=== PATIENT | male | born 1945 | race Caucasian/White ===

== ENCOUNTER 2022-01-02 00:24 | Day surgery (SDC) | payer MEDICARE, OTHER, SELFPAY ==
[2021-12-22 14:36] VITALS: BMI 30.7
[2022-01-02 07:42] VITALS: BP 172/76; PULSE 76; RESP 18; TEMP 36.4; O2SAT 97
[2022-01-02 07:42] LABS: Glucose Point of Care 105 mg/dl (65-105)
[2022-01-02] MEDS: SODIUM CHLORIDE 0.9% IV 500 ML 10 ML IV CONT (07:45)
--- NOTE | 2022-01-02 07:46 | WPDANESEPPF ---
Anes - Initial Pre Proc Eval Procedure: Operation Date: 01/02/22 08:30 Proposed Procedures p Screening Colonoscopy - Donnell Jesus MD Date/Time: 01/02/22 07:46 Surgeon: Donnell Jesus MD Pre Op Diagnosis: hx of colon polyps Patient Data Age: 76 Gender: M Height: 1.7 m Weight: 89.2 kg Last Vital Signs Temp 36.4 C 01/02/22 07:42 Pulse 76 01/02/22 07:42 Resp 18 01/02/22 07:42 BP 172/76 H 01/02/22 07:42 Pulse Ox 97 01/02/22 07:42 Allergies Allergy/AdvReac Type Severity Reaction Status Date / Time No Known Allergies Allergy Unverified 01/02/22 07:41 Home Medications Medication Instructions Recorded Confirmed Type albuterol sulfate 90 mcg/actuation 2 puff INHALATION Q4H PRN g 10/31/21 01/02/22 History aerosol inhaler aspirin 81 mg tablet,delayed 81 mg PO DAILY 10/31/21 01/02/22 History release atorvastatin 20 mg tablet 20 mg PO QHS tablet 10/31/21 01/02/22 History carvedilol 25 mg tablet 25 mg PO BID tablet 10/31/21 01/02/22 History clonidine HCl 0.1 mg tablet 0.1 mg PO BID tablet 10/31/21 01/02/22 History dulaglutide 1.5 mg/0.5 mL 1.5 mg SUBCUT WEEKLY 10/31/21 01/02/22 History subcutaneous pen injector insulin glargine 100 unit/mL (3 8 unit SUBCUT DAILY ml 10/31/21 01/02/22 History mL) subcutaneous pen insulin lispro 100 unit/mL 4 unit SUBCUT .TIDAC ml 10/31/21 01/02/22 History subcutaneous pen latanoprost 0.005 % eye drops, 1 drp EACH EYE DAILY 10/31/21 01/02/22 History emulsion loratadine 10 mg tablet 10 mg PO DAILY 10/31/21 01/02/22 History losartan 100 mg tablet 100 mg PO DAILY 10/31/21 01/02/22 History sildenafil 100 mg tablet 100 mg PO DAILY PRN 10/31/21 01/02/22 History Laboratory Tests 01/02/22 07:39 POC Capillary Glucose 105 mg/dl mg/dl (65-105) Patient hx anesthesia problems: none Family hx anesthesia problems: none Results Review: All pre-operative results and documents have been reviewed as part of the pre-operative evaluation. [facility] Past Medical History Medical History CAD in [place] artery COPD (chronic obstructive pulmonary disease) Dyslipidemia Environmental allergies Essential (primary) hypertension History of colon polyps IDDM (insulin dependent diabetes mellitus) CARITO (obstructive sleep apnea) Vitamin D deficiency Surgical History Surgical History History of appendectomy (~1962) History of coronary artery bypass graft (~2013) Family History Family History Mother Diabetes mellitus Acute myocardial infarction Family history of congestive heart failure Father Hypertension Social History Social History Smoking packs per day: 2 Smoking cigarettes per day: 40.0 Years smoked: 10 Smoking pack-years: 20.00 Smoking status: Former smoker Tobacco type: cigarettes Alcohol intake: former Substance use: never Substance use type: does not use Living arrangements: with family Spiritual care concerns: No Anes - Eval Final PreProcedure Day of Procedure 01/02/22 07:46 Patient weight: obese Heart: regular rate and rhythm Lungs: clear to auscultation Airway: Mallampati scale class III Neurological: alert and oriented Last oral intake: >/= 8 hours ASA classification: IV Emergent: no Anesthetic plan: proceed Anesthesia type and monitoring: general GIVS and standard monitoring Results Review: All pre-operative results and documents have been reviewed as part of the pre-operative evaluation. Informed Consent: The patient's anesthetic plan and its attendant risks and benefits were discussed with the patient/family/POA. Questions were solicited and answers provided to the satisfaction of the patient/family/POA.
--- NOTE | 2022-01-02 08:26 | PM.HPGS ---
History of Present Illness History of Present Illness Consent: Risks, benefits, and alternatives have been discussed and questions answered. Patient agrees to proceed with procedure. Chief complaint: hx of colon polyps Narrative: Sam Morrissey is a 76 year old male with colon polyp about 6 years ago. Review of Systems Constitutional: Constitutional: Denies headache(s) and Denies weakness Eyes: Eyes: Denies blurry vision ENT: Reports Normal hearing present, Denies headache(s) and Denies neck pain Cardiovascular: Cardiovascular: Denies chest pain and Denies dyspnea Respiratory: Respiratory: Denies dyspnea Gastrointestinal: Gastrointestinal: Reports no additional gastrointestinal complaints Genitourinary: Genitourinary: Denies dysuria Musculoskeletal: Musculoskeletal: Denies neck pain Integumentary/Breasts: Skin/Breast: Denies dry skin Neurologic: Reports Normal hearing present, Denies headache(s) and Denies weakness Psychiatric: Psychiatric: Denies anxiety Endocrine: Endocrine: Denies change in body appearance Hematologic/Lymphatic: Hematologic/Lymphatic: Denies easy bleeding Allergic/Immunologic: Allergic/Immunologic: Denies urticaria PMFSH Past Medical History Medical History (Updated 01/02/22 @ 08:27 by Donnell Jesus MD) CAD in [place] artery Colon polyp COPD (chronic obstructive pulmonary disease) Dyslipidemia Environmental allergies Essential (primary) hypertension History of colon polyps IDDM (insulin dependent diabetes mellitus) CARITO (obstructive sleep apnea) Vitamin D deficiency Surgical History Surgical History History of appendectomy (~1962) History of coronary artery bypass graft (~2013) Family History Family History Mother Diabetes mellitus Acute myocardial infarction Family history of congestive heart failure Father Hypertension Social History Social History Smoking packs per day: 2 Smoking cigarettes per day: 40.0 Years smoked: 10 Smoking pack-years: 20.00 Smoking status: Former smoker Tobacco type: cigarettes Alcohol intake: former Substance use: never Substance use type: does not use Living arrangements: with family Spiritual care concerns: No Meds Home Medications and Allergies Home Medications Medication Instructions Recorded Confirmed Type albuterol sulfate 90 mcg/actuation 2 puff INHALATION Q4H PRN g 10/31/21 01/02/22 History aerosol inhaler aspirin 81 mg tablet,delayed 81 mg PO DAILY 10/31/21 01/02/22 History release atorvastatin 20 mg tablet 20 mg PO QHS tablet 10/31/21 01/02/22 History carvedilol 25 mg tablet 25 mg PO BID tablet 10/31/21 01/02/22 History clonidine HCl 0.1 mg tablet 0.1 mg PO BID tablet 10/31/21 01/02/22 History dulaglutide 1.5 mg/0.5 mL 1.5 mg SUBCUT WEEKLY 10/31/21 01/02/22 History subcutaneous pen injector insulin glargine 100 unit/mL (3 8 unit SUBCUT DAILY ml 10/31/21 01/02/22 History mL) subcutaneous pen insulin lispro 100 unit/mL 4 unit SUBCUT .TIDAC ml 10/31/21 01/02/22 History subcutaneous pen latanoprost 0.005 % eye drops, 1 drp EACH EYE DAILY 10/31/21 01/02/22 History emulsion loratadine 10 mg tablet 10 mg PO DAILY 10/31/21 01/02/22 History losartan 100 mg tablet 100 mg PO DAILY 10/31/21 01/02/22 History sildenafil 100 mg tablet 100 mg PO DAILY PRN 10/31/21 01/02/22 History Allergies Allergy/AdvReac Type Severity Reaction Status Date / Time No Known Allergies Allergy Unverified 01/02/22 07:41 Vital Signs Vital Signs - 24 hr 01/02/22 07:42 Temperature 97.6 F Pulse Rate 76 Respiratory Rate 18 Blood Pressure 172/76 H Pulse Oximetry 97 Exam Const: General: comfortable and no acute distress HENMT: General nose exam: Normal nares present Eyes: General: appearanc
[2022-01-02 08:50] VITALS: BP 95/45; PULSE 74; RESP 20; O2SAT 96
[2022-01-02 09:00] VITALS: BP 104/49; PULSE 72; RESP 20; O2SAT 99
[2022-01-02 09:04] LABS: Glucose Point of Care 110 mg/dl (65-105)
[2022-01-02 09:10] VITALS: BP 108/50; PULSE 68; RESP 20; O2SAT 100
== END 2022-01-02 09:24 | disposition home or self-care (01) ==
PROVIDERS: PCP Family Medicine; Visit Provider Internal Medicine Gastroenterology
PROC: 0DJD8ZZ Inspection of Lower Intestinal Tract, Via Natural or Artificial Opening Endoscopic (ICD-10-PCS; CPT 45378; principal; 2022-01-02 08:30)
DX: Z12.11 Encounter for screening for malignant neoplasm of colon (principal); Z86.010 Personal history of colon polyps; K64.8 Other hemorrhoids; I25.10 Atherosclerotic heart disease of native coronary artery without angina pectoris; J44.9 Chronic obstructive pulmonary disease, unspecified; E78.5 Hyperlipidemia, unspecified; E11.9 Type 2 diabetes mellitus without complications; E55.9 Vitamin D deficiency, unspecified; G47.33 Obstructive sleep apnea (adult) (pediatric); Z87.891 Personal history of nicotine dependence; Z79.82 Long term (current) use of aspirin; Z79.4 Long term (current) use of insulin; Z79.51 Long term (current) use of inhaled steroids; E66.9 Obesity, unspecified; Z68.30 Body mass index [BMI] 30.0-30.9, adult
CPT/HCPCS: G0105; 82948; J2704; J7040

== ENCOUNTER 2022-11-22 08:29 | Outpatient (CLI) | payer MEDICARE, OTHER, SELFPAY ==
[2022-11-22 20:11] LABS: Alanine Aminotransferase 15 U/L (6-50); Albumin Level 3.6 g/dL (3.5-5.1); Alkaline Phosphatase 57 U/L (38-126); Anion Gap 8 mmol/L (8-16); Aspartate Amino Transferase 20 U/L (17-59); Bilirubin,Total 0.4 mg/dL (0.2-1.3); Blood Urea Nitrogen 20 mg/dL (9-20); Calcium 10.3 mg/dL (8.4-10.2); Carbon Dioxide 33 mmol/L (22-30); Chloride 94 mmol/L (98-107); Cholesterol 86 mg/dL (0-200); Estimated Glomerular Filt Rate 9; Glucose 78 mg/dL (65-110); HDL Direct 33 mg/dL; Potassium 4.5 mmol/L (3.4-5.0); Sodium 135 mmol/L (137-145); Triglycerides 140 mg/dL (<150)
[2022-11-22 20:24] LABS: Vitamin D 25 Hydroxy 18.4 ng/mL
[2022-11-22 20:34] LABS: Basophils Absolute Auto 0.1 K/mm3 (0.0-0.1); Basophils Percent Auto 1.2 % (0.2-1.2); Eosinophils Absolute Auto 0.1 K/mm3 (0-0.3); Hematocrit 34.8 % (42.0-52.0); Hemoglobin 11.3 g/dL (14.0-18.0); Immature Granulocyte Absolute 0.02 K/mm3 (0.00-0.031); Immature Granulocyte Percent A 0.3 % (0-0.5); Lymphocytes Percent Auto 18.6 % (18.3-44.2); Mean Corpuscular HGB Conc 32.5 g/dl (32-36); Mean Corpuscular Hemoglobin 32.2 pg (26-34); Mean Corpuscular Volume 99.1 fl (80-100); Mean Platelet Volume 12.1 fl (7.4-10.4); Monocytes Absolute Auto 0.8 K/mm3 (0.1-0.6); Monocytes Percent Auto 12.8 % (2.6-8.5); Neutrophils Absolute Auto 3.9 K/mm3 (1.3-6.7); Neutrophils Percent Auto 65.1 % (45.5-73.1); Platelet Count Result 172 k/mm3 (150-375); Red Blood Count 3.51 M/mm3 (4.6-6.20); Red Cell Distribution Width 13.2 % (11.5-14.5); White Blood Count 5.9 K/mm3 (4.5-10.0)
[2022-11-22 20:38] LABS: Thyroid Stimulating Hormone Reflex 0.884 uIU/mL (0.465-4.68)
[2022-11-22 20:41] LABS: Prostate Specific Antigen 2.5 ng/mL (< OR = 4.0)
[2022-11-22 22:04] LABS: LDL Cholesterol Direct < 30 mg/dL
== END 2022-11-22 08:30 | disposition home or self-care (01) ==
LOC: ANHGOSHLAB 08:33
PROVIDERS: PCP Family Medicine; Visit Provider Family Medicine
DX: R23.8 Other skin changes (principal); I10 Essential (primary) hypertension; E78.5 Hyperlipidemia, unspecified; Z12.5 Encounter for screening for malignant neoplasm of prostate; E53.8 Deficiency of other specified B group vitamins; E55.9 Vitamin D deficiency, unspecified
CPT/HCPCS: 36415; 80053; 80061; 82306; 82607; 84153; 84443; 85025; G0103

== ENCOUNTER 2023-03-16 13:45 | Outpatient (CLI) | payer MEDICARE, OTHER, SELFPAY ==
--- NOTE | ~2023-03-16 | US_ITS ---
EXAMINATION: US art doppler w claudia SHIN DATE: 03/16/2023 15:20 INDICATION: Peripheral vascular disease with chronic ulcers at the right foot TECHNIQUE: Segmental pressures and plethysmographic and Doppler waveforms of the brachial and lower e xtremity arteries were obtained. COMPARISON: None. FINDINGS: Right brachial artery pressure of 188 mmHg . Left brachial pressure unable to be obtained due to pres ence of a left upper extremity dialysis fistula. Segmental pressures and right ankle-brachial index ( MARTY) are unable to be obtained due to inability to occlude the vessels throughout out the right lower limb with the exception of the right low thigh. The right great toe-brachial index (TBI) is 0.23 (no rmal >= 0.6-0.8). Arterial waveforms are biphasic with brisk systolic upstrokes at the right common f emoral and superficial femoral arteries, with borderline delayed upstrokes at the right popliteal and posterior tibial arteries and biphasic with parvus and tardus waveform with delayed upstrokes at the right dorsalis pedis artery. Segmental pressures in the left lower limb and left MARTY and TBI were unable to be obtained due to ebony udible pulses at the left dorsalis pedis and posterior tibial arteries. There are biphasic waveforms throughout the arteries of the left lower limb with normal systolic upstroke the left common femoral artery but with progressively delayed upstrokes in the left superficial femoral, popliteal, posterior tibial and dorsalis pedis arteries. IMPRESSION: 1. 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 More extensive parvus et tardu s waveforms at and distal to the right superficial femoral artery with inaudible but dopplerable puls es at the ankle precluding pressure measurements. Reviewed, dictated and finalized at location A. IMPRESSION: 1. Arterial occlusive disease at the bilateral lower limbs with moderate to sev erely decreased right TBI with parvus et tardus waveform at the right dorsalis pedis artery. More extensive parvus et tardus waveforms at and distal to the ri ght superficial femoral artery with inaudible but dopplerable pulses at the ank le precluding pressure measurements.
== END 2023-03-16 13:46 | disposition home or self-care (01) ==
PROVIDERS: PCP Family Medicine; Visit Provider Podiatrist Foot & Ankle Surgery
DX: E10.621 Type 1 diabetes mellitus with foot ulcer (principal); I73.9 Peripheral vascular disease, unspecified; L97.512 Non-pressure chronic ulcer of other part of right foot with fat layer exposed
CPT/HCPCS: 93923

== ENCOUNTER 2023-10-25 07:14 | Inpatient (IN) | payer MEDICARE, OTHER, SELFPAY ==
[2023-10-25] VITALS (32 sets, daily range): BP systolic 106–163; BP diastolic 36–85; PULSE 60–100; RESP 12–25; TEMP 36.2–37; O2SAT 94–100; BMI 29.7
--- NOTE | ~2023-10-25 | XR_ITS ---
Clinical Indication: Shortness of breath PA and lateral views of the chest: Comparison: 02/24/2019 Findings: There are small bilateral pleural effusions.. Cardiomediastinal silhouette is stable. Bone s and soft tissues are unremarkable. Impression: Small bilateral pleural effusions. Reviewed, dictated and finalized at location . WAREHOUSE ASSOCIATE Impression: Small bilateral pleural effusions.
--- NOTE | 2023-10-25 07:22 | ECG_ITS ---
Measurements Intervals [place] Rate: 70 P: -62 NE: 180 QRS: -19 QRSD: 149 T: 40 QT: 456 QTc: 494 Interpretive Statements SINUS RHYTHM RIGHT BUNDLE BRANCH BLOCK BORDERLINE ST-T WAVE ABNORMALITY- ANTEROLATERAL LEADS ABNORMAL ECG BASELINE ARTIFACT- I, II, III, AVR, AVF, V3 NO PREVIOUS ECG AVAILABLE FOR COMPARISON Electronically Signed On 10-25-2023 7:40:53 [employer] by Chiki Parra D.O.
--- NOTE | 2023-10-25 08:28 | PC.NURSE ---
pt attempted to urinate but was unsuccessful
[2023-10-25 08:32] LABS: Basophils Percent Auto 0.9 % (0.2-1.2); Eosinophils Absolute Auto 0.1 K/mm3 (0-0.3); Eosinophils Percent Auto 1.3 % (0-4.4); Hematocrit 21.4 % (42.0-52.0); Immature Granulocyte Absolute 0.02 K/mm3 (0.00-0.031); Immature Granulocyte Percent A 0.4 % (0-0.5); Lymphocytes Absolute Auto 0.71 K/mm3 (0.9-3.2); Lymphocytes Percent Auto 15.4 % (18.3-44.2); Mean Corpuscular HGB Conc 30.8 g/dl (32-36); Mean Corpuscular Hemoglobin 32.2 pg (26-34); Mean Corpuscular Volume 104.4 fl (80-100); Mean Platelet Volume 11.7 fl (7.4-10.4); Monocytes Absolute Auto 0.5 K/mm3 (0.1-0.6); Monocytes Percent Auto 10.7 % (2.6-8.5); Neutrophils Absolute Auto 3.3 K/mm3 (1.3-6.7); Neutrophils Percent Auto 71.3 % (45.5-73.1); Platelet Count Result 190 k/mm3 (150-375); Red Blood Count 2.05 M/mm3 (4.6-6.20); Red Cell Distribution Width 15.8 % (11.5-14.5); White Blood Count 4.6 K/mm3 (4.5-10.0)
[2023-10-25 08:38] LABS: Hemoglobin 6.6 g/dL (14.0-18.0)
[2023-10-25 08:45] LABS: Alanine Aminotransferase 13 U/L (6-50); Albumin Level 3.5 g/dL (3.5-5.1); Alkaline Phosphatase 35 U/L (38-126); Anion Gap 11 mmol/L (8-16); Aspartate Amino Transferase 19 U/L (17-59); Bilirubin,Total 0.4 mg/dL (0.2-1.3); Blood Urea Nitrogen 45 mg/dL (9-20); Calcium 9.9 mg/dL (8.4-10.2); Carbon Dioxide 29 mmol/L (22-30); Chloride 95 mmol/L (98-107); Estimated CRCL calculation 9 ml/min; Estimated Glomerular Filt Rate 8; Glucose 127 mg/dL (65-110); Potassium 4.4 mmol/L (3.4-5.0); Sodium 135 mmol/L (137-145)
--- NOTE | 2023-10-25 09:02 | ED.GENADULT ---
HPI - General Adult General Chief complaint: Recheck/Abnormal Lab/Rx Stated complaint: Low Hemaglobin SOB Time Seen by Provider: 10/25/23 07:24 History of Present Illness HPI narrative: Patient is a 78-year-old male who presents ER with low hemoglobin. Patient has been having exertional shortness of breath and fell down going into dialysis. It was found his hemoglobin was 7.2 in the stop dialysis and sent him here. Patient does report he has been having dark stools over last week. He takes baby aspirin daily and is on no other blood thinning medications. His last blood transfusion was in 1967. He receives IV iron infusions at dialysis. He does not take oral iron. Related Data Home Medications Medication Instructions Recorded Confirmed aspirin 81 mg tablet,delayed 81 mg PO DAILY 10/31/21 10/25/23 release atorvastatin 20 mg tablet 20 mg PO QHS 10/31/21 10/25/23 carvedilol 25 mg tablet 25 mg PO BID 10/31/21 10/25/23 clonidine HCl 0.1 mg tablet 0.1 mg PO BID 10/31/21 10/25/23 dulaglutide 1.5 mg/0.5 mL 1.5 mg subcut WEEKLY 10/31/21 10/25/23 subcutaneous pen injector (Trulicity) insulin lispro 100 unit/mL 4 unit subcut .TIDAC 10/31/21 10/25/23 subcutaneous pen loratadine 10 mg tablet (Claritin) 10 mg PO DAILY 10/31/21 10/25/23 losartan 100 mg tablet 100 mg PO DAILY 10/31/21 10/25/23 sildenafil 100 mg tablet (Viagra) 100 mg PO PRN PRN impotence 10/31/21 10/25/23 insulin glargine 100 unit/mL (3 10 unit subcut DAILY 11/01/22 10/25/23 mL) subcutaneous pen (Lantus Solostar U-100 Insulin) amlodipine 10 mg tablet mg 10/25/23 finasteride 5 mg tablet 5 mg 10/25/23 sevelamer HCl 800 mg tablet 800 mg PO 10/25/23 Allergies Allergy/AdvReac Type Severity Reaction Status Date / Time No Known Allergies Allergy Verified 10/25/23 15:40 Review of Systems Review of Systems: All systems reviewed & are unremarkable except as noted in HPI and below Constitutional: Constitutional: Reports no additional constitutional complaints ENT: Reports system reviewed and no additional complaints, except as documented Cardiovascular: Cardiovascular: Reports no additional cardiovascular complaints Respiratory: Respiratory: Denies cough, Reports dyspnea and Denies wheezing Gastrointestinal: Gastrointestinal: Reports no additional gastrointestinal complaints Neurologic: Reports syncope, Denies headache(s), Denies focal weakness and Denies numbness [facility] Past Medical History Medical History (Updated 10/25/23 @ 18:20 by Akhil Castillo MD) CAD in [place] artery COPD (chronic obstructive pulmonary disease) Dyslipidemia Environmental allergies Essential (primary) hypertension History of colon polyps IDDM (insulin dependent diabetes mellitus) CARITO (obstructive sleep apnea) Vitamin D deficiency Surgical History Surgical History Arteriovenous fistula of left upper extremity (~2017) History of appendectomy (~1962) History of coronary artery bypass graft (~2013) Family History Family History Mother Diabetes mellitus Acute myocardial infarction Family history of congestive heart failure Father Hypertension Social History Social History Smoking packs per day: 1.5 Smoking cigarettes per day: 30.0 Years smoked: 10 Smoking pack-years: 15.00 Smoking status: Former smoker Tobacco type: cigarettes Alcohol intake: never Alcohol use details: Maybe 1 per year Substance use: never Substance use type: does not use Do You Feel Safe in your Home?: Yes Lack of Transportation: No Lack of Food: Never True Current Housing: I Have Housing Concerned About Future Housing: No Difficulty Paying Gas/Electric Bills: No Difficulty Paying for Meds: No Currently Unemployed: No Education: Associate Degree Difficulty w/ Childc
--- NOTE | 2023-10-25 09:40 | PC.NURSE ---
Patient asked to urinate againand states he is unable to. Will bladder scan
[2023-10-25] MEDS: PANTOPRAZOLE SODIUM IV 40 MG VIAL IV PUSH (10:09)
[2023-10-25] MEDS: SODIUM CHLORIDE 0.9% IV 250 ML 30 ML IV CONT (10:10)
[2023-10-25 10:18] LABS: Appearance Urine Cloudy (Clear); Bacteria Urine None Seen /hpf; Bilirubin Urine Negative (Negative); Blood Urine Negative (Negative); Color Urine Yellow (Yellow); Glucose Urine UA Trace mg/dL (Negative); Ketones Urine Negative (Negative); Leukocyte Esterase Ur Negative LEU/UL (Negative); Nitrate Urine Negative (Negative); Non Pathogenic Casts 0-2; Protein Urine 3+ mg/dL (Negative); RBC Urine 0-2 /hpf (0-2); Specific Grav Ur 1.013 (1.001-1.035); Squamous Epithelial Cell Urine None seen /hpf (Few); Urobilinogen Urine 0.2 mg/dL (<2.0); WBC Urine 0-5 /hpf; pH Urine >=9.0 (5.0-9.0)
[2023-10-25] MEDS: TUBING, BLOOD PLUM PUMP TUBING 1 EACH XX (10:20)
[2023-10-25 10:23] LABS: Add Urine Microscopic? YES
--- NOTE | 2023-10-25 10:39 | WPDGICN ---
Assessment and Plan Assessment and plan (1) Acute blood loss anemia: Code(s): D62 - Acute posthemorrhagic anemia Status: Acute Assessment and Plan: his blood counts have dropped acutely although he has no evidence of bleeding. He denies Abdominal pain nausea or vomiting. He denies significant heartburn. He has not seen blood in his stools. There was 1 dark stool several days ago but none since then. His MCV is elevated not consistent with iron deficiency or chronic blood loss. (2) End-stage renal disease on hemodialysis: Code(s): N18.6 - End stage renal disease; Z99.2 - Dependence on renal dialysis Status: Acute Assessment and Plan: During dialysis a noticed a significant drop in his hemoglobin. (3) COPD (chronic obstructive pulmonary disease): Code(s): J44.9 - Chronic obstructive pulmonary disease, unspecified Status: Acute Assessment and Plan: He denies being short winded Plan he had EGD and colonoscopy less than 2 years ago which were not remarkable. Will schedule for EGD today because of the recent black stool. If iron levels are low he may benefit from iron transfusion. GI Consult Note Consult date/time: 10/25/23 10:39 HPI: Sam Morrissey is a 78 year old male was brought to emergency room this morning when at dialysis he was found have a hemoglobin of 7.2. Here it is lower, 6.6. Usually his hemoglobin is 11 her higher. He did have a black stool about 3 or 4 days ago. He states that was only 1 time. He has had no abdominal pain nausea or vomiting. He denies dysphagia or significant heartburn. He has had no significant change in bowel habits. He did have a colonoscopy for screening not quite 2 years ago which was unremarkable. He does not take NSAIDs but does take a baby aspirin once daily. Review of Systems Review of Systems: All systems reviewed & are unremarkable except as noted in HPI and below PMFSH Past Medical History Medical History CAD in [place] artery COPD (chronic obstructive pulmonary disease) Dyslipidemia Environmental allergies Essential (primary) hypertension History of colon polyps IDDM (insulin dependent diabetes mellitus) CARITO (obstructive sleep apnea) Vitamin D deficiency Surgical History Surgical History Arteriovenous fistula of left upper extremity (~2018) History of appendectomy (~1963) History of coronary artery bypass graft (~2013) Family History Family History Mother Diabetes mellitus Acute myocardial infarction Family history of congestive heart failure Father Hypertension Social History Social History Smoking packs per day: 2 Smoking cigarettes per day: 40.0 Years smoked: 10 Smoking pack-years: 20.00 Smoking status: Former smoker Tobacco type: cigarettes Alcohol intake: current Alcohol use details: Maybe 1 per year Substance use: never Substance use type: does not use Living arrangements: with family Occupation/Education: retired Gender identity (if verbalized by the patient): Male Sexual Orientation (if Verbalized by the Patient): Straight or Heterosexual Spiritual care concerns: No Agree to blood products: Yes Meds Home Medications and Allergies Home Medications Medication Instructions Recorded Confirmed Type aspirin 81 mg tablet,delayed 81 mg PO DAILY 10/31/21 10/25/23 History release atorvastatin 20 mg tablet 20 mg PO QHS 10/31/21 10/25/23 History carvedilol 25 mg tablet 25 mg PO BID 10/31/21 10/25/23 History clonidine HCl 0.1 mg tablet 0.1 mg PO BID 10/31/21 10/25/23 History dulaglutide 1.5 mg/0.5 mL 1.5 mg subcut WEEKLY 10/31/21 10/25/23 History subcutaneous pen injector (Trulicity) insulin lispro
--- NOTE | 2023-10-25 11:12 | PC.NURSE ---
pt transferred to dialysis by tech
--- NOTE | 2023-10-25 11:47 | PM.IMHP ---
H&P: HPI History of Present Illness Date/Time: 10/25/23 11:47 Chief Complaint: Black stool, lightheadedness and shortness of breath with exertion Narrative: 78-year-old gentleman with history of end-stage renal disease on hemodialysis, hypertension, insulin-dependent diabetes, chronic anemia, hypertension, CAD, present ED with a chief complaint of black stool, lightheadedness, shortness breast exertion. Patient noticed black stool in past few more days, and patient also has worsening general weakness in past few days. Patient has shortness of breath with mild exertion in possible days. Patient has lightheadedness today. Patient went to dialysis today on scheduled appointment, and patient was found to have profound anemia, therefore patient was referred to ED for further evaluation and treatment. Patient denies taking NSAID except a baby aspirin, patient also denies abdomen pain, nausea vomiting diarrhea or bright blood per rectal. In the ED, patient was found have profound anemia hemoglobin 6.6, baseline hemoglobin 11.2 in November 2022. Patient was afebrile, blood pressure stable, patient also found have elevated BUN creatinine above baseline, chest x-ray shows small bilateral pleural effusion, cardiomegaly. Patient received 2 pack RBC in the ED, ER physician also consulted GI and residential solar consultant. We admit patient for further evaluation and management PMFSH Past Medical History Medical History CAD in [place] artery COPD (chronic obstructive pulmonary disease) Dyslipidemia Environmental allergies Essential (primary) hypertension History of colon polyps IDDM (insulin dependent diabetes mellitus) CARITO (obstructive sleep apnea) Vitamin D deficiency Surgical History Surgical History Arteriovenous fistula of left upper extremity (~2018) History of appendectomy (~1963) History of coronary artery bypass graft (~2014) Family History Family History Mother Diabetes mellitus Acute myocardial infarction Family history of congestive heart failure Father Hypertension Social History Social History Smoking packs per day: 2 Smoking cigarettes per day: 40.0 Years smoked: 10 Smoking pack-years: 20.00 Smoking status: Former smoker Tobacco type: cigarettes Alcohol intake: current Alcohol use details: Maybe 1 per year Substance use: never Substance use type: does not use Living arrangements: with family Occupation/Education: retired Gender identity (if verbalized by the patient): Male Sexual Orientation (if Verbalized by the Patient): Straight or Heterosexual Spiritual care concerns: No Agree to blood products: Yes Meds Home Medications and Allergies Home Medications Medication Instructions Recorded Confirmed Type aspirin 81 mg tablet,delayed 81 mg PO DAILY 10/31/21 10/25/23 History release atorvastatin 20 mg tablet 20 mg PO QHS 10/31/21 10/25/23 History carvedilol 25 mg tablet 25 mg PO BID 10/31/21 10/25/23 History clonidine HCl 0.1 mg tablet 0.1 mg PO BID 10/31/21 10/25/23 History dulaglutide 1.5 mg/0.5 mL 1.5 mg subcut WEEKLY 10/31/21 10/25/23 History subcutaneous pen injector (Trulicity) insulin lispro 100 unit/mL 4 unit subcut .TIDAC 10/31/21 10/25/23 History subcutaneous pen loratadine 10 mg tablet (Claritin) 10 mg PO DAILY 10/31/21 10/25/23 History losartan 100 mg tablet 100 mg PO DAILY 10/31/21 10/25/23 History sildenafil 100 mg tablet (Viagra) 100 mg PO PRN PRN impotence 10/31/21 10/25/23 History insulin glargine 100 unit/mL (3 10 unit subcut DAILY 11/01/22 10/25/23 History mL) subcutaneous pen (Lantus Solostar U-100 Insulin) amlodipine 10 mg tablet mg 10/25/23 History finasteride 5 mg tablet 5 mg 10/25/23 History sevelamer
[2023-10-25 11:52] LABS: Hepatitis B Surface Antigen Negative (Negative)
[2023-10-25 12:10] LABS: Hepatitis B Surface Anti Res Positive
[2023-10-25 12:14] LABS: Iron 80 ug/dL (49-181)
[2023-10-25 12:16] LABS: INR 1.1; Prothrombin Time 14.2 Seconds (11.1-14.7)
[2023-10-25 12:17] LABS: Partial Thromboplastin Time 36.1 SECONDS (22.3-36.8)
--- NOTE | 2023-10-25 12:20 | PM.CNNEP ---
Assessment and Plan Assessment and plan (1) End stage renal disease: Code(s): N18.6 - End stage renal disease Status: Chronic Assessment and Plan: HD today continue T/T/S outpatient dialysis schedule while hospitalized follow electrolytes, volume status, and clearance (2) Anemia: Code(s): D64.9 - Anemia, unspecified Status: Acute Assessment and Plan: noted drop in hemoglobin by outpatient labs and labs done in ER GI loss is of concern - GI consultation/recommendations noted PRBC transfusion per protocol Epogen with HD follow trend of H/H (3) COPD (chronic obstructive pulmonary disease): Code(s): J44.9 - Chronic obstructive pulmonary disease, unspecified Status: Chronic Assessment and Plan: appears stable/compensated supplemental oxygen PRN nebulizers PRN continue supportive therapy (4) Essential (primary) hypertension: Code(s): I10 - Essential (primary) hypertension Status: Chronic Assessment and Plan: reasonable control at this time follow trend of hemodynamics (5) IDDM (insulin dependent diabetes mellitus): Status: Chronic Assessment and Plan: follow accu-cheks glycemic control per hospitalists I will continue follow the patient with you while he remains hospitalized and make further recommendations as needed. Thank you for allowing me to participate in the care of this patient. History of Present Illness Reason for Consult Consult date: 10/25/23 Reason for consult: end stage renal disease Chief Complaint Chief complaint: gi bleeding,anemia,esrd History of Present Illness Narrative: The patient is a 78-year-old male with a past medical history as outlined below who presented to [facility] Emergency Room from his dialysis center for complaints of dizziness, lightheadedness, and shortness of breath. The patient presented to his outpatient dialysis center earlier today for his regularly scheduled dialysis treatment. It was noted by the dialysis nurses that on his presentation to the facility, he seemed to be a bit weaker than his baseline. Furthermore, just walking into the treatment room, he reported some worsening shortness of breath. On further questioning he reports generalized weakness over the past few days in association with lightheadedness. His dialysis treatment was initiated but he continued to have complaints of shortness of breath, dizziness, lightheadedness and upon review of his most recent lab work, his hemoglobin had dropped significantly to 7.2. It was felt that this drop in his hemoglobin may explain his symptoms and his dialysis treatment was discontinued and he was subsequently transferred to [facility] Emergency Room for further assessment. Upon further questioning in the emergency room, the patient reported that he noted black tarry stools a few times several days ago which seems to correlate with his symptoms of fatigue/ weakness / dizziness /lightheadedness, shortness of breath. Shortness of breath is not prominent and rest seems to be more exacerbated by exertion and was he reports no NSAID use aside from a baby aspirin daily and denies any other symptoms with regard to abdominal pain, nausea, vomiting, diarrhea, or BRBPR. in the emergency room, he was found to be hemodynamically stable and in no acute distress. Repeat testing demonstrated labs consistent with his known history of end-stage renal disease but his hemoglobin was found to be 6.6. His hemoglobin normally runs significantly higher than this at baseline with labs in November of 2022 showing a hemoglobin of 11.2. His chest x-ray showed small bilateral pleural effusions and cardiomegaly but no other acute abnormalities. He was typed and crossed for packed red blood cell transfusion and Gastroenterology was consulted as well. He was subsequently admitted to the hospital for further evaluation and therapy. Re
[2023-10-25 12:24] LABS: Percent Iron Saturation 25 % (20-50)
[2023-10-25] MEDS: SODIUM CHLORIDE 0.9% IV 1,000 ML 999 ML IV CONT (14:20)
[2023-10-25] MEDS: EPOETIN ALFA-EPBX 10,000 UNITS/ML VIAL 20000 UNITS IV PUSH (14:43)
--- NOTE | 2023-10-25 15:37 | WPDANESEPPF ---
Anes - Initial Pre Proc Eval Procedure: Operation Date: 10/25/23 15:30 Proposed Procedures p Esophagogastroduodenoscopy - Elfego Moreno MD Date/Time: 10/25/23 15:37 Surgeon: Venkata Turpin MD Pre Op Diagnosis: gi bleeding,anemia,esrd Patient Data Age: 78 Gender: M Height: 1.7 m Weight: 86 kg Last Vital Signs Temp 36.8 C 10/25/23 15:15 Pulse 70 10/25/23 15:15 Resp 16 10/25/23 15:15 BP 122/54 L 10/25/23 15:15 Pulse Ox 99 10/25/23 10:33 O2 Del Method Room Air 10/25/23 07:16 Allergies Allergy/AdvReac Type Severity Reaction Status Date / Time No Known Allergies Allergy Verified 10/25/23 08:11 Home Medications Medication Instructions Recorded Confirmed Type aspirin 81 mg tablet,delayed 81 mg PO DAILY 10/31/21 10/25/23 History release atorvastatin 20 mg tablet 20 mg PO QHS 10/31/21 10/25/23 History carvedilol 25 mg tablet 25 mg PO BID 10/31/21 10/25/23 History clonidine HCl 0.1 mg tablet 0.1 mg PO BID 10/31/21 10/25/23 History dulaglutide 1.5 mg/0.5 mL 1.5 mg subcut WEEKLY 10/31/21 10/25/23 History subcutaneous pen injector (Trulicity) insulin lispro 100 unit/mL 4 unit subcut .TIDAC 10/31/21 10/25/23 History subcutaneous pen loratadine 10 mg tablet (Claritin) 10 mg PO DAILY 10/31/21 10/25/23 History losartan 100 mg tablet 100 mg PO DAILY 10/31/21 10/25/23 History sildenafil 100 mg tablet (Viagra) 100 mg PO PRN PRN impotence 10/31/21 10/25/23 History insulin glargine 100 unit/mL (3 10 unit subcut DAILY 11/01/22 10/25/23 History mL) subcutaneous pen (Lantus Solostar U-100 Insulin) amlodipine 10 mg tablet mg 10/25/23 History finasteride 5 mg tablet 5 mg 10/25/23 History sevelamer HCl 800 mg tablet 800 mg PO 10/25/23 History Laboratory Tests 10/25/23 10/25/23 10/25/23 08:20 08:21 10:08 WBC 4.6 K/mm3 (4.5-10.0) RBC 2.05 L M/mm3 (4.6-6.20) Hgb 6.6 L* D g/dL (14.0-18.0) Hct 21.4 L % (42.0-52.0) MCV 104.4 H fl (80-100) MCH 32.2 pg (26-34) MCHC 30.8 L g/dl (32-36) RDW 15.8 H % (11.5-14.5) Plt Count 190 k/mm3 (150-375) MPV 11.7 H fl (7.4-10.4) Immature Gran % (Auto) 0.4 % (0-0.5) Neut % (Auto) 71.3 % (45.5-73.1) Lymph % (Auto) 15.4 L % (18.3-44.2) [place] % (Auto) 10.7 H % (2.6-8.5) Eos % (Auto) 1.3 % (0-4.4) Baso % (Auto) 0.9 % (0.2-1.2) Lymph # (Auto) 0.71 L K/mm3 (0.9-3.2) [place] # (Auto) 0.5 K/mm3 (0.1-0.6) Eos # (Auto) 0.1 K/mm3 (0-0.3) Baso # (Auto) 0.0 K/mm3 (0.0-0.1) Abs Immat Gran (auto) 0.02 K/mm3 (0.00-0.031) Absolute Neuts (auto) 3.3 K/mm3 (1.3-6.7) Absolute Nucleated RBC 0.0 K/mm3 (0.0-0.012) Nucleated RBC % 0.0 % (0.0-0.2) PT 14.2 Seconds (11.1-14.7) INR 1.1 APTT 36.1 SECONDS (22.3-36.8) Sodium 135 L mmol/L (137-145) Potassium 4.4 mmol/L (3.4-5.0) Chloride 95 L mmol/L (98-107) Carbon Dioxide 29 mmol/L (22-30) Anion Gap 11 mmol/L (8-16) BUN 45 H D mg/dL (9-20) Creatinine 6.90 H mg/dL (0.7-1.3) Estim Creat Clear Calc 9 ml/min Estimated GFR 8 L (59 - ) Glucose 127 H mg/dL (65-110) Calcium 9.9 mg/dL (8.4-10.2) Iron 80 ug/dL (49-181) TIBC 317 ug/dL (265-497) % Saturation 25 % (20-50) Total Bilirubin 0.4 mg/dL (0.2-1.3) AST 19 U/L (17-59) ALT 13 U/L (6-50) Alkaline Phosphatase 35 L U/L (38-126) Total Protein 6.0 L g/dL (6.3-8.2) Albumin 3.5 g/dL (3.5-5.1) Urine Color Yellow (Yellow) Urine Appearance Cloudy H (Clear) Urine pH >=9.0 H (5.0-9.0) Ur Specific Gra
[2023-10-25] MEDS: SODIUM CHLORIDE 0.9% IV 500 ML 10 ML IV CONT (15:39)
[2023-10-25 15:59] LABS: Glucose Point of Care 77 mg/dl (65-105)
[2023-10-25 16:22] LABS: Glucose Point of Care 68 mg/dl (65-105)
[2023-10-25 16:22] LABS: Glucose Point of Care 73 mg/dl (65-105)
--- NOTE | 2023-10-25 16:39 | ADMGEN ---
This patient, Sam Morrissey, was admitted to 2 Medical Room 257-01. Patient/family oriented to hospital policies and general routines including ID bracelet, bed and alarms, visiting hours, pain management, procedures, bathroom and other care routines, personal items, smoking policy, room service/diet, and visiting hours. Information on how to activate the Rapid Response Team has been discussed. Patient/Family are encouraged to report perceived risks to care and to ask questions if they do not understand what they are told or what they should do.
[2023-10-25] MEDS: cloNIDine HCL 0.1 MG TABLET PO (17:32)
[2023-10-25] MEDS: carvediloL 25 MG TABLET PO (17:32)
[2023-10-25 17:44] LABS: Basophils Percent Auto 0.9 % (0.2-1.2); Eosinophils Absolute Auto 0.1 K/mm3 (0-0.3); Eosinophils Percent Auto 1.8 % (0-4.4); Hematocrit 25.7 % (42.0-52.0); Hemoglobin 8.1 g/dL (14.0-18.0); Immature Granulocyte Absolute 0.02 K/mm3 (0.00-0.031); Immature Granulocyte Percent A 0.5 % (0-0.5); Lymphocytes Absolute Auto 1.03 K/mm3 (0.9-3.2); Lymphocytes Percent Auto 23.7 % (18.3-44.2); Mean Corpuscular HGB Conc 31.5 g/dl (32-36); Mean Corpuscular Hemoglobin 31.6 pg (26-34); Mean Corpuscular Volume 100.4 fl (80-100); Mean Platelet Volume 10.6 fl (7.4-10.4); Monocytes Absolute Auto 0.5 K/mm3 (0.1-0.6); Neutrophils Absolute Auto 2.7 K/mm3 (1.3-6.7); Neutrophils Percent Auto 61.1 % (45.5-73.1); Platelet Count Result 195 k/mm3 (150-375); Red Blood Count 2.56 M/mm3 (4.6-6.20); Red Cell Distribution Width 16.3 % (11.5-14.5); White Blood Count 4.3 K/mm3 (4.5-10.0)
[2023-10-25] MEDS: polyethylene glycoL 3350 238 GM BOTTLE PO (18:12)
[2023-10-25 18:19] LABS: Alanine Aminotransferase 13 U/L (6-50); Albumin Level 3.8 g/dL (3.5-5.1); Alkaline Phosphatase 44 U/L (38-126); Anion Gap 7 mmol/L (8-16); Aspartate Amino Transferase 17 U/L (17-59); Bilirubin,Total 0.4 mg/dL (0.2-1.3); Blood Urea Nitrogen 15 mg/dL (9-20); Calcium 9.5 mg/dL (8.4-10.2); Carbon Dioxide 35 mmol/L (22-30); Chloride 93 mmol/L (98-107); Estimated CRCL calculation 16 ml/min; Estimated Glomerular Filt Rate 16; Glucose 139 mg/dL (65-110); Potassium 3.2 mmol/L (3.4-5.0); Sodium 135 mmol/L (137-145)
[2023-10-25 18:47] LABS: Glucose Point of Care 233 mg/dl (65-105)
[2023-10-25] MEDS: INSULIN ASPART (*BKC) 100 UNITS/ML SUB-Q (18:52)
--- NOTE | 2023-10-25 19:25 | PC.NURSE ---
Patient was admitted to 257 at 1630. Upon arrival to the unit, the RN noticed the blood transfusion from earlier today had not been charted on or ended in the TAR. The patient was taken to dialysis for treatment from the ER, and the blood was completed in dialysis. The patient was then taken to GI lab for a procedure before being admitted to the floor. RN attempted to contact both ER and dialysis to find who ended the blood with no response. RN then called main lab to explain the situation and get clarification on what should be done next. Lab requested a nurse note be typed and brought down to them so that the slab lifting supervisor can follow through with appropriate departments. x ray operator notified, and oncoming nightshift RN made aware of the situation. The patient will still need a second unit of blood administered, per provider order.
[2023-10-25] MEDS: ATORVASTATIN 20 MG TABLET PO (20:36)
[2023-10-25 21:20] LABS: IFOB Positive Control Positive; Immunochemical Fecal Occult Bl Positive (N)
[2023-10-26] VITALS (10 sets, daily range): BP systolic 91–159; BP diastolic 45–57; PULSE 62–72; RESP 12–22; TEMP 36.2–36.7; O2SAT 96–100
[2023-10-26 00:51] LABS: Glucose Point of Care 83 mg/dl (65-105)
--- NOTE | 2023-10-26 03:18 | PC.NURSE ---
During assessment, this nurse noticed a wound dressing on patient's right foot/heel. Per patient, he has an ulcer and has had several skin grafts . Patient also states that the wound was recently dressed by an outpatient physician, prior to admission, and that it was healing . Patient refused to allow this nurse to unwrap bandage and assess the wound. Patient was educated about the importance of skin integrity, but still refused. Wound consult put in.
[2023-10-26 04:29] LABS: Hematocrit 26.7 % (42.0-52.0); Hemoglobin 8.5 g/dL (14.0-18.0)
[2023-10-26 06:22] LABS: Glucose Point of Care 101 mg/dl (65-105)
--- NOTE | 2023-10-26 08:15 | WPDANESPN ---
Anes - Prog Note Post-Op Date/Time: 10/26/23 08:15 Cardiovascular status: normal Respiratory status: normal Airway patency: baseline Mental status: baseline Post-Op hydration status: normal Vital Signs: Last Vital Signs Temp 36.7 C 10/26/23 06:19 Pulse 67 10/26/23 06:19 Resp 14 10/26/23 06:19 BP 125/53 L 10/26/23 06:19 Pulse Ox 99 10/26/23 06:19 O2 Del Method Room Air 10/25/23 20:00 Pain Score (VAS): 2/10 I/O: Intake & Output 10/25/23 10/26/23 10/26/23 23:59 07:59 15:59 Intake Total 700 650 Balance 700 650 Laboratory Tests 10/26/23 03:42 10/25/23 17:39 10/25/23 10/25/23 10/25/23 08:20 08:21 10:08 WBC 4.6 RBC 2.05 L Hgb 6.6 L* D Hct 21.4 L MCV 104.4 H MCH 32.2 MCHC 30.8 L RDW 15.8 H Plt Count 190 MPV 11.7 H Immature Gran % (Auto) 0.4 Neut % (Auto) 71.3 Lymph % (Auto) 15.4 L [place] % (Auto) 10.7 H Eos % (Auto) 1.3 Baso % (Auto) 0.9 Lymph # (Auto) 0.71 L [place] # (Auto) 0.5 Eos # (Auto) 0.1 Baso # (Auto) 0.0 Abs Immat Gran (auto) 0.02 Absolute Neuts (auto) 3.3 Absolute Nucleated RBC 0.0 Nucleated RBC % 0.0 PT 14.2 INR 1.1 APTT 36.1 Sodium 135 L Potassium 4.4 Chloride 95 L Carbon Dioxide 29 Anion Gap 11 BUN 45 H D Creatinine 6.90 H Estim Creat Clear Calc 9 Estimated GFR 8 L Glucose 127 H POC Capillary Glucose Calcium 9.9 Iron 80 TIBC 317 % Saturation 25 Total Bilirubin 0.4 AST 19 ALT 13 Alkaline Phosphatase 35 L Total Protein 6.0 L Albumin 3.5 Urine Color Yellow Urine Appearance Cloudy H Urine pH >=9.0 H Ur Specific [place] 1.013 Urine Protein 3+ H Urine Glucose (UA) Trace H Urine Ketones Negative Ur Blood (Man) Negative Urine Nitrate Negative Urine Bilirubin Negative Urine Urobilinogen 0.2 Leukocyte Esterase Rfl Negative Urine RBC 0-2 Urine WBC 0-5 Ur Squamous Epith Cells None seen Urine Bacteria None seen Urine Casts 0-2 Stl Occult Blood (IFOB) Hep Bs Antigen Negative Hep Bs Antibody Positive Blood Type O Positive Antibody Screen Negative Crossmatch See Detail 10/25/23 10/25/23 10/25/23 15:36 16:11 16:20 WBC RBC Hgb Hct MCV MCH MCHC RDW Plt Count MPV Immature Gran % (Auto) Neut % (Auto) Lymph % (Auto) [place] % (Auto) Eos % (Auto) Baso % (Auto) Lymph # (Auto) [place] # (Auto) Eos # (Auto) Baso # (Auto) Abs Immat Gran (auto) Absolute Neuts (auto) Absolute Nucleated RBC Nucleated RBC % PT INR APTT Sodium Potassium Chloride Carbon Dioxide Anion Gap BUN Creatinine Estim Creat Clear Calc Estimated GFR Glucose POC Capillary Glucose 77 68 73 Calcium Iron TIBC % Saturation Total Bilirubin AST ALT Alkaline Phosphatase Total Protein Albumin Urine Color Urine Appearance Urine pH Ur Specific [place] Urine Protein Urine Glucose (UA) Urine Ketones Ur Blood (Man) Urine Nitrate Urine Bilirubin Urine Urobilinogen Leukocyte Esterase Rfl Urine RBC Urine WBC Ur Squamous Epith Cells Urine Bacteria Urine Casts Stl Occult Blood (IFOB) Hep Bs Antigen Hep Bs Antibody Blood Type Antibody Screen Crossmatch 10/25/23 10/25/23 10/25/23 17:39 18:45 20:38 WBC 4.3 L RBC 2.56 L Hgb 8.1 L Hct 25.7 L MCV 100.4 H MCH 31.6 MCHC 31.5 L RDW 16.3 H Plt Count 195 MPV 10.6 H Immature Gran % (Auto) 0.5 Neut % (Auto) 61.1 Lymph % (Auto) 23.7 [place] % (Auto) 12.0 H Eos % (Auto) 1.8 Baso % (Auto) 0.9 Lymph # (Auto) 1.03 [place] # (Auto) 0.5 Eos # (Auto) 0.1 Baso # (Auto) 0.0 Abs Immat Gran (auto) 0.02 Absolute Neuts (auto) 2.7 Absolute Nucleated
[2023-10-26] MEDS: PANTOPRAZOLE SODIUM IV 40 MG VIAL IV PUSH (08:26)
--- NOTE | 2023-10-26 08:33 | PM.IMPN ---
Progress Note: A&P Assessment and Plan (1) Acute blood loss anemia: Code(s): D62 - Acute posthemorrhagic anemia Status: Acute (2) Acute GI bleeding: Code(s): K92.2 - Gastrointestinal hemorrhage, unspecified Status: Acute (3) COPD (chronic obstructive pulmonary disease): Code(s): J44.9 - Chronic obstructive pulmonary disease, unspecified Status: Chronic (4) End-stage renal disease on hemodialysis: Code(s): N18.6 - End stage renal disease; Z99.2 - Dependence on renal dialysis Status: Acute (5) CARITO (obstructive sleep apnea): Code(s): G47.33 - Obstructive sleep apnea (adult) (pediatric) Status: Acute (6) CAD in [place] artery: Code(s): I25.10 - Atherosclerotic heart disease of [place] coronary artery without angina pectoris Status: Acute (7) Essential (primary) hypertension: Code(s): I10 - Essential (primary) hypertension Status: Chronic (8) IDDM (insulin dependent diabetes mellitus): Status: Chronic Plan Acute blood loss anemia Patient has noticed black stool in possibly more days, denies abdomen pain, nausea vomiting, patient has general weakness, short of breath with exertion, lightheadedness in past few more days Hemoglobin 6.6, below the baseline 11 in November 2022 A baby aspirin, not taking [id number] NSAIDs Received 2 pack RBC in the ED Formal hemoglobin q.6 hours Follow-up stool guaiac, iron panel ferritin level Epoetin was given by senior net software developer Keep patient NPO Follow-up GI recommendations Telemetry monitoring 10/26/23 EGD shows gastritis no ulcer, mass, active bleeding Hemoglobin 8.5 hemoglobin stable, blood pressure stable Plans colonoscopy p.m. today End-stage renal disease on hemodialysis Sunday Dialysis started today when patient is receiving transfusion Follow-up with CBC BMP Correct electrolyte abnormality accordingly History of COPD Stable Shortness breath is likely secondary to profound anemia O2 therapy to keep pulse ox above 94 Start albuterol or Atrovent nebulizer p.r.n. CAD Patient denies chest pain Hold aspirin Essential hypertension Continue clonidine 0.1 mg b.i.d. p.o., carvedilol 25 mg b.i.d. p.o., losartan 100 mg daily p.o. Monitor blood pressure closely, adjust medication accordingly Insulin-dependent diabetes Continue basal insulin 10 units daily Start insulin q.6 hours p.r.n. p.o. Subjective Date/time seen: 10/26/23 08:33 Interval history: Patient underwent EGD, gastritis is found, no ulcer or active bleeding, hemoglobin stable, blood pressure stable, patient has no abdomen pain, nausea vomiting Exam Narrative: GENERAL: Pleasant, in no acute distress. Well-nourished. - EYES: EOMI. Anicteric. - HENT: Moist mucous membranes. Pale - LUNGS: Clear to auscultation bilaterally, no wheezing, rhonchi, or rales. - CARDIOVASCULAR: Regular rate and rhythm. No murmur. No JVD. - ABDOMEN: Soft, non-tender and non-distended. No palpable masses. - EXTREMITIES: Left heel pressure ulcer. Peripheral pulses 2+. Non-tender. - NEUROLOGIC: No focal neurological deficits. CN II-XII grossly intact. - PSYCHIATRIC: Awake, Alert and oriented x 3. Appropriate mood and affect. - SKIN: No rashes or lesions. Warm. - LYMPH: No cervical lymphadenopathy. Objective Data Vital Signs Vital Signs: Vital Signs - 24 hr 10/25/23 09:36 10/25/23 09:37 10/25/23 10:11 Temperature 98.5 F Pulse Rate 67 65 Respiratory Rate 25 H 25 H 13 Blood Pressure 139/75 139/56 L Pulse Oximetry 100 100 100 Oxygen Delivery 10/25/23 10:33 10/25/23 11:29 10/25/23 11:15 Temperature 97.7 F 98.4 F Pulse Rate 73 70 70 Respiratory Rate 13 16 Blood Pressure 144/57 H 132/65 130/64 Pulse Oximetry 99 Oxygen Delivery 10/25/23 12:15 10/25/23 11:45 10/25/23 12:00 Temperature Pulse Rate 68 66 65 Respiratory Rate Blood Pressure 153/63 H 140/69 153/65 H Pulse O
[2023-10-26 08:37] LABS: Glucose Point of Care 103 mg/dl (65-105)
[2023-10-26 09:02] LABS: Basophils Percent Auto 0.8 % (0.2-1.2); Eosinophils Percent Auto 1.1 % (0-4.4); Hematocrit 27.6 % (42.0-52.0); Hemoglobin 8.7 g/dL (14.0-18.0); Immature Granulocyte Absolute 0.02 K/mm3 (0.00-0.031); Immature Granulocyte Percent A 0.6 % (0-0.5); Lymphocytes Absolute Auto 0.76 K/mm3 (0.9-3.2); Lymphocytes Percent Auto 20.9 % (18.3-44.2); Mean Corpuscular HGB Conc 31.5 g/dl (32-36); Mean Corpuscular Volume 101.5 fl (80-100); Mean Platelet Volume 10.9 fl (7.4-10.4); Monocytes Absolute Auto 0.5 K/mm3 (0.1-0.6); Monocytes Percent Auto 14.6 % (2.6-8.5); Neutrophils Absolute Auto 2.3 K/mm3 (1.3-6.7); Platelet Count Result 172 k/mm3 (150-375); Red Blood Count 2.72 M/mm3 (4.6-6.20); Red Cell Distribution Width 16.5 % (11.5-14.5); White Blood Count 3.6 K/mm3 (4.5-10.0)
[2023-10-26 09:12] LABS: Anion Gap 5 mmol/L (8-16); Blood Urea Nitrogen 18 mg/dL (9-20); Carbon Dioxide 36 mmol/L (22-30); Chloride 95 mmol/L (98-107); Estimated CRCL calculation 12 ml/min; Estimated Glomerular Filt Rate 11; Glucose 103 mg/dL (65-110); Potassium 4.2 mmol/L (3.4-5.0); Sodium 136 mmol/L (137-145)
--- NOTE | 2023-10-26 11:20 | PM.PNNEP ---
Progress Note: A&P Assessment and Plan (1) End stage renal disease: Code(s): N18.6 - End stage renal disease Status: Chronic Assessment and Plan: HD tomorrow continue T/T/S outpatient dialysis schedule while hospitalized follow electrolytes, volume status, and clearance (2) Anemia: Code(s): D64.9 - Anemia, unspecified Status: Acute Assessment and Plan: noted drop in hemoglobin by outpatient labs and labs done in ER GI loss is of concern - GI recommendations noted EGD (on 10/25): gastritis but active bleeding lesions noted plans for colonoscopy today PRBC transfusion per protocol Epogen with HD follow trend of H/H (3) COPD (chronic obstructive pulmonary disease): Code(s): J44.9 - Chronic obstructive pulmonary disease, unspecified Status: Chronic Assessment and Plan: appears stable/compensated supplemental oxygen PRN nebulizers PRN continue supportive therapy (4) Essential (primary) hypertension: Code(s): I10 - Essential (primary) hypertension Status: Chronic Assessment and Plan: reasonable control at this time follow trend of hemodynamics (5) IDDM (insulin dependent diabetes mellitus): Status: Chronic Assessment and Plan: follow accu-cheks glycemic control per hospitalists Will continue to follow. Subjective Date/time seen: 10/26/23 11:20 Interval history: Follow-up for end stage renal disease on hemodialysis. Tolerated hemodialysis treatment yesterday morning along with subsequent EGD in the afternoon; noted plans for colonoscopy later today (tolerated bowel prep yesterday); H/H relatively stable following PRBC transfusion; no apparent distress noted; no other issues/events overnight or earlier this morning. Exam Narrative: General: elderly but WD/WN male in NAD Heart: normal S1 and S2; no rub Lungs: clear to auscultation Abdomen: soft, nontender, nondistended, positive bowel sounds Extremities: no cyanosis or clubbing; no edema Skin: warm and dry Objective Data Vital Signs Vital Signs: Vital Signs Temp Pulse Resp BP Pulse Ox O2 Del Method 10/26/23 11:15 97.1 F L 66 18 150/57 H 99 Room Air 10/26/23 08:35 Room Air 10/26/23 06:19 98.0 F 67 14 125/53 L 99 10/26/23 02:04 97.3 F L 67 12 113/53 L 97 10/26/23 01:28 97.8 F 72 16 103/53 L 98 10/26/23 00:28 97.6 F 63 16 116/47 L 98 10/25/23 23:28 97.7 F 64 12 130/58 L 98 10/25/23 20:00 Room Air 10/25/23 23:12 97.9 F 60 12 106/38 L 99 10/25/23 22:53 97.9 F 60 12 106/38 L 99 10/25/23 19:30 97.6 F 100 16 122/51 L 94 10/25/23 17:55 Room Air 10/25/23 17:32 80 10/25/23 17:30 80 152/53 H 99 Intake/Output Intake/Output: Intake & Output 10/23/23 10/24/23 10/25/23 10/26/23 23:59 23:59 23:59 23:59 Intake Total 700 650 Output Total 2000 Balance -1300 650 Meds/Results Medications: Active Medications Generic Name Dose Route Start Last Admin Trade Name Freq PRN Reason Stop Dose Admin Acetaminophen 650 mg 10/25/23 09:25 Acetaminophen 325 Mg Tablet PO Q4H PRN Mild Pain (1-3) or Fever Hydrocodone Bitart/Acetaminophen 1 tab 10/25/23 09:25 Hydrocodone/Acetaminophen (*Crx) 5-325 Mg Tablet PO Q4H PRN Pain Rated 4-6 Albuterol 2.5 mg 10/25/23 12:07 Albuterol Sulfate Neb 2.5 Mg/3 Ml Inh INHALATION Q4HRT PRN Shortness Of Breath Or Wheezing Atorvastatin Calcium 20 mg 10/25/23 21:00 10/25/23 20:36 Atorvastatin 20 Mg Tablet PO 20 mg QHS DAVID Administration Carvedilol 25 mg 10/25/23 17:00 10/26/23 10:19 Carvedilol 25 Mg Tablet PO Not Given BID DAVID Clonidine HCl 0.1 mg 10/25/23 17:00 10/26/23 10:20 Clonidine Hcl 0.1 Mg Tablet PO Not Given BID DAVID Dextrose 12.5 gm 10/25/23 11:59 Dextrose 50% 25 Gm/50 Ml Syringe IV PUSH PRN PRN
[2023-10-26 11:50] LABS: Glucose Point of Care 91 mg/dl (65-105)
[2023-10-26] MEDS: SODIUM CHLORIDE 0.9% IV 500 ML 10 ML IV CONT (11:54)
--- NOTE | 2023-10-26 12:42 | WPDANESEPPF ---
Anes - Initial Pre Proc Eval Procedure: Operation Date: 10/25/23 15:30 Proposed Procedures p Esophagogastroduodenoscopy - Elfego Moreno MD Operation Date: 10/26/23 13:00 Proposed Procedures p Colonoscopy - Elfego Moreno MD Date/Time: 10/26/23 12:42 Surgeon: Venkata Turpin MD Pre Op Diagnosis: gi bleeding,anemia,esrd Patient Data Age: 78 Gender: M Height: 1.7 m Weight: 86 kg Last Vital Signs Temp 97.1 F L 10/26/23 11:55 Pulse 66 10/26/23 11:55 Resp 18 10/26/23 11:55 BP 150/57 H 10/26/23 11:55 Pulse Ox 99 10/26/23 11:55 O2 Del Method Room Air 10/26/23 11:55 Allergies Allergy/AdvReac Type Severity Reaction Status Date / Time No Known Allergies Allergy Verified 10/26/23 11:50 Home Medications Medication Instructions Recorded Confirmed Type aspirin 81 mg tablet,delayed 81 mg PO DAILY 10/31/21 10/25/23 History release atorvastatin 20 mg tablet 20 mg PO QHS 10/31/21 10/25/23 History carvedilol 25 mg tablet 25 mg PO BID 10/31/21 10/25/23 History clonidine HCl 0.1 mg tablet 0.1 mg PO BID 10/31/21 10/25/23 History dulaglutide 1.5 mg/0.5 mL 1.5 mg subcut WEEKLY 10/31/21 10/25/23 History subcutaneous pen injector (Trulicity) insulin lispro 100 unit/mL 4 unit subcut .TIDAC 10/31/21 10/25/23 History subcutaneous pen loratadine 10 mg tablet (Claritin) 10 mg PO DAILY 10/31/21 10/25/23 History losartan 100 mg tablet 100 mg PO DAILY 10/31/21 10/25/23 History sildenafil 100 mg tablet (Viagra) 100 mg PO PRN PRN impotence 10/31/21 10/25/23 History insulin glargine 100 unit/mL (3 10 unit subcut DAILY 11/01/22 10/25/23 History mL) subcutaneous pen (Lantus Solostar U-100 Insulin) amlodipine 10 mg tablet mg 10/25/23 History finasteride 5 mg tablet 5 mg 10/25/23 History sevelamer HCl 800 mg tablet 800 mg PO 10/25/23 History Laboratory Tests 10/25/23 10/25/23 10/25/23 08:21 10:08 15:36 WBC RBC Hgb Hct MCV MCH MCHC RDW Plt Count MPV Immature Gran % (Auto) Neut % (Auto) Lymph % (Auto) [place] % (Auto) Eos % (Auto) Baso % (Auto) Lymph # (Auto) [place] # (Auto) Eos # (Auto) Baso # (Auto) Abs Immat Gran (auto) Absolute Neuts (auto) Absolute Nucleated RBC Nucleated RBC % Sodium Potassium Chloride Carbon Dioxide Anion Gap BUN Creatinine Estim Creat Clear Calc Estimated GFR Glucose POC Capillary Glucose 77 mg/dl (65-105) Calcium % Saturation 25 % (20-50) Total Bilirubin AST ALT Alkaline Phosphatase Total Protein Albumin Stl Occult Blood (IFOB) Blood Type O Positive Antibody Screen Negative Crossmatch See Detail 10/25/23 10/25/23 10/25/23 16:11 16:20 17:39 WBC 4.3 L K/mm3 (4.5-10.0) RBC 2.56 L M/mm3 (4.6-6.20) Hgb 8.1 L g/dL (14.0-18.0) Hct 25.7 L % (42.0-52.0) MCV 100.4 H fl (80-100) MCH 31.6 pg (26-34) MCHC 31.5 L g/dl (32-36) RDW 16.3 H % (11.5-14.5) Plt Count 195 k/mm3 (150-375) MPV 10.6 H fl (7.4-10.4) Immature Gran % (Auto) 0.5 % (0-0.5) Neut % (Auto) 61.1 % (45.5-73.1) Lymph % (Auto) 23.7 % (18.3-44.2) [place] % (Auto) 12.0 H % (2.6-8.5) Eos % (Auto) 1.8 % (0-4.4) Baso % (Auto) 0.9 % (0.2-1.2) Lymph # (Auto) 1.03 K/mm3 (0.9-3.2) [place] # (Auto) 0.5 K/mm3 (0.1-0.6) Eos # (Auto)
[2023-10-26] MEDS: SIMETHICONE ORAL SUSPENSION 20 MG/0.3 ML 30 ML BOTTLE 0.6 ML PO (13:27)
[2023-10-26 13:50] LABS: Glucose Point of Care 86 mg/dl (65-105)
[2023-10-26] MEDS: cloNIDine HCL 0.1 MG TABLET PO (16:54)
[2023-10-26] MEDS: carvediloL 25 MG TABLET PO (16:54)
[2023-10-26 17:17] LABS: Glucose Point of Care 165 mg/dl (65-105)
[2023-10-26] MEDS: ATORVASTATIN 20 MG TABLET PO (19:59)
[2023-10-26 20:31] LABS: Glucose Point of Care 155 mg/dl (65-105)
[2023-10-27] VITALS (15 sets, daily range): BP systolic 127–175; BP diastolic 51–82; PULSE 59–79; RESP 16; TEMP 36.2–37.2; O2SAT 97
[2023-10-27 05:58] LABS: Anion Gap 8 mmol/L (8-16); Blood Urea Nitrogen 28 mg/dL (9-20); Calcium 10.1 mg/dL (8.4-10.2); Carbon Dioxide 32 mmol/L (22-30); Chloride 94 mmol/L (98-107); Estimated CRCL calculation 9 ml/min; Estimated Glomerular Filt Rate 8; Glucose 99 mg/dL (65-110); Potassium 4.7 mmol/L (3.4-5.0); Sodium 134 mmol/L (137-145)
[2023-10-27 06:02] LABS: Basophils Absolute Auto 0.1 K/mm3 (0.0-0.1); Basophils Percent Auto 1.2 % (0.2-1.2); Eosinophils Absolute Auto 0.1 K/mm3 (0-0.3); Eosinophils Percent Auto 2.5 % (0-4.4); Hematocrit 28.8 % (42.0-52.0); Hemoglobin 8.9 g/dL (14.0-18.0); Immature Granulocyte Absolute 0.02 K/mm3 (0.00-0.031); Immature Granulocyte Percent A 0.4 % (0-0.5); Lymphocytes Absolute Auto 1.17 K/mm3 (0.9-3.2); Lymphocytes Percent Auto 24.3 % (18.3-44.2); Mean Corpuscular HGB Conc 30.9 g/dl (32-36); Mean Corpuscular Hemoglobin 31.6 pg (26-34); Mean Corpuscular Volume 102.1 fl (80-100); Mean Platelet Volume 11.4 fl (7.4-10.4); Monocytes Absolute Auto 0.7 K/mm3 (0.1-0.6); Monocytes Percent Auto 14.7 % (2.6-8.5); Neutrophils Absolute Auto 2.7 K/mm3 (1.3-6.7); Neutrophils Percent Auto 56.9 % (45.5-73.1); Platelet Count Result 182 k/mm3 (150-375); Red Blood Count 2.82 M/mm3 (4.6-6.20); Red Cell Distribution Width 15.9 % (11.5-14.5); White Blood Count 4.8 K/mm3 (4.5-10.0)
--- NOTE | 2023-10-27 08:00 | WPDANESPN ---
Anes - Prog Note Post-Op Date/Time: 10/27/23 08:00 Cardiovascular status: normal Respiratory status: normal Airway patency: baseline Mental status: baseline Post-Op hydration status: normal Vital Signs: Last Vital Signs Temp 36.7 C 10/27/23 03:26 Pulse 60 10/27/23 03:26 Resp 16 10/27/23 03:26 BP 127/51 L 10/27/23 03:26 Pulse Ox 97 10/27/23 03:26 O2 Del Method Room Air 10/26/23 20:00 Pain Score (VAS): Patient out of room, unable to assess I/O: Intake & Output 10/26/23 10/27/23 10/27/23 23:59 07:59 15:59 Intake Total 1440 200 Balance 1440 200 Laboratory Tests 10/27/23 05:27 10/27/23 05:27 10/25/23 10/26/23 10/26/23 08:21 08:32 08:53 WBC 3.6 L RBC 2.72 L Hgb 8.7 L Hct 27.6 L MCV 101.5 H MCH 32.0 MCHC 31.5 L RDW 16.5 H Plt Count 172 MPV 10.9 H Immature Gran % (Auto) 0.6 H Neut % (Auto) 62.0 Lymph % (Auto) 20.9 Lawrence % (Auto) 14.6 H Eos % (Auto) 1.1 Baso % (Auto) 0.8 Lymph # (Auto) 0.76 L [place] # (Auto) 0.5 Eos # (Auto) 0.0 Baso # (Auto) 0.0 Abs Immat Gran (auto) 0.02 Absolute Neuts (auto) 2.3 Absolute Nucleated RBC 0.0 Nucleated RBC % 0.0 Sodium 136 L Potassium 4.2 Chloride 95 L Carbon Dioxide 36 H Anion Gap 5 L BUN 18 Creatinine 5.10 H Estim Creat Clear Calc 12 Estimated GFR 11 L Glucose 103 POC Capillary Glucose 103 Calcium 10.0 Crossmatch See Detail 10/26/23 10/26/23 10/26/23 11:48 13:48 17:15 WBC RBC Hgb Hct MCV MCH MCHC RDW Plt Count MPV Immature Gran % (Auto) Neut % (Auto) Lymph % (Auto) [place] % (Auto) Eos % (Auto) Baso % (Auto) Lymph # (Auto) [place] # (Auto) Eos # (Auto) Baso # (Auto) Abs Immat Gran (auto) Absolute Neuts (auto) Absolute Nucleated RBC Nucleated RBC % Sodium Potassium Chloride Carbon Dioxide Anion Gap BUN Creatinine Estim Creat Clear Calc Estimated GFR Glucose POC Capillary Glucose 91 86 165 H Calcium Crossmatch 10/26/23 10/27/23 20:26 05:27 WBC 4.8 RBC 2.82 L Hgb 8.9 L Hct 28.8 L MCV 102.1 H MCH 31.6 MCHC 30.9 L RDW 15.9 H Plt Count 182 MPV 11.4 H Immature Gran % (Auto) 0.4 Neut % (Auto) 56.9 Lymph % (Auto) 24.3 [place] % (Auto) 14.7 H Eos % (Auto) 2.5 Baso % (Auto) 1.2 Lymph # (Auto) 1.17 [place] # (Auto) 0.7 H Eos # (Auto) 0.1 Baso # (Auto) 0.1 Abs Immat Gran (auto) 0.02 Absolute Neuts (auto) 2.7 Absolute Nucleated RBC 0.0 Nucleated RBC % 0.0 Sodium 134 L Potassium 4.7 Chloride 94 L Carbon Dioxide 32 H Anion Gap 8 BUN 28 H D Creatinine 6.80 H Estim Creat Clear Calc 9 Estimated GFR 8 L Glucose 99 POC Capillary Glucose 155 H Calcium 10.1 Crossmatch Post-procedural complaints: none Patient Feedback: Patient satisfied with anesthetic care.
[2023-10-27 09:13] LABS: Glucose Point of Care 93 mg/dl (65-105)
[2023-10-27] MEDS: EPOETIN ALFA-EPBX 10,000 UNITS/ML VIAL 10000 UNITS IV PUSH (10:09)
[2023-10-27] MEDS: SODIUM CHLORIDE 0.9% IV 1,000 ML 999 ML IV CONT (10:09)
--- NOTE | 2023-10-27 10:25 | P.PNNP_ITS ---
Progress Note: A&P Assessment and Plan (1) End stage renal disease: Code(s): N18.6 - End stage renal disease Status: Chronic Assessment and Plan: * HD today * continue T/T/S outpatient dialysis schedule while hospitalized * follow electrolytes, volume status, and clearance (2) Anemia: Code(s): D64.9 - Anemia, unspecified Status: Acute Assessment and Plan: * noted drop in hemoglobin by outpatient labs and labs done in ER * GI loss is of concern - GI recommendations noted * EGD (on 10/25): gastritis but active bleeding lesions * colonoscopy (on 10/26): internal hemorrhoids, no bleeding lesions * PRBC transfusion per protocol * Epogen with HD * follow trend of H/H (3) COPD (chronic obstructive pulmonary disease): Code(s): J44.9 - Chronic obstructive pulmonary disease, unspecified Status: Chronic Assessment and Plan: * appears stable/compensated * supplemental oxygen PRN * nebulizers PRN * continue supportive therapy (4) Essential (primary) hypertension: Code(s): I10 - Essential (primary) hypertension Status: Chronic Assessment and Plan: * reasonable control at this time * follow trend of hemodynamics (5) IDDM (insulin dependent diabetes mellitus): Status: Chronic Assessment and Plan: * follow accu-cheks * glycemic control per hospitalists Will continue to follow. Subjective Date/time seen: 10/27/23 10:25 Interval history: Follow-up for end stage renal disease on hemodialysis. Tolerating hemodialysis treatment at the time of my visit (seen on HD at 10:15AM); tolerated colonoscopy yesterday afternoon without any issue or problems; H/H remains stable at this time; no apprarent distress noted currently. Exam Narrative: General: elderly but WD/WN male in NAD Heart: normal S1 and S2; no rub Lungs: clear to auscultation Abdomen: soft, nontender, nondistended, positive bowel sounds Extremities: no cyanosis or clubbing; no edema Skin: warm and intact Objective Data Vital Signs Vital Signs: Vital Signs Temp Pulse Resp BP Pulse Ox O2 Del Method 10/27/23 10:10 65 149/67 H 10/27/23 09:50 59 L 148/62 H 10/27/23 09:30 70 169/82 H 10/27/23 09:10 60 171/80 H 10/27/23 08:50 60 175/79 H 10/27/23 08:30 63 164/78 H 10/27/23 08:15 61 148/69 H 10/27/23 07:52 66 161/63 H 10/27/23 07:40 97.5 F L 62 16 167/64 H 10/27/23 08:00 Room Air 10/27/23 03:26 98.0 F 60 16 127/51 L 97 10/26/23 20:00 Room Air 10/26/23 19:57 98.1 F 63 15 91/54 L 100 Intake/Output Intake/Output: Intake & Output 10/24/23 10/25/23 10/26/23 10/27/23 23:59 23:59 23:59 23:59 Intake Total 1050 2090 200 Output Total 2000 Balance -950 2090 200 Meds/Results Medications: Active Medications Generic Name Dose Route Start Last Admin Trade Name Freq PRN Reason Stop Dose Admin Acetaminophen 650 mg 10/25/23 09:25 Acetaminophen 325 Mg Tablet PO Q4H PRN Mild Pain (1-3) or Fever Hydrocodone Bitart/Acetaminophen 1 tab
--- NOTE | 2023-10-27 10:25 | PM.PNNEP ---
Progress Note: A&P Assessment and Plan (1) End stage renal disease: Code(s): N18.6 - End stage renal disease Status: Chronic Assessment and Plan: HD today continue T/T/S outpatient dialysis schedule while hospitalized follow electrolytes, volume status, and clearance (2) Anemia: Code(s): D64.9 - Anemia, unspecified Status: Acute Assessment and Plan: noted drop in hemoglobin by outpatient labs and labs done in ER GI loss is of concern - GI recommendations noted EGD (on 10/25): gastritis but active bleeding lesions colonoscopy (on 10/26): internal hemorrhoids, no bleeding lesions PRBC transfusion per protocol Epogen with HD follow trend of H/H (3) COPD (chronic obstructive pulmonary disease): Code(s): J44.9 - Chronic obstructive pulmonary disease, unspecified Status: Chronic Assessment and Plan: appears stable/compensated supplemental oxygen PRN nebulizers PRN continue supportive therapy (4) Essential (primary) hypertension: Code(s): I10 - Essential (primary) hypertension Status: Chronic Assessment and Plan: reasonable control at this time follow trend of hemodynamics (5) IDDM (insulin dependent diabetes mellitus): Status: Chronic Assessment and Plan: follow accu-cheks glycemic control per hospitalists Will continue to follow. Subjective Date/time seen: 10/27/23 10:25 Interval history: Follow-up for end stage renal disease on hemodialysis. Tolerating hemodialysis treatment at the time of my visit (seen on HD at 10:15AM); tolerated colonoscopy yesterday afternoon without any issue or problems; H/H remains stable at this time; no apprarent distress noted currently. Exam Narrative: General: elderly but WD/WN male in NAD Heart: normal S1 and S2; no rub Lungs: clear to auscultation Abdomen: soft, nontender, nondistended, positive bowel sounds Extremities: no cyanosis or clubbing; no edema Skin: warm and intact Objective Data Vital Signs Vital Signs: Vital Signs Temp Pulse Resp BP Pulse Ox O2 Del Method 10/27/23 10:10 65 149/67 H 10/27/23 09:50 59 L 148/62 H 10/27/23 09:30 70 169/82 H 10/27/23 09:10 60 171/80 H 10/27/23 08:50 60 175/79 H 10/27/23 08:30 63 164/78 H 10/27/23 08:15 61 148/69 H 10/27/23 07:52 66 161/63 H 10/27/23 07:40 97.5 F L 62 16 167/64 H 10/27/23 08:00 Room Air 10/27/23 03:26 98.0 F 60 16 127/51 L 97 10/26/23 20:00 Room Air 10/26/23 19:57 98.1 F 63 15 91/54 L 100 Intake/Output Intake/Output: Intake & Output 10/24/23 10/25/23 10/26/23 10/27/23 23:59 23:59 23:59 23:59 Intake Total 1050 2090 200 Output Total 1999 Balance -950 2090 200 Meds/Results Medications: Active Medications Generic Name Dose Route Start Last Admin Trade Name Freq PRN Reason Stop Dose Admin Acetaminophen 650 mg 10/25/23 09:25 Acetaminophen 325 Mg Tablet PO Q4H PRN Mild Pain (1-3) or Fever Hydrocodone Bitart/Acetaminophen 1 tab 10/25/23 09:25 Hydrocodone/Acetaminophen (*Crx) 5-325 Mg Tablet PO Q4H PRN Pain Rated 4-6 Albuterol 2.5 mg 10/25/23 12:07 Albuterol Sulfate Neb 2.5 Mg/3 Ml Inh INHALATION Q4HRT PRN Shortness Of Breath Or Wheezing Atorvastatin Calcium 20 mg 10/25/23 21:00 10/26/23 19:59 Atorvastatin 20 Mg Tablet PO 20 mg QHS DAVID Administration Carvedilol 25 mg 10/25/23 17:00 10/26/23 16:54 Carvedilol 25 Mg Tablet PO 25 mg BID DAVID Administration Clonidine HCl 0.1 mg 10/25/23 17:00 10/26/23 16:54 Clonidine Hcl 0.1 Mg Tablet PO 0.1 mg BID DAVID Administration Dextrose 12.5 gm 10/25/23 11:59 Dextrose 50% 25 Gm/50 Ml Syringe IV PUSH PRN PRN Hypoglycemia Protocol Epoetin David-epbx 10,000 units 10/27/23 20:30 Epoetin David-Epbx 10,000 Units/Ml Vial IV PUSH 01
[2023-10-27 11:16] LABS: Folic Acid 6.3 ng/mL (2.76->20)
[2023-10-27 11:35] LABS: Glucose Point of Care 128 mg/dl (65-105)
[2023-10-27] MEDS: LORATADINE 10 MG TABLET PO (11:53)
[2023-10-27] MEDS: LOSARTAN POTASSIUM 100 MG TABLET PO (11:53)
[2023-10-27] MEDS: PANTOPRAZOLE SODIUM IV 40 MG VIAL IV PUSH (11:53)
--- NOTE | 2023-10-27 12:50 | PM.DS ---
DS: Admitting Diagnosis Discharge Date 10/27/23 Admitting Diagnosis Low hemoglobin DS: Discharge Diagnosis Discharge Diagnosis (1) Acute blood loss anemia: Code(s): D62 - Acute posthemorrhagic anemia Status: Acute (2) Acute GI bleeding: Code(s): K92.2 - Gastrointestinal hemorrhage, unspecified Status: Acute (3) COPD (chronic obstructive pulmonary disease): Code(s): J44.9 - Chronic obstructive pulmonary disease, unspecified Status: Chronic (4) End-stage renal disease on hemodialysis: Code(s): N18.6 - End stage renal disease; Z99.2 - Dependence on renal dialysis Status: Acute (5) CARITO (obstructive sleep apnea): Code(s): G47.33 - Obstructive sleep apnea (adult) (pediatric) Status: Acute (6) CAD in [place] artery: Code(s): I25.10 - Atherosclerotic heart disease of [place] coronary artery without angina pectoris Status: Acute (7) Essential (primary) hypertension: Code(s): I10 - Essential (primary) hypertension Status: Chronic (8) IDDM (insulin dependent diabetes mellitus): Status: Chronic (9) Gastritis: Code(s): K29.70 - Gastritis, unspecified, without bleeding Status: Acute (10) Internal hemorrhoid, bleeding: Code(s): K64.8 - Other hemorrhoids Status: Acute DS: Summary Hospital Course Reason for hospitalization: 78yo male with DM, ESRD and CARITO here for low hemopglobin. Please see H&P for details. Hospital Course: In the ED, patient had Hemoccult-positive stool. Hemoglobin was 6.6. Patient has noticed black stool in possibly more days and was symptomatic. Baseline hemoglobin of 11 in November 2022. Patient takes a baby aspirin but denies NSAID use. He received 2 units of PRBCs. EPO was ordered by Nephrology. Hemoglobin climbed to the 8 range and they remained stable the next 2 days. GI was consulted. EGD showed gastritis but no ulcers, masses or active bleeding. Biopsies were taken but pathology pending. Patient had colonoscopy which showed multiple large size internal hemorrhoid seen in the rectum and a large network of internal hemorrhoids which are likely the source of the recent brisk bleeding. Nephrology was consulted. Patient continued his dialysis per his routine schedule. A majority of his home medications were continued. Patient has been up ambulating with his cane. He had dialysis earlier today. He feels ready for discharge. Patient overall did well and was able to be discharged home on 10/27/2023. Status at Discharge Cognitive/behavioral status at discharge: stable Time Spent with Patient Time attestation: Total time spent providing and/or coordinating discharge services: 35 minutes Time spent: Greater than 30 minutes Exam Narrative: AF 97.2 159/69 69 16 97% ra Gen - NARD Chest - CTA bilaterally, nml RR CV - RRR S1/S2 Abd - Soft, NT/ND, Positive BS Ext - No pedal edema. Thrill and bruit in the left UE fistula Psych - Nml mood and affect Skin - Warm and dry DS: Data Data Completed and Pending Pending studies at discharge: Pending at discharge 10/25/23 15:58 Surgical [PTH] Routine Labs on day of discharge: Labs from last 24 hours 10/27/23 10/27/23 10/27/23 11:29 09:08 05:27 WBC 4.8 RBC 2.82 L Hgb 8.9 L Hct 28.8 L MCV 102.1 H MCH 31.6 MCHC 30.9 L RDW 15.9 H Plt Count 182 MPV 11.4 H Immature Gran % (Auto) 0.4 Neut % (Auto) 56.9 Lymph % (Auto) 24.3 Casey % (Auto) 14.7 H Eos % (Auto) 2.5 Baso % (Auto) 1.2 Lymph # (Auto) 1.17 Casey # (Auto) 0.7 H Eos # (Auto) 0.1 Baso # (Auto) 0.1 Abs Immat Gran (auto) 0.02 Absolute Neuts (auto) 2.7 Absolute Nucleated RBC 0.0 Nucleated RBC % 0.0 Sodium 134 L Potassium 4.7 Chloride 94 L Carbon Dioxide 32 H Anion Gap 8 BUN 28 H D Creatinine 6.80 H Estim Creat Clear Calc 9 Estimated GFR
--- NOTE | 2023-10-31 10:37 | PC.NURSE ---
Small bowel biopsy shows benign duodenal mucosa. No evidence of duodenitis or celiac disease. Dr. Wahl aware of findings.
== END 2023-10-27 13:54 | disposition home or self-care (01) | DRG 811 ==
LOC: ANHED 08:12 → ANH3MEDSUR 10:36 → ANH2MED 16:33
PROVIDERS: Internal Medicine Gastroenterology; Internal Medicine Nephrology; Admitting Provider Hospitalist; Emergency Provider Emergency Medicine; PCP Family Medicine; Visit Provider Internal Medicine
PROC: 0DJ08ZZ Inspection of Upper Intestinal Tract, Via Natural or Artificial Opening Endoscopic (ICD-10-PCS; CPT 43235; principal; 2023-10-25 15:30)
PROC: 0DJD8ZZ Inspection of Lower Intestinal Tract, Via Natural or Artificial Opening Endoscopic (ICD-10-PCS; CPT 45378; principal; 2023-10-26 13:00)
DX: D62 Acute posthemorrhagic anemia (principal); N18.6 End stage renal disease; K92.2 Gastrointestinal hemorrhage, unspecified; I12.0 Hypertensive chronic kidney disease with stage 5 chronic kidney disease or end stage renal disease; K92.1 Melena; K44.9 Diaphragmatic hernia without obstruction or gangrene; K64.8 Other hemorrhoids; D63.1 Anemia in chronic kidney disease; E55.9 Vitamin D deficiency, unspecified; E78.5 Hyperlipidemia, unspecified; E11.22 Type 2 diabetes mellitus with diabetic chronic kidney disease; G47.33 Obstructive sleep apnea (adult) (pediatric); I25.10 Atherosclerotic heart disease of native coronary artery without angina pectoris; J44.9 Chronic obstructive pulmonary disease, unspecified; Z79.4 Long term (current) use of insulin; Z90.49 Acquired absence of other specified parts of digestive tract; Z95.1 Presence of aortocoronary bypass graft; Z87.891 Personal history of nicotine dependence; Z99.2 Dependence on renal dialysis; Z79.82 Long term (current) use of aspirin
CPT/HCPCS: 36415; 36430; 71046; 80048; 80053; 81001; 82274; 82607; 82746; 82948; 83540; 83550; 85014; 85018; 85025; 85610; 85730; 86706; 86850; 86900; 86901; 86920; 87081; 87340; 88305; 93005; 96361; 96374; 96375; 99285; A9270; C9113; G0257; G0378; J1815; J2001; J2704; J7030; J7040; J7050; P9016; Q5105

== ENCOUNTER 2023-11-09 07:53 | Outpatient (CLI) | payer MEDICARE, OTHER, SELFPAY ==
[2023-11-09 12:07] LABS: Basophils Absolute Auto 0.1 K/mm3 (0.0-0.1); Eosinophils Absolute Auto 0.1 K/mm3 (0-0.3); Eosinophils Percent Auto 2.5 % (0-4.4); Hematocrit 36.2 % (42.0-52.0); Hemoglobin 10.9 g/dL (14.0-18.0); Immature Granulocyte Absolute 0.01 K/mm3 (0.00-0.031); Immature Granulocyte Percent A 0.2 % (0-0.5); Lymphocytes Absolute Auto 0.95 K/mm3 (0.9-3.2); Lymphocytes Percent Auto 18.3 % (18.3-44.2); Mean Corpuscular HGB Conc 30.1 g/dl (32-36); Mean Corpuscular Hemoglobin 31.3 pg (26-34); Mean Platelet Volume 11.1 fl (7.4-10.4); Monocytes Absolute Auto 0.7 K/mm3 (0.1-0.6); Monocytes Percent Auto 13.3 % (2.6-8.5); Neutrophils Absolute Auto 3.4 K/mm3 (1.3-6.7); Neutrophils Percent Auto 64.7 % (45.5-73.1); Platelet Count Result 201 k/mm3 (150-375); Red Blood Count 3.48 M/mm3 (4.6-6.20); Red Cell Distribution Width 14.6 % (11.5-14.5); White Blood Count 5.2 K/mm3 (4.5-10.0)
[2023-11-09 12:17] LABS: Alanine Aminotransferase 12 U/L (6-50); Albumin Level 3.8 g/dL (3.5-5.1); Alkaline Phosphatase 58 U/L (38-126); Anion Gap 10 mmol/L (8-16); Aspartate Amino Transferase 23 U/L (17-59); Bilirubin,Total 0.5 mg/dL (0.2-1.3); Blood Urea Nitrogen 27 mg/dL (9-20); Calcium 10.5 mg/dL (8.4-10.2); Carbon Dioxide 32 mmol/L (22-30); Chloride 99 mmol/L (98-107); Cholesterol 116 mg/dL (0-200); Estimated Glomerular Filt Rate 10; Glucose 109 mg/dL (65-110); HDL Direct 53 mg/dL; Potassium 4.9 mmol/L (3.4-5.0); Sodium 141 mmol/L (137-145); Triglycerides 62 mg/dL (<150)
[2023-11-09 12:28] LABS: LDL Cholesterol Direct 50 mg/dL
[2023-11-09 12:37] LABS: Hemoglobin A1C 4.6 % (<5.7)
[2023-11-09 12:44] LABS: Vitamin D 25 Hydroxy 31.9 ng/mL
[2023-11-09 12:45] LABS: Prostate Specific Antigen 1.2 ng/mL (< OR = 4.0)
== END 2023-11-09 07:54 | disposition home or self-care (01) ==
PROVIDERS: PCP Family Medicine; Visit Provider Family Medicine
DX: E78.5 Hyperlipidemia, unspecified (principal); I10 Essential (primary) hypertension; J44.9 Chronic obstructive pulmonary disease, unspecified; E55.9 Vitamin D deficiency, unspecified; E53.8 Deficiency of other specified B group vitamins; E11.9 Type 2 diabetes mellitus without complications; Z12.5 Encounter for screening for malignant neoplasm of prostate
CPT/HCPCS: 36415; 80053; 80061; 82306; 82607; 83036; 84153; 84443; 85025; G0103

== ENCOUNTER 2023-12-11 10:53 | Inpatient (IN) | payer MEDICARE, OTHER, SELFPAY ==
[2023-12-11] VITALS (8 sets, daily range): BP systolic 90–162; BP diastolic 47–88; PULSE 71–78; RESP 16–23; TEMP 36.2–36.6; O2SAT 95–100
--- NOTE | ~2023-12-11 | NM_ITS ---
EXAMINATION: NM GI bleeding DATE: 12/11/2023 16:16 INDICATION: Hematochezia. TECHNIQUE: 23.75 mCi Tc 99m in vitro labeled red cells was administered intravenously. Scintigraphic images of the abdomen were obtained for one hour. COMPARISON: None. FINDINGS: No pattern of abnormal activity is seen in the abdomen or pelvis to suggest gastrointestina l hemorrhage. IMPRESSION: 1. No evidence of active gastrointestinal hemorrhage. Reviewed, dictated and finalized at location E. [place] [employer]
--- NOTE | 2023-12-11 12:09 | ED.GIBLEED ---
HPI - GI Bleed General Chief complaint: GI Bleed Stated complaint: rectal bleeding Time Seen by Provider: 12/11/23 12:06 Source: patient and family ( Brother) Limitations: no limitations History of Present Illness HPI Narrative: this is a 78-year-old male with PMH triple bypass and ESRD on HD //Sun presents concern for bright red blood in stool. He states he has had 3 episodes of this but brother states it has been going on more than this. Patient was recently admitted 4-6 weeks ago for the same issue and underwent colonoscopy at that time. He was told he had a few emergency but otherwise no active bleeding or issues. He does state that he required 2 units of blood as transfusion. He did undergo lab testing this morning and was told his hemoglobin was 8.4 this morning. He is not on any anticoagulation other than 81 mg aspirin. Prior to these issues beginning 2 months ago no prior issues and had not seen a GI specialist previously. He is without any abdominal pain. He underwent dialysis this morning as well as his other previously prescribed appointments. No sessions have been terminated early recently. Related Data Home Medications Medication Instructions Recorded Confirmed aspirin 81 mg tablet,delayed 81 mg PO DAILY 10/31/21 12/11/23 release atorvastatin 20 mg tablet 20 mg PO QHS 10/31/21 12/11/23 carvedilol 25 mg tablet 25 mg PO BID 10/31/21 12/11/23 dulaglutide 1.5 mg/0.5 mL 1.5 mg subcut WEEKLY 10/31/21 12/11/23 subcutaneous pen injector (Trulicity) insulin lispro 100 unit/mL 4 unit subcut .TIDAC 10/31/21 12/11/23 subcutaneous pen loratadine 10 mg tablet (Claritin) 10 mg PO DAILY 10/31/21 12/11/23 losartan 100 mg tablet 100 mg PO DAILY 10/31/21 12/11/23 sildenafil 100 mg tablet (Viagra) 100 mg PO PRN PRN impotence 10/31/21 12/11/23 amlodipine 10 mg tablet 10 mg PO DAILY 11/07/23 12/11/23 finasteride 5 mg tablet 5 mg PO DAILY 11/07/23 12/11/23 insulin glargine 100 unit/mL (3 6 unit subcut DAILY 11/07/23 12/11/23 mL) subcutaneous pen (Lantus Solostar U-100 Insulin) sevelamer HCl 800 mg tablet 3,200 mg PO TID 11/07/23 12/11/23 tamsulosin 0.4 mg capsule 0.4 mg PO QHS 11/07/23 12/11/23 Allergies Allergy/AdvReac Type Severity Reaction Status Date / Time No Known Allergies Allergy Verified 11/07/23 08:06 [facility] Past Medical History Medical History (Updated 12/12/23 @ 01:05 by Karli Grant MD) Anemia Benign prostatic hyperplasia Chronic obstructive pulmonary disease Coronary artery disease Dyslipidemia End-stage renal disease on hemodialysis Environmental allergies Essential (primary) hypertension Gastritis History of colon polyps Insulin dependent type 2 diabetes mellitus Internal hemorrhoid, bleeding Obstructive sleep apnea Peripheral vascular disease Vitamin D deficiency Surgical History Surgical History Arteriovenous fistula of left upper extremity (~2017) History of appendectomy (~1962) History of coronary artery bypass graft (~2013) S/P peripheral artery angioplasty (~03/2023) status post balloon angioplasty of bilateral common and external iliac arteries status post left iliofemoral endarterectomy Family History Family History Mother Diabetes mellitus Acute myocardial infarction Family history of congestive heart failure Father Hypertension Social History Social History (Updated 12/11/23 @ 22:41 by Frieda Suggs PA-C) Social History: Surrogate medical decision maker: Wilian Finleyn, sibling. Code status: Full code. Smoking packs per day: 10 Smoking cigarettes per day: 200.0 Years smoked: 10 Smoking pack-years: 100.00 Smoking status: Former smoker Tobacco type: cigarettes Second hand tobacco smoke exposure: No Smoking end date: 10/22/13 Alcohol intake: never Alcohol use details: Maybe 1 per yea
[2023-12-11 12:29] LABS: Eosinophils Absolute Auto 0.1 K/mm3 (0-0.3); Eosinophils Percent Auto 2.2 % (0-4.4); Hematocrit 23.8 % (42.0-52.0); Hemoglobin 7.4 g/dL (14.0-18.0); Immature Granulocyte Absolute 0.02 K/mm3 (0.00-0.031); Immature Granulocyte Percent A 0.5 % (0-0.5); Lymphocytes Absolute Auto 0.75 K/mm3 (0.9-3.2); Lymphocytes Percent Auto 18.7 % (18.3-44.2); Mean Corpuscular HGB Conc 31.1 g/dl (32-36); Mean Corpuscular Hemoglobin 30.7 pg (26-34); Mean Corpuscular Volume 98.8 fl (80-100); Mean Platelet Volume 11.5 fl (7.4-10.4); Monocytes Absolute Auto 0.4 K/mm3 (0.1-0.6); Neutrophils Absolute Auto 2.7 K/mm3 (1.3-6.7); Neutrophils Percent Auto 66.6 % (45.5-73.1); Platelet Count Result 168 k/mm3 (150-375); Red Blood Count 2.41 M/mm3 (4.6-6.20); Red Cell Distribution Width 14.6 % (11.5-14.5)
[2023-12-11 12:41] LABS: Alanine Aminotransferase 12 U/L (6-50); Albumin Level 3.8 g/dL (3.5-5.1); Alkaline Phosphatase 63 U/L (38-126); Anion Gap 7 mmol/L (8-16); Aspartate Amino Transferase 16 U/L (17-59); Bilirubin,Total 0.3 mg/dL (0.2-1.3); Blood Urea Nitrogen 20 mg/dL (9-20); Calcium 9.4 mg/dL (8.4-10.2); Carbon Dioxide 34 mmol/L (22-30); Chloride 93 mmol/L (98-107); Estimated CRCL calculation 17 ml/min; Estimated Glomerular Filt Rate 16; Glucose 177 mg/dL (65-110); Sodium 134 mmol/L (137-145)
[2023-12-11 12:46] LABS: Partial Thromboplastin Time 31.9 SECONDS (22.3-36.8); Prothrombin Time 13.9 Seconds (11.1-14.7)
[2023-12-11 13:51] LABS: Lactic Acid Reflex 1.7 mmol/L (0.7-2.0)
[2023-12-11] MEDS: TUBING, BLOOD SET 1 EACH XX (13:52)
[2023-12-11] MEDS: SODIUM CHLORIDE 0.9% IV 250 ML 30 ML IV CONT (13:53)
--- NOTE | 2023-12-11 15:04 | WPDGICN ---
Assessment and Plan Assessment and plan (1) Hematochezia: Code(s): K92.1 - Melena Status: Acute Assessment and Plan: at the time of his previous admission I found large hemorrhoids which I suspect may be the source of his bleeding again. Because the Bleeding seems to be continuous, I think he would benefit from a tagged red blood cell scan. (2) Internal hemorrhoid, bleeding: Code(s): K64.8 - Other hemorrhoids Status: Acute Assessment and Plan: the hemorrhoids were the main finding when he had colonoscopy recently. I suspect that that is again the problem and therefore he will very likely need surgical attention to these. (3) Gastritis: Qualifiers: Gastritis type: unspecified gastritis Chronicity: chronic Gastritis bleeding: without bleeding Qualified Code(s): K29.50 - Unspecified chronic gastritis without bleeding Code(s): K29.70 - Gastritis, unspecified, without bleeding Status: Acute Assessment and Plan: His EGD last month revealed gastritis but nothing to suggest hemorrhage. (4) End-stage renal disease on hemodialysis: Code(s): N18.6 - End stage renal disease; Z99.2 - Dependence on renal dialysis Status: Acute Assessment and Plan: On hemodialysis 3 times a week. Plan Nuclear medicine bleeding scan has been ordered. GI Consult Note Consult date/time: 12/11/23 15:04 HPI: Sam Morrissey Jr. is a 78 year old male We will is admitted this time because of rectal bleeding and anemia. He in fact was hospitalized with similar issues a few weeks ago. He had been on dialysis where his hemoglobin had been noted to have dropped to 7.2. Later in the emergency room was down to 6.6. Previously he had blood counts around 11. At that time he had EGD and colonoscopy with the findings of mild gastritis but also very large hemorrhoids. It was felt that he has brisk rectal bleeding at that time was due to his large internal hemorrhoid network. Now he is bleeding again with several episodes over the last 2 days. He denies abdominal pain nausea or vomiting. He takes an 81 mg aspirin but no other anticoagulants. Review of Systems Review of Systems: All systems reviewed & are unremarkable except as noted in HPI and below PMFSH Past Medical History Medical History Acute blood loss anemia (~10/2023) Anemia BPH loc w/o ur obs/LUTS CAD in [place] artery COPD (chronic obstructive pulmonary disease) Dyslipidemia End-stage renal disease on hemodialysis Environmental allergies Essential (primary) hypertension Gastritis History of colon polyps IDDM (insulin dependent diabetes mellitus) Internal hemorrhoid, bleeding CARITO (obstructive sleep apnea) Peripheral vascular disease Vitamin D deficiency Surgical History Surgical History Arteriovenous fistula of left upper extremity (~2017) History of appendectomy (~1962) History of coronary artery bypass graft (~2013) S/P peripheral artery angioplasty (~03/2023) status post balloon angioplasty of bilateral common and external iliac arteries status post left iliofemoral endarterectomy Family History Family History Mother Diabetes mellitus Acute myocardial infarction Family history of congestive heart failure Father Hypertension Social History Social History Smoking packs per day: 1.5 Smoking cigarettes per day: 30.0 Years smoked: 10 Smoking pack-years: 15.00 Smoking status: Former smoker Tobacco type: cigarettes Smoking end date: 10/22/13 Alcohol intake: never Alcohol use details: Maybe 1 per year Substance use: never Substance use type: does not use Do You Feel Safe in your Home?: Yes Lack of Transportation: No Lack of Food
--- NOTE | 2023-12-11 18:43 | PM.IMHP ---
H&P: HPI History of Present Illness Date/Time: 12/11/23 19:15 Chief Complaint: Rectal bleeding. Narrative: This is a very pleasant 78-year-old male with end-stage renal disease on hemodialysis, coronary artery disease, chronic obstructive pulmonary disease, chronic anemia, hypertension, insulin-dependent diabetes, obstructive sleep apnea, and other comorbidities who presented to the emergency department for evaluation of rectal bleeding. The patient provides the following history. He was hospitalized a few weeks ago with similar issues at which time he underwent EGD and colonoscopy with findings of mild gastritis and very large hemorrhoids. It was felt that his rectal bleeding was likely due to the internal hemorrhoids. He was transfused to a stable hemoglobin and was discharged. The last several days he has once again started to pass painless, bright red blood per rectum. He has not been straining to have bowel movements to his knowledge. He denies fever, chills, sweats, nausea, vomiting, abdominal pain, epigastric pain, hematemesis, and melena. He takes aspirin 81 mg daily but is on no other antiplatelets or anticoagulants. On discharge his hemoglobin was 10.9 and he is down once again to 7.4. Vital Signs have been stable since arrival. He is being admitted in this setting for close monitoring and GI consultation. Review of Systems Review of Systems: Twelve systems were reviewed and are negative except for as per HPI. [facility] Past Medical History Medical History (Updated 12/11/23 @ 22:42 by Frieda Suggs PA-C) Anemia Benign prostatic hyperplasia Chronic obstructive pulmonary disease Coronary artery disease Dyslipidemia End-stage renal disease on hemodialysis Environmental allergies Essential (primary) hypertension Gastritis History of colon polyps Insulin dependent type 2 diabetes mellitus Internal hemorrhoid, bleeding Obstructive sleep apnea Peripheral vascular disease Vitamin D deficiency Surgical History Surgical History Arteriovenous fistula of left upper extremity (~2017) History of appendectomy (~1962) History of coronary artery bypass graft (~2013) S/P peripheral artery angioplasty (~03/2023) status post balloon angioplasty of bilateral common and external iliac arteries status post left iliofemoral endarterectomy Family History Family History Mother Diabetes mellitus Acute myocardial infarction Family history of congestive heart failure Father Hypertension Social History Social History (Updated 12/11/23 @ 22:41 by Frieda Suggs PA-C) Social History: Surrogate medical decision maker: Wilian Morrissey, sibling. Code status: Full code. Smoking packs per day: 10 Smoking cigarettes per day: 200.0 Years smoked: 10 Smoking pack-years: 100.00 Smoking status: Former smoker Tobacco type: cigarettes Second hand tobacco smoke exposure: No Smoking end date: 10/22/13 Alcohol intake: never Alcohol use details: Maybe 1 per year Substance use: never Substance use type: does not use Do You Feel Safe in your Home?: Yes Lack of Transportation: No Lack of Food: Never True Current Housing: I Have Housing Concerned About Future Housing: No Difficulty Paying Gas/Electric Bills: No Difficulty Paying for Meds: No Currently Unemployed: No Education: Associate Degree Difficulty w/ Childcare or Family Care: No Living arrangements: with family Occupation/Education: retired Additional occupation/education comments: Retired from the [employer]. Spiritual care concerns: No Agree to blood products: Yes Meds Home Medications and Allergies Home Medications Medication Instructions Recorded Confirmed Type aspirin 81 mg tablet,delayed 81 mg PO DAILY 10/31/21 12/11/23 History release atorvastatin 20 mg tablet 20 mg PO QHS
[2023-12-11 21:04] LABS: Glucose Point of Care 91 mg/dl (65-105)
[2023-12-11 23:25] LABS: Hematocrit 26.2 % (42.0-52.0); Hemoglobin 7.9 g/dL (14.0-18.0)
[2023-12-12] VITALS (10 sets, daily range): BP systolic 127–147; BP diastolic 57–76; PULSE 62–80; RESP 16–18; TEMP 36.2–37; O2SAT 96–97
[2023-12-12 05:58] LABS: Hematocrit 25.9 % (42.0-52.0); Hemoglobin 7.9 g/dL (14.0-18.0)
[2023-12-12 06:16] LABS: Glucose Point of Care 94 mg/dl (65-105)
[2023-12-12 07:51] LABS: Glucose Point of Care 92 mg/dl (65-105)
[2023-12-12] MEDS: PANTOPRAZOLE 40 MG TABLET PO (08:49)
[2023-12-12] MEDS: amLODIPine BESYLATE 5 MG TABLET 10 MG PO (08:49)
[2023-12-12] MEDS: LOSARTAN POTASSIUM 100 MG TABLET PO (08:49)
[2023-12-12] MEDS: SEVELAMER CARBONATE 800 MG TABLET 3200 MG PO ×3 (08:49→16:18)
[2023-12-12] MEDS: FINASTERIDE 5 MG TABLET PO (08:49)
[2023-12-12] MEDS: LORATADINE 10 MG TABLET PO (08:50)
[2023-12-12] MEDS: carvediloL 25 MG TABLET PO ×2 (08:50→20:26)
[2023-12-12] MEDS: INSULIN GLARGINE (*BKC) 100 UNITS/ML 6 UNITS SUB-Q (08:57)
[2023-12-12 09:38] LABS: Hematocrit 27.9 % (42.0-52.0); Hemoglobin 8.5 g/dL (14.0-18.0)
--- NOTE | 2023-12-12 10:05 | PC.NURSE ---
[address] Malcolm to verify all meds
[2023-12-12 11:24] LABS: Glucose Point of Care 147 mg/dl (65-105)
[2023-12-12] MEDS: INSULIN ASPART (*BKC) 100 UNITS/ML SUB-Q ×2 (11:53→16:18)
--- NOTE | 2023-12-12 12:32 | PM.IMPN ---
Progress Note: A&P Assessment and Plan (1) Hematochezia: Code(s): K92.1 - Melena Status: Acute (2) Acute blood loss anemia: Code(s): D62 - Acute posthemorrhagic anemia Status: Acute (3) Obstructive sleep apnea: Code(s): G47.33 - Obstructive sleep apnea (adult) (pediatric) Status: Acute (4) Insulin dependent type 2 diabetes mellitus: Code(s): E11.9 - Type 2 diabetes mellitus without complications; Z79.4 - snf (current) use of insulin Status: Acute (5) Chronic obstructive pulmonary disease: Code(s): J44.9 - Chronic obstructive pulmonary disease, unspecified Status: Acute (6) Coronary artery disease: Code(s): I25.10 - Atherosclerotic heart disease of [place] coronary artery without angina pectoris Status: Acute (7) Benign prostatic hyperplasia: Code(s): N40.0 - Benign prostatic hyperplasia without lower urinary tract symptoms Status: Acute Plan The patient presented to the emergency department for evaluation of bright red blood per rectum as detailed in HPI. Labs, imaging, EKG, and all reports were personally reviewed. He was hospitalized several weeks ago with similar complaints at which time EGD and colonoscopy showed mild gastritis and internal hemorrhoids. It is likely his hemorrhoids that are bleeding. Tagged red blood cell scan has been ordered by Dr. Moreno. Which is negative. Plan to follow cbc, pt to have dilaysis in AM and DC. Surgery consult also made for internal hemorrhoids Subjective Date/time seen: 12/12/23 12:32 Interval history: pleasant 78-year-old male with end-stage renal disease on hemodialysis, coronary artery disease, chronic obstructive pulmonary disease, chronic anemia, hypertension, insulin-dependent diabetes, obstructive sleep apnea, and other comorbidities who presented to the emergency department for evaluation of rectal bleeding.? The patient provides the following history.? He was hospitalized a few weeks ago with similar issues at which time he underwent EGD and colonoscopy with findings of mild gastritis and very large hemorrhoids. It was felt that his rectal bleeding was likely due to the internal hemorrhoids. He was transfused to a stable hemoglobin and was discharged. The last several days he has once again started to pass painless, bright red blood per rectum. He has not been straining to have bowel movements. Pt had a TIBC scan showing no evidence of active gastrointestinal hemorrhage, pt due to have dialysis diane watch overnite follow CBC and DC in AM after dialysis Review of Systems Review of Systems: No further melena Objective Data Vital Signs Vital Signs: Vital Signs - 24 hr 12/11/23 13:41 12/11/23 14:00 12/11/23 13:10 Temperature 36.2 C L 36.6 C 36.6 C Pulse Rate 71 71 71 Respiratory Rate 20 18 17 Blood Pressure 114/48 L 145/88 H 97/68 L Pulse Oximetry 99 100 100 Oxygen Delivery 12/11/23 16:31 12/11/23 16:46 12/11/23 20:00 Temperature Pulse Rate 78 77 77 Respiratory Rate 23 H 17 17 Blood Pressure 90/59 L 162/62 H Pulse Oximetry 98 95 95 Oxygen Delivery Room Air 12/11/23 20:25 12/11/23 20:00 12/12/23 00:00 Temperature 36.2 C L Pulse Rate 74 76 73 Respiratory Rate 18 Blood Pressure 150/75 H Pulse Oximetry 96 Oxygen Delivery 12/12/23 04:00 12/12/23 05:32 12/12/23 08:50 Temperature 36.2 C L Pulse Rate 62 73 66 Respiratory Rate 18 Blood Pressure 147/57 H Pulse Oximetry 97 Oxygen Delivery 12/12/23 08:00 12/12/23 08:00 Temperature Pulse Rate 73 Respiratory Rate Blood Pressure Pulse Oximetry Oxygen Delivery Room Air Intake/Output Intake/Output: Intake & Output 12/09/23 12/10/23 12/11/23 12/12/23 23:59 23:59 23:59 23:59 Intake Total 250 920 Balance 250 920 Meds/Results Medications: Active Medications Generic Name Dose Route Start Last Admin Trade Name Freq PRN Reason Stop Dose Admin
--- NOTE | 2023-12-12 13:15 | PM.CNNEP ---
Assessment and Plan Assessment and plan (1) End stage renal disease: Code(s): N18.6 - End stage renal disease Status: Deleted Assessment and Plan: HD tomorrow continue T/T/S outpatient dialysis schedule while hospitalized follow electrolytes, volume status, and clearance (2) Hematochezia: Code(s): K92.1 - Melena Status: Acute Assessment and Plan: as noted by history felt to be secondary to #3 based on evaluation on last hospitalization GI recommendations noted (3) Internal hemorrhoid, bleeding: Code(s): K64.8 - Other hemorrhoids Status: Acute Assessment and Plan: as noted on last colonoscopy with hospitalization last month felt to be cause of #2 Surgery consulted (4) Anemia: Code(s): D64.9 - Anemia, unspecified Status: Deleted Assessment and Plan: noted drop in hemoglobin by labs done in ER GI recommendations noted PRBC transfusion per protocol Epogen with HD see #2 and #3 follow trend of H/H (5) Essential (primary) hypertension: Code(s): I10 - Essential (primary) hypertension Status: Chronic Assessment and Plan: reasonable control at this time follow trend of hemodynamics (6) IDDM (insulin dependent diabetes mellitus): Status: Chronic Assessment and Plan: follow accu-cheks glycemic control per hospitalists I will continue follow the patient with you while he remains hospitalized and make further recommendations as needed. Thank you for allowing me to participate in the care of this patient. History of Present Illness Reason for Consult Consult date: 12/12/23 Reason for consult: end stage renal disease Chief Complaint Chief complaint: gi bleed,esrd on hemodialysis History of Present Illness Narrative: The patient is a 78-year-old male with a past medical history as outlined below who presented to [facility] Emergency Room for rectal bleeding. the patient was hospitalized a few weeks ago with similar disease use at which time he underwent both EGD and colonoscopy with findings of mild gastritis and very large hemorrhoids. It was felt that his rectal bleeding was secondary to his internal hemorrhoids. He did receive a packed red blood cell transfusion during that hospital stay with improvement in his hemoglobin and stability of it. He was subsequently discharged once he was medically stable. He reports that over the last several days he once again has noticed painless bright red blood per rectum when having bowel movements. He denies any other subjective symptoms. Given this finding and his history as noted, he presented to the emergency room for further assessment. Workup and evaluation emergency room demonstrated the patient be hemodynamically stable. Routine blood tests once again demonstrated labs consistent with his known history of end-stage renal disease but his hemoglobin was down to 7.41 on discharge a few weeks ago was 10.9. He had no other critical electrolyte abnormalities present. Once again it was suspected that his rectal bleeding was secondary to his internal hemorrhoids and he was subsequently admitted to the hospital for further evaluation and therapy. Renal consultation was requested due to his end-stage renal disease. The patient normally dialyzes on a Sunday, , and Sunday dialysis schedule at [facility] under the care of Dr. Brett Tang. From a dialysis perspective, the patient usually does quite well with no significant fluid gains in between his dialysis treatments and relative stability in his monthly labs. His last dialysis renal was yesterday which he tolerated reasonably well. In general, he has been doing reasonably well from a dialysis perspective. Currently, at the time my visit, he appears to be no apparent distress. Review of Systems Review of Systems: As per HPI. [facility] Past Medical
--- NOTE | 2023-12-12 15:22 | PM.CNGS ---
Assessment and Plan Assessment and plan (1) Internal hemorrhoid, bleeding: Code(s): K64.8 - Other hemorrhoids Status: Acute Assessment and Plan: Patient with bleeding internal hemorrhoids. He has had acute anemia on his already chronic anemia that has required transfusions and admissions twice in the past 6 weeks. He had an EGD that showed gastritis and a colonoscopy last month that showed large internal hemorrhoids that GI feels is the source of his rectal bleeding. Currently his bleeding has slowed down and his hgb is stable. Discussed nonoperative and surgical treatment options with the patient. Discussed the option of proceeding with a hemorrhoidectomy and we spoke about the details of the procedure, risks, benefits, and possible alternatives. Discussed the expected postoperative recovery. Patient is scheduled for hemodialysis tomorrow. We have added him onto the surgery schedule for Sunday. We will put him on a clear liquid diet tomorrow and give two tap water enemas in the evening. (2) Hematochezia: Code(s): K92.1 - Melena Status: Acute Assessment and Plan: [place] to be caused by his internal hemorrhoids. See plan above. (3) End-stage renal disease on hemodialysis: Code(s): N18.6 - End stage renal disease; Z99.2 - Dependence on renal dialysis Status: Acute Assessment and Plan: Hemodialysis //Sun. Nephrology following. (4) COPD (chronic obstructive pulmonary disease): Qualifiers: COPD type: unspecified COPD Qualified Code(s): J44.9 - Chronic obstructive pulmonary disease, unspecified Code(s): J44.9 - Chronic obstructive pulmonary disease, unspecified Status: Chronic (5) Insulin dependent type 2 diabetes mellitus: Code(s): E11.9 - Type 2 diabetes mellitus without complications; Z79.4 - long-term (current) use of insulin Status: Acute (6) Obstructive sleep apnea: Code(s): G47.33 - Obstructive sleep apnea (adult) (pediatric) Status: Acute (7) Coronary artery disease: Code(s): I25.10 - Atherosclerotic heart disease of [place] coronary artery without angina pectoris Status: Acute (8) Peripheral vascular disease: Code(s): I73.9 - Peripheral vascular disease, unspecified Status: Acute Plan I have discussed the patient's case and plan of care with Dr. Lopez. Thank you for allowing us to see the patient in consultation and we will continue to follow along with you. History of Present Illness Consult details Consult date: 12/12/23 Reason for consult: other (Bleeding hemorrhoids) Requesting physician: Elfego Moreno MD Narrative: This is a 78-year-old man with ESRD on hemodialysis //Sun, CAD s/p 3-vessel CABG, PAD, COPD, IDDM, CARITO, and multiple other co-morbidities that we have been asked to see in surgical consultation for bleeding hemorrhoids. He reports chronic issues with constipation and diarrhea. He noticed rectal bleeding over a month ago that was typically after bowel movements. He was found to be anemic while at dialysis and sent to the ER, when he was hospitalized and work-up for acute on chronic anemia. His hgb was 6.6 and he received blood transfusion. He had an EGD that showed gastritis, and a colonoscopy that showed internal hemorrhoids. He was discharged home on 10/27/23, and denies having any rectal bleeding at that time. About a week ago, he began to notice rectal bleeding again after being constipated. He was having significant bleeding for a few days and actually came back into the ER due to the rectal bleeding yesterday. Labs showed his hgb was at 7.4 and he has received 1 unit of PRBCs. He is not on any anticoagulation. He was admitted to the Hospitalist service. GI was consulted and feels the internal hemorrhoids seen on his recent colonoscopy are the source for his rectal bleeding. Tagged red blood cell scan was negative for any active GI bleeding. GI then consulted our service for surgic
[2023-12-12 16:44] LABS: Glucose Point of Care 108 mg/dl (65-105)
[2023-12-12] MEDS: ATORVASTATIN 20 MG TABLET PO (20:26)
[2023-12-12] MEDS: TAMSULOSIN HCL 0.4 MG CAPSULE PO (20:26)
[2023-12-12 20:39] LABS: Glucose Point of Care 88 mg/dl (65-105)
[2023-12-13] VITALS (26 sets, daily range): BP systolic 127–178; BP diastolic 64–95; PULSE 54–72; RESP 16–18; TEMP 36.3–37.1; O2SAT 97–99
[2023-12-13 05:55] LABS: Hematocrit 25.8 % (42.0-52.0); Mean Corpuscular Hemoglobin 29.9 pg (26-34); Mean Corpuscular Volume 96.3 fl (80-100); Mean Platelet Volume 11.3 fl (7.4-10.4); Platelet Count Result 152 k/mm3 (150-375); Red Blood Count 2.68 M/mm3 (4.6-6.20); Red Cell Distribution Width 15.6 % (11.5-14.5); White Blood Count 4.2 K/mm3 (4.5-10.0)
[2023-12-13 06:21] LABS: Alanine Aminotransferase 10 U/L (6-50); Albumin Level 3.4 g/dL (3.5-5.1); Alkaline Phosphatase 47 U/L (38-126); Anion Gap 6 mmol/L (8-16); Aspartate Amino Transferase 14 U/L (17-59); Bilirubin,Total 0.3 mg/dL (0.2-1.3); Blood Urea Nitrogen 43 mg/dL (9-20); Calcium 9.9 mg/dL (8.4-10.2); Carbon Dioxide 29 mmol/L (22-30); Chloride 92 mmol/L (98-107); Estimated CRCL calculation 9 ml/min; Estimated Glomerular Filt Rate 8; Glucose 103 mg/dL (65-110); Magnesium 2.2 mg/dL (1.6-2.3); Phosphorus 5.8 mg/dL (2.5-4.5); Potassium 5.2 mmol/L (3.4-5.0); Sodium 127 mmol/L (137-145)
[2023-12-13 06:39] LABS: Hepatitis B Surface Antigen Negative (Negative)
[2023-12-13 07:01] LABS: Hepatitis B Surface Anti Res Positive
[2023-12-13 08:02] LABS: Glucose Point of Care 104 mg/dl (65-105)
[2023-12-13] MEDS: carvediloL 25 MG TABLET PO ×2 (08:46→20:35)
[2023-12-13] MEDS: FINASTERIDE 5 MG TABLET PO (08:46)
[2023-12-13] MEDS: PANTOPRAZOLE 40 MG TABLET PO (08:46)
[2023-12-13] MEDS: amLODIPine BESYLATE 5 MG TABLET 10 MG PO (08:46)
[2023-12-13] MEDS: SEVELAMER CARBONATE 800 MG TABLET 3200 MG PO ×2 (08:46→18:05)
[2023-12-13] MEDS: INSULIN GLARGINE (*BKC) 100 UNITS/ML 6 UNITS SUB-Q (08:47)
[2023-12-13] MEDS: LOSARTAN POTASSIUM 100 MG TABLET PO (08:47)
[2023-12-13] MEDS: LORATADINE 10 MG TABLET PO (08:47)
--- NOTE | 2023-12-13 11:20 | PC.NURSE ---
patient to dialysis at 1120
--- NOTE | 2023-12-13 11:38 | PM.PNGS ---
Progress Note: A&P Assessment and Plan (1) Internal hemorrhoid, bleeding: Code(s): K64.8 - Other hemorrhoids Status: Acute Assessment and Plan: Patient with bleeding internal hemorrhoids. Bleeding has stopped. Hgb stable today at 8. He will receive hemodialysis today and we are planning for his surgery tomorrow. He will be on clear liquids today and NPO after midnight. We have ordered two tap water enemas to be done tonight. Plan for anorectal examination and excisional hemorrhoidectomy tomorrow. (2) Hematochezia: Code(s): K92.1 - Melena Status: Acute Assessment and Plan: [place] to be caused by his internal hemorrhoids. See plan above. (3) End-stage renal disease on hemodialysis: Code(s): N18.6 - End stage renal disease; Z99.2 - Dependence on renal dialysis Status: Acute Assessment and Plan: Plan for hemodialysis today. Plan I have discussed the patient's case and plan of care with Dr. Lopez. Subjective Subjective Date/Time Seen: 12/13/23 11:38 Interval history: Doing well. No acute events overnight. Denies anymore rectal bleeding. Plan for dialysis today. Hgb remains stable at 8. Exam Const: General: comfortable and no acute distress GI: Inspection: non-distended GI Palp: Yes Soft to palpation and No Tenderness to palpation present (GI) Rectal Exam: other (no bleeding on visual inspection, no prolapsed internal hemorrhoids visible) Objective Data Vital Signs Vital Signs: Vital Signs - 24 hr 12/12/23 14:00 12/12/23 12:00 12/12/23 16:00 Temperature 98.6 F Pulse Rate 80 69 65 Respiratory Rate 16 Blood Pressure 127/76 Pulse Oximetry 97 Oxygen Delivery 12/12/23 20:00 12/12/23 22:00 12/12/23 20:00 Temperature 98.1 F Pulse Rate 69 73 Respiratory Rate 16 Blood Pressure 142/60 H Pulse Oximetry 97 96 Oxygen Delivery Room Air 12/13/23 00:00 12/13/23 04:00 12/13/23 06:00 Temperature 98 F Pulse Rate 60 70 72 Respiratory Rate 16 Blood Pressure 138/64 Pulse Oximetry 97 Oxygen Delivery 12/13/23 08:46 12/13/23 08:00 12/13/23 08:00 Temperature Pulse Rate 72 71 Respiratory Rate Blood Pressure Pulse Oximetry Oxygen Delivery Room Air Intake/Output Intake/Output: Intake & Output 12/10/23 12/11/23 12/12/23 12/13/23 23:59 23:59 23:59 23:59 Intake Total 250 1340 360 Output Total 150 200 Balance 250 1190 160 Meds/Results Medications: Active Medications Generic Name Dose Route Start Last Admin Trade Name Freq PRN Reason Stop Dose Admin Amlodipine Besylate 10 mg 12/12/23 09:00 12/13/23 08:46 Amlodipine Besylate 5 Mg Tablet PO 10 mg DAILY DAVID Administration Atorvastatin Calcium 20 mg 12/12/23 21:00 12/12/23 20:26 Atorvastatin 20 Mg Tablet PO 20 mg QHS DAVID Administration Carvedilol 25 mg 12/12/23 09:00 12/13/23 08:46 Carvedilol 25 Mg Tablet PO 25 mg Q12HR DAVID Administration Epoetin David-epbx 10,000 units 12/13/23 20:30 Epoetin David-Epbx 10,000 Units/Ml Vial IV PUSH 12/13/23 20:31 ONCE ONE Finasteride 5 mg 12/12/23 09:00 12/13/23 08:46 Finasteride 5 Mg Tablet PO 5 mg DAILY DAVID Administration Albumin Human 50 mls @ 999 mls/hr 12/13/23 01:30 Albutein IVPB 01/12/24 01:29 Q10M PRN HYPOTENSION Insulin Aspart 4 units 12/12/23 06:30 12/13/23 08:45 Insulin Aspart (*Bkc) 100 Units/Ml SUB-Q 01/11/24 06:29 Not Given TIDAC [facility] Insulin Glargine 6 units 12/12/23 09:00 12/13/23 08:47 Insulin Glargine (*Bkc) 100 Units/Ml SUB-Q 6 units DAILY DAVID Administration Loratadine 10 mg 12/12/23 09:00 12/13/23 08:47 Loratadine 10 Mg Tablet PO 10 mg DAILY DAVID Administration Losartan Potassium 100 mg 12/12/23 09:00 12/13/23 08:47 Losartan Potassium 100 Mg Tablet PO 100 mg DAILY DAVID Administration Pantoprazole Sodium 40 mg 12/12/23 09:00 12/13/23 08:46 Pantoprazole 40 Mg Tablet
--- NOTE | 2023-12-13 13:02 | P.PNNP_ITS ---
Progress Note: A&P Assessment and Plan (1) End stage renal disease: Code(s): N18.6 - End stage renal disease Status: Deleted Assessment and Plan: * HD today * continue T/T/S outpatient dialysis schedule while hospitalized * follow electrolytes, volume status, and clearance (2) Hematochezia: Code(s): K92.1 - Melena Status: Acute Assessment and Plan: * as noted by history * felt to be secondary to #3 based on evaluation on last hospitalization * GI recommendations noted (3) Internal hemorrhoid, bleeding: Code(s): K64.8 - Other hemorrhoids Status: Acute Assessment and Plan: * as noted on last colonoscopy with hospitalization last month * felt to be cause of #2 * Surgery following (4) Anemia: Code(s): D64.9 - Anemia, unspecified Status: Deleted Assessment and Plan: * noted drop in hemoglobin by labs done in ER * GI recommendations noted * PRBC transfusion per protocol * Epogen with HD * see #2 and #3 * follow trend of H/H (5) Essential (primary) hypertension: Code(s): I10 - Essential (primary) hypertension Status: Chronic Assessment and Plan: * reasonable control at this time * follow trend of hemodynamics (6) IDDM (insulin dependent diabetes mellitus): Status: Chronic Assessment and Plan: * follow accu-cheks * glycemic control per hospitalists Will continuje to follow. Subjective Date/time seen: 12/13/23 13:02 Interval history: Follow-up for end stage renal disease on hemodialysis. Tolerating hemodialysis treatment at the time of my visit (seen on HD at 1 2:51PM); no apparent distress noted; no issues/events overnight or earlier this morning. Exam Narrative: General: elderly but WD/WN male in NAD Heart: normal S1 and S2; no rub Lungs: clear to auscultation Abdomen: soft, nontender, nondistended, positive bowel sounds Extremities: no cyanosis or clubbing; no edema Skin: warm and dry Objective Data Vital Signs Vital Signs: Vital Signs Temp Pulse Resp BP Pulse Ox O2 Del Method 12/13/23 08:00 71 12/13/23 08:00 Room Air 12/13/23 08:46 72 12/13/23 06:00 98 F 72 16 138/64 97 12/13/23 04:00 70 12/13/23 00:00 60 12/12/23 20:00 73 12/12/23 22:00 98.1 F 69 16 142/60 H 96 12/12/23 20:00 97 Room Air 12/12/23 16:00 65 12/12/23 14:00 98.6 F 80 16 127/76 97 Intake/Output Intake/Output: Intake & Output 12/10/23 12/11/23 12/12/23 12/13/23 23:59 23:59 23:59 23:59 Intake Total 250 1340 360 Output Total 150 200 Balance 250 1190 160 Meds/Results Medications: Active Medications Generic Name Dose Route Start Last Admin Trade Name Freq PRN Reason Stop Dose Admin Amlodipine Besylate 10 mg 12/12/23 09:00 12/13/23 08:46 Amlodipine Besylate 5 Mg Tablet PO 10 mg DAILY DAVID Administration Atorvastatin Calcium 20 mg 12/12/23 21:00 12/12/23 20:26 Atorvastatin 20 Mg Tablet PO 20 mg QHS DAVID Administration Carvedilol 25 mg 12/12/23 09:00 11/23
--- NOTE | 2023-12-13 13:02 | PM.PNNEP ---
Progress Note: A&P Assessment and Plan (1) End stage renal disease: Code(s): N18.6 - End stage renal disease Status: Deleted Assessment and Plan: HD today continue T/T/S outpatient dialysis schedule while hospitalized follow electrolytes, volume status, and clearance (2) Hematochezia: Code(s): K92.1 - Melena Status: Acute Assessment and Plan: as noted by history felt to be secondary to #3 based on evaluation on last hospitalization GI recommendations noted (3) Internal hemorrhoid, bleeding: Code(s): K64.8 - Other hemorrhoids Status: Acute Assessment and Plan: as noted on last colonoscopy with hospitalization last month felt to be cause of #2 Surgery following (4) Anemia: Code(s): D64.9 - Anemia, unspecified Status: Deleted Assessment and Plan: noted drop in hemoglobin by labs done in ER GI recommendations noted PRBC transfusion per protocol Epogen with HD see #2 and #3 follow trend of H/H (5) Essential (primary) hypertension: Code(s): I10 - Essential (primary) hypertension Status: Chronic Assessment and Plan: reasonable control at this time follow trend of hemodynamics (6) IDDM (insulin dependent diabetes mellitus): Status: Chronic Assessment and Plan: follow accu-cheks glycemic control per hospitalists Will continuje to follow. Subjective Date/time seen: 12/13/23 13:02 Interval history: Follow-up for end stage renal disease on hemodialysis. Tolerating hemodialysis treatment at the time of my visit (seen on HD at 12:51PM); no apparent distress noted; no issues/events overnight or earlier this morning. Exam Narrative: General: elderly but WD/WN male in NAD Heart: normal S1 and S2; no rub Lungs: clear to auscultation Abdomen: soft, nontender, nondistended, positive bowel sounds Extremities: no cyanosis or clubbing; no edema Skin: warm and dry Objective Data Vital Signs Vital Signs: Vital Signs Temp Pulse Resp BP Pulse Ox O2 Del Method 12/13/23 08:00 71 12/13/23 08:00 Room Air 12/13/23 08:46 72 12/13/23 06:00 98 F 72 16 138/64 97 12/13/23 04:00 70 12/13/23 00:00 60 12/12/23 20:00 73 12/12/23 22:00 98.1 F 69 16 142/60 H 96 12/12/23 20:00 97 Room Air 12/12/23 16:00 65 12/12/23 14:00 98.6 F 80 16 127/76 97 Intake/Output Intake/Output: Intake & Output 12/10/23 12/11/23 12/12/23 12/13/23 23:59 23:59 23:59 23:59 Intake Total 250 1340 360 Output Total 150 200 Balance 250 1190 160 Meds/Results Medications: Active Medications Generic Name Dose Route Start Last Admin Trade Name Freq PRN Reason Stop Dose Admin Amlodipine Besylate 10 mg 12/12/23 09:00 12/13/23 08:46 Amlodipine Besylate 5 Mg Tablet PO 10 mg DAILY DAVID Administration Atorvastatin Calcium 20 mg 12/12/23 21:00 12/12/23 20:26 Atorvastatin 20 Mg Tablet PO 20 mg QHS DAVID Administration Carvedilol 25 mg 12/12/23 09:00 12/13/23 08:46 Carvedilol 25 Mg Tablet PO 25 mg Q12HR DAVID Administration Epoetin David-epbx 10,000 units 12/13/23 20:30 Epoetin David-Epbx 10,000 Units/Ml Vial IV PUSH 12/13/23 20:31 ONCE ONE Finasteride 5 mg 12/12/23 09:00 12/13/23 08:46 Finasteride 5 Mg Tablet PO 5 mg DAILY DAVID Administration Albumin Human 50 mls @ 999 mls/hr 12/13/23 01:30 Albutein IVPB 01/12/24 01:29 Q10M PRN HYPOTENSION Insulin Aspart 4 units 12/12/23 06:30 12/13/23 12:40 Insulin Aspart (*Bkc) 100 Units/Ml SUB-Q 01/11/24 06:29 Not Given TIDAC DAVID Insulin Glargine 6 units 12/12/23 09:00 12/13/23 08:47 Insulin Glargine (*Bkc) 100 Units/Ml SUB-Q 6 units DAILY DAVID Administration Loratadine 10 mg 12/12/23 09:00 12/13/23 08:47 Loratadine 10 Mg Tablet PO 10 mg DAILY DAVID Administration Losartan Pot
--- NOTE | 2023-12-13 13:25 | PM.IMPN ---
Progress Note: A&P Assessment and Plan (1) Hematochezia: Code(s): K92.1 - Melena Status: Acute (2) Acute blood loss anemia: Code(s): D62 - Acute posthemorrhagic anemia Status: Acute (3) Obstructive sleep apnea: Code(s): G47.33 - Obstructive sleep apnea (adult) (pediatric) Status: Acute (4) Insulin dependent type 2 diabetes mellitus: Code(s): E11.9 - Type 2 diabetes mellitus without complications; Z79.4 - prison (current) use of insulin Status: Acute (5) Chronic obstructive pulmonary disease: Code(s): J44.9 - Chronic obstructive pulmonary disease, unspecified Status: Acute (6) Coronary artery disease: Code(s): I25.10 - Atherosclerotic heart disease of [place] coronary artery without angina pectoris Status: Acute (7) Benign prostatic hyperplasia: Code(s): N40.0 - Benign prostatic hyperplasia without lower urinary tract symptoms Status: Acute Plan The patient presented to the emergency department for evaluation of bright red blood per rectum as detailed in HPI. Labs, imaging, EKG, and all reports were personally reviewed. He was hospitalized several weeks ago with similar complaints at which time EGD and colonoscopy showed mild gastritis and internal hemorrhoids. It is likely his hemorrhoids that are bleeding. Tagged red blood cell scan has been ordered by Dr. Moreno. Which is negative. Plan to follow cbc, pt to have dialysis today and surgery for internal hemorrhoids tomorrow Subjective Date/time seen: 12/13/23 13:25 Interval history: pleasant 78-year-old male with end-stage renal disease on hemodialysis, coronary artery disease, chronic obstructive pulmonary disease, chronic anemia, hypertension, insulin-dependent diabetes, obstructive sleep apnea, and other comorbidities who presented to the emergency department for evaluation of rectal bleeding.? The patient provides the following history.? He was hospitalized a few weeks ago with similar issues at which time he underwent EGD and colonoscopy with findings of mild gastritis and very large hemorrhoids. It was felt that his rectal bleeding was likely due to the internal hemorrhoids. He was transfused to a stable hemoglobin and was discharged. The last several days he has once again started to pass painless, bright red blood per rectum. He has not been straining to have bowel movements. Pt had a TIBC scan showing no evidence of active gastrointestinal hemorrhage, pt due to have dialysis today and surgery tomorrow, keep pt npo overnite Review of Systems Review of Systems: No further melena Exam Narrative: General: Well-developed Neck: Supple. Respiratory: Lungs are clear to auscultation bilaterally. Cardiovascular: Regular rate and rhythm with S1-S2. Gastrointestinal: Abdomen is soft, nontender, and nondistended with positive bowel sounds. Delete Skin: Warm and dry. Extremities: No cyanosis, clubbing, or significant edema. Radial and pedal pulses intact. Neurological: Alert. Cranial nerves 2-12 are grossly intact. No gross focal deficits to casual conversation. Psychiatric: Pleasant and cooperative with normal mood and affect. Judgment and insight intact. Objective Data Vital Signs Vital Signs: Vital Signs - 24 hr 12/12/23 14:00 12/12/23 16:00 12/12/23 20:00 Temperature 37.0 C Pulse Rate 80 65 Respiratory Rate 16 Blood Pressure 127/76 Pulse Oximetry 97 97 Oxygen Delivery Room Air 12/12/23 22:00 12/12/23 20:00 12/13/23 00:00 Temperature 36.7 C Pulse Rate 69 73 60 Respiratory Rate 16 Blood Pressure 142/60 H Pulse Oximetry 96 Oxygen Delivery 12/13/23 04:00 12/13/23 06:00 12/13/23 08:46 Temperature 36.6 C Pulse Rate 70 72 72 Respiratory Rate 16 Blood Pressure 138/64 Pulse Oximetry 97 Oxygen Delivery 12/13/23 08:00 12/13/23 08:00 Temperature Pulse Rate 71 Respiratory Rate Blood Pressure Pulse O
[2023-12-13] MEDS: EPOETIN ALFA-EPBX 10,000 UNITS/ML VIAL 10000 UNITS IV PUSH (15:30)
[2023-12-13 16:45] LABS: Glucose Point of Care 158 mg/dl (65-105)
--- NOTE | 2023-12-13 17:12 | PC.NURSE ---
patient returned per RN overseeing my patient while off floor for meeting at 1605, pr risk lead, 3 L was pulled off today.
[2023-12-13] MEDS: TAMSULOSIN HCL 0.4 MG CAPSULE PO (20:36)
[2023-12-13] MEDS: ATORVASTATIN 20 MG TABLET PO (20:36)
[2023-12-13 20:41] LABS: Glucose Point of Care 206 mg/dl (65-105)
[2023-12-14] VITALS (18 sets, daily range): BP systolic 109–168; BP diastolic 41–95; PULSE 56–85; RESP 14–20; TEMP 36.3–37.4; O2SAT 92–100
[2023-12-14 06:21] LABS: Hematocrit 26.6 % (42.0-52.0); Hemoglobin 8.5 g/dL (14.0-18.0); Mean Corpuscular Hemoglobin 30.9 pg (26-34); Mean Corpuscular Volume 96.7 fl (80-100); Mean Platelet Volume 11.4 fl (7.4-10.4); Platelet Count Result 154 k/mm3 (150-375); Red Blood Count 2.75 M/mm3 (4.6-6.20); Red Cell Distribution Width 15.2 % (11.5-14.5); White Blood Count 4.1 K/mm3 (4.5-10.0)
[2023-12-14 06:50] LABS: Alanine Aminotransferase 11 U/L (6-50); Albumin Level 3.4 g/dL (3.5-5.1); Alkaline Phosphatase 45 U/L (38-126); Anion Gap 5 mmol/L (8-16); Aspartate Amino Transferase 14 U/L (17-59); Bilirubin,Total 0.3 mg/dL (0.2-1.3); Blood Urea Nitrogen 22 mg/dL (9-20); Calcium 10.1 mg/dL (8.4-10.2); Carbon Dioxide 26 mmol/L (22-30); Chloride 96 mmol/L (98-107); Estimated CRCL calculation 12 ml/min; Estimated Glomerular Filt Rate 11; Glucose 114 mg/dL (65-110); Magnesium 2.1 mg/dL (1.6-2.3); Phosphorus 4.9 mg/dL (2.5-4.5); Potassium 4.5 mmol/L (3.4-5.0); Sodium 127 mmol/L (137-145)
[2023-12-14 08:02] LABS: Glucose Point of Care 122 mg/dl (65-105)
--- NOTE | 2023-12-14 09:01 | PM.IMPN ---
Progress Note: A&P Assessment and Plan (1) Hematochezia: Code(s): K92.1 - Melena Status: Acute (2) Acute blood loss anemia: Code(s): D62 - Acute posthemorrhagic anemia Status: Acute (3) Obstructive sleep apnea: Code(s): G47.33 - Obstructive sleep apnea (adult) (pediatric) Status: Acute (4) Insulin dependent type 2 diabetes mellitus: Code(s): E11.9 - Type 2 diabetes mellitus without complications; Z79.4 - [facility] (current) use of insulin Status: Acute (5) Chronic obstructive pulmonary disease: Code(s): J44.9 - Chronic obstructive pulmonary disease, unspecified Status: Acute (6) Coronary artery disease: Code(s): I25.10 - Atherosclerotic heart disease of [place] coronary artery without angina pectoris Status: Acute (7) Benign prostatic hyperplasia: Code(s): N40.0 - Benign prostatic hyperplasia without lower urinary tract symptoms Status: Acute Plan This is a 78-year-old male with end-stage renal disease on hemodialysis, coronary artery disease, chronic obstructive pulmonary disease, chronic anemia, hypertension, insulin-dependent diabetes, obstructive sleep apnea, and other comorbidities who presented to the emergency department for evaluation of rectal bleeding.? The patient provides the following history.? He was hospitalized a few weeks ago with similar issues at which time he underwent EGD and colonoscopy with findings of mild gastritis and very large hemorrhoids. It was felt that his rectal bleeding was likely due to the internal hemorrhoids. He was transfused to a stable hemoglobin and was discharged. The last several days he has once again started to pass painless, bright red blood per rectum. He has not been straining to have bowel movements. Vitals remained stable. GI has been consulted. Nuclear medicine bleeding scan was performed which did not show any evidence of active gastrointestinal hemorrhage. Nephrology consulted for inpatient hemodialysis. General surgery was consulted. He is status post hemorrhoidectomy Subjective Date/time seen: 12/14/23 09:01 Interval history: This is a 78-year-old male with end-stage renal disease on hemodialysis, coronary artery disease, chronic obstructive pulmonary disease, chronic anemia, hypertension, insulin-dependent diabetes, obstructive sleep apnea, and other comorbidities who presented to the emergency department for evaluation of rectal bleeding.? The patient provides the following history.? He was hospitalized a few weeks ago with similar issues at which time he underwent EGD and colonoscopy with findings of mild gastritis and very large hemorrhoids. It was felt that his rectal bleeding was likely due to the internal hemorrhoids. He was transfused to a stable hemoglobin and was discharged. The last several days he has once again started to pass painless, bright red blood per rectum. He has not been straining to have bowel movements. Vitals remained stable. GI has been consulted. Nuclear medicine bleeding scan was performed which did not show any evidence of active gastrointestinal hemorrhage. Nephrology consulted for inpatient hemodialysis. General surgery was consulted. He is planned for hemorrhoidectomy today Review of Systems Review of Systems: All systems reviewed & are unremarkable except as noted in HPI and below Exam Narrative: General: Well-developed,not in acute distress Neck: Supple. Respiratory: Lungs are clear to auscultation bilaterally. Cardiovascular: Regular rate and rhythm with S1-S2. Gastrointestinal: Abdomen is soft, nontender, and nondistended with positive bowel sounds. Delete Skin: Warm and dry. Extremities: No cyanosis, clubbing, or significant edema. Radial and pedal pulses intact. Neurological: Alert. Cranial nerves 2-12 are grossly intact. No gross focal deficits to casual conversation. Psychiatric: Pleasant and cooperative with normal mood and affect. Hattie
--- NOTE | 2023-12-14 09:13 | PC.NURSE ---
Pt NPO for scheduled surgery. Meds are being held until after surgery. Most meds are daily/Q12 so will administer when pt returns to unit.
--- NOTE | 2023-12-14 09:55 | WPDHPUPDATE1 ---
History and Physical Update Update Date/Time: 12/14/23 09:55 History and Physical has been reviewed, including an updated exam of the patient. There are NO changes in the patient's condition. Risks, benefits, and alternatives have been discussed and questions answered. Patient agrees to proceed with procedure.
--- NOTE | 2023-12-14 09:58 | WPDANESEPPF ---
Anes - Initial Pre Proc Eval Procedure: Operation Date: 12/14/23 10:30 Proposed Procedures p Hemorrhoidectomy, Anal Rectal Procedure - Matt Lopez MD Date/Time: 12/14/23 09:58 Surgeon: Demetrio Wahl MD Pre Op Diagnosis: gi bleed,esrd on hemodialysis Patient Data Age: 78 Gender: M Height: 1.7 m Weight: 91.8 kg Last Vital Signs Temp 36.5 C 12/14/23 06:00 Pulse 73 12/14/23 06:00 Resp 18 12/14/23 06:00 BP 168/70 H 12/14/23 06:00 Pulse Ox 95 12/14/23 06:00 O2 Del Method Room Air 12/14/23 08:00 Allergies Allergy/AdvReac Type Severity Reaction Status Date / Time No Known Allergies Allergy Verified 11/07/23 08:06 Home Medications Medication Instructions Recorded Confirmed Type aspirin 81 mg tablet,delayed 81 mg PO DAILY 10/31/21 12/11/23 History release atorvastatin 20 mg tablet 20 mg PO QHS 10/31/21 12/11/23 History carvedilol 25 mg tablet 25 mg PO BID 10/31/21 12/11/23 History dulaglutide 1.5 mg/0.5 mL 1.5 mg subcut WEEKLY 10/31/21 12/11/23 History subcutaneous pen injector (Trulicity) insulin lispro 100 unit/mL 4 unit subcut .TIDAC 10/31/21 12/11/23 History subcutaneous pen loratadine 10 mg tablet (Claritin) 10 mg PO DAILY 10/31/21 12/11/23 History losartan 100 mg tablet 100 mg PO DAILY 10/31/21 12/11/23 History sildenafil 100 mg tablet (Viagra) 100 mg PO PRN PRN impotence 10/31/21 12/11/23 History pantoprazole 40 mg tablet,delayed 40 mg PO QAM #30 tabs 10/27/23 12/11/23 Rx release (Protonix) amlodipine 10 mg tablet 10 mg PO DAILY 11/07/23 12/11/23 History finasteride 5 mg tablet 5 mg PO DAILY 11/07/23 12/11/23 History insulin glargine 100 unit/mL (3 6 unit subcut DAILY 11/07/23 12/11/23 History mL) subcutaneous pen (Lantus Solostar U-100 Insulin) sevelamer HCl 800 mg tablet 3,200 mg PO TID 11/07/23 12/11/23 History tamsulosin 0.4 mg capsule 0.4 mg PO QHS 11/07/23 12/11/23 History cinacalcet 90 mg PO DAILY 12/12/23 12/12/23 History Laboratory Tests 12/13/23 12/13/23 12/14/23 16:42 20:38 06:10 WBC 4.1 L K/mm3 (4.5-10.0) RBC 2.75 L M/mm3 (4.6-6.20) Hgb 8.5 L g/dL (14.0-18.0) Hct 26.6 L % (42.0-52.0) MCV 96.7 fl (80-100) MCH 30.9 pg (26-34) MCHC 32.0 g/dl (32-36) RDW 15.2 H % (11.5-14.5) Plt Count 154 k/mm3 (150-375) MPV 11.4 H fl (7.4-10.4) Sodium 127 L mmol/L (137-145) Potassium 4.5 mmol/L (3.4-5.0) Chloride 96 L mmol/L (98-107) Carbon Dioxide 26 mmol/L (22-30) Anion Gap 5 L mmol/L (8-16) BUN 22 H D mg/dL (9-20) Creatinine 5.10 H mg/dL (0.7-1.3) Estim Creat Clear Calc 12 ml/min Estimated GFR 11 L (59 - ) Glucose 114 H mg/dL (65-110) POC Capillary Glucose 158 H mg/dl 206 H mg/dl (65-105) (65-105) Calcium 10.1 mg/dL (8.4-10.2) Phosphorus 4.9 H mg/dL (2.5-4.5) Magnesium 2.1 mg/dL (1.6-2.3) Total Bilirubin 0.3 mg/dL (0.2-1.3) AST 14 L U/L (17-59) ALT 11 U/L (6-50) Alkaline Phosphatase 45 U/L (38-126) Total Protein 6.0 L g/dL (6.3-8.2) Albumin 3.4 L g/dL (3.5-5.1) 12/14/23 07:56 WBC RBC Hgb Hct MCV MCH MCHC RDW Plt Count MPV Sodium Potassium Chloride Carbon Dioxide Anion Gap BUN Creatinine Estim Creat Clear Calc Estimated GFR Glucose POC Capillary Glucose 122 H mg/dl (65-105) Calcium Phosphorus Magnesium Total Bilirubin AST ALT Alkaline Phosphatase Total Protein Albumin Patient hx anesthesia problems: other (cardiac arrest) Family hx anesthesia problems: none Results Review: All pre
[2023-12-14] MEDS: SODIUM CHLORIDE 0.9% IV 500 ML 30 ML IV CONT (10:07)
[2023-12-14] MEDS: LIDO 1%/EPINEPHRINE 1:100,000 20 ML VIAL INFILTRATE (10:24)
[2023-12-14] MEDS: BUPivacaine HCL 0.5% 10 ML AMP 20 ML INFILTRATE (10:25)
[2023-12-14] MEDS: LIDOCAINE HCL 2% GEL UROJET 10 ML PKG MUCOUS MEM (10:39)
[2023-12-14 12:05] LABS: Glucose Point of Care 120 mg/dl (65-105)
[2023-12-14] MEDS: amLODIPine BESYLATE 5 MG TABLET 10 MG PO (13:10)
[2023-12-14] MEDS: carvediloL 25 MG TABLET PO ×2 (13:10→20:47)
[2023-12-14] MEDS: LOSARTAN POTASSIUM 100 MG TABLET PO (13:11)
[2023-12-14] MEDS: LORATADINE 10 MG TABLET PO (13:11)
[2023-12-14] MEDS: PANTOPRAZOLE 40 MG TABLET PO (13:11)
[2023-12-14] MEDS: SEVELAMER CARBONATE 800 MG TABLET 3200 MG PO ×2 (13:11→16:37)
[2023-12-14] MEDS: FINASTERIDE 5 MG TABLET PO (13:11)
--- NOTE | 2023-12-14 15:15 | W.PM.PROC2 ---
Procedure Note - Detailed Date of Procedure 12/14/23 Pre-op Diagnosis Bleeding internal hemorrhoids Post-op Diagnosis Same Procedure Performed Anorectal evaluation under anesthesia and excisional hemorrhoidectomy x3 Surgeon Matt Lopez MD Anesthesia General Indications Patient is a 78-year-old gentleman who has end-stage renal disease on hemodialysis. He already suffers from chronic anemia due to his renal disease but more recently has had some lower GI bleeding which is thought to be due to bleeding internal hemorrhoids. He had had a colonoscopy recently which showed only internal hemorrhoids. He presents now for excisional hemorrhoidectomy while he is in the hospital to get treated for his anemia. Findings Patient has 3 internal hemorrhoids located at the 12 o'clock, 6 o'clock, and 9 o'clock positions with the patient prone. None of these hemorrhoids appear to be thrombosed or had any active bleeding or stigmata of recent bleeding. No distal rectal polyps or masses were seen. No other anal canal lesions were seen. Description of Procedure After informed consent was obtained patient was brought to the operating room was placed under general endotracheal anesthesia on the gurney and then turned into the prone leandro-knife position on the operating table. The area the perianal region was then prepped and draped usual sterile fashion with the buttocks taped apart. A time-out was then performed correctly identifying the patient as well as the procedure to be performed verifying he had gotten some perioperative IV antibiotics. I 1st started by performing dilation the anal sphincters gently. I then advanced a anal speculum into the anal canal and performed a circumferential evaluation distal rectum which showed no lesions. Evaluation of the anal canal showed 3 small to moderate sized internal hemorrhoids which were nonthrombosed and did not have any big moderate recent bleeding. No external hemorrhoids were seen. These internal hemorrhoids were noted to be at the 12 o'clock, 6 o'clock, and 9 o'clock positions with the patient prone. I then proceeded to excise out all 3 of these hemorrhoids in a similar fashion. I 1st started by excising of the hemorrhoid at the 6 o'clock position. A 2-0 chromic stitch was placed at the apex of the hemorrhoid. Local anesthetic was then injected underneath the hemorrhoid tissue and then a elliptical incision was made in the tissue on either side of the hemorrhoid tissue with a scalp. The incision was carried out onto the perianal skin. I then spread underneath the hemorrhoid tissue with Metzenbaum scissors and palpated the internal and external sphincter muscles. I then excised off the hemorrhoid tissue utilizing electrocautery taking great care not to injure the sphincter muscles. All 3 hemorrhoids were excised in this manner. An all 3 hemorrhoids were sent to pathology with their respective positions separately. All 3 incisions were then closed utilizing the 2-0 chromic suture which was placed at the apex of the hemorrhoid and then run in a locking fashion to reapproximate the edges of the tissue in the anal canal and in the perianal skin. Once I reached the perianal skin I transition to using a 3-0 Vicryl suture placed in a running and locking fashion. All 3 incisions were hemostatic. At the end the procedure all still able to easily admit 2 fingerbreadths into the anal canal. I then irrigated the anal canal was hemostatic. I then proceeded to place a perianal block utilizing 1% lidocaine mixed with 0.5% Marcaine in a 50 50 mixture with some epinephrine and injected in the perianal skin for a field block. I also injected bilateral pudendal nerve blocks as well. a piece of Gelfoam soaked with 1% lidocaine was then placed in the anal canal. The area was then cleaned and then sterile dressing and disposable underwear was placed. The patient tolerated the procedure well no complications. All sponges,
[2023-12-14 16:23] LABS: Glucose Point of Care 159 mg/dl (65-105)
[2023-12-14 19:47] LABS: Glucose Point of Care 147 mg/dl (65-105)
[2023-12-14] MEDS: DOCUSATE SODIUM 100 MG CAPSULE PO (20:48)
[2023-12-14] MEDS: TAMSULOSIN HCL 0.4 MG CAPSULE PO (20:48)
[2023-12-14] MEDS: ATORVASTATIN 20 MG TABLET PO (20:48)
[2023-12-15] VITALS (24 sets, daily range): BP systolic 135–180; BP diastolic 44–78; PULSE 62–79; RESP 16–18; TEMP 36.6–37.2; O2SAT 92–95
[2023-12-15 06:17] LABS: Hemoglobin 8.4 g/dL (14.0-18.0); Mean Corpuscular Hemoglobin 30.2 pg (26-34); Mean Corpuscular Volume 104.3 fl (80-100); Mean Platelet Volume 11.3 fl (7.4-10.4); Platelet Count Result 165 k/mm3 (150-375); Red Blood Count 2.78 M/mm3 (4.6-6.20); Red Cell Distribution Width 15.3 % (11.5-14.5); White Blood Count 10.6 K/mm3 (4.5-10.0)
[2023-12-15 06:41] LABS: Alanine Aminotransferase 12 U/L (6-50); Albumin Level 3.5 g/dL (3.5-5.1); Alkaline Phosphatase 47 U/L (38-126); Anion Gap 9 mmol/L (8-16); Aspartate Amino Transferase 16 U/L (17-59); Bilirubin,Total 0.3 mg/dL (0.2-1.3); Blood Urea Nitrogen 34 mg/dL (9-20); Calcium 9.8 mg/dL (8.4-10.2); Carbon Dioxide 24 mmol/L (22-30); Chloride 93 mmol/L (98-107); Estimated CRCL calculation 9 ml/min; Estimated Glomerular Filt Rate 8; Glucose 149 mg/dL (65-110); Magnesium 2.1 mg/dL (1.6-2.3); Phosphorus 4.7 mg/dL (2.5-4.5); Sodium 126 mmol/L (137-145)
[2023-12-15 07:17] LABS: Potassium 5.3 mmol/L (3.4-5.0)
[2023-12-15] MEDS: LORATADINE 10 MG TABLET PO (07:39)
[2023-12-15] MEDS: oxyCODONE HCL (*CRX) 5 MG TAB IR PO (07:39)
[2023-12-15] MEDS: carvediloL 25 MG TABLET PO (07:40)
[2023-12-15] MEDS: INSULIN GLARGINE (*BKC) 100 UNITS/ML 6 UNITS SUB-Q (07:40)
[2023-12-15] MEDS: LOSARTAN POTASSIUM 100 MG TABLET PO (07:40)
[2023-12-15] MEDS: PANTOPRAZOLE 40 MG TABLET PO (07:40)
[2023-12-15] MEDS: FINASTERIDE 5 MG TABLET PO (07:40)
[2023-12-15] MEDS: amLODIPine BESYLATE 5 MG TABLET 10 MG PO (07:43)
[2023-12-15] MEDS: SEVELAMER CARBONATE 800 MG TABLET 3200 MG PO (07:43)
[2023-12-15] MEDS: DOCUSATE SODIUM 100 MG CAPSULE PO (07:43)
[2023-12-15 07:49] LABS: Glucose Point of Care 170 mg/dl (65-105)
[2023-12-15] MEDS: SODIUM CHLORIDE 0.9% IV 1,000 ML 999 ML IV CONT (08:27)
--- NOTE | 2023-12-15 11:01 | PM.PNNEP ---
Progress Note: A&P Assessment and Plan (1) End stage renal disease: Code(s): N18.6 - End stage renal disease Status: Deleted Assessment and Plan: HD today continue T/T/S outpatient dialysis schedule while hospitalized follow electrolytes, volume status, and clearance (2) Hematochezia: Code(s): K92.1 - Melena Status: Acute Assessment and Plan: as noted by history felt to be secondary to #3 based on evaluation on last hospitalization GI recommendations noted (3) Internal hemorrhoid, bleeding: Code(s): K64.8 - Other hemorrhoids Status: Acute Assessment and Plan: as noted on last colonoscopy with hospitalization last month felt to be cause of #2 Surgery following - s/p excisional hemorrhoidectomy (4) Anemia: Code(s): D64.9 - Anemia, unspecified Status: Deleted Assessment and Plan: noted drop in hemoglobin by labs done in ER GI recommendations noted PRBC transfusion per protocol Epogen with HD see #2 and #3 follow trend of H/H (5) Essential (primary) hypertension: Code(s): I10 - Essential (primary) hypertension Status: Chronic Assessment and Plan: reasonable control at this time follow trend of hemodynamics (6) IDDM (insulin dependent diabetes mellitus): Status: Chronic Assessment and Plan: follow accu-cheks glycemic control per hospitalists Will continuje to follow. Subjective Date/time seen: 12/14/23 11:01 Interval history: Follow-up for end stage renal disease on hemodialysis. Tolerating hemodialysis treatment at the time of my visit (seen on HD at 10:51AM); unable to see yesterday as was out of room for surgery/surgical intervention -- s/p excisional hemorrhoidectomy x 3 and tolerated this procedure/intervention reasonably well; no apparent distress noted; pain control seems satisfactory. Exam Narrative: General: elderly but WD/WN male in NAD Heart: normal S1 and S2; no rub Lungs: clear to auscultation Abdomen: soft, nontender, nondistended, positive bowel sounds Extremities: no cyanosis or clubbing; no edema Skin: warm and dry Objective Data Vital Signs Vital Signs: Vital Signs Temp Pulse Resp BP Pulse Ox O2 Del Method 12/15/23 11:00 70 166/73 H 12/15/23 10:45 66 155/66 H 12/15/23 10:30 64 156/73 H 12/15/23 10:15 62 153/68 H 12/15/23 10:00 62 152/70 H 12/15/23 09:45 65 141/61 H 12/15/23 09:30 64 158/72 H 12/15/23 09:15 68 165/68 H 12/15/23 09:00 72 164/70 H 12/15/23 08:45 67 167/70 H 12/15/23 08:33 68 155/74 H 12/15/23 07:45 Room Air 12/15/23 07:45 64 12/15/23 08:27 98.4 F 66 18 147/68 H 12/15/23 07:40 63 12/15/23 04:00 98.8 F 70 18 151/63 H 92 12/15/23 04:00 79 12/15/23 00:00 76 12/14/23 20:00 81 12/15/23 00:00 98.9 F 78 18 146/44 H 95 12/14/23 20:00 99.3 F 81 18 149/41 H 93 12/14/23 20:47 85 12/14/23 16:00 57 L Intake/Output Intake/Output: Intake & Output 12/12/23 12/13/23 12/14/23 12/15/23 23:59 23:59 23:59 23:59 Intake Total 5018 597 2127 118 Output Total 150 3300 300 3100 Balance 1190 -2460 742 2982 Meds/Results Medications: Active Medications Generic Name Dose Route Start Last Admin Trade Name [place] PRN Reason Stop Dose Admin Acetaminophen 1,000 mg 12/14/23 11:39 Acetaminophen 500 Mg Tablet PO Q6H PRN Mild Pain (1-3) or Fever Hydrocodone Bitart/Acetaminophen 1 tab 12/14/23 11:39 Hydrocodone/Acetaminophen (*Crx) 5-325 Mg Tablet PO Q4H PRN Pain Rated 4-6 Amlodipine Besylate 10 mg 12/12/23 09:00 12/15/23 07:43 Amlodipine Besylate 5 Mg Tablet PO 10 mg DAILY DAVID Administration Atorvastatin Calcium 20 mg 12/12/23 21:00 12/14/23 20:48 Atorvastatin 20 Mg Tablet PO 20 mg QHS DAVID Administration Ca
--- NOTE | 2023-12-15 11:01 | P.PNNP_ITS ---
Progress Note: A&P Assessment and Plan (1) End stage renal disease: Code(s): N18.6 - End stage renal disease Status: Deleted Assessment and Plan: * HD today * continue T/T/S outpatient dialysis schedule while hospitalized * follow electrolytes, volume status, and clearance (2) Hematochezia: Code(s): K92.1 - Melena Status: Acute Assessment and Plan: * as noted by history * felt to be secondary to #3 based on evaluation on last hospitalization * GI recommendations noted (3) Internal hemorrhoid, bleeding: Code(s): K64.8 - Other hemorrhoids Status: Acute Assessment and Plan: * as noted on last colonoscopy with hospitalization last month * felt to be cause of #2 * Surgery following - s/p excisional hemorrhoidectomy (4) Anemia: Code(s): D64.9 - Anemia, unspecified Status: Deleted Assessment and Plan: * noted drop in hemoglobin by labs done in ER * GI recommendations noted * PRBC transfusion per protocol * Epogen with HD * see #2 and #3 * follow trend of H/H (5) Essential (primary) hypertension: Code(s): I10 - Essential (primary) hypertension Status: Chronic Assessment and Plan: * reasonable control at this time * follow trend of hemodynamics (6) IDDM (insulin dependent diabetes mellitus): Status: Chronic Assessment and Plan: * follow accu-cheks * glycemic control per hospitalists Will continuje to follow. Subjective Date/time seen: 12/14/23 11:01 Interval history: Follow-up for end stage renal disease on hemodialysis. Tolerating hemodialysis treatment at the time of my visit (seen on HD at 10:51AM); unable to see yesterday as was out of room for surgery/surgical intervention -- s/p excisional hemorrhoidectomy x 3 and tolerated this procedure/intervention reasonably well; no apparent distress noted; pain control seems satisfactory. Exam Narrative: General: elderly but WD/WN male in NAD Heart: normal S1 and S2; no rub Lungs: clear to auscultation Abdomen: soft, nontender, nondistended, positive bowel sounds Extremities: no cyanosis or clubbing; no edema Skin: warm and dry Objective Data Vital Signs Vital Signs: Vital Signs Temp Pulse Resp BP Pulse Ox O2 Del Method 12/15/23 11:00 70 166/73 H 12/15/23 10:45 66 155/66 H 12/15/23 10:30 64 156/73 H 12/15/23 10:15 62 153/68 H 12/15/23 10:00 62 152/70 H 12/15/23 09:45 65 141/61 H 12/15/23 09:30 64 158/72 H 12/15/23 09:15 68 165/68 H 12/15/23 09:00 72 164/70 H 12/15/23 08:45 67 167/70 H 12/15/23 08:33 68 155/74 H 12/15/23 07:45 Room Air 12/15/23 07:45 64 12/15/23 08:27 98.4 F 66 18 147/68 H 12/15/23 07:40 63 12/15/23 04:00 98.8 F 70 18 151/63 H 92 12/15/23 04:00 79 12/15/23 00:00 76 12/14/23 20:00 81 12/15/23 00:00 98.9 F 78 18 146/44 H 95 12/14/23 20:00 99.3 F 81 18 149/41 H 93 12/14/23 20:47 85 12/14/23 16:00 57 L Intake/Output Intake/Output: Intake & Output 12/12/23 12/13/23 12/14/23
[2023-12-15] MEDS: EPOETIN ALFA-EPBX 10,000 UNITS/ML VIAL 10000 UNITS IV PUSH (12:27)
--- NOTE | 2023-12-15 13:42 | PM.PNGS ---
Progress Note: A&P Assessment and Plan (1) Internal hemorrhoid, bleeding: Code(s): K64.8 - Other hemorrhoids Status: Acute Assessment and Plan: Doing well on POD#1. OK to discharge from surgical standpoint. Continue local wound care at home. Follow up with Dr. Lopez in 2 weeks. (2) Hematochezia: Code(s): K92.1 - Melena Status: Acute (3) Acute blood loss anemia: Code(s): D62 - Acute posthemorrhagic anemia Status: Acute (4) End-stage renal disease on hemodialysis: Code(s): N18.6 - End stage renal disease; Z99.2 - Dependence on renal dialysis Status: Acute Subjective Subjective Date/Time Seen: 12/15/23 13:42 Interval history: Doing well on POD#1. Pain controlled. No significant bleeding. Seen in dialysis today. Exam GI: Other: Rectal incision not visualized due to patient currently getting dialysis. No significant bleeding reported. Objective Data Vital Signs Vital Signs: Vital Signs - 24 hr 12/14/23 14:32 12/14/23 16:00 12/14/23 20:47 Temperature 36.5 C Pulse Rate 58 L 57 L 85 Respiratory Rate 20 Blood Pressure 133/66 Pulse Oximetry 99 Oxygen Delivery 12/14/23 20:00 12/15/23 00:00 12/14/23 20:00 Temperature 37.4 C 37.2 C Pulse Rate 81 78 81 Respiratory Rate 18 18 Blood Pressure 149/41 H 146/44 H Pulse Oximetry 93 95 Oxygen Delivery 12/15/23 00:00 12/15/23 04:00 12/15/23 04:00 Temperature 37.1 C Pulse Rate 76 79 70 Respiratory Rate 18 Blood Pressure 151/63 H Pulse Oximetry 92 Oxygen Delivery 12/15/23 07:40 12/15/23 08:27 12/15/23 07:45 Temperature 36.9 C Pulse Rate 63 66 64 Respiratory Rate 18 Blood Pressure 147/68 H Pulse Oximetry Oxygen Delivery 12/15/23 07:45 12/15/23 08:33 12/15/23 08:45 Temperature Pulse Rate 68 67 Respiratory Rate Blood Pressure 155/74 H 167/70 H Pulse Oximetry Oxygen Delivery Room Air 12/15/23 09:00 12/15/23 09:15 12/15/23 09:30 Temperature Pulse Rate 72 68 64 Respiratory Rate Blood Pressure 164/70 H 165/68 H 158/72 H Pulse Oximetry Oxygen Delivery 12/15/23 09:45 12/15/23 10:00 12/15/23 10:15 Temperature Pulse Rate 65 62 62 Respiratory Rate Blood Pressure 141/61 H 152/70 H 153/68 H Pulse Oximetry Oxygen Delivery 12/15/23 10:30 12/15/23 10:45 12/15/23 11:00 Temperature Pulse Rate 64 66 70 Respiratory Rate Blood Pressure 156/73 H 155/66 H 166/73 H Pulse Oximetry Oxygen Delivery 12/15/23 11:15 12/15/23 11:30 12/15/23 11:45 Temperature Pulse Rate 69 71 77 Respiratory Rate Blood Pressure 158/61 H 175/72 H 135/55 L Pulse Oximetry Oxygen Delivery 12/15/23 12:00 12/15/23 12:15 12/15/23 12:30 Temperature Pulse Rate 72 77 75 Respiratory Rate Blood Pressure 167/68 H 180/66 H 162/72 H Pulse Oximetry Oxygen Delivery 12/15/23 12:33 Temperature Pulse Rate 75 Respiratory Rate Blood Pressure 177/78 H Pulse Oximetry Oxygen Delivery Intake/Output Intake/Output: Intake & Output 12/12/23 12/13/23 12/14/23 12/15/23 23:59 23:59 23:59 23:59 Intake Total 9108 239 8828 118 Output Total 150 3300 300 100 Balance 1190 -2460 742 18 Meds/Results Medications: Active Medications Generic Name Dose Route Start Last Admin Trade Name Freq PRN Reason Stop Dose Admin Acetaminophen 1,000 mg 12/14/23 11:39 Acetaminophen 500 Mg Tablet PO Q6H PRN Mild Pain (1-3) or Fever Hydrocodone Bitart/Acetaminophen 1 tab 12/14/23 11:39 Hydrocodone/Acetaminophen (*Crx) 5-325 Mg Tablet PO Q4H PRN Pain Rated 4-6 Amlodipine Besylate 10 mg 12/12/23 09:00 12/15/23 07:43 Amlodipine Besylate 5 Mg Tablet PO 10 mg DAILY DAVID Administration Atorvastatin Calcium 20 mg 12/12/23 21:00 12/14/23 20:48 Atorvastatin 20 Mg Tablet PO 20 mg QHS DAVID Administration Carvedilol 25 mg 12/12/23 09:00 12/15/23 07:
--- NOTE | 2023-12-15 14:07 | PM.DS ---
DS: Admitting Diagnosis Discharge Date 12/15/2023 Admitting Diagnosis Hematochezia DS: Discharge Diagnosis Discharge Diagnosis (1) Hematochezia: Code(s): K92.1 - Melena Status: Acute (2) Acute blood loss anemia: Code(s): D62 - Acute posthemorrhagic anemia Status: Acute (3) Obstructive sleep apnea: Code(s): G47.33 - Obstructive sleep apnea (adult) (pediatric) Status: Acute (4) Insulin dependent type 2 diabetes mellitus: Code(s): E11.9 - Type 2 diabetes mellitus without complications; Z79.4 - assisted (current) use of insulin Status: Acute (5) Chronic obstructive pulmonary disease: Code(s): J44.9 - Chronic obstructive pulmonary disease, unspecified Status: Acute (6) Coronary artery disease: Code(s): I25.10 - Atherosclerotic heart disease of [place] coronary artery without angina pectoris Status: Acute (7) Benign prostatic hyperplasia: Code(s): N40.0 - Benign prostatic hyperplasia without lower urinary tract symptoms Status: Acute DS: Summary Hospital Course Hospital Course: This is a 78-year-old male with end-stage renal disease on hemodialysis, coronary artery disease, chronic obstructive pulmonary disease, chronic anemia, hypertension, insulin-dependent diabetes, obstructive sleep apnea, and other comorbidities who presented to the emergency department for evaluation of rectal bleeding.? The patient provides the following history.? He was hospitalized a few weeks ago with similar issues at which time he underwent EGD and colonoscopy with findings of mild gastritis and very large hemorrhoids. It was felt that his rectal bleeding was likely due to the internal hemorrhoids. He was transfused to a stable hemoglobin and was discharged. The last several days he has once again started to pass painless, bright red blood per rectum. He has not been straining to have bowel movements. Vitals remained stable.? GI has been consulted.? Nuclear medicine bleeding scan was performed which did not show any evidence of active gastrointestinal hemorrhage.? Nephrology consulted for inpatient hemodialysis.? General surgery was consulted.? He is status post hemorrhoidectomy. Doing well postoperatively. Completed hemodialysis on this Sunday as per his schedule. He will continue follow-up as an outpatient basis. H&H remained stable Time Spent with Patient Time attestation: Total time spent providing and/or coordinating discharge services: 35 minutes Exam Narrative: General: Well-developed,not in acute distress Neck: Supple. Respiratory: Lungs are clear to auscultation bilaterally. Cardiovascular: Regular rate and rhythm with S1-S2. Gastrointestinal: Abdomen is soft, nontender, and nondistended with positive bowel sounds. Delete Skin: Warm and dry. Extremities: No cyanosis, clubbing, or significant edema. Radial and pedal pulses intact. Neurological: Alert. Cranial nerves 2-12 are grossly intact. No gross focal deficits to casual conversation. Psychiatric: Pleasant and cooperative with normal mood and affect. Judgment and insight intact. DS: Data Data Completed and Pending Pending studies at discharge: Pending at discharge 12/14/23 10:47 Surgical [PTH] Routine Surgical [PTH] Routine Surgical [PTH] Routine Labs on day of discharge: Labs from last 24 hours 12/15/23 12/15/23 12/14/23 07:35 06:04 19:44 WBC 10.6 H RBC 2.78 L Hgb 8.4 L Hct 29.0 L MCV 104.3 H D MCH 30.2 MCHC 29.0 L RDW 15.3 H Plt Count 165 MPV 11.3 H Sodium 126 L Potassium 5.3 H Chloride 93 L Carbon Dioxide 24 Anion Gap 9 BUN 34 H D Creatinine 6.70 H Estim Creat Clear Calc 9 Estimated GFR 8 L Glucose 149 H POC Capillary Glucose 170 H 147 H Calcium 9.8 Phosphorus 4.7 H Magnesium 2.1 Total Bilirubin 0.3 AST 16 L ALT 12 Alkaline Phosphatase 47 Total Protein 6.0 L
== END 2023-12-15 15:21 | disposition home or self-care (01) | DRG 347 ==
LOC: ANHED 13:02 → ANH3MEDSUR 16:43
PROVIDERS: Family Medicine; Internal Medicine Nephrology; Physician Assistant; Surgery; Admitting Provider Internal Medicine; Emergency Provider Student in an Organized Health Care Education/Training Program; PCP Family Medicine; Visit Provider Internal Medicine
PROC: 06BY0ZC Excision of Hemorrhoidal Plexus, Open Approach (ICD-10-PCS; principal; 2023-12-14 10:30)
DX: K64.8 Other hemorrhoids (principal); N18.6 End stage renal disease; D62 Acute posthemorrhagic anemia; I12.0 Hypertensive chronic kidney disease with stage 5 chronic kidney disease or end stage renal disease; E11.22 Type 2 diabetes mellitus with diabetic chronic kidney disease; K29.70 Gastritis, unspecified, without bleeding; G47.33 Obstructive sleep apnea (adult) (pediatric); J44.9 Chronic obstructive pulmonary disease, unspecified; E78.5 Hyperlipidemia, unspecified; I25.10 Atherosclerotic heart disease of native coronary artery without angina pectoris; N40.0 Benign prostatic hyperplasia without lower urinary tract symptoms; I73.9 Peripheral vascular disease, unspecified; Z79.4 Long term (current) use of insulin; Z99.2 Dependence on renal dialysis; Z90.49 Acquired absence of other specified parts of digestive tract; Z95.1 Presence of aortocoronary bypass graft; Z87.891 Personal history of nicotine dependence; Z79.82 Long term (current) use of aspirin; Z68.31 Body mass index [BMI] 31.0-31.9, adult; E66.9 Obesity, unspecified
CPT/HCPCS: 36415; 36430; 78278; 80053; 82948; 83605; 83735; 84100; 85014; 85018; 85025; 85027; 85610; 85730; 86706; 86850; 86900; 86901; 86923; 87340; 88304; 99285; A9270; A9560; G0257; J0171; J0330; J1815; J2371; J2405; J2704; J3010; J7030; J7040; J7050; P9016; Q5105

== ENCOUNTER 2023-12-18 04:32 | Emergency (ER) | payer MEDICARE, OTHER, SELFPAY ==
[2023-12-18 04:37] VITALS: BP 144/53; PULSE 82; RESP 18; TEMP 36.4; O2SAT 95
--- NOTE | 2023-12-18 05:13 | ED.GENADULT ---
HPI - General Adult General Chief complaint: Recheck/Abnormal Lab/Rx Stated complaint: pain and bleeding post surgical hemorrhoids Time Seen by Provider: 12/18/23 04:52 History of Present Illness HPI narrative: This is a 78-year-old male on pod 4 from hemorrhoidectomy performed by Dr. Lopez. Over the weekend patient still had significant pain. He has noted some red blood when he wipes. Patient was prescribed hydrocodone but has only taken 4 pills over the last 4 days. No other symptoms. Related Data Home Medications Medication Instructions Recorded Confirmed aspirin 81 mg tablet,delayed 81 mg PO DAILY 10/31/21 12/11/23 release atorvastatin 20 mg tablet 20 mg PO QHS 10/31/21 12/11/23 carvedilol 25 mg tablet 25 mg PO BID 10/31/21 12/11/23 dulaglutide 1.5 mg/0.5 mL 1.5 mg subcut WEEKLY 10/31/21 12/11/23 subcutaneous pen injector (Trulicity) insulin lispro 100 unit/mL 4 unit subcut .TIDAC 10/31/21 12/11/23 subcutaneous pen loratadine 10 mg tablet (Claritin) 10 mg PO DAILY 10/31/21 12/11/23 losartan 100 mg tablet 100 mg PO DAILY 10/31/21 12/11/23 sildenafil 100 mg tablet (Viagra) 100 mg PO PRN PRN impotence 10/31/21 12/11/23 amlodipine 10 mg tablet 10 mg PO DAILY 11/07/23 12/11/23 finasteride 5 mg tablet 5 mg PO DAILY 11/07/23 12/11/23 insulin glargine 100 unit/mL (3 6 unit subcut DAILY 11/07/23 12/11/23 mL) subcutaneous pen (Lantus Solostar U-100 Insulin) sevelamer HCl 800 mg tablet 3,200 mg PO TID 11/07/23 12/11/23 tamsulosin 0.4 mg capsule 0.4 mg PO QHS 11/07/23 12/11/23 cinacalcet 90 mg PO DAILY 12/12/23 12/12/23 Allergies Allergy/AdvReac Type Severity Reaction Status Date / Time No Known Allergies Allergy Verified 12/14/23 10:08 [facility] Past Medical History Medical History Anemia Benign prostatic hyperplasia Chronic obstructive pulmonary disease Coronary artery disease Dyslipidemia End-stage renal disease on hemodialysis Environmental allergies Essential (primary) hypertension Gastritis History of colon polyps Insulin dependent type 2 diabetes mellitus Internal hemorrhoid, bleeding Obstructive sleep apnea Peripheral vascular disease Vitamin D deficiency Surgical History Surgical History Arteriovenous fistula of left upper extremity (~2017) History of appendectomy (~1962) History of coronary artery bypass graft (~2013) S/P peripheral artery angioplasty (~03/2023) status post balloon angioplasty of bilateral common and external iliac arteries status post left iliofemoral endarterectomy Family History Family History Mother Diabetes mellitus Acute myocardial infarction Family history of congestive heart failure Father Hypertension Social History Social History Social History: Surrogate medical decision maker: Wilian Morrissey, sibling. Code status: Full code. Smoking packs per day: 10 Smoking cigarettes per day: 200.0 Years smoked: 10 Smoking pack-years: 100.00 Smoking status: Former smoker Tobacco type: cigarettes Second hand tobacco smoke exposure: No Smoking end date: 10/22/13 Alcohol intake: never Alcohol use details: Maybe 1 per year Substance use: never Substance use type: does not use Do You Feel Safe in your Home?: Yes Lack of Transportation: No Lack of Food: Never True Current Housing: I Have Housing Concerned About Future Housing: No Difficulty Paying Gas/Electric Bills: No Difficulty Paying for Meds: No Currently Unemployed: No Education: Associate Degree Difficulty w/ Childcare or Family Care: No Living arrangements: with family Occupation/Education: retired Additional occupation/education comments: Retired from [employer]. Spiritual care concerns: No Agree to blood products: Yes
[2023-12-18] MEDS: HYDROmorphone HCL INJ (*CRX) 1 MG/ML SYR 0.5 MG IV PUSH (05:27)
[2023-12-18] MEDS: ACETAMINOPHEN 500 MG TABLET 1000 MG PO (05:27)
[2023-12-18 05:30] VITALS: BP 134/57; PULSE 70; RESP 20; O2SAT 97
[2023-12-18 05:34] LABS: Basophils Percent Auto 0.6 % (0.2-1.2); Eosinophils Absolute Auto 0.2 K/mm3 (0-0.3); Eosinophils Percent Auto 2.1 % (0-4.4); Hematocrit 25.9 % (42.0-52.0); Hemoglobin 7.8 g/dL (14.0-18.0); Immature Granulocyte Absolute 0.09 K/mm3 (0.00-0.031); Immature Granulocyte Percent A 1.2 % (0-0.5); Lymphocytes Absolute Auto 0.37 K/mm3 (0.9-3.2); Lymphocytes Percent Auto 5.1 % (18.3-44.2); Mean Corpuscular HGB Conc 30.1 g/dl (32-36); Mean Corpuscular Hemoglobin 29.5 pg (26-34); Mean Corpuscular Volume 98.1 fl (80-100); Monocytes Absolute Auto 0.7 K/mm3 (0.1-0.6); Monocytes Percent Auto 9.1 % (2.6-8.5); Neutrophils Percent Auto 81.9 % (45.5-73.1); Platelet Count Result 197 k/mm3 (150-375); Red Blood Count 2.64 M/mm3 (4.6-6.20); Red Cell Distribution Width 15.5 % (11.5-14.5); White Blood Count 7.3 K/mm3 (4.5-10.0)
[2023-12-18 05:48] LABS: Alanine Aminotransferase 11 U/L (6-50); Albumin Level 3.4 g/dL (3.5-5.1); Alkaline Phosphatase 43 U/L (38-126); Anion Gap 8 mmol/L (8-16); Aspartate Amino Transferase 16 U/L (17-59); Bilirubin,Total 0.4 mg/dL (0.2-1.3); Blood Urea Nitrogen 46 mg/dL (9-20); Calcium 10.1 mg/dL (8.4-10.2); Carbon Dioxide 27 mmol/L (22-30); Chloride 100 mmol/L (98-107); Estimated CRCL calculation 8 ml/min; Estimated Glomerular Filt Rate 6; Glucose 90 mg/dL (65-110); Potassium 4.3 mmol/L (3.4-5.0); Sodium 135 mmol/L (137-145)
== END 2023-12-18 06:26 | disposition home or self-care (01) ==
PROVIDERS: Emergency Provider Emergency Medicine; PCP Family Medicine
DX: G89.18 Other acute postprocedural pain (principal); I12.0 Hypertensive chronic kidney disease with stage 5 chronic kidney disease or end stage renal disease; E11.22 Type 2 diabetes mellitus with diabetic chronic kidney disease; N18.6 End stage renal disease; Z99.2 Dependence on renal dialysis; J44.9 Chronic obstructive pulmonary disease, unspecified; I25.10 Atherosclerotic heart disease of native coronary artery without angina pectoris; E11.51 Type 2 diabetes mellitus with diabetic peripheral angiopathy without gangrene; I73.9 Peripheral vascular disease, unspecified; E55.9 Vitamin D deficiency, unspecified; E78.5 Hyperlipidemia, unspecified; N40.0 Benign prostatic hyperplasia without lower urinary tract symptoms; G47.33 Obstructive sleep apnea (adult) (pediatric); Z95.1 Presence of aortocoronary bypass graft; Z98.61 Coronary angioplasty status; Z86.010 Personal history of colon polyps; Z87.891 Personal history of nicotine dependence; Z79.4 Long term (current) use of insulin; Z79.82 Long term (current) use of aspirin; Z79.85 Long-term (current) use of injectable non-insulin antidiabetic drugs
CPT/HCPCS: 36415; 80053; 85025; 96374; 99284; A9270; J1170

== ENCOUNTER 2024-01-01 11:47 | Emergency (ER) | payer MEDICARE, OTHER, SELFPAY ==
[2024-01-01] VITALS (14 sets, daily range): BP systolic 93–150; BP diastolic 37–65; PULSE 57–69; RESP 10–18; TEMP 36.4–36.6; O2SAT 98–100
--- NOTE | ~2024-01-01 | CT_ITS ---
EXAMINATION: CT abdomen pelvis wo con DATE: 01/01/2024 13:07 INDICATION: Suprapubic pain TECHNIQUE: Computed tomography (CT) of the abdomen and pelvis was performed without intravenous contr ast. Automated exposure control and iterative reconstruction technique were employed. The dose-length product was 1160.49 mGy-cm. COMPARISON: 01/21/2014 FINDINGS: Mild discoid atelectasis at the lingula. Heart size is normal. Atherosclerotic coronary artery calcif ications and mitral annular calcification. No pericardial or pleural effusion. Cholecystectomy clips the gallbladder fossa. 1.2 cm low-attenuation cyst in the left hepatic lobe. Pancreas, spleen and maría elena ateral adrenal glands are normal. Moderate bilateral renal atrophy. 1.3 cm exophytic cyst at the lowe r pole of the right kidney. There is calcified atherosclerosis of the aorta and many of the other art eries. Bowels are unremarkable with no abnormal wall thickening or obstruction. Bladder is normal. Pr ostatomegaly measuring 6.1 x 5.3 cm. No free intraperitoneal gas or fluid. No pathologically enlarged abdominal or pelvic lymphadenopathy. With postoperative scarring at the left inguinal region. There are small bilateral fat-containing inguinal hernias. Severe lumbar spondylosis. IMPRESSION: 1. No acute intra-abdominal/pelvic process. 2. Moderate bilateral renal atrophy. 3. Prostatomegaly. 4. Small bilateral fat-containing inguinal hernias. Reviewed, dictated and finalized at location L.
--- NOTE | 2024-01-01 12:49 | ED.GENADULT ---
HPI - General Adult General Chief complaint: Unspecified Stated complaint: rectal bleeding Time Seen by Provider: 01/01/24 12:02 History of Present Illness HPI narrative: 78-year-old male with a history of ESRD on dialysis (T,Th,S), recent hemorrhoidectomy presenting with rectal bleeding. Patient was at dialysis and had to have a bowel movement after his session. States that he lost his balance while on the commode and fell to the floor. Did not strike his head or lose consciousness. States that they were concerned that he was bleeding. He states that he does not believe he was bleeding from his rectum, he ate a caputo pie yesterday and he thinks that is why his stool may have been red. He was also bleeding from his fistula which he states is a rather common occurrence for him. Related Data Home Medications Medication Instructions Recorded Confirmed aspirin 81 mg tablet,delayed 81 mg PO DAILY 10/31/21 12/26/23 release atorvastatin 20 mg tablet 20 mg PO QHS 10/31/21 12/26/23 carvedilol 25 mg tablet 25 mg PO BID 10/31/21 12/26/23 dulaglutide 1.5 mg/0.5 mL 1.5 mg subcut WEEKLY 10/31/21 12/26/23 subcutaneous pen injector (Trulicity) insulin lispro 100 unit/mL 4 unit subcut .TIDAC 10/31/21 12/26/23 subcutaneous pen loratadine 10 mg tablet (Claritin) 10 mg PO DAILY 10/31/21 12/26/23 losartan 100 mg tablet 100 mg PO DAILY 10/31/21 12/26/23 sildenafil 100 mg tablet (Viagra) 100 mg PO PRN PRN impotence 10/31/21 12/26/23 amlodipine 10 mg tablet 10 mg PO DAILY 11/07/23 12/26/23 finasteride 5 mg tablet 5 mg PO DAILY 11/07/23 12/26/23 insulin glargine 100 unit/mL (3 6 unit subcut DAILY 11/07/23 12/26/23 mL) subcutaneous pen (Lantus Solostar U-100 Insulin) sevelamer HCl 800 mg tablet 3,200 mg PO TID 11/07/23 12/26/23 tamsulosin 0.4 mg capsule 0.4 mg PO QHS 11/07/23 12/26/23 cinacalcet 90 mg PO DAILY 12/12/23 12/26/23 Allergies Allergy/AdvReac Type Severity Reaction Status Date / Time No Known Allergies Allergy Verified 01/01/24 11:59 Review of Systems Review of Systems: All systems reviewed & are unremarkable except as noted in HPI and below PMFSH Past Medical History Medical History Anemia Benign prostatic hyperplasia Chronic obstructive pulmonary disease Coronary artery disease Dyslipidemia End-stage renal disease on hemodialysis Environmental allergies Essential (primary) hypertension Gastritis History of colon polyps Insulin dependent type 2 diabetes mellitus Internal hemorrhoid, bleeding Obstructive sleep apnea Peripheral vascular disease Vitamin D deficiency Surgical History Surgical History Arteriovenous fistula of left upper extremity (~2017) History of appendectomy (~1962) History of coronary artery bypass graft (~2013) History of hemorrhoidectomy Anorectal evaluation under anesthesia and excisional hemorrhoidectomy x3 12/14/23 SAW S/P peripheral artery angioplasty (~03/2023) status post balloon angioplasty of bilateral common and external iliac arteries status post left iliofemoral endarterectomy Family History Family History Mother Diabetes mellitus Acute myocardial infarction Family history of congestive heart failure Father Hypertension Social History Social History Social History: Surrogate medical decision maker: Wilian Finleyn, sibling. Code status: Full code. Smoking packs per day: 10 Smoking cigarettes per day: 200.0 Years smoked: 10 Smoking pack-years: 100.00 Smoking status: Former smoker Tobacco type: cigarettes Second hand tobacco smoke exposure: No Smoking end date: 10/22/13 Alcohol intake: never Alcohol use details: Maybe 1 per year Substance use: never Substance use type: does not use D
[2024-01-01 13:41] LABS: Basophils Absolute Auto 0.1 K/mm3 (0.0-0.1); Eosinophils Absolute Auto 0.2 K/mm3 (0-0.3); Eosinophils Percent Auto 2.1 % (0-4.4); Hematocrit 30.2 % (42.0-52.0); Hemoglobin 9.3 g/dL (14.0-18.0); Immature Granulocyte Absolute 0.06 K/mm3 (0.00-0.031); Immature Granulocyte Percent A 0.9 % (0-0.5); Lymphocytes Absolute Auto 1.19 K/mm3 (0.9-3.2); Mean Corpuscular HGB Conc 30.8 g/dl (32-36); Mean Corpuscular Volume 94.1 fl (80-100); Mean Platelet Volume 10.6 fl (7.4-10.4); Monocytes Absolute Auto 0.8 K/mm3 (0.1-0.6); Monocytes Percent Auto 11.3 % (2.6-8.5); Neutrophils Absolute Auto 4.7 K/mm3 (1.3-6.7); Neutrophils Percent Auto 67.7 % (45.5-73.1); Platelet Count Result 300 k/mm3 (150-375); Red Blood Count 3.21 M/mm3 (4.6-6.20); Red Cell Distribution Width 15.2 % (11.5-14.5)
[2024-01-01 13:51] LABS: Prothrombin Time 13.7 Seconds (11.1-14.7)
[2024-01-01 13:52] LABS: Partial Thromboplastin Time 38.3 Seconds (22.3-36.8)
[2024-01-01 13:55] LABS: Alanine Aminotransferase 11 U/L (6-50); Albumin Level 3.9 g/dL (3.5-5.1); Alkaline Phosphatase 69 U/L (38-126); Anion Gap 5 mmol/L (8-16); Aspartate Amino Transferase 18 U/L (17-59); Bilirubin,Total 0.4 mg/dL (0.2-1.3); Blood Urea Nitrogen 13 mg/dL (9-20); Calcium 10.2 mg/dL (8.4-10.2); Carbon Dioxide 34 mmol/L (22-30); Chloride 95 mmol/L (98-107); Estimated CRCL calculation 14 ml/min; Estimated Glomerular Filt Rate 13; Glucose 112 mg/dL (65-110); Lipase 67 U/L (23-300); Potassium 4.1 mmol/L (3.4-5.0); Sodium 134 mmol/L (137-145)
--- NOTE | 2024-01-01 14:21 | PC.NURSE ---
dialysis clamps to left biceps removed. No bleeding noted.
--- NOTE | 2024-01-01 14:37 | PC.NURSE ---
Pt states he is unable to give a urine sample at this time.
== END 2024-01-01 15:32 | disposition home or self-care (01) ==
PROVIDERS: Emergency Provider Emergency Medicine; PCP Family Medicine
DX: K62.5 Hemorrhage of anus and rectum (principal); N18.6 End stage renal disease; E11.22 Type 2 diabetes mellitus with diabetic chronic kidney disease; Z99.2 Dependence on renal dialysis; J44.9 Chronic obstructive pulmonary disease, unspecified; E11.51 Type 2 diabetes mellitus with diabetic peripheral angiopathy without gangrene; I73.9 Peripheral vascular disease, unspecified; N40.0 Benign prostatic hyperplasia without lower urinary tract symptoms; I25.10 Atherosclerotic heart disease of native coronary artery without angina pectoris; E78.5 Hyperlipidemia, unspecified; G47.33 Obstructive sleep apnea (adult) (pediatric); Z86.010 Personal history of colon polyps; Z87.891 Personal history of nicotine dependence; Z95.1 Presence of aortocoronary bypass graft; Z98.62 Peripheral vascular angioplasty status; K40.20 Bilateral inguinal hernia, without obstruction or gangrene, not specified as recurrent; N26.1 Atrophy of kidney (terminal); Z79.82 Long term (current) use of aspirin; Z79.4 Long term (current) use of insulin; Z79.85 Long-term (current) use of injectable non-insulin antidiabetic drugs
CPT/HCPCS: 36415; 74176; 80053; 83690; 85025; 85610; 85730; 99284

== ENCOUNTER 2024-09-03 14:04 | Outpatient (CLI) | payer SELFPAY ==
--- NOTE | ~2024-09-03 | XR_ITS ---
XR cervical spine 4-5V Ordering provider: Radha Carrion MD History: . M54.2 - Cervicalgia . Comparison: None. FINDINGS: VERTEBRAL BODIES: Destructive changes are seen in C3, C3-4 and C5.. No visible fracture or subluxatio n. The dens is intact. DISK SPACES: Narrowing of the disc C3-C4, and C4-C5. Multilevel facet joint disease. Multilevel uncov ertebral joint osteoarthritic changes. PARASPINOUS SOFT TISSUES: No prevertebral soft tissue swelling. IMPRESSION: Degenerative disc changes at the level of C3-C4 and C4-C5. Further evaluation with MRI is advised to exclude osteomyelitis or discitis. Reviewed, dictated and finalized at location A. [facility] [employer] IMPRESSION: Degenerative disc changes at the level of C3-C4 and C4-C5. Further evaluation w ith MRI is advised to exclude osteomyelitis or discitis.
== END 2024-09-03 14:05 | disposition home or self-care (01) ==
PROVIDERS: PCP Family Medicine; Visit Provider Family Medicine
DX: M50.321 Other cervical disc degeneration at C4-C5 level (principal)
CPT/HCPCS: 72050

== ENCOUNTER 2024-10-21 09:46 | Inpatient (IN) | payer MEDICARE, OTHER, SELFPAY ==
[2024-10-21] VITALS (32 sets, daily range): BP systolic 111–172; BP diastolic 51–90; PULSE 59–100; RESP 15–22; TEMP 36.5–37.1; O2SAT 94–98; BMI 30.4
--- NOTE | ~2024-10-21 | XR_ITS ---
EXAMINATION: XR chest 1V portable DATE: 10/22/2024 13:10 INDICATION: CODE BLUE. Cough and weakness. TECHNIQUE: frontal view of the chest was obtained. COMPARISON: Chest radiograph dated 10/21/2024 FINDINGS: Persistent opacities in the bilateral mid and lower lung zones. No pleural effusion or pneumothorax. Heart size is within normal limits for AP technique. Median sternotomy wires and mediastinal surgical clips are seen, likely from prior coronary artery bypass grafting. Left subclavian vascular stenting . IMPRESSION: 1. Persistent opacities in the bilateral mid and lower lung zones which could represent mild pulmonar y edema, pneumonia, atelectasis or some combination thereof. Reviewed, dictated and finalized at location A. [facility] IMPRESSION: 1. Persistent opacities in the bilateral mid and lower lung zones which could r epresent mild pulmonary edema, pneumonia, atelectasis or some combination there of.
--- NOTE | ~2024-10-21 | XR_ITS ---
Portable chest x-ray Comparison: 10/25/2023 Clinical History: Syncope Findings: There is moderate central pulmonary edema pattern and central congestive change. Cardiome diastinal silhouette is stable. Bones and soft tissues are unremarkable. Impression: Moderate central pulmonary edema pattern. Reviewed, dictated and finalized at [facility]. 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
--- NOTE | 2024-10-21 09:56 | ECG_ITS ---
Test Date: 2024-10-21 10:01:22 Measurements Intervals [place] Rate: 63 P: 0 SC: 0 QRS: -30 QRSD: 158 T: -11 QT: 488 QTc: 502 Interpretive Statements ATRIAL FIBRILLATION WITH ABERRANT CONDUCTION OR VENTRICULAR PREMATURE COMPLEXES INDETERMINATE AXIS RIGHT BUNDLE BRANCH BLOCK [120+ ms QRS DURATION, UPRIGHT V1, 40+ ms S IN I/aVL/V4/V5/V6] No previous ECG available for comparison Electronically Signed On 10-21-2024 22:46:35 [facility] by Gustavo Mccoy M.D.
[2024-10-21 10:15] LABS: Basophils Absolute Auto 0.1 K/mm3 (0.0-0.1); Basophils Percent Auto 1.1 % (0.2-1.2); Eosinophils Absolute Auto 0.2 K/mm3 (0-0.3); Eosinophils Percent Auto 2.6 % (0-4.4); Hematocrit 25.2 % (42.0-52.0); Hemoglobin 7.6 g/dL (14.0-18.0); Immature Granulocyte Absolute 0.04 K/mm3 (0.00-0.031); Immature Granulocyte Percent A 0.7 % (0-0.5); Lymphocytes Absolute Auto 0.54 K/mm3 (0.9-3.2); Lymphocytes Percent Auto 9.5 % (18.3-44.2); Mean Corpuscular HGB Conc 30.2 g/dl (32-36); Mean Corpuscular Volume 102.9 fl (80-100); Mean Platelet Volume 10.4 fl (7.4-10.4); Monocytes Absolute Auto 0.7 K/mm3 (0.1-0.6); Monocytes Percent Auto 11.8 % (2.6-8.5); Neutrophils Absolute Auto 4.2 K/mm3 (1.3-6.7); Neutrophils Percent Auto 74.3 % (45.5-73.1); Nucleated Red Blood Cells Perc 0.4 % (0.0-0.2); Platelet Count Result 211 k/mm3 (150-375); Red Blood Count 2.45 M/mm3 (4.6-6.20); White Blood Count 5.7 K/mm3 (4.5-10.0)
[2024-10-21 11:00] LABS: Alanine Aminotransferase 9 U/L (6-50); Albumin Level 3.1 g/dL (3.5-5.1); Alkaline Phosphatase 54 U/L (38-126); Anion Gap 1 mmol/L (4-12); Aspartate Amino Transferase 14 U/L (17-59); Bilirubin,Total 0.5 mg/dL (0.2-1.3); Blood Urea Nitrogen 26 mg/dL (9-20); Calcium 8.8 mg/dL (8.4-10.2); Carbon Dioxide 36 mmol/L (22-30); Chloride 97 mmol/L (98-107); Estimated CRCL calculation 15 ml/min; Estimated Glomerular Filt Rate 15; Glucose 91 mg/dL (65-110); Potassium 3.4 mmol/L (3.4-5.0); Sodium 134 mmol/L (137-145)
[2024-10-21] MEDS: IPRATROPIUM 0.5 MG/ALBUTEROL SULFATE 2.5 MG AMPUL.NEB 3 ML INHALATION (13:06)
[2024-10-21 13:52] LABS: NT Pro B Type Natriuretic Pept > 30000 pg/mL (19.9-100)
--- NOTE | 2024-10-21 14:05 | ED.GENADULT ---
HPI - General Adult General Chief complaint: Syncope Stated complaint: weakness/lethargy Time Seen by Provider: 10/21/24 12:07 History of Present Illness HPI narrative: Patient is a 79-year-old male who presents ER after having a syncopal episode. He was receiving his dialysis when it occurred. He also is found to be newly hypoxic afterwards. Denies chest pain but does endorse shortness of breath. He sees Dr. Tang. Reports history of blood transfusion couple months ago. Denies dark stools. Related Data Home Medications ?Medication ?Instructions ?Recorded ?Confirmed ?Last Taken ?Type aspirin 81 mg tablet,delayed 81 mg PO DAILY 10/31/21 10/21/24 10/21/24 History release atorvastatin 20 mg tablet 20 mg PO QHS 10/31/21 10/21/24 10/21/24 History carvedilol 25 mg tablet 25 mg PO BID 10/31/21 10/21/24 10/21/24 History dulaglutide 1.5 mg/0.5 mL 1.5 mg subcut WEEKLY 10/31/21 10/21/24 10/21/24 History subcutaneous pen injector (Trulicity) insulin lispro 100 unit/mL 4 unit subcut .TIDAC 10/31/21 10/21/24 10/21/24 History subcutaneous pen loratadine 10 mg tablet (Claritin) 10 mg PO DAILY 10/31/21 10/21/24 10/21/24 History losartan 100 mg tablet 100 mg PO DAILY 10/31/21 10/21/24 10/21/24 History amlodipine 10 mg tablet 10 mg PO DAILY 11/07/23 10/21/24 10/21/24 History insulin glargine 100 unit/mL (3 6 unit subcut DAILY 11/07/23 10/21/24 10/21/24 History mL) subcutaneous pen (Lantus Solostar U-100 Insulin) sevelamer HCl 800 mg tablet 3,200 mg PO TID 11/07/23 10/21/24 10/21/24 History tamsulosin 0.4 mg capsule 0.4 mg PO QHS 11/07/23 10/21/24 10/21/24 History cinacalcet 90 mg PO DAILY 12/12/23 10/21/24 10/21/24 History Allergies Allergy/AdvReac Type Severity Reaction Status Date / Time No Known Allergies Allergy Verified 10/07/24 15:46 Review of Systems Review of Systems: All systems reviewed & are unremarkable except as noted in HPI and below Constitutional: Constitutional: Reports no additional constitutional complaints ENT: Reports system reviewed and no additional complaints, except as documented Cardiovascular: Cardiovascular: Reports no additional cardiovascular complaints Respiratory: Respiratory: Reports no additional respiratory complaints Gastrointestinal: Gastrointestinal: Reports no additional gastrointestinal complaints Neurologic: Reports system reviewed and no additional complaints, except as documented [facility] Past Medical History Medical History Obstructive sleep apnea Insulin dependent type 2 diabetes mellitus Chronic obstructive pulmonary disease Coronary artery disease Benign prostatic hyperplasia Peripheral vascular disease Internal hemorrhoid, bleeding Gastritis Anemia End-stage renal disease on hemodialysis History of colon polyps Environmental allergies Vitamin D deficiency Dyslipidemia Essential (primary) hypertension Surgical History Surgical History History of hemorrhoidectomy Anorectal evaluation under anesthesia and excisional hemorrhoidectomy x3 12/14/23 SAW S/P peripheral artery angioplasty (~03/2023) status post balloon angioplasty of bilateral common and external iliac arteries status post left iliofemoral endarterectomy Arteriovenous fistula of left upper extremity (~2017) History of appendectomy (~1962) History of coronary artery bypass graft (~2013) Family History Family History Mother Diabetes mellitus Acute myocardial infarction Family history of congestive heart failure Father Hypertension Social History Social History Social History: Surrogate medical decision maker: Wilian Morrissey, sibling. Code status: Full code. Caffeine- daily Smoking packs per day: 10 Smoking cigarettes per day: 200.0 Years smoked: 10 Smoking pack-years: 100.00 Smoking status: Former smoker Tobacco type: cigarettes and pipe Second hand tobacco smoke exposure: No Smoking end date: 10/22/13 Alcohol intake: current Drinks per week: 1 Alcohol use details: Maybe 2-3 per year Substance use: former Substance use type: prescription drug Do You Feel Safe in your Home?: Yes Lack of Transportation: No Lack of Food: Never True Current Housing: I Have Housing Concerned About Future Housing: No Difficulty Paying Gas/Electric Bills: No Difficulty Paying for Meds: No Currently Unemployed: No Education: Decline to Answer Difficulty w/ Childcare or Family Care: No Living arrangements: with family Occupation/Education: retired Additional occupation/education comments: Retired from the [employer]. Spiritual care concerns: No Agree to blood products: Yes Exam Narrative: GENERAL: Well-appearing, well-nourished, and in no acute distress. HEAD: Normocephalic, atraumatic. ENT: Mucous membranes moist. NECK: Supple. CHEST: Coarse wheezing bilaterally.. No respiratory distress. HEART: Regular rate and rhythm. Normal peripheral pulses. ABDOMEN: Soft, nontender, nondistended. Firm stool in the rectum, no gross blood, faint occult blood, normal colored stool EXTREMITIES: Normal range of motion. 1+ edema. SKIN: Warm, dry, no rash. NEURO: Alert and oriented x3. PSYCH: Normal mood and affect. Course Course Emergency Course: Discussed with Dr. Tang. Recommends 80 of Lasix b.i.d.. Would also recommend contacting his partner since he is not taking call today. Patient require admission with hospitalization. patient has a visitor is concerned about bleeding per rectum even though patient is not worried. Occult positive but stools firm a normal appearance. Chart review shows patient has history of gastritis and also history of hemorrhoids. He has no previous history of hemorrhage from the abdomen. He is not on blood thinners. Feel appropriate to treat with transfusion PPI with outpatient follow-up with GI and no emergent procedure. Vital Signs Vital signs: Vital Signs Temperature 97.7 F 10/21/24 09:52 Pulse Rate 68 10/21/24 09:52 Respiratory Rate 15 10/21/24 09:52 Blood Pressure 111/58 L 10/21/24 09:52 Pulse Oximetry 96 10/21/24 09:52 Oxygen Delivery Nasal Cannula 10/21/24 09:52 Oxygen Flow Rate 3 10/21/24 09:52 Temperature 98.3 F 10/21/24 19:47 Pulse Rate 85 10/21/24 19:47 Respiratory Rate 22 H 10/21/24 19:47 Blood Pressure 158/72 H 10/21/24 19:47 Pulse Oximetry 94 10/21/24 19:47 Oxygen Delivery Nasal Cannula 10/21/24 12:34 Oxygen Flow Rate 3 10/21/24 16:18 Medical Decision Making Vital Signs Vital Signs: Vital Signs Temperature 97.7 F 10/21/24 09:52 Pulse Rate 68 10/21/24 09:52 Respiratory Rate 15 10/21/24 09:52 Blood Pressure 111/58 L 10/21/24 09:52 Pulse Oximetry 96 10/21/24 09:52 Oxygen Delivery Nasal Cannula 10/21/24 09:52 Oxygen Flow Rate 3 10/21/24 09:52 Temperature 98.3 F 10/21/24 19:47 Pulse Rate 85 10/21/24 19:47 Respiratory Rate 22 H 10/21/24 19:47 Blood Pressure 158/72 H 10/21/24 19:47 Pulse Oximetry 94 10/21/24 19:47 Oxygen Delivery Nasal Cannula 10/21/24 12:34 Oxygen Flow Rate 3 10/21/24 16:18 Lab Data 10/21/24 21:55 10/21/24 10:35 Labs: Lab Results 10/21/24 10/21/24 10/21/24 Range/Units 10:02 10:35 13:45 WBC 5.7 (4.5-10.0) K/mm3 RBC 2.45 L (4.6-6.20) M/mm3 Hgb 7.6 L (14.0-18.0) g/dL Hct 25.2 L (42.0-52.0) % MCV 102.9 H (80-100) fl MCH 31.0 (26-34) pg MCHC 30.2 L (32-36) g/dl RDW 18.0 H (11.5-14.5) % Plt Count 211 (150-375) k/mm3 MPV 10.4 (7.4-10.4) fl Immature Gran % (Auto) 0.7 H (0-0.5) % Neut % (Auto) 74.3 H (45.5-73.1) % Lymph % (Auto) 9.5 L (18.3-44.2) % [place] % (Auto) 11.8 H (2.6-8.5) % Eos % (Auto) 2.6 (0-4.4) % Baso % (Auto) 1.1 (0.2-1.2) % Lymph # (Auto) 0.54 L (0.9-3.2) K/mm3 [place] # (Auto) 0.7 H (0.1-0.6) K/mm3 Eos # (Auto) 0.2 (0-0.3) K/mm3 Baso # (Auto) 0.1 (0.0-0.1) K/mm3 Abs Immat Gran (auto) 0.04 H (0.00-0.031) K/mm3 Absolute Neuts (auto) 4.2 (1.3-6.7) K/mm3 Absolute Nucleated RBC 0.020 H (0.0-0.012) K/mm3 Nucleated RBC % 0.4 H (0.0-0.2) % Sodium 134 L (137-145) mmol/L Potassium 3.4 (3.4-5.0) mmol/L Chloride 97 L (98-107) mmol/L Carbon Dioxide 36 H (22-30) mmol/L Anion Gap 1 L (4-12) mmol/L BUN 26 H D (9-20) mg/dL Creatinine 4.00 H (0.7-1.3) mg/dL Estim Creat Clear Calc 15 ml/min Estimated GFR 15 L (59 - ) Glucose 91 (65-110) mg/dL Calcium 8.8 (8.4-10.2) mg/dL Total Bilirubin 0.5 (0.2-1.3) mg/dL AST 14 L (17-59) U/L ALT 9 (6-50) U/L Alkaline Phosphatase 54 (38-126) U/L NT-Pro-B Natriuret Pep > 51538 H (19.9-100) pg/mL Total Protein 6.0 L (6.3-8.2) g/dL Albumin 3.1 L (3.5-5.1) g/dL Influenza A (RT-PCR) Negative (Negative) Influenza B (RT-PCR) Negative (Negative) RSV (RT-PCR) Negative (Negative) SARS-CoV-2 RNA (RT-PCR) Negative (Negative) Blood Type Antibody Screen Crossmatch 10/21/24 Range/Units 13:53 WBC (4.5-10.0) K/mm3 RBC (4.6-6.20) M/mm3 Hgb (14.0-18.0) g/dL Hct (42.0-52.0) % MCV (80-100) fl MCH (26-34) pg MCHC (32-36) g/dl RDW (11.5-14.5) % Plt Count (150-375) k/mm3 MPV (7.4-10.4) fl Immature Gran % (Auto) (0-0.5) % Neut % (Auto) (45.5-73.1) % Lymph % (Auto) (18.3-44.2) % [place] % (Auto) (2.6-8.5) % Eos % (Auto) (0-4.4) % Baso % (Auto) (0.2-1.2) % Lymph # (Auto) (0.9-3.2) K/mm3 [place] # (Auto) (0.1-0.6) K/mm3 Eos # (Auto) (0-0.3) K/mm3 Baso # (Auto) (0.0-0.1) K/mm3 Abs Immat Gran (auto) (0.00-0.031) K/mm3 Absolute Neuts (auto) (1.3-6.7) K/mm3 Absolute Nucleated RBC (0.0-0.012) K/mm3 Nucleated RBC % (0.0-0.2) % Sodium (137-145) mmol/L Potassium (3.4-5.0) mmol/L Chloride (98-107) mmol/L Carbon Dioxide (22-30) mmol/L Anion Gap (4-12) mmol/L BUN (9-20) mg/dL Creatinine (0.7-1.3) mg/dL Estim Creat Clear Calc ml/min Estimated GFR (59 - ) Glucose (65-110) mg/dL Calcium (8.4-10.2) mg/dL Total Bilirubin (0.2-1.3) mg/dL AST (17-59) U/L ALT (6-50) U/L Alkaline Phosphatase (38-126) U/L NT-Pro-B Natriuret Pep (19.9-100) pg/mL Total Protein (6.3-8.2) g/dL Albumin (3.5-5.1) g/dL Influenza A (RT-PCR) (Negative) Influenza B (RT-PCR) (Negative) RSV (RT-PCR) (Negative) SARS-CoV-2 RNA (RT-PCR) (Negative) Blood Type O Positive Antibody Screen Negative Crossmatch See Detail Discharge Plan Discharge Clinical Impression: Acute exacerbation of CHF (congestive heart failure), Anemia, Hypoxia Patient Disposition: Still a Patient Condition: Guarded Prognosis
[2024-10-21] MEDS: FUROSEMIDE INJ 100 MG/10 ML VIAL 80 MG IV PUSH (14:14)
[2024-10-21 14:37] LABS: Influenza A QL RT-PCR Negative (Negative); Influenza B QL RT-PCR Negative (Negative); RSV RNA, RT-PCR Negative (Negative); SARS-CoV-2 RNA PCR Negative (Negative)
--- NOTE | 2024-10-21 14:54 | P.HP_ITS ---
H&P: HPI History of Present Illness Date/Time: 10/21/24 14:54 Chief Complaint: Weakness and lethargy Narrative: 79-year-old male past medical history of diabetes, CAD, COPD, anemia, and end- stage renal disease on hemodialysis presents the hospital after syncope. Patient was in dialysis when he passed out. He was found to be hypoxic with complaints of shortness of breath. HPI is limited due to patient stating this morning's events were little fuzzy. He denies history of pulmonary edema. In the ED patient was found to be anemic at 7.6 baseline around 8.5, hyponatremia 134, creatinine 4.0, GFR 15, BUN at 26, carbon dioxide 36, BNP over 30,000, influenza A/B, RSV, COVID negative. Chest x-ray shows moderate central pulmonary edema. EKG shows atrial fibrillation rate of 63. Dr. Tang consulted and plans for dialysis tonight. No signs of acute bleeding, digital exam hard brown stool, no blood noted Patient was given 1 unit of RBCs with dialysis, and had 2.7 L taken off. Review of Systems Review of Systems: 12 systems were reviewed and are negativ e except for as per HPI. [facility] Past Medical History Medical History Obstructive sleep apnea Insulin dependent type 2 diabetes mellitus Chronic obstructive pulmonary disease Coronary artery disease Benign prostatic hyperplasia Peripheral vascular disease Internal hemorrhoid, bleeding Gastritis Anemia End-stage renal disease on hemodialysis History of colon polyps Environmental allergies Vitamin D deficiency Dyslipidemia Essential (primary) hypertension Surgical History Surgical History History of hemorrhoidectomy Anorectal evaluation under anesthesia and excisional hemorrhoidectomy x3 12/14/23 SAW S/P peripheral artery angioplasty (~03/2023) status post balloon angioplasty of bilateral common and external iliac arteries status post left iliofemoral endarterectomy Arteriovenous fistula of left upper extremity (~2017) History of appendectomy (~1962) History of coronary artery bypass graft (~2013) Family History Family History Mother Diabetes mellitus Acute myocardial infarction Family history of congestive heart failure Father Hypertension Social History Social History Social History: Surrogate medical decision maker: Wilian Morrissey, sibling. Code status: Full code. Caffeine- daily Smoking packs per day: 10 Smoking cigarettes per day: 200.0 Years smoked: 10 Smoking pack-years: 100.00 Smoking status: Former smoker Tobacco type: cigarettes and pipe Second hand tobacco smoke exposure: No Smoking end date: 10/22/13 Alcohol intake: current Drinks per week: 1 Alcohol use details: Maybe 2-3 per year Substance use: former Substance use type: prescription drug Do You Feel Safe in your Home?: Yes Lack of Transportation: No Lack of Food: Never True Current Housing: I Have Housing Concerned About Future Housing: No Difficulty Paying Gas/Electric Bills: No Difficulty Paying for Meds: No Currently Unemployed: No Education: Decline to Answer Difficulty w/ Childcare or Family Care: No Living arrangements: with family Occupation/Education: retired Additional occupation/education comments: Retired from [employer]. Spiritual care concerns: No Agree to blood products: Yes Meds Home Medications and Allergies Home Medications ?Medication ?Instructions ?Recorded ?Confirmed ?Type aspirin 81 mg tablet,delayed 81 mg PO DAILY 10/31/21 10/21/24 History release atorvastatin 20 mg tablet 20 mg PO QHS 10/31/21 10/21/24 History carvedilol 25 mg tablet 25 mg PO BID 10/31/21 10/21/24 History dulaglutide 1.5 mg/0.5 mL 1.5 mg subcut WEEKLY 10/31/21 10/21/24 History subcutaneous pen injector (Trulicity) insulin lispro 100 unit/mL 4 unit subcut .TIDAC 10/31/21 10/21/24 History subcutaneous pen loratadine 10 mg tablet (Claritin) 10 mg PO DAILY 10/31/21 10/21/24 History losartan 100 mg tablet 100 mg PO DAILY 10/31/21 10/21/24 History amlodipine 10 mg tablet 10 mg PO DAILY 11/07/23 10/21/24 History insulin glargine 100 unit/mL (3 6 unit subcut DAILY 11/07/23 10/21/24 History mL) subcutaneous pen (Lantus Solostar U-100 Insulin) sevelamer HCl 800 mg tablet 3,200 mg PO TID 11/07/23 10/21/24 History tamsulosin 0.4 mg capsule 0.4 mg PO QHS 11/07/23 10/21/24 History cinacalcet 90 mg PO DAILY 12/12/23 10/21/24 History cyclobenzaprine 10 mg tablet 10 mg PO TID PRN muscle spasm #30 10/07/24 10/21/24 Rx tabs Allergies Allergy/AdvReac Type Severity Reaction Status Date / Time No Known Allergies Allergy Verified 10/07/24 15:46 Vital Signs Vital Signs - 24 hr 10/21/24 09:52 10/21/24 10:43 10/21/24 11:34 Temperature 97.7 F 97.9 F Pulse Rate 68 68 76 Respiratory Rate 15 20 20 Blood Pressure 111/58 L 132/69 112/62 Pulse Oximetry 96 94 96 Oxygen Delivery Nasal Cannula Oxygen Flow Rate 3 10/21/24 12:15 10/21/24 12:22 10/21/24 12:25 Temperature Pulse Rate 68 71 100 Respiratory Rate Blood Pressure 112/51 L 114/86 131/55 L Pulse Oximetry Oxygen Delivery Oxygen Flow Rate 10/21/24 12:34 10/21/24 12:35 10/21/24 13:07 Temperature 98.0 F Pulse Rate 59 L 64 Respiratory Rate 19 20 Blood Pressure 118/66 Pulse Oximetry 97 97 Oxygen Delivery Nasal Cannula Oxygen Flow Rate 2 10/21/24 13:17 10/21/24 13:46 10/21/24 14:21 Temperature 98.0 F 98.0 F Pulse Rate 62 72 74 Respiratory Rate 20 19 19 Blood Pressure 122/60 140/63 Pulse Oximetry 96 96 Oxygen Delivery Oxygen Flow Rate Exam Narrative: General: well appearing, appears stated age. HEENT: normocephalic, atraumatic. Mucous membranes moist. EOMI, PERRLA, bilateral sclera anicteric, no conjunctival injection. Neck supple without JVD, lymphadenopathy, or bruit. Respiratory: clear to ascultation bilaterally. No rales/rhonic/wheezes. Cardiovascular: Regular rate and rhythm, normal S1-S2 upon ascultation. No murmurs, rubs, or clicks. PMI is nondisplaced, capillary refill less than 3 second. Abdomen: Soft, round, no pulsatile masses, nondistended and nontender. No rebound, no guarding. No CVA tenderness, no hepatosplenomegaly. Bowel sounds present to all four quadrants. No high pitch or tinkling sounds, resonant to percussion. Extremities: No cyanosis, clubbing, or edema present. Pulses are palpable 2/2. Active ROM to all four extremities. Neuro: Alert and orientated x 4. PERRLA. Cranial nerves 2-12 intact without focal deficit. Skin: Warm, dry, and intact, without rash, erythema, or lesion. Psych: pleasant, cooperative, normal speech, normal affect, no hallucinations, no dysarthia AV fistula H&P: Results Labs Labs: Short CBC 10/21/24 Range/Units 10:02 WBC 5.7 (4.5-10.0) K/mm3 Hgb 7.6 L (14.0-18.0) g/dL Hct 25.2 L (42.0-52.0) % Plt Count 211 (150-375) k/mm3 BMP 10/21/24 10:35 Sodium 134 L Potassium 3.4 Chloride 97 L Carbon Dioxide 36 H BUN 26 H D Creatinine 4.00 H Glucose 91 Calcium 8.8 Liver Function 10/21/24 Range/Units 10:35 Total Bilirubin 0.5 (0.2-1.3) mg/dL AST 14 L (17-59) U/L ALT 9 (6-50) U/L Alkaline Phosphatase 54 (38-126) U/L Albumin 3.1 L (3.5-5.1) g/dL Assessment and Plan Assessment and plan (1) Acute respiratory distress: Code(s): R06.03 - Acute respiratory distress Status: Acute Assessment and Plan: Likely secondary to pulmonary edema and acute on chronic anemia Plan for 2 RBCs, Lasix, and emergent dialysis. DuoNeb Respiratory status improved with dialysis (2) Syncope: Code(s): R55 - Syncope and collapse Status: Acute Assessment and Plan: EKG shows atrial fibrillation Telemetry Echocardiogram Carotid Dopplers PT OT (3) Pulmonary edema: Code(s): J81.1 - Chronic pulmonary edema Status: Acute Assessment and Plan: Acute pulmonary edema Lasix 80 mg x 1 Emergent dialysis tonight Echocardiogram pending (4) Anemia: Code(s): D64.9 - Anemia, unspecified Status: Acute Assessment and Plan: Transfuse units of RBCs with dialysis No signs of acute bleeding No blood on digital exam PPI Repeat hemoglobin at baseline, Hold 2nd unit of blood (5) End-stage renal disease on hemodialysis: Code(s): N18.6 - End stage renal disease; Z99.2 - Dependence on renal dialysis Status: Acute Assessment and Plan: Nephrology consulted Plan for emergent dialysis tonight Restart phosphate binder (6) COPD (chronic obstructive pulmonary disease): Qualifiers: COPD type: unspecified COPD Qualified Code(s): J44.9 - Chronic obstructive pulmonary disease, unspecified Code(s): J44.9 - Chronic obstructive pulmonary disease, unspecified Status: Chronic Assessment and Plan: DuoNeb q.6 Guaifenesin (7) Coronary artery disease: Code(s): I25.10 - Atherosclerotic heart disease of [place] coronary artery without angina pectoris Status: Acute Assessment and Plan: Continue losartan, aspirin, Lipitor (8) Diabetes: Code(s): E11.9 - Type 2 diabetes mellitus without complications Status: Acute Assessment and Plan: Renal diabetic diet Accu-Cheks a.c. HS Restart home insulin (9) Hypertension: Code(s): I10 - Essential (primary) hypertension Status: Acute Assessment and Plan: Restart home antihypertensives Quality VTE Prophylaxis VTE prophylaxis: mechanical ordered Hospitalist MIPS Advance Care Plan I have confirmed that the patient's Advanced Care Plan is present, code status is documented, or surrogate decision maker is listed in patient medical record.: Yes Medication Reconciliation I have utilized all available resources to obtain, update and review the patients current medications (includes all prescriptions, OTC, herbals, cannabis, and nutritional supplements).: Yes
--- NOTE | 2024-10-21 16:43 | P.CONNP_ITS ---
Assessment and Plan Assessment and plan (1) End stage renal disease: Code(s): N18.6 - End stage renal disease Status: Deleted Assessment and Plan: * HD today * continue T/T/S outpatient dialysis schedule while hospitalized * follow electrolytes, volume status, and clearance (2) Acute respiratory failure with hypoxia: Code(s): J96.01 - Acute respiratory failure with hypoxia Status: Acute Assessment and Plan: * due to several issues: * pulmonary edema * volume overload (was apparently 9kg above dry weight per dialysis center) * worsening anemia * other(?) * IV lasix * PRBC transfusion * fluid removal/ultrafiltration with HD today * supplemental oxygen - wean as tolerated (3) Syncope: Code(s): R55 - Syncope and collapse Status: Acute Assessment and Plan: * as noted by events at outpatient dialysis center * etiology? * anemia? * fluid shifts with dialysis? * fluctuating hemodynamics with dialysis? * cardiac event? * follow telemetry * PRBC transfusion * Echo ordered (4) Anemia: Code(s): D64.9 - Anemia, unspecified Status: Deleted Assessment and Plan: * noted drop in hemoglobin by admission labs * stool hemoocult positive * known history of gastritis and hemorrhoids * PRBC transfusion per protocol * high dose Retacrit with HD * follow trend of H/H (5) Essential (primary) hypertension: Code(s): I10 - Essential (primary) hypertension Status: Chronic Assessment and Plan: * reasonable control at this time * follow trend of hemodynamics (6) IDDM (insulin dependent diabetes mellitus): Status: Chronic Assessment and Plan: * follow accu-cheks * glycemic control per hospitalists I will continue follow the patient with you while he remains hospitalized and make further recommendations as needed. Thank you for allowing me to participate in the care of this patient. History of Present Illness Reason for Consult Consult date: 10/21/24 Reason for consult: end stage renal disease Chief Complaint Chief complaint: CHF/Hypoxia/Anemia History of Present Illness Narrative: 79-year-old male past medical history of diabetes, CAD, COPD, anemia, and end- stage renal disease on hemodialysis presents the hospital after syncope. Patient was in dialysis when he passed out. He was found to be hypoxic with complaints of shortness of breath. HPI is limited due to patient stating this morning's events were little fuzzy. He denies history of pulmonary edema. In the ED patient was found to be anemic at 7.6 baseline around 8.5, hyponatremia 134, creatinine 4.0, GFR 15, BUN at 26, carbon dioxide 36, BNP over 30,000, influenza A/B, RSV, COVID negative. Chest x-ray shows moderate central pulmonary edema. EKG shows atrial fibrillation rate of 63. Dr. Tang consulted and plans for dialysis tonight. No signs of acute bleeding, digital exam hard brown stool, no blood noted Renal consultation was requested due to his end-stage renal disease. The patient normally dialyzes on a Sunday, , and Sunday dialysis schedule at [facility] under the care of Dr. Brett Tang. From a dialysis perspective, the patient usually does quite well with relative stability in his monthly labs although his fluid gains can be an issue at times. His last dialysis treatment was earlier today and only received about 2 hours of treatment before his treatment was aborted and he was sent to the ER. Currently, at the time my visit, he is tolerating dialysis without any issues or problems (seen on HD at 4:30PM). Review of Systems 2 Review of Systems: As per HPI. [facility] Past Medical History Medical History Obstructive sleep apnea Insulin dependent type 2 diabetes mellitus Chronic obstructive pulmonary disease Coronary artery disease Benign prostatic hyperplasia Peripheral vascular disease Internal hemorrhoid, bleeding Gastritis Anemia End-stage renal disease on hemodialysis History of colon polyps Environmental allergies Vitamin D deficiency Dyslipidemia Essential (primary) hypertension Surgical History Surgical History History of hemorrhoidectomy Anorectal evaluation under anesthesia and excisional hemorrhoidectomy x3 12/14/23 SAW S/P peripheral artery angioplasty (~03/2023) status post balloon angioplasty of bilateral common and external iliac arteries status post left iliofemoral endarterectomy Arteriovenous fistula of left upper extremity (~2017) History of appendectomy (~1962) History of coronary artery bypass graft (~2013) Family History Family History Mother Diabetes mellitus Acute myocardial infarction Family history of congestive heart failure Father Hypertension Social History Social History Social History: Surrogate medical decision maker: Wilian Morrissey, sibling. Code status: Full code. Caffeine- daily Smoking packs per day: 10 Smoking cigarettes per day: 200.0 Years smoked: 10 Smoking pack-years: 100.00 Smoking status: Former smoker Tobacco type: cigarettes and pipe Second hand tobacco smoke exposure: No Smoking end date: 10/22/13 Alcohol intake: current Drinks per week: 1 Alcohol use details: Maybe 2-3 per year Substance use: former Substance use type: prescription drug Do You Feel Safe in your Home?: Yes Lack of Transportation: No Lack of Food: Never True Current Housing: I Have Housing Concerned About Future Housing: No Difficulty Paying Gas/Electric Bills: No Difficulty Paying for Meds: No Currently Unemployed: No Education: Decline to Answer Difficulty w/ Childcare or Family Care: No Living arrangements: with family Occupation/Education: retired Additional occupation/education comments: Retired from the [employer]. Spiritual care concerns: No Agree to blood products: Yes Meds Home Medications and Allergies Home Medications ?Medication ?Instructions ?Recorded ?Confirmed ?Type aspirin 81 mg tablet,delayed 81 mg PO DAILY 10/31/21 10/21/24 History release atorvastatin 20 mg tablet 20 mg PO QHS 10/31/21 10/21/24 History carvedilol 25 mg tablet 25 mg PO BID 10/31/21 10/21/24 History dulaglutide 1.5 mg/0.5 mL 1.5 mg subcut WEEKLY 10/31/21 10/21/24 History subcutaneous pen injector (Trulicity) insulin lispro 100 unit/mL 4 unit subcut .TIDAC 10/31/21 10/21/24 History subcutaneous pen loratadine 10 mg tablet (Claritin) 10 mg PO DAILY 10/31/21 10/21/24 History losartan 100 mg tablet 100 mg PO DAILY 10/31/21 10/21/24 History amlodipine 10 mg tablet 10 mg PO DAILY 11/07/23 10/21/24 History insulin glargine 100 unit/mL (3 6 unit subcut DAILY 11/07/23 10/21/24 History mL) subcutaneous pen (Lantus Solostar U-100 Insulin) sevelamer HCl 800 mg tablet 3,200 mg PO TID 11/07/23 10/21/24 History tamsulosin 0.4 mg capsule 0.4 mg PO QHS 11/07/23 10/21/24 History cinacalcet 90 mg PO DAILY 12/12/23 10/21/24 History cyclobenzaprine 10 mg tablet 10 mg PO TID PRN muscle spasm #30 10/07/24 10/21/24 Rx tabs Allergies Allergy/AdvReac Type Severity Reaction Status Date / Time No Known Allergies Allergy Verified 10/07/24 15:46 Vital Signs Vital Signs Temp Pulse Resp BP Pulse Ox O2 Del Method O2 Flow Rate 10/21/24 16:30 97.9 F 77 18 137/64 10/21/24 16:26 97.9 F 75 18 135/68 10/21/24 16:25 97.9 F 75 18 135/68 10/21/24 16:25 97.9 F 75 18 135/68 10/21/24 15:31 98.0 F 73 21 H 119/74 98 10/21/24 15:20 97.9 F 66 21 H 145/67 H 95 10/21/24 14:21 98.0 F 74 19 140/63 96 10/21/24 13:46 98.0 F 72 19 122/60 96 10/21/24 13:17 62 20 10/21/24 13:07 64 20 10/21/24 12:35 98.0 F 59 L 19 118/66 97 10/21/24 12:34 97 Nasal Cannula 2 10/21/24 12:25 100 131/55 L 10/21/24 12:22 71 114/86 10/21/24 12:15 68 112/51 L 10/21/24 11:34 97.9 F 76 20 112/62 96 10/21/24 10:43 68 20 132/69 94 10/21/24 09:52 97.7 F 68 15 111/58 L 96 Nasal Cannula 3 Exam 2 Narrative: GENERAL APPEARANCE: elderly but well developed well nourished male in no acute distress HEENT: normocephalic, atraumatic, mild pallor to conjunctiva and sclera, nares patient NECK: no lymphadenopathy, thyromegaly, or JVD MOUTH: normal lips, teeth, and gums CARDIOVASCULAR: RRR, normal S1 and S2, no rub RESPIRATORY: coarse with a few bibasilar crackles ABDOMEN: soft, nontender, nondistended, positive bowel sounds present EXTREMITIES: no evidence of cyanosis, clubbing; 1+ edema NEUROLOGICAL: alert and oriented x 3; CN II - XII intact bilaterally; no focal deficits noted Results Lab Results 10/22/24 04:41 10/22/24 08:28 Lab results: Most recent lab results Calcium 8.8 mg/dL (8.4-10.2) 10/21/24 10:35
[2024-10-21 18:07] LABS: Hepatitis B Surface Antigen Negative (Negative)
[2024-10-21 18:25] LABS: Hepatitis B Surface Anti Res Positive
--- NOTE | 2024-10-21 19:24 | PC.NURSE ---
This patient, Sam Morrissey, was admitted to IMU Room 210-01. Patient/family oriented to hospital policies and general routines including ID bracelet, bed and alarms, visiting hours, pain management, procedures, bathroom and other care routines, personal items, smoking policy, room service/diet, and visiting hours. Information on how to activate the Rapid Response Team has been discussed. Patient/Family are encouraged to report perceived risks to care and to ask questions if they do not understand what they are told or what they should do.
[2024-10-21 20:45] LABS: Glucose Point of Care 98 mg/dl (65-105)
[2024-10-21 22:17] LABS: Hematocrit 29.8 % (42.0-52.0); Hemoglobin 9.2 g/dL (14.0-18.0)
--- NOTE | 2024-10-21 22:27 | PC.NURSE ---
Ami Diana MACHINE STRAP BUCKLER notified of patient's hgb result of 9.2. MACHINE STRAP BUCKLER with orders to hold unit of PRBCs.
[2024-10-21] MEDS: PANTOPRAZOLE SODIUM IV 40 MG VIAL IV PUSH (22:58)
[2024-10-22] VITALS (25 sets, daily range): BP systolic 112–156; BP diastolic 44–76; PULSE 57–84; RESP 18–24; TEMP 36.3–36.8; O2SAT 85–96
[2024-10-22 05:15] LABS: Basophils Absolute Auto 0.1 K/mm3 (0.0-0.1); Basophils Percent Auto 1.2 % (0.2-1.2); Eosinophils Absolute Auto 0.1 K/mm3 (0-0.3); Eosinophils Percent Auto 1.4 % (0-4.4); Hematocrit 29.9 % (42.0-52.0); Hemoglobin 9.3 g/dL (14.0-18.0); Immature Granulocyte Absolute 0.05 K/mm3 (0.00-0.031); Immature Granulocyte Percent A 0.9 % (0-0.5); Lymphocytes Percent Auto 5.2 % (18.3-44.2); Mean Corpuscular HGB Conc 31.1 g/dl (32-36); Mean Corpuscular Hemoglobin 31.6 pg (26-34); Mean Corpuscular Volume 101.7 fl (80-100); Mean Platelet Volume 10.7 fl (7.4-10.4); Monocytes Absolute Auto 0.8 K/mm3 (0.1-0.6); Monocytes Percent Auto 13.4 % (2.6-8.5); Neutrophils Absolute Auto 4.5 K/mm3 (1.3-6.7); Neutrophils Percent Auto 77.9 % (45.5-73.1); Nucleated Red Blood Cells Perc 0.7 % (0.0-0.2); Platelet Count Result 204 k/mm3 (150-375); Red Blood Count 2.94 M/mm3 (4.6-6.20); Red Cell Distribution Width 18.6 % (11.5-14.5); White Blood Count 5.8 K/mm3 (4.5-10.0)
[2024-10-22] MEDS: guaiFENesin/DEXTROMETHORPHAN 10 ML UDC PO ×5 (05:32→18:39)
[2024-10-22 08:09] LABS: Glucose Point of Care 121 mg/dl (65-105)
--- NOTE | 2024-10-22 09:00 | ECHO_ITS ---
Patient Info Name: Sam Morrissey Age: 79 years : 1945 Gender: Male Ht: 66 in Wt: 202 lbs BSA: 2.10 m2 HR: 82 bpm BP: 156 / 76 mmHg Technical Quality: Good Exam Date: 10/22/2024 12:04 PM Exam Location: Echo Lab Patient Status: Inpatient Admit Date: 10/22/2024 Staff Ordering Physician: Ami Diana APRN Plant Floor Automation Manager: Jody Holder RDCS Attending Provider: Florentino Ennis MD Referring Physician: Adalgisa WILDER; Exam Type: CA echo doppler color flow Study Info Complete two-dimensional, color flow and Doppler transthoracic echocardiogram is performed. Summary 1. Complete two-dimensional, color flow and Doppler transthoracic echocardiogram is performed. 2. Left ventricular chamber dimension is normal. 3. Left ventricular systolic function is normal, estimated at 60-65%. 4. There is mildly increased left ventricular wall thickness. 5. Left ventricular septal wall motion is abnormal. 6. The left ventricular diastolic function is indeterminate. 7. Right ventricular chamber dimension is enlarged. 8. Right ventricular systolic function is normal. 9. Left atrial chamber dimension is enlarged. 10. Right atrial chamber dimension is enlarged. 11. There is mild aortic valve sclerosis. 12. There is no aortic valve stenosis. 13. The mitral valve has posterior annular calcification. 14. There is mild to moderate mitral valve regurgitation. 15. Dilated inferior vena cava with <50% collapse upon inspiration consistent with elevated right atrial pressure, 15 mmHg. 16. There is moderate tricuspid valve regurgitation. 17. Mild pulmonary hypertension, estimated pulmonary arterial systolic pressure is 49 mmHg. Left Ventricle Left ventricular chamber dimension is normal. Left ventricular systolic function is normal, estimated at 60-65%. There is mildly increased left ventricular wall thickness. Left ventricular septal wall motion is abnormal. The left ventricular diastolic function is indeterminate. Right Ventricle Right ventricular chamber dimension is enlarged. Right ventricular systolic function is normal. Left Atria Left atrial chamber dimension is enlarged. Right Atria Right atrial chamber dimension is enlarged. Aortic Valve The aortic valve is trileaflet. There is mild aortic valve sclerosis. There is no aortic valve stenosis. There is no aortic valve regurgitation. Pulmonic Valve The pulmonic valve is normal. There is trace pulmonic regurgitation. Mitral Valve The mitral valve has posterior annular calcification. There is no mitral valve stenosis. There is mild to moderate mitral valve regurgitation. Tricuspid Valve The tricuspid valve leaflets are normal. There is no significant tricuspid valve stenosis. There is moderate tricuspid valve regurgitation. Mild pulmonary hypertension, estimated pulmonary arterial systolic pressure is 49 mmHg. Pericardium/Pleural The pericardium appears normal. There is no pericardial effusion. Inferior Vena Cava Dilated inferior vena cava with <50% collapse upon inspiration consistent with elevated right atrial pressure, 15 mmHg. Aorta The aortic root size at the sinus of Valsalva is normal. The prox ascending aorta size is normal. Left Ventricular Outflow Tract Name Value Normal LVOT 2D LVOT Diameter 2.2 cm LVOT Doppler LVOT Peak Gradient 3 mmHg LVOT Mean Gradient 2 mmHg LVOT VTI 19 cm LVOT VTI/AV VTI Ratio 0.5 LVOT Stroke Volume 70 ml LVOT CO 4.8 l/min LVOT CI 2.3 l/min/m2 Pulmonic Valve Name Value Normal PV Doppler PV Peak Gradient 4 mmHg Mitral Valve Name Value Normal MV Doppler MV Peak Gradient 18 mmHg MV Mean Gradient 6 mmHg MV Decel [place] 1,065 cm/s2 MV PHT 57 ms MV Area (PHT) 3.9 cm2 4.0-5.0 MV Area (Cont Eq VTI) 1.3 cm2 MV Regurgitation Doppler MR Peak Gradient 103 mmHg MV Diastolic Function MV E Peak Velocity 208 cm/s MV A Peak Velocity 41 cm/s MV E/A 5.0 MV Decel Time 195 ms MV Annular TDI MV E/e' (Septal) 50.7 <=8.0 MV E/e' (Lateral) 31.6 <=8.0 MV E/e' (Average) 41.2 Tricuspid Valve Name Value Normal TV Regurgitation Doppler TR Peak Velocity 317 cm/s TR Peak Gradient 34 mmHg Estimated PAP/RSVP RA Pressure 15 mmHg <=5 PA Systolic Pressure 49 mmHg <36 RV Systolic Pressure 55 mmHg <36 Aortic Valve Name Value Normal AV Doppler AV Peak Velocity 172 cm/s AV Peak Gradient 12 mmHg AV Mean Gradient 6 mmHg AV VTI 37 cm AV Area (Cont Eq VTI) 1.9 cm2 >=3.0 AV Area (Cont Eq Kedar) 2.0 cm2 AV Regurgitation 2D LVOT Area 3.7 cm2 Ventricles Name Value Normal LV Dimensions 2D/MM IVS Diastolic Thickness (2D) 1.3 cm 0.6-1.0 IVS Diastole Thickness (MM) 1.2 cm 0.6-1.0 LVID Diastole (2D) 4.9 cm 4.2-5.8 LVID Diastole (MM) 5.5 cm 4.2-5.8 LVIW Diastolic Thickness (2D) 1.3 cm 0.6-1.0 LVIW Diastolic Thickness (MM) 1.1 cm 0.6-1.0 IVS Systolic Thickness (MM) 1.4 cm LVID Systole (2D) 3.8 cm 2.5-4.0 LVID Systole (MM) 3.4 cm 2.5-4.0 LVIW Systolic Thickness (MM) 1.3 cm LVOT Diameter 2.2 cm LV Mass (2D Cubed) 250.23 g 88.00-224.00 LV Mass Index (2D Cubed) 119 g/m2 49-115 Relative Wall Thickness (2D) 0.52 LV Mass (MM Cubed) 270.99 g 88.00-224.00 LV Mass Index (MM Cubed) 129 g/m2 49-115 Relative Wall Thickness (MM) 0.41 LV Fractional Shortening/Ejection Fraction 2D/MM LV Fractional Shortening (2D) 21 % 25-43 LV Fractional Shortening (MM) 37 % 25-43 LV EF (MM Teicholz) 67 % 52-72 LV EF (2D Teicholz) 43 % 52-72 LV Diastolic Volume (4C MOD) 109 ml LV EF (4C MOD) 63 % LV Diastolic Length (4C) 8.1 cm LV Systolic Length (4C) 7.6 cm LV Stroke Volume (4C MOD) 69 ml Atria Name Value Normal LA Dimensions LA Volume (4C A-L) 99 ml RA Dimensions RA Area (4C) 24.5 cm2 <=18.0 Report Signatures
[2024-10-22] MEDS: INSULIN ASPART (*BKC) 100 UNITS/ML SUB-Q ×3 (09:08→18:40)
[2024-10-22] MEDS: carvediloL 25 MG TABLET PO (09:09)
[2024-10-22] MEDS: ASPIRIN 81 MG ENTERIC TABLET PO (09:10)
[2024-10-22] MEDS: amLODIPine BESYLATE 10 MG TABLET PO (09:10)
[2024-10-22] MEDS: CINACALCET 30 MG TABLET 90 MG PO (09:10)
[2024-10-22] MEDS: LOSARTAN POTASSIUM 100 MG TABLET PO (09:10)
[2024-10-22] MEDS: PANTOPRAZOLE SODIUM IV 40 MG VIAL IV PUSH (09:11)
[2024-10-22] MEDS: polyethylene glycoL 3350 17 GM POWD.PACK PO (09:11)
[2024-10-22] MEDS: INSULIN GLARGINE (*BKC) 100 UNITS/ML 6 UNITS SUB-Q (09:15)
[2024-10-22 09:16] LABS: Alanine Aminotransferase 10 U/L (6-50); Albumin Level 3.9 g/dL (3.5-5.1); Alkaline Phosphatase 68 U/L (38-126); Anion Gap 3 mmol/L (4-12); Aspartate Amino Transferase 12 U/L (17-59); Bilirubin,Total 0.5 mg/dL (0.2-1.3); Blood Urea Nitrogen 25 mg/dL (9-20); Calcium 9.2 mg/dL (8.4-10.2); Carbon Dioxide 36 mmol/L (22-30); Chloride 97 mmol/L (98-107); Estimated CRCL calculation 13 ml/min; Estimated Glomerular Filt Rate 12; Glucose 140 mg/dL (65-110); Magnesium 2.1 mg/dL (1.6-2.3); Phosphorus 3.5 mg/dL (2.5-4.5); Potassium 4.2 mmol/L (3.4-5.0); Sodium 136 mmol/L (137-145)
[2024-10-22] MEDS: IPRATROPIUM 0.5 MG/ALBUTEROL SULFATE 2.5 MG AMPUL.NEB 3 ML INHALATION ×2 (09:16→14:30)
--- NOTE | 2024-10-22 10:11 | P.PNNP_ITS ---
Progress Note: A&P Assessment and Plan (1) End stage renal disease: Code(s): N18.6 - End stage renal disease Status: Deleted Assessment and Plan: * HD tomorrow * continue T/T/S outpatient dialysis schedule while hospitalized * follow electrolytes, volume status, and clearance (2) Acute respiratory failure with hypoxia: Code(s): J96.01 - Acute respiratory failure with hypoxia Status: Acute Assessment and Plan: * due to several issues: * pulmonary edema * volume overload (was apparently 9kg above dry weight per dialysis center) * worsening anemia * other(?) * IV lasix given in ER * PRBC transfusion (1 unit) with HD yesterday * continue fluid removal/ultrafiltration with HD as tolerated * supplemental oxygen - wean as tolerated (3) Syncope: Code(s): R55 - Syncope and collapse Status: Acute Assessment and Plan: * as noted by events at outpatient dialysis center * etiology? * anemia? * fluid shifts with dialysis? * fluctuating hemodynamics with dialysis? * cardiac event? * follow telemetry * PRBC transfusion * Echo pending (4) Anemia: Code(s): D64.9 - Anemia, unspecified Status: Deleted Assessment and Plan: * noted drop in hemoglobin by admission labs * stool hemoocult positive * known history of gastritis and hemorrhoids * PRBC transfusion per protocol * high dose Retacrit with HD * follow trend of H/H (5) Essential (primary) hypertension: Code(s): I10 - Essential (primary) hypertension Status: Chronic Assessment and Plan: * reasonable control at this time * follow trend of hemodynamics (6) IDDM (insulin dependent diabetes mellitus): Status: Chronic Assessment and Plan: * follow accu-cheks * glycemic control per hospitalists Will continue to follow. L Subjective Date/time seen: 10/22/24 10:11 Interval history: Follow-up for end stage renal disease on hemodialysis. Sleepy and tired at the time of my visit (reportedly did not sleep very well overnight); tolerated dialysis treatment yesterday with PRBC transfusion without any issues or problems; H/H stable since blood transfusion; still requiring supplemental oxygen at the time of my visit; otherwise, no apparent distress noted. Exam 2 Narrative: General: elderly but WD/WN male in NAD Heart: IRRR, normal S1 and S2; no rub Lungs: few bibasilar crackles Abdomen: soft, nontender, nondistended, positive bowel sounds Extremities: no cyanosis or clubbing; trace edema Skin: warm and dry Objective Data Vital Signs Vital Signs: Vital Signs Temp Pulse Resp BP Pulse Ox O2 Del Method O2 Flow Rate 10/22/24 10:00 144/48 H 10/22/24 09:25 80 18 10/22/24 09:17 75 18 10/22/24 09:17 94 Nasal Cannula 3 10/22/24 09:09 81 10/22/24 08:00 97.6 F 82 22 H 156/76 H 96 10/22/24 06:00 81 10/22/24 04:00 78 10/22/24 04:00 95 Nasal Cannula 3 10/22/24 03:17 93 Nasal Cannula 2 10/22/24 03:11 98.3 F 80 22 H 138/49 L 93 10/22/24 02:00 79 10/22/24 00:00 78 10/22/24 00:00 93 Nasal Cannula 3 10/21/24 23:35 98.7 F 69 22 H 133/51 L 94 10/21/24 22:00 77 10/21/24 19:47 98.3 F 85 22 H 158/72 H 94 10/21/24 19:24 94 Nasal Cannula 3 10/21/24 19:05 97.9 F 86 18 155/73 H 10/21/24 18:48 80 150/78 H 10/21/24 18:30 80 163/79 H 10/21/24 18:15 78 168/84 H 10/21/24 18:00 79 172/90 H 10/21/24 17:45 79 136/74 Intake/Output Intake/Output: Intake & Output 10/19/24 10/20/24 10/21/24 10/22/24 23:59 23:59 23:59 23:59 Intake Total 350 1360 Output Total 2450 Balance -2100 1360 Meds/Results Medications: Active Medications Generic Name Dose Route Start Last Admin Trade Name Freq PRN Reason Stop Dose Admin Acetaminophen 650 mg 10/21/24 14:53 Acetaminophen 325 Mg Tablet PO Q4H PRN Mild Pain (1-3) or Fever Hydrocodone Bitart/Acetaminophen 1 tab 10/21/24 14:53 Hydrocodone/Acetaminophen (*Crx) 5-325 Mg Tablet PO Q4H PRN Pain Rated 4-6 Albuterol/Ipratropium 3 ml 10/22/24 02:00 10/22/24 14:30 Ipratropium 0.5 Mg/Albuterol Sulfate 2.5 Mg Ampul.Neb 3 Ml INHALATION 3 ml Q6HRT DAVID Administration Amlodipine Besylate 10 mg 10/22/24 09:00 10/22/24 09:10 Amlodipine Besylate 10 Mg Tablet PO 10 mg DAILY DAVID Administration Aspirin 81 mg 10/22/24 09:00 10/22/24 09:10 Aspirin 81 Mg Enteric Tablet PO 81 mg DAILY DAVID Administration Atorvastatin Calcium 20 mg 10/22/24 21:00 Atorvastatin 20 Mg Tablet PO QHS DAVID Cinacalcet 90 mg 10/22/24 09:00 10/22/24 09:10 Cinacalcet 30 Mg Tablet PO 90 mg DAILY DAVID Administration Guaifenesin/Dextromethorphan 10 ml 10/22/24 03:00 10/22/24 13:39 Guaifenesin/Dextromethorphan 10 Ml Udc PO 10 ml Q4H DAVID Administration Albumin Human 50 mls @ 999 mls/hr 10/21/24 15:00 Albutein IVPB 11/20/24 14:59 Q10M PRN HYPOTENSION Dopamine HCl/Dextrose 400 mg in 250 mls @ 8.222 mls/hr 10/22/24 14:40 10/22/24 15:10 Dopamine 400 Mg/D5w 250 Ml IV CONT 2.5 mcg/kg/min .Q24H DAVID 8.22 mls/hr Administration 2.5 MCG/KG/MIN Insulin Aspart 4 units 10/22/24 08:00 10/22/24 13:41 Insulin Aspart (*Bkc) 100 Units/Ml SUB-Q 4 units TIDWM DAVID Administration Insulin Glargine 6 units 10/22/24 09:00 10/22/24 09:15 Insulin Glargine (*Bkc) 100 Units/Ml SUB-Q 6 units DAILY DAVID Administration Losartan Potassium 100 mg 10/22/24 09:00 10/22/24 09:10 Losartan Potassium 100 Mg Tablet PO 100 mg DAILY DAVID Administration Miscellaneous Information 0 each 10/22/24 00:01 Pt Ok To Bring Sevelamer Hcl From Home - Send To Rx For Verification XX 11/21/24 00:00 CLARIFY [facility] Non-Formulary Medication 3,200 mg 10/22/24 09:00 Sevelamer Hcl PO 11/21/24 08:59 TID DAVID Ondansetron HCl 4 mg 10/21/24 14:53 Ondansetron Inj 4 Mg/2 Ml Vial IV PUSH Q4H PRN Nausea Pantoprazole Sodium 40 mg 10/21/24 21:00 10/22/24 09:11 Pantoprazole Sodium Iv 40 Mg Vial IV PUSH 40 mg Q12HR DAVID Administration Perflutren Lipid Microsphere 0 ml 10/21/24 15:08 Perflutren Lipid Microspheres 1.5 Ml Vial Diluted To 10 Ml Total Volume IV PUSH 10/24/24 15:08 ONCE PRN adequate visualization Protocol Polyethylene Glycol 17 gm 10/22/24 09:00 10/22/24 09:11 Polyethylene Glycol 3350 17 Gm Powd.Pack PO 17 gm QAM DAVID Administration Tamsulosin HCl 0.4 mg 10/22/24 21:00 Tamsulosin Hcl 0.4 Mg Capsule PO QHS [facility] Labs Labs: Laboratory Tests 10/22/24 04:41 10/22/24 08:28 Calcium 9.2 Phosphorus 3.5 Magnesium 2.1 Total Bilirubin 0.5 AST 12 L ALT 10 Alkaline Phosphatase 68 Total Protein 6.0 L Albumin 3.9
--- NOTE | 2024-10-22 11:15 | PM.IMPN ---
Progress Note: A&P Assessment and Plan (1) Sinus pause: Code(s): I45.5 - Other specified heart block Status: Acute Assessment and Plan: Called to the room for Lea Darnell. Dtr in the room noted that pateint sleeping then saw patient twitch with eyes rolling upward. No seizure like activity. Patient noted to have asystole by tele. Tech could not feel carotid pulse and RN and Tech performed CPR for about 20 sec when the patient regained consciousness. Patient had syncopal episode in dialysis prior to admission. He was given his home Coreg this morning. Glucose 130's Etiology could be related to being off his NIV and/or beta quita therapy and/or SA node ischemia. Check CXR, EKG, Echo. Cards consult. Serial Troponins. Resume NIV. Cards consult (2) Syncope: Code(s): R55 - Syncope and collapse Status: Acute Assessment and Plan: As above. (3) Acute respiratory distress: Code(s): R06.03 - Acute respiratory distress Status: Acute Assessment and Plan: Likely secondary to pulmonary edema and acute on chronic anemia. Hgb was 7.6 and he was transfused 1U PRBC. He underwent HD yesterday with removal of 2.5L Continue HD to control fluid status. Wean o2 as tolerated (4) Pulmonary edema: Code(s): J81.1 - Chronic pulmonary edema Status: Acute Assessment and Plan: Acute pulmonary edema related to fluid overload and probably a component of cardiac congestion if his syncopal episode in dialysis was related to cardiac pause. Received Lasix 80 mg x 1 in ED and underwent emergent dialysis that night. Echo ordered. Use HD to control fluid status. Not on chronic diuretics since probably does not make urine (5) Anemia: Code(s): D64.9 - Anemia, unspecified Status: Acute Assessment and Plan: Hgb 7.6. He was transfused 1 unit of RBCs with dialysis. No signs of acute bleeding No blood on digital exam. Hgb into the 9 range now Follow (6) End-stage renal disease on hemodialysis: Code(s): N18.6 - End stage renal disease; Z99.2 - Dependence on renal dialysis Status: Acute Assessment and Plan: Nephrology consulted and patient underwent emergent dialysis. Contineu HD to control fluid status. Appreciate nephrology input Continue phosphate binder (7) COPD (chronic obstructive pulmonary disease): Qualifiers: COPD type: unspecified COPD Qualified Code(s): J44.9 - Chronic obstructive pulmonary disease, unspecified Code(s): J44.9 - Chronic obstructive pulmonary disease, unspecified Status: Chronic Assessment and Plan: Stable. No wheezing Continue Duonebs. (8) Coronary artery disease: Code(s): I25.10 - Atherosclerotic heart disease of [place] coronary artery without angina pectoris Status: Acute Assessment and Plan: hx of CAD s/p CABG Continue losartan, aspirin, Lipitor Stop Coreg (9) Diabetes: Code(s): E11.9 - Type 2 diabetes mellitus without complications Status: Acute Assessment and Plan: A1c 4.6 in October 2023. The patient's blood glucose was reviewed on 10/22/24 Glucose remains well controlled. Lantus and Novolog resumed but dulaglutide held. Continue AccuCheks covering with sliding scale. Hypoglycemia protocol available as needed. Continue to follow Plan DVT prophlaxis - SCDs Code status - full Subjective Date/time seen: 10/22/24 11:15 Interval history: 79yo male with DM, CAD, COPD, anemia and ESRD here for weakness. Assuming care. Chart reviewed. Called to the room for code blue. Patient now awake and alert. No symptoms prior to the event. No CP, palpitations, arm pain or jaw pain. Has a hx of CAD s/p CABG but no recent ischemic evaluation. He has CARITO but not using NIV at home because machine no longer works. He tolerated HD last night. Exam Narrative: AF 97.6 152/62 80 18 96% 3L Gen - NARD lyin semi-recumbent in bed Chest - few basilar rhonchi o/w clear. CV - irregularly irregular; Tele showing AFib with controlled rate with a 6.7sec cardiac pause. Abd - Soft, NT/ND, Positive BS Ext - tracep pedal edema. thrilll and bruit left UE fistula. Neuro - Alert and oriented. Nonfocal exam. Psych - Nml mood and affect Skin - Warm and dry Objective Data Vital Signs Vital Signs: Vital Signs - 24 hr 10/21/24 11:34 10/21/24 12:15 10/21/24 12:22 Temperature 97.9 F Pulse Rate 76 68 71 Respiratory Rate 20 Blood Pressure 112/62 112/51 L 114/86 Pulse Oximetry 96 Oxygen Delivery Oxygen Flow Rate 10/21/24 12:25 10/21/24 12:34 10/21/24 12:35 Temperature 98.0 F Pulse Rate 100 59 L Respiratory Rate 19 Blood Pressure 131/55 L 118/66 Pulse Oximetry 97 97 Oxygen Delivery Nasal Cannula Oxygen Flow Rate 2 10/21/24 13:07 10/21/24 13:17 10/21/24 13:46 Temperature 98.0 F Pulse Rate 64 62 72 Respiratory Rate 20 20 19 Blood Pressure 122/60 Pulse Oximetry 96 Oxygen Delivery Oxygen Flow Rate 10/21/24 14:21 10/21/24 15:20 10/21/24 15:31 Temperature 98.0 F 97.9 F 98.0 F Pulse Rate 74 66 73 Respiratory Rate 19 21 H 21 H Blood Pressure 140/63 145/67 H 119/74 Pulse Oximetry 96 95 98 Oxygen Delivery Oxygen Flow Rate 10/21/24 16:18 10/21/24 16:18 10/21/24 16:18 Temperature 97.7 F Pulse Rate 72 73 Respiratory Rate 18 Blood Pressure 146/64 H 127/66 Pulse Oximetry Oxygen Delivery Oxygen Flow Rate 3 10/21/24 16:25 10/21/24 16:25 10/21/24 16:25 Temperature 97.9 F 97.9 F Pulse Rate 75 75 75 Respiratory Rate 18 18 Blood Pressure 135/68 135/68 135/68 Pulse Oximetry Oxygen Delivery Oxygen Flow Rate 10/21/24 16:26 10/21/24 16:30 10/21/24 16:30 Temperature 97.9 F 97.9 F Pulse Rate 75 77 77 Respiratory Rate 18 18 Blood Pressure 135/68 137/64 137/64 Pulse Oximetry Oxygen Delivery Oxygen Flow Rate 10/21/24 16:45 10/21/24 17:00 10/21/24 17:15 Temperature Pulse Rate 72 75 74 Respiratory Rate Blood Pressure 143/52 H 148/63 H 141/59 H Pulse Oximetry Oxygen Delivery Oxygen Flow Rate 10/21/24 17:30 10/21/24 17:45 10/21/24 18:00 Temperature Pulse Rate 75 79 79 Respiratory Rate Blood Pressure 147/60 H 136/74 172/90 H Pulse Oximetry Oxygen Delivery Oxygen Flow Rate 10/21/24 18:15 10/21/24 18:30 10/21/24 18:48 Temperature Pulse Rate 78 80 80 Respiratory Rate Blood Pressure 168/84 H 163/79 H 150/78 H Pulse Oximetry Oxygen Delivery Oxygen Flow Rate 10/21/24 19:05 10/21/24 19:24 10/21/24 19:47 Temperature 97.9 F 98.3 F Pulse Rate 86 85 Respiratory Rate 18 22 H Blood Pressure 155/73 H 158/72 H Pulse Oximetry 94 94 Oxygen Delivery Nasal Cannula Oxygen Flow Rate 3 10/21/24 22:00 10/21/24 23:35 10/22/24 00:00 Temperature 98.7 F Pulse Rate 77 69 Respiratory Rate 22 H Blood Pressure 133/51 L Pulse Oximetry 94 93 Oxygen Delivery Nasal Cannula Oxygen Flow Rate 3 10/22/24 00:00 10/22/24 02:00 10/22/24 03:11 Temperature 98.3 F Pulse Rate 78 79 80 Respiratory Rate 22 H Blood Pressure 138/49 L Pulse Oximetry 93 Oxygen Delivery Oxygen Flow Rate 10/22/24 03:17 10/22/24 04:00 10/22/24 04:00 Temperature Pulse Rate 78 Respiratory Rate Blood Pressure Pulse Oximetry 93 95 Oxygen Delivery Nasal Cannula Nasal Cannula Oxygen Flow Rate 2 3 10/22/24 06:00 10/22/24 08:00 10/22/24 09:09 Temperature 97.6 F Pulse Rate 81 82 81 Respiratory Rate 22 H Blood Pressure 156/76 H Pulse Oximetry 96 Oxygen Delivery Oxygen Flow Rate 10/22/24 09:17 10/22/24 09:17 10/22/24 09:25 Temperature Pulse Rate 75 80 Respiratory Rate 18 18 Blood Pressure Pulse Oximetry 94 Oxygen Delivery Nasal Cannula Oxygen Flow Rate 3 10/22/24 10:00 10/22/24 10:56 10/22/24 10:57 Temperature Pulse Rate Respiratory Rate Blood Pressure 144/48 H 148/67 H 152/62 H Pulse Oximetry Oxygen Delivery Oxygen Flow Rate 10/22/24 11:01 Temperature Pulse Rate Respiratory Rate Blood Pressure Pulse Oximetry 93 Oxygen Delivery Nasal Cannula Oxygen Flow Rate 5 Intake/Output Intake/Output: Intake & Output 10/19/24 10/20/24 10/21/24 10/22/24 23:59 23:59 23:59 23:59 Intake Total 350 1000 Output Total 2450 Balance -2100 1000 Meds/Results Medications: Active Medications Generic Name Dose Route Start Last Admin Trade Name Freq PRN Reason Stop Dose Admin Acetaminophen 650 mg 10/21/24 14:53 Acetaminophen 325 Mg Tablet PO Q4H PRN Mild Pain (1-3) or Fever Hydrocodone Bitart/Acetaminophen 1 tab 10/21/24 14:53 Hydrocodone/Acetaminophen (*Crx) 5-325 Mg Tablet PO Q4H PRN Pain Rated 4-6 Albuterol/Ipratropium 3 ml 10/22/24 02:00 10/22/24 09:16 Ipratropium 0.5 Mg/Albuterol Sulfate 2.5 Mg Ampul.Neb 3 Ml INHALATION 3 ml Q6HRT DAVID Administration Amlodipine Besylate 10 mg 10/22/24 09:00 10/22/24 09:10 Amlodipine Besylate 10 Mg Tablet PO 10 mg DAILY DAVID Administration Aspirin 81 mg 10/22/24 09:00 10/22/24 09:10 Aspirin 81 Mg Enteric Tablet PO 81 mg DAILY DAVID Administration Atorvastatin Calcium 20 mg 10/22/24 21:00 Atorvastatin 20 Mg Tablet PO QHS DAVID Carvedilol 25 mg 10/22/24 09:00 10/22/24 09:09 Carvedilol 25 Mg Tablet PO 25 mg Q12HR DAVID Administration Cinacalcet 90 mg 10/22/24 09:00 10/22/24 09:10 Cinacalcet 30 Mg Tablet PO 90 mg DAILY DAVID Administration Guaifenesin/Dextromethorphan 10 ml 10/22/24 03:00 10/22/24 09:09 Guaifenesin/Dextromethorphan 10 Ml Udc PO 10 ml Q4H DAVID Administration Albumin Human 50 mls @ 999 mls/hr 10/21/24 15:00 Albutein IVPB 11/20/24 14:59 Q10M PRN HYPOTENSION Insulin Aspart 4 units 10/22/24 08:00 10/22/24 09:08 Insulin Aspart (*Bkc) 100 Units/Ml SUB-Q 4 units TIDWM DAVID Administration Insulin Glargine 6 units 10/22/24 09:00 10/22/24 09:15 Insulin Glargine (*Bkc) 100 Units/Ml SUB-Q 6 units DAILY DAVID Administration Losartan Potassium 100 mg 10/22/24 09:00 10/22/24 09:10 Losartan Potassium 100 Mg Tablet PO 100 mg DAILY DAVID Administration Miscellaneous Information 0 each 10/22/24 00:01 Pt Ok To Bring Sevelamer Hcl From Home - Send To Rx For Verification XX 11/21/24 00:00 CLARIFY DAVID Non-Formulary Medication 3,200 mg 10/22/24 09:00 Sevelamer Hcl PO 11/21/24 08:59 TID DAVID Ondansetron HCl 4 mg 10/21/24 14:53 Ondansetron Inj 4 Mg/2 Ml Vial IV PUSH Q4H PRN Nausea Pantoprazole Sodium 40 mg 10/21/24 21:00 10/22/24 09:11 Pantoprazole Sodium Iv 40 Mg Vial IV PUSH 40 mg Q12HR DAVID Administration Perflutren Lipid Microsphere 0 ml 10/21/24 15:08 Perflutren Lipid Microspheres 1.5 Ml Vial Diluted To 10 Ml Total Volume IV PUSH 10/24/24 15:08 ONCE PRN adequate visualization Protocol Polyethylene Glycol 17 gm 10/22/24 09:00 10/22/24 09:11 Polyethylene Glycol 3350 17 Gm Powd.Pack PO 17 gm QAM DAVID Administration Tamsulosin HCl 0.4 mg 10/22/24 21:00 Tamsulosin Hcl 0.4 Mg Capsule PO QHS [facility] Radiology Results: ITS Impressions Chest X-Ray 10/21/24 10:50 Impression: Moderate central pulmonary edema pattern. Labs Labs: Laboratory Results - last 24 hr 10/21/24 10/21/24 10/21/24 10:35 13:45 13:53 WBC RBC Hgb Hct MCV MCH MCHC RDW Plt Count MPV Immature Gran % (Auto) Neut % (Auto) Lymph % (Auto) [place] % (Auto) Eos % (Auto) Baso % (Auto) Lymph # (Auto) [place] # (Auto) Eos # (Auto) Baso # (Auto) Abs Immat Gran (auto) Absolute Neuts (auto) Absolute Nucleated RBC Nucleated RBC % Sodium Potassium Chloride Carbon Dioxide Anion Gap BUN Creatinine Estim Creat Clear Calc Estimated GFR Glucose POC Capillary Glucose Calcium Phosphorus Magnesium Total Bilirubin AST ALT Alkaline Phosphatase NT-Pro-B Natriuret Pep > 10288 H Total Protein Albumin Hep Bs Antigen Hep Bs Antibody Influenza A (RT-PCR) Negative Influenza B (RT-PCR) Negative RSV (RT-PCR) Negative SARS-CoV-2 RNA (RT-PCR) Negative Blood Type O Positive Antibody Screen Negative Crossmatch See Detail 10/21/24 10/21/24 10/21/24 16:52 20:13 21:55 WBC RBC Hgb 9.2 L Hct 29.8 L MCV MCH MCHC RDW Plt Count MPV Immature Gran % (Auto) Neut % (Auto) Lymph % (Auto) [place] % (Auto) Eos % (Auto) Baso % (Auto) Lymph # (Auto) [place] # (Auto) Eos # (Auto) Baso # (Auto) Abs Immat Gran (auto) Absolute Neuts (auto) Absolute Nucleated RBC Nucleated RBC % Sodium Potassium Chloride Carbon Dioxide Anion Gap BUN Creatinine Estim Creat Clear Calc Estimated GFR Glucose POC Capillary Glucose 98 Calcium Phosphorus Magnesium Total Bilirubin AST ALT Alkaline Phosphatase NT-Pro-B Natriuret Pep Total Protein Albumin Hep Bs Antigen Negative Hep Bs Antibody Positive Influenza A (RT-PCR) Influenza B (RT-PCR) RSV (RT-PCR) SARS-CoV-2 RNA (RT-PCR) Blood Type Antibody Screen Crossmatch 10/22/24 10/22/24 10/22/24 04:41 07:29 08:28 WBC 5.8 RBC 2.94 L Hgb 9.3 L Hct 29.9 L MCV 101.7 H MCH 31.6 MCHC 31.1 L RDW 18.6 H Plt Count 204 MPV 10.7 H Immature Gran % (Auto) 0.9 H Neut % (Auto) 77.9 H Lymph % (Auto) 5.2 L [place] % (Auto) 13.4 H Eos % (Auto) 1.4 Baso % (Auto) 1.2 Lymph # (Auto) 0.30 L [place] # (Auto) 0.8 H Eos # (Auto) 0.1 Baso # (Auto) 0.1 Abs Immat Gran (auto) 0.05 H Absolute Neuts (auto) 4.5 Absolute Nucleated RBC 0.040 H Nucleated RBC % 0.7 H Sodium 136 L Potassium 4.2 Chloride 97 L Carbon Dioxide 36 H Anion Gap 3 L BUN 25 H Creatinine 4.80 H Estim Creat Clear Calc 13 Estimated GFR 12 L Glucose 140 H POC Capillary Glucose 121 H Calcium 9.2 Phosphorus 3.5 Magnesium 2.1 Total Bilirubin 0.5 AST 12 L ALT 10 Alkaline Phosphatase 68 NT-Pro-B Natriuret Pep Total Protein 6.0 L Albumin 3.9 Hep Bs Antigen Hep Bs Antibody Influenza A (RT-PCR) Influenza B (RT-PCR) RSV (RT-PCR) SARS-CoV-2 RNA (RT-PCR) Blood Type Antibody Screen Crossmatch
[2024-10-22 11:17] LABS: Glucose Point of Care 132 mg/dl (65-105)
--- NOTE | 2024-10-22 11:32 | ECG_ITS ---
Test Date: 2024-10-22 13:01:17 Measurements Intervals [place] Rate: 65 P: 0 NV: 0 QRS: -49 QRSD: 143 T: -31 QT: 481 QTc: 502 Interpretive Statements ATRIAL FIBRILLATION INDETERMINATE AXIS RIGHT BUNDLE BRANCH BLOCK [120+ ms QRS DURATION, UPRIGHT V1, 40+ ms S IN I/aVL/V4/V5/V6] ST depressions in lateral leads consistent with ischemia Compared to ECG 10/21/2024 10:01:22 Ventricular premature complex(es) no longer present Aberrant conduction of supraventricular beat(s) no longer present Electronically Signed On 10-27-2024 10:18:59 [employer] by Wei Tran M.D.
[2024-10-22 12:12] LABS: Glucose Point of Care 136 mg/dl (65-105)
[2024-10-22 12:38] LABS: Troponin I 0.084 ng/mL (0.000-0.034)
--- NOTE | 2024-10-22 14:41 | PM.CNCAR ---
Assessment and Plan Assessment and plan (1) Sinus pause: Code(s): I45.5 - Other specified heart block Status: Acute (2) Syncope: Code(s): R55 - Syncope and collapse Status: Acute Plan 1. Asystolic sinus pause 2. ESRD on HD 3. CAD 4. Anemia -Reviewed his echo shows normal LV systolic function -I think he will need permanent pacemaker for his symptomatic asystolic sinus pause -unfortunately we do not have the capability to do a permanent pacemaker at [facility] tomorrow so will need him to be transferred out -I would keep transcutaneous pads in place -consider starting him on low-dose dopamine History of Present Illness History of Present Illness Consult date/time: 10/22/24 14:41 Reason For Visit: CHF/Hypoxia/Anemia Narrative: 79-year-old male past medical history of diabetes, CAD, COPD, anemia, and end-stage renal disease on hemodialysis presents the hospital after syncope. Patient was in dialysis when he passed out. He was found to be hypoxic with complaints of shortness of breath. He had an episode of a sinus pause in the morning which he was symptomatic from. Cardiology consulted to help in further mgt. I reviewed telemetry; he had several pauses the longest of them being 6.6 second Review of Systems Review of Systems: As per HPI. All systems reviewed & are unremarkable except as noted in HPI and below Constitutional: Constitutional: Reports no additional constitutional complaints ENT: Reports system reviewed and no additional complaints, except as documented Cardiovascular: Cardiovascular: Reports no additional cardiovascular complaints Respiratory: Respiratory: Reports no additional respiratory complaints Gastrointestinal: Gastrointestinal: Reports no additional gastrointestinal complaints Neurologic: Reports system reviewed and no additional complaints, except as documented [facility] Past Medical History Medical History Obstructive sleep apnea Insulin dependent type 2 diabetes mellitus Chronic obstructive pulmonary disease Coronary artery disease Benign prostatic hyperplasia Peripheral vascular disease Internal hemorrhoid, bleeding Gastritis Anemia End-stage renal disease on hemodialysis History of colon polyps Environmental allergies Vitamin D deficiency Dyslipidemia Essential (primary) hypertension Surgical History Surgical History History of hemorrhoidectomy Anorectal evaluation under anesthesia and excisional hemorrhoidectomy x3 12/14/23 SAW S/P peripheral artery angioplasty (~03/2023) status post balloon angioplasty of bilateral common and external iliac arteries status post left iliofemoral endarterectomy Arteriovenous fistula of left upper extremity (~2018) History of appendectomy (~1963) History of coronary artery bypass graft (~2013) Family History Family History Mother Diabetes mellitus Acute myocardial infarction Family history of congestive heart failure Father Hypertension Social History Social History Social History: Surrogate medical decision maker: Wilian Yuni, sibling. Code status: Full code. Caffeine- daily Smoking packs per day: 10 Smoking cigarettes per day: 200.0 Years smoked: 10 Smoking pack-years: 100.00 Smoking status: Former smoker Tobacco type: cigarettes and pipe Second hand tobacco smoke exposure: No Smoking end date: 10/22/13 Alcohol intake: current Drinks per week: 1 Alcohol use details: Maybe 2-3 per year Substance use: former Substance use type: prescription drug Do You Feel Safe in your Home?: Yes Lack of Transportation: No Lack of Food: Never True Current Housing: I Have Housing Concerned About Future Housing: No Difficulty Paying Gas/Electric Bills: No Difficulty Paying for Meds: No Currently Unemployed: No Education: Decline to Answer Difficulty w/ Childcare or Family Care: No Living arrangements: with family Occupation/Education: retired Additional occupation/education comments: Retired from the [employer]. Spiritual care concerns: No Agree to blood products: Yes Meds Home Medications and Allergies Home Medications ?Medication ?Instructions ?Recorded ?Confirmed ?Type aspirin 81 mg tablet,delayed 81 mg PO DAILY 10/31/21 10/21/24 History release atorvastatin 20 mg tablet 20 mg PO QHS 10/31/21 10/21/24 History carvedilol 25 mg tablet 25 mg PO BID 10/31/21 10/21/24 History dulaglutide 1.5 mg/0.5 mL 1.5 mg subcut WEEKLY 10/31/21 10/21/24 History subcutaneous pen injector (Trulicity) insulin lispro 100 unit/mL 4 unit subcut .TIDAC 10/31/21 10/21/24 History subcutaneous pen loratadine 10 mg tablet (Claritin) 10 mg PO DAILY 10/31/21 10/21/24 History losartan 100 mg tablet 100 mg PO DAILY 10/31/21 10/21/24 History amlodipine 10 mg tablet 10 mg PO DAILY 11/07/23 10/21/24 History insulin glargine 100 unit/mL (3 6 unit subcut DAILY 11/07/23 10/21/24 History mL) subcutaneous pen (Lantus Solostar U-100 Insulin) sevelamer HCl 800 mg tablet 3,200 mg PO TID 11/07/23 10/21/24 History tamsulosin 0.4 mg capsule 0.4 mg PO QHS 11/07/23 10/21/24 History cinacalcet 90 mg PO DAILY 12/12/23 10/21/24 History cyclobenzaprine 10 mg tablet 10 mg PO TID PRN muscle spasm #30 10/07/24 10/21/24 Rx tabs Allergies Allergy/AdvReac Type Severity Reaction Status Date / Time No Known Allergies Allergy Verified 10/07/24 15:46 Vital Signs Vital Signs - 24 hr 10/21/24 15:20 10/21/24 15:31 10/21/24 16:18 Temperature 36.6 C 36.7 C Pulse Rate 66 73 Respiratory Rate 21 H 21 H Blood Pressure 145/67 H 119/74 Pulse Oximetry 95 98 Oxygen Delivery Oxygen Flow Rate 3 10/21/24 16:18 10/21/24 16:18 10/21/24 16:25 Temperature 36.5 C 36.6 C Pulse Rate 72 73 75 Respiratory Rate 18 18 Blood Pressure 146/64 H 127/66 135/68 Pulse Oximetry Oxygen Delivery Oxygen Flow Rate 10/21/24 16:25 10/21/24 16:25 10/21/24 16:26 Temperature 36.6 C 36.6 C Pulse Rate 75 75 75 Respiratory Rate 18 18 Blood Pressure 135/68 135/68 135/68 Pulse Oximetry Oxygen Delivery Oxygen Flow Rate 10/21/24 16:30 10/21/24 16:30 10/21/24 16:45 Temperature 36.6 C Pulse Rate 77 77 72 Respiratory Rate 18 Blood Pressure 137/64 137/64 143/52 H Pulse Oximetry Oxygen Delivery Oxygen Flow Rate 10/21/24 17:00 10/21/24 17:15 10/21/24 17:30 Temperature Pulse Rate 75 74 75 Respiratory Rate Blood Pressure 148/63 H 141/59 H 147/60 H Pulse Oximetry Oxygen Delivery Oxygen Flow Rate 10/21/24 17:45 10/21/24 18:00 10/21/24 18:15 Temperature Pulse Rate 79 79 78 Respiratory Rate Blood Pressure 136/74 172/90 H 168/84 H Pulse Oximetry Oxygen Delivery Oxygen Flow Rate 10/21/24 18:30 10/21/24 18:48 10/21/24 19:05 Temperature 36.6 C Pulse Rate 80 80 86 Respiratory Rate 18 Blood Pressure 163/79 H 150/78 H 155/73 H Pulse Oximetry Oxygen Delivery Oxygen Flow Rate 10/21/24 19:24 10/21/24 19:47 10/21/24 22:00 Temperature 36.8 C Pulse Rate 85 77 Respiratory Rate 22 H Blood Pressure 158/72 H Pulse Oximetry 94 94 Oxygen Delivery Nasal Cannula Oxygen Flow Rate 3 10/21/24 23:35 10/22/24 00:00 10/22/24 00:00 Temperature 37.1 C Pulse Rate 69 78 Respiratory Rate 22 H Blood Pressure 133/51 L Pulse Oximetry 94 93 Oxygen Delivery Nasal Cannula Oxygen Flow Rate 3 10/22/24 02:00 10/22/24 03:11 10/22/24 03:17 Temperature 36.8 C Pulse Rate 79 80 Respiratory Rate 22 H Blood Pressure 138/49 L Pulse Oximetry 93 93 Oxygen Delivery Nasal Cannula Oxygen Flow Rate 2 10/22/24 04:00 10/22/24 04:00 10/22/24 06:00 Temperature Pulse Rate 78 81 Respiratory Rate Blood Pressure Pulse Oximetry 95 Oxygen Delivery Nasal Cannula Oxygen Flow Rate 3 10/22/24 08:00 10/22/24 09:09 10/22/24 09:17 Temperature 36.4 C Pulse Rate 82 81 Respiratory Rate 22 H Blood Pressure 156/76 H Pulse Oximetry 96 94 Oxygen Delivery Nasal Cannula Oxygen Flow Rate 3 10/22/24 09:17 10/22/24 09:25 10/22/24 10:00 Temperature Pulse Rate 75 80 Respiratory Rate 18 18 Blood Pressure 144/48 H Pulse Oximetry Oxygen Delivery Oxygen Flow Rate 10/22/24 10:56 10/22/24 10:57 10/22/24 11:01 Temperature Pulse Rate Respiratory Rate Blood Pressure 148/67 H 152/62 H Pulse Oximetry 93 Oxygen Delivery Nasal Cannula Oxygen Flow Rate 5 10/22/24 11:12 10/22/24 12:00 10/22/24 14:31 Temperature 36.4 C Pulse Rate 57 L 69 Respiratory Rate 24 H 20 Blood Pressure 144/44 H Pulse Oximetry 96 95 Oxygen Delivery Nasal Cannula Oxygen Flow Rate 3 Exam Narrative: AF 97.6 152/62 80 18 96% 3L Gen - NARD lyin semi-recumbent in bed Chest - few basilar rhonchi o/w clear. CV - irregularly irregular; Tele showing AFib with controlled rate with a 6.7sec cardiac pause. Abd - Soft, NT/ND, Positive BS Ext - tracep pedal edema. thrilll and bruit left UE fistula. Neuro - Alert and oriented. Nonfocal exam. Psych - Nml mood and affect Skin - Warm and dry Results Labs and Meds 10/22/24 04:41 10/22/24 08:28 Lab results: Cardiac Enzymes 10/22/24 10/22/24 Range/Units 08:28 11:59 AST 12 L (17-59) U/L Troponin I 0.084 H* (0.000-0.034) ng/mL CBC 10/21/24 10/22/24 Range/Units 21:55 04:41 WBC 5.8 (4.5-10.0) K/mm3 RBC 2.94 L (4.6-6.20) M/mm3 Hgb 9.2 L 9.3 L (14.0-18.0) g/dL Hct 29.8 L 29.9 L (42.0-52.0) % Plt Count 204 (150-375) k/mm3 Lymph # (Auto) 0.30 L (0.9-3.2) K/mm3 Boundary # (Auto) 0.8 H (0.1-0.6) K/mm3 Eos # (Auto) 0.1 (0-0.3) K/mm3 Baso # (Auto) 0.1 (0.0-0.1) K/mm3 Comprehensive Metabolic Panel 10/22/24 Range/Units 08:28 Sodium 136 L (137-145) mmol/L Potassium 4.2 (3.4-5.0) mmol/L Chloride 97 L (98-107) mmol/L Carbon Dioxide 36 H (22-30) mmol/L BUN 25 H (9-20) mg/dL Creatinine 4.80 H (0.7-1.3) mg/dL Glucose 140 H (65-110) mg/dL Calcium 9.2 (8.4-10.2) mg/dL AST 12 L (17-59) U/L ALT 10 (6-50) U/L Alkaline Phosphatase 68 (38-126) U/L Total Protein 6.0 L (6.3-8.2) g/dL Albumin 3.9 (3.5-5.1) g/dL Intake and Output 10/21/24 10/22/24 10/22/24 23:59 07:59 15:59 Intake Total 350 1000 Output Total 2450 Balance -2100 1000 Intake: Intake (Blood Product) Amt 350 Leukocyte Reduced Rbc Unit 350 [id number] Oral 1000 Output: Net UF Removed 2450 Other: Number of Bowel Movements Today 1 Patient Weight 10/22/24 23:59 Weight 87.7 kg
[2024-10-22] MEDS: DOPamine 400 MG/D5W 250 ML 400 MG/250 ML BAG 8.22 MG IV CONT (15:10)
[2024-10-22 18:05] LABS: Glucose Point of Care 149 mg/dl (65-105)
--- NOTE | 2024-10-22 18:13 | PM.TDS ---
Transfer Discharge Sum: Prov Provider Date of admission: 10/22/24 09:46 Primary care physician: Mariza Carrion MD Admitting clinician: Florentino Ennis MD Consults: 10/21/24 14:57 Consult to Physician Routine Comment: Consulting Provider: Martina Booth Reason for consultation: volume overload with ESRD Has provider been notified: Yes 10/22/24 11:23 Consult to Physician Routine Comment: Spoke to Dr and notified him of consult Consulting Provider: Mj Campos call or contact centre team leader/MD group to consult: cardiology Reason for consultation: cardiac pause, code blue Has provider been notified: Yes DS: Admitting Diagnosis Discharge Date 10/22/24 Admitting Diagnosis Syncope DS: Discharge Diagnosis Discharge Diagnosis (1) Sinus pause: Code(s): I45.5 - Other specified heart block Status: Acute (2) Syncope: Code(s): R55 - Syncope and collapse Status: Acute (3) Acute respiratory distress: Code(s): R06.03 - Acute respiratory distress Status: Acute (4) Pulmonary edema: Code(s): J81.1 - Chronic pulmonary edema Status: Acute (5) Anemia: Code(s): D64.9 - Anemia, unspecified Status: Acute (6) End-stage renal disease on hemodialysis: Code(s): N18.6 - End stage renal disease; Z99.2 - Dependence on renal dialysis Status: Acute (7) COPD (chronic obstructive pulmonary disease): Qualifiers: COPD type: unspecified COPD Qualified Code(s): J44.9 - Chronic obstructive pulmonary disease, unspecified Code(s): J44.9 - Chronic obstructive pulmonary disease, unspecified Status: Chronic (8) Coronary artery disease: Code(s): I25.10 - Atherosclerotic heart disease of [place] coronary artery without angina pectoris Status: Acute (9) Diabetes: Code(s): E11.9 - Type 2 diabetes mellitus without complications Status: Acute Transfer Discharge Sum: Med Medications Active and Home Medications: Home Medications aspirin 81 mg tablet,delayed release 81 mg PO DAILY 10/31/21 [History Confirmed 10/21/24] atorvastatin 20 mg tablet 20 mg PO QHS 10/31/21 [History Confirmed 10/21/24] carvedilol 25 mg tablet 25 mg PO BID 10/31/21 [History Confirmed 10/21/24] dulaglutide 1.5 mg/0.5 mL subcutaneous pen injector (Trulicity) 1.5 mg subcut WEEKLY 10/31/21 [History Confirmed 10/21/24] insulin lispro 100 unit/mL subcutaneous pen 4 unit subcut .TIDAC 10/31/21 [History Confirmed 10/21/24] loratadine 10 mg tablet (Claritin) 10 mg PO DAILY 10/31/21 [History Confirmed 10/21/24] losartan 100 mg tablet 100 mg PO DAILY 10/31/21 [History Confirmed 10/21/24] amlodipine 10 mg tablet 10 mg PO DAILY 11/07/23 [History Confirmed 10/21/24] insulin glargine 100 unit/mL (3 mL) subcutaneous pen (Lantus Solostar U-100 Insulin) 6 unit subcut DAILY 11/07/23 [History Confirmed 10/21/24] sevelamer HCl 800 mg tablet 3,200 mg PO TID 11/07/23 [History Confirmed 10/21/24] tamsulosin 0.4 mg capsule 0.4 mg PO QHS 11/07/23 [History Confirmed 10/21/24] cinacalcet 90 mg PO DAILY 12/12/23 [History Confirmed 10/21/24] cyclobenzaprine 10 mg tablet 10 mg PO TID PRN muscle spasm #30 tabs 10/07/24 [Rx Confirmed 10/21/24] Active Medications Acetaminophen (Acetaminophen 325 Mg Tablet) 650 mg PO Q4H PRN PRN Reason: Mild Pain (1-3) or Fever Hydrocodone Bitart/Acetaminophen (Hydrocodone/Acetaminophen (*Crx) 5-325 Mg Tablet) 1 tab PO Q4H PRN PRN Reason: Pain Rated 4-6 Albuterol/Ipratropium (Ipratropium 0.5 Mg/Albuterol Sulfate 2.5 Mg Ampul.Neb 3 Ml) 3 ml INHALATION Q6HRT [facility] Last Admin: 10/22/24 14:30 Dose: 3 ml Amlodipine Besylate (Amlodipine Besylate 10 Mg Tablet) 10 mg PO DAILY [facility] Last Admin: 10/22/24 09:10 Dose: 10 mg Aspirin (Aspirin 81 Mg Enteric Tablet) 81 mg PO DAILY [facility] Last Admin: 10/22/24 09:10 Dose: 81 mg Atorvastatin Calcium (Atorvastatin 20 Mg Tablet) 20 mg PO QHS [facility] Cinacalcet (Cinacalcet 30 Mg Tablet) 90 mg PO DAILY [facility] Last Admin: 10/22/24 09:10 Dose: 90 mg Guaifenesin/Dextromethorphan (Guaifenesin/Dextromethorphan 10 Ml Udc) 10 ml PO Q4H [facility] Last Admin: 10/22/24 17:28 Dose: 10 ml Albumin Human (Albutein) 50 mls @ 999 mls/hr IVPB Q10M PRN PRN Reason: HYPOTENSION Stop: 11/20/24 14:59 Dopamine HCl/Dextrose (Dopamine 400 Mg/D5w 250 Ml) 400 mg in 250 mls @ 8.222 mls/hr IV CONT .Q24H [facility] Last Admin: 10/22/24 15:10 Dose: 2.5 mcg/kg/min, 8.22 mls/hr Insulin Aspart (Insulin Aspart (*Bkc) 100 Units/Ml) 4 units SUB-Q TIDWM [facility] Last Admin: 10/22/24 13:41 Dose: 4 units Insulin Glargine (Insulin Glargine (*Bkc) 100 Units/Ml) 6 units SUB-Q DAILY [facility] Last Admin: 10/22/24 09:15 Dose: 6 units Losartan Potassium (Losartan Potassium 100 Mg Tablet) 100 mg PO DAILY [facility] Last Admin: 10/22/24 09:10 Dose: 100 mg Miscellaneous Information (Pt Ok To Bring Sevelamer Hcl From Home - Send To Rx For Verification) 0 each XX CLARIFY [facility] Stop: 11/21/24 00:00 Non-Formulary Medication (Sevelamer Hcl) 3,200 mg PO TID [facility] Stop: 11/21/24 08:59 Ondansetron HCl (Ondansetron Inj 4 Mg/2 Ml Vial) 4 mg IV PUSH Q4H PRN PRN Reason: Nausea Pantoprazole Sodium (Pantoprazole Sodium Iv 40 Mg Vial) 40 mg IV PUSH Q12HR [facility] Last Admin: 10/22/24 09:11 Dose: 40 mg Perflutren Lipid Microsphere (Perflutren Lipid Microspheres 1.5 Ml Vial Diluted To 10 Ml Total Volume) 0 ml IV PUSH ONCE PRN; Protocol PRN Reason: adequate visualization Stop: 10/24/24 15:08 Polyethylene Glycol (Polyethylene Glycol 3350 17 Gm Powd.Pack) 17 gm PO QAM [facility] Last Admin: 10/22/24 09:11 Dose: 17 gm Tamsulosin HCl (Tamsulosin Hcl 0.4 Mg Capsule) 0.4 mg PO QHS [facility] Transfer Discharge Sum: Hosp Hospital Course Hospital course: Sam Morrissey is a 79 year old male with DM, CAD, COPD, anemia and ESRD here for weakness. Please see H&P for details. The following issues were addressed: (1) Sinus pause: Called to the room for Code Blue. Dtr in the room noted that patient sleeping then saw patient twitch with eyes rolling upward. No seizure like activity. Patient noted to have asystole by tele. Tech could not feel carotid pulse and RN and Tech performed CPR for about 20 sec when the patient regained consciousness. No post-ictal confusion. Patient had syncopal episode in dialysis prior to admission. He was given his home Coreg this morning. Glucose 130's. Etiology could be related to being off his NIV and/or beta quita therapy and/or SA node ischemia. EKG showing AFib with controlled rate and Rt BBB. Echo shwoing EF 60-65% with abnml septal wall motion and indeterminate LV diastolic fxn. Mild to mod MR, mod TR and mils pHTN. Potassium 4.2 and Mag 2.1. Troponin elevated at 0.084 and flat on repeat. Cardiology consulted who recommended transfer of patient to a tertiary care center since we could not provide the serviced the patient needed. Patient was agreeable and arrangements made. Patient was transferred in stable condition on 10/22/24. (2) Syncope: [place] related to above. (3) Acute respiratory distress: Likely secondary to pulmonary edema and acute on chronic anemia. Hgb was 7.6 and he was transfused 1U PRBC. He underwent HD on admission with removal of 2.5L. Oxygen requirement remained stable. (4) Pulmonary edema: Acute pulmonary edema related to fluid overload and probably a component of cardiac congestion if his syncopal episode in dialysis was related to cardiac pause. Received Lasix 80 mg x 1 in ED and underwent emergent dialysis that night. Echo as above. Used HD to control fluid status. Not on chronic diuretics since probably does not make urine (5) Anemia: Hgb 7.6. He was transfused 1 unit of RBCs with dialysis. No signs of acute bleeding. ED exam showing faint occult blood. Hgb climbed into the 9 range. (6) End-stage renal disease on hemodialysis: Nephrology consulted and patient underwent emergent dialysis. Continue HD to control fluid status. Appreciate nephrology input. We continued phosphate binder (7) COPD (chronic obstructive pulmonary disease): Stable. No wheezing. We continued Duonebs. (8) Coronary artery disease: Hx of CAD s/p CABG. We continued losartan, aspirin, Lipitor. Coreg stopped (9) Diabetes: A1c 4.6 in October 2023. The patient's blood glucose was monitored with AccuCheks covering with sliding scale. Hypoglycemia protocol was available as needed. Glucose remained well controlled. Lantus and Novolog resumed but dulaglutide held. He was transferred in stable condition. Time Spent with Patient Time attestation: Total time spent providing and/or coordinating transfer services: 60 minutes Total time spent: Greater than 30 minutes Exam Narrative: AF 97.6 152/62 80 18 96% 3L Gen - NARD lyin semi-recumbent in bed Chest - few basilar rhonchi o/w clear. CV - irregularly irregular; Tele showing AFib with controlled rate with a 6.7sec cardiac pause. Abd - Soft, NT/ND, Positive BS Ext - tracep pedal edema. thrilll and bruit left UE fistula. Neuro - Alert and oriented. Nonfocal exam. Psych - Nml mood and affect Skin - Warm and dry DS: Data Data Completed and Pending Labs on day of discharge: Labs from last 24 hours 10/22/24 10/22/24 10/22/24 18:00 16:03 14:29 WBC RBC Hgb Hct MCV MCH MCHC RDW Plt Count MPV Immature Gran % (Auto) Neut % (Auto) Lymph % (Auto) [place] % (Auto) Eos % (Auto) Baso % (Auto) Lymph # (Auto) [place] # (Auto) Eos # (Auto) Baso # (Auto) Abs Immat Gran (auto) Absolute Neuts (auto) Absolute Nucleated RBC Nucleated RBC % Sodium Potassium Chloride Carbon Dioxide Anion Gap BUN Creatinine Estim Creat Clear Calc Estimated GFR Glucose POC Capillary Glucose 149 H Calcium Phosphorus Magnesium Total Bilirubin AST ALT Alkaline Phosphatase Troponin I Pending 0.080 H* Total Protein Albumin Hep Bs Antibody 10/22/24 10/22/24 10/22/24 11:59 11:12 10:55 WBC RBC Hgb Hct MCV MCH MCHC RDW Plt Count MPV Immature Gran % (Auto) Neut % (Auto) Lymph % (Auto) [place] % (Auto) Eos % (Auto) Baso % (Auto) Lymph # (Auto) [place] # (Auto) Eos # (Auto) Baso # (Auto) Abs Immat Gran (auto) Absolute Neuts (auto) Absolute Nucleated RBC Nucleated RBC % Sodium Potassium Chloride Carbon Dioxide Anion Gap BUN Creatinine Estim Creat Clear Calc Estimated GFR Glucose POC Capillary Glucose 136 H 132 H Calcium Phosphorus Magnesium Total Bilirubin AST ALT Alkaline Phosphatase Troponin I 0.084 H* Total Protein Albumin Hep Bs Antibody 10/22/24 10/22/24 10/22/24 08:28 07:29 04:41 WBC 5.8 RBC 2.94 L Hgb 9.3 L Hct 29.9 L MCV 101.7 H MCH 31.6 MCHC 31.1 L RDW 18.6 H Plt Count 204 MPV 10.7 H Immature Gran % (Auto) 0.9 H Neut % (Auto) 77.9 H Lymph % (Auto) 5.2 L [place] % (Auto) 13.4 H Eos % (Auto) 1.4 Baso % (Auto) 1.2 Lymph # (Auto) 0.30 L [place] # (Auto) 0.8 H Eos # (Auto) 0.1 Baso # (Auto) 0.1 Abs Immat Gran (auto) 0.05 H Absolute Neuts (auto) 4.5 Absolute Nucleated RBC 0.040 H Nucleated RBC % 0.7 H Sodium 136 L Potassium 4.2 Chloride 97 L Carbon Dioxide 36 H Anion Gap 3 L BUN 25 H Creatinine 4.80 H Estim Creat Clear Calc 13 Estimated GFR 12 L Glucose 140 H POC Capillary Glucose 121 H Calcium 9.2 Phosphorus 3.5 Magnesium 2.1 Total Bilirubin 0.5 AST 12 L ALT 10 Alkaline Phosphatase 68 Troponin I Total Protein 6.0 L Albumin 3.9 Hep Bs Antibody 10/21/24 10/21/24 10/21/24 21:55 20:13 16:52 WBC RBC Hgb 9.2 L Hct 29.8 L MCV MCH MCHC RDW Plt Count MPV Immature Gran % (Auto) Neut % (Auto) Lymph % (Auto) [place] % (Auto) Eos % (Auto) Baso % (Auto) Lymph # (Auto) [place] # (Auto) Eos # (Auto) Baso # (Auto) Abs Immat Gran (auto) Absolute Neuts (auto) Absolute Nucleated RBC Nucleated RBC % Sodium Potassium Chloride Carbon Dioxide Anion Gap BUN Creatinine Estim Creat Clear Calc Estimated GFR Glucose POC Capillary Glucose 98 Calcium Phosphorus Magnesium Total Bilirubin AST ALT Alkaline Phosphatase Troponin I Total Protein Albumin Hep Bs Antibody Positive
[2024-10-22 18:54] LABS: Troponin I 0.086 ng/mL (0.000-0.034)
--- NOTE | 2024-10-22 23:13 | PC.NURSE ---
At 1050, pt was asystole. Compressions were done for about 20 seconds before a heartbeat was felt and patient opened eyes. Dr Wahl was notified and at bedside. Pt asymptomatic. Cardiology consulted.
[2024-10-23 00:29] LABS: Glucose Point of Care 111 mg/dl (65-105)
== END 2024-10-22 19:40 | disposition short-term general hospital (02) | DRG 308 ==
LOC: ANHED 12:29 → ANHIMU 16:26
PROVIDERS: Internal Medicine Nephrology; Nurse Practitioner Gerontology; Student in an Organized Health Care Education/Training Program; Admitting Provider Internal Medicine; Emergency Provider Emergency Medicine; PCP Family Medicine; Visit Provider Internal Medicine
DX: I45.5 Other specified heart block (principal); I46.2 Cardiac arrest due to underlying cardiac condition; J81.0 Acute pulmonary edema; N18.6 End stage renal disease; J96.01 Acute respiratory failure with hypoxia; I12.0 Hypertensive chronic kidney disease with stage 5 chronic kidney disease or end stage renal disease; D63.1 Anemia in chronic kidney disease; E11.51 Type 2 diabetes mellitus with diabetic peripheral angiopathy without gangrene; E55.9 Vitamin D deficiency, unspecified; E11.22 Type 2 diabetes mellitus with diabetic chronic kidney disease; G47.33 Obstructive sleep apnea (adult) (pediatric); I25.10 Atherosclerotic heart disease of native coronary artery without angina pectoris; J44.9 Chronic obstructive pulmonary disease, unspecified; N40.0 Benign prostatic hyperplasia without lower urinary tract symptoms; Z99.2 Dependence on renal dialysis; Z20.822 Contact with and (suspected) exposure to COVID-19; Z95.1 Presence of aortocoronary bypass graft; Z79.82 Long term (current) use of aspirin; Z79.4 Long term (current) use of insulin; Z79.85 Long-term (current) use of injectable non-insulin antidiabetic drugs; Z90.49 Acquired absence of other specified parts of digestive tract; Z87.891 Personal history of nicotine dependence
CPT/HCPCS: 36415; 36430; 71045; 80053; 82948; 83735; 83880; 84100; 84484; 85014; 85018; 85025; 86706; 86850; 86900; 86901; 86923; 87340; 87637; 93005; 93306; 94640; 96361; 96365; 96366; 96375; 99285; A9270; G0257; G0378; J1265; J1815; J1940; J2470; J7030; P9016

== ENCOUNTER 2024-11-03 16:41 | Outpatient (CLI) | payer MEDICARE, OTHER, SELFPAY ==
--- NOTE | ~2024-11-03 | XR_ITS ---
Left Shoulder Technique: AP and scapular Y views were obtained. Clinical History: Pain Findings: No fracture or dislocation is seen. Osseous alignment is anatomic. The glenohumeral and acr omioclavicular joint spaces are preserved. Soft tissues are unremarkable, aside from vascular stent i n the left subclavian region. Impression: Unremarkable left shoulder radiographs. Reviewed, dictated and finalized at location . D SIGNAL DESIGN ENGINEER Impression: Unremarkable left shoulder radiographs.
--- NOTE | ~2024-11-03 | XR_ITS ---
XR cervical spine min 6V Ordering provider: Radha Carrion MD History: . M54.2 - Cervicalgia . Comparison: None. FINDINGS: VERTEBRAL BODIES: , Increased kyphosis. Loss of volume of C3, C4 and C5 suggestive of compression fra ctures.. DISK SPACES: Narrowing of the disc C3-C4, C4-C5, C5-C6 and C6-C7. Multilevel facet joint disease. Multilevel uncovertebral joint osteoarthritic changes. Right narrowin g of the intervertebral foramina PARASPINOUS SOFT TISSUES: No prevertebral soft tissue swelling. Bilateral carotid atherosclerotic vanessa nges. Postoperative changes in the mediastinum. IMPRESSION: Compression fracture of C3, C4 and C5 most likely chronic. Multilevel degenerative disc disease. Reviewed, dictated and finalized at location A. AGE [employer]OKER
--- NOTE | ~2024-11-03 | XR_ITS ---
Right Shoulder Technique: AP and scapular Y views were obtained. Clinical History: Pain Findings: No fracture or dislocation is seen. Osseous alignment is anatomic. The glenohumeral and acr omioclavicular joint spaces are preserved. Soft tissues are unremarkable. Impression: Unremarkable right shoulder radiographs. Reviewed, dictated and finalized at [facility]. NG DISORDER PSYCHOLOGIST Impression: Unremarkable right shoulder radiographs.
== END 2024-11-03 16:42 | disposition home or self-care (01) ==
LOC: MICIMG 16:42
PROVIDERS: PCP Family Medicine; Visit Provider Family Medicine
DX: M25.511 Pain in right shoulder (principal); M25.512 Pain in left shoulder; M50.30 Other cervical disc degeneration, unspecified cervical region; S12.201A Unspecified nondisplaced fracture of third cervical vertebra, initial encounter for closed fracture; S12.300A Unspecified displaced fracture of fourth cervical vertebra, initial encounter for closed fracture; S12.400A Unspecified displaced fracture of fifth cervical vertebra, initial encounter for closed fracture
CPT/HCPCS: 72052; 73030

== ENCOUNTER 2024-12-01 13:45 | Outpatient (RCR) | payer MEDICARE, OTHER, SELFPAY ==
--- NOTE | 2024-10-21 18:01 | PC.NURSE ---
Pt from ED to hemodialysis. Report received from ED RN. Pt currently getting blood transfusion in dialysis. Tele monitor applied
--- NOTE | 2024-11-05 14:21 | OPREHPOC ---
Outpatient Therapy Plan of Care This is a Multidisciplinary Plan of Care that may contain components documented by all disciplines (PT, OT, and ST.) PT Problem 1 PT Problem #1 Knowledge Deficit PT Goal 1 Goal / Goal Update 1. Pt to be IND with issued HEP. Target Visit 10 PT Problem 2 PT Problem #2 Impaired Range of Motion PT Goal 1 Goal / Goal Update 1. Pt to increase active shoulder ROM to 110 deg maría elena 2. Pt to increased cervical flexion/extension to 40 deg ea direction Target Visit 10 PT Problem 3 PT Problem #3 Impaired Functional Mobility PT Goal 1 Goal / Goal Update 1. Pt to be able to dress himself IND 2. Pt to demonstrate increased sitting tolerance to 10 mins with good posture and without support Target Visit 10
--- NOTE | 2024-11-05 14:22 | PTOPEVAL1 ---
Assessment and note entered by Tripp Tillman, PT, DPT Evaluation Information Assessment Status Evaluation Diagnosis neck pain ICD-10 Condition Codes (PT) Cervicalgia M54.2 Subjective Information Pt reports neck and shoulder pain. Pt is accompanied by his brother. Pt and his brother states he does nothing throughout the day other than sleep and watch TV. States he has a hard time getting dressed cause he cannot get his arm over his head. He uses a walker and cane to get around his home, he lives with brother. He is in dialysis T//. He is unable to cook, clean, or take care of himself anymore. States he is on high dose pain medication that makes his really drowsy. Pt enters clinic in WC and needs brothers assist to get to mat table. Imaging shows chronic cervical compression fracture. Reported Pain Level Pain Score 3: Self Report Assessment PT Clinical Summary Pt presents to therapy today for his initial evaluation with a diagnosis of neck and shoulder pain. Today he demonstrates poor posture with decreased response to cues for correct posture. Per history he has severe deconditioning and an overall poor mobility status. Extensive education was given today about posture awareness and frequent position changes to combat pain. Aside for poor posture he also demonstrates decreased cervical ROM in all directions. He has decreased active shoulder strength possibly indicating a chronic RTC injury, he has normal maría elena shoulder ROM passively. Skilled therapy services are indicated to address deficits noted above and to improve overall functional mobility. Plan of Care Interventions Electrical Stimulation,Gait Training,Hot Pack/Cold Pack,Manual Therapy,Neuro Re-education,Patient/ Caregiver Education,Therapeutic Activities, Therapeutic Exercise PT Services Indicated Yes Treatment Frequency and 2x/wk for 8 visits Duration These treatments will address the objective and functional deficits as defined above. The patient will be advanced safely and appropriately in order for the patient to progress towards his/her prior level of function. Additional exercises will be introduced and as well as a comprehensive home exercise program upon discharge, if needed, ?to ensure carryover of functional gains achieved in the clinic. This treatment plan has been reviewed and agreement upon by the patient.
--- NOTE | 2024-11-19 08:41 | PCPTNOTE ---
Patient did not show up for scheduled appointment this date.
--- NOTE | 2024-11-26 14:36 | PCPTNOTE ---
Pts appointment had to be cancelled d/t the treatment therapist being out of the office d/t illness.
--- NOTE | 2024-12-04 10:47 | PCPTNOTE ---
Patient was cancelled 12/03/24 due to therapist out with illness.
--- NOTE | 2024-12-16 09:27 | PTOPDC ---
Assessment and note entered by Tripp Tillman, PT, DPT Evaluation Information Assessment Status Discharge - Pt Not Present Diagnosis neck pain ICD-10 Condition Codes (PT) Cervicalgia M54.2 Subjective Information Pts brother came into the clinic to cancel all his remaining appointments. States his brother was recently admitted to the hospital and will get going to a senior living. Assessment PT Clinical Summary Pt completed 6 visits of skilled therapy. He will be discharged at this time.
== END 2024-12-16 14:03 | disposition home or self-care (01) ==
LOC: ANHGOSHPT 13:45
PROVIDERS: PCP Family Medicine; Visit Provider Family Medicine
DX: M54.2 Cervicalgia (principal)
CPT/HCPCS: 97110; 97140; 97161; 97530

== ENCOUNTER 2024-12-09 07:26 | Inpatient (IN) | payer MEDICARE, OTHER, SELFPAY ==
[2024-12-09] VITALS (30 sets, daily range): BP systolic 92–127; BP diastolic 47–86; PULSE 60–96; RESP 16–20; TEMP 36.4–37; O2SAT 90–100; BMI 31.9; BMI 29.6
--- NOTE | ~2024-12-09 | XR_ITS ---
EXAMINATION: XR chest 1V portable DATE: 12/09/2024 08:13 INDICATION: Shortness of breath, cough and wheezing TECHNIQUE: frontal view of the chest was obtained. COMPARISON: Chest radiograph dated 10/22/2024 FINDINGS: Mild airspace opacities at the left lower lung zone. Very small pleural effusions tracking along the inferolateral margin of the fissures. No pulmonary edema or pneumothorax. Heart size is normal. Media n sternotomy wires and mediastinal surgical clips are seen, likely from prior coronary artery bypass grafting. Left pectoral implant couple ekg monitor. IMPRESSION: 1. Mild opacity left lower lung zone which could represent atelectasis or pneumonia. 2. Very small bilateral pleural effusions. Reviewed, dictated and finalized at location A. ESTATE MANAGEMENT SPECIALIST IMPRESSION: 1. Mild opacity left lower lung zone which could represent atelectasis or pneum onia. 2. Very small bilateral pleural effusions.
--- NOTE | ~2024-12-09 | XR_ITS ---
Portable chest x-ray Comparison: 12/09/2024 Clinical History: Proximal Findings: Probable mild central congestive change and possible minimal interstitial edema. Cardiome diastinal silhouette is stable, with loop recorder. Bones and soft tissues are unremarkable. Impression: Central congestive change and possible minimal interstitial edema. Stable cardiomegaly, status post median sternotomy with loop recorder. Reviewed, dictated and finalized at location . [facility] Impression: Central congestive change and possible minimal interstitial edema. Stable cardiomegaly, status post median sternotomy with loop recorder.
--- NOTE | 2024-12-09 07:36 | ECG_ITS ---
Test Date: 2024-12-09 07:36:39 Measurements Intervals [place] Rate: 71 P: 0 NH: 0 QRS: 155 QRSD: 146 T: -52 QT: 447 QTc: 489 Interpretive Statements ATRIAL FIBRILLATION RIGHT BUNDLE BRANCH BLOCK LEFT POSTERIOR FASCICULAR BLOCK ST-T WAVE ABNORMALITY IN ANTEROLAT/INF LEADS- CONSIDER ISCHEMIA BASELINE ARTIFACT- I, II, AVR, AVF, V1-V6 ABNORMAL ECG Compared to ECG 10/22/2024 13:01:17 NO SIGNIFICANT CHANGE Electronically Signed On 12-09-2024 10:56:19 ASSISTANT PRINTER FLOOR COVERING by Chiki Parra D.O.
--- OUTSIDE RECORDS SUMMARY | 2024-12-09 07:48 | XMS_ITS ---
Author Organization [facility] Address [address] [place] [id number] Care Team Providers Care Canvas Repairer Name Role Phone Efren Hoyos MD Unavailable Dank Hicks MD Unavailable [phone] Mariza Carrion MD Primary Care Provider Dialysis Access Sites Type Status Location Placement Date Removal Da te AV fistula Active Left Upper Arm - Anterior AV fistula Inactive 10/23/2024 Procedures Procedure Name Priority Date/Time Associated Diagnosis Comments POCT GLUCOSE Routine 11/24/2024 10:01 AM [employer] Type 2 diabetes mellitus with hyperglycemia, with long-term current use of insulin (CMS/[facility]) POCT HEMOGLOBIN A1C Routine 11/24/2024 1 0:01 AM [employer] Type 2 diabetes mellitus with hyperglycemia, with long-term current use of insulin (CMS/[facility]) DEVICE CHECK - IN OFFICE Routine 11/05/2024 1:22 PM [employer]ER Cardiac pacemaker in situ Asystole (CMS/HCC) (HCC) Syncope and collapse Symptomatic bradycardia POCT GLUCOSE DEVICE Routine 10/25/2024 1 2:56 PM [employer]ER POCT GLUCOSE DEVICE Routine 10/25/2024 8 :10 AM [employer]ER POCT GLUCOSE DEVICE Routine 10/25/2024 7 :43 AM [employer]ER EGFR Routine 10/25/2024 5:48 AM [employer]ER BASIC METABOLIC PANEL Routine 10/25/2024 5:48 AM [employer]ER CBC WITHOUT DIFFERENTIAL Routine 10/25/2024 5:48 AM [employer]ICER POCT GLUCOSE DEVICE Routine 10/25/2024 2 :25 AM [employer]ER POCT GLUCOSE DEVICE Routine 10/24/2024 8 :31 PM [employer]ICER POCT GLUCOSE DEVICE Routine 10/24/2024 4 :33 PM [employer]ER POCT GLUCOSE DEVICE Routine 10/24/2024 2 :03 PM [employer] OFFICER LEADLESS, SINGLE CHAMBER PACEMAKER (PPM) INSERTION Routine 10/24/2024 1:36 PM [employer]ER Syncope and collapse POCT GLUCOSE DEVICE Routine 10/24/2024 1 1:26 AM [employer]ICER POCT GLUCOSE DEVICE Routine 10/24/2024 7 :30 AM [employer]ER TSH Routine 10/24/2024 5:12 AM [employer]ER EGFR Routine 10/24/2024 4:59 AM [employer]ER BASIC METABOLIC PANEL Routine 10/24/2024 4:59 AM [employer]ICER CBC WITHOUT DIFFERENTIAL Routine 10/24/2024 4:59 AM [employer]ICER POCT GLUCOSE DEVICE Routine 10/24/2024 2 :39 AM [employer]ICER POCT GLUCOSE DEVICE Routine 10/23/2024 1 0:25 PM IN[employer]ICER POCT GLUCOSE DEVICE Routine 10/23/2024 8 :04 PM IN[employer] OFFICER POCT GLUCOSE DEVICE Routine 10/23/2024 5 :42 PM [employer]ICER HEPATITIS B SURFACE ANTIBODY (IMMUNE STATUS) Routine 10/23/2024 2:45 PM [employer] OFFICER HEPATITIS PANEL, ACUTE Routine 10/23/2024 2:45 PM INF[employer] OFFICER POCT GLUCOSE DEVICE Routine 10/23/2024 1 2:57 PM [employer]ER HEMODIALYSIS Routine 10/23/2024 9:13 AM [employer]ICER POCT GLUCOSE DEVICE Routine 10/23/2024 7 :47 AM [employer]ER EGFR Routine 10/23/2024 5:27 AM [employer]ICER DIFFERENTIAL AUTO Routine 10/23/2024 5:2 7 AM [employer]ER MAGNESIUM Routine 10/23/2024 5:27 AM [employer]ER PHOSPHORUS Routine 10/23/2024 5:27 AM [employer]ICER COMPREHENSIVE METABOLIC PANEL Routine 10/23/2024 5:27 AM [employer]ICER CBC WITH AUTO DIFFERENTIAL Routine 10/23/2024 5:27 AM INF[employer]ICER POCT GLUCOSE DEVICE Routine 10/23/2024 3 :04 AM [employer] OFFICER POCT GLUCOSE DEVICE Routine 10/22/2024 1 0:42 PM [employer]ICER POCT GLUCOSE DEVICE Routine 10/22/2024 8 :42 PM [employer]ER HM DIABETES EYE EXAM Routine 08/13/2024 9:40 AM CDT ALBUMIN CREATININE RATIO, URINE Routine 03/10/2024 8:46 AM CDT Type 2 diabetes mellitus with hyperglycemia, with long-term current use of insulin (CMS/HCC) LIPID PANEL Routine 03/03/2024 9:29 AM CDT Type 2 diabetes mellitus with hyperglycemia, with long-term current use of insulin (CMS/HCC) Hyperlipidemia associated with type 2 diabetes mellitus (HCC) CT ABDOMEN PELVIS WO CONTRAST Schedule Routine, Read Routine (OP Routine) 12/05/2021 11:53 AM [employer]ER End stage renal disease (CMS/HCC) ([facility]) from Last 3 Months or Most Recently Relevant to Health Maintenance Allergies No known active allergies Medications blood-glucose meter (FREESTYLE LITE METER) kit test blood sugars 5 times every day 1 kit 0 10/10/20 16 Active loratadine (CLARITIN) 5 mg/5 mL syrup take 10 milliliter by oral route take as needed 0 0 01/06/20 15 Active aspirin 81 mg tablet take 1 tablet by oral route every day 0 0 03/13/20 14 Active sildenafil (VIAGRA) 100 mg tablet take 1 tablet by oral route every day as needed approximately 1 hour before sexual activity 5 5 11/11/19 16 Active losartan (COZAAR) 100 mg tablet Take 1 tablet (100 mg total) by mouth daily. 90 tablet 1 04/03/20 18 Active blood glucose diagnostic (FREESTYLE LITE STRIPS) stripIndications: Type 2 diabetes mellitus with hyperglycemia, with long-term current use of insulin ([facility]) Use to test glucose 5 times daily 450 each 2 04/03/20 18 Active lancets (freestyle) 28 gauge miscIndications:T ype 2 diabetes mellitus with hyperglycemia, with long-term current use of insulin ([facility]) Use to test glucose 5 times daily 500 each 3 04/03/20 18 Active glucagon (glucagon) 1 mg kit Use as directed for low blood sugar. 1 kit 11 09/19/20 18 Active atorvastatin (LIPITOR) 20 mg tablet TAKE 1 TABLET DAILY 60 tablet 05/20/20 20 Active flash glucose sensor (FreeStyle Ross 2 Sensor) kitIndications:Ty pe 2 diabetes mellitus with hyperglycemia, with long-term current use of insulin ([facility]) Change sensor every 14 days 9 kit 3 09/10/20 20 Active Additional Information Patient not taking.Reported on 11/24/2024 Velphoro 500 mg tablet,chewable 05/24/20 22 Active sevelamer (RENAGEL) 800 mg tablet TAKE 4 TABLETS BY MOUTH THREE TIMES DAILY WITH MEALS AND 2 TABLETS TWICE DAILY WITH SNACKS 12/12/19 23 Active acetaminophen (TYLENOL) 325 mg tablet Take 2 tablets (650 mg total) by mouth every 6 (six) hours as needed 05/01/20 23 Active amLODIPine (NORVASC) 10 mg tablet Take 1 tablet (10 mg total) by mouth daily 08/23/20 23 Active finasteride (PROSCAR) 5 mg tablet Take 1 tablet (5 mg total) by mouth daily Active lidocaine (LIDODERM) 5 % Place 3 patches on the skin daily as needed 05/01/20 23 Active patiromer calcium sorbitex (VELTASSA) packet Take 1 packet (25.2 g total) by mouth daily 05/01/20 23 Active senna-docusate (PERICOLACE) 8.6-50 mg Take 2 tablets by mouth 2 (two) times a day 05/01/20 23 Active docusate sodium (COLACE) 100 mg capsule Take 1 capsule (100 mg total) by mouth every 12 (twelve) hours 12/18/19 24 Active alcohol swabs (Alcohol Prep Pads) pads, medicatedIndicati ons:Type 2 diabetes mellitus with hyperglycemia, with long-term current use of insulin ([facility]) Use pads 5 times daily 200 each 3 08/11/20 24 Active cyclobenzaprine (FLEXERIL) 10 mg tablet Take 1 tablet (10 mg total) by mouth 3 (three) times a day as needed for muscle spasms 10/07/20 24 Active sodium zirconium cyclosilicate (Lokelma) 10 gram packet MIX ONE PACKET WITH WATER AND DRINK BY MOUTH ONCE FOR 1 DOSE 04/17/20 24 Active Trulicity 1.5 mg/0.5 mL pen injectorIndicatio ns:Type 2 diabetes mellitus with hyperglycemia, with long-term current use of insulin ([facility]) Inject 0.5ML(1.5MG total) under the skin every 7 days 6 mL 3 11/24/19 25 Active LANTUS 100 unit/mL (3 mL) pen for injectionIndicati ons:type 2 diabetes mellitus Inject 4 Units under the skin daily 15 mL 11/24/19 25 026 Active pen needle, diabetic (BD Ruma 2nd Gen Pen Needle) 32 gauge x 5/32 needleIndications :Type 2 diabetes mellitus with hyperglycemia, with long-term current use of insulin ([facility]) Use to inject insulin 4x/day 350 each 3 11/24/19 25 Active insulin lispro (HumaLOG) 100 unit/mL pen for injectionIndicati ons:type 2 diabetes mellitus Inject 2-6 Units under the skin 3 (three) times a day 30 mL 2 11/25/19 25 026 Active latanoprost (XALATAN) 0.005 % ophthalmic solution 10/07/20 19 025 Discontin ued(Thera py completed ) folic acid (FOLVITE) 1 mg tablet Take 1 tablet (1 mg total) by mouth daily 05/01/20 23 025 Discontin ued(Thera py completed ) tamsulosin (FLOMAX) 0.4 mg extended release capsule Take 1 capsule (0.4 mg total) by mouth daily 05/04/20 23 025 Discontin ued(Thera py completed ) Trulicity 1.5 mg/0.5 mL pen injectorIndicatio ns:Type 2 diabetes mellitus with hyperglycemia, with long-term current use of insulin (HCC) Inject 0.5ML(1.5MG total) under the skin every 7 days 6 mL 3 08/11/20 24 025 Discontin ued(Reord er) LANTUS 100 unit/mL (3 mL) pen for injectionIndicati ons:type 2 diabetes mellitus Inject 4-8 Units under the skin daily 15 mL 2 08/11/20 24 025 Discontin ued(Reord er) insulin lispro (HumaLOG) 100 unit/mL pen for injectionIndicati ons:type 2 diabetes mellitus Inject 4-8 Units under the skin 3 (three) times a day Take 4-8 units before meals on a sliding scale max 30 units a day 30 mL 2 08/11/20 24 025 Discontin ued(Reord er) pen needle, diabetic (BD Ruma 2nd Gen Pen Needle) 32 gauge x 5/32 needleIndications :Type 2 diabetes mellitus with hyperglycemia, with long-term current use of insulin (HCC) Use to inject insulin 4x/day 350 each 3 08/11/20 24 025 Discontin ued(Reord er) methylPREDNISolon e (MEDROL DOSEPACK) 4 mg Dosepack FOLLOW PACKAGE DIRECTIONS 10/07/20 24 025 Discontin ued(Thera py completed ) insulin lispro (HumaLOG) 100 unit/mL pen for injectionIndicati ons:type 2 diabetes mellitus Inject 2-6 Units under the skin 3 (three) times a day Take 4-8 units before meals on a sliding scale max 30 units a day 30 mL 2 11/24/19 25 025 Discontin ued(Reord er) Active Problems Problem Noted Date Diagnosed Date Cardiac pacemaker in situ 11/04/2024 Overview (11/04/2024): Medtronic Micra AV2 Pacemaker. Dx; Symptomatic Bradycardia, Sinus Arrest, Syncope. DOI 10/24/2024-Loulou. Sisi-Fabiola. [employer]link remote. Glaucoma 10/23/2024 Benign prostatic hyperplasia without lower urinary tract symptoms 10/23/2024 Asystole ([facility]) 10/23/2024 Syncope and collapse 10/22/2024 ESRD on hemodialysis ([facility]) 12/09/2019 Assessment & Plan (09/03/2023 9:28 AM INF[employer]TRY [employer] OFFICER): Chronic problem. HD [facility] in [place]: //Saturdays. LUE fistula. Assessment & Plan (03/05/2023 9:59 AM CDT): Chronic problem. HD [facility] in [place]: //Saturdays. LUE fistula. ESRD on dialysis 05/22/2019 Hyperlipidemia associated with type 2 diabetes fouzia victoria 05/22/2019 Assessment & Plan (11/24/2024 10:10 AM INF[employer] OFFICER): Chronic problem. Controlled on current Atorvastatin 20mg. Last lipid panel: 03/03/24 LDL=33, TG=75. Assessment & Plan (03/03/2024 8:45 AM CDT): Chronic problem. Controlled on current Atorvastatin 20mg. Last lipid panel: 03/05/23 LDL=57, EM=258. Will update labs today. Does not mychart. Verified phone #/address to contact re: results. Assessment & Plan (09/03/2023 9:28 AM INF[employer]TRY [employer] OFFICER): Chronic problem. Controlled on current Atorvastatin 20mg. Last lipid panel: 03/05/23 LDL=57, MD=410. Assessment & Plan (03/05/2023 9:53 AM CDT): Chronic problem. Controlled on current Atorvastatin 20mg. Last lipid panel: 12/05/21 LDL=36, MF=783. Will update labs today. Verified phone #/address to contact re: results. Assessment & Plan (11/02/2022 2:47 PM INF[employer]TRY [employer] OFFICER): Chronic, well controlled Low fat Low cholesterol diet Exercise Continue statin therapy with Atorvastatin Assessment & Plan (06/29/2022 2:18 PM CDT): Chronic, well controlled Low fat Low cholesterol diet Exercise Continue statin therapy Assessment & Plan (01/05/2022 2:37 PM CDT): Chronic problem. On statin therapy, no changes. Assessment & Plan (06/02/2021 3:07 PM CDT): Goal of treatment , LDL cholesterol less than 100 ( less than 70 in patients with history of heart attacks and / or strokes ) NonHDL cholesterol ( total cholesterol minus HDL cholesterol ) goal less than 130 ( less than 100 in patients with history of heart attacks and / or strokes ) Low cholesterol, low fat diet was discussed and advised. Daily exercise Continue statin therapy with Atorvastatin Assessment & Plan (02/03/2021 3:01 PM CDT): On Lipitor Assessment & Plan (09/07/2020 2:26 PM INF[employer]TRY [employer] OFFICER): Goal of treatment , LDL cholesterol less than 100 ( less than 70 in patients with history of heart attacks and / or strokes ) NonHDL cholesterol ( total cholesterol minus HDL cholesterol ) goal less than 130 ( less than 100 in patients with history of heart attacks and / or strokes ) Low cholesterol, low fat diet was discussed and advised. Daily exercise On statin therapy Also Vascepa and Fenofibrate Assessment & Plan (02/12/2020 1:13 PM CDT): Follow up with cardiology as scheduled. Consider fasting lipid panel Assessment & Plan (12/09/2019 2:03 PM INF[employer]TRY [employer] OFFICER): Very high TG Add Johncepa Assessment & Plan (05/22/2019 1:47 PM CDT): Goal of treatment , LDL cholesterol less than 100 ( less than 70 in patients with history of heart attacks and / or strokes ) NonHDL cholesterol ( total cholesterol minus HDL cholesterol ) goal less than 130 ( less than 100 in patients with history of heart attacks and / or strokes ) Low cholesterol, low fat diet was discussed and advised. Daily exercise On statin therapy Coronary artery disease invo lving [place] coronary artery of [place] heart without angina pectoris 10/04/2017 Hx of CABG 10/04/2017 Class 2 severe obesity due t o excess calories with serious comorbidity and body mass index (BMI) of 38.0 to 38.9 in adult 05/22/2017 Assessment & Plan (10/24/2018 12:58 PM INFANTRY [employer] OFFICER): Making progress with diet efforts. Continue Assessment & Plan (02/08/2018 11:01 AM CDT): Importance of following diet and exercising discussed. Hypertension associated with diabetes 05/22/2017 Assessment & Plan (11/24/2024 10:11 AM INFANTRY [employer] OFFICER): Chronic problem. Controlled on current losartan 100mg daily, amlodipine 10mg daily Assessment & Plan (03/03/2024 8:45 AM CDT): Chronic problem. BP elevated upon arrival. Controlled on current Carvedilol 25mg bid, losartan 100mg daily. No changes at this time. Will update labs today. Does not mychart. Verified phone #/address to contact re: results. Assessment & Plan (09/03/2023 9:28 AM INFANTRY [employer] OFFICER): Chronic problem. BP elevated upon arrival. Controlled on current Carvedilol 25mg bid, losartan 100mg daily. No changes at this time. Assessment & Plan (03/05/2023 9:52 AM CDT): Chronic problem. Controlled on current Carvedilol 25mg bid, losartan 100mg daily. No changes at this time. Assessment & Plan (01/05/2022 2:37 PM CDT): Controlled on current medications, no changes. Assessment & Plan (02/03/2021 2:59 PM CDT): Pt on HD Adequate BP control Low salt diet. Assessment & Plan (02/12/2020 1:14 PM CDT): Continue current medication and follow up with renal Assessment & Plan (05/22/2019 1:48 PM CDT): Goal blood pressure is less than 140/85 Low salt diet recommended Daily aerobic exercise Continue current meds Assessment & Plan (02/20/2019 4:52 PM CDT): Controlled on current medications. Continue follow up with renal Assessment & Plan (10/24/2018 12:57 PM INF[employer]TRY [employer] OFFICER): Controlled. Continue current medication plan and follow up with cardiology Assessment & Plan (06/18/2018 2:30 PM CDT): BP controlled on current medication plan. Continue follow up with nephrology Assessment & Plan (02/08/2018 11:00 AM CDT): Continue same medication Assessment & Plan (12/11/2017 10:24 AM INF[employer]TRY [employer] OFFICER): Goal blood pressure is less than 140/85 Low salt diet recommended Daily aerobic exercise Continue current meds, including VIVIENNE-I or ARB Assessment & Plan (05/22/2017 11:32 AM CDT): Goal blood pressure is less than 140/85 Low salt diet recommended Daily aerobic exercise Continue current meds, including VIVIENNE-I or ARB Type 2 diabetes mellitus wit h hyperglycemia, with long-term current use of insulin 03/13/2014 Overview (01/26/2017): Insulin treated Type II diabetes mellitus Assessment & Plan (11/24/2024 10:16 AM INF[employer] OFFICER): Chronic problem, controlled on current regimen. A1c down from 5.1% 03/03/24 to now 4.9%. A1c running low & having some lows after meal time insulin. Will cut back doses on the Humalog & Lantus. Current medications: Trulicity 1.5mg weekly Lantus 4 units every morning Humalog 2 units before meals For sugars over 160: take 4 units For sugars over 200: take 6 units UTD on DM eye exam (08/13/24). UTD on labs. Strive for regular exercise (30min most days) and diet (get at least 4-5 servings of fruit and veggies daily, avoid processed foods, increase lean protein intake and decrease carb portions as well as fruit juices, regular soda & desserts). Watch carbs and simple sugars. Check the feet daily for skin breakdown and infection (sees recruiter regularly). Assessment & Plan (03/03/2024 9:19 AM CDT): Chronic problem, controlled on current regimen. A1c down from 5.7% 09/03/23 to now 5.1%. Has been using sliding scale on Lantus also. If over 140-150 taking 8 units. Has had 1 episode of hypoglycemia but A1c very low at 5.1%. Current medications: Trulicity 1.5mg weekly Lantus 4 units every morning Humalog 4 units before meals For sugars over 160: take 6 units For sugars over 200: take 8 units UTD on DM eye exam (01/2024). Will update labs today. Does not mychart. Verified phone #/address to contact re: results. Strive for regular exercise (30min most days) and diet (get at least 4-5 servings of fruit and veggies daily, avoid processed foods, increase lean protein intake and decrease carb portions as well as fruit juices, regular soda & desserts). Watch carbs and simple sugars. Check the feet daily for skin breakdown and infection (sees recruiter regularly). Assessment & Plan (09/03/2023 9:27 AM INFANTRY [employer] OFFICER): Chronic problem, controlled on current regimen. A1c 5.7% today. Current medications: Trulicity 1.5mg weekly Lantus 6 units every morning Humalog 4 units before meals For sugars over 160: take 6 units For sugars over 200: take 8 units UTD on DM eye exam (12/2022). UTD on labs. Strive for regular exercise (30min most days) and diet (get at least 4-5 servings of fruit and veggies daily, avoid processed foods, increase lean protein intake and decrease carb portions as well as fruit juices, regular soda & desserts). Watch carbs and simple sugars. Check the feet daily for skin breakdown and infection (sees recruiter regularly). Assessment & Plan (03/05/2023 10:13 AM CDT): Chronic problem, controlled on current regimen. Current medications: Trulicity 1.5mg weekly Lantus 6 units every morning Humalog 4 units before meals For sugars over 160: take 6 units For sugars over 200: take 8 units Seen by [facility] every 4-5 mos; letter sent to get copy of most recent eye exam. Strive for regular exercise (30min most days) and diet (get at least 4-5 servings of fruit and veggies daily, avoid processed foods, increase lean protein intake and decrease carb portions as well as fruit juices, regular soda & desserts). Watch carbs and simple sugars. Check the feet daily for skin breakdown and infection (sees recruiter regularly). Will update labs today. Verified phone #/address to contact re: results. Assessment & Plan (11/02/2022 2:43 PM INF[employer]TRY [employer] OFFICER): Well controlled, with risk of hypoglycemia Insuli regimen adjusted : Trulicity 1.5 mg weekly Lower Lantus to 6 units units qAM Continue with Humalog 4 units aC For sugars over 160, take 6 units For sugars over 200, take 8 units Assessment & Plan (06/29/2022 2:18 PM CDT): Hba1c was Lab Results Component Value Date HGBA1C 6.3 06/29/2022 today, indicating adequate DM control Goal Hba1c and blood glucose explained Diet and exercise were advised Prevention and treatment of hyypoglcyemia were discussed with the patient Blood glucose monitoring : continue CGM with FSL Adjustment to medications: Continue current Assessment & Plan (01/05/2022 2:41 PM CDT): Chronic problem, at goal but trending low normal during the day. Continue same Lantus dose as FBG in good range. Decrease HL by 1 unit aC: HL 3 units aC For sugars over 160, take 5 units For sugars over 200, take 7 units Assessment & Plan (06/02/2021 3:06 PM CDT): Hba1c was Lab Results Component Value Date HGBA1C 5.6 06/02/2021 today, indicating adequate DM control with risk of hypoglycemia Goal blood sugars in the 120-150 range , with Hb1c under 7.0 % was explained 1800 calorie, consistent carb diet recommended. No more than 30-45 grams of carbs per meal recommended, as well as avoiding high concentrated sweet drinks . 25-45 min daily exercise, combining both aerobic and resistance exercise recommended. The need to monitor blood glucose before meals and bedtime was discussed. Prevention and treatment of hyypoglcyemia discussed. Lower Lantus to 15 units once a day Take Humalog, 4 units with meals For sugars over 160, take 6 units For sugars over 200, take 8 units Start CGM with Freestyle Ross Assessment & Plan (02/03/2021 2:59 PM CDT): Hba1c was Lab Results Component Value Date HGBA1C 5.0 02/03/2021 today, indicating adequate DM control with risk of hypoglycemia Goal blood sugars in the 120-150 range , with Hb1c under 7.0 % was explained 1800 calorie, consistent carb diet recommended. No more than 30-45 grams of carbs per meal recommended, as well as avoiding high concentrated sweet drinks . 25-45 min daily exercise, combining both aerobic and resistance exercise recommended. The need to monitor blood glucose before meals and bedtime was discussed. Prevention and treatment of hyypoglcyemia discussed. Lower Lantus to 20 units daily Take Humalog, 5-6 units with meals. Will request Freestyle Ross Assessment & Plan (09/07/2020 2:26 PM INFANTRY WE[employer] OFFICER): Hba1c was Lab Results Component Value Date HGBA1C 5.0 09/07/2020 today, indicating Adequate DM control with risks of hypoglycemia Goal blood sugars in the 120-150 range , with Hb1c under 7.0 % was explained 1800 calorie, consistent carb diet recommended. No more than 30-45 grams of carbs per meal recommended, as well as avoiding high concentrated sweet drinks . 25-45 min daily exercise, combining both aerobic and resistance exercise recommended. The need to monitor blood glucose before meals and bedtime was discussed. Prevention and treatment of hyypoglcyemia discussed. Lower Lantus 25 units h Lower Humalog 5 units ac Start Freestyle Ross CGM Assessment & Plan (02/12/2020 1:15 PM CDT): BG controlled by report. Having issue getting Ross so will try for Dexcom. This will help us evaluate BG trends. Continue with the same dose of Lantus, Humalog and Trulicity. Assessment & Plan (12/09/2019 2:03 PM INFANTRY WEAP[employer] OFFICER): Your Hba1c today was: Lab Results Component Value Date HGBA1C 9.3 12/09/2019 meaning a 3 month average sugar of : 224 Your goal hba1c is under 7.0 to prevent longterm diabetes complications ( eye , kidney and nerve damage ) . Your goal sugars are in the 90-130 range Exercise recommendations: It is recommended that you do daily aerobic ( walking, riding a bike, swimming ) and resistance exercises ( light weight lifting, resistance band stretching ) for at least 30 minutes , most days of the week. If you can not walk, chair exercises for 10-15 min a day would help tremendously. As little as 15-20 minutes exercise , in one or two sessions a day, is still very helpful to improve your diabetes control . Diet recommendations: Eat small portion meals, trying not to consume more than 1800 calories a day . Try to eat not more than than 2 servings of carbs ( starches ) wiith your meals. Avoid soft drinks, including regular sodas , fruit juices and sweetened tea. Drink water instead. Eat plenty of green and leafy vegetables, including salads. Medications: Take your medications regularly. Setting phone alarms can help . Keep your medication on the kitchen dinner table, by the bedside table or by the sink where they are visible to you. If you are taking insulin : the insulin that you are currently using does not need to be refrigerated. Keep it where you can see it . Monitor your sugar levels with finger sticks regularly and keep a log sheet or book. Bring your sugar meter and /or a log book or log sheet to every office visit. Stay Lantus 30 units in the morning Take Humalog 6 units before meals For sugars over 160, take 7 units For sugars over 200 take 8 units For sugars over 250, take 9 units For sugars over 300 , take 10 units Fax sugars weekly Will request DEXCOM ( continous glucose monitoring ) Assessment & Plan (05/22/2019 1:46 PM CDT): Hba1c was Lab Results Component Value Date HGBA1C 7.4 % 05/22/2019 today, indicating adequate DM control 1800 calorie, consistent carb diet recommended 25-45 min daily exercise, combining both aerobic and resistance exercise recommended. The need to monitor blood glucose before meals and bedtime was discussed. Dose of basal and prandial insulin adjusted as follows: Continue current regimen Prevention and treatment of hyypoglcyemia discussed. Assessment & Plan (02/20/2019 4:54 PM CDT): A1c 5.8 (anemia ?) with out any hypoglycemia now. Advised to continue current DM plan. BG goals reviewed and advised to call if starts to experience any hypoglycemia. Assessment & Plan (10/24/2018 1:00 PM INFANTRY WEAP[employer] OFFICER): Stable BG pattern 100-140 reported since last adjustment to plan. No change today. BG goals reviewed. Advised to lower Lantus by 2 units if FBG are < 100 x 2 days/wk. For planned activity, reduce Humalog dose by 1/2 at preceding meal. 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 Your goal sugars are in the 90-130 range Daily aerobic ( walking, riding a bike, swimming ) and resistance exercises ( light weight lifting, resistance band stretching ) for at least 30 minutes is recommended If you can not walk, chair exercises for 10-15 min a day would help tremendously. As little as 15-20 minutes exercise , in one or two sessions a day, is still very helpful to improve your diabetes control . Eat small portion meals, trying not to consume no more than 1800 calories a day . Try to eat not more than than 3 servings of carbs ( starches ) wiith your meals. Avoid soft drinks, including regular sodas , fruit juices and sweetened tea. Drink water instead. Eat plenty of green and leafy vegetables, including salads. Take your medications regularly. Setting phone alarms can help . Keep your medication on the kitchen dinner table, by the bedside table or by the sink where they are visible to you. The insulin that you are currently using does not need to be refrigerated. Keep it where you can see it . Monitor your sugar levels with finger sticks regularly and keep a log sheet or book. Bring your sugar meter and /or a log book or log sheet to every office visit. Lower Lantus to 30 units once day only, in the morning Humalog, take 6 units with meals For sugars over 150, take 7 units For sugar over 200, take 8 units For sugars over 300, take 10 units Send log sugars every week Assessment & Plan (06/18/2018 2:29 PM CDT): A1c 6.7. Will not make change to current insulin plan. Increase in A1c mostly d/t poor, high carb food choices. Diet reviewed. Plan provided for Insulin while on prep for colonoscopy. Assessment & Plan (02/08/2018 10:59 AM CDT): Due to reported lows decrease Lantus to 26 bid. If FBG > 150 increase to 28 bid. Wants to try to lose wt. Will increase Trulicity to 1.5. Provided with samples. Advised to call in 3 weeks and will send rx at that time. Assessment & Plan (12/11/2017 10:47 AM INFANTRY WEAPONS OFFICER): Hba1c was .5.4 Today, 1800 calorie, consistent carb diet recommended 30 min daily exercise, combining both aerobic and resistance exercise is strongly recommended and needed as part of diabetes management plan. The need to monitor blood glucose before meals and bedtime was discussed. Take prandial insulin before meals based on carb intake and blood glucose readings. Prevention and treatment of hyypoglcyemia discussed. Hba1c is 5.4, which is low, with risk of more low sugars Check sugars before meals Do not skip meals Have a light snack in between meals Lower Lantus to 30 u before meals Take Humalog, 8 units before meals For sugars under 100, take only 6 units If sugars are persistenly under 100, lower your Lantus by 5 more unit. Stay on [facility] Assessment & Plan (05/22/2017 11:37 AM CDT): Hba1c was 6.0 today, indicating adequate DM control 1800 calorie, consistent carb diet recommended 30 min daily aerobic and resistance exercise recommended Foot care discused. Prevention and treatment of hyypoglcyemia discussed. Lower Lantus by 5 units , and lower Humalog by 2 units Abnormal liver enzymes 03/13/2014 Overview (01/26/2017): Abnormal liver enzyme Diabetic retinopathy 03/13/2014 Overview (01/26/2017): DR - Diabetic retinopathy Atherosclerosis of coronary artery 02/02/2014 Social History Tobacco Use Types Packs/Day Years Used Date Smoking Tobacco: Former Cigarettes Smokeless Tobacco: Never Tobacco Cessation:Counseling Given: Not Answered Alcohol Use Standard Drinks/Week Comments Yes 0 (1 standard drink = 0.6 oz pur e alcohol) [facility] [employer] Systemsities Answer Date Recorded In the past 12 months has [facility], [employer], oil, or water [employer] threatened to shut off services in your home? No 10/23/2024 Social Connection and Isolat ion Panel [NHANES] Answer Date Recorded In a typical week, how many times do you talk on the phone with family, friends, or neighbors? More than three times a week 10/23/2024 How often do you get togethe r with friends or relatives? More than three times a week 10/23/2024 How often do you attend [facility] or yarsanism services? Never 10/23/2024 Do you belong to any clubs o r organizations such as lutheran groups, unions, fraternal or athletic groups, or school groups? No 10/23/2024 How often do you attend meet ings of the clubs or organizations you belong to? Never 10/23/2024 Are you , , di vorced, , never , or living with a partner? 10/23/2024 Overall Financial Resource Strain (CARDIA) Answe r Date Recorded How hard is it for you to pa y for the very basics like food, housing, medical care, and heating? Not hard at all 10/23/2024 PHQ-2 Answer Date Recorded PHQ-2 Total Score (If total score is 3 or more points, staff should administer the PHQ-9) 0 11/02/2022 Hunger Vital Sign Answer Date Recorded Within the past 12 months, y ou worried that your food would run out before you got the money to buy more. Never true 10/23/19 25 Within the past 12 months, t he food you bought just didn't last and you didn't have money to get more. Never true 10/23/2024 PRAPARE - Transportation Answer Date Re corded In the past 12 months, has l ack of transportation kept you from medical appointments or from getting medications? No 11/2024 In the past 12 months, has l ack of transportation kept you from meetings, work, or from getting things needed for daily living? No 10/23/2024 Housing Stability Vital Sign Answer Arun e Recorded In the last 12 months, was t here a time when you were not able to pay the mortgage or rent on time? No 10/23/2024 In the past 12 months, how m any times have you moved where you were living? 0 10/23/2024 At any time in the past 12 m [facility], were you homeless or living in a half-way (including now)? No 10/23/2024 Personal Safety Answer Date Recorded Have you ever been in or are you currently in a harmful physical or emotional relationship or is someone making you feel afraid or unsafe? Denies 10/22/2024 Sex and Gender Information Value Date Recorded Sex Assigned at Not on file Legal Sex Male 7:27 PM INF[employer]TRY [employer] OFFICER Gender Identity Not on file Sexual Orientation Not on file Last Filed Vital Signs Vital Sign Reading Time Taken Comments Blood Pressure 102/58 11/24/2024 9:58 AM INFANTRY WE[employer] OFFICER Pulse 75 11/24/2024 9:58 AM INFANTRY WE[employer] OFFICER Temperature 36.3 C (97.3 F) 10/25/2024 2:15 PM INFANTRY WE[employer] OFFICER Respiratory Rate 20 11/24/2024 9:58 AM INFANTRY WE[employer]ONS OFFICER Oxygen Saturation 100% 10/25/2024 1:15 PM INFANTRY WEAPONS OFFICER Inhaled Oxygen Concentration - - Weight 91.3 kg (201 lb 4.5 oz) 10/22/2024 8:29 P M INF[employer]TRY [employer] OFFICER Height 170.2 cm (5' 7.01 ) 11/24/2024 9:58 AM CS T Body Mass Index 31.52 10/22/2024 8:29 PM INFANTRY WE[employer] OFFICER Results * POCT hemoglobin A1c (11/24/2024 10:01 AM INFANTRY WEAPONS OFFICER) Hemoglobin A1C, POC 4.9 4.0 - 5.6 % Blood 11/24/2024 10:0 1 AM INFANTRY WEAP[employer] OFFICER us Berthageno Pinto CUT OFF MACHINE HELPER POINT OF CARE TEST ORDERA BLES Final Result * (ABNORMAL) POCT glucose (11/24/2024 10:01 AM INFANTRY WEAPONS OFFICER) Glucose Blood, POC 131 mg/dL Blood 11/24/2024 10:0 1 AM INFANTRY WEAPONS OFFICER us Bertha Pinto CUT OFF MACHINE HELPER POINT OF CARE TEST ORDERA BLES Final Result * DEVICE CHECK - IN OFFICE (11/05/2024 1:22 PM INFANTRY WE[employer] OFFICER) Anatomical Region Laterality Modality Other Narrative 11/13/2024 2:43 PM INFANTRY WEAPONS OFFICER Medtronic Micra AV2 Pacemaker. Dx; Symptomatic Bradycardia, Sinus Arrest, Syncope. DOI 10/24/2024-[place]. [place]. [facility] remote. Supervising MD: Dr Harris. Patient seen in device clinic today s/p Micra AVR pacemaker implant. Interrogation of pacemaker demonstrated appropriate device function. Battery function-3.18VV, >10.0 years remaining to ANA LAURA. Electrode impedance, capture threshold, and measured r-wave are stable and appropriate. Presenting rhythm: VS (SR). Vpaced-4%. Medications;ASA 81 mg. No programming changes made to device settings. See scanned report. Office pacemaker f/u 6-8 weeks. [facility] remote. Yamel Cesar, RN Dank Hicks MD [facility] CARDIAC SERVICES PROC EDURES Final Result * POCT glucose (10/25/2024 12:56 PM INFANTRY WE[employer] OFFICER) Glucose, POC 74 70 - 199 mg/dL Blood 10/25/2024 12:5 6 PM INFANTRY WEAPONS OFFICER 10/25/2024 12:56 PM INFANTRY WEAPONS OFFICER Nabeel Paez LAB POCT ORDERABLES - DEVICE Final Result Performing Organization Address [facility] de Phone Number NIDIA [address] [place] [address] * POCT glucose (10/25/2024 8:10 AM INFANTRY WEAPONS OFFICER) Glucose, POC 100 70 - 199 mg/dL Blood 10/25/2024 8:10 AM INFANTRY WEAPONS OFFICER 10/25/2024 8:10 AM INFANTRY WEAPONS OFFICER Nabeel Paez [facility] POCT ORDERABLES - DEVICE Final Result Performing Organization Address [facility] [place] [address] [address] [place] [place] [address] * POCT glucose (10/25/2024 7:43 AM INFANTRY WEAPONS OFFICER) Glucose, POC 78 70 - 199 mg/dL Blood 10/25/2024 7:43 AM INFANTRY WEAPONS OFFICER 10/25/2024 7:43 AM INFANTRY WEAPONS OFFICER Nabeel Paez LAB POCT ORDERABLES - DEVICE Final Result Performing Organization Address [facility] Co de Phone Number NIDIA COTE [address] Department [place] [address] * (ABNORMAL) eGFR (10/25/2024 5:48 AM INFANTRY WE[employer] OFFICER) Pathologist [facility] [place] eGFR 9(L) >=60 mL/min/1. 73 m2 Comment: Interpretive Data Reference Interval Normal >/= 90 mL/min/1.73m2 Mildly decreased* 60 - 89 mL/min/1.73m2 Mildly to moderately decreased 45 - 59 mL/min/1.73m2 Moderately to severely decreased 30 - 44 mL/min/1.73m2 Severely decreased 15 - 29 mL/min/1.73m2 Kidney Failure < 15 mL/min/1.73m2 *Relative to young adult level Estimated glomerular filtration rate is determined by the 2020 CKD-EPI equation recommended by the National Kidney Foundation (A Unifying Approach to GFR Estimation: Recommendations of the NKF-ASK Task Force on Reassessing the Inclusion of Race in Diagnosing Kidney Disease, JASN 2020). The CKD-EPI equation should not be used for patients with unstable renal function and has not been validated in children and those over 70. Current interpretive data was last reviewed 2021. Blood 10/25/2024 5:48 AM INFANTRY WE[employer]ONS OFFICER 10/25/2024 6:03 AM INFANTRY WEAPONS OFFICER us Raisa Scherer NP LAB BLOOD ORDERABLES Jeaneth mari Result ALYSSAALANNAH COTE [address] Department [place] [address] * (ABNORMAL) CBC without differential (10/25/2024 5:48 AM INFANTRY WE[employer]ONS OFFICER) WBC 4.6 3.8 - 9.9 K/cumm Hgb 8.3(L) 13.0 - 17.5 g/dL [facility] Hct 28.1(L) 38.9 - 50.3 % [facility] Plt 187 150 - 400 K/cumm [facility] MPV 10.6 9.1 - 12.3 fL [facility] RBC 2.82(L) 4.30 - 5.80 M/cumm [facility] MCV 99.6(H) 81.3 - 96.4 fL [facility] MCH 29.4 27.1 - 33.3 pg [facility] MCHC 29.5(L) 32.3 - 35.7 g/dL [facility] RDW CV 16.3(H) 11.1 - 14.9 % [facility] RDW SD 60.4(H) 35.7 - 48.1 fL [facility] NRBC abs 0.00 0.00 - 0.01 K/cumm [facility] Blood 10/25/2024 5:48 AM INFANTRY WEAPONS OFFICER 10/25/2024 6:03 AM INFANTRY WEAPONS OFFICER us Raisa Scherer NP LAB BLOOD ORDERABLES Jeaneth mari Result NIDIA [address] Department [place] [address] * (ABNORMAL) Basic metabolic panel (10/25/2024 5:48 AM INFANTRY WE[employer] OFFICER) Sodium 135 135 - 145 mmol/L Potassium, pl 4.3 3.3 - 4.9 mmol/L [facility] Chloride 93(L) 97 - 110 mmol/L [facility] CO2 27 22 - 32 mmol/L [facility] Anion gap 15 2 - 15 mmol/L [facility] BUN 30(H) 6 - 25 mg/dL [facility] Creatinine 5.94(H) 0.80 - 1.30 mg/dL [facility] Glucose 76 70 - 199 mg/dL [facility] Comment: Interpretive Data Fasting glucose >/= 126 mg/dl is diagnostic for diabetes. Fasting is defined as no caloric intake for at least 8 hours. Fasting glucose between 100 mg/dl to 125 mg/dl is diagnostic of prediabetes. In a patient with classic symptoms of hyperglycemia or hyperglycemic crisis, a random glucose >/= 200 mg/dl is diagnostic for diabetes. In the absence of unequivocal hyperglycemia, results should be confirmed by repeat testing. The classification and Diagnosis of Diabetes Diabetes Care 202; 46: S19-S40. Current interpretive data was last revised 2022. Calcium 8.8 8.5 - 10.3 mg/dL [facility] Blood 10/25/2024 5:48 AM INFANTRY WEAPONS OFFICER 10/25/2024 6:03 AM INFANTRY WEAPONS OFFICER Raisa Scherer CUT OFF MACHINE HELPER LAB BLOOD ORDERABLES Jeaneth l Result Performing Organization Address [facility] Co de Phone Number NIDIA COTE [address] [facility] [employer] [place] [address] * POCT glucose (10/25/2024 2:25 AM INFANTRY WEAPONS OFFICER) Glucose, POC 81 70 - 199 mg/dL Blood 10/25/2024 2:25 AM INFANTRY WEAPONS OFFICER 10/25/2024 2:25 AM INFANTRY WEAPONS OFFICER Nabeel Paez DO [facility] POCT ORDERABLES - DEVICE Final Result Performing Organization Address [facility] de Phone Number ALYSSAALANNAH COTE [address] [address] [facility] [employer] [place] [address] * POCT glucose (10/24/2024 8:31 PM INFANTRY WEAPONS OFFICER) Glucose, POC 120 70 - 199 mg/dL Blood 10/24/2024 8:31 PM INFANTRY WEAPONS OFFICER 10/24/2024 8:31 PM INFANTRY WEAPONS OFFICER Nabeel HERRING POCT ORDERABLES - DEVICE Final Result Performing Organization Address [facility] de Phone Number NIDIA COTE [address] [place] [address] * POCT glucose (10/24/2024 4:33 PM INFANTRY WEAPONS OFFICER) Glucose, POC 85 70 - 199 mg/dL Blood 10/24/2024 4:33 PM INFANTRY WEAPONS OFFICER 10/24/2024 4:33 PM INFANTRY WEAPONS OFFICER Nabeel Paez DO [facility] POCT ORDERABLES - DEVICE Final Result Performing Organization Address [facility] de Phone Number ALYSSAALANNAH COTE [address] [address] * POCT glucose (10/24/2024 2:03 PM INFANTRY WEAPONS OFFICER) Glucose, POC 83 70 - 199 mg/dL Blood 10/24/2024 2:03 PM INFANTRY WEAPONS OFFICER 10/24/2024 2:03 PM INFANTRY WEAPONS OFFICER Nabeel [facility] POCT ORDERABLES - DEVICE Final Result Performing Organization Address [facility] Co de Phone Number [facility] [address] [facility] [employer] [place] [address] * POCT glucose (10/24/2024 11:26 AM INFANTRY WEAPONS OFFICER) Glucose, POC 85 70 - 199 mg/dL Blood 10/24/2024 11:2 6 AM INFANTRY WEAPONS OFFICER 10/24/2024 11:26 AM INFANTRY WEAPONS OFFICER [facility] POCT ORDERABLES - DEVICE Final Result Performing Organization Address [facility] de Phone Number ALYSSAALANNAH [address] [facility] [employer] [place] [address] * POCT glucose (10/24/2024 7:30 AM INFANTRY WEAPONS OFFICER) Glucose, POC 94 70 - 199 mg/dL Blood 10/24/2024 7:30 AM INFANTRY WEAPONS OFFICER 10/24/2024 7:30 AM INFANTRY WEAPONS OFFICER Nabeel [facility] POCT ORDERABLES - DEVICE Final Result Performing Organization Address [facility] Co de Phone Number [facility] [address] [place] [address] * TSH (10/24/2024 5:12 AM INFANTRY WEAPONS OFFICER) Thyroid Stimulating Hormone 0.48 0.30 - 4.20 mcIUnit/mL Blood 10/24/2024 5:12 AM INFANTRY WEAPONS OFFICER 10/24/2024 5:23 AM INFANTRY WEAPONS OFFICER Sherrill Christianson MD LAB BLOOD ORDERABLES Final Result Performing Organization Address [facility] Co de Phone Number NIDIA COTE [address] Department [place] [address] * (ABNORMAL) eGFR (10/24/2024 4:59 AM INFANTRY WE[employer]ONS OFFICER) eGFR 13(L) >=60 mL/min/1. 73 m2 Comment: Interpretive Data Reference Interval Normal >/= 90 mL/min/1.73m2 Mildly decreased* 60 - 89 mL/min/1.73m2 Mildly to moderately decreased 45 - 59 mL/min/1.73m2 Moderately to severely decreased 30 - 44 mL/min/1.73m2 Severely decreased 15 - 29 mL/min/1.73m2 Kidney Failure < 15 mL/min/1.73m2 *Relative to young adult level Estimated glomerular filtration rate is determined by the 2020 CKD-EPI equation recommended by the National Kidney Foundation (A Unifying Approach to GFR Estimation: Recommendations of the NKF-ASK Task Force on Reassessing the Inclusion of Race in Diagnosing Kidney Disease, JASN 2020). The CKD-EPI equation should not be used for patients with unstable renal function and has not been validated in children and those over 70. Current interpretive data was last reviewed 2021. Blood 10/24/2024 4:59 AM INFANTRY WEAPONS OFFICER 10/24/2024 5:23 AM INFANTRY WEAPONS OFFICER us Raisa Scherer CUT OFF MACHINE HELPER LAB BLOOD ORDERABLES Jeaneth l Result Performing Organization Address [facility]/ZIP Co de Phone Number NIDIA COTE [address] Department [place] [address] * (ABNORMAL) CBC without differential (10/24/2024 4:59 AM INFANTRY WEAPONS OFFICER) WBC 5.1 3.8 - 9.9 K/cumm Hgb 8.9(L) 13.0 - 17.5 g/dL [facility] Hct 29.9(L) 38.9 - 50.3 % [facility] Plt 188 150 - 400 K/cumm [facility] MPV 10.2 9.1 - 12.3 fL [facility] RBC 2.93(L) 4.30 - 5.80 M/cumm [facility] MCV 102.0(H) 81.3 - 96.4 fL [facility] MCH 30.4 27.1 - 33.3 pg [facility] MCHC 29.8(L) 32.3 - 35.7 g/dL [facility] CH RDW CV 16.8(H) 11.1 - 14.9 % [facility] RDW SD 62.6(H) 35.7 - 48.1 fL [facility] NRBC abs 0.00 0.00 - 0.01 K/cumm [facility] Blood 10/24/2024 4:59 AM INFANTRY WEAPONS OFFICER 10/24/2024 5:20 AM INFANTRY WEAPONS OFFICER us Raisa Scherer NP LAB BLOOD ORDERABLES Jeaneth mari Result [facility] [address] Department [place] [address] * (ABNORMAL) Basic metabolic panel (10/24/2024 4:59 AM INFANTRY WEAPONS OFFICER) Sodium 136 135 - 145 mmol/L Potassium, pl 4.2 3.3 - 4.9 mmol/L [facility] Chloride 94(L) 97 - 110 mmol/L [facility] CO2 31 22 - 32 mmol/L [facility] Anion gap 11 2 - 15 mmol/L [facility] BUN 20 6 - 25 mg/dL [facility] Creatinine 4.30(H) 0.80 - 1.30 mg/dL [facility] Glucose 80 70 - 199 mg/dL [facility] Comment: Interpretive Data Fasting glucose >/= 126 mg/dl is diagnostic for diabetes. Fasting is defined as no caloric intake for at least 8 hours. Fasting glucose between 100 mg/dl to 125 mg/dl is diagnostic of prediabetes. In a patient with classic symptoms of hyperglycemia or hyperglycemic crisis, a random glucose >/= 200 mg/dl is diagnostic for diabetes. In the absence of unequivocal hyperglycemia, results should be confirmed by repeat testing. The classification and Diagnosis of Diabetes Diabetes Care 202; 46: S19-S40. Current interpretive data was last revised 2022. Calcium 9.1 8.5 - 10.3 mg/dL NIDIA Blood 10/24/2024 4:59 AM INFANTRY WEAPONS OFFICER 10/24/2024 5:20 AM INFANTRY WEAPONS OFFICER Raisa Scherer CUT OFF MACHINE HELPER LAB BLOOD ORDERABLES Jeaneth l Result Performing Organization Address [facility] Co de Phone Number NIDIA [address] [employer] [place] [address] * POCT glucose (10/24/2024 2:39 AM INFANTRY WEAPONS OFFICER) Glucose, POC 123 70 - 199 mg/dL Blood 10/24/2024 2:39 AM INFANTRY WEAPONS OFFICER 10/24/2024 2:39 AM INFANTRY WEAPONS OFFICER Nabeel Paez [facility] POCT ORDERABLES - DEVICE Final Result Performing Organization Address [facility] de Phone Number [facility] [address] [address] [facility] [employer] [place] [address] * POCT glucose (10/23/2024 10:25 PM INFANTRY WEAPONS OFFICER) Glucose, POC 173 70 - 199 mg/dL Blood 10/23/2024 10:2 5 PM INFANTRY WEAPONS OFFICER 10/23/2024 10:25 PM INFANTRY WEAPONS OFFICER Naebel Paez [facility] POCT ORDERABLES - DEVICE Final Result Performing Organization Address [facility] Co de Phone Number [facility] [address] [address] [facility] [employer] [place] [address] * POCT glucose (10/23/2024 8:04 PM INFANTRY WEAPONS OFFICER) Glucose, POC 70 70 - 199 mg/dL Blood 10/23/2024 8:04 PM INFANTRY WEAPONS OFFICER 10/23/2024 8:04 PM INFANTRY WEAPONS OFFICER [facility] POCT ORDERABLES - DEVICE Final Result Performing Organization Address [facility] Co de Phone Number NIDIA COTE [id number] [address] [facility] [employer] [place] [address] * POCT glucose (10/23/2024 5:42 PM INFANTRY WEAPONS OFFICER) Glucose, POC 90 70 - 199 mg/dL Blood 10/23/2024 5:42 PM INFANTRY WEAPONS OFFICER 10/23/2024 5:42 PM INFANTRY WEAPONS OFFICER Result [facility] Nabeel Paez [facility] POCT ORDERABLES - DEVICE Final Result Performing Organization Address [facility] de Phone Number NIDIA COTE [address] [address] [facility] [employer] [place] [address] * Hepatitis panel, acute Blood (10/23/2024 2:45 PM INFANTRY WEAPONS OFFICER) Pathologist [facility] [place] Hep A IgM Nonreactive Nonreactive Comment: Interpretive Data: If Hep A IgM Ab is reported as Equivocal, a new sample should be drawn in two weeks for testing. Current interpretive data was last revised on 20. Hep B core IgM Nonreactive Nonreactive [facility] Comment: Interpretive Data If HepB Core IgM Ab is reported as Equivocal, a new sample should be drawn in two weeks for testing. Current interpretive data was last revised on 20. Hep C Ab Nonreactive Nonreactive [facility] Comment: Interpretive Data Nonreactive: Antibodies to HCV not detected. Does NOT exclude the possibility of recent exposure to HCV. Equivocal: Equivocal for HCV antibodies. Supplemental molecular testing will be automatically performed to determine infection status in accordance with current CDC screening recommendations. Reactive: Positive for HCV antibodies. This may represent current or past HCV infection. Supplemental molecular testing will be automatically performed to determine current infection status in accordance with current CDC screening recommendations. Interpretive data was last revised on 2020. HepBsAg Nonreactive Nonreactive [facility] Blood 10/23/2024 2:45 PM INFANTRY WEAPONS OFFICER 10/23/2024 2:46 PM INFANTRY WEAPONS OFFICER Result [facility] Sherrill Christianson MD LAB MICROBIOLOGY - GENERAL ORDERABLES Final Result Performing Organization Address [facility] [place] [address] [address] [facility] [employer] [place] [address] * Hepatitis B surface antibody (immune status) Blood (10/23/2024 2:45 PM INFANTRY WEAPONS OFFICER) HBsAb (immune status) Nonreactive Comment: Interpretive Data Nonreactive: This result is consistent with a lack of immunity to Hepatitis B Virus when used in the setting of routine screening. Equivocal: The immune status of the individual should be further assessed, if appropriate, after consideration of clinical status, risk factors, and additional diagnostic information. Reactive: This result is consistent with immunity to Hepatitis B Virus when used in the setting of routine screening. Current interpretive data was last revised on 20. Blood 10/23/2024 2:45 PM INFANTRY WEAPONS OFFICER 10/23/2024 2:46 PM INFANTRY WEAPONS OFFICER Sherrill Christianson MD LAB MICROBIOLOGY - GENERAL ORDERABLES Final Result Performing Organization Address [facility] [place] [address] [address] Department [employer] [place] [address] * (ABNORMAL) POCT glucose (10/23/2024 12:57 PM INFANTRY WEAPONS OFFICER) Glucose, POC 69(L) 70 - 199 mg/dL Blood 10/23/2024 12:5 7 PM INFANTRY WEAPONS OFFICER 10/23/2024 12:57 PM INFANTRY WEAPONS OFFICER us Nabeel Paez DO LAB POCT ORDERABLES - DEVICE Final Result Performing Organization Address [facility] [place] [address] [address] Department [employer] [place] [address] * POCT glucose (10/23/2024 7:47 AM INFANTRY WEAPONS OFFICER) Glucose, POC 81 70 - 199 mg/dL Blood 10/23/2024 7:47 AM INFANTRY WEAPONS OFFICER 10/23/2024 7:47 AM INFANTRY WEAPONS OFFICER us Sylvester Engel MD LAB POCT ORDERABLES - SALO CE Final Result Performing Organization Address [facility] Co de Phone Number NIDIA COTE [address] Department [place] [address] * (ABNORMAL) eGFR (10/23/2024 5:27 AM INFANTRY WEAPONS OFFICER) eGFR 11(L) >=60 mL/min/1. 73 m2 Comment: Interpretive Data Reference Interval Normal >/= 90 mL/min/1.73m2 Mildly decreased* 60 - 89 mL/min/1.73m2 Mildly to moderately decreased 45 - 59 mL/min/1.73m2 Moderately to severely decreased 30 - 44 mL/min/1.73m2 Severely decreased 15 - 29 mL/min/1.73m2 Kidney Failure < 15 mL/min/1.73m2 *Relative to young adult level Estimated glomerular filtration rate is determined by the 2020 CKD-EPI equation recommended by the National Kidney Foundation (A Unifying Approach to GFR Estimation: Recommendations of the NKF-ASK Task Force on Reassessing the Inclusion of Race in Diagnosing Kidney Disease, JASN 2020). The CKD-EPI equation should not be used for patients with unstable renal function and has not been validated in children and those over 70. Current interpretive data was last reviewed 2021. Blood 10/23/2024 5:27 AM INFANTRY WEAPONS OFFICER 10/23/2024 5:32 AM INFANTRY WEAPONS OFFICER us Raisa Scherer CUT OFF MACHINE HELPER LAB BLOOD ORDERABLES Jeaneth l Result Performing Organization Address [facility]/ZIP Co de Phone Number NIDIA COTE [address] Department [place] [address] * (ABNORMAL) Differential, auto (10/23/2024 5:27 AM INFANTRY WEAPONS OFFICER) Neutrophil abs 4.1 1.5 - 6.5 K/cumm Imm gran abs 0.1 0.0 - 0.1 K/cumm [facility] Lymphocyte abs 0.4(L) 0.8 - 3.3 K/cumm [facility] Monocyte abs 0.7 0.2 - 0.8 K/cumm [facility] Eosinophil abs 0.1 0.0 - 0.5 K/cumm [facility] Basophil abs 0.0 0.0 - 0.1 K/cumm [facility] Neutrophil pct 76.5 % [facility] Comment: Interpretive Data Percent cell count reference ranges are not reported, since discordance with absolute values may lead to misinterpretation of CBC data. Current Interpretive Data was last revised on 2018. Imm gran pct 1.1 % [facility] Comment: Interpretive Data Percent cell count reference ranges are not reported, since discordance with absolute values may lead to misinterpretation of CBC data. Current Interpretive Data was last revised on 2018. Lymphocyte pct 7.9 % [facility] Comment: Interpretive Data Percent cell count reference ranges are not reported, since discordance with absolute values may lead to misinterpretation of CBC data. Current Interpretive Data was last revised on 2018. Monocyte pct 12.7 % [facility] Comment: Interpretive Data Percent cell count reference ranges are not reported, since discordance with absolute values may lead to misinterpretation of CBC data. Current Interpretive Data was last revised on 2018. Eosinophil pct 1.1 % [facility] Comment: Interpretive Data Percent cell count reference ranges are not reported, since discordance with absolute values may lead to misinterpretation of CBC data. Current Interpretive Data was last revised on 2018. Basophil pct 0.7 % [facility] Comment: Interpretive Data Percent cell count reference ranges are not reported, since discordance with absolute values may lead to misinterpretation of CBC data. Current Interpretive Data was last revised on 2018. Blood 10/23/2024 5:27 AM INFANTRY WEAPONS OFFICER 10/23/2024 5:30 AM INFANTRY WEAPONS OFFICER us Raisa Scherer NP LAB BLOOD ORDERABLES Jeaneth mari Result NIDIA COTE [address] Department [place] [address] * (ABNORMAL) CBC with auto differential (10/23/2024 5:27 AM INFANTRY WEAPONS OFFICER) WBC 5.3 3.8 - 9.9 K/cumm Hgb 8.8(L) 13.0 - 17.5 g/dL [facility] Hct 28.9(L) 38.9 - 50.3 % [facility] Plt 179 150 - 400 K/cumm [facility] MPV 10.4 9.1 - 12.3 fL [facility] RBC 2.86(L) 4.30 - 5.80 M/cumm [facility] MCV 101.0(H) 81.3 - 96.4 fL [facility] MCH 30.8 27.1 - 33.3 pg [facility] MCHC 30.4(L) 32.3 - 35.7 g/dL [facility] RDW CV 17.2(H) 11.1 - 14.9 % [facility] RDW SD 63.7(H) 35.7 - 48.1 fL [facility] NRBC abs 0.00 0.00 - 0.01 K/cumm [facility] Blood 10/23/2024 5:27 AM INFANTRY WEAPONS OFFICER 10/23/2024 5:30 AM INFANTRY WEAPONS OFFICER Raisa Scherer CUT OFF MACHINE HELPER LAB BLOOD ORDERABLES Jeaneth l Result Performing Organization Address [facility] Co de Phone Number [facility] [address] [address] [place] [address] * Phosphorus (10/23/2024 5:27 AM INFANTRY WEAPONS OFFICER) Pathologist [facility] [place] Phosphorus, pl 4.5 2.3 - 4.5 mg/dL Blood 10/23/2024 5:27 AM INFANTRY WEAPONS OFFICER 10/23/2024 5:30 AM INFANTRY WEAPONS OFFICER Raisa Scherer CUT OFF MACHINE HELPER LAB BLOOD ORDERABLES Jeaneth l Result Performing Organization Address [facility] Co de Phone Number [facility] [address] [address] [facility] [employer] [place] [address] * Magnesium (10/23/2024 5:27 AM INFANTRY WEAPONS OFFICER) Pathologist [facility] [place] Magnesium 2.1 1.4 - 2.5 mg/dL Blood 10/23/2024 5:27 AM INFANTRY WEAPONS OFFICER 10/23/2024 5:30 AM INFANTRY WEAPONS OFFICER us Raisa Scherer CUT OFF MACHINE HELPER LAB BLOOD ORDERABLES Jeaneth mari Result [facility]ERNER [address] Department [place] [address] * (ABNORMAL) Comprehensive metabolic panel (10/23/2024 5:27 AM INFANTRY WEAPONS OFFICER) Pathologist [facility] [place] Sodium 137 135 - 145 mmol/L Potassium, pl 4.2 3.3 - 4.9 mmol/L [facility] Chloride 96(L) 97 - 110 mmol/L [facility] CO2 27 22 - 32 mmol/L [facility] Anion gap 14 2 - 15 mmol/L [facility] BUN 30(H) 6 - 25 mg/dL [facility] Creatinine 4.96(H) 0.80 - 1.30 mg/dL [facility] Glucose 93 70 - 199 mg/dL [facility] Comment: Interpretive Data Fasting glucose >/= 126 mg/dl is diagnostic for diabetes. Fasting is defined as no caloric intake for at least 8 hours. Fasting glucose between 100 mg/dl to 125 mg/dl is diagnostic of prediabetes. In a patient with classic symptoms of hyperglycemia or hyperglycemic crisis, a random glucose >/= 200 mg/dl is diagnostic for diabetes. In the absence of unequivocal hyperglycemia, results should be confirmed by repeat testing. The classification and Diagnosis of Diabetes Diabetes Care 2021; 46: S19-S40. Current interpretive data was last revised 2022. Calcium 9.0 8.5 - 10.3 mg/dL [facility] Bilirubin, total 0.2 0.1 - 1.2 mg/dL [facility] Protein, pl 5.9(L) 6.5 - 8.5 g/dL [facility] Albumin 3.5 3.5 - 5.0 g/dL [facility] Alk phos 59 40 - 130 Units/L [facility] ALT 7 7 - 55 Units/L [facility] AST 6(L) 10 - 50 Units/L [facility] Blood 10/23/2024 5:27 AM INFANTRY WEAPONS OFFICER 10/23/2024 5:30 AM INFANTRY WEAPONS OFFICER us Raisa Scherer CUT OFF MACHINE HELPER LAB BLOOD ORDERABLES Jeaneth l Result NIDIA COTE [address] [address] [facility] [employer] [place] [address] * POCT glucose (10/23/2024 3:04 AM INFANTRY WEAPONS OFFICER) Glucose, POC 84 70 - 199 mg/dL Blood 10/23/2024 3:04 AM INFANTRY WEAPONS OFFICER 10/23/2024 3:04 AM INFANTRY WEAPONS OFFICER us Sylvester Engel MD LAB POCT ORDERABLES - SALO CE Final Result Performing Organization Address [facility] Co de Phone Number NIDIA KERA [address] [address] [facility] [employer] [place] [address] * POCT glucose (10/22/2024 10:42 PM INFANTRY WEAPONS OFFICER) Glucose, POC 101 70 - 199 mg/dL Blood 10/22/2024 10:4 2 PM INFANTRY WEAPONS OFFICER 10/22/2024 10:42 PM INFANTRY WEAPONS OFFICER us Sylvester Engel MD LAB POCT ORDERABLES - SALO CE Final Result Performing Organization Address [facility] Co de Phone Number NIDIA [address] [address] [facility] [employer] [place] [address] * POCT glucose (10/22/2024 8:42 PM INFANTRY WEAPONS OFFICER) Glucose, POC 114 70 - 199 mg/dL Blood 10/22/2024 8:42 PM INFANTRY WEAPONS OFFICER 10/22/2024 8:42 PM INFANTRY WEAPONS OFFICER Guru Miller MD LAB POCT ORDERABLES - DEVICE Final Result Performing Organization Address [facility]/ZIP Co de Phone Number ALYSSAALANNAH [address] [address] [facility] [employer] [place] [address] * (ABNORMAL) DIABETES EYE EXAM (08/13/2024 9:40 AM CDT) Historical Provider HEALTH MAINTENANCE Edited Result - Final * (ABNORMAL) Albumin Creatinine Ratio, Urine (03/10/2024 8:46 AM CDT) Albumin Ur 3,169.5 mg/L Comment: Interpretive Data No reference range established. Current interpretive data was last revised 2019. Creatinine Ur 47.7 mg/dL [facility] Comment: Interpretive Data No reference range established. Current interpretive data was last revised 2019. Albumin Creatinine Ratio, Ur 6,645(H) 1 - 29 mg/g [facility] Urine 03/10/2024 8:46 AM CDT 03/11/2024 9:11 AM CDT Bertha Pinto NP LAB URINE ORDERABLES Jeaneth l Result [facility] [address] [address] Department [place] [address] * (ABNORMAL) Lipid panel (03/03/2024 9:29 AM CDT) Cholesterol 85 30 - 199 mg/dL Comment: Interpretive Data Ages < or = 19 years Acceptable: <170 mg/dL Borderline high: 170-199 mg/dL High: >or= 200 mg/dL Ages > or = 20 years Desirable: <200 mg/dL Borderline high: 200-239 mg/dL High: >or= 240 mg/dL Literature References: 1. Expert Panel on Integrated Guidelines for Cardiovascular Health and Risk Reduction in Children and Adolescents. Pediatrics 2011;128:S213 2. NCEP Expert Panel. Circulation 2004;110:227 Current Interpretive Data was last revised on 2018. Triglycerides 75 <=149 mg/dL [facility] Comment: Interpretive Data Ages < or = 9 years Acceptable: <75 mg/dL Borderline high: 75-99 mg/dL High: >or= 100 mg/dL Ages 10 to 20 years Acceptable: <90 mg/dL Borderline high: 90-129 mg/dL High: >or= 130 mg/dL Ages > or = 20 years Desirable: <150 mg/dL Borderline high: 150-199 mg/dL High: 200-499 mg/dL Very high: >or= 499 mg/dL Literature References: 1. Expert Panel on Integrated Guidelines for Cardiovascular Health and Risk Reduction in Children and Adolescents. Pediatrics 2011;128:S213 2. NCEP Expert Panel. Circulation 2003;110:227 Current Interpretive Data was last revised on 2018. HDL 37(L) >=40 mg/dL [facility] Comment: Interpretive Data Ages < or = 19 years Acceptable: >45 mg/dL Borderline low: 40-45 mg/dL Low: <40 mg/dL Ages > or = 20 years Desirable: >or= 60 mg/dL Low: <40 mg/dL Literature References: 1. Expert Panel on Integrated Guidelines for Cardiovascular Health and Risk Reduction in Children and Adolescents. Pediatrics 2011;128:S213 2. NCEP Expert Panel. Circulation 2003;110:227 Current Interpretive Data was last revised on 2018. LDL, calculated 33 <=129 mg/dL [facility] Comment: Interpretive Data Ages < or = 19 years Acceptable: <110 mg/dL Borderline high: 110-129 mg/dL High: >or= 130 mg/dL Ages > or = 20 years Optimal: <100 mg/dL Near optimal: 100-129 mg/dL Borderline high: 130-159 mg/dL High: >160 mg/dL Literature References: 1. Expert Panel on Integrated Guidelines for Cardiovascular Health and Risk Reduction in Children and Adolescents. Pediatrics 2011;128:S213 2. NCEP Expert Panel. Circulation 2004;110:227 Current Interpretive Data was last revised on 2018. Non-HDL Cholesterol 48 mg/dL [facility] Comment: Interpretive Data Ages < or = 19 years Acceptable: <120 mg/dL Borderline high: 120-144 mg/dL High: >145 mg/dL Ages > or = 20 years When triglycerides are >200 mg/dL, Non-HDL cholesterol is a secondary target of therapy with treatment goals that are 30 mg/dL greater than the LDL cholesterol target. Literature References: 1. Expert Panel on Integrated Guidelines for Cardiovascular Health and Risk Reduction in Children and Adolescents. Pediatrics 2011;128:S213 2. NCEP Expert Panel. Circulation 2004;110:227 Current Interpretive Data was last revised on 2018. Chol/HDL ratio 2 NIDIA COTE Blood 03/03/2024 9:29 AM CDT 03/03/2024 4:40 PM CDT us Bertha Pinto CUT OFF MACHINE HELPER LAB BLOOD ORDERABLES Jeaneth l Result NIDIA COTE [address] Department [place] [address] * CT Abdomen Pelvis WO Contrast (12/05/2021 11:53 AM INFANTRY WEAPONS OFFICER) Anatomical Region Laterality Modality Body N/A Computed Tomogra phy 12/05/2021 12:0 4 PM INFANTRY WEAPONS OFFICER Impressions 12/05/2021 12:04 PM INFANTRY WEAPONS OFFICER Bone windows show no suspicious lytic or blastic lesions. IMPRESSION: 1. 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 2. 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 Electronically signed by: Ryan Cameron M.D. Narrative 12/05/2021 12:04 PM INFANTRY WEAPONS OFFICER EXAMINATION: Computed tomography of the abdomen/pelvis without intravenous contrast HISTORY: Pretransplant evaluation TECHNIQUE: Transaxial computed tomographic images of the abdomen/pelvis were obtained without intravenous contrast according to the standard protocol. COMPARISON: None FINDINGS: There is mild scarring within the lingula and both lower lobes. There is lower lobe predominant atelectasis. The heart size is normal. There are mitral annular calcifications. There is coronary artery atherosclerotic disease. No pericardial effusion. A hypoattenuating 6 mm lesion within the left hepatic lobe is too small to characterize. No biliary dilatation. Normal gallbladder. The pancreas and spleen are normal. The right adrenal gland is normal. There is thickening of the left adrenal gland, or, maintains adeniform shape. There is atrophy of both [place] kidneys. Adjacent fat stranding is likely related to prior inflammatory infectious process. There are associated vascular calcifications. The bladder is thick walled. The prostate is enlarged. There is no abdominal or pelvic lymphadenopathy. No free fluid or gas. No abnormal bowel wall thickening or dilatation. There is severe calcified atherosclerotic disease of the infrarenal abdominal aorta, common iliac arteries, external iliac arteries, and internal iliac arteries. 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 Procedure Note Ryan Cameron MD - 12/05/2021 EXAMINATION: Computed tomography of the abdomen/pelvis without intravenous contrast HISTORY: Pretransplant evaluation TECHNIQUE: Transaxial computed tomographic images of the abdomen/pelvis were obtained without intravenous contrast according to the standard protocol. COMPARISON: None FINDINGS: There is mild scarring within the lingula and both lower lobes. There is lower lobe predominant atelectasis. The heart size is normal. There are mitral annular calcifications. There is coronary artery atherosclerotic disease. No pericardial effusion. A hypoattenuating 6 mm lesion within the left hepatic lobe is too small to characterize. No biliary dilatation. Normal gallbladder. The pancreas and spleen are normal. The right adrenal gland is normal. There is thickening of the left adrenal gland, or, maintains adeniform shape. There is atrophy of both [place] kidneys. Adjacent fat stranding is likely related to prior inflammatory infectious process. There are associated vascular calcifications. The bladder is thick walled. The prostate is enlarged. There is no abdominal or pelvic lymphadenopathy. No free fluid or gas. No abnormal bowel wall thickening or dilatation. There is severe calcified atherosclerotic disease of the infrarenal abdominal aorta, common iliac arteries, external iliac arteries, and internal iliac arteries. 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 IMPRESSION: Bone windows show no suspicious lytic or blastic lesions. IMPRESSION: 1. 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 2. 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 Electronically signed by: Ryan Cameron M.D. us Alex Ceballos MD IMG CT PROCEDURES Final Re sult from Last 3 Months or Most Recently Relevant to Health Maintenance
--- OUTSIDE RECORDS SUMMARY | 2024-12-09 07:48 | XMS_ITS | Encounter Summary ---
Author Organization [facility] Health Address [address] [place] [address] Care Team Providers Care Utility System Operator Name Role Phone Mariza Carrion MD Primary Care Provider Encounter Details Date Type Department Care Team (Late Contact Info) Description 06/03/2018 [facility] Outpatient Visit [facility] [address] [place] [address] [place] [address] [facility] [address] [place] [id number] Social History Tobacco Use Types Packs/Day Years Used Date Smoking Tobacco: Former Smokeless Tobacco: Never Alcohol Use Standard Drinks/Week Comments Yes 0 (1 standard drink = 0.6 oz pur e alcohol) occas Sex and Gender Information Value Date Recorded Sex Assigned at Not on file Gender Identity Not on file Sexual Orientation Not on file documented as of this encounter Plan of Treatment Upcoming Encounters Date Type Department Care Team (Late Contact Info) Description 03/23/2025 8:00 AM CDT Appointment [facility] Vascular Services [address] [facility], [address] [place], [place] [id number] [place] [address] [facility] [address] [place] [address] documented as of this encounter Visit Diagnoses Not on filedocumented in this encounter Care Teams Utility System Operator Relationship Specialty Start Date End Date Mariza Carrion MD [address] [place] [id number] PCP - General Family Medicine 08/26/18 documented as of this encounter
--- OUTSIDE RECORDS SUMMARY | 2024-12-09 07:49 | XMS_ITS | Referral Summary ---
Author Organization [facility] Address [address] [place] [address] Care Team Providers Care Guardian Ad Litem Name Role Phone Mariza Carrion MD Primary Care Provider Source Comments [facility],non-owned Affiliates and Associated Physician Practices is amultiple site organization consisting of ambulatory clinics and hospital sitesin [place], [place], [place] and [place]. This disclosure is being madepursuant to the Care Everywhere program and may not contain all information available regarding this patient. Last updated 18.[facility] Encounters Date Type Department Care Team Description 11/04/2024 Orders Only [facility] - Urology [id number] [facility] , [address] [place] [address] Anita Shay MA Urinary retention 09/22/2024 Travel 09/22/2024 7:08 AM LOGISTICS OPERATIONS DIRECTOR - 09/22/2024 11:59 PM [facility] Hospital Encounter [facility] [address] [facility], [address] [place], [place] [id number] Dank George MD Discharge Disposition: Home or Self Care from Last 3 Months Allergies No known active allergies Medications * Be aware that medications may not be up to date on this document. Alwaysverify current medications with the patient. Medication Sig Dispensed Refills Start Date End Date Status ASPIRIN 81 PO 81 mg 03/13/2014 Active blood glucose test strip Use to test glucose 5 times daily 04/03/2018 Active insulin glargine (LANTUS) pen Inject 4 (four) Units to 10 (ten) Units subcutaneously once daily Sliding Scale 04/03/2018 Active insulin lispro (HUMALOG) 100 UNIT/ML pen 5 (five) Units to 10 (ten) Units 3 times daily before meals 04/03/2018 Active loratadine (Claritin) 5 MG/5ML syrup take 10 milliliter by oral route take as needed 01/05/2015 Active dulaglutide (Trulicity) 1.5 MG/0.5ML injection Inject 1.5 (one and one-half) mg subcutaneously every 7 days 05/13/2018 Active QC ALCOHOL SWABS 70 % Use pads 5 times daily 09/19/2018 Active zspzg-6-hldk ethyl esters (LOVAZA) 1 g capsule Take 1 (one) capsule by mouth 2 times daily 02/23/2020 Active BD Pen Needle Ruma 2nd Gen 32G X 4 MM MISC 06/12/2022 Active atorvastatin (Lipitor) 20 MG tablet Take 1 (one) tablet by mouth once daily 12/11/2022 Active sevelamer (Renagel) 800 MG tablet TAKE 4 TABLETS BY MOUTH THREE TIMES DAILY WITH MEALS AND 2 TABLETS TWICE DAILY WITH SNACKS 12/12/2022 Active acetaminophen (Tylenol) 325 MG tablet Take 2 (two) tablets by mouth every 6 hours as needed for Pain or Fever Maximum allowable Acetaminophen amount = 4 Grams (4000 mg) / 24 hours. 05/01/2023 Active amLODIPine (Norvasc) 10 MG tablet Take 1 (one) tablet by mouth once daily 08/23/2023 Active docusate sodium (Colace) 100 MG capsule Take 1 (one) capsule by mouth every 12 hours 12/18/2023 Active carvedilol (Coreg) 25 MG tablet 11/05/2023 Active finasteride (Proscar) 5 MG tablet 05/04/2023 Active pantoprazole EC (Protonix) 40 MG tablet 10/27/2023 Active cyclobenzaprine (Flexeril) 5 MG tablet Take 1 (one) tablet by mouth 3 times daily as needed FOR MUSCLE SPASM 09/03/2024 Active HYDROcodone-aceta minophen ([place]) 5-325 MG tablet 12/15/2023 Active Lokelma 10 g packet MIX ONE PACKET WITH WATER AND DRINK BY MOUTH ONCE FOR 1 DOSE 04/17/2024 Active tamsulosin (Flomax) 0.4 MG capsuleIndication s:Urinary retention Take 1 (one) capsule by mouth once daily 90 capsule 3 11/04/2024 Active Active Problems Problem Noted Date Diagnosed Date PVD (peripheral vascular disease) 04/11/2023 Cardiac arrest 04/11/2023 Acute hypoxemic respiratory failure 04/11/2023 Encounter regarding vascular access for dialysis for end-stage renal disease 01/24/2023 ESRD (end stage renal disease) 07/09/2018 Complication of arteriovenous dialysis fistula Resolved Problems Problem Noted Date Diagnosed Date Resolved Date Pain 04/05/2023 04/11/2023 Social History Tobacco Use Types Packs/Day Years Used Date Smoking Tobacco: Former Cigarettes Q uit: 06/04/1999 Passive Smoke Exposure: Past Smokeless Tobacco: Never Tobacco Cessation:Counseling Given: Not Answered Alcohol Use Standard Drinks/Week Comments Yes 0 (1 standard drink = 0.6 oz pur e alcohol) occas Overall Financial Resource Strain (CARDIA) Answe r Date Recorded How hard is it for you to pa y for the very basics like food, housing, medical care, and heating? Not hard at all 04/06/2023 [facility] [place] [facility] Occupat ional Health - Occupational Stress Questionnaire Answer Date Recorded Do you feel stress - tense, restless, nervous, or anxious, or unable to sleep at night because your mind is troubled all the time - these days? Not at all 04/06/2023 Hunger Vital Sign Answer Date Recorded Within the past 12 months, y ou worried that your food would run out before you got the money to buy more. Never true 04/06/20 23 Within the past 12 months, t he food you bought just didn't last and you didn't have money to get more. Never true 04/06/2023 PRAPARE - Transportation Answer Date Re corded In the past 12 months, has l ack of transportation kept you from medical appointments or from getting medications? No 03/22 In the past 12 months, has l ack of transportation kept you from meetings, work, or from getting things needed for daily living? No 04/06/2023 Housing Stability Vital Sign Answer Arun e Recorded In the last 12 months, was t here a time when you were not able to pay the mortgage or rent on time? No 04/06/2023 In the last 12 months, how many places have you lived? 1 04/06/2023 In the last 12 months, was t here a time when you did not have a steady place to sleep or slept in a snf (including now)? No 04/06/2023 Sex and Gender Information Value Date Recorded Sex Assigned at Not on file Gender Identity Not on file Sexual Orientation Not on file Last Filed Vital Signs Vital Sign Reading Time Taken Comments Blood Pressure 147/70 09/22/2024 8:55 AM LOGISTICS OPERATIONS DIRECTOR Pulse 68 09/22/2024 8:55 AM LOGISTICS OPERATIONS DIRECTOR Temperature 36.2 C (97.2 F) 09/22/2024 7:24 AM LOGISTICS OPERATIONS DIRECTOR Respiratory Rate 15 09/22/2024 8:55 AM LOGISTICS OPERATIONS DIRECTOR Oxygen Saturation 92% 09/22/2024 8:55 AM LOGISTICS OPERATIONS DIRECTOR Inhaled Oxygen Concentration 25% 04/11/2023 7 :26 PM CDT Weight 87.9 kg (193 lb 12.6 oz) 09/22/2024 7:24 AM LOGISTICS OPERATIONS DIRECTOR Height 170.2 cm (5' 7 ) 09/22/2024 7:24 AM LOGISTICS OPERATIONS DIRECTOR Body Mass Index 30.35 09/22/2024 7:24 AM LOGISTICS OPERATIONS DIRECTOR Functional Status Functional Status Response Date of Assess ment Is person deaf or have serious hearing difficult y? No 04/06/2023 Is person blind or have serious difficulty seein g? No 04/06/2023 Does person have serious dif ficulty walking/climbing stairs? No 04/06/2023 Does person have difficulty dressing/bathing? No 04/06/2023 Does person have difficulty doing errands alone? No 04/06/2023 Cognitive Status Response Date of Assessm ent Does person have difficulty concentrating/remembering/making decisions? No 04/06/2023 Plan of Treatment Upcoming Encounters Date Type Department Care Team (Late st Contact Info) Description 03/23/2025 8:00 AM CDT Appointment [facility] [address] [place] [address], [address] [place] [address] [place] [address] [facility] [address] [place] [phone] Medical Devices Implanted Type Area Split And Drum Room Supervisor Device Identifier Shelf Expiration Date Model / Serial / Lot Mynxgrip Vascular Closure Device Implanted:Qty: 1 on 04/11/2023 by Matt Beyer DO at [facility] Right: Groin 01/19/2025 [id number] / [id number] / [id number] 5tch Cv 6x1cm Photofix Decellularized Implanted:Qty: 1 on 04/20/2023 by Matt Beyer DO at [facility] N/A: Other (See Descriptio n) Cryolife 01/28/2024 [id number] / / [id number] Description:LEFT FEMORAL ART BARI Procedures Procedure Name Priority Date/Time Associated Diagnosis Comments CARDIAC RHYTHM STRIP ORDER 09/23/2024 9:57 PM LOGISTICS OPERATIONS DIRECTOR IR ANGIO AV SHUNT IMAGING Routine 09/22/2024 8:41 AM LOGISTICS OPERATIONS DIRECTOR ESRD (end stage renal disease) (HCC) HEPATITIS SCREEN ACUTE STAT 04/07/2023 8:19 AM CDT from Last 3 Months or Most Recently Relevant to Health Maintenance Results * CARDIAC RHYTHM STRIP ORDER (09/23/2024 9:57 PM LOGISTICS OPERATIONS DIRECTOR) Narrative 09/23/2024 9:57 PM LOGISTICS OPERATIONS DIRECTOR Ordered by an unspecified provider. Scanned Document CARDIAC SERVICES ORD ERABLES * IR Angio Av Shunt Imaging (09/22/2024 8:41 AM LOGISTICS OPERATIONS DIRECTOR) Anatomical Region Laterality Modality Lower Extremity, Upper Extremity, Chest X-Ray Angiography Narrative 09/22/2024 8:43 AM LOGISTICS OPERATIONS DIRECTOR Dank George MD 09/22/2024 8:46 AM [facility] Brandie Morrissey 1945 DATE OF PROCEDURE: 09/22/2024 ORDERING PHYSICIAN: Dank George MD PROCEDURE: Left upper arm AV fistulogram with successful angioplasty of mid fistula stenosis and cephalic arch stenosis using an 8 x 4 balloon. IV conscious sedation. INDICATIONS FOR PROCEDURE: Increased pulsatility of left upper arm AV fistula with prolonged bleeding at dialysis. DESCRIPTION OF PROCEDURE: Once the patient was prepped and draped in the usual sterile fashion he was given 1 percent lidocaine as local anesthetic. He tolerated this well. The micropuncture set was used to cannulate the left upper arm AV fistula and fistulogram was obtained. This showed small aneurysmal dilatation in the stick zone and high-grade stenosis just past that in the mid fistula. There was also high-grade stenosis around a cephalic arch stent. Tract was dilated and a 6 [place] Islander sheath was inserted. Patient was given IV conscious sedation once the airway was confirmed to be widely patent and this consisted of 0.5 mg of Versed and 50 mcg of fentanyl. 8 x 4 balloon was inserted and angioplasty of both areas was performed with excellent results on completion angiography. Patient tolerated the procedure well was found to be stable postoperatively. Preoperatively the patient understood the risks of procedure be bleeding and infection. During the procedure we used 20 cc of Isovue and 6.9 mGy. DICTATED BY: Dank George M.D./nate Interventional Post-Operative/Procedure Notes Surgeon: Dank George MD Pre Procedure Diagnosis: ESRD Post Procedure Diagnosis: ESRD Anesthesia: Local 1% lidocaine and IV sedation Disposition: OPS Status: Stable Drain or Pack: None Additional Information/Complications: None Estimated Blood Loss: Negligible Specimen: None Dank George MD IR ORDERABLES * HEPATITIS SCREEN ACUTE (04/07/2023 8:19 AM CDT) HAV Antibody IgM Non Reactive Non Reactive 04/07/2023 9:28 AM CDT [facility] HBsAg Non Reactive Non Reactive 04/07/2023 9:28 AM CDT [facility] HBc Antibody IgM Non Reactive Non Reactive 04/07/2023 9:28 AM CDT [facility] HCV Antibody Screen Non Reactive Non Reactive 04/07/2023 9:28 AM CDT [facility] Blood BLOOD SPECIMEN / Unknown Venipuncture / Unknown 04/07/2023 8:19 AM CDT 04/07/2023 8:31 AM CDT Narrative [facility] - 04/07/2023 9:28 AM CDT Non Reactive - Antibodies to Hepatitis C virus (HCV) were not detected, result does not exclude early acute HCV infection. Marito Rios MD LAB - CHEMISTRY RJ AYALA [facility] [address] [place] [address] from Last 3 Months or Most Recently Relevant to Health Maintenance Advance Directives Documents on File Type Date Recorded Patient Citizenship Teacher Expl anation Adv Directive/Living Will/POA 05/02/2023 3:49 PM * Full Code (Latest Code Status on File) Date Activated Date Inactivated Comments 04/06/2023 9:49 AM 05/01/2023 4:44 PM Care Teams Guardian Ad Litem Relationship Specialty Start Date End Date Mariza Carrion MD [address] [place] [phone] PCP - General Family Medicine 08/26/18
--- OUTSIDE RECORDS SUMMARY | 2024-12-09 07:49 | XMS_ITS | Clinical Summary ---
Author Organization [facility] Facility Address [address] [place] [id number] Care Team Providers Care Metrology Technician Name Role Phone Murali Dawkins MD Primary Care Provider Encounters Date Type Department Care Team Description 10/28/2024 Documentation Only [facility], [address] [phone] Jeanie Graff from Last 3 Months Social History Tobacco Use Types Packs/Day Years Used Date Smoking Tobacco: Never Assessed Sex and Gender Information Value Date Recorded Sex Assigned at Not on file Legal Sex Male 12:14 PM EST Gender Identity Not on file Sexual Orientation Not on file Plan of Treatment Health Maintenance Due Date Last Done Comments Pneumococcal Vaccine: 65+ Ye ars (1 of 2 - PCV) 1951 Influenza Vaccine (#1) 2024 Hepatitis B Vaccine Aged Out No longe r eligible based on patient's age to complete this topic Insurance MEDICARE Care Teams Metrology Technician Relationship Specialty Start Date End Date Murali Dawkins MD [address] [place] [address] PCP - General Family Medicine 10/28/24
--- OUTSIDE RECORDS SUMMARY | 2024-12-09 07:49 | XMS_ITS | Clinical Summary ---
Author Organization [facility] Address [address] [place] [address] Care Team Providers Care Core Dipper Name Role Phone Mariza Carrion MD Primary Care Provider Source Comments [facility],non-owned Affiliates and Associated Physician Practices is amultiple site organization consisting of ambulatory clinics and hospital sitesin [place], [place], [place] and [place]. This disclosure is being madepursuant to the Care Everywhere program and may not contain all information available regarding this patient. Last updated 18.[facility] Allergies No known active allergies Medications * [...] Use pads 5 times daily 09/19/2018 Active ditsp-8-bcft ethyl esters (LOVAZA) 1 g capsule Take [...] FOR MUSCLE SPASM 09/03/2024 Active HYDROcodone-aceta minophen ([place]) 5-325 MG tablet 12/15/2023 Active Lokelma 10 [...] Diagnosed Date Resolved Date Pain 04/05/2023 04/11/2023 Encounters Date Type Department Care Team Description 11/04/[address] [facility] - Urology [address], [address] [place] [phone] Anita Shay MA Urinary retention 09/22/2024 7:08 AM DIRECTOR OF SERVICES - 09/22/2024 11:59 PM DIRECTOR OF SERVICES Hospital Encounter [facility] [address] [facility], [address] [place] [address] Dank George MD Discharge Disposition: Home or Self Care 09/22/2024 Travel from Last 3 Months Family History Medical History Relation Name Comments Diabetes - Type 2 Mother Relation Name Status Comments Brother Alive Father Mother Social History Tobacco Use Types Packs/Day Years [...] and heating? Not hard at all 04/06/2023 [facility] [place] of Occupat ional Health - Occupational Stress [...] place to sleep or slept in a retirement (including now)? No 04/06/2023 Sex and Gender Information Value Date Recorded Sex Assigned at Not on file Gender Identity Not on file Sexual Orientation Not on file Last Filed Vital Signs Vital Sign Reading Time Taken Comments Blood Pressure 147/70 09/22/2024 8:55 AM DIRECTOR OF SERVICES Pulse 68 09/22/2024 8:55 AM DIRECTOR OF SERVICES Temperature 36.2 C (97.2 F) 09/22/2024 7:24 AM DIRECTOR OF SERVICES Respiratory Rate 15 09/22/2024 8:55 AM DIRECTOR OF SERVICES Oxygen Saturation 92% 09/22/2024 8:55 AM DIRECTOR OF SERVICES Inhaled Oxygen Concentration 25% 04/11/2023 7 :26 PM CDT Weight 87.9 kg (193 lb 12.6 oz) 09/22/2024 7:24 AM DIRECTOR OF SERVICES Height 170.2 cm (5' 7 ) 09/22/2024 7:24 AM DIRECTOR OF SERVICES Body Mass Index 30.35 09/22/2024 7:24 AM DIRECTOR OF SERVICES Plan of Treatment Upcoming Encounters Date Type Department Care Team (Late st Contact Info) Description 03/23/2025 8:00 AM CDT Appointment [facility] V[facility] Services [address] [place] [address], [address] [place] [address] [place] [address] [facility] [address] [place] [address] Health Maintenance Due Date Last Done Comments MEDICARE AWV 12 MONTHS 1945 DTAP/TDAP/TD VACCINES (1 - Tdap) 1966 PNEUMOCOCCAL VACCINE 50+ (1 of 1 - PCV) 1997 ZOSTER VACCINE (1 of 2) 1997 Respiratory Syncytial Virus (RSV) Vaccine Pt: or over 60 yrs (1 - 1-dose 75+ series) 2022 COVID-19 VACCINE (1 - 2023-2 5 season) 2024 INFLUENZA VACCINE (#1) 2024 3, 08/26/2012, 08/05/2008 DEPRESSION SCREENING 10/22/2024 HEPATITIS C SCREENING Completed 04/07/2023 HEPATITIS B VACCINE Aged Out No longe r eligible based on patient's age to complete this topic HIB VACCINE Aged Out No longer eligi ble based on patient's age to complete this topic HPV VACCINE Aged Out No longer eligi ble based on patient's age to complete this topic MENINGOCOCCAL (Group B) VACCINE Aged Out No longer eligible b ased on patient's age to complete this topic MENINGOCOCCAL VACCINE Aged Out No kristin ana eligible based on patient's age to complete this topic Medical Devices Implanted Type Area Contracts Paralegal Device Identifier Shelf Expiration Date Model / Serial / Lot Mynxgrip Vascular Closure Device Implanted:Qty: 1 on 04/11/2023 by Matt Beyer DO at [facility] Right: Groin 01/19/2025 [id number] / [id number] / [id number] 5tch Cv 6x1cm Photofix Decellularized Implanted:Qty: 1 on 04/20/2023 by Matt Beyer DO at [facility] N/A: Other (See Descriptio n) [employer]ife 01/28/2024 [id number] / / [id number] Description:LEFT FEMORAL ART BARI Procedures Procedure Name Priority Date/Time Associated Diagnosis Comments CARDIAC RHYTHM STRIP ORDER 09/23/2024 9:57 PM DIRECTOR OF SERVICES IR ANGIO AV SHUNT IMAGING Routine 09/22/2024 8:41 AM DIRECTOR OF SERVICES ESRD (end stage renal disease) (HCC) HEPATITIS SCREEN ACUTE STAT 04/07/2023 8:19 AM CDT from Last 3 Months or Most Recently Relevant to Health Maintenance Results * CARDIAC RHYTHM STRIP ORDER (09/23/2024 9:57 PM DIRECTOR OF SERVICES) Narrative 09/23/2024 9:57 PM DIRECTOR OF SERVICES Ordered by an unspecified provider. Scanned Document CARDIAC SERVICES ORD ERABLES * IR Angio Av Shunt Imaging (09/22/2024 8:41 AM DIRECTOR OF SERVICES) Anatomical Region Laterality Modality Lower Extremity, Upper Extremity, Chest X-Ray Angiography Narrative 09/22/2024 8:43 AM Dank Jeronimo MD 09/22/2024 8:46 AM [facility] [place] [address] 1945 DATE OF PROCEDURE: 09/22/2024 [...] stent. Tract was dilated and a 6 [place]ese sheath was inserted. Patient was given IV [...] Reactive Non Reactive 04/07/2023 9:28 AM CDT [facility] HBsAg Non Reactive Non Reactive 04/07/2023 9:28 AM CDT [facility] HBc Antibody IgM Non Reactive Non Reactive 04/07/2023 9:28 AM CDT [facility] HCV Antibody Screen Non Reactive Non Reactive 04/07/2023 9:28 AM CDT [facility] Blood BLOOD SPECIMEN / Unknown Venipuncture / Unknown 04/07/2023 8:19 AM CDT 04/07/2023 8:31 AM CDT Narrative [facility] - 04/07/2023 9:28 AM CDT Non Reactive - Antibodies to Hepatitis C virus (HCV) were not detected, result does not exclude early acute HCV infection. Marito Rios MD LAB - CHEMISTRY RJ AYALA [facility] [address] [place] [address] from Last 3 Months or Most Recently Relevant to Health Maintenance Advance Directives Documents on File Type Date Recorded Patient Bush Hog Operator Expl anation Adv Directive/Living Will/POA 05/02/2023 3:49 PM * Full Code (Latest Code Status on File) Date Activated Date Inactivated Comments 04/06/2023 9:49 AM 05/01/2023 4:44 PM Care Teams Core Dipper Relationship Specialty Start Date End Date Mariza Carrion MD [address] [place] [address] PCP - General Family Medicine 08/26/18
--- OUTSIDE RECORDS SUMMARY | 2024-12-09 07:49 | XMS_ITS | Patient Health Summary ---
Author Organization [facility] [employer] Address [address] [place] [address] Care Team Providers Care Digital Forensics Investigator Name Role Phone Mariza Carrion MD Primary Care Provider Note from [facility] [place],non-owned Affiliates and Associated Physician Practices is amultiple site organization consisting of ambulatory clinics and hospital sitesin [place], [place], [place] and [place]. This disclosure is being madepursuant to the Care Everywhere program and may not contain all information available regarding this patient. Last updated 18.[facility] [employer] Allergies No known active allergies Medications * Be aware that medications may not be up to date on this document. Alwaysverify current medications with the patient. * ASPIRIN 81 PO(Started 03/13/2014) 81 mg * blood glucose test strip(Started 04/03/2018) Use to test glucose 5 times daily * insulin glargine (LANTUS) pen(Started 04/03/2018) Inject 4 (four) Units to 10 (ten) Units subcutaneously once daily Sliding Scale * insulin lispro (HUMALOG) 100 UNIT/ML pen(Started 04/03/2018) 5 (five) Units to 10 (ten) Units 3 times daily before meals * loratadine (Claritin) 5 MG/5ML syrup(Started 01/05/2015) take 10 milliliter by oral route take as needed * dulaglutide (Trulicity) 1.5 MG/0.5ML injection(Started 05/13/2018) Inject 1.5 (one and one-half) mg subcutaneously every 7 days * QC ALCOHOL SWABS 70 %(Started 09/19/2018) Use pads 5 times daily * uaemp-[id number] ethyl esters (LOVAZA) 1 g capsule(Started 02/23/2020) Take 1 (one) capsule by mouth 2 times daily * BD Pen Needle Ruma 2nd Gen 32G X 4 MM MISC(Started 06/12/2022) * atorvastatin (Lipitor) 20 MG tablet(Started 12/11/2022) Take 1 (one) tablet by mouth once daily * sevelamer (Renagel) 800 MG tablet(Started 12/12/2022) TAKE 4 TABLETS BY MOUTH THREE TIMES DAILY WITH MEALS AND 2 TABLETS TWICE DAILY WITH SNACKS * acetaminophen (Tylenol) 325 MG tablet(Started 05/01/2023) Take 2 (two) tablets by mouth every 6 hours as needed for Pain or Fever Maximum allowable Acetaminophen amount = 4 Grams (4000 mg) / 24 hours. * amLODIPine (Norvasc) 10 MG tablet(Started 08/23/2023) Take 1 (one) tablet by mouth once daily * docusate sodium (Colace) 100 MG capsule(Started 12/18/2023) Take 1 (one) capsule by mouth every 12 hours * carvedilol (Coreg) 25 MG tablet(Started 11/05/2023) * finasteride (Proscar) 5 MG tablet(Started 05/04/2023) * pantoprazole EC (Protonix) 40 MG tablet(Started 10/27/2023) * cyclobenzaprine (Flexeril) 5 MG tablet(Started 09/03/2024) Take 1 (one) tablet by mouth 3 times daily as needed FOR MUSCLE SPASM * HYDROcodone-acetaminophen (Brightwood) 5-325 MG tablet(Started 12/15/2023) * Lokelma 10 g packet(Started 04/17/2024) MIX ONE PACKET WITH WATER AND DRINK BY MOUTH ONCE FOR 1 DOSE * tamsulosin (Flomax) 0.4 MG capsule(Started 11/04/2024) Take 1 (one) capsule by mouth once daily 3 refills by 11/04/2025 Active Problems Problem Noted Date Diagnosed Date [...] and heating? Not hard at all 04/06/2023 [facility] [place] [facility] Occupat ional Health - Occupational Stress [...] place to sleep or slept in a skilled nursing (including now)? No 04/06/2023 Sex and Gender Information Value Date Recorded Sex Assigned at Not on file Gender Identity Not on file Sexual Orientation Not on file Last Filed Vital Signs Vital Sign Reading Time Taken Comments Blood Pressure 147/70 09/22/2024 8:55 AM [employer]ONT SERVICES AGENT Pulse 68 09/22/2024 8:55 AM [employer] SERVICES [employer]ENT Temperature 36.2 C (97.2 F) 09/22/2024 7:24 AM [employer] SERVICES AGENT Respiratory Rate 15 09/22/2024 8:55 AM [employer] SERVICES AGENT Oxygen Saturation 92% 09/22/2024 8:55 AM [employer] SERVICES AGENT Inhaled Oxygen Concentration 25% 04/11/2023 7 :26 PM CDT Weight 87.9 kg (193 lb 12.6 oz) 09/22/2024 7:24 AM [employer] SERVICES AGENT Height 170.2 cm (5' 7 ) 09/22/2024 7:24 AM FR[employer] SERVICES AGENT Body Mass Index 30.35 09/22/2024 7:24 AM FRONT SERVICES AGENT Medical Devices Implanted Type Area Service Dog Trainer Device Identifier Shelf Expiration Date Model / Serial / Lot Mynxgrip Vascular Closure Device Implanted:Qty: 1 on 04/11/2023 by Matt Beyer DO at [facility] Right: Groin 01/19/2025 [id number] / [id number] / [id number] 5tch Cv 6x1cm Photofix Decellularized Implanted:Qty: 1 on 04/20/2023 by Matt Beyer DO at [facility] N/A: Other (See Descriptio n) [employer] 01/28/2024 [id number] / / [id number] Description:LEFT FEMORAL ART BARI Procedures * CARDIAC RHYTHM STRIP ORDER(Performed 09/23/2024) * IR ANGIO AV SHUNT IMAGING(Performed 09/22/2024) Performed for ESRD (end stage renal disease) ([facility]) * CARDIAC RHYTHM STRIP ORDER(Performed 06/10/2024) * IR ANGIO AV SHUNT IMAGING(Performed 06/09/2024) Performed for ESRD (end stage renal disease) ([facility]) * CARDIAC RHYTHM STRIP ORDER(Performed 01/29/2024) * CARDIAC RHYTHM STRIP ORDER(Performed 09/25/2023) * IR ANGIO AV SHUNT IMAGING(Performed 09/24/2023) Performed for Encounter regarding vascular access for dialysis for end-stage renal disease ([facility]) * CARDIAC RHYTHM STRIP ORDER(Performed 06/01/2023) * IR ANGIO AV SHUNT IMAGING(Performed 05/30/2023) Performed for Encounter regarding vascular access for dialysis for end-stage renal disease ([facility]) * VAS LEFT ARTERIAL DUPLEX LE(Performed 05/17/2023) Performed for Pain of left lower extremity, PVD (peripheral vascular disease) (HCC), Iliac artery occlusion (HCC), Femoral artery stenosis, left (HCC) * CARDIAC RHYTHM STRIP ORDER(Performed 05/03/2023) * APHERESIS/TRANSFUSION ORDER(Performed 05/02/2023) * GLUCOSE - POINT OF CARE(Performed 05/01/2023) * RENAL FUNCTION PANEL(Performed 05/01/2023) * CBC W/O DIFFERENTIAL(Performed 05/01/2023) * HEMODIALYSIS INPATIENT(Performed 05/01/2023) * GLUCOSE - POINT OF CARE(Performed 05/01/2023) * GLUCOSE - POINT OF CARE(Performed 04/30/2023) * GLUCOSE - POINT OF CARE(Performed 04/30/2023) * GLUCOSE - POINT OF CARE(Performed 04/30/2023) * GLUCOSE - POINT OF CARE(Performed 04/30/2023) * RENAL FUNCTION PANEL(Performed 04/30/2023) * CBC W/O DIFFERENTIAL(Performed 04/30/2023) * GLUCOSE - POINT OF CARE(Performed 04/30/2023) * GLUCOSE - POINT OF CARE(Performed 04/29/2023) * GLUCOSE - POINT OF CARE(Performed 04/29/2023) * GLUCOSE - POINT OF CARE(Performed 04/29/2023) * RENAL FUNCTION PANEL(Performed 04/29/2023) * GLUCOSE - POINT OF CARE(Performed 04/29/2023) * GLUCOSE - POINT OF CARE(Performed 04/28/2023) * GLUCOSE - POINT OF CARE(Performed 04/28/2023) * GLUCOSE - POINT OF CARE(Performed 04/28/2023) * GLUCOSE - POINT OF CARE(Performed 04/28/2023) * RENAL FUNCTION PANEL(Performed 04/28/2023) * CBC W/O DIFFERENTIAL(Performed 04/28/2023) * GLUCOSE - POINT OF CARE(Performed 04/27/2023) * GLUCOSE - POINT OF CARE(Performed 04/27/2023) * FOLATE(Performed 04/27/2023) * FERRITIN(Performed 04/27/2023) * IRON + TRANSFERRIN PANEL(Performed 04/27/2023) * GLUCOSE - POINT OF CARE(Performed 04/27/2023) * CBC W/O DIFFERENTIAL(Performed 04/27/2023) * BASIC METABOLIC PANEL (CALCIUM TOTAL)(Performed 04/27/2023) * GLUCOSE - POINT OF CARE(Performed 04/26/2023) * GLUCOSE - POINT OF CARE(Performed 04/26/2023) * CBC W/O DIFFERENTIAL(Performed 04/26/2023) * RENAL FUNCTION PANEL(Performed 04/26/2023) * GLUCOSE - POINT OF CARE(Performed 04/26/2023) * GLUCOSE - POINT OF CARE(Performed 04/25/2023) * GLUCOSE - POINT OF CARE(Performed 04/25/2023) * GLUCOSE - POINT OF CARE(Performed 04/25/2023) * CBC W/O DIFFERENTIAL(Performed 04/25/2023) * RENAL FUNCTION PANEL(Performed 04/25/2023) * GLUCOSE - POINT OF CARE(Performed 04/24/2023) * GLUCOSE - POINT OF CARE(Performed 04/24/2023) * GLUCOSE - POINT OF CARE(Performed 04/24/2023) * RENAL FUNCTION PANEL(Performed 04/24/2023) * CBC W/O DIFFERENTIAL(Performed 04/24/2023) * GLUCOSE - POINT OF CARE(Performed 04/23/2023) * GLUCOSE - POINT OF CARE(Performed 04/23/2023) * GLUCOSE - POINT OF CARE(Performed 04/23/2023) * GLUCOSE - POINT OF CARE(Performed 04/23/2023) * GLUCOSE - POINT OF CARE(Performed 04/22/2023) * GLUCOSE - POINT OF CARE(Performed 04/22/2023) * GLUCOSE - POINT OF CARE(Performed 04/22/2023) * GLUCOSE - POINT OF CARE(Performed 04/22/2023) * GLUCOSE - POINT OF CARE(Performed 04/22/2023) * RENAL FUNCTION PANEL(Performed 04/22/2023) * CBC W/O DIFFERENTIAL(Performed 04/22/2023) * TRANSFUSE RED BLOOD CELL LEUKOREDUCED UNIT(S)(Performed 04/22/2023) * PREPARE RBC LEUKOREDUCED UNIT(Performed 04/21/2023) * GLUCOSE - POINT OF CARE(Performed 04/21/2023) * GLUCOSE - POINT OF CARE(Performed 04/21/2023) * GLUCOSE - POINT OF CARE(Performed 04/21/2023) * HEMODIALYSIS INPATIENT(Performed 04/21/2023) * GLUCOSE - POINT OF CARE(Performed 04/21/2023) * RENAL FUNCTION PANEL(Performed 04/21/2023) * CBC W/O DIFFERENTIAL(Performed 04/21/2023) * GLUCOSE - POINT OF CARE(Performed 04/20/2023) * PATHOLOGY TISSUE EXAM (STL)(Performed 04/20/2023) Performed for Diagnosis unknown * TRANSFUSE RED BLOOD CELL LEUKOREDUCED UNIT(S)(Performed 04/20/2023) * ENDOTRACHEAL TUBE NOTE(Performed 04/20/2023) * MS TEAEC W/GRAFT SUPERFICIAL FEMORAL ART(Performed 04/20/2023) * PTT(Performed 04/20/2023) * PT-INR(Performed 04/20/2023) * TYPE + SCREEN PANEL(Performed 04/20/2023) * CBC W AUTO DIFFERENTIAL(Performed 04/20/2023) * RENAL FUNCTION PANEL(Performed 04/20/2023) * GLUCOSE - POINT OF CARE(Performed 04/19/2023) * GLUCOSE - POINT OF CARE(Performed 04/19/2023) * HYBRID IMAGING(Performed 04/19/2023) Performed for PVD (peripheral vascular disease) ([facility]) * ENDOTRACHEAL TUBE NOTE(Performed 04/19/2023) * HEMODIALYSIS INPATIENT(Performed 04/19/2023) * ANGIOGRAM/ARTERIOGRAM(Performed 04/19/2023) * ARTERIAL LINE NOTE(Performed 04/19/2023) * GLUCOSE - POINT OF CARE(Performed 04/19/2023) * GLUCOSE - POINT OF CARE(Performed 04/19/2023) * PHOSPHORUS BLOOD(Performed 04/19/2023) * MAGNESIUM BLOOD(Performed 04/19/2023) * COMPREHENSIVE METABOLIC PANEL(Performed 04/19/2023) * CBC W AUTO DIFFERENTIAL(Performed 04/19/2023) * GLUCOSE - POINT OF CARE(Performed 04/18/2023) * ECHO COMPLETE W CONTRAST(Performed 04/18/2023) Performed for Cardiac arrest (HCC) * GLUCOSE - POINT OF CARE(Performed 04/18/2023) * HEMODIALYSIS INPATIENT(Performed 04/18/2023) * GLUCOSE - POINT OF CARE(Performed 04/18/2023) * PHOSPHORUS BLOOD(Performed 04/18/2023) * MAGNESIUM BLOOD(Performed 04/18/2023) * BASIC METABOLIC PANEL (CALCIUM TOTAL)(Performed 04/18/2023) * CBC W AUTO DIFFERENTIAL(Performed 04/18/2023) * GLUCOSE - POINT OF CARE(Performed 04/17/2023) * GLUCOSE - POINT OF CARE(Performed 04/17/2023) * GLUCOSE - POINT OF CARE(Performed 04/17/2023) * BASIC METABOLIC PANEL (CALCIUM TOTAL)(Performed 04/17/2023) * HEMODIALYSIS INPATIENT(Performed 04/17/2023) * GLUCOSE - POINT OF CARE(Performed 04/17/2023) * TYPE + SCREEN PANEL(Performed 04/17/2023) * SLIDE SCAN HEMATOLOGY(Performed 04/17/2023) * PHOSPHORUS BLOOD(Performed 04/17/2023) * MAGNESIUM BLOOD(Performed 04/17/2023) * BASIC METABOLIC PANEL (CALCIUM TOTAL)(Performed 04/17/2023) * CBC W AUTO DIFFERENTIAL(Performed 04/17/2023) * GLUCOSE - POINT OF CARE(Performed 04/16/2023) * GLUCOSE - POINT OF CARE(Performed 04/16/2023) * GLUCOSE - POINT OF CARE(Performed 04/16/2023) * GLUCOSE - POINT OF CARE(Performed 04/16/2023) * GLUCOSE - POINT OF CARE(Performed 04/15/2023) * GLUCOSE - POINT OF CARE(Performed 04/15/2023) * GLUCOSE - POINT OF CARE(Performed 04/15/2023) * PHOSPHORUS BLOOD(Performed 04/15/2023) * MAGNESIUM BLOOD(Performed 04/15/2023) * BASIC METABOLIC PANEL (CALCIUM TOTAL)(Performed 04/15/2023) * CBC W AUTO DIFFERENTIAL(Performed 04/15/2023) * GLUCOSE - POINT OF CARE(Performed 04/15/2023) * GLUCOSE - POINT OF CARE(Performed 04/14/2023) * GLUCOSE - POINT OF CARE(Performed 04/14/2023) * GLUCOSE - POINT OF CARE(Performed 04/14/2023) * GLUCOSE - POINT OF CARE(Performed 04/14/2023) * HEMODIALYSIS INPATIENT(Performed 04/14/2023) * GLUCOSE - POINT OF CARE(Performed 04/14/2023) * PHOSPHORUS BLOOD(Performed 04/14/2023) * MAGNESIUM BLOOD(Performed 04/14/2023) * BASIC METABOLIC PANEL (CALCIUM TOTAL)(Performed 04/14/2023) * CBC W AUTO DIFFERENTIAL(Performed 04/14/2023) * GLUCOSE - POINT OF CARE(Performed 04/13/2023) * EKG 12-LEAD(Performed 04/13/2023) Performed for Pain * NM MYOCARD PERF REST STRESS(Performed 04/13/2023) Performed for PVD (peripheral vascular disease) ([facility]) * STRESS TEST(Performed 04/13/2023) Performed for PVD (peripheral vascular disease) ([facility]) * GLUCOSE - POINT OF CARE(Performed 04/13/2023) * RENAL FUNCTION PANEL(Performed 04/13/2023) * MAGNESIUM BLOOD(Performed 04/13/2023) * CBC W AUTO DIFFERENTIAL(Performed 04/13/2023) * GLUCOSE - POINT OF CARE(Performed 04/12/2023) * GLUCOSE - POINT OF CARE(Performed 04/12/2023) * TROPONIN I(Performed 04/12/2023) * GLUCOSE - POINT OF CARE(Performed 04/12/2023) * TROPONIN I(Performed 04/12/2023) * GLUCOSE - POINT OF CARE(Performed 04/12/2023) * HEMODIALYSIS INPATIENT(Performed 04/12/2023) * AMMONIA(Performed 04/12/2023) * TSH REFLEX FREE T4(Performed 04/12/2023) * RENAL FUNCTION PANEL(Performed 04/12/2023) * MAGNESIUM BLOOD(Performed 04/12/2023) * CBC W AUTO DIFFERENTIAL(Performed 04/12/2023) * GLUCOSE - POINT OF CARE(Performed 04/12/2023) * TROPONIN I(Performed 04/11/2023) * LACTIC ACID BLOOD(Performed 04/11/2023) * GLUCOSE - POINT OF CARE(Performed 04/11/2023) * EKG 12-LEAD(Performed 04/11/2023) Performed for Cardiac arrest ([facility]) * GLUCOSE - POINT OF CARE(Performed 04/11/2023) * LACTIC ACID BLOOD(Performed 04/11/2023) * TROPONIN I(Performed 04/11/2023) * EKG 12-LEAD(Performed 04/11/2023) Performed for Cardiac arrest ([facility]) * TROPONIN I(Performed 04/11/2023) * COAGULATION PANEL W D-DIMER(Performed 04/11/2023) * LACTIC ACID BLOOD(Performed 04/11/2023) * PHOSPHORUS BLOOD(Performed 04/11/2023) * MAGNESIUM BLOOD(Performed 04/11/2023) * CBC W AUTO DIFFERENTIAL(Performed 04/11/2023) * COMPREHENSIVE METABOLIC PANEL(Performed 04/11/2023) * GLUCOSE - POINT OF CARE(Performed 04/11/2023) * BLOOD GASES ARTERIAL(Performed 04/11/2023) * XR CHEST 1VW PORTABLE(Performed 04/11/2023) Performed for Shortness of breath * ENDOTRACHEAL TUBE NOTE(Performed 04/11/2023) * HYBRID IMAGING(Performed 04/11/2023) Performed for Arterial occlusion * ARTERIAL LINE NOTE(Performed 04/11/2023) * ANGIOGRAM/ARTERIOGRAM(Performed 04/11/2023) * GLUCOSE - POINT OF CARE(Performed 04/11/2023) * GLUCOSE - POINT OF CARE(Performed 04/11/2023) * PT-INR(Performed 04/11/2023) * PHOSPHORUS BLOOD(Performed 04/11/2023) * MAGNESIUM BLOOD(Performed 04/11/2023) * BASIC METABOLIC PANEL (CALCIUM TOTAL)(Performed 04/11/2023) * CBC W AUTO DIFFERENTIAL(Performed 04/11/2023) * GLUCOSE - POINT OF CARE(Performed 04/10/2023) * GLUCOSE - POINT OF CARE(Performed 04/10/2023) * HEMODIALYSIS INPATIENT(Performed 04/10/2023) * GLUCOSE - POINT OF CARE(Performed 04/10/2023) * TYPE + SCREEN PANEL(Performed 04/10/2023) * MAGNESIUM BLOOD(Performed 04/10/2023) * RENAL FUNCTION PANEL(Performed 04/10/2023) * CBC W AUTO DIFFERENTIAL(Performed 04/10/2023) * GLUCOSE - POINT OF CARE(Performed 04/09/2023) * GLUCOSE - POINT OF CARE(Performed 04/09/2023) * GLUCOSE - POINT OF CARE(Performed 04/09/2023) * GLUCOSE - POINT OF CARE(Performed 04/09/2023) * MAGNESIUM BLOOD(Performed 04/09/2023) * RENAL FUNCTION PANEL(Performed 04/09/2023) * CBC W AUTO DIFFERENTIAL(Performed 04/09/2023) * GLUCOSE - POINT OF CARE(Performed 04/09/2023) * GLUCOSE - POINT OF CARE(Performed 04/08/2023) * GLUCOSE - POINT OF CARE(Performed 04/08/2023) * GLUCOSE - POINT OF CARE(Performed 04/08/2023) * MAGNESIUM BLOOD(Performed 04/08/2023) * RENAL FUNCTION PANEL(Performed 04/08/2023) * CBC W AUTO DIFFERENTIAL(Performed 04/08/2023) * GLUCOSE - POINT OF CARE(Performed 04/07/2023) * LACTIC ACID BLOOD REFLEX TO REPEAT(Performed 04/07/2023) * GLUCOSE - POINT OF CARE(Performed 04/07/2023) * CT ANGIO ABDOMEN AORTA W RUNOFF(Performed 04/07/2023) Performed for Arterial occlusion * HEPATITIS B SURFACE ANTIBODY QUANT(Performed 04/07/2023) * HEPATITIS SCREEN ACUTE(Performed 04/07/2023) * GLUCOSE - POINT OF CARE(Performed 04/07/2023) * HEMODIALYSIS INPATIENT(Performed 04/07/2023) * CBC W AUTO DIFFERENTIAL(Performed 04/07/2023) * BASIC METABOLIC PANEL (CALCIUM TOTAL)(Performed 04/07/2023) * HEMOGLOBIN A1C(Performed 04/07/2023) * GLUCOSE - POINT OF CARE(Performed 04/06/2023) * GLUCOSE - POINT OF CARE(Performed 04/06/2023) * GLUCOSE - POINT OF CARE(Performed 04/06/2023) * CBC W AUTO DIFFERENTIAL(Performed 04/06/2023) * BASIC METABOLIC PANEL (CALCIUM TOTAL)(Performed 04/06/2023) * VAS ARTERIAL ANKLE ARM INDEX(Performed 04/05/2023) Performed for Pain of left lower extremity * CARDIAC RHYTHM STRIP ORDER(Performed 01/29/2023) * CARDIAC RHYTHM STRIP ORDER(Performed 10/05/2022) * IR ANGIO AV SHUNT IMAGING(Performed 09/27/2022) Performed for ESRD (end stage renal disease) ([facility]) * CARDIAC RHYTHM STRIP ORDER(Performed 06/12/2022) * IR ANGIO AV SHUNT IMAGING(Performed 05/31/2022) Performed for Complication of arteriovenous dialysis fistula, initial encounter * CARDIAC RHYTHM STRIP ORDER(Performed 02/02/2022) * IR ANGIO AV SHUNT IMAGING(Performed 01/25/2022) Performed for ESRD (end stage renal disease) ([facility]) * CARDIAC RHYTHM STRIP ORDER(Performed 10/03/2021) * IR ANGIO AV SHUNT IMAGING(Performed 09/28/2021) Performed for ESRD (end stage renal disease) ([facility]) * CARDIAC RHYTHM STRIP ORDER(Performed 06/07/2021) * IR ANGIO AV SHUNT IMAGING(Performed 06/01/2021) Performed for Complication of arteriovenous dialysis fistula, initial encounter * CARDIAC RHYTHM STRIP ORDER(Performed 02/04/2021) * IR ANGIO AV SHUNT IMAGING(Performed 02/02/2021) Performed for Complication of arteriovenous dialysis fistula, initial encounter * CARDIAC RHYTHM STRIP ORDER(Performed 10/12/2020) * IR ANGIO AV SHUNT IMAGING(Performed 10/06/2020) Performed for ESRD (end stage renal disease) (HCC), Complication of arteriovenous dialysis fistula,initial encounter * CARDIAC RHYTHM STRIP ORDER(Performed 06/15/2020) * IR ANGIO AV SHUNT IMAGING(Performed 06/09/2020) Performed for Complication of arteriovenous dialysis fistula, initial encounter * CARDIAC RHYTHM STRIP ORDER(Performed 03/16/2020) * IR ANGIO AV SHUNT IMAGING(Performed 03/03/2020) Performed for Complication of arteriovenous dialysis fistula, subsequent encounter * CARDIAC RHYTHM STRIP ORDER(Performed 12/16/2019) * IR ANGIO AV SHUNT IMAGING(Performed 12/10/2019) Performed for Complication of arteriovenous dialysis fistula, subsequent encounter * CARDIAC RHYTHM STRIP ORDER(Performed 09/25/2019) * IR ANGIO AV SHUNT IMAGING(Performed 09/16/2019) Performed for ESRD (end stage renal disease) ([facility]), Complication of arteriovenous dialysis fistula,initial encounter * CARDIAC RHYTHM STRIP ORDER(Performed 06/17/2019) * IR ANGIO AV SHUNT IMAGING(Performed 06/04/2019) Performed for Complication of arteriovenous dialysis fistula, initial encounter, ESRD (end stage renal disease) ([facility]) * VAS DIALYSIS EXIST ACCESS SCAN(Performed 01/27/2019) Performed for ESRD (end stage renal disease) ([facility]) * GLUCOSE - POINT OF CARE(Performed 09/17/2018) * ARTERIOVENOUS FISTULA TRANSPOSITION / SUPERFICIALIZATION(Performed 09/17/2018) * GLUCOSE - POINT OF CARE(Performed 09/17/2018) * BASIC METABOLIC PANEL (CALCIUM TOTAL)(Performed 09/17/2018) Performed for Preoperative examination * VAS DIALYSIS EXIST ACCESS SCAN(Performed 08/26/2018) Performed for ESRD (end stage renal disease) ([facility]) * VAS DIALYSIS EXIST ACCESS SCAN(Performed 07/22/2018) Performed for ESRD (end stage renal disease) ([facility]) * CREATE FISTULA A-V(Performed 07/09/2018) * GLUCOSE - POINT OF CARE(Performed 07/09/2018) * BASIC METABOLIC PANEL (CALCIUM TOTAL)(Performed 07/09/2018) Performed for Preoperative examination * VAS BILAT MAPPING FOR HEMODIALYSIS(Performed 06/03/2018) Performed for ESRD (end stage renal disease) ([facility]) * ANGIOGRAM/ARTERIOGRAM Results * CARDIAC RHYTHM STRIP ORDER (09/23/2024 9:57 PM [employer]ONT SERVICES AGENT) Only the most recent of19 resultswithin the time period is included. Narrative 09/23/2024 9:57 PM [employer] SERVICES AGENT Ordered by an unspecified provider. Scanned Document CARDIAC SERVICES ORD ERABLES * IR Angio Av Shunt Imaging (09/22/2024 8:41 AM FRONT SERVICES AGENT) Only the most recent of16 resultswithin the time period is included. Anatomical Region Laterality Modality Lower Extremity, Upper Extremity, Chest X-Ray Angiography Narrative 09/22/2024 8:43 AM [employer]ONT SERVICES AGENT Dank George MD 09/22/2024 8:46 AM [facility] [place] Brandie Morrissey 1945 DATE OF PROCEDURE: 09/22/2024 [...] stent. Tract was dilated and a 6 Croatian sheath was inserted. Patient was given IV [...] Dank George M.D./nate Interventional Post-Operative/Procedure Notes Surgeon: aDnk George MD Pre Procedure Diagnosis: ESRD Post Procedure Diagnosis: ESRD Anesthesia: Local 1% lidocaine and IV sedation Disposition: OPS Status: Stable Drain or Pack: None Additional Information/Complications: None Estimated Blood Loss: Negligible Specimen: None Dank George MD IR ORDERABLES * VAS LEFT ARTERIAL DUPLEX LE (05/17/2023 1:26 PM CDT) Anatomical Region Laterality Modality Lower Extremity Ultrasound 05/17/2023 12:5 8 PM CDT Narrative Procedure Note Juan A Bassett MD - 05/17/2023 [facility] [place] [address], [address] [place] [address] Lower Extremity Arterial Ultrasound Report Pat.Name: BRANDIE MORRISSEY JR Pat.ID: [id number] .Date: 05/17/2023 Refer.MD: KENN LACY Exam Time: 12:58:00 PM Study Type:LE Arterial Age: 7 1945,77Y Sex: MALE Sonogrphr: Liz Diana RVT Pat. Stat.:Outpatient CPT - 4: 73308 Reason for Study: Follow up surgery History / Clinical: Hypertension, Diabetes, Coronary artery disease, Hyperlipidemia Procedures: Lower Extremity Arterial Duplex - Left Race: [facility] Visit ID: [id number] ++++++++++++++++++++++++++++++++++++ SUMMARY: ++++++++++++++++++++++++++++++++++++ Severe left lower extremity peripheral vascular disease ++++++++++++++++++++++++++++++++++++ FINDINGS: ++++++++++++++++++++++++++++++++++++ Procedure: B-mode imaging, color flow Doppler and spectral analysis were used to examine the arteries of the left lower extremity. Study Quality: This study is of adequate technical quality. Lt Leg: Arterial doppler waveforms of the left FIRE PILOT are biphasic. Arterial doppler waveforms of the left SFA are monophasic and appears to be near occlusion. Arterial doppler waveforms of the left lower calf arteries are monophasic. Calcified plaque visualized in the most of Arteries in Left Leg. ++++++++++++++++++++++++++++++++++++ MEASUREMENTS: ++++++++++++++++++++++++++++++++++++ DOPPLER Left FIRE PILOT Prox FIRE PILOT Prox PSV 119 cm/s Left ISELA Dist ISELA Dist PSV 19 cm/s Left ISELA Mid ISELA Mid PSV 20 cm/s Left DPA DPA PSV 20 cm/s Left Iliac Dist Iliac Dist PSV 111 cm/s Left Iliac Dist 2 Iliac Dist 2 PS 159 cm/s Left Pop Dist Pop Dist PSV 27 cm/s Pop Dist EDV 12 cm/s Left Pop Prox Pop Prox PSV 34 cm/s Pop Prox EDV 14 cm/s Left Profunda Profunda PSV 55 cm/s Left WINDOWS DEPLOYMENT TECHNICIAN Distal WINDOWS DEPLOYMENT TECHNICIAN Distal PSV 26 cm/s WINDOWS DEPLOYMENT TECHNICIAN Distal EDV 16 cm/s Left WINDOWS DEPLOYMENT TECHNICIAN Mid WINDOWS DEPLOYMENT TECHNICIAN Mid PSV 22 cm/s Left WINDOWS DEPLOYMENT TECHNICIAN Prox WINDOWS DEPLOYMENT TECHNICIAN Prox PSV 20 cm/s Left SFA Dist SFA Dist PSV 49 cm/s Left SFA Dist 2 SFA Dist 2 PSV 31 cm/s SFA Dist 2 EDV 13 cm/s Left SFA Mid SFA Mid PSV 17 cm/s Left SFA Mid 2 SFA Mid 2 PSV 0 cm/s Left SFA Mid 3 SFA Mid 3 PSV 0.6 cm/s Left SFA Origin SFA Origin PSV 34 cm/s Left SFA Prox SFA Prox PSV 20 cm/s Popliteal Right Popliteal 0.56 Signed 05/17/2023 03:23 PM Juan A Bassett MD Maria Isabel Barrios GRAIN HAND[employer]ER-[employer] HEL[facility]ASC[facility] O RDERABLES * APHERESIS/TRANSFUSION ORDER (05/02/2023 3:59 PM CDT) Narrative 05/02/2023 3:59 PM CDT Ordered by an unspecified provider. Scanned Document NURSING - VITAL SIGN S AND ASSESSMENT * (ABNORMAL) GLUCOSE - POINT OF CARE (05/01/2023 1:21 PM CDT) Only the most recent of97 resultswithin the time period is included. [facility] Glucose WB/POC 121(H) 70 - 106 mg/dL 05/01/2023 3:14 PM CDT [facility] Specimen Type Cap Fingerstick 2022 3:14 PM CDT [facility] Blood BLOOD SPECIMEN / Unknown 05/01/2023 1:21 PM CDT 05/01/2023 3:14 PM CDT Jm Waters MD LAB - POINT OF CARE ORDERABLES [facility] [address] [place] [address] * (ABNORMAL) CBC W/O DIFFERENTIAL (05/01/2023 8:34 AM CDT) Only the most recent of9 resultswithin the time period is included. [facility] WBC 8.8 4.4 - 10.7 x10E9/L 05/01/2023 8:40 AM CDT [facility] RBC 2.67(L) 3.80 - 5.40 x10E12/L 05/01/2023 8:40 AM CDT [facility] Hemoglobin 7.9(L) 12.0 - 17.6 gm/dL 05/01/2023 8:40 AM CDT [facility] Hematocrit 23.3(L) 35.2 - 51.7 % 05/01/2023 8:40 AM CDT [facility] MCV 87.3 80.7 - 98.3 fl 05/01/2023 8:40 AM CDT [facility] MCH 29.6 26.7 - 34.0 pg 05/01/2023 8:40 AM CDT [facility] MCHC 33.9 30.8 - 35.9 gm/dL 05/01/2023 8:40 AM CDT [facility] Platelet Count 288 153 - 416 x10E9/L 05/01/2023 8:40 AM CDT [facility] RDW-CV 16.6(H) 12.1 - 14.9 % 05/01/2023 8:40 AM CDT [facility] MPV 10.6 9.4 - 12.9 fl 05/01/2023 8:40 AM CDT [facility] Blood BLOOD SPECIMEN / Unknown Venipuncture / Unknown 05/01/2023 8:34 AM CDT 05/01/2023 8:34 AM CDT Karma Delcid MD LAB - HEMATOLOGY ORD ERABLES [facility] [address] [place] [address] * (ABNORMAL) RENAL FUNCTION PANEL (05/01/2023 8:34 AM CDT) Only the most recent of15 resultswithin the time period is included. Glucose 139(H) 70 - 105 mg/dL 05/01/2023 8:57 AM CDT [facility] Sodium 122(LL) 136 - 145 mmol/L 05/01/2023 8:57 AM CDT [facility] Potassium 4.5 3.5 - 5.1 mmol/L 05/01/2023 8:57 AM CDT [facility] Chloride 88(L) 98 - 107 mmol/L 05/01/2023 8:57 AM CDT [facility] CO2 22(L) 23 - 31 mmol/L 05/01/2023 8:57 AM CDT [facility] Calcium 10.2 8.4 - 10.4 mg/dL 05/01/2023 8:57 AM CDT [facility] Anion Gap 12 8 - 18 mmol/L 05/01/2023 8:57 AM CDT [facility] BUN 62(H) 8.4 - 25.7 mg/dL 05/01/2023 8:57 AM CDT [facility] Creatinine 8.72(H) 0.72 - 1.25 mg/dL 05/01/2023 8:57 AM CDT [facility] Albumin 3.3 3.2 - 4.6 gm/dL 05/01/2023 8:57 AM CDT [facility] Phosphorus 5.5(H) 2.3 - 4.7 mg/dL 05/01/2023 8:57 AM CDT [facility] eGFR by CKD-EPI 6(L) >=90 mL/min/1.7 3 m2 05/01/2023 8:57 AM CDT [facility] Blood BLOOD SPECIMEN / Unknown Venipuncture / Unknown 05/01/2023 8:34 AM CDT 05/01/2023 8:34 AM CDT Karma Delcid MD LAB - CHEMISTRY RJ AYALA Performing Organization Address [facility]/ZIP Co de Phone Number [facility] [address] [place], [place] [id number] * (ABNORMAL) FOLATE (04/27/2023 10:47 AM CDT) Folate 5.1(L) 7.0 - 31.4 ng/mL 04/27/2023 12:01 PM CDT [facility] Blood BLOOD SPECIMEN / Unknown Venipuncture / Unknown 04/27/2023 10:47 AM CDT 04/27/2023 11:07 AM CDT Karma Delcid MD LAB - CHEMISTRY ORDShahida AYALA Performing Organization Address [facility] Co de Phone Number [facility] [address] [place] [address] * (ABNORMAL) IRON + TRANSFERRIN PANEL (04/27/2023 10:47 AM CDT) Iron 46(L) 65 - 175 ug/dL 04/27/2023 11:26 AM CDT [facility] Transferrin 175 163 - 344 mg/dL 04/27/2023 11:26 AM CDT [facility] TIBC Calculated 219(L) 240 - 450 ug/dL 04/27/2023 11:26 AM CDT [facility] Iron Saturation % 21 20 - 50 % 04/27/2023 11:26 AM CDT [facility] Blood BLOOD SPECIMEN / Unknown Venipuncture / Unknown 04/27/2023 10:47 AM CDT 04/27/2023 11:07 AM CDT Karma Delcid MD LAB - CHEMISTRY RJ ARSLANMARIA ELENA Performing Organization Address [facility]/ZIP Co de Phone Number [facility] [address] [place] [address] * (ABNORMAL) FERRITIN (04/27/2023 10:47 AM CDT) Pathologist [facility] Ferritin 1,435(H) 22 - 275 ng/mL 04/27/2023 12:01 PM CDT [facility] Blood BLOOD SPECIMEN / Unknown Venipuncture / Unknown 04/27/2023 10:47 AM CDT 04/27/2023 11:07 AM CDT Karma Delcid MD LAB - CHEMISTRY RJ AYALA Performing Organization Address [facility] de Phone Number [facility] [id number] [place] [id number] * (ABNORMAL) BASIC METABOLIC PANEL (CALCIUM TOTAL) (04/27/2023 4:54 AM CDT) Only the most recent of11 resultswithin the time period is included. Pathologist [facility] Glucose 118(H) 70 - 105 mg/dL 04/27/2023 5:54 AM CDT [facility] Sodium 125(L) 136 - 145 mmol/L 04/27/2023 5:54 AM CDT [facility] Potassium 5.5(H) 3.5 - 5.1 mmol/L 04/27/2023 5:54 AM CDT [facility] Chloride 89(L) 98 - 107 mmol/L 04/27/2023 5:54 AM CDT [facility] CO2 25 23 - 31 mmol/L 04/27/2023 5:54 AM CDT [facility] Calcium 9.4 8.4 - 10.4 mg/dL 04/27/2023 5:54 AM CDT [facility] Anion Gap 11 8 - 18 mmol/L 04/27/2023 5:54 AM CDT [facility] BUN 31(H) 8.4 - 25.7 mg/dL 04/27/2023 5:54 AM CDT [facility] Creatinine 5.34(H) 0.72 - 1.25 mg/dL 04/27/2023 5:54 AM CDT [facility] eGFR by CKD-EPI 11(L) >=90 mL/min/1.7 3 m2 04/27/2023 5:54 AM CDT [facility] Blood BLOOD SPECIMEN / Unknown Venipuncture / Unknown 04/27/2023 4:54 AM CDT 04/27/2023 5:31 AM CDT Karma Delcid MD LAB - CHEMISTRY RJ AYALA [facility] [address] [place] [id number] * TRANSFUSE RED BLOOD CELL LEUKOREDUCED UNIT(S) (04/22/2023 3:02 AM CDT) Jacquelyn Shetty MD NURSING - BLOOD PROD TRANSFUSION * PREPARE (CROSSMATCH) RBC UNIT(S), 2 Units (04/21/2023 11:53 PM CDT) Unit Description AS1 LR PRBC [facility] Unit ABO O [facility] Rh POS [facility] Product Number R02 [facility] Donor # [id number] [facility] Unit Status transfused [facility] Product Code [id number] [facility] Blood Type Barcode 5100 [facility] Expiration Date D [facility] Unit Description AS1 LR PRBC [facility] Unit ABO O [facility] Unit Rh POS [facility] Product Number R02 [facility] Unit Donor # [id number] [facility]OD [facility] Unit Status transfused [facility] Product Code [id number] [facility] Blood Type Barcode 5100 [facility] Expiration Date D [facility] Blood Bank BLOOD SPECIMEN / Unknown 04/20/2023 1:15 PM CDT Silvia Rincon MD LAB - BLOOD BANK ORDERABLES [facility] [address] [phone] * TRANSFUSE RED BLOOD CELL LEUKOREDUCED UNIT(S) (04/20/2023 7:54 PM CDT) Jacquelyn Shetty MD NURSING - BLOOD PROD TRANSFUSION * PATHOLOGY TISSUE EXAM (STL) (04/20/2023 7:41 PM CDT) Case Report Surgical Pathology Report Case: [id number] Authorizing Provider: Matt Beyer DO Collected: 04/20/2023 07:41 PM Ordering Location: [facility] Received: 04/23/2023 06:38 AM Pathologist: Tl Doss MD Specimen: Artery Athero Plaque, LEFT ILIOFEMORAL ENDARTERECTOMY 04/25/2023 9:27 AM T [facility] Final Diagnosis A. Left iliofemoral, endarterectomy: -- Calcific atherosclerosis 04/25/2023 9:27 AM T [facility] Clinical History Peripheral arterial disease 04/25/2023 9:27 AM T [facility] Gross Description Received in formalin in a sterile container labeled Brandie Morrissey Jr, left iliofemoral endarterectomy, are multiple yellow-corbin atherosclerotic plaques of tissue measuring 2.3 x 1.3 x 0.6 cm in aggregate. [employer] sections are submitted in cassette A1 for decalcification. CH/eh 04/25/2023 9:27 AM T [facility] Microscopic Description Microscopic examination substantiates the above cited diagnosis. MC 04/25/2023 9:27 AM T [facility] Disclaimer All histochemical and/or immunohistochemical results are interpreted with controls that demonstrate appropriate staining reactions before reporting results. Note on use of immunocytochemistry reagents: This test was developed and its performance characteristic determined by [facility], Department of Laboratory Medicine. It has not been cleared or approved by the U.S. Food and Drug Administration (FDA). The FDA has determined that such clearance or approval is not necessary. The test is used for clinical purpose. It should not be regarded as investigational or for research. This laboratory is certified to perform high complexity testing. The performance characteristics of the IHC/JUAN JOSE assays have been validated on formalin-fixed paraffin embedded tissues only. The assays have not been validated on decalcified tissues. Results should be interpreted with caution. 04/25/2023 9:27 AM CDT [facility] Embedded Images 04/25/2023 9:27 AM CDT [facility] Pathology/Cytolo gy ATHEROMA / Unknown 04/20/2023 7:41 PM CDT 04/23/2023 6:38 AM CDT Matt Beyer DO LAB - PATHOLOGY/CY TOLOGY ORDERABLES [facility] [address] [place] [address] * ETT LINE PERFORMABLE (04/20/2023 6:09 PM CDT) Narrative Akhil Sanders APRN-CRNA - 04/20/2023 6:09 PM CDT Akhil Sanders APRN-CRNA 04/20/2023 6:09 PM Endotracheal Tube Placement: Patient Location: OR. Intubation Event Date/Time: 04/20/2023 6:01 PM Procedure: intubation (16232). Procedure Section: Sedation: under general anesthesia. Indications for Airway Management: anesthesia Induction: standard IV Patient Position: supine Mask Ventilation: easy with oral airway. Blade Type: Video Blade Size: 3 Laryngoscopy View: grade 1 (full cords) Intubation Adjuncts: stylet and video laryngoscope Tube: endotracheal tube Placement: oral Tube type: cuff - inflated Tube Size (MM): 8 Depth of Insertion (CM): 24 Measured From: teeth Cuff Inflated With: air Number of Attempts: 1. Placement Verified By: direct visualization, CO2 detector and CO2 monitor Dentition unchanged? Yes Difficult Airway? No. Procedure Start Time: 04/20/2023 6:01 PM. Staff Section Anesthesia Provider: Akhil Sanders APRN-CRNA, Performed the procedure Silvia Rincon MD GENERAL ANESTHESI A ORDERABLES * (ABNORMAL) PTT (04/20/2023 1:32 PM CDT) PTT 39.2(H) 23.0 - 38.4 sec 04/20/2023 1:50 PM CDT [facility] Blood BLOOD SPECIMEN / Unknown Venipuncture / Unknown 04/20/2023 1:32 PM CDT 04/20/2023 1:38 PM CDT Narrative [facility] - 04/20/2023 1:50 PM CDT Heparin Therapeutic Range for PTT: 69.0 - 110.0 seconds. Maria Isabel Barrios GRAIN HANDLER-FILTER TANK TENDER HELPER LAB - COAGULAT ION ORDERABLES Performing Organization Address [facility] Co de Phone Number [facility] [address] [place] [address] * PT-INR (04/20/2023 1:32 PM CDT) Only the most recent of2 resultswithin the time period is included. PT 14.2 12.1 - 14.8 sec 04/20/2023 1:50 PM CDT [facility] INR 1.1 0.9 - 1.1 04/20/2023 1:50 PM CDT [facility] Blood BLOOD SPECIMEN / Unknown Venipuncture / Unknown 04/20/2023 1:32 PM CDT 04/20/2023 1:38 PM CDT Narrative [facility] - 04/20/2023 1:50 PM CDT Conventional Warfarin Anticoagulant Therapy: INR Reference Range: 2.0-3.0 Intensive Warfarin Anticoagulant Therapy: INR Reference Range: 2.5-3.5 Maria Isabel Barrios GRAIN HANDLER-FILTER TANK TENDER HELPER LAB - COAGULAT ION ORDERABLES Performing Organization Address [facility]/ZIP Co de Phone Number [facility] [address] [place] [address] * TYPE + SCREEN PANEL (04/20/2023 1:10 PM CDT) Only the most recent of3 resultswithin the time period is included. ABO Rh O POS 04/20/2023 1:59 PM CDT [facility] Comment:History checked. Antibody Screen NEG 1:59 PM CDT [facility] Blood Bank BLOOD SPECIMEN / Unknown Venipuncture / Unknown 04/20/2023 1:10 PM CDT 04/20/2023 1:15 PM CDT Silvia Rincon MD LAB - BLOOD BANK ORDERABLES [facility] [address] [phone] * (ABNORMAL) CBC W AUTO DIFFERENTIAL (04/20/2023 1:10 PM CDT) Only the most recent of15 resultswithin the time period is included. WBC 7.2 4.4 - 10.7 x10E9/L 04/20/2023 1:21 PM CDT [facility] WBC Corrected 04/20/2023 1:21 PM CDT [facility] RBC 2.18(L) 3.80 - 5.40 x10E12/L 04/20/2023 1:21 PM CDT [facility] Hemoglobin 6.9(L) 12.0 - 17.6 gm/dL 04/20/2023 1:21 PM CDT [facility] Hematocrit 20.4(L) 35.2 - 51.7 % 04/20/2023 1:21 PM CDT [facility] MCV 93.6 80.7 - 98.3 fl 04/20/2023 1:21 PM CDT [facility] MCH 31.7 26.7 - 34.0 pg 04/20/2023 1:21 PM CDT [facility] MCHC 33.8 30.8 - 35.9 gm/dL 04/20/2023 1:21 PM CDT [facility] Platelet Count 212 153 - 416 x10E9/L 04/20/2023 1:21 PM CDT [facility] RDW-CV 14.1 12.1 - 14.9 % 04/20/2023 1:21 PM CDT [facility] MPV 10.9 9.4 - 12.9 fl 04/20/2023 1:21 PM CDT [facility] Neutrophils % 80.3(H) 44.0 - 73.0 % 04/20/2023 1:21 PM CDT [facility] Lymphocytes % 5.7(L) 20.0 - 43.0 % 04/20/2023 1:21 PM CDT [facility] Monocytes % 11.7 5.0 - 13.0 % 04/20/2023 1:21 PM CDT [facility] Eosinophils % 1.0 0.0 - 6.0 % 04/20/2023 1:21 PM CDT [facility] Basophils % 0.7 0.0 - 2.0 % 04/20/2023 1:21 PM CDT [facility] Immature Granulocytes 0.6 0 - 1 % 04/20/2023 1:21 PM CDT [facility] Neutrophil Absolute 5.75 2.01 - 7.14 x10E9/L 04/20/2023 1:21 PM CDT [facility] Lymphocytes Absolute 0.41(L) 1.07 - 3.94 x10E9/L 04/20/2023 1:21 PM CDT [facility] Monocytes Absolute 0.84 0.26 - 1.07 x10E9/L 04/20/2023 1:21 PM CDT [facility] Eosinophils Absolute 0.07 0 - 0.47 x10E9/L 04/20/2023 1:21 PM CDT [facility] Basophils Absolute 0.05 0 - 0.08 x10E9/L 04/20/2023 1:21 PM CDT [facility] Immature Granulocytes Absolute 0.04 0.00 - 0.06 x10E9/L 04/20/2023 1:21 PM CDT [facility] nRBC Auto 0 /100 WBC 04/20/2023 1:21 PM CDT [facility] Blood BLOOD SPECIMEN / Unknown Venipuncture / Unknown 04/20/2023 1:10 PM CDT 04/20/2023 1:15 PM CDT Silvia Rincon MD LAB - HEMATOLOGY ORDERABLES [facility] [address] [place] [address] * HYBRID IMAGING (04/19/2023 5:30 PM CDT) Only the most recent of2 resultswithin the time period is included. Narrative [facility] - 04/23/2023 2:10 PM CDT Please see the progress note. Matt Beyer DO CARDIAC INCLUSION INTERN R ADIANT [facility] [address] [place] [address] * ETT LINE PERFORMABLE (04/19/2023 3:58 PM CDT) Narrative Bradley Sharma APRN-CRNA - 04/19/2023 3:58 PM CDT Bradley Sharma APRN-CRNA 04/19/2023 3:59 PM Endotracheal Tube Placement: Patient Location: OR. Intubation Event Date/Time: 04/19/2023 3:54 PM Procedure: intubation (70600). Procedure Section: Sedation: under general anesthesia. Indications for Airway Management: anesthesia Procedure pretreatments used? No Induction: modified rapid sequence Patient Position: sniffing Mask Ventilation: easy with oral airway. Blade Type: Video Blade Size: 3 Laryngoscopy View: grade 1 (full cords) Intubation Adjuncts: video laryngoscope and stylet Tube: endotracheal tube Placement: oral Tube type: cuff - inflated Tube Size (MM): 8 Depth of Insertion (CM): 24 Measured From: lips Cuff volume (mL): 8 Cuff Inflated With: air Number of Attempts: 1. Placement Verified By: direct visualization, bilateral breath sounds, chest auscultation and CO2 monitor Tube secured with: adhesive tape. Dentition unchanged? Yes Difficult Airway? No. Procedure Start Time: 04/19/2023 3:54 PM. Staff Section Anesthesia Provider: Bradley Sharma APRN-CRNA, Performed the procedure Raji Hayes MD GENERAL ANESTHESIA O RDERABLES * ARTERIAL LINE PERFORMABLE (04/19/2023 2:15 PM CDT) Narrative Dank Daly MD - 04/19/2023 2:15 PM CDT Dank Daly MD 04/19/2023 2:15 PM Arterial Line Placement Procedure Note Patient Location: Holding Area. Procedure: Arterial Line (61806). Procedure Section Indications: continuous blood pressure monitoring and blood sampling needed. Consent: informed consent was obtained for the procedure. Skin Prep: Chloraprep. Orientation: Right. Site: radial. Site Identification: palpation and ultrasound guided with sterile sleeve and gel. Sterile Technique: cap, mask and sterile gloves. Local Types: lidocaine (XYLOCAINE) 1 % injection, 2 mL. Gauge: 20. Catheter Length: 1 and 3/4 inch. Catheter Type: Arrow. Seldinger Technique Used? Yes Number of Attempts: 3. Line Secured with: tape and Tegaderm. Procedure Tolerance: tolerated well. Events: none. Patient Sedated? No Local Anesthetic Used? Yes Staff Section Anesthesia Provider: Dank Daly MD, Performed the procedure Additional Comments: Lidocaine 1% use for skin infiltration. Patient moving from pain in left foot, unable to stay still. Dank Daly MD GENERAL ANESTHESIA O RDERABLES * (ABNORMAL) COMPREHENSIVE METABOLIC PANEL (04/19/2023 5:15 AM CDT) Only the most recent of2 resultswithin the time period is included. Glucose 117(H) 70 - 105 mg/dL 04/19/2023 6:19 AM CDT [facility] Sodium 124(LL) 136 - 145 mmol/L 04/19/2023 6:19 AM CDT [facility] Potassium 4.7 3.5 - 5.1 mmol/L 04/19/2023 6:19 AM CDT [facility] Chloride 86(L) 98 - 107 mmol/L 04/19/2023 6:19 AM CDT [facility] CO2 24 23 - 31 mmol/L 04/19/2023 6:19 AM CDT [facility] Calcium 9.8 8.4 - 10.4 mg/dL 04/19/2023 6:19 AM CDT [facility] Anion Gap 14 8 - 18 mmol/L 04/19/2023 6:19 AM CDT [facility] BUN 51(H) 8.4 - 25.7 mg/dL 04/19/2023 6:19 AM CDT [facility] Creatinine 7.46(H) 0.72 - 1.25 mg/dL 04/19/2023 6:19 AM CDT [facility] Alkaline Phosphatase 43 40 - 150 U/L 04/19/2023 6:19 AM CDT [facility] ALT <6 0 - 61 U/L 04/19/2023 6:19 AM CDT [facility] AST 15 5 - 34 U/L 04/19/2023 6:19 AM CDT [facility] Protein Total 6.2(L) 6.4 - 8.3 gm/dL 04/19/2023 6:19 AM CDT [facility] Albumin 3.4 3.2 - 4.6 gm/dL 04/19/2023 6:19 AM CDT [facility] Bilirubin Total 0.4 0.2 - 1.2 mg/dL 04/19/2023 6:19 AM CDT [facility] eGFR by CKD-EPI 7(L) >=90 mL/min/1.7 3 m2 04/19/2023 6:19 AM CDT [facility] Blood BLOOD SPECIMEN / Unknown Venipuncture / Unknown 04/19/2023 5:15 AM CDT 04/19/2023 5:49 AM CDT Maria Isabel Barrios APRN-FILTER TANK TENDER HELPER LAB - CHEMISTR Y ORDERABLES Performing Organization Address [facility] Co de Phone Number [facility] [address] [place] [address] * (ABNORMAL) PHOSPHORUS BLOOD (04/19/2023 5:15 AM CDT) Only the most recent of7 resultswithin the time period is included. Phosphorus 7.3(H) 2.3 - 4.7 mg/dL 04/19/2023 6:15 AM CDT [facility] Blood BLOOD SPECIMEN / Unknown Venipuncture / Unknown 04/19/2023 5:15 AM CDT 04/19/2023 5:49 AM CDT Adele Cabrera MD LAB - CHEMISTRY ORDE RABLES Performing Organization Address [facility] Co de Phone Number [facility] [address] [place] [address] * MAGNESIUM BLOOD (04/19/2023 5:15 AM CDT) Only the most recent of12 resultswithin the time period is included. Magnesium 2.2 1.6 - 2.6 mg/dL 04/19/2023 6:15 AM CDT [facility] Blood BLOOD SPECIMEN / Unknown Venipuncture / Unknown 04/19/2023 5:15 AM CDT 04/19/2023 5:49 AM CDT Adele Cabrera MD LAB - CHEMISTRY RJ AYALA [facility] Organization Address City/State/ZIP Co de Phone Number [facility] [address] [place] [address] * (ABNORMAL) ECHO COMPLETE W CONTRAST (04/18/2023 12:35 PM CDT) BSA [id number] m2 [facility] CV FUJI PACS LV biplane EF 68 52 - 72 % [facility] CV FUJI PACS LV A2C EF 65 48 - 76 % [facility] CV FUJ I PACS LV A4C EF 70 46 - 74 % [facility] CV FUJ I PACS LVOT stroke vol 70.14 cm3 SSM CV FUJI PACS LV stroke vol 2D teich 74.449 ml SSM CV FUJI PACS LV stroke vol index A4C MOD 80.99 ml SSM CV FUJI PACS LVIDd 4.85 4.2 - 5.8 cm SSM CV FUJI PACS IVSd MM 0.973 0.6 - 1 cm SSM CV FUJI PACS LVIDs 3.02 2.5 - 4.0 cm SSM CV FUJI PACS IVSd 2D 1.176 0.6 - 1 cm SSM CV FUJI PACS IVSs M-Mode 1.297 cm SSM CV F UJI PACS LVPWd 1.15 cm SSM CV FUJ I PACS LVPWs M-Mode 1.261 cm SSM CV FUJI PACS Fractional Shortening 2D 38 28 - 44 % SSM CV FUJI PACS LV ESV BP 40.833 21 - 61 mL SSM CV FUJI PACS LV ESV index BP 19.7 11 - 31 mL/m2 SSM CV FUJI PACS LV ESV A2C 34.462 15 - 75 mL SSM CV FUJI PACS LV EDV BP 129.617 mL SSM CV FUJ I PACS LV ESV A4C 49.623 22 - 78 mL SSM CV FUJI PACS LV EDV index BP 62.6 34 - 74 mL/m2 SSM CV FUJI PACS LV EDV A2C 140.162 59 - 175 mL SSM CV FUJI PACS LV EDV A4C 115.453 mL SSM CV FU JI PACS LV ESV 2D 35.627 21 - 61 mL SSM CV FUJI PACS LV EDV 2D 110.076 62 - 150 mL SSM CV FUJI PACS LVOT diam 2.1 cm SSM CV FUJ I PACS LVOT area 3.46 cm2 SSM CV FUJ I PACS LV RWT 0.473 [facility] An A2C 7.895 cm SSM CV F UJI PACS LV An A4C 7.563 cm SSM CV F UJI PACS LV mass m-mode 203.74 88 - 224 g SSM CV FUJI PACS LV mass index m-mode 98.45 49 - 115 g/m2 [facility] E pk khris 183.498 cm/s SSM CV F UJI PACS MV avg E/e' ratio 43.09 SS M CV FUJI PACS MV A pk khris 107.563 cm/s SSM CV F UJI PACS MV E A ratio 1.71 [facility] E' lateral khris 3.961 cm/s SS M [facility] DT 252 ms [facility] MV E' septal khris 4.604 cm/s [facility] E/e' septal 39.858 SSM C V FUJI PACS MV E/e' lateral 46.329 [facility] TR pk khris 273.9 cm/s [facility] LVOT pk khris 0.89 m/s SSM CV F UJI PACS LVOT mn khris 0.70 m/s SSM CV F UJI PACS LVOT mn grad 2.1 mmHg SSM CV FUJI PACS LVOT Cardiac Output 5.417 l/min SSM CV FUJI PACS LA ESV A2C MOD Index 35 ml/m2 SSM CV FUJI PACS LA ESV A4C MOD Index 41 ml/m2 SSM CV FUJI PACS LA vol BP A-L 84.926 mL SSM CV FUJI PACS TAPSE 1.586(A) 1.7 cm SSM CV FUJ I PACS RA vol index 14 mL/m2 SSM CV FUJI PACS RA area 13.846 cm2 SSM CV FUJ I PACS AV mn grad 8 mmHg SSM CV FU JI PACS AV pk grad 13 mmHg SSM CV FU JI PACS AV mn khris 1.29 m/s SSM CV FUJ I PACS AV pk khris 1.82 m/s SSM CV FUJ I PACS AV VTI 41.166 cm SSM CV FUJ I PACS LVOT pk grad 3.196 mmHg SSM CV FUJI PACS LVOT VTI 20.262 cm SSM CV FUJ I PACS AV area planimetry 1.70 cm2 SSM CV FUJI PACS AV area index 0.8 cm2/m2 SSM CV FUJI PACS AV area cont VTI 1.6 cm2 SSM CV FUJI PACS AV area pk khris 1.6 cm2 SSM C V FUJI PACS AV Doppler khris index pk khris 0.49 SSM CV FUJI PACS Dimensionless Index 0.492 SSM CV FUJI PACS MV PHT 73 ms SSM CV FUJ I PACS MV area PHT 3.01 cm2 SSM CV F UJI PACS MV decel slope 727.64 cm/s2 SSM C V FUJI PACS TR pk grad 30 mmHg SSM CV FU JI PACS MS pk grad 7 mmHg SSM CV FU JI PACS PV pk khris 136.348 cm/s SSM CV FUJ I PACS PV pk grad 7 mmHg SSM CV FU JI PACS [id number] 6.907 cm SSM CV FUJ I PACS [id number] 6.723 cm SSM CV FUJ I PACS EF M-Mode 62 % SSM CV FUJ I PACS LA Size 5.452 cm SSM CV FUJ I PACS LV stroke vol BP 88.784 mL SSM CV FUJI PACS LVIDs index 1.46 1.3 - 2.1 cm/m2 SSM CV FUJI PACS LV LVIDd index 2.34 2.2 - 3.0 cm/m2 SSM CV FUJI PACS Anatomical Region Laterality Modality Ultrasound Narrative 04/18/2023 5:48 PM CDT Left Ventricle: Left ventricle size is normal. Mildly increased wall thickness. Normal systolic function with a visually estimated EF of 65 - 70%. Normal wall motion. Grade II diastolic dysfunction with elevated left atrial pressure. Left Ventricle Left ventricle size is normal. Mildly increased wall thickness. Normal systolic function with a visually estimated EF of 65 - 70%. Normal wall motion. Grade II diastolic dysfunction with elevated left atrial pressure. Right Ventricle Right ventricle size is normal. Normal systolic function. Left Atrium Left atrium size is normal. Right Atrium Right atrium size is normal. IVC/SVC IVC diameter is less than or equal to 21 mm and decreases greater than 50% during inspiration; therefore the estimated right atrial pressure is normal (~3 mmHg). Mitral Valve Valve structure is normal. Moderate mitral annular calcification. No restricted motion. Mild to moderate regurgitation. No stenosis. Tricuspid Valve Valve structure is normal. No restricted motion. Trace regurgitation. No stenosis. Aortic Valve Not well visualized. Valve structure is trileaflet. Mildly calcified leaflets. No restricted motion. No regurgitation. No stenosis. Pulmonic Valve Valve structure is normal. No restricted motion. No regurgitation. No stenosis. Main pulmonary artery size is normal. Ascending Aorta Normal sized sinus of Valsalva (aortic root) and ascending aorta. Pericardium No pericardial effusion. Study Details Study quality was adequate. A complete 2D, color Doppler, spectral Doppler and M-mode echocardiogram was performed. The apical, parasternal, subcostal and suprasternal views were obtained. Definity ultrasound enhancing agent used. Technical difficulties due to patient supine position. Procedure Note Heladio Marie MD - 04/18/2023 Left Ventricle: Left ventricle size is normal. Mildly increased wallthickness. Normal systolic function with a visually estimated EF of 65 -70%. Normal wall motion. Grade II diastolic dysfunction with elevated leftatrial pressure. Rico Gallagher MD ECHO CUPID * (ABNORMAL) SLIDE SCAN HEMATOLOGY (04/17/2023 5:43 AM CDT) Platelet Estimation Adequate platelets Normal, Adequate platelets 04/17/2023 8:42 AM CDT [facility] Poikilocytosis 1+(A) None 04/17/2023 8:42 AM CDT [facility] Crenated Cells 1+(A) None 04/17/2023 8:42 AM CDT [facility] Blood BLOOD SPECIMEN / Unknown Venipuncture / Unknown 04/17/2023 5:43 AM CDT 04/17/2023 6:03 AM CDT Adele Cabrera MD LAB - HEMATOLOGY ORD ERABLES Performing Organization Address City/[facility] Co de Phone Number [facility] [address] [place] [address] * EKG 12-LEAD (04/13/2023 2:41 PM CDT) Only the most recent of3 resultswithin the time period is included. Ventricular Rate 75 BPM [facility] Atrial Rate 75 BPM [facility] P-R Interval 236 ms [facility] QRS Duration ms 142 ms [facility] Q-T Interval ms 514 ms [facility] QTC Calculation (Bezet) 573 ms [facility] Calculated P [place] 74 degrees [facility] Calculated R [place] -20 degrees [facility] Calculated T [place] -152 degrees [facility] Interpretation EKG Sinus rhythm with 1st degree A-V block with frequent Premature ventricular complexes Right bundle branch block T wave abnormality, consider lateral ischemia Abnormal ECG No previous ECGs available Confirmed by WILLIAM KIRBY MD ([id number]) on 04/16/2023 5:21:48 PM [facility] 04/13/2023 2:41 PM CDT 04/16/2023 5:21 PM CDT Rico Gallagher MD ECG ORDERABLES Performing Organization Address [facility] Co de Phone Number [facility] * NM MYOCARD PERF REST STRESS (04/13/2023 2:05 PM CDT) Anatomical Region Laterality Modality Chest Nuclear Medicine 04/13/2023 2:38 PM CDT Impressions 04/13/2023 2:39 PM CDT IMPRESSION: 1. No evidence of pharmacologically induced reversible defect to suggest ischemia. 2. Normal left ventricle wall motion, with a composite left ventricular ejection fraction of 47 %. > Interpreting Provider: Juan A Ford JR, MD on 04/13/2023 2:39 PM Narrative 04/13/2023 2:39 PM CDT MYOCARDIAL SPECT MULTI MYOCARDIAL PERFUSION WITH EJECTION FRACTION MYOCARDIAL PERFUSION WITH WALL MOTION INDICATION: Chest Pain RADIOPHARMACEUTICAL: 10 mCi of Tc99m Tetrofosmin at rest and 30mCi Tc99m Tetrofosmin at stress. 0.4 mg of Lexiscan given intravenously. TECHNIQUE: After the resting SPECT images were made, the patient was given the Lexiscan dose and the stress dose of tracer was given, and the patient was reimaged, using SPECT technique. FINDINGS: Stress and rest images show homogeneous uptake of radiotracer throughout the left ventricle. No significant fixed or reversible perfusion defects are seen. WALL MOTION ANALYSIS: 3-D reconstruction of the gated data shows the left ventricular ejection fraction to measure 47 %. No wall motion abnormality is present. Procedure Note Juan A Ford MD - 04/13/2023 MYOCARDIAL SPECT MULTI MYOCARDIAL PERFUSION WITH EJECTION FRACTION MYOCARDIAL PERFUSION WITH WALL MOTION INDICATION: Chest Pain RADIOPHARMACEUTICAL: 10 mCi of Tc99m Tetrofosmin at rest and 09vLrAc15o Tetrofosmin at stress. 0.4 mg of Lexiscan given intravenously. TECHNIQUE: After the resting SPECT images were made, the patient wasgiven the Lexiscan dose and the stress dose of tracer was given, and thepatient was reimaged, using SPECT technique. FINDINGS: Stress and rest images show homogeneous uptake of radiotracer throughout the left ventricle. No significant fixed or reversibleperfusion defects are seen. WALL MOTION ANALYSIS: 3-D reconstruction of the gated data shows theleft ventricular ejection fraction to measure 47 %. No wall motionabnormality is present. IMPRESSION: 1. No evidence of pharmacologically induced reversible defect tosuggest ischemia. 2. Normal left ventricle wall motion, with a composite left ventricular ejection fraction of 47 %. > Interpreting Provider: Juan A Ford JR, MD on 04/13/2023 2:39 PM Rico Gallagher MD NM ORDERABLES * STRESS TEST (04/13/2023 12:35 PM CDT) Target HR 123 bpm [facility] STRESS Max Age Predicted HR [address] [facility] [address] Base [address] Depression (mm) 0 mm [facility] STRESS Anatomical Region Laterality Modality Cardiac Electrop hysiology Narrative 04/13/2023 6:26 PM CDT Stress ECG: The ECG was positive for ischemia. Nuclear images to be reported separately. Resting ECG ECG is abnormal with t wave inversions in inferolateral leads. Resting ECG shows no clinically relevant ST-segment deviation. The ECG shows normal sinus rhythm. Stress Findings A pharmacological stress test was performed using regadenoson. The patient reported dyspnea during the stress test. Blood pressure demonstrated a normal response and heart rate demonstrated a normal response to stress. The patient's heart rate recovery was normal. Stress ECG down sloping ST depression (V5) was noted. Arrhythmias during stress: occasional PVCs. Arrhythmias during recovery: occasional PVCs. The ECG was positive for ischemia. Procedure Note Heladio Marie MD - 04/13/2023 Stress ECG: The ECG was positive for ischemia. Nuclear images to be reported separately. Rico Gallagher MD CARDIAC SERVICES CUP ID * (ABNORMAL) TROPONIN I (04/12/2023 12:02 PM CDT) Only the most recent of5 resultswithin the time period is included. Pathologist [facility] [place] Troponin I 0.948(HH) <0.038 ng/mL 04/12/2023 12:45 PM CDT [facility] Blood BLOOD SPECIMEN / Unknown Venipuncture / Unknown 04/12/2023 12:02 PM CDT 04/12/2023 12:11 PM CDT Parveen Sewell MD LAB - CHEMISTRY RJ AYALA [facility] [address] [place] [address] * TSH REFLEX FREE T4 (04/12/2023 3:52 AM CDT) Pathologist [facility] [place] TSH 1.592 0.350 - 4.940 uIU/mL 04/12/2023 5:04 AM CDT [facility] Blood BLOOD SPECIMEN / Unknown Venipuncture / Unknown 04/12/2023 3:52 AM CDT 04/12/2023 4:04 AM CDT Parveen Sewell MD LAB - CHEMISTRY RJ AYLAA Performing Organization Address [facility] Co de Phone Number [facility] [id number] [place] [phone] * AMMONIA (04/12/2023 3:52 AM CDT) Ammonia 19 18 - 72 umol/L 04/12/2023 4:19 AM CDT [facility] Blood BLOOD SPECIMEN / Unknown Venipuncture / Unknown 04/12/2023 3:52 AM CDT 04/12/2023 4:02 AM CDT Parveen Sewell MD LAB - CHEMISTRY RJ AYALA Performing Organization Address [facility] de Phone Number [facility] [address] [place] [id number] * LACTIC ACID BLOOD (04/11/2023 11:37 PM CDT) Only the most recent of3 resultswithin the time period is included. Lactic Acid 0.50 <=2 mmol/L 04/12/2023 12:00 AM CDT [facility] Blood BLOOD SPECIMEN / Unknown Venipuncture / Unknown 04/11/2023 11:37 PM CDT 04/11/2023 11:48 PM CDT Parveen Sewell MD LAB - CHEMISTRY RJ AYALA Performing Organization Address [facility] de Phone Number [facility] [id number] [place] [phone] * (ABNORMAL) COAGULATION PANEL W D-DIMER (04/11/2023 3:13 PM CDT) PT 14.0 12.1 - 14.8 sec 04/11/2023 3:35 PM CDT [facility] INR 1.1 0.9 - 1.1 04/11/2023 3:35 PM CDT [facility] PTT 35.1 23.0 - 38.4 sec 04/11/2023 3:35 PM CDT [facility] Fibrinogen 438(H) 200 - 400 mg/dL 04/11/2023 3:35 PM CDT [facility] D-Dimer 2.37(H) 0.27 - 0.50 ug/mL FEU 04/11/2023 3:35 PM CDT [facility] Platelet Count 224 153 - 416 x10E9/L 04/11/2023 3:35 PM CDT [facility] Blood BLOOD SPECIMEN / Unknown Venipuncture / Unknown 04/11/2023 3:13 PM CDT 04/11/2023 3:17 PM CDT Narrative [facility] - 04/11/2023 3:35 PM CDT Conventional Warfarin Anticoagulant Therapy INR Reference Range: 2.0-3.0 Intensive Warfarin Anticoagulant Therapy INR Reference Range: 2.5-3.5 Heparin Therapeutic Range for PTT: 69.0 - 110.0 seconds. In the absence of clinical symptoms, a value less than or equal to 0.5 mcg/mL FEU significantly decreases the probability of PE/DVT (negative predictive value >95%). 1 mcg/ml FEU = 1 Fibrinogen Equivalent Unit (approximates 0.5 mcg/mL of D- dimer). ISTH DIAGNOSTIC SCORING SYSTEM FOR DIC ---- Score 0 1 2 3 Platelet Count (x10^3/uL) > 100 <100 < 50 N/A PT Prolongation above Upper limit of normal 0-3 3-6 > 6 N/A Range (seconds) Fibrinogen (mg/dL) >100 < 100 N/A N/A D-Dimer (mcg/mL FEU) < 0.50 N/A 0.50-5.0 > 5 Calculate Cumulative Score: > or = 5: compatible with overt DIC < 5: suggestive for non-overt DIC N/A = Non applicable Reference: Br. J. Haematol. 145:24-33,2009. Parveen Sewell MD LAB - COAGULATION OR DERABLES [facility] [address] [place] [address] * (ABNORMAL) BLOOD GASES ARTERIAL (04/11/2023 3:09 PM CDT) pH Arterial 7.45 7.35 - 7.45 pH 04/11/2023 3:14 PM CDT [facility] pO2 Arterial 59(L) 80 - 100 mmHg 04/11/2023 3:14 PM CDT [facility] pCO2 Arterial 43 35 - 45 mmHg 04/11/2023 3:14 PM CDT [facility] HCO3 Arterial 29.9(H) 22.0 - 26.0 mmol/L 04/11/2023 3:14 PM CDT [facility] BE Arterial 5.2(H) -2.0 - 2.0 mmol/L 04/11/2023 3:14 PM CDT [facility] O2 Saturation Arterial 90 90 - 100 % 04/11/2023 3:14 PM CDT [facility] Freeman's Test NA 04/11/2023 3:14 PM CDT [facility] Mode PRVC 04/11/2023 3:14 PM CDT [facility] FI O2 40.0 % 04/11/2023 3:14 PM CDT [facility] Mechanical Tidal Volume (mL) 480 04/11/2023 3:14 PM CDT [facility] Mechanical Respiratory Rate (bpm) 16 04/11/2023 3:14 PM CDT [facility] PEEP (cmH2O) 5 04/11/2023 3:14 PM CDT [facility] Blood, arterial ARTERIAL BLOOD SPECIMEN / Unknown 04/11/2023 3:09 PM CDT 04/11/2023 3:09 PM CDT Parveen Sewell MD LAB - BLOOD GASES OR DERABLES Performing Organization Address City/State/[facility] Co de Phone Number [facility] [address] [phone] * XR CHEST 1VW PORTABLE (04/11/2023 2:40 PM CDT) Anatomical Region Laterality Modality Chest Radiographic April ging 04/11/2023 2:42 PM CDT Narrative 04/11/2023 2:47 PM CDT PROCEDURE: XR CHEST 1VW PORTABLE DATE/TIME OF EXAM: 04/11/2023 2:40 PM CLINICAL INFORMATION: CPR Indication: R06.02: Shortness of breath Additional History: COMPARISON: None. Findings/impression: The patient is intubated. Hazy opacities are noted bilaterally suggesting pulmonary edema or pneumonia. No effusion or pneumothorax is noted. Patient status post median sternotomy. Transcutaneous pacers are noted. The heart chambers appear mildly enlarged. Osseous structures appear grossly intact. > Interpreting Provider: Edwin Briones DO on 04/11/2023 2:47 PM Procedure Note Anselmo Edwin DO Kathie - 04/11/2023 PROCEDURE: XR CHEST 1VW PORTABLE DATE/TIME OF EXAM: 04/11/2023 2:40 PM CLINICAL INFORMATION: CPR Indication: R06.02: Shortness of breath Additional History: COMPARISON: None. Findings/impression: The patient is intubated. Hazy opacities are noted bilaterallysuggesting pulmonary edema or pneumonia. No effusion or pneumothorax is noted.Patient status post median sternotomy. Transcutaneous pacers are noted. Theheart chambers appear mildly enlarged. Osseous structures appear grosslyintact. > Interpreting Provider: Edwin Briones DO on 04/11/2023 2:47 PM Matt Beyer DO DIAGNOSTIC IMAGING ORDERABLES * ETT LINE PERFORMABLE (04/11/2023 2:01 PM CDT) Narrative Diamond Spring MD - 04/11/2023 2:01 PM CDT Dank Casey APRN-CRNA 04/11/2023 2:04 PM Endotracheal Tube Placement: Patient Location: OR. Intubation Event Date/Time: 04/11/2023 1:40 PM Procedure: intubation ([id number]). Procedure Section: Sedation: none. Procedure pretreatments used? No Induction: cricoid pressure and patient unconcious Patient Position: sniffing Mask Ventilation: easy. Blade Type: Video Blade Size: 3 Laryngoscopy View: grade 1 (full cords) Intubation Adjuncts: stylet Tube: endotracheal tube Placement: oral Tube type: cuff - inflated Tube Size (MM): 8 Depth of Insertion (CM): 22 Measured From: lips Cuff volume (mL): 10 Cuff Inflated With: air Number of Attempts: 1. Placement Verified By: direct visualization, bilateral breath sounds and CO2 monitor Tube secured with: adhesive tape. Procedure Start Time: 04/11/2023 1:40 PM. Procedure End Time: 04/11/2023 1:41 PM. Procedure Total Time: 1 minutes. Staff Section Anesthesia Provider: Dank Casey, GRAIN HANDLER-EDUCATIONAL TECHNOLOGY COORDINATOR, Performed the procedure Diamond Spring MD GENERAL ANESTHESIA O EDGAR * ARTERIAL LINE PERFORMABLE (04/11/2023 1:57 PM CDT) Narrative Diamond Spring MD - 04/11/2023 1:57 PM CDT Dank Casey, PIPER 04/11/2023 2:01 PM Arterial Line Placement Procedure Note Patient Location: OR. Procedure: Arterial Line ([id number]). Procedure Section Indications: hypotension and renal failure. Alternatives Discussed: no treatment Skin Prep: alcohol. Orientation: Left. Site: femoral. Site Identification: ultrasound guided with sterile sleeve and gel. Sterile Technique: small sterile fenestrated drape, sterile gloves, mask and cap. Gauge: 20. Seldinger Technique Used? Yes Number of Attempts: 1. Line Secured with: tape. Procedure Tolerance: tolerated well (while CPR was being initiated). Events: other - please comment (asystole). Procedure Start Time: 04/11/2023 1:30 PM. Procedure End Time: 04/11/2023 1:35 PM. Procedure Total Time: 5 minutes. Patient Sedated? No Local Anesthetic Used? No Staff Section Anesthesia Provider: Dank Casey, GRAIN HANDLER-EDUCATIONAL TECHNOLOGY COORDINATOR, Performed the procedure Diamond Spring MD GENERAL ANESTHESIA O YAIMAERAMARIO * LACTIC ACID BLOOD REFLEX TO REPEAT (04/07/2023 11:52 AM CDT) Lactic Acid 0.54 <=2 mmol/L 04/07/2023 12:20 PM CDT [facility] Blood BLOOD SPECIMEN / Unknown Venipuncture / Unknown 04/07/2023 11:52 AM CDT 04/07/2023 12:00 PM CDT Ilan Black MD LAB - CHEMISTRY RJ AYALA [facility] [address] [place] [address] * CT ANGIO ABDOMEN AORTA W RUNOFF (04/07/2023 9:20 AM CDT) Anatomical Region Laterality Modality Abdomen, Lower Extremity Compute d Tomography 04/08/2023 8:51 PM CDT Impressions 04/08/2023 9:08 PM CDT IMPRESSION: 1. Extensive atherosclerotic changes, as described above. 2. There are dense serial calcific plaques seen along the course of the superficial femoral, popliteal and trifurcation branches and confident confirmation of patency cannot be made. At least serial moderate and high-grade stenoses are seen. Catheter angiography might be needed for better assessment. 3. Moderate bilateral pleural effusions. 4. Prostatic enlargement and bladder wall thickening > Interpreting Provider: Raji Danielson MD on 04/08/2023 9:08 PM Narrative 04/08/2023 9:08 PM CDT PROCEDURE: CT ANGIO ABDOMEN AORTA W RUNOFF, DATE/TIME OF EXAM: 04/07/2023 9:55 AM, LOCATION [facility] INDICATION: I70.90: Unspecified atherosclerosis ADDITIONAL CLINICAL INFORMATION: Ordering Provider Reason For Exam: Technologist Note: Additional: COMPARISON: None. CT ANGIOGRAPHY OF THE ABDOMINAL AORTA AND LOWER EXTREMITIES - MIP AND VOLUME RENDERING RECONSTRUCTIONS MADE AT THE [facility]. INDICATION: 77 year old Male with chronic renal disease, coronary artery disease and peripheral vascular disease. He has left foot pain, primarily in the fourth toe. He is reported to have no palpable femoral pulses., TECHNIQUE: Thin section axial images were made through the abdomen and lower extremities, during the bolus infusion of 125 cc of Isovue-370. Multiple sagittal and coronal MIP reconstructions were made, as were 3-D volume renderings, at the workstation. CT dose reduction technique was used, including Automated Exposure Control. FINDINGS: I do not have any prior CT angiograms for comparison.. Dense atherosclerotic calcifications are seen in the aortic arch, the coronary artery branches in the arch vessels. I do not see any evidence of thoracic aortic dissection or hemorrhage. Atherosclerotic calcifications are seen at the origins and more distal portions of the celiac, superior mesenteric, both renal and the inferior mesenteric artery branches. There is no retroperitoneal hemorrhage or aneurysmal dilatation. Dense atherosclerotic calcifications are seen in the common, internal and external iliac branches. On the right, there is greater than 50% narrowing, by calcific plaque, of the patent right common femoral artery. Serial moderate and high-grade stenoses are seen in the proximal right superficial femoral artery and there may be serial occlusions. Dense calcification limits detail.. There is reconstitution of the right right popliteal artery and atherosclerotic changes are seen in the trifurcation branches. The anterior and posterior tibial arteries are densely calcified, and show at least moderate stenoses. The anterior and posterior tibial artery branches do cross the ankle. The peroneal artery is patent to at least the level of the distal tibial metaphysis. Because of the dense calcifications, patency of the trifurcation vessels cannot BE confirmed. There is dense calcification in the left common femoral artery, and common femoral artery patency cannot be confirmed entirely.. The profunda and superficial femoral artery branches show serial moderate and high-grade stenoses and because of the dense calcifications, I cannot exclude serial occlusions. There is at least a 50% narrowing of the left popliteal artery the level of the proximal tibial articular surface. Dense atherosclerotic calcifications involving the anterior tibial, common peroneal posterior tibial artery trunk. Dense calcifications are seen along the courses of the anterior and posterior tibial arteries, which appear to cross the ankle and supply the foot. There are patency cannot be confidently confirmed, because of the dense calcifications. There are moderate bilateral pleural effusions. There has been a prior sternotomy. I do not see any abnormally dilated small or large bowel loops. There is no hydronephrosis. There is no perinephric edema. Degenerative changes are seen in the lumbar spine. Urinary bladder is not distended, but there is wall thickening. There is considerable enlargement of the prostate gland, measuring at least 7.1 x 5.4 x 7.1 cm. Procedure Note Raji Danielson MD - 04/08/2023 PROCEDURE: CT ANGIO ABDOMEN AORTA W RUNOFF, DATE/TIME OF EXAM:04/07/2023 9:55 AM, LOCATION [facility] INDICATION: I70.90: Unspecified atherosclerosis ADDITIONAL CLINICAL INFORMATION: Ordering Provider Reason For Exam: Technologist Note: Additional: COMPARISON: None. CT ANGIOGRAPHY OF THE ABDOMINAL AORTA AND LOWER EXTREMITIES - MIP AND VOLUME RENDERING RECONSTRUCTIONS MADE AT THE [facility] LAB. INDICATION: 77 year old Male with chronic renal disease, coronary artery disease and peripheral vascular disease. He has left foot pain,primarily in the fourth toe. He is reported to have no palpable femoral pulses., TECHNIQUE: Thin section axial images were made through the abdomen and lower extremities, during the bolus infusion of 125 cc of Isovue-370. Multiple sagittal and coronal MIP reconstructions were made, as were 3-D volume renderings, at the workstation. CT dose reduction technique was used, including Automated Exposure Control. FINDINGS: I do not have any prior CT angiograms for comparison.. Dense atherosclerotic calcifications are seen in the aortic arch, the coronary artery branches in the arch vessels. I do not see any evidenceof thoracic aortic dissection or hemorrhage. Atherosclerotic calcifications are seen at the origins and more distal portions of the celiac, superior mesenteric, both renal and the inferior mesenteric artery branches. There is no retroperitoneal hemorrhage or aneurysmal dilatation. Dense atherosclerotic calcifications are seen in the common, internaland external iliac branches. On the right, there is greater than 50% narrowing, by calcific plaque,of the patent right common femoral artery. Serial moderate and high-grade stenoses are seen in the proximal right superficial femoral artery and there may be serial occlusions. Dense calcification limits detail.. There is reconstitution of the right right popliteal artery and atherosclerotic changes are seen in the trifurcation branches. Theanterior and posterior tibial arteries are densely calcified, and show at least moderate stenoses. The anterior and posterior tibial artery branches do cross the ankle. The peroneal artery is patent to at least the level ofthe distal tibial metaphysis. Because of the dense calcifications, patencyof the trifurcation vessels cannot BE confirmed. There is dense calcification in the left common femoral artery, andcommon femoral artery patency cannot be confirmed entirely.. The profunda and superficial femoral artery branches show serial moderate and high-grade stenoses and because of the dense calcifications, I cannot excludeserial occlusions. There is at least a 50% narrowing of the left popliteal artery the levelof the proximal tibial articular surface. Dense atheroscleroticcalcifications involving the anterior tibial, common peroneal posterior tibial artery trunk. Dense calcifications are seen along the courses of the anteriorand posterior tibial arteries, which appear to cross the ankle and supplythe foot. There are patency cannot be confidently confirmed, because of the dense calcifications. There are moderate bilateral pleural effusions. There has been a prior sternotomy. I do not see any abnormally dilated small or large bowelloops. There is no hydronephrosis. There is no perinephric edema. Degenerative changes are seen in the lumbar spine. Urinary bladder is not distended, but there is wall thickening. There is considerable enlargement of the prostate gland, measuring at least 7.1 x 5.4 x 7.1 cm. IMPRESSION: 1. Extensive atherosclerotic changes, as described above. 2. There are dense serial calcific plaques seen along the course of the superficial femoral, popliteal and trifurcation branches and confident confirmation of patency cannot be made. At least serial moderate and high-grade stenoses are seen. Catheter angiography might be needed for better assessment. 3. Moderate bilateral pleural effusions. 4. Prostatic enlargement and bladder wall thickening > Interpreting Provider: Raji Danielson MD on 04/08/2023 9:08 PM Juan A Bassett MD CT ORDERABLES * (ABNORMAL) HEPATITIS B SURFACE ANTIBODY QUANT (04/07/2023 8:19 AM CDT) Pathologist [facility] [place] Hepatitis B Virus Surface Antibody Quantitative 33.58(H) 0.00 - 7.99 mIU/ml 04/07/2023 1:34 PM CDT [facility] HBsAb REACTIVE( A) Non Reactive 04/07/2023 1:34 PM CDT [facility] Blood BLOOD SPECIMEN / Unknown Venipuncture / Unknown 04/07/2023 8:19 AM CDT 04/07/2023 8:31 AM CDT Narrative [facility] - 04/07/2023 1:34 PM CDT Individual is considered immune to HBV infection. Marito Rios MD LAB - SEROLOGY ORDER JENNIFER Performing Organization Address City/State/[facility] Co de Phone Number [facility] [address] [place] [address] * HEPATITIS SCREEN ACUTE (04/07/2023 8:19 AM CDT) Pathologist [facility] [place] HAV Antibody IgM Non Reactive Non Reactive 04/07/2023 9:28 AM CDT [facility] HBsAg Non Reactive Non Reactive 04/07/2023 9:28 AM CDT [facility] HBc Antibody IgM Non Reactive Non Reactive 04/07/2023 9:28 AM CDT [facility] HCV Antibody Screen Non Reactive Non Reactive 04/07/2023 9:28 AM CDT [facility] Blood BLOOD SPECIMEN / Unknown Venipuncture / Unknown 04/07/2023 8:19 AM CDT 04/07/2023 8:31 AM CDT Narrative [facility] - 04/07/2023 9:28 AM CDT Non Reactive - Antibodies to Hepatitis C virus (HCV) were not detected, result does not exclude early acute HCV infection. Marito Rios MD LAB - CHEMISTRY RJ AYALA Performing Organization Address [facility] Co de Phone Number [facility] [address] [place] [address] * HEMOGLOBIN A1C (04/07/2023 4:28 AM CDT) Hemoglobin A1c 4.8 <5.7 % 04/07/2023 5:05 AM CDT [facility] Estimated Average Glucose 91 mg/dL 04/07/2023 5:05 AM CDT [facility] Blood BLOOD SPECIMEN / Unknown Venipuncture / Unknown 04/07/2023 4:28 AM CDT 04/07/2023 4:36 AM CDT Narrative [facility] - 04/07/2023 5:05 AM CDT HbA1c Interpretation: Normal: < 5.7% Pre-diabetes: 5.7-6.4% Diabetes: Equal to or greater than 6.5% Test results diagnostic of diabetes should be repeated for confirmation. Treatment target values recommended by ADA and other clinical organizations should be used to evaluate metabolic control in patients. This test should not replace glucose testing for patients with Type 1 diabetes, pediatric patients, or women. Falsely low HbA1c results may be observed in patients with clinical conditions that shorten erythrocyte life span or decrease mean erythrocyte age such as the presence of unstable hemoglobin variants, elevated hemoglobin F level or other causes of hemolytic anemia. HbA1c may not accurately reflect glycemic control when clinical conditions that affect erythrocyte survival are present. Severe Iron deficiency anemia may yield falsely high results. Hemoglobin A1c assay should not be used to diagnose or monitor diabetes in patients with malignancy, recent blood transfusion, chronic kidney or liver disease. This method may yield falsely low results when hemoglobin (HbF) exceeds 5% in the specimen. The [employer] assay for the measurement of HbA1c is a National Glycohemoglobin Standardization Program (NGSP) certified method. Susana MUSE LAB - CHEMISTRY Elli HERNÁNDEZ Performing Organization Address [facility] Co de Phone Number [facility] [address] [place] [address] * VAS ARTERIAL ANKLE ARM INDEX (04/05/2023 2:55 PM CDT) Anatomical Region Laterality Modality Ankle / Foot, Upper Extremity Ul trasound 04/05/2023 2:37 PM CDT Narrative Procedure Note Juan A Bassett MD - 04/05/2023 [facility] [place] [facility] [address] [address], [address] [place] [address] Lower Extremity Arterial Doppler Report Pat.Name: GUILLERMO BRANDIE Ashlyn MCKAY Pat.ID: [id number] .Date: 04/05/2023 Refer.MD: Juan A Bassett Exam Time: 2:37:00 PM Study Type:MARTY/PVR Age: 7 1945,77Y Sex: MALE Sonogrphr: Ebenezer Terrazas Rvt Pat. Stat.:Outpatient CPT - 4: 14375 Reason for Study: Pain -Leg, left Procedures: Ankle Arm Index Race: 2 Visit ID: [id number] ++++++++++++++++++++++++++++++++++++ SUMMARY: ++++++++++++++++++++++++++++++++++++ Severe arterial disease in lower extremities bilaterally. The left lower extremity has limb threatening ischemia ++++++++++++++++++++++++++++++++++++ FINDINGS: ++++++++++++++++++++++++++++++++++++ Procedure: The arterial vasculature of the lower extremities was evaluated by analysis of Doppler pressures and waveforms obtained in the legs at rest. Study Quality: This study is of adequate technical quality. Lt Leg: Arterial doppler waveforms of the left Popliteal Art are monophasic. Arterial doppler waveforms of the left WINDOWS DEPLOYMENT TECHNICIAN are absent. Arterial doppler waveforms of the left DPA are absent. MARTY: Rt ankle brachial index is 1.5. Left ankle brachial index is 0.0 (normal greater than 0.90). Arterial doppler waveforms of the right WINDOWS DEPLOYMENT TECHNICIAN are monophasic. Arterial doppler waveforms of the right DPA are biphasic. Arterial doppler waveforms of the left WINDOWS DEPLOYMENT TECHNICIAN are absent. Arterial doppler waveforms of the left DPA are absent. ++++++++++++++++++++++++++++++++++++ MEASUREMENTS: ++++++++++++++++++++++++++++++++++++ PRESSURES Left Ankle DP AnkleDP P 0 mmHg Left Ankle PT AnklePT P 0 mmHg Right MARTY (DP) MARTY (DP) 1.5 Right MARTY (PT) MARTY (PT) 1.5 Right Ankle DP AnkleDP P 209 mmHg Right Ankle PT AnklePT P 210 mmHg Right Brachial Brach P 137 mmHg Signed 04/05/2023 03:39 PM Juan A Bassett MD Juan A Bassett MD VASCULAR LAB ORDERAB LES * VAS DIALYSIS EXIST ACCESS SCAN (01/27/2019 10:17 AM CDT) Only the most recent of3 resultswithin the time period is included. Anatomical Region Laterality Modality Ultrasound 01/27/2019 9:59 AM CDT Narrative Procedure Note Dank George MD - 01/27/2019 [facility] [place] [address], [address] [place] [address] Hemodialysis Graft Report Pat.Name: BRANDIE MORRISSEY JR Pat.ID: [id number] .Date: 01/27/2019 Exam Time: 9:59:00 AM Study Type:Hemodialysis Graft Age: 7 1945,73Y Sex: MALE Sonogrphr: Ishmael Terrazas RVT Pat. Stat.:Outpatient ICD - 9: N18.6 End stage renal disease CPT - 4: 08070 Procedures: Vessel Mapping for Hemodialysis Race: 2 Visit ID: [id number] ++++++++++++++++++++++++++++++++++++ SUMMARY: ++++++++++++++++++++++++++++++++++++ Patent left upper AV fistula. ++++++++++++++++++++++++++++++++++++ FINDINGS: ++++++++++++++++++++++++++++++++++++ Procedure: B-mode imaging, color flow Doppler and spectral analysis were used to evaluate the AV fistula in the upper arm of the left upper extremity. Study Quality: This study is of adequate technical quality. Lt Arm: There is patent AV fistula involving the Lt cephalic vein and the brachial artery. The average diameter measured 12.0 mm proximally, 8.2 mm mid, and 8.0 mm distally. Signed 01/27/2019 02:55 PM Dank George MD Dank George MD VASCULAR LAB ORDER JENNIFER * VAS MAPPING FOR HEMODIALYSIS (06/03/2018 12:12 PM CDT) Anatomical Region Laterality Modality Ultrasound 06/03/2018 12:0 5 PM CDT Narrative Procedure Note Dank George MD - 06/03/2018 [facility] [place] [facility] [address] [address], [address] [place] [address] Vessel Mapping for Hemodialysis Report Pat.Name: BRANDIE MORRISSEY Pat.ID: [id number] St.Date: 06/03/2018 Exam Time: 12:05:00 PM Study Type:Vessel Mapping for Hemodialysis Age: 7 1945,73Y Sex: MALE Sonogrphr: Ishmael Terrazas RVT Pat. Stat.:Outpatient ICD - 9: N18.6 End stage renal disease CPT - 4: G0365 Procedures:Vessel Mapping for Hemodialysis Race: 2 Visit ID: [id number] ++++++++++++++++++++++++++++++++++++ SUMMARY: ++++++++++++++++++++++++++++++++++++ The cephalic and basilic vein is adequate for access in both upper arms. ++++++++++++++++++++++++++++++++++++ FINDINGS: ++++++++++++++++++++++++++++++++++++ Procedure: Duplex vein mapping was carried out in both upper extremities. Study Quality: This study is of adequate technical quality. Mapping Rt: The right cephalic vein is patent and compressible. The right basilic vein is patent and compressible. The right cephalic vein measured .51 cm at the antecubital fossa and .4 cm in the upper arm. The right basilic vein measured .5 cm at the antecubital fossa. Mapping Lt: The left cephalic vein is patent and compressible. The left basilic vein is patent and compressible. The left cephalic vein measured .64 cm at the antecubital fossa and .45 cm in the upper arm. The left basilic vein measured .4 cm at the antecubital fossa. 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 Signed 06/03/2018 01:58 PM Dank George MD Dank George MD VASCULAR LAB ORDER JENNIFER Care Teams Digital Forensics Investigator Relationship Specialty Start Date End Date Mariza Carrion MD [address] [place] [address] PCP - General Family Medicine 08/26/18
--- OUTSIDE RECORDS SUMMARY | 2024-12-09 07:49 | XMS_ITS | Clinical Summary ---
Author Organization [facility] Address [address] [place] [id number] Phone Care Team Providers Care Nurse Ob Name Role Phone Mariza Carrion MD Primary Care Provider Allergies No known active allergies Medications Medication Sig Dispensed Refills Start Date End Date Status insulin lispro (HUMALOG) 100 UNIT/ML injection as dir 0 11/12/2017 Active Ferrous Sulfate 27 MG tablet 1 daily 0 11/28/2017 Active fenofibrate (TRICOR) 145 MG tablet 1 daily 0 11/28/2017 Active aspirin (ASPIR-LOW) 81 MG EC tablet 1 daily 0 11/12/2017 Active latanoprost (XALATAN) 0.005 % ophthalmic solution as dir 0 11/28/2017 Activ e metOLazone (ZAROXOLYN) 5 MG tablet 1 daily 4 09/04/2018 Active Cholecalciferol (VITAMIN D3) 5000 units capsule 1 daily 0 11/28/2017 Active Dulaglutide (TRULICITY) 0.75 MG/0.5ML solution pen-injector 0.75 daily 0 11/12/2017 Active pantoprazole (PROTONIX) 40 MG injection 1 bid 4 09/04/2018 Active carvedilol (COREG) 25 MG tablet 1 bid 0 11/12/2017 Active clopidogrel (PLAVIX) 75 MG tablet 1 dakly 0 11/12/2017 Active oseltamivir (TAMIFLU) 30 MG capsule 1 daily for 5 days 0 11/28/2017 Active insulin glargine (LANTUS) 100 UNIT/ML injection as dir 0 11/12/2017 Active ergocalciferol (VITAMIN D-2) 05714 units capsule Take 1 capsule (50,000 Units total) by mouth 2 (two) times a week. 28 capsule 3 03/27/2019 Active hydrALAZINE (APRESOLINE) 100 MG tablet TAKE 1 TABLET TWICE A DAY 180 tablet 4 04/30/2019 Active aspirin 81 MG chewable tablet one p.o. qd 05/23/2012 Active ergocalciferol (VITAMIN D-2) 93388 units capsule one p.o. capsule once a month 0 11/11/2013 Active amLODIPine-benazepri l (LOTREL) 10-40 MG per capsule one p.o. qd 05/23/2012 Active metOLazone (ZAROXOLYN) 5 MG tablet 1Tab BID 2 11/11/2013 Active cloNIDine (CATAPRES) 0.1 MG tablet bid 10/17/2012 Active atenolol (TENORMIN) 100 MG tablet one p.o. qd 05/23/2012 Active fenofibrate (TRICOR) 145 MG tablet qd 11/11/2013 Active insulin glargine (LANTUS) 100 UNIT/ML injection 50 un qd 10/17/2012 Active furosemide (LASIX) 40 MG tablet 1 bid 3 11/11/2013 Active cetirizine (ZyrTEC ALLERGY) 10 MG tablet qd 10/17/2012 Active atorvastatin (LIPITOR) 20 MG tablet Take 1 tablet (20 mg total) by mouth 1 (one) time each day 30 tablet 11 09/20/2021 Active sevelamer (RENAGEL) 800 MG tablet Take 3 w meals three times a day and 2 w snacks twice a day. Swallow tablet whole; do not crush, break, or chew. 390 tablet 11 11/16/2021 Active Active Problems Problem Noted Date Diagnosed Date Stage 5 chronic kidney disease 10/01/2017 Vitamin D deficiency 07/02/2012 Type 2 diabetes mellitus without complication Essential (primary) hypertension 05/22/2012 Chronic kidney disease, stage 3 (moderate) 05/22 Other and unspecified hyperlipidemia 05/22/2012 Overview (05/23/2019): Converted unresolved ICD9, potential mismatch. Edema 05/22/2012 Overview (05/23/2019): Converted unresolved ICD9, potential mismatch. Proteinuria 05/22/2012 Overview (05/23/2019): Converted unresolved ICD9, potential mismatch. Immunizations Name Administration Dates Next Due Pneumococcal Conjugate 13-Valent 2012 Family History Medical History Relation Comments Kidney disease Neg Hx Social History Tobacco Use Types Packs/Day Years Used Date Smoking Tobacco: Former Cigarettes Q uit: 10/22/2006 Smokeless Tobacco: Never Alcohol Use Standard Drinks/Week Comments Yes 0 (1 standard drink = 0.6 oz pur e alcohol) Alcoholic Drinks/day: socially Sex and Gender Information Value Date Recorded Sex Assigned at Not on file Gender Identity Not on file Sexual Orientation Not on file Last Filed Vital Signs Vital Sign Reading Time Taken Comments Blood Pressure 128/70 03/19/2019 9:51 AM CDT Pulse 84 03/19/2019 9:51 AM CDT Temperature 36.4 C (97.6 F) 03/19/2019 9:51 AM CDT Respiratory Rate - - Oxygen Saturation - - Inhaled Oxygen Concentration - - Weight 103 kg (228 lb) 03/19/2019 9:51 AM CDT Height 170.2 cm (5' 7 ) 03/19/2019 9:51 AM CDT Body Mass Index 35.71 03/19/2019 9:51 AM CDT Plan of Treatment Health Maintenance Due Date Last Done Comments Pneumococcal PPSV23/PCV13 65 + Years / Low and Medium Risk (2 of 3 - PPSV23 or PCV20) 2013 2012 Influenza Vaccine (#1) 2024 Care Teams Nurse Ob Relationship Specialty Start Date End Date Mariza Carrion MD [address] [place] [address] PCP - General Internal Medicine 01/06/19
--- OUTSIDE RECORDS SUMMARY | 2024-12-09 07:49 | XMS_ITS | Encounter Summary ---
Author Organization [facility] Healthcare Address [address] [place] [address] Care Team Providers Care Case Checker Name Role Phone Efren Hoyos MD Unavailable Dank Hicks MD Unavailable [phone] Mariza Carrion MD Primary Care Provider Reason for Visit * Reason Onset Date Comments [facility] 11/25/2024 Encounter Details Date Type Department Care Team (Late st Contact Info) Description 11/25/2024 Telephone [facility] Medical Group Diabetes and Endocrinology [address] [place] [id number] [place] [address] [facility] [address] [place] [address] [place] Social History Tobacco Use Types Packs/Day Years Used Date Smoking Tobacco: Former Cigarettes Smokeless Tobacco: Never Alcohol Use Standard Drinks/Week Comments Yes 0 (1 standard drink = 0.6 oz pur e alcohol) [facility] Utilities Answer Date Recorded In the past 12 months has [employer], gas, oil, or water company threatened to shut off services in your [...] week 10/23/2024 How often do you attend chur ch or mosque services? Never 10/23/2024 Do you belong to any clubs o r organizations such as anabaptist groups, unions, fraternal or athletic groups, or [...] any time in the past [address] [facility], were you homeless or living in a chcf (including now)? No 10/23/2024 Personal Safety Answer Date Recorded Have you ever been in or are you currently in a harmful physical or emotional relationship or is someone making you feel afraid or unsafe? 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 UNICATIONS EQUIPMENT OPERATOR * Telephone Encounter - Buzz Barnard - 12/08/2024 1:10 PM CST Follow Up Reason: The office received a call from [place] with [employer] stating that the patient received a FSL 2 [place] from [employer] and wouldn't be able to get the FSL 3 [place]. She also said that this information was sent via [employer] to the office. Madison [phone] ext [phone] UNICATIONS EQUIPMENT OPERATOR * Telephone Encounter - Sydni Langston MA - 11/25/2024 7:27 AM CST Order for Freestyle Ross 3 submitted to [employer] along with most recent office note through [facility]. UNICATIONS EQUIPMENT OPERATOR documented in this encounter Plan of Treatment Not on file documented as of this encounter Visit Diagnoses Not on filedocumented in this encounter Care Teams Case Checker Relationship Specialty Start Date End Date Mariza Carrion MD [address] [facility] [address] [place] [address] PCP - General Family Practice 03/05/23 Efren Hoyos MD Referring Physician Ophthalmology 06/16/19 Dank Hicks MD [address] [address] Consulting Physician Cardiology 10/11/21 documented as of this encounter
--- OUTSIDE RECORDS SUMMARY | 2024-12-09 07:50 | XMS_ITS | Clinical Summary ---
Author Organization [facility] Address [address] [place] [phone] Care Team Providers Care Highway Maintenance Crew Worker Name Role Phone Efren Hoyos MD Unavailable Dank Hicks MD Unavailable [phone] Mariza Carrion MD Primary Care Provider Allergies No known active allergies Medications blood-glucose [...] current use of insulin (HCC) Use to test glucose 5 times daily 450 each 2 04/03/20 18 Active lancets (freestyle) 28 gauge miscIndications:T ype 2 diabetes mellitus with hyperglycemia, with long-term current use of insulin (HCC) Use to test glucose 5 times daily [...] hyperglycemia, with long-term current use of insulin ([facility]) Change sensor every 14 days 9 kit [...] hyperglycemia, with long-term current use of insulin ([facility]) Use pads 5 times daily 200 each [...] hyperglycemia, with long-term current use of insulin ([facility]) Use to inject insulin 4x/day 350 each [...] hyperglycemia, with long-term current use of insulin ([facility]) Use to inject insulin 4x/day 350 each [...] Dx; Symptomatic Bradycardia, Sinus Arrest, Syncope. DOI 10/24/2024-Ramadan. Patricia. Luis Carlos remote. Glaucoma 10/23/2024 Benign prostatic hyperplasia without lower urinary tract symptoms 10/23/2024 Asystole ([facility]) 10/23/2024 Syncope and collapse 10/22/2024 ESRD on hemodialysis ([facility]) 12/09/2019 Assessment & Plan (09/03/2023 9:28 AM GAS ATTENDANT): Chronic problem. [facility] [place]: //Saturdays. LUE fistula. Assessment & Plan (03/05/2023 9:59 AM CDT): Chronic problem. [facility] [place]: //Saturdays. LUE fistula. ESRD on dialysis 05/22/2019 Hyperlipidemia associated with type 2 diabetes fouzia victoria 05/22/2019 Assessment & Plan (11/24/2024 10:10 AM GAS ATTENDANT): Chronic problem. Controlled on current Atorvastatin 20mg. Last lipid panel: 03/03/24 LDL=33, TG=75. Assessment & Plan (03/03/2024 8:45 AM CDT): Chronic problem. Controlled on current Atorvastatin 20mg. Last lipid panel: 03/05/23 LDL=57, AY=086. Will update labs today. Does not mychart. Verified phone #/address to contact re: results. Assessment & Plan (09/03/2023 9:28 AM GAS ATTENDANT): Chronic problem. Controlled on current Atorvastatin 20mg. Last lipid panel: 03/05/23 LDL=57, UW=130. Assessment & Plan (03/05/2023 9:53 AM CDT): Chronic problem. Controlled on current Atorvastatin 20mg. Last lipid panel: 12/05/21 LDL=36, YO=643. Will update labs today. Verified phone #/address to contact re: results. Assessment & Plan (11/02/2022 2:47 PM GAS ATTENDANT): Chronic, well controlled Low fat Low cholesterol [...] Lipitor Assessment & Plan (09/07/2020 2:26 PM GAS ATTENDANT): Goal of treatment , LDL cholesterol less [...] panel Assessment & Plan (12/09/2019 2:03 PM GAS ATTENDANT): Very high TG Add Vascepa Assessment & Plan (05/22/2019 1:47 PM CDT): [...] statin therapy Coronary artery disease invo lving resighini coronary artery of resighini heart without angina pectoris 10/04/2017 Hx of CABG 10/04/2017 Class 2 severe obesity due t o excess calories with serious comorbidity and body mass index (BMI) of 38.0 to 38.9 in adult 05/22/2017 Assessment & Plan (10/24/2018 12:58 PM GAS ATTENDANT): Making progress with diet efforts. Continue Assessment & Plan (02/08/2018 11:01 AM CDT): Importance of following diet and exercising discussed. Hypertension associated with diabetes 05/22/2017 Assessment & Plan (11/24/2024 10:11 AM GAS ATTENDANT): Chronic problem. Controlled on current losartan 100mg daily, amlodipine 10mg daily Assessment & Plan (03/03/2024 8:45 AM CDT): Chronic problem. BP elevated upon arrival. Controlled on current Carvedilol 25mg bid, losartan 100mg daily. No changes at this time. Will update labs today. Does not mychart. Verified phone #/address to contact re: results. Assessment & Plan (09/03/2023 9:28 AM GAS ATTENDANT): Chronic problem. BP elevated upon arrival. Controlled [...] renal Assessment & Plan (10/24/2018 12:57 PM GAS ATTENDANT): Controlled. Continue current medication plan and follow up with cardiology Assessment & Plan (06/18/2018 2:30 PM CDT): BP controlled on current medication plan. Continue follow up with nephrology Assessment & Plan (02/08/2018 11:00 AM CDT): Continue same medication Assessment & Plan (12/11/2017 10:24 AM GAS ATTENDANT): Goal blood pressure is less than 140/85 [...] mellitus Assessment & Plan (11/24/2024 10:16 AM GAS ATTENDANT): Chronic problem, controlled on current regimen. A1c [...] daily for skin breakdown and infection (sees braiding operator regularly). Assessment & Plan (03/03/2024 9:19 AM [...] daily for skin breakdown and infection (sees braiding operator regularly). Assessment & Plan (09/03/2023 9:27 AM GAS ATTENDANT): Chronic problem, controlled on current regimen. A1c [...] daily for skin breakdown and infection (sees braiding operator regularly). Assessment & Plan (03/05/2023 10:13 AM CDT): Chronic problem, controlled on current regimen. Current medications: Trulicity 1.5mg weekly Lantus 6 units every morning Humalog 4 units before meals For sugars over 160: take 6 units For sugars over 200: take 8 units Seen by Retina Darien every 4-5 mos; letter sent to get [...] daily for skin breakdown and infection (sees braiding operator regularly). Will update labs today. Verified phone #/address to contact re: results. Assessment & Plan (11/02/2022 2:43 PM GAS ATTENDANT): Well controlled, with risk of hypoglycemia Insuli [...] 200, take 8 units Start CGM with [employer]er Modeyle Ross Assessment & Plan (02/03/2021 2:59 PM [...] Ross Assessment & Plan (09/07/2020 2:26 PM GAS ATTENDANT): Hba1c was Lab Results Component Value Date [...] Trulicity. Assessment & Plan (12/09/2019 2:03 PM GAS ATTENDANT): Your Hba1c today was: Lab Results Component Value Date HGBA1C 9.3 12/09/2019 meaning a 3 month average sugar of : 224 Your goal hba1c is under 7.0 to prevent moth exterminator diabetes complications ( eye , kidney and [...] hypoglycemia. Assessment & Plan (10/24/2018 1:00 PM GAS ATTENDANT): Stable BG pattern 100-140 reported since last adjustment to plan. No change today. BG goals reviewed. Advised to lower Lantus by 2 units if FBG are < 100 x 2 days/wk. For planned activity, reduce Humalog dose by 1/2 at preceding meal. Assessment & Plan (09/19/2018 11:11 AM GAS ATTENDANT): Your Hba1c today was: Lab Results Component Value Date HGBA1C 5.1 09/19/2018 meaning a 3 month average sugar of : 81 Your goal hba1c is under 7.0 to prevent residential diabetes complications ( eye , kidney and [...] time. Assessment & Plan (12/11/2017 10:47 AM GAS ATTENDANT): Hba1c was .5.4 Today, 1800 calorie, consistent [...] Lantus by 5 more unit. Stay on Trulicity Assessment & Plan (05/22/2017 11:37 AM CDT): [...] Diabetic retinopathy Atherosclerosis of coronary artery 02/02/2014 Resolved Problems Problem Noted Date Diagnosed Date Resolved Date Controlled type 2 diabetes fouzia victoria, without long-term current use of insulin 10/23/2024 025 Dyslipidemia associated with type 2 diabetes mellitus 10/23/2024 11/24/2024 Hypoglycemia 09/19/2018 05/22/2019 Assessment & Plan (09/19/2018 11:20 AM GAS ATTENDANT): Prevention and treatment of hypoglycemia were discussed Pa has glucagon emergency kit at home and family knows how to use it. BMI 40.0-44.9, adult 05/22/2017 023 Assessment & Plan (06/18/2018 2:28 PM CDT): Increase exercise. Discussed better breakfast options than high carb high fat. Mixed hyperlipidemia 05/22/2017 023 Assessment & Plan (02/20/2019 4:52 PM CDT): Continue statin therapy Assessment & Plan (10/24/2018 12:57 PM GAS ATTENDANT): Check lipid panel Assessment & Plan (06/18/2018 2:31 PM CDT): Continue statin therapy Assessment & Plan (02/08/2018 11:00 AM CDT): Continue atorvastatin Assessment & Plan (12/11/2017 10:45 AM GAS ATTENDANT): Goal of treatment , LDL cholesterol less [...] diet was discussed and advised. Daily exercise Start Lipitor \ Assessment & Plan (05/22/2017 11:31 AM CDT): Goal of treatment , LDL cholesterol less than 100 ( less than 70 in patients with history of heart attacks and / or strokes ) NonHDL cholesterol goal less than 130 / 100 Lipids at goal. Continue statin therapy Low cholesterol diet, exercise advised. Chronic kidney disease, stage III (moderate) 4 01/05/2022 Overview (01/26/2017): CKD stage 3 Encounters Date Type Department Care Team Description 11/25/2024 Telephone [facility] Diabetes and Endocrinology [address] [place] [phone] Bertha Pinto NP [place] 11/25/2024 Telephone [facility] Diabetes and Endocrinology [address] [place] [phone] Bertha Pinto NP Med Management (Humalog ) 11/24/2024 11:00 AM GAS ATTENDANT Office Visit [facility] Diabetes and Endocrinology [address] [place] [phone] Bertha Pinto NP Type 2 diabetes mellitus with hyperglycemia, with long-term current use of insulin (CMS/HCC) (Primary Dx); Hypertension associated with diabetes (HCC); Hyperlipidemia associated with type 2 diabetes mellitus (HCC) 11/05/2024 1:30 PM GAS ATTENDANT Ancillary Procedure [facility] Cardiology [address] [place] [phone] Cardiac pacemaker in situ; Asystole (CMS/HCC) (HCC); Syncope and collapse; Symptomatic bradycardia 11/04/2024 Orders Only [facility] Cardiology [address] [facility] [address] [place] [phone] Dank Hicks MD Cardiac pacemaker in situ (Primary Dx); Asystole (CMS/HCC) (HCC); Syncope and collapse; Symptomatic bradycardia 10/24/2024 12:58 PM GAS ATTENDANT Anesthesia Event [facility] [id number] [place] [id number] Bahman Arrington MD Sheehan, Whitney Elise, EXECUTIVE BUSINESS COACH 10/24/2024 12:30 PM GAS ATTENDANT - 10/24/2024 2:30 PM GAS ATTENDANT Surgery [facility] [address] [place], [place] [id number] Ramadan, Darien P. Jr., MD LEADLESS, SINGLE CHAMBER PACEMAKER (PPM) INSERTION 10/23/[address] [facility] [address] [place] [address] Darien Jamil Jr., MD Syncope and collapse (Primary Dx) 10/22/2024 8:28 PM GAS ATTENDANT - 10/25/2024 3:09 PM GAS ATTENDANT Hospital Encounter [facility] [id number] [place] [phone] Guru Miller MD Brother, Michele A., MD Durante, Mitchell Joseph, Syncope and collapse [R55] (Primary Dx); ESRD on dialysis (HCC) [N18.6, Z99.2]; 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, without long-term current use of insulin (CMS/HCC) ([facility]) [E11.22, N18.6, Z99.2]; Syncope and collapse; Type 2 diabetes mellitus with hyperglycemia, with long-term current use of insulin ([facility]) [E11.65, Z79.4]; Asystole (CMS/HCC) ([facility]) [I46.9] Discharge Disposition: Discharge to home or self care from Last 3 Months Surgical History Surgery Date Site/Laterality Comments OTHER SURGICAL HISTORY Coronary artery disease: CABG Medical History Medical History Date Comments Chronic coronary artery disease Coronary artery disease Type 2 diabetes mellitus (HCC) D iabetes type 2 Hypertension Hypertension Hx Other Medical Chronic renal i mpairment Chronic kidney disease, stage III (moderate) (HC C) 03/13/2014 CKD stage 3 Family History Medical History Relation Name Comments Diabetes type II Other Family hist ory of Diabetes mellitus type 2; Relation Name Status Comments Other Social History Tobacco Use Types Packs/Day Years Used Date Smoking Tobacco: Former Cigarettes Smokeless Tobacco: Never Tobacco Cessation:Counseling Given: Not Answered Alcohol Use Standard Drinks/Week Comments Yes 0 (1 standard drink = 0.6 oz pur e alcohol) [facility] Utilities Answer Date Recorded In the past 12 months has e [employer], gas, oil, or water [employer] threatened to shut off services in your [...] often do you attend chur ch or episcopal services? Never 10/23/2024 Do you belong to any clubs o r organizations such as yazidi groups, unions, fraternal or athletic groups, or [...] any time in the past 12 [facility], were you homeless or living in a half-way (including now)? No 10/23/2024 Personal Safety Answer Date Recorded Have you ever been in or are you currently in a harmful physical or emotional relationship or is someone making you feel afraid or unsafe? Denies 10/22/2024 Sex and Gender Information Value Date Recorded Sex Assigned at Not on file Legal Sex Male 7:27 PM GAS ATTENDANT Gender Identity Not on file Sexual Orientation Not on file Obstetrics History Last Filed Vital Signs Vital Sign Reading Time Taken Comments Blood Pressure 102/58 11/24/2024 9:58 AM GAS ATTENDANT Pulse 75 11/24/2024 9:58 AM GAS ATTENDANT Temperature 36.3 C (97.3 F) 10/25/2024 2:15 PM GAS ATTENDANT Respiratory Rate 20 11/24/2024 9:58 AM GAS ATTENDANT Oxygen Saturation 100% 10/25/2024 1:15 PM GAS ATTENDANT Inhaled Oxygen Concentration - - Weight 91.3 kg (201 lb 4.5 oz) 10/22/2024 8:29 P M GAS ATTENDANT Height 170.2 cm (5' 7.01 ) 11/24/2024 9:58 AM CS T Body Mass Index 31.52 10/22/2024 8:29 PM GAS ATTENDANT Plan of Treatment Health Maintenance Due Date Last Done Comments DTaP/Tdap/Td Vaccine (1 - Tdap) 1956 Zoster Vaccine (1 of 2) 1997 Well Visit 65+ 2012 Depression Screening 11/02/2023 11/02/2022, 02/03/2021, 09/07/2020, Additional history exists Influenza Vaccine (#1) 2024 Foot Exam 03/03/2025 03/03/2024, 02/19, 11/02/2022, Additional history exists Lipid Panel 03/03/2025 03/03/2024, 02/19, 12/05/2021, Additional history exists Albumin Creatinine Ratio, Urine 03/10/2025 , 03/05/2023 Hemoglobin A1C 05/24/2025 11/24/2024, 02/19, 09/03/2023, Additional history exists Dilated Eye Exam 08/13/2025 08/13/2024, , 01/03/2023, Additional history exists Fall Risk Assessment 10/25/2025 10/25/2024 eGFR 10/25/2025 10/25/2024, 12/2024, 10/23/2024, Additional history exists Abdominal Aortic Aneurysm (A AA) Screen Completed 12/05/2021 Pneumococcal vaccine 65+ Completed 09/27/2023, 04/22 Hepatitis B Screening Completed 10/23/2024 Hepatitis C Screening Completed 10/23/2024, 022 Medical Devices Implanted Type [employer] Teacher Device Identifier Shelf Expiration Date Model / Serial / Lot Med[employer]onic Inc Micra 2 Av Synchronous Leadless Ventricular Pacemaker [id number] - [id number] - [id number] Implanted:Qty: 1 on 10/24/2024 by Darien Jamil Jr., MD at [facility] [employer] 02/16/2026 [id number] / [id number] / Procedures Procedure Name Priority Date/Time Associated Diagnosis Comments POCT GLUCOSE Routine 11/24/2024 10:01 AM GAS ATTENDANT Type 2 diabetes mellitus with hyperglycemia, with long-term current use of insulin (CMS/HCC) POCT HEMOGLOBIN A1C Routine 11/24/2024 1 0:01 AM GAS ATTENDANT Type 2 diabetes mellitus with hyperglycemia, with long-term current use of insulin (CMS/HCC) DEVICE CHECK - IN OFFICE Routine 11/05/2024 1:22 PM GAS ATTENDANT Cardiac pacemaker in situ Asystole (CMS/HCC) (HCC) Syncope and collapse Symptomatic bradycardia POCT GLUCOSE DEVICE Routine 10/25/2024 1 2:56 PM GAS ATTENDANT POCT GLUCOSE DEVICE Routine 10/25/2024 8 :10 AM GAS ATTENDANT POCT GLUCOSE DEVICE Routine 10/25/2024 7 :43 AM GAS ATTENDANT EGFR Routine 10/25/2024 5:48 AM GAS ATTENDANT BASIC METABOLIC PANEL Routine 10/25/2024 5:48 AM GAS ATTENDANT CBC WITHOUT DIFFERENTIAL Routine 10/25/2024 5:48 AM GAS ATTENDANT POCT GLUCOSE DEVICE Routine 10/25/2024 2 :25 AM GAS ATTENDANT POCT GLUCOSE DEVICE Routine 10/24/2024 8 :31 PM GAS ATTENDANT POCT GLUCOSE DEVICE Routine 10/24/2024 4 :33 PM GAS ATTENDANT POCT GLUCOSE DEVICE Routine 10/24/2024 2 :03 PM GAS ATTENDANT LEADLESS, SINGLE CHAMBER PACEMAKER (PPM) INSERTION Routine 10/24/2024 1:36 PM GAS ATTENDANT Syncope and collapse POCT GLUCOSE DEVICE Routine 10/24/2024 1 1:26 AM GAS ATTENDANT POCT GLUCOSE DEVICE Routine 10/24/2024 7 :30 AM GAS ATTENDANT TSH Routine 10/24/2024 5:12 AM GAS ATTENDANT EGFR Routine 10/24/2024 4:59 AM GAS ATTENDANT BASIC METABOLIC PANEL Routine 10/24/2024 4:59 AM GAS ATTENDANT CBC WITHOUT DIFFERENTIAL Routine 10/24/2024 4:59 AM GAS ATTENDANT POCT GLUCOSE DEVICE Routine 10/24/2024 2 :39 AM GAS ATTENDANT POCT GLUCOSE DEVICE Routine 10/23/2024 1 0:25 PM GAS ATTENDANT POCT GLUCOSE DEVICE Routine 10/23/2024 8 :04 PM GAS ATTENDANT POCT GLUCOSE DEVICE Routine 10/23/2024 5 :42 PM GAS ATTENDANT HEPATITIS B SURFACE ANTIBODY (IMMUNE STATUS) Routine 10/23/2024 2:45 PM GAS ATTENDANT HEPATITIS PANEL, ACUTE Routine 10/23/2024 2:45 PM GAS ATTENDANT POCT GLUCOSE DEVICE Routine 10/23/2024 1 2:57 PM GAS ATTENDANT HEMODIALYSIS Routine 10/23/2024 9:13 AM GAS ATTENDANT POCT GLUCOSE DEVICE Routine 10/23/2024 7 :47 AM GAS ATTENDANT EGFR Routine 10/23/2024 5:27 AM GAS ATTENDANT DIFFERENTIAL AUTO Routine 10/23/2024 5:2 7 AM GAS ATTENDANT MAGNESIUM Routine 10/23/2024 5:27 AM GAS ATTENDANT PHOSPHORUS Routine 10/23/2024 5:27 AM GAS ATTENDANT COMPREHENSIVE METABOLIC PANEL Routine 10/23/2024 5:27 AM GAS ATTENDANT CBC WITH AUTO DIFFERENTIAL Routine 10/23/2024 5:27 AM GAS ATTENDANT POCT GLUCOSE DEVICE Routine 10/23/2024 3 :04 AM GAS ATTENDANT POCT GLUCOSE DEVICE Routine 10/22/2024 1 0:42 PM GAS ATTENDANT POCT GLUCOSE DEVICE Routine 10/22/2024 8 :42 PM GAS ATTENDANT HM DIABETES EYE EXAM Routine 08/13/2024 9:40 [...] Read Routine (OP Routine) 12/05/2021 11:53 AM GAS ATTENDANT End stage renal disease (CMS/HCC) (HCC) from Last 3 Months or Most Recently Relevant to Health Maintenance Results * POCT hemoglobin A1c (11/24/2024 10:01 AM GAS ATTENDANT) Hemoglobin A1C, POC 4.9 4.0 - 5.6 % Blood 11/24/2024 10:0 1 AM GAS ATTENDANT Bertha Pinto NP POINT OF CARE TEST ORDERA BLES Final Result * (ABNORMAL) POCT glucose (11/24/2024 10:01 AM GAS ATTENDANT) Glucose Blood, POC 131 mg/dL Blood 11/24/2024 10:0 1 AM GAS ATTENDANT us Bertha Pinto NP POINT OF CARE TEST ORDERA BLES Final Result * DEVICE CHECK - IN OFFICE (11/05/2024 1:22 PM GAS ATTENDANT) Anatomical Region Laterality Modality Other Narrative 11/13/2024 2:43 PM GAS ATTENDANT Medtronic Micra AV2 Pacemaker. Dx; Symptomatic Bradycardia, Sinus Arrest, Syncope. DOI 10/24/2024-Ramadan. Patricia. [facility] remote. Supervising MD: Dr Harris. Patient [...] 6-8 weeks. [facility] remote. Yamel Cesar, RN us Dank Hicks MD [facility] CARDI[facility] SERVICES PROC EDURES Final Result * POCT glucose (10/25/2024 12:56 PM GAS ATTENDANT) Glucose, POC 74 70 - 199 mg/dL Blood 10/25/2024 12:5 6 PM GAS ATTENDANT 10/25/2024 12:56 PM GAS ATTENDANT Nabeel Paez DO LAB POCT ORDERABLES - DEVICE Final Result Performing Organization Address [facility] Co de Phone Number NIDIA COTE [address] [facility] [place] [address] * POCT glucose (10/25/2024 8:10 AM GAS ATTENDANT) Glucose, POC 100 70 - 199 mg/dL Blood 10/25/2024 8:10 AM GAS ATTENDANT 10/25/2024 8:10 AM GAS ATTENDANT [facility] POCT ORDERABLES - DEVICE Final Result Performing Organization Address [facility] de Phone Number NIDIA COTE [address] [facility] [place] [address] * POCT glucose (10/25/2024 7:43 AM GAS ATTENDANT) Glucose, POC 78 70 - 199 mg/dL Blood 10/25/2024 7:43 AM GAS ATTENDANT 10/25/2024 7:43 AM GAS ATTENDANT Nabeel Richard Philippe [facility] POCT ORDERABLES - DEVICE Final Result Performing Organization Address [facility] de Phone Number NIDIA COTE [address] [facility] [place] [address] * (ABNORMAL) eGFR (10/25/2024 5:48 AM GAS ATTENDANT) eGFR 9(L) >=60 mL/min/1. 73 m2 Comment: [...] Inclusion of Race in Diagnosing Kidney Disease, SN 2020). The CKD-EPI equation should not be used for patients with unstable renal function and has not been validated in children and those over 70. Current interpretive data was last reviewed 2021. Blood 10/25/2024 5:48 AM GAS ATTENDANT 10/25/2024 6:03 AM GAS ATTENDANT Riasa Scherer MUSIC WORKER LAB BLOOD ORDERABLES Jeaneth l Result Performing Organization Address [facility]/ZIP Co de Phone Number NIDIA COTE [address] [place] [address] * (ABNORMAL) CBC without differential (10/25/2024 5:48 AM GAS ATTENDANT) WBC 4.6 3.8 - 9.9 K/cumm Hgb 8.3(L) 13.0 - 17.5 g/dL [facility] CH Hct 28.1(L) 38.9 - 50.3 % [facility] CH Plt 187 150 - 400 K/cumm [facility] CH MPV 10.6 9.1 - 12.3 fL [facility] CH RBC 2.82(L) 4.30 - 5.80 M/cumm [facility] CH MCV 99.6(H) 81.3 - 96.4 fL [facility] CH MCH 29.4 27.1 - 33.3 pg [facility] CH MCHC 29.5(L) 32.3 - 35.7 g/dL [facility] RDW CV 16.3(H) 11.1 - 14.9 % [facility] CH RDW SD 60.4(H) 35.7 - 48.1 fL [facility] NRBC abs 0.00 0.00 - 0.01 K/cumm [facility] Blood 10/25/2024 5:48 AM GAS ATTENDANT 10/25/2024 6:03 AM GAS ATTENDANT Raisa Scherer NP LAB BLOOD ORDERABLES Jeaneth l Result Performing Organization Address City/[facility]/ZIP Co de Phone Number NIDIA COTE [address] [place] [employer] [address] * (ABNORMAL) Basic metabolic panel (10/25/2024 5:48 AM GAS ATTENDANT) Sodium 135 135 - 145 mmol/L Potassium, pl 4.3 3.3 - 4.9 mmol/L [facility] Chloride 93(L) 97 - 110 mmol/L [facility] CO2 27 22 - 32 mmol/L [facility] Anion gap 15 2 - 15 mmol/L [facility] BUN 30(H) 6 - 25 mg/dL [facility] Creatinine 5.94(H) 0.80 - 1.30 mg/dL [facility] Glucose 76 70 - 199 mg/dL [facility] Comment: Interpretive Data Fasting glucose >/= 126 [...] 2022. Calcium 8.8 8.5 - 10.3 mg/dL [facility] Blood 10/25/2024 5:48 AM GAS ATTENDANT 10/25/2024 6:03 AM GAS ATTENDANT Raisa Scherer MUSIC WORKER LAB BLOOD ORDERABLES Jeaneth l Result [facility] [address] Department [place] [address] * POCT glucose (10/25/2024 2:25 AM GAS ATTENDANT) Glucose, POC 81 70 - 199 mg/dL Blood 10/25/2024 2:25 AM GAS ATTENDANT 10/25/2024 2:25 AM GAS ATTENDANT Nabeel Paez DO LAB POCT ORDERABLES - DEVICE Final Result [facility] [address] [facility] [place] [address] * POCT glucose (10/24/2024 8:31 PM GAS ATTENDANT) Glucose, POC 120 70 - 199 mg/dL Blood 10/24/2024 8:31 PM GAS ATTENDANT 10/24/2024 8:31 PM GAS ATTENDANT Nabeel [facility] POCT ORDERABLES - DEVICE Final Result Performing Organization Address [facility] Co de Phone Number NIDIA COTE [address] [address] [facility] [place] [address] * POCT glucose (10/24/2024 4:33 PM GAS ATTENDANT) Glucose, POC 85 70 - 199 mg/dL Blood 10/24/2024 4:33 PM GAS ATTENDANT 10/24/2024 4:33 PM GAS ATTENDANT [facility] POCT ORDERABLES - DEVICE Final Result Performing Organization Address [facility] de Phone Number NIDIA COTE [address] [address] [facility] [place] [address] * POCT glucose (10/24/2024 2:03 PM GAS ATTENDANT) Glucose, POC 83 70 - 199 mg/dL Blood 10/24/2024 2:03 PM GAS ATTENDANT 10/24/2024 2:03 PM GAS ATTENDANT [facility]el [facility] POCT ORDERABLES - DEVICE Final Result Performing Organization Address [facility] Co de Phone Number NIDIA COTE [address] [address] [facility] [place] [address] * POCT glucose (10/24/2024 11:26 AM GAS ATTENDANT) Glucose, POC 85 70 - 199 mg/dL Blood 10/24/2024 11:2 6 AM GAS ATTENDANT 10/24/2024 11:26 AM GAS ATTENDANT Nabeel Richard Philippe [facility] POCT ORDERABLES - DEVICE Final Result Performing Organization Address [facility] Co de Phone Number NIDIA COTE [address] [address] [facility] [place] [address] * POCT glucose (10/24/2024 7:30 AM GAS ATTENDANT) Pathologist [facility] Glucose, POC 94 70 - 199 mg/dL Blood 10/24/2024 7:30 AM GAS ATTENDANT 10/24/2024 7:30 AM GAS ATTENDANT Nabeel Richard Philippe [facility] POCT ORDERABLES - DEVICE Final Result Performing Organization Address [facility] de Phone Number NIDIA COTE [address] [address] [facility] [place] [address] * TSH (10/24/2024 5:12 AM GAS ATTENDANT) [facility] Thyroid Stimulating Hormone 0.48 0.30 - 4.20 mcIUnit/mL Blood 10/24/2024 5:12 AM GAS ATTENDANT 10/24/2024 5:23 AM GAS ATTENDANT Sherrill Christianson MD LAB BLOOD ORDERABLES Final Result Performing Organization Address [facility] [place] [address] [address] Department [place] [address] * (ABNORMAL) eGFR (10/24/2024 4:59 AM GAS ATTENDANT) eGFR 13(L) >=60 mL/min/1. 73 m2 Comment: [...] of Race in Diagnosing Kidney Disease, JASN 202). The CKD-EPI equation should not be used for patients with unstable renal function and has not been validated in children and those over 70. Current interpretive data was last reviewed 2021. Blood 10/24/2024 4:59 AM GAS ATTENDANT 10/24/2024 5:23 AM GAS ATTENDANT Raisa Scherer NP LAB BLOOD ORDERABLES Jeaneth mari Result [facility] [address] [address] Department [place] [address] * (ABNORMAL) CBC without differential (10/24/2024 4:59 AM GAS ATTENDANT) WBC 5.1 3.8 - 9.9 K/cumm Hgb 8.9(L) 13.0 - 17.5 g/dL [facility] Hct 29.9(L) 38.9 - 50.3 % [facility] Plt 188 150 - 400 K/cumm [facility] MPV 10.2 9.1 - 12.3 fL [facility] RBC 2.93(L) 4.30 - 5.80 M/cumm [facility] MCV 102.0(H) 81.3 - 96.4 fL [facility] MCH 30.4 27.1 - 33.3 pg [facility] MCHC 29.8(L) 32.3 - 35.7 g/dL [facility] RDW CV 16.8(H) 11.1 - 14.9 % [facility] RDW SD 62.6(H) 35.7 - 48.1 fL [facility] NRBC abs 0.00 0.00 - 0.01 K/cumm [facility] Blood 10/24/2024 4:59 AM GAS ATTENDANT 10/24/2024 5:20 AM GAS ATTENDANT Raisa Scherer MUSIC WORKER LAB BLOOD ORDERABLES Jeaneth l Result NIDIA COTE [address] [address] Department [place] [address] * (ABNORMAL) Basic metabolic panel (10/24/2024 4:59 AM GAS ATTENDANT) Sodium 136 135 - 145 mmol/L Potassium, pl 4.2 3.3 - 4.9 mmol/L [facility] Chloride 94(L) 97 - 110 mmol/L [facility] CO2 31 22 - 32 mmol/L [facility] Anion gap 11 2 - 15 mmol/L [facility] BUN 20 6 - 25 mg/dL [facility] Creatinine 4.30(H) 0.80 - 1.30 mg/dL [facility] Glucose 80 70 - 199 mg/dL [facility] Comment: Interpretive Data Fasting glucose >/= [...] 2022. Calcium 9.1 8.5 - 10.3 mg/dL [facility] Blood 10/24/2024 4:59 AM GAS ATTENDANT 10/24/2024 5:20 AM GAS ATTENDANT Raisa Scherer MUSIC WORKER LAB BLOOD ORDERABLES Jeaneth l Result Performing Organization Address City/[facility]/ZIP Co de Phone Number NIDIA COTE [address] [address] Department [place] [address] * POCT glucose (10/24/2024 2:39 AM GAS ATTENDANT) Glucose, POC 123 70 - 199 mg/dL Blood 10/24/2024 2:39 AM GAS ATTENDANT 10/24/2024 2:39 AM GAS ATTENDANT Nabeel Paez LAB POCT ORDERABLES - DEVICE Final Result Performing Organization Address [facility] Co de Phone Number NIDIA COTE [address] [address] [facility] [place] [address] * POCT glucose (10/23/2024 10:25 PM GAS ATTENDANT) Glucose, POC 173 70 - 199 mg/dL Blood 10/23/2024 10:2 5 PM GAS ATTENDANT 10/23/2024 10:25 PM GAS ATTENDANT Nabeel Ramos Philippe [facility] POCT ORDERABLES - DEVICE Final Result Performing Organization Address [facility] Phone Number NIDIA COTE [address] [address] [facility] [place] [address] * POCT glucose (10/23/2024 8:04 PM GAS ATTENDANT) Glucose, POC 70 70 - 199 mg/dL Blood 10/23/2024 8:04 PM GAS ATTENDANT 10/23/2024 8:04 PM GAS ATTENDANT Nabeel Ramos Philippe [facility] POCT ORDERABLES - DEVICE Final Result Performing Organization Address [facility] de Phone Number NIDIA COTE [address] [address] [facility] [place] [address] * POCT glucose (10/23/2024 5:42 PM GAS ATTENDANT) Glucose, POC 90 70 - 199 mg/dL Blood 10/23/2024 5:42 PM GAS ATTENDANT 10/23/2024 5:42 PM GAS ATTENDANT Nabeel Paez LAB POCT ORDERABLES - DEVICE Final Result Performing Organization Address [facility] Co de Phone Number NIDIA [address] [address] [facility] [place] [address] * Hepatitis panel, acute Blood (10/23/2024 2:45 PM GAS ATTENDANT) Hep A IgM Nonreactive Nonreactive Comment: Interpretive Data: If Hep A IgM Ab is reported as Equivocal, a new sample should be drawn in two weeks for testing. Current interpretive data was last revised on 20. Hep B core IgM Nonreactive Nonreactive [facility] Comment: Interpretive Data If HepB Core IgM Ab is reported as Equivocal, a new sample should be drawn in two weeks for testing. Current interpretive data was last revised on 20. Hep C Ab Nonreactive Nonreactive [facility] Comment: Interpretive Data Nonreactive: Antibodies to HCV [...] last revised on 2020. HepBsAg Nonreactive Nonreactive [facility] Blood 10/23/2024 2:45 PM GAS ATTENDANT 10/23/2024 2:46 PM GAS ATTENDANT Sherrill Christianson MD LAB MICROBIOLOGY - GENERAL ORDERABLES Final Result NIDIA [address] [address] Department [place] [address] * Hepatitis B surface antibody (immune status) Blood (10/23/2024 2:45 PM GAS ATTENDANT) Pathologist [facility] HBsAb (immune status) Nonreactive Comment: Interpretive Data [...] revised on 20. Blood 10/23/2024 2:45 PM GAS ATTENDANT 10/23/2024 2:46 PM GAS ATTENDANT Sherrill Christianson MD LAB MICROBIOLOGY - GENERAL ORDERABLES Final Result Performing Organization Address [facility] Co de Phone Number NIDIA COTE [address] [address] Department [place] [address] * (ABNORMAL) POCT glucose (10/23/2024 12:57 PM GAS ATTENDANT) Glucose, POC 69(L) 70 - 199 mg/dL Blood 10/23/2024 12:5 7 PM GAS ATTENDANT 10/23/2024 12:57 PM GAS ATTENDANT us Nabeel Paez DO LAB POCT ORDERABLES - DEVICE Final Result Performing Organization Address [facility] [place] [address] [address] [place] [address] * POCT glucose (10/23/2024 7:47 AM GAS ATTENDANT) Glucose, POC 81 70 - 199 mg/dL Blood 10/23/2024 7:47 AM GAS ATTENDANT 10/23/2024 7:47 AM GAS ATTENDANT Sylvester Engel MD LAB POCT ORDERABLES - SALO CE Final Result Performing Organization Address [facility] [place] [address] [address] Department [place] [address] * (ABNORMAL) eGFR (10/23/2024 5:27 AM GAS ATTENDANT) eGFR 11(L) >=60 mL/min/1. 73 m2 Comment: [...] of Race in Diagnosing Kidney Disease, JASN 202). The CKD-EPI equation should not be used for patients with unstable renal function and has not been validated in children and those over 70. Current interpretive data was last reviewed 2021. Blood 10/23/2024 5:27 AM GAS ATTENDANT 10/23/2024 5:32 AM GAS ATTENDANT us Raisa Scherer NP LAB BLOOD ORDERABLES Jeaneth mari Result NIDIA [address] [address] Department [place] [address] * (ABNORMAL) Differential, auto (10/23/2024 5:27 AM GAS ATTENDANT) Neutrophil abs 4.1 1.5 - 6.5 K/cumm Imm gran abs 0.1 0.0 - 0.1 K/cumm [facility] Lymphocyte abs 0.4(L) 0.8 - 3.3 K/cumm [facility] Monocyte abs 0.7 0.2 - 0.8 K/cumm [facility] Eosinophil abs 0.1 0.0 - 0.5 K/cumm [facility] Basophil abs 0.0 0.0 - 0.1 K/cumm [facility] Neutrophil pct 76.5 % NIDIA Comment: Interpretive Data Percent cell count reference ranges are not reported, since discordance with absolute values may lead to misinterpretation of CBC data. Current Interpretive Data was last revised on 2018. Imm gran pct 1.1 % NIDIA Comment: Interpretive Data Percent cell count reference ranges are not reported, since discordance with absolute values may lead to misinterpretation of CBC data. Current Interpretive Data was last revised on 2018. Lymphocyte pct 7.9 % NIDIA Comment: Interpretive Data Percent cell count reference ranges are not reported, since discordance with absolute values may lead to misinterpretation of CBC data. Current Interpretive Data was last revised on 2018. Monocyte pct 12.7 % [facility] Comment: Interpretive Data Percent cell count reference ranges are not reported, since discordance with absolute values may lead to misinterpretation of CBC data. Current Interpretive Data was last revised on 2018. Eosinophil pct 1.1 % [facility] Comment: Interpretive Data Percent cell count reference ranges are not reported, since discordance with absolute values may lead to misinterpretation of CBC data. Current Interpretive Data was last revised on 2018. Basophil pct 0.7 % [facility] Comment: Interpretive Data Percent cell count reference ranges are not reported, since discordance with absolute values may lead to misinterpretation of CBC data. Current Interpretive Data was last revised on 2018. Blood 10/23/2024 5:27 AM GAS ATTENDANT 10/23/2024 5:30 AM GAS ATTENDANT us Raisa Scherer MUSIC WORKER LAB BLOOD ORDERABLES Jeaneth mari Result [facility] [address] [address] Department [place] [address] * (ABNORMAL) CBC with auto differential (10/23/2024 5:27 AM GAS ATTENDANT) WBC 5.3 3.8 - 9.9 K/cumm Hgb 8.8(L) 13.0 - 17.5 g/dL [facility] Hct 28.9(L) 38.9 - 50.3 % [facility] Plt 179 150 - 400 K/cumm [facility] MPV 10.4 9.1 - 12.3 fL [facility] RBC 2.86(L) 4.30 - 5.80 M/cumm [facility] MCV 101.0(H) 81.3 - 96.4 fL [facility] MCH 30.8 27.1 - 33.3 pg [facility] MCHC 30.4(L) 32.3 - 35.7 g/dL [facility] RDW CV 17.2(H) 11.1 - 14.9 % [facility] RDW SD 63.7(H) 35.7 - 48.1 fL [facility] NRBC abs 0.00 0.00 - 0.01 K/cumm [facility] Blood 10/23/2024 5:27 AM GAS ATTENDANT 10/23/2024 5:30 AM GAS ATTENDANT Raisa Scherer MUSIC WORKER LAB BLOOD ORDERABLES Jeaneth l Result Performing Organization Address [facility] de Phone Number NIDIA [address] Dom[address] [facility] [place] [address] * Phosphorus (10/23/2024 5:27 AM GAS ATTENDANT) Pathologist [facility] Phosphorus, pl 4.5 2.3 - 4.5 mg/dL Blood 10/23/2024 5:27 AM GAS ATTENDANT 10/23/2024 5:30 AM GAS ATTENDANT Raisa Scherer NP LAB BLOOD ORDERABLES Jeaneth l Result Performing Organization Address [facility] de Phone Number NIDIA [address] Dom[address] [facility] [place] [address] * Magnesium (10/23/2024 5:27 AM GAS ATTENDANT) Pathologist [facility] Magnesium 2.1 1.4 - 2.5 mg/dL Blood 10/23/2024 5:27 AM GAS ATTENDANT 10/23/2024 5:30 AM GAS ATTENDANT Raisa Scherer MUSIC WORKER LAB BLOOD ORDERABLES Jeaneth l Result Performing Organization Address [facility] de Phone Number NIDIA [address] Dom[address] [facility] [place] [address] * (ABNORMAL) Comprehensive metabolic panel (10/23/2024 5:27 AM GAS ATTENDANT) Sodium 137 135 - 145 mmol/L Potassium, [...] Units/L [facility] Blood 10/23/2024 5:27 AM GAS ATTENDANT 10/23/2024 5:30 AM GAS ATTENDANT Raisa Scherer MUSIC WORKER LAB BLOOD ORDERABLES Jeaneth l Result Performing Organization Address City/[facility]/ZIP Co de Phone Number NIDIA [address] [address] Department [place] [address] * POCT glucose (10/23/2024 3:04 AM GAS ATTENDANT) [facility] Signature Glucose, POC 84 70 - 199 mg/dL Blood 10/23/2024 3:04 AM GAS ATTENDANT 10/23/2024 3:04 AM GAS ATTENDANT Sylvester Engel MD LAB POCT ORDERABLES - SALO CE Final Result Performing Organization Address City[facility]/ZIP Co de Phone Number NIDIA [address] R[address] [facility] [place] [address] * POCT glucose (10/22/2024 10:42 PM GAS ATTENDANT) Glucose, POC 101 70 - 199 mg/dL Blood 10/22/2024 10:4 2 PM GAS ATTENDANT 10/22/2024 10:42 PM GAS ATTENDANT Sylvester Engel MD LAB POCT ORDERABLES - SALO CE Final Result [facility] [address] [address] [facility] [place] [address] * POCT glucose (10/22/2024 8:42 PM GAS ATTENDANT) Glucose, POC 114 70 - 199 mg/dL Blood 10/22/2024 8:42 PM GAS ATTENDANT 10/22/2024 8:42 PM GAS ATTENDANT Guru Miller MD LAB POCT ORDERABLES - DEVICE Final Result Performing Organization Address [facility] Co de Phone Number [facility] [address] [place] [address] * (ABNORMAL) DIABETES EYE EXAM (08/13/2024 9:40 AM CDT) Historical Provider [facility] Edited Result - Final * (ABNORMAL) Albumin Creatinine Ratio, Urine (03/10/2024 8:46 AM CDT) Albumin Ur 3,169.5 mg/L Comment: Interpretive Data No reference range established. Current interpretive data was last revised 2019. Creatinine Ur 47.7 mg/dL NIDIA Comment: Interpretive Data No reference range established. Current interpretive data was last revised 2019. Albumin Creatinine Ratio, Ur 6,645(H) 1 - 29 mg/g NIDIA COTE Urine 03/10/2024 8:46 AM CDT 03/11/2024 9:11 AM CDT us Bertha Pinto NP LAB URINE ORDERABLES Jeaneth mari Result NIDIA COTE [address] [address] Department [place] [address] * (ABNORMAL) Lipid panel (03/03/2024 9:29 AM [...] revised on 2018. Triglycerides 75 <=149 mg/dL NIDIA COTE Comment: Interpretive Data Ages < or = [...] on 2018. HDL 37(L) >=40 mg/dL NIDIA COTE Comment: Interpretive Data Ages < or = [...] 2018. LDL, calculated 33 <=129 mg/dL NIDIA COTE Comment: Interpretive Data Ages < or = [...] on 2018. Non-HDL Cholesterol 48 mg/dL NIDIA COTE Comment: Interpretive Data Ages < or = [...] 03/03/2024 4:40 PM CDT us Bertha Pinto NP LAB BLOOD ORDERABLES Jeaneth l Result NIDIA COTE [address] [address] Department [place] [address] * CT Abdomen Pelvis WO Contrast (12/05/2021 11:53 AM GAS ATTENDANT) Anatomical Region Laterality Modality Body N/A Computed Tomogra phy 12/05/2021 12:0 4 PM GAS ATTENDANT Impressions 12/05/2021 12:04 PM GAS ATTENDANT Bone windows show no suspicious lytic or blastic lesions. IMPRESSION: 1. 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 2. 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 Electronically signed by: Polly Tucker 12/05/2021 12:04 PM GAS ATTENDANT EXAMINATION: Computed tomography of the abdomen/pelvis without [...] adeniform shape. 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 Adjacent fat stranding is likely related [...] adeniform shape. 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 Adjacent fat stranding is likely related [...] prostate. Electronically signed by: Ryan Cameron M.D. 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
--- OUTSIDE RECORDS SUMMARY | 2024-12-09 07:50 | XMS_ITS | Referral Summary ---
Author Organization [facility] Address [address] [place] [address] Care Team Providers Care Case Resource Manager Name Role Phone Efren Hoyos MD Unavailable Dank Hicks MD Unavailable [phone] Mariza Carrion MD Primary Care Provider Encounters Date Type Department Care Team Description 11/25/2024 Telephone [facility] Diabetes and Endocrinology [address] [place] [phone] Bertha Pinto NP [employer] 11/25/2024 Telephone [facility] Diabetes and Endocrinology [address] [place] [phone] Bertha Pinto NP Med Management (Humalog ) 11/24/2024 11:00 AM VP ANALYSIS Office Visit [facility] Diabetes and Endocrinology [address] [place] [phone] Bertha Pinto, JUAREZ Type 2 diabetes mellitus with hyperglycemia, with long-term current use of insulin (CMS/HCC) (Primary Dx); Hypertension associated with diabetes (HCC); Hyperlipidemia associated with type 2 diabetes mellitus (HCC) 11/05/2024 1:30 PM VP ANALYSIS Ancillary Procedure [facility] Cardiology [address] [place] [address] Cardiac pacemaker in situ; Asystole (CMS/HCC) (HCC); Syncope and collapse; Symptomatic bradycardia 11/04/[address] 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, without long-term current use of insulin (CMS/HCC) ([facility]) [E11.22, N18.6, Z99.2]; Syncope and collapse; Type 2 diabetes mellitus with hyperglycemia, with long-term current use of insulin ([facility]) [E11.65, Z79.4]; Asystole (CMS/HCC) ([facility]) [I46.9] Discharge Disposition: Discharge to home or self care 10/24/2024 12:58 PM VP ANALYSIS Anesthesia Event [facility] Cardiac Catheterization Lab [address] [place] [address] Bahman Arrington MD Sheehan, Whitney Elise, CRNA 10/24/2024 12:30 PM VP ANALYSIS - 10/24/2024 2:30 PM VP ANALYSIS Surgery [facility] Cardiac Catheterization Lab [address] [place] [address] Darien Jamil Jr., MD LEADLESS, SINGLE CHAMBER PACEMAKER (PPM) INSERTION 10/23/2024 Orders Only [facility] Cardiac Catheterization Lab [address] [place] [address] Darien Jamil Jr., MD Syncope and collapse (Primary Dx) from Last 3 Months Allergies No known active allergies Medications blood-glucose [...] hyperglycemia, with long-term current use of insulin ([facility]) Use to test glucose 5 times daily 450 each 2 04/03/20 18 Active lancets (freestyle) 28 gauge miscIndications:T ype 2 diabetes mellitus with hyperglycemia, with long-term current use of insulin ([facility]) Use to test glucose 5 times daily [...] hyperglycemia, with long-term current use of insulin ([facility]) Change sensor every 14 days 9 kit [...] on the skin daily as needed 05/01/20 Active patiromer calcium sorbitex (VELTASSA) packet Take [...] hyperglycemia, with long-term current use of insulin ([facility]) Use pads 5 times daily 200 each [...] hyperglycemia, with long-term current use of insulin ([facility]) Inject 0.5ML(1.5MG total) under the skin every [...] hyperglycemia, with long-term current use of insulin ([facility]) Use to inject insulin 4x/day 350 each [...] Arrest, Syncope. DOI 10/24/2024-Ramadan. Patricia. Carelink remote. Glaucoma 10/23/2024 Benign prostatic hyperplasia without lower urinary tract symptoms 10/23/2024 Asystole ([facility]) 10/23/2024 Syncope and collapse 10/22/2024 ESRD on hemodialysis ([facility]) 12/09/2019 Assessment & Plan (09/03/2023 9:28 AM VP ANALYSIS): Chronic problem. [facility] [place]: //Saturdays. LUE fistula. Assessment & Plan (03/05/2023 9:59 AM CDT): Chronic problem. [facility] in [place]: //Saturdays. LUE fistula. ESRD on dialysis 05/22/2019 Hyperlipidemia associated with type 2 diabetes fouzia victoria 05/22/2019 Assessment & Plan (11/24/2024 10:10 AM VP ANALYSIS): Chronic problem. Controlled on current Atorvastatin 20mg. Last lipid panel: 03/03/24 LDL=33, TG=75. Assessment & Plan (03/03/2024 8:45 AM CDT): Chronic problem. Controlled on current Atorvastatin 20mg. Last lipid panel: 03/05/23 LDL=57, TN=274. Will update labs today. Does not mychart. Verified phone #/address to contact re: results. Assessment & Plan (09/03/2023 9:28 AM VP ANALYSIS): Chronic problem. Controlled on current Atorvastatin 20mg. Last lipid panel: 03/05/23 LDL=57, QQ=496. Assessment & Plan (03/05/2023 9:53 AM CDT): Chronic problem. Controlled on current Atorvastatin 20mg. Last lipid panel: 12/05/21 LDL=36, JU=226. Will update labs today. Verified phone #/address to contact re: results. Assessment & Plan (11/02/2022 2:47 PM VP ANALYSIS): Chronic, well controlled Low fat Low cholesterol [...] Lipitor Assessment & Plan (09/07/2020 2:26 PM VP ANALYSIS): Goal of treatment , LDL cholesterol less [...] panel Assessment & Plan (12/09/2019 2:03 PM VP ANALYSIS): Very high TG Add Vascepa Assessment & [...] statin therapy Coronary artery disease invo lving [place] coronary artery of [place] heart without angina pectoris 10/04/2017 Hx of CABG 10/04/2017 Class 2 severe obesity due t o excess calories with serious comorbidity and body mass index (BMI) of 38.0 to 38.9 in adult 05/22/2017 Assessment & Plan (10/24/2018 12:58 PM VP ANALYSIS): Making progress with diet efforts. Continue Assessment & Plan (02/08/2018 11:01 AM CDT): Importance of following diet and exercising discussed. Hypertension associated with diabetes 05/22/2017 Assessment & Plan (11/24/2024 10:11 AM VP ANALYSIS): Chronic problem. Controlled on current losartan 100mg daily, amlodipine 10mg daily Assessment & Plan (03/03/2024 8:45 AM CDT): Chronic problem. BP elevated upon arrival. Controlled on current Carvedilol 25mg bid, losartan 100mg daily. No changes at this time. Will update labs today. Does not mychart. Verified phone #/address to contact re: results. Assessment & Plan (09/03/2023 9:28 AM VP ANALYSIS): Chronic problem. BP elevated upon arrival. Controlled [...] renal Assessment & Plan (10/24/2018 12:57 PM VP ANALYSIS): Controlled. Continue current medication plan and follow up with cardiology Assessment & Plan (06/18/2018 2:30 PM CDT): BP controlled on current medication plan. Continue follow up with nephrology Assessment & Plan (02/08/2018 11:00 AM CDT): Continue same medication Assessment & Plan (12/11/2017 10:24 AM VP ANALYSIS): Goal blood pressure is less than 140/85 [...] mellitus Assessment & Plan (11/24/2024 10:16 AM VP ANALYSIS): Chronic problem, controlled on current regimen. A1c [...] daily for skin breakdown and infection (sees customer solutions supervisor regularly). Assessment & Plan (03/03/2024 9:19 AM [...] daily for skin breakdown and infection (sees customer solutions supervisor regularly). Assessment & Plan (09/03/2023 9:27 AM VP ANALYSIS): Chronic problem, controlled on current regimen. A1c [...] daily for skin breakdown and infection (sees customer solutions supervisor regularly). Assessment & Plan (03/05/2023 10:13 AM CDT): Chronic problem, controlled on current regimen. Current medications: Trulicity 1.5mg weekly Lantus 6 units every morning Humalog 4 units before meals For sugars over 160: take 6 units For sugars over 200: take 8 units Seen by Retina Hayden every 4-5 mos; letter sent to get [...] daily for skin breakdown and infection (sees customer solutions supervisor regularly). Will update labs today. Verified phone #/address to contact re: results. Assessment & Plan (11/02/2022 2:43 PM VP ANALYSIS): Well controlled, with risk of hypoglycemia Insuli [...] Ross Assessment & Plan (09/07/2020 2:26 PM VP ANALYSIS): Hba1c was Lab Results Component Value Date [...] Trulicity. 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 Assessment & Plan (10/24/2018 1:00 PM VP ANALYSIS): Stable BG pattern 100-140 reported since last adjustment to plan. No change today. BG goals reviewed. Advised to lower Lantus by 2 units if FBG are < 100 x 2 days/wk. For planned activity, reduce Humalog dose by 1/2 at preceding meal. Assessment & Plan (09/19/2018 11:11 AM VP ANALYSIS): Your Hba1c today was: Lab Results Component [...] time. Assessment & Plan (12/11/2017 10:47 AM VP ANALYSIS): Hba1c was .5.4 Today, 1800 calorie, consistent [...] 05/22/2019 Assessment & Plan (09/19/2018 11:20 AM VP ANALYSIS): Prevention and treatment of hypoglycemia were discussed [...] therapy Assessment & Plan (10/24/2018 12:57 PM VP ANALYSIS): Check lipid panel Assessment & Plan (06/18/2018 2:31 PM CDT): Continue statin therapy Assessment & Plan (02/08/2018 11:00 AM CDT): Continue atorvastatin Assessment & Plan (12/11/2017 10:45 AM VP ANALYSIS): Goal of treatment , LDL cholesterol less [...] 4 01/05/2022 Overview (01/26/2017): CKD stage 3 Social History Tobacco Use Types Packs/Day Years Used Date Smoking Tobacco: Former Cigarettes Smokeless Tobacco: Never Tobacco Cessation:Counseling Given: Not Answered Alcohol Use Standard Drinks/Week Comments Yes 0 (1 standard drink = 0.6 oz pur e alcohol) [facility] [employer] Answer Date Recorded In the past 12 months has Business Engine, Status Overload, [employer], or water [employer] threatened to shut off services in your [...] often do you attend chur ch or congregational services? Never 10/23/2024 Do you belong to any clubs o r organizations such as anabaptism groups, unions, fraternal or athletic groups, or [...] any time in the past 12 m [facility], were you homeless or living in a skilled nursing (including now)? No 10/23/2024 Personal Safety Answer Date Recorded Have you ever been in or are you currently in a harmful physical or emotional relationship or is someone making you feel afraid or unsafe? Denies 10/22/2024 Sex and Gender Information Value Date Recorded Sex Assigned at Not on file Legal Sex Male 7:27 PM VP ANALYSIS Gender Identity Not on file Sexual Orientation Not on file Last Filed Vital Signs Vital Sign Reading Time Taken Comments Blood Pressure 102/58 11/24/2024 9:58 AM VP ANALYSIS Pulse 75 11/24/2024 9:58 AM VP ANALYSIS Temperature 36.3 C (97.3 F) 10/25/2024 2:15 PM VP ANALYSIS Respiratory Rate 20 11/24/2024 9:58 AM VP ANALYSIS Oxygen Saturation 100% 10/25/2024 1:15 PM VP ANALYSIS Inhaled Oxygen Concentration - - Weight 91.3 kg (201 lb 4.5 oz) 10/22/2024 8:29 P M VP ANALYSIS Height 170.2 cm (5' 7.01 ) 11/24/2024 9:58 AM CS T Body Mass Index 31.52 10/22/2024 8:29 PM VP ANALYSIS Plan of Treatment Not on file Medical Devices Implanted Type Area Physiology Teacher Device Identifier Shelf Expiration Date Model / Serial / Lot Med[employer]onic Inc Micra 2 Av Synchronous Leadless Ventricular Pacemaker [id number] - [id number] - [id number] Implanted:Qty: 1 on 10/24/2024 by Darien Jamil Jr., MD at [facility] Med[employer] 02/16/2026 [id number] / [id number] / Procedures Procedure Name Priority Date/Time Associated Diagnosis Comments POCT GLUCOSE Routine 11/24/2024 10:01 AM VP ANALYSIS Type 2 diabetes mellitus with hyperglycemia, with long-term current use of insulin ([facility]) POCT HEMOGLOBIN A1C Routine 11/24/2024 1 0:01 AM VP ANALYSIS Type 2 diabetes mellitus with hyperglycemia, with long-term current use of insulin ([facility]) DEVICE CHECK - IN OFFICE Routine 11/05/2024 1:22 PM VP ANALYSIS Cardiac pacemaker in situ Asystole (CMS/HCC) ([facility]) Syncope and collapse Symptomatic bradycardia POCT GLUCOSE DEVICE Routine 10/25/2024 1 2:56 PM VP ANALYSIS POCT GLUCOSE DEVICE Routine 10/25/2024 8 :10 AM VP ANALYSIS POCT GLUCOSE DEVICE Routine 10/25/2024 7 :43 AM VP ANALYSIS EGFR Routine 10/25/2024 5:48 AM VP ANALYSIS BASIC METABOLIC PANEL Routine 10/25/2024 5:48 AM VP ANALYSIS CBC WITHOUT DIFFERENTIAL Routine 10/25/2024 5:48 AM VP ANALYSIS POCT GLUCOSE DEVICE Routine 10/25/2024 2 :25 AM VP ANALYSIS POCT GLUCOSE DEVICE Routine 10/24/2024 8 :31 PM VP ANALYSIS POCT GLUCOSE DEVICE Routine 10/24/2024 4 :33 PM VP ANALYSIS POCT GLUCOSE DEVICE Routine 10/24/2024 2 :03 PM VP ANALYSIS LEADLESS, SINGLE CHAMBER PACEMAKER (PPM) INSERTION Routine 10/24/2024 1:36 PM VP ANALYSIS Syncope and collapse POCT GLUCOSE DEVICE Routine 10/24/2024 1 1:26 AM VP ANALYSIS POCT GLUCOSE DEVICE Routine 10/24/2024 7 :30 AM VP ANALYSIS TSH Routine 10/24/2024 5:12 AM VP ANALYSIS EGFR Routine 10/24/2024 4:59 AM VP ANALYSIS BASIC METABOLIC PANEL Routine 10/24/2024 4:59 AM VP ANALYSIS CBC WITHOUT DIFFERENTIAL Routine 10/24/2024 4:59 AM VP ANALYSIS POCT GLUCOSE DEVICE Routine 10/24/2024 2 :39 AM VP ANALYSIS POCT GLUCOSE DEVICE Routine 10/23/2024 1 0:25 PM VP ANALYSIS POCT GLUCOSE DEVICE Routine 10/23/2024 8 :04 PM VP ANALYSIS POCT GLUCOSE DEVICE Routine 10/23/2024 5 :42 PM VP ANALYSIS HEPATITIS B SURFACE ANTIBODY (IMMUNE STATUS) Routine 10/23/2024 2:45 PM VP ANALYSIS HEPATITIS PANEL, ACUTE Routine 10/23/2024 2:45 PM VP ANALYSIS POCT GLUCOSE DEVICE Routine 10/23/2024 1 2:57 PM VP ANALYSIS HEMODIALYSIS Routine 10/23/2024 9:13 AM VP ANALYSIS POCT GLUCOSE DEVICE Routine 10/23/2024 7 :47 AM VP ANALYSIS EGFR Routine 10/23/2024 5:27 AM VP ANALYSIS DIFFERENTIAL AUTO Routine 10/23/2024 5:2 7 AM VP ANALYSIS MAGNESIUM Routine 10/23/2024 5:27 AM VP ANALYSIS PHOSPHORUS Routine 10/23/2024 5:27 AM VP ANALYSIS COMPREHENSIVE METABOLIC PANEL Routine 10/23/2024 5:27 AM VP ANALYSIS CBC WITH AUTO DIFFERENTIAL Routine 10/23/2024 5:27 AM VP ANALYSIS POCT GLUCOSE DEVICE Routine 10/23/2024 3 :04 AM VP ANALYSIS POCT GLUCOSE DEVICE Routine 10/22/2024 1 0:42 PM VP ANALYSIS POCT GLUCOSE DEVICE Routine 10/22/2024 8 :42 PM VP ANALYSIS HM DIABETES EYE EXAM Routine 08/13/2024 9:40 [...] Read Routine (OP Routine) 12/05/2021 11:53 AM VP ANALYSIS End stage renal disease (CMS/HCC) (HCC) from Last 3 Months or Most Recently Relevant to Health Maintenance Results * POCT hemoglobin A1c (11/24/2024 10:01 AM VP ANALYSIS) Hemoglobin A1C, POC 4.9 4.0 - 5.6 % Blood 11/24/2024 10:0 1 AM VP ANALYSIS Berthageno Pinto GUNITE NOZZLE OPERATOR POINT OF CARE TEST ORDERA BLES Final Result * (ABNORMAL) POCT glucose (11/24/2024 10:01 AM VP ANALYSIS) Glucose Blood, POC 131 mg/dL Blood 11/24/2024 10:0 1 AM VP ANALYSIS Berthageno Pinto GUNITE NOZZLE OPERATOR POINT OF CARE TEST ORDERA BLES Final Result * DEVICE CHECK - IN OFFICE (11/05/2024 1:22 PM VP ANALYSIS) Anatomical Region Laterality Modality Other Narrative 11/13/2024 2:43 PM VP ANALYSIS Medtronic Micra AV2 Pacemaker. Dx; Symptomatic Bradycardia, [...] f/u 6-8 weeks. Carelink remote. Yamel Cesar, JIMMY Dank Hicks MD CV CARDIAC SERVICES PROC EDURES Final Result * POCT glucose (10/25/2024 12:56 PM VP ANALYSIS) Glucose, POC 74 70 - 199 mg/dL Blood 10/25/2024 12:5 6 PM VP ANALYSIS 10/25/2024 12:56 PM VP ANALYSIS Nabeel Richard Philippe LAB POCT ORDERABLES - DEVICE Final Result Performing Organization Address [facility] [[email or web address]] de Phone Number NIDIA COTE [address] [address] [facility] [place] [address] * POCT glucose (10/25/2024 8:10 AM VP ANALYSIS) Glucose, POC 100 70 - 199 mg/dL Blood 10/25/2024 8:10 AM VP ANALYSIS 10/25/2024 8:10 AM VP ANALYSIS Nabeel Richard Philippe [facility] POCT ORDERABLES - DEVICE Final Result Performing Organization Address [facility] de Phone Number NIDIA COTE [address] [address] [facility] [place] [address] * POCT glucose (10/25/2024 7:43 AM VP ANALYSIS) Glucose, POC 78 70 - 199 mg/dL Blood 10/25/2024 7:43 AM VP ANALYSIS 10/25/2024 7:43 AM VP ANALYSIS Nabeel Paez [facility] POCT ORDERABLES - DEVICE Final Result Performing Organization Address [email or web address]] de Phone Number NIDIA COTE [address] [place] [address] * (ABNORMAL) eGFR (10/25/2024 5:48 AM VP ANALYSIS) eGFR 9(L) >=60 mL/min/1. 73 m2 Comment: [...] last reviewed 2021. Blood 10/25/2024 5:48 AM VP ANALYSIS 10/25/2024 6:03 AM VP ANALYSIS Raisa Scherer NP LAB BLOOD ORDERABLES Jeaneth mari Result [facility] [address] [address] [place] [address] * (ABNORMAL) CBC without differential (10/25/2024 5:48 AM VP ANALYSIS) WBC 4.6 3.8 - 9.9 K/cumm Hgb 8.3(L) 13.0 - 17.5 g/dL [facility] Hct 28.1(L) 38.9 - 50.3 % [facility] Plt 187 150 - 400 K/cumm [facility] MPV 10.6 9.1 - 12.3 fL [facility] RBC 2.82(L) 4.30 - 5.80 M/cumm [facility] MCV 99.6(H) 81.3 - 96.4 fL [facility] MCH 29.4 27.1 - 33.3 pg [facility] MCHC 29.5(L) 32.3 - 35.7 g/dL [facility] RDW CV 16.3(H) 11.1 - 14.9 % [facility] RDW SD 60.4(H) 35.7 - 48.1 fL [facility] NRBC abs 0.00 0.00 - 0.01 K/cumm [facility] Blood 10/25/2024 5:48 AM VP ANALYSIS 10/25/2024 6:03 AM VP ANALYSIS Raisa Scherer GUNITE NOZZLE OPERATOR LAB BLOOD ORDERABLES Jeaneth l Result NIDIA COTE [address] [address] [place] [address] * (ABNORMAL) Basic metabolic panel (10/25/2024 5:48 AM VP ANALYSIS) Sodium 135 135 - 145 mmol/L Potassium, pl 4.3 3.3 - 4.9 mmol/L [facility] Chloride 93(L) 97 - 110 mmol/L [facility] CO2 27 22 - 32 mmol/L [facility] Anion gap 15 2 - 15 mmol/L [facility] BUN 30(H) 6 - 25 mg/dL [facility] Creatinine 5.94(H) 0.80 - 1.30 mg/dL [facility] Glucose 76 70 - 199 mg/dL [facility] Comment: Interpretive Data Fasting glucose >/= 126 [...] 2022. Calcium 8.8 8.5 - 10.3 mg/dL [facility] Blood 10/25/2024 5:48 AM VP ANALYSIS 10/25/2024 6:03 AM VP ANALYSIS Raisa Scherer GUNITE NOZZLE OPERATOR LAB BLOOD ORDERABLES Jeaneth l Result Performing Organization Address City/[facility]/ZIP Co de Phone Number NIDIA COTE [address] [address] [place] [address] * POCT glucose (10/25/2024 2:25 AM VP ANALYSIS) Glucose, POC 81 70 - 199 mg/dL Blood 10/25/2024 2:25 AM VP ANALYSIS 10/25/2024 2:25 AM VP ANALYSIS Nabeel Ramos Philippe LAB POCT ORDERABLES - DEVICE Final Result Performing Organization Address [facility] Co de Phone Number NIDIA COTE [address] [address] [facility] [place] [address] * POCT glucose (10/24/2024 8:31 PM VP ANALYSIS) Glucose, POC 120 70 - 199 mg/dL Blood 10/24/2024 8:31 PM VP ANALYSIS 10/24/2024 8:31 PM VP ANALYSIS Nabeel Richard Philippe [facility] POCT ORDERABLES - DEVICE Final Result Performing Organization Address [facility] Phone Number NIDIA [address] [address] [facility] [address] * POCT glucose (10/24/2024 4:33 PM VP ANALYSIS) Glucose, POC 85 70 - 199 mg/dL Blood 10/24/2024 4:33 PM VP ANALYSIS 10/24/2024 4:33 PM VP ANALYSIS Nabeel Richard Philippe [facility] POCT ORDERABLES - DEVICE Final Result Performing Organization Address [facility] Phone Number NIDIA [address] [address] [facility] [place] [address] * POCT glucose (10/24/2024 2:03 PM VP ANALYSIS) Glucose, POC 83 70 - 199 mg/dL Blood 10/24/2024 2:03 PM VP ANALYSIS 10/24/2024 2:03 PM VP ANALYSIS Result [facility] us Lees Richard Philippe LAB POCT ORDERABLES - DEVICE Final Result Performing Organization Address [facility] Co de Phone Number NIDIA [address] [address] [facility] [place] [address] * POCT glucose (10/24/2024 11:26 AM VP ANALYSIS) Glucose, POC 85 70 - 199 mg/dL Blood 10/24/2024 11:2 6 AM VP ANALYSIS 10/24/2024 11:26 AM VP ANALYSIS Nabeel Ramos Philippe [facility] POCT ORDERABLES - DEVICE Final Result Performing Organization Address [email or web address]] de Phone Number NIDIA COTE [address] [address] [facility] [place] [address] * POCT glucose (10/24/2024 7:30 AM VP ANALYSIS) Pathologist [facility] Glucose, POC 94 70 - 199 mg/dL Blood 10/24/2024 7:30 AM VP ANALYSIS 10/24/2024 7:30 AM VP ANALYSIS [facility] Richard Philippe [facility] POCT ORDERABLES - DEVICE Final Result Performing Organization Address [facility] [place] [address] [address] [facility] [address] * TSH (10/24/2024 5:12 AM VP ANALYSIS) [facility] Thyroid Stimulating Hormone 0.48 0.30 - 4.20 mcIUnit/mL Blood 10/24/2024 5:12 AM VP ANALYSIS 10/24/2024 5:23 AM VP ANALYSIS Sherrill Christianson MD LAB BLOOD ORDERABLES Final Result Performing Organization Address [email or web address]] [place] [address] [address] [facility] [place] [address] * (ABNORMAL) eGFR (10/24/2024 4:59 AM VP ANALYSIS) [facility] eGFR 13(L) >=60 mL/min/1. 73 m2 Comment: [...] data was last reviewed 2021. Blood 10/24/2024 4:5 9 AM VP ANALYSIS 10/24/2024 5:23 AM VP ANALYSIS us Raisa Scherer NP LAB BLOOD ORDERABLES Jeaneth mari Result [facility] [address] [address] [place] [address] * (ABNORMAL) CBC without differential (10/24/2024 4:59 AM VP ANALYSIS) WBC 5.1 3.8 - 9.9 K/cumm Hgb 8.9(L) 13.0 - 17.5 g/dL [facility] Hct 29.9(L) 38.9 - 50.3 % [facility] Plt 188 150 - 400 K/cumm [facility] MPV 10.2 9.1 - 12.3 fL [facility] RBC 2.93(L) 4.30 - 5.80 M/cumm [facility] MCV 102.0(H) 81.3 - 96.4 fL [facility] MCH 30.4 27.1 - 33.3 pg [facility] MCHC 29.8(L) 32.3 - 35.7 g/dL [facility] RDW CV 16.8(H) 11.1 - 14.9 % [facility] RDW SD 62.6(H) 35.7 - 48.1 fL [facility] NRBC abs 0.00 0.00 - 0.01 K/cumm [facility] Blood 10/24/2024 4:59 AM VP ANALYSIS 10/24/2024 5:20 AM VP ANALYSIS Raisa Scherer NP LAB BLOOD ORDERABLES Jeaneth l Result NIDIA COTE [address] [address] [place] [address] * (ABNORMAL) Basic metabolic panel (10/24/2024 4:59 AM VP ANALYSIS) Sodium 136 135 - 145 mmol/L Potassium, pl 4.2 3.3 - 4.9 mmol/L [facility] Chloride 94(L) 97 - 110 mmol/L [facility] CO2 31 22 - 32 mmol/L [facility] Anion gap 11 2 - 15 mmol/L [facility] BUN 20 6 - 25 mg/dL [facility] Creatinine 4.30(H) 0.80 - 1.30 mg/dL [facility] Glucose 80 70 - 199 mg/dL [facility] Comment: Interpretive Data Fasting glucose >/= 126 [...] 2022. Calcium 9.1 8.5 - 10.3 mg/dL [facility] Blood 10/24/2024 4:59 AM VP ANALYSIS 10/24/2024 5:20 AM VP ANALYSIS us Raisa Scherer NP LAB BLOOD ORDERABLES Jeaneth l Result NIDIA COTE [address] [address] [place] [address] * POCT glucose (10/24/2024 2:39 AM VP ANALYSIS) Glucose, POC 123 70 - 199 mg/dL Blood 10/24/2024 2:39 AM VP ANALYSIS 10/24/2024 2:39 AM VP ANALYSIS Nabeel Richard Paez LAB POCT ORDERABLES - DEVICE Final Result Performing Organization Address [facility] [[email or web address] de Phone Number NIDIA [address] [address] [facility] [place] [address] * POCT glucose (10/23/2024 10:25 PM VP ANALYSIS) Glucose, POC 173 70 - 199 mg/dL Blood 10/23/2024 10:2 5 PM VP ANALYSIS 10/23/2024 10:25 PM VP ANALYSIS Nabeel Richard Philippe [facility] POCT ORDERABLES - DEVICE Final Result Performing Organization Address [facility] de Phone Number ALYSSAALANNAH [address] [address] [facility] [place] [address] * POCT glucose (10/23/2024 8:04 PM VP ANALYSIS) Glucose, POC 70 70 - 199 mg/dL Blood 10/23/2024 8:04 PM VP ANALYSIS 10/23/2024 8:04 PM VP ANALYSIS Nabeel Richard Philippe LAB POCT ORDERABLES - DEVICE Final Result Performing Organization Address [facility] [[email or web address] de Phone Number NIDIA [address] [address] [facility] [place] [address] * POCT glucose (10/23/2024 5:42 PM VP ANALYSIS) Glucose, POC 90 70 - 199 mg/dL Blood 10/23/2024 5:42 PM VP ANALYSIS 10/23/2024 5:42 PM VP ANALYSIS Nabeel Richard Philippe LAB POCT ORDERABLES - DEVICE Final Result Performing Organization Address [facility] de Phone Number NIDIA [place] [address] [place] [address] * Hepatitis panel, acute Blood (10/23/2024 2:45 PM VP ANALYSIS) Pathologist [facility] Hep A IgM Nonreactive Nonreactive Comment: Interpretive Data: If Hep A IgM Ab is reported as Equivocal, a new sample should be drawn in two weeks for testing. Current interpretive data was last revised on 20. Hep B core IgM Nonreactive Nonreactive [facility] Comment: Interpretive Data If HepB Core IgM Ab is reported as Equivocal, a new sample should be drawn in two weeks for testing. Current interpretive data was last revised on 20. Hep C Ab Nonreactive Nonreactive [facility] Comment: Interpretive Data Nonreactive: Antibodies to HCV [...] last revised on 2020. HepBsAg Nonreactive Nonreactive [facility] Blood 10/23/2024 2:45 PM VP ANALYSIS 10/23/2024 2:46 PM VP ANALYSIS Sherrill Christianson MD LAB MICROBIOLOGY - GENERAL ORDERABLES Final Result Performing Organization Address [email or web address] de Phone Number NIDIA COTE [address] [place] [address] * Hepatitis B surface antibody (immune status) Blood (10/23/2024 2:45 PM VP ANALYSIS) [facility] HBsAb (immune status) Nonreactive Comment: Interpretive Data [...] revised on 20. Blood 10/23/2024 2:45 PM VP ANALYSIS 10/23/2024 2:46 PM VP ANALYSIS Sherrill Christianson MD LAB MICROBIOLOGY - GENERAL ORDERABLES Final Result Performing Organization Address [facility] [place] [address] [place] [address] * (ABNORMAL) POCT glucose (10/23/2024 12:57 PM VP ANALYSIS) Glucose, POC 69(L) 70 - 199 mg/dL Blood 10/23/2024 12:5 7 PM VP ANALYSIS 10/23/2024 12:57 PM VP ANALYSIS Nabeel Paez DO LAB POCT ORDERABLES - DEVICE Final Result Performing Organization Address [facility] [place] [address] [place] [address] * POCT glucose (10/23/2024 7:47 AM VP ANALYSIS) Glucose, POC 81 70 - 199 mg/dL Blood 10/23/2024 7:47 AM VP ANALYSIS 10/23/2024 7:47 AM VP ANALYSIS Sylvester Engel MD LAB POCT ORDERABLES - SALO CE Final Result Performing Organization Address [facility] [place] [address] [place] [address] * (ABNORMAL) eGFR (10/23/2024 5:27 AM VP ANALYSIS) eGFR 11(L) >=60 mL/min/1. 73 m2 Comment: [...] last reviewed 2021. Blood 10/23/2024 5:27 AM VP ANALYSIS 10/23/2024 5:32 AM VP ANALYSIS us Raisa Scherer NP LAB BLOOD ORDERABLES Jeaneth l Result [facility] [address] [place] [address] * (ABNORMAL) Differential, auto (10/23/2024 5:27 AM VP ANALYSIS) Neutrophil abs 4.1 1.5 - 6.5 K/cumm Imm gran abs 0.1 0.0 - 0.1 K/cumm [facility] Lymphocyte abs 0.4(L) 0.8 - 3.3 K/cumm [facility] Monocyte abs 0.7 0.2 - 0.8 K/cumm [facility] Eosinophil abs 0.1 0.0 - 0.5 K/cumm [facility] Basophil abs 0.0 0.0 - 0.1 K/cumm [facility] Neutrophil pct 76.5 % [facility] Comment: Interpretive Data Percent cell count reference ranges are not reported, since discordance with absolute values may lead to misinterpretation of CBC data. Current Interpretive Data was last revised on 2018. Imm gran pct 1.1 % [facility] Comment: Interpretive Data Percent cell count reference ranges are not reported, since discordance with absolute values may lead to misinterpretation of CBC data. Current Interpretive Data was last revised on 2018. Lymphocyte pct 7.9 % [facility] Comment: Interpretive Data Percent cell count reference ranges are not reported, since discordance with absolute values may lead to misinterpretation of CBC data. Current Interpretive Data was last revised on 2018. Monocyte pct 12.7 % [facility] Comment: Interpretive Data Percent cell count reference ranges are not reported, since discordance with absolute values may lead to misinterpretation of CBC data. Current Interpretive Data was last revised on 2018. Eosinophil pct 1.1 % [facility] Comment: Interpretive Data Percent cell count reference ranges are not reported, since discordance with absolute values may lead to misinterpretation of CBC data. Current Interpretive Data was last revised on 2018. Basophil pct 0.7 % [facility] Comment: Interpretive Data Percent cell count reference ranges are not reported, since discordance with absolute values may lead to misinterpretation of CBC data. Current Interpretive Data was last revised on 2018. Blood 10/23/2024 5:27 AM VP ANALYSIS 10/23/2024 5:30 AM VP ANALYSIS us Raisa Schreer NP LAB BLOOD ORDERABLES Jeaneth mari Result [facility] [address] [place] [address] * (ABNORMAL) CBC with auto differential (10/23/2024 5:27 AM VP ANALYSIS) WBC 5.3 3.8 - 9.9 K/cumm Hgb 8.8(L) 13.0 - 17.5 g/dL [facility] Hct 28.9(L) 38.9 - 50.3 % [facility] Plt 179 150 - 400 K/cumm [facility] MPV 10.4 9.1 - 12.3 fL [facility] RBC 2.86(L) 4.30 - 5.80 M/cumm [facility] MCV 101.0(H) 81.3 - 96.4 fL [facility] MCH 30.8 27.1 - 33.3 pg [facility] MCHC 30.4(L) 32.3 - 35.7 g/dL [facility] RDW CV 17.2(H) 11.1 - 14.9 % [facility] RDW SD 63.7(H) 35.7 - 48.1 fL [facility] NRBC abs 0.00 0.00 - 0.01 K/cumm [facility] Blood 10/23/2024 5:27 AM VP ANALYSIS 10/23/2024 5:30 AM VP ANALYSIS Raisa Scherer GUNITE NOZZLE OPERATOR LAB BLOOD ORDERABLES Jeaneth l Result [facility] [address] [address] [facility] [place], [place] [id number] * Phosphorus (10/23/2024 5:27 AM VP ANALYSIS) Pathologist [facility] Phosphorus, pl 4.5 2.3 - 4.5 mg/dL Blood 10/23/2024 5:27 AM VP ANALYSIS 10/23/2024 5:30 AM VP ANALYSIS Raisa Scherer GUNITE NOZZLE OPERATOR LAB BLOOD ORDERABLES Jeaneth l Result Performing Organization Address [facility] Co de Phone Number [facility] [address] [address] [facility] [place] [address] * Magnesium (10/23/2024 5:27 AM VP ANALYSIS) [facility] Magnesium 2.1 1.4 - 2.5 mg/dL Blood 10/23/2024 5:27 AM VP ANALYSIS 10/23/2024 5:30 AM VP ANALYSIS Raisa Scherer GUNITE NOZZLE OPERATOR LAB BLOOD ORDERABLES Jeaneth l Result Performing Organization Address [facility] Co de Phone Number [facility] [address] [address] [facility] [place], [place] [id number] * (ABNORMAL) Comprehensive metabolic panel (10/23/2024 5:27 AM VP ANALYSIS) Pathologist [facility] Sodium 137 135 - 145 mmol/L Potassium, [...] Units/L [facility] Blood 10/23/2024 5:27 AM VP ANALYSIS 10/23/2024 5:30 AM VP ANALYSIS us Raisa Scherer NP LAB BLOOD ORDERABLES Jeaneth l Result [facility] [address] Department [place] [address] * POCT glucose (10/23/2024 3:04 AM VP ANALYSIS) Glucose, POC 84 70 - 199 mg/dL Blood 10/23/2024 3:04 AM VP ANALYSIS 10/23/2024 3:04 AM VP ANALYSIS Sylvester Engel MD LAB POCT ORDERABLES - SALO CE Final Result Performing Organization Address [email or web address] de Phone Number NIDIA [address] [address] [facility] [place] [address] * POCT glucose (10/22/2024 10:42 PM VP ANALYSIS) Glucose, POC 101 70 - 199 mg/dL Blood 10/22/2024 10:4 2 PM VP ANALYSIS 10/22/2024 10:42 PM VP ANALYSIS Sylvester Engel MD LAB POCT ORDERABLES - SALO CE Final Result Performing Organization Address [facility] Phone Number NIDIA [address] [place] [address] * POCT glucose (10/22/2024 8:42 PM VP ANALYSIS) Glucose, POC 114 70 - 199 mg/dL Blood 10/22/2024 8:42 PM VP ANALYSIS 10/22/2024 8:42 PM VP ANALYSIS Guru Miller MD LAB POCT ORDERABLES - DEVICE Final Result Performing Organization Address [email or web address] de Phone Number NIDIA [address] [place] [address] * (ABNORMAL) DIABETES EYE EXAM (08/13/2024 9:40 AM CDT) Historical Provider HEALTH MAINTENANCE Edited Result - Final * (ABNORMAL) Albumin Creatinine Ratio, Urine (03/10/2024 8:46 AM CDT) Albumin Ur 3,169.5 mg/L Comment: Interpretive Data No reference range established. Current interpretive data was last revised 2019. Creatinine Ur 47.7 mg/dL [facility] Comment: Interpretive Data No reference range established. Current interpretive data was last revised 2019. Albumin Creatinine Ratio, Ur 6,645(H) 1 - 29 mg/g [facility] Urine 03/10/2024 8:46 AM CDT 03/11/2024 9:11 AM CDT us Bertha Pinto NP LAB URINE ORDERABLES Jeaneth jacey Result [facility] [address] [place] [address] * (ABNORMAL) Lipid panel (03/03/2024 9:29 AM [...] on 2018. Triglycerides 75 <=149 mg/dL NIDIA Comment: Interpretive Data Ages < [...] Bertha Pinto NP LAB BLOOD ORDERABLES Jeaneth mari Result N[facility]IA [place] [address] [place] [address] * CT Abdomen Pelvis WO Contrast (12/05/2021 11:53 AM VP ANALYSIS) Anatomical Region Laterality Modality Body N/A Computed Tomogra phy 12/05/2021 12:0 4 PM VP ANALYSIS Impressions 12/05/2021 12:04 PM VP ANALYSIS Bone windows show no suspicious lytic or blastic lesions. IMPRESSION: 1. 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 2. 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 Electronically signed by: Ryan Cameron M.D. Narrative 12/05/2021 12:04 PM VP ANALYSIS EXAMINATION: Computed tomography of the abdomen/pelvis without [...] adeniform shape. There is atrophy of both [place] kidneys. Adjacent fat stranding is likely related [...] adeniform shape. There is atrophy of both [place] kidneys. Adjacent fat stranding is likely related [...] Recently Relevant to Health Maintenance Insurance MEDICARE [employer] Member Subscriber Plan / Payer (Ef fective 2022-Present) Name:Brandie Morrissey Jr. Relation to Subscriber:Self Name:Brandie Morrissey Jr. Payer ID:[id number] (NAIC) Group ID:Not on file Type: Address: [place] [id number] Meet You [facility] MEDICARE MEDICARE [employer] Care Teams Case Resource Manager Relationship Specialty Start Date End Date Mariza Carrion MD [address] [place] [address] PCP - General Family Practice 03/05/23 Efren Hoyos MD Referring Physician Ophthalmology 06/16/19 Dank Hicks MD [address] [facility] [address] [place], [place] [id number] Consulting Physician Cardiology 10/11/21
[2024-12-09 08:22] LABS: Basophils Percent Auto 0.4 % (0.2-1.2); Hematocrit 32.4 % (42.0-52.0); Hemoglobin 9.4 g/dL (14.0-18.0); Immature Granulocyte Absolute 0.03 K/mm3 (0.00-0.031); Immature Granulocyte Percent A 0.4 % (0-0.5); Lymphocytes Absolute Auto 0.34 K/mm3 (0.9-3.2); Lymphocytes Percent Auto 4.4 % (18.3-44.2); Mean Corpuscular Hemoglobin 27.6 pg (26-34); Mean Corpuscular Volume 95.3 fl (80-100); Mean Platelet Volume 11.7 fl (7.4-10.4); Monocytes Absolute Auto 0.8 K/mm3 (0.1-0.6); Monocytes Percent Auto 10.3 % (2.6-8.5); Neutrophils Absolute Auto 6.6 K/mm3 (1.3-6.7); Neutrophils Percent Auto 84.5 % (45.5-73.1); Platelet Count Result 216 k/mm3 (150-375); Red Cell Distribution Width 18.2 % (11.5-14.5); White Blood Count 7.8 K/mm3 (4.5-10.0)
[2024-12-09 08:33] LABS: INR 1.3; Prothrombin Time 16.4 Seconds (11.1-14.7)
[2024-12-09 08:37] LABS: Alanine Aminotransferase 28 U/L (6-50); Albumin Level 3.7 g/dL (3.5-5.1); Alkaline Phosphatase 54 U/L (38-126); Anion Gap 18 mmol/L (4-12); Aspartate Amino Transferase 27 U/L (17-59); Bilirubin,Total 0.5 mg/dL (0.2-1.3); Blood Urea Nitrogen 63 mg/dL (9-20); Calcium 9.4 mg/dL (8.4-10.2); Carbon Dioxide 25 mmol/L (22-30); Chloride 95 mmol/L (98-107); Estimated Glomerular Filt Rate 7; Glucose 105 mg/dL (65-110); Potassium 5.4 mmol/L (3.4-5.0); Sodium 138 mmol/L (137-145)
[2024-12-09 08:48] LABS: Anisocytosis 2+; Hypochromasia 1+; Platelet Estimate Adequate (Adequate); Schistocytes Rare; Target Cells 1+
[2024-12-09 08:52] LABS: Troponin I 0.195 ng/mL (0.000-0.034)
--- NOTE | 2024-12-09 09:12 | ED_ITS ---
HPI - SOB/Dyspnea General Chief Complaint: Shortness of Breath/Dyspnea Stated Complaint: ?fluid overload/SOB Time Seen by Provider: 12/09/24 07:35 Source: patient Mode of arrival: EMS Limitations: no limitations History of Present Illness HPI Narrative: 79-year-old with a history of hypertension, diabetes, ESRD on hemodialysis was sent from dialysis center this morning as he was complaining of shortness of breath and he is fluid overloaded. Patient states that for the past few days he is not short winded. He denies any chest pain . No history of fever or chills MD elicited complaint: shortness of breath Onset (ago): hour(s) (1) Timing: constant Exacerbating factors: nothing Known history of: other (esrd) Associated symptoms: denies other symptoms Treatment prior to arrival: none Related Data Home Medications ?Medication ?Instructions ?Recorded ?Confirmed ?Last Taken ?Type aspirin 81 mg tablet,delayed 81 mg PO DAILY 10/31/21 11/03/24 10/21/24 History release atorvastatin 20 mg tablet 20 mg PO QHS 10/31/21 11/03/24 10/21/24 History carvedilol 25 mg tablet 25 mg PO BID 10/31/21 11/03/24 10/21/24 History dulaglutide 1.5 mg/0.5 mL 1.5 mg subcut WEEKLY 10/31/21 11/03/24 10/21/24 History subcutaneous pen injector (Trulicity) insulin lispro 100 unit/mL 4 unit subcut .TIDAC 10/31/21 11/03/24 10/21/24 History subcutaneous pen loratadine 10 mg tablet (Claritin) 10 mg PO DAILY 10/31/21 11/03/24 10/21/24 History losartan 100 mg tablet 100 mg PO DAILY 10/31/21 11/03/24 10/21/24 History amlodipine 10 mg tablet 10 mg PO DAILY 11/07/23 11/03/24 10/21/24 History insulin glargine 100 unit/mL (3 6 unit subcut DAILY 11/07/23 11/03/24 10/21/24 History mL) subcutaneous pen (Lantus Solostar U-100 Insulin) sevelamer HCl 800 mg tablet 3,200 mg PO TID 11/07/23 11/03/24 10/21/24 History tamsulosin 0.4 mg capsule 0.4 mg PO QHS 11/07/23 11/03/24 10/21/24 History cinacalcet 90 mg PO DAILY 12/12/23 11/03/24 10/21/24 History Allergies Allergy/AdvReac Type Severity Reaction Status Date / Time No Known Allergies Allergy Verified 11/03/24 15:30 Review of Systems 2 Review of Systems: All systems reviewed & are unremarkable except as noted in HPI and below Constitutional: Constitutional: Reports no additional constitutional complaints Eyes: Eyes: Reports no additional eye complaints Cardiovascular: Cardiovascular: Reports no additional cardiovascular complaints Respiratory: Respiratory: Reports as per HPI Gastrointestinal: Gastrointestinal: Reports no additional gastrointestinal complaints Musculoskeletal: Musculoskeletal: Reports no additional musculoskeletal complaints Integumentary/Breasts: Skin/Breast: Reports system reviewed and no additional complaints, except as docu Neurologic: Reports system reviewed and no additional complaints, except as documented Psychiatric: Psychiatric: Reports no additional psychiatric complaints PMFSH Past Medical History Medical History Sinus pause (~09/2024) Bilateral shoulder pain Obstructive sleep apnea Insulin dependent type 2 diabetes mellitus Chronic obstructive pulmonary disease Coronary artery disease Benign prostatic hyperplasia Peripheral vascular disease Internal hemorrhoid, bleeding Gastritis Anemia End-stage renal disease on hemodialysis History of colon polyps Environmental allergies Vitamin D deficiency Dyslipidemia Essential (primary) hypertension Surgical History Surgical History History of cardiac pacemaker (~10/2024) due to symptomatic sinus pauses causing syncope History of hemorrhoidectomy Anorectal evaluation under anesthesia and excisional hemorrhoidectomy x3 12/14/23 SAW S/P peripheral artery angioplasty (~03/2023) status post balloon angioplasty of bilateral common and external iliac arteries status post left iliofemoral endarterectomy Arteriovenous fistula of left upper extremity (~2017) History of appendectomy (~1962) History of coronary artery bypass graft (~2013) Family History Family History Mother Diabetes mellitus Acute myocardial infarction Family history of congestive heart failure Father Hypertension Social History Social History Social History: Surrogate medical decision maker: Wilian Morrissey, sibling. Code status: Full code. Caffeine- daily Smoking packs per day: 10 Smoking cigarettes per day: 200.0 Years smoked: 10 Smoking pack-years: 100.00 Smoking status: Former smoker Tobacco type: cigarettes and pipe Second hand tobacco smoke exposure: No Smoking end date: 10/22/13 Alcohol intake: current Drinks per week: 1 Alcohol use details: Maybe 2-3 per year Substance use: former Substance use type: prescription drug Do You Feel Safe in your Home?: Yes Lack of Transportation: No Lack of Food: Never True Current Housing: I Have Housing Concerned About Future Housing: No Difficulty Paying Gas/Electric Bills: No Difficulty Paying for Meds: No Currently Unemployed: No Education: Decline to Answer Difficulty w/ Childcare or Family Care: No Living arrangements: with family Occupation/Education: retired Additional occupation/education comments: Retired from the [employer]. Spiritual care concerns: No Agree to blood products: Yes Exam 2 Narrative: GENERAL: Well-appearing, well-nourished, and in no acute distress. HEAD: Normocephalic, atraumatic. EYES: PERRLA and EOMI. NECK: Supple. CHEST: Clear to auscultation. No respiratory distress. HEART: Regular rate and rhythm. No murmur heard. Normal peripheral pulses. ABDOMEN: Soft, nontender, nondistended, normal active bowel sounds. EXTREMITIES: Normal range of motion. No edema. SKIN: Warm, dry, no rash. NEURO: No focal deficits. Alert and oriented x3. PSYCH: Normal mood and affect. Course Course Emergency Course: Patient comfortably resting in no discomfort. Informed him about the lab work, EKG and chest x-ray findings. I discussed with Dr. Muller , recommended admission for in house dialysis , I did inform the Hospitalist Vital Signs Vital signs: Vital Signs Temperature 36.4 C L 12/09/24 07:29 Pulse Rate 76 12/09/24 07:29 Respiratory Rate 20 12/09/24 07:29 Blood Pressure 103/47 L 12/09/24 07:29 Pulse Oximetry 90 12/09/24 07:29 Oxygen Delivery Room Air 12/09/24 07:29 Temperature 36.4 C L 12/09/24 07:29 Pulse Rate 76 12/09/24 07:29 Respiratory Rate 20 12/09/24 07:29 Blood Pressure 103/47 L 12/09/24 07:29 Pulse Oximetry 100 12/09/24 07:55 Oxygen Delivery Nasal Cannula 12/09/24 07:55 Oxygen Flow Rate 2 12/09/24 07:55 MDM - SOB/Dyspnea Differential Diagnosis Differential diagnosis: Likely acute exacerbation of chronic obstructive airways disease Lab Data Attestation: I reviewed the patient's lab results. 12/09/24 08:02 12/09/24 08:02 Labs: Lab Results 12/09/24 Range/Units 08:02 WBC 7.8 (4.5-10.0) K/mm3 RBC 3.40 L (4.6-6.20) M/mm3 Hgb 9.4 L (14.0-18.0) g/dL Hct 32.4 L (42.0-52.0) % MCV 95.3 (80-100) fl MCH 27.6 (26-34) pg MCHC 29.0 L (32-36) g/dl RDW 18.2 H (11.5-14.5) % Plt Count 216 (150-375) k/mm3 MPV 11.7 H (7.4-10.4) fl Immature Gran % (Auto) 0.4 (0-0.5) % Neut % (Auto) 84.5 H (45.5-73.1) % Lymph % (Auto) 4.4 L (18.3-44.2) % [place] % (Auto) 10.3 H (2.6-8.5) % Eos % (Auto) 0.0 (0-4.4) % Baso % (Auto) 0.4 (0.2-1.2) % Lymph # (Auto) 0.34 L (0.9-3.2) K/mm3 [place] # (Auto) 0.8 H (0.1-0.6) K/mm3 Eos # (Auto) 0.0 (0-0.3) K/mm3 Baso # (Auto) 0.0 (0.0-0.1) K/mm3 Abs Immat Gran (auto) 0.03 (0.00-0.031) K/mm3 Absolute Neuts (auto) 6.6 (1.3-6.7) K/mm3 Absolute Nucleated RBC 0.000 (0.0-0.012) K/mm3 Nucleated RBC % 0.0 (0.0-0.2) % Platelet Estimate Adequate (Adequate) Hypochromasia 1+ Anisocytosis 2+ Target Cells 1+ Schistocytes Rare PT 16.4 H (11.1-14.7) Seconds INR 1.3 Sodium 138 (137-145) mmol/L Potassium 5.4 H (3.4-5.0) mmol/L Chloride 95 L (98-107) mmol/L Carbon Dioxide 25 (22-30) mmol/L Anion Gap 18 H (4-12) mmol/L BUN 63 H D (9-20) mg/dL Creatinine 7.60 H (0.7-1.3) mg/dL Estim Creat Clear Calc Not Reportable Estimated GFR 7 L (59 - ) Glucose 105 (65-110) mg/dL Calcium 9.4 (8.4-10.2) mg/dL Total Bilirubin 0.5 (0.2-1.3) mg/dL AST 27 (17-59) U/L ALT 28 (6-50) U/L Alkaline Phosphatase 54 (38-126) U/L Troponin I 0.195 H* (0.000-0.034) ng/mL Total Protein 6.0 L (6.3-8.2) g/dL Albumin 3.7 (3.5-5.1) g/dL Imaging Data Radiologist's impression: ITS Impressions Chest X-Ray 12/09/24 08:23 IMPRESSION: 1. Mild opacity left lower lung zone which could represent atelectasis or pneumonia. 2. Very small bilateral pleural effusions. ECG Data EKG #1: ECG completion date: 12/09/24 ECG completion time: 07:36 EKG Interpretation: normal rate (71), atrial fibrillation, no ectopy, no ST changes and RBBB Discharge Plan Discharge Clinical Impression: Pulmonary edema, End-stage renal disease on hemodialysis Patient Disposition: Still a Patient Condition: Stable Patient Language: [place] Prescriptions: No Action atorvastatin 20 mg tablet 20 mg PO QHS carvedilol 25 mg tablet 25 mg PO BID aspirin 81 mg tablet,delayed release (DR/EC) 81 mg PO DAILY losartan 100 mg tablet 100 mg PO DAILY Trulicity 1.5 mg/0.5 mL pen injector 1.5 mg subcut WEEKLY Rx Instructions: takes on Tuesdays insulin lispro 100 unit/mL insulin pen 4 unit subcut .TIDAC loratadine [Claritin] 10 mg tablet 10 mg PO DAILY insulin glargine [Lantus Solostar U-100 Insulin] 100 unit/mL (3 mL) insulin pen 6 unit subcut DAILY tamsulosin 0.4 mg capsule 0.4 mg PO QHS cyclobenzaprine 10 mg tablet 10 mg PO TID PRN (Reason: muscle spasm) Qty: 30 0RF amlodipine 10 mg tablet 10 mg PO DAILY sevelamer HCl 800 mg tablet 3,200 mg PO TID cinacalcet 90 mg PO DAILY Follow-up/Referrals: Radha Carrion MD [Primary Care Provider] - Time of Disposition: 09:24
[2024-12-09 10:32] LABS: Hepatitis B Surface Antigen Negative (Negative)
--- NOTE | 2024-12-09 10:49 | PC.NURSE ---
Pt was taken to dialysis.
[2024-12-09 10:51] LABS: Hepatitis B Surface Anti Res Indeterminate
--- NOTE | 2024-12-09 12:50 | P.CONNP_ITS ---
History of Present Illness Reason for Consult Consult date: 12/09/24 Reason for consult: end stage renal disease Chief Complaint Chief complaint: Shortness of Breath/Fluid Overload/ ESRD [facility] Past Medical History Medical History Sinus pause (~09/2024) Bilateral shoulder pain Obstructive sleep apnea Insulin dependent type 2 diabetes mellitus Chronic obstructive pulmonary disease Coronary artery disease Benign prostatic hyperplasia Peripheral vascular disease Internal hemorrhoid, bleeding Gastritis Anemia End-stage renal disease on hemodialysis History of colon polyps Environmental allergies Vitamin D deficiency Dyslipidemia Essential (primary) hypertension Surgical History Surgical History History of cardiac pacemaker (~10/2024) due to symptomatic sinus pauses causing syncope History of hemorrhoidectomy Anorectal evaluation under anesthesia and excisional hemorrhoidectomy x3 12/14/23 SAW S/P peripheral artery angioplasty (~03/2023) status post balloon angioplasty of bilateral common and external iliac arteries status post left iliofemoral endarterectomy Arteriovenous fistula of left upper extremity (~2017) History of appendectomy (~1962) History of coronary artery bypass graft (~2013) Family History Family History Mother Diabetes mellitus Acute myocardial infarction Family history of congestive heart failure Father Hypertension Social History Social History Social History: Surrogate medical decision maker: Wilian Finleyn, sibling. Code status: Full code. Caffeine- daily Smoking packs per day: 10 Smoking cigarettes per day: 200.0 Years smoked: 10 Smoking pack-years: 100.00 Smoking status: Former smoker Tobacco type: cigarettes and pipe Second hand tobacco smoke exposure: No Smoking end date: 10/22/11 Alcohol intake: never Drinks per week: 1 Alcohol use details: Maybe 2-3 per year Substance use: never Substance use type: does not use Do You Feel Safe in your Home?: Yes Lack of Transportation: No Lack of Food: Never True Current Housing: I Have Housing Concerned About Future Housing: No Difficulty Paying Gas/Electric Bills: No Difficulty Paying for Meds: No Currently Unemployed: No Education: Associate Degree Difficulty w/ Childcare or Family Care: No Living arrangements: with family Occupation/Education: retired Additional occupation/education comments: Retired from the [employer]. Spiritual care concerns: No Agree to blood products: Yes Meds Home Medications and Allergies Home Medications ?Medication ?Instructions ?Recorded ?Confirmed ?Type aspirin 81 mg tablet,delayed 81 mg PO DAILY 10/31/21 12/09/24 History release carvedilol 25 mg tablet 25 mg PO BID 10/31/21 12/09/24 History dulaglutide 1.5 mg/0.5 mL 1.5 mg subcut WEEKLY 10/31/21 12/09/24 History subcutaneous pen injector (Trulicity) insulin lispro 100 unit/mL 4 unit subcut .TIDAC 10/31/21 12/09/24 History subcutaneous pen loratadine 10 mg tablet (Claritin) 10 mg PO PRN 10/31/21 12/09/24 History losartan 100 mg tablet 100 mg PO PRN 10/31/21 12/09/24 History amlodipine 10 mg tablet 10 mg PO DAILY 11/07/23 12/09/24 History insulin glargine 100 unit/mL (3 6 unit subcut DAILY 11/07/23 12/09/24 History mL) subcutaneous pen (Lantus Solostar U-100 Insulin) sevelamer HCl 800 mg tablet 3,200 mg PO TID 11/07/23 12/09/24 History tamsulosin 0.4 mg capsule 0.4 mg PO QHS 11/07/23 12/09/24 History cinacalcet 90 mg PO DAILY 12/12/23 12/09/24 History cyclobenzaprine 10 mg tablet 10 mg PO TID PRN muscle spasm #30 10/07/24 12/09/24 Rx tabs Allergies Allergy/AdvReac Type Severity Reaction Status Date / Time No Known Allergies Allergy Verified 12/09/24 10:23 Vital Signs Vital Signs Temp Pulse Resp BP Pulse Ox O2 Del Method O2 Flow Rate 12/09/24 10:01 78 20 109/56 L 96 12/09/24 07:55 100 Nasal Cannula 2 12/09/24 07:43 97 Nasal Cannula 2 12/09/24 07:29 97.5 F L 76 20 103/47 L 90 Room Air Results Lab Results 12/09/24 08:02 12/09/24 08:02 Lab results: Most recent lab results Calcium 9.4 mg/dL (8.4-10.2) 12/09/24 08:02
--- NOTE | 2024-12-09 13:19 | PC.NURSE ---
Pt taken lunch drain in dialysis. Pt also moved from stretcher to recliner
[2024-12-09 13:51] LABS: Troponin I 0.232 ng/mL (0.000-0.034)
--- NOTE | 2024-12-09 15:19 | P.HP_ITS ---
H&P: HPI History of Present Illness Date/Time: 12/09/24 15:19 Chief Complaint: Shortness of breath Narrative: 79-year-old male past medical history of COPD, coronary artery disease, anemia, type 2 diabetes who presented to the ER on account of shortness of breath. Patient reported he was the dialysis center for his regular dialysis when he was noted to be short of breath and was sent to the ER for which care. Reported he has been having shortness of breath within the past 3 days. He leg swelling. On room and baseline. Denies any chest pain, nausea vomiting abdominal pain no diarrhea no dysuria no focal symptoms. Patient was seen after dialysis however he was still on 2 L oxygen. ER evaluation notable for blood pressure 109/56, labs notable for hemoglobin 9.4, potassium 5 point focal BUN 63, creatinine 0.6, initial troponin 0.195 repeat was 0.232. EKG showed atrial fibrillation no acute ST-T changes. Chest x-ray showed mild opacity left lung zone which could represent atelectasis versus pneumonia. With this very small bilateral pleural effusions. Review of Systems Review of Systems: All other systems reviewed and negative except the history above. [facility] Past Medical History Medical History Sinus pause (~09/2024) Bilateral shoulder pain Obstructive sleep apnea Insulin dependent type 2 diabetes mellitus Chronic obstructive pulmonary disease Coronary artery disease Benign prostatic hyperplasia Peripheral vascular disease Internal hemorrhoid, bleeding Gastritis Anemia End-stage renal disease on hemodialysis History of colon polyps Environmental allergies Vitamin D deficiency Dyslipidemia Essential (primary) hypertension Surgical History Surgical History History of cardiac pacemaker (~10/2024) due to symptomatic sinus pauses causing syncope History of hemorrhoidectomy Anorectal evaluation under anesthesia and excisional hemorrhoidectomy x3 12/14/23 SAW S/P peripheral artery angioplasty (~03/2023) status post balloon angioplasty of bilateral common and external iliac arteries status post left iliofemoral endarterectomy Arteriovenous fistula of left upper extremity (~2017) History of appendectomy (~1962) History of coronary artery bypass graft (~2013) Family History Family History Mother Diabetes mellitus Acute myocardial infarction Family history of congestive heart failure Father Hypertension Social History Social History Social History: Surrogate medical decision maker: Wilian Morrissey, sibling. Code status: Full code. Caffeine- daily Smoking packs per day: 10 Smoking cigarettes per day: 200.0 Years smoked: 10 Smoking pack-years: 100.00 Smoking status: Former smoker Tobacco type: cigarettes and pipe Second hand tobacco smoke exposure: No Smoking end date: 10/22/11 Alcohol intake: never Drinks per week: 1 Alcohol use details: Maybe 2-3 per year Substance use: never Substance use type: does not use Do You Feel Safe in your Home?: Yes Lack of Transportation: No Lack of Food: Never True Current Housing: I Have Housing Concerned About Future Housing: No Difficulty Paying Gas/Electric Bills: No Difficulty Paying for Meds: No Currently Unemployed: No Education: Associate Degree Difficulty w/ Childcare or Family Care: No Living arrangements: with family Occupation/Education: retired Additional occupation/education comments: Retired from the [employer]. Spiritual care concerns: No Agree to blood products: Yes Meds Home Medications and Allergies Home Medications ?Medication ?Instructions ?Recorded ?Confirmed ?Type aspirin 81 mg tablet,delayed 81 mg PO DAILY 10/31/21 12/09/24 History release carvedilol 25 mg tablet 25 mg PO BID 10/31/21 12/09/24 History dulaglutide 1.5 mg/0.5 mL 1.5 mg subcut WEEKLY 10/31/21 12/09/24 History subcutaneous pen injector (Trulicity) insulin lispro 100 unit/mL 4 unit subcut .TIDAC 10/31/21 12/09/24 History subcutaneous pen loratadine 10 mg tablet (Claritin) 10 mg PO PRN 10/31/21 12/09/24 History losartan 100 mg tablet 100 mg PO PRN 10/31/21 12/09/24 History amlodipine 10 mg tablet 10 mg PO DAILY 11/07/23 12/09/24 History insulin glargine 100 unit/mL (3 6 unit subcut DAILY 11/07/23 12/09/24 History mL) subcutaneous pen (Lantus Solostar U-100 Insulin) sevelamer HCl 800 mg tablet 3,200 mg PO TID 11/07/23 12/09/24 History tamsulosin 0.4 mg capsule 0.4 mg PO QHS 11/07/23 12/09/24 History cinacalcet 90 mg PO DAILY 12/12/23 12/09/24 History cyclobenzaprine 10 mg tablet 10 mg PO TID PRN muscle spasm #30 10/07/24 12/09/24 Rx tabs Allergies Allergy/AdvReac Type Severity Reaction Status Date / Time No Known Allergies Allergy Verified 12/09/24 10:23 Vital Signs Vital Signs - 24 hr 12/09/24 07:29 12/09/24 07:43 12/09/24 07:55 Temperature 97.5 F L Pulse Rate 76 Respiratory Rate 20 Blood Pressure 103/47 L Pulse Oximetry 90 97 100 Oxygen Delivery Room Air Nasal Cannula Nasal Cannula Oxygen Flow Rate 2 2 12/09/24 10:01 Temperature Pulse Rate 78 Respiratory Rate 20 Blood Pressure 109/56 L Pulse Oximetry 96 Oxygen Delivery Oxygen Flow Rate Exam Narrative: General: alert and comfortable Eyes: EOMI, PERRLA ENNT External ears normal, Neck is supple, no masses, Respiratory systems: Diffuse wheezing. Cardiovascular S1, S2, normal rhythm, no murmur, rub, or gallop; no thrill or palpable murmurs on palpation. Gastrointestinal: soft, non-tender, and non-distended abdomen with no masses; BS present Skin: no rash, lesions, ulcerations, subcutaneous nodules or induration Musculoskeletal: Leg edema. Neurologic: Alert and oriented x3, non focal Mental Status Exam: normal affect H&P: Results Labs Labs: Short CBC 12/09/24 Range/Units 08:02 WBC 7.8 (4.5-10.0) K/mm3 Hgb 9.4 L (14.0-18.0) g/dL Hct 32.4 L (42.0-52.0) % Plt Count 216 (150-375) k/mm3 BMP 12/09/24 08:02 Sodium 138 Potassium 5.4 H Chloride 95 L Carbon Dioxide 25 BUN 63 H D Creatinine 7.60 H Glucose 105 Calcium 9.4 Cardiac Enzymes 12/09/24 12/09/24 Range/Units 08:02 13:13 Troponin I 0.195 H* 0.232 H* (0.000-0.034) ng/mL Liver Function 12/09/24 Range/Units 08:02 Total Bilirubin 0.5 (0.2-1.3) mg/dL AST 27 (17-59) U/L ALT 28 (6-50) U/L Alkaline Phosphatase 54 (38-126) U/L Albumin 3.7 (3.5-5.1) g/dL Assessment and Plan Assessment and plan (1) Acute exacerbation of CHF (congestive heart failure): Code(s): I50.9 - Heart failure, unspecified Status: Acute (2) Acute respiratory failure with hypoxia: Code(s): J96.01 - Acute respiratory failure with hypoxia Status: Acute (3) COPD (chronic obstructive pulmonary disease): Qualifiers: COPD type: unspecified COPD Qualified Code(s): J44.9 - Chronic obstructive pulmonary disease, unspecified Code(s): J44.9 - Chronic obstructive pulmonary disease, unspecified Status: Chronic Plan Acute hypoxemic respiratory failure Likely from pneumonia versus COPD versus mild CHF Currently at 2 L oxygen, on room air his baseline. Titrate and monitor. Pneumonia Chest x-ray showed left lower lobe opacity Blood culture and MRSA Continue Levaquin. COPD exacerbation Patient is a history of COPD and has wheezing on auscultation. On steroids, and bronchodilators. Monitor CHF exacerbation Presented with shortness of breath, leg edema, pleural effusion Continue dialysis Continue home medication. Elevated troponin Patient has chronic elevation however this time troponin is inching up higher 1st was 0.195, next was 0.2 Aspirin Lipitor started Cardiology consulted. Type 2 diabetes Sliding scale insulin with Accu-Cheks and adjust med clinical course. Coronary artery disease Continue home medications. End-stage renal disease Continue dialysis per Nephrology. DVT prophylaxis subQ Lovenox Full code Surrogate decision maker is his brother Wilian Morrissey Hospitalist [facility] Advance Care Plan I have confirmed that the patient's Advanced Care Plan is present, code status is documented, or surrogate decision maker is listed in patient medical record.: Yes Medication Reconciliation I have utilized all available resources to obtain, update and review the patients current medications (includes all prescriptions, OTC, herbals, cannabis, and nutritional supplements).: Yes
--- NOTE | 2024-12-09 16:43 | PC.NURSE ---
This patient, Sam Morrissey, was admitted to [facility] Surg Room 304-01. Patient/family oriented to hospital policies and general routines including ID bracelet, bed and alarms, visiting hours, pain management, procedures, bathroom and other care routines, personal items, smoking policy, room service/diet, and visiting hours. Information on how to activate the Rapid Response Team has been discussed. Patient/Family are encouraged to report perceived risks to care and to ask questions if they do not understand what they are told or what they should do.
[2024-12-09] MEDS: levoFLOXacin 750 MG/D5W 150 ML 750 MG/150 ML BAG 100 MG IVPB (16:49)
[2024-12-09 17:26] LABS: Glucose Point of Care 187 mg/dl (65-105)
[2024-12-09 18:53] LABS: MRSA (PCR) NOT DETECTED (NOT DETECTE)
[2024-12-09 21:02] LABS: Influenza A QL RT-PCR Positive (Negative); Influenza B QL RT-PCR Negative (Negative); RSV RNA, RT-PCR Negative (Negative); SARS-CoV-2 RNA PCR Negative (Negative)
[2024-12-09 21:59] LABS: Glucose Point of Care 141 mg/dl (65-105)
[2024-12-09] MEDS: IPRATROPIUM 0.5 MG/ALBUTEROL SULFATE 2.5 MG AMPUL.NEB 3 ML INHALATION (22:02)
[2024-12-09] MEDS: FLUTICASONE/SALMETEROL 115-21 MCG INHALER 1 PUFF 2 PUFF INHALATION (22:02)
[2024-12-09] MEDS: OSELTAMIVIR PHOSPHATE 30 MG CAPSULE PO (23:13)
[2024-12-10] VITALS (32 sets, daily range): BP systolic 107–144; BP diastolic 51–96; PULSE 78–99; RESP 16–28; TEMP 36–37; O2SAT 94–98
[2024-12-10] MEDS: IPRATROPIUM 0.5 MG/ALBUTEROL SULFATE 2.5 MG AMPUL.NEB 3 ML INHALATION ×4 (03:04→21:15)
[2024-12-10 07:33] LABS: Basophils Percent Auto 0.3 % (0.2-1.2); Hematocrit 31.3 % (42.0-52.0); Hemoglobin 9.2 g/dL (14.0-18.0); Immature Granulocyte Absolute 0.03 K/mm3 (0.00-0.031); Immature Granulocyte Percent A 0.4 % (0-0.5); Lymphocytes Absolute Auto 0.47 K/mm3 (0.9-3.2); Mean Corpuscular HGB Conc 29.4 g/dl (32-36); Mean Corpuscular Hemoglobin 27.8 pg (26-34); Mean Corpuscular Volume 94.6 fl (80-100); Mean Platelet Volume 10.9 fl (7.4-10.4); Monocytes Absolute Auto 0.9 K/mm3 (0.1-0.6); Neutrophils Absolute Auto 5.3 K/mm3 (1.3-6.7); Neutrophils Percent Auto 79.3 % (45.5-73.1); Platelet Count Result 209 k/mm3 (150-375); Red Blood Count 3.31 M/mm3 (4.6-6.20); White Blood Count 6.7 K/mm3 (4.5-10.0)
[2024-12-10 07:49] LABS: Alanine Aminotransferase 49 U/L (6-50); Albumin Level 3.6 g/dL (3.5-5.1); Alkaline Phosphatase 63 U/L (38-126); Anion Gap 13 mmol/L (4-12); Aspartate Amino Transferase 47 U/L (17-59); Bilirubin,Total 0.5 mg/dL (0.2-1.3); Blood Urea Nitrogen 48 mg/dL (9-20); Calcium 9.8 mg/dL (8.4-10.2); Carbon Dioxide 31 mmol/L (22-30); Chloride 90 mmol/L (98-107); Estimated CRCL calculation 9 ml/min; Estimated Glomerular Filt Rate 9; Glucose 135 mg/dL (65-110); Magnesium 2.1 mg/dL (1.6-2.3); Potassium 4.8 mmol/L (3.4-5.0); Sodium 134 mmol/L (137-145)
[2024-12-10 08:11] LABS: Glucose Point of Care 138 mg/dl (65-105)
[2024-12-10 08:15] LABS: Troponin I 0.321 ng/mL (0.000-0.034)
[2024-12-10 08:22] LABS: Platelet Estimate Adequate (Adequate)
[2024-12-10 08:23] LABS: Anisocytosis 1+; Hypochromasia 1+; Schistocytes None Seen
--- NOTE | 2024-12-10 08:31 | P.CDI_ITS ---
CDI Query Clarification Request acute exacerbation of CHF has been documented. Please specify type of heart failure if known. Risk Factors:CHF exacerbation Treatment: dialysis pt * Systolic * Diastolic * Combined Systolic and Diastolic * Unknown <Rosie Richard RN - Last Filed: 12/10/24 08:35> Clarified Diagnosis Clarified Diagnosis: Diastolic <Shefali Giordano MD - Last Filed: 12/10/24 09:01>
[2024-12-10] MEDS: HEPARIN SODIUM 1,000 UNITS/ML VIAL 600 UNITS IV PUSH (09:21)
[2024-12-10] MEDS: HEPARIN SODIUM 1,000 UNITS/ML VIAL 500 UNITS IV PUSH ×2 (09:24→10:24)
[2024-12-10] MEDS: FLUTICASONE/SALMETEROL 115-21 MCG INHALER 1 PUFF 2 PUFF INHALATION ×2 (09:31→21:16)
--- NOTE | 2024-12-10 10:10 | P.PNNP_ITS ---
Subjective Date/time seen: 12/10/24 10:10 Interval history: Follow-up for end stage renal disease on hemodialysis. Tolerating dry ultrafiltration treatment at the time of my visit (seen on DUF at 10:00AM); Objective Data Vital Signs Vital Signs: Vital Signs Temp Pulse Resp BP Pulse Ox O2 Del Method O2 Flow Rate 12/10/24 10:00 89 123/96 H 12/10/24 09:45 88 127/66 12/10/24 09:30 88 126/86 12/10/24 09:24 96 107/57 L 12/10/24 09:24 2 12/10/24 09:05 98.2 F 95 28 H 115/54 L 98 12/10/24 08:25 86 18 12/10/24 08:00 95 12/10/24 08:00 94 Nasal Cannula 2 12/10/24 08:00 95 Nasal Cannula 2 12/10/24 06:00 98.3 F 91 20 144/68 H 97 12/10/24 04:00 96 12/10/24 03:14 89 16 12/10/24 03:04 90 16 12/10/24 00:00 91 12/09/24 22:17 92 18 12/09/24 22:09 95 Nasal Cannula 2 12/09/24 22:07 90 18 12/09/24 22:00 98.5 F 86 18 123/60 98 12/09/24 20:00 95 12/09/24 18:52 98.1 F 96 18 97/77 L 95 Intake/Output Intake/Output: Intake & Output 12/07/24 12/08/24 12/09/24 12/10/24 23:59 23:59 23:59 23:59 Intake Total 240 440 Output Total 4000 4100 Balance -[id number] -[id number] Meds/Results Medications: Active Medications Generic Name Dose Route Start Last Admin Trade Name Freq PRN Reason Stop Dose Admin Acetaminophen 650 mg 12/09/24 09:26 Acetaminophen 325 Mg Tablet PO Q4H PRN Mild Pain (1-3) or Fever Albuterol/Ipratropium 3 ml 12/09/24 20:00 12/10/24 14:32 Ipratropium 0.5 Mg/Albuterol Sulfate 2.5 Mg Ampul.Neb 3 Ml INHALATION 3 ml Q6HRT DAVID Administration Aspirin 81 mg 12/10/24 09:00 12/10/24 13:28 Aspirin 81 Mg Enteric Tablet PO 81 mg QAM DAVID Administration Atorvastatin Calcium 40 mg 12/10/24 09:00 12/10/24 13:28 Atorvastatin 40 Mg Tablet PO 40 mg DAILY DAVID Administration Dextrose 12.5 gm 12/09/24 15:51 Dextrose 50% 25 Gm/50 Ml Syringe IV PUSH PRN PRN Hypoglycemia Protocol Epoetin David-epbx 10,000 units 12/10/24 19:43 12/10/24 11:56 Epoetin David-Epbx 10,000 Units/Ml Vial IV PUSH 12/10/24 19:44 10,000 units ONCE ONE Administration Glucagon 1 mg 12/09/24 15:51 Glucagon For Inj 1 Mg Vial IM PRN PRN Hypoglycemia Protocol Glucose 15 gm 12/09/24 15:51 Glucose Oral Gel 15 Gm Of Glucse In 37.5 Gm Tube PO PRN PRN Hypoglycemia Protocol Albumin Human 50 mls @ 999 mls/hr 12/09/24 10:04 Albutein IVPB 01/08/25 10:03 Q10M PRN HYPOTENSION Dextrose 1,000 mls @ 100 mls/hr 12/09/24 15:51 Dextrose 5% 1,000 Ml IVPB PRN PRN Hypoglycemia Protocol Levofloxacin/Dextrose 500 mg in 100 mls @ 100 mls/hr 12/11/24 16:00 Levaquin 500 Mg/D5w 100 Ml IVPB Q48H [facility] Insulin Aspart 3 - 6 units 12/09/24 17:00 12/10/24 16:55 Insulin Aspart (*Bkc) 100 Units/Ml SUB-Q Not Given TIDWM [facility] Protocol Insulin Aspart 1 - 3 units 12/09/24 21:00 12/09/24 23:17 Insulin Aspart (*Bkc) 100 Units/Ml SUB-Q Not Given HS [facility] Protocol Ondansetron HCl 4 mg 12/09/24 09:26 Ondansetron Inj 4 Mg/2 Ml Vial IV PUSH Q4H PRN Nausea Oseltamivir Phosphate 30 mg 12/10/24 14:14 Oseltamivir Phosphate 30 Mg Capsule PO 12/13/24 23:59 PRN PRN DIALYSIS Prednisone 40 mg 12/10/24 08:00 12/10/24 13:28 Prednisone 20 Mg Tablet PO 40 mg DAILY@0800 DAVID Administration Fluticasone/Salmeterol 2 puff 12/09/24 20:00 12/10/24 09:31 Fluticasone/Salmeterol 115-21 Mcg Inhaler 1 Puff INHALATION 2 puff Q12HRT DAVID Administration Radiology Results: ITS Impressions Chest X-Ray 12/09/24 08:23 IMPRESSION: 1. Mild opacity left lower lung zone which could represent atelectasis or pneumonia. 2. Very small bilateral pleural effusions. Labs Labs: Laboratory Tests 12/10/24 06:53 12/10/24 06:53 Calcium 9.8 Magnesium 2.1 Total Bilirubin 0.5 AST 47 ALT 49 Alkaline Phosphatase 63 Troponin I 0.321 H* Total Protein 6.0 L Albumin 3.6 Microbiology 12/09/24 18:44 Blood Blood Culture - Preliminary 12/09/24 18:54 Blood Blood Culture - Preliminary
--- NOTE | 2024-12-10 10:41 | PM.CNCAR ---
Assessment and Plan Assessment and plan (1) Elevated troponin: Code(s): R79.89 - Other specified abnormal findings of blood chemistry Status: Acute Plan 1. Elevated troponin 2. Acute on chronic heart failure with preserved LVEF 3. Influenza A 4. ESRD on HD 5. CAD s/p CABG 6. 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 Hypertension 8. Hyperlipidemia 9. Type 2 diabetes mellitus 10. Atrial fibrillation, noted back on EKG in September 2024 PLAN: -Troponin elevation likely due to demand ischemia in setting of Influenza, acute on chronic HFpEF, ESRD. I do not believe this is an acute coronary syndrome. No plans for ischemic evaluation. -Acute/chronic CHF likely due to Influenza. Volume removal per dialysis. -Supportive care for the Influenza A. -No prior diagnosis of AFIB listed in his chart from what I see. EKGs this admission and one from September 2024 show AFIB. He is rate controlled. Can continue home Coreg. Although anticoagulation indicated for stroke risk reduction, he has significant anemia and required blood transfusions on past hospitalizations, including most recently in September 2024. Therefore, will not start anticoagulation at this time. 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 Cardiology will sign off at this time. Please call us back if needed. History of Present Illness History of Present Illness Consult date/time: 12/10/24 10:41 Requesting physician: Shefali Giordano MD Consult reason: Other (Elevated troponin) Reason For Visit: Shortness of Breath/Fluid Overload/ ESRD Narrative: Sam Morrissey is a 79 year old male with CAD s/p CABG, asystolic sinus pauses in October 2024 s/p Micra pacemaker placement, hypertension, hyperlipidemia, type 2 diabetes mellitus who presented with shortness of breath, lower extremity edema. Lower extremity edema has been going on for the past few days. No chest pain. Workup shows troponins of 0.195, 0.232, 0.321. He is positive for the Influenza A. CXR with mild opacity of the left lower lung zone which could represent atelectasis or pneumonia, very small bilateral pleural effusions. EKG shows atrial fibrillation, RBBB. Of note, his EKG back in September 2024 showed atrial fibrillation. No prior diagnosis of AFIB from what I see. Patient seen on dialysis at the time of my visit. States his complaint is that he is hungry. Review of Systems Review of Systems: All systems reviewed & are unremarkable except as noted in HPI and below (HPI) [facility] Past Medical History Medical History Sinus pause (~09/2024) Bilateral shoulder pain Obstructive sleep apnea Insulin dependent type 2 diabetes mellitus Chronic obstructive pulmonary disease Coronary artery disease Benign prostatic hyperplasia Peripheral vascular disease Internal hemorrhoid, bleeding Gastritis Anemia End-stage renal disease on hemodialysis History of colon polyps Environmental allergies Vitamin D deficiency Dyslipidemia Essential (primary) hypertension Surgical History Surgical History History of cardiac pacemaker (~10/2024) due to symptomatic sinus pauses causing syncope History of hemorrhoidectomy Anorectal evaluation under anesthesia and excisional hemorrhoidectomy x3 12/14/23 SAW S/P peripheral artery angioplasty (~03/2023) status post balloon angioplasty of bilateral common and external iliac arteries status post left iliofemoral endarterectomy Arteriovenous fistula of left upper extremity (~2017) History of appendectomy (~1962) History of coronary artery bypass graft (~2013) Family History Family History Mother Diabetes mellitus Acute myocardial infarction Family history of congestive heart failure Father Hypertension Social History Social History Social History: Surrogate medical decision maker: Wilian Finleyn, sibling. Code status: Full code. Caffeine- daily Smoking packs per day: 10 Smoking cigarettes per day: 200.0 Years smoked: 10 Smoking pack-years: 100.00 Smoking status: Former smoker Tobacco type: cigarettes and pipe Second hand tobacco smoke exposure: No Smoking end date: 10/22/11 Alcohol intake: never Drinks per week: 1 Alcohol use details: Maybe 2-3 per year Substance use: never Substance use type: does not use Do You Feel Safe in your Home?: Yes Lack of Transportation: No Lack of Food: Never True Current Housing: I Have Housing Concerned About Future Housing: No Difficulty Paying Gas/Electric Bills: No Difficulty Paying for Meds: No Currently Unemployed: No Education: Associate Degree Difficulty w/ Childcare or Family Care: No Living arrangements: with family Occupation/Education: retired Additional occupation/education comments: Retired from the [employer]. Spiritual care concerns: No Agree to blood products: Yes Meds Home Medications and Allergies Home Medications ?Medication ?Instructions ?Recorded ?Confirmed ?Type aspirin 81 mg tablet,delayed 81 mg PO DAILY 10/31/21 12/09/24 History release carvedilol 25 mg tablet 25 mg PO BID 10/31/21 12/09/24 History dulaglutide 1.5 mg/0.5 mL 1.5 mg subcut WEEKLY 10/31/21 12/09/24 History subcutaneous pen injector (Trulicity) insulin lispro 100 unit/mL 4 unit subcut .TIDAC 10/31/21 12/09/24 History subcutaneous pen loratadine 10 mg tablet (Claritin) 10 mg PO PRN 10/31/21 12/09/24 History losartan 100 mg tablet 100 mg PO PRN 10/31/21 12/09/24 History amlodipine 10 mg tablet 10 mg PO DAILY 11/07/23 12/09/24 History insulin glargine 100 unit/mL (3 6 unit subcut DAILY 11/07/23 12/09/24 History mL) subcutaneous pen (Lantus Solostar U-100 Insulin) sevelamer HCl 800 mg tablet 3,200 mg PO TID 11/07/23 12/09/24 History tamsulosin 0.4 mg capsule 0.4 mg PO QHS 11/07/23 12/09/24 History cinacalcet 90 mg PO DAILY 12/12/23 12/09/24 History cyclobenzaprine 10 mg tablet 10 mg PO TID PRN muscle spasm #30 10/07/24 12/09/24 Rx tabs Allergies Allergy/AdvReac Type Severity Reaction Status Date / Time No Known Allergies Allergy Verified 12/09/24 10:23 Vital Signs Vital Signs - 24 hr 12/09/24 10:44 12/09/24 10:44 12/09/24 10:56 Temperature 37 C Pulse Rate 81 77 Respiratory Rate 18 Blood Pressure 114/57 L 114/55 L Pulse Oximetry Oxygen Delivery Oxygen Flow Rate 2 Fraction of Inspired Oxygen 12/09/24 11:00 12/09/24 11:15 12/09/24 11:30 Temperature Pulse Rate 81 81 83 Respiratory Rate Blood Pressure 115/53 L 103/52 L 113/51 L Pulse Oximetry Oxygen Delivery Oxygen Flow Rate Fraction of Inspired Oxygen 12/09/24 11:45 12/09/24 12:00 12/09/24 12:15 Temperature Pulse Rate 84 88 86 Respiratory Rate Blood Pressure 107/54 L 115/57 L 108/69 Pulse Oximetry Oxygen Delivery Oxygen Flow Rate Fraction of Inspired Oxygen 12/09/24 12:30 12/09/24 12:45 12/09/24 13:00 Temperature Pulse Rate 88 87 85 Respiratory Rate Blood Pressure 115/58 L 117/63 99/54 L Pulse Oximetry Oxygen Delivery Oxygen Flow Rate Fraction of Inspired Oxygen 12/09/24 13:15 12/09/24 13:30 12/09/24 13:45 Temperature Pulse Rate 89 60 87 Respiratory Rate Blood Pressure 92/52 L 98/79 L 115/57 L Pulse Oximetry Oxygen Delivery Oxygen Flow Rate Fraction of Inspired Oxygen 12/09/24 14:00 12/09/24 14:15 12/09/24 14:30 Temperature Pulse Rate 88 79 89 Respiratory Rate Blood Pressure 108/50 L 125/86 101/72 Pulse Oximetry Oxygen Delivery Oxygen Flow Rate Fraction of Inspired Oxygen 12/09/24 14:54 12/09/24 15:39 12/09/24 17:05 Temperature 36.9 C Pulse Rate 85 87 Respiratory Rate 18 16 Blood Pressure 110/52 L 127/59 L Pulse Oximetry 97 96 Oxygen Delivery Nasal Cannula Oxygen Flow Rate 2 Fraction of Inspired Oxygen 12/09/24 18:52 12/09/24 20:00 12/09/24 22:00 Temperature 36.7 C 36.9 C Pulse Rate 96 95 86 Respiratory Rate 18 18 Blood Pressure 97/77 L 123/60 Pulse Oximetry 95 98 Oxygen Delivery Oxygen Flow Rate Fraction of Inspired Oxygen 12/09/24 22:07 12/09/24 22:09 12/09/24 22:17 Temperature Pulse Rate 90 92 Respiratory Rate 18 18 Blood Pressure Pulse Oximetry 95 Oxygen Delivery Nasal Cannula Oxygen Flow Rate 2 Fraction of Inspired Oxygen 28 12/10/24 00:00 12/10/24 03:04 12/10/24 03:14 Temperature Pulse Rate 91 90 89 Respiratory Rate 16 16 Blood Pressure Pulse Oximetry Oxygen Delivery Oxygen Flow Rate Fraction of Inspired Oxygen 12/10/24 04:00 12/10/24 06:00 12/10/24 08:00 Temperature 36.8 C Pulse Rate 96 91 Respiratory Rate 20 Blood Pressure 144/68 H Pulse Oximetry 97 95 Oxygen Delivery Nasal Cannula Oxygen Flow Rate 2 Fraction of Inspired Oxygen 12/10/24 08:25 12/10/24 09:05 Temperature 36.8 C Pulse Rate 86 95 Respiratory Rate 18 28 H Blood Pressure 115/54 L Pulse Oximetry 98 Oxygen Delivery Oxygen Flow Rate Fraction of Inspired Oxygen Exam Const: General: no acute distress HENMT: Mouth: Yes moist mucous membranes Eyes: General: appearance normal, both eyes and all related structures Sclera: sclerae normal Resp: Effort & Inspection: normal respiratory effort Cardio: Rhythm: abnormal rhythm irregularly irregular Heart sounds: no murmurs Other: Bilateral lower extremity edema Skin: General skin exam: normal color Neuro: Speech: normal speech Psych: Mental Status: mental status grossly normal Affect: normal affect Results Labs and Meds 12/10/24 06:53 12/10/24 06:53 Lab results: Cardiac Enzymes 12/09/24 12/10/24 Range/Units 13:13 06:53 AST 47 (17-59) U/L Troponin I 0.232 H* 0.321 H* (0.000-0.034) ng/mL CBC 12/10/24 Range/Units 06:53 WBC 6.7 (4.5-10.0) K/mm3 RBC 3.31 L (4.6-6.20) M/mm3 Hgb 9.2 L (14.0-18.0) g/dL Hct 31.3 L (42.0-52.0) % Plt Count 209 (150-375) k/mm3 Lymph # (Auto) 0.47 L (0.9-3.2) K/mm3 [place] # (Auto) 0.9 H (0.1-0.6) K/mm3 Eos # (Auto) 0.0 (0-0.3) K/mm3 Baso # (Auto) 0.0 (0.0-0.1) K/mm3 Comprehensive Metabolic Panel 12/10/24 Range/Units 06:53 Sodium 134 L (137-145) mmol/L Potassium 4.8 (3.4-5.0) mmol/L Chloride 90 L (98-107) mmol/L Carbon Dioxide 31 H (22-30) mmol/L BUN 48 H D (9-20) mg/dL Creatinine 5.85 H (0.7-1.3) mg/dL Glucose 135 H (65-110) mg/dL Calcium 9.8 (8.4-10.2) mg/dL AST 47 (17-59) U/L ALT 49 (6-50) U/L Alkaline Phosphatase 63 (38-126) U/L Total Protein 6.0 L (6.3-8.2) g/dL Albumin 3.6 (3.5-5.1) g/dL Intake and Output 12/09/24 12/10/24 12/10/24 23:59 07:59 15:59 Intake Total 240 200 Balance 240 200 Intake: Oral 240 200 Other: # Unmeasured Voids 0 2 Patient Weight 12/10/24 23:59 Weight 85.4 kg
[2024-12-10 10:42] LABS: INR 1.2; Prothrombin Time 15.6 Seconds (11.1-14.7)
[2024-12-10] MEDS: EPOETIN ALFA-EPBX 10,000 UNITS/ML VIAL 10000 UNITS IV PUSH (11:56)
[2024-12-10] MEDS: ATORVASTATIN 40 MG TABLET PO (13:28)
[2024-12-10] MEDS: predniSONE 20 MG TABLET 40 MG PO (13:28)
[2024-12-10] MEDS: ASPIRIN 81 MG ENTERIC TABLET PO (13:28)
[2024-12-10 13:33] LABS: Glucose Point of Care 156 mg/dl (65-105)
[2024-12-10] MEDS: OSELTAMIVIR PHOSPHATE 30 MG CAPSULE PO (14:26)
--- NOTE | 2024-12-10 15:01 | P.PNIM_ITS ---
Progress Note: A&P Assessment and Plan (1) Acute exacerbation of CHF (congestive heart failure): Code(s): I50.9 - Heart failure, unspecified Status: Acute (2) Acute respiratory failure with hypoxia: Code(s): J96.01 - Acute respiratory failure with hypoxia Status: Acute (3) COPD (chronic obstructive pulmonary disease): Qualifiers: COPD type: unspecified COPD Qualified Code(s): J44.9 - Chronic obstructive pulmonary disease, unspecified Code(s): J44.9 - Chronic obstructive pulmonary disease, unspecified Status: Chronic Plan Acute hypoxemic respiratory failure Likely from pneumonia versus COPD versus mild CHF Currently at 2 L oxygen, on room air his baseline. Titrate and monitor. Pneumonia Chest x-ray showed left lower lobe opacity Blood culture and MRSA Continue Levaquin. Influenza A FLu A positive COntinue tamiflu COPD exacerbation Patient is a history of COPD and has wheezing on auscultation. On steroids, and bronchodilators. Monitor CHF exacerbation Presented with shortness of breath, leg edema, pleural effusion Continue dialysis Continue home medication. Elevated troponin Likely demand from Flu Cardiology eval noted continue treatment for Flu monitor Type 2 diabetes Sliding scale insulin with Accu-Cheks and adjust med clinical course. Coronary artery disease Continue home medications. End-stage renal disease Continue dialysis per Nephrology. DVT prophylaxis subQ Lovenox PT/OT eval for discharge disposition Subjective Date/time seen: 12/10/24 15:01 Interval history: Patient comfortable at bedside Troponin elevated likely from Flu A Review of Systems Review of Systems: All other systems reviewed and negative except the history above. Exam Narrative: General: alert and comfortable Eyes: EOMI, PERRLA ENNT External ears normal, Neck is supple, no masses, Respiratory systems: Diffuse wheezing. Cardiovascular S1, S2, normal rhythm, no murmur, rub, or gallop; no thrill or palpable murmurs on palpation. Gastrointestinal: soft, non-tender, and non-distended abdomen with no masses; BS present Skin: no rash, lesions, ulcerations, subcutaneous nodules or induration Musculoskeletal: Leg edema. Neurologic: Alert and oriented x3, non focal Mental Status Exam: normal affect Objective Data Vital Signs Vital Signs: Vital Signs - 24 hr 12/09/24 15:39 12/09/24 17:05 12/09/24 18:52 Temperature 98.1 F Pulse Rate 87 96 Respiratory Rate 16 18 Blood Pressure 127/59 L 97/77 L Pulse Oximetry 97 96 95 Oxygen Delivery Nasal Cannula Oxygen Flow Rate 2 Fraction of Inspired Oxygen 12/09/24 20:00 12/09/24 22:00 12/09/24 22:07 Temperature 98.5 F Pulse Rate 95 86 90 Respiratory Rate 18 18 Blood Pressure 123/60 Pulse Oximetry 98 Oxygen Delivery Oxygen Flow Rate Fraction of Inspired Oxygen 12/09/24 22:09 12/09/24 22:17 12/10/24 00:00 Temperature Pulse Rate 92 91 Respiratory Rate 18 Blood Pressure Pulse Oximetry 95 Oxygen Delivery Nasal Cannula Oxygen Flow Rate 2 Fraction of Inspired Oxygen 28 12/10/24 03:04 12/10/24 03:14 12/10/24 04:00 Temperature Pulse Rate 90 89 96 Respiratory Rate 16 16 Blood Pressure Pulse Oximetry Oxygen Delivery Oxygen Flow Rate Fraction of Inspired Oxygen 12/10/24 06:00 12/10/24 08:00 12/10/24 08:25 Temperature 98.3 F Pulse Rate 91 86 Respiratory Rate 20 18 Blood Pressure 144/68 H Pulse Oximetry 97 95 Oxygen Delivery Nasal Cannula Oxygen Flow Rate 2 Fraction of Inspired Oxygen 12/10/24 09:05 12/10/24 09:24 12/10/24 09:24 Temperature 98.2 F Pulse Rate 95 96 Respiratory Rate 28 H Blood Pressure 115/54 L 107/57 L Pulse Oximetry 98 Oxygen Delivery Oxygen Flow Rate 2 Fraction of Inspired Oxygen 12/10/24 09:30 12/10/24 09:45 12/10/24 10:00 Temperature Pulse Rate 88 88 89 Respiratory Rate Blood Pressure 126/86 127/66 123/96 H Pulse Oximetry Oxygen Delivery Oxygen Flow Rate Fraction of Inspired Oxygen 12/10/24 10:15 12/10/24 10:30 12/10/24 10:45 Temperature Pulse Rate 87 91 88 Respiratory Rate Blood Pressure 115/51 L 124/63 126/66 Pulse Oximetry Oxygen Delivery Oxygen Flow Rate Fraction of Inspired Oxygen 12/10/24 11:00 12/10/24 11:15 12/10/24 11:30 Temperature Pulse Rate 87 84 83 Respiratory Rate Blood Pressure 137/67 121/60 116/69 Pulse Oximetry Oxygen Delivery Oxygen Flow Rate Fraction of Inspired Oxygen 12/10/24 11:45 12/10/24 14:00 12/10/24 14:33 Temperature 96.8 F L Pulse Rate 88 87 78 Respiratory Rate 18 18 Blood Pressure 133/64 119/52 L Pulse Oximetry 94 Oxygen Delivery Oxygen Flow Rate Fraction of Inspired Oxygen 12/10/24 14:45 Temperature Pulse Rate 84 Respiratory Rate 18 Blood Pressure Pulse Oximetry Oxygen Delivery Oxygen Flow Rate Fraction of Inspired Oxygen Intake/Output Intake/Output: Intake & Output 12/07/24 12/08/24 12/09/24 12/10/24 23:59 23:59 23:59 23:59 Intake Total 240 440 Output Total 4000 Balance -3760 440 Meds/Results Medications: Active Medications Generic Name Dose Route Start Last Admin Trade Name Freq PRN Reason Stop Dose Admin Acetaminophen 650 mg 12/09/24 09:26 Acetaminophen 325 Mg Tablet PO Q4H PRN Mild Pain (1-3) or Fever Albuterol/Ipratropium 3 ml 12/09/24 20:00 12/10/24 14:32 Ipratropium 0.5 Mg/Albuterol Sulfate 2.5 Mg Ampul.Neb 3 Ml INHALATION 3 ml Q6HRT DAVID Administration Aspirin 81 mg 12/10/24 09:00 12/10/24 13:28 Aspirin 81 Mg Enteric Tablet PO 81 mg QAM DAVID Administration Atorvastatin Calcium 40 mg 12/10/24 09:00 12/10/24 13:28 Atorvastatin 40 Mg Tablet PO 40 mg DAILY DAVID Administration Dextrose 12.5 gm 12/09/24 15:51 Dextrose 50% 25 Gm/50 Ml Syringe IV PUSH PRN PRN Hypoglycemia Protocol Epoetin David-epbx 10,000 units 12/10/24 19:43 12/10/24 11:56 Epoetin David-Epbx 10,000 Units/Ml Vial IV PUSH 12/10/24 19:44 10,000 units ONCE ONE Administration Glucagon 1 mg 12/09/24 15:51 Glucagon For Inj 1 Mg Vial IM PRN PRN Hypoglycemia Protocol Glucose 15 gm 12/09/24 15:51 Glucose Oral Gel 15 Gm Of Glucse In 37.5 Gm Tube PO PRN PRN Hypoglycemia Protocol Albumin Human 50 mls @ 999 mls/hr 12/09/24 10:04 Albutein IVPB 01/08/25 10:03 Q10M PRN HYPOTENSION Dextrose 1,000 mls @ 100 mls/hr 12/09/24 15:51 Dextrose 5% 1,000 Ml IVPB PRN PRN Hypoglycemia Protocol Levofloxacin/Dextrose 500 mg in 100 mls @ 100 mls/hr 12/11/24 16:00 Levaquin 500 Mg/D5w 100 Ml IVPB Q48H [facility] Insulin Aspart 3 - 6 units 12/09/24 17:00 12/10/24 14:13 Insulin Aspart (*Bkc) 100 Units/Ml SUB-Q Not Given TIDWM [facility] Protocol Insulin Aspart 1 - 3 units 12/09/24 21:00 12/09/24 23:17 Insulin Aspart (*Bkc) 100 Units/Ml SUB-Q Not Given HS [facility] Protocol Ondansetron HCl 4 mg 12/09/24 09:26 Ondansetron Inj 4 Mg/2 Ml Vial IV PUSH Q4H PRN Nausea Oseltamivir Phosphate 30 mg 12/10/24 14:14 Oseltamivir Phosphate 30 Mg Capsule PO 12/13/24 23:59 PRN PRN DIALYSIS Oseltamivir Phosphate 30 mg 12/10/24 15:00 12/10/24 14:26 Oseltamivir Phosphate 30 Mg Capsule PO 12/10/24 15:01 30 mg ONCE ONE Administration Prednisone 40 mg 12/10/24 08:00 12/10/24 13:28 Prednisone 20 Mg Tablet PO 40 mg DAILY@0800 [facility] Administration Fluticasone/Salmeterol 2 puff 12/09/24 20:00 12/10/24 09:31 Fluticasone/Salmeterol 115-21 Mcg Inhaler 1 Puff INHALATION 2 puff Q12HRT DAVID Administration Radiology Results: ITS Impressions Chest X-Ray 12/09/24 08:23 IMPRESSION: 1. Mild opacity left lower lung zone which could represent atelectasis or pneumonia. 2. Very small bilateral pleural effusions. Labs Labs: Laboratory Results - last 24 hr 12/09/24 12/09/24 12/09/24 17:02 17:34 20:17 WBC RBC Hgb Hct MCV MCH MCHC RDW Plt Count MPV Immature Gran % (Auto) Neut % (Auto) Lymph % (Auto) [place] % (Auto) Eos % (Auto) Baso % (Auto) Lymph # (Auto) [place] # (Auto) Eos # (Auto) Baso # (Auto) Abs Immat Gran (auto) Absolute Neuts (auto) Absolute Nucleated RBC Band Neutrophils % Nucleated RBC % Platelet Estimate Hypochromasia Anisocytosis Schistocytes PT INR APTT Sodium Potassium Chloride Carbon Dioxide Anion Gap BUN Creatinine Estim Creat Clear Calc Estimated GFR Glucose POC Capillary Glucose 187 H Calcium Magnesium Total Bilirubin AST ALT Alkaline Phosphatase Troponin I Total Protein Albumin Nasal MRSA (PCR) Not detected Influenza A (RT-PCR) Positive A Influenza B (RT-PCR) Negative RSV (RT-PCR) Negative SARS-CoV-2 RNA (RT-PCR) Negative 12/09/24 12/10/24 12/10/24 20:51 06:53 07:58 WBC 6.7 RBC 3.31 L Hgb 9.2 L Hct 31.3 L MCV 94.6 MCH 27.8 MCHC 29.4 L RDW 18.0 H Plt Count 209 MPV 10.9 H Immature Gran % (Auto) 0.4 Neut % (Auto) 79.3 H Lymph % (Auto) 7.0 L [place] % (Auto) 13.0 H Eos % (Auto) 0.0 Baso % (Auto) 0.3 Lymph # (Auto) 0.47 L [place] # (Auto) 0.9 H Eos # (Auto) 0.0 Baso # (Auto) 0.0 Abs Immat Gran (auto) 0.03 Absolute Neuts (auto) 5.3 Absolute Nucleated RBC 0.000 Band Neutrophils % Not Reportable Nucleated RBC % 0.0 Platelet Estimate Adequate Hypochromasia 1+ Anisocytosis 1+ Schistocytes None seen PT INR APTT Sodium 134 L Potassium 4.8 Chloride 90 L Carbon Dioxide 31 H Anion Gap 13 H BUN 48 H D Creatinine 5.85 H Estim Creat Clear Calc 9 Estimated GFR 9 L Glucose 135 H POC Capillary Glucose 141 H 138 H Calcium 9.8 Magnesium 2.1 Total Bilirubin 0.5 AST 47 ALT 49 Alkaline Phosphatase 63 Troponin I 0.321 H* Total Protein 6.0 L Albumin 3.6 Nasal MRSA (PCR) Influenza A (RT-PCR) Influenza B (RT-PCR) RSV (RT-PCR) SARS-CoV-2 RNA (RT-PCR) 12/10/24 12/10/24 10:16 13:31 WBC RBC Hgb Hct MCV MCH MCHC RDW Plt Count MPV Immature Gran % (Auto) Neut % (Auto) Lymph % (Auto) [place] % (Auto) Eos % (Auto) Baso % (Auto) Lymph # (Auto) [place] # (Auto) Eos # (Auto) Baso # (Auto) Abs Immat Gran (auto) Absolute Neuts (auto) Absolute Nucleated RBC Band Neutrophils % Nucleated RBC % Platelet Estimate Hypochromasia Anisocytosis Schistocytes PT 15.6 H INR 1.2 APTT 44.0 H Sodium Potassium Chloride Carbon Dioxide Anion Gap BUN Creatinine Estim Creat Clear Calc Estimated GFR Glucose POC Capillary Glucose 156 H Calcium Magnesium Total Bilirubin AST ALT Alkaline Phosphatase Troponin I Total Protein Albumin Nasal MRSA (PCR) Influenza A (RT-PCR) Influenza B (RT-PCR) RSV (RT-PCR) SARS-CoV-2 RNA (RT-PCR)
[2024-12-10 16:53] LABS: Glucose Point of Care 189 mg/dl (65-105)
[2024-12-10] MEDS: INSULIN ASPART (*BKC) 100 UNITS/ML SUB-Q (21:01)
[2024-12-10 21:28] LABS: Glucose Point of Care 280 mg/dl (65-105)
[2024-12-11] VITALS (32 sets, daily range): BP systolic 121–153; BP diastolic 56–86; PULSE 70–99; RESP 18–24; TEMP 36.5–37.4; O2SAT 94–98
[2024-12-11 08:04] LABS: Glucose Point of Care 176 mg/dl (65-105)
[2024-12-11 08:17] LABS: Hematocrit 32.2 % (42.0-52.0); Hemoglobin 9.8 g/dL (14.0-18.0); Immature Granulocyte Absolute 0.05 K/mm3 (0.00-0.031); Immature Granulocyte Percent A 0.8 % (0-0.5); Lymphocytes Absolute Auto 0.37 K/mm3 (0.9-3.2); Lymphocytes Percent Auto 5.6 % (18.3-44.2); Mean Corpuscular HGB Conc 30.4 g/dl (32-36); Mean Corpuscular Hemoglobin 27.9 pg (26-34); Mean Corpuscular Volume 91.7 fl (80-100); Mean Platelet Volume 10.1 fl (7.4-10.4); Monocytes Absolute Auto 0.6 K/mm3 (0.1-0.6); Monocytes Percent Auto 8.9 % (2.6-8.5); Neutrophils Absolute Auto 5.6 K/mm3 (1.3-6.7); Neutrophils Percent Auto 84.7 % (45.5-73.1); Nucleated Red Blood Cells Perc 0.3 % (0.0-0.2); Platelet Count Result 230 k/mm3 (150-375); Red Blood Count 3.51 M/mm3 (4.6-6.20); Red Cell Distribution Width 17.6 % (11.5-14.5); White Blood Count 6.6 K/mm3 (4.5-10.0)
[2024-12-11] MEDS: predniSONE 20 MG TABLET 40 MG PO (08:50)
[2024-12-11] MEDS: ATORVASTATIN 40 MG TABLET PO (08:50)
[2024-12-11] MEDS: ASPIRIN 81 MG ENTERIC TABLET PO (08:50)
--- NOTE | 2024-12-11 09:05 | PC.NURSE ---
To Dialysis via bed. Verbal report given to Sean MARQUEZrailroad inspector nurse.
[2024-12-11] MEDS: IPRATROPIUM 0.5 MG/ALBUTEROL SULFATE 2.5 MG AMPUL.NEB 3 ML INHALATION ×3 (09:40→21:31)
[2024-12-11] MEDS: FLUTICASONE/SALMETEROL 115-21 MCG INHALER 1 PUFF 2 PUFF INHALATION ×2 (10:11→21:31)
--- NOTE | 2024-12-11 10:58 | P.PNIM_ITS ---
Progress Note: A&P Assessment and Plan (1) Acute exacerbation of CHF (congestive heart failure): Code(s): I50.9 - Heart failure, unspecified Status: Acute (2) Acute respiratory failure with hypoxia: Code(s): J96.01 - Acute respiratory failure with hypoxia Status: Acute (3) COPD (chronic obstructive pulmonary disease): Qualifiers: COPD type: unspecified COPD Qualified Code(s): J44.9 - Chronic obstructive pulmonary disease, unspecified Code(s): J44.9 - Chronic obstructive pulmonary disease, unspecified Status: Chronic Plan Acute hypoxemic respiratory failure Likely from pneumonia versus COPD versus mild CHF Currently at 2 L oxygen, on room air his baseline. Titrate and monitor. Pneumonia Chest x-ray showed left lower lobe opacity Blood culture and MRSA Day 3 on Levaquin. Influenza A FLu A positive Continue tamiflu COPD exacerbation Patient is a history of COPD and has wheezing on auscultation. On steroids, and bronchodilators. Monitor CHF exacerbation Presented with shortness of breath, leg edema, pleural effusion Continue dialysis Continue home medication. Elevated troponin Likely demand from Flu Cardiology eval noted continue treatment for Flu monitor Type 2 diabetes Sliding scale insulin with Accu-Cheks and adjust med clinical course. Coronary artery disease Continue home medications. End-stage renal disease Continue dialysis per Nephrology. DVT prophylaxis subQ Lovenox awaiting PT/OT eval for discharge disposition Subjective Date/time seen: 12/11/24 10:58 Interval history: comfortable at bedside awaiting PT/OT eval for discharge planning Review of Systems Review of Systems: All other systems reviewed and negative except the history above. Exam Narrative: General: alert and comfortable Eyes: EOMI, PERRLA ENNT External ears normal, Neck is supple, no masses, Respiratory systems: Diffuse wheezing. Cardiovascular S1, S2, normal rhythm, no murmur, rub, or gallop; no thrill or palpable murmurs on palpation. Gastrointestinal: soft, non-tender, and non-distended abdomen with no masses; BS present Skin: no rash, lesions, ulcerations, subcutaneous nodules or induration Musculoskeletal: Leg edema. Neurologic: Alert and oriented x3, non focal Mental Status Exam: normal affect Objective Data Vital Signs Vital Signs: Vital Signs - 24 hr 12/10/24 11:00 12/10/24 11:15 12/10/24 11:30 Temperature Pulse Rate 87 84 83 Respiratory Rate Blood Pressure 137/67 121/60 116/69 Pulse Oximetry Oxygen Delivery Oxygen Flow Rate 12/10/24 11:45 12/10/24 12:00 12/10/24 12:00 Temperature Pulse Rate 88 90 89 Respiratory Rate Blood Pressure 133/64 144/72 H Pulse Oximetry Oxygen Delivery Oxygen Flow Rate 12/10/24 12:15 12/10/24 12:24 12/10/24 12:30 Temperature 97 F L Pulse Rate 99 91 94 Respiratory Rate 20 Blood Pressure 113/67 110/56 L 128/64 Pulse Oximetry 98 Oxygen Delivery Oxygen Flow Rate 12/10/24 14:00 12/10/24 14:33 12/10/24 14:45 Temperature 96.8 F L Pulse Rate 87 78 84 Respiratory Rate 18 18 18 Blood Pressure 119/52 L Pulse Oximetry 94 Oxygen Delivery Oxygen Flow Rate 12/10/24 16:00 12/10/24 20:00 12/10/24 20:00 Temperature Pulse Rate 78 87 Respiratory Rate Blood Pressure Pulse Oximetry 94 Oxygen Delivery Nasal Cannula Oxygen Flow Rate 2 12/10/24 21:16 12/10/24 21:30 12/10/24 21:50 Temperature 98.4 F Pulse Rate 86 78 89 Respiratory Rate 18 18 20 Blood Pressure 144/90 H Pulse Oximetry 97 Oxygen Delivery Oxygen Flow Rate 12/11/24 00:00 12/11/24 04:00 12/11/24 06:00 Temperature 98.4 F Pulse Rate 89 88 83 Respiratory Rate 18 Blood Pressure 135/68 Pulse Oximetry 98 Oxygen Delivery Oxygen Flow Rate 12/11/24 08:02 12/11/24 08:50 12/11/24 09:03 Temperature 97.9 F Pulse Rate 88 84 Respiratory Rate 18 24 H Blood Pressure 124/62 Pulse Oximetry 98 98 Oxygen Delivery Nasal Cannula Oxygen Flow Rate 2 12/11/24 09:20 12/11/24 09:20 12/11/24 09:30 Temperature Pulse Rate 85 78 Respiratory Rate Blood Pressure 124/66 123/68 Pulse Oximetry Oxygen Delivery Oxygen Flow Rate 2 12/11/24 09:40 12/11/24 09:45 12/11/24 10:00 Temperature Pulse Rate 86 86 91 Respiratory Rate 18 Blood Pressure 153/67 H 141/68 H Pulse Oximetry Oxygen Delivery Oxygen Flow Rate 12/11/24 10:12 12/11/24 10:15 12/11/24 10:30 Temperature Pulse Rate 90 93 Respiratory Rate Blood Pressure 124/86 146/73 H Pulse Oximetry 94 Oxygen Delivery Nasal Cannula Oxygen Flow Rate 2 12/11/24 10:50 Temperature Pulse Rate 96 Respiratory Rate Blood Pressure 132/59 L Pulse Oximetry Oxygen Delivery Oxygen Flow Rate Intake/Output Intake/Output: Intake & Output 12/08/24 12/09/24 12/10/24 12/11/24 23:59 23:59 23:59 23:59 Intake Total 240 680 830 Output Total 4000 4100 Balance -3760 -3420 830 Meds/Results Medications: Active Medications Generic Name Dose Route Start Last Admin Trade Name Freq PRN Reason Stop Dose Admin Acetaminophen 650 mg 12/09/24 09:26 Acetaminophen 325 Mg Tablet PO Q4H PRN Mild Pain (1-3) or Fever Albuterol/Ipratropium 3 ml 12/09/24 20:00 12/11/24 09:40 Ipratropium 0.5 Mg/Albuterol Sulfate 2.5 Mg Ampul.Neb 3 Ml INHALATION 3 ml Q6HRT DAVID Administration Aspirin 81 mg 12/10/24 09:00 12/11/24 08:50 Aspirin 81 Mg Enteric Tablet PO 81 mg QAM DAVID Administration Atorvastatin Calcium 40 mg 12/10/24 09:00 12/11/24 08:50 Atorvastatin 40 Mg Tablet PO 40 mg DAILY DAVID Administration Dextrose 12.5 gm 12/09/24 15:51 Dextrose 50% 25 Gm/50 Ml Syringe IV PUSH PRN PRN Hypoglycemia Protocol Epoetin David-epbx 10,000 units 12/11/24 18:20 Epoetin David-Epbx 10,000 Units/Ml Vial IV PUSH 12/11/24 18:21 ONCE ONE Glucagon 1 mg 12/09/24 15:51 Glucagon For Inj 1 Mg Vial IM PRN PRN Hypoglycemia Protocol Glucose 15 gm 12/09/24 15:51 Glucose Oral Gel 15 Gm Of Glucse In 37.5 Gm Tube PO PRN PRN Hypoglycemia Protocol Heparin Sodium (Porcine) 5,000 units 12/10/24 22:00 12/11/24 05:24 Heparin Sodium 5,000 Units/Ml Vial SUB-Q Not Given Q8HR DAVID Albumin Human 50 mls @ 999 mls/hr 12/09/24 10:04 Albutein IVPB 01/08/25 10:03 Q10M PRN HYPOTENSION Dextrose 1,000 mls @ 100 mls/hr 12/09/24 15:51 Dextrose 5% 1,000 Ml IVPB PRN PRN Hypoglycemia Protocol Levofloxacin/Dextrose 500 mg in 100 mls @ 100 mls/hr 12/11/24 16:00 Levaquin 500 Mg/D5w 100 Ml IVPB Q48H [facility] Insulin Aspart 3 - 6 units 12/09/24 17:00 12/11/24 07:40 Insulin Aspart (*Bkc) 100 Units/Ml SUB-Q Not Given TIDWM DAVID Protocol Insulin Aspart 1 - 3 units 12/09/24 21:00 12/10/24 21:01 Insulin Aspart (*Bkc) 100 Units/Ml SUB-Q 2 units HS [facility] Administration Protocol Ondansetron HCl 4 mg 12/09/24 09:26 Ondansetron Inj 4 Mg/2 Ml Vial IV PUSH Q4H PRN Nausea Oseltamivir Phosphate 30 mg 12/10/24 14:14 Oseltamivir Phosphate 30 Mg Capsule PO 12/13/24 23:59 PRN PRN DIALYSIS Prednisone 40 mg 12/10/24 08:00 12/11/24 08:50 Prednisone 20 Mg Tablet PO 40 mg DAILY@0800 [facility] Administration Fluticasone/Salmeterol 2 puff 12/09/24 20:00 12/11/24 10:11 Fluticasone/Salmeterol 115-21 Mcg Inhaler 1 Puff INHALATION 2 puff Q12HRT DAVID Administration Radiology Results: ITS Impressions Chest X-Ray 12/09/24 08:23 IMPRESSION: 1. Mild opacity left lower lung zone which could represent atelectasis or pneumonia. 2. Very small bilateral pleural effusions. Labs Labs: Laboratory Results - last 24 hr 12/10/24 12/10/24 12/10/24 10:16 13:31 16:42 WBC RBC Hgb Hct MCV MCH MCHC RDW Plt Count MPV Immature Gran % (Auto) Neut % (Auto) Lymph % (Auto) [place] % (Auto) Eos % (Auto) Baso % (Auto) Lymph # (Auto) [place] # (Auto) Eos # (Auto) Baso # (Auto) Abs Immat Gran (auto) Absolute Neuts (auto) Absolute Nucleated RBC Nucleated RBC % PT 15.6 H INR 1.2 APTT 44.0 H POC Capillary Glucose 156 H 189 H 12/10/24 12/11/24 12/11/24 20:55 07:38 08:06 WBC 6.6 RBC 3.51 L Hgb 9.8 L Hct 32.2 L MCV 91.7 MCH 27.9 MCHC 30.4 L RDW 17.6 H Plt Count 230 MPV 10.1 Immature Gran % (Auto) 0.8 H Neut % (Auto) 84.7 H Lymph % (Auto) 5.[address] [place] % (Auto) 8.9 H Eos % (Auto) 0.0 Baso % (Auto) 0.0 L Lymph # (Auto) 0.[address] [place] # (Auto) 0.6 Eos # (Auto) 0.0 Baso # (Auto) 0.0 Abs Immat Gran (auto) 0.05 H Absolute Neuts (auto) 5.6 Absolute Nucleated RBC 0.020 H Nucleated RBC % 0.3 H PT INR APTT POC Capillary Glucose 280 H 176 H
--- NOTE | 2024-12-11 12:00 | PM.PNNEP ---
Subjective Date/time seen: 12/11/24 12:00 Interval history: Follow-up for end stage renal disease on hemodialysis. Tolerating dialysis treatment at the time of my visit (seen on HD at 11:50AM); Objective Data Vital Signs Vital Signs: Vital Signs Temp Pulse Resp BP Pulse Ox O2 Del Method O2 Flow Rate 12/11/24 11:45 96 139/73 12/11/24 11:30 96 152/65 H 12/11/24 11:15 86 143/66 H 12/11/24 11:00 91 140/63 12/11/24 10:45 96 132/59 L 12/11/24 10:30 93 146/73 H 12/11/24 10:15 90 124/86 12/11/24 10:12 94 Nasal Cannula 2 12/11/24 10:00 91 141/68 H 12/11/24 09:45 86 153/67 H 12/11/24 09:40 86 18 12/11/24 09:30 78 123/68 12/11/24 09:20 2 12/11/24 09:20 85 124/66 12/11/24 09:03 97.9 F 84 24 H 124/62 98 12/11/24 08:50 18 98 Nasal Cannula 2 12/11/24 08:02 88 12/11/24 06:00 98.4 F 83 18 135/68 98 12/11/24 04:00 88 12/11/24 00:00 89 12/10/24 21:50 98.4 F 89 20 144/90 H 97 12/10/24 21:30 78 18 12/10/24 21:16 86 18 12/10/24 20:00 87 12/10/24 20:00 94 Nasal Cannula 2 Intake/Output Intake/Output: Intake & Output 12/08/24 12/09/24 12/10/24 12/11/24 23:59 23:59 23:59 23:59 Intake Total 561 229 3059 Output Total 4000 4100 4000 Balance -1874 -9571 -2710 Meds/Results Medications: Active Medications Generic Name Dose Route Start Last Admin Trade Name Freq PRN Reason Stop Dose Admin Acetaminophen 650 mg 12/09/24 09:26 Acetaminophen 325 Mg Tablet PO Q4H PRN Mild Pain (1-3) or Fever Albuterol/Ipratropium 3 ml 12/09/24 20:00 12/11/24 14:36 Ipratropium 0.5 Mg/Albuterol Sulfate 2.5 Mg Ampul.Neb 3 Ml INHALATION 3 ml Q6HRT DAVID Administration Aspirin 81 mg 12/10/24 09:00 12/11/24 08:50 Aspirin 81 Mg Enteric Tablet PO 81 mg QAM DAVID Administration Atorvastatin Calcium 40 mg 12/10/24 09:00 12/11/24 08:50 Atorvastatin 40 Mg Tablet PO 40 mg DAILY DAVID Administration Dextrose 12.5 gm 12/09/24 15:51 Dextrose 50% 25 Gm/50 Ml Syringe IV PUSH PRN PRN Hypoglycemia Protocol Epoetin David-epbx 10,000 units 12/11/24 18:20 12/11/24 12:26 Epoetin David-Epbx 10,000 Units/Ml Vial IV PUSH 12/11/24 18:21 10,000 units ONCE ONE Administration Glucagon 1 mg 12/09/24 15:51 Glucagon For Inj 1 Mg Vial IM PRN PRN Hypoglycemia Protocol Glucose 15 gm 12/09/24 15:51 Glucose Oral Gel 15 Gm Of Glucse In 37.5 Gm Tube PO PRN PRN Hypoglycemia Protocol Heparin Sodium (Porcine) 5,000 units 12/10/24 22:00 12/11/24 13:57 Heparin Sodium 5,000 Units/Ml Vial SUB-Q 5,000 units Q8HR DAVID Administration Albumin Human 50 mls @ 999 mls/hr 12/09/24 10:04 Albutein IVPB 01/08/25 10:03 Q10M PRN HYPOTENSION Dextrose 1,000 mls @ 100 mls/hr 12/09/24 15:51 Dextrose 5% 1,000 Ml IVPB PRN PRN Hypoglycemia Protocol Levofloxacin/Dextrose 500 mg in 100 mls @ 100 mls/hr 12/11/24 16:00 12/11/24 15:12 Levaquin 500 Mg/D5w 100 Ml IVPB 100 mls/hr Q48H DAVID Administration Insulin Aspart 3 - 6 units 12/09/24 17:00 12/11/24 17:02 Insulin Aspart (*Bkc) 100 Units/Ml SUB-Q 5 units TIDWM DAVID Administration Protocol Insulin Aspart 1 - 3 units 12/09/24 21:00 12/10/24 21:01 Insulin Aspart (*Bkc) 100 Units/Ml SUB-Q 2 units HS DAVID Administration Protocol Ondansetron HCl 4 mg 12/09/24 09:26 Ondansetron Inj 4 Mg/2 Ml Vial IV PUSH Q4H PRN Nausea Oseltamivir Phosphate 30 mg 12/10/24 14:14 Oseltamivir Phosphate 30 Mg Capsule PO 12/13/24 23:59 PRN PRN DIALYSIS Prednisone 40 mg 12/10/24 08:00 12/11/24 08:50 Prednisone 20 Mg Tablet PO 40 mg DAILY@0800 DAVID Administration Fluticasone/Salmeterol 2 puff 12/09/24 20:00 12/11/24 10:11 Fluticasone/Salmeterol 115-21 Mcg Inhaler 1 Puff INHALATION 2 puff Q12HRT DAVID Administration Radiology Results: ITS Impressions Chest X-Ray 12/09/24 08:23 IMPRESSION: 1. Mild opacity left lower lung zone which could represent atelectasis or pneumonia. 2. Very small bilateral pleural effusions. Labs Labs: Laboratory Tests 12/11/24 08:06 12/10/24 06:53 Microbiology 12/09/24 18:44 Blood Blood Culture - Preliminary 12/09/24 18:54 Blood Blood Culture - Preliminary
--- NOTE | 2024-12-11 12:02 | PCPTNOTE ---
attempted PT eval, pt in dialysis, will follow
[2024-12-11] MEDS: EPOETIN ALFA-EPBX 10,000 UNITS/ML VIAL 10000 UNITS IV PUSH (12:26)
--- NOTE | 2024-12-11 13:50 | PC.NURSE ---
Returned from dialysis via bed.
[2024-12-11 13:56] LABS: Glucose Point of Care 245 mg/dl (65-105)
[2024-12-11] MEDS: HEPARIN SODIUM 5,000 UNITS/ML VIAL 5000 UNITS SUB-Q ×2 (13:57→21:35)
[2024-12-11] MEDS: INSULIN ASPART (*BKC) 100 UNITS/ML SUB-Q ×3 (13:58→21:36)
[2024-12-11] MEDS: levoFLOXacin 500 MG/D5W 100 ML 500 MG/100 ML BAG 100 MG IVPB (15:12)
[2024-12-11 16:53] LABS: Glucose Point of Care 344 mg/dl (65-105)
[2024-12-11] MEDS: OSELTAMIVIR PHOSPHATE 30 MG CAPSULE PO (20:20)
[2024-12-11 22:49] LABS: Glucose Point of Care 363 mg/dl (65-105)
[2024-12-12 02:20] VITALS: PULSE 94; RESP 20
[2024-12-12] MEDS: IPRATROPIUM 0.5 MG/ALBUTEROL SULFATE 2.5 MG AMPUL.NEB 3 ML INHALATION ×2 (02:20→13:46)
[2024-12-12 02:30] VITALS: PULSE 103; RESP 20
[2024-12-12] MEDS: HEPARIN SODIUM 5,000 UNITS/ML VIAL 5000 UNITS SUB-Q ×2 (05:25→13:15)
[2024-12-12 06:00] VITALS: BP 134/86; PULSE 74; RESP 18; TEMP 36.4; O2SAT 99
[2024-12-12 07:42] LABS: Basophils Percent Auto 0.2 % (0.2-1.2); Hematocrit 33.5 % (42.0-52.0); Hemoglobin 9.8 g/dL (14.0-18.0); Immature Granulocyte Absolute 0.11 K/mm3 (0.00-0.031); Immature Granulocyte Percent A 1.7 % (0-0.5); Lymphocytes Absolute Auto 0.58 K/mm3 (0.9-3.2); Lymphocytes Percent Auto 9.2 % (18.3-44.2); Mean Corpuscular HGB Conc 29.3 g/dl (32-36); Mean Corpuscular Hemoglobin 27.5 pg (26-34); Mean Corpuscular Volume 93.8 fl (80-100); Mean Platelet Volume 10.5 fl (7.4-10.4); Monocytes Absolute Auto 0.6 K/mm3 (0.1-0.6); Neutrophils Percent Auto 78.9 % (45.5-73.1); Nucleated Red Blood Cells Perc 0.5 % (0.0-0.2); Platelet Count Result 242 k/mm3 (150-375); Red Blood Count 3.57 M/mm3 (4.6-6.20); Red Cell Distribution Width 17.4 % (11.5-14.5); White Blood Count 6.3 K/mm3 (4.5-10.0)
[2024-12-12 07:53] LABS: Glucose Point of Care 208 mg/dl (65-105)
[2024-12-12 08:04] LABS: Alanine Aminotransferase 40 U/L (6-50); Albumin Level 3.9 g/dL (3.5-5.1); Alkaline Phosphatase 70 U/L (38-126); Anion Gap 16 mmol/L (4-12); Aspartate Amino Transferase 23 U/L (17-59); Bilirubin,Total 0.5 mg/dL (0.2-1.3); Blood Urea Nitrogen 47 mg/dL (9-20); Calcium 10.3 mg/dL (8.4-10.2); Carbon Dioxide 24 mmol/L (22-30); Chloride 90 mmol/L (98-107); Estimated CRCL calculation 11 ml/min; Estimated Glomerular Filt Rate 11; Glucose 208 mg/dL (65-110); Potassium 5.2 mmol/L (3.4-5.0); Sodium 130 mmol/L (137-145)
[2024-12-12 08:30] VITALS: PULSE 74; RESP 18; O2SAT 99
[2024-12-12 08:48] LABS: Platelet Estimate Adequate (Adequate)
[2024-12-12 08:50] LABS: Hypochromasia 1+; Schistocytes Rare
[2024-12-12] MEDS: INSULIN ASPART (*BKC) 100 UNITS/ML SUB-Q ×2 (09:43→13:15)
[2024-12-12] MEDS: ATORVASTATIN 40 MG TABLET PO (09:51)
[2024-12-12] MEDS: predniSONE 20 MG TABLET 40 MG PO (09:51)
[2024-12-12] MEDS: ASPIRIN 81 MG ENTERIC TABLET PO (09:51)
[2024-12-12 12:03] LABS: Glucose Point of Care 261 mg/dl (65-105)
--- NOTE | 2024-12-12 12:22 | P.PNNP_ITS ---
Subjective Date/time seen: 12/12/24 12:22 Interval history: Follow-up for end stage renal disease on hemodialysis. Tolerated dialysis treatment yesterday without any issues or problems; Objective Data Vital Signs Vital Signs: Vital Signs Temp Pulse Resp BP Pulse Ox O2 Del Method O2 Flow Rate 12/12/24 12:20 Nasal Cannula 2 12/12/24 09:12 Nasal Cannula 2 12/12/24 08:30 74 18 99 Nasal Cannula 1.5 12/12/24 06:00 97.5 F L 74 18 134/86 99 12/12/24 02:30 103 H 20 12/12/24 02:20 94 20 12/11/24 22:55 99.3 F 94 18 142/69 H 97 12/11/24 21:43 92 18 12/11/24 21:31 94 18 12/11/24 21:31 97 Nasal Cannula 2 12/11/24 20:00 Room Air 12/11/24 14:36 82 18 Intake/Output Intake/Output: Intake & Output 12/09/24 12/10/24 12/11/24 12/12/24 23:59 23:59 23:59 23:59 Intake Total 059 341 5826 1200 Output Total 4000 4100 4000 Balance -3760 -3420 -2350 1200 Meds/Results Medications: Active Medications Generic Name Dose Route Start Last Admin Trade Name Freq PRN Reason Stop Dose Admin Acetaminophen 650 mg 12/09/24 09:26 Acetaminophen 325 Mg Tablet PO Q4H PRN Mild Pain (1-3) or Fever Albuterol/Ipratropium 3 ml 12/09/24 20:00 12/12/24 13:46 Ipratropium 0.5 Mg/Albuterol Sulfate 2.5 Mg Ampul.Neb 3 Ml INHALATION 3 ml Q6HRT DAVID Administration Aspirin 81 mg 12/10/24 09:00 12/12/24 09:51 Aspirin 81 Mg Enteric Tablet PO 81 mg QAM DAVID Administration Atorvastatin Calcium 40 mg 12/10/24 09:00 12/12/24 09:51 Atorvastatin 40 Mg Tablet PO 40 mg DAILY DAVID Administration Dextrose 12.5 gm 12/09/24 15:51 Dextrose 50% 25 Gm/50 Ml Syringe IV PUSH PRN PRN Hypoglycemia Protocol Glucagon 1 mg 12/09/24 15:51 Glucagon For Inj 1 Mg Vial IM PRN PRN Hypoglycemia Protocol Glucose 15 gm 12/09/24 15:51 Glucose Oral Gel 15 Gm Of Glucse In 37.5 Gm Tube PO PRN PRN Hypoglycemia Protocol Heparin Sodium (Porcine) 5,000 units 12/10/24 22:00 12/12/24 13:15 Heparin Sodium 5,000 Units/Ml Vial SUB-Q 5,000 units Q8HR DAVID Administration Albumin Human 50 mls @ 999 mls/hr 12/09/24 10:04 Albutein IVPB 01/08/25 10:03 Q10M PRN HYPOTENSION Dextrose 1,000 mls @ 100 mls/hr 12/09/24 15:51 Dextrose 5% 1,000 Ml IVPB PRN PRN Hypoglycemia Protocol Levofloxacin/Dextrose 500 mg in 100 mls @ 100 mls/hr 12/11/24 16:00 12/11/24 16:10 Levaquin 500 Mg/D5w 100 Ml IVPB Infused Q48H DAVID Infusion Insulin Aspart 3 - 6 units 12/09/24 17:00 12/12/24 13:15 Insulin Aspart (*Bkc) 100 Units/Ml SUB-Q 4 units TIDWM DAVID Administration Protocol Insulin Aspart 1 - 3 units 12/09/24 21:00 12/11/24 21:36 Insulin Aspart (*Bkc) 100 Units/Ml SUB-Q 3 units HS DAVID Administration Protocol Ondansetron HCl 4 mg 12/09/24 09:26 Ondansetron Inj 4 Mg/2 Ml Vial IV PUSH Q4H PRN Nausea Oseltamivir Phosphate 30 mg 12/10/24 14:14 12/11/24 20:20 Oseltamivir Phosphate 30 Mg Capsule PO 12/13/24 23:59 30 mg PRN PRN Administration DIALYSIS Prednisone 40 mg 12/10/24 08:00 12/12/24 09:51 Prednisone 20 Mg Tablet PO 40 mg DAILY@0800 DAVID Administration Fluticasone/Salmeterol 2 puff 12/09/24 20:00 12/12/24 09:30 Fluticasone/Salmeterol 115-21 Mcg Inhaler 1 Puff INHALATION Not Given Q12HRT [facility] Radiology Results: ITS Impressions Chest X-Ray 12/12/24 06:00 Impression: Central congestive change and possible minimal interstitial edema. Stable cardiomegaly, status post median sternotomy with loop recorder. Labs Labs: Laboratory Tests 12/12/24 07:07 12/12/24 07:07 Calcium 10.3 H Magnesium 2.0 Total Bilirubin 0.5 AST 23 ALT 40 Alkaline Phosphatase 70 Total Protein 7.0 Albumin 3.9
[2024-12-12] MEDS: OSELTAMIVIR PHOSPHATE 30 MG CAPSULE PO (13:15)
[2024-12-12 13:48] VITALS: PULSE 96; RESP 18; O2SAT 100
[2024-12-12 14:00] VITALS: BP 163/93; PULSE 81; RESP 18; TEMP 36.2; O2SAT 97
--- NOTE | 2024-12-12 15:21 | PCRCNOTE ---
Pt going SNF, no Home O2 eval needed, [facility] staff can titrate O2 as needed at facility.
--- NOTE | 2024-12-12 15:59 | PM.DS ---
DS: Admitting Diagnosis Discharge Date 12/12/24 Admitting Diagnosis Shortness of breath DS: Discharge Diagnosis Discharge Diagnosis (1) Acute exacerbation of CHF (congestive heart failure): Code(s): I50.9 - Heart failure, unspecified Status: Acute (2) End-stage renal disease on hemodialysis: Code(s): N18.6 - End stage renal disease; Z99.2 - Dependence on renal dialysis Status: Acute (3) Acute respiratory failure with hypoxia: Code(s): J96.01 - Acute respiratory failure with hypoxia Status: Acute DS: Summary Hospital Course Hospital Course: 79-year-old male past medical history of COPD, coronary artery disease, anemia, type 2 diabetes who presented to the ER on account of shortness of breath. Patient reported he was the dialysis center for his regular dialysis when he was noted to be short of breath and was sent to the ER for which care. Reported he has been having shortness of breath within the past 3 days. He leg swelling. On room and baseline. Denies any chest pain, nausea vomiting abdominal pain no diarrhea no dysuria no focal symptoms. Patient was seen after dialysis however he was still on 2 L oxygen. ER evaluation notable for blood pressure 109/56, labs notable for hemoglobin 9.4, potassium 5 point focal BUN 63, creatinine 0.6, initial troponin 0.195 repeat was 0.232. EKG showed atrial fibrillation no acute ST-T changes. Chest x-ray showed mild opacity left lung zone which could represent atelectasis versus pneumonia. With this very small bilateral pleural effusions. Patient was started on Oxygen from Pneumonia and bilateral pleural effusions, started Levaquin and Dialysis. Also Tamiflu for FLu. patient eventually weaned off of oxygen. Elevated troponin was evaluated by cardiology and noted it was demand ischemia from FLu. Patient also managed for COPD exacerbation with bronchodilators and Steroids. Discharged on Combivent and Spiriva. He continued dialysis here with nephrology and will continue outpatient dialysis with nephrology F/u with PCP in 3-5 days F/u with nephrology Time Spent with Patient Time attestation: Total time spent providing and/or coordinating discharge services: DS: Data Data Completed and Pending Labs on day of discharge: Labs from last 24 hours 12/12/24 12/12/24 12/12/24 11:57 07:45 07:07 WBC 6.3 RBC 3.57 L Hgb 9.8 L Hct 33.5 L MCV 93.8 MCH 27.5 MCHC 29.3 L RDW 17.4 H Plt Count 242 MPV 10.5 H Immature Gran % (Auto) 1.7 H Neut % (Auto) 78.9 H Lymph % (Auto) 9.2 L [place] % (Auto) 10.0 H Eos % (Auto) 0.0 Baso % (Auto) 0.2 Lymph # (Auto) 0.58 L [place] # (Auto) 0.6 Eos # (Auto) 0.0 Baso # (Auto) 0.0 Abs Immat Gran (auto) 0.11 H Absolute Neuts (auto) 5.0 Absolute Nucleated RBC 0.030 H Band Neutrophils % Not Reportable Nucleated RBC % 0.5 H Platelet Estimate Adequate Hypochromasia 1+ Schistocytes Rare Sodium 130 L Potassium 5.2 H Chloride 90 L Carbon Dioxide 24 Anion Gap 16 H BUN 47 H Creatinine 5.11 H Estim Creat Clear Calc 11 Estimated GFR 11 L Glucose 208 H POC Capillary Glucose 261 H 208 H Calcium 10.3 H Magnesium 2.0 Total Bilirubin 0.5 AST 23 ALT 40 Alkaline Phosphatase 70 Total Protein 7.0 Albumin 3.9 12/11/24 12/11/24 21:27 16:44 WBC RBC Hgb Hct MCV MCH MCHC RDW Plt Count MPV Immature Gran % (Auto) Neut % (Auto) Lymph % (Auto) [place] % (Auto) Eos % (Auto) Baso % (Auto) Lymph # (Auto) [place] # (Auto) Eos # (Auto) Baso # (Auto) Abs Immat Gran (auto) Absolute Neuts (auto) Absolute Nucleated RBC Band Neutrophils % Nucleated RBC % Platelet Estimate Hypochromasia Schistocytes Sodium Potassium Chloride Carbon Dioxide Anion Gap BUN Creatinine Estim Creat Clear Calc Estimated GFR Glucose POC Capillary Glucose 363 H 344 H Calcium Magnesium Total Bilirubin AST ALT Alkaline Phosphatase Total Protein Albumin Preliminary micro results at discharge 12/09/24 18:44 Blood Culture - Preliminary Blood 12/09/24 18:54 Blood Culture - Preliminary Blood Discharge Plan Discharge Attending physician on discharge: Shefali Giordano Consulting providers: Martina Booth; Curt Grady Discharging Clinician: Shefali Giordano Anticipated Discharge Date/Time: 12/12/24 15:52 Patient Disposition: SNF Activity: as tolerated Diet: heart healthy Patient Language: [place] Stand Alone Forms: General Discharge Information Follow-up/Referrals: Martina Booth MD [Physician] - (F/u with nephrology as instructed ) Radha Carrion MD [Primary Care Provider] - (F/u with PCP in 3-5 days ) Curt Grady MD [Physician] - (F/u [facility] cardiology as instructed ) Discharge Medications: New Combivent Respimat 20-100 mcg/actuation mist 1 puff inhalation QID PRN (Reason: shortness of breath or wheezing) Qty: 4 3RF Rx Instructions: space evenly during waking hours Spiriva Respimat 2.5 mcg/actuation mist 2 inh inhalation QAM Qty: 4 1RF levofloxacin 500 mg tablet 500 mg PO DAILY 2 Days Qty: 1 0RF Continued carvedilol 25 mg tablet 25 mg PO BID aspirin 81 mg tablet,delayed release (DR/EC) 81 mg PO DAILY losartan 100 mg tablet 100 mg PO PRN Trulicity 1.5 mg/0.5 mL pen injector 1.5 mg subcut WEEKLY Rx Instructions: takes on Tuesdays insulin lispro 100 unit/mL insulin pen 4 unit subcut .TIDAC loratadine [Claritin] 10 mg tablet 10 mg PO PRN insulin glargine [Lantus Solostar U-100 Insulin] 100 unit/mL (3 mL) insulin pen 6 unit subcut DAILY tamsulosin 0.4 mg capsule 0.4 mg PO QHS cyclobenzaprine 10 mg tablet 10 mg PO TID PRN (Reason: muscle spasm) Qty: 30 0RF amlodipine 10 mg tablet 10 mg PO DAILY sevelamer HCl 800 mg tablet 3,200 mg PO TID cinacalcet 90 mg PO DAILY Date of admission: 12/09/24 09:27 Primary Care Provider: Radha Carrion Admitting Provider: Shefali Giordano Attending physician on admission: Shefali Giordano Condition: Stable
== END 2024-12-12 16:43 | DRG 291 ==
LOC: ANHED 09:24 → ANH3MEDSUR 10:07
PROVIDERS: Internal Medicine Nephrology; Physician Assistant; Admitting Provider Internal Medicine; Emergency Provider Family Medicine; PCP Family Medicine; Visit Provider Internal Medicine
DX: I13.2 Hypertensive heart and chronic kidney disease with heart failure and with stage 5 chronic kidney disease, or end stage renal disease (principal); I50.33 Acute on chronic diastolic (congestive) heart failure; N18.6 End stage renal disease; J10.00 Influenza due to other identified influenza virus with unspecified type of pneumonia; J96.01 Acute respiratory failure with hypoxia; J18.9 Pneumonia, unspecified organism; J44.1 Chronic obstructive pulmonary disease with (acute) exacerbation; I5A Non-ischemic myocardial injury (non-traumatic); Z99.2 Dependence on renal dialysis; I25.10 Atherosclerotic heart disease of native coronary artery without angina pectoris; E11.22 Type 2 diabetes mellitus with diabetic chronic kidney disease; E11.51 Type 2 diabetes mellitus with diabetic peripheral angiopathy without gangrene; E55.9 Vitamin D deficiency, unspecified; E78.5 Hyperlipidemia, unspecified; N40.0 Benign prostatic hyperplasia without lower urinary tract symptoms; G47.33 Obstructive sleep apnea (adult) (pediatric); Z20.822 Contact with and (suspected) exposure to COVID-19; Z95.0 Presence of cardiac pacemaker; Z79.82 Long term (current) use of aspirin; Z79.4 Long term (current) use of insulin; Z95.1 Presence of aortocoronary bypass graft; Z87.891 Personal history of nicotine dependence; Z86.0101 Personal history of adenomatous and serrated colon polyps
CPT/HCPCS: 36415; 71045; 80053; 82948; 83735; 84484; 85025; 85610; 85730; 86706; 87040; 87340; 87637; 87641; 93005; 94640; 96374; 97161; 97165; 99285; A9270; G0257; J1644; J1815; J1956; J7030; J7512; Q5105

== ENCOUNTER 2024-12-20 08:08 | Inpatient (IN) | payer MEDICARE, OTHER, SELFPAY ==
[2024-12-20] VITALS (45 sets, daily range): BP systolic 114–178; BP diastolic 57–79; PULSE 84–129; RESP 15–33; TEMP 36.6–37.2; O2SAT 81–99; BMI 31.4
--- NOTE | ~2024-12-20 | XR_ITS ---
EXAMINATION: XR chest 1V portable DATE: 12/20/2024 09:06 INDICATION: Weakness TECHNIQUE: frontal view of the chest was obtained. COMPARISON: Chest radiograph dated 12/12/2024 FINDINGS: Pulmonary vascular congestion with mild increased interstitial pattern in the lower lung zones consis tent with mild pulmonary edema. Unchanged linear discoid atelectasis at the left midlung zone. No ple ural effusion or pneumothorax. Heart size is normal. Median sternotomy wires and mediastinal surgical clips are seen, likely from prior coronary artery bypass grafting. Left pectoral implantable teletypesetter monitor. Left subclavian vascular stent. IMPRESSION: 1. Pulmonary vascular congestion and mild pulmonary edema at the lung bases. Reviewed, dictated and finalized at location A. INSPECTOR
--- NOTE | ~2024-12-20 | CT_ITS ---
CT brain wo con Ordering provider: Raoul Wahl MD History: 79 years Male with . confusion, fall . Comparison: None. Technique: CT of the head without contrast. Radiation reduction technique utilized. The dose-length product was 681 mGy-cm. FINDINGS: BRAIN PARENCHYMA AND CSF SPACES: Mild leukoaraiosis and diffuse cortical atrophy. Mild atheromatous d isease. Old lacunar infarcts in the basal ganglia. No midline shift, mass effect or hemorrhage. The brain parenchyma and CSF spaces are otherwise normal. VISUALIZED PARANASAL SINUSES: Right maxillary mild sigmoid the sinus disease. MASTOIDS: Well aerated. BONES: The bones appear intact. SOFT TISSUES: Visualized nasopharynx is normal. Superficial soft tissues are normal. IMPRESSION: No acute intracranial findings. Reviewed, dictated and finalized at location A. ONAL BRANCH MANAGER
--- NOTE | ~2024-12-20 | XR_ITS ---
Portable chest x-ray Comparison: 12/20/2024 Clinical History: Hypoxia Findings: There is central congestive change and probable mild central pulmonary edema. Cardiomedia stinal silhouette is stable, with loop recorder. Bones and soft tissues are unremarkable. Impression: Central congestive change and possible minimal central pulmonary edema. Stable cardiomegaly, with loop recorder. Reviewed, dictated and finalized at location . PHONE INFORMATION SUPERVISOR Impression: Central congestive change and possible minimal central pulmonary edema. Stable cardiomegaly, with loop recorder.
--- NOTE | 2024-12-20 08:11 | ECG_ITS ---
Test Date: 2024-12-20 08:12:42 Measurements Intervals [place] Rate: 103 P: 0 SC: 0 QRS: 219 QRSD: 139 T: -5 QT: 389 QTc: 511 Interpretive Statements ATRIAL FIBRILLATION WITH RAPID VENTRICULAR RESPONSE RIGHT BUNDLE BRANCH BLOCK LEFT POSTERIOR FASCICULAR BLOCK BASELINE ARTIFACT- V1-V6 ABNORMAL ECG Compared to ECG 12/09/2024 07:36:39 HEART RATE HAS INCREASED Electronically Signed On 12-20-2024 09:27:31 HYDROELECTRIC PRODUCTION TECHNICIAN by Chiki Parra D.O.
--- NOTE | 2024-12-20 08:33 | PC.NURSE ---
2 ED RNs attempted PIV access without success. Vascular access called.
[2024-12-20 09:21] LABS: Basophils Percent Auto 0.3 % (0.2-1.2); Eosinophils Absolute Auto 0.1 K/mm3 (0-0.3); Eosinophils Percent Auto 0.5 % (0-4.4); Hemoglobin 10.1 g/dL (14.0-18.0); Immature Granulocyte Percent A 0.8 % (0-0.5); Lymphocytes Absolute Auto 0.06 K/mm3 (0.9-3.2); Lymphocytes Percent Auto 0.5 % (18.3-44.2); Mean Corpuscular HGB Conc 30.6 g/dl (32-36); Mean Corpuscular Hemoglobin 26.7 pg (26-34); Mean Corpuscular Volume 87.3 fl (80-100); Mean Platelet Volume 10.8 fl (7.4-10.4); Monocytes Absolute Auto 0.5 K/mm3 (0.1-0.6); Monocytes Percent Auto 3.6 % (2.6-8.5); Neutrophils Absolute Auto 12.5 K/mm3 (1.3-6.7); Neutrophils Percent Auto 94.3 % (45.5-73.1); Platelet Count Result 238 k/mm3 (150-375); Red Blood Count 3.78 M/mm3 (4.6-6.20); Red Cell Distribution Width 17.8 % (11.5-14.5); White Blood Count 13.2 K/mm3 (4.5-10.0)
--- OUTSIDE RECORDS SUMMARY | 2024-12-20 09:34 | XMS_ITS ---
Author Organization [facility] Address [address] [place] [id number] Care Team Providers Care [employer] Supervisor Name Role Phone Efren Hoyos MD Unavailable Dank Hicks MD Unavailable [phone] Mariza Carrion MD Primary Care Provider Dialysis Access Sites Type Status Location Placement Date Removal Da te AV fistula Active Left Upper Arm - Anterior AV fistula Inactive 10/23/2024 Procedures Procedure Name Priority Date/Time Associated Diagnosis Comments POCT GLUCOSE Routine 11/24/2024 10:01 AM RESOURCE CONSERVATION SPECIALIST Type 2 diabetes mellitus with hyperglycemia, with long-term current use of insulin (CMS/[facility]) POCT HEMOGLOBIN A1C Routine 11/24/2024 1 0:01 AM RESOURCE CONSERVATION SPECIALIST Type 2 diabetes mellitus with hyperglycemia, with long-term current use of insulin (CMS/[facility]) DEVICE CHECK - IN OFFICE Routine 11/05/2024 1:22 PM RESOURCE CONSERVATION SPECIALIST Cardiac pacemaker in situ Asystole (CMS/HCC) (HCC) Syncope and collapse Symptomatic bradycardia POCT GLUCOSE DEVICE Routine 10/25/2024 1 2:56 PM RESOURCE CONSERVATION SPECIALIST POCT GLUCOSE DEVICE Routine 10/25/2024 8 :10 AM RESOURCE CONSERVATION SPECIALIST POCT GLUCOSE DEVICE Routine 10/25/2024 7 :43 AM RESOURCE CONSERVATION SPECIALIST EGFR Routine 10/25/2024 5:48 AM RESOURCE CONSERVATION SPECIALIST BASIC METABOLIC PANEL Routine 10/25/2024 5:48 AM RESOURCE CONSERVATION SPECIALIST CBC WITHOUT DIFFERENTIAL Routine 10/25/2024 5:48 AM RESOURCE CONSERVATION SPECIALIST POCT GLUCOSE DEVICE Routine 10/25/2024 2 :25 AM RESOURCE CONSERVATION SPECIALIST POCT GLUCOSE DEVICE Routine 10/24/2024 8 :31 PM RESOURCE CONSERVATION SPECIALIST POCT GLUCOSE DEVICE Routine 10/24/2024 4 :33 PM RESOURCE CONSERVATION SPECIALIST POCT GLUCOSE DEVICE Routine 10/24/2024 2 :03 PM RESOURCE CONSERVATION SPECIALIST LEADLESS, SINGLE CHAMBER PACEMAKER (PPM) INSERTION Routine 10/24/2024 1:36 PM RESOURCE CONSERVATION SPECIALIST Syncope and collapse POCT GLUCOSE DEVICE Routine 10/24/2024 1 1:26 AM RESOURCE CONSERVATION SPECIALIST POCT GLUCOSE DEVICE Routine 10/24/2024 7 :30 AM RESOURCE CONSERVATION SPECIALIST TSH Routine 10/24/2024 5:12 AM RESOURCE CONSERVATION SPECIALIST EGFR Routine 10/24/2024 4:59 AM RESOURCE CONSERVATION SPECIALIST BASIC METABOLIC PANEL Routine 10/24/2024 4:59 AM RESOURCE CONSERVATION SPECIALIST CBC WITHOUT DIFFERENTIAL Routine 10/24/2024 4:59 AM RESOURCE CONSERVATION SPECIALIST POCT GLUCOSE DEVICE Routine 10/24/2024 2 :39 AM RESOURCE CONSERVATION SPECIALIST POCT GLUCOSE DEVICE Routine 10/23/2024 1 0:25 PM RESOURCE CONSERVATION SPECIALIST POCT GLUCOSE DEVICE Routine 10/23/2024 8 :04 PM RESOURCE CONSERVATION SPECIALIST POCT GLUCOSE DEVICE Routine 10/23/2024 5 :42 PM RESOURCE CONSERVATION SPECIALIST HEPATITIS B SURFACE ANTIBODY (IMMUNE STATUS) Routine 10/23/2024 2:45 PM RESOURCE CONSERVATION SPECIALIST HEPATITIS PANEL, ACUTE Routine 10/23/2024 2:45 PM RESOURCE CONSERVATION SPECIALIST POCT GLUCOSE DEVICE Routine 10/23/2024 1 2:57 PM RESOURCE CONSERVATION SPECIALIST HEMODIALYSIS Routine 10/23/2024 9:13 AM RESOURCE CONSERVATION SPECIALIST POCT GLUCOSE DEVICE Routine 10/23/2024 7 :47 AM RESOURCE CONSERVATION SPECIALIST EGFR Routine 10/23/2024 5:27 AM RESOURCE CONSERVATION SPECIALIST DIFFERENTIAL AUTO Routine 10/23/2024 5:2 7 AM RESOURCE CONSERVATION SPECIALIST MAGNESIUM Routine 10/23/2024 5:27 AM RESOURCE CONSERVATION SPECIALIST PHOSPHORUS Routine 10/23/2024 5:27 AM RESOURCE CONSERVATION SPECIALIST COMPREHENSIVE METABOLIC PANEL Routine 10/23/2024 5:27 AM RESOURCE CONSERVATION SPECIALIST CBC WITH AUTO DIFFERENTIAL Routine 10/23/2024 5:27 AM RESOURCE CONSERVATION SPECIALIST POCT GLUCOSE DEVICE Routine 10/23/2024 3 :04 AM RESOURCE CONSERVATION SPECIALIST POCT GLUCOSE DEVICE Routine 10/22/2024 1 0:42 PM RESOURCE CONSERVATION SPECIALIST POCT GLUCOSE DEVICE Routine 10/22/2024 8 :42 PM RESOURCE CONSERVATION SPECIALIST HM DIABETES EYE EXAM Routine 08/13/2024 9:40 [...] Read Routine (OP Routine) 12/05/2021 11:53 AM RESOURCE CONSERVATION SPECIALIST End stage renal disease (CMS/HCC) ([facility]) from Last 3 Months or Most Recently [...] hyperglycemia, with long-term current use of insulin ([facility]) Use to test glucose 5 times daily 450 each 2 04/03/20 18 Active lancets (freestyle) 28 gauge miscIndications:T ype 2 diabetes mellitus with hyperglycemia, with long-term current use of insulin ([facility]) Use to test glucose 5 [...] hyperglycemia, with long-term current use of insulin ([facility]) Change sensor every 14 days [...] hyperglycemia, with long-term current use of insulin ([facility]) Use pads 5 times daily [...] hyperglycemia, with long-term current use of insulin ([facility]) Inject 0.5ML(1.5MG total) under the [...] hyperglycemia, with long-term current use of insulin ([facility]) Use to inject insulin 4x/day [...] without lower urinary tract symptoms 10/23/2024 Asystole ([facility]) 10/23/2024 Syncope and collapse 10/22/2024 ESRD on hemodialysis ([facility]) 12/09/2019 Assessment & Plan (09/03/2023 9:28 AM RESOURCE CONSERVATION SPECIALIST): Chronic problem. [facility] [place]: //Saturdays. LUE fistula. Assessment & Plan (03/05/2023 9:59 AM CDT): Chronic problem. HD [facility] in [place]: //Saturdays. LUE fistula. ESRD on dialysis 05/22/2019 Hyperlipidemia associated with type 2 diabetes fouzia victoria 05/22/2019 Assessment & Plan (11/24/2024 10:10 AM RESOURCE CONSERVATION SPECIALIST): Chronic problem. Controlled on current Atorvastatin 20mg. Last lipid panel: 03/03/24 LDL=33, TG=75. Assessment & Plan (03/03/2024 8:45 AM CDT): Chronic problem. Controlled on current Atorvastatin 20mg. Last lipid panel: 03/05/23 LDL=57, HR=258. Will update labs today. Does not mychart. Verified phone #/address to contact re: results. Assessment & Plan (09/03/2023 9:28 AM RESOURCE CONSERVATION SPECIALIST): Chronic problem. Controlled on current Atorvastatin 20mg. Last lipid panel: 03/05/23 LDL=57, VV=434. Assessment & Plan (03/05/2023 9:53 AM CDT): Chronic problem. Controlled on current Atorvastatin 20mg. Last lipid panel: 12/05/21 LDL=36, UB=519. Will update labs today. Verified phone #/address to contact re: results. 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 Continue Assessment & Plan (02/08/2018 11:01 AM CDT): Importance of following diet and exercising discussed. Hypertension associated with diabetes 05/22/2017 Assessment & Plan (11/24/2024 10:11 AM RESOURCE CONSERVATION SPECIALIST): Chronic problem. Controlled on current losartan 100mg daily, amlodipine 10mg daily Assessment & Plan (03/03/2024 8:45 AM CDT): Chronic problem. BP elevated upon arrival. Controlled on current Carvedilol 25mg bid, losartan 100mg daily. No changes at this time. Will update labs today. Does not mychart. Verified phone #/address to contact re: results. Assessment & Plan (09/03/2023 9:28 AM RESOURCE CONSERVATION SPECIALIST): Chronic problem. BP elevated upon arrival. Controlled [...] renal Assessment & Plan (10/24/2018 12:57 PM RESOURCE CONSERVATION SPECIALIST): Controlled. Continue current medication plan and follow up with cardiology Assessment & Plan (06/18/2018 2:30 PM CDT): BP controlled on current medication plan. Continue follow up with nephrology Assessment & Plan (02/08/2018 11:00 AM CDT): Continue same medication Assessment & Plan (12/11/2017 10:24 AM RESOURCE CONSERVATION SPECIALIST): Goal blood pressure is less than 140/85 [...] mellitus Assessment & Plan (11/24/2024 10:16 AM RESOURCE CONSERVATION SPECIALIST): Chronic problem, controlled on current regimen. 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 Assessment & Plan (03/03/2024 9:19 AM [...] daily for skin breakdown and infection (sees [employer] or [employer] regularly). Assessment & Plan (09/03/2023 9:27 AM RESOURCE CONSERVATION SPECIALIST): Chronic problem, controlled on current regimen. 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 Assessment & Plan (03/05/2023 10:13 AM CDT): Chronic problem, controlled on current regimen. Current medications: Trulicity 1.5mg weekly Lantus 6 units every morning Humalog 4 units before meals For sugars over 160: take 6 units For sugars over 200: take 8 units Seen by [facility] every 4-5 mos; letter sent to get [...] daily for skin breakdown and infection (sees [employer] or [employer] regularly). Will update labs today. Verified phone #/address to contact re: results. Assessment & Plan (11/02/2022 2:43 PM RESOURCE CONSERVATION SPECIALIST): Well controlled, with risk of hypoglycemia Insuli [...] Ross Assessment & Plan (09/07/2020 2:26 PM RESOURCE CONSERVATION SPECIALIST): Hba1c was Lab Results Component Value Date [...] Trulicity. 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 Assessment & Plan (10/24/2018 1:00 PM RESOURCE CONSERVATION SPECIALIST): Stable BG pattern 100-140 reported since last adjustment to plan. No change today. BG goals reviewed. Advised to lower Lantus by 2 units if FBG are < 100 x 2 days/wk. For planned activity, reduce Humalog dose by 1/2 at preceding meal. Assessment & Plan (09/19/2018 11:11 AM RESOURCE CONSERVATION SPECIALIST): Your Hba1c today was: Lab Results Component [...] time. Assessment & Plan (12/11/2017 10:47 AM RESOURCE CONSERVATION SPECIALIST): Hba1c was .5.4 Today, 1800 calorie, consistent [...] Lantus by 5 more unit. Stay on [facility] Assessment & Plan (05/22/2017 11:37 AM CDT): [...] drink = 0.6 oz pur e alcohol) [facility] [employer] Answer Date Recorded In the past 12 months has [employer], [employer], oil, or water [employer] threatened to shut off services in your [...] week 10/23/2024 How often do you attend [facility] or voodoo services? Never 10/23/2024 Do you belong to any clubs o r organizations such as advent groups, unions, fraternal or athletic groups, or [...] any time in the past 12 m [facility], were you homeless or living in a usp (including now)? No 10/23/2024 Personal Safety Answer Date Recorded Have you ever been in or are you currently in a harmful physical or emotional relationship or is someone making you feel afraid or unsafe? Denies 10/22/2024 Sex and Gender Information Value Date Recorded Sex Assigned at Not on file Legal Sex Male 7:27 PM RESOURCE CONSERVATION SPECIALIST Gender Identity Not on file Sexual Orientation Not on file Last Filed Vital Signs Vital Sign Reading Time Taken Comments Blood Pressure 102/58 11/24/2024 9:58 AM RESOURCE CONSERVATION SPECIALIST Pulse 75 11/24/2024 9:58 AM RESOURCE CONSERVATION SPECIALIST Temperature 36.3 C (97.3 F) 10/25/2024 2:15 PM RESOURCE CONSERVATION SPECIALIST Respiratory Rate 20 11/24/2024 9:58 AM RESOURCE CONSERVATION SPECIALIST Oxygen Saturation 100% 10/25/2024 1:15 PM RESOURCE CONSERVATION SPECIALIST Inhaled Oxygen Concentration - - Weight 91.3 kg (201 lb 4.5 oz) 10/22/2024 8:29 P M RESOURCE CONSERVATION SPECIALIST Height 170.2 cm (5' 7.01 ) 11/24/2024 9:58 AM CS T Body Mass Index 31.52 10/22/2024 8:29 PM RESOURCE CONSERVATION SPECIALIST Results * POCT hemoglobin A1c (11/24/2024 10:01 AM RESOURCE CONSERVATION SPECIALIST) Hemoglobin A1C, POC 4.9 4.0 - 5.6 % Blood 11/24/2024 10:0 1 AM RESOURCE CONSERVATION SPECIALIST us Berthageno Pinto ASSOCIATE PROFESSOR OF MUSIC POINT OF CARE TEST ORDERA BLES Final Result * (ABNORMAL) POCT glucose (11/24/2024 10:01 AM RESOURCE CONSERVATION SPECIALIST) Glucose Blood, POC 131 mg/dL Blood 11/24/2024 10:0 1 AM RESOURCE CONSERVATION SPECIALIST us Bertha Pinto ASSOCIATE PROFESSOR OF MUSIC POINT OF CARE TEST ORDERA BLES Final Result * DEVICE CHECK - IN OFFICE (11/05/2024 1:22 PM RESOURCE CONSERVATION SPECIALIST) Anatomical Region Laterality Modality Other Narrative 11/13/2024 2:43 PM RESOURCE CONSERVATION SPECIALIST Medtronic Micra AV2 Pacemaker. Dx; Symptomatic Bradycardia, [...] Result * POCT glucose (10/25/2024 12:56 PM RESOURCE CONSERVATION SPECIALIST) Glucose, POC 74 70 - 199 mg/dL Blood 10/25/2024 12:5 6 PM RESOURCE CONSERVATION SPECIALIST 10/25/2024 12:56 PM RESOURCE CONSERVATION SPECIALIST Nabeel Paez LAB POCT ORDERABLES - DEVICE Final Result Performing Organization Address [facility] de Phone Number NIDIA [address] [employer] [place] [address] * POCT glucose (10/25/2024 8:10 AM RESOURCE CONSERVATION SPECIALIST) Glucose, POC 100 70 - 199 mg/dL Blood 10/25/2024 8:10 AM RESOURCE CONSERVATION SPECIALIST 10/25/2024 8:10 AM RESOURCE CONSERVATION SPECIALIST Nabeel Paez [facility] POCT ORDERABLES - DEVICE Final Result Performing Organization Address [facility] [place] [address] [address] [employer] [place] [address] * POCT glucose (10/25/2024 7:43 AM RESOURCE CONSERVATION SPECIALIST) Glucose, POC 78 70 - 199 mg/dL Blood 10/25/2024 7:43 AM RESOURCE CONSERVATION SPECIALIST 10/25/2024 7:43 AM RESOURCE CONSERVATION SPECIALIST Nabeel Paez LAB POCT ORDERABLES - DEVICE Final Result Performing Organization Address [facility] Co de Phone Number NIDIA COTE [address] Department [place] [address] * (ABNORMAL) eGFR (10/25/2024 5:48 AM RESOURCE CONSERVATION SPECIALIST) Pathologist [facility] eGFR 9(L) >=60 mL/min/1. 73 m2 Comment: [...] last reviewed 2021. Blood 10/25/2024 5:48 AM RESOURCE CONSERVATION SPECIALIST 10/25/2024 6:03 AM RESOURCE CONSERVATION SPECIALIST us Raisa Scherer NP LAB BLOOD ORDERABLES Jeaneth mari Result ALYSSAALANNAH COTE [address] Department [place] [address] * (ABNORMAL) CBC without differential (10/25/2024 5:48 AM RESOURCE CONSERVATION SPECIALIST) WBC 4.6 3.8 - 9.9 K/cumm Hgb 8.3(L) 13.0 - 17.5 g/dL [facility] Hct 28.1(L) 38.9 - 50.3 % [facility] Plt 187 150 - 400 K/cumm [facility] MPV 10.6 9.1 - 12.3 fL [facility] RBC 2.82(L) 4.30 - 5.80 M/cumm [facility] MCV 99.6(H) 81.3 - 96.4 fL [facility] MCH 29.4 27.1 - 33.3 pg [facility] MCHC 29.5(L) 32.3 - 35.7 g/dL [facility] RDW CV 16.3(H) 11.1 - 14.9 % [facility] RDW SD 60.4(H) 35.7 - 48.1 fL [facility] NRBC abs 0.00 0.00 - 0.01 K/cumm [facility] CH Blood 10/25/2024 5:48 AM RESOURCE CONSERVATION SPECIALIST 10/25/2024 6:03 AM RESOURCE CONSERVATION SPECIALIST us Raisa Scherer NP LAB BLOOD ORDERABLES Jeaneth mari Result NIDIA [address] Department [place] [address] * (ABNORMAL) Basic metabolic panel (10/25/2024 5:48 AM RESOURCE CONSERVATION SPECIALIST) Sodium 135 135 - 145 mmol/L Potassium, pl 4.3 3.3 - 4.9 mmol/L [facility] Chloride 93(L) 97 - 110 mmol/L [facility] CO2 27 22 - 32 mmol/L [facility] Anion gap 15 2 - 15 mmol/L [facility] BUN 30(H) 6 - 25 mg/dL [facility] Creatinine 5.94(H) 0.80 - 1.30 mg/dL [facility] Glucose 76 70 - 199 mg/dL [facility] Comment: Interpretive Data Fasting glucose [...] 10.3 mg/dL [facility] Blood 10/25/2024 5:48 AM RESOURCE CONSERVATION SPECIALIST 10/25/2024 6:03 AM RESOURCE CONSERVATION SPECIALIST Raisa Scherer ASSOCIATE PROFESSOR OF MUSIC LAB BLOOD ORDERABLES Jeaneth l Result Performing Organization Address [facility] Co de Phone Number NIDIA COTE [address] [facility] [place] [address] * POCT glucose (10/25/2024 2:25 AM RESOURCE CONSERVATION SPECIALIST) Glucose, POC 81 70 - 199 mg/dL Blood 10/25/2024 2:25 AM RESOURCE CONSERVATION SPECIALIST 10/25/2024 2:25 AM RESOURCE CONSERVATION SPECIALIST Nabeel Paez DO [facility] POCT ORDERABLES - DEVICE Final Result Performing Organization Address [facility] de Phone Number ALYSSAALANNAH COTE [address] [facility] [place] [address] * POCT glucose (10/24/2024 8:31 PM RESOURCE CONSERVATION SPECIALIST) Glucose, POC 120 70 - 199 mg/dL Blood 10/24/2024 8:31 PM RESOURCE CONSERVATION SPECIALIST 10/24/2024 8:31 PM RESOURCE CONSERVATION SPECIALIST Nabeel HERRING POCT ORDERABLES - DEVICE Final Result Performing Organization Address [facility] de Phone Number NIDIA [address]OTE [address] [place] [address] * POCT glucose (10/24/2024 4:33 PM RESOURCE CONSERVATION SPECIALIST) Glucose, POC 85 70 - 199 mg/dL Blood 10/24/2024 4:33 PM RESOURCE CONSERVATION SPECIALIST 10/24/2024 4:33 PM RESOURCE CONSERVATION SPECIALIST Nabeel Paez DO [facility] POCT ORDERABLES - DEVICE Final Result Performing Organization Address [facility] de Phone Number ALYSSAALANNAH COTE [address] [place] [address] * POCT glucose (10/24/2024 2:03 PM RESOURCE CONSERVATION SPECIALIST) Glucose, POC 83 70 - 199 mg/dL Blood 10/24/2024 2:03 PM RESOURCE CONSERVATION SPECIALIST 10/24/2024 2:03 PM RESOURCE CONSERVATION SPECIALIST Nabeel [facility] POCT ORDERABLES - DEVICE Final Result Performing Organization Address [facility] Co de Phone Number [facility] [address] [facility] [place] [address] * POCT glucose (10/24/2024 11:26 AM RESOURCE CONSERVATION SPECIALIST) Glucose, POC 85 70 - 199 mg/dL Blood 10/24/2024 11:2 6 AM RESOURCE CONSERVATION SPECIALIST 10/24/2024 11:26 AM RESOURCE CONSERVATION SPECIALIST [facility] POCT ORDERABLES - DEVICE Final Result Performing Organization Address [facility] de Phone Number ALYSSAALANNAH [address] [facility] [place] [address] * POCT glucose (10/24/2024 7:30 AM RESOURCE CONSERVATION SPECIALIST) Glucose, POC 94 70 - 199 mg/dL Blood 10/24/2024 7:30 AM RESOURCE CONSERVATION SPECIALIST 10/24/2024 7:30 AM RESOURCE CONSERVATION SPECIALIST Nabeel [facility] POCT ORDERABLES - DEVICE Final Result Performing Organization Address [facility] Co de Phone Number [facility] [address] [place] [address] * TSH (10/24/2024 5:12 AM RESOURCE CONSERVATION SPECIALIST) Thyroid Stimulating Hormone 0.48 0.30 - 4.20 mcIUnit/mL Blood 10/24/2024 5:12 AM RESOURCE CONSERVATION SPECIALIST 10/24/2024 5:23 AM RESOURCE CONSERVATION SPECIALIST Sherrill Christianson MD LAB BLOOD ORDERABLES Final Result Performing Organization Address [facility] Co de Phone Number NIDIA COTE [address] Department [place] [address] * (ABNORMAL) eGFR (10/24/2024 4:59 AM RESOURCE CONSERVATION SPECIALIST) eGFR 13(L) >=60 mL/min/1. 73 m2 Comment: [...] last reviewed 2021. Blood 10/24/2024 4:59 AM RESOURCE CONSERVATION SPECIALIST 10/24/2024 5:23 AM RESOURCE CONSERVATION SPECIALIST us Raisa Scherer ASSOCIATE PROFESSOR OF MUSIC LAB BLOOD ORDERABLES Jeaneth l Result Performing Organization Address City/[facility]/ZIP Co de Phone Number NIDIA COTE [address] Department [place] [address] * (ABNORMAL) CBC without differential (10/24/2024 4:59 AM RESOURCE CONSERVATION SPECIALIST) WBC 5.1 3.8 - 9.9 K/cumm Hgb 8.9(L) 13.0 - 17.5 g/dL [facility] Hct 29.9(L) 38.9 - 50.3 % [facility] Plt 188 150 - 400 K/cumm [facility] MPV 10.2 9.1 - 12.3 fL [facility] RBC 2.93(L) 4.30 - 5.80 M/cumm [facility] MCV 102.0(H) 81.3 - 96.4 fL [facility] MCH 30.4 27.1 - 33.3 pg [facility] MCHC 29.8(L) 32.3 - 35.7 g/dL [facility] CH RDW CV 16.8(H) 11.1 - 14.9 % [facility] RDW SD 62.6(H) 35.7 - 48.1 fL [facility] NRBC abs 0.00 0.00 - 0.01 K/cumm [facility] Blood 10/24/2024 4:59 AM RESOURCE CONSERVATION SPECIALIST 10/24/2024 5:20 AM RESOURCE CONSERVATION SPECIALIST us Raisa Scherer NP LAB BLOOD ORDERABLES Jeaneth mari Result [facility] [address] Department [place] [address] * (ABNORMAL) Basic metabolic panel (10/24/2024 4:59 AM RESOURCE CONSERVATION SPECIALIST) Sodium 136 135 - 145 mmol/L Potassium, pl 4.2 3.3 - 4.9 mmol/L [facility] Chloride 94(L) 97 - 110 mmol/L [facility] CO2 31 22 - 32 mmol/L [facility] Anion gap 11 2 - 15 mmol/L [facility] BUN 20 6 - 25 mg/dL [facility] Creatinine 4.30(H) 0.80 - 1.30 mg/dL [facility] Glucose 80 70 - 199 mg/dL [facility] Comment: Interpretive Data Fasting glucose >/= 126 [...] 10.3 mg/dL NIDIA Blood 10/24/2024 4:59 AM RESOURCE CONSERVATION SPECIALIST 10/24/2024 5:20 AM RESOURCE CONSERVATION SPECIALIST Raisa Scherer ASSOCIATE PROFESSOR OF MUSIC LAB BLOOD ORDERABLES Jeaneth l Result Performing Organization Address City/[facility] Co de Phone Number NIDIA [address] [place] [address] * POCT glucose (10/24/2024 2:39 AM RESOURCE CONSERVATION SPECIALIST) Glucose, POC 123 70 - 199 mg/dL Blood 10/24/2024 2:39 AM RESOURCE CONSERVATION SPECIALIST 10/24/2024 2:39 AM RESOURCE CONSERVATION SPECIALIST Nabeel Paez [facility] POCT ORDERABLES - DEVICE Final Result Performing Organization Address [facility] de Phone Number [facility] [address] [address] [facility] [place] [address] * POCT glucose (10/23/2024 10:25 PM RESOURCE CONSERVATION SPECIALIST) Glucose, POC 173 70 - 199 mg/dL Blood 10/23/2024 10:2 5 PM RESOURCE CONSERVATION SPECIALIST 10/23/2024 10:25 PM RESOURCE CONSERVATION SPECIALIST Nabeel Paez [facility] POCT ORDERABLES - DEVICE Final Result Performing Organization Address [facility] Co de Phone Number [facility] [address] [facility] [place] [address] * POCT glucose (10/23/2024 8:04 PM RESOURCE CONSERVATION SPECIALIST) Glucose, POC 70 70 - 199 mg/dL Blood 10/23/2024 8:04 PM RESOURCE CONSERVATION SPECIALIST 10/23/2024 8:04 PM RESOURCE CONSERVATION SPECIALIST [facility] POCT ORDERABLES - DEVICE Final Result Performing Organization Address City/[facility] Co de Phone Number NIDIA COTE [address] [address] [facility] [place] [address] * POCT glucose (10/23/2024 5:42 PM RESOURCE CONSERVATION SPECIALIST) Glucose, POC 90 70 - 199 mg/dL Blood 10/23/2024 5:42 PM RESOURCE CONSERVATION SPECIALIST 10/23/2024 5:42 PM RESOURCE CONSERVATION SPECIALIST Result [facility] Nabeel Paez [facility] POCT ORDERABLES - DEVICE Final Result Performing Organization Address [facility] de Phone Number NIDIA COTE [address] [address] [facility] [place] [address] * Hepatitis panel, acute Blood (10/23/2024 2:45 PM RESOURCE CONSERVATION SPECIALIST) Pathologist [facility] Hep A IgM Nonreactive Nonreactive Comment: Interpretive Data: If Hep A IgM Ab is reported as Equivocal, a new sample should be drawn in two weeks for testing. Current interpretive data was last revised on 20. Hep B core IgM Nonreactive Nonreactive [facility] Comment: Interpretive Data If HepB Core IgM Ab is reported as Equivocal, a new sample should be drawn in two weeks for testing. Current interpretive data was last revised on 20. Hep C Ab Nonreactive Nonreactive [facility] Comment: Interpretive Data Nonreactive: Antibodies to HCV [...] last revised on 2020. HepBsAg Nonreactive Nonreactive [facility] Blood 10/23/2024 2:45 PM RESOURCE CONSERVATION SPECIALIST 10/23/2024 2:46 PM RESOURCE CONSERVATION SPECIALIST Result [facility] Sherrill Christianson MD LAB MICROBIOLOGY - GENERAL ORDERABLES Final Result Performing Organization Address [facility] [place] [address] [address] [facility] [place] [address] * Hepatitis B surface antibody (immune status) Blood (10/23/2024 2:45 PM RESOURCE CONSERVATION SPECIALIST) HBsAb (immune status) Nonreactive Comment: Interpretive Data [...] revised on 20. Blood 10/23/2024 2:45 PM RESOURCE CONSERVATION SPECIALIST 10/23/2024 2:46 PM RESOURCE CONSERVATION SPECIALIST Sherrill Christianson MD LAB MICROBIOLOGY - GENERAL ORDERABLES Final Result Performing Organization Address [facility] [place] [address] [address] [place] [address] * (ABNORMAL) POCT glucose (10/23/2024 12:57 PM RESOURCE CONSERVATION SPECIALIST) Glucose, POC 69(L) 70 - 199 mg/dL Blood 10/23/2024 12:5 7 PM RESOURCE CONSERVATION SPECIALIST 10/23/2024 12:57 PM RESOURCE CONSERVATION SPECIALIST us Nabeel Paez DO LAB POCT ORDERABLES - DEVICE Final Result Performing Organization Address [facility] [place] [address] [address] [place] [address] * POCT glucose (10/23/2024 7:47 AM RESOURCE CONSERVATION SPECIALIST) Glucose, POC 81 70 - 199 mg/dL Blood 10/23/2024 7:47 AM RESOURCE CONSERVATION SPECIALIST 10/23/2024 7:47 AM RESOURCE CONSERVATION SPECIALIST us Sylvester Engel MD LAB POCT ORDERABLES - SALO CE Final Result Performing Organization Address [facility] Co de Phone Number NIDIA COTE [address] Department [place] [address] * (ABNORMAL) eGFR (10/23/2024 5:27 AM RESOURCE CONSERVATION SPECIALIST) eGFR 11(L) >=60 mL/min/1. 73 m2 Comment: [...] last reviewed 2021. Blood 10/23/2024 5:27 AM RESOURCE CONSERVATION SPECIALIST 10/23/2024 5:32 AM RESOURCE CONSERVATION SPECIALIST us Raisa Scherer ASSOCIATE PROFESSOR OF MUSIC LAB BLOOD ORDERABLES Jeaneth l Result Performing Organization Address City/[facility]/ZIP Co de Phone Number NIDIA COTE [address] Department [place] [address] * (ABNORMAL) Differential, auto (10/23/2024 5:27 AM RESOURCE CONSERVATION SPECIALIST) Neutrophil abs 4.1 1.5 - 6.5 K/cumm Imm gran abs 0.1 0.0 - 0.1 K/cumm [facility] Lymphocyte abs 0.4(L) 0.8 - 3.3 K/cumm [facility] Monocyte abs 0.7 0.2 - 0.8 K/cumm [facility] Eosinophil abs 0.1 0.0 - 0.5 K/cumm [facility] Basophil abs 0.0 0.0 - 0.1 K/cumm [facility] Neutrophil pct 76.5 % [facility] Comment: Interpretive Data Percent cell count reference ranges are not reported, since discordance with absolute values may lead to misinterpretation of CBC data. Current Interpretive Data was last revised on 2018. Imm gran pct 1.1 % [facility] Comment: Interpretive Data Percent cell count reference ranges are not reported, since discordance with absolute values may lead to misinterpretation of CBC data. Current Interpretive Data was last revised on 2018. Lymphocyte pct 7.9 % [facility] Comment: Interpretive Data Percent cell count reference ranges are not reported, since discordance with absolute values may lead to misinterpretation of CBC data. Current Interpretive Data was last revised on 2018. Monocyte pct 12.7 % [facility] Comment: Interpretive Data Percent cell count reference ranges are not reported, since discordance with absolute values may lead to misinterpretation of CBC data. Current Interpretive Data was last revised on 2018. Eosinophil pct 1.1 % [facility] Comment: Interpretive Data Percent cell count reference ranges are not reported, since discordance with absolute values may lead to misinterpretation of CBC data. Current Interpretive Data was last revised on 2018. Basophil pct 0.7 % [facility] Comment: Interpretive Data Percent cell count reference ranges are not reported, since discordance with absolute values may lead to misinterpretation of CBC data. Current Interpretive Data was last revised on 2018. Blood 10/23/2024 5:27 AM RESOURCE CONSERVATION SPECIALIST 10/23/2024 5:30 AM RESOURCE CONSERVATION SPECIALIST us Raisa Scherer NP LAB BLOOD ORDERABLES Jeaneth mari Result NIDIA COTE [address] Department [place] [address] * (ABNORMAL) CBC with auto differential (10/23/2024 5:27 AM RESOURCE CONSERVATION SPECIALIST) WBC 5.3 3.8 - 9.9 K/cumm Hgb [...] NRBC abs 0.00 0.00 - 0.01 K/cumm [facility] Blood 10/23/2024 5:27 AM RESOURCE CONSERVATION SPECIALIST 10/23/2024 5:30 AM RESOURCE CONSERVATION SPECIALIST Raisa Scherer ASSOCIATE PROFESSOR OF MUSIC LAB BLOOD ORDERABLES Jeaneth l Result Performing Organization Address [facility] Co de Phone Number [facility] [address] [address] [place] [place] [address] * Phosphorus (10/23/2024 5:27 AM RESOURCE CONSERVATION SPECIALIST) Pathologist [facility] Phosphorus, pl 4.5 2.3 - 4.5 mg/dL Blood 10/23/2024 5:27 AM RESOURCE CONSERVATION SPECIALIST 10/23/2024 5:30 AM RESOURCE CONSERVATION SPECIALIST Raisa Scherer ASSOCIATE PROFESSOR OF MUSIC LAB BLOOD ORDERABLES Jeaneth l Result Performing Organization Address City/[facility] Co de Phone Number [facility] [address] [address] [facility] [place] [address] * Magnesium (10/23/2024 5:27 AM RESOURCE CONSERVATION SPECIALIST) Pathologist [facility] Magnesium 2.1 1.4 - 2.5 mg/dL Blood 10/23/2024 5:27 AM RESOURCE CONSERVATION SPECIALIST 10/23/2024 5:30 AM RESOURCE CONSERVATION SPECIALIST us Raisa Scherer ASSOCIATE PROFESSOR OF MUSIC LAB BLOOD ORDERABLES Jeaneth mari Result [facility] [address] Department [place] [address] * (ABNORMAL) Comprehensive metabolic panel (10/23/2024 5:27 AM RESOURCE CONSERVATION SPECIALIST) Pathologist [facility] Sodium 137 135 - 145 mmol/L Potassium, [...] Units/L [facility] Blood 10/23/2024 5:27 AM RESOURCE CONSERVATION SPECIALIST 10/23/2024 5:30 AM RESOURCE CONSERVATION SPECIALIST us Raisa Scherer ASSOCIATE PROFESSOR OF MUSIC LAB BLOOD ORDERABLES Jeaneth l Result NIDIA COTE [address] [address] [facility] [place] [address] * POCT glucose (10/23/2024 3:04 AM RESOURCE CONSERVATION SPECIALIST) Glucose, POC 84 70 - 199 mg/dL Blood 10/23/2024 3:04 AM RESOURCE CONSERVATION SPECIALIST 10/23/2024 3:04 AM RESOURCE CONSERVATION SPECIALIST us Sylvester Engel MD LAB POCT ORDERABLES - SALO CE Final Result Performing Organization Address [facility] Co de Phone Number NIDIA KERA [address] [address] [facility] [place] [address] * POCT glucose (10/22/2024 10:42 PM RESOURCE CONSERVATION SPECIALIST) Glucose, POC 101 70 - 199 mg/dL Blood 10/22/2024 10:4 2 PM RESOURCE CONSERVATION SPECIALIST 10/22/2024 10:42 PM RESOURCE CONSERVATION SPECIALIST us Sylvester Engel MD LAB POCT ORDERABLES - SALO CE Final Result Performing Organization Address [facility] Co de Phone Number NIDIA [address] [address] [facility] [place] [address] * POCT glucose (10/22/2024 8:42 PM RESOURCE CONSERVATION SPECIALIST) Glucose, POC 114 70 - 199 mg/dL Blood 10/22/2024 8:42 PM RESOURCE CONSERVATION SPECIALIST 10/22/2024 8:42 PM RESOURCE CONSERVATION SPECIALIST Guru Miller MD LAB POCT ORDERABLES - DEVICE Final Result Performing Organization Address City/[facility]/ZIP Co de Phone Number ALYSSAALANNAH [address] [address] [facility] [place] [address] * (ABNORMAL) DIABETES EYE EXAM (08/13/2024 9:40 AM CDT) Historical Provider HEALTH MAINTENANCE Edited Result - Final * (ABNORMAL) Albumin Creatinine Ratio, Urine (03/10/2024 8:46 AM CDT) Albumin Ur 3,169.5 mg/L Comment: Interpretive Data No reference range established. Current interpretive data was last revised 2019. Creatinine Ur 47.7 mg/dL [facility] Comment: Interpretive Data No reference range established. Current interpretive data was last revised 2019. Albumin Creatinine Ratio, Ur 6,645(H) 1 - 29 mg/g [facility] Urine 03/10/2024 8:46 AM CDT 03/11/2024 9:11 AM CDT Bertha Pinto NP LAB URINE ORDERABLES Jeaneth l Result [facility] [address] Department [place] [address] * (ABNORMAL) Lipid panel (03/03/2024 9:29 AM [...] revised on 2018. Triglycerides 75 <=149 mg/dL [facility] Comment: Interpretive Data Ages < or = [...] 03/03/2024 4:40 PM CDT us Bertha Pinto ASSOCIATE PROFESSOR OF MUSIC LAB BLOOD ORDERABLES Jeaneth l Result NIDIA COTE [address] Department [place] [address] * CT Abdomen Pelvis WO Contrast (12/05/2021 11:53 AM RESOURCE CONSERVATION SPECIALIST) Anatomical Region Laterality Modality Body N/A Computed Tomogra phy 12/05/2021 12:0 4 PM RESOURCE CONSERVATION SPECIALIST Impressions 12/05/2021 12:04 PM RESOURCE CONSERVATION SPECIALIST Bone windows show no suspicious lytic or blastic lesions. IMPRESSION: 1. 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 2. 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 Electronically signed by: Ryan Cameron M.D. Narrative 12/05/2021 12:04 PM RESOURCE CONSERVATION SPECIALIST EXAMINATION: Computed tomography of the abdomen/pelvis without [...] adeniform shape. There is atrophy of both [place] kidneys. Adjacent fat stranding is likely related [...] adeniform shape. There is atrophy of both [place] kidneys. Adjacent fat stranding is likely related [...]
--- OUTSIDE RECORDS SUMMARY | 2024-12-20 09:34 | XMS_ITS | Encounter Summary ---
Author Organization [facility] Health Address [address] [place] [address] Care Team Providers Care Local Telephone Operator Name Role Phone Mariza Carrion MD Primary Care Provider Encounter Details Date Type Department Care Team (Late Contact Info) Description 06/03/2018 [facility] Outpatient Visit [facility] [address] [place] [address] [place] [address] [facility] [address] [place] [id number] Social History Tobacco Use Types Packs/Day [...] Info) Description 03/23/2025 8:00 AM CDT Appointment [facility] Health Vascular Services [address] [facility], [address] [place], [place] [id number] [place] [address] [facility] [address] [place] [address] documented as of this encounter Visit Diagnoses Not on filedocumented in this encounter Care Teams Local Telephone Operator Relationship Specialty Start Date End Date Mariza Carrion MD [address] [place] [id number] PCP - General Family Medicine 08/26/18 documented as of this encounter
--- OUTSIDE RECORDS SUMMARY | 2024-12-20 09:35 | XMS_ITS | Clinical Summary ---
Author Organization [email or web address] Address [address] [place] [address] Care Team Providers Care Sap Solutions Architect Name Role Phone Mariza Carrion MD Primary Care Provider Source Comments [facility],non-owned Affiliates and Associated Physician Practices is amultiple site organization consisting of ambulatory clinics and hospital sitesin [place], [place], [place] and [place]. This disclosure is being madepursuant to the Care Everywhere program and may not contain all information available regarding this patient. Last updated 18.[facility] Allergies No known active allergies Medications * [...] Use pads 5 times daily 09/19/2018 Active ywllv-[id number] ethyl esters (LOVAZA) 1 g capsule Take [...] FOR MUSCLE SPASM 09/03/2024 Active HYDROcodone-aceta minophen ([place]) 5-325 MG tablet 12/15/2023 Active Lokelma 10 [...] Department Care Team Description 11/04/2024 Orders Only [facility] - Urology [address] [place] [phone] Anita Shay MA Urinary retention 09/22/2024 7:08 AM MANAGEMENT AIDE - 09/22/2024 11:59 PM MANAGEMENT AIDE Hospital Encounter [facility] Vascular Services [address] [address], [address] [place] [address] Dank George MD Discharge Disposition: Home or [...] and heating? Not hard at all 04/06/2023 [facility] of Occupat ional Health - Occupational Stress [...] place to sleep or slept in a correction (including now)? No 04/06/2023 Sex and Gender Information Value Date Recorded Sex Assigned at Not on file Gender Identity Not on file Sexual Orientation Not on file Last Filed Vital Signs Vital Sign Reading Time Taken Comments Blood Pressure 147/70 09/22/2024 8:55 AM MANAGEMENT AIDE Pulse 68 09/22/2024 8:55 AM MANAGEMENT AIDE Temperature 36.2 C (97.2 F) 09/22/2024 7:24 AM MANAGEMENT AIDE Respiratory Rate 15 09/22/2024 8:55 AM MANAGEMENT AIDE Oxygen Saturation 92% 09/22/2024 8:55 AM MANAGEMENT AIDE Inhaled Oxygen Concentration 25% 04/11/2023 7 :26 PM CDT Weight 87.9 kg (193 lb 12.6 oz) 09/22/2024 7:24 AM MANAGEMENT AIDE Height 170.2 cm (5' 7 ) 09/22/2024 7:24 AM MANAGEMENT AIDE Body Mass Index 30.35 09/22/2024 7:24 AM MANAGEMENT AIDE Plan of Treatment Upcoming Encounters Date Type Department Care Team (Late st Contact Info) Description 03/23/2025 8:00 AM CDT Appointment [facility] Health Vascular Services [id number] [place] [address], [address] [place] [address] [place] [address] [address] [facility] [address] [place] [address] Health Maintenance Due Date Last [...] this topic Medical Devices Implanted Type Area Vat Tender Device Identifier Shelf Expiration Date Model / Serial / Lot Mynxgrip Vascular Closure Device Implanted:Qty: 1 on 04/11/2023 by Matt Beyer DO at [facility] Right: Groin 01/19/2025 [id number] / [id number] / [id number] 5tch Cv 6x1cm [employer] Decellularized Implanted:Qty: 1 on 04/20/2023 by Matt Beyer DO at [facility] N/A: Other (See Descriptio n) [employer] 01/28/2024 [id number] / / [id number] Description:LEFT FEMORAL ART BARI Procedures Procedure Name Priority Date/Time Associated Diagnosis Comments CARDIAC RHYTHM STRIP ORDER 09/23/2024 9:57 PM MANAGEMENT AIDE IR ANGIO AV SHUNT IMAGING Routine 09/22/2024 8:41 AM MANAGEMENT AIDE ESRD (end stage renal disease) (HCC) HEPATITIS SCREEN ACUTE STAT 04/07/2023 8:19 AM CDT from Last 3 Months or Most Recently Relevant to Health Maintenance Results * CARDIAC RHYTHM STRIP ORDER (09/23/2024 9:57 PM MANAGEMENT AIDE) Narrative 09/23/2024 9:57 PM MANAGEMENT AIDE Ordered by an unspecified provider. Scanned Document CARDIAC SERVICES ORD ERABLES * IR Angio Av Shunt Imaging (09/22/2024 8:41 AM MANAGEMENT AIDE) Anatomical Region Laterality Modality Lower Extremity, Upper Extremity, Chest X-Ray Angiography Narrative 09/22/2024 8:43 AM Dank Jeronimo MD 09/22/2024 8:46 AM [facility] [place] Brandie Morrissey 1945 DATE OF PROCEDURE: 09/22/2024 [...] stent. Tract was dilated and a 6 German sheath was inserted. Patient was given IV [...] AM CDT 04/07/2023 8:31 AM CDT Narrative [facility] - 04/07/2023 9:28 AM CDT Non Reactive - Antibodies to Hepatitis C virus (HCV) were not detected, result does not exclude early acute HCV infection. 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
--- OUTSIDE RECORDS SUMMARY | 2024-12-20 09:35 | XMS_ITS | Clinical Summary ---
Author Organization [facility] Address [address] [place] [address] Phone Care Team Providers Care Export Manager Name Role Phone Mariza Carrion MD Primary [...] dir 0 11/12/2017 Active ergocalciferol (VITAMIN D-2) 28537 units capsule Take 1 capsule (50,000 Units total) by mouth 2 (two) times a week. 28 capsule 3 03/27/2019 Active hydrALAZINE (APRESOLINE) 100 MG tablet TAKE 1 TABLET TWICE A DAY 180 tablet 4 04/30/2019 Active aspirin 81 MG chewable tablet one p.o. qd 05/23/2012 Active ergocalciferol (VITAMIN D-2) 96983 units capsule one p.o. capsule once a [...] 2012 Influenza Vaccine (#1) 2024 Care Teams Export Manager Relationship Specialty Start Date End Date Mariza Carrion MD [address] [place] [address] PCP - General Internal Medicine 01/06/19
--- OUTSIDE RECORDS SUMMARY | 2024-12-20 09:35 | XMS_ITS | Referral Summary ---
Author Organization [facility] Address [address] [place] [address] Care Team Providers Care Lab Assistant Name Role Phone Mariza Carrion MD Primary Care Provider Source Comments [facility],non-owned Affiliates and Associated Physician Practices is amultiple site organization consisting of ambulatory clinics and hospital sitesin [place], [place], [place] and [place]. This disclosure is being madepursuant to the Care Everywhere program and may not contain all information available regarding this patient. Last updated 18.[facility] Encounters Date Type Department Care Team Description 11/04/2024 Orders Only [facility] - Urology [address] , [address] [place] [address] Anita Shay MA Urinary retention 09/22/2024 Travel 09/22/2024 7:08 AM [employer]ER [employer] - 09/22/2024 11:59 PM [facility] Hospital Encounter [facility] [address], [address] [place], [place] [id number] Dank George MD Discharge Disposition: Home or [...] Use pads 5 times daily 09/19/2018 Active lfvzb-4-qohb ethyl esters (LOVAZA) 1 g capsule Take [...] FOR MUSCLE SPASM 09/03/2024 Active HYDROcodone-aceta minophen ([place]) 5-325 MG tablet 12/15/2023 Active Lokelma 10 [...] and heating? Not hard at all 04/06/2023 [facility] [place] [facility] - Occupational Stress [...] place to sleep or slept in a senior care (including now)? No 04/06/2023 Sex and Gender Information Value Date Recorded Sex Assigned at Not on file Gender Identity Not on file Sexual Orientation Not on file Last Filed Vital Signs Vital Sign Reading Time Taken Comments Blood Pressure 147/70 09/22/2024 8:55 AM [employer]ER [employer] Pulse 68 09/22/2024 8:55 AM [employer]UMBLER PLATER Temperature 36.2 C (97.2 F) 09/22/2024 7:24 AM TUMBLER [employer]ATER Respiratory Rate 15 09/22/2024 8:55 AM TUMBLER [employer]ATER Oxygen Saturation 92% 09/22/2024 8:55 AM [employer]ER [employer]ATER Inhaled Oxygen Concentration 25% 04/11/2023 7 :26 PM CDT Weight 87.9 kg (193 lb 12.6 oz) 09/22/2024 7:24 AM [employer]UMBLER PL[employer] Height 170.2 cm (5' 7 ) 09/22/2024 7:24 AM [employer]UM[employer]ER [employer] Body Mass Index 30.35 09/22/2024 7:24 AM TUMBLER PLATER Functional Status Functional Status Response Date of [...] Info) Description 03/23/2025 8:00 AM CDT Appointment [facility] [address] [place] [address], [address] [place] [address] [place] [address] [address] [address] [place] [id number] Medical Devices Implanted Type Area Smoking Pipe Repairer Device Identifier Shelf Expiration Date Model / Serial / Lot Mynxgrip Vascular Closure Device Implanted:Qty: 1 on 04/11/2023 by Matt Beyer DO at [facility] Right: Groin 01/19/2025 [id number] / [id number] / [id number] 5tch Cv 6x1cm Phot[employer]ix Decellularized Implanted:Qty: 1 on 04/20/2023 by Matt Beyer DO at [facility] N/A: Other (See Descriptio n) [employer] 01/28/2024 [id number] / / [id number] Description:LEFT FEMORAL ART BARI Procedures Procedure Name Priority Date/Time Associated Diagnosis Comments CARDIAC RHYTHM STRIP ORDER 09/23/2024 9:57 PM [employer]UM[employer]ER [employer] IR ANGIO AV SHUNT IMAGING Routine 09/22/2024 8:41 AM TUM[employer]ER [employer] ESRD (end stage renal disease) (HCC) HEPATITIS SCREEN ACUTE STAT 04/07/2023 8:19 AM CDT from Last 3 Months or Most Recently Relevant to Health Maintenance Results * CARDIAC RHYTHM STRIP ORDER (09/23/2024 9:57 PM TUMBLER PLATER) Narrative 09/23/2024 9:57 PM [employer]UMBLER [employer]ATER Ordered by an unspecified provider. Scanned Document CARDIAC SERVICES ORD ERABLES * IR Angio Av Shunt Imaging (09/22/2024 8:41 AM TUMBLER PLATER) Anatomical Region Laterality Modality Lower Extremity, Upper Extremity, Chest X-Ray Angiography Narrative 09/22/2024 8:43 AM TUMBLER PLATER Dank George MD 09/22/2024 8:46 AM [facility] Brandie Morrissey 1945 DATE OF [...] stent. Tract was dilated and a 6 [place] sheath was inserted. Patient was given IV [...] Reactive Non Reactive 04/07/2023 9:28 AM CDT [facility] Blood BLOOD SPECIMEN / Unknown Venipuncture / Unknown 04/07/2023 8:19 AM CDT 04/07/2023 8:31 AM CDT Narrative [facility] - 04/07/2023 9:28 AM CDT Non Reactive - Antibodies to Hepatitis C virus (HCV) were not detected, result does not exclude early acute HCV infection. 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
--- OUTSIDE RECORDS SUMMARY | 2024-12-20 09:35 | XMS_ITS | Patient Health Summary ---
Author Organization [facility] [employer] Address [address] [place] [address] Care Team Providers Care Plant Care Worker Name Role Phone Mariza Carrion MD Primary Care Provider Note from [facility],non-owned Affiliates and Associated Physician Practices is amultiple site organization consisting of ambulatory clinics and hospital sitesin [place], [place], [place] and [place]. This disclosure is being madepursuant to the Care Everywhere program and may not contain all information available regarding this patient. Last updated 18.[facility] [employer] Allergies No known active allergies Medications * [...] 09/19/2018) Use pads 5 times daily * eeqwf-8-wxcn ethyl esters (LOVAZA) 1 g capsule(Started 02/23/2020) [...] as needed FOR MUSCLE SPASM * HYDROcodone-acetaminophen ([place]) 5-325 MG tablet(Started 12/15/2023) * Lokelma 10 [...] and heating? Not hard at all 04/06/[address] [facility] [place] [facility] Occupat ional [facility] - Occupational Stress [...] place to sleep or slept in a nursing home (including now)? No 04/06/2023 Sex and Gender Information Value Date Recorded Sex Assigned at Not on file Gender Identity Not on file Sexual Orientation Not on file Last Filed Vital Signs Vital Sign Reading Time Taken Comments Blood Pressure 147/70 09/22/2024 8:55 AM BRIDGE CRANE OPERATOR Pulse 68 09/22/2024 8:55 AM BRIDGE CRANE OPERATOR Temperature 36.2 C (97.2 F) 09/22/2024 7:24 AM BRIDGE CRANE OPERATOR Respiratory Rate 15 09/22/2024 8:55 AM BRIDGE CRANE OPERATOR Oxygen Saturation 92% 09/22/2024 8:55 AM BRIDGE CRANE OPERATOR Inhaled Oxygen Concentration 25% 04/11/2023 7 :26 PM CDT Weight 87.9 kg (193 lb 12.6 oz) 09/22/2024 7:24 AM BRIDGE CRANE OPERATOR Height 170.2 cm (5' 7 ) 09/22/2024 7:24 AM BRIDGE CRANE OPERATOR Body Mass Index 30.35 09/22/2024 7:24 AM BRIDGE CRANE OPERATOR Medical Devices Implanted Type Area Steel Roller Device Identifier Shelf Expiration Date Model / Serial / Lot Mynxgrip Vascular Closure Device Implanted:Qty: 1 on 04/11/2023 by Matt Beyer DO at [facility] Right: Groin 01/19/2025 [id number] / [id number] / [id number] 5tch Cv 6x1cm Photofix Decellularized Implanted:Qty: 1 on 04/20/2023 by Matt Beyer DO at [facility] N/A: Other (See Descriptio n) [employer] 01/28/2024 [id number] / / [id number] Description:LEFT FEMORAL ART BARI Procedures * CARDIAC RHYTHM STRIP ORDER(Performed 09/23/2024) * IR ANGIO AV SHUNT IMAGING(Performed 09/22/2024) Performed for ESRD (end stage renal disease) ([facility]) * CARDIAC RHYTHM STRIP ORDER(Performed 06/10/2024) * IR ANGIO AV SHUNT IMAGING(Performed 06/09/2024) Performed for ESRD (end stage renal disease) ([facility]) * CARDIAC RHYTHM STRIP ORDER(Performed 01/29/2024) * CARDIAC RHYTHM STRIP ORDER(Performed 09/25/2023) * IR ANGIO AV SHUNT IMAGING(Performed 09/24/2023) Performed for Encounter regarding vascular access for dialysis for end-stage renal disease ([facility]) * CARDIAC RHYTHM STRIP ORDER(Performed 06/01/2023) * IR ANGIO AV SHUNT IMAGING(Performed 05/30/2023) Performed for Encounter regarding vascular access for dialysis for end-stage renal disease ([facility]) * VAS LEFT ARTERIAL DUPLEX LE(Performed 05/17/2023) [...] 04/20/2023) * ENDOTRACHEAL TUBE NOTE(Performed 04/20/2023) * NY TEAEC W/GRAFT SUPERFICIAL FEMORAL ART(Performed 04/20/2023) * PTT(Performed 04/20/2023) * PT-INR(Performed 04/20/2023) * TYPE + SCREEN PANEL(Performed 04/20/2023) * CBC W AUTO DIFFERENTIAL(Performed 04/20/2023) * RENAL FUNCTION PANEL(Performed 04/20/2023) * GLUCOSE - POINT OF CARE(Performed 04/19/2023) * GLUCOSE - POINT OF CARE(Performed 04/19/2023) * HYBRID IMAGING(Performed 04/19/2023) Performed for PVD (peripheral vascular disease) ([facility]) * ENDOTRACHEAL TUBE NOTE(Performed 04/19/2023) * HEMODIALYSIS [...] 04/13/2023) Performed for PVD (peripheral vascular disease) ([facility]) * STRESS TEST(Performed 04/13/2023) Performed for PVD (peripheral vascular disease) ([facility]) * GLUCOSE - POINT OF CARE(Performed 04/13/2023) [...] EKG 12-LEAD(Performed 04/11/2023) Performed for Cardiac arrest ([facility]) * GLUCOSE - POINT OF CARE(Performed 04/11/2023) * LACTIC ACID BLOOD(Performed 04/11/2023) * TROPONIN I(Performed 04/11/2023) * EKG 12-LEAD(Performed 04/11/2023) Performed for Cardiac arrest ([facility]) * TROPONIN I(Performed 04/11/2023) * COAGULATION PANEL [...] Performed for ESRD (end stage renal disease) ([facility]) * CARDIAC RHYTHM STRIP ORDER(Performed 06/12/2022) * IR ANGIO AV SHUNT IMAGING(Performed 05/31/2022) Performed for Complication of arteriovenous dialysis fistula, initial encounter * CARDIAC RHYTHM STRIP ORDER(Performed 02/02/2022) * IR ANGIO AV SHUNT IMAGING(Performed 01/25/2022) Performed for ESRD (end stage renal disease) ([facility]) * CARDIAC RHYTHM STRIP ORDER(Performed 10/03/2021) * IR ANGIO AV SHUNT IMAGING(Performed 09/28/2021) Performed for ESRD (end stage renal disease) ([facility]) * CARDIAC RHYTHM STRIP ORDER(Performed 06/07/2021) * [...] Performed for ESRD (end stage renal disease) ([facility]), Complication of arteriovenous dialysis fistula,initial encounter * CARDIAC RHYTHM STRIP ORDER(Performed 06/17/2019) * IR ANGIO AV SHUNT IMAGING(Performed 06/04/2019) Performed for Complication of arteriovenous dialysis fistula, initial encounter, ESRD (end stage renal disease) ([facility]) * VAS DIALYSIS EXIST ACCESS SCAN(Performed 01/27/2019) Performed for ESRD (end stage renal disease) ([facility]) * GLUCOSE - POINT OF CARE(Performed 09/17/2018) * ARTERIOVENOUS FISTULA TRANSPOSITION / SUPERFICIALIZATION(Performed 09/17/2018) * GLUCOSE - POINT OF CARE(Performed 09/17/2018) * BASIC METABOLIC PANEL (CALCIUM TOTAL)(Performed 09/17/2018) Performed for Preoperative examination * VAS DIALYSIS EXIST ACCESS SCAN(Performed 08/26/2018) Performed for ESRD (end stage renal disease) ([facility]) * VAS DIALYSIS EXIST ACCESS SCAN(Performed 07/22/2018) Performed for ESRD (end stage renal disease) ([facility]) * CREATE FISTULA A-V(Performed 07/09/2018) * GLUCOSE - POINT OF CARE(Performed 07/09/2018) * BASIC METABOLIC PANEL (CALCIUM TOTAL)(Performed 07/09/2018) Performed for Preoperative examination * VAS BILAT MAPPING FOR HEMODIALYSIS(Performed 06/03/2018) Performed for ESRD (end stage renal disease) ([facility]) * ANGIOGRAM/ARTERIOGRAM Results * CARDIAC RHYTHM STRIP ORDER (09/23/2024 9:57 PM BRIDGE CRANE OPERATOR) Only the most recent of19 resultswithin the time period is included. Narrative 09/23/2024 9:57 PM BRIDGE CRANE OPERATOR Ordered by an unspecified provider. Scanned Document CARDIAC SERVICES ORD ERABLES * IR Angio Av Shunt Imaging (09/22/2024 8:41 AM BRIDGE CRANE OPERATOR) Only the most recent of16 resultswithin the time period is included. Anatomical Region Laterality Modality Lower Extremity, Upper Extremity, Chest X-Ray Angiography Narrative 09/22/2024 8:43 AM BRIDGE CRANE OPERATOR Dank George MD 09/22/2024 8:46 AM [facility] [place] Brandie Morrissey 1945 DATE OF PROCEDURE: 09/22/2024 [...] stent. Tract was dilated and a 6 [place] sheath was inserted. Patient was given IV [...] Note Juan A Bassett MD - 05/17/2023 [facility] [place] [address], [address] [place] [address] Lower Extremity Arterial Ultrasound Report Pat.Name: BRANDIE MORRISSEY JR Pat.ID: [id number] .Date: 05/17/2023 Refer.MD: KENN LACY Exam Time: 12:58:00 PM Study Type:LE Arterial Age: 7 1945,77Y Sex: MALE Sonogrphr: Liz Diana RVT Pat. Stat.:Outpatient CPT - 4: 45722 Reason for Study: Follow up surgery History / Clinical: Hypertension, Diabetes, Coronary artery disease, Hyperlipidemia Procedures: Lower Extremity Arterial Duplex - Left Race: [facility] Visit ID: [id number] ++++++++++++++++++++++++++++++++++++ SUMMARY: ++++++++++++++++++++++++++++++++++++ Severe left lower extremity peripheral vascular disease ++++++++++++++++++++++++++++++++++++ FINDINGS: ++++++++++++++++++++++++++++++++++++ Procedure: B-mode imaging, color flow Doppler and spectral analysis were used to examine the arteries of the left lower extremity. Study Quality: This study is of adequate technical quality. Lt Leg: Arterial doppler waveforms of the left MACHINE CLOTHING WORKER are biphasic. Arterial doppler waveforms of the left SFA are monophasic and appears to be near occlusion. Arterial doppler waveforms of the left lower calf arteries are monophasic. Calcified plaque visualized in the most of Arteries in Left Leg. ++++++++++++++++++++++++++++++++++++ MEASUREMENTS: ++++++++++++++++++++++++++++++++++++ DOPPLER Left MACHINE CLOTHING WORKER Prox MACHINE CLOTHING WORKER Prox PSV 119 cm/s Left ISELA Dist [...] Left Profunda Profunda PSV 55 cm/s Left PUBLIC HEALTH SPECIALIST Distal PUBLIC HEALTH SPECIALIST Distal PSV 26 cm/s PUBLIC HEALTH SPECIALIST Distal EDV 16 cm/s Left PUBLIC HEALTH SPECIALIST Mid PUBLIC HEALTH SPECIALIST Mid PSV 22 cm/s Left PUBLIC HEALTH SPECIALIST Prox PUBLIC HEALTH SPECIALIST Prox PSV 20 cm/s Left SFA Dist [...] Juan A Bassett MD Maria Isabel Barrios LANDMAN-VIDEO GAME TECHNICIAN VASCULAR LAB O RDERABLES * APHERESIS/TRANSFUSION ORDER (05/02/2023 3:59 PM CDT) Narrative 05/02/2023 3:59 PM CDT Ordered by an unspecified provider. Scanned Document NURSING - VITAL SIGN S AND ASSESSMENT * (ABNORMAL) GLUCOSE - POINT OF CARE (05/01/2023 1:21 PM CDT) Only the most recent of97 resultswithin the time period is included. [facility] Glucose WB/POC 121(H) 70 - 106 mg/dL 05/01/2023 3:14 PM CDT [facility] Specimen Type Cap Fingerstick 2022 3:14 PM CDT [facility] Blood BLOOD SPECIMEN / Unknown 05/01/2023 1:21 PM CDT 05/01/2023 3:14 PM CDT Jm Waters MD LAB - POINT OF CARE ORDERABLES [facility] [address] [place] [address] * (ABNORMAL) CBC W/O DIFFERENTIAL (05/01/2023 8:34 AM CDT) Only the most recent of9 resultswithin the time period is included. [facility] WBC 8.8 4.4 - 10.7 x10E9/L 05/01/2023 8:40 AM CDT [facility] RBC 2.67(L) 3.80 - 5.40 x10E12/L 05/01/2023 8:40 AM CDT [facility] Hemoglobin 7.9(L) 12.0 - 17.6 gm/dL 05/01/2023 8:40 AM CDT [facility] Hematocrit 23.3(L) 35.2 - 51.7 % 05/01/2023 8:40 AM CDT [facility] MCV 87.3 80.7 - 98.3 fl 05/01/2023 8:40 AM CDT [facility] MCH 29.6 26.7 - 34.0 pg 05/01/2023 8:40 AM CDT [facility] MCHC 33.9 30.8 - 35.9 gm/dL 05/01/2023 8:40 AM CDT [facility] Platelet Count 288 153 - 416 x10E9/L 05/01/2023 8:40 AM CDT [facility] RDW-CV 16.6(H) 12.1 - 14.9 % 05/01/2023 8:40 AM CDT [facility] MPV 10.6 9.4 - 12.9 fl 05/01/2023 8:40 AM CDT [facility] Blood BLOOD SPECIMEN / Unknown Venipuncture / Unknown 05/01/2023 8:34 AM CDT 05/01/2023 8:34 AM CDT Karma Delcid MD LAB - HEMATOLOGY ORD ERABLES [facility] [address] [place] [address] * (ABNORMAL) RENAL FUNCTION PANEL (05/01/2023 8:34 AM CDT) Only the most recent of15 resultswithin the time period is included. Glucose 139(H) 70 - 105 mg/dL 05/01/2023 8:57 AM CDT [facility] Sodium 122(LL) 136 - 145 mmol/L 05/01/2023 8:57 AM CDT [facility] Potassium 4.5 3.5 - 5.1 mmol/L 05/01/2023 8:57 AM CDT [facility] Chloride 88(L) 98 - 107 mmol/L 05/01/2023 8:57 AM CDT [facility] CO2 22(L) 23 - 31 mmol/L 05/01/2023 8:57 AM CDT [facility] Calcium 10.2 8.4 - 10.4 mg/dL 05/01/2023 8:57 AM CDT [facility] Anion Gap 12 8 - 18 mmol/L 05/01/2023 8:57 AM CDT [facility] BUN 62(H) 8.4 - 25.7 mg/dL 05/01/2023 8:57 AM CDT [facility] Creatinine 8.72(H) 0.72 - 1.25 mg/dL 05/01/2023 8:57 AM CDT [facility] Albumin 3.3 3.2 - 4.6 gm/dL 05/01/2023 8:57 AM CDT [facility] Phosphorus 5.5(H) 2.3 - 4.7 mg/dL 05/01/2023 8:57 AM CDT [facility] eGFR by CKD-EPI 6(L) >=90 mL/min/1.7 3 m2 05/01/2023 8:57 AM CDT [facility] Blood BLOOD SPECIMEN / Unknown Venipuncture / Unknown 05/01/2023 8:34 AM CDT 05/01/2023 8:34 AM CDT Karma Delcid MD LAB - CHEMISTRY RJ AYALA Performing Organization Address [facility]/ZIP Co de Phone Number [facility] [address] [place], [place] [id number] * (ABNORMAL) FOLATE (04/27/2023 10:47 AM CDT) Folate 5.1(L) 7.0 - 31.4 ng/mL 04/27/2023 12:01 PM CDT [facility] Blood BLOOD SPECIMEN / Unknown Venipuncture / Unknown 04/27/2023 10:47 AM CDT 04/27/2023 11:07 AM CDT Karma Delcid MD LAB - CHEMISTRY ORDShahida AYALA Performing Organization Address [facility] Co de Phone Number [facility] [address] [place] [address] * (ABNORMAL) IRON + TRANSFERRIN PANEL (04/27/2023 10:47 AM CDT) Iron 46(L) 65 - 175 ug/dL 04/27/2023 11:26 AM CDT [facility] Transferrin 175 163 - 344 mg/dL 04/27/2023 11:26 AM CDT [facility] TIBC Calculated 219(L) 240 - 450 ug/dL 04/27/2023 11:26 AM CDT [facility] Iron Saturation % 21 20 - 50 % 04/27/2023 11:26 AM CDT [facility] Blood BLOOD SPECIMEN / Unknown Venipuncture / Unknown 04/27/2023 10:47 AM CDT 04/27/2023 11:07 AM CDT Karma Delcid MD LAB - CHEMISTRY RJ ARSLANMARIA ELENA Performing Organization Address [facility]/ZIP Co de Phone Number [facility] [address] [place] [address] * (ABNORMAL) FERRITIN (04/27/2023 10:47 AM CDT) Pathologist [facility] Ferritin 1,435(H) 22 - 275 ng/mL 04/27/2023 12:01 PM CDT [facility] Blood BLOOD SPECIMEN / Unknown Venipuncture / Unknown 04/27/2023 10:47 AM CDT 04/27/2023 11:07 AM CDT Karma Delcid MD LAB - CHEMISTRY RJ AYALA Performing Organization Address [facility] de Phone Number [facility] [id number] [place] [id number] * (ABNORMAL) BASIC METABOLIC PANEL (CALCIUM TOTAL) (04/27/2023 4:54 AM CDT) Only the most recent of11 resultswithin the time period is included. Pathologist [facility] Glucose 118(H) 70 - 105 mg/dL 04/27/2023 5:54 AM CDT [facility] Sodium 125(L) 136 - 145 mmol/L 04/27/2023 5:54 AM CDT [facility] Potassium 5.5(H) 3.5 - 5.1 mmol/L 04/27/2023 5:54 AM CDT [facility] Chloride 89(L) 98 - 107 mmol/L 04/27/2023 5:54 AM CDT [facility] CO2 25 23 - 31 mmol/L 04/27/2023 5:54 AM CDT [facility] Calcium 9.4 8.4 - 10.4 mg/dL 04/27/2023 5:54 AM CDT [facility] Anion Gap 11 8 - 18 mmol/L 04/27/2023 5:54 AM CDT [facility] BUN 31(H) 8.4 - 25.7 mg/dL 04/27/2023 5:54 AM CDT [facility] Creatinine 5.34(H) 0.72 - 1.25 mg/dL 04/27/2023 5:54 AM CDT [facility] eGFR by CKD-EPI 11(L) >=90 mL/min/1.7 3 m2 04/27/2023 5:54 AM CDT [facility] Blood BLOOD SPECIMEN / Unknown Venipuncture / Unknown 04/27/2023 4:54 AM CDT 04/27/2023 5:31 AM CDT Karma Delcid MD LAB - CHEMISTRY RJ AYALA [facility] [address] [place] [id number] * TRANSFUSE RED BLOOD CELL LEUKOREDUCED UNIT(S) (04/22/2023 3:02 AM CDT) Jacquelyn Shetty MD NURSING - BLOOD PROD TRANSFUSION * PREPARE (CROSSMATCH) RBC UNIT(S), 2 Units (04/21/2023 11:53 PM CDT) Unit Description AS1 LR PRBC [facility] Unit ABO O [facility] Unit Rh POS [facility] Product Number R02 [facility] Unit Donor # [id number] [facility] Unit Status transfused [facility] B[facility] Product Code [id number] [facility] Blood Type Barcode 5100 [facility] Expiration Date D [facility] Unit Description AS1 LR PRBC [facility] BLOOD BANK Unit ABO O [facility] BLOOD B[facility] Unit Rh POS DP BLOOD BANK Product Number R02 DP BLOOD BANK Unit Donor # [id number] [facility] Unit Status transfused [facility] B[facility] Product Code [id number] [facility] BL OOD BANK Blood Type Barcode 5100 [facility] Expiration Date D [facility] Blood Bank BLOOD SPECIMEN / Unknown 04/20/2023 1:15 PM CDT Silvia Rincon MD LAB - BLOOD BANK ORDERABLES [facility] [address] [phone] * TRANSFUSE RED BLOOD CELL LEUKOREDUCED UNIT(S) (04/20/2023 7:54 PM CDT) Jacquelyn Shetty MD NURSING - BLOOD PROD TRANSFUSION * PATHOLOGY TISSUE EXAM (STL) (04/20/2023 7:41 PM CDT) Case Report Surgical Pathology Report Case: [id number] Authorizing Provider: Matt Beyer DO Collected: 04/20/2023 07:41 PM Ordering Location: [facility] Received: 04/23/2023 06:38 AM Pathologist: Tl Doss MD Specimen: Artery Athero Plaque, LEFT ILIOFEMORAL ENDARTERECTOMY 04/25/2023 9:27 AM T [facility] Final Diagnosis A. Left iliofemoral, endarterectomy: -- Calcific atherosclerosis 04/25/2023 9:27 AM T [facility] Clinical History Peripheral arterial disease 04/25/2023 9:27 AM T [facility] Gross Description Received in formalin in a sterile container labeled Brandie Morrissey Jr, left iliofemoral endarterectomy, are multiple yellow-corbin atherosclerotic plaques of tissue measuring 2.3 x 1.3 x 0.6 cm in aggregate. Nuisance Wildlife Control Operator sections are submitted in cassette A1 for decalcification. CH/eh 04/25/2023 9:27 AM T [facility] Microscopic Description Microscopic examination substantiates the above cited diagnosis. MC 04/25/2023 9:27 AM T [facility] Disclaimer All histochemical and/or immunohistochemical results are interpreted with controls that demonstrate appropriate staining reactions before reporting results. Note on use of immunocytochemistry reagents: This test was developed and its performance characteristic determined by [facility], Department of Laboratory Medicine. It has not [...] interpreted with caution. 04/25/2023 9:27 AM CDT [facility] Embedded Images 04/25/2023 9:27 AM CDT [facility] Pathology/Cytolo gy ATHEROMA / Unknown 04/20/2023 7:41 PM CDT 04/23/2023 6:38 AM CDT Matt Beyer DO LAB - PATHOLOGY/CY TOLOGY ORDERABLES [facility] [address] [place] [address] * ETT LINE PERFORMABLE (04/20/2023 6:09 PM CDT) Narrative Akhil Sanders APRN-CRNA - 04/20/2023 6:09 PM CDT Akhil Sanders APRN-CRNA 04/20/2023 6:09 PM Endotracheal Tube Placement: Patient Location: OR. Intubation Event Date/Time: 04/20/2023 6:01 PM Procedure: intubation (09499). Procedure Section: Sedation: under general anesthesia. Indications [...] - 38.4 sec 04/20/2023 1:50 PM CDT [facility] Blood BLOOD SPECIMEN / Unknown Venipuncture / Unknown 04/20/2023 1:32 PM CDT 04/20/2023 1:38 PM CDT Narrative [facility] - 04/20/2023 1:50 PM CDT Heparin Therapeutic Range for PTT: 69.0 - 110.0 seconds. Maria Isabel Barrios LANDMAN-VIDEO GAME TECHNICIAN LAB - COAGULAT ION ORDERABLES Performing Organization Address [facility] Co de Phone Number [facility] [address] [place] [address] * PT-INR (04/20/2023 1:32 PM CDT) Only the most recent of2 resultswithin the time period is included. PT 14.2 12.1 - 14.8 sec 04/20/2023 1:50 PM CDT [facility] INR 1.1 0.9 - 1.1 04/20/2023 1:50 PM CDT [facility] Blood BLOOD SPECIMEN / Unknown Venipuncture / Unknown 04/20/2023 1:32 PM CDT 04/20/2023 1:38 PM CDT Narrative [facility] - 04/20/2023 1:50 PM CDT Conventional Warfarin Anticoagulant Therapy: INR Reference Range: 2.0-3.0 Intensive Warfarin Anticoagulant Therapy: INR Reference Range: 2.5-3.5 Maria Isabel Barrios LANDMAN-VIDEO GAME TECHNICIAN LAB - COAGULAT ION ORDERABLES Performing Organization Address [facility]/ZIP Co de Phone Number [facility] [address] [place] [address] * TYPE + SCREEN PANEL (04/20/2023 1:10 PM CDT) Only the most recent of3 resultswithin the time period is included. ABO Rh O POS 04/20/2023 1:59 PM CDT [facility] Comment:History checked. Antibody Screen NEG 1:59 PM CDT [facility] Blood Bank BLOOD SPECIMEN / Unknown Venipuncture / Unknown 04/20/2023 1:10 PM CDT 04/20/2023 1:15 PM CDT Silvia Rincon MD LAB - BLOOD BANK ORDERABLES [facility] [address] [phone] * (ABNORMAL) CBC W AUTO DIFFERENTIAL (04/20/2023 1:10 PM CDT) Only the most recent of15 resultswithin the time period is included. WBC 7.2 4.4 - 10.7 x10E9/L 04/20/2023 1:21 PM CDT [facility] WBC Corrected 04/20/2023 1:21 PM CDT [facility] RBC 2.18(L) 3.80 - 5.40 x10E12/L 04/20/2023 1:21 PM CDT [facility] Hemoglobin 6.9(L) 12.0 - 17.6 gm/dL 04/20/2023 1:21 PM CDT [facility] Hematocrit 20.4(L) 35.2 - 51.7 % 04/20/2023 1:21 PM CDT [facility] MCV 93.6 80.7 - 98.3 fl 04/20/2023 1:21 PM CDT [facility] MCH 31.7 26.7 - 34.0 pg 04/20/2023 1:21 PM CDT [facility] MCHC 33.8 30.8 - 35.9 gm/dL 04/20/2023 1:21 PM CDT [facility] Platelet Count 212 153 - 416 x10E9/L 04/20/2023 1:21 PM CDT [facility] RDW-CV 14.1 12.1 - 14.9 % 04/20/2023 1:21 PM CDT [facility] MPV 10.9 9.4 - 12.9 fl 04/20/2023 1:21 PM CDT [facility] Neutrophils % 80.3(H) 44.0 - 73.0 % 04/20/2023 1:21 PM CDT [facility] Lymphocytes % 5.7(L) 20.0 - 43.0 % 04/20/2023 1:21 PM CDT [facility] Monocytes % 11.7 5.0 - 13.0 % 04/20/2023 1:21 PM CDT [facility] Eosinophils % 1.0 0.0 - 6.0 % 04/20/2023 1:21 PM CDT [facility] Basophils % 0.7 0.0 - 2.0 % 04/20/2023 1:21 PM CDT [facility] Immature Granulocytes 0.6 0 - 1 % 04/20/2023 1:21 PM CDT [facility] Neutrophil Absolute 5.75 2.01 - 7.14 x10E9/L 04/20/2023 1:21 PM CDT [facility] Lymphocytes Absolute 0.41(L) 1.07 - 3.94 x10E9/L 04/20/2023 1:21 PM CDT [facility] Monocytes Absolute 0.84 0.26 - 1.07 x10E9/L 04/20/2023 1:21 PM CDT [facility] Eosinophils Absolute 0.07 0 - 0.47 x10E9/L 04/20/2023 1:21 PM CDT [facility] Basophils Absolute 0.05 0 - 0.08 x10E9/L 04/20/2023 1:21 PM CDT [facility] Immature Granulocytes Absolute 0.04 0.00 - 0.06 x10E9/L 04/20/2023 1:21 PM CDT [facility] nRBC Auto 0 /100 WBC 04/20/2023 1:21 PM CDT [facility] Blood BLOOD SPECIMEN / Unknown Venipuncture / Unknown 04/20/2023 1:10 PM CDT 04/20/2023 1:15 PM CDT Silvia Rincon MD LAB - HEMATOLOGY ORDERABLES [facility] [address] [place] [address] * HYBRID IMAGING (04/19/2023 5:30 PM CDT) Only the most recent of2 resultswithin the time period is included. Narrative [facility] - 04/23/2023 2:10 PM CDT Please see the progress note. Matt Beyer DO CARDIAC SENIOR HRIS ANALYST R ADIANT [facility] [address] [place] [address] * ETT LINE PERFORMABLE (04/19/2023 3:58 PM CDT) Narrative Bradley Sharma APRN-CRNA - 04/19/2023 3:58 PM CDT Bradley Sharma APRN-CRNA 04/19/2023 3:59 PM Endotracheal Tube Placement: Patient Location: OR. Intubation Event Date/Time: 04/19/2023 3:54 PM Procedure: intubation ([id number]). Procedure Section: Sedation: under general anesthesia. Indications [...] Patient Location: Holding Area. Procedure: Arterial Line ([id number]). Procedure Section Indications: continuous blood pressure monitoring [...] - 34 U/L 04/19/2023 6:19 AM CDT [facility] Protein Total 6.2(L) 6.4 - 8.3 gm/dL 04/19/2023 6:19 AM CDT [facility] Albumin 3.4 3.2 - 4.6 gm/dL 04/19/2023 6:19 AM CDT [facility] Bilirubin Total 0.4 0.2 - 1.2 mg/dL 04/19/2023 6:19 AM CDT [facility] eGFR by CKD-EPI 7(L) >=90 mL/min/1.7 3 m2 04/19/2023 6:19 AM CDT [facility] Blood BLOOD SPECIMEN / Unknown Venipuncture / Unknown 04/19/2023 5:15 AM CDT 04/19/2023 5:49 AM CDT Maria Isabel Barrios APRN-VIDEO GAME TECHNICIAN LAB - CHEMISTR Y ORDERABLES Performing Organization Address [facility] Co de Phone Number [facility] [address] [place] [address] * (ABNORMAL) PHOSPHORUS BLOOD (04/19/2023 5:15 AM CDT) Only the most recent of7 resultswithin the time period is included. Phosphorus 7.3(H) 2.3 - 4.7 mg/dL 04/19/2023 6:15 AM CDT [facility] Blood BLOOD SPECIMEN / Unknown Venipuncture / Unknown 04/19/2023 5:15 AM CDT 04/19/2023 5:49 AM CDT Adele Cabrera MD LAB - CHEMISTRY ORDE RABLES Performing Organization Address [facility] Co de Phone Number [facility] [address] [place] [address] * MAGNESIUM BLOOD (04/19/2023 5:15 AM CDT) Only the most recent of12 resultswithin the time period is included. Magnesium 2.2 1.6 - 2.6 mg/dL 04/19/2023 6:15 AM CDT [facility] Blood BLOOD SPECIMEN / Unknown Venipuncture / Unknown 04/19/2023 5:15 AM CDT 04/19/2023 5:49 AM CDT Adele Cabrera MD LAB - CHEMISTRY RJ AYALA [facility] Organization Address City/State/ZIP Co de Phone Number [facility] [address] [place] [address] * (ABNORMAL) ECHO COMPLETE W CONTRAST (04/18/2023 12:35 PM CDT) BSA [id number] m2 [facility] CV FUJI PACS LV biplane [...] I PACS LV RWT 0.473 [facility] CV [facility] I PACS LV An A2C 7.895 cm S[facility] CV F UJI PACS LV An A4C 7.563 cm [facility] CV F UJI PACS LV mass m-mode 203.74 88 - 224 g [facility] CV FUJI PACS LV mass index m-mode 98.45 49 - 115 g/m2 [facility] E pk khris 183.498 cm/s S[facility] CV F UJI PACS MV avg E/e' ratio 43.09 SS M CV FUJI PACS MV A pk khris 107.563 cm/s [facility] CV F UJI PACS MV E A ratio 1.71 [facility] E' lateral khris 3.961 cm/s SS M [facility] DT 252 ms [facility] CV [facility] I PACS MV E' septal khris 4.604 cm/s [facility] E/e' septal 39.858 [facility] C V FUJI PACS MV E/e' lateral 46.329 [facility] TR pk khris 273.9 cm/s [facility] CV [facility] I PACS LVOT pk khris 0.89 m/s [...] [facility] CV FUJI PACS AV area pk khrsi 1.6 cm2 SSM C V FUJI PACS [...] 30 mmHg SSM CV FU JI PACS [place] pk grad 7 mmHg SSM CV FU JI PACS PV pk khris 136.348 cm/s SSM CV FUJ I PACS PV pk grad 7 mmHg SSM CV FU JI PACS [id number] 6.907 cm SSM CV FUJ I PACS [id number] 6.723 cm SSM CV FUJ I PACS [...] Normal, Adequate platelets 04/17/2023 8:42 AM CDT [facility] Poikilocytosis 1+(A) None 04/17/2023 8:42 AM CDT [facility] Crenated Cells 1+(A) None 04/17/2023 8:42 AM CDT [facility] Blood BLOOD SPECIMEN / Unknown Venipuncture / Unknown 04/17/2023 5:43 AM CDT 04/17/2023 6:03 AM CDT Adele Cabrera MD LAB - HEMATOLOGY ORD ERABLES Performing Organization Address City/[facility] Co de Phone Number [facility] [address] [place] [address] * EKG 12-LEAD (04/13/2023 2:41 PM CDT) Only the most recent of3 resultswithin the time period is included. Ventricular Rate 75 BPM [facility] Atrial Rate 75 BPM [facility] P-R Interval 236 ms [facility] QRS Duration ms 142 ms [facility] Q-T Interval ms 514 ms [facility] QTC Calculation (Bezet) 573 ms [facility] Calculated P [place] 74 degrees [facility] Calculated R [place] -20 degrees [facility] Calculated T [place] -152 degrees [facility] Interpretation EKG Sinus rhythm with 1st degree A-V block with frequent Premature ventricular complexes Right bundle branch block T wave abnormality, consider lateral ischemia Abnormal ECG No previous ECGs available Confirmed by WILLIAM KIRBY MD (2025) on 04/16/2023 5:21:48 PM [facility] 04/13/2023 2:41 PM CDT 04/16/2023 5:21 PM CDT Rico Gallagher MD ECG ORDERABLES Performing Organization Address [facility] Co de Phone Number [facility] * NM MYOCARD PERF [...] mCi of Tc99m Tetrofosmin at rest and 31vUrCv36o Tetrofosmin at stress. 0.4 mg of Lexiscan [...] the time period is included. Pathologist [facility] Troponin I 0.948(HH) <0.038 ng/mL 04/12/2023 12:45 PM CDT [facility] Blood BLOOD SPECIMEN / Unknown Venipuncture / Unknown 04/12/2023 12:02 PM CDT 04/12/2023 12:11 PM CDT Parveen Sewell MD LAB - CHEMISTRY RJ AYALA [facility] [address] [place] [address] * TSH REFLEX FREE T4 (04/12/2023 3:52 AM CDT) Pathologist [facility] TSH 1.592 0.350 - 4.940 uIU/mL 04/12/2023 5:04 AM CDT [facility] Blood BLOOD SPECIMEN / Unknown Venipuncture / Unknown 04/12/2023 3:52 AM CDT 04/12/2023 4:04 AM CDT Parveen Sewell MD LAB - CHEMISTRY RJ AYALA Performing Organization Address [facility] Co de Phone Number [facility] [id number] [place] [address] * AMMONIA (04/12/2023 3:52 AM CDT) Ammonia 19 18 - 72 umol/L 04/12/2023 4:19 AM CDT [facility] Blood BLOOD SPECIMEN / Unknown Venipuncture / Unknown 04/12/2023 3:52 AM CDT 04/12/2023 4:02 AM CDT Parveen Sewell MD LAB - CHEMISTRY RJ AYALA Performing Organization Address [facility] de Phone Number [facility] [address] [place] [address] * LACTIC ACID BLOOD (04/11/2023 11:37 PM CDT) Only the most recent of3 resultswithin the time period is included. Lactic Acid 0.50 <=2 mmol/L 04/12/2023 12:00 AM CDT [facility] Blood BLOOD SPECIMEN / Unknown Venipuncture / Unknown 04/11/2023 11:37 PM CDT 04/11/2023 11:48 PM CDT Parveen Sewell MD LAB - CHEMISTRY RJ AYALA Performing Organization Address [facility] de Phone Number [facility] [id number] [place] [phone] * (ABNORMAL) COAGULATION PANEL W D-DIMER (04/11/2023 3:13 PM CDT) PT 14.0 12.1 - 14.8 sec 04/11/2023 3:35 PM CDT [facility] INR 1.1 0.9 - [...] Sewell MD LAB - COAGULATION OR DERABLES [facility] [address] [place] [address] * (ABNORMAL) BLOOD GASES ARTERIAL [...] BLOOD GASES OR DERABLES Performing Organization Address City/State/[facility] Co de Phone Number [facility] [address] [phone] * XR CHEST 1VW PORTABLE (04/11/2023 2:40 [...] Event Date/Time: 04/11/2023 1:40 PM Procedure: intubation ([id number]). Procedure Section: Sedation: none. Procedure pretreatments used? [...] minutes. Staff Section Anesthesia Provider: Dank Casey, LANDMAN-MINE ANALYST, Performed the procedure Diamond Spring MD GENERAL ANESTHESIA O EDGAR * ARTERIAL LINE PERFORMABLE (04/11/2023 1:57 PM CDT) Narrative Diamond Spring MD - 04/11/2023 1:57 PM CDT Dank Casey, PIPER 04/11/2023 2:01 PM Arterial Line Placement Procedure Note Patient Location: OR. Procedure: Arterial Line ([id number]). Procedure Section Indications: hypotension and renal failure. [...] No Staff Section Anesthesia Provider: Dank Casey, LANDMAN-MINE ANALYST, Performed the procedure Diamond Spring MD GENERAL ANESTHESIA O YAIMAERAMARIO * LACTIC ACID BLOOD REFLEX TO REPEAT (04/07/2023 11:52 AM CDT) Lactic Acid 0.54 <=2 mmol/L 04/07/2023 12:20 PM CDT [facility] Blood BLOOD SPECIMEN / Unknown Venipuncture / Unknown 04/07/2023 11:52 AM CDT 04/07/2023 12:00 PM CDT Ilan Black MD LAB - CHEMISTRY RJ AYALA [facility] [address] [place] [address] * CT ANGIO ABDOMEN AORTA [...] DATE/TIME OF EXAM: 04/07/2023 9:55 AM, LOCATION [facility] INDICATION: I70.90: Unspecified atherosclerosis ADDITIONAL CLINICAL INFORMATION: [...] RUNOFF, DATE/TIME OF EXAM:04/07/2023 9:55 AM, LOCATION [facility] INDICATION: I70.90: Unspecified atherosclerosis ADDITIONAL CLINICAL INFORMATION: [...] QUANT (04/07/2023 8:19 AM CDT) Pathologist [facility] Hepatitis B Virus Surface Antibody Quantitative 33.58(H) 0.00 - 7.99 mIU/ml 04/07/2023 1:34 PM CDT [facility] HBsAb REACTIVE( A) Non Reactive 04/07/2023 1:34 PM CDT [facility] Blood BLOOD SPECIMEN / Unknown Venipuncture / Unknown 04/07/2023 8:19 AM CDT 04/07/2023 8:31 AM CDT Narrative [facility] - 04/07/2023 1:34 PM CDT Individual is considered immune to HBV infection. Marito Rios MD LAB - SEROLOGY ORDER JENNIFER Performing Organization Address City/State/[facility] Co de Phone Number [facility] [address] [place] [address] * HEPATITIS SCREEN ACUTE (04/07/2023 8:19 AM CDT) Pathologist [facility] HAV Antibody IgM Non Reactive Non Reactive 04/07/2023 9:28 AM CDT [facility] HBsAg Non Reactive Non Reactive 04/07/2023 9:28 AM CDT [facility] HBc Antibody IgM Non Reactive Non Reactive 04/07/2023 9:28 AM CDT [facility] HCV Antibody Screen Non Reactive Non Reactive 04/07/2023 9:28 AM CDT [facility] Blood BLOOD SPECIMEN / Unknown Venipuncture / Unknown 04/07/2023 8:19 AM CDT 04/07/2023 8:31 AM CDT Narrative [facility] - 04/07/2023 9:28 AM CDT Non Reactive - Antibodies to Hepatitis C virus (HCV) were not detected, result does not exclude early acute HCV infection. Marito Riso MD LAB - CHEMISTRY RJ AYALA Performing Organization Address [facility] Co de Phone Number [facility] [address] [place] [address] * HEMOGLOBIN A1C (04/07/2023 4:28 AM CDT) Hemoglobin A1c 4.8 <5.7 % 04/07/2023 5:05 AM CDT [facility] Estimated Average Glucose 91 mg/dL 04/07/2023 5:05 AM CDT [facility] Blood BLOOD SPECIMEN / Unknown Venipuncture / Unknown 04/07/2023 4:28 AM CDT 04/07/2023 4:36 AM CDT Narrative [facility] - 04/07/2023 5:05 AM [...] exceeds 5% in the specimen. The Mitchell Hoist Worker assay for the measurement of HbA1c is a National Glycohemoglobin Standardization Program (NGSP) certified method. Susana MUSE LAB - CHEMISTRY Elli HERNÁNDEZ Performing Organization Address [facility] Co de Phone Number [facility] [address] [place] [address] * VAS ARTERIAL ANKLE ARM INDEX (04/05/2023 2:55 PM CDT) Anatomical Region Laterality Modality Ankle / Foot, Upper Extremity Ul trasound 04/05/2023 2:37 PM CDT Narrative Procedure Note Juan A Bassett MD - 04/05/2023 [facility] [place] [facility] [address] [address], [address] [place] [address] Lower Extremity Arterial Doppler Report Pat.Name: GUILLERMO BRANDIE Ashlyn MCKAY Pat.ID: [id number] .Date: 04/05/2023 Refer.MD: Juan A Bassett Exam Time: 2:37:00 PM Study Type:MARTY/PVR Age: 7 1945,77Y Sex: MALE Sonogrphr: Ebenezer Terrazas Rvt Pat. Stat.:Outpatient CPT - 4: 81997 Reason for Study: Pain -Leg, left Procedures: Ankle Arm Index Race: 2 Visit ID: [id number] ++++++++++++++++++++++++++++++++++++ SUMMARY: ++++++++++++++++++++++++++++++++++++ Severe arterial disease in [...] monophasic. Arterial doppler waveforms of the left PUBLIC HEALTH SPECIALIST are absent. Arterial doppler waveforms of the left DPA are absent. MARTY: Rt ankle brachial index is 1.5. Left ankle brachial index is 0.0 (normal greater than 0.90). Arterial doppler waveforms of the right PUBLIC HEALTH SPECIALIST are monophasic. Arterial doppler waveforms of the right DPA are biphasic. Arterial doppler waveforms of the left PUBLIC HEALTH SPECIALIST are absent. Arterial doppler waveforms of the [...] Procedure Note Dank George MD - 01/27/2019 [facility] [place] [address], [address] [place] [address] Hemodialysis Graft Report Pat.Name: BRANDIE MORRISSEY JR Pat.ID: [id number] .Date: 01/27/2019 Exam Time: 9:59:00 AM Study Type:Hemodialysis Graft Age: 7 1945,73Y Sex: MALE Sonogrphr: Ishmael Terrazas RVT Pat. Stat.:Outpatient ICD - 9: N18.6 End stage renal disease CPT - 4: 06489 Procedures: Vessel Mapping for Hemodialysis Race: 2 Visit ID: [id number] ++++++++++++++++++++++++++++++++++++ SUMMARY: ++++++++++++++++++++++++++++++++++++ Patent left upper AV [...] Signed 01/27/2019 02:55 PM Dank George MD Dakn George MD VASCULAR LAB ORDER JENNIFER * VAS MAPPING FOR HEMODIALYSIS (06/03/2018 12:12 PM CDT) Anatomical Region Laterality Modality Ultrasound 06/03/2018 12:0 5 PM CDT Narrative Procedure Note Dank George MD - 06/03/2018 [facility] [place] [facility] [address] [address], [address] [place] [address] Vessel Mapping for Hemodialysis Report Pat.Name: BRANDIE MORRISSEY Pat.ID: [id number] St.Date: 06/03/2018 Exam Time: 12:05:00 PM Study Type:Vessel Mapping for Hemodialysis Age: 7 1945,73Y Sex: MALE Sonogrphr: Ishmael Terrazas RVT Pat. Stat.:Outpatient ICD - 9: N18.6 End stage renal disease CPT - 4: G0365 Procedures:Vessel Mapping for Hemodialysis Race: 2 Visit ID: [id number] ++++++++++++++++++++++++++++++++++++ SUMMARY: ++++++++++++++++++++++++++++++++++++ The cephalic and basilic [...] MD VASCULAR LAB ORDER JENNIFER Care Teams Plant Care Worker Relationship Specialty Start Date End Date Mariza Carrion MD [address] [place] [address] PCP - General Family Medicine 08/26/18
--- OUTSIDE RECORDS SUMMARY | 2024-12-20 09:35 | XMS_ITS | Clinical Summary ---
Author Organization [facility] Facility Address [address] [place] [address] Care Team Providers Care Cement Patcher Name Role Phone Murali Dawkins MD Primary Care Provider Encounters Date Type Department Care Team Description 10/28/2024 Documentation Only [facility], [address] [phone] Jeanie Graff from Last 3 Months Social [...] complete this topic Insurance MEDICARE Care Teams Cement Patcher Relationship Specialty Start Date End Date Murali Dawkins MD [address] [place] [address] PCP - General Family Medicine 10/28/24
--- OUTSIDE RECORDS SUMMARY | 2024-12-20 09:36 | XMS_ITS | Referral Summary ---
Author Organization [facility] Address [address] [place] [address] Care Team Providers Care Survey Instrument Operator Name Role Phone Efren Hoyos MD Unavailable Dank Hicks MD Unavailable [phone] Mariza Carrion MD Primary Care Provider Encounters Date Type Department Care Team Description 11/25/2024 Telephone [facility] Diabetes and Endocrinology [address] [place] [phone] Bertha Pinto NP [employer] 11/25/2024 Telephone [facility] Diabetes and Endocrinology [address] [place] [phone] Bertha Pinto NP Med Management (Humalog ) 11/24/2024 11:00 AM DROP WIRER Office Visit [facility] Diabetes and Endocrinology [address] [place] [phone] Bertha Pinto, JUAREZ Type 2 diabetes mellitus with hyperglycemia, with long-term current use of insulin (CMS/HCC) (Primary Dx); Hypertension associated with diabetes (HCC); Hyperlipidemia associated with type 2 diabetes mellitus (HCC) 11/05/2024 1:30 PM DROP WIRER Ancillary Procedure [facility] Cardiology [address] [place] [address] Cardiac pacemaker in situ; Asystole (CMS/HCC) (HCC); Syncope and collapse; Symptomatic bradycardia 11/04/2024 Orders Only [facility] Card[facility] [address] [facility] [address] [place] [address] Dank Hicks MD Cardiac pacemaker in situ (Primary Dx); Asystole (CMS/HCC) (HCC); Syncope and collapse; Symptomatic bradycardia 10/22/2024 8:28 PM DROP WIRER - 10/25/2024 3:09 PM DROP WIRER Hospital Encounter [address] [address] Guru Miller MD Brother, Michele A., MD Durante, Mitchell Joseph, DO Syncope and collapse [R55] (Primary Dx); ESRD on dialysis ([facility]) [N18.6, Z99.2]; 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, without long-term current use of insulin (CMS/HCC) ([facility]) [E11.22, N18.6, Z99.2]; Syncope and collapse; Type 2 diabetes mellitus with hyperglycemia, with long-term current use of insulin ([facility]) [E11.65, Z79.4]; Asystole (CMS/HCC) ([facility]) [I46.9] Discharge Disposition: Discharge to home or self care 10/24/2024 12:58 PM DROP WIRER Anesthesia Event [facility] Cardiac Catheterization Lab [address] [place] [address] Bahman Arrington MD Sheehan, Whitney Elise, CRNA 10/24/2024 12:30 PM DROP WIRER - 10/24/2024 2:30 PM DROP WIRER Surgery [facility] Cardiac Catheterization Lab [address] [place] [address] Darien Jamil Jr., MD LEADLESS, SINGLE CHAMBER PACEMAKER (PPM) INSERTION 10/23/2024 Orders Only [facility] Cardiac Catheterization Lab [address] [place] [address] Darien Jamil Jr., MD Syncope and collapse [...] hyperglycemia, with long-term current use of insulin ([facility]) Use to test glucose 5 times daily 450 each 2 04/03/20 18 Active lancets (freestyle) 28 gauge miscIndications:T ype 2 diabetes mellitus with hyperglycemia, with long-term current use of insulin ([facility]) Use to test glucose 5 [...] hyperglycemia, with long-term current use of insulin ([facility]) Change sensor every 14 days [...] hyperglycemia, with long-term current use of insulin ([facility]) Use pads 5 times daily [...] hyperglycemia, with long-term current use of insulin ([facility]) Inject 0.5ML(1.5MG total) under the [...] hyperglycemia, with long-term current use of insulin ([facility]) Use to inject insulin 4x/day [...] without lower urinary tract symptoms 10/23/2024 Asystole ([facility]) 10/23/2024 Syncope and collapse 10/22/2024 ESRD on hemodialysis ([facility]) 12/09/2019 Assessment & Plan (09/03/2023 9:28 AM DROP WIRER): Chronic problem. [facility] [place]: //Saturdays. LUE fistula. Assessment & Plan (03/05/2023 9:59 AM CDT): Chronic problem. [facility] in [place]: //Saturdays. LUE fistula. ESRD on dialysis 05/22/2019 Hyperlipidemia associated with type 2 diabetes fouzia victoria 05/22/2019 Assessment & Plan (11/24/2024 10:10 AM DROP WIRER): Chronic problem. Controlled on current Atorvastatin 20mg. Last lipid panel: 03/03/24 LDL=33, TG=75. Assessment & Plan (03/03/2024 8:45 AM CDT): Chronic problem. Controlled on current Atorvastatin 20mg. Last lipid panel: 03/05/23 LDL=57, SK=186. Will update labs today. Does not mychart. Verified phone #/address to contact re: results. Assessment & Plan (09/03/2023 9:28 AM DROP WIRER): Chronic problem. Controlled on current Atorvastatin 20mg. Last lipid panel: 03/05/23 LDL=57, SU=130. Assessment & Plan (03/05/2023 9:53 AM CDT): Chronic problem. Controlled on current Atorvastatin 20mg. Last lipid panel: 12/05/21 LDL=36, KB=386. Will update labs today. Verified phone #/address to contact re: results. Assessment & Plan (11/02/2022 2:47 PM DROP WIRER): Chronic, well controlled Low fat Low cholesterol [...] Lipitor Assessment & Plan (09/07/2020 2:26 PM DROP WIRER): Goal of treatment , LDL cholesterol less [...] panel Assessment & Plan (12/09/2019 2:03 PM DROP WIRER): Very high TG Add Vascepa Assessment & [...] statin therapy Coronary artery disease invo lving [place] coronary artery of [place] heart without angina pectoris 10/04/2017 Hx of CABG 10/04/2017 Class 2 severe obesity due t o excess calories with serious comorbidity and body mass index (BMI) of 38.0 to 38.9 in adult 05/22/2017 Assessment & Plan (10/24/2018 12:58 PM DROP WIRER): Making progress with diet efforts. Continue Assessment & Plan (02/08/2018 11:01 AM CDT): Importance of following diet and exercising discussed. Hypertension associated with diabetes 05/22/2017 Assessment & Plan (11/24/2024 10:11 AM DROP WIRER): Chronic problem. Controlled on current losartan 100mg daily, amlodipine 10mg daily Assessment & Plan (03/03/2024 8:45 AM CDT): Chronic problem. BP elevated upon arrival. Controlled on current Carvedilol 25mg bid, losartan 100mg daily. No changes at this time. Will update labs today. Does not mychart. Verified phone #/address to contact re: results. Assessment & Plan (09/03/2023 9:28 AM DROP WIRER): Chronic problem. BP elevated upon arrival. Controlled [...] renal Assessment & Plan (10/24/2018 12:57 PM DROP WIRER): Controlled. Continue current medication plan and follow up with cardiology Assessment & Plan (06/18/2018 2:30 PM CDT): BP controlled on current medication plan. Continue follow up with nephrology Assessment & Plan (02/08/2018 11:00 AM CDT): Continue same medication Assessment & Plan (12/11/2017 10:24 AM DROP WIRER): Goal blood pressure is less than 140/85 [...] mellitus Assessment & Plan (11/24/2024 10:16 AM DROP WIRER): Chronic problem, controlled on current regimen. A1c [...] daily for skin breakdown and infection (sees hoop bender tank regularly). Assessment & Plan (03/03/2024 9:19 AM [...] daily for skin breakdown and infection (sees hoop bender tank regularly). Assessment & Plan (09/03/2023 9:27 AM DROP WIRER): Chronic problem, controlled on current regimen. A1c [...] daily for skin breakdown and infection (sees hoop bender tank regularly). Assessment & Plan (03/05/2023 10:13 AM CDT): Chronic problem, controlled on current regimen. Current medications: Trulicity 1.5mg weekly Lantus 6 units every morning Humalog 4 units before meals For sugars over 160: take 6 units For sugars over 200: take 8 units Seen by [facility] every 4-5 mos; letter sent to get [...] daily for skin breakdown and infection (sees hoop bender tank regularly). Will update labs today. Verified phone #/address to contact re: results. Assessment & Plan (11/02/2022 2:43 PM DROP WIRER): Well controlled, with risk of hypoglycemia Insuli [...] Ross Assessment & Plan (09/07/2020 2:26 PM DROP WIRER): Hba1c was Lab Results Component Value Date [...] Trulicity. Assessment & Plan (12/09/2019 2:03 PM DROP WIRER): Your Hba1c today was: Lab Results Component Value Date HGBA1C 9.3 12/09/2019 meaning a 3 month average sugar of : 224 Your goal hba1c is under 7.0 to prevent long winder tender diabetes complications ( eye , kidney and [...] hypoglycemia. Assessment & Plan (10/24/2018 1:00 PM DROP WIRER): Stable BG pattern 100-140 reported since last adjustment to plan. No change today. BG goals reviewed. Advised to lower Lantus by 2 units if FBG are < 100 x 2 days/wk. For planned activity, reduce Humalog dose by 1/2 at preceding meal. Assessment & Plan (09/19/2018 11:11 AM DROP WIRER): Your Hba1c today was: Lab Results Component Value Date HGBA1C 5.1 09/19/2018 meaning a 3 month average sugar of : 81 Your goal hba1c is under 7.0 to prevent long winder tender diabetes complications ( eye , kidney and [...] time. Assessment & Plan (12/11/2017 10:47 AM DROP WIRER): Hba1c was .5.4 Today, 1800 calorie, consistent [...] 05/22/2019 Assessment & Plan (09/19/2018 11:20 AM DROP WIRER): Prevention and treatment of hypoglycemia were discussed [...] therapy Assessment & Plan (10/24/2018 12:57 PM DROP WIRER): Check lipid panel Assessment & Plan (06/18/2018 2:31 PM CDT): Continue statin therapy Assessment & Plan (02/08/2018 11:00 AM CDT): Continue atorvastatin Assessment & Plan (12/11/2017 10:45 AM DROP WIRER): Goal of treatment , LDL cholesterol less [...] drink = 0.6 oz pur e alcohol) [facility] Conclusive [employer] Answer Date Recorded In the past 12 months has [employer], [employer], [employer], or water [employer] threatened to shut off services in your [...] often do you attend chur ch or bahai services? Never 10/23/2024 Do you belong to any clubs o r organizations such as congregation groups, unions, fraternal or athletic groups, or [...] any time in the past 12 [facility], were you homeless or living in a chcf (including now)? No 10/23/2024 Personal Safety Answer Date Recorded Have you ever been in or are you currently in a harmful physical or emotional relationship or is someone making you feel afraid or unsafe? Denies 10/22/2024 Sex and Gender Information Value Date Recorded Sex Assigned at Not on file Legal Sex Male 7:27 PM DROP WIRER Gender Identity Not on file Sexual Orientation Not on file Last Filed Vital Signs Vital Sign Reading Time Taken Comments Blood Pressure 102/58 11/24/2024 9:58 AM DROP WIRER Pulse 75 11/24/2024 9:58 AM DROP WIRER Temperature 36.3 C (97.3 F) 10/25/2024 2:15 PM DROP WIRER Respiratory Rate 20 11/24/2024 9:58 AM DROP WIRER Oxygen Saturation 100% 10/25/2024 1:15 PM DROP WIRER Inhaled Oxygen Concentration - - Weight 91.3 kg (201 lb 4.5 oz) 10/22/2024 8:29 P M DROP WIRER Height 170.2 cm (5' 7.01 ) 11/24/2024 9:58 AM CS T Body Mass Index 31.52 10/22/2024 8:29 PM DROP WIRER Plan of Treatment Not on file Medical Devices Implanted Type Area Emt Intermediate Device Identifier Shelf Expiration Date Model / Serial / Lot Med[employer]onic Inc Micra 2 Av Synchronous Leadless Ventricular Pacemaker [id number] - [id number] - [id number] Implanted:Qty: 1 on 10/24/2024 by Darien Jamil Jr., MD at [facility] [employer] 02/16/2026 [id number] / [id number] / Procedures Procedure Name Priority Date/Time Associated Diagnosis Comments POCT GLUCOSE Routine 11/24/2024 10:01 AM DROP WIRER Type 2 diabetes mellitus with hyperglycemia, with long-term current use of insulin ([facility]) POCT HEMOGLOBIN A1C Routine 11/24/2024 1 0:01 AM DROP WIRER Type 2 diabetes mellitus with hyperglycemia, with long-term current use of insulin (CMS/[facility]) DEVICE CHECK - IN OFFICE Routine 11/05/2024 1:22 PM DROP WIRER Cardiac pacemaker in situ Asystole (CMS/HCC) ([facility]) Syncope and collapse Symptomatic bradycardia POCT GLUCOSE DEVICE Routine 10/25/2024 1 2:56 PM DROP WIRER POCT GLUCOSE DEVICE Routine 10/25/2024 8 :10 AM DROP WIRER POCT GLUCOSE DEVICE Routine 10/25/2024 7 :43 AM DROP WIRER EGFR Routine 10/25/2024 5:48 AM DROP WIRER BASIC METABOLIC PANEL Routine 10/25/2024 5:48 AM DROP WIRER CBC WITHOUT DIFFERENTIAL Routine 10/25/2024 5:48 AM DROP WIRER POCT GLUCOSE DEVICE Routine 10/25/2024 2 :25 AM DROP WIRER POCT GLUCOSE DEVICE Routine 10/24/2024 8 :31 PM DROP WIRER POCT GLUCOSE DEVICE Routine 10/24/2024 4 :33 PM DROP WIRER POCT GLUCOSE DEVICE Routine 10/24/2024 2 :03 PM DROP WIRER LEADLESS, SINGLE CHAMBER PACEMAKER (PPM) INSERTION Routine 10/24/2024 1:36 PM DROP WIRER Syncope and collapse POCT GLUCOSE DEVICE Routine 10/24/2024 1 1:26 AM DROP WIRER POCT GLUCOSE DEVICE Routine 10/24/2024 7 :30 AM DROP WIRER TSH Routine 10/24/2024 5:12 AM DROP WIRER EGFR Routine 10/24/2024 4:59 AM DROP WIRER BASIC METABOLIC PANEL Routine 10/24/2024 4:59 AM DROP WIRER CBC WITHOUT DIFFERENTIAL Routine 10/24/2024 4:59 AM DROP WIRER POCT GLUCOSE DEVICE Routine 10/24/2024 2 :39 AM DROP WIRER POCT GLUCOSE DEVICE Routine 10/23/2024 1 0:25 PM DROP WIRER POCT GLUCOSE DEVICE Routine 10/23/2024 8 :04 PM DROP WIRER POCT GLUCOSE DEVICE Routine 10/23/2024 5 :42 PM DROP WIRER HEPATITIS B SURFACE ANTIBODY (IMMUNE STATUS) Routine 10/23/2024 2:45 PM DROP WIRER HEPATITIS PANEL, ACUTE Routine 10/23/2024 2:45 PM DROP WIRER POCT GLUCOSE DEVICE Routine 10/23/2024 1 2:57 PM DROP WIRER HEMODIALYSIS Routine 10/23/2024 9:13 AM DROP WIRER POCT GLUCOSE DEVICE Routine 10/23/2024 7 :47 AM DROP WIRER EGFR Routine 10/23/2024 5:27 AM DROP WIRER DIFFERENTIAL AUTO Routine 10/23/2024 5:2 7 AM DROP WIRER MAGNESIUM Routine 10/23/2024 5:27 AM DROP WIRER PHOSPHORUS Routine 10/23/2024 5:27 AM DROP WIRER COMPREHENSIVE METABOLIC PANEL Routine 10/23/2024 5:27 AM DROP WIRER CBC WITH AUTO DIFFERENTIAL Routine 10/23/2024 5:27 AM DROP WIRER POCT GLUCOSE DEVICE Routine 10/23/2024 3 :04 AM DROP WIRER POCT GLUCOSE DEVICE Routine 10/22/2024 1 0:42 PM DROP WIRER POCT GLUCOSE DEVICE Routine 10/22/2024 8 :42 PM DROP WIRER HM DIABETES EYE EXAM Routine 08/13/2024 9:40 [...] Read Routine (OP Routine) 12/05/2021 11:53 AM DROP WIRER End stage renal disease (CMS/HCC) (HCC) from Last 3 Months or Most Recently Relevant to Health Maintenance Results * POCT hemoglobin A1c (11/24/2024 10:01 AM DROP WIRER) Hemoglobin A1C, POC 4.9 4.0 - 5.6 % Blood 11/24/2024 10:0 1 AM DROP WIRER Berthageno Pinto [employer] POINT OF CARE TEST ORDERA BLES Final Result * (ABNORMAL) POCT glucose (11/24/2024 10:01 AM DROP WIRER) Glucose Blood, POC 131 mg/dL Blood 11/24/2024 10:0 1 AM DROP WIRER Berthageno Pinto [employer] POINT OF CARE TEST ORDERA BLES Final Result * DEVICE CHECK - IN OFFICE (11/05/2024 1:22 PM DROP WIRER) Anatomical Region Laterality Modality Other Narrative 11/13/2024 2:43 PM DROP WIRER Medtronic Micra AV2 Pacemaker. Dx; Symptomatic Bradycardia, [...] Result * POCT glucose (10/25/2024 12:56 PM DROP WIRER) Glucose, POC 74 70 - 199 mg/dL Blood 10/25/2024 12:5 6 PM DROP WIRER 10/25/2024 12:56 PM DROP WIRER Nabeel Richard Philippe LAB POCT ORDERABLES - DEVICE Final Result Performing Organization Address [facility] de Phone Number NIDIA COTE [address] [address] [facility] [place] [address] * POCT glucose (10/25/2024 8:10 AM DROP WIRER) Glucose, POC 100 70 - 199 mg/dL Blood 10/25/2024 8:10 AM DROP WIRER 10/25/2024 8:10 AM DROP WIRER Nabeel Richard Philippe [facility] POCT ORDERABLES - DEVICE Final Result Performing Organization Address [facility] de Phone Number NIDIA COTE [address] [address] [facility] [place] [address] * POCT glucose (10/25/2024 7:43 AM DROP WIRER) Glucose, POC 78 70 - 199 mg/dL Blood 10/25/2024 7:43 AM DROP WIRER 10/25/2024 7:43 AM DROP WIRER Nabeel Paez [facility] POCT ORDERABLES - DEVICE Final Result Performing Organization Address [facility] de Phone Number NIDIA COTE [address] [place] [address] * (ABNORMAL) eGFR (10/25/2024 5:48 AM DROP WIRER) eGFR 9(L) >=60 mL/min/1. 73 m2 Comment: [...] last reviewed 2021. Blood 10/25/2024 5:48 AM DROP WIRER 10/25/2024 6:03 AM DROP WIRER Raisa Scherer NP LAB BLOOD ORDERABLES Jeaneth mari Result [facility] [address] Department [place] [address] * (ABNORMAL) CBC without differential (10/25/2024 5:48 AM DROP WIRER) WBC 4.6 3.8 - 9.9 K/cumm Hgb 8.3(L) 13.0 - 17.5 g/dL [facility] Hct 28.1(L) 38.9 - 50.3 % [facility] Plt 187 150 - 400 K/cumm [facility] MPV 10.6 9.1 - 12.3 fL [facility] RBC 2.82(L) 4.30 - 5.80 M/cumm [facility] MCV 99.6(H) 81.3 - 96.4 fL [facility] MCH 29.4 27.1 - 33.3 pg [facility] MCHC 29.5(L) 32.3 - 35.7 g/dL [facility] RDW CV 16.3(H) 11.1 - 14.9 % [facility] RDW SD 60.4(H) 35.7 - 48.1 fL [facility] NRBC abs 0.00 0.00 - 0.01 K/cumm [facility] Blood 10/25/2024 5:48 AM DROP WIRER 10/25/2024 6:03 AM DROP WIRER Raisa Scherer [employer] LAB BLOOD ORDERABLES Jeaneth l Result NIDIA COTE [address] [address] [place] [address] * (ABNORMAL) Basic metabolic panel (10/25/2024 5:48 AM DROP WIRER) Sodium 135 135 - 145 mmol/L Potassium, pl 4.3 3.3 - 4.9 mmol/L [facility] Chloride 93(L) 97 - 110 mmol/L [facility] CO2 27 22 - 32 mmol/L [facility] Anion gap 15 2 - 15 mmol/L [facility] BUN 30(H) 6 - 25 mg/dL [facility] Creatinine 5.94(H) 0.80 - 1.30 mg/dL [facility] Glucose 76 70 - 199 mg/dL [facility] Comment: Interpretive Data Fasting glucose >/= 126 [...] 2022. Calcium 8.8 8.5 - 10.3 mg/dL [facility] Blood 10/25/2024 5:48 AM DROP WIRER 10/25/2024 6:03 AM DROP WIRER Raisa Scherer [employer] LAB BLOOD ORDERABLES Jeaneth l Result Performing Organization Address City/[facility]/ZIP Co de Phone Number NIDIA COTE [address] [place] [place] [address] * POCT glucose (10/25/2024 2:25 AM DROP WIRER) Glucose, POC 81 70 - 199 mg/dL Blood 10/25/2024 2:25 AM DROP WIRER 10/25/2024 2:25 AM DROP WIRER Nabeel Ramos Philippe LAB POCT ORDERABLES - DEVICE Final Result Performing Organization Address [facility] Co de Phone Number NIDIA COTE [address] [address] [facility] [place] [address] * POCT glucose (10/24/2024 8:31 PM DROP WIRER) Glucose, POC 120 70 - 199 mg/dL Blood 10/24/2024 8:31 PM DROP WIRER 10/24/2024 8:31 PM DROP WIRER Nabeel Richard Philippe [facility] POCT ORDERABLES - DEVICE Final Result Performing Organization Address [facility] Phone Number NIDIA [address] [address] [facility] [place] [address] * POCT glucose (10/24/2024 4:33 PM DROP WIRER) Glucose, POC 85 70 - 199 mg/dL Blood 10/24/2024 4:33 PM DROP WIRER 10/24/2024 4:33 PM DROP WIRER Nabeel Richard Philippe [facility] POCT ORDERABLES - DEVICE Final Result Performing Organization Address [facility] Phone Number NIDIA [address] [address] [facility] [place] [address] * POCT glucose (10/24/2024 2:03 PM DROP WIRER) Glucose, POC 83 70 - 199 mg/dL Blood 10/24/2024 2:03 PM DROP WIRER 10/24/2024 2:03 PM DROP WIRER Result [facility] us Lees Richard Philippe LAB POCT ORDERABLES - DEVICE Final Result Performing Organization Address [facility] Co de Phone Number NIDIA [address] [address] [facility] [place] [address] * POCT glucose (10/24/2024 11:26 AM DROP WIRER) Glucose, POC 85 70 - 199 mg/dL Blood 10/24/2024 11:2 6 AM DROP WIRER 10/24/2024 11:26 AM DROP WIRER Nabeel Ramos Philippe [facility] POCT ORDERABLES - DEVICE Final Result Performing Organization Address [facility] de Phone Number NIDIA COTE [address] [address] [facility] [place] [address] * POCT glucose (10/24/2024 7:30 AM DROP WIRER) Pathologist [facility] Glucose, POC 94 70 - 199 mg/dL Blood 10/24/2024 7:30 AM DROP WIRER 10/24/2024 7:30 AM DROP WIRER [facility] Richard Philippe [facility] POCT ORDERABLES - DEVICE Final Result Performing Organization Address [facility] [place] [address] [address] [facility] [place] [address] * TSH (10/24/2024 5:12 AM DROP WIRER) [facility] Thyroid Stimulating Hormone 0.48 0.30 - 4.20 mcIUnit/mL Blood 10/24/2024 5:12 AM DROP WIRER 10/24/2024 5:23 AM DROP WIRER Sherrill Christianson MD LAB BLOOD ORDERABLES Final Result Performing Organization Address [facility] [place] [address] [address] [facility] [place] [address] * (ABNORMAL) eGFR (10/24/2024 4:59 AM DROP WIRER) [facility] eGFR 13(L) >=60 mL/min/1. 73 m2 [...] reviewed 2021. Blood 10/24/2024 4:5 9 AM DROP WIRER 10/24/2024 5:23 AM DROP WIRER us Raisa Scherer NP LAB BLOOD ORDERABLES Jeaneth mari Result [facility] [address] [address] Department [place] [address] * (ABNORMAL) CBC without differential (10/24/2024 4:59 AM DROP WIRER) WBC 5.1 3.8 - 9.9 K/cumm Hgb [...] K/cumm [facility] Blood 10/24/2024 4:59 AM DROP WIRER 10/24/2024 5:20 AM DROP WIRER Raisa Scherer NP LAB BLOOD ORDERABLES Jeaneth l Result NIDIA COTE [address] [address] Department [place] [address] * (ABNORMAL) Basic metabolic panel (10/24/2024 4:59 AM DROP WIRER) Sodium 136 135 - 145 mmol/L Potassium, pl 4.2 3.3 - 4.9 mmol/L [facility] Chloride 94(L) 97 - 110 mmol/L [facility] CO2 31 22 - 32 mmol/L [facility] Anion gap 11 2 - 15 mmol/L [facility] BUN 20 6 - 25 mg/dL [facility] Creatinine 4.30(H) 0.80 - 1.30 mg/dL [facility] Glucose 80 70 - 199 mg/dL [facility] Comment: Interpretive Data Fasting glucose >/= 126 [...] 2022. Calcium 9.1 8.5 - 10.3 mg/dL [facility] Blood 10/24/2024 4:59 AM DROP WIRER 10/24/2024 5:20 AM DROP WIRER us Raisa Scherer NP LAB BLOOD ORDERABLES Jeaneth l Result NIDIA COTE [address] [address] [place] [address] * POCT glucose (10/24/2024 2:39 AM DROP WIRER) Glucose, POC 123 70 - 199 mg/dL Blood 10/24/2024 2:39 AM DROP WIRER 10/24/2024 2:39 AM DROP WIRER Nabeel Richard Paez LAB POCT ORDERABLES - DEVICE Final Result Performing Organization Address [facility] de Phone Number NIDIA [address] [address] [facility] [place] [address] * POCT glucose (10/23/2024 10:25 PM DROP WIRER) Glucose, POC 173 70 - 199 mg/dL Blood 10/23/2024 10:2 5 PM DROP WIRER 10/23/2024 10:25 PM DROP WIRER Nabeel Richard Philippe [facility] POCT ORDERABLES - DEVICE Final Result Performing Organization Address [facility] de Phone Number ALYSSAALANNAH [address] [address] [facility] [place] [address] * POCT glucose (10/23/2024 8:04 PM DROP WIRER) Glucose, POC 70 70 - 199 mg/dL Blood 10/23/2024 8:04 PM DROP WIRER 10/23/2024 8:04 PM DROP WIRER Nabeel Richard Philippe LAB POCT ORDERABLES - DEVICE Final Result Performing Organization Address [facility] de Phone Number NIDIA [address] [address] [facility] [place] [address] * POCT glucose (10/23/2024 5:42 PM DROP WIRER) Glucose, POC 90 70 - 199 mg/dL Blood 10/23/2024 5:42 PM DROP WIRER 10/23/2024 5:42 PM DROP WIRER Nabeel Richard Philippe LAB POCT ORDERABLES - DEVICE Final Result Performing Organization Address [facility] de Phone Number NIDIA COTE [address] [address] [place] [address] * Hepatitis panel, acute Blood (10/23/2024 2:45 PM DROP WIRER) Pathologist [facility] Hep A IgM Nonreactive Nonreactive Comment: Interpretive Data: If Hep A IgM Ab is reported as Equivocal, a new sample should be drawn in two weeks for testing. Current interpretive data was last revised on 20. Hep B core IgM Nonreactive Nonreactive [facility] Comment: Interpretive Data If HepB Core IgM Ab is reported as Equivocal, a new sample should be drawn in two weeks for testing. Current interpretive data was last revised on 20. Hep C Ab Nonreactive Nonreactive [facility] Comment: Interpretive Data Nonreactive: Antibodies to HCV [...] last revised on 2020. HepBsAg Nonreactive Nonreactive [facility] Blood 10/23/2024 2:45 PM DROP WIRER 10/23/2024 2:46 PM DROP WIRER Sherrill Christianson MD LAB MICROBIOLOGY - GENERAL ORDERABLES Final Result Performing Organization Address [facility] de Phone Number NIDIA COTE [address] [place] [address] * Hepatitis B surface antibody (immune status) Blood (10/23/2024 2:45 PM DROP WIRER) [facility] HBsAb (immune status) Nonreactive Comment: Interpretive [...] revised on 20. Blood 10/23/2024 2:45 PM DROP WIRER 10/23/2024 2:46 PM DROP WIRER Sherrill Christianson MD LAB MICROBIOLOGY - GENERAL ORDERABLES Final Result Performing Organization Address [facility] [place] [address] [address] [place] [address] * (ABNORMAL) POCT glucose (10/23/2024 12:57 PM DROP WIRER) Glucose, POC 69(L) 70 - 199 mg/dL Blood 10/23/2024 12:5 7 PM DROP WIRER 10/23/2024 12:57 PM DROP WIRER Nabeel Paez DO LAB POCT ORDERABLES - DEVICE Final Result Performing Organization Address [facility] [place] [address] [address] [place] [address] * POCT glucose (10/23/2024 7:47 AM DROP WIRER) Glucose, POC 81 70 - 199 mg/dL Blood 10/23/2024 7:47 AM DROP WIRER 10/23/2024 7:47 AM DROP WIRER Sylvester Engel MD LAB POCT ORDERABLES - SALO CE Final Result Performing Organization Address [facility] [place] [address] [address] [place] [address] * (ABNORMAL) eGFR (10/23/2024 5:27 AM DROP WIRER) eGFR 11(L) >=60 mL/min/1. 73 m2 Comment: [...] last reviewed 2021. Blood 10/23/2024 5:27 AM DROP WIRER 10/23/2024 5:32 AM DROP WIRER us Raisa Scherer NP LAB BLOOD ORDERABLES Jeaneth l Result [facility] [address] [place] [address] * (ABNORMAL) Differential, auto (10/23/2024 5:27 AM DROP WIRER) Neutrophil abs 4.1 1.5 - 6.5 K/cumm Imm gran abs 0.1 0.0 - 0.1 K/cumm [facility] Lymphocyte abs 0.4(L) 0.8 - 3.3 K/cumm [facility] Monocyte abs 0.7 0.2 - 0.8 K/cumm [facility] Eosinophil abs 0.1 0.0 - 0.5 K/cumm [facility] Basophil abs 0.0 0.0 - 0.1 K/cumm [facility] Neutrophil pct 76.5 % [facility] Comment: Interpretive Data Percent cell count reference ranges are not reported, since discordance with absolute values may lead to misinterpretation of CBC data. Current Interpretive Data was last revised on 2018. Imm gran pct 1.1 % [facility] Comment: Interpretive Data Percent cell count reference ranges are not reported, since discordance with absolute values may lead to misinterpretation of CBC data. Current Interpretive Data was last revised on 2018. Lymphocyte pct 7.9 % [facility] Comment: Interpretive Data Percent cell count reference ranges are not reported, since discordance with absolute values may lead to misinterpretation of CBC data. Current Interpretive Data was last revised on 2018. Monocyte pct 12.7 % [facility] Comment: Interpretive Data Percent cell count reference ranges are not reported, since discordance with absolute values may lead to misinterpretation of CBC data. Current Interpretive Data was last revised on 2018. Eosinophil pct 1.1 % [facility] Comment: Interpretive Data Percent cell count reference ranges are not reported, since discordance with absolute values may lead to misinterpretation of CBC data. Current Interpretive Data was last revised on 2018. Basophil pct 0.7 % [facility] Comment: Interpretive Data Percent cell count reference ranges are not reported, since discordance with absolute values may lead to misinterpretation of CBC data. Current Interpretive Data was last revised on 2018. Blood 10/23/2024 5:27 AM DROP WIRER 10/23/2024 5:30 AM DROP WIRER us Raisa Scherer NP LAB BLOOD ORDERABLES Jeaneth mari Result [facility] [address] [place] [address] * (ABNORMAL) CBC with auto differential (10/23/2024 5:27 AM DROP WIRER) WBC 5.3 3.8 - 9.9 K/cumm Hgb 8.8(L) 13.0 - 17.5 g/dL [facility] Hct 28.9(L) 38.9 - 50.3 % [facility] Plt 179 150 - 400 K/cumm [facility] MPV 10.4 9.1 - 12.3 fL [facility] RBC 2.86(L) 4.30 - 5.80 M/cumm [facility] MCV 101.0(H) 81.3 - 96.4 fL [facility] MCH 30.8 27.1 - 33.3 pg [facility] MCHC 30.4(L) 32.3 - 35.7 g/dL [facility] RDW CV 17.2(H) 11.1 - 14.9 % [facility] RDW SD 63.7(H) 35.7 - 48.1 fL [facility] NRBC abs 0.00 0.00 - 0.01 K/cumm [facility] Blood 10/23/2024 5:27 AM DROP WIRER 10/23/2024 5:30 AM DROP WIRER Raisa Scherer [employer] LAB BLOOD ORDERABLES Jeaneth l Result [facility] [address] [address] [facility] [place] [place], [place] [id number] * Phosphorus (10/23/2024 5:27 AM DROP WIRER) Pathologist [facility] Phosphorus, pl 4.5 2.3 - 4.5 mg/dL Blood 10/23/2024 5:27 AM DROP WIRER 10/23/2024 5:30 AM DROP WIRER Raisa Scherer [employer] LAB BLOOD ORDERABLES Jeaneth l Result Performing Organization Address [facility] Co de Phone Number [facility] [address] [address] [facility] [place] [address] * Magnesium (10/23/2024 5:27 AM DROP WIRER) [facility] Magnesium 2.1 1.4 - 2.5 mg/dL Blood 10/23/2024 5:27 AM DROP WIRER 10/23/2024 5:30 AM DROP WIRER Raisa Scherer [employer] LAB BLOOD ORDERABLES Jeaneth l Result Performing Organization Address City/[facility] Co de Phone Number [facility] [address] [address] [facility] [place] [place], [place] [id number] * (ABNORMAL) Comprehensive metabolic panel (10/23/2024 5:27 AM DROP WIRER) Pathologist [facility] Sodium 137 135 - 145 mmol/L Potassium, [...] Units/L [facility] Blood 10/23/2024 5:27 AM DROP WIRER 10/23/2024 5:30 AM DROP WIRER us Raisa Scherer NP LAB BLOOD ORDERABLES Jeaneth l Result [facility] [address] [place] [address] * POCT glucose (10/23/2024 3:04 AM DROP WIRER) Glucose, POC 84 70 - 199 mg/dL Blood 10/23/2024 3:04 AM DROP WIRER 10/23/2024 3:04 AM DROP WIRER Sylvester Engel MD LAB POCT ORDERABLES - SALO CE Final Result Performing Organization Address [facility] de Phone Number NIDIA [address] [address] [facility] [place] [address] * POCT glucose (10/22/2024 10:42 PM DROP WIRER) Glucose, POC 101 70 - 199 mg/dL Blood 10/22/2024 10:4 2 PM DROP WIRER 10/22/2024 10:42 PM DROP WIRER Sylvester Engel MD LAB POCT ORDERABLES - SALO CE Final Result Performing Organization Address [facility] Phone Number NIDIA [address] [place] [address] * POCT glucose (10/22/2024 8:42 PM DROP WIRER) Glucose, POC 114 70 - 199 mg/dL Blood 10/22/2024 8:42 PM DROP WIRER 10/22/2024 8:42 PM DROP WIRER Guru Miller MD LAB POCT ORDERABLES - DEVICE Final Result Performing Organization Address [facility] de Phone Number NIDIA [address] [place] [address] * (ABNORMAL) DIABETES EYE EXAM (08/13/2024 9:40 AM CDT) Historical Provider HEALTH MAINTENANCE Edited Result - Final * (ABNORMAL) Albumin Creatinine Ratio, Urine (03/10/2024 8:46 AM CDT) Albumin Ur 3,169.5 mg/L Comment: Interpretive Data No reference range established. Current interpretive data was last revised 2019. Creatinine Ur 47.7 mg/dL [facility] Comment: Interpretive Data No reference range established. Current interpretive data was last revised 2019. Albumin Creatinine Ratio, Ur 6,645(H) 1 - 29 mg/g [facility] Urine 03/10/2024 8:46 AM CDT 03/11/2024 9:11 AM CDT us Bertha Pinto NP LAB URINE ORDERABLES Jeaneth jacey Result [facility] [address] [place] [address] * (ABNORMAL) Lipid panel (03/03/2024 9:29 AM [...] BLOOD ORDERABLES Jeaneth mari Result NIDIA [place] [address] [place] [address] * CT Abdomen Pelvis WO Contrast (12/05/2021 11:53 AM DROP WIRER) Anatomical Region Laterality Modality Body N/A Computed Tomogra phy 12/05/2021 12:0 4 PM DROP WIRER Impressions 12/05/2021 12:04 PM DROP WIRER Bone windows show no suspicious lytic or blastic lesions. IMPRESSION: 1. 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 2. 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 Electronically signed by: Ryan Cameron M.D. Narrative 12/05/2021 12:04 PM DROP WIRER EXAMINATION: Computed tomography of the abdomen/pelvis without [...] adeniform shape. 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 Adjacent fat stranding is likely related [...] adeniform shape. 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 Adjacent fat stranding is likely related [...] Recently Relevant to Health Maintenance Insurance MEDICARE [employer] Member Subscriber Plan / Payer (Ef fective 2022-Present) Name:Brandie Morrissey Jr. Relation to Subscriber:Self Name:Brandie Morrissey Jr. Payer ID:[id number] (NAIC) Group ID:Not on file Type: Address: [place] [phone] [employer] [facility] MEDICARE MEDICARE [employer] Care Teams Survey Instrument Operator Relationship Specialty Start Date End Date Mariza Carrion MD [address] [place] [address] PCP - General Family Practice 03/05/23 Efren Hoyos MD Referring Physician Ophthalmology 06/16/19 Dank Hicks MD [address] [facility] [address] [place], [place] [id number] Consulting Physician Cardiology 10/11/21
--- OUTSIDE RECORDS SUMMARY | 2024-12-20 09:36 | XMS_ITS | Clinical Summary ---
Author Organization [facility] Address [address] [place] [phone] Care Team Providers Care Soil Scientist Name Role Phone Efren Hoyos MD Unavailable Dank Hicks MD Unavailable [phone] Mariza Carrion MD Primary Care Provider Allergies [...] with long-term current use of insulin ([facility]) Change sensor every 14 days 9 kit [...] with long-term current use of insulin ([facility]) Use pads 5 times daily 200 each [...] with long-term current use of insulin ([facility]) Use to inject insulin 4x/day 350 each [...] with long-term current use of insulin ([facility]) Use to inject insulin 4x/day 350 each [...] without lower urinary tract symptoms 10/23/2024 Asystole ([facility]) 10/23/2024 Syncope and collapse 10/22/2024 ESRD on hemodialysis ([facility]) 12/09/2019 Assessment & Plan (09/03/2023 9:28 AM DRAFTING CLERK): Chronic problem. [facility] [place]: //Saturdays. LUE fistula. Assessment & Plan (03/05/2023 9:59 AM CDT): Chronic problem. [facility] in [place]: //Saturdays. LUE fistula. ESRD on dialysis 05/22/2019 Hyperlipidemia associated with type 2 diabetes fouzia victoria 05/22/2019 Assessment & Plan (11/24/2024 10:10 AM DRAFTING CLERK): Chronic problem. Controlled on current Atorvastatin 20mg. Last lipid panel: 03/03/24 LDL=33, TG=75. Assessment & Plan (03/03/2024 8:45 AM CDT): Chronic problem. Controlled on current Atorvastatin 20mg. Last lipid panel: 03/05/23 LDL=57, GN=128. Will update labs today. Does not mychart. Verified phone #/address to contact re: results. Assessment & Plan (09/03/2023 9:28 AM DRAFTING CLERK): Chronic problem. Controlled on current Atorvastatin 20mg. Last lipid panel: 03/05/23 LDL=57, AR=532. Assessment & Plan (03/05/2023 9:53 AM CDT): Chronic problem. Controlled on current Atorvastatin 20mg. Last lipid panel: 12/05/21 LDL=36, PW=160. Will update labs today. Verified phone #/address to contact re: results. Assessment & Plan (11/02/2022 2:47 PM DRAFTING CLERK): Chronic, well controlled Low fat Low cholesterol [...] Lipitor Assessment & Plan (09/07/2020 2:26 PM DRAFTING CLERK): Goal of treatment , LDL cholesterol less [...] panel Assessment & Plan (12/09/2019 2:03 PM DRAFTING CLERK): Very high TG Add Vascepa Assessment & [...] statin therapy Coronary artery disease invo lving [place] coronary artery of [place] heart without angina pectoris 10/04/2017 Hx of CABG 10/04/2017 Class 2 severe obesity due t o excess calories with serious comorbidity and body mass index (BMI) of 38.0 to 38.9 in adult 05/22/2017 Assessment & Plan (10/24/2018 12:58 PM DRAFTING CLERK): Making progress with diet efforts. Continue Assessment & Plan (02/08/2018 11:01 AM CDT): Importance of following diet and exercising discussed. Hypertension associated with diabetes 05/22/2017 Assessment & Plan (11/24/2024 10:11 AM DRAFTING CLERK): Chronic problem. Controlled on current losartan 100mg daily, amlodipine 10mg daily Assessment & Plan (03/03/2024 8:45 AM CDT): Chronic problem. BP elevated upon arrival. Controlled on current Carvedilol 25mg bid, losartan 100mg daily. No changes at this time. Will update labs today. Does not mychart. Verified phone #/address to contact re: results. Assessment & Plan (09/03/2023 9:28 AM DRAFTING CLERK): Chronic problem. BP elevated upon arrival. Controlled [...] renal Assessment & Plan (10/24/2018 12:57 PM DRAFTING CLERK): Controlled. Continue current medication plan and follow up with cardiology Assessment & Plan (06/18/2018 2:30 PM CDT): BP controlled on current medication plan. Continue follow up with nephrology Assessment & Plan (02/08/2018 11:00 AM CDT): Continue same medication Assessment & Plan (12/11/2017 10:24 AM DRAFTING CLERK): Goal blood pressure is less than 140/85 [...] mellitus Assessment & Plan (11/24/2024 10:16 AM DRAFTING CLERK): Chronic problem, controlled on current regimen. A1c [...] daily for skin breakdown and infection (sees team physician regularly). Assessment & Plan (03/03/2024 9:19 AM [...] daily for skin breakdown and infection (sees team physician regularly). Assessment & Plan (09/03/2023 9:27 AM DRAFTING CLERK): Chronic problem, controlled on current regimen. A1c [...] daily for skin breakdown and infection (sees team physician regularly). Assessment & Plan (03/05/2023 10:13 AM CDT): Chronic problem, controlled on current regimen. Current medications: Trulicity 1.5mg weekly Lantus 6 units every morning Humalog 4 units before meals For sugars over 160: take 6 units For sugars over 200: take 8 units Seen by [facility] every 4-5 mos; letter sent to get [...] daily for skin breakdown and infection (sees team physician regularly). Will update labs today. Verified phone #/address to contact re: results. Assessment & Plan (11/02/2022 2:43 PM DRAFTING CLERK): Well controlled, with risk of hypoglycemia Insuli [...] 200, take 8 units Start CGM with Qulsaryle Ross Assessment & Plan (02/03/2021 2:59 PM [...] Ross Assessment & Plan (09/07/2020 2:26 PM DRAFTING CLERK): Hba1c was Lab Results Component Value Date [...] Trulicity. Assessment & Plan (12/09/2019 2:03 PM DRAFTING CLERK): Your Hba1c today was: Lab Results Component [...] hypoglycemia. Assessment & Plan (10/24/2018 1:00 PM DRAFTING CLERK): Stable BG pattern 100-140 reported since last adjustment to plan. No change today. BG goals reviewed. Advised to lower Lantus by 2 units if FBG are < 100 x 2 days/wk. For planned activity, reduce Humalog dose by 1/2 at preceding meal. 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 Assessment & Plan (12/11/2017 10:47 AM DRAFTING CLERK): Hba1c was .5.4 Today, 1800 calorie, consistent [...] 05/22/2019 Assessment & Plan (09/19/2018 11:20 AM DRAFTING CLERK): Prevention and treatment of hypoglycemia were discussed [...] therapy Assessment & Plan (10/24/2018 12:57 PM DRAFTING CLERK): Check lipid panel Assessment & Plan (06/18/2018 2:31 PM CDT): Continue statin therapy Assessment & Plan (02/08/2018 11:00 AM CDT): Continue atorvastatin Assessment & Plan (12/11/2017 10:45 AM DRAFTING CLERK): Goal of treatment , LDL cholesterol less [...] Type Department Care Team Description 11/25/2024 Telephone [facility] Diabetes and Endocrinology [address] [place] [phone] Bertha Pinto NP [place] 11/25/2024 Telephone [facility] Diabetes and Endocrinology [address] [place] [phone] Bertha Pinto NP Med Management (Humalog ) 11/24/2024 11:00 AM DRAFTING CLERK Office Visit [facility] Diabetes and Endocrinology [address] [place] [phone] Bertha Pinto NP Type 2 diabetes mellitus with hyperglycemia, with long-term current use of insulin (CMS/HCC) (Primary Dx); Hypertension associated with diabetes (HCC); Hyperlipidemia associated with type 2 diabetes mellitus (HCC) 11/05/2024 1:30 PM DRAFTING CLERK Ancillary Procedure [facility] Cardiology [address] [place] [phone] Cardiac pacemaker in situ; Asystole (CMS/HCC) (HCC); Syncope and collapse; Symptomatic bradycardia 11/04/2024 Orders Only [facility] Cardiology [address] [facility] [address] [place] [phone] Dank Hicks MD Cardiac pacemaker in situ (Primary Dx); Asystole (CMS/HCC) (HCC); Syncope and collapse; Symptomatic bradycardia 10/24/2024 12:58 PM DRAFTING CLERK Anesthesia Event [facility] Cardiac Catheterization Lab [id number] [place] [address] Bahman Arrington MD Sheehan, Whitney Elise, MOLECULAR TECHNOLOGIST 10/24/2024 12:30 PM DRAFTING CLERK - 10/24/2024 2:30 PM DRAFTING CLERK Surgery [facility] Cardiac Catheterization Lab [address] [place], [place] [id number] Ramadan, Darien P. 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, without long-term current use of insulin (CMS/HCC) ([facility]) [E11.22, N18.6, Z99.2]; Syncope and collapse; Type 2 diabetes mellitus with hyperglycemia, with long-term current use of insulin ([facility]) [E11.65, Z79.4]; Asystole (CMS/HCC) ([facility]) [I46.9] Discharge Disposition: Discharge to home or [...] drink = 0.6 oz pur e alcohol) [facility] Utilities Answer Date Recorded In the past 12 months has e [employer] gas, oil, or water [employer] threatened to shut off services in your [...] often do you attend chur ch or latter-day services? Never 10/23/2024 Do you belong to any clubs o r organizations such as buddhism groups, unions, fraternal or athletic groups, or [...] any time in the past [address] [facility] [place] [place], were you homeless or living in a assisted (including now)? No 10/23/2024 Personal Safety Answer Date Recorded Have you ever been in or are you currently in a harmful physical or emotional relationship or is someone making you feel afraid or unsafe? Denies 10/22/2024 Sex and Gender Information Value Date Recorded Sex Assigned at Not on file Legal Sex Male 7:27 PM DRAFTING CLERK Gender Identity Not on file Sexual Orientation Not on file Obstetrics History Last Filed Vital Signs Vital Sign Reading Time Taken Comments Blood Pressure 102/58 11/24/2024 9:58 AM DRAFTING CLERK Pulse 75 11/24/2024 9:58 AM DRAFTING CLERK Temperature 36.3 C (97.3 F) 10/25/2024 2:15 PM DRAFTING CLERK Respiratory Rate 20 11/24/2024 9:58 AM DRAFTING CLERK Oxygen Saturation 100% 10/25/2024 1:15 PM DRAFTING CLERK Inhaled Oxygen Concentration - - Weight 91.3 kg (201 lb 4.5 oz) 10/22/2024 8:29 P M DRAFTING CLERK Height 170.2 cm (5' 7.01 ) 11/24/2024 9:58 AM CS T Body Mass Index 31.52 10/22/2024 8:29 PM DRAFTING CLERK Plan of Treatment Health Maintenance Due Date [...] 10/23/2024, 022 Medical Devices Implanted Type Area Talent Acquisition Sourcer Device Identifier Shelf Expiration Date Model / Serial / Lot Med[employer]onic Inc Micra 2 Av Synchronous Leadless Ventricular Pacemaker [id number] - [id number] - [id number] Implanted:Qty: 1 on 10/24/2024 by Darien Jamil Jr., MD at [facility] [employer] 02/16/2026 [id number] / [id number] / Procedures Procedure Name Priority Date/Time Associated Diagnosis Comments POCT GLUCOSE Routine 11/24/2024 10:01 AM DRAFTING CLERK Type 2 diabetes mellitus with hyperglycemia, with long-term current use of insulin (CMS/HCC) POCT HEMOGLOBIN A1C Routine 11/24/2024 1 0:01 AM DRAFTING CLERK Type 2 diabetes mellitus with hyperglycemia, with long-term current use of insulin (CMS/HCC) DEVICE CHECK - IN OFFICE Routine 11/05/2024 1:22 PM DRAFTING CLERK Cardiac pacemaker in situ Asystole (CMS/HCC) (HCC) Syncope and collapse Symptomatic bradycardia POCT GLUCOSE DEVICE Routine 10/25/2024 1 2:56 PM DRAFTING CLERK POCT GLUCOSE DEVICE Routine 10/25/2024 8 :10 AM DRAFTING CLERK POCT GLUCOSE DEVICE Routine 10/25/2024 7 :43 AM DRAFTING CLERK EGFR Routine 10/25/2024 5:48 AM DRAFTING CLERK BASIC METABOLIC PANEL Routine 10/25/2024 5:48 AM DRAFTING CLERK CBC WITHOUT DIFFERENTIAL Routine 10/25/2024 5:48 AM DRAFTING CLERK POCT GLUCOSE DEVICE Routine 10/25/2024 2 :25 AM DRAFTING CLERK POCT GLUCOSE DEVICE Routine 10/24/2024 8 :31 PM DRAFTING CLERK POCT GLUCOSE DEVICE Routine 10/24/2024 4 :33 PM DRAFTING CLERK POCT GLUCOSE DEVICE Routine 10/24/2024 2 :03 PM DRAFTING CLERK LEADLESS, SINGLE CHAMBER PACEMAKER (PPM) INSERTION Routine 10/24/2024 1:36 PM DRAFTING CLERK Syncope and collapse POCT GLUCOSE DEVICE Routine 10/24/2024 1 1:26 AM DRAFTING CLERK POCT GLUCOSE DEVICE Routine 10/24/2024 7 :30 AM DRAFTING CLERK TSH Routine 10/24/2024 5:12 AM DRAFTING CLERK EGFR Routine 10/24/2024 4:59 AM DRAFTING CLERK BASIC METABOLIC PANEL Routine 10/24/2024 4:59 AM DRAFTING CLERK CBC WITHOUT DIFFERENTIAL Routine 10/24/2024 4:59 AM DRAFTING CLERK POCT GLUCOSE DEVICE Routine 10/24/2024 2 :39 AM DRAFTING CLERK POCT GLUCOSE DEVICE Routine 10/23/2024 1 0:25 PM DRAFTING CLERK POCT GLUCOSE DEVICE Routine 10/23/2024 8 :04 PM DRAFTING CLERK POCT GLUCOSE DEVICE Routine 10/23/2024 5 :42 PM DRAFTING CLERK HEPATITIS B SURFACE ANTIBODY (IMMUNE STATUS) Routine 10/23/2024 2:45 PM DRAFTING CLERK HEPATITIS PANEL, ACUTE Routine 10/23/2024 2:45 PM DRAFTING CLERK POCT GLUCOSE DEVICE Routine 10/23/2024 1 2:57 PM DRAFTING CLERK HEMODIALYSIS Routine 10/23/2024 9:13 AM DRAFTING CLERK POCT GLUCOSE DEVICE Routine 10/23/2024 7 :47 AM DRAFTING CLERK EGFR Routine 10/23/2024 5:27 AM DRAFTING CLERK DIFFERENTIAL AUTO Routine 10/23/2024 5:2 7 AM DRAFTING CLERK MAGNESIUM Routine 10/23/2024 5:27 AM DRAFTING CLERK PHOSPHORUS Routine 10/23/2024 5:27 AM DRAFTING CLERK COMPREHENSIVE METABOLIC PANEL Routine 10/23/2024 5:27 AM DRAFTING CLERK CBC WITH AUTO DIFFERENTIAL Routine 10/23/2024 5:27 AM DRAFTING CLERK POCT GLUCOSE DEVICE Routine 10/23/2024 3 :04 AM DRAFTING CLERK POCT GLUCOSE DEVICE Routine 10/22/2024 1 0:42 PM DRAFTING CLERK POCT GLUCOSE DEVICE Routine 10/22/2024 8 :42 PM DRAFTING CLERK HM DIABETES EYE EXAM Routine 08/13/2024 9:40 [...] Read Routine (OP Routine) 12/05/2021 11:53 AM DRAFTING CLERK End stage renal disease (CMS/HCC) (HCC) from Last 3 Months or Most Recently Relevant to Health Maintenance Results * POCT hemoglobin A1c (11/24/2024 10:01 AM DRAFTING CLERK) Hemoglobin A1C, POC 4.9 4.0 - 5.6 % Blood 11/24/2024 10:0 1 AM DRAFTING CLERK Bertha Pinto NP POINT OF CARE TEST ORDERA BLES Final Result * (ABNORMAL) POCT glucose (11/24/2024 10:01 AM DRAFTING CLERK) Glucose Blood, POC 131 mg/dL Blood 11/24/2024 10:0 1 AM DRAFTING CLERK us Bertha Pinto NP POINT OF CARE TEST ORDERA BLES Final Result * DEVICE CHECK - IN OFFICE (11/05/2024 1:22 PM DRAFTING CLERK) Anatomical Region Laterality Modality Other Narrative 11/13/2024 2:43 PM DRAFTING CLERK Medtronic Micra AV2 Pacemaker. Dx; Symptomatic Bradycardia, [...] Result * POCT glucose (10/25/2024 12:56 PM DRAFTING CLERK) Glucose, POC 74 70 - 199 mg/dL Blood 10/25/2024 12:5 6 PM DRAFTING CLERK 10/25/2024 12:56 PM DRAFTING CLERK Nabeel Paez DO LAB POCT ORDERABLES - DEVICE Final Result Performing Organization Address City/[facility] Co de Phone Number NIDIA COTE [address] [address] [facility] [employer] [place] [address] * POCT glucose (10/25/2024 8:10 AM DRAFTING CLERK) Glucose, POC 100 70 - 199 mg/dL Blood 10/25/2024 8:10 AM DRAFTING CLERK 10/25/2024 8:10 AM DRAFTING CLERK [facility] POCT ORDERABLES - DEVICE Final Result Performing Organization Address [facility] de Phone Number NIDIA COTE [address] [address] [facility] [employer] [place] [address] * POCT glucose (10/25/2024 7:43 AM DRAFTING CLERK) Glucose, POC 78 70 - 199 mg/dL Blood 10/25/2024 7:43 AM DRAFTING CLERK 10/25/2024 7:43 AM DRAFTING CLERK Nabeel Richard Philippe [facility] POCT ORDERABLES - DEVICE Final Result Performing Organization Address [facility] de Phone Number NIDIA COTE [address] [address] [facility] [employer] [place] [address] * (ABNORMAL) eGFR (10/25/2024 5:48 AM DRAFTING CLERK) eGFR 9(L) >=60 mL/min/1. 73 m2 Comment: [...] last reviewed 2021. Blood 10/25/2024 5:48 AM DRAFTING CLERK 10/25/2024 6:03 AM DRAFTING CLERK Raisa Scherer FRAME FIXER LAB BLOOD ORDERABLES Jeaneth l Result Performing Organization Address [facility]/ZIP Co de Phone Number NIDIA COTE [address] [place] [address] * (ABNORMAL) CBC without differential (10/25/2024 5:48 AM DRAFTING CLERK) WBC 4.6 3.8 - 9.9 K/cumm Hgb [...] K/cumm [facility] Blood 10/25/2024 5:48 AM DRAFTING CLERK 10/25/2024 6:03 AM DRAFTING CLERK Raisa Scherer NP LAB BLOOD ORDERABLES Jeaneth l Result Performing Organization Address City/[facility]/ZIP Co de Phone Number NIDIA COTE [address] [place] [place] [address] * (ABNORMAL) Basic metabolic panel (10/25/2024 5:48 AM DRAFTING CLERK) Sodium 135 135 - 145 mmol/L Potassium, [...] 2022. Calcium 8.8 8.5 - 10.3 mg/dL [facility] Blood 10/25/2024 5:48 AM DRAFTING CLERK 10/25/2024 6:03 AM DRAFTING CLERK Raisa Scherer FRAME FIXER LAB BLOOD ORDERABLES Jeaneth l Result [facility] [address] Department [place] [address] * POCT glucose (10/25/2024 2:25 AM DRAFTING CLERK) Glucose, POC 81 70 - 199 mg/dL Blood 10/25/2024 2:25 AM DRAFTING CLERK 10/25/2024 2:25 AM DRAFTING CLERK Nabeel Paez DO LAB POCT ORDERABLES - DEVICE Final Result [facility] [address] [address] [facility] [employer] [place] [address] * POCT glucose (10/24/2024 8:31 PM DRAFTING CLERK) Glucose, POC 120 70 - 199 mg/dL Blood 10/24/2024 8:31 PM DRAFTING CLERK 10/24/2024 8:31 PM DRAFTING CLERK Nabeel [facility] POCT ORDERABLES - DEVICE Final Result Performing Organization Address [facility] Co de Phone Number NIDIA COTE [address] [address] [facility] [employer] [place] [address] * POCT glucose (10/24/2024 4:33 PM DRAFTING CLERK) Glucose, POC 85 70 - 199 mg/dL Blood 10/24/2024 4:33 PM DRAFTING CLERK 10/24/2024 4:33 PM DRAFTING CLERK [facility] POCT ORDERABLES - DEVICE Final Result Performing Organization Address [facility] de Phone Number NIDIA COTE [address] [address] [facility] [employer] [place] [address] * POCT glucose (10/24/2024 2:03 PM DRAFTING CLERK) Glucose, POC 83 70 - 199 mg/dL Blood 10/24/2024 2:03 PM DRAFTING CLERK 10/24/2024 2:03 PM DRAFTING CLERK [facility]el [facility] POCT ORDERABLES - DEVICE Final Result Performing Organization Address [facility] Co de Phone Number NIDIA COTE [address] [address] [facility] [employer] [place] [address] * POCT glucose (10/24/2024 11:26 AM DRAFTING CLERK) Glucose, POC 85 70 - 199 mg/dL Blood 10/24/2024 11:2 6 AM DRAFTING CLERK 10/24/2024 11:26 AM DRAFTING CLERK Nabeel Richard Philippe [facility] POCT ORDERABLES - DEVICE Final Result Performing Organization Address [facility] Co de Phone Number NIDIA COTE [address] [address] [facility] [employer] [place] [address] * POCT glucose (10/24/2024 7:30 AM DRAFTING CLERK) Pathologist [facility] Glucose, POC 94 70 - 199 mg/dL Blood 10/24/2024 7:30 AM DRAFTING CLERK 10/24/2024 7:30 AM DRAFTING CLERK Nabeel Richard Philippe [facility] POCT ORDERABLES - DEVICE Final Result Performing Organization Address [facility] de Phone Number NIDIA COTE [address] [address] [facility] [employer] [place] [address] * TSH (10/24/2024 5:12 AM DRAFTING CLERK) [facility] Thyroid Stimulating Hormone 0.48 0.30 - 4.20 mcIUnit/mL Blood 10/24/2024 5:12 AM DRAFTING CLERK 10/24/2024 5:23 AM DRAFTING CLERK Sherrill Christianson MD LAB BLOOD ORDERABLES Final Result Performing Organization Address [facility] [place] [address] [address] [employer] [place] [address] * (ABNORMAL) eGFR (10/24/2024 4:59 AM DRAFTING CLERK) eGFR 13(L) >=60 mL/min/1. 73 m2 Comment: [...] last reviewed 2021. Blood 10/24/2024 4:59 AM DRAFTING CLERK 10/24/2024 5:23 AM DRAFTING CLERK Raisa Scherer NP LAB BLOOD ORDERABLES Jeaneth mari Result [facility] [address] Department [place] [address] * (ABNORMAL) CBC without differential (10/24/2024 4:59 AM DRAFTING CLERK) WBC 5.1 3.8 - 9.9 K/cumm Hgb 8.9(L) 13.0 - 17.5 g/dL [facility] Hct 29.9(L) 38.9 - 50.3 % [facility] Plt 188 150 - 400 K/cumm [facility] MPV 10.2 9.1 - 12.3 fL [facility] RBC 2.93(L) 4.30 - 5.80 M/cumm [facility] MCV 102.0(H) 81.3 - 96.4 fL [facility] MCH 30.4 27.1 - 33.3 pg [facility] MCHC 29.8(L) 32.3 - 35.7 g/dL [facility] RDW CV 16.8(H) 11.1 - 14.9 % [facility] RDW SD 62.6(H) 35.7 - 48.1 fL [facility] NRBC abs 0.00 0.00 - 0.01 K/cumm [facility] Blood 10/24/2024 4:59 AM DRAFTING CLERK 10/24/2024 5:20 AM DRAFTING CLERK Raisa Scherer FRAME FIXER LAB BLOOD ORDERABLES Jeaneth l Result [place] [address] Department [place] [address] * (ABNORMAL) Basic metabolic panel (10/24/2024 4:59 AM DRAFTING CLERK) Sodium 136 135 - 145 mmol/L Potassium, pl 4.2 3.3 - 4.9 mmol/L [facility] Chloride 94(L) 97 - 110 mmol/L [facility] CO2 31 22 - 32 mmol/L [facility] Anion gap 11 2 - 15 mmol/L [facility] BUN 20 6 - 25 mg/dL [facility] Creatinine 4.30(H) 0.80 - 1.30 mg/dL [facility] Glucose 80 70 - 199 mg/dL [facility] Comment: Interpretive Data Fasting glucose >/= [...] 2022. Calcium 9.1 8.5 - 10.3 mg/dL [facility] Blood 10/24/2024 4:59 AM DRAFTING CLERK 10/24/2024 5:20 AM DRAFTING CLERK Raisa Scherer FRAME FIXER LAB BLOOD ORDERABLES Jeaneth l Result Performing Organization Address City/[facility]/ZIP Co de Phone Number NIDIA COTE [address] Department [place] [employer] [place] [address] * POCT glucose (10/24/2024 2:39 AM DRAFTING CLERK) Glucose, POC 123 70 - 199 mg/dL Blood 10/24/2024 2:39 AM DRAFTING CLERK 10/24/2024 2:39 AM DRAFTING CLERK Nabeel Paez LAB POCT ORDERABLES - DEVICE Final Result Performing Organization Address [facility] Co de Phone Number NIDIA COTE [address] [address] [facility] [employer] [place] [address] * POCT glucose (10/23/2024 10:25 PM DRAFTING CLERK) Glucose, POC 173 70 - 199 mg/dL Blood 10/23/2024 10:2 5 PM DRAFTING CLERK 10/23/2024 10:25 PM DRAFTING CLERK Nabeel Ramos Philippe [facility] POCT ORDERABLES - DEVICE Final Result Performing Organization Address [facility] Phone Number NIDIA COTE [address] [address] [facility] [employer] [place] [address] * POCT glucose (10/23/2024 8:04 PM DRAFTING CLERK) Glucose, POC 70 70 - 199 mg/dL Blood 10/23/2024 8:04 PM DRAFTING CLERK 10/23/2024 8:04 PM DRAFTING CLERK Nabeel Ramos Philippe [facility] POCT ORDERABLES - DEVICE Final Result Performing Organization Address [facility] Hospital/[facility] de Phone Number NIDIA COTE [id number] [address] [facility] [employer] [place] [address] * POCT glucose (10/23/2024 5:42 PM DRAFTING CLERK) Glucose, POC 90 70 - 199 mg/dL Blood 10/23/2024 5:42 PM DRAFTING CLERK 10/23/2024 5:42 PM DRAFTING CLERK Nabeel Paez LAB POCT ORDERABLES - DEVICE Final Result Performing Organization Address [facility] Co de Phone Number NIDIA [id number] [facility] [facility] [employer] [place] [address] * Hepatitis panel, acute Blood (10/23/2024 2:45 PM DRAFTING CLERK) Hep A IgM Nonreactive Nonreactive Comment: Interpretive Data: If Hep A IgM Ab is reported as Equivocal, a new sample should be drawn in two weeks for testing. Current interpretive data was last revised on 20. Hep B core IgM Nonreactive Nonreactive [facility] Comment: Interpretive Data If HepB Core IgM Ab is reported as Equivocal, a new sample should be drawn in two weeks for testing. Current interpretive data was last revised on 20. Hep C Ab Nonreactive Nonreactive [facility] Comment: Interpretive Data Nonreactive: [...] last revised on 2020. HepBsAg Nonreactive Nonreactive [facility] Blood 10/23/2024 2:45 PM DRAFTING CLERK 10/23/2024 2:46 PM DRAFTING CLERK Sherrill Christianson MD LAB MICROBIOLOGY - GENERAL ORDERABLES Final Result NIDIA [id number] [address] [place] [address] * Hepatitis B surface antibody (immune status) Blood (10/23/2024 2:45 PM DRAFTING CLERK) Pathologist [facility] [place] HBsAb (immune status) Nonreactive Comment: Interpretive Data [...] revised on 20. Blood 10/23/2024 2:45 PM DRAFTING CLERK 10/23/2024 2:46 PM DRAFTING CLERK Sherrill Christianson MD LAB MICROBIOLOGY - GENERAL ORDERABLES Final Result Performing Organization Address [facility] Co de Phone Number NIDIA COTE [id number] [address] [employer] [place] [address] * (ABNORMAL) POCT glucose (10/23/2024 12:57 PM DRAFTING CLERK) Glucose, POC 69(L) 70 - 199 mg/dL Blood 10/23/2024 12:5 7 PM DRAFTING CLERK 10/23/2024 12:57 PM DRAFTING CLERK us Nabeel Paez DO LAB POCT ORDERABLES - DEVICE Final Result Performing Organization Address [facility] [place] [address] [address] Department [employer] [place] [address] * POCT glucose (10/23/2024 7:47 AM DRAFTING CLERK) Glucose, POC 81 70 - 199 mg/dL Blood 10/23/2024 7:47 AM DRAFTING CLERK 10/23/2024 7:47 AM DRAFTING CLERK Sylvester Engel MD LAB POCT ORDERABLES - SALO CE Final Result Performing Organization Address [facility] [place] [address] [address] [employer] [place] [address] * (ABNORMAL) eGFR (10/23/2024 5:27 AM DRAFTING CLERK) eGFR 11(L) >=60 mL/min/1. 73 m2 Comment: [...] last reviewed 2021. Blood 10/23/2024 5:27 AM DRAFTING CLERK 10/23/2024 5:32 AM DRAFTING CLERK us Raisa Scherer NP LAB BLOOD ORDERABLES Jeaneth mari Result NIDIA [id number] [address] [place] [address] * (ABNORMAL) Differential, auto (10/23/2024 5:27 AM DRAFTING CLERK) Neutrophil abs 4.1 1.5 - 6.5 K/cumm Imm gran abs 0.1 0.0 - 0.1 K/cumm [facility] Lymphocyte abs 0.4(L) 0.8 - 3.3 K/cumm [facility] Monocyte abs 0.7 0.2 - 0.8 K/cumm [facility] Eosinophil abs 0.1 0.0 - 0.5 K/cumm [facility] Basophil abs 0.0 0.0 - 0.1 K/cumm [facility] Neutrophil pct 76.5 % NIDIA Comment: Interpretive [...] revised on 2018. Monocyte pct 12.7 % [facility] Comment: Interpretive Data Percent cell count reference ranges are not reported, since discordance with absolute values may lead to misinterpretation of CBC data. Current Interpretive Data was last revised on 2018. Eosinophil pct 1.1 % [facility] Comment: Interpretive Data Percent cell count reference ranges are not reported, since discordance with absolute values may lead to misinterpretation of CBC data. Current Interpretive Data was last revised on 2018. Basophil pct 0.7 % [facility] Comment: Interpretive Data Percent cell count reference ranges are not reported, since discordance with absolute values may lead to misinterpretation of CBC data. Current Interpretive Data was last revised on 2018. Blood 10/23/2024 5:27 AM DRAFTING CLERK 10/23/2024 5:30 AM DRAFTING CLERK us Raisa Scherer FRAME FIXER LAB BLOOD ORDERABLES Jeaneth mari Result [facility] [address] [address] Department [place] [address] * (ABNORMAL) CBC with auto differential (10/23/2024 5:27 AM DRAFTING CLERK) WBC 5.3 3.8 - 9.9 K/cumm Hgb 8.8(L) 13.0 - 17.5 g/dL [facility] Hct 28.9(L) 38.9 - 50.3 % [facility] Plt 179 150 - 400 K/cumm [facility] MPV 10.4 9.1 - 12.3 fL [facility] RBC 2.86(L) 4.30 - 5.80 M/cumm [facility] MCV 101.0(H) 81.3 - 96.4 fL [facility] MCH 30.8 27.1 - 33.3 pg [facility] MCHC 30.4(L) 32.3 - 35.7 g/dL [facility] RDW CV 17.2(H) 11.1 - 14.9 % [facility] RDW SD 63.7(H) 35.7 - 48.1 fL [facility] NRBC abs 0.00 0.00 - 0.01 K/cumm [facility] Blood 10/23/2024 5:27 AM DRAFTING CLERK 10/23/2024 5:30 AM DRAFTING CLERK Raisa Scherer FRAME FIXER LAB BLOOD ORDERABLES Jeaneth l Result Performing Organization Address [facility] de Phone Number NIDIA [id number] [address] [facility] [employer] [place] [address] * Phosphorus (10/23/2024 5:27 AM DRAFTING CLERK) Pathologist [facility] [place] Phosphorus, pl 4.5 2.3 - 4.5 mg/dL Blood 10/23/2024 5:27 AM DRAFTING CLERK 10/23/2024 5:30 AM DRAFTING CLERK Raisa Scherer NP LAB BLOOD ORDERABLES Jeaneth l Result Performing Organization Address [facility] de Phone Number NIDIA [id number] [address] [facility] [employer] [place] [address] * Magnesium (10/23/2024 5:27 AM DRAFTING CLERK) Pathologist [facility] [place] Magnesium 2.1 1.4 - 2.5 mg/dL Blood 10/23/2024 5:27 AM DRAFTING CLERK 10/23/2024 5:30 AM DRAFTING CLERK Raisa Scherer FRAME FIXER LAB BLOOD ORDERABLES Jeaneth l Result Performing Organization Address [facility] de Phone Number NIDIA [id number] [address] [facility] [employer] [place] [address] * (ABNORMAL) Comprehensive metabolic panel (10/23/2024 5:27 AM DRAFTING CLERK) Sodium 137 135 - 145 mmol/L Potassium, [...] Units/L [facility] Blood 10/23/2024 5:27 AM DRAFTING CLERK 10/23/2024 5:30 AM DRAFTING CLERK Raisa Scherer FRAME FIXER LAB BLOOD ORDERABLES Jeaneth l Result Performing Organization Address City/[facility]/ZIP Co de Phone Number NIDIA [address] [address] [place] [place] [place] [address] * POCT glucose (10/23/2024 3:04 AM DRAFTING CLERK) [facility] Signature Glucose, POC 84 70 - 199 mg/dL Blood 10/23/2024 3:04 AM DRAFTING CLERK 10/23/2024 3:04 AM DRAFTING CLERK Sylvester Engel MD LAB POCT ORDERABLES - SALO CE Final Result Performing Organization Address City/[facility]/ZIP Co de Phone Number NIDIA [address] [address] [facility] [employer] [place] [address] * POCT glucose (10/22/2024 10:42 PM DRAFTING CLERK) Glucose, POC 101 70 - 199 mg/dL Blood 10/22/2024 10:4 2 PM DRAFTING CLERK 10/22/2024 10:42 PM DRAFTING CLERK Sylvester Engel MD LAB POCT ORDERABLES - SALO CE Final Result [facility] [address] [address] [facility] [employer] [place] [address] * POCT glucose (10/22/2024 8:42 PM DRAFTING CLERK) Glucose, POC 114 70 - 199 mg/dL Blood 10/22/2024 8:42 PM DRAFTING CLERK 10/22/2024 8:42 PM DRAFTING CLERK Guru Miller MD LAB POCT ORDERABLES - DEVICE Final Result Performing Organization Address [facility] Co de Phone Number [facility] [address] [place] [address] * (ABNORMAL) DIABETES EYE EXAM (08/13/2024 9:40 AM CDT) Historical Provider [facility] MA[facility]TE[facility] Edited Result - Final * (ABNORMAL) [...] URINE ORDERABLES Jeaneth mari Result NIDIA COTE [address] [address] [place] [address] * (ABNORMAL) Lipid panel (03/03/2024 9:29 AM [...] BLOOD ORDERABLES Jeaneth l Result NIDIA COTE [address] [address] [place] [address] * CT Abdomen Pelvis WO Contrast (12/05/2021 11:53 AM DRAFTING CLERK) Anatomical Region Laterality Modality Body N/A Computed Tomogra phy 12/05/2021 12:0 4 PM DRAFTING CLERK Impressions 12/05/2021 12:04 PM DRAFTING CLERK Bone windows show no suspicious lytic or blastic lesions. IMPRESSION: 1. 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 2. 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 Electronically signed by: Polly Tucker 12/05/2021 12:04 PM DRAFTING CLERK EXAMINATION: Computed tomography of the abdomen/pelvis without [...] adeniform shape. There is atrophy of both [place] kidneys. Adjacent fat stranding is likely related [...] adeniform shape. There is atrophy of both [place] kidneys. Adjacent fat stranding is likely related [...] Recently Relevant to Health Maintenance Insurance MEDICARE [employer] FOR LIFE MEDICARE MEDICARE [facility] FOR LIFE Care Teams Soil Scientist Relationship Specialty Start Date End Date Mariza Carrion MD [address] [place] [address] PCP - General Family Practice 03/05/23 Efren Hoyos MD Referring Physician Ophthalmology 06/16/19 Dank Hicks MD [address] [place] [address] Consulting Physician Cardiology 10/11/21
[2024-12-20 09:38] LABS: Influenza A QL RT-PCR Positive (Negative); Influenza B QL RT-PCR Negative (Negative); RSV RNA, RT-PCR Negative (Negative); SARS-CoV-2 RNA PCR Negative (Negative)
[2024-12-20 09:39] LABS: Anisocytosis 1+; Hypochromasia 1+; Platelet Estimate Adequate (Adequate)
[2024-12-20 09:40] LABS: Schistocytes None Seen
[2024-12-20 10:16] LABS: Alanine Aminotransferase 23 U/L (6-50); Albumin Level 3.5 g/dL (3.5-5.1); Alkaline Phosphatase 79 U/L (38-126); Anion Gap 13 mmol/L (4-12); Aspartate Amino Transferase 19 U/L (17-59); Bilirubin,Total 0.5 mg/dL (0.2-1.3); Blood Urea Nitrogen 57 mg/dL (9-20); Calcium 8.1 mg/dL (8.4-10.2); Carbon Dioxide 28 mmol/L (22-30); Chloride 88 mmol/L (98-107); Estimated CRCL calculation 11 ml/min; Estimated Glomerular Filt Rate 10; Glucose 197 mg/dL (65-110); Potassium 4.2 mmol/L (3.4-5.0); Sodium 129 mmol/L (137-145)
--- NOTE | 2024-12-20 10:52 | ED_ITS ---
HPI - General Adult General Chief complaint: Weakness Stated complaint: weakness/diarrhea, GLF Time Seen by Provider: 12/20/24 08:14 History of Present Illness HPI narrative: Patient is a 79-year-old male who presents ER with weakness and falling. Had a fall at his care center but did not strike his head or lose consciousness. He receives dialysis Sunday//Sunday. He reports last night began having diarrhea which is making him weak. He has had at least 7 episodes in reports that he was told there is some blood in his stool but he was unable to see a. He reports he takes a baby aspirin and no other blood thinning medications. Reports productive cough that is chronic no acute dyspnea. Related Data Home Medications ?Medication ?Instructions ?Recorded ?Confirmed ?Last Taken ?Type aspirin 81 mg tablet,delayed 81 mg PO DAILY 10/31/21 12/20/24 12/08/24 History release carvedilol 25 mg tablet 25 mg PO BID 10/31/21 12/09/24 10/21/24 History dulaglutide 1.5 mg/0.5 mL 1.5 mg subcut WEEKLY 10/31/21 12/09/24 10/21/24 History subcutaneous pen injector (Trulicity) insulin lispro 100 unit/mL 4 unit subcut .TIDAC 10/31/21 12/09/24 10/21/24 History subcutaneous pen loratadine 10 mg tablet (Claritin) 10 mg PO PRN 10/31/21 12/09/24 10/21/24 History amlodipine 10 mg tablet 10 mg PO DAILY 11/07/23 12/09/24 12/09/24 History insulin glargine 100 unit/mL (3 6 unit subcut DAILY 11/07/23 12/09/24 10/21/24 History mL) subcutaneous pen (Lantus Solostar U-100 Insulin) sevelamer HCl 800 mg tablet 3,200 mg PO TID 11/07/23 12/09/24 10/21/24 History cinacalcet 90 mg PO DAILY 12/12/23 12/09/24 10/21/24 History Allergies Allergy/AdvReac Type Severity Reaction Status Date / Time No Known Allergies Allergy Verified 12/20/24 08:13 Review of Systems 2 Review of Systems: All systems reviewed & are unremarkable except as noted in HPI and below Constitutional: Constitutional: Reports no additional constitutional complaints Cardiovascular: Cardiovascular: Reports no additional cardiovascular complaints Respiratory: Respiratory: Reports no additional respiratory complaints Gastrointestinal: Gastrointestinal: Reports no additional gastrointestinal complaints Musculoskeletal: Musculoskeletal: Reports no additional musculoskeletal complaints ON LICENSE OF [facility] Past Medical History Medical History Bilateral shoulder pain Sinus pause (~09/2024) Obstructive sleep apnea Insulin dependent type 2 diabetes mellitus Chronic obstructive pulmonary disease Coronary artery disease Benign prostatic hyperplasia Peripheral vascular disease Internal hemorrhoid, bleeding Gastritis Anemia End-stage renal disease on hemodialysis History of colon polyps Environmental allergies Vitamin D deficiency Dyslipidemia Essential (primary) hypertension Surgical History Surgical History History of cardiac pacemaker (~10/2024) due to symptomatic sinus pauses causing syncope History of hemorrhoidectomy Anorectal evaluation under anesthesia and excisional hemorrhoidectomy x3 12/14/23 SAW S/P peripheral artery angioplasty (~03/2023) status post balloon angioplasty of bilateral common and external iliac arteries status post left iliofemoral endarterectomy Arteriovenous fistula of left upper extremity (~2017) History of appendectomy (~1962) History of coronary artery bypass graft (~2013) Family History Family History Mother Diabetes mellitus Acute myocardial infarction Family history of congestive heart failure Father Hypertension Social History Social History Social History: Surrogate medical decision maker: Wilian Morrissey, sibling. Code status: Full code. Caffeine- daily Smoking packs per day: 10 Smoking cigarettes per day: 200.0 Years smoked: 10 Smoking pack-years: 100.00 Smoking status: Former smoker Tobacco type: cigarettes and pipe Second hand tobacco smoke exposure: No Smoking end date: 10/22/11 Alcohol intake: never Drinks per week: 1 Alcohol use details: Maybe 2-3 per year Substance use: never Substance use type: does not use Do You Feel Safe in your Home?: Yes Lack of Transportation: No Lack of Food: Never True Current Housing: I Have Housing Concerned About Future Housing: No Difficulty Paying Gas/Electric Bills: No Difficulty Paying for Meds: No Currently Unemployed: No Education: Associate Degree Difficulty w/ Childcare or Family Care: No Living arrangements: with family Occupation/Education: retired Additional occupation/education comments: Retired from the [employer]. Spiritual care concerns: No Agree to blood products: Yes Exam 2 Narrative: GENERAL: Fatigued-appearing, well-nourished, and in no acute distress. HEAD: Normocephalic, atraumatic. ENT: Mucous membranes moist. NECK: Supple. CHEST: Basilar rales. No respiratory distress. HEART: Irregular regular rate and rhythm that is tachycardic. Normal peripheral pulses. ABDOMEN: Soft, nontender, nondistended. Digital rectal exam without mayra blood, watery stool noted, occult positive with bedside testing EXTREMITIES: Normal range of motion. 1+ edema. SKIN: Warm, dry, no rash. Quarter-size left heel decubitus ulcer. NEURO: Alert and oriented x3. PSYCH: Normal mood and affect. Course Course Emergency Course: Among concerned about the occult blood in the patient's to list his hemoglobin is at its baseline. Suspect it is hemorrhagic colitis related to his diarrhea. Discussed with Dr. Tang who will arrange dialysis. Admit to hospitalist service. Family would like to talk care coordination because they feel like they need more help than what he is getting at [facility]. Patient received Levaquin on last admission so C diff will be added. Vital Signs Vital signs: Vital Signs Temperature 97.8 F 12/20/24 08:13 Temperature 98.2 F 12/20/24 14:59 Pulse Rate 120 H 12/20/24 18:00 Respiratory Rate 22 H 12/20/24 14:59 Blood Pressure 133/66 12/20/24 18:00 Pulse Oximetry 99 12/20/24 14:59 Oxygen Delivery Nasal Cannula 12/20/24 12:50 Oxygen Flow Rate 3 12/20/24 14:59 Medical Decision Making Vital Signs Vital Signs: Vital Signs Temperature 97.8 F 12/20/24 08:13 Temperature 98.2 F 12/20/24 14:59 Pulse Rate 120 H 12/20/24 18:00 Respiratory Rate 22 H 12/20/24 14:59 Blood Pressure 133/66 12/20/24 18:00 Pulse Oximetry 99 12/20/24 14:59 Oxygen Delivery Nasal Cannula 12/20/24 12:50 Oxygen Flow Rate 3 12/20/24 14:59 Lab Data 12/20/24 08:58 12/20/24 09:48 Labs: Lab Results 12/20/24 12/20/24 12/20/24 Range/Units 08:29 08:58 09:48 WBC 13.2 H (4.5-10.0) K/mm3 RBC 3.78 L (4.6-6.20) M/mm3 Hgb 10.1 L (14.0-18.0) g/dL Hct 33.0 L (42.0-52.0) % MCV 87.3 (80-100) fl MCH 26.7 (26-34) pg MCHC 30.6 L (32-36) g/dl RDW 17.8 H (11.5-14.5) % Plt Count 238 (150-375) k/mm3 MPV 10.8 H (7.4-10.4) fl Immature Gran % (Auto) 0.8 H (0-0.5) % Neut % (Auto) 94.3 H (45.5-73.1) % Lymph % (Auto) 0.5 L (18.3-44.2) % [place] % (Auto) 3.6 (2.6-8.5) % Eos % (Auto) 0.5 (0-4.4) % Baso % (Auto) 0.3 (0.2-1.2) % Lymph # (Auto) 0.06 L (0.9-3.2) K/mm3 [place] # (Auto) 0.5 (0.1-0.6) K/mm3 Eos # (Auto) 0.1 (0-0.3) K/mm3 Baso # (Auto) 0.0 (0.0-0.1) K/mm3 Abs Immat Gran (auto) 0.10 H (0.00-0.031) K/mm3 Absolute Neuts (auto) 12.5 H (1.3-6.7) K/mm3 Absolute Nucleated RBC 0.000 (0.0-0.012) K/mm3 Band Neutrophils % Not Reportable Nucleated RBC % 0.0 (0.0-0.2) % Platelet Estimate Adequate (Adequate) Hypochromasia 1+ Anisocytosis 1+ Schistocytes None seen Sodium 129 L (137-145) mmol/L Potassium 4.2 (3.4-5.0) mmol/L Chloride 88 L (98-107) mmol/L Carbon Dioxide 28 (22-30) mmol/L Anion Gap 13 H (4-12) mmol/L BUN 57 H D (9-20) mg/dL Creatinine 5.65 H (0.7-1.3) mg/dL Estim Creat Clear Calc 11 ml/min Estimated GFR 10 L (59 - ) Glucose 197 H (65-110) mg/dL Calcium 8.1 L (8.4-10.2) mg/dL Total Bilirubin 0.5 (0.2-1.3) mg/dL AST 19 (17-59) U/L ALT 23 (6-50) U/L Alkaline Phosphatase 79 (38-126) U/L Total Protein 6.0 L (6.3-8.2) g/dL Albumin 3.5 (3.5-5.1) g/dL Influenza A (RT-PCR) Positive A (Negative) Influenza B (RT-PCR) Negative (Negative) RSV (RT-PCR) Negative (Negative) SARS-CoV-2 RNA (RT-PCR) Negative (Negative) Imaging Data Radiologist's impression: ITS Impressions Chest X-Ray 12/20/24 09:08 IMPRESSION: 1. Pulmonary vascular congestion and mild pulmonary edema at the lung bases. ECG Data EKG #1: ECG completion date: 12/20/24 ECG completion time: 08:12 EKG Interpretation: tachycardia (103), atrial fibrillation, non-specific ST changes, widened QRS and RBBB Discharge Plan Discharge Clinical Impression: Diarrhea, Weakness, Volume overload Patient Disposition: Still a Patient Condition: Stable
--- NOTE | 2024-12-20 11:01 | PM.CNNEP ---
Assessment and Plan Assessment and plan (1) End-stage renal disease on hemodialysis: Code(s): N18.6 - End stage renal disease; Z99.2 - Dependence on renal dialysis Status: Acute Assessment and Plan: The patient has end-stage renal disease. This is due to diabetes and hypertension. Vascular disease is probably playing a role as well. The patient is due for dialysis today. His potassium is okay so I will use a 3K bath. Volume status is in excess and so will remove some fluid today as tolerated. His blood pressure is quite high today so we should be able to take some fluid off (2) Hypertension: Code(s): I10 - Essential (primary) hypertension Status: Acute Assessment and Plan: the patient's blood pressure is high. Will give him his home medications but also will remove fluid in dialysis. (3) Diabetes: Code(s): E11.9 - Type 2 diabetes mellitus without complications Status: Acute Assessment and Plan: Management per hospitalists (4) Anemia: Code(s): D64.9 - Anemia, unspecified Status: Acute Assessment and Plan: hemoglobin is 10.1. His blood pressure is a bit high right now. Will hold off on EPO for today but will give some tomorrow if his blood pressure is improved. (5) Acute exacerbation of CHF (congestive heart failure): Code(s): I50.9 - Heart failure, unspecified Status: Acute Assessment and Plan: The patient has volume overload. He is not eating very well so may have lost real weight. We have been adjusting his dry weight at the clinic but may need more adjustment. (6) Peripheral vascular disease: Code(s): I73.9 - Peripheral vascular disease, unspecified Status: Acute Assessment and Plan: He had stents placed in his lower extremities. This has been doing okay apparently. (7) CARITO (obstructive sleep apnea): Code(s): G47.33 - Obstructive sleep apnea (adult) (pediatric) Status: Acute (8) Dyslipidemia: Code(s): E78.5 - Hyperlipidemia, unspecified Status: Acute Assessment and Plan: Will check his cholesterol (9) Influenza: Code(s): J11.1 - Influenza due to unidentified influenza virus with other respiratory manifestations Status: Acute Assessment and Plan: he is being started on Tamiflu History of Present Illness Reason for Consult Consult date: 12/20/24 Chief Complaint Chief complaint: weakness/diarrhea, GLF History of Present Illness Narrative: Sam is a very pleasant 79-year-old gentleman who has multiple medical problems including end-stage renal disease on dialysis 3 times a week on Tuesdays and Saturdays, type 2 diabetes, hypertension, COPD, sleep apnea, anemia, renal osteodystrophy, coronary artery disease, pre of sudden , Peripheral vascular disease, and hyperlipidemia. the patient has been in and out of the hospital. Last year he had who a procedure to improve circulation to the legs and he had sudden during that AIF. The patient was in the hospital for while getting all that sorted out. For that he did fairly well although recently was in the hospital with Influenza amd congestive heart failure his blood pressure was a little bit soft but they were able to take fluid off. he was discharged and at [facility] were able to continue to remove fluid. However the patient had become more run down and had been placed in a facility to get stronger because his brother could no longer handle him at home. At [facility] there was some concern that he was not getting his medications but this was all work doubt knee was getting medication his blood pressure was good and his sugars were good. The patient was getting some therapy apparently. Today the patient was going to go to dialysis but was unable to get into the van for transportation he called his brother who came over to get him to take him to dialysis, but he fell and was short of breath so he came to the ER instead. Evaluation shows volume overload. He was retested and has the flu so is going to be admitted. Called the dialysis nurse and she is going to do his dialysis later today. Review of Systems Constitutional: Constitutional: Reports no additional constitutional complaints Eyes: Eyes: Reports no additional eye complaints ENT: Reports system reviewed and no additional complaints, except as documented Cardiovascular: Cardiovascular: Reports no additional cardiovascular complaints Respiratory: Respiratory: Reports no additional respiratory complaints Gastrointestinal: Gastrointestinal: Reports no additional gastrointestinal complaints Genitourinary: Genitourinary: Reports no additional male genitourinary complaints Musculoskeletal: Musculoskeletal: Reports no additional musculoskeletal complaints Integumentary/Breasts: Skin/Breast: Reports system reviewed and no additional complaints, except as docu Neurologic: Reports system reviewed and no additional complaints, except as documented Psychiatric: Psychiatric: Reports no additional psychiatric complaints Endocrine: Endocrine: Reports no additional endocrine complaints [facility] Past Medical History Medical History Bilateral shoulder pain Sinus pause (~09/2024) Obstructive sleep apnea Insulin dependent type 2 diabetes mellitus Chronic obstructive pulmonary disease Coronary artery disease Benign prostatic hyperplasia Peripheral vascular disease Internal hemorrhoid, bleeding Gastritis Anemia End-stage renal disease on hemodialysis History of colon polyps Environmental allergies Vitamin D deficiency Dyslipidemia Essential (primary) hypertension Surgical History Surgical History History of cardiac pacemaker (~10/2024) due to symptomatic sinus pauses causing syncope History of hemorrhoidectomy Anorectal evaluation under anesthesia and excisional hemorrhoidectomy x3 12/14/23 SAW S/P peripheral artery angioplasty (~03/2023) status post balloon angioplasty of bilateral common and external iliac arteries status post left iliofemoral endarterectomy Arteriovenous fistula of left upper extremity (~2017) History of appendectomy (~1962) History of coronary artery bypass graft (~2013) Family History Family History Mother Diabetes mellitus Acute myocardial infarction Family history of congestive heart failure Father Hypertension Social History Social History Social History: Surrogate medical decision maker: Wilianisael Morrissey, sibling. Code status: Full code. Caffeine- daily Smoking packs per day: 10 Smoking cigarettes per day: 200.0 Years smoked: 10 Smoking pack-years: 100.00 Smoking status: Former smoker Tobacco type: cigarettes and pipe Second hand tobacco smoke exposure: No Smoking end date: 10/22/11 Alcohol intake: never Drinks per week: 1 Alcohol use details: Maybe 2-3 per year Substance use: never Substance use type: does not use Do You Feel Safe in your Home?: Yes Lack of Transportation: No Lack of Food: Never True Current Housing: I Have Housing Concerned About Future Housing: No Difficulty Paying Gas/Electric Bills: No Difficulty Paying for Meds: No Currently Unemployed: No Education: Associate Degree Difficulty w/ Childcare or Family Care: No Living arrangements: with family Occupation/Education: retired Additional occupation/education comments: Retired from the [employer]. Spiritual care concerns: No Agree to blood products: Yes Meds Home Medications and Allergies Home Medications ?Medication ?Instructions ?Recorded ?Confirmed ?Type aspirin 81 mg tablet,delayed 81 mg PO DAILY 10/31/21 12/20/24 History release carvedilol 25 mg tablet 25 mg PO BID 10/31/21 12/09/24 History dulaglutide 1.5 mg/0.5 mL 1.5 mg subcut WEEKLY 10/31/21 12/09/24 History subcutaneous pen injector (Trulicity) insulin lispro 100 unit/mL 4 unit subcut .TIDAC 10/31/21 12/09/24 History subcutaneous pen loratadine 10 mg tablet (Claritin) 10 mg PO PRN 10/31/21 12/09/24 History amlodipine 10 mg tablet 10 mg PO DAILY 11/07/23 12/09/24 History insulin glargine 100 unit/mL (3 6 unit subcut DAILY 11/07/23 12/09/24 History mL) subcutaneous pen (Lantus Solostar U-100 Insulin) sevelamer HCl 800 mg tablet 3,200 mg PO TID 11/07/23 12/09/24 History cinacalcet 90 mg PO DAILY 12/12/23 12/09/24 History cyclobenzaprine 10 mg tablet 10 mg PO TID PRN muscle spasm #30 10/07/24 12/09/24 Rx tabs Allergies Allergy/AdvReac Type Severity Reaction Status Date / Time No Known Allergies Allergy Verified 12/20/24 08:13 Vital Signs Vital Signs - 24 hr 12/20/24 08:13 12/20/24 08:17 12/20/24 08:23 Temperature 97.8 F Pulse Rate 99 Respiratory Rate 21 H Blood Pressure 178/77 H Pulse Oximetry 96 Exam Narrative: Exam Narrative: Well developed well-nourished in no acute distress Skin is warm and dry without rash Head normocephalic atraumatic Eyes normal sclerae and conjunctivae Mouth normal lips teeth and gums Neck no nodes no thyromegaly no carotid bruits Axillae no nodes Back no CVA tenderness Lungs symmetric and clear to auscultation and percussion Heart regular rate and rhythm without rub or gallop Abdomen bowel sounds positive soft nontender, no HSM, masses, or bruits. Extremities no cyanosis, clubbing, or edema Pulses 2+ equal in radial arteries Psychological not anxious or depressed Neuro alert and oriented x3 motor 5/5 cranial nerves 2-12 intact reflexes 2+ and equal in the biceps and patellar tendons cerebellar normal rapid alternating movements Results Lab Results 12/20/24 08:58 12/20/24 09:48 Lab results: Most recent lab results Calcium 8.1 mg/dL (8.4-10.2) L 12/20/24 09:48
--- NOTE | 2024-12-20 11:33 | PC.NURSE ---
Dr. Tang at bedside. Dialysis nurse called in by . Consent for dialysis placed in pt. chart.
--- NOTE | 2024-12-20 14:47 | PC.NURSE ---
spoke with Sasha from Dialysis. gave report, updated the patient family member at bedside. patient up to dialysis at this time.
--- NOTE | 2024-12-20 17:09 | PCHDNOTE ---
Called down to the ED to make aware that pt is in afib and wanted them to know because pt is not on a heart monitor at this time. Nurse states that they are aware of the afib. Dr. Tang was contacted and updated.
--- NOTE | 2024-12-20 18:42 | PM.IMHP ---
H&P: HPI History of Present Illness Date/Time: 12/20/24 18:42 Chief Complaint: Weakness Narrative: 79yo male with COPD, CAD, anemia, DM and ESRD on HD here for weakness and falling. Patient was recently hospitalized here for SOB from 12/09-12/12 and found to have elevated troponin, acute/chronic heart failure, influenza and atrial fibrillation. He was treated with Levaquin and Tamiflu. He was discharged on 12/12/[address] [facility]. Patient is alert but confused and unable to provide a reasonable history. Spoke with daughter who provided the following history. Patient has had a persistent, hacking cough since last discharge. Daughter feels the patient has more of a chronic diarrhea and wears Depends. Daughter does not feel patient is getting adequate therapy at the facility. Nor did she say that his right heel ulcer has been evaluated fully. Patient does not see wound care. Patient has being going to dialysis using the ACT bus. This morning he did not make the ACT bus for unclear reasons. His brother went to pick him up for dialysis. When the patient stood from the wheelchair, he fell. There was no loss of consciousness or head injury as per the ED notes. Daughter was unsure of this information. Attempted to call the brother but he was not available. The notes state the diarrhea started yesterday with hematochezia. Patient is on aspirin but not on any other anticoagulants. Daughter was unsure if patient has bouts of confusion at times. Patient was brought to the emergency room for evaluation. In the ED, he was afebrile with tachycardia (128) and hypoxic. EKG showed atrial fibrillation with RVR (103), right bundle branch block, left posterior fascicular block. Chest x-ray showed pulmonary vascular congestion and mild pulmonary edema at the lung bases. White count was 13K, hgb 10, Na 129. Renal fxn was abnormal due to ESRD. Potassium and serum bicarb normal. Influenza A positive but he was positive on 12/09/2024 as well so unclear this is new or residual from prior infection. Influenza B, RSV and COVID PCR were negative. Rectal exam by the ED doctor showed watery stools and occult positive bedside testing. He was alert and orient x3 in the emergency room. No CT of head or abd/pelvis performed. Patient was admitted and underwent hemodialysis for fluid overload. Review of Systems Review of Systems: All systems reviewed & are unremarkable except as noted in HPI and below [facility] Past Medical History Medical History (Updated 12/21/24 @ 07:22 by Raoul Wahl MD) Sinus pause (~09/2024) Bilateral shoulder pain Obstructive sleep apnea Insulin dependent type 2 diabetes mellitus Chronic obstructive pulmonary disease Coronary artery disease Benign prostatic hyperplasia Peripheral vascular disease Internal hemorrhoid, bleeding Gastritis Anemia End-stage renal disease on hemodialysis History of colon polyps Environmental allergies Vitamin D deficiency Dyslipidemia Essential (primary) hypertension Surgical History Surgical History History of cardiac pacemaker (~10/2024) due to symptomatic sinus pauses causing syncope History of hemorrhoidectomy Anorectal evaluation under anesthesia and excisional hemorrhoidectomy x3 12/14/23 SAW S/P peripheral artery angioplasty (~03/2023) status post balloon angioplasty of bilateral common and external iliac arteries status post left iliofemoral endarterectomy Arteriovenous fistula of left upper extremity (~2017) History of appendectomy (~1962) History of coronary artery bypass graft (~2013) Family History Family History Mother Diabetes mellitus Acute myocardial infarction Family history of congestive heart failure Father Hypertension Social History Social History Social History: Surrogate medical decision maker: Wilian Finleyn, sibling. Code status: Full code. Caffeine- daily Smoking packs per day: 10 Smoking cigarettes per day: 200.0 Years smoked: 10 Smoking pack-years: 100.00 Smoking status: Former smoker Second hand tobacco smoke exposure: No Alcohol intake: never Drinks per week: 1 Alcohol use details: Maybe 2-3 per year Substance use: never Substance use type: does not use Do You Feel Safe in your Home?: Yes Lack of Transportation: No Lack of Food: Never True Current Housing: I Have Housing Concerned About Future Housing: No Difficulty Paying Gas/Electric Bills: No Difficulty Paying for Meds: No Currently Unemployed: No Education: Associate Degree Difficulty w/ Childcare or Family Care: No Living arrangements: with family Occupation/Education: retired Additional occupation/education comments: Retired from the [employer]. Spiritual care concerns: No Agree to blood products: Yes Meds Home Medications and Allergies Home Medications ?Medication ?Instructions ?Recorded ?Confirmed ?Type aspirin 81 mg tablet,delayed 81 mg PO DAILY 10/31/21 12/20/24 History release carvedilol 25 mg tablet 25 mg PO BID 10/31/21 12/09/24 History dulaglutide 1.5 mg/0.5 mL 1.5 mg subcut WEEKLY 10/31/21 12/09/24 History subcutaneous pen injector (Trulicity) insulin lispro 100 unit/mL 4 unit subcut .TIDAC 10/31/21 12/09/24 History subcutaneous pen loratadine 10 mg tablet (Claritin) 10 mg PO PRN 10/31/21 12/09/24 History amlodipine 10 mg tablet 10 mg PO DAILY 11/07/23 12/09/24 History insulin glargine 100 unit/mL (3 6 unit subcut DAILY 11/07/23 12/09/24 History mL) subcutaneous pen (Lantus Solostar U-100 Insulin) sevelamer HCl 800 mg tablet 3,200 mg PO TID 11/07/23 12/09/24 History cinacalcet 90 mg PO DAILY 12/12/23 12/09/24 History cyclobenzaprine 10 mg tablet 10 mg PO TID PRN muscle spasm #30 10/07/24 12/09/24 Rx tabs Allergies Allergy/AdvReac Type Severity Reaction Status Date / Time No Known Allergies Allergy Verified 12/20/24 08:13 Vital Signs Vital Signs - 24 hr 12/20/24 08:13 12/20/24 08:17 12/20/24 08:18 Temperature 97.8 F Pulse Rate 99 Respiratory Rate 21 H 27 H Blood Pressure Pulse Oximetry 96 91 Oxygen Delivery Oxygen Flow Rate 12/20/24 08:23 12/20/24 08:23 12/20/24 08:30 Temperature Pulse Rate 104 H 108 H Respiratory Rate 24 H 31 H Blood Pressure 178/77 H 178/77 H Pulse Oximetry 89 L 94 Oxygen Delivery Oxygen Flow Rate 12/20/24 08:54 12/20/24 09:27 12/20/24 09:30 Temperature Pulse Rate 103 H 107 H 90 Respiratory Rate 24 H 24 H 24 H Blood Pressure Pulse Oximetry 92 88 L 87 L Oxygen Delivery Oxygen Flow Rate 12/20/24 09:45 12/20/24 10:00 12/20/24 10:15 Temperature Pulse Rate 128 H 88 96 Respiratory Rate 15 30 H 26 H Blood Pressure Pulse Oximetry 98 85 L 86 L Oxygen Delivery Oxygen Flow Rate 12/20/24 10:42 12/20/24 10:44 12/20/24 10:47 Temperature Pulse Rate 110 H 97 101 H Respiratory Rate 21 H 33 H 32 H Blood Pressure 145/64 H Pulse Oximetry 89 L 84 L Oxygen Delivery Oxygen Flow Rate 12/20/24 11:00 12/20/24 11:31 12/20/24 12:43 Temperature Pulse Rate 103 H 98 Respiratory Rate 28 H 30 H Blood Pressure 146/76 H Pulse Oximetry 81 L Oxygen Delivery Oxygen Flow Rate 12/20/24 12:48 12/20/24 12:48 12/20/24 12:50 Temperature Pulse Rate 84 Respiratory Rate 26 H Blood Pressure Pulse Oximetry 81 L 81 L 92 Oxygen Delivery Room Air Nasal Cannula Oxygen Flow Rate 3 12/20/24 13:08 12/20/24 13:15 12/20/24 13:16 Temperature Pulse Rate 96 94 92 Respiratory Rate 27 H 27 H 31 H Blood Pressure 155/57 H Pulse Oximetry 94 Oxygen Delivery Oxygen Flow Rate 12/20/24 13:36 12/20/24 13:45 12/20/24 13:46 Temperature Pulse Rate 95 102 H 94 Respiratory Rate 27 H 25 H 31 H Blood Pressure 147/60 H Pulse Oximetry Oxygen Delivery Oxygen Flow Rate 12/20/24 14:00 12/20/24 14:30 12/20/24 14:59 Temperature Pulse Rate 93 90 Respiratory Rate 26 H Blood Pressure 132/68 Pulse Oximetry 95 Oxygen Delivery Oxygen Flow Rate 3 12/20/24 14:59 12/20/24 15:08 12/20/24 15:15 Temperature 98.2 F Pulse Rate 87 90 94 Respiratory Rate 22 H Blood Pressure 140/70 138/67 137/71 Pulse Oximetry 99 Oxygen Delivery Oxygen Flow Rate 12/20/24 15:45 12/20/24 16:00 12/20/24 16:15 Temperature Pulse Rate 94 104 H 94 Respiratory Rate Blood Pressure 159/67 H 153/76 H 161/73 H Pulse Oximetry Oxygen Delivery Oxygen Flow Rate 12/20/24 16:30 12/20/24 16:45 12/20/24 17:00 Temperature Pulse Rate 91 104 H 129 H Respiratory Rate Blood Pressure 147/77 H 143/66 H 159/67 H Pulse Oximetry Oxygen Delivery Oxygen Flow Rate 12/20/24 17:15 12/20/24 17:30 12/20/24 17:45 Temperature Pulse Rate 111 H 102 H 116 H Respiratory Rate Blood Pressure 159/68 H 152/65 H 149/73 H Pulse Oximetry Oxygen Delivery Oxygen Flow Rate 12/20/24 18:00 12/20/24 18:15 12/20/24 18:30 Temperature Pulse Rate 120 H 126 H 107 H Respiratory Rate Blood Pressure 133/66 151/79 H 172/59 H Pulse Oximetry Oxygen Delivery Oxygen Flow Rate Exam Narrative: AF 98.2 172/59 107 22 99% 3L Gen - chronically ill appearing male in no acute respiratory distress who is nontoxic-appearing lying semi recumbent in bed and was woken from sleep HEENT - normocephalic. Atraumatic. Pupils equal round and reactive. Extraocular motions intact. Sclera clear and anicteric. Nares patent. Oropharynx was not visualized. No oral lesions. Moist mucous membranes. Tongue was midline. Palate nakul symmetrically. No facial asymmetry. Neck - neck was supple. No dominant adenopathy, thyromegaly or masses. Chest - lungs are clear anteriorly with inspiratory crackles appreciated in the bases. No wheezes CV - irregular and tachycardic. S1-S2. Abd - abdomen was soft. Nontender. Nondistended. Positive bowel sounds. No organomegaly or masses. Ext - 2+ pitting edema bilateral LE and 1+ bilteral L>R UE. Thrill and bruit LUE fistula. Neuro - patient arouses and able to anser some questions but confused. He folows commands. CN II-XII intact. Mild diffuse weakness but symmetric. Speech is mostly clear. Psych - pleasant and cooperative. Skin - warm and dry. multiple dried eschars involving all extremities. Right heel dried decub ulcer. H&P: Results Labs Labs: Short CBC 12/20/24 Range/Units 08:58 WBC 13.2 H (4.5-10.0) K/mm3 Hgb 10.1 L (14.0-18.0) g/dL Hct 33.0 L (42.0-52.0) % Plt Count 238 (150-375) k/mm3 [facility] 12/20/24 09:48 Sodium 129 L Potassium 4.2 Chloride 88 L Carbon Dioxide 28 BUN 57 H D Creatinine 5.65 H Glucose 197 H Calcium 8.1 L Liver Function 12/20/24 Range/Units 09:48 Total Bilirubin 0.5 (0.2-1.3) mg/dL AST 19 (17-59) U/L ALT 23 (6-50) U/L Alkaline Phosphatase 79 (38-126) U/L Albumin 3.5 (3.5-5.1) g/dL Assessment and Plan Assessment and plan (1) Volume overload: Code(s): E87.70 - Fluid overload, unspecified Status: Acute (2) Diarrhea: Code(s): R19.7 - Diarrhea, unspecified Status: Acute (3) Fall: Code(s): W19.XXXA - Unspecified fall, initial encounter Status: Acute (4) End-stage renal disease on hemodialysis: Code(s): N18.6 - End stage renal disease; Z99.2 - Dependence on renal dialysis Status: Acute (5) Influenza: Code(s): J11.1 - Influenza due to unidentified influenza virus with other respiratory manifestations Status: Acute (6) COPD (chronic obstructive pulmonary disease): Qualifiers: COPD type: unspecified COPD Qualified Code(s): J44.9 - Chronic obstructive pulmonary disease, unspecified Code(s): J44.9 - Chronic obstructive pulmonary disease, unspecified Status: Chronic (7) Weakness: Code(s): R53.1 - Weakness Status: Acute (8) Hyponatremia: Code(s): E87.1 - Hypo-osmolality and hyponatremia Status: Acute (9) Confusion: Code(s): R41.0 - Disorientation, unspecified Status: Acute Plan Patient was admitted to medical floor. He has already undergone dialysis which should improve his volume overload. Given his persistent edema, he most likely will need further HD on his non-dialysis days to get him to his dry weight. Suspect the hyponatremia is related to fluid overload. Nephrology consulted and appreciate their input. He was treated with Levaquin last admission so consider C diff. C diff toxin and stool cultures ordered. Monitor stool output. Consider CT the abdomen and pelvis if his clinical exam changes but at the moment, the patient's abdominal exam is benign. Hgb stable on admission. Follow clinically. Patient had a fall out of his wheelchair this morning. Documented that there was no injury. No focal findings but given his confusion, will proceed with head CT. Hold ASA. Patient tested positive with influenza A again. In immunocompetent host, influenza viral shedding can last 5-10 days. However, patient's with chronic illnesses can she had a virus for weeks. CXR is more consistent with fluid overload. He was treated with Tamiflu <2 weeks ago. Will hold off on repeating treatment at this time since this could negatively impact his mental status and feel that the positive influenza test was just residual from his last hospitalization. Will start PT/OT. Further recommendations as course dictates. DVT Prophylaxis - SCDs Code status - Full Hospitalist MIPS Advance Care Plan I have confirmed that the patient's Advanced Care Plan is present, code status is documented, or surrogate decision maker is listed in patient medical record.: Yes Medication Reconciliation I have utilized all available resources to obtain, update and review the patients current medications (includes all prescriptions, OTC, herbals, cannabis, and nutritional supplements).: Yes
--- NOTE | 2024-12-20 23:30 | ADMGEN ---
This patient, Sam Morrissey, was admitted to Medical Room 252-01. Patient/family oriented to hospital policies and general routines including ID bracelet, bed and alarms, visiting hours, pain management, procedures, bathroom and other care routines, personal items, smoking policy, room service/diet, and visiting hours. Information on how to activate the Rapid Response Team has been discussed. Patient/Family are encouraged to report perceived risks to care and to ask questions if they do not understand what they are told or what they should do.
[2024-12-21] VITALS (12 sets, daily range): BP systolic 91–120; BP diastolic 47–61; PULSE 74–100; RESP 18–24; TEMP 36.3–36.8; O2SAT 95–99
[2024-12-21 02:38] LABS: Toxigenic C. Diff NEGATIVE (NEGATIVE)
[2024-12-21 06:26] LABS: Basophils Percent Auto 0.5 % (0.2-1.2); Eosinophils Percent Auto 0.8 % (0-4.4); Hematocrit 30.3 % (42.0-52.0); Hemoglobin 9.1 g/dL (14.0-18.0); Immature Granulocyte Absolute 0.05 K/mm3 (0.00-0.031); Immature Granulocyte Percent A 1.3 % (0-0.5); Lymphocytes Absolute Auto 0.34 K/mm3 (0.9-3.2); Lymphocytes Percent Auto 9.1 % (18.3-44.2); Mean Corpuscular Hemoglobin 26.6 pg (26-34); Mean Corpuscular Volume 88.6 fl (80-100); Mean Platelet Volume 10.9 fl (7.4-10.4); Monocytes Absolute Auto 0.5 K/mm3 (0.1-0.6); Neutrophils Absolute Auto 2.9 K/mm3 (1.3-6.7); Neutrophils Percent Auto 76.3 % (45.5-73.1); Platelet Count Result 191 k/mm3 (150-375); Red Blood Count 3.42 M/mm3 (4.6-6.20); Red Cell Distribution Width 17.8 % (11.5-14.5); White Blood Count 3.8 K/mm3 (4.5-10.0)
[2024-12-21 06:47] LABS: Albumin Level 2.9 g/dL (3.5-5.1); Anion Gap 9 mmol/L (4-12); Blood Urea Nitrogen 38 mg/dL (9-20); Calcium 8.5 mg/dL (8.4-10.2); Carbon Dioxide 31 mmol/L (22-30); Chloride 92 mmol/L (98-107); Cholesterol 75 mg/dL (0-200); Estimated CRCL calculation 15 ml/min; Estimated Glomerular Filt Rate 14; Glucose 164 mg/dL (65-110); HDL Direct 31 mg/dL; Magnesium 1.8 mg/dL (1.6-2.3); Phosphorus 4.8 mg/dL (2.5-4.5); Potassium 3.9 mmol/L (3.4-5.0); Sodium 132 mmol/L (137-145); Triglycerides 63 mg/dL (<150)
[2024-12-21 06:57] LABS: LDL Cholesterol Direct < 30 mg/dL
--- NOTE | 2024-12-21 07:02 | PM.IMPN ---
Progress Note: A&P Assessment and Plan (1) Volume overload: Code(s): E87.70 - Fluid overload, unspecified Status: Acute (2) Diarrhea: Code(s): R19.7 - Diarrhea, unspecified Status: Acute (3) Fall: Code(s): W19.XXXA - Unspecified fall, initial encounter Status: Acute (4) End-stage renal disease on hemodialysis: Code(s): N18.6 - End stage renal disease; Z99.2 - Dependence on renal dialysis Status: Acute (5) Influenza: Code(s): J11.1 - Influenza due to unidentified influenza virus with other respiratory manifestations Status: Acute (6) COPD (chronic obstructive pulmonary disease): Qualifiers: COPD type: unspecified COPD Qualified Code(s): J44.9 - Chronic obstructive pulmonary disease, unspecified Code(s): J44.9 - Chronic obstructive pulmonary disease, unspecified Status: Chronic (7) Weakness: Code(s): R53.1 - Weakness Status: Acute (8) Hyponatremia: Code(s): E87.1 - Hypo-osmolality and hyponatremia Status: Acute Plan Patient was admitted to medical floor. He has already undergone dialysis which should improve his volume overload. Given his persistent edema, he most likely will need further HD on his non-dialysis days to get him to his dry weight. Suspect the hyponatremia is related to fluid overload. Nephrology consulted and appreciate their input. He was treated with Levaquin last admission so consider C diff. C diff toxin and stool cultures ordered. Monitor stool output. Consider CT the abdomen and pelvis if his clinical exam changes but at the moment, the patient's abdominal exam is benign. Hgb stable on admission. Follow clinically. Patient had a fall out of his wheelchair this morning. Documented that there was no injury. No focal findings but given his confusion, will proceed with head CT. Hold ASA. Patient tested positive with influenza A again. In immunocompetent host, influenza viral shedding can last 5-10 days. However, patient's with chronic illnesses can she had a virus for weeks. CXR is more consistent with fluid overload. He was treated with Tamiflu <2 weeks ago. Will hold off on repeating treatment at this time since this could negatively impact his mental status and feel that the positive influenza test was just residual from his last hospitalization. Will start PT/OT. Further recommendations as course dictates. 12/21/24 - Patient still on oxygen. May need an extra dialysis treatment tomorrow. Wean O2 as tolerated. Diarrhea appears to be waning. CDiff negative. Monitor stool output. Hgb noted - monitor HH. He remains sleepy and nods off. Probably related to his untreated CARITO. Will check ABG. Still with cough but feel the influenza A test was a residual from 10 days ago. Check sputum. Hold on abx. PT/OT to evaluate. DVT Prophylaxis - SCDs Code status - Full Subjective Date/time seen: 12/21/24 07:02 Interval history: 79yo male with COPD, CAD, anemia, DM and ESRD on HD here for weakness and falling. No CP or SOB. Not on oxygen at home. Noncompliant with CPAP. No diarrhea overnight. Cough productive of brown sputum. Exam Narrative: AF 98.2 120/54 93 18 98% 3L Gen - NARD Chest - coarse rhonchi CV - irregular and tachycardic. S1-S2. Tele showing AFib with occasional RVR Abd - soft. NT/ND Ext - trace pedal edema. Thrill and bruit LUE fistula. Neuro - patient somnolence. AO x4. Psych - pleasant and cooperative. Skin - warm and dry. multiple dried eschars involving all extremities. Right heel dry decub ulcer about marly sized. Objective Data Vital Signs Vital Signs: Vital Signs - 24 hr 12/20/24 08:13 12/20/24 08:17 12/20/24 08:18 Temperature 97.8 F Pulse Rate 99 Respiratory Rate 21 H 27 H Blood Pressure Pulse Oximetry 96 91 Oxygen Delivery Oxygen Flow Rate 12/20/24 08:23 12/20/24 08:23 12/20/24 08:30 Temperature Pulse Rate 104 H 108 H Respiratory Rate 24 H 31 H Blood Pressure 178/77 H 178/77 H Pulse Oximetry 89 L 94 Oxygen Delivery Oxygen Flow Rate 12/20/24 08:54 12/20/24 09:27 12/20/24 09:30 Temperature Pulse Rate 103 H 107 H 90 Respiratory Rate 24 H 24 H 24 H Blood Pressure Pulse Oximetry 92 88 L 87 L Oxygen Delivery Oxygen Flow Rate 12/20/24 09:45 12/20/24 10:00 12/20/24 10:15 Temperature Pulse Rate 128 H 88 96 Respiratory Rate 15 30 H 26 H Blood Pressure Pulse Oximetry 98 85 L 86 L Oxygen Delivery Oxygen Flow Rate 12/20/24 10:42 12/20/24 10:44 12/20/24 10:47 Temperature Pulse Rate 110 H 97 101 H Respiratory Rate 21 H 33 H 32 H Blood Pressure 145/64 H Pulse Oximetry 89 L 84 L Oxygen Delivery Oxygen Flow Rate 12/20/24 11:00 12/20/24 11:31 12/20/24 12:43 Temperature Pulse Rate 103 H 98 Respiratory Rate 28 H 30 H Blood Pressure 146/76 H Pulse Oximetry 81 L Oxygen Delivery Oxygen Flow Rate 12/20/24 12:48 12/20/24 12:48 12/20/24 12:50 Temperature Pulse Rate 84 Respiratory Rate 26 H Blood Pressure Pulse Oximetry 81 L 81 L 92 Oxygen Delivery Room Air Nasal Cannula Oxygen Flow Rate 3 12/20/24 13:08 12/20/24 13:15 12/20/24 13:16 Temperature Pulse Rate 96 94 92 Respiratory Rate 27 H 27 H 31 H Blood Pressure 155/57 H Pulse Oximetry 94 Oxygen Delivery Oxygen Flow Rate 12/20/24 13:36 12/20/24 13:45 12/20/24 13:46 Temperature Pulse Rate 95 102 H 94 Respiratory Rate 27 H 25 H 31 H Blood Pressure 147/60 H Pulse Oximetry Oxygen Delivery Oxygen Flow Rate 12/20/24 14:00 12/20/24 14:30 12/20/24 14:59 Temperature Pulse Rate 93 90 Respiratory Rate 26 H Blood Pressure 132/68 Pulse Oximetry 95 Oxygen Delivery Oxygen Flow Rate 3 12/20/24 14:59 12/20/24 15:08 12/20/24 15:15 Temperature 98.2 F Pulse Rate 87 90 94 Respiratory Rate 22 H Blood Pressure 140/70 138/67 137/71 Pulse Oximetry 99 Oxygen Delivery Oxygen Flow Rate 12/20/24 15:45 12/20/24 16:00 12/20/24 16:15 Temperature Pulse Rate 94 104 H 94 Respiratory Rate Blood Pressure 159/67 H 153/76 H 161/73 H Pulse Oximetry Oxygen Delivery Oxygen Flow Rate 12/20/24 16:30 12/20/24 16:45 12/20/24 17:00 Temperature Pulse Rate 91 104 H 129 H Respiratory Rate Blood Pressure 147/77 H 143/66 H 159/67 H Pulse Oximetry Oxygen Delivery Oxygen Flow Rate 12/20/24 17:15 12/20/24 17:30 12/20/24 17:45 Temperature Pulse Rate 111 H 102 H 116 H Respiratory Rate Blood Pressure 159/68 H 152/65 H 149/73 H Pulse Oximetry Oxygen Delivery Oxygen Flow Rate 12/20/24 18:00 12/20/24 18:15 12/20/24 18:30 Temperature Pulse Rate 120 H 126 H 107 H Respiratory Rate Blood Pressure 133/66 151/79 H 172/59 H Pulse Oximetry Oxygen Delivery Oxygen Flow Rate 12/20/24 18:42 12/20/24 19:00 12/20/24 23:40 Temperature 99.0 F Pulse Rate 126 H 120 H 95 Respiratory Rate 20 Blood Pressure 155/72 H 114/66 Pulse Oximetry 98 Oxygen Delivery Oxygen Flow Rate 12/21/24 00:11 12/21/24 04:00 12/21/24 06:00 Temperature 98.2 F 98.2 F Pulse Rate 97 100 93 Respiratory Rate 18 18 Blood Pressure 117/47 L 120/54 L Pulse Oximetry 99 98 Oxygen Delivery Oxygen Flow Rate Intake/Output Intake/Output: Intake & Output 12/18/24 12/19/24 12/20/24 12/21/24 23:59 23:59 23:59 23:59 Output Total 3000 0 Balance -3000 0 Meds/Results Medications: Active Medications Generic Name Dose Route Start Last Admin Trade Name Freq PRN Reason Stop Dose Admin Acetaminophen 650 mg 12/20/24 11:55 Acetaminophen 325 Mg Tablet PO Q4H PRN Mild Pain (1-3) or Fever Hydrocodone Bitart/Acetaminophen 1 tab 12/20/24 11:55 Hydrocodone/Acetaminophen (*Crx) 5-325 Mg Tablet PO Q4H PRN Pain Rated 4-6 Albumin Human 50 mls @ 999 mls/hr 12/20/24 11:11 Albutein IVPB 12/21/24 11:10 Q10M PRN HYPOTENSION Ondansetron HCl 4 mg 12/20/24 11:55 Ondansetron Inj 4 Mg/2 Ml Vial IV PUSH Q4H PRN Nausea Radiology Results: ITS Impressions Chest X-Ray 12/20/24 09:08 IMPRESSION: 1. Pulmonary vascular congestion and mild pulmonary edema at the lung bases. Head CT 12/20/24 22:14 IMPRESSION: No acute intracranial findings. Labs Labs: Laboratory Results - last 24 hr 12/20/24 12/20/24 12/20/24 08:29 08:58 09:48 WBC 13.2 H RBC 3.78 L Hgb 10.1 L Hct 33.0 L MCV 87.3 MCH 26.7 MCHC 30.6 L RDW 17.8 H Plt Count 238 MPV 10.8 H Immature Gran % (Auto) 0.8 H Neut % (Auto) 94.3 H Lymph % (Auto) 0.5 L [place] % (Auto) 3.6 Eos % (Auto) 0.5 Baso % (Auto) 0.3 Lymph # (Auto) 0.06 L [place] # (Auto) 0.5 Eos # (Auto) 0.1 Baso # (Auto) 0.0 Abs Immat Gran (auto) 0.10 H Absolute Neuts (auto) 12.5 H Absolute Nucleated RBC 0.000 Band Neutrophils % Not Reportable Nucleated RBC % 0.0 Platelet Estimate Adequate Hypochromasia 1+ Anisocytosis 1+ Schistocytes None seen Sodium 129 L Potassium 4.2 Chloride 88 L Carbon Dioxide 28 Anion Gap 13 H BUN 57 H D Creatinine 5.65 H Estim Creat Clear Calc 11 Estimated GFR 10 L Glucose 197 H Calcium 8.1 L Phosphorus Magnesium Total Bilirubin 0.5 AST 19 ALT 23 Alkaline Phosphatase 79 Total Protein 6.0 L Albumin 3.5 Triglycerides Cholesterol LDL Cholesterol Direct HDL Direct C. difficile (PCR) Influenza A (RT-PCR) Positive A Influenza B (RT-PCR) Negative RSV (RT-PCR) Negative SARS-CoV-2 RNA (RT-PCR) Negative 12/20/24 12/21/24 11:48 06:11 WBC 3.8 L RBC 3.42 L Hgb 9.1 L Hct 30.3 L MCV 88.6 MCH 26.6 MCHC 30.0 L RDW 17.8 H Plt Count 191 MPV 10.9 H Immature Gran % (Auto) 1.3 H Neut % (Auto) 76.3 H Lymph % (Auto) 9.1 L [place] % (Auto) 12.0 H Eos % (Auto) 0.8 Baso % (Auto) 0.5 Lymph # (Auto) 0.34 L [place] # (Auto) 0.5 Eos # (Auto) 0.0 Baso # (Auto) 0.0 Abs Immat Gran (auto) 0.05 H Absolute Neuts (auto) 2.9 Absolute Nucleated RBC 0.000 Band Neutrophils % Nucleated RBC % 0.0 Platelet Estimate Hypochromasia Anisocytosis Schistocytes Sodium 132 L Potassium 3.9 Chloride 92 L Carbon Dioxide 31 H Anion Gap 9 BUN 38 H D Creatinine 4.07 H Estim Creat Clear Calc 15 Estimated GFR 14 L Glucose 164 H Calcium 8.5 Phosphorus 4.8 H Magnesium 1.8 Total Bilirubin AST ALT Alkaline Phosphatase Total Protein Albumin 2.9 L Triglycerides 63 Cholesterol 75 LDL Cholesterol Direct < 30 HDL Direct 31 C. difficile (PCR) Negative Influenza A (RT-PCR) Influenza B (RT-PCR) RSV (RT-PCR) SARS-CoV-2 RNA (RT-PCR)
[2024-12-21] MEDS: FUROSEMIDE 80 MG TABLET PO ×2 (10:08→17:08)
[2024-12-21] MEDS: OMEGA 3 POLYUNSAT FATTY ACIDS 1 GM CAP 2 GM PO (10:09)
[2024-12-21] MEDS: carvediloL 25 MG TABLET PO ×2 (10:09→21:58)
[2024-12-21] MEDS: ASPIRIN 81 MG CHEWABLE TABLET PO (10:09)
[2024-12-21] MEDS: FINASTERIDE 5 MG TABLET PO (10:09)
[2024-12-21] MEDS: SEVELAMER CARBONATE 0.8 GM ORAL POWDER PACKET 3.2 GM PO ×3 (10:13→17:09)
--- NOTE | 2024-12-21 10:53 | P.PNNP_ITS ---
Progress Note: A&P Assessment and Plan (1) End-stage renal disease on hemodialysis: Code(s): N18.6 - End stage renal disease; Z99.2 - Dependence on renal dialysis Status: Acute Assessment and Plan: The patient has end-stage renal disease. This is due to diabetes and hypertension. Vascular disease is probably playing a role as well. The patient had HD yesterday. he looks better today. will dry ultrafiltrate tomorrow to remove more fluid. (2) Hypertension: Code(s): I10 - Essential (primary) hypertension Status: Acute Assessment and Plan: the patient's blood pressure was high on admission. he has received no bp meds so far. BP is good today. I will order carvedilol in light of his CAD. pulse 88. fluid removal probably helped as well. (3) Diabetes: Code(s): E11.9 - Type 2 diabetes mellitus without complications Status: Acute Assessment and Plan: Management per hospitalists (4) Anemia: Code(s): D64.9 - Anemia, unspecified Status: Chronic Assessment and Plan: hemoglobin is 10.1. will give epo since bp is down. (5) Acute exacerbation of CHF (congestive heart failure): Code(s): I50.9 - Heart failure, unspecified Status: Acute Assessment and Plan: volume overload is improved. (6) Peripheral vascular disease: Onset Date: ~03/2023 Code(s): I73.9 - Peripheral vascular disease, unspecified Status: Acute Assessment and Plan: He had stents placed in his lower extremities. he has a heel eschar. consider wound consult? (7) CARITO (obstructive sleep apnea): Code(s): G47.33 - Obstructive sleep apnea (adult) (pediatric) Status: Acute (8) Dyslipidemia: Code(s): E78.5 - Hyperlipidemia, unspecified Status: Acute Assessment and Plan: LDL less than 30! (9) Influenza: Code(s): J11.1 - Influenza due to unidentified influenza virus with other respiratory manifestations Status: Acute Assessment and Plan: on Tamiflu Subjective Date/time seen: 12/21/24 10:53 Interval history: more alert. feel better. no sob. lying flat in bed. eager to get up in a chair. PT/OT eval ordered. Review of Systems Cardiovascular: Cardiovascular: Reports no additional cardiovascular complaints Respiratory: Respiratory: Reports no additional respiratory complaints Gastrointestinal: Gastrointestinal: Reports no additional gastrointestinal complaints Genitourinary: Genitourinary: Reports no additional male genitourinary complaints Exam Narrative: WDWN in NAD skin no rash or sq nodules head ncat lungs clearer. rare coarse bs. cor reg no rub abd BS+ nontender and soft ext 1+ edema. Objective Data Vital Signs Vital Signs: Vital Signs - 24 hr 12/20/24 11:00 12/20/24 11:31 12/20/24 12:43 Temperature Pulse Rate 103 H 98 Respiratory Rate 28 H 30 H Blood Pressure 146/76 H Pulse Oximetry 81 L Oxygen Delivery Oxygen Flow Rate 12/20/24 12:48 12/20/24 12:48 12/20/24 12:50 Temperature Pulse Rate 84 Respiratory Rate 26 H Blood Pressure Pulse Oximetry 81 L 81 L 92 Oxygen Delivery Room Air Nasal Cannula Oxygen Flow Rate 3 12/20/24 13:08 12/20/24 13:15 12/20/24 13:16 Temperature Pulse Rate 96 94 92 Respiratory Rate 27 H 27 H 31 H Blood Pressure 155/57 H Pulse Oximetry 94 Oxygen Delivery Oxygen Flow Rate 12/20/24 13:36 12/20/24 13:45 12/20/24 13:46 Temperature Pulse Rate 95 102 H 94 Respiratory Rate 27 H 25 H 31 H Blood Pressure 147/60 H Pulse Oximetry Oxygen Delivery Oxygen Flow Rate 12/20/24 14:00 12/20/24 14:30 12/20/24 14:59 Temperature Pulse Rate 93 90 Respiratory Rate 26 H Blood Pressure 132/68 Pulse Oximetry 95 Oxygen Delivery Oxygen Flow Rate 3 12/20/24 14:59 12/20/24 15:08 12/20/24 15:15 Temperature 98.2 F Pulse Rate 87 90 94 Respiratory Rate 22 H Blood Pressure 140/70 138/67 137/71 Pulse Oximetry 99 Oxygen Delivery Oxygen Flow Rate 12/20/24 15:45 12/20/24 16:00 12/20/24 16:15 Temperature Pulse Rate 94 104 H 94 Respiratory Rate Blood Pressure 159/67 H 153/76 H 161/73 H Pulse Oximetry Oxygen Delivery Oxygen Flow Rate 12/20/24 16:30 12/20/24 16:45 12/20/24 17:00 Temperature Pulse Rate 91 104 H 129 H Respiratory Rate Blood Pressure 147/77 H 143/66 H 159/67 H Pulse Oximetry Oxygen Delivery Oxygen Flow Rate 12/20/24 17:15 12/20/24 17:30 12/20/24 17:45 Temperature Pulse Rate 111 H 102 H 116 H Respiratory Rate Blood Pressure 159/68 H 152/65 H 149/73 H Pulse Oximetry Oxygen Delivery Oxygen Flow Rate 12/20/24 18:00 12/20/24 18:15 12/20/24 18:30 Temperature Pulse Rate 120 H 126 H 107 H Respiratory Rate Blood Pressure 133/66 151/79 H 172/59 H Pulse Oximetry Oxygen Delivery Oxygen Flow Rate 12/20/24 18:42 12/20/24 19:00 12/20/24 23:40 Temperature 99.0 F Pulse Rate 126 H 120 H 95 Respiratory Rate 20 Blood Pressure 155/72 H 114/66 Pulse Oximetry 98 Oxygen Delivery Oxygen Flow Rate 12/21/24 00:11 12/21/24 04:00 12/21/24 06:00 Temperature 98.2 F 98.2 F Pulse Rate 97 100 93 Respiratory Rate 18 18 Blood Pressure 117/47 L 120/54 L Pulse Oximetry 99 98 Oxygen Delivery Oxygen Flow Rate 12/21/24 08:30 12/21/24 10:09 Temperature Pulse Rate 94 Respiratory Rate Blood Pressure Pulse Oximetry 97 Oxygen Delivery Nasal Cannula Oxygen Flow Rate 4 Intake/Output Intake/Output: Intake & Output 12/18/24 12/19/24 12/20/24 12/21/24 23:59 23:59 23:59 23:59 Intake Total 360 Output Total 3000 0 Balance -3000 360 Meds/Results Medications: Active Medications Generic Name Dose Route Start Last Admin Trade Name Natanq PRN Reason Stop Dose Admin Acetaminophen 650 mg 12/20/24 11:55 Acetaminophen 325 Mg Tablet PO Q4H PRN Mild Pain (1-3) or Fever Hydrocodone Bitart/Acetaminophen 1 tab 12/20/24 11:55 Hydrocodone/Acetaminophen (*Crx) 5-325 Mg Tablet PO Q4H PRN Pain Rated 4-6 Aspirin 81 mg 12/21/24 08:30 12/21/24 10:09 Aspirin 81 Mg Chewable Tablet PO 81 mg DAILY@0800 [facility] Administration Calcitriol 1.25 mcg 12/23/24 09:00 Calcitriol 0.25 Mcg Capsule PO TuThSa@0900 [facility] Carvedilol 25 mg 12/21/24 09:00 12/21/24 10:09 Carvedilol 25 Mg Tablet PO 25 mg Q12HR DAVID Administration Finasteride 5 mg 12/21/24 09:00 12/21/24 10:09 Finasteride 5 Mg Tablet PO 5 mg QAM DAVID Administration Fish Oil 2 gm 12/21/24 09:00 12/21/24 10:09 Sledge 3 Polyunsat Fatty Acids 1 Gm Cap PO 2 gm QAM DAVID Administration Furosemide 80 mg 12/21/24 09:00 12/21/24 10:08 Furosemide 80 Mg Tablet PO 80 mg BID DAVID Administration Albumin Human 50 mls @ 999 mls/hr 12/20/24 11:11 Albutein IVPB 12/21/24 11:10 Q10M PRN HYPOTENSION Ondansetron HCl 4 mg 12/20/24 11:55 Ondansetron Inj 4 Mg/2 Ml Vial IV PUSH Q4H PRN Nausea Sevelamer Carbonate 3.2 gm 12/21/24 08:00 12/21/24 10:13 Sevelamer Carbonate 0.8 Gm Oral Powder Packet PO 3.2 gm TIDWM DAVID Administration Tamsulosin HCl 0.4 mg 12/21/24 21:00 Tamsulosin Hcl 0.4 Mg Capsule PO QHS [facility] Radiology Results: ITS Impressions Chest X-Ray 12/20/24 09:08 IMPRESSION: 1. Pulmonary vascular congestion and mild pulmonary edema at the lung bases. Head CT 12/20/24 22:14 IMPRESSION: No acute intracranial findings. Labs Labs: Laboratory Results - last 24 hr 12/20/24 12/21/24 11:48 06:11 WBC 3.8 L RBC 3.42 L Hgb 9.1 L Hct 30.3 L MCV 88.6 MCH 26.6 MCHC 30.0 L RDW 17.8 H Plt Count 191 MPV 10.9 H Immature Gran % (Auto) 1.3 H Neut % (Auto) 76.3 H Lymph % (Auto) 9.1 L [place] % (Auto) 12.0 H Eos % (Auto) 0.8 Baso % (Auto) 0.5 Lymph # (Auto) 0.34 L [place] # (Auto) 0.5 Eos # (Auto) 0.0 Baso # (Auto) 0.0 Abs Immat Gran (auto) 0.05 H Absolute Neuts (auto) 2.9 Absolute Nucleated RBC 0.000 Nucleated RBC % 0.0 Sodium 132 L Potassium 3.9 Chloride 92 L Carbon Dioxide 31 H Anion Gap 9 BUN 38 H D Creatinine 4.07 H Estim Creat Clear Calc 15 Estimated GFR 14 L Glucose 164 H Calcium 8.5 Phosphorus 4.8 H Magnesium 1.8 Albumin 2.9 L Triglycerides 63 Cholesterol 75 LDL Cholesterol Direct < 30 HDL Direct 31 C. difficile (PCR) Negative
--- NOTE | 2024-12-21 10:56 | PC.NURSE ---
Addendum entered by Lian Arce RN 12/21/24 12:16: 1213 family at bedside. Updates given. Daughter and brother have concerns about patient's health specifically getting to HD, his foot, and neck pain/spams that have been going on for at least six months. Will get a hold of Care Coordination, per family request, and see if they can reach out to the [facility] at [phone]. Original Note: 0817 patient sleeping for initial attempt for morning assessment. [id number] orders entered by MD, morning assessment and medication administration. Patient friendly and cooperative. He is up to the bedside chair. Patient states he has acute onset of limited movement of his B shoulders and does not know why . No complaints of pain. Ice water given.
[2024-12-21 13:42] LABS: Alveolar/Arterial O2 Gradient 99.3 mmHg; Base Excess ABG 5.8 mEq/l (+/-2.0); Fractional Inspired Oxygen 32 %; HCO3 ABG 31.5 mEq/l (22.0-26.0); Oxygen Content ABG 12.3 %vol (16.0-22.0); Oxygen Saturation ABG 93.5 % (95.0-100.0); Oxyhemoglobin 91.7 % THb (90.0-100.0); PCO2 ABG 51.7 mmHg (35.0-45.0); PO2 ABG 68.4 mmHg (80.0-100.0); PO2 FiO2 Ratio Arterial Blood 2.14 %; Total Hemoglobin 9.5 g/dL (12.0-18.0); pH ABG 7.402 (7.350-7.450)
[2024-12-21 13:45] LABS: Device NASAL CANNULA; Modified Allen's Test Pass; Site Drawn RIGHT RADIAL
[2024-12-21] MEDS: EPOETIN ALFA-EPBX 10,000 UNITS/ML VIAL 10000 UNITS SUB-Q (17:08)
[2024-12-21] MEDS: TAMSULOSIN HCL 0.4 MG CAPSULE PO (21:59)
[2024-12-22] VITALS (27 sets, daily range): BP systolic 93–146; BP diastolic 45–90; PULSE 66–92; RESP 16–20; TEMP 36.3–37.6; O2SAT 93–100
[2024-12-22 05:58] LABS: Hematocrit 28.9 % (42.0-52.0); Hemoglobin 8.7 g/dL (14.0-18.0); Mean Corpuscular HGB Conc 30.1 g/dl (32-36); Mean Corpuscular Hemoglobin 27.2 pg (26-34); Mean Corpuscular Volume 90.3 fl (80-100); Mean Platelet Volume 11.7 fl (7.4-10.4); Platelet Count Result 197 k/mm3 (150-375); Red Cell Distribution Width 17.8 % (11.5-14.5); White Blood Count 3.9 K/mm3 (4.5-10.0)
[2024-12-22 06:02] LABS: Albumin Level 2.8 g/dL (3.5-5.1); Anion Gap 7 mmol/L (4-12); Blood Urea Nitrogen 46 mg/dL (9-20); Calcium 8.5 mg/dL (8.4-10.2); Carbon Dioxide 34 mmol/L (22-30); Chloride 90 mmol/L (98-107); Estimated CRCL calculation 11 ml/min; Estimated Glomerular Filt Rate 10; Glucose 134 mg/dL (65-110); Phosphorus 5.7 mg/dL (2.5-4.5); Potassium 3.7 mmol/L (3.4-5.0); Sodium 131 mmol/L (137-145)
--- NOTE | 2024-12-22 07:44 | P.PNIM_ITS ---
Progress Note: A&P Assessment and Plan (1) Volume overload: Code(s): E87.70 - Fluid overload, unspecified Status: Acute (2) Diarrhea: Code(s): R19.7 - Diarrhea, unspecified Status: Acute (3) Fall: Code(s): W19.XXXA - Unspecified fall, initial encounter Status: Acute (4) End-stage renal disease on hemodialysis: Code(s): N18.6 - End stage renal disease; Z99.2 - Dependence on renal dialysis Status: Acute (5) Influenza: Code(s): J11.1 - Influenza due to unidentified influenza virus with other respiratory manifestations Status: Acute (6) COPD (chronic obstructive pulmonary disease): Qualifiers: COPD type: unspecified COPD Qualified Code(s): J44.9 - Chronic obstructive pulmonary disease, unspecified Code(s): J44.9 - Chronic obstructive pulmonary disease, unspecified Status: Chronic (7) Weakness: Code(s): R53.1 - Weakness Status: Acute (8) Hyponatremia: Code(s): E87.1 - Hypo-osmolality and hyponatremia Status: Acute (9) IDDM (insulin dependent diabetes mellitus): Status: Chronic Plan Patient was admitted to medical floor. He has already undergone dialysis which should improve his volume overload. Given his persistent edema, he most likely will need further HD on his non-dialysis days to get him to his dry weight. Suspect the hyponatremia is related to fluid overload. Nephrology consulted and appreciate their input. He was treated with Levaquin last admission so consider C diff. C diff toxin and stool cultures ordered. Monitor stool output. Consider CT the abdomen and pelvis if his clinical exam changes but at the moment, the patient's abdominal exam is benign. Hgb stable on admission. Follow clinically. Patient had a fall out of his wheelchair this morning. Documented that there was no injury. No focal findings but given his confusion, will proceed with head CT. Hold ASA. Patient tested positive with influenza A again. In immunocompetent host, influenza viral shedding can last 5-10 days. However, patient's with chronic illnesses can she had a virus for weeks. CXR is more consistent with fluid overload. He was treated with Tamiflu <2 weeks ago. Will hold off on repeating treatment at this time since this could negatively impact his mental status and feel that the positive influenza test was just residual from his last hospitalization. Will start PT/OT. Further recommendations as course dictates. 12/21/24 - Patient still on oxygen. May need an extra dialysis treatment tomorrow. Wean O2 as tolerated. Diarrhea appears to be waning. CDiff negative. Monitor stool output. Hgb noted - monitor HH. He remains sleepy and nods off. Probably related to his untreated CARITO. Will check ABG. Still with cough but feel the influenza A test was a residual from 10 days ago. Check sputum. Hold on abx. PT/OT to evaluate. 12/22/24 - Patient feels much better today. Agree with HD today then resume his -Sun schedule tomorrow. CXR still showing pulmonary edema. Continue to use HD to control fluid status. Confusion better. His A1c 6.2%. Will resume Lantus tonight at lower dose but continue to hold meal time lispro. Home med list has been reconcilled and reviewed now. Diarrhea has returned. Stool culture ordered but not yet collected. Continue PT/OT. Possible discharge tomorrow after HD. Apprecaite nephrology's help DVT Prophylaxis - SCDs Code status - Full Subjective Date/time seen: 12/22/24 07:44 Interval history: 79yo male with COPD, CAD, anemia, DM and ESRD on HD here for weakness and falling. He feels 'a lot better'. SOB better. no CP. Diarrhea with 2 loose stools today and 3 yesterday. Denies having chronic diarrhea. He has low glucoses 1-2x/month. Exam Narrative: AF 98.3 108/59 78 20 100% 2L Gen - NARD sitting at the side of the bed. Chest - bibasilar crackles. nml RR CV - irregular and tachycardic. S1-S2. Tele showing patient appears to be in/out of AFib Abd - soft. NT/ND Ext - 1-2+ pedal edema Neuro - AO x4. Psych - pleasant and cooperative. Skin - warm and dry. multiple dried eschars involving all extremities. Objective Data Vital Signs Vital Signs: Vital Signs - 24 hr 12/21/24 08:00 12/21/24 08:30 12/21/24 10:09 Temperature Pulse Rate 88 94 Respiratory Rate Blood Pressure Pulse Oximetry 97 Oxygen Delivery Nasal Cannula Oxygen Flow Rate 4 12/21/24 12:00 12/21/24 14:00 12/21/24 16:00 Temperature 97.3 F L Pulse Rate 88 74 81 Respiratory Rate 24 H Blood Pressure 91/50 L Pulse Oximetry 98 Oxygen Delivery Oxygen Flow Rate 12/21/24 20:00 12/21/24 20:00 12/21/24 21:58 Temperature Pulse Rate 83 94 93 Respiratory Rate 20 Blood Pressure Pulse Oximetry 95 Oxygen Delivery Nasal Cannula Oxygen Flow Rate 2 12/21/24 22:00 12/22/24 00:00 12/22/24 04:00 Temperature 97.9 F Pulse Rate 83 89 77 Respiratory Rate 20 Blood Pressure 117/61 Pulse Oximetry 95 Oxygen Delivery Oxygen Flow Rate 12/22/24 05:46 Temperature 98.3 F Pulse Rate 78 Respiratory Rate 20 Blood Pressure 108/59 L Pulse Oximetry 100 Oxygen Delivery Oxygen Flow Rate Intake/Output Intake/Output: Intake & Output 12/19/24 12/20/24 12/21/24 12/22/24 23:59 23:59 23:59 23:59 Intake Total 840 375 Output Total 3000 0 Balance -3000 840 375 Meds/Results Medications: Active Medications Generic Name Dose Route Start Last Admin Trade Name Freq PRN Reason Stop Dose Admin Acetaminophen 650 mg 12/20/24 11:55 Acetaminophen 325 Mg Tablet PO Q4H PRN Mild Pain (1-3) or Fever Hydrocodone Bitart/Acetaminophen 1 tab 12/20/24 11:55 Hydrocodone/Acetaminophen (*Crx) 5-325 Mg Tablet PO Q4H PRN Pain Rated 4-6 Aspirin 81 mg 12/21/24 08:30 12/21/24 10:09 Aspirin 81 Mg Chewable Tablet PO 81 mg DAILY@0800 DAVID Administration Atorvastatin Calcium 20 mg 12/22/24 09:00 Atorvastatin 20 Mg Tablet PO DAILY [facility] Calcitriol 1.25 mcg 12/23/24 09:00 Calcitriol 0.25 Mcg Capsule PO TuThSa@0900 [facility] Carvedilol 25 mg 12/21/24 09:00 12/21/24 21:58 Carvedilol 25 Mg Tablet PO 25 mg Q12HR DAVID Administration Dextrose 12.5 gm 12/22/24 07:20 Dextrose 50% 25 Gm/50 Ml Syringe IV PUSH PRN PRN Hypoglycemia Protocol Finasteride 5 mg 12/21/24 09:00 12/21/24 10:09 Finasteride 5 Mg Tablet PO 5 mg QAM DAVID Administration Fish Oil 2 gm 12/21/24 09:00 12/21/24 10:09 [place] 3 Polyunsat Fatty Acids 1 Gm Cap PO 2 gm QAM DAVID Administration Furosemide 80 mg 12/21/24 09:00 12/21/24 17:08 Furosemide 80 Mg Tablet PO 80 mg BID DAVID Administration Glucagon 1 mg 12/22/24 07:20 Glucagon For Inj 1 Mg Vial IM PRN PRN Hypoglycemia Protocol Glucose 15 gm 12/22/24 07:20 Glucose Oral Gel 15 Gm Of Glucse In 37.5 Gm Tube PO PRN PRN Hypoglycemia Protocol Albumin Human 50 mls @ 999 mls/hr 12/21/24 21:18 Albutein IVPB 01/20/25 21:17 Q10M PRN HYPOTENSION Dextrose 1,000 mls @ 100 mls/hr 12/22/24 07:20 Dextrose 5% 1,000 Ml IVPB PRN PRN Hypoglycemia Protocol Insulin Aspart 2 - 5 units 12/22/24 08:00 Insulin Aspart (*Bkc) 100 Units/Ml SUB-Q TIDWM [facility] Protocol Ondansetron HCl 4 mg 12/20/24 11:55 Ondansetron Inj 4 Mg/2 Ml Vial IV PUSH Q4H PRN Nausea Sevelamer Carbonate 3.2 gm 12/21/24 08:00 12/21/24 17:09 Sevelamer Carbonate 0.8 Gm Oral Powder Packet PO 3.2 gm TIDWM DAVID Administration Tamsulosin HCl 0.4 mg 12/21/24 21:00 12/21/24 21:59 Tamsulosin Hcl 0.4 Mg Capsule PO 0.4 mg QHS DVAID Administration Radiology Results: ITS Impressions Head CT 12/20/24 22:14 IMPRESSION: No acute intracranial findings. Chest X-Ray 12/22/24 07:42 Impression: Central congestive change and possible minimal central pulmonary edema. Stable cardiomegaly, with loop recorder. Labs Labs: Laboratory Results - last 24 hr 12/21/24 12/22/24 13:32 05:17 WBC 3.9 L RBC 3.20 L Hgb 8.7 L Hct 28.9 L MCV 90.3 MCH 27.2 MCHC 30.1 L RDW 17.8 H Plt Count 197 MPV 11.7 H Puncture Site Right radial ABG pH 7.402 ABG pCO2 51.7 H ABG pO2 68.4 L ABG PO2/FiO2 Ratio 2.14 ABG HCO3 31.5 H ABG O2 Saturation 93.5 L ABG O2 Content 12.3 L ABG Base Excess 5.8 A-a Gradient 99.3 Oxyhemoglobin 91.7 Total Hemoglobin 9.5 L O2 Delivery Device Nasal cannula O2 Liters/Min 3.0 FiO2 32 Sodium 131 L Potassium 3.7 Chloride 90 L Carbon Dioxide 34 H Anion Gap 7 BUN 46 H Creatinine 5.76 H Estim Creat Clear Calc 11 Estimated GFR 10 L Glucose 134 H Calcium 8.5 Phosphorus 5.7 H Albumin 2.8 L
--- NOTE | 2024-12-22 08:59 | PCOTNOTE ---
The patient initial occupational therapy evaluation was not able to be completed on 12/22 due to patient being in dialysis. Will plan to evaluate when able.
[2024-12-22 09:57] LABS: Hemoglobin A1C 6.2 % (<5.7)
[2024-12-22] MEDS: ALBUMIN HUMAN 25% 12.5 GM/50ML 50 ML 50 GM (10:18)
--- NOTE | 2024-12-22 10:25 | PM.PNNEP ---
Subjective Date/time seen: 12/22/24 10:25 Interval history: Follow-up end stage renal disease on hemodialysis. Chart reviewed -- assuming care from Dr. Tang; tolerating dry ultrafiltration treatment at the time of my visit (seen on [facility]F at 10:15AM); Objective Data Vital Signs Vital Signs: Vital Signs Temp Pulse Resp BP Pulse Ox O2 Del Method O2 Flow Rate 12/22/24 10:15 92 146/90 H 12/22/24 10:00 72 93/50 L 12/22/24 09:45 71 99/48 L 12/22/24 09:30 85 103/57 L 12/22/24 09:15 81 108/58 L 12/22/24 09:00 78 119/56 L 12/22/24 08:45 89 101/51 L 12/22/24 08:26 80 125/59 L 12/22/24 08:17 97.4 F L 77 16 118/55 L 96 12/22/24 08:15 2 12/22/24 08:00 74 12/22/24 08:00 99 Nasal Cannula 2 12/22/24 05:46 98.3 F 78 20 108/59 L 100 12/22/24 04:00 77 12/22/24 00:00 89 12/21/24 22:00 97.9 F 83 20 117/61 95 12/21/24 21:58 93 12/21/24 20:00 94 12/21/24 20:00 83 20 95 Nasal Cannula 2 Intake/Output Intake/Output: Intake & Output 12/19/24 12/20/24 12/21/24 12/22/24 23:59 23:59 23:59 23:59 Intake Total 840 615 Output Total 3000 0 3000 Balance -3000 840 -2385 Meds/Results Medications: Active Medications Generic Name Dose Route Start Last Admin Trade Name Freq PRN Reason Stop Dose Admin Acetaminophen 650 mg 12/20/24 11:55 Acetaminophen 325 Mg Tablet PO Q4H PRN Mild Pain (1-3) or Fever Hydrocodone Bitart/Acetaminophen 1 tab 12/20/24 11:55 Hydrocodone/Acetaminophen (*Crx) 5-325 Mg Tablet PO Q4H PRN Pain Rated 4-6 Aspirin 81 mg 12/21/24 08:30 12/22/24 12:28 Aspirin 81 Mg Chewable Tablet PO 81 mg DAILY@0800 DAVID Administration Atorvastatin Calcium 20 mg 12/22/24 09:00 12/22/24 12:29 Atorvastatin 20 Mg Tablet PO 20 mg DAILY DAVID Administration Calcitriol 1.25 mcg 12/23/24 09:00 Calcitriol 0.25 Mcg Capsule PO TuThSa@0900 [facility] Carvedilol 25 mg 12/21/24 09:00 12/22/24 12:29 Carvedilol 25 Mg Tablet PO 25 mg Q12HR DAVID Administration Dextrose 12.5 gm 12/22/24 07:20 Dextrose 50% 25 Gm/50 Ml Syringe IV PUSH PRN PRN Hypoglycemia Protocol Finasteride 5 mg 12/21/24 09:00 12/22/24 12:29 Finasteride 5 Mg Tablet PO 5 mg QAM DAVID Administration Fish Oil 2 gm 12/21/24 09:00 12/22/24 12:28 [place] 3 Polyunsat Fatty Acids 1 Gm Cap PO 2 gm QAM DAVID Administration Furosemide 80 mg 12/21/24 09:00 12/22/24 17:18 Furosemide 80 Mg Tablet PO 80 mg BID DAVID Administration Glucagon 1 mg 12/22/24 07:20 Glucagon For Inj 1 Mg Vial IM PRN PRN Hypoglycemia Protocol Glucose 15 gm 12/22/24 07:20 Glucose Oral Gel 15 Gm Of Glucse In 37.5 Gm Tube PO PRN PRN Hypoglycemia Protocol Albumin Human 50 mls @ 999 mls/hr 12/21/24 21:18 Albutein IVPB 01/20/25 21:17 Q10M PRN HYPOTENSION Dextrose 1,000 mls @ 100 mls/hr 12/22/24 07:20 Dextrose 5% 1,000 Ml IVPB PRN PRN Hypoglycemia Protocol Insulin Aspart 2 - 5 units 12/22/24 08:00 12/22/24 17:12 Insulin Aspart (*Bkc) 100 Units/Ml SUB-Q Not Given TIDWM [facility] Protocol Insulin Glargine 4 units 12/22/24 21:00 Insulin Glargine (*Bkc) 100 Units/Ml SUB-Q HS [facility] Ondansetron HCl 4 mg 12/20/24 11:55 Ondansetron Inj 4 Mg/2 Ml Vial IV PUSH Q4H PRN Nausea Sevelamer Carbonate 3.2 gm 12/21/24 08:00 12/22/24 17:18 Sevelamer Carbonate 0.8 Gm Oral Powder Packet PO 3.2 gm TIDWM DAVID Administration Tamsulosin HCl 0.4 mg 12/21/24 21:00 12/21/24 21:59 Tamsulosin Hcl 0.4 Mg Capsule PO 0.4 mg QHS DAVID Administration Radiology Results: ITS Impressions Head CT 12/20/24 22:14 IMPRESSION: No acute intracranial findings. Chest X-Ray 12/22/24 07:42 Impression: Central congestive change and possible minimal central pulmonary edema. Stable cardiomegaly, with loop recorder. Labs Labs: Laboratory Tests 12/22/24 05:17 12/22/24 05:17 12/22/24 12/22/24 12/22/24 05:17 07:31 12:29 WBC 3.9 L RBC 3.20 L Hgb 8.7 L Hct 28.9 L MCV 90.3 MCH 27.2 MCHC 30.1 L RDW 17.8 H Plt Count 197 MPV 11.7 H Sodium 131 L Potassium 3.7 Chloride 90 L Carbon Dioxide 34 H Anion Gap 7 BUN 46 H Creatinine 5.76 H Estim Creat Clear Calc 11 Estimated GFR 10 L Glucose 134 H POC Capillary Glucose 140 H Hemoglobin A1c 6.2 H Calcium 8.5 Phosphorus 5.7 H Albumin 2.8 L
[2024-12-22] MEDS: ASPIRIN 81 MG CHEWABLE TABLET PO (12:28)
[2024-12-22] MEDS: OMEGA 3 POLYUNSAT FATTY ACIDS 1 GM CAP 2 GM PO (12:28)
[2024-12-22] MEDS: ATORVASTATIN 20 MG TABLET PO (12:29)
[2024-12-22] MEDS: FUROSEMIDE 80 MG TABLET PO ×2 (12:29→17:18)
[2024-12-22] MEDS: SEVELAMER CARBONATE 0.8 GM ORAL POWDER PACKET 3.2 GM PO ×2 (12:29→17:18)
[2024-12-22] MEDS: carvediloL 25 MG TABLET PO ×2 (12:29→20:18)
[2024-12-22] MEDS: FINASTERIDE 5 MG TABLET PO (12:29)
[2024-12-22 12:38] LABS: Glucose Point of Care 140 mg/dl (65-105)
[2024-12-22 16:57] LABS: Glucose Point of Care 188 mg/dl (65-105)
[2024-12-22] MEDS: TAMSULOSIN HCL 0.4 MG CAPSULE PO (20:18)
[2024-12-22] MEDS: INSULIN GLARGINE (*BKC) 100 UNITS/ML SUB-Q (20:20)
[2024-12-22 21:57] LABS: Glucose Point of Care 259 mg/dl (65-105)
[2024-12-23] VITALS (26 sets, daily range): BP systolic 103–136; BP diastolic 46–71; PULSE 61–89; RESP 18–20; TEMP 36.5–37.3; O2SAT 90–100
--- NOTE | 2024-12-23 06:21 | PM.IMPN ---
Progress Note: A&P Assessment and Plan (1) Volume overload: Code(s): E87.70 - Fluid overload, unspecified Status: Acute (2) Diarrhea: Code(s): R19.7 - Diarrhea, unspecified Status: Acute (3) Fall: Code(s): W19.XXXA - Unspecified fall, initial encounter Status: Acute (4) End-stage renal disease on hemodialysis: Code(s): N18.6 - End stage renal disease; Z99.2 - Dependence on renal dialysis Status: Acute (5) Influenza: Code(s): J11.1 - Influenza due to unidentified influenza virus with other respiratory manifestations Status: Acute (6) COPD (chronic obstructive pulmonary disease): Qualifiers: COPD type: unspecified COPD Qualified Code(s): J44.9 - Chronic obstructive pulmonary disease, unspecified Code(s): J44.9 - Chronic obstructive pulmonary disease, unspecified Status: Chronic (7) Weakness: Code(s): R53.1 - Weakness Status: Acute (8) Hyponatremia: Code(s): E87.1 - Hypo-osmolality and hyponatremia Status: Acute (9) IDDM (insulin dependent diabetes mellitus): Status: Chronic Plan Patient was admitted to medical floor. He has already undergone dialysis which should improve his volume overload. Given his persistent edema, he most likely will need further HD on his non-dialysis days to get him to his dry weight. Suspect the hyponatremia is related to fluid overload. Nephrology consulted and appreciate their input. He was treated with Levaquin last admission so consider C diff. C diff toxin and stool cultures ordered. Monitor stool output. Consider CT the abdomen and pelvis if his clinical exam changes but at the moment, the patient's abdominal exam is benign. Hgb stable on admission. Follow clinically. Patient had a fall out of his wheelchair this morning. Documented that there was no injury. No focal findings but given his confusion, will proceed with head CT. Hold ASA. Patient tested positive with influenza A again. In immunocompetent host, influenza viral shedding can last 5-10 days. However, patient's with chronic illnesses can she had a virus for weeks. CXR is more consistent with fluid overload. He was treated with Tamiflu <2 weeks ago. Will hold off on repeating treatment at this time since this could negatively impact his mental status and feel that the positive influenza test was just residual from his last hospitalization. Will start PT/OT. Further recommendations as course dictates. 12/21/24 - Patient still on oxygen. May need an extra dialysis treatment tomorrow. Wean O2 as tolerated. Diarrhea appears to be waning. CDiff negative. Monitor stool output. Hgb noted - monitor HH. He remains sleepy and nods off. Probably related to his untreated CARITO. Will check ABG. Still with cough but feel the influenza A test was a residual from 10 days ago. Check sputum. Hold on abx. PT/OT to evaluate. 12/22/24 - Patient feels much better today. Agree with HD today then resume his schedule tomorrow. CXR still showing pulmonary edema. Continue to use HD to control fluid status. Confusion better. His A1c 6.2%. Will resume Lantus tonight at lower dose but continue to hold meal time lispro. Home med list has been reconcilled and reviewed now. Diarrhea has returned. Stool culture ordered but not yet collected. Continue PT/OT. Possible discharge tomorrow after HD. Apprecaite nephrology's help DVT Prophylaxis - SCDs Code status - Full Subjective Date/time seen: 12/23/24 06:21 Interval history: 79yo male with COPD, CAD, anemia, DM and ESRD on HD here for weakness and falling. Exam Narrative: AF 97.8 113/63 67 20 100% 1L Gen - NARD sitting at the side of the bed. Chest - bibasilar crackles. nml RR CV - irregular and tachycardic. S1-S2. Tele showing patient appears to be in/out of AFib Abd - soft. NT/ND Ext - 1-2+ pedal edema Neuro - AO x4. Psych - pleasant and cooperative. Skin - warm and dry. multiple dried eschars involving all extremities. Objective Data Vital Signs Vital Signs: Vital Signs - 24 hr 12/22/24 08:00 12/22/24 08:00 12/22/24 08:15 Temperature Pulse Rate 74 Respiratory Rate Blood Pressure Pulse Oximetry 99 Oxygen Delivery Nasal Cannula Oxygen Flow Rate 2 2 12/22/24 08:17 12/22/24 08:26 12/22/24 08:45 Temperature 97.4 F L Pulse Rate 77 80 89 Respiratory Rate 16 Blood Pressure 118/55 L 125/59 L 101/51 L Pulse Oximetry 96 Oxygen Delivery Oxygen Flow Rate 12/22/24 09:00 12/22/24 09:15 12/22/24 09:30 Temperature Pulse Rate 78 81 85 Respiratory Rate Blood Pressure 119/56 L 108/58 L 103/57 L Pulse Oximetry Oxygen Delivery Oxygen Flow Rate 12/22/24 09:45 12/22/24 10:00 12/22/24 10:15 Temperature Pulse Rate 71 72 92 Respiratory Rate Blood Pressure 99/48 L 93/50 L 146/90 H Pulse Oximetry Oxygen Delivery Oxygen Flow Rate 12/22/24 10:30 12/22/24 10:45 12/22/24 11:00 Temperature Pulse Rate 73 73 73 Respiratory Rate Blood Pressure 108/50 L 103/45 L 105/49 L Pulse Oximetry Oxygen Delivery Oxygen Flow Rate 12/22/24 11:15 12/22/24 11:26 12/22/24 11:44 Temperature 97.7 F Pulse Rate 72 72 79 Respiratory Rate 16 Blood Pressure 97/48 L 96/45 L 101/52 L Pulse Oximetry 100 Oxygen Delivery Oxygen Flow Rate 12/22/24 12:00 12/22/24 12:29 12/22/24 14:00 Temperature 97.6 F Pulse Rate 77 79 66 Respiratory Rate 16 Blood Pressure 102/57 L Pulse Oximetry 97 Oxygen Delivery Oxygen Flow Rate 12/22/24 15:26 12/22/24 15:52 12/22/24 20:00 Temperature Pulse Rate 79 Respiratory Rate Blood Pressure Pulse Oximetry 93 Oxygen Delivery Nasal Cannula Nasal Cannula Oxygen Flow Rate 2 2 12/22/24 20:00 12/22/24 20:17 12/22/24 20:18 Temperature 97.7 F Pulse Rate 73 75 Respiratory Rate 20 20 Blood Pressure 106/49 L Pulse Oximetry 99 99 Oxygen Delivery Nasal Cannula Oxygen Flow Rate 1 12/23/24 00:00 12/23/24 04:00 12/23/24 04:25 Temperature 97.8 F Pulse Rate 75 75 67 Respiratory Rate 20 Blood Pressure 113/63 Pulse Oximetry 100 Oxygen Delivery Oxygen Flow Rate Intake/Output Intake/Output: Intake & Output 12/20/24 12/21/24 12/22/24 12/23/24 23:59 23:59 23:59 23:59 Intake Total 840 855 490 Output Total 3000 0 3000 Balance -3000 840 -2145 490 Meds/Results Medications: Active Medications Generic Name Dose Route Start Last Admin Trade Name Freq PRN Reason Stop Dose Admin Acetaminophen 650 mg 12/20/24 11:55 Acetaminophen 325 Mg Tablet PO Q4H PRN Mild Pain (1-3) or Fever Hydrocodone Bitart/Acetaminophen 1 tab 12/20/24 11:55 Hydrocodone/Acetaminophen (*Crx) 5-325 Mg Tablet PO Q4H PRN Pain Rated 4-6 Aspirin 81 mg 12/21/24 08:30 12/22/24 12:28 Aspirin 81 Mg Chewable Tablet PO 81 mg DAILY@0800 DAVID Administration Atorvastatin Calcium 20 mg 12/22/24 09:00 12/22/24 12:29 Atorvastatin 20 Mg Tablet PO 20 mg DAILY DAVID Administration Calcitriol 1.25 mcg 12/23/24 09:00 Calcitriol 0.25 Mcg Capsule PO TuThSa@0900 DAVID Carvedilol 25 mg 12/21/24 09:00 12/22/24 20:18 Carvedilol 25 Mg Tablet PO 25 mg Q12HR DAVID Administration Dextrose 12.5 gm 12/22/24 07:20 Dextrose 50% 25 Gm/50 Ml Syringe IV PUSH PRN PRN Hypoglycemia Protocol Finasteride 5 mg 12/21/24 09:00 12/22/24 12:29 Finasteride 5 Mg Tablet PO 5 mg QAM DAVID Administration Fish Oil 2 gm 12/21/24 09:00 12/22/24 12:28 [place] 3 Polyunsat Fatty Acids 1 Gm Cap PO 2 gm QAM DAVID Administration Furosemide 80 mg 12/21/24 09:00 12/22/24 17:18 Furosemide 80 Mg Tablet PO 80 mg BID DAVID Administration Glucagon 1 mg 12/22/24 07:20 Glucagon For Inj 1 Mg Vial IM PRN PRN Hypoglycemia Protocol Glucose 15 gm 12/22/24 07:20 Glucose Oral Gel 15 Gm Of Glucse In 37.5 Gm Tube PO PRN PRN Hypoglycemia Protocol Albumin Human 50 mls @ 999 mls/hr 12/21/24 21:18 Albutein IVPB 01/20/25 21:17 Q10M PRN HYPOTENSION Dextrose 1,000 mls @ 100 mls/hr 12/22/24 07:20 Dextrose 5% 1,000 Ml IVPB PRN PRN Hypoglycemia Protocol Insulin Aspart 2 - 5 units 12/22/24 08:00 12/22/24 17:12 Insulin Aspart (*Bkc) 100 Units/Ml SUB-Q Not Given TIDWM [facility] Protocol Insulin Glargine 4 units 12/22/24 21:00 12/22/24 20:20 Insulin Glargine (*Bkc) 100 Units/Ml SUB-Q 4 units HS DAVID Administration Ondansetron HCl 4 mg 12/20/24 11:55 Ondansetron Inj 4 Mg/2 Ml Vial IV PUSH Q4H PRN Nausea Sevelamer Carbonate 3.2 gm 12/21/24 08:00 12/22/24 17:18 Sevelamer Carbonate 0.8 Gm Oral Powder Packet PO 3.2 gm TIDWM DAVID Administration Tamsulosin HCl 0.4 mg 12/21/24 21:00 12/22/24 20:18 Tamsulosin Hcl 0.4 Mg Capsule PO 0.4 mg QHS DAVID Administration Radiology Results: ITS Impressions Head CT 12/20/24 22:14 IMPRESSION: No acute intracranial findings. Chest X-Ray 12/22/24 07:42 Impression: Central congestive change and possible minimal central pulmonary edema. Stable cardiomegaly, with loop recorder. Labs Labs: Laboratory Results - last 24 hr 12/22/24 12/22/24 12/22/24 07:31 12:29 16:51 POC Capillary Glucose 140 H 188 H Hemoglobin A1c 6.2 H 12/22/24 20:21 POC Capillary Glucose 259 H Hemoglobin A1c
[2024-12-23 06:23] LABS: Anion Gap 10 mmol/L (4-12); Blood Urea Nitrogen 57 mg/dL (9-20); Calcium 8.5 mg/dL (8.4-10.2); Carbon Dioxide 29 mmol/L (22-30); Chloride 90 mmol/L (98-107); Estimated CRCL calculation 10 ml/min; Estimated Glomerular Filt Rate 8; Glucose 192 mg/dL (65-110); Phosphorus 5.5 mg/dL (2.5-4.5); Sodium 129 mmol/L (137-145)
[2024-12-23 08:22] LABS: Glucose Point of Care 207 mg/dl (65-105)
[2024-12-23] MEDS: INSULIN ASPART (*BKC) 100 UNITS/ML SUB-Q (09:22)
[2024-12-23] MEDS: SODIUM CHLORIDE 0.9% IV 1,000 ML 999 ML IV CONT (10:15)
--- NOTE | 2024-12-23 11:05 | P.PNNP_ITS ---
Subjective Date/time seen: 12/23/24 11:05 Interval history: Follow-up for end stage renal disease on hemodialysis. Tolerating hemodialysis treatment at the time of my visit (seen on HD at ); Objective Data Vital Signs Vital Signs: Vital Signs Temp Pulse Resp BP Pulse Ox O2 Del Method O2 Flow Rate 12/23/24 11:00 78 123/62 12/23/24 10:45 71 124/62 12/23/24 10:30 69 114/65 12/23/24 10:15 61 129/46 L 12/23/24 10:08 99.1 F 75 18 125/69 12/23/24 10:08 4 12/23/24 09:20 100 Nasal Cannula 1 12/23/24 08:00 66 12/23/24 04:25 97.8 F 67 20 113/63 100 12/23/24 04:00 75 12/23/24 00:00 75 12/22/24 20:18 75 12/22/24 20:17 97.7 F 73 20 106/49 L 99 12/22/24 20:00 20 99 Nasal Cannula 1 12/22/24 20:00 79 Intake/Output Intake/Output: Intake & Output 12/20/24 12/21/24 12/22/24 12/23/24 23:59 23:59 23:59 23:59 Intake Total 507 367 5081 Output Total 3000 0 3000 3500 Balance -3000 840 -9486 -1102 Meds/Results Medications: Active Medications Generic Name Dose Route Start Last Admin Trade Name Freq PRN Reason Stop Dose Admin Acetaminophen 650 mg 12/20/24 11:55 Acetaminophen 325 Mg Tablet PO Q4H PRN Mild Pain (1-3) or Fever Hydrocodone Bitart/Acetaminophen 1 tab 12/20/24 11:55 Hydrocodone/Acetaminophen (*Crx) 5-325 Mg Tablet PO Q4H PRN Pain Rated 4-6 Aspirin 81 mg 12/21/24 08:30 12/23/24 15:05 Aspirin 81 Mg Chewable Tablet PO 81 mg DAILY@0800 DAVID Administration Atorvastatin Calcium 20 mg 12/22/24 09:00 12/23/24 15:05 Atorvastatin 20 Mg Tablet PO 20 mg DAILY DAVID Administration Calcitriol 1.25 mcg 12/23/24 09:00 12/23/24 15:05 Calcitriol 0.25 Mcg Capsule PO 1.25 mcg TuThSa@0900 DAVID Administration Carvedilol 25 mg 12/21/24 09:00 12/23/24 15:01 Carvedilol 25 Mg Tablet PO Not Given Q12HR DAVID Dextrose 12.5 gm 12/22/24 07:20 Dextrose 50% 25 Gm/50 Ml Syringe IV PUSH PRN PRN Hypoglycemia Protocol Epoetin David-epbx 10,000 units 12/23/24 18:34 12/23/24 12:13 Epoetin David-Epbx 10,000 Units/Ml Vial IV PUSH 12/23/24 18:35 10,000 units ONCE ONE Administration Finasteride 5 mg 12/21/24 09:00 12/23/24 15:05 Finasteride 5 Mg Tablet PO 5 mg QAM DAVID Administration Fish Oil 2 gm 12/21/24 09:00 12/23/24 15:05 [place] 3 Polyunsat Fatty Acids 1 Gm Cap PO 2 gm QAM DAVID Administration Furosemide 80 mg 12/21/24 09:00 12/23/24 17:33 Furosemide 80 Mg Tablet PO 80 mg BID DAVID Administration Glucagon 1 mg 12/22/24 07:20 Glucagon For Inj 1 Mg Vial IM PRN PRN Hypoglycemia Protocol Glucose 15 gm 12/22/24 07:20 Glucose Oral Gel 15 Gm Of Glucse In 37.5 Gm Tube PO PRN PRN Hypoglycemia Protocol Albumin Human 50 mls @ 999 mls/hr 12/21/24 21:18 [place]in IVPB 01/20/25 21:17 Q10M PRN HYPOTENSION Dextrose 1,000 mls @ 100 mls/hr 12/22/24 07:20 Dextrose 5% 1,000 Ml IVPB PRN PRN Hypoglycemia Protocol Insulin Aspart 2 - 5 units 12/22/24 08:00 12/23/24 17:05 Insulin Aspart (*Bkc) 100 Units/Ml SUB-Q Not Given TIDWM DAVID Protocol Insulin Glargine 4 units 12/22/24 21:00 12/22/24 20:20 Insulin Glargine (*Bkc) 100 Units/Ml SUB-Q 4 units HS DAVID Administration Ondansetron HCl 4 mg 12/20/24 11:55 Ondansetron Inj 4 Mg/2 Ml Vial IV PUSH Q4H PRN Nausea Sevelamer Carbonate 3.2 gm 12/21/24 08:00 12/23/24 17:33 Sevelamer Carbonate 0.8 Gm Oral Powder Packet PO 3.2 gm TIDWM DAVID Administration Tamsulosin HCl 0.4 mg 12/21/24 21:00 12/22/24 20:18 Tamsulosin Hcl 0.4 Mg Capsule PO 0.4 mg QHS DAVID Administration Radiology Results: ITS Impressions Head CT 12/20/24 22:14 IMPRESSION: No acute intracranial findings. Chest X-Ray 12/22/24 07:42 Impression: Central congestive change and possible minimal central pulmonary edema. Stable cardiomegaly, with loop recorder. Labs Labs: Laboratory Tests 12/22/24 05:17 12/23/24 06:00 Calcium 8.5 Phosphorus 5.5 H Albumin 3.0 L
[2024-12-23] MEDS: EPOETIN ALFA-EPBX 10,000 UNITS/ML VIAL 10000 UNITS IV PUSH (12:13)
[2024-12-23 14:55] LABS: Glucose Point of Care 112 mg/dl (65-105)
[2024-12-23] MEDS: ASPIRIN 81 MG CHEWABLE TABLET PO (15:05)
[2024-12-23] MEDS: FINASTERIDE 5 MG TABLET PO (15:05)
[2024-12-23] MEDS: calcitrioL 0.25 MCG CAPSULE 1.25 MCG PO (15:05)
[2024-12-23] MEDS: ATORVASTATIN 20 MG TABLET PO (15:05)
[2024-12-23] MEDS: OMEGA 3 POLYUNSAT FATTY ACIDS 1 GM CAP 2 GM PO (15:05)
--- NOTE | 2024-12-23 15:30 | P.DS_ITS ---
DS: Admitting Diagnosis Discharge Date 12/23/24 Admitting Diagnosis Weakness and falling DS: Discharge Diagnosis Discharge Diagnosis (1) Volume overload: Code(s): E87.70 - Fluid overload, unspecified Status: Acute (2) Diarrhea: Code(s): R19.7 - Diarrhea, unspecified Status: Acute (3) Fall: Code(s): W19.XXXA - Unspecified fall, initial encounter Status: Acute (4) End-stage renal disease on hemodialysis: Code(s): N18.6 - End stage renal disease; Z99.2 - Dependence on renal dialysis Status: Acute (5) Influenza: Code(s): J11.1 - Influenza due to unidentified influenza virus with other respiratory manifestations Status: Acute (6) COPD (chronic obstructive pulmonary disease): Qualifiers: COPD type: unspecified COPD Qualified Code(s): J44.9 - Chronic obstructive pulmonary disease, unspecified Code(s): J44.9 - Chronic obstructive pulmonary disease, unspecified Status: Chronic (7) Weakness: Code(s): R53.1 - Weakness Status: Acute (8) Hyponatremia: Code(s): E87.1 - Hypo-osmolality and hyponatremia Status: Acute (9) IDDM (insulin dependent diabetes mellitus): Status: Chronic DS: Summary Hospital Course Reason for hospitalization: 79yo male with COPD, CAD, anemia, DM and ESRD on HD here for weakness and falling. Please see H&P for details. Hospital Course: Patient was admitted to medical floor. He had undergone dialysis which improved his volume overload. Suspect the hyponatremia was related to fluid overload but remained stable during his hospital course. Nephrology consulted and appreciate their input. He was having diarrhea and was treated with Levaquin last admission but C diff toxin was negative. Stool cultures and sputum cultures ordered but unable to be collected. Abdominal exam was benign. Patient had a fall out of his wheelchair on the morning of admission. Documented that there was no injury. No focal findings but given his confusion, we proceeded with head CT which showed no acute findings. Patient tested positive with influenza A again. In immunocompetent host, influenza viral shedding can last 5-10 days. However, patients with chronic illnesses can she had a virus for weeks. CXR was more consistent with fluid overload. He was treated with Tamiflu <2 weeks ago. We held off on repeating Tamiflu. PT/OT was started. Patient with oxygen requirement and received an extra dialysis treatment with improvement. He was somnolent at times felt related to his untreated CARITO. ABG 7.40/52/68 on 3L. Repeat CXR showing pulmonary edema. He was weaned to 1L with repeat dialysis. Diarrhea slowed. He had clinical improvement and was able to be discharged on 12/23/24. Discharge medications were discussed with nephrology. Status at Discharge Cognitive/behavioral status at discharge: stable Time Spent with Patient Time attestation: Total time spent providing and/or coordinating discharge services: 35 minutes Time spent: Greater than 30 minutes Exam Narrative: AF 97.8 113/63 67 20 100% 1L Gen - NARD currently having HD. Chest - bibasilar crackles with faint expir wheeze CV - irregular. S1-S2. Tele showing AFib with mostly controlled rate Abd - soft. NT/ND Ext - 1+ pedal edema Neuro - alert and appropriate. Psych - pleasant and cooperative. Skin - warm and dry. multiple dried eschars involving all extremities. DS: Data Data Completed and Pending Labs on day of discharge: Labs from last 24 hours 12/23/24 12/23/24 12/23/24 14:47 08:18 06:00 Sodium 129 L Potassium 4.0 Chloride 90 L Carbon Dioxide 29 Anion Gap 10 BUN 57 H D Creatinine 6.42 H Estim Creat Clear Calc 10 Estimated GFR 8 L Glucose 192 H POC Capillary Glucose 112 H 207 H Calcium 8.5 Phosphorus 5.5 H Albumin 3.0 L 12/22/24 12/22/24 20:21 16:51 Sodium Potassium Chloride Carbon Dioxide Anion Gap BUN Creatinine Estim Creat Clear Calc Estimated GFR Glucose POC Capillary Glucose 259 H 188 H Calcium Phosphorus Albumin Discharge Plan Discharge Attending physician on discharge: Raoul Wahl Consulting providers: Brett Tang Discharging Clinician: Raoul Wahl Anticipated Discharge Date/Time: 12/23/24 15:46 Patient Disposition: SNF Activity: as tolerated Diet: renal Discharge Instructions: Please check glucose before meals and before bed. Record for the doctor's review. Check blood pressure 1 to 2 times a day. Record for the doctor's review. Take precautions to avoid falls. The patient is taking both a narcotic and a benzodiazepine. Please have primary provider review medication list to see if this is still appropriate. Rise slowly from a lying or sitting position. Pause before standing or walking. Check daily morning weights after voiding. Call the doctor if the patient gains more than 3 lb in 2 days or 5 lb in 1 week. Contact the doctor if the patient has any type of trauma, lightheadedness with standing or other worrisome symptoms. Avoid NSAIDs (ibuprofen, naproxen, Aleve). Tylenol is safe to take. Continue dialysis schedule. Follow-up with the provider at the facility. Follow-up with Nephrology at dialysis clinic Thank you for using [facility] for your health care needs. Patient Instructions: Pain Management (DC) Patient Language: Romanian Stand Alone Forms: General Discharge Information Follow-up/Referrals: Radha Carrion MD [Primary Care Provider] - Brett Tang MD [Physician] - Discharge Medications: New finasteride [Proscar] 5 mg Tablet 5 mg PO QAM Qty: 30 0RF sevelamer carbonate 0.8 gram Powder In Packet 3.2 g PO TIDWM 30 Days Qty: 60 0RF furosemide 80 mg Tablet 80 mg PO BID Qty: 60 0RF tamsulosin 0.4 mg Capsule 0.4 mg PO QHS Qty: 30 0RF Continued carvedilol 25 mg tablet 25 mg PO BID aspirin 81 mg tablet,delayed release (DR/EC) 81 mg PO DAILY loratadine [Claritin] 10 mg tablet 10 mg PO PRN insulin glargine [Lantus Solostar U-100 Insulin] 100 unit/mL (3 mL) insulin pen 6 unit subcut DAILY atorvastatin 20 mg tablet 20 mg PO DAILY cinacalcet 90 mg PO DAILY Held Trulicity 1.5 mg/0.5 mL pen injector 1.5 mg subcut WEEKLY Hold Instructions: HOLD - resume when okay with your doctor Rx Instructions: takes on Tuesdays insulin lispro 100 unit/mL insulin pen 4 unit subcut .TIDAC Hold Instructions: HOLD - resume when okay with your doctor cyclobenzaprine 10 mg tablet 10 mg PO TID PRN (Reason: muscle spasm) Qty: 30 0RF Hold Instructions: HOLD - resume when okay with the provider amlodipine 10 mg tablet 10 mg PO DAILY Hold Instructions: HOLD - resume when okay with your doctor Date of admission: 12/21/24 08:11 Primary Care Provider: Radha Carrion Admitting Provider: Raoul Wahl Attending physician on admission: Raoul Wahl Condition: Stable Hospitalist MIPS Heart Failure (Exclusion) Patient has history of Heart Transplant or Left Ventricular Assistive Device?: No IF YES, STOP HERE Heart Failure (Qualifier) Patient has current or prior documentation of LVEF less than or equal to 40%, or mod/servere depressed LVSF?: No IF NO, STOP HERE
[2024-12-23 16:59] LABS: Glucose Point of Care 173 mg/dl (65-105)
[2024-12-23] MEDS: FUROSEMIDE 80 MG TABLET PO (17:33)
[2024-12-23] MEDS: SEVELAMER CARBONATE 0.8 GM ORAL POWDER PACKET 3.2 GM PO (17:33)
[2024-12-23] MEDS: INSULIN GLARGINE (*BKC) 100 UNITS/ML SUB-Q (20:35)
[2024-12-23] MEDS: carvediloL 25 MG TABLET PO (20:35)
[2024-12-23] MEDS: TAMSULOSIN HCL 0.4 MG CAPSULE PO (20:35)
[2024-12-24 04:23] LABS: Glucose Point of Care 349 mg/dl (65-105)
== END 2024-12-23 21:20 | DRG 640 ==
LOC: ANHED 09:32 → ANH3MEDSUR 12:45 → ANH2MED 22:23
PROVIDERS: Internal Medicine Nephrology; Admitting Provider Internal Medicine; Emergency Provider Emergency Medicine; PCP Family Medicine; Visit Provider Internal Medicine
DX: E87.79 Other fluid overload (principal); N18.6 End stage renal disease; I13.2 Hypertensive heart and chronic kidney disease with heart failure and with stage 5 chronic kidney disease, or end stage renal disease; J10.1 Influenza due to other identified influenza virus with other respiratory manifestations; Z20.822 Contact with and (suspected) exposure to COVID-19; I73.9 Peripheral vascular disease, unspecified; G47.33 Obstructive sleep apnea (adult) (pediatric); E78.5 Hyperlipidemia, unspecified; E11.22 Type 2 diabetes mellitus with diabetic chronic kidney disease; E87.1 Hypo-osmolality and hyponatremia; J44.9 Chronic obstructive pulmonary disease, unspecified; I50.9 Heart failure, unspecified; I25.10 Atherosclerotic heart disease of native coronary artery without angina pectoris; N40.0 Benign prostatic hyperplasia without lower urinary tract symptoms; W05.0XXA Fall from non-moving wheelchair, initial encounter; Z99.2 Dependence on renal dialysis; Z95.820 Peripheral vascular angioplasty status with implants and grafts; Z95.0 Presence of cardiac pacemaker; Z90.49 Acquired absence of other specified parts of digestive tract; Z95.1 Presence of aortocoronary bypass graft; Z87.891 Personal history of nicotine dependence
CPT/HCPCS: 36415; 36600; 70450; 71045; 80053; 80061; 80069; 82805; 82948; 83036; 83735; 85018; 85025; 85027; 87493; 87637; 93005; 96361; 96374; 96375; 97161; 97165; 99285; A9270; G0257; G0378; J1815; J7030; P9047; Q5105

== ENCOUNTER 2024-12-30 14:52 | Emergency (ER) | payer MEDICARE, OTHER, SELFPAY ==
--- NOTE | ~2024-12-30 | CT_ITS ---
CT facial & cervical spine wo Ordering provider: Jamila Rushing PA-C History: . fall, head injury . Comparison: None. Technique: Thin slice axial CT of the facial bones was performed without contrast. Coronal and sagit pj reformatted images were also obtained. . Automated exposure control and iterative reconstruction technique were employed. The dose-length product was 421.47 mGy-cm. FINDINGS: PARANASAL SINUSES: Bilateral ethmoid sinus disease. Bilaterally maxillary sinus disease more on the r ight. BONES: No facial fracture including no nasal bone fracture. ORBITS AND SUPERFICIAL SOFT TISSUES: The optic globes and orbits are normal. The superficial soft tis sues are normal. VISUALIZED MASTOIDS: Well aerated. LIMITED VISUALIZED BRAIN PARENCHYMA: Normal. IMPRESSION: No facial fracture. Bilateral maxillary and ethmoid sinus disease. CT facial & cervical spine wo Ordering provider: Jamila Rushing PA-C History: . fall, head injury . Comparison: None. Technique: CT of the cervical spine was performed without contrast. Sagittal and coronal reformatted images were also obtained and reviewed. Automated exposure control and iterative reconstruction randi hnique were employed. The dose-length product was 421.47 mGy-cm. 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 Fracture is less likely. Follow-up advised. Compression fra cture is seen in C4 and C5 is most likely chronic. Reversal of lordosis with kyphosis centered at the level of C4. No subluxation. The occipital condyles are intact. DISC SPACES: Narrowing of the disc C3-C4, C4-C5, C5-C6 and C6-C7. Multilevel facet joint disease. Multilevel uncovertebral joint osteoarthritic changes. Multilevel int ervertebral foraminal narrowing. PARASPINOUS SOFT TISSUES: Bilateral carotid calcifications. IMPRESSION: Bifid C1 anteriorly and posteriorly. Possibility of fracture is less likely. Compression fracture of C4 and C5 most likely chronic. Follow-up advised. Multilevel facet joint disease and uncovertebral joint osteoarthritic changes. Bilateral carotid calcifications. Reviewed, dictated and finalized at location A. IMPRESSION: No facial fracture. Bilateral maxillary and ethmoid sinus disease. CT facial & cervical spine wo Ordering provider: Jamila Rushing PA-C History: . fall, head injury . Comparison: None. Technique: CT of the cervical spine was performed without contrast. Sagittal a nd coronal reformatted images were also obtained and reviewed. Automated expos ure control and iterative reconstruction technique were employed. The dose-brenda th product was 421.47 mGy-cm. 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 Fracture is less likely. Follow-up ad vised. Compression fracture is seen in C4 and C5 is most likely chronic. Revers al of lordosis with kyphosis centered at the level of C4. No subluxation. The o ccipital condyles are intact. DISC SPACES: Narrowing of the disc C3-C4, C4-C5, C5-C6 and C6-C7. Multilevel facet joint disease. Multilevel uncovertebral joint osteoarthritic c hanges. Multilevel intervertebral foraminal narrowing. PARASPINOUS SOFT TISSUES: Bilateral carotid calcifications.
--- NOTE | ~2024-12-30 | CT_ITS ---
History: Fall PROCEDURE: CT head without contrast. COMPARISON: 12/20/2024 TECHNIQUE: Axial imaging of the head performed from the skull base to the vertex without IV contrast. Sagittal a nd coronal reformations obtained. DLP: 605 mGy-cm FINDINGS: The ventricles are dilated. The dilatation of the ventricles is proportional to the degree of sulcal prominence, not uncommon in the senescent brain. There is no mass, mass effect or midline shift. There is no abnormal extra-axial fluid collection or intracranial hemorrhage. Near-complete opacification of the right maxillary sinus, largely unchanged from 12/20/2024. Remaining paranasal sinuses are unremarkable. The mastoid air cells are well aerated. No acute displaced fractures within the overlying cranium. Impression: No acute intracranial hemorrhage or suspicious mass effect. Inflammatory sinus disease. Reviewed, dictated and finalized at location A. Impression: No acute intracranial hemorrhage or suspicious mass effect. Inflammatory sinus disease.
[2024-12-30 15:14] VITALS: BP 158/71; PULSE 73; RESP 18; TEMP 36.4; O2SAT 92
--- NOTE | 2024-12-30 16:10 | ED.HEATRA ---
HPI - Head Injury General Chief complaint: Wound/Laceration <Jamila Rushing PA-C - Last Filed: 01/02/25 12:25> Stated complaint: rolled out of bed, head injury <Jamila Rushing PA-C - Last Filed: 01/02/25 12:25> Time Seen by Provider: 12/30/24 16:10 <Jamila Rushing PA-C - Last Filed: 01/02/25 12:25> Focused HPI: This is a 79 year old male that presents to the ER for head injury. Reports he rolled out of bed accidentally. Hit his head. Denies loss of consciousness. Denies any other injuries or focal areas of pain. GENERAL: Elderly, well-nourished, and in no acute distress. HEAD: Normocephalic. Laceration on the right cheek CHEST: Clear to auscultation. ?No respiratory distress. HEART: Regular rate and rhythm.? NEURO: ?Alert and oriented x3. Patient screened in triage and initial orders placed.? ?Additional care and disposition to be based upon?diagnostic testing and treatment. <Jamila Rushing PA-C - Last Filed: 01/02/25 12:25> Focused HPI: This is a 79 year old male that presents to the ER for head injury. Reports he rolled out of bed accidentally. Hit his head. Denies loss of consciousness. Denies any other injuries or focal areas of pain. GENERAL: Elderly, well-nourished, and in no acute distress. HEAD: Normocephalic. Laceration on the right cheek CHEST: Clear to auscultation. ?No respiratory distress. HEART: Regular rate and rhythm.? NEURO: ?Alert and oriented x3. Patient screened in triage and initial orders placed.? ?Additional care and disposition to be based upon?diagnostic testing and treatment. Agree triage assessment. Patient is denying any symptoms or any pain at this time, following all my commands and moving all 4 extremities spontaneously. <Mariola Hines MD - Last Filed: 12/30/24 19:57> Related Data Home medications: Home Medications ?Medication ?Instructions ?Recorded ?Confirmed ?Last Taken ?Type aspirin 81 mg tablet,delayed 81 mg PO DAILY 10/31/21 12/20/24 12/08/24 History release carvedilol 25 mg tablet 25 mg PO BID 10/31/21 12/21/24 12/19/24 History dulaglutide 1.5 mg/0.5 mL 1.5 mg subcut WEEKLY 10/31/21 12/21/24 12/16/24 History subcutaneous pen injector (Trulicity) insulin lispro 100 unit/mL 4 unit subcut .TIDAC 10/31/21 12/21/24 12/19/24 History subcutaneous pen loratadine 10 mg tablet (Claritin) 10 mg PO PRN 10/31/21 12/21/24 12/19/24 History amlodipine 10 mg tablet 10 mg PO DAILY 11/07/23 12/21/24 12/19/24 History insulin glargine 100 unit/mL (3 6 unit subcut DAILY 11/07/23 12/21/24 12/19/24 History mL) subcutaneous pen (Lantus Solostar U-100 Insulin) cinacalcet 90 mg PO DAILY 12/12/23 12/21/24 12/19/24 History atorvastatin 20 mg tablet 20 mg PO DAILY 12/21/24 12/21/24 12/19/24 History <Jamila Rushing PA-C - Last Filed: 01/02/25 12:25> Allergies/Adverse reactions: Allergies Allergy/AdvReac Type Severity Reaction Status Date / Time No Known Allergies Allergy Verified 12/20/24 08:13 <Jamila Rushing PA-C - Last Filed: 01/02/25 12:25> Review of Systems Review of Systems: All systems are reviewed and are negative unless stated otherwise in the HPI. <Mariola Hines MD - Last Filed: 12/30/24 19:57> [facility] Past Medical History Medical History: Medical History Sinus pause (~09/2024) Bilateral shoulder pain Obstructive sleep apnea Insulin dependent type 2 diabetes mellitus Chronic obstructive pulmonary disease Coronary artery disease Benign prostatic hyperplasia Peripheral vascular disease (~03/2023) Internal hemorrhoid, bleeding Anemia End-stage renal disease on hemodialysis History of colon polyps Environmental allergies Vitamin D deficiency Dyslipidemia Essential (primary) hypertension <Jamila Rushing PA-C - Last Filed: 01/02/25 12:25> Surgical History Surgical History: Surgical History History of cardiac pacemaker (~10/2024) due to symptomatic sinus pauses causing syncope History of hemorrhoidectomy Anorectal evaluation under anesthesia and excisional hemorrhoidectomy x3 12/14/23 SAW S/P peripheral artery angioplasty (~03/2023) status post balloon angioplasty of bilateral common and external iliac arteries status post left iliofemoral endarterectomy Arteriovenous fistula of left upper extremity (~2017) History of appendectomy (~1962) History of coronary artery bypass graft (~2013) <PAMELLA Velasco Last Filed: 01/02/25 12:25> Family History Family History: Family History Mother Diabetes mellitus Acute myocardial infarction Family history of congestive heart failure Father Hypertension <Jamila Rushing PA-C - Last Filed: 01/02/25 12:25> Social History Social History: Social History Social History: Surrogate medical decision maker: Wilian Morrissey, sibling. Code status: Full code. Caffeine- daily Smoking packs per day: 10 Smoking cigarettes per day: 200.0 Years smoked: 10 Smoking pack-years: 100.00 Smoking status: Former smoker Second hand tobacco smoke exposure: No Alcohol intake: never Drinks per week: 1 Alcohol use details: Maybe 2-3 per year Substance use: never Substance use type: does not use Do You Feel Safe in your Home?: Yes Lack of Transportation: No Lack of Food: Never True Current Housing: I Have Housing Concerned About Future Housing: No Difficulty Paying Gas/Electric Bills: No Difficulty Paying for Meds: No Currently Unemployed: No Education: Associate Degree Difficulty w/ Childcare or Family Care: No Living arrangements: with family Occupation/Education: retired Additional occupation/education comments: Retired from the [employer]. Spiritual care concerns: No Agree to blood products: Yes <PAMELLA Velasco Last Filed: 01/02/25 12:25> Exam Narrative: General: Alert, awake, afebrile, in no acute distress. HEENT: PERRL, no rhinorrhea, no post nasal drip, oropharynx clear, superficial abrasion below the left eye. Neck: Trachea midline, no JVD, no lymphadenopathy, no midline cervical spinal tenderness palpation. Cardiovascular: Regular rate and rhythm, no murmurs, rubs or gallops, no peripheral edema. Respiratory: Clear to auscultation bilaterally, no tachypnea, no wheezing, no rhonchi, no rubs, no respiratory distress. Abdomen: Soft, nontender, nondistended, no rebound, no guarding, no peritoneal signs. Musculoskeletal: No joint swelling or deformity, normal muscle tone. Skin: No rashes or petechia, no signs of infection. Psychiatric: Alert and oriented, normal behavior and judgment for situation. Neurological: Alert and oriented to person, place, and time. Follows all commands. No focal deficits, speech is clear and fluent. <Mariola Hines MD - Last Filed: 12/30/24 19:57> Course Vital Signs Vital signs: Vital Signs Temperature 97.5 F L 12/30/24 15:14 Pulse Rate 73 12/30/24 15:14 Respiratory Rate 18 12/30/24 15:14 Blood Pressure 158/71 H 12/30/24 15:14 Pulse Oximetry 92 12/30/24 15:14 Oxygen Delivery Room Air 12/30/24 15:14 Temperature 97.5 F L 12/30/24 15:14 Pulse Rate 76 12/30/24 20:04 Respiratory Rate 16 12/30/24 20:04 Blood Pressure 137/76 12/30/24 20:04 Pulse Oximetry 98 12/30/24 20:04 Oxygen Delivery Room Air 12/30/24 15:14 <Jamila Rushing PA-C - Last Filed: 01/02/25 12:25> Vital Signs Temperature 97.5 F L 12/30/24 15:14 Pulse Rate 73 12/30/24 15:14 Respiratory Rate 18 12/30/24 15:14 Blood Pressure 158/71 H 12/30/24 15:14 Pulse Oximetry 92 12/30/24 15:14 Oxygen Delivery Room Air 12/30/24 15:14 Temperature 97.5 F L 12/30/24 15:14 Pulse Rate 76 12/30/24 20:04 Respiratory Rate 16 12/30/24 20:04 Blood Pressure 137/76 12/30/24 20:04 Pulse Oximetry 98 12/30/24 20:04 Oxygen Delivery Room Air 12/30/24 15:14 <Mariola Hines MD - Last Filed: 12/30/24 19:57> MDM - Head Injury MDM Narrative Medical decision making narrative: The patient was evaluated by myself in the emergency department. History is obtained from patient who is an independent historian and physical exam was performed. External medical records were reviewed at this time. Patient's tetanus was updated today. Imaging studies obtained included CT facial bones, brain, C-spine without IV contrast which was independently interpreted by me revealing: IMPRESSION: Bifid C1 anteriorly and posteriorly. Possibility of fracture is less likely. Compression fracture of C4 and C5 most likely chronic. Follow-up advised. Multilevel facet joint disease and uncovertebral joint osteoarthritic changes. Bilateral carotid calcifications. No acute intracranial hemorrhage or suspicious mass effect. Inflammatory sinus disease. Patient was informed of these findings at bedside informed that he will need to follow-up with a spinal specialist/neurosurgery regarding his chronic fractures and that he will be provided with a doctor to follow up with. These chronic compression fractures were seen on previous x-rays of the cervical spine. Patient is denying any neck pain at this time. Differential diagnosis considerations include fractures, dislocations, intracranial hemorrhage. Comorbidities impacting this visit include none. I have evaluated and discussed social determinants of health with the patient that could potentially impact subsequent diagnosis and treatment plans. On repeat assessment of the patient, reevaluation revealed that the patient is doing well and is in no acute distress. Patient symptoms have improved since he arrived to our emergency department. Repeat vital signs were all reviewed and noted to be stable. Differential diagnosis and treatment plan were discussed with the patient at bedside. Patient agrees with discussion and after shared medical decision making agrees with discharge. All questions were answered to the patient's satisfaction. Patient will follow up with PCP/ neurosurgery regarding his chronic cervical spinal compression fractures in 3-5 days. Patient was provided with strict return precautions and instructed to return to the emergency department if any new or worsening symptoms develop. The patient was discharged in stable condition. <Mariola Hines MD - Last Filed: 12/30/24 19:57> Imaging Data Radiologist's impression: ITS Impressions Head CT 12/30/24 16:07 Impression: No acute intracranial hemorrhage or suspicious mass effect. Inflammatory sinus disease. Head/Cervical Spine/Facial Bones CT 12/30/24 16:09 IMPRESSION: No facial fracture. Bilateral maxillary and ethmoid sinus disease. CT facial & cervical spine wo Ordering provider: Jamila Rushing PA-C History: . fall, head injury . Comparison: None. Technique: CT of the cervical spine was performed without contrast. Sagittal and coronal reformatted images were also obtained and reviewed. Automated exposure control and iterative reconstruction technique were employed. The dose-length product was 421.47 mGy-cm. 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 Fracture is less likely. Follow-up advised. Compression fracture is seen in C4 and C5 is most likely chronic. Reversal of lordosis with kyphosis centered at the level of C4. No subluxation. The occipital condyles are intact. DISC SPACES: Narrowing of the disc C3-C4, C4-C5, C5-C6 and C6-C7. Multilevel facet joint disease. Multilevel uncovertebral joint osteoarthritic changes. Multilevel intervertebral foraminal narrowing. PARASPINOUS SOFT TISSUES: Bilateral carotid calcifications. IMPRESSION: Bifid C1 anteriorly and posteriorly. Possibility of fracture is less likely. Compression fracture of C4 and C5 most likely chronic. Follow-up advised. Multilevel facet joint disease and uncovertebral joint osteoarthritic changes. Bilateral carotid calcifications. <Jamila Rushing PA-C - Last Filed: 01/02/25 12:25> Critical Care Time Critical Care Time Critical Care Time: No <Jamila Rushing PA-C - Last Filed: 01/02/25 12:25> Discharge Plan Discharge Clinical Impression: Fall from ground level Head injury Qualifiers: Encounter type: initial encounter Qualified Code(s): S09.90XA - Unspecified injury of head, initial encounter <Jamila Rushing PA-C - Last Filed: 01/02/25 12:25> Patient Disposition: [facility] <Jamila Rushing PA-C - Last Filed: 01/02/25 12:25> Condition: Improved <Jamila Rushing PA-C - Last Filed: 01/02/25 12:25> Instructions: Fall Prevention for Older Adults (ED), Head Injury (DC) <Jamila Rusihng PA-C - Last Filed: 01/02/25 12:25> Additional Instructions: Please follow-up with your family doctor within the next 3-5 days. Return to the ED if any new or worsening symptoms develop. Your tetanus was updated today. Your CT cervical spine revealed chronic fractures of your C4-C5 vertebra any need to follow-up with an Orthopedic Spine or Neurosurgery regarding Jose's findings. Return to the ED if any new or worsening symptoms develop. <Jamila Rushing PA-C - Last Filed: 01/02/25 12:25> Patient Language: Mauritanian <Jamila Rushing PA-C - Last Filed: 01/02/25 12:25> Prescriptions: No Action carvedilol 25 mg tablet 25 mg PO BID aspirin 81 mg tablet,delayed release (DR/EC) 81 mg PO DAILY Trulicity 1.5 mg/0.5 mL pen injector 1.5 mg subcut WEEKLY Rx Instructions: takes on Tuesdays insulin lispro 100 unit/mL insulin pen 4 unit subcut .TIDAC loratadine [Claritin] 10 mg tablet 10 mg PO PRN insulin glargine [Lantus Solostar U-100 Insulin] 100 unit/mL (3 mL) insulin pen 6 unit subcut DAILY cyclobenzaprine 10 mg tablet 10 mg PO TID PRN (Reason: muscle spasm) Qty: 30 0RF amlodipine 10 mg tablet 10 mg PO DAILY atorvastatin 20 mg tablet 20 mg PO DAILY tamsulosin 0.4 mg Capsule 0.4 mg PO QHS Qty: 30 0RF sevelamer carbonate 0.8 gram Powder In Packet 3.2 g PO TIDWM 30 Days Qty: 60 0RF furosemide 80 mg Tablet 80 mg PO BID Qty: 60 0RF finasteride [Proscar] 5 mg Tablet 5 mg PO QAM Qty: 30 0RF cinacalcet 90 mg PO DAILY <Jamila Rushing PA-C - Last Filed: 01/02/25 12:25> Follow-up/Referrals: Radha Carrion MD [Primary Care Provider] - 3 Days Matt Miranda MD [Physician] - 1 Week <Jamila Rushing PA-C - Last Filed: 01/02/25 12:25> Time of Disposition: 19:51 <Jamila Rushing PA-C - Last Filed: 01/02/25 12:25> 19:51 <Mariola Hines MD - Last Filed: 12/30/24 19:57>
--- OUTSIDE RECORDS SUMMARY | 2024-12-30 16:53 | XMS_ITS | Encounter Summary ---
Author Organization [facility] Address [address] [place] [address] Care Team Providers Care Home Support Worker Name Role Phone Mariza Carrion MD Primary Care Provider Encounter Details Date Type Department Care Team (Late Contact Info) Description 06/03/2018 [facility] Outpatient Visit [facility] [address] [place] [address] [place] [id number] [facility] [address] [place] [id number] Social History Tobacco Use Types Packs/Day [...] Info) Description 03/23/2025 8:00 AM CDT Appointment [facility] [address] [facility], [address] [place], [place] [id number] [place] [id number] [facility] [address] [place] [phone] documented as of this encounter Visit Diagnoses Not on filedocumented in this encounter Care Teams Home Support Worker Relationship Specialty Start Date End Date Mariza Carrion MD [address] [place] [id number] PCP - General Family Medicine 08/26/18 documented as of this encounter
--- OUTSIDE RECORDS SUMMARY | 2024-12-30 16:53 | XMS_ITS ---
Author Organization [facility] Address [facility] [place] [address] Care Team Providers Care Field Health Officer Name Role Phone Efren Hoyos MD Unavailable Dank Hicks MD Unavailable [phone] Mariza Carrion MD Primary Care Provider Dialysis Access Sites Type Status Location Placement Date Removal Da te AV fistula Active Left Upper Arm - Anterior AV fistula Inactive 10/23/2024 Procedures Procedure Name Priority Date/Time Associated Diagnosis Comments CARDIOLOGY DOCUMENT SCAN Routine 12/10/2024 10:59 AM TEST LAB TECHNICIAN POCT GLUCOSE Routine 11/24/2024 10:01 AM TEST LAB TECHNICIAN Type 2 diabetes mellitus with hyperglycemia, with long-term current use of insulin ([facility]) POCT HEMOGLOBIN A1C Routine 11/24/2024 1 0:01 AM TEST LAB TECHNICIAN Type 2 diabetes mellitus with hyperglycemia, with long-term current use of insulin ([facility]) DEVICE CHECK - IN OFFICE Routine 11/05/2024 1:22 PM TEST LAB TECHNICIAN Cardiac pacemaker in situ Asystole (HCC) Syncope and collapse Symptomatic bradycardia POCT GLUCOSE DEVICE Routine 10/25/2024 1 2:56 PM TEST LAB TECHNICIAN POCT GLUCOSE DEVICE Routine 10/25/2024 8 :10 AM TEST LAB TECHNICIAN POCT GLUCOSE DEVICE Routine 10/25/2024 7 :43 AM TEST LAB TECHNICIAN EGFR Routine 10/25/2024 5:48 AM TEST LAB TECHNICIAN BASIC METABOLIC PANEL Routine 10/25/2024 5:48 AM TEST LAB TECHNICIAN CBC WITHOUT DIFFERENTIAL Routine 10/25/2024 5:48 AM TEST LAB TECHNICIAN POCT GLUCOSE DEVICE Routine 10/25/2024 2 :25 AM TEST LAB TECHNICIAN POCT GLUCOSE DEVICE Routine 10/24/2024 8 :31 PM TEST LAB TECHNICIAN POCT GLUCOSE DEVICE Routine 10/24/2024 4 :33 PM TEST LAB TECHNICIAN POCT GLUCOSE DEVICE Routine 10/24/2024 2 :03 PM TEST LAB TECHNICIAN LEADLESS, SINGLE CHAMBER PACEMAKER (PPM) INSERTION Routine 10/24/2024 1:36 PM TEST LAB TECHNICIAN Syncope and collapse POCT GLUCOSE DEVICE Routine 10/24/2024 1 1:26 AM TEST LAB TECHNICIAN POCT GLUCOSE DEVICE Routine 10/24/2024 7 :30 AM TEST LAB TECHNICIAN TSH Routine 10/24/2024 5:12 AM TEST LAB TECHNICIAN EGFR Routine 10/24/2024 4:59 AM TEST LAB TECHNICIAN BASIC METABOLIC PANEL Routine 10/24/2024 4:59 AM TEST LAB TECHNICIAN CBC WITHOUT DIFFERENTIAL Routine 10/24/2024 4:59 AM TEST LAB TECHNICIAN POCT GLUCOSE DEVICE Routine 10/24/2024 2 :39 AM TEST LAB TECHNICIAN POCT GLUCOSE DEVICE Routine 10/23/2024 1 0:25 PM TEST LAB TECHNICIAN POCT GLUCOSE DEVICE Routine 10/23/2024 8 :04 PM TEST LAB TECHNICIAN POCT GLUCOSE DEVICE Routine 10/23/2024 5 :42 PM TEST LAB TECHNICIAN HEPATITIS B SURFACE ANTIBODY (IMMUNE STATUS) Routine 10/23/2024 2:45 PM TEST LAB TECHNICIAN HEPATITIS PANEL, ACUTE Routine 10/23/2024 2:45 PM TEST LAB TECHNICIAN POCT GLUCOSE DEVICE Routine 10/23/2024 1 2:57 PM TEST LAB TECHNICIAN HEMODIALYSIS Routine 10/23/2024 9:13 AM TEST LAB TECHNICIAN POCT GLUCOSE DEVICE Routine 10/23/2024 7 :47 AM TEST LAB TECHNICIAN EGFR Routine 10/23/2024 5:27 AM TEST LAB TECHNICIAN DIFFERENTIAL AUTO Routine 10/23/2024 5:2 7 AM TEST LAB TECHNICIAN MAGNESIUM Routine 10/23/2024 5:27 AM TEST LAB TECHNICIAN PHOSPHORUS Routine 10/23/2024 5:27 AM TEST LAB TECHNICIAN COMPREHENSIVE METABOLIC PANEL Routine 10/23/2024 5:27 AM TEST LAB TECHNICIAN CBC WITH AUTO DIFFERENTIAL Routine 10/23/2024 5:27 AM TEST LAB TECHNICIAN POCT GLUCOSE DEVICE Routine 10/23/2024 3 :04 AM TEST LAB TECHNICIAN POCT GLUCOSE DEVICE Routine 10/22/2024 1 0:42 PM TEST LAB TECHNICIAN POCT GLUCOSE DEVICE Routine 10/22/2024 8 :42 PM TEST LAB TECHNICIAN HM DIABETES EYE EXAM Routine 08/13/2024 9:40 [...] Read Routine (OP Routine) 12/05/2021 11:53 AM TEST LAB TECHNICIAN End stage renal disease (HCC) from Last 3 Months or Most [...] hyperglycemia, with long-term current use of insulin ([facility]) Use to test glucose 5 times daily 450 each 2 04/03/20 18 Active lancets (freestyle) 28 gauge miscIndications:T ype 2 diabetes mellitus with hyperglycemia, with long-term current use of insulin ([facility]) Use to test glucose 5 [...] hyperglycemia, with long-term current use of insulin ([facility]) Change sensor every 14 days [...] hyperglycemia, with long-term current use of insulin ([facility]) Use pads 5 times daily [...] hyperglycemia, with long-term current use of insulin ([facility]) Inject 0.5ML(1.5MG total) under the [...] hyperglycemia, with long-term current use of insulin ([facility]) Use to inject insulin 4x/day 350 each 3 11/24/19 25 Active insulin lispro (HumaLOG) 100 unit/mL pen for injectionIndicati ons:type 2 diabetes mellitus Inject 2-6 Units under the skin 3 (three) times a day 30 mL 2 11/25/19 25 026 Active Active Problems Problem Noted Date Diagnosed Date Cardiac pacemaker in situ 11/04/2024 Overview (11/04/2024): Medtronic Micra AV2 Pacemaker. Dx; Symptomatic Bradycardia, Sinus Arrest, Syncope. DOI 10/24/2024-Ramadan. Patricia. Carelink remote. Glaucoma 10/23/2024 Benign prostatic hyperplasia without lower urinary tract symptoms 10/23/2024 Asystole 10/23/2024 Syncope and collapse 10/22/2024 ESRD on hemodialysis 12/09/2019 Assessment & Plan (09/03/2023 9:28 AM TEST LAB TECHNICIAN): Chronic problem. [facility] [place]: //Saturdays. LUE fistula. Assessment & Plan (03/05/2023 9:59 AM CDT): Chronic problem. [facility] in [place]: //Saturdays. LUE fistula. ESRD on dialysis 05/22/2019 Hyperlipidemia associated with type 2 diabetes fouzia victoria 05/22/2019 Assessment & Plan (11/24/2024 10:10 AM TEST LAB TECHNICIAN): Chronic problem. Controlled on current Atorvastatin 20mg. Last lipid panel: 03/03/24 LDL=33, TG=75. Assessment & Plan (03/03/2024 8:45 AM CDT): Chronic problem. Controlled on current Atorvastatin 20mg. Last lipid panel: 03/05/23 LDL=57, SR=502. Will update labs today. Does not mychart. Verified phone #/address to contact re: results. Assessment & Plan (09/03/2023 9:28 AM TEST LAB TECHNICIAN): Chronic problem. Controlled on current Atorvastatin 20mg. Last lipid panel: 03/05/23 LDL=57, XC=084. Assessment & Plan (03/05/2023 9:53 AM CDT): Chronic problem. Controlled on current Atorvastatin 20mg. Last lipid panel: 12/05/21 LDL=36, TU=394. Will update labs today. Verified phone #/address to contact re: results. Assessment & Plan (11/02/2022 2:47 PM TEST LAB TECHNICIAN): Chronic, well controlled Low fat Low cholesterol [...] Lipitor Assessment & Plan (09/07/2020 2:26 PM TEST LAB TECHNICIAN): Goal of treatment , LDL cholesterol less [...] panel Assessment & Plan (12/09/2019 2:03 PM TEST LAB TECHNICIAN): Very high TG Add Johncepa Assessment & [...] statin therapy Coronary artery disease invo lving [place] coronary artery of [place] heart without angina pectoris 10/04/2017 Hx of CABG 10/04/2017 Class 2 severe obesity due t o excess calories with serious comorbidity and body mass index (BMI) of 38.0 to 38.9 in adult 05/22/2017 Assessment & Plan (10/24/2018 12:58 PM TEST LAB TECHNICIAN): Making progress with diet efforts. Continue Assessment & Plan (02/08/2018 11:01 AM CDT): Importance of following diet and exercising discussed. Hypertension associated with diabetes 05/22/2017 Assessment & Plan (11/24/2024 10:11 AM TEST LAB TECHNICIAN): Chronic problem. Controlled on current losartan 100mg daily, amlodipine 10mg daily Assessment & Plan (03/03/2024 8:45 AM CDT): Chronic problem. BP elevated upon arrival. Controlled on current Carvedilol 25mg bid, losartan 100mg daily. No changes at this time. Will update labs today. Does not mychart. Verified phone #/address to contact re: results. Assessment & Plan (09/03/2023 9:28 AM TEST LAB TECHNICIAN): Chronic problem. BP elevated upon arrival. Controlled [...] renal Assessment & Plan (10/24/2018 12:57 PM TEST LAB TECHNICIAN): Controlled. Continue current medication plan and follow up with cardiology Assessment & Plan (06/18/2018 2:30 PM CDT): BP controlled on current medication plan. Continue follow up with nephrology Assessment & Plan (02/08/2018 11:00 AM CDT): Continue same medication Assessment & Plan (12/11/2017 10:24 AM TEST LAB TECHNICIAN): Goal blood pressure is less than 140/85 [...] mellitus Assessment & Plan (11/24/2024 10:16 AM TEST LAB TECHNICIAN): Chronic problem, controlled on current regimen. A1c [...] daily for skin breakdown and infection (sees audio tape librarian regularly). Assessment & Plan (03/03/2024 9:19 AM [...] daily for skin breakdown and infection (sees audio tape librarian regularly). Assessment & Plan (09/03/2023 9:27 AM TEST LAB TECHNICIAN): Chronic problem, controlled on current regimen. A1c [...] daily for skin breakdown and infection (sees audio tape librarian regularly). Assessment & Plan (03/05/2023 10:13 AM CDT): Chronic problem, controlled on current regimen. Current medications: Trulicity 1.5mg weekly Lantus 6 units every morning Humalog 4 units before meals For sugars over 160: take 6 units For sugars over 200: take 8 units Seen by [facility] every 4-5 mos; letter sent to get [...] daily for skin breakdown and infection (sees audio tape librarian regularly). Will update labs today. Verified phone #/address to contact re: results. Assessment & Plan (11/02/2022 2:43 PM TEST LAB TECHNICIAN): Well controlled, with risk of hypoglycemia Insuli [...] Ross Assessment & Plan (09/07/2020 2:26 PM TEST LAB TECHNICIAN): Hba1c was Lab Results Component Value Date [...] Trulicity. Assessment & Plan (12/09/2019 2:03 PM TEST LAB TECHNICIAN): Your Hba1c today was: Lab Results Component Value Date HGBA1C 9.3 12/09/2019 meaning a 3 month average sugar of : 224 Your goal hba1c is under 7.0 to prevent intermediate diabetes complications ( eye , kidney and [...] hypoglycemia. Assessment & Plan (10/24/2018 1:00 PM TEST LAB TECHNICIAN): Stable BG pattern 100-140 reported since last adjustment to plan. No change today. BG goals reviewed. Advised to lower Lantus by 2 units if FBG are < 100 x 2 days/wk. For planned activity, reduce Humalog dose by 1/2 at preceding meal. Assessment & Plan (09/19/2018 11:11 AM TEST LAB TECHNICIAN): Your Hba1c today was: Lab Results Component Value Date HGBA1C 5.1 09/19/2018 meaning a 3 month average sugar of : 81 Your goal hba1c is under 7.0 to prevent intermediate diabetes complications ( eye , kidney and [...] time. Assessment & Plan (12/11/2017 10:47 AM TEST LAB TECHNICIAN): Hba1c was .5.4 Today, 1800 calorie, consistent [...] drink = 0.6 oz pur e alcohol) [facility] Utilities Answer Date Recorded In the past 12 months has [employer], [employer], or water Prevently threatened to shut off services in your [...] 10/23/2024 How often do you attend chur or latter-day services? Never 10/23/2024 Do you belong to any clubs o r organizations such as denominational groups, unions, fraternal or athletic groups, or [...] any time in the past 12 m [facility], were you homeless or living in a fdc (including now)? No 10/23/2024 Personal Safety Answer Date Recorded Have you ever been in or are you currently in a harmful physical or emotional relationship or is someone making you feel afraid or unsafe? Denies 10/22/2024 Sex and Gender Information Value Date Recorded Sex Assigned at Not on file Legal Sex Male 7:27 PM TEST LAB TECHNICIAN Gender Identity Not on file Sexual Orientation Not on file Last Filed Vital Signs Vital Sign Reading Time Taken Comments Blood Pressure 102/58 11/24/2024 9:58 AM TEST LAB TECHNICIAN Pulse 75 11/24/2024 9:58 AM TEST LAB TECHNICIAN Temperature 36.3 C (97.3 F) 10/25/2024 2:15 PM TEST LAB TECHNICIAN Respiratory Rate 20 11/24/2024 9:58 AM TEST LAB TECHNICIAN Oxygen Saturation 100% 10/25/2024 1:15 PM TEST LAB TECHNICIAN Inhaled Oxygen Concentration - - Weight 91.3 kg (201 lb 4.5 oz) 10/22/2024 8:29 P M TEST LAB TECHNICIAN Height 170.2 cm (5' 7.01 ) 11/24/2024 9:58 AM CS T Body Mass Index 31.52 10/22/2024 8:29 PM TEST LAB TECHNICIAN Results * Cardiology Document Scan (12/10/2024 10:59 AM TEST LAB TECHNICIAN) Anatomical Region Laterality Modality Other us Curt Grady MD [facility] PRO CEDURES Final Result * POCT hemoglobin A1c (11/24/2024 10:01 AM TEST LAB TECHNICIAN) Hemoglobin A1C, POC 4.9 4.0 - 5.6 % Blood 11/24/2024 10:0 1 AM TEST LAB TECHNICIAN us Berthageno Pinto FLAT POLISHER POINT OF CARE TEST ORDERA BLES Final Result * (ABNORMAL) POCT glucose (11/24/2024 10:01 AM TEST LAB TECHNICIAN) Glucose Blood, POC 131 mg/dL Blood 11/24/2024 10:0 1 AM TEST LAB TECHNICIAN us Berthageno Pinto [employer] POINT OF CARE TEST ORDERA BLES Final Result * DEVICE CHECK - IN OFFICE (11/05/2024 1:22 PM TEST LAB TECHNICIAN) Anatomical Region Laterality Modality Other Narrative 11/13/2024 2:43 PM TEST LAB TECHNICIAN Medtronic Micra AV2 Pacemaker. Dx; Symptomatic Bradycardia, [...] pacemaker f/u 6-8 weeks. Carelink remote. Yamel Cesar RN Dank Hicks MD CV CARDIAC SERVICES PROC EDURES Final Result * POCT glucose (10/25/2024 12:56 PM TEST LAB TECHNICIAN) Glucose, POC 74 70 - 199 mg/dL Blood 10/25/2024 12:5 6 PM TEST LAB TECHNICIAN 10/25/2024 12:56 PM TEST LAB TECHNICIAN Result [facility] Richard Paez [facility] POCT ORDERABLES - DEVICE Final Result Performing Organization Address [facility] de Phone Number [facility] [address] [place] [address] * POCT glucose (10/25/2024 8:10 AM TEST LAB TECHNICIAN) Glucose, POC 100 70 - 199 mg/dL Blood 10/25/2024 8:10 AM TEST LAB TECHNICIAN 10/25/2024 8:10 AM TEST LAB TECHNICIAN Nabeel Paez [facility] POCT ORDERABLES - DEVICE Final Result Performing Organization Address [facility] Co de Phone [place] [facility] [address] [place] [address] * POCT glucose (10/25/2024 7:43 AM TEST LAB TECHNICIAN) Glucose, POC 78 70 - 199 mg/dL Blood 10/25/2024 7:43 AM TEST LAB TECHNICIAN 10/25/2024 7:43 AM TEST LAB TECHNICIAN Nabeel Paez DO LAB POCT ORDERABLES - DEVICE Final Result Performing Organization Address [facility] Co de Phone Number [facility] [address] Department [place] [address] * (ABNORMAL) eGFR (10/25/2024 5:48 AM TEST LAB TECHNICIAN) eGFR 9(L) >=60 mL/min/1. 73 m2 Comment: [...] last reviewed 2021. Blood 10/25/2024 5:48 AM TEST LAB TECHNICIAN 10/25/2024 6:03 AM TEST LAB TECHNICIAN Raisa Scherer [employer] LAB BLOOD ORDERABLES Jeaneth l Result Performing Organization Address City/[facility]/ZIP Co de Phone Number N[facility] [place] [address] Department of Laboratories [place], [place] [id number] * (ABNORMAL) CBC without differential (10/25/2024 5:48 AM TEST LAB TECHNICIAN) WBC 4.6 3.8 - 9.9 K/cumm Hgb 8.3(L) 13.0 - 17.5 g/dL [facility] Hct 28.1(L) 38.9 - 50.3 % [facility] Plt 187 150 - 400 K/cumm [facility] MPV 10.6 9.1 - 12.3 fL [facility] RBC 2.82(L) 4.30 - 5.80 M/cumm [facility] MCV 99.6(H) 81.3 - 96.4 fL [facility] MCH 29.4 27.1 - 33.3 pg [facility] MCHC 29.5(L) 32.3 - 35.7 g/dL [facility] RDW CV 16.3(H) 11.1 - 14.9 % [facility] RDW SD 60.4(H) 35.7 - 48.1 fL [facility] NRBC abs 0.00 0.00 - 0.01 K/cumm [facility] Blood 10/25/2024 5:48 AM TEST LAB TECHNICIAN 10/25/2024 6:03 AM TEST LAB TECHNICIAN us Raisa Scherer NP LAB BLOOD ORDERABLES Jeaneth l Result [facility] [address] Department [place] [address] * (ABNORMAL) Basic metabolic panel (10/25/2024 5:48 AM TEST LAB TECHNICIAN) Sodium 135 135 - 145 mmol/L Potassium, pl 4.3 3.3 - 4.9 mmol/L [facility] Chloride 93(L) 97 - 110 mmol/L [facility] CO2 27 22 - 32 mmol/L [facility] Anion gap 15 2 - 15 mmol/L [facility] BUN 30(H) 6 - 25 mg/dL [facility] Creatinine 5.94(H) 0.80 - 1.30 mg/dL [facility] Glucose 76 70 - 199 mg/dL [facility] Comment: Interpretive Data Fasting [...] 2022. Calcium 8.8 8.5 - 10.3 mg/dL [facility] Blood 10/25/2024 5:48 AM TEST LAB TECHNICIAN 10/25/2024 6:03 AM TEST LAB TECHNICIAN Raisa Scherer [employer] LAB BLOOD ORDERABLES Jeaneth l Result Performing Organization Address [facility] Co de Phone Number ALYSSAALANNAH [address] [facility] [place] [address] * POCT glucose (10/25/2024 2:25 AM TEST LAB TECHNICIAN) Glucose, POC 81 70 - 199 mg/dL Blood 10/25/2024 2:25 AM TEST LAB TECHNICIAN 10/25/2024 2:25 AM TEST LAB TECHNICIAN Nabeel Paez DO [facility] POCT ORDERABLES - DEVICE Final Result Performing Organization Address [facility] de Phone Number [facility] [address] [facility] [place] [address] * POCT glucose (10/24/2024 8:31 PM TEST LAB TECHNICIAN) Glucose, POC 120 70 - 199 mg/dL Blood 10/24/2024 8:31 PM TEST LAB TECHNICIAN 10/24/2024 8:31 PM TEST LAB TECHNICIAN Nabeel Paez DO [facility] POCT ORDERABLES - DEVICE Final Result Performing Organization Address [facility] Co de Phone Number [facility] [address] [facility] [place] [address] * POCT glucose (10/24/2024 4:33 PM TEST LAB TECHNICIAN) Glucose, POC 85 70 - 199 mg/dL Blood 10/24/2024 4:33 PM TEST LAB TECHNICIAN 10/24/2024 4:33 PM TEST LAB TECHNICIAN Nabeel Paez LAB POCT ORDERABLES - DEVICE Final Result Performing Organization Address City/[facility]/ZIP Co de Phone Number [place] [address] [facility] [place] [address] * POCT glucose (10/24/2024 2:03 PM TEST LAB TECHNICIAN) Glucose, POC 83 70 - 199 mg/dL Blood 10/24/2024 2:03 PM TEST LAB TECHNICIAN 10/24/2024 2:03 PM TEST LAB TECHNICIAN [facility] POCT ORDERABLES - DEVICE Final Result Performing Organization Address [facility] Co de Phone Number ALYSSAALANNAH [place] [address] [facility] [place] [address] * POCT glucose (10/24/2024 11:26 AM TEST LAB TECHNICIAN) Glucose, POC 85 70 - 199 mg/dL Blood 10/24/2024 11:2 6 AM TEST LAB TECHNICIAN 10/24/2024 11:26 AM TEST LAB TECHNICIAN Nabeel Paez [facility] POCT ORDERABLES - DEVICE Final Result Performing Organization Address [facility] Co de Phone Number ALYSSAALANNAH [place] [address] [facility] [place] [address] * POCT glucose (10/24/2024 7:30 AM TEST LAB TECHNICIAN) Glucose, POC 94 70 - 199 mg/dL Blood 10/24/2024 7:30 AM TEST LAB TECHNICIAN 10/24/2024 7:30 AM TEST LAB TECHNICIAN Nabeel Paez LAB POCT ORDERABLES - DEVICE Final Result Performing Organization Address City/[facility] [place] [address] [facility] [place] [address] * TSH (10/24/2024 5:12 AM TEST LAB TECHNICIAN) Thyroid Stimulating Hormone 0.48 0.30 - 4.20 mcIUnit/mL Blood 10/24/2024 5:12 AM TEST LAB TECHNICIAN 10/24/2024 5:23 AM TEST LAB TECHNICIAN Sherrill Christianson MD LAB BLOOD ORDERABLES Final Result Performing Organization Address [facility] Co de Phone Number [facility] [place] [address] [place] [address] * (ABNORMAL) eGFR (10/24/2024 4:59 AM TEST LAB TECHNICIAN) eGFR 13(L) >=60 mL/min/1. 73 m2 Comment: [...] last reviewed 2021. Blood 10/24/2024 4:59 AM TEST LAB TECHNICIAN 10/24/2024 5:23 AM TEST LAB TECHNICIAN us Raisa Scherer NP LAB BLOOD ORDERABLES Jeaneth l Result Performing Organization Address City/[facility]/ZIP Co de Phone Number [place] [address] [place] [address] * (ABNORMAL) CBC without differential (10/24/2024 4:59 AM TEST LAB TECHNICIAN) WBC 5.1 3.8 - 9.9 K/cumm Hgb 8.9(L) 13.0 - 17.5 g/dL [facility] Hct 29.9(L) 38.9 - 50.3 % [facility] Plt 188 150 - 400 K/cumm [facility] MPV 10.2 9.1 - 12.3 fL [facility] RBC 2.93(L) 4.30 - 5.80 M/cumm [facility] MCV 102.0(H) 81.3 - 96.4 fL [facility] MCH 30.4 27.1 - 33.3 pg [facility] MCHC 29.8(L) 32.3 - 35.7 g/dL [facility] RDW CV 16.8(H) 11.1 - 14.9 % [facility] RDW SD 62.6(H) 35.7 - 48.1 fL [facility] NRBC abs 0.00 0.00 - 0.01 K/cumm [facility] Blood 10/24/2024 4:59 AM TEST LAB TECHNICIAN 10/24/2024 5:20 AM TEST LAB TECHNICIAN us Raisa Scherer [employer] LAB BLOOD ORDERABLES Jeaneth mari Result [facility] [address] Department [place] [address] * (ABNORMAL) Basic metabolic panel (10/24/2024 4:59 AM TEST LAB TECHNICIAN) Sodium 136 135 - 145 mmol/L Potassium, pl 4.2 3.3 - 4.9 mmol/L [facility] Chlor[facility] 94(L) 97 - 110 mmol/L [facility] CO2 31 22 - 32 mmol/L [facility] Anion gap 11 2 - 15 mmol/L [facility] BUN 20 6 - 25 mg/dL [facility] Creatinine 4.30(H) 0.80 - 1.30 mg/dL [facility] Glucose 80 70 - 199 mg/dL [facility] Comment: [...] 2022. Calcium 9.1 8.5 - 10.3 mg/dL [facility] Blood 10/24/2024 4:59 AM TEST LAB TECHNICIAN 10/24/2024 5:20 AM TEST LAB TECHNICIAN Raisa Scherer [employer] LAB BLOOD ORDERABLES Jeaneth l Result Performing Organization Address [facility]/ZIP Co de Phone Number ALYSSAALANNAH [address] [facility] [address] [place], [place] [address] * POCT glucose (10/24/2024 2:39 AM TEST LAB TECHNICIAN) Glucose, POC 123 70 - 199 mg/dL Blood 10/24/2024 2:39 AM TEST LAB TECHNICIAN 10/24/2024 2:39 AM TEST LAB TECHNICIAN Nabeel Paez DO [facility] POCT ORDERABLES - DEVICE Final Result Performing Organization Address [facility] Co de Phone Number ALYSSAALANNAH [address] [facility] [place] [address] * POCT glucose (10/23/2024 10:25 PM TEST LAB TECHNICIAN) Glucose, POC 173 70 - 199 mg/dL Blood 10/23/2024 10:2 5 PM TEST LAB TECHNICIAN 10/23/2024 10:25 PM TEST LAB TECHNICIAN Nabeel Paez DO [facility] POCT ORDERABLES - DEVICE Final Result Performing Organization Address [facility] Co de Phone Number NIDIA [address] [facility] [place] [address] * POCT glucose (10/23/2024 8:04 PM TEST LAB TECHNICIAN) Glucose, POC 70 70 - 199 mg/dL Blood 10/23/2024 8:04 PM TEST LAB TECHNICIAN 10/23/2024 8:04 PM TEST LAB TECHNICIAN Nabeel Paez LAB POCT ORDERABLES - DEVICE Final Result Performing Organization Address City/[facility] Co de Phone Number [place] [address] [place] [address] * POCT glucose (10/23/2024 5:42 PM TEST LAB TECHNICIAN) Pathologist [facility] Glucose, POC 90 70 - 199 mg/dL Blood 10/23/2024 5:42 PM TEST LAB TECHNICIAN 10/23/2024 5:42 PM TEST LAB TECHNICIAN Nabeel Paez [facility] POCT ORDERABLES - DEVICE Final Result Performing Organization Address [facility] de Phone Number [place] [address] [place] [address] * Hepatitis panel, acute Blood (10/23/2024 2:45 PM TEST LAB TECHNICIAN) [facility] Hep A IgM Nonreactive Nonreactive Comment: Interpretive Data: If Hep A IgM Ab is reported as Equivocal, a new sample should be drawn in two weeks for testing. Current interpretive data was last revised on 20. Hep B core IgM Nonreactive Nonreactive [facility] Comment: Interpretive Data If HepB Core IgM Ab is reported as Equivocal, a new sample should be drawn in two weeks for testing. Current interpretive data was last revised on 20. Hep C Ab Nonreactive Nonreactive [facility] Comment: Interpretive Data Nonreactive: [...] last revised on 2020. HepBsAg Nonreactive Nonreactive [facility] Blood 10/23/2024 2:45 PM TEST LAB TECHNICIAN 10/23/2024 2:46 PM TEST LAB TECHNICIAN Sherrill Christianson MD LAB MICROBIOLOGY - GENERAL ORDERABLES Final Result Performing Organization Address [facility] Co de Phone Number NIDIA COTE [address] [address] [facility] [place] [address] * Hepatitis B surface antibody (immune status) Blood (10/23/2024 2:45 PM TEST LAB TECHNICIAN) HBsAb (immune status) Nonreactive Comment: Interpretive Data [...] revised on 20. Blood 10/23/2024 2:45 PM TEST LAB TECHNICIAN 10/23/2024 2:46 PM TEST LAB TECHNICIAN Sherrill Christianson MD LAB MICROBIOLOGY - GENERAL ORDERABLES Final Result Performing Organization Address [facility] Co de Phone Number NIDIA COTE [address] [place] [place] [address] * (ABNORMAL) POCT glucose (10/23/2024 12:57 PM TEST LAB TECHNICIAN) Glucose, POC 69(L) 70 - 199 mg/dL Blood 10/23/2024 12:5 7 PM TEST LAB TECHNICIAN 10/23/2024 12:57 PM TEST LAB TECHNICIAN Nabeel Paez DO LAB POCT ORDERABLES - DEVICE Final Result Performing Organization Address [facility] Co de Phone Number NIDIA COTE [address] [place] [address] * POCT glucose (10/23/2024 7:47 AM TEST LAB TECHNICIAN) Glucose, POC 81 70 - 199 mg/dL Blood 10/23/2024 7:47 AM TEST LAB TECHNICIAN 10/23/2024 7:47 AM TEST LAB TECHNICIAN Sylvester Engel MD LAB POCT ORDERABLES - DEVICE Final Result Performing Organization Address City/[facility]/ZIP Co de Phone Number ALYSSAALANNAH COTE [address] [place] [address] * (ABNORMAL) eGFR (10/23/2024 5:27 AM TEST LAB TECHNICIAN) eGFR 11(L) >=60 mL/min/1. 73 m2 Comment: [...] last reviewed 2021. Blood 10/23/2024 5:27 AM TEST LAB TECHNICIAN 10/23/2024 5:32 AM TEST LAB TECHNICIAN us Raisa Scherer NP LAB BLOOD ORDERABLES Jeaneth l Result ALYSSAALANNAH COTE [address] [place] [address] * (ABNORMAL) Differential, auto (10/23/2024 5:27 AM TEST LAB TECHNICIAN) Neutrophil abs 4.1 1.5 - 6.5 K/cumm Imm gran abs 0.1 0.0 - 0.1 K/cumm [facility] Lymphocyte abs 0.4(L) 0.8 - 3.3 K/cumm [facility] Monocyte abs 0.7 0.2 - 0.8 K/cumm [facility] Eosinophil abs 0.1 0.0 - 0.5 K/cumm [facility] Basophil abs 0.0 0.0 - 0.1 K/cumm [facility] Neutrophil pct 76.5 % [facility] Comment: Interpretive Data Percent cell count reference ranges are not reported, since discordance with absolute values may lead to misinterpretation of CBC data. Current Interpretive Data was last revised on 2018. Imm gran pct 1.1 % [facility] Comment: Interpretive Data Percent cell count reference ranges are not reported, since discordance with absolute values may lead to misinterpretation of CBC data. Current Interpretive Data was last revised on 2018. Lymphocyte pct 7.9 % [facility] Comment: Interpretive Data Percent cell count reference ranges are not reported, since discordance with absolute values may lead to misinterpretation of CBC data. Current Interpretive Data was last revised on 2018. Monocyte pct 12.7 % [facility] Comment: Interpretive Data Percent cell count reference ranges are not reported, since discordance with absolute values may lead to misinterpretation of CBC data. Current Interpretive Data was last revised on 2018. Eosinophil pct 1.1 % [facility] Comment: Interpretive Data Percent cell count reference ranges are not reported, since discordance with absolute values may lead to misinterpretation of CBC data. Current Interpretive Data was last revised on 2018. Basophil pct 0.7 % [facility] Comment: Interpretive Data Percent cell count reference ranges are not reported, since discordance with absolute values may lead to misinterpretation of CBC data. Current Interpretive Data was last revised on 2018. Blood 10/23/2024 5:27 AM TEST LAB TECHNICIAN 10/23/2024 5:30 AM TEST LAB TECHNICIAN us Raisa Scherer NP LAB BLOOD ORDERABLES Jeaneth mari Result ALYSSAALANNAH [address] Department [place] [address] * (ABNORMAL) CBC with auto differential (10/23/2024 5:27 AM TEST LAB TECHNICIAN) Pathologist [facility] WBC 5.3 3.8 - 9.9 K/cumm Hgb 8.8(L) 13.0 - 17.5 g/dL [facility] Hct 28.9(L) 38.9 - 50.3 % [facility] Plt 179 150 - 400 K/cumm [facility] MPV 10.4 9.1 - 12.3 fL [facility] RBC 2.86(L) 4.30 - 5.80 M/cumm [facility] MCV 101.0(H) 81.3 - 96.4 fL [facility] MCH 30.8 27.1 - 33.3 pg [facility] MCHC 30.4(L) 32.3 - 35.7 g/dL [facility] RDW CV 17.2(H) 11.1 - 14.9 % [facility] RDW SD 63.7(H) 35.7 - 48.1 fL [facility] NRBC abs 0.00 0.00 - 0.01 K/cumm [facility] Blood 10/23/2024 5:27 AM TEST LAB TECHNICIAN 10/23/2024 5:30 AM TEST LAB TECHNICIAN Raisa Scherer [employer] LAB BLOOD ORDERABLES Jeaneth l Result Performing Organization Address [facility] Co de Phone Number [facility] [address] [address] [facility] [place] [address] * Phosphorus (10/23/2024 5:27 AM TEST LAB TECHNICIAN) [facility] Phosphorus, pl 4.5 2.3 - 4.5 mg/dL Blood 10/23/2024 5:27 AM TEST LAB TECHNICIAN 10/23/2024 5:30 AM TEST LAB TECHNICIAN Raisa Scherer [employer] LAB BLOOD ORDERABLES Jeaneth l Result Performing Organization Address City/[facility] Co de Phone Number [facility] [address] [place] [address] * Magnesium (10/23/2024 5:27 AM TEST LAB TECHNICIAN) Magnesium 2.1 1.4 - 2.5 mg/dL Blood 10/23/2024 5:27 AM TEST LAB TECHNICIAN 10/23/2024 5:30 AM TEST LAB TECHNICIAN us Raisa Scherer [employer] LAB BLOOD ORDERABLES Jeaneth l Result [facility] [address] Department [place] [address] * (ABNORMAL) Comprehensive metabolic panel (10/23/2024 5:27 AM TEST LAB TECHNICIAN) Sodium 137 135 - 145 mmol/L Potassium, [...] CH AST 6(L) 10 - 50 Units/L [facility] Blood 10/23/2024 5:27 AM TEST LAB TECHNICIAN 10/23/2024 5:30 AM TEST LAB TECHNICIAN Raisa Scherer [employer] LAB BLOOD ORDERABLES Jeaneth l Result Performing Organization Address [facility] de Phone Number NIDIA [address] [address] [facility] [place] [address] * POCT glucose (10/23/2024 3:04 AM TEST LAB TECHNICIAN) Glucose, POC 84 70 - 199 mg/dL Blood 10/23/2024 3:04 AM TEST LAB TECHNICIAN 10/23/2024 3:04 AM TEST LAB TECHNICIAN Sylvester Engel MD LAB POCT ORDERABLES - DEVICE Final Result Performing Organization Address [facility] Phone Number [facility] [address] [address] [facility] [place] [address] * POCT glucose (10/22/2024 10:42 PM TEST LAB TECHNICIAN) Glucose, POC 101 70 - 199 mg/dL Blood 10/22/2024 10:4 2 PM TEST LAB TECHNICIAN 10/22/2024 10:42 PM TEST LAB TECHNICIAN Sylvester Engel MD LAB POCT ORDERABLES - DEVICE Final Result Performing Organization Address [facility] de Phone Number [facility] [address] [address] [facility] [place] [address] * POCT glucose (10/22/2024 8:42 PM TEST LAB TECHNICIAN) Glucose, POC 114 70 - 199 mg/dL Blood 10/22/2024 8:42 PM TEST LAB TECHNICIAN 10/22/2024 8:42 PM TEST LAB TECHNICIAN Guru Miller MD LAB POCT ORDERABLES - DEVICE Final Result Performing Organization Address [facility]/State/ZIP Co de Phone Number NIDIA COTE [address] [place] [address] * (ABNORMAL) HM DIABETES EYE EXAM (08/13/2024 9:40 AM CDT) Historical Provider HEALTH MAINTENANCE Edited Result - Final * (ABNORMAL) Albumin Creatinine Ratio, Urine (03/10/2024 8:46 AM CDT) Albumin Ur 3,169.5 mg/L Comment: Interpretive Data No reference range established. Current interpretive data was last revised 2019. Creatinine Ur 47.7 mg/dL [facility] Comment: Interpretive Data No reference range established. Current interpretive data was last revised 2019. Albumin Creatinine Ratio, Ur 6,645(H) 1 - 29 mg/g [facility] Urine 03/10/2024 8:46 AM CDT 03/11/2024 9:11 AM CDT Bertha Pinto NP LAB URINE ORDERABLES Jeaneth l Result NIDIA COTE [address] [place] [address] * (ABNORMAL) Lipid panel (03/03/2024 9:29 AM [...] revised on 2018. Triglycerides 75 <=149 mg/dL [facility] Comment: Interpretive Data Ages < or = [...] last revised on 2018. Chol/HDL ratio 2 [facility]YSSA[facility]ANNAH COTE Blood 03/03/2024 9:29 AM CDT 03/03/2024 4:40 PM CDT us Bertha Pinto NP LAB BLOOD ORDERABLES Jeaneth l Result NIDIA COTE [address] Department [place] [address] * CT Abdomen Pelvis WO Contrast (12/05/2021 11:53 AM TEST LAB TECHNICIAN) Anatomical Region Laterality Modality Body N/A Computed Tomogra phy 12/05/2021 12:0 4 PM TEST LAB TECHNICIAN Impressions 12/05/2021 12:04 PM TEST LAB TECHNICIAN Bone windows show no suspicious lytic or blastic lesions. IMPRESSION: 1. 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 2. 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 Electronically signed by: Ryna Cameron M.D. Narrative 12/05/2021 12:04 PM TEST LAB TECHNICIAN EXAMINATION: Computed tomography of the abdomen/pelvis without [...] adeniform shape. There is atrophy of both [place] kidneys. Adjacent fat stranding is likely related [...] adeniform shape. There is atrophy of both [place] kidneys. Adjacent fat stranding is likely related [...]
--- OUTSIDE RECORDS SUMMARY | 2024-12-30 16:55 | XMS_ITS | Patient Health Summary ---
Author Organization [facility] Address [address] [place] [address] Care Team Providers Care Occupational Health Physiotherapist Name Role Phone Mariza Carrion MD Primary Care Provider Note from [facility],non-owned Affiliates and Associated Physician Practices is amultiple site organization consisting of ambulatory clinics and hospital sitesin [place], [place], [place] and [place]. This disclosure is being madepursuant to the Care Everywhere program and may not contain all information available regarding this patient. Last updated 18.[facility] Allergies No known active allergies Medications * [...] 09/19/2018) Use pads 5 times daily * eylqp-6-lhec ethyl esters (LOVAZA) 1 g capsule(Started 02/23/2020) [...] as needed FOR MUSCLE SPASM * HYDROcodone-acetaminophen (Cando) 5-325 MG tablet(Started 12/15/2023) * Lokelma 10 [...] and heating? Not hard at all 04/06/2023 [facility] [place] of Occupat ional Health - Occupational Stress [...] place to sleep or slept in a detention (including now)? No 04/06/2023 Sex and Gender Information Value Date Recorded Sex Assigned at Not on file Gender Identity Not on file Sexual Orientation Not on file Last Filed Vital Signs Vital Sign Reading Time Taken Comments Blood Pressure 147/70 09/22/2024 8:55 AM FINANCIAL SERVICE REP Pulse 68 09/22/2024 8:55 AM FINANCIAL SERVICE REP Temperature 36.2 C (97.2 F) 09/22/2024 7:24 AM FINANCIAL SERVICE REP Respiratory Rate 15 09/22/2024 8:55 AM FINANCIAL SERVICE REP Oxygen Saturation 92% 09/22/2024 8:55 AM FINANCIAL SERVICE REP Inhaled Oxygen Concentration 25% 04/11/2023 7 :26 PM CDT Weight 87.9 kg (193 lb 12.6 oz) 09/22/2024 7:24 AM FINANCIAL SERVICE REP Height 170.2 cm (5' 7 ) 09/22/2024 7:24 AM FINANCIAL SERVICE REP Body Mass Index 30.35 09/22/2024 7:24 AM FINANCIAL SERVICE REP Medical Devices Implanted Type Area Bilingual Operator Device Identifier Shelf Expiration Date Model / Serial / Lot Mynxgrip Vascular Closure Device Implanted:Qty: 1 on 04/11/2023 by Matt Beyer DO at [facility] Right: Groin 01/19/2025 [id number] / [id number] / [id number] 5tch Cv 6x1cm Photofix Decellularized Implanted:Qty: 1 on 04/20/2023 by Matt Beyer DO at [facility] N/A: Other (See Descriptio n) [employer] 01/28/2024 [id number] / / [id number] Description:LEFT FEMORAL ART BARI Procedures * CARDIAC RHYTHM STRIP ORDER(Performed 09/23/2024) * IR ANGIO AV SHUNT IMAGING(Performed 09/22/2024) Performed for ESRD (end stage renal disease) ([facility]) * CARDIAC RHYTHM STRIP ORDER(Performed 06/10/2024) * IR ANGIO AV SHUNT IMAGING(Performed 06/09/2024) Performed for ESRD (end stage renal disease) ([facility]) * CARDIAC RHYTHM STRIP ORDER(Performed 01/29/2024) * CARDIAC RHYTHM STRIP ORDER(Performed 09/25/2023) * IR ANGIO AV SHUNT IMAGING(Performed 09/24/2023) Performed for Encounter regarding vascular access for dialysis for end-stage renal disease ([facility]) * CARDIAC RHYTHM STRIP ORDER(Performed 06/01/2023) * IR ANGIO AV SHUNT IMAGING(Performed 05/30/2023) Performed for Encounter regarding vascular access for dialysis for end-stage renal disease ([facility]) * VAS LEFT ARTERIAL DUPLEX LE(Performed 05/17/2023) [...] 04/20/2023) * ENDOTRACHEAL TUBE NOTE(Performed 04/20/2023) * SD TEAEC W/GRAFT SUPERFICIAL FEMORAL ART(Performed 04/20/2023) * PTT(Performed 04/20/2023) * PT-INR(Performed 04/20/2023) * TYPE + SCREEN PANEL(Performed 04/20/2023) * CBC W AUTO DIFFERENTIAL(Performed 04/20/2023) * RENAL FUNCTION PANEL(Performed 04/20/2023) * GLUCOSE - POINT OF CARE(Performed 04/19/2023) * GLUCOSE - POINT OF CARE(Performed 04/19/2023) * HYBRID IMAGING(Performed 04/19/2023) Performed for PVD (peripheral vascular disease) ([facility]) * ENDOTRACHEAL TUBE NOTE(Performed 04/19/2023) * HEMODIALYSIS [...] 04/13/2023) Performed for PVD (peripheral vascular disease) ([facility]) * STRESS TEST(Performed 04/13/2023) Performed for PVD (peripheral vascular disease) ([facility]) * GLUCOSE - POINT OF CARE(Performed 04/13/2023) [...] EKG 12-LEAD(Performed 04/11/2023) Performed for Cardiac arrest ([facility]) * GLUCOSE - POINT OF CARE(Performed 04/11/2023) * LACTIC ACID BLOOD(Performed 04/11/2023) * TROPONIN I(Performed 04/11/2023) * EKG 12-LEAD(Performed 04/11/2023) Performed for Cardiac arrest ([facility]) * TROPONIN I(Performed 04/11/2023) * COAGULATION PANEL [...] Performed for ESRD (end stage renal disease) ([facility]) * CARDIAC RHYTHM STRIP ORDER(Performed 06/12/2022) * IR ANGIO AV SHUNT IMAGING(Performed 05/31/2022) Performed for Complication of arteriovenous dialysis fistula, initial encounter * CARDIAC RHYTHM STRIP ORDER(Performed 02/02/2022) * IR ANGIO AV SHUNT IMAGING(Performed 01/25/2022) Performed for ESRD (end stage renal disease) ([facility]) * CARDIAC RHYTHM STRIP ORDER(Performed 10/03/2021) * IR ANGIO AV SHUNT IMAGING(Performed 09/28/2021) Performed for ESRD (end stage renal disease) ([facility]) * CARDIAC RHYTHM STRIP ORDER(Performed 06/07/2021) * [...] Performed for ESRD (end stage renal disease) ([facility]), Complication of arteriovenous dialysis fistula,initial encounter * CARDIAC RHYTHM STRIP ORDER(Performed 06/17/2019) * IR ANGIO AV SHUNT IMAGING(Performed 06/04/2019) Performed for Complication of arteriovenous dialysis fistula, initial encounter, ESRD (end stage renal disease) ([facility]) * VAS DIALYSIS EXIST ACCESS SCAN(Performed 01/27/2019) Performed for ESRD (end stage renal disease) ([facility]) * GLUCOSE - POINT OF CARE(Performed 09/17/2018) * ARTERIOVENOUS FISTULA TRANSPOSITION / SUPERFICIALIZATION(Performed 09/17/2018) * GLUCOSE - POINT OF CARE(Performed 09/17/2018) * BASIC METABOLIC PANEL (CALCIUM TOTAL)(Performed 09/17/2018) Performed for Preoperative examination * VAS DIALYSIS EXIST ACCESS SCAN(Performed 08/26/2018) Performed for ESRD (end stage renal disease) ([facility]) * VAS DIALYSIS EXIST ACCESS SCAN(Performed 07/22/2018) Performed for ESRD (end stage renal disease) ([facility]) * CREATE FISTULA A-V(Performed 07/09/2018) * GLUCOSE - POINT OF CARE(Performed 07/09/2018) * BASIC METABOLIC PANEL (CALCIUM TOTAL)(Performed 07/09/2018) Performed for Preoperative examination * VAS BILAT MAPPING FOR HEMODIALYSIS(Performed 06/03/2018) Performed for ESRD (end stage renal disease) ([facility]) * ANGIOGRAM/ARTERIOGRAM Results * CARDIAC RHYTHM STRIP ORDER (09/23/2024 9:57 PM FINANCIAL SERVICE REP) Only the most recent of19 resultswithin the time period is included. Narrative 09/23/2024 9:57 PM FINANCIAL SERVICE REP Ordered by an unspecified provider. Scanned Document CARDIAC SERVICES ORD ERABLES * IR Angio Av Shunt Imaging (09/22/2024 8:41 AM FINANCIAL SERVICE REP) Only the most recent of16 resultswithin the time period is included. Anatomical Region Laterality Modality Lower Extremity, Upper Extremity, Chest X-Ray Angiography Narrative 09/22/2024 8:43 AM FINANCIAL SERVICE REP Dank George MD 09/22/2024 8:46 AM [facility] [place] Brandie Morrissey 1945 DATE OF PROCEDURE: 09/22/2024 [...] stent. Tract was dilated and a 6 Uzbek sheath was inserted. Patient was given IV [...] A Bassett MD - 05/17/2023 [facility] [place] [address], [address] [place] [address] Lower Extremity Arterial Ultrasound Report Pat.Name: BRANDIE MORRISSEY JR Pat.ID: [id number] .Date: 05/17/2023 Refer.MD: KENN LACY Exam Time: 12:58:00 PM Study Type:LE Arterial Age: 7 1945,77Y Sex: MALE Sonogrphr: Liz Diana RVT Pat. Stat.:Outpatient CPT - 4: 01283 Reason for Study: Follow up surgery History / Clinical: Hypertension, Diabetes, Coronary artery disease, Hyperlipidemia Procedures: Lower Extremity Arterial Duplex - Left Race: [facility] Visit ID: [id number] ++++++++++++++++++++++++++++++++++++ SUMMARY: ++++++++++++++++++++++++++++++++++++ Severe left lower extremity peripheral vascular disease ++++++++++++++++++++++++++++++++++++ FINDINGS: ++++++++++++++++++++++++++++++++++++ Procedure: B-mode imaging, color flow Doppler and spectral analysis were used to examine the arteries of the left lower extremity. Study Quality: This study is of adequate technical quality. Lt Leg: Arterial doppler waveforms of the left FIRE ENGINE PUMP OPERATOR are biphasic. Arterial doppler waveforms of the left SFA are monophasic and appears to be near occlusion. Arterial doppler waveforms of the left lower calf arteries are monophasic. Calcified plaque visualized in the most of Arteries in Left Leg. ++++++++++++++++++++++++++++++++++++ MEASUREMENTS: ++++++++++++++++++++++++++++++++++++ DOPPLER Left FIRE ENGINE PUMP OPERATOR Prox FIRE ENGINE PUMP OPERATOR Prox PSV 119 cm/s Left ISELA Dist [...] Left Profunda Profunda PSV 55 cm/s Left PLANT TENDER Distal PLANT TENDER Distal PSV 26 cm/s PLANT TENDER Distal EDV 16 cm/s Left PLANT TENDER Mid PLANT TENDER Mid PSV 22 cm/s Left PLANT TENDER Prox PLANT TENDER Prox PSV 20 cm/s Left SFA Dist [...] Juan A Bassett MD Maria Isabel Barrios CIRCULAR [employer] RN VASCULAR LAB O RDERABLES * APHERESIS/TRANSFUSION ORDER (05/02/2023 3:59 PM CDT) Narrative 05/02/2023 3:59 PM CDT Ordered by an unspecified provider. Scanned Document NURSING - VITAL SIGN S AND ASSESSMENT * (ABNORMAL) GLUCOSE - POINT OF CARE (05/01/2023 1:21 PM CDT) Only the most recent of97 resultswithin the time period is included. [facility] Glucose WB/POC 121(H) 70 - 106 mg/dL 05/01/2023 3:14 PM CDT [facility] Specimen Type Cap Fingerstick 2022 3:14 PM CDT [facility] Blood BLOOD SPECIMEN / Unknown 05/01/2023 1:21 PM CDT 05/01/2023 3:14 PM CDT Jm Waters MD LAB - POINT OF CARE ORDERABLES [facility] [address] [place] [address] * (ABNORMAL) CBC W/O DIFFERENTIAL (05/01/2023 8:34 AM CDT) Only the most recent of9 resultswithin the time period is included. [facility] WBC 8.8 4.4 - 10.7 x10E9/L 05/01/2023 8:40 AM CDT [facility] RBC 2.67(L) 3.80 - 5.40 x10E12/L 05/01/2023 8:40 AM CDT [facility] Hemoglobin 7.9(L) 12.0 - 17.6 gm/dL 05/01/2023 8:40 AM CDT [facility] Hematocrit 23.3(L) 35.2 - 51.7 % 05/01/2023 8:40 AM CDT [facility] MCV 87.3 80.7 - 98.3 fl 05/01/2023 8:40 AM CDT [facility] MCH 29.6 26.7 - 34.0 pg 05/01/2023 8:40 AM CDT [facility] MCHC 33.9 30.8 - 35.9 gm/dL 05/01/2023 8:40 AM CDT [facility] Platelet Count 288 153 - 416 x10E9/L 05/01/2023 8:40 AM CDT [facility] RDW-CV 16.6(H) 12.1 - 14.9 % 05/01/2023 8:40 AM CDT [facility] MPV 10.6 9.4 - 12.9 fl 05/01/2023 8:40 AM CDT [facility] Blood BLOOD SPECIMEN / Unknown Venipuncture / Unknown 05/01/2023 8:34 AM CDT 05/01/2023 8:34 AM CDT Karma Delcid MD LAB - HEMATOLOGY ORD ERABLES [facility] [address] [place] [address] * (ABNORMAL) RENAL FUNCTION PANEL (05/01/2023 8:34 AM CDT) Only the most recent of15 resultswithin the time period is included. Glucose 139(H) 70 - 105 mg/dL 05/01/2023 8:57 AM CDT [facility] Sodium 122(LL) 136 - 145 mmol/L 05/01/2023 8:57 AM CDT [facility] Potassium 4.5 3.5 - 5.1 mmol/L 05/01/2023 8:57 AM CDT [facility] Chloride 88(L) 98 - 107 mmol/L 05/01/2023 8:57 AM CDT [facility] CO2 22(L) 23 - 31 mmol/L 05/01/2023 8:57 AM CDT [facility] Calcium 10.2 8.4 - 10.4 mg/dL 05/01/2023 8:57 AM CDT [facility] Anion Gap 12 8 - 18 mmol/L 05/01/2023 8:57 AM CDT [facility] BUN 62(H) 8.4 - 25.7 mg/dL 05/01/2023 8:57 AM CDT [facility] Creatinine 8.72(H) 0.72 - 1.25 mg/dL 05/01/2023 8:57 AM CDT [facility] Albumin 3.3 3.2 - 4.6 gm/dL 05/01/2023 8:57 AM CDT [facility] Phosphorus 5.5(H) 2.3 - 4.7 mg/dL 05/01/2023 8:57 AM CDT [facility] eGFR by CKD-EPI 6(L) >=90 mL/min/1.7 3 m2 05/01/2023 8:57 AM CDT [facility] Blood BLOOD SPECIMEN / Unknown Venipuncture / Unknown 05/01/2023 8:34 AM CDT 05/01/2023 8:34 AM CDT Karma Delcid MD LAB - CHEMISTRY RJ AYALA Performing Organization Address [facility]/ZIP Co de Phone Number [facility] [address] [place], [place] [id number] * (ABNORMAL) FOLATE (04/27/2023 10:47 AM CDT) Folate 5.1(L) 7.0 - 31.4 ng/mL 04/27/2023 12:01 PM CDT [facility] Blood BLOOD SPECIMEN / Unknown Venipuncture / Unknown 04/27/2023 10:47 AM CDT 04/27/2023 11:07 AM CDT Karma Delcid MD LAB - CHEMISTRY ORDShahida AYALA Performing Organization Address [facility] Co de Phone Number [facility] [address] [place] [address] * (ABNORMAL) IRON + TRANSFERRIN PANEL (04/27/2023 10:47 AM CDT) Iron 46(L) 65 - 175 ug/dL 04/27/2023 11:26 AM CDT [facility] Transferrin 175 163 - 344 mg/dL 04/27/2023 11:26 AM CDT [facility] TIBC Calculated 219(L) 240 - 450 ug/dL 04/27/2023 11:26 AM CDT [facility] Iron Saturation % 21 20 - 50 % 04/27/2023 11:26 AM CDT [facility] Blood BLOOD SPECIMEN / Unknown Venipuncture / Unknown 04/27/2023 10:47 AM CDT 04/27/2023 11:07 AM CDT Karma Delcid MD LAB - CHEMISTRY RJ ARSLANMARIA ELENA Performing Organization Address [facility]/ZIP Co de Phone Number [facility] [address] [place] [address] * (ABNORMAL) FERRITIN (04/27/2023 10:47 AM CDT) Pathologist [facility] Ferritin 1,435(H) 22 - 275 ng/mL 04/27/2023 12:01 PM CDT [facility] Blood BLOOD SPECIMEN / Unknown Venipuncture / Unknown 04/27/2023 10:47 AM CDT 04/27/2023 11:07 AM CDT Karma Delcid MD LAB - CHEMISTRY RJ AYALA Performing Organization Address [facility] de Phone Number [facility] [id number] [place] [address] * (ABNORMAL) BASIC METABOLIC PANEL (CALCIUM TOTAL) (04/27/2023 4:54 AM CDT) Only the most recent of11 resultswithin the time period is included. Pathologist [facility] Glucose 118(H) 70 - 105 mg/dL 04/27/2023 5:54 AM CDT [facility] Sodium 125(L) 136 - 145 mmol/L 04/27/2023 5:54 AM CDT [facility] Potassium 5.5(H) 3.5 - 5.1 mmol/L 04/27/2023 5:54 AM CDT [facility] Chloride 89(L) 98 - 107 mmol/L 04/27/2023 5:54 AM CDT [facility] CO2 25 23 - 31 mmol/L 04/27/2023 5:54 AM CDT [facility] Calcium 9.4 8.4 - 10.4 mg/dL 04/27/2023 5:54 AM CDT [facility] Anion Gap 11 8 - 18 mmol/L 04/27/2023 5:54 AM CDT [facility] BUN 31(H) 8.4 - 25.7 mg/dL 04/27/2023 5:54 AM CDT [facility] Creatinine 5.34(H) 0.72 - 1.25 mg/dL 04/27/2023 5:54 AM CDT [facility] eGFR by CKD-EPI 11(L) >=90 mL/min/1.7 3 m2 04/27/2023 5:54 AM CDT [facility] Blood BLOOD SPECIMEN / Unknown Venipuncture / Unknown 04/27/2023 4:54 AM CDT 04/27/2023 5:31 AM CDT Karma Delcid MD LAB - CHEMISTRY RJ AYALA [facility] [address] [place] [id number] * TRANSFUSE RED BLOOD CELL LEUKOREDUCED UNIT(S) (04/22/2023 3:02 AM CDT) Jacquelyn Shetty MD NURSING - BLOOD PROD TRANSFUSION * PREPARE (CROSSMATCH) RBC UNIT(S), 2 Units (04/21/2023 11:53 PM CDT) Unit Description AS1 LR PRBC [facility] BLOOD BANK Unit ABO O [facility]OD [facility] Unit Rh POS [facility] Product Number R02 [facility] BLOOD [facility] Unit Donor # [id number] [facility] C BLOOD BANK Unit Status transfused [facility] BL OOD BANK Product Code [id number] [facility] Blood Type Barcode 5100 [facility] Expiration Date D [facility] Unit Description AS1 LR PRBC [facility] BLOOD BANK Unit ABO O [facility] BLOOD BANK Unit Rh POS DP BLOOD BANK Product Number R02 DP BLOOD BANK Unit Donor # [id number] [facility] C BLOOD BANK Unit Status transfused [facility] BL OOD BANK Product Code [id number] DP BL OOD BANK Blood Type Barcode 5100 [facility] Expiration Date D [facility] Blood Bank BLOOD SPECIMEN / Unknown 04/20/2023 1:15 PM CDT Silvia Rincon MD LAB - BLOOD BANK ORDERABLES [facility] [address] [phone] * TRANSFUSE RED BLOOD CELL LEUKOREDUCED UNIT(S) (04/20/2023 7:54 PM CDT) Jacquelyn Shetty MD NURSING - BLOOD PROD TRANSFUSION * PATHOLOGY TISSUE EXAM (STL) (04/20/2023 7:41 PM CDT) Case Report Surgical Pathology Report Case: [id number] Authorizing Provider: Matt Beyer DO Collected: 04/20/2023 07:41 PM Ordering Location: [facility] Received: 04/23/2023 06:38 AM Pathologist: Tl Doss MD Specimen: Artery Athero Plaque, LEFT ILIOFEMORAL ENDARTERECTOMY 04/25/2023 9:27 AM T [facility] Final Diagnosis A. Left iliofemoral, endarterectomy: -- Calcific atherosclerosis 04/25/2023 9:27 AM T [facility] Clinical History Peripheral arterial disease 04/25/2023 9:27 AM T [facility] Gross Description Received in formalin in a sterile container labeled Brandie Morrissey Jr, left iliofemoral endarterectomy, are multiple yellow-corbin atherosclerotic plaques of tissue measuring 2.3 x 1.3 x 0.6 cm in aggregate. Engine Cleaner sections are submitted in cassette A1 for decalcification. CH/eh 04/25/2023 9:27 AM T [facility] Microscopic Description Microscopic examination substantiates the above cited diagnosis. MC 04/25/2023 9:27 AM T [facility] Disclaimer All histochemical and/or immunohistochemical results are interpreted with controls that demonstrate appropriate staining reactions before reporting results. Note on use of immunocytochemistry reagents: This test was developed and its performance characteristic determined by [facility], Department of Laboratory Medicine. It has [...] interpreted with caution. 04/25/2023 9:27 AM CDT [facility] Embedded Images 04/25/2023 9:27 AM CDT [facility] Pathology/Cytolo gy ATHEROMA / Unknown 04/20/2023 7:41 PM CDT 04/23/2023 6:38 AM CDT Matt Beyer DO LAB - PATHOLOGY/CY TOLOGY ORDERABLES [facility] [address] [place] [address] * ETT LINE PERFORMABLE (04/20/2023 6:09 PM CDT) Narrative Akhil Sanders APRN-CRNA - 04/20/2023 6:09 PM CDT Akhil Sanders APRN-CRNA 04/20/2023 6:09 PM Endotracheal Tube Placement: Patient Location: OR. Intubation Event Date/Time: 04/20/2023 6:01 PM Procedure: intubation (21898). Procedure Section: Sedation: under general anesthesia. Indications [...] - 38.4 sec 04/20/2023 1:50 PM CDT [facility] Blood BLOOD SPECIMEN / Unknown Venipuncture / Unknown 04/20/2023 1:32 PM CDT 04/20/2023 1:38 PM CDT Narrative [facility] - 04/20/2023 1:50 PM CDT Heparin Therapeutic Range for PTT: 69.0 - 110.0 seconds. Maria Isabel Barrios CIRCULAR [employer]W [employer] RN LAB - COAGULAT ION ORDERABLES Performing Organization Address [facility] Co de Phone Number [facility] [address] [place] [address] * PT-INR (04/20/2023 1:32 PM CDT) Only the most recent of2 resultswithin the time period is included. PT 14.2 12.1 - 14.8 sec 04/20/2023 1:50 PM CDT [facility] INR 1.1 0.9 - 1.1 04/20/2023 1:50 PM CDT [facility] Blood BLOOD SPECIMEN / Unknown Venipuncture / Unknown 04/20/2023 1:32 PM CDT 04/20/2023 1:38 PM CDT Narrative [facility] - 04/20/2023 1:50 PM CDT Conventional Warfarin Anticoagulant Therapy: INR Reference Range: 2.0-3.0 Intensive Warfarin Anticoagulant Therapy: INR Reference Range: 2.5-3.5 Maria Isabel Barrios CIRCULAR SAW [employer] RN LAB - COAGULAT ION ORDERABLES Performing Organization Address [facility]/ZIP Co de Phone Number [facility] [address] [place] [address] * TYPE + SCREEN PANEL (04/20/2023 1:10 PM CDT) Only the most recent of3 resultswithin the time period is included. ABO Rh O POS 04/20/2023 1:59 PM CDT [facility] Comment:History checked. Antibody Screen NEG 1:59 PM CDT [facility] Blood Bank BLOOD SPECIMEN / Unknown Venipuncture / Unknown 04/20/2023 1:10 PM CDT 04/20/2023 1:15 PM CDT Silvia Rincon MD LAB - BLOOD BANK ORDERABLES [facility] [address] [phone] * (ABNORMAL) CBC W AUTO DIFFERENTIAL (04/20/2023 1:10 PM CDT) Only the most recent of15 resultswithin the time period is included. WBC 7.2 4.4 - 10.7 x10E9/L 04/20/2023 1:21 PM CDT [facility] WBC Corrected 04/20/2023 1:21 PM CDT [facility] RBC 2.18(L) 3.80 - 5.40 x10E12/L 04/20/2023 1:21 PM CDT [facility] Hemoglobin 6.9(L) 12.0 - 17.6 gm/dL 04/20/2023 1:21 PM CDT [facility] Hematocrit 20.4(L) 35.2 - 51.7 % 04/20/2023 1:21 PM CDT [facility] MCV 93.6 80.7 - 98.3 fl 04/20/2023 1:21 PM CDT [facility] MCH 31.7 26.7 - 34.0 pg 04/20/2023 1:21 PM CDT [facility] MCHC 33.8 30.8 - 35.9 gm/dL 04/20/2023 1:21 PM CDT [facility] Platelet Count 212 153 - 416 x10E9/L 04/20/2023 1:21 PM CDT [facility] RDW-CV 14.1 12.1 - 14.9 % 04/20/2023 1:21 PM CDT [facility] MPV 10.9 9.4 - 12.9 fl 04/20/2023 1:21 PM CDT [facility] Neutrophils % 80.3(H) 44.0 - 73.0 % 04/20/2023 1:21 PM CDT [facility] Lymphocytes % 5.7(L) 20.0 - 43.0 % 04/20/2023 1:21 PM CDT [facility] Monocytes % 11.7 5.0 - 13.0 % 04/20/2023 1:21 PM CDT [facility] Eosinophils % 1.0 0.0 - 6.0 % 04/20/2023 1:21 PM CDT [facility] Basophils % 0.7 0.0 - 2.0 % 04/20/2023 1:21 PM CDT [facility] Immature Granulocytes 0.6 0 - 1 % 04/20/2023 1:21 PM CDT [facility] [facility] Neutrophil Absolute 5.75 2.01 - 7.14 x10E9/L 04/20/2023 1:21 PM CDT [facility] Lymphocytes Absolute 0.41(L) 1.07 - 3.94 x10E9/L 04/20/2023 1:21 PM CDT [facility] Monocytes Absolute 0.84 0.26 - 1.07 x10E9/L 04/20/2023 1:21 PM CDT [facility] Eosinophils Absolute 0.07 0 - 0.47 x10E9/L 04/20/2023 1:21 PM CDT [facility] Basophils Absolute 0.05 0 - 0.08 x10E9/L 04/20/2023 1:21 PM CDT [facility] Immature Granulocytes Absolute 0.04 0.00 - 0.06 x10E9/L 04/20/2023 1:21 PM CDT [facility] nRBC Auto 0 /100 WBC 04/20/2023 1:21 PM CDT [facility] Blood BLOOD SPECIMEN / Unknown Venipuncture / Unknown 04/20/2023 1:10 PM CDT 04/20/2023 1:15 PM CDT Silvia Rincon MD LAB - HEMATOLOGY ORDERABLES [facility] [address] [place] [address] * HYBRID IMAGING (04/19/2023 5:30 PM CDT) Only the most recent of2 resultswithin the time period is included. Narrative [facility] - 04/23/2023 2:10 PM CDT Please see the progress note. Matt Beyer DO CARDIAC BILINGUAL INTERPRETER R ADIANT [facility] [address] [place] [address] * ETT LINE PERFORMABLE (04/19/2023 3:58 PM CDT) Narrative Bradley Sharma APRN-CRNA - 04/19/2023 3:58 PM CDT Bradley Sharma APRN-CRNA 04/19/2023 3:59 PM Endotracheal Tube Placement: Patient Location: OR. Intubation Event Date/Time: 04/19/2023 3:54 PM Procedure: intubation (60798). Procedure Section: Sedation: under general anesthesia. Indications [...] Patient Location: Holding Area. Procedure: Arterial Line ([id number]). Procedure Section Indications: continuous blood pressure monitoring [...] - 34 U/L 04/19/2023 6:19 AM CDT [facility] Protein Total 6.2(L) 6.4 - 8.3 gm/dL 04/19/2023 6:19 AM CDT [facility] Albumin 3.4 3.2 - 4.6 gm/dL 04/19/2023 6:19 AM CDT [facility] Bilirubin Total 0.4 0.2 - 1.2 mg/dL 04/19/2023 6:19 AM CDT [facility] eGFR by CKD-EPI 7(L) >=90 mL/min/1.7 3 m2 04/19/2023 6:19 AM CDT [facility] Blood BLOOD SPECIMEN / Unknown Venipuncture / Unknown 04/19/2023 5:15 AM CDT 04/19/2023 5:49 AM CDT Maria Isabel Barrios APRN-NEW GRAD RN LAB - CHEMISTR Y ORDERABLES Performing Organization Address [facility] Co de Phone Number [facility] [address] [place] [address] * (ABNORMAL) PHOSPHORUS BLOOD (04/19/2023 5:15 AM CDT) Only the most recent of7 resultswithin the time period is included. Phosphorus 7.3(H) 2.3 - 4.7 mg/dL 04/19/2023 6:15 AM CDT [facility] Blood BLOOD SPECIMEN / Unknown Venipuncture / Unknown 04/19/2023 5:15 AM CDT 04/19/2023 5:49 AM CDT Adele Cabrera MD LAB - CHEMISTRY ORDE RABLES Performing Organization Address [facility] Co de Phone Number [facility] [address] [place] [address] * MAGNESIUM BLOOD (04/19/2023 5:15 AM CDT) Only the most recent of12 resultswithin the time period is included. Magnesium 2.2 1.6 - 2.6 mg/dL 04/19/2023 6:15 AM CDT [facility] Blood BLOOD SPECIMEN / Unknown Venipuncture / Unknown 04/19/2023 5:15 AM CDT 04/19/2023 5:49 AM CDT Adele Cabrera MD LAB - CHEMISTRY RJ AYALA [facility] Organization Address City/State/ZIP Co de Phone Number [facility] [address] [place] [address] * (ABNORMAL) ECHO COMPLETE W CONTRAST (04/18/2023 12:35 PM CDT) BSA [id number] m2 [facility] CV FUJI PACS LV biplane [...] I PACS LV RWT 0.473 [facility] CV [facility] I PACS LV Na A2C 7.895 cm [facility] CV F UJI PACS LV An A4C 7.563 cm [facility] CV F UJI PACS LV mass m-mode 203.74 88 - 224 g [facility] CV [facility]I PACS LV mass index m-mode 98.45 49 - 115 g/m2 [facility] E pk khris 183.498 cm/s [facility] CV F UJI PACS MV avg E/e' ratio 43.09 SS M CV FUJI PACS MV A pk khris 107.563 cm/s [facility] CV F UJI PACS MV E A ratio 1.71 [facility] E' lateral khris 3.961 cm/s SS [facility] DT 252 ms [facility] CV [facility] I PACS MV E' septal khris 4.604 cm/s [facility] E/e' septal 39.858 [facility] C V FUJI PACS MV E/e' lateral 46.329 [facility] TR pk khris 273.9 cm/s [facility] I PACS LVOT pk khris 0.89 [...] 30 mmHg S[facility] CV FU JI PACS SD pk grad 7 mmHg [facility] CV FU JI PACS PV pk khris 136.348 cm/s SSM CV FUJ I PACS PV pk grad 7 mmHg SSM CV FU JI PACS [id number] 6.907 cm SSM CV FUJ I PACS [id number] 6.723 cm SSM CV FUJ I PACS [...] Normal, Adequate platelets 04/17/2023 8:42 AM CDT [facility] Poikilocytosis 1+(A) None 04/17/2023 8:42 AM CDT [facility] Crenated Cells 1+(A) None 04/17/2023 8:42 AM CDT [facility] Blood BLOOD SPECIMEN / Unknown Venipuncture / Unknown 04/17/2023 5:43 AM CDT 04/17/2023 6:03 AM CDT Adele Cabrera MD LAB - HEMATOLOGY ORD ERABLES Performing Organization Address City/[facility] Co de Phone Number [facility] [address] [place] [address] * EKG 12-LEAD (04/13/2023 2:41 PM CDT) Only the most recent of3 resultswithin the time period is included. Ventricular Rate 75 BPM [facility] Atrial Rate 75 BPM [facility] P-R Interval 236 ms [facility] QRS Duration ms 142 ms [facility] Q-T Interval ms 514 ms [facility] QTC Calculation (Bezet) 573 ms [facility] Calculated P [place] 74 degrees [facility] Calculated R [place] -20 degrees [facility] Calculated T [place] -152 degrees [facility] Interpretation EKG Sinus rhythm with 1st degree A-V block with frequent Premature ventricular complexes Right bundle branch block T wave abnormality, consider lateral ischemia Abnormal ECG No previous ECGs available Confirmed by WILLIAM KIRBY MD ([id number]) on 04/16/2023 5:21:48 PM [facility] 04/13/2023 2:41 PM CDT 04/16/2023 5:21 PM CDT Rico Gallagher MD ECG ORDERABLES Performing Organization Address [facility] Co de Phone Number [facility] * NM MYOCARD PERF REST STRESS [...] mCi of Tc99m Tetrofosmin at rest and 33uSqQu64s Tetrofosmin at stress. 0.4 mg of Lexiscan [...] resultswithin the time period is included. Pathologist [facility] Troponin I 0.948(HH) <0.038 ng/mL 04/12/2023 12:45 PM CDT [facility] Blood BLOOD SPECIMEN / Unknown Venipuncture / Unknown 04/12/2023 12:02 PM CDT 04/12/2023 12:11 PM CDT Parveen Sewell MD LAB - CHEMISTRY RJ AYALA [facility] [address] [place] [address] * TSH REFLEX FREE T4 (04/12/2023 3:52 AM CDT) Pathologist [facility] TSH 1.592 0.350 - 4.940 uIU/mL 04/12/2023 5:04 AM CDT [facility] Blood BLOOD SPECIMEN / Unknown Venipuncture / Unknown 04/12/2023 3:52 AM CDT 04/12/2023 4:04 AM CDT Parveen Sewell MD LAB - CHEMISTRY RJ AYALA Performing Organization Address [facility] Co de Phone Number [facility] [id number] [place] [phone] * AMMONIA (04/12/2023 3:52 AM CDT) Ammonia 19 18 - 72 umol/L 04/12/2023 4:19 AM CDT [facility] Blood BLOOD SPECIMEN / Unknown Venipuncture / Unknown 04/12/2023 3:52 AM CDT 04/12/2023 4:02 AM CDT Parveen Sewell MD LAB - CHEMISTRY RJ AYALA Performing Organization Address [facility] de Phone Number [facility] [address] [place] [address] * LACTIC ACID BLOOD (04/11/2023 11:37 PM CDT) Only the most recent of3 resultswithin the time period is included. Lactic Acid 0.50 <=2 mmol/L 04/12/2023 12:00 AM CDT [facility] Blood BLOOD SPECIMEN / Unknown Venipuncture / Unknown 04/11/2023 11:37 PM CDT 04/11/2023 11:48 PM CDT Parveen Sewell MD LAB - CHEMISTRY RJ AYALA Performing Organization Address [facility] de Phone Number [facility] [phone] [place] [phone] * (ABNORMAL) COAGULATION PANEL W D-DIMER (04/11/2023 3:13 PM CDT) PT 14.0 12.1 - 14.8 sec 04/11/2023 3:35 PM CDT [facility] INR 1.1 0.9 - 1.1 04/11/2023 [...] Sewell MD LAB - COAGULATION OR DERABLES [facility] [address] [place] [address] * (ABNORMAL) BLOOD GASES ARTERIAL [...] BLOOD GASES OR DERABLES Performing Organization Address City/State/[facility] Co de Phone Number [facility] [address] [phone] * XR CHEST 1VW PORTABLE (04/11/2023 2:40 [...] Event Date/Time: 04/11/2023 1:40 PM Procedure: intubation ([id number]). Procedure Section: Sedation: none. Procedure pretreatments used? [...] minutes. Staff Section Anesthesia Provider: Dank Casey, CIRCULAR SAW EDGE FUSER-POLICE SERGEANT PRECINCT, Performed the procedure Diamond Spring MD GENERAL ANESTHESIA O EDGAR * ARTERIAL LINE PERFORMABLE (04/11/2023 1:57 PM CDT) Narrative Diamond Spring MD - 04/11/2023 1:57 PM CDT Dank Casey, PIPER 04/11/2023 2:01 PM Arterial Line Placement Procedure Note Patient Location: OR. Procedure: Arterial Line ([id number]). Procedure Section Indications: hypotension and renal failure. [...] No Staff Section Anesthesia Provider: Dank Casey, CIRCULAR SAW EDGE FUSER-POLICE SERGEANT PRECINCT, Performed the procedure Diamond Spring MD GENERAL ANESTHESIA O YAIMAERAMARIO * LACTIC ACID BLOOD REFLEX TO REPEAT (04/07/2023 11:52 AM CDT) Lactic Acid 0.54 <=2 mmol/L 04/07/2023 12:20 PM CDT [facility] Blood BLOOD SPECIMEN / Unknown Venipuncture / Unknown 04/07/2023 11:52 AM CDT 04/07/2023 12:00 PM CDT Ilan Black MD LAB - CHEMISTRY RJ AYALA [facility] [address] [place] [address] * CT ANGIO ABDOMEN AORTA [...] DATE/TIME OF EXAM: 04/07/2023 9:55 AM, LOCATION [facility] INDICATION: I70.90: Unspecified atherosclerosis ADDITIONAL [...] RUNOFF, DATE/TIME OF EXAM:04/07/2023 9:55 AM, LOCATION [facility] INDICATION: I70.90: Unspecified atherosclerosis ADDITIONAL [...] ANTIBODY QUANT (04/07/2023 8:19 AM CDT) Pathologist [facility] Hepatitis B Virus Surface Antibody Quantitative 33.58(H) 0.00 - 7.99 mIU/ml 04/07/2023 1:34 PM CDT [facility] HBsAb REACTIVE( A) Non Reactive 04/07/2023 1:34 PM CDT [facility] Blood BLOOD SPECIMEN / Unknown Venipuncture / Unknown 04/07/2023 8:19 AM CDT 04/07/2023 8:31 AM CDT Narrative [facility] - 04/07/2023 1:34 PM CDT Individual is considered immune to HBV infection. Marito Rios MD LAB - SEROLOGY ORDER JENNIFER Performing Organization Address City/State/[facility] Co de Phone Number [facility] [address] [place] [address] * HEPATITIS SCREEN ACUTE (04/07/2023 8:19 AM CDT) Pathologist [facility] HAV Antibody IgM Non Reactive Non Reactive 04/07/2023 9:28 AM CDT [facility] HBsAg Non Reactive Non Reactive 04/07/2023 9:28 AM CDT [facility] HBc Antibody IgM Non Reactive Non Reactive 04/07/2023 9:28 AM CDT [facility] HCV Antibody Screen Non Reactive Non Reactive 04/07/2023 9:28 AM CDT [facility] Blood BLOOD SPECIMEN / Unknown Venipuncture / Unknown 04/07/2023 8:19 AM CDT 04/07/2023 8:31 AM CDT Narrative [facility] - 04/07/2023 9:28 AM CDT Non Reactive - Antibodies to Hepatitis C virus (HCV) were not detected, result does not exclude early acute HCV infection. Marito Rios MD LAB - CHEMISTRY RJ AYALA Performing Organization Address [facility] Co de Phone Number [facility] [address] [place] [address] * HEMOGLOBIN A1C (04/07/2023 4:28 AM CDT) Hemoglobin A1c 4.8 <5.7 % 04/07/2023 5:05 AM CDT [facility] Estimated Average Glucose 91 mg/dL 04/07/2023 5:05 AM CDT [facility] Blood BLOOD SPECIMEN / Unknown Venipuncture / Unknown 04/07/2023 4:28 AM CDT 04/07/2023 4:36 AM CDT Narrative [facility] - 04/07/2023 5:05 AM CDT HbA1c [...] exceeds 5% in the specimen. The [employer] assay for the measurement of HbA1c is a National Glycohemoglobin Standardization Program (NGSP) certified method. Susana MUSE LAB - CHEMISTRY Elli HERNÁNDEZ Performing Organization Address [facility] Co de Phone Number [facility] [address] [place] [address] * VAS ARTERIAL ANKLE ARM INDEX (04/05/2023 2:55 PM CDT) Anatomical Region Laterality Modality Ankle / Foot, Upper Extremity Ul trasound 04/05/2023 2:37 PM CDT Narrative Procedure Note Juan A Bassett MD - 04/05/2023 [facility] [place] [facility] [address] [address], [address] [place] [address] Lower Extremity Arterial Doppler Report Pat.Name: GUILLERMO BRANDIE Ashlyn MCKAY Pat.ID: [id number] .Date: 04/05/2023 Refer.MD: Juan A Bassett Exam Time: 2:37:00 PM Study Type:MARTY/PVR Age: 7 1945,77Y Sex: MALE Sonogrphr: Ebenezer Terrazas Rvt Pat. Stat.:Outpatient CPT - 4: 56126 Reason for Study: Pain -Leg, left Procedures: Ankle Arm Index Race: 2 Visit ID: [id number] ++++++++++++++++++++++++++++++++++++ SUMMARY: ++++++++++++++++++++++++++++++++++++ Severe arterial disease in [...] monophasic. Arterial doppler waveforms of the left PLANT TENDER are absent. Arterial doppler waveforms of the left DPA are absent. MARTY: Rt ankle brachial index is 1.5. Left ankle brachial index is 0.0 (normal greater than 0.90). Arterial doppler waveforms of the right PLANT TENDER are monophasic. Arterial doppler waveforms of the right DPA are biphasic. Arterial doppler waveforms of the left PLANT TENDER are absent. Arterial doppler waveforms of the [...] Dank George MD - 01/27/2019 [facility] [place] [address], [address] [place] [address] Hemodialysis Graft Report Pat.Name: BRANDIE MORRISSEY JR Pat.ID: [id number] .Date: 01/27/2019 Exam Time: 9:59:00 AM Study Type:Hemodialysis Graft Age: 7 1945,73Y Sex: MALE Sonogrphr: Ishmael Terrazas RVT Pat. Stat.:Outpatient ICD - 9: N18.6 End stage renal disease CPT - 4: 66644 Procedures: Vessel Mapping for Hemodialysis Race: 2 Visit ID: [id number] ++++++++++++++++++++++++++++++++++++ SUMMARY: ++++++++++++++++++++++++++++++++++++ Patent left upper AV [...] Dank George MD - 06/03/2018 [facility] [place] [facility] [address] [facility], [address] [place] [address] Vessel Mapping for Hemodialysis Report Pat.Name: BRANDIE MORRISSEY Pat.ID: [id number] St.Date: 06/03/2018 Exam Time: 12:05:00 PM Study Type:Vessel Mapping for Hemodialysis Age: 7 1945,73Y Sex: MALE Sonogrphr: Ishmael Terrazas RVT Pat. Stat.:Outpatient ICD - 9: N18.6 End stage renal disease CPT - 4: G0365 Procedures:Vessel Mapping for Hemodialysis Race: 2 Visit ID: [id number] ++++++++++++++++++++++++++++++++++++ SUMMARY: ++++++++++++++++++++++++++++++++++++ The cephalic and basilic [...] MD VASCULAR LAB ORDER JENNIFER Care Teams Occupational Health Physiotherapist Relationship Specialty Start Date End Date Mariza Carrion MD [address] [place] [address] PCP - General Family Medicine 08/26/18
--- OUTSIDE RECORDS SUMMARY | 2024-12-30 16:55 | XMS_ITS | Referral Summary ---
Author Organization [facility] Address [address] [place] [address] Care Team Providers Care Human Performance Technologist Name Role Phone Mariza Carrion MD Primary Care Provider Source Comments [facility],non-owned Affiliates and Associated Physician Practices is amultiple site organization consisting of ambulatory clinics and hospital sitesin [place], [place], [place] and [place]. This disclosure is being madepursuant to the Care Everywhere program and may not contain all information available regarding this patient. Last updated 18.[facility] [employer] Encounters Date Type Department Care Team Description 11/04/2024 Orders Only [facility] - Urology [address], [address] [place] [address] Anita Shay MA Urinary retention from Last 3 Months Allergies No known [...] Use pads 5 times daily 09/19/2018 Active sxmwp-9-uytw ethyl esters (LOVAZA) 1 g capsule Take [...] FOR MUSCLE SPASM 09/03/2024 Active HYDROcodone-aceta minophen ([place]) 5-325 MG tablet 12/15/2023 Active Lokelma 10 [...] and heating? Not hard at all 04/06/2023 [facility] - Occupational Stress [...] place to sleep or slept in a usp (including now)? No 04/06/2023 Sex and Gender Information Value Date Recorded Sex Assigned at Not on file Gender Identity Not on file Sexual Orientation Not on file Last Filed Vital Signs Vital Sign Reading Time Taken Comments Blood Pressure 147/70 09/22/2024 8:55 AM PHYSIOLOGY TEACHER Pulse 68 09/22/2024 8:55 AM PHYSIOLOGY TEACHER Temperature 36.2 C (97.2 F) 09/22/2024 7:24 AM PHYSIOLOGY TEACHER Respiratory Rate 15 09/22/2024 8:55 AM PHYSIOLOGY TEACHER Oxygen Saturation 92% 09/22/2024 8:55 AM PHYSIOLOGY TEACHER Inhaled Oxygen Concentration 25% 04/11/2023 7 :26 PM CDT Weight 87.9 kg (193 lb 12.6 oz) 09/22/2024 7:24 AM PHYSIOLOGY TEACHER Height 170.2 cm (5' 7 ) 09/22/2024 7:24 AM PHYSIOLOGY TEACHER Body Mass Index 30.35 09/22/2024 7:24 AM PHYSIOLOGY TEACHER Functional Status Functional Status Response Date of [...] Info) Description 03/23/2025 8:00 AM CDT Appointment [facility] [address] [place] [address], [facility] [address] [place] [address] Dank George MD [address] [place] [address] [place] [phone] Medical Devices Implanted Type Area Freight Representative Device Identifier Shelf Expiration Date Model / Serial / Lot Mynxgrip Vascular Closure Device Implanted:Qty: 1 on 04/11/2023 by Matt Beyer DO at [facility] Right: Groin 01/19/2025 [id number] / [id number] / [id number] 5tch Cv 6x1cm [employer] Decellularized Implanted:Qty: 1 on 04/20/2023 by Matt Beyer DO at [facility] N/A: Other (See Descriptio n) [employer] 01/28/2024 [id number] / / [id number] Description:LEFT FEMORAL ART BARI Procedures Procedure Name Priority Date/Time Associated Diagnosis Comments HEPATITIS SCREEN ACUTE STAT 04/07/2023 8:19 AM CDT from Last 3 Months or Most Recently Relevant to Health Maintenance Results * HEPATITIS SCREEN ACUTE (04/07/2023 8:19 AM CDT) HAV Antibody IgM Non Reactive Non Reactive 04/07/2023 9:28 AM CDT [facility] HBsAg Non Reactive Non Reactive 04/07/2023 9:28 AM CDT [facility] HBc Antibody IgM Non Reactive Non Reactive 04/07/2023 9:28 AM CDT [facility] HCV Antibody Screen Non Reactive Non Reactive 04/07/2023 9:28 AM CDT [facility] Blood BLOOD SPECIMEN / Unknown Venipuncture / Unknown 04/07/2023 8:19 AM CDT 04/07/2023 8:31 AM CDT Narrative [facility] - 04/07/2023 9:28 AM CDT Non Reactive - Antibodies to Hepatitis C virus (HCV) were not detected, result does not exclude early acute HCV infection. 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
--- OUTSIDE RECORDS SUMMARY | 2024-12-30 16:55 | XMS_ITS | Clinical Summary ---
Author Organization [facility] Address [address] [place] [phone] Phone Care Team Providers Care Resident Care Manager Name Role Phone Mariza Carrion MD [...] dir 0 11/12/2017 Active ergocalciferol (VITAMIN D-2) 76780 units capsule Take 1 capsule (50,000 Units total) by mouth 2 (two) times a week. 28 capsule 3 03/27/2019 Active hydrALAZINE (APRESOLINE) 100 MG tablet TAKE 1 TABLET TWICE A DAY 180 tablet 4 04/30/2019 Active aspirin 81 MG chewable tablet one p.o. qd 05/23/2012 Active ergocalciferol (VITAMIN D-2) 53402 units capsule one p.o. capsule once a [...] 2012 Influenza Vaccine (#1) 2024 Care Teams Resident Care Manager Relationship Specialty Start Date End Date Mariza Carrion MD [address] [place] [address] PCP - General Internal Medicine 01/06/19
--- OUTSIDE RECORDS SUMMARY | 2024-12-30 16:55 | XMS_ITS | Clinical Summary ---
Author Organization [facility] Address [address] [place] [address] Care Team Providers Care Automotive Glass Specialist Name Role Phone Mariza Carrion MD Primary Care Provider Source Comments [facility],non-owned Affiliates and Associated Physician Practices is amultiple site organization consisting of ambulatory clinics and hospital sitesin [place], [place], [place] and [place]. This disclosure is being madepursuant to the Care Everywhere program and may not contain all information available regarding this patient. Last updated 18.[facility] Allergies No known active allergies Medications * [...] Use pads 5 times daily 09/19/2018 Active ptrdw-5-ayfy ethyl esters (LOVAZA) 1 g capsule Take [...] FOR MUSCLE SPASM 09/03/2024 Active HYDROcodone-aceta minophen ([place]) 5-325 MG tablet 12/15/2023 Active Lokelma 10 [...] Department Care Team Description 11/04/2024 Orders Only [facility] - Urology [address], [address] [place] [id number] Anita Shay MA Urinary retention from Last 3 Months Family History Medical [...] and heating? Not hard at all 04/06/2023 [facility] - Occupational Stress [...] Comments Blood Pressure 147/70 09/22/2024 8:55 AM GEAR TESTER Pulse 68 09/22/2024 8:55 AM GEAR TESTER Temperature 36.2 C (97.2 F) 09/22/2024 7:24 AM GEAR TESTER Respiratory Rate 15 09/22/2024 8:55 AM GEAR TESTER Oxygen Saturation 92% 09/22/2024 8:55 AM GEAR TESTER Inhaled Oxygen Concentration 25% 04/11/2023 7 :26 PM CDT Weight 87.9 kg (193 lb 12.6 oz) 09/22/2024 7:24 AM GEAR TESTER Height 170.2 cm (5' 7 ) 09/22/2024 7:24 AM GEAR TESTER Body Mass Index 30.35 09/22/2024 7:24 AM GEAR TESTER Plan of Treatment Upcoming Encounters Date Type Department Care Team (Late st Contact Info) Description 03/23/2025 8:00 AM CDT Appointment [facility] [id number] [place] [address], [address] [place], [place] [id number] [place] [address] [place] [id number] Health Maintenance Due Date Last Done Comments [...] this topic Medical Devices Implanted Type Area District Scout Executive Device Identifier Shelf Expiration Date Model / Serial / Lot Mynxgrip Vascular Closure Device Implanted:Qty: 1 on 04/11/2023 by Matt Beyer DO at [facility] Right: Groin 01/19/2025 [id number] / [id number] / [id number] 5tch Cv 6x1cm [employer] Decellularized Implanted:Qty: 1 on 04/20/2023 by Matt Beyer DO at [facility] N/A: Other (See Descriptio n) [employer] 01/28/2024 [id number] / / [id number] Description:LEFT FEMORAL ART BARI Procedures Procedure Name Priority Date/Time Associated Diagnosis Comments HEPATITIS SCREEN ACUTE STAT 04/07/2023 8:19 AM CDT from Last 3 Months or Most Recently Relevant to Health Maintenance Results * HEPATITIS SCREEN ACUTE (04/07/2023 8:19 AM CDT) HAV Antibody IgM Non Reactive Non Reactive 04/07/2023 9:28 AM CDT [facility] HBsAg Non Reactive Non Reactive 04/07/2023 9:28 AM CDT [facility] HBc Antibody IgM Non Reactive Non Reactive 04/07/2023 9:28 AM CDT [facility] HCV Antibody Screen Non Reactive Non Reactive 04/07/2023 9:28 AM CDT [facility] Blood BLOOD SPECIMEN / Unknown Venipuncture / Unknown 04/07/2023 8:19 AM CDT 04/07/2023 8:31 AM CDT Narrative [facility] - 04/07/2023 9:28 AM CDT Non Reactive - Antibodies to Hepatitis C virus (HCV) were not detected, result does not exclude early acute HCV infection. Marito Rios MD LAB - CHEMISTRY [facility] A[facility] [address] [place] [address] from Last 3 Months or Most Recently Relevant to Health Maintenance Advance Directives Documents on File Type Date Recorded Patient Liquor Maker Expl anation Adv Directive/Living Will/POA 05/02/2023 3:49 PM * Full Code (Latest Code Status on File) Date Activated Date Inactivated Comments 04/06/2023 9:49 AM 05/01/2023 4:44 PM Care Teams Automotive Glass Specialist Relationship Specialty Start Date End Date Mariza Carrion MD [address] [place] [address] PCP - General Family Medicine 08/26/18
--- OUTSIDE RECORDS SUMMARY | 2024-12-30 16:55 | XMS_ITS | Clinical Summary ---
Author Organization [facility] Facility Address [address] [place] [id number] Care Team Providers Care Student Assistant Name Role Phone Murali Dawkins MD Primary Care Provider Encounters Date Type Department Care Team Description 10/28/2024 Documentation Only [facility], [address] [phone] Jeanie Graff from Last 3 Months Social [...] complete this topic Insurance MEDICARE Care Teams Student Assistant Relationship Specialty Start Date End Date Murali Dawkins MD [address] [place] [address] PCP - General Family Medicine 10/28/24
--- OUTSIDE RECORDS SUMMARY | 2024-12-30 16:56 | XMS_ITS | Encounter Summary ---
Author Organization [facility] Healthcare Address [address] [place] [address] Care Team Providers Care Core Driller Helper Name Role Phone Efren Hoyos MD Unavailable Dank Hicks MD Unavailable [phone] Mariza Carrion MD Primary Care Provider Encounter Details Date Type Department Care Team (Late st Contact Info) Description 12/30/2024 Telephone [facility] Medical Group Cardiology [address] [phone] Dank Hicks MD [address] [address] Social History Tobacco Use Types Packs/Day Years Used Date Smoking Tobacco: Former Cigarettes Smokeless Tobacco: Never Alcohol Use Standard Drinks/Week Comments Yes 0 (1 standard drink = 0.6 oz pur e alcohol) [facility] Utilities Answer Date Recorded In the past 12 months has [employer], gas, oil, or water company threatened [...] often do you attend chur ch or jain services? Never 10/23/2024 Do you belong to any clubs o r organizations such as rastafarian groups, unions, fraternal or athletic groups, or [...] any time in the past 12 m [facility], were you homeless or living in a senior living (including now)? No 10/23/2024 Personal Safety Answer Date Recorded Have you ever been in or are you currently in a harmful physical or emotional relationship or is someone making you feel afraid or unsafe? Denies 10/22/2024 Sex and Gender Information Value Date Recorded Sex Assigned at Not on file Legal Sex Male 7:27 PM GERIATRIC NURSE Gender Identity Not on file Sexual Orientation Not on file documented as of this encounter Miscellaneous Notes * Telephone Encounter - Yamel Cesar RN - 12/30/2024 1:30 PM CDT Left message of appointment reminder for 12/31/2024 at 8:30 a.m. this is at our [place] office location. documented in this encounter Plan of Treatment Not on file documented as of this encounter Visit Diagnoses Not on filedocumented in this encounter Care Teams Core Driller Helper Relationship Specialty Start Date End Date Mariza Carrion MD [address] [facility] [address] [place] [address] PCP - General Family Practice 03/05/23 Efren Hoyos MD Referring Physician Ophthalmology 06/16/19 Dank Hicks MD [address] [facility] [address] [place] [address] Consulting Physician Cardiology 10/11/21 documented as of this encounter
--- OUTSIDE RECORDS SUMMARY | 2024-12-30 16:56 | XMS_ITS | Clinical Summary ---
Author Organization [facility] Address [address] [place] [id number] Care Team Providers Care Chairman & Co Founder Name Role Phone Efren Hoyos MD Unavailable Dank Hicks MD Unavailable [phone] Mariza Carrion MD Primary Care Provider Allergies [...] hyperglycemia, with long-term current use of insulin ([facility]) Change sensor every 14 days [...] hyperglycemia, with long-term current use of insulin ([facility]) Use pads 5 times daily [...] 12/09/2019 Assessment & Plan (09/03/2023 9:28 AM SEISMIC ENGINEER): Chronic problem. [facility] [place]: //Saturdays. LUE fistula. Assessment & Plan (03/05/2023 9:59 AM CDT): Chronic problem. [facility] in [place]: //Saturdays. LUE fistula. ESRD on dialysis 05/22/2019 Hyperlipidemia associated with type 2 diabetes fouzia victoria 05/22/2019 Assessment & Plan (11/24/2024 10:10 AM SEISMIC ENGINEER): Chronic problem. Controlled on current Atorvastatin 20mg. Last lipid panel: 03/03/24 LDL=33, TG=75. Assessment & Plan (03/03/2024 8:45 AM CDT): Chronic problem. Controlled on current Atorvastatin 20mg. Last lipid panel: 03/05/23 LDL=57, QN=697. Will update labs today. Does not mychart. Verified phone #/address to contact re: results. Assessment & Plan (09/03/2023 9:28 AM SEISMIC ENGINEER): Chronic problem. Controlled on current Atorvastatin 20mg. Last lipid panel: 03/05/23 LDL=57, PW=140. Assessment & Plan (03/05/2023 9:53 AM CDT): Chronic problem. Controlled on current Atorvastatin 20mg. Last lipid panel: 12/05/21 LDL=36, AN=144. Will update labs today. Verified phone #/address to contact re: results. Assessment & Plan (11/02/2022 2:47 PM SEISMIC ENGINEER): Chronic, well controlled Low fat Low cholesterol [...] Lipitor Assessment & Plan (09/07/2020 2:26 PM SEISMIC ENGINEER): Goal of treatment , LDL cholesterol less [...] panel Assessment & Plan (12/09/2019 2:03 PM SEISMIC ENGINEER): Very high TG Add Vascepa Assessment & [...] statin therapy Coronary artery disease invo lving [place] coronary artery of [place] heart without angina pectoris 10/04/2017 Hx of CABG 10/04/2017 Class 2 severe obesity due t o excess calories with serious comorbidity and body mass index (BMI) of 38.0 to 38.9 in adult 05/22/2017 Assessment & Plan (10/24/2018 12:58 PM SEISMIC ENGINEER): Making progress with diet efforts. Continue Assessment & Plan (02/08/2018 11:01 AM CDT): Importance of following diet and exercising discussed. Hypertension associated with diabetes 05/22/2017 Assessment & Plan (11/24/2024 10:11 AM SEISMIC ENGINEER): Chronic problem. Controlled on current losartan 100mg daily, amlodipine 10mg daily Assessment & Plan (03/03/2024 8:45 AM CDT): Chronic problem. BP elevated upon arrival. Controlled on current Carvedilol 25mg bid, losartan 100mg daily. No changes at this time. Will update labs today. Does not mychart. Verified phone #/address to contact re: results. Assessment & Plan (09/03/2023 9:28 AM SEISMIC ENGINEER): Chronic problem. BP elevated upon arrival. Controlled [...] renal Assessment & Plan (10/24/2018 12:57 PM SEISMIC ENGINEER): Controlled. Continue current medication plan and follow up with cardiology Assessment & Plan (06/18/2018 2:30 PM CDT): BP controlled on current medication plan. Continue follow up with nephrology Assessment & Plan (02/08/2018 11:00 AM CDT): Continue same medication Assessment & Plan (12/11/2017 10:24 AM SEISMIC ENGINEER): Goal blood pressure is less than 140/85 [...] mellitus Assessment & Plan (11/24/2024 10:16 AM SEISMIC ENGINEER): Chronic problem, controlled on current regimen. A1c [...] daily for skin breakdown and infection (sees warehouse operations associate regularly). Assessment & Plan (03/03/2024 9:19 AM [...] daily for skin breakdown and infection (sees warehouse operations associate regularly). Assessment & Plan (09/03/2023 9:27 AM SEISMIC ENGINEER): Chronic problem, controlled on current regimen. A1c [...] daily for skin breakdown and infection (sees warehouse operations associate regularly). Assessment & Plan (03/05/2023 10:13 AM CDT): Chronic problem, controlled on current regimen. Current medications: Trulicity 1.5mg weekly Lantus 6 units every morning Humalog 4 units before meals For sugars over 160: take 6 units For sugars over 200: take 8 units Seen by [facility] [place] every 4-5 mos; letter sent to get [...] daily for skin breakdown and infection (sees warehouse operations associate regularly). Will update labs today. Verified phone #/address to contact re: results. Assessment & Plan (11/02/2022 2:43 PM SEISMIC ENGINEER): Well controlled, with risk of hypoglycemia Insuli [...] Ross Assessment & Plan (09/07/2020 2:26 PM SEISMIC ENGINEER): Hba1c was Lab Results Component Value Date [...] Trulicity. Assessment & Plan (12/09/2019 2:03 PM SEISMIC ENGINEER): Your Hba1c today was: Lab Results Component Value Date HGBA1C 9.3 12/09/2019 meaning a 3 month average sugar of : 224 Your goal hba1c is under 7.0 to prevent retirement diabetes complications ( eye , kidney and [...] hypoglycemia. Assessment & Plan (10/24/2018 1:00 PM SEISMIC ENGINEER): Stable BG pattern 100-140 reported since last adjustment to plan. No change today. BG goals reviewed. Advised to lower Lantus by 2 units if FBG are < 100 x 2 days/wk. For planned activity, reduce Humalog dose by 1/2 at preceding meal. Assessment & Plan (09/19/2018 11:11 AM SEISMIC ENGINEER): Your Hba1c today was: Lab Results Component Value Date HGBA1C 5.1 09/19/2018 meaning a 3 month average sugar of : 81 Your goal hba1c is under 7.0 to prevent long term acute care registered nurse diabetes complications ( eye , kidney and [...] time. Assessment & Plan (12/11/2017 10:47 AM SEISMIC ENGINEER): Hba1c was .5.4 Today, 1800 calorie, consistent [...] 05/22/2019 Assessment & Plan (09/19/2018 11:20 AM SEISMIC ENGINEER): Prevention and treatment of hypoglycemia were discussed [...] therapy Assessment & Plan (10/24/2018 12:57 PM SEISMIC ENGINEER): Check lipid panel Assessment & Plan (06/18/2018 2:31 PM CDT): Continue statin therapy Assessment & Plan (02/08/2018 11:00 AM CDT): Continue atorvastatin Assessment & Plan (12/11/2017 10:45 AM SEISMIC ENGINEER): Goal of treatment , LDL cholesterol less [...] Encounters Date Type Department Care Team Description 12/30/2024 Telephone [facility] Cardiology [address] [place] [address] [place] [phone] Dank Hicks MD 12/22/2024 Orders Only [facility] Cardiology [address] [address] [address] [place] [phone] Curt Grady MD 11/25/2024 Telephone [facility] Diabetes [facility] Endocrinology [address] [place] [phone] Bertha Pinto NP [employer] 11/25/2024 Telephone [facility] [address] [place] [phone] Bertha Pinto NP Med Management (Humalog ) 11/24/2024 11:00 AM SEISMIC ENGINEER Office Visit [facility] [address] [place] [phone] Bertha Pinto, JUAREZ Type 2 diabetes mellitus with hyperglycemia, with long-term current use of insulin (CMS/HCC) (Primary Dx); Hypertension associated with diabetes (HCC); Hyperlipidemia associated with type 2 diabetes mellitus (HCC) 11/05/2024 1:30 PM SEISMIC ENGINEER Ancillary Procedure [facility] [address] [facility] [address] [place] [phone] Cardiac pacemaker in situ; Asystole (HCC); Syncope and collapse; Symptomatic bradycardia 11/04/2024 Orders Only [facility] [address] [place] [address] [place] [phone] Dank Hicks MD Cardiac pacemaker in situ (Primary Dx); Asystole (HCC); Syncope and collapse; Symptomatic bradycardia 10/24/2024 12:58 PM SEISMIC ENGINEER Anesthesia Event [facility] [address] [place] [address] Bahman Arrington MD Sheehan, Whitney Elise, CRNA 10/24/2024 12:30 PM SEISMIC ENGINEER - 10/24/2024 2:30 PM SEISMIC ENGINEER Surgery [facility] [address] [place] [address] Darien Jamil Jr., MD LEADLESS, SINGLE CHAMBER PACEMAKER (PPM) INSERTION 10/23/2024 Orders Only [facility] [address] [place] [id number] Darien Jamil Jr., MD Syncope and collapse (Primary Dx) 10/22/2024 8:28 PM SEISMIC ENGINEER - 10/25/2024 3:09 PM SEISMIC ENGINEER Hospital Encounter [address] [address] Guru Miller MD Brother, Michele, MD Durante, Mitchell Joseph, Syncope and collapse [R55] (Primary Dx); ESRD on dialysis ([facility]) [N18.6, Z99.2]; 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, without long-term current use of insulin ([facility]) ([facility]) [E11.22, N18.6, Z99.2]; Syncope and collapse; Type 2 diabetes mellitus with hyperglycemia, with long-term current use of insulin ([facility]) [E11.65, Z79.4]; Asystole ([facility]) ([facility]) [I46.9] Discharge Disposition: Discharge to [...] mpairment Chronic kidney disease, stage III (moderate) ( C) 03/13/2014 CKD stage 3 Family History [...] drink = 0.6 oz pur e alcohol) [facility] Utilities Answer Date Recorded In the past 12 months has [employer] [employer] gas, oil, or water [employer] threatened to shut off services in your [...] often do you attend chur ch or confucianism services? Never 10/23/2024 Do you belong to any clubs o r organizations such as mu-ism groups, unions, fraternal or athletic groups, or [...] any time in the past 12 m [facility], were you homeless or living in a fpc (including now)? No 10/23/2024 Personal Safety Answer Date Recorded Have you ever been in or are you currently in a harmful physical or emotional relationship or is someone making you feel afraid or unsafe? Denies 10/22/2024 Sex and Gender Information Value Date Recorded Sex Assigned at Not on file Legal Sex Male 7:27 PM SEISMIC ENGINEER Gender Identity Not on file Sexual Orientation Not on file Obstetrics History Last Filed Vital Signs Vital Sign Reading Time Taken Comments Blood Pressure 102/58 11/24/2024 9:58 AM SEISMIC ENGINEER Pulse 75 11/24/2024 9:58 AM SEISMIC ENGINEER Temperature 36.3 C (97.3 F) 10/25/2024 2:15 PM SEISMIC ENGINEER Respiratory Rate 20 11/24/2024 9:58 AM SEISMIC ENGINEER Oxygen Saturation 100% 10/25/2024 1:15 PM SEISMIC ENGINEER Inhaled Oxygen Concentration - - Weight 91.3 kg (201 lb 4.5 oz) 10/22/2024 8:29 P M SEISMIC ENGINEER Height 170.2 cm (5' 7.01 ) 11/24/2024 9:58 AM CS T Body Mass Index 31.52 10/22/2024 8:29 PM SEISMIC ENGINEER Plan of Treatment Health Maintenance Due Date [...] 10/23/2024, 022 Medical Devices Implanted Type Area Photographer Apprentice Device Identifier Shelf Expiration Date Model / Serial / Lot [employer]onic [employer] Micra 2 Av Synchronous Leadless Ventricular Pacemaker [id number] - [id number] - [id number] Implanted:Qty: 1 on 10/24/2024 by Darien Jamil Jr., MD at [facility] [employer] 02/16/2026 [id number] / [id number] / Procedures Procedure Name Priority Date/Time Associated Diagnosis Comments CARDIOLOGY DOCUMENT SCAN Routine 12/10/2024 10:59 AM SEISMIC ENGINEER POCT GLUCOSE Routine 11/24/2024 10:01 AM SEISMIC ENGINEER Type 2 diabetes mellitus with hyperglycemia, with long-term current use of insulin (CMS/HCC) POCT HEMOGLOBIN A1C Routine 11/24/2024 1 0:01 AM SEISMIC ENGINEER Type 2 diabetes mellitus with hyperglycemia, with long-term current use of insulin (CMS/HCC) DEVICE CHECK - IN OFFICE Routine 11/05/2024 1:22 PM SEISMIC ENGINEER Cardiac pacemaker in situ Asystole (HCC) Syncope and collapse Symptomatic bradycardia POCT GLUCOSE DEVICE Routine 10/25/2024 1 2:56 PM SEISMIC ENGINEER POCT GLUCOSE DEVICE Routine 10/25/2024 8 :10 AM SEISMIC ENGINEER POCT GLUCOSE DEVICE Routine 10/25/2024 7 :43 AM SEISMIC ENGINEER EGFR Routine 10/25/2024 5:48 AM SEISMIC ENGINEER BASIC METABOLIC PANEL Routine 10/25/2024 5:48 AM SEISMIC ENGINEER CBC WITHOUT DIFFERENTIAL Routine 10/25/2024 5:48 AM SEISMIC ENGINEER POCT GLUCOSE DEVICE Routine 10/25/2024 2 :25 AM SEISMIC ENGINEER POCT GLUCOSE DEVICE Routine 10/24/2024 8 :31 PM SEISMIC ENGINEER POCT GLUCOSE DEVICE Routine 10/24/2024 4 :33 PM SEISMIC ENGINEER POCT GLUCOSE DEVICE Routine 10/24/2024 2 :03 PM SEISMIC ENGINEER LEADLESS, SINGLE CHAMBER PACEMAKER (PPM) INSERTION Routine 10/24/2024 1:36 PM SEISMIC ENGINEER Syncope and collapse POCT GLUCOSE DEVICE Routine 10/24/2024 1 1:26 AM SEISMIC ENGINEER POCT GLUCOSE DEVICE Routine 10/24/2024 7 :30 AM SEISMIC ENGINEER TSH Routine 10/24/2024 5:12 AM SEISMIC ENGINEER EGFR Routine 10/24/2024 4:59 AM SEISMIC ENGINEER BASIC METABOLIC PANEL Routine 10/24/2024 4:59 AM SEISMIC ENGINEER CBC WITHOUT DIFFERENTIAL Routine 10/24/2024 4:59 AM SEISMIC ENGINEER POCT GLUCOSE DEVICE Routine 10/24/2024 2 :39 AM SEISMIC ENGINEER POCT GLUCOSE DEVICE Routine 10/23/2024 1 0:25 PM SEISMIC ENGINEER POCT GLUCOSE DEVICE Routine 10/23/2024 8 :04 PM SEISMIC ENGINEER POCT GLUCOSE DEVICE Routine 10/23/2024 5 :42 PM SEISMIC ENGINEER HEPATITIS B SURFACE ANTIBODY (IMMUNE STATUS) Routine 10/23/2024 2:45 PM SEISMIC ENGINEER HEPATITIS PANEL, ACUTE Routine 10/23/2024 2:45 PM SEISMIC ENGINEER POCT GLUCOSE DEVICE Routine 10/23/2024 1 2:57 PM SEISMIC ENGINEER HEMODIALYSIS Routine 10/23/2024 9:13 AM SEISMIC ENGINEER POCT GLUCOSE DEVICE Routine 10/23/2024 7 :47 AM SEISMIC ENGINEER EGFR Routine 10/23/2024 5:27 AM SEISMIC ENGINEER DIFFERENTIAL AUTO Routine 10/23/2024 5:2 7 AM SEISMIC ENGINEER MAGNESIUM Routine 10/23/2024 5:27 AM SEISMIC ENGINEER PHOSPHORUS Routine 10/23/2024 5:27 AM SEISMIC ENGINEER COMPREHENSIVE METABOLIC PANEL Routine 10/23/2024 5:27 AM SEISMIC ENGINEER CBC WITH AUTO DIFFERENTIAL Routine 10/23/2024 5:27 AM SEISMIC ENGINEER POCT GLUCOSE DEVICE Routine 10/23/2024 3 :04 AM SEISMIC ENGINEER POCT GLUCOSE DEVICE Routine 10/22/2024 1 0:42 PM SEISMIC ENGINEER POCT GLUCOSE DEVICE Routine 10/22/2024 8 :42 PM SEISMIC ENGINEER HM DIABETES EYE EXAM Routine 08/13/2024 9:40 AM CDT ALBUMIN CREATININE RATIO, URINE Routine 03/10/2024 8:46 AM CDT Type 2 diabetes mellitus with hyperglycemia, with long-term current use of insulin ([facility]/HCC) LIPID PANEL Routine 03/03/2024 9:29 AM CDT Type 2 diabetes mellitus with hyperglycemia, with long-term current use of insulin (CMS/[facility]) Hyperlipidemia associated with type 2 diabetes mellitus (HCC) CT ABDOMEN PELVIS WO CONTRAST Schedule Routine, Read Routine (OP Routine) 12/05/2021 11:53 AM SEISMIC ENGINEER End stage renal disease (HCC) from Last 3 Months or Most Recently Relevant to Health Maintenance Results * Cardiology Document Scan (12/10/2024 10:59 AM SEISMIC ENGINEER) Anatomical Region Laterality Modality Other Curt Grady MD CV CARDIAC SERVICES PRO CEDURES Final Result * POCT hemoglobin A1c (11/24/2024 10:01 AM SEISMIC ENGINEER) Hemoglobin A1C, POC 4.9 4.0 - 5.6 % Blood 11/24/2024 10:0 1 AM SEISMIC ENGINEER us Bertha Pinto NP POINT OF CARE TEST ORDERA BLES Final Result * (ABNORMAL) POCT glucose (11/24/2024 10:01 AM SEISMIC ENGINEER) Glucose Blood, POC 131 mg/dL Blood 11/24/2024 10:0 1 AM SEISMIC ENGINEER us Bertha Pinto NP POINT OF CARE TEST ORDERA BLES Final Result * DEVICE CHECK - IN OFFICE (11/05/2024 1:22 PM SEISMIC ENGINEER) Anatomical Region Laterality Modality Other Narrative 11/13/2024 2:43 PM SEISMIC ENGINEER Medtronic Micra AV2 Pacemaker. Dx; Symptomatic Bradycardia, [...] Result * POCT glucose (10/25/2024 12:56 PM SEISMIC ENGINEER) Glucose, POC 74 70 - 199 mg/dL Blood 10/25/2024 12:5 6 PM SEISMIC ENGINEER 10/25/2024 12:56 PM SEISMIC ENGINEER Nabeel Stantonnte LAB POCT ORDERABLES - DEVICE Final Result Performing Organization Address [facility] Co de Phone Number NIDIA [address] [employer] [place] [address] * POCT glucose (10/25/2024 8:10 AM SEISMIC ENGINEER) [facility] Glucose, POC 100 70 - 199 mg/dL Blood 10/25/2024 8:10 AM SEISMIC ENGINEER 10/25/2024 8:10 AM SEISMIC ENGINEER [facility] POCT ORDERABLES - DEVICE Final Result Performing Organization Address [facility] de Phone Number NIDIA [address] [employer] [place] [address] * POCT glucose (10/25/2024 7:43 AM SEISMIC ENGINEER) [facility] Glucose, POC 78 70 - 199 mg/dL Blood 10/25/2024 7:43 AM SEISMIC ENGINEER 10/25/2024 7:43 AM SEISMIC ENGINEER [facility] POCT ORDERABLES - DEVICE Final Result Performing Organization Address [facility] de Phone Number ALYSSAALANNAH [address] [facility] [employer] [place] [address] * (ABNORMAL) eGFR (10/25/2024 5:48 AM SEISMIC ENGINEER) [facility] eGFR 9(L) >=60 mL/min/1. 73 m2 Comment: [...] last reviewed 2021. Blood 10/25/2024 5:48 AM SEISMIC ENGINEER 10/25/2024 6:03 AM SEISMIC ENGINEER us Raisa Scherer NP LAB BLOOD ORDERABLES Jeaneth mari Result [facility] [address] Department [place] [address] * (ABNORMAL) CBC without differential (10/25/2024 5:48 AM SEISMIC ENGINEER) WBC 4.6 3.8 - 9.9 K/cumm Hgb 8.3(L) 13.0 - 17.5 g/dL [facility] Hct 28.1(L) 38.9 - 50.3 % [facility] Plt 187 150 - 400 K/cumm [facility] MPV 10.6 9.1 - 12.3 fL [facility] RBC 2.82(L) 4.30 - 5.80 M/cumm [facility] MCV 99.6(H) 81.3 - 96.4 fL [facility] MCH 29.4 27.1 - 33.3 pg [facility] MCHC 29.5(L) 32.3 - 35.7 g/dL [facility] RDW CV 16.3(H) 11.1 - 14.9 % [facility] RDW SD 60.4(H) 35.7 - 48.1 fL [facility] NRBC abs 0.00 0.00 - 0.01 K/cumm [facility] Blood 10/25/2024 5:48 AM SEISMIC ENGINEER 10/25/2024 6:03 AM SEISMIC ENGINEER Raisa Scherer NP LAB BLOOD ORDERABLES Jeaneth l Result NIDIA [address] Department [place] [address] * (ABNORMAL) Basic metabolic panel (10/25/2024 5:48 AM SEISMIC ENGINEER) Pathologist [facility] Sodium 135 135 - 145 mmol/L Potassium, pl 4.3 3.3 - 4.9 mmol/L [facility] Chloride 93(L) 97 - 110 mmol/L [facility] CO2 27 22 - 32 mmol/L [facility] Anion gap 15 2 - 15 mmol/L [facility] BUN 30(H) 6 - 25 mg/dL [facility] Creatinine 5.94(H) 0.80 - 1.30 mg/dL [facility] Glucose 76 70 - 199 mg/dL [facility] Comment: Interpretive Data Fasting [...] 2022. Calcium 8.8 8.5 - 10.3 mg/dL [facility] Blood 10/25/2024 5:48 AM SEISMIC ENGINEER 10/25/2024 6:03 AM SEISMIC ENGINEER Raisa Scherer NP LAB BLOOD ORDERABLES Jeaneth l Result Performing Organization Address City/[facility]/ZIP Co de Phone Number [facility] [address] Department of [employer] [place] [address] * POCT glucose (10/25/2024 2:25 AM SEISMIC ENGINEER) Glucose, POC 81 70 - 199 mg/dL Blood 10/25/2024 2:25 AM SEISMIC ENGINEER 10/25/2024 2:25 AM SEISMIC ENGINEER Result [facility] Richard [facility] POCT ORDERABLES - DEVICE Final Result Performing Organization Address [facility] de Phone Number NIDIA [address] [facility] [employer] [place] [address] * POCT glucose (10/24/2024 8:31 PM SEISMIC ENGINEER) Glucose, POC 120 70 - 199 mg/dL Blood 10/24/2024 8:31 PM SEISMIC ENGINEER 10/24/2024 8:31 PM SEISMIC ENGINEER [facility] Richard [facility] POCT ORDERABLES - DEVICE Final Result Performing Organization Address [facility] de Phone Number NIDIA [address] [facility] [employer] [place] [address] * POCT glucose (10/24/2024 4:33 PM SEISMIC ENGINEER) Glucose, POC 85 70 - 199 mg/dL Blood 10/24/2024 4:33 PM SEISMIC ENGINEER 10/24/2024 4:33 PM SEISMIC ENGINEER [facility] POCT ORDERABLES - DEVICE Final Result Performing Organization Address [facility] de Phone Number [facility] [place] [address] [facility] [employer] [place] [address] * POCT glucose (10/24/2024 2:03 PM SEISMIC ENGINEER) Glucose, POC 83 70 - 199 mg/dL Blood 10/24/2024 2:03 PM SEISMIC ENGINEER 10/24/2024 2:03 PM SEISMIC ENGINEER us Nabeel Richard Philippe DO LAB POCT ORDERABLES - DEVICE Final Result Performing Organization Address [facility] Co de Phone Number NIDIA COTE [address] [facility] [employer] [place] [address] * POCT glucose (10/24/2024 11:26 AM SEISMIC ENGINEER) Glucose, POC 85 70 - 199 mg/dL Blood 10/24/2024 11:2 6 AM SEISMIC ENGINEER 10/24/2024 11:26 AM SEISMIC ENGINEER Nabeel Paez LAB POCT ORDERABLES - DEVICE Final Result Performing Organization Address [facility] de Phone Number NIDIA C[place] [address] [facility] [employer] [place] [address] * POCT glucose (10/24/2024 7:30 AM SEISMIC ENGINEER) Glucose, POC 94 70 - 199 mg/dL Blood 10/24/2024 7:30 AM SEISMIC ENGINEER 10/24/2024 7:30 AM SEISMIC ENGINEER Nabeel Ramos Philippe [facility] POCT ORDERABLES - DEVICE Final Result Performing Organization Address [facility] [place] [address] [address] Department [employer] [place] [address] * TSH (10/24/2024 5:12 AM SEISMIC ENGINEER) Thyroid Stimulating Hormone 0.48 0.30 - 4.20 mcIUnit/mL Blood 10/24/2024 5:12 AM SEISMIC ENGINEER 10/24/2024 5:23 AM SEISMIC ENGINEER Sherrill Christianson MD LAB BLOOD ORDERABLES Final Result Performing Organization Address [facility] [place] [address] [facility] [employer] [place] [address] * (ABNORMAL) eGFR (10/24/2024 4:59 AM SEISMIC ENGINEER) eGFR 13(L) >=60 mL/min/1. 73 m2 Comment: [...] last reviewed 2021. Blood 10/24/2024 4:59 AM SEISMIC ENGINEER 10/24/2024 5:23 AM SEISMIC ENGINEER us Raisa Scherer NP LAB BLOOD ORDERABLES Jeaneth mari Result [facility] [address] Department [place] [address] * (ABNORMAL) CBC without differential (10/24/2024 4:59 AM SEISMIC ENGINEER) Pathologist [facility] WBC 5.1 3.8 - 9.9 K/cumm Hgb 8.9(L) 13.0 - 17.5 g/dL [facility] Hct 29.9(L) 38.9 - 50.3 % [facility] Plt 188 150 - 400 K/cumm [facility] MPV 10.2 9.1 - 12.3 fL [facility] RBC 2.93(L) 4.30 - 5.80 M/cumm [facility] MCV 102.0(H) 81.3 - 96.4 fL [facility] MCH 30.4 27.1 - 33.3 pg [facility] MCHC 29.8(L) 32.3 - 35.7 g/dL [facility] RDW CV 16.8(H) 11.1 - 14.9 % [facility] RDW SD 62.6(H) 35.7 - 48.1 fL [facility] NRBC abs 0.00 0.00 - 0.01 K/cumm [facility] Blood 10/24/2024 4:59 AM SEISMIC ENGINEER 10/24/2024 5:20 AM SEISMIC ENGINEER Raisa Scherer NP LAB BLOOD ORDERAB[place] [address] Department [place] [address] * (ABNORMAL) Basic metabolic panel (10/24/2024 4:59 AM SEISMIC ENGINEER) Sodium 136 135 - 145 mmol/L Potassium, pl 4.2 3.3 - 4.9 mmol/L [facility] Chloride 94(L) 97 - 110 mmol/L [facility] CO2 31 22 - 32 mmol/L [facility] Anion gap 11 2 - 15 mmol/L [facility] BUN 20 6 - 25 mg/dL [facility] Creatinine 4.30(H) 0.80 - 1.30 mg/dL [facility] Glucose 80 70 - 199 mg/dL [facility] [...] 2022. Calcium 9.1 8.5 - 10.3 mg/dL [facility] Blood 10/24/2024 4:59 AM SEISMIC ENGINEER 10/24/2024 5:20 AM SEISMIC ENGINEER Raisa Scherer NP LAB BLOOD ORDERABLES Jeaneth l Result [facility] COTE [address] [facility] [employer] [place] [address] * POCT glucose (10/24/2024 2:39 AM SEISMIC ENGINEER) Glucose, POC 123 70 - 199 mg/dL Blood 10/24/2024 2:39 AM SEISMIC ENGINEER 10/24/2024 2:39 AM SEISMIC ENGINEER Nabeel Paez LAB POCT ORDERABLES - DEVICE Final Result Performing Organization Address [facility] Co de Phone Number [facility] COTE [address] [facility] [employer] [place] [address] * POCT glucose (10/23/2024 10:25 PM SEISMIC ENGINEER) Glucose, POC 173 70 - 199 mg/dL Blood 10/23/2024 10:2 5 PM SEISMIC ENGINEER 10/23/2024 10:25 PM SEISMIC ENGINEER Nabeel HERRING POCT ORDERABLES - DEVICE Final Result Performing Organization Address [facility] Co de Phone Number [facility] COTE [address] [facility] [employer] [place] [address] * POCT glucose (10/23/2024 8:04 PM SEISMIC ENGINEER) Glucose, POC 70 70 - 199 mg/dL Blood 10/23/2024 8:04 PM SEISMIC ENGINEER 10/23/2024 8:04 PM SEISMIC ENGINEER Nabeel Paez LAB POCT ORDERABLES - DEVICE Final Result Performing Organization Address [facility] Co de Phone Number [facility] COTE [address] [facility] [employer] [place] [address] * POCT glucose (10/23/2024 5:42 PM SEISMIC ENGINEER) Glucose, POC 90 70 - 199 mg/dL Blood 10/23/2024 5:42 PM SEISMIC ENGINEER 10/23/2024 5:42 PM SEISMIC ENGINEER Nabeel Paez DO LAB POCT ORDERABLES - DEVICE Final Result Performing Organization Address [facility] Co de Phone Number [facility] COTE [address] [address] Department of [employer] [place] [address] * Hepatitis panel, acute Blood (10/23/2024 2:45 PM SEISMIC ENGINEER) Pathologist [facility] Hep A IgM Nonreactive Nonreactive Comment: Interpretive Data: If Hep A IgM Ab is reported as Equivocal, a new sample should be drawn in two weeks for testing. Current interpretive data was last revised on 20. Hep B core IgM Nonreactive Nonreactive [facility] Comment: Interpretive Data If HepB Core IgM Ab is reported as Equivocal, a new sample should be drawn in two weeks for testing. Current interpretive data was last revised on 20. Hep C Ab Nonreactive Nonreactive [facility] Comment: Interpretive Data Nonreactive: [...] last revised on 2020. HepBsAg Nonreactive Nonreactive [facility] Blood 10/23/2024 2:45 PM SEISMIC ENGINEER 10/23/2024 2:46 PM SEISMIC ENGINEER Sherrill Christianson MD LAB MICROBIOLOGY - GENERAL ORDERABLES Final Result Performing Organization Address [facility] Co de Phone Number [facility] COTE [address] [address] Department [facility] [place] [address] * Hepatitis B surface antibody (immune status) Blood (10/23/2024 2:45 PM SEISMIC ENGINEER) Pathologist [facility] HBsAb (immune status) Nonreactive Comment: Interpretive Data [...] revised on 20. Blood 10/23/2024 2:45 PM SEISMIC ENGINEER 10/23/2024 2:46 PM SEISMIC ENGINEER us Sherrill Christianson MD LAB MICROBIOLOGY - GENERAL ORDERABLES Final Result Performing Organization Address City/[facility]/ZIP Co de Phone Number NIDIA COTE [address] [address] Department [employer] [place] [address] * (ABNORMAL) POCT glucose (10/23/2024 12:57 PM SEISMIC ENGINEER) Glucose, POC 69(L) 70 - 199 mg/dL Blood 10/23/2024 12:5 7 PM SEISMIC ENGINEER 10/23/2024 12:57 PM SEISMIC ENGINEER us Nabeel Paez DO LAB POCT ORDERABLES - DEVICE Final Result Performing Organization Address [facility] Co de Phone Number [facility] COTE [address] [address] Department of [employer] [place] [address] * POCT glucose (10/23/2024 7:47 AM SEISMIC ENGINEER) Glucose, POC 81 70 - 199 mg/dL Blood 10/23/2024 7:47 AM SEISMIC ENGINEER 10/23/2024 7:47 AM SEISMIC ENGINEER Sylvester Engel MD LAB POCT ORDERABLES - DEVICE Final Result Performing Organization Address City/[facility] Co de Phone Number [facility] COTE [address] [address] Department of [employer] [place] [address] * (ABNORMAL) eGFR (10/23/2024 5:27 AM SEISMIC ENGINEER) eGFR 11(L) >=60 mL/min/1. 73 m2 Comment: [...] last reviewed 2021. Blood 10/23/2024 5:27 AM SEISMIC ENGINEER 10/23/2024 5:32 AM SEISMIC ENGINEER us Raisa Scherer NP LAB BLOOD ORDERABLES Jeaneth l Result [facility] [address] [address] Department [place] [address] * (ABNORMAL) Differential, auto (10/23/2024 5:27 AM SEISMIC ENGINEER) Pathologist [facility] Neutrophil abs 4.1 1.5 - 6.5 K/cumm Imm gran abs 0.1 0.0 - 0.1 K/cumm [facility] Lymphocyte abs 0.4(L) 0.8 - 3.3 K/cumm [facility] Monocyte abs 0.7 0.2 - 0.8 K/cumm [facility] Eosinophil abs 0.1 0.0 - 0.5 K/cumm [facility] Basophil abs 0.0 0.0 - 0.1 K/cumm [facility] Neutrophil pct 76.5 % [facility] Comment: Interpretive Data Percent cell count reference ranges are not reported, since discordance with absolute values may lead to misinterpretation of CBC data. Current Interpretive Data was last revised on 2018. Imm gran pct 1.1 % [facility] Comment: Interpretive Data Percent cell count reference ranges are not reported, since discordance with absolute values may lead to misinterpretation of CBC data. Current Interpretive Data was last revised on 2018. Lymphocyte pct 7.9 % [facility] Comment: Interpretive Data Percent cell count reference ranges are not reported, since discordance with absolute values may lead to misinterpretation of CBC data. Current Interpretive Data was last revised on 2018. Monocyte pct 12.7 % [facility] Comment: Interpretive Data Percent cell count reference ranges are not reported, since discordance with absolute values may lead to misinterpretation of CBC data. Current Interpretive Data was last revised on 2018. Eosinophil pct 1.1 % [facility] Comment: Interpretive Data Percent cell count reference ranges are not reported, since discordance with absolute values may lead to misinterpretation of CBC data. Current Interpretive Data was last revised on 2018. Basophil pct 0.7 % [facility] Comment: Interpretive Data Percent cell count reference ranges are not reported, since discordance with absolute values may lead to misinterpretation of CBC data. Current Interpretive Data was last revised on 2018. Blood 10/23/2024 5:27 AM SEISMIC ENGINEER 10/23/2024 5:30 AM SEISMIC ENGINEER us Raisa Scherer JUNIOR NETWORK ADMINISTRATOR LAB BLOOD ORDERABLES Jeaneth mari Result [facility] [address] [address] Department [place] [address] * (ABNORMAL) CBC with auto differential (10/23/2024 5:27 AM SEISMIC ENGINEER) WBC 5.3 3.8 - 9.9 K/cumm Hgb 8.8(L) 13.0 - 17.5 g/dL [facility] Hct 28.9(L) 38.9 - 50.3 % [facility] Plt 179 150 - 400 K/cumm [facility] MPV 10.4 9.1 - 12.3 fL [facility] RBC 2.86(L) 4.30 - 5.80 M/cumm [facility] MCV 101.0(H) 81.3 - 96.4 fL [facility] 30.8 27.1 - 33.3 pg [facility] MCHC 30.4(L) 32.3 - 35.7 g/dL [facility] RDW CV 17.2(H) 11.1 - 14.9 % [facility] RDW SD 63.7(H) 35.7 - 48.1 fL [facility] NRBC abs 0.00 0.00 - 0.01 K/cumm [facility] Blood 10/23/2024 5:27 AM SEISMIC ENGINEER 10/23/2024 5:30 AM SEISMIC ENGINEER Raisa Scherer JUNIOR NETWORK ADMINISTRATOR LAB BLOOD ORDERABLES Jeaneth l Result Performing Organization Address City/[facility] Co de Phone Number [facility] [address] [facility] [employer] [place], [place] [id number] * Phosphorus (10/23/2024 5:27 AM SEISMIC ENGINEER) Phosphorus, pl 4.5 2.3 - 4.5 mg/dL Blood 10/23/2024 5:27 AM SEISMIC ENGINEER 10/23/2024 5:30 AM SEISMIC ENGINEER Raisa Scherer JUNIOR NETWORK ADMINISTRATOR LAB BLOOD ORDERABLES Jeaneth l Result Performing Organization Address City/[facility] Co de Phone Number [facility] [address] [facility] [employer] [place] [address] * Magnesium (10/23/2024 5:27 AM SEISMIC ENGINEER) Magnesium 2.1 1.4 - 2.5 mg/dL Blood 10/23/2024 5:27 AM SEISMIC ENGINEER 10/23/2024 5:30 AM SEISMIC ENGINEER Raisa Scherer JUNIOR NETWORK ADMINISTRATOR LAB BLOOD ORDERABLES Jeaneth l Result Performing Organization Address City/[facility]/ZIP Co de Phone Number [facility] [address] [facility] [employer] [place] [address] * (ABNORMAL) Comprehensive metabolic panel (10/23/2024 5:27 AM SEISMIC ENGINEER) Sodium 137 135 - 145 mmol/L Potassium, [...] Units/L [facility] Blood 10/23/2024 5:27 AM SEISMIC ENGINEER 10/23/2024 5:30 AM SEISMIC ENGINEER us Raisa Scherer JUNIOR NETWORK ADMINISTRATOR LAB BLOOD ORDERABLES Jeaneth mari Result [facility] [address] [address] Department [place] [address] * POCT glucose (10/23/2024 3:04 AM SEISMIC ENGINEER) Glucose, POC 84 70 - 199 mg/dL Blood 10/23/2024 3:04 AM SEISMIC ENGINEER 10/23/2024 3:04 AM SEISMIC ENGINEER Result [facility] Sylvester Engel MD LAB POCT ORDERABLES - DEVICE Final Result Performing Organization Address [facility] de Phone Number NIDIA [address] [facility] [employer] [place] [address] * POCT glucose (10/22/2024 10:42 PM SEISMIC ENGINEER) Glucose, POC 101 70 - 199 mg/dL Blood 10/22/2024 10:4 2 PM SEISMIC ENGINEER 10/22/2024 10:42 PM SEISMIC ENGINEER Result [facility] Sylvester Engel MD LAB POCT ORDERABLES - DEVICE Final Result Performing Organization Address [facility] [place] [address] [address] Department [employer] [place] [address] * POCT glucose (10/22/2024 8:42 PM SEISMIC ENGINEER) Glucose, POC 114 70 - 199 mg/dL Blood 10/22/2024 8:42 PM SEISMIC ENGINEER 10/22/2024 8:42 PM SEISMIC ENGINEER Result [facility] Guru Miller MD LAB POCT ORDERABLES - DEVICE Final Result Performing Organization Address [facility] [place] [address] [facility] [employer] [place] [address] * (ABNORMAL) DIABETES EYE EXAM (08/13/2024 9:40 AM CDT) Result [facility] Karin Dc MD HEALTH MAINTENANCE Edited Result - Final * (ABNORMAL) Albumin Creatinine Ratio, Urine (03/10/2024 8:46 AM CDT) Albumin Ur 3,169.5 mg/L Comment: Interpretive Data No reference range established. Current interpretive data was last revised 2019. Creatinine Ur 47.7 mg/dL [facility] Comment: Interpretive Data No reference range established. Current interpretive data was last revised 2019. Albumin Creatinine Ratio, Ur 6,645(H) 1 - 29 mg/g [facility] Urine 03/10/2024 8:46 AM CDT 03/11/2024 9:11 AM CDT us Bertha Pinto NP LAB URINE ORDERABLES Jeaneth l Result [facility]IA [address] Department [place] [address] * (ABNORMAL) Lipid panel (03/03/2024 9:29 AM [...] 03/03/2024 4:40 PM CDT us Bertha Pinto JUNIOR NETWORK ADMINISTRATOR LAB BLOOD ORDERABLES Jeaneth l Result [facility] [place]OTE [address] [address] Department [place] [address] * CT Abdomen Pelvis WO Contrast (12/05/2021 11:53 AM SEISMIC ENGINEER) Anatomical Region Laterality Modality Body N/A Computed Tomogra phy 12/05/2021 12:0 4 PM SEISMIC ENGINEER Impressions 12/05/2021 12:04 PM SEISMIC ENGINEER Bone windows show no suspicious lytic or blastic lesions. IMPRESSION: 1. 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 2. 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 Electronically signed by: Ryan Cameron M.D. Narrative 12/05/2021 12:04 PM SEISMIC ENGINEER EXAMINATION: Computed tomography of the abdomen/pelvis without [...] adeniform shape. 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 Adjacent fat stranding is likely related [...] adeniform shape. 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 Adjacent fat stranding is likely related [...] Recently Relevant to Health Maintenance Insurance MEDICARE PayLease Member Subscriber Plan / Payer ( fective 2021-Present) Name:Brandie Morrissey Jr. Relation to Subscriber:Self Name:Brandie Morrissey Jr. Payer ID:[id number] (NAIC) Group ID:[id number] Type: Address: [place] [id number] MEDICARE MEDICARE FOR LIFE Care Teams Chairman & Co Founder Relationship Specialty Start Date End Date Mariza Carrion MD [address] [facility] [address] [place] [address] PCP - General Family Practice 03/05/23 Efren Hoyos MD Referring Physician Ophthalmology 06/16/19 Dank Hicks MD [address] [place], [place] [id number] Consulting Physician Cardiology 10/11/21
--- OUTSIDE RECORDS SUMMARY | 2024-12-30 16:56 | XMS_ITS | Referral Summary ---
Author Organization [facility] Address [address] [place] [address] Care Team Providers Care Finisher Operator Name Role Phone Efren Hoyos MD Unavailable Dank Hicks MD Unavailable [phone] Mariza Carrion MD Primary Care Provider Encounters Date Type Department Care Team Description 12/30/2024 Telephone [facility] Medical [facility] Cardiology [address] [facility] [address] [place] [phone] Dank Hicks MD 12/22/2024 Orders Only [facility] Medical [facility] Cardiology [address] [facility] [address] [place] [phone] Curt Grady MD 11/25/2024 Telephone [facility] Medical [facility] Diabetes and Endocrinology [address] [place] [phone] Bertha Pinto NP [facility] 11/25/2024 Telephone [facility] Diabetes and Endocrinology [address] [place] [phone] Bertha Pinto NP Med Management (Humalog ) 11/24/2024 11:00 AM FILLER FEEDER Office Visit [facility] Medical [facility] Diabetes and Endocrinology [address] [place] [phone] Schleeper, Bertha R., AIR QUALITY CHEMIST Type 2 diabetes mellitus with hyperglycemia, with long-term current use of insulin (CMS/HCC) (Primary Dx); Hypertension associated with diabetes (HCC); Hyperlipidemia associated with type 2 diabetes mellitus (HCC) 11/05/2024 1:30 PM FILLER FEEDER Ancillary Procedure [facility] Medical Group Cardiology [address] [place] [address] Cardiac pacemaker in situ; Asystole (HCC); Syncope and collapse; Symptomatic bradycardia 11/04/2024 Orders Only [facility] Medical [facility] Cardiology [address] [facility] [address], [place] [address] Dank Hicks MD Cardiac pacemaker in situ (Primary Dx); Asystole (HCC); Syncope and collapse; Symptomatic bradycardia 10/22/2024 8:28 PM FILLER FEEDER - 10/25/2024 3:09 PM FILLER FEEDER Hospital Encounter [address] [address] Guru Miller MD Brother, Michele, MD Durante, Mitchell Joseph, DO Syncope and collapse [R55] (Primary Dx); ESRD on dialysis (HCC) [N18.6, Z99.2]; 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, without long-term current use of insulin (CMS/HCC) (HCC) [E11.22, N18.6, Z99.2]; Syncope and collapse; Type 2 diabetes mellitus with hyperglycemia, with long-term current use of insulin (HCC) [E11.65, Z79.4]; Asystole (CMS/HCC) ([facility]) [I46.9] Discharge Disposition: Discharge to home or self care 10/24/2024 12:58 PM FILLER FEEDER Anesthesia Event [facility] Cardiac Catheterization Lab [address] [place] [address] Bahman Arrington MD Sheehan, Whitney Elise, CRNA 10/24/2024 12:30 PM FILLER FEEDER - 10/24/2024 2:30 PM FILLER FEEDER Surgery [facility] Cardiac Catheterization Lab [address] [place] [id number] Darien Jamil Jr., MD LEADLESS, SINGLE CHAMBER PACEMAKER (PPM) INSERTION 10/23/2024 Orders Only [facility] Cardiac Catheterization Lab [address] [place] [address] Darien Jamil Jr., MD Syncope and collapse [...] with long-term current use of insulin ([facility]) Use to test glucose 5 times daily 450 each 2 04/03/20 18 Active lancets (freestyle) 28 gauge miscIndications:T ype 2 diabetes mellitus with hyperglycemia, with long-term current use of insulin ([facility]) Use to test glucose 5 times daily [...] with long-term current use of insulin ([facility]) Change sensor every 14 days 9 kit [...] with long-term current use of insulin ([facility]) Use pads 5 times daily 200 each [...] with long-term current use of insulin ([facility]) Inject 0.5ML(1.5MG total) under the skin every 7 days 6 mL 3 11/24/19 25 Active LANTUS 100 unit/mL (3 mL) pen for injectionIndicati ons:type 2 diabetes mellitus Inject 4 Units under the skin daily 15 mL 11/24/19 25 026 Active pen needle, diabetic (BD Ruma 2nd Gen Pen Needle) 32 gauge x 532 needleIndications :Type 2 diabetes mellitus with hyperglycemia, with long-term current use of insulin ([facility]) Use to inject insulin 4x/day 350 each [...] 12/09/2019 Assessment & Plan (09/03/2023 9:28 AM FILLER FEEDER): Chronic problem. [facility] in [place]: //Saturdays. LUE fistula. Assessment & Plan (03/05/2023 9:59 AM CDT): Chronic problem. HD [facility] in [place]: //Saturdays. LUE fistula. ESRD on dialysis 05/22/2019 Hyperlipidemia associated with type 2 diabetes fouzia victoria 05/22/2019 Assessment & Plan (11/24/2024 10:10 AM FILLER FEEDER): Chronic problem. Controlled on current Atorvastatin 20mg. Last lipid panel: 03/03/24 LDL=33, TG=75. Assessment & Plan (03/03/2024 8:45 AM CDT): Chronic problem. Controlled on current Atorvastatin 20mg. Last lipid panel: 03/05/23 LDL=57, NB=786. Will update labs today. Does not mychart. Verified phone #/address to contact re: results. Assessment & Plan (09/03/2023 9:28 AM FILLER FEEDER): Chronic problem. Controlled on current Atorvastatin 20mg. Last lipid panel: 03/05/23 LDL=57, YT=289. Assessment & Plan (03/05/2023 9:53 AM CDT): Chronic problem. Controlled on current Atorvastatin 20mg. Last lipid panel: 12/05/21 LDL=36, MQ=734. Will update labs today. Verified phone #/address to contact re: results. Assessment & Plan (11/02/2022 2:47 PM FILLER FEEDER): Chronic, well controlled Low fat Low cholesterol [...] Lipitor Assessment & Plan (09/07/2020 2:26 PM FILLER FEEDER): Goal of treatment , LDL cholesterol less [...] panel Assessment & Plan (12/09/2019 2:03 PM FILLER FEEDER): Very high TG Add Vascepa Assessment & [...] statin therapy Coronary artery disease invo lving pokagon coronary artery of pokagon heart without angina pectoris 10/04/2017 Hx of CABG 10/04/2017 Class 2 severe obesity due t o excess calories with serious comorbidity and body mass index (BMI) of 38.0 to 38.9 in adult 05/22/2017 Assessment & Plan (10/24/2018 12:58 PM FILLER FEEDER): Making progress with diet efforts. Continue Assessment & Plan (02/08/2018 11:01 AM CDT): Importance of following diet and exercising discussed. Hypertension associated with diabetes 05/22/2017 Assessment & Plan (11/24/2024 10:11 AM FILLER FEEDER): Chronic problem. Controlled on current losartan 100mg daily, amlodipine 10mg daily Assessment & Plan (03/03/2024 8:45 AM CDT): Chronic problem. BP elevated upon arrival. Controlled on current Carvedilol 25mg bid, losartan 100mg daily. No changes at this time. Will update labs today. Does not mychart. Verified phone #/address to contact re: results. Assessment & Plan (09/03/2023 9:28 AM FILLER FEEDER): Chronic problem. BP elevated upon arrival. Controlled [...] renal Assessment & Plan (10/24/2018 12:57 PM FILLER FEEDER): Controlled. Continue current medication plan and follow up with cardiology Assessment & Plan (06/18/2018 2:30 PM CDT): BP controlled on current medication plan. Continue follow up with nephrology Assessment & Plan (02/08/2018 11:00 AM CDT): Continue same medication Assessment & Plan (12/11/2017 10:24 AM FILLER FEEDER): Goal blood pressure is less than 140/85 [...] mellitus Assessment & Plan (11/24/2024 10:16 AM FILLER FEEDER): Chronic problem, controlled on current regimen. A1c [...] daily for skin breakdown and infection (sees shear scrapman regularly). Assessment & Plan (03/03/2024 9:19 AM [...] daily for skin breakdown and infection (sees shear scrapman regularly). Assessment & Plan (09/03/2023 9:27 AM FILLER FEEDER): Chronic problem, controlled on current regimen. A1c [...] daily for skin breakdown and infection (sees shear scrapman regularly). Assessment & Plan (03/05/2023 10:13 AM CDT): Chronic problem, controlled on current regimen. Current medications: Trulicity 1.5mg weekly Lantus 6 units every morning Humalog 4 units before meals For sugars over 160: take 6 units For sugars over 200: take 8 units Seen by Retina Bude every 4-5 mos; letter sent to get [...] daily for skin breakdown and infection (sees shear scrapman regularly). Will update labs today. Verified phone #/address to contact re: results. Assessment & Plan (11/02/2022 2:43 PM FILLER FEEDER): Well controlled, with risk of hypoglycemia Insuli [...] Ross Assessment & Plan (09/07/2020 2:26 PM FILLER FEEDER): Hba1c was Lab Results Component Value Date [...] Trulicity. Assessment & Plan (12/09/2019 2:03 PM FILLER FEEDER): Your Hba1c today was: Lab Results Component Value Date HGBA1C 9.3 12/09/2019 meaning a 3 month average sugar of : 224 Your goal hba1c is under 7.0 to prevent half-way diabetes complications ( eye , kidney and [...] hypoglycemia. Assessment & Plan (10/24/2018 1:00 PM FILLER FEEDER): Stable BG pattern 100-140 reported since last adjustment to plan. No change today. BG goals reviewed. Advised to lower Lantus by 2 units if FBG are < 100 x 2 days/wk. For planned activity, reduce Humalog dose by 1/2 at preceding meal. Assessment & Plan (09/19/2018 11:11 AM FILLER FEEDER): Your Hba1c today was: Lab Results Component Value Date HGBA1C 5.1 09/19/2018 meaning a 3 month average sugar of : 81 Your goal hba1c is under 7.0 to prevent buttermaker continuous churn diabetes complications ( eye , kidney and [...] time. Assessment & Plan (12/11/2017 10:47 AM FILLER FEEDER): Hba1c was .5.4 Today, 1800 calorie, consistent [...] 05/22/2019 Assessment & Plan (09/19/2018 11:20 AM FILLER FEEDER): Prevention and treatment of hypoglycemia were discussed [...] therapy Assessment & Plan (10/24/2018 12:57 PM FILLER FEEDER): Check lipid panel Assessment & Plan (06/18/2018 2:31 PM CDT): Continue statin therapy Assessment & Plan (02/08/2018 11:00 AM CDT): Continue atorvastatin Assessment & Plan (12/11/2017 10:45 AM FILLER FEEDER): Goal of treatment , LDL cholesterol less [...] drink = 0.6 oz pur e alcohol) [facility] [employer] Answer Date Recorded In the past 12 months has [employer], [employer], oil, or water [employer] threatened to shut off services in your [...] week 10/23/2024 How often do you attend [facility] or caodaism services? Never 10/23/2024 Do you belong to any clubs o r organizations such as episcopalian groups, unions, fraternal or athletic groups, or [...] any time in the past 12 [facility], were you homeless or living in a longterm (including now)? No 10/23/2024 Personal Safety Answer Date Recorded Have you ever been in or are you currently in a harmful physical or emotional relationship or is someone making you feel afraid or unsafe? Denies 10/22/2024 Sex and Gender Information Value Date Recorded Sex Assigned at Not on file Legal Sex Male 7:27 PM FILLER FEEDER Gender Identity Not on file Sexual Orientation Not on file Last Filed Vital Signs Vital Sign Reading Time Taken Comments Blood Pressure 102/58 11/24/2024 9:58 AM FILLER FEEDER Pulse 75 11/24/2024 9:58 AM FILLER FEEDER Temperature 36.3 C (97.3 F) 10/25/2024 2:15 PM FILLER FEEDER Respiratory Rate 20 11/24/2024 9:58 AM FILLER FEEDER Oxygen Saturation 100% 10/25/2024 1:15 PM FILLER FEEDER Inhaled Oxygen Concentration - - Weight 91.3 kg (201 lb 4.5 oz) 10/22/2024 8:29 P M FILLER FEEDER Height 170.2 cm (5' 7.01 ) 11/24/2024 9:58 AM CS T Body Mass Index 31.52 10/22/2024 8:29 PM FILLER FEEDER Plan of Treatment Not on file Medical Devices Implanted Type Area Country Singer Device Identifier Shelf Expiration Date Model / Serial / Lot Med[employer]onic Inc Micra 2 Av Synchronous Leadless Ventricular Pacemaker [id number] - [id number] - [id number] Implanted:Qty: 1 on 10/24/2024 by Darien Jamil Jr., MD at [facility] [employer] 02/16/2026 [id number] / [id number] / Procedures Procedure Name Priority Date/Time Associated Diagnosis Comments CARDIOLOGY DOCUMENT SCAN Routine 12/10/2024 10:59 AM FILLER FEEDER POCT GLUCOSE Routine 11/24/2024 10:01 AM FILLER FEEDER Type 2 diabetes mellitus with hyperglycemia, with long-term current use of insulin ([facility]) POCT HEMOGLOBIN A1C Routine 11/24/2024 1 0:01 AM FILLER FEEDER Type 2 diabetes mellitus with hyperglycemia, with long-term current use of insulin ([facility]) DEVICE CHECK - IN OFFICE Routine 11/05/2024 1:22 PM FILLER FEEDER Cardiac pacemaker in situ Asystole (HCC) Syncope and collapse Symptomatic bradycardia POCT GLUCOSE DEVICE Routine 10/25/2024 1 2:56 PM FILLER FEEDER POCT GLUCOSE DEVICE Routine 10/25/2024 8 :10 AM FILLER FEEDER POCT GLUCOSE DEVICE Routine 10/25/2024 7 :43 AM FILLER FEEDER EGFR Routine 10/25/2024 5:48 AM FILLER FEEDER BASIC METABOLIC PANEL Routine 10/25/2024 5:48 AM FILLER FEEDER CBC WITHOUT DIFFERENTIAL Routine 10/25/2024 5:48 AM FILLER FEEDER POCT GLUCOSE DEVICE Routine 10/25/2024 2 :25 AM FILLER FEEDER POCT GLUCOSE DEVICE Routine 10/24/2024 8 :31 PM FILLER FEEDER POCT GLUCOSE DEVICE Routine 10/24/2024 4 :33 PM FILLER FEEDER POCT GLUCOSE DEVICE Routine 10/24/2024 2 :03 PM FILLER FEEDER LEADLESS, SINGLE CHAMBER PACEMAKER (PPM) INSERTION Routine 10/24/2024 1:36 PM FILLER FEEDER Syncope and collapse POCT GLUCOSE DEVICE Routine 10/24/2024 1 1:26 AM FILLER FEEDER POCT GLUCOSE DEVICE Routine 10/24/2024 7 :30 AM FILLER FEEDER TSH Routine 10/24/2024 5:12 AM FILLER FEEDER EGFR Routine 10/24/2024 4:59 AM FILLER FEEDER BASIC METABOLIC PANEL Routine 10/24/2024 4:59 AM FILLER FEEDER CBC WITHOUT DIFFERENTIAL Routine 10/24/2024 4:59 AM FILLER FEEDER POCT GLUCOSE DEVICE Routine 10/24/2024 2 :39 AM FILLER FEEDER POCT GLUCOSE DEVICE Routine 10/23/2024 1 0:25 PM FILLER FEEDER POCT GLUCOSE DEVICE Routine 10/23/2024 8 :04 PM FILLER FEEDER POCT GLUCOSE DEVICE Routine 10/23/2024 5 :42 PM FILLER FEEDER HEPATITIS B SURFACE ANTIBODY (IMMUNE STATUS) Routine 10/23/2024 2:45 PM FILLER FEEDER HEPATITIS PANEL, ACUTE Routine 10/23/2024 2:45 PM FILLER FEEDER POCT GLUCOSE DEVICE Routine 10/23/2024 1 2:57 PM FILLER FEEDER HEMODIALYSIS Routine 10/23/2024 9:13 AM FILLER FEEDER POCT GLUCOSE DEVICE Routine 10/23/2024 7 :47 AM FILLER FEEDER EGFR Routine 10/23/2024 5:27 AM FILLER FEEDER DIFFERENTIAL AUTO Routine 10/23/2024 5:2 7 AM FILLER FEEDER MAGNESIUM Routine 10/23/2024 5:27 AM FILLER FEEDER PHOSPHORUS Routine 10/23/2024 5:27 AM FILLER FEEDER COMPREHENSIVE METABOLIC PANEL Routine 10/23/2024 5:27 AM FILLER FEEDER CBC WITH AUTO DIFFERENTIAL Routine 10/23/2024 5:27 AM FILLER FEEDER POCT GLUCOSE DEVICE Routine 10/23/2024 3 :04 AM FILLER FEEDER POCT GLUCOSE DEVICE Routine 10/22/2024 1 0:42 PM FILLER FEEDER POCT GLUCOSE DEVICE Routine 10/22/2024 8 :42 PM FILLER FEEDER HM DIABETES EYE EXAM Routine 08/13/2024 9:40 [...] Read Routine (OP Routine) 12/05/2021 11:53 AM FILLER FEEDER End stage renal disease (HCC) from Last 3 Months or Most Recently Relevant to Health Maintenance Results * Cardiology Document Scan (12/10/2024 10:59 AM FILLER FEEDER) Anatomical Region Laterality Modality Other us Ripa Hayden Grady MD CV CARDIAC SERVICES PRO CEDURES Final Result * POCT hemoglobin A1c (11/24/2024 10:01 AM FILLER FEEDER) Hemoglobin A1C, POC 4.9 4.0 - 5.6 % Blood 11/24/2024 10:0 1 AM FILLER FEEDER us Berthageno Pinto NP POINT OF CARE TEST ORDERA BLES Final Result * (ABNORMAL) POCT glucose (11/24/2024 10:01 AM FILLER FEEDER) Glucose Blood, POC 131 mg/dL Blood 11/24/2024 10:0 1 AM FILLER FEEDER us Bertha Efe Pinto AIR QUALITY CHEMIST POINT OF CARE TEST ORDERA BLES Final Result * DEVICE CHECK - IN OFFICE (11/05/2024 1:22 PM FILLER FEEDER) Anatomical Region Laterality Modality Other Narrative 11/13/2024 2:43 PM FILLER FEEDER Medtronic Micra AV2 Pacemaker. Dx; Symptomatic Bradycardia, Sinus Arrest, Syncope. DOI 10/24/2024-[place]. [place]. [employer] remote. Supervising MD: Dr Harris. Patient seen [...] Result * POCT glucose (10/25/2024 12:56 PM FILLER FEEDER) Glucose, POC 74 70 - 199 mg/dL Blood 10/25/2024 12:5 6 PM FILLER FEEDER 10/25/2024 12:56 PM FILLER FEEDER Nabeel Richard Philippe LAB POCT ORDERABLES - DEVICE Final Result Performing Organization Address [facility] de Phone Number NIDIA COTE [address] [facility] [employer] [place] [address] * POCT glucose (10/25/2024 8:10 AM FILLER FEEDER) Glucose, POC 100 70 - 199 mg/dL Blood 10/25/2024 8:10 AM FILLER FEEDER 10/25/2024 8:10 AM FILLER FEEDER Nabeel Richard Philippe [facility] POCT ORDERABLES - DEVICE Final Result Performing Organization Address [facility] [place] Number [place] [address] [address] [facility] [employer] [place] [address] * POCT glucose (10/25/2024 7:43 AM FILLER FEEDER) Glucose, POC 78 70 - 199 mg/dL Blood 10/25/2024 7:43 AM FILLER FEEDER 10/25/2024 7:43 AM FILLER FEEDER Nabeel Richard Philippe [facility] POCT ORDERABLES - DEVICE Final Result Performing Organization Address [facility] [place] Number [place] [address] [address] [facility] [employer] [place] [address] * (ABNORMAL) eGFR (10/25/2024 5:48 AM FILLER FEEDER) eGFR 9(L) >=60 mL/min/1. 73 m2 Comment: [...] last reviewed 2021. Blood 10/25/2024 5:48 AM FILLER FEEDER 10/25/2024 6:03 AM FILLER FEEDER us Raisa Scherer NP LAB BLOOD ORDERABLES Jeaneth mari Result [facility] [address] Department [place] [address] * (ABNORMAL) CBC without differential (10/25/2024 5:48 AM FILLER FEEDER) Pathologist [facility] WBC 4.6 3.8 - 9.9 K/cumm Hgb 8.3(L) 13.0 - 17.5 g/dL [facility] Hct 28.1(L) 38.9 - 50.3 % [facility] Plt 187 150 - 400 K/cumm [facility] MPV 10.6 9.1 - 12.3 fL [facility] RBC 2.82(L) 4.30 - 5.80 M/cumm [facility] MCV 99.6(H) 81.3 - 96.4 fL [facility] MCH 29.4 27.1 - 33.3 pg [facility] MCHC 29.5(L) 32.3 - 35.7 g/dL [facility] CV 16.3(H) 11.1 - 14.9 % [facility] RDW SD 60.4(H) 35.7 - 48.1 fL [facility] NRBC abs 0.00 0.00 - 0.01 K/cumm [facility] Blood 10/25/2024 5:48 AM FILLER FEEDER 10/25/2024 6:03 AM FILLER FEEDER Raisa Scherer NP LAB BLOOD ORDER[place] [address] Department [place] [address] * (ABNORMAL) Basic metabolic panel (10/25/2024 5:48 AM FILLER FEEDER) Sodium 135 135 - 145 mmol/L Potassium, pl 4.3 3.3 - 4.9 mmol/L [facility] Chloride 93(L) 97 - 110 mmol/L [facility] CO2 27 22 - 32 mmol/L [facility] Anion gap 15 2 - 15 mmol/L [facility] BUN 30(H) 6 - 25 mg/dL [facility] Creatinine 5.94(H) 0.80 - 1.30 mg/dL [facility] Glucose 76 70 - 199 mg/dL [facility] Comment: [...] Calcium 8.8 8.5 - 10.3 mg/dL [facility] Blood 10/25/2024 5:48 AM FILLER FEEDER 10/25/2024 6:03 AM FILLER FEEDER Raisa G. Torbert AIR QUALITY CHEMIST LAB BLOOD ORDERABLES Jeaneth l Result NIDIA COTE [address] [facility] [employer] [place] [address] * POCT glucose (10/25/2024 2:25 AM FILLER FEEDER) Glucose, POC 81 70 - 199 mg/dL Blood 10/25/2024 2:25 AM FILLER FEEDER 10/25/2024 2:25 AM FILLER FEEDER Nabeel Paez DO LAB POCT ORDERABLES - DEVICE Final Result Performing Organization Address [facility] Co de Phone Number NIDIA COTE [address] [address] [facility] [employer] [place] [address] * POCT glucose (10/24/2024 8:31 PM FILLER FEEDER) Glucose, POC 120 70 - 199 mg/dL Blood 10/24/2024 8:31 PM FILLER FEEDER 10/24/2024 8:31 PM FILLER FEEDER Nabeel Paez DO [facility] POCT ORDERABLES - DEVICE Final Result Performing Organization Address [facility] Co de Phone Number NIDIA COTE [address] [address] [facility] [employer] [place] [address] * POCT glucose (10/24/2024 4:33 PM FILLER FEEDER) Glucose, POC 85 70 - 199 mg/dL Blood 10/24/2024 4:33 PM FILLER FEEDER 10/24/2024 4:33 PM FILLER FEEDER Nabeel Paez LAB POCT ORDERABLES - DEVICE Final Result Performing Organization Address [facility] Co de Phone Number NIDIA COTE [address] [address] [facility] [employer] [place] [address] * POCT glucose (10/24/2024 2:03 PM FILLER FEEDER) Glucose, POC 83 70 - 199 mg/dL Blood 10/24/2024 2:03 PM FILLER FEEDER 10/24/2024 2:03 PM FILLER FEEDER Nabeel Ramos Philippe [facility] POCT ORDERABLES - DEVICE Final Result Performing Organization Address [facility] Co de Phone Number NIDIA COTE [address] [facility] [employer] [place] [address] * POCT glucose (10/24/2024 11:26 AM FILLER FEEDER) Glucose, POC 85 70 - 199 mg/dL Blood 10/24/2024 11:2 6 AM FILLER FEEDER 10/24/2024 11:26 AM FILLER FEEDER Nabeel Richard Philippe [facility] POCT ORDERABLES - DEVICE Final Result Performing Organization Address [facility] de Phone Number NIDIA [address] [place] [address] * POCT glucose (10/24/2024 7:30 AM FILLER FEEDER) Glucose, POC 94 70 - 199 mg/dL Blood 10/24/2024 7:30 AM FILLER FEEDER 10/24/2024 7:30 AM FILLER FEEDER Nabeel Richard Philippe [facility] POCT ORDERABLES - DEVICE Final Result Performing Organization Address [facility] de Phone Number NIDIA KERA [address] [place] [address] * TSH (10/24/2024 5:12 AM FILLER FEEDER) Thyroid Stimulating Hormone 0.48 0.30 - 4.20 mcIUnit/mL Blood 10/24/2024 5:12 AM FILLER FEEDER 10/24/2024 5:23 AM FILLER FEEDER Sherrill Christianson MD LAB BLOOD ORDERABLES Final Result Performing Organization Address [facility] [place] [address] [address] Department [place] [address] * (ABNORMAL) eGFR (10/24/2024 4:59 AM FILLER FEEDER) eGFR 13(L) >=60 mL/min/1. 73 m2 Comment: [...] last reviewed 2021. Blood 10/24/2024 4:59 AM FILLER FEEDER 10/24/2024 5:23 AM FILLER FEEDER us Raisa Scherer NP LAB BLOOD ORDERABLES Jeaneth mari Result [facility] [address] Department [place] [address] * (ABNORMAL) CBC without differential (10/24/2024 4:59 AM FILLER FEEDER) WBC 5.1 3.8 - 9.9 K/cumm Hgb 8.9(L) 13.0 - 17.5 g/dL [facility] Hct 29.9(L) 38.9 - 50.3 % [facility] Plt 188 150 - 400 K/cumm [facility] MPV 10.2 9.1 - 12.3 fL [facility] RBC 2.93(L) 4.30 - 5.80 M/cumm [facility] MCV 102.0(H) 81.3 - 96.4 fL [facility] MCH 30.4 27.1 - 33.3 pg [facility] MCHC 29.8(L) 32.3 - 35.7 g/dL [facility] RDW CV 16.8(H) 11.1 - 14.9 % [facility] RDW SD 62.6(H) 35.7 - 48.1 fL [facility] NRBC abs 0.00 0.00 - 0.01 K/cumm [facility] Blood 10/24/2024 4:59 AM FILLER FEEDER 10/24/2024 5:20 AM FILLER FEEDER us Raisa Scherer NP LAB BLOOD ORDERABLES Jeaneth mari Result [facility] [address] Department [place] [address] * (ABNORMAL) Basic metabolic panel (10/24/2024 4:59 AM FILLER FEEDER) Sodium 136 135 - 145 mmol/L Potassium, pl 4.2 3.3 - 4.9 mmol/L [facility] Chloride 94(L) 97 - 110 mmol/L [facility] CH CO2 31 22 - 32 mmol/L [facility] CH Anion gap 11 2 - 15 mmol/L [facility] CH BUN 20 6 - 25 mg/dL [facility] Creatinine 4.30(H) 0.80 - 1.30 mg/dL [facility] Glucose 80 70 - 199 mg/dL [facility] Comment: Interpretive Data Fasting glucose [...] Calcium 9.1 8.5 - 10.3 mg/dL [facility] Blood 10/24/2024 4:59 AM FILLER FEEDER 10/24/2024 5:20 AM FILLER FEEDER Raisa Scherer AIR QUALITY CHEMIST LAB BLOOD ORDERABLES Jeaneth l Result NIDIA COTE [address] [facility] [employer] [place] [address] * POCT glucose (10/24/2024 2:39 AM FILLER FEEDER) Glucose, POC 123 70 - 199 mg/dL Blood 10/24/2024 2:39 AM FILLER FEEDER 10/24/2024 2:39 AM FILLER FEEDER Nabeel Paez DO LAB POCT ORDERABLES - DEVICE Final Result Performing Organization Address [facility] Co de Phone Number ALYSSAALANNAH [address] [facility] [employer] [place] [address] * POCT glucose (10/23/2024 10:25 PM FILLER FEEDER) Glucose, POC 173 70 - 199 mg/dL Blood 10/23/2024 10:2 5 PM FILLER FEEDER 10/23/2024 10:25 PM FILLER FEEDER Nabeel HERRING POCT ORDERABLES - DEVICE Final Result Performing Organization Address [facility] Co de Phone Number ALYSSAALANNAH [address] [place] [address] * POCT glucose (10/23/2024 8:04 PM FILLER FEEDER) Glucose, POC 70 70 - 199 mg/dL Blood 10/23/2024 8:04 PM FILLER FEEDER 10/23/2024 8:04 PM FILLER FEEDER Nabeel Paez DO LAB POCT ORDERABLES - DEVICE Final Result Performing Organization Address [facility] Co de Phone Number ALYSSAALANNAH [address] [facility] [employer] [place] [address] * POCT glucose (10/23/2024 5:42 PM FILLER FEEDER) Glucose, POC 90 70 - 199 mg/dL Blood 10/23/2024 5:42 PM FILLER FEEDER 10/23/2024 5:42 PM FILLER FEEDER Nabeel Paez DO LAB POCT ORDERABLES - DEVICE Final Result Performing Organization Address City/[facility]/ZIP Co de Phone Number NIDIA [address] [address] [place] [address] * Hepatitis panel, acute Blood (10/23/2024 2:45 PM FILLER FEEDER) Hep A IgM Nonreactive Nonreactive Comment: Interpretive Data: If Hep A IgM Ab is reported as Equivocal, a new sample should be drawn in two weeks for testing. Current interpretive data was last revised on 20. Hep B core IgM Nonreactive Nonreactive [facility] Comment: Interpretive Data If HepB Core IgM Ab is reported as Equivocal, a new sample should be drawn in two weeks for testing. Current interpretive data was last revised on 20. Hep C Ab Nonreactive Nonreactive [facility] Comment: Interpretive Data Nonreactive: Antibodies to [...] last revised on 2020. HepBsAg Nonreactive Nonreactive [facility] Blood 10/23/2024 2:45 PM FILLER FEEDER 10/23/2024 2:46 PM FILLER FEEDER Sherrill Christianson MD LAB MICROBIOLOGY - GENERAL ORDERABLES Final Result Performing Organization Address City/[facility]/ZIP Co de Phone Number NIDIA [address] [place] [address] * Hepatitis B surface antibody (immune status) Blood (10/23/2024 2:45 PM FILLER FEEDER) HBsAb (immune status) Nonreactive Comment: Interpretive Data [...] revised on 20. Blood 10/23/2024 2:45 PM FILLER FEEDER 10/23/2024 2:46 PM FILLER FEEDER Sherrill Christianson MD LAB MICROBIOLOGY - GENERAL ORDERABLES Final Result Performing Organization Address [facility] [place] [address] [address] Department [employer] [place] [address] * (ABNORMAL) POCT glucose (10/23/2024 12:57 PM FILLER FEEDER) Glucose, POC 69(L) 70 - 199 mg/dL Blood 10/23/2024 12:5 7 PM FILLER FEEDER 10/23/2024 12:57 PM FILLER FEEDER Nabeel Paez DO LAB POCT ORDERABLES - DEVICE Final Result Performing Organization Address City/[facility] [place] [address] [address] Department of [employer] [place] [address] * POCT glucose (10/23/2024 7:47 AM FILLER FEEDER) Glucose, POC 81 70 - 199 mg/dL Blood 10/23/2024 7:47 AM FILLER FEEDER 10/23/2024 7:47 AM FILLER FEEDER Sylvester Engel MD LAB POCT ORDERABLES - DEVICE Final Result Performing Organization Address [facility] [place] [address] [address] [facility] [place] [address] * (ABNORMAL) eGFR (10/23/2024 5:27 AM FILLER FEEDER) eGFR 11(L) >=60 mL/min/1. 73 m2 Comment: [...] last reviewed 2021. Blood 10/23/2024 5:27 AM FILLER FEEDER 10/23/2024 5:32 AM FILLER FEEDER us Raisa Scherer NP LAB BLOOD ORDERABLES Jeaneth mari Result NIDIA [address] Department [place] [address] * (ABNORMAL) Differential, auto (10/23/2024 5:27 AM FILLER FEEDER) Neutrophil abs 4.1 1.5 - 6.5 K/cumm Imm gran abs 0.1 0.0 - 0.1 K/cumm [facility] Lymphocyte abs 0.4(L) 0.8 - 3.3 K/cumm [facility] Monocyte abs 0.7 0.2 - 0.8 K/cumm [facility] Eosinophil abs 0.1 0.0 - 0.5 K/cumm [facility] Basophil abs 0.0 0.0 - 0.1 K/cumm [facility] Neutrophil pct 76.5 % [facility] Comment: Interpretive Data Percent cell count reference ranges are not reported, since discordance with absolute values may lead to misinterpretation of CBC data. Current Interpretive Data was last revised on 2018. Imm gran pct 1.1 % [facility] Comment: Interpretive Data Percent cell count reference ranges are not reported, since discordance with absolute values may lead to misinterpretation of CBC data. Current Interpretive Data was last revised on 2018. Lymphocyte pct 7.9 % [facility] Comment: Interpretive Data Percent cell count reference ranges are not reported, since discordance with absolute values may lead to misinterpretation of CBC data. Current Interpretive Data was last revised on 2018. Monocyte pct 12.7 % [facility] Comment: Interpretive Data Percent cell count reference ranges are not reported, since discordance with absolute values may lead to misinterpretation of CBC data. Current Interpretive Data was last revised on 2018. Eosinophil pct 1.1 % [facility] Comment: Interpretive Data Percent cell count reference ranges are not reported, since discordance with absolute values may lead to misinterpretation of CBC data. Current Interpretive Data was last revised on 2018. Basophil pct 0.7 % [facility] Comment: Interpretive Data Percent cell count reference ranges are not reported, since discordance with absolute values may lead to misinterpretation of CBC data. Current Interpretive Data was last revised on 2018. Blood 10/23/2024 5:2 7 AM FILLER FEEDER 10/23/2024 5:30 AM FILLER FEEDER us Raisa Scherer AIR QUALITY CHEMIST LAB BLOOD ORDERABLES Jeaneth l Result [facility] [address] Department [place] [address] * (ABNORMAL) CBC with auto differential (10/23/2024 5:27 AM FILLER FEEDER) WBC 5.3 3.8 - 9.9 K/cumm Hgb 8.8(L) 13.0 - 17.5 g/dL [facility] Hct 28.9(L) 38.9 - 50.3 % [facility] Plt 179 150 - 400 K/cumm [facility] MPV 10.4 9.1 - 12.3 fL [facility] RBC 2.86(L) 4.30 - 5.80 M/cumm [facility] MCV 101.0(H) 81.3 - 96.4 fL [facility] MCH 30.8 27.1 - 33.3 pg [facility] MCHC 30.4(L) 32.3 - 35.7 g/dL [facility] RDW CV 17.2(H) 11.1 - 14.9 % [facility] CH RDW SD 63.7(H) 35.7 - 48.1 fL [facility] NRBC abs 0.00 0.00 - 0.01 K/cumm [facility] Blood 10/23/2024 5:27 AM FILLER FEEDER 10/23/2024 5:30 AM FILLER FEEDER Raisa Scherer AIR QUALITY CHEMIST LAB BLOOD ORDERABLES Jeaneth l Result Performing Organization Address [facility] Co de Phone Number [facility] [address] [address] [facility] [employer] [place] [address] * Phosphorus (10/23/2024 5:27 AM FILLER FEEDER) Phosphorus, pl 4.5 2.3 - 4.5 mg/dL Blood 10/23/2024 5:27 AM FILLER FEEDER 10/23/2024 5:30 AM FILLER FEEDER Raisa Scherer AIR QUALITY CHEMIST LAB BLOOD ORDERABLES Jeaneth l Result Performing Organization Address City/[facility] Co de Phone Number [facility] [address] [address] [facility] [employer] [place] [address] * Magnesium (10/23/2024 5:27 AM FILLER FEEDER) Magnesium 2.1 1.4 - 2.5 mg/dL Blood 10/23/2024 5:27 AM FILLER FEEDER 10/23/2024 5:30 AM FILLER FEEDER Raisa Scherer AIR QUALITY CHEMIST LAB BLOOD ORDERABLES Jeaneth l Result Performing Organization Address [facility]/[place] [address] Department [place] [address] * (ABNORMAL) Comprehensive metabolic panel (10/23/2024 5:27 AM FILLER FEEDER) Sodium 137 135 - 145 mmol/L Potassium, [...] Units/L [facility] Blood 10/23/2024 5:27 AM FILLER FEEDER 10/23/2024 5:30 AM FILLER FEEDER Raisa Scherer AIR QUALITY CHEMIST LAB BLOOD ORDERABLES Jeaneth l Result NIDIA COTE [address] [address] Department [employer] [place] [address] * POCT glucose (10/23/2024 3:04 AM FILLER FEEDER) Glucose, POC 84 70 - 199 mg/dL Blood 10/23/2024 3:04 AM FILLER FEEDER 10/23/2024 3:04 AM FILLER FEEDER Sylvester Engel MD LAB POCT ORDERABLES - DEVICE Final Result Performing Organization Address [facility] Co de Phone Number NIDIA COTE [address] [address] Department [employer] [place] [address] * POCT glucose (10/22/2024 10:42 PM FILLER FEEDER) Glucose, POC 101 70 - 199 mg/dL Blood 10/22/2024 10:4 2 PM FILLER FEEDER 10/22/2024 10:42 PM FILLER FEEDER Sylvester Engel MD LAB POCT ORDERABLES - DEVICE Final Result Performing Organization Address [facility] Co de Phone Number NIDIA COTE [address] [address] Department [employer] [place] [address] * POCT glucose (10/22/2024 8:42 PM FILLER FEEDER) Glucose, POC 114 70 - 199 mg/dL Blood 10/22/2024 8:42 PM FILLER FEEDER 10/22/2024 8:42 PM FILLER FEEDER Guru Miller MD LAB POCT ORDERABLES - DEVICE Final Result Performing Organization Address [facility] Co de Phone Number NIDIA COTE [address] [address] [facility] [employer] [place] [address] * (ABNORMAL) DIABETES EYE EXAM (08/13/2024 9:40 AM CDT) Historical Provider HEALTH MAINTENANCE Edited Result - Final * (ABNORMAL) Albumin Creatinine Ratio, Urine (03/10/2024 8:46 AM CDT) Albumin Ur 3,169.5 mg/L Comment: Interpretive Data No reference range established. Current interpretive data was last revised 2019. Creatinine Ur 47.7 mg/dL [facility] Comment: Interpretive Data No reference range established. Current interpretive data was last revised 2019. Albumin Creatinine Ratio, Ur 6,645(H) 1 - 29 mg/g [facility] Urine 03/10/2024 8:46 AM CDT 03/11/2024 9:11 AM CDT us Bertha Pinto NP LAB URINE ORDERABLES Jeaneth mrai Result [facility] [address] Department [place] [address] * (ABNORMAL) Lipid panel (03/03/2024 9:29 AM [...] revised on 2018. Triglycerides 75 <=149 mg/dL [facility] Comment: Interpretive Data Ages < or [...] revised on 2018. Chol/HDL ratio 2 NIDIA Blood 03/03/2024 9:29 AM CDT 03/03/2024 4:40 PM CDT us Bertha Pinto NP LAB BLOOD ORDERABLES Jeaneth mari Result NIDIA COTE [address] Department [place] [address] * CT Abdomen Pelvis WO Contrast (12/05/2021 11:53 AM FILLER FEEDER) Anatomical Region Laterality Modality Body N/A Computed Tomogra phy 12/05/2021 12:0 4 PM FILLER FEEDER Impressions 12/05/2021 12:04 PM FILLER FEEDER Bone windows show no suspicious lytic or blastic lesions. IMPRESSION: 1. 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 2. 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 Electronically signed by: Ryan Cameron M.D. Narrative 12/05/2021 12:04 PM FILLER FEEDER EXAMINATION: Computed tomography of the abdomen/pelvis without [...] adeniform shape. 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 Adjacent fat stranding is likely related [...] artery secondary to atherosclerotic disease. Procedure Note yRan Cameron MD - 12/05/2021 EXAMINATION: Computed tomography [...] adeniform shape. 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 Adjacent fat stranding is likely related [...] by: Ryan Cameron M.D. Alex Ceballos MD IM CT PROCEDURES Final Re sult from Last 3 Months or Most Recently Relevant to Health Maintenance Insurance MEDICARE FOR LIFE FOR LIFE MEDICARE MEDICARE FOR LIFE Care Teams Finisher Operator Relationship Specialty Start Date End Date Mariza Carrion MD [address] [place] [address] PCP - General Family Practice 03/05/23 Efren Hoyos MD Referring Physician Ophthalmology 06/16/19 Dank Hicks MD [address] [facility] [address] [place], [place] [id number] Consulting Physician Cardiology 10/11/21
--- OUTSIDE RECORDS SUMMARY | 2024-12-30 16:56 | XMS_ITS | CONTINUITY OF CARE DOCUMENT ---
Author Name milly atkins Address Unknown Organization [facility] Address [address] [place] [address] Phone [phone] Care Team Providers Care First Coat Sander Name Role Phone Kostas Pelaez MD Unavailable [phone] Kostas Pelaez MD Unavailable [phone] PROBLEMS Condition Status Date Provider Notes S/P Single chamb PCM Micra - [employer] ( MRI safe) active Tonie Garay INSURANCE PROVIDERS Payer name Policy type / Coverage type Augustin red libertarian ID [employer] [place] [id number] [place] MEDICARE PART B Medicare [id number]
--- NOTE | 2024-12-30 16:58 | PC.NURSE ---
Ami from [facility] called to give information about pt. Pt. is a diabetic and gets dialysis T//Sat. Pt. completed dialysis today.
[2024-12-30 19:23] VITALS: O2SAT 94
[2024-12-30 19:30] VITALS: O2SAT 93
[2024-12-30 19:45] VITALS: BP 160/75; O2SAT 95
[2024-12-30 19:46] VITALS: O2SAT 98
--- NOTE | 2024-12-30 19:47 | PC.NURSE ---
edp at bedside for assessment. wound cleansed with ns and gauze.
[2024-12-30] MEDS: TETANUS,DIPHTHERIA,AC PERTUSSIS ADULT (0.5 ML) BOOSTRIX IM (19:49)
--- OUTSIDE RECORDS SUMMARY | 2024-12-30 19:59 | XMS_ITS | Encounter Summary ---
Author Organization [facility] Address [address] [place] [address] Care Team Providers Care Engineer Operations And Maintenance Name Role Phone Mariza Carrion MD Primary Care Provider Encounter Details Date Type Department Care Team (Late Contact Info) Description 06/03/2018 [facility] Outpatient Visit [facility] [address] [place] [address] [place] [address] [facility] [address] [place] [id number] Social History Tobacco Use Types Packs/Day [...] Info) Description 03/23/2025 8:[address] [facility] Health Vascular Services [address] [place], [place] [id number] [place] [address] [facility] [address] [place] [address] documented as of this encounter Visit Diagnoses Not on filedocumented in this encounter Care Teams Engineer Operations And Maintenance Relationship Specialty Start Date End Date Mariza Carrion MD [address] [place] [id number] PCP - General Family Medicine 08/26/18 documented as of this encounter
--- OUTSIDE RECORDS SUMMARY | 2024-12-30 19:59 | XMS_ITS ---
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 Name Role Phone Efren Hoyos MD Unavailable Dank Hicks MD Unavailable [phone] Mariza Carrion MD Primary Care Provider Dialysis Access Sites Type Status Location Placement Date Removal Da te AV fistula Active Left Upper Arm - Anterior AV fistula Inactive 10/23/2024 Procedures Procedure Name Priority Date/Time Associated Diagnosis Comments CARDIOLOGY DOCUMENT SCAN Routine 12/10/2024 10:59 AM HEALTHCARE CONSULTING MANAGER POCT GLUCOSE Routine 11/24/2024 10:01 AM HEALTHCARE CONSULTING MANAGER Type 2 diabetes mellitus with hyperglycemia, with long-term current use of insulin ([facility]) POCT HEMOGLOBIN A1C Routine 11/24/2024 1 0:01 AM HEALTHCARE CONSULTING MANAGER Type 2 diabetes mellitus with hyperglycemia, with long-term current use of insulin ([facility]) DEVICE CHECK - IN OFFICE Routine 11/05/2024 1:22 PM HEALTHCARE CONSULTING MANAGER Cardiac pacemaker in situ Asystole (HCC) Syncope and collapse Symptomatic bradycardia POCT GLUCOSE DEVICE Routine 10/25/2024 1 2:56 PM HEALTHCARE CONSULTING MANAGER POCT GLUCOSE DEVICE Routine 10/25/2024 8 :10 AM HEALTHCARE CONSULTING MANAGER POCT GLUCOSE DEVICE Routine 10/25/2024 7 :43 AM HEALTHCARE CONSULTING MANAGER EGFR Routine 10/25/2024 5:48 AM HEALTHCARE CONSULTING MANAGER BASIC METABOLIC PANEL Routine 10/25/2024 5:48 AM HEALTHCARE CONSULTING MANAGER CBC WITHOUT DIFFERENTIAL Routine 10/25/2024 5:48 AM HEALTHCARE CONSULTING MANAGER POCT GLUCOSE DEVICE Routine 10/25/2024 2 :25 AM HEALTHCARE CONSULTING MANAGER POCT GLUCOSE DEVICE Routine 10/24/2024 8 :31 PM HEALTHCARE CONSULTING MANAGER POCT GLUCOSE DEVICE Routine 10/24/2024 4 :33 PM HEALTHCARE CONSULTING MANAGER POCT GLUCOSE DEVICE Routine 10/24/2024 2 :03 PM HEALTHCARE CONSULTING MANAGER LEADLESS, SINGLE CHAMBER PACEMAKER (PPM) INSERTION Routine 10/24/2024 1:36 PM HEALTHCARE CONSULTING MANAGER Syncope and collapse POCT GLUCOSE DEVICE Routine 10/24/2024 1 1:26 AM HEALTHCARE CONSULTING MANAGER POCT GLUCOSE DEVICE Routine 10/24/2024 7 :30 AM HEALTHCARE CONSULTING MANAGER TSH Routine 10/24/2024 5:12 AM HEALTHCARE CONSULTING MANAGER EGFR Routine 10/24/2024 4:59 AM HEALTHCARE CONSULTING MANAGER BASIC METABOLIC PANEL Routine 10/24/2024 4:59 AM HEALTHCARE CONSULTING MANAGER CBC WITHOUT DIFFERENTIAL Routine 10/24/2024 4:59 AM HEALTHCARE CONSULTING MANAGER POCT GLUCOSE DEVICE Routine 10/24/2024 2 :39 AM HEALTHCARE CONSULTING MANAGER POCT GLUCOSE DEVICE Routine 10/23/2024 1 0:25 PM HEALTHCARE CONSULTING MANAGER POCT GLUCOSE DEVICE Routine 10/23/2024 8 :04 PM HEALTHCARE CONSULTING MANAGER POCT GLUCOSE DEVICE Routine 10/23/2024 5 :42 PM HEALTHCARE CONSULTING MANAGER HEPATITIS B SURFACE ANTIBODY (IMMUNE STATUS) Routine 10/23/2024 2:45 PM HEALTHCARE CONSULTING MANAGER HEPATITIS PANEL, ACUTE Routine 10/23/2024 2:45 PM HEALTHCARE CONSULTING MANAGER POCT GLUCOSE DEVICE Routine 10/23/2024 1 2:57 PM HEALTHCARE CONSULTING MANAGER HEMODIALYSIS Routine 10/23/2024 9:13 AM HEALTHCARE CONSULTING MANAGER POCT GLUCOSE DEVICE Routine 10/23/2024 7 :47 AM HEALTHCARE CONSULTING MANAGER EGFR Routine 10/23/2024 5:27 AM HEALTHCARE CONSULTING MANAGER DIFFERENTIAL AUTO Routine 10/23/2024 5:2 7 AM HEALTHCARE CONSULTING MANAGER MAGNESIUM Routine 10/23/2024 5:27 AM HEALTHCARE CONSULTING MANAGER PHOSPHORUS Routine 10/23/2024 5:27 AM HEALTHCARE CONSULTING MANAGER COMPREHENSIVE METABOLIC PANEL Routine 10/23/2024 5:27 AM HEALTHCARE CONSULTING MANAGER CBC WITH AUTO DIFFERENTIAL Routine 10/23/2024 5:27 AM HEALTHCARE CONSULTING MANAGER POCT GLUCOSE DEVICE Routine 10/23/2024 3 :04 AM HEALTHCARE CONSULTING MANAGER POCT GLUCOSE DEVICE Routine 10/22/2024 1 0:42 PM HEALTHCARE CONSULTING MANAGER POCT GLUCOSE DEVICE Routine 10/22/2024 8 :42 PM HEALTHCARE CONSULTING MANAGER HM DIABETES EYE EXAM Routine 08/13/2024 9:40 [...] Read Routine (OP Routine) 12/05/2021 11:53 AM HEALTHCARE CONSULTING MANAGER End stage renal disease (HCC) from Last [...] use of insulin ([facility]) Use to test glucose 5 times daily 450 each 2 04/03/20 18 Active lancets (freestyle) 28 gauge miscIndications:T ype 2 diabetes mellitus with hyperglycemia, with long-term current use of insulin ([facility]) Use to test glucose 5 [...] current use of insulin ([facility]) Inject 0.5ML(1.5MG total) under the [...] use of insulin ([facility]) Use to inject insulin 4x/day [...] 12/09/2019 Assessment & Plan (09/03/2023 9:28 AM HEALTHCARE CONSULTING MANAGER): Chronic problem. HD [facility] in [place]: //Saturdays. LUE fistula. Assessment & Plan (03/05/2023 9:59 AM CDT): Chronic problem. HD [facility] in [place]: //Saturdays. LUE fistula. ESRD on dialysis 05/22/2019 Hyperlipidemia associated with type 2 diabetes fouzia victoria 05/22/2019 Assessment & Plan (11/24/2024 10:10 AM HEALTHCARE CONSULTING MANAGER): Chronic problem. Controlled on current Atorvastatin 20mg. Last lipid panel: 03/03/24 LDL=33, TG=75. Assessment & Plan (03/03/2024 8:45 AM CDT): Chronic problem. Controlled on current Atorvastatin 20mg. Last lipid panel: 03/05/23 LDL=57, RG=573. Will update labs today. Does not mychart. Verified phone #/address to contact re: results. Assessment & Plan (09/03/2023 9:28 AM HEALTHCARE CONSULTING MANAGER): Chronic problem. Controlled on current Atorvastatin 20mg. Last lipid panel: 03/05/23 LDL=57, DK=952. Assessment & Plan (03/05/2023 9:53 AM CDT): Chronic problem. Controlled on current Atorvastatin 20mg. Last lipid panel: 12/05/21 LDL=36, DZ=409. Will update labs today. Verified phone #/address to contact re: results. Assessment & Plan (11/02/2022 2:47 PM HEALTHCARE CONSULTING MANAGER): Chronic, well controlled Low fat Low cholesterol [...] Lipitor Assessment & Plan (09/07/2020 2:26 PM HEALTHCARE CONSULTING MANAGER): Goal of treatment , LDL cholesterol less [...] panel Assessment & Plan (12/09/2019 2:03 PM HEALTHCARE CONSULTING MANAGER): Very high TG Add Johncepa Assessment & [...] statin therapy Coronary artery disease invo lving [place] coronary artery of [place] heart without angina pectoris 10/04/2017 Hx of CABG 10/04/2017 Class 2 severe obesity due t o excess calories with serious comorbidity and body mass index (BMI) of 38.0 to 38.9 in adult 05/22/2017 Assessment & Plan (10/24/2018 12:58 PM HEALTHCARE CONSULTING MANAGER): Making progress with diet efforts. Continue Assessment & Plan (02/08/2018 11:01 AM CDT): Importance of following diet and exercising discussed. Hypertension associated with diabetes 05/22/2017 Assessment & Plan (11/24/2024 10:11 AM HEALTHCARE CONSULTING MANAGER): Chronic problem. Controlled on current losartan 100mg daily, amlodipine 10mg daily Assessment & Plan (03/03/2024 8:45 AM CDT): Chronic problem. BP elevated upon arrival. Controlled on current Carvedilol 25mg bid, losartan 100mg daily. No changes at this time. Will update labs today. Does not mychart. Verified phone #/address to contact re: results. Assessment & Plan (09/03/2023 9:28 AM HEALTHCARE CONSULTING MANAGER): Chronic problem. BP elevated upon arrival. Controlled [...] renal Assessment & Plan (10/24/2018 12:57 PM HEALTHCARE CONSULTING MANAGER): Controlled. Continue current medication plan and follow up with cardiology Assessment & Plan (06/18/2018 2:30 PM CDT): BP controlled on current medication plan. Continue follow up with nephrology Assessment & Plan (02/08/2018 11:00 AM CDT): Continue same medication Assessment & Plan (12/11/2017 10:24 AM HEALTHCARE CONSULTING MANAGER): Goal blood pressure is less than 140/85 [...] mellitus Assessment & Plan (11/24/2024 10:16 AM HEALTHCARE CONSULTING MANAGER): Chronic problem, controlled on current regimen. A1c [...] daily for skin breakdown and infection (sees glueline worker regularly). Assessment & Plan (03/03/2024 9:19 AM [...] daily for skin breakdown and infection (sees glueline worker regularly). Assessment & Plan (09/03/2023 9:27 AM HEALTHCARE CONSULTING MANAGER): Chronic problem, controlled on current regimen. A1c [...] daily for skin breakdown and infection (sees glueline worker regularly). Assessment & Plan (03/05/2023 10:13 AM CDT): Chronic problem, controlled on current regimen. Current medications: Trulicity 1.5mg weekly Lantus 6 units every morning Humalog 4 units before meals For sugars over 160: take 6 units For sugars over 200: take 8 units Seen by [facility] [place] every 4-5 mos; letter sent to get [...] daily for skin breakdown and infection (sees glueline worker regularly). Will update labs today. Verified phone #/address to contact re: results. Assessment & Plan (11/02/2022 2:43 PM HEALTHCARE CONSULTING MANAGER): Well controlled, with risk of hypoglycemia Insuli [...] Ross Assessment & Plan (09/07/2020 2:26 PM HEALTHCARE CONSULTING MANAGER): Hba1c was Lab Results Component Value Date [...] Trulicity. Assessment & Plan (12/09/2019 2:03 PM HEALTHCARE CONSULTING MANAGER): Your Hba1c today was: Lab Results Component Value Date HGBA1C 9.3 12/09/2019 meaning a 3 month average sugar of : 224 Your goal hba1c is under 7.0 to prevent fci diabetes complications ( eye , kidney and [...] hypoglycemia. Assessment & Plan (10/24/2018 1:00 PM HEALTHCARE CONSULTING MANAGER): Stable BG pattern 100-140 reported since last adjustment to plan. No change today. BG goals reviewed. Advised to lower Lantus by 2 units if FBG are < 100 x 2 days/wk. For planned activity, reduce Humalog dose by 1/2 at preceding meal. Assessment & Plan (09/19/2018 11:11 AM HEALTHCARE CONSULTING MANAGER): Your Hba1c today was: Lab Results Component Value Date HGBA1C 5.1 09/19/2018 meaning a 3 month average sugar of : 81 Your goal hba1c is under 7.0 to prevent fci diabetes complications ( eye , kidney and [...] time. Assessment & Plan (12/11/2017 10:47 AM HEALTHCARE CONSULTING MANAGER): Hba1c was .5.4 Today, 1800 calorie, consistent [...] drink = 0.6 oz pur e alcohol) [facility] Utilities Answer Date Recorded In the past 12 months has [employer], [employer], or water [employer] threatened to shut off services in your [...] How often do you attend chur or presybeterian services? Never 10/23/2024 Do you belong to [...] any time in the past 12 m [facility], were you homeless or living in a prison (including now)? No 10/23/2024 Personal Safety Answer Date Recorded Have you ever been in or are you currently in a harmful physical or emotional relationship or is someone making you feel afraid or unsafe? Denies 10/22/2024 Sex and Gender Information Value Date Recorded Sex Assigned at Not on file Legal Sex Male 7:27 PM HEALTHCARE CONSULTING MANAGER Gender Identity Not on file Sexual Orientation Not on file Last Filed Vital Signs Vital Sign Reading Time Taken Comments Blood Pressure 102/58 11/24/2024 9:58 AM HEALTHCARE CONSULTING MANAGER Pulse 75 11/24/2024 9:58 AM HEALTHCARE CONSULTING MANAGER Temperature 36.3 C (97.3 F) 10/25/2024 2:15 PM HEALTHCARE CONSULTING MANAGER Respiratory Rate 20 11/24/2024 9:58 AM HEALTHCARE CONSULTING MANAGER Oxygen Saturation 100% 10/25/2024 1:15 PM HEALTHCARE CONSULTING MANAGER Inhaled Oxygen Concentration - - Weight 91.3 kg (201 lb 4.5 oz) 10/22/2024 8:29 P M HEALTHCARE CONSULTING MANAGER Height 170.2 cm (5' 7.01 ) 11/24/2024 9:58 AM CS T Body Mass Index 31.52 10/22/2024 8:29 PM HEALTHCARE CONSULTING MANAGER Results * Cardiology Document Scan (12/10/2024 10:59 AM HEALTHCARE CONSULTING MANAGER) Anatomical Region Laterality Modality Other us Curt Grady MD CV CARDIAC SERVICES PRO CEDURES Final Result * POCT hemoglobin A1c (11/24/2024 10:01 AM HEALTHCARE CONSULTING MANAGER) Hemoglobin A1C, POC 4.9 4.0 - 5.6 % Blood 11/24/2024 10:0 1 AM HEALTHCARE CONSULTING MANAGER us Berthageno Pinto LOOM DOFFER POINT OF CARE TEST ORDERA BLES Final Result * (ABNORMAL) POCT glucose (11/24/2024 10:01 AM HEALTHCARE CONSULTING MANAGER) Glucose Blood, POC 131 mg/dL Blood 11/24/2024 10:0 1 AM HEALTHCARE CONSULTING MANAGER us Berthageno Pinto LOOM DOFFER POINT OF CARE TEST ORDERA BLES Final Result * DEVICE CHECK - IN OFFICE (11/05/2024 1:22 PM HEALTHCARE CONSULTING MANAGER) Anatomical Region Laterality Modality Other Narrative 11/13/2024 2:43 PM HEALTHCARE CONSULTING MANAGER Medtronic Micra AV2 Pacemaker. Dx; Symptomatic Bradycardia, [...] Result * POCT glucose (10/25/2024 12:56 PM HEALTHCARE CONSULTING MANAGER) Glucose, POC 74 70 - 199 mg/dL Blood 10/25/2024 12:5 6 PM HEALTHCARE CONSULTING MANAGER 10/25/2024 12:56 PM HEALTHCARE CONSULTING MANAGER Result [facility] Richard Paez [facility] POCT ORDERABLES - DEVICE Final Result Performing Organization Address [facility] de Phone Number [facility] [address] [place] [address] * POCT glucose (10/25/2024 8:10 AM HEALTHCARE CONSULTING MANAGER) Glucose, POC 100 70 - 199 mg/dL Blood 10/25/2024 8:10 AM HEALTHCARE CONSULTING MANAGER 10/25/2024 8:10 AM HEALTHCARE CONSULTING MANAGER Nabeel Paez [facility] POCT ORDERABLES - DEVICE Final Result Performing Organization Address [facility] Co de [place] [address] [place] [address] * POCT glucose (10/25/2024 7:43 AM HEALTHCARE CONSULTING MANAGER) Glucose, POC 78 70 - 199 mg/dL Blood 10/25/2024 7:43 AM HEALTHCARE CONSULTING MANAGER 10/25/2024 7:43 AM HEALTHCARE CONSULTING MANAGER Nabeel Paez DO LAB POCT ORDERABLES - DEVICE Final Result Performing Organization Address [facility] Co de Phone Number [place] [address] Department [place] [address] * (ABNORMAL) eGFR (10/25/2024 5:48 AM HEALTHCARE CONSULTING MANAGER) eGFR 9(L) >=60 mL/min/1. 73 m2 Comment: [...] last reviewed 2021. Blood 10/25/2024 5:48 AM HEALTHCARE CONSULTING MANAGER 10/25/2024 6:03 AM HEALTHCARE CONSULTING MANAGER Raisa Scherer LOOM DOFFER LAB BLOOD ORDERABLES Jeaneth l Result Performing Organization Address City/[facility]/ZIP Co de Phone Number [place] [address] Department of Laboratories [place], [place] [id number] * (ABNORMAL) CBC without differential (10/25/2024 5:48 AM HEALTHCARE CONSULTING MANAGER) WBC 4.6 3.8 - 9.9 K/cumm Hgb 8.3(L) 13.0 - 17.5 g/dL [facility] Hct 28.1(L) 38.9 - 50.3 % [facility] Plt 187 150 - 400 K/cumm [facility] MPV 10.6 9.1 - 12.3 fL [facility] RBC 2.82(L) 4.30 - 5.80 M/cumm [facility] MCV 99.6(H) 81.3 - 96.4 fL [facility] 29.4 27.1 - 33.3 pg [facility] MCHC 29.5(L) 32.3 - 35.7 g/dL [facility] RDW CV 16.3(H) 11.1 - 14.9 % [facility] RDW SD 60.4(H) 35.7 - 48.1 fL [facility] NRBC abs 0.00 0.00 - 0.01 K/cumm [facility] Blood 10/25/2024 5:48 AM HEALTHCARE CONSULTING MANAGER 10/25/2024 6:03 AM HEALTHCARE CONSULTING MANAGER us Raisa Scherer NP LAB BLOOD ORDERABLES Jeaneth l Result [facility] [address] Department [place] [address] * (ABNORMAL) Basic metabolic panel (10/25/2024 5:48 AM HEALTHCARE CONSULTING MANAGER) Sodium 135 135 - 145 mmol/L Potassium, pl 4.3 3.3 - 4.9 mmol/L [facility] Chloride 93(L) 97 - 110 mmol/L [facility] CO2 27 22 - 32 mmol/L [facility] Anion gap 15 2 - 15 mmol/L [facility] BUN 30(H) 6 - 25 mg/dL [facility] Creatinine 5.94(H) 0.80 - 1.30 mg/dL [facility] Glucose 76 70 - 199 mg/dL [facility] Comment: Interpretive Data Fasting glucose >/= [...] 2022. Calcium 8.8 8.5 - 10.3 mg/dL [facility] Blood 10/25/2024 5:48 AM HEALTHCARE CONSULTING MANAGER 10/25/2024 6:03 AM HEALTHCARE CONSULTING MANAGER Raisa Scherer LOOM DOFFER LAB BLOOD ORDERABLES Jeaneth l Result Performing Organization Address [facility] Co de Phone Number [facility] [address] [facility] [place] [address] * POCT glucose (10/25/2024 2:25 AM HEALTHCARE CONSULTING MANAGER) Glucose, POC 81 70 - 199 mg/dL Blood 10/25/2024 2:25 AM HEALTHCARE CONSULTING MANAGER 10/25/2024 2:25 AM HEALTHCARE CONSULTING MANAGER Nabeel Paez DO [facility] POCT ORDERABLES - DEVICE Final Result Performing Organization Address [facility] de Phone Number [facility] [address] [facility] [place] [address] * POCT glucose (10/24/2024 8:31 PM HEALTHCARE CONSULTING MANAGER) Glucose, POC 120 70 - 199 mg/dL Blood 10/24/2024 8:31 PM HEALTHCARE CONSULTING MANAGER 10/24/2024 8:31 PM HEALTHCARE CONSULTING MANAGER Nabeel Paez DO [facility] POCT ORDERABLES - DEVICE Final Result Performing Organization Address [facility] Co de Phone Number [facility] [address] [facility] [place] [address] * POCT glucose (10/24/2024 4:33 PM HEALTHCARE CONSULTING MANAGER) Glucose, POC 85 70 - 199 mg/dL Blood 10/24/2024 4:33 PM HEALTHCARE CONSULTING MANAGER 10/24/2024 4:33 PM HEALTHCARE CONSULTING MANAGER Nabeel Paez LAB POCT ORDERABLES - DEVICE Final Result Performing Organization Address City/[facility]/ZIP Co de Phone Number [place] [address] [facility] [place] [address] * POCT glucose (10/24/2024 2:03 PM HEALTHCARE CONSULTING MANAGER) Glucose, POC 83 70 - 199 mg/dL Blood 10/24/2024 2:03 PM HEALTHCARE CONSULTING MANAGER 10/24/2024 2:03 PM HEALTHCARE CONSULTING MANAGER [facility] POCT ORDERABLES - DEVICE Final Result Performing Organization Address [facility] Co de Phone Number [place] [address] [facility] [place] [address] * POCT glucose (10/24/2024 11:26 AM HEALTHCARE CONSULTING MANAGER) Glucose, POC 85 70 - 199 mg/dL Blood 10/24/2024 11:2 6 AM HEALTHCARE CONSULTING MANAGER 10/24/2024 11:26 AM HEALTHCARE CONSULTING MANAGER Nabeel Paez [facility] POCT ORDERABLES - DEVICE Final Result Performing Organization Address [facility] Co de Phone Number [place] [address] [facility] [place] [address] * POCT glucose (10/24/2024 7:30 AM HEALTHCARE CONSULTING MANAGER) Glucose, POC 94 70 - 199 mg/dL Blood 10/24/2024 7:30 AM HEALTHCARE CONSULTING MANAGER 10/24/2024 7:30 AM HEALTHCARE CONSULTING MANAGER Nabeel Paez LAB POCT ORDERABLES - DEVICE Final Result Performing Organization Address City/[facility] [place] [address] [address] [facility] [place] [address] * TSH (10/24/2024 5:12 AM HEALTHCARE CONSULTING MANAGER) Thyroid Stimulating Hormone 0.48 0.30 - 4.20 mcIUnit/mL Blood 10/24/2024 5:12 AM HEALTHCARE CONSULTING MANAGER 10/24/2024 5:23 AM HEALTHCARE CONSULTING MANAGER Sherrill Christianson MD LAB BLOOD ORDERABLES Final Result Performing Organization Address [facility] Co de Phone Number [place] [address] [place] [address] * (ABNORMAL) eGFR (10/24/2024 4:59 AM HEALTHCARE CONSULTING MANAGER) eGFR 13(L) >=60 mL/min/1. 73 m2 Comment: [...] last reviewed 2021. Blood 10/24/2024 4:59 AM HEALTHCARE CONSULTING MANAGER 10/24/2024 5:23 AM HEALTHCARE CONSULTING MANAGER us Raisa Scherer NP LAB BLOOD ORDERABLES Jeaneth l Result Performing Organization Address City/[facility]/ZIP Co de Phone Number [place] [address] [place] [address] * (ABNORMAL) CBC without differential (10/24/2024 4:59 AM HEALTHCARE CONSULTING MANAGER) WBC 5.1 3.8 - 9.9 K/cumm Hgb [...] K/cumm [facility] Blood 10/24/2024 4:59 AM HEALTHCARE CONSULTING MANAGER 10/24/2024 5:20 AM HEALTHCARE CONSULTING MANAGER us Raisa Scherer LOOM DOFFER LAB BLOOD ORDERABLES Jeaneth mari Result [facility] [address] Department [place] [address] * (ABNORMAL) Basic metabolic panel (10/24/2024 4:59 AM HEALTHCARE CONSULTING MANAGER) Sodium 136 135 - 145 mmol/L Potassium, pl 4.2 3.3 - 4.9 mmol/L [facility] Chloride 94(L) 97 - 110 mmol/L [facility] [...] 2022. Calcium 9.1 8.5 - 10.3 mg/dL [facility] Blood 10/24/2024 4:59 AM HEALTHCARE CONSULTING MANAGER 10/24/2024 5:20 AM HEALTHCARE CONSULTING MANAGER Raisa Scherer LOOM DOFFER LAB BLOOD ORDERABLES Jeaneth l Result Performing Organization Address [facility]/ZIP Co de Phone Number [place] [address] [facility] [employer] [place], [place] [id number] * POCT glucose (10/24/2024 2:39 AM HEALTHCARE CONSULTING MANAGER) Glucose, POC 123 70 - 199 mg/dL Blood 10/24/2024 2:39 AM HEALTHCARE CONSULTING MANAGER 10/24/2024 2:39 AM HEALTHCARE CONSULTING MANAGER Nabeel Paez DO [facility] POCT ORDERABLES - DEVICE Final Result Performing Organization Address [facility] Co de Phone Number [place] [address] [facility] [place] [address] * POCT glucose (10/23/2024 10:25 PM HEALTHCARE CONSULTING MANAGER) Glucose, POC 173 70 - 199 mg/dL Blood 10/23/2024 10:2 5 PM HEALTHCARE CONSULTING MANAGER 10/23/2024 10:25 PM HEALTHCARE CONSULTING MANAGER Nabeel Paez DO [facility] POCT ORDERABLES - DEVICE Final Result Performing Organization Address [facility] Co de Phone Number [place] [address] [facility] [place] [address] * POCT glucose (10/23/2024 8:04 PM HEALTHCARE CONSULTING MANAGER) Glucose, POC 70 70 - 199 mg/dL Blood 10/23/2024 8:04 PM HEALTHCARE CONSULTING MANAGER 10/23/2024 8:04 PM HEALTHCARE CONSULTING MANAGER Nabeel Paez LAB POCT ORDERABLES - DEVICE Final Result Performing Organization Address City/[facility] Co de Phone Number [place] [address] [place] [address] * POCT glucose (10/23/2024 5:42 PM HEALTHCARE CONSULTING MANAGER) Pathologist [facility] Glucose, POC 90 70 - 199 mg/dL Blood 10/23/2024 5:42 PM HEALTHCARE CONSULTING MANAGER 10/23/2024 5:42 PM HEALTHCARE CONSULTING MANAGER Nabeel Paez [facility] POCT ORDERABLES - DEVICE Final Result Performing Organization Address [facility] de Phone Number [place] [address] [place] [address] * Hepatitis panel, acute Blood (10/23/2024 2:45 PM HEALTHCARE CONSULTING MANAGER) [facility] Hep A IgM Nonreactive Nonreactive Comment: Interpretive Data: If Hep A IgM Ab is reported as Equivocal, a new sample should be drawn in two weeks for testing. Current interpretive data was last revised on 20. Hep B core IgM Nonreactive Nonreactive [facility] Comment: Interpretive Data If HepB Core IgM Ab is reported as Equivocal, a new sample should be drawn in two weeks for testing. Current interpretive data was last revised on 20. Hep C Ab Nonreactive Nonreactive [facility] Comment: Interpretive Data Nonreactive: Antibodies [...] last revised on 2020. HepBsAg Nonreactive Nonreactive [facility] Blood 10/23/2024 2:45 PM HEALTHCARE CONSULTING MANAGER 10/23/2024 2:46 PM HEALTHCARE CONSULTING MANAGER Sherrill Christianson MD LAB MICROBIOLOGY - GENERAL ORDERABLES Final Result Performing Organization Address [facility] Co de Phone Number NIDIA COTE [address] [address] [place] [address] * Hepatitis B surface antibody (immune status) Blood (10/23/2024 2:45 PM HEALTHCARE CONSULTING MANAGER) HBsAb (immune status) Nonreactive Comment: Interpretive Data [...] revised on 20. Blood 10/23/2024 2:45 PM HEALTHCARE CONSULTING MANAGER 10/23/2024 2:46 PM HEALTHCARE CONSULTING MANAGER Sherrill Christianson MD LAB MICROBIOLOGY - GENERAL ORDERABLES Final Result Performing Organization Address [facility] Co de Phone Number NIDIA COTE [address] Department [place] [address] * (ABNORMAL) POCT glucose (10/23/2024 12:57 PM HEALTHCARE CONSULTING MANAGER) Glucose, POC 69(L) 70 - 199 mg/dL Blood 10/23/2024 12:5 7 PM HEALTHCARE CONSULTING MANAGER 10/23/2024 12:57 PM HEALTHCARE CONSULTING MANAGER Nabeel Paez DO LAB POCT ORDERABLES - DEVICE Final Result Performing Organization Address [facility] Co de Phone Number NIDIA COTE [address] [address] Department [place] [address] * POCT glucose (10/23/2024 7:47 AM HEALTHCARE CONSULTING MANAGER) Glucose, POC 81 70 - 199 mg/dL Blood 10/23/2024 7:47 AM HEALTHCARE CONSULTING MANAGER 10/23/2024 7:47 AM HEALTHCARE CONSULTING MANAGER Sylvester Engel MD LAB POCT ORDERABLES - DEVICE Final Result Performing Organization Address City/[facility]/ZIP Co de Phone Number ALYSSAALANNAH COTE [address] Department [place] [address] * (ABNORMAL) eGFR (10/23/2024 5:27 AM HEALTHCARE CONSULTING MANAGER) eGFR 11(L) >=60 mL/min/1. 73 m2 Comment: [...] last reviewed 2021. Blood 10/23/2024 5:27 AM HEALTHCARE CONSULTING MANAGER 10/23/2024 5:32 AM HEALTHCARE CONSULTING MANAGER us Raisa Scherer NP LAB BLOOD ORDERABLES Jeaneth l Result ALYSSAALANNAH COTE [address] Department [place] [address] * (ABNORMAL) Differential, auto (10/23/2024 5:27 AM HEALTHCARE CONSULTING MANAGER) Neutrophil abs 4.1 1.5 - 6.5 K/cumm Imm gran abs 0.1 0.0 - 0.1 K/cumm [facility] Lymphocyte abs 0.4(L) 0.8 - 3.3 K/cumm [facility] Monocyte abs 0.7 0.2 - 0.8 K/cumm [facility] Eosinophil abs 0.1 0.0 - 0.5 K/cumm [facility] Basophil abs 0.0 0.0 - 0.1 K/cumm [facility] Neutrophil pct 76.5 % [facility] Comment: Interpretive Data Percent cell count reference ranges are not reported, since discordance with absolute values may lead to misinterpretation of CBC data. Current Interpretive Data was last revised on 2018. Imm gran pct 1.1 % [facility] Comment: Interpretive Data Percent cell count reference ranges are not reported, since discordance with absolute values may lead to misinterpretation of CBC data. Current Interpretive Data was last revised on 2018. Lymphocyte pct 7.9 % [facility] Comment: Interpretive Data Percent cell count reference ranges are not reported, since discordance with absolute values may lead to misinterpretation of CBC data. Current Interpretive Data was last revised on 2018. Monocyte pct 12.7 % [facility] Comment: Interpretive Data Percent cell count reference ranges are not reported, since discordance with absolute values may lead to misinterpretation of CBC data. Current Interpretive Data was last revised on 2018. Eosinophil pct 1.1 % [facility] Comment: Interpretive Data Percent cell count reference ranges are not reported, since discordance with absolute values may lead to misinterpretation of CBC data. Current Interpretive Data was last revised on 2018. Basophil pct 0.7 % [facility] Comment: Interpretive Data Percent cell count reference ranges are not reported, since discordance with absolute values may lead to misinterpretation of CBC data. Current Interpretive Data was last revised on 2018. Blood 10/23/2024 5:27 AM HEALTHCARE CONSULTING MANAGER 10/23/2024 5:30 AM HEALTHCARE CONSULTING MANAGER us Raisa Scherer NP LAB BLOOD ORDERABLES Jeaneth mari Result ALYSSAALANNAH [address] [address] Department [place] [address] * (ABNORMAL) CBC with auto differential (10/23/2024 5:27 AM HEALTHCARE CONSULTING MANAGER) Pathologist [facility] WBC 5.3 3.8 - 9.9 K/cumm Hgb 8.8(L) 13.0 - 17.5 g/dL [facility] Hct 28.9(L) 38.9 - 50.3 % [facility] Plt 179 150 - 400 K/cumm [facility] MPV 10.4 9.1 - 12.3 fL [facility] RBC 2.86(L) 4.30 - 5.80 M/cumm [facility] CH MCV 101.0(H) 81.3 - 96.4 fL [facility] CH MCH 30.8 27.1 - 33.3 pg [facility] CH MCHC 30.4(L) 32.3 - 35.7 g/dL [facility] CH RDW CV 17.2(H) 11.1 - 14.9 % [facility] CH RDW SD 63.7(H) 35.7 - 48.1 fL [facility] NRBC abs 0.00 0.00 - 0.01 K/cumm [facility] Blood 10/23/2024 5:27 AM HEALTHCARE CONSULTING MANAGER 10/23/2024 5:30 AM HEALTHCARE CONSULTING MANAGER Raisa Scherer LOOM DOFFER LAB BLOOD ORDERABLES Jeaneth l Result Performing Organization Address [facility] Co de Phone Number [facility] [address] [address] [facility] [place] [address] * Phosphorus (10/23/2024 5:27 AM HEALTHCARE CONSULTING MANAGER) [facility] Phosphorus, pl 4.5 2.3 - 4.5 mg/dL Blood 10/23/2024 5:27 AM HEALTHCARE CONSULTING MANAGER 10/23/2024 5:30 AM HEALTHCARE CONSULTING MANAGER Raisa Scherer LOOM DOFFER LAB BLOOD ORDERABLES Jeaneth l Result Performing Organization Address City/[facility] Co de Phone Number [facility] [address] [address] Department [place] [address] * Magnesium (10/23/2024 5:27 AM HEALTHCARE CONSULTING MANAGER) Magnesium 2.1 1.4 - 2.5 mg/dL Blood 10/23/2024 5:27 AM HEALTHCARE CONSULTING MANAGER 10/23/2024 5:30 AM HEALTHCARE CONSULTING MANAGER us Raisa Scherer LOOM DOFFER LAB BLOOD ORDERABLES Jeaneth l Result CERNER [address] [address] Department [place] [address] * (ABNORMAL) Comprehensive metabolic panel (10/23/2024 5:27 AM HEALTHCARE CONSULTING MANAGER) Sodium 137 135 - 145 mmol/L Potassium, [...] CH AST 6(L) 10 - 50 Units/L [facility] Blood 10/23/2024 5:27 AM HEALTHCARE CONSULTING MANAGER 10/23/2024 5:30 AM HEALTHCARE CONSULTING MANAGER Raisa Scherer LOOM DOFFER LAB BLOOD ORDERABLES Jeaneth l Result Performing Organization Address [facility] de Phone Number NIDIA [address] [address] [facility] [place] [address] * POCT glucose (10/23/2024 3:04 AM HEALTHCARE CONSULTING MANAGER) Glucose, POC 84 70 - 199 mg/dL Blood 10/23/2024 3:04 AM HEALTHCARE CONSULTING MANAGER 10/23/2024 3:04 AM HEALTHCARE CONSULTING MANAGER Sylvester Engel MD LAB POCT ORDERABLES - DEVICE Final Result Performing Organization Address [facility] Phone [facility] [address] [address] [facility] [facility] [place] [address] * POCT glucose (10/22/2024 10:42 PM HEALTHCARE CONSULTING MANAGER) Glucose, POC 101 70 - 199 mg/dL Blood 10/22/2024 10:4 2 PM HEALTHCARE CONSULTING MANAGER 10/22/2024 10:42 PM HEALTHCARE CONSULTING MANAGER Sylvester Engel MD LAB POCT ORDERABLES - DEVICE Final Result Performing Organization Address [facility] de Phone Number [facility] [address] [address] [facility] [place] [address] * POCT glucose (10/22/2024 8:42 PM HEALTHCARE CONSULTING MANAGER) Glucose, POC 114 70 - 199 mg/dL Blood 10/22/2024 8:42 PM HEALTHCARE CONSULTING MANAGER 10/22/2024 8:42 PM HEALTHCARE CONSULTING MANAGER Guru Miller MD LAB POCT ORDERABLES - DEVICE Final Result Performing Organization Address [facility]/State/ZIP Co de Phone Number NIDIA COTE [address] [address] Department [place] [address] * (ABNORMAL) HM DIABETES EYE EXAM (08/13/2024 9:40 AM CDT) Historical Provider HEALTH MAINTENANCE Edited Result - Final * (ABNORMAL) Albumin Creatinine Ratio, Urine (03/10/2024 8:46 AM CDT) Albumin Ur 3,169.5 mg/L Comment: Interpretive Data No reference range established. Current interpretive data was last revised 2019. Creatinine Ur 47.7 mg/dL [facility] Comment: Interpretive Data No reference range established. Current interpretive data was last revised 2019. Albumin Creatinine Ratio, Ur 6,645(H) 1 - 29 mg/g [facility] Urine 03/10/2024 8:46 AM CDT 03/11/2024 9:11 AM CDT Bertha Pinto NP LAB URINE ORDERABLES Jeaneth l Result NIDIA COTE [address] [address] Department [place] [address] * (ABNORMAL) Lipid panel (03/03/2024 9:29 AM [...] revised on 2018. Triglycerides 75 <=149 mg/dL [facility] Comment: Interpretive Data Ages < [...] revised on 2018. Chol/HDL ratio 2 [facility]YSS[facility]ANNAH OCTE Blood 03/03/2024 9:29 AM CDT 03/03/2024 4:40 PM CDT us Bertha Pinto NP LAB BLOOD ORDERABLES Jeaneth l Result NIDIA COTE [address] [address] Department [place] [address] * CT Abdomen Pelvis WO Contrast (12/05/2021 11:53 AM HEALTHCARE CONSULTING MANAGER) Anatomical Region Laterality Modality Body N/A Computed Tomogra phy 12/05/2021 12:0 4 PM HEALTHCARE CONSULTING MANAGER Impressions 12/05/2021 12:04 PM HEALTHCARE CONSULTING MANAGER Bone windows show no suspicious lytic or blastic lesions. IMPRESSION: 1. 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 2. 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 Electronically signed by: Ryan Cameron M.D. Narrative 12/05/2021 12:04 PM HEALTHCARE CONSULTING MANAGER EXAMINATION: Computed tomography of the abdomen/pelvis without [...] adeniform shape. 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 Adjacent fat stranding is likely related [...] adeniform shape. 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 Adjacent fat stranding is likely related [...]
--- OUTSIDE RECORDS SUMMARY | 2024-12-30 20:00 | XMS_ITS | Referral Summary ---
Author Organization [facility] Address [address] [place] [address] Care Team Providers Care Accounting System Expert Name Role Phone Mariza Carrion MD Primary Care Provider Source Comments [facility],non-owned Affiliates and Associated Physician Practices is amultiple site organization consisting of ambulatory clinics and hospital sitesin [place], [place], [place] and [place]. This disclosure is being madepursuant to the Care Everywhere program and may not contain all information available regarding this patient. Last updated 18.[facility] Encounters Date Type Department Care Team Description 11/04/2024 Orders Only [facility] - Urology [address], [address] [place] [address] Anita Shay MA Urinary retention [...] Use pads 5 times daily 09/19/2018 Active zmdva-7-[id number] ethyl esters (LOVAZA) 1 g capsule Take [...] FOR MUSCLE SPASM 09/03/2024 Active HYDROcodone-aceta minophen ([place]) 5-325 MG tablet 12/15/2023 Active Lokelma 10 [...] and heating? Not hard at all 04/06/2023 [facility] [place] of Occupat ional Health - Occupational Stress [...] Comments Blood Pressure 147/70 09/22/2024 8:55 AM STEELER Pulse 68 09/22/2024 8:55 AM STEELER Temperature 36.2 C (97.2 F) 09/22/2024 7:24 AM STEELER Respiratory Rate 15 09/22/2024 8:55 AM STEELER Oxygen Saturation 92% 09/22/2024 8:55 AM STEELER Inhaled Oxygen Concentration 25% 04/11/2023 7 :26 PM CDT Weight 87.9 kg (193 lb 12.6 oz) 09/22/2024 7:24 AM STEELER Height 170.2 cm (5' 7 ) 09/22/2024 7:24 AM STEELER Body Mass Index 30.35 09/22/2024 7:24 AM STEELER Functional Status Functional Status Response Date of [...] Info) Description 03/23/2025 8:00 AM CDT Appointment [facility] [address] [place] [address], [facility] [address] [place] [address] Dank George MD [address] [place] [address] [place] [phone] Medical Devices Implanted Type Area Education Rn Device Identifier Shelf Expiration Date Model / Serial / Lot Mynxgrip Vascular Closure Device Implanted:Qty: 1 on 04/11/2023 by Matt Beyer DO at [facility] Right: Groin 01/19/2025 [id number] / [id number] / [id number] 5tch Cv 6x1cm [employer] Decellularized Implanted:Qty: 1 on 04/20/2023 by Matt Beyer DO at [facility] N/A: Other (See Descriptio n) [employer] 01/28/2024 [id number] / / [id number] Description:LEFT FEMORAL ART BARI Procedures Procedure Name [...] AM CDT 04/07/2023 8:31 AM CDT Narrative [facility] - 04/07/2023 9:28 AM CDT Non Reactive - Antibodies to Hepatitis C virus (HCV) were not detected, result does not exclude early acute HCV infection. Marito Rios MD LAB - CHEMISTRY RJ [facility]YAL[facility] Organization Address City/State/ZIP Co de Phone Number [facility] [address] [phone] from Last 3 Months or Most Recently Relevant to Health Maintenance Advance Directives Documents on File Type Date Recorded Patient Commissioned [employer] Expl anation Adv Directive/Living Will/POA 05/02/2023 3:49 PM * Full Code (Latest Code Status on File) Date Activated Date Inactivated Comments 04/06/2023 9:49 AM 05/01/2023 4:44 PM Care Teams Accounting System Expert Relationship Specialty Start Date End Date Mariza Carrion MD [address] [place] [id number] PCP - General Family Medicine 08/26/18
--- OUTSIDE RECORDS SUMMARY | 2024-12-30 20:00 | XMS_ITS | Clinical Summary ---
Author Organization [facility] Address [address] [place] [id number] Phone Care Team Providers Care Guest History Clerk Name Role Phone Mariza Carrion MD Primary [...] dir 0 11/12/2017 Active ergocalciferol (VITAMIN D-2) 88135 units capsule Take 1 capsule (50,000 Units total) by mouth 2 (two) times a week. 28 capsule 3 03/27/2019 Active hydrALAZINE (APRESOLINE) 100 MG tablet TAKE 1 TABLET TWICE A DAY 180 tablet 4 04/30/2019 Active aspirin 81 MG chewable tablet one p.o. qd 05/23/2012 Active ergocalciferol (VITAMIN D-2) 69074 units capsule one p.o. capsule once a [...] 2012 Influenza Vaccine (#1) 2024 Care Teams Guest History Clerk Relationship Specialty Start Date End Date Mariza Carrion MD [address] [place] [address] PCP - General Internal Medicine 01/06/19
--- OUTSIDE RECORDS SUMMARY | 2024-12-30 20:00 | XMS_ITS | Clinical Summary ---
Author Organization [facility] Address [address] [place] [phone] Care Team Providers Care Panel Beater Name Role Phone Efren Hoyos MD Unavailable Dank Hicks MD Unavailable [phone] Mariza Carrion MD Primary Care Provider Allergies [...] 12/09/2019 Assessment & Plan (09/03/2023 9:28 AM VARNISH BLENDER): Chronic problem. [facility] [place]: //Saturdays. LUE fistula. Assessment & Plan (03/05/2023 9:59 AM CDT): Chronic problem. [facility] in [place]: //Saturdays. LUE fistula. ESRD on dialysis 05/22/2019 Hyperlipidemia associated with type 2 diabetes fouzia victoria 05/22/2019 Assessment & Plan (11/24/2024 10:10 AM VARNISH BLENDER): Chronic problem. Controlled on current Atorvastatin 20mg. Last lipid panel: 03/03/24 LDL=33, TG=75. Assessment & Plan (03/03/2024 8:45 AM CDT): Chronic problem. Controlled on current Atorvastatin 20mg. Last lipid panel: 03/05/23 LDL=57, YA=904. Will update labs today. Does not mychart. Verified phone #/address to contact re: results. Assessment & Plan (09/03/2023 9:28 AM VARNISH BLENDER): Chronic problem. Controlled on current Atorvastatin 20mg. Last lipid panel: 03/05/23 LDL=57, KD=112. Assessment & Plan (03/05/2023 9:53 AM CDT): Chronic problem. Controlled on current Atorvastatin 20mg. Last lipid panel: 12/05/21 LDL=36, XT=227. Will update labs today. Verified phone #/address to contact re: results. Assessment & Plan (11/02/2022 2:47 PM VARNISH BLENDER): Chronic, well controlled Low fat Low cholesterol [...] Lipitor Assessment & Plan (09/07/2020 2:26 PM VARNISH BLENDER): Goal of treatment , LDL cholesterol less [...] panel Assessment & Plan (12/09/2019 2:03 PM VARNISH BLENDER): Very high TG Add Vascepa Assessment & [...] statin therapy Coronary artery disease invo lving [place] coronary artery of [place] heart without angina pectoris 10/04/2017 Hx of CABG 10/04/2017 Class 2 severe obesity due t o excess calories with serious comorbidity and body mass index (BMI) of 38.0 to 38.9 in adult 05/22/2017 Assessment & Plan (10/24/2018 12:58 PM VARNISH BLENDER): Making progress with diet efforts. Continue Assessment & Plan (02/08/2018 11:01 AM CDT): Importance of following diet and exercising discussed. Hypertension associated with diabetes 05/22/2017 Assessment & Plan (11/24/2024 10:11 AM VARNISH BLENDER): Chronic problem. Controlled on current losartan 100mg daily, amlodipine 10mg daily Assessment & Plan (03/03/2024 8:45 AM CDT): Chronic problem. BP elevated upon arrival. Controlled on current Carvedilol 25mg bid, losartan 100mg daily. No changes at this time. Will update labs today. Does not mychart. Verified phone #/address to contact re: results. Assessment & Plan (09/03/2023 9:28 AM VARNISH BLENDER): Chronic problem. BP elevated upon arrival. Controlled [...] renal Assessment & Plan (10/24/2018 12:57 PM VARNISH BLENDER): Controlled. Continue current medication plan and follow up with cardiology Assessment & Plan (06/18/2018 2:30 PM CDT): BP controlled on current medication plan. Continue follow up with nephrology Assessment & Plan (02/08/2018 11:00 AM CDT): Continue same medication Assessment & Plan (12/11/2017 10:24 AM VARNISH BLENDER): Goal blood pressure is less than 140/85 [...] mellitus Assessment & Plan (11/24/2024 10:16 AM VARNISH BLENDER): Chronic problem, controlled on current regimen. 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 Assessment & Plan (09/03/2023 9:27 AM VARNISH BLENDER): Chronic problem, controlled on current regimen. 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 Assessment & Plan (03/05/2023 10:13 AM CDT): Chronic problem, controlled on current regimen. 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 Will update labs today. Verified phone #/address to contact re: results. Assessment & Plan (11/02/2022 2:43 PM VARNISH BLENDER): Well controlled, with risk of hypoglycemia Insuli [...] Ross Assessment & Plan (09/07/2020 2:26 PM VARNISH BLENDER): Hba1c was Lab Results Component Value Date [...] Trulicity. Assessment & Plan (12/09/2019 2:03 PM VARNISH BLENDER): Your Hba1c today was: Lab Results Component Value Date HGBA1C 9.3 12/09/2019 meaning a 3 month average sugar of : 224 Your goal hba1c is under 7.0 to prevent penitentiary diabetes complications ( eye , kidney and [...] hypoglycemia. Assessment & Plan (10/24/2018 1:00 PM VARNISH BLENDER): Stable BG pattern 100-140 reported since last adjustment to plan. No change today. BG goals reviewed. Advised to lower Lantus by 2 units if FBG are < 100 x 2 days/wk. For planned activity, reduce Humalog dose by 1/2 at preceding meal. 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 Assessment & Plan (12/11/2017 10:47 AM VARNISH BLENDER): Hba1c was .5.4 Today, 1800 calorie, consistent [...] 05/22/2019 Assessment & Plan (09/19/2018 11:20 AM VARNISH BLENDER): Prevention and treatment of hypoglycemia were discussed [...] therapy Assessment & Plan (10/24/2018 12:57 PM VARNISH BLENDER): Check lipid panel Assessment & Plan (06/18/2018 2:31 PM CDT): Continue statin therapy Assessment & Plan (02/08/2018 11:00 AM CDT): Continue atorvastatin Assessment & Plan (12/11/2017 10:45 AM VARNISH BLENDER): Goal of treatment , LDL cholesterol less [...] Type Department Care Team Description 12/30/2024 Telephone [facility] Cardiology [address] [place] [address] [place] [phone] Dank Hicks MD 12/22/2024 Orders Only [facility] Cardiology [address] [address] [address] [place] [phone] Curt Grady MD 11/25/2024 Telephone [facility] Diabetes and Endocrinology [address] [place] [phone] Bertha Pinto NP [employer] 11/25/2024 Telephone [facility] Diabetes and Endocrinology [address] [place] [phone] Bertha Pinto NP Med Management (Humalog ) 11/24/2024 11:00 AM VARNISH BLENDER Office Visit [facility] Diabetes and Endocrinology [address] [place] [phone] Bertha Pinto, JUAREZ Type 2 diabetes mellitus with hyperglycemia, with long-term current use of insulin (CMS/HCC) (Primary Dx); Hypertension associated with diabetes (HCC); Hyperlipidemia associated with type 2 diabetes mellitus (HCC) 11/05/2024 1:30 PM VARNISH BLENDER Ancillary Procedure [facility] Cardiology [address] [facility] [address] [place] [phone] Cardiac pacemaker in situ; Asystole (HCC); Syncope and collapse; Symptomatic bradycardia 11/04/2024 Orders Only [facility] Cardiology [address] [place] [address] [place] [phone] Dank Hicks MD Cardiac pacemaker in situ (Primary Dx); Asystole (HCC); Syncope and collapse; Symptomatic bradycardia 10/24/2024 12:58 PM VARNISH BLENDER Anesthesia Event [facility] Cardiac Catheterization Lab [address] [place] [address] Bahman Arrington MD Sheehan, Whitney Elise, CRNA 10/24/2024 12:30 PM VARNISH BLENDER - 10/24/2024 2:30 PM VARNISH BLENDER Surgery [facility] Cardiac Catheterization Lab [address] [place] [id number] Darien Jamil Jr., MD LEADLESS, SINGLE CHAMBER PACEMAKER (PPM) INSERTION 10/23/2024 Orders Only [facility] Cardiac Catheterization Lab [address] [place] [phone] Darien Jamil Jr., MD Syncope and collapse (Primary Dx) 10/22/2024 8:28 PM VARNISH BLENDER - 10/25/2024 3:09 PM VARNISH BLENDER Hospital Encounter [address] [address] Guru Miller MD Brother, Michele, MD Durante, Mitchell Joseph, Syncope and collapse [R55] (Primary Dx); ESRD on dialysis ([facility]) [N18.6, Z99.2]; 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, without long-term current use of insulin ([facility]) ([facility]) [E11.22, N18.6, Z99.2]; Syncope and collapse; Type 2 diabetes mellitus with hyperglycemia, with long-term current use of insulin ([facility]) [E11.65, Z79.4]; Asystole ([facility]) ([facility]) [I46.9] Discharge Disposition: Discharge to home or [...] drink = 0.6 oz pur e alcohol) [facility] Utilities Answer Date Recorded In the past 12 months has [employer] gas, oil, or water [employer] threatened to shut off services in your [...] often do you attend chur ch or baptism services? Never 10/23/2024 Do you belong to any clubs o r organizations such as baptism groups, unions, fraternal or athletic groups, or [...] any time in the past 12 m [facility], were you homeless or living [...] on file Legal Sex Male 7:27 PM VARNISH BLENDER Gender Identity Not on file Sexual Orientation Not on file Obstetrics History Last Filed Vital Signs Vital Sign Reading Time Taken Comments Blood Pressure 102/58 11/24/2024 9:58 AM VARNISH BLENDER Pulse 75 11/24/2024 9:58 AM VARNISH BLENDER Temperature 36.3 C (97.3 F) 10/25/2024 2:15 PM VARNISH BLENDER Respiratory Rate 20 11/24/2024 9:58 AM VARNISH BLENDER Oxygen Saturation 100% 10/25/2024 1:15 PM VARNISH BLENDER Inhaled Oxygen Concentration - - Weight 91.3 kg (201 lb 4.5 oz) 10/22/2024 8:29 P M VARNISH BLENDER Height 170.2 cm (5' 7.01 ) 11/24/2024 9:58 AM CS T Body Mass Index 31.52 10/22/2024 8:29 PM VARNISH BLENDER Plan of Treatment Health Maintenance Due Date [...] 10/23/2024, 022 Medical Devices Implanted Type Area Wrapper Cashier Device Identifier Shelf Expiration Date Model / Serial / Lot [employer]onic [employer] Micra 2 Av Synchronous Leadless Ventricular Pacemaker [id number] - [id number] - [id number] Implanted:Qty: 1 on 10/24/2024 by Darien Jamil Jr., MD at [facility] [employer] 02/16/2026 [id number] / [id number] / Procedures Procedure Name Priority Date/Time Associated Diagnosis Comments CARDIOLOGY DOCUMENT SCAN Routine 12/10/2024 10:59 AM VARNISH BLENDER POCT GLUCOSE Routine 11/24/2024 10:01 AM VARNISH BLENDER Type 2 diabetes mellitus with hyperglycemia, with long-term current use of insulin (CMS/HCC) POCT HEMOGLOBIN A1C Routine 11/24/2024 1 0:01 AM VARNISH BLENDER Type 2 diabetes mellitus with hyperglycemia, with long-term current use of insulin (CMS/HCC) DEVICE CHECK - IN OFFICE Routine 11/05/2024 1:22 PM VARNISH BLENDER Cardiac pacemaker in situ Asystole (HCC) Syncope and collapse Symptomatic bradycardia POCT GLUCOSE DEVICE Routine 10/25/2024 1 2:56 PM VARNISH BLENDER POCT GLUCOSE DEVICE Routine 10/25/2024 8 :10 AM VARNISH BLENDER POCT GLUCOSE DEVICE Routine 10/25/2024 7 :43 AM VARNISH BLENDER EGFR Routine 10/25/2024 5:48 AM VARNISH BLENDER BASIC METABOLIC PANEL Routine 10/25/2024 5:48 AM VARNISH BLENDER CBC WITHOUT DIFFERENTIAL Routine 10/25/2024 5:48 AM VARNISH BLENDER POCT GLUCOSE DEVICE Routine 10/25/2024 2 :25 AM VARNISH BLENDER POCT GLUCOSE DEVICE Routine 10/24/2024 8 :31 PM VARNISH BLENDER POCT GLUCOSE DEVICE Routine 10/24/2024 4 :33 PM VARNISH BLENDER POCT GLUCOSE DEVICE Routine 10/24/2024 2 :03 PM VARNISH BLENDER LEADLESS, SINGLE CHAMBER PACEMAKER (PPM) INSERTION Routine 10/24/2024 1:36 PM VARNISH BLENDER Syncope and collapse POCT GLUCOSE DEVICE Routine 10/24/2024 1 1:26 AM VARNISH BLENDER POCT GLUCOSE DEVICE Routine 10/24/2024 7 :30 AM VARNISH BLENDER TSH Routine 10/24/2024 5:12 AM VARNISH BLENDER EGFR Routine 10/24/2024 4:59 AM VARNISH BLENDER BASIC METABOLIC PANEL Routine 10/24/2024 4:59 AM VARNISH BLENDER CBC WITHOUT DIFFERENTIAL Routine 10/24/2024 4:59 AM VARNISH BLENDER POCT GLUCOSE DEVICE Routine 10/24/2024 2 :39 AM VARNISH BLENDER POCT GLUCOSE DEVICE Routine 10/23/2024 1 0:25 PM VARNISH BLENDER POCT GLUCOSE DEVICE Routine 10/23/2024 8 :04 PM VARNISH BLENDER POCT GLUCOSE DEVICE Routine 10/23/2024 5 :42 PM VARNISH BLENDER HEPATITIS B SURFACE ANTIBODY (IMMUNE STATUS) Routine 10/23/2024 2:45 PM VARNISH BLENDER HEPATITIS PANEL, ACUTE Routine 10/23/2024 2:45 PM VARNISH BLENDER POCT GLUCOSE DEVICE Routine 10/23/2024 1 2:57 PM VARNISH BLENDER HEMODIALYSIS Routine 10/23/2024 9:13 AM VARNISH BLENDER POCT GLUCOSE DEVICE Routine 10/23/2024 7 :47 AM VARNISH BLENDER EGFR Routine 10/23/2024 5:27 AM VARNISH BLENDER DIFFERENTIAL AUTO Routine 10/23/2024 5:2 7 AM VARNISH BLENDER MAGNESIUM Routine 10/23/2024 5:27 AM VARNISH BLENDER PHOSPHORUS Routine 10/23/2024 5:27 AM VARNISH BLENDER COMPREHENSIVE METABOLIC PANEL Routine 10/23/2024 5:27 AM VARNISH BLENDER CBC WITH AUTO DIFFERENTIAL Routine 10/23/2024 5:27 AM VARNISH BLENDER POCT GLUCOSE DEVICE Routine 10/23/2024 3 :04 AM VARNISH BLENDER POCT GLUCOSE DEVICE Routine 10/22/2024 1 0:42 PM VARNISH BLENDER POCT GLUCOSE DEVICE Routine 10/22/2024 8 :42 PM VARNISH BLENDER HM DIABETES EYE EXAM Routine 08/13/2024 9:40 AM CDT ALBUMIN CREATININE RATIO, URINE Routine 03/10/2024 8:46 AM CDT Type 2 diabetes mellitus with hyperglycemia, with long-term current use of insulin ([facility]/HCC) LIPID PANEL Routine 03/03/2024 9:29 AM CDT Type 2 diabetes mellitus with hyperglycemia, with long-term current use of insulin ([facility]) Hyperlipidemia associated with type 2 diabetes mellitus (HCC) CT ABDOMEN PELVIS WO CONTRAST Schedule Routine, Read Routine (OP Routine) 12/05/2021 11:53 AM VARNISH BLENDER End stage renal disease (HCC) from Last 3 Months or Most Recently Relevant to Health Maintenance Results * Cardiology Document Scan (12/10/2024 10:59 AM VARNISH BLENDER) Anatomical Region Laterality Modality Other Curt Grady MD CV CARDIAC SERVICES PRO CEDURES Final Result * POCT hemoglobin A1c (11/24/2024 10:01 AM VARNISH BLENDER) Hemoglobin A1C, POC 4.9 4.0 - 5.6 % Blood 11/24/2024 10:0 1 AM VARNISH BLENDER us Bertha Pinto NP POINT OF CARE TEST ORDERA BLES Final Result * (ABNORMAL) POCT glucose (11/24/2024 10:01 AM VARNISH BLENDER) Glucose Blood, POC 131 mg/dL Blood 11/24/2024 10:0 1 AM VARNISH BLENDER us Bertha Pinto NP POINT OF CARE TEST ORDERA BLES Final Result * DEVICE CHECK - IN OFFICE (11/05/2024 1:22 PM VARNISH BLENDER) Anatomical Region Laterality Modality Other Narrative 11/13/2024 2:43 PM VARNISH BLENDER Medtronic Micra AV2 Pacemaker. Dx; Symptomatic Bradycardia, [...] Result * POCT glucose (10/25/2024 12:56 PM VARNISH BLENDER) Glucose, POC 74 70 - 199 mg/dL Blood 10/25/2024 12:5 6 PM VARNISH BLENDER 10/25/2024 12:56 PM VARNISH BLENDER Nabeel Stantonnte LAB POCT ORDERABLES - DEVICE Final Result Performing Organization Address [facility] Co de Phone Number NIDIA [address] [address] Department [place] [address] * POCT glucose (10/25/2024 8:10 AM VARNISH BLENDER) [facility] Glucose, POC 100 70 - 199 mg/dL Blood 10/25/2024 8:10 AM VARNISH BLENDER 10/25/2024 8:[address] [facility] POCT ORDERABLES - DEVICE Final Result Performing Organization Address [facility] de Phone Number NIDIA [address] [address] Department [place] [address] * POCT glucose (10/25/2024 7:43 AM VARNISH BLENDER) [facility] Glucose, POC 78 70 - 199 mg/dL Blood 10/25/2024 7:43 AM VARNISH BLENDER 10/25/2024 7:[address] [facility] POCT ORDERABLES - DEVICE Final Result Performing Organization Address [facility] de Phone Number ALYSSAALANNAH [address] [address] [facility] [place] [address] * (ABNORMAL) eGFR (10/25/2024 5:48 AM VARNISH BLENDER) [facility] eGFR 9(L) >=60 mL/min/1. 73 m2 [...] last reviewed 2021. Blood 10/25/2024 5:48 AM VARNISH BLENDER 10/25/2024 6:03 AM VARNISH BLENDER us Raisa Scherer NP LAB BLOOD ORDERABLES Jeaneth mari Result [facility] [address] [address] Department [place] [address] * (ABNORMAL) CBC without differential (10/25/2024 5:48 AM VARNISH BLENDER) WBC 4.6 3.8 - 9.9 K/cumm Hgb 8.3(L) 13.0 - 17.5 g/dL [facility] Hct 28.1(L) 38.9 - 50.3 % [facility] Plt 187 150 - 400 K/cumm [facility] MPV 10.6 9.1 - 12.3 fL [facility] RBC 2.82(L) 4.30 - 5.80 M/cumm [facility] MCV 99.6(H) 81.3 - 96.4 fL [facility] MCH 29.4 27.1 - 33.3 pg [facility] MCHC 29.5(L) 32.3 - 35.7 g/dL [facility] RDW CV 16.3(H) 11.1 - 14.9 % [facility] RDW SD 60.4(H) 35.7 - 48.1 fL [facility] NRBC abs 0.00 0.00 - 0.01 K/cumm [facility] Blood 10/25/2024 5:48 AM VARNISH BLENDER 10/25/2024 6:03 AM VARNISH BLENDER Raisa Scherer NP LAB BLOOD ORDERABLES Jeaneth l Result NIDIA [address] [address] Department [place] [address] * (ABNORMAL) Basic metabolic panel (10/25/2024 5:48 AM VARNISH BLENDER) Pathologist [facility] Sodium 135 135 - 145 mmol/L Potassium, pl 4.3 3.3 - 4.9 mmol/L [facility] Chloride 93(L) 97 - 110 mmol/L [facility] CO2 27 22 - 32 mmol/L [facility] Anion gap 15 2 - 15 mmol/L [facility] BUN 30(H) 6 - 25 mg/dL [facility] Creatinine 5.94(H) 0.80 - 1.30 mg/dL [facility] Glucose 76 70 - 199 mg/dL [facility] Comment: Interpretive Data Fasting glucose >/= [...] 2022. Calcium 8.8 8.5 - 10.3 mg/dL [facility] Blood 10/25/2024 5:48 AM VARNISH BLENDER 10/25/2024 6:03 AM VARNISH BLENDER Raisa Scherer NP LAB BLOOD ORDERABLES Jeaneth l Result Performing Organization Address City/[facility]/ZIP Co de Phone Number [facility] [address] [address] Department [place] [address] * POCT glucose (10/25/2024 2:25 AM VARNISH BLENDER) Glucose, POC 81 70 - 199 mg/dL Blood 10/25/2024 2:25 AM VARNISH BLENDER 10/25/2024 2:25 AM VARNISH BLENDER Result [facility] POCT ORDERABLES - DEVICE Final Result Performing Organization Address [facility] de Phone Number NIDIA [address] [address] [facility] [place] [address] * POCT glucose (10/24/2024 8:31 PM VARNISH BLENDER) Glucose, POC 120 70 - 199 mg/dL Blood 10/24/2024 8:31 PM VARNISH BLENDER 10/24/2024 8:[address] [facility] POCT ORDERABLES - DEVICE Final Result Performing Organization Address [facility] de Phone Number NIDIA [address] [address] [facility] [place] [address] * POCT glucose (10/24/2024 4:33 PM VARNISH BLENDER) Glucose, POC 85 70 - 199 mg/dL Blood 10/24/2024 4:33 PM VARNISH BLENDER 10/24/2024 4:33 PM VARNISH BLENDER [facility] POCT ORDERABLES - DEVICE Final Result Performing Organization Address [facility] de [place] [address] [address] [facility] [place] [address] * POCT glucose (10/24/2024 2:03 PM VARNISH BLENDER) Glucose, POC 83 70 - 199 mg/dL Blood 10/24/2024 2:03 PM VARNISH BLENDER 10/24/2024 2:03 PM VARNISH BLENDER us Nabeel Richard Philippe DO LAB POCT ORDERABLES - DEVICE Final Result Performing Organization Address [facility] Co de Phone Number NIDIA COTE [address] [address] [facility] [place] [address] * POCT glucose (10/24/2024 11:26 AM VARNISH BLENDER) Glucose, POC 85 70 - 199 mg/dL Blood 10/24/2024 11:2 6 AM VARNISH BLENDER 10/24/2024 11:26 AM VARNISH BLENDER Nabeel Paez LAB POCT ORDERABLES - DEVICE Final Result Performing Organization Address [facility] de Phone Number NIDIA COTE [address] [address] [facility] [place] [address] * POCT glucose (10/24/2024 7:30 AM VARNISH BLENDER) Glucose, POC 94 70 - 199 mg/dL Blood 10/24/2024 7:30 AM VARNISH BLENDER 10/24/2024 7:30 AM VARNISH BLENDER Nabeel Ramos Philippe [facility] POCT ORDERABLES - DEVICE Final Result Performing Organization Address [facility] [place] [address] [address] Department [place] [address] * TSH (10/24/2024 5:12 AM VARNISH BLENDER) Thyroid Stimulating Hormone 0.48 0.30 - 4.20 mcIUnit/mL Blood 10/24/2024 5:12 AM VARNISH BLENDER 10/24/2024 5:23 AM VARNISH BLENDER Sherrill Christianson MD LAB BLOOD ORDERABLES Final Result Performing Organization Address [facility] [place] [address] [address] [facility] [place] [address] * (ABNORMAL) eGFR (10/24/2024 4:59 AM VARNISH BLENDER) eGFR 13(L) >=60 mL/min/1. 73 m2 Comment: [...] last reviewed 2021. Blood 10/24/2024 4:59 AM VARNISH BLENDER 10/24/2024 5:23 AM VARNISH BLENDER us Raisa Scherer NP LAB BLOOD ORDERABLES Jeaneth mari Result [facility] [address] [address] Department [place] [address] * (ABNORMAL) CBC without differential (10/24/2024 4:59 AM VARNISH BLENDER) Pathologist [facility] WBC 5.1 3.8 - 9.9 K/cumm Hgb 8.9(L) 13.0 - 17.5 g/dL [facility] Hct 29.9(L) 38.9 - 50.3 % [facility] Plt 188 150 - 400 K/cumm [facility] MPV 10.2 9.1 - 12.3 fL [facility] RBC 2.93(L) 4.30 - 5.80 M/cumm [facility] MCV 102.0(H) 81.3 - 96.4 fL [facility] MCH 30.4 27.1 - 33.3 pg [facility] MCHC 29.8(L) 32.3 - 35.7 g/dL [facility] RDW CV 16.8(H) 11.1 - 14.9 % [facility] RDW SD 62.6(H) 35.7 - 48.1 fL [facility] NRBC abs 0.00 0.00 - 0.01 K/cumm [facility] Blood 10/24/2024 4:59 AM VARNISH BLENDER 10/24/2024 5:20 AM VARNISH BLENDER Raisa Scherer NP LAB BLOOD ORDERAB[place] [address] Department [place] [address] * (ABNORMAL) Basic metabolic panel (10/24/2024 4:59 AM VARNISH BLENDER) Sodium 136 135 - 145 mmol/L Potassium, [...] mg/dL [facility] Blood 10/24/2024 4:59 AM VARNISH BLENDER 10/24/2024 5:20 AM VARNISH BLENDER Raisa Scherer NP LAB BLOOD ORDERABLES Jeaneth l Result NIDIA COTE [address] [address] [facility] [place] [address] * POCT glucose (10/24/2024 2:39 AM VARNISH BLENDER) Glucose, POC 123 70 - 199 mg/dL Blood 10/24/2024 2:39 AM VARNISH BLENDER 10/24/2024 2:39 AM VARNISH BLENDER Nabeel Paez LAB POCT ORDERABLES - DEVICE Final Result Performing Organization Address [facility] Co de Phone Number NIDIA COTE [address] [address] [facility] [place] [address] * POCT glucose (10/23/2024 10:25 PM VARNISH BLENDER) Glucose, POC 173 70 - 199 mg/dL Blood 10/23/2024 10:2 5 PM VARNISH BLENDER 10/23/2024 10:25 PM VARNISH BLENDER Nabeel HERRING POCT ORDERABLES - DEVICE Final Result Performing Organization Address [facility] Co de Phone Number NIDIA COTE [address] [address] [facility] [place] [address] * POCT glucose (10/23/2024 8:04 PM VARNISH BLENDER) Glucose, POC 70 70 - 199 mg/dL Blood 10/23/2024 8:04 PM VARNISH BLENDER 10/23/2024 8:04 PM VARNISH BLENDER Nabeel Paez LAB POCT ORDERABLES - DEVICE Final Result Performing Organization Address [facility] Co de Phone Number NIDIA COTE [address] [address] [facility] [place] [address] * POCT glucose (10/23/2024 5:42 PM VARNISH BLENDER) Glucose, POC 90 70 - 199 mg/dL Blood 10/23/2024 5:42 PM VARNISH BLENDER 10/23/2024 5:42 PM VARNISH BLENDER Nabeel Paez DO LAB POCT ORDERABLES - DEVICE Final Result Performing Organization Address [facility] Co de Phone Number NIDIA COTE [address] [address] Department [place] [address] * Hepatitis panel, acute Blood (10/23/2024 2:45 PM VARNISH BLENDER) Pathologist [facility] Hep A IgM Nonreactive Nonreactive Comment: Interpretive Data: If Hep A IgM Ab is reported as Equivocal, a new sample should be drawn in two weeks for testing. Current interpretive data was last revised on 20. Hep B core IgM Nonreactive Nonreactive [facility] Comment: Interpretive Data If HepB Core IgM Ab is reported as Equivocal, a new sample should be drawn in two weeks for testing. Current interpretive data was last revised on 20. Hep C Ab Nonreactive Nonreactive [facility] Comment: Interpretive Data Nonreactive: Antibodies to [...] last revised on 2020. HepBsAg Nonreactive Nonreactive [facility] Blood 10/23/2024 2:45 PM VARNISH BLENDER 10/23/2024 2:46 PM VARNISH BLENDER Sherrill Christianson MD LAB MICROBIOLOGY - GENERAL ORDERABLES Final Result Performing Organization Address [facility] Co de Phone Number NIDIA COTE [address] [address] Department [place] [address] * Hepatitis B surface antibody (immune status) Blood (10/23/2024 2:45 PM VARNISH BLENDER) Pathologist [facility] HBsAb (immune status) Nonreactive Comment: Interpretive Data [...] revised on 20. Blood 10/23/2024 2:45 PM VARNISH BLENDER 10/23/2024 2:46 PM VARNISH BLENDER us Sherrill Christianson MD LAB MICROBIOLOGY - GENERAL ORDERABLES Final Result Performing Organization Address City/[facility]/ZIP Co de Phone Number NIDIA COTE [address] Department [place] [address] * (ABNORMAL) POCT glucose (10/23/2024 12:57 PM VARNISH BLENDER) Glucose, POC 69(L) 70 - 199 mg/dL Blood 10/23/2024 12:5 7 PM VARNISH BLENDER 10/23/2024 12:57 PM VARNISH BLENDER us Nabeel Paez DO LAB POCT ORDERABLES - DEVICE Final Result Performing Organization Address [facility] Co de Phone Number NIDIA COTE [address] Department [place] [address] * POCT glucose (10/23/2024 7:47 AM VARNISH BLENDER) Glucose, POC 81 70 - 199 mg/dL Blood 10/23/2024 7:47 AM VARNISH BLENDER 10/23/2024 7:47 AM VARNISH BLENDER Sylvester Engel MD LAB POCT ORDERABLES - DEVICE Final Result Performing Organization Address City/[facility] Co de Phone Number NIDIA COTE [address] Department [place] [address] * (ABNORMAL) eGFR (10/23/2024 5:27 AM VARNISH BLENDER) eGFR 11(L) >=60 mL/min/1. 73 m2 Comment: [...] last reviewed 2021. Blood 10/23/2024 5:27 AM VARNISH BLENDER 10/23/2024 5:32 AM VARNISH BLENDER us Raisa Scherer NP LAB BLOOD ORDERABLES Jeaneth l Result [facility] [address] Department [place] [address] * (ABNORMAL) Differential, auto (10/23/2024 5:27 AM VARNISH BLENDER) Pathologist [facility] Neutrophil abs 4.1 1.5 - 6.5 K/cumm Imm gran abs 0.1 0.0 - 0.1 K/cumm [facility] Lymphocyte abs 0.4(L) 0.8 - 3.3 K/cumm [facility] Monocyte abs 0.7 0.2 - 0.8 K/cumm [facility] Eosinophil abs 0.1 0.0 - 0.5 K/cumm [facility] Basophil abs 0.0 0.0 - 0.1 K/cumm [facility] Neutrophil pct 76.5 % [facility] Comment: Interpretive Data Percent cell count reference ranges are not reported, since discordance with absolute values may lead to misinterpretation of CBC data. Current Interpretive Data was last revised on 2018. Imm gran pct 1.1 % [facility] Comment: Interpretive Data Percent cell count reference ranges are not reported, since discordance with absolute values may lead to misinterpretation of CBC data. Current Interpretive Data was last revised on 2018. Lymphocyte pct 7.9 % [facility] Comment: Interpretive Data Percent cell count reference ranges are not reported, since discordance with absolute values may lead to misinterpretation of CBC data. Current Interpretive Data was last revised on 2018. Monocyte pct 12.7 % [facility] Comment: Interpretive Data Percent cell count reference ranges are not reported, since discordance with absolute values may lead to misinterpretation of CBC data. Current Interpretive Data was last revised on 2018. Eosinophil pct 1.1 % [facility] Comment: Interpretive Data Percent cell count reference ranges are not reported, since discordance with absolute values may lead to misinterpretation of CBC data. Current Interpretive Data was last revised on 2018. Basophil pct 0.7 % [facility] Comment: Interpretive Data Percent cell count reference ranges are not reported, since discordance with absolute values may lead to misinterpretation of CBC data. Current Interpretive Data was last revised on 2018. Blood 10/23/2024 5:27 AM VARNISH BLENDER 10/23/2024 5:30 AM VARNISH BLENDER us Raisa Scherer RETENTION SPECIALIST LAB BLOOD ORDERABLES Jeaneth mari Result [facility] [address] [address] Department [place] [address] * (ABNORMAL) CBC with auto differential (10/23/2024 5:27 AM VARNISH BLENDER) WBC 5.3 3.8 - 9.9 K/cumm Hgb 8.8(L) 13.0 - 17.5 g/dL [facility] Hct 28.9(L) 38.9 - 50.3 % [facility] Plt 179 150 - 400 K/cumm [facility] MPV 10.4 9.1 - 12.3 fL [facility] RBC 2.86(L) 4.30 - 5.80 M/cumm [facility] MCV 101.0(H) 81.3 - 96.4 fL [facility] MCH 30.8 27.1 - 33.3 pg [facility] MCHC 30.4(L) 32.3 - 35.7 g/dL [facility] RDW CV 17.2(H) 11.1 - 14.9 % [facility] RDW SD 63.7(H) 35.7 - 48.1 fL [facility] NRBC abs 0.00 0.00 - 0.01 K/cumm [facility] Blood 10/23/2024 5:27 AM VARNISH BLENDER 10/23/2024 5:30 AM VARNISH BLENDER Raisa Scherer RETENTION SPECIALIST LAB BLOOD ORDERABLES Jeaneth l Result Performing Organization Address City/[facility] Co de Phone Number [facility] [address] [address] [facility] [employer] [place], [place] [id number] * Phosphorus (10/23/2024 5:27 AM VARNISH BLENDER) Phosphorus, pl 4.5 2.3 - 4.5 mg/dL Blood 10/23/2024 5:27 AM VARNISH BLENDER 10/23/2024 5:30 AM VARNISH BLENDER Raisa Scherer RETENTION SPECIALIST LAB BLOOD ORDERABLES Jeaneth l Result Performing Organization Address City/[facility] Co de Phone Number [facility] [address] [address] [facility] [place] [address] * Magnesium (10/23/2024 5:27 AM VARNISH BLENDER) Magnesium 2.1 1.4 - 2.5 mg/dL Blood 10/23/2024 5:27 AM VARNISH BLENDER 10/23/2024 5:30 AM VARNISH BLENDER Raisa Scherer RETENTION SPECIALIST LAB BLOOD ORDERABLES Jeaneth l Result Performing Organization Address City/[facility]/ZIP Co de Phone Number [facility] [address] [address] [facility] [place] [address] * (ABNORMAL) Comprehensive metabolic panel (10/23/2024 5:27 AM VARNISH BLENDER) Sodium 137 135 - 145 mmol/L Potassium, [...] Units/L [facility] Blood 10/23/2024 5:27 AM VARNISH BLENDER 10/23/2024 5:30 AM VARNISH BLENDER us Raisa Scherer RETENTION SPECIALIST LAB BLOOD ORDERABLES Jeaneth mari Result [facility] [address] [address] Department [place] [address] * POCT glucose (10/23/2024 3:04 AM VARNISH BLENDER) Glucose, POC 84 70 - 199 mg/dL Blood 10/23/2024 3:04 AM VARNISH BLENDER 10/23/2024 3:04 AM VARNISH BLENDER Result [facility] Sylvester Engel MD LAB POCT ORDERABLES - DEVICE Final Result Performing Organization Address [facility] de Phone Number NIDIA [address] [address] [facility] [place] [address] * POCT glucose (10/22/2024 10:42 PM VARNISH BLENDER) Glucose, POC 101 70 - 199 mg/dL Blood 10/22/2024 10:4 2 PM VARNISH BLENDER 10/22/2024 10:42 PM VARNISH BLENDER Result [facility] Sylvester Engel MD LAB POCT ORDERABLES - DEVICE Final Result Performing Organization Address [facility] [place] [address] [address] Department [place] [address] * POCT glucose (10/22/2024 8:42 PM VARNISH BLENDER) Glucose, POC 114 70 - 199 mg/dL Blood 10/22/2024 8:42 PM VARNISH BLENDER 10/22/2024 8:42 PM VARNISH BLENDER Result [facility] Guru Miller MD LAB POCT ORDERABLES - DEVICE Final Result Performing Organization Address [facility] [place] [address] [address] [facility] [place] [address] * (ABNORMAL) DIABETES EYE EXAM (08/13/2024 9:40 AM CDT) Result [facility] Karin Dc MD HEALTH MAINTENANCE Edited Result [...] LAB URINE ORDERABLES Jeaneth l Result NIDIA [address] [address] Department [place] [address] * (ABNORMAL) Lipid panel (03/03/2024 9:29 AM [...] 03/03/2024 4:40 PM CDT us Bertha Pinto RETENTION SPECIALIST LAB BLOOD ORDERABLES Jeaneth l Result NIDIA COTE [address] [address] Department [place] [address] * CT Abdomen Pelvis WO Contrast (12/05/2021 11:53 AM VARNISH BLENDER) Anatomical Region Laterality Modality Body N/A Computed Tomogra phy 12/05/2021 12:0 4 PM VARNISH BLENDER Impressions 12/05/2021 12:04 PM VARNISH BLENDER Bone windows show no suspicious lytic or blastic lesions. IMPRESSION: 1. 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 2. 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 Electronically signed by: Ryan Cameron M.D. Narrative 12/05/2021 12:04 PM VARNISH BLENDER EXAMINATION: Computed tomography of the abdomen/pelvis without [...] adeniform shape. There is atrophy of both [place] kidneys. Adjacent fat stranding is likely related [...] adeniform shape. There is atrophy of both [place] kidneys. Adjacent fat stranding is likely related [...] Recently Relevant to Health Maintenance Insurance MEDICARE [employer] Member Subscriber Plan / Payer ( fective 2021-Present) Name:Brandie Morrissey Jr. Relation to Subscriber:Self Name:Brandie Morrissey Jr. Payer ID:[id number] (NAIC) Group ID:[id number] Type: Address: [place] [phone] MEDICARE MEDICARE FOR LIFE Care Teams Panel Beater Relationship Specialty Start Date End Date Mariza Carrion MD [address] [facility] [address] [place] [address] PCP - General Family Practice 03/05/23 Efren Hoyos MD Referring Physician Ophthalmology 06/16/19 Dank Hicks MD [address] [place], [place] [id number] Consulting Physician Cardiology 10/11/21
--- OUTSIDE RECORDS SUMMARY | 2024-12-30 20:00 | XMS_ITS | Clinical Summary ---
Author Organization [facility] Facility Address [address] [place] [id number] Care Team Providers Care Watch Case Polisher Name Role Phone Murali Dawkins MD Primary Care Provider Encounters Date Type Department Care Team Description 10/28/2024 Documentation Only [facility], [address] [id number] Jeanie Graff from Last 3 Months Social [...] complete this topic Insurance MEDICARE Care Teams Watch Case Polisher Relationship Specialty Start Date End Date Murali Dawkins MD [address] [place] [address] PCP - General Family Medicine 10/28/24
--- OUTSIDE RECORDS SUMMARY | 2024-12-30 20:00 | XMS_ITS | Patient Health Summary ---
Author Organization [facility] Address [address] [place] [address] Care Team Providers Care Hat Forming Machine Feeder Name Role Phone Mariza Carrion MD Primary Care Provider Note from [facility],non-owned Affiliates and Associated Physician Practices is amultiple site organization consisting of ambulatory clinics and hospital sitesin [place], [place], [place] and [place]. This disclosure is being madepursuant to the Care Everywhere program and may not contain all information available regarding this patient. Last updated 18.[facility] Allergies No known active allergies Medications * [...] 09/19/2018) Use pads 5 times daily * ktklx-3-cpqu ethyl esters (LOVAZA) 1 g capsule(Started 02/23/2020) [...] as needed FOR MUSCLE SPASM * HYDROcodone-acetaminophen (Harvey) 5-325 MG tablet(Started 12/15/2023) * Lokelma 10 [...] and heating? Not hard at all 04/06/2023 [facility] [place] [facility] Occupat ional Health - Occupational Stress [...] Comments Blood Pressure 147/70 09/22/2024 8:55 AM [facility] Pulse 68 09/22/2024 8:55 AM [facility] Temperature 36.2 C (97.2 F) 09/22/2024 7:24 AM [facility] Respiratory Rate 15 09/22/2024 8:55 AM [facility] Oxygen Saturation 92% 09/22/2024 8:55 AM [facility] Inhaled Oxygen Concentration 25% 04/11/2023 7 :26 PM CDT Weight 87.9 kg (193 lb 12.6 oz) 09/22/2024 7:24 AM [facility] Height 170.2 cm (5' 7 ) 09/22/2024 7:24 AM [facility] Body Mass Index 30.35 09/22/2024 7:24 AM [facility] Medical Devices Implanted Type Area Automotive Electrician Helper Device Identifier Shelf Expiration Date Model / Serial / Lot Mynxgrip Vascular Closure Device Implanted:Qty: 1 on 04/11/2023 by Matt Beyer DO at [facility] Right: Groin 01/19/2025 [id number] / [id number] / [id number] 5tch Cv 6x1cm Photofix Decellularized Implanted:Qty: 1 on 04/20/2023 by Matt Beyer DO at [facility] N/A: Other (See Descriptio n) [employer] 01/28/2024 [id number] / / [id number] Description:LEFT FEMORAL ART BARI Procedures * CARDIAC RHYTHM STRIP ORDER(Performed 09/23/2024) * IR ANGIO AV SHUNT IMAGING(Performed 09/22/2024) Performed for ESRD (end stage renal disease) ([facility]) * CARDIAC RHYTHM STRIP ORDER(Performed 06/10/2024) * IR ANGIO AV SHUNT IMAGING(Performed 06/09/2024) Performed for ESRD (end stage renal disease) ([facility]) * CARDIAC RHYTHM STRIP ORDER(Performed 01/29/2024) * CARDIAC RHYTHM STRIP ORDER(Performed 09/25/2023) * IR ANGIO AV SHUNT IMAGING(Performed 09/24/2023) Performed for Encounter regarding vascular access for dialysis for end-stage renal disease ([facility]) * CARDIAC RHYTHM STRIP ORDER(Performed 06/01/2023) * IR ANGIO AV SHUNT IMAGING(Performed 05/30/2023) Performed for Encounter regarding vascular access for dialysis for end-stage renal disease ([facility]) * VAS LEFT ARTERIAL DUPLEX LE(Performed 05/17/2023) [...] 04/20/2023) * ENDOTRACHEAL TUBE NOTE(Performed 04/20/2023) * WA TEAEC W/GRAFT SUPERFICIAL FEMORAL ART(Performed 04/20/2023) * PTT(Performed 04/20/2023) * PT-INR(Performed 04/20/2023) * TYPE + SCREEN PANEL(Performed 04/20/2023) * CBC W AUTO DIFFERENTIAL(Performed 04/20/2023) * RENAL FUNCTION PANEL(Performed 04/20/2023) * GLUCOSE - POINT OF CARE(Performed 04/19/2023) * GLUCOSE - POINT OF CARE(Performed 04/19/2023) * HYBRID IMAGING(Performed 04/19/2023) Performed for PVD (peripheral vascular disease) ([facility]) * ENDOTRACHEAL TUBE NOTE(Performed 04/19/2023) * HEMODIALYSIS [...] 04/13/2023) Performed for PVD (peripheral vascular disease) ([facility]) * STRESS TEST(Performed 04/13/2023) Performed for PVD (peripheral vascular disease) ([facility]) * GLUCOSE - POINT OF CARE(Performed 04/13/2023) [...] EKG 12-LEAD(Performed 04/11/2023) Performed for Cardiac arrest ([facility]) * GLUCOSE - POINT OF CARE(Performed 04/11/2023) * LACTIC ACID BLOOD(Performed 04/11/2023) * TROPONIN I(Performed 04/11/2023) * EKG 12-LEAD(Performed 04/11/2023) Performed for Cardiac arrest ([facility]) * TROPONIN I(Performed 04/11/2023) * COAGULATION PANEL [...] Performed for ESRD (end stage renal disease) ([facility]) * CARDIAC RHYTHM STRIP ORDER(Performed 06/12/2022) * IR ANGIO AV SHUNT IMAGING(Performed 05/31/2022) Performed for Complication of arteriovenous dialysis fistula, initial encounter * CARDIAC RHYTHM STRIP ORDER(Performed 02/02/2022) * IR ANGIO AV SHUNT IMAGING(Performed 01/25/2022) Performed for ESRD (end stage renal disease) ([facility]) * CARDIAC RHYTHM STRIP ORDER(Performed 10/03/2021) * IR ANGIO AV SHUNT IMAGING(Performed 09/28/2021) Performed for ESRD (end stage renal disease) ([facility]) * CARDIAC RHYTHM STRIP ORDER(Performed 06/07/2021) * [...] Performed for ESRD (end stage renal disease) ([facility]), Complication of arteriovenous dialysis fistula,initial encounter * CARDIAC RHYTHM STRIP ORDER(Performed 06/17/2019) * IR ANGIO AV SHUNT IMAGING(Performed 06/04/2019) Performed for Complication of arteriovenous dialysis fistula, initial encounter, ESRD (end stage renal disease) ([facility]) * VAS DIALYSIS EXIST ACCESS SCAN(Performed 01/27/2019) Performed for ESRD (end stage renal disease) ([facility]) * GLUCOSE - POINT OF CARE(Performed 09/17/2018) * ARTERIOVENOUS FISTULA TRANSPOSITION / SUPERFICIALIZATION(Performed 09/17/2018) * GLUCOSE - POINT OF CARE(Performed 09/17/2018) * BASIC METABOLIC PANEL (CALCIUM TOTAL)(Performed 09/17/2018) Performed for Preoperative examination * VAS DIALYSIS EXIST ACCESS SCAN(Performed 08/26/2018) Performed for ESRD (end stage renal disease) ([facility]) * VAS DIALYSIS EXIST ACCESS SCAN(Performed 07/22/2018) Performed for ESRD (end stage renal disease) ([facility]) * CREATE FISTULA A-V(Performed 07/09/2018) * GLUCOSE - POINT OF CARE(Performed 07/09/2018) * BASIC METABOLIC PANEL (CALCIUM TOTAL)(Performed 07/09/2018) Performed for Preoperative examination * VAS BILAT MAPPING FOR HEMODIALYSIS(Performed 06/03/2018) Performed for ESRD (end stage renal disease) ([facility]) * ANGIOGRAM/ARTERIOGRAM Results * CARDIAC RHYTHM STRIP ORDER (09/23/2024 9:57 PM [facility]) Only the most recent of19 resultswithin the time period is included. Narrative 09/23/2024 9:57 PM [facility] Ordered by an unspecified provider. Scanned Document CARDIAC SERVICES ORD ERABLES * IR Angio Av Shunt Imaging (09/22/2024 8:41 AM [facility]) Only the most recent of16 resultswithin the time period is included. Anatomical Region Laterality Modality Lower Extremity, Upper Extremity, Chest X-Ray Angiography Narrative 09/22/2024 8:43 AM [facility] Dank George MD 09/22/2024 8:46 AM [facility] [place] Brandie Morrissey 1945 DATE OF PROCEDURE: 09/22/2024 [...] stent. Tract was dilated and a 6 Danish sheath was inserted. Patient was given IV [...] Note Juan A Bassett MD - 05/17/2023 [facility] [place] [address], [address] [place] [address] Lower Extremity Arterial Ultrasound Report Pat.Name: BRANDIE MORRISSEY JR Pat.ID: [id number] .Date: 05/17/2023 Refer.MD: KENN LACY Exam Time: 12:58:00 PM Study Type:LE Arterial Age: 7 1945,77Y Sex: MALE Sonogrphr: Liz Diana RVT Pat. Stat.:Outpatient CPT - 4: 04068 Reason for Study: Follow up surgery History / Clinical: Hypertension, Diabetes, Coronary artery disease, Hyperlipidemia Procedures: Lower Extremity Arterial Duplex - Left Race: [facility] Visit ID: [id number] ++++++++++++++++++++++++++++++++++++ SUMMARY: ++++++++++++++++++++++++++++++++++++ Severe left lower extremity peripheral vascular disease ++++++++++++++++++++++++++++++++++++ FINDINGS: ++++++++++++++++++++++++++++++++++++ Procedure: B-mode imaging, color flow Doppler and spectral analysis were used to examine the arteries of the left lower extremity. Study Quality: This study is of adequate technical quality. Lt Leg: Arterial doppler waveforms of the left LINING INSERTER are biphasic. Arterial doppler waveforms of the left SFA are monophasic and appears to be near occlusion. Arterial doppler waveforms of the left lower calf arteries are monophasic. Calcified plaque visualized in the most of Arteries in Left Leg. ++++++++++++++++++++++++++++++++++++ MEASUREMENTS: ++++++++++++++++++++++++++++++++++++ DOPPLER Left LINING INSERTER Prox LINING INSERTER Prox PSV 119 cm/s Left ISELA Dist [...] Left Profunda Profunda PSV 55 cm/s Left ELECTRIC MOTOR REPAIRMAN Distal ELECTRIC MOTOR REPAIRMAN Distal PSV 26 cm/s ELECTRIC MOTOR REPAIRMAN Distal EDV 16 cm/s Left ELECTRIC MOTOR REPAIRMAN Mid ELECTRIC MOTOR REPAIRMAN Mid PSV 22 cm/s Left ELECTRIC MOTOR REPAIRMAN Prox ELECTRIC MOTOR REPAIRMAN Prox PSV 20 cm/s Left SFA Dist [...] Juan A Bassett MD [facility] LPN-PAINTER [facility] VASCULAR LAB O RDERABLES * APHERESIS/TRANSFUSION ORDER (05/02/2023 3:59 PM CDT) Narrative 05/02/2023 3:59 PM CDT Ordered by an unspecified provider. Scanned Document NURSING - VITAL SIGN S AND ASSESSMENT * (ABNORMAL) GLUCOSE - POINT OF CARE (05/01/2023 1:21 PM CDT) Only the most recent of97 resultswithin the time period is included. [facility] Glucose WB/POC 121(H) 70 - 106 mg/dL 05/01/2023 3:14 PM CDT [facility] Specimen Type Cap Fingerstick 2022 3:14 PM CDT [facility] Blood BLOOD SPECIMEN / Unknown 05/01/2023 1:21 PM CDT 05/01/2023 3:14 PM CDT Jm Waters MD LAB - POINT OF CARE ORDERABLES [facility] [address] [place] [address] * (ABNORMAL) CBC W/O DIFFERENTIAL (05/01/2023 8:34 AM CDT) Only the most recent of9 resultswithin the time period is included. [facility] WBC 8.8 4.4 - 10.7 x10E9/L 05/01/2023 8:40 AM CDT [facility] RBC 2.67(L) 3.80 - 5.40 x10E12/L 05/01/2023 8:40 AM CDT [facility] Hemoglobin 7.9(L) 12.0 - 17.6 gm/dL 05/01/2023 8:40 AM CDT [facility] Hematocrit 23.3(L) 35.2 - 51.7 % 05/01/2023 8:40 AM CDT [facility] MCV 87.3 80.7 - 98.3 fl 05/01/2023 8:40 AM CDT [facility] MCH 29.6 26.7 - 34.0 pg 05/01/2023 8:40 AM CDT [facility] MCHC 33.9 30.8 - 35.9 gm/dL 05/01/2023 8:40 AM CDT [facility] Platelet Count 288 153 - 416 x10E9/L 05/01/2023 8:40 AM CDT [facility] RDW-CV 16.6(H) 12.1 - 14.9 % 05/01/2023 8:40 AM CDT [facility] MPV 10.6 9.4 - 12.9 fl 05/01/2023 8:40 AM CDT [facility] Blood BLOOD SPECIMEN / Unknown Venipuncture / Unknown 05/01/2023 8:34 AM CDT 05/01/2023 8:34 AM CDT Karma Delcid MD LAB - HEMATOLOGY ORD ERABLES [facility] [address] [place] [address] * (ABNORMAL) RENAL FUNCTION PANEL (05/01/2023 8:34 AM CDT) Only the most recent of15 resultswithin the time period is included. Glucose 139(H) 70 - 105 mg/dL 05/01/2023 8:57 AM CDT [facility] Sodium 122(LL) 136 - 145 mmol/L 05/01/2023 8:57 AM CDT [facility] Potassium 4.5 3.5 - 5.1 mmol/L 05/01/2023 8:57 AM CDT [facility] Chloride 88(L) 98 - 107 mmol/L 05/01/2023 8:57 AM CDT [facility] CO2 22(L) 23 - 31 mmol/L 05/01/2023 8:57 AM CDT [facility] Calcium 10.2 8.4 - 10.4 mg/dL 05/01/2023 8:57 AM CDT [facility] Anion Gap 12 8 - 18 mmol/L 05/01/2023 8:57 AM CDT [facility] BUN 62(H) 8.4 - 25.7 mg/dL 05/01/2023 8:57 AM CDT [facility] Creatinine 8.72(H) 0.72 - 1.25 mg/dL 05/01/2023 8:57 AM CDT [facility] Albumin 3.3 3.2 - 4.6 gm/dL 05/01/2023 8:57 AM CDT [facility] Phosphorus 5.5(H) 2.3 - 4.7 mg/dL 05/01/2023 8:57 AM CDT [facility] eGFR by CKD-EPI 6(L) >=90 mL/min/1.7 3 m2 05/01/2023 8:57 AM CDT [facility] Blood BLOOD SPECIMEN / Unknown Venipuncture / Unknown 05/01/2023 8:34 AM CDT 05/01/2023 8:34 AM CDT Karma Delcid MD LAB - CHEMISTRY RJ AYALA Performing Organization Address [facility]/ZIP Co de Phone Number [facility] [address] [place], [place] [id number] * (ABNORMAL) FOLATE (04/27/2023 10:47 AM CDT) Folate 5.1(L) 7.0 - 31.4 ng/mL 04/27/2023 12:01 PM CDT [facility] Blood BLOOD SPECIMEN / Unknown Venipuncture / Unknown 04/27/2023 10:47 AM CDT 04/27/2023 11:07 AM CDT Karma Delcid MD LAB - CHEMISTRY ORDShahida AYALA Performing Organization Address [facility] Co de Phone Number [facility] [address] [place] [address] * (ABNORMAL) IRON + TRANSFERRIN PANEL (04/27/2023 10:47 AM CDT) Iron 46(L) 65 - 175 ug/dL 04/27/2023 11:26 AM CDT [facility] Transferrin 175 163 - 344 mg/dL 04/27/2023 11:26 AM CDT [facility] TIBC Calculated 219(L) 240 - 450 ug/dL 04/27/2023 11:26 AM CDT [facility] Iron Saturation % 21 20 - 50 % 04/27/2023 11:26 AM CDT [facility] Blood BLOOD SPECIMEN / Unknown Venipuncture / Unknown 04/27/2023 10:47 AM CDT 04/27/2023 11:07 AM CDT Karma Delcid MD LAB - CHEMISTRY RJ ARSLANMARIA ELENA Performing Organization Address [facility]/ZIP Co de Phone Number [facility] [address] [place] [address] * (ABNORMAL) FERRITIN (04/27/2023 10:47 AM CDT) Pathologist [facility] Ferritin 1,435(H) 22 - 275 ng/mL 04/27/2023 12:01 PM CDT [facility] Blood BLOOD SPECIMEN / Unknown Venipuncture / Unknown 04/27/2023 10:47 AM CDT 04/27/2023 11:07 AM CDT Karma Delcid MD LAB - CHEMISTRY RJ AYALA Performing Organization Address [facility] de Phone Number [facility] [id number] [place] [address] * (ABNORMAL) BASIC METABOLIC PANEL (CALCIUM TOTAL) (04/27/2023 4:54 AM CDT) Only the most recent of11 resultswithin the time period is included. Pathologist [facility] Glucose 118(H) 70 - 105 mg/dL 04/27/2023 5:54 AM CDT [facility] Sodium 125(L) 136 - 145 mmol/L 04/27/2023 5:54 AM CDT [facility] Potassium 5.5(H) 3.5 - 5.1 mmol/L 04/27/2023 5:54 AM CDT [facility] Chloride 89(L) 98 - 107 mmol/L 04/27/2023 5:54 AM CDT [facility] CO2 25 23 - 31 mmol/L 04/27/2023 5:54 AM CDT [facility] Calcium 9.4 8.4 - 10.4 mg/dL 04/27/2023 5:54 AM CDT [facility] Anion Gap 11 8 - 18 mmol/L 04/27/2023 5:54 AM CDT [facility] BUN 31(H) 8.4 - 25.7 mg/dL 04/27/2023 5:54 AM CDT [facility] Creatinine 5.34(H) 0.72 - 1.25 mg/dL 04/27/2023 5:54 AM CDT [facility] eGFR by CKD-EPI 11(L) >=90 mL/min/1.7 3 m2 04/27/2023 5:54 AM CDT [facility] Blood BLOOD SPECIMEN / Unknown Venipuncture / Unknown 04/27/2023 4:54 AM CDT 04/27/2023 5:31 AM CDT Karma Delcid MD LAB - CHEMISTRY RJ AYALA [facility] [address] [place] [id number] * TRANSFUSE RED BLOOD CELL LEUKOREDUCED UNIT(S) (04/22/2023 3:02 AM CDT) Jacquelyn Shetty MD NURSING - BLOOD PROD TRANSFUSION * PREPARE (CROSSMATCH) RBC UNIT(S), 2 Units (04/21/2023 11:53 PM CDT) Unit Description AS1 LR PRBC [facility] Unit ABO O [facility] Unit Rh POS [facility] Product Number R02 [facility] Unit Donor # [id number] [facility] C BLOOD BANK Unit Status transfused [facility] Product Code [id number] [facility] Blood Type Barcode 5100 [facility] Expiration Date D [facility] Unit Description AS1 LR PRBC [facility] BLOOD [facility] Unit ABO O [facility] B[facility]OD [facility] Unit Rh POS DP BLOOD BANK Product Number R02 DP BLOOD BANK Unit Donor # [id number] [facility] C BLOOD BANK Unit Status transfused [facility] Product Code [id number] [facility] Blood Type Barcode 5100 [facility] Expiration Date D [facility] Blood Bank BLOOD SPECIMEN / Unknown 04/20/2023 1:15 PM CDT Silvia Rincon MD LAB - BLOOD BANK ORDERABLES [facility] [address] [phone] * TRANSFUSE RED BLOOD CELL LEUKOREDUCED UNIT(S) (04/20/2023 7:54 PM CDT) Jacquelyn Shetty MD NURSING - BLOOD PROD TRANSFUSION * PATHOLOGY TISSUE EXAM (STL) (04/20/2023 7:41 PM CDT) Case Report Surgical Pathology Report Case: [id number] Authorizing Provider: Matt Beyer DO Collected: 04/20/2023 07:41 PM Ordering Location: [facility] Received: 04/23/2023 06:38 AM Pathologist: Tl Doss MD Specimen: Artery Athero Plaque, LEFT ILIOFEMORAL ENDARTERECTOMY 04/25/2023 9:27 AM T [facility] Final Diagnosis A. Left iliofemoral, endarterectomy: -- Calcific atherosclerosis 04/25/2023 9:27 AM T [facility] Clinical History Peripheral arterial disease 04/25/2023 9:27 AM T [facility] Gross Description Received in formalin in a sterile container labeled Brandie Morrissey Jr, left iliofemoral endarterectomy, are multiple yellow-corbin atherosclerotic plaques of tissue measuring 2.3 x 1.3 x 0.6 cm in aggregate. Manager Continuous Improvement sections are submitted in cassette A1 for decalcification. CH/eh 04/25/2023 9:27 AM T [facility] Microscopic Description Microscopic examination substantiates the above cited diagnosis. MC 04/25/2023 9:27 AM T [facility] Disclaimer All histochemical and/or immunohistochemical results are interpreted with controls that demonstrate appropriate staining reactions before reporting results. Note on use of immunocytochemistry reagents: This test was developed and its performance characteristic determined by [facility] / [facility], Department of Laboratory Medicine. It has not [...] interpreted with caution. 04/25/2023 9:27 AM CDT [facility] Embedded Images 04/25/2023 9:27 AM CDT [facility] Pathology/Cytolo gy ATHEROMA / Unknown 04/20/2023 7:41 PM CDT 04/23/2023 6:38 AM CDT Matt Beyer DO LAB - PATHOLOGY/CY TOLOGY ORDERABLES [facility] [address] [place] [address] * ETT LINE PERFORMABLE (04/20/2023 6:09 PM CDT) Narrative Akhil Sanders APRN-CRNA - 04/20/2023 6:09 PM CDT Akhil Sanders APRN-CRNA 04/20/2023 6:09 PM Endotracheal Tube Placement: Patient Location: OR. Intubation Event Date/Time: 04/20/2023 6:01 PM Procedure: intubation (09837). Procedure Section: Sedation: under general anesthesia. Indications [...] - 38.4 sec 04/20/2023 1:50 PM CDT [facility] Blood BLOOD SPECIMEN / Unknown Venipuncture / Unknown 04/20/2023 1:32 PM CDT 04/20/2023 1:38 PM CDT Narrative [facility] - 04/20/2023 1:50 PM CDT Heparin Therapeutic Range for PTT: 69.0 - 110.0 seconds. [facility] LPN-PAINTER DRUM LAB - COAGULAT ION ORDERABLES Performing Organization Address [facility] Co de Phone Number [facility] [address] [place] [address] * PT-INR (04/20/2023 1:32 PM CDT) Only the most recent of2 resultswithin the time period is included. PT 14.2 12.1 - 14.8 sec 04/20/2023 1:50 PM CDT [facility] INR 1.1 0.9 - 1.1 04/20/2023 1:50 PM CDT [facility] Blood BLOOD SPECIMEN / Unknown Venipuncture / Unknown 04/20/2023 1:32 PM CDT 04/20/2023 1:38 PM CDT Narrative [facility] - 04/20/2023 1:50 PM CDT Conventional Warfarin Anticoagulant Therapy: INR Reference Range: 2.0-3.0 Intensive Warfarin Anticoagulant Therapy: INR Reference Range: 2.5-3.5 [facility] HEALTH LPN-PAINTER DR[facility] LAB - COAGULAT ION ORDERABLES Performing Organization Address [facility]/ZIP Co de Phone Number [facility] [address] [place] [address] * TYPE + SCREEN PANEL (04/20/2023 1:10 PM CDT) Only the most recent of3 resultswithin the time period is included. ABO Rh O POS 04/20/2023 1:59 PM CDT [facility] Comment:History checked. Antibody Screen NEG 1:59 PM CDT [facility] Blood Bank BLOOD SPECIMEN / Unknown Venipuncture / Unknown 04/20/2023 1:10 PM CDT 04/20/2023 1:15 PM CDT Silvia Rincon MD LAB - BLOOD BANK ORDERABLES [facility] [address] [phone] * (ABNORMAL) CBC W AUTO DIFFERENTIAL (04/20/2023 1:10 PM CDT) Only the most recent of15 resultswithin the time period is included. WBC 7.2 4.4 - 10.7 x10E9/L 04/20/2023 1:21 PM CDT [facility] WBC Corrected 04/20/2023 1:21 PM CDT [facility] RBC 2.18(L) 3.80 - 5.40 x10E12/L 04/20/2023 1:21 PM CDT [facility] Hemoglobin 6.9(L) 12.0 - 17.6 gm/dL 04/20/2023 1:21 PM CDT [facility] Hematocrit 20.4(L) 35.2 - 51.7 % 04/20/2023 1:21 PM CDT [facility] MCV 93.6 80.7 - 98.3 fl 04/20/2023 1:21 PM CDT [facility] MCH 31.7 26.7 - 34.0 pg 04/20/2023 1:21 PM CDT [facility] MCHC 33.8 30.8 - 35.9 gm/dL 04/20/2023 1:21 PM CDT [facility] Platelet Count 212 153 - 416 x10E9/L 04/20/2023 1:21 PM CDT [facility] RDW-CV 14.1 12.1 - 14.9 % 04/20/2023 1:21 PM CDT [facility] MPV 10.9 9.4 - 12.9 fl 04/20/2023 1:21 PM CDT [facility] Neutrophils % 80.3(H) 44.0 - 73.0 % 04/20/2023 1:21 PM CDT [facility] Lymphocytes % 5.7(L) 20.0 - 43.0 % 04/20/2023 1:21 PM CDT [facility] Monocytes % 11.7 5.0 - 13.0 % 04/20/2023 1:21 PM CDT [facility] Eosinophils % 1.0 0.0 - 6.0 % 04/20/2023 1:21 PM CDT [facility] Basophils % 0.7 0.0 - 2.0 % 04/20/2023 1:21 PM CDT [facility] Immature Granulocytes 0.6 0 - 1 % 04/20/2023 1:21 PM CDT [facility] Neutrophil Absolute 5.75 2.01 - 7.14 x10E9/L 04/20/2023 1:21 PM CDT [facility] Lymphocytes Absolute 0.41(L) 1.07 - 3.94 x10E9/L 04/20/2023 1:21 PM CDT [facility] Monocytes Absolute 0.84 0.26 - 1.07 x10E9/L 04/20/2023 1:21 PM CDT [facility] Eosinophils Absolute 0.07 0 - 0.47 x10E9/L 04/20/2023 1:21 PM CDT [facility] Basophils Absolute 0.05 0 - 0.08 x10E9/L 04/20/2023 1:21 PM CDT [facility] Immature Granulocytes Absolute 0.04 0.00 - 0.06 x10E9/L 04/20/2023 1:21 PM CDT [facility] nRBC Auto 0 /100 WBC 04/20/2023 1:21 PM CDT [facility] Blood BLOOD SPECIMEN / Unknown Venipuncture / Unknown 04/20/2023 1:10 PM CDT 04/20/2023 1:15 PM CDT Silvia Rincon MD LAB - HEMATOLOGY ORDERABLES [facility] [id number] [place] [address] * HYBRID IMAGING (04/19/2023 5:30 PM CDT) Only the most recent of2 resultswithin the time period is included. Narrative [facility] - 04/23/2023 2:10 PM CDT Please see the progress note. Matt Beyer DO CARDIAC SUPPORT STAFF R [facility] [id number] [place] [address] * ETT LINE PERFORMABLE (04/19/2023 3:58 PM CDT) Narrative Bradley Sharma APRN-CRNA - 04/19/2023 3:58 PM CDT Bradley Sharma APRN-CRNA 04/19/2023 3:59 PM Endotracheal Tube Placement: Patient Location: OR. Intubation Event Date/Time: 04/19/2023 3:54 PM Procedure: intubation ([id number]). Procedure Section: Sedation: under general anesthesia. Indications [...] Patient Location: Holding Area. Procedure: Arterial Line ([id number]). Procedure Section Indications: continuous blood pressure monitoring [...] - 34 U/L 04/19/2023 6:19 AM CDT [facility] Protein Total 6.2(L) 6.4 - 8.3 gm/dL 04/19/2023 6:19 AM CDT [facility] Albumin 3.4 3.2 - 4.6 gm/dL 04/19/2023 6:19 AM CDT [facility] Bilirubin Total 0.4 0.2 - 1.2 mg/dL 04/19/2023 6:19 AM CDT [facility] eGFR by CKD-EPI 7(L) >=90 mL/min/1.7 3 m2 04/19/2023 6:19 AM CDT [facility] Blood BLOOD SPECIMEN / Unknown Venipuncture / Unknown 04/19/2023 5:15 AM CDT 04/19/2023 5:49 AM CDT Maria Isabel Barrios APRN-PAINTER DRUM LAB - CHEMISTR Y ORDERABLES Performing Organization Address [facility] Co de Phone Number [facility] [address] [place] [address] * (ABNORMAL) PHOSPHORUS BLOOD (04/19/2023 5:15 AM CDT) Only the most recent of7 resultswithin the time period is included. Phosphorus 7.3(H) 2.3 - 4.7 mg/dL 04/19/2023 6:15 AM CDT [facility] Blood BLOOD SPECIMEN / Unknown Venipuncture / Unknown 04/19/2023 5:15 AM CDT 04/19/2023 5:49 AM CDT Adele Cabrera MD LAB - CHEMISTRY ORDE RABLES Performing Organization Address [facility] Co de Phone Number [facility] [address] [place] [address] * MAGNESIUM BLOOD (04/19/2023 5:15 AM CDT) Only the most recent of12 resultswithin the time period is included. Magnesium 2.2 1.6 - 2.6 mg/dL 04/19/2023 6:15 AM CDT [facility] Blood BLOOD SPECIMEN / Unknown Venipuncture / Unknown 04/19/2023 5:15 AM CDT 04/19/2023 5:49 AM CDT Adele Cabrera MD LAB - CHEMISTRY RJ AYALA [facility] Organization Address City/State/ZIP Co de Phone Number [facility] [address] [place] [address] * (ABNORMAL) ECHO COMPLETE W CONTRAST (04/18/2023 12:35 PM CDT) BSA [id number] m2 [facility] CV FUJI PACS LV biplane [...] I PACS LV RWT 0.473 [facility] CV [facility] I PACS LV An A2C 7.895 cm [facility] CV F UJI PACS LV An A4C 7.563 cm [facility] CV F UJI PACS LV mass m-mode 203.74 88 - 224 g [facility] CV FUJI PACS LV mass index m-mode 98.45 49 - 115 g/m2 [facility] E pk khris 183.498 cm/s [facility] CV F UJI PACS MV avg E/e' ratio 43.09 SS M CV FUJI PACS MV A pk khris 107.563 cm/s S[facility] CV F UJI PACS MV E A ratio 1.71 [facility] E' lateral khris 3.961 cm/s SS M [facility] DT 252 ms [facility] CV [facility] I PACS MV E' septal khris 4.604 cm/s [facility] E/e' septal 39.858 [facility] C V FUJI PACS MV E/e' lateral 46.329 [facility] TR pk khris 273.9 cm/s [facility] CV [facility] I PACS LVOT pk khris 0.89 m/s [...] 30 mmHg SSM CV FU JI PACS WA pk grad 7 mmHg SSM CV FU JI PACS PV pk khris 136.348 cm/s SSM CV FUJ I PACS PV pk grad 7 mmHg SSM CV FU JI PACS [id number] 6.907 cm SSM CV FUJ I PACS [id number] 6.723 cm SSM CV FUJ I PACS [...] Normal, Adequate platelets 04/17/2023 8:42 AM CDT [facility] Poikilocytosis 1+(A) None 04/17/2023 8:42 AM CDT [facility] Crenated Cells 1+(A) None 04/17/2023 8:42 AM CDT [facility] Blood BLOOD SPECIMEN / Unknown Venipuncture / Unknown 04/17/2023 5:43 AM CDT 04/17/2023 6:03 AM CDT Adele Cabrera MD LAB - HEMATOLOGY ORD ERABLES Performing Organization Address City/[facility] Co de Phone Number [facility] [address] [place] [address] * EKG 12-LEAD (04/13/2023 2:41 PM CDT) Only the most recent of3 resultswithin the time period is included. Ventricular Rate 75 BPM [facility] Atrial Rate 75 BPM [facility] P-R Interval 236 ms [facility] QRS Duration ms 142 ms [facility] Q-T Interval ms 514 ms [facility] QTC Calculation (Bezet) 573 ms [facility] Calculated P [place] 74 degrees [facility] Calculated R [place] -20 degrees [facility] Calculated T [place] -152 degrees [facility] Interpretation EKG Sinus rhythm with 1st degree A-V block with frequent Premature ventricular complexes Right bundle branch block T wave abnormality, consider lateral ischemia Abnormal ECG No previous ECGs available Confirmed by WILLIAM KIRBY MD ([id number]) on 04/16/2023 5:21:48 PM [facility] 04/13/2023 2:41 PM CDT 04/16/2023 5:21 PM CDT Rico Gallagher MD ECG ORDERABLES Performing Organization Address [facility] Co de Phone Number [facility] * NM MYOCARD PERF REST [...] mCi of Tc99m Tetrofosmin at rest and 55cIgZb36g Tetrofosmin at stress. 0.4 mg of Lexiscan [...] resultswithin the time period is included. Pathologist [facility] Troponin I 0.948(HH) <0.038 ng/mL 04/12/2023 12:45 PM CDT [facility] Blood BLOOD SPECIMEN / Unknown Venipuncture / Unknown 04/12/2023 12:02 PM CDT 04/12/2023 12:11 PM CDT Parveen Sewell MD LAB - CHEMISTRY RJ AYALA [facility] [address] [place] [address] * TSH REFLEX FREE T4 (04/12/2023 3:52 AM CDT) Pathologist [facility] TSH 1.592 0.350 - 4.940 uIU/mL 04/12/2023 5:04 AM CDT [facility] Blood BLOOD SPECIMEN / Unknown Venipuncture / Unknown 04/12/2023 3:52 AM CDT 04/12/2023 4:04 AM CDT Parveen Sewell MD LAB - CHEMISTRY RJ AYALA Performing Organization Address [facility] Co de Phone Number [facility] [address] [place] [address] * AMMONIA (04/12/2023 3:52 AM CDT) Ammonia 19 18 - 72 umol/L 04/12/2023 4:19 AM CDT [facility] Blood BLOOD SPECIMEN / Unknown Venipuncture / Unknown 04/12/2023 3:52 AM CDT 04/12/2023 4:02 AM CDT Parveen Sewell MD LAB - CHEMISTRY JR AYALA Performing Organization Address [facility] de Phone Number [facility] [address] [place] [address] * LACTIC ACID BLOOD (04/11/2023 11:37 PM CDT) Only the most recent of3 resultswithin the time period is included. Lactic Acid 0.50 <=2 mmol/L 04/12/2023 12:00 AM CDT [facility] Blood BLOOD SPECIMEN / Unknown Venipuncture / Unknown 04/11/2023 11:37 PM CDT 04/11/2023 11:48 PM CDT Parveen Sewell MD LAB - CHEMISTRY RJ AYALA Performing Organization Address [facility] de Phone Number [facility] [id number] [place] [phone] * (ABNORMAL) COAGULATION PANEL W D-DIMER (04/11/2023 3:13 PM CDT) PT 14.0 12.1 - 14.8 sec 04/11/2023 3:35 PM CDT [facility] INR 1.1 0.9 - 1.1 [...] Sewell MD LAB - COAGULATION OR DERABLES [facility] [address] [place] [address] * (ABNORMAL) BLOOD GASES ARTERIAL [...] BLOOD GASES OR DERABLES Performing Organization Address City/State/[facility] Co de Phone Number [facility] [address] [phone] * XR CHEST 1VW PORTABLE (04/11/2023 2:40 [...] Event Date/Time: 04/11/2023 1:40 PM Procedure: intubation ([id number]). Procedure Section: Sedation: none. Procedure pretreatments used? [...] minutes. Staff Section Anesthesia Provider: Dank Casey, HOME HEALTH LPN-STITCH BONDING MACHINE OPERATOR, Performed the procedure Diamond Spring MD GENERAL ANESTHESIA O EDGAR * ARTERIAL LINE PERFORMABLE (04/11/2023 1:57 PM CDT) Narrative Diamond Spring MD - 04/11/2023 1:57 PM CDT Dank Casey, PIPER 04/11/2023 2:01 PM Arterial Line Placement Procedure Note Patient Location: OR. Procedure: Arterial Line ([id number]). Procedure Section Indications: hypotension and renal failure. [...] No Staff Section Anesthesia Provider: Dank Casey, HOME HEALTH LPN-STITCH BONDING MACHINE OPERATOR, Performed the procedure Diamond Spring MD GENERAL ANESTHESIA O YAIMAERAMARIO * LACTIC ACID BLOOD REFLEX TO REPEAT (04/07/2023 11:52 AM CDT) Lactic Acid 0.54 <=2 mmol/L 04/07/2023 12:20 PM CDT [facility] Blood BLOOD SPECIMEN / Unknown Venipuncture / Unknown 04/07/2023 11:52 AM CDT 04/07/2023 12:00 PM CDT Ilan Black MD LAB - CHEMISTRY RJ AYALA [facility] [address] [place] [address] * CT ANGIO ABDOMEN AORTA [...] DATE/TIME OF EXAM: 04/07/2023 9:55 AM, LOCATION [facility] INDICATION: I70.90: Unspecified atherosclerosis ADDITIONAL CLINICAL INFORMATION: [...] RUNOFF, DATE/TIME OF EXAM:04/07/2023 9:55 AM, LOCATION [facility] INDICATION: I70.90: Unspecified atherosclerosis ADDITIONAL CLINICAL INFORMATION: [...] ANTIBODY QUANT (04/07/2023 8:19 AM CDT) Pathologist [facility] Hepatitis B Virus Surface Antibody Quantitative 33.58(H) 0.00 - 7.99 mIU/ml 04/07/2023 1:34 PM CDT [facility] HBsAb REACTIVE( A) Non Reactive 04/07/2023 1:34 PM CDT [facility] Blood BLOOD SPECIMEN / Unknown Venipuncture / Unknown 04/07/2023 8:19 AM CDT 04/07/2023 8:31 AM CDT Narrative [facility] - 04/07/2023 1:34 PM CDT Individual is considered immune to HBV infection. Marito Rios MD LAB - SEROLOGY ORDER JENNIFER Performing Organization Address City/State/[facility] Co de Phone Number [facility] [address] [place] [address] * HEPATITIS SCREEN ACUTE (04/07/2023 8:19 AM CDT) Pathologist [facility] HAV Antibody IgM Non Reactive Non Reactive 04/07/2023 9:28 AM CDT [facility] HBsAg Non Reactive Non Reactive 04/07/2023 9:28 AM CDT [facility] HBc Antibody IgM Non Reactive Non Reactive 04/07/2023 9:28 AM CDT [facility] HCV Antibody Screen Non Reactive Non Reactive 04/07/2023 9:28 AM CDT [facility] Blood BLOOD SPECIMEN / Unknown Venipuncture / Unknown 04/07/2023 8:19 AM CDT 04/07/2023 8:31 AM CDT Narrative [facility] - 04/07/2023 9:28 AM CDT Non Reactive - Antibodies to Hepatitis C virus (HCV) were not detected, result does not exclude early acute HCV infection. Marito Rios MD LAB - CHEMISTRY RJ AYALA Performing Organization Address [facility] Co de Phone Number [facility] [address] [place] [address] * HEMOGLOBIN A1C (04/07/2023 4:28 AM CDT) Hemoglobin A1c 4.8 <5.7 % 04/07/2023 5:05 AM CDT [facility] Estimated Average Glucose 91 mg/dL 04/07/2023 5:05 AM CDT [facility] Blood BLOOD SPECIMEN / Unknown Venipuncture / Unknown 04/07/2023 4:28 AM CDT 04/07/2023 4:36 AM CDT Narrative [facility] - 04/07/2023 5:05 AM CDT [...] exceeds 5% in the specimen. The Mitchell Body Repairer assay for the measurement of HbA1c is a National Glycohemoglobin Standardization Program (NGSP) certified method. Susana MUSE LAB - CHEMISTRY Elli HERNÁNDEZ Performing Organization Address [facility] Co de Phone Number [facility] [address] [place] [address] * VAS ARTERIAL ANKLE ARM INDEX (04/05/2023 2:55 PM CDT) Anatomical Region Laterality Modality Ankle / Foot, Upper Extremity Ul trasound 04/05/2023 2:37 PM CDT Narrative Procedure Note Juan A Bassett MD - 04/05/2023 [facility] [place] [facility] [address] [address] [address], [address] [place] [address] Lower Extremity Arterial Doppler Report Pat.Name: GUILLERMO BRANDIE Ashlyn MCKAY Pat.ID: [id number] .Date: 04/05/2023 Refer.MD: Juan A Bassett Exam Time: 2:37:00 PM Study Type:MARTY/PVR Age: 7 1945,77Y Sex: MALE Sonogrphr: Ebenezer Terrazas Rvt Pat. Stat.:Outpatient CPT - 4: 73121 Reason for Study: Pain -Leg, left Procedures: Ankle Arm Index Race: 2 Visit ID: [id number] ++++++++++++++++++++++++++++++++++++ SUMMARY: ++++++++++++++++++++++++++++++++++++ Severe arterial disease in [...] monophasic. Arterial doppler waveforms of the left ELECTRIC MOTOR REPAIRMAN are absent. Arterial doppler waveforms of the left DPA are absent. MARTY: Rt ankle brachial index is 1.5. Left ankle brachial index is 0.0 (normal greater than 0.90). Arterial doppler waveforms of the right ELECTRIC MOTOR REPAIRMAN are monophasic. Arterial doppler waveforms of the right DPA are biphasic. Arterial doppler waveforms of the left ELECTRIC MOTOR REPAIRMAN are absent. Arterial doppler waveforms of the [...] Procedure Note Dank George MD - 01/27/2019 [facility] [place] [address], [address] [place] [address] Hemodialysis Graft Report Pat.Name: BRANDIE MORRISSEY JR Pat.ID: [id number] .Date: 01/27/2019 Exam Time: 9:59:00 AM Study Type:Hemodialysis Graft Age: 7 1945,73Y Sex: MALE Sonogrphr: Ishmael Terrazas RVT Pat. Stat.:Outpatient ICD - 9: N18.6 End stage renal disease CPT - 4: 00227 Procedures: Vessel Mapping for Hemodialysis Race: 2 Visit ID: [id number] ++++++++++++++++++++++++++++++++++++ SUMMARY: ++++++++++++++++++++++++++++++++++++ Patent left upper AV [...] Procedure Note Dank George MD - 06/03/2018 [facility] [place] [facility] [address] [facility] [address], [address] [place] [address] Vessel Mapping for Hemodialysis Report Pat.Name: BRANDIE MORRISSEY Pat.ID: [id number] St.Date: 06/03/2018 Exam Time: 12:05:00 PM Study Type:Vessel Mapping for Hemodialysis Age: 7 1945,73Y Sex: MALE Sonogrphr: Ishmael Terrazas RVT Pat. Stat.:Outpatient ICD - 9: N18.6 End stage renal disease CPT - 4: G0365 Procedures:Vessel Mapping for Hemodialysis Race: 2 Visit ID: [id number] ++++++++++++++++++++++++++++++++++++ SUMMARY: ++++++++++++++++++++++++++++++++++++ The cephalic and basilic [...] MD VASCULAR LAB ORDER JENNIFER Care Teams Hat Forming Machine Feeder Relationship Specialty Start Date End Date Mariza Carrion MD [address] [place] [address] PCP - General Family Medicine 08/26/18
--- OUTSIDE RECORDS SUMMARY | 2024-12-30 20:00 | XMS_ITS | Clinical Summary ---
Author Organization [facility] Address [address] [place] [address] Care Team Providers Care Email Producer Name Role Phone Mariza Carrion MD Primary Care Provider Source Comments [facility],non-owned Affiliates and Associated Physician Practices is amultiple site organization consisting of ambulatory clinics and hospital sitesin [place], [place], [place] and [place]. This disclosure is being madepursuant to the Care Everywhere program and may not contain all information available regarding this patient. Last updated 18.[facility] Allergies No known active allergies Medications * [...] Use pads 5 times daily 09/19/2018 Active zfydp-0-brto ethyl esters (LOVAZA) 1 g capsule Take [...] FOR MUSCLE SPASM 09/03/2024 Active HYDROcodone-aceta minophen (Easley) 5-325 MG tablet 12/15/2023 Active Lokelma 10 [...] Department Care Team Description 11/04/2024 Orders Only [facility] - Urology [address], [address] [place] [id number] Anita Shay MA Urinary retention from Last [...] and heating? Not hard at all 04/06/2023 [facility] [place] [facility] Occupat ional Health - Occupational Stress [...] place to sleep or slept in a [place] health care facility (including now)? No 04/06/2023 Sex and Gender Information Value Date Recorded Sex Assigned at Not on file Gender Identity Not on file Sexual Orientation Not on file Last Filed Vital Signs Vital Sign Reading Time Taken Comments Blood Pressure 147/70 09/22/2024 8:55 AM HASHER OPERATOR Pulse 68 09/22/2024 8:55 AM HASHER OPERATOR Temperature 36.2 C (97.2 F) 09/22/2024 7:24 AM HASHER OPERATOR Respiratory Rate 15 09/22/2024 8:55 AM HASHER OPERATOR Oxygen Saturation 92% 09/22/2024 8:55 AM HASHER OPERATOR Inhaled Oxygen Concentration 25% 04/11/2023 7 :26 PM CDT Weight 87.9 kg (193 lb 12.6 oz) 09/22/2024 7:24 AM HASHER OPERATOR Height 170.2 cm (5' 7 ) 09/22/2024 7:24 AM HASHER OPERATOR Body Mass Index 30.35 09/22/2024 7:24 AM HASHER OPERATOR Plan of Treatment Upcoming Encounters Date Type Department Care Team (Late st Contact Info) Description 03/23/2025 8:00 AM CDT Appointment [facility] Vascular Services [id number] [place] [address], [address] [place], [place] [id number] [place] [address] [address] [address] [place] [id number] Health Maintenance Due Date Last Done Comments [...] this topic Medical Devices Implanted Type Area Dinkey Motor Operator Device Identifier Shelf Expiration Date Model / Serial / Lot Mynxgrip Vascular Closure Device Implanted:Qty: 1 on 04/11/2023 by Matt Beyer DO at [facility] Right: Groin 01/19/2025 [id number] / [id number] / [id number] 5tch Cv 6x1cm Photofix Decellularized Implanted:Qty: 1 on 04/20/2023 by Matt Beyer DO at [facility] N/A: Other (See Descriptio n) [employer] 01/28/2024 [id number] / / [id number] Description:LEFT FEMORAL ART BARI Procedures Procedure Name Priority Date/Time Associated Diagnosis Comments HEPATITIS SCREEN ACUTE STAT 04/07/2023 8:19 AM CDT from Last 3 Months or Most Recently Relevant to Health Maintenance Results * HEPATITIS SCREEN ACUTE (04/07/2023 8:19 AM CDT) HAV Antibody IgM Non Reactive Non Reactive 04/07/2023 9:28 AM CDT [facility] HBsAg Non Reactive Non Reactive 04/07/2023 9:28 AM CDT [facility] HBc Antibody IgM Non Reactive Non Reactive 04/07/2023 9:28 AM CDT [facility] HCV Antibody Screen Non Reactive Non Reactive 04/07/2023 9:28 AM CDT [facility] Blood BLOOD SPECIMEN / Unknown Venipuncture / Unknown 04/07/2023 8:19 AM CDT 04/07/2023 8:31 AM CDT Narrative [facility] - 04/07/2023 9:28 AM CDT Non Reactive - Antibodies to Hepatitis C virus (HCV) were not detected, result does not exclude early acute HCV infection. 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
--- OUTSIDE RECORDS SUMMARY | 2024-12-30 20:00 | XMS_ITS | Encounter Summary ---
Author Organization [facility] Healthcare Address [address] [place] [address] Care Team Providers Care Educational Psychology Professor Name Role Phone Efren Hoyos MD Unavailable Dank Hicks MD Unavailable [phone] Mariza Carrion MD Primary Care Provider Encounter Details Date Type Department Care Team (Late st Contact Info) Description 12/30/2024 Telephone [facility] Medical Group Cardiology [address] [address] Dank Hicks MD [address] [address] Social History Tobacco Use Types Packs/Day Years Used Date Smoking Tobacco: Former Cigarettes Smokeless Tobacco: Never Alcohol Use Standard Drinks/Week Comments Yes 0 (1 standard drink = 0.6 oz pur e alcohol) [facility] Utilities Answer Date Recorded In the past 12 months has [employer] electric, gas, oil, or water company threatened [...] often do you attend chur ch or scientologist services? Never 10/23/2024 Do you belong to any clubs o r organizations such as scientology groups, unions, fraternal or athletic groups, or [...] any time in the past 12 m [facility], were you homeless or living in a care home (including now)? No 10/23/2024 Personal Safety Answer Date Recorded Have you ever been in or are you currently in a harmful physical or emotional relationship or is someone making you feel afraid or unsafe? Denies 10/22/2024 Sex and Gender Information Value Date Recorded Sex Assigned at Not on file Legal Sex Male 7:27 PM CASER UP Gender Identity Not on file Sexual Orientation Not on file documented as of this encounter Miscellaneous Notes * Telephone Encounter - Yamel Cesar RN - 12/30/2024 1:30 PM CDT Left message of appointment reminder for 12/31/2024 at 8:30 a.m. this is at our [place] office location. documented in this encounter Plan of Treatment Not on file documented as of this encounter Visit Diagnoses Not on filedocumented in this encounter Care Teams Educational Psychology Professor Relationship Specialty Start Date End Date Mariza Carrion MD [address] [facility] [address] [place] [address] PCP - General Family Practice 03/05/23 Efren Hoyos MD Referring Physician Ophthalmology 06/16/19 Dank Hicks MD [address] [facility] [address] [place] [address] Consulting Physician Cardiology 10/11/21 documented as of this encounter
--- OUTSIDE RECORDS SUMMARY | 2024-12-30 20:00 | XMS_ITS | CONTINUITY OF CARE DOCUMENT ---
Author Name milly atkins Address Unknown Organization [facility] Address [address] [address] [address] [place] [address] Phone [phone] Care Team Providers Care Sofa Cover Inspector Name Role Phone Kostas Pelaez MD Unavailable [phone] Kostas Pelaez MD Unavailable [phone] PROBLEMS Condition Status Date Provider Notes S/P Single chamb PCM Micra - Medtronic ( MRI safe) active Tonie Garay INSURANCE PROVIDERS Payer name Policy type / Coverage type [place] red constitution party ID [employer] [place] [id number] [place] B Medicare [id number]
--- OUTSIDE RECORDS SUMMARY | 2024-12-30 20:00 | XMS_ITS | Referral Summary ---
Author Organization [facility] Address [address] [place] [address] Care Team Providers Care Wedding Cake Designer Name Role Phone Efren Hoyos MD Unavailable Dank Hicks MD Unavailable [phone] Mariza Carrion MD Primary Care Provider Encounters Date Type Department Care Team Description 12/30/2024 Telephone [facility] Medical [facility] Cardiology [address] [facility] [address] [place] [phone] Dank Hicks MD 12/22/2024 Orders Only [facility] Cardiology [address] [facility] [address] [place] [phone] Curt Grady MD 11/25/2024 Telephone [facility] Diabetes and Endocrinology [address] [place] [phone] Bertha Pinto NP [facility] 11/25/2024 Telephone [facility] Diabetes and Endocrinology [address] [place] [phone] Bertha Pinto NP Med Management (Humalog ) 11/24/2024 11:00 AM MOVIE WRITER Office Visit [facility] Medical [facility] Diabetes and Endocrinology [address] [place] [phone] Schleeper, Bertha R., EMISSIONS TESTING AND REPAIR TECHNICIAN Type 2 diabetes mellitus with hyperglycemia, with long-term current use of insulin (CMS/HCC) (Primary Dx); Hypertension associated with diabetes (HCC); Hyperlipidemia associated with type 2 diabetes mellitus (HCC) 11/05/2024 1:30 PM MOVIE WRITER Ancillary Procedure [facility] Cardiology [address] [place] [address] Cardiac pacemaker in situ; Asystole (HCC); Syncope and collapse; Symptomatic bradycardia 11/04/2024 Orders Only [facility] Cardiology [address] [facility] [address], [place] [address] Dank Hicks MD Cardiac pacemaker in situ (Primary Dx); Asystole (HCC); Syncope and collapse; Symptomatic bradycardia 10/22/2024 8:28 PM MOVIE WRITER - 10/25/2024 3:09 PM MOVIE WRITER Hospital Encounter [address] [address] Guru Miller MD Brother, Michele, [...] insulin (HCC) [E11.65, Z79.4]; Asystole (CMS/HCC) ([facility]) [I46.9] Discharge Disposition: Discharge to home or self care 10/24/2024 12:58 PM MOVIE WRITER Anesthesia Event [facility] Cardiac Catheterization Lab [address] [place] [address] Bahman Arrington MD Sheehan, Whitney Elise, CRNA 10/24/2024 12:30 PM MOVIE WRITER - 10/24/2024 2:30 PM MOVIE WRITER Surgery [facility] Cardiac Catheterization Lab [address] [place] [id number] Darien Jamil Jr., MD LEADLESS, SINGLE CHAMBER PACEMAKER (PPM) INSERTION 10/23/2024 Orders Only [facility] Cardiac Catheterization Lab [address] [place] [address] Darien Jamil Jr., MD Syncope and collapse [...] with long-term current use of insulin ([facility]) Use to test glucose 5 times daily 450 each 2 04/03/20 18 Active lancets (freestyle) 28 gauge miscIndications:T ype 2 diabetes mellitus with hyperglycemia, with long-term current use of insulin ([facility]) Use to test glucose 5 times daily [...] with long-term current use of insulin ([facility]) Change sensor every 14 days 9 kit [...] with long-term current use of insulin ([facility]) Use pads 5 times daily 200 each [...] with long-term current use of insulin ([facility]) Inject 0.5ML(1.5MG total) under the skin every [...] with long-term current use of insulin ([facility]) Use to inject insulin 4x/day 350 each [...] 12/09/2019 Assessment & Plan (09/03/2023 9:28 AM MOVIE WRITER): Chronic problem. HD [facility] in [place]: //Saturdays. LUE fistula. Assessment & Plan (03/05/2023 9:59 AM CDT): Chronic problem. HD [facility] in [place]: //Saturdays. LUE fistula. ESRD on dialysis 05/22/2019 Hyperlipidemia associated with type 2 diabetes fouzia victoria 05/22/2019 Assessment & Plan (11/24/2024 10:10 AM MOVIE WRITER): Chronic problem. Controlled on current Atorvastatin 20mg. Last lipid panel: 03/03/24 LDL=33, TG=75. Assessment & Plan (03/03/2024 8:45 AM CDT): Chronic problem. Controlled on current Atorvastatin 20mg. Last lipid panel: 03/05/23 LDL=57, DG=496. Will update labs today. Does not mychart. Verified phone #/address to contact re: results. Assessment & Plan (09/03/2023 9:28 AM MOVIE WRITER): Chronic problem. Controlled on current Atorvastatin 20mg. Last lipid panel: 03/05/23 LDL=57, VM=593. Assessment & Plan (03/05/2023 9:53 AM CDT): Chronic problem. Controlled on current Atorvastatin 20mg. Last lipid panel: 12/05/21 LDL=36, MZ=363. Will update labs today. Verified phone #/address to contact re: results. 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 Continue Assessment & Plan (02/08/2018 11:01 AM CDT): Importance of following diet and exercising discussed. Hypertension associated with diabetes 05/22/2017 Assessment & Plan (11/24/2024 10:11 AM MOVIE WRITER): Chronic problem. Controlled on current losartan 100mg daily, amlodipine 10mg daily Assessment & Plan (03/03/2024 8:45 AM CDT): Chronic problem. BP elevated upon arrival. Controlled on current Carvedilol 25mg bid, losartan 100mg daily. No changes at this time. Will update labs today. Does not mychart. Verified phone #/address to contact re: results. Assessment & Plan (09/03/2023 9:28 AM MOVIE WRITER): Chronic problem. BP elevated upon arrival. Controlled [...] renal Assessment & Plan (10/24/2018 12:57 PM MOVIE WRITER): Controlled. Continue current medication plan and follow up with cardiology Assessment & Plan (06/18/2018 2:30 PM CDT): BP controlled on current medication plan. Continue follow up with nephrology Assessment & Plan (02/08/2018 11:00 AM CDT): Continue same medication Assessment & Plan (12/11/2017 10:24 AM MOVIE WRITER): Goal blood pressure is less than 140/85 [...] mellitus Assessment & Plan (11/24/2024 10:16 AM MOVIE WRITER): Chronic problem, controlled on current regimen. A1c [...] daily for skin breakdown and infection (sees leather scrubber regularly). Assessment & Plan (03/03/2024 9:19 AM [...] daily for skin breakdown and infection (sees leather scrubber regularly). Assessment & Plan (09/03/2023 9:27 AM MOVIE WRITER): Chronic problem, controlled on current regimen. A1c [...] daily for skin breakdown and infection (sees leather scrubber regularly). Assessment & Plan (03/05/2023 10:13 AM CDT): Chronic problem, controlled on current regimen. Current medications: Trulicity 1.5mg weekly Lantus 6 units every morning Humalog 4 units before meals For sugars over 160: take 6 units For sugars over 200: take 8 units Seen by [facility] every 4-5 mos; letter sent to get [...] daily for skin breakdown and infection (sees leather scrubber regularly). Will update labs today. Verified phone #/address to contact re: results. Assessment & Plan (11/02/2022 2:43 PM MOVIE WRITER): Well controlled, with risk of hypoglycemia Insuli [...] Ross Assessment & Plan (09/07/2020 2:26 PM MOVIE WRITER): Hba1c was Lab Results Component Value Date [...] Trulicity. Assessment & Plan (12/09/2019 2:03 PM MOVIE WRITER): Your Hba1c today was: Lab Results Component [...] hypoglycemia. Assessment & Plan (10/24/2018 1:00 PM MOVIE WRITER): Stable BG pattern 100-140 reported since last adjustment to plan. No change today. BG goals reviewed. Advised to lower Lantus by 2 units if FBG are < 100 x 2 days/wk. For planned activity, reduce Humalog dose by 1/2 at preceding meal. Assessment & Plan (09/19/2018 11:11 AM MOVIE WRITER): Your Hba1c today was: Lab Results Component Value Date HGBA1C 5.1 09/19/2018 meaning a 3 month average sugar of : 81 Your goal hba1c is under 7.0 to prevent rn long term care diabetes complications ( eye , kidney and [...] time. Assessment & Plan (12/11/2017 10:47 AM MOVIE WRITER): Hba1c was .5.4 Today, 1800 calorie, consistent [...] 05/22/2019 Assessment & Plan (09/19/2018 11:20 AM MOVIE WRITER): Prevention and treatment of hypoglycemia were discussed [...] therapy Assessment & Plan (10/24/2018 12:57 PM MOVIE WRITER): Check lipid panel Assessment & Plan (06/18/2018 2:31 PM CDT): Continue statin therapy Assessment & Plan (02/08/2018 11:00 AM CDT): Continue atorvastatin Assessment & Plan (12/11/2017 10:45 AM MOVIE WRITER): Goal of treatment , LDL cholesterol less [...] 0.6 oz pur e alcohol) [facility] [employer] Answer Date Recorded In the past 12 months has [employer], [employer], oil, or water [employer] threatened to shut off services in your [...] week 10/23/2024 [facility] services? Never 10/23/2024 Do you belong to any clubs o r organizations such as jewish groups, unions, fraternal or athletic groups, or [...] on file Legal Sex Male 7:27 PM MOVIE WRITER Gender Identity Not on file Sexual Orientation Not on file Last Filed Vital Signs Vital Sign Reading Time Taken Comments Blood Pressure 102/58 11/24/2024 9:58 AM MOVIE WRITER Pulse 75 11/24/2024 9:58 AM MOVIE WRITER Temperature 36.3 C (97.3 F) 10/25/2024 2:15 PM MOVIE WRITER Respiratory Rate 20 11/24/2024 9:58 AM MOVIE WRITER Oxygen Saturation 100% 10/25/2024 1:15 PM MOVIE WRITER Inhaled Oxygen Concentration - - Weight 91.3 kg (201 lb 4.5 oz) 10/22/2024 8:29 P M MOVIE WRITER Height 170.2 cm (5' 7.01 ) 11/24/2024 9:58 AM CS T Body Mass Index 31.52 10/22/2024 8:29 PM MOVIE WRITER Plan of Treatment Not on file Medical Devices Implanted Type Area Gas Line Installer Device Identifier Shelf Expiration Date Model / Serial / Lot [employer]onic Inc Micra 2 Av Synchronous Leadless Ventricular Pacemaker [id number] - [id number] - [id number] Implanted:Qty: 1 on 10/24/2024 by Darien Jamil Jr., MD at [facility] [employer] 02/16/2026 [id number] / [id number] / Procedures Procedure Name Priority Date/Time Associated Diagnosis Comments CARDIOLOGY DOCUMENT SCAN Routine 12/10/2024 10:59 AM MOVIE WRITER POCT GLUCOSE Routine 11/24/2024 10:01 AM MOVIE WRITER Type 2 diabetes mellitus with hyperglycemia, with long-term current use of insulin ([facility]) POCT HEMOGLOBIN A1C Routine 11/24/2024 1 0:01 AM MOVIE WRITER Type 2 diabetes mellitus with hyperglycemia, with long-term current use of insulin ([facility]) DEVICE CHECK - IN OFFICE Routine 11/05/2024 1:22 PM MOVIE WRITER Cardiac pacemaker in situ Asystole (HCC) Syncope and collapse Symptomatic bradycardia POCT GLUCOSE DEVICE Routine 10/25/2024 1 2:56 PM MOVIE WRITER POCT GLUCOSE DEVICE Routine 10/25/2024 8 :10 AM MOVIE WRITER POCT GLUCOSE DEVICE Routine 10/25/2024 7 :43 AM MOVIE WRITER EGFR Routine 10/25/2024 5:48 AM MOVIE WRITER BASIC METABOLIC PANEL Routine 10/25/2024 5:48 AM MOVIE WRITER CBC WITHOUT DIFFERENTIAL Routine 10/25/2024 5:48 AM MOVIE WRITER POCT GLUCOSE DEVICE Routine 10/25/2024 2 :25 AM MOVIE WRITER POCT GLUCOSE DEVICE Routine 10/24/2024 8 :31 PM MOVIE WRITER POCT GLUCOSE DEVICE Routine 10/24/2024 4 :33 PM MOVIE WRITER POCT GLUCOSE DEVICE Routine 10/24/2024 2 :03 PM MOVIE WRITER LEADLESS, SINGLE CHAMBER PACEMAKER (PPM) INSERTION Routine 10/24/2024 1:36 PM MOVIE WRITER Syncope and collapse POCT GLUCOSE DEVICE Routine 10/24/2024 1 1:26 AM MOVIE WRITER POCT GLUCOSE DEVICE Routine 10/24/2024 7 :30 AM MOVIE WRITER TSH Routine 10/24/2024 5:12 AM MOVIE WRITER EGFR Routine 10/24/2024 4:59 AM MOVIE WRITER BASIC METABOLIC PANEL Routine 10/24/2024 4:59 AM MOVIE WRITER CBC WITHOUT DIFFERENTIAL Routine 10/24/2024 4:59 AM MOVIE WRITER POCT GLUCOSE DEVICE Routine 10/24/2024 2 :39 AM MOVIE WRITER POCT GLUCOSE DEVICE Routine 10/23/2024 1 0:25 PM MOVIE WRITER POCT GLUCOSE DEVICE Routine 10/23/2024 8 :04 PM MOVIE WRITER POCT GLUCOSE DEVICE Routine 10/23/2024 5 :42 PM MOVIE WRITER HEPATITIS B SURFACE ANTIBODY (IMMUNE STATUS) Routine 10/23/2024 2:45 PM MOVIE WRITER HEPATITIS PANEL, ACUTE Routine 10/23/2024 2:45 PM MOVIE WRITER POCT GLUCOSE DEVICE Routine 10/23/2024 1 2:57 PM MOVIE WRITER HEMODIALYSIS Routine 10/23/2024 9:13 AM MOVIE WRITER POCT GLUCOSE DEVICE Routine 10/23/2024 7 :47 AM MOVIE WRITER EGFR Routine 10/23/2024 5:27 AM MOVIE WRITER DIFFERENTIAL AUTO Routine 10/23/2024 5:2 7 AM MOVIE WRITER MAGNESIUM Routine 10/23/2024 5:27 AM MOVIE WRITER PHOSPHORUS Routine 10/23/2024 5:27 AM MOVIE WRITER COMPREHENSIVE METABOLIC PANEL Routine 10/23/2024 5:27 AM MOVIE WRITER CBC WITH AUTO DIFFERENTIAL Routine 10/23/2024 5:27 AM MOVIE WRITER POCT GLUCOSE DEVICE Routine 10/23/2024 3 :04 AM MOVIE WRITER POCT GLUCOSE DEVICE Routine 10/22/2024 1 0:42 PM MOVIE WRITER POCT GLUCOSE DEVICE Routine 10/22/2024 8 :42 PM MOVIE WRITER HM DIABETES EYE EXAM Routine 08/13/2024 9:40 [...] Read Routine (OP Routine) 12/05/2021 11:53 AM MOVIE WRITER End stage renal disease (HCC) from Last 3 Months or Most Recently Relevant to Health Maintenance Results * Cardiology Document Scan (12/10/2024 10:59 AM MOVIE WRITER) Anatomical Region Laterality Modality Other us Ripa Hayden Grady MD CV CARDIAC SERVICES PRO CEDURES Final Result * POCT hemoglobin A1c (11/24/2024 10:01 AM MOVIE WRITER) Hemoglobin A1C, POC 4.9 4.0 - 5.6 % Blood 11/24/2024 10:0 1 AM MOVIE WRITER us Berthageno Pinto NP POINT OF CARE TEST ORDERA BLES Final Result * (ABNORMAL) POCT glucose (11/24/2024 10:01 AM MOVIE WRITER) Glucose Blood, POC 131 mg/dL Blood 11/24/2024 10:0 1 AM MOVIE WRITER us Bertha Efe Pinto EMISSIONS TESTING AND REPAIR TECHNICIAN POINT OF CARE TEST ORDERA BLES Final Result * DEVICE CHECK - IN OFFICE (11/05/2024 1:22 PM MOVIE WRITER) Anatomical Region Laterality Modality Other Narrative 11/13/2024 2:43 PM MOVIE WRITER Medtronic Micra AV2 Pacemaker. Dx; Symptomatic Bradycardia, [...] Result * POCT glucose (10/25/2024 12:56 PM MOVIE WRITER) Glucose, POC 74 70 - 199 mg/dL Blood 10/25/2024 12:5 6 PM MOVIE WRITER 10/25/2024 12:56 PM MOVIE WRITER Nabeel Richard Philippe LAB POCT ORDERABLES - DEVICE Final Result Performing Organization Address [facility] de Phone Number NIDIA COTE [address] [facility] [employer] [place] [address] * POCT glucose (10/25/2024 8:10 AM MOVIE WRITER) Glucose, POC 100 70 - 199 mg/dL Blood 10/25/2024 8:10 AM MOVIE WRITER 10/25/2024 8:10 AM MOVIE WRITER Nabeel Richard Philippe [facility] POCT ORDERABLES - DEVICE Final Result Performing Organization Address [facility] [place] Number [place] [address] [address] [facility] [employer] [place] [address] * POCT glucose (10/25/2024 7:43 AM MOVIE WRITER) Glucose, POC 78 70 - 199 mg/dL Blood 10/25/2024 7:43 AM MOVIE WRITER 10/25/2024 7:43 AM MOVIE WRITER Nabeel Richard Philippe [facility] POCT ORDERABLES - DEVICE Final Result Performing Organization Address [facility] [place] Number [place] [address] [address] [facility] [employer] [place] [address] * (ABNORMAL) eGFR (10/25/2024 5:48 AM MOVIE WRITER) eGFR 9(L) >=60 mL/min/1. 73 m2 Comment: [...] last reviewed 2021. Blood 10/25/2024 5:48 AM MOVIE WRITER 10/25/2024 6:03 AM MOVIE WRITER us Raisa Scherer NP LAB BLOOD ORDERABLES Jeaneth mari Result [facility] [address] [place] [address] * (ABNORMAL) CBC without differential (10/25/2024 5:48 AM MOVIE WRITER) Pathologist [facility] WBC 4.6 3.8 - 9.9 K/cumm Hgb 8.3(L) 13.0 - 17.5 g/dL [facility] Hct 28.1(L) 38.9 - 50.3 % [facility] Plt 187 150 - 400 K/cumm [facility] MPV 10.6 9.1 - 12.3 fL [facility] RBC 2.82(L) 4.30 - 5.80 M/cumm [facility] MCV 99.6(H) 81.3 - 96.4 fL [facility] MCH 29.4 27.1 - 33.3 pg [facility] MCHC 29.5(L) 32.3 - 35.7 g/dL [facility] CV 16.3(H) 11.1 - 14.9 % [facility] SD 60.4(H) 35.7 - 48.1 fL [facility] NRBC abs 0.00 0.00 - 0.01 K/cumm [facility] Blood 10/25/2024 5:48 AM MOVIE WRITER 10/25/2024 6:03 AM MOVIE WRITER Raisa Scherer NP LAB BLOOD ORDERAB[place] [address] Department [place] [address] * (ABNORMAL) Basic metabolic panel (10/25/2024 5:48 AM MOVIE WRITER) Sodium 135 135 - 145 mmol/L Potassium, [...] mg/dL [facility] Blood 10/25/2024 5:48 AM MOVIE WRITER 10/25/2024 6:03 AM MOVIE WRITER Raisa G. Torbert EMISSIONS TESTING AND REPAIR TECHNICIAN LAB BLOOD ORDERABLES Jeaneth l Result NIDIA COTE [address] [facility] [employer] [place] [address] * POCT glucose (10/25/2024 2:25 AM MOVIE WRITER) Glucose, POC 81 70 - 199 mg/dL Blood 10/25/2024 2:25 AM MOVIE WRITER 10/25/2024 2:25 AM MOVIE WRITER Nabeel Paez DO LAB POCT ORDERABLES - DEVICE Final Result Performing Organization Address [facility] Co de Phone Number NIDIA COTE [address] [facility] [employer] [place] [address] * POCT glucose (10/24/2024 8:31 PM MOVIE WRITER) Glucose, POC 120 70 - 199 mg/dL Blood 10/24/2024 8:31 PM MOVIE WRITER 10/24/2024 8:31 PM MOVIE WRITER Nabeel Paez DO [facility] POCT ORDERABLES - DEVICE Final Result Performing Organization Address [facility] Co de Phone Number NIDIA COTE [address] [facility] [employer] [place] [address] * POCT glucose (10/24/2024 4:33 PM MOVIE WRITER) Glucose, POC 85 70 - 199 mg/dL Blood 10/24/2024 4:33 PM MOVIE WRITER 10/24/2024 4:33 PM MOVIE WRITER Nabeel Paez LAB POCT ORDERABLES - DEVICE Final Result Performing Organization Address [facility] Co de Phone Number NIDIA COTE [address] [facility] [employer] [place] [address] * POCT glucose (10/24/2024 2:03 PM MOVIE WRITER) Glucose, POC 83 70 - 199 mg/dL Blood 10/24/2024 2:03 PM MOVIE WRITER 10/24/2024 2:03 PM MOVIE WRITER Nabeel Ramos Philippe [facility] POCT ORDERABLES - DEVICE Final Result Performing Organization Address [facility] Co de Phone Number NIDIA COTE [address] [facility] [employer] [place] [address] * POCT glucose (10/24/2024 11:26 AM MOVIE WRITER) Glucose, POC 85 70 - 199 mg/dL Blood 10/24/2024 11:2 6 AM MOVIE WRITER 10/24/2024 11:26 AM MOVIE WRITER Nabeel Richard Philippe [facility] POCT ORDERABLES - DEVICE Final Result Performing Organization Address [facility] de Phone Number NIDIA [address] [place] [address] * POCT glucose (10/24/2024 7:30 AM MOVIE WRITER) Glucose, POC 94 70 - 199 mg/dL Blood 10/24/2024 7:30 AM MOVIE WRITER 10/24/2024 7:30 AM MOVIE WRITER Nabeel Richard Philippe [facility] POCT ORDERABLES - DEVICE Final Result Performing Organization Address [facility] de Phone Number NIDIA KERA [address] [place] [address] * TSH (10/24/2024 5:12 AM MOVIE WRITER) Thyroid Stimulating Hormone 0.48 0.30 - 4.20 mcIUnit/mL Blood 10/24/2024 5:12 AM MOVIE WRITER 10/24/2024 5:23 AM MOVIE WRITER Sherrill Christianson MD LAB BLOOD ORDERABLES Final Result Performing Organization Address City/[facility] [place] [address] [address] Department [place] [address] * (ABNORMAL) eGFR (10/24/2024 4:59 AM MOVIE WRITER) eGFR 13(L) >=60 mL/min/1. 73 m2 Comment: [...] last reviewed 2021. Blood 10/24/2024 4:59 AM MOVIE WRITER 10/24/2024 5:23 AM MOVIE WRITER us Raisa Scherer NP LAB BLOOD ORDERABLES Jeaneth mari Result [facility] [address] Department [place] [address] * (ABNORMAL) CBC without differential (10/24/2024 4:59 AM MOVIE WRITER) WBC 5.1 3.8 - 9.9 K/cumm Hgb 8.9(L) 13.0 - 17.5 g/dL [facility] Hct 29.9(L) 38.9 - 50.3 % [facility] Plt 188 150 - 400 K/cumm [facility] MPV 10.2 9.1 - 12.3 fL [facility] RBC 2.93(L) 4.30 - 5.80 M/cumm [facility] MCV 102.0(H) 81.3 - 96.4 fL [facility] MCH 30.4 27.1 - 33.3 pg [facility] MCHC 29.8(L) 32.3 - 35.7 g/dL [facility] RDW CV 16.8(H) 11.1 - 14.9 % [facility]DW SD 62.6(H) 35.7 - 48.1 fL [facility] NRBC abs 0.00 0.00 - 0.01 K/cumm [facility] Blood 10/24/2024 4:59 AM MOVIE WRITER 10/24/2024 5:20 AM MOVIE WRITER us Raisa Scherer NP LAB BLOOD ORDERABLES Jeaneth mari Result [facility] [address] Department [place] [address] * (ABNORMAL) Basic metabolic panel (10/24/2024 4:59 AM MOVIE WRITER) Sodium 136 135 - 145 mmol/L Potassium, pl 4.2 3.3 - 4.9 mmol/L [facility] Chloride 94(L) 97 - 110 mmol/L [facility] CO2 31 22 - 32 mmol/L [facility] Anion gap 11 2 - 15 mmol/L [facility] BUN 20 6 - 25 mg/dL [facility] Creatinine 4.30(H) 0.80 - 1.30 mg/dL [facility] Glucose 80 70 - 199 mg/dL [facility] [...] 10.3 mg/dL [facility] Blood 10/24/2024 4:59 AM MOVIE WRITER 10/24/2024 5:20 AM MOVIE WRITER Raisa Scherer EMISSIONS TESTING AND REPAIR TECHNICIAN LAB BLOOD ORDERABLES Jeaneth l Result NIDIA COTE [address] [facility] [employer] [place] [address] * POCT glucose (10/24/2024 2:39 AM MOVIE WRITER) Glucose, POC 123 70 - 199 mg/dL Blood 10/24/2024 2:39 AM MOVIE WRITER 10/24/2024 2:39 AM MOVIE WRITER Nabeel Paez DO LAB POCT ORDERABLES - DEVICE Final Result Performing Organization Address [facility] Co de Phone Number ALYSSAALANNAH [address] [facility] [employer] [place] [address] * POCT glucose (10/23/2024 10:25 PM MOVIE WRITER) Glucose, POC 173 70 - 199 mg/dL Blood 10/23/2024 10:2 5 PM MOVIE WRITER 10/23/2024 10:25 PM MOVIE WRITER Nabeel HERRING POCT ORDERABLES - DEVICE Final Result Performing Organization Address [facility] Co de Phone Number ALYSSAALANNAH [address] [place] [address] * POCT glucose (10/23/2024 8:04 PM MOVIE WRITER) Glucose, POC 70 70 - 199 mg/dL Blood 10/23/2024 8:04 PM MOVIE WRITER 10/23/2024 8:04 PM MOVIE WRITER Nabeel Paez DO LAB POCT ORDERABLES - DEVICE Final Result Performing Organization Address [facility] Co de Phone Number AL[facility]SSA[place]ANNA[facility] [address] [facility] [employer] [place] [address] * POCT glucose (10/23/2024 5:42 PM MOVIE WRITER) Glucose, POC 90 70 - 199 mg/dL Blood 10/23/2024 5:42 PM MOVIE WRITER 10/23/2024 5:42 PM MOVIE WRITER Nabeel Paez DO LAB POCT ORDERABLES - DEVICE Final Result Performing Organization Address City/[facility]/ZIP Co de Phone Number NIDIA [address] [address] [place] [address] * Hepatitis panel, acute Blood (10/23/2024 2:45 PM MOVIE WRITER) Hep A IgM Nonreactive Nonreactive Comment: Interpretive Data: If Hep A IgM Ab is reported as Equivocal, a new sample should be drawn in two weeks for testing. Current interpretive data was last revised on 20. Hep B core IgM Nonreactive Nonreactive [facility] Comment: Interpretive Data If HepB Core IgM Ab is reported as Equivocal, a new sample should be drawn in two weeks for testing. Current interpretive data was last revised on 20. Hep C Ab Nonreactive Nonreactive [facility] Comment: Interpretive Data Nonreactive: Antibodies to [...] last revised on 2020. HepBsAg Nonreactive Nonreactive [facility] Blood 10/23/2024 2:45 PM MOVIE WRITER 10/23/2024 2:46 PM MOVIE WRITER Sherrill Christianson MD LAB MICROBIOLOGY - GENERAL ORDERABLES Final Result Performing Organization Address City/[facility]/ZIP Co de Phone Number NIDIA [address] [address] [employer] [place] [address] * Hepatitis B surface antibody (immune status) Blood (10/23/2024 2:45 PM MOVIE WRITER) HBsAb (immune status) Nonreactive Comment: Interpretive Data [...] revised on 20. Blood 10/23/2024 2:45 PM MOVIE WRITER 10/23/2024 2:46 PM MOVIE WRITER Sherrill Christianson MD LAB MICROBIOLOGY - GENERAL ORDERABLES Final Result Performing Organization Address [facility] [place] [address] [address] [employer] [place] [address] * (ABNORMAL) POCT glucose (10/23/2024 12:57 PM MOVIE WRITER) Glucose, POC 69(L) 70 - 199 mg/dL Blood 10/23/2024 12:5 7 PM MOVIE WRITER 10/23/2024 12:57 PM MOVIE WRITER Nabeel Paez DO LAB POCT ORDERABLES - DEVICE Final Result Performing Organization Address City/[facility] [place] Number [place] [address] [address] Department of [employer] [place] [address] * POCT glucose (10/23/2024 7:47 AM MOVIE WRITER) Glucose, POC 81 70 - 199 mg/dL Blood 10/23/2024 7:47 AM MOVIE WRITER 10/23/2024 7:47 AM MOVIE WRITER Sylvester Engel MD LAB POCT ORDERABLES - DEVICE Final Result Performing Organization Address [facility] [place] [address] [address] [place] [address] * (ABNORMAL) eGFR (10/23/2024 5:27 AM MOVIE WRITER) eGFR 11(L) >=60 mL/min/1. 73 m2 Comment: [...] last reviewed 2021. Blood 10/23/2024 5:27 AM MOVIE WRITER 10/23/2024 5:32 AM MOVIE WRITER us Raisa Scherer NP LAB BLOOD ORDERABLES Jeaneth mari Result NIDIA [address] [address] [place] [address] * (ABNORMAL) Differential, auto (10/23/2024 5:27 AM MOVIE WRITER) Neutrophil abs 4.1 1.5 - 6.5 K/cumm Imm gran abs 0.1 0.0 - 0.1 K/cumm [facility] Lymphocyte abs 0.4(L) 0.8 - 3.3 K/cumm [facility] Monocyte abs 0.7 0.2 - 0.8 K[facility] Eosinophil abs 0.1 0.0 - 0.5 K/cumm [facility] Basophil abs 0.0 0.0 - 0.1 K/cumm [facility] Neutrophil pct 76.5 % [facility] Comment: Interpretive Data Percent cell count reference ranges are not reported, since discordance with absolute values may lead to misinterpretation of CBC data. Current Interpretive Data was last revised on 2018. Imm gran pct 1.1 % [facility] Comment: Interpretive Data Percent cell count reference ranges are not reported, since discordance with absolute values may lead to misinterpretation of CBC data. Current Interpretive Data was last revised on 2018. Lymphocyte pct 7.9 % [facility] Comment: Interpretive Data Percent cell count reference ranges are not reported, since discordance with absolute values may lead to misinterpretation of CBC data. Current Interpretive Data was last revised on 2018. Monocyte pct 12.7 % [facility] Comment: Interpretive Data Percent cell count reference ranges are not reported, since discordance with absolute values may lead to misinterpretation of CBC data. Current Interpretive Data was last revised on 2018. Eosinophil pct 1.1 % [facility] Comment: Interpretive Data Percent cell count reference ranges are not reported, since discordance with absolute values may lead to misinterpretation of CBC data. Current Interpretive Data was last revised on 2018. Basophil pct 0.7 % [facility] Comment: Interpretive Data Percent cell count reference ranges are not reported, since discordance with absolute values may lead to misinterpretation of CBC data. Current Interpretive Data was last revised on 2018. Blood 10/23/2024 5:2 7 AM MOVIE WRITER 10/23/2024 5:30 AM MOVIE WRITER us Raisa Scherer [employer]ISSIONS TESTING AND REPAIR TECHNICIAN LAB BLOOD ORDERABLES Jeaneth l Result [facility] [address] [place] [address] * (ABNORMAL) CBC with auto differential (10/23/2024 5:27 AM MOVIE WRITER) WBC 5.3 3.8 - 9.9 K/cumm Hgb 8.8(L) 13.0 - 17.5 g/dL [facility] Hct 28.9(L) 38.9 - 50.3 % [facility] Plt 179 150 - 400 K/cumm [facility] MPV 10.4 9.1 - 12.3 fL [facility] RBC 2.86(L) 4.30 - 5.80 M/cumm [facility] MCV 101.0(H) 81.3 - 96.4 fL [facility] MCH 30.8 27.1 - 33.3 pg [facility] MCHC 30.4(L) 32.3 - 35.7 g/dL [facility] RDW CV 17.2(H) 11.1 - 14.9 % [facility] RDW SD 63.7(H) 35.7 - 48.1 fL [facility] NRBC abs 0.00 0.00 - 0.01 K/cumm [facility] Blood 10/23/2024 5:27 AM MOVIE WRITER 10/23/2024 5:30 AM MOVIE WRITER Raisa Scherer EMISSIONS TESTING AND REPAIR TECHNICIAN LAB BLOOD ORDERABLES Jeaneth l Result Performing Organization Address [facility] Co de Phone Number [facility] [address] [address] [facility] [employer] [place] [address] * Phosphorus (10/23/2024 5:27 AM MOVIE WRITER) Phosphorus, pl 4.5 2.3 - 4.5 mg/dL Blood 10/23/2024 5:27 AM MOVIE WRITER 10/23/2024 5:30 AM MOVIE WRITER Raisa Scherer EMISSIONS TESTING AND REPAIR TECHNICIAN LAB BLOOD ORDERABLES Jeaneth l Result Performing Organization Address City/[facility] Co de Phone Number [facility] [address] [address] [facility] [employer] [place] [address] * Magnesium (10/23/2024 5:27 AM MOVIE WRITER) Magnesium 2.1 1.4 - 2.5 mg/dL Blood 10/23/2024 5:27 AM MOVIE WRITER 10/23/2024 5:30 AM MOVIE WRITER Raisa Scherer EMISSIONS TESTING AND REPAIR TECHNICIAN LAB BLOOD ORDERABLES Jeaneth l Result Performing Organization Address [facility]/[place] [address] [place] [address] * (ABNORMAL) Comprehensive metabolic panel (10/23/2024 5:27 AM MOVIE WRITER) Sodium 137 135 - 145 mmol/L Potassium, [...] Units/L [facility] Blood 10/23/2024 5:27 AM MOVIE WRITER 10/23/2024 5:30 AM MOVIE WRITER Raisa Scherer EMISSIONS TESTING AND REPAIR TECHNICIAN LAB BLOOD ORDERABLES Jeaneth l Result N[facility]IA [place] [address] [address] [employer] [place] [address] * POCT glucose (10/23/2024 3:04 AM MOVIE WRITER) Glucose, POC 84 70 - 199 mg/dL Blood 10/23/2024 3:04 AM MOVIE WRITER 10/23/2024 3:04 AM MOVIE WRITER Sylvester Engel MD LAB POCT ORDERABLES - DEVICE Final Result Performing Organization Address [facility] Co de Phone Number [facility] [place] [address] [address] [employer] [place] [address] * POCT glucose (10/22/2024 10:42 PM MOVIE WRITER) Glucose, POC 101 70 - 199 mg/dL Blood 10/22/2024 10:4 2 PM MOVIE WRITER 10/22/2024 10:42 PM MOVIE WRITER Sylvester Engel MD LAB POCT ORDERABLES - DEVICE Final Result Performing Organization Address [facility] Co de Phone Number N[place]IA [place] [address] [address] [employer] [place] [address] * POCT glucose (10/22/2024 8:42 PM MOVIE WRITER) Glucose, POC 114 70 - 199 mg/dL Blood 10/22/2024 8:42 PM MOVIE WRITER 10/22/2024 8:42 PM MOVIE WRITER Guru Miller MD LAB POCT ORDERABLES - DEVICE Final Result Performing Organization Address [facility] Co de Phone Number [facility]IA [place] [address] [address] [facility] [employer] [place] [address] * (ABNORMAL) DIABETES EYE EXAM (08/13/2024 9:40 AM CDT) Historical Provider HEALTH MAINTENANCE Edited Result - Final * (ABNORMAL) Albumin Creatinine Ratio, Urine (03/10/2024 8:46 AM CDT) Albumin Ur 3,169.5 mg/L Comment: Interpretive Data No reference range established. Current interpretive data was last revised 2019. Creatinine Ur 47.7 mg/dL [facility] Comment: Interpretive Data No reference range established. Current interpretive data was last revised 2019. Albumin Creatinine Ratio, Ur 6,645(H) 1 - 29 mg/g [facility] Urine 03/10/2024 8:46 AM CDT 03/11/2024 9:11 AM CDT us Bertha Pinto NP LAB URINE ORDERABLES Jeaneth mari Result [facility] [address] [address] [place] [address] * (ABNORMAL) Lipid panel (03/03/2024 9:29 AM [...] revised on 2018. Triglycerides 75 <=149 mg/dL [facility] Comment: Interpretive Data Ages < or [...] BLOOD ORDERABLES Jeaneth mari Result [facility] [place] [address] [address] [place] [address] * CT Abdomen Pelvis WO Contrast (12/05/2021 11:53 AM MOVIE WRITER) Anatomical Region Laterality Modality Body N/A Computed Tomogra phy 12/05/2021 12:0 4 PM MOVIE WRITER Impressions 12/05/2021 12:04 PM MOVIE WRITER Bone windows show no suspicious lytic or blastic lesions. IMPRESSION: 1. 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 2. 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 Electronically signed by: Ryan Cameron M.D. Narrative 12/05/2021 12:04 PM MOVIE WRITER EXAMINATION: Computed tomography of the abdomen/pelvis without [...] adeniform shape. There is atrophy of both quechan kidneys. Adjacent fat stranding is likely related [...] adeniform shape. There is atrophy of both quechan kidneys. Adjacent fat stranding is likely related [...] LIFE MEDICARE MEDICARE FOR LIFE Care Teams Wedding Cake Designer Relationship Specialty Start Date End Date Mariza Carrion MD [address] [facility] [address] [place] [address] PCP - General Family Practice 03/05/23 Efren Hoyos MD Referring Physician Ophthalmology 06/16/19 Dank Hicks MD [address] [facility] [address] [place], [place] [id number] Consulting Physician Cardiology 10/11/21
[2024-12-30 20:04] VITALS: BP 137/76; PULSE 76; RESP 16; O2SAT 98
--- NOTE | 2024-12-30 20:14 | PC.NURSE ---
rn report to yohanaiella.
== END 2024-12-30 20:05 ==
LOC: ANHED 19:57
PROVIDERS: Emergency Provider Emergency Medicine; PCP Family Medicine
DX: S09.90XA Unspecified injury of head, initial encounter (principal); G47.30 Sleep apnea, unspecified; E11.9 Type 2 diabetes mellitus without complications; Z79.4 Long term (current) use of insulin; J44.9 Chronic obstructive pulmonary disease, unspecified; D64.9 Anemia, unspecified; I12.0 Hypertensive chronic kidney disease with stage 5 chronic kidney disease or end stage renal disease; E11.22 Type 2 diabetes mellitus with diabetic chronic kidney disease; N18.6 End stage renal disease; Z99.2 Dependence on renal dialysis; Z23 Encounter for immunization; W06.XXXA Fall from bed, initial encounter
CPT/HCPCS: 70450; 70486; 72125; 90471; 90715; 99284

== ENCOUNTER 2025-01-05 09:30 | Inpatient (IN) | payer MEDICARE, OTHER, SELFPAY ==
[2025-01-05] VITALS (32 sets, daily range): BP systolic 126–175; BP diastolic 29–94; PULSE 69–89; RESP 13–26; TEMP 35.5–36.6; O2SAT 95–100; BMI 31.8
--- NOTE | ~2025-01-05 | CT_ITS ---
CTA brain carotid Ordering provider: Akhil Castillo MD History: . left sided weakness . Comparison: 12/30/2024 Technique: CT angiogram head and neck was performed following timed intravenous injection of contrast . Thin slice axial images and reformatted coronal images were obtained. Three dimensional reformatted images of the brain were also obtained using a [employer] workstation. Radiation reduction technique uti lized The dose-length product was 1715.29 mGy-cm. 100 mL Omnipaque 350 was given IV. FINDINGS: HEAD: --ANTERIOR AND MIDDLE CEREBRAL ARTERIES AND BRANCHES: Normal caliber and contour. --INTERNAL CAROTID ARTERIES: Mild atheromatous disease but no significant stenosis. No occlusion. --BASILAR ARTERY AND BRANCHES: Normal caliber and contour. No atheromatous disease. --POSTERIOR CEREBRAL ARTERIES: Normal caliber and contour --POSTERIOR COMMUNICATING ARTERIES: Not visualized which is probably related to congenital absence or small size. --ANEURYSM: None visualized. --BRAIN: Brain atrophy with deep white matter ischemic changes. --BONES AND SUPERFICIAL SOFT TISSUES: Bifid anterior and posterior arch of C1 otherwise normal. --PARANASAL SINUSES AND MASTOIDS: Bilateral maxillary sinus disease more on the right side. Bilateral ethmoid sinus disease. Left nasal septal deviation. NECK: --RIGHT CERVICAL CAROTID SYSTEM: Mild atheromatous disease of the carotid bulb and proximal internal carotid artery without significant stenosis. Percent stenosis per NASCET criteria is 25%. No carotid dissection. Otherwise, no significant atheromatous disease or stenosis of the cervical carotid syste m. --LEFT CERVICAL CAROTID SYSTEM: Mild atheromatous disease of the carotid bulb and proximal internal c arotid artery without significant stenosis. Percent stenosis per NASCET criteria is 10%. No carotid dissection. Otherwise, no significant atheromatous disease or stenosis of the cervical carotid system. --VERTEBRAL ARTERIES: Severe narrowing of the left vertebral artery. Normal caliber and contour. --VISUALIZED AORTIC ARCH AND BRANCHING VESSELS: Mild atheromatous disease but no significant stenosis . --SOFT TISSUES: Bilateral pleural effusion. Bilateral lung groundglass appearance in the lungs which may indicate infection versus atelectasis versus edema. --CERVICAL SPINE: Age appropriate degenerative changes. IMPRESSION: 1. CTA neck. Percent stenosis per NASCET criteria is 25% on the right and 10% on the left. 2. CTA of the head with no occlusion or significant stenosis. 3. 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 Reviewed, dictated and finalized at location A. IMPRESSION: 1. CTA neck. Percent stenosis per NASCET criteria is 25% on the right and 10 % on the left. 2. CTA of the head with no occlusion or significant stenosis. 3. 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
--- NOTE | ~2025-01-05 | XR_ITS ---
XR chest 1V portable Ordering provider: Akhil Castillo MD History: 79 years Male with . SOA . Comparison: December 21, 2024 FINDINGS: MEDIASTINUM: The cardiac silhouette is slightly enlarged. Congestive serina. Postoperative changes in t he mediastinum. LUNGS: No effusions or pneumothorax. Bilateral basal opacification suggestive of pneumonia. Bilateral interstitial thickening suggestive of pneumonitis. Underlying pulmonary edema is not excluded. OTHER: No free air under the diaphragm. IMPRESSION: Bilateral basal pneumonia. Bilateral interstitial thickening suggestive of pneumonitis versus pulmonary edema. Reviewed, dictated and finalized at location A. IMPRESSION: Bilateral basal pneumonia. Bilateral interstitial thickening suggestive of pneumonitis versus pulmonary ed almas.
--- NOTE | ~2025-01-05 | XR_ITS ---
CHEST RADIOGRAPH CLINICAL HISTORY: pneumonia, fluid overload . COMPARISON: 01/05/2025 TECHNIQUE: Single portable view of the chest. FINDINGS Sternal wires and mediastinal clips are identified, the wires are midline and disrupted, but unchange d in configuration. Loop recorder projects to the left of midline. Dense calcifications of the aortic root The remainder of the cardiomediastinal silhouette is otherwise unremarkable. Increased interstitial markings are identified bilaterally, findings suggesting mild pulmonary vascul ar congestion. The lungs are otherwise clear IMPRESSION: Mild pulmonary vascular congestion, without focal infiltrate or effusion. Reviewed, dictated and finalized at location A.
--- NOTE | 2025-01-05 10:07 | PC.NURSE ---
Vascular Access at bedside to attempt IV access.
[2025-01-05 10:18] LABS: Basophils Percent Auto 0.7 % (0.2-1.2); Eosinophils Absolute Auto 0.1 K/mm3 (0-0.3); Eosinophils Percent Auto 1.3 % (0-4.4); Hematocrit 30.1 % (42.0-52.0); Hemoglobin 8.9 g/dL (14.0-18.0); Immature Granulocyte Absolute 0.04 K/mm3 (0.00-0.031); Immature Granulocyte Percent A 0.7 % (0-0.5); Lymphocytes Absolute Auto 0.43 K/mm3 (0.9-3.2); Mean Corpuscular HGB Conc 29.6 g/dl (32-36); Mean Corpuscular Hemoglobin 26.6 pg (26-34); Mean Corpuscular Volume 89.9 fl (80-100); Mean Platelet Volume 10.8 fl (7.4-10.4); Monocytes Absolute Auto 0.6 K/mm3 (0.1-0.6); Neutrophils Percent Auto 81.3 % (45.5-73.1); Platelet Count Result 197 k/mm3 (150-375); Red Blood Count 3.35 M/mm3 (4.6-6.20); White Blood Count 6.1 K/mm3 (4.5-10.0)
[2025-01-05 10:18] LABS: Base Excess ABG -0.8 mEq/l (+/-2.0); Fractional Inspired Oxygen 21 %; Oxygen Content ABG 11.2 %vol (16.0-22.0); PCO2 ABG 46.6 mmHg (35.0-45.0); PO2 ABG 56.9 mmHg (80.0-100.0); PO2 FiO2 Ratio Arterial Blood 2.71 %; Total Hemoglobin 9.5 g/dL (12.0-18.0); pH ABG 7.347 (7.350-7.450)
[2025-01-05 10:25] LABS: Device ROOM AIR; Modified Allen's Test Pass; Oxyhemoglobin 83.8 % THb (90.0-100.0); Site Drawn RIGHT RADIAL
--- NOTE | 2025-01-05 10:30 | PC.NURSE ---
Patient to cat scan
[2025-01-05 10:31] LABS: Alanine Aminotransferase 20 U/L (6-50); Albumin Level 3.7 g/dL (3.5-5.1); Alkaline Phosphatase 77 U/L (38-126); Anion Gap 10 mmol/L (4-12); Aspartate Amino Transferase 16 U/L (17-59); Bilirubin,Total 0.3 mg/dL (0.2-1.3); Blood Urea Nitrogen 44 mg/dL (9-20); Calcium 8.9 mg/dL (8.4-10.2); Carbon Dioxide 30 mmol/L (22-30); Chloride 91 mmol/L (98-107); Estimated Glomerular Filt Rate 10; Glucose 304 mg/dL (65-110); Potassium 4.2 mmol/L (3.4-5.0); Sodium 131 mmol/L (137-145)
[2025-01-05 10:34] LABS: INR 1.2; Partial Thromboplastin Time 31.8 Seconds (22.3-36.8); Prothrombin Time 15.2 Seconds (11.1-14.7)
[2025-01-05 10:39] LABS: Estimated Glomerular Filt Rate 10
[2025-01-05 10:46] LABS: Troponin I 0.088 ng/mL (0.000-0.034)
[2025-01-05 10:47] LABS: Hypochromasia 1+; Platelet Estimate Adequate (Adequate); Schistocytes None Seen
--- NOTE | 2025-01-05 10:58 | ED_ITS ---
HPI - Altered Mental Status General Chief Complaint: Altered Mental Status Stated Complaint: AMS, Weakness Time Seen by Provider: 01/05/25 09:47 History of Present Illness HPI narrative: Patient is a 79-year-old male who presents ER with weakness and confusion. He reports that at 1:00 a.m. he was unable to speak and it lasted for 2 hours. He has also become more weak in his extremities over last few days. He is able to stand up with assistance. He has had multiple falls and has had multiple evaluations the ER. Most recent fall was 2 days ago off the toilet while he is bending over to pull up his pants. No LOC but has abrasions around the right eye. Prior to that he had had a fall out of bed where he had a CT scan ER. Patient is on a baby aspirin no other blood thinners. He has edema in all extremities and around the eyes. Patient was found to be hypoxic and received nasal cannula oxygen which apparently helped his mental state. Related Data Home Medications ?Medication ?Instructions ?Recorded ?Confirmed ?Last Taken ?Type aspirin 81 mg tablet,delayed 81 mg PO DAILY 10/31/21 01/05/25 12/08/24 History release carvedilol 25 mg tablet 25 mg PO BID 10/31/21 01/05/25 12/19/24 History dulaglutide 1.5 mg/0.5 mL 1.5 mg subcut WEEKLY 10/31/21 01/05/25 12/16/24 History subcutaneous pen injector (Trulicity) insulin lispro 100 unit/mL 4 unit subcut .TIDAC 10/31/21 01/05/25 12/19/24 History subcutaneous pen loratadine 10 mg tablet (Claritin) 10 mg PO PRN 10/31/21 01/05/25 12/19/24 History amlodipine 10 mg tablet 10 mg PO DAILY 11/07/23 01/05/25 12/19/24 History insulin glargine 100 unit/mL (3 6 unit subcut DAILY 11/07/23 01/05/25 12/19/24 History mL) subcutaneous pen (Lantus Solostar U-100 Insulin) cinacalcet 90 mg PO DAILY 12/12/23 01/05/25 12/19/24 History atorvastatin 20 mg tablet 20 mg PO DAILY 12/21/24 01/05/25 12/19/24 History Allergies Allergy/AdvReac Type Severity Reaction Status Date / Time No Known Allergies Allergy Verified 12/20/24 08:13 Review of Systems 2 Review of Systems: All systems reviewed & are unremarkable except as noted in HPI and below Constitutional: Constitutional: Reports no additional constitutional complaints Cardiovascular: Cardiovascular: Reports no additional cardiovascular complaints Respiratory: Respiratory: Reports no additional respiratory complaints Gastrointestinal: Gastrointestinal: Reports no additional gastrointestinal complaints Musculoskeletal: Musculoskeletal: Reports no additional musculoskeletal complaints [facility] Past Medical History Medical History Sinus pause (~09/2024) Bilateral shoulder pain Obstructive sleep apnea Insulin dependent type 2 diabetes mellitus Chronic obstructive pulmonary disease Coronary artery disease Benign prostatic hyperplasia Peripheral vascular disease (~03/2023) Internal hemorrhoid, bleeding Anemia End-stage renal disease on hemodialysis History of colon polyps Environmental allergies Vitamin D deficiency Dyslipidemia Essential (primary) hypertension Surgical History Surgical History History of cardiac pacemaker (~10/2024) due to symptomatic sinus pauses causing syncope History of hemorrhoidectomy Anorectal evaluation under anesthesia and excisional hemorrhoidectomy x3 12/14/23 SAW S/P peripheral artery angioplasty (~03/2023) status post balloon angioplasty of bilateral common and external iliac arteries status post left iliofemoral endarterectomy Arteriovenous fistula of left upper extremity (~2017) History of appendectomy (~1962) History of coronary artery bypass graft (~2013) Family History Family History Mother Diabetes mellitus Acute myocardial infarction Family history of congestive heart failure Father Hypertension Social History Social History Social History: Surrogate medical decision maker: Wilian Morrissey, sibling. Code status: Full code. Caffeine- daily Smoking packs per day: 10 Smoking cigarettes per day: 200.0 Years smoked: 10 Smoking pack-years: 100.00 Smoking status: Former smoker Second hand tobacco smoke exposure: No Alcohol intake: never Drinks per week: 1 Alcohol use details: Maybe 2-3 per year Substance use: never Substance use type: does not use Do You Feel Safe in your Home?: Yes Lack of Transportation: No Lack of Food: Never True Current Housing: I Have Housing Concerned About Future Housing: No Difficulty Paying Gas/Electric Bills: No Difficulty Paying for Meds: No Currently Unemployed: No Education: Associate Degree Difficulty w/ Childcare or Family Care: No Living arrangements: with family Occupation/Education: retired Additional occupation/education comments: Retired from the [employer]. Spiritual care concerns: No Agree to blood products: Yes Exam 2 Narrative: GENERAL: Chronically ill-appearing, obese, and in no acute distress. HEAD: Normocephalic, atraumatic. EYES: PERRL and EOMI. Periorbital edema bilaterally. Right infraorbital region with abrasion. ENT: Mucous membranes moist. CHEST: Clear to auscultation. No respiratory distress. HEART: Regular rate and rhythm. Normal peripheral pulses. ABDOMEN: Soft, nontender, nondistended, normal active bowel sounds. EXTREMITIES: 2+ edema all extremities. Dialysis fistula LUE, bruising RUE. Can only lift left arm off the bed approximately 12 in before falls back down. Right upper extremity has no drift. He is able to pull his right lower extremity up towards his chest very slowly but he will never leaves bed. Patient is weaker on the left side when trying to pull his leg up. He is not able to lift his heel off the bed on either side for drift testing. SKIN: Warm, dry, no rash. NEURO: Alert and oriented x3. No dysarthria or expressive aphasia. PSYCH: Normal mood and affect. Course Course Emergency Course: 1108: Suspect patient's symptoms are related to deconditioning and hypoxia but stroke evaluation ordered. 1312: Patient seems more tired and will repeat ABG as he is now on nasal cannula oxygen and may be becoming hypercapnic. He is moving all extremities well at this point. 1500: Admit to hospitalist service. IV antibiotics for pneumonia. Nephrology consulted for dialysis and he will get a treatment today. Typically dialyzes Sunday//Sunday. Patient tolerating BiPAP Vital Signs Vital signs: Vital Signs Temperature 97.9 F 01/05/25 09:29 Pulse Rate 79 01/05/25 09:29 Respiratory Rate 13 01/05/25 09:29 Blood Pressure 162/72 H 01/05/25 09:29 Pulse Oximetry 96 01/05/25 09:29 Oxygen Delivery Room Air 01/05/25 09:29 Temperature 95.9 F L 01/05/25 19:09 Pulse Rate 86 01/05/25 19:09 Respiratory Rate 22 H 01/05/25 19:09 Blood Pressure 152/73 H 01/05/25 19:09 Pulse Oximetry 100 01/05/25 19:09 Oxygen Delivery BiPAP 01/05/25 18:43 Oxygen Flow Rate 2 01/05/25 11:47 Fraction of Inspired Oxygen 24 01/05/25 15:05 MDM - Altered Mental Status Lab Data 01/05/25 10:13 01/05/25 10:33 Labs: Lab Results 01/05/25 01/05/25 01/05/25 Range/Units 10:13 10:33 13:15 WBC 6.1 (4.5-10.0) K/mm3 RBC 3.35 L (4.6-6.20) M/mm3 Hgb 8.9 L (14.0-18.0) g/dL Hct 30.1 L (42.0-52.0) % MCV 89.9 (80-100) fl MCH 26.6 (26-34) pg MCHC 29.6 L (32-36) g/dl RDW 19.0 H (11.5-14.5) % Plt Count 197 (150-375) k/mm3 MPV 10.8 H (7.4-10.4) fl Immature Gran % (Auto) 0.7 H (0-0.5) % Neut % (Auto) 81.3 H (45.5-73.1) % Lymph % (Auto) 7.0 L (18.3-44.2) % [place] % (Auto) 9.0 H (2.6-8.5) % Eos % (Auto) 1.3 (0-4.4) % Baso % (Auto) 0.7 (0.2-1.2) % Lymph # (Auto) 0.43 L (0.9-3.2) K/mm3 [place] # (Auto) 0.6 (0.1-0.6) K/mm3 Eos # (Auto) 0.1 (0-0.3) K/mm3 Baso # (Auto) 0.0 (0.0-0.1) K/mm3 Abs Immat Gran (auto) 0.04 H (0.00-0.031) K/mm3 Absolute Neuts (auto) 5.0 (1.3-6.7) K/mm3 Absolute Nucleated RBC 0.000 (0.0-0.012) K/mm3 Band Neutrophils % Not Reportable Nucleated RBC % 0.0 (0.0-0.2) % Platelet Estimate Adequate (Adequate) Hypochromasia 1+ Schistocytes None seen PT 15.2 H (11.1-14.7) Seconds INR 1.2 APTT 31.8 (22.3-36.8) Seconds Methemoglobin 0.3 (0-1.5) %THb Sodium 131 L (137-145) mmol/L Potassium 4.2 (3.4-5.0) mmol/L Chloride 91 L (98-107) mmol/L Carbon Dioxide 30 (22-30) mmol/L Anion Gap 10 (4-12) mmol/L BUN 44 H D (9-20) mg/dL Creatinine 5.57 H 5.80 H (0.7-1.3) mg/dL Estim Creat Clear Calc Not Reportable Not Reportable Estimated GFR 10 L 10 L (59 - ) Glucose 304 H (65-110) mg/dL Calcium 8.9 (8.4-10.2) mg/dL Total Bilirubin 0.3 (0.2-1.3) mg/dL AST 16 L (17-59) U/L ALT 20 (6-50) U/L Alkaline Phosphatase 77 (38-126) U/L Troponin I 0.088 H* (0.000-0.034) ng/mL Total Protein 6.0 L (6.3-8.2) g/dL Albumin 3.7 (3.5-5.1) g/dL Influenza A (RT-PCR) (Negative) Influenza B (RT-PCR) (Negative) RSV (RT-PCR) (Negative) SARS-CoV-2 RNA (RT-PCR) (Negative) 01/05/25 Range/Units 13:50 WBC (4.5-10.0) K/mm3 RBC (4.6-6.20) M/mm3 Hgb (14.0-18.0) g/dL Hct (42.0-52.0) % MCV (80-100) fl MCH (26-34) pg MCHC (32-36) g/dl RDW (11.5-14.5) % Plt Count (150-375) k/mm3 MPV (7.4-10.4) fl Immature Gran % (Auto) (0-0.5) % Neut % (Auto) (45.5-73.1) % Lymph % (Auto) (18.3-44.2) % [place] % (Auto) (2.6-8.5) % Eos % (Auto) (0-4.4) % Baso % (Auto) (0.2-1.2) % Lymph # (Auto) (0.9-3.2) K/mm3 [place] # (Auto) (0.1-0.6) K/mm3 Eos # (Auto) (0-0.3) K/mm3 Baso # (Auto) (0.0-0.1) K/mm3 Abs Immat Gran (auto) (0.00-0.031) K/mm3 Absolute Neuts (auto) (1.3-6.7) K/mm3 Absolute Nucleated RBC (0.0-0.012) K/mm3 Band Neutrophils % Nucleated RBC % (0.0-0.2) % Platelet Estimate (Adequate) Hypochromasia Schistocytes PT (11.1-14.7) Seconds INR APTT (22.3-36.8) Seconds Methemoglobin (0-1.5) %THb Sodium (137-145) mmol/L Potassium (3.4-5.0) mmol/L Chloride (98-107) mmol/L Carbon Dioxide (22-30) mmol/L Anion Gap (4-12) mmol/L BUN (9-20) mg/dL Creatinine (0.7-1.3) mg/dL Estim Creat Clear Calc Estimated GFR (59 - ) Glucose (65-110) mg/dL Calcium (8.4-10.2) mg/dL Total Bilirubin (0.2-1.3) mg/dL AST (17-59) U/L ALT (6-50) U/L Alkaline Phosphatase (38-126) U/L Troponin I (0.000-0.034) ng/mL Total Protein (6.3-8.2) g/dL Albumin (3.5-5.1) g/dL Influenza A (RT-PCR) Negative (Negative) Influenza B (RT-PCR) Negative (Negative) RSV (RT-PCR) Negative (Negative) SARS-CoV-2 RNA (RT-PCR) Negative (Negative) ABG Data ABG results: 01/05/25 01/05/25 10:12 13:15 Puncture Site Right radial Right radial ABG pH 7.347 L 7.322 L ABG pCO2 46.6 H 54.8 H ABG pO2 56.9 L 78.0 L ABG PO2/FiO2 Ratio 2.71 2.79 ABG HCO3 25.0 27.7 H ABG O2 Saturation 88.0 L 94.4 L ABG O2 Content 11.2 L 12.2 L ABG Base Excess -0.8 1.1 A-a Gradient 37.0 57.0 Oxyhemoglobin 83.8 L* 91.4 Carboxyhemoglobin 2.4 H Reduced Hemoglobin 5.9 H Total Hemoglobin 9.5 L 9.4 L O2 Delivery Device Room air Nasal cannula O2 Liters/Min Not Reportable 2.0 FiO2 21 28 Imaging Data Radiologist's impression: ITS Impressions Chest X-Ray 01/05/25 10:35 IMPRESSION: Bilateral basal pneumonia. Bilateral interstitial thickening suggestive of pneumonitis versus pulmonary edema. Head/Neck CTA 01/05/25 10:49 IMPRESSION: 1. CTA neck. Percent stenosis per NASCET criteria is 25% on the right and 10% on the left. 2. CTA of the head with no occlusion or significant stenosis. 3. 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 Critical Care Time Critical Care Time Critical Care Time: Yes Total Critical Care Time: 35 Discharge Plan Discharge Clinical Impression: Pneumonia, Acute hypercapnic respiratory failure, Acute metabolic encephalopathy, Anasarca Patient Disposition: Still a Patient Condition: Stable
--- OUTSIDE RECORDS SUMMARY | 2025-01-05 11:02 | XMS_ITS | Encounter Summary ---
Author Organization [facility] Address [address] [place] [address] Care Team Providers Care Interpreter For The Deaf Name Role Phone Mariza Carrion MD Primary Care Provider Encounter Details Date Type Department Care Team (Late Contact Info) Description 06/03/2018 [facility] Out[facility] Visit [facility] [address] [place] [address] [place] [address] [facility] [address] [place] [id number] Social History Tobacco Use Types Packs/Day [...] Info) Description 03/23/2025 8:00 AM CDT Appointment [facility] [id number] [facility], [address] [place], [place] [id number] [place] [address] [facility] [address] [place] [phone] documented as of this encounter Visit Diagnoses Not on filedocumented in this encounter Care Teams Interpreter For The Deaf Relationship Specialty Start Date End Date Mariza Carrion MD [address] [place] [id number] PCP - General Family Medicine 08/26/18 documented as of this encounter
--- OUTSIDE RECORDS SUMMARY | 2025-01-05 11:02 | XMS_ITS ---
Author Organization [facility] Address [facility] [place] [address] Care Team Providers Care Bus Mechanic Name Role Phone Efren Hoyos MD Unavailable Dank Hicks MD Unavailable [phone] Mariza Carrion MD Primary Care Provider Dialysis Access Sites Type Status Location Placement Date Removal Da te AV fistula Active Left Upper Arm - Anterior AV fistula Inactive 10/23/2024 Procedures Procedure Name Priority Date/Time Associated Diagnosis Comments CARDIOLOGY DOCUMENT SCAN Routine 12/10/2024 10:59 AM INTERACTIVE GRAPHIC DESIGNER POCT GLUCOSE Routine 11/24/2024 10:01 AM INTERACTIVE GRAPHIC DESIGNER Type 2 diabetes mellitus with hyperglycemia, with long-term current use of insulin ([facility]) POCT HEMOGLOBIN A1C Routine 11/24/2024 1 0:01 AM INTERACTIVE GRAPHIC DESIGNER Type 2 diabetes mellitus with hyperglycemia, with long-term current use of insulin ([facility]) DEVICE CHECK - IN OFFICE Routine 11/05/2024 1:22 PM INTERACTIVE GRAPHIC DESIGNER Cardiac pacemaker in situ Asystole (HCC) Syncope and collapse Symptomatic bradycardia POCT GLUCOSE DEVICE Routine 10/25/2024 1 2:56 PM INTERACTIVE GRAPHIC DESIGNER POCT GLUCOSE DEVICE Routine 10/25/2024 8 :10 AM INTERACTIVE GRAPHIC DESIGNER POCT GLUCOSE DEVICE Routine 10/25/2024 7 :43 AM INTERACTIVE GRAPHIC DESIGNER EGFR Routine 10/25/2024 5:48 AM INTERACTIVE GRAPHIC DESIGNER BASIC METABOLIC PANEL Routine 10/25/2024 5:48 AM INTERACTIVE GRAPHIC DESIGNER CBC WITHOUT DIFFERENTIAL Routine 10/25/2024 5:48 AM INTERACTIVE GRAPHIC DESIGNER POCT GLUCOSE DEVICE Routine 10/25/2024 2 :25 AM INTERACTIVE GRAPHIC DESIGNER POCT GLUCOSE DEVICE Routine 10/24/2024 8 :31 PM INTERACTIVE GRAPHIC DESIGNER POCT GLUCOSE DEVICE Routine 10/24/2024 4 :33 PM INTERACTIVE GRAPHIC DESIGNER POCT GLUCOSE DEVICE Routine 10/24/2024 2 :03 PM INTERACTIVE GRAPHIC DESIGNER LEADLESS, SINGLE CHAMBER PACEMAKER (PPM) INSERTION Routine 10/24/2024 1:36 PM INTERACTIVE GRAPHIC DESIGNER Syncope and collapse POCT GLUCOSE DEVICE Routine 10/24/2024 1 1:26 AM INTERACTIVE GRAPHIC DESIGNER POCT GLUCOSE DEVICE Routine 10/24/2024 7 :30 AM INTERACTIVE GRAPHIC DESIGNER TSH Routine 10/24/2024 5:12 AM INTERACTIVE GRAPHIC DESIGNER EGFR Routine 10/24/2024 4:59 AM INTERACTIVE GRAPHIC DESIGNER BASIC METABOLIC PANEL Routine 10/24/2024 4:59 AM INTERACTIVE GRAPHIC DESIGNER CBC WITHOUT DIFFERENTIAL Routine 10/24/2024 4:59 AM INTERACTIVE GRAPHIC DESIGNER POCT GLUCOSE DEVICE Routine 10/24/2024 2 :39 AM INTERACTIVE GRAPHIC DESIGNER POCT GLUCOSE DEVICE Routine 10/23/2024 1 0:25 PM INTERACTIVE GRAPHIC DESIGNER POCT GLUCOSE DEVICE Routine 10/23/2024 8 :04 PM INTERACTIVE GRAPHIC DESIGNER POCT GLUCOSE DEVICE Routine 10/23/2024 5 :42 PM INTERACTIVE GRAPHIC DESIGNER HEPATITIS B SURFACE ANTIBODY (IMMUNE STATUS) Routine 10/23/2024 2:45 PM INTERACTIVE GRAPHIC DESIGNER HEPATITIS PANEL, ACUTE Routine 10/23/2024 2:45 PM INTERACTIVE GRAPHIC DESIGNER POCT GLUCOSE DEVICE Routine 10/23/2024 1 2:57 PM INTERACTIVE GRAPHIC DESIGNER HEMODIALYSIS Routine 10/23/2024 9:13 AM INTERACTIVE GRAPHIC DESIGNER POCT GLUCOSE DEVICE Routine 10/23/2024 7 :47 AM INTERACTIVE GRAPHIC DESIGNER EGFR Routine 10/23/2024 5:27 AM INTERACTIVE GRAPHIC DESIGNER DIFFERENTIAL AUTO Routine 10/23/2024 5:2 7 AM INTERACTIVE GRAPHIC DESIGNER MAGNESIUM Routine 10/23/2024 5:27 AM INTERACTIVE GRAPHIC DESIGNER PHOSPHORUS Routine 10/23/2024 5:27 AM INTERACTIVE GRAPHIC DESIGNER COMPREHENSIVE METABOLIC PANEL Routine 10/23/2024 5:27 AM INTERACTIVE GRAPHIC DESIGNER CBC WITH AUTO DIFFERENTIAL Routine 10/23/2024 5:27 AM INTERACTIVE GRAPHIC DESIGNER POCT GLUCOSE DEVICE Routine 10/23/2024 3 :04 AM INTERACTIVE GRAPHIC DESIGNER POCT GLUCOSE DEVICE Routine 10/22/2024 1 0:42 PM INTERACTIVE GRAPHIC DESIGNER POCT GLUCOSE DEVICE Routine 10/22/2024 8 :42 PM INTERACTIVE GRAPHIC DESIGNER HM DIABETES EYE EXAM Routine 08/13/2024 9:40 [...] Read Routine (OP Routine) 12/05/2021 11:53 AM INTERACTIVE GRAPHIC DESIGNER End stage renal disease (HCC) from Last [...] long-term current use of insulin ([facility]) Use to test glucose 5 times daily 450 each 2 04/03/20 18 Active lancets (freestyle) 28 gauge miscIndications:T ype 2 diabetes mellitus with hyperglycemia, with long-term current use of insulin ([facility]) Use to test glucose 5 [...] long-term current use of insulin ([facility]) Change sensor every 14 days [...] long-term current use of insulin ([facility]) Use pads 5 times daily [...] long-term current use of insulin ([facility]) Inject 0.5ML(1.5MG total) under the [...] long-term current use of insulin ([facility]) Use to inject insulin 4x/day [...] 12/09/2019 Assessment & Plan (09/03/2023 9:28 AM INTERACTIVE GRAPHIC DESIGNER): Chronic problem. HD [facility] in [place]: //Saturdays. LUE fistula. Assessment & Plan (03/05/2023 9:59 AM CDT): Chronic problem. HD [facility] in [place]: //Saturdays. LUE fistula. ESRD on dialysis 05/22/2019 Hyperlipidemia associated with type 2 diabetes fouzia victoria 05/22/2019 Assessment & Plan (11/24/2024 10:10 AM INTERACTIVE GRAPHIC DESIGNER): Chronic problem. Controlled on current Atorvastatin 20mg. Last lipid panel: 03/03/24 LDL=33, TG=75. Assessment & Plan (03/03/2024 8:45 AM CDT): Chronic problem. Controlled on current Atorvastatin 20mg. Last lipid panel: 03/05/23 LDL=57, WE=560. Will update labs today. Does not mychart. Verified phone #/address to contact re: results. Assessment & Plan (09/03/2023 9:28 AM INTERACTIVE GRAPHIC DESIGNER): Chronic problem. Controlled on current Atorvastatin 20mg. Last lipid panel: 03/05/23 LDL=57, JM=910. Assessment & Plan (03/05/2023 9:53 AM CDT): Chronic problem. Controlled on current Atorvastatin 20mg. Last lipid panel: 12/05/21 LDL=36, TE=604. Will update labs today. Verified phone #/address to contact re: results. Assessment & Plan (11/02/2022 2:47 PM INTERACTIVE GRAPHIC DESIGNER): Chronic, well controlled Low fat Low cholesterol [...] Lipitor Assessment & Plan (09/07/2020 2:26 PM INTERACTIVE GRAPHIC DESIGNER): Goal of treatment , LDL cholesterol less [...] panel Assessment & Plan (12/09/2019 2:03 PM INTERACTIVE GRAPHIC DESIGNER): Very high TG Add Johncepa Assessment & [...] statin therapy Coronary artery disease invo lving [place] coronary artery of [place] heart without angina pectoris 10/04/2017 Hx of CABG 10/04/2017 Class 2 severe obesity due t o excess calories with serious comorbidity and body mass index (BMI) of 38.0 to 38.9 in adult 05/22/2017 Assessment & Plan (10/24/2018 12:58 PM INTERACTIVE GRAPHIC DESIGNER): Making progress with diet efforts. Continue Assessment & Plan (02/08/2018 11:01 AM CDT): Importance of following diet and exercising discussed. Hypertension associated with diabetes 05/22/2017 Assessment & Plan (11/24/2024 10:11 AM INTERACTIVE GRAPHIC DESIGNER): Chronic problem. Controlled on current losartan 100mg daily, amlodipine 10mg daily Assessment & Plan (03/03/2024 8:45 AM CDT): Chronic problem. BP elevated upon arrival. Controlled on current Carvedilol 25mg bid, losartan 100mg daily. No changes at this time. Will update labs today. Does not mychart. Verified phone #/address to contact re: results. Assessment & Plan (09/03/2023 9:28 AM INTERACTIVE GRAPHIC DESIGNER): Chronic problem. BP elevated upon arrival. Controlled [...] renal Assessment & Plan (10/24/2018 12:57 PM INTERACTIVE GRAPHIC DESIGNER): Controlled. Continue current medication plan and follow up with cardiology Assessment & Plan (06/18/2018 2:30 PM CDT): BP controlled on current medication plan. Continue follow up with nephrology Assessment & Plan (02/08/2018 11:00 AM CDT): Continue same medication Assessment & Plan (12/11/2017 10:24 AM INTERACTIVE GRAPHIC DESIGNER): Goal blood pressure is less than 140/85 [...] mellitus Assessment & Plan (11/24/2024 10:16 AM INTERACTIVE GRAPHIC DESIGNER): Chronic problem, controlled on current regimen. A1c [...] daily for skin breakdown and infection (sees software asset manager regularly). Assessment & Plan (03/03/2024 9:19 AM [...] daily for skin breakdown and infection (sees software asset manager regularly). Assessment & Plan (09/03/2023 9:27 AM INTERACTIVE GRAPHIC DESIGNER): Chronic problem, controlled on current regimen. A1c [...] daily for skin breakdown and infection (sees software asset manager regularly). Assessment & Plan (03/05/2023 10:13 AM CDT): Chronic problem, controlled on current regimen. Current medications: Trulicity 1.5mg weekly Lantus 6 units every morning Humalog 4 units before meals For sugars over 160: take 6 units For sugars over 200: take 8 units Seen by [facility] every 4-5 mos; letter sent to get [...] daily for skin breakdown and infection (sees software asset manager regularly). Will update labs today. Verified phone #/address to contact re: results. Assessment & Plan (11/02/2022 2:43 PM INTERACTIVE GRAPHIC DESIGNER): Well controlled, with risk of hypoglycemia Insuli [...] Ross Assessment & Plan (09/07/2020 2:26 PM INTERACTIVE GRAPHIC DESIGNER): Hba1c was Lab Results Component Value Date [...] Trulicity. Assessment & Plan (12/09/2019 2:03 PM INTERACTIVE GRAPHIC DESIGNER): Your Hba1c today was: Lab Results Component Value Date HGBA1C 9.3 12/09/2019 meaning a 3 month average sugar of : 224 Your goal hba1c is under 7.0 to prevent halfway diabetes complications ( eye , kidney and [...] hypoglycemia. Assessment & Plan (10/24/2018 1:00 PM INTERACTIVE GRAPHIC DESIGNER): Stable BG pattern 100-140 reported since last adjustment to plan. No change today. BG goals reviewed. Advised to lower Lantus by 2 units if FBG are < 100 x 2 days/wk. For planned activity, reduce Humalog dose by 1/2 at preceding meal. Assessment & Plan (09/19/2018 11:11 AM INTERACTIVE GRAPHIC DESIGNER): Your Hba1c today was: Lab Results Component Value Date HGBA1C 5.1 09/19/2018 meaning a 3 month average sugar of : 81 Your goal hba1c is under 7.0 to prevent halfway diabetes complications ( eye , kidney and [...] time. Assessment & Plan (12/11/2017 10:47 AM INTERACTIVE GRAPHIC DESIGNER): Hba1c was .5.4 Today, 1800 calorie, consistent [...] 0.6 oz pur e alcohol) [facility] Utilities Answer Date Recorded In the past 12 months has [employer], [employer], or water [employer] threatened to shut off services in your [...] How often do you attend chur or judaism services? Never 10/23/2024 Do you belong to any clubs o r organizations such as jain groups, unions, fraternal or athletic groups, or [...] any time in the past 12 m [facility], were you homeless [...] on file Legal Sex Male 7:27 PM INTERACTIVE GRAPHIC DESIGNER Gender Identity Not on file Sexual Orientation Not on file Last Filed Vital Signs Vital Sign Reading Time Taken Comments Blood Pressure 102/58 11/24/2024 9:58 AM INTERACTIVE GRAPHIC DESIGNER Pulse 75 11/24/2024 9:58 AM INTERACTIVE GRAPHIC DESIGNER Temperature 36.3 C (97.3 F) 10/25/2024 2:15 PM INTERACTIVE GRAPHIC DESIGNER Respiratory Rate 20 11/24/2024 9:58 AM INTERACTIVE GRAPHIC DESIGNER Oxygen Saturation 100% 10/25/2024 1:15 PM INTERACTIVE GRAPHIC DESIGNER Inhaled Oxygen Concentration - - Weight 91.3 kg (201 lb 4.5 oz) 10/22/2024 8:29 P M INTERACTIVE GRAPHIC DESIGNER Height 170.2 cm (5' 7.01 ) 11/24/2024 9:58 AM CS T Body Mass Index 31.52 10/22/2024 8:29 PM INTERACTIVE GRAPHIC DESIGNER Results * Cardiology Document Scan (12/10/2024 10:59 AM INTERACTIVE GRAPHIC DESIGNER) Anatomical Region Laterality Modality Other us Curt Grady MD CV CARDIAC SERVICES PRO CEDURES Final Result * POCT hemoglobin A1c (11/24/2024 10:01 AM INTERACTIVE GRAPHIC DESIGNER) Hemoglobin A1C, POC 4.9 4.0 - 5.6 % Blood 11/24/2024 10:0 1 AM INTERACTIVE GRAPHIC DESIGNER us Berthageno Pinto ZOOLOGY PROFESSOR POINT OF CARE TEST ORDERA BLES Final Result * (ABNORMAL) POCT glucose (11/24/2024 10:01 AM INTERACTIVE GRAPHIC DESIGNER) Glucose Blood, POC 131 mg/dL Blood 11/24/2024 10:0 1 AM INTERACTIVE GRAPHIC DESIGNER us Berthageno Pinto ZOOLOGY PROFESSOR POINT OF CARE TEST ORDERA BLES Final Result * DEVICE CHECK - IN OFFICE (11/05/2024 1:22 PM INTERACTIVE GRAPHIC DESIGNER) Anatomical Region Laterality Modality Other Narrative 11/13/2024 2:43 PM INTERACTIVE GRAPHIC DESIGNER Medtronic Micra AV2 Pacemaker. Dx; Symptomatic Bradycardia, [...] Result * POCT glucose (10/25/2024 12:56 PM INTERACTIVE GRAPHIC DESIGNER) Glucose, POC 74 70 - 199 mg/dL Blood 10/25/2024 12:5 6 PM INTERACTIVE GRAPHIC DESIGNER 10/25/2024 12:56 PM INTERACTIVE GRAPHIC DESIGNER Result [facility] Richard Paez [facility] POCT ORDERABLES - DEVICE Final Result Performing Organization Address [facility] de Phone Number [facility] [address] [address] * POCT glucose (10/25/2024 8:10 AM INTERACTIVE GRAPHIC DESIGNER) Glucose, POC 100 70 - 199 mg/dL Blood 10/25/2024 8:10 AM INTERACTIVE GRAPHIC DESIGNER 10/25/2024 8:10 AM INTERACTIVE GRAPHIC DESIGNER Nabeel Paez [facility] POCT ORDERABLES - DEVICE Final Result Performing Organization Address [facility] Co de Phone [place] [place] [address] [place] [address] * POCT glucose (10/25/2024 7:43 AM INTERACTIVE GRAPHIC DESIGNER) Glucose, POC 78 70 - 199 mg/dL Blood 10/25/2024 7:43 AM INTERACTIVE GRAPHIC DESIGNER 10/25/2024 7:43 AM INTERACTIVE GRAPHIC DESIGNER Nabeel Paez DO LAB POCT ORDERABLES - DEVICE Final Result Performing Organization Address [facility] Co de Phone Number N[facility]IA [facility] [address] Department [place] [address] * (ABNORMAL) eGFR (10/25/2024 5:48 AM INTERACTIVE GRAPHIC DESIGNER) eGFR 9(L) >=60 mL/min/1. 73 m2 Comment: [...] last reviewed 2021. Blood 10/25/2024 5:48 AM INTERACTIVE GRAPHIC DESIGNER 10/25/2024 6:03 AM INTERACTIVE GRAPHIC DESIGNER Raisa Scherer ZOOLOGY PROFESSOR LAB BLOOD ORDERABLES Jeaneth l Result Performing Organization Address City/[facility]/ZIP Co de Phone Number [facility] [place] [address] Department of Laboratories [place], [place] [id number] * (ABNORMAL) CBC without differential (10/25/2024 5:48 AM INTERACTIVE GRAPHIC DESIGNER) WBC 4.6 3.8 - 9.9 K/cumm Hgb 8.3(L) 13.0 - 17.5 g/dL [facility] Hct 28.1(L) 38.9 - 50.3 % [facility] Plt 187 150 - 400 K/cumm [facility] MPV 10.6 9.1 - 12.3 fL [facility] RBC 2.82(L) 4.30 - 5.80 M/cumm [facility] MCV 99.6(H) 81.3 - 96.4 fL [facility] MCH 29.4 27.1 - 33.3 pg [facility] MCHC 29.5(L) 32.3 - 35.7 g/dL [facility] RDW CV 16.3(H) 11.1 - 14.9 % [facility] RDW SD 60.4(H) 35.7 - 48.1 fL [facility] NRBC abs 0.00 0.00 - 0.01 K/cumm [facility] Blood 10/25/2024 5:48 AM INTERACTIVE GRAPHIC DESIGNER 10/25/2024 6:03 AM INTERACTIVE GRAPHIC DESIGNER us Raisa Scherer NP LAB BLOOD ORDERABLES Jeaneth l Result [facility] [address] Department [place] [address] * (ABNORMAL) Basic metabolic panel (10/25/2024 5:48 AM INTERACTIVE GRAPHIC DESIGNER) Sodium 135 135 - 145 mmol/L Potassium, pl 4.3 3.3 - 4.9 mmol/L [facility] Chloride 93(L) 97 - 110 mmol/L [facility] CO2 27 22 - 32 mmol/L [facility] Anion gap 15 2 - 15 mmol/L [facility] BUN 30(H) 6 - 25 mg/dL [facility] Creatinine 5.94(H) 0.80 - 1.30 mg/dL [facility] Glucose 76 70 - 199 mg/dL [facility] Comment: Interpretive Data Fasting glucose >/= [...] 2022. Calcium 8.8 8.5 - 10.3 mg/dL [facility] Blood 10/25/2024 5:48 AM INTERACTIVE GRAPHIC DESIGNER 10/25/2024 6:03 AM INTERACTIVE GRAPHIC DESIGNER Raisa Scherer ZOOLOGY PROFESSOR LAB BLOOD ORDERABLES Jeaneth l Result Performing Organization Address [facility] Co de Phone Number ALYSSAALANNAH [address] [facility] [employer] [place] [address] * POCT glucose (10/25/2024 2:25 AM INTERACTIVE GRAPHIC DESIGNER) Glucose, POC 81 70 - 199 mg/dL Blood 10/25/2024 2:25 AM INTERACTIVE GRAPHIC DESIGNER 10/25/2024 2:25 AM INTERACTIVE GRAPHIC DESIGNER Nabeel Paez DO [facility] POCT ORDERABLES - DEVICE Final Result Performing Organization Address [facility] de Phone Number [facility] [address] [facility] [place] [place] [address] * POCT glucose (10/24/2024 8:31 PM INTERACTIVE GRAPHIC DESIGNER) Glucose, POC 120 70 - 199 mg/dL Blood 10/24/2024 8:31 PM INTERACTIVE GRAPHIC DESIGNER 10/24/2024 8:31 PM INTERACTIVE GRAPHIC DESIGNER Nabeel Paez DO [facility] POCT ORDERABLES - DEVICE Final Result Performing Organization Address [facility] Co de Phone Number [facility] [address] [facility] [place] [place] [address] * POCT glucose (10/24/2024 4:33 PM INTERACTIVE GRAPHIC DESIGNER) Glucose, POC 85 70 - 199 mg/dL Blood 10/24/2024 4:33 PM INTERACTIVE GRAPHIC DESIGNER 10/24/2024 4:33 PM INTERACTIVE GRAPHIC DESIGNER Nabeel Paez LAB POCT ORDERABLES - DEVICE Final Result Performing Organization Address City/[facility]/ZIP Co de Phone Number [facility] [address] [facility] [employer] [place] [address] * POCT glucose (10/24/2024 2:03 PM INTERACTIVE GRAPHIC DESIGNER) Glucose, POC 83 70 - 199 mg/dL Blood 10/24/2024 2:03 PM INTERACTIVE GRAPHIC DESIGNER 10/24/2024 2:03 PM INTERACTIVE GRAPHIC DESIGNER [facility] POCT ORDERABLES - DEVICE Final Result Performing Organization Address [facility] Co de Phone Number ALYSSAALANNAH [place] [address] [facility] [employer] [place] [address] * POCT glucose (10/24/2024 11:26 AM INTERACTIVE GRAPHIC DESIGNER) Glucose, POC 85 70 - 199 mg/dL Blood 10/24/2024 11:2 6 AM INTERACTIVE GRAPHIC DESIGNER 10/24/2024 11:26 AM INTERACTIVE GRAPHIC DESIGNER Nabeel Paez [facility] POCT ORDERABLES - DEVICE Final Result Performing Organization Address [facility] Co de Phone Number ALYSSAALANNAH [place] [address] [facility] [employer] [place] [address] * POCT glucose (10/24/2024 7:30 AM INTERACTIVE GRAPHIC DESIGNER) Glucose, POC 94 70 - 199 mg/dL Blood 10/24/2024 7:30 AM INTERACTIVE GRAPHIC DESIGNER 10/24/2024 7:30 AM INTERACTIVE GRAPHIC DESIGNER Nabeel Paez LAB POCT ORDERABLES - DEVICE Final Result Performing Organization Address City/[facility] [place] [address] [facility] [place] [place] [address] * TSH (10/24/2024 5:12 AM INTERACTIVE GRAPHIC DESIGNER) Thyroid Stimulating Hormone 0.48 0.30 - 4.20 mcIUnit/mL Blood 10/24/2024 5:12 AM INTERACTIVE GRAPHIC DESIGNER 10/24/2024 5:23 AM INTERACTIVE GRAPHIC DESIGNER Sherrill Christianson MD LAB BLOOD ORDERABLES Final Result Performing Organization Address [facility] Co de Phone Number [facility] [place] [address] Department [place] [employer] [place] [address] * (ABNORMAL) eGFR (10/24/2024 4:59 AM INTERACTIVE GRAPHIC DESIGNER) eGFR 13(L) >=60 mL/min/1. 73 m2 Comment: [...] last reviewed 2021. Blood 10/24/2024 4:59 AM INTERACTIVE GRAPHIC DESIGNER 10/24/2024 5:23 AM INTERACTIVE GRAPHIC DESIGNER us Raisa Scherer NP LAB BLOOD ORDERABLES Jeaneth l Result Performing Organization Address City/[facility]/ZIP Co de Phone Number [facility] [address] Department [place] [employer] [place] [address] * (ABNORMAL) CBC without differential (10/24/2024 4:59 AM INTERACTIVE GRAPHIC DESIGNER) WBC 5.1 3.8 - 9.9 K/cumm Hgb [...] K/cumm [facility] Blood 10/24/2024 4:59 AM INTERACTIVE GRAPHIC DESIGNER 10/24/2024 5:20 AM INTERACTIVE GRAPHIC DESIGNER us Raisa Scherer ZOOLOGY PROFESSOR LAB BLOOD ORDERABLES Jeaneth mari Result [facility] [address] Department [place] [address] * (ABNORMAL) Basic metabolic panel (10/24/2024 4:59 AM INTERACTIVE GRAPHIC DESIGNER) Sodium 136 135 - 145 mmol/L Potassium, pl 4.2 3.3 - 4.9 mmol/L [facility] Chloride 94(L) 97 - 110 mmol/L [facility] [...] 2022. Calcium 9.1 8.5 - 10.3 mg/dL [facility] Blood 10/24/2024 4:59 AM INTERACTIVE GRAPHIC DESIGNER 10/24/2024 5:20 AM INTERACTIVE GRAPHIC DESIGNER Raisa Scherer ZOOLOGY PROFESSOR LAB BLOOD ORDERABLES Jeaneth l Result Performing Organization Address [facility]/ZIP Co de Phone Number ALYSSAALANNAH [address] [facility] [employer] [place], [place] [id number] * POCT glucose (10/24/2024 2:39 AM INTERACTIVE GRAPHIC DESIGNER) Glucose, POC 123 70 - 199 mg/dL Blood 10/24/2024 2:39 AM INTERACTIVE GRAPHIC DESIGNER 10/24/2024 2:39 AM INTERACTIVE GRAPHIC DESIGNER Nabeel Paez DO [facility] POCT ORDERABLES - DEVICE Final Result Performing Organization Address [facility] Co de Phone Number ALYSSAALANNAH [address] [facility] [place] [place] [address] * POCT glucose (10/23/2024 10:25 PM INTERACTIVE GRAPHIC DESIGNER) Glucose, POC 173 70 - 199 mg/dL Blood 10/23/2024 10:2 5 PM INTERACTIVE GRAPHIC DESIGNER 10/23/2024 10:25 PM INTERACTIVE GRAPHIC DESIGNER Nabeel Paez DO [facility] POCT ORDERABLES - DEVICE Final Result Performing Organization Address [facility] Co de Phone Number NIDIA [address] [facility] [place] [place] [address] * POCT glucose (10/23/2024 8:04 PM INTERACTIVE GRAPHIC DESIGNER) Glucose, POC 70 70 - 199 mg/dL Blood 10/23/2024 8:04 PM INTERACTIVE GRAPHIC DESIGNER 10/23/2024 8:04 PM INTERACTIVE GRAPHIC DESIGNER Nabeel Paez LAB POCT ORDERABLES - DEVICE Final Result Performing Organization Address City/[facility] Co de Phone Number [place] [address] [place] [address] * POCT glucose (10/23/2024 5:42 PM INTERACTIVE GRAPHIC DESIGNER) Pathologist [facility] Glucose, POC 90 70 - 199 mg/dL Blood 10/23/2024 5:42 PM INTERACTIVE GRAPHIC DESIGNER 10/23/2024 5:42 PM INTERACTIVE GRAPHIC DESIGNER Nabeel Paez [facility] POCT ORDERABLES - DEVICE Final Result Performing Organization Address [facility] de Phone Number [place] [address] [place] [address] * Hepatitis panel, acute Blood (10/23/2024 2:45 PM INTERACTIVE GRAPHIC DESIGNER) [facility] Hep A IgM Nonreactive Nonreactive Comment: Interpretive Data: If Hep A IgM Ab is reported as Equivocal, a new sample should be drawn in two weeks for testing. Current interpretive data was last revised on 20. Hep B core IgM Nonreactive Nonreactive [facility] [facility] Comment: Interpretive Data If HepB Core IgM Ab is reported as Equivocal, a new sample should be drawn in two weeks for testing. Current interpretive data was last revised on 20. Hep C Ab Nonreactive Nonreactive [facility] Comment: Interpretive Data Nonreactive: Antibodies to [...] last revised on 2020. HepBsAg Nonreactive Nonreactive [facility] Blood 10/23/2024 2:45 PM INTERACTIVE GRAPHIC DESIGNER 10/23/2024 2:46 PM INTERACTIVE GRAPHIC DESIGNER Sherrill Christianson MD LAB MICROBIOLOGY - GENERAL ORDERABLES Final Result Performing Organization Address [facility] Co de Phone Number NIDIA COTE [address] [facility] [employer] [place] [address] * Hepatitis B surface antibody (immune status) Blood (10/23/2024 2:45 PM INTERACTIVE GRAPHIC DESIGNER) HBsAb (immune status) Nonreactive Comment: Interpretive Data [...] revised on 20. Blood 10/23/2024 2:45 PM INTERACTIVE GRAPHIC DESIGNER 10/23/2024 2:46 PM INTERACTIVE GRAPHIC DESIGNER Sherrill Christianson MD LAB MICROBIOLOGY - GENERAL ORDERABLES Final Result Performing Organization Address [facility] Co de Phone Number NIDIA COTE [address] [employer] [place] [address] * (ABNORMAL) POCT glucose (10/23/2024 12:57 PM INTERACTIVE GRAPHIC DESIGNER) Glucose, POC 69(L) 70 - 199 mg/dL Blood 10/23/2024 12:5 7 PM INTERACTIVE GRAPHIC DESIGNER 10/23/2024 12:57 PM INTERACTIVE GRAPHIC DESIGNER Nabeel Paez DO LAB POCT ORDERABLES - DEVICE Final Result Performing Organization Address [facility] Co de Phone Number NIDIA COTE [address] Department [place] [employer] [place] [address] * POCT glucose (10/23/2024 7:47 AM INTERACTIVE GRAPHIC DESIGNER) Glucose, POC 81 70 - 199 mg/dL Blood 10/23/2024 7:47 AM INTERACTIVE GRAPHIC DESIGNER 10/23/2024 7:47 AM INTERACTIVE GRAPHIC DESIGNER Sylvester Engel MD LAB POCT ORDERABLES - DEVICE Final Result Performing Organization Address City/[facility]/ZIP Co de Phone Number ALYSSAALANNAH COTE [address] Department [place] [employer] [place] [address] * (ABNORMAL) eGFR (10/23/2024 5:27 AM INTERACTIVE GRAPHIC DESIGNER) eGFR 11(L) >=60 mL/min/1. 73 m2 Comment: [...] last reviewed 2021. Blood 10/23/2024 5:27 AM INTERACTIVE GRAPHIC DESIGNER 10/23/2024 5:32 AM INTERACTIVE GRAPHIC DESIGNER us Raisa Scherer NP LAB BLOOD ORDERABLES Jeaneth l Result ALYSSAALANNAH COTE [address] Department [place] [employer] [place] [address] * (ABNORMAL) Differential, auto (10/23/2024 5:27 AM INTERACTIVE GRAPHIC DESIGNER) Neutrophil abs 4.1 1.5 - 6.5 K/cumm Imm gran abs 0.1 0.0 - 0.1 K/cumm [facility] Lymphocyte abs 0.4(L) 0.8 - 3.3 K/cumm [facility] Monocyte abs 0.7 0.2 - 0.8 K/cumm [facility] Eosinophil abs 0.1 0.0 - 0.5 K/cumm [facility] Basophil abs 0.0 0.0 - 0.1 K/cumm [facility] Neutrophil pct 76.5 % [facility] Comment: Interpretive Data Percent cell count reference ranges are not reported, since discordance with absolute values may lead to misinterpretation of CBC data. Current Interpretive Data was last revised on 2018. Imm gran pct 1.1 % [facility] Comment: Interpretive Data Percent cell count reference ranges are not reported, since discordance with absolute values may lead to misinterpretation of CBC data. Current Interpretive Data was last revised on 2018. Lymphocyte pct 7.9 % [facility] Comment: Interpretive Data Percent cell count reference ranges are not reported, since discordance with absolute values may lead to misinterpretation of CBC data. Current Interpretive Data was last revised on 2018. Monocyte pct 12.7 % [facility] Comment: Interpretive Data Percent cell count reference ranges are not reported, since discordance with absolute values may lead to misinterpretation of CBC data. Current Interpretive Data was last revised on 2018. Eosinophil pct 1.1 % [facility] Comment: Interpretive Data Percent cell count reference ranges are not reported, since discordance with absolute values may lead to misinterpretation of CBC data. Current Interpretive Data was last revised on 2018. Basophil pct 0.7 % [facility] Comment: Interpretive Data Percent cell count reference ranges are not reported, since discordance with absolute values may lead to misinterpretation of CBC data. Current Interpretive Data was last revised on 2018. Blood 10/23/2024 5:27 AM INTERACTIVE GRAPHIC DESIGNER 10/23/2024 5:30 AM INTERACTIVE GRAPHIC DESIGNER us Raisa Scherer NP LAB BLOOD ORDERABLES Jeaneth mari Result ALYSSAALANNAH [address] [facility] [place] [address] * (ABNORMAL) CBC with auto differential (10/23/2024 5:27 AM INTERACTIVE GRAPHIC DESIGNER) Pathologist [facility] WBC 5.3 3.8 - 9.9 K/cumm Hgb 8.8(L) 13.0 - 17.5 g/dL [facility] Hct 28.9(L) 38.9 - 50.3 % [facility] Plt 179 150 - 400 K/cumm [facility] MPV 10.4 9.1 - 12.3 fL [facility] RBC 2.86(L) 4.30 - 5.80 M/cumm [facility] MCV 101.0(H) 81.3 - 96.4 fL [facility] MCH 30.8 27.1 - 33.3 pg [facility] MCHC 30.4(L) 32.3 - 35.7 g/dL [facility] RDW CV 17.2(H) 11.1 - 14.9 % [facility] RDW SD 63.7(H) 35.7 - 48.1 fL [facility] NRBC abs 0.00 0.00 - 0.01 K/cumm [facility] Blood 10/23/2024 5:27 AM INTERACTIVE GRAPHIC DESIGNER 10/23/2024 5:30 AM INTERACTIVE GRAPHIC DESIGNER Raisa Scherer ZOOLOGY PROFESSOR LAB BLOOD ORDERABLES Jeaneth l Result Performing Organization Address [facility] Co de Phone Number [facility] [address] [facility] [employer] [place] [address] * Phosphorus (10/23/2024 5:27 AM INTERACTIVE GRAPHIC DESIGNER) [facility] Phosphorus, pl 4.5 2.3 - 4.5 mg/dL Blood 10/23/2024 5:27 AM INTERACTIVE GRAPHIC DESIGNER 10/23/2024 5:30 AM INTERACTIVE GRAPHIC DESIGNER Raisa Scherer ZOOLOGY PROFESSOR LAB BLOOD ORDERABLES Jeaneth l Result Performing Organization Address City/[facility] Co de Phone Number [facility] [address] Department [place] [employer] [place] [address] * Magnesium (10/23/2024 5:27 AM INTERACTIVE GRAPHIC DESIGNER) Magnesium 2.1 1.4 - 2.5 mg/dL Blood 10/23/2024 5:27 AM INTERACTIVE GRAPHIC DESIGNER 10/23/2024 5:30 AM INTERACTIVE GRAPHIC DESIGNER us Raisa Scherer ZOOLOGY PROFESSOR LAB BLOOD ORDERABLES Jeaneth l Result [facility]ER [address] [facility] [place] [address] * (ABNORMAL) Comprehensive metabolic panel (10/23/2024 5:27 AM INTERACTIVE GRAPHIC DESIGNER) Sodium 137 135 - 145 mmol/L Potassium, [...] CH AST 6(L) 10 - 50 Units/L [facility] Blood 10/23/2024 5:27 AM INTERACTIVE GRAPHIC DESIGNER 10/23/2024 5:30 AM INTERACTIVE GRAPHIC DESIGNER Raisa Scherer ZOOLOGY PROFESSOR LAB BLOOD ORDERABLES Jeaneth l Result Performing Organization Address [facility] de Phone Number NIDIA [address] [facility] [employer] [place] [address] * POCT glucose (10/23/2024 3:04 AM INTERACTIVE GRAPHIC DESIGNER) Glucose, POC 84 70 - 199 mg/dL Blood 10/23/2024 3:04 AM INTERACTIVE GRAPHIC DESIGNER 10/23/2024 3:04 AM INTERACTIVE GRAPHIC DESIGNER Sylvester Engel MD LAB POCT ORDERABLES - DEVICE Final Result Performing Organization Address [facility] Phone Number [facility] [address] [facility] [place] [place] [address] * POCT glucose (10/22/2024 10:42 PM INTERACTIVE GRAPHIC DESIGNER) Glucose, POC 101 70 - 199 mg/dL Blood 10/22/2024 10:4 2 PM INTERACTIVE GRAPHIC DESIGNER 10/22/2024 10:42 PM INTERACTIVE GRAPHIC DESIGNER Sylvester Engel MD LAB POCT ORDERABLES - DEVICE Final Result Performing Organization Address [facility] de Phone Number [facility] [address] [facility] [place] [place] [address] * POCT glucose (10/22/2024 8:42 PM INTERACTIVE GRAPHIC DESIGNER) Glucose, POC 114 70 - 199 mg/dL Blood 10/22/2024 8:42 PM INTERACTIVE GRAPHIC DESIGNER 10/22/2024 8:42 PM INTERACTIVE GRAPHIC DESIGNER Guru Miller MD LAB POCT ORDERABLES - DEVICE Final Result Performing Organization Address [facility]/State/ZIP Co de Phone Number NIDIA COTE [address] Department [place] [employer] [place] [address] * (ABNORMAL) HM DIABETES EYE EXAM (08/13/2024 9:40 AM CDT) Historical Provider HEALTH MAINTENANCE Edited Result - Final * (ABNORMAL) Albumin Creatinine Ratio, Urine (03/10/2024 8:46 AM CDT) Albumin Ur 3,169.5 mg/L Comment: Interpretive Data No reference range established. Current interpretive data was last revised 2019. Creatinine Ur 47.7 mg/dL [facility] Comment: Interpretive Data No reference range established. Current interpretive data was last revised 2019. Albumin Creatinine Ratio, Ur 6,645(H) 1 - 29 mg/g [facility] Urine 03/10/2024 8:46 AM CDT 03/11/2024 9:11 AM CDT Bertha Pinto NP LAB URINE ORDERABLES Jeaneth l Result NIDIA COTE [address] [place] [address] * (ABNORMAL) Lipid panel (03/03/2024 9:29 AM [...] revised on 2018. Triglycerides 75 <=149 mg/dL [facility] Comment: Interpretive Data Ages < or [...] BLOOD ORDERABLES Jeaneth l Result NIDIA COTE [address] [facility] [place] [address] * CT Abdomen Pelvis WO Contrast (12/05/2021 11:53 AM INTERACTIVE GRAPHIC DESIGNER) Anatomical Region Laterality Modality Body N/A Computed Tomogra phy 12/05/2021 12:0 4 PM INTERACTIVE GRAPHIC DESIGNER Impressions 12/05/2021 12:04 PM INTERACTIVE GRAPHIC DESIGNER Bone windows show no suspicious lytic or blastic lesions. IMPRESSION: 1. 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 2. 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 Electronically signed by: Ryan Cameron M.D. Narrative 12/05/2021 12:04 PM INTERACTIVE GRAPHIC DESIGNER EXAMINATION: Computed tomography of the abdomen/pelvis without [...] adeniform shape. There is atrophy of both [place] kidneys. Adjacent fat stranding is likely related [...] secondary to atherosclerotic disease. Procedure Note Ryan aCmeron MD - 12/05/2021 EXAMINATION: Computed tomography of [...] adeniform shape. There is atrophy of both [place] kidneys. Adjacent fat stranding is likely related [...]
--- OUTSIDE RECORDS SUMMARY | 2025-01-05 11:04 | XMS_ITS | Clinical Summary ---
Author Organization [facility] Address [address] [place] [id number] Care Team Providers Care Tangled Yarn Worker Name Role Phone Efren Hoyos MD Unavailable Dank Hicks MD Unavailable [phone] Mariza Carrion MD Primary Care Provider Allergies [...] 12/09/2019 Assessment & Plan (09/03/2023 9:28 AM REHABILITATOR): Chronic problem. [facility] [place]: //Saturdays. LUE fistula. Assessment & Plan (03/05/2023 9:59 AM CDT): Chronic problem. [facility] [place]: //Saturdays. LUE fistula. ESRD on dialysis 05/22/2019 Hyperlipidemia associated with type 2 diabetes fouzia victoria 05/22/2019 Assessment & Plan (11/24/2024 10:10 AM REHABILITATOR): Chronic problem. Controlled on current Atorvastatin 20mg. Last lipid panel: 03/03/24 LDL=33, TG=75. Assessment & Plan (03/03/2024 8:45 AM CDT): Chronic problem. Controlled on current Atorvastatin 20mg. Last lipid panel: 03/05/23 LDL=57, XF=973. Will update labs today. Does not mychart. Verified phone #/address to contact re: results. Assessment & Plan (09/03/2023 9:28 AM REHABILITATOR): Chronic problem. Controlled on current Atorvastatin 20mg. Last lipid panel: 03/05/23 LDL=57, MV=204. Assessment & Plan (03/05/2023 9:53 AM CDT): Chronic problem. Controlled on current Atorvastatin 20mg. Last lipid panel: 12/05/21 LDL=36, OZ=451. Will update labs today. Verified phone #/address to contact re: results. Assessment & Plan (11/02/2022 2:47 PM REHABILITATOR): Chronic, well controlled Low fat Low cholesterol [...] Lipitor Assessment & Plan (09/07/2020 2:26 PM REHABILITATOR): Goal of treatment , LDL cholesterol less [...] panel Assessment & Plan (12/09/2019 2:03 PM REHABILITATOR): Very high TG Add Vascepa Assessment & [...] statin therapy Coronary artery disease invo lving [place] coronary artery of [place] heart without angina pectoris 10/04/2017 Hx of CABG 10/04/2017 Class 2 severe obesity due t o excess calories with serious comorbidity and body mass index (BMI) of 38.0 to 38.9 in adult 05/22/2017 Assessment & Plan (10/24/2018 12:58 PM REHABILITATOR): Making progress with diet efforts. Continue Assessment & Plan (02/08/2018 11:01 AM CDT): Importance of following diet and exercising discussed. Hypertension associated with diabetes 05/22/2017 Assessment & Plan (11/24/2024 10:11 AM REHABILITATOR): Chronic problem. Controlled on current losartan 100mg daily, amlodipine 10mg daily Assessment & Plan (03/03/2024 8:45 AM CDT): Chronic problem. BP elevated upon arrival. Controlled on current Carvedilol 25mg bid, losartan 100mg daily. No changes at this time. Will update labs today. Does not mychart. Verified phone #/address to contact re: results. Assessment & Plan (09/03/2023 9:28 AM REHABILITATOR): Chronic problem. BP elevated upon arrival. Controlled [...] renal Assessment & Plan (10/24/2018 12:57 PM REHABILITATOR): Controlled. Continue current medication plan and follow up with cardiology Assessment & Plan (06/18/2018 2:30 PM CDT): BP controlled on current medication plan. Continue follow up with nephrology Assessment & Plan (02/08/2018 11:00 AM CDT): Continue same medication Assessment & Plan (12/11/2017 10:24 AM REHABILITATOR): Goal blood pressure is less than 140/85 [...] mellitus Assessment & Plan (11/24/2024 10:16 AM REHABILITATOR): Chronic problem, controlled on current regimen. A1c [...] daily for skin breakdown and infection (sees ase certified technician regularly). Assessment & Plan (03/03/2024 9:19 AM [...] daily for skin breakdown and infection (sees ase certified technician regularly). Assessment & Plan (09/03/2023 9:27 AM REHABILITATOR): Chronic problem, controlled on current regimen. A1c [...] daily for skin breakdown and infection (sees ase certified technician regularly). Assessment & Plan (03/05/2023 10:13 AM CDT): Chronic problem, controlled on current regimen. Current medications: Trulicity 1.5mg weekly Lantus 6 units every morning Humalog 4 units before meals For sugars over 160: take 6 units For sugars over 200: take 8 units Seen by Retina Rifton every 4-5 mos; letter sent to get [...] daily for skin breakdown and infection (sees ase certified technician regularly). Will update labs today. Verified phone #/address to contact re: results. Assessment & Plan (11/02/2022 2:43 PM REHABILITATOR): Well controlled, with risk of hypoglycemia Insuli [...] Ross Assessment & Plan (09/07/2020 2:26 PM REHABILITATOR): Hba1c was Lab Results Component Value Date [...] Trulicity. Assessment & Plan (12/09/2019 2:03 PM REHABILITATOR): Your Hba1c today was: Lab Results Component Value Date HGBA1C 9.3 12/09/2019 meaning a 3 month average sugar of : 224 Your goal hba1c is under 7.0 to prevent detention diabetes complications ( eye , kidney and [...] hypoglycemia. Assessment & Plan (10/24/2018 1:00 PM REHABILITATOR): Stable BG pattern 100-140 reported since last adjustment to plan. No change today. BG goals reviewed. Advised to lower Lantus by 2 units if FBG are < 100 x 2 days/wk. For planned activity, reduce Humalog dose by 1/2 at preceding meal. 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 Assessment & Plan (12/11/2017 10:47 AM REHABILITATOR): Hba1c was .5.4 Today, 1800 calorie, consistent [...] 05/22/2019 Assessment & Plan (09/19/2018 11:20 AM REHABILITATOR): Prevention and treatment of hypoglycemia were discussed [...] therapy Assessment & Plan (10/24/2018 12:57 PM REHABILITATOR): Check lipid panel Assessment & Plan (06/18/2018 2:31 PM CDT): Continue statin therapy Assessment & Plan (02/08/2018 11:00 AM CDT): Continue atorvastatin Assessment & Plan (12/11/2017 10:45 AM REHABILITATOR): Goal of treatment , LDL cholesterol less [...] Type Department Care Team Description 12/30/2024 Telephone [facility] Cardiology [address] [place] [address] [place] [phone] Dank Hicks MD 12/22/2024 Orders Only [facility] Cardiology [address] [address] [address] [place] [phone] Curt Grady MD 11/25/2024 Telephone [facility] Diabetes and Endocrinology [address] [place] [phone] Bertha Pinto NP [employer] 11/25/2024 Telephone [facility] Diabetes and Endocrinology [address] [place] [phone] Bertha Pinto NP Med Management (Humalog ) 11/24/2024 11:00 AM REHABILITATOR Office Visit [facility] Diabetes and Endocrinology [address] [place] [phone] Bertha Pinto, JUAREZ Type 2 diabetes mellitus with hyperglycemia, with long-term current use of insulin (CMS/HCC) (Primary Dx); Hypertension associated with diabetes (HCC); Hyperlipidemia associated with type 2 diabetes mellitus (HCC) 11/05/2024 1:30 PM REHABILITATOR Ancillary Procedure [facility] Cardiology [address] [facility] [address] [place] [phone] Cardiac pacemaker in situ; Asystole (HCC); Syncope and collapse; Symptomatic bradycardia 11/04/2024 Orders Only [facility] Cardiology [address] [place] [address] [place] [phone] Dank Hicks MD Cardiac pacemaker in situ (Primary Dx); Asystole (HCC); Syncope and collapse; Symptomatic bradycardia 10/24/2024 12:58 PM REHABILITATOR Anesthesia Event [facility] Cardiac Catheterization Lab [address] [place] [address] Bahman Arrington MD Sheehan, Whitney Elise, CRNA 10/24/2024 12:30 PM REHABILITATOR - 10/24/2024 2:30 PM REHABILITATOR Surgery [facility] Cardiac Catheterization Lab [address] [place] [id number] Darien Jamil Jr., MD LEADLESS, SINGLE CHAMBER PACEMAKER (PPM) INSERTION 10/23/2024 Orders Only [facility] Cardiac Catheterization Lab [address] [place] [id number] Darien Jamil Jr., MD Syncope and collapse (Primary Dx) 10/22/2024 8:28 PM REHABILITATOR - 10/25/2024 3:09 PM REHABILITATOR Hospital Encounter [address] [address] Guru Miller MD Brother, Michele, MD Durante, Mitchell Joseph, Syncope and collapse [R55] (Primary Dx); ESRD on dialysis ([facility]) [N18.6, Z99.2]; 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, without long-term current use of insulin ([facility]) ([facility]) [E11.22, N18.6, Z99.2]; Syncope and collapse; Type 2 diabetes mellitus with hyperglycemia, with long-term current use of insulin ([facility]) [E11.65, Z79.4]; Asystole ([facility]) ([facility]) [I46.9] Discharge Disposition: Discharge to [...] drink = 0.6 oz pur e alcohol) [facility] Utilities Answer Date Recorded In the past 12 months has [employer] gas, oil, or water [place] threatened to shut off services in your [...] often do you attend chur ch or restorationist services? Never 10/23/2024 Do you belong to any clubs o r organizations such as adventist groups, unions, fraternal or athletic groups, or [...] any time in the past 12 m [facility], were you homeless or living in a residential (including now)? No 10/23/2024 Personal Safety Answer Date Recorded Have you ever been in or are you currently in a harmful physical or emotional relationship or is someone making you feel afraid or unsafe? Denies 10/22/2024 Sex and Gender Information Value Date Recorded Sex Assigned at Not on file Legal Sex Male 7:27 PM REHABILITATOR Gender Identity Not on file Sexual Orientation Not on file Obstetrics History Last Filed Vital Signs Vital Sign Reading Time Taken Comments Blood Pressure 102/58 11/24/2024 9:58 AM REHABILITATOR Pulse 75 11/24/2024 9:58 AM REHABILITATOR Temperature 36.3 C (97.3 F) 10/25/2024 2:15 PM REHABILITATOR Respiratory Rate 20 11/24/2024 9:58 AM REHABILITATOR Oxygen Saturation 100% 10/25/2024 1:15 PM REHABILITATOR Inhaled Oxygen Concentration - - Weight 91.3 kg (201 lb 4.5 oz) 10/22/2024 8:29 P M REHABILITATOR Height 170.2 cm (5' 7.01 ) 11/24/2024 9:58 AM CS T Body Mass Index 31.52 10/22/2024 8:29 PM REHABILITATOR Plan of Treatment Health Maintenance Due Date [...] 10/23/2024, 022 Medical Devices Implanted Type Area Bilingual Kindergarten Teacher Device Identifier Shelf Expiration Date Model / Serial / Lot Med[employer]onic Inc Micra 2 Av Synchronous Leadless Ventricular Pacemaker [id number] - [id number] - [id number] Implanted:Qty: 1 on 10/24/2024 by Darien Jamil Jr., MD at [facility] [employer] 02/16/2026 [id number] / [id number] / Procedures Procedure Name Priority Date/Time Associated Diagnosis Comments CARDIOLOGY DOCUMENT SCAN Routine 12/10/2024 10:59 AM REHABILITATOR POCT GLUCOSE Routine 11/24/2024 10:01 AM REHABILITATOR Type 2 diabetes mellitus with hyperglycemia, with long-term current use of insulin (CMS/HCC) POCT HEMOGLOBIN A1C Routine 11/24/2024 1 0:01 AM REHABILITATOR Type 2 diabetes mellitus with hyperglycemia, with long-term current use of insulin (CMS/HCC) DEVICE CHECK - IN OFFICE Routine 11/05/2024 1:22 PM REHABILITATOR Cardiac pacemaker in situ Asystole (HCC) Syncope and collapse Symptomatic bradycardia POCT GLUCOSE DEVICE Routine 10/25/2024 1 2:56 PM REHABILITATOR POCT GLUCOSE DEVICE Routine 10/25/2024 8 :10 AM REHABILITATOR POCT GLUCOSE DEVICE Routine 10/25/2024 7 :43 AM REHABILITATOR EGFR Routine 10/25/2024 5:48 AM REHABILITATOR BASIC METABOLIC PANEL Routine 10/25/2024 5:48 AM REHABILITATOR CBC WITHOUT DIFFERENTIAL Routine 10/25/2024 5:48 AM REHABILITATOR POCT GLUCOSE DEVICE Routine 10/25/2024 2 :25 AM REHABILITATOR POCT GLUCOSE DEVICE Routine 10/24/2024 8 :31 PM REHABILITATOR POCT GLUCOSE DEVICE Routine 10/24/2024 4 :33 PM REHABILITATOR POCT GLUCOSE DEVICE Routine 10/24/2024 2 :03 PM REHABILITATOR LEADLESS, SINGLE CHAMBER PACEMAKER (PPM) INSERTION Routine 10/24/2024 1:36 PM REHABILITATOR Syncope and collapse POCT GLUCOSE DEVICE Routine 10/24/2024 1 1:26 AM REHABILITATOR POCT GLUCOSE DEVICE Routine 10/24/2024 7 :30 AM REHABILITATOR TSH Routine 10/24/2024 5:12 AM REHABILITATOR EGFR Routine 10/24/2024 4:59 AM REHABILITATOR BASIC METABOLIC PANEL Routine 10/24/2024 4:59 AM REHABILITATOR CBC WITHOUT DIFFERENTIAL Routine 10/24/2024 4:59 AM REHABILITATOR POCT GLUCOSE DEVICE Routine 10/24/2024 2 :39 AM REHABILITATOR POCT GLUCOSE DEVICE Routine 10/23/2024 1 0:25 PM REHABILITATOR POCT GLUCOSE DEVICE Routine 10/23/2024 8 :04 PM REHABILITATOR POCT GLUCOSE DEVICE Routine 10/23/2024 5 :42 PM REHABILITATOR HEPATITIS B SURFACE ANTIBODY (IMMUNE STATUS) Routine 10/23/2024 2:45 PM REHABILITATOR HEPATITIS PANEL, ACUTE Routine 10/23/2024 2:45 PM REHABILITATOR POCT GLUCOSE DEVICE Routine 10/23/2024 1 2:57 PM REHABILITATOR HEMODIALYSIS Routine 10/23/2024 9:13 AM REHABILITATOR POCT GLUCOSE DEVICE Routine 10/23/2024 7 :47 AM REHABILITATOR EGFR Routine 10/23/2024 5:27 AM REHABILITATOR DIFFERENTIAL AUTO Routine 10/23/2024 5:2 7 AM REHABILITATOR MAGNESIUM Routine 10/23/2024 5:27 AM REHABILITATOR PHOSPHORUS Routine 10/23/2024 5:27 AM REHABILITATOR COMPREHENSIVE METABOLIC PANEL Routine 10/23/2024 5:27 AM REHABILITATOR CBC WITH AUTO DIFFERENTIAL Routine 10/23/2024 5:27 AM REHABILITATOR POCT GLUCOSE DEVICE Routine 10/23/2024 3 :04 AM REHABILITATOR POCT GLUCOSE DEVICE Routine 10/22/2024 1 0:42 PM REHABILITATOR POCT GLUCOSE DEVICE Routine 10/22/2024 8 :42 PM REHABILITATOR HM DIABETES EYE EXAM Routine 08/13/2024 9:40 AM CDT ALBUMIN CREATININE RATIO, URINE Routine 03/10/2024 8:46 AM CDT Type 2 diabetes mellitus with hyperglycemia, with long-term current use of insulin ([facility]/HCC) LIPID PANEL Routine 03/03/2024 9:29 AM CDT Type 2 diabetes mellitus with hyperglycemia, with long-term current use of insulin (CMS/[facility]) Hyperlipidemia associated with type 2 diabetes mellitus (HCC) CT ABDOMEN PELVIS WO CONTRAST Schedule Routine, Read Routine (OP Routine) 12/05/2021 11:53 AM REHABILITATOR End stage renal disease (HCC) from Last 3 Months or Most Recently Relevant to Health Maintenance Results * Cardiology Document Scan (12/10/2024 10:59 AM REHABILITATOR) Anatomical Region Laterality Modality Other Curt Grady MD [facility] CARDIAC SERVICES PRO CEDURES Final Result * POCT hemoglobin A1c (11/24/2024 10:01 AM REHABILITATOR) Hemoglobin A1C, POC 4.9 4.0 - 5.6 % Blood 11/24/2024 10:0 1 AM REHABILITATOR us Bertha Pinto NP POINT OF CARE TEST ORDERA BLES Final Result * (ABNORMAL) POCT glucose (11/24/2024 10:01 AM REHABILITATOR) Glucose Blood, POC 131 mg/dL Blood 11/24/2024 10:0 1 AM REHABILITATOR us Bertha Pinto NP POINT OF CARE TEST ORDERA BLES Final Result * DEVICE CHECK - IN OFFICE (11/05/2024 1:22 PM REHABILITATOR) Anatomical Region Laterality Modality Other Narrative 11/13/2024 2:43 PM REHABILITATOR Medtronic Micra AV2 Pacemaker. Dx; Symptomatic Bradycardia, Sinus Arrest, Syncope. DOI 10/24/2024-Ramadan. Patricia. [facility] remote. Supervising MD: Dr Harris. Patient seen in device clinic today s/p Micra AVR pacemaker implant. Interrogation of pacemaker demonstrated appropriate device function. Battery function-3.18VV, >10.0 years remaining to ANA LAUAR. Electrode impedance, capture threshold, and measured r-wave are stable and appropriate. Presenting rhythm: VS (SR). Vpaced-4%. Medications;ASA 81 mg. No programming changes made to device settings. See scanned report. Office pacemaker f/u 6-8 weeks. [facility] remote. Yamel Cesar RN Dank Hicks MD CV CARDIAC SERVICES PROC EDURES Final Result * POCT glucose (10/25/2024 12:56 PM REHABILITATOR) Glucose, POC 74 70 - 199 mg/dL Blood 10/25/2024 12:5 6 PM REHABILITATOR 10/25/2024 12:56 PM REHABILITATOR Nabeel Stantonnte LAB POCT ORDERABLES - DEVICE Final Result Performing Organization Address [facility] Co de Phone Number NIDIA [address] Department [place] [address] * POCT glucose (10/25/2024 8:10 AM REHABILITATOR) [facility] Glucose, POC 100 70 - 199 mg/dL Blood 10/25/2024 8:10 AM REHABILITATOR 10/25/2024 8:10 AM REHABILITATOR [facility] POCT ORDERABLES - DEVICE Final Result Performing Organization Address [facility] de Phone Number NIDIA [address] [address] [place] [address] * POCT glucose (10/25/2024 7:43 AM REHABILITATOR) [facility] Glucose, POC 78 70 - 199 mg/dL Blood 10/25/2024 7:43 AM REHABILITATOR 10/25/2024 7:43 AM REHABILITATOR [facility] POCT ORDERABLES - DEVICE Final Result Performing Organization Address [facility] de Phone Number ALYSSAALANNAH [address] [address] [facility] [place] [address] * (ABNORMAL) eGFR (10/25/2024 5:48 AM REHABILITATOR) [facility] eGFR 9(L) >=60 mL/min/1. 73 m2 [...] last reviewed 2021. Blood 10/25/2024 5:48 AM REHABILITATOR 10/25/2024 6:03 AM REHABILITATOR us Raisa Scherer NP LAB BLOOD ORDERABLES Jeaneth mari Result [facility] [address] Department [place] [address] * (ABNORMAL) CBC without differential (10/25/2024 5:48 AM REHABILITATOR) WBC 4.6 3.8 - 9.9 K/cumm Hgb 8.3(L) 13.0 - 17.5 g/dL [facility] Hct 28.1(L) 38.9 - 50.3 % [facility] Plt 187 150 - 400 K/cumm [facility] MPV 10.6 9.1 - 12.3 fL [facility] RBC 2.82(L) 4.30 - 5.80 M/cumm [facility] MCV 99.6(H) 81.3 - 96.4 fL [facility] MCH 29.4 27.1 - 33.3 pg [facility] MCHC 29.5(L) 32.3 - 35.7 g/dL [facility] RDW CV 16.3(H) 11.1 - 14.9 % [facility] RDW SD 60.4(H) 35.7 - 48.1 fL [facility] NRBC abs 0.00 0.00 - 0.01 K/cumm [facility] Blood 10/25/2024 5:48 AM REHABILITATOR 10/25/2024 6:03 AM REHABILITATOR Raisa Scherer NP LAB BLOOD ORDERABLES Jeanteh l Result NIDIA [address] Department [place] [address] * (ABNORMAL) Basic metabolic panel (10/25/2024 5:48 AM REHABILITATOR) Pathologist [facility] Sodium 135 135 - 145 mmol/L Potassium, pl 4.3 3.3 - 4.9 mmol/L [facility] Chloride 93(L) 97 - 110 mmol/L [facility] CO2 27 22 - 32 mmol/L [facility] Anion gap 15 2 - 15 mmol/L [facility] BUN 30(H) 6 - 25 mg/dL [facility] Creatinine 5.94(H) 0.80 - 1.30 mg/dL [facility] Glucose 76 70 - 199 mg/dL [facility] Comment: Interpretive Data Fasting glucose [...] 2022. Calcium 8.8 8.5 - 10.3 mg/dL [facility] Blood 10/25/2024 5:48 AM REHABILITATOR 10/25/2024 6:03 AM REHABILITATOR Raisa Scherer NP LAB BLOOD ORDERABLES Jeaneth l Result Performing Organization Address City/[facility]/ZIP Co de Phone Number [facility] [address] Department [place] [place] [address] * POCT glucose (10/25/2024 2:25 AM REHABILITATOR) Glucose, POC 81 70 - 199 mg/dL Blood 10/25/2024 2:25 AM REHABILITATOR 10/25/2024 2:25 AM REHABILITATOR Result [facility] Richard [facility] POCT ORDERABLES - DEVICE Final Result Performing Organization Address [facility] de Phone Number NIDIA [address] [address] [facility] [place] [address] * POCT glucose (10/24/2024 8:31 PM REHABILITATOR) Glucose, POC 120 70 - 199 mg/dL Blood 10/24/2024 8:31 PM REHABILITATOR 10/24/2024 8:31 PM REHABILITATOR [facility] Richard [facility] POCT ORDERABLES - DEVICE Final Result Performing Organization Address [facility] de Phone Number NIDIA [address] [address] [facility] [place] [address] * POCT glucose (10/24/2024 4:33 PM REHABILITATOR) Glucose, POC 85 70 - 199 mg/dL Blood 10/24/2024 4:33 PM REHABILITATOR 10/24/2024 4:33 PM REHABILITATOR [facility] POCT ORDERABLES - DEVICE Final Result Performing Organization Address [facility] de [place] [place] [address] [address] [facility] [place] [address] * POCT glucose (10/24/2024 2:03 PM REHABILITATOR) Glucose, POC 83 70 - 199 mg/dL Blood 10/24/2024 2:03 PM REHABILITATOR 10/24/2024 2:03 PM REHABILITATOR us Nabeel Richard Philippe DO LAB POCT ORDERABLES - DEVICE Final Result Performing Organization Address [facility] Co de Phone Number NIDIA COTE [address] [facility] [place] [address] * POCT glucose (10/24/2024 11:26 AM REHABILITATOR) Glucose, POC 85 70 - 199 mg/dL Blood 10/24/2024 11:2 6 AM REHABILITATOR 10/24/2024 11:26 AM REHABILITATOR Nabeel Paez LAB POCT ORDERABLES - DEVICE Final Result Performing Organization Address [facility] de Phone Number NIDIA COTE [address] [facility] [place] [address] * POCT glucose (10/24/2024 7:30 AM REHABILITATOR) Glucose, POC 94 70 - 199 mg/dL Blood 10/24/2024 7:30 AM REHABILITATOR 10/24/2024 7:30 AM REHABILITATOR Nabeel Ramos Philippe [facility] POCT ORDERABLES - DEVICE Final Result Performing Organization Address [facility] [place] [address] [address] [place] [address] * TSH (10/24/2024 5:12 AM REHABILITATOR) Thyroid Stimulating Hormone 0.48 0.30 - 4.20 mcIUnit/mL Blood 10/24/2024 5:12 AM REHABILITATOR 10/24/2024 5:23 AM REHABILITATOR Sherrill Christianson MD LAB BLOOD ORDERABLES Final Result Performing Organization Address [facility] [place] [address] [address] [facility] [place] [address] * (ABNORMAL) eGFR (10/24/2024 4:59 AM REHABILITATOR) eGFR 13(L) >=60 mL/min/1. 73 m2 Comment: [...] last reviewed 2021. Blood 10/24/2024 4:59 AM REHABILITATOR 10/24/2024 5:23 AM REHABILITATOR us Raisa Scherer NP LAB BLOOD ORDERABLES Jeaneth mari Result [facility] [address] Department [place] [address] * (ABNORMAL) CBC without differential (10/24/2024 4:59 AM REHABILITATOR) Pathologist [facility] WBC 5.1 3.8 - 9.9 K/cumm Hgb 8.9(L) 13.0 - 17.5 g/dL [facility] Hct 29.9(L) 38.9 - 50.3 % [facility] Plt 188 150 - 400 K/cumm [facility] MPV 10.2 9.1 - 12.3 fL [facility] RBC 2.93(L) 4.30 - 5.80 M/cumm [facility] MCV 102.0(H) 81.3 - 96.4 fL [facility] MCH 30.4 27.1 - 33.3 pg [facility] MCHC 29.8(L) 32.3 - 35.7 g/dL [facility] RDW CV 16.8(H) 11.1 - 14.9 % [facility] RDW SD 62.6(H) 35.7 - 48.1 fL [facility] NRBC abs 0.00 0.00 - 0.01 K/cumm [facility] Blood 10/24/2024 4:59 AM REHABILITATOR 10/24/2024 5:20 AM REHABILITATOR Raisa Scherer NP LAB BLOOD ORDERAB[place] [address] Department [place] [address] * (ABNORMAL) Basic metabolic panel (10/24/2024 4:59 AM REHABILITATOR) Sodium 136 135 - 145 mmol/L Potassium, [...] mg/dL [facility] Blood 10/24/2024 4:59 AM REHABILITATOR 10/24/2024 5:20 AM REHABILITATOR Raisa Scherer NP LAB BLOOD ORDERABLES Jeaneth l Result NIDIA COTE [address] [address] [facility] [place] [address] * POCT glucose (10/24/2024 2:39 AM REHABILITATOR) Glucose, POC 123 70 - 199 mg/dL Blood 10/24/2024 2:39 AM REHABILITATOR 10/24/2024 2:39 AM REHABILITATOR Nabeel Paez LAB POCT ORDERABLES - DEVICE Final Result Performing Organization Address [facility] Co de Phone Number NIDIA COTE [address] [facility] [place] [address] * POCT glucose (10/23/2024 10:25 PM REHABILITATOR) Glucose, POC 173 70 - 199 mg/dL Blood 10/23/2024 10:2 5 PM REHABILITATOR 10/23/2024 10:25 PM REHABILITATOR Nabeel HERRING POCT ORDERABLES - DEVICE Final Result Performing Organization Address [facility] Co de Phone Number NIDIA COTE [address] [address] [facility] [place] [address] * POCT glucose (10/23/2024 8:04 PM REHABILITATOR) Glucose, POC 70 70 - 199 mg/dL Blood 10/23/2024 8:04 PM REHABILITATOR 10/23/2024 8:04 PM REHABILITATOR Nabeel Paez LAB POCT ORDERABLES - DEVICE Final Result Performing Organization Address [facility] Co de Phone Number NIDIA COTE [address] [address] [facility] [place] [address] * POCT glucose (10/23/2024 5:42 PM REHABILITATOR) Glucose, POC 90 70 - 199 mg/dL Blood 10/23/2024 5:42 PM REHABILITATOR 10/23/2024 5:42 PM REHABILITATOR Nabeel Paez DO LAB POCT ORDERABLES - DEVICE Final Result Performing Organization Address [facility] Co de Phone Number NIDIA COTE [address] [address] Department [place] [address] * Hepatitis panel, acute Blood (10/23/2024 2:45 PM REHABILITATOR) Pathologist [facility] Hep A IgM Nonreactive Nonreactive Comment: Interpretive Data: If Hep A IgM Ab is reported as Equivocal, a new sample should be drawn in two weeks for testing. Current interpretive data was last revised on 20. Hep B core IgM Nonreactive Nonreactive [facility] Comment: Interpretive Data If HepB Core IgM Ab is reported as Equivocal, a new sample should be drawn in two weeks for testing. Current interpretive data was last revised on 20. Hep C Ab Nonreactive Nonreactive [facility] Comment: Interpretive Data Nonreactive: Antibodies [...] last revised on 2020. HepBsAg Nonreactive Nonreactive [facility] Blood 10/23/2024 2:45 PM REHABILITATOR 10/23/2024 2:46 PM REHABILITATOR Sherrill Christianson MD LAB MICROBIOLOGY - GENERAL ORDERABLES Final Result Performing Organization Address [facility] Co de Phone Number NIDIA COTE [address] [address] [place] [address] * Hepatitis B surface antibody (immune status) Blood (10/23/2024 2:45 PM REHABILITATOR) Pathologist [facility] HBsAb (immune status) Nonreactive Comment: Interpretive Data [...] revised on 20. Blood 10/23/2024 2:45 PM REHABILITATOR 10/23/2024 2:46 PM REHABILITATOR us Sherrill Christianson MD LAB MICROBIOLOGY - GENERAL ORDERABLES Final Result Performing Organization Address City/[facility]/ZIP Co de Phone Number NIDIA COTE [address] Department [place] [address] * (ABNORMAL) POCT glucose (10/23/2024 12:57 PM REHABILITATOR) Glucose, POC 69(L) 70 - 199 mg/dL Blood 10/23/2024 12:5 7 PM REHABILITATOR 10/23/2024 12:57 PM REHABILITATOR us Nabeel Paez DO LAB POCT ORDERABLES - DEVICE Final Result Performing Organization Address [facility] Co de Phone Number NIDIA COTE [address] Department [place] [address] * POCT glucose (10/23/2024 7:47 AM REHABILITATOR) Glucose, POC 81 70 - 199 mg/dL Blood 10/23/2024 7:47 AM REHABILITATOR 10/23/2024 7:47 AM REHABILITATOR Sylvester Engel MD LAB POCT ORDERABLES - DEVICE Final Result Performing Organization Address City/[facility] Co de Phone Number NIDIA COTE [address] Department [place] [address] * (ABNORMAL) eGFR (10/23/2024 5:27 AM REHABILITATOR) eGFR 11(L) >=60 mL/min/1. 73 m2 Comment: [...] last reviewed 2021. Blood 10/23/2024 5:27 AM REHABILITATOR 10/23/2024 5:32 AM REHABILITATOR us Raisa Scherer NP LAB BLOOD ORDERABLES Jeaneth l Result [facility] [address] [place] [address] * (ABNORMAL) Differential, auto (10/23/2024 5:27 AM REHABILITATOR) Pathologist [facility] Neutrophil abs 4.1 1.5 - 6.5 K/cumm Imm gran abs 0.1 0.0 - 0.1 K/cumm [facility] Lymphocyte abs 0.4(L) 0.8 - 3.3 K/cumm [facility] Monocyte abs 0.7 0.2 - 0.8 K/cumm [facility] Eosinophil abs 0.1 0.0 - 0.5 K/cumm [facility] Basophil abs 0.0 0.0 - 0.1 K/cumm [facility] Neutrophil pct 76.5 % [facility] Comment: Interpretive Data Percent cell count reference ranges are not reported, since discordance with absolute values may lead to misinterpretation of CBC data. Current Interpretive Data was last revised on 2018. Imm gran pct 1.1 % [facility] Comment: Interpretive Data Percent cell count reference ranges are not reported, since discordance with absolute values may lead to misinterpretation of CBC data. Current Interpretive Data was last revised on 2018. Lymphocyte pct 7.9 % [facility] Comment: Interpretive Data Percent cell count reference ranges are not reported, since discordance with absolute values may lead to misinterpretation of CBC data. Current Interpretive Data was last revised on 2018. Monocyte pct 12.7 % [facility] Comment: Interpretive Data Percent cell count reference ranges are not reported, since discordance with absolute values may lead to misinterpretation of CBC data. Current Interpretive Data was last revised on 2018. Eosinophil pct 1.1 % [facility] Comment: Interpretive Data Percent cell count reference ranges are not reported, since discordance with absolute values may lead to misinterpretation of CBC data. Current Interpretive Data was last revised on 2018. Basophil pct 0.7 % [facility] Comment: Interpretive Data Percent cell count reference ranges are not reported, since discordance with absolute values may lead to misinterpretation of CBC data. Current Interpretive Data was last revised on 2018. Blood 10/23/2024 5:27 AM REHABILITATOR 10/23/2024 5:30 AM REHABILITATOR us Raisa Scherer CURRICULUM DEVELOPMENT COORDINATOR LAB BLOOD ORDERABLES Jeaneth mari Result [facility] [address] [place] [address] * (ABNORMAL) CBC with auto differential (10/23/2024 5:27 AM REHABILITATOR) WBC 5.3 3.8 - 9.9 K/cumm Hgb 8.8(L) 13.0 - 17.5 g/dL [facility] Hct 28.9(L) 38.9 - 50.3 % [facility] Plt 179 150 - 400 K/cumm [facility] MPV 10.4 9.1 - 12.3 fL [facility] RBC 2.86(L) 4.30 - 5.80 M/cumm [facility] MCV 101.0(H) 81.3 - 96.4 fL [facility] MCH 30.8 27.1 - 33.3 pg [facility] MCHC 30.4(L) 32.3 - 35.7 g/dL [facility] RDW CV 17.2(H) 11.1 - 14.9 % [facility] RDW SD 63.7(H) 35.7 - 48.1 fL [facility] NRBC abs 0.00 0.00 - 0.01 K/cumm [facility] Blood 10/23/2024 5:27 AM REHABILITATOR 10/23/2024 5:30 AM REHABILITATOR Raisa Scherer CURRICULUM DEVELOPMENT COORDINATOR LAB BLOOD ORDERABLES Jeaneth l Result Performing Organization Address City/[facility] Co de Phone Number [facility] [address] [address] [facility] [employer] [place], [place] [id number] * Phosphorus (10/23/2024 5:27 AM REHABILITATOR) Phosphorus, pl 4.5 2.3 - 4.5 mg/dL Blood 10/23/2024 5:27 AM REHABILITATOR 10/23/2024 5:30 AM REHABILITATOR Raisa Scherer CURRICULUM DEVELOPMENT COORDINATOR LAB BLOOD ORDERABLES Jeaneth l Result Performing Organization Address City/[facility] Co de Phone Number [facility] [address] [address] [facility] [place] [address] * Magnesium (10/23/2024 5:27 AM REHABILITATOR) Magnesium 2.1 1.4 - 2.5 mg/dL Blood 10/23/2024 5:27 AM REHABILITATOR 10/23/2024 5:30 AM REHABILITATOR Raisa Scherer CURRICULUM DEVELOPMENT COORDINATOR LAB BLOOD ORDERABLES Jeaneth l Result Performing Organization Address City/[facility]/ZIP Co de Phone Number [facility] [address] [address] [facility] [place] [address] * (ABNORMAL) Comprehensive metabolic panel (10/23/2024 5:27 AM REHABILITATOR) Sodium 137 135 - 145 mmol/L Potassium, [...] Units/L [facility] Blood 10/23/2024 5:27 AM REHABILITATOR 10/23/2024 5:30 AM REHABILITATOR us Raisa Scherer CURRICULUM DEVELOPMENT COORDINATOR LAB BLOOD ORDERABLES Jeaneth mari Result [facility] [address] [address] Department [place] [address] * POCT glucose (10/23/2024 3:04 AM REHABILITATOR) Glucose, POC 84 70 - 199 mg/dL Blood 10/23/2024 3:04 AM REHABILITATOR 10/23/2024 3:04 AM REHABILITATOR Result [facility] Sylvester Engel MD LAB POCT ORDERABLES - DEVICE Final Result Performing Organization Address [facility] de Phone Number NIDIA [address] [address] [facility] [place] [address] * POCT glucose (10/22/2024 10:42 PM REHABILITATOR) Glucose, POC 101 70 - 199 mg/dL Blood 10/22/2024 10:4 2 PM REHABILITATOR 10/22/2024 10:42 PM REHABILITATOR Result [facility] Sylvester Engel MD LAB POCT ORDERABLES - DEVICE Final Result Performing Organization Address [facility] [place] [address] [address] [place] [address] * POCT glucose (10/22/2024 8:42 PM REHABILITATOR) Glucose, POC 114 70 - 199 mg/dL Blood 10/22/2024 8:42 PM REHABILITATOR 10/22/2024 8:42 PM REHABILITATOR Result [facility] Guru Miller MD LAB POCT ORDERABLES - DEVICE Final Result Performing Organization Address [facility] [place] [address] [address] [facility] [place] [address] * (ABNORMAL) DIABETES EYE EXAM (08/13/2024 9:40 AM CDT) Result [facility] Karin Dc MD HEALTH MAINTENANCE Edited [...] LAB URINE ORDERABLES Jeaneth l Result NIDIA [address] [address] [place] [address] * (ABNORMAL) Lipid panel (03/03/2024 9:29 AM [...] 03/03/2024 4:40 PM CDT us Bertha Pinto CURRICULUM DEVELOPMENT COORDINATOR LAB BLOOD ORDERABLES Jeaneth l Result NIDIA COTE [address] [address] [place] [address] * CT Abdomen Pelvis WO Contrast (12/05/2021 11:53 AM REHABILITATOR) Anatomical Region Laterality Modality Body N/A Computed Tomogra phy 12/05/2021 12:0 4 PM REHABILITATOR Impressions 12/05/2021 12:04 PM REHABILITATOR Bone windows show no suspicious lytic or blastic lesions. IMPRESSION: 1. 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 2. 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 Electronically signed by: Ryan Cameron M.D. Narrative 12/05/2021 12:04 PM REHABILITATOR EXAMINATION: Computed tomography of the abdomen/pelvis without [...] adeniform shape. There is atrophy of both [place] kidneys. Adjacent fat stranding is likely related [...] adeniform shape. There is atrophy of both [place] kidneys. Adjacent fat stranding is likely related [...] Recently Relevant to Health Maintenance Insurance MEDICARE [employer] Member Subscriber Plan / Payer ( fective 2021-Present) Name:Brandie Morrissey Jr. Relation to Subscriber:Self Name:Brandie Morrissey Jr. Payer ID:[id number] (NAIC) Group ID:[id number] Type: Address: [place] [phone] MEDICARE MEDICARE FOR LIFE Care Teams Tangled Yarn Worker Relationship Specialty Start Date End Date Mariza Carrion MD [address] [facility] [address] [place] [address] PCP - General Family Practice 03/05/23 Efren Hoyos MD Referring Physician Ophthalmology 06/16/19 Dank Hicks MD [address] [place], [place] [id number] Consulting Physician Cardiology 10/11/21
--- OUTSIDE RECORDS SUMMARY | 2025-01-05 11:04 | XMS_ITS | Clinical Summary ---
Author Organization [facility] Address [address] [place] [address] Care Team Providers Care Attraction Worker Name Role Phone Mariza Carrion MD Primary Care Provider Source Comments [facility],non-owned Affiliates and Associated Physician Practices is amultiple site organization consisting of ambulatory clinics and hospital sitesin [place], [place], [place] and [place]. This disclosure is being madepursuant to the Care Everywhere program and may not contain all information available regarding this patient. Last updated 18.[facility] Allergies No known active allergies Medications * [...] Use pads 5 times daily 09/19/2018 Active olzmx-8-jtxr ethyl esters (LOVAZA) 1 g capsule Take [...] FOR MUSCLE SPASM 09/03/2024 Active HYDROcodone-aceta minophen ([place]) 5-325 MG tablet 12/15/2023 Active Lokelma 10 [...] Department Care Team Description 11/04/2024 Orders Only [facility] - Urology [address], [address] [place] [id number] Anita Shay MA Urinary retention from Last [...] and heating? Not hard at all 04/06/2023 [facility] [place] of Occupat ional Health - Occupational Stress [...] Comments Blood Pressure 147/70 09/22/2024 8:55 AM SALES AND SERVICE TECHNICIAN Pulse 68 09/22/2024 8:55 AM SALES AND SERVICE TECHNICIAN Temperature 36.2 C (97.2 F) 09/22/2024 7:24 AM SALES AND SERVICE TECHNICIAN Respiratory Rate 15 09/22/2024 8:55 AM SALES AND SERVICE TECHNICIAN Oxygen Saturation 92% 09/22/2024 8:55 AM SALES AND SERVICE TECHNICIAN Inhaled Oxygen Concentration 25% 04/11/2023 7 :26 PM CDT Weight 87.9 kg (193 lb 12.6 oz) 09/22/2024 7:24 AM SALES AND SERVICE TECHNICIAN Height 170.2 cm (5' 7 ) 09/22/2024 7:24 AM SALES AND SERVICE TECHNICIAN Body Mass Index 30.35 09/22/2024 7:24 AM SALES AND SERVICE TECHNICIAN Plan of Treatment Upcoming Encounters Date Type Department Care Team (Late st Contact Info) Description 03/23/2025 8:00 AM CDT Appointment [facility] Health Vascular Services [address] [facility], [address] [place], [place] [phone] [place] [address] [address] [address] [place] [phone] Health Maintenance Due Date Last Done Comments [...] complete this topic MENINGOCOCCAL (Group B) VACCINE SHARED DECISION-MAKING Aged Out No longer eligible based on patient's age to complete this topic MENINGOCOCCAL GROUPS A/C/Y/W VACCINE Aged Out No longer eligible b ased on patient's age to complete this topic Medical Devices Implanted Type Area Tiler'S Assistant Device Identifier Shelf Expiration Date Model / Serial / Lot Mynxgrip Vascular Closure Device Implanted:Qty: 1 on 04/11/2023 by Matt Beyer DO at [facility] Right: Groin 01/19/2025 [id number] / [id number] / [id number] 5tch Cv 6x1cm Photofix Decellularized Implanted:Qty: 1 on 04/20/2023 by Matt Beyer DO at [facility] N/A: Other (See Descriptio n) [employer] 01/28/2024 [id number] / / [id number] Description:LEFT FEMORAL ART BARI Procedures Procedure Name Priority Date/Time Associated Diagnosis Comments HEPATITIS SCREEN ACUTE STAT 04/07/2023 8:19 AM CDT from Last 3 Months or Most Recently Relevant to Health Maintenance Results * HEPATITIS SCREEN ACUTE (04/07/2023 8:19 AM CDT) HAV Antibody IgM Non Reactive Non Reactive 04/07/2023 9:28 AM CDT [facility] HBsAg Non Reactive Non Reactive 04/07/2023 9:28 AM CDT [facility] HBc Antibody IgM Non Reactive Non Reactive 04/07/2023 9:28 AM CDT [facility] HCV Antibody Screen Non Reactive Non Reactive 04/07/2023 9:28 AM CDT [facility] Blood BLOOD SPECIMEN / Unknown Venipuncture / Unknown 04/07/2023 8:19 AM CDT 04/07/2023 8:31 AM CDT Narrative [facility] - 04/07/2023 9:28 AM CDT Non Reactive - Antibodies to Hepatitis C virus (HCV) were not detected, result does not exclude early acute HCV infection. Marito Rios MD LAB - CHEMISTRY RJ AYALA [facility] [address] [place] [address] from Last 3 Months or Most Recently Relevant to Health Maintenance Advance Directives Documents on File Type Date Recorded Patient Director Of Special Services Expl anation Adv Directive/Living Will/POA 05/02/2023 3:49 PM * Full Code (Latest Code Status on File) Date Activated Date Inactivated Comments 04/06/2023 9:49 AM 05/01/2023 4:44 PM Care Teams Attraction Worker Relationship Specialty Start Date End Date Mariza Carrion MD [address] [place] [address] PCP - General Family Medicine 08/26/18
--- OUTSIDE RECORDS SUMMARY | 2025-01-05 11:04 | XMS_ITS | Clinical Summary ---
Author Organization [facility] Address [address] [place] [phone] Phone Care Team Providers Care Felt Hat Inspector And Packer Name Role Phone Mariza Carrion MD Primary [...] dir 0 11/12/2017 Active ergocalciferol (VITAMIN D-2) 81489 units capsule Take 1 capsule (50,000 Units total) by mouth 2 (two) times a week. 28 capsule 3 03/27/2019 Active hydrALAZINE (APRESOLINE) 100 MG tablet TAKE 1 TABLET TWICE A DAY 180 tablet 4 04/30/2019 Active aspirin 81 MG chewable tablet one p.o. qd 05/23/2012 Active ergocalciferol (VITAMIN D-2) 10600 units capsule one p.o. capsule once a [...] 2012 Influenza Vaccine (#1) 2024 Care Teams Felt Hat Inspector And Packer Relationship Specialty Start Date End Date Mariza Carrion MD [address] [place] [address] PCP - General Internal Medicine 01/06/19
--- OUTSIDE RECORDS SUMMARY | 2025-01-05 11:04 | XMS_ITS | Clinical Summary ---
Author Organization [facility] Address [address] [place] [address] Care Team Providers Care Procedural Nurse Name Role Phone Murali Dawkins MD Primary Care Provider Encounters Date Type Department Care Team Description 10/28/2024 Documentation Only [facility], [address] [phone] Jeanie Graff from Last 3 Months Social [...] complete this topic Insurance MEDICARE Care Teams Procedural Nurse Relationship Specialty Start Date End Date Murali Dawkins MD [address] [place] [address] PCP - General Family Medicine 10/28/24
--- OUTSIDE RECORDS SUMMARY | 2025-01-05 11:04 | XMS_ITS | Referral Summary ---
Author Organization [facility] Address [address] [facility] [place] [address] Care Team Providers Care Kier Tender Name Role Phone Mariza Carrion MD Primary Care Provider Source Comments [facility],non-owned Affiliates and Associated Physician Practices is amultiple site organization consisting of ambulatory clinics and hospital sitesin [place], [place], [place] and [place]. This disclosure is being madepursuant to the Care Everywhere program and may not contain all information available regarding this patient. Last updated 18.[facility] SlamData Encounters Date Type Department Care Team Description 11/04/2024 Orders Only [facility] - Urology [address], [address] [place] [address] Anita Shay MA Urinary retention [...] Use pads 5 times daily 09/19/2018 Active vwtva-1-ivmt ethyl esters (LOVAZA) 1 g capsule Take [...] FOR MUSCLE SPASM 09/03/2024 Active HYDROcodone-aceta minophen ([place]) 5-325 MG tablet 12/15/2023 Active Lokelma 10 [...] and heating? Not hard at all 04/06/2023 [facility] [place] of Occupat ional Health - Occupational Stress [...] Comments Blood Pressure 147/70 09/22/2024 8:55 AM FRACTIONATION PLANT SUPERVISOR Pulse 68 09/22/2024 8:55 AM FRACTIONATION PLANT SUPERVISOR Temperature 36.2 C (97.2 F) 09/22/2024 7:24 AM FRACTIONATION PLANT SUPERVISOR Respiratory Rate 15 09/22/2024 8:55 AM FRACTIONATION PLANT SUPERVISOR Oxygen Saturation 92% 09/22/2024 8:55 AM FRACTIONATION PLANT SUPERVISOR Inhaled Oxygen Concentration 25% 04/11/2023 7 :26 PM CDT Weight 87.9 kg (193 lb 12.6 oz) 09/22/2024 7:24 AM FRACTIONATION PLANT SUPERVISOR Height 170.2 cm (5' 7 ) 09/22/2024 7:24 AM FRACTIONATION PLANT SUPERVISOR Body Mass Index 30.35 09/22/2024 7:24 AM FRACTIONATION PLANT SUPERVISOR Functional Status Functional Status Response Date of [...] Description 03/23/2025 8:00 AM CDT Appointment [facility] Vascular Services [address] [place] [address], [facility] [address] [place] [address] Dank George MD [address] [place] [address] [place] [phone] Medical Devices Implanted Type Area Computer Systems Software Architect Device Identifier Shelf Expiration Date Model / Serial / Lot Mynxgrip Vascular Closure Device Implanted:Qty: 1 on 04/11/2023 by Matt Beyer DO at [facility] Right: Groin 01/19/2025 [id number] / [id number] / [id number] 5tch Cv 6x1cm [employer] Decellularized Implanted:Qty: 1 on 04/20/2023 by Matt Beyer DO at [facility] N/A: Other (See Descriptio n) [employer] 01/28/2024 [id number] / / [id number] Description:LEFT FEMORAL ART BARI Procedures Procedure Name [...] AM CDT 04/07/2023 8:31 AM CDT Narrative [facility] - 04/07/2023 9:28 AM CDT Non Reactive - Antibodies to Hepatitis C virus (HCV) were not detected, result does not exclude early acute HCV infection. 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
--- OUTSIDE RECORDS SUMMARY | 2025-01-05 11:04 | XMS_ITS | Patient Health Summary ---
Author Organization [facility] [employer] Address [address] [place] [address] Care Team Providers Care Tumbler Tender Name Role Phone Mariza Carrion MD Primary Care Provider Note from [facility],non-owned Affiliates and Associated Physician Practices is amultiple site organization consisting of ambulatory clinics and hospital sitesin [place], [place], [place] and [place]. This disclosure is being madepursuant to the Care Everywhere program and may not contain all information available regarding this patient. Last updated 18.[facility] [employer] Allergies No known active allergies Medications * [...] 09/19/2018) Use pads 5 times daily * yhhxx-2-vwff ethyl esters (LOVAZA) 1 g capsule(Started 02/23/2020) [...] as needed FOR MUSCLE SPASM * HYDROcodone-acetaminophen ([place]) 5-325 MG tablet(Started 12/15/2023) * Lokelma 10 [...] and heating? Not hard at all 04/06/2023 [facility] [place] of Occupat ional Health - Occupational Stress [...] place to sleep or slept in a mcc (including now)? No 04/06/2023 Sex and Gender Information Value Date Recorded Sex Assigned at Not on file Gender Identity Not on file Sexual Orientation Not on file Last Filed Vital Signs Vital Sign Reading Time Taken Comments Blood Pressure 147/70 09/22/2024 8:55 AM RADIO MECHANIC APPRENTICE Pulse 68 09/22/2024 8:55 AM RADIO MECHANIC APPRENTICE Temperature 36.2 C (97.2 F) 09/22/2024 7:24 AM RADIO MECHANIC APPRENTICE Respiratory Rate 15 09/22/2024 8:55 AM RADIO MECHANIC APPRENTICE Oxygen Saturation 92% 09/22/2024 8:55 AM RADIO MECHANIC APPRENTICE Inhaled Oxygen Concentration 25% 04/11/2023 7 :26 PM CDT Weight 87.9 kg (193 lb 12.6 oz) 09/22/2024 7:24 AM RADIO MECHANIC APPRENTICE Height 170.2 cm (5' 7 ) 09/22/2024 7:24 AM RADIO MECHANIC APPRENTICE Body Mass Index 30.35 09/22/2024 7:24 AM RADIO MECHANIC APPRENTICE Medical Devices Implanted Type Area Construction Electrician Device Identifier Shelf Expiration Date Model / Serial / Lot Mynxgrip Vascular Closure Device Implanted:Qty: 1 on 04/11/2023 by Matt Beyer DO at [facility] Right: Groin 01/19/2025 [id number] / [id number] / [id number] 5tch Cv 6x1cm Photofix Decellularized Implanted:Qty: 1 on 04/20/2023 by Matt Beyer DO at [facility] N/A: Other (See Descriptio n) [employer]ife 01/28/2024 [id number] / / [id number] Description:LEFT FEMORAL ART BARI Procedures * CARDIAC RHYTHM STRIP ORDER(Performed 09/23/2024) * IR ANGIO AV SHUNT IMAGING(Performed 09/22/2024) Performed for ESRD (end stage renal disease) ([facility]) * CARDIAC RHYTHM STRIP ORDER(Performed 06/10/2024) * IR ANGIO AV SHUNT IMAGING(Performed 06/09/2024) Performed for ESRD (end stage renal disease) ([facility]) * CARDIAC RHYTHM STRIP ORDER(Performed 01/29/2024) * CARDIAC RHYTHM STRIP ORDER(Performed 09/25/2023) * IR ANGIO AV SHUNT IMAGING(Performed 09/24/2023) Performed for Encounter regarding vascular access for dialysis for end-stage renal disease ([facility]) * CARDIAC RHYTHM STRIP ORDER(Performed 06/01/2023) * IR ANGIO AV SHUNT IMAGING(Performed 05/30/2023) Performed for Encounter regarding vascular access for dialysis for end-stage renal disease ([facility]) * VAS LEFT ARTERIAL DUPLEX LE(Performed 05/17/2023) [...] 04/20/2023) * ENDOTRACHEAL TUBE NOTE(Performed 04/20/2023) * GA TEAEC W/GRAFT SUPERFICIAL FEMORAL ART(Performed 04/20/2023) * PTT(Performed 04/20/2023) * PT-INR(Performed 04/20/2023) * TYPE + SCREEN PANEL(Performed 04/20/2023) * CBC W AUTO DIFFERENTIAL(Performed 04/20/2023) * RENAL FUNCTION PANEL(Performed 04/20/2023) * GLUCOSE - POINT OF CARE(Performed 04/19/2023) * GLUCOSE - POINT OF CARE(Performed 04/19/2023) * HYBRID IMAGING(Performed 04/19/2023) Performed for PVD (peripheral vascular disease) ([facility]) * ENDOTRACHEAL TUBE NOTE(Performed 04/19/2023) * HEMODIALYSIS [...] for PVD (peripheral vascular disease) ([facility]) * STRESS TEST(Performed 04/13/2023) Performed for PVD (peripheral vascular disease) ([facility]) * GLUCOSE - POINT OF CARE(Performed 04/13/2023) [...] 04/11/2023) Performed for Cardiac arrest ([facility]) * GLUCOSE - POINT OF CARE(Performed 04/11/2023) * LACTIC ACID BLOOD(Performed 04/11/2023) * TROPONIN I(Performed 04/11/2023) * EKG 12-LEAD(Performed 04/11/2023) Performed for Cardiac arrest ([facility]) * TROPONIN I(Performed 04/11/2023) * COAGULATION PANEL [...] ESRD (end stage renal disease) ([facility]) * CARDIAC RHYTHM STRIP ORDER(Performed 06/12/2022) * IR ANGIO AV SHUNT IMAGING(Performed 05/31/2022) Performed for Complication of arteriovenous dialysis fistula, initial encounter * CARDIAC RHYTHM STRIP ORDER(Performed 02/02/2022) * IR ANGIO AV SHUNT IMAGING(Performed 01/25/2022) Performed for ESRD (end stage renal disease) ([facility]) * CARDIAC RHYTHM STRIP ORDER(Performed 10/03/2021) * IR ANGIO AV SHUNT IMAGING(Performed 09/28/2021) Performed for ESRD (end stage renal disease) ([facility]) * CARDIAC RHYTHM STRIP ORDER(Performed 06/07/2021) * [...] ESRD (end stage renal disease) ([facility]), Complication of arteriovenous dialysis fistula,initial encounter * CARDIAC RHYTHM STRIP ORDER(Performed 06/17/2019) * IR ANGIO AV SHUNT IMAGING(Performed 06/04/2019) Performed for Complication of arteriovenous dialysis fistula, initial encounter, ESRD (end stage renal disease) ([facility]) * VAS DIALYSIS EXIST ACCESS SCAN(Performed 01/27/2019) Performed for ESRD (end stage renal disease) ([facility]) * GLUCOSE - POINT OF CARE(Performed 09/17/2018) * ARTERIOVENOUS FISTULA TRANSPOSITION / SUPERFICIALIZATION(Performed 09/17/2018) * GLUCOSE - POINT OF CARE(Performed 09/17/2018) * BASIC METABOLIC PANEL (CALCIUM TOTAL)(Performed 09/17/2018) Performed for Preoperative examination * VAS DIALYSIS EXIST ACCESS SCAN(Performed 08/26/2018) Performed for ESRD (end stage renal disease) ([facility]) * VAS DIALYSIS EXIST ACCESS SCAN(Performed 07/22/2018) Performed for ESRD (end stage renal disease) ([facility]) * CREATE FISTULA A-V(Performed 07/09/2018) * GLUCOSE - POINT OF CARE(Performed 07/09/2018) * BASIC METABOLIC PANEL (CALCIUM TOTAL)(Performed 07/09/2018) Performed for Preoperative examination * VAS BILAT MAPPING FOR HEMODIALYSIS(Performed 06/03/2018) Performed for ESRD (end stage renal disease) ([facility]) * ANGIOGRAM/ARTERIOGRAM Results * CARDIAC RHYTHM STRIP ORDER (09/23/2024 9:57 PM RADIO MECHANIC APPRENTICE) Only the most recent of19 resultswithin the time period is included. Narrative 09/23/2024 9:57 PM RADIO MECHANIC APPRENTICE Ordered by an unspecified provider. Scanned Document CARDIAC SERVICES ORD ERABLES * IR Angio Av Shunt Imaging (09/22/2024 8:41 AM RADIO MECHANIC APPRENTICE) Only the most recent of16 resultswithin the time period is included. Anatomical Region Laterality Modality Lower Extremity, Upper Extremity, Chest X-Ray Angiography Narrative 09/22/2024 8:43 AM RADIO MECHANIC APPRENTICE Dank George MD 09/22/2024 8:46 AM [facility] [place] Brandie Morrissey 1945 DATE OF PROCEDURE: 09/22/2024 [...] stent. Tract was dilated and a 6 Telugu sheath was inserted. Patient was given IV [...] Note Juan A Bassett MD - 05/17/2023 [facility] [place] [address], [address] [place] [address] Lower Extremity Arterial Ultrasound Report Pat.Name: BRANDIE MORRISSEY JR Pat.ID: [id number] .Date: 05/17/2023 Refer.MD: KENN LACY Exam Time: 12:58:00 PM Study Type:LE Arterial Age: 7 1945,77Y Sex: MALE Sonogrphr: Liz Diana RVT Pat. Stat.:Outpatient CPT - 4: 37898 Reason for Study: Follow up surgery History / Clinical: Hypertension, Diabetes, Coronary artery disease, Hyperlipidemia Procedures: Lower Extremity Arterial Duplex - Left Race: [facility] Visit ID: [id number] ++++++++++++++++++++++++++++++++++++ SUMMARY: ++++++++++++++++++++++++++++++++++++ Severe left lower extremity peripheral vascular disease ++++++++++++++++++++++++++++++++++++ FINDINGS: ++++++++++++++++++++++++++++++++++++ Procedure: B-mode imaging, color flow Doppler and spectral analysis were used to examine the arteries of the left lower extremity. Study Quality: This study is of adequate technical quality. Lt Leg: Arterial doppler waveforms of the left SENIOR QUALITATIVE RESEARCHER are biphasic. Arterial doppler waveforms of the left SFA are monophasic and appears to be near occlusion. Arterial doppler waveforms of the left lower calf arteries are monophasic. Calcified plaque visualized in the most of Arteries in Left Leg. ++++++++++++++++++++++++++++++++++++ MEASUREMENTS: ++++++++++++++++++++++++++++++++++++ DOPPLER Left SENIOR QUALITATIVE RESEARCHER Prox SENIOR QUALITATIVE RESEARCHER Prox PSV 119 cm/s Left ISELA Dist [...] Left Profunda Profunda PSV 55 cm/s Left CHANGEOVER OPERATOR Distal CHANGEOVER OPERATOR Distal PSV 26 cm/s CHANGEOVER OPERATOR Distal EDV 16 cm/s Left CHANGEOVER OPERATOR Mid CHANGEOVER OPERATOR Mid PSV 22 cm/s Left CHANGEOVER OPERATOR Prox CHANGEOVER OPERATOR Prox PSV 20 cm/s Left SFA Dist [...] Juan A Bassett MD Maria Isabel Barrios HEEL SPRAYER FIRST-ARTIFICIAL LEATHER CALENDER OPERATOR VASCULAR LAB O RDERABLES * APHERESIS/TRANSFUSION ORDER (05/02/2023 3:59 PM CDT) Narrative 05/02/2023 3:59 PM CDT Ordered by an unspecified provider. Scanned Document NURSING - VITAL SIGN S AND ASSESSMENT * (ABNORMAL) GLUCOSE - POINT OF CARE (05/01/2023 1:21 PM CDT) Only the most recent of97 resultswithin the time period is included. [facility] Glucose WB/POC 121(H) 70 - 106 mg/dL 05/01/2023 3:14 PM CDT [facility] Specimen Type Cap Fingerstick 2022 3:14 PM CDT [facility] Blood BLOOD SPECIMEN / Unknown 05/01/2023 1:21 PM CDT 05/01/2023 3:14 PM CDT Jm Waters MD LAB - POINT OF CARE ORDERABLES [facility] [address] [place] [address] * (ABNORMAL) CBC W/O DIFFERENTIAL (05/01/2023 8:34 AM CDT) Only the most recent of9 resultswithin the time period is included. [facility] WBC 8.8 4.4 - 10.7 x10E9/L 05/01/2023 8:40 AM CDT [facility] RBC 2.67(L) 3.80 - 5.40 x10E12/L 05/01/2023 8:40 AM CDT [facility] Hemoglobin 7.9(L) 12.0 - 17.6 gm/dL 05/01/2023 8:40 AM CDT [facility] Hematocrit 23.3(L) 35.2 - 51.7 % 05/01/2023 8:40 AM CDT [facility] MCV 87.3 80.7 - 98.3 fl 05/01/2023 8:40 AM CDT [facility] MCH 29.6 26.7 - 34.0 pg 05/01/2023 8:40 AM CDT [facility] MCHC 33.9 30.8 - 35.9 gm/dL 05/01/2023 8:40 AM CDT [facility] Platelet Count 288 153 - 416 x10E9/L 05/01/2023 8:40 AM CDT [facility] RDW-CV 16.6(H) 12.1 - 14.9 % 05/01/2023 8:40 AM CDT [facility] MPV 10.6 9.4 - 12.9 fl 05/01/2023 8:40 AM CDT [facility] Blood BLOOD SPECIMEN / Unknown Venipuncture / Unknown 05/01/2023 8:34 AM CDT 05/01/2023 8:34 AM CDT Karma Delcid MD LAB - HEMATOLOGY ORD ERABLES [facility] [address] [place] [address] * (ABNORMAL) RENAL FUNCTION PANEL (05/01/2023 8:34 AM CDT) Only the most recent of15 resultswithin the time period is included. Glucose 139(H) 70 - 105 mg/dL 05/01/2023 8:57 AM CDT [facility] Sodium 122(LL) 136 - 145 mmol/L 05/01/2023 8:57 AM CDT [facility] Potassium 4.5 3.5 - 5.1 mmol/L 05/01/2023 8:57 AM CDT [facility] Chloride 88(L) 98 - 107 mmol/L 05/01/2023 8:57 AM CDT [facility] CO2 22(L) 23 - 31 mmol/L 05/01/2023 8:57 AM CDT [facility] Calcium 10.2 8.4 - 10.4 mg/dL 05/01/2023 8:57 AM CDT [facility] Anion Gap 12 8 - 18 mmol/L 05/01/2023 8:57 AM CDT [facility] BUN 62(H) 8.4 - 25.7 mg/dL 05/01/2023 8:57 AM CDT [facility] Creatinine 8.72(H) 0.72 - 1.25 mg/dL 05/01/2023 8:57 AM CDT [facility] Albumin 3.3 3.2 - 4.6 gm/dL 05/01/2023 8:57 AM CDT [facility] Phosphorus 5.5(H) 2.3 - 4.7 mg/dL 05/01/2023 8:57 AM CDT [facility] eGFR by CKD-EPI 6(L) >=90 mL/min/1.7 3 m2 05/01/2023 8:57 AM CDT [facility] Blood BLOOD SPECIMEN / Unknown Venipuncture / Unknown 05/01/2023 8:34 AM CDT 05/01/2023 8:34 AM CDT Karma Delcid MD LAB - CHEMISTRY RJ AYALA Performing Organization Address [facility]/ZIP Co de Phone Number [facility] [address] [place], [place] [id number] * (ABNORMAL) FOLATE (04/27/2023 10:47 AM CDT) Folate 5.1(L) 7.0 - 31.4 ng/mL 04/27/2023 12:01 PM CDT [facility] Blood BLOOD SPECIMEN / Unknown Venipuncture / Unknown 04/27/2023 10:47 AM CDT 04/27/2023 11:07 AM CDT Karma Delcid MD LAB - CHEMISTRY ORDShahida AYALA Performing Organization Address [facility] Co de Phone Number [facility] [address] [place] [address] * (ABNORMAL) IRON + TRANSFERRIN PANEL (04/27/2023 10:47 AM CDT) Iron 46(L) 65 - 175 ug/dL 04/27/2023 11:26 AM CDT [facility] Transferrin 175 163 - 344 mg/dL 04/27/2023 11:26 AM CDT [facility] TIBC Calculated 219(L) 240 - 450 ug/dL 04/27/2023 11:26 AM CDT [facility] Iron Saturation % 21 20 - 50 % 04/27/2023 11:26 AM CDT [facility] Blood BLOOD SPECIMEN / Unknown Venipuncture / Unknown 04/27/2023 10:47 AM CDT 04/27/2023 11:07 AM CDT Karma Delcid MD LAB - CHEMISTRY RJ ARSLANMARIA ELENA Performing Organization Address [facility]/ZIP Co de Phone Number [facility] [address] [place] [address] * (ABNORMAL) FERRITIN (04/27/2023 10:47 AM CDT) Pathologist [facility] Ferritin 1,435(H) 22 - 275 ng/mL 04/27/2023 12:01 PM CDT [facility] Blood BLOOD SPECIMEN / Unknown Venipuncture / Unknown 04/27/2023 10:47 AM CDT 04/27/2023 11:07 AM CDT Karma Delcid MD LAB - CHEMISTRY RJ AYALA Performing Organization Address [facility] de Phone Number [facility] [id number] [place] [id number] * (ABNORMAL) BASIC METABOLIC PANEL (CALCIUM TOTAL) (04/27/2023 4:54 AM CDT) Only the most recent of11 resultswithin the time period is included. Pathologist [facility] Glucose 118(H) 70 - 105 mg/dL 04/27/2023 5:54 AM CDT [facility] Sodium 125(L) 136 - 145 mmol/L 04/27/2023 5:54 AM CDT [facility] Potassium 5.5(H) 3.5 - 5.1 mmol/L 04/27/2023 5:54 AM CDT [facility] Chloride 89(L) 98 - 107 mmol/L 04/27/2023 5:54 AM CDT [facility] CO2 25 23 - 31 mmol/L 04/27/2023 5:54 AM CDT [facility] Calcium 9.4 8.4 - 10.4 mg/dL 04/27/2023 5:54 AM CDT [facility] Anion Gap 11 8 - 18 mmol/L 04/27/2023 5:54 AM CDT [facility] BUN 31(H) 8.4 - 25.7 mg/dL 04/27/2023 5:54 AM CDT [facility] Creatinine 5.34(H) 0.72 - 1.25 mg/dL 04/27/2023 5:54 AM CDT [facility] eGFR by CKD-EPI 11(L) >=90 mL/min/1.7 3 m2 04/27/2023 5:54 AM CDT [facility] Blood BLOOD SPECIMEN / Unknown Venipuncture / Unknown 04/27/2023 4:54 AM CDT 04/27/2023 5:31 AM CDT Karma Delcid MD LAB - CHEMISTRY RJ AYALA [facility] [address] [place] [id number] * TRANSFUSE RED BLOOD CELL LEUKOREDUCED UNIT(S) (04/22/2023 3:02 AM CDT) Jacquelyn Shetty MD NURSING - BLOOD PROD TRANSFUSION * PREPARE (CROSSMATCH) RBC UNIT(S), 2 Units (04/21/2023 11:53 PM CDT) Unit Description AS1 LR PRBC [facility] BLOOD BANK Unit ABO O [facility] BLOOD B[facility] Unit Rh POS [facility] B[facility]OD [facility] Product Number R02 [facility] BLOOD B[facility] Unit Donor # [id number] [facility] C BLOOD BANK Unit Status transfused [facility] BL OOD B[facility] Product Code [id number] [facility] Blood Type Barcode 5100 [facility] B[facility] Expiration Date D [facility] BLOOD BANK Unit Description AS1 LR PRBC [facility] BLOOD BANK Unit ABO O [facility] BLOOD BANK Unit Rh POS DP BLOOD BANK Product Number R02 DP BLOOD BANK Unit Donor # [id number] [facility] C BLOOD BANK Unit Status transfused [facility] BL OOD BANK Product Code [id number] [facility] BL OOD BANK Blood Type Barcode 5100 [facility] BLOOD BANK Expiration Date D [facility] BLOOD BANK Blood Bank BLOOD SPECIMEN / Unknown 04/20/2023 1:15 PM CDT Silvia Rincon MD LAB - BLOOD BANK ORDERABLES [facility] [address] [phone] * TRANSFUSE RED BLOOD CELL LEUKOREDUCED UNIT(S) (04/20/2023 7:54 PM CDT) Jacquelyn Shetty MD NURSING - BLOOD PROD TRANSFUSION * PATHOLOGY TISSUE EXAM (STL) (04/20/2023 7:41 PM CDT) Case Report Surgical Pathology Report Case: [id number] Authorizing Provider: Matt Beyer DO Collected: 04/20/2023 07:41 PM Ordering Location: [facility] Received: 04/23/2023 06:38 AM Pathologist: Tl Doss MD Specimen: Artery Athero Plaque, LEFT ILIOFEMORAL ENDARTERECTOMY 04/25/2023 9:27 AM T [facility] Final Diagnosis A. Left iliofemoral, endarterectomy: -- Calcific atherosclerosis 04/25/2023 9:27 AM T [facility] Clinical History Peripheral arterial disease 04/25/2023 9:27 AM T [facility] Gross Description Received in formalin in a sterile container labeled Brandei Morrissey Jr, left iliofemoral endarterectomy, are multiple yellow-corbin atherosclerotic plaques of tissue measuring 2.3 x 1.3 x 0.6 cm in aggregate. Driver Recruiter sections are submitted in cassette A1 for decalcification. CH/eh 04/25/2023 9:27 AM T [facility] Microscopic Description Microscopic examination substantiates the above cited diagnosis. MC 04/25/2023 9:27 AM T [facility] Disclaimer All histochemical and/or immunohistochemical results are interpreted with controls that demonstrate appropriate staining reactions before reporting results. Note on use of immunocytochemistry reagents: This test was developed and its performance characteristic determined by [facility], Department of Laboratory Medicine. It has [...] interpreted with caution. 04/25/2023 9:27 AM CDT [facility] Embedded Images 04/25/2023 9:27 AM CDT [facility] Pathology/Cytolo gy ATHEROMA / Unknown 04/20/2023 7:41 PM CDT 04/23/2023 6:38 AM CDT Matt Beyer DO LAB - PATHOLOGY/CY TOLOGY ORDERABLES [facility] [address] [place] [address] * ETT LINE PERFORMABLE (04/20/2023 6:09 PM CDT) Narrative Akhil Sanders APRN-CRNA - 04/20/2023 6:09 PM CDT Akhil Sanders APRN-CRNA 04/20/2023 6:09 PM Endotracheal Tube Placement: Patient Location: OR. Intubation Event Date/Time: 04/20/2023 6:01 PM Procedure: intubation ([id number]). Procedure Section: Sedation: under general anesthesia. Indications [...] - 38.4 sec 04/20/2023 1:50 PM CDT [facility] Blood BLOOD SPECIMEN / Unknown Venipuncture / Unknown 04/20/2023 1:32 PM CDT 04/20/2023 1:38 PM CDT Narrative [facility] - 04/20/2023 1:50 PM CDT Heparin Therapeutic Range for PTT: 69.0 - 110.0 seconds. Maria Isabel Barrios HEEL SPRAYER FIRST-ARTIFICIAL LEATHER CALENDER OPERATOR LAB - COAGULAT ION ORDERABLES Performing Organization Address [facility] Co de Phone Number [facility] [address] [place] [address] * PT-INR (04/20/2023 1:32 PM CDT) Only the most recent of2 resultswithin the time period is included. PT 14.2 12.1 - 14.8 sec 04/20/2023 1:50 PM CDT [facility] INR 1.1 0.9 - 1.1 04/20/2023 1:50 PM CDT [facility] Blood BLOOD SPECIMEN / Unknown Venipuncture / Unknown 04/20/2023 1:32 PM CDT 04/20/2023 1:38 PM CDT Narrative [facility] - 04/20/2023 1:50 PM CDT Conventional Warfarin Anticoagulant Therapy: INR Reference Range: 2.0-3.0 Intensive Warfarin Anticoagulant Therapy: INR Reference Range: 2.5-3.5 Maria Isabel Barrios HEEL SPRAYER FIRST-ARTIFICIAL LEATHER CALENDER OPERATOR LAB - COAGULAT ION ORDERABLES Performing Organization Address [facility]/ZIP Co de Phone Number [facility] [address] [place] [address] * TYPE + SCREEN PANEL (04/20/2023 1:10 PM CDT) Only the most recent of3 resultswithin the time period is included. ABO Rh O POS 04/20/2023 1:59 PM CDT [facility] Comment:History checked. Antibody Screen NEG 1:59 PM CDT [facility] Blood Bank BLOOD SPECIMEN / Unknown Venipuncture / Unknown 04/20/2023 1:10 PM CDT 04/20/2023 1:15 PM CDT Silvia Rincon MD LAB - BLOOD BANK ORDERABLES [facility] [id number] [phone] * (ABNORMAL) CBC W AUTO DIFFERENTIAL (04/20/2023 1:10 PM CDT) Only the most recent of15 resultswithin the time period is included. WBC 7.2 4.4 - 10.7 x10E9/L 04/20/2023 1:21 PM CDT [facility] WBC Corrected 04/20/2023 1:21 PM CDT [facility] RBC 2.18(L) 3.80 - 5.40 x10E12/L 04/20/2023 1:21 PM CDT [facility] Hemoglobin 6.9(L) 12.0 - 17.6 gm/dL 04/20/2023 1:21 PM CDT [facility] Hematocrit 20.4(L) 35.2 - 51.7 % 04/20/2023 1:21 PM CDT [facility] MCV 93.6 80.7 - 98.3 fl 04/20/2023 1:21 PM CDT [facility] MCH 31.7 26.7 - 34.0 pg 04/20/2023 1:21 PM CDT [facility] MCHC 33.8 30.8 - 35.9 gm/dL 04/20/2023 1:21 PM CDT [facility] Platelet Count 212 153 - 416 x10E9/L 04/20/2023 1:21 PM CDT [facility] RDW-CV 14.1 12.1 - 14.9 % 04/20/2023 1:21 PM CDT [facility] MPV 10.9 9.4 - 12.9 fl 04/20/2023 1:21 PM CDT [facility] Neutrophils % 80.3(H) 44.0 - 73.0 % 04/20/2023 1:21 PM CDT [facility] Lymphocytes % 5.7(L) 20.0 - 43.0 % 04/20/2023 1:21 PM CDT [facility] Monocytes % 11.7 5.0 - 13.0 % 04/20/2023 1:21 PM CDT [facility] Eosinophils % 1.0 0.0 - 6.0 % 04/20/2023 1:21 PM CDT [facility] Basophils % 0.7 0.0 - 2.0 % 04/20/2023 1:21 PM CDT [facility] Immature Granulocytes 0.6 0 - 1 % 04/20/2023 1:21 PM CDT [facility] Neutrophil Absolute 5.75 2.01 - 7.14 x10E9/L 04/20/2023 1:21 PM CDT [facility] Lymphocytes Absolute 0.41(L) 1.07 - 3.94 x10E9/L 04/20/2023 1:21 PM CDT [facility] Monocytes Absolute 0.84 0.26 - 1.07 x10E9/L 04/20/2023 1:21 PM CDT [facility] Eosinophils Absolute 0.07 0 - 0.47 x10E9/L 04/20/2023 1:21 PM CDT [facility] Basophils Absolute 0.05 0 - 0.08 x10E9/L 04/20/2023 1:21 PM CDT [facility] Immature Granulocytes Absolute 0.04 0.00 - 0.06 x10E9/L 04/20/2023 1:21 PM CDT [facility] nRBC Auto 0 /100 WBC 04/20/2023 1:21 PM CDT [facility] Blood BLOOD SPECIMEN / Unknown Venipuncture / Unknown 04/20/2023 1:10 PM CDT 04/20/2023 1:15 PM CDT Silvia Rincon MD LAB - HEMATOLOGY ORDERABLES [facility] [address] [place] [address] * HYBRID IMAGING (04/19/2023 5:30 PM CDT) Only the most recent of2 resultswithin the time period is included. Narrative [facility] - 04/23/2023 2:10 PM CDT Please see the progress note. Matt Beyer DO CARDIAC FARM SERVICE ADVISER R ADIANT [facility] [address] [place] [address] * ETT LINE PERFORMABLE (04/19/2023 3:58 PM CDT) Narrative Bradley Sharma APRN-CRNA - 04/19/2023 3:58 PM CDT Bradley Sharma APRN-CRNA 04/19/2023 3:59 PM Endotracheal Tube Placement: Patient Location: [place]. Intubation Event Date/Time: 04/19/2023 3:54 PM Procedure: intubation ([id number]). Procedure Section: Sedation: under general anesthesia. Indications [...] Daly MD - 04/19/2023 2:15 PM CDT Dakn Daly MD 04/19/2023 2:15 PM Arterial Line Placement Procedure Note Patient Location: Holding Area. Procedure: Arterial Line ([id number]). Procedure Section Indications: continuous blood pressure monitoring [...] - 34 U/L 04/19/2023 6:19 AM CDT [facility] Protein Total 6.2(L) 6.4 - 8.3 gm/dL 04/19/2023 6:19 AM CDT [facility] Albumin 3.4 3.2 - 4.6 gm/dL 04/19/2023 6:19 AM CDT [facility] Bilirubin Total 0.4 0.2 - 1.2 mg/dL 04/19/2023 6:19 AM CDT [facility] eGFR by CKD-EPI 7(L) >=90 mL/min/1.7 3 m2 04/19/2023 6:19 AM CDT [facility] Blood BLOOD SPECIMEN / Unknown Venipuncture / Unknown 04/19/2023 5:15 AM CDT 04/19/2023 5:49 AM CDT Maria Isabel Barrios APRN-ARTIFICIAL LEATHER CALENDER OPERATOR LAB - CHEMISTR Y ORDERABLES Performing Organization Address [facility] Co de Phone Number [facility] [address] [place] [address] * (ABNORMAL) PHOSPHORUS BLOOD (04/19/2023 5:15 AM CDT) Only the most recent of7 resultswithin the time period is included. Phosphorus 7.3(H) 2.3 - 4.7 mg/dL 04/19/2023 6:15 AM CDT [facility] Blood BLOOD SPECIMEN / Unknown Venipuncture / Unknown 04/19/2023 5:15 AM CDT 04/19/2023 5:49 AM CDT Adele Cabrera MD LAB - CHEMISTRY ORDE RABLES Performing Organization Address [facility] Co de Phone Number [facility] [address] [place] [address] * MAGNESIUM BLOOD (04/19/2023 5:15 AM CDT) Only the most recent of12 resultswithin the time period is included. Magnesium 2.2 1.6 - 2.6 mg/dL 04/19/2023 6:15 AM CDT [facility] Blood BLOOD SPECIMEN / Unknown Venipuncture / Unknown 04/19/2023 5:15 AM CDT 04/19/2023 5:49 AM CDT Adele Cabrera MD LAB - CHEMISTRY RJ AYALA [facility] Organization Address City/State/ZIP Co de Phone Number [facility] [address] [place] [address] * (ABNORMAL) ECHO COMPLETE W CONTRAST (04/18/2023 12:35 PM CDT) BSA [id number] m2 [facility] CV FUJI PACS LV biplane [...] I PACS LV RWT 0.473 [facility] CV [facility] I PACS LV An A2C 7.895 cm [facility] CV F UJI PACS LV An A4C 7.563 cm [facility] CV F UJI PACS LV mass m-mode 203.74 88 - 224 g [facility] CV [facility]I PACS LV mass index m-mode 98.45 49 - 115 g/m2 [facility] E pk khris 183.498 cm/s [facility] CV F UJI PACS MV avg E/e' ratio 43.09 SS M CV FUJI PACS MV A pk khris 107.563 cm/s [facility] CV F [facility]I PACS MV E A ratio 1.71 [facility]' lateral khris 3.961 cm/s SS [facility] DT 252 ms [facility] CV [facility] I PACS MV E' septal khris 4.604 cm/s [facility] E/e' septal 39.858 [facility] C V FUJI PACS MV E/e' lateral 46.329 [facility] TR pk khris 273.9 cm/s [facility] CV [facility] I PACS LVOT pk khris 0.89 [...] 30 mmHg SSM CV FU JI PACS GA pk grad 7 mmHg [facility] CV FU JI PACS PV pk khris 136.348 cm/s S[facility] CV FUJ I PACS PV pk grad 7 mmHg SSM CV FU JI PACS [id number] 6.907 cm SSM CV FUJ I PACS [id number] 6.723 cm SSM CV FUJ I PACS [...] Normal, Adequate platelets 04/17/2023 8:42 AM CDT [facility] Poikilocytosis 1+(A) None 04/17/2023 8:42 AM CDT [facility] Crenated Cells 1+(A) None 04/17/2023 8:42 AM CDT [facility] Blood BLOOD SPECIMEN / Unknown Venipuncture / Unknown 04/17/2023 5:43 AM CDT 04/17/2023 6:03 AM CDT Adele Cabrera MD LAB - HEMATOLOGY ORD ERABLES Performing Organization Address City/[facility] Co de Phone Number [facility] [address] [place] [address] * EKG 12-LEAD (04/13/2023 2:41 PM CDT) Only the most recent of3 resultswithin the time period is included. Ventricular Rate 75 BPM [facility] Atrial Rate 75 BPM [facility] P-R Interval 236 ms [facility] QRS Duration ms 142 ms [facility] Q-T Interval ms 514 ms [facility] QTC Calculation (Bezet) 573 ms [facility] Calculated P [place] 74 degrees [facility] Calculated R [place] -20 degrees [facility] Calculated T [place] -152 degrees [facility] Interpretation EKG Sinus rhythm with 1st degree A-V block with frequent Premature ventricular complexes Right bundle branch block T wave abnormality, consider lateral ischemia Abnormal ECG No previous ECGs available Confirmed by WILLIAM KIRBY MD ([id number]) on 04/16/2023 5:21:48 PM [facility] 04/13/2023 2:41 PM CDT 04/16/2023 5:21 PM CDT Rico Gallagher MD ECG ORDERABLES Performing Organization Address [facility] Co de Phone Number [facility] M[facility] * NM MYOCARD PERF REST STRESS [...] mCi of Tc99m Tetrofosmin at rest and 78kMaSf24s Tetrofosmin at stress. 0.4 mg of Lexiscan [...] resultswithin the time period is included. Pathologist [facility] Troponin I 0.948(HH) <0.038 ng/mL 04/12/2023 12:45 PM CDT [facility] Blood BLOOD SPECIMEN / Unknown Venipuncture / Unknown 04/12/2023 12:02 PM CDT 04/12/2023 12:11 PM CDT Parveen Sewell MD LAB - CHEMISTRY RJ AYALA [facility] [address] [place] [address] * TSH REFLEX FREE T4 (04/12/2023 3:52 AM CDT) Pathologist [facility] TSH 1.592 0.350 - 4.940 uIU/mL 04/12/2023 5:04 AM CDT [facility] Blood BLOOD SPECIMEN / Unknown Venipuncture / Unknown 04/12/2023 3:52 AM CDT 04/12/2023 4:04 AM CDT Parveen Sewell MD LAB - CHEMISTRY RJ AYALA Performing Organization Address [facility] Co de Phone Number [facility] [address] [place] [address] * AMMONIA (04/12/2023 3:52 AM CDT) Ammonia 19 18 - 72 umol/L 04/12/2023 4:19 AM CDT [facility] Blood BLOOD SPECIMEN / Unknown Venipuncture / Unknown 04/12/2023 3:52 AM CDT 04/12/2023 4:02 AM CDT Parveen Sewell MD LAB - CHEMISTRY RJ AYALA Performing Organization Address [facility] de Phone Number [facility] [address] [place] [address] * LACTIC ACID BLOOD (04/11/2023 11:37 PM CDT) Only the most recent of3 resultswithin the time period is included. Lactic Acid 0.50 <=2 mmol/L 04/12/2023 12:00 AM CDT [facility] Blood BLOOD SPECIMEN / Unknown Venipuncture / Unknown 04/11/2023 11:37 PM CDT 04/11/2023 11:48 PM CDT Parveen Sewell MD LAB - CHEMISTRY RJ AYALA Performing Organization Address [facility] de Phone Number [facility] [id number] [place] [phone] * (ABNORMAL) COAGULATION PANEL W D-DIMER (04/11/2023 3:13 PM CDT) PT 14.0 12.1 - 14.8 sec 04/11/2023 3:35 PM CDT [facility] INR 1.1 0.9 - 1.1 04/11/2023 [...] Sewell MD LAB - COAGULATION OR DERABLES [facility] [address] [place] [address] * (ABNORMAL) BLOOD GASES ARTERIAL [...] BLOOD GASES OR DERABLES Performing Organization Address City/State/[facility] Co de Phone Number [facility] [address] [phone] * XR CHEST 1VW PORTABLE (04/11/2023 2:40 [...] Event Date/Time: 04/11/2023 1:40 PM Procedure: intubation ([id number]). Procedure Section: Sedation: none. Procedure pretreatments used? [...] minutes. Staff Section Anesthesia Provider: Dank Casey, HEEL SPRAYER [facility], Performed the procedure Diamond Spring MD GENERAL ANESTHESIA O EDGAR * ARTERIAL LINE PERFORMABLE (04/11/2023 1:57 PM CDT) Narrative Diamond Spring MD - 04/11/2023 1:57 PM CDT Dank Casey, PIPER 04/11/2023 2:01 PM Arterial Line Placement Procedure Note Patient Location: OR. Procedure: Arterial Line ([id number]). Procedure Section Indications: hypotension and renal failure. [...] No Staff Section Anesthesia Provider: Dank Casey, HEEL SPRAYER [facility], Performed the procedure Diamond Spring MD GENERAL ANESTHESIA O YAIMAERAMARIO * LACTIC ACID BLOOD REFLEX TO REPEAT (04/07/2023 11:52 AM CDT) Lactic Acid 0.54 <=2 mmol/L 04/07/2023 12:20 PM CDT [facility] Blood BLOOD SPECIMEN / Unknown Venipuncture / Unknown 04/07/2023 11:52 AM CDT 04/07/2023 12:00 PM CDT Ilan Black MD LAB - CHEMISTRY RJ AYALA [facility] [address] [place] [address] * CT ANGIO ABDOMEN AORTA [...] DATE/TIME OF EXAM: 04/07/2023 9:55 AM, LOCATION [facility] INDICATION: I70.90: Unspecified atherosclerosis ADDITIONAL CLINICAL [...] RUNOFF, DATE/TIME OF EXAM:04/07/2023 9:55 AM, LOCATION [facility] INDICATION: I70.90: Unspecified atherosclerosis ADDITIONAL CLINICAL [...] ANTIBODY QUANT (04/07/2023 8:19 AM CDT) Pathologist [facility] Hepatitis B Virus Surface Antibody Quantitative 33.58(H) 0.00 - 7.99 mIU/ml 04/07/2023 1:34 PM CDT [facility] HBsAb REACTIVE( A) Non Reactive 04/07/2023 1:34 PM CDT [facility] Blood BLOOD SPECIMEN / Unknown Venipuncture / Unknown 04/07/2023 8:19 AM CDT 04/07/2023 8:31 AM CDT Narrative [facility] - 04/07/2023 1:34 PM CDT Individual is considered immune to HBV infection. Marito Rios MD LAB - SEROLOGY ORDER JENNIFER Performing Organization Address City/State/[facility] Co de Phone Number [facility] [address] [place] [address] * HEPATITIS SCREEN ACUTE (04/07/2023 8:19 AM CDT) Pathologist [facility] HAV Antibody IgM Non Reactive Non Reactive 04/07/2023 9:28 AM CDT [facility] HBsAg Non Reactive Non Reactive 04/07/2023 9:28 AM CDT [facility] HBc Antibody IgM Non Reactive Non Reactive 04/07/2023 9:28 AM CDT [facility] HCV Antibody Screen Non Reactive Non Reactive 04/07/2023 9:28 AM CDT [facility] Blood BLOOD SPECIMEN / Unknown Venipuncture / Unknown 04/07/2023 8:19 AM CDT 04/07/2023 8:31 AM CDT Narrative [facility] - 04/07/2023 9:28 AM CDT Non Reactive - Antibodies to Hepatitis C virus (HCV) were not detected, result does not exclude early acute HCV infection. Marito Rios MD LAB - CHEMISTRY RJ AYALA Performing Organization Address [facility] Co de Phone Number [facility] [address] [place] [address] * HEMOGLOBIN A1C (04/07/2023 4:28 AM CDT) Hemoglobin A1c 4.8 <5.7 % 04/07/2023 5:05 AM CDT [facility] Estimated Average Glucose 91 mg/dL 04/07/2023 5:05 AM CDT [facility] Blood BLOOD SPECIMEN / Unknown Venipuncture / Unknown 04/07/2023 4:28 AM CDT 04/07/2023 4:36 AM CDT Narrative [facility] - 04/07/2023 5:05 AM CDT HbA1c [...] exceeds 5% in the specimen. The [employer] assay for the measurement of HbA1c is a National Glycohemoglobin Standardization Program (NGSP) certified method. Susana MUSE LAB - CHEMISTRY Elli HERNÁNDEZ Performing Organization Address [facility] Co de Phone Number [facility] [address] [place] [address] * VAS ARTERIAL ANKLE ARM INDEX (04/05/2023 2:55 PM CDT) Anatomical Region Laterality Modality Ankle / Foot, Upper Extremity Ul trasound 04/05/2023 2:37 PM CDT Narrative Procedure Note Juan A Bassett MD - 04/05/2023 [facility] [place] [facility] [address] [facility], [address] [place] [address] Lower Extremity Arterial Doppler Report Pat.Name: GUILLERMO BRANDIE Ashlyn MCKAY Pat.ID: [id number] .Date: 04/05/2023 Refer.MD: Juan A Bassett Exam Time: 2:37:00 PM Study Type:MARTY/PVR Age: 7 1945,77Y Sex: MALE Sonogrphr: Ebenezer Terrazas Rvt Pat. Stat.:Outpatient CPT - 4: 43109 Reason for Study: Pain -Leg, left Procedures: Ankle Arm Index Race: 2 Visit ID: [id number] ++++++++++++++++++++++++++++++++++++ SUMMARY: ++++++++++++++++++++++++++++++++++++ Severe arterial disease in [...] monophasic. Arterial doppler waveforms of the left CHANGEOVER OPERATOR are absent. Arterial doppler waveforms of the left DPA are absent. MARTY: Rt ankle brachial index is 1.5. Left ankle brachial index is 0.0 (normal greater than 0.90). Arterial doppler waveforms of the right CHANGEOVER OPERATOR are monophasic. Arterial doppler waveforms of the right DPA are biphasic. Arterial doppler waveforms of the left CHANGEOVER OPERATOR are absent. Arterial doppler waveforms of the [...] Procedure Note Dank George MD - 01/27/2019 [facility] [place] [address], [address] [place] [address] Hemodialysis Graft Report Pat.Name: BRANDIE MORRISSEY JR Pat.ID: [id number] .Date: 01/27/2019 Exam Time: 9:59:00 AM Study Type:Hemodialysis Graft Age: 7 1945,73Y Sex: MALE Sonogrphr: Ishmael Terrazas RVT Pat. Stat.:Outpatient ICD - 9: N18.6 End stage renal disease CPT - 4: 28191 Procedures: Vessel Mapping for Hemodialysis Race: 2 Visit ID: [id number] ++++++++++++++++++++++++++++++++++++ SUMMARY: ++++++++++++++++++++++++++++++++++++ Patent left upper AV [...] Procedure Note Dank George MD - 06/03/2018 [facility] [place] [facility] [address] [facility], [address] [place] [address] Vessel Mapping for Hemodialysis Report Pat.Name: BRANDIE MORRISSEY Pat.ID: [id number] St.Date: 06/03/2018 Exam Time: 12:05:00 PM Study Type:Vessel Mapping for Hemodialysis Age: 7 1945,73Y Sex: MALE Sonogrphr: Ishmael Terrazas RVT Pat. Stat.:Outpatient ICD - 9: N18.6 End stage renal disease CPT - 4: G0365 Procedures:Vessel Mapping for Hemodialysis Race: 2 Visit ID: [id number] ++++++++++++++++++++++++++++++++++++ SUMMARY: ++++++++++++++++++++++++++++++++++++ The cephalic and basilic [...] MD VASCULAR LAB ORDER JENNIFER Care Teams Tumbler Tender Relationship Specialty Start Date End Date Mariza Carrion MD [address] [place] [address] PCP - General Family Medicine 08/26/18
--- OUTSIDE RECORDS SUMMARY | 2025-01-05 11:05 | XMS_ITS | Referral Summary ---
Author Organization [facility] Address [address] [place] [address] Care Team Providers Care Billet Checker Name Role Phone Efren Hoyos MD Unavailable Dank Hicks MD Unavailable [phone] Mariza Carrion MD Primary Care Provider Encounters Date Type Department Care Team Description 12/30/2024 Telephone [facility] Medical [facility] Cardiology [address] [facility] [address] [place] [phone] Dank Hicks MD 12/22/2024 Orders Only [facility] Cardiology [address] [facility] [address] [place] [phone] Curt Grady MD 11/25/2024 Telephone [facility] Diabetes and Endocrinology [address] [place] [phone] Bertha Pinto NP [facility] 11/25/2024 Telephone [facility] Diabetes and Endocrinology [address] [place] [phone] Bertha Pinto NP Med Management (Humalog ) 11/24/2024 11:00 AM LIGHT RAIL TRANSIT OPERATOR Office Visit [facility] Medical [facility] Diabetes and Endocrinology [address] [place] [phone] Schleeper, Bertha R., TRANSPLANT CASE MANAGER Type 2 diabetes mellitus with hyperglycemia, with long-term current use of insulin (CMS/HCC) (Primary Dx); Hypertension associated with diabetes (HCC); Hyperlipidemia associated with type 2 diabetes mellitus (HCC) 11/05/2024 1:30 PM LIGHT RAIL TRANSIT OPERATOR Ancillary Procedure [facility] Medical Group Cardiology [address] [place] [address] Cardiac pacemaker in situ; Asystole (HCC); Syncope and collapse; Symptomatic bradycardia 11/04/2024 Orders Only [facility] Medical [facility] Cardiology [address] [facility] [address], [place] [address] Dank Hicks MD Cardiac pacemaker in situ (Primary Dx); Asystole (HCC); Syncope and collapse; Symptomatic bradycardia 10/22/2024 8:28 PM LIGHT RAIL TRANSIT OPERATOR - 10/25/2024 3:09 PM LIGHT RAIL TRANSIT OPERATOR Hospital Encounter [address] [address] Guru Miller MD Brother, Michele, [...] of insulin (HCC) [E11.65, Z79.4]; Asystole (CMS/HCC) ([facility]) [I46.9] Discharge Disposition: Discharge to home or self care 10/24/2024 12:58 PM LIGHT RAIL TRANSIT OPERATOR Anesthesia Event [facility] Cardiac Catheterization Lab [address] [place] [address] Bahman Arrington MD Sheehan, Whitney Elise, CRNA 10/24/2024 12:30 PM LIGHT RAIL TRANSIT OPERATOR - 10/24/2024 2:30 PM LIGHT RAIL TRANSIT OPERATOR Surgery [facility] Cardiac Catheterization Lab [address] [place] [id number] Darien Jamil Jr., MD LEADLESS, SINGLE CHAMBER PACEMAKER (PPM) INSERTION 10/23/2024 Orders Only [facility] Cardiac Catheterization Lab [address] [place] [address] Darien Jamil Jr., MD Syncope and collapse [...] hyperglycemia, with long-term current use of insulin ([facility]) Use to test glucose 5 times daily 450 each 2 04/03/20 18 Active lancets (freestyle) 28 gauge miscIndications:T ype 2 diabetes mellitus with hyperglycemia, with long-term current use of insulin ([facility]) Use to test glucose [...] hyperglycemia, with long-term current use of insulin ([facility]) Change sensor every 14 [...] hyperglycemia, with long-term current use of insulin ([facility]) Use pads 5 times [...] hyperglycemia, with long-term current use of insulin ([facility]) Inject 0.5ML(1.5MG total) under [...] hyperglycemia, with long-term current use of insulin ([facility]) Use to inject insulin [...] 12/09/2019 Assessment & Plan (09/03/2023 9:28 AM LIGHT RAIL TRANSIT OPERATOR): Chronic problem. HD [facility] in [place]: //Saturdays. LUE fistula. Assessment & Plan (03/05/2023 9:59 AM CDT): Chronic problem. HD [facility] in [place]: //Saturdays. LUE fistula. ESRD on dialysis 05/22/2019 Hyperlipidemia associated with type 2 diabetes fouzia victoria 05/22/2019 Assessment & Plan (11/24/2024 10:10 AM LIGHT RAIL TRANSIT OPERATOR): Chronic problem. Controlled on current Atorvastatin 20mg. Last lipid panel: 03/03/24 LDL=33, TG=75. Assessment & Plan (03/03/2024 8:45 AM CDT): Chronic problem. Controlled on current Atorvastatin 20mg. Last lipid panel: 03/05/23 LDL=57, SM=702. Will update labs today. Does not mychart. Verified phone #/address to contact re: results. Assessment & Plan (09/03/2023 9:28 AM LIGHT RAIL TRANSIT OPERATOR): Chronic problem. Controlled on current Atorvastatin 20mg. Last lipid panel: 03/05/23 LDL=57, OT=855. Assessment & Plan (03/05/2023 9:53 AM CDT): Chronic problem. Controlled on current Atorvastatin 20mg. Last lipid panel: 12/05/21 LDL=36, CO=846. Will update labs today. Verified phone #/address to contact re: results. Assessment & Plan (11/02/2022 2:47 PM LIGHT RAIL TRANSIT OPERATOR): Chronic, well controlled Low fat Low cholesterol [...] Lipitor Assessment & Plan (09/07/2020 2:26 PM LIGHT RAIL TRANSIT OPERATOR): Goal of treatment , LDL cholesterol less [...] panel Assessment & Plan (12/09/2019 2:03 PM LIGHT RAIL TRANSIT OPERATOR): Very high TG Add Vascepa Assessment & [...] statin therapy Coronary artery disease invo lving [place] coronary artery of [place] heart without angina pectoris 10/04/2017 Hx of CABG 10/04/2017 Class 2 severe obesity due t o excess calories with serious comorbidity and body mass index (BMI) of 38.0 to 38.9 in adult 05/22/2017 Assessment & Plan (10/24/2018 12:58 PM LIGHT RAIL TRANSIT OPERATOR): Making progress with diet efforts. Continue Assessment & Plan (02/08/2018 11:01 AM CDT): Importance of following diet and exercising discussed. Hypertension associated with diabetes 05/22/2017 Assessment & Plan (11/24/2024 10:11 AM LIGHT RAIL TRANSIT OPERATOR): Chronic problem. Controlled on current losartan 100mg daily, amlodipine 10mg daily Assessment & Plan (03/03/2024 8:45 AM CDT): Chronic problem. BP elevated upon arrival. Controlled on current Carvedilol 25mg bid, losartan 100mg daily. No changes at this time. Will update labs today. Does not mychart. Verified phone #/address to contact re: results. Assessment & Plan (09/03/2023 9:28 AM LIGHT RAIL TRANSIT OPERATOR): Chronic problem. BP elevated upon arrival. Controlled [...] renal Assessment & Plan (10/24/2018 12:57 PM LIGHT RAIL TRANSIT OPERATOR): Controlled. Continue current medication plan and follow up with cardiology Assessment & Plan (06/18/2018 2:30 PM CDT): BP controlled on current medication plan. Continue follow up with nephrology Assessment & Plan (02/08/2018 11:00 AM CDT): Continue same medication Assessment & Plan (12/11/2017 10:24 AM LIGHT RAIL TRANSIT OPERATOR): Goal blood pressure is less than 140/85 [...] mellitus Assessment & Plan (11/24/2024 10:16 AM LIGHT RAIL TRANSIT OPERATOR): Chronic problem, controlled on current regimen. A1c [...] daily for skin breakdown and infection (sees cork painter and grader regularly). Assessment & Plan (03/03/2024 9:19 AM [...] daily for skin breakdown and infection (sees cork painter and grader regularly). Assessment & Plan (09/03/2023 9:27 AM LIGHT RAIL TRANSIT OPERATOR): Chronic problem, controlled on current regimen. A1c [...] daily for skin breakdown and infection (sees cork painter and grader regularly). Assessment & Plan (03/05/2023 10:13 AM CDT): Chronic problem, controlled on current regimen. Current medications: Trulicity 1.5mg weekly Lantus 6 units every morning Humalog 4 units before meals For sugars over 160: take 6 units For sugars over 200: take 8 units Seen by Retina Raymond every 4-5 mos; letter sent to get [...] daily for skin breakdown and infection (sees cork painter and grader regularly). Will update labs today. Verified phone #/address to contact re: results. Assessment & Plan (11/02/2022 2:43 PM LIGHT RAIL TRANSIT OPERATOR): Well controlled, with risk of hypoglycemia Insuli [...] Ross Assessment & Plan (09/07/2020 2:26 PM LIGHT RAIL TRANSIT OPERATOR): Hba1c was Lab Results Component Value Date [...] Trulicity. Assessment & Plan (12/09/2019 2:03 PM LIGHT RAIL TRANSIT OPERATOR): Your Hba1c today was: Lab Results Component [...] hypoglycemia. Assessment & Plan (10/24/2018 1:00 PM LIGHT RAIL TRANSIT OPERATOR): Stable BG pattern 100-140 reported since last adjustment to plan. No change today. BG goals reviewed. Advised to lower Lantus by 2 units if FBG are < 100 x 2 days/wk. For planned activity, reduce Humalog dose by 1/2 at preceding meal. Assessment & Plan (09/19/2018 11:11 AM LIGHT RAIL TRANSIT OPERATOR): Your Hba1c today was: Lab Results Component Value Date HGBA1C 5.1 09/19/2018 meaning a 3 month average sugar of : 81 Your goal hba1c is under 7.0 to prevent manager intermediate diabetes complications ( eye , kidney [...] time. Assessment & Plan (12/11/2017 10:47 AM LIGHT RAIL TRANSIT OPERATOR): Hba1c was .5.4 Today, 1800 calorie, consistent [...] 05/22/2019 Assessment & Plan (09/19/2018 11:20 AM LIGHT RAIL TRANSIT OPERATOR): Prevention and treatment of hypoglycemia were discussed [...] therapy Assessment & Plan (10/24/2018 12:57 PM LIGHT RAIL TRANSIT OPERATOR): Check lipid panel Assessment & Plan (06/18/2018 2:31 PM CDT): Continue statin therapy Assessment & Plan (02/08/2018 11:00 AM CDT): Continue atorvastatin Assessment & Plan (12/11/2017 10:45 AM LIGHT RAIL TRANSIT OPERATOR): Goal of treatment , LDL cholesterol less [...] 0.6 oz pur e alcohol) [facility] [employer] Answer Date Recorded In the past 12 months has [employer], [employer], oil, or water [employer] threatened to shut off services in your [...] week 10/23/2024 How often do you attend [facility] or confucianism services? Never 10/23/2024 Do you belong to any clubs o r organizations such as spiritism groups, unions, fraternal or athletic groups, or [...] any time in the past 12 [facility], were you homeless or living in a assisted (including now)? No 10/23/2024 Personal Safety Answer Date Recorded Have you ever been in or are you currently in a harmful physical or emotional relationship or is someone making you feel afraid or unsafe? Denies 10/22/2024 Sex and Gender Information Value Date Recorded Sex Assigned at Not on file Legal Sex Male 7:27 PM LIGHT RAIL TRANSIT OPERATOR Gender Identity Not on file Sexual Orientation Not on file Last Filed Vital Signs Vital Sign Reading Time Taken Comments Blood Pressure 102/58 11/24/2024 9:58 AM LIGHT RAIL TRANSIT OPERATOR Pulse 75 11/24/2024 9:58 AM LIGHT RAIL TRANSIT OPERATOR Temperature 36.3 C (97.3 F) 10/25/2024 2:15 PM LIGHT RAIL TRANSIT OPERATOR Respiratory Rate 20 11/24/2024 9:58 AM LIGHT RAIL TRANSIT OPERATOR Oxygen Saturation 100% 10/25/2024 1:15 PM LIGHT RAIL TRANSIT OPERATOR Inhaled Oxygen Concentration - - Weight 91.3 kg (201 lb 4.5 oz) 10/22/2024 8:29 P M LIGHT RAIL TRANSIT OPERATOR Height 170.2 cm (5' 7.01 ) 11/24/2024 9:58 AM CS T Body Mass Index 31.52 10/22/2024 8:29 PM LIGHT RAIL TRANSIT OPERATOR Plan of Treatment Not on file Medical Devices Implanted Type Area Rn Perinatal Device Identifier Shelf Expiration Date Model / Serial / Lot [employer]onic [employer] Micra 2 Av Synchronous Leadless Ventricular Pacemaker [id number] - [id number] - [id number] Implanted:Qty: 1 on 10/24/2024 by Darien Jamil Jr., MD at [facility] [employer] 02/16/2026 [id number] / [id number] / Procedures Procedure Name Priority Date/Time Associated Diagnosis Comments CARDIOLOGY DOCUMENT SCAN Routine 12/10/2024 10:59 AM LIGHT RAIL TRANSIT OPERATOR POCT GLUCOSE Routine 11/24/2024 10:01 AM LIGHT RAIL TRANSIT OPERATOR Type 2 diabetes mellitus with hyperglycemia, with long-term current use of insulin ([facility]) POCT HEMOGLOBIN A1C Routine 11/24/2024 1 0:01 AM LIGHT RAIL TRANSIT OPERATOR Type 2 diabetes mellitus with hyperglycemia, with long-term current use of insulin ([facility]) DEVICE CHECK - IN OFFICE Routine 11/05/2024 1:22 PM LIGHT RAIL TRANSIT OPERATOR Cardiac pacemaker in situ Asystole (HCC) Syncope and collapse Symptomatic bradycardia POCT GLUCOSE DEVICE Routine 10/25/2024 1 2:56 PM LIGHT RAIL TRANSIT OPERATOR POCT GLUCOSE DEVICE Routine 10/25/2024 8 :10 AM LIGHT RAIL TRANSIT OPERATOR POCT GLUCOSE DEVICE Routine 10/25/2024 7 :43 AM LIGHT RAIL TRANSIT OPERATOR EGFR Routine 10/25/2024 5:48 AM LIGHT RAIL TRANSIT OPERATOR BASIC METABOLIC PANEL Routine 10/25/2024 5:48 AM LIGHT RAIL TRANSIT OPERATOR CBC WITHOUT DIFFERENTIAL Routine 10/25/2024 5:48 AM LIGHT RAIL TRANSIT OPERATOR POCT GLUCOSE DEVICE Routine 10/25/2024 2 :25 AM LIGHT RAIL TRANSIT OPERATOR POCT GLUCOSE DEVICE Routine 10/24/2024 8 :31 PM LIGHT RAIL TRANSIT OPERATOR POCT GLUCOSE DEVICE Routine 10/24/2024 4 :33 PM LIGHT RAIL TRANSIT OPERATOR POCT GLUCOSE DEVICE Routine 10/24/2024 2 :03 PM LIGHT RAIL TRANSIT OPERATOR LEADLESS, SINGLE CHAMBER PACEMAKER (PPM) INSERTION Routine 10/24/2024 1:36 PM LIGHT RAIL TRANSIT OPERATOR Syncope and collapse POCT GLUCOSE DEVICE Routine 10/24/2024 1 1:26 AM LIGHT RAIL TRANSIT OPERATOR POCT GLUCOSE DEVICE Routine 10/24/2024 7 :30 AM LIGHT RAIL TRANSIT OPERATOR TSH Routine 10/24/2024 5:12 AM LIGHT RAIL TRANSIT OPERATOR EGFR Routine 10/24/2024 4:59 AM LIGHT RAIL TRANSIT OPERATOR BASIC METABOLIC PANEL Routine 10/24/2024 4:59 AM LIGHT RAIL TRANSIT OPERATOR CBC WITHOUT DIFFERENTIAL Routine 10/24/2024 4:59 AM LIGHT RAIL TRANSIT OPERATOR POCT GLUCOSE DEVICE Routine 10/24/2024 2 :39 AM LIGHT RAIL TRANSIT OPERATOR POCT GLUCOSE DEVICE Routine 10/23/2024 1 0:25 PM LIGHT RAIL TRANSIT OPERATOR POCT GLUCOSE DEVICE Routine 10/23/2024 8 :04 PM LIGHT RAIL TRANSIT OPERATOR POCT GLUCOSE DEVICE Routine 10/23/2024 5 :42 PM LIGHT RAIL TRANSIT OPERATOR HEPATITIS B SURFACE ANTIBODY (IMMUNE STATUS) Routine 10/23/2024 2:45 PM LIGHT RAIL TRANSIT OPERATOR HEPATITIS PANEL, ACUTE Routine 10/23/2024 2:45 PM LIGHT RAIL TRANSIT OPERATOR POCT GLUCOSE DEVICE Routine 10/23/2024 1 2:57 PM LIGHT RAIL TRANSIT OPERATOR HEMODIALYSIS Routine 10/23/2024 9:13 AM LIGHT RAIL TRANSIT OPERATOR POCT GLUCOSE DEVICE Routine 10/23/2024 7 :47 AM LIGHT RAIL TRANSIT OPERATOR EGFR Routine 10/23/2024 5:27 AM LIGHT RAIL TRANSIT OPERATOR DIFFERENTIAL AUTO Routine 10/23/2024 5:2 7 AM LIGHT RAIL TRANSIT OPERATOR MAGNESIUM Routine 10/23/2024 5:27 AM LIGHT RAIL TRANSIT OPERATOR PHOSPHORUS Routine 10/23/2024 5:27 AM LIGHT RAIL TRANSIT OPERATOR COMPREHENSIVE METABOLIC PANEL Routine 10/23/2024 5:27 AM LIGHT RAIL TRANSIT OPERATOR CBC WITH AUTO DIFFERENTIAL Routine 10/23/2024 5:27 AM LIGHT RAIL TRANSIT OPERATOR POCT GLUCOSE DEVICE Routine 10/23/2024 3 :04 AM LIGHT RAIL TRANSIT OPERATOR POCT GLUCOSE DEVICE Routine 10/22/2024 1 0:42 PM LIGHT RAIL TRANSIT OPERATOR POCT GLUCOSE DEVICE Routine 10/22/2024 8 :42 PM LIGHT RAIL TRANSIT OPERATOR HM DIABETES EYE EXAM Routine 08/13/2024 9:40 [...] Read Routine (OP Routine) 12/05/2021 11:53 AM LIGHT RAIL TRANSIT OPERATOR End stage renal disease (HCC) from Last 3 Months or Most Recently Relevant to Health Maintenance Results * Cardiology Document Scan (12/10/2024 10:59 AM LIGHT RAIL TRANSIT OPERATOR) Anatomical Region Laterality Modality Other us Ripa Hayden Grady MD CV CARDIAC SERVICES PRO CEDURES Final Result * POCT hemoglobin A1c (11/24/2024 10:01 AM LIGHT RAIL TRANSIT OPERATOR) Hemoglobin A1C, POC 4.9 4.0 - 5.6 % Blood 11/24/2024 10:0 1 AM LIGHT RAIL TRANSIT OPERATOR us Berthageno Pinto NP POINT OF CARE TEST ORDERA BLES Final Result * (ABNORMAL) POCT glucose (11/24/2024 10:01 AM LIGHT RAIL TRANSIT OPERATOR) Glucose Blood, POC 131 mg/dL Blood 11/24/2024 10:0 1 AM LIGHT RAIL TRANSIT OPERATOR us Bertha Efe Pinto TRANSPLANT CASE MANAGER POINT OF CARE TEST ORDERA BLES Final Result * DEVICE CHECK - IN OFFICE (11/05/2024 1:22 PM LIGHT RAIL TRANSIT OPERATOR) Anatomical Region Laterality Modality Other Narrative 11/13/2024 2:43 PM LIGHT RAIL TRANSIT OPERATOR Medtronic Micra AV2 Pacemaker. Dx; Symptomatic Bradycardia, [...] Result * POCT glucose (10/25/2024 12:56 PM LIGHT RAIL TRANSIT OPERATOR) Glucose, POC 74 70 - 199 mg/dL Blood 10/25/2024 12:5 6 PM LIGHT RAIL TRANSIT OPERATOR 10/25/2024 12:56 PM LIGHT RAIL TRANSIT OPERATOR Nabeel Richard Philippe LAB POCT ORDERABLES - DEVICE Final Result Performing Organization Address [facility] de Phone Number NIDIA COTE [address] [facility] [place] [employer] [address] * POCT glucose (10/25/2024 8:10 AM LIGHT RAIL TRANSIT OPERATOR) Glucose, POC 100 70 - 199 mg/dL Blood 10/25/2024 8:10 AM LIGHT RAIL TRANSIT OPERATOR 10/25/2024 8:10 AM LIGHT RAIL TRANSIT OPERATOR Nabeel Richard Philippe [facility] POCT ORDERABLES - DEVICE Final Result Performing Organization Address [facility] [place] [address] [address] [facility] [place] [address] * POCT glucose (10/25/2024 7:43 AM LIGHT RAIL TRANSIT OPERATOR) Glucose, POC 78 70 - 199 mg/dL Blood 10/25/2024 7:43 AM LIGHT RAIL TRANSIT OPERATOR 10/25/2024 7:43 AM LIGHT RAIL TRANSIT OPERATOR Nabeel Richard Philippe [facility] POCT ORDERABLES - DEVICE Final Result Performing Organization Address [facility] [place] [address] [address] [facility] [place] [address] * (ABNORMAL) eGFR (10/25/2024 5:48 AM LIGHT RAIL TRANSIT OPERATOR) eGFR 9(L) >=60 mL/min/1. 73 m2 Comment: [...] last reviewed 2021. Blood 10/25/2024 5:48 AM LIGHT RAIL TRANSIT OPERATOR 10/25/2024 6:03 AM LIGHT RAIL TRANSIT OPERATOR us Raisa Scherer NP LAB BLOOD ORDERABLES Jeaneth mari Result [facility] [address] [place] [address] * (ABNORMAL) CBC without differential (10/25/2024 5:48 AM LIGHT RAIL TRANSIT OPERATOR) Pathologist [facility] WBC 4.6 3.8 - 9.9 K/cumm Hgb 8.3(L) 13.0 - 17.5 g/dL [facility] Hct 28.1(L) 38.9 - 50.3 % [facility] Plt 187 150 - 400 K/cumm [facility] MPV 10.6 9.1 - 12.3 fL [facility] RBC 2.82(L) 4.30 - 5.80 M/cumm [facility] MCV 99.6(H) 81.3 - 96.4 fL [facility] MCH 29.4 27.1 - 33.3 pg [facility] MCHC 29.5(L) 32.3 - 35.7 g/dL [facility] CV 16.3(H) 11.1 - 14.9 % [facility] SD 60.4(H) 35.7 - 48.1 fL [facility] NRBC abs 0.00 0.00 - 0.01 K/cumm [facility] Blood 10/25/2024 5:48 AM LIGHT RAIL TRANSIT OPERATOR 10/25/2024 6:03 AM LIGHT RAIL TRANSIT OPERATOR Raisa Scherer NP LAB BLOOD ORDERAB[place] [address] [place] [address] * (ABNORMAL) Basic metabolic panel (10/25/2024 5:48 AM LIGHT RAIL TRANSIT OPERATOR) Sodium 135 135 - 145 mmol/L Potassium, [...] mg/dL [facility] Blood 10/25/2024 5:48 AM LIGHT RAIL TRANSIT OPERATOR 10/25/2024 6:03 AM LIGHT RAIL TRANSIT OPERATOR Raisa G. Torbert TRANSPLANT CASE MANAGER LAB BLOOD ORDERABLES Jeaneth l Result N[facility]IA [place] [address] [facility] [place] [address] * POCT glucose (10/25/2024 2:25 AM LIGHT RAIL TRANSIT OPERATOR) Glucose, POC 81 70 - 199 mg/dL Blood 10/25/2024 2:25 AM LIGHT RAIL TRANSIT OPERATOR 10/25/2024 2:25 AM LIGHT RAIL TRANSIT OPERATOR Nabeel Paez DO LAB POCT ORDERABLES - DEVICE Final Result Performing Organization Address [facility] Co de Phone Number NIDIA COTE [address] [facility] [place] [address] * POCT glucose (10/24/2024 8:31 PM LIGHT RAIL TRANSIT OPERATOR) Glucose, POC 120 70 - 199 mg/dL Blood 10/24/2024 8:31 PM LIGHT RAIL TRANSIT OPERATOR 10/24/2024 8:31 PM LIGHT RAIL TRANSIT OPERATOR Nabeel Paez DO [facility] POCT ORDERABLES - DEVICE Final Result Performing Organization Address [facility] Co de Phone Number NIDIA COTE [address] [facility] [place] [address] * POCT glucose (10/24/2024 4:33 PM LIGHT RAIL TRANSIT OPERATOR) Glucose, POC 85 70 - 199 mg/dL Blood 10/24/2024 4:33 PM LIGHT RAIL TRANSIT OPERATOR 10/24/2024 4:33 PM LIGHT RAIL TRANSIT OPERATOR Nabeel Paez LAB POCT ORDERABLES - DEVICE Final Result Performing Organization Address [facility] Co de Phone Number NIDIA COTE [address] [address] [facility] [place] [address] * POCT glucose (10/24/2024 2:03 PM LIGHT RAIL TRANSIT OPERATOR) Glucose, POC 83 70 - 199 mg/dL Blood 10/24/2024 2:03 PM LIGHT RAIL TRANSIT OPERATOR 10/24/2024 2:03 PM LIGHT RAIL TRANSIT OPERATOR Nabeel Ramos Philippe [facility] POCT ORDERABLES - DEVICE Final Result Performing Organization Address [facility] Co de Phone Number NIDIA COTE [address] [address] [facility] [place] [address] * POCT glucose (10/24/2024 11:26 AM LIGHT RAIL TRANSIT OPERATOR) Glucose, POC 85 70 - 199 mg/dL Blood 10/24/2024 11:2 6 AM LIGHT RAIL TRANSIT OPERATOR 10/24/2024 11:26 AM LIGHT RAIL TRANSIT OPERATOR Nabeel Richard Philippe [facility] POCT ORDERABLES - DEVICE Final Result Performing Organization Address [facility] de Phone Number NIDIA [address] [place] [address] * POCT glucose (10/24/2024 7:30 AM LIGHT RAIL TRANSIT OPERATOR) Glucose, POC 94 70 - 199 mg/dL Blood 10/24/2024 7:30 AM LIGHT RAIL TRANSIT OPERATOR 10/24/2024 7:30 AM LIGHT RAIL TRANSIT OPERATOR Nabeel Richard Philippe [facility] POCT ORDERABLES - DEVICE Final Result Performing Organization Address [facility] de Phone Number NIDIA KERA [address] [place] [address] * TSH (10/24/2024 5:12 AM LIGHT RAIL TRANSIT OPERATOR) Thyroid Stimulating Hormone 0.48 0.30 - 4.20 mcIUnit/mL Blood 10/24/2024 5:12 AM LIGHT RAIL TRANSIT OPERATOR 10/24/2024 5:23 AM LIGHT RAIL TRANSIT OPERATOR Sherrill Christianson MD LAB BLOOD ORDERABLES Final Result Performing Organization Address City/[facility] [place] [address] [address] [place] [address] * (ABNORMAL) eGFR (10/24/2024 4:59 AM LIGHT RAIL TRANSIT OPERATOR) eGFR 13(L) >=60 mL/min/1. 73 m2 Comment: [...] last reviewed 2021. Blood 10/24/2024 4:59 AM LIGHT RAIL TRANSIT OPERATOR 10/24/2024 5:23 AM LIGHT RAIL TRANSIT OPERATOR us Raisa Scherer NP LAB BLOOD ORDERABLES Jeaneth mari Result [facility] [address] [place] [address] * (ABNORMAL) CBC without differential (10/24/2024 4:59 AM LIGHT RAIL TRANSIT OPERATOR) WBC 5.1 3.8 - 9.9 K/cumm Hgb 8.9(L) 13.0 - 17.5 g/dL [facility] Hct 29.9(L) 38.9 - 50.3 % [facility] Plt 188 150 - 400 K/cumm [facility] MPV 10.2 9.1 - 12.3 fL [facility] RBC 2.93(L) 4.30 - 5.80 M/cumm [facility] MCV 102.0(H) 81.3 - 96.4 fL [facility] MCH 30.4 27.1 - 33.3 pg [facility] MCHC 29.8(L) 32.3 - 35.7 g/dL [facility] RDW CV 16.8(H) 11.1 - 14.9 % [facility] RDW SD 62.6(H) 35.7 - 48.1 fL [facility] NRBC abs 0.00 0.00 - 0.01 K/cumm [facility] Blood 10/24/2024 4:59 AM LIGHT RAIL TRANSIT OPERATOR 10/24/2024 5:20 AM LIGHT RAIL TRANSIT OPERATOR us Raisa Scherer NP LAB BLOOD ORDERABLES Jeaneth mari Result [facility] [address] [place] [address] * (ABNORMAL) Basic metabolic panel (10/24/2024 4:59 AM LIGHT RAIL TRANSIT OPERATOR) Sodium 136 135 - 145 mmol/L Potassium, pl 4.2 3.3 - 4.9 mmol/L [facility] Chloride 94(L) 97 - 110 mmol/L [facility] CH CO2 31 22 - 32 mmol/L [facility] CH Anion gap 11 2 - 15 mmol/L [facility] CH BUN 20 6 - 25 mg/dL [facility] Creatinine 4.30(H) 0.80 - 1.30 mg/dL [facility] Glucose 80 70 - 199 mg/dL [facility] Comment: Interpretive Data Fasting glucose >/= 126 [...] 10.3 mg/dL [facility] Blood 10/24/2024 4:59 AM LIGHT RAIL TRANSIT OPERATOR 10/24/2024 5:20 AM LIGHT RAIL TRANSIT OPERATOR Raisa Scherer TRANSPLANT CASE MANAGER LAB BLOOD ORDERABLES Jeaneth l Result N[facility]IA [facility] [address] [facility] [place] [employer] [address] * POCT glucose (10/24/2024 2:39 AM LIGHT RAIL TRANSIT OPERATOR) Glucose, POC 123 70 - 199 mg/dL Blood 10/24/2024 2:39 AM LIGHT RAIL TRANSIT OPERATOR 10/24/2024 2:39 AM LIGHT RAIL TRANSIT OPERATOR Nabeel Paez DO LAB POCT ORDERABLES - DEVICE Final Result Performing Organization Address [facility] Co de Phone Number [facility] [address] [facility] [place] [address] * POCT glucose (10/23/2024 10:25 PM LIGHT RAIL TRANSIT OPERATOR) Glucose, POC 173 70 - 199 mg/dL Blood 10/23/2024 10:2 5 PM LIGHT RAIL TRANSIT OPERATOR 10/23/2024 10:25 PM LIGHT RAIL TRANSIT OPERATOR Nabeel HERRING POCT ORDERABLES - DEVICE Final Result Performing Organization Address [facility] Co de Phone Number [facility] [address] [place] [address] * POCT glucose (10/23/2024 8:04 PM LIGHT RAIL TRANSIT OPERATOR) Glucose, POC 70 70 - 199 mg/dL Blood 10/23/2024 8:04 PM LIGHT RAIL TRANSIT OPERATOR 10/23/2024 8:04 PM LIGHT RAIL TRANSIT OPERATOR Nabeel Paez DO LAB POCT ORDERABLES - DEVICE Final Result Performing Organization Address [facility] Co de Phone Number [facility] [address] [facility] [place] [address] * POCT glucose (10/23/2024 5:42 PM LIGHT RAIL TRANSIT OPERATOR) Glucose, POC 90 70 - 199 mg/dL Blood 10/23/2024 5:42 PM LIGHT RAIL TRANSIT OPERATOR 10/23/2024 5:42 PM LIGHT RAIL TRANSIT OPERATOR Nabeel Paez DO LAB POCT ORDERABLES - DEVICE Final Result Performing Organization Address City/[facility]/ZIP Co de Phone Number NIDIA [address] [place] [address] * Hepatitis panel, acute Blood (10/23/2024 2:45 PM LIGHT RAIL TRANSIT OPERATOR) Hep A IgM Nonreactive Nonreactive Comment: Interpretive Data: If Hep A IgM Ab is reported as Equivocal, a new sample should be drawn in two weeks for testing. Current interpretive data was last revised on 20. Hep B core IgM Nonreactive Nonreactive [facility] Comment: Interpretive Data If HepB Core IgM Ab is reported as Equivocal, a new sample should be drawn in two weeks for testing. Current interpretive data was last revised on 20. Hep C Ab Nonreactive Nonreactive [facility] Comment: Interpretive Data Nonreactive: Antibodies to [...] last revised on 2020. HepBsAg Nonreactive Nonreactive [facility] Blood 10/23/2024 2:45 PM LIGHT RAIL TRANSIT OPERATOR 10/23/2024 2:46 PM LIGHT RAIL TRANSIT OPERATOR Sherrill Christianson MD LAB MICROBIOLOGY - GENERAL ORDERABLES Final Result Performing Organization Address City/[facility]/ZIP Co de Phone Number NIDIA [address] [place] [address] * Hepatitis B surface antibody (immune status) Blood (10/23/2024 2:45 PM LIGHT RAIL TRANSIT OPERATOR) HBsAb (immune status) Nonreactive Comment: Interpretive Data [...] revised on 20. Blood 10/23/2024 2:45 PM LIGHT RAIL TRANSIT OPERATOR 10/23/2024 2:46 PM LIGHT RAIL TRANSIT OPERATOR Sherrill Christianson MD LAB MICROBIOLOGY - GENERAL ORDERABLES Final Result Performing Organization Address [facility] [place] [address] [address] [place] [address] * (ABNORMAL) POCT glucose (10/23/2024 12:57 PM LIGHT RAIL TRANSIT OPERATOR) Glucose, POC 69(L) 70 - 199 mg/dL Blood 10/23/2024 12:5 7 PM LIGHT RAIL TRANSIT OPERATOR 10/23/2024 12:57 PM LIGHT RAIL TRANSIT OPERATOR Nabeel Paez DO LAB POCT ORDERABLES - DEVICE Final Result Performing Organization Address City/[facility] [place] [address] [address] [place] [address] * POCT glucose (10/23/2024 7:47 AM LIGHT RAIL TRANSIT OPERATOR) Glucose, POC 81 70 - 199 mg/dL Blood 10/23/2024 7:47 AM LIGHT RAIL TRANSIT OPERATOR 10/23/2024 7:47 AM LIGHT RAIL TRANSIT OPERATOR Sylvester Engel MD LAB POCT ORDERABLES - DEVICE Final Result Performing Organization Address [facility] [place] [address] [address] [place] [address] * (ABNORMAL) eGFR (10/23/2024 5:27 AM LIGHT RAIL TRANSIT OPERATOR) eGFR 11(L) >=60 mL/min/1. 73 m2 Comment: [...] last reviewed 2021. Blood 10/23/2024 5:27 AM LIGHT RAIL TRANSIT OPERATOR 10/23/2024 5:32 AM LIGHT RAIL TRANSIT OPERATOR us Raisa Scherer NP LAB BLOOD ORDERABLES Jeaneth mari Result [facility] [address] [place] [address] * (ABNORMAL) Differential, auto (10/23/2024 5:27 AM LIGHT RAIL TRANSIT OPERATOR) Neutrophil abs 4.1 1.5 - 6.5 K/cumm Imm gran abs 0.1 0.0 - 0.1 K/cumm [facility] Lymphocyte abs 0.4(L) 0.8 - 3.3 K/cumm [facility] Monocyte abs 0.7 0.2 - 0.8 K/cumm [facility] Eosinophil abs 0.1 0.0 - 0.5 K/cumm [facility] Basophil abs 0.0 0.0 - 0.1 K/cumm [facility] Neutrophil pct 76.5 % [facility] Comment: Interpretive Data Percent cell count reference ranges are not reported, since discordance with absolute values may lead to misinterpretation of CBC data. Current Interpretive Data was last revised on 2018. Imm gran pct 1.1 % [facility] Comment: Interpretive Data Percent cell count reference ranges are not reported, since discordance with absolute values may lead to misinterpretation of CBC data. Current Interpretive Data was last revised on 2018. Lymphocyte pct 7.9 % [facility] Comment: Interpretive Data Percent cell count reference ranges are not reported, since discordance with absolute values may lead to misinterpretation of CBC data. Current Interpretive Data was last revised on 2018. Monocyte pct 12.7 % [facility] Comment: Interpretive Data Percent cell count reference ranges are not reported, since discordance with absolute values may lead to misinterpretation of CBC data. Current Interpretive Data was last revised on 2018. Eosinophil pct 1.1 % [facility] Comment: Interpretive Data Percent cell count reference ranges are not reported, since discordance with absolute values may lead to misinterpretation of CBC data. Current Interpretive Data was last revised on 2018. Basophil pct 0.7 % [facility] Comment: Interpretive Data Percent cell count reference ranges are not reported, since discordance with absolute values may lead to misinterpretation of CBC data. Current Interpretive Data was last revised on 2018. Blood 10/23/2024 5:2 7 AM LIGHT RAIL TRANSIT OPERATOR 10/23/2024 5:30 AM LIGHT RAIL TRANSIT OPERATOR us Raisa Scherer TRANSPLANT CASE MANAGER LAB BLOOD ORDERABLES Jeaneth l Result [facility] [address] [place] [address] * (ABNORMAL) CBC with auto differential (10/23/2024 5:27 AM LIGHT RAIL TRANSIT OPERATOR) WBC 5.3 3.8 - 9.9 K/cumm Hgb 8.8(L) 13.0 - 17.5 g/dL [facility] Hct 28.9(L) 38.9 - 50.3 % [facility] Plt 179 150 - 400 K/cumm [facility] MPV 10.4 9.1 - 12.3 fL [facility] RBC 2.86(L) 4.30 - 5.80 M/cumm [facility] MCV 101.0(H) 81.3 - 96.4 fL [facility] MCH 30.8 27.1 - 33.3 pg [facility] MCHC 30.4(L) 32.3 - 35.7 g/dL [facility] RDW CV 17.2(H) 11.1 - 14.9 % [facility] CH RDW SD 63.7(H) 35.7 - 48.1 fL [facility] NRBC abs 0.00 0.00 - 0.01 K/cumm [facility] Blood 10/23/2024 5:27 AM LIGHT RAIL TRANSIT OPERATOR 10/23/2024 5:30 AM LIGHT RAIL TRANSIT OPERATOR Raisa Scherer TRANSPLANT CASE MANAGER LAB BLOOD ORDERABLES Jeaneth l Result Performing Organization Address [facility] Co de Phone Number [facility] [address] [facility] [place] [address] * Phosphorus (10/23/2024 5:27 AM LIGHT RAIL TRANSIT OPERATOR) Phosphorus, pl 4.5 2.3 - 4.5 mg/dL Blood 10/23/2024 5:27 AM LIGHT RAIL TRANSIT OPERATOR 10/23/2024 5:30 AM LIGHT RAIL TRANSIT OPERATOR Raisa Scherer TRANSPLANT CASE MANAGER LAB BLOOD ORDERABLES Jeaneth l Result Performing Organization Address City/[facility] Co de Phone Number [facility] [address] [facility] [place] [address] * Magnesium (10/23/2024 5:27 AM LIGHT RAIL TRANSIT OPERATOR) Magnesium 2.1 1.4 - 2.5 mg/dL Blood 10/23/2024 5:27 AM LIGHT RAIL TRANSIT OPERATOR 10/23/2024 5:30 AM LIGHT RAIL TRANSIT OPERATOR Raisa Scherer TRANSPLANT CASE MANAGER LAB BLOOD ORDERABLES Jeaneth l Result Performing Organization Address [facility]/[place] [address] [place] [address] * (ABNORMAL) Comprehensive metabolic panel (10/23/2024 5:27 AM LIGHT RAIL TRANSIT OPERATOR) Sodium 137 135 - 145 mmol/L Potassium, [...] Units/L [facility] CH Blood 10/23/2024 5:27 AM LIGHT RAIL TRANSIT OPERATOR 10/23/2024 5:30 AM LIGHT RAIL TRANSIT OPERATOR Riasa Scherer TRANSPLANT CASE MANAGER LAB BLOOD ORDERABLES Jeaneth l Result [facility] [address] [place] [address] * POCT glucose (10/23/2024 3:04 AM LIGHT RAIL TRANSIT OPERATOR) Glucose, POC 84 70 - 199 mg/dL Blood 10/23/2024 3:04 AM LIGHT RAIL TRANSIT OPERATOR 10/23/2024 3:04 AM LIGHT RAIL TRANSIT OPERATOR Sylvester Engel MD LAB POCT ORDERABLES - DEVICE Final Result Performing Organization Address [facility] Co de Phone Number [facility] [address] [place] [address] * POCT glucose (10/22/2024 10:42 PM LIGHT RAIL TRANSIT OPERATOR) Glucose, POC 101 70 - 199 mg/dL Blood 10/22/2024 10:4 2 PM LIGHT RAIL TRANSIT OPERATOR 10/22/2024 10:42 PM LIGHT RAIL TRANSIT OPERATOR Sylvester Engel MD LAB POCT ORDERABLES - DEVICE Final Result Performing Organization Address [facility] Co de Phone Number [facility] [place] [address] [place] [address] * POCT glucose (10/22/2024 8:42 PM LIGHT RAIL TRANSIT OPERATOR) Glucose, POC 114 70 - 199 mg/dL Blood 10/22/2024 8:42 PM LIGHT RAIL TRANSIT OPERATOR 10/22/2024 8:42 PM LIGHT RAIL TRANSIT OPERATOR Guru Miller MD LAB POCT ORDERABLES - DEVICE Final Result Performing Organization Address [facility] Co de Phone Number [facility] [place] [address] [address] [facility] [place] [address] * (ABNORMAL) DIABETES EYE EXAM (08/13/2024 9:40 AM CDT) Historical Provider HEALTH MAINTENANCE Edited Result - Final * (ABNORMAL) Albumin Creatinine Ratio, Urine (03/10/2024 8:46 AM CDT) Albumin Ur 3,169.5 mg/L Comment: Interpretive Data No reference range established. Current interpretive data was last revised 2019. Creatinine Ur 47.7 mg/dL [facility] Comment: Interpretive Data No reference range established. Current interpretive data was last revised 2019. Albumin Creatinine Ratio, Ur 6,645(H) 1 - 29 mg/g [facility] Urine 03/10/2024 8:46 AM CDT 03/11/2024 9:11 AM CDT us Bertha Pinto NP LAB URINE ORDERABLES Jeaneth mari Result [facility] [address] [place] [address] * (ABNORMAL) Lipid panel (03/03/2024 9:29 AM [...] revised on 2018. Triglycerides 75 <=149 mg/dL [facility] Comment: Interpretive Data Ages < or [...] BLOOD ORDERABLES Jeaneth mari Result [facility] [address] [place] [address] * CT Abdomen Pelvis WO Contrast (12/05/2021 11:53 AM LIGHT RAIL TRANSIT OPERATOR) Anatomical Region Laterality Modality Body N/A Computed Tomogra phy 12/05/2021 12:0 4 PM LIGHT RAIL TRANSIT OPERATOR Impressions 12/05/2021 12:04 PM LIGHT RAIL TRANSIT OPERATOR Bone windows show no suspicious lytic or blastic lesions. IMPRESSION: 1. 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 2. 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 Electronically signed by: Ryan Cameron M.D. Narrative 12/05/2021 12:04 PM LIGHT RAIL TRANSIT OPERATOR EXAMINATION: Computed tomography of the abdomen/pelvis without [...] adeniform shape. There is atrophy of both [place] kidneys. Adjacent fat stranding is likely related [...] adeniform shape. There is atrophy of both [place] kidneys. Adjacent fat stranding is likely related [...] LIFE MEDICARE MEDICARE FOR LIFE Care Teams Billet Checker Relationship Specialty Start Date End Date Mariza Carrion MD [address] [place] [address] PCP - General Family Practice 03/05/23 Efren Hoyos MD Referring Physician Ophthalmology 06/16/19 Dank Hicks MD [address] [place], [place] [id number] Consulting Physician Cardiology 10/11/21
--- OUTSIDE RECORDS SUMMARY | 2025-01-05 11:05 | XMS_ITS | CONTINUITY OF CARE DOCUMENT ---
Author Name milly atkins Address Unknown Organization [facility] Address [address] [place] [address] Phone [phone] Care Team Providers Care Social Services Designee Name Role Phone Kostas Pelaez MD Unavailable [phone] Kostas Pelaez MD Unavailable [phone] PROBLEMS Condition Status Date Provider Notes S/P Single chamb PCM Micra - [employer] ( MRI safe) active Tonie Garay INSURANCE PROVIDERS Payer name Policy type / Coverage type [employer] party ID [employer] [place] [id number] [place] Medicare [id number]
[2025-01-05 13:18] LABS: Base Excess ABG 1.1 mEq/l (+/-2.0); Carboxyhemoglobin 2.4 % THb (0-2.0); Device NASAL CANNULA; Fractional Inspired Oxygen 28 %; HCO3 ABG 27.7 mEq/l (22.0-26.0); Methemoglobin ABG 0.3 %THb (0-1.5); Modified Allen's Test Pass; Oxygen Content ABG 12.2 %vol (16.0-22.0); Oxygen Saturation ABG 94.4 % (95.0-100.0); Oxyhemoglobin 91.4 % THb (90.0-100.0); PCO2 ABG 54.8 mmHg (35.0-45.0); PO2 FiO2 Ratio Arterial Blood 2.79 %; Reduced Hemoglobin 5.9 %THb (0-5.0); Site Drawn RIGHT RADIAL; Total Hemoglobin 9.4 g/dL (12.0-18.0); pH ABG 7.322 (7.350-7.450)
--- NOTE | 2025-01-05 13:27 | PC.NURSE ---
vascular access called to obtain second set of blood cultures
--- NOTE | 2025-01-05 13:43 | PC.NURSE ---
Sent blood cultures down drawn by CHRISTOPHER AVILES RN. Christopher was UNAVAILABLE to send blood cultures down.
--- NOTE | 2025-01-05 14:27 | PC.NURSE ---
Dialysis called and states they are ready for patient.
[2025-01-05 14:33] LABS: Influenza A QL RT-PCR Negative (Negative); Influenza B QL RT-PCR Negative (Negative); RSV RNA, RT-PCR Negative (Negative); SARS-CoV-2 RNA PCR Negative (Negative)
--- NOTE | 2025-01-05 14:46 | PC.NURSE ---
Patient lethargic, but arousable upon verbal and touch stimulation.
[2025-01-05] MEDS: AZITHROMYCIN 500 MG/NS 250 ML 500 MG/250 ML BAG 250 MG IVPB (15:00)
--- NOTE | 2025-01-05 15:05 | PC.NURSE ---
Patient taken to dialysis by tech and respiratory. Patient will go from dialysis to room 204 for admission
--- NOTE | 2025-01-05 16:06 | PC.NURSE ---
Report received from JIMMY Motley @ 1535. Pt currently in dialysis and will arrive to room 204 afterwards.
--- NOTE | 2025-01-05 16:46 | P.HP_ITS ---
H&P: HPI History of Present Illness Date/Time: 01/05/25 16:46 Chief Complaint: head injury Narrative: This is a 79-year-old male with a significant past medical history of End-stage renal disease on hemodialysis, insulin-dependent type 2 diabetes mellitus, COPD, coronary artery disease, BPH, peripheral vascular disease, anemia, vitamin-D deficiency, hypertension, hyperlipidemia who presented to the hospital after sustaining a head injury from rolling out of bed. patient unable to provide any meaningful history of presenting illness and most of his history of presenting illness was obtained from the EMR. He was reported in the ER that around 1:00 a.m. in the morning he was unable to speak which lasted for about 2 hours. he has had multiple falls and multiple trips to the ER due to his falls. His most recent fall was 2 days ago when he was bending over to pull up his pants after he got off the toilet and fell. He did not lose consciousness at that time however he did have some abrasions to bilateral upper extremities with swelling to both upper extremities and facial edema. Workup in the hospital included a chest x-ray which showed bilateral basal pneumonia, bilateral interstitial thickening suggestive of pneumonitis versus pulmonary edema. Head/neck CTA was negative for any occlusion or stenosis of the head, shown severe stenosis in the left vertebral body in the lower segment 2. initial labs showed a normal white blood cell count of 6.1, hemoglobin 8.9 INR 1.2 sodium 131, chloride 91, creatinine 5.80, EGFR 10, blood sugar 304, troponin 0.088. ABG showed a pH of 7.347, pCO2 46.6, PO2 56.9, bicarb 25 on room air. Respiratory panel was negative for influenza a and B, RSV, COVID. Blood cultures were obtained and pending. Patient was started on BiPAP while in the ED for hypercapnia as well as given a dose of Rocephin, and azithromycin. Nephrology was consulted. Patient was evaluated after his dialysis session. They were able to remove 3.4 L. Nursing called me with concerns for his mental status and patient was difficult to wake up after his dialysis session. He states that he is very tired and just wants to sleep. We did repeat an ABG which actually showed imp rovement with a pH of 7.354, pCO2 46.9. During my assessment he was still very difficult to wake up and is currently on the BiPAP triggering 65% of the time. Considering the history of presenting illness and the description of his symptoms, this could very well be seizure with post ictal state. Review of Systems Review of Systems: ROS unobtainable: Yes unobtainable due to mental status [facility] Past Medical History Medical History Sinus pause (~09/2024) Bilateral shoulder pain Obstructive sleep apnea Insulin dependent type 2 diabetes mellitus Chronic obstructive pulmonary disease Coronary artery disease Benign prostatic hyperplasia Peripheral vascular disease (~03/2023) Internal hemorrhoid, bleeding Anemia End-stage renal disease on hemodialysis History of colon polyps Environmental allergies Vitamin D deficiency Dyslipidemia Essential (primary) hypertension Surgical History Surgical History History of cardiac pacemaker (~10/2024) due to symptomatic sinus pauses causing syncope History of hemorrhoidectomy Anorectal evaluation under anesthesia and excisional hemorrhoidectomy x3 12/14/23 SAW S/P peripheral artery angioplasty (~03/2023) status post balloon angioplasty of bilateral common and external iliac arteries status post left iliofemoral endarterectomy Arteriovenous fistula of left upper extremity (~2017) History of appendectomy (~1962) History of coronary artery bypass graft (~2013) Family History Family History Mother Diabetes mellitus Acute myocardial infarction Family history of congestive heart failure Father Hypertension Social History Social History Social History: Surrogate medical decision maker: Wilian Morrissey, sibling. Code status: Full code. Caffeine- daily Smoking packs per day: 10 Smoking cigarettes per day: 200.0 Years smoked: 10 Smoking pack-years: 100.00 Smoking status: Former smoker Second hand tobacco smoke exposure: No Alcohol intake: never Drinks per week: 1 Alcohol use details: Maybe 2-3 per year Substance use: never Substance use type: does not use Do You Feel Safe in your Home?: Yes Lack of Transportation: No Lack of Food: Never True Current Housing: I Have Housing Concerned About Future Housing: No Difficulty Paying Gas/Electric Bills: No Difficulty Paying for Meds: No Currently Unemployed: No Education: Associate Degree Difficulty w/ Childcare or Family Care: No Living arrangements: with family Occupation/Education: retired Additional occupation/education comments: Retired from the [employer]. Spiritual care concerns: No Agree to blood products: Yes Meds Home Medications and Allergies Home Medications ?Medication ?Instructions ?Recorded ?Confirmed ?Type aspirin 81 mg tablet,delayed 81 mg PO DAILY 10/31/21 01/05/25 History release carvedilol 25 mg tablet 25 mg PO BID 10/31/21 01/05/25 History dulaglutide 1.5 mg/0.5 mL 1.5 mg subcut WEEKLY 10/31/21 01/05/25 History subcutaneous pen injector (Trulicity) insulin lispro 100 unit/mL 4 unit subcut .TIDAC 10/31/21 01/05/25 History subcutaneous pen loratadine 10 mg tablet (Claritin) 10 mg PO PRN 10/31/21 01/05/25 History amlodipine 10 mg tablet 10 mg PO DAILY 11/07/23 01/05/25 History insulin glargine 100 unit/mL (3 6 unit subcut DAILY 11/07/23 01/05/25 History mL) subcutaneous pen (Lantus Solostar U-100 Insulin) cinacalcet 90 mg PO DAILY 12/12/23 01/05/25 History cyclobenzaprine 10 mg tablet 10 mg PO TID PRN muscle spasm #30 10/07/24 01/05/25 Rx tabs atorvastatin 20 mg tablet 20 mg PO DAILY 12/21/24 01/05/25 History finasteride 5 mg tablet (Proscar) 5 mg PO QAM #30 tabs 12/23/24 01/05/25 Rx furosemide 80 mg tablet 80 mg PO BID #60 tabs 12/23/24 01/05/25 Rx sevelamer carbonate 0.8 gram oral 3.2 g PO TIDWM 30 days #60 ea 12/23/24 01/05/25 Rx powder packet tamsulosin 0.4 mg capsule 0.4 mg PO QHS #30 caps 12/23/24 01/05/25 Rx Allergies Allergy/AdvReac Type Severity Reaction Status Date / Time No Known Allergies Allergy Verified 12/20/24 08:13 Vital Signs Vital Signs - 24 hr 01/05/25 09:29 01/05/25 11:47 01/05/25 11:47 Temperature 97.9 F Pulse Rate 79 84 Respiratory Rate 13 22 H Blood Pressure 162/72 H 158/56 H Pulse Oximetry 96 100 100 Oxygen Delivery Room Air Nasal Cannula Oxygen Flow Rate 2 Fraction of Inspired Oxygen 01/05/25 13:30 01/05/25 13:46 01/05/25 13:51 Temperature Pulse Rate 72 Respiratory Rate 22 H Blood Pressure Pulse Oximetry 95 100 98 Oxygen Delivery BiPAP BiPAP BiPAP Oxygen Flow Rate Fraction of Inspired Oxygen 01/05/25 14:45 01/05/25 15:05 01/05/25 15:05 Temperature 97.5 F L Pulse Rate 85 81 Respiratory Rate 18 18 Blood Pressure 160/76 H 126/67 Pulse Oximetry 100 100 Oxygen Delivery Oxygen Flow Rate Fraction of Inspired Oxygen 24 01/05/25 15:15 01/05/25 15:26 01/05/25 15:30 Temperature Pulse Rate 69 79 Respiratory Rate 22 H Blood Pressure 141/76 H 149/73 H Pulse Oximetry 97 Oxygen Delivery BiPAP Oxygen Flow Rate Fraction of Inspired Oxygen 01/05/25 15:45 01/05/25 16:00 Temperature Pulse Rate 75 78 Respiratory Rate Blood Pressure 158/85 H 164/94 H Pulse Oximetry Oxygen Delivery Oxygen Flow Rate Fraction of Inspired Oxygen Exam Narrative: General: In no acute distress, well nourished Head: atraumatic, no encephalopathy Eyes: PERRLA, sclera clear ENT: moist mucous membranes, nasal passages clear, swelling around eyes Neck: supple, no JVD, no adenopathy, trachea midline Cardiac: Normal S1 and S2. RRR, No murmur, gallops or friction rubs, peripheral pulses intact. Respiratory: Lungs clear to auscultation, no adventitious lung sounds, currently on Bipap 24% Gastrointestinal: soft, non-distended, non-tender, normoactive bowel sounds. : AV graft with bruit and thrill Extremities: moves all extremities well, BUE edema 1+, facial edema, BLE edema 1+ Skin: scabs and bruised on bilateral arms Neuro: Alert to painful stimuli Psych:unable to assess due to mental status H&P: Results Labs Labs: Short CBC 01/05/25 Range/Units 10:13 WBC 6.1 (4.5-10.0) K/mm3 Hgb 8.9 L (14.0-18.0) g/dL Hct 30.1 L (42.0-52.0) % Plt Count 197 (150-375) k/mm3 BMP 01/05/25 01/05/25 10:13 10:33 Sodium 131 L Potassium 4.2 Chloride 91 L Carbon Dioxide 30 BUN 44 H D Creatinine 5.57 H 5.80 H Glucose 304 H Calcium 8.9 Cardiac Enzymes 01/05/25 Range/Units 10:13 Troponin I 0.088 H* (0.000-0.034) ng/mL Liver Function 01/05/25 Range/Units 10:13 Total Bilirubin 0.3 (0.2-1.3) mg/dL AST 16 L (17-59) U/L ALT 20 (6-50) U/L Alkaline Phosphatase 77 (38-126) U/L Albumin 3.7 (3.5-5.1) g/dL Imaging Chest x-ray: Radiologist's impression: XR chest 1V portable Ordering provider: Akhil Castillo MD History: 79 years Male with . SOA . Comparison: December 21, 2024 FINDINGS: MEDIASTINUM: The cardiac silhouette is slightly enlarged. Congestive serina. Postoperative changes in the mediastinum. LUNGS: No effusions or pneumothorax. Bilateral basal opacification suggestive of pneumonia. Bilateral interstitial thickening suggestive of pneumonitis. Underlying pulmonary edema is not excluded. OTHER: No free air under the diaphragm. IMPRESSION: Bilateral basal pneumonia. Bilateral interstitial thickening suggestive of pneumonitis versus pulmonary edema. Reviewed, dictated and finalized at location A. head/neck CTA: Radiologist's impression: CTA brain carotid Ordering provider: Akhil Castillo MD History: . left sided weakness . Comparison: 12/30/2024 Technique: CT angiogram head and neck was performed following timed intravenous injection of contrast. Thin slice axial images and reformatted coronal images were obtained. Three dimensional reformatted images of the brain were also obtained using a [id number] workstation. Radiation reduction technique utilized The dose-length product was 1715.29 mGy-cm. 100 mL Omnipaque 350 was given IV. FINDINGS: HEAD: --ANTERIOR AND MIDDLE CEREBRAL ARTERIES AND BRANCHES: Normal caliber and contour. --INTERNAL CAROTID ARTERIES: Mild atheromatous disease but no significant stenosis. No occlusion. --BASILAR ARTERY AND BRANCHES: Normal caliber and contour. No atheromatous disease. --POSTERIOR CEREBRAL ARTERIES: Normal caliber and contour --POSTERIOR COMMUNICATING ARTERIES: Not visualized which is probably related to congenital absence or small size. --ANEURYSM: None visualized. --BRAIN: Brain atrophy with deep white matter ischemic changes. --BONES AND SUPERFICIAL SOFT TISSUES: Bifid anterior and posterior arch of C1 otherwise normal. --PARANASAL SINUSES AND MASTOIDS: Bilateral maxillary sinus disease more on the right side. Bilateral ethmoid sinus disease. Left nasal septal deviation. NECK: --RIGHT CERVICAL CAROTID SYSTEM: Mild atheromatous disease of the carotid bulb and proximal internal carotid artery without significant stenosis. Percent stenosis per NASCET criteria is 25%. No carotid dissection. Otherwise, no significant atheromatous disease or stenosis of the cervical carotid system. --LEFT CERVICAL CAROTID SYSTEM: Mild atheromatous disease of the carotid bulb and proximal internal carotid artery without significant stenosis. Percent stenosis per NASCET criteria is 10%. No carotid dissection. Otherwise, no significant atheromatous disease or stenosis of the cervical carotid system. --VERTEBRAL ARTERIES: Severe narrowing of the left vertebral artery. Normal caliber and contour. --VISUALIZED AORTIC ARCH AND BRANCHING VESSELS: Mild atheromatous disease but no significant stenosis. --SOFT TISSUES: Bilateral pleural effusion. Bilateral lung groundglass appearance in the lungs which may indicate infection versus atelectasis versus edema. --CERVICAL SPINE: Age appropriate degenerative changes. IMPRESSION: 1. CTA neck. Percent stenosis per NASCET criteria is 25% on the right and 10% on the left. 2. CTA of the head with no occlusion or significant stenosis. 3. 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 Reviewed, dictated and finalized at location A. Assessment and Plan Assessment and plan (1) Impaired gas exchange: Code(s): R06.89 - Other abnormalities of breathing Status: Acute Assessment and Plan: * pH 7.347, pCO2 46.6, PO2 56.9, bicarb 25.0 * continue BiPAP for hypercapnia and hypoxia * admit to IMU (2) Pneumonia: Code(s): J18.9 - Pneumonia, unspecified organism Status: Resolved Assessment and Plan: * chest x-ray showing bilateral basal pneumonia, bilateral interstitial thickening suggestive of pneumonitis versus pulmonary edema * continue Rocephin and azithromycin * continue DuoNebs * wean O2 for sat greater than 92% (3) End-stage renal disease on hemodialysis: Code(s): N18.6 - End stage renal disease; Z99.2 - Dependence on renal dialysis Status: Acute Assessment and Plan: * initial creatinine 5.80, EGFR 10 * nephrology consulted, plan for dialysis today * continue to trend * nephrology following (4) Elevated troponin: Code(s): R79.89 - Other specified abnormal findings of blood chemistry Status: Acute Assessment and Plan: * troponin 0.088 * likely demand ischemia from fluid overload (5) Altered mental status: Code(s): R41.82 - Altered mental status, unspecified Status: Acute Assessment and Plan: Patient difficult to arouse after dialysis today. Patient expressed in the ER that around 1 a.m. he couldn't speak which lasted for about 2 hours. He has had multiple falls in the past, some that were evaluated in our ER. * Concerns for seizure activity with post ictal state * Will consult neurology * EEG ordered * Brain and Brain stem MRI ordered * continue neuro checks. * Check ammonia level * pH 7.354, pCO2 46.9 on latest ABG * will check lactic acid (6) IDDM (insulin dependent diabetes mellitus): Status: Chronic Assessment and Plan: * Blood sugar 304 * Hgb A1C 6.2 on 12/22/2024 * Accu checks AC/HS * high-dose SSI ordered * hypoglycemic protocol in place * Lantus 6 units ordered * currently on a renal dialysis diet, will add diabetic diet as well (7) Hypertension: Code(s): I10 - Essential (primary) hypertension Status: Acute Assessment and Plan: * blood pressure ranging 128/61 to 144/77 * continue Coreg and amlodipine (8) Dyslipidemia: Code(s): E78.5 - Hyperlipidemia, unspecified Status: Acute Assessment and Plan: * continue aspirin and atorvastatin (9) CARITO (obstructive sleep apnea): Code(s): G47.33 - Obstructive sleep apnea (adult) (pediatric) Status: Acute Assessment and Plan: * BiPAP at night due to hypercapnia and hypoxia Quality VTE Prophylaxis VTE prophylaxis: pharmacologic ordered Hospitalist MIPS Advance Care Plan I have confirmed that the patient's Advanced Care Plan is present, code status is documented, or surrogate decision maker is listed in patient medical record.: Yes Medication Reconciliation I have utilized all available resources to obtain, update and review the patients current medications (includes all prescriptions, OTC, herbals, cannabis, and nutritional supplements).: Yes
--- NOTE | 2025-01-05 18:50 | PC.NURSE ---
Pt arrived to room 204 via stretcher after dialysis treatment.
[2025-01-05] MEDS: IPRATROPIUM 0.5 MG/ALBUTEROL SULFATE 2.5 MG AMPUL.NEB 3 ML INHALATION (20:22)
[2025-01-05 20:37] LABS: Glucose Point of Care 208 mg/dl (65-105)
[2025-01-05 20:47] LABS: Alveolar/Arterial O2 Gradient 13.3 mmHg; Base Excess ABG -0.2 mEq/l (+/-2.0); Carboxyhemoglobin 1.9 % THb (0-2.0); Device NON-INVASIVE VENT; Fractional Inspired Oxygen 24 %; HCO3 ABG 25.5 mEq/l (22.0-26.0); Methemoglobin ABG 0.3 %THb (0-1.5); Oxygen Content ABG 12.6 %vol (16.0-22.0); Oxygen Saturation ABG 97.4 % (95.0-100.0); Oxyhemoglobin 95.1 % THb (90.0-100.0); PCO2 ABG 46.9 mmHg (35.0-45.0); PO2 FiO2 Ratio Arterial Blood 4.25 %; Reduced Hemoglobin 2.7 %THb (0-5.0); Site Drawn RIGHT BRACHIAL; Total Hemoglobin 9.3 g/dL (12.0-18.0); pH ABG 7.354 (7.350-7.450)
[2025-01-05 20:48] LABS: Non-Invasive Expiratory Pressure 8 CMH2O; Non-Invasive Inspiratory Pressure 14 CMH2O; Non-Invasive Vent Rate 20 /MIN
[2025-01-05 23:35] LABS: Ammonia < 9 umol/L (9-30); Lactic Acid Reflex 1.1 mmol/L (0.7-2.0)
[2025-01-06] VITALS (37 sets, daily range): BP systolic 124–176; BP diastolic 53–87; PULSE 70–102; RESP 16–24; TEMP 36.5–37; O2SAT 90–97
[2025-01-06] MEDS: IPRATROPIUM 0.5 MG/ALBUTEROL SULFATE 2.5 MG AMPUL.NEB 3 ML INHALATION ×3 (01:43→19:58)
[2025-01-06 04:38] LABS: Basophils Absolute Auto 0.1 K/mm3 (0.0-0.1); Basophils Percent Auto 0.7 % (0.2-1.2); Eosinophils Absolute Auto 0.2 K/mm3 (0-0.3); Eosinophils Percent Auto 2.7 % (0-4.4); Hematocrit 25.6 % (42.0-52.0); Hemoglobin 7.9 g/dL (14.0-18.0); Immature Granulocyte Absolute 0.05 K/mm3 (0.00-0.031); Immature Granulocyte Percent A 0.7 % (0-0.5); Lymphocytes Absolute Auto 0.63 K/mm3 (0.9-3.2); Lymphocytes Percent Auto 9.3 % (18.3-44.2); Mean Corpuscular HGB Conc 30.9 g/dl (32-36); Mean Corpuscular Hemoglobin 26.8 pg (26-34); Mean Corpuscular Volume 86.8 fl (80-100); Mean Platelet Volume 10.4 fl (7.4-10.4); Monocytes Absolute Auto 0.8 K/mm3 (0.1-0.6); Monocytes Percent Auto 11.7 % (2.6-8.5); Neutrophils Absolute Auto 5.1 K/mm3 (1.3-6.7); Neutrophils Percent Auto 74.9 % (45.5-73.1); Platelet Count Result 209 k/mm3 (150-375); Red Blood Count 2.95 M/mm3 (4.6-6.20); Red Cell Distribution Width 19.2 % (11.5-14.5); White Blood Count 6.8 K/mm3 (4.5-10.0)
[2025-01-06 04:51] LABS: Alanine Aminotransferase 16 U/L (6-50); Albumin Level 3.1 g/dL (3.5-5.1); Alkaline Phosphatase 65 U/L (38-126); Anion Gap 11 mmol/L (4-12); Aspartate Amino Transferase 14 U/L (17-59); Bilirubin,Total 0.3 mg/dL (0.2-1.3); Blood Urea Nitrogen 49 mg/dL (9-20); Calcium 8.8 mg/dL (8.4-10.2); Carbon Dioxide 28 mmol/L (22-30); Chloride 93 mmol/L (98-107); Estimated CRCL calculation 11 ml/min; Estimated Glomerular Filt Rate 9; Glucose 163 mg/dL (65-110); Magnesium 1.9 mg/dL (1.6-2.3); Potassium 4.3 mmol/L (3.4-5.0); Sodium 132 mmol/L (137-145)
--- NOTE | 2025-01-06 07:42 | PM.CNNEP ---
Assessment and Plan Assessment and plan (1) End-stage renal disease on hemodialysis: Code(s): N18.6 - End stage renal disease; Z99.2 - Dependence on renal dialysis Status: Acute Assessment and Plan: The patient has end-stage renal disease. This is due to diabetes and hypertension. Vascular disease is probably playing a role as well. he is grossly volume overloaded. He probably has 20-30 lb on. He had 3.4L removed yesterday. We will take off another 3-4 L today his blood pressure is generous so hopefully he will tolerate this. Potassium is okay so will use a 3K bath. (2) Hypertension: Code(s): I10 - Essential (primary) hypertension Status: Acute Assessment and Plan: the patient's blood pressure is high. Will give him his home medications but also will remove fluid in dialysis. Yesterday his blood pressure dropped into the normal range with dialysis treatment. (3) Diabetes: Code(s): E11.9 - Type 2 diabetes mellitus without complications Status: Acute Assessment and Plan: blood sugars running between 134 and 304. Management per hospitalists (4) Anemia: Code(s): D64.9 - Anemia, unspecified Status: Chronic Assessment and Plan: hemoglobin is 7.9. will give Epogen today. His blood pressure should drop enough for us to administer it later in the treatment will check iron levels and reticulocyte count (5) Acute exacerbation of CHF (congestive heart failure): Qualifiers: Heart failure type: unspecified Qualified Code(s): I50.9 - Heart failure, unspecified Code(s): I50.9 - Heart failure, unspecified Status: Acute Assessment and Plan: The patient has volume overload. he had an echocardiogram in October showing normal LV function but some diastolic dysfunction. He has right-sided problems because of his sleep apnea most likely. He has moderate tricuspid regurgitation is well , including pulmonary hypertension with a pressure of 49. (6) Peripheral vascular disease: Onset Date: ~03/2023 Code(s): I73.9 - Peripheral vascular disease, unspecified Status: Acute Assessment and Plan: He had stents placed in his lower extremities. This has been doing okay apparently. (7) CARITO (obstructive sleep apnea): Code(s): G47.33 - Obstructive sleep apnea (adult) (pediatric) Status: Acute Assessment and Plan: he does not use a CPAP machine at home (8) Dyslipidemia: Code(s): E78.5 - Hyperlipidemia, unspecified Status: Acute Assessment and Plan: he is on atorvastatin (9) Altered mental status: Code(s): R41.82 - Altered mental status, unspecified Status: Acute Assessment and Plan: the patient's CO2 is mildly high but at its baseline. Sodium is slightly low but not enough to cause this. Calcium level is not high. Ammonia level was okay. During other hospital stays his mental status has waxed and waned. CT brain shows no brain lesion but does have some vascular disease as mentioned in the report. He gets cyclobenzaprine at the nursing facility. This has been held. Will get a regular dialysis today. History of Present Illness Reason for Consult Consult date: 01/06/25 Chief Complaint Chief complaint: respieratory failure, pneumonia, encephalopathy History of Present Illness Narrative: Sam is a very pleasant 79-year-old gentleman who has multiple medical problems including end-stage renal disease on dialysis 3 times a week, hypertension, diabetes, history of sudden caused by a sinus pause, coronary artery disease, hyperlipidemia, peripheral vascular disease in the lower extremities, obstructive sleep apnea, COPD, vitamin-D deficiency, anemia, and renal osteodystrophy. The patient has been in an out of hospital for various reasons. The last time it was for weakness and falling. He had volume overload, somnolence, diarrhea, and heel ulcer. The time before that he was in for shortness of breath because of volume overload. He has gradually become weaker and weaker. He used to live with his brother but then he became too much to handle so he was moved to a custodial. Family did not like how he was doing in the 1st custodial so he switched to a 2nd custodial. Since the last hospital stay the patient has been drinking lots of fluid. He was 10kilos over at 1 point. It seems he can not resist drinking lots of fluid. Yesterday morning the patient was short of breath and swollen so they sent him to the ER. In the ER he was evaluated found to have anasarca. He almost could not open his eyes because he had so much swelling. He also was short of breath. The put him on a BiPAP machine. His breathing improved with the BiPAP machine. He had dialysis yesterday to remove fluid and 3400cc was removed. His blood pressure dropped into the 120s during treatment. Overnight the patient's blood pressure gradually nakul again. This morning when I saw him he was somnolent. He was on the BiPAP machine. He looked comfortable but very swollen. [facility] Past Medical History Medical History Bilateral shoulder pain Sinus pause (~09/2024) Obstructive sleep apnea Insulin dependent type 2 diabetes mellitus Chronic obstructive pulmonary disease Coronary artery disease Benign prostatic hyperplasia Peripheral vascular disease (~03/2023) Internal hemorrhoid, bleeding Anemia End-stage renal disease on hemodialysis History of colon polyps Environmental allergies Vitamin D deficiency Dyslipidemia Essential (primary) hypertension Surgical History Surgical History History of cardiac pacemaker (~10/2024) due to symptomatic sinus pauses causing syncope History of hemorrhoidectomy Anorectal evaluation under anesthesia and excisional hemorrhoidectomy x3 12/14/23 [facility] S/P peripheral artery angioplasty (~03/2023) status post balloon angioplasty of bilateral common and external iliac arteries status post left iliofemoral endarterectomy Arteriovenous fistula of left upper extremity (~2017) History of appendectomy (~1962) History of coronary artery bypass graft (~2013) Family History Family History Mother Diabetes mellitus Acute myocardial infarction Family history of congestive heart failure Father Hypertension Social History Social History Social History: Surrogate medical decision maker: Wilianisael Morrissey, sibling. Code status: Full code. Caffeine- daily Smoking packs per day: 10 Smoking cigarettes per day: 200.0 Years smoked: 10 Smoking pack-years: 100.00 Smoking status: Former smoker Second hand tobacco smoke exposure: No Alcohol intake: never Drinks per week: 1 Alcohol use details: Maybe 2-3 per year Substance use: never Substance use type: does not use Do You Feel Safe in your Home?: Yes Lack of Transportation: No Lack of Food: Never True Current Housing: I Have Housing Concerned About Future Housing: No Difficulty Paying Gas/Electric Bills: No Difficulty Paying for Meds: No Currently Unemployed: No Education: Associate Degree Difficulty w/ Childcare or Family Care: No Living arrangements: with family Occupation/Education: retired Additional occupation/education comments: Retired from the [employer]. Spiritual care concerns: No Agree to blood products: Yes Meds Home Medications and Allergies Home Medications ?Medication ?Instructions ?Recorded ?Confirmed ?Type aspirin 81 mg tablet,delayed 81 mg PO DAILY 10/31/21 01/05/25 History release carvedilol 25 mg tablet 25 mg PO BID 10/31/21 01/05/25 History dulaglutide 1.5 mg/0.5 mL 1.5 mg subcut WEEKLY 10/31/21 01/05/25 History subcutaneous pen injector (Trulicity) insulin lispro 100 unit/mL 4 unit subcut .TIDAC 10/31/21 01/05/25 History subcutaneous pen loratadine 10 mg tablet (Claritin) 10 mg PO PRN 10/31/21 01/05/25 History amlodipine 10 mg tablet 10 mg PO DAILY 11/07/23 01/05/25 History insulin glargine 100 unit/mL (3 6 unit subcut DAILY 11/07/23 01/05/25 History mL) subcutaneous pen (Lantus Solostar U-100 Insulin) cinacalcet 90 mg PO DAILY 12/12/23 01/05/25 History cyclobenzaprine 10 mg tablet 10 mg PO TID PRN muscle spasm #30 10/07/24 01/05/25 Rx tabs atorvastatin 20 mg tablet 20 mg PO DAILY 12/21/24 01/05/25 History finasteride 5 mg tablet (Proscar) 5 mg PO QAM #30 tabs 12/23/24 01/05/25 Rx furosemide 80 mg tablet 80 mg PO BID #60 tabs 12/23/24 01/05/25 Rx sevelamer carbonate 0.8 gram oral 3.2 g PO TIDWM 30 days #60 ea 12/23/24 01/05/25 Rx powder packet tamsulosin 0.4 mg capsule 0.4 mg PO QHS #30 caps 12/23/24 01/05/25 Rx Allergies Allergy/AdvReac Type Severity Reaction Status Date / Time No Known Allergies Allergy Verified 12/20/24 08:13 Vital Signs Vital Signs - 24 hr 01/05/25 09:29 01/05/25 11:47 01/05/25 11:47 Temperature 97.9 F Pulse Rate 79 84 Respiratory Rate 13 22 H Blood Pressure 162/72 H 158/56 H Pulse Oximetry 96 100 100 Oxygen Delivery Room Air Nasal Cannula Oxygen Flow Rate 2 Fraction of Inspired Oxygen 01/05/25 13:30 01/05/25 13:46 01/05/25 13:51 Temperature Pulse Rate 72 Respiratory Rate 22 H Blood Pressure Pulse Oximetry 95 100 98 Oxygen Delivery BiPAP BiPAP BiPAP Oxygen Flow Rate Fraction of Inspired Oxygen 01/05/25 14:45 01/05/25 15:05 01/05/25 15:05 Temperature 97.5 F L Pulse Rate 85 81 Respiratory Rate 18 18 Blood Pressure 160/76 H 126/67 Pulse Oximetry 100 100 Oxygen Delivery Oxygen Flow Rate Fraction of Inspired Oxygen 24 01/05/25 15:15 01/05/25 15:26 01/05/25 15:30 Temperature Pulse Rate 69 79 Respiratory Rate 22 H Blood Pressure 141/76 H 149/73 H Pulse Oximetry 97 Oxygen Delivery BiPAP Oxygen Flow Rate Fraction of Inspired Oxygen 01/05/25 15:45 01/05/25 16:00 01/05/25 16:00 Temperature Pulse Rate 75 78 84 Respiratory Rate Blood Pressure 158/85 H 164/94 H Pulse Oximetry Oxygen Delivery Oxygen Flow Rate Fraction of Inspired Oxygen 01/05/25 16:15 01/05/25 16:30 01/05/25 16:45 Temperature Pulse Rate 81 81 88 Respiratory Rate Blood Pressure 143/81 H 144/77 H 133/55 L Pulse Oximetry Oxygen Delivery Oxygen Flow Rate Fraction of Inspired Oxygen 01/05/25 17:00 01/05/25 17:15 01/05/25 17:30 Temperature Pulse Rate 81 82 88 Respiratory Rate Blood Pressure 128/61 147/48 H 134/56 L Pulse Oximetry Oxygen Delivery Oxygen Flow Rate Fraction of Inspired Oxygen 01/05/25 17:45 01/05/25 18:00 01/05/25 18:00 Temperature Pulse Rate 86 81 86 Respiratory Rate Blood Pressure 128/29 L 131/63 Pulse Oximetry Oxygen Delivery Oxygen Flow Rate Fraction of Inspired Oxygen 01/05/25 18:15 01/05/25 18:30 01/05/25 18:43 Temperature 97.9 F Pulse Rate 85 87 80 Respiratory Rate 16 22 H Blood Pressure 155/88 H 148/78 H Pulse Oximetry 100 98 Oxygen Delivery BiPAP Oxygen Flow Rate Fraction of Inspired Oxygen 01/05/25 19:09 01/05/25 20:00 01/05/25 20:00 Temperature 95.9 F L 97.6 F Pulse Rate 86 89 Respiratory Rate 22 H 24 H Blood Pressure 152/73 H 175/80 H Pulse Oximetry 100 98 100 Oxygen Delivery BiPAP Oxygen Flow Rate Fraction of Inspired Oxygen 24 01/05/25 20:00 01/05/25 20:24 01/05/25 20:24 Temperature Pulse Rate 86 82 Respiratory Rate 24 H Blood Pressure Pulse Oximetry 99 99 Oxygen Delivery BiPAP BiPAP Oxygen Flow Rate Fraction of Inspired Oxygen 24 01/05/25 20:24 01/05/25 20:43 01/05/25 22:00 Temperature Pulse Rate 82 87 86 Respiratory Rate 24 H 20 Blood Pressure Pulse Oximetry Oxygen Delivery Oxygen Flow Rate Fraction of Inspired Oxygen 01/05/25 22:44 01/05/25 22:58 01/05/25 23:00 Temperature Pulse Rate 72 Respiratory Rate 23 H Blood Pressure Pulse Oximetry 100 98 100 Oxygen Delivery BiPAP BiPAP BiPAP Oxygen Flow Rate Fraction of Inspired Oxygen 01/05/25 23:35 01/06/25 00:00 01/06/25 01:43 Temperature 97.7 F Pulse Rate 86 84 80 Respiratory Rate 26 H 23 H Blood Pressure 151/70 H Pulse Oximetry 100 97 Oxygen Delivery BiPAP Oxygen Flow Rate Fraction of Inspired Oxygen 01/06/25 01:43 01/06/25 02:00 01/06/25 02:00 Temperature Pulse Rate 80 85 82 Respiratory Rate 23 H 21 H Blood Pressure Pulse Oximetry Oxygen Delivery Oxygen Flow Rate Fraction of Inspired Oxygen 01/06/25 03:05 01/06/25 04:00 01/06/25 04:00 Temperature 97.8 F Pulse Rate 79 82 Respiratory Rate 20 Blood Pressure 172/63 H Pulse Oximetry 94 94 Oxygen Delivery BiPAP Oxygen Flow Rate Fraction of Inspired Oxygen 01/06/25 04:54 01/06/25 06:00 Temperature Pulse Rate 82 88 Respiratory Rate 21 H Blood Pressure Pulse Oximetry 97 Oxygen Delivery BiPAP Oxygen Flow Rate Fraction of Inspired Oxygen Exam Narrative: Exam Narrative: Well developed well-nourished Male in no acute distress Skin is warm and dry without rash Head normocephalic atraumatic. Eyelids and face are very swollen Eyes normal sclerae and conjunctivae Mouth normal lips teeth and gums Neck no nodes no thyromegaly no carotid bruits Axillae no nodes Back no CVA tenderness Lungs symmetric and by basilar crackles to auscultation and normal to percussion Heart regular rate and rhythm without rub or gallop Abdomen bowel sounds positive soft nontender, no HSM, masses, or bruits. Extremities no cyanosis, clubbing, or edema Pulses 2+ equal in radial arteries Psychological not anxious or depressed Neuro somnolent motor tone is normal cranial nerves 2-12 intact passively reflexes 2+ and equal in the biceps and patellar tendons cerebellar no seizures clonus or tremor Results Lab Results 01/06/25 04:26 01/06/25 04:26 Lab results: Most recent lab results ABG pH 7.354 (7.350-7.450) 01/05/25 20:25 ABG pCO2 46.9 mmHg (35.0-45.0) H 01/05/25 20:25 ABG pO2 102.0 mmHg (80.0-100.0) H 01/05/25 20:25 ABG HCO3 25.5 mEq/l (22.0-26.0) 01/05/25 20:25 ABG O2 Saturation 97.4 % (95.0-100.0) 01/05/25 20: Calcium 8.8 mg/dL (8.4-10.2) 01/06/25 04:26 Magnesium 1.9 mg/dL (1.6-2.3) 01/06/25 04:26
--- NOTE | 2025-01-06 08:01 | PM.EVENT ---
Event Note Event Note Event Note: I went back and saw the patient about an hour after I had seen him for. And he was awake and oriented. He knew who I was and knew he was in the hospital. Had a long discussion about his fluid intake. I told him that he had it least 20 or 30lb of fluid on. He seems to understand that fluid retention is why he is in the hospital. He has had fluid overload each time he has been in the hospital last 3 times regardless of why he was admitted. And he often is fluid overloaded in the dialysis unit. Dialysis can keep up with all the fluid he drinks. He has tricuspid regurgitation and the fluid overload makes the valvular incompetence worse. This has 2 effects. One is that he swells a lot more than he normally would but also that it does to some degree protect his lungs from having as much fluid so he is not quite short of breath as he would be without the valvular incompetence. In any case it is dangerous for him to have all this fluid on.
--- NOTE | 2025-01-06 08:10 | PC.NURSE ---
Pt to dialysis via bed
[2025-01-06 08:26] LABS: Glucose Point of Care 135 mg/dl (65-105)
[2025-01-06] MEDS: HEPARIN SODIUM 1,000 UNITS/ML VIAL 1000 UNITS IV PUSH (08:29)
[2025-01-06] MEDS: HEPARIN SODIUM 1,000 UNITS/ML VIAL 500 UNITS IV PUSH ×2 (08:32→09:32)
--- NOTE | 2025-01-06 09:41 | P.PNIM_ITS ---
Progress Note: A&P Assessment and Plan (1) Acute exacerbation of CHF (congestive heart failure): Qualifiers: Heart failure type: unspecified Qualified Code(s): I50.9 - Heart failure, unspecified Code(s): I50.9 - Heart failure, unspecified Status: Acute (2) Coronary artery disease: Qualifiers: Coronary Disease-Associated Artery/Lesion type: bypass graft [place] vs. transplanted heart: [place] heart Associated angina: without angina Qualified Code(s): I25.810 - Atherosclerosis of coronary artery bypass graft(s) without angina pectoris Code(s): I25.10 - Atherosclerotic heart disease of [place] coronary artery without angina pectoris Status: Acute (3) Elevated troponin: Code(s): R79.89 - Other specified abnormal findings of blood chemistry Status: Acute Plan Acute respiratory failure with hypoxemic and hypercapnia Resulting from pneumonia and pulmonary edema Start DuoNeb scheduled albuterol nebulizer p.r.n. Patient is on BiPAP Follow-up ABG Community-acquired pneumonia J18.9 - Pneumonia, unspecified organism Status: Resolved Assessment and Plan: chest x-ray showing bilateral basal pneumonia, bilateral interstitial thickening suggestive of pneumonitis versus pulmonary edema Continue Rocephin and azithromycin End-stage renal disease on hemodialysis: Code(s): N18.6 - End stage renal disease; Z99.2 - Dependence on renal dialysis Status: Acute Assessment and Plan: initial creatinine 5.80, EGFR 10, patient is overloaded with fluid and pulmonary edema Consult linen room supervisor for dialysis Elevated troponin: Code(s): R79.89 - Other specified abnormal findings of blood chemistry Status: Acute Assessment and Plan: Patient denies chest pain troponin 0.088 likely demand ischemia from fluid overload (5) Altered mental status: Code(s): R41.82 - Altered mental status, unspecified Status: Acute Assessment and Plan: Patient difficult to arouse after dialysis today. Patient expressed in the ER that around 1 a.m. he couldn't speak which lasted for about 2 hours. He has had multiple falls in the past, some that were evaluated in our ER. Possible due to respiratory failure, uremia Concerns for seizure activity with post ictal state consult neurology. Pending EEG Neuro check Today mental status improving, able to answer questions, alert oriented IDDM (insulin dependent diabetes mellitus): Status: Chronic Assessment and Plan: Uncontrolled type 2 diabetes. Blood sugar 304 Continue Lantus 6 units daily, insulin sliding scale a.c. and q.h.s. Diabetes I (7) Hypertension: Code(s): I10 - Essential (primary) hypertension Status: Acute Assessment and Plan: * blood pressure ranging 128/61 to 144/77 * continue Coreg and amlodipine * * (8) Dyslipidemia: Code(s): E78.5 - Hyperlipidemia, unspecified Status: Acute Assessment and Plan: * continue aspirin and atorvastatin * (9) CARITO (obstructive sleep apnea): Code(s): G47.33 - Obstructive sleep apnea (adult) (pediatric) Status: Acute Assessment and Plan: * BiPAP at night due to hypercapnia and hypoxia Subjective Date/time seen: 01/06/25 09:41 Interval history: Patient is afebrile, blood pressure stable, patient feels dyspnea is improving, patient underwent hemodialysis today. 4 L fluid was removed. Yesterday patient was on dialysis, and 3 L was removed yesterday. Patient still has some cough with scant phlegm Exam Narrative: GENERAL: Pleasant, in no acute distress. Well-nourished. - EYES: EOMI. Anicteric. - HENT: Moist mucous membranes. - LUNGS: Coarse breath sound bilaterall y - CARDIOVASCULAR: Regular rate and rhyth m. No murmur. No JVD. - ABDOMEN: Soft, non-tender and non-dist ended. No palpable masses. - EXTREMITIES: No edema. Peripheral puls es 2+. Non-tender. - NEUROLOGIC: No focal neurological defi cits. CN II-XII grossly intact. - PSYCHIATRIC: Awake, Alert and oriented x 3. Appropriate mood and affect. - SKIN: No rashes or lesions. Warm. - LYMPH: No cervical lymphadenopathy. Objective Data Vital Signs Vital Signs: Vital Signs - 24 hr 01/05/25 11:47 01/05/25 11:47 01/05/25 13:30 Temperature Pulse Rate 84 Respiratory Rate 22 H Blood Pressure 158/56 H Pulse Oximetry 100 100 95 Oxygen Delivery Nasal Cannula BiPAP Oxygen Flow Rate 2 Fraction of Inspired Oxygen 01/05/25 13:46 01/05/25 13:51 01/05/25 14:45 Temperature Pulse Rate 72 85 Respiratory Rate 22 H 18 Blood Pressure 160/76 H Pulse Oximetry 100 98 100 Oxygen Delivery BiPAP BiPAP Oxygen Flow Rate Fraction of Inspired Oxygen 01/05/25 15:05 01/05/25 15:05 01/05/25 15:15 Temperature 97.5 F L Pulse Rate 81 69 Respiratory Rate 18 Blood Pressure 126/67 141/76 H Pulse Oximetry 100 Oxygen Delivery Oxygen Flow Rate Fraction of Inspired Oxygen 24 01/05/25 15:26 01/05/25 15:30 01/05/25 15:45 Temperature Pulse Rate 79 75 Respiratory Rate 22 H Blood Pressure 149/73 H 158/85 H Pulse Oximetry 97 Oxygen Delivery BiPAP Oxygen Flow Rate Fraction of Inspired Oxygen 01/05/25 16:00 01/05/25 16:00 01/05/25 16:15 Temperature Pulse Rate 78 84 81 Respiratory Rate Blood Pressure 164/94 H 143/81 H Pulse Oximetry Oxygen Delivery Oxygen Flow Rate Fraction of Inspired Oxygen 01/05/25 16:30 01/05/25 16:45 01/05/25 17:00 Temperature Pulse Rate 81 88 81 Respiratory Rate Blood Pressure 144/77 H 133/55 L 128/61 Pulse Oximetry Oxygen Delivery Oxygen Flow Rate Fraction of Inspired Oxygen 01/05/25 17:15 01/05/25 17:30 01/05/25 17:45 Temperature Pulse Rate 82 88 86 Respiratory Rate Blood Pressure 147/48 H 134/56 L 128/29 L Pulse Oximetry Oxygen Delivery Oxygen Flow Rate Fraction of Inspired Oxygen 01/05/25 18:00 01/05/25 18:00 01/05/25 18:15 Temperature Pulse Rate 81 86 85 Respiratory Rate Blood Pressure 131/63 155/88 H Pulse Oximetry Oxygen Delivery Oxygen Flow Rate Fraction of Inspired Oxygen 01/05/25 18:30 01/05/25 18:43 01/05/25 19:09 Temperature 97.9 F 95.9 F L Pulse Rate 87 80 86 Respiratory Rate 16 22 H 22 H Blood Pressure 148/78 H 152/73 H Pulse Oximetry 100 98 100 Oxygen Delivery BiPAP Oxygen Flow Rate Fraction of Inspired Oxygen 01/05/25 20:00 01/05/25 20:00 01/05/25 20:00 Temperature 97.6 F Pulse Rate 89 86 Respiratory Rate 24 H Blood Pressure 175/80 H Pulse Oximetry 98 100 Oxygen Delivery BiPAP Oxygen Flow Rate Fraction of Inspired Oxygen 24 01/05/25 20:24 01/05/25 20:24 01/05/25 20:24 Temperature Pulse Rate 82 82 Respiratory Rate 24 H 24 H Blood Pressure Pulse Oximetry 99 99 Oxygen Delivery BiPAP BiPAP Oxygen Flow Rate Fraction of Inspired Oxygen 24 01/05/25 20:43 01/05/25 22:00 01/05/25 22:44 Temperature Pulse Rate 87 86 72 Respiratory Rate 20 23 H Blood Pressure Pulse Oximetry 100 Oxygen Delivery BiPAP Oxygen Flow Rate Fraction of Inspired Oxygen 01/05/25 22:58 01/05/25 23:00 01/05/25 23:35 Temperature 97.7 F Pulse Rate 86 Respiratory Rate 26 H Blood Pressure 151/70 H Pulse Oximetry 98 100 100 Oxygen Delivery BiPAP BiPAP Oxygen Flow Rate Fraction of Inspired Oxygen 21 24 01/06/25 00:00 01/06/25 01:43 01/06/25 01:43 Temperature Pulse Rate 84 80 80 Respiratory Rate 23 H 23 H Blood Pressure Pulse Oximetry 97 Oxygen Delivery BiPAP Oxygen Flow Rate Fraction of Inspired Oxygen 01/06/25 02:00 01/06/25 02:00 01/06/25 03:05 Temperature Pulse Rate 85 82 Respiratory Rate 21 H Blood Pressure Pulse Oximetry 94 Oxygen Delivery BiPAP Oxygen Flow Rate Fraction of Inspired Oxygen 21 01/06/25 04:00 01/06/25 04:00 01/06/25 04:54 Temperature 97.8 F Pulse Rate 79 82 82 Respiratory Rate 20 21 H Blood Pressure 172/63 H Pulse Oximetry 94 97 Oxygen Delivery BiPAP Oxygen Flow Rate Fraction of Inspired Oxygen 01/06/25 06:00 01/06/25 08:15 01/06/25 08:32 Temperature 98.6 F Pulse Rate 88 84 81 Respiratory Rate 20 Blood Pressure 159/73 H 128/65 Pulse Oximetry 97 Oxygen Delivery Oxygen Flow Rate Fraction of Inspired Oxygen 01/06/25 08:45 01/06/25 09:00 01/06/25 09:15 Temperature Pulse Rate 89 87 91 Respiratory Rate Blood Pressure 136/53 L 137/60 128/69 Pulse Oximetry Oxygen Delivery Oxygen Flow Rate Fraction of Inspired Oxygen 01/06/25 09:30 Temperature Pulse Rate 91 Respiratory Rate Blood Pressure 154/76 H Pulse Oximetry Oxygen Delivery Oxygen Flow Rate Fraction of Inspired Oxygen Intake/Output Intake/Output: Intake & Output 01/03/25 01/04/25 01/05/25 01/06/25 23:59 23:59 23:59 23:59 Intake Total 50 0 Output Total 3400 0 Balance -3350 0 Meds/Results Medications: Active Medications Generic Name Dose Route Start Last Admin Trade Name Freq PRN Reason Stop Dose Admin Acetaminophen 650 mg 01/05/25 14:36 Acetaminophen 325 Mg Tablet PO Q4H PRN Mild Pain (1-3) or Fever Hydrocodone Bitart/Acetaminophen 1 tab 01/05/25 14:36 Hydrocodone/Acetaminophen (*Crx) 5-325 Mg Tablet PO Q4H PRN Pain Rated 4-6 Albuterol/Ipratropium 3 ml 01/05/25 20:00 01/06/25 08:31 Ipratropium 0.5 Mg/Albuterol Sulfate 2.5 Mg Ampul.Neb 3 Ml INHALATION Not Given Q6HRT [facility] Aspirin 81 mg 01/06/25 09:00 Aspirin 81 Mg Enteric Tablet PO DAILY [facility] Atorvastatin Calcium 20 mg 01/06/25 09:00 Atorvastatin 20 Mg Tablet PO DAILY [facility] Carvedilol 25 mg 01/05/25 21:00 01/05/25 20:24 Carvedilol 25 Mg Tablet PO Not Given Q12HR [facility] Dextrose 12.5 gm 01/05/25 17:06 Dextrose 50% 25 Gm/50 Ml Syringe IV PUSH PRN PRN Hypoglycemia Protocol Enoxaparin Sodium 30 mg 01/06/25 09:00 Enoxaparin 30 Mg/0.3 Ml Syringe SUB-Q DAILY [facility] Epoetin David-epbx 10,000 units 01/06/25 09:00 Epoetin David-Epbx 10,000 Units/Ml Vial IV PUSH TUTHSA@09 [facility] Finasteride 5 mg 01/06/25 09:00 Finasteride 5 Mg Tablet PO QAM [facility] Furosemide 80 mg 01/06/25 09:00 Furosemide 80 Mg Tablet PO BID [facility] Glucagon 1 mg 01/05/25 17:06 Glucagon For Inj 1 Mg Vial IM PRN PRN Hypoglycemia Protocol Glucose 15 gm 01/05/25 17:06 Glucose Oral Gel 15 Gm Of Glucse In 37.5 Gm Tube PO PRN PRN Hypoglycemia Protocol Ceftriaxone Sodium 1 gm in 50 mls @ 100 mls/hr 01/06/25 14:00 Rocephin 1 Gm/Ns 50 Ml IVPB Q24H [facility] Azithromycin 500 mg in 250 mls @ 250 mls/hr 01/06/25 15:00 Zithromax IVPB Q24H DAVID Albumin Human 50 mls @ 999 mls/hr 01/05/25 13:40 Albutein IVPB 01/06/25 13:39 Q10M PRN HYPOTENSION Dextrose 1,000 mls @ 100 mls/hr 01/05/25 17:06 Dextrose 5% 1,000 Ml IVPB PRN PRN Hypoglycemia Protocol Albumin Human 50 mls @ 999 mls/hr 01/06/25 06:59 Albutein IVPB 01/07/25 06:58 Q10M PRN HYPOTENSION Insulin Aspart 4 - 8 units 01/06/25 08:00 01/06/25 08:27 Insulin Aspart (*Bkc) 100 Units/Ml SUB-Q Not Given TIDWM [facility] Protocol Insulin Aspart 2 - 4 units 01/05/25 21:00 01/05/25 20:24 Insulin Aspart (*Bkc) 100 Units/Ml SUB-Q Not Given HS [facility] Protocol Insulin Glargine 6 units 01/06/25 09:00 Insulin Glargine (*Bkc) 100 Units/Ml SUB-Q DAILY [facility] Loratadine 10 mg 01/06/25 09:00 Loratadine 10 Mg Tablet PO QAM [facility] Ondansetron HCl 4 mg 01/05/25 16:47 Ondansetron Inj 4 Mg/2 Ml Vial IV PUSH Q6H PRN Nausea And Vomiting Sevelamer Carbonate 3.2 gm 01/06/25 08:00 01/06/25 08:27 Sevelamer Carbonate 0.8 Gm Oral Powder Packet PO Not Given TIDWM [facility] Tamsulosin HCl 0.4 mg 01/05/25 21:00 01/05/25 20:24 Tamsulosin Hcl 0.4 Mg Capsule PO Not Given QHS [facility] Radiology Results: ITS Impressions Chest X-Ray 01/05/25 10:35 IMPRESSION: Bilateral basal pneumonia. Bilateral interstitial thickening suggestive of pneumonitis versus pulmonary edema. Head/Neck CTA 01/05/25 10:49 IMPRESSION: 1. CTA neck. Percent stenosis per NASCET criteria is 25% on the right and 10% on the left. 2. CTA of the head with no occlusion or significant stenosis. 3. 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 Labs Labs: Laboratory Results - last 24 hr 01/05/25 01/05/25 01/05/25 10:12 10:13 10:33 WBC 6.1 RBC 3.35 L Hgb 8.9 L Hct 30.1 L MCV 89.9 MCH 26.6 MCHC 29.6 L RDW 19.0 H Plt Count 197 MPV 10.8 H Immature Gran % (Auto) 0.7 H Neut % (Auto) 81.3 H Lymph % (Auto) 7.0 L [place] % (Auto) 9.0 H Eos % (Auto) 1.3 Baso % (Auto) 0.7 Lymph # (Auto) 0.43 L [place] # (Auto) 0.6 Eos # (Auto) 0.1 Baso # (Auto) 0.0 Abs Immat Gran (auto) 0.04 H Absolute Neuts (auto) 5.0 Absolute Nucleated RBC 0.000 Band Neutrophils % Not Reportable Nucleated RBC % 0.0 Platelet Estimate Adequate Hypochromasia 1+ Schistocytes None seen PT 15.2 H INR 1.2 APTT 31.8 Puncture Site Right radial ABG pH 7.347 L ABG pCO2 46.6 H ABG pO2 56.9 L ABG PO2/FiO2 Ratio 2.71 ABG HCO3 25.0 ABG O2 Saturation 88.0 L ABG O2 Content 11.2 L ABG Base Excess -0.8 A-a Gradient 37.0 Oxyhemoglobin 83.8 L* Carboxyhemoglobin Methemoglobin Reduced Hemoglobin Total Hemoglobin 9.5 L O2 Delivery Device Room air O2 Liters/Min Not Reportable Vent Rate FiO2 21 Expiratory Pressure Inspiratory Pressure Sodium 131 L Potassium 4.2 Chloride 91 L Carbon Dioxide 30 Anion Gap 10 BUN 44 H D Creatinine 5.57 H 5.80 H Estim Creat Clear Calc Not Reportable Not Reportable Estimated GFR 10 L 10 L Glucose 304 H POC Capillary Glucose Lactic Acid Calcium 8.9 Magnesium Total Bilirubin 0.3 AST 16 L ALT 20 Alkaline Phosphatase 77 Ammonia Troponin I 0.088 H* Total Protein 6.0 L Albumin 3.7 TSH Influenza A (RT-PCR) Influenza B (RT-PCR) RSV (RT-PCR) SARS-CoV-2 RNA (RT-PCR) 01/05/25 01/05/25 01/05/25 13:15 13:50 20:06 WBC RBC Hgb Hct MCV MCH MCHC RDW Plt Count MPV Immature Gran % (Auto) Neut % (Auto) Lymph % (Auto) [place] % (Auto) Eos % (Auto) Baso % (Auto) Lymph # (Auto) [place] # (Auto) Eos # (Auto) Baso # (Auto) Abs Immat Gran (auto) Absolute Neuts (auto) Absolute Nucleated RBC Band Neutrophils % Nucleated RBC % Platelet Estimate Hypochromasia Schistocytes PT INR APTT Puncture Site Right radial ABG pH 7.322 L ABG pCO2 54.8 H ABG pO2 78.0 L ABG PO2/FiO2 Ratio 2.79 ABG HCO3 27.7 H ABG O2 Saturation 94.4 L ABG O2 Content 12.2 L ABG Base Excess 1.1 A-a Gradient 57.0 Oxyhemoglobin 91.4 Carboxyhemoglobin 2.4 H Methemoglobin 0.3 Reduced Hemoglobin 5.9 H Total Hemoglobin 9.4 L O2 Delivery Device Nasal cannula O2 Liters/Min 2.0 Vent Rate FiO2 28 Expiratory Pressure Inspiratory Pressure Sodium Potassium Chloride Carbon Dioxide Anion Gap BUN Creatinine Estim Creat Clear Calc Estimated GFR Glucose POC Capillary Glucose 208 H Lactic Acid Calcium Magnesium Total Bilirubin AST ALT Alkaline Phosphatase Ammonia Troponin I Total Protein Albumin TSH Influenza A (RT-PCR) Negative Influenza B (RT-PCR) Negative RSV (RT-PCR) Negative SARS-CoV-2 RNA (RT-PCR) Negative 01/05/25 01/05/25 01/05/25 20:25 22:27 23:20 WBC RBC Hgb Hct MCV MCH MCHC RDW Plt Count MPV Immature Gran % (Auto) Neut % (Auto) Lymph % (Auto) [place] % (Auto) Eos % (Auto) Baso % (Auto) Lymph # (Auto) [place] # (Auto) Eos # (Auto) Baso # (Auto) Abs Immat Gran (auto) Absolute Neuts (auto) Absolute Nucleated RBC Band Neutrophils % Nucleated RBC % Platelet Estimate Hypochromasia Schistocytes PT INR APTT Puncture Site Right brachial ABG pH 7.354 ABG pCO2 46.9 H ABG pO2 102.0 H ABG PO2/FiO2 Ratio 4.25 ABG HCO3 25.5 ABG O2 Saturation 97.4 ABG O2 Content 12.6 L ABG Base Excess -0.2 A-a Gradient 13.3 Oxyhemoglobin 95.1 Carboxyhemoglobin 1.9 Methemoglobin 0.3 Reduced Hemoglobin 2.7 Total Hemoglobin 9.3 L O2 Delivery Device Non-invasive vent O2 Liters/Min Not Reportable Vent Rate 20 FiO2 24 Expiratory Pressure 8 Inspiratory Pressure 14 Sodium Potassium Chloride Carbon Dioxide Anion Gap BUN Creatinine Estim Creat Clear Calc Estimated GFR Glucose POC Capillary Glucose Lactic Acid 1.1 Calcium Magnesium 2.0 Total Bilirubin AST ALT Alkaline Phosphatase Ammonia < 9 L Troponin I Total Protein Albumin TSH 1.270 Influenza A (RT-PCR) Influenza B (RT-PCR) RSV (RT-PCR) SARS-CoV-2 RNA (RT-PCR) 01/06/25 01/06/25 04:26 07:37 WBC 6.8 RBC 2.95 L Hgb 7.9 L Hct 25.6 L MCV 86.8 MCH 26.8 MCHC 30.9 L RDW 19.2 H Plt Count 209 MPV 10.4 Immature Gran % (Auto) 0.7 H Neut % (Auto) 74.9 H Lymph % (Auto) 9.3 L [place] % (Auto) 11.7 H Eos % (Auto) 2.7 Baso % (Auto) 0.7 Lymph # (Auto) 0.63 L [place] # (Auto) 0.8 H Eos # (Auto) 0.2 Baso # (Auto) 0.1 Abs Immat Gran (auto) 0.05 H Absolute Neuts (auto) 5.1 Absolute Nucleated RBC 0.000 Band Neutrophils % Nucleated RBC % 0.0 Platelet Estimate Hypochromasia Schistocytes PT INR APTT Puncture Site ABG pH ABG pCO2 ABG pO2 ABG PO2/FiO2 Ratio ABG HCO3 ABG O2 Saturation ABG O2 Content ABG Base Excess A-a Gradient Oxyhemoglobin Carboxyhemoglobin Methemoglobin Reduced Hemoglobin Total Hemoglobin O2 Delivery Device O2 Liters/Min Vent Rate FiO2 Expiratory Pressure Inspiratory Pressure Sodium 132 L Potassium 4.3 Chloride 93 L Carbon Dioxide 28 Anion Gap 11 BUN 49 H Creatinine 6.15 H Estim Creat Clear Calc 11 Estimated GFR 9 L Glucose 163 H POC Capillary Glucose 135 H Lactic Acid Calcium 8.8 Magnesium 1.9 Total Bilirubin 0.3 AST 14 L ALT 16 Alkaline Phosphatase 65 Ammonia Troponin I Total Protein 6.0 L Albumin 3.1 L TSH Influenza A (RT-PCR) Influenza B (RT-PCR) RSV (RT-PCR) SARS-CoV-2 RNA (RT-PCR)
[2025-01-06 09:51] LABS: Iron 58 ug/dL (49-181)
--- NOTE | 2025-01-06 09:53 | PM.EVENT ---
Event Note Event Note Event Note: pt is on HD trang it well. seen at 9:45am. he is still awake and interactive. he looks baseline right now.
[2025-01-06 09:54] LABS: Percent Iron Saturation 20 % (20-50)
[2025-01-06 10:12] LABS: Hepatitis B Surface Antigen Negative (Negative)
[2025-01-06] MEDS: EPOETIN ALFA-EPBX 10,000 UNITS/ML VIAL 10000 UNITS IV PUSH (11:30)
--- NOTE | 2025-01-06 12:18 | P.CDI_ITS ---
CDI Query Clarification Request Altered mental status has been documented in progress note. Please clarify und erlying possible cause of AMS ER documented acute metabolic encephalopathy, another provider documented (5) Altered mental status: Code(s): R41.82 - Altered mental status, unspecified Status: Acute Assessment and Plan: Patient difficult to arouse after dialysis today. Patient expressed in the ER that around 1 a.m. he couldn't speak which lasted for about 2 hours. He has had multiple falls in the past, some that were evaluated in our ER. Possible due to respiratory failure, uremia Concerns for seizure activity with post ictal state consult neurology. Pending EEG Neuro check Please clarify acuity of alteration in mental status: ? -Acute ? -Chronic ? -Acute and chronic ? -Unable to determine ? -Other, please specify Please clarify the underlying possible/probable/suspected cause for the altered mental status in the progress notes: ? -Encephalopathy (metabolic, COVID, hepatic, hypoxic, uremic, [place], other) ? -Neurologic condition (CVA/TIA/NPH/seizure) ? -Electrolyte/metabolic imbalance/dehydration ? -Infectious process (i.e. meningitis/encephalitis) ? -Psychiatric condition ? -Respiratory condition ? -Dementia ? -Other, please specify ? -Unknown/unable to determine <Rosie Richard RN - Last Filed: 01/06/25 12:40> Clarified Diagnosis Clarified Diagnosis: acute <Venkata Turpin MD - Last Filed: 01/06/25 15:23>
--- NOTE | 2025-01-06 12:33 | WPDNEURCNPN ---
Assessment and Plan Assessment and plan (1) Type 2 diabetes mellitus, with long-term current use of insulin: Code(s): E11.9 - Type 2 diabetes mellitus without complications; Z79.4 - detention (current) use of insulin Status: Acute (2) Altered mental status: Code(s): R41.82 - Altered mental status, unspecified Status: Acute (3) Anasarca: Code(s): R60.1 - Generalized edema Status: Acute (4) Atrial fibrillation: Code(s): I48.91 - Unspecified atrial fibrillation Status: Chronic (5) End stage renal disease: Code(s): N18.6 - End stage renal disease Status: Chronic (6) Fall: Code(s): W19.XXXA - Unspecified fall, initial encounter Status: Acute (7) Seizure disorder: Code(s): G40.909 - Epilepsy, unspecified, not intractable, without status epilepticus Status: Acute Plan 1. Rule out the possibility of seizure 2 possibility of orthostatic hypotension secondary to underlying multiple problems 3. 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 Plan is to obtain the EEG inpatient and EMG nerve conduction study as an outpatient once the patient is discharged and while he is in the hospital check the blood pressures supine and upright 3 times a day document whether he has orthostatic hypotension or not. Consult date: 01/06/25 HPI: Sam Morrissey is a 79 year old male admitted to the hospital through the emergency room for the complaints of confusion and weakness and with information that around 1:00 a.m. unable to speak which lasted for 2hours in addition became more weak in his extremities which has been noted over the last several days ,he is only able to stand with assistance, has had multiple falls, and has had multiple visits in the emergency room as well. Most recent fall was about 2 days ago ,when he was getting off the toilet and bending over to pull up his pants. He did not become unconscious sustained an abrasion around the right eye, prior to this particular incident he has had a fall out of bed when he came to the emergency room and had a CT scan of the head. patient has been receiving only baby aspirin but no blood thinner he was found to have edema in all extremities and also around the eyes. In addition he was found to be hypoxic and receive the nasal cannula oxygen which improved his mental status. His medication included aspirin 81mg daily, carvedilol 25mg b.i.d., dulaglutide 1.5mg subQ weekly, amlodipine 10mg daily, atorvastatin 20mg daily, insulin 6units subQ daily Lantus U 100 in addition to 4units subQ t.i.d. a.c. he is not allergic to any medications. He has ongoing history of 1. Obstructive sleep apnea 2. Insulin-dependent diabetes mellitus 3. COPD 4. Coronary artery disease with peripheral vascular disease 5. Benign prostatic hyperplasia 6. End-stage renal disease on hemodialysis 7. Vitamin-D deficiency 8. Cardiac pacemaker , a peripheral artery angioplasty in March of 2023 with arteriovenous fistula in the left upper extremity 10. He has history of smoking 10 years smoked 100 smoking pack years but at present former smoker and 1 drink alcohol per week. Initial exam in the emergency room documented him to be chronically ill appearing ,with obesity but otherwise 2+ edema of all extremities, dialysis fistula in left upper extremity difficulties in lifting the left upper extremity off the bed vital signs normal with blood pressure 162/72 CBC normal creatinine 5.80, troponin 0.088, negative for routine viral infections, initial chest x-ray with bilateral basal pneumonia, CTA of the head and neck with 25% stenosis on the right and 10% on the left for CT of the head with no occlusion or aneurysm but severe stenosis in left vertebral artery in the lower segment. 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 Patient does have underlying dementia along the metabolic conditions. Most recently WBC 6.8 hemoglobin 7 point head neck CTA 25% right 10% in the left with negative CT of the head but severe stenosis of the left vertebral artery . Review of Systems Review of Systems: All systems reviewed & are unremarkable except as noted in HPI and below PMFSH Past Medical History Medical History Sinus pause (~09/2024) Bilateral shoulder pain Obstructive sleep apnea Insulin dependent type 2 diabetes mellitus Chronic obstructive pulmonary disease Coronary artery disease Benign prostatic hyperplasia Peripheral vascular disease (~03/2023) Internal hemorrhoid, bleeding Anemia End-stage renal disease on hemodialysis History of colon polyps Environmental allergies Vitamin D deficiency Dyslipidemia Essential (primary) hypertension Surgical History Surgical History History of cardiac pacemaker (~10/2024) due to symptomatic sinus pauses causing syncope History of hemorrhoidectomy Anorectal evaluation under anesthesia and excisional hemorrhoidectomy x3 12/14/23 SAW S/P peripheral artery angioplasty (~03/2023) status post balloon angioplasty of bilateral common and external iliac arteries status post left iliofemoral endarterectomy Arteriovenous fistula of left upper extremity (~2017) History of appendectomy (~1962) History of coronary artery bypass graft (~2013) Family History Family History Mother Diabetes mellitus Acute myocardial infarction Family history of congestive heart failure Father Hypertension Social History Social History Social History: Surrogate medical decision maker: Wilian Yuni, sibling. Code status: Full code. Caffeine- daily Smoking packs per day: 10 Smoking cigarettes per day: 200.0 Years smoked: 10 Smoking pack-years: 100.00 Smoking status: Former smoker Second hand tobacco smoke exposure: No Alcohol intake: never Drinks per week: 1 Alcohol use details: Maybe 2-3 per year Substance use: never Substance use type: does not use Do You Feel Safe in your Home?: Yes Lack of Transportation: No Lack of Food: Never True Current Housing: I Have Housing Concerned About Future Housing: No Difficulty Paying Gas/Electric Bills: No Difficulty Paying for Meds: No Currently Unemployed: No Education: Associate Degree Difficulty w/ Childcare or Family Care: No Living arrangements: with family Occupation/Education: retired Additional occupation/education comments: Retired from the [employer]. Spiritual care concerns: No Agree to blood products: Yes Meds Home Medications and Allergies Home Medications ?Medication ?Instructions ?Recorded ?Confirmed ?Type aspirin 81 mg tablet,delayed 81 mg PO DAILY 10/31/21 01/05/25 History release carvedilol 25 mg tablet 25 mg PO BID 10/31/21 01/05/25 History dulaglutide 1.5 mg/0.5 mL 1.5 mg subcut WEEKLY 10/31/21 01/05/25 History subcutaneous pen injector (Trulicity) insulin lispro 100 unit/mL 4 unit subcut .TIDAC 10/31/21 01/05/25 History subcutaneous pen loratadine 10 mg tablet (Claritin) 10 mg PO PRN 10/31/21 01/05/25 History amlodipine 10 mg tablet 10 mg PO DAILY 11/07/23 01/05/25 History insulin glargine 100 unit/mL (3 6 unit subcut DAILY 11/07/23 01/05/25 History mL) subcutaneous pen (Lantus Solostar U-100 Insulin) cinacalcet 90 mg PO DAILY 12/12/23 01/05/25 History cyclobenzaprine 10 mg tablet 10 mg PO TID PRN muscle spasm #30 10/07/24 01/05/25 Rx tabs atorvastatin 20 mg tablet 20 mg PO DAILY 12/21/24 01/05/25 History finasteride 5 mg tablet (Proscar) 5 mg PO QAM #30 tabs 12/23/24 01/05/25 Rx furosemide 80 mg tablet 80 mg PO BID #60 tabs 12/23/24 01/05/25 Rx sevelamer carbonate 0.8 gram oral 3.2 g PO TIDWM 30 days #60 ea 12/23/24 01/05/25 Rx powder packet tamsulosin 0.4 mg capsule 0.4 mg PO QHS #30 caps 12/23/24 01/05/25 Rx Allergies Allergy/AdvReac Type Severity Reaction Status Date / Time No Known Allergies Allergy Verified 12/20/24 08:13 Vital Signs Vital Signs - 24 hr 01/05/25 13:30 01/05/25 13:46 01/05/25 13:51 Temperature Pulse Rate 72 Respiratory Rate 22 H Blood Pressure Pulse Oximetry 95 100 98 Oxygen Delivery BiPAP BiPAP BiPAP Fraction of Inspired Oxygen 01/05/25 14:45 01/05/25 15:05 01/05/25 15:05 Temperature 36.4 C L Pulse Rate 85 81 Respiratory Rate 18 18 Blood Pressure 160/76 H 126/67 Pulse Oximetry 100 100 Oxygen Delivery Fraction of Inspired Oxygen 24 01/05/25 15:15 01/05/25 15:26 01/05/25 15:30 Temperature Pulse Rate 69 79 Respiratory Rate 22 H Blood Pressure 141/76 H 149/73 H Pulse Oximetry 97 Oxygen Delivery BiPAP Fraction of Inspired Oxygen 01/05/25 15:45 01/05/25 16:00 01/05/25 16:00 Temperature Pulse Rate 75 78 84 Respiratory Rate Blood Pressure 158/85 H 164/94 H Pulse Oximetry Oxygen Delivery Fraction of Inspired Oxygen 01/05/25 16:15 01/05/25 16:30 01/05/25 16:45 Temperature Pulse Rate 81 81 88 Respiratory Rate Blood Pressure 143/81 H 144/77 H 133/55 L Pulse Oximetry Oxygen Delivery Fraction of Inspired Oxygen 01/05/25 17:00 01/05/25 17:15 01/05/25 17:30 Temperature Pulse Rate 81 82 88 Respiratory Rate Blood Pressure 128/61 147/48 H 134/56 L Pulse Oximetry Oxygen Delivery Fraction of Inspired Oxygen 01/05/25 17:45 01/05/25 18:00 01/05/25 18:00 Temperature Pulse Rate 86 81 86 Respiratory Rate Blood Pressure 128/29 L 131/63 Pulse Oximetry Oxygen Delivery Fraction of Inspired Oxygen 01/05/25 18:15 01/05/25 18:30 01/05/25 18:43 Temperature 36.6 C Pulse Rate 85 87 80 Respiratory Rate 16 22 H Blood Pressure 155/88 H 148/78 H Pulse Oximetry 100 98 Oxygen Delivery BiPAP Fraction of Inspired Oxygen 01/05/25 19:09 01/05/25 20:00 01/05/25 20:00 Temperature 35.5 C L 36.4 C Pulse Rate 86 89 Respiratory Rate 22 H 24 H Blood Pressure 152/73 H 175/80 H Pulse Oximetry 100 98 100 Oxygen Delivery BiPAP Fraction of Inspired Oxygen 24 01/05/25 20:00 01/05/25 20:24 01/05/25 20:24 Temperature Pulse Rate 86 82 Respiratory Rate 24 H Blood Pressure Pulse Oximetry 99 99 Oxygen Delivery BiPAP BiPAP Fraction of Inspired Oxygen 24 01/05/25 20:24 01/05/25 20:43 01/05/25 22:00 Temperature Pulse Rate 82 87 86 Respiratory Rate 24 H 20 Blood Pressure Pulse Oximetry Oxygen Delivery Fraction of Inspired Oxygen 01/05/25 22:44 01/05/25 22:58 01/05/25 23:00 Temperature Pulse Rate 72 Respiratory Rate 23 H Blood Pressure Pulse Oximetry 100 98 100 Oxygen Delivery BiPAP BiPAP BiPAP Fraction of Inspired Oxygen 24 01/05/25 23:35 01/06/25 00:00 01/06/25 01:43 Temperature 36.5 C Pulse Rate 86 84 80 Respiratory Rate 26 H 23 H Blood Pressure 151/70 H Pulse Oximetry 100 97 Oxygen Delivery BiPAP Fraction of Inspired Oxygen 01/06/25 01:43 01/06/25 02:00 01/06/25 02:00 Temperature Pulse Rate 80 85 82 Respiratory Rate 23 H 21 H Blood Pressure Pulse Oximetry Oxygen Delivery Fraction of Inspired Oxygen 01/06/25 03:05 01/06/25 04:00 01/06/25 04:00 Temperature 36.6 C Pulse Rate 79 82 Respiratory Rate 20 Blood Pressure 172/63 H Pulse Oximetry 94 94 Oxygen Delivery BiPAP Fraction of Inspired Oxygen 21 01/06/25 04:54 01/06/25 06:00 01/06/25 08:00 Temperature Pulse Rate 82 88 91 Respiratory Rate 21 H Blood Pressure Pulse Oximetry 97 Oxygen Delivery BiPAP Fraction of Inspired Oxygen 01/06/25 08:00 01/06/25 08:15 01/06/25 08:32 Temperature 36.7 C 37.0 C Pulse Rate 92 84 81 Respiratory Rate 24 H 20 Blood Pressure 150/82 H 159/73 H 128/65 Pulse Oximetry 95 97 Oxygen Delivery Fraction of Inspired Oxygen 01/06/25 08:45 01/06/25 09:00 01/06/25 09:15 Temperature Pulse Rate 89 87 91 Respiratory Rate Blood Pressure 136/53 L 137/60 128/69 Pulse Oximetry Oxygen Delivery Fraction of Inspired Oxygen 01/06/25 09:30 01/06/25 09:45 01/06/25 10:00 Temperature Pulse Rate 91 82 81 Respiratory Rate Blood Pressure 154/76 H 152/69 H 145/80 H Pulse Oximetry Oxygen Delivery Fraction of Inspired Oxygen 01/06/25 10:00 01/06/25 10:15 01/06/25 10:30 Temperature Pulse Rate 85 87 79 Respiratory Rate Blood Pressure 143/64 H 161/73 H Pulse Oximetry Oxygen Delivery Fraction of Inspired Oxygen 01/06/25 10:45 01/06/25 11:00 01/06/25 11:15 Temperature Pulse Rate 85 81 89 Respiratory Rate Blood Pressure 144/79 H 162/83 H 159/87 H Pulse Oximetry Oxygen Delivery Fraction of Inspired Oxygen 01/06/25 11:30 01/06/25 11:45 01/06/25 12:00 Temperature Pulse Rate 89 70 88 Respiratory Rate Blood Pressure 159/87 H 155/75 H 153/61 H Pulse Oximetry Oxygen Delivery Fraction of Inspired Oxygen Exam Narrative: revealed him to be awake alert in no obvious acute distress, head normocephalic with no bruit, ear nose throat examination normal, neck supple with no cervical bruit no thyromegaly no lymphadenopathy, heart regular with no murmur, lungs clear to auscultation, abdomen is soft protuberant with normal bowel sounds, neurologically he is awake alert he knows that he is in the hospital ,he just had his dialysis, pupils round regular fieldsof the vision full ,extraocular movements full, face symmetrical ,,tongue midline, motor examination revealed him to be generally decreased strength 4/5 with sluggish reflexes and downgoing plantar responses, no evidence of cerebellar deficit, Decreased sensation testing. Results Labs 01/06/25 04:26 01/06/25 04:26 Labs: Short CBC 01/06/25 Range/Units 04:26 WBC 6.8 (4.5-10.0) K/mm3 Hgb 7.9 L (14.0-18.0) g/dL Hct 25.6 L (42.0-52.0) % Plt Count 209 (150-375) k/mm3 BMP 01/06/25 04:26 Sodium 132 L Potassium 4.3 Chloride 93 L Carbon Dioxide 28 BUN 49 H Creatinine 6.15 H Glucose 163 H Calcium 8.8 Liver Function 01/06/25 Range/Units 04:26 Total Bilirubin 0.3 (0.2-1.3) mg/dL AST 14 L (17-59) U/L ALT 16 (6-50) U/L Alkaline Phosphatase 65 (38-126) U/L Albumin 3.1 L (3.5-5.1) g/dL
--- NOTE | 2025-01-06 13:45 | PC.NURSE ---
Pt returned from dialysis via bed. No issues noted
[2025-01-06 14:36] LABS: Glucose Point of Care 135 mg/dl (65-105)
[2025-01-06] MEDS: INSULIN GLARGINE (*BKC) 100 UNITS/ML 6 UNITS SUB-Q (14:40)
[2025-01-06] MEDS: ENOXAPARIN 30 MG/0.3 ML SYRINGE SUB-Q (14:41)
[2025-01-06] MEDS: ASPIRIN 81 MG ENTERIC TABLET PO (14:42)
[2025-01-06] MEDS: LORATADINE 10 MG TABLET PO (14:42)
[2025-01-06] MEDS: FINASTERIDE 5 MG TABLET PO (14:42)
[2025-01-06] MEDS: ATORVASTATIN 20 MG TABLET PO (14:42)
[2025-01-06] MEDS: SEVELAMER CARBONATE 0.8 GM ORAL POWDER PACKET 3.2 GM PO ×2 (14:43→16:59)
[2025-01-06] MEDS: AZITHROMYCIN 500 MG/NS 250 ML 500 MG/250 ML BAG 250 MG IVPB (15:00)
[2025-01-06 15:58] LABS: Glucose Point of Care 329 mg/dl (65-105)
[2025-01-06] MEDS: FUROSEMIDE 80 MG TABLET PO (16:59)
[2025-01-06] MEDS: INSULIN ASPART (*BKC) 100 UNITS/ML SUB-Q (17:02)
[2025-01-06 20:27] LABS: Glucose Point of Care 302 mg/dl (65-105)
[2025-01-06] MEDS: TAMSULOSIN HCL 0.4 MG CAPSULE PO (22:50)
[2025-01-06] MEDS: carvediloL 25 MG TABLET PO (22:50)
[2025-01-06] MEDS: HYDROcodone/acetaminophen (*CRX) 5-325 MG TABLET 1 TAB PO (23:00)
[2025-01-07] VITALS (35 sets, daily range): BP systolic 125–151; BP diastolic 58–77; PULSE 76–97; RESP 16–24; TEMP 36.4–37.3; O2SAT 91–99
[2025-01-07] MEDS: IPRATROPIUM 0.5 MG/ALBUTEROL SULFATE 2.5 MG AMPUL.NEB 3 ML INHALATION ×3 (02:02→20:16)
[2025-01-07 04:35] LABS: Basophils Absolute Auto 0.1 K/mm3 (0.0-0.1); Basophils Percent Auto 1.1 % (0.2-1.2); Eosinophils Absolute Auto 0.1 K/mm3 (0-0.3); Eosinophils Percent Auto 1.3 % (0-4.4); Hematocrit 26.4 % (42.0-52.0); Immature Granulocyte Absolute 0.04 K/mm3 (0.00-0.031); Immature Granulocyte Percent A 0.7 % (0-0.5); Lymphocytes Absolute Auto 0.79 K/mm3 (0.9-3.2); Lymphocytes Percent Auto 14.4 % (18.3-44.2); Mean Corpuscular HGB Conc 30.3 g/dl (32-36); Mean Corpuscular Hemoglobin 27.2 pg (26-34); Mean Corpuscular Volume 89.8 fl (80-100); Mean Platelet Volume 10.5 fl (7.4-10.4); Monocytes Absolute Auto 0.9 K/mm3 (0.1-0.6); Neutrophils Absolute Auto 3.7 K/mm3 (1.3-6.7); Neutrophils Percent Auto 66.5 % (45.5-73.1); Platelet Count Result 203 k/mm3 (150-375); Red Blood Count 2.94 M/mm3 (4.6-6.20); Red Cell Distribution Width 20.1 % (11.5-14.5); White Blood Count 5.5 K/mm3 (4.5-10.0)
[2025-01-07 05:00] LABS: Alanine Aminotransferase 19 U/L (6-50); Albumin Level 3.2 g/dL (3.5-5.1); Alkaline Phosphatase 70 U/L (38-126); Anion Gap 9 mmol/L (4-12); Aspartate Amino Transferase 15 U/L (17-59); Bilirubin,Total 0.3 mg/dL (0.2-1.3); Blood Urea Nitrogen 34 mg/dL (9-20); Calcium 9.2 mg/dL (8.4-10.2); Carbon Dioxide 32 mmol/L (22-30); Chloride 95 mmol/L (98-107); Estimated CRCL calculation 13 ml/min; Estimated Glomerular Filt Rate 12; Glucose 144 mg/dL (65-110); Potassium 4.1 mmol/L (3.4-5.0); Sodium 136 mmol/L (137-145)
[2025-01-07 07:34] LABS: Glucose Point of Care 150 mg/dl (65-105)
--- NOTE | 2025-01-07 09:26 | P.PNIM_ITS ---
Progress Note: A&P Assessment and Plan (1) Acute exacerbation of CHF (congestive heart failure): Qualifiers: Heart failure type: unspecified Qualified Code(s): I50.9 - Heart failure, unspecified Code(s): I50.9 - Heart failure, unspecified Status: Acute (2) Coronary artery disease: Qualifiers: Associated angina: without angina Coronary Disease-Associated Artery/Lesion type: bypass graft [place] vs. transplanted heart: [place] heart Qualified Code(s): I25.810 - Atherosclerosis of coronary artery bypass graft(s) without angina pectoris Code(s): I25.10 - Atherosclerotic heart disease of [place] coronary artery without angina pectoris Status: Acute (3) Elevated troponin: Code(s): R79.89 - Other specified abnormal findings of blood chemistry Status: Acute Plan Acute respiratory failure with hypoxemic and hypercapnia Resulting from pneumonia and pulmonary edema Start DuoNeb scheduled albuterol nebulizer p.r.n. Patient is on BiPAP Follow-up ABG: Hypoxemic and hypercapnic respiratory failure Off BiPAP Community-acquired pneumonia J18.9 - Pneumonia, unspecified organism Status: Resolved Assessment and Plan: chest x-ray showing bilateral basal pneumonia, bilateral interstitial thickening suggestive of pneumonitis versus pulmonary edema Continue Rocephin and azithromycin End-stage renal disease on hemodialysis: Code(s): N18.6 - End stage renal disease; Z99.2 - Dependence on renal dialysis Status: Acute Assessment and Plan: initial creatinine 5.80, EGFR 10, patient is overloaded with fluid and pulmonary edema Consult digital communications manager for dialysis Elevated troponin: Code(s): R79.89 - Other specified abnormal findings of blood chemistry Status: Acute Assessment and Plan: Patient denies chest pain troponin 0.088 likely demand ischemia from fluid overload (5) Altered mental status: Code(s): R41.82 - Altered mental status, unspecified Status: Acute Assessment and Plan: Patient difficult to arouse after dialysis before arrival to the ED Patient expressed in the ER that around 1 a.m. he couldn't speak which lasted for about 2 hours. He has had multiple falls in the past, some that were evaluated in our ER. Possible due to respiratory failure, uremia Concerns for seizure activity with post ictal state per neurologist evaluation Pending EEG Neuro check: No focal deficits or edema sensation Patient is alert oriented x3, able to answer question and follow commands, no focal weakness. Mental status back to normal on 01/07 IDDM (insulin dependent diabetes mellitus): Status: Chronic Assessment and Plan: Uncontrolled type 2 diabetes. Blood sugar 304 Continue Lantus 6 units daily, insulin sliding scale a.c. and q.h.s. Well controlled now 01/07 (7) Hypertension: Code(s): I10 - Essential (primary) hypertension Status: Acute Assessment and Plan: Uncontrolled blood pressure ranging 128/61 to 144/77 continue Coreg and amlodipine * * (8) Dyslipidemia: Code(s): E78.5 - Hyperlipidemia, unspecified Status: Acute Assessment and Plan: * continue aspirin and atorvastatin * (9) CARITO (obstructive sleep apnea): Code(s): G47.33 - Obstructive sleep apnea (adult) (pediatric) Status: Acute Assessment and Plan: * BiPAP at night due to hypercapnia and hypoxia Subjective Date/time seen: 01/07/25 09:26 Interval history: Patient is afebrile, blood pressure stable, patient feels dyspnea is improving, patient underwent hemodialysis today. Patient is alert oriented x3 today, denies focal weakness, vision change. Patient still has some cough with scant phlegm Current patient is on room air Exam Narrative: GENERAL: Pleasant, in no acute distress. Well-nourished. - EYES: EOMI. Anicteric. - HENT: Moist mucous membranes. - LUNGS: Coarse breath sound bilaterall y - CARDIOVASCULAR: Regular rate and rhyth m. No murmur. No JVD. - ABDOMEN: Soft, non-tender and non-dist ended. No palpable masses. - EXTREMITIES: No edema. Peripheral puls es 2+. Non-tender. - NEUROLOGIC: No focal neurological defi cits. CN II-XII grossly intact. - PSYCHIATRIC: Awake, Alert and oriented x 3. Appropriate mood and affect. - SKIN: No rashes or lesions. Warm. - LYMPH: No cervical lymphadenopathy. Objective Data Vital Signs Vital Signs: Vital Signs - 24 hr 01/06/25 09:30 01/06/25 09:45 01/06/25 10:00 Temperature Pulse Rate 91 82 81 Respiratory Rate Blood Pressure 154/76 H 152/69 H 145/80 H Pulse Oximetry Oxygen Delivery Fraction of Inspired Oxygen 01/06/25 10:00 01/06/25 10:15 01/06/25 10:30 Temperature Pulse Rate 85 87 79 Respiratory Rate Blood Pressure 143/64 H 161/73 H Pulse Oximetry Oxygen Delivery Fraction of Inspired Oxygen 01/06/25 10:45 01/06/25 11:00 01/06/25 11:15 Temperature Pulse Rate 85 81 89 Respiratory Rate Blood Pressure 144/79 H 162/83 H 159/87 H Pulse Oximetry Oxygen Delivery Fraction of Inspired Oxygen 01/06/25 11:30 01/06/25 11:45 01/06/25 12:00 Temperature Pulse Rate 89 70 88 Respiratory Rate Blood Pressure 159/87 H 155/75 H 153/61 H Pulse Oximetry Oxygen Delivery Fraction of Inspired Oxygen 01/06/25 12:00 01/06/25 12:00 01/06/25 12:05 Temperature 97.7 F Pulse Rate 84 94 85 Respiratory Rate 24 H Blood Pressure 154/62 H 176/81 H Pulse Oximetry 94 Oxygen Delivery Fraction of Inspired Oxygen 01/06/25 12:21 01/06/25 13:50 01/06/25 13:50 Temperature 98.4 F Pulse Rate 87 85 85 Respiratory Rate 20 20 20 Blood Pressure 151/67 H Pulse Oximetry 95 96 Oxygen Delivery Room Air Fraction of Inspired Oxygen 01/06/25 14:00 01/06/25 14:00 01/06/25 16:00 Temperature 98.2 F Pulse Rate 96 96 98 Respiratory Rate 20 16 Blood Pressure 131/67 Pulse Oximetry 92 Oxygen Delivery Fraction of Inspired Oxygen 01/06/25 16:00 01/06/25 18:00 01/06/25 19:51 Temperature 98.6 F Pulse Rate 91 95 98 Respiratory Rate 18 Blood Pressure 132/56 L Pulse Oximetry 92 Oxygen Delivery Fraction of Inspired Oxygen 01/06/25 19:58 01/06/25 19:58 01/06/25 20:00 Temperature Pulse Rate 93 90 Respiratory Rate 20 18 Blood Pressure Pulse Oximetry 90 96 Oxygen Delivery Room Air Room Air Fraction of Inspired Oxygen 21 01/06/25 20:00 01/06/25 20:08 01/06/25 22:00 Temperature Pulse Rate 102 H 96 80 Respiratory Rate 20 Blood Pressure Pulse Oximetry Oxygen Delivery Fraction of Inspired Oxygen 01/06/25 23:43 01/07/25 00:00 01/07/25 00:00 Temperature 98.2 F Pulse Rate 90 90 76 Respiratory Rate 18 18 Blood Pressure 124/55 L Pulse Oximetry 96 96 Oxygen Delivery Room Air Fraction of Inspired Oxygen 21 01/07/25 02:00 01/07/25 02:02 01/07/25 02:12 Temperature Pulse Rate 80 88 83 Respiratory Rate 20 20 Blood Pressure Pulse Oximetry Oxygen Delivery Fraction of Inspired Oxygen 01/07/25 03:54 01/07/25 04:00 01/07/25 04:00 Temperature 98.0 F Pulse Rate 82 82 87 Respiratory Rate 18 18 Blood Pressure 135/66 Pulse Oximetry 91 91 Oxygen Delivery Room Air Fraction of Inspired Oxygen 21 01/07/25 06:00 01/07/25 08:00 01/07/25 08:16 Temperature 98.3 F Pulse Rate 90 85 Respiratory Rate 20 Blood Pressure 137/58 L Pulse Oximetry 97 94 Oxygen Delivery Room Air Fraction of Inspired Oxygen 01/07/25 08:16 01/07/25 08:25 Temperature Pulse Rate 89 82 Respiratory Rate 20 22 H Blood Pressure Pulse Oximetry Oxygen Delivery Fraction of Inspired Oxygen Intake/Output Intake/Output: Intake & Output 01/04/25 01/05/25 01/06/25 01/07/25 23:59 23:59 23:59 23:59 Intake Total 50 970 Output Total 3400 4000 Balance -3350 -3030 Meds/Results Medications: Active Medications Generic Name Dose Route Start Last Admin Trade Name Freq PRN Reason Stop Dose Admin Acetaminophen 650 mg 01/05/25 14:36 Acetaminophen 325 Mg Tablet PO Q4H PRN Mild Pain (1-3) or Fever Hydrocodone Bitart/Acetaminophen 1 tab 01/05/25 14:36 01/06/25 23:00 Hydrocodone/Acetaminophen (*Crx) 5-325 Mg Tablet PO 1 tab Q4H PRN Administration Pain Rated 4-6 Albuterol/Ipratropium 3 ml 01/05/25 20:00 01/07/25 08:14 Ipratropium 0.5 Mg/Albuterol Sulfate 2.5 Mg Ampul.Neb 3 Ml INHALATION 3 ml Q6HRT DAVID Administration Aspirin 81 mg 01/06/25 09:00 01/06/25 14:42 Aspirin 81 Mg Enteric Tablet PO 81 mg DAILY DAVID Administration Atorvastatin Calcium 20 mg 01/06/25 09:00 01/06/25 14:42 Atorvastatin 20 Mg Tablet PO 20 mg DAILY DAVID Administration Carvedilol 25 mg 01/05/25 21:00 01/06/25 22:50 Carvedilol 25 Mg Tablet PO 25 mg Q12HR DAVID Administration Dextrose 12.5 gm 01/05/25 17:06 Dextrose 50% 25 Gm/50 Ml Syringe IV PUSH PRN PRN Hypoglycemia Protocol Enoxaparin Sodium 30 mg 01/06/25 09:00 01/06/25 14:41 Enoxaparin 30 Mg/0.3 Ml Syringe SUB-Q 30 mg DAILY DAVID Administration Epoetin David-epbx 10,000 units 01/06/25 09:00 01/06/25 11:30 Epoetin David-Epbx 10,000 Units/Ml Vial IV PUSH 10,000 units TUTHSA@09 DAVID Administration Finasteride 5 mg 01/06/25 09:00 01/06/25 14:42 Finasteride 5 Mg Tablet PO 5 mg QAM DAVID Administration Furosemide 80 mg 01/06/25 09:00 01/06/25 16:59 Furosemide 80 Mg Tablet PO 80 mg BID DAVID Administration Glucagon 1 mg 01/05/25 17:06 Glucagon For Inj 1 Mg Vial IM PRN PRN Hypoglycemia Protocol Glucose 15 gm 01/05/25 17:06 Glucose Oral Gel 15 Gm Of Glucse In 37.5 Gm Tube PO PRN PRN Hypoglycemia Protocol Ceftriaxone Sodium 1 gm in 50 mls @ 100 mls/hr 01/06/25 14:00 01/06/25 15:00 Rocephin 1 Gm/Ns 50 Ml IVPB 100 mls/hr Q24H DAVID Administration Azithromycin 500 mg in 250 mls @ 250 mls/hr 01/06/25 15:00 01/06/25 15:00 Zithromax IVPB 250 mls/hr Q24H DAVID Administration Dextrose 1,000 mls @ 100 mls/hr 01/05/25 17:06 Dextrose 5% 1,000 Ml IVPB PRN PRN Hypoglycemia Protocol Insulin Aspart 4 - 8 units 01/06/25 08:00 01/07/25 08:11 Insulin Aspart (*Bkc) 100 Units/Ml SUB-Q Not Given TIDWM DAVID Protocol Insulin Aspart 2 - 4 units 01/05/25 21:00 01/07/25 06:20 Insulin Aspart (*Bkc) 100 Units/Ml SUB-Q Not Given HS DAVID Protocol Insulin Glargine 6 units 01/06/25 09:00 01/06/25 14:40 Insulin Glargine (*Bkc) 100 Units/Ml SUB-Q 6 units DAILY DAVID Administration Loratadine 10 mg 01/06/25 09:00 01/06/25 14:42 Loratadine 10 Mg Tablet PO 10 mg QAM DAVID Administration Ondansetron HCl 4 mg 01/05/25 16:47 Ondansetron Inj 4 Mg/2 Ml Vial IV PUSH Q6H PRN Nausea And Vomiting Sevelamer Carbonate 3.2 gm 01/06/25 08:00 01/06/25 16:59 Sevelamer Carbonate 0.8 Gm Oral Powder Packet PO 3.2 gm TIDWM DAVID Administration Tamsulosin HCl 0.4 mg 01/05/25 21:00 01/06/25 22:50 Tamsulosin Hcl 0.4 Mg Capsule PO 0.4 mg QHS DAVID Administration Radiology Results: ITS Impressions Chest X-Ray 01/05/25 10:35 IMPRESSION: Bilateral basal pneumonia. Bilateral interstitial thickening suggestive of pneumonitis versus pulmonary edema. Head/Neck CTA 01/05/25 10:49 IMPRESSION: 1. CTA neck. Percent stenosis per NASCET criteria is 25% on the right and 10% on the left. 2. CTA of the head with no occlusion or significant stenosis. 3. 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 Labs Labs: Laboratory Results - last 24 hr 01/06/25 01/06/25 01/06/25 04:26 14:21 15:51 WBC RBC Hgb Hct MCV MCH MCHC RDW Plt Count MPV Immature Gran % (Auto) Neut % (Auto) Lymph % (Auto) [place] % (Auto) Eos % (Auto) Baso % (Auto) Lymph # (Auto) [place] # (Auto) Eos # (Auto) Baso # (Auto) Abs Immat Gran (auto) Absolute Neuts (auto) Absolute Nucleated RBC Nucleated RBC % Sodium Potassium Chloride Carbon Dioxide Anion Gap BUN Creatinine Estim Creat Clear Calc Estimated GFR Glucose POC Capillary Glucose 135 H 329 H Calcium Phosphorus Iron 58 TIBC 287 % Saturation 20 Ferritin 296.00 H Total Bilirubin AST ALT Alkaline Phosphatase Total Protein Albumin Hep Bs Antigen Negative 01/06/25 01/07/25 01/07/25 20:25 04:20 07:20 WBC 5.5 RBC 2.94 L Hgb 8.0 L Hct 26.4 L MCV 89.8 MCH 27.2 MCHC 30.3 L RDW 20.1 H Plt Count 203 MPV 10.5 H Immature Gran % (Auto) 0.7 H Neut % (Auto) 66.5 Lymph % (Auto) 14.4 L [place] % (Auto) 16.0 H Eos % (Auto) 1.3 Baso % (Auto) 1.1 Lymph # (Auto) 0.79 L [place] # (Auto) 0.9 H Eos # (Auto) 0.1 Baso # (Auto) 0.1 Abs Immat Gran (auto) 0.04 H Absolute Neuts (auto) 3.7 Absolute Nucleated RBC 0.000 Nucleated RBC % 0.0 Sodium 136 L Potassium 4.1 Chloride 95 L Carbon Dioxide 32 H Anion Gap 9 BUN 34 H D Creatinine 4.81 H Estim Creat Clear Calc 13 Estimated GFR 12 L Glucose 144 H POC Capillary Glucose 302 H 150 H Calcium 9.2 Phosphorus 5.0 H Iron TIBC % Saturation Ferritin Total Bilirubin 0.3 AST 15 L ALT 19 Alkaline Phosphatase 70 Total Protein 6.0 L Albumin 3.2 L Hep Bs Antigen
[2025-01-07] MEDS: ENOXAPARIN 30 MG/0.3 ML SYRINGE SUB-Q (09:34)
[2025-01-07] MEDS: ASPIRIN 81 MG ENTERIC TABLET PO (09:34)
[2025-01-07] MEDS: SEVELAMER CARBONATE 0.8 GM ORAL POWDER PACKET 3.2 GM PO ×2 (09:34→12:46)
[2025-01-07] MEDS: carvediloL 25 MG TABLET PO ×2 (09:36→20:49)
[2025-01-07] MEDS: ATORVASTATIN 20 MG TABLET PO (09:37)
[2025-01-07] MEDS: INSULIN GLARGINE (*BKC) 100 UNITS/ML 6 UNITS SUB-Q (09:38)
[2025-01-07] MEDS: FINASTERIDE 5 MG TABLET PO (09:38)
[2025-01-07] MEDS: LORATADINE 10 MG TABLET PO (09:38)
[2025-01-07] MEDS: FUROSEMIDE 80 MG TABLET PO (09:38)
--- NOTE | 2025-01-07 10:03 | P.PNNP_ITS ---
Progress Note: A&P Assessment and Plan (1) End-stage renal disease on hemodialysis: Code(s): N18.6 - End stage renal disease; Z99.2 - Dependence on renal dialysis Status: Acute Assessment and Plan: The patient has end-stage renal disease. This is due to diabetes and hypertension. Vascular disease is probably playing a role as well. he is grossly volume overloaded. He probably has 20-30 lb on. He has had dialysis on Sunday and is getting more today. Fluid status is starting to look better. Today is a regular dialysis. (2) Hypertension: Code(s): I10 - Essential (primary) hypertension Status: Acute Assessment and Plan: the patient's blood pressure was high on admission. Blood pressure is better with fluid removal plus his home med (3) Diabetes: Code(s): E11.9 - Type 2 diabetes mellitus without complications Status: Acute Assessment and Plan: blood sugars running between 134 and 304. Management per hospitalists (4) Anemia: Code(s): D64.9 - Anemia, unspecified Status: Chronic Assessment and Plan: hemoglobin is 8.6 will give Epogen today again. Iron is low will give a few doses (5) Acute exacerbation of CHF (congestive heart failure): Qualifiers: Heart failure type: unspecified Qualified Code(s): I50.9 - Heart failure, unspecified Code(s): I50.9 - Heart failure, unspecified Status: Acute Assessment and Plan: The patient has volume overload. he had an echocardiogram in October showing normal LV function but some diastolic dysfunction. He has right-sided problems because of his sleep apnea most likely. He has moderate tricuspid regurgitation is well , including pulmonary hypertension with a pressure of 49. (6) Peripheral vascular disease: Onset Date: ~03/2023 Code(s): I73.9 - Peripheral vascular disease, unspecified Status: Acute Assessment and Plan: He had stents placed in his lower extremities. This has been doing okay apparently. (7) CARITO (obstructive sleep apnea): Code(s): G47.33 - Obstructive sleep apnea (adult) (pediatric) Status: Acute Assessment and Plan: he does not use a CPAP machine at home (8) Dyslipidemia: Code(s): E78.5 - Hyperlipidemia, unspecified Status: Acute Assessment and Plan: he is on atorvastatin (9) Altered mental status: Code(s): R41.82 - Altered mental status, unspecified Status: Acute Assessment and Plan: the patient's CO2 is mildly high but at its baseline. Sodium is slightly low but not enough to cause this. Calcium level is not high. Ammonia level was okay. During other hospital stays his mental status has waxed and waned. CT brain shows no brain lesion but does have some vascular disease as mentioned in the report. He gets cyclobenzaprine at the nursing facility. This has been held. Will get a regular dialysis today. Subjective Date/time seen: 01/07/25 10:03 Interval history: Patient is alert. He feels better. Less swollen but still has quite a bit on No chest pain. Breathing is better Review of Systems Cardiovascular: Cardiovascular: Reports no additional cardiovascular complaints Respiratory: Respiratory: Reports no additional respiratory complaints Gastrointestinal: Gastrointestinal: Reports no additional gastrointestinal complaints Genitourinary: Genitourinary: Reports no additional male genitourinary complaints Exam Narrative: WDWN in NAD skin no rash head ncat lungs symmetric and rare crackles cor reg no rub abd BS+ nontender and soft ext 1 to2+ bilateral edema. Right Heel ulcer has a bandage Objective Data Vital Signs Vital Signs: Vital Signs - 24 hr 01/06/25 10:15 01/06/25 10:30 01/06/25 10:45 Temperature Pulse Rate 87 79 85 Respiratory Rate Blood Pressure 143/64 H 161/73 H 144/79 H Pulse Oximetry Oxygen Delivery Fraction of Inspired Oxygen 01/06/25 11:00 01/06/25 11:15 01/06/25 11:30 Temperature Pulse Rate 81 89 89 Respiratory Rate Blood Pressure 162/83 H 159/87 H 159/87 H Pulse Oximetry Oxygen Delivery Fraction of Inspired Oxygen 01/06/25 11:45 01/06/25 12:00 01/06/25 12:00 Temperature Pulse Rate 70 88 84 Respiratory Rate Blood Pressure 155/75 H 153/61 H Pulse Oximetry Oxygen Delivery Fraction of Inspired Oxygen 01/06/25 12:00 01/06/25 12:05 01/06/25 12:21 Temperature 97.7 F 98.4 F Pulse Rate 94 85 87 Respiratory Rate 24 H 20 Blood Pressure 154/62 H 176/81 H 151/67 H Pulse Oximetry 94 95 Oxygen Delivery Fraction of Inspired Oxygen 01/06/25 13:50 01/06/25 13:50 01/06/25 14:00 Temperature Pulse Rate 85 85 96 Respiratory Rate 20 20 20 Blood Pressure Pulse Oximetry 96 Oxygen Delivery Room Air Fraction of Inspired Oxygen 01/06/25 14:00 01/06/25 16:00 01/06/25 16:00 Temperature 98.2 F Pulse Rate 96 98 91 Respiratory Rate 16 Blood Pressure 131/67 Pulse Oximetry 92 Oxygen Delivery Fraction of Inspired Oxygen 01/06/25 18:00 01/06/25 19:51 01/06/25 19:58 Temperature 98.6 F Pulse Rate 95 98 93 Respiratory Rate 18 20 Blood Pressure 132/56 L Pulse Oximetry 92 Oxygen Delivery Fraction of Inspired Oxygen 01/06/25 19:58 01/06/25 20:00 01/06/25 20:00 Temperature Pulse Rate 90 102 H Respiratory Rate 18 Blood Pressure Pulse Oximetry 90 96 Oxygen Delivery Room Air Room Air Fraction of Inspired Oxygen 21 01/06/25 20:08 01/06/25 22:00 01/06/25 23:43 Temperature 98.2 F Pulse Rate 96 80 90 Respiratory Rate 20 18 Blood Pressure 124/55 L Pulse Oximetry 96 Oxygen Delivery Fraction of Inspired Oxygen 01/07/25 00:00 01/07/25 00:00 01/07/25 02:00 Temperature Pulse Rate 90 76 80 Respiratory Rate 18 Blood Pressure Pulse Oximetry 96 Oxygen Delivery Room Air Fraction of Inspired Oxygen 21 01/07/25 02:02 01/07/25 02:12 01/07/25 03:54 Temperature 98.0 F Pulse Rate 88 83 82 Respiratory Rate 20 20 18 Blood Pressure 135/66 Pulse Oximetry 91 Oxygen Delivery Fraction of Inspired Oxygen 01/07/25 04:00 01/07/25 04:00 01/07/25 06:00 Temperature Pulse Rate 82 87 90 Respiratory Rate 18 Blood Pressure Pulse Oximetry 91 Oxygen Delivery Room Air Fraction of Inspired Oxygen 21 01/07/25 08:00 01/07/25 08:16 01/07/25 08:16 Temperature 98.3 F Pulse Rate 85 89 Respiratory Rate 20 20 Blood Pressure 137/58 L Pulse Oximetry 97 94 Oxygen Delivery Room Air Fraction of Inspired Oxygen 01/07/25 08:25 01/07/25 09:36 Temperature Pulse Rate 82 97 Respiratory Rate 22 H Blood Pressure Pulse Oximetry Oxygen Delivery Fraction of Inspired Oxygen Intake/Output Intake/Output: Intake & Output 03/16/25 03/17/25 03/18/25 03/19/25 23:59 23:59 23:59 23:59 Intake Total 50 970 Output Total 3400 4000 Balance -3350 -3030 Meds/Results Medications: Active Medications Generic Name Dose Route Start Last Admin Trade Name Freq PRN Reason Stop Dose Admin Acetaminophen 650 mg 01/05/25 14:36 Acetaminophen 325 Mg Tablet PO Q4H PRN Mild Pain (1-3) or Fever Hydrocodone Bitart/Acetaminophen 1 tab 01/05/25 14:36 01/06/25 23:00 Hydrocodone/Acetaminophen (*Crx) 5-325 Mg Tablet PO 1 tab Q4H PRN Administration Pain Rated 4-6 Albuterol/Ipratropium 3 ml 01/05/25 20:00 01/07/25 08:14 Ipratropium 0.5 Mg/Albuterol Sulfate 2.5 Mg Ampul.Neb 3 Ml INHALATION 3 ml Q6HRT DAVID Administration Aspirin 81 mg 01/06/25 09:00 01/07/25 09:34 Aspirin 81 Mg Enteric Tablet PO 81 mg DAILY DAVID Administration Atorvastatin Calcium 20 mg 01/06/25 09:00 01/07/25 09:37 Atorvastatin 20 Mg Tablet PO 20 mg DAILY DAVID Administration Carvedilol 25 mg 01/05/25 21:00 01/07/25 09:36 Carvedilol 25 Mg Tablet PO 25 mg Q12HR DAVID Administration Dextrose 12.5 gm 01/05/25 17:06 Dextrose 50% 25 Gm/50 Ml Syringe IV PUSH PRN PRN Hypoglycemia Protocol Enoxaparin Sodium 30 mg 01/06/25 09:00 01/07/25 09:34 Enoxaparin 30 Mg/0.3 Ml Syringe SUB-Q 30 mg DAILY DAVID Administration Epoetin David-epbx 10,000 units 01/06/25 09:00 01/06/25 11:30 Epoetin David-Epbx 10,000 Units/Ml Vial IV PUSH 10,000 units TUTHSA@09 DAVID Administration Finasteride 5 mg 01/06/25 09:00 01/07/25 09:38 Finasteride 5 Mg Tablet PO 5 mg QAM DAVID Administration Furosemide 80 mg 01/06/25 09:00 01/07/25 09:38 Furosemide 80 Mg Tablet PO 80 mg BID DAVID Administration Glucagon 1 mg 01/05/25 17:06 Glucagon For Inj 1 Mg Vial IM PRN PRN Hypoglycemia Protocol Glucose 15 gm 01/05/25 17:06 Glucose Oral Gel 15 Gm Of Glucse In 37.5 Gm Tube PO PRN PRN Hypoglycemia Protocol Ceftriaxone Sodium 1 gm in 50 mls @ 100 mls/hr 01/06/25 14:00 01/06/25 15:00 Rocephin 1 Gm/Ns 50 Ml IVPB 100 mls/hr Q24H DAVID Administration Azithromycin 500 mg in 250 mls @ 250 mls/hr 01/06/25 15:00 01/06/25 15:00 Zithromax IVPB 250 mls/hr Q24H DAVID Administration Dextrose 1,000 mls @ 100 mls/hr 01/05/25 17:06 Dextrose 5% 1,000 Ml IVPB PRN PRN Hypoglycemia Protocol Insulin Aspart 4 - 8 units 01/06/25 08:00 01/07/25 08:11 Insulin Aspart (*Bkc) 100 Units/Ml SUB-Q Not Given TIDWM DAVID Protocol Insulin Aspart 2 - 4 units 01/05/25 21:00 01/07/25 06:20 Insulin Aspart (*Bkc) 100 Units/Ml SUB-Q Not Given HS DAVID Protocol Insulin Glargine 6 units 01/06/25 09:00 01/07/25 09:38 Insulin Glargine (*Bkc) 100 Units/Ml SUB-Q 6 units DAILY DAVID Administration Loratadine 10 mg 01/06/25 09:00 01/07/25 09:38 Loratadine 10 Mg Tablet PO 10 mg QAM DAVID Administration Ondansetron HCl 4 mg 01/05/25 16:47 Ondansetron Inj 4 Mg/2 Ml Vial IV PUSH Q6H PRN Nausea And Vomiting Sevelamer Carbonate 3.2 gm 01/06/25 08:00 01/07/25 09:34 Sevelamer Carbonate 0.8 Gm Oral Powder Packet PO 3.2 gm TIDWM DAVID Administration Tamsulosin HCl 0.4 mg 01/05/25 21:00 01/06/25 22:50 Tamsulosin Hcl 0.4 Mg Capsule PO 0.4 mg QHS DAVID Administration Radiology Results: ITS Impressions Chest X-Ray 01/05/25 10:35 IMPRESSION: Bilateral basal pneumonia. Bilateral interstitial thickening suggestive of pneumonitis versus pulmonary edema. Head/Neck CTA 01/05/25 10:49 IMPRESSION: 1. CTA neck. Percent stenosis per NASCET criteria is 25% on the right and 10% on the left. 2. CTA of the head with no occlusion or significant stenosis. 3. 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 Labs Labs: Laboratory Results - last 24 hr 01/06/25 01/06/25 01/06/25 04:26 14:21 15:51 WBC RBC Hgb Hct MCV MCH MCHC RDW Plt Count MPV Immature Gran % (Auto) Neut % (Auto) Lymph % (Auto) [place] % (Auto) Eos % (Auto) Baso % (Auto) Lymph # (Auto) [place] # (Auto) Eos # (Auto) Baso # (Auto) Abs Immat Gran (auto) Absolute Neuts (auto) Absolute Nucleated RBC Nucleated RBC % Sodium Potassium Chloride Carbon Dioxide Anion Gap BUN Creatinine Estim Creat Clear Calc Estimated GFR Glucose POC Capillary Glucose 135 H 329 H Calcium Phosphorus Ferritin 296.00 H Total Bilirubin AST ALT Alkaline Phosphatase Total Protein Albumin Hep Bs Antigen Negative 01/06/25 01/07/25 01/07/25 20:25 04:20 07:20 WBC 5.5 RBC 2.94 L Hgb 8.0 L Hct 26.4 L MCV 89.8 MCH 27.2 MCHC 30.3 L RDW 20.1 H Plt Count 203 MPV 10.5 H Immature Gran % (Auto) 0.7 H Neut % (Auto) 66.5 Lymph % (Auto) 14.4 L [place] % (Auto) 16.0 H Eos % (Auto) 1.3 Baso % (Auto) 1.1 Lymph # (Auto) 0.79 L [place] # (Auto) 0.9 H Eos # (Auto) 0.1 Baso # (Auto) 0.1 Abs Immat Gran (auto) 0.04 H Absolute Neuts (auto) 3.7 Absolute Nucleated RBC 0.000 Nucleated RBC % 0.0 Sodium 136 L Potassium 4.1 Chloride 95 L Carbon Dioxide 32 H Anion Gap 9 BUN 34 H D Creatinine 4.81 H Estim Creat Clear Calc 13 Estimated GFR 12 L Glucose 144 H POC Capillary Glucose 302 H 150 H Calcium 9.2 Phosphorus 5.0 H Ferritin Total Bilirubin 0.3 AST 15 L ALT 19 Alkaline Phosphatase 70 Total Protein 6.0 L Albumin 3.2 L Hep Bs Antigen
--- NOTE | 2025-01-07 11:41 | WPDNEUROLOGY ---
Neurology EEG Report General Information Date of Study: 01/07/25 TEST eeg DIAGNOSIS Change in the mental status. CONDITION OF RECORDING Awake, drowsy and asleep. EEG NUMBER 25-30 CLINICAL HISTORY Patient states he is here in hospital because he fell down. Denies any loss of consciousness or confusion. EEG DESCRIPTION Background rhythm consists of low-voltage 15 to 18 hertz per 2nd beta activity with waxing and waning alpha activity posteriorly during drowsiness. Bilateral symmetrical sleep activity is noted during sleep with symmetrical sleep spindles and K complexes. Intermittent EKG artifact is noted on the right side. During wakefulness low voltage 8 to 10 hertz per 2nd alpha activities noted intermittently. Hyperventilation not done. Photic stimulation not done. Non paroxysmal. Nonfocal. Nonlateralizing. IMPRESSION No significant abnormalities noted during wakefulness, drowsiness, and sleep. Clinical correlation recommended.
[2025-01-07 12:18] LABS: Glucose Point of Care 175 mg/dl (65-105)
--- NOTE | 2025-01-07 13:30 | PC.NURSE ---
Pt to dialysis
[2025-01-07] MEDS: EPOETIN ALFA-EPBX 10,000 UNITS/ML VIAL 10000 UNITS IV PUSH (15:22)
--- NOTE | 2025-01-07 17:55 | PC.NURSE ---
This patient, Sam Morrissey, was received from [facility] on 01/07/25 at 1832. Patient/family oriented to unit policies and routines.
[2025-01-07 17:56] LABS: Glucose Point of Care 164 mg/dl (65-105)
--- NOTE | 2025-01-07 18:01 | PC.NURSE ---
Pt taken from dialysis to new room 257. Report given to JIMMY Dalton. All belongings taken with patient.
[2025-01-07] MEDS: AZITHROMYCIN 500 MG/NS 250 ML 500 MG/250 ML BAG 250 MG IVPB (19:38)
[2025-01-07] MEDS: TAMSULOSIN HCL 0.4 MG CAPSULE PO (20:49)
[2025-01-07] MEDS: INSULIN ASPART (*BKC) 100 UNITS/ML SUB-Q (20:49)
[2025-01-07] MEDS: HYDROcodone/acetaminophen (*CRX) 5-325 MG TABLET 1 TAB PO (20:59)
[2025-01-07 23:26] LABS: Glucose Point of Care 226 mg/dl (65-105)
[2025-01-08] VITALS (28 sets, daily range): BP systolic 117–180; BP diastolic 62–90; PULSE 65–94; RESP 12–20; TEMP 36.3–36.6; O2SAT 92–100
[2025-01-08] MEDS: IPRATROPIUM 0.5 MG/ALBUTEROL SULFATE 2.5 MG AMPUL.NEB 3 ML INHALATION ×3 (02:18→21:58)
[2025-01-08 05:46] LABS: Basophils Absolute Auto 0.1 K/mm3 (0.0-0.1); Basophils Percent Auto 1.3 % (0.2-1.2); Eosinophils Absolute Auto 0.1 K/mm3 (0-0.3); Eosinophils Percent Auto 2.7 % (0-4.4); Hematocrit 28.5 % (42.0-52.0); Hemoglobin 8.2 g/dL (14.0-18.0); Immature Granulocyte Absolute 0.05 K/mm3 (0.00-0.031); Immature Platelet Fraction Pct 3.9 % (0.9-11.2); Immature Reticulocyte Fraction 24.5 % (3.0-15.9); Lymphocytes Percent Auto 14.6 % (18.3-44.2); Mean Corpuscular HGB Conc 28.8 g/dl (32-36); Mean Corpuscular Hemoglobin 26.8 pg (26-34); Mean Corpuscular Volume 93.1 fl (80-100); Mean Platelet Volume 10.8 fl (7.4-10.4); Monocytes Absolute Auto 0.7 K/mm3 (0.1-0.6); Monocytes Percent Auto 15.2 % (2.6-8.5); Neutrophils Absolute Auto 3.1 K/mm3 (1.3-6.7); Neutrophils Percent Auto 65.2 % (45.5-73.1); Platelet Count Result 178 k/mm3 (150-375); Red Blood Count 3.06 M/mm3 (4.6-6.20); Reticulocyte Hemoglobin Conten 28.2 pg (28.2-36.6); Reticulocytes Absolute 0.08 10^6/uL (0.02-0.10); White Blood Count 4.8 K/mm3 (4.5-10.0)
[2025-01-08 05:50] LABS: Alanine Aminotransferase 17 U/L (6-50); Albumin Level 3.4 g/dL (3.5-5.1); Alkaline Phosphatase 75 U/L (38-126); Anion Gap 9 mmol/L (4-12); Aspartate Amino Transferase 13 U/L (17-59); Bilirubin,Total 0.2 mg/dL (0.2-1.3); Blood Urea Nitrogen 24 mg/dL (9-20); Calcium 9.5 mg/dL (8.4-10.2); Carbon Dioxide 32 mmol/L (22-30); Chloride 96 mmol/L (98-107); Estimated CRCL calculation 13 ml/min; Estimated Glomerular Filt Rate 13; Glucose 205 mg/dL (65-110); Phosphorus 4.5 mg/dL (2.5-4.5); Sodium 137 mmol/L (137-145)
[2025-01-08 06:34] LABS: Anisocytosis 1+; Hypochromasia 1+; Ovalocytes 1+; Platelet Estimate Adequate (Adequate); Schistocytes None Seen; Tear Drop Cells 1+
[2025-01-08 07:45] LABS: Glucose Point of Care 177 mg/dl (65-105)
--- NOTE | 2025-01-08 08:35 | PM.IMPN ---
Progress Note: A&P Assessment and Plan (1) Acute exacerbation of CHF (congestive heart failure): Qualifiers: Heart failure type: unspecified Qualified Code(s): I50.9 - Heart failure, unspecified Code(s): I50.9 - Heart failure, unspecified Status: Acute (2) Coronary artery disease: Qualifiers: Associated angina: without angina Coronary Disease-Associated Artery/Lesion type: bypass graft [place] vs. transplanted heart: [place] heart Qualified Code(s): I25.810 - Atherosclerosis of coronary artery bypass graft(s) without angina pectoris Code(s): I25.10 - Atherosclerotic heart disease of [place] coronary artery without angina pectoris Status: Acute (3) Elevated troponin: Code(s): R79.89 - Other specified abnormal findings of blood chemistry Status: Acute Plan Acute respiratory failure with hypoxemic and hypercapnia Resulting from pneumonia and pulmonary edema Start DuoNeb scheduled albuterol nebulizer p.r.n. Patient is on BiPAP Follow-up ABG: Hypoxemic and hypercapnic respiratory failure Off BiPAP Patient is on 2 L oxygen Community-acquired pneumonia J18.9 - Pneumonia, unspecified organism Status: Resolved Assessment and Plan: chest x-ray showing bilateral basal pneumonia, bilateral interstitial thickening suggestive of pneumonitis versus pulmonary edema Continue Rocephin and azithromycin End-stage renal disease on hemodialysis: Code(s): N18.6 - End stage renal disease; Z99.2 - Dependence on renal dialysis Status: Acute Assessment and Plan: initial creatinine 5.80, EGFR 10, patient is overloaded with fluid and pulmonary edema Consult [employer] member for dialysis Elevated troponin: Code(s): R79.89 - Other specified abnormal findings of blood chemistry Status: Acute Assessment and Plan: Patient denies chest pain troponin 0.088 likely demand ischemia from fluid overload Altered mental status: Code(s): R41.82 - Altered mental status, unspecified Status: Acute Assessment and Plan: Patient difficult to arouse after dialysis before arrival to the ED Patient expressed in the ER that around 1 a.m. he couldn't speak which lasted for about 2 hours. He has had multiple falls in the past, some that were evaluated in our ER. Possible due to respiratory failure, uremia Concerns for seizure activity with post ictal state per neurologist evaluation Pending EEG Neuro check: No focal deficits or edema sensation Patient is alert oriented x3, able to answer question and follow commands, no focal weakness. Mental status back to normal on 01/07 IDDM (insulin dependent diabetes mellitus): Status: Chronic Assessment and Plan: Uncontrolled type 2 diabetes. Blood sugar 304 Continue Lantus 6 units daily, insulin sliding scale a.c. and q.h.s. Well controlled now 01/07 (7) Hypertension: Code(s): I10 - Essential (primary) hypertension Status: Acute Assessment and Plan: Uncontrolled blood pressure ranging 128/61 to 144/77 continue Coreg and amlodipine (8) Dyslipidemia: Code(s): E78.5 - Hyperlipidemia, unspecified Status: Acute Assessment and Plan: continue aspirin and atorvastatin (9) CARITO (obstructive sleep apnea): Code(s): G47.33 - Obstructive sleep apnea (adult) (pediatric) Status: Acute Assessment and Plan: BiPAP at night due to hypercapnia and hypoxia Subjective Date/time seen: 01/08/25 08:35 Interval history: Patient is afebrile, blood pressure stable, patient feels dyspnea is improving patient condition continued to improve Current patient is on room air Labs reviewed, hemoglobin 8.2 on the baseline, BUN creatinine trending down EEG does not suggest seizure Exam Narrative: GENERAL: Pleasant, in no acute distress. Well-nourished. - EYES: EOMI. Anicteric. - HENT: Moist mucous membranes. - LUNGS: Coarse breath sound bilaterally - CARDIOVASCULAR: Regular rate and rhythm. No murmur. No JVD. - ABDOMEN: Soft, non-tender and non-distended. No palpable masses. - EXTREMITIES: No edema. Peripheral pulses 2+. Non-tender. - NEUROLOGIC: No focal neurological deficits. CN II-XII grossly intact. - PSYCHIATRIC: Awake, Alert and oriented x 3. Appropriate mood and affect. - SKIN: No rashes or lesions. Warm. - LYMPH: No cervical lymphadenopathy. Objective Data Vital Signs Vital Signs: Vital Signs - 24 hr 01/07/25 09:36 01/07/25 12:00 01/07/25 13:13 Temperature 98.5 F 98.1 F Pulse Rate 97 90 86 Respiratory Rate 24 H 16 Blood Pressure 151/75 H 148/72 H Pulse Oximetry 94 99 Oxygen Delivery Fraction of Inspired Oxygen 01/07/25 13:27 01/07/25 13:45 01/07/25 14:00 Temperature Pulse Rate 89 85 84 Respiratory Rate Blood Pressure 150/69 H 141/69 H 134/67 Pulse Oximetry Oxygen Delivery Fraction of Inspired Oxygen 01/07/25 14:15 01/07/25 14:30 01/07/25 14:45 Temperature Pulse Rate 78 88 78 Respiratory Rate Blood Pressure 132/60 142/66 H 149/62 H Pulse Oximetry Oxygen Delivery Fraction of Inspired Oxygen 01/07/25 15:00 01/07/25 15:15 01/07/25 15:30 Temperature Pulse Rate 84 83 82 Respiratory Rate Blood Pressure 134/75 147/67 H 136/65 Pulse Oximetry Oxygen Delivery Fraction of Inspired Oxygen 01/07/25 15:42 01/07/25 15:45 01/07/25 16:00 Temperature Pulse Rate 95 81 81 Respiratory Rate Blood Pressure 141/67 H 138/68 Pulse Oximetry Oxygen Delivery Fraction of Inspired Oxygen 01/07/25 16:15 01/07/25 16:30 01/07/25 16:45 Temperature Pulse Rate 88 88 82 Respiratory Rate Blood Pressure 139/66 138/68 125/68 Pulse Oximetry Oxygen Delivery Fraction of Inspired Oxygen 01/07/25 16:57 01/07/25 17:00 01/07/25 20:00 Temperature 98.7 F Pulse Rate 90 90 Respiratory Rate 20 Blood Pressure 126/67 134/77 Pulse Oximetry 97 Oxygen Delivery Room Air Fraction of Inspired Oxygen 01/07/25 20:16 01/07/25 20:16 01/07/25 20:25 Temperature Pulse Rate 80 86 Respiratory Rate 20 20 Blood Pressure Pulse Oximetry 95 Oxygen Delivery Room Air Fraction of Inspired Oxygen 21 01/07/25 20:31 01/07/25 20:49 01/08/25 02:18 Temperature 97.6 F Pulse Rate 88 88 92 Respiratory Rate 18 18 Blood Pressure 129/65 Pulse Oximetry 98 Oxygen Delivery Fraction of Inspired Oxygen 01/08/25 02:26 01/08/25 04:58 Temperature 97.8 F Pulse Rate 94 78 Respiratory Rate 18 18 Blood Pressure 117/64 Pulse Oximetry 97 Oxygen Delivery Fraction of Inspired Oxygen Intake/Output Intake/Output: Intake & Output 01/05/25 01/06/25 01/07/25 01/08/25 23:59 23:59 23:59 23:59 Intake Total 50 970 800 150 Output Total 3400 4000 4000 Balance -3350 -3030 -3203 150 Meds/Results Medications: Active Medications Generic Name Dose Route Start Last Admin Trade Name Freq PRN Reason Stop Dose Admin Acetaminophen 650 mg 01/05/25 14:36 Acetaminophen 325 Mg Tablet PO Q4H PRN Mild Pain (1-3) or Fever Hydrocodone Bitart/Acetaminophen 1 tab 01/05/25 14:36 01/07/25 20:59 Hydrocodone/Acetaminophen (*Crx) 5-325 Mg Tablet PO 1 tab Q4H PRN Administration Pain Rated 4-6 Albuterol/Ipratropium 3 ml 01/05/25 20:00 01/08/25 02:18 Ipratropium 0.5 Mg/Albuterol Sulfate 2.5 Mg Ampul.Neb 3 Ml INHALATION 3 ml Q6HRT DAVID Administration Aspirin 81 mg 01/06/25 09:00 01/07/25 09:34 Aspirin 81 Mg Enteric Tablet PO 81 mg DAILY DAVID Administration Atorvastatin Calcium 20 mg 01/06/25 09:00 01/07/25 09:37 Atorvastatin 20 Mg Tablet PO 20 mg DAILY DAVID Administration Carvedilol 25 mg 01/05/25 21:00 01/07/25 20:49 Carvedilol 25 Mg Tablet PO 25 mg Q12HR DAVID Administration Dextrose 12.5 gm 01/05/25 17:06 Dextrose 50% 25 Gm/50 Ml Syringe IV PUSH PRN PRN Hypoglycemia Protocol Enoxaparin Sodium 30 mg 01/06/25 09:00 01/07/25 09:34 Enoxaparin 30 Mg/0.3 Ml Syringe SUB-Q 30 mg DAILY DAVID Administration Epoetin David-epbx 10,000 units 01/07/25 10:10 01/07/25 15:22 Epoetin David-Epbx 10,000 Units/Ml Vial IV PUSH 10,000 units MOWEFR DAVID Administration Finasteride 5 mg 01/06/25 09:00 01/07/25 09:38 Finasteride 5 Mg Tablet PO 5 mg QAM DAVID Administration Furosemide 80 mg 01/06/25 09:00 01/07/25 17:56 Furosemide 80 Mg Tablet PO Not Given BID DAVID Glucagon 1 mg 01/05/25 17:06 Glucagon For Inj 1 Mg Vial IM PRN PRN Hypoglycemia Protocol Glucose 15 gm 01/05/25 17:06 Glucose Oral Gel 15 Gm Of Glucse In 37.5 Gm Tube PO PRN PRN Hypoglycemia Protocol Dextrose 1,000 mls @ 100 mls/hr 01/05/25 17:06 Dextrose 5% 1,000 Ml IVPB PRN PRN Hypoglycemia Protocol Albumin Human 50 mls @ 999 mls/hr 01/07/25 10:04 Albutein IVPB 01/08/25 10:03 Q10M PRN HYPOTENSION Iron Sucrose 200 mg/ Sodium 110 mls @ 220 mls/hr 01/08/25 09:00 Chloride IVPB 01/12/25 09:29 QAM DAVID Ceftriaxone Sodium 1 gm in 50 mls @ 100 mls/hr 01/07/25 19:00 01/07/25 18:50 Rocephin 1 Gm/Ns 50 Ml IVPB 100 mls/hr Q24H DAVID Administration Azithromycin 500 mg in 250 mls @ 250 mls/hr 01/07/25 20:00 01/07/25 19:38 Zithromax IVPB 250 mls/hr Q24H DAVID Administration Sodium Chloride 1,000 mls @ 999 mls/hr 01/08/25 07:40 Normal Saline Iv IV CONT 01/08/25 08:40 .Q1H1M ONE Insulin Aspart 4 - 8 units 01/06/25 08:00 01/08/25 07:53 Insulin Aspart (*Bkc) 100 Units/Ml SUB-Q Not Given TIDWM DAVID Protocol Insulin Aspart 2 - 4 units 01/05/25 21:00 01/07/25 20:49 Insulin Aspart (*Bkc) 100 Units/Ml SUB-Q 2 units HS DAVID Administration Protocol Insulin Glargine 6 units 01/06/25 09:00 01/07/25 09:38 Insulin Glargine (*Bkc) 100 Units/Ml SUB-Q 6 units DAILY DAVID Administration Loratadine 10 mg 01/06/25 09:00 01/07/25 09:38 Loratadine 10 Mg Tablet PO 10 mg QAM DAVID Administration Ondansetron HCl 4 mg 01/05/25 16:47 Ondansetron Inj 4 Mg/2 Ml Vial IV PUSH Q6H PRN Nausea And Vomiting Sevelamer Carbonate 3.2 gm 01/06/25 08:00 01/07/25 17:57 Sevelamer Carbonate 0.8 Gm Oral Powder Packet PO Not Given TIDWM DAVID Tamsulosin HCl 0.4 mg 01/05/25 21:00 01/07/25 20:49 Tamsulosin Hcl 0.4 Mg Capsule PO 0.4 mg QHS DAVID Administration Radiology Results: ITS Impressions Chest X-Ray 01/05/25 10:35 IMPRESSION: Bilateral basal pneumonia. Bilateral interstitial thickening suggestive of pneumonitis versus pulmonary edema. Head/Neck CTA 01/05/25 10:49 IMPRESSION: 1. CTA neck. Percent stenosis per NASCET criteria is 25% on the right and 10% on the left. 2. CTA of the head with no occlusion or significant stenosis. 3. 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 Labs Labs: Laboratory Results - last 24 hr 01/07/25 01/07/25 01/07/25 11:53 17:53 20:42 WBC RBC Hgb Hct MCV MCH MCHC RDW Plt Count MPV Immature Gran % (Auto) Neut % (Auto) Lymph % (Auto) [place] % (Auto) Eos % (Auto) Baso % (Auto) Lymph # (Auto) [place] # (Auto) Eos # (Auto) Baso # (Auto) Abs Immat Gran (auto) Absolute Neuts (auto) Absolute Nucleated RBC Band Neutrophils % Nucleated RBC % Platelet Estimate % Immature Plt Fraction Hypochromasia Anisocytosis Tear Drop Cells Ovalocytes Schistocytes Absolute Retic Percent Retic Immature Retic Fraction Retic Hgb Content Sodium Potassium Chloride Carbon Dioxide Anion Gap BUN Creatinine Estim Creat Clear Calc Estimated GFR Glucose POC Capillary Glucose 175 H 164 H 226 H Calcium Phosphorus Total Bilirubin AST ALT Alkaline Phosphatase Total Protein Albumin 01/08/25 01/08/25 05:24 07:42 WBC 4.8 RBC 3.06 L Hgb 8.2 L Hct 28.5 L MCV 93.1 MCH 26.8 MCHC 28.8 L RDW 20.0 H Plt Count 178 MPV 10.8 H Immature Gran % (Auto) 1.0 H Neut % (Auto) 65.2 Lymph % (Auto) 14.6 L [place] % (Auto) 15.2 H Eos % (Auto) 2.7 Baso % (Auto) 1.3 H Lymph # (Auto) 0.70 L [place] # (Auto) 0.7 H Eos # (Auto) 0.1 Baso # (Auto) 0.1 Abs Immat Gran (auto) 0.05 H Absolute Neuts (auto) 3.1 Absolute Nucleated RBC 0.000 Band Neutrophils % Not Reportable Nucleated RBC % 0.0 Platelet Estimate Adequate % Immature Plt Fraction 3.9 Hypochromasia 1+ Anisocytosis 1+ Tear Drop Cells 1+ Ovalocytes 1+ Schistocytes None seen Absolute Retic 0.08 Percent Retic 2.60 Immature Retic Fraction 24.5 H Retic Hgb Content 28.2 Sodium 137 Potassium 4.0 Chloride 96 L Carbon Dioxide 32 H Anion Gap 9 BUN 24 H D Creatinine 4.36 H Estim Creat Clear Calc 13 Estimated GFR 13 L Glucose 205 H POC Capillary Glucose 177 H Calcium 9.5 Phosphorus 4.5 Total Bilirubin 0.2 AST 13 L ALT 17 Alkaline Phosphatase 75 Total Protein 6.0 L Albumin 3.4 L
--- NOTE | 2025-01-08 08:45 | PC.NURSE ---
Patient off floor to dialysis via bed.
--- NOTE | 2025-01-08 12:30 | PC.NURSE ---
Patient returned form dialysis via bed.
[2025-01-08 12:41] LABS: Glucose Point of Care 232 mg/dl (65-105)
[2025-01-08] MEDS: HYDROcodone/acetaminophen (*CRX) 5-325 MG TABLET 1 TAB PO ×2 (13:02→20:28)
[2025-01-08] MEDS: IRON SUCROSE COMPLEX 200 MG in SODIUM CHLORIDE 0.9% IV 100 ML 220 MG IVPB (13:03)
[2025-01-08] MEDS: INSULIN ASPART (*BKC) 100 UNITS/ML SUB-Q ×2 (13:03→21:00)
[2025-01-08] MEDS: SEVELAMER CARBONATE 0.8 GM ORAL POWDER PACKET 3.2 GM PO ×2 (13:03→17:15)
[2025-01-08] MEDS: INSULIN GLARGINE (*BKC) 100 UNITS/ML 6 UNITS SUB-Q (13:03)
--- NOTE | 2025-01-08 13:47 | PM.PNNEP ---
Progress Note: A&P Assessment and Plan (1) End-stage renal disease on hemodialysis: Code(s): N18.6 - End stage renal disease; Z99.2 - Dependence on renal dialysis Status: Acute Assessment and Plan: The patient has end-stage renal disease. This is due to diabetes and hypertension. Vascular disease is probably playing a role as well. Volume overload is improving. He had another dry ultrafiltration this morning He will get another dialysis on Sunday. He can get that at his outpatient clinic. Okay for discharge any time (2) Hypertension: Code(s): I10 - Essential (primary) hypertension Status: Acute Assessment and Plan: the patient's blood pressure was high on admission. Blood pressure is better with fluid removal plus his home meds (3) Diabetes: Code(s): E11.9 - Type 2 diabetes mellitus without complications Status: Acute Assessment and Plan: Management per hospitalists (4) Anemia: Code(s): D64.9 - Anemia, unspecified Status: Chronic Assessment and Plan: hemoglobin is 8.2 will give Epogen today again. Iron is low will give a few doses (5) Acute exacerbation of CHF (congestive heart failure): Qualifiers: Heart failure type: unspecified Qualified Code(s): I50.9 - Heart failure, unspecified Code(s): I50.9 - Heart failure, unspecified Status: Acute Assessment and Plan: The patient has volume overload. he had an echocardiogram in October showing normal LV function but some diastolic dysfunction. He has right-sided problems because of his sleep apnea most likely. He has moderate tricuspid regurgitation is well , including pulmonary hypertension with a pressure of 49. Almost all the fluid is off Long talk with patient about fluid restriction. 5-6 cups per day should be the maximum intake. (6) Peripheral vascular disease: Onset Date: ~03/2023 Code(s): I73.9 - Peripheral vascular disease, unspecified Status: Acute Assessment and Plan: He had stents placed in his lower extremities. This has been doing okay apparently. (7) CARITO (obstructive sleep apnea): Code(s): G47.33 - Obstructive sleep apnea (adult) (pediatric) Status: Acute Assessment and Plan: he does not use a CPAP machine at home (8) Dyslipidemia: Code(s): E78.5 - Hyperlipidemia, unspecified Status: Acute Assessment and Plan: he is on atorvastatin (9) Altered mental status: Code(s): R41.82 - Altered mental status, unspecified Status: Acute Assessment and Plan: Resolved Subjective Date/time seen: 01/08/25 13:47 Interval history: Alert. No shortness of breath Swelling is better He does have a productive cough Exam Narrative: WDWN in NAD skin no rash or subQ nodules head ncat lungs symmetric and rare crackles cor reg no rub abd BS+ no tenderness ext 1 to2+ bilateral edema. Right Heel ulcer has a bandage Objective Data Vital Signs Vital Signs: Vital Signs - 24 hr 01/07/25 14:00 01/07/25 14:15 01/07/25 14:30 Temperature Pulse Rate 84 78 88 Respiratory Rate Blood Pressure 134/67 132/60 142/66 H Pulse Oximetry Oxygen Delivery Fraction of Inspired Oxygen 01/07/25 14:45 01/07/25 15:00 01/07/25 15:15 Temperature Pulse Rate 78 84 83 Respiratory Rate Blood Pressure 149/62 H 134/75 147/67 H Pulse Oximetry Oxygen Delivery Fraction of Inspired Oxygen 01/07/25 15:30 01/07/25 15:42 01/07/25 15:45 Temperature Pulse Rate 82 95 81 Respiratory Rate Blood Pressure 136/65 141/67 H Pulse Oximetry Oxygen Delivery Fraction of Inspired Oxygen 01/07/25 16:00 01/07/25 16:15 01/07/25 16:30 Temperature Pulse Rate 81 88 88 Respiratory Rate Blood Pressure 138/68 139/66 138/68 Pulse Oximetry Oxygen Delivery Fraction of Inspired Oxygen 01/07/25 16:45 01/07/25 16:57 01/07/25 17:00 Temperature 98.7 F Pulse Rate 82 90 90 Respiratory Rate 20 Blood Pressure 125/68 126/67 134/77 Pulse Oximetry 97 Oxygen Delivery Fraction of Inspired Oxygen 01/07/25 20:00 01/07/25 20:16 01/07/25 20:16 Temperature Pulse Rate 80 Respiratory Rate 20 Blood Pressure Pulse Oximetry 95 Oxygen Delivery Room Air Room Air Fraction of Inspired Oxygen 21 01/07/25 20:25 01/07/25 20:31 01/07/25 20:49 Temperature 97.6 F Pulse Rate 86 88 88 Respiratory Rate 20 18 Blood Pressure 129/65 Pulse Oximetry 98 Oxygen Delivery Fraction of Inspired Oxygen 01/08/25 02:18 01/08/25 02:26 01/08/25 04:58 Temperature 97.8 F Pulse Rate 92 94 78 Respiratory Rate 18 18 18 Blood Pressure 117/64 Pulse Oximetry 97 Oxygen Delivery Fraction of Inspired Oxygen 01/08/25 08:00 01/08/25 08:50 01/08/25 09:03 Temperature 97.9 F Pulse Rate 81 77 Respiratory Rate 18 Blood Pressure 153/76 H 140/72 Pulse Oximetry Oxygen Delivery Room Air Fraction of Inspired Oxygen 01/08/25 09:15 01/08/25 09:30 01/08/25 09:45 Temperature Pulse Rate 75 87 83 Respiratory Rate Blood Pressure 126/82 142/80 H 150/90 H Pulse Oximetry Oxygen Delivery Fraction of Inspired Oxygen 01/08/25 10:00 01/08/25 10:15 01/08/25 10:30 Temperature Pulse Rate 86 82 80 Respiratory Rate Blood Pressure 167/88 H 166/80 H 142/82 H Pulse Oximetry Oxygen Delivery Fraction of Inspired Oxygen 01/08/25 10:45 01/08/25 11:00 01/08/25 11:15 Temperature Pulse Rate 83 84 82 Respiratory Rate Blood Pressure 148/74 H 140/74 140/74 Pulse Oximetry Oxygen Delivery Fraction of Inspired Oxygen Intake/Output Intake/Output: Intake & Output 01/05/25 01/06/25 01/07/25 01/08/25 23:59 23:59 23:59 23:59 Intake Total 50 970 850 640 Output Total 3400 4000 4000 Balance -3350 -3030 -3150 640 Meds/Results Medications: Active Medications Generic Name Dose Route Start Last Admin Trade Name Freq PRN Reason Stop Dose Admin Acetaminophen 650 mg 01/05/25 14:36 Acetaminophen 325 Mg Tablet PO Q4H PRN Mild Pain (1-3) or Fever Hydrocodone Bitart/Acetaminophen 1 tab 01/05/25 14:36 01/08/25 13:02 Hydrocodone/Acetaminophen (*Crx) 5-325 Mg Tablet PO 1 tab Q4H PRN Administration Pain Rated 4-6 Albuterol/Ipratropium 3 ml 01/05/25 20:00 01/08/25 09:14 Ipratropium 0.5 Mg/Albuterol Sulfate 2.5 Mg Ampul.Neb 3 Ml INHALATION Not Given Q6HRT DAVID Aspirin 81 mg 01/06/25 09:00 01/08/25 09:21 Aspirin 81 Mg Enteric Tablet PO Not Given DAILY DAVID Atorvastatin Calcium 20 mg 01/06/25 09:00 01/08/25 09:21 Atorvastatin 20 Mg Tablet PO Not Given DAILY DAVID Carvedilol 25 mg 01/05/25 21:00 01/08/25 09:20 Carvedilol 25 Mg Tablet PO Not Given Q12HR DAVID Dextrose 12.5 gm 01/05/25 17:06 Dextrose 50% 25 Gm/50 Ml Syringe IV PUSH PRN PRN Hypoglycemia Protocol Enoxaparin Sodium 30 mg 01/06/25 09:00 01/08/25 09:20 Enoxaparin 30 Mg/0.3 Ml Syringe SUB-Q Not Given DAILY DAVID Epoetin David-epbx 10,000 units 01/07/25 10:10 01/07/25 15:22 Epoetin David-Epbx 10,000 Units/Ml Vial IV PUSH 10,000 units MOWEFR DAVID Administration Finasteride 5 mg 01/06/25 09:00 01/08/25 09:21 Finasteride 5 Mg Tablet PO Not Given QAM DAVID Glucagon 1 mg 01/05/25 17:06 Glucagon For Inj 1 Mg Vial IM PRN PRN Hypoglycemia Protocol Glucose 15 gm 01/05/25 17:06 Glucose Oral Gel 15 Gm Of Glucse In 37.5 Gm Tube PO PRN PRN Hypoglycemia Protocol Dextrose 1,000 mls @ 100 mls/hr 01/05/25 17:06 Dextrose 5% 1,000 Ml IVPB PRN PRN Hypoglycemia Protocol Iron Sucrose 200 mg/ Sodium 110 mls @ 220 mls/hr 01/08/25 09:00 01/08/25 13:03 Chloride IVPB 01/12/25 09:29 220 mls/hr QAM DAVID Administration Ceftriaxone Sodium 1 gm in 50 mls @ 100 mls/hr 01/07/25 19:00 01/07/25 19:20 Rocephin 1 Gm/Ns 50 Ml IVPB Infused Q24H DAVID Infusion Azithromycin 500 mg in 250 mls @ 250 mls/hr 01/07/25 20:00 01/07/25 19:38 Zithromax IVPB 250 mls/hr Q24H DAVID Administration Insulin Aspart 4 - 8 units 01/06/25 08:00 01/08/25 13:03 Insulin Aspart (*Bkc) 100 Units/Ml SUB-Q 4 units TIDWM DAVID Administration Protocol Insulin Aspart 2 - 4 units 01/05/25 21:00 01/07/25 20:49 Insulin Aspart (*Bkc) 100 Units/Ml SUB-Q 2 units HS DAVID Administration Protocol Insulin Glargine 6 units 01/06/25 09:00 01/08/25 13:03 Insulin Glargine (*Bkc) 100 Units/Ml SUB-Q 6 units DAILY DAVID Administration Loratadine 10 mg 01/06/25 09:00 01/08/25 09:20 Loratadine 10 Mg Tablet PO Not Given QAM DAVID Ondansetron HCl 4 mg 01/05/25 16:47 Ondansetron Inj 4 Mg/2 Ml Vial IV PUSH Q6H PRN Nausea And Vomiting Sevelamer Carbonate 3.2 gm 01/06/25 08:00 01/08/25 13:03 Sevelamer Carbonate 0.8 Gm Oral Powder Packet PO 3.2 gm TIDWM DAVID Administration Tamsulosin HCl 0.4 mg 01/05/25 21:00 01/07/25 20:49 Tamsulosin Hcl 0.4 Mg Capsule PO 0.4 mg QHS DAVID Administration Radiology Results: ITS Impressions Chest X-Ray 01/05/25 10:35 IMPRESSION: Bilateral basal pneumonia. Bilateral interstitial thickening suggestive of pneumonitis versus pulmonary edema. Head/Neck CTA 01/05/25 10:49 IMPRESSION: 1. CTA neck. Percent stenosis per NASCET criteria is 25% on the right and 10% on the left. 2. CTA of the head with no occlusion or significant stenosis. 3. 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 Labs Labs: Laboratory Results - last 24 hr 01/07/25 01/07/25 01/08/25 17:53 20:42 05:24 WBC 4.8 RBC 3.06 L Hgb 8.2 L Hct 28.5 L MCV 93.1 MCH 26.8 MCHC 28.8 L RDW 20.0 H Plt Count 178 MPV 10.8 H Immature Gran % (Auto) 1.0 H Neut % (Auto) 65.2 Lymph % (Auto) 14.6 L [place] % (Auto) 15.2 H Eos % (Auto) 2.7 Baso % (Auto) 1.3 H Lymph # (Auto) 0.70 L [place] # (Auto) 0.7 H Eos # (Auto) 0.1 Baso # (Auto) 0.1 Abs Immat Gran (auto) 0.05 H Absolute Neuts (auto) 3.1 Absolute Nucleated RBC 0.000 Band Neutrophils % Not Reportable Nucleated RBC % 0.0 Platelet Estimate Adequate % Immature Plt Fraction 3.9 Hypochromasia 1+ Anisocytosis 1+ Tear Drop Cells 1+ Ovalocytes 1+ Schistocytes None seen Absolute Retic 0.08 Percent Retic 2.60 Immature Retic Fraction 24.5 H Retic Hgb Content 28.2 Sodium 137 Potassium 4.0 Chloride 96 L Carbon Dioxide 32 H Anion Gap 9 BUN 24 H D Creatinine 4.36 H Estim Creat Clear Calc 13 Estimated GFR 13 L Glucose 205 H POC Capillary Glucose 164 H 226 H Calcium 9.5 Phosphorus 4.5 Total Bilirubin 0.2 AST 13 L ALT 17 Alkaline Phosphatase 75 Total Protein 6.0 L Albumin 3.4 L 01/08/25 01/08/25 07:42 12:38 WBC RBC Hgb Hct MCV MCH MCHC RDW Plt Count MPV Immature Gran % (Auto) Neut % (Auto) Lymph % (Auto) [place] % (Auto) Eos % (Auto) Baso % (Auto) Lymph # (Auto) [place] # (Auto) Eos # (Auto) Baso # (Auto) Abs Immat Gran (auto) Absolute Neuts (auto) Absolute Nucleated RBC Band Neutrophils % Nucleated RBC % Platelet Estimate % Immature Plt Fraction Hypochromasia Anisocytosis Tear Drop Cells Ovalocytes Schistocytes Absolute Retic Percent Retic Immature Retic Fraction Retic Hgb Content Sodium Potassium Chloride Carbon Dioxide Anion Gap BUN Creatinine Estim Creat Clear Calc Estimated GFR Glucose POC Capillary Glucose 177 H 232 H Calcium Phosphorus Total Bilirubin AST ALT Alkaline Phosphatase Total Protein Albumin
[2025-01-08 14:41] LABS: MRSA (PCR) NOT DETECTED (NOT DETECTE)
[2025-01-08 16:59] LABS: Glucose Point of Care 197 mg/dl (65-105)
[2025-01-08] MEDS: AZITHROMYCIN 500 MG/NS 250 ML 500 MG/250 ML BAG 250 MG IVPB (20:24)
[2025-01-08] MEDS: carvediloL 25 MG TABLET PO (20:28)
[2025-01-08] MEDS: TAMSULOSIN HCL 0.4 MG CAPSULE PO (20:29)
[2025-01-08 21:13] LABS: Glucose Point of Care 230 mg/dl (65-105)
[2025-01-09] VITALS (16 sets, daily range): BP systolic 109–150; BP diastolic 51–70; PULSE 68–86; RESP 16–20; TEMP 36–36.8; O2SAT 91–100
[2025-01-09] MEDS: IPRATROPIUM 0.5 MG/ALBUTEROL SULFATE 2.5 MG AMPUL.NEB 3 ML INHALATION ×3 (03:04→21:01)
[2025-01-09 05:12] LABS: Basophils Absolute Auto 0.1 K/mm3 (0.0-0.1); Basophils Percent Auto 1.1 % (0.2-1.2); Eosinophils Absolute Auto 0.2 K/mm3 (0-0.3); Eosinophils Percent Auto 4.1 % (0-4.4); Hematocrit 28.4 % (42.0-52.0); Hemoglobin 8.1 g/dL (14.0-18.0); Immature Granulocyte Absolute 0.05 K/mm3 (0.00-0.031); Immature Granulocyte Percent A 0.9 % (0-0.5); Lymphocytes Absolute Auto 0.85 K/mm3 (0.9-3.2); Lymphocytes Percent Auto 15.7 % (18.3-44.2); Mean Corpuscular HGB Conc 28.5 g/dl (32-36); Mean Corpuscular Hemoglobin 26.1 pg (26-34); Mean Corpuscular Volume 91.6 fl (80-100); Mean Platelet Volume 10.7 fl (7.4-10.4); Monocytes Absolute Auto 0.8 K/mm3 (0.1-0.6); Monocytes Percent Auto 13.8 % (2.6-8.5); Neutrophils Absolute Auto 3.5 K/mm3 (1.3-6.7); Neutrophils Percent Auto 64.4 % (45.5-73.1); Nucleated Red Blood Cells Perc 0.6 % (0.0-0.2); Platelet Count Result 202 k/mm3 (150-375); Red Cell Distribution Width 19.9 % (11.5-14.5); White Blood Count 5.4 K/mm3 (4.5-10.0)
[2025-01-09 05:28] LABS: Alanine Aminotransferase 15 U/L (6-50); Albumin Level 3.3 g/dL (3.5-5.1); Alkaline Phosphatase 63 U/L (38-126); Anion Gap 10 mmol/L (4-12); Aspartate Amino Transferase 14 U/L (17-59); Bilirubin,Total 0.3 mg/dL (0.2-1.3); Blood Urea Nitrogen 39 mg/dL (9-20); Carbon Dioxide 30 mmol/L (22-30); Chloride 94 mmol/L (98-107); Estimated CRCL calculation 12 ml/min; Estimated Glomerular Filt Rate 10; Glucose 139 mg/dL (65-110); Potassium 4.3 mmol/L (3.4-5.0); Sodium 134 mmol/L (137-145)
[2025-01-09 05:41] LABS: Anisocytosis 1+; Hypochromasia 1+; Ovalocytes 1+; Platelet Estimate Adequate (Adequate); Poikilocytosis 1+; Schistocytes None Seen; Tear Drop Cells 1+
[2025-01-09 05:50] LABS: Band Neutrophils Percent 0 % (0-6)
--- NOTE | 2025-01-09 08:10 | P.PNIM_ITS ---
Progress Note: A&P Assessment and Plan (1) Acute exacerbation of CHF (congestive heart failure): Qualifiers: Heart failure type: unspecified Qualified Code(s): I50.9 - Heart failure, unspecified Code(s): I50.9 - Heart failure, unspecified Status: Acute (2) Coronary artery disease: Qualifiers: Associated angina: without angina Coronary Disease-Associated Artery/Lesion type: bypass graft [place] vs. transplanted heart: [place] heart Qualified Code(s): I25.810 - Atherosclerosis of coronary artery bypass graft(s) without angina pectoris Code(s): I25.10 - Atherosclerotic heart disease of [place] coronary artery without angina pectoris Status: Acute (3) Elevated troponin: Code(s): R79.89 - Other specified abnormal findings of blood chemistry Status: Acute Plan Acute respiratory failure with hypoxemic and hypercapnia Resulting from pneumonia and pulmonary edema Start DuoNeb scheduled albuterol nebulizer p.r.n. Patient is on BiPAP Follow-up ABG: Hypoxemic and hypercapnic respiratory failure Off BiPAP Patient is on 2 L oxygen Community-acquired pneumonia J18.9 - Pneumonia, unspecified organism Status: Resolved Assessment and Plan: chest x-ray showing bilateral basal pneumonia, bilateral interstitial thickening suggestive of pneumonitis versus pulmonary edema Continue Rocephin and azithromycin since 01/07 May changed to oral antibiotics tomorrow if patient condition continued to improve End-stage renal disease on hemodialysis: Code(s): N18.6 - End stage renal disease; Z99.2 - Dependence on renal dialysis Status: Acute Assessment and Plan: initial creatinine 5.80, EGFR 10, patient is overloaded with fluid and pulmonary edema Consult [facility] cleaner for dialysis Patient will have dialysis tomorrow Elevated troponin: Code(s): R79.89 - Other specified abnormal findings of blood chemistry Status: Acute Assessment and Plan: Patient denies chest pain troponin 0.088 likely demand ischemia from fluid overload Altered mental status: Code(s): R41.82 - Altered mental status, unspecified Status: Acute Assessment and Plan: Patient difficult to arouse after dialysis before arrival to the ED Patient expressed in the ER that around 1 a.m. he couldn't speak which lasted for about 2 hours. He has had multiple falls in the past, some that were evaluated in our ER. Possible due to respiratory failure, uremia Concerns for seizure activity with post ictal state per neurologist evaluation Pending EEG Neuro check: No focal deficits or edema sensation Patient is alert oriented x3, able to answer question and follow commands, no focal weakness. Mental status back to normal on 01/07 IDDM (insulin dependent diabetes mellitus): Status: Chronic Assessment and Plan: Uncontrolled type 2 diabetes. Blood sugar 304 Continue Lantus 6 units daily, insulin sliding scale a.c. and q.h.s. Well controlled now 01/07 (7) Hypertension: Code(s): I10 - Essential (primary) hypertension Status: Acute Assessment and Plan: Uncontrolled blood pressure ranging 128/61 to 144/77 continue Coreg and amlodipine * * (8) Dyslipidemia: Code(s): E78.5 - Hyperlipidemia, unspecified Status: Acute Assessment and Plan: * continue aspirin and atorvastatin * (9) CARITO (obstructive sleep apnea): Code(s): G47.33 - Obstructive sleep apnea (adult) (pediatric) Status: Acute Assessment and Plan: BiPAP at night due to hypercapnia and hypoxia May discharge patient tomorrow after hemodialysis if patient condition continues to improve Subjective Date/time seen: 01/09/25 08:10 Interval history: I saw examined patient today. Patient feels better, still has cough with large amount of steak yellow phlegm. Dyspnea is improving, afebrile blood pressure s table, labs reviewed Exam Narrative: GENERAL: Pleasant, in no acute distress. Well-nourished. - EYES: EOMI. Anicteric. - HENT: Moist mucous membranes. - LUNGS: Coarse breath sound bilaterall y - CARDIOVASCULAR: Regular rate and rhyth m. No murmur. No JVD. - ABDOMEN: Soft, non-tender and non-dist ended. No palpable masses. - EXTREMITIES: No edema. Peripheral puls es 2+. Non-tender. - NEUROLOGIC: No focal neurological defi cits. CN II-XII grossly intact. - PSYCHIATRIC: Awake, Alert and oriented x 3. Appropriate mood and affect. - SKIN: No rashes or lesions. Warm. - LYMPH: No cervical lymphadenopathy. Objective Data Vital Signs Vital Signs: Vital Signs - 24 hr 01/08/25 08:50 01/08/25 09:03 01/08/25 09:15 Temperature 97.9 F Pulse Rate 81 77 75 Respiratory Rate 18 Blood Pressure 153/76 H 140/72 126/82 Pulse Oximetry Oxygen Delivery Fraction of Inspired Oxygen 01/08/25 09:30 01/08/25 09:45 01/08/25 10:00 Temperature Pulse Rate 87 83 86 Respiratory Rate Blood Pressure 142/80 H 150/90 H 167/88 H Pulse Oximetry Oxygen Delivery Fraction of Inspired Oxygen 01/08/25 10:15 01/08/25 10:30 01/08/25 10:45 Temperature Pulse Rate 82 80 83 Respiratory Rate Blood Pressure 166/80 H 142/82 H 148/74 H Pulse Oximetry Oxygen Delivery Fraction of Inspired Oxygen 01/08/25 11:00 01/08/25 11:15 01/08/25 11:30 Temperature Pulse Rate 84 82 68 Respiratory Rate Blood Pressure 140/74 140/74 132/80 Pulse Oximetry Oxygen Delivery Fraction of Inspired Oxygen 01/08/25 11:45 01/08/25 12:00 01/08/25 12:05 Temperature Pulse Rate 76 82 81 Respiratory Rate Blood Pressure 148/84 H 153/84 H 159/82 H Pulse Oximetry Oxygen Delivery Fraction of Inspired Oxygen 01/08/25 12:30 01/08/25 15:02 01/08/25 15:02 Temperature 97.7 F Pulse Rate 74 86 Respiratory Rate 18 18 Blood Pressure 159/78 H Pulse Oximetry 98 Oxygen Delivery Room Air Fraction of Inspired Oxygen 01/08/25 15:11 01/08/25 16:00 01/08/25 20:00 Temperature 97.5 F L Pulse Rate 87 83 88 Respiratory Rate 18 20 18 Blood Pressure 180/85 H Pulse Oximetry 100 92 Oxygen Delivery Room Air Fraction of Inspired Oxygen 21 01/08/25 20:28 01/08/25 20:36 01/08/25 22:03 Temperature 97.3 F L Pulse Rate 84 84 85 Respiratory Rate 12 18 Blood Pressure 134/64 Pulse Oximetry 92 Oxygen Delivery Fraction of Inspired Oxygen 01/08/25 22:06 01/08/25 23:45 01/09/25 03:05 Temperature 97.4 F L Pulse Rate 88 65 77 Respiratory Rate 16 18 Blood Pressure 129/62 Pulse Oximetry 92 99 Oxygen Delivery Room Air Fraction of Inspired Oxygen 01/09/25 03:13 01/09/25 06:08 Temperature 97.6 F Pulse Rate 79 85 Respiratory Rate 18 20 Blood Pressure 150/70 H Pulse Oximetry 97 Oxygen Delivery Fraction of Inspired Oxygen Intake/Output Intake/Output: Intake & Output 01/06/25 01/07/25 01/08/25 01/09/25 23:59 23:59 23:59 23:59 Intake Total 970 1100 1330 200 Output Total 4000 4000 3000 Balance -3030 -2900 -1670 200 Meds/Results Medications: Active Medications Generic Name Dose Route Start Last Admin Trade Name Freq PRN Reason Stop Dose Admin Acetaminophen 650 mg 01/05/25 14:36 Acetaminophen 325 Mg Tablet PO Q4H PRN Mild Pain (1-3) or Fever Hydrocodone Bitart/Acetaminophen 1 tab 01/05/25 14:36 01/08/25 20:28 Hydrocodone/Acetaminophen (*Crx) 5-325 Mg Tablet PO 1 tab Q4H PRN Administration Pain Rated 4-6 Albuterol/Ipratropium 3 ml 01/05/25 20:00 01/09/25 03:04 Ipratropium 0.5 Mg/Albuterol Sulfate 2.5 Mg Ampul.Neb 3 Ml INHALATION 3 ml Q6HRT DAVID Administration Aspirin 81 mg 01/06/25 09:00 01/08/25 09:21 Aspirin 81 Mg Enteric Tablet PO Not Given DAILY DAVID Atorvastatin Calcium 20 mg 01/06/25 09:00 01/08/25 09:21 Atorvastatin 20 Mg Tablet PO Not Given DAILY DAVID Carvedilol 25 mg 01/05/25 21:00 01/08/25 20:28 Carvedilol 25 Mg Tablet PO 25 mg Q12HR DAVID Administration Dextrose 12.5 gm 01/05/25 17:06 Dextrose 50% 25 Gm/50 Ml Syringe IV PUSH PRN PRN Hypoglycemia Protocol Enoxaparin Sodium 30 mg 01/06/25 09:00 01/08/25 09:20 Enoxaparin 30 Mg/0.3 Ml Syringe SUB-Q Not Given DAILY DAVID Epoetin David-epbx 10,000 units 01/07/25 10:10 01/07/25 15:22 Epoetin David-Epbx 10,000 Units/Ml Vial IV PUSH 10,000 units MOWEFR DAVID Administration Finasteride 5 mg 01/06/25 09:00 01/08/25 09:21 Finasteride 5 Mg Tablet PO Not Given QAM DAVID Glucagon 1 mg 01/05/25 17:06 Glucagon For Inj 1 Mg Vial IM PRN PRN Hypoglycemia Protocol Glucose 15 gm 01/05/25 17:06 Glucose Oral Gel 15 Gm Of Glucse In 37.5 Gm Tube PO PRN PRN Hypoglycemia Protocol Dextrose 1,000 mls @ 100 mls/hr 01/05/25 17:06 Dextrose 5% 1,000 Ml IVPB PRN PRN Hypoglycemia Protocol Iron Sucrose 200 mg/ Sodium 110 mls @ 220 mls/hr 01/08/25 09:00 01/08/25 13:33 Chloride IVPB 01/12/25 09:29 Infused QAM DAVID Infusion Ceftriaxone Sodium 1 gm in 50 mls @ 100 mls/hr 01/07/25 19:00 01/08/25 20:29 Rocephin 1 Gm/Ns 50 Ml IVPB Infused Q24H DAVID Infusion Azithromycin 500 mg in 250 mls @ 250 mls/hr 01/07/25 20:00 01/08/25 21:49 Zithromax IVPB Infused Q24H DAVID Infusion Insulin Aspart 4 - 8 units 01/06/25 08:00 01/08/25 17:00 Insulin Aspart (*Bkc) 100 Units/Ml SUB-Q Not Given TIDWM [facility] Protocol Insulin Aspart 2 - 4 units 01/05/25 21:00 01/08/25 21:00 Insulin Aspart (*Bkc) 100 Units/Ml SUB-Q 2 units HS DAVID Administration Protocol Insulin Glargine 6 units 01/06/25 09:00 01/08/25 13:03 Insulin Glargine (*Bkc) 100 Units/Ml SUB-Q 6 units DAILY DAVID Administration Loratadine 10 mg 01/06/25 09:00 01/08/25 09:20 Loratadine 10 Mg Tablet PO Not Given QAM DAVID Ondansetron HCl 4 mg 01/05/25 16:47 Ondansetron Inj 4 Mg/2 Ml Vial IV PUSH Q6H PRN Nausea And Vomiting Sevelamer Carbonate 3.2 gm 01/06/25 08:00 01/08/25 17:15 Sevelamer Carbonate 0.8 Gm Oral Powder Packet PO 3.2 gm TIDWM DAVID Administration Tamsulosin HCl 0.4 mg 01/05/25 21:00 01/08/25 20:29 Tamsulosin Hcl 0.4 Mg Capsule PO 0.4 mg QHS DAVID Administration Radiology Results: ITS Impressions Chest X-Ray 01/05/25 10:35 IMPRESSION: Bilateral basal pneumonia. Bilateral interstitial thickening suggestive of pneumonitis versus pulmonary edema. Head/Neck CTA 01/05/25 10:49 IMPRESSION: 1. CTA neck. Percent stenosis per NASCET criteria is 25% on the right and 10% on the left. 2. CTA of the head with no occlusion or significant stenosis. 3. 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 Labs Labs: Laboratory Results - last 24 hr 01/08/25 01/08/25 01/08/25 12:38 13:16 16:53 WBC RBC Hgb Hct MCV MCH MCHC RDW Plt Count MPV Immature Gran % (Auto) Neut % (Auto) Lymph % (Auto) [place] % (Auto) Eos % (Auto) Baso % (Auto) Lymph # (Auto) [place] # (Auto) Eos # (Auto) Baso # (Auto) Abs Immat Gran (auto) Absolute Neuts (auto) Absolute Nucleated RBC Band Neutrophils % Nucleated RBC % Platelet Estimate Hypochromasia Poikilocytosis Anisocytosis Tear Drop Cells Ovalocytes Schistocytes Sodium Potassium Chloride Carbon Dioxide Anion Gap BUN Creatinine Estim Creat Clear Calc Estimated GFR Glucose POC Capillary Glucose 232 H 197 H Calcium Total Bilirubin AST ALT Alkaline Phosphatase Total Protein Albumin Nasal MRSA (PCR) Not detected 01/08/25 01/09/25 20:51 04:55 WBC 5.4 RBC 3.10 L Hgb 8.1 L Hct 28.4 L MCV 91.6 MCH 26.1 MCHC 28.5 L RDW 19.9 H Plt Count 202 MPV 10.7 H Immature Gran % (Auto) 0.9 H Neut % (Auto) 64.4 Lymph % (Auto) 15.7 L [place] % (Auto) 13.8 H Eos % (Auto) 4.1 Baso % (Auto) 1.1 Lymph # (Auto) 0.85 L [place] # (Auto) 0.8 H Eos # (Auto) 0.2 Baso # (Auto) 0.1 Abs Immat Gran (auto) 0.05 H Absolute Neuts (auto) 3.5 Absolute Nucleated RBC 0.030 H Band Neutrophils % 0 Nucleated RBC % 0.6 H Platelet Estimate Adequate Hypochromasia 1+ Poikilocytosis 1+ Anisocytosis 1+ Tear Drop Cells 1+ Ovalocytes 1+ Schistocytes None seen Sodium 134 L Potassium 4.3 Chloride 94 L Carbon Dioxide 30 Anion Gap 10 BUN 39 H D Creatinine 5.39 H Estim Creat Clear Calc 12 Estimated GFR 10 L Glucose 139 H POC Capillary Glucose 230 H Calcium 10.0 Total Bilirubin 0.3 AST 14 L ALT 15 Alkaline Phosphatase 63 Total Protein 6.0 L Albumin 3.3 L Nasal MRSA (PCR)
[2025-01-09 08:31] LABS: Glucose Point of Care 115 mg/dl (65-105)
[2025-01-09 08:43] LABS: Glucose Point of Care 117 mg/dl (65-105)
[2025-01-09] MEDS: carvediloL 25 MG TABLET PO ×2 (09:37→20:11)
[2025-01-09] MEDS: ASPIRIN 81 MG ENTERIC TABLET PO (09:39)
[2025-01-09] MEDS: ATORVASTATIN 20 MG TABLET PO (09:40)
[2025-01-09] MEDS: LORATADINE 10 MG TABLET PO (09:40)
[2025-01-09] MEDS: FINASTERIDE 5 MG TABLET PO (09:40)
[2025-01-09] MEDS: SEVELAMER CARBONATE 0.8 GM ORAL POWDER PACKET 3.2 GM PO ×3 (09:43→17:16)
--- NOTE | 2025-01-09 09:43 | PCRCNOTE ---
Window of time for administration has passed. See next scheduled administration.
[2025-01-09] MEDS: ENOXAPARIN 30 MG/0.3 ML SYRINGE SUB-Q (09:49)
[2025-01-09] MEDS: INSULIN GLARGINE (*BKC) 100 UNITS/ML 6 UNITS SUB-Q (09:51)
[2025-01-09] MEDS: HYDROcodone/acetaminophen (*CRX) 5-325 MG TABLET 1 TAB PO ×2 (11:11→17:16)
[2025-01-09] MEDS: IRON SUCROSE COMPLEX 200 MG in SODIUM CHLORIDE 0.9% IV 100 ML 220 MG IVPB (11:14)
--- NOTE | 2025-01-09 11:14 | PM.PNNEP ---
Progress Note: A&P Assessment and Plan (1) End-stage renal disease on hemodialysis: Code(s): N18.6 - End stage renal disease; Z99.2 - Dependence on renal dialysis Status: Acute Assessment and Plan: The patient has end-stage renal disease. This is due to diabetes and hypertension. Vascular disease is probably playing a role as well. Volume overload is improving. will do another treatment tomorrow, at [place] if not here still . No objection to discharge today He understands 5 cups per day fluid. He repeated this back to me! (2) Hypertension: Code(s): I10 - Essential (primary) hypertension Status: Acute Assessment and Plan: the patient's blood pressure is good (3) Diabetes: Code(s): E11.9 - Type 2 diabetes mellitus without complications Status: Acute Assessment and Plan: Management per hospitalists (4) Anemia: Code(s): D64.9 - Anemia, unspecified Status: Chronic Assessment and Plan: hemoglobin is 8.1. Continue SRIKANTH (5) Acute exacerbation of CHF (congestive heart failure): Qualifiers: Heart failure type: unspecified Qualified Code(s): I50.9 - Heart failure, unspecified Code(s): I50.9 - Heart failure, unspecified Status: Acute Assessment and Plan: The patient has volume overload. he had an echocardiogram in October showing normal LV function but some diastolic dysfunction. He has right-sided problems because of his sleep apnea most likely. He has moderate tricuspid regurgitation is well , including pulmonary hypertension with a pressure of 49. Almost all the fluid is off Long talk with patient about fluid restriction. 5-6 cups per day should be the maximum intake. (6) Peripheral vascular disease: Onset Date: ~03/2023 Code(s): I73.9 - Peripheral vascular disease, unspecified Status: Acute Assessment and Plan: He had stents placed in his lower extremities. This has been doing okay apparently. (7) CARITO (obstructive sleep apnea): Code(s): G47.33 - Obstructive sleep apnea (adult) (pediatric) Status: Acute Assessment and Plan: he does not use a CPAP machine at home (8) Dyslipidemia: Code(s): E78.5 - Hyperlipidemia, unspecified Status: Acute Assessment and Plan: he is on atorvastatin (9) Altered mental status: Code(s): R41.82 - Altered mental status, unspecified Status: Acute Assessment and Plan: Resolved Subjective Date/time seen: 01/09/25 11:14 Interval history: pt feels better. sitting up in a chair Exam Narrative: WDWN in NAD skin no rash or subQ nodules head ncat lungs fairly clear cor reg no rub abd BS+ no tenderness ext 1+ bilateral edema. Right Heel ulcer has a bandage Objective Data Vital Signs Vital Signs: Vital Signs - 24 hr 01/08/25 11:15 01/08/25 11:30 01/08/25 11:45 Temperature Pulse Rate 82 68 76 Respiratory Rate Blood Pressure 140/74 132/80 148/84 H Pulse Oximetry Oxygen Delivery Fraction of Inspired Oxygen 01/08/25 12:00 01/08/25 12:05 01/08/25 12:30 Temperature 97.7 F Pulse Rate 82 81 74 Respiratory Rate 18 Blood Pressure 153/84 H 159/82 H 159/78 H Pulse Oximetry Oxygen Delivery Fraction of Inspired Oxygen 01/08/25 15:02 01/08/25 15:02 01/08/25 15:11 Temperature Pulse Rate 86 87 Respiratory Rate 18 18 Blood Pressure Pulse Oximetry 98 Oxygen Delivery Room Air Fraction of Inspired Oxygen 01/08/25 16:00 01/08/25 20:00 01/08/25 20:28 Temperature 97.5 F L Pulse Rate 83 88 84 Respiratory Rate 20 18 Blood Pressure 180/85 H Pulse Oximetry 100 92 Oxygen Delivery Room Air Fraction of Inspired Oxygen 21 01/08/25 20:36 01/08/25 22:03 01/08/25 22:06 Temperature 97.3 F L Pulse Rate 84 85 88 Respiratory Rate 12 18 Blood Pressure 134/64 Pulse Oximetry 92 92 Oxygen Delivery Room Air Fraction of Inspired Oxygen 01/08/25 23:45 01/09/25 03:05 01/09/25 03:13 Temperature 97.4 F L Pulse Rate 65 77 79 Respiratory Rate 16 18 18 Blood Pressure 129/62 Pulse Oximetry 99 Oxygen Delivery Fraction of Inspired Oxygen 01/09/25 06:08 01/09/25 07:30 01/09/25 08:00 Temperature 97.6 F 96.8 F L Pulse Rate 85 82 Respiratory Rate 20 16 Blood Pressure 150/70 H 131/60 Pulse Oximetry 97 100 99 Oxygen Delivery Room Air Fraction of Inspired Oxygen 01/09/25 09:18 01/09/25 09:37 01/09/25 11:05 Temperature 97.5 F L Pulse Rate 86 82 72 Respiratory Rate 16 20 Blood Pressure 126/53 L 109/55 L Pulse Oximetry 99 99 Oxygen Delivery Fraction of Inspired Oxygen Intake/Output Intake/Output: Intake & Output 01/06/25 01/07/25 01/08/25 01/09/25 23:59 23:59 23:59 23:59 Intake Total 970 1100 1330 677 Output Total 4000 4000 3000 Balance -3030 -2900 -1670 677 Meds/Results Medications: Active Medications Generic Name Dose Route Start Last Admin Trade Name Freq PRN Reason Stop Dose Admin Acetaminophen 650 mg 01/05/25 14:36 Acetaminophen 325 Mg Tablet PO Q4H PRN Mild Pain (1-3) or Fever Hydrocodone Bitart/Acetaminophen 1 tab 01/05/25 14:36 01/08/25 20:28 Hydrocodone/Acetaminophen (*Crx) 5-325 Mg Tablet PO 1 tab Q4H PRN Administration Pain Rated 4-6 Albuterol/Ipratropium 3 ml 01/05/25 20:00 01/09/25 09:43 Ipratropium 0.5 Mg/Albuterol Sulfate 2.5 Mg Ampul.Neb 3 Ml INHALATION Not Given Q6HRT DAVID Aspirin 81 mg 01/06/25 09:00 01/09/25 09:39 Aspirin 81 Mg Enteric Tablet PO 81 mg DAILY DAVID Administration Atorvastatin Calcium 20 mg 01/06/25 09:00 01/09/25 09:40 Atorvastatin 20 Mg Tablet PO 20 mg DAILY DAVID Administration Carvedilol 25 mg 01/05/25 21:00 01/09/25 09:37 Carvedilol 25 Mg Tablet PO 25 mg Q12HR DAVID Administration Dextrose 12.5 gm 01/05/25 17:06 Dextrose 50% 25 Gm/50 Ml Syringe IV PUSH PRN PRN Hypoglycemia Protocol Enoxaparin Sodium 30 mg 01/06/25 09:00 01/09/25 09:49 Enoxaparin 30 Mg/0.3 Ml Syringe SUB-Q 30 mg DAILY DAVID Administration Epoetin David-epbx 10,000 units 01/07/25 10:10 01/07/25 15:22 Epoetin David-Epbx 10,000 Units/Ml Vial IV PUSH 10,000 units MOWEFR DAVID Administration Finasteride 5 mg 01/06/25 09:00 01/09/25 09:40 Finasteride 5 Mg Tablet PO 5 mg QAM DAVID Administration Glucagon 1 mg 01/05/25 17:06 Glucagon For Inj 1 Mg Vial IM PRN PRN Hypoglycemia Protocol Glucose 15 gm 01/05/25 17:06 Glucose Oral Gel 15 Gm Of Glucse In 37.5 Gm Tube PO PRN PRN Hypoglycemia Protocol Dextrose 1,000 mls @ 100 mls/hr 01/05/25 17:06 Dextrose 5% 1,000 Ml IVPB PRN PRN Hypoglycemia Protocol Iron Sucrose 200 mg/ Sodium 110 mls @ 220 mls/hr 01/08/25 09:00 01/08/25 13:33 Chloride IVPB 01/12/25 09:29 Infused QAM DAVID Infusion Ceftriaxone Sodium 1 gm in 50 mls @ 100 mls/hr 01/07/25 19:00 01/08/25 20:29 Rocephin 1 Gm/Ns 50 Ml IVPB Infused Q24H DAVID Infusion Azithromycin 500 mg in 250 mls @ 250 mls/hr 01/07/25 20:00 01/08/25 21:49 Zithromax IVPB Infused Q24H DAVID Infusion Insulin Aspart 4 - 8 units 01/06/25 08:00 01/09/25 10:03 Insulin Aspart (*Bkc) 100 Units/Ml SUB-Q Not Given TIDWM [facility] Protocol Insulin Aspart 2 - 4 units 01/05/25 21:00 01/08/25 21:00 Insulin Aspart (*Bkc) 100 Units/Ml SUB-Q 2 units HS DAVID Administration Protocol Insulin Glargine 6 units 01/06/25 09:00 01/09/25 09:51 Insulin Glargine (*Bkc) 100 Units/Ml SUB-Q 6 units DAILY DAVID Administration Loratadine 10 mg 01/06/25 09:00 01/09/25 09:40 Loratadine 10 Mg Tablet PO 10 mg QAM DAVID Administration Ondansetron HCl 4 mg 01/05/25 16:47 Ondansetron Inj 4 Mg/2 Ml Vial IV PUSH Q6H PRN Nausea And Vomiting Sevelamer Carbonate 3.2 gm 01/06/25 08:00 01/09/25 09:43 Sevelamer Carbonate 0.8 Gm Oral Powder Packet PO 3.2 gm TIDWM DAVID Administration Tamsulosin HCl 0.4 mg 01/05/25 21:00 01/08/25 20:29 Tamsulosin Hcl 0.4 Mg Capsule PO 0.4 mg QHS DAVID Administration Radiology Results: ITS Impressions Chest X-Ray 01/05/25 10:35 IMPRESSION: Bilateral basal pneumonia. Bilateral interstitial thickening suggestive of pneumonitis versus pulmonary edema. Head/Neck CTA 01/05/25 10:49 IMPRESSION: 1. CTA neck. Percent stenosis per NASCET criteria is 25% on the right and 10% on the left. 2. CTA of the head with no occlusion or significant stenosis. 3. 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 Labs Labs: Laboratory Results - last 24 hr 01/08/25 01/08/25 01/08/25 12:38 13:16 16:53 WBC RBC Hgb Hct MCV MCH MCHC RDW Plt Count MPV Immature Gran % (Auto) Neut % (Auto) Lymph % (Auto) [place] % (Auto) Eos % (Auto) Baso % (Auto) Lymph # (Auto) [place] # (Auto) Eos # (Auto) Baso # (Auto) Abs Immat Gran (auto) Absolute Neuts (auto) Absolute Nucleated RBC Band Neutrophils % Nucleated RBC % Platelet Estimate Hypochromasia Poikilocytosis Anisocytosis Tear Drop Cells Ovalocytes Schistocytes Sodium Potassium Chloride Carbon Dioxide Anion Gap BUN Creatinine Estim Creat Clear Calc Estimated GFR Glucose POC Capillary Glucose 232 H 197 H Calcium Total Bilirubin AST ALT Alkaline Phosphatase Total Protein Albumin Nasal MRSA (PCR) Not detected 01/08/25 01/09/25 01/09/25 20:51 04:55 08:26 WBC 5.4 RBC 3.10 L Hgb 8.1 L Hct 28.4 L MCV 91.6 MCH 26.1 MCHC 28.5 L RDW 19.9 H Plt Count 202 MPV 10.7 H Immature Gran % (Auto) 0.9 H Neut % (Auto) 64.4 Lymph % (Auto) 15.7 L [place] % (Auto) 13.8 H Eos % (Auto) 4.1 Baso % (Auto) 1.1 Lymph # (Auto) 0.85 L [place] # (Auto) 0.8 H Eos # (Auto) 0.2 Baso # (Auto) 0.1 Abs Immat Gran (auto) 0.05 H Absolute Neuts (auto) 3.5 Absolute Nucleated RBC 0.030 H Band Neutrophils % 0 Nucleated RBC % 0.6 H Platelet Estimate Adequate Hypochromasia 1+ Poikilocytosis 1+ Anisocytosis 1+ Tear Drop Cells 1+ Ovalocytes 1+ Schistocytes None seen Sodium 134 L Potassium 4.3 Chloride 94 L Carbon Dioxide 30 Anion Gap 10 BUN 39 H D Creatinine 5.39 H Estim Creat Clear Calc 12 Estimated GFR 10 L Glucose 139 H POC Capillary Glucose 230 H 115 H Calcium 10.0 Total Bilirubin 0.3 AST 14 L ALT 15 Alkaline Phosphatase 63 Total Protein 6.0 L Albumin 3.3 L Nasal MRSA (PCR) 01/09/25 08:39 WBC RBC Hgb Hct MCV MCH MCHC RDW Plt Count MPV Immature Gran % (Auto) Neut % (Auto) Lymph % (Auto) [place] % (Auto) Eos % (Auto) Baso % (Auto) Lymph # (Auto) [place] # (Auto) Eos # (Auto) Baso # (Auto) Abs Immat Gran (auto) Absolute Neuts (auto) Absolute Nucleated RBC Band Neutrophils % Nucleated RBC % Platelet Estimate Hypochromasia Poikilocytosis Anisocytosis Tear Drop Cells Ovalocytes Schistocytes Sodium Potassium Chloride Carbon Dioxide Anion Gap BUN Creatinine Estim Creat Clear Calc Estimated GFR Glucose POC Capillary Glucose 117 H Calcium Total Bilirubin AST ALT Alkaline Phosphatase Total Protein Albumin Nasal MRSA (PCR)
[2025-01-09 11:36] LABS: Glucose Point of Care 340 mg/dl (65-105)
[2025-01-09 12:28] LABS: Glucose Point of Care 245 mg/dl (65-105)
[2025-01-09] MEDS: INSULIN ASPART (*BKC) 100 UNITS/ML SUB-Q ×2 (12:33→17:16)
--- NOTE | 2025-01-09 15:10 | PC.NURSE ---
On 01/09/25, the student, Carmen Gregg, provided care and completed [facility] documentation on this patient. I have reviewed the student's documentation and agree with the findings.
[2025-01-09 17:03] LABS: Glucose Point of Care 214 mg/dl (65-105)
[2025-01-09] MEDS: TAMSULOSIN HCL 0.4 MG CAPSULE PO (20:11)
[2025-01-09] MEDS: AZITHROMYCIN 500 MG/NS 250 ML 500 MG/250 ML BAG 250 MG IVPB (20:11)
[2025-01-09 21:45] LABS: Glucose Point of Care 169 mg/dl (65-105)
[2025-01-10] VITALS (31 sets, daily range): BP systolic 129–164; BP diastolic 51–81; PULSE 68–95; RESP 15–20; TEMP 36.3–37; O2SAT 93–100
[2025-01-10] MEDS: IPRATROPIUM 0.5 MG/ALBUTEROL SULFATE 2.5 MG AMPUL.NEB 3 ML INHALATION ×3 (01:27→15:12)
[2025-01-10 05:47] LABS: Basophils Absolute Auto 0.1 K/mm3 (0.0-0.1); Basophils Percent Auto 1.1 % (0.2-1.2); Eosinophils Absolute Auto 0.2 K/mm3 (0-0.3); Eosinophils Percent Auto 4.4 % (0-4.4); Hematocrit 27.9 % (42.0-52.0); Hemoglobin 8.1 g/dL (14.0-18.0); Immature Granulocyte Absolute 0.05 K/mm3 (0.00-0.031); Lymphocytes Absolute Auto 0.82 K/mm3 (0.9-3.2); Lymphocytes Percent Auto 15.6 % (18.3-44.2); Mean Corpuscular Hemoglobin 26.9 pg (26-34); Mean Corpuscular Volume 92.7 fl (80-100); Mean Platelet Volume 10.3 fl (7.4-10.4); Monocytes Absolute Auto 0.7 K/mm3 (0.1-0.6); Monocytes Percent Auto 13.2 % (2.6-8.5); Neutrophils Absolute Auto 3.4 K/mm3 (1.3-6.7); Neutrophils Percent Auto 64.7 % (45.5-73.1); Nucleated Red Blood Cells Perc 0.4 % (0.0-0.2); Platelet Count Result 194 k/mm3 (150-375); Red Blood Count 3.01 M/mm3 (4.6-6.20); Red Cell Distribution Width 19.9 % (11.5-14.5); White Blood Count 5.2 K/mm3 (4.5-10.0)
[2025-01-10 06:07] LABS: Alanine Aminotransferase 14 U/L (6-50); Albumin Level 3.5 g/dL (3.5-5.1); Alkaline Phosphatase 55 U/L (38-126); Anion Gap 9 mmol/L (4-12); Aspartate Amino Transferase 15 U/L (17-59); Bilirubin,Total 0.3 mg/dL (0.2-1.3); Blood Urea Nitrogen 52 mg/dL (9-20); Carbon Dioxide 30 mmol/L (22-30); Chloride 94 mmol/L (98-107); Estimated CRCL calculation 10 ml/min; Estimated Glomerular Filt Rate 8; Glucose 127 mg/dL (65-110); Potassium 5.5 mmol/L (3.4-5.0); Sodium 133 mmol/L (137-145)
[2025-01-10 06:29] LABS: Anisocytosis 1+
[2025-01-10 06:30] LABS: Platelet Estimate Adequate (Adequate); Schistocytes None Seen
[2025-01-10 08:01] LABS: Glucose Point of Care 127 mg/dl (65-105)
[2025-01-10] MEDS: IRON SUCROSE COMPLEX 200 MG in SODIUM CHLORIDE 0.9% IV 100 ML 220 MG IVPB (08:03)
[2025-01-10] MEDS: ASPIRIN 81 MG ENTERIC TABLET PO (08:04)
[2025-01-10] MEDS: FINASTERIDE 5 MG TABLET PO (08:04)
[2025-01-10] MEDS: ATORVASTATIN 20 MG TABLET PO (08:04)
[2025-01-10] MEDS: LORATADINE 10 MG TABLET PO (08:04)
[2025-01-10] MEDS: INSULIN GLARGINE (*BKC) 100 UNITS/ML 6 UNITS SUB-Q (08:13)
[2025-01-10] MEDS: ENOXAPARIN 30 MG/0.3 ML SYRINGE SUB-Q (08:15)
[2025-01-10] MEDS: SEVELAMER CARBONATE 0.8 GM ORAL POWDER PACKET 3.2 GM PO ×3 (08:19→16:50)
[2025-01-10] MEDS: HYDROcodone/acetaminophen (*CRX) 5-325 MG TABLET 1 TAB PO ×3 (08:19→20:29)
--- NOTE | 2025-01-10 08:50 | PC.NURSE ---
To dialysis via bed.
--- NOTE | 2025-01-10 10:47 | PM.DS ---
DS: Admitting Diagnosis Discharge Date 01/10/2025 Admitting Diagnosis Acute on chronic CHF with possible pneumonia DS: Discharge Diagnosis Discharge Diagnosis (1) Acute exacerbation of CHF (congestive heart failure): Qualifiers: Heart failure type: unspecified Qualified Code(s): I50.9 - Heart failure, unspecified Code(s): I50.9 - Heart failure, unspecified Status: Acute (2) Acute hypercapnic respiratory failure: Code(s): J96.02 - Acute respiratory failure with hypercapnia Status: Acute (3) Pneumonia: Code(s): J18.9 - Pneumonia, unspecified organism Status: Acute (4) CARITO (obstructive sleep apnea): Code(s): G47.33 - Obstructive sleep apnea (adult) (pediatric) Status: Acute (5) Chronic neck and back pain: Code(s): M54.2 - Cervicalgia; M54.9 - Dorsalgia, unspecified; G89.29 - Other chronic pain Status: Acute (6) Essential (primary) hypertension: Code(s): I10 - Essential (primary) hypertension Status: Chronic (7) Coronary artery disease: Qualifiers: Coronary Disease-Associated Artery/Lesion type: bypass graft [place] vs. transplanted heart: [place] heart Associated angina: without angina Qualified Code(s): I25.810 - Atherosclerosis of coronary artery bypass graft(s) without angina pectoris Code(s): I25.10 - Atherosclerotic heart disease of [place] coronary artery without angina pectoris Status: Acute (8) History of cardiac pacemaker: Onset Date: ~10/2024 Code(s): Z95.0 - Presence of cardiac pacemaker Status: Acute (9) Atrial fibrillation: Code(s): I48.91 - Unspecified atrial fibrillation Status: Chronic (10) Peripheral vascular disease: Onset Date: ~03/2023 Code(s): I73.9 - Peripheral vascular disease, unspecified Status: Acute (11) Type 2 diabetes mellitus, with long-term current use of insulin: Code(s): E11.9 - Type 2 diabetes mellitus without complications; Z79.4 - intermission coordinator (current) use of insulin Status: Acute (12) End-stage renal disease on hemodialysis: Code(s): N18.6 - End stage renal disease; Z99.2 - Dependence on renal dialysis Status: Acute DS: Summary Hospital Course Reason for hospitalization: Shortness of breath Hospital Course: Presented to emergency department from group home January 05 with shortness of breath. Found to be in acute hypoxic respiratory failure with bilateral infiltrates on chest x-ray. Treated with ceftriaxone and azithromycin IV. Also received dialysis therapy with removal of fluid. Improved dramatically over the ensuing 5 days. Completed course of antibiotics. Was transition from nasal cannula than BiPAP then room air. Was tolerating diet. Remained alert and oriented. Nephrology followed while inpatient and stressed restriction of 6 cups of fluid per day. Per care coordination he did have follow-up scheduled with [facility] with a Dr. Osorio. Pressure sore on right heel and anterior right leg remained stable. Time Spent with Patient Time attestation: Total time spent providing and/or coordinating discharge services: Exam Narrative: HEENT: PERRL, sclerae nonicteric, pharyngeal mucosa pink and intact NECK: No JVD CHEST: Clear to auscultation. Normal effort. HEART: NL S1/S2, regular, no murmur ABDOMEN: BS+, soft, nontender, no mass, no bruits EXTREMITIES: No cyanosis, trace pitting edema of legs, about 2 cm pressure sore right heel with eschar, tender; about 1/2 cm cluster of 3 vesicles right mid anterior griffin. NEUROLOGIC: CN intact and symmetric to inspection. MUSCULOSKELETAL: Tone and strength symmetric. PSYCH: Alert. Oriented to person, place, and time. DS: Data Data Completed and Pending Labs on day of discharge: Labs from last 24 hours 01/10/25 01/10/25 01/09/25 07:43 05:34 20:41 WBC 5.2 RBC 3.01 L Hgb 8.1 L Hct 27.9 L MCV 92.7 MCH 26.9 MCHC 29.0 L RDW 19.9 H Plt Count 194 MPV 10.3 Immature Gran % (Auto) 1.0 H Neut % (Auto) 64.7 Lymph % (Auto) 15.6 L Gordon % (Auto) 13.2 H Eos % (Auto) 4.4 Baso % (Auto) 1.1 Lymph # (Auto) 0.82 L [place] # (Auto) 0.7 H Eos # (Auto) 0.2 Baso # (Auto) 0.1 Abs Immat Gran (auto) 0.05 H Absolute Neuts (auto) 3.4 Absolute Nucleated RBC 0.020 H Band Neutrophils % Not Reportable Nucleated RBC % 0.4 H Platelet Estimate Adequate Anisocytosis 1+ Schistocytes None seen Sodium 133 L Potassium 5.5 H Chloride 94 L Carbon Dioxide 30 Anion Gap 9 BUN 52 H D Creatinine 6.62 H Estim Creat Clear Calc 10 Estimated GFR 8 L Glucose 127 H POC Capillary Glucose 127 H 169 H Calcium 10.0 Total Bilirubin 0.3 AST 15 L ALT 14 Alkaline Phosphatase 55 Total Protein 6.0 L Albumin 3.5 01/09/25 01/09/25 01/09/25 16:56 12:22 11:31 WBC RBC Hgb Hct MCV MCH MCHC RDW Plt Count MPV Immature Gran % (Auto) Neut % (Auto) Lymph % (Auto) [place] % (Auto) Eos % (Auto) Baso % (Auto) Lymph # (Auto) [place] # (Auto) Eos # (Auto) Baso # (Auto) Abs Immat Gran (auto) Absolute Neuts (auto) Absolute Nucleated RBC Band Neutrophils % Nucleated RBC % Platelet Estimate Anisocytosis Schistocytes Sodium Potassium Chloride Carbon Dioxide Anion Gap BUN Creatinine Estim Creat Clear Calc Estimated GFR Glucose POC Capillary Glucose 214 H 245 H 340 H Calcium Total Bilirubin AST ALT Alkaline Phosphatase Total Protein Albumin Preliminary micro results at discharge 01/05/25 13:50 Blood Culture - Preliminary Blood 01/05/25 13:46 Blood Culture - Preliminary Blood Discharge Plan Discharge Consulting providers: Brett Tang; Roque Chopra Discharging Clinician: Parveen Kern Patient Disposition: [place] [facility] Activity: no driving, as tolerated and other - see discharge instructions Diet: heart healthy, diabetic, renal, low sodium and other - see discharge instructions Wound Care Instructions: other - see discharge instructions Discharge Instructions: Per Dr. Tang, patient should limit fluid intake to no more than 6 cups of fluid a day (1450 mL). Keep pressure off right heel (keep right heel from contacting anything). Patient Instructions: Antibiotic Form, Pneumonia (GEN) Patient Language: Latvian Stand Alone Forms: General Discharge Information, Detention Discharge Discharge Medications: New acetaminophen 325 mg Tablet 650 mg PO Q4H PRN (Reason: Mild Pain (1-3) Or Fever) Qty: 60 0RF Retacrit 10,000 unit/mL Solution 10,000 unit IV PUSH TuThSa@1800 Qty: 10 0RF Continued carvedilol 25 mg tablet 25 mg PO BID aspirin 81 mg tablet,delayed release (DR/EC) 81 mg PO DAILY insulin lispro 100 unit/mL insulin pen 4 unit subcut .TIDAC loratadine [Claritin] 10 mg tablet 10 mg PO PRN insulin glargine [Lantus Solostar U-100 Insulin] 100 unit/mL (3 mL) insulin pen 6 unit subcut DAILY atorvastatin 20 mg tablet 20 mg PO DAILY tamsulosin 0.4 mg Capsule 0.4 mg PO QHS Qty: 30 0RF sevelamer carbonate 0.8 gram Powder In Packet 3.2 g PO TIDWM 30 Days Qty: 60 0RF furosemide 80 mg Tablet 80 mg PO BID Qty: 60 0RF finasteride [Proscar] 5 mg Tablet 5 mg PO QAM Qty: 30 0RF cinacalcet 90 mg PO DAILY Discontinued Trulicity 1.5 mg/0.5 mL pen injector 1.5 mg subcut WEEKLY Rx Instructions: takes on Tuesdays cyclobenzaprine 10 mg tablet 10 mg PO TID PRN (Reason: muscle spasm) Qty: 30 0RF amlodipine 10 mg tablet 10 mg PO DAILY Date of admission: 01/05/25 15:01 Primary Care Provider: Radha Carrion Admitting Provider: Venkata Turpin Attending physician on admission: Venkata Turpin Condition: Guarded Prognosis
--- NOTE | 2025-01-10 10:54 | P.PNNP_ITS ---
Progress Note: A&P Assessment and Plan (1) End-stage renal disease on hemodialysis: Code(s): N18.6 - End stage renal disease; Z99.2 - Dependence on renal dialysis Status: Acute Assessment and Plan: The patient has end-stage renal disease. This is due to diabetes and hypertension. Vascular disease is probably playing a role as well. Volume overload is improving. chest x-ray still shows mild vascular congestion. We are taking fluid off today. We will continue to challenge him as an outpatient. Okay to discharge today. (2) Hypertension: Code(s): I10 - Essential (primary) hypertension Status: Acute Assessment and Plan: the patient's blood pressure is good (3) Diabetes: Code(s): E11.9 - Type 2 diabetes mellitus without complications Status: Acute Assessment and Plan: Management per hospitalists (4) Anemia: Code(s): D64.9 - Anemia, unspecified Status: Chronic Assessment and Plan: hemoglobin is 8.1. Continue SRIKANTH (5) Acute exacerbation of CHF (congestive heart failure): Qualifiers: Heart failure type: unspecified Qualified Code(s): I50.9 - Heart failure, unspecified Code(s): I50.9 - Heart failure, unspecified Status: Acute Assessment and Plan: The patient has volume overload. he had an echocardiogram in October showing normal LV function but some diastolic dysfunction. He has right-sided problems because of his sleep apnea most likely. He has moderate tricuspid regurgitation is well , including pulmonary hypertension with a pressure of 49. Almost all the fluid is off Will continue to challenge the fluid in dialysis. The patient will continue to watch his fluid intake (6) Peripheral vascular disease: Onset Date: ~03/2023 Code(s): I73.9 - Peripheral vascular disease, unspecified Status: Acute Assessment and Plan: He had stents placed in his lower extremities. This has been doing okay apparently. (7) CARITO (obstructive sleep apnea): Code(s): G47.33 - Obstructive sleep apnea (adult) (pediatric) Status: Acute Assessment and Plan: he does not use a CPAP machine at home (8) Dyslipidemia: Code(s): E78.5 - Hyperlipidemia, unspecified Status: Acute Assessment and Plan: he is on atorvastatin (9) Altered mental status: Code(s): R41.82 - Altered mental status, unspecified Status: Acute Assessment and Plan: Resolved Subjective Date/time seen: 01/10/25 10:54 Interval history: patient feels good. He is eager to go home. He is on dialysis tolerating it well. His blood pressure is okay. We are going for 3 or more L today. He was seen at 10:30 a.m. The patient says he has been watching his fluid intake. Exam Narrative: WDWN in NAD skin no rash or subQ nodules head ncat lungs clear bilaterally cor reg no rub or gallop abd BS+ no tenderness ext 1+ bilateral edema. Right Heel ulcer has a bandage Objective Data Vital Signs Vital Signs: Vital Signs - 24 hr 01/09/25 11:05 01/09/25 13:24 01/09/25 13:24 Temperature Pulse Rate 72 79 77 Respiratory Rate 20 20 20 Blood Pressure 109/55 L Pulse Oximetry 99 94 Oxygen Delivery Room Air Oxygen Flow Rate Fraction of Inspired Oxygen 01/09/25 13:36 01/09/25 16:57 01/09/25 20:10 Temperature 98.2 F Pulse Rate 83 74 75 Respiratory Rate 20 16 20 Blood Pressure 142/65 H Pulse Oximetry 91 96 Oxygen Delivery Room Air Oxygen Flow Rate Fraction of Inspired Oxygen 21 01/09/25 20:11 01/09/25 20:47 01/09/25 21:02 Temperature 97.3 F L Pulse Rate 81 75 68 Respiratory Rate 20 20 Blood Pressure 118/51 L Pulse Oximetry 96 Oxygen Delivery Oxygen Flow Rate Fraction of Inspired Oxygen 01/09/25 21:12 01/10/25 01:27 01/10/25 01:38 Temperature Pulse Rate 68 68 68 Respiratory Rate 20 20 20 Blood Pressure Pulse Oximetry Oxygen Delivery Oxygen Flow Rate Fraction of Inspired Oxygen 01/10/25 05:50 01/10/25 08:24 01/10/25 08:33 Temperature 97.9 F Pulse Rate 70 80 81 Respiratory Rate 20 20 20 Blood Pressure 129/65 Pulse Oximetry 100 Oxygen Delivery Oxygen Flow Rate Fraction of Inspired Oxygen 01/10/25 08:57 01/10/25 08:57 01/10/25 09:08 Temperature 97.3 F L Pulse Rate 81 75 Respiratory Rate 17 Blood Pressure 138/74 142/71 H Pulse Oximetry 100 Oxygen Delivery Oxygen Flow Rate 0 Fraction of Inspired Oxygen 0 01/10/25 09:15 01/10/25 09:30 01/10/25 09:45 Temperature Pulse Rate 78 82 79 Respiratory Rate Blood Pressure 141/70 H 148/72 H 146/70 H Pulse Oximetry Oxygen Delivery Oxygen Flow Rate Fraction of Inspired Oxygen Intake/Output Intake/Output: Intake & Output 01/07/25 01/08/25 01/09/25 01/10/25 23:59 23:59 23:59 23:59 Intake Total 1100 1330 1327 300 Output Total 4000 3000 Balance -2900 -1670 1327 300 Meds/Results Medications: Active Medications Generic Name Dose Route Start Last Admin Trade Name Freq PRN Reason Stop Dose Admin Acetaminophen 650 mg 01/05/25 14:36 Acetaminophen 325 Mg Tablet PO Q4H PRN Mild Pain (1-3) or Fever Hydrocodone Bitart/Acetaminophen 1 tab 01/05/25 14:36 01/10/25 08:19 Hydrocodone/Acetaminophen (*Crx) 5-325 Mg Tablet PO 1 tab Q4H PRN Administration Pain Rated 4-6 Albuterol/Ipratropium 3 ml 01/05/25 20:00 01/10/25 08:21 Ipratropium 0.5 Mg/Albuterol Sulfate 2.5 Mg Ampul.Neb 3 Ml INHALATION 3 ml Q6HRT DAVID Administration Aspirin 81 mg 01/06/25 09:00 01/10/25 08:04 Aspirin 81 Mg Enteric Tablet PO 81 mg DAILY DAVID Administration Atorvastatin Calcium 20 mg 01/06/25 09:00 01/10/25 08:04 Atorvastatin 20 Mg Tablet PO 20 mg DAILY DAVID Administration Carvedilol 25 mg 01/05/25 21:00 01/09/25 20:11 Carvedilol 25 Mg Tablet PO 25 mg Q12HR DAVID Administration Dextrose 12.5 gm 01/05/25 17:06 Dextrose 50% 25 Gm/50 Ml Syringe IV PUSH PRN PRN Hypoglycemia Protocol Enoxaparin Sodium 30 mg 01/06/25 09:00 01/10/25 08:15 Enoxaparin 30 Mg/0.3 Ml Syringe SUB-Q 30 mg DAILY DAVID Administration Epoetin David-epbx 10,000 units 01/10/25 18:00 Epoetin David-Epbx 10,000 Units/Ml Vial IV PUSH TuThSa@1800 [facility] Finasteride 5 mg 01/06/25 09:00 01/10/25 08:04 Finasteride 5 Mg Tablet PO 5 mg QAM DAVID Administration Glucagon 1 mg 01/05/25 17:06 Glucagon For Inj 1 Mg Vial IM PRN PRN Hypoglycemia Protocol Glucose 15 gm 01/05/25 17:06 Glucose Oral Gel 15 Gm Of Glucse In 37.5 Gm Tube PO PRN PRN Hypoglycemia Protocol Dextrose 1,000 mls @ 100 mls/hr 01/05/25 17:06 Dextrose 5% 1,000 Ml IVPB PRN PRN Hypoglycemia Protocol Iron Sucrose 200 mg/ Sodium 110 mls @ 220 mls/hr 01/08/25 09:00 01/10/25 08:03 Chloride IVPB 01/12/25 09:29 220 mls/hr QAM DAVID Administration Ceftriaxone Sodium 1 gm in 50 mls @ 100 mls/hr 01/07/25 19:00 01/09/25 19:15 Rocephin 1 Gm/Ns 50 Ml IVPB Infused Q24H DAVID Infusion Azithromycin 500 mg in 250 mls @ 250 mls/hr 01/07/25 20:00 01/09/25 21:11 Zithromax IVPB Infused Q24H DAVID Infusion Albumin Human 50 mls @ 999 mls/hr 01/10/25 08:03 Albutein IVPB 01/11/25 08:02 Q10M PRN HYPOTENSION Insulin Aspart 4 - 8 units 01/06/25 08:00 01/10/25 08:02 Insulin Aspart (*Bkc) 100 Units/Ml SUB-Q Not Given TIDWM [facility] Protocol Insulin Aspart 2 - 4 units 01/05/25 21:00 01/10/25 00:08 Insulin Aspart (*Bkc) 100 Units/Ml SUB-Q Not Given HS [facility] Protocol Insulin Glargine 6 units 01/06/25 09:00 01/10/25 08:13 Insulin Glargine (*Bkc) 100 Units/Ml SUB-Q 6 units DAILY DAVID Administration Loratadine 10 mg 01/06/25 09:00 01/10/25 08:04 Loratadine 10 Mg Tablet PO 10 mg QAM DAVID Administration Ondansetron HCl 4 mg 01/05/25 16:47 Ondansetron Inj 4 Mg/2 Ml Vial IV PUSH Q6H PRN Nausea And Vomiting Sevelamer Carbonate 3.2 gm 01/06/25 08:00 01/10/25 08:19 Sevelamer Carbonate 0.8 Gm Oral Powder Packet PO 3.2 gm TIDWM DAVID Administration Tamsulosin HCl 0.4 mg 01/05/25 21:00 01/09/25 20:11 Tamsulosin Hcl 0.4 Mg Capsule PO 0.4 mg QHS DAVID Administration Radiology Results: ITS Impressions Head/Neck CTA 01/05/25 10:49 IMPRESSION: 1. CTA neck. Percent stenosis per NASCET criteria is 25% on the right and 10% on the left. 2. CTA of the head with no occlusion or significant stenosis. 3. 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 Chest X-Ray 01/09/25 16:23 IMPRESSION: Mild pulmonary vascular congestion, without focal infiltrate or effusion. Labs Labs: Laboratory Results - last 24 hr 01/09/25 01/09/25 01/09/25 11:31 12:22 16:56 WBC RBC Hgb Hct MCV MCH MCHC RDW Plt Count MPV Immature Gran % (Auto) Neut % (Auto) Lymph % (Auto) [place] % (Auto) Eos % (Auto) Baso % (Auto) Lymph # (Auto) [place] # (Auto) Eos # (Auto) Baso # (Auto) Abs Immat Gran (auto) Absolute Neuts (auto) Absolute Nucleated RBC Band Neutrophils % Nucleated RBC % Platelet Estimate Anisocytosis Schistocytes Sodium Potassium Chloride Carbon Dioxide Anion Gap BUN Creatinine Estim Creat Clear Calc Estimated GFR Glucose POC Capillary Glucose 340 H 245 H 214 H Calcium Total Bilirubin AST ALT Alkaline Phosphatase Total Protein Albumin 01/09/25 01/10/25 01/10/25 20:41 05:34 07:43 WBC 5.2 RBC 3.01 L Hgb 8.1 L Hct 27.9 L MCV 92.7 MCH 26.9 MCHC 29.0 L RDW 19.9 H Plt Count 194 MPV 10.3 Immature Gran % (Auto) 1.0 H Neut % (Auto) 64.7 Lymph % (Auto) 15.6 L [place] % (Auto) 13.2 H Eos % (Auto) 4.4 Baso % (Auto) 1.1 Lymph # (Auto) 0.82 L [place] # (Auto) 0.7 H Eos # (Auto) 0.2 Baso # (Auto) 0.1 Abs Immat Gran (auto) 0.05 H Absolute Neuts (auto) 3.4 Absolute Nucleated RBC 0.020 H Band Neutrophils % Not Reportable Nucleated RBC % 0.4 H Platelet Estimate Adequate Anisocytosis 1+ Schistocytes None seen Sodium 133 L Potassium 5.5 H Chloride 94 L Carbon Dioxide 30 Anion Gap 9 BUN 52 H D Creatinine 6.62 H Estim Creat Clear Calc 10 Estimated GFR 8 L Glucose 127 H POC Capillary Glucose 169 H 127 H Calcium 10.0 Total Bilirubin 0.3 AST 15 L ALT 14 Alkaline Phosphatase 55 Total Protein 6.0 L Albumin 3.5
[2025-01-10] MEDS: EPOETIN ALFA-EPBX 10,000 UNITS/ML VIAL 10000 UNITS IV PUSH (11:24)
--- NOTE | 2025-01-10 13:23 | PC.NURSE ---
Report called to dialysis nurse at 0840.
--- NOTE | 2025-01-10 13:26 | PC.NURSE ---
Returned from dialysis via bed.
[2025-01-10 13:34] LABS: Glucose Point of Care 148 mg/dl (65-105)
[2025-01-10] MEDS: carvediloL 25 MG TABLET PO ×2 (13:40→20:28)
[2025-01-10 16:56] LABS: Glucose Point of Care 145 mg/dl (65-105)
[2025-01-10] MEDS: TAMSULOSIN HCL 0.4 MG CAPSULE PO (20:29)
[2025-01-10 20:36] LABS: Glucose Point of Care 199 mg/dl (65-105)
== END 2025-01-10 21:12 | DRG 193 ==
LOC: ANHED 09:50 → ANHIMU 14:45 → ANH2MED 01-10 10:59 → ANHIMU 01-13 10:48
PROVIDERS: Internal Medicine Nephrology; Nurse Practitioner Acute Care; Admitting Provider Hospitalist; Emergency Provider Emergency Medicine; PCP Family Medicine; Visit Provider Internal Medicine
DX: J18.9 Pneumonia, unspecified organism (principal); J96.01 Acute respiratory failure with hypoxia; N18.6 End stage renal disease; J96.02 Acute respiratory failure with hypercapnia; I25.810 Atherosclerosis of coronary artery bypass graft(s) without angina pectoris; G93.40 Encephalopathy, unspecified; I13.2 Hypertensive heart and chronic kidney disease with heart failure and with stage 5 chronic kidney disease, or end stage renal disease; J44.0 Chronic obstructive pulmonary disease with (acute) lower respiratory infection; L89.619 Pressure ulcer of right heel, unspecified stage; D63.1 Anemia in chronic kidney disease; E11.22 Type 2 diabetes mellitus with diabetic chronic kidney disease; E11.65 Type 2 diabetes mellitus with hyperglycemia; E11.51 Type 2 diabetes mellitus with diabetic peripheral angiopathy without gangrene; E78.5 Hyperlipidemia, unspecified; E55.9 Vitamin D deficiency, unspecified; F03.90 Unspecified dementia, unspecified severity, without behavioral disturbance, psychotic disturbance, mood disturbance, and anxiety; G47.33 Obstructive sleep apnea (adult) (pediatric); G89.29 Other chronic pain; G40.909 Epilepsy, unspecified, not intractable, without status epilepticus; I65.02 Occlusion and stenosis of left vertebral artery; I07.1 Rheumatic tricuspid insufficiency; I27.20 Pulmonary hypertension, unspecified; I50.9 Heart failure, unspecified; I48.91 Unspecified atrial fibrillation; M54.9 Dorsalgia, unspecified; M54.2 Cervicalgia; N40.0 Benign prostatic hyperplasia without lower urinary tract symptoms; R29.6 Repeated falls; Z95.0 Presence of cardiac pacemaker; Z79.4 Long term (current) use of insulin; Z79.82 Long term (current) use of aspirin; Z20.822 Contact with and (suspected) exposure to COVID-19; Z79.85 Long-term (current) use of injectable non-insulin antidiabetic drugs; Z95.1 Presence of aortocoronary bypass graft; Z90.49 Acquired absence of other specified parts of digestive tract; Z87.891 Personal history of nicotine dependence; Z99.2 Dependence on renal dialysis; Z95.828 Presence of other vascular implants and grafts
CPT/HCPCS: 36415; 36600; 70496; 70498; 71045; 80053; 82140; 82375; 82728; 82805; 82948; 83050; 83540; 83550; 83605; 83735; 84100; 84443; 84484; 85018; 85025; 85046; 85055; 85610; 85730; 87040; 87340; 87637; 87641; 94002; 94003; 94640; 95816; 96365; 96368; 96375; 99291; A9270; G0257; J0456; J0696; J1644; J1650; J1756; J1815; J7030; Q5105; Q9967

== ENCOUNTER 2025-02-15 18:57 | Inpatient (IN) | payer MEDICARE, OTHER, SELFPAY ==
--- NOTE | ~2025-02-15 | CT_ITS ---
EXAMINATION: CT cervical spine wo con DATE: 02/21/2025 14:53 INDICATION: Upper extremity weakness TECHNIQUE: Computed tomography (CT) of the cervical spine was performed without intravenous contrast. Automated exposure control and iterative reconstruction technique were employed. The dose-length pro duct was 498.48 mGy-cm. COMPARISON: CT C-spine 12/30/2024; x-ray C-spine 11/03/2024 and 09/03/2024. FINDINGS: Vertebral Body Alignment: Reversed lordosis centered at C3-4. Multilevel stable minimal grade 1 anter olistheses. Craniocervical and atlantoaxial alignment: Moderate degenerative change. Alignment intact. Osseous structures/fracture: Moderate chronic height loss at C3 and C5, with severe chronic anterior wedge deformity at C4. Multiple periarticular erosions and erosions about the disc spaces, best seen at the C5-6 disc space. Sclerosis of the C4 vertebral body. No evidence of acute fracture. Chronic a ppearing spinous process fracture at T1. 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 Cervical soft tissues: There is mild thickening of the prevertebral soft tissues spanning C3-C5, most pronounced at the C5-6 disc level. The retropharyngeal fat plane is preserved. Degenerative changes: Multilevel disc space narrowing and facet arthropathy throughout the cervical s pine. No severe central canal or neural foraminal narrowing. Moderate neural foraminal narrowing on t he left at C4-5 and on the right at C2-3. IMPRESSION: No acute fracture or traumatic malalignment in the cervical spine. Moderate neural foraminal narrowing on the left at C4-5 and on the right at C2-3. Erosive changes at the C3-4 and C4-5 disc spaces, also seen to a lesser extent in multiple facet join ts. Mild prevertebral soft tissue thickening, most pronounced at the C5-6 disc level, probably repres enting inflammatory panus. These changes appear chronic and largely stable, and may be secondary to i nflammatory or crystalline arthropathy. Osteomyelitis/discitis considered less likely. Chronic height loss at C3 and C4 and chronic anterior wedge deformity at C5. Sclerosis of the C4 vertebral body probably related to degenerative change/arthropathy, noting that s clerotic metastases could appear similarly. Reviewed, dictated and finalized at location K. IMPRESSION: No acute fracture or traumatic malalignment in the cervical spine. Moderate neural foraminal narrowing on the left at C4-5 and on the right at C2- 3. Erosive changes at the C3-4 and C4-5 disc spaces, also seen to a lesser extent in multiple facet joints. Mild prevertebral soft tissue thickening, most pronou nced at the C5-6 disc level, probably representing inflammatory panus. These ch anges appear chronic and largely stable, and may be secondary to inflammatory o r crystalline arthropathy. Osteomyelitis/discitis considered less likely. Chronic height loss at C3 and C4 and chronic anterior wedge deformity at C5. Sclerosis of the C4 vertebral body probably related to degenerative change/arth ropathy, noting that sclerotic metastases could appear similarly.
--- NOTE | ~2025-02-15 | XR_ITS ---
XR chest 1V portable Ordering provider: Martina Booth MD History: 79 years Male with . Hypoxia . Comparison: February 15, 2025 FINDINGS: MEDIASTINUM: The cardiac silhouette is not enlarged. Postoperative changes in the mediastinum. Conges tive serina. LUNGS: No pneumothorax. Bilateral alveolar and interstitial opacification suggestive of pulmonary emily ma versus pneumonia. Minimal opacification in the left lung base suggestive of pneumonia. OTHER: No free air under the diaphragm. IMPRESSION: Cardiomegaly with cardiac decompensation and pulmonary edema. Superimposed pneumonia is highly sugges tive. Clinical correlation advised. Reviewed, dictated and finalized at location A. IMPRESSION: Cardiomegaly with cardiac decompensation and pulmonary edema. Superimposed pneu monia is highly suggestive. Clinical correlation advised.
--- NOTE | ~2025-02-15 | XR_ITS ---
Portable chest x-ray Comparison: 02/21/2025 Clinical History: CHF Findings: There is probable central congestive change and minimal bibasilar pulmonary edema. No pleu ral effusion. Cardiomediastinal silhouette is stable. Bones and soft tissues are unremarkable. Impression: Probable minimal bibasilar pulmonary edema. Stable mild cardiomegaly with upper quadrant. Reviewed, dictated and finalized at location . Impression: Probable minimal bibasilar pulmonary edema. Stable mild cardiomegaly with upper quadrant.
--- NOTE | ~2025-02-15 | XR_ITS ---
XR chest 1V portable Ordering provider: Sam Orozco MD History: 79 years Male with . WEAKNESS, BLURRED VISION . Comparison: January 09, 2025 FINDINGS: MEDIASTINUM: The cardiac silhouette is slightly enlarged. Postoperative changes in the mediastinum. C ongestive serina. LUNGS: No pneumothorax. Bibasilar opacification suggestive of atelectasis versus pneumonia with left pleural effusion. Minimal bilateral interstitial opacification. OTHER: No free air under the diaphragm. IMPRESSION: Cardiomegaly with highly suggestive cardiac decompensation and pulmonary edema. Bibasilar opacification suggestive of atelectasis versus pneumonia with left pleural effusion. Reviewed, dictated and finalized at location A. IMPRESSION: Cardiomegaly with highly suggestive cardiac decompensation and pulmonary edema. Bibasilar opacification suggestive of atelectasis versus pneumonia with left pl eural effusion.
--- NOTE | ~2025-02-15 | XR_ITS ---
EXAMINATION: XR chest 1V portable Exam Date/Time: 02/21/2025 15:00 CDT HISTORY: Hypoxia and pneumonia Comparison: None. RESULT: Lines, tubes, and devices: Loop recorder. Mediastinal surgical clips. Multiple fractured sternotomy wires remain in stable position. Right subclavian stent. Lungs and pleura: Interval improving diffuse reticular opacities. Improving aeration of the left ochoa g base No focal consolidation or pneumothorax. Cardiomediastinal silhouette: Stable. Other: No acute osseous or upper abdominal finding. IMPRESSION: Improving edema and atelectasis. Reviewed, dictated and finalized at location K.
--- NOTE | ~2025-02-15 | CT_ITS ---
EXAMINATION: CT brain wo con DATE: 02/22/2025 14:55 INDICATION: altered mental status . TECHNIQUE: Computed tomography (CT) of the head was performed without intravenous contrast. The mA wa s adjusted according to patient size. Iterative reconstruction technique was employed. The dose-lengt h product was 605.33 mGy-cm. COMPARISON: 02/15/2025, 01/05/2025. FINDINGS: No acute intracranial hemorrhage or extra-axial fluid collection. No hydrocephalus, mass, or herniation. No acute ischemic infarct. Unremarkable dural venous sinus attenuation. No acute osseous abnormality. Retention cyst/polyp with some mucosal thickening in the left maxillary sinus, opacification of the r ight maxillary sinus and several right middle ethmoid air cells, hyperdense material in the left maxi llary sinus lumen. The remaining aerated spaces are clear. Moderate atrophy and chronic white matter change. Atherosclerotic intracranial calcification. Bilater al lens replacements. 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 IMPRESSION: No acute intracranial process. 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 Reviewed, dictated and finalized at location K.
--- NOTE | ~2025-02-15 | CT_ITS ---
CT brain wo con Ordering provider: Sam Orozco MD History: 79 years Male with . WEAKNESS, BLURRED VISION . Comparison: January 05, 2025 Technique: CT of the head without contrast. Radiation reduction technique utilized.The dose-length pr oduct was 605.33 mGy-cm. FINDINGS: BRAIN PARENCHYMA AND CSF SPACES: Hypodensity seen in the left insula which is not demonstrated in the previous study. Acute infarct is not excluded. MRI evaluation advised. Mild leukoaraiosis and diffus e cortical atrophy. Mild atheromatous disease. No midline shift, mass effect or hemorrhage. The brai n parenchyma and CSF spaces are otherwise normal. VISUALIZED PARANASAL SINUSES: Right maxillary sinusitis with hyperdense material which may indicate f ungal infection versus inspissated mucus. Left maxillary sinus disease. Bilateral ethmoid sinus disea se. Mild left nasal septal deviation. Otherwise, Well aerated. MASTOIDS: Well aerated. BONES: The bones appear intact. SOFT TISSUES: Visualized nasopharynx is normal. Superficial soft tissues are normal. IMPRESSION: No acute intracranial findings. Reviewed, dictated and finalized at location A.
[2025-02-15 18:55] VITALS: BP 151/71; PULSE 78; RESP 16; TEMP 36.5
--- NOTE | 2025-02-15 19:07 | ECG_ITS ---
Test Date: 2025-02-15 19:53:09 Measurements Intervals [place] Rate: 78 P: 0 WA: 0 QRS: 223 QRSD: 162 T: -31 QT: 476 QTc: 543 Interpretive Statements ATRIAL FIBRILLATION RIGHT BUNDLE BRANCH BLOCK LEFT POSTERIOR FASCICULAR BLOCK BASELINE WANDER- II, III, AVF ABNORMAL ECG Compared to ECG 12/20/2024 08:12:42 HEART RATE HAS DECREASED Electronically Signed On 02-16-2025 06:17:25 CDT by Chiki Parra D.O.
[2025-02-15 19:15] VITALS: BP 147/88; PULSE 78; RESP 18; O2SAT 91
[2025-02-15 19:23] LABS: Glucose Point of Care 128 mg/dl (65-105)
--- OUTSIDE RECORDS SUMMARY | 2025-02-15 19:40 | XMS_ITS | Clinical Summary ---
Author Organization [email or web address] Address [address] [place] [address] Care Team Providers Care Accounting Office Manager Name Role Phone Mariza Carrion MD Primary Care Provider Source Comments [facility],non-owned Affiliates and Associated Physician Practices is amultiple site organization consisting of ambulatory clinics and hospital sitesin [place], [place], [place] and [place]. This disclosure is being madepursuant to the Care Everywhere program and may not contain all information available regarding this patient. Last updated 18.[facility] Allergies No known active allergies Medications * Be aware that medications may not be up to date on this document. Alwaysverify current medications with the patient. ASPIRIN 81 PO 81 mg 4 Active blood glucose test strip Use to test glucose 5 times daily 8 Active insulin glargine (LANTUS) pen Inject 4 (four) Units to 10 (ten) Units subcutaneously once daily Sliding Scale 8 Active insulin lispro (HUMALOG) 100 UNIT/ML pen 5 (five) Units to 10 (ten) Units 3 times daily before meals 8 Active loratadine (Claritin) 5 MG/5ML syrup take 10 milliliter by oral route take as needed 5 Active dulaglutide (Trulicity) 1.5 MG/0.5ML injection Inject 1.5 (one and one-half) mg subcutaneously every 7 days 8 Active QC ALCOHOL SWABS 70 % Use pads 5 times daily 8 Active ebgiy-8-ksfa ethyl esters (LOVAZA) 1 g capsule Take 1 (one) capsule by mouth 2 times daily 0 Active BD Pen Needle Ruma 2nd Gen 32G X 4 MM MISC 2 Active atorvastatin (Lipitor) 20 MG tablet Take 1 (one) tablet by mouth once daily 3 Active sevelamer (Renagel) 800 MG tablet TAKE 4 TABLETS BY MOUTH THREE TIMES DAILY WITH MEALS AND 2 TABLETS TWICE DAILY WITH SNACKS 3 Active acetaminophen (Tylenol) 325 MG tablet Take 2 (two) tablets by mouth every 6 hours as needed for Pain or Fever Maximum allowable Acetaminophen amount = 4 Grams (4000 mg) / 24 hours. 3 Active amLODIPine (Norvasc) 10 MG tablet Take 1 (one) tablet by mouth once daily 3 Active docusate sodium (Colace) 100 MG capsule Take 1 (one) capsule by mouth every 12 hours 4 Active carvedilol (Coreg) 25 MG tablet 4 Active finasteride (Proscar) 5 MG tablet 3 Active pantoprazole EC (Protonix) 40 MG tablet 4 Active cyclobenzaprin e (Flexeril) 5 MG tablet Take 1 (one) tablet by mouth 3 times daily as needed FOR MUSCLE SPASM 4 Active HYDROcodone-ac etaminophen ([place]) 5-325 MG tablet 4 Active Lokelma 10 g packet MIX ONE PACKET WITH WATER AND DRINK BY MOUTH ONCE FOR 1 DOSE 4 Active tamsulosin (Flomax) 0.4 MG capsuleIndicat ions:Urinary retention Take 1 (one) capsule by mouth once daily 90 capsule 3 5 Active Active Problems Problem Noted Date Diagnosed Date PVD (peripheral vascular disease) 04/11/2023 Cardiac arrest 04/11/2023 Acute hypoxemic respiratory failure 04/11/2023 Encounter regarding vascular access for dialysis for end-stage renal disease 01/24/2023 ESRD (end stage renal disease) 07/09/2018 Complication of arteriovenous dialysis fistula Resolved Problems Problem Noted Date Diagnosed Date Resolved Date Pain 04/05/2023 04/11/2023 Family History Medical History Relation Name Comments [...] and heating? Not hard at all 04/06/2023 [facility] - Occupational Stress [...] place to sleep or slept in a alf (including now)? No 04/06/2023 Sex and Gender Information Value Date Recorded Sex Assigned at Not on file Legal Sex Male 9:30 AM CDT Gender Identity Not on file Sexual Orientation Not on file Last Filed Vital Signs Vital Sign Reading Time Taken Comments Blood Pressure 147/70 09/22/2024 8:55 AM [employer] DEVELOPER Pulse 68 09/22/2024 8:55 AM [employer] DEVELOPER Temperature 36.2 C (97.2 F) 09/22/2024 7:24 AM [employer] DEVELOPER Respiratory Rate 15 09/22/2024 8:55 AM [employer] DEVELOPER Oxygen Saturation 92% 09/22/2024 8:55 AM [employer] DEVELOPER Inhaled Oxygen Concentration 25% 04/11/2023 7 :26 PM CDT Weight 87.9 kg (193 lb 12.6 oz) 09/22/2024 7:24 AM [employer] DEVELOPER Height 170.2 cm (5' 7 ) 09/22/2024 7:24 AM [employer] DEVELOPER Body Mass Index 30.35 09/22/2024 7:24 AM [employer] BPM DEVELOPER Plan of Treatment Upcoming Encounters Date Type Department Care Team (Late st Contact Info) Description 03/23/2025 8:00 AM CDT Appointment [facility] [address] [address] [place] [address] [place] [address] [address] [place] [address] Health Maintenance Due Date Last Done Comments MEDICARE AWV 12 MONTHS 1945 DTAP/TDAP/TD VACCINES (1 - Tdap) 1966 PNEUMOCOCCAL VACCINE 50+ (1 of 1 - PCV) 1997 ZOSTER VACCINE (1 of 2) 1997 Respiratory Syncytial Virus (RSV) Vaccine Pt: or over 60 yrs (1 - 1-dose 75+ series) 2022 COVID-19 VACCINE (1 - 2023-2 5 season) 2024 DEPRESSION SCREENING 10/22/2024 INFLUENZA VACCINE (Season Ended) 2025 08/18/2013, 08/26/2012, 08/05/2008 HEPATITIS C SCREENING Completed 04/07/2023 HEPATITIS B [...] this topic Medical Devices Implanted Type Area Agents' Records Clerk Device Identifier Shelf Expiration Date Model / Serial / Lot Mynxgrip Vascular Closure Device Implanted:Qty: 1 on 04/11/2023 by Matt Beyer DO at [facility] Right: Groin 01/19/2025 [id number] / [id number] / [id number] 5tch Cv 6x1cm Photofix Decellularized Implanted:Qty: 1 on 04/20/2023 by Matt Beyer DO at [facility] N/A: Other (See Descriptio n) [employer] 01/28/2024 [id number] / / [id number] Description:LEFT FEMORAL ART BARI Procedures Procedure Name [...] infection. Marito Rios MD LAB - CHEMISTRY ORDERABLES Jeaneth mari Result [facility] [address] [place] [address] from Last 3 Months or Most Recently Relevant to Health Maintenance Insurance MEDICARE MEDICARE [facility] Advance Directives Documents on File Type Date Recorded Patient Belt Line Feeder Expl anation Adv Directive/Living Will/POA 05/02/2023 3:49 PM * Full Code (Latest Code Status on File) Date Activated Date Inactivated Comments 04/06/2023 9:49 AM 05/01/2023 4:44 PM Care Teams Accounting Office Manager Relationship Specialty Start Date End Date Mariza Carrion MD [address] [place] [address] PCP - General Family Medicine 08/26/18
--- OUTSIDE RECORDS SUMMARY | 2025-02-15 19:40 | XMS_ITS ---
Author Organization [facility] Address [facility] [place] [address] Care Team Providers Care Aeronautical Engineering Professor Name Role Phone Efren Hoyos MD Unavailable Dank Hicks MD Unavailable [phone] Mariza Carrion MD Primary Care Provider Dialysis Access Sites Type Status Location Placement Date Removal Da te AV fistula Active Left Upper Arm - Anterior AV fistula Inactive 10/23/2024 Procedures Procedure Name Priority Date/Time Associated Diagnosis Comments DEVICE CHECK - IN OFFICE Routine 01/21/2025 9:26 AM CDT Cardiac pacemaker in situ Asystole (HCC) Syncope and collapse Symptomatic bradycardia CARDIOLOGY DOCUMENT SCAN Routine 12/10/2024 10:59 AM PLOW HOLDER POCT GLUCOSE Routine 11/24/2024 10:01 AM PLOW HOLDER Type 2 diabetes mellitus with hyperglycemia, with long-term current use of insulin (CMS/HCC) POCT HEMOGLOBIN A1C Routine 11/24/2024 10:01 AM PLOW HOLDER Type 2 diabetes mellitus with hyperglycemia, with long-term current use of insulin (CMS/[facility]) EGFR Routine 10/25/2024 5:48 AM PLOW HOLDER HEPATITIS PANEL, ACUTE Routine 10/23/2024 2:45 PM PLOW HOLDER DIABETES EYE EXAM Routine 08/13/2024 9:40 AM CDT ALBUMIN CREATININE RATIO, URINE Routine 03/10/2024 8:46 AM CDT Type 2 diabetes mellitus with hyperglycemia, with long-term current use of insulin ([facility]) LIPID PANEL Routine 03/03/2024 9:29 AM CDT Type 2 diabetes mellitus with hyperglycemia, with long-term current use of insulin ([facility]) Hyperlipidemia associated with type 2 diabetes mellitus ([facility]) CT ABDOMEN PELVIS WO CONTRAST Schedule Routine, Read Routine (OP Routine) 12/05/2021 11:53 AM PLOW HOLDER End stage renal disease (HCC) from Last [...] hyperglycemia, with long-term current use of insulin ([facility]) Use to test glucose 5 times daily 450 each 2 04/03/20 18 Active lancets (freestyle) 28 gauge miscIndications:T ype 2 diabetes mellitus with hyperglycemia, with long-term current use of insulin ([facility]) Use to test glucose 5 times daily [...] with long-term current use of insulin (HCC) Change sensor every 14 days 9 kit [...] hyperglycemia, with long-term current use of insulin ([facility]) Use pads 5 times daily 200 [...] hyperglycemia, with long-term current use of insulin ([facility]) Inject 0.5ML(1.5MG total) under the skin every [...] 12/09/2019 Assessment & Plan (09/03/2023 9:28 AM PLOW HOLDER): Chronic problem. [facility] [place]: //Saturdays. LUE fistula. Assessment & Plan (03/05/2023 9:59 AM CDT): Chronic problem. [facility] in [place]: //Saturdays. LUE fistula. ESRD on dialysis 05/22/2019 Hyperlipidemia associated with type 2 diabetes fouzia victoria 05/22/2019 Assessment & Plan (11/24/2024 10:10 AM PLOW HOLDER): Chronic problem. Controlled on current Atorvastatin 20mg. Last lipid panel: 03/03/24 LDL=33, TG=75. Assessment & Plan (03/03/2024 8:45 AM CDT): Chronic problem. Controlled on current Atorvastatin 20mg. Last lipid panel: 03/05/23 LDL=57, UZ=183. Will update labs today. Does not mychart. Verified phone #/address to contact re: results. Assessment & Plan (09/03/2023 9:28 AM PLOW HOLDER): Chronic problem. Controlled on current Atorvastatin 20mg. Last lipid panel: 03/05/23 LDL=57, WP=465. Assessment & Plan (03/05/2023 9:53 AM CDT): Chronic problem. Controlled on current Atorvastatin 20mg. Last lipid panel: 12/05/21 LDL=36, ZT=094. Will update labs today. Verified phone #/address to contact re: results. Assessment & Plan (11/02/2022 2:47 PM PLOW HOLDER): Chronic, well controlled Low fat Low cholesterol [...] Lipitor Assessment & Plan (09/07/2020 2:26 PM PLOW HOLDER): Goal of treatment , LDL cholesterol less [...] panel Assessment & Plan (12/09/2019 2:03 PM PLOW HOLDER): Very high TG Add Vascepa Assessment & [...] statin therapy Coronary artery disease invo lving [place] coronary artery of [place] heart without angina pectoris 10/04/2017 Hx of CABG 10/04/2017 Class 2 severe obesity due t o excess calories with serious comorbidity and body mass index (BMI) of 38.0 to 38.9 in adult 05/22/2017 Assessment & Plan (10/24/2018 12:58 PM PLOW HOLDER): Making progress with diet efforts. Continue Assessment & Plan (02/08/2018 11:01 AM CDT): Importance of following diet and exercising discussed. Hypertension associated with diabetes 05/22/2017 Assessment & Plan (11/24/2024 10:11 AM PLOW HOLDER): Chronic problem. Controlled on current losartan 100mg daily, amlodipine 10mg daily Assessment & Plan (03/03/2024 8:45 AM CDT): Chronic problem. BP elevated upon arrival. Controlled on current Carvedilol 25mg bid, losartan 100mg daily. No changes at this time. Will update labs today. Does not mychart. Verified phone #/address to contact re: results. Assessment & Plan (09/03/2023 9:28 AM PLOW HOLDER): Chronic problem. BP elevated upon arrival. Controlled [...] renal Assessment & Plan (10/24/2018 12:57 PM PLOW HOLDER): Controlled. Continue current medication plan and follow up with cardiology Assessment & Plan (06/18/2018 2:30 PM CDT): BP controlled on current medication plan. Continue follow up with nephrology Assessment & Plan (02/08/2018 11:00 AM CDT): Continue same medication Assessment & Plan (12/11/2017 10:24 AM PLOW HOLDER): Goal blood pressure is less than 140/85 [...] mellitus Assessment & Plan (11/24/2024 10:16 AM PLOW HOLDER): Chronic problem, controlled on current regimen. A1c [...] daily for skin breakdown and infection (sees advertising executive regularly). Assessment & Plan (03/03/2024 9:19 AM [...] daily for skin breakdown and infection (sees advertising executive regularly). Assessment & Plan (09/03/2023 9:27 AM PLOW HOLDER): Chronic problem, controlled on current regimen. A1c [...] daily for skin breakdown and infection (sees advertising executive regularly). Assessment & Plan (03/05/2023 10:13 AM CDT): Chronic problem, controlled on current regimen. Current medications: Trulicity 1.5mg weekly Lantus 6 units every morning Humalog 4 units before meals For sugars over 160: take 6 units For sugars over 200: take 8 units Seen by Retina Keeling every 4-5 mos; letter sent to get [...] daily for skin breakdown and infection (sees advertising executive regularly). Will update labs today. Verified phone #/address to contact re: results. Assessment & Plan (11/02/2022 2:43 PM PLOW HOLDER): Well controlled, with risk of hypoglycemia Insuli [...] Ross Assessment & Plan (09/07/2020 2:26 PM PLOW HOLDER): Hba1c was Lab Results Component Value Date [...] Trulicity. Assessment & Plan (12/09/2019 2:03 PM PLOW HOLDER): Your Hba1c today was: Lab Results Component [...] hypoglycemia. Assessment & Plan (10/24/2018 1:00 PM PLOW HOLDER): Stable BG pattern 100-140 reported since last adjustment to plan. No change today. BG goals reviewed. Advised to lower Lantus by 2 units if FBG are < 100 x 2 days/wk. For planned activity, reduce Humalog dose by 1/2 at preceding meal. Assessment & Plan (09/19/2018 11:11 AM PLOW HOLDER): Your Hba1c today was: Lab Results Component [...] time. Assessment & Plan (12/11/2017 10:47 AM PLOW HOLDER): Hba1c was .5.4 Today, 1800 calorie, consistent [...] drink = 0.6 oz pur e alcohol) [facility] Utilities Answer Date Recorded In the past 12 months has [employer], gas, oil, or water [employer] threatened to shut off services in your [...] often do you attend chur ch or episcopalian services? Never 10/23/2024 Do you belong to any clubs o r organizations such as christianity groups, unions, fraternal or athletic groups, or [...] any time in the past 12 m [facility], were you homeless or living in [...] on file Legal Sex Male 7:27 PM PLOW HOLDER Gender Identity Not on file Sexual Orientation Not on file Last Filed Vital Signs Vital Sign Reading Time Taken Comments Blood Pressure 102/58 11/24/2024 9:58 AM PLOW HOLDER Pulse 75 11/24/2024 9:58 AM PLOW HOLDER Temperature 36.3 C (97.3 F) 10/25/2024 2:15 PM PLOW HOLDER Respiratory Rate 20 11/24/2024 9:58 AM PLOW HOLDER Oxygen Saturation 100% 10/25/2024 1:15 PM PLOW HOLDER Inhaled Oxygen Concentration - - Weight 91.3 kg (201 lb 4.5 oz) 10/22/2024 8:29 P M PLOW HOLDER Height 170.2 cm (5' 7.01 ) 11/24/2024 9:58 AM CS T Body Mass Index 31.52 10/22/2024 8:29 PM PLOW HOLDER Results * DEVICE CHECK - IN OFFICE (01/21/2025 9:26 AM CDT) Anatomical Region Laterality Modality Other Narrative 01/29/2025 8:25 AM CDT Medtronic Micra AV2 Pacemaker. Dx; Symptomatic Bradycardia, Sinus Arrest, Syncope. DOI 10/24/2024-Ramadan. Patricia. Carelink remote. Supervising MD: Dr Giordano. Interrogation of VDD Pacemaker demonstrated appropriate device function. Battery function-3.14V, >10.0 years remaining to ANA LAURA. Electrode impedance, capture threshold, and measured r-wave are stable and appropriate. Presenting rhythm: VS (SR) 78 bpm. Vpaced-3.3%. Vsensed only 96.3%. Medications; ASA 81 mg. No programming changes made to device settings. See scanned report. Office pacemaker f/u 6-8 weeks. Carelink remote f/u explained to patients brother and daughter. Written carelink instructions provided. Carelink scheduled 04/22/2025. Yamel Cesar RN us Dank Hicks MD [facility] CARDIAC SERVICES PROC EDURES Final Result * Cardiology Document Scan (12/10/2024 10:59 AM PLOW HOLDER) Anatomical Region Laterality Modality Other us Curt Grady MD CV CARDIAC SERVICES PRO CEDURES Final Result * POCT hemoglobin A1c (11/24/2024 10:01 AM PLOW HOLDER) Hemoglobin A1C, POC 4.9 4.0 - 5.6 % Blood 11/24/2024 10:0 1 AM PLOW HOLDER us Bertha Pinto NP POINT OF CARE TEST ORDERA BLES Final Result * (ABNORMAL) POCT glucose (11/24/2024 10:01 AM PLOW HOLDER) Glucose Blood, POC 131 mg/dL Blood 11/24/2024 10:0 1 AM PLOW HOLDER us Bertha Pinto REGISTER IN CHANCERY POINT OF CARE TEST ORDERA BLES Final Result * (ABNORMAL) eGFR (10/25/2024 5:48 AM PLOW HOLDER) eGFR 9(L) >=60 mL/min/1. 73 m2 Comment: [...] last reviewed 2021. Blood 10/25/2024 5:48 AM PLOW HOLDER 10/25/2024 6:03 AM PLOW HOLDER Raisa Scherer REGISTER IN CHANCERY LAB BLOOD ORDERABLES Jeaneth l Result Performing Organization Address [facility] Co de Phone Number [facility] [address] [employer] [address] * Hepatitis panel, acute Blood (10/23/2024 2:45 PM PLOW HOLDER) Hep A IgM Nonreactive Nonreactive Comment: Interpretive Data: If Hep A IgM Ab is reported as Equivocal, a new sample should be drawn in two weeks for testing. Current interpretive data was last revised on 20. Hep B core IgM Nonreactive Nonreactive [facility] Comment: Interpretive Data If HepB Core IgM Ab is reported as Equivocal, a new sample should be drawn in two weeks for testing. Current interpretive data was last revised on 20. Hep C Ab Nonreactive Nonreactive [facility] Comment: Interpretive Data Nonreactive: Antibodies [...] last revised on 2020. HepBsAg Nonreactive Nonreactive [facility] Blood 10/23/2024 2:45 PM PLOW HOLDER 10/23/2024 2:46 PM PLOW HOLDER Sherrill Christianson MD LAB MICROBIOLOGY - GENERAL ORDERABLES Final Result Performing Organization Address [facility] Co de Phone Number NIDIA [address] [address] [place] [address] * (ABNORMAL) DIABETES EYE EXAM (08/13/2024 9:40 AM CDT) Historical Provider [facility] Edited Result - Final * (ABNORMAL) Albumin Creatinine Ratio, Urine (03/10/2024 8:46 AM CDT) Albumin Ur 3,169.5 mg/L Comment: Interpretive Data No reference range established. Current interpretive data was last revised 2019. Creatinine Ur 47.7 mg/dL [facility] Comment: Interpretive Data No reference range established. Current interpretive data was last revised 2019. Albumin Creatinine Ratio, Ur 6,645(H) 1 - 29 mg/g [facility] Urine 03/10/2024 8:46 AM CDT 03/11/2024 9:11 AM CDT Bertha Pinto NP LAB URINE ORDERABLES Jeaneth l Result [facility] [address] Department [place] [address] * (ABNORMAL) Lipid panel (03/03/2024 9:29 AM [...] BLOOD ORDERABLES Jeaneth mari Result [facility] [place] [address] Department [place] [address] * CT Abdomen Pelvis WO Contrast (12/05/2021 11:53 AM PLOW HOLDER) Anatomical Region Laterality Modality Body N/A Computed Tomogra phy 12/05/2021 12:0 4 PM PLOW HOLDER Impressions 12/05/2021 12:04 PM PLOW HOLDER Bone windows show no suspicious lytic or blastic lesions. IMPRESSION: 1. 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 2. 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 Electronically signed by: Ryan Cameron M.D. Narrative 12/05/2021 12:04 PM PLOW HOLDER EXAMINATION: Computed tomography of the abdomen/pelvis without [...] adeniform shape. There is atrophy of both [place] kidneys. Adjacent fat stranding is likely related [...] adeniform shape. There is atrophy of both [place] kidneys. Adjacent fat stranding is likely related [...]
--- OUTSIDE RECORDS SUMMARY | 2025-02-15 19:40 | XMS_ITS | Encounter Summary ---
Author Organization [facility] Address [address] [place] [address] Care Team Providers Care Tool Polishing Machine Operator Name Role Phone Mariza Carrion MD Primary Care Provider Encounter Details Date Type Department Care Team (Late Contact Info) Description 06/03/2018 [facility] Outpatient Visit [facility] [address] [place] [address] [place] [address] [facility] [address] [place] [id number] Social History Tobacco Use Types Packs/Day [...] CDT Appointment [facility] [address] [facility], [address] [place] [address] [place] [address] [facility] [address] [place] [address] documented as of this encounter Visit Diagnoses Not on filedocumented in this encounter Care Teams Tool Polishing Machine Operator Relationship Specialty Start Date End Date Mariza Carrion MD [address] [place] [address] PCP - General Family Medicine 08/26/18 documented as of this encounter
--- OUTSIDE RECORDS SUMMARY | 2025-02-15 19:40 | XMS_ITS | Clinical Summary ---
Author Organization [facility] Address [address] [place] [address] Phone Care Team Providers Care Celebrity Manager Name Role Phone Mariza Carrion MD Primary Care Provider Allergies No known active allergies Medications insulin lispro (HUMALOG) 100 UNIT/ML injection as dir 0 11/12/2017 Active Ferrous Sulfate 27 MG tablet 1 daily 0 11/28/2017 Active fenofibrate (TRICOR) 145 MG tablet 1 daily 0 11/28/2017 Active aspirin (ASPIR-LOW) 81 MG EC tablet 1 daily 0 11/12/2017 Active latanoprost (XALATAN) 0.005 % ophthalmic solution as dir 0 11/28/2017 Active metOLazone (ZAROXOLYN) 5 MG tablet 1 daily 4 09/04/2018 Active Cholecalciferol (VITAMIN D3) 5000 units capsule 1 daily 0 11/28/2017 Active Dulaglutide (TRULICITY) 0.75 MG/0.5ML solution pen-injector 0.75 daily 0 11/12/2017 Activ e pantoprazole (PROTONIX) 40 MG injection 1 bid 4 09/04/2018 Active carvedilol (COREG) 25 MG tablet 1 bid 0 11/12/2017 Active clopidogrel (PLAVIX) 75 MG tablet 1 dakly 0 11/12/2017 Active oseltamivir (TAMIFLU) 30 MG capsule 1 daily for 5 days 0 11/28/2017 Active insulin glargine (LANTUS) 100 UNIT/ML injection as dir 0 11/12/2017 Active ergocalciferol (VITAMIN D-2) 75808 units capsule Take 1 capsule (50,000 Units total) by mouth 2 (two) times a week. 28 capsule 3 03/27/2019 Active hydrALAZINE (APRESOLINE) 100 MG tablet TAKE 1 TABLET TWICE A DAY 180 tablet 4 04/30/2019 Active aspirin 81 MG chewable tablet one p.o. qd 05/23/2012 A ctive ergocalciferol (VITAMIN D-2) 88930 units capsule one p.o. capsule once a month 0 11/11/2013 Active amLODIPine-odell zepril (LOTREL) 10-40 MG per capsule one p.o. [...] (05/23/2019): Converted unresolved ICD9, potential mismatch. Immunizations Immunization Administration Dates Next Due Pneumococcal Conjugate 13-Valent [...] at Not on file Legal Sex Male 8:53 AM MST Gender Identity Not on file Sexual Orientation [...] and Medium Risk (2 of 3 - PPSV23) 2013 2012 Influenza Vaccine (Season Ended) 2025 Insurance MEDICARE Care Teams Celebrity Manager Relationship Specialty Start Date End Date Mariza Carrion MD [address] [place] [address] PCP - General Internal Medicine 01/06/19
--- OUTSIDE RECORDS SUMMARY | 2025-02-15 19:40 | XMS_ITS | CONTINUITY OF CARE DOCUMENT ---
Author Name milly atkins Address Unknown Organization [facility] Address [address] [facility] [address] [place] [address] Phone [phone] Care Team Providers Care Lead Quality Control Technician Name Role Phone Kostas Pelaez MD Unavailable [phone] Kostas Pelaez MD Unavailable [phone] PROBLEMS Condition Status Date Provider Notes S/P Single chamb PCM Micra - Medtronic ( MRI safe) active Tonie Garay INSURANCE PROVIDERS Payer name Policy type / Coverage type [place] red democrat ID [employer] [place] [id number] [place] MEDICARE PART B Medicare [id number]
--- OUTSIDE RECORDS SUMMARY | 2025-02-15 19:40 | XMS_ITS | Referral Summary ---
Author Organization [facility] Address [address] [place] [phone] Care Team Providers Care Mine Exploration Engineer Name Role Phone Efren Hoyos MD Unavailable Dank Hicks MD Unavailable [phone] Mariza Carrion MD Primary Care Provider Encounters Date Type Department Care Team Description 01/21/2025 9:30 AM CDT Ancillary Procedure [facility] Cardiology [address] [place] [address] [address] [place] [phone] Cardiac pacemaker in situ; Asystole (HCC); Syncope and collapse; Symptomatic bradycardia 01/19/2025 Telephone [facility] Cardiology [address] [place] [address] [place] [phone] Dank Hicks MD 01/05/2025 Telephone [facility] Diabetes and Endocrinology [address] [place] [phone] Bertha Pinto NP Release of Information 12/30/2024 Telephone [facility] Cardiology [address] [place] [address] [place] [phone] Dank Hicks MD 12/22/2024 Orders Only [facility] Cardiology [address] [place] [address] [address] [place] [phone] Curt Grady MD 11/25/2024 Telephone [facility] Diabetes and Endocrinology [address] [place] [phone] Bertha Pinto NP [facility] 11/25/2024 Telephone [facility] Diabetes and Endocrinology [address] [place] [phone] Bertha Pinto NP Med Management (Humalog ) 11/24/2024 11:00 AM PLASTIC WELDER Office Visit [facility] Diabetes and Endocrinology [address] [place] [phone] Bertha Pinto NP Type 2 diabetes mellitus with hyperglycemia, with long-term current use of insulin ([facility]) (Primary Dx); Hypertension associated with diabetes ([facility]); Hyperlipidemia associated with type 2 diabetes mellitus ([facility]) from Last 3 Months Allergies No known [...] of insulin ([facility]) Use to test glucose 5 times daily 450 each 2 04/03/20 18 Active lancets (freestyle) 28 gauge miscIndications:T ype 2 diabetes mellitus with hyperglycemia, with long-term current use of insulin ([facility]) Use to test glucose 5 times daily 500 each 3 04/03/20 18 Active glucagon (glucagon) 1 mg kit Use as directed for low blood sugar. 1 kit 11 09/19/20 18 Active atorvastatin (LIPITOR) 20 mg tablet TAKE 1 TABLET DAILY 60 tablet 05/20/20 Active flash glucose sensor (FreeStyle Ross 2 Sensor) kitIndications:Ty pe 2 diabetes mellitus with hyperglycemia, with long-term current use of insulin ([facility]) Change sensor every 14 days 9 kit [...] of insulin ([facility]) Use pads 5 times daily 200 each [...] of insulin ([facility]) Inject 0.5ML(1.5MG total) under the skin every [...] of insulin ([facility]) Use to inject insulin 4x/day 350 each [...] 12/09/2019 Assessment & Plan (09/03/2023 9:28 AM PLASTIC WELDER): Chronic problem. [facility] [place]: //Saturdays. LUE fistula. Assessment & Plan (03/05/2023 9:59 AM CDT): Chronic problem. [facility] [place]: //Saturdays. LUE fistula. ESRD on dialysis 05/22/2019 Hyperlipidemia associated with type 2 diabetes fouzia victoria 05/22/2019 Assessment & Plan (11/24/2024 10:10 AM PLASTIC WELDER): Chronic problem. Controlled on current Atorvastatin 20mg. Last lipid panel: 03/03/24 LDL=33, TG=75. Assessment & Plan (03/03/2024 8:45 AM CDT): Chronic problem. Controlled on current Atorvastatin 20mg. Last lipid panel: 03/05/23 LDL=57, EB=462. Will update labs today. Does not mychart. Verified phone #/address to contact re: results. Assessment & Plan (09/03/2023 9:28 AM PLASTIC WELDER): Chronic problem. Controlled on current Atorvastatin 20mg. Last lipid panel: 03/05/23 LDL=57, ND=783. Assessment & Plan (03/05/2023 9:53 AM CDT): Chronic problem. Controlled on current Atorvastatin 20mg. Last lipid panel: 12/05/21 LDL=36, EP=066. Will update labs today. Verified phone #/address to contact re: results. 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 Continue Assessment & Plan (02/08/2018 11:01 AM CDT): Importance of following diet and exercising discussed. Hypertension associated with diabetes 05/22/2017 Assessment & Plan (11/24/2024 10:11 AM PLASTIC WELDER): Chronic problem. Controlled on current losartan 100mg daily, amlodipine 10mg daily Assessment & Plan (03/03/2024 8:45 AM CDT): Chronic problem. BP elevated upon arrival. Controlled on current Carvedilol 25mg bid, losartan 100mg daily. No changes at this time. Will update labs today. Does not mychart. Verified phone #/address to contact re: results. Assessment & Plan (09/03/2023 9:28 AM PLASTIC WELDER): Chronic problem. BP elevated upon arrival. Controlled [...] renal Assessment & Plan (10/24/2018 12:57 PM PLASTIC WELDER): Controlled. Continue current medication plan and follow up with cardiology Assessment & Plan (06/18/2018 2:30 PM CDT): BP controlled on current medication plan. Continue follow up with nephrology Assessment & Plan (02/08/2018 11:00 AM CDT): Continue same medication Assessment & Plan (12/11/2017 10:24 AM PLASTIC WELDER): Goal blood pressure is less than 140/85 [...] mellitus Assessment & Plan (11/24/2024 10:16 AM PLASTIC WELDER): Chronic problem, controlled on current regimen. A1c [...] daily for skin breakdown and infection (sees director of services regularly). Assessment & Plan (03/03/2024 9:19 AM [...] daily for skin breakdown and infection (sees director of services regularly). Assessment & Plan (09/03/2023 9:27 AM PLASTIC WELDER): Chronic problem, controlled on current regimen. A1c [...] daily for skin breakdown and infection (sees director of services regularly). Assessment & Plan (03/05/2023 10:13 AM CDT): Chronic problem, controlled on current regimen. Current medications: Trulicity 1.5mg weekly Lantus 6 units every morning Humalog 4 units before meals For sugars over 160: take 6 units For sugars over 200: take 8 units Seen by [facility] every 4-5 mos; letter sent to get [...] daily for skin breakdown and infection (sees director of services regularly). Will update labs today. Verified phone #/address to contact re: results. Assessment & Plan (11/02/2022 2:43 PM PLASTIC WELDER): Well controlled, with risk of hypoglycemia Insuli [...] Ross Assessment & Plan (09/07/2020 2:26 PM PLASTIC WELDER): Hba1c was Lab Results Component Value Date [...] Trulicity. Assessment & Plan (12/09/2019 2:03 PM PLASTIC WELDER): Your Hba1c today was: Lab Results Component Value Date HGBA1C 9.3 12/09/2019 meaning a 3 month average sugar of : 224 Your goal hba1c is under 7.0 to prevent intermediate project manager diabetes complications ( eye , kidney and [...] hypoglycemia. Assessment & Plan (10/24/2018 1:00 PM PLASTIC WELDER): Stable BG pattern 100-140 reported since last adjustment to plan. No change today. BG goals reviewed. Advised to lower Lantus by 2 units if FBG are < 100 x 2 days/wk. For planned activity, reduce Humalog dose by 1/2 at preceding meal. Assessment & Plan (09/19/2018 11:11 AM PLASTIC WELDER): Your Hba1c today was: Lab Results Component [...] time. Assessment & Plan (12/11/2017 10:47 AM PLASTIC WELDER): Hba1c was .5.4 Today, 1800 calorie, consistent [...] 05/22/2019 Assessment & Plan (09/19/2018 11:20 AM PLASTIC WELDER): Prevention and treatment of hypoglycemia were discussed [...] therapy Assessment & Plan (10/24/2018 12:57 PM PLASTIC WELDER): Check lipid panel Assessment & Plan (06/18/2018 2:31 PM CDT): Continue statin therapy Assessment & Plan (02/08/2018 11:00 AM CDT): Continue atorvastatin Assessment & Plan (12/11/2017 10:45 AM PLASTIC WELDER): Goal of treatment , LDL cholesterol less [...] 0.6 oz pur e alcohol) [facility] Utilities Answer Date Recorded In the past 12 months has th e electric, gas, oil, or water company threatened [...] often do you attend chur ch or holiness services? Never 10/23/2024 Do you belong to any clubs o r organizations such as gnosticism groups, unions, fraternal or athletic groups, or [...] time in the past [address] [facility], were you homeless or living in a longterm (including now)? No 10/23/2024 Personal Safety Answer Date Recorded Have you ever been in or are you currently in a harmful physical or emotional relationship or is someone making you feel afraid or unsafe? Denies 10/22/2024 Sex and Gender Information Value Date Recorded Sex Assigned at Not on file Legal Sex Male 7:27 PM PLASTIC WELDER Gender Identity Not on file Sexual Orientation Not on file Last Filed Vital Signs Vital Sign Reading Time Taken Comments Blood Pressure 102/58 11/24/2024 9:58 AM PLASTIC WELDER Pulse 75 11/24/2024 9:58 AM PLASTIC WELDER Temperature 36.3 C (97.3 F) 10/25/2024 2:15 PM PLASTIC WELDER Respiratory Rate 20 11/24/2024 9:58 AM PLASTIC WELDER Oxygen Saturation 100% 10/25/2024 1:15 PM PLASTIC WELDER Inhaled Oxygen Concentration - - Weight 91.3 kg (201 lb 4.5 oz) 10/22/2024 8:29 P M PLASTIC WELDER Height 170.2 cm (5' 7.01 ) 11/24/2024 9:58 AM CS T Body Mass Index 31.52 10/22/2024 8:29 PM PLASTIC WELDER Plan of Treatment Not on file Medical Devices Implanted Type Area Venue Manager Device Identifier Shelf Expiration Date Model / Serial / Lot [employer] Micra 2 Av Synchronous Leadless Ventricular Pacemaker [id number] - [id number] - [id number] Implanted:Qty: 1 on 10/24/2024 by Darien Jamil Jr., MD at [facility] [employer] 02/16/2026 [id number] / [id number] / Procedures Procedure Name Priority Date/Time Associated Diagnosis Comments DEVICE CHECK - IN OFFICE Routine 01/21/2025 9:26 AM CDT Cardiac pacemaker in situ Asystole (HCC) Syncope and collapse Symptomatic bradycardia CARDIOLOGY DOCUMENT SCAN Routine 12/10/2024 10:59 AM PLASTIC WELDER POCT GLUCOSE Routine 11/24/2024 10:01 AM PLASTIC WELDER Type 2 diabetes mellitus with hyperglycemia, with long-term current use of insulin (CMS/HCC) POCT HEMOGLOBIN A1C Routine 11/24/2024 10:01 AM PLASTIC WELDER Type 2 diabetes mellitus with hyperglycemia, with long-term current use of insulin (CMS/HCC) EGFR Routine 10/25/2024 5:48 AM PLASTIC WELDER HEPATITIS PANEL, ACUTE Routine 10/23/2024 2:45 PM PLASTIC WELDER HM DIABETES EYE EXAM Routine 08/13/2024 9:40 [...] Read Routine (OP Routine) 12/05/2021 11:53 AM PLASTIC WELDER End stage renal disease (HCC) from Last 3 Months or Most Recently Relevant to Health Maintenance Results * DEVICE CHECK - IN OFFICE (01/21/2025 9:26 AM CDT) Anatomical Region Laterality Modality Other Narrative 01/29/2025 8:25 AM CDT Medtronic Micra AV2 Pacemaker. Dx; Symptomatic Bradycardia, Sinus Arrest, Syncope. DOI 10/24/2024-Loulou. [facility]. [facility] remote. Supervising MD: Dr Giordano. Interrogation of [...] carelink instructions provided. Carelink scheduled 04/22/2025. Yamel Cesar, JIMMY us Dank Hicks MD CV CARDIAC SERVICES PROC EDURES Final Result * Cardiology Document Scan (12/10/2024 10:59 AM PLASTIC WELDER) Anatomical Region Laterality Modality Other us Curt Grady MD CV CARDIAC SERVICES PRO CEDURES Final Result * POCT hemoglobin A1c (11/24/2024 10:01 AM PLASTIC WELDER) [facility] Hemoglobin A1C, POC 4.9 4.0 - 5.6 % Blood 11/24/2024 10:0 1 AM PLASTIC WELDER us Bertha Pinto NP POINT OF CARE TEST ORDERA BLES Final Result * (ABNORMAL) POCT glucose (11/24/2024 10:01 AM PLASTIC WELDER) [facility] Glucose Blood, POC 131 mg/dL Blood 11/24/2024 10:0 1 AM PLASTIC WELDER us Bertha Pinto NP POINT OF CARE TEST ORDERA BLES Final Result * (ABNORMAL) eGFR (10/25/2024 5:48 AM PLASTIC WELDER) Pathologist [facility] eGFR 9(L) >=60 mL/min/1. 73 m2 Comment: [...] last reviewed 2021. Blood 10/25/2024 5:48 AM PLASTIC WELDER 10/25/2024 6:03 AM PLASTIC WELDER us Raisa Scherer NP LAB BLOOD ORDERABLES Jeaneth l Result Performing Organization Address City/[facility]/ZIP Co de Phone Number [facility] [address] Department [place] [address] * Hepatitis panel, acute Blood (10/23/2024 2:45 PM PLASTIC WELDER) Hep A IgM Nonreactive Nonreactive Comment: Interpretive Data: If Hep A IgM Ab is reported as Equivocal, a new sample should be drawn in two weeks for testing. Current interpretive data was last revised on 20. Hep B core IgM Nonreactive Nonreactive [facility] Comment: Interpretive Data If HepB Core IgM Ab is reported as Equivocal, a new sample should be drawn in two weeks for testing. Current interpretive data was last revised on 20. Hep C Ab Nonreactive Nonreactive [facility] Comment: Interpretive Data Nonreactive: Antibodies to [...] last revised on 2020. HepBsAg Nonreactive Nonreactive [facility] Blood 10/23/2024 2:45 PM PLASTIC WELDER 10/23/2024 2:46 PM PLASTIC WELDER us Sherrill Christianson MD LAB MICROBIOLOGY - GENERAL ORDERABLES Final Result [facility] [id number] [place] [address] * (ABNORMAL) HM DIABETES EYE EXAM (08/13/2024 9:40 AM CDT) Historical Provider [facility] Edited Result - Final * (ABNORMAL) Albumin Creatinine Ratio, Urine (03/10/2024 8:46 AM CDT) Albumin Ur 3,169.5 mg/L Comment: Interpretive Data No reference range established. Current interpretive data was last revised 2019. Creatinine Ur 47.7 mg/dL [facility] Comment: Interpretive Data No reference range established. Current interpretive data was last revised 2019. Albumin Creatinine Ratio, Ur 6,645(H) 1 - 29 mg/g [facility] Urine 03/10/2024 8:46 AM CDT 03/11/2024 9:11 AM CDT Bertha Pinto GEAR SHAPER SET UP OPERATOR LAB URINE ORDERABLES Jeaneth l Result Performing Organization Address [facility] Co de Phone Number [facility] [address] [place] [address] * (ABNORMAL) Lipid panel (03/03/2024 9:29 AM [...] revised on 2018. Chol/HDL ratio 2 [facility] Blood 03/03/2024 9:29 AM CDT 03/03/2024 4:40 PM CDT us Bertha Pinto NP LAB BLOOD ORDERABLES Jeaneth l Result [facility] [address] Department [place] [address] * CT Abdomen Pelvis WO Contrast (12/05/2021 11:53 AM PLASTIC WELDER) Anatomical Region Laterality Modality Body N/A Computed Tomogra phy 12/05/2021 12:0 4 PM PLASTIC WELDER Impressions 12/05/2021 12:04 PM PLASTIC WELDER Bone windows show no suspicious lytic or blastic lesions. IMPRESSION: 1. 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 2. 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 Electronically signed by: Ryan Cameron M.D. Narrative 12/05/2021 12:04 PM PLASTIC WELDER EXAMINATION: Computed tomography of the abdomen/pelvis without [...] adeniform shape. There is atrophy of both mechoopda kidneys. Adjacent fat stranding is likely related [...] adeniform shape. There is atrophy of both mechoopda kidneys. Adjacent fat stranding is likely related [...] LIFE MEDICARE MEDICARE FOR LIFE Care Teams Mine Exploration Engineer Relationship Specialty Start Date End Date Mariza Carrion MD [address] [facility] [address] [place] [address] PCP - General Family Practice 03/05/23 Efren Hoyos MD Referring Physician Ophthalmology 06/16/19 Dank Hicks MD [address] [facility] [address] [place] [address] Consulting Physician Cardiology 10/11/21
--- OUTSIDE RECORDS SUMMARY | 2025-02-15 19:40 | XMS_ITS | Clinical Summary ---
Author Organization [facility] Facility Address [address] [address] Care Team Providers Care Latin Dancer Name Role Phone Murali Dawkins MD Primary Care Provider Social History Tobacco Use Types Packs/Day Years Used Date Smoking Tobacco: Never Assessed Sex and Gender Information Value Date Recorded Sex Assigned at Not on file Legal Sex Male 12:14 PM EST Gender Identity Not on file Sexual Orientation Not on file Plan of Treatment Health Maintenance Due Date Last Done Comments Pneumococcal Vaccine: 50+ Ye ars (1 of 2 - PCV) 1964 Influenza Vaccine (Season Ended) 2025 Hepatitis B Vaccine Aged Out No longe r eligible based on patient's age to complete this topic Insurance Medicare [facility] Care Teams Latin Dancer Relationship Specialty Start Date End Date Murali Dawkins MD [address] [place] [address] PCP - General Family Medicine 10/28/24
--- OUTSIDE RECORDS SUMMARY | 2025-02-15 19:40 | XMS_ITS | Clinical Summary ---
Author Organization [facility] Address [address] [place] [phone] Care Team Providers Care Field Contact Person Name Role Phone Efren Hoyos MD Unavailable Dank Hicks MD Unavailable [phone] Mariza Carrion MD Primary Care Provider Allergies [...] with long-term current use of insulin ([facility]) Change sensor every 14 [...] with long-term current use of insulin ([facility]) Use pads 5 times [...] 12/09/2019 Assessment & Plan (09/03/2023 9:28 AM [facility]): Chronic problem. [facility] [place]: //Saturdays. LUE fistula. Assessment & Plan (03/05/2023 9:59 AM CDT): Chronic problem. [facility] [place]: //Saturdays. LUE fistula. ESRD on dialysis 05/22/2019 Hyperlipidemia associated with type 2 diabetes fouzia victoria 05/22/2019 Assessment & Plan (11/24/2024 10:10 AM [facility]): Chronic problem. Controlled on current Atorvastatin 20mg. Last lipid panel: 03/03/24 LDL=33, TG=75. Assessment & Plan (03/03/2024 8:45 AM CDT): Chronic problem. Controlled on current Atorvastatin 20mg. Last lipid panel: 03/05/23 LDL=57, KF=294. Will update labs today. Does not mychart. Verified phone #/address to contact re: results. Assessment & Plan (09/03/2023 9:28 AM [facility]): Chronic problem. Controlled on current Atorvastatin 20mg. Last lipid panel: 03/05/23 LDL=57, CC=850. Assessment & Plan (03/05/2023 9:53 AM CDT): Chronic problem. Controlled on current Atorvastatin 20mg. Last lipid panel: 12/05/21 LDL=36, HB=982. Will update labs today. Verified phone #/address to contact re: results. Assessment & Plan (11/02/2022 2:47 PM [facility]): Chronic, well controlled Low fat Low cholesterol [...] Lipitor Assessment & Plan (09/07/2020 2:26 PM [facility]): Goal of treatment , LDL cholesterol less [...] panel Assessment & Plan (12/09/2019 2:03 PM [facility]): Very high TG Add Vascepa Assessment & [...] statin therapy Coronary artery disease invo lving chinik coronary artery of chinik heart without angina pectoris 10/04/2017 Hx of CABG 10/04/2017 Class 2 severe obesity due t o excess calories with serious comorbidity and body mass index (BMI) of 38.0 to 38.9 in adult 05/22/2017 Assessment & Plan (10/24/2018 12:58 PM [facility]): Making progress with diet efforts. Continue Assessment & Plan (02/08/2018 11:01 AM CDT): Importance of following diet and exercising discussed. Hypertension associated with diabetes 05/22/2017 Assessment & Plan (11/24/2024 10:11 AM [facility]): Chronic problem. Controlled on current losartan 100mg daily, amlodipine 10mg daily Assessment & Plan (03/03/2024 8:45 AM CDT): Chronic problem. BP elevated upon arrival. Controlled on current Carvedilol 25mg bid, losartan 100mg daily. No changes at this time. Will update labs today. Does not mychart. Verified phone #/address to contact re: results. Assessment & Plan (09/03/2023 9:28 AM [facility]): Chronic problem. BP elevated upon arrival. Controlled [...] renal Assessment & Plan (10/24/2018 12:57 PM [facility]): Controlled. Continue current medication plan and follow up with cardiology Assessment & Plan (06/18/2018 2:30 PM CDT): BP controlled on current medication plan. Continue follow up with nephrology Assessment & Plan (02/08/2018 11:00 AM CDT): Continue same medication Assessment & Plan (12/11/2017 10:24 AM [facility]): Goal blood pressure is less than 140/85 [...] mellitus Assessment & Plan (11/24/2024 10:16 AM [facility]): Chronic problem, controlled on current regimen. 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 Assessment & Plan (03/03/2024 9:19 AM [...] daily for skin breakdown and infection (sees pump erector helper regularly). Assessment & Plan (09/03/2023 9:27 AM [facility]): Chronic problem, controlled on current regimen. 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 Assessment & Plan (03/05/2023 10:13 AM CDT): Chronic problem, controlled on current regimen. Current medications: Trulicity 1.5mg weekly Lantus 6 units every morning Humalog 4 units before meals For sugars over 160: take 6 units For sugars over 200: take 8 units Seen by [facility] every 4-5 mos; letter sent to get [...] daily for skin breakdown and infection (sees pump erector helper regularly). Will update labs today. Verified phone #/address to contact re: results. Assessment & Plan (11/02/2022 2:43 PM [facility]): Well controlled, with risk of hypoglycemia Insuli [...] Ross Assessment & Plan (09/07/2020 2:26 PM [facility]): Hba1c was Lab Results Component Value Date [...] Trulicity. 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 Assessment & Plan (10/24/2018 1:00 PM [facility]): Stable BG pattern 100-140 reported since last adjustment to plan. No change today. BG goals reviewed. Advised to lower Lantus by 2 units if FBG are < 100 x 2 days/wk. For planned activity, reduce Humalog dose by 1/2 at preceding meal. Assessment & Plan (09/19/2018 11:11 AM [facility]): Your Hba1c today was: Lab Results Component [...] time. Assessment & Plan (12/11/2017 10:47 AM [facility]): Hba1c was .5.4 Today, 1800 calorie, consistent [...] 05/22/2019 Assessment & Plan (09/19/2018 11:20 AM [facility]): Prevention and treatment of hypoglycemia were discussed [...] therapy Assessment & Plan (10/24/2018 12:57 PM [facility]): Check lipid panel Assessment & Plan (06/18/2018 2:31 PM CDT): Continue statin therapy Assessment & Plan (02/08/2018 11:00 AM CDT): Continue atorvastatin Assessment & Plan (12/11/2017 10:45 AM [facility]): Goal of treatment , LDL cholesterol less [...] Description 01/21/2025 9:30 AM CDT Ancillary Procedure [facility] Cardiology [address] [place] [address] [place] [phone] Cardiac pacemaker in situ; Asystole (HCC); Syncope and collapse; Symptomatic bradycardia 01/19/2025 Telephone [facility] Cardiology [address] [place] [address] [place] [phone] Dank Hicks MD 01/05/2025 Telephone [facility] Diabetes and Endocrinology [address] [place] [phone] Bertha Pinto NP Release of Information 12/30/2024 Telephone [facility] Cardiology [address] [place] [address] [place] [phone] Dank Hicks MD 12/22/2024 Orders Only [facility] Cardiology [address] [place] [phone] Curt Grady MD 11/25/2024 Telephone [facility] Diabetes and Endocrinology [address] [place] [phone] Bertha Pinto NP [employer] 11/25/2024 Telephone [facility] Diabetes and Endocrinology [address] [place] [phone] Bertha Pinto NP Med Management (Humalog ) 11/24/2024 11:00 AM [facility] Office Visit [facility] Diabetes and Endocrinology [address] [place] [phone] Bertha Pinto NP Type 2 diabetes mellitus with hyperglycemia, with long-term current use of insulin ([facility]/HCC) (Primary Dx); Hypertension associated with diabetes (HCC); Hyperlipidemia associated with type 2 diabetes mellitus ([facility]) from Last 3 Months Surgical History Surgery [...] drink = 0.6 oz pur e alcohol) [facility] Utilities Answer Date Recorded In the past 12 months has e [employer], gas, oil, or water [employer] threatened to shut off services in your [...] any clubs o r organizations such as pentecostalism groups, unions, fraternal or athletic groups, or [...] on file Legal Sex Male 7:27 PM [facility] Gender Identity Not on file Sexual Orientation Not on file Obstetrics History Last Filed Vital Signs Vital Sign Reading Time Taken Comments Blood Pressure 102/58 11/24/2024 9:58 AM [facility] Pulse 75 11/24/2024 9:58 AM [facility] Temperature 36.3 C (97.3 F) 10/25/2024 2:15 PM [facility] Respiratory Rate 20 11/24/2024 9:58 AM [facility] Oxygen Saturation 100% 10/25/2024 1:15 PM [facility] Inhaled Oxygen Concentration - - Weight 91.3 kg (201 lb 4.5 oz) 10/22/2024 8:29 P M [facility] Height 170.2 cm (5' 7.01 ) 11/24/2024 9:58 AM CS T Body Mass Index 31.52 10/22/2024 8:29 PM [facility] Plan of Treatment Health Maintenance Due Date Last Done Comments DTaP/Tdap/Td Vaccine (1 - Tdap) 1956 Zoster Vaccine (1 of 2) 1997 Well Visit 65+ 2012 Depression Screening 11/02/2023 11/02/2022, 02/03/2021, 09/07/2020, Additional history exists Foot Exam 03/03/2025 03/03/2024, 02/19, 11/02/2022, Additional history exists Lipid Panel 03/03/2025 03/03/2024, 02/19, 12/05/2021, Additional history exists Albumin Creatinine Ratio, Urine 03/10/2025 , 03/05/2023 Hemoglobin A1C 05/24/2025 11/24/2024, 02/19, 09/03/2023, Additional history exists Influenza Vaccine (Season Ended) 2025 Dilated Eye Exam 08/13/2025 08/13/2024, , 01/03/2023, Additional history exists Fall Risk Assessment 10/25/2025 10/25/2024 eGFR 10/25/2025 10/25/2024, 12/2024, 10/23/2024, Additional history exists Abdominal Aortic Aneurysm (A AA) Screen Completed 12/05/2021 Pneumococcal vaccine 65+ Completed 09/27/2023, 04/22 Hepatitis B Screening Completed 10/23/2024 Hepatitis C Screening Completed 10/23/2024, 022 Medical Devices Implanted Type Area Shop Technician Device Identifier Shelf Expiration Date Model / Serial / Lot [employer] Micra 2 Av Synchronous Leadless Ventricular Pacemaker [id number] - [id number] - [id number] Implanted:Qty: 1 on 10/24/2024 by Darien Jamil Jr., MD at [facility] [employer] 02/16/2026 [id number] / [id number] / Procedures Procedure Name Priority Date/Time Associated Diagnosis Comments DEVICE CHECK - IN OFFICE Routine 01/21/2025 9:26 AM CDT Cardiac pacemaker in situ Asystole (HCC) Syncope and collapse Symptomatic bradycardia CARDIOLOGY DOCUMENT SCAN Routine 12/10/2024 10:59 AM [facility] POCT GLUCOSE Routine 11/24/2024 10:01 AM [facility] Type 2 diabetes mellitus with hyperglycemia, with long-term current use of insulin (CMS/HCC) POCT HEMOGLOBIN A1C Routine 11/24/2024 10:01 AM [facility] Type 2 diabetes mellitus with hyperglycemia, with long-term current use of insulin (CMS/HCC) EGFR Routine 10/25/2024 5:48 AM [facility] HEPATITIS PANEL, ACUTE Routine 10/23/2024 2:45 PM [facility] HM DIABETES EYE EXAM Routine 08/13/2024 9:40 [...] Read Routine (OP Routine) 12/05/2021 11:53 AM [facility] End stage renal disease (HCC) from Last [...] * Cardiology Document Scan (12/10/2024 10:59 AM [facility]) Anatomical Region Laterality Modality Other us Curt Grady MD CV CARDIAC SERVICES PRO CEDURES Final Result * POCT hemoglobin A1c (11/24/2024 10:01 AM [facility]) Hemoglobin A1C, POC 4.9 4.0 - 5.6 % Blood 11/24/2024 10:0 1 AM [facility] us Berthageno Pinto CHILLER OPERATOR POINT OF CARE TEST ORDERA BLES Final Result * (ABNORMAL) POCT glucose (11/24/2024 10:01 AM [facility]) Glucose Blood, POC 131 mg/dL Blood 11/24/2024 10:0 1 AM [facility] [employer] us Bertha Pinto CHILLER OPERATOR POINT OF CARE TEST ORDERA BLES Final Result * (ABNORMAL) eGFR (10/25/2024 5:48 AM [facility]) eGFR 9(L) >=60 mL/min/1. 73 m2 Comment: [...] last reviewed 2021. Blood 10/25/2024 5:48 AM [facility] 10/25/2024 6:03 AM [facility] Raisa Scherer CHILLER OPERATOR LAB BLOOD ORDERABLES Jeaneth l Result Performing Organization Address City/[facility]/ZIP Co de Phone Number NID[facility] [id number] [address] [place] [address] * Hepatitis panel, acute Blood (10/23/2024 2:45 PM [facility]) Hep A IgM Nonreactive Nonreactive Comment: Interpretive Data: If Hep A IgM Ab is reported as Equivocal, a new sample should be drawn in two weeks for testing. Current interpretive data was last revised on 20. Hep B core IgM Nonreactive Nonreactive [facility] Comment: Interpretive Data If HepB Core IgM Ab is reported as Equivocal, a new sample should be drawn in two weeks for testing. Current interpretive data was last revised on 20. Hep C Ab Nonreactive Nonreactive [facility] Comment: Interpretive Data Nonreactive: Antibodies to [...] last revised on 2020. HepBsAg Nonreactive Nonreactive [facility] Blood 10/23/2024 2:45 PM [facility] 10/23/2024 2:46 PM [facility] Sherrill Christianson MD LAB MICROBIOLOGY - GENERAL ORDERABLES Final Result Performing Organization Address City/[facility]/ZIP Co de Phone Number [facility] [place] [id number] [address] [place] [address] * (ABNORMAL) DIABETES EYE EXAM (08/13/2024 9:40 AM CDT) us Historical Provider HEALTH MAINTENANCE Edited Result - [...] LAB URINE ORDERABLES Jeaneth l Result [facility] [id number] [address] [facility] [place] [address] * (ABNORMAL) Lipid panel (03/03/2024 9:29 AM [...] AM CDT 03/03/2024 4:40 PM CDT us Michelleise Efe Pinto NP LAB BLOOD ORDERABLES Jeaneth jacey Result [facility] [id number] [address] [facility] [place] [address] * CT Abdomen Pelvis WO Contrast (12/05/2021 11:53 AM [facility]) Anatomical Region Laterality Modality Body N/A Computed Tomogra phy 12/05/2021 12:0 4 PM [facility] Impressions 12/05/2021 12:04 PM [facility] Bone windows show no suspicious lytic or blastic lesions. IMPRESSION: 1. 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 2. 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 Electronically signed by: Ryan Cameron M.D. Narrative 12/05/2021 12:04 PM [facility] EXAMINATION: Computed tomography of the abdomen/pelvis without [...] adeniform shape. There is atrophy of both chinik kidneys. Adjacent fat stranding is likely related [...] adeniform shape. There is atrophy of both chinik kidneys. Adjacent fat stranding is likely related [...] LIFE MEDICARE MEDICARE FOR LIFE Care Teams Field Contact Person Relationship Specialty Start Date End Date Mariza Carrion MD [address] [facility] [address] [place] [address] PCP - General Family Practice 03/05/23 Efren Hoyos MD Referring Physician Ophthalmology 06/16/19 Dank Hicks MD [address] [place], [place] [phone] Consulting Physician Cardiology 10/11/21
--- NOTE | 2025-02-15 20:00 | ED.WEAKNESS ---
HPI - Weakness General Chief complaint: Weakness Stated complaint: stroke like symptoms Time Seen by Provider: 02/15/25 19:11 Source: patient Mode of arrival: EMS Limitations: no limitations History of Present Illness HPI Narrative: This 79-year-old male, with history of CHF and end-stage renal disease, brought in by EMS from his group home for generalized weakness and blurred vision. Patient's symptoms began approximately 1800. Patient denies focal weakness or numbness. He denies chest pain, nausea, vomiting or change in urination. He states he feels somewhat short of breath but denies cough. He has no other complaints at this time. Related Data Home Medications ?Medication ?Instructions ?Recorded ?Confirmed ?Last Taken ?Type aspirin 81 mg tablet,delayed 81 mg PO DAILY 10/31/21 01/05/25 12/08/24 History release carvedilol 25 mg tablet 25 mg PO BID 10/31/21 01/05/25 12/19/24 History insulin lispro 100 unit/mL 4 unit subcut .TIDAC 10/31/21 01/05/25 12/19/24 History subcutaneous pen loratadine 10 mg tablet (Claritin) 10 mg PO PRN 10/31/21 01/05/25 12/19/24 History insulin glargine 100 unit/mL (3 6 unit subcut DAILY 11/07/23 01/05/25 12/19/24 History mL) subcutaneous pen (Lantus Solostar U-100 Insulin) cinacalcet 90 mg PO DAILY 12/12/23 01/05/25 12/19/24 History atorvastatin 20 mg tablet 20 mg PO DAILY 12/21/24 01/05/25 12/19/24 History pentoxifylline 400 mg 400 mg PO DAILY 01/29/25 Unknown History tablet,extended release Allergies Allergy/AdvReac Type Severity Reaction Status Date / Time No Known Allergies Allergy Verified 12/20/24 08:13 Review of Systems Review of Systems: All systems reviewed & are unremarkable except as noted in HPI and below PMFSH Past Medical History Medical History Sinus pause (~09/2024) Bilateral shoulder pain Obstructive sleep apnea Insulin dependent type 2 diabetes mellitus Chronic obstructive pulmonary disease Coronary artery disease Benign prostatic hyperplasia Peripheral vascular disease (~03/2023) Internal hemorrhoid, bleeding Anemia End-stage renal disease on hemodialysis History of colon polyps Environmental allergies Vitamin D deficiency Dyslipidemia Essential (primary) hypertension Surgical History Surgical History History of cardiac pacemaker (~10/2024) due to symptomatic sinus pauses causing syncope History of hemorrhoidectomy Anorectal evaluation under anesthesia and excisional hemorrhoidectomy x3 12/14/23 SAW S/P peripheral artery angioplasty (~03/2023) status post balloon angioplasty of bilateral common and external iliac arteries status post left iliofemoral endarterectomy Arteriovenous fistula of left upper extremity (~2017) History of appendectomy (~1962) History of coronary artery bypass graft (~2013) Family History Family History Mother Diabetes mellitus Acute myocardial infarction Family history of congestive heart failure Father Hypertension Social History Social History Social History: Surrogate medical decision maker: Wilianisael Morrissey, sibling. Code status: Full code. Caffeine- daily Smoking packs per day: 10 Smoking cigarettes per day: 200.0 Years smoked: 10 Smoking pack-years: 100.00 Smoking status: Former smoker Second hand tobacco smoke exposure: No Alcohol intake: never Drinks per week: 1 Alcohol use details: Maybe 2-3 per year Substance use: never Substance use type: does not use Do You Feel Safe in your Home?: Yes Lack of Transportation: No Lack of Food: Never True Current Housing: I Have Housing Concerned About Future Housing: No Difficulty Paying Gas/Electric Bills: No Difficulty Paying for Meds: No Currently Unemployed: No Education: Associate Degree Difficulty w/ Childcare or Family Care: No Living arrangements: with family Occupation/Education: retired Additional occupation/education comments: Retired from the [employer]. Spiritual care concerns: No Agree to blood products: Yes Exam Narrative: GENERAL: Well-developed, well-nourished, and in no acute distress. Appears tired HEAD: Normocephalic, atraumatic. EYES: PERRLA and EOMI. ENT: Nares clear, no rhinorrhea or epistaxis. Mucous membranes dry. Oropharynx without tonsillar hypertrophy exudate or other lesions. NECK: Supple. No JVD CHEST: Rales noted in the posterior bilateral lung portillo, greater on the left than the right. No respiratory distress. No wheezes rales or rhonchi HEART: Regular rate and rhythm. No murmur heard. Normal peripheral pulses. ABDOMEN: Soft, nontender, nondistended, normal active bowel sounds. EXTREMITIES: Normal range of motion. Trace bilateral lower extremity edema SKIN: Warm, dry, no rash. NEURO: Alert and oriented x3. No focal deficit. Moving all 4 limbs spontaneously PSYCH: Normal mood and affect. Course Course Emergency Course: 23:50 - CBC demonstrates mild anemia with hemoglobin of 9.7 but is otherwise unremarkable. Chemistries demonstrate mild hyponatremia sodium of 134 the BUN creatinine elevation of 31 and 5.12 respectively. Potassium 4.5. Bicarb 35 anion gap of 10. Glucose 136. Calcium slightly elevated at 10.4. Troponin slightly elevated at 0.067 (this appears better than the patient's usual). BNP greater than 30,000. Chest x-ray showed changes consistent with pneumonia and or pulmonary edema. CT head not concerning for acute intracranial process. The patient tested negative for COVID. EKG not concerning for ischemia the does show QTC prolongation. Patient was given antibiotics for possible pneumonia. He was given 80 of IV Lasix as he does continue to make urine. I discussed the patient with perinatal specialist, Dr. Tang who agrees to consult. I discussed the patient with hospitalist, JUAREZ Wray who discussed the patient with hospitalist, Dr. Leo who accepts admission. Vital Signs Vital signs: Vital Signs Temperature 97.7 F 02/15/25 18:55 Pulse Rate 78 02/15/25 18:55 Respiratory Rate 16 02/15/25 18:55 Blood Pressure 151/71 H 02/15/25 18:55 Temperature 97.7 F 02/15/25 18:55 Pulse Rate 78 02/15/25 19:15 Respiratory Rate 18 02/15/25 19:15 Blood Pressure 147/88 H 02/15/25 19:15 Pulse Oximetry 91 02/15/25 23:57 Oxygen Delivery Nasal Cannula 02/15/25 23:57 Oxygen Flow Rate 4 02/15/25 23:57 MDM - Weakness MDM Narrative Medical decision making narrative: Plan: Labs, EKG, imaging, troponin, reassess Differential Diagnosis Differential diagnosis: Likely hypoglycemia, sepsis, dehydration and other (ACS, CHF exacerbation show a complete pneumonia, COVID, metabolic abnormality, other) Lab Data 02/15/25 20:56 02/15/25 20:56 Labs: Lab Results 02/15/25 02/15/25 02/15/25 Range/Units 19:05 20:56 23:27 WBC 5.0 (4.5-10.0) K/mm3 RBC 3.65 L (4.6-6.20) M/mm3 Hgb 9.7 L (14.0-18.0) g/dL Hct 33.4 L (42.0-52.0) % MCV 91.5 (80-100) fl MCH 26.6 (26-34) pg MCHC 29.0 L (32-36) g/dl RDW 18.6 H (11.5-14.5) % Plt Count 199 (150-375) k/mm3 MPV 10.7 H (7.4-10.4) fl Immature Gran % (Auto) 0.4 (0-0.5) % Neut % (Auto) 71.0 (45.5-73.1) % Lymph % (Auto) 12.0 L (18.3-44.2) % [place] % (Auto) 12.2 H (2.6-8.5) % Eos % (Auto) 3.0 (0-4.4) % Baso % (Auto) 1.4 H (0.2-1.2) % Lymph # (Auto) 0.60 L (0.9-3.2) K/mm3 [place] # (Auto) 0.6 (0.1-0.6) K/mm3 Eos # (Auto) 0.2 (0-0.3) K/mm3 Baso # (Auto) 0.1 (0.0-0.1) K/mm3 Abs Immat Gran (auto) 0.02 (0.00-0.031) K/mm3 Absolute Neuts (auto) 3.5 (1.3-6.7) K/mm3 Absolute Nucleated RBC 0.000 (0.0-0.012) K/mm3 Band Neutrophils % Not Reportable Nucleated RBC % 0.0 (0.0-0.2) % Platelet Estimate Adequate (Adequate) Large Platelets Present Giant Platelets Present Hypochromasia 2+ Poikilocytosis 1+ Anisocytosis 1+ Schistocytes Rare PT 13.8 (11.1-14.7) Seconds INR 1.0 APTT 35.1 (22.3-36.8) Seconds Sodium 134 L (137-145) mmol/L Potassium 4.5 (3.4-5.0) mmol/L Chloride 89 L (98-107) mmol/L Carbon Dioxide 35 H (22-30) mmol/L Anion Gap 10 (4-12) mmol/L BUN 31 H D (9-20) mg/dL Creatinine 5.12 H (0.7-1.3) mg/dL Estim Creat Clear Calc Not Reportable Estimated GFR 11 L (59 - ) Glucose 136 H (65-110) mg/dL POC Capillary Glucose 128 H (65-105) mg/dl Lactic Acid 0.8 (0.7-2.0) mmol/L Calcium 10.4 H (8.4-10.2) mg/dL Magnesium 2.2 (1.6-2.3) mg/dL Total Bilirubin 0.3 (0.2-1.3) mg/dL AST 16 L (17-59) U/L ALT 12 (6-50) U/L Alkaline Phosphatase 79 (38-126) U/L Troponin I 0.067 H* (0.000-0.034) ng/mL NT-Pro-B Natriuret Pep > 14845 H (19.9-100) pg/mL Total Protein 7.0 (6.3-8.2) g/dL Albumin 4.0 (3.5-5.1) g/dL Urine Color Pending Urine Appearance Pending Urine pH Pending Ur Specific [place] Pending Urine Protein Pending Urine Glucose (UA) Pending Urine Ketones Pending Ur Blood (Man) Pending Urine Nitrate Pending Urine Bilirubin Pending Urine Urobilinogen Pending Leukocyte Esterase Rfl Pending SARS-CoV-2 RNA (RT-PCR) Negative (Negative) ECG Data EKG #1: Attestation: I personally reviewed and interpreted this ECG as follows: ECG completion date: 02/15/25 ECG completion time: 19:53 Prior ECG tracings: available for review Interpretation: AFib, rate 78, right axis deviation, right bundle-branch block, no ST segment elevations concerning for ischemia, T-wave inversions in lead 2, AVF, V1, V2 and V3, QTC prolongation of 543. Compared to EKG done in December 2024, there are no significant changes. Discharge Plan Discharge Clinical Impression: Hypoxia Pulmonary edema Qualifiers: Chronicity: acute Qualified Code(s): J81.0 - Acute pulmonary edema Pneumonia Qualifiers: Pneumonia type: due to unspecified organism Laterality: unspecified laterality Lung location: unspecified part of lung Qualified Code(s): J18.9 - Pneumonia, unspecified organism Patient Disposition: Still a Patient Condition: Serious Patient Language: Czech Prescriptions: No Action carvedilol 25 mg tablet 25 mg PO BID aspirin 81 mg tablet,delayed release (DR/EC) 81 mg PO DAILY insulin lispro 100 unit/mL insulin pen 4 unit subcut .TIDAC loratadine [Claritin] 10 mg tablet 10 mg PO PRN insulin glargine [Lantus Solostar U-100 Insulin] 100 unit/mL (3 mL) insulin pen 6 unit subcut DAILY atorvastatin 20 mg tablet 20 mg PO DAILY tamsulosin 0.4 mg Capsule 0.4 mg PO QHS Qty: 30 0RF sevelamer carbonate 0.8 gram Powder In Packet 3.2 g PO TIDWM 30 Days Qty: 60 0RF furosemide 80 mg Tablet 80 mg PO BID Qty: 60 0RF finasteride [Proscar] 5 mg Tablet 5 mg PO QAM Qty: 30 0RF cinacalcet 90 mg PO DAILY acetaminophen 325 mg Tablet 650 mg PO Q4H PRN (Reason: Mild Pain (1-3) Or Fever) Qty: 60 0RF Retacrit 10,000 unit/mL Solution 10,000 unit IV PUSH TuThSa@1800 Qty: 10 0RF pentoxifylline 400 mg tablet extended release 400 mg PO DAILY Rx Instructions: must administer with a meal/food Follow-up/Referrals: Radha Carrion MD [Primary Care Provider] - Time of Disposition: 23:50
[2025-02-15 21:04] LABS: Basophils Absolute Auto 0.1 K/mm3 (0.0-0.1); Basophils Percent Auto 1.4 % (0.2-1.2); Eosinophils Absolute Auto 0.2 K/mm3 (0-0.3); Hematocrit 33.4 % (42.0-52.0); Hemoglobin 9.7 g/dL (14.0-18.0); Immature Granulocyte Absolute 0.02 K/mm3 (0.00-0.031); Immature Granulocyte Percent A 0.4 % (0-0.5); Mean Corpuscular Hemoglobin 26.6 pg (26-34); Mean Corpuscular Volume 91.5 fl (80-100); Mean Platelet Volume 10.7 fl (7.4-10.4); Monocytes Absolute Auto 0.6 K/mm3 (0.1-0.6); Monocytes Percent Auto 12.2 % (2.6-8.5); Neutrophils Absolute Auto 3.5 K/mm3 (1.3-6.7); Platelet Count Result 199 k/mm3 (150-375); Red Blood Count 3.65 M/mm3 (4.6-6.20); Red Cell Distribution Width 18.6 % (11.5-14.5)
[2025-02-15 21:14] LABS: Alanine Aminotransferase 12 U/L (6-50); Alkaline Phosphatase 79 U/L (38-126); Anion Gap 10 mmol/L (4-12); Aspartate Amino Transferase 16 U/L (17-59); Bilirubin,Total 0.3 mg/dL (0.2-1.3); Blood Urea Nitrogen 31 mg/dL (9-20); Calcium 10.4 mg/dL (8.4-10.2); Carbon Dioxide 35 mmol/L (22-30); Chloride 89 mmol/L (98-107); Estimated Glomerular Filt Rate 11; Glucose 136 mg/dL (65-110); Lactic Acid Reflex 0.8 mmol/L (0.7-2.0); Magnesium 2.2 mg/dL (1.6-2.3); Potassium 4.5 mmol/L (3.4-5.0); Sodium 134 mmol/L (137-145)
[2025-02-15 21:21] LABS: Prothrombin Time 13.8 Seconds (11.1-14.7)
[2025-02-15 21:22] LABS: Partial Thromboplastin Time 35.1 Seconds (22.3-36.8)
[2025-02-15 21:27] LABS: Anisocytosis 1+; Giant Platelets Present; Hypochromasia 2+; Large Platelets Present; Platelet Estimate Adequate (Adequate)
[2025-02-15 21:29] LABS: Poikilocytosis 1+; Schistocytes Rare
[2025-02-15 21:40] LABS: SARS-CoV-2 RNA PCR Negative (Negative)
[2025-02-15 21:52] LABS: NT Pro B Type Natriuretic Pept > 30000 pg/mL (19.9-100); Troponin I 0.067 ng/mL (0.000-0.034)
[2025-02-15] MEDS: CEFEPIME 2 GM/NS 50 ML 2 GM/50 ML BAG IVPB (21:57)
[2025-02-15] MEDS: FUROSEMIDE INJ 100 MG/10 ML VIAL 80 MG IV PUSH (22:10)
[2025-02-15] MEDS: AZITHROMYCIN 250 MG TABLET 500 MG PO (22:35)
--- NOTE | 2025-02-15 23:13 | PC.NURSE ---
Pt repositioned in bed, clean linen applied and brief changed.
[2025-02-15 23:54] LABS: Add Urine Microscopic? YES; Appearance Urine Clear (Clear); Bacteria Urine None Seen /hpf; Bilirubin Urine Negative (Negative); Blood Urine Non-Hemolyzed Trace (Negative); Color Urine Yellow (Yellow); Glucose Urine UA Trace mg/dL (Negative); Ketones Urine Negative (Negative); Leukocyte Esterase Ur Negative LEU/UL (Negative); Nitrate Urine Negative (Negative); Non Pathogenic Casts 0-2; Protein Urine 3+ mg/dL (Negative); Specific Grav Ur 1.011 (1.001-1.035); Squamous Epithelial Cell Urine None Seen /hpf (Few); Urobilinogen Urine 0.2 mg/dL (<2.0); WBC Urine 0-5 /hpf (0-3)
[2025-02-15 23:57] VITALS: O2SAT 91
[2025-02-16] VITALS (18 sets, daily range): BP systolic 136–163; BP diastolic 67–96; PULSE 69–81; RESP 18–20; TEMP 36.3–36.8; O2SAT 90–98; BMI 28.5
[2025-02-16 00:56] LABS: Glucose Point of Care 129 mg/dl (65-105)
[2025-02-16] MEDS: INSULIN GLARGINE (*BKC) 100 UNITS/ML 6 UNITS SUB-Q ×2 (00:59→17:30)
--- NOTE | 2025-02-16 02:15 | ADMGEN ---
This patient, Sam Morrissey, was admitted to IMU Room 203-01 on 02/16/25 at 0120. Patient/family oriented to hospital policies and general routines including ID bracelet, bed and alarms, visiting hours, pain management, procedures, bathroom and other care routines, personal items, smoking policy, room service/diet, and visiting hours. Information on how to activate the Rapid Response Team has been discussed. Patient/Family are encouraged to report perceived risks to care and to ask questions if they do not understand what they are told or what they should do. Pt A&O x3 (Person, place, president). Pt arousable to verbal speech, but very drowsy and falls asleep quickly after H&P questions initiated without answering. H&P obtained from previous admissions and group home paperwork.
[2025-02-16 04:59] LABS: Basophils Absolute Auto 0.1 K/mm3 (0.0-0.1); Basophils Percent Auto 1.2 % (0.2-1.2); Eosinophils Absolute Auto 0.2 K/mm3 (0-0.3); Eosinophils Percent Auto 3.7 % (0-4.4); Hematocrit 30.7 % (42.0-52.0); Hemoglobin 9.2 g/dL (14.0-18.0); Immature Granulocyte Absolute 0.02 K/mm3 (0.00-0.031); Immature Granulocyte Percent A 0.4 % (0-0.5); Lymphocytes Percent Auto 15.9 % (18.3-44.2); Mean Corpuscular Hemoglobin 27.1 pg (26-34); Mean Corpuscular Volume 90.3 fl (80-100); Mean Platelet Volume 10.2 fl (7.4-10.4); Monocytes Absolute Auto 0.8 K/mm3 (0.1-0.6); Monocytes Percent Auto 14.8 % (2.6-8.5); Neutrophils Absolute Auto 3.6 K/mm3 (1.3-6.7); Platelet Count Result 190 k/mm3 (150-375); Red Cell Distribution Width 18.6 % (11.5-14.5); White Blood Count 5.7 K/mm3 (4.5-10.0)
[2025-02-16 05:16] LABS: Anion Gap 9 mmol/L (4-12); Blood Urea Nitrogen 34 mg/dL (9-20); Calcium 10.6 mg/dL (8.4-10.2); Carbon Dioxide 34 mmol/L (22-30); Chloride 91 mmol/L (98-107); Estimated CRCL calculation 10 ml/min; Estimated Glomerular Filt Rate 10; Glucose 108 mg/dL (65-110); Potassium 4.9 mmol/L (3.4-5.0); Sodium 134 mmol/L (137-145)
[2025-02-16 05:28] LABS: Troponin I 0.062 ng/mL (0.000-0.034)
--- NOTE | 2025-02-16 07:02 | P.HP_ITS ---
H&P: HPI History of Present Illness Date/Time: 02/16/25 07:02 Chief Complaint: Weakness and blurred vision Narrative: 79-year-old male with a past medical history of end-stage renal disease on dialysis Sunday, coronary artery disease status post CABG 2013, cardiac pacemaker due to sinus pauses October 2024, peripheral artery status post angioplasty and endarterectomy bilateral lower extremities, obstructive sleep apnea intolerant to CPAP, COPD, insulin-dependent diabetes mellitus, unstageable decubitus ulcer right heel with eschar among other comorbidities who presented to the ER via EMS from [facility] due to weakness and blurred vision. The patient reports that in the late afternoon he felt as if he could not move any of his extremities. The shelter staff at also reported the patient had had some blurred vision patient did not mention mention vision changes at the time of my evaluation. On the scene the patient was found to be hypoxic. He denied any chest pain. He reports to me that he has been having some cough that is not productive. He reports that his breathing feels shallow but no worse than usual. He has not been having any fevers or chills. He denies any nausea or vomiting or changes in bowel habits. He reports that he still produces a little bit of urine each day. Review of Systems 2 Review of Systems: 12 systems were reviewed with pertinent positives and negatives per HPI. Except as documented in the HPI, all other systems were reviewed and are negative. FOR[facility]LY [facility] Past Medical History Medical History (Updated 02/16/25 @ 08:20 by Alexandra Leo DO) Diabetes Bilateral shoulder pain Coronary artery disease Chronic obstructive pulmonary disease Diabetic peripheral neuropathy Anemia Atrial fibrillation Chronic neck and back pain Insomnia History of nephrolithiasis Sinus pause (~09/2024) Obstructive sleep apnea Intolerant to CPAP Insulin dependent type 2 diabetes mellitus (~2009) Benign prostatic hyperplasia Peripheral vascular disease (~03/2023) Internal hemorrhoid, bleeding End-stage renal disease on hemodialysis DVT dialysis Sunday History of colon polyps Environmental allergies Vitamin D deficiency Dyslipidemia Essential (primary) hypertension Surgical History Surgical History (Updated 02/16/25 @ 08:06 by Alexandra Leo DO) History of cardiac pacemaker (~10/2024) Med[employer] pacemaker placed due to symptomatic sinus pauses causing syncope performed at [facility] Status post cataract extraction of both eyes with insertion of intraocular lens History of colonoscopy with polypectomy History of hemorrhoidectomy (~01/12/24) Anorectal evaluation under anesthesia and excisional hemorrhoidectomy x3 12/14/23 SAW S/P peripheral artery angioplasty (~03/2023) status post balloon angioplasty of bilateral common and external iliac arteries status post left iliofemoral endarterectomy Arteriovenous fistula of left upper extremity (~2017) History of appendectomy (~1963) History of coronary artery bypass graft (~2013) Family History Family History Mother Diabetes mellitus Acute myocardial infarction Family history of congestive heart failure Father Hypertension Social History Social History (Updated 02/16/25 @ 08:09 by Alexandra Leo DO) Social History: The patient is . He and his brother live together prior to his recent hospitalization and placement in to [facility]. He is retired after 26 years of serving in the [employer]. He has 4 children. He used to smoke 1.5-2 packs of cigarettes per day but quit smoking in approximately 2009. He will on a rare occasion drink an alcoholic beverage maybe 2 to 3 times a year. He denies illicit substance use. Surrogate medical decision maker: Wilian Morrissey, sibling. Code status: Full code. Caffeine- daily Smoking packs per day: 1.5 Smoking cigarettes per day: 30.0 Years smoked: 44 Smoking pack-years: 66.00 Smoking status: Former smoker Second hand tobacco smoke exposure: No Alcohol intake: current Alcohol use details: Maybe 2-3 per year Substance use: unknown Substance use type: unknown Do You Feel Safe in your Home?: Yes Lack of Transportation: No Lack of Food: Never True Current Housing: I Have Housing Concerned About Future Housing: No Difficulty Paying Gas/Electric Bills: No Difficulty Paying for Meds: No Currently Unemployed: No Education: Associate Degree Difficulty w/ Childcare or Family Care: No Living arrangements: with family Occupation/Education: retired Additional occupation/education comments: Retired from the [employer]. Spiritual care concerns: No Agree to blood products: Yes Meds Home Medications and Allergies Home Medications ?Medication ?Instructions ?Recorded ?Confirmed ?Type aspirin 81 mg tablet,delayed 81 mg PO DAILY 10/31/21 02/16/25 History release carvedilol 25 mg tablet 25 mg PO BID 10/31/21 02/16/25 History insulin lispro 100 unit/mL 4 unit subcut .TIDAC 10/31/21 02/16/25 History subcutaneous pen loratadine 10 mg tablet (Claritin) 10 mg PO DAILY 10/31/21 02/16/25 History insulin glargine 100 unit/mL (3 6 unit subcut QPM 11/07/23 02/16/25 History mL) subcutaneous pen (Lantus Solostar U-100 Insulin) cinacalcet 90 mg PO DAILY 12/12/23 02/16/25 History atorvastatin 20 mg tablet 20 mg PO HS 12/21/24 02/16/25 History finasteride 5 mg tablet (Proscar) 5 mg PO QAM #30 tabs 12/23/24 02/16/25 Rx furosemide 80 mg tablet 80 mg PO BID #60 tabs 12/23/24 02/16/25 Rx sevelamer carbonate 0.8 gram oral 3.2 g PO TIDWM 30 days #60 ea 12/23/24 02/16/25 Rx powder packet tamsulosin 0.4 mg capsule 0.4 mg PO QHS #30 caps 12/23/24 02/16/25 Rx acetaminophen 325 mg tablet 650 mg (2 x 325 mg) PO Q4H PRN 01/10/25 02/16/25 Rx Mild Pain (1-3) Or Fever #60 tabs pentoxifylline 400 mg 400 mg PO QPM 01/29/25 02/16/25 History tablet,extended release acetaminophen 300 mg-codeine 30 mg 1 tablet PO Q6H PRN pain, severe 02/16/25 02/16/25 History tablet amlodipine 10 mg tablet 10 mg PO DAILY 02/16/25 02/16/25 History bisacodyl 10 mg rectal suppository 10 mg RECTAL DAILY PRN constipation 02/16/25 02/16/25 History (Laxative (bisacodyl)) cyclobenzaprine 10 mg tablet 10 mg PO TID 02/16/25 02/16/25 History gabapentin 100 mg capsule 100 mg PO TID 02/16/25 02/16/25 History liraglutide 0.6 mg/0.1 mL (18 mg/3 0.6 mg subcut DAILY 02/16/25 02/16/25 History mL) subcutaneous pen injector liraglutide 0.6 mg/0.1 mL (18 mg/3 1.2 mg subcut DAILY 02/16/25 02/16/25 History mL) subcutaneous pen injector loratadine 10 mg capsule (Allergy 10 mg PO DAILY PRN itching 02/16/25 02/16/25 History Relief (loratadine)) magnesium citrate (Citroma oral 296 ml PO .AM PRN constipation 02/16/25 02/16/25 History solution) magnesium hydroxide 400 mg/5 mL 30 ml PO HS PRN constipation 02/16/25 02/16/25 History oral suspension (Milk of Magnesia) silver sulfadiazine 1 % topical 1 applic topical QAM 02/16/25 02/16/25 History cream (Silvadene) sodium phosphates 19 gram-7 118 ml RECTAL DAILY PRN 02/16/25 02/16/25 History gram/118 mL enema (Fleet Enema) constipation vitamin B complex 1 cap PO DAILY 02/16/25 02/16/25 History Allergies Allergy/AdvReac Type Severity Reaction Status Date / Time No Known Allergies Allergy Verified 02/16/25 05:50 Vital Signs Vital Signs - 24 hr 02/15/25 18:55 02/15/25 19:15 02/15/25 23:57 Temperature 97.7 F Pulse Rate 78 78 Respiratory Rate 16 18 Blood Pressure 151/71 H 147/88 H Pulse Oximetry 91 91 Oxygen Delivery Nasal Cannula Oxygen Flow Rate 4 02/16/25 01:20 02/16/25 01:30 02/16/25 01:34 Temperature 97.4 F L Pulse Rate 75 75 75 Respiratory Rate 18 18 Blood Pressure 151/70 H Pulse Oximetry 97 97 Oxygen Delivery Nasal Cannula Oxygen Flow Rate 3 02/16/25 02:00 02/16/25 04:00 02/16/25 04:00 Temperature 97.8 F Pulse Rate 73 81 76 Respiratory Rate 20 Blood Pressure 157/70 H Pulse Oximetry 91 Oxygen Delivery Oxygen Flow Rate 02/16/25 04:00 02/16/25 06:00 Temperature Pulse Rate 76 74 Respiratory Rate 20 Blood Pressure Pulse Oximetry 91 Oxygen Delivery Nasal Cannula Oxygen Flow Rate 3 Exam 2 Narrative: Weight 82.6 kg BMI 28.5 H&P: Results Labs Labs: Laboratory Tests 02/16/25 04:51 02/16/25 04:51 02/15/25 02/15/25 02/15/25 19:05 20:56 23:27 WBC 5.0 RBC 3.65 L Hgb 9.7 L Hct 33.4 L MCV 91.5 MCH 26.6 MCHC 29.0 L RDW 18.6 H Plt Count 199 MPV 10.7 H Immature Gran % (Auto) 0.4 Neut % (Auto) 71.0 Lymph % (Auto) 12.0 L [place] % (Auto) 12.2 H Eos % (Auto) 3.0 Baso % (Auto) 1.4 H Lymph # (Auto) 0.60 L [place] # (Auto) 0.6 Eos # (Auto) 0.2 Baso # (Auto) 0.1 Abs Immat Gran (auto) 0.02 Absolute Neuts (auto) 3.5 Absolute Nucleated RBC 0.000 Band Neutrophils % Not Reportable Nucleated RBC % 0.0 Platelet Estimate Adequate Large Platelets Present Giant Platelets Present Hypochromasia 2+ Poikilocytosis 1+ Anisocytosis 1+ Schistocytes Rare PT 13.8 INR 1.0 APTT 35.1 Sodium 134 L Potassium 4.5 Chloride 89 L Carbon Dioxide 35 H Anion Gap 10 BUN 31 H D Creatinine 5.12 H Estim Creat Clear Calc Not Reportable Estimated GFR 11 L Glucose 136 H POC Capillary Glucose 128 H Lactic Acid 0.8 Calcium 10.4 H Magnesium 2.2 Total Bilirubin 0.3 AST 16 L ALT 12 Alkaline Phosphatase 79 Troponin I 0.067 H* NT-Pro-B Natriuret Pep > 11328 H Total Protein 7.0 Albumin 4.0 Urine Color Yellow Urine Appearance Clear Urine pH 8.0 Ur Specific [place] 1.011 Urine Protein 3+ H Urine Glucose (UA) Trace H Urine Ketones Negative Ur Blood (Man) Non-hemolyzed trace Urine Nitrate Negative Urine Bilirubin Negative Urine Urobilinogen 0.2 Leukocyte Esterase Rfl Negative Urine RBC 3-5 H Urine WBC 0-5 Ur Squamous Epith Cells None seen Urine Bacteria None seen Urine Casts 0-2 SARS-CoV-2 RNA (RT-PCR) Negative 02/16/25 02/16/25 02/16/25 00:53 02:08 04:51 WBC 5.7 RBC 3.40 L Hgb 9.2 L Hct 30.7 L MCV 90.3 MCH 27.1 MCHC 30.0 L RDW 18.6 H Plt Count 190 MPV 10.2 Immature Gran % (Auto) 0.4 Neut % (Auto) 64.0 Lymph % (Auto) 15.9 L [place] % (Auto) 14.8 H Eos % (Auto) 3.7 Baso % (Auto) 1.2 Lymph # (Auto) 0.90 [place] # (Auto) 0.8 H Eos # (Auto) 0.2 Baso # (Auto) 0.1 Abs Immat Gran (auto) 0.02 Absolute Neuts (auto) 3.6 Absolute Nucleated RBC 0.000 Band Neutrophils % Nucleated RBC % 0.0 Platelet Estimate Large Platelets Giant Platelets Hypochromasia Poikilocytosis Anisocytosis Schistocytes PT INR APTT Sodium 134 L Potassium 4.9 Chloride 91 L Carbon Dioxide 34 H Anion Gap 9 BUN 34 H Creatinine 5.58 H Estim Creat Clear Calc 10 Estimated GFR 10 L Glucose 108 POC Capillary Glucose 129 H Lactic Acid Calcium 10.6 H Magnesium Total Bilirubin AST ALT Alkaline Phosphatase Troponin I 0.060 H* 0.062 H* NT-Pro-B Natriuret Pep Total Protein Albumin Urine Color Urine Appearance Urine pH Ur Specific [place] Urine Protein Urine Glucose (UA) Urine Ketones Ur Blood (Man) Urine Nitrate Urine Bilirubin Urine Urobilinogen Leukocyte Esterase Rfl Urine RBC Urine WBC Ur Squamous Epith Cells Urine Bacteria Urine Casts SARS-CoV-2 RNA (RT-PCR) Impressions Chest X-Ray 02/15/25 19:22 IMPRESSION: Cardiomegaly with highly suggestive cardiac decompensation and pulmonary edema. Bibasilar opacification suggestive of atelectasis versus pneumonia with left pleural effusion. Head CT 02/15/25 19:38 IMPRESSION: No acute intracranial findings. EKG: Test Date: 2025-02-15 19:53:09 Measurements Intervals [place] Rate: 78 P: 0 WA: 0 QRS: 223 QRSD: 162 T: -31 QT: 476 QTc: 543 Interpretive Statements ATRIAL FIBRILLATION RIGHT BUNDLE BRANCH BLOCK LEFT POSTERIOR FASCICULAR BLOCK BASELINE WANDER- II, III, AVF ABNORMAL ECG Compared to ECG 12/20/2024 08:12:42 HEART RATE HAS DECREASED Assessment and Plan Assessment and plan (1) IDDM (insulin dependent diabetes mellitus): Status: Chronic (2) Pressure ulcer of left heel, unstageable: Code(s): L89.620 - Pressure ulcer of left heel, unstageable Status: Acute (3) Pneumonia: Qualifiers: Laterality: unspecified laterality Lung location: unspecified part of lung Pneumonia type: due to unspecified organism Qualified Code(s): J18.9 - Pneumonia, unspecified organism Code(s): J18.9 - Pneumonia, unspecified organism Status: Acute (4) Acute hypoxic respiratory failure: Code(s): J96.01 - Acute respiratory failure with hypoxia Status: Acute (5) Type 2 diabetes mellitus, with long-term current use of insulin: Qualifiers: Diabetes mellitus complication status: with neurologic complications D iabetes mellitus complication detail: with polyneuropathy Qualified Code(s): E 11.42 - Type 2 diabetes mellitus with diabetic polyneuropathy; Z79.4 - assisted (current) use of insulin Code(s): E11.9 - Type 2 diabetes mellitus without complications; Z79.4 - manager terminal (current) use of insulin Status: Acute (6) Seizure disorder: Code(s): G40.909 - Epilepsy, unspecified, not intractable, without status epilepticus Status: Acute (7) CAD in [place] artery: Code(s): I25.10 - Atherosclerotic heart disease of [place] coronary artery without angina pectoris Status: Acute (8) End-stage renal disease on hemodialysis: Code(s): N18.6 - End stage renal disease; Z99.2 - Dependence on renal dialysis Status: Acute (9) Weakness: Code(s): R53.1 - Weakness Status: Acute (10) Elevated troponin: Code(s): R79.89 - Other specified abnormal findings of blood chemistry Status: Acute (11) Pulmonary edema: Qualifiers: Chronicity: acute Qualified Code(s): J81.0 - Acute pulmonary edema Code(s): J81.1 - Chronic pulmonary edema Status: Acute (12) Obstructive sleep apnea: Code(s): G47.33 - Obstructive sleep apnea (adult) (pediatric) Status: Acute Plan Patient presented weakness and stated he could not move any of his extremities for about 3 hours. Exact cause of this is unknown and patient is alert oriented times 3 but is not the greatest at giving details of the acute situation. He could of been having increased weakness due to hypoxia the patient was found to be hypoxic in the ER. Hypoxic could be due to pulmonary edema/fluid overload from CHF exacerbation or decreased due to end-stage renal disease requiring dialysis. Patient did receive IV Lasix in the ER but has not had any urine output. Nephrology has been consulted. The imaging did suggest possible pneumonia. Patient was placed on empiric antibiotic therapy with cefepime in the ER. Will change antibiotics to Rocephin and vancomycin. Will add doxycycline for atypical coverage as the patient does have QT prolongation on EKG. Will wean oxygen as tolerated. Patient does not tolerate CPAP and will be placed on oxygen as needed for nocturnal hypoxia. The patient's episode of ?not being able to move? seems less likely to be due to stroke. And given lack of recurrence of symptoms will hold off on possible transfer for MRI. The patient has a other risk factors that could have caused his symptoms including evaluation for possible seizure-like activity during prior hospitalization. Will monitor closely for neurologic symptoms. Will place the patient on his home insulin therapy and will add low-dose sliding scale insulin with Accu-Cheks a.c. HS. Patient has placed on a renal dialysis consistent carbohydrate diet. Will repeat CBC and electrolyte panel in a.m.. The patient did have elevated troponin but troponin profile was completely flat and not indicative of acute ischemia. Quality VTE Prophylaxis VTE prophylaxis: pharmacologic ordered (Heparin 5000 units subQ q.12 hours) Hospitalist [facility] Advance Care Plan I have confirmed that the patient's Advanced Care Plan is present, code status is documented, or surrogate decision maker is listed in patient medical record.: Yes Medication Reconciliation I have utilized all available resources to obtain, update and review the patients current medications (includes all prescriptions, OTC, herbals, cannabis, and nutritional supplements).: Yes
--- NOTE | 2025-02-16 08:30 | P.PNIM_ITS ---
Progress Note: A&P Assessment and Plan (1) IDDM (insulin dependent diabetes mellitus): Status: Chronic (2) Pressure ulcer of left heel, unstageable: Code(s): L89.620 - Pressure ulcer of left heel, unstageable Status: Acute (3) Pneumonia: Qualifiers: Laterality: unspecified laterality Lung location: unspecified part of lung Pneumonia type: due to unspecified organism Qualified Code(s): J18.9 - Pneumonia, unspecified organism Code(s): J18.9 - Pneumonia, unspecified organism Status: Acute (4) Seizure disorder: Code(s): G40.909 - Epilepsy, unspecified, not intractable, without status epilepticus Status: Acute (5) Acute hypoxic respiratory failure: Code(s): J96.01 - Acute respiratory failure with hypoxia Status: Acute (6) Type 2 diabetes mellitus, with long-term current use of insulin: Qualifiers: Diabetes mellitus complication detail: with polyneuropathy Diabetes mellitus complication status: with neurologic complications Qualified Code(s): E11.42 - Type 2 diabetes mellitus with diabetic polyneuropathy; Z79.4 - long term (current) use of insulin Code(s): E11.9 - Type 2 diabetes mellitus without complications; Z79.4 - long term (current) use of insulin Status: Acute (7) CAD in [place] artery: Code(s): I25.10 - Atherosclerotic heart disease of [place] coronary artery without angina pectoris Status: Acute (8) End-stage renal disease on hemodialysis: Code(s): N18.6 - End stage renal disease; Z99.2 - Dependence on renal dialysis Status: Acute (9) Weakness: Code(s): R53.1 - Weakness Status: Acute (10) Elevated troponin: Code(s): R79.89 - Other specified abnormal findings of blood chemistry Status: Acute (11) Pulmonary edema: Qualifiers: Chronicity: acute Qualified Code(s): J81.0 - Acute pulmonary edema Code(s): J81.1 - Chronic pulmonary edema Status: Acute (12) Obstructive sleep apnea: Code(s): G47.33 - Obstructive sleep apnea (adult) (pediatric) Status: Acute Plan 79-year-old male with a past medical history of end-stage renal disease on dialysis Sunday, coronary artery disease status post CABG 2013, cardiac pacemaker due to sinus pauses October 2024, peripheral artery [facility] [place] post angioplasty and endarterectomy bilateral lower extremities, obstructive sleep apnea intolerant to CPAP, COPD, insulin-dependent diabetes mellitus, unstageable decubitus ulcer right heel with eschar among other comorbidities who presented to the ER via EMS from correction facility due to weakness and blurred vision. The patient reports that in the late afternoon he felt as if he could not move any of his extremities. The assisted staff at also reported the patient had had some blurred vision patient did not mention mention vision changes at the time of my evaluation. On the scene the patient was found to be hypoxic. General weakness and blurred vision Patient presented weakness and stated he could not move any of his extremities for about [address] head shows no acute intracranial issues Possible due to hypoxemia needs to rule out neuro issues, consult neurologist for evaluation treatment Acute respiratory failure with hypoxemia Possible due to CHF exacerbation pulmonary edema and pneumonia Patient received Lasix in the ED, did make urine Consult engineering technology instructor for dialysis Continue O2 therapy to keep pulse ox above 90 Community-acquired pneumonia X-ray suggest bilateral basal pneumonia Patient was placed on ceftriaxone and doxy IV Follow-up procalcitonin level End-stage renal disease on hemodialysis Overloaded upon arrival Consult engineering technology instructor for dialysis Chronic anemia No obvious bleeding Resulting from chronic renal failure Management per engineering technology instructor Type 2 diabetes Patient is on Lantus 6 units, lispro 5 units a.c. and sliding scale Subjective Date/time seen: 02/16/25 08:30 Interval history: I saw exam patient today. Patient was able to hold bilateral arm up, cannot move both arm above the shoulder. Patient alert oriented, slurred speech has resolved. Exam Narrative: GENERAL: Pleasant, in no acute distress. Well-nourished. - EYES: EOMI. Anicteric. - HENT: Moist mucous membranes. - LUNGS: Coarse breath sound bilaterall y - CARDIOVASCULAR: Regular rate and rhyth m. No murmur. No JVD. - ABDOMEN: Soft, non-tender and non-dist ended. No palpable masses. - EXTREMITIES: No edema. Peripheral puls es 2+. Non-tender. - NEUROLOGIC: No focal neurological defi cits. CN II-XII grossly intact, able to move all extremities - PSYCHIATRIC: Awake, Alert and oriented x 3. Appropriate mood and affect. - SKIN: No rashes or lesions. Warm. - LYMPH: No cervical lymphadenopathy. Objective Data Vital Signs Vital Signs: Vital Signs - 24 hr 02/15/25 18:55 02/15/25 19:15 02/15/25 23:57 Temperature 97.7 F Pulse Rate 78 78 Respiratory Rate 16 18 Blood Pressure 151/71 H 147/88 H Pulse Oximetry 91 91 Oxygen Delivery Nasal Cannula Oxygen Flow Rate 4 Fraction of Inspired Oxygen 02/16/25 01:20 02/16/25 01:30 02/16/25 01:34 Temperature 97.4 F L Pulse Rate 75 75 75 Respiratory Rate 18 18 Blood Pressure 151/70 H Pulse Oximetry 97 97 Oxygen Delivery Nasal Cannula Oxygen Flow Rate 3 Fraction of Inspired Oxygen 02/16/25 02:00 02/16/25 04:00 02/16/25 04:00 Temperature 97.8 F Pulse Rate 73 81 76 Respiratory Rate 20 Blood Pressure 157/70 H Pulse Oximetry 91 Oxygen Delivery Oxygen Flow Rate Fraction of Inspired Oxygen 02/16/25 04:00 02/16/25 06:00 02/16/25 08:00 Temperature 97.5 F L Pulse Rate 76 74 76 Respiratory Rate 20 18 Blood Pressure 136/70 Pulse Oximetry 91 98 Oxygen Delivery Nasal Cannula Oxygen Flow Rate 3 Fraction of Inspired Oxygen 02/16/25 08:14 Temperature Pulse Rate Respiratory Rate Blood Pressure Pulse Oximetry 94 Oxygen Delivery Nasal Cannula Oxygen Flow Rate 3 Fraction of Inspired Oxygen 32 Intake/Output Intake/Output: Intake & Output 02/13/25 02/14/25 02/15/25 02/16/25 23:59 23:59 23:59 23:59 Intake Total 50 60 Output Total 350 Balance 50 -290 Meds/Results Medications: Active Medications Generic Name Dose Route Start Last Admin Trade Name Freq PRN Reason Stop Dose Admin Acetaminophen 650 mg 02/15/25 23:52 Acetaminophen 325 Mg Tablet PO Q4H PRN Mild Pain (1-3) or Fever Amlodipine Besylate 10 mg 02/16/25 09:00 Amlodipine Besylate 10 Mg Tablet PO DAILY PENDING SALE TO [facility] Aspirin 81 mg 02/16/25 09:00 Aspirin 81 Mg Enteric Tablet PO DAILY PENDING SALE TO [facility] Atorvastatin Calcium 20 mg 02/16/25 21:00 Atorvastatin 20 Mg Tablet PO HS PENDING SALE TO [facility] Bisacodyl 10 mg 02/16/25 07:03 Bisacodyl 10 Mg Suppository RECTAL DAILY PRN constipation Carvedilol 25 mg 02/16/25 08:00 Carvedilol 25 Mg Tablet PO BIDWM PENDING SALE TO [facility] Cinacalcet 90 mg 02/16/25 09:00 Cinacalcet 30 Mg Tablet PO 03/18/25 08:59 DAILY DAVID Dextrose 12.5 gm 02/16/25 08:20 Dextrose 50% 25 Gm/50 Ml Syringe IV PUSH PRN PRN Hypoglycemia Protocol Finasteride 5 mg 02/16/25 09:00 Finasteride 5 Mg Tablet PO QAM PENDING SALE TO [facility] Furosemide 80 mg 02/16/25 09:00 Furosemide 80 Mg Tablet PO BID DAVID Gabapentin 100 mg 02/16/25 09:00 Gabapentin 100 Mg Capsule PO TID PENDING SALE TO [facility] Glucagon 1 mg 02/16/25 08:20 Glucagon For Inj 1 Mg Vial IM PRN PRN Hypoglycemia Protocol Glucose 15 gm 02/16/25 08:20 Glucose Oral Gel 15 Gm Of Glucse In 37.5 Gm Tube PO PRN PRN Hypoglycemia Protocol Heparin Sodium (Porcine) 5,000 units 02/16/25 09:00 Heparin Sodium 5,000 Units/Ml Vial SUB-Q Q12HR PENDING SALE TO [facility] Dextrose 1,000 mls @ 100 mls/hr 02/16/25 08:20 Dextrose 5% 1,000 Ml IVPB PRN PRN Hypoglycemia Protocol Ceftriaxone Sodium 1 gm in 50 mls @ 100 mls/hr 02/16/25 08:30 Rocephin 1 Gm/Ns 50 Ml IVPB Q24H PENDING SALE TO [facility] Doxycycline Hyclate 100 mg in 100 mls @ 100 mls/hr 02/16/25 09:00 Vibramycin 100 Mg/Ns 100 Ml IVPB Q12H PENDING SALE TO [facility] Insulin Aspart 4 units 02/16/25 08:00 Insulin Aspart (*Bkc) 100 Units/Ml SUB-Q TIDWM PENDING SALE TO [facility] Insulin Aspart 2 - 5 units 02/16/25 12:00 Insulin Aspart (*Bkc) 100 Units/Ml SUB-Q TIDWM PENDING SALE TO [facility] Protocol Insulin Glargine 6 units 02/16/25 18:00 Insulin Glargine (*Bkc) 100 Units/Ml SUB-Q QPM PENDING SALE TO [facility] Insulin Human NPH 4 units 02/16/25 06:30 02/16/25 07:19 Insulin Human Nph (*Bkc) 100 Units/Ml SUB-Q Not Given BIDAC PENDING SALE TO [facility] Loratadine 10 mg 02/16/25 09:00 Loratadine 10 Mg Tablet PO DAILY PENDING SALE TO [facility] Loratadine 10 mg 02/16/25 07:03 Loratadine 10 Mg Tablet PO DAILY PRN itching Pentoxifylline 400 mg 02/16/25 18:00 Pentoxifylline 400 Mg Tabcr PO QPM PENDING SALE TO [facility] Sevelamer Carbonate 3.2 gm 02/16/25 08:00 Sevelamer Carbonate 0.8 Gm Oral Powder Packet PO TIDWM PENDING SALE TO [facility] Silver Sulfadiazine 1 applic 02/16/25 09:00 Silver Sulfadiazine 1% Cr 50 Gm Jar (*Bkc) TOPICAL QAM PENDING SALE TO [facility] Tamsulosin HCl 0.4 mg 02/16/25 21:00 Tamsulosin Hcl 0.4 Mg Capsule PO QHS PENDING SALE TO [facility] Vancomycin HCl 1 each 02/16/25 08:25 Vancomycin Pharmacist To Dose IVPB PER PROTOCOL PENDING SALE TO [facility] Radiology Results: ITS Impressions Chest X-Ray 02/15/25 19:22 IMPRESSION: Cardiomegaly with highly suggestive cardiac decompensation and pulmonary edema. Bibasilar opacification suggestive of atelectasis versus pneumonia with left pleural effusion. Head CT 02/15/25 19:38 IMPRESSION: No acute intracranial findings. Labs Labs: Laboratory Results - last 24 hr 02/15/25 02/15/25 02/15/25 19:05 20:56 23:27 WBC 5.0 RBC 3.65 L Hgb 9.7 L Hct 33.4 L MCV 91.5 MCH 26.6 MCHC 29.0 L RDW 18.6 H Plt Count 199 MPV 10.7 H Immature Gran % (Auto) 0.4 Neut % (Auto) 71.0 Lymph % (Auto) 12.[address] [place] % (Auto) 12.2 H Eos % (Auto) 3.0 Baso % (Auto) 1.4 H Lymph # (Auto) 0.[address] [place] # (Auto) 0.6 Eos # (Auto) 0.2 Baso # (Auto) 0.1 Abs Immat Gran (auto) 0.02 Absolute Neuts (auto) 3.5 Absolute Nucleated RBC 0.000 Band Neutrophils % Not Reportable Nucleated RBC % 0.0 Platelet Estimate Adequate Large Platelets Present Giant Platelets Present Hypochromasia 2+ Poikilocytosis 1+ Anisocytosis 1+ Schistocytes Rare PT 13.8 INR 1.0 APTT 35.1 Sodium 134 L Potassium 4.5 Chloride 89 L Carbon Dioxide 35 H Anion Gap 10 BUN 31 H D Creatinine 5.12 H Estim Creat Clear Calc Not Reportable Estimated GFR 11 L Glucose 136 H POC Capillary Glucose 128 H Lactic Acid 0.8 Calcium 10.4 H Magnesium 2.2 Total Bilirubin 0.3 AST 16 L ALT 12 Alkaline Phosphatase 79 Troponin I 0.067 H* NT-Pro-B Natriuret Pep > 34010 H Total Protein 7.0 Albumin 4.0 Urine Color Yellow Urine Appearance Clear Urine pH 8.0 Ur Specific [place] 1.011 Urine Protein 3+ H Urine Glucose (UA) Trace H Urine Ketones Negative Ur Blood (Man) Non-hemolyzed trace Urine Nitrate Negative Urine Bilirubin Negative Urine Urobilinogen 0.2 Leukocyte Esterase Rfl Negative Urine RBC 3-5 H Urine WBC 0-5 Ur Squamous Epith Cells None seen Urine Bacteria None seen Urine Casts 0-2 SARS-CoV-2 RNA (RT-PCR) Negative 02/16/25 02/16/25 02/16/25 00:53 02:08 04:51 WBC 5.7 RBC 3.40 L Hgb 9.2 L Hct 30.7 L MCV 90.3 MCH 27.1 MCHC 30.0 L RDW 18.6 H Plt Count 190 MPV 10.2 Immature Gran % (Auto) 0.4 Neut % (Auto) 64.0 Lymph % (Auto) 15.[address] [place] % (Auto) 14.8 H Eos % (Auto) 3.7 Baso % (Auto) 1.2 Lymph # (Auto) 0.90 [place] # (Auto) 0.8 H Eos # (Auto) 0.2 Baso # (Auto) 0.1 Abs Immat Gran (auto) 0.02 Absolute Neuts (auto) 3.6 Absolute Nucleated RBC 0.000 Band Neutrophils % Nucleated RBC % 0.0 Platelet Estimate Large Platelets Giant Platelets Hypochromasia Poikilocytosis Anisocytosis Schistocytes PT INR APTT Sodium 134 L Potassium 4.9 Chloride 91 L Carbon Dioxide 34 H Anion Gap 9 BUN 34 H Creatinine 5.58 H Estim Creat Clear Calc 10 Estimated GFR 10 L Glucose 108 POC Capillary Glucose 129 H Lactic Acid Calcium 10.6 H Magnesium Total Bilirubin AST ALT Alkaline Phosphatase Troponin I 0.060 H* 0.062 H* NT-Pro-B Natriuret Pep Total Protein Albumin Urine Color Urine Appearance Urine pH Ur Specific [place] Urine Protein Urine Glucose (UA) Urine Ketones Ur Blood (Man) Urine Nitrate Urine Bilirubin Urine Urobilinogen Leukocyte Esterase Rfl Urine RBC Urine WBC Ur Squamous Epith Cells Urine Bacteria Urine Casts SARS-CoV-2 RNA (RT-PCR)
[2025-02-16] MEDS: SEVELAMER CARBONATE 0.8 GM ORAL POWDER PACKET 3.2 GM PO ×3 (09:13→17:28)
--- NOTE | 2025-02-16 09:16 | P.CONNP_ITS ---
Assessment and Plan Assessment and plan (1) End stage renal disease: Code(s): N18.6 - End stage renal disease Status: Inactive Assessment and Plan: * HD tomorrow * continue T/T/S outpatient dialysis schedule while hospitalized * follow electrolytes, volume status, and clearance (2) Acute respiratory failure with hypoxia: Code(s): J96.01 - Acute respiratory failure with hypoxia Status: Resolved Assessment and Plan: * due to several issues: * mild pulmonary edema * suspected pneumonia * chronic CHF * COPD * relative anemia * fluid removal/ultrafiltration with dialysis * on antibiotics, nebulizer treatments, and supplemental oxygen * follow respiratory status (3) Upper extremity weakness: Code(s): R29.898 - Other symptoms and signs involving the musculoskeletal system Status: Acute Assessment and Plan: * as noted on presentation * CT of head negative for acute process * due to hypoxia? * Neurology consulted for further evaluation (4) Pneumonia: Qualifiers: Laterality: unspecified laterality Lung location: unspecified part of lung Pneumonia type: due to unspecified organism Qualified Code(s): J18.9 - Pneumonia, unspecified organism Code(s): J18.9 - Pneumonia, unspecified organism Status: Acute Assessment and Plan: * admission CXR with suggestion of pneumonia * started on antibiotic therapy * follow culture data (5) Atrial fibrillation: Code(s): I48.91 - Unspecified atrial fibrillation Status: Inactive Assessment and Plan: * rate control strategy * not on anticoagulation (presumably due to issues with anemia/GI bleed) (6) Anemia: Code(s): D64.9 - Anemia, unspecified Status: Inactive Assessment and Plan: * due to ESRD * Epogen with HD * follow trend of H/H (7) Essential (primary) hypertension: Code(s): I10 - Essential (primary) hypertension Status: Chronic Assessment and Plan: * reasonable control at this time * follow trend of hemodynamics (8) IDDM (insulin dependent diabetes mellitus): Status: Chronic Assessment and Plan: * follow accu-cheks * glycemic control per hospitalists I will continue follow the patient with you while he remains hospitalized and make further recommendations as needed. Thank you for allowing me to participate in the care of this patient. L History of Present Illness Reason for Consult Consult date: 02/16/25 Reason for consult: end stage renal disease Chief Complaint Chief complaint: Hypoxia, Pulmonary edema, Pneumonia History of Present Illness Narrative: The patient is a 79-year-old male with a past medical history as outlined below who presented to the ER via EMS due to weakness and blurred vision. The patient reports that in the late afternoon yesterday, he felt as if he could not move any of his extremities. The half-way staff at also reported the patient had had some blurred vision but the patient did not mention this symptom. Due to these symtpoms, EMS was summoned to his nursing facility. On arrival by EMS, the patient was found to be hypoxic but otherwise hemodynamically stable. In spite of his hypoxia, he gave no symptoms of chest pain or shortness of breath but did report having a non-productive cough. He denied any fevers or chills and stated his breathing seemed to be at baseline. Nevertheless, EMS transported the patient to the ER for further assessment. Work-up and evaluation in the ER demonstrated the patient to be hemodynamically stable and in no acute distress. Routine labs noted a CBCmild anemia with hemoglobin of 9.7 but is otherwise unremarkable, a chemistry panel with mild hyponatremia with a sodium of 134, BUN and creatinine of 31 and 5.12 respectively, potassium 4.5, bicarb 35, glucose 136, and calcium 10.4. Troponin slightly elevated at 0.067 with a BNP greater than 30,000. Chest x-ray showed changes consistent with pneumonia and or pulmonary edema. CT head was negative for acute intracranial process. The patient tested negative for COVID. EKG was not concerning for ischemia the does show QTC prolongation. Patient was given antibiotics for possible pneumonia after appropriate cultures were done along with 80mg of IV Lasix as he does continue to make some urine. He was subsequently admitted to the hospital for further evaluation and therapy. Renal consultation was requested due to his end-stage renal disease. The patient normally dialyzes on a Sunday, , and Sunday dialysis schedule at [facility] under the care of Dr. Brett Tang. From a dialysis perspective, the patient usually does quite well with relative stability in his monthly labs although his fluid gains in between dialysis treatments can be an issue/quite large at times. His last dialysis treatment was on Sunday (02/14/25). From review of his outpatient dialysis records, his last treatment was uneventful and they were able to get him down to his dry weight without any issues or problems. He is due for dialysis tomorrow. Currently, at the time my visit, he appears in acute distress. [facility] Past Medical History Medical History (Updated 02/16/25 @ 14:22 by Martina Booth MD) Diabetic polyneuropathy Diabetic peripheral neuropathy Insomnia History of nephrolithiasis Chronic neck and back pain Atrial fibrillation Diabetes Anemia Bilateral shoulder pain Sinus pause (~09/2024) Obstructive sleep apnea Intolerant to CPAP Insulin dependent type 2 diabetes mellitus (~2009) Chronic obstructive pulmonary disease Coronary artery disease Benign prostatic hyperplasia Peripheral vascular disease (~03/2023) Internal hemorrhoid, bleeding End-stage renal disease on hemodialysis DVT dialysis Sunday History of colon polyps Environmental allergies Vitamin D deficiency Dyslipidemia Essential (primary) hypertension Surgical History Surgical History Status post cataract extraction of both eyes with insertion of intraocular lens History of colonoscopy with polypectomy History of cardiac pacemaker (~10/2024) Medtronic pacemaker placed due to symptomatic sinus pauses causing syncope performed at [facility] History of hemorrhoidectomy (~01/12/24) Anorectal evaluation under anesthesia and excisional hemorrhoidectomy x3 12/14/23 SAW S/P peripheral artery angioplasty (~03/2023) status post balloon angioplasty of bilateral common and external iliac arteries status post left iliofemoral endarterectomy Arteriovenous fistula of left upper extremity (~2017) History of appendectomy (~1962) History of coronary artery bypass graft (~2013) Family History Family History Mother Diabetes mellitus Acute myocardial infarction Family history of congestive heart failure Father Hypertension Social History Social History Social History: The patient is . He and his brother live together prior to his recent hospitalization and placement in to [facility]. He is retired after 26 years of serving in the [employer]. He has 4 children. He used to smoke 1.5-2 packs of cigarettes per day but quit smoking in approximately 2009. He will on a rare occasion drink an alcoholic beverage maybe 2 to 3 times a year. He denies illicit substance use. Surrogate medical decision maker: Wilian Yuni, sibling. Code status: Full code. Caffeine- daily Smoking packs per day: 1.5 Smoking cigarettes per day: 30.0 Years smoked: 44 Smoking pack-years: 66.00 Smoking status: Former smoker Second hand tobacco smoke exposure: No Alcohol intake: current Alcohol use details: Maybe 2-3 per year Substance use: unknown Substance use type: unknown Do You Feel Safe in your Home?: Yes Lack of Transportation: No Lack of Food: Never True Current Housing: I Have Housing Concerned About Future Housing: No Difficulty Paying Gas/Electric Bills: No Difficulty Paying for Meds: No Currently Unemployed: No Education: Associate Degree Difficulty w/ Childcare or Family Care: No Living arrangements: with family Occupation/Education: retired Additional occupation/education comments: Retired from the [employer]. Spiritual care concerns: No Agree to blood products: Yes Meds Home Medications and Allergies Home Medications ?Medication ?Instructions ?Recorded ?Confirmed ?Type aspirin 81 mg tablet,delayed 81 mg PO DAILY 10/31/21 02/16/25 History release carvedilol 25 mg tablet 25 mg PO BID 10/31/21 02/16/25 History insulin lispro 100 unit/mL 4 unit subcut .TIDAC 10/31/21 02/16/25 History subcutaneous pen loratadine 10 mg tablet (Claritin) 10 mg PO DAILY 10/31/21 02/16/25 History insulin glargine 100 unit/mL (3 6 unit subcut QPM 11/07/23 02/16/25 History mL) subcutaneous pen (Lantus Solostar U-100 Insulin) cinacalcet 90 mg PO DAILY 12/12/23 02/16/25 History atorvastatin 20 mg tablet 20 mg PO HS 12/21/24 02/16/25 History finasteride 5 mg tablet (Proscar) 5 mg PO QAM #30 tabs 12/23/24 02/16/25 Rx furosemide 80 mg tablet 80 mg PO BID #60 tabs 12/23/24 02/16/25 Rx sevelamer carbonate 0.8 gram oral 3.2 g PO TIDWM 30 days #60 ea 12/23/24 02/16/25 Rx powder packet tamsulosin 0.4 mg capsule 0.4 mg PO QHS #30 caps 12/23/24 02/16/25 Rx acetaminophen 325 mg tablet 650 mg (2 x 325 mg) PO Q4H PRN 01/10/25 02/16/25 Rx Mild Pain (1-3) Or Fever #60 tabs pentoxifylline 400 mg 400 mg PO QPM 01/29/25 02/16/25 History tablet,extended release acetaminophen 300 mg-codeine 30 mg 1 tablet PO Q6H PRN pain, severe 02/16/25 02/16/25 History tablet amlodipine 10 mg tablet 10 mg PO DAILY 02/16/25 02/16/25 History bisacodyl 10 mg rectal suppository 10 mg RECTAL DAILY PRN constipation 02/16/25 02/16/25 History (Laxative (bisacodyl)) cyclobenzaprine 10 mg tablet 10 mg PO TID 02/16/25 02/16/25 History gabapentin 100 mg capsule 100 mg PO TID 02/16/25 02/16/25 History liraglutide 0.6 mg/0.1 mL (18 mg/3 0.6 mg subcut DAILY 02/16/25 02/16/25 History mL) subcutaneous pen injector liraglutide 0.6 mg/0.1 mL (18 mg/3 1.2 mg subcut DAILY 02/16/25 02/16/25 History mL) subcutaneous pen injector loratadine 10 mg capsule (Allergy 10 mg PO DAILY PRN itching 02/16/25 02/16/25 History Relief (loratadine)) magnesium citrate (Citroma oral 296 ml PO .AM PRN constipation 02/16/25 02/16/25 History solution) magnesium hydroxide 400 mg/5 mL 30 ml PO HS PRN constipation 02/16/25 02/16/25 History oral suspension (Milk of Magnesia) silver sulfadiazine 1 % topical 1 applic topical QAM 02/16/25 02/16/25 History cream (Silvadene) sodium phosphates 19 gram-7 118 ml RECTAL DAILY PRN 02/16/25 02/16/25 History gram/118 mL enema (Fleet Enema) constipation vitamin B complex 1 cap PO DAILY 02/16/25 02/16/25 History Allergies Allergy/AdvReac Type Severity Reaction Status Date / Time No Known Allergies Allergy Verified 02/16/25 05:50 Vital Signs Vital Signs Temp Pulse Resp BP Pulse Ox O2 Del Method O2 Flow Rate 02/16/25 09:08 76 02/16/25 08:14 94 Nasal Cannula 3 02/16/25 08:00 75 02/16/25 08:00 80 20 90 Nasal Cannula 3 02/16/25 08:00 97.5 F L 76 18 136/70 98 02/16/25 06:00 74 02/16/25 04:00 76 20 91 Nasal Cannula 3 02/16/25 04:00 97.8 F 76 20 157/70 H 91 02/16/25 04:00 81 02/16/25 02:00 73 02/16/25 01:34 75 02/16/25 01:30 75 18 97 Nasal Cannula 3 02/16/25 01:20 97.4 F L 75 18 151/70 H 97 02/15/25 23:57 91 Nasal Cannula 4 02/15/25 19:15 78 18 147/88 H 91 02/15/25 18:55 97.7 F 78 16 151/71 H Exam 2 Narrative: GENERAL APPEARANCE: elderly but well developed well nourished male in no acute distress HEENT: normocephalic, atraumatic, normal conjunctiva and sclera, nares patient NECK: no lymphadenopathy, thyromegaly, or JVD MOUTH: normal lips, teeth, and gums CARDIOVASCULAR: RRR, normal S1 and S2, no rub RESPIRATORY: coarse breath sounds with a few bibasilar crackles ABDOMEN: soft, nontender, nondistended, positive bowel sounds present EXTREMITIES: no evidence of cyanosis, clubbing; trace - 1+ edema in UEs and LEs NEUROLOGICAL: alert and oriented x 3; CN II - XII intact bilaterally; no focal deficits noted Results Lab Results 02/16/25 04:51 02/16/25 04:51 Lab results: Most recent lab results Calcium 10.6 mg/dL (8.4-10.2) H 02/16/25 04:51 Magnesium 2.2 mg/dL (1.6-2.3) 02/15/25 20:56
[2025-02-16] MEDS: FUROSEMIDE 80 MG TABLET PO ×2 (09:17→17:29)
[2025-02-16] MEDS: amLODIPine BESYLATE 10 MG TABLET PO (09:17)
[2025-02-16] MEDS: ASPIRIN 81 MG ENTERIC TABLET PO (09:17)
[2025-02-16] MEDS: LORATADINE 10 MG TABLET PO (09:17)
[2025-02-16] MEDS: FINASTERIDE 5 MG TABLET PO (09:17)
[2025-02-16] MEDS: carvediloL 25 MG TABLET PO ×2 (09:18→17:28)
[2025-02-16] MEDS: GABAPENTIN 100 MG CAPSULE PO ×3 (09:18→17:29)
[2025-02-16] MEDS: CINACALCET 30 MG TABLET 90 MG PO (09:19)
[2025-02-16] MEDS: HEPARIN SODIUM 5,000 UNITS/ML VIAL 5000 UNITS SUB-Q ×2 (09:20→21:07)
[2025-02-16] MEDS: DOXYCYCLINE 100 MG/NS 100 ML 100 MG/100 ML BAG IVPB ×2 (09:44→21:07)
[2025-02-16 10:14] LABS: Procalcitonin 0.5 ng/mL
[2025-02-16 10:43] LABS: MRSA (PCR) NOT DETECTED (NOT DETECTE)
[2025-02-16] MEDS: VANCOMYCIN 1,750 MG/NS 500 ML 1,750 MG/500 ML BAG 250 MG IVPB (11:03)
[2025-02-16 12:24] LABS: Glucose Point of Care 101 mg/dl (65-105)
--- NOTE | 2025-02-16 12:28 | P.CONNEU_ITS ---
Assessment and Plan Assessment and plan (1) Diabetic polyneuropathy: Code(s): E11.42 - Type 2 diabetes mellitus with diabetic polyneuropathy Status: Acute (2) End-stage renal disease on hemodialysis: Code(s): N18.6 - End stage renal disease; Z99.2 - Dependence on renal dialysis Status: Acute (3) Pressure ulcer of left heel, unstageable: Code(s): L89.620 - Pressure ulcer of left heel, unstageable Status: Acute Plan the patient is unable to raise his arm above his head because of shoulder problem. Otherwise I did not see any proximal muscle weakness. He has generalized deconditioning and he has not walked for 5 years. He most likely has diabetic polyneuropathy which is quite understandable. I will check his serum B12 folic acid level and vitamin-D and methylmalonic acid level and homocystine level. Consult date: 02/16/25 HPI: Sam Morrissey is a 79 year old male With history of diabetes mellitus, chronic kidney disease, cardiac pacemaker in place, peripheral vascular disease, pulmonary edema currently in long term is admitted to the hospital with generalized weakness. I have been asked to see him for complaints of generalized weakness. He states that he cannot lift his arm above his head. However he also has not been able to walk for last 5 years. He requires assistance from the long term staff for activities of self-care such as going to bathroom or changing clothes or for shower. It appears that he can feed himself. He is in fair spirits and is cooperative. He is unable to tell me for how long he had diabetes. He was also seen by Dr. Mcintosh on 01/06/2025 with history of confusion and weakness. Unable to speak for 2 hours. Patient tells me that he has been in long term for last 2 months however prior to that he was at home with his brother. His hands surgery for peripheral vascular disease in his lower limbs and a cardiac pacemaker put in October this year. There is history of smoking for [address] angiogram of the head and neck performed in December of this year did not show any significant narrowing of the carotid arteries but there was severe stenosis the left vertebral artery in the lower segment. The patient has been on hemodialysis. An EEG was performed which did not show any significant abnormalities. Review of Systems 2 Review of Systems: All systems reviewed & are unremarkable except as noted in HPI and below PMFSH Past Medical History Medical History (Updated 02/16/25 @ 12:39 by Cole Murguia MD) Bilateral shoulder pain Diabetic polyneuropathy Diabetes Coronary artery disease Chronic obstructive pulmonary disease Diabetic peripheral neuropathy Anemia Atrial fibrillation Chronic neck and back pain Insomnia History of nephrolithiasis Sinus pause (~09/2024) Obstructive sleep apnea Intolerant to CPAP Insulin dependent type 2 diabetes mellitus (~2009) Benign prostatic hyperplasia Peripheral vascular disease (~03/2023) Internal hemorrhoid, bleeding End-stage renal disease on hemodialysis DVT dialysis Sunday History of colon polyps Environmental allergies Vitamin D deficiency Dyslipidemia Essential (primary) hypertension Surgical History Surgical History History of cardiac pacemaker (~10/2024) Med[employer] pacemaker placed due to symptomatic sinus pauses causing syncope performed at [facility] Status post cataract extraction of both eyes with insertion of intraocular lens History of colonoscopy with polypectomy History of hemorrhoidectomy (~01/12/24) Anorectal evaluation under anesthesia and excisional hemorrhoidectomy x3 12/14/23 SAW S/P peripheral artery angioplasty (~03/2023) status post balloon angioplasty of bilateral common and external iliac arteries status post left iliofemoral endarterectomy Arteriovenous fistula of left upper extremity (~2017) History of appendectomy (~1962) History of coronary artery bypass graft (~2013) Family History Family History Mother Diabetes mellitus Acute myocardial infarction Family history of congestive heart failure Father Hypertension Social History Social History Social History: The patient is . He and his brother live together prior to his recent hospitalization and placement in to [facility]. He is retired after 26 years of serving in the [employer]. He has 4 children. He used to smoke 1.5-2 packs of cigarettes per day but quit smoking in approximately 2009. He will on a rare occasion drink an alcoholic beverage maybe 2 to 3 times a year. He denies illicit substance use. Surrogate medical decision maker: Wilian Morrissey, sibling. Code status: Full code. Caffeine- daily Smoking packs per day: 1.5 Smoking cigarettes per day: 30.0 Years smoked: 44 Smoking pack-years: 66.00 Smoking status: Former smoker Second hand tobacco smoke exposure: No Alcohol intake: current Alcohol use details: Maybe 2-3 per year Substance use: unknown Substance use type: unknown Do You Feel Safe in your Home?: Yes Lack of Transportation: No Lack of Food: Never True Current Housing: I Have Housing Concerned About Future Housing: No Difficulty Paying Gas/Electric Bills: No Difficulty Paying for Meds: No Currently Unemployed: No Education: Associate Degree Difficulty w/ Childcare or Family Care: No Living arrangements: with family Occupation/Education: retired Additional occupation/education comments: Retired from the [employer]. Spiritual care concerns: No Agree to blood products: Yes Meds Home Medications and Allergies Home Medications ?Medication ?Instructions ?Recorded ?Confirmed ?Type aspirin 81 mg tablet,delayed 81 mg PO DAILY 10/31/21 02/16/25 History release carvedilol 25 mg tablet 25 mg PO BID 10/31/21 02/16/25 History insulin lispro 100 unit/mL 4 unit subcut .TIDAC 10/31/21 02/16/25 History subcutaneous pen loratadine 10 mg tablet (Claritin) 10 mg PO DAILY 10/31/21 02/16/25 History insulin glargine 100 unit/mL (3 6 unit subcut QPM 11/07/23 02/16/25 History mL) subcutaneous pen (Lantus Solostar U-100 Insulin) cinacalcet 90 mg PO DAILY 12/12/23 02/16/25 History atorvastatin 20 mg tablet 20 mg PO HS 12/21/24 02/16/25 History finasteride 5 mg tablet (Proscar) 5 mg PO QAM #30 tabs 12/23/24 02/16/25 Rx furosemide 80 mg tablet 80 mg PO BID #60 tabs 12/23/24 02/16/25 Rx sevelamer carbonate 0.8 gram oral 3.2 g PO TIDWM 30 days #60 ea 12/23/24 02/16/25 Rx powder packet tamsulosin 0.4 mg capsule 0.4 mg PO QHS #30 caps 12/23/24 02/16/25 Rx acetaminophen 325 mg tablet 650 mg (2 x 325 mg) PO Q4H PRN 01/10/25 02/16/25 Rx Mild Pain (1-3) Or Fever #60 tabs pentoxifylline 400 mg 400 mg PO QPM 01/29/25 02/16/25 History tablet,extended release acetaminophen 300 mg-codeine 30 mg 1 tablet PO Q6H PRN pain, severe 02/16/25 02/16/25 History tablet amlodipine 10 mg tablet 10 mg PO DAILY 02/16/25 02/16/25 History bisacodyl 10 mg rectal suppository 10 mg RECTAL DAILY PRN constipation 02/16/25 02/16/25 History (Laxative (bisacodyl)) cyclobenzaprine 10 mg tablet 10 mg PO TID 02/16/25 02/16/25 History gabapentin 100 mg capsule 100 mg PO TID 02/16/25 02/16/25 History liraglutide 0.6 mg/0.1 mL (18 mg/3 0.6 mg subcut DAILY 02/16/25 02/16/25 History mL) subcutaneous pen injector liraglutide 0.6 mg/0.1 mL (18 mg/3 1.2 mg subcut DAILY 02/16/25 02/16/25 History mL) subcutaneous pen injector loratadine 10 mg capsule (Allergy 10 mg PO DAILY PRN itching 02/16/25 02/16/25 History Relief (loratadine)) magnesium citrate (Citroma oral 296 ml PO .AM PRN constipation 02/16/25 02/16/25 History solution) magnesium hydroxide 400 mg/5 mL 30 ml PO HS PRN constipation 02/16/25 02/16/25 History oral suspension (Milk of Magnesia) silver sulfadiazine 1 % topical 1 applic topical QAM 02/16/25 02/16/25 History cream (Silvadene) sodium phosphates 19 gram-7 118 ml RECTAL DAILY PRN 02/16/25 02/16/25 History gram/118 mL enema (Fleet Enema) constipation vitamin B complex 1 cap PO DAILY 02/16/25 02/16/25 History Allergies Allergy/AdvReac Type Severity Reaction Status Date / Time No Known Allergies Allergy Verified 02/16/25 05:50 Vital Signs Vital Signs - 24 hr 02/15/25 18:55 02/15/25 19:15 02/15/25 23:57 Temperature 97.7 F Pulse Rate 78 78 Respiratory Rate 16 18 Blood Pressure 151/71 H 147/88 H Pulse Oximetry 91 91 Oxygen Delivery Nasal Cannula Oxygen Flow Rate 4 Fraction of Inspired Oxygen 02/16/25 01:20 02/16/25 01:30 02/16/25 01:34 Temperature 97.4 F L Pulse Rate 75 75 75 Respiratory Rate 18 18 Blood Pressure 151/70 H Pulse Oximetry 97 97 Oxygen Delivery Nasal Cannula Oxygen Flow Rate 3 Fraction of Inspired Oxygen 02/16/25 02:00 02/16/25 04:00 02/16/25 04:00 Temperature 97.8 F Pulse Rate 73 81 76 Respiratory Rate 20 Blood Pressure 157/70 H Pulse Oximetry 91 Oxygen Delivery Oxygen Flow Rate Fraction of Inspired Oxygen 02/16/25 04:00 02/16/25 06:00 02/16/25 08:00 Temperature 97.5 F L Pulse Rate 76 74 76 Respiratory Rate 20 18 Blood Pressure 136/70 Pulse Oximetry 91 98 Oxygen Delivery Nasal Cannula Oxygen Flow Rate 3 Fraction of Inspired Oxygen 02/16/25 08:00 02/16/25 08:00 02/16/25 08:14 Temperature Pulse Rate 80 75 Respiratory Rate 20 Blood Pressure Pulse Oximetry 90 94 Oxygen Delivery Nasal Cannula Nasal Cannula Oxygen Flow Rate 3 3 Fraction of Inspired Oxygen 32 02/16/25 09:18 02/16/25 10:00 02/16/25 12:00 Temperature Pulse Rate 76 74 79 Respiratory Rate 20 Blood Pressure Pulse Oximetry 91 Oxygen Delivery Nasal Cannula Oxygen Flow Rate 3 Fraction of Inspired Oxygen 02/16/25 12:00 Temperature Pulse Rate 79 Respiratory Rate Blood Pressure Pulse Oximetry Oxygen Delivery Oxygen Flow Rate Fraction of Inspired Oxygen Exam 2 Narrative: Fully conscious alert oriented to self time place and person. No aphasia or dysarthria. Examination of head and neck was unremarkable. No evidence of external trauma. Cranial nerves show pupils were equal and reactive to light. Visual portillo and extraocular movements were intact. There is no facial asymmetry. Facial sensation was intact. Tongue was midline. Other cranial nerves within normal limits. Motor system he is not able to raise his arms above his head due to the shoulder joint however his deltoid and biceps and triceps and wrist extensors and finger grasp appear to be within normal range. Was able to flex at hip and extend at the knees and also plantar flex and extend fairly well. No evidence for spinal cord he chooses there is no Sensory level noted. Deep tendon reflexes are Augusto decreased at knees As well as biceps and triceps. Results Labs 02/16/25 04:51 02/16/25 04:51 Labs: Short CBC 02/15/25 02/16/25 Range/Units 20:56 04:51 WBC 5.0 5.7 (4.5-10.0) K/mm3 Hgb 9.7 L 9.2 L (14.0-18.0) g/dL Hct 33.4 L 30.7 L (42.0-52.0) % Plt Count 199 190 (150-375) k/mm3 BMP 02/15/25 02/16/25 20:56 04:51 Sodium 134 L 134 L Potassium 4.5 4.9 Chloride 89 L 91 L Carbon Dioxide 35 H 34 H BUN 31 H D 34 H Creatinine 5.12 H 5.58 H Glucose 136 H 108 Calcium 10.4 H 10.6 H Cardiac Enzymes 02/15/25 02/16/25 02/16/25 Range/Units 20:56 02:08 04:51 Troponin I 0.067 H* 0.060 H* 0.062 H* (0.000-0.034) ng/mL Liver Function 02/15/25 Range/Units 20:56 Total Bilirubin 0.3 (0.2-1.3) mg/dL AST 16 L (17-59) U/L ALT 12 (6-50) U/L Alkaline Phosphatase 79 (38-126) U/L Albumin 4.0 (3.5-5.1) g/dL Urine 02/15/25 Range/Units 23:27 Urine Color Yellow (Yellow) Urine Appearance Clear (Clear) Urine pH 8.0 (5.0-9.0) Ur Specific [place] 1.011 (1.001-1.035) Urine Protein 3+ H (Negative) mg/dL Urine Glucose (UA) Trace H (Negative) mg/dL
[2025-02-16 17:01] LABS: Glucose Point of Care 133 mg/dl (65-105)
[2025-02-16] MEDS: INSULIN ASPART (*BKC) 100 UNITS/ML SUB-Q (17:29)
[2025-02-16] MEDS: PENTOXIFYLLINE 400 MG TABCR PO (17:29)
[2025-02-16 20:16] LABS: Glucose Point of Care 104 mg/dl (65-105)
[2025-02-16] MEDS: TAMSULOSIN HCL 0.4 MG CAPSULE PO (21:07)
[2025-02-16] MEDS: ATORVASTATIN 20 MG TABLET PO (21:07)
[2025-02-17] VITALS (31 sets, daily range): BP systolic 109–166; BP diastolic 51–93; PULSE 68–80; RESP 16–20; TEMP 36.1–37.7; O2SAT 94–100
[2025-02-17 04:34] LABS: Basophils Absolute Auto 0.1 K/mm3 (0.0-0.1); Basophils Percent Auto 1.3 % (0.2-1.2); Eosinophils Absolute Auto 0.1 K/mm3 (0-0.3); Eosinophils Percent Auto 2.7 % (0-4.4); Hematocrit 28.5 % (42.0-52.0); Hemoglobin 8.3 g/dL (14.0-18.0); Immature Granulocyte Absolute 0.02 K/mm3 (0.00-0.031); Immature Granulocyte Percent A 0.4 % (0-0.5); Lymphocytes Absolute Auto 0.68 K/mm3 (0.9-3.2); Mean Corpuscular HGB Conc 29.1 g/dl (32-36); Mean Corpuscular Hemoglobin 26.9 pg (26-34); Mean Corpuscular Volume 92.5 fl (80-100); Mean Platelet Volume 11.4 fl (7.4-10.4); Monocytes Absolute Auto 0.6 K/mm3 (0.1-0.6); Monocytes Percent Auto 11.2 % (2.6-8.5); Neutrophils Absolute Auto 3.8 K/mm3 (1.3-6.7); Neutrophils Percent Auto 71.4 % (45.5-73.1); Platelet Count Result 189 k/mm3 (150-375); Red Blood Count 3.08 M/mm3 (4.6-6.20); Red Cell Distribution Width 18.7 % (11.5-14.5); White Blood Count 5.3 K/mm3 (4.5-10.0)
[2025-02-17 04:57] LABS: Alanine Aminotransferase 9 U/L (6-50); Albumin Level 3.4 g/dL (3.5-5.1); Alkaline Phosphatase 56 U/L (38-126); Anion Gap 7 mmol/L (4-12); Aspartate Amino Transferase 13 U/L (17-59); Bilirubin,Total 0.3 mg/dL (0.2-1.3); Blood Urea Nitrogen 45 mg/dL (9-20); Calcium 10.1 mg/dL (8.4-10.2); Carbon Dioxide 35 mmol/L (22-30); Chloride 89 mmol/L (98-107); Estimated CRCL calculation 8 ml/min; Estimated Glomerular Filt Rate 8; Glucose 88 mg/dL (65-110); Magnesium 2.3 mg/dL (1.6-2.3); Phosphorus 7.3 mg/dL (2.5-4.5); Potassium 4.9 mmol/L (3.4-5.0); Sodium 131 mmol/L (137-145)
[2025-02-17 05:01] LABS: Platelet Estimate Adequate (Adequate)
[2025-02-17 05:07] LABS: Anisocytosis 1+; Hypochromasia 1+; Schistocytes None Seen
[2025-02-17 05:24] LABS: Procalcitonin 0.5 ng/mL; Vitamin D 25 Hydroxy 25.2 ng/mL
[2025-02-17 05:38] LABS: Hepatitis B Surface Antigen Negative (Negative)
[2025-02-17 05:59] LABS: Folic Acid 6.3 ng/mL (2.76->20)
[2025-02-17 07:13] LABS: Hepatitis B Surface Anti Res Indeterminate
[2025-02-17 08:04] LABS: Glucose Point of Care 82 mg/dl (65-105)
[2025-02-17] MEDS: SEVELAMER CARBONATE 0.8 GM ORAL POWDER PACKET 3.2 GM PO ×2 (08:27→18:35)
[2025-02-17] MEDS: DOXYCYCLINE 100 MG/NS 100 ML 100 MG/100 ML BAG IVPB ×2 (08:27→20:50)
[2025-02-17] MEDS: ASPIRIN 81 MG ENTERIC TABLET PO (08:27)
[2025-02-17] MEDS: GABAPENTIN 100 MG CAPSULE PO ×2 (08:28→17:40)
[2025-02-17] MEDS: LORATADINE 10 MG TABLET PO (08:28)
[2025-02-17] MEDS: amLODIPine BESYLATE 10 MG TABLET PO (08:28)
[2025-02-17] MEDS: carvediloL 25 MG TABLET PO ×2 (08:28→17:40)
[2025-02-17] MEDS: CINACALCET 30 MG TABLET 90 MG PO (08:28)
[2025-02-17] MEDS: FINASTERIDE 5 MG TABLET PO (08:28)
[2025-02-17] MEDS: FUROSEMIDE 80 MG TABLET PO ×2 (08:29→17:40)
[2025-02-17] MEDS: INSULIN ASPART (*BKC) 100 UNITS/ML SUB-Q ×2 (08:29→18:25)
--- NOTE | 2025-02-17 09:04 | P.PNIM_ITS ---
Progress Note: A&P Assessment and Plan (1) IDDM (insulin dependent diabetes mellitus): Status: Chronic (2) Pressure ulcer of left heel, unstageable: Code(s): L89.620 - Pressure ulcer of left heel, unstageable Status: Acute (3) Pneumonia: Qualifiers: Laterality: unspecified laterality Lung location: unspecified part of lung Pneumonia type: due to unspecified organism Qualified Code(s): J18.9 - Pneumonia, unspecified organism Code(s): J18.9 - Pneumonia, unspecified organism Status: Acute (4) Seizure disorder: Code(s): G40.909 - Epilepsy, unspecified, not intractable, without status epilepticus Status: Acute (5) Acute hypoxic respiratory failure: Code(s): J96.01 - Acute respiratory failure with hypoxia Status: Acute (6) Type 2 diabetes mellitus, with long-term current use of insulin: Qualifiers: Diabetes mellitus complication detail: with polyneuropathy Diabetes mellitus complication status: with neurologic complications Qualified Code(s): E11.42 - Type 2 diabetes mellitus with diabetic polyneuropathy; 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 Code(s): E11.9 - Type 2 diabetes mellitus without complications; 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 Status: Acute (7) CAD in [place] artery: Code(s): I25.10 - Atherosclerotic heart disease of [place] coronary artery without angina pectoris Status: Acute (8) End-stage renal disease on hemodialysis: Code(s): N18.6 - End stage renal disease; Z99.2 - Dependence on renal dialysis Status: Acute (9) Weakness: Code(s): R53.1 - Weakness Status: Acute (10) Elevated troponin: Code(s): R79.89 - Other specified abnormal findings of blood chemistry Status: Acute (11) Pulmonary edema: Qualifiers: Chronicity: acute Qualified Code(s): J81.0 - Acute pulmonary edema Code(s): J81.1 - Chronic pulmonary edema Status: Acute (12) Obstructive sleep apnea: Code(s): G47.33 - Obstructive sleep apnea (adult) (pediatric) Status: Acute Plan 79-year-old male with a past medical history of end-stage renal disease on dialysis Sunday, coronary artery disease status post CABG 2013, cardiac pacemaker due to sinus pauses October 2024, peripheral artery st atus post angioplasty and endarterectomy bilateral lower extremities, obstructive sleep apnea intolerant to CPAP, COPD, insulin-dependent diabetes mellitus, unstageable decubitus ulcer right heel with eschar among other comorbidities who presented to the ER via EMS from [facility] facility due to weakness and blurred vision. The patient reports that in the late afternoon he felt as if he could not move any of his extremities. The [facility] staff at also reported the patient had had some blurred vision patient did not mention mention vision changes at the time of my evaluation. On the scene the patient was found to be hypoxic. General weakness and blurred vision Patient presented weakness and stated he could not move any of his extremities for about [address] head shows no acute intracranial issues Possible due to hypoxemia needs to rule out neuro issues, consult neurologist for evaluation treatment Appreciate neurology's consultation, Neurology considers possible restriction on the shoulder pain Acute respiratory failure with hypoxemia Possible due to CHF exacerbation pulmonary edema and pneumonia Patient received Lasix in the ED, Consult professor of musicology for dialysis Continue O2 therapy to keep pulse ox above 90 Patient is on 3 L oxygen via nasal cannular Community-acquired pneumonia X-ray suggest bilateral basal pneumonia Patient was placed on ceftriaxone and doxy IV Follow-up procalcitonin level End-stage renal disease on hemodialysis Overloaded upon arrival Consult professor of musicology for dialysis Chronic anemia No obvious bleeding Resulting from chronic renal failure Management per professor of musicology Type 2 diabetes Patient is on Lantus 6 units, lispro 5 units a.c. and sliding scale Controlled Subjective Date/time seen: 02/17/25 09:04 Interval history: I saw exam patient today the patient was on hemodialysis. Patient feels dyspnea improved significantly, no new focal deficits. Also denies chest pain abdomen pain nausea vomiting diarrhea Exam Narrative: GENERAL: Pleasant, in no acute distress. Well-nourished. - EYES: EOMI. Anicteric. - HENT: Moist mucous membranes. - LUNGS: Coarse breath sound bilaterall y - CARDIOVASCULAR: Regular rate and rhyth m. No murmur. No JVD. - ABDOMEN: Soft, non-tender and non-dist ended. No palpable masses. - EXTREMITIES: No edema. Peripheral puls es 2+. Non-tender. - NEUROLOGIC: No focal neurological defi cits. CN II-XII grossly intact, able to move all extremities - PSYCHIATRIC: Awake, Alert and oriented x 3. Appropriate mood and affect. - SKIN: No rashes or lesions. Warm. - LYMPH: No cervical lymphadenopathy. Objective Data Vital Signs Vital Signs: Vital Signs - 24 hr 02/16/25 09:18 02/16/25 10:00 02/16/25 12:00 Temperature 98 F Pulse Rate 76 74 75 Respiratory Rate 20 Blood Pressure 163/96 H Pulse Oximetry 98 Oxygen Delivery Oxygen Flow Rate 02/16/25 12:00 02/16/25 12:00 02/16/25 14:00 Temperature Pulse Rate 79 79 70 Respiratory Rate 20 Blood Pressure Pulse Oximetry 91 Oxygen Delivery Nasal Cannula Oxygen Flow Rate 3 02/16/25 16:00 02/16/25 16:00 02/16/25 16:00 Temperature 98.3 F Pulse Rate 70 77 69 Respiratory Rate 20 20 Blood Pressure 146/67 H Pulse Oximetry 92 95 Oxygen Delivery Nasal Cannula Oxygen Flow Rate 3 02/16/25 17:28 02/16/25 18:00 02/16/25 20:00 Temperature 98.3 F Pulse Rate 79 77 74 Respiratory Rate 18 Blood Pressure 157/70 H Pulse Oximetry 97 Oxygen Delivery Oxygen Flow Rate 02/16/25 20:00 02/16/25 20:00 02/16/25 22:00 Temperature Pulse Rate 73 76 Respiratory Rate Blood Pressure Pulse Oximetry 97 Oxygen Delivery Nasal Cannula Oxygen Flow Rate 3 02/16/25 23:48 02/17/25 00:00 02/17/25 00:00 Temperature 97.5 F L Pulse Rate 75 80 Respiratory Rate 20 Blood Pressure 158/76 H Pulse Oximetry 96 96 Oxygen Delivery Nasal Cannula Oxygen Flow Rate 3 02/17/25 02:00 02/17/25 03:24 02/17/25 03:34 Temperature 97.9 F Pulse Rate 80 75 Respiratory Rate 20 Blood Pressure 141/65 H Pulse Oximetry 98 100 Oxygen Delivery Non-Rebreather Mask Oxygen Flow Rate 10 02/17/25 04:00 02/17/25 06:00 02/17/25 08:00 Temperature 98.4 F Pulse Rate 73 74 80 Respiratory Rate 16 Blood Pressure 145/61 H Pulse Oximetry 95 Oxygen Delivery Oxygen Flow Rate Intake/Output Intake/Output: Intake & Output 02/14/25 02/15/25 02/16/25 02/17/25 23:59 23:59 23:59 23:59 Intake Total 50 1450 200 Output Total 350 Balance 50 1100 200 Meds/Results Medications: Active Medications Generic Name Dose Route Start Last Admin Trade Name [place] PRN Reason Stop Dose Admin Acetaminophen 650 mg 02/15/25 23:52 Acetaminophen 325 Mg Tablet PO Q4H PRN Mild Pain (1-3) or Fever Amlodipine Besylate 10 mg 02/16/25 09:00 02/17/25 08:28 Amlodipine Besylate 10 Mg Tablet PO 10 mg DAILY DAVID Administration Aspirin 81 mg 02/16/25 09:00 02/17/25 08:27 Aspirin 81 Mg Enteric Tablet PO 81 mg DAILY DAVID Administration Atorvastatin Calcium 20 mg 02/16/25 21:00 02/16/25 21:07 Atorvastatin 20 Mg Tablet PO 20 mg HS DAVID Administration Bisacodyl 10 mg 02/16/25 07:03 Bisacodyl 10 Mg Suppository RECTAL DAILY PRN constipation Carvedilol 25 mg 02/16/25 08:00 02/17/25 08:28 Carvedilol 25 Mg Tablet PO 25 mg BIDWM DAVID Administration Cinacalcet 90 mg 02/16/25 09:00 02/17/25 08:28 Cinacalcet 30 Mg Tablet PO 03/18/25 08:59 90 mg DAILY DAVID Administration Dextrose 12.5 gm 02/16/25 08:20 Dextrose 50% 25 Gm/50 Ml Syringe IV PUSH PRN PRN Hypoglycemia Protocol Epoetin David-epbx 10,000 units 02/17/25 18:28 Epoetin David-Epbx 10,000 Units/Ml Vial IV PUSH 02/17/25 18:29 ONCE ONE Finasteride 5 mg 02/16/25 09:00 02/17/25 08:28 Finasteride 5 Mg Tablet PO 5 mg QAM DAVID Administration Furosemide 80 mg 02/16/25 09:00 02/17/25 08:29 Furosemide 80 Mg Tablet PO 80 mg BID DAVID Administration Gabapentin 100 mg 02/16/25 09:00 02/17/25 08:28 Gabapentin 100 Mg Capsule PO 100 mg TID DAVID Administration Glucagon 1 mg 02/16/25 08:20 Glucagon For Inj 1 Mg Vial IM PRN PRN Hypoglycemia Protocol Glucose 15 gm 02/16/25 08:20 Glucose Oral Gel 15 Gm Of Glucse In 37.5 Gm Tube PO PRN PRN Hypoglycemia Protocol Heparin Sodium (Porcine) 5,000 units 02/16/25 09:00 02/16/25 21:07 Heparin Sodium 5,000 Units/Ml Vial SUB-Q 5,000 units Q12HR DAVID Administration Dextrose 1,000 mls @ 100 mls/hr 02/16/25 08:20 Dextrose 5% 1,000 Ml IVPB PRN PRN Hypoglycemia Protocol Ceftriaxone Sodium 1 gm in 50 mls @ 100 mls/hr 02/16/25 08:30 02/17/25 08:27 Rocephin 1 Gm/Ns 50 Ml IVPB 100 mls/hr Q24H DAVID Administration Doxycycline Hyclate 100 mg in 100 mls @ 100 mls/hr 02/16/25 09:00 02/17/25 08:27 Vibramycin 100 Mg/Ns 100 Ml IVPB 100 mls/hr Q12H DAVID Administration Albumin Human 50 mls @ 999 mls/hr 02/17/25 06:27 Albutein IVPB 03/19/25 06:26 Q10M PRN HYPOTENSION Insulin Aspart 4 units 02/16/25 08:00 02/17/25 08:29 Insulin Aspart (*Bkc) 100 Units/Ml SUB-Q 4 units TIDWM DAVID Administration Insulin Aspart 2 - 5 units 02/16/25 12:00 02/17/25 08:09 Insulin Aspart (*Bkc) 100 Units/Ml SUB-Q Not Given TIDWM DAVID Protocol Insulin Glargine 6 units 02/16/25 18:00 02/16/25 17:30 Insulin Glargine (*Bkc) 100 Units/Ml SUB-Q 6 units QPM DAVID Administration Loratadine 10 mg 02/16/25 09:00 02/17/25 08:28 Loratadine 10 Mg Tablet PO 10 mg DAILY DAVID Administration Loratadine 10 mg 02/16/25 07:03 Loratadine 10 Mg Tablet PO DAILY PRN itching Pentoxifylline 400 mg 02/16/25 18:00 02/16/25 17:29 Pentoxifylline 400 Mg Tabcr PO 400 mg QPM DAVID Administration Sevelamer Carbonate 3.2 gm 02/16/25 08:00 02/17/25 08:27 Sevelamer Carbonate 0.8 Gm Oral Powder Packet PO 3.2 gm TIDWM DAVID Administration Silver Sulfadiazine 1 applic 02/16/25 09:00 02/16/25 11:14 Silver Sulfadiazine 1% Cr 50 Gm Jar (*Bkc) TOPICAL Not Given QAM [facility] Tamsulosin HCl 0.4 mg 02/16/25 21:00 02/16/25 21:07 Tamsulosin Hcl 0.4 Mg Capsule PO 0.4 mg QHS DAVID Administration Radiology Results: ITS Impressions Chest X-Ray 02/15/25 19:22 IMPRESSION: Cardiomegaly with highly suggestive cardiac decompensation and pulmonary edema. Bibasilar opacification suggestive of atelectasis versus pneumonia with left pleural effusion. Head CT 02/15/25 19:38 IMPRESSION: No acute intracranial findings. Labs Labs: Laboratory Results - last 24 hr 02/16/25 02/16/25 02/16/25 04:51 08:58 12:20 WBC RBC Hgb Hct MCV MCH MCHC RDW Plt Count MPV Immature Gran % (Auto) Neut % (Auto) Lymph % (Auto) [place] % (Auto) Eos % (Auto) Baso % (Auto) Lymph # (Auto) [place] # (Auto) Eos # (Auto) Baso # (Auto) Abs Immat Gran (auto) Absolute Neuts (auto) Absolute Nucleated RBC Band Neutrophils % Nucleated RBC % Platelet Estimate Hypochromasia Anisocytosis Schistocytes Sodium Potassium Chloride Carbon Dioxide Anion Gap BUN Creatinine Estim Creat Clear Calc Estimated GFR Glucose POC Capillary Glucose 101 Calcium Phosphorus Magnesium Total Bilirubin AST ALT Alkaline Phosphatase Total Protein Albumin Vitamin B12 Vitamin D 25-Hydroxy Folate Procalcitonin 0.5 Nasal MRSA (PCR) Not detected Hep Bs Antigen Hep Bs Antibody 02/16/25 02/16/25 02/17/25 16:02 20:13 04:07 WBC 5.3 RBC 3.08 L Hgb 8.3 L Hct 28.5 L MCV 92.5 MCH 26.9 MCHC 29.1 L RDW 18.7 H Plt Count 189 MPV 11.4 H Immature Gran % (Auto) 0.4 Neut % (Auto) 71.4 Lymph % (Auto) 13.0 L [place] % (Auto) 11.2 H Eos % (Auto) 2.7 Baso % (Auto) 1.3 H Lymph # (Auto) 0.68 L [place] # (Auto) 0.6 Eos # (Auto) 0.1 Baso # (Auto) 0.1 Abs Immat Gran (auto) 0.02 Absolute Neuts (auto) 3.8 Absolute Nucleated RBC 0.000 Band Neutrophils % Not Reportable Nucleated RBC % 0.0 Platelet Estimate Adequate Hypochromasia 1+ Anisocytosis 1+ Schistocytes None seen Sodium 131 L Potassium 4.9 Chloride 89 L Carbon Dioxide 35 H Anion Gap 7 BUN 45 H D Creatinine 6.86 H Estim Creat Clear Calc 8 Estimated GFR 8 L Glucose 88 POC Capillary Glucose 133 H 104 Calcium 10.1 Phosphorus 7.3 H Magnesium 2.3 Total Bilirubin 0.3 AST 13 L ALT 9 Alkaline Phosphatase 56 Total Protein 6.0 L Albumin 3.4 L Vitamin B12 694.0 Vitamin D 25-Hydroxy 25.2 Folate 6.3 Procalcitonin 0.5 Nasal MRSA (PCR) Hep Bs Antigen Negative Hep Bs Antibody Indeterminate 02/17/25 07:43 WBC RBC Hgb Hct MCV MCH MCHC RDW Plt Count MPV Immature Gran % (Auto) Neut % (Auto) Lymph % (Auto) [place] % (Auto) Eos % (Auto) Baso % (Auto) Lymph # (Auto) [place] # (Auto) Eos # (Auto) Baso # (Auto) Abs Immat Gran (auto) Absolute Neuts (auto) Absolute Nucleated RBC Band Neutrophils % Nucleated RBC % Platelet Estimate Hypochromasia Anisocytosis Schistocytes Sodium Potassium Chloride Carbon Dioxide Anion Gap BUN Creatinine Estim Creat Clear Calc Estimated GFR Glucose POC Capillary Glucose 82 Calcium Phosphorus Magnesium Total Bilirubin AST ALT Alkaline Phosphatase Total Protein Albumin Vitamin B12 Vitamin D 25-Hydroxy Folate Procalcitonin Nasal MRSA (PCR) Hep Bs Antigen Hep Bs Antibody
--- NOTE | 2025-02-17 11:00 | P.PNNP_ITS ---
Progress Note: A&P Assessment and Plan (1) End stage renal disease: Code(s): N18.6 - End stage renal disease Status: Inactive Assessment and Plan: * HD today * continue T/T/S outpatient dialysis schedule while hospitalized * follow electrolytes, volume status, and clearance (2) Acute respiratory failure with hypoxia: Code(s): J96.01 - Acute respiratory failure with hypoxia Status: Acute Assessment and Plan: * improving * due to several issues: * mild pulmonary edema * suspected pneumonia * chronic CHF * COPD * relative anemia * fluid removal/ultrafiltration with dialysis as tolerated * on antibiotics, nebulizer treatments, and supplemental oxygen * follow respiratory status (3) Upper extremity weakness: Code(s): R29.898 - Other symptoms and signs involving the musculoskeletal system Status: Acute Assessment and Plan: * as noted on presentation * CT of head negative for acute process * due to hypoxia? * Neurology recommendations noted (4) Pneumonia: Qualifiers: Laterality: unspecified laterality Lung location: unspecified part of lung Pneumonia type: due to unspecified organism Qualified Code(s): J18.9 - Pneumonia, unspecified organism Code(s): J18.9 - Pneumonia, unspecified organism Status: Acute Assessment and Plan: * admission CXR with suggestion of pneumonia * on antibiotic therapy * follow culture data (5) Atrial fibrillation: Code(s): I48.91 - Unspecified atrial fibrillation Status: Inactive Assessment and Plan: * rate control strategy * not on anticoagulation (presumably due to issues with anemia/GI bleed?) (6) Anemia: Code(s): D64.9 - Anemia, unspecified Status: Inactive Assessment and Plan: * due to ESRD * Epogen with HD * follow trend of H/H (7) Essential (primary) hypertension: Code(s): I10 - Essential (primary) hypertension Status: Chronic Assessment and Plan: * reasonable control at this time * follow trend of hemodynamics (8) IDDM (insulin dependent diabetes mellitus): Status: Chronic Assessment and Plan: * follow accu-cheks * glycemic control per hospitalists Will continue to follow. L Subjective Date/time seen: 02/17/25 11:00 Interval history: Follow-up for end stage renal disease on hemodialysis. Tolerating dialysis treatment at the time of my visit (seen on HD at 10:50AM); resting comfortably when seen; no issues/events overnight or earlier this morning; able to move upper extremities up but not past his shoulders; no other acute complaints noted. Exam 2 Narrative: General: elderly WD/WN male in NAD Heart: normal S1 and S2; no rub Lungs: coarse breath sounds at bases Abdomen: soft, nontender, nondistended, positive bowel sounds Extremities: no cyanosis or clubbing; trace - 1+ edema Skin: warm and dry Objective Data Vital Signs Vital Signs: Vital Signs Temp Pulse Resp BP Pulse Ox O2 Del Method O2 Flow Rate 02/17/25 10:00 72 02/17/25 09:43 98.4 F 75 18 131/73 02/17/25 08:16 95 Nasal Cannula 3 02/17/25 08:00 77 02/17/25 08:00 98 Nasal Cannula 3 02/17/25 08:00 98.4 F 80 16 145/61 H 95 02/17/25 06:00 74 02/17/25 04:00 73 02/17/25 03:34 97.9 F 75 20 141/65 H 100 02/17/25 03:24 98 Non-Rebreather Mask 10 02/17/25 02:00 80 02/17/25 00:00 80 02/17/25 00:00 96 Nasal Cannula 3 02/16/25 23:48 97.5 F L 75 20 158/76 H 96 02/16/25 22:00 76 02/16/25 20:00 73 02/16/25 20:00 97 Nasal Cannula 3 02/16/25 20:00 98.3 F 74 18 157/70 H 97 02/16/25 18:00 77 02/16/25 17:28 79 02/16/25 16:00 69 02/16/25 16:00 98.3 F 77 20 146/67 H 95 02/16/25 16:00 70 20 92 Nasal Cannula 3 02/16/25 14:00 70 02/16/25 12:00 79 02/16/25 12:00 79 20 91 Nasal Cannula 3 02/16/25 12:00 98 F 75 20 163/96 H 98 Intake/Output Intake/Output: Intake & Output 02/14/25 02/15/25 02/16/25 02/17/25 23:59 23:59 23:59 23:59 Intake Total 50 1450 540 Output Total 350 Balance 50 1100 540 Meds/Results Medications: Active Medications Generic Name Dose Route Start Last Admin Trade Name Freq PRN Reason Stop Dose Admin Acetaminophen 650 mg 02/15/25 23:52 Acetaminophen 325 Mg Tablet PO Q4H PRN Mild Pain (1-3) or Fever Amlodipine Besylate 10 mg 02/16/25 09:00 02/17/25 08:28 Amlodipine Besylate 10 Mg Tablet PO 10 mg DAILY DAVID Administration Aspirin 81 mg 02/16/25 09:00 02/17/25 08:27 Aspirin 81 Mg Enteric Tablet PO 81 mg DAILY DAVID Administration Atorvastatin Calcium 20 mg 02/16/25 21:00 02/16/25 21:07 Atorvastatin 20 Mg Tablet PO 20 mg HS DAVID Administration Bisacodyl 10 mg 02/16/25 07:03 Bisacodyl 10 Mg Suppository RECTAL DAILY PRN constipation Carvedilol 25 mg 02/16/25 08:00 02/17/25 08:28 Carvedilol 25 Mg Tablet PO 25 mg BIDWM DAVID Administration Cinacalcet 90 mg 02/16/25 09:00 02/17/25 08:28 Cinacalcet 30 Mg Tablet PO 03/18/25 08:59 90 mg DAILY DAVID Administration Dextrose 12.5 gm 02/16/25 08:20 Dextrose 50% 25 Gm/50 Ml Syringe IV PUSH PRN PRN Hypoglycemia Protocol Epoetin David-epbx 10,000 units 02/17/25 18:28 02/17/25 11:28 Epoetin David-Epbx 10,000 Units/Ml Vial IV PUSH 02/17/25 18:29 10,000 units ONCE ONE Administration Finasteride 5 mg 02/16/25 09:00 02/17/25 08:28 Finasteride 5 Mg Tablet PO 5 mg QAM DAVID Administration Furosemide 80 mg 02/16/25 09:00 02/17/25 08:29 Furosemide 80 Mg Tablet PO 80 mg BID DAVID Administration Gabapentin 100 mg 02/16/25 09:00 02/17/25 08:28 Gabapentin 100 Mg Capsule PO 100 mg TID DAVID Administration Glucagon 1 mg 02/16/25 08:20 Glucagon For Inj 1 Mg Vial IM PRN PRN Hypoglycemia Protocol Glucose 15 gm 02/16/25 08:20 Glucose Oral Gel 15 Gm Of Glucse In 37.5 Gm Tube PO PRN PRN Hypoglycemia Protocol Heparin Sodium (Porcine) 5,000 units 02/16/25 09:00 02/16/25 21:07 Heparin Sodium 5,000 Units/Ml Vial SUB-Q 5,000 units Q12HR DAVID Administration Dextrose 1,000 mls @ 100 mls/hr 02/16/25 08:20 Dextrose 5% 1,000 Ml IVPB PRN PRN Hypoglycemia Protocol Ceftriaxone Sodium 1 gm in 50 mls @ 100 mls/hr 02/16/25 08:30 02/17/25 08:27 Rocephin 1 Gm/Ns 50 Ml IVPB 100 mls/hr Q24H DAVID Administration Doxycycline Hyclate 100 mg in 100 mls @ 100 mls/hr 02/16/25 09:00 02/17/25 08:27 Vibramycin 100 Mg/Ns 100 Ml IVPB 100 mls/hr Q12H DAVID Administration Albumin Human 50 mls @ 999 mls/hr 02/17/25 06:27 Albutein IVPB 03/19/25 06:26 Q10M PRN HYPOTENSION Insulin Aspart 4 units 02/16/25 08:00 02/17/25 08:29 Insulin Aspart (*Bkc) 100 Units/Ml SUB-Q 4 units TIDWM DAVID Administration Insulin Aspart 2 - 5 units 02/16/25 12:00 02/17/25 08:09 Insulin Aspart (*Bkc) 100 Units/Ml SUB-Q Not Given TIDWM DAVID Protocol Insulin Glargine 6 units 02/16/25 18:00 02/16/25 17:30 Insulin Glargine (*Bkc) 100 Units/Ml SUB-Q 6 units QPM DAVID Administration Loratadine 10 mg 02/16/25 09:00 02/17/25 08:28 Loratadine 10 Mg Tablet PO 10 mg DAILY DAVID Administration Loratadine 10 mg 02/16/25 07:03 Loratadine 10 Mg Tablet PO DAILY PRN itching Pentoxifylline 400 mg 02/16/25 18:00 02/16/25 17:29 Pentoxifylline 400 Mg Tabcr PO 400 mg QPM DAVID Administration Sevelamer Carbonate 3.2 gm 02/16/25 08:00 02/17/25 08:27 Sevelamer Carbonate 0.8 Gm Oral Powder Packet PO 3.2 gm TIDWM DAVID Administration Silver Sulfadiazine 1 applic 02/16/25 09:00 02/16/25 11:14 Silver Sulfadiazine 1% Cr 50 Gm Jar (*Bkc) TOPICAL Not Given QAM [facility] Tamsulosin HCl 0.4 mg 02/16/25 21:00 02/16/25 21:07 Tamsulosin Hcl 0.4 Mg Capsule PO 0.4 mg QHS DAVID Administration Radiology Results: ITS Impressions Chest X-Ray 02/15/25 19:22 IMPRESSION: Cardiomegaly with highly suggestive cardiac decompensation and pulmonary edema. Bibasilar opacification suggestive of atelectasis versus pneumonia with left pleural effusion. Head CT 02/15/25 19:38 IMPRESSION: No acute intracranial findings. Labs Labs: Laboratory Tests 02/17/25 04:07 02/17/25 04:07 Calcium 10.1 Phosphorus 7.3 H Magnesium 2.3 Total Bilirubin 0.3 AST 13 L ALT 9 Alkaline Phosphatase 56 Total Protein 6.0 L Albumin 3.4 L Vitamin B12 694.0 Methylmalonic Acid Pending Vitamin D 25-Hydroxy 25.2 Folate 6.3 Homocysteine Pending Procalcitonin 0.5 Hep Bs Antigen Negative Hep Bs Antibody Indeterminate Microbiology 02/15/25 21:59 Blood Blood Culture - Preliminary 02/15/25 21:59 Blood Blood Culture - Preliminary
[2025-02-17] MEDS: EPOETIN ALFA-EPBX 10,000 UNITS/ML VIAL 10000 UNITS IV PUSH (11:28)
--- NOTE | 2025-02-17 15:37 | PC.NURSE ---
This patient, Sam Morrissey, was received from u on 02/17/25 at 1537. Patient/family oriented to unit policies and routines
[2025-02-17 15:51] LABS: Glucose Point of Care 98 mg/dl (65-105)
[2025-02-17] MEDS: SILVER SULFADIAZINE 1% CR 50 GM JAR (*BKC) 1 APPLIC TOPICAL (16:54)
[2025-02-17 17:08] LABS: Glucose Point of Care 108 mg/dl (65-105)
[2025-02-17] MEDS: INSULIN GLARGINE (*BKC) 100 UNITS/ML 6 UNITS SUB-Q (18:25)
[2025-02-17] MEDS: PENTOXIFYLLINE 400 MG TABCR PO (18:35)
[2025-02-17] MEDS: HEPARIN SODIUM 5,000 UNITS/ML VIAL 5000 UNITS SUB-Q (20:44)
[2025-02-17] MEDS: TAMSULOSIN HCL 0.4 MG CAPSULE PO (20:44)
[2025-02-17] MEDS: ATORVASTATIN 20 MG TABLET PO (20:44)
[2025-02-18] VITALS (9 sets, daily range): BP systolic 136–147; BP diastolic 46–68; PULSE 66–80; RESP 16–20; TEMP 36–36.2; O2SAT 91–100
[2025-02-18 06:21] LABS: Basophils Absolute Auto 0.1 K/mm3 (0.0-0.1); Basophils Percent Auto 1.5 % (0.2-1.2); Eosinophils Absolute Auto 0.2 K/mm3 (0-0.3); Eosinophils Percent Auto 3.5 % (0-4.4); Hematocrit 29.7 % (42.0-52.0); Hemoglobin 8.7 g/dL (14.0-18.0); Immature Granulocyte Absolute 0.04 K/mm3 (0.00-0.031); Immature Granulocyte Percent A 0.8 % (0-0.5); Lymphocytes Absolute Auto 0.59 K/mm3 (0.9-3.2); Lymphocytes Percent Auto 12.3 % (18.3-44.2); Mean Corpuscular HGB Conc 29.3 g/dl (32-36); Mean Corpuscular Hemoglobin 27.2 pg (26-34); Mean Corpuscular Volume 92.8 fl (80-100); Mean Platelet Volume 10.6 fl (7.4-10.4); Monocytes Absolute Auto 0.7 K/mm3 (0.1-0.6); Monocytes Percent Auto 13.5 % (2.6-8.5); Neutrophils Absolute Auto 3.3 K/mm3 (1.3-6.7); Neutrophils Percent Auto 68.4 % (45.5-73.1); Platelet Count Result 177 k/mm3 (150-375); Red Cell Distribution Width 18.4 % (11.5-14.5); White Blood Count 4.8 K/mm3 (4.5-10.0)
[2025-02-18 06:38] LABS: Alanine Aminotransferase 9 U/L (6-50); Albumin Level 3.5 g/dL (3.5-5.1); Alkaline Phosphatase 50 U/L (38-126); Anion Gap 8 mmol/L (4-12); Aspartate Amino Transferase 15 U/L (17-59); Bilirubin,Total 0.3 mg/dL (0.2-1.3); Blood Urea Nitrogen 30 mg/dL (9-20); Calcium 10.4 mg/dL (8.4-10.2); Carbon Dioxide 29 mmol/L (22-30); Chloride 98 mmol/L (98-107); Estimated CRCL calculation 11 ml/min; Estimated Glomerular Filt Rate 12; Glucose 98 mg/dL (65-110); Magnesium 2.1 mg/dL (1.6-2.3); Phosphorus 5.9 mg/dL (2.5-4.5); Potassium 4.3 mmol/L (3.4-5.0); Sodium 135 mmol/L (137-145)
[2025-02-18 06:55] LABS: Procalcitonin 0.8 ng/mL
[2025-02-18 07:26] LABS: Anisocytosis 1+; Hypochromasia 1+; Platelet Estimate Adequate (Adequate); Schistocytes None Seen
[2025-02-18 08:13] LABS: Glucose Point of Care 150 mg/dl (65-105)
[2025-02-18 08:37] LABS: Glucose Point of Care 95 mg/dl (65-105)
--- NOTE | 2025-02-18 09:29 | P.PNIM_ITS ---
Progress Note: A&P Assessment and Plan (1) IDDM (insulin dependent diabetes mellitus): Status: Chronic (2) Pressure ulcer of left heel, unstageable: Code(s): L89.620 - Pressure ulcer of left heel, unstageable Status: Acute (3) Pneumonia: Qualifiers: Laterality: unspecified laterality Lung location: unspecified part of lung Pneumonia type: due to unspecified organism Qualified Code(s): J18.9 - Pneumonia, unspecified organism Code(s): J18.9 - Pneumonia, unspecified organism Status: Acute (4) Seizure disorder: Code(s): G40.909 - Epilepsy, unspecified, not intractable, without status epilepticus Status: Acute (5) Acute hypoxic respiratory failure: Code(s): J96.01 - Acute respiratory failure with hypoxia Status: Acute (6) Type 2 diabetes mellitus, with long-term current use of insulin: Qualifiers: Diabetes mellitus complication detail: with polyneuropathy Diabetes mellitus complication status: with neurologic complications Qualified Code(s): E11.42 - Type 2 diabetes mellitus with diabetic polyneuropathy; 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.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 (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) use of insulin Code(s): E11.9 - Type 2 diabetes mellitus without complications; Z79.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 (current) use of insulin Status: Acute (7) CAD in [place] artery: Code(s): I25.10 - Atherosclerotic heart disease of [place] coronary artery without angina pectoris Status: Acute (8) End-stage renal disease on hemodialysis: Code(s): N18.6 - End stage renal disease; Z99.2 - Dependence on renal dialysis Status: Acute (9) Weakness: Code(s): R53.1 - Weakness Status: Acute (10) Elevated troponin: Code(s): R79.89 - Other specified abnormal findings of blood chemistry Status: Acute (11) Pulmonary edema: Qualifiers: Chronicity: acute Qualified Code(s): J81.0 - Acute pulmonary edema Code(s): J81.1 - Chronic pulmonary edema Status: Acute (12) Obstructive sleep apnea: Code(s): G47.33 - Obstructive sleep apnea (adult) (pediatric) Status: Acute Plan 79-year-old male with a past medical history of end-stage renal disease on dialysis Sunday, coronary artery disease status post CABG 2013, cardiac pacemaker due to sinus pauses October 2024, peripheral artery st atus post angioplasty and endarterectomy bilateral lower extremities, obstructive sleep apnea intolerant to CPAP, COPD, insulin-dependent diabetes mellitus, unstageable decubitus ulcer right heel with eschar among other comorbidities who presented to the ER via EMS from half-way facility due to weakness and blurred vision. The patient reports that in the late afternoon he felt as if he could not move any of his extremities. The alf staff at also reported the patient had had some blurred vision patient did not mention mention vision changes at the time of my evaluation. On the scene the patient was found to be hypoxic. General weakness and blurred vision Patient presented weakness and stated he could not move any of his extremities for about [address] head shows no acute intracranial issues Possible due to hypoxemia needs to rule out neuro issues, consult neurologist for evaluation treatment Appreciate neurology's consultation, Neurology considers possible restriction on the shoulder pain Acute respiratory failure with hypoxemia Possible due to CHF exacerbation pulmonary edema and pneumonia Patient received Lasix in the ED, Consult drier and grinder tender for dialysis Continue O2 therapy to keep pulse ox above 90 Patient is on 3 L oxygen via nasal cannular Community-acquired pneumonia X-ray suggest bilateral basal pneumonia Patient was placed on ceftriaxone and doxy IV Follow-up procalcitonin level End-stage renal disease on hemodialysis Overloaded upon arrival Consult drier and grinder tender for dialysis Patient underwent hemodialysis yesterday, 3.4 L removed Will need hemodialysis tomorrow again Chronic anemia No obvious bleeding Resulting from chronic renal failure Management per drier and grinder tender Type 2 diabetes Patient is on Lantus 6 units, lispro 5 units a.c. and sliding scale Controlled Subjective Date/time seen: 02/18/25 09:29 Interval history: I saw exam patient today. Patient feels dyspnea improved significantly, no new focal deficits. Also denies chest pain abdomen pain nausea vomiting diarrhea, no new issue even overnight, afebrile, blood pressure stable, patient is on 3 L oxygen via nasal cannula Exam Narrative: GENERAL: Pleasant, in no acute distress. Well-nourished. - EYES: EOMI. Anicteric. - HENT: Moist mucous membranes. - LUNGS: Coarse breath sound bilaterall y - CARDIOVASCULAR: Regular rate and rhyth m. No murmur. No JVD. - ABDOMEN: Soft, non-tender and non-dist ended. No palpable masses. - EXTREMITIES: No edema. Peripheral puls es 2+. Non-tender. - NEUROLOGIC: No focal neurological defi cits. CN II-XII grossly intact, able to move all extremities - PSYCHIATRIC: Awake, Alert and oriented x 3. Appropriate mood and affect. - SKIN: No rashes or lesions. Warm. - LYMPH: No cervical lymphadenopathy. Objective Data Vital Signs Vital Signs: Vital Signs - 24 hr 02/17/25 09:43 02/17/25 09:43 02/17/25 10:00 Temperature 98.4 F Pulse Rate 75 72 Respiratory Rate 18 Blood Pressure 131/73 Pulse Oximetry Oxygen Delivery Oxygen Flow Rate 3 02/17/25 10:00 02/17/25 10:15 02/17/25 10:30 Temperature Pulse Rate 74 76 68 Respiratory Rate Blood Pressure 133/67 129/63 121/58 L Pulse Oximetry Oxygen Delivery Oxygen Flow Rate 02/17/25 10:45 02/17/25 11:00 02/17/25 11:15 Temperature Pulse Rate 75 74 75 Respiratory Rate Blood Pressure 126/64 120/64 123/55 L Pulse Oximetry Oxygen Delivery Oxygen Flow Rate 02/17/25 11:30 02/17/25 11:45 02/17/25 12:00 Temperature Pulse Rate 73 72 73 Respiratory Rate Blood Pressure 127/51 L 109/64 133/64 Pulse Oximetry Oxygen Delivery Oxygen Flow Rate 02/17/25 12:15 02/17/25 12:30 02/17/25 12:45 Temperature Pulse Rate 70 73 75 Respiratory Rate Blood Pressure 141/66 H 166/64 H 154/74 H Pulse Oximetry Oxygen Delivery Oxygen Flow Rate 02/17/25 13:00 02/17/25 13:15 02/17/25 13:30 Temperature Pulse Rate 75 74 74 Respiratory Rate Blood Pressure 128/70 122/62 125/61 Pulse Oximetry Oxygen Delivery Oxygen Flow Rate 02/17/25 13:45 02/17/25 14:00 02/17/25 14:27 Temperature 98.1 F Pulse Rate 70 74 74 Respiratory Rate 18 Blood Pressure 124/67 139/67 138/64 Pulse Oximetry Oxygen Delivery Oxygen Flow Rate 02/17/25 16:00 02/17/25 17:40 02/17/25 20:00 Temperature 98.4 F Pulse Rate 71 80 Respiratory Rate 18 Blood Pressure 145/60 H Pulse Oximetry 94 99 Oxygen Delivery Nasal Cannula Oxygen Flow Rate 3 02/17/25 22:41 02/18/25 06:00 Temperature 97.0 F L 97.2 F L Pulse Rate 76 68 Respiratory Rate 18 18 Blood Pressure 129/93 H 147/68 H Pulse Oximetry 100 98 Oxygen Delivery Oxygen Flow Rate Intake/Output Intake/Output: Intake & Output 02/15/25 02/16/25 02/17/25 02/18/25 23:59 23:59 23:59 23:59 Intake Total 50 1450 1000 200 Output Total 350 3500 Balance 50 1100 -2500 200 Meds/Results Medications: Active Medications Generic Name Dose Route Start Last Admin Trade Name Freq PRN Reason Stop Dose Admin Acetaminophen 650 mg 02/15/25 23:52 Acetaminophen 325 Mg Tablet PO Q4H PRN Mild Pain (1-3) or Fever Amlodipine Besylate 10 mg 02/16/25 09:00 02/17/25 08:28 Amlodipine Besylate 10 Mg Tablet PO 10 mg DAILY DAVID Administration Aspirin 81 mg 02/16/25 09:00 02/17/25 08:27 Aspirin 81 Mg Enteric Tablet PO 81 mg DAILY DAVID Administration Atorvastatin Calcium 20 mg 02/16/25 21:00 02/17/25 20:44 Atorvastatin 20 Mg Tablet PO 20 mg HS DAVID Administration Bisacodyl 10 mg 02/16/25 07:03 Bisacodyl 10 Mg Suppository RECTAL DAILY PRN constipation Carvedilol 25 mg 02/16/25 08:00 02/17/25 17:40 Carvedilol 25 Mg Tablet PO 25 mg BIDWM DAVID Administration Cinacalcet 90 mg 02/16/25 09:00 02/17/25 08:28 Cinacalcet 30 Mg Tablet PO 03/18/25 08:59 90 mg DAILY DAVID Administration Dextrose 12.5 gm 02/16/25 08:20 Dextrose 50% 25 Gm/50 Ml Syringe IV PUSH PRN PRN Hypoglycemia Protocol Finasteride 5 mg 02/16/25 09:00 02/17/25 08:28 Finasteride 5 Mg Tablet PO 5 mg QAM DAVID Administration Furosemide 80 mg 02/16/25 09:00 02/17/25 17:40 Furosemide 80 Mg Tablet PO 80 mg BID DAVID Administration Gabapentin 100 mg 02/16/25 09:00 02/17/25 17:40 Gabapentin 100 Mg Capsule PO 100 mg TID DAVID Administration Glucagon 1 mg 02/16/25 08:20 Glucagon For Inj 1 Mg Vial IM PRN PRN Hypoglycemia Protocol Glucose 15 gm 02/16/25 08:20 Glucose Oral Gel 15 Gm Of Glucse In 37.5 Gm Tube PO PRN PRN Hypoglycemia Protocol Heparin Sodium (Porcine) 5,000 units 02/16/25 09:00 02/17/25 20:44 Heparin Sodium 5,000 Units/Ml Vial SUB-Q 5,000 units Q12HR DAVID Administration Dextrose 1,000 mls @ 100 mls/hr 02/16/25 08:20 Dextrose 5% 1,000 Ml IVPB PRN PRN Hypoglycemia Protocol Ceftriaxone Sodium 1 gm in 50 mls @ 100 mls/hr 02/16/25 08:30 02/17/25 08:27 Rocephin 1 Gm/Ns 50 Ml IVPB 100 mls/hr Q24H DAVID Administration Doxycycline Hyclate 100 mg in 100 mls @ 100 mls/hr 02/16/25 09:00 02/17/25 20:50 Vibramycin 100 Mg/Ns 100 Ml IVPB 100 mls/hr Q12H DAVID Administration Albumin Human 50 mls @ 999 mls/hr 02/17/25 06:27 Albutein IVPB 03/19/25 06:26 Q10M PRN HYPOTENSION Insulin Aspart 4 units 02/16/25 08:00 02/17/25 18:25 Insulin Aspart (*Bkc) 100 Units/Ml SUB-Q 4 units TIDWM DAVID Administration Insulin Aspart 2 - 5 units 02/16/25 12:00 02/17/25 17:30 Insulin Aspart (*Bkc) 100 Units/Ml SUB-Q Not Given TIDWM [facility] Protocol Insulin Glargine 6 units 02/16/25 18:00 02/17/25 18:25 Insulin Glargine (*Bkc) 100 Units/Ml SUB-Q 6 units QPM DAVID Administration Loratadine 10 mg 02/16/25 09:00 02/17/25 08:28 Loratadine 10 Mg Tablet PO 10 mg DAILY DAVID Administration Loratadine 10 mg 02/16/25 07:03 Loratadine 10 Mg Tablet PO DAILY PRN itching Pentoxifylline 400 mg 02/16/25 18:00 02/17/25 18:35 Pentoxifylline 400 Mg Tabcr PO 400 mg QPM DAVID Administration Sevelamer Carbonate 3.2 gm 02/16/25 08:00 02/17/25 18:35 Sevelamer Carbonate 0.8 Gm Oral Powder Packet PO 3.2 gm TIDWM DAVID Administration Silver Sulfadiazine 1 applic 02/16/25 09:00 02/17/25 16:54 Silver Sulfadiazine 1% Cr 50 Gm Jar (*Bkc) TOPICAL 1 applic QAM DAVID Administration Tamsulosin HCl 0.4 mg 02/16/25 21:00 02/17/25 20:44 Tamsulosin Hcl 0.4 Mg Capsule PO 0.4 mg QHS DAVID Administration Radiology Results: ITS Impressions Chest X-Ray 02/15/25 19:22 IMPRESSION: Cardiomegaly with highly suggestive cardiac decompensation and pulmonary edema. Bibasilar opacification suggestive of atelectasis versus pneumonia with left pleural effusion. Head CT 02/15/25 19:38 IMPRESSION: No acute intracranial findings. Labs Labs: Laboratory Results - last 24 hr 02/17/25 02/17/25 02/17/25 15:49 16:50 20:42 WBC RBC Hgb Hct MCV MCH MCHC RDW Plt Count MPV Immature Gran % (Auto) Neut % (Auto) Lymph % (Auto) [place] % (Auto) Eos % (Auto) Baso % (Auto) Lymph # (Auto) [place] # (Auto) Eos # (Auto) Baso # (Auto) Abs Immat Gran (auto) Absolute Neuts (auto) Absolute Nucleated RBC Band Neutrophils % Nucleated RBC % Platelet Estimate Hypochromasia Anisocytosis Schistocytes Sodium Potassium Chloride Carbon Dioxide Anion Gap BUN Creatinine Estim Creat Clear Calc Estimated GFR Glucose POC Capillary Glucose 98 108 H 150 H Calcium Phosphorus Magnesium Total Bilirubin AST ALT Alkaline Phosphatase Total Protein Albumin Procalcitonin 02/18/25 02/18/25 06:07 08:21 WBC 4.8 RBC 3.20 L Hgb 8.7 L Hct 29.7 L MCV 92.8 MCH 27.2 MCHC 29.3 L RDW 18.4 H Plt Count 177 MPV 10.6 H Immature Gran % (Auto) 0.8 H Neut % (Auto) 68.4 Lymph % (Auto) 12.3 L Ford % (Auto) 13.5 H Eos % (Auto) 3.5 Baso % (Auto) 1.5 H Lymph # (Auto) 0.59 L [place] # (Auto) 0.7 H Eos # (Auto) 0.2 Baso # (Auto) 0.1 Abs Immat Gran (auto) 0.04 H Absolute Neuts (auto) 3.3 Absolute Nucleated RBC 0.000 Band Neutrophils % Not Reportable Nucleated RBC % 0.0 Platelet Estimate Adequate Hypochromasia 1+ Anisocytosis 1+ Schistocytes None seen Sodium 135 L Potassium 4.3 Chloride 98 Carbon Dioxide 29 Anion Gap 8 BUN 30 H D Creatinine 4.82 H Estim Creat Clear Calc 11 Estimated GFR 12 L Glucose 98 POC Capillary Glucose 95 Calcium 10.4 H Phosphorus 5.9 H Magnesium 2.1 Total Bilirubin 0.3 AST 15 L ALT 9 Alkaline Phosphatase 50 Total Protein 6.0 L Albumin 3.5 Procalcitonin 0.8
[2025-02-18] MEDS: DOXYCYCLINE 100 MG/NS 100 ML 100 MG/100 ML BAG IVPB (10:10)
[2025-02-18] MEDS: ASPIRIN 81 MG ENTERIC TABLET PO (10:11)
[2025-02-18] MEDS: GABAPENTIN 100 MG CAPSULE PO ×3 (10:11→18:09)
[2025-02-18] MEDS: FINASTERIDE 5 MG TABLET PO (10:11)
[2025-02-18] MEDS: amLODIPine BESYLATE 10 MG TABLET PO (10:11)
[2025-02-18] MEDS: CINACALCET 30 MG TABLET 90 MG PO (10:11)
[2025-02-18] MEDS: FUROSEMIDE 80 MG TABLET PO ×2 (10:11→18:09)
[2025-02-18] MEDS: LORATADINE 10 MG TABLET PO (10:12)
[2025-02-18] MEDS: SEVELAMER CARBONATE 0.8 GM ORAL POWDER PACKET 3.2 GM PO ×3 (10:12→18:10)
[2025-02-18] MEDS: carvediloL 25 MG TABLET PO ×2 (10:12→18:09)
[2025-02-18] MEDS: HEPARIN SODIUM 5,000 UNITS/ML VIAL 5000 UNITS SUB-Q ×2 (10:13→22:17)
[2025-02-18] MEDS: INSULIN ASPART (*BKC) 100 UNITS/ML SUB-Q ×3 (10:14→18:15)
[2025-02-18 11:54] LABS: Glucose Point of Care 122 mg/dl (65-105)
--- NOTE | 2025-02-18 13:04 | P.PNNP_ITS ---
Progress Note: A&P Assessment and Plan (1) End stage renal disease: Code(s): N18.6 - End stage renal disease Status: Inactive Assessment and Plan: * HD tomorrow * continue T/T/S outpatient dialysis schedule while hospitalized * follow electrolytes, volume status, and clearance (2) Acute respiratory failure with hypoxia: Code(s): J96.01 - Acute respiratory failure with hypoxia Status: Acute Assessment and Plan: * improving * due to several issues: * mild pulmonary edema * suspected pneumonia * chronic CHF * COPD * relative anemia * fluid removal/ultrafiltration with dialysis as tolerated * on antibiotics, nebulizer treatments, and supplemental oxygen * wean supplemental oxygen as tolerated * follow respiratory status (3) Upper extremity weakness: Code(s): R29.898 - Other symptoms and signs involving the musculoskeletal system Status: Acute Assessment and Plan: * as noted on presentation * CT of head negative for acute process * due to hypoxia? * Neurology recommendations noted (4) Pneumonia: Qualifiers: Laterality: unspecified laterality Lung location: unspecified part of lung Pneumonia type: due to unspecified organism Qualified Code(s): J18.9 - Pneumonia, unspecified organism Code(s): J18.9 - Pneumonia, unspecified organism Status: Acute Assessment and Plan: * admission CXR with suggestion of pneumonia * on antibiotic therapy * follow culture data - negative to date (5) Atrial fibrillation: Code(s): I48.91 - Unspecified atrial fibrillation Status: Inactive Assessment and Plan: * rate control strategy * not on anticoagulation (presumably due to issues with anemia/GI bleed?) (6) Anemia: Code(s): D64.9 - Anemia, unspecified Status: Inactive Assessment and Plan: * due to ESRD * Epogen with HD * follow trend of H/H (7) Essential (primary) hypertension: Code(s): I10 - Essential (primary) hypertension Status: Chronic Assessment and Plan: * reasonable control at this time * follow trend of hemodynamics (8) IDDM (insulin dependent diabetes mellitus): Status: Chronic Assessment and Plan: * follow accu-cheks * glycemic control per hospitalists Will continue to follow. L Subjective Date/time seen: 02/18/25 13:04 Interval history: Follow-up for end stage renal disease on hemodialysis. Tolerated dialysis treatment yesterday without any issues or problems; breathing/respiratory status seems to be doing better in general (although remains on supplemental oxygen); no other acute complaints voiced at the time of my visit; no events overnight or earlier this morning. Exam 2 Narrative: General: elderly WD/WN male in NAD Heart: normal S1 and S2; no rub Lungs: coarse breath sounds at bases Abdomen: soft, nontender, nondistended, positive bowel sounds Extremities: no cyanosis or clubbing; trace - 1+ edema Skin: warm and intact Objective Data Vital Signs Vital Signs: Vital Signs Temp Pulse Resp BP Pulse Ox O2 Del Method O2 Flow Rate 02/18/25 13:00 96.8 F L 74 16 140/46 L 100 02/18/25 10:12 75 02/18/25 08:00 75 18 98 Nasal Cannula 3 02/18/25 06:00 97.2 F L 68 18 147/68 H 98 02/17/25 22:41 97.0 F L 76 18 129/93 H 100 02/17/25 20:00 99 Nasal Cannula 3 02/17/25 17:40 80 02/17/25 16:00 98.4 F 71 18 145/60 H 94 Intake/Output Intake/Output: Intake & Output 02/15/25 02/16/25 02/17/25 02/18/25 23:59 23:59 23:59 23:59 Intake Total 50 1450 1150 917 Output Total 350 3500 Balance 50 1100 -2350 917 Meds/Results Medications: Active Medications Generic Name Dose Route Start Last Admin Trade Name Freq PRN Reason Stop Dose Admin Acetaminophen 650 mg 02/15/25 23:52 Acetaminophen 325 Mg Tablet PO Q4H PRN Mild Pain (1-3) or Fever Amlodipine Besylate 10 mg 02/16/25 09:00 02/18/25 10:11 Amlodipine Besylate 10 Mg Tablet PO 10 mg DAILY DAVID Administration Amoxicillin/Clavulanate Potassium 1 tablet 02/19/25 09:00 Amoxicillin/Clavulanate K 500-125 Mg Tab PO 02/22/25 21:01 Q12HR DAVID Aspirin 81 mg 02/16/25 09:00 02/18/25 10:11 Aspirin 81 Mg Enteric Tablet PO 81 mg DAILY DAVID Administration Atorvastatin Calcium 20 mg 02/16/25 21:00 02/17/25 20:44 Atorvastatin 20 Mg Tablet PO 20 mg HS DAVID Administration Bisacodyl 10 mg 02/16/25 07:03 Bisacodyl 10 Mg Suppository RECTAL DAILY PRN constipation Carvedilol 25 mg 02/16/25 08:00 02/18/25 10:12 Carvedilol 25 Mg Tablet PO 25 mg BIDWM DAVID Administration Cinacalcet 90 mg 02/16/25 09:00 02/18/25 10:11 Cinacalcet 30 Mg Tablet PO 03/18/25 08:59 90 mg DAILY DAVID Administration Dextrose 12.5 gm 02/16/25 08:20 Dextrose 50% 25 Gm/50 Ml Syringe IV PUSH PRN PRN Hypoglycemia Protocol Doxycycline Hyclate 100 mg 02/18/25 21:00 Doxycycline Hyclate 100 Mg Tablet PO 02/20/25 21:01 Q12HR DAVID Finasteride 5 mg 02/16/25 09:00 02/18/25 10:11 Finasteride 5 Mg Tablet PO 5 mg QAM DAVID Administration Furosemide 80 mg 02/16/25 09:00 02/18/25 10:11 Furosemide 80 Mg Tablet PO 80 mg BID DAVID Administration Gabapentin 100 mg 02/16/25 09:00 02/18/25 12:39 Gabapentin 100 Mg Capsule PO 100 mg TID DAVID Administration Glucagon 1 mg 02/16/25 08:20 Glucagon For Inj 1 Mg Vial IM PRN PRN Hypoglycemia Protocol Glucose 15 gm 02/16/25 08:20 Glucose Oral Gel 15 Gm Of Glucse In 37.5 Gm Tube PO PRN PRN Hypoglycemia Protocol Heparin Sodium (Porcine) 5,000 units 02/16/25 09:00 02/18/25 10:13 Heparin Sodium 5,000 Units/Ml Vial SUB-Q 5,000 units Q12HR DAVID Administration Dextrose 1,000 mls @ 100 mls/hr 02/16/25 08:20 Dextrose 5% 1,000 Ml IVPB PRN PRN Hypoglycemia Protocol Albumin Human 50 mls @ 999 mls/hr 02/17/25 06:27 Albutein IVPB 03/19/25 06:26 Q10M PRN HYPOTENSION Insulin Aspart 4 units 02/16/25 08:00 02/18/25 12:39 Insulin Aspart (*Bkc) 100 Units/Ml SUB-Q 4 units TIDWM DAVID Administration Insulin Aspart 2 - 5 units 02/16/25 12:00 02/18/25 12:02 Insulin Aspart (*Bkc) 100 Units/Ml SUB-Q Not Given TIDWM [facility] Protocol Insulin Glargine 6 units 02/16/25 18:00 02/17/25 18:25 Insulin Glargine (*Bkc) 100 Units/Ml SUB-Q 6 units QPM DAVID Administration Loratadine 10 mg 02/16/25 09:00 02/18/25 10:12 Loratadine 10 Mg Tablet PO 10 mg DAILY DAVID Administration Loratadine 10 mg 02/16/25 07:03 Loratadine 10 Mg Tablet PO DAILY PRN itching Pentoxifylline 400 mg 02/16/25 18:00 02/17/25 18:35 Pentoxifylline 400 Mg Tabcr PO 400 mg QPM DAVID Administration Sevelamer Carbonate 3.2 gm 02/16/25 08:00 02/18/25 12:36 Sevelamer Carbonate 0.8 Gm Oral Powder Packet PO 3.2 gm TIDWM DAVID Administration Silver Sulfadiazine 1 applic 02/16/25 09:00 02/17/25 16:54 Silver Sulfadiazine 1% Cr 50 Gm Jar (*Bkc) TOPICAL 1 applic QAM DAVID Administration Tamsulosin HCl 0.4 mg 02/16/25 21:00 02/17/25 20:44 Tamsulosin Hcl 0.4 Mg Capsule PO 0.4 mg QHS DAVID Administration Radiology Results: ITS Impressions Chest X-Ray 02/15/25 19:22 IMPRESSION: Cardiomegaly with highly suggestive cardiac decompensation and pulmonary edema. Bibasilar opacification suggestive of atelectasis versus pneumonia with left pleural effusion. Head CT 02/15/25 19:38 IMPRESSION: No acute intracranial findings. Labs Labs: Laboratory Tests 02/18/25 06:07 02/18/25 06:07 Calcium 10.4 H Phosphorus 5.9 H Magnesium 2.1 Total Bilirubin 0.3 AST 15 L ALT 9 Alkaline Phosphatase 50 Total Protein 6.0 L Albumin 3.5 Procalcitonin 0.8
[2025-02-18 13:59] LABS: Homocysteine 36.9 umol/L (<11.4)
[2025-02-18 16:41] LABS: Glucose Point of Care 115 mg/dl (65-105)
[2025-02-18] MEDS: PENTOXIFYLLINE 400 MG TABCR PO (18:10)
[2025-02-18] MEDS: INSULIN GLARGINE (*BKC) 100 UNITS/ML 6 UNITS SUB-Q (18:15)
[2025-02-18] MEDS: ACETAMINOPHEN 325 MG TABLET 650 MG PO (18:16)
[2025-02-18] MEDS: SILVER SULFADIAZINE 1% CR 50 GM JAR (*BKC) 1 APPLIC TOPICAL (19:01)
[2025-02-18] MEDS: DOXYCYCLINE HYCLATE 100 MG TABLET PO (22:17)
[2025-02-18] MEDS: ATORVASTATIN 20 MG TABLET PO (22:17)
[2025-02-18] MEDS: TAMSULOSIN HCL 0.4 MG CAPSULE PO (22:17)
[2025-02-19] VITALS (25 sets, daily range): BP systolic 110–157; BP diastolic 40–104; PULSE 51–80; RESP 18; TEMP 35.6–37; O2SAT 96–99
[2025-02-19 01:22] LABS: Glucose Point of Care 130 mg/dl (65-105)
[2025-02-19 05:59] LABS: Basophils Absolute Auto 0.1 K/mm3 (0.0-0.1); Basophils Percent Auto 1.8 % (0.2-1.2); Eosinophils Absolute Auto 0.2 K/mm3 (0-0.3); Hematocrit 28.9 % (42.0-52.0); Hemoglobin 8.4 g/dL (14.0-18.0); Immature Granulocyte Absolute 0.02 K/mm3 (0.00-0.031); Immature Granulocyte Percent A 0.4 % (0-0.5); Lymphocytes Absolute Auto 0.74 K/mm3 (0.9-3.2); Lymphocytes Percent Auto 16.4 % (18.3-44.2); Mean Corpuscular HGB Conc 29.1 g/dl (32-36); Mean Corpuscular Hemoglobin 27.2 pg (26-34); Mean Corpuscular Volume 93.5 fl (80-100); Mean Platelet Volume 11.2 fl (7.4-10.4); Monocytes Absolute Auto 0.5 K/mm3 (0.1-0.6); Monocytes Percent Auto 10.8 % (2.6-8.5); Neutrophils Percent Auto 66.6 % (45.5-73.1); Platelet Count Result 172 k/mm3 (150-375); Red Blood Count 3.09 M/mm3 (4.6-6.20); Red Cell Distribution Width 18.4 % (11.5-14.5); White Blood Count 4.5 K/mm3 (4.5-10.0)
[2025-02-19 06:15] LABS: Alanine Aminotransferase 9 U/L (6-50); Albumin Level 3.4 g/dL (3.5-5.1); Alkaline Phosphatase 60 U/L (38-126); Anion Gap 7 mmol/L (4-12); Aspartate Amino Transferase 12 U/L (17-59); Bilirubin,Total 0.3 mg/dL (0.2-1.3); Blood Urea Nitrogen 43 mg/dL (9-20); Calcium 10.8 mg/dL (8.4-10.2); Carbon Dioxide 30 mmol/L (22-30); Chloride 96 mmol/L (98-107); Estimated CRCL calculation 8 ml/min; Estimated Glomerular Filt Rate 8; Glucose 91 mg/dL (65-110); Magnesium 2.4 mg/dL (1.6-2.3); Phosphorus 6.4 mg/dL (2.5-4.5); Potassium 4.7 mmol/L (3.4-5.0); Sodium 133 mmol/L (137-145)
[2025-02-19 06:42] LABS: Hypochromasia 1+; Platelet Estimate Adequate (Adequate)
[2025-02-19 06:43] LABS: Anisocytosis 1+; Schistocytes None Seen
[2025-02-19 08:11] LABS: Glucose Point of Care 96 mg/dl (65-105)
[2025-02-19] MEDS: SODIUM CHLORIDE 0.9% IV 1,000 ML 999 ML IV CONT (08:23)
--- NOTE | 2025-02-19 08:55 | P.PNNP_ITS ---
Progress Note: A&P Assessment and Plan (1) End stage renal disease: Code(s): N18.6 - End stage renal disease Status: Inactive Assessment and Plan: * HD today * continue T/T/S outpatient dialysis schedule while hospitalized * follow electrolytes, volume status, and clearance * adjust calcium bath due to high calcium... (2) Acute respiratory failure with hypoxia: Code(s): J96.01 - Acute respiratory failure with hypoxia Status: Acute Assessment and Plan: * improving * due to several issues: * mild pulmonary edema * suspected pneumonia * chronic CHF * COPD * relative anemia * fluid removal/ultrafiltration with dialysis as tolerated * on antibiotics, nebulizer treatments, and supplemental oxygen * wean supplemental oxygen as tolerated * follow respiratory status (3) Upper extremity weakness: Code(s): R29.898 - Other symptoms and signs involving the musculoskeletal system Status: Acute Assessment and Plan: * as noted on presentation * CT of head negative for acute process * due to hypoxia? * Neurology recommendations noted (4) Pneumonia: Qualifiers: Laterality: unspecified laterality Lung location: unspecified part of lung Pneumonia type: due to unspecified organism Qualified Code(s): J18.9 - Pneumonia, unspecified organism Code(s): J18.9 - Pneumonia, unspecified organism Status: Acute Assessment and Plan: * admission CXR with suggestion of pneumonia * on antibiotic therapy * follow culture data - negative to date (5) Atrial fibrillation: Code(s): I48.91 - Unspecified atrial fibrillation Status: Inactive Assessment and Plan: * rate control strategy * not on anticoagulation (presumably due to issues with anemia/GI bleed?) (6) Anemia: Code(s): D64.9 - Anemia, unspecified Status: Inactive Assessment and Plan: * due to ESRD * Epogen with HD * follow trend of H/H (7) Essential (primary) hypertension: Code(s): I10 - Essential (primary) hypertension Status: Chronic Assessment and Plan: * reasonable control at this time * follow trend of hemodynamics (8) IDDM (insulin dependent diabetes mellitus): Status: Chronic Assessment and Plan: * follow accu-cheks * glycemic control per hospitalists Will continue to follow. L Subjective Date/time seen: 02/19/25 08:55 Interval history: Follow-up for end stage renal disease on hemodialysis. Tolerating dialysis treatment at the time of my visit (seen on HD at 8:45AM); no apparent distress voiced when seen; breathing/respiratory status seems stable (but still requiring supplemental oxygen); no other acute complaints to report; no issues overnight or earlier this morning. Exam 2 Narrative: General: elderly WD/WN male in NAD Heart: normal S1 and S2; no rub Lungs: coarse breath sounds at bases Abdomen: soft, nontender, nondistended, positive bowel sounds Extremities: no cyanosis or clubbing; trace - 1+ edema Skin: no rash Objective Data Vital Signs Vital Signs: Vital Signs Temp Pulse Resp BP Pulse Ox O2 Del Method O2 Flow Rate 02/19/25 08:45 52 L 134/82 02/19/25 08:33 55 L 154/57 H 02/19/25 08:23 97.9 F 75 18 157/68 H 02/19/25 08:23 3 02/19/25 05:05 97.9 F 79 18 142/60 H 96 02/18/25 20:40 97 F L 78 18 136/54 L 97 02/18/25 20:28 66 20 91 Nasal Cannula 2 02/18/25 20:00 99 Nasal Cannula 3 02/18/25 18:20 72 94 Nasal Cannula 2.5 02/18/25 18:09 80 02/18/25 14:00 96.8 F L 74 16 140/46 L 100 02/18/25 10:12 75 Intake/Output Intake/Output: Intake & Output 02/16/25 02/17/25 02/18/25 02/19/25 23:59 23:59 23:59 23:59 Intake Total 1450 1150 1637 Output Total 350 3500 Balance 1100 -2350 1637 Meds/Results Medications: Active Medications Generic Name Dose Route Start Last Admin Trade Name Freq PRN Reason Stop Dose Admin Acetaminophen 650 mg 02/15/25 23:52 02/18/25 18:16 Acetaminophen 325 Mg Tablet PO 650 mg Q4H PRN Administration Mild Pain (1-3) or Fever Amlodipine Besylate 10 mg 02/16/25 09:00 02/18/25 10:11 Amlodipine Besylate 10 Mg Tablet PO 10 mg DAILY DAVID Administration Amoxicillin/Clavulanate Potassium 1 tablet 02/19/25 09:00 Amoxicillin/Clavulanate K 500-125 Mg Tab PO 02/22/25 21:01 Q12HR DAVID Aspirin 81 mg 02/16/25 09:00 02/18/25 10:11 Aspirin 81 Mg Enteric Tablet PO 81 mg DAILY DAVID Administration Atorvastatin Calcium 20 mg 02/16/25 21:00 02/18/25 22:17 Atorvastatin 20 Mg Tablet PO 20 mg HS DAVID Administration Bisacodyl 10 mg 02/16/25 07:03 Bisacodyl 10 Mg Suppository RECTAL DAILY PRN constipation Carvedilol 25 mg 02/16/25 08:00 02/18/25 18:09 Carvedilol 25 Mg Tablet PO 25 mg BIDWM DAVID Administration Cinacalcet 90 mg 02/16/25 09:00 02/18/25 10:11 Cinacalcet 30 Mg Tablet PO 03/18/25 08:59 90 mg DAILY DVAID Administration Dextrose 12.5 gm 02/16/25 08:20 Dextrose 50% 25 Gm/50 Ml Syringe IV PUSH PRN PRN Hypoglycemia Protocol Doxycycline Hyclate 100 mg 02/18/25 21:00 02/18/25 22:17 Doxycycline Hyclate 100 Mg Tablet PO 02/20/25 21:01 100 mg Q12HR DAVID Administration Epoetin David-epbx 10,000 units 02/19/25 18:16 Epoetin David-Epbx 10,000 Units/Ml Vial IV PUSH 02/19/25 18:17 ONCE ONE Finasteride 5 mg 02/16/25 09:00 02/18/25 10:11 Finasteride 5 Mg Tablet PO 5 mg QAM DAVID Administration Furosemide 80 mg 02/16/25 09:00 02/18/25 18:09 Furosemide 80 Mg Tablet PO 80 mg BID DAVID Administration Gabapentin 100 mg 02/16/25 09:00 02/18/25 18:09 Gabapentin 100 Mg Capsule PO 100 mg TID DAVID Administration Glucagon 1 mg 02/16/25 08:20 Glucagon For Inj 1 Mg Vial IM PRN PRN Hypoglycemia Protocol Glucose 15 gm 02/16/25 08:20 Glucose Oral Gel 15 Gm Of Glucse In 37.5 Gm Tube PO PRN PRN Hypoglycemia Protocol Heparin Sodium (Porcine) 5,000 units 02/16/25 09:00 02/18/25 22:17 Heparin Sodium 5,000 Units/Ml Vial SUB-Q 5,000 units Q12HR DAVID Administration Dextrose 1,000 mls @ 100 mls/hr 02/16/25 08:20 Dextrose 5% 1,000 Ml IVPB PRN PRN Hypoglycemia Protocol Albumin Human 50 mls @ 999 mls/hr 02/17/25 06:27 Albutein IVPB 03/19/25 06:26 Q10M PRN HYPOTENSION Insulin Aspart 4 units 02/16/25 08:00 02/18/25 18:15 Insulin Aspart (*Bkc) 100 Units/Ml SUB-Q 4 units TIDWM DAVID Administration Insulin Aspart 2 - 5 units 02/16/25 12:00 02/18/25 16:51 Insulin Aspart (*Bkc) 100 Units/Ml SUB-Q Not Given TIDWM DAVID Protocol Insulin Glargine 6 units 02/16/25 18:00 02/18/25 18:15 Insulin Glargine (*Bkc) 100 Units/Ml SUB-Q 6 units QPM DAVID Administration Loratadine 10 mg 02/16/25 09:00 02/18/25 10:12 Loratadine 10 Mg Tablet PO 10 mg DAILY DAVID Administration Loratadine 10 mg 02/16/25 07:03 Loratadine 10 Mg Tablet PO DAILY PRN itching Pentoxifylline 400 mg 02/16/25 18:00 02/18/25 18:10 Pentoxifylline 400 Mg Tabcr PO 400 mg QPM DAVID Administration Sevelamer Carbonate 3.2 gm 02/16/25 08:00 02/18/25 18:10 Sevelamer Carbonate 0.8 Gm Oral Powder Packet PO 3.2 gm TIDWM DAVID Administration Silver Sulfadiazine 1 applic 02/16/25 09:00 02/18/25 19:01 Silver Sulfadiazine 1% Cr 50 Gm Jar (*Bkc) TOPICAL 1 applic QAM DAVID Administration Tamsulosin HCl 0.4 mg 02/16/25 21:00 02/18/25 22:17 Tamsulosin Hcl 0.4 Mg Capsule PO 0.4 mg QHS DAVID Administration Radiology Results: ITS Impressions Head CT 02/15/25 19:38 IMPRESSION: No acute intracranial findings. Chest X-Ray 02/18/25 20:32 IMPRESSION: Cardiomegaly with cardiac decompensation and pulmonary edema. Superimposed pneumonia is highly suggestive. Clinical correlation advised. Labs Labs: Laboratory Tests 02/19/25 05:50 02/19/25 05:50 Calcium 10.8 H Phosphorus 6.4 H Magnesium 2.4 H Total Bilirubin 0.3 AST 12 L ALT 9 Alkaline Phosphatase 60 Total Protein 6.0 L Albumin 3.4 L
--- NOTE | 2025-02-19 09:43 | P.PNIM_ITS ---
Progress Note: A&P Assessment and Plan (1) IDDM (insulin dependent diabetes mellitus): Status: Chronic (2) Pressure ulcer of left heel, unstageable: Code(s): L89.620 - Pressure ulcer of left heel, unstageable Status: Acute (3) Pneumonia: Qualifiers: Laterality: unspecified laterality Lung location: unspecified part of lung Pneumonia type: due to unspecified organism Qualified Code(s): J18.9 - Pneumonia, unspecified organism Code(s): J18.9 - Pneumonia, unspecified organism Status: Acute (4) Seizure disorder: Code(s): G40.909 - Epilepsy, unspecified, not intractable, without status epilepticus Status: Acute (5) Acute hypoxic respiratory failure: Code(s): J96.01 - Acute respiratory failure with hypoxia Status: Acute (6) Type 2 diabetes mellitus, with long-term current use of insulin: Qualifiers: Diabetes mellitus complication detail: with polyneuropathy Diabetes mellitus complication status: with neurologic complications Qualified Code(s): E11.42 - Type 2 diabetes mellitus with diabetic polyneuropathy; Z79.4 - exterminator helper termite (current) use of insulin Code(s): E11.9 - Type 2 diabetes mellitus without complications; Z79.4 - exterminator helper termite (current) use of insulin Status: Acute (7) CAD in [place] artery: Code(s): I25.10 - Atherosclerotic heart disease of [place] coronary artery without angina pectoris Status: Acute (8) End-stage renal disease on hemodialysis: Code(s): N18.6 - End stage renal disease; Z99.2 - Dependence on renal dialysis Status: Acute (9) Weakness: Code(s): R53.1 - Weakness Status: Acute (10) Elevated troponin: Code(s): R79.89 - Other specified abnormal findings of blood chemistry Status: Acute (11) Pulmonary edema: Qualifiers: Chronicity: acute Qualified Code(s): J81.0 - Acute pulmonary edema Code(s): J81.1 - Chronic pulmonary edema Status: Acute (12) Obstructive sleep apnea: Code(s): G47.33 - Obstructive sleep apnea (adult) (pediatric) Status: Acute Plan 79-year-old male with a past medical history of end-stage renal disease on dialysis Sunday, coronary artery disease status post CABG 2013, cardiac pacemaker due to 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 The patient reports that in the late afternoon he felt as if he could not move any of his extremities. The senior living staff at also reported the patient had had some blurred vision patient did not mention mention vision changes at the time of my evaluation. On the scene the patient was found to be hypoxic. General weakness and blurred vision Patient presented weakness and stated he could not move any of his extremities for about [address] head shows no acute intracranial issues Possible due to hypoxemia needs to rule out neuro issues, consult neurologist for evaluation treatment Appreciate neurology's consultation, Neurology considers possible restriction on the shoulder pain Acute respiratory failure with hypoxemia Possible due to CHF exacerbation pulmonary edema and pneumonia Patient received Lasix in the ED, Consult disassembler product for dialysis Continue O2 therapy to keep pulse ox above 90 Patient is on 3 L oxygen via nasal cannular Community-acquired pneumonia X-ray suggest bilateral basal pneumonia Patient was placed on ceftriaxone and doxy IV Follow-up procalcitonin level End-stage renal disease on hemodialysis Overloaded upon arrival Consult disassembler product for dialysis Patient underwent hemodialysis yesterday, 3.4 L removed Will need hemodialysis tomorrow again Chronic anemia No obvious bleeding Resulting from chronic renal failure Management per disassembler product Type 2 diabetes Patient is on Lantus 6 units, lispro 5 units a.c. and sliding scale Controlled Subjective Date/time seen: 02/19/25 09:43 Interval history: Patient was examined after receiving the dialysis. Patient reports of feeling tired Review of Systems Review of Systems: 12 systems were reviewed with pertinent positives and negatives per HPI. Except as documented in the HPI, all other systems were reviewed and are negative. Exam Narrative: GENERAL: Pleasant, in no acute distress. Well-nourished. - EYES: EOMI. Anicteric. - HENT: Moist mucous membranes. - LUNGS: Coarse breath sound bilaterall y - CARDIOVASCULAR: Regular rate and rhyth m. No murmur. No JVD. - ABDOMEN: Soft, non-tender and non-dist ended. No palpable masses. - EXTREMITIES: No edema. Peripheral puls es 2+. Non-tender. - NEUROLOGIC: No focal neurological defi cits. CN II-XII grossly intact, able to move all extremities - PSYCHIATRIC: Awake, Alert and oriented x 3. Appropriate mood and affect. - SKIN: No rashes or lesions. Warm. - LYMPH: No cervical lymphadenopathy. Objective Data Vital Signs Vital Signs: Vital Signs - 24 hr 02/18/25 10:12 02/18/25 14:00 02/18/25 18:09 Temperature 96.8 F L Pulse Rate 75 74 80 Respiratory Rate 16 Blood Pressure 140/46 L Pulse Oximetry 100 Oxygen Delivery Oxygen Flow Rate Fraction of Inspired Oxygen 02/18/25 18:20 02/18/25 20:00 02/18/25 20:28 Temperature Pulse Rate 72 66 Respiratory Rate 20 Blood Pressure Pulse Oximetry 94 99 91 Oxygen Delivery Nasal Cannula Nasal Cannula Nasal Cannula Oxygen Flow Rate 2.5 3 2 Fraction of Inspired Oxygen 28 02/18/25 20:40 02/19/25 05:05 02/19/25 08:23 Temperature 97 F L 97.9 F Pulse Rate 78 79 Respiratory Rate 18 18 Blood Pressure 136/54 L 142/60 H Pulse Oximetry 97 96 Oxygen Delivery Oxygen Flow Rate 3 Fraction of Inspired Oxygen 02/19/25 08:23 02/19/25 08:33 02/19/25 08:45 Temperature 97.9 F Pulse Rate 75 55 L 52 L Respiratory Rate 18 Blood Pressure 157/68 H 154/57 H 134/82 Pulse Oximetry Oxygen Delivery Oxygen Flow Rate Fraction of Inspired Oxygen 02/19/25 09:00 02/19/25 09:15 02/19/25 09:30 Temperature Pulse Rate 77 69 75 Respiratory Rate Blood Pressure 141/49 H 154/55 H 122/61 Pulse Oximetry Oxygen Delivery Oxygen Flow Rate Fraction of Inspired Oxygen Intake/Output Intake/Output: Intake & Output 02/16/25 02/17/25 02/18/25 02/19/25 23:59 23:59 23:59 23:59 Intake Total 1450 1150 1637 Output Total 350 3500 Balance 1100 -2350 1637 Meds/Results Medications: Active Medications Generic Name Dose Route Start Last Admin Trade Name Freq PRN Reason Stop Dose Admin Acetaminophen 650 mg 02/15/25 23:52 02/18/25 18:16 Acetaminophen 325 Mg Tablet PO 650 mg Q4H PRN Administration Mild Pain (1-3) or Fever Amlodipine Besylate 10 mg 02/16/25 09:00 02/18/25 10:11 Amlodipine Besylate 10 Mg Tablet PO 10 mg DAILY DAVID Administration Amoxicillin/Clavulanate Potassium 1 tablet 02/19/25 09:00 Amoxicillin/Clavulanate K 500-125 Mg Tab PO 02/22/25 21:01 Q12HR DAVID Aspirin 81 mg 02/16/25 09:00 02/18/25 10:11 Aspirin 81 Mg Enteric Tablet PO 81 mg DAILY DAVID Administration Atorvastatin Calcium 20 mg 02/16/25 21:00 02/18/25 22:17 Atorvastatin 20 Mg Tablet PO 20 mg HS DAVID Administration Bisacodyl 10 mg 02/16/25 07:03 Bisacodyl 10 Mg Suppository RECTAL DAILY PRN constipation Carvedilol 25 mg 02/16/25 08:00 02/18/25 18:09 Carvedilol 25 Mg Tablet PO 25 mg BIDWM DAVID Administration Cinacalcet 90 mg 02/16/25 09:00 02/18/25 10:11 Cinacalcet 30 Mg Tablet PO 03/18/25 08:59 90 mg DAILY DAVID Administration Dextrose 12.5 gm 02/16/25 08:20 Dextrose 50% 25 Gm/50 Ml Syringe IV PUSH PRN PRN Hypoglycemia Protocol Doxycycline Hyclate 100 mg 02/18/25 21:00 02/18/25 22:17 Doxycycline Hyclate 100 Mg Tablet PO 02/20/25 21:01 100 mg Q12HR DAVID Administration Epoetin David-epbx 10,000 units 02/19/25 18:16 Epoetin David-Epbx 10,000 Units/Ml Vial IV PUSH 02/19/25 18:17 ONCE ONE Finasteride 5 mg 02/16/25 09:00 02/18/25 10:11 Finasteride 5 Mg Tablet PO 5 mg QAM DAVID Administration Furosemide 80 mg 02/16/25 09:00 02/18/25 18:09 Furosemide 80 Mg Tablet PO 80 mg BID DAVID Administration Gabapentin 100 mg 02/16/25 09:00 02/18/25 18:09 Gabapentin 100 Mg Capsule PO 100 mg TID DAVID Administration Glucagon 1 mg 02/16/25 08:20 Glucagon For Inj 1 Mg Vial IM PRN PRN Hypoglycemia Protocol Glucose 15 gm 02/16/25 08:20 Glucose Oral Gel 15 Gm Of Glucse In 37.5 Gm Tube PO PRN PRN Hypoglycemia Protocol Heparin Sodium (Porcine) 5,000 units 02/16/25 09:00 02/18/25 22:17 Heparin Sodium 5,000 Units/Ml Vial SUB-Q 5,000 units Q12HR DAVID Administration Dextrose 1,000 mls @ 100 mls/hr 02/16/25 08:20 Dextrose 5% 1,000 Ml IVPB PRN PRN Hypoglycemia Protocol Albumin Human 50 mls @ 999 mls/hr 02/17/25 06:27 Albutein IVPB 03/19/25 06:26 Q10M PRN HYPOTENSION Insulin Aspart 4 units 02/16/25 08:00 02/18/25 18:15 Insulin Aspart (*Bkc) 100 Units/Ml SUB-Q 4 units TIDWM DAVID Administration Insulin Aspart 2 - 5 units 02/16/25 12:00 02/18/25 16:51 Insulin Aspart (*Bkc) 100 Units/Ml SUB-Q Not Given TIDWM DAVID Protocol Insulin Glargine 6 units 02/16/25 18:00 02/18/25 18:15 Insulin Glargine (*Bkc) 100 Units/Ml SUB-Q 6 units QPM DAVID Administration Loratadine 10 mg 02/16/25 09:00 02/18/25 10:12 Loratadine 10 Mg Tablet PO 10 mg DAILY DAVID Administration Loratadine 10 mg 02/16/25 07:03 Loratadine 10 Mg Tablet PO DAILY PRN itching Pentoxifylline 400 mg 02/16/25 18:00 02/18/25 18:10 Pentoxifylline 400 Mg Tabcr PO 400 mg QPM DAVID Administration Sevelamer Carbonate 3.2 gm 02/16/25 08:00 02/18/25 18:10 Sevelamer Carbonate 0.8 Gm Oral Powder Packet PO 3.2 gm TIDWM DAVID Administration Silver Sulfadiazine 1 applic 02/16/25 09:00 02/18/25 19:01 Silver Sulfadiazine 1% Cr 50 Gm Jar (*Bkc) TOPICAL 1 applic QAM DAVID Administration Tamsulosin HCl 0.4 mg 02/16/25 21:00 02/18/25 22:17 Tamsulosin Hcl 0.4 Mg Capsule PO 0.4 mg QHS DAVID Administration Radiology Results: ITS Impressions Head CT 02/15/25 19:38 IMPRESSION: No acute intracranial findings. Chest X-Ray 02/18/25 20:32 IMPRESSION: Cardiomegaly with cardiac decompensation and pulmonary edema. Superimposed pneumonia is highly suggestive. Clinical correlation advised. Labs Labs: Laboratory Results - last 24 hr 02/17/25 02/18/25 02/18/25 04:07 11:39 16:14 WBC RBC Hgb Hct MCV MCH MCHC RDW Plt Count MPV Immature Gran % (Auto) Neut % (Auto) Lymph % (Auto) [place] % (Auto) Eos % (Auto) Baso % (Auto) Lymph # (Auto) [place] # (Auto) Eos # (Auto) Baso # (Auto) Abs Immat Gran (auto) Absolute Neuts (auto) Absolute Nucleated RBC Band Neutrophils % Nucleated RBC % Platelet Estimate Hypochromasia Anisocytosis Schistocytes Sodium Potassium Chloride Carbon Dioxide Anion Gap BUN Creatinine Estim Creat Clear Calc Estimated GFR Glucose POC Capillary Glucose 122 H 115 H Calcium Phosphorus Magnesium Total Bilirubin AST ALT Alkaline Phosphatase Total Protein Albumin Homocysteine 36.9 H 02/18/25 02/19/25 02/19/25 20:44 05:50 08:07 WBC 4.5 RBC 3.09 L Hgb 8.4 L Hct 28.9 L MCV 93.5 MCH 27.2 MCHC 29.1 L RDW 18.4 H Plt Count 172 MPV 11.2 H Immature Gran % (Auto) 0.4 Neut % (Auto) 66.6 Lymph % (Auto) 16.4 L [place] % (Auto) 10.8 H Eos % (Auto) 4.0 Baso % (Auto) 1.8 H Lymph # (Auto) 0.74 L [place] # (Auto) 0.5 Eos # (Auto) 0.2 Baso # (Auto) 0.1 Abs Immat Gran (auto) 0.02 Absolute Neuts (auto) 3.0 Absolute Nucleated RBC 0.000 Band Neutrophils % TNP Nucleated RBC % 0.0 Platelet Estimate Adequate Hypochromasia 1+ Anisocytosis 1+ Schistocytes None seen Sodium 133 L Potassium 4.7 Chloride 96 L Carbon Dioxide 30 Anion Gap 7 BUN 43 H D Creatinine 6.63 H Estim Creat Clear Calc 8 Estimated GFR 8 L Glucose 91 POC Capillary Glucose 130 H 96 Calcium 10.8 H Phosphorus 6.4 H Magnesium 2.4 H Total Bilirubin 0.3 AST 12 L ALT 9 Alkaline Phosphatase 60 Total Protein 6.0 L Albumin 3.4 L Homocysteine Quality VTE Prophylaxis VTE prophylaxis: pharmacologic ordered (Heparin 5000 units subQ q.12 hours) Hospitalist MIPS Advance Care Plan I have confirmed that the patient's Advanced Care Plan is present, code status is documented, or surrogate decision maker is listed in patient medical record.: Yes Medication Reconciliation I have utilized all available resources to obtain, update and review the patients current medications (includes all prescriptions, OTC, herbals, cannabis, and nutritional supplements).: Yes
[2025-02-19] MEDS: EPOETIN ALFA-EPBX 10,000 UNITS/ML VIAL 10000 UNITS IV PUSH (12:30)
[2025-02-19 12:44] LABS: Methylmalonic Acid 963 nmol/L (69-390)
[2025-02-19 13:31] LABS: Glucose Point of Care 82 mg/dl (65-105)
[2025-02-19] MEDS: DOXYCYCLINE HYCLATE 100 MG TABLET PO ×2 (13:31→22:00)
[2025-02-19] MEDS: amLODIPine BESYLATE 10 MG TABLET PO (13:31)
[2025-02-19] MEDS: CINACALCET 30 MG TABLET 90 MG PO (13:31)
[2025-02-19] MEDS: ASPIRIN 81 MG ENTERIC TABLET PO (13:31)
[2025-02-19] MEDS: AMOXICILLIN/CLAVULANATE K 500-125 MG TAB 1 TABLET PO ×2 (13:31→22:00)
[2025-02-19] MEDS: LORATADINE 10 MG TABLET PO (13:32)
[2025-02-19] MEDS: FINASTERIDE 5 MG TABLET PO (13:32)
[2025-02-19] MEDS: SEVELAMER CARBONATE 0.8 GM ORAL POWDER PACKET 3.2 GM PO ×2 (13:33→17:47)
[2025-02-19] MEDS: GABAPENTIN 100 MG CAPSULE PO ×2 (13:33→17:48)
[2025-02-19] MEDS: INSULIN ASPART (*BKC) 100 UNITS/ML SUB-Q ×2 (13:34→17:52)
[2025-02-19] MEDS: SILVER SULFADIAZINE 1% CR 50 GM JAR (*BKC) 1 APPLIC TOPICAL (13:37)
[2025-02-19 16:45] LABS: Glucose Point of Care 98 mg/dl (65-105)
[2025-02-19] MEDS: PENTOXIFYLLINE 400 MG TABCR PO (17:48)
[2025-02-19] MEDS: FUROSEMIDE 80 MG TABLET PO (17:48)
[2025-02-19] MEDS: carvediloL 25 MG TABLET PO (17:48)
[2025-02-19] MEDS: INSULIN GLARGINE (*BKC) 100 UNITS/ML 6 UNITS SUB-Q (17:51)
[2025-02-19] MEDS: HEPARIN SODIUM 5,000 UNITS/ML VIAL 5000 UNITS SUB-Q (21:59)
[2025-02-19] MEDS: ATORVASTATIN 20 MG TABLET PO (22:00)
[2025-02-19] MEDS: TAMSULOSIN HCL 0.4 MG CAPSULE PO (22:00)
[2025-02-20] VITALS (7 sets, daily range): BP systolic 128–142; BP diastolic 59–66; PULSE 65–88; RESP 14–16; TEMP 36.1–37; O2SAT 94–100
[2025-02-20 04:28] LABS: Glucose Point of Care 151 mg/dl (65-105)
[2025-02-20 05:42] LABS: Basophils Absolute Auto 0.1 K/mm3 (0.0-0.1); Basophils Percent Auto 1.1 % (0.2-1.2); Eosinophils Absolute Auto 0.1 K/mm3 (0-0.3); Eosinophils Percent Auto 2.5 % (0-4.4); Hematocrit 29.8 % (42.0-52.0); Hemoglobin 8.8 g/dL (14.0-18.0); Immature Granulocyte Absolute 0.02 K/mm3 (0.00-0.031); Immature Granulocyte Percent A 0.4 % (0-0.5); Lymphocytes Absolute Auto 0.63 K/mm3 (0.9-3.2); Lymphocytes Percent Auto 11.5 % (18.3-44.2); Mean Corpuscular HGB Conc 29.5 g/dl (32-36); Mean Corpuscular Volume 91.4 fl (80-100); Mean Platelet Volume 11.2 fl (7.4-10.4); Monocytes Absolute Auto 0.7 K/mm3 (0.1-0.6); Monocytes Percent Auto 13.5 % (2.6-8.5); Neutrophils Absolute Auto 3.9 K/mm3 (1.3-6.7); Platelet Count Result 206 k/mm3 (150-375); Red Blood Count 3.26 M/mm3 (4.6-6.20); Red Cell Distribution Width 18.5 % (11.5-14.5); White Blood Count 5.5 K/mm3 (4.5-10.0)
[2025-02-20 05:57] LABS: Alanine Aminotransferase 9 U/L (6-50); Albumin Level 3.4 g/dL (3.5-5.1); Alkaline Phosphatase 64 U/L (38-126); Anion Gap 7 mmol/L (4-12); Aspartate Amino Transferase 12 U/L (17-59); Bilirubin,Total 0.3 mg/dL (0.2-1.3); Blood Urea Nitrogen 31 mg/dL (9-20); Calcium 10.6 mg/dL (8.4-10.2); Carbon Dioxide 28 mmol/L (22-30); Chloride 100 mmol/L (98-107); Estimated CRCL calculation 11 ml/min; Estimated Glomerular Filt Rate 11; Glucose 103 mg/dL (65-110); Magnesium 2.4 mg/dL (1.6-2.3); Phosphorus 4.8 mg/dL (2.5-4.5); Potassium 4.3 mmol/L (3.4-5.0); Sodium 135 mmol/L (137-145)
[2025-02-20 06:31] LABS: Anisocytosis 1+; Hypochromasia 1+; Platelet Estimate Adequate (Adequate); Schistocytes None Seen
[2025-02-20 08:23] LABS: Glucose Point of Care 88 mg/dl (65-105)
[2025-02-20] MEDS: carvediloL 25 MG TABLET PO ×2 (08:42→17:02)
[2025-02-20] MEDS: SEVELAMER CARBONATE 0.8 GM ORAL POWDER PACKET 3.2 GM PO ×3 (08:43→17:05)
[2025-02-20] MEDS: SILVER SULFADIAZINE 1% CR 50 GM JAR (*BKC) 1 APPLIC TOPICAL (08:45)
[2025-02-20] MEDS: AMOXICILLIN/CLAVULANATE K 500-125 MG TAB 1 TABLET PO ×2 (08:47→20:50)
[2025-02-20] MEDS: FINASTERIDE 5 MG TABLET PO (08:48)
[2025-02-20] MEDS: ACETAMINOPHEN 325 MG TABLET 650 MG PO (08:48)
[2025-02-20] MEDS: ASPIRIN 81 MG ENTERIC TABLET PO (08:49)
[2025-02-20] MEDS: CINACALCET 30 MG TABLET 90 MG PO (08:52)
[2025-02-20] MEDS: amLODIPine BESYLATE 10 MG TABLET PO (08:53)
[2025-02-20] MEDS: GABAPENTIN 100 MG CAPSULE PO ×3 (08:53→17:02)
[2025-02-20] MEDS: DOXYCYCLINE HYCLATE 100 MG TABLET PO ×2 (08:53→20:50)
[2025-02-20] MEDS: FUROSEMIDE 80 MG TABLET PO ×2 (08:53→17:02)
[2025-02-20] MEDS: LORATADINE 10 MG TABLET PO (08:54)
[2025-02-20] MEDS: HEPARIN SODIUM 5,000 UNITS/ML VIAL 5000 UNITS SUB-Q ×2 (09:40→20:51)
--- NOTE | 2025-02-20 10:08 | P.PNNP_ITS ---
Progress Note: A&P Assessment and Plan (1) End stage renal disease: Code(s): N18.6 - End stage renal disease Status: Chronic Assessment and Plan: * HD tomorrow * continue T/T/S outpatient dialysis schedule while hospitalized * follow electrolytes, volume status, and clearance (2) Acute respiratory failure with hypoxia: Code(s): J96.01 - Acute respiratory failure with hypoxia Status: Acute Assessment and Plan: * improving * due to several issues: * mild pulmonary edema * suspected pneumonia * chronic CHF * COPD * relative anemia * fluid removal/ultrafiltration with dialysis as tolerated * on antibiotics, nebulizer treatments, and supplemental oxygen * wean supplemental oxygen as tolerated * follow respiratory status (3) Upper extremity weakness: Code(s): R29.898 - Other symptoms and signs involving the musculoskeletal system Status: Acute Assessment and Plan: * as noted on presentation * CT of head negative for acute process * due to hypoxia? * Neurology recommendations noted (4) Pneumonia: Qualifiers: Laterality: unspecified laterality Lung location: unspecified part of lung Pneumonia type: due to unspecified organism Qualified Code(s): J18.9 - Pneumonia, unspecified organism Code(s): J18.9 - Pneumonia, unspecified organism Status: Acute Assessment and Plan: * admission CXR with suggestion of pneumonia * on antibiotic therapy * follow culture data - negative to date (5) Atrial fibrillation: Code(s): I48.91 - Unspecified atrial fibrillation Status: Chronic Assessment and Plan: * rate control strategy * not on anticoagulation (presumably due to issues with anemia/GI bleed?) (6) Anemia: Code(s): D64.9 - Anemia, unspecified Status: Chronic Assessment and Plan: * due to ESRD * Epogen with HD * follow trend of H/H (7) Essential (primary) hypertension: Code(s): I10 - Essential (primary) hypertension Status: Chronic Assessment and Plan: * reasonable control at this time * follow trend of hemodynamics (8) IDDM (insulin dependent diabetes mellitus): Status: Chronic Assessment and Plan: * follow accu-cheks * glycemic control per hospitalists Will continue to follow. L Subjective Date/time seen: 02/20/25 10:08 Interval history: Follow-up for end stage renal disease on hemodialysis. Tolerated dialysis treatment yesterday without any issues or problems; major complaint is that of weakness (particularly in his upper extremities) and fatigue at the time of my visit; no other issues/events overnight or earlier this morning; no apparent distress noted; feels reasonably well. Exam 2 Narrative: General: elderly WD/WN male in NAD Heart: normal S1 and S2; no rub Lungs: coarse breath sounds at bases Abdomen: soft, nontender, nondistended, positive bowel sounds Extremities: no cyanosis or clubbing; trace - 1+ edema Skin: no nodules Objective Data Vital Signs Vital Signs: Vital Signs Temp Pulse Resp BP Pulse Ox O2 Del Method O2 Flow Rate 02/20/25 08:42 88 02/20/25 06:00 98.1 F 80 16 142/66 H 94 02/19/25 22:38 96 Nasal Cannula 3 02/19/25 22:25 97.8 F 72 18 138/51 L 99 02/19/25 17:48 63 02/19/25 13:55 96.1 F L 67 18 132/54 L 98 02/19/25 13:00 97.9 F 68 18 136/68 02/19/25 12:34 61 143/50 H 02/19/25 12:15 71 125/70 02/19/25 12:00 71 125/68 02/19/25 11:45 69 121/52 L Intake/Output Intake/Output: Intake & Output 02/17/25 02/18/25 02/19/25 02/20/25 23:59 23:59 23:59 23:59 Intake Total 1150 1637 620 480 Output Total 3500 4000 Balance -2350 1637 -3380 480 Meds/Results Medications: Active Medications Generic Name Dose Route Start Last Admin Trade Name Natanq PRN Reason Stop Dose Admin Acetaminophen 650 mg 02/15/25 23:52 02/20/25 08:48 Acetaminophen 325 Mg Tablet PO 650 mg Q4H PRN Administration Mild Pain (1-3) or Fever Amlodipine Besylate 10 mg 02/16/25 09:00 02/20/25 08:53 Amlodipine Besylate 10 Mg Tablet PO 10 mg DAILY DAVID Administration Amoxicillin/Clavulanate Potassium 1 tablet 02/19/25 09:00 02/20/25 08:47 Amoxicillin/Clavulanate K 500-125 Mg Tab PO 02/22/25 21:01 1 tablet Q12HR DAVID Administration Aspirin 81 mg 02/16/25 09:00 02/20/25 08:49 Aspirin 81 Mg Enteric Tablet PO 81 mg DAILY DAVID Administration Atorvastatin Calcium 20 mg 02/16/25 21:00 02/19/25 22:00 Atorvastatin 20 Mg Tablet PO 20 mg HS DAVID Administration Bisacodyl 10 mg 02/16/25 07:03 Bisacodyl 10 Mg Suppository RECTAL DAILY PRN constipation Carvedilol 25 mg 02/16/25 08:00 02/20/25 08:42 Carvedilol 25 Mg Tablet PO 25 mg BIDWM DAVID Administration Cinacalcet 90 mg 02/16/25 09:00 02/20/25 08:52 Cinacalcet 30 Mg Tablet PO 03/18/25 08:59 90 mg DAILY DAVID Administration Dextrose 12.5 gm 02/16/25 08:20 Dextrose 50% 25 Gm/50 Ml Syringe IV PUSH PRN PRN Hypoglycemia Protocol Doxycycline Hyclate 100 mg 02/18/25 21:00 02/20/25 08:53 Doxycycline Hyclate 100 Mg Tablet PO 02/20/25 21:01 100 mg Q12HR DAVID Administration Finasteride 5 mg 02/16/25 09:00 02/20/25 08:48 Finasteride 5 Mg Tablet PO 5 mg QAM DAVID Administration Furosemide 80 mg 02/16/25 09:00 02/20/25 08:53 Furosemide 80 Mg Tablet PO 80 mg BID DAVID Administration Gabapentin 100 mg 02/16/25 09:00 02/20/25 08:53 Gabapentin 100 Mg Capsule PO 100 mg TID DAVID Administration Glucagon 1 mg 02/16/25 08:20 Glucagon For Inj 1 Mg Vial IM PRN PRN Hypoglycemia Protocol Glucose 15 gm 02/16/25 08:20 Glucose Oral Gel 15 Gm Of Glucse In 37.5 Gm Tube PO PRN PRN Hypoglycemia Protocol Heparin Sodium (Porcine) 5,000 units 02/16/25 09:00 02/20/25 09:40 Heparin Sodium 5,000 Units/Ml Vial SUB-Q 5,000 units Q12HR DAVID Administration Dextrose 1,000 mls @ 100 mls/hr 02/16/25 08:20 Dextrose 5% 1,000 Ml IVPB PRN PRN Hypoglycemia Protocol Albumin Human 50 mls @ 999 mls/hr 02/17/25 06:27 Albutein IVPB 03/19/25 06:26 Q10M PRN HYPOTENSION Insulin Aspart 4 units 02/16/25 08:00 02/20/25 09:38 Insulin Aspart (*Bkc) 100 Units/Ml SUB-Q Not Given TIDWM DAVID Insulin Aspart 2 - 5 units 02/16/25 12:00 02/20/25 08:43 Insulin Aspart (*Bkc) 100 Units/Ml SUB-Q Not Given TIDWM [facility] Protocol Insulin Glargine 6 units 02/16/25 18:00 02/19/25 17:51 Insulin Glargine (*Bkc) 100 Units/Ml SUB-Q 6 units QPM DAVID Administration Loratadine 10 mg 02/16/25 09:00 02/20/25 08:54 Loratadine 10 Mg Tablet PO 10 mg DAILY DAVID Administration Loratadine 10 mg 02/16/25 07:03 Loratadine 10 Mg Tablet PO DAILY PRN itching Pentoxifylline 400 mg 02/16/25 18:00 02/19/25 17:48 Pentoxifylline 400 Mg Tabcr PO 400 mg QPM DAVID Administration Sevelamer Carbonate 3.2 gm 02/16/25 08:00 02/20/25 08:43 Sevelamer Carbonate 0.8 Gm Oral Powder Packet PO 3.2 gm TIDWM DAVID Administration Silver Sulfadiazine 1 applic 02/16/25 09:00 02/20/25 08:45 Silver Sulfadiazine 1% Cr 50 Gm Jar (*Bkc) TOPICAL 1 applic QAM DAVID Administration Tamsulosin HCl 0.4 mg 02/16/25 21:00 02/19/25 22:00 Tamsulosin Hcl 0.4 Mg Capsule PO 0.4 mg QHS DAVID Administration Radiology Results: ITS Impressions Head CT 02/15/25 19:38 IMPRESSION: No acute intracranial findings. Chest X-Ray 02/18/25 20:32 IMPRESSION: Cardiomegaly with cardiac decompensation and pulmonary edema. Superimposed pneumonia is highly suggestive. Clinical correlation advised. Labs Labs: Laboratory Tests 02/20/25 05:25 02/20/25 05:25 Calcium 10.6 H Phosphorus 4.8 H Magnesium 2.4 H Total Bilirubin 0.3 AST 12 L ALT 9 Alkaline Phosphatase 64 Total Protein 6.0 L Albumin 3.4 L
--- NOTE | 2025-02-20 10:37 | PCNFU ---
Nutrition Follow-Up Complete: Unintentional weight shifts related to hemodialysis as evidenced by weight changes 9%/1 month Goal:Adequate PO intake at least 75% meals and supplements Pt current nutrition is Renal / diabetic diet, Nepro shakes BID. Nutrition recommendation: assist with meals Last recorded weight is 80.9 kg. Bowel Motility: +BM 5/2 Labs Reviewed: Hgb:8.8, HCT:29.8, Alb:3.4, NA:135, GFR:11, BUN:31, Cr:5.01, M.4 Meds Noted: lantus, novolog Skin: WNL Additional Notes: Pt continues on a renal diabetic diet, intake 75% most meals, noted nursing stated pt needs assistance with feeding each meal. Pt reports good appetite overall. Encourage intake, agree with diet orders Monitoring intakes, weights, labs, supplement tolerance, plan of care Follow up in 5 days
[2025-02-20 11:55] LABS: Glucose Point of Care 110 mg/dl (65-105)
--- NOTE | 2025-02-20 13:04 | PC.NURSE ---
JIMMY Nicolas scanned in medications for patient and then left room with [facility]OW to receive a cosign from JIMMY Bain. When JIMMY Bain put in her pin for cosign for insulin, an error code showed and when JIMMY Nicolas returned to room from [place] the medications were no longer scanned and showed no activity. JIMMY Nicolas had to scan what medications were able to be scanned still, but then had to manually put medications in for the ones that were torn.
--- NOTE | 2025-02-20 13:58 | P.PNIM_ITS ---
Progress Note: A&P Assessment and Plan (1) IDDM (insulin dependent diabetes mellitus): Status: Chronic (2) Pressure ulcer of left heel, unstageable: Code(s): L89.620 - Pressure ulcer of left heel, unstageable Status: Acute (3) Pneumonia: Qualifiers: Laterality: unspecified laterality Lung location: unspecified part of lung Pneumonia type: due to unspecified organism Qualified Code(s): J18.9 - Pneumonia, unspecified organism Code(s): J18.9 - Pneumonia, unspecified organism Status: Acute (4) Seizure disorder: Code(s): G40.909 - Epilepsy, unspecified, not intractable, without status epilepticus Status: Acute (5) Acute hypoxic respiratory failure: Code(s): J96.01 - Acute respiratory failure with hypoxia Status: Acute (6) Type 2 diabetes mellitus, with long-term current use of insulin: Qualifiers: Diabetes mellitus complication status: with neurologic complications Diabetes mellitus complication detail: with polyneuropathy Qualified Code(s): E11.42 - Type 2 diabetes mellitus with diabetic polyneuropathy; Z79.4 - termite renewal inspector (current) use of insulin Code(s): E11.9 - Type 2 diabetes mellitus without complications; Z79.4 - termite renewal inspector (current) use of insulin Status: Acute (7) CAD in [place] artery: Code(s): I25.10 - Atherosclerotic heart disease of [place] coronary artery without angina pectoris Status: Acute (8) End-stage renal disease on hemodialysis: Code(s): N18.6 - End stage renal disease; Z99.2 - Dependence on renal dialysis Status: Acute (9) Weakness: Code(s): R53.1 - Weakness Status: Acute (10) Elevated troponin: Code(s): R79.89 - Other specified abnormal findings of blood chemistry Status: Acute (11) Pulmonary edema: Qualifiers: Chronicity: acute Qualified Code(s): J81.0 - Acute pulmonary edema Code(s): J81.1 - Chronic pulmonary edema Status: Acute (12) Obstructive sleep apnea: Code(s): G47.33 - Obstructive sleep apnea (adult) (pediatric) Status: Acute Plan 79-year-old male with a past medical history of end-stage renal disease on dialysis Sunday, coronary artery disease status post CABG 2013, 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 The patient reports that in the late afternoon he felt as if he could not move any of his extremities. The senior living staff at also reported the patient had had some blurred vision patient did not mention mention vision changes at the time of my evaluation. On the scene the patient was found to be hypoxic. General weakness and blurred vision Patient presented weakness and stated he could not move any of his extremities for about [address] head shows no acute intracranial issues Possible due to hypoxemia needs to rule out neuro issues, consult neurologist for evaluation treatment Appreciate neurology's consultation, Neurology considers possible restriction on the shoulder pain Suspect cervical disc disease. Cervical CT from December 2024 showed chronic compression fracture of C4 and C5 along with multilevel face it joint disease and uncovertebral joint osteoarthritis changes. Has a pacemaker hence cannot get an MRI. Will get CT cervical spine repeated Bilateral shoulder x-ray 0 11/15 were unremarkable. Acute respiratory failure with hypoxemia Possible due to CHF exacerbation pulmonary edema and pneumonia Patient received Lasix in the ED, Consult senior hardware design engineer for dialysis Continue O2 therapy to keep pulse ox above 90 Patient is on 3 L oxygen via nasal cannular # status post pacemaker implantation sinus node dysfunction Community-acquired pneumonia X-ray suggest bilateral basal pneumonia Patient was placed on ceftriaxone and doxy IV Follow-up procalcitonin level End-stage renal disease on hemodialysis Overloaded upon arrival Consult senior hardware design engineer for dialysis Patient underwent hemodialysis yesterday, 3.4 L removed Continue inpatient hemodialysis Chronic anemia No obvious bleeding Resulting from chronic renal failure Management per senior hardware design engineer Type 2 diabetes Patient is on Lantus 6 units, lispro 5 units a.c. and sliding scale Controlled Subjective Date/time seen: 02/20/25 13:58 Interval history: No overnight events. Upper arms are weak. Denies any other complaints. Review of Systems Review of Systems: All systems reviewed & are unremarkable except as noted in HPI and below Exam Narrative: GENERAL: Pleasant, in no acute distress. Well-nourished. - EYES: EOMI. Anicteric. - HENT: Moist mucous membranes. - LUNGS: Coarse breath sound bilaterall y - CARDIOVASCULAR: Regular rate and rhyth m. No murmur. No JVD. - ABDOMEN: Soft, non-tender and non-dist ended. No palpable masses. - EXTREMITIES: No edema. Peripheral puls es 2+. Non-tender. - NEUROLOGIC: No focal neurological defi cits. CN II-XII grossly intact, upper extremities are weak bilaterally - PSYCHIATRIC: Awake, Alert and oriented x 3. Appropriate mood and affect. - SKIN: No rashes or lesions. Warm. - LYMPH: No cervical lymphadenopathy. Objective Data Vital Signs Vital Signs: Vital Signs - 24 hr 02/19/25 17:48 02/19/25 22:25 02/19/25 22:38 Temperature 97.8 F Pulse Rate 63 72 Respiratory Rate 18 Blood Pressure 138/51 L Pulse Oximetry 99 96 Oxygen Delivery Nasal Cannula Oxygen Flow Rate 3 02/20/25 06:00 02/20/25 08:30 02/20/25 08:42 Temperature 98.1 F Pulse Rate 80 88 Respiratory Rate 16 Blood Pressure 142/66 H Pulse Oximetry 94 94 Oxygen Delivery Nasal Cannula Oxygen Flow Rate 2 Intake/Output Intake/Output: Intake & Output 02/17/25 02/18/25 02/19/25 02/20/25 23:59 23:59 23:59 23:59 Intake Total 1150 1637 620 600 Output Total 3500 4000 Balance -2350 1637 -3380 600 Meds/Results Medications: Active Medications Generic Name Dose Route Start Last Admin Trade Name Freq PRN Reason Stop Dose Admin Acetaminophen 650 mg 02/15/25 23:52 02/20/25 08:48 Acetaminophen 325 Mg Tablet PO 650 mg Q4H PRN Administration Mild Pain (1-3) or Fever Amlodipine Besylate 10 mg 02/16/25 09:00 02/20/25 08:53 Amlodipine Besylate 10 Mg Tablet PO 10 mg DAILY DAVID Administration Amoxicillin/Clavulanate Potassium 1 tablet 02/19/25 09:00 02/20/25 08:47 Amoxicillin/Clavulanate K 500-125 Mg Tab PO 02/22/25 21:01 1 tablet Q12HR DAVID Administration Aspirin 81 mg 02/16/25 09:00 02/20/25 08:49 Aspirin 81 Mg Enteric Tablet PO 81 mg DAILY DAVID Administration Atorvastatin Calcium 20 mg 02/16/25 21:00 02/19/25 22:00 Atorvastatin 20 Mg Tablet PO 20 mg HS DAVID Administration Bisacodyl 10 mg 02/16/25 07:03 Bisacodyl 10 Mg Suppository RECTAL DAILY PRN constipation Carvedilol 25 mg 02/16/25 08:00 02/20/25 08:42 Carvedilol 25 Mg Tablet PO 25 mg BIDWM DAVID Administration Cinacalcet 90 mg 02/16/25 09:00 02/20/25 08:52 Cinacalcet 30 Mg Tablet PO 03/18/25 08:59 90 mg DAILY DAVID Administration Dextrose 12.5 gm 02/16/25 08:20 Dextrose 50% 25 Gm/50 Ml Syringe IV PUSH PRN PRN Hypoglycemia Protocol Doxycycline Hyclate 100 mg 02/18/25 21:00 02/20/25 08:53 Doxycycline Hyclate 100 Mg Tablet PO 02/20/25 21:01 100 mg Q12HR DAVID Administration Finasteride 5 mg 02/16/25 09:00 02/20/25 08:48 Finasteride 5 Mg Tablet PO 5 mg QAM DAVID Administration Furosemide 80 mg 02/16/25 09:00 02/20/25 08:53 Furosemide 80 Mg Tablet PO 80 mg BID DAVID Administration Gabapentin 100 mg 02/16/25 09:00 02/20/25 12:09 Gabapentin 100 Mg Capsule PO 100 mg TID DAVID Administration Glucagon 1 mg 02/16/25 08:20 Glucagon For Inj 1 Mg Vial IM PRN PRN Hypoglycemia Protocol Glucose 15 gm 02/16/25 08:20 Glucose Oral Gel 15 Gm Of Glucse In 37.5 Gm Tube PO PRN PRN Hypoglycemia Protocol Heparin Sodium (Porcine) 5,000 units 02/16/25 09:00 02/20/25 09:40 Heparin Sodium 5,000 Units/Ml Vial SUB-Q 5,000 units Q12HR DAVID Administration Dextrose 1,000 mls @ 100 mls/hr 02/16/25 08:20 Dextrose 5% 1,000 Ml IVPB PRN PRN Hypoglycemia Protocol Albumin Human 50 mls @ 999 mls/hr 02/17/25 06:27 Albutein IVPB 03/19/25 06:26 Q10M PRN HYPOTENSION Insulin Aspart 4 units 02/16/25 08:00 02/20/25 09:38 Insulin Aspart (*Bkc) 100 Units/Ml SUB-Q Not Given TIDWM DAVID Insulin Aspart 2 - 5 units 02/16/25 12:00 02/20/25 12:09 Insulin Aspart (*Bkc) 100 Units/Ml SUB-Q Not Given TIDWM [facility] Protocol Insulin Glargine 6 units 02/16/25 18:00 02/19/25 17:51 Insulin Glargine (*Bkc) 100 Units/Ml SUB-Q 6 units QPM DAVID Administration Loratadine 10 mg 02/16/25 09:00 02/20/25 08:54 Loratadine 10 Mg Tablet PO 10 mg DAILY DAVID Administration Loratadine 10 mg 02/16/25 07:03 Loratadine 10 Mg Tablet PO DAILY PRN itching Pentoxifylline 400 mg 02/16/25 18:00 02/19/25 17:48 Pentoxifylline 400 Mg Tabcr PO 400 mg QPM DAVID Administration Sevelamer Carbonate 3.2 gm 02/16/25 08:00 02/20/25 12:10 Sevelamer Carbonate 0.8 Gm Oral Powder Packet PO 3.2 gm TIDWM DAVID Administration Silver Sulfadiazine 1 applic 02/16/25 09:00 02/20/25 08:45 Silver Sulfadiazine 1% Cr 50 Gm Jar (*Bkc) TOPICAL 1 applic QAM DAVID Administration Tamsulosin HCl 0.4 mg 02/16/25 21:00 02/19/25 22:00 Tamsulosin Hcl 0.4 Mg Capsule PO 0.4 mg QHS DAVID Administration Radiology Results: ITS Impressions Head CT 02/15/25 19:38 IMPRESSION: No acute intracranial findings. Chest X-Ray 02/18/25 20:32 IMPRESSION: Cardiomegaly with cardiac decompensation and pulmonary edema. Superimposed pneumonia is highly suggestive. Clinical correlation advised. Labs Labs: Laboratory Results - last 24 hr 02/19/25 02/19/25 02/20/25 16:32 19:42 05:25 WBC 5.5 RBC 3.26 L Hgb 8.8 L Hct 29.8 L MCV 91.4 MCH 27.0 MCHC 29.5 L RDW 18.5 H Plt Count 206 MPV 11.2 H Immature Gran % (Auto) 0.4 Neut % (Auto) 71.0 Lymph % (Auto) 11.5 L [place] % (Auto) 13.5 H Eos % (Auto) 2.5 Baso % (Auto) 1.1 Lymph # (Auto) 0.63 L [place] # (Auto) 0.7 H Eos # (Auto) 0.1 Baso # (Auto) 0.1 Abs Immat Gran (auto) 0.02 Absolute Neuts (auto) 3.9 Absolute Nucleated RBC 0.000 Band Neutrophils % Not Reportable Nucleated RBC % 0.0 Platelet Estimate Adequate Hypochromasia 1+ Anisocytosis 1+ Schistocytes None seen Sodium 135 L Potassium 4.3 Chloride 100 Carbon Dioxide 28 Anion Gap 7 BUN 31 H D Creatinine 5.07 H Estim Creat Clear Calc 11 Estimated GFR 11 L Glucose 103 POC Capillary Glucose 98 151 H Calcium 10.6 H Phosphorus 4.8 H Magnesium 2.4 H Total Bilirubin 0.3 AST 12 L ALT 9 Alkaline Phosphatase 64 Total Protein 6.0 L Albumin 3.4 L 02/20/25 02/20/25 08:14 11:46 WBC RBC Hgb Hct MCV MCH MCHC RDW Plt Count MPV Immature Gran % (Auto) Neut % (Auto) Lymph % (Auto) [place] % (Auto) Eos % (Auto) Baso % (Auto) Lymph # (Auto) [place] # (Auto) Eos # (Auto) Baso # (Auto) Abs Immat Gran (auto) Absolute Neuts (auto) Absolute Nucleated RBC Band Neutrophils % Nucleated RBC % Platelet Estimate Hypochromasia Anisocytosis Schistocytes Sodium Potassium Chloride Carbon Dioxide Anion Gap BUN Creatinine Estim Creat Clear Calc Estimated GFR Glucose POC Capillary Glucose 88 110 H Calcium Phosphorus Magnesium Total Bilirubin AST ALT Alkaline Phosphatase Total Protein Albumin
[2025-02-20 16:46] LABS: Glucose Point of Care 113 mg/dl (65-105)
[2025-02-20] MEDS: PENTOXIFYLLINE 400 MG TABCR PO (17:02)
[2025-02-20] MEDS: INSULIN GLARGINE (*BKC) 100 UNITS/ML 6 UNITS SUB-Q (17:52)
[2025-02-20 20:37] LABS: Glucose Point of Care 119 mg/dl (65-105)
[2025-02-20] MEDS: ATORVASTATIN 20 MG TABLET PO (20:50)
[2025-02-20] MEDS: TAMSULOSIN HCL 0.4 MG CAPSULE PO (20:50)
[2025-02-21] VITALS (29 sets, daily range): BP systolic 115–165; BP diastolic 53–74; PULSE 69–88; RESP 14–20; TEMP 36.2–37.3; O2SAT 92–100
[2025-02-21 05:47] LABS: Basophils Absolute Auto 0.1 K/mm3 (0.0-0.1); Basophils Percent Auto 1.6 % (0.2-1.2); Eosinophils Absolute Auto 0.2 K/mm3 (0-0.3); Eosinophils Percent Auto 3.9 % (0-4.4); Hematocrit 27.9 % (42.0-52.0); Hemoglobin 8.1 g/dL (14.0-18.0); Immature Granulocyte Absolute 0.03 K/mm3 (0.00-0.031); Immature Granulocyte Percent A 0.6 % (0-0.5); Lymphocytes Absolute Auto 0.67 K/mm3 (0.9-3.2); Mean Corpuscular Hemoglobin 26.9 pg (26-34); Mean Corpuscular Volume 92.7 fl (80-100); Mean Platelet Volume 10.6 fl (7.4-10.4); Monocytes Absolute Auto 0.6 K/mm3 (0.1-0.6); Monocytes Percent Auto 11.7 % (2.6-8.5); Neutrophils Absolute Auto 3.6 K/mm3 (1.3-6.7); Neutrophils Percent Auto 69.2 % (45.5-73.1); Platelet Count Result 196 k/mm3 (150-375); Red Blood Count 3.01 M/mm3 (4.6-6.20); Red Cell Distribution Width 18.3 % (11.5-14.5); White Blood Count 5.2 K/mm3 (4.5-10.0)
[2025-02-21 06:09] LABS: Alanine Aminotransferase 9 U/L (6-50); Albumin Level 3.4 g/dL (3.5-5.1); Alkaline Phosphatase 51 U/L (38-126); Anion Gap 10 mmol/L (4-12); Aspartate Amino Transferase 14 U/L (17-59); Bilirubin,Total 0.3 mg/dL (0.2-1.3); Blood Urea Nitrogen 44 mg/dL (9-20); Calcium 11.6 mg/dL (8.4-10.2); Carbon Dioxide 24 mmol/L (22-30); Chloride 98 mmol/L (98-107); Estimated CRCL calculation 8 ml/min; Estimated Glomerular Filt Rate 9; Glucose 113 mg/dL (65-110); Magnesium 2.4 mg/dL (1.6-2.3); Potassium 4.5 mmol/L (3.4-5.0); Sodium 132 mmol/L (137-145)
[2025-02-21 06:14] LABS: Anisocytosis 1+; Hypochromasia 1+; Platelet Estimate Adequate (Adequate); Schistocytes None Seen
[2025-02-21 08:19] LABS: Glucose Point of Care 91 mg/dl (65-105)
--- NOTE | 2025-02-21 09:53 | PCPTNOTE ---
Pt in dialysis 0953. Will reattempt later
--- NOTE | 2025-02-21 09:55 | PCOTNOTE ---
Attempted OT evaluation; pt. out of room for dialysis 9:55. Will continue to follow as able.
--- NOTE | 2025-02-21 10:25 | P.PNNP_ITS ---
Progress Note: A&P Assessment and Plan (1) End stage renal disease: Code(s): N18.6 - End stage renal disease Status: Chronic Assessment and Plan: * HD today * continue T/T/S outpatient dialysis schedule while hospitalized * follow electrolytes, volume status, and clearance (2) Acute respiratory failure with hypoxia: Code(s): J96.01 - Acute respiratory failure with hypoxia Status: Acute Assessment and Plan: * improving * due to several issues: * mild pulmonary edema * suspected pneumonia * chronic CHF * COPD * relative anemia * fluid removal/ultrafiltration with dialysis as tolerated * on antibiotics, nebulizer treatments, and supplemental oxygen * wean supplemental oxygen as tolerated * follow respiratory status (3) Upper extremity weakness: Code(s): R29.898 - Other symptoms and signs involving the musculoskeletal system Status: Acute Assessment and Plan: * as noted on presentation * CT of head negative for acute process * Neurology recommendations noted * given history of cervical compression fracture, CT of cervical spine ordered (4) Pneumonia: Qualifiers: Laterality: unspecified laterality Lung location: unspecified part of lung Pneumonia type: due to unspecified organism Qualified Code(s): J18.9 - Pneumonia, unspecified organism Code(s): J18.9 - Pneumonia, unspecified organism Status: Acute Assessment and Plan: * admission CXR with suggestion of pneumonia * on antibiotic therapy * follow culture data - negative to date (5) Hypercalcemia: Code(s): E83.52 - Hypercalcemia Status: Acute Assessment and Plan: * noted over the last several days * not clear on etiology * sensipar/cinacalcet usually causes hypocalcemia * possibly due to prolonged immobilization? * adjust calcium bath with dialysis to compensate (6) Anemia: Code(s): D64.9 - Anemia, unspecified Status: Chronic Assessment and Plan: * due to ESRD * Epogen with HD * follow trend of H/H (7) Essential (primary) hypertension: Code(s): I10 - Essential (primary) hypertension Status: Chronic Assessment and Plan: * reasonable control at this time * follow trend of hemodynamics (8) IDDM (insulin dependent diabetes mellitus): Status: Chronic Assessment and Plan: * follow accu-cheks * glycemic control per hospitalists Will continue to follow. L Subjective Date/time seen: 02/21/25 10:25 Interval history: Follow-up for end stage renal disease on hemodialysis. Tolerating dialysis treatment at the time of my visit (seen on HD at 10:15AM); no apparent distress voiced when seen; reports upper extremity weakness seems about the same (no worse but not really any better); no other complaints to report currently. Exam 2 Narrative: General: elderly WD/WN male in NAD Heart: normal S1 and S2; no rub Lungs: coarse breath sounds at bases Abdomen: soft, nontender, nondistended, positive bowel sounds Extremities: no cyanosis or clubbing; trace edema Skin: warm and dry Objective Data Vital Signs Vital Signs: Vital Signs Temp Pulse Resp BP Pulse Ox O2 Del Method O2 Flow Rate 02/21/25 10:15 75 115/71 02/21/25 10:00 72 125/53 L 02/21/25 09:45 76 123/61 02/21/25 09:30 72 126/64 02/21/25 09:15 77 131/65 02/21/25 09:00 78 165/74 H 02/21/25 08:52 79 151/74 H 02/21/25 08:41 97.9 F 69 18 133/69 100 02/21/25 08:41 1.5 02/21/25 07:44 75 20 92 Nasal Cannula 1.5 02/21/25 05:21 99.1 F 71 14 148/64 H 95 02/21/25 00:50 98.4 F 74 16 139/72 99 02/20/25 20:59 98.6 F 65 16 128/59 L 100 02/20/25 20:45 96 Nasal Cannula 1.5 02/20/25 17:02 67 02/20/25 14:00 96.9 F L 75 14 129/62 96 Intake/Output Intake/Output: Intake & Output 02/18/25 02/19/25 02/20/25 02/21/25 23:59 23:59 23:59 23:59 Intake Total 1187 069 8173 240 Output Total 4000 Balance 1637 -3380 1080 240 Meds/Results Medications: Active Medications Generic Name Dose Route Start Last Admin Trade Name Freq PRN Reason Stop Dose Admin Acetaminophen 650 mg 02/15/25 23:52 02/20/25 08:48 Acetaminophen 325 Mg Tablet PO 650 mg Q4H PRN Administration Mild Pain (1-3) or Fever Amlodipine Besylate 10 mg 02/16/25 09:00 02/20/25 08:53 Amlodipine Besylate 10 Mg Tablet PO 10 mg DAILY DAVID Administration Amoxicillin/Clavulanate Potassium 1 tablet 02/19/25 09:00 02/20/25 20:50 Amoxicillin/Clavulanate K 500-125 Mg Tab PO 02/22/25 21:01 1 tablet Q12HR DAVID Administration Aspirin 81 mg 02/16/25 09:00 02/20/25 08:49 Aspirin 81 Mg Enteric Tablet PO 81 mg DAILY DAVID Administration Atorvastatin Calcium 20 mg 02/16/25 21:00 02/20/25 20:50 Atorvastatin 20 Mg Tablet PO 20 mg HS DAVID Administration Bisacodyl 10 mg 02/16/25 07:03 Bisacodyl 10 Mg Suppository RECTAL DAILY PRN constipation Carvedilol 25 mg 02/16/25 08:00 02/20/25 17:02 Carvedilol 25 Mg Tablet PO 25 mg BIDWM DAVID Administration Cinacalcet 90 mg 02/16/25 09:00 02/20/25 08:52 Cinacalcet 30 Mg Tablet PO 03/18/25 08:59 90 mg DAILY DAVID Administration Dextrose 12.5 gm 02/16/25 08:20 Dextrose 50% 25 Gm/50 Ml Syringe IV PUSH PRN PRN Hypoglycemia Protocol Epoetin David-epbx 10,000 units 02/21/25 18:11 02/21/25 11:09 Epoetin David-Epbx 10,000 Units/Ml Vial IV PUSH 02/21/25 18:12 10,000 units ONCE ONE Administration Finasteride 5 mg 02/16/25 09:00 02/20/25 08:48 Finasteride 5 Mg Tablet PO 5 mg QAM DAVID Administration Furosemide 80 mg 02/16/25 09:00 02/20/25 17:02 Furosemide 80 Mg Tablet PO 80 mg BID DAVID Administration Gabapentin 100 mg 02/16/25 09:00 02/20/25 17:02 Gabapentin 100 Mg Capsule PO 100 mg TID DAVID Administration Glucagon 1 mg 02/16/25 08:20 Glucagon For Inj 1 Mg Vial IM PRN PRN Hypoglycemia Protocol Glucose 15 gm 02/16/25 08:20 Glucose Oral Gel 15 Gm Of Glucse In 37.5 Gm Tube PO PRN PRN Hypoglycemia Protocol Heparin Sodium (Porcine) 5,000 units 02/16/25 09:00 02/20/25 20:51 Heparin Sodium 5,000 Units/Ml Vial SUB-Q 5,000 units Q12HR DAVID Administration Dextrose 1,000 mls @ 100 mls/hr 02/16/25 08:20 Dextrose 5% 1,000 Ml IVPB PRN PRN Hypoglycemia Protocol Albumin Human 50 mls @ 999 mls/hr 02/17/25 06:27 Albutein IVPB 03/19/25 06:26 Q10M PRN HYPOTENSION Insulin Aspart 4 units 02/16/25 08:00 02/20/25 17:56 Insulin Aspart (*Bkc) 100 Units/Ml SUB-Q Not Given TIDWM DAVID Insulin Aspart 2 - 5 units 02/16/25 12:00 02/20/25 17:04 Insulin Aspart (*Bkc) 100 Units/Ml SUB-Q Not Given TIDWM DAVID Protocol Insulin Glargine 6 units 02/16/25 18:00 02/20/25 17:52 Insulin Glargine (*Bkc) 100 Units/Ml SUB-Q 6 units QPM DAVID Administration Loratadine 10 mg 02/16/25 09:00 02/20/25 08:54 Loratadine 10 Mg Tablet PO 10 mg DAILY DAVID Administration Loratadine 10 mg 02/16/25 07:03 Loratadine 10 Mg Tablet PO DAILY PRN itching Pentoxifylline 400 mg 02/16/25 18:00 02/20/25 17:02 Pentoxifylline 400 Mg Tabcr PO 400 mg QPM DAVID Administration Sevelamer Carbonate 3.2 gm 02/16/25 08:00 02/20/25 17:05 Sevelamer Carbonate 0.8 Gm Oral Powder Packet PO 3.2 gm TIDWM DAVID Administration Silver Sulfadiazine 1 applic 02/16/25 09:00 02/20/25 08:45 Silver Sulfadiazine 1% Cr 50 Gm Jar (*Bkc) TOPICAL 1 applic QAM DAVID Administration Tamsulosin HCl 0.4 mg 02/16/25 21:00 02/20/25 20:50 Tamsulosin Hcl 0.4 Mg Capsule PO 0.4 mg QHS DAVID Administration Radiology Results: ITS Impressions Head CT 02/15/25 19:38 IMPRESSION: No acute intracranial findings. Chest X-Ray 02/18/25 20:32 IMPRESSION: Cardiomegaly with cardiac decompensation and pulmonary edema. Superimposed pneumonia is highly suggestive. Clinical correlation advised. Labs Labs: Laboratory Tests 02/21/25 05:42 02/21/25 05:42 Calcium 11.6 H Magnesium 2.4 H Total Bilirubin 0.3 AST 14 L ALT 9 Alkaline Phosphatase 51 Total Protein 6.0 L Albumin 3.4 L
[2025-02-21] MEDS: EPOETIN ALFA-EPBX 10,000 UNITS/ML VIAL 10000 UNITS IV PUSH (11:09)
--- NOTE | 2025-02-21 13:56 | PM.IMPN ---
Progress Note: A&P Assessment and Plan (1) IDDM (insulin dependent diabetes mellitus): Status: Chronic (2) Pressure ulcer of left heel, unstageable: Code(s): L89.620 - Pressure ulcer of left heel, unstageable Status: Acute (3) Pneumonia: Qualifiers: Laterality: unspecified laterality Lung location: unspecified part of lung Pneumonia type: due to unspecified organism Qualified Code(s): J18.9 - Pneumonia, unspecified organism Code(s): J18.9 - Pneumonia, unspecified organism Status: Acute (4) Seizure disorder: Code(s): G40.909 - Epilepsy, unspecified, not intractable, without status epilepticus Status: Acute (5) Acute hypoxic respiratory failure: Code(s): J96.01 - Acute respiratory failure with hypoxia Status: Acute (6) Type 2 diabetes mellitus, with long-term current use of insulin: Qualifiers: Diabetes mellitus complication status: with neurologic complications Diabetes mellitus complication detail: with polyneuropathy Qualified Code(s): E11.42 - Type 2 diabetes mellitus with diabetic polyneuropathy; Z79.4 - long term care social worker (current) use of insulin Code(s): E11.9 - Type 2 diabetes mellitus without complications; Z79.4 - long term care social worker (current) use of insulin Status: Acute (7) CAD in [place] artery: Code(s): I25.10 - Atherosclerotic heart disease of [place] coronary artery without angina pectoris Status: Acute (8) End-stage renal disease on hemodialysis: Code(s): N18.6 - End stage renal disease; Z99.2 - Dependence on renal dialysis Status: Acute (9) Weakness: Code(s): R53.1 - Weakness Status: Acute (10) Elevated troponin: Code(s): R79.89 - Other specified abnormal findings of blood chemistry Status: Acute (11) Pulmonary edema: Qualifiers: Chronicity: acute Qualified Code(s): J81.0 - Acute pulmonary edema Code(s): J81.1 - Chronic pulmonary edema Status: Acute (12) Obstructive sleep apnea: Code(s): G47.33 - Obstructive sleep apnea (adult) (pediatric) Status: Acute Plan 79-year-old male with a past medical history of end-stage renal disease on dialysis Sunday, coronary artery disease status post CABG 2013, cardiac pacemaker due to sinus pauses October 2024, peripheral artery status post angioplasty and endarterectomy bilateral lower extremities, obstructive sleep apnea intolerant to CPAP, COPD, insulin-dependent diabetes mellitus, unstageable decubitus ulcer right heel with eschar among other comorbidities who presented to the ER via EMS from custodial facility due to weakness and blurred vision. The patient reports that in the late afternoon he felt as if he could not move any of his extremities. The [facility] staff at also reported the patient had had some blurred vision patient did not mention mention vision changes at the time of my evaluation. On the scene the patient was found to be hypoxic. General weakness and blurred vision Patient presented weakness and stated he could not move any of his extremities for about [address] head shows no acute intracranial issues Possible due to hypoxemia needs to rule out neuro issues, consult neurologist for evaluation treatment Appreciate neurology's consultation, Neurology considers possible restriction on the shoulder pain Suspect cervical disc disease. Cervical CT from December 2024 showed chronic compression fracture of C4 and C5 along with multilevel face it joint disease and uncovertebral joint osteoarthritis changes. Has a pacemaker hence cannot get an MRI. Will get CT cervical spine repeated which is awaited Bilateral shoulder x-ray 0 11/15 were unremarkable. Acute respiratory failure with hypoxemia Possible due to CHF exacerbation pulmonary edema and pneumonia Patient received Lasix in the ED, Consult medicine man for dialysis Continue O2 therapy to keep pulse ox above 90 Patient is on 3 L oxygen via nasal cannular # status post pacemaker implantation sinus node dysfunction Community-acquired pneumonia X-ray suggest bilateral basal pneumonia Patient was placed on ceftriaxone and doxy IV Follow-up procalcitonin level End-stage renal disease on hemodialysis Overloaded upon arrival Consult medicine man for dialysis Patient underwent hemodialysis yesterday, 3.4 L removed Continue inpatient hemodialysis Chronic anemia No obvious bleeding Resulting from chronic renal failure Management per medicine man Type 2 diabetes Patient is on Lantus 6 units, lispro 5 units a.c. and sliding scale Controlled Subjective Date/time seen: 02/21/25 13:56 Interval history: Seen during dialysis. No new complaints. Upper extremity still weak. Denies any pain. Review of Systems Review of Systems: All systems reviewed & are unremarkable except as noted in HPI and below Exam Narrative: GENERAL: Pleasant, in no acute distress. Well-nourished. - EYES: EOMI. Anicteric. - HENT: Moist mucous membranes. - LUNGS: Coarse breath sound bilaterally - CARDIOVASCULAR: Regular rate and rhythm. No murmur. No JVD. - ABDOMEN: Soft, non-tender and non-distended. No palpable masses. - EXTREMITIES: No edema. Peripheral pulses 2+. Non-tender. - NEUROLOGIC: No focal neurological deficits. CN II-XII grossly intact, upper extremities are weak bilaterally - PSYCHIATRIC: Awake, Alert and oriented x 3. Appropriate mood and affect. - SKIN: No rashes or lesions. Warm. - LYMPH: No cervical lymphadenopathy. Objective Data Vital Signs Vital Signs: Vital Signs - 24 hr 02/20/25 14:00 02/20/25 17:02 02/20/25 20:45 Temperature 96.9 F L Pulse Rate 75 67 Respiratory Rate 14 Blood Pressure 129/62 Pulse Oximetry 96 96 Oxygen Delivery Nasal Cannula Oxygen Flow Rate 1.5 Fraction of Inspired Oxygen 02/20/25 20:59 02/21/25 00:50 02/21/25 05:21 Temperature 98.6 F 98.4 F 99.1 F Pulse Rate 65 74 71 Respiratory Rate 16 16 14 Blood Pressure 128/59 L 139/72 148/64 H Pulse Oximetry 100 99 95 Oxygen Delivery Oxygen Flow Rate Fraction of Inspired Oxygen 02/21/25 07:44 02/21/25 08:41 02/21/25 08:41 Temperature 97.9 F Pulse Rate 75 69 Respiratory Rate 20 18 Blood Pressure 133/69 Pulse Oximetry 92 100 Oxygen Delivery Nasal Cannula Oxygen Flow Rate 1.5 1.5 Fraction of Inspired Oxygen 26 02/21/25 08:52 02/21/25 09:00 02/21/25 09:15 Temperature Pulse Rate 79 78 77 Respiratory Rate Blood Pressure 151/74 H 165/74 H 131/65 Pulse Oximetry Oxygen Delivery Oxygen Flow Rate Fraction of Inspired Oxygen 02/21/25 09:30 02/21/25 09:45 02/21/25 10:00 Temperature Pulse Rate 72 76 72 Respiratory Rate Blood Pressure 126/64 123/61 125/53 L Pulse Oximetry Oxygen Delivery Oxygen Flow Rate Fraction of Inspired Oxygen 02/21/25 10:15 02/21/25 10:30 02/21/25 10:45 Temperature Pulse Rate 75 77 74 Respiratory Rate Blood Pressure 115/71 127/62 131/69 Pulse Oximetry Oxygen Delivery Oxygen Flow Rate Fraction of Inspired Oxygen 02/21/25 11:00 02/21/25 11:15 02/21/25 11:30 Temperature Pulse Rate 76 74 75 Respiratory Rate Blood Pressure 121/68 142/57 H 129/67 Pulse Oximetry Oxygen Delivery Oxygen Flow Rate Fraction of Inspired Oxygen 02/21/25 11:45 02/21/25 12:00 02/21/25 12:15 Temperature Pulse Rate 78 78 80 Respiratory Rate Blood Pressure 133/65 130/73 132/64 Pulse Oximetry Oxygen Delivery Oxygen Flow Rate Fraction of Inspired Oxygen 02/21/25 12:30 02/21/25 12:45 02/21/25 13:00 Temperature Pulse Rate 84 88 85 Respiratory Rate Blood Pressure 125/64 127/73 129/67 Pulse Oximetry Oxygen Delivery Oxygen Flow Rate Fraction of Inspired Oxygen Intake/Output Intake/Output: Intake & Output 02/18/25 02/19/25 02/20/25 02/21/25 23:59 23:59 23:59 23:59 Intake Total 9696 133 8043 240 Output Total 4000 Balance 1637 -3380 1080 240 Meds/Results Medications: Active Medications Generic Name Dose Route Start Last Admin Trade Name Freq PRN Reason Stop Dose Admin Acetaminophen 650 mg 02/15/25 23:52 02/20/25 08:48 Acetaminophen 325 Mg Tablet PO 650 mg Q4H PRN Administration Mild Pain (1-3) or Fever Amlodipine Besylate 10 mg 02/16/25 09:00 02/20/25 08:53 Amlodipine Besylate 10 Mg Tablet PO 10 mg DAILY DAVID Administration Amoxicillin/Clavulanate Potassium 1 tablet 02/19/25 09:00 02/20/25 20:50 Amoxicillin/Clavulanate K 500-125 Mg Tab PO 02/22/25 21:01 1 tablet Q12HR DAVID Administration Aspirin 81 mg 02/16/25 09:00 02/20/25 08:49 Aspirin 81 Mg Enteric Tablet PO 81 mg DAILY DAVID Administration Atorvastatin Calcium 20 mg 02/16/25 21:00 02/20/25 20:50 Atorvastatin 20 Mg Tablet PO 20 mg HS DAVID Administration Bisacodyl 10 mg 02/16/25 07:03 Bisacodyl 10 Mg Suppository RECTAL DAILY PRN constipation Carvedilol 25 mg 02/16/25 08:00 02/20/25 17:02 Carvedilol 25 Mg Tablet PO 25 mg BIDWM DAVID Administration Cinacalcet 90 mg 02/16/25 09:00 02/20/25 08:52 Cinacalcet 30 Mg Tablet PO 03/18/25 08:59 90 mg DAILY DAVID Administration Dextrose 12.5 gm 02/16/25 08:20 Dextrose 50% 25 Gm/50 Ml Syringe IV PUSH PRN PRN Hypoglycemia Protocol Epoetin David-epbx 10,000 units 02/21/25 18:11 02/21/25 11:09 Epoetin David-Epbx 10,000 Units/Ml Vial IV PUSH 02/21/25 18:12 10,000 units ONCE ONE Administration Finasteride 5 mg 02/16/25 09:00 02/20/25 08:48 Finasteride 5 Mg Tablet PO 5 mg QAM DAVID Administration Furosemide 80 mg 02/16/25 09:00 02/20/25 17:02 Furosemide 80 Mg Tablet PO 80 mg BID DAVID Administration Gabapentin 100 mg 02/16/25 09:00 02/20/25 17:02 Gabapentin 100 Mg Capsule PO 100 mg TID DAVID Administration Glucagon 1 mg 02/16/25 08:20 Glucagon For Inj 1 Mg Vial IM PRN PRN Hypoglycemia Protocol Glucose 15 gm 02/16/25 08:20 Glucose Oral Gel 15 Gm Of Glucse In 37.5 Gm Tube PO PRN PRN Hypoglycemia Protocol Heparin Sodium (Porcine) 5,000 units 02/16/25 09:00 02/20/25 20:51 Heparin Sodium 5,000 Units/Ml Vial SUB-Q 5,000 units Q12HR DAVID Administration Dextrose 1,000 mls @ 100 mls/hr 02/16/25 08:20 Dextrose 5% 1,000 Ml IVPB PRN PRN Hypoglycemia Protocol Albumin Human 50 mls @ 999 mls/hr 02/17/25 06:27 Albutein IVPB 03/19/25 06:26 Q10M PRN HYPOTENSION Insulin Aspart 4 units 02/16/25 08:00 02/20/25 17:56 Insulin Aspart (*Bkc) 100 Units/Ml SUB-Q Not Given TIDWM DAVID Insulin Aspart 2 - 5 units 02/16/25 12:00 02/20/25 17:04 Insulin Aspart (*Bkc) 100 Units/Ml SUB-Q Not Given TIDWM [facility] Protocol Insulin Glargine 6 units 02/16/25 18:00 02/20/25 17:52 Insulin Glargine (*Bkc) 100 Units/Ml SUB-Q 6 units QPM DAVID Administration Loratadine 10 mg 02/16/25 09:00 02/20/25 08:54 Loratadine 10 Mg Tablet PO 10 mg DAILY DAVID Administration Loratadine 10 mg 02/16/25 07:03 Loratadine 10 Mg Tablet PO DAILY PRN itching Pentoxifylline 400 mg 02/16/25 18:00 02/20/25 17:02 Pentoxifylline 400 Mg Tabcr PO 400 mg QPM DAVID Administration Sevelamer Carbonate 3.2 gm 02/16/25 08:00 02/20/25 17:05 Sevelamer Carbonate 0.8 Gm Oral Powder Packet PO 3.2 gm TIDWM DAVID Administration Silver Sulfadiazine 1 applic 02/16/25 09:00 02/20/25 08:45 Silver Sulfadiazine 1% Cr 50 Gm Jar (*Bkc) TOPICAL 1 applic QAM DAVID Administration Tamsulosin HCl 0.4 mg 02/16/25 21:00 02/20/25 20:50 Tamsulosin Hcl 0.4 Mg Capsule PO 0.4 mg QHS DAVID Administration Radiology Results: ITS Impressions Head CT 02/15/25 19:38 IMPRESSION: No acute intracranial findings. Chest X-Ray 02/18/25 20:32 IMPRESSION: Cardiomegaly with cardiac decompensation and pulmonary edema. Superimposed pneumonia is highly suggestive. Clinical correlation advised. Labs Labs: Laboratory Results - last 24 hr 02/20/25 02/20/25 02/21/25 16:38 20:33 05:42 WBC 5.2 RBC 3.01 L Hgb 8.1 L Hct 27.9 L MCV 92.7 MCH 26.9 MCHC 29.0 L RDW 18.3 H Plt Count 196 MPV 10.6 H Immature Gran % (Auto) 0.6 H Neut % (Auto) 69.2 Lymph % (Auto) 13.0 L [place] % (Auto) 11.7 H Eos % (Auto) 3.9 Baso % (Auto) 1.6 H Lymph # (Auto) 0.67 L [place] # (Auto) 0.6 Eos # (Auto) 0.2 Baso # (Auto) 0.1 Abs Immat Gran (auto) 0.03 Absolute Neuts (auto) 3.6 Absolute Nucleated RBC 0.000 Band Neutrophils % TNP Nucleated RBC % 0.0 Platelet Estimate Adequate Hypochromasia 1+ Anisocytosis 1+ Schistocytes None seen Sodium 132 L Potassium 4.5 Chloride 98 Carbon Dioxide 24 Anion Gap 10 BUN 44 H D Creatinine 6.35 H Estim Creat Clear Calc 8 Estimated GFR 9 L Glucose 113 H POC Capillary Glucose 113 H 119 H Calcium 11.6 H Magnesium 2.4 H Total Bilirubin 0.3 AST 14 L ALT 9 Alkaline Phosphatase 51 Total Protein 6.0 L Albumin 3.4 L 02/21/25 08:10 WBC RBC Hgb Hct MCV MCH MCHC RDW Plt Count MPV Immature Gran % (Auto) Neut % (Auto) Lymph % (Auto) [place] % (Auto) Eos % (Auto) Baso % (Auto) Lymph # (Auto) [place] # (Auto) Eos # (Auto) Baso # (Auto) Abs Immat Gran (auto) Absolute Neuts (auto) Absolute Nucleated RBC Band Neutrophils % Nucleated RBC % Platelet Estimate Hypochromasia Anisocytosis Schistocytes Sodium Potassium Chloride Carbon Dioxide Anion Gap BUN Creatinine Estim Creat Clear Calc Estimated GFR Glucose POC Capillary Glucose 91 Calcium Magnesium Total Bilirubin AST ALT Alkaline Phosphatase Total Protein Albumin
[2025-02-21 15:05] LABS: Glucose Point of Care 86 mg/dl (65-105)
[2025-02-21] MEDS: FUROSEMIDE 80 MG TABLET PO (15:23)
[2025-02-21] MEDS: CINACALCET 30 MG TABLET 90 MG PO (15:23)
[2025-02-21] MEDS: FINASTERIDE 5 MG TABLET PO (15:24)
[2025-02-21] MEDS: AMOXICILLIN/CLAVULANATE K 500-125 MG TAB 1 TABLET PO ×2 (15:24→21:54)
[2025-02-21] MEDS: GABAPENTIN 100 MG CAPSULE PO (15:24)
[2025-02-21] MEDS: amLODIPine BESYLATE 10 MG TABLET PO (15:24)
[2025-02-21] MEDS: ASPIRIN 81 MG ENTERIC TABLET PO (15:24)
[2025-02-21] MEDS: LORATADINE 10 MG TABLET PO (15:24)
[2025-02-21] MEDS: HEPARIN SODIUM 5,000 UNITS/ML VIAL 5000 UNITS SUB-Q ×2 (15:25→21:54)
[2025-02-21] MEDS: carvediloL 25 MG TABLET PO (15:26)
[2025-02-21] MEDS: SILVER SULFADIAZINE 1% CR 50 GM JAR (*BKC) 1 APPLIC TOPICAL (15:26)
[2025-02-21 17:13] LABS: Glucose Point of Care 138 mg/dl (65-105)
[2025-02-21] MEDS: SEVELAMER CARBONATE 0.8 GM ORAL POWDER PACKET 3.2 GM PO (17:26)
[2025-02-21] MEDS: INSULIN GLARGINE (*BKC) 100 UNITS/ML 6 UNITS SUB-Q (17:26)
[2025-02-21] MEDS: INSULIN ASPART (*BKC) 100 UNITS/ML SUB-Q (17:27)
[2025-02-21] MEDS: PENTOXIFYLLINE 400 MG TABCR PO (17:29)
[2025-02-21 21:24] LABS: Glucose Point of Care 154 mg/dl (65-105)
[2025-02-21] MEDS: ATORVASTATIN 20 MG TABLET PO (21:54)
[2025-02-21] MEDS: TAMSULOSIN HCL 0.4 MG CAPSULE PO (21:54)
[2025-02-22] VITALS (9 sets, daily range): BP systolic 109–152; BP diastolic 56–66; PULSE 70–82; RESP 16–20; TEMP 36.2–36.7; O2SAT 95–100
[2025-02-22] MEDS: SEVELAMER CARBONATE 0.8 GM ORAL POWDER PACKET 3.2 GM PO (07:48)
[2025-02-22] MEDS: amLODIPine BESYLATE 10 MG TABLET PO (07:48)
[2025-02-22] MEDS: FINASTERIDE 5 MG TABLET PO (07:48)
[2025-02-22] MEDS: AMOXICILLIN/CLAVULANATE K 500-125 MG TAB 1 TABLET PO ×2 (07:48→21:23)
[2025-02-22] MEDS: GABAPENTIN 100 MG CAPSULE PO (07:49)
[2025-02-22] MEDS: FUROSEMIDE 80 MG TABLET PO ×2 (07:49→17:58)
[2025-02-22] MEDS: ASPIRIN 81 MG ENTERIC TABLET PO (07:49)
[2025-02-22] MEDS: HEPARIN SODIUM 5,000 UNITS/ML VIAL 5000 UNITS SUB-Q ×2 (07:49→21:23)
[2025-02-22] MEDS: LORATADINE 10 MG TABLET PO (07:49)
[2025-02-22] MEDS: carvediloL 25 MG TABLET PO ×2 (07:51→17:58)
[2025-02-22] MEDS: CINACALCET 30 MG TABLET 90 MG PO (07:51)
[2025-02-22] MEDS: SILVER SULFADIAZINE 1% CR 50 GM JAR (*BKC) 1 APPLIC TOPICAL (07:53)
[2025-02-22 08:12] LABS: Basophils Absolute Auto 0.1 K/mm3 (0.0-0.1); Basophils Percent Auto 1.3 % (0.2-1.2); Eosinophils Absolute Auto 0.1 K/mm3 (0-0.3); Eosinophils Percent Auto 2.9 % (0-4.4); Hemoglobin 8.9 g/dL (14.0-18.0); Immature Granulocyte Absolute 0.02 K/mm3 (0.00-0.031); Immature Granulocyte Percent A 0.4 % (0-0.5); Lymphocytes Absolute Auto 0.77 K/mm3 (0.9-3.2); Lymphocytes Percent Auto 17.2 % (18.3-44.2); Mean Corpuscular HGB Conc 28.7 g/dl (32-36); Mean Corpuscular Hemoglobin 26.4 pg (26-34); Mean Platelet Volume 10.7 fl (7.4-10.4); Monocytes Absolute Auto 0.6 K/mm3 (0.1-0.6); Monocytes Percent Auto 13.8 % (2.6-8.5); Neutrophils Absolute Auto 2.9 K/mm3 (1.3-6.7); Neutrophils Percent Auto 64.4 % (45.5-73.1); Platelet Count Result 209 k/mm3 (150-375); Red Blood Count 3.37 M/mm3 (4.6-6.20); Red Cell Distribution Width 18.6 % (11.5-14.5); White Blood Count 4.5 K/mm3 (4.5-10.0)
[2025-02-22 08:27] LABS: Albumin Level 3.6 g/dL (3.5-5.1); Anion Gap 9 mmol/L (4-12); Blood Urea Nitrogen 29 mg/dL (9-20); Calcium 11.1 mg/dL (8.4-10.2); Carbon Dioxide 32 mmol/L (22-30); Chloride 97 mmol/L (98-107); Estimated CRCL calculation 11 ml/min; Estimated Glomerular Filt Rate 12; Glucose 93 mg/dL (65-110); Phosphorus 4.9 mg/dL (2.5-4.5); Potassium 3.7 mmol/L (3.4-5.0); Sodium 138 mmol/L (137-145)
[2025-02-22 08:31] LABS: Anisocytosis 1+; Hypochromasia 1+; Platelet Estimate Adequate (Adequate); Schistocytes None Seen
[2025-02-22 08:48] LABS: Glucose Point of Care 153 mg/dl (65-105)
[2025-02-22] MEDS: INSULIN ASPART (*BKC) 100 UNITS/ML SUB-Q ×2 (10:01→12:45)
--- NOTE | 2025-02-22 10:01 | PC.NURSE ---
10:01 insulin administration was given in right upper, outer arm. I was unable to edit the admin to accurately reflect location of injection.
--- NOTE | 2025-02-22 11:06 | P.PNNP_ITS ---
Progress Note: A&P Assessment and Plan (1) End stage renal disease: Code(s): N18.6 - End stage renal disease Status: Chronic Assessment and Plan: * HD yesterday * continue T/T/S outpatient dialysis schedule while hospitalized * follow electrolytes, volume status, and clearance (2) Acute respiratory failure with hypoxia: Code(s): J96.01 - Acute respiratory failure with hypoxia Status: Acute Assessment and Plan: * improving * due to several issues: * mild pulmonary edema * suspected pneumonia * chronic CHF * COPD * relative anemia * fluid removal/ultrafiltration with dialysis as tolerated * on antibiotics, nebulizer treatments, and supplemental oxygen * wean supplemental oxygen as tolerated * follow respiratory status (3) Upper extremity weakness: Code(s): R29.898 - Other symptoms and signs involving the musculoskeletal system Status: Acute Assessment and Plan: * as noted on presentation * CT of head negative for acute process * Neurology recommendations noted * CT of cervical spine results reviewed (4) Pneumonia: Qualifiers: Laterality: unspecified laterality Lung location: unspecified part of lung Pneumonia type: due to unspecified organism Qualified Code(s): J18.9 - Pneumonia, unspecified organism Code(s): J18.9 - Pneumonia, unspecified organism Status: Acute Assessment and Plan: * admission CXR with suggestion of pneumonia * on antibiotic therapy * follow culture data - negative to date (5) Hypercalcemia: Code(s): E83.52 - Hypercalcemia Status: Acute Assessment and Plan: * noted over the last several days * not clear on etiology * sensipar/cinacalcet usually causes hypocalcemia * possibly due to prolonged immobilization/bed bound state? * adjusting calcium bath with dialysis to compensate (6) Anemia: Code(s): D64.9 - Anemia, unspecified Status: Chronic Assessment and Plan: * due to ESRD * Epogen with HD * follow trend of H/H (7) Essential (primary) hypertension: Code(s): I10 - Essential (primary) hypertension Status: Chronic Assessment and Plan: * reasonable control at this time * follow trend of hemodynamics (8) IDDM (insulin dependent diabetes mellitus): Status: Chronic Assessment and Plan: * follow accu-cheks * glycemic control per hospitalists Will continue to follow. L Subjective Date/time seen: 02/22/25 11:06 Interval history: Follow-up for end stage renal disease on hemodialysis. Tolerated dialysis treatment yesterday without any issues or problems other than prolonged bleeding time from AV access following HD session; breathing/respiratory status seems stable with weaning of supplemental oxygen to 1 - 1.5L by nasal cannula; no other issues/events overnight or earlier this morning, results of cervical spine CT noted. Exam 2 Narrative: General: elderly WD/WN male in NAD Heart: normal S1 and S2; no rub Lungs: coarse breath sounds at bases Abdomen: soft, nontender, nondistended, positive bowel sounds Extremities: no cyanosis or clubbing; trace edema Skin: warm and intact Objective Data Vital Signs Vital Signs: Vital Signs Temp Pulse Resp BP Pulse Ox O2 Del Method O2 Flow Rate 02/22/25 07:51 77 02/22/25 07:45 96 Nasal Cannula 1.5 02/22/25 05:23 98.1 F 82 16 141/66 H 100 02/21/25 21:45 97 Nasal Cannula 1 02/21/25 21:35 99.1 F 72 14 126/60 97 02/21/25 15:26 86 02/21/25 15:04 97.1 F L 84 19 134/59 L 100 02/21/25 13:57 98.8 F 80 18 137/68 100 02/21/25 13:07 86 125/70 02/21/25 13:00 85 129/67 02/21/25 12:45 88 127/73 02/21/25 12:30 84 125/64 02/21/25 12:15 80 132/64 Intake/Output Intake/Output: Intake & Output 02/19/25 02/20/25 02/21/25 02/22/25 23:59 23:59 23:59 23:59 Intake Total 620 1080 1020 490 Output Total 4000 4000 0 Balance -3380 1080 -2980 490 Meds/Results Medications: Active Medications Generic Name Dose Route Start Last Admin Trade Name Freq PRN Reason Stop Dose Admin Acetaminophen 650 mg 02/15/25 23:52 02/20/25 08:48 Acetaminophen 325 Mg Tablet PO 650 mg Q4H PRN Administration Mild Pain (1-3) or Fever Amlodipine Besylate 10 mg 02/16/25 09:00 02/22/25 07:48 Amlodipine Besylate 10 Mg Tablet PO 10 mg DAILY DAVID Administration Amoxicillin/Clavulanate Potassium 1 tablet 02/19/25 09:00 02/22/25 07:48 Amoxicillin/Clavulanate K 500-125 Mg Tab PO 02/22/25 21:01 1 tablet Q12HR DAVID Administration Aspirin 81 mg 02/16/25 09:00 02/22/25 07:49 Aspirin 81 Mg Enteric Tablet PO 81 mg DAILY DAVID Administration Atorvastatin Calcium 20 mg 02/16/25 21:00 02/21/25 21:54 Atorvastatin 20 Mg Tablet PO 20 mg HS DAVID Administration Bisacodyl 10 mg 02/16/25 07:03 Bisacodyl 10 Mg Suppository RECTAL DAILY PRN constipation Carvedilol 25 mg 02/16/25 08:00 02/22/25 07:51 Carvedilol 25 Mg Tablet PO 25 mg BIDWM DAVID Administration Cinacalcet 90 mg 02/16/25 09:00 02/22/25 07:51 Cinacalcet 30 Mg Tablet PO 03/18/25 08:59 90 mg DAILY DAVID Administration Dextrose 12.5 gm 02/16/25 08:20 Dextrose 50% 25 Gm/50 Ml Syringe IV PUSH PRN PRN Hypoglycemia Protocol Finasteride 5 mg 02/16/25 09:00 02/22/25 07:48 Finasteride 5 Mg Tablet PO 5 mg QAM DAVID Administration Furosemide 80 mg 02/16/25 09:00 02/22/25 07:49 Furosemide 80 Mg Tablet PO 80 mg BID DAVID Administration Gabapentin 100 mg 02/16/25 09:00 02/22/25 07:49 Gabapentin 100 Mg Capsule PO 100 mg TID DAVID Administration Glucagon 1 mg 02/16/25 08:20 Glucagon For Inj 1 Mg Vial IM PRN PRN Hypoglycemia Protocol Glucose 15 gm 02/16/25 08:20 Glucose Oral Gel 15 Gm Of Glucse In 37.5 Gm Tube PO PRN PRN Hypoglycemia Protocol Heparin Sodium (Porcine) 5,000 units 02/16/25 09:00 02/22/25 07:49 Heparin Sodium 5,000 Units/Ml Vial SUB-Q 5,000 units Q12HR DAVID Administration Dextrose 1,000 mls @ 100 mls/hr 02/16/25 08:20 Dextrose 5% 1,000 Ml IVPB PRN PRN Hypoglycemia Protocol Albumin Human 50 mls @ 999 mls/hr 02/17/25 06:27 Albutein IVPB 03/19/25 06:26 Q10M PRN HYPOTENSION Insulin Aspart 4 units 02/16/25 08:00 02/22/25 10:01 Insulin Aspart (*Bkc) 100 Units/Ml SUB-Q 4 units TIDWM DAVID Administration Insulin Aspart 2 - 5 units 02/16/25 12:00 02/22/25 10:01 Insulin Aspart (*Bkc) 100 Units/Ml SUB-Q Not Given TIDWM REPLACED BY [facility] Protocol Insulin Glargine 6 units 02/16/25 18:00 02/21/25 17:26 Insulin Glargine (*Bkc) 100 Units/Ml SUB-Q 6 units QPM DAVID Administration Loratadine 10 mg 02/16/25 09:00 02/22/25 07:49 Loratadine 10 Mg Tablet PO 10 mg DAILY DAVID Administration Loratadine 10 mg 02/16/25 07:03 Loratadine 10 Mg Tablet PO DAILY PRN itching Pentoxifylline 400 mg 02/16/25 18:00 02/21/25 17:29 Pentoxifylline 400 Mg Tabcr PO 400 mg QPM DAVID Administration Sevelamer Carbonate 3.2 gm 02/16/25 08:00 02/22/25 07:48 Sevelamer Carbonate 0.8 Gm Oral Powder Packet PO 3.2 gm TIDWM DAVID Administration Silver Sulfadiazine 1 applic 02/16/25 09:00 02/22/25 07:53 Silver Sulfadiazine 1% Cr 50 Gm Jar (*Bkc) TOPICAL 1 applic QAM DAVID Administration Tamsulosin HCl 0.4 mg 02/16/25 21:00 02/21/25 21:54 Tamsulosin Hcl 0.4 Mg Capsule PO 0.4 mg QHS DAVID Administration Radiology Results: ITS Impressions Head CT 02/15/25 19:38 IMPRESSION: No acute intracranial findings. Chest X-Ray 02/21/25 19:52 IMPRESSION: Improving edema and atelectasis. Cervical Spine CT 02/21/25 20:52 IMPRESSION: No acute fracture or traumatic malalignment in the cervical spine. Moderate neural foraminal narrowing on the left at C4-5 and on the right at C2- 3. Erosive changes at the C3-4 and C4-5 disc spaces, also seen to a lesser extent in multiple facet joints. Mild prevertebral soft tissue thickening, most pronounced at the C5-6 disc level, probably representing inflammatory panus. These changes appear chronic and largely stable, and may be secondary to inflammatory or crystalline arthropathy. Osteomyelitis/discitis considered less likely. Chronic height loss at C3 and C4 and chronic anterior wedge deformity at C5. Sclerosis of the C4 vertebral body probably related to degenerative change/arthropathy, noting that sclerotic metastases could appear similarly. Labs Labs: Laboratory Tests 02/22/25 08:04 02/22/25 08:04 Calcium 11.1 H Phosphorus 4.9 H Albumin 3.6 Microbiology 02/15/25 21:59 Blood Blood Culture - Final 02/15/25 21:59 Blood Blood Culture - Final
[2025-02-22 12:19] LABS: Glucose Point of Care 120 mg/dl (65-105)
--- NOTE | 2025-02-22 13:07 | P.PNIM_ITS ---
Progress Note: A&P Assessment and Plan (1) IDDM (insulin dependent diabetes mellitus): Status: Chronic (2) Pressure ulcer of left heel, unstageable: Code(s): L89.620 - Pressure ulcer of left heel, unstageable Status: Acute (3) Pneumonia: Qualifiers: Laterality: unspecified laterality Lung location: unspecified part of lung Pneumonia type: due to unspecified organism Qualified Code(s): J18.9 - Pneumonia, unspecified organism Code(s): J18.9 - Pneumonia, unspecified organism Status: Acute (4) Seizure disorder: Code(s): G40.909 - Epilepsy, unspecified, not intractable, without status epilepticus Status: Acute (5) Acute hypoxic respiratory failure: Code(s): J96.01 - Acute respiratory failure with hypoxia Status: Acute (6) Type 2 diabetes mellitus, with long-term current use of insulin: Qualifiers: Diabetes mellitus complication status: with neurologic complications Diabetes mellitus complication detail: with polyneuropathy Qualified Code(s): E11.42 - Type 2 diabetes mellitus with diabetic polyneuropathy; Z79.4 - terminal carman (current) use of insulin Code(s): E11.9 - Type 2 diabetes mellitus without complications; Z79.4 - terminal carman (current) use of insulin Status: Acute (7) CAD in [place] artery: Code(s): I25.10 - Atherosclerotic heart disease of [place] coronary artery without angina pectoris Status: Acute (8) End-stage renal disease on hemodialysis: Code(s): N18.6 - End stage renal disease; Z99.2 - Dependence on renal dialysis Status: Acute (9) Weakness: Code(s): R53.1 - Weakness Status: Acute (10) Elevated troponin: Code(s): R79.89 - Other specified abnormal findings of blood chemistry Status: Acute (11) Pulmonary edema: Qualifiers: Chronicity: acute Qualified Code(s): J81.0 - Acute pulmonary edema Code(s): J81.1 - Chronic pulmonary edema Status: Acute (12) Obstructive sleep apnea: Code(s): G47.33 - Obstructive sleep apnea (adult) (pediatric) Status: Acute Plan 79-year-old male with a past medical history of end-stage renal disease on dialysis Sunday, coronary artery disease status post CABG 2013, cardiac pacemaker due to sinus pauses October 2024, peripheral artery st atus post angioplasty and endarterectomy bilateral lower extremities, obstructive sleep apnea intolerant to CPAP, COPD, insulin-dependent diabetes mellitus, unstageable decubitus ulcer right heel with eschar among other comorbidities who presented to the ER via EMS from senior care facility due to weakness and blurred vision. The patient reports that in the late afternoon he felt as if he could not move any of his extremities. The half-way staff at also reported the patient had had some blurred vision patient did not mention mention vision changes at the time of my evaluation. On the scene the patient was found to be hypoxic. General weakness and blurred vision Patient presented weakness and stated he could not move any of his extremities for about [address] head shows no acute intracranial issues Possible due to hypoxemia needs to rule out neuro issues, consult neurologist for evaluation treatment Appreciate neurology's consultation, Neurology considers possible restriction on the shoulder pain Suspect cervical disc disease. Cervical CT from December 2024 showed chronic compression fracture of C4 and C5 along with multilevel face it joint disease and uncovertebral joint osteoarthritis changes. Has a pacemaker hence cannot get an MRI. CT cervical spine with no acute fracture. Moderate neuroforaminal narrowing on left at C4-5 and on the right at C2-3. Erosive changes at C3-C4 and C4-C5 disc stasis these appear chronic enlarged stable. Bilateral shoulder x-ray 0 11/15 were unremarkable. Acute respiratory failure with hypoxemia Possible due to CHF exacerbation pulmonary edema and pneumonia Patient received Lasix in the ED, Consult cv/cvn cv tsc system operator for dialysis Continue O2 therapy to keep pulse ox above 90 Patient is on 3 L oxygen via nasal cannular # status post pacemaker implantation for sinus node dysfunction Community-acquired pneumonia X-ray suggest bilateral basal pneumonia Patient was placed on ceftriaxone and doxy IV Follow-up procalcitonin level End-stage renal disease on hemodialysis Overloaded upon arrival Consult cv/cvn cv tsc system operator for dialysis Patient underwent hemodialysis yesterday, 3.4 L removed Continue inpatient hemodialysis Chronic anemia No obvious bleeding Resulting from chronic renal failure Management per cv/cvn cv tsc system operator Type 2 diabetes Patient is on Lantus 6 units, lispro 5 units a.c. and sliding scale Controlled # disposition: PT OT to see Subjective Date/time seen: 02/22/25 13:07 Interval history: No overnight events. Denies any new complaints. Underwent dialysis yesterday. Review of Systems Review of Systems: All systems reviewed & are unremarkable except as noted in HPI and below Exam Narrative: GENERAL: Pleasant, in no acute distress. Well-nourished. - EYES: EOMI. Anicteric. - HENT: Moist mucous membranes. - LUNGS: Coarse breath sound bilaterall y - CARDIOVASCULAR: Regular rate and rhyth m. No murmur. No JVD. - ABDOMEN: Soft, non-tender and non-dist ended. No palpable masses. - EXTREMITIES: No edema. Peripheral puls es 2+. Non-tender. - NEUROLOGIC: No focal neurological defi cits. CN II-XII grossly intact, upper extremities are weak bilaterally - PSYCHIATRIC: Awake, Alert and oriented x 3. Appropriate mood and affect. - SKIN: No rashes or lesions. Warm. - LYMPH: No cervical lymphadenopathy. Objective Data Vital Signs Vital Signs: Vital Signs - 24 hr 02/21/25 13:57 02/21/25 15:04 02/21/25 15:26 Temperature 98.8 F 97.1 F L Pulse Rate 80 84 86 Respiratory Rate 18 19 Blood Pressure 137/68 134/59 L Pulse Oximetry 100 100 Oxygen Delivery Oxygen Flow Rate 02/21/25 21:35 02/21/25 21:45 02/22/25 05:23 Temperature 99.1 F 98.1 F Pulse Rate 72 82 Respiratory Rate 14 16 Blood Pressure 126/60 141/66 H Pulse Oximetry 97 97 100 Oxygen Delivery Nasal Cannula Oxygen Flow Rate 1 02/22/25 07:45 02/22/25 07:51 02/22/25 11:43 Temperature Pulse Rate 77 Respiratory Rate Blood Pressure Pulse Oximetry 96 Oxygen Delivery Nasal Cannula Nasal Cannula Oxygen Flow Rate 1.5 2 02/22/25 13:00 Temperature 98 F Pulse Rate 72 Respiratory Rate 19 Blood Pressure 116/44 L Pulse Oximetry 95 Oxygen Delivery Oxygen Flow Rate Intake/Output Intake/Output: Intake & Output 02/19/25 02/20/25 02/21/25 02/22/25 23:59 23:59 23:59 23:59 Intake Total 620 1080 1020 490 Output Total 4000 4000 0 Balance -3380 1080 -2980 490 Meds/Results Medications: Active Medications Generic Name Dose Route Start Last Admin Trade Name Freq PRN Reason Stop Dose Admin Acetaminophen 650 mg 02/15/25 23:52 02/20/25 08:48 Acetaminophen 325 Mg Tablet PO 650 mg Q4H PRN Administration Mild Pain (1-3) or Fever Amlodipine Besylate 10 mg 02/16/25 09:00 02/22/25 07:48 Amlodipine Besylate 10 Mg Tablet PO 10 mg DAILY DAVID Administration Amoxicillin/Clavulanate Potassium 1 tablet 02/19/25 09:00 02/22/25 07:48 Amoxicillin/Clavulanate K 500-125 Mg Tab PO 02/22/25 21:01 1 tablet Q12HR DAVID Administration Aspirin 81 mg 02/16/25 09:00 02/22/25 07:49 Aspirin 81 Mg Enteric Tablet PO 81 mg DAILY DAVID Administration Atorvastatin Calcium 20 mg 02/16/25 21:00 02/21/25 21:54 Atorvastatin 20 Mg Tablet PO 20 mg HS DAVID Administration Bisacodyl 10 mg 02/16/25 07:03 Bisacodyl 10 Mg Suppository RECTAL DAILY PRN constipation Carvedilol 25 mg 02/16/25 08:00 02/22/25 07:51 Carvedilol 25 Mg Tablet PO 25 mg BIDWM DAVID Administration Cinacalcet 90 mg 02/16/25 09:00 02/22/25 07:51 Cinacalcet 30 Mg Tablet PO 03/18/25 08:59 90 mg DAILY DAVID Administration Dextrose 12.5 gm 02/16/25 08:20 Dextrose 50% 25 Gm/50 Ml Syringe IV PUSH PRN PRN Hypoglycemia Protocol Finasteride 5 mg 02/16/25 09:00 02/22/25 07:48 Finasteride 5 Mg Tablet PO 5 mg QAM DAVID Administration Furosemide 80 mg 02/16/25 09:00 02/22/25 07:49 Furosemide 80 Mg Tablet PO 80 mg BID DAVID Administration Gabapentin 100 mg 02/16/25 09:00 02/22/25 07:49 Gabapentin 100 Mg Capsule PO 100 mg TID DAVID Administration Glucagon 1 mg 02/16/25 08:20 Glucagon For Inj 1 Mg Vial IM PRN PRN Hypoglycemia Protocol Glucose 15 gm 02/16/25 08:20 Glucose Oral Gel 15 Gm Of Glucse In 37.5 Gm Tube PO PRN PRN Hypoglycemia Protocol Heparin Sodium (Porcine) 5,000 units 02/16/25 09:00 02/22/25 07:49 Heparin Sodium 5,000 Units/Ml Vial SUB-Q 5,000 units Q12HR DAVID Administration Dextrose 1,000 mls @ 100 mls/hr 02/16/25 08:20 Dextrose 5% 1,000 Ml IVPB PRN PRN Hypoglycemia Protocol Albumin Human 50 mls @ 999 mls/hr 02/17/25 06:27 Albutein IVPB 03/19/25 06:26 Q10M PRN HYPOTENSION Insulin Aspart 4 units 02/16/25 08:00 02/22/25 12:45 Insulin Aspart (*Bkc) 100 Units/Ml SUB-Q 4 units TIDWM DAVID Administration Insulin Aspart 2 - 5 units 02/16/25 12:00 02/22/25 12:46 Insulin Aspart (*Bkc) 100 Units/Ml SUB-Q Not Given TIDWM DAVID Protocol Insulin Glargine 6 units 02/16/25 18:00 02/21/25 17:26 Insulin Glargine (*Bkc) 100 Units/Ml SUB-Q 6 units QPM DAVID Administration Loratadine 10 mg 02/16/25 09:00 02/22/25 07:49 Loratadine 10 Mg Tablet PO 10 mg DAILY DAVID Administration Loratadine 10 mg 02/16/25 07:03 Loratadine 10 Mg Tablet PO DAILY PRN itching Pentoxifylline 400 mg 02/16/25 18:00 02/21/25 17:29 Pentoxifylline 400 Mg Tabcr PO 400 mg QPM DAVID Administration Sevelamer Carbonate 3.2 gm 02/16/25 08:00 02/22/25 07:48 Sevelamer Carbonate 0.8 Gm Oral Powder Packet PO 3.2 gm TIDWM DAVID Administration Silver Sulfadiazine 1 applic 02/16/25 09:00 02/22/25 07:53 Silver Sulfadiazine 1% Cr 50 Gm Jar (*Bkc) TOPICAL 1 applic QAM DAVID Administration Tamsulosin HCl 0.4 mg 02/16/25 21:00 02/21/25 21:54 Tamsulosin Hcl 0.4 Mg Capsule PO 0.4 mg QHS DAVID Administration Radiology Results: ITS Impressions Head CT 02/15/25 19:38 IMPRESSION: No acute intracranial findings. Chest X-Ray 02/21/25 19:52 IMPRESSION: Improving edema and atelectasis. Cervical Spine CT 02/21/25 20:52 IMPRESSION: No acute fracture or traumatic malalignment in the cervical spine. Moderate neural foraminal narrowing on the left at C4-5 and on the right at C2- 3. Erosive changes at the C3-4 and C4-5 disc spaces, also seen to a lesser extent in multiple facet joints. Mild prevertebral soft tissue thickening, most pronounced at the C5-6 disc level, probably representing inflammatory panus. These changes appear chronic and largely stable, and may be secondary to i nflammatory or crystalline arthropathy. Osteomyelitis/discitis considered less likely. Chronic height loss at C3 and C4 and chronic anterior wedge deformity at C5. Sclerosis of the C4 vertebral body probably related to degenerative change/arthropathy, noting that sclerotic metastases could appear similarly. Labs Labs: Laboratory Results - last 24 hr 02/21/25 02/21/25 02/21/25 15:01 17:11 21:16 WBC RBC Hgb Hct MCV MCH MCHC RDW Plt Count MPV Immature Gran % (Auto) Neut % (Auto) Lymph % (Auto) [place] % (Auto) Eos % (Auto) Baso % (Auto) Lymph # (Auto) [place] # (Auto) Eos # (Auto) Baso # (Auto) Abs Immat Gran (auto) Absolute Neuts (auto) Absolute Nucleated RBC Band Neutrophils % Nucleated RBC % Platelet Estimate Hypochromasia Anisocytosis Schistocytes Sodium Potassium Chloride Carbon Dioxide Anion Gap BUN Creatinine Estim Creat Clear Calc Estimated GFR Glucose POC Capillary Glucose 86 138 H 154 H Calcium Phosphorus Albumin 02/22/25 02/22/25 02/22/25 08:04 08:44 12:12 WBC 4.5 RBC 3.37 L Hgb 8.9 L Hct 31.0 L MCV 92.0 MCH 26.4 MCHC 28.7 L RDW 18.6 H Plt Count 209 MPV 10.7 H Immature Gran % (Auto) 0.4 Neut % (Auto) 64.4 Lymph % (Auto) 17.2 L [place] % (Auto) 13.8 H Eos % (Auto) 2.9 Baso % (Auto) 1.3 H Lymph # (Auto) 0.77 L [place] # (Auto) 0.6 Eos # (Auto) 0.1 Baso # (Auto) 0.1 Abs Immat Gran (auto) 0.02 Absolute Neuts (auto) 2.9 Absolute Nucleated RBC 0.000 Band Neutrophils % Not Reportable Nucleated RBC % 0.0 Platelet Estimate Adequate Hypochromasia 1+ Anisocytosis 1+ Schistocytes None seen Sodium 138 Potassium 3.7 Chloride 97 L Carbon Dioxide 32 H Anion Gap 9 BUN 29 H D Creatinine 4.84 H Estim Creat Clear Calc 11 Estimated GFR 12 L Glucose 93 POC Capillary Glucose 153 H 120 H Calcium 11.1 H Phosphorus 4.9 H Albumin 3.6
--- NOTE | 2025-02-22 13:08 | PCPTNOTE ---
Attempted to see pt after lunch for PT evaluation. Pt lethargic and per nursing is not appropriate for evaluation at this time. Nursing states she will call if anything changes
[2025-02-22 13:20] LABS: Alveolar/Arterial O2 Gradient 75.4 mmHg; Base Excess ABG 4.6 mEq/l (+/-2.0); Fractional Inspired Oxygen 24 %; HCO3 ABG 30.2 mEq/l (22.0-26.0); Oxygen Content ABG 8.7 %vol (16.0-22.0); PCO2 ABG 50.3 mmHg (35.0-45.0); Total Hemoglobin 9.3 g/dL (12.0-18.0); pH ABG 7.396 (7.350-7.450)
[2025-02-22 13:34] LABS: PO2 ABG 35.9 mmHg (80.0-100.0)
[2025-02-22 13:35] LABS: Oxygen Saturation ABG 67.6 % (95.0-100.0); Oxyhemoglobin 66.5 % THb (90.0-100.0); Site Drawn RIGHT RADIAL
[2025-02-22 13:36] LABS: Device NASAL CANNULA; Modified Allen's Test Pass
[2025-02-22 16:58] LABS: Glucose Point of Care 70 mg/dl (65-105)
[2025-02-22] MEDS: PENTOXIFYLLINE 400 MG TABCR PO (17:58)
[2025-02-22] MEDS: INSULIN GLARGINE (*BKC) 100 UNITS/ML 6 UNITS SUB-Q (18:00)
[2025-02-22 18:05] LABS: Glucose Point of Care 102 mg/dl (65-105)
[2025-02-22] MEDS: TAMSULOSIN HCL 0.4 MG CAPSULE PO (21:23)
[2025-02-22] MEDS: ATORVASTATIN 20 MG TABLET PO (21:23)
[2025-02-23] VITALS (7 sets, daily range): BP systolic 116–153; BP diastolic 40–92; PULSE 48–71; RESP 14–18; TEMP 36.1–36.2; O2SAT 97–100
[2025-02-23 03:00] LABS: Glucose Point of Care 131 mg/dl (65-105)
[2025-02-23] MEDS: ACETAMINOPHEN 325 MG TABLET 650 MG PO ×3 (03:00→20:25)
[2025-02-23 05:37] LABS: Basophils Absolute Auto 0.1 K/mm3 (0.0-0.1); Basophils Percent Auto 1.8 % (0.2-1.2); Eosinophils Absolute Auto 0.2 K/mm3 (0-0.3); Eosinophils Percent Auto 3.9 % (0-4.4); Hematocrit 30.4 % (42.0-52.0); Hemoglobin 8.8 g/dL (14.0-18.0); Immature Granulocyte Absolute 0.02 K/mm3 (0.00-0.031); Immature Granulocyte Percent A 0.5 % (0-0.5); Lymphocytes Absolute Auto 0.64 K/mm3 (0.9-3.2); Lymphocytes Percent Auto 14.8 % (18.3-44.2); Mean Corpuscular HGB Conc 28.9 g/dl (32-36); Mean Corpuscular Hemoglobin 26.7 pg (26-34); Mean Corpuscular Volume 92.4 fl (80-100); Mean Platelet Volume 10.8 fl (7.4-10.4); Monocytes Absolute Auto 0.6 K/mm3 (0.1-0.6); Monocytes Percent Auto 12.9 % (2.6-8.5); Neutrophils Absolute Auto 2.9 K/mm3 (1.3-6.7); Neutrophils Percent Auto 66.1 % (45.5-73.1); Platelet Count Result 211 k/mm3 (150-375); Red Blood Count 3.29 M/mm3 (4.6-6.20); Red Cell Distribution Width 18.6 % (11.5-14.5); White Blood Count 4.3 K/mm3 (4.5-10.0)
[2025-02-23 05:49] LABS: Alanine Aminotransferase 12 U/L (6-50); Albumin Level 3.4 g/dL (3.5-5.1); Alkaline Phosphatase 50 U/L (38-126); Anion Gap 8 mmol/L (4-12); Aspartate Amino Transferase 15 U/L (17-59); Bilirubin,Total 0.6 mg/dL (0.2-1.3); Blood Urea Nitrogen 38 mg/dL (9-20); Calcium 11.7 mg/dL (8.4-10.2); Carbon Dioxide 31 mmol/L (22-30); Chloride 95 mmol/L (98-107); Estimated CRCL calculation 9 ml/min; Estimated Glomerular Filt Rate 9; Glucose 87 mg/dL (65-110); Magnesium 2.4 mg/dL (1.6-2.3); Potassium 4.1 mmol/L (3.4-5.0); Sodium 134 mmol/L (137-145)
[2025-02-23 06:21] LABS: Anisocytosis 1+; Hypochromasia 1+; Platelet Estimate Adequate (Adequate); Schistocytes None Seen; Stomatocytes 1+; Tear Drop Cells 1+
[2025-02-23 08:06] LABS: Glucose Point of Care 93 mg/dl (65-105)
[2025-02-23] MEDS: FINASTERIDE 5 MG TABLET PO (09:44)
[2025-02-23] MEDS: LORATADINE 10 MG TABLET PO (09:44)
[2025-02-23] MEDS: GABAPENTIN 100 MG CAPSULE PO ×3 (09:44→17:36)
[2025-02-23] MEDS: FUROSEMIDE 80 MG TABLET PO ×2 (09:44→17:36)
[2025-02-23] MEDS: CINACALCET 30 MG TABLET 90 MG PO (09:44)
[2025-02-23] MEDS: amLODIPine BESYLATE 10 MG TABLET PO (09:44)
[2025-02-23] MEDS: SEVELAMER CARBONATE 0.8 GM ORAL POWDER PACKET 3.2 GM PO ×3 (09:44→17:34)
[2025-02-23] MEDS: ASPIRIN 81 MG ENTERIC TABLET PO (09:44)
[2025-02-23] MEDS: carvediloL 25 MG TABLET PO (09:46)
[2025-02-23] MEDS: INSULIN ASPART (*BKC) 100 UNITS/ML SUB-Q ×2 (09:47→17:38)
[2025-02-23] MEDS: HEPARIN SODIUM 5,000 UNITS/ML VIAL 5000 UNITS SUB-Q ×2 (09:47→20:26)
[2025-02-23] MEDS: SILVER SULFADIAZINE 1% CR 50 GM JAR (*BKC) 1 APPLIC TOPICAL (09:48)
--- NOTE | 2025-02-23 11:15 | PM.IMPN ---
Progress Note: A&P Assessment and Plan (1) IDDM (insulin dependent diabetes mellitus): Status: Chronic (2) Pressure ulcer of left heel, unstageable: Code(s): L89.620 - Pressure ulcer of left heel, unstageable Status: Acute (3) Pneumonia: Qualifiers: Laterality: unspecified laterality Lung location: unspecified part of lung Pneumonia type: due to unspecified organism Qualified Code(s): J18.9 - Pneumonia, unspecified organism Code(s): J18.9 - Pneumonia, unspecified organism Status: Acute (4) Seizure disorder: Code(s): G40.909 - Epilepsy, unspecified, not intractable, without status epilepticus Status: Acute (5) Acute hypoxic respiratory failure: Code(s): J96.01 - Acute respiratory failure with hypoxia Status: Acute (6) Type 2 diabetes mellitus, with long-term current use of insulin: Qualifiers: Diabetes mellitus complication status: with neurologic complications Diabetes mellitus complication detail: with polyneuropathy Qualified Code(s): E11.42 - Type 2 diabetes mellitus with diabetic polyneuropathy; Z79.4 - parts counterman (current) use of insulin Code(s): E11.9 - Type 2 diabetes mellitus without complications; Z79.4 - parts counterman (current) use of insulin Status: Acute (7) CAD in [place] artery: Code(s): I25.10 - Atherosclerotic heart disease of [place] coronary artery without angina pectoris Status: Acute (8) End-stage renal disease on hemodialysis: Code(s): N18.6 - End stage renal disease; Z99.2 - Dependence on renal dialysis Status: Acute (9) Weakness: Code(s): R53.1 - Weakness Status: Acute (10) Elevated troponin: Code(s): R79.89 - Other specified abnormal findings of blood chemistry Status: Acute (11) Pulmonary edema: Qualifiers: Chronicity: acute Qualified Code(s): J81.0 - Acute pulmonary edema Code(s): J81.1 - Chronic pulmonary edema Status: Acute (12) Obstructive sleep apnea: Code(s): G47.33 - Obstructive sleep apnea (adult) (pediatric) Status: Acute Plan 79-year-old male with a past medical history of end-stage renal disease on dialysis Sunday, coronary artery disease status post CABG 2013, cardiac pacemaker due to sinus pauses October 2024, peripheral artery status post angioplasty and endarterectomy bilateral lower extremities, obstructive sleep apnea intolerant to CPAP, COPD, insulin-dependent diabetes mellitus, unstageable decubitus ulcer right heel with eschar among other comorbidities who [facility] due to weakness and blurred vision. The patient reports that in the late afternoon he felt as if he could not move any of his extremities. The shelter staff at also reported the patient had had some blurred vision patient did not mention mention vision changes at the time of my evaluation. On the scene the patient was found to be hypoxic. General weakness and blurred vision Patient presented weakness and stated he could not move any of his extremities for about [address] head shows no acute intracranial issues Possible due to hypoxemia needs to rule out neuro issues, consult neurologist for evaluation treatment Appreciate neurology's consultation, Neurology considers possible restriction on the shoulder pain Suspect cervical disc disease. Cervical CT from December 2024 showed chronic compression fracture of C4 and C5 along with multilevel face it joint disease and uncovertebral joint osteoarthritis changes. Has a pacemaker hence cannot get an MRI. CT cervical spine with no acute fracture. Moderate neuroforaminal narrowing on left at C4-5 and on the right at C2-3. Erosive changes at C3-C4 and C4-C5 disc stasis these appear chronic enlarged stable. Bilateral shoulder x-ray 0 11/15 were unremarkable. He may get MRI as an outpatient basis Acute respiratory failure with hypoxemia Possible due to CHF exacerbation pulmonary edema and pneumonia Patient received Lasix in the ED, Consult gas operations superintendent for dialysis Continue O2 therapy to keep pulse ox above 90 Patient is on 3 L oxygen via nasal cannular # status post pacemaker implantation for sinus node dysfunction Community-acquired pneumonia X-ray suggest bilateral basal pneumonia Patient was placed on ceftriaxone and doxy IV Follow-up procalcitonin level End-stage renal disease on hemodialysis Overloaded upon arrival Consult gas operations superintendent for dialysis Patient underwent hemodialysis yesterday, 3.4 L removed Continue inpatient hemodialysis Chronic anemia No obvious bleeding Resulting from chronic renal failure Management per gas operations superintendent Type 2 diabetes Patient is on Lantus 6 units, lispro 5 units a.c. and sliding scale Controlled # disposition: PT OT to see Subjective Date/time seen: 02/23/25 11:15 Interval history: He was lethargic and less responsive in the evening yesterday. ABG and CT scan reviewed. He work with therapy as well. He is very alert and oriented this morning. Review of Systems Review of Systems: All systems reviewed & are unremarkable except as noted in HPI and below Exam Narrative: GENERAL: Pleasant, in no acute distress. Well-nourished. - EYES: EOMI. Anicteric. - HENT: Moist mucous membranes. - LUNGS: Coarse breath sound bilaterally - CARDIOVASCULAR: Regular rate and rhythm. No murmur. No JVD. - ABDOMEN: Soft, non-tender and non-distended. No palpable masses. - EXTREMITIES: No edema. Peripheral pulses 2+. Non-tender. - NEUROLOGIC: No focal neurological deficits. CN II-XII grossly intact, upper extremities are weak bilaterally - PSYCHIATRIC: Awake, Alert and oriented x 3. Appropriate mood and affect. - SKIN: No rashes or lesions. Warm. - LYMPH: No cervical lymphadenopathy. Objective Data Vital Signs Vital Signs: Vital Signs - 24 hr 02/22/25 11:43 02/22/25 13:00 02/22/25 17:58 Temperature 98 F Pulse Rate 72 78 Respiratory Rate 19 Blood Pressure 109/56 L Pulse Oximetry 95 Oxygen Delivery Nasal Cannula Oxygen Flow Rate 2 Fraction of Inspired Oxygen 02/22/25 21:05 02/22/25 21:20 02/22/25 22:00 Temperature 97.1 F L Pulse Rate 77 70 Respiratory Rate 20 18 Blood Pressure 152/66 H Pulse Oximetry 97 96 97 Oxygen Delivery Nasal Cannula Nasal Cannula Oxygen Flow Rate 1 2 Fraction of Inspired Oxygen 24 02/23/25 06:00 02/23/25 08:00 02/23/25 08:34 Temperature 97.2 F L Pulse Rate 68 Respiratory Rate 18 Blood Pressure 153/60 H Pulse Oximetry 100 97 Oxygen Delivery Nasal Cannula Nasal Cannula Oxygen Flow Rate 1 1.5 Fraction of Inspired Oxygen 02/23/25 09:46 Temperature Pulse Rate 71 Respiratory Rate Blood Pressure Pulse Oximetry Oxygen Delivery Oxygen Flow Rate Fraction of Inspired Oxygen Intake/Output Intake/Output: Intake & Output 02/20/25 02/21/25 02/22/25 02/23/25 23:59 23:59 23:59 23:59 Intake Total 1080 1020 1070 640 Output Total 4000 0 Balance 1080 -2980 1070 640 Meds/Results Medications: Active Medications Generic Name Dose Route Start Last Admin Trade Name Freq PRN Reason Stop Dose Admin Acetaminophen 650 mg 02/15/25 23:52 02/23/25 09:49 Acetaminophen 325 Mg Tablet PO 650 mg Q4H PRN Administration Mild Pain (1-3) or Fever Amlodipine Besylate 10 mg 02/16/25 09:00 02/23/25 09:44 Amlodipine Besylate 10 Mg Tablet PO 10 mg DAILY DAVID Administration Aspirin 81 mg 02/16/25 09:00 02/23/25 09:44 Aspirin 81 Mg Enteric Tablet PO 81 mg DAILY DAVID Administration Atorvastatin Calcium 20 mg 02/16/25 21:00 02/22/25 21:23 Atorvastatin 20 Mg Tablet PO 20 mg HS DAVID Administration Bisacodyl 10 mg 02/16/25 07:03 Bisacodyl 10 Mg Suppository RECTAL DAILY PRN constipation Carvedilol 25 mg 02/16/25 08:00 02/23/25 09:46 Carvedilol 25 Mg Tablet PO 25 mg BIDWM DAVID Administration Cinacalcet 90 mg 02/16/25 09:00 02/23/25 09:44 Cinacalcet 30 Mg Tablet PO 03/18/25 08:59 90 mg DAILY DAVID Administration Dextrose 12.5 gm 02/16/25 08:20 Dextrose 50% 25 Gm/50 Ml Syringe IV PUSH PRN PRN Hypoglycemia Protocol Finasteride 5 mg 02/16/25 09:00 02/23/25 09:44 Finasteride 5 Mg Tablet PO 5 mg QAM DAVID Administration Furosemide 80 mg 02/16/25 09:00 02/23/25 09:44 Furosemide 80 Mg Tablet PO 80 mg BID DAVID Administration Gabapentin 100 mg 02/16/25 09:00 02/23/25 09:44 Gabapentin 100 Mg Capsule PO 100 mg TID DAVID Administration Glucagon 1 mg 02/16/25 08:20 Glucagon For Inj 1 Mg Vial IM PRN PRN Hypoglycemia Protocol Glucose 15 gm 02/16/25 08:20 Glucose Oral Gel 15 Gm Of Glucse In 37.5 Gm Tube PO PRN PRN Hypoglycemia Protocol Heparin Sodium (Porcine) 5,000 units 02/16/25 09:00 02/23/25 09:47 Heparin Sodium 5,000 Units/Ml Vial SUB-Q 5,000 units Q12HR DAVID Administration Dextrose 1,000 mls @ 100 mls/hr 02/16/25 08:20 Dextrose 5% 1,000 Ml IVPB PRN PRN Hypoglycemia Protocol Albumin Human 50 mls @ 999 mls/hr 02/17/25 06:27 Albutein IVPB 03/19/25 06:26 Q10M PRN HYPOTENSION Insulin Aspart 4 units 02/16/25 08:00 02/23/25 09:47 Insulin Aspart (*Bkc) 100 Units/Ml SUB-Q 4 units TIDWM DAVID Administration Insulin Aspart 2 - 5 units 02/16/25 12:00 02/23/25 09:38 Insulin Aspart (*Bkc) 100 Units/Ml SUB-Q Not Given TIDWM DAVID Protocol Insulin Glargine 6 units 02/16/25 18:00 02/22/25 18:00 Insulin Glargine (*Bkc) 100 Units/Ml SUB-Q 6 units QPM DAVID Administration Loratadine 10 mg 02/16/25 09:00 02/23/25 09:44 Loratadine 10 Mg Tablet PO 10 mg DAILY DAVID Administration Loratadine 10 mg 02/16/25 07:03 Loratadine 10 Mg Tablet PO DAILY PRN itching Pentoxifylline 400 mg 02/16/25 18:00 02/22/25 17:58 Pentoxifylline 400 Mg Tabcr PO 400 mg QPM DAVID Administration Sevelamer Carbonate 3.2 gm 02/16/25 08:00 02/23/25 09:44 Sevelamer Carbonate 0.8 Gm Oral Powder Packet PO 3.2 gm TIDWM DAVID Administration Silver Sulfadiazine 1 applic 02/16/25 09:00 02/23/25 09:48 Silver Sulfadiazine 1% Cr 50 Gm Jar (*Bkc) TOPICAL 1 applic QAM DAVID Administration Tamsulosin HCl 0.4 mg 02/16/25 21:00 02/22/25 21:23 Tamsulosin Hcl 0.4 Mg Capsule PO 0.4 mg QHS DAVID Administration Radiology Results: ITS Impressions Chest X-Ray 02/21/25 19:52 IMPRESSION: Improving edema and atelectasis. Cervical Spine CT 02/21/25 20:52 IMPRESSION: No acute fracture or traumatic malalignment in the cervical spine. Moderate neural foraminal narrowing on the left at C4-5 and on the right at C2-3. Erosive changes at the C3-4 and C4-5 disc spaces, also seen to a lesser extent in multiple facet joints. Mild prevertebral soft tissue thickening, most pronounced at the C5-6 disc level, probably representing inflammatory panus. These changes appear chronic and largely stable, and may be secondary to inflammatory or crystalline arthropathy. Osteomyelitis/discitis considered less likely. Chronic height loss at C3 and C4 and chronic anterior wedge deformity at C5. Sclerosis of the C4 vertebral body probably related to degenerative change/arthropathy, noting that sclerotic metastases could appear similarly. Head CT 02/22/25 15:07 IMPRESSION: No acute intracranial process. 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 Labs Labs: Laboratory Results - last 24 hr 02/22/25 02/22/25 02/22/25 12:12 13:16 16:48 WBC RBC Hgb Hct MCV MCH MCHC RDW Plt Count MPV Immature Gran % (Auto) Neut % (Auto) Lymph % (Auto) [place] % (Auto) Eos % (Auto) Baso % (Auto) Lymph # (Auto) [place] # (Auto) Eos # (Auto) Baso # (Auto) Abs Immat Gran (auto) Absolute Neuts (auto) Absolute Nucleated RBC Band Neutrophils % Nucleated RBC % Platelet Estimate Hypochromasia Anisocytosis Tear Drop Cells Stomatocytes Schistocytes Puncture Site Right radial ABG pH 7.396 ABG pCO2 50.3 H ABG pO2 35.9 L* ABG PO2/FiO2 Ratio 1.50 ABG HCO3 30.2 H ABG O2 Saturation 67.6 L* ABG O2 Content 8.7 L ABG Base Excess 4.6 A-a Gradient 75.4 Oxyhemoglobin 66.5 L* Total Hemoglobin 9.3 L O2 Delivery Device Nasal cannula O2 Liters/Min 1.0 FiO2 24 Sodium Potassium Chloride Carbon Dioxide Anion Gap BUN Creatinine Estim Creat Clear Calc Estimated GFR Glucose POC Capillary Glucose 120 H 70 Calcium Magnesium Total Bilirubin AST ALT Alkaline Phosphatase Total Protein Albumin 02/22/25 02/22/25 02/23/25 18:02 20:03 05:25 WBC 4.3 L RBC 3.29 L Hgb 8.8 L Hct 30.4 L MCV 92.4 MCH 26.7 MCHC 28.9 L RDW 18.6 H Plt Count 211 MPV 10.8 H Immature Gran % (Auto) 0.5 Neut % (Auto) 66.1 Lymph % (Auto) 14.8 L [place] % (Auto) 12.9 H Eos % (Auto) 3.9 Baso % (Auto) 1.8 H Lymph # (Auto) 0.64 L [place] # (Auto) 0.6 Eos # (Auto) 0.2 Baso # (Auto) 0.1 Abs Immat Gran (auto) 0.02 Absolute Neuts (auto) 2.9 Absolute Nucleated RBC 0.000 Band Neutrophils % Not Reportable Nucleated RBC % 0.0 Platelet Estimate Adequate Hypochromasia 1+ Anisocytosis 1+ Tear Drop Cells 1+ Stomatocytes 1+ Schistocytes None seen Puncture Site ABG pH ABG pCO2 ABG pO2 ABG PO2/FiO2 Ratio ABG HCO3 ABG O2 Saturation ABG O2 Content ABG Base Excess A-a Gradient Oxyhemoglobin Total Hemoglobin O2 Delivery Device O2 Liters/Min FiO2 Sodium 134 L Potassium 4.1 Chloride 95 L Carbon Dioxide 31 H Anion Gap 8 BUN 38 H Creatinine 6.14 H Estim Creat Clear Calc 9 Estimated GFR 9 L Glucose 87 POC Capillary Glucose 102 131 H Calcium 11.7 H Magnesium 2.4 H Total Bilirubin 0.6 AST 15 L ALT 12 Alkaline Phosphatase 50 Total Protein 6.0 L Albumin 3.4 L 02/23/25 07:53 WBC RBC Hgb Hct MCV MCH MCHC RDW Plt Count MPV Immature Gran % (Auto) Neut % (Auto) Lymph % (Auto) [place] % (Auto) Eos % (Auto) Baso % (Auto) Lymph # (Auto) [place] # (Auto) Eos # (Auto) Baso # (Auto) Abs Immat Gran (auto) Absolute Neuts (auto) Absolute Nucleated RBC Band Neutrophils % Nucleated RBC % Platelet Estimate Hypochromasia Anisocytosis Tear Drop Cells Stomatocytes Schistocytes Puncture Site ABG pH ABG pCO2 ABG pO2 ABG PO2/FiO2 Ratio ABG HCO3 ABG O2 Saturation ABG O2 Content ABG Base Excess A-a Gradient Oxyhemoglobin Total Hemoglobin O2 Delivery Device O2 Liters/Min FiO2 Sodium Potassium Chloride Carbon Dioxide Anion Gap BUN Creatinine Estim Creat Clear Calc Estimated GFR Glucose POC Capillary Glucose 93 Calcium Magnesium Total Bilirubin AST ALT Alkaline Phosphatase Total Protein Albumin
--- NOTE | 2025-02-23 11:33 | P.PNNEUR_ITS ---
Progress Note: A&P Assessment and Plan (1) Left cervical radiculopathy: Code(s): M54.12 - Radiculopathy, cervical region Status: Acute (2) Diabetic polyneuropathy: Code(s): E11.42 - Type 2 diabetes mellitus with diabetic polyneuropathy Status: Acute (3) Seizure disorder: Code(s): G40.909 - Epilepsy, unspecified, not intractable, without status epilepticus Status: Acute (4) IDDM (insulin dependent diabetes mellitus): Status: Chronic (5) Diabetic ulcer of left foot: Qualifiers: Diabetic foot ulcer location: heel Diabetes mellitus type: type 2 Non- pressure ulcer stage: limited to breakdown of skin Qualified Code(s): E11.621 - Type 2 diabetes mellitus with foot ulcer; L97.421 - Non-pressure chronic ulcer of left heel and midfoot limited to breakdown of skin Code(s): E11.621 - Type 2 diabetes mellitus with foot ulcer; L97.529 - Non-pressure chronic ulcer of other part of left foot with unspecified severity Status: Acute (6) End-stage renal disease on hemodialysis: Code(s): N18.6 - End stage renal disease; Z99.2 - Dependence on renal dialysis Status: Acute Plan I agree that he most likely has moderate left C5-6 radiculopathy. It is difficult to assess the cervical spine without MRI or a CT myelogram. You may consider neurosurgical consultation. Subjective Date/time seen: 02/23/25 11:33 Interval history: The patient denies any additional new symptoms however he was seen previously with regard to weakness in upper lower limbs. 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 However it was noted that he was found to have some arthritic changes in cervical spine and there is a suspicion of cervical radiculopathy. He cannot have MRI of the cervical spine due to the pacemaker. Hence he was re-examined. He denies any additional new symptoms. Review of Systems Review of Systems: All systems reviewed & are unremarkable except as noted in HPI and below Exam Narrative: Examination mental status memory and speech within normal limits. Cranial nerves your testing intact. Motor system he does appear to have some weakness in the see left C5-6 distribution but not significant on the right side. No other additional new findings were noted. Is still unable to raise his arms above his head on both sides. However the strength of the deltoid biceps and supra and infraspinatus on the right side appears to be definitely better than the left side. Objective Data Vital Signs Vital Signs: Vital Signs - 24 hr 02/22/25 11:43 02/22/25 13:00 02/22/25 17:58 Temperature 98 F Pulse Rate 72 78 Respiratory Rate 19 Blood Pressure 109/56 L Pulse Oximetry 95 Oxygen Delivery Nasal Cannula Oxygen Flow Rate 2 Fraction of Inspired Oxygen 02/22/25 21:05 02/22/25 21:20 02/22/25 22:00 Temperature 97.1 F L Pulse Rate 77 70 Respiratory Rate 20 18 Blood Pressure 152/66 H Pulse Oximetry 97 96 97 Oxygen Delivery Nasal Cannula Nasal Cannula Oxygen Flow Rate 1 2 Fraction of Inspired Oxygen 24 02/23/25 06:00 02/23/25 08:00 02/23/25 08:34 Temperature 97.2 F L Pulse Rate 68 Respiratory Rate 18 Blood Pressure 153/60 H Pulse Oximetry 100 97 Oxygen Delivery Nasal Cannula Nasal Cannula Oxygen Flow Rate 1 1.5 Fraction of Inspired Oxygen 02/23/25 09:46 Temperature Pulse Rate 71 Respiratory Rate Blood Pressure Pulse Oximetry Oxygen Delivery Oxygen Flow Rate Fraction of Inspired Oxygen Intake/Output Intake/Output: Intake & Output 02/20/25 02/21/25 02/22/25 02/23/25 23:59 23:59 23:59 23:59 Intake Total 1080 1020 1070 640 Output Total 4000 0 Balance 1080 -2980 1070 640 Meds/Results Medications: Active Medications Generic Name Dose Route Start Last Admin Trade Name Freq PRN Reason Stop Dose Admin Acetaminophen 650 mg 02/15/25 23:52 02/23/25 09:49 Acetaminophen 325 Mg Tablet PO 650 mg Q4H PRN Administration Mild Pain (1-3) or Fever Amlodipine Besylate 10 mg 02/16/25 09:00 02/23/25 09:44 Amlodipine Besylate 10 Mg Tablet PO 10 mg DAILY DAVID Administration Aspirin 81 mg 02/16/25 09:00 02/23/25 09:44 Aspirin 81 Mg Enteric Tablet PO 81 mg DAILY DAVID Administration Atorvastatin Calcium 20 mg 02/16/25 21:00 02/22/25 21:23 Atorvastatin 20 Mg Tablet PO 20 mg HS DAVID Administration Bisacodyl 10 mg 02/16/25 07:03 Bisacodyl 10 Mg Suppository RECTAL DAILY PRN constipation Carvedilol 25 mg 02/16/25 08:00 02/23/25 09:46 Carvedilol 25 Mg Tablet PO 25 mg BIDWM DAVID Administration Cinacalcet 90 mg 02/16/25 09:00 02/23/25 09:44 Cinacalcet 30 Mg Tablet PO 03/18/25 08:59 90 mg DAILY DAVID Administration Dextrose 12.5 gm 02/16/25 08:20 Dextrose 50% 25 Gm/50 Ml Syringe IV PUSH PRN PRN Hypoglycemia Protocol Finasteride 5 mg 02/16/25 09:00 02/23/25 09:44 Finasteride 5 Mg Tablet PO 5 mg QAM DAVID Administration Furosemide 80 mg 02/16/25 09:00 02/23/25 09:44 Furosemide 80 Mg Tablet PO 80 mg BID DAVID Administration Gabapentin 100 mg 02/16/25 09:00 02/23/25 09:44 Gabapentin 100 Mg Capsule PO 100 mg TID DAVID Administration Glucagon 1 mg 02/16/25 08:20 Glucagon For Inj 1 Mg Vial IM PRN PRN Hypoglycemia Protocol Glucose 15 gm 02/16/25 08:20 Glucose Oral Gel 15 Gm Of Glucse In 37.5 Gm Tube PO PRN PRN Hypoglycemia Protocol Heparin Sodium (Porcine) 5,000 units 02/16/25 09:00 02/23/25 09:47 Heparin Sodium 5,000 Units/Ml Vial SUB-Q 5,000 units Q12HR DAVID Administration Dextrose 1,000 mls @ 100 mls/hr 02/16/25 08:20 Dextrose 5% 1,000 Ml IVPB PRN PRN Hypoglycemia Protocol Albumin Human 50 mls @ 999 mls/hr 02/17/25 06:27 Albutein IVPB 03/19/25 06:26 Q10M PRN HYPOTENSION Insulin Aspart 4 units 02/16/25 08:00 02/23/25 09:47 Insulin Aspart (*Bkc) 100 Units/Ml SUB-Q 4 units TIDWM DAVID Administration Insulin Aspart 2 - 5 units 02/16/25 12:00 02/23/25 09:38 Insulin Aspart (*Bkc) 100 Units/Ml SUB-Q Not Given TIDWM DAVID Protocol Insulin Glargine 6 units 02/16/25 18:00 02/22/25 18:00 Insulin Glargine (*Bkc) 100 Units/Ml SUB-Q 6 units QPM DAVID Administration Loratadine 10 mg 02/16/25 09:00 02/23/25 09:44 Loratadine 10 Mg Tablet PO 10 mg DAILY DAVID Administration Loratadine 10 mg 02/16/25 07:03 Loratadine 10 Mg Tablet PO DAILY PRN itching Pentoxifylline 400 mg 02/16/25 18:00 02/22/25 17:58 Pentoxifylline 400 Mg Tabcr PO 400 mg QPM DAVID Administration Sevelamer Carbonate 3.2 gm 02/16/25 08:00 02/23/25 09:44 Sevelamer Carbonate 0.8 Gm Oral Powder Packet PO 3.2 gm TIDWM DAVID Administration Silver Sulfadiazine 1 applic 02/16/25 09:00 02/23/25 09:48 Silver Sulfadiazine 1% Cr 50 Gm Jar (*Bkc) TOPICAL 1 applic QAM DAVID Administration Tamsulosin HCl 0.4 mg 02/16/25 21:00 02/22/25 21:23 Tamsulosin Hcl 0.4 Mg Capsule PO 0.4 mg QHS DAVID Administration Radiology Results: ITS Impressions Chest X-Ray 02/21/25 19:52 IMPRESSION: Improving edema and atelectasis. Cervical Spine CT 02/21/25 20:52 IMPRESSION: No acute fracture or traumatic malalignment in the cervical spine. Moderate neural foraminal narrowing on the left at C4-5 and on the right at C2- 3. Erosive changes at the C3-4 and C4-5 disc spaces, also seen to a lesser extent in multiple facet joints. Mild prevertebral soft tissue thickening, most pronounced at the C5-6 disc level, probably representing inflammatory panus. These changes appear chronic and largely stable, and may be secondary to inflammatory or crystalline arthropathy. Osteomyelitis/discitis considered less likely. Chronic height loss at C3 and C4 and chronic anterior wedge deformity at C5. Sclerosis of the C4 vertebral body probably related to degenerative change/arthropathy, noting that sclerotic metastases could appear similarly. Head CT 02/22/25 15:07 IMPRESSION: No acute intracranial process. 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 Labs Labs: Laboratory Results - last 24 hr 02/22/25 02/22/25 02/22/25 12:12 13:16 16:48 WBC RBC Hgb Hct MCV MCH MCHC RDW Plt Count MPV Immature Gran % (Auto) Neut % (Auto) Lymph % (Auto) [place] % (Auto) Eos % (Auto) Baso % (Auto) Lymph # (Auto) [place] # (Auto) Eos # (Auto) Baso # (Auto) Abs Immat Gran (auto) Absolute Neuts (auto) Absolute Nucleated RBC Band Neutrophils % Nucleated RBC % Platelet Estimate Hypochromasia Anisocytosis Tear Drop Cells Stomatocytes Schistocytes Puncture Site Right radial ABG pH 7.396 ABG pCO2 50.3 H ABG pO2 35.9 L* ABG PO2/FiO2 Ratio 1.50 ABG HCO3 30.2 H ABG O2 Saturation 67.6 L* ABG O2 Content 8.7 L ABG Base Excess 4.6 A-a Gradient 75.4 Oxyhemoglobin 66.5 L* Total Hemoglobin 9.3 L O2 Delivery Device Nasal cannula O2 Liters/Min 1.0 FiO2 24 Sodium Potassium Chloride Carbon Dioxide Anion Gap BUN Creatinine Estim Creat Clear Calc Estimated GFR Glucose POC Capillary Glucose 120 H 70 Calcium Magnesium Total Bilirubin AST ALT Alkaline Phosphatase Total Protein Albumin 02/22/25 02/22/25 02/23/25 18:02 20:03 05:25 WBC 4.3 L RBC 3.29 L Hgb 8.8 L Hct 30.4 L MCV 92.4 MCH 26.7 MCHC 28.9 L RDW 18.6 H Plt Count 211 MPV 10.8 H Immature Gran % (Auto) 0.5 Neut % (Auto) 66.1 Lymph % (Auto) 14.8 L [place] % (Auto) 12.9 H Eos % (Auto) 3.9 Baso % (Auto) 1.8 H Lymph # (Auto) 0.64 L [place] # (Auto) 0.6 Eos # (Auto) 0.2 Baso # (Auto) 0.1 Abs Immat Gran (auto) 0.02 Absolute Neuts (auto) 2.9 Absolute Nucleated RBC 0.000 Band Neutrophils % Not Reportable Nucleated RBC % 0.0 Platelet Estimate Adequate Hypochromasia 1+ Anisocytosis 1+ Tear Drop Cells 1+ Stomatocytes 1+ Schistocytes None seen Puncture Site ABG pH ABG pCO2 ABG pO2 ABG PO2/FiO2 Ratio ABG HCO3 ABG O2 Saturation ABG O2 Content ABG Base Excess A-a Gradient Oxyhemoglobin Total Hemoglobin O2 Delivery Device O2 Liters/Min FiO2 Sodium 134 L Potassium 4.1 Chloride 95 L Carbon Dioxide 31 H Anion Gap 8 BUN 38 H Creatinine 6.14 H Estim Creat Clear Calc 9 Estimated GFR 9 L Glucose 87 POC Capillary Glucose 102 131 H Calcium 11.7 H Magnesium 2.4 H Total Bilirubin 0.6 AST 15 L ALT 12 Alkaline Phosphatase 50 Total Protein 6.0 L Albumin 3.4 L 02/23/25 07:53 WBC RBC Hgb Hct MCV MCH MCHC RDW Plt Count MPV Immature Gran % (Auto) Neut % (Auto) Lymph % (Auto) [place] % (Auto) Eos % (Auto) Baso % (Auto) Lymph # (Auto) [place] # (Auto) Eos # (Auto) Baso # (Auto) Abs Immat Gran (auto) Absolute Neuts (auto) Absolute Nucleated RBC Band Neutrophils % Nucleated RBC % Platelet Estimate Hypochromasia Anisocytosis Tear Drop Cells Stomatocytes Schistocytes Puncture Site ABG pH ABG pCO2 ABG pO2 ABG PO2/FiO2 Ratio ABG HCO3 ABG O2 Saturation ABG O2 Content ABG Base Excess A-a Gradient Oxyhemoglobin Total Hemoglobin O2 Delivery Device O2 Liters/Min FiO2 Sodium Potassium Chloride Carbon Dioxide Anion Gap BUN Creatinine Estim Creat Clear Calc Estimated GFR Glucose POC Capillary Glucose 93 Calcium Magnesium Total Bilirubin AST ALT Alkaline Phosphatase Total Protein Albumin
[2025-02-23 11:34] LABS: Glucose Point of Care 90 mg/dl (65-105)
--- NOTE | 2025-02-23 11:38 | P.PNNP_ITS ---
Progress Note: A&P Assessment and Plan (1) End stage renal disease: Code(s): N18.6 - End stage renal disease Status: Chronic Assessment and Plan: * HD tommorow * continue T/T/S outpatient dialysis schedule while hospitalized * follow electrolytes, volume status, and clearance (2) Acute respiratory failure with hypoxia: Code(s): J96.01 - Acute respiratory failure with hypoxia Status: Acute Assessment and Plan: * improving * due to several issues: * mild pulmonary edema * suspected pneumonia * chronic CHF * COPD * relative anemia * fluid removal/ultrafiltration with dialysis as tolerated * on antibiotics, nebulizer treatments, and supplemental oxygen * wean supplemental oxygen as tolerated * follow respiratory status (3) Upper extremity weakness: Code(s): R29.898 - Other symptoms and signs involving the musculoskeletal system Status: Acute Assessment and Plan: * as noted on presentation * CT of head negative for acute process * Neurology recommendations noted * CT of cervical spine results reviewed (4) Pneumonia: Qualifiers: Laterality: unspecified laterality Lung location: unspecified part of lung Pneumonia type: due to unspecified organism Qualified Code(s): J18.9 - Pneumonia, unspecified organism Code(s): J18.9 - Pneumonia, unspecified organism Status: Acute Assessment and Plan: * admission CXR with suggestion of pneumonia * on antibiotic therapy * follow culture data - negative to date (5) Hypercalcemia: Code(s): E83.52 - Hypercalcemia Status: Acute Assessment and Plan: * noted over the last several days * not clear on etiology * sensipar/cinacalcet usually causes hypocalcemia * possibly due to prolonged immobilization/bed bound state? * adjusting calcium bath with dialysis to compensate (6) Anemia: Code(s): D64.9 - Anemia, unspecified Status: Chronic Assessment and Plan: * due to ESRD * Epogen with HD * follow trend of H/H (7) Essential (primary) hypertension: Code(s): I10 - Essential (primary) hypertension Status: Chronic Assessment and Plan: * reasonable control at this time * follow trend of hemodynamics (8) IDDM (insulin dependent diabetes mellitus): Status: Chronic Assessment and Plan: * follow accu-cheks * glycemic control per hospitalists Will continue to follow. L Subjective Date/time seen: 02/23/25 11:38 Interval history: Follow-up for end stage renal disease on hemodialysis. Sitting up in chair resting comfortably at the time of my visit; issues with lethargy yesterday afternoon but appears mentation appears back to baseline when seen today; no apparent distress noted; breathing/respiratory status appears stable if not better. Exam 2 Narrative: General: elderly WD/WN male in NAD Heart: normal S1 and S2; no rub Lungs: coarse breath sounds at bases Abdomen: soft, nontender, nondistended, positive bowel sounds Extremities: no cyanosis or clubbing; trace edema Skin: no rash Objective Data Vital Signs Vital Signs: Vital Signs Temp Pulse Resp BP Pulse Ox O2 Del Method O2 Flow Rate 02/23/25 09:46 71 02/23/25 08:34 Nasal Cannula 1.5 02/23/25 08:00 97 Nasal Cannula 1 02/23/25 06:00 97.2 F L 68 18 153/60 H 100 02/22/25 22:00 97.1 F L 70 18 152/66 H 97 02/22/25 21:20 96 Nasal Cannula 2 02/22/25 21:05 77 20 97 Nasal Cannula 1 02/22/25 17:58 78 02/22/25 13:00 98 F 72 19 109/56 L 95 Intake/Output Intake/Output: Intake & Output 02/20/25 02/21/25 02/22/25 02/23/25 23:59 23:59 23:59 23:59 Intake Total 1080 1020 1070 640 Output Total 4000 0 Balance 1080 -2980 1070 640 Meds/Results Medications: Active Medications Generic Name Dose Route Start Last Admin Trade Name Freq PRN Reason Stop Dose Admin Acetaminophen 650 mg 02/15/25 23:52 02/23/25 09:49 Acetaminophen 325 Mg Tablet PO 650 mg Q4H PRN Administration Mild Pain (1-3) or Fever Amlodipine Besylate 10 mg 02/16/25 09:00 02/23/25 09:44 Amlodipine Besylate 10 Mg Tablet PO 10 mg DAILY DAVID Administration Aspirin 81 mg 02/16/25 09:00 02/23/25 09:44 Aspirin 81 Mg Enteric Tablet PO 81 mg DAILY DAVID Administration Atorvastatin Calcium 20 mg 02/16/25 21:00 02/22/25 21:23 Atorvastatin 20 Mg Tablet PO 20 mg HS DAVID Administration Bisacodyl 10 mg 02/16/25 07:03 Bisacodyl 10 Mg Suppository RECTAL DAILY PRN constipation Carvedilol 25 mg 02/16/25 08:00 02/23/25 09:46 Carvedilol 25 Mg Tablet PO 25 mg BIDWM DAVID Administration Cinacalcet 90 mg 02/16/25 09:00 02/23/25 09:44 Cinacalcet 30 Mg Tablet PO 03/18/25 08:59 90 mg DAILY DAVID Administration Dextrose 12.5 gm 02/16/25 08:20 Dextrose 50% 25 Gm/50 Ml Syringe IV PUSH PRN PRN Hypoglycemia Protocol Finasteride 5 mg 02/16/25 09:00 02/23/25 09:44 Finasteride 5 Mg Tablet PO 5 mg QAM DAVID Administration Furosemide 80 mg 02/16/25 09:00 02/23/25 09:44 Furosemide 80 Mg Tablet PO 80 mg BID DAVID Administration Gabapentin 100 mg 02/16/25 09:00 02/23/25 12:28 Gabapentin 100 Mg Capsule PO 100 mg TID DAVID Administration Glucagon 1 mg 02/16/25 08:20 Glucagon For Inj 1 Mg Vial IM PRN PRN Hypoglycemia Protocol Glucose 15 gm 02/16/25 08:20 Glucose Oral Gel 15 Gm Of Glucse In 37.5 Gm Tube PO PRN PRN Hypoglycemia Protocol Heparin Sodium (Porcine) 5,000 units 02/16/25 09:00 02/23/25 09:47 Heparin Sodium 5,000 Units/Ml Vial SUB-Q 5,000 units Q12HR DAVID Administration Dextrose 1,000 mls @ 100 mls/hr 02/16/25 08:20 Dextrose 5% 1,000 Ml IVPB PRN PRN Hypoglycemia Protocol Albumin Human 50 mls @ 999 mls/hr 02/17/25 06:27 Albutein IVPB 03/19/25 06:26 Q10M PRN HYPOTENSION Insulin Aspart 4 units 02/16/25 08:00 02/23/25 09:47 Insulin Aspart (*Bkc) 100 Units/Ml SUB-Q 4 units TIDWM DAVID Administration Insulin Aspart 2 - 5 units 02/16/25 12:00 02/23/25 11:48 Insulin Aspart (*Bkc) 100 Units/Ml SUB-Q Not Given TIDWM DAVID Protocol Insulin Glargine 6 units 02/16/25 18:00 02/22/25 18:00 Insulin Glargine (*Bkc) 100 Units/Ml SUB-Q 6 units QPM DAVID Administration Loratadine 10 mg 02/16/25 09:00 02/23/25 09:44 Loratadine 10 Mg Tablet PO 10 mg DAILY DAIVD Administration Loratadine 10 mg 02/16/25 07:03 Loratadine 10 Mg Tablet PO DAILY PRN itching Pentoxifylline 400 mg 02/16/25 18:00 02/22/25 17:58 Pentoxifylline 400 Mg Tabcr PO 400 mg QPM DAVID Administration Sevelamer Carbonate 3.2 gm 02/16/25 08:00 02/23/25 12:29 Sevelamer Carbonate 0.8 Gm Oral Powder Packet PO 3.2 gm TIDWM DAVID Administration Silver Sulfadiazine 1 applic 02/16/25 09:00 02/23/25 09:48 Silver Sulfadiazine 1% Cr 50 Gm Jar (*Bkc) TOPICAL 1 applic QAM DAVID Administration Tamsulosin HCl 0.4 mg 02/16/25 21:00 02/22/25 21:23 Tamsulosin Hcl 0.4 Mg Capsule PO 0.4 mg QHS DAVID Administration Radiology Results: ITS Impressions Chest X-Ray 02/21/25 19:52 IMPRESSION: Improving edema and atelectasis. Cervical Spine CT 02/21/25 20:52 IMPRESSION: No acute fracture or traumatic malalignment in the cervical spine. Moderate neural foraminal narrowing on the left at C4-5 and on the right at C2- 3. Erosive changes at the C3-4 and C4-5 disc spaces, also seen to a lesser extent in multiple facet joints. Mild prevertebral soft tissue thickening, most pronounced at the C5-6 disc level, probably representing inflammatory panus. These changes appear chronic and largely stable, and may be secondary to inflammatory or crystalline arthropathy. Osteomyelitis/discitis considered less likely. Chronic height loss at C3 and C4 and chronic anterior wedge deformity at C5. Sclerosis of the C4 vertebral body probably related to degenerative change/arthropathy, noting that sclerotic metastases could appear similarly. Head CT 02/22/25 15:07 IMPRESSION: No acute intracranial process. 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 Labs Labs: Laboratory Tests 02/23/25 05:25 02/23/25 05:25 Calcium 11.7 H Magnesium 2.4 H Total Bilirubin 0.6 AST 15 L ALT 12 Alkaline Phosphatase 50 Total Protein 6.0 L Albumin 3.4 L
[2025-02-23 16:35] LABS: Glucose Point of Care 120 mg/dl (65-105)
[2025-02-23] MEDS: PENTOXIFYLLINE 400 MG TABCR PO (17:36)
[2025-02-23] MEDS: INSULIN GLARGINE (*BKC) 100 UNITS/ML 6 UNITS SUB-Q (17:38)
[2025-02-23] MEDS: ATORVASTATIN 20 MG TABLET PO (20:26)
[2025-02-23] MEDS: TAMSULOSIN HCL 0.4 MG CAPSULE PO (20:26)
[2025-02-24] VITALS (23 sets, daily range): BP systolic 98–147; BP diastolic 48–78; PULSE 63–79; RESP 16–18; TEMP 35.7–37; O2SAT 95–100
[2025-02-24 05:26] LABS: Glucose Point of Care 159 mg/dl (65-105)
--- NOTE | 2025-02-24 07:44 | PC.NURSE ---
To dialysis via bed this AM, Reports given to Wilian MARQUEZ
[2025-02-24] MEDS: EPOETIN ALFA-EPBX 4,000 UNITS/ML VIAL 8000 UNITS IV PUSH (08:36)
[2025-02-24] MEDS: EPOETIN ALFA-EPBX 2,000 UNITS/ML VIAL 2000 UNITS IV PUSH (08:37)
[2025-02-24] MEDS: SODIUM CHLORIDE 0.9% IV 1,000 ML 999 ML IV CONT (08:38)
--- NOTE | 2025-02-24 11:05 | P.PNNP_ITS ---
Progress Note: A&P Assessment and Plan (1) End stage renal disease: Code(s): N18.6 - End stage renal disease Status: Chronic Assessment and Plan: * HD today * continue T/T/S outpatient dialysis schedule while hospitalized * follow electrolytes, volume status, and clearance (2) Acute respiratory failure with hypoxia: Code(s): J96.01 - Acute respiratory failure with hypoxia Status: Acute Assessment and Plan: * improving * due to several issues: * mild pulmonary edema * suspected pneumonia * chronic CHF * COPD * relative anemia * fluid removal/ultrafiltration with dialysis as tolerated * on antibiotics, nebulizer treatments, and supplemental oxygen * wean supplemental oxygen as tolerated * follow respiratory status (3) Upper extremity weakness: Code(s): R29.898 - Other symptoms and signs involving the musculoskeletal system Status: Acute Assessment and Plan: * as noted on presentation * CT of head negative for acute process * Neurology recommendations noted * CT of cervical spine results reviewed * suspect cervical radiculopathy... (4) Pneumonia: Qualifiers: Laterality: unspecified laterality Lung location: unspecified part of lung Pneumonia type: due to unspecified organism Qualified Code(s): J18.9 - Pneumonia, unspecified organism Code(s): J18.9 - Pneumonia, unspecified organism Status: Acute Assessment and Plan: * admission CXR with suggestion of pneumonia * on antibiotic therapy * follow culture data - negative to date (5) Hypercalcemia: Code(s): E83.52 - Hypercalcemia Status: Acute Assessment and Plan: * noted over the last several days * not clear on etiology * sensipar/cinacalcet usually causes hypocalcemia * possibly due to prolonged immobilization/bed bound state? * adjusting calcium bath with dialysis to compensate (6) Anemia: Code(s): D64.9 - Anemia, unspecified Status: Chronic Assessment and Plan: * due to ESRD * Epogen with HD * follow trend of H/H (7) Essential (primary) hypertension: Code(s): I10 - Essential (primary) hypertension Status: Chronic Assessment and Plan: * reasonable control at this time * follow trend of hemodynamics (8) IDDM (insulin dependent diabetes mellitus): Status: Chronic Assessment and Plan: * follow accu-cheks * glycemic control per hospitalists Will continue to follow. L Subjective Date/time seen: 02/24/25 11:05 Interval history: Follow-up for end stage renal disease on hemodialysis. 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 Exam 2 Narrative: General: elderly WD/WN male in NAD Heart: normal S1 and S2; no rub Lungs: coarse breath sounds at bases Abdomen: soft, nontender, nondistended, positive bowel sounds Extremities: no cyanosis or clubbing; trace edema Skin: no nodules Objective Data Vital Signs Vital Signs: Vital Signs Temp Pulse Resp BP Pulse Ox O2 Del Method O2 Flow Rate 02/24/25 10:45 79 118/66 02/24/25 10:30 67 105/60 02/24/25 10:15 70 98/56 L 02/24/25 10:00 73 102/64 02/24/25 09:45 69 112/60 02/24/25 09:30 66 118/64 02/24/25 09:15 63 119/60 02/24/25 09:00 69 126/62 02/24/25 08:45 64 122/62 02/24/25 08:30 65 118/68 02/24/25 08:15 68 112/63 02/24/25 08:00 73 132/70 02/24/25 07:45 72 147/77 H 02/24/25 07:39 69 133/78 02/24/25 07:30 2 02/24/25 07:30 98.1 F 68 16 139/71 100 02/24/25 06:00 97.0 F L 66 16 130/54 L 95 02/23/25 22:00 97.0 F L 58 L 18 116/40 L 99 02/23/25 20:00 99 Nasal Cannula 1.5 02/23/25 17:41 48 L 02/23/25 14:00 97.0 F L 65 14 134/92 H 99 Intake/Output Intake/Output: Intake & Output 02/21/25 02/22/25 02/23/25 02/24/25 23:59 23:59 23:59 23:59 Intake Total 1020 1070 1388 400 Output Total 4000 0 0 3000 Balance -2980 1070 1388 -2600 Meds/Results Medications: Active Medications Generic Name Dose Route Start Last Admin Trade Name Natanq PRN Reason Stop Dose Admin Acetaminophen 650 mg 02/15/25 23:52 02/24/25 11:56 Acetaminophen 325 Mg Tablet PO 650 mg Q4H PRN Administration Mild Pain (1-3) or Fever Amlodipine Besylate 10 mg 02/16/25 09:00 02/24/25 11:46 Amlodipine Besylate 10 Mg Tablet PO 10 mg DAILY DAVID Administration Aspirin 81 mg 02/16/25 09:00 02/24/25 11:46 Aspirin 81 Mg Enteric Tablet PO 81 mg DAILY DAVID Administration Atorvastatin Calcium 20 mg 02/16/25 21:00 02/23/25 20:26 Atorvastatin 20 Mg Tablet PO 20 mg HS DAVID Administration Bisacodyl 10 mg 02/16/25 07:03 Bisacodyl 10 Mg Suppository RECTAL DAILY PRN constipation Carvedilol 25 mg 02/16/25 08:00 02/24/25 11:46 Carvedilol 25 Mg Tablet PO 25 mg BIDWM DAVID Administration Cinacalcet 90 mg 02/16/25 09:00 02/24/25 11:45 Cinacalcet 30 Mg Tablet PO 03/18/25 08:59 90 mg DAILY DAVID Administration Dextrose 12.5 gm 02/16/25 08:20 Dextrose 50% 25 Gm/50 Ml Syringe IV PUSH PRN PRN Hypoglycemia Protocol Epoetin David-epbx 8,000 units 02/24/25 17:36 02/24/25 08:36 Epoetin David-Epbx 4,000 Units/Ml Vial IV PUSH 02/24/25 17:37 8,000 units ONCE ONE Administration Epoetin David-epbx 2,000 units 02/24/25 17:36 02/24/25 08:37 Epoetin David-Epbx 2,000 Units/Ml Vial IV PUSH 02/24/25 17:37 2,000 units ONCE ONE Administration Finasteride 5 mg 02/16/25 09:00 02/24/25 11:46 Finasteride 5 Mg Tablet PO 5 mg QAM DAVID Administration Furosemide 80 mg 02/16/25 09:00 02/24/25 11:46 Furosemide 80 Mg Tablet PO 80 mg BID DAVID Administration Gabapentin 100 mg 02/16/25 09:00 02/24/25 11:45 Gabapentin 100 Mg Capsule PO 100 mg TID DAVID Administration Glucagon 1 mg 02/16/25 08:20 Glucagon For Inj 1 Mg Vial IM PRN PRN Hypoglycemia Protocol Glucose 15 gm 02/16/25 08:20 Glucose Oral Gel 15 Gm Of Glucse In 37.5 Gm Tube PO PRN PRN Hypoglycemia Protocol Heparin Sodium (Porcine) 5,000 units 02/16/25 09:00 02/24/25 11:46 Heparin Sodium 5,000 Units/Ml Vial SUB-Q 5,000 units Q12HR DAVID Administration Dextrose 1,000 mls @ 100 mls/hr 02/16/25 08:20 Dextrose 5% 1,000 Ml IVPB PRN PRN Hypoglycemia Protocol Albumin Human 50 mls @ 999 mls/hr 02/17/25 06:27 Albutein IVPB 03/19/25 06:26 Q10M PRN HYPOTENSION Insulin Aspart 4 units 02/16/25 08:00 02/24/25 12:23 Insulin Aspart (*Bkc) 100 Units/Ml SUB-Q 4 units TIDWM DAVID Administration Insulin Aspart 2 - 5 units 02/16/25 12:00 02/24/25 11:49 Insulin Aspart (*Bkc) 100 Units/Ml SUB-Q Not Given TIDWM DAVID Protocol Insulin Glargine 6 units 02/16/25 18:00 02/23/25 17:38 Insulin Glargine (*Bkc) 100 Units/Ml SUB-Q 6 units QPM DAVID Administration Loratadine 10 mg 02/16/25 09:00 02/24/25 11:45 Loratadine 10 Mg Tablet PO 10 mg DAILY DAVID Administration Loratadine 10 mg 02/16/25 07:03 Loratadine 10 Mg Tablet PO DAILY PRN itching Pentoxifylline 400 mg 02/16/25 18:00 02/23/25 17:36 Pentoxifylline 400 Mg Tabcr PO 400 mg QPM DAVID Administration Sevelamer Carbonate 3.2 gm 02/16/25 08:00 02/24/25 11:46 Sevelamer Carbonate 0.8 Gm Oral Powder Packet PO 3.2 gm TIDWM DAVID Administration Silver Sulfadiazine 1 applic 02/16/25 09:00 02/24/25 11:59 Silver Sulfadiazine 1% Cr 50 Gm Jar (*Bkc) TOPICAL 1 applic QAM DAVID Administration Tamsulosin HCl 0.4 mg 02/16/25 21:00 02/23/25 20:26 Tamsulosin Hcl 0.4 Mg Capsule PO 0.4 mg QHS DAVID Administration Radiology Results: ITS Impressions Cervical Spine CT 02/21/25 20:52 IMPRESSION: No acute fracture or traumatic malalignment in the cervical spine. Moderate neural foraminal narrowing on the left at C4-5 and on the right at C2- 3. Erosive changes at the C3-4 and C4-5 disc spaces, also seen to a lesser extent in multiple facet joints. Mild prevertebral soft tissue thickening, most pronounced at the C5-6 disc level, probably representing inflammatory panus. These changes appear chronic and largely stable, and may be secondary to inflammatory or crystalline arthropathy. Osteomyelitis/discitis considered less likely. Chronic height loss at C3 and C4 and chronic anterior wedge deformity at C5. Sclerosis of the C4 vertebral body probably related to degenerative change/arthropathy, noting that sclerotic metastases could appear similarly. Head CT 02/22/25 15:07 IMPRESSION: No acute intracranial process. 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 Chest X-Ray 02/24/25 06:19 Impression: Probable minimal bibasilar pulmonary edema. Stable mild cardiomegaly with upper quadrant. Labs Labs: Laboratory Tests 02/23/25 05:25 02/23/25 05:25
--- NOTE | 2025-02-24 11:05 | PCOTNOTE ---
Patient out od the room at this time. Patient is in dialysis.
--- NOTE | 2025-02-24 11:42 | P.PNIM_ITS ---
Progress Note: A&P Assessment and Plan (1) IDDM (insulin dependent diabetes mellitus): Status: Chronic (2) Pressure ulcer of left heel, unstageable: Code(s): L89.620 - Pressure ulcer of left heel, unstageable Status: Acute (3) Pneumonia: Qualifiers: Laterality: unspecified laterality Lung location: unspecified part of lung Pneumonia type: due to unspecified organism Qualified Code(s): J18.9 - Pneumonia, unspecified organism Code(s): J18.9 - Pneumonia, unspecified organism Status: Acute (4) Seizure disorder: Code(s): G40.909 - Epilepsy, unspecified, not intractable, without status epilepticus Status: Acute (5) Acute hypoxic respiratory failure: Code(s): J96.01 - Acute respiratory failure with hypoxia Status: Acute (6) Type 2 diabetes mellitus, with long-term current use of insulin: Qualifiers: Diabetes mellitus complication status: with neurologic complications Diabetes mellitus complication detail: with polyneuropathy Qualified Code(s): E11.42 - Type 2 diabetes mellitus with diabetic polyneuropathy; Z79.4 - intermediate project manager (current) use of insulin Code(s): E11.9 - Type 2 diabetes mellitus without complications; Z79.4 - intermediate project manager (current) use of insulin Status: Acute (7) CAD in [place] artery: Code(s): I25.10 - Atherosclerotic heart disease of [place] coronary artery without angina pectoris Status: Acute (8) End-stage renal disease on hemodialysis: Code(s): N18.6 - End stage renal disease; Z99.2 - Dependence on renal dialysis Status: Acute (9) Weakness: Code(s): R53.1 - Weakness Status: Acute (10) Elevated troponin: Code(s): R79.89 - Other specified abnormal findings of blood chemistry Status: Acute (11) Pulmonary edema: Qualifiers: Chronicity: acute Qualified Code(s): J81.0 - Acute pulmonary edema Code(s): J81.1 - Chronic pulmonary edema Status: Acute (12) Obstructive sleep apnea: Code(s): G47.33 - Obstructive sleep apnea (adult) (pediatric) Status: Acute Plan 79-year-old male with a past medical history of end-stage renal disease on dialysis Sunday, coronary artery disease status post CABG 2013, cardiac pacemaker due to 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 The patient reports that in the late afternoon he felt as if he could not move any of his extremities. The group home staff at also reported the patient had had some blurred vision patient did not mention mention vision changes at the time of my evaluation. On the scene the patient was found to be hypoxic. General weakness and blurred vision Patient presented weakness and stated he could not move any of his extremities for about [address] head shows no acute intracranial issues Possible due to hypoxemia needs to rule out neuro issues, consult neurologist for evaluation treatment Appreciate neurology's consultation, Neurology considers possible restriction on the shoulder pain Suspect cervical disc disease. Cervical CT from December 2024 showed chronic compression fracture of C4 and C5 along with multilevel face it joint disease and uncovertebral joint osteoarthritis changes. Has a pacemaker hence cannot get an MRI. CT cervical spine with no acute fracture. Moderate neuroforaminal narrowing on left at C4-5 and on the right at C2-3. Erosive changes at C3-C4 and C4-C5 disc stasis these appear chronic enlarged stable. Bilateral shoulder x-ray 0 11/15 were unremarkable. He may get MRI as an outpatient basis in and pacemaker compatible MRI center. Consulted Neurosurgery if CT myelogram would be feasible Await their recommendations. Acute respiratory failure with hypoxemia Possible due to CHF exacerbation pulmonary edema and pneumonia Patient received Lasix in the ED, Consult produce shipper for dialysis Continue O2 therapy to keep pulse ox above 90 Patient is on 3 L oxygen via nasal cannular # status post pacemaker implantation for sinus node dysfunction Community-acquired pneumonia X-ray suggest bilateral basal pneumonia Patient was placed on ceftriaxone and doxy IV Follow-up procalcitonin level End-stage renal disease on hemodialysis Overloaded upon arrival Consult produce shipper for dialysis Patient underwent hemodialysis yesterday, 3.4 L removed Continue inpatient hemodialysis Chronic anemia No obvious bleeding Resulting from chronic renal failure Management per produce shipper Type 2 diabetes Patient is on Lantus 6 units, lispro 5 units a.c. and sliding scale Controlled # disposition: PT OT to see back to [facility] when stable. Subjective Date/time seen: 02/24/25 11:42 Interval history: No overnight events. States he is feeling better. States he can not get his arm all the way to nose now. Working with therapy. Review of Systems Review of Systems: All systems reviewed & are unremarkable except as noted in HPI and below Exam Narrative: GENERAL: Pleasant, in no acute distress. Well-nourished. - EYES: EOMI. Anicteric. - HENT: Moist mucous membranes. - LUNGS: Coarse breath sound bilaterall y - CARDIOVASCULAR: Regular rate and rhyth m. No murmur. No JVD. - ABDOMEN: Soft, non-tender and non-dist ended. No palpable masses. - EXTREMITIES: No edema. Peripheral puls es 2+. Non-tender. - NEUROLOGIC: No focal neurological defi cits. CN II-XII grossly intact, upper extremities are weak bilaterally - PSYCHIATRIC: Awake, Alert and oriented x 3. Appropriate mood and affect. - SKIN: No rashes or lesions. Warm. - LYMPH: No cervical lymphadenopathy. Objective Data Vital Signs Vital Signs: Vital Signs - 24 hr 02/23/25 14:00 02/23/25 17:41 02/23/25 20:00 Temperature 97.0 F L Pulse Rate 65 48 L Respiratory Rate 14 Blood Pressure 134/92 H Pulse Oximetry 99 99 Oxygen Delivery Nasal Cannula Oxygen Flow Rate 1.5 02/23/25 22:00 02/24/25 06:00 02/24/25 07:30 Temperature 97.0 F L 97.0 F L 98.1 F Pulse Rate 58 L 66 68 Respiratory Rate 18 16 16 Blood Pressure 116/40 L 130/54 L 139/71 Pulse Oximetry 99 95 100 Oxygen Delivery Oxygen Flow Rate 02/24/25 07:30 02/24/25 07:39 02/24/25 07:45 Temperature Pulse Rate 69 72 Respiratory Rate Blood Pressure 133/78 147/77 H Pulse Oximetry Oxygen Delivery Oxygen Flow Rate 2 02/24/25 08:00 02/24/25 08:15 02/24/25 08:30 Temperature Pulse Rate 73 68 65 Respiratory Rate Blood Pressure 132/70 112/63 118/68 Pulse Oximetry Oxygen Delivery Oxygen Flow Rate 02/24/25 08:45 02/24/25 09:00 02/24/25 09:15 Temperature Pulse Rate 64 69 63 Respiratory Rate Blood Pressure 122/62 126/62 119/60 Pulse Oximetry Oxygen Delivery Oxygen Flow Rate 02/24/25 09:30 02/24/25 09:45 02/24/25 10:00 Temperature Pulse Rate 66 69 73 Respiratory Rate Blood Pressure 118/64 112/60 102/64 Pulse Oximetry Oxygen Delivery Oxygen Flow Rate 02/24/25 10:15 02/24/25 10:30 02/24/25 10:45 Temperature Pulse Rate 70 67 79 Respiratory Rate Blood Pressure 98/56 L 105/60 118/66 Pulse Oximetry Oxygen Delivery Oxygen Flow Rate 02/24/25 11:00 02/24/25 11:22 02/24/25 11:23 Temperature 98.2 F Pulse Rate 75 72 74 Respiratory Rate 16 Blood Pressure 117/58 L 130/69 114/66 Pulse Oximetry 100 Oxygen Delivery Oxygen Flow Rate Intake/Output Intake/Output: Intake & Output 02/21/25 02/22/25 02/23/25 02/24/25 23:59 23:59 23:59 23:59 Intake Total 1020 1070 1388 400 Output Total 4000 0 0 3000 Balance -2980 1070 1388 -2600 Meds/Results Medications: Active Medications Generic Name Dose Route Start Last Admin Trade Name Freq PRN Reason Stop Dose Admin Acetaminophen 650 mg 02/15/25 23:52 02/23/25 20:25 Acetaminophen 325 Mg Tablet PO 650 mg Q4H PRN Administration Mild Pain (1-3) or Fever Amlodipine Besylate 10 mg 02/16/25 09:00 02/23/25 09:44 Amlodipine Besylate 10 Mg Tablet PO 10 mg DAILY DAVID Administration Aspirin 81 mg 02/16/25 09:00 02/23/25 09:44 Aspirin 81 Mg Enteric Tablet PO 81 mg DAILY DAVID Administration Atorvastatin Calcium 20 mg 02/16/25 21:00 02/23/25 20:26 Atorvastatin 20 Mg Tablet PO 20 mg HS DAVID Administration Bisacodyl 10 mg 02/16/25 07:03 Bisacodyl 10 Mg Suppository RECTAL DAILY PRN constipation Carvedilol 25 mg 02/16/25 08:00 02/23/25 17:41 Carvedilol 25 Mg Tablet PO Not Given BIDWM DAVID Cinacalcet 90 mg 02/16/25 09:00 02/23/25 09:44 Cinacalcet 30 Mg Tablet PO 03/18/25 08:59 90 mg DAILY DAVID Administration Dextrose 12.5 gm 02/16/25 08:20 Dextrose 50% 25 Gm/50 Ml Syringe IV PUSH PRN PRN Hypoglycemia Protocol Epoetin David-epbx 8,000 units 02/24/25 17:36 02/24/25 08:36 Epoetin David-Epbx 4,000 Units/Ml Vial IV PUSH 02/24/25 17:37 8,000 units ONCE ONE Administration Epoetin David-epbx 2,000 units 02/24/25 17:36 02/24/25 08:37 Epoetin David-Epbx 2,000 Units/Ml Vial IV PUSH 02/24/25 17:37 2,000 units ONCE ONE Administration Finasteride 5 mg 02/16/25 09:00 02/23/25 09:44 Finasteride 5 Mg Tablet PO 5 mg QAM DAVID Administration Furosemide 80 mg 02/16/25 09:00 02/23/25 17:36 Furosemide 80 Mg Tablet PO 80 mg BID DAVID Administration Gabapentin 100 mg 02/16/25 09:00 02/23/25 17:36 Gabapentin 100 Mg Capsule PO 100 mg TID DAVID Administration Glucagon 1 mg 02/16/25 08:20 Glucagon For Inj 1 Mg Vial IM PRN PRN Hypoglycemia Protocol Glucose 15 gm 02/16/25 08:20 Glucose Oral Gel 15 Gm Of Glucse In 37.5 Gm Tube PO PRN PRN Hypoglycemia Protocol Heparin Sodium (Porcine) 5,000 units 02/16/25 09:00 02/23/25 20:26 Heparin Sodium 5,000 Units/Ml Vial SUB-Q 5,000 units Q12HR DAVID Administration Dextrose 1,000 mls @ 100 mls/hr 02/16/25 08:20 Dextrose 5% 1,000 Ml IVPB PRN PRN Hypoglycemia Protocol Albumin Human 50 mls @ 999 mls/hr 02/17/25 06:27 Albutein IVPB 03/19/25 06:26 Q10M PRN HYPOTENSION Insulin Aspart 4 units 02/16/25 08:00 02/24/25 10:55 Insulin Aspart (*Bkc) 100 Units/Ml SUB-Q Not Given TIDWM DAVID Insulin Aspart 2 - 5 units 02/16/25 12:00 02/24/25 10:55 Insulin Aspart (*Bkc) 100 Units/Ml SUB-Q Not Given TIDWM [facility] Protocol Insulin Glargine 6 units 02/16/25 18:00 02/23/25 17:38 Insulin Glargine (*Bkc) 100 Units/Ml SUB-Q 6 units QPM DAVID Administration Loratadine 10 mg 02/16/25 09:00 02/23/25 09:44 Loratadine 10 Mg Tablet PO 10 mg DAILY DAVID Administration Loratadine 10 mg 02/16/25 07:03 Loratadine 10 Mg Tablet PO DAILY PRN itching Pentoxifylline 400 mg 02/16/25 18:00 02/23/25 17:36 Pentoxifylline 400 Mg Tabcr PO 400 mg QPM DAVID Administration Sevelamer Carbonate 3.2 gm 02/16/25 08:00 02/23/25 17:34 Sevelamer Carbonate 0.8 Gm Oral Powder Packet PO 3.2 gm TIDWM DAVID Administration Silver Sulfadiazine 1 applic 02/16/25 09:00 02/23/25 09:48 Silver Sulfadiazine 1% Cr 50 Gm Jar (*Bkc) TOPICAL 1 applic QAM DAVID Administration Tamsulosin HCl 0.4 mg 02/16/25 21:00 02/23/25 20:26 Tamsulosin Hcl 0.4 Mg Capsule PO 0.4 mg QHS DAVID Administration Radiology Results: ITS Impressions Cervical Spine CT 02/21/25 20:52 IMPRESSION: No acute fracture or traumatic malalignment in the cervical spine. Moderate neural foraminal narrowing on the left at C4-5 and on the right at C2- 3. Erosive changes at the C3-4 and C4-5 disc spaces, also seen to a lesser extent in multiple facet joints. Mild prevertebral soft tissue thickening, most pronounced at the C5-6 disc level, probably representing inflammatory panus. T hese changes appear chronic and largely stable, and may be secondary to inflammatory or crystalline arthropathy. Osteomyelitis/discitis considered less likely. Chronic height loss at C3 and C4 and chronic anterior wedge deformity at C5. Sclerosis of the C4 vertebral body probably related to degenerative change/arthropathy, noting that sclerotic metastases could appear similarly. Head CT 02/22/25 15:07 IMPRESSION: No acute intracranial process. 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 Chest X-Ray 02/24/25 06:19 Impression: Probable minimal bibasilar pulmonary edema. Stable mild cardiomegaly with upper quadrant. Labs Labs: Laboratory Results - last 24 hr 02/23/25 02/23/25 16:29 19:55 POC Capillary Glucose 120 H 159 H
[2025-02-24] MEDS: GABAPENTIN 100 MG CAPSULE PO ×3 (11:45→18:28)
[2025-02-24] MEDS: LORATADINE 10 MG TABLET PO (11:45)
[2025-02-24] MEDS: CINACALCET 30 MG TABLET 90 MG PO (11:45)
[2025-02-24] MEDS: HEPARIN SODIUM 5,000 UNITS/ML VIAL 5000 UNITS SUB-Q ×2 (11:46→20:10)
[2025-02-24] MEDS: FUROSEMIDE 80 MG TABLET PO ×2 (11:46→17:20)
[2025-02-24] MEDS: ASPIRIN 81 MG ENTERIC TABLET PO (11:46)
[2025-02-24] MEDS: FINASTERIDE 5 MG TABLET PO (11:46)
[2025-02-24] MEDS: amLODIPine BESYLATE 10 MG TABLET PO (11:46)
[2025-02-24] MEDS: carvediloL 25 MG TABLET PO ×2 (11:46→20:10)
[2025-02-24] MEDS: SEVELAMER CARBONATE 0.8 GM ORAL POWDER PACKET 3.2 GM PO ×2 (11:46→17:20)
[2025-02-24 11:55] LABS: Glucose Point of Care 105 mg/dl (65-105)
[2025-02-24] MEDS: ACETAMINOPHEN 325 MG TABLET 650 MG PO ×2 (11:56→17:32)
[2025-02-24] MEDS: SILVER SULFADIAZINE 1% CR 50 GM JAR (*BKC) 1 APPLIC TOPICAL (11:59)
[2025-02-24] MEDS: INSULIN ASPART (*BKC) 100 UNITS/ML SUB-Q ×2 (12:23→17:37)
[2025-02-24 17:18] LABS: Glucose Point of Care 159 mg/dl (65-105)
[2025-02-24] MEDS: PENTOXIFYLLINE 400 MG TABCR PO (17:22)
[2025-02-24] MEDS: INSULIN GLARGINE (*BKC) 100 UNITS/ML 6 UNITS SUB-Q (17:38)
[2025-02-24] MEDS: ATORVASTATIN 20 MG TABLET PO (20:09)
[2025-02-24 20:11] LABS: Glucose Point of Care 143 mg/dl (65-105)
[2025-02-24] MEDS: TAMSULOSIN HCL 0.4 MG CAPSULE PO (20:12)
[2025-02-25] VITALS (7 sets, daily range): BP systolic 120–128; BP diastolic 50–53; PULSE 60–71; RESP 16–18; TEMP 36.2–36.5; O2SAT 97–99
[2025-02-25] MEDS: ACETAMINOPHEN 325 MG TABLET 650 MG PO ×3 (02:48→20:05)
[2025-02-25 08:48] LABS: Glucose Point of Care 143 mg/dl (65-105)
[2025-02-25] MEDS: FINASTERIDE 5 MG TABLET PO (09:11)
[2025-02-25] MEDS: SEVELAMER CARBONATE 0.8 GM ORAL POWDER PACKET 3.2 GM PO ×3 (09:11→17:33)
[2025-02-25] MEDS: GABAPENTIN 100 MG CAPSULE PO ×3 (09:11→17:33)
[2025-02-25] MEDS: ASPIRIN 81 MG ENTERIC TABLET PO (09:11)
[2025-02-25] MEDS: CINACALCET 30 MG TABLET 90 MG PO (09:11)
[2025-02-25] MEDS: LORATADINE 10 MG TABLET PO (09:11)
[2025-02-25] MEDS: amLODIPine BESYLATE 10 MG TABLET PO (09:11)
[2025-02-25] MEDS: FUROSEMIDE 80 MG TABLET PO ×2 (09:11→17:34)
[2025-02-25] MEDS: SILVER SULFADIAZINE 1% CR 50 GM JAR (*BKC) 1 APPLIC TOPICAL (09:13)
[2025-02-25] MEDS: carvediloL 25 MG TABLET PO ×2 (09:15→20:06)
[2025-02-25] MEDS: INSULIN ASPART (*BKC) 100 UNITS/ML SUB-Q ×3 (10:17→17:21)
--- NOTE | 2025-02-25 10:25 | PCNFU ---
Nutrition Follow-Up Complete: Unintentional weight shifts related to hemodialysis as evidenced by weight changes 9%/1 month goal: Adequate PO intake at least 75% meals and supplements Patient is progressing towards goal. We will continue current goal. Pt current nutrition is Renal/DBCC with Nepro BID. Last recorded weight is 80.8 kg, down from 80.6 kg on admit. Bowel Motility: +BM 02/25 Labs Reviewed: no new labs to report. Meds Noted: Lasix, Lantus, NovoLog. Skin: WNL Additional Notes: Patient remains on a Renal/DBCC diet. Oral Intake improving, feeding self. Supplements of Nepro shakes providing an additional 420 kcal and 19 gm protein. Dialysis 5/. Monitoring intakes, weights, labs, supplement tolerance, plan of care Follow up in 5 days
[2025-02-25 10:36] LABS: Basophils Absolute Auto 0.1 K/mm3 (0.0-0.1); Basophils Percent Auto 1.5 % (0.2-1.2); Eosinophils Absolute Auto 0.1 K/mm3 (0-0.3); Eosinophils Percent Auto 3.5 % (0-4.4); Hemoglobin 8.7 g/dL (14.0-18.0); Immature Granulocyte Absolute 0.02 K/mm3 (0.00-0.031); Immature Granulocyte Percent A 0.5 % (0-0.5); Lymphocytes Percent Auto 17.5 % (18.3-44.2); Mean Corpuscular Hemoglobin 27.2 pg (26-34); Mean Corpuscular Volume 93.8 fl (80-100); Mean Platelet Volume 10.6 fl (7.4-10.4); Monocytes Absolute Auto 0.5 K/mm3 (0.1-0.6); Monocytes Percent Auto 11.5 % (2.6-8.5); Neutrophils Absolute Auto 2.6 K/mm3 (1.3-6.7); Neutrophils Percent Auto 65.5 % (45.5-73.1); Platelet Count Result 210 k/mm3 (150-375); Red Cell Distribution Width 19.4 % (11.5-14.5)
[2025-02-25 10:46] LABS: Alanine Aminotransferase 13 U/L (6-50); Albumin Level 3.4 g/dL (3.5-5.1); Alkaline Phosphatase 49 U/L (38-126); Anion Gap 4 mmol/L (4-12); Aspartate Amino Transferase 13 U/L (17-59); Bilirubin,Total 0.4 mg/dL (0.2-1.3); Blood Urea Nitrogen 31 mg/dL (9-20); Calcium 11.1 mg/dL (8.4-10.2); Carbon Dioxide 32 mmol/L (22-30); Chloride 96 mmol/L (98-107); Estimated CRCL calculation 11 ml/min; Estimated Glomerular Filt Rate 11; Glucose 148 mg/dL (65-110); Magnesium 2.2 mg/dL (1.6-2.3); Sodium 132 mmol/L (137-145)
[2025-02-25 11:29] LABS: Hypochromasia 1+; Platelet Estimate Adequate (Adequate); Schistocytes None Seen
[2025-02-25 11:30] LABS: Anisocytosis 1+; Basophilic Stippling 1+
[2025-02-25 12:20] LABS: Glucose Point of Care 114 mg/dl (65-105)
[2025-02-25] MEDS: HEPARIN SODIUM 5,000 UNITS/ML VIAL 5000 UNITS SUB-Q ×2 (12:59→20:08)
--- NOTE | 2025-02-25 13:00 | WPDNEUROSGCN ---
Assessment and Plan Assessment and plan (1) Upper extremity weakness: Code(s): R29.898 - Other symptoms and signs involving the musculoskeletal system Status: Acute Plan The patient is a 79-year-old male with probable cervical radiculopathy and intrinsic bilateral shoulder pathology. No signs of cervical myelopathy or central cord. He has a medical history significant for ESRD on dialysis, CAD status post CABG, pacemaker placed October 2024, PAD, CARITO, COPD, T2 DM, decubitus ulcer right heel unstageable. Patient would be a poor surgical candidate given age, medical comorbidities, and concomitant contributing conditions. -mutually agreed not to pursue CT myelogram at this time -Will plan for outpatient follow-up and possible cervical MRI at pacemaker compatible facility -Continue to work with PT/OT -Consider orthopedics consult for shoulders, can be outpatient Consult date: 02/25/25 Time Seen: 12:20 HPI: Sam Morrissey is a very pleasant 79 year old male who presented to the ER via EMS on February 16, 2025 for generalized weakness and blurred vision. He has a medical history significant for ESRD on dialysis, CAD status post CABG, pacemaker placed October 2024, PAD, CARITO, COPD, T2 DM, decubitus ulcer right heel unstageable. He reports a 4-5 month history of bilateral shoulder weakness and pain. he has trouble lifting his arms at the shoulders bilaterally. He states that he is able to move at the elbows, wrists, and hands / fingers normally. He does have some pain that radiates from the shoulders up to the neck but denies any pain that radiates down the upper extremities. He has not had any upper extremity sensory changes but does endorse neuropathy in his feet. He has not had any difficulty with fine motor tasks like picking up coins or buttoning buttons. He specifically denies any episodes where he was unable to move his extremities at all, and instead describes a generalized weakness and fatigue that made his limbs feel tired and heavy. Currently, the patient is resting comfortably in the chair eating lunch. He does endorse some bilateral shoulder pain, but states that this is reasonably well controlled. He does feel like he has a little bit more movement in the arms than what he had previously, but is still unable to elevate his arms at the shoulders enough to touch the top of his head. [facility] Past Medical History Medical History (Updated 02/21/25 @ 12:08 by Martina Booth MD) Bilateral shoulder pain Diabetic polyneuropathy Diabetes Coronary artery disease Chronic obstructive pulmonary disease Diabetic peripheral neuropathy Anemia Atrial fibrillation Chronic neck and back pain Insomnia History of nephrolithiasis Sinus pause (~09/2024) Obstructive sleep apnea Intolerant to CPAP Insulin dependent type 2 diabetes mellitus (~2009) Benign prostatic hyperplasia Peripheral vascular disease (~03/2023) Internal hemorrhoid, bleeding End-stage renal disease on hemodialysis DVT dialysis Sunday History of colon polyps Environmental allergies Vitamin D deficiency Dyslipidemia Essential (primary) hypertension Surgical History Surgical History History of cardiac pacemaker (~10/2024) Medtr[employer] pacemaker placed due to symptomatic sinus pauses causing syncope performed at [facility] Status post cataract extraction of both eyes with insertion of intraocular lens History of colonoscopy with polypectomy History of hemorrhoidectomy (~01/12/24) Anorectal evaluation under anesthesia and excisional hemorrhoidectomy x3 12/14/23 SAW S/P peripheral artery angioplasty (~03/2023) status post balloon angioplasty of bilateral common and external iliac arteries status post left iliofemoral endarterectomy Arteriovenous fistula of left upper extremity (~2017) History of appendectomy (~1962) History of coronary artery bypass graft (~2013) Family History Family History Mother Diabetes mellitus Acute myocardial infarction Family history of congestive heart failure Father Hypertension Social History Social History Social History: The patient is . He and his brother live together prior to his recent hospitalization and placement in to [facility]. He is retired after 26 years of serving in the [employer]. He has 4 children. He used to smoke 1.5-2 packs of cigarettes per day but quit smoking in approximately 2009. He will on a rare occasion drink an alcoholic beverage maybe 2 to 3 times a year. He denies illicit substance use. Surrogate medical decision maker: Wilian Morrissey, sibling. Code status: Full code. Caffeine- daily Smoking packs per day: 1.5 Smoking cigarettes per day: 30.0 Years smoked: 44 Smoking pack-years: 66.00 Smoking status: Former smoker Second hand tobacco smoke exposure: No Alcohol intake: current Alcohol use details: Maybe 2-3 per year Substance use: unknown Substance use type: unknown Do You Feel Safe in your Home?: Yes Lack of Transportation: No Lack of Food: Never True Current Housing: I Have Housing Concerned About Future Housing: No Difficulty Paying Gas/Electric Bills: No Difficulty Paying for Meds: No Currently Unemployed: No Education: Associate Degree Difficulty w/ Childcare or Family Care: No Living arrangements: with family Occupation/Education: retired Additional occupation/education comments: Retired from the [employer]. Spiritual care concerns: No Agree to blood products: Yes Meds Home Medications and Allergies Home Medications ?Medication ?Instructions ?Recorded ?Confirmed ?Type aspirin 81 mg tablet,delayed 81 mg PO DAILY 10/31/21 02/16/25 History release carvedilol 25 mg tablet 25 mg PO BID 10/31/21 02/16/25 History insulin lispro 100 unit/mL 4 unit subcut .TIDAC 10/31/21 02/16/25 History subcutaneous pen loratadine 10 mg tablet (Claritin) 10 mg PO DAILY 10/31/21 02/16/25 History insulin glargine 100 unit/mL (3 6 unit subcut QPM 11/07/23 02/16/25 History mL) subcutaneous pen (Lantus Solostar U-100 Insulin) cinacalcet 90 mg PO DAILY 12/12/23 02/16/25 History atorvastatin 20 mg tablet 20 mg PO HS 12/21/24 02/16/25 History finasteride 5 mg tablet (Proscar) 5 mg PO QAM #30 tabs 12/23/24 02/16/25 Rx furosemide 80 mg tablet 80 mg PO BID #60 tabs 12/23/24 02/16/25 Rx sevelamer carbonate 0.8 gram oral 3.2 g PO TIDWM 30 days #60 ea 12/23/24 02/16/25 Rx powder packet tamsulosin 0.4 mg capsule 0.4 mg PO QHS #30 caps 12/23/24 02/16/25 Rx acetaminophen 325 mg tablet 650 mg (2 x 325 mg) PO Q4H PRN 01/10/25 02/16/25 Rx Mild Pain (1-3) Or Fever #60 tabs pentoxifylline 400 mg 400 mg PO QPM 01/29/25 02/16/25 History tablet,extended release acetaminophen 300 mg-codeine 30 mg 1 tablet PO Q6H PRN pain, severe 02/16/25 02/16/25 History tablet amlodipine 10 mg tablet 10 mg PO DAILY 02/16/25 02/16/25 History bisacodyl 10 mg rectal suppository 10 mg RECTAL DAILY PRN constipation 02/16/25 02/16/25 History (Laxative (bisacodyl)) cyclobenzaprine 10 mg tablet 10 mg PO TID 02/16/25 02/16/25 History gabapentin 100 mg capsule 100 mg PO TID 02/16/25 02/16/25 History liraglutide 0.6 mg/0.1 mL (18 mg/3 0.6 mg subcut DAILY 02/16/25 02/16/25 History mL) subcutaneous pen injector liraglutide 0.6 mg/0.1 mL (18 mg/3 1.2 mg subcut DAILY 02/16/25 02/16/25 History mL) subcutaneous pen injector loratadine 10 mg capsule (Allergy 10 mg PO DAILY PRN itching 02/16/25 02/16/25 History Relief (loratadine)) magnesium citrate (Citroma oral 296 ml PO .AM PRN constipation 02/16/25 02/16/25 History solution) magnesium hydroxide 400 mg/5 mL 30 ml PO HS PRN constipation 02/16/25 02/16/25 History oral suspension (Milk of Magnesia) silver sulfadiazine 1 % topical 1 applic topical QAM 02/16/25 02/16/25 History cream (Silvadene) sodium phosphates 19 gram-7 118 ml RECTAL DAILY PRN 02/16/25 02/16/25 History gram/118 mL enema (Fleet Enema) constipation vitamin B complex 1 cap PO DAILY 02/16/25 02/16/25 History Allergies Allergy/AdvReac Type Severity Reaction Status Date / Time No Known Allergies Allergy Verified 02/16/25 05:50 Vital Signs Vital Signs - 24 hr 02/24/25 14:00 02/24/25 20:00 02/24/25 20:14 Temperature 97.1 F L 97.9 F Pulse Rate 65 70 Respiratory Rate 16 18 Blood Pressure 110/58 L 112/48 L Pulse Oximetry 100 100 100 Oxygen Delivery Nasal Cannula Oxygen Flow Rate 1.5 02/25/25 05:58 02/25/25 08:00 02/25/25 09:15 Temperature 97.7 F Pulse Rate 71 69 Respiratory Rate 16 Blood Pressure 125/52 L Pulse Oximetry 97 97 Oxygen Delivery Nasal Cannula Oxygen Flow Rate 1.5 Exam Narrative: Patient appears comfortable. A&O x4. Speech within normal limits. Cranial nerves intact. Sensation intact to light touch throughout upper extremities. Right deltoid 3-/5, biceps 4+/5. Otherwise right upper extremity 5/5. Left deltoid 2/5, biceps 4-/ 5, otherwise 5/5. Pain and weakness with supraspinatus, subscapularis, and infraspinatus testing, worse on left than right. Pain with passive shoulder range of motion bilaterally. Tenderness to palpation in the bilateral deltoid/rotator cuff insertion. Some tenderness over right subacromial bursa. No cervical spine or paraspinal tenderness. Some pain with active cervical range of motion, particularly lateral bending. Negative Gayle's bilaterally. Sensation light touch intact. Results Labs 02/25/25 10:29 02/25/25 10:29 Labs: Short CBC 02/25/25 Range/Units 10:29 WBC 4.0 L (4.5-10.0) K/mm3 Hgb 8.7 L (14.0-18.0) g/dL Hct 30.0 L (42.0-52.0) % Plt Count 210 (150-375) k/mm3 BMP 02/25/25 10:29 Sodium 132 L Potassium 4.0 Chloride 96 L Carbon Dioxide 32 H BUN 31 H Creatinine 4.99 H Glucose 148 H Calcium 11.1 H Liver Function 02/25/25 Range/Units 10:29 Total Bilirubin 0.4 (0.2-1.3) mg/dL AST 13 L (17-59) U/L ALT 13 (6-50) U/L Alkaline Phosphatase 49 (38-126) U/L Albumin 3.4 L (3.5-5.1) g/dL Imaging My impression: CT scan cervical spine demonstrates wedging and osseous erosions the C3, C4, and C5 vertebral bodies. Erosion is most concentrated round C4-5 disc space. moderate neural foraminal stenosis at C2-C3 on the right and at C4-C5 on the left. mild neural foraminal stenosis at remaining levels. No high-grade spinal canal stenosis.
--- NOTE | 2025-02-25 13:18 | P.PNIM_ITS ---
Progress Note: A&P Assessment and Plan (1) Weakness: Code(s): R53.1 - Weakness Status: Acute Assessment and Plan: * PT/OT. * Patient presented weakness and stated he could not move any of his extremities for about 3 hours. * CT head shows no acute intracranial issues * Possible due to hypoxemia needs to rule out neuro issues, consult neurologist for evaluation treatment * Appreciate neurology's consultation, Neurology considers possible restriction on the shoulder pain * Suspect cervical disc disease. Cervical CT from December 2024 showed chronic compression fracture of C4 and C5 along with multilevel face it joint disease and uncovertebral joint osteoarthritis changes. * Has a pacemaker hence cannot get an MRI. * CT cervical spine with no acute fracture. Moderate neuroforaminal narrowing on left at C4-5 and on the right at C2-3. Erosive changes at C3-C4 and C4-C5 disc stasis these appear chronic enlarged stable. * Bilateral shoulder x-ray 0 11/15 were unremarkable. * He may get MRI as an outpatient basis in and pacemaker compatible MRI center. * Consulted Neurosurgery. They agreed not to pursue CT myelogram at this time. (2) IDDM (insulin dependent diabetes mellitus): Status: Chronic Assessment and Plan: * SSI, accu checks, hypoglycemic protocol, Aspart 4 units with meals, and Glargine 6 units at bedtime. (3) Pressure ulcer of left heel, unstageable: Code(s): L89.620 - Pressure ulcer of left heel, unstageable Status: Acute Assessment and Plan: * Elevate off of bed or surface. (4) Pneumonia: Qualifiers: Laterality: unspecified laterality Lung location: unspecified part of lung Pneumonia type: due to unspecified organism Qualified Code(s): J18.9 - Pneumonia, unspecified organism Code(s): J18.9 - Pneumonia, unspecified organism Status: Acute Assessment and Plan: * X-ray suggest bilateral basal pneumonia * Patient was placed on ceftriaxone and doxy IV * completed antibiotics. (5) Acute hypoxic respiratory failure: Code(s): J96.01 - Acute respiratory failure with hypoxia Status: Acute Assessment and Plan: * Possible due to CHF exacerbation pulmonary edema and pneumonia. * Patient received Lasix in the ED. * Consult primer supervisor for dialysis. * Continue O2 therapy to keep pulse ox above 90. * Patient is on 1.5 L oxygen via nasal cannula. 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 (7) End-stage renal disease on hemodialysis: Code(s): N18.6 - End stage renal disease; Z99.2 - Dependence on renal dialysis Status: Acute Assessment and Plan: * HD T//Sun (8) Pulmonary edema: Qualifiers: Chronicity: acute Qualified Code(s): J81.0 - Acute pulmonary edema Code(s): J81.1 - Chronic pulmonary edema Status: Acute Assessment and Plan: * Furosemide 80 mg PO BID. (9) Obstructive sleep apnea: Code(s): G47.33 - Obstructive sleep apnea (adult) (pediatric) Status: Acute Assessment and Plan: * Patient does not tolerate CPAP and will be placed on oxygen as needed for nocturnal hypoxia. Plan 79-year-old male with a past medical history of end-stage renal disease on dialysis Sunday, coronary artery disease status post CABG 2013, cardiac pacemaker due to sinus pauses October 2024, peripheral artery status post angioplasty and endarterectomy bilateral lower extremities, obstructive sleep apnea intolerant to CPAP, COPD, insulin-dependent diabetes mellitus, unstageable decubitus ulcer right heel with eschar among other comorbidities who presented to the ER via EMS from care home facility due to weakness and blurred vision. The patient reports that in the late afternoon he felt as if he could not move any of his extremities. The [facility] staff at also reported the patient had had some blurred vision patient did not mention mention vision changes at the time of my evaluation. On the scene the patient was found to be hypoxic. # status post pacemaker implantation for sinus node dysfunction Subjective Date/time seen: 02/25/25 13:18 Interval history: Patient sitting up in chair. Patient reports pain in bilateral shoulders and right heel that is a 6 , frequent, and aching. Patient denies chest pain, palpitations, headache, dizziness, nausea, or vomiting. Review of Systems Review of Systems: All systems reviewed & are unremarkable except as noted in HPI and below Exam Const: General: no acute distress and uncomfortable Resp: Effort & Inspection: normal respiratory effort Auscultation: diminished lung sounds Cardio: Rate: regular rate Rhythm: regular rhythm GI: GI Palp: Yes Soft to palpation Auscultation: normal bowel sounds Skin: Other: Pressure ulcer to heel with dry eschar in the center. Neuro: Speech: normal speech Extrem: General: no pedal edema Psych: Mental Status: mental status grossly normal Affect: normal affect Objective Data Vital Signs Vital Signs: Vital Signs - 24 hr 02/24/25 14:00 02/24/25 20:00 02/24/25 20:14 Temperature 97.1 F L 97.9 F Pulse Rate 65 70 Respiratory Rate 16 18 Blood Pressure 110/58 L 112/48 L Pulse Oximetry 100 100 100 Oxygen Delivery Nasal Cannula Oxygen Flow Rate 1.5 02/25/25 05:58 02/25/25 08:00 02/25/25 09:15 Temperature 97.7 F Pulse Rate 71 69 Respiratory Rate 16 Blood Pressure 125/52 L Pulse Oximetry 97 97 Oxygen Delivery Nasal Cannula Oxygen Flow Rate 1.5 Intake/Output Intake/Output: Intake & Output 02/22/25 02/23/25 02/24/25 02/25/25 23:59 23:59 23:59 23:59 Intake Total 1070 1388 1230 240 Output Total 0 0 3000 0 Balance 1070 1388 -1770 240 Meds/Results Medications: Active Medications Generic Name Dose Route Start Last Admin Trade Name Freq PRN Reason Stop Dose Admin Acetaminophen 650 mg 02/15/25 23:52 02/25/25 13:03 Acetaminophen 325 Mg Tablet PO 650 mg Q4H PRN Administration Mild Pain (1-3) or Fever Amlodipine Besylate 10 mg 02/16/25 09:00 02/25/25 09:11 Amlodipine Besylate 10 Mg Tablet PO 10 mg DAILY DAVID Administration Aspirin 81 mg 02/16/25 09:00 02/25/25 09:11 Aspirin 81 Mg Enteric Tablet PO 81 mg DAILY DAVID Administration Atorvastatin Calcium 20 mg 02/16/25 21:00 02/24/25 20:09 Atorvastatin 20 Mg Tablet PO 20 mg HS DAVID Administration Bisacodyl 10 mg 02/16/25 07:03 Bisacodyl 10 Mg Suppository RECTAL DAILY PRN constipation Carvedilol 25 mg 02/24/25 21:00 02/25/25 09:15 Carvedilol 25 Mg Tablet PO 25 mg Q12HR DAVID Administration Cinacalcet 90 mg 02/16/25 09:00 02/25/25 09:11 Cinacalcet 30 Mg Tablet PO 03/18/25 08:59 90 mg DAILY DAVID Administration Dextrose 12.5 gm 02/16/25 08:20 Dextrose 50% 25 Gm/50 Ml Syringe IV PUSH PRN PRN Hypoglycemia Protocol Finasteride 5 mg 02/16/25 09:00 02/25/25 09:11 Finasteride 5 Mg Tablet PO 5 mg QAM DAVID Administration Furosemide 80 mg 02/16/25 09:00 02/25/25 09:11 Furosemide 80 Mg Tablet PO 80 mg BID DAVID Administration Gabapentin 100 mg 02/16/25 09:00 02/25/25 12:58 Gabapentin 100 Mg Capsule PO 100 mg TID DAVID Administration Glucagon 1 mg 02/16/25 08:20 Glucagon For Inj 1 Mg Vial IM PRN PRN Hypoglycemia Protocol Glucose 15 gm 02/16/25 08:20 Glucose Oral Gel 15 Gm Of Glucse In 37.5 Gm Tube PO PRN PRN Hypoglycemia Protocol Heparin Sodium (Porcine) 5,000 units 02/16/25 09:00 02/25/25 12:59 Heparin Sodium 5,000 Units/Ml Vial SUB-Q 5,000 units Q12HR DAVID Administration Dextrose 1,000 mls @ 100 mls/hr 02/16/25 08:20 Dextrose 5% 1,000 Ml IVPB PRN PRN Hypoglycemia Protocol Albumin Human 50 mls @ 999 mls/hr 02/17/25 06:27 Albutein IVPB 03/19/25 06:26 Q10M PRN HYPOTENSION Insulin Aspart 4 units 02/16/25 08:00 02/25/25 10:17 Insulin Aspart (*Bkc) 100 Units/Ml SUB-Q 4 units TIDWM DAVID Administration Insulin Aspart 2 - 5 units 02/16/25 12:00 02/25/25 12:58 Insulin Aspart (*Bkc) 100 Units/Ml SUB-Q Not Given TIDWM DAVID Protocol Insulin Glargine 6 units 02/16/25 18:00 02/24/25 17:38 Insulin Glargine (*Bkc) 100 Units/Ml SUB-Q 6 units QPM DAVID Administration Loratadine 10 mg 02/16/25 09:00 02/25/25 09:11 Loratadine 10 Mg Tablet PO 10 mg DAILY DAVID Administration Loratadine 10 mg 02/16/25 07:03 Loratadine 10 Mg Tablet PO DAILY PRN itching Pentoxifylline 400 mg 02/16/25 18:00 02/24/25 17:22 Pentoxifylline 400 Mg Tabcr PO 400 mg QPM DAVID Administration Sevelamer Carbonate 3.2 gm 02/16/25 08:00 02/25/25 12:58 Sevelamer Carbonate 0.8 Gm Oral Powder Packet PO 3.2 gm TIDWM DAVID Administration Silver Sulfadiazine 1 applic 02/16/25 09:00 02/25/25 09:13 Silver Sulfadiazine 1% Cr 50 Gm Jar (*Bkc) TOPICAL 1 applic QAM DAVID Administration Tamsulosin HCl 0.4 mg 02/16/25 21:00 02/24/25 20:12 Tamsulosin Hcl 0.4 Mg Capsule PO 0.4 mg QHS DAVID Administration Radiology Results: ITS Impressions Cervical Spine CT 02/21/25 20:52 IMPRESSION: No acute fracture or traumatic malalignment in the cervical spine. Moderate neural foraminal narrowing on the left at C4-5 and on the right at C2- 3. Erosive changes at the C3-4 and C4-5 disc spaces, also seen to a lesser extent in multiple facet joints. Mild prevertebral soft tissue thickening, most pronounced at the C5-6 disc level, probably representing inflammatory panus. These changes appear chronic and largely stable, and may be secondary to inflammatory or crystalline arthropathy. Osteomyelitis/discitis considered less likely. Chronic height loss at C3 and C4 and chronic anterior wedge deformity at C5. Sclerosis of the C4 vertebral body probably related to degenerative change/arthropathy, noting that sclerotic metastases could appear similarly. Head CT 02/22/25 15:07 IMPRESSION: No acute intracranial process. 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 Chest X-Ray 02/24/25 06:19 Impression: Probable minimal bibasilar pulmonary edema. Stable mild cardiomegaly with upper quadrant. Labs Labs: Laboratory Results - last 24 hr 02/24/25 02/24/25 02/25/25 17:16 19:44 08:25 WBC RBC Hgb Hct MCV MCH MCHC RDW Plt Count MPV Immature Gran % (Auto) Neut % (Auto) Lymph % (Auto) Heard % (Auto) Eos % (Auto) Baso % (Auto) Lymph # (Auto) Heard # (Auto) Eos # (Auto) Baso # (Auto) Abs Immat Gran (auto) Absolute Neuts (auto) Absolute Nucleated RBC Band Neutrophils % Nucleated RBC % Platelet Estimate Hypochromasia Basophilic Stippling Anisocytosis Schistocytes Sodium Potassium Chloride Carbon Dioxide Anion Gap BUN Creatinine Estim Creat Clear Calc Estimated GFR Glucose POC Capillary Glucose 159 H 143 H 143 H Calcium Magnesium Total Bilirubin AST ALT Alkaline Phosphatase Total Protein Albumin 02/25/25 02/25/25 10:29 12:16 WBC 4.0 L RBC 3.20 L Hgb 8.7 L Hct 30.0 L MCV 93.8 MCH 27.2 MCHC 29.0 L RDW 19.4 H Plt Count 210 MPV 10.6 H Immature Gran % (Auto) 0.5 Neut % (Auto) 65.5 Lymph % (Auto) 17.5 L Heard % (Auto) 11.5 H Eos % (Auto) 3.5 Baso % (Auto) 1.5 H Lymph # (Auto) 0.70 L Heard # (Auto) 0.5 Eos # (Auto) 0.1 Baso # (Auto) 0.1 Abs Immat Gran (auto) 0.02 Absolute Neuts (auto) 2.6 Absolute Nucleated RBC 0.000 Band Neutrophils % Not Reportable Nucleated RBC % 0.0 Platelet Estimate Adequate Hypochromasia 1+ Basophilic Stippling 1+ Anisocytosis 1+ Schistocytes None seen Sodium 132 L Potassium 4.0 Chloride 96 L Carbon Dioxide 32 H Anion Gap 4 BUN 31 H Creatinine 4.99 H Estim Creat Clear Calc 11 Estimated GFR 11 L Glucose 148 H POC Capillary Glucose 114 H Calcium 11.1 H Magnesium 2.2 Total Bilirubin 0.4 AST 13 L ALT 13 Alkaline Phosphatase 49 Total Protein 6.0 L Albumin 3.4 L Quality VTE Prophylaxis VTE prophylaxis: pharmacologic ordered (Heparin 5000 units subQ q.12 hours)
--- NOTE | 2025-02-25 13:20 | P.PNNP_ITS ---
Progress Note: A&P Assessment and Plan (1) End stage renal disease: Code(s): N18.6 - End stage renal disease Status: Chronic Assessment and Plan: * HD tomorrow * continue T/T/S outpatient dialysis schedule while hospitalized * follow electrolytes, volume status, and clearance (2) Acute respiratory failure with hypoxia: Code(s): J96.01 - Acute respiratory failure with hypoxia Status: Acute Assessment and Plan: * improving * due to several issues: * mild pulmonary edema * suspected pneumonia * chronic CHF * COPD * relative anemia * fluid removal/ultrafiltration with dialysis as tolerated * on antibiotics, nebulizer treatments, and supplemental oxygen * wean supplemental oxygen as tolerated * follow respiratory status (3) Upper extremity weakness: Code(s): R29.898 - Other symptoms and signs involving the musculoskeletal system Status: Acute Assessment and Plan: * as noted on presentation * CT of head negative for acute process * Neurology recommendations noted * CT of cervical spine results reviewed * suspect cervical radiculopathy... (4) Pneumonia: Qualifiers: Laterality: unspecified laterality Lung location: unspecified part of lung Pneumonia type: due to unspecified organism Qualified Code(s): J18.9 - Pneumonia, unspecified organism Code(s): J18.9 - Pneumonia, unspecified organism Status: Acute Assessment and Plan: * admission CXR with suggestion of pneumonia * on antibiotic therapy * follow culture data - negative to date (5) Hypercalcemia: Code(s): E83.52 - Hypercalcemia Status: Acute Assessment and Plan: * noted over the last several days * not clear on etiology * sensipar/cinacalcet usually causes hypocalcemia * possibly due to prolonged immobilization/bed bound state? * adjusting calcium bath with dialysis to compensate (6) Anemia: Code(s): D64.9 - Anemia, unspecified Status: Chronic Assessment and Plan: * due to ESRD * Epogen with HD * follow trend of H/H (7) Essential (primary) hypertension: Code(s): I10 - Essential (primary) hypertension Status: Chronic Assessment and Plan: * reasonable control at this time * follow trend of hemodynamics (8) IDDM (insulin dependent diabetes mellitus): Status: Chronic Assessment and Plan: * follow accu-cheks * glycemic control per hospitalists Will continue to follow. L Subjective Date/time seen: 02/25/25 13:20 Interval history: Follow-up for end stage renal disease on hemodialysis. Tolerated dialysis treatment yesterday without any issues or problems; no apparent distress noted at the time of my visit; seen by Neurosurgery earlier today; no events overnight or earlier this morning. Exam 2 Narrative: General: elderly WD/WN male in NAD Heart: normal S1 and S2; no rub Lungs: coarse breath sounds at bases Abdomen: soft, nontender, nondistended, positive bowel sounds Extremities: no cyanosis or clubbing; trace edema Skin: warm and dry Objective Data Vital Signs Vital Signs: Vital Signs Temp Pulse Resp BP Pulse Ox O2 Del Method O2 Flow Rate 02/25/25 13:00 97.2 F L 61 18 120/50 L 97 02/25/25 09:15 69 02/25/25 08:00 97 Nasal Cannula 1.5 02/25/25 05:58 97.7 F 71 16 125/52 L 97 02/24/25 20:14 97.9 F 70 18 112/48 L 100 02/24/25 20:00 100 Nasal Cannula 1.5 Intake/Output Intake/Output: Intake & Output 02/22/25 02/23/25 02/24/25 02/25/25 23:59 23:59 23:59 23:59 Intake Total 1070 1388 1230 480 Output Total 0 0 3000 0 Balance 1070 1388 -1770 480 Meds/Results Medications: Active Medications Generic Name Dose Route Start Last Admin Trade Name Freq PRN Reason Stop Dose Admin Acetaminophen 650 mg 02/15/25 23:52 02/25/25 13:03 Acetaminophen 325 Mg Tablet PO 650 mg Q4H PRN Administration Mild Pain (1-3) or Fever Amlodipine Besylate 10 mg 02/16/25 09:00 02/25/25 09:11 Amlodipine Besylate 10 Mg Tablet PO 10 mg DAILY DAVID Administration Aspirin 81 mg 02/16/25 09:00 02/25/25 09:11 Aspirin 81 Mg Enteric Tablet PO 81 mg DAILY DAVID Administration Atorvastatin Calcium 20 mg 02/16/25 21:00 02/24/25 20:09 Atorvastatin 20 Mg Tablet PO 20 mg HS DAVID Administration Bisacodyl 10 mg 02/16/25 07:03 Bisacodyl 10 Mg Suppository RECTAL DAILY PRN constipation Carvedilol 25 mg 02/24/25 21:00 02/25/25 09:15 Carvedilol 25 Mg Tablet PO 25 mg Q12HR DAVID Administration Cinacalcet 90 mg 02/16/25 09:00 02/25/25 09:11 Cinacalcet 30 Mg Tablet PO 03/18/25 08:59 90 mg DAILY DAVID Administration Dextrose 12.5 gm 02/16/25 08:20 Dextrose 50% 25 Gm/50 Ml Syringe IV PUSH PRN PRN Hypoglycemia Protocol Finasteride 5 mg 02/16/25 09:00 02/25/25 09:11 Finasteride 5 Mg Tablet PO 5 mg QAM DAVID Administration Furosemide 80 mg 02/16/25 09:00 02/25/25 09:11 Furosemide 80 Mg Tablet PO 80 mg BID DAVID Administration Gabapentin 100 mg 02/16/25 09:00 02/25/25 12:58 Gabapentin 100 Mg Capsule PO 100 mg TID DAVID Administration Glucagon 1 mg 02/16/25 08:20 Glucagon For Inj 1 Mg Vial IM PRN PRN Hypoglycemia Protocol Glucose 15 gm 02/16/25 08:20 Glucose Oral Gel 15 Gm Of Glucse In 37.5 Gm Tube PO PRN PRN Hypoglycemia Protocol Heparin Sodium (Porcine) 5,000 units 02/16/25 09:00 02/25/25 12:59 Heparin Sodium 5,000 Units/Ml Vial SUB-Q 5,000 units Q12HR DAVID Administration Dextrose 1,000 mls @ 100 mls/hr 02/16/25 08:20 Dextrose 5% 1,000 Ml IVPB PRN PRN Hypoglycemia Protocol Albumin Human 50 mls @ 999 mls/hr 02/17/25 06:27 Albutein IVPB 03/19/25 06:26 Q10M PRN HYPOTENSION Insulin Aspart 4 units 02/16/25 08:00 02/25/25 14:02 Insulin Aspart (*Bkc) 100 Units/Ml SUB-Q 4 units TIDWM DAVID Administration Insulin Aspart 2 - 5 units 02/16/25 12:00 02/25/25 12:58 Insulin Aspart (*Bkc) 100 Units/Ml SUB-Q Not Given TIDWM DAVID Protocol Insulin Glargine 6 units 02/16/25 18:00 02/24/25 17:38 Insulin Glargine (*Bkc) 100 Units/Ml SUB-Q 6 units QPM DAVID Administration Loratadine 10 mg 02/16/25 09:00 02/25/25 09:11 Loratadine 10 Mg Tablet PO 10 mg DAILY DAVID Administration Loratadine 10 mg 02/16/25 07:03 Loratadine 10 Mg Tablet PO DAILY PRN itching Pentoxifylline 400 mg 02/16/25 18:00 02/24/25 17:22 Pentoxifylline 400 Mg Tabcr PO 400 mg QPM DAVID Administration Sevelamer Carbonate 3.2 gm 02/16/25 08:00 02/25/25 12:58 Sevelamer Carbonate 0.8 Gm Oral Powder Packet PO 3.2 gm TIDWM DAVID Administration Silver Sulfadiazine 1 applic 02/16/25 09:00 02/25/25 09:13 Silver Sulfadiazine 1% Cr 50 Gm Jar (*Bkc) TOPICAL 1 applic QAM DAVID Administration Tamsulosin HCl 0.4 mg 02/16/25 21:00 02/24/25 20:12 Tamsulosin Hcl 0.4 Mg Capsule PO 0.4 mg QHS DAVID Administration Radiology Results: ITS Impressions Cervical Spine CT 02/21/25 20:52 IMPRESSION: No acute fracture or traumatic malalignment in the cervical spine. Moderate neural foraminal narrowing on the left at C4-5 and on the right at C2- 3. Erosive changes at the C3-4 and C4-5 disc spaces, also seen to a lesser extent in multiple facet joints. Mild prevertebral soft tissue thickening, most pronounced at the C5-6 disc level, probably representing inflammatory panus. These changes appear chronic and largely stable, and may be secondary to inflammatory or crystalline arthropathy. Osteomyelitis/discitis considered less likely. Chronic height loss at C3 and C4 and chronic anterior wedge deformity at C5. Sclerosis of the C4 vertebral body probably related to degenerative change/arthropathy, noting that sclerotic metastases could appear similarly. Head CT 02/22/25 15:07 IMPRESSION: No acute intracranial process. 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 Chest X-Ray 02/24/25 06:19 Impression: Probable minimal bibasilar pulmonary edema. Stable mild cardiomegaly with upper quadrant. Labs Labs: Laboratory Tests 02/25/25 10:29 02/25/25 10:29 Calcium 11.1 H Magnesium 2.2 Total Bilirubin 0.4 AST 13 L ALT 13 Alkaline Phosphatase 49 Total Protein 6.0 L Albumin 3.4 L
[2025-02-25 17:13] LABS: Glucose Point of Care 119 mg/dl (65-105)
[2025-02-25] MEDS: PENTOXIFYLLINE 400 MG TABCR PO (17:34)
[2025-02-25] MEDS: INSULIN GLARGINE (*BKC) 100 UNITS/ML 6 UNITS SUB-Q (17:37)
[2025-02-25 19:53] LABS: Glucose Point of Care 112 mg/dl (65-105)
[2025-02-25] MEDS: ATORVASTATIN 20 MG TABLET PO (20:05)
[2025-02-25] MEDS: TAMSULOSIN HCL 0.4 MG CAPSULE PO (20:06)
[2025-02-26] VITALS (23 sets, daily range): BP systolic 98–168; BP diastolic 46–67; PULSE 56–75; RESP 16–18; TEMP 36.4–37; O2SAT 92–98
[2025-02-26 06:27] LABS: Basophils Absolute Auto 0.1 K/mm3 (0.0-0.1); Basophils Percent Auto 1.4 % (0.2-1.2); Eosinophils Absolute Auto 0.2 K/mm3 (0-0.3); Eosinophils Percent Auto 3.8 % (0-4.4); Hematocrit 30.2 % (42.0-52.0); Hemoglobin 9.1 g/dL (14.0-18.0); Immature Granulocyte Absolute 0.02 K/mm3 (0.00-0.031); Immature Granulocyte Percent A 0.5 % (0-0.5); Lymphocytes Absolute Auto 0.76 K/mm3 (0.9-3.2); Lymphocytes Percent Auto 17.9 % (18.3-44.2); Mean Corpuscular HGB Conc 30.1 g/dl (32-36); Mean Corpuscular Hemoglobin 27.7 pg (26-34); Mean Corpuscular Volume 91.8 fl (80-100); Mean Platelet Volume 10.5 fl (7.4-10.4); Monocytes Absolute Auto 0.5 K/mm3 (0.1-0.6); Monocytes Percent Auto 11.8 % (2.6-8.5); Neutrophils Absolute Auto 2.8 K/mm3 (1.3-6.7); Neutrophils Percent Auto 64.6 % (45.5-73.1); Platelet Count Result 220 k/mm3 (150-375); Red Blood Count 3.29 M/mm3 (4.6-6.20); Red Cell Distribution Width 19.2 % (11.5-14.5); White Blood Count 4.3 K/mm3 (4.5-10.0)
[2025-02-26 06:37] LABS: Alanine Aminotransferase 12 U/L (6-50); Albumin Level 3.5 g/dL (3.5-5.1); Alkaline Phosphatase 53 U/L (38-126); Anion Gap 9 mmol/L (4-12); Aspartate Amino Transferase 18 U/L (17-59); Bilirubin,Total 0.5 mg/dL (0.2-1.3); Blood Urea Nitrogen 35 mg/dL (9-20); Calcium 11.2 mg/dL (8.4-10.2); Carbon Dioxide 27 mmol/L (22-30); Chloride 96 mmol/L (98-107); Estimated CRCL calculation 9 ml/min; Estimated Glomerular Filt Rate 9; Glucose 81 mg/dL (65-110); Magnesium 2.3 mg/dL (1.6-2.3); Potassium 4.7 mmol/L (3.4-5.0); Sodium 132 mmol/L (137-145)
[2025-02-26 08:26] LABS: Glucose Point of Care 91 mg/dl (65-105)
[2025-02-26] MEDS: CINACALCET 30 MG TABLET 90 MG PO (08:42)
[2025-02-26] MEDS: LORATADINE 10 MG TABLET PO (08:42)
[2025-02-26] MEDS: GABAPENTIN 100 MG CAPSULE PO ×3 (08:42→18:02)
[2025-02-26] MEDS: FINASTERIDE 5 MG TABLET PO (08:42)
[2025-02-26] MEDS: FUROSEMIDE 80 MG TABLET PO ×2 (08:42→18:02)
[2025-02-26] MEDS: ASPIRIN 81 MG ENTERIC TABLET PO (08:42)
[2025-02-26] MEDS: amLODIPine BESYLATE 10 MG TABLET PO (08:42)
[2025-02-26] MEDS: SEVELAMER CARBONATE 0.8 GM ORAL POWDER PACKET 3.2 GM PO ×3 (08:43→18:02)
[2025-02-26] MEDS: HEPARIN SODIUM 5,000 UNITS/ML VIAL 5000 UNITS SUB-Q ×2 (08:43→20:53)
[2025-02-26] MEDS: SILVER SULFADIAZINE 1% CR 50 GM JAR (*BKC) 1 APPLIC TOPICAL (08:44)
[2025-02-26] MEDS: carvediloL 25 MG TABLET PO ×2 (08:45→20:50)
[2025-02-26] MEDS: INSULIN ASPART (*BKC) 100 UNITS/ML SUB-Q ×3 (10:04→18:14)
--- NOTE | 2025-02-26 10:32 | P.DS_ITS ---
DS: Admitting Diagnosis Discharge Date 02/26/25 Admitting Diagnosis Weakness and blurred vision. DS: Discharge Diagnosis Discharge Diagnosis (1) Weakness: Code(s): R53.1 - Weakness Status: Acute (2) Type 2 diabetes mellitus, with long-term current use of insulin: Qualifiers: Diabetes mellitus complication status: with neurologic complications Diabetes mellitus complication detail: with polyneuropathy Qualified Code(s): E11.42 - Type 2 diabetes mellitus with diabetic polyneuropathy; Z79.4 - intermediate designer (current) use of insulin Code(s): E11.9 - Type 2 diabetes mellitus without complications; Z79.4 - intermediate designer (current) use of insulin Status: Acute (3) End-stage renal disease on hemodialysis: Code(s): N18.6 - End stage renal disease; Z99.2 - Dependence on renal dialysis Status: Acute (4) Acute respiratory failure with hypoxia: Code(s): J96.01 - Acute respiratory failure with hypoxia Status: Acute (5) Pulmonary edema: Qualifiers: Chronicity: acute Qualified Code(s): J81.0 - Acute pulmonary edema Code(s): J81.1 - Chronic pulmonary edema Status: Acute (6) Pneumonia: Qualifiers: Laterality: unspecified laterality Lung location: unspecified part of lung Pneumonia type: due to unspecified organism Qualified Code(s): J18.9 - Pneumonia, unspecified organism Code(s): J18.9 - Pneumonia, unspecified organism Status: Acute DS: Summary Hospital Course Hospital Course: Patient presented weakness and stated he could not move any of his extremities for about 3 hours. Hypoxia in the ER and placed on oxygen. Hypoxic could be due to pulmonary edema/fluid overload from CHF exacerbation or decreased due to end- stage renal disease requiring dialysis. Nephrology has been consulted. Images suggested possible pneumonia. Started on Rocephin and Vancomycin. HD T//Sat. Received PT/OT. Seen by Neurosurgery with the following plan: -mutually agreed not to pursue CT myelogram at this time -Will plan for outpatient follow-up and possible cervical MRI at pacemaker compatible facility -Continue to work with PT/OT -Consider orthopedics consult for shoulders, can be outpatient Radiology Results: ITS Impressions Cervical Spine CT 02/21/25 20:52 IMPRESSION: No acute fracture or traumatic malalignment in the cervical spine. Moderate neural foraminal narrowing on the left at C4-5 and on the right at C2- 3. Erosive changes at the C3-4 and C4-5 disc spaces, also seen to a lesser extent in multiple facet joints. Mild prevertebral soft tissue thickening, most pronounced at the C5-6 disc level, probably representing inflammatory panus. These changes appear chronic and largely stable, and may be secondary to inflammatory or crystalline arthropathy. Osteomyelitis/discitis considered less likely. Chronic height loss at C3 and C4 and chronic anterior wedge deformity at C5. Sclerosis of the C4 vertebral body probably related to degenerative change/arthropathy, noting that sclerotic metastases could appear similarly. Head CT 02/22/25 15:07 IMPRESSION: No acute intracranial process. 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 Chest X-Ray 02/24/25 06:19 Impression: Probable minimal bibasilar pulmonary edema. Stable mild cardiomegaly with upper quadrant. Discharged to SNF for rehab. Status at Discharge Functional status at discharge: uses cane/walker Overall status at discharge: patient is not back to baseline Time Spent with Patient Time attestation: Total time spent providing and/or coordinating discharge services: Time spent: Greater than 30 minutes Exam Const: General: comfortable and no acute distress Resp: Effort & Inspection: normal respiratory effort Auscultation: diminished lung sounds Cardio: Rate: regular rate Rhythm: regular rhythm GI: GI Palp: Yes Soft to palpation Auscultation: normal bowel sounds Skin: Other: Pressure ulcer to right heel with dry eschar in the center. Extrem: General: no pedal edema Psych: Mental Status: mental status grossly normal Affect: normal affect DS: Data Data Completed and Pending Labs on day of discharge: Labs from last 24 hours 02/26/25 02/26/25 02/25/25 08:23 06:02 19:39 WBC 4.3 L RBC 3.29 L Hgb 9.1 L Hct 30.2 L MCV 91.8 MCH 27.7 MCHC 30.1 L RDW 19.2 H Plt Count 220 MPV 10.5 H Immature Gran % (Auto) 0.5 Neut % (Auto) 64.6 Lymph % (Auto) 17.9 L [place] % (Auto) 11.8 H Eos % (Auto) 3.8 Baso % (Auto) 1.4 H Lymph # (Auto) 0.76 L [place] # (Auto) 0.5 Eos # (Auto) 0.2 Baso # (Auto) 0.1 Abs Immat Gran (auto) 0.02 Absolute Neuts (auto) 2.8 Absolute Nucleated RBC 0.000 Band Neutrophils % Nucleated RBC % 0.0 Platelet Estimate Hypochromasia Basophilic Stippling Anisocytosis Schistocytes Sodium 132 L Potassium 4.7 Chloride 96 L Carbon Dioxide 27 Anion Gap 9 BUN 35 H Creatinine 5.82 H Estim Creat Clear Calc 9 Estimated GFR 9 L Glucose 81 POC Capillary Glucose 91 112 H Calcium 11.2 H Magnesium 2.3 Total Bilirubin 0.5 AST 18 ALT 12 Alkaline Phosphatase 53 Total Protein 6.0 L Albumin 3.5 02/25/25 02/25/25 02/25/25 17:03 12:16 10:29 WBC 4.0 L RBC 3.20 L Hgb 8.7 L Hct 30.0 L MCV 93.8 MCH 27.2 MCHC 29.0 L RDW 19.4 H Plt Count 210 MPV 10.6 H Immature Gran % (Auto) 0.5 Neut % (Auto) 65.5 Lymph % (Auto) 17.5 L [place] % (Auto) 11.5 H Eos % (Auto) 3.5 Baso % (Auto) 1.5 H Lymph # (Auto) 0.70 L [place] # (Auto) 0.5 Eos # (Auto) 0.1 Baso # (Auto) 0.1 Abs Immat Gran (auto) 0.02 Absolute Neuts (auto) 2.6 Absolute Nucleated RBC 0.000 Band Neutrophils % Not Reportable Nucleated RBC % 0.0 Platelet Estimate Adequate Hypochromasia 1+ Basophilic Stippling 1+ Anisocytosis 1+ Schistocytes None seen Sodium 132 L Potassium 4.0 Chloride 96 L Carbon Dioxide 32 H Anion Gap 4 BUN 31 H Creatinine 4.99 H Estim Creat Clear Calc 11 Estimated GFR 11 L Glucose 148 H POC Capillary Glucose 119 H 114 H Calcium 11.1 H Magnesium 2.2 Total Bilirubin 0.4 AST 13 L ALT 13 Alkaline Phosphatase 49 Total Protein 6.0 L Albumin 3.4 L Discharge Plan Discharge Attending physician on discharge: Gregorio Siegel Consulting providers: Brett Tang; Cole Murguia; Romero Boothe Discharging Clinician: Kalpana Pereira Anticipated Discharge Date/Time: 02/26/25 15:00 Patient Disposition: SNF Activity: may shower Diet: diabetic, renal and other - see discharge instructions Discharge Instructions: * Nepro 1 can BID. * Hemodialysis Sunday//Sunday. * Will plan for outpatient follow-up and possible cervical MRI at pacemaker compatible facility * Continue to work with PT/OT * Consider orthopedics consult outpatient for shoulders if continue to have pain. * Oxygen 1-2 liters nasal cannula. Wean to keep Sa02 >91%. Thank you for entrusting [facility] with your healthcare! Patient Instructions: Heart Failure (DC), Weakness (DC), Pneumonia (DC) Patient Language: Wolof Stand Alone Forms: General Discharge Information Follow-up/Referrals: Romero Boothe MD [Physician] - 2 Weeks Radha Carrion MD [Primary Care Provider] - 1 Week Discharge Medications: Continued carvedilol 25 mg tablet 25 mg PO BID aspirin 81 mg tablet,delayed release (DR/EC) 81 mg PO DAILY insulin lispro 100 unit/mL insulin pen 4 unit subcut .TIDAC loratadine [Claritin] 10 mg tablet 10 mg PO DAILY insulin glargine [Lantus Solostar U-100 Insulin] 100 unit/mL (3 mL) insulin pen 6 unit subcut QPM atorvastatin 20 mg tablet 20 mg PO HS tamsulosin 0.4 mg Capsule 0.4 mg PO QHS Qty: 30 0RF sevelamer carbonate 0.8 gram Powder In Packet 3.2 g PO TIDWM 30 Days Qty: 60 0RF furosemide 80 mg Tablet 80 mg PO BID Qty: 60 0RF finasteride [Proscar] 5 mg Tablet 5 mg PO QAM Qty: 30 0RF acetaminophen-codeine 300-30 mg tablet 1 tablet PO Q6H PRN (Reason: pain, severe) bisacodyl [Laxative (bisacodyl)] 10 mg suppository 10 mg RECTAL DAILY PRN (Reason: constipation) Rx Instructions: If no results from the MOM. magnesium citrate [Citroma] Solution 296 ml PO .AM PRN (Reason: constipation) Rx Instructions: If no results after enema. Fleet Enema 19-7 gram/118 mL enema 118 ml RECTAL DAILY PRN (Reason: constipation) Rx Instructions: If no results 1 day after the bisacodyl suppository was administered. gabapentin 100 mg capsule 100 mg PO TID liraglutide 0.6 mg/0.1 mL (18 mg/3 mL) pen injector 1.2 mg subcut DAILY Rx Instructions: To start on 02/20/25. magnesium hydroxide [Milk of Magnesia] 400 mg/5 mL suspension 30 ml PO HS PRN (Reason: constipation) Rx Instructions: If no bowel movement in 3 days. silver sulfadiazine [Silvadene] 1 % cream 1 applic topical QAM Rx Instructions: apply a 1.5 mm thickness topically to right dorsal hand in the morning for wound care. vitamin B complex Capsule 1 cap PO DAILY Allergy Relief (loratadine) 10 mg capsule 10 mg PO DAILY PRN (Reason: itching) amlodipine 10 mg tablet 10 mg PO DAILY cinacalcet 90 mg PO DAILY acetaminophen 325 mg Tablet 650 mg PO Q4H PRN (Reason: Mild Pain (1-3) Or Fever) Qty: 60 0RF pentoxifylline 400 mg tablet extended release 400 mg PO QPM Rx Instructions: must administer with a meal/food Discontinued cyclobenzaprine 10 mg tablet 10 mg PO TID liraglutide 0.6 mg/0.1 mL (18 mg/3 mL) pen injector 0.6 mg subcut DAILY Rx Instructions: Take until 02/19/25. Date of admission: 02/16/25 07:46 Primary Care Provider: Radha Carrion Admitting Provider: Alexandra Leo Attending physician on admission: Alexandra Leo Condition: Improved Hospitalist MIPS Heart Failure (Exclusion) Patient has history of Heart Transplant or Left Ventricular Assistive Device?: No IF YES, STOP HERE Heart Failure (Qualifier) Patient has current or prior documentation of LVEF less than or equal to 40%, or mod/servere depressed LVSF?: No IF NO, STOP HERE
[2025-02-26 11:51] LABS: Glucose Point of Care 94 mg/dl (65-105)
--- NOTE | 2025-02-26 14:35 | P.PNNP_ITS ---
Progress Note: A&P Assessment and Plan (1) End stage renal disease: Code(s): N18.6 - End stage renal disease Status: Chronic Assessment and Plan: * HD todat * continue T/T/S outpatient dialysis schedule while hospitalized * follow electrolytes, volume status, and clearance (2) Acute respiratory failure with hypoxia: Code(s): J96.01 - Acute respiratory failure with hypoxia Status: Acute Assessment and Plan: * improving * due to several issues: * mild pulmonary edema * suspected pneumonia * chronic CHF * COPD * relative anemia * fluid removal/ultrafiltration with dialysis as tolerated * on antibiotics, nebulizer treatments, and supplemental oxygen * wean supplemental oxygen as tolerated * follow respiratory status (3) Upper extremity weakness: Code(s): R29.898 - Other symptoms and signs involving the musculoskeletal system Status: Acute Assessment and Plan: * as noted on presentation * CT of head negative for acute process * Neurology and Neurosurgery recommendations noted * CT of cervical spine results reviewed * suspect cervical radiculopathy... (4) Pneumonia: Qualifiers: Laterality: unspecified laterality Lung location: unspecified part of lung Pneumonia type: due to unspecified organism Qualified Code(s): J18.9 - Pneumonia, unspecified organism Code(s): J18.9 - Pneumonia, unspecified organism Status: Acute Assessment and Plan: * admission CXR with suggestion of pneumonia * on antibiotic therapy * follow culture data - negative to date (5) Hypercalcemia: Code(s): E83.52 - Hypercalcemia Status: Acute Assessment and Plan: * noted over the last several days * not clear on etiology * sensipar/cinacalcet usually causes hypocalcemia * possibly due to prolonged immobilization/bed bound state? * adjusting calcium bath with dialysis to compensate (6) Anemia: Code(s): D64.9 - Anemia, unspecified Status: Chronic Assessment and Plan: * due to ESRD * Epogen with HD * follow trend of H/H (7) Essential (primary) hypertension: Code(s): I10 - Essential (primary) hypertension Status: Chronic Assessment and Plan: * reasonable control at this time * follow trend of hemodynamics (8) IDDM (insulin dependent diabetes mellitus): Status: Chronic Assessment and Plan: * follow accu-cheks * glycemic control per hospitalists Will continue to follow. L Subjective Date/time seen: 02/26/25 14:35 Interval history: Follow-up for end stage renal disease on hemodialysis. Tolerating dialysis treatment at the time of my visit (seen on HD at 2:25PM); resting comfortably when seen; no other acute issues/events overnight or earlier this morning; no apparent distress noted. Exam 2 Narrative: General: elderly WD/WN male in NAD Heart: normal S1 and S2; no rub Lungs: coarse breath sounds at bases Abdomen: soft, nontender, nondistended, positive bowel sounds Extremities: no cyanosis or clubbing; trace edema Skin: warm and intact Objective Data Vital Signs Vital Signs: Vital Signs Temp Pulse Resp BP Pulse Ox O2 Del Method O2 Flow Rate 02/26/25 14:30 65 114/60 02/26/25 14:15 69 168/57 H 02/26/25 14:00 68 119/59 L 02/26/25 13:38 61 146/67 H 02/26/25 13:31 97.8 F 60 18 141/63 H 02/26/25 13:31 2 02/26/25 08:45 75 02/26/25 08:00 98 Nasal Cannula 1 02/26/25 08:00 95 Nasal Cannula 1 02/26/25 05:32 97.6 F 64 16 135/64 92 02/25/25 21:08 97.6 F 60 16 128/53 L 99 02/25/25 20:06 64 02/25/25 20:00 97 Nasal Cannula 1.5 Intake/Output Intake/Output: Intake & Output 02/23/25 02/24/25 02/25/25 02/26/25 23:59 23:59 23:59 23:59 Intake Total 1388 1230 480 480 Output Total 0 3000 0 Balance 1388 -1770 480 480 Meds/Results Medications: Active Medications Generic Name Dose Route Start Last Admin Trade Name Freq PRN Reason Stop Dose Admin Acetaminophen 650 mg 02/15/25 23:52 02/25/25 20:05 Acetaminophen 325 Mg Tablet PO 650 mg Q4H PRN Administration Mild Pain (1-3) or Fever Amlodipine Besylate 10 mg 02/16/25 09:00 02/26/25 08:42 Amlodipine Besylate 10 Mg Tablet PO 10 mg DAILY DAVID Administration Aspirin 81 mg 02/16/25 09:00 02/26/25 08:42 Aspirin 81 Mg Enteric Tablet PO 81 mg DAILY DAVID Administration Atorvastatin Calcium 20 mg 02/16/25 21:00 02/25/25 20:05 Atorvastatin 20 Mg Tablet PO 20 mg HS DAVID Administration Bisacodyl 10 mg 02/16/25 07:03 Bisacodyl 10 Mg Suppository RECTAL DAILY PRN constipation Carvedilol 25 mg 02/24/25 21:00 02/26/25 08:45 Carvedilol 25 Mg Tablet PO 25 mg Q12HR DAVID Administration Cinacalcet 90 mg 02/16/25 09:00 02/26/25 08:42 Cinacalcet 30 Mg Tablet PO 03/18/25 08:59 90 mg DAILY DAVID Administration Dextrose 12.5 gm 02/16/25 08:20 Dextrose 50% 25 Gm/50 Ml Syringe IV PUSH PRN PRN Hypoglycemia Protocol Finasteride 5 mg 02/16/25 09:00 02/26/25 08:42 Finasteride 5 Mg Tablet PO 5 mg QAM DAVID Administration Furosemide 80 mg 02/16/25 09:00 02/26/25 18:02 Furosemide 80 Mg Tablet PO 80 mg BID DAVID Administration Gabapentin 100 mg 02/16/25 09:00 02/26/25 18:02 Gabapentin 100 Mg Capsule PO 100 mg TID DAVID Administration Glucagon 1 mg 02/16/25 08:20 Glucagon For Inj 1 Mg Vial IM PRN PRN Hypoglycemia Protocol Glucose 15 gm 02/16/25 08:20 Glucose Oral Gel 15 Gm Of Glucse In 37.5 Gm Tube PO PRN PRN Hypoglycemia Protocol Heparin Sodium (Porcine) 5,000 units 02/16/25 09:00 02/26/25 08:43 Heparin Sodium 5,000 Units/Ml Vial SUB-Q 5,000 units Q12HR DAVID Administration Dextrose 1,000 mls @ 100 mls/hr 02/16/25 08:20 Dextrose 5% 1,000 Ml IVPB PRN PRN Hypoglycemia Protocol Albumin Human 50 mls @ 999 mls/hr 02/17/25 06:27 Albutein IVPB 03/19/25 06:26 Q10M PRN HYPOTENSION Insulin Aspart 4 units 02/16/25 08:00 02/26/25 12:37 Insulin Aspart (*Bkc) 100 Units/Ml SUB-Q 4 units TIDWM DAVID Administration Insulin Aspart 2 - 5 units 02/16/25 12:00 02/26/25 12:33 Insulin Aspart (*Bkc) 100 Units/Ml SUB-Q Not Given TIDWM [facility] Protocol Insulin Glargine 6 units 02/16/25 18:00 02/25/25 17:37 Insulin Glargine (*Bkc) 100 Units/Ml SUB-Q 6 units QPM DAVID Administration Loratadine 10 mg 02/16/25 09:00 02/26/25 08:42 Loratadine 10 Mg Tablet PO 10 mg DAILY DAVID Administration Loratadine 10 mg 02/16/25 07:03 Loratadine 10 Mg Tablet PO DAILY PRN itching Pentoxifylline 400 mg 02/16/25 18:00 02/26/25 18:02 Pentoxifylline 400 Mg Tabcr PO 400 mg QPM DAVID Administration Sevelamer Carbonate 3.2 gm 02/16/25 08:00 02/26/25 18:02 Sevelamer Carbonate 0.8 Gm Oral Powder Packet PO 3.2 gm TIDWM DAVID Administration Silver Sulfadiazine 1 applic 02/16/25 09:00 02/26/25 08:44 Silver Sulfadiazine 1% Cr 50 Gm Jar (*Bkc) TOPICAL 1 applic QAM DAVID Administration Tamsulosin HCl 0.4 mg 02/16/25 21:00 02/25/25 20:06 Tamsulosin Hcl 0.4 Mg Capsule PO 0.4 mg QHS DAVID Administration Radiology Results: ITS Impressions Cervical Spine CT 02/21/25 20:52 IMPRESSION: No acute fracture or traumatic malalignment in the cervical spine. Moderate neural foraminal narrowing on the left at C4-5 and on the right at C2- 3. Erosive changes at the C3-4 and C4-5 disc spaces, also seen to a lesser extent in multiple facet joints. Mild prevertebral soft tissue thickening, most pronounced at the C5-6 disc level, probably representing inflammatory panus. These changes appear chronic and largely stable, and may be secondary to inflammatory or crystalline arthropathy. Osteomyelitis/discitis considered less likely. Chronic height loss at C3 and C4 and chronic anterior wedge deformity at C5. Sclerosis of the C4 vertebral body probably related to degenerative change/arthropathy, noting that sclerotic metastases could appear similarly. Head CT 02/22/25 15:07 IMPRESSION: No acute intracranial process. 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 Chest X-Ray 02/24/25 06:19 Impression: Probable minimal bibasilar pulmonary edema. Stable mild cardiomegaly with upper quadrant. Labs Labs: Laboratory Tests 02/26/25 06:02 02/26/25 06:02 Calcium 11.2 H Magnesium 2.3 Total Bilirubin 0.5 AST 18 ALT 12 Alkaline Phosphatase 53 Total Protein 6.0 L Albumin 3.5
[2025-02-26] MEDS: EPOETIN ALFA-EPBX 10,000 UNITS/ML VIAL 10000 UNITS IV PUSH (17:00)
[2025-02-26] MEDS: PENTOXIFYLLINE 400 MG TABCR PO (18:02)
[2025-02-26 18:15] LABS: Glucose Point of Care 114 mg/dl (65-105)
[2025-02-26] MEDS: INSULIN GLARGINE (*BKC) 100 UNITS/ML 6 UNITS SUB-Q (18:15)
[2025-02-26] MEDS: SODIUM CHLORIDE 0.9% IV 1,000 ML 999 ML IV CONT (18:24)
[2025-02-26] MEDS: ATORVASTATIN 20 MG TABLET PO (20:50)
[2025-02-26] MEDS: TAMSULOSIN HCL 0.4 MG CAPSULE PO (20:51)
[2025-02-27 00:23] LABS: Glucose Point of Care 154 mg/dl (65-105)
== END 2025-02-26 22:20 | DRG 291 ==
LOC: ANHED 02-16 → ANHIMU 02-16 00:13 → ANH3MED 02-17 15:14
PROVIDERS: Hospitalist; Internal Medicine; Internal Medicine Nephrology; Psychiatry & Neurology Neurology; Student in an Organized Health Care Education/Training Program; Admitting Provider Internal Medicine; Emergency Provider Preventive Medicine Aerospace Medicine; PCP Family Medicine; Visit Provider Nurse Practitioner Family
DX: I13.2 Hypertensive heart and chronic kidney disease with heart failure and with stage 5 chronic kidney disease, or end stage renal disease (principal); J18.9 Pneumonia, unspecified organism; J96.01 Acute respiratory failure with hypoxia; N18.6 End stage renal disease; E87.1 Hypo-osmolality and hyponatremia; J44.0 Chronic obstructive pulmonary disease with (acute) lower respiratory infection; I50.9 Heart failure, unspecified; E11.22 Type 2 diabetes mellitus with diabetic chronic kidney disease; N40.0 Benign prostatic hyperplasia without lower urinary tract symptoms; I25.10 Atherosclerotic heart disease of native coronary artery without angina pectoris; I73.9 Peripheral vascular disease, unspecified; E78.5 Hyperlipidemia, unspecified; G47.33 Obstructive sleep apnea (adult) (pediatric); E11.42 Type 2 diabetes mellitus with diabetic polyneuropathy; G40.909 Epilepsy, unspecified, not intractable, without status epilepticus; L89.610 Pressure ulcer of right heel, unstageable; I48.91 Unspecified atrial fibrillation; D63.1 Anemia in chronic kidney disease; Z20.822 Contact with and (suspected) exposure to COVID-19; M54.12 Radiculopathy, cervical region; E83.52 Hypercalcemia; Z99.2 Dependence on renal dialysis; Z79.4 Long term (current) use of insulin; Z95.0 Presence of cardiac pacemaker; Z95.820 Peripheral vascular angioplasty status with implants and grafts; Z95.1 Presence of aortocoronary bypass graft; Z90.49 Acquired absence of other specified parts of digestive tract; Z87.891 Personal history of nicotine dependence
CPT/HCPCS: 36415; 36600; 70450; 71045; 72125; 80048; 80053; 80069; 81001; 82306; 82607; 82746; 82805; 82948; 83090; 83605; 83735; 83880; 83921; 84100; 84145; 84484; 85018; 85025; 85610; 85730; 86706; 87040; 87340; 87635; 87641; 93005; 96365; 96375; 97110; 97161; 97165; 97530; 99285; A9270; G0257; G0378; J0692; J0696; J1644; J1815; J1938; J3370; J7030; Q5105

== ENCOUNTER 2025-03-10 06:15 | Inpatient (IN) | payer MEDICARE, OTHER, SELFPAY ==
[2025-03-10] VITALS (30 sets, daily range): BP systolic 155–190; BP diastolic 61–108; PULSE 60–93; RESP 12–20; TEMP 36.2–37.3; O2SAT 95–99
--- NOTE | ~2025-03-10 | XR_ITS ---
EXAMINATION: XR chest 1V portable DATE: 03/10/2025 06:39 INDICATION: Shortness of breath TECHNIQUE: frontal view of the chest was obtained. COMPARISON: Chest radiograph dated 02/24/2025 FINDINGS: Unchanged linear discoid atelectasis/scarring at the lateral left midlung zone. Pulmonary vascular co ngestion. There is some bilateral perihilar bronchial wall thickening versus peribronchial cuffing. N o other airspace opacities, pleural effusion or pneumothorax. Heart size is normal. Dense mitral yordan ular calcification. Median sternotomy wires and mediastinal surgical clips are seen, likely from prio r coronary artery bypass grafting. Left pectoral implantable newcomer hostess. Left subclavian vascula r stent. IMPRESSION: 1. Bronchial wall thickening. Given the pulmonary vascular congestion is could be related to peribron chial cuffing in the setting of minimal pulmonary edema. Differential would include bronchitis or stephan ctive airway disease/asthma. Reviewed, dictated and finalized at location A. IMPRESSION: 1. Bronchial wall thickening. Given the pulmonary vascular congestion is could be related to peribronchial cuffing in the setting of minimal pulmonary edema. Differential would include bronchitis or reactive airway disease/asthma.
--- NOTE | ~2025-03-10 | XR_ITS ---
Portable chest x-ray Comparison: 03/10/2025 Clinical History: Shortness of breath Findings: Probable minimal pulmonary edema pattern. Cardiomediastinal silhouette is stable, status post median sternotomy with loop recorder. Bones and soft tissues are unremarkable. Impression: Probable minimal pulmonary edema pattern. Reviewed, dictated and finalized at [facility]. Impression: Probable minimal pulmonary edema pattern.
--- NOTE | ~2025-03-10 | CT_ITS ---
EXAMINATION: CT brain wo con DATE: 03/10/2025 06:51 INDICATION: Weakness, slurred speech and diplopia. TECHNIQUE: Computed tomography (CT) of the head was performed without intravenous contrast. Sagittal and coronal reconstructions were performed. The mA was adjusted according to patient size. Iterative reconstruction technique was employed. The dose-length product was 605.33 mGy-cm. COMPARISON: head CT dated 02/22/25 FINDINGS: Small old lacunar infarcts at the left thalamus, bilateral basal bilateral lentiform nuclei and left caudate nucleus. No acute intracranial hemorrhage, acute infarction or abnormal extra axial fluid col lection. There is moderate scattered white matter hypoattenuation consistent with chronic small vesse l ischemic disease. Symmetric prominence of the sulci and ventricles consistent with moderate age-breezy ropriate diffuse cerebral volume loss. No mass/mass effect. Changes of bilateral intraocular lens rep lacement. The orbits and mastoid air cells are normal. Complete opacification of the right maxillary sinus and mucosal thickening the bilateral ethmoid and left maxillary sinuses. Intracranial calcified cerebral atherosclerosis is noted. Developmentally unfused anterior ring of C1. IMPRESSION: 1. 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 No acute intracranial process. 2. Age-related changes including moderate diffuse volume loss and moderate scattered white matter hyp oattenuation consistent with chronic small vessel ischemic disease. 3. Sinus disease. Reviewed, dictated and finalized at location [facility]. IMPRESSION: 1. 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 No acute intracranial process. 2. Age-related changes including moderate diffuse volume loss and moderate scat tered white matter hypoattenuation consistent with chronic small vessel ischemi c disease. 3. Sinus disease.
--- NOTE | 2025-03-10 06:20 | ECG_ITS ---
Test Date: 2025-03-10 06:23:56 Measurements Intervals Mobile Rate: 74 P: 0 FL: 0 QRS: 192 QRSD: 165 T: -16 QT: 429 QTc: 477 Interpretive Statements ATRIAL FIBRILLATION INDETERMINATE AXIS RIGHT BUNDLE BRANCH BLOCK [120+ ms QRS DURATION, UPRIGHT V1, 40+ ms S IN I/aVL/V4/V5/V6] Compared to ECG 02/15/2025 19:53:09 NO SIGNIFICANT CHANGES Electronically Signed On 03-10-2025 13:34:01 CDT by Curt Grady M.D.
--- NOTE | 2025-03-10 06:20 | ED.GENADULT ---
HPI - General Adult General Chief complaint: Weakness <Justina Bishop MD - Last Filed: 03/10/25 19:09> Stated complaint: Congestion <Justina Bishop MD - Last Filed: 03/10/25 19:09> Time Seen by Provider: 03/10/25 07:09 <Justina Bishop MD - Last Filed: 03/10/25 19:09> History of Present Illness HPI narrative: Patient woke up this morning of feeling congested, with increasing shortness of breath, generalized weakness, at 1st felt like he was having double vision but that has resolved, thinks that his speech is also less clear than usual, so ordered ambulance to come here, though he is scheduled for dialysis session now. Did go to dialysis on Sunday. <Justina Bishop MD - Last Filed: 03/10/25 19:09> Related Data Home medications: Home Medications ?Medication ?Instructions ?Recorded ?Confirmed ?Last Taken ?Type aspirin 81 mg tablet,delayed 81 mg PO DAILY 10/31/21 03/10/25 03/09/25 History release carvedilol 25 mg tablet 25 mg PO BID 10/31/21 03/10/25 03/09/25 History insulin lispro 100 unit/mL 4 unit subcut .TIDAC 10/31/21 03/10/25 03/09/25 History subcutaneous pen loratadine 10 mg tablet (Claritin) 10 mg PO DAILY 10/31/21 03/10/25 03/09/25 History insulin glargine 100 unit/mL (3 6 unit subcut QPM 11/07/23 03/10/25 03/09/25 22:20 History mL) subcutaneous pen (Lantus Solostar U-100 Insulin) cinacalcet 90 mg PO DAILY 12/12/23 03/10/25 03/09/25 History atorvastatin 20 mg tablet 20 mg PO HS 12/21/24 03/10/25 03/09/25 History pentoxifylline 400 mg 400 mg PO QPM 01/29/25 03/10/25 03/09/25 17:00 History tablet,extended release acetaminophen 300 mg-codeine 30 mg 1 tablet PO Q6H PRN pain, severe 02/16/25 03/10/25 03/01/25 History tablet amlodipine 10 mg tablet 10 mg PO DAILY 02/16/25 03/10/25 03/09/25 History bisacodyl 10 mg rectal suppository 10 mg RECTAL DAILY PRN constipation 02/16/25 03/10/25 Unknown History (Laxative (bisacodyl)) gabapentin 100 mg capsule 100 mg PO TID 02/16/25 03/10/25 03/09/25 History liraglutide 0.6 mg/0.1 mL (18 mg/3 1.2 mg subcut DAILY 02/16/25 03/10/25 03/09/25 History mL) subcutaneous pen injector loratadine 10 mg capsule (Allergy 10 mg PO DAILY PRN itching 02/16/25 03/10/25 03/09/25 History Relief (loratadine)) magnesium citrate (Citroma oral 296 ml PO .AM PRN constipation 02/16/25 03/10/25 Unknown History solution) magnesium hydroxide 400 mg/5 mL 30 ml PO HS PRN constipation 02/16/25 03/10/25 Unknown History oral suspension (Milk of Magnesia) sodium phosphates 19 gram-7 118 ml RECTAL DAILY PRN 02/16/25 03/10/25 Unknown History gram/118 mL enema (Fleet Enema) constipation vitamin B complex 1 cap PO DAILY 02/16/25 03/10/25 03/09/25 History acetaminophen 325 mg tablet 650 mg PO TID 03/10/25 03/10/25 03/09/25 History baclofen 5 mg tablet 5 mg PO TID 03/10/25 03/10/25 03/09/25 History cyclobenzaprine 10 mg tablet 10 mg PO Q8H PRN muscle spasm 03/10/25 03/10/25 Unknown History insulin glargine 100 unit/mL (3 6 unit subcut DAILY 03/10/25 03/10/25 03/09/25 History mL) subcutaneous pen (Lantus Solostar U-100 Insulin) insulin lispro 100 unit/mL 4 unit subcut DAILY 03/10/25 03/10/25 03/09/25 History subcutaneous pen, sensor (Humalog Tempo Pen (U-100) Insulin) ipratropium 20 mcg-albuterol 100 1 puff inhalation Q6H PRN 03/10/25 03/10/25 Unknown History mcg/actuation mist for inhalation shortness of breath or wheezing (Combivent Respimat) loperamide 2 mg capsule 2 mg PO Q4H PRN loose stool 03/10/25 03/10/25 Unknown History losartan 100 mg tablet 100 mg PO PRN PRN blood pressure 03/10/25 03/10/25 Unknown History melatonin 3 mg tablet 3 mg PO HS 03/10/25 03/10/25 03/09/25 History tramadol 50 mg tablet 50 mg PO BID 03/10/25 03/10/25 03/09/25 History umeclidinium 62.5 mcg/actuation 2 inh inhalation DAILY 03/10/25 03/10/25 03/09/25 History blister powder for inhalation (Incruse Ellipta) <Justina Bishop MD - Last Filed: 03/10/25 19:09> Allergies/adverse reactions: Allergies Allergy/AdvReac Type Severity Reaction Status Date / Time No Known Allergies Allergy Verified 03/10/25 07:55 <Justina Bishop MD - Last Filed: 03/10/25 19:09> Review of Systems Review of Systems: All systems reviewed & are unremarkable except as noted in HPI and below <Justina Bishop MD - Last Filed: 03/10/25 19:09> PMFSH Past Medical History Medical History: Medical History (Updated 03/10/25 @ 18:34 by Martina Booth MD) Bilateral shoulder pain Diabetic polyneuropathy Diabetes Coronary artery disease Chronic obstructive pulmonary disease Diabetic peripheral neuropathy Anemia Atrial fibrillation Chronic neck and back pain Insomnia History of nephrolithiasis Sinus pause (~09/2024) Obstructive sleep apnea Intolerant to CPAP Insulin dependent type 2 diabetes mellitus (~2009) Benign prostatic hyperplasia Peripheral vascular disease (~03/2023) Internal hemorrhoid, bleeding End-stage renal disease on hemodialysis DVT dialysis Sunday History of colon polyps Environmental allergies Vitamin D deficiency Dyslipidemia Essential (primary) hypertension <Justina Bishop MD - Last Filed: 03/10/25 19:09> Surgical History Surgical History: Surgical History History of cardiac pacemaker (~10/2024) Medtronic pacemaker placed due to symptomatic sinus pauses causing syncope performed at [facility] Status post cataract extraction of both eyes with insertion of intraocular lens History of colonoscopy with polypectomy History of hemorrhoidectomy (~01/12/24) Anorectal evaluation under anesthesia and excisional hemorrhoidectomy x3 12/14/23 SAW S/P peripheral artery angioplasty (~03/2023) status post balloon angioplasty of bilateral common and external iliac arteries status post left iliofemoral endarterectomy Arteriovenous fistula of left upper extremity (~2017) History of appendectomy (~1962) History of coronary artery bypass graft (~2013) <Justina Bishop MD - Last Filed: 03/10/25 19:09> Family History Family History: Family History Mother Diabetes mellitus Acute myocardial infarction Family history of congestive heart failure Father Hypertension <Justina Bishop MD - Last Filed: 03/10/25 19:09> Social History Social History: Social History Social History: The patient is . He and his brother live together prior to his recent hospitalization and placement in to [facility]. He is retired after 26 years of serving in the [employer]. He has 4 children. He used to smoke 1.5-2 packs of cigarettes per day but quit smoking in approximately 2009. He will on a rare occasion drink an alcoholic beverage maybe 2 to 3 times a year. He denies illicit substance use. Surrogate medical decision maker: Wilian Morrissey, sibling. Code status: Full code. Caffeine- daily Smoking packs per day: 1.5 Smoking cigarettes per day: 30.0 Years smoked: 44 Smoking pack-years: 66.00 Smoking status: Never smoker Second hand tobacco smoke exposure: No Alcohol intake: never Alcohol use details: Maybe 2-3 per year Substance use: never Substance use type: does not use Do You Feel Safe in your Home?: Yes Lack of Transportation: No Lack of Food: Never True Current Housing: I Have Housing Concerned About Future Housing: No Difficulty Paying Gas/Electric Bills: No Difficulty Paying for Meds: No Currently Unemployed: No Education: High School Diploma/GED Difficulty w/ Childcare or Family Care: No Living arrangements: with family Occupation/Education: retired Additional occupation/education comments: Retired from the [employer]. Spiritual care concerns: No Agree to blood products: Yes <Justina Bishop MD - Last Filed: 03/10/25 19:09> Exam Narrative: EXAMINATION OF ORGAN SYSTEMS/BODY AREAS: Constitutional: Vital signs per nursing GENERAL:[No acute distress, non-toxic appearing.] HEAD: Normal with no signs of head trauma. EYES: EOMI, conjunctiva normal ENT: Hearing grossly intact LUNGS: Nonlabored breathing. HEART: [Regular rate and rhythm] ABD: [Soft], [nontender to palpation] EXT: Normal range of motion SKIN: [No rashes or lesions.] NEURO: [Alert and oriented x 3. No gross focal sensory or strength deficits.] PSYCH: Normal affect <Justina Bishop MD - Last Filed: 03/10/25 19:09> Course Course Emergency Course: Patient signed out to me pending workup. Patient has anemia that is stable and actually improved from previous/chronic. No leukocytosis. BNP >30,000. Patient had already been given Lasix. He does report that he still makes urine. He has some abdominal bruising in my exam which he attributes to Trulicity injections. He is sleeping initially and on O2 as he desaturates while sleeping. Will require admission for dialysis. He does not know his quality analyst/technical writer. He states it is Dr. Cardona and I did inform him that that is his roll on man. Discussed patient with Dr. Booth who knows patient, knows who his quality analyst/technical writer is, and that he has presented several times previously with the same complaints including bilateral arm weakness and intermittent blurred vision. I did note that his potassium is normal and he is only hypoxic when he sleeps which is his baseline but otherwise saturating appropriately and therefore dialysis would be recommended today as per his routine schedule but is not emergent. Discussed patient with on-call hospitalist Dr. Daly who accepts admission. Ptient's code status previously noted to be full code. <Karli rGant MD - Last Filed: 03/10/25 08:23> Vital Signs Vital signs: Vital Signs Temperature 98 F 03/10/25 06:15 Pulse Rate 73 03/10/25 06:15 Respiratory Rate 14 03/10/25 06:15 Blood Pressure 159/90 H 03/10/25 06:15 Pulse Oximetry 97 03/10/25 06:15 Oxygen Delivery Room Air 05/20/25 06:15 Temperature 98.4 F 03/10/25 18:18 Pulse Rate 75 03/10/25 18:18 Respiratory Rate 18 03/10/25 18:18 Blood Pressure 165/75 H 03/10/25 18:18 Pulse Oximetry 95 03/10/25 10:03 Oxygen Delivery Nasal Cannula 03/10/25 08:16 Oxygen Flow Rate 1 03/10/25 13:53 <Justina Bishop MD - Last Filed: 03/10/25 19:09> Vital Signs Temperature 98 F 03/10/25 06:15 Pulse Rate 73 03/10/25 06:15 Respiratory Rate 14 03/10/25 06:15 Blood Pressure 159/90 H 03/10/25 06:15 Pulse Oximetry 97 03/10/25 06:15 Oxygen Delivery Room Air 03/10/25 06:15 Temperature 98.4 F 03/10/25 18:18 Pulse Rate 75 03/10/25 18:18 Respiratory Rate 18 03/10/25 18:18 Blood Pressure 165/75 H 03/10/25 18:18 Pulse Oximetry 95 03/10/25 10:03 Oxygen Delivery Nasal Cannula 03/10/25 08:16 Oxygen Flow Rate 1 03/10/25 13:53 <Karli Grant MD - Last Filed: 03/10/25 08:23> Procedures EJ/Peripheral Line Arm R: EJ/Peripheral Line Date: 03/10/25 <Justina Bishop MD - Last Filed: 03/10/25 19:09> EJ/Peripheral Line Time: 07:08 <Justina Bishop MD - Last Filed: 03/10/25 19:09> Skin Cleansed in Sterile Fashion: Yes <Justina Bishop MD - Last Filed: 03/10/25 19:09> Ultrasound Guided: Yes <Justina Bishop MD - Last Filed: 03/10/25 19:09> Size (gauge): 18 <Justina Bishop MD - Last Filed: 03/10/25 19:09> IV Secured and Dressing Applied: Yes <Justina Bishop MD - Last Filed: 03/10/25 19:09> Patient Tolerated Procedure: well and no complications <Justina Bishop MD - Last Filed: 03/10/25 19:09> Medical Decision Making MDM Narrative Medical decision making narrative: 1) Differential diagnosis: electrolyte abnormalities and fluid overload; ACS; CVA 2) Comorbidities: Inserting on dialysis, CHF, diabetes 3) External notes reviewed: Admission records from 02/15 - 02/26 4) History sources independently obtained from: EMS 5) Discussion of management with: [] 6) Independent interpretation of: EKG shows atrial fibrillation rate 74, normal axis, normal QRS QTC, no ST elevations depressions or signs of acute ischemia or arrhythmia 7) Diagnostic tests or therapies considered but not ordered: [] 8) Social determinants of health: [] 9) Shared decision making: Patient here because he woke up in [place] was having some congestion, trouble breathing, weakness in his arms, double vision, shortness of breath. The double vision has now resolved. I did review records and noted that this is nearly exactly the same presentation he came in with the last time he was here a few weeks ago. He has clear speech here, EOMI, normal vision, normal equal movements to arms/legs here; regardless not in TPA window but I did not find any focal neurologic findings on exam today and distribution of weakness in both arms also not in line with CVA. He does appear fluid overloaded with swelling to extremities and increased O2 requirement from baseline (on 2L here but normally not on O2) so will likely require dialysis. Signed out to oncoming ER physician pending labs/dispo. <Justina Bishop MD - Last Filed: 03/10/25 19:09> Vital Signs Vital Signs: Vital Signs Temperature 98 F 03/10/25 06:15 Pulse Rate 73 03/10/25 06:15 Respiratory Rate 14 03/10/25 06:15 Blood Pressure 159/90 H 03/10/25 06:15 Pulse Oximetry 97 03/10/25 06:15 Oxygen Delivery Room Air 03/10/25 06:15 Temperature 98.4 F 03/10/25 18:18 Pulse Rate 75 03/10/25 18:18 Respiratory Rate 18 03/10/25 18:18 Blood Pressure 165/75 H 03/10/25 18:18 Pulse Oximetry 95 03/10/25 10:03 Oxygen Delivery Nasal Cannula 03/10/25 08:16 Oxygen Flow Rate 1 03/10/25 13:53 <Justina Bishop MD - Last Filed: 03/10/25 19:09> Vital Signs Temperature 98 F 03/10/25 06:15 Pulse Rate 73 03/10/25 06:15 Respiratory Rate 14 03/10/25 06:15 Blood Pressure 159/90 H 03/10/25 06:15 Pulse Oximetry 97 03/10/25 06:15 Oxygen Delivery Room Air 03/10/25 06:15 Temperature 98.4 F 03/10/25 18:18 Pulse Rate 75 03/10/25 18:18 Respiratory Rate 18 03/10/25 18:18 Blood Pressure 165/75 H 03/10/25 18:18 Pulse Oximetry 95 03/10/25 10:03 Oxygen Delivery Nasal Cannula 03/10/25 08:16 Oxygen Flow Rate 1 03/10/25 13:53 <Karli Grant MD - Last Filed: 03/10/25 08:23> Lab Data Result diagrams: 03/10/25 07:09 03/10/25 07:09 <Justina Bishop MD - Last Filed: 03/10/25 19:09> Labs: Lab Results 03/10/25 03/10/25 Range/Units 07:08 07:09 WBC 7.0 (4.5-10.0) K/mm3 RBC 3.91 L (4.6-6.20) M/mm3 Hgb 10.5 L (14.0-18.0) g/dL Hct 37.2 L (42.0-52.0) % MCV 95.1 (80-100) fl MCH 26.9 (26-34) pg MCHC 28.2 L (32-36) g/dl RDW 18.8 H (11.5-14.5) % Plt Count 223 (150-375) k/mm3 MPV 10.3 (7.4-10.4) fl Immature Gran % (Auto) 0.5 (0-0.5) % Neut % (Auto) 81.4 H (45.5-73.1) % Lymph % (Auto) 6.9 L (18.3-44.2) % Story % (Auto) 8.5 (2.6-8.5) % Eos % (Auto) 1.7 (0-4.4) % Baso % (Auto) 1.0 (0.2-1.2) % Lymph # (Auto) 0.41 L (0.9-3.2) K/mm3 Story # (Auto) 0.5 (0.1-0.6) K/mm3 Eos # (Auto) 0.1 (0-0.3) K/mm3 Baso # (Auto) 0.1 (0.0-0.1) K/mm3 Abs Immat Gran (auto) 0.03 (0.00-0.031) K/mm3 Absolute Neuts (auto) 4.8 (1.3-6.7) K/mm3 Absolute Nucleated RBC 0.000 (0.0-0.012) K/mm3 Band Neutrophils % Not Reportable Nucleated RBC % 0.0 (0.0-0.2) % Platelet Estimate Adequate (Adequate) Hypochromasia 1+ Anisocytosis 1+ Macrocytosis 1+ (NORMAL) Ovalocytes 1+ Schistocytes None seen Sodium 132 L (137-145) mmol/L Potassium 4.3 (3.4-5.0) mmol/L Chloride 91 L (98-107) mmol/L Carbon Dioxide 32 H (22-30) mmol/L Anion Gap 9 (4-12) mmol/L BUN 38 H (9-20) mg/dL Creatinine 6.21 H (0.7-1.3) mg/dL Estim Creat Clear Calc 10 ml/min Estimated GFR 9 L (59 - ) Glucose 132 H (65-110) mg/dL Calcium 10.7 H (8.4-10.2) mg/dL Total Bilirubin 0.4 (0.2-1.3) mg/dL AST 17 (17-59) U/L ALT 11 (6-50) U/L Alkaline Phosphatase 54 (38-126) U/L NT-Pro-B Natriuret Pep > 26915 H (19.9-100) pg/mL Total Protein 7.0 (6.3-8.2) g/dL Albumin 3.9 (3.5-5.1) g/dL Hep Bs Antigen Negative (Negative) Hep Bs Antibody Indeterminate Influenza A (RT-PCR) Negative (Negative) Influenza B (RT-PCR) Negative (Negative) RSV (RT-PCR) Negative (Negative) SARS-CoV-2 RNA (RT-PCR) Negative (Negative) <Justina Bishop, MD - Last Filed: 03/10/25 19:09> Lab Results 03/10/25 03/10/25 Range/Units 07:08 07:09 WBC 7.0 (4.5-10.0) K/mm3 RBC 3.91 L (4.6-6.20) M/mm3 Hgb 10.5 L (14.0-18.0) g/dL Hct 37.2 L (42.0-52.0) % MCV 95.1 (80-100) fl MCH 26.9 (26-34) pg MCHC 28.2 L (32-36) g/dl RDW 18.8 H (11.5-14.5) % Plt Count 223 (150-375) k/mm3 MPV 10.3 (7.4-10.4) fl Immature Gran % (Auto) 0.5 (0-0.5) % Neut % (Auto) 81.4 H (45.5-73.1) % Lymph % (Auto) 6.9 L (18.3-44.2) % Story % (Auto) 8.5 (2.6-8.5) % Eos % (Auto) 1.7 (0-4.4) % Baso % (Auto) 1.0 (0.2-1.2) % Lymph # (Auto) 0.41 L (0.9-3.2) K/mm3 Story # (Auto) 0.5 (0.1-0.6) K/mm3 Eos # (Auto) 0.1 (0-0.3) K/mm3 Baso # (Auto) 0.1 (0.0-0.1) K/mm3 Abs Immat Gran (auto) 0.03 (0.00-0.031) K/mm3 Absolute Neuts (auto) 4.8 (1.3-6.7) K/mm3 Absolute Nucleated RBC 0.000 (0.0-0.012) K/mm3 Band Neutrophils % Not Reportable Nucleated RBC % 0.0 (0.0-0.2) % Platelet Estimate Adequate (Adequate) Hypochromasia 1+ Anisocytosis 1+ Macrocytosis 1+ (NORMAL) Ovalocytes 1+ Schistocytes None seen Sodium 132 L (137-145) mmol/L Potassium 4.3 (3.4-5.0) mmol/L Chloride 91 L (98-107) mmol/L Carbon Dioxide 32 H (22-30) mmol/L Anion Gap 9 (4-12) mmol/L BUN 38 H (9-20) mg/dL Creatinine 6.21 H (0.7-1.3) mg/dL Estim Creat Clear Calc 10 ml/min Estimated GFR 9 L (59 - ) Glucose 132 H (65-110) mg/dL Calcium 10.7 H (8.4-10.2) mg/dL Total Bilirubin 0.4 (0.2-1.3) mg/dL AST 17 (17-59) U/L ALT 11 (6-50) U/L Alkaline Phosphatase 54 (38-126) U/L NT-Pro-B Natriuret Pep > 63914 H (19.9-100) pg/mL Total Protein 7.0 (6.3-8.2) g/dL Albumin 3.9 (3.5-5.1) g/dL Hep Bs Antigen Negative (Negative) Hep Bs Antibody Indeterminate Influenza A (RT-PCR) Negative (Negative) Influenza B (RT-PCR) Negative (Negative) RSV (RT-PCR) Negative (Negative) SARS-CoV-2 RNA (RT-PCR) Negative (Negative) <Karli Grant MD - Last Filed: 03/10/25 08:23> Discharge Plan Discharge Clinical Impression: Chest congestion, Anemia, Chronic kidney disease on chronic dialysis <Justina Bishop MD - Last Filed: 03/10/25 19:09> Patient Disposition: Still a Patient <Justina Bishop MD - Last Filed: 03/10/25 19:09> Condition: Stable <Justina Bishop MD - Last Filed: 03/10/25 19:09>
--- NOTE | 2025-03-10 06:46 | PC.NURSE ---
Pt refusing straight catheter at this time. pt states he only urinates about every three days , but will try to provide urine sample.
--- OUTSIDE RECORDS SUMMARY | 2025-03-10 06:53 | XMS_ITS | Encounter Summary ---
Author Organization [facility] Health Address [address] [place] [address] Care Team Providers Care Oil Well Drilling Manager Name Role Phone Mariza Carrion MD Primary Care Provider Encounter Details Date Type Department Care Team (Late Contact Info) Description 06/03/2018 [facility] Outpatient Visit [facility] [address] [place] [address] [place] [id number] [facility] [address] [place] [id number] Social History Tobacco Use Types Packs/Day [...] Description 03/23/2025 8:[address] [facility] Vascular Services [address] [facility], [address] [place] [address] [place] [id number] [facility] [address] [place] [id number] documented as of this encounter Visit Diagnoses Not on filedocumented in this encounter Care Teams Oil Well Drilling Manager Relationship Specialty Start Date End Date Mariza Carrion MD [address] [place] [phone] PCP - General Family Medicine 08/26/18 documented as of this encounter
--- OUTSIDE RECORDS SUMMARY | 2025-03-10 06:53 | XMS_ITS ---
Author Organization [facility] Address [address] [place] [id number] Care Team Providers Care Paper Sales Manager Name Role Phone Efren Hoyos MD Unavailable Dank Hicks MD Unavailable [phone] Mariza Carrion MD Primary Care Provider Dialysis Access Sites Type Status Location Placement Date Removal Da te AV fistula Active Left Upper Arm - Anterior AV fistula Inactive 10/23/2024 Procedures Procedure Name Priority Date/Time Associated Diagnosis Comments DEVICE CHECK - IN OFFICE Routine 01/21/2025 9:26 AM CDT Cardiac pacemaker in situ Asystole (HCC) Syncope and collapse Symptomatic bradycardia POCT HEMOGLOBIN A1C Routine 11/24/2024 10:01 AM ACCESS LIAISON Type 2 diabetes mellitus with hyperglycemia, with long-term current use of insulin (CMS/HCC) EGFR Routine 10/25/2024 5:48 AM ACCESS LIAISON HEPATITIS PANEL, ACUTE Routine 10/23/2024 2:45 PM ACCESS LIAISON HM DIABETES EYE EXAM Routine 08/13/2024 9:40 AM CDT ALBUMIN CREATININE RATIO, URINE Routine 03/10/2024 8:46 AM CDT Type 2 diabetes mellitus with hyperglycemia, with long-term current use of insulin (CMS/HCC) LIPID PANEL Routine 03/03/2024 9:29 AM CDT Type 2 diabetes mellitus with hyperglycemia, with long-term current use of insulin ([facility]) Hyperlipidemia associated with type 2 diabetes mellitus ([facility]) CT ABDOMEN PELVIS WO CONTRAST Schedule Routine, Read Routine (OP Routine) 12/05/2021 11:53 AM ACCESS LIAISON End stage renal disease (HCC) from Last [...] hyperglycemia, with long-term current use of insulin ([facility]) Use to test glucose 5 times daily 450 each 2 04/03/20 18 Active lancets (freestyle) 28 gauge miscIndications:T ype 2 diabetes mellitus with hyperglycemia, with long-term current use of insulin ([facility]) Use to test glucose 5 times daily [...] hyperglycemia, with long-term current use of insulin ([facility]) Change sensor every 14 days 9 kit [...] long-term current use of insulin (HCC) Use pads 5 times daily 200 each [...] 12/09/2019 Assessment & Plan (09/03/2023 9:28 AM ACCESS LIAISON): Chronic problem. [facility] in [place]: //Saturdays. LUE fistula. Assessment & Plan (03/05/2023 9:59 AM CDT): Chronic problem. [facility] in [place]: //Saturdays. LUE fistula. ESRD on dialysis 05/22/2019 Hyperlipidemia associated with type 2 diabetes fouzia victoria 05/22/2019 Assessment & Plan (11/24/2024 10:10 AM ACCESS LIAISON): Chronic problem. Controlled on current Atorvastatin 20mg. Last lipid panel: 03/03/24 LDL=33, TG=75. Assessment & Plan (03/03/2024 8:45 AM CDT): Chronic problem. Controlled on current Atorvastatin 20mg. Last lipid panel: 03/05/23 LDL=57, JL=608. Will update labs today. Does not mychart. Verified phone #/address to contact re: results. Assessment & Plan (09/03/2023 9:28 AM ACCESS LIAISON): Chronic problem. Controlled on current Atorvastatin 20mg. Last lipid panel: 03/05/23 LDL=57, RO=973. Assessment & Plan (03/05/2023 9:53 AM CDT): Chronic problem. Controlled on current Atorvastatin 20mg. Last lipid panel: 12/05/21 LDL=36, NJ=827. Will update labs today. Verified phone #/address to contact re: results. Assessment & Plan (11/02/2022 2:47 PM ACCESS LIAISON): Chronic, well controlled Low fat Low cholesterol [...] Lipitor Assessment & Plan (09/07/2020 2:26 PM ACCESS LIAISON): Goal of treatment , LDL cholesterol less [...] panel Assessment & Plan (12/09/2019 2:03 PM ACCESS LIAISON): Very high TG Add Vascepa Assessment & [...] statin therapy Coronary artery disease invo lving atka coronary artery of atka heart without angina pectoris 10/04/2017 Hx of CABG 10/04/2017 Class 2 severe obesity due t o excess calories with serious comorbidity and body mass index (BMI) of 38.0 to 38.9 in adult 05/22/2017 Assessment & Plan (10/24/2018 12:58 PM ACCESS LIAISON): Making progress with diet efforts. Continue Assessment & Plan (02/08/2018 11:01 AM CDT): Importance of following diet and exercising discussed. Hypertension associated with diabetes 05/22/2017 Assessment & Plan (11/24/2024 10:11 AM ACCESS LIAISON): Chronic problem. Controlled on current losartan 100mg daily, amlodipine 10mg daily Assessment & Plan (03/03/2024 8:45 AM CDT): Chronic problem. BP elevated upon arrival. Controlled on current Carvedilol 25mg bid, losartan 100mg daily. No changes at this time. Will update labs today. Does not mychart. Verified phone #/address to contact re: results. Assessment & Plan (09/03/2023 9:28 AM ACCESS LIAISON): Chronic problem. BP elevated upon arrival. Controlled [...] renal Assessment & Plan (10/24/2018 12:57 PM ACCESS LIAISON): Controlled. Continue current medication plan and follow up with cardiology Assessment & Plan (06/18/2018 2:30 PM CDT): BP controlled on current medication plan. Continue follow up with nephrology Assessment & Plan (02/08/2018 11:00 AM CDT): Continue same medication Assessment & Plan (12/11/2017 10:24 AM ACCESS LIAISON): Goal blood pressure is less than 140/85 [...] mellitus Assessment & Plan (11/24/2024 10:16 AM ACCESS LIAISON): Chronic problem, controlled on current regimen. A1c [...] daily for skin breakdown and infection (sees performance improvement specialist regularly). Assessment & Plan (03/03/2024 9:19 AM [...] daily for skin breakdown and infection (sees performance improvement specialist regularly). Assessment & Plan (09/03/2023 9:27 AM ACCESS LIAISON): Chronic problem, controlled on current regimen. A1c [...] daily for skin breakdown and infection (sees performance improvement specialist regularly). Assessment & Plan (03/05/2023 10:13 AM CDT): Chronic problem, controlled on current regimen. Current medications: Trulicity 1.5mg weekly Lantus 6 units every morning Humalog 4 units before meals For sugars over 160: take 6 units For sugars over 200: take 8 units Seen by [facility] every 4-5 mos; letter sent to get [...] daily for skin breakdown and infection (sees performance improvement specialist regularly). Will update labs today. Verified phone #/address to contact re: results. Assessment & Plan (11/02/2022 2:43 PM ACCESS LIAISON): Well controlled, with risk of hypoglycemia Insuli [...] Ross Assessment & Plan (09/07/2020 2:26 PM ACCESS LIAISON): Hba1c was Lab Results Component Value Date [...] Trulicity. Assessment & Plan (12/09/2019 2:03 PM ACCESS LIAISON): Your Hba1c today was: Lab Results Component Value Date HGBA1C 9.3 12/09/2019 meaning a 3 month average sugar of : 224 Your goal hba1c is under 7.0 to prevent intermodal customer service diabetes complications ( eye , kidney and [...] hypoglycemia. Assessment & Plan (10/24/2018 1:00 PM ACCESS LIAISON): Stable BG pattern 100-140 reported since last adjustment to plan. No change today. BG goals reviewed. Advised to lower Lantus by 2 units if FBG are < 100 x 2 days/wk. For planned activity, reduce Humalog dose by 1/2 at preceding meal. Assessment & Plan (09/19/2018 11:11 AM ACCESS LIAISON): Your Hba1c today was: Lab Results Component [...] time. Assessment & Plan (12/11/2017 10:47 AM ACCESS LIAISON): Hba1c was .5.4 Today, 1800 calorie, consistent [...] Lantus by 5 more unit. [facility] & Plan (05/22/2017 11:37 AM CDT): [...] drink = 0.6 oz pur e alcohol) [facility] Recommindities Answer Date Recorded In the past 12 months has [employer], gas, oil, or water [employer] threatened to shut off services in your [...] often do you attend chur ch or sikhism services? Never 10/23/2024 Do you belong to any clubs o r organizations such as jew groups, unions, fraternal or athletic groups, or [...] time in the past 12 m [facility], were you homeless or living in a senior care (including now)? No 10/23/2024 Personal Safety Answer Date Recorded Have you ever been in or are you currently in a harmful physical or emotional relationship or is someone making you feel afraid or unsafe? Denies 10/22/2024 Sex and Gender Information Value Date Recorded Sex Assigned at Not on file Legal Sex Male 7:27 PM ACCESS LIAISON Gender Identity Not on file Sexual Orientation Not on file Last Filed Vital Signs Vital Sign Reading Time Taken Comments Blood Pressure 102/58 11/24/2024 9:58 AM ACCESS LIAISON Pulse 75 11/24/2024 9:58 AM ACCESS LIAISON Temperature 36.3 C (97.3 F) 10/25/2024 2:15 PM ACCESS LIAISON Respiratory Rate 20 11/24/2024 9:58 AM ACCESS LIAISON Oxygen Saturation 100% 10/25/2024 1:15 PM ACCESS LIAISON Inhaled Oxygen Concentration - - Weight 91.3 kg (201 lb 4.5 oz) 10/22/2024 8:29 P M ACCESS LIAISON Height 170.2 cm (5' 7.01 ) 11/24/2024 9:58 AM CS T Body Mass Index 31.52 10/22/2024 8:29 PM ACCESS LIAISON Results * DEVICE CHECK - IN OFFICE (01/21/2025 9:26 AM CDT) Anatomical Region Laterality Modality Other Narrative 01/29/2025 8:25 AM CDT Medtronic Micra AV2 Pacemaker. Dx; Symptomatic Bradycardia, Sinus Arrest, Syncope. DOI 10/24/2024-[place]. [place]. [facility] remote. Supervising MD: Dr Giordano. Interrogation [...] provided. [facility] scheduled 04/22/2025. Yamel Cesar, JIMMY Dank Hicks MD [facility] CARDI[facility] SERVICES PROC EDURES Final Result * POCT hemoglobin A1c (11/24/2024 10:01 AM ACCESS LIAISON) Hemoglobin A1C, POC 4.9 4.0 - 5.6 % Blood 11/24/2024 10:0 1 AM ACCESS LIAISON us Bertha Pinto NP POINT OF CARE TEST ORDERA BLES Final Result * (ABNORMAL) eGFR (10/25/2024 5:48 AM ACCESS LIAISON) eGFR 9(L) >=60 mL/min/1. 73 m2 Comment: [...] last reviewed 2021. Blood 10/25/2024 5:48 AM ACCESS LIAISON 10/25/2024 6:03 AM ACCESS LIAISON Raisa Scherer NP LAB BLOOD ORDERABLES Jeaneth l Result [facility] [address] [place] [address] * Hepatitis panel, acute Blood (10/23/2024 2:45 PM ACCESS LIAISON) Hep A IgM Nonreactive Nonreactive Comment: Interpretive Data: If Hep A IgM Ab is reported as Equivocal, a new sample should be drawn in two weeks for testing. Current interpretive data was last revised on 20. Hep B core IgM Nonreactive Nonreactive [facility] Comment: Interpretive Data If HepB Core IgM Ab is reported as Equivocal, a new sample should be drawn in two weeks for testing. Current interpretive data was last revised on 20. Hep C Ab Nonreactive Nonreactive [facility] Comment: Interpretive Data Nonreactive: [...] revised on 2020. HepBsAg Nonreactive Nonreactive [facility] Blood 10/23/2024 2:45 PM ACCESS LIAISON 10/23/2024 2:46 PM ACCESS LIAISON Sherrill Christianson MD LAB MICROBIOLOGY - GENERAL ORDERABLES Final Result Performing Organization Address [facility] Co de Phone Number [facility] [address] Department [place] [address] * (ABNORMAL) DIABETES EYE EXAM (08/13/2024 9:40 AM CDT) Historical Provider [facility] Edited Result - Final * (ABNORMAL) Albumin Creatinine Ratio, Urine (03/10/2024 8:46 AM CDT) Albumin Ur 3,169.5 mg/L Comment: Interpretive Data No reference range established. Current interpretive data was last revised 2019. Creatinine Ur 47.7 mg/dL [facility] Comment: Interpretive Data No reference range established. Current interpretive data was last revised 2019. Albumin Creatinine Ratio, Ur 6,645(H) 1 - 29 mg/g [facility] Urine 03/10/2024 8:46 AM CDT 03/11/2024 9:11 AM CDT Bertha Pinto NP LAB URINE ORDERABLES Jeaneth l Result Performing Organization Address [facility]/ZIP Co de Phone Number [facility] [address] Department [place] [address] * (ABNORMAL) Lipid panel (03/03/2024 9:29 AM [...] 03/03/2024 4:40 PM CDT us Bertha Pinto ORNAMENT STITCHER LAB BLOOD ORDERABLES Jeaneth l Result [facility] [address] Department [place] [address] * CT Abdomen Pelvis WO Contrast (12/05/2021 11:53 AM ACCESS LIAISON) Anatomical Region Laterality Modality Body N/A Computed Tomogra phy 12/05/2021 12:0 4 PM ACCESS LIAISON Impressions 12/05/2021 12:04 PM ACCESS LIAISON Bone windows show no suspicious lytic or blastic lesions. IMPRESSION: 1. 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 2. 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 Electronically signed by: Ryan Cameron M.D. Narrative 12/05/2021 12:04 PM ACCESS LIAISON EXAMINATION: Computed tomography of the abdomen/pelvis without [...] adeniform shape. There is atrophy of both atka kidneys. Adjacent fat stranding is likely related [...] adeniform shape. There is atrophy of both atka kidneys. Adjacent fat stranding is likely related [...]
--- OUTSIDE RECORDS SUMMARY | 2025-03-10 06:55 | XMS_ITS | Clinical Summary ---
Author Organization [employer] Address [address] [place] [address] Care Team Providers Care Charting Clerk Name Role Phone Mariza Carrion MD Primary Care Provider Source Comments [facility],non-owned Affiliates and Associated Physician Practices is amultiple site organization consisting of ambulatory clinics and hospital sitesin [place], [place], [place] and [place]. This disclosure is being madepursuant to the Care Everywhere program and may not contain all information available regarding this patient. Last updated 18.[facility] Allergies No known active allergies Medications * [...] Use pads 5 times daily 8 Active srasb-0-nwdu ethyl esters (LOVAZA) 1 g capsule Take [...] FOR MUSCLE SPASM 4 Active HYDROcodone-ac etaminophen ([place]) 5-325 MG tablet 4 Active Lokelma 10 [...] and heating? Not hard at all 04/06/2023 [facility] - Occupational Stress [...] Comments Blood Pressure 147/70 09/22/2024 8:55 AM MULTIGRAPH OPERATOR Pulse 68 09/22/2024 8:55 AM MULTIGRAPH OPERATOR Temperature 36.2 C (97.2 F) 09/22/2024 7:24 AM MULTIGRAPH OPERATOR Respiratory Rate 15 09/22/2024 8:55 AM MULTIGRAPH OPERATOR Oxygen Saturation 92% 09/22/2024 8:55 AM MULTIGRAPH OPERATOR Inhaled Oxygen Concentration 25% 04/11/2023 7 :26 PM CDT Weight 87.9 kg (193 lb 12.6 oz) 09/22/2024 7:24 AM MULTIGRAPH OPERATOR Height 170.2 cm (5' 7 ) 09/22/2024 7:24 AM MULTIGRAPH OPERATOR Body Mass Index 30.35 09/22/2024 7:24 AM MULTIGRAPH OPERATOR Plan of Treatment Upcoming Encounters Date Type Department Care Team (Late st Contact Info) Description 03/23/2025 8:00 AM CDT Appointment [facility] Health Vascular Services [address], [address] [place] [address] [place] [address] [address] [place] [address] Health Maintenance Due Date Last [...] this topic Medical Devices Implanted Type Area Wet Silk Hanger Device Identifier Shelf Expiration Date Model / Serial / Lot Mynxgrip Vascular Closure Device Implanted:Qty: 1 on 04/11/2023 by Matt Beyer DO at [facility] Right: Groin 01/19/2025 [id number] / [id number] / [id number] 5tch Cv 6x1cm [employer]ix Decellularized Implanted:Qty: 1 on 04/20/2023 by Matt Beyer DO at [facility] N/A: Other (See Descriptio n) [employer] 01/28/2024 [id number] / / [id number] Description:LEFT FEMORAL ART BARI Procedures Procedure Name Priority Date/Time Associated Diagnosis Comments HEPATITIS SCREEN ACUTE STAT 04/07/2023 8:19 AM CDT from Last 3 Months or Most Recently Relevant to Health Maintenance Results * HEPATITIS SCREEN ACUTE (04/07/2023 8:19 AM CDT) Pathologist [facility] HAV Antibody IgM Non Reactive Non Reactive 04/07/2023 9:28 AM CDT [facility] HBsAg Non Reactive Non Reactive 04/07/2023 9:28 AM CDT [facility] HBc Antibody IgM Non Reactive Non Reactive 04/07/2023 9:28 AM CDT [facility] HCV Antibody Screen Non Reactive Non Reactive 04/07/2023 9:28 AM CDT [facility] Blood BLOOD SPECIMEN / Unknown Venipuncture / Unknown 04/07/2023 8:19 AM CDT 04/07/2023 8:31 AM CDT Narrative [facility] - 04/07/2023 9:28 AM CDT Non Reactive - Antibodies to Hepatitis C virus (HCV) were not detected, result does not exclude early acute HCV infection. Marito Rios MD LAB - CHEMISTRY ORDERABLES Jeaneth mari Result [facility] [address] [place] [address] from Last 3 Months or Most Recently Relevant to Health Maintenance Insurance MEDICARE MEDICARE [facility] Advance Directives Documents on File Type Date Recorded Patient Erp Developer Expl anation Adv Directive/Living Will/POA 05/02/2023 3:49 PM * Full Code (Latest Code Status on File) Date Activated Date Inactivated Comments 04/06/2023 9:49 AM 05/01/2023 4:44 PM Care Teams Charting Clerk Relationship Specialty Start Date End Date Mariza Carrion MD [address] [place] [address] PCP - General Family Medicine 08/26/18
--- OUTSIDE RECORDS SUMMARY | 2025-03-10 06:55 | XMS_ITS | Clinical Summary ---
Author Organization [facility] Address [address] [place] [phone] Phone Care Team Providers Care Optical Instrument Repairer Name Role Phone Mariza Carrion MD Primary [...] dir 0 11/12/2017 Active ergocalciferol (VITAMIN D-2) 29633 units capsule Take 1 capsule (50,000 Units total) by mouth 2 (two) times a week. 28 capsule 3 03/27/2019 Active hydrALAZINE (APRESOLINE) 100 MG tablet TAKE 1 TABLET TWICE A DAY 180 tablet 4 04/30/2019 Active aspirin 81 MG chewable tablet one p.o. qd 05/23/2012 A ctive ergocalciferol (VITAMIN D-2) 47303 units capsule one p.o. capsule once a [...] (Season Ended) 2025 Insurance MEDICARE Care Teams Optical Instrument Repairer Relationship Specialty Start Date End Date Mariza Carrion MD [address] [place] [address] PCP - General Internal Medicine 01/06/19
--- OUTSIDE RECORDS SUMMARY | 2025-03-10 06:55 | XMS_ITS | CONTINUITY OF CARE DOCUMENT ---
Author Name milly atkins Address Unknown Organization [facility] Address [address] [place] [address] Phone [phone] Care Team Providers Care Director Of Pupil Personnel Program Name Role Phone Kostas Pelaez MD Unavailable [phone] Kostas Pelaez MD Unavailable [phone] PROBLEMS Condition Status Date Provider Notes S/P Single chamb PCM Micra - Medtronic ( MRI safe) active Tonie Garay INSURANCE PROVIDERS Payer name Policy type / Coverage type [place] red green party ID [employer] [place] [id number] [place] PART B Medicare [id number]
--- OUTSIDE RECORDS SUMMARY | 2025-03-10 06:55 | XMS_ITS | Referral Summary ---
Author Organization [facility] Address [address] [place] [phone] Care Team Providers Care Steward/Stewardess Smoke Room Name Role Phone Efren Hoyos MD Unavailable Dank Hicks MD Unavailable [phone] Mariza Carrion MD Primary Care Provider Encounters Date Type Department Care Team Description 01/21/2025 9:30 AM CDT Ancillary Procedure [facility] Cardiology [address] [place] [address] [address] [place] [phone] Cardiac pacemaker in situ; Asystole (HCC); Syncope and collapse; Symptomatic bradycardia 01/19/2025 Telephone [facility] Cardiology [address] [place] [address] [place] [phone] Dank Hicks MD 01/05/2025 Telephone [facility] Diabetes and Endocrinology [address] [place] [phone] Bertha Pinto NP Release of Information 12/30/2024 Telephone [facility] Cardiology [address] [place] [address] [place] [phone] Dank Hicks MD 12/22/2024 Orders Only [facility] Cardiology [address] [place] [address] [address] [place] [phone] Curt Grady MD from Last 3 Months Allergies No known [...] long-term current use of insulin ([facility]) Use to test glucose 5 times daily 450 each 2 04/03/20 18 Active lancets (freestyle) 28 gauge miscIndications:T ype 2 diabetes mellitus with hyperglycemia, with long-term current use of insulin ([facility]) Use to test glucose 5 times daily [...] long-term current use of insulin ([facility]) Change sensor every 14 days 9 kit [...] long-term current use of insulin ([facility]) Use pads 5 times daily 200 each [...] long-term current use of insulin ([facility]) Inject 0.5ML(1.5MG total) under the skin every [...] 12/09/2019 Assessment & Plan (09/03/2023 9:28 AM NURSE PRACTITIONER PER DIEM): Chronic problem. [facility] [place]: //Saturdays. LUE fistula. Assessment & Plan (03/05/2023 9:59 AM CDT): Chronic problem. [facility] [place]: /Saturdays. LUE fistula. ESRD on dialysis 05/22/2019 Hyperlipidemia associated with type 2 diabetes fouzia victoria 05/22/2019 Assessment & Plan (11/24/2024 10:10 AM NURSE PRACTITIONER PER DIEM): Chronic problem. Controlled on current Atorvastatin 20mg. Last lipid panel: 03/03/24 LDL=33, TG=75. Assessment & Plan (03/03/2024 8:45 AM CDT): Chronic problem. Controlled on current Atorvastatin 20mg. Last lipid panel: 03/05/23 LDL=57, OX=343. Will update labs today. Does not mychart. Verified phone #/address to contact re: results. Assessment & Plan (09/03/2023 9:28 AM NURSE PRACTITIONER PER DIEM): Chronic problem. Controlled on current Atorvastatin 20mg. Last lipid panel: 03/05/23 LDL=57, KJ=751. Assessment & Plan (03/05/2023 9:53 AM CDT): Chronic problem. Controlled on current Atorvastatin 20mg. Last lipid panel: 12/05/21 LDL=36, HE=377. Will update labs today. Verified phone #/address to contact re: results. Assessment & Plan (11/02/2022 2:47 PM NURSE PRACTITIONER PER DIEM): Chronic, well controlled Low fat Low cholesterol [...] Lipitor Assessment & Plan (09/07/2020 2:26 PM NURSE PRACTITIONER PER DIEM): Goal of treatment , LDL cholesterol less [...] panel Assessment & Plan (12/09/2019 2:03 PM NURSE PRACTITIONER PER DIEM): Very high TG Add Vascepa Assessment & [...] statin therapy Coronary artery disease invo lving [place] coronary artery of [place] heart without angina pectoris 10/04/2017 Hx of CABG 10/04/2017 Class 2 severe obesity due t o excess calories with serious comorbidity and body mass index (BMI) of 38.0 to 38.9 in adult 05/22/2017 Assessment & Plan (10/24/2018 12:58 PM NURSE PRACTITIONER PER DIEM): Making progress with diet efforts. Continue Assessment & Plan (02/08/2018 11:01 AM CDT): Importance of following diet and exercising discussed. Hypertension associated with diabetes 05/22/2017 Assessment & Plan (11/24/2024 10:11 AM NURSE PRACTITIONER PER DIEM): Chronic problem. Controlled on current losartan 100mg daily, amlodipine 10mg daily Assessment & Plan (03/03/2024 8:45 AM CDT): Chronic problem. BP elevated upon arrival. Controlled on current Carvedilol 25mg bid, losartan 100mg daily. No changes at this time. Will update labs today. Does not mychart. Verified phone #/address to contact re: results. Assessment & Plan (09/03/2023 9:28 AM NURSE PRACTITIONER PER DIEM): Chronic problem. BP elevated upon arrival. Controlled [...] renal Assessment & Plan (10/24/2018 12:57 PM NURSE PRACTITIONER PER DIEM): Controlled. Continue current medication plan and follow up with cardiology Assessment & Plan (06/18/2018 2:30 PM CDT): BP controlled on current medication plan. Continue follow up with nephrology Assessment & Plan (02/08/2018 11:00 AM CDT): Continue same medication Assessment & Plan (12/11/2017 10:24 AM NURSE PRACTITIONER PER DIEM): Goal blood pressure is less than 140/85 [...] mellitus Assessment & Plan (11/24/2024 10:16 AM NURSE PRACTITIONER PER DIEM): Chronic problem, controlled on current regimen. A1c [...] daily for skin breakdown and infection (sees adjustment supervisor regularly). Assessment & Plan (03/03/2024 9:19 [...] daily for skin breakdown and infection (sees adjustment supervisor regularly). Assessment & Plan (09/03/2023 9:27 AM NURSE PRACTITIONER PER DIEM): Chronic problem, controlled on current regimen. A1c [...] daily for skin breakdown and infection (sees adjustment supervisor regularly). Assessment & Plan (03/05/2023 10:13 AM CDT): Chronic problem, controlled on current regimen. Current medications: Trulicity 1.5mg weekly Lantus 6 units every morning Humalog 4 units before meals For sugars over 160: take 6 units For sugars over 200: take 8 units Seen by [facility] every 4-5 mos; letter sent to get [...] daily for skin breakdown and infection (sees adjustment supervisor regularly). Will update labs today. Verified phone #/address to contact re: results. Assessment & Plan (11/02/2022 2:43 PM NURSE PRACTITIONER PER DIEM): Well controlled, with risk of hypoglycemia Insuli [...] Ross Assessment & Plan (09/07/2020 2:26 PM NURSE PRACTITIONER PER DIEM): Hba1c was Lab Results Component Value Date [...] Trulicity. Assessment & Plan (12/09/2019 2:03 PM NURSE PRACTITIONER PER DIEM): Your Hba1c today was: Lab Results Component [...] hypoglycemia. Assessment & Plan (10/24/2018 1:00 PM NURSE PRACTITIONER PER DIEM): Stable BG pattern 100-140 reported since last adjustment to plan. No change today. BG goals reviewed. Advised to lower Lantus by 2 units if FBG are < 100 x 2 days/wk. For planned activity, reduce Humalog dose by 1/2 at preceding meal. 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 Assessment & Plan (12/11/2017 10:47 AM NURSE PRACTITIONER PER DIEM): Hba1c was .5.4 Today, 1800 calorie, consistent [...] 05/22/2019 Assessment & Plan (09/19/2018 11:20 AM NURSE PRACTITIONER PER DIEM): Prevention and treatment of hypoglycemia were discussed [...] therapy Assessment & Plan (10/24/2018 12:57 PM NURSE PRACTITIONER PER DIEM): Check lipid panel Assessment & Plan (06/18/2018 2:31 PM CDT): Continue statin therapy Assessment & Plan (02/08/2018 11:00 AM CDT): Continue atorvastatin Assessment & Plan (12/11/2017 10:45 AM NURSE PRACTITIONER PER DIEM): Goal of treatment , LDL cholesterol less [...] drink = 0.6 oz pur e alcohol) [facility] [employer] Answer Date Recorded In the past 12 months has [employer], [employer], oil, or water [employer] threatened to shut off services in your [...] often do you attend chur ch or congregation services? Never 10/23/2024 Do you belong to any clubs o r organizations such as hindu groups, unions, fraternal or athletic groups, or [...] any time in the past 12 m [facility], were you homeless or living in a [place] health care facility (including now)? No 10/23/2024 Personal Safety Answer Date Recorded Have you ever been in or are you currently in a harmful physical or emotional relationship or is someone making you feel afraid or unsafe? Denies 10/22/2024 Sex and Gender Information Value Date Recorded Sex Assigned at Not on file Legal Sex Male 7:27 PM NURSE PRACTITIONER PER DIEM Gender Identity Not on file Sexual Orientation Not on file Last Filed Vital Signs Vital Sign Reading Time Taken Comments Blood Pressure 102/58 11/24/2024 9:58 AM NURSE PRACTITIONER PER DIEM Pulse 75 11/24/2024 9:58 AM NURSE PRACTITIONER PER DIEM Temperature 36.3 C (97.3 F) 10/25/2024 2:15 PM NURSE PRACTITIONER PER DIEM Respiratory Rate 20 11/24/2024 9:58 AM NURSE PRACTITIONER PER DIEM Oxygen Saturation 100% 10/25/2024 1:15 PM NURSE PRACTITIONER PER DIEM Inhaled Oxygen Concentration - - Weight 91.3 kg (201 lb 4.5 oz) 10/22/2024 8:29 P M NURSE PRACTITIONER PER DIEM Height 170.2 cm (5' 7.01 ) 11/24/2024 9:58 AM CS T Body Mass Index 31.52 10/22/2024 8:29 PM NURSE PRACTITIONER PER DIEM Plan of Treatment Not on file Medical Devices Implanted Type Area Steward/Stewardess Third Device Identifier Shelf Expiration Date Model / Serial / Lot [employer] Micra 2 Av Synchronous Leadless Ventricular Pacemaker [id number] - [id number] - [id number] Implanted:Qty: 1 on 10/24/2024 by Darien Jamil Jr., MD at [facility] [employer] 02/16/2026 [id number] / [id number] / Procedures Procedure Name Priority Date/Time Associated Diagnosis Comments DEVICE CHECK - IN OFFICE Routine 01/21/2025 9:26 AM CDT Cardiac pacemaker in situ Asystole (HCC) Syncope and collapse Symptomatic bradycardia POCT HEMOGLOBIN A1C Routine 11/24/2024 10:01 AM NURSE PRACTITIONER PER DIEM Type 2 diabetes mellitus with hyperglycemia, with long-term current use of insulin (CMS/HCC) EGFR Routine 10/25/2024 5:48 AM NURSE PRACTITIONER PER DIEM HEPATITIS PANEL, ACUTE Routine 10/23/2024 2:45 PM NURSE PRACTITIONER PER DIEM HM DIABETES EYE EXAM Routine 08/13/2024 9:40 [...] Read Routine (OP Routine) 12/05/2021 11:53 AM NURSE PRACTITIONER PER DIEM End stage renal disease (HCC) from Last [...] instructions provided. [facility] scheduled 04/22/2025. Yamel Cesar, RN us Dank Hicks MD [facility] PROC EDURES Final Result * POCT hemoglobin A1c (11/24/2024 10:01 AM NURSE PRACTITIONER PER DIEM) Pathologist [facility] Hemoglobin A1C, POC 4.9 4.0 - 5.6 % Blood 11/24/2024 10:0 1 AM NURSE PRACTITIONER PER DIEM us Bertha Pinto NP POINT OF CARE TEST ORDERA BLES Final Result * (ABNORMAL) eGFR (10/25/2024 5:48 AM NURSE PRACTITIONER PER DIEM) Pathologist [facility] eGFR 9(L) >=60 mL/min/1. 73 m2 Comment: [...] last reviewed 2021. Blood 10/25/2024 5:48 AM NURSE PRACTITIONER PER DIEM 10/25/2024 6:03 AM NURSE PRACTITIONER PER DIEM us Raisa Scherer NP LAB BLOOD ORDERABLES Jeaneth mari Result [facility] [address] Department [place] [address] * Hepatitis panel, acute Blood (10/23/2024 2:45 PM NURSE PRACTITIONER PER DIEM) Hep A IgM Nonreactive Nonreactive Comment: Interpretive Data: If Hep A IgM Ab is reported as Equivocal, a new sample should be drawn in two weeks for testing. Current interpretive data was last revised on 20. Hep B core IgM Nonreactive Nonreactive [facility] Comment: Interpretive Data If HepB Core IgM Ab is reported as Equivocal, a new sample should be drawn in two weeks for testing. Current interpretive data was last revised on 20. Hep C Ab Nonreactive Nonreactive [facility] Comment: Interpretive Data Nonreactive: Antibodies to HCV [...] revised on 2020. HepBsAg Nonreactive Nonreactive [facility] Blood 10/23/2024 2:45 PM NURSE PRACTITIONER PER DIEM 10/23/2024 2:46 PM NURSE PRACTITIONER PER DIEM Sherrill Christianson MD LAB MICROBIOLOGY - GENERAL ORDERABLES Final Result Performing Organization Address [facility] Co de Phone Number [facility] [place] [address] Department [place] [address] * (ABNORMAL) DIABETES EYE EXAM (08/13/2024 9:40 AM CDT) Historical Provider HEALTH MAINTENANCE Edited Result - Final * (ABNORMAL) Albumin Creatinine Ratio, Urine (03/10/2024 8:46 AM CDT) Albumin Ur 3,169.5 mg/L Comment: Interpretive Data No reference range established. Current interpretive data was last revised 2019. Creatinine Ur 47.7 mg/dL [facility] Comment: Interpretive Data No reference range established. Current interpretive data was last revised 2019. Albumin Creatinine Ratio, Ur 6,645(H) 1 - 29 mg/g [facility] Urine 03/10/2024 8:46 AM CDT 03/11/2024 9:11 AM CDT Bertha Pinto NP LAB URINE ORDERABLES Jeaneth l Result Performing Organization Address City/[facility] Co de Phone Number [facility] [place] [address] [place] [address] * (ABNORMAL) Lipid panel (03/03/2024 9:29 AM [...] LAB BLOOD ORDERABLES Jeaneth l Result [facility] [address] Department [place] [address] * CT Abdomen Pelvis WO Contrast (12/05/2021 11:53 AM NURSE PRACTITIONER PER DIEM) Anatomical Region Laterality Modality Body N/A Computed Tomogra phy 12/05/2021 12:0 4 PM NURSE PRACTITIONER PER DIEM Impressions 12/05/2021 12:04 PM NURSE PRACTITIONER PER DIEM Bone windows show no suspicious lytic or blastic lesions. IMPRESSION: 1. 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 2. 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 Electronically signed by: yRan Cameron M.D. Narrative 12/05/2021 12:04 PM NURSE PRACTITIONER PER DIEM EXAMINATION: Computed tomography of the abdomen/pelvis without [...] adeniform shape. There is atrophy of both [place] kidneys. Adjacent fat stranding is likely related [...] adeniform shape. There is atrophy of both [place] kidneys. Adjacent fat stranding is likely related [...] MEDICARE FOR LIFE FOR LIFE MEDICARE MEDICARE [employer] Care Teams Steward/Stewardess Smoke Room Relationship Specialty Start Date End Date Mariza Carrion MD [facility] [address] PCP - General Family Practice 03/05/23 Efren Hoyos MD Referring Physician Ophthalmology 06/16/19 Dank Hicks MD [address] [place] [address] Consulting Physician Cardiology 10/11/21
--- OUTSIDE RECORDS SUMMARY | 2025-03-10 06:55 | XMS_ITS | Clinical Summary ---
Author Organization Formerly [facility] Address [address] [place] [phone] Care Team Providers Care Sew Out Operator Name Role Phone Efren Hoyos MD Unavailable Dank Hicks MD Unavailable [phone] Mariza Carrion MD Primary Care Provider Allergies [...] with long-term current use of insulin ([facility]) Change sensor every 14 days [...] with long-term current use of insulin ([facility]) Use pads 5 times daily [...] 12/09/2019 Assessment & Plan (09/03/2023 9:28 AM IRIDOLOGIST): Chronic problem. [facility] [place]: //Saturdays. LUE fistula. Assessment & Plan (03/05/2023 9:59 AM CDT): Chronic problem. [facility] [place]: //Saturdays. LUE fistula. ESRD on dialysis 05/22/2019 Hyperlipidemia associated with type 2 diabetes fouzia victoria 05/22/2019 Assessment & Plan (11/24/2024 10:10 AM IRIDOLOGIST): Chronic problem. Controlled on current Atorvastatin 20mg. Last lipid panel: 03/03/24 LDL=33, TG=75. Assessment & Plan (03/03/2024 8:45 AM CDT): Chronic problem. Controlled on current Atorvastatin 20mg. Last lipid panel: 03/05/23 LDL=57, RS=906. Will update labs today. Does not mychart. Verified phone #/address to contact re: results. Assessment & Plan (09/03/2023 9:28 AM IRIDOLOGIST): Chronic problem. Controlled on current Atorvastatin 20mg. Last lipid panel: 03/05/23 LDL=57, TV=896. Assessment & Plan (03/05/2023 9:53 AM CDT): Chronic problem. Controlled on current Atorvastatin 20mg. Last lipid panel: 12/05/21 LDL=36, DI=239. Will update labs today. Verified phone #/address to contact re: results. Assessment & Plan (11/02/2022 2:47 PM IRIDOLOGIST): Chronic, well controlled Low fat Low cholesterol [...] Lipitor Assessment & Plan (09/07/2020 2:26 PM IRIDOLOGIST): Goal of treatment , LDL cholesterol less [...] panel Assessment & Plan (12/09/2019 2:03 PM IRIDOLOGIST): Very high TG Add Vascepa Assessment & [...] statin therapy Coronary artery disease invo [place] coronary artery of [place] heart without angina pectoris 10/04/2017 Hx of CABG 10/04/2017 Class 2 severe obesity due t o excess calories with serious comorbidity and body mass index (BMI) of 38.0 to 38.9 in adult 05/22/2017 Assessment & Plan (10/24/2018 12:58 PM IRIDOLOGIST): Making progress with diet efforts. Continue Assessment & Plan (02/08/2018 11:01 AM CDT): Importance of following diet and exercising discussed. Hypertension associated with diabetes 05/22/2017 Assessment & Plan (11/24/2024 10:11 AM IRIDOLOGIST): Chronic problem. Controlled on current losartan 100mg daily, amlodipine 10mg daily Assessment & Plan (03/03/2024 8:45 AM CDT): Chronic problem. BP elevated upon arrival. Controlled on current Carvedilol 25mg bid, losartan 100mg daily. No changes at this time. Will update labs today. Does not mychart. Verified phone #/address to contact re: results. Assessment & Plan (09/03/2023 9:28 AM IRIDOLOGIST): Chronic problem. BP elevated upon arrival. Controlled [...] renal Assessment & Plan (10/24/2018 12:57 PM IRIDOLOGIST): Controlled. Continue current medication plan and follow up with cardiology Assessment & Plan (06/18/2018 2:30 PM CDT): BP controlled on current medication plan. Continue follow up with nephrology Assessment & Plan (02/08/2018 11:00 AM CDT): Continue same medication Assessment & Plan (12/11/2017 10:24 AM IRIDOLOGIST): Goal blood pressure is less than 140/85 [...] mellitus Assessment & Plan (11/24/2024 10:16 AM IRIDOLOGIST): Chronic problem, controlled on current regimen. A1c [...] daily for skin breakdown and infection (sees housekeeper regularly). Assessment & Plan (03/03/2024 9:19 AM [...] daily for skin breakdown and infection (sees housekeeper regularly). Assessment & Plan (09/03/2023 9:27 AM IRIDOLOGIST): Chronic problem, controlled on current regimen. A1c [...] daily for skin breakdown and infection (sees housekeeper regularly). Assessment & Plan (03/05/2023 10:13 AM CDT): Chronic problem, controlled on current regimen. Current medications: Trulicity 1.5mg weekly Lantus 6 units every morning Humalog 4 units before meals For sugars over 160: take 6 units For sugars over 200: take 8 units Seen by [facility] every 4-5 mos; letter sent to get [...] daily for skin breakdown and infection (sees housekeeper regularly). Will update labs today. Verified phone #/address to contact re: results. Assessment & Plan (11/02/2022 2:43 PM IRIDOLOGIST): Well controlled, with risk of hypoglycemia Insuli [...] Ross Assessment & Plan (09/07/2020 2:26 PM IRIDOLOGIST): Hba1c was Lab Results Component Value Date [...] Trulicity. Assessment & Plan (12/09/2019 2:03 PM IRIDOLOGIST): Your Hba1c today was: Lab Results Component Value Date HGBA1C 9.3 12/09/2019 meaning a 3 month average sugar of : 224 Your goal hba1c is under 7.0 to prevent care home diabetes complications ( eye , kidney and [...] hypoglycemia. Assessment & Plan (10/24/2018 1:00 PM IRIDOLOGIST): Stable BG pattern 100-140 reported since last adjustment to plan. No change today. BG goals reviewed. Advised to lower Lantus by 2 units if FBG are < 100 x 2 days/wk. For planned activity, reduce Humalog dose by 1/2 at preceding meal. Assessment & Plan (09/19/2018 11:11 AM IRIDOLOGIST): Your Hba1c today was: Lab Results Component Value Date HGBA1C 5.1 09/19/2018 meaning a 3 month average sugar of : 81 Your goal hba1c is under 7.0 to prevent care home diabetes complications ( eye , kidney and [...] time. Assessment & Plan (12/11/2017 10:47 AM IRIDOLOGIST): Hba1c was .5.4 Today, 1800 calorie, consistent [...] 05/22/2019 Assessment & Plan (09/19/2018 11:20 AM IRIDOLOGIST): Prevention and treatment of hypoglycemia were discussed [...] therapy Assessment & Plan (10/24/2018 12:57 PM IRIDOLOGIST): Check lipid panel Assessment & Plan (06/18/2018 2:31 PM CDT): Continue statin therapy Assessment & Plan (02/08/2018 11:00 AM CDT): Continue atorvastatin Assessment & Plan (12/11/2017 10:45 AM IRIDOLOGIST): Goal of treatment , LDL cholesterol less [...] Description 01/21/2025 9:30 AM CDT Ancillary Procedure [facility] Cardiology [address] [place] [phone] Cardiac pacemaker in situ; Asystole (HCC); Syncope and collapse; Symptomatic bradycardia 01/19/2025 Telephone [facility] Cardiology [address] [place] [address] [place] [phone] Dank Hicks MD 01/05/2025 Telephone [facility] Diabetes and Endocrinology [address] [place] [phone] Bertha Pinto NP Release of Information 12/30/2024 Telephone [facility] Cardiology [address] [place] [address] [place] [phone] Dank Hicks MD 12/22/2024 Orders Only [facility] Cardiology [address] [place] [address] [place] [phone] Curt Grady MD from Last 3 Months Surgical History Surgery [...] drink = 0.6 oz pur e alcohol) [facility] Utilities Answer Date Recorded In the past 12 months has e [employer], gas, oil, or water [employer] threatened to shut off services in your [...] often do you attend chur ch or buddhist services? Never 10/23/2024 Do you belong to [...] were you homeless or living in a group home (including now)? No 10/23/2024 Personal Safety Answer Date Recorded Have you ever been in or are you currently in a harmful physical or emotional relationship or is someone making you feel afraid or unsafe? Denies 10/22/2024 Sex and Gender Information Value Date Recorded Sex Assigned at Not on file Legal Sex Male 7:27 PM IRIDOLOGIST Gender Identity Not on file Sexual Orientation Not on file Obstetrics History Last Filed Vital Signs Vital Sign Reading Time Taken Comments Blood Pressure 102/58 11/24/2024 9:58 AM IRIDOLOGIST Pulse 75 11/24/2024 9:58 AM IRIDOLOGIST Temperature 36.3 C (97.3 F) 10/25/2024 2:15 PM IRIDOLOGIST Respiratory Rate 20 11/24/2024 9:58 AM IRIDOLOGIST Oxygen Saturation 100% 10/25/2024 1:15 PM IRIDOLOGIST Inhaled Oxygen Concentration - - Weight 91.3 kg (201 lb 4.5 oz) 10/22/2024 8:29 P M IRIDOLOGIST Height 170.2 cm (5' 7.01 ) 11/24/2024 9:58 AM CS T Body Mass Index 31.52 10/22/2024 8:29 PM IRIDOLOGIST Plan of Treatment Health Maintenance Due Date [...] 10/23/2024, 022 Medical Devices Implanted Type Area Senior Database Administrator Device Identifier Shelf Expiration Date Model / Serial / Lot [employer] Micra 2 Av Synchronous Leadless Ventricular Pacemaker [id number] - [id number] - [id number] Implanted:Qty: 1 on 10/24/2024 by Darien Jamil Jr., MD at [facility] [employer] 02/16/2026 [id number] / [id number] / Procedures Procedure Name Priority Date/Time Associated Diagnosis Comments DEVICE CHECK - IN OFFICE Routine 01/21/2025 9:26 AM CDT Cardiac pacemaker in situ Asystole (HCC) Syncope and collapse Symptomatic bradycardia POCT HEMOGLOBIN A1C Routine 11/24/2024 10:01 AM IRIDOLOGIST Type 2 diabetes mellitus with hyperglycemia, with long-term current use of insulin (CMS/HCC) EGFR Routine 10/25/2024 5:48 AM IRIDOLOGIST HEPATITIS PANEL, ACUTE Routine 10/23/2024 2:45 PM IRIDOLOGIST HM DIABETES EYE EXAM Routine 08/13/2024 9:40 [...] Read Routine (OP Routine) 12/05/2021 11:53 AM IRIDOLOGIST End stage renal disease (HCC) from Last [...] provided. [facility] scheduled 04/22/2025. Yamel Cesar, RN Dank Hicks MD [facility] CARDIAC SERVICES PROC EDURES Final Result * POCT hemoglobin A1c (11/24/2024 10:01 AM IRIDOLOGIST) [facility] Hemoglobin A1C, POC 4.9 4.0 - 5.6 % Blood 11/24/2024 10:0 1 AM IRIDOLOGIST us Bertha Pinto NP POINT OF CARE TEST ORDERA BLES Final Result * (ABNORMAL) eGFR (10/25/2024 5:48 AM IRIDOLOGIST) Pathologist [facility] eGFR 9(L) >=60 mL/min/1. 73 m2 Comment: [...] last reviewed 2021. Blood 10/25/2024 5:48 AM IRIDOLOGIST 10/25/2024 6:03 AM IRIDOLOGIST us Raisa Scherer NP LAB BLOOD ORDERABLES Jeaneth mari Result [facility] [address] Department [place] [address] * Hepatitis panel, acute Blood (10/23/2024 2:45 PM IRIDOLOGIST) Hep A IgM Nonreactive Nonreactive Comment: Interpretive Data: If Hep A IgM Ab is reported as Equivocal, a new sample should be drawn in two weeks for testing. Current interpretive data was last revised on 20. Hep B core IgM Nonreactive Nonreactive [facility] Comment: Interpretive Data If HepB Core IgM Ab is reported as Equivocal, a new sample should be drawn in two weeks for testing. Current interpretive data was last revised on 20. Hep C Ab Nonreactive Nonreactive [facility] Comment: Interpretive Data Nonreactive: Antibodies [...] last revised on 2020. HepBsAg Nonreactive Nonreactive [facility] Blood 10/23/2024 2:45 PM IRIDOLOGIST 10/23/2024 2:46 PM IRIDOLOGIST Sherrill Christianson MD LAB MICROBIOLOGY - GENERAL ORDERABLES Final Result Performing Organization Address City/[facility] Co de Phone Number NIDIA [address] Department [place] [address] * (ABNORMAL) DIABETES EYE EXAM (08/13/2024 9:40 AM CDT) Historical Provider HEALTH MAINTENANCE Edited Result - Final * (ABNORMAL) Albumin Creatinine Ratio, Urine (03/10/2024 8:46 AM CDT) Albumin Ur 3,169.5 mg/L Comment: Interpretive Data No reference range established. Current interpretive data was last revised 2019. Creatinine Ur 47.7 mg/dL [facility] Comment: Interpretive Data No reference range established. Current interpretive data was last revised 2019. Albumin Creatinine Ratio, Ur 6,645(H) 1 - 29 mg/g [facility] Urine 03/10/2024 8:46 AM CDT 03/11/2024 9:11 AM CDT Bertha Pinto NP LAB URINE ORDERABLES Jeaneth l Result Performing Organization Address [facility] Co de Phone Number NIDIA [place] [address] Department [place] [address] * (ABNORMAL) Lipid panel (03/03/2024 9:29 AM [...] LAB BLOOD ORDERABLES Jeaneth l Result [facility] [address] Department [place] [address] * CT Abdomen Pelvis WO Contrast (12/05/2021 11:53 AM IRIDOLOGIST) Anatomical Region Laterality Modality Body N/A Computed Tomogra phy 12/05/2021 12:0 4 PM IRIDOLOGIST Impressions 12/05/2021 12:04 PM IRIDOLOGIST Bone windows show no suspicious lytic or blastic lesions. IMPRESSION: 1. 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 2. 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 Electronically signed by: Ryan Cameron M.D. Narrative 12/05/2021 12:04 PM IRIDOLOGIST EXAMINATION: Computed tomography of the abdomen/pelvis without [...] adeniform shape. There is atrophy of both [place] kidneys. Adjacent fat stranding is likely related [...] adeniform shape. There is atrophy of both [place] kidneys. Adjacent fat stranding is likely related [...] Recently Relevant to Health Maintenance Insurance MEDICARE [facility] Address: [id number] [place] [address] FOR LIFE FOR LIFE MEDICARE MEDICARE [employer] Care Teams Sew Out Operator Relationship Specialty Start Date End Date Mariza Carrion MD [address] [facility] [address] [place] [address] PCP - General Family Practice 03/05/23 Efren Hoyos MD Referring Physician Ophthalmology 06/16/19 Dank Hicks MD [address] [address] Consulting Physician Cardiology 10/11/21
--- OUTSIDE RECORDS SUMMARY | 2025-03-10 06:55 | XMS_ITS | Clinical Summary ---
Author Organization [facility] Facility Address [address] [address] Care Team Providers Care Cementer Name Role Phone Murali Dawkins MD Primary [...] age to complete this topic Insurance Medicare [facility] Care Teams Cementer Relationship Specialty Start Date End Date Murali Dawkins MD [address] [place] [address] PCP - General Family Medicine 10/28/24
[2025-03-10] MEDS: FUROSEMIDE INJ 40 MG/4 ML VIAL IV PUSH (07:15)
[2025-03-10 07:23] LABS: Basophils Absolute Auto 0.1 K/mm3 (0.0-0.1); Eosinophils Absolute Auto 0.1 K/mm3 (0-0.3); Eosinophils Percent Auto 1.7 % (0-4.4); Hematocrit 37.2 % (42.0-52.0); Hemoglobin 10.5 g/dL (14.0-18.0); Immature Granulocyte Absolute 0.03 K/mm3 (0.00-0.031); Immature Granulocyte Percent A 0.5 % (0-0.5); Lymphocytes Absolute Auto 0.41 K/mm3 (0.9-3.2); Lymphocytes Percent Auto 6.9 % (18.3-44.2); Mean Corpuscular HGB Conc 28.2 g/dl (32-36); Mean Corpuscular Hemoglobin 26.9 pg (26-34); Mean Corpuscular Volume 95.1 fl (80-100); Mean Platelet Volume 10.3 fl (7.4-10.4); Monocytes Absolute Auto 0.5 K/mm3 (0.1-0.6); Monocytes Percent Auto 8.5 % (2.6-8.5); Neutrophils Absolute Auto 4.8 K/mm3 (1.3-6.7); Neutrophils Percent Auto 81.4 % (45.5-73.1); Platelet Count Result 223 k/mm3 (150-375); Red Blood Count 3.91 M/mm3 (4.6-6.20); Red Cell Distribution Width 18.8 % (11.5-14.5)
[2025-03-10 07:33] LABS: Alanine Aminotransferase 11 U/L (6-50); Albumin Level 3.9 g/dL (3.5-5.1); Alkaline Phosphatase 54 U/L (38-126); Anion Gap 9 mmol/L (4-12); Aspartate Amino Transferase 17 U/L (17-59); Bilirubin,Total 0.4 mg/dL (0.2-1.3); Blood Urea Nitrogen 38 mg/dL (9-20); Calcium 10.7 mg/dL (8.4-10.2); Carbon Dioxide 32 mmol/L (22-30); Chloride 91 mmol/L (98-107); Estimated CRCL calculation 10 ml/min; Estimated Glomerular Filt Rate 9; Glucose 132 mg/dL (65-110); Potassium 4.3 mmol/L (3.4-5.0); Sodium 132 mmol/L (137-145)
[2025-03-10 07:46] LABS: Anisocytosis 1+; Hypochromasia 1+; Macrocytosis 1+ (NORMAL); Ovalocytes 1+; Platelet Estimate Adequate (Adequate); Schistocytes None Seen
[2025-03-10 07:59] LABS: Influenza A QL RT-PCR Negative (Negative); Influenza B QL RT-PCR Negative (Negative); RSV RNA, RT-PCR Negative (Negative); SARS-CoV-2 RNA PCR Negative (Negative)
[2025-03-10 08:09] LABS: NT Pro B Type Natriuretic Pept > 30000 pg/mL (19.9-100)
[2025-03-10 08:39] LABS: Add Urine Microscopic? YES; Appearance Urine Clear (Clear); Bacteria Urine None Seen /hpf; Bilirubin Urine Negative (Negative); Blood Urine Negative (Negative); Color Urine Yellow (Yellow); Glucose Urine UA 1+ mg/dL (Negative); Ketones Urine Negative (Negative); Leukocyte Esterase Ur Negative LEU/UL (Negative); Nitrate Urine Negative (Negative); Non Pathogenic Casts 0-2; Protein Urine 4+ mg/dL (Negative); RBC Urine 0-2 /hpf (0-2); Specific Grav Ur 1.014 (1.001-1.035); Squamous Epithelial Cell Urine None Seen /hpf (Few); Urobilinogen Urine 0.2 mg/dL (<2.0); WBC Urine 0-5 /hpf (0-3); pH Urine 7.5 (5.0-9.0)
--- NOTE | 2025-03-10 09:58 | PC.NURSE ---
This RN called [facility], spoke with Carmen and informed her pt is being admitted to this hospital
--- NOTE | 2025-03-10 10:00 | PC.NURSE ---
This RN called and spoke with pt daughter Tiarra and informed her pt is being admitted to this hospital
[2025-03-10 10:22] LABS: Hepatitis B Surface Antigen Negative (Negative)
[2025-03-10 11:45] LABS: Hepatitis B Surface Anti Res Indeterminate
--- NOTE | 2025-03-10 14:30 | P.CONNP_ITS ---
Assessment and Plan Assessment and plan (1) End stage renal disease: Code(s): N18.6 - End stage renal disease Status: Chronic Assessment and Plan: * HD today * continue T/T/S outpatient dialysis schedule while hospitalized * follow electrolytes, volume status, and clearance (2) Acute respiratory failure with hypoxia: Code(s): J96.01 - Acute respiratory failure with hypoxia Status: Acute Assessment and Plan: * due to several issues: * mild pulmonary edema * chronic CHF * history of COPD * reactive airway disease * bronchitis * other(?) * fluid removal/ultrafiltration with dialysis * supplemental oxygen as needed * follow respiratory status (3) Generalized weakness: Code(s): R53.1 - Weakness Status: Acute Assessment and Plan: * CT scan of head negative for acute pathology * Cervical CT earlier this month noted: * moderate neuroforaminal narrowing on left at C2 4-5 and on the right at C2- 3 * erosive changes at C3-C4 and C4-C5 disc stasis these appear chronic * Neurosurgery was consulted last admission plan for cervical MRI as an outpatient basis at a MRI compatible facility * continue supportive therapy (4) Atrial fibrillation: Code(s): I48.91 - Unspecified atrial fibrillation Status: Chronic Assessment and Plan: * rate control strategy * restart anticoagulation(?) * apparently previously held due to issues with GI bleeding (5) Anemia: Code(s): D64.9 - Anemia, unspecified Status: Chronic Assessment and Plan: * due to ESRD * Epogen with HD * follow trend of H/H (6) Hypercalcemia: Code(s): E83.52 - Hypercalcemia Status: Acute Assessment and Plan: * noted on last hospitalization as well * not clear on etiology * sensipar/cinacalcet usually causes hypocalcemia * possibly due to prolonged immobilization/bed bound state? * adjusting calcium bath with dialysis to compensate (7) Essential (primary) hypertension: Code(s): I10 - Essential (primary) hypertension Status: Chronic Assessment and Plan: * running a bit high * fluid removal with HD may help * resume home medications * follow trend of hemodynamics (8) IDDM (insulin dependent diabetes mellitus): Status: Chronic Assessment and Plan: * follow accu-cheks * glycemic control per hospitalist I will continue follow the patient with you while he remains hospitalized and make further recommendations as needed. Thank you for allowing me to participate in the care of this patient. L History of Present Illness Reason for Consult Consult date: 03/10/25 Reason for consult: end stage renal disease Chief Complaint Chief complaint: ESRD Needing HD History of Present Illness Narrative: The patient is a 79-year-old male with a past medical history as outlined below who presented to the ER from his nursing facility due to complaints of worsening shortness of breath since this morning, generalized weakness, and congestion. Along with the symptoms, he also felt that he was having double vision in association with slurred speech and worsening upper extremity weakness/tremors. There was also report that he had altered mental status but I have been unable to verify this. He was scheduled to go to his outpatient dialysis center for his scheduled dialysis treatment earlier today but was diverted to the emergency room due to these complaints/symptoms. Interestingly, these are the same symptoms that he had approximately a month ago when he presented to the emergency room and was admitted to the hospital at that time. Workup and evaluation emergency room demonstrated the patient to be hemodynamically stable if not a bit hypertensive and in no acute distress. Routine blood test demonstrated CBC with a white cell count of 7, hemoglobin 10.5, platelet count of 223 and a chemistry panel that is consistent with his known history of end-stage renal disease without any critical electrolyte abnormalities. His blood sugar is 132, his proBNP was greater than 30,000, and viral testing for influenza, RSV, and COVID were negative. His LFTs were within normal limits and his urinalysis was negative for urinary tract infection as well. 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 Given these constellation of symptoms along with the fact that he was due for dialysis today, he was admitted to hospital for further evaluation and therapy. Since his admission, initially his double vision resolved by the time of his arrival to the ER but then apparently recurred after admission to the floor. He also reports pain in his lower extremities as well. The patient was seen earlier this morning and currently while in dialysis. This is a 79-year-old male who presents to the ED from skilled nursing for worsening shortness of breath generalized weakness and congestion. He also felt he had double vision earlier today also had slurred speech. He is scheduled to go for dialysis this a.m.. He has been compliant with his dialysis session. Renal consultation was requested due to his end-stage renal disease. The patient normally dialyzes on a Sunday, , and Sunday dialysis schedule at [facility] under the care of Dr. Brett Tang. From a dialysis perspective, the patient usually does quite well with relative stability in his monthly labs although his fluid gains in between dialysis treatments can be an issue/quite large at times. His last dialysis treatment was on Sunday (03/07/25). From review of his outpatient dialysis records, his last treatment was uneventful and they were able to get him down to his dry weight without any issues or problems. He is due for dialysis today Currently, at the time my visit, he is tolerating dialysis without any issues or concerns (he was seen on HD at 2:20PM). Review of Systems 2 Review of Systems: As per HPI. PENDING SALE TO [facility] Past Medical History Medical History (Updated 03/10/25 @ 18:34 by Martina Booth MD) Diabetic polyneuropathy Diabetic peripheral neuropathy Insomnia History of nephrolithiasis Chronic neck and back pain Atrial fibrillation Diabetes Anemia Bilateral shoulder pain Sinus pause (~09/2024) Obstructive sleep apnea Intolerant to CPAP Insulin dependent type 2 diabetes mellitus (~2009) Chronic obstructive pulmonary disease Coronary artery disease Benign prostatic hyperplasia Peripheral vascular disease (~03/2023) Internal hemorrhoid, bleeding End-stage renal disease on hemodialysis DVT dialysis Sunday History of colon polyps Environmental allergies Vitamin D deficiency Dyslipidemia Essential (primary) hypertension Surgical History Surgical History Status post cataract extraction of both eyes with insertion of intraocular lens History of colonoscopy with polypectomy History of cardiac pacemaker (~10/2024) Medtronic pacemaker placed due to symptomatic sinus pauses causing syncope performed at [facility] History of hemorrhoidectomy (~01/12/24) Anorectal evaluation under anesthesia and excisional hemorrhoidectomy x3 12/14/23 SAW S/P peripheral artery angioplasty (~03/2023) status post balloon angioplasty of bilateral common and external iliac arteries status post left iliofemoral endarterectomy Arteriovenous fistula of left upper extremity (~2017) History of appendectomy (~1962) History of coronary artery bypass graft (~2013) Family History Family History Mother Diabetes mellitus Acute myocardial infarction Family history of congestive heart failure Father Hypertension Social History Social History Social History: The patient is . He and his brother live together prior to his recent hospitalization and placement in to [facility]. He is retired after 26 years of serving in the [employer]. He has 4 children. He used to smoke 1.5-2 packs of cigarettes per day but quit smoking in approximately 2009. He will on a rare occasion drink an alcoholic beverage maybe 2 to 3 times a year. He denies illicit substance use. Surrogate medical decision maker: Wilian Morrissey, sibling. Code status: Full code. Caffeine- daily Smoking packs per day: 1.5 Smoking cigarettes per day: 30.0 Years smoked: 44 Smoking pack-years: 66.00 Smoking status: Never smoker Second hand tobacco smoke exposure: No Alcohol intake: never Alcohol use details: Maybe 2-3 per year Substance use: never Substance use type: does not use Do You Feel Safe in your Home?: Yes Lack of Transportation: No Lack of Food: Never True Current Housing: I Have Housing Concerned About Future Housing: No Difficulty Paying Gas/Electric Bills: No Difficulty Paying for Meds: No Currently Unemployed: No Education: High School Diploma/GED Difficulty w/ Childcare or Family Care: No Living arrangements: with family Occupation/Education: retired Additional occupation/education comments: Retired from the [employer]. Spiritual care concerns: No Agree to blood products: Yes Meds Home Medications and Allergies Home Medications ?Medication ?Instructions ?Recorded ?Confirmed ?Type aspirin 81 mg tablet,delayed 81 mg PO DAILY 10/31/21 03/10/25 History release carvedilol 25 mg tablet 25 mg PO BID 10/31/21 03/10/25 History insulin lispro 100 unit/mL 4 unit subcut .TIDAC 10/31/21 03/10/25 History subcutaneous pen loratadine 10 mg tablet (Claritin) 10 mg PO DAILY 10/31/21 03/10/25 History insulin glargine 100 unit/mL (3 6 unit subcut QPM 11/07/23 03/10/25 History mL) subcutaneous pen (Lantus Solostar U-100 Insulin) cinacalcet 90 mg PO DAILY 12/12/23 03/10/25 History atorvastatin 20 mg tablet 20 mg PO HS 12/21/24 03/10/25 History finasteride 5 mg tablet (Proscar) 5 mg PO QAM #30 tabs 12/23/24 03/10/25 Rx furosemide 80 mg tablet 80 mg PO BID #60 tabs 12/23/24 03/10/25 Rx sevelamer carbonate 0.8 gram oral 3.2 g PO TIDWM 30 days #60 ea 12/23/24 03/10/25 Rx powder packet tamsulosin 0.4 mg capsule 0.4 mg PO QHS #30 caps 12/23/24 03/10/25 Rx acetaminophen 325 mg tablet 650 mg (2 x 325 mg) PO Q4H PRN 01/10/25 03/10/25 Rx Mild Pain (1-3) Or Fever #60 tabs pentoxifylline 400 mg 400 mg PO QPM 01/29/25 03/10/25 History tablet,extended release acetaminophen 300 mg-codeine 30 mg 1 tablet PO Q6H PRN pain, severe 02/16/25 03/10/25 History tablet amlodipine 10 mg tablet 10 mg PO DAILY 02/16/25 03/10/25 History bisacodyl 10 mg rectal suppository 10 mg RECTAL DAILY PRN constipation 02/16/25 03/10/25 History (Laxative (bisacodyl)) gabapentin 100 mg capsule 100 mg PO TID 02/16/25 03/10/25 History liraglutide 0.6 mg/0.1 mL (18 mg/3 1.2 mg subcut DAILY 02/16/25 03/10/25 History mL) subcutaneous pen injector loratadine 10 mg capsule (Allergy 10 mg PO DAILY PRN itching 02/16/25 03/10/25 History Relief (loratadine)) magnesium citrate (Citroma oral 296 ml PO .AM PRN constipation 02/16/25 03/10/25 History solution) magnesium hydroxide 400 mg/5 mL 30 ml PO HS PRN constipation 02/16/25 03/10/25 History oral suspension (Milk of Magnesia) sodium phosphates 19 gram-7 118 ml RECTAL DAILY PRN 02/16/25 03/10/25 History gram/118 mL enema (Fleet Enema) constipation vitamin B complex 1 cap PO DAILY 02/16/25 03/10/25 History acetaminophen 325 mg tablet 650 mg PO TID 03/10/25 03/10/25 History baclofen 5 mg tablet 5 mg PO TID 03/10/25 03/10/25 History cyclobenzaprine 10 mg tablet 10 mg PO Q8H PRN muscle spasm 03/10/25 03/10/25 History insulin glargine 100 unit/mL (3 6 unit subcut DAILY 03/10/25 03/10/25 History mL) subcutaneous pen (Lantus Solostar U-100 Insulin) insulin lispro 100 unit/mL 4 unit subcut DAILY 03/10/25 03/10/25 History subcutaneous pen, sensor (Humalog Tempo Pen (U-100) Insulin) ipratropium 20 mcg-albuterol 100 1 puff inhalation Q6H PRN 03/10/25 03/10/25 History mcg/actuation mist for inhalation shortness of breath or wheezing (Combivent Respimat) loperamide 2 mg capsule 2 mg PO Q4H PRN loose stool 03/10/25 03/10/25 History losartan 100 mg tablet 100 mg PO PRN PRN blood pressure 03/10/25 03/10/25 History melatonin 3 mg tablet 3 mg PO HS 03/10/25 03/10/25 History tramadol 50 mg tablet 50 mg PO BID 03/10/25 03/10/25 History umeclidinium 62.5 mcg/actuation 2 inh inhalation DAILY 03/10/25 03/10/25 History blister powder for inhalation (Incruse Ellipta) Allergies Allergy/AdvReac Type Severity Reaction Status Date / Time No Known Allergies Allergy Verified 03/10/25 07:55 Vital Signs Vital Signs Temp Pulse Resp BP Pulse Ox O2 Del Method O2 Flow Rate 03/10/25 14:30 83 179/83 H 03/10/25 14:15 75 178/92 H 03/10/25 14:12 75 168/92 H 03/10/25 13:53 1 03/10/25 13:53 98.4 F 77 18 186/84 H 03/10/25 10:03 97.5 F L 78 16 175/75 H 95 03/10/25 09:16 60 12 165/69 H 95 03/10/25 09:02 70 12 164/61 H 95 03/10/25 08:33 75 16 172/63 H 96 03/10/25 08:16 96 Nasal Cannula 1 03/10/25 08:14 78 15 170/70 H 95 03/10/25 08:14 78 03/10/25 08:03 81 15 170/70 H 99 03/10/25 07:31 72 12 173/82 H 96 03/10/25 07:10 75 14 184/76 H 95 03/10/25 06:15 98 F 73 14 159/90 H 97 Room Air Exam 2 Narrative: GENERAL APPEARANCE: elderly but well developed well nourished male in no acute distress HEENT: normocephalic, atraumatic, normal conjunctiva and sclera, nares patient NECK: no lymphadenopathy, thyromegaly, or JVD MOUTH: normal lips, teeth, and gums CARDIOVASCULAR: RRR, normal S1 and S2, no rub RESPIRATORY: coarse breath sounds with a few bibasilar crackles ABDOMEN: soft, nontender, nondistended, positive bowel sounds present EXTREMITIES: no evidence of cyanosis, clubbing; 1+ edema in UEs and LEs NEUROLOGICAL: alert and oriented x 3; CN II - XII intact bilaterally; no focal deficits noted Results Lab Results 03/10/25 07:09 03/10/25 07:09 Lab results: Most recent lab results Calcium 10.7 mg/dL (8.4-10.2) H 03/10/25 07:09
[2025-03-10] MEDS: HEPARIN SODIUM 1,000 UNITS/ML VIAL 1000 UNITS (15:12)
--- NOTE | 2025-03-10 15:38 | P.HP_ITS ---
H&P: HPI History of Present Illness Date/Time: 03/10/25 15:38 Chief Complaint: Generalized weakness bloody vision Narrative: This is a 79-year-old male who presents to the ED from care home for worsening shortness of breath generalized weakness and congestion. He also felt he had double vision earlier today also had slurred speech. He is scheduled to go for dialysis this a.m.. He has been compliant with his dialysis session. In the ED his vitals were stable except for mild hypertension. Laboratory evaluation showed WBC of 7 hemoglobin of 10.5 platelet of 223 sodium 132 potassium 4.3 chloride 91 bicarbonate 32 BUN 60 creatinine 6.2 blood sugar of 132. BNP more than 30,000 influenza RSV COVID swab was negative LFTs were normal. Urinalysis was negative for UTI. Chest x-ray showed bronchial wall thickening. CT head showed small old lacunar infarcts in the bilateral mid brain. No acute intracranial process. Age- related changes including moderate diffuse volume loss and moderate scattered white matter hyponatremia griffin consistent with chronic small-vessel ischemic disease and sinus disease was noted. He was recently admitted for similar complaint. CTA at that time showed no occlusion or significant stenosis. 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 Neuro surgical consultation at that time had decided to get possible cervical MRI at pacemaker compatible facility and not to pursue CT myelogram. He is admitted in this setting for further evaluation and management. Review of Systems Review of Systems: - CONSTITUTIONAL: Denies weight loss, fe kat and chills. - HEENT: Reports changes in vision and denies hearing - RESPIRATORY: Reports SOB and cough. - CV: Denies palpitations and CP. - GI: Denies abdominal pain, nausea, vom iting and diarrhea. - : Denies dysuria and urinary frequen cy. - MSK: Denies myalgia and joint pain. - SKIN: Denies rash and pruritus. - NEUROLOGICAL: Denies headache and sync ope. - PSYCHIATRIC: Denies recent changes in mood. Denies anxiety and depression. [facility] Past Medical History Medical History (Updated 03/10/25 @ 07:54 by Karli Grant MD) Bilateral shoulder pain Diabetic polyneuropathy Diabetes Coronary artery disease Chronic obstructive pulmonary disease Diabetic peripheral neuropathy Anemia Atrial fibrillation Chronic neck and back pain Insomnia History of nephrolithiasis Sinus pause (~09/2024) Obstructive sleep apnea Intolerant to CPAP Insulin dependent type 2 diabetes mellitus (~2009) Benign prostatic hyperplasia Peripheral vascular disease (~03/2023) Internal hemorrhoid, bleeding End-stage renal disease on hemodialysis DVT dialysis Sunday History of colon polyps Environmental allergies Vitamin D deficiency Dyslipidemia Essential (primary) hypertension Surgical History Surgical History History of cardiac pacemaker (~10/2024) Medtronic pacemaker placed due to symptomatic sinus pauses causing syncope performed at [facility] Status post cataract extraction of both eyes with insertion of intraocular lens History of colonoscopy with polypectomy History of hemorrhoidectomy (~01/12/24) Anorectal evaluation under anesthesia and excisional hemorrhoidectomy x3 12/14/23 SAW S/P peripheral artery angioplasty (~03/2023) status post balloon angioplasty of bilateral common and external iliac arteries status post left iliofemoral endarterectomy Arteriovenous fistula of left upper extremity (~2017) History of appendectomy (~1962) History of coronary artery bypass graft (~2013) Family History Family History Mother Diabetes mellitus Acute myocardial infarction Family history of congestive heart failure Father Hypertension Social History Social History Social History: The patient is . He and his brother live together prior to his recent hospitalization and placement in to [facility]. He is retired after 26 years of serving in the [employer]. He has 4 children. He used to smoke 1.5-2 packs of cigarettes per day but quit smoking in approximately 2009. He will on a rare occasion drink an alcoholic beverage maybe 2 to 3 times a year. He denies illicit substance use. Surrogate medical decision maker: Wilian Yuni, sibling. Code status: Full code. Caffeine- daily Smoking packs per day: 1.5 Smoking cigarettes per day: 30.0 Years smoked: 44 Smoking pack-years: 66.00 Smoking status: Never smoker Second hand tobacco smoke exposure: No Alcohol intake: never Alcohol use details: Maybe 2-3 per year Substance use: never Substance use type: does not use Do You Feel Safe in your Home?: Yes Lack of Transportation: No Lack of Food: Never True Current Housing: I Have Housing Concerned About Future Housing: No Difficulty Paying Gas/Electric Bills: No Difficulty Paying for Meds: No Currently Unemployed: No Education: High School Diploma/GED Difficulty w/ Childcare or Family Care: No Living arrangements: with family Occupation/Education: retired Additional occupation/education comments: Retired from the [employer]. Spiritual care concerns: No Agree to blood products: Yes Meds Home Medications and Allergies Home Medications ?Medication ?Instructions ?Recorded ?Confirmed ?Type aspirin 81 mg tablet,delayed 81 mg PO DAILY 10/31/21 03/10/25 History release carvedilol 25 mg tablet 25 mg PO BID 10/31/21 03/10/25 History insulin lispro 100 unit/mL 4 unit subcut .TIDAC 10/31/21 03/10/25 History subcutaneous pen loratadine 10 mg tablet (Claritin) 10 mg PO DAILY 10/31/21 03/10/25 History insulin glargine 100 unit/mL (3 6 unit subcut QPM 11/07/23 03/10/25 History mL) subcutaneous pen (Lantus Solostar U-100 Insulin) cinacalcet 90 mg PO DAILY 12/12/23 03/10/25 History atorvastatin 20 mg tablet 20 mg PO HS 12/21/24 03/10/25 History finasteride 5 mg tablet (Proscar) 5 mg PO QAM #30 tabs 12/23/24 03/10/25 Rx furosemide 80 mg tablet 80 mg PO BID #60 tabs 12/23/24 03/10/25 Rx sevelamer carbonate 0.8 gram oral 3.2 g PO TIDWM 30 days #60 ea 12/23/24 03/10/25 Rx powder packet tamsulosin 0.4 mg capsule 0.4 mg PO QHS #30 caps 12/23/24 03/10/25 Rx acetaminophen 325 mg tablet 650 mg (2 x 325 mg) PO Q4H PRN 01/10/25 03/10/25 Rx Mild Pain (1-3) Or Fever #60 tabs pentoxifylline 400 mg 400 mg PO QPM 01/29/25 03/10/25 History tablet,extended release acetaminophen 300 mg-codeine 30 mg 1 tablet PO Q6H PRN pain, severe 02/16/25 03/10/25 History tablet amlodipine 10 mg tablet 10 mg PO DAILY 02/16/25 03/10/25 History bisacodyl 10 mg rectal suppository 10 mg RECTAL DAILY PRN constipation 02/16/25 03/10/25 History (Laxative (bisacodyl)) gabapentin 100 mg capsule 100 mg PO TID 02/16/25 03/10/25 History liraglutide 0.6 mg/0.1 mL (18 mg/3 1.2 mg subcut DAILY 02/16/25 03/10/25 History mL) subcutaneous pen injector loratadine 10 mg capsule (Allergy 10 mg PO DAILY PRN itching 02/16/25 03/10/25 History Relief (loratadine)) magnesium citrate (Citroma oral 296 ml PO .AM PRN constipation 02/16/25 03/10/25 History solution) magnesium hydroxide 400 mg/5 mL 30 ml PO HS PRN constipation 02/16/25 03/10/25 History oral suspension (Milk of Magnesia) sodium phosphates 19 gram-7 118 ml RECTAL DAILY PRN 02/16/25 03/10/25 History gram/118 mL enema (Fleet Enema) constipation vitamin B complex 1 cap PO DAILY 02/16/25 03/10/25 History acetaminophen 325 mg tablet 650 mg PO TID 03/10/25 03/10/25 History baclofen 5 mg tablet 5 mg PO TID 03/10/25 03/10/25 History cyclobenzaprine 10 mg tablet 10 mg PO Q8H PRN muscle spasm 03/10/25 03/10/25 History insulin glargine 100 unit/mL (3 6 unit subcut DAILY 03/10/25 03/10/25 History mL) subcutaneous pen (Lantus Solostar U-100 Insulin) insulin lispro 100 unit/mL 4 unit subcut DAILY 03/10/25 03/10/25 History subcutaneous pen, sensor (Humalog Tempo Pen (U-100) Insulin) ipratropium 20 mcg-albuterol 100 1 puff inhalation Q6H PRN 03/10/25 03/10/25 History mcg/actuation mist for inhalation shortness of breath or wheezing (Combivent Respimat) loperamide 2 mg capsule 2 mg PO Q4H PRN loose stool 03/10/25 03/10/25 History losartan 100 mg tablet 100 mg PO PRN PRN blood pressure 03/10/25 03/10/25 History melatonin 3 mg tablet 3 mg PO HS 03/10/25 03/10/25 History tramadol 50 mg tablet 50 mg PO BID 03/10/25 03/10/25 History umeclidinium 62.5 mcg/actuation 2 inh inhalation DAILY 03/10/25 03/10/25 History blister powder for inhalation (Incruse Ellipta) Allergies Allergy/AdvReac Type Severity Reaction Status Date / Time No Known Allergies Allergy Verified 03/10/25 07:55 Vital Signs Vital Signs - 24 hr 03/10/25 06:15 03/10/25 07:10 03/10/25 07:31 Temperature 98 F Pulse Rate 73 75 72 Respiratory Rate 14 14 12 Blood Pressure 159/90 H 184/76 H 173/82 H Pulse Oximetry 97 95 96 Oxygen Delivery Room Air Oxygen Flow Rate 03/10/25 08:03 03/10/25 08:14 03/10/25 08:14 Temperature Pulse Rate 81 78 78 Respiratory Rate 15 15 Blood Pressure 170/70 H 170/70 H Pulse Oximetry 99 95 Oxygen Delivery Oxygen Flow Rate 03/10/25 08:16 03/10/25 08:33 03/10/25 09:02 Temperature Pulse Rate 75 70 Respiratory Rate 16 12 Blood Pressure 172/63 H 164/61 H Pulse Oximetry 96 96 95 Oxygen Delivery Nasal Cannula Oxygen Flow Rate 1 03/10/25 09:16 03/10/25 10:03 03/10/25 13:53 Temperature 97.5 F L 98.4 F Pulse Rate 60 78 77 Respiratory Rate 12 16 18 Blood Pressure 165/69 H 175/75 H 186/84 H Pulse Oximetry 95 95 Oxygen Delivery Oxygen Flow Rate 03/10/25 13:53 03/10/25 14:12 03/10/25 14:15 Temperature Pulse Rate 75 75 Respiratory Rate Blood Pressure 168/92 H 178/92 H Pulse Oximetry Oxygen Delivery Oxygen Flow Rate 1 03/10/25 14:30 03/10/25 14:45 03/10/25 15:00 Temperature Pulse Rate 83 77 79 Respiratory Rate Blood Pressure 179/83 H 168/88 H 172/89 H Pulse Oximetry Oxygen Delivery Oxygen Flow Rate 03/10/25 15:15 Temperature Pulse Rate 85 Respiratory Rate Blood Pressure 180/108 H Pulse Oximetry Oxygen Delivery Oxygen Flow Rate Exam Narrative: GENERAL: Pleasant, in no acute distress. Well-nourished. - EYES: EOMI. Anicteric. - HENT: Moist mucous membranes. - LUNGS: Coarse breath sound bilaterall y - CARDIOVASCULAR: Regular rate and rhyth m. No murmur. No JVD. - ABDOMEN: Soft, non-tender and non-dist ended. No palpable masses. - EXTREMITIES: No edema. Peripheral puls es 2+. Non-tender. - NEUROLOGIC: No focal neurological defi cits. CN II-XII grossly intact, upper extremities are weak bilaterally - PSYCHIATRIC: Awake, Alert and oriented x 3. Appropriate mood and affect. - SKIN: No rashes or lesions. Warm. - LYMPH: No cervical lymphadenopathy. H&P: Results Labs Labs: Short CBC 03/10/25 Range/Units 07:09 WBC 7.0 (4.5-10.0) K/mm3 Hgb 10.5 L (14.0-18.0) g/dL Hct 37.2 L (42.0-52.0) % Plt Count 223 (150-375) k/mm3 BMP 03/10/25 07:09 Sodium 132 L Potassium 4.3 Chloride 91 L Carbon Dioxide 32 H BUN 38 H Creatinine 6.21 H Glucose 132 H Calcium 10.7 H Liver Function 03/10/25 Range/Units 07:09 Total Bilirubin 0.4 (0.2-1.3) mg/dL AST 17 (17-59) U/L ALT 11 (6-50) U/L Alkaline Phosphatase 54 (38-126) U/L Albumin 3.9 (3.5-5.1) g/dL Urine 03/10/25 Range/Units 08:27 Urine Color Yellow (Yellow) Urine Appearance Clear (Clear) Urine pH 7.5 (5.0-9.0) Ur Specific [place] 1.014 (1.001-1.035) Urine Protein 4+ H (Negative) mg/dL Urine Glucose (UA) 1+ H (Negative) mg/dL Assessment and Plan Assessment and plan (1) Type 2 diabetes mellitus, with long-term current use of insulin: Qualifiers: Diabetes mellitus complication status: with neurologic complications Diabetes mellitus complication detail: with polyneuropathy Qualified Code(s): E11.42 - Type 2 diabetes mellitus with diabetic polyneuropathy; Z79.4 - longterm (current) use of insulin Code(s): E11.9 - Type 2 diabetes mellitus without complications; 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 Status: Acute (2) Atrial fibrillation: Code(s): I48.91 - Unspecified atrial fibrillation Status: Chronic (3) Peripheral vascular disease: Onset Date: ~03/2023 Code(s): I73.9 - Peripheral vascular disease, unspecified Status: Acute (4) Dyslipidemia: Code(s): E78.5 - Hyperlipidemia, unspecified Status: Acute (5) CAD in [place] artery: Code(s): I25.10 - Atherosclerotic heart disease of [place] coronary artery without angina pectoris Status: Acute (6) Essential (primary) hypertension: Code(s): I10 - Essential (primary) hypertension Status: Chronic (7) End-stage renal disease on hemodialysis: Code(s): N18.6 - End stage renal disease; Z99.2 - Dependence on renal dialysis Status: Acute (8) Seizure disorder: Code(s): G40.909 - Epilepsy, unspecified, not intractable, without status epilepticus Status: Acute (9) Diabetic polyneuropathy: Code(s): E11.42 - Type 2 diabetes mellitus with diabetic polyneuropathy Status: Acute (10) Left cervical radiculopathy: Code(s): M54.12 - Radiculopathy, cervical region Status: Acute (11) COPD (chronic obstructive pulmonary disease): Qualifiers: COPD type: unspecified COPD Qualified Code(s): J44.9 - Chronic obstructive pulmonary disease, unspecified Code(s): J44.9 - Chronic obstructive pulmonary disease, unspecified Status: Chronic (12) Obstructive sleep apnea: Code(s): G47.33 - Obstructive sleep apnea (adult) (pediatric) Status: Acute Plan This is a 79-year-old male who presents to the ED from care home for worsening shortness of breath generalized weakness and congestion. He also felt he had double vision earlier today also had slurred speech. He is scheduled to go for dialysis this a.m.. He has been compliant with his dialysis session. In the ED his vitals were stable except for mild hypertension. Laboratory evaluation showed WBC of 7 hemoglobin of 10.5 platelet of 223 sodium 132 potassium 4.3 chloride 91 bicarbonate 32 BUN 60 creatinine 6.2 blood sugar of 132. BNP more than 30,000 influenza RSV COVID swab was negative LFTs were normal. Urinalysis was negative for UTI. EKG showed atrial fibrillation with right bundle branch block Chest x-ray showed bronchial wall thickening. CT head showed small old lacunar infarcts in the bilateral mid brain. No acute intracranial process. Age- related changes including moderate diffuse volume loss and moderate scattered white matter hyponatremia griffin consistent with chronic small-vessel ischemic disease and sinus disease was noted. He was recently admitted for similar complaint. CTA at that time showed no occlusion or significant stenosis. 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 Neuro surgical consultation at that time had decided to get possible cervical MRI at pacemaker compatible facility and not to pursue CT myelogram. He is admitted in this setting for further evaluation and management. Generalized weakness/blurred vision CT head is negative. He has suspected cervical radiculopathy. Cervical CT from December 2024 showed chronic compression fracture of C4 and C5 along with multilevel facet joint disease and uncovertebral joint osteoarthritic changes. Could not get MRI due to pacemaker device. CT cervical spine repeat on February 2025 showed moderate neuroforaminal narrowing on left at C2 4-5 and on the right at C2-3. Erosive changes at C3-C4 and C4-C5 disc stasis these appear chronic. Bilateral shoulder x-ray October 2024 were unremarkable. Neurosurgery was consulted last admission plan for cervical MRI as an outpatient basis at MRI compatible facility. Chronic CHF diastolic. Bilateral upper extremity weakness cervical radiculopathy related versus shoulder related will consult orthopedics Bronchitis End-stage renal disease on hemodialysis nephrology consulted Chronic respiratory failure on oxygen at home Chronic anemia with no signs of bleeding Type 2 diabetes on insulin Atrial fibrillation anticoagulation intermittent neurological symptoms be related to this. His chads Vasc score is at least 5. Will start Eliquis. He likely had been off anticoagulation due to anemia requiring blood transfusion in 2023 CARITO on CPAP Coronary artery disease status post CABG in 2013 Cardiac pacemaker her due to sinus pauses October 2024 Peripheral artery disease status post angioplasty and endarterectomy bilateral lower extremities Disposition: PT OT to see DVT prophylaxis start Eliquis Code status full code Hospitalist [facility] Advance Care Plan I have confirmed that the patient's Advanced Care Plan is present, code status is documented, or surrogate decision maker is listed in patient medical record.: Yes Medication Reconciliation I have utilized all available resources to obtain, update and review the patients current medications (includes all prescriptions, OTC, herbals, cannabis, and nutritional supplements).: Yes
[2025-03-10] MEDS: EPOETIN ALFA-EPBX 10,000 UNITS/ML VIAL 10000 UNITS IV PUSH (15:48)
[2025-03-10] MEDS: MELATONIN 3 MG TABLET PO (20:35)
[2025-03-10] MEDS: carvediloL 25 MG TABLET PO (20:35)
[2025-03-10] MEDS: APIXABAN 2.5 MG TABLET PO (20:35)
[2025-03-10] MEDS: TAMSULOSIN HCL 0.4 MG CAPSULE PO (20:35)
[2025-03-10] MEDS: ATORVASTATIN 20 MG TABLET PO (20:35)
[2025-03-10] MEDS: ACETAMINOPHEN/CODEINE (*CRX) 300/30 MG TABLET 1 TAB PO (20:38)
[2025-03-10] MEDS: CYCLOBENZAPRINE HCL 10 MG TABLET PO (20:38)
[2025-03-10 21:07] LABS: Glucose Point of Care 178 mg/dl (65-105)
[2025-03-10] MEDS: INSULIN GLARGINE (*BKC) 100 UNITS/ML 6 UNITS SUB-Q (21:09)
[2025-03-11] VITALS (21 sets, daily range): BP systolic 136–182; BP diastolic 57–92; PULSE 60–80; RESP 16–18; TEMP 36.1–37.4; O2SAT 92–100; BMI 29.9
--- NOTE | 2025-03-11 09:34 | P.PNNP_ITS ---
Progress Note: A&P Assessment and Plan (1) End stage renal disease: Code(s): N18.6 - End stage renal disease Status: Chronic Assessment and Plan: * HD tomorrow * continue T/T/S outpatient dialysis schedule while hospitalized * follow electrolytes, volume status, and clearance (2) Acute respiratory failure with hypoxia: Code(s): J96.01 - Acute respiratory failure with hypoxia Status: Acute Assessment and Plan: * clinical improvement noted * due to several issues: * mild pulmonary edema * chronic CHF * history of COPD * reactive airway disease * bronchitis * other(?) * fluid removal/ultrafiltration with dialysis * dry ultrafiltration (DUF) today for further fluid removal * supplemental oxygen as needed (off currently) * follow respiratory status (3) Generalized weakness: Code(s): R53.1 - Weakness Status: Acute Assessment and Plan: * CT scan of head negative for acute pathology * Cervical CT earlier this month noted: * moderate neuroforaminal narrowing on left at C2 4-5 and on the right at C2- 3 * erosive changes at C3-C4 and C4-C5 disc stasis these appear chronic * Neurosurgery was consulted last admission -- plan for cervical MRI as an outpatient at a MRI compatible facility (has pacemaker) * continue supportive therapy (4) Atrial fibrillation: Code(s): I48.91 - Unspecified atrial fibrillation Status: Chronic Assessment and Plan: * rate control strategy * restarted on anticoagulation - Eliquis * apparently previously held due to issues with GI bleeding (5) Anemia: Code(s): D64.9 - Anemia, unspecified Status: Chronic Assessment and Plan: * due to ESRD * Epogen with HD * follow trend of H/H (6) Hypercalcemia: Code(s): E83.52 - Hypercalcemia Status: Acute Assessment and Plan: * noted on last hospitalization as well * no clear on etiology * sensipar/cinacalcet usually causes hypocalcemia * possibly due to prolonged immobilization/bed bound state? * adjusting calcium bath with dialysis to compensate (7) Essential (primary) hypertension: Code(s): I10 - Essential (primary) hypertension Status: Chronic Assessment and Plan: * running a bit high * fluid removal with HD/DUF may help * resume home medications * follow trend of hemodynamics (8) IDDM (insulin dependent diabetes mellitus): Status: Chronic Assessment and Plan: * follow accu-cheks * glycemic control per hospitalist Will continue to follow. L Subjective Date/time seen: 03/11/25 09:34 Interval history: Follow-up for end stage renal disease on hemodialysis. Tolerating dry ultrafiltration at the time of my visit (seen on DUF at 09:25AM); respiratory status/breathing seems stable if not better (off supplemental oxygen); no other acute issues/events overnight or earlier this morning; no apparent distress noted. Exam 2 Narrative: General: elderly WD/WN male in NAD Heart: normal S1 and S2; no rub Lungs: clear anteriorly; decreased at bases Abdomen: soft, nontender, nondistended, positive bowel sounds Extremities: no cyanosis or clubbing; trace edema Skin: warm and dry Objective Data Vital Signs Vital Signs: Vital Signs Temp Pulse Resp BP Pulse Ox O2 Del Method O2 Flow Rate 03/11/25 09:30 75 159/75 H 03/11/25 09:15 63 159/90 H 03/11/25 09:00 77 162/83 H 03/11/25 08:45 67 156/82 H 03/11/25 08:30 79 157/92 H 03/11/25 08:21 64 175/84 H 03/11/25 08:21 97.5 F L 71 16 175/84 H 03/11/25 05:10 97.0 F L 70 16 161/57 H 97 03/10/25 20:29 97.2 F L 93 20 160/84 H 95 03/10/25 20:00 95 Nasal Cannula 2 03/10/25 18:18 98.4 F 75 18 165/75 H 03/10/25 17:30 63 155/92 H 03/10/25 17:23 84 165/96 H 03/10/25 17:15 83 160/74 H 03/10/25 17:00 86 179/74 H 03/10/25 16:45 84 165/102 H 03/10/25 16:30 85 172/89 H 03/10/25 16:15 84 177/102 H 03/10/25 16:00 87 190/87 H 03/10/25 15:45 85 173/94 H 03/10/25 15:30 77 166/88 H 03/10/25 15:15 85 180/108 H 03/10/25 15:00 79 172/89 H 03/10/25 14:45 77 168/88 H 03/10/25 14:30 83 179/83 H 03/10/25 14:15 75 178/92 H 03/10/25 14:12 75 168/92 H 03/10/25 13:53 1 03/10/25 13:53 98.4 F 77 18 186/84 H Intake/Output Intake/Output: Intake & Output 03/08/25 03/09/25 03/10/25 03/11/25 23:59 23:59 23:59 23:59 Intake Total 600 636 Output Total 3600 Balance -3000 636 Meds/Results Medications: Active Medications Generic Name Dose Route Start Last Admin Trade Name Freq PRN Reason Stop Dose Admin Acetaminophen 650 mg 03/10/25 15:58 Acetaminophen 325 Mg Tablet PO Q4H PRN Mild Pain (1-3) Or Fever Acetaminophen 650 mg 03/10/25 17:00 03/11/25 09:53 Acetaminophen 325 Mg Tablet PO Not Given TID [facility] Acetaminophen/Codeine Phosphate 1 tab 03/10/25 15:58 03/10/25 20:38 Acetaminophen/Codeine (*Crx) 300/30 Mg Tablet PO 1 tab Q6H PRN Administration pain, severe 7-10 Amlodipine Besylate 10 mg 03/11/25 09:00 03/11/25 09:53 Amlodipine Besylate 10 Mg Tablet PO Not Given DAILY DAVID Apixaban 2.5 mg 03/10/25 21:00 03/10/25 20:35 Apixaban 2.5 Mg Tablet PO 2.5 mg Q12HR DAVID Administration Aspirin 81 mg 03/11/25 09:00 Aspirin 81 Mg Enteric Tablet PO DAILY DAVID Atorvastatin Calcium 20 mg 03/10/25 21:00 03/10/25 20:35 Atorvastatin 20 Mg Tablet PO 20 mg HS DAVID Administration Baclofen 5 mg 03/10/25 17:00 03/11/25 09:53 Baclofen 5 Mg Tablet PO Not Given TID DAVID Bisacodyl 10 mg 03/10/25 15:58 Bisacodyl 10 Mg Suppository RECTAL DAILY PRN constipation Carvedilol 25 mg 03/10/25 21:00 03/10/25 20:35 Carvedilol 25 Mg Tablet PO 25 mg Q12HR DAVID Administration Cinacalcet 90 mg 03/11/25 09:00 03/11/25 09:53 Cinacalcet 30 Mg Tablet PO Not Given DAILY [facility] Cyclobenzaprine HCl 10 mg 03/10/25 15:58 03/10/25 20:38 Cyclobenzaprine Hcl 10 Mg Tablet PO 10 mg Q8H PRN Administration muscle spasm Finasteride 5 mg 03/11/25 09:00 Finasteride 5 Mg Tablet PO QAM [facility] Furosemide 80 mg 03/10/25 17:00 03/11/25 09:53 Furosemide 80 Mg Tablet PO Not Given BID DAVID Gabapentin 100 mg 03/10/25 17:00 03/10/25 18:40 Gabapentin 100 Mg Capsule PO Not Given TID DAVID Albumin Human 50 mls @ 999 mls/hr 03/10/25 09:07 Albutein IVPB 04/09/25 09:06 Q10M PRN HYPOTENSION Insulin Aspart 4 units 03/10/25 16:30 03/10/25 18:39 Insulin Aspart (*Bkc) 100 Units/Ml SUB-Q Not Given TIDAC [facility] Insulin Glargine 6 units 03/11/25 09:00 03/11/25 09:54 Insulin Glargine (*Bkc) 100 Units/Ml SUB-Q Not Given DAILY [facility] Insulin Glargine 6 units 03/10/25 21:00 03/10/25 21:09 Insulin Glargine (*Bkc) 100 Units/Ml SUB-Q 6 units HS [facility] Administration Loperamide HCl 2 mg 03/10/25 15:58 Loperamide Hcl 2 Mg Capsule PO Q4H PRN loose stool Loratadine 10 mg 03/10/25 15:58 Loratadine 10 Mg Tablet PO DAILY PRN itching Loratadine 10 mg 03/11/25 09:00 03/11/25 09:54 Loratadine 10 Mg Tablet PO Not Given DAILY [facility] Losartan Potassium 100 mg 03/10/25 15:58 Losartan Potassium 100 Mg Tablet PO PRN PRN blood pressure Magnesium Citrate 296 ml 03/10/25 15:58 Magnesium Citrate 300 Ml Btl PO QAM PRN constipation Magnesium Hydroxide 30 ml 03/10/25 15:58 Magnesium Hydroxide Susp 30 Ml Udc PO HS PRN constipation Melatonin 3 mg 03/10/25 21:00 03/10/25 20:35 Melatonin 3 Mg Tablet PO 3 mg HS [facility] Administration Miscellaneous Information 1 each 03/10/25 16:13 Nonformulary Drug (Sodium Phosphates [Fleet Enema] 19-7 Gram/118 Ml Enema) XX 03/11/25 16:12 PRN PRN Informational Miscellaneous Information 0 each 03/10/25 00:01 03/11/25 02:22 Liraglutide Nonform Can Pt Bring From Home Or Hold While Here? XX 04/09/25 00:00 Not Given CLARIFY [facility] Non-Formulary Medication 1.2 mg 03/11/25 09:00 Liraglutide SUB-Q 04/10/25 08:59 DAILY [facility] Ondansetron HCl 4 mg 03/10/25 08:20 Ondansetron Inj 4 Mg/2 Ml Vial IV PUSH Q4H PRN Nausea Pentoxifylline 400 mg 03/10/25 18:00 03/10/25 18:42 Pentoxifylline 400 Mg Tabcr PO Not Given QPM [facility] Sevelamer Carbonate 3.2 gm 03/10/25 17:00 03/11/25 09:51 Sevelamer Carbonate 0.8 Gm Oral Powder Packet PO Not Given TIDWM [facility] Tamsulosin HCl 0.4 mg 03/10/25 21:00 03/10/25 20:35 Tamsulosin Hcl 0.4 Mg Capsule PO 0.4 mg QHS [facility] Administration Tramadol HCl 50 mg 03/10/25 17:00 03/10/25 18:40 Tramadol Hcl (*Crx) 50 Mg Tablet PO Not Given BID [facility] Umeclidinium Devol 2 puff 03/11/25 08:00 Umeclidinium Devol 62.5 Mcg Ellipta INHALATION DAILYRT [facility] Vitamin B Complex 1 cap 03/11/25 09:00 Vitamin B Complex Capsule PO DAILY [facility] Radiology Results: ITS Impressions Chest X-Ray 03/10/25 06:47 IMPRESSION: 1. Bronchial wall thickening. Given the pulmonary vascular congestion is could be related to peribronchial cuffing in the setting of minimal pulmonary edema. Differential would include bronchitis or reactive airway disease/asthma. Head CT 03/10/25 06:53 IMPRESSION: 1. 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 No acute intracranial process. 2. Age-related changes including moderate diffuse volume loss and moderate scattered white matter hypoattenuation consistent with chronic small vessel ischemic disease. 3. Sinus disease. Labs Labs: Laboratory Tests 03/10/25 07:09 03/10/25 07:09
--- NOTE | 2025-03-11 11:52 | P.CONOP_ITS ---
Assessment and Plan Assessment and plan (1) Left cervical radiculopathy: Code(s): M54.12 - Radiculopathy, cervical region Status: Acute (2) Upper extremity weakness: Code(s): R29.898 - Other symptoms and signs involving the musculoskeletal system Status: Acute Assessment and Plan: patient seen and examined. Complaints of bilateral arm weakness particularly with shoulder range of motion. No pain with active and passive range of motion and has good passive range. Weakness with grade 3 to 4/5 bilateral shoulder flexion and abduction. Previous shoulder radiographs done earlier this year show normal shoulder joints with good alignment. Minimal degenerative changes. no acute changes noted. Weakness appears to be cervical radiculopathy related. He has responded well in the past to physical therapy. Would recommend continue physical therapy. Nothing further to add. History of Present Illness HPI Consult date: 03/11/25 Requesting physician: Florentino Ennis MD Chief complaint: arm weakness Narrative: 79-year-old gentleman on chronic hemodialysis for renal failure admitted to the hospital with increasing weakness and fatigue. Receiving hemodialysis. History of 5 month progressive weakness of both arms. Reports little pain but has difficulty lifting the arms at the shoulder level. Able to flex extend the elbows wrist and hands bilaterally. No numbness or tingling. Review of Systems 2 Constitutional: Constitutional: Denies fever(s) Eyes: Eyes: Denies blurry vision ENT: Reports Normal hearing present Cardiovascular: Cardiovascular: Denies chest pain and Denies dyspnea Respiratory: Respiratory: Denies dyspnea and Denies wheezing Gastrointestinal: Gastrointestinal: Denies abdominal pain Genitourinary: Genitourinary: Denies urinary urgency Musculoskeletal: Musculoskeletal: Reports as per HPI, Reports atrophy, Reports limited range of motion ( bilateral shoulders) and Denies numbness Integumentary/Breasts: Skin/Breast: Denies changing lesions and Denies sores Neurologic: Reports Normal hearing present, Denies confusion, Denies numbness, Denies convulsions and Reports weakness ( bilateral arms) Psychiatric: Psychiatric: Denies behavioral changes, Denies confusion and Denies hallucinations Endocrine: Endocrine: Denies heat intolerance Hematologic/Lymphatic: Hematologic/Lymphatic: Denies easy bleeding Allergic/Immunologic: Allergic/Immunologic: Denies wheezing PMFSH Past Medical History Medical History Bilateral shoulder pain Diabetic polyneuropathy Diabetes Coronary artery disease Chronic obstructive pulmonary disease Diabetic peripheral neuropathy Anemia Atrial fibrillation Chronic neck and back pain Insomnia History of nephrolithiasis Sinus pause (~09/2024) Obstructive sleep apnea Intolerant to CPAP Insulin dependent type 2 diabetes mellitus (~2009) Benign prostatic hyperplasia Peripheral vascular disease (~03/2023) Internal hemorrhoid, bleeding End-stage renal disease on hemodialysis DVT dialysis Sunday History of colon polyps Environmental allergies Vitamin D deficiency Dyslipidemia Essential (primary) hypertension Surgical History Surgical History History of cardiac pacemaker (~10/2024) Medtr[employer] pacemaker placed due to symptomatic sinus pauses causing syncope performed at [facility] Status post cataract extraction of both eyes with insertion of intraocular lens History of colonoscopy with polypectomy History of hemorrhoidectomy (~01/12/24) Anorectal evaluation under anesthesia and excisional hemorrhoidectomy x3 12/14/23 SAW S/P peripheral artery angioplasty (~03/2023) status post balloon angioplasty of bilateral common and external iliac arteries status post left iliofemoral endarterectomy Arteriovenous fistula of left upper extremity (~2017) History of appendectomy (~1962) History of coronary artery bypass graft (~2013) Family History Family History Mother Diabetes mellitus Acute myocardial infarction Family history of congestive heart failure Father Hypertension Social History Social History Social History: The patient is . He and his brother live together prior to his recent hospitalization and placement in to [facility]. He is retired after 26 years of serving in the [employer]. He has 4 children. He used to smoke 1.5-2 packs of cigarettes per day but quit smoking in approximately 2009. He will on a rare occasion drink an alcoholic beverage maybe 2 to 3 times a year. He denies illicit substance use. Surrogate medical decision maker: Wilian Morrissey, sibling. Code status: Full code. Caffeine- daily Smoking packs per day: 1.5 Smoking cigarettes per day: 30.0 Years smoked: 44 Smoking pack-years: 66.00 Smoking status: Never smoker Second hand tobacco smoke exposure: No Alcohol intake: never Alcohol use details: Maybe 2-3 per year Substance use: never Substance use type: does not use Do You Feel Safe in your Home?: Yes Lack of Transportation: No Lack of Food: Never True Current Housing: I Have Housing Concerned About Future Housing: No Difficulty Paying Gas/Electric Bills: No Difficulty Paying for Meds: No Currently Unemployed: No Education: High School Diploma/GED Difficulty w/ Childcare or Family Care: No Living arrangements: with family Occupation/Education: retired Additional occupation/education comments: Retired from the [employer]. Spiritual care concerns: No Agree to blood products: Yes Meds Home Medications and Allergies Home Medications ?Medication ?Instructions ?Recorded ?Confirmed ?Type aspirin 81 mg tablet,delayed 81 mg PO DAILY 10/31/21 03/10/25 History release carvedilol 25 mg tablet 25 mg PO BID 10/31/21 03/10/25 History insulin lispro 100 unit/mL 4 unit subcut .TIDAC 10/31/21 03/10/25 History subcutaneous pen loratadine 10 mg tablet (Claritin) 10 mg PO DAILY 10/31/21 03/10/25 History insulin glargine 100 unit/mL (3 6 unit subcut QPM 11/07/23 03/10/25 History mL) subcutaneous pen (Lantus Solostar U-100 Insulin) cinacalcet 90 mg PO DAILY 12/12/23 03/10/25 History atorvastatin 20 mg tablet 20 mg PO HS 12/21/24 03/10/25 History finasteride 5 mg tablet (Proscar) 5 mg PO QAM #30 tabs 12/23/24 03/10/25 Rx furosemide 80 mg tablet 80 mg PO BID #60 tabs 12/23/24 03/10/25 Rx sevelamer carbonate 0.8 gram oral 3.2 g PO TIDWM 30 days #60 ea 12/23/24 03/10/25 Rx powder packet tamsulosin 0.4 mg capsule 0.4 mg PO QHS #30 caps 12/23/24 03/10/25 Rx acetaminophen 325 mg tablet 650 mg (2 x 325 mg) PO Q4H PRN 01/10/25 03/10/25 Rx Mild Pain (1-3) Or Fever #60 tabs pentoxifylline 400 mg 400 mg PO QPM 01/29/25 03/10/25 History tablet,extended release acetaminophen 300 mg-codeine 30 mg 1 tablet PO Q6H PRN pain, severe 02/16/25 03/10/25 History tablet amlodipine 10 mg tablet 10 mg PO DAILY 02/16/25 03/10/25 History bisacodyl 10 mg rectal suppository 10 mg RECTAL DAILY PRN constipation 02/16/25 03/10/25 History (Laxative (bisacodyl)) gabapentin 100 mg capsule 100 mg PO TID 02/16/25 03/10/25 History liraglutide 0.6 mg/0.1 mL (18 mg/3 1.2 mg subcut DAILY 02/16/25 03/10/25 History mL) subcutaneous pen injector loratadine 10 mg capsule (Allergy 10 mg PO DAILY PRN itching 02/16/25 03/10/25 History Relief (loratadine)) magnesium citrate (Citroma oral 296 ml PO .AM PRN constipation 02/16/25 03/10/25 History solution) magnesium hydroxide 400 mg/5 mL 30 ml PO HS PRN constipation 02/16/25 03/10/25 History oral suspension (Milk of Magnesia) sodium phosphates 19 gram-7 118 ml RECTAL DAILY PRN 02/16/25 03/10/25 History gram/118 mL enema (Fleet Enema) constipation vitamin B complex 1 cap PO DAILY 02/16/25 03/10/25 History acetaminophen 325 mg tablet 650 mg PO TID 03/10/25 03/10/25 History baclofen 5 mg tablet 5 mg PO TID 03/10/25 03/10/25 History cyclobenzaprine 10 mg tablet 10 mg PO Q8H PRN muscle spasm 03/10/25 03/10/25 History insulin glargine 100 unit/mL (3 6 unit subcut DAILY 03/10/25 03/10/25 History mL) subcutaneous pen (Lantus Solostar U-100 Insulin) insulin lispro 100 unit/mL 4 unit subcut DAILY 03/10/25 03/10/25 History subcutaneous pen, sensor (Humalog Tempo Pen (U-100) Insulin) ipratropium 20 mcg-albuterol 100 1 puff inhalation Q6H PRN 03/10/25 03/10/25 History mcg/actuation mist for inhalation shortness of breath or wheezing (Combivent Respimat) loperamide 2 mg capsule 2 mg PO Q4H PRN loose stool 03/10/25 03/10/25 History losartan 100 mg tablet 100 mg PO PRN PRN blood pressure 03/10/25 03/10/25 History melatonin 3 mg tablet 3 mg PO HS 03/10/25 03/10/25 History tramadol 50 mg tablet 50 mg PO BID 03/10/25 03/10/25 History umeclidinium 62.5 mcg/actuation 2 inh inhalation DAILY 03/10/25 03/10/25 History blister powder for inhalation (Incruse Ellipta) Allergies Allergy/AdvReac Type Severity Reaction Status Date / Time No Known Allergies Allergy Verified 03/10/25 07:55 Vital Signs Vital Signs - 24 hr 03/10/25 13:53 03/10/25 13:53 03/10/25 14:12 Temperature 98.4 F Pulse Rate 77 75 Respiratory Rate 18 Blood Pressure 186/84 H 168/92 H Pulse Oximetry Oxygen Delivery Oxygen Flow Rate 1 03/10/25 14:15 03/10/25 14:30 03/10/25 14:45 Temperature Pulse Rate 75 83 77 Respiratory Rate Blood Pressure 178/92 H 179/83 H 168/88 H Pulse Oximetry Oxygen Delivery Oxygen Flow Rate 03/10/25 15:00 03/10/25 15:15 03/10/25 15:30 Temperature Pulse Rate 79 85 77 Respiratory Rate Blood Pressure 172/89 H 180/108 H 166/88 H Pulse Oximetry Oxygen Delivery Oxygen Flow Rate 03/10/25 15:45 03/10/25 16:00 03/10/25 16:15 Temperature Pulse Rate 85 87 84 Respiratory Rate Blood Pressure 173/94 H 190/87 H 177/102 H Pulse Oximetry Oxygen Delivery Oxygen Flow Rate 03/10/25 16:30 03/10/25 16:45 03/10/25 17:00 Temperature Pulse Rate 85 84 86 Respiratory Rate Blood Pressure 172/89 H 165/102 H 179/74 H Pulse Oximetry Oxygen Delivery Oxygen Flow Rate 03/10/25 17:15 03/10/25 17:23 03/10/25 17:30 Temperature Pulse Rate 83 84 63 Respiratory Rate Blood Pressure 160/74 H 165/96 H 155/92 H Pulse Oximetry Oxygen Delivery Oxygen Flow Rate 03/10/25 18:18 03/10/25 20:00 03/10/25 20:29 Temperature 98.4 F 97.2 F L Pulse Rate 75 93 Respiratory Rate 18 20 Blood Pressure 165/75 H 160/84 H Pulse Oximetry 95 95 Oxygen Delivery Nasal Cannula Oxygen Flow Rate 2 03/11/25 05:10 03/11/25 08:00 03/11/25 08:21 Temperature 97.0 F L 97.5 F L Pulse Rate 70 71 Respiratory Rate 16 16 Blood Pressure 161/57 H 175/84 H Pulse Oximetry 97 97 Oxygen Delivery Nasal Cannula Oxygen Flow Rate 1 03/11/25 08:21 03/11/25 08:30 03/11/25 08:45 Temperature Pulse Rate 64 79 67 Respiratory Rate Blood Pressure 175/84 H 157/92 H 156/82 H Pulse Oximetry Oxygen Delivery Oxygen Flow Rate 03/11/25 09:00 03/11/25 09:15 03/11/25 09:30 Temperature Pulse Rate 77 63 75 Respiratory Rate Blood Pressure 162/83 H 159/90 H 159/75 H Pulse Oximetry Oxygen Delivery Oxygen Flow Rate 03/11/25 09:45 03/11/25 10:00 03/11/25 10:15 Temperature Pulse Rate 69 71 61 Respiratory Rate Blood Pressure 136/61 154/57 H 136/68 Pulse Oximetry Oxygen Delivery Oxygen Flow Rate 03/11/25 10:30 03/11/25 10:45 03/11/25 11:00 Temperature Pulse Rate 66 64 77 Respiratory Rate Blood Pressure 157/74 H 164/73 H 161/81 H Pulse Oximetry Oxygen Delivery Oxygen Flow Rate 03/11/25 11:15 Temperature Pulse Rate 63 Respiratory Rate Blood Pressure 166/81 H Pulse Oximetry Oxygen Delivery Oxygen Flow Rate Exam 2 Const: General: healthy appearing; No in distress or confusion O rientation/consciousness: oriented to person, oriented to place, oriented to time and No confusion HENMT: Head: normal to inspection, normocephalic and atraumatic Eyes: Conjunctivae: conjunctivae normal Sclera: sclerae normal Neck: Neck: supple and nontender Resp: Effort & Inspection: normal respiratory effort and no audible wheezes Cardio: Rate: regular rate Rhythm: regular rhythm Skin: General skin exam: no rashes or lesions noted Neuro: General: oriented to person, oriented to place, oriented to time and No confusion Extrem: Right upper extremity: shoulder/upper arm tenderness over the biceps tendon, over the subacromial bursa and other ( Anterolateral acromion, anterior joint), axillary nerve sensory function normal, abnormal ROM with range as follows (active FF 30, Abd 30, passive forward flexion 120?, abduction 120?, ER 50, IR 50); no pain with active ROM and no pain with passive ROM and other (RC 4/5, Bicep 4/5, Deltoid 5/5, ER 5/5); no swelling, elbow/forearm normal ROM; no tenderness and no swelling, wrist normal ROM and radial pulse present; no tenderness and Extremity exam: right hand neuromotor exam normal wrist extension normal, thumb opposition normal, thumb IP flexion normal and fingers 2-5 ABduction normal, neurosensory exam normal radial nerve sensory function normal, ulnar nerve sensory function normal, median nerve sensory function normal and digital nerve sensory function normal and vascular exam radial pulse present and normal capillary refill; no tenderness, no swelling and no crepitus Left upper extremity: normal to inspection, shoulder/upper arm inspection abnormal, tenderness of the A-C joint, of the proximal humerus, over the subacromial bursa and other (anterolateral acromion, gh joint), axillary nerve sensory function normal, abnormal ROM with range as follows (active FF 30, Abd 30, passive forward flexion 120?, abduction 120?, ER 50, IR 50); no pain with active ROM and no pain with passive ROM and other (RC 4/5, Bicep 4/5, Deltoid 5-/5, ER 4/5); no swelling, elbow/forearm normal ROM; no tenderness and no swelling, wrist normal ROM and radial pulse present; no tenderness and hand neuromotor exam normal Details: wrist extension normal and thumb IP flexion normal, neurosensory exam normal Details: radial nerve sensory function normal, ulnar nerve sensory function normal and median nerve sensory function normal, tendon exam normal Location: of all digits and vascular exam normal capillary refill; no tenderness Right lower extremity: foot Details: abnormal to inspection ( ulcer posterior heel, through dermis) Left lower extremity: normal to inspection Psych: Affect: normal affect Results Labs 03/10/25 07:09 03/10/25 07:09 Labs: Abnormal lab results 03/10/25 Range/Units 20:57 POC Capillary Glucose 178 H (65-105) mg/dl H & H 03/10/25 Range/Units 07:09 Hgb 10.5 L (14.0-18.0) g/dL Hct 37.2 L (42.0-52.0) % All other labs normal.
--- NOTE | 2025-03-11 13:17 | PC.NURSE ---
Pt transported per nursing and returned to room from dialysis.
[2025-03-11] MEDS: GABAPENTIN 100 MG CAPSULE PO ×2 (13:25→17:43)
[2025-03-11] MEDS: amLODIPine BESYLATE 10 MG TABLET PO (13:25)
[2025-03-11] MEDS: ASPIRIN 81 MG ENTERIC TABLET PO (13:26)
[2025-03-11] MEDS: BACLOFEN 5 MG TABLET PO ×2 (13:26→17:44)
[2025-03-11] MEDS: APIXABAN 2.5 MG TABLET PO ×2 (13:26→21:14)
[2025-03-11] MEDS: FINASTERIDE 5 MG TABLET PO (13:26)
[2025-03-11] MEDS: ACETAMINOPHEN 325 MG TABLET 650 MG PO ×2 (13:26→17:44)
[2025-03-11] MEDS: carvediloL 25 MG TABLET PO ×2 (13:27→21:12)
[2025-03-11 17:13] LABS: Glucose Point of Care 167 mg/dl (65-105)
--- NOTE | 2025-03-11 17:41 | P.PNIM_ITS ---
Progress Note: A&P Assessment and Plan (1) Type 2 diabetes mellitus, with long-term current use of insulin: Qualifiers: Diabetes mellitus complication status: with neurologic complications Diabetes mellitus complication detail: with polyneuropathy Qualified Code(s): E11.42 - Type 2 diabetes mellitus with diabetic polyneuropathy; Z79.4 - half-way (current) use of insulin Code(s): E11.9 - Type 2 diabetes mellitus without complications; Z79.4 - half-way (current) use of insulin Status: Acute (2) Atrial fibrillation: Code(s): I48.91 - Unspecified atrial fibrillation Status: Chronic (3) Peripheral vascular disease: Onset Date: ~03/2023 Code(s): I73.9 - Peripheral vascular disease, unspecified Status: Acute (4) Dyslipidemia: Code(s): E78.5 - Hyperlipidemia, unspecified Status: Acute (5) 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: Code(s): I25.10 - Atherosclerotic heart disease of false pass coronary artery without angina pectoris Status: Acute (6) Essential (primary) hypertension: Code(s): I10 - Essential (primary) hypertension Status: Chronic (7) End-stage renal disease on hemodialysis: Code(s): N18.6 - End stage renal disease; Z99.2 - Dependence on renal dialysis Status: Acute (8) Seizure disorder: Code(s): G40.909 - Epilepsy, unspecified, not intractable, without status epilepticus Status: Acute (9) Diabetic polyneuropathy: Code(s): E11.42 - Type 2 diabetes mellitus with diabetic polyneuropathy Status: Acute (10) Left cervical radiculopathy: Code(s): M54.12 - Radiculopathy, cervical region Status: Acute (11) COPD (chronic obstructive pulmonary disease): Qualifiers: COPD type: unspecified COPD Qualified Code(s): J44.9 - Chronic obstructive pulmonary disease, unspecified Code(s): J44.9 - Chronic obstructive pulmonary disease, unspecified Status: Chronic (12) Obstructive sleep apnea: Code(s): G47.33 - Obstructive sleep apnea (adult) (pediatric) Status: Acute Plan This is a 79-year-old male who presents to the ED from long term for worsening shortness of breath generalized weakness and congestion. He also felt he had double vision earlier today also had slurred speech. He is scheduled to go for dialysis this a.m.. He has been compliant with his dialysis session. In the ED his vitals were stable except for mild hypertension. Laboratory evaluation showed WBC of 7 hemoglobin of 10.5 platelet of 223 sodium 132 potassium 4.3 chloride 91 bicarbonate 32 BUN 60 creatinine 6.2 blood sugar of 132. BNP more than 30,000 influenza RSV COVID swab was negative LFTs were normal. Urinalysis was negative for UTI. EKG showed atrial fibrillation with right bundle branch block Chest x-ray showed bronchial wall thickening. CT head showed small old lacunar infarcts in the bilateral mid brain. No acute intracranial process. Age- related changes including moderate diffuse volume loss and moderate scattered white matter hyponatremia griffin consistent with chronic small-vessel ischemic disease and sinus disease was noted. He was recently admitted for similar complaint. CTA at that time showed no occlusion or significant stenosis. 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 Neuro surgical consultation at that time had decided to get possible cervical MRI at pacemaker compatible facility and not to pursue CT myelogram. He is admitted in this setting for further evaluation and management. Generalized weakness/blurred vision CT head is negative. He has suspected cervical radiculopathy. Cervical CT from December 2024 showed chronic compression fracture of C4 and C5 along with multilevel facet joint disease and uncovertebral joint osteoarthritic changes. Could not get MRI due to pacemaker device. CT cervical spine repeat on February 2025 showed moderate neuroforaminal narrowing on left at C2 4-5 and on the right at C2-3. Erosive changes at C3-C4 and C4-C5 disc stasis these appear chronic. Bilateral shoulder x-ray October 2024 were unremarkable. Neurosurgery was consulted last admission plan for cervical MRI as an outpatient basis at MRI compatible facility. Chronic CHF diastolic. Bilateral upper extremity weakness cervical radiculopathy related versus shoulder related will consult orthopedics Bronchitis End-stage renal disease on hemodialysis nephrology consulted Chronic respiratory failure on oxygen at home Chronic anemia with no signs of bleeding Type 2 diabetes on insulin Atrial fibrillation anticoagulation intermittent neurological symptoms be related to this. His chads Vasc score is at least 5. Will start Eliquis. 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 Patient's symptoms have resolved. Will do CTA of the head and carotid ultrasound to further evaluate and further recommendation to follow. Subjective Date/time seen: 03/11/25 17:41 Interval history: Generalized weakness bloody vision H&P-Narrative: This is a 79-year-old male who presents to the ED from long term for worsening shortness of breath generalized weakness and congestion. He also felt he had double vision earlier today also had slurred speech. He is scheduled to go for dialysis this a.m.. He has been compliant with his dialysis session. In the ED his vitals were stable except for mild hypertension. Laboratory evaluation showed WBC of 7 hemoglobin of 10.5 platelet of 223 sodium 132 potassium 4.3 chloride 91 bicarbonate 32 BUN 60 creatinine 6.2 blood sugar of 132. BNP more than 30,000 influenza RSV COVID swab was negative LFTs were normal. Urinalysis was negative for UTI. Chest x-ray showed bronchial wall thickening. CT head showed small old lacunar infarcts in the bilateral mid brain. No acute intracranial process. Age- related changes including moderate diffuse volume loss and moderate scattered white matter hyponatremia griffin consistent with chronic small-vessel ischemic disease and sinus disease was noted. He was recently admitted for similar complaint. CTA at that time showed no occlusion or significant stenosis. 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 Neuro surgical consultation at that time had decided to get possible cervical MRI at pacemaker compatible facility and not to pursue CT myelogram. 79-year-old male with end-stage renal disease on hemodialysis presented with complaint of generalized weakness and blurry vision, patient had dialysis today, states feeling much denies any chest pain or shortness of breath, patient with complaint of blurry vision to further evaluate had a CT scan of the head which did not show any acute injury, due to pacemaker patient is unable to have an MRI. Patient's symptoms have resolved. Will do CTA of the head and carotid ultrasound to further evaluate and further recommendation to follow. Review of Systems Review of Systems: - CONSTITUTIONAL: Denies weight loss, fe kat and chills. - HEENT: Reports changes in vision and denies hearing - RESPIRATORY: Reports SOB and cough. - CV: Denies palpitations and CP. - GI: Denies abdominal pain, nausea, vom iting and diarrhea. - : Denies dysuria and urinary frequen cy. - MSK: Denies myalgia and joint pain. - SKIN: Denies rash and pruritus. - NEUROLOGICAL: Denies headache and sync ope. - PSYCHIATRIC: Denies recent changes in mood. Denies anxiety and depression. Exam Narrative: Patient is comfortable, NAD HEENT: eyes are clear and none icteric LUNGS:CTA HEART: RR S1S2 ABD: BS+, Soft and nontender Lower extremities: no edema SKIN: nonjaundiced Neuro: grossly intact. Objective Data Vital Signs Vital Signs: Vital Signs - 24 hr 03/10/25 18:18 03/10/25 20:00 03/10/25 20:29 Temperature 36.9 C 36.2 C L Pulse Rate 75 93 Respiratory Rate 18 20 Blood Pressure 165/75 H 160/84 H Pulse Oximetry 95 95 Oxygen Delivery Nasal Cannula Oxygen Flow Rate 2 03/11/25 05:10 03/11/25 08:00 03/11/25 08:21 Temperature 36.1 C L 36.4 C L Pulse Rate 70 71 Respiratory Rate 16 16 Blood Pressure 161/57 H 175/84 H Pulse Oximetry 97 97 Oxygen Delivery Nasal Cannula Oxygen Flow Rate 1 03/11/25 08:21 03/11/25 08:30 03/11/25 08:45 Temperature Pulse Rate 64 79 67 Respiratory Rate Blood Pressure 175/84 H 157/92 H 156/82 H Pulse Oximetry Oxygen Delivery Oxygen Flow Rate 03/11/25 09:00 03/11/25 09:15 03/11/25 09:30 Temperature Pulse Rate 77 63 75 Respiratory Rate Blood Pressure 162/83 H 159/90 H 159/75 H Pulse Oximetry Oxygen Delivery Oxygen Flow Rate 03/11/25 09:45 03/11/25 10:00 03/11/25 10:15 Temperature Pulse Rate 69 71 61 Respiratory Rate Blood Pressure 136/61 154/57 H 136/68 Pulse Oximetry Oxygen Delivery Oxygen Flow Rate 03/11/25 10:30 03/11/25 10:45 03/11/25 11:00 Temperature Pulse Rate 66 64 77 Respiratory Rate Blood Pressure 157/74 H 164/73 H 161/81 H Pulse Oximetry Oxygen Delivery Oxygen Flow Rate 03/11/25 11:15 03/11/25 11:21 03/11/25 12:11 Temperature 36.4 C L Pulse Rate 63 80 66 Respiratory Rate 18 Blood Pressure 166/81 H 182/82 H 148/82 H Pulse Oximetry Oxygen Delivery Oxygen Flow Rate 03/11/25 13:57 Temperature 36.4 C L Pulse Rate 60 Respiratory Rate 18 Blood Pressure 173/88 H Pulse Oximetry 100 Oxygen Delivery Oxygen Flow Rate Intake/Output Intake/Output: Intake & Output 03/08/25 03/09/25 03/10/25 03/11/25 23:59 23:59 23:59 23:59 Intake Total 600 1116 Output Total 3600 3550 Balance -3000 -5918 Meds/Results Medications: Active Medications Generic Name Dose Route Start Last Admin Trade Name Freq PRN Reason Stop Dose Admin Acetaminophen 650 mg 03/10/25 15:58 Acetaminophen 325 Mg Tablet PO Q4H PRN Mild Pain (1-3) Or Fever Acetaminophen 650 mg 03/10/25 17:00 03/11/25 13:26 Acetaminophen 325 Mg Tablet PO 650 mg TID DAVID Administration Acetaminophen/Codeine Phosphate 1 tab 03/10/25 15:58 03/10/25 20:38 Acetaminophen/Codeine (*Crx) 300/30 Mg Tablet PO 1 tab Q6H PRN Administration pain, severe 7-10 Amlodipine Besylate 10 mg 03/11/25 09:00 03/11/25 13:25 Amlodipine Besylate 10 Mg Tablet PO 10 mg DAILY DAVID Administration Apixaban 2.5 mg 03/10/25 21:00 03/11/25 13:26 Apixaban 2.5 Mg Tablet PO 2.5 mg Q12HR DAVID Administration Aspirin 81 mg 03/11/25 09:00 03/11/25 13:26 Aspirin 81 Mg Enteric Tablet PO 81 mg DAILY DAVID Administration Atorvastatin Calcium 20 mg 03/10/25 21:00 03/10/25 20:35 Atorvastatin 20 Mg Tablet PO 20 mg HS DAVID Administration Baclofen 5 mg 03/10/25 17:00 03/11/25 13:26 Baclofen 5 Mg Tablet PO 5 mg TID DAVID Administration Bisacodyl 10 mg 03/10/25 15:58 Bisacodyl 10 Mg Suppository RECTAL DAILY PRN constipation Carvedilol 25 mg 03/10/25 21:00 03/11/25 13:27 Carvedilol 25 Mg Tablet PO 25 mg Q12HR DAVID Administration Cinacalcet 90 mg 03/11/25 09:00 03/11/25 09:53 Cinacalcet 30 Mg Tablet PO Not Given DAILY DAVID Cyclobenzaprine HCl 10 mg 03/10/25 15:58 03/10/25 20:38 Cyclobenzaprine Hcl 10 Mg Tablet PO 10 mg Q8H PRN Administration muscle spasm Finasteride 5 mg 03/11/25 09:00 03/11/25 13:26 Finasteride 5 Mg Tablet PO 5 mg QAM DAVID Administration Furosemide 80 mg 03/10/25 17:00 03/11/25 09:53 Furosemide 80 Mg Tablet PO Not Given BID [facility] Gabapentin 100 mg 03/10/25 17:00 03/11/25 13:25 Gabapentin 100 Mg Capsule PO 100 mg TID [facility] Administration Albumin Human 50 mls @ 999 mls/hr 03/10/25 09:07 Albutein IVPB 04/09/25 09:06 Q10M PRN HYPOTENSION Insulin Aspart 4 units 03/10/25 16:30 03/11/25 13:26 Insulin Aspart (*Bkc) 100 Units/Ml SUB-Q Not Given TIDAC [facility] Insulin Glargine 6 units 03/11/25 09:00 03/11/25 09:54 Insulin Glargine (*Bkc) 100 Units/Ml SUB-Q Not Given DAILY [facility] Insulin Glargine 6 units 03/10/25 21:00 03/10/25 21:09 Insulin Glargine (*Bkc) 100 Units/Ml SUB-Q 6 units HS [facility] Administration Loperamide HCl 2 mg 03/10/25 15:58 Loperamide Hcl 2 Mg Capsule PO Q4H PRN loose stool Loratadine 10 mg 03/10/25 15:58 Loratadine 10 Mg Tablet PO DAILY PRN itching Loratadine 10 mg 03/11/25 09:00 03/11/25 09:54 Loratadine 10 Mg Tablet PO Not Given DAILY DAVID Losartan Potassium 100 mg 03/10/25 15:58 Losartan Potassium 100 Mg Tablet PO PRN PRN blood pressure Magnesium Citrate 296 ml 03/10/25 15:58 Magnesium Citrate 300 Ml Btl PO QAM PRN constipation Magnesium Hydroxide 30 ml 03/10/25 15:58 Magnesium Hydroxide Susp 30 Ml Udc PO HS PRN constipation Melatonin 3 mg 03/10/25 21:00 03/10/25 20:35 Melatonin 3 Mg Tablet PO 3 mg HS DAVID Administration Miscellaneous Information 0 each 03/10/25 00:01 03/11/25 02:22 Liraglutide Nonform Can Pt Bring From Home Or Hold While Here? XX 04/09/25 00:00 Not Given CLARIFY [facility] Non-Formulary Medication 1.2 mg 03/11/25 09:00 Liraglutide SUB-Q 04/10/25 08:59 DAILY [facility] Ondansetron HCl 4 mg 03/10/25 08:20 Ondansetron Inj 4 Mg/2 Ml Vial IV PUSH Q4H PRN Nausea Pentoxifylline 400 mg 03/10/25 18:00 03/10/25 18:42 Pentoxifylline 400 Mg Tabcr PO Not Given QPM [facility] Sevelamer Carbonate 3.2 gm 03/10/25 17:00 03/11/25 13:24 Sevelamer Carbonate 0.8 Gm Oral Powder Packet PO Not Given TIDWM [facility] Tamsulosin HCl 0.4 mg 03/10/25 21:00 03/10/25 20:35 Tamsulosin Hcl 0.4 Mg Capsule PO 0.4 mg QHS [facility] Administration Tramadol HCl 50 mg 03/10/25 17:00 03/11/25 13:24 Tramadol Hcl (*Crx) 50 Mg Tablet PO Not Given BID [facility] Umeclidinium [place] 2 puff 03/11/25 08:00 03/11/25 13:23 Umeclidinium [place] 62.5 Mcg Ellipta INHALATION Not Given DAILYRT [facility] Vitamin B Complex 1 cap 03/11/25 09:00 03/11/25 13:24 Vitamin B Complex Capsule PO Not Given DAILY [facility] Radiology Results: ITS Impressions Chest X-Ray 03/10/25 06:47 IMPRESSION: 1. Bronchial wall thickening. Given the pulmonary vascular congestion is could be related to peribronchial cuffing in the setting of minimal pulmonary edema. Differential would include bronchitis or reactive airway disease/asthma. Head CT 03/10/25 06:53 IMPRESSION: 1. 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 No acute intracranial process. 2. Age-related changes including moderate diffuse volume loss and moderate scattered white matter hypoattenuation consistent with chronic small vessel ischemic disease. 3. Sinus disease. Labs Labs: Laboratory Results - last 24 hr 03/10/25 03/11/25 20:57 17:11 POC Capillary Glucose 178 H 167 H
[2025-03-11] MEDS: FUROSEMIDE 80 MG TABLET PO (17:43)
[2025-03-11] MEDS: traMADol HCL (*CRX) 50 MG TABLET PO (17:43)
[2025-03-11] MEDS: PENTOXIFYLLINE 400 MG TABCR PO (17:43)
[2025-03-11] MEDS: SEVELAMER CARBONATE 0.8 GM ORAL POWDER PACKET 3.2 GM PO (17:44)
[2025-03-11] MEDS: INSULIN ASPART (*BKC) 100 UNITS/ML SUB-Q (17:44)
[2025-03-11] MEDS: ACETAMINOPHEN/CODEINE (*CRX) 300/30 MG TABLET 1 TAB PO (21:12)
[2025-03-11] MEDS: MELATONIN 3 MG TABLET PO (21:14)
[2025-03-11] MEDS: ATORVASTATIN 20 MG TABLET PO (21:14)
[2025-03-11] MEDS: TAMSULOSIN HCL 0.4 MG CAPSULE PO (21:15)
[2025-03-11] MEDS: INSULIN GLARGINE (*BKC) 100 UNITS/ML 6 UNITS SUB-Q (21:16)
[2025-03-11 22:17] LABS: Glucose Point of Care 150 mg/dl (65-105)
[2025-03-12] VITALS (21 sets, daily range): BP systolic 132–176; BP diastolic 58–82; PULSE 51–65; RESP 12–16; TEMP 36.4–37.1; O2SAT 91–98
[2025-03-12 06:19] LABS: Basophils Absolute Auto 0.1 K/mm3 (0.0-0.1); Eosinophils Absolute Auto 0.2 K/mm3 (0-0.3); Eosinophils Percent Auto 3.8 % (0-4.4); Hematocrit 33.8 % (42.0-52.0); Immature Granulocyte Absolute 0.02 K/mm3 (0.00-0.031); Immature Granulocyte Percent A 0.4 % (0-0.5); Lymphocytes Absolute Auto 0.61 K/mm3 (0.9-3.2); Lymphocytes Percent Auto 12.2 % (18.3-44.2); Mean Corpuscular HGB Conc 29.6 g/dl (32-36); Mean Corpuscular Hemoglobin 27.2 pg (26-34); Mean Corpuscular Volume 91.8 fl (80-100); Mean Platelet Volume 10.3 fl (7.4-10.4); Monocytes Absolute Auto 0.6 K/mm3 (0.1-0.6); Monocytes Percent Auto 12.8 % (2.6-8.5); Neutrophils Absolute Auto 3.5 K/mm3 (1.3-6.7); Neutrophils Percent Auto 69.8 % (45.5-73.1); Platelet Count Result 191 k/mm3 (150-375); Red Blood Count 3.68 M/mm3 (4.6-6.20); Red Cell Distribution Width 18.6 % (11.5-14.5)
[2025-03-12 06:37] LABS: Albumin Level 3.4 g/dL (3.5-5.1); Anion Gap 9 mmol/L (4-12); Blood Urea Nitrogen 47 mg/dL (9-20); Calcium 10.5 mg/dL (8.4-10.2); Carbon Dioxide 27 mmol/L (22-30); Chloride 99 mmol/L (98-107); Estimated CRCL calculation 10 ml/min; Estimated Glomerular Filt Rate 9; Glucose 161 mg/dL (65-110); Phosphorus 5.7 mg/dL (2.5-4.5); Potassium 4.2 mmol/L (3.4-5.0); Sodium 135 mmol/L (137-145)
[2025-03-12 07:00] LABS: MRSA (PCR) NOT DETECTED (NOT DETECTE)
[2025-03-12 07:02] LABS: Anisocytosis 1+; Hypochromasia 1+; Platelet Estimate Adequate (Adequate); Schistocytes None Seen
[2025-03-12 08:07] LABS: Glucose Point of Care 177 mg/dl (65-105)
[2025-03-12 11:31] LABS: Glucose Point of Care 113 mg/dl (65-105)
--- NOTE | 2025-03-12 11:38 | P.PNNP_ITS ---
Progress Note: A&P Assessment and Plan (1) End stage renal disease: Code(s): N18.6 - End stage renal disease Status: Chronic Assessment and Plan: * HD today * continue T/T/S outpatient dialysis schedule while hospitalized * follow electrolytes, volume status, and clearance (2) Acute respiratory failure with hypoxia: Code(s): J96.01 - Acute respiratory failure with hypoxia Status: Acute Assessment and Plan: * clinical improvement noted * due to several issues: * mild pulmonary edema * chronic CHF * history of COPD * reactive airway disease * bronchitis * other(?) * fluid removal/ultrafiltration with dialysis * dry ultrafiltration (DUF) on 03/11 (3.5L fluid removal achieved) * supplemental oxygen as needed (off currently) * follow respiratory status (3) Generalized weakness: Code(s): R53.1 - Weakness Status: Acute Assessment and Plan: * CT scan of head negative for acute pathology * Cervical CT earlier this month noted: * moderate neuroforaminal narrowing on left at C2 4-5 and on the right at C2- 3 * erosive changes at C3-C4 and C4-C5 disc stasis these appear chronic * Neurosurgery was consulted last admission -- plan for cervical MRI as an outpatient at a MRI compatible facility (has pacemaker) * continue supportive therapy (4) Atrial fibrillation: Code(s): I48.91 - Unspecified atrial fibrillation Status: Chronic Assessment and Plan: * rate control strategy * restarted on anticoagulation - Eliquis * apparently previously held due to issues with GI bleeding (5) Anemia: Code(s): D64.9 - Anemia, unspecified Status: Chronic Assessment and Plan: * due to ESRD * Epogen with HD * follow trend of H/H (6) Hypercalcemia: Code(s): E83.52 - Hypercalcemia Status: Acute Assessment and Plan: * noted on last hospitalization as well * no clear on etiology * sensipar/cinacalcet usually causes hypocalcemia * possibly due to prolonged immobilization/bed bound state? * adjusting calcium bath with dialysis to compensate (7) Essential (primary) hypertension: Code(s): I10 - Essential (primary) hypertension Status: Chronic Assessment and Plan: * running a bit high * fluid removal with HD/DUF may assist to some degree * resume home medications * follow trend of hemodynamics (8) IDDM (insulin dependent diabetes mellitus): Status: Chronic Assessment and Plan: * follow accu-cheks * glycemic control per hospitalist Not opposed to discharge from renal perspective if otherwise medically stable. Will continue to follow. L Subjective Date/time seen: 03/12/25 11:38 Interval history: Follow-up for end stage renal disease on hemodialysis. Tolerating dialysis at the time of my visit (seen on HD at 11:25AM); tolerated dry ultrafiltration yesterday without any issues or problems; resting comfortably when seen; no apparent distress noted; no other acute complaints voiced. Exam 2 Narrative: General: elderly WD/WN male in NAD Heart: normal S1 and S2; no rub Lungs: clear anteriorly; decreased at bases Abdomen: soft, nontender, nondistended, positive bowel sounds Extremities: no cyanosis or clubbing; trace edema Skin: warm and intact Objective Data Vital Signs Vital Signs: Vital Signs Temp Pulse Resp BP Pulse Ox 03/12/25 11:30 65 143/70 H 03/12/25 11:15 62 139/72 03/12/25 11:00 62 134/70 03/12/25 10:45 54 L 135/62 03/12/25 10:30 62 135/71 03/12/25 10:15 59 L 132/71 03/12/25 10:00 60 136/68 03/12/25 09:45 57 L 136/67 03/12/25 09:30 53 L 143/68 H 03/12/25 09:15 61 176/82 H 03/12/25 09:09 54 L 165/74 H 03/12/25 08:55 97.5 F L 53 L 12 163/73 H 97 03/12/25 04:36 98.7 F 59 L 16 141/58 H 91 03/11/25 21:12 78 03/11/25 20:48 99.3 F 68 16 153/59 H 92 03/11/25 13:57 97.5 F L 60 18 173/88 H 100 Intake/Output Intake/Output: Intake & Output 03/09/25 03/10/25 03/11/25 03/12/25 23:59 23:59 23:59 23:59 Intake Total 600 1356 500 Output Total 3600 3550 500 Balance -3000 -2194 0 Meds/Results Medications: Active Medications Generic Name Dose Route Start Last Admin Trade Name Freq PRN Reason Stop Dose Admin Acetaminophen 650 mg 03/10/25 15:58 Acetaminophen 325 Mg Tablet PO Q4H PRN Mild Pain (1-3) Or Fever Acetaminophen 650 mg 03/10/25 17:00 03/12/25 10:13 Acetaminophen 325 Mg Tablet PO Not Given TID DAVID Acetaminophen/Codeine Phosphate 1 tab 03/10/25 15:58 03/11/25 21:12 Acetaminophen/Codeine (*Crx) 300/30 Mg Tablet PO 1 tab Q6H PRN Administration pain, severe 7-10 Amlodipine Besylate 10 mg 03/11/25 09:00 03/11/25 13:25 Amlodipine Besylate 10 Mg Tablet PO 10 mg DAILY DAVID Administration Apixaban 2.5 mg 03/10/25 21:00 03/12/25 10:14 Apixaban 2.5 Mg Tablet PO Not Given Q12HR DAVID Aspirin 81 mg 03/11/25 09:00 03/11/25 13:26 Aspirin 81 Mg Enteric Tablet PO 81 mg DAILY DAVID Administration Atorvastatin Calcium 20 mg 03/10/25 21:00 03/11/25 21:14 Atorvastatin 20 Mg Tablet PO 20 mg HS DAVID Administration Baclofen 5 mg 03/10/25 17:00 03/12/25 10:14 Baclofen 5 Mg Tablet PO Not Given TID [facility] Bisacodyl 10 mg 03/10/25 15:58 Bisacodyl 10 Mg Suppository RECTAL DAILY PRN constipation Carvedilol 25 mg 03/10/25 21:00 03/12/25 10:15 Carvedilol 25 Mg Tablet PO Not Given Q12HR [facility] Cinacalcet 90 mg 03/11/25 09:00 03/11/25 09:53 Cinacalcet 30 Mg Tablet PO Not Given DAILY [facility] Cyclobenzaprine HCl 10 mg 03/10/25 15:58 03/10/25 20:38 Cyclobenzaprine Hcl 10 Mg Tablet PO 10 mg Q8H PRN Administration muscle spasm Epoetin David-epbx 10,000 units 03/12/25 18:15 03/12/25 12:09 Epoetin David-Epbx 10,000 Units/Ml Vial IV PUSH 03/12/25 18:16 10,000 units ONCE ONE Administration Finasteride 5 mg 03/11/25 09:00 03/11/25 13:26 Finasteride 5 Mg Tablet PO 5 mg QAM [facility] Administration Furosemide 80 mg 03/10/25 17:00 03/12/25 10:15 Furosemide 80 Mg Tablet PO Not Given BID [facility] Gabapentin 100 mg 03/10/25 17:00 03/12/25 10:16 Gabapentin 100 Mg Capsule PO Not Given TID DAVID Albumin Human 50 mls @ 999 mls/hr 03/10/25 09:07 Albutein IVPB 04/09/25 09:06 Q10M PRN HYPOTENSION Insulin Aspart 4 units 03/10/25 16:30 03/12/25 10:12 Insulin Aspart (*Bkc) 100 Units/Ml SUB-Q Not Given TIDAC [facility] Insulin Glargine 6 units 03/11/25 09:00 03/11/25 09:54 Insulin Glargine (*Bkc) 100 Units/Ml SUB-Q Not Given DAILY [facility] Insulin Glargine 6 units 03/10/25 21:00 03/11/25 21:16 Insulin Glargine (*Bkc) 100 Units/Ml SUB-Q 6 units HS [facility] Administration Loperamide HCl 2 mg 03/10/25 15:58 Loperamide Hcl 2 Mg Capsule PO Q4H PRN loose stool Loratadine 10 mg 03/10/25 15:58 Loratadine 10 Mg Tablet PO DAILY PRN itching Loratadine 10 mg 03/11/25 09:00 03/11/25 09:54 Loratadine 10 Mg Tablet PO Not Given DAILY [facility] Losartan Potassium 100 mg 03/10/25 15:58 Losartan Potassium 100 Mg Tablet PO PRN PRN blood pressure Magnesium Citrate 296 ml 03/10/25 15:58 Magnesium Citrate 300 Ml Btl PO QAM PRN constipation Magnesium Hydroxide 30 ml 03/10/25 15:58 Magnesium Hydroxide Susp 30 Ml Udc PO HS PRN constipation Melatonin 3 mg 03/10/25 21:00 03/11/25 21:14 Melatonin 3 Mg Tablet PO 3 mg HS DAVID Administration Miscellaneous Information 0 each 03/10/25 00:01 03/11/25 02:22 Liraglutide Nonform Can Pt Bring From Home Or Hold While Here? XX 04/09/25 00:00 Not Given CLARIFY [facility] Non-Formulary Medication 1.2 mg 03/11/25 09:00 Liraglutide SUB-Q 04/10/25 08:59 DAILY [facility] Ondansetron HCl 4 mg 03/10/25 08:20 Ondansetron Inj 4 Mg/2 Ml Vial IV PUSH Q4H PRN Nausea Pentoxifylline 400 mg 03/10/25 18:00 03/11/25 17:43 Pentoxifylline 400 Mg Tabcr PO 400 mg QPM [facility] Administration Sevelamer Carbonate 3.2 gm 03/10/25 17:00 03/12/25 10:13 Sevelamer Carbonate 0.8 Gm Oral Powder Packet PO Not Given TIDWM [facility] Tamsulosin HCl 0.4 mg 03/10/25 21:00 03/11/25 21:15 Tamsulosin Hcl 0.4 Mg Capsule PO 0.4 mg QHS [facility] Administration Tramadol HCl 50 mg 03/10/25 17:00 03/12/25 10:16 Tramadol Hcl (*Crx) 50 Mg Tablet PO Not Given BID [facility] Umeclidinium [place] 2 puff 03/11/25 08:00 03/12/25 08:48 Umeclidinium [place] 62.5 Mcg Ellipta INHALATION Not Given DAILYRT [facility] Vitamin B Complex 1 cap 03/11/25 09:00 03/11/25 13:24 Vitamin B Complex Capsule PO Not Given DAILY [facility] Radiology Results: ITS Impressions Head CT 03/10/25 06:53 IMPRESSION: 1. 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 No acute intracranial process. 2. Age-related changes including moderate diffuse volume loss and moderate scattered white matter hypoattenuation consistent with chronic small vessel ischemic disease. 3. Sinus disease. Chest X-Ray 03/12/25 08:30 Impression: Probable minimal pulmonary edema pattern. Labs Labs: Laboratory Tests 03/12/25 06:10 03/12/25 06:10 Calcium 10.5 H Phosphorus 5.7 H Albumin 3.4 L
[2025-03-12] MEDS: EPOETIN ALFA-EPBX 10,000 UNITS/ML VIAL 10000 UNITS IV PUSH (12:09)
--- NOTE | 2025-03-12 13:07 | PM.DS ---
DS: Admitting Diagnosis Discharge Date 03/12/25 Admitting Diagnosis Generalized weakness blurry vision DS: Discharge Diagnosis Discharge Diagnosis (1) Type 2 diabetes mellitus, with long-term current use of insulin: Qualifiers: Diabetes mellitus complication status: with neurologic complications Diabetes mellitus complication detail: with polyneuropathy Qualified Code(s): E11.42 - Type 2 diabetes mellitus with diabetic polyneuropathy; Z79.4 - oil heaterman (current) use of insulin Code(s): E11.9 - Type 2 diabetes mellitus without complications; Z79.4 - oil heaterman (current) use of insulin Status: Acute (2) Atrial fibrillation: Code(s): I48.91 - Unspecified atrial fibrillation Status: Chronic (3) Peripheral vascular disease: Onset Date: ~03/2023 Code(s): I73.9 - Peripheral vascular disease, unspecified Status: Acute (4) Dyslipidemia: Code(s): E78.5 - Hyperlipidemia, unspecified Status: Acute (5) CAD in [place] artery: Code(s): I25.10 - Atherosclerotic heart disease of [place] coronary artery without angina pectoris Status: Acute (6) Essential (primary) hypertension: Code(s): I10 - Essential (primary) hypertension Status: Chronic (7) End-stage renal disease on hemodialysis: Code(s): N18.6 - End stage renal disease; Z99.2 - Dependence on renal dialysis Status: Acute (8) Seizure disorder: Code(s): G40.909 - Epilepsy, unspecified, not intractable, without status epilepticus Status: Acute (9) Diabetic polyneuropathy: Code(s): E11.42 - Type 2 diabetes mellitus with diabetic polyneuropathy Status: Acute (10) Left cervical radiculopathy: Code(s): M54.12 - Radiculopathy, cervical region Status: Acute (11) COPD (chronic obstructive pulmonary disease): Qualifiers: COPD type: unspecified COPD Qualified Code(s): J44.9 - Chronic obstructive pulmonary disease, unspecified Code(s): J44.9 - Chronic obstructive pulmonary disease, unspecified Status: Chronic (12) Obstructive sleep apnea: Code(s): G47.33 - Obstructive sleep apnea (adult) (pediatric) Status: Acute Plan This is a 79-year-old male who presents to the ED from assisted for worsening shortness of breath generalized weakness and congestion. He also felt he had double vision earlier today also had slurred speech. He is scheduled to go for dialysis this a.m.. He has been compliant with his dialysis session. In the ED his vitals were stable except for mild hypertension. Laboratory evaluation showed WBC of 7 hemoglobin of 10.5 platelet of 223 sodium 132 potassium 4.3 chloride 91 bicarbonate 32 BUN 60 creatinine 6.2 blood sugar of 132. BNP more than 30,000 influenza RSV COVID swab was negative LFTs were normal. Urinalysis was negative for UTI. EKG showed atrial fibrillation with right bundle branch block Chest x-ray showed bronchial wall thickening. CT head showed small old lacunar infarcts in the bilateral mid brain. No acute intracranial process. Age-related changes including moderate diffuse volume loss and moderate scattered white matter hyponatremia griffin consistent with chronic small-vessel ischemic disease and sinus disease was noted. He was recently admitted for similar complaint. CTA at that time showed no occlusion or significant stenosis. 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 Neuro surgical consultation at that time had decided to get possible cervical MRI at pacemaker compatible facility and not to pursue CT myelogram. He is admitted in this setting for further evaluation and management. Generalized weakness/blurred vision CT head is negative. He has suspected cervical radiculopathy. Cervical CT from December 2024 showed chronic compression fracture of C4 and C5 along with multilevel facet joint disease and uncovertebral joint osteoarthritic changes. Could not get MRI due to pacemaker device. CT cervical spine repeat on February 2025 showed moderate neuroforaminal narrowing on left at C2 4-5 and on the right at C2-3. Erosive changes at C3-C4 and C4-C5 disc stasis these appear chronic. Bilateral shoulder x-ray October 2024 were unremarkable. Neurosurgery was consulted last admission plan for cervical MRI as an outpatient basis at MRI compatible facility. Chronic CHF diastolic. Bilateral upper extremity weakness cervical radiculopathy related versus shoulder related will consult orthopedics Bronchitis End-stage renal disease on hemodialysis nephrology consulted Chronic respiratory failure on oxygen at home Chronic anemia with no signs of bleeding Type 2 diabetes on insulin Atrial fibrillation anticoagulation intermittent neurological symptoms be related to this. His chads Vasc score is at least 5. Will start Eliquis. 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 Patient's symptoms have resolved. Will do CTA of the head and carotid ultrasound to further evaluate and further recommendation to follow. DS: Summary Hospital Course Hospital Course: 79-year-old male with end-stage renal disease on hemodialysis presented with complaint of generalized weakness and blurry vision, patient had dialysis today, states feeling much denies any chest pain or shortness of breath, patient with complaint of blurry vision to further evaluate had a CT scan of the head which did not show any acute injury, due to pacemaker patient is unable to have an MRI. Patient's symptoms have resolved. patient was seen by his powerhouse attendant and clinically stable and can be discahrged. will discharge today. Time Spent with Patient Time attestation: Total time spent providing and/or coordinating discharge services: Exam Narrative: Patient is comfortable, NAD HEENT: eyes are clear and none icteric LUNGS:CTA HEART: RR S1S2 ABD: BS+, Soft and nontender Lower extremities: no edema SKIN: nonjaundiced Neuro: grossly intact. DS: Data Data Completed and Pending Labs on day of discharge: Labs from last 24 hours 03/12/25 03/12/25 03/12/25 11:24 08:04 06:10 WBC 5.0 RBC 3.68 L Hgb 10.0 L Hct 33.8 L MCV 91.8 MCH 27.2 MCHC 29.6 L RDW 18.6 H Plt Count 191 MPV 10.3 Immature Gran % (Auto) 0.4 Neut % (Auto) 69.8 Lymph % (Auto) 12.2 L [place] % (Auto) 12.8 H Eos % (Auto) 3.8 Baso % (Auto) 1.0 Lymph # (Auto) 0.61 L [place] # (Auto) 0.6 Eos # (Auto) 0.2 Baso # (Auto) 0.1 Abs Immat Gran (auto) 0.02 Absolute Neuts (auto) 3.5 Absolute Nucleated RBC 0.000 Band Neutrophils % Not Reportable Nucleated RBC % 0.0 Platelet Estimate Adequate Hypochromasia 1+ Anisocytosis 1+ Schistocytes None seen Sodium 135 L Potassium 4.2 Chloride 99 Carbon Dioxide 27 Anion Gap 9 BUN 47 H Creatinine 5.82 H Estim Creat Clear Calc 10 Estimated GFR 9 L Glucose 161 H POC Capillary Glucose 113 H 177 H Calcium 10.5 H Phosphorus 5.7 H Albumin 3.4 L Nasal MRSA (PCR) 03/12/25 03/11/25 03/11/25 05:44 20:51 17:11 WBC RBC Hgb Hct MCV MCH MCHC RDW Plt Count MPV Immature Gran % (Auto) Neut % (Auto) Lymph % (Auto) [place] % (Auto) Eos % (Auto) Baso % (Auto) Lymph # (Auto) [place] # (Auto) Eos # (Auto) Baso # (Auto) Abs Immat Gran (auto) Absolute Neuts (auto) Absolute Nucleated RBC Band Neutrophils % Nucleated RBC % Platelet Estimate Hypochromasia Anisocytosis Schistocytes Sodium Potassium Chloride Carbon Dioxide Anion Gap BUN Creatinine Estim Creat Clear Calc Estimated GFR Glucose POC Capillary Glucose 150 H 167 H Calcium Phosphorus Albumin Nasal MRSA (PCR) Not detected Discharge Plan Discharge Attending physician on discharge: Florentino Ennis Consulting providers: Martina Booth; Malick Hewitt; Justina Bishop; Curt Grady; Korey Amor; Ronny Norwood Discharging Clinician: Gregorio Siegel Patient Disposition: SNF Activity: as tolerated Diet: heart healthy and low sodium Discharge Instructions: patient to follow up with his powerhouse attendant and will have scheduled dialysis, patient to follow up with his primary care provider as soon as possible, patient is instructed if any symptoms redevelop to go to nearest ER. Patient Instructions: Antibiotic Form Patient Language: Egyptian Stand Alone Forms: General Discharge Information Follow-up/Referrals: Martina Booth MD [Physician] - Radha Carrion MD [Primary Care Provider] - Discharge Medications: Continued carvedilol 25 mg tablet 25 mg PO BID aspirin 81 mg tablet,delayed release (DR/EC) 81 mg PO DAILY insulin lispro 100 unit/mL insulin pen 4 unit subcut .TIDAC loratadine [Claritin] 10 mg tablet 10 mg PO DAILY insulin glargine [Lantus Solostar U-100 Insulin] 100 unit/mL (3 mL) insulin pen 6 unit subcut HS atorvastatin 20 mg tablet 20 mg PO HS tamsulosin 0.4 mg Capsule 0.4 mg PO QHS Qty: 30 0RF furosemide 80 mg Tablet 80 mg PO BID Qty: 60 0RF finasteride [Proscar] 5 mg Tablet 5 mg PO QAM Qty: 30 0RF acetaminophen-codeine 300-30 mg tablet 1 tablet PO Q6H PRN (Reason: pain, severe) bisacodyl [Laxative (bisacodyl)] 10 mg suppository 10 mg RECTAL DAILY PRN (Reason: constipation) Rx Instructions: If no results from the MOM. magnesium citrate [Citroma] Solution 296 ml PO .AM PRN (Reason: constipation) Rx Instructions: If no results after enema. Fleet Enema 19-7 gram/118 mL enema 118 ml RECTAL DAILY PRN (Reason: constipation) Rx Instructions: If no results 1 day after the bisacodyl suppository was administered. gabapentin 100 mg capsule 100 mg PO TID liraglutide 0.6 mg/0.1 mL (18 mg/3 mL) pen injector 1.2 mg subcut HS Rx Instructions: To start on 02/20/25. magnesium hydroxide [Milk of Magnesia] 400 mg/5 mL suspension 30 ml PO HS PRN (Reason: constipation) Rx Instructions: If no bowel movement in 3 days. vitamin B complex Capsule 1 cap PO DAILY Allergy Relief (loratadine) 10 mg capsule 10 mg PO DAILY PRN (Reason: itching) amlodipine 10 mg tablet 10 mg PO DAILY cinacalcet 90 mg PO DAILY acetaminophen 325 mg Tablet 650 mg PO Q4H PRN (Reason: Mild Pain (1-3) Or Fever) Qty: 60 0RF melatonin 3 mg tablet 3 mg PO HS baclofen 5 mg tablet 5 mg PO TID acetaminophen 325 mg tablet 650 mg PO TID tramadol 50 mg tablet 50 mg PO BID Incruse Ellipta 62.5 mcg/actuation blister with device 1 inh inhalation DAILY Combivent Respimat 20-100 mcg/actuation mist 1 puff inhalation Q6H PRN (Reason: shortness of breath or wheezing) losartan 100 mg tablet 100 mg PO DAILY PRN (Reason: blood pressure) Rx Instructions: give 100mg as needed for HTN give if SP>160 or DP >90 loperamide 2 mg capsule 2 mg PO Q4H PRN (Reason: loose stool) Rx Instructions: administer after each loose stool until symptoms controlled; do not exceed 8 mg per 24 hrs cyclobenzaprine 10 mg tablet 10 mg PO Q8H PRN (Reason: muscle spasm) pentoxifylline 400 mg tablet extended release 400 mg PO QPM Rx Instructions: must administer with a meal/food No Action sevelamer carbonate 0.8 gram Powder In Packet 0.8 g PO TIDWM Date of admission: 03/11/25 10:51 Primary Care Provider: Radha Carrion Admitting Provider: Anatoly Daly Attending physician on admission: Gregroio Siegel Condition: Stable
[2025-03-12] MEDS: GABAPENTIN 100 MG CAPSULE PO (14:00)
[2025-03-12] MEDS: LORATADINE 10 MG TABLET PO (14:00)
[2025-03-12] MEDS: VITAMIN B COMPLEX CAPSULE 1 CAP PO (14:00)
[2025-03-12] MEDS: BACLOFEN 5 MG TABLET PO (14:00)
[2025-03-12] MEDS: CINACALCET 30 MG TABLET 90 MG PO (14:00)
[2025-03-12] MEDS: ACETAMINOPHEN 325 MG TABLET 650 MG PO (14:00)
[2025-03-12] MEDS: ASPIRIN 81 MG ENTERIC TABLET PO (14:01)
[2025-03-12] MEDS: FINASTERIDE 5 MG TABLET PO (14:01)
[2025-03-12] MEDS: SEVELAMER CARBONATE 0.8 GM ORAL POWDER PACKET 3.2 GM PO (14:02)
[2025-03-12 16:56] LABS: Glucose Point of Care 165 mg/dl (65-105)
== END 2025-03-12 17:08 | DRG 291 ==
LOC: ANHED 08:23 → ANH3MEDSUR 09:00
PROVIDERS: Emergency Medicine; Internal Medicine; Internal Medicine Nephrology; Admitting Provider Internal Medicine; Emergency Provider Student in an Organized Health Care Education/Training Program; PCP Family Medicine; Visit Provider Family Medicine
DX: I13.2 Hypertensive heart and chronic kidney disease with heart failure and with stage 5 chronic kidney disease, or end stage renal disease (principal); N18.6 End stage renal disease; I48.20 Chronic atrial fibrillation, unspecified; J96.10 Chronic respiratory failure, unspecified whether with hypoxia or hypercapnia; I50.32 Chronic diastolic (congestive) heart failure; I25.10 Atherosclerotic heart disease of native coronary artery without angina pectoris; E11.22 Type 2 diabetes mellitus with diabetic chronic kidney disease; E11.42 Type 2 diabetes mellitus with diabetic polyneuropathy; D63.1 Anemia in chronic kidney disease; E11.51 Type 2 diabetes mellitus with diabetic peripheral angiopathy without gangrene; E78.5 Hyperlipidemia, unspecified; E83.52 Hypercalcemia; J44.9 Chronic obstructive pulmonary disease, unspecified; M54.12 Radiculopathy, cervical region; M54.9 Dorsalgia, unspecified; G89.29 Other chronic pain; G47.33 Obstructive sleep apnea (adult) (pediatric); G40.909 Epilepsy, unspecified, not intractable, without status epilepticus; N40.0 Benign prostatic hyperplasia without lower urinary tract symptoms; Z20.822 Contact with and (suspected) exposure to COVID-19; Z99.2 Dependence on renal dialysis; Z79.82 Long term (current) use of aspirin; Z79.4 Long term (current) use of insulin; Z95.0 Presence of cardiac pacemaker; Z95.1 Presence of aortocoronary bypass graft; Z87.891 Personal history of nicotine dependence; Z99.81 Dependence on supplemental oxygen
CPT/HCPCS: 36415; 70450; 71045; 80053; 80069; 81001; 82948; 83880; 85025; 86706; 87340; 87637; 87641; 93005; 94640; 96361; 96374; 96375; 99285; A9270; G0257; G0378; J1644; J1815; J1938; J7030; Q5105

== ENCOUNTER 2025-03-14 06:27 | Inpatient (IN) | payer MEDICARE, OTHER, SELFPAY ==
[2025-03-14] VITALS (33 sets, daily range): BP systolic 101–176; BP diastolic 52–92; PULSE 57–91; RESP 12–24; TEMP 36.2–37.1; O2SAT 93–100; BMI 25.2; BMI 28.4
--- NOTE | ~2025-03-14 | XR_ITS ---
MODIFIED ESOPHAGRAM HISTORY: Coughing while eating TECHNIQUE: Modified barium esophagram was performed on 03/17/2025. I administered fluoroscopy and perf ormed the exam with speech pathologist. Patient was seated for lateral fluoroscopic imaging for slim stion of thin liquids, pudding, solids and quantified amounts, followed by thin liquids in uncontroll ed amounts. This was recorded on tape. A single fluoroscopic spot image was also recorded. The DAP fo r this procedure was 1.6 Gycm2. The amount of fluoroscopy time used during this procedure was 2.1 min utes. FINDINGS: Oral stage: Adequate function. Pharyngeal stage: Adequate function. Cervical/esophageal stage: Adequate function. IMPRESSION: Patient tolerated regular consistency oral feedings in the upright position. Please dillon elate with speech pathologist findings and specific feeding recommendations. Reviewed, dictated and finalized at location A. IMPRESSION: Patient tolerated regular consistency oral feedings in the upright position. Please correlate with speech pathologist findings and specific feedi ng recommendations.
--- NOTE | ~2025-03-14 | CT_ITS ---
EXAMINATION: CT brain wo con DATE: 03/14/2025 07:21 INDICATION: Weakness TECHNIQUE: Computed tomography (CT) of the head was performed without intravenous contrast. Sagittal and coronal reconstructions were performed. The mA was adjusted according to patient size. Iterative reconstruction technique was employed. The dose-length product was 605.33 mGy-cm. COMPARISON: head CT dated 03/10/2025 FINDINGS: Small old lacunar infarcts at the left thalamus, bilateral basal ganglia including the bilateral lent iform nuclei and left caudate nucleus. No acute intracranial hemorrhage, acute infarction or abnormal extra axial fluid collection. There is moderate scattered white matter hypoattenuation consistent wi th chronic small vessel ischemic disease. Symmetric prominence of the sulci and ventricles consistent with moderate age-appropriate diffuse cerebral volume loss. No mass/mass effect. Changes of bilatera l intraocular lens replacement. The orbits and mastoid air cells are normal. Complete opacification o f the right maxillary sinus and mucosal thickening in the bilateral ethmoid and left maxillary sinuse s. Intracranial calcified cerebral atherosclerosis is noted. Developmentally unfused anterior ring of C1. IMPRESSION: 1. 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 No acute intracranial process. 2. Age-related changes including moderate diffuse volume loss and moderate scattered white matter hyp oattenuation consistent with chronic small vessel ischemic disease. 3. Sinus disease. Reviewed, dictated and finalized at location A. IMPRESSION: 1. 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 No acute intracranial process. 2. Age-related changes including moderate diffuse volume loss and moderate scat tered white matter hypoattenuation consistent with chronic small vessel ischemi c disease. 3. Sinus disease.
--- NOTE | ~2025-03-14 | XR_ITS ---
EXAMINATION: XR chest 1V portable DATE: 03/14/2025 06:50 INDICATION: Weakness TECHNIQUE: frontal view of the chest was obtained. COMPARISON: Chest radiograph dated 03/12/2025 FINDINGS: Unchanged linear discoid atelectasis at the lateral left midlung zone. Pulmonary vascular congestion without mayra pulmonary edema. No pleural effusion or pneumothorax. The cardiomediastinal silhouette is normal. Median sternotomy wires and mediastinal surgical clips are seen, likely from prior coronar y artery bypass grafting. Left subclavian vascular stenting. Left pectoral implantable cardiac monito r. IMPRESSION: 1. Pulmonary vascular congestion with no other acute cardiopulmonary disease. Reviewed, dictated and finalized at location A.
--- NOTE | 2025-03-14 06:33 | ECG_ITS ---
Test Date: 2025-03-14 06:27:26 Measurements Intervals [place] Rate: 67 P: 0 WA: 0 QRS: 259 QRSD: 162 T: 1 QT: 449 QTc: 475 Interpretive Statements ATRIAL FIBRILLATION RIGHT BUNDLE BRANCH BLOCK [120+ ms QRS DURATION, UPRIGHT V1, 40+ ms S IN I/aVL/V4/V5/V6] Compared to ECG 03/10/2025 06:23:56 NO SIGNIFICANT CHANGES Electronically Signed On 03-14-2025 17:13:39 CDT by Wei Tran M.D.
[2025-03-14 06:48] LABS: Basophils Absolute Auto 0.1 K/mm3 (0.0-0.1); Basophils Percent Auto 0.9 % (0.2-1.2); Eosinophils Absolute Auto 0.2 K/mm3 (0-0.3); Eosinophils Percent Auto 3.1 % (0-4.4); Hematocrit 36.2 % (42.0-52.0); Hemoglobin 10.2 g/dL (14.0-18.0); Immature Granulocyte Absolute 0.03 K/mm3 (0.00-0.031); Immature Granulocyte Percent A 0.5 % (0-0.5); Lymphocytes Absolute Auto 0.48 K/mm3 (0.9-3.2); Lymphocytes Percent Auto 8.2 % (18.3-44.2); Mean Corpuscular HGB Conc 28.2 g/dl (32-36); Mean Corpuscular Hemoglobin 26.8 pg (26-34); Mean Platelet Volume 10.8 fl (7.4-10.4); Monocytes Absolute Auto 0.5 K/mm3 (0.1-0.6); Monocytes Percent Auto 9.2 % (2.6-8.5); Neutrophils Absolute Auto 4.6 K/mm3 (1.3-6.7); Neutrophils Percent Auto 78.1 % (45.5-73.1); Platelet Count Result 193 k/mm3 (150-375); Red Blood Count 3.81 M/mm3 (4.6-6.20); Red Cell Distribution Width 18.6 % (11.5-14.5); White Blood Count 5.8 K/mm3 (4.5-10.0)
[2025-03-14 06:55] LABS: Alanine Aminotransferase 11 U/L (6-50); Albumin Level 3.7 g/dL (3.5-5.1); Alkaline Phosphatase 54 U/L (38-126); Anion Gap 7 mmol/L (4-12); Aspartate Amino Transferase 13 U/L (17-59); Bilirubin,Total 0.3 mg/dL (0.2-1.3); Blood Urea Nitrogen 36 mg/dL (9-20); Calcium 10.8 mg/dL (8.4-10.2); Carbon Dioxide 29 mmol/L (22-30); Chloride 103 mmol/L (98-107); Estimated CRCL calculation 11 ml/min; Estimated Glomerular Filt Rate 10; Glucose 124 mg/dL (65-110); Lactic Acid Reflex 1.1 mmol/L (0.7-2.0); Potassium 4.7 mmol/L (3.4-5.0); Sodium 139 mmol/L (137-145)
[2025-03-14 06:59] LABS: Anisocytosis 1+; Hypochromasia 1+; Ovalocytes 1+; Platelet Estimate Adequate (Adequate); Schistocytes None Seen
--- NOTE | 2025-03-14 07:15 | PCRCNOTE ---
Arrived to draw ABG and Pt. had already been taken for CT
--- OUTSIDE RECORDS SUMMARY | 2025-03-14 07:20 | XMS_ITS | Encounter Summary ---
Author Organization [facility] Health Address [address] [place] [address] Care Team Providers Care Management Liaison Name Role Phone Mariza Carrion MD Primary Care Provider Encounter Details Date Type Department Care Team (Late Contact Info) Description 06/03/2018 [facility] Outpatient Visit [facility] [address] [place] [address] [place] [id number] [facility] [address] [place] [id number] Social History Tobacco Use Types Packs/Day [...] Info) Description 03/23/2025 8:00 AM CDT Appointment [facility] [address] [facility], [address] [place] [address] [place] [address] [facility] [address] [place] [address] documented as of this encounter Visit Diagnoses Not on filedocumented in this encounter Care Teams Management Liaison Relationship Specialty Start Date End Date Mariza Carrion MD [address] [place] [phone] PCP - General Family Medicine 08/26/18 documented as of this encounter
--- OUTSIDE RECORDS SUMMARY | 2025-03-14 07:20 | XMS_ITS ---
Author Organization [facility] Address [address] [place] [id number] Care Team Providers Care Adjunct Political Science Instructor Name Role Phone Efren Hoyos MD Unavailable Dank Hicks MD Unavailable [phone] Mariza Carrion MD Primary Care Provider Dialysis [...] POCT HEMOGLOBIN A1C Routine 11/24/2024 10:01 AM PHYSICS DEPARTMENT CHAIR Type 2 diabetes mellitus with hyperglycemia, with long-term current use of insulin (CMS/HCC) EGFR Routine 10/25/2024 5:48 AM PHYSICS DEPARTMENT CHAIR HEPATITIS PANEL, ACUTE Routine 10/23/2024 2:45 PM PHYSICS DEPARTMENT CHAIR HM DIABETES EYE EXAM Routine 08/13/2024 9:40 AM CDT ALBUMIN CREATININE RATIO, URINE Routine 03/10/2024 8:46 AM CDT Type 2 diabetes mellitus with hyperglycemia, with long-term current use of insulin (CMS/HCC) LIPID PANEL Routine 03/03/2024 9:29 AM CDT Type 2 diabetes mellitus with hyperglycemia, with long-term current use of insulin ([facility]) Hyperlipidemia associated with type 2 diabetes mellitus ([facility]) CT ABDOMEN PELVIS WO CONTRAST Schedule Routine, Read Routine (OP Routine) 12/05/2021 11:53 AM PHYSICS DEPARTMENT CHAIR End stage renal disease (HCC) from Last [...] hyperglycemia, with long-term current use of insulin ([facility]) Use to test glucose 5 times daily 450 each 2 04/03/20 18 Active lancets (freestyle) 28 gauge miscIndications:T ype 2 diabetes mellitus with hyperglycemia, with long-term current use of insulin ([facility]) Use to test glucose 5 [...] hyperglycemia, with long-term current use of insulin ([facility]) Change sensor every 14 days [...] 12/09/2019 Assessment & Plan (09/03/2023 9:28 AM PHYSICS DEPARTMENT CHAIR): Chronic problem. [facility] [place]: //Saturdays. LUE fistula. Assessment & Plan (03/05/2023 9:59 AM CDT): Chronic problem. [facility] in [place]: //Saturdays. LUE fistula. ESRD on dialysis 05/22/2019 Hyperlipidemia associated with type 2 diabetes fouzia victoria 05/22/2019 Assessment & Plan (11/24/2024 10:10 AM PHYSICS DEPARTMENT CHAIR): Chronic problem. Controlled on current Atorvastatin 20mg. Last lipid panel: 03/03/24 LDL=33, TG=75. Assessment & Plan (03/03/2024 8:45 AM CDT): Chronic problem. Controlled on current Atorvastatin 20mg. Last lipid panel: 03/05/23 LDL=57, JJ=939. Will update labs today. Does not mychart. Verified phone #/address to contact re: results. Assessment & Plan (09/03/2023 9:28 AM PHYSICS DEPARTMENT CHAIR): Chronic problem. Controlled on current Atorvastatin 20mg. Last lipid panel: 03/05/23 LDL=57, FV=550. Assessment & Plan (03/05/2023 9:53 AM CDT): Chronic problem. Controlled on current Atorvastatin 20mg. Last lipid panel: 12/05/21 LDL=36, QE=284. Will update labs today. Verified phone #/address to contact re: results. Assessment & Plan (11/02/2022 2:47 PM PHYSICS DEPARTMENT CHAIR): Chronic, well controlled Low fat Low cholesterol [...] Lipitor Assessment & Plan (09/07/2020 2:26 PM PHYSICS DEPARTMENT CHAIR): Goal of treatment , LDL cholesterol less [...] panel Assessment & Plan (12/09/2019 2:03 PM PHYSICS DEPARTMENT CHAIR): Very high TG Add Vascepa Assessment & [...] statin therapy Coronary artery disease invo [place] coronary artery of creek heart without angina pectoris 10/04/2017 Hx of CABG 10/04/2017 Class 2 severe obesity due t o excess calories with serious comorbidity and body mass index (BMI) of 38.0 to 38.9 in adult 05/22/2017 Assessment & Plan (10/24/2018 12:58 PM PHYSICS DEPARTMENT CHAIR): Making progress with diet efforts. Continue Assessment & Plan (02/08/2018 11:01 AM CDT): Importance of following diet and exercising discussed. Hypertension associated with diabetes 05/22/2017 Assessment & Plan (11/24/2024 10:11 AM PHYSICS DEPARTMENT CHAIR): Chronic problem. Controlled on current losartan 100mg daily, amlodipine 10mg daily Assessment & Plan (03/03/2024 8:45 AM CDT): Chronic problem. BP elevated upon arrival. Controlled on current Carvedilol 25mg bid, losartan 100mg daily. No changes at this time. Will update labs today. Does not mychart. Verified phone #/address to contact re: results. Assessment & Plan (09/03/2023 9:28 AM PHYSICS DEPARTMENT CHAIR): Chronic problem. BP elevated upon arrival. Controlled [...] renal Assessment & Plan (10/24/2018 12:57 PM PHYSICS DEPARTMENT CHAIR): Controlled. Continue current medication plan and follow up with cardiology Assessment & Plan (06/18/2018 2:30 PM CDT): BP controlled on current medication plan. Continue follow up with nephrology Assessment & Plan (02/08/2018 11:00 AM CDT): Continue same medication Assessment & Plan (12/11/2017 10:24 AM PHYSICS DEPARTMENT CHAIR): Goal blood pressure is less than 140/85 [...] mellitus Assessment & Plan (11/24/2024 10:16 AM PHYSICS DEPARTMENT CHAIR): Chronic problem, controlled on current regimen. 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 Assessment & Plan (09/03/2023 9:27 AM PHYSICS DEPARTMENT CHAIR): Chronic problem, controlled on current regimen. 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 Assessment & Plan (03/05/2023 10:13 AM CDT): Chronic problem, controlled on current regimen. 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 Will update labs today. Verified phone #/address to contact re: results. Assessment & Plan (11/02/2022 2:43 PM PHYSICS DEPARTMENT CHAIR): Well controlled, with risk of hypoglycemia Insuli [...] Ross Assessment & Plan (09/07/2020 2:26 PM PHYSICS DEPARTMENT CHAIR): Hba1c was Lab Results Component Value Date [...] Trulicity. Assessment & Plan (12/09/2019 2:03 PM PHYSICS DEPARTMENT CHAIR): Your Hba1c today was: Lab Results Component Value Date HGBA1C 9.3 12/09/2019 meaning a 3 month average sugar of : 224 Your goal hba1c is under 7.0 to prevent terminal makeup operator diabetes complications ( eye , kidney [...] hypoglycemia. Assessment & Plan (10/24/2018 1:00 PM PHYSICS DEPARTMENT CHAIR): Stable BG pattern 100-140 reported since last adjustment to plan. No change today. BG goals reviewed. Advised to lower Lantus by 2 units if FBG are < 100 x 2 days/wk. For planned activity, reduce Humalog dose by 1/2 at preceding meal. Assessment & Plan (09/19/2018 11:11 AM PHYSICS DEPARTMENT CHAIR): Your Hba1c today was: Lab Results Component Value Date HGBA1C 5.1 09/19/2018 meaning a 3 month average sugar of : 81 Your goal hba1c is under 7.0 to prevent long-term diabetes complications ( eye , kidney and [...] time. Assessment & Plan (12/11/2017 10:47 AM PHYSICS DEPARTMENT CHAIR): Hba1c was .5.4 Today, 1800 calorie, consistent [...] L[facility]us by 5 [facility]. [facility] & Plan (05/22/2017 11:37 AM [...] drink = 0.6 oz pur e alcohol) [facility] [employer] Answer Date Recorded In the past 12 months has [employer], gas, oil, or water [employer] threatened to shut off services in your [...] often do you attend chur ch or druze services? Never 10/23/2024 Do you belong to any clubs o r organizations such as episcopal groups, unions, fraternal or athletic groups, or [...] in the past 12 [facility], were you homeless or living in a [facility] (including now)? No 10/23/2024 Personal Safety Answer Date Recorded Have you ever been in or are you currently in a harmful physical or emotional relationship or is someone making you feel afraid or unsafe? Denies 10/22/2024 Sex and Gender Information Value Date Recorded Sex Assigned at Not on file Legal Sex Male 7:27 PM PHYSICS DEPARTMENT CHAIR Gender Identity Not on file Sexual Orientation Not on file Last Filed Vital Signs Vital Sign Reading Time Taken Comments Blood Pressure 102/58 11/24/2024 9:58 AM PHYSICS DEPARTMENT CHAIR Pulse 75 11/24/2024 9:58 AM PHYSICS DEPARTMENT CHAIR Temperature 36.3 C (97.3 F) 10/25/2024 2:15 PM PHYSICS DEPARTMENT CHAIR Respiratory Rate 20 11/24/2024 9:58 AM PHYSICS DEPARTMENT CHAIR Oxygen Saturation 100% 10/25/2024 1:15 PM PHYSICS DEPARTMENT CHAIR Inhaled Oxygen Concentration - - Weight 91.3 kg (201 lb 4.5 oz) 10/22/2024 8:29 P M PHYSICS DEPARTMENT CHAIR Height 170.2 cm (5' 7.01) 11/24/2024 9:58 AM CS T Body Mass Index 31.52 10/22/2024 8:29 PM PHYSICS DEPARTMENT CHAIR Results * DEVICE CHECK - IN OFFICE [...] * POCT hemoglobin A1c (11/24/2024 10:01 AM PHYSICS DEPARTMENT CHAIR) Hemoglobin A1C, POC 4.9 4.0 - 5.6 % Blood 11/24/2024 10:0 1 AM PHYSICS DEPARTMENT CHAIR us Bertha Pinto NP POINT OF CARE TEST ORDERA BLES Final Result * (ABNORMAL) eGFR (10/25/2024 5:48 AM PHYSICS DEPARTMENT CHAIR) eGFR 9(L) >=60 mL/min/1. 73 m2 Comment: [...] last reviewed 2021. Blood 10/25/2024 5:48 AM PHYSICS DEPARTMENT CHAIR 10/25/2024 6:03 AM PHYSICS DEPARTMENT CHAIR Raisa Scherer NP LAB BLOOD ORDERABLES Jeaneth l Result [facility] [id number] Department [place] [address] * Hepatitis panel, acute Blood (10/23/2024 2:45 PM PHYSICS DEPARTMENT CHAIR) Hep A IgM Nonreactive Nonreactive Comment: Interpretive [...] 20. Hep C Ab Nonreactive Nonreactive [facility] Comment: Interpretive Data Nonreactive: Antibodies to [...] revised on 2020. HepBsAg Nonreactive Nonreactive [facility] Blood 10/23/2024 2:45 PM PHYSICS DEPARTMENT CHAIR 10/23/2024 2:46 PM PHYSICS DEPARTMENT CHAIR Sherrill Christianson MD LAB MICROBIOLOGY - GENERAL ORDERABLES Final Result Performing Organization Address [facility] Co de Phone Number [facility] [id number] Department [place] [address] * (ABNORMAL) DIABETES EYE EXAM (08/13/2024 9:40 AM CDT) Historical Provider [facility] Edited Result - Final * (ABNORMAL) Albumin Creatinine Ratio, Urine (03/10/2024 8:46 AM CDT) Albumin Ur 3,169.5 mg/L Comment: Interpretive Data No reference range established. Current interpretive data was last revised 2019. Creatinine Ur 47.7 mg/dL [facility] Comment: Interpretive Data No reference range established. Current interpretive data was last revised 2019. Albumin Creatinine Ratio, Ur 6,645(H) 1 - 29 mg/g [facility] Urine 03/10/2024 8:46 AM CDT 03/11/2024 9:11 AM CDT Bertha Pinto NP LAB URINE ORDERABLES Jeaneth l Result Performing Organization Address [facility]/ZIP Co de Phone Number [facility] [id number] Department [place] [address] * (ABNORMAL) Lipid panel (03/03/2024 9:29 AM [...] 03/03/2024 4:40 PM CDT us Bertha Pinto [employer]IN[employer]EL[employer] LAB BLOOD ORDERABLES Jeanteh l Result [facility] [id number] [place] [address] * CT Abdomen Pelvis WO Contrast (12/05/2021 11:53 AM PHYSICS DEPARTMENT CHAIR) Anatomical Region Laterality Modality Body N/A Computed Tomogra phy 12/05/2021 12:0 4 PM PHYSICS DEPARTMENT CHAIR Impressions 12/05/2021 12:04 PM PHYSICS DEPARTMENT CHAIR Bone windows show no suspicious lytic or blastic lesions. IMPRESSION: 1. 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 2. 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 Electronically signed by: Ryan Cameron M.D. Narrative 12/05/2021 12:04 PM PHYSICS DEPARTMENT CHAIR EXAMINATION: Computed tomography of the abdomen/pelvis without [...] adeniform shape. There is atrophy of both creek kidneys. Adjacent fat stranding is likely related [...] adeniform shape. There is atrophy of both creek kidneys. Adjacent fat stranding is likely related [...]
--- OUTSIDE RECORDS SUMMARY | 2025-03-14 07:22 | XMS_ITS | Clinical Summary ---
Author Organization [facility] Address [address] [place] [phone] Care Team Providers Care Form Grader Name Role Phone Efren Hoyos MD Unavailable Dank Hicks MD Unavailable [phone] Mariza Carrion MD Primary Care Provider Allergies [...] 12/09/2019 Assessment & Plan (09/03/2023 9:28 AM HAND SPRING REPAIRER): Chronic problem. [facility] [place]: //Saturdays. LUE fistula. Assessment & Plan (03/05/2023 9:59 AM CDT): Chronic problem. [facility] [place]: //Saturdays. LUE fistula. ESRD on dialysis 05/22/2019 Hyperlipidemia associated with type 2 diabetes fouzia victoria 05/22/2019 Assessment & Plan (11/24/2024 10:10 AM HAND SPRING REPAIRER): Chronic problem. Controlled on current Atorvastatin 20mg. Last lipid panel: 03/03/24 LDL=33, TG=75. Assessment & Plan (03/03/2024 8:45 AM CDT): Chronic problem. Controlled on current Atorvastatin 20mg. Last lipid panel: 03/05/23 LDL=57, BF=882. Will update labs today. Does not mychart. Verified phone #/address to contact re: results. Assessment & Plan (09/03/2023 9:28 AM HAND SPRING REPAIRER): Chronic problem. Controlled on current Atorvastatin 20mg. Last lipid panel: 03/05/23 LDL=57, GU=768. Assessment & Plan (03/05/2023 9:53 AM CDT): Chronic problem. Controlled on current Atorvastatin 20mg. Last lipid panel: 12/05/21 LDL=36, RE=021. Will update labs today. Verified phone #/address to contact re: results. Assessment & Plan (11/02/2022 2:47 PM HAND SPRING REPAIRER): Chronic, well controlled Low fat Low cholesterol [...] Lipitor Assessment & Plan (09/07/2020 2:26 PM HAND SPRING REPAIRER): Goal of treatment , LDL cholesterol less [...] panel Assessment & Plan (12/09/2019 2:03 PM HAND SPRING REPAIRER): Very high TG Add Vascepa Assessment & [...] statin therapy Coronary artery disease invo lving circle coronary artery of circle heart without angina pectoris 10/04/2017 Hx of CABG 10/04/2017 Class 2 severe obesity due t o excess calories with serious comorbidity and body mass index (BMI) of 38.0 to 38.9 in adult 05/22/2017 Assessment & Plan (10/24/2018 12:58 PM HAND SPRING REPAIRER): Making progress with diet efforts. Continue Assessment & Plan (02/08/2018 11:01 AM CDT): Importance of following diet and exercising discussed. Hypertension associated with diabetes 05/22/2017 Assessment & Plan (11/24/2024 10:11 AM HAND SPRING REPAIRER): Chronic problem. Controlled on current losartan 100mg daily, amlodipine 10mg daily Assessment & Plan (03/03/2024 8:45 AM CDT): Chronic problem. BP elevated upon arrival. Controlled on current Carvedilol 25mg bid, losartan 100mg daily. No changes at this time. Will update labs today. Does not mychart. Verified phone #/address to contact re: results. Assessment & Plan (09/03/2023 9:28 AM HAND SPRING REPAIRER): Chronic problem. BP elevated upon arrival. Controlled [...] renal Assessment & Plan (10/24/2018 12:57 PM HAND SPRING REPAIRER): Controlled. Continue current medication plan and follow up with cardiology Assessment & Plan (06/18/2018 2:30 PM CDT): BP controlled on current medication plan. Continue follow up with nephrology Assessment & Plan (02/08/2018 11:00 AM CDT): Continue same medication Assessment & Plan (12/11/2017 10:24 AM HAND SPRING REPAIRER): Goal blood pressure is less than 140/85 [...] mellitus Assessment & Plan (11/24/2024 10:16 AM HAND SPRING REPAIRER): Chronic problem, controlled on current regimen. 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 Assessment & Plan (09/03/2023 9:27 AM HAND SPRING REPAIRER): Chronic problem, controlled on current regimen. 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 Assessment & Plan (03/05/2023 10:13 AM CDT): Chronic problem, controlled on current regimen. 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 Will update labs today. Verified phone #/address to contact re: results. Assessment & Plan (11/02/2022 2:43 PM HAND SPRING REPAIRER): Well controlled, with risk of hypoglycemia Insuli [...] Ross Assessment & Plan (09/07/2020 2:26 PM HAND SPRING REPAIRER): Hba1c was Lab Results Component Value Date [...] Trulicity. Assessment & Plan (12/09/2019 2:03 PM HAND SPRING REPAIRER): Your Hba1c today was: Lab Results Component Value Date HGBA1C 9.3 12/09/2019 meaning a 3 month average sugar of : 224 Your goal hba1c is under 7.0 to prevent mcfp diabetes complications ( eye , kidney and [...] hypoglycemia. Assessment & Plan (10/24/2018 1:00 PM HAND SPRING REPAIRER): Stable BG pattern 100-140 reported since last adjustment to plan. No change today. BG goals reviewed. Advised to lower Lantus by 2 units if FBG are < 100 x 2 days/wk. For planned activity, reduce Humalog dose by 1/2 at preceding meal. Assessment & Plan (09/19/2018 11:11 AM HAND SPRING REPAIRER): Your Hba1c today was: Lab Results Component Value Date HGBA1C 5.1 09/19/2018 meaning a 3 month average sugar of : 81 Your goal hba1c is under 7.0 to prevent mcfp diabetes complications ( eye , kidney and [...] time. Assessment & Plan (12/11/2017 10:47 AM HAND SPRING REPAIRER): Hba1c was .5.4 Today, 1800 calorie, consistent [...] 05/22/2019 Assessment & Plan (09/19/2018 11:20 AM HAND SPRING REPAIRER): Prevention and treatment of hypoglycemia were discussed [...] therapy Assessment & Plan (10/24/2018 12:57 PM HAND SPRING REPAIRER): Check lipid panel Assessment & Plan (06/18/2018 2:31 PM CDT): Continue statin therapy Assessment & Plan (02/08/2018 11:00 AM CDT): Continue atorvastatin Assessment & Plan (12/11/2017 10:45 AM HAND SPRING REPAIRER): Goal of treatment , LDL cholesterol less [...] Description 01/21/2025 9:30 AM CDT Ancillary Procedure [facility] Cardiology [address] [place] [phone] Cardiac pacemaker in situ; Asystole (HCC); Syncope and collapse; Symptomatic bradycardia 01/19/2025 Telephone [facility] Cardiology [address] [place] [address] [place] [phone] Dank Hicks MD 01/05/2025 Telephone [facility] Diabetes and Endocrinology [address] [place] [phone] Bertha Pinto NP Release of Information 12/30/2024 Telephone [facility] Cardiology [address] [place] [address] [place] [phone] Dank Hicks MD 12/22/2024 Orders Only [facility] Cardiology [address] [place] [address] [place] [phone] Curt Gardy MD from Last 3 Months Surgical History [...] drink = 0.6 oz pur e alcohol) [facility] Utilities Answer Date Recorded In the past 12 months has e [employer], gas, oil, or water scenios threatened to shut off services in your [...] often do you attend chur ch or confucianist services? Never 10/23/2024 Do you belong to any clubs o r organizations such as nondenominational groups, unions, fraternal or athletic groups, or [...] any time in the past 12 m [facility], were you homeless or living [...] on file Legal Sex Male 7:27 PM HAND SPRING REPAIRER Gender Identity Not on file Sexual Orientation Not on file Obstetrics History Last Filed Vital Signs Vital Sign Reading Time Taken Comments Blood Pressure 102/58 11/24/2024 9:58 AM HAND SPRING REPAIRER Pulse 75 11/24/2024 9:58 AM HAND SPRING REPAIRER Temperature 36.3 C (97.3 F) 10/25/2024 2:15 PM HAND SPRING REPAIRER Respiratory Rate 20 11/24/2024 9:58 AM HAND SPRING REPAIRER Oxygen Saturation 100% 10/25/2024 1:15 PM HAND SPRING REPAIRER Inhaled Oxygen Concentration - - Weight 91.3 kg (201 lb 4.5 oz) 10/22/2024 8:29 P M HAND SPRING REPAIRER Height 170.2 cm (5' 7.01) 11/24/2024 9:58 AM CS T Body Mass Index 31.52 10/22/2024 8:29 PM HAND SPRING REPAIRER Plan of Treatment Health Maintenance Due Date [...] 10/23/2024, 022 Medical Devices Implanted Type Area Prosthetics Technician Device Identifier Shelf Expiration Date Model / Serial / Lot [employer]onic [employer] Micra 2 Av Synchronous Leadless Ventricular Pacemaker [id number] - [id number] - [id number] Implanted:Qty: 1 on 10/24/2024 by Darien Jamil Jr., MD at [facility] [employer] 02/16/2026 [id number] / [id number] / Procedures Procedure Name Priority Date/Time Associated Diagnosis Comments DEVICE CHECK - IN OFFICE Routine 01/21/2025 9:26 AM CDT Cardiac pacemaker in situ Asystole (HCC) Syncope and collapse Symptomatic bradycardia POCT HEMOGLOBIN A1C Routine 11/24/2024 10:01 AM HAND SPRING REPAIRER Type 2 diabetes mellitus with hyperglycemia, with long-term current use of insulin (CMS/HCC) EGFR Routine 10/25/2024 5:48 AM HAND SPRING REPAIRER HEPATITIS PANEL, ACUTE Routine 10/23/2024 2:45 PM HAND SPRING REPAIRER HM DIABETES EYE EXAM Routine 08/13/2024 9:40 [...] Read Routine (OP Routine) 12/05/2021 11:53 AM HAND SPRING REPAIRER End stage renal disease (HCC) from Last [...] * POCT hemoglobin A1c (11/24/2024 10:01 AM HAND SPRING REPAIRER) [facility] Hemoglobin A1C, POC 4.9 4.0 - 5.6 % Blood 11/24/2024 10:0 1 AM HAND SPRING REPAIRER us Bertha Pinto NP POINT OF CARE TEST ORDERA BLES Final Result * (ABNORMAL) eGFR (10/25/2024 5:48 AM HAND SPRING REPAIRER) Pathologist [facility] eGFR 9(L) >=60 mL/min/1. 73 m2 Comment: [...] last reviewed 2021. Blood 10/25/2024 5:48 AM HAND SPRING REPAIRER 10/25/2024 6:03 AM HAND SPRING REPAIRER us Raisa Scherer NP LAB BLOOD ORDERABLES Jeaneth mari Result [facility] [address] Department [place] [address] * Hepatitis panel, acute Blood (10/23/2024 2:45 PM HAND SPRING REPAIRER) Hep A IgM Nonreactive Nonreactive Comment: Interpretive [...] [facility] Blood 10/23/2024 2:45 PM HAND SPRING REPAIRER 10/23/2024 2:46 PM HAND SPRING REPAIRER Sherrill Christianson MD LAB MICROBIOLOGY - GENERAL ORDERABLES Final Result Performing Organization Address City/[facility] Co de Phone Number NIDIA [address] Department [place] [address] * (ABNORMAL) DIABETES EYE EXAM (08/13/2024 9:40 AM CDT) Historical Provider HEALTH MAINTENANCE Edited Result - Final * (ABNORMAL) Albumin Creatinine Ratio, Urine (03/10/2024 8:46 AM CDT) Albumin Ur 3,169.5 mg/L Comment: Interpretive Data No reference range established. Current interpretive data was last revised 2019. Creatinine Ur 47.7 mg/dL [facility] Comment: Interpretive Data No reference range established. Current interpretive data was last revised 2019. Albumin Creatinine Ratio, Ur 6,645(H) 1 - 29 mg/g [facility] Urine 03/10/2024 8:46 AM CDT 03/11/2024 9:11 AM CDT Bertha Pinto NP LAB URINE ORDERABLES Jeaneth l Result Performing Organization Address [facility] Co de Phone Number NIDIA [place] [address] Department [place] [address] * (ABNORMAL) Lipid panel (03/03/2024 9:29 AM [...] BLOOD ORDERABLES Jeaneth l Result [facility]IA [place] [address] Department [place] [address] * CT Abdomen Pelvis WO Contrast (12/05/2021 11:53 AM HAND SPRING REPAIRER) Anatomical Region Laterality Modality Body N/A Computed Tomogra phy 12/05/2021 12:0 4 PM HAND SPRING REPAIRER Impressions 12/05/2021 12:04 PM HAND SPRING REPAIRER Bone windows show no suspicious lytic or blastic lesions. IMPRESSION: 1. 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 2. 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 Electronically signed by: Ryan Cameron M.D. Narrative 12/05/2021 12:04 PM HAND SPRING REPAIRER EXAMINATION: Computed tomography of the abdomen/pelvis without [...] adeniform shape. There is atrophy of both circle kidneys. Adjacent fat stranding is likely related [...] adeniform shape. There is atrophy of both circle kidneys. Adjacent fat stranding is likely related [...] MEDICARE FOR LIFE FOR LIFE MEDICARE MEDICARE [employer] Care Teams Form Grader Relationship Specialty Start Date End Date Mariza Carrion MD [address] [facility] [address] [place] [address] PCP - General Family Practice 03/05/23 Efren Hoyos MD Referring Physician Ophthalmology 06/16/19 Dank Hicks MD [address] [address] Consulting Physician Cardiology 10/11/21
--- OUTSIDE RECORDS SUMMARY | 2025-03-14 07:22 | XMS_ITS | CONTINUITY OF CARE DOCUMENT ---
Author Name milly atkins Address Unknown Organization [facility] Address [address] [address] [place] [address] Phone [phone] Care Team Providers Care Test Evaluator Name Role Phone Kostas Pelaez MD Unavailable [phone] Kostas Pelaez MD Unavailable [phone] PROBLEMS Condition Status Date Provider Notes S/P Single chamb PCM Micra - Medtronic ( MRI safe) active Tonie Garay INSURANCE PROVIDERS Payer name Policy type / Coverage type [place] [employer] [place] [id number] [place] B Medicare [id number]
--- OUTSIDE RECORDS SUMMARY | 2025-03-14 07:22 | XMS_ITS | Referral Summary ---
Author Organization [facility] Address [address] [place] [phone] Care Team Providers Care Wedding Florist Name Role Phone Efren Hoyos MD Unavailable Dank Hicks MD Unavailable [phone] Mariza Carrion MD Primary Care Provider Encounters Date Type Department Care Team Description 01/21/2025 9:30 AM CDT Ancillary Procedure [facility] Cardiology [address] [place] [address] [address] [place] [phone] Cardiac pacemaker in situ; Asystole (HCC); Syncope and collapse; Symptomatic bradycardia 01/19/2025 Telephone [facility] Cardiology [address] [place] [address] [place] [phone] Dank Hicks MD 01/05/2025 Telephone [facility] Diabetes and Endocrinology [address] [place] [phone] Bertha Pinto NP Release of Information 12/30/2024 Telephone [facility]iology [address] [place] [address] [place] [phone] Dank Hicks MD 12/22/2024 Orders Only [facility] [address] [place] [address] [address] [place] [phone] Curt Grady MD from Last 3 [...] with long-term current use of insulin ([facility]) Use to test glucose 5 times daily 450 each 2 04/03/20 18 Active lancets (freestyle) 28 gauge miscIndications:T ype 2 diabetes mellitus with hyperglycemia, with long-term current use of insulin ([facility]) Use to test glucose 5 [...] with long-term current use of insulin ([facility]) Change sensor every 14 days [...] with long-term current use of insulin ([facility]) Use pads 5 times daily [...] with long-term current use of insulin ([facility]) Inject 0.5ML(1.5MG total) under the [...] 12/09/2019 Assessment & Plan (09/03/2023 9:28 AM DENTAL HYGIENE TEACHER): Chronic problem. [facility] in [place]: //Saturdays. LUE fistula. Assessment & Plan (03/05/2023 9:59 AM CDT): Chronic problem. [facility] in [place]: /Saturdays. LUE fistula. ESRD on dialysis 05/22/2019 Hyperlipidemia associated with type 2 diabetes fouzia victoria 05/22/2019 Assessment & Plan (11/24/2024 10:10 AM DENTAL HYGIENE TEACHER): Chronic problem. Controlled on current Atorvastatin 20mg. Last lipid panel: 03/03/24 LDL=33, TG=75. Assessment & Plan (03/03/2024 8:45 AM CDT): Chronic problem. Controlled on current Atorvastatin 20mg. Last lipid panel: 03/05/23 LDL=57, IF=425. Will update labs today. Does not mychart. Verified phone #/address to contact re: results. Assessment & Plan (09/03/2023 9:28 AM DENTAL HYGIENE TEACHER): Chronic problem. Controlled on current Atorvastatin 20mg. Last lipid panel: 03/05/23 LDL=57, CC=997. Assessment & Plan (03/05/2023 9:53 AM CDT): Chronic problem. Controlled on current Atorvastatin 20mg. Last lipid panel: 12/05/21 LDL=36, KQ=517. Will update labs today. Verified phone #/address to contact re: results. Assessment & Plan (11/02/2022 2:47 PM DENTAL HYGIENE TEACHER): Chronic, well controlled Low fat Low cholesterol [...] Lipitor Assessment & Plan (09/07/2020 2:26 PM DENTAL HYGIENE TEACHER): Goal of treatment , LDL cholesterol less [...] panel Assessment & Plan (12/09/2019 2:03 PM DENTAL HYGIENE TEACHER): Very high TG Add Vascepa Assessment & [...] statin therapy Coronary artery disease invo lving eastern [place] coronary artery of eastern [place]rokee heart without angina pectoris 10/04/2017 Hx of CABG 10/04/2017 Class 2 severe obesity due t o excess calories with serious comorbidity and body mass index (BMI) of 38.0 to 38.9 in adult 05/22/2017 Assessment & Plan (10/24/2018 12:58 PM DENTAL HYGIENE TEACHER): Making progress with diet efforts. Continue Assessment & Plan (02/08/2018 11:01 AM CDT): Importance of following diet and exercising discussed. Hypertension associated with diabetes 05/22/2017 Assessment & Plan (11/24/2024 10:11 AM DENTAL HYGIENE TEACHER): Chronic problem. Controlled on current losartan 100mg daily, amlodipine 10mg daily Assessment & Plan (03/03/2024 8:45 AM CDT): Chronic problem. BP elevated upon arrival. Controlled on current Carvedilol 25mg bid, losartan 100mg daily. No changes at this time. Will update labs today. Does not mychart. Verified phone #/address to contact re: results. Assessment & Plan (09/03/2023 9:28 AM DENTAL HYGIENE TEACHER): Chronic problem. BP elevated upon arrival. Controlled [...] renal Assessment & Plan (10/24/2018 12:57 PM DENTAL HYGIENE TEACHER): Controlled. Continue current medication plan and follow up with cardiology Assessment & Plan (06/18/2018 2:30 PM CDT): BP controlled on current medication plan. Continue follow up with nephrology Assessment & Plan (02/08/2018 11:00 AM CDT): Continue same medication Assessment & Plan (12/11/2017 10:24 AM DENTAL HYGIENE TEACHER): Goal blood pressure is less than 140/85 [...] mellitus Assessment & Plan (11/24/2024 10:16 AM DENTAL HYGIENE TEACHER): Chronic problem, controlled on current regimen. A1c [...] daily for skin breakdown and infection (sees web content producer regularly). Assessment & Plan (03/03/2024 9:19 AM [...] daily for skin breakdown and infection (sees web content producer regularly). Assessment & Plan (09/03/2023 9:27 AM DENTAL HYGIENE TEACHER): Chronic problem, controlled on current regimen. A1c [...] daily for skin breakdown and infection (sees web content producer regularly). Assessment & Plan (03/05/2023 10:13 AM CDT): Chronic problem, controlled on current regimen. Current medications: Trulicity 1.5mg weekly Lantus 6 units every morning Humalog 4 units before meals For sugars over 160: take 6 units For sugars over 200: take 8 units Seen by [facility] Manvel every 4-5 mos; letter sent to get [...] daily for skin breakdown and infection (sees web content producer regularly). Will update labs today. Verified phone #/address to contact re: results. Assessment & Plan (11/02/2022 2:43 PM DENTAL HYGIENE TEACHER): Well controlled, with risk of hypoglycemia Insuli [...] Ross Assessment & Plan (09/07/2020 2:26 PM DENTAL HYGIENE TEACHER): Hba1c was Lab Results Component Value Date [...] Trulicity. Assessment & Plan (12/09/2019 2:03 PM DENTAL HYGIENE TEACHER): Your Hba1c today was: Lab Results Component [...] hypoglycemia. Assessment & Plan (10/24/2018 1:00 PM DENTAL HYGIENE TEACHER): Stable BG pattern 100-140 reported since last adjustment to plan. No change today. BG goals reviewed. Advised to lower Lantus by 2 units if FBG are < 100 x 2 days/wk. For planned activity, reduce Humalog dose by 1/2 at preceding meal. Assessment & Plan (09/19/2018 11:11 AM DENTAL HYGIENE TEACHER): Your Hba1c today was: Lab Results Component Value Date HGBA1C 5.1 09/19/2018 meaning a 3 month average sugar of : 81 Your goal hba1c is under 7.0 to prevent exterminator helper diabetes complications ( eye , kidney and [...] time. Assessment & Plan (12/11/2017 10:47 AM DENTAL HYGIENE TEACHER): Hba1c was .5.4 Today, 1800 calorie, consistent [...] 05/22/2019 Assessment & Plan (09/19/2018 11:20 AM DENTAL HYGIENE TEACHER): Prevention and treatment of hypoglycemia were discussed [...] therapy Assessment & Plan (10/24/2018 12:57 PM DENTAL HYGIENE TEACHER): Check lipid panel Assessment & Plan (06/18/2018 2:31 PM CDT): Continue statin therapy Assessment & Plan (02/08/2018 11:00 AM CDT): Continue atorvastatin Assessment & Plan (12/11/2017 10:45 AM DENTAL HYGIENE TEACHER): Goal of treatment , LDL cholesterol less [...] drink = 0.6 oz pur e alcohol) [facility] [employer] Answer Date Recorded In the past 12 months has [employer] oil, or water [employer] threatened to shut off services in your [...] often do you attend chur ch or rastafari services? Never 10/23/2024 Do you belong to [...] were you homeless or living in a custodial (including now)? No 10/23/2024 Personal Safety Answer Date Recorded Have you ever been in or are you currently in a harmful physical or emotional relationship or is someone making you feel afraid or unsafe? Denies 10/22/2024 Sex and Gender Information Value Date Recorded Sex Assigned at Not on file Legal Sex Male 7:27 PM DENTAL HYGIENE TEACHER Gender Identity Not on file Sexual Orientation Not on file Last Filed Vital Signs Vital Sign Reading Time Taken Comments Blood Pressure 102/58 11/24/2024 9:58 AM DENTAL HYGIENE TEACHER Pulse 75 11/24/2024 9:58 AM DENTAL HYGIENE TEACHER Temperature 36.3 C (97.3 F) 10/25/2024 2:15 PM DENTAL HYGIENE TEACHER Respiratory Rate 20 11/24/2024 9:58 AM DENTAL HYGIENE TEACHER Oxygen Saturation 100% 10/25/2024 1:15 PM DENTAL HYGIENE TEACHER Inhaled Oxygen Concentration - - Weight 91.3 kg (201 lb 4.5 oz) 10/22/2024 8:29 P M DENTAL HYGIENE TEACHER Height 170.2 cm (5' 7.01) 11/24/2024 9:58 AM CS T Body Mass Index 31.52 10/22/2024 8:29 PM DENTAL HYGIENE TEACHER Plan of Treatment Not on file Medical Devices Implanted Type Area Office Machine Service Supervisor Device Identifier Shelf Expiration Date Model / Serial / Lot Med[employer] Micra 2 Av Synchronous Leadless Ventricular Pacemaker [id number] - [id number] - [id number] Implanted:Qty: 1 on 10/24/2024 by Darien Jamil Jr., MD at [facility] [employer] 02/16/2026 [id number] / [id number] / Procedures Procedure Name Priority Date/Time Associated Diagnosis Comments DEVICE CHECK - IN OFFICE Routine 01/21/2025 9:26 AM CDT Cardiac pacemaker in situ Asystole (HCC) Syncope and collapse Symptomatic bradycardia POCT HEMOGLOBIN A1C Routine 11/24/2024 10:01 AM DENTAL HYGIENE TEACHER Type 2 diabetes mellitus with hyperglycemia, with long-term current use of insulin (CMS/HCC) EGFR Routine 10/25/2024 5:48 AM DENTAL HYGIENE TEACHER HEPATITIS PANEL, ACUTE Routine 10/23/2024 2:45 PM DENTAL HYGIENE TEACHER HM DIABETES EYE EXAM Routine 08/13/2024 9:40 [...] Read Routine (OP Routine) 12/05/2021 11:53 AM DENTAL HYGIENE TEACHER End stage renal disease (HCC) from Last [...] * POCT hemoglobin A1c (11/24/2024 10:01 AM DENTAL HYGIENE TEACHER) Pathologist [facility] Hemoglobin A1C, POC 4.9 4.0 - 5.6 % Blood 11/24/2024 10:0 1 AM DENTAL HYGIENE TEACHER us Bertha Pinto NP POINT OF CARE TEST ORDERA BLES Final Result * (ABNORMAL) eGFR (10/25/2024 5:48 AM DENTAL HYGIENE TEACHER) Pathologist [facility] eGFR 9(L) >=60 mL/min/1. 73 m2 Comment: [...] last reviewed 2021. Blood 10/25/2024 5:48 AM DENTAL HYGIENE TEACHER 10/25/2024 6:03 AM DENTAL HYGIENE TEACHER us Raisa Scherer NP LAB BLOOD ORDERABLES Jeaneth mari Result [facility] [address] Department [place] [address] * Hepatitis panel, acute Blood (10/23/2024 2:45 PM DENTAL HYGIENE TEACHER) Hep A IgM Nonreactive Nonreactive Comment: Interpretive Data: If Hep A IgM Ab is reported as Equivocal, a new sample should be drawn in two weeks for testing. Current interpretive data was last revised on 20. Hep B core IgM Nonreactive Nonreactive [facility] Comment: Interpretive Data If HepB Core IgM [...] [facility] Blood 10/23/2024 2:45 PM DENTAL HYGIENE TEACHER 10/23/2024 2:46 PM DENTAL HYGIENE TEACHER Sherrill Christianson MD LAB MICROBIOLOGY - GENERAL ORDERABLES Final Result Performing Organization Address [facility] Co de Phone Number NIDIA [place] [address] [address] Department [place] [address] * (ABNORMAL) DIABETES EYE EXAM (08/13/2024 9:40 AM CDT) Historical Provider HEALTH MAINTENANCE Edited Result - Final * (ABNORMAL) Albumin Creatinine Ratio, Urine (03/10/2024 8:46 AM CDT) Albumin Ur 3,169.5 mg/L Comment: Interpretive Data No reference range established. Current interpretive data was last revised 2019. Creatinine Ur 47.7 mg/dL [facility] Comment: Interpretive Data No reference range established. Current interpretive data was last revised 2019. Albumin Creatinine Ratio, Ur 6,645(H) 1 - 29 mg/g [facility] Urine 03/10/2024 8:46 AM CDT 03/11/2024 9:11 AM CDT Bertha Pinto NP LAB URINE ORDERABLES Jeaneth l Result Performing Organization Address City/[facility] Co de Phone Number NIDIA [place] [address] [place] [address] * (ABNORMAL) Lipid panel (03/03/2024 9:29 AM [...] LAB BLOOD ORDERABLES Jeaneth l Result NIDIA [address] [address] Department [place] [address] * CT Abdomen Pelvis WO Contrast (12/05/2021 11:53 AM DENTAL HYGIENE TEACHER) Anatomical Region Laterality Modality Body N/A Computed Tomogra phy 12/05/2021 12:0 4 PM DENTAL HYGIENE TEACHER Impressions 12/05/2021 12:04 PM DENTAL HYGIENE TEACHER Bone windows show no suspicious lytic or blastic lesions. IMPRESSION: 1. 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 2. 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 Electronically signed by: Ryan Cameron M.D. Narrative 12/05/2021 12:04 PM DENTAL HYGIENE TEACHER EXAMINATION: Computed tomography of the abdomen/pelvis without [...] adeniform shape. There is atrophy of both eastern cherokee kidneys. Adjacent fat stranding is likely related [...] adeniform shape. There is atrophy of both [place] kidneys. Adjacent fat stranding is likely related [...] MEDICARE FOR LIFE FOR LIFE MEDICARE MEDICARE [employer] Care Teams Wedding Florist Relationship Specialty Start Date End Date Mariza Carrion MD [facility] [address] PCP - General Family Practice 03/05/23 Efren Hoyos MD Referring Physician Ophthalmology 06/16/19 Dank Hicks MD [address] [place] [address] Consulting Physician Cardiology 10/11/21
--- OUTSIDE RECORDS SUMMARY | 2025-03-14 07:22 | XMS_ITS | Clinical Summary ---
Author Organization [facility] Address [address] [place] [phone] Phone Care Team Providers Care Landcare Facilitator Name Role Phone Mariza Carrion MD Primary [...] dir 0 11/12/2017 Active ergocalciferol (VITAMIN D-2) 83599 units capsule Take 1 capsule (50,000 Units total) by mouth 2 (two) times a week. 28 capsule 3 03/27/2019 Active hydrALAZINE (APRESOLINE) 100 MG tablet TAKE 1 TABLET TWICE A DAY 180 tablet 4 04/30/2019 Active aspirin 81 MG chewable tablet one p.o. qd 05/23/2012 A ctive ergocalciferol (VITAMIN D-2) 41954 units capsule one p.o. capsule once a [...] 9:51 AM CDT Height 170.2 cm (5' 7) 03/19/2019 9:51 AM CDT Body Mass Index 35.71 03/19/2019 9:51 AM CDT Plan of Treatment Health Maintenance Due Date Last Done Comments Pneumococcal PPSV23/PCV13 65 + Years / Low and Medium Risk (2 of 3 - PPSV23) 2013 2012 Influenza Vaccine (Season Ended) 2025 Insurance MEDICARE Care Teams Landcare Facilitator Relationship Specialty Start Date End Date Mariza Carrion MD [address] [place] [address] PCP - General Internal Medicine 01/06/19
--- OUTSIDE RECORDS SUMMARY | 2025-03-14 07:22 | XMS_ITS | Clinical Summary ---
Author Organization [facility] Facility Address [address] [address] Care Team Providers Care Coding Tech Name Role Phone Murali Dawkins MD Primary [...] age to complete this topic Insurance Medicare [facility] Care Teams Coding Tech Relationship Specialty Start Date End Date Murali Dawkins MD [address] [place] [address] PCP - General Family Medicine 10/28/24
--- OUTSIDE RECORDS SUMMARY | 2025-03-14 07:22 | XMS_ITS | Clinical Summary ---
Author Organization [facility] Address [address] [place] [address] Care Team Providers Care Chief Nursing Officer Name Role Phone Mariza Carrion MD Primary Care Provider Source Comments [facility],non-owned Affiliates and Associated Physician Practices is amultiple site organization consisting of ambulatory clinics and hospital sitesin [place] and [place]. This disclosure is being madepursuant to the Care Everywhere program and may not contain all information available regarding this patient. Last updated 18.[facility] Allergies No known active allergies Medications * [...] Use pads 5 times daily 8 Active oxkmx-5-lzgm ethyl esters (LOVAZA) 1 g capsule Take [...] FOR MUSCLE SPASM 4 Active HYDROcodone-ac etaminophen (Seffner) 5-325 MG tablet 4 Active Lokelma 10 [...] and heating? Not hard at all 04/06/2023 [facility] [place] [facility] Occupat ional Health - Occupational Stress [...] to sleep or slept in a senior living (including now)? No 04/06/2023 Sex and Gender Information Value Date Recorded Sex Assigned at Not on file Legal Sex Male 9:30 AM CDT Gender Identity Not on file Sexual Orientation Not on file Last Filed Vital Signs Vital Sign Reading Time Taken Comments Blood Pressure 147/70 09/22/2024 8:55 AM TRADING SPECIALIST Pulse 68 09/22/2024 8:55 AM TRADING SPECIALIST Temperature 36.2 C (97.2 F) 09/22/2024 7:24 AM TRADING SPECIALIST Respiratory Rate 15 09/22/2024 8:55 AM TRADING SPECIALIST Oxygen Saturation 92% 09/22/2024 8:55 AM TRADING SPECIALIST Inhaled Oxygen Concentration 25% 04/11/2023 7 :26 PM CDT Weight 87.9 kg (193 lb 12.6 oz) 09/22/2024 7:24 AM TRADING SPECIALIST Height 170.2 cm (5' 7) 09/22/2024 7:24 AM TRADING SPECIALIST Body Mass Index 30.35 09/22/2024 7:24 AM TRADING SPECIALIST Plan of Treatment Upcoming Encounters Date Type Department Care Team (Late st Contact Info) Description 03/23/2025 8:00 AM CDT Appointment [facility] Health Vascular Services [address] [address] [facility] [address], [address] [place] [address] [place] [address] [facility] [address] [place] [address] Health Maintenance Due Date Last [...] this topic Medical Devices Implanted Type Area Flame Planer Device Identifier Shelf Expiration Date Model / Serial / Lot Mynxgrip Vascular Closure Device Implanted:Qty: 1 on 04/11/2023 by Matt Beyer DO at [facility] Right: Groin 01/19/2025 [id number] / [id number] / [id number] Cv 6x1cm [employer] Decellularized Implanted:Qty: 1 on 04/20/2023 by Matt Beyer DO at [facility] N/A: Other (See Descriptio n) [employer] 01/28/2024 [id number] / / [id number] Description:LEFT FEMORAL ART BARI Procedures Procedure Name Priority Date/Time Associated Diagnosis Comments HEPATITIS SCREEN ACUTE STAT 04/07/2023 8:19 AM CDT from Last 3 Months or Most Recently Relevant to Health Maintenance Results * HEPATITIS SCREEN ACUTE (04/07/2023 8:19 AM CDT) Pathologist [facility] HAV Antibody IgM Non Reactive Non Reactive 04/07/2023 9:28 AM CDT [facility] HBsAg Non Reactive Non Reactive 04/07/2023 9:28 AM CDT [facility] HBc Antibody IgM Non Reactive Non Reactive 04/07/2023 9:28 AM CDT [facility] HCV Antibody Screen Non Reactive Non Reactive 04/07/2023 9:28 AM CDT [facility] Blood BLOOD SPECIMEN / Unknown Venipuncture / Unknown 04/07/2023 8:19 AM CDT 04/07/2023 8:31 AM CDT Narrative [facility] - 04/07/2023 9:28 AM CDT Non Reactive - Antibodies to Hepatitis C virus (HCV) were not detected, result does not exclude early acute HCV infection. Marito Rios MD LAB - CHEMISTRY ORDERABLES Jeaneth mari Result [facility] [address] [place] [address] from Last 3 Months or Most Recently Relevant to Health Maintenance Insurance MEDICARE MEDICARE [facility] Advance Directives Documents on File Type Date Recorded Patient Roller Pneumatic Expl anation Adv Directive/Living Will/POA 05/02/2023 3:49 PM * Full Code (Latest Code Status on File) Date Activated Date Inactivated Comments 04/06/2023 9:49 AM 05/01/2023 4:44 PM Care Teams Chief Nursing Officer Relationship Specialty Start Date End Date Mariza Carrion MD [address] [place] [address] PCP - General Family Medicine 08/26/18
[2025-03-14 07:40] LABS: Alveolar/Arterial O2 Gradient 9.9 mmHg; Base Excess ABG -1.5 mEq/l (+/-2.0); Carboxyhemoglobin 1.3 % THb (0-2.0); Fractional Inspired Oxygen 21 %; HCO3 ABG 25.4 mEq/l (22.0-26.0); Methemoglobin ABG 0.3 %THb (0-1.5); Oxygen Content ABG 14.2 %vol (16.0-22.0); Oxygen Saturation ABG 93.8 % (95.0-100.0); Oxyhemoglobin 93.2 % THb (90.0-100.0); PO2 ABG 76.4 mmHg (80.0-100.0); PO2 FiO2 Ratio Arterial Blood 3.64 %; Reduced Hemoglobin 5.2 %THb (0-5.0); Total Hemoglobin 10.8 g/dL (12.0-18.0)
[2025-03-14 07:44] LABS: Site Drawn RIGHT BRACHIAL; pH ABG 7.298 (7.350-7.450)
[2025-03-14 07:45] LABS: Device ROOM AIR
[2025-03-14 08:13] LABS: Ammonia < 9 umol/L (9-30); Ethanol < 10 mg/dL (<10)
--- NOTE | 2025-03-14 08:30 | ED_ITS ---
HPI - General Adult General Chief complaint: Weakness Stated complaint: increased weakness Time Seen by Provider: 03/14/25 06:53 History of Present Illness HPI narrative: 79-year-old male present to the emergency department for evaluation for increased somnolence. Patient was just discharged from [facility] 2 days ago for similar symptoms. Patient does get dialysis on Tuesdays and Sunday. Patient did not have dialysis today. Patient was going to dialysis when he was too weak and was brought to the emergency department for evaluation. Patient has had multiple similar presentations since December. With the most recent discharge being 2 days ago. Patient was also complaining blurred vision and lower extremity weakness and this has also been chief complaint on similar visits. Related Data Home Medications ?Medication ?Instructions ?Recorded ?Confirmed ?Last Taken ?Type aspirin 81 mg tablet,delayed 81 mg PO DAILY 10/31/21 03/14/25 03/09/25 History release carvedilol 25 mg tablet 25 mg PO BID 10/31/21 03/14/25 03/09/25 History insulin lispro 100 unit/mL 4 unit subcut .TIDAC 10/31/21 03/14/25 03/09/25 History subcutaneous pen loratadine 10 mg tablet (Claritin) 10 mg PO DAILY 10/31/21 03/14/25 03/09/25 History insulin glargine 100 unit/mL (3 6 unit subcut HS 11/07/23 03/14/25 03/09/25 22:20 History mL) subcutaneous pen (Lantus Solostar U-100 Insulin) cinacalcet 90 mg PO DAILY 12/12/23 03/14/25 03/09/25 History atorvastatin 20 mg tablet 20 mg PO HS 12/21/24 03/14/25 03/09/25 History pentoxifylline 400 mg 400 mg PO QPM 01/29/25 03/14/25 03/09/25 17:00 History tablet,extended release acetaminophen 300 mg-codeine 30 mg 1 tablet PO Q6H PRN pain, severe 02/16/25 03/14/25 03/01/25 History tablet amlodipine 10 mg tablet 10 mg PO DAILY 02/16/25 03/14/25 03/09/25 History bisacodyl 10 mg rectal suppository 10 mg RECTAL DAILY PRN constipation 02/16/25 03/14/25 Unknown History (Laxative (bisacodyl)) gabapentin 100 mg capsule 100 mg PO TID 02/16/25 03/14/25 03/09/25 History liraglutide 0.6 mg/0.1 mL (18 mg/3 1.2 mg subcut HS 02/16/25 03/14/25 03/09/25 History mL) subcutaneous pen injector loratadine 10 mg capsule (Allergy 10 mg PO DAILY PRN itching 02/16/25 03/14/25 03/09/25 History Relief (loratadine)) magnesium citrate (Citroma oral 296 ml PO .AM PRN constipation 02/16/25 03/14/25 Unknown History solution) magnesium hydroxide 400 mg/5 mL 30 ml PO HS PRN constipation 02/16/25 03/14/25 Unknown History oral suspension (Milk of Magnesia) sodium phosphates 19 gram-7 118 ml RECTAL DAILY PRN 02/16/25 03/14/25 Unknown History gram/118 mL enema (Fleet Enema) constipation vitamin B complex 1 cap PO DAILY 02/16/25 03/14/25 03/09/25 History acetaminophen 325 mg tablet 650 mg PO TID 03/10/25 03/14/25 03/09/25 History baclofen 5 mg tablet 5 mg PO TID 03/10/25 03/14/25 03/09/25 History cyclobenzaprine 10 mg tablet 10 mg PO Q8H PRN muscle spasm 03/10/25 03/14/25 Unknown History ipratropium 20 mcg-albuterol 100 1 puff inhalation Q6H PRN 03/10/25 03/14/25 Unknown History mcg/actuation mist for inhalation shortness of breath or wheezing (Combivent Respimat) loperamide 2 mg capsule 2 mg PO Q4H PRN loose stool 03/10/25 03/14/25 Unknown History losartan 100 mg tablet 100 mg PO PRN PRN blood pressure 03/10/25 03/14/25 Unknown History melatonin 3 mg tablet 3 mg PO HS 03/10/25 03/14/25 03/09/25 History tramadol 50 mg tablet 50 mg PO BID 03/10/25 03/14/25 03/09/25 History umeclidinium 62.5 mcg/actuation 2 inh inhalation DAILY 03/10/25 03/14/25 03/09/25 History blister powder for inhalation (Incruse Ellipta) Allergies Allergy/AdvReac Type Severity Reaction Status Date / Time No Known Allergies Allergy Verified 03/10/25 07:55 Review of Systems 2 Review of Systems: All systems reviewed & are unremarkable except as noted in HPI and below PMFSH Past Medical History Medical History Bilateral shoulder pain Diabetic polyneuropathy Diabetes Coronary artery disease Chronic obstructive pulmonary disease Diabetic peripheral neuropathy Anemia Atrial fibrillation Chronic neck and back pain Insomnia History of nephrolithiasis Sinus pause (~09/2024) Obstructive sleep apnea Intolerant to CPAP Insulin dependent type 2 diabetes mellitus (~2009) Benign prostatic hyperplasia Peripheral vascular disease (~03/2023) Internal hemorrhoid, bleeding End-stage renal disease on hemodialysis DVT dialysis Sunday History of colon polyps Environmental allergies Vitamin D deficiency Dyslipidemia Essential (primary) hypertension Surgical History Surgical History History of cardiac pacemaker (~10/2024) Medtronic pacemaker placed due to symptomatic sinus pauses causing syncope performed at [facility] Status post cataract extraction of both eyes with insertion of intraocular lens History of colonoscopy with polypectomy History of hemorrhoidectomy (~01/12/24) Anorectal evaluation under anesthesia and excisional hemorrhoidectomy x3 12/14/23 SAW S/P peripheral artery angioplasty (~03/2023) status post balloon angioplasty of bilateral common and external iliac arteries status post left iliofemoral endarterectomy Arteriovenous fistula of left upper extremity (~2017) History of appendectomy (~1962) History of coronary artery bypass graft (~2013) Family History Family History Mother Diabetes mellitus Acute myocardial infarction Family history of congestive heart failure Father Hypertension Social History Social History Social History: The patient is . He and his brother live together prior to his recent hospitalization and placement in to [facility]. He is retired after 26 years of serving in the [employer]. He has 4 children. He used to smoke 1.5-2 packs of cigarettes per day but quit smoking in approximately 2009. He will on a rare occasion drink an alcoholic beverage maybe 2 to 3 times a year. He denies illicit substance use. Surrogate medical decision maker: Wilian Morrissey, sibling. Code status: Full code. Caffeine- daily Smoking packs per day: 1.5 Smoking cigarettes per day: 30.0 Years smoked: 44 Smoking pack-years: 66.00 Smoking status: Never smoker Second hand tobacco smoke exposure: No Alcohol intake: never Alcohol use details: Maybe 2-3 per year Substance use: never Substance use type: does not use Do You Feel Safe in your Home?: Yes Lack of Transportation: No Lack of Food: Never True Current Housing: I Have Housing Concerned About Future Housing: No Difficulty Paying Gas/Electric Bills: No Difficulty Paying for Meds: No Currently Unemployed: No Education: High School Diploma/GED Difficulty w/ Childcare or Family Care: No Living arrangements: with family Occupation/Education: retired Additional occupation/education comments: Retired from the [employer]. Spiritual care concerns: No Agree to blood products: Yes Exam 2 Narrative: APPEARANCE: Somnolent appearing but does awake to verbal stimuli HEAD: normocephalic, atraumatic. EYES: PERRLA/EOMI, conjunctivae clear. NOSE: Normal no drainage EARS:TMS clear with good light reflex. THROAT: Pharynx clear, no exudate. NECK: Supple. No adenopathy, no masses. RESPIRATORY: Airway patent, respirations nonlabored. Clear to auscultation bilaterally, no rales, rhonchi, wheezing. CARDIOVASCULAR: Regular rate and rhythm without murmurs rubs or gallops. ABDOMINAL: Soft, nontender, nondistended, normal bowel sounds MUSCULOSKELETAL: Moves all extremities. Strength/ROM intact, No edema, No calf tenderness. NEURO: Alert. Cranial nerves II through XII intact. Good gait. Good coordination SKIN: Warm, dry. Normal Color Course Vital Signs Vital signs: Vital Signs Temperature 97.3 F L 03/14/25 06:24 Pulse Rate 64 03/14/25 06:24 Respiratory Rate 12 03/14/25 06:24 Blood Pressure 146/67 H 03/14/25 06:24 Pulse Oximetry 93 03/14/25 06:24 Oxygen Delivery Room Air 03/14/25 06:24 Temperature 97.2 F L 03/14/25 14:24 Pulse Rate 72 03/14/25 14:24 Respiratory Rate 18 03/14/25 14:24 Blood Pressure 109/64 03/14/25 14:24 Pulse Oximetry 96 03/14/25 14:24 Oxygen Delivery BiPAP 03/14/25 11:19 Fraction of Inspired Oxygen 21 03/14/25 11:19 Medical Decision Making MDM Narrative Medical decision making narrative: 79-year-old male presents emergency department for evaluation for increased somnolence but does wake up to verbal stimuli. Patient had been complaining of blurred vision and extremity weakness and this is a common complaint for him. CT shows no acute intracranial abnormality. Patient is currently afebrile with no leukocytosis and hemoglobin 10.2. Patient had no significant abnormalities on his CMP did have a mildly elevated pCO2 of 53, this is not far from his previous baseline. Patient had no significant electrolyte abnormalities with a normal potassium. UA was still pending. Urine drug screen was ordered and was pending. Patient was negative for influenza RSV and for COVID. Case was discussed with the hospitalist patient was accepted for admission. Nephrology was consulted. Patient is family was updated on the results of the workup and plan for admission. All questions concerns were addressed. Differential Diagnosis Differential Diagnosis: Adverse drug reaction, infection, TIA, CVA, subdural hematoma, subarachnoid hemorrhage, hypercapnia, urinary tract infection, sepsis Vital Signs Vital Signs: Vital Signs Temperature 97.3 F L 03/14/25 06:24 Pulse Rate 64 03/14/25 06:24 Respiratory Rate 12 03/14/25 06:24 Blood Pressure 146/67 H 03/14/25 06:24 Pulse Oximetry 93 03/14/25 06:24 Oxygen Delivery Room Air 03/14/25 06:24 Temperature 97.2 F L 03/14/25 14:24 Pulse Rate 72 03/14/25 14:24 Respiratory Rate 18 03/14/25 14:24 Blood Pressure 109/64 03/14/25 14:24 Pulse Oximetry 96 03/14/25 14:24 Oxygen Delivery BiPAP 03/14/25 11:19 Fraction of Inspired Oxygen 21 03/14/25 11:19 Lab Data Lab results reviewed: Yes I reviewed the patient's lab results. 03/14/25 06:40 03/14/25 06:40 Labs: Lab Results 03/14/25 03/14/25 03/14/25 Range/Units 06:40 07:33 07:54 WBC 5.8 (4.5-10.0) K/mm3 RBC 3.81 L (4.6-6.20) M/mm3 Hgb 10.2 L (14.0-18.0) g/dL Hct 36.2 L (42.0-52.0) % MCV 95.0 (80-100) fl MCH 26.8 (26-34) pg MCHC 28.2 L (32-36) g/dl RDW 18.6 H (11.5-14.5) % Plt Count 193 (150-375) k/mm3 MPV 10.8 H (7.4-10.4) fl Immature Gran % (Auto) 0.5 (0-0.5) % Neut % (Auto) 78.1 H (45.5-73.1) % Lymph % (Auto) 8.2 L (18.3-44.2) % [place] % (Auto) 9.2 H (2.6-8.5) % Eos % (Auto) 3.1 (0-4.4) % Baso % (Auto) 0.9 (0.2-1.2) % Lymph # (Auto) 0.48 L (0.9-3.2) K/mm3 [place] # (Auto) 0.5 (0.1-0.6) K/mm3 Eos # (Auto) 0.2 (0-0.3) K/mm3 Baso # (Auto) 0.1 (0.0-0.1) K/mm3 Abs Immat Gran (auto) 0.03 (0.00-0.031) K/mm3 Absolute Neuts (auto) 4.6 (1.3-6.7) K/mm3 Absolute Nucleated RBC 0.000 (0.0-0.012) K/mm3 Band Neutrophils % Not Reportable Nucleated RBC % 0.0 (0.0-0.2) % Platelet Estimate Adequate (Adequate) Hypochromasia 1+ Anisocytosis 1+ Ovalocytes 1+ Schistocytes None seen Methemoglobin 0.3 (0-1.5) %THb Sodium 139 (137-145) mmol/L Potassium 4.7 (3.4-5.0) mmol/L Chloride 103 (98-107) mmol/L Carbon Dioxide 29 (22-30) mmol/L Anion Gap 7 (4-12) mmol/L BUN 36 H D (9-20) mg/dL Creatinine 5.77 H (0.7-1.3) mg/dL Estim Creat Clear Calc 11 ml/min Estimated GFR 10 L (59 - ) Glucose 124 H (65-110) mg/dL Lactic Acid 1.1 (0.7-2.0) mmol/L Calcium 10.8 H (8.4-10.2) mg/dL Total Bilirubin 0.3 (0.2-1.3) mg/dL AST 13 L (17-59) U/L ALT 11 (6-50) U/L Alkaline Phosphatase 54 (38-126) U/L Ammonia < 9 L (9-30) umol/L Total Protein 6.0 L (6.3-8.2) g/dL Albumin 3.7 (3.5-5.1) g/dL Urine Color (Yellow) Urine Appearance (Clear) Urine pH (5.0-9.0) Ur Specific [place] (1.001-1.035) Urine Protein (Negative) mg/dL Urine Glucose (UA) (Negative) mg/dL Urine Ketones (Negative) mg/dL Ur Blood (Man) (Negative) Urine Nitrate (Negative) Urine Bilirubin (Negative) Urine Urobilinogen (<2.0) mg/dL Leukocyte Esterase Rfl (Negative) MEG/UL Urine RBC (0-2) /hpf Urine WBC (0-3) /hpf Ur Squamous Epith Cells (Few) /hpf Urine Bacteria /hpf Urine Casts Urine Yeast (Budding) (None) /hpf Urine Opiates Screen (Negative) Urine Methadone Screen (Negative) Ur Barbiturates Screen (Negative) Ur Phencyclidine Scrn (Negative) Ur Amphetamine Screen (Negative) U Benzodiazepines Scrn (Negative) Urine Cocaine Screen (Negative) U Cannabinoids Screen (Negative) Ethyl Alcohol < 10 (<10) mg/dL Influenza A (RT-PCR) (Negative) Influenza B (RT-PCR) (Negative) RSV (RT-PCR) (Negative) SARS-CoV-2 RNA (RT-PCR) (Negative) 03/14/25 03/14/25 Range/Units 08:04 09:00 WBC (4.5-10.0) K/mm3 RBC (4.6-6.20) M/mm3 Hgb (14.0-18.0) g/dL Hct (42.0-52.0) % MCV (80-100) fl MCH (26-34) pg MCHC (32-36) g/dl RDW (11.5-14.5) % Plt Count (150-375) k/mm3 MPV (7.4-10.4) fl Immature Gran % (Auto) (0-0.5) % Neut % (Auto) (45.5-73.1) % Lymph % (Auto) (18.3-44.2) % [place] % (Auto) (2.6-8.5) % Eos % (Auto) (0-4.4) % Baso % (Auto) (0.2-1.2) % Lymph # (Auto) (0.9-3.2) K/mm3 [place] # (Auto) (0.1-0.6) K/mm3 Eos # (Auto) (0-0.3) K/mm3 Baso # (Auto) (0.0-0.1) K/mm3 Abs Immat Gran (auto) (0.00-0.031) K/mm3 Absolute Neuts (auto) (1.3-6.7) K/mm3 Absolute Nucleated RBC (0.0-0.012) K/mm3 Band Neutrophils % Nucleated RBC % (0.0-0.2) % Platelet Estimate (Adequate) Hypochromasia Anisocytosis Ovalocytes Schistocytes Methemoglobin (0-1.5) %THb Sodium (137-145) mmol/L Potassium (3.4-5.0) mmol/L Chloride (98-107) mmol/L Carbon Dioxide (22-30) mmol/L Anion Gap (4-12) mmol/L BUN (9-20) mg/dL Creatinine (0.7-1.3) mg/dL Estim Creat Clear Calc ml/min Estimated GFR (59 - ) Glucose (65-110) mg/dL Lactic Acid (0.7-2.0) mmol/L Calcium (8.4-10.2) mg/dL Total Bilirubin (0.2-1.3) mg/dL AST (17-59) U/L ALT (6-50) U/L Alkaline Phosphatase (38-126) U/L Ammonia (9-30) umol/L Total Protein (6.3-8.2) g/dL Albumin (3.5-5.1) g/dL Urine Color Yellow (Yellow) Urine Appearance Clear (Clear) Urine pH 7.0 (5.0-9.0) Ur Specific [place] 1.016 (1.001-1.035) Urine Protein 4+ H (Negative) mg/dL Urine Glucose (UA) 1+ H (Negative) mg/dL Urine Ketones Negative (Negative) mg/dL Ur Blood (Man) Trace (Negative) Urine Nitrate Negative (Negative) Urine Bilirubin Negative (Negative) Urine Urobilinogen 0.2 (<2.0) mg/dL Leukocyte Esterase Rfl Trace H (Negative) MEG/UL Urine RBC 3-5 H (0-2) /hpf Urine WBC 21-50 H (0-3) /hpf Ur Squamous Epith Cells None seen (Few) /hpf Urine Bacteria None seen /hpf Urine Casts 0-2 Urine Yeast (Budding) Present H (None) /hpf Urine Opiates Screen Positive A (Negative) Urine Methadone Screen Negative (Negative) Ur Barbiturates Screen Negative (Negative) Ur Phencyclidine Scrn Negative (Negative) Ur Amphetamine Screen Negative (Negative) U Benzodiazepines Scrn Negative (Negative) Urine Cocaine Screen Negative (Negative) U Cannabinoids Screen Negative (Negative) Ethyl Alcohol (<10) mg/dL Influenza A (RT-PCR) Negative (Negative) Influenza B (RT-PCR) Negative (Negative) RSV (RT-PCR) Negative (Negative) SARS-CoV-2 RNA (RT-PCR) Negative (Negative) ABG Data ABG results: 03/14/25 07:33 Puncture Site Right brachial ABG pH 7.298 L* ABG pCO2 53.0 H ABG pO2 76.4 L ABG PO2/FiO2 Ratio 3.64 ABG HCO3 25.4 ABG O2 Saturation 93.8 L ABG O2 Content 14.2 L ABG Base Excess -1.5 A-a Gradient 9.9 Oxyhemoglobin 93.2 Carboxyhemoglobin 1.3 Reduced Hemoglobin 5.2 H Total Hemoglobin 10.8 L O2 Delivery Device Room air O2 Liters/Min 0.0 FiO2 21 Imaging Data Radiologist's impression: Impressions Head CT 03/14/25 07:24 IMPRESSION: 1. 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 No acute intracranial process. 2. Age-related changes including moderate diffuse volume loss and moderate scattered white matter hypoattenuation consistent with chronic small vessel ischemic disease. 3. Sinus disease. Chest X-Ray 03/14/25 07:59 IMPRESSION: 1. Pulmonary vascular congestion with no other acute cardiopulmonary disease. Discharge Plan Discharge Clinical Impression: Daytime somnolence, AMS (altered mental status), IDDM (insulin dependent diabetes mellitus), End-stage renal disease on hemodialysis Patient Disposition: Still a Patient Condition: Serious
--- NOTE | 2025-03-14 08:49 | PC.NURSE ---
Pt. receives dialysis T//Sun. Last had dialysis on . Family at bedside states pt. makes urine approximately every 2 days. Pt. bladder scanned - 167mL in bladder.
[2025-03-14 08:56] LABS: Influenza A QL RT-PCR Negative (Negative); Influenza B QL RT-PCR Negative (Negative); RSV RNA, RT-PCR Negative (Negative); SARS-CoV-2 RNA PCR Negative (Negative)
[2025-03-14 09:22] LABS: Add Urine Microscopic? YES; Appearance Urine Clear (Clear); Bacteria Urine None Seen /hpf; Bilirubin Urine Negative (Negative); Blood Urine Trace (Negative); Budding Yeast Urine Present /hpf; Color Urine Yellow (Yellow); Glucose Urine UA 1+ mg/dL (Negative); Ketones Urine Negative (Negative); Leukocyte Esterase Ur Trace LEU/UL (Negative); Nitrate Urine Negative (Negative); Non Pathogenic Casts 0-2; Protein Urine 4+ mg/dL (Negative); Specific Grav Ur 1.016 (1.001-1.035); Squamous Epithelial Cell Urine None Seen /hpf (Few); Urobilinogen Urine 0.2 mg/dL (<2.0); WBC Urine 21-50 /hpf (0-3)
[2025-03-14 09:31] LABS: Amphetamine Screen Urine Negative (Negative); Barbiturate Screen Urine Negative (Negative); Benzodiazepines Screen Urine Negative (Negative); Cannabinoid Screen Urine Negative (Negative); Cocaine Screen Urine Negative (Negative); Methadone Screen Urine Negative (Negative); Opiate Screen Urine Positive (Negative); Phencyclidine Screen Urine Negative (Negative)
[2025-03-14 10:21] LABS: Glucose Point of Care 105 mg/dl (65-105)
--- NOTE | 2025-03-14 11:00 | ADMGEN ---
This patient, Sam Morrissey, was admitted to 3 [facility] Surg Room 305-02 at 1010. Family oriented to hospital policies and general routines including ID bracelet, bed and alarms, visiting hours, pain management, procedures, bathroom and other care routines, personal items, smoking policy, room service/diet, and visiting hours. Information on how to activate the Rapid Response Team has been discussed. Family are encouraged to report perceived risks to care and to ask questions if they do not understand what they are told or what they should do. Patient unresponsive on arrival from the ED. ED RN at bedside and reports pt aroused per verbal and sternal rub at times in the ED and that pt has been somnolent lately per family. Patient's daughter, Tiarra, called for consent for dialysis. Dr. Siegel came to bedside to assess pt and gave verbal orders for bipap with an ABG recheck in 2 hr. Pt transferred to dialysis from [facility]-2 at 1034.
--- NOTE | 2025-03-14 11:30 | P.CONNP_ITS ---
Assessment and Plan Assessment and plan (1) End stage renal disease: Code(s): N18.6 - End stage renal disease Status: Chronic Assessment and Plan: * HD today * continue T/T/S outpatient dialysis schedule while hospitalized * follow electrolytes, volume status, and clearance (2) Altered mental status: Code(s): R41.82 - Altered mental status, unspecified Status: Acute Assessment and Plan: * slow improvement noted * as noted on presentation to ER/hospital * etiology not entirely clear * evaluation noted so far: * ABG with acidosis and mild CO2 retention (improvement noted with BiPAP) * CT of head without acute pathology * UA with possible/questionable infection * normal WBC * medication related (pain meds, baclofen, flexiril, gabapentin...etc) * hypercalcemia -- however, calcium level has been higher in the past without any neurological issues) * other(?) * trial of BiPAP * hold sedating medications (would not restart baclofen) * unable to do brain MRI due to pacemaker * follow trend of mentation (3) Volume overload: Code(s): E87.70 - Fluid overload, unspecified Status: Acute Assessment and Plan: * as noted by admission CXR findings * however, relatively mild in comparison to previous admissions * fluid/ultrafiltration with dialysis to maintain euvolemia * in the past, has been complicated by his COPD/reactive airway disease (4) Atrial fibrillation: Code(s): I48.91 - Unspecified atrial fibrillation Status: Chronic Assessment and Plan: * rate control strategy * restarted anticoagulation (Eliquis) last hospitalization * apparently previously held due to issues with GI bleeding (5) Hypercalcemia: Code(s): E83.52 - Hypercalcemia Status: Acute Assessment and Plan: * noted on last couple of hospitalizations as well * not clear on etiology * sensipar/cinacalcet usually causes hypocalcemia * possibly due to prolonged immobilization/bed bound state? * adjusting calcium bath with dialysis to compensate (6) Anemia: Code(s): D64.9 - Anemia, unspecified Status: Chronic Assessment and Plan: * due to ESRD * Epogen with HD * follow trend of H/H (7) Essential (primary) hypertension: Code(s): I10 - Essential (primary) hypertension Status: Chronic Assessment and Plan: * reasonable control * fluid removal with HD may help * resume home medications * follow trend of hemodynamics (8) IDDM (insulin dependent diabetes mellitus): Status: Chronic Assessment and Plan: * follow accu-cheks * glycemic control per hospitalist I will continue follow the patient with you while he remains hospitalized and make further recommendations as needed. Thank you for allowing me to participate in the care of this patient. L History of Present Illness Reason for Consult Consult date: 03/14/25 Reason for consult: end stage renal disease Chief Complaint Chief complaint: Generalized weakness, blurred vision, somnolent History of Present Illness Narrative: The patient is a 79-year-old male with a past medical history as outlined below who presented to the ER from his nursing facility due to increased somnolence. The patient was just discharged from [facility] approximately 48 hours ago after being hospitalized for shortness of breath, blurry vision, and upper extremity weakness/tremors. His shortness of breath improved as more aggressive fluid removal with dialysis and has blurry vision seemed to resolve on its own. His upper extremity weakness/ tremors were thought to be secondary to his known cervical radiculopathy which requires an outpatient MRI for further evaluation as he has a pacemaker and this could not be done during his acute hospital stay. Apparently, early this morning, nursing staff at his facility noticed the patient was not as awake alert as usual although it is unclear how long he was in this state. He was due for dialysis earlier this morning but instead was transported to the emergency room for further assessment of this acute issue. Workup and evaluation emergency room did confirm his increased somnolence but he did wake up to verbal stimuli and was otherwise hemodynamically stable. One conversive, he complained of blurred vision and upper extremity weakness which was the same complaint that he had on his previous hospitalization as well. Imaging studies including a CT scan of his head showed no acute intracranial process and his chest x-ray does showed some pulmonary vascular congestion which may be some of a chronic issue for him at baseline. Routine blood work demonstrated CBC with no leukocytosis, stable hemoglobin, and normal platelet count. His chemistry showed labs consistent with his known history of end-stage renal disease without any critical electrolyte abnormalities. An ABG was done that showed a mild respiratory acidosis and mildly elevated pCO2 of 53 but otherwise no other significant abnormalities. His urinalysis was questionable for possible infection but he had no clinical symptoms on further questioning in the ER. His urine drug screen was positive for opioids. Viral testing for influenza, RSV, and COVID were negative as well. Given his altered mental status at his nursing facility and on presentation to the emergency room without a clear etiology, he was admitted to the hospital for further evaluation therapy. Since his admission, BiPAP therapy was instituted which did seem to improve his mentation a bit in that he was more verbal and conversant in comparison to what it was in the emergency room. Renal consultation was requested due to his end-stage renal disease. The patient normally dialyzes on a Sunday, , and Sunday dialysis schedule at [facility] under the care of Dr. Brett Tang. From a dialysis perspective, the patient usually does quite well with relative stability in his monthly labs although his fluid gains in between dialysis treatments can be an issue/quite large at times. His last dialysis treatment was on (03/12/25) here in the hospital prior to his last discharge. That last hemodialysis treatment prior to discharge was uneventful and he tolerated reasonably well. Currently, at the time my visit, he is tolerating dialysis without any issues or concerns (he was seen on HD at 11:15AM). Review of Systems 2 Review of Systems: As per HPI. [facility] Past Medical History Medical History Bilateral shoulder pain Diabetic polyneuropathy Diabetes Coronary artery disease Chronic obstructive pulmonary disease Diabetic peripheral neuropathy Anemia Atrial fibrillation Chronic neck and back pain Insomnia History of nephrolithiasis Sinus pause (~09/2024) Obstructive sleep apnea Intolerant to CPAP Insulin dependent type 2 diabetes mellitus (~2009) Benign prostatic hyperplasia Peripheral vascular disease (~03/2023) Internal hemorrhoid, bleeding End-stage renal disease on hemodialysis DVT dialysis Sunday History of colon polyps Environmental allergies Vitamin D deficiency Dyslipidemia Essential (primary) hypertension Surgical History Surgical History History of cardiac pacemaker (~10/2024) [employer] pacemaker placed due to symptomatic sinus pauses causing syncope performed at [facility] Status post cataract extraction of both eyes with insertion of intraocular lens History of colonoscopy with polypectomy History of hemorrhoidectomy (~01/12/24) Anorectal evaluation under anesthesia and excisional hemorrhoidectomy x3 12/14/23 SAW S/P peripheral artery angioplasty (~03/2023) status post balloon angioplasty of bilateral common and external iliac arteries status post left iliofemoral endarterectomy Arteriovenous fistula of left upper extremity (~2017) History of appendectomy (~1962) History of coronary artery bypass graft (~2013) Family History Family History Mother Diabetes mellitus Acute myocardial infarction Family history of congestive heart failure Father Hypertension Social History Social History Social History: The patient is . He and his brother live together prior to his recent hospitalization and placement in to [facility]. He is retired after 26 years of serving in the [employer]. He has 4 children. He used to smoke 1.5-2 packs of cigarettes per day but quit smoking in approximately 2009. He will on a rare occasion drink an alcoholic beverage maybe 2 to 3 times a year. He denies illicit substance use. Surrogate medical decision maker: Wilian Yuni, sibling. Code status: Full code. Caffeine- daily Smoking packs per day: 1.5 Smoking cigarettes per day: 30.0 Years smoked: 44 Smoking pack-years: 66.00 Smoking status: Never smoker Second hand tobacco smoke exposure: No Alcohol intake: never Alcohol use details: Maybe 2-3 per year Substance use: never Substance use type: does not use Do You Feel Safe in your Home?: Yes Lack of Transportation: No Lack of Food: Never True Current Housing: I Have Housing Concerned About Future Housing: No Difficulty Paying Gas/Electric Bills: No Difficulty Paying for Meds: No Currently Unemployed: No Education: High School Diploma/GED Difficulty w/ Childcare or Family Care: No Living arrangements: with family Occupation/Education: retired Additional occupation/education comments: Retired from the [employer]. Spiritual care concerns: No Agree to blood products: Yes Meds Home Medications and Allergies Home Medications ?Medication ?Instructions ?Recorded ?Confirmed ?Type aspirin 81 mg tablet,delayed 81 mg PO DAILY 10/31/21 03/14/25 History release carvedilol 25 mg tablet 25 mg PO BID 10/31/21 03/14/25 History insulin lispro 100 unit/mL 4 unit subcut .TIDAC 10/31/21 03/14/25 History subcutaneous pen loratadine 10 mg tablet (Claritin) 10 mg PO DAILY 10/31/21 03/14/25 History insulin glargine 100 unit/mL (3 6 unit subcut HS 11/07/23 03/14/25 History mL) subcutaneous pen (Lantus Solostar U-100 Insulin) cinacalcet 90 mg PO DAILY 12/12/23 03/14/25 History atorvastatin 20 mg tablet 20 mg PO HS 12/21/24 03/14/25 History finasteride 5 mg tablet (Proscar) 5 mg PO QAM #30 tabs 12/23/24 03/14/25 Rx furosemide 80 mg tablet 80 mg PO BID #60 tabs 12/23/24 03/14/25 Rx tamsulosin 0.4 mg capsule 0.4 mg PO QHS #30 caps 12/23/24 03/14/25 Rx acetaminophen 325 mg tablet 650 mg (2 x 325 mg) PO Q4H PRN 01/10/25 03/14/25 Rx Mild Pain (1-3) Or Fever #60 tabs pentoxifylline 400 mg 400 mg PO QPM 01/29/25 03/14/25 History tablet,extended release acetaminophen 300 mg-codeine 30 mg 1 tablet PO Q6H PRN pain, severe 02/16/25 03/14/25 History tablet amlodipine 10 mg tablet 10 mg PO DAILY 02/16/25 03/14/25 History bisacodyl 10 mg rectal suppository 10 mg RECTAL DAILY PRN constipation 02/16/25 03/14/25 History (Laxative (bisacodyl)) gabapentin 100 mg capsule 100 mg PO TID 02/16/25 03/14/25 History liraglutide 0.6 mg/0.1 mL (18 mg/3 1.2 mg subcut HS 02/16/25 03/14/25 History mL) subcutaneous pen injector loratadine 10 mg capsule (Allergy 10 mg PO DAILY PRN itching 02/16/25 03/14/25 History Relief (loratadine)) magnesium citrate (Citroma oral 296 ml PO .AM PRN constipation 02/16/25 03/14/25 History solution) magnesium hydroxide 400 mg/5 mL 30 ml PO HS PRN constipation 02/16/25 03/14/25 History oral suspension (Milk of Magnesia) sodium phosphates 19 gram-7 118 ml RECTAL DAILY PRN 02/16/25 03/14/25 History gram/118 mL enema (Fleet Enema) constipation vitamin B complex 1 cap PO DAILY 02/16/25 03/14/25 History acetaminophen 325 mg tablet 650 mg PO TID 03/10/25 03/14/25 History baclofen 5 mg tablet 5 mg PO TID 03/10/25 03/14/25 History cyclobenzaprine 10 mg tablet 10 mg PO Q8H PRN muscle spasm 03/10/25 03/14/25 History ipratropium 20 mcg-albuterol 100 1 puff inhalation Q6H PRN 03/10/25 03/14/25 History mcg/actuation mist for inhalation shortness of breath or wheezing (Combivent Respimat) loperamide 2 mg capsule 2 mg PO Q4H PRN loose stool 03/10/25 03/14/25 History losartan 100 mg tablet 100 mg PO DAILY PRN blood pressure 03/10/25 03/14/25 History melatonin 3 mg tablet 3 mg PO HS 03/10/25 03/14/25 History tramadol 50 mg tablet 50 mg PO BID 03/10/25 03/14/25 History umeclidinium 62.5 mcg/actuation 1 inh inhalation DAILY 03/10/25 03/14/25 History blister powder for inhalation (Incruse Ellipta) sevelamer carbonate 0.8 gram oral 0.8 g PO TIDWM 03/14/25 03/14/25 History powder packet Allergies Allergy/AdvReac Type Severity Reaction Status Date / Time No Known Allergies Allergy Verified 03/10/25 07:55 Vital Signs Vital Signs Temp Pulse Resp BP Pulse Ox O2 Del Method FiO2 03/14/25 11:30 63 145/79 H 03/14/25 11:19 62 14 100 BiPAP 21 03/14/25 11:15 82 125/76 03/14/25 11:10 62 14 100 BiPAP 03/14/25 11:00 77 155/92 H 03/14/25 10:49 85 149/86 H 03/14/25 10:35 97.7 F 64 16 157/77 H 94 03/14/25 10:20 97.6 F 64 16 137/57 L 98 03/14/25 10:20 Room Air 03/14/25 09:54 66 12 167/82 H 95 03/14/25 08:51 68 13 176/87 H 96 03/14/25 06:24 97.3 F L 64 12 146/67 H 93 Room Air Exam 2 Narrative: GENERAL APPEARANCE: elderly but well developed well nourished male in NAD (more responsive at this time per HD nurse compared to start of dialysis) HEENT: normocephalic, atraumatic, normal conjunctiva and sclera, nares patient NECK: no lymphadenopathy, thyromegaly, or JVD MOUTH: normal lips, teeth, and gums; BiPAP in place CARDIOVASCULAR: RRR, normal S1 and S2, no rub RESPIRATORY: clear anteriorly; decreased at bases ABDOMEN: soft, nontender, nondistended, positive bowel sounds present EXTREMITIES: no evidence of cyanosis, clubbing; trace edema NEUROLOGICAL: more awake and conversant (than on presentation); no focal deficits noted Results Lab Results 03/14/25 06:40 03/14/25 06:40 Lab results: Most recent lab results ABG pH 7.436 (7.350-7.450) 03/14/25 13:13 ABG pCO2 40.8 mmHg (35.0-45.0) 03/14/25 13:13 ABG pO2 73.6 mmHg (80.0-100.0) L 03/14/25 13:13 ABG HCO3 26.8 mEq/l (22.0-26.0) H 03/14/25 13:13 ABG O2 Saturation 95.2 % (95.0-100.0) 03/14/25 13:13 Calcium 10.8 mg/dL (8.4-10.2) H 03/14/25 06:40
[2025-03-14 13:26] LABS: Alveolar/Arterial O2 Gradient 27.3 mmHg; Base Excess ABG 2.4 mEq/l (+/-2.0); Carboxyhemoglobin 1.6 % THb (0-2.0); Fractional Inspired Oxygen 21 %; HCO3 ABG 26.8 mEq/l (22.0-26.0); Methemoglobin ABG 0.3 %THb (0-1.5); Oxygen Content ABG 15.3 %vol (16.0-22.0); Oxygen Saturation ABG 95.2 % (95.0-100.0); Oxyhemoglobin 94.4 % THb (90.0-100.0); PCO2 ABG 40.8 mmHg (35.0-45.0); PO2 ABG 73.6 mmHg (80.0-100.0); Reduced Hemoglobin 3.7 %THb (0-5.0); Total Hemoglobin 11.5 g/dL (12.0-18.0); pH ABG 7.436 (7.350-7.450)
[2025-03-14 13:30] LABS: Device BIPAP; Modified Allen's Test Pass; Site Drawn RIGHT BRACHIAL
[2025-03-14 13:31] LABS: Expiratory Pressure 8 cmH2O; Inspiratory Pressure 16 cmH2O
[2025-03-14] MEDS: EPOETIN ALFA-EPBX 4,000 UNITS/ML VIAL 4000 UNITS IV PUSH (13:35)
--- NOTE | 2025-03-14 14:06 | P.HP_ITS ---
H&P: HPI History of Present Illness Date/Time: 03/14/25 14:06 Chief Complaint: increased weakness Narrative: ER-HPI narrative: 79-year-old male present to the emergency department for evaluation for increased somnolence. Patient was just discharged from [facility] 2 days ago for similar symptoms. Patient does get dialysis on Tuesdays and Sunday. Patient did not have dialysis today. Patient was going to dialysis when he was too weak and was brought to the emergency department for evaluation. Patient has had multiple similar presentations since December. With the most rec ent discharge being 2 days ago. Patient was also complaining blurred vision and lower extremity weakness and this has also been chief complaint on similar visits. Patient is 79 y/o male with history of ESRD on HD has recurrent symptoms of weakness and blurry vision and get better after dialysis however today patient was quite somnolent upon arrival, ABG in the showed hypercapnia and patient was placed on BIPAP, this really helped patient mentation and repeat ABG showed improvement pCO2. most likely patient symptoms are stemming from hypercapnia, placed patient BIPAP at bedtime and during the day as needed, will consult captain's assistant as patient will need CPAP or BIPAP and night time ap[place] link. patient will be seen by his director marketing communications and further recommendation to follow. Review of Systems Review of Systems: As per HPI. [facility] Past Medical History Medical History Bilateral shoulder pain Diabetic polyneuropathy Diabetes Coronary artery disease Chronic obstructive pulmonary disease Diabetic peripheral neuropathy Anemia Atrial fibrillation Chronic neck and back pain Insomnia History of nephrolithiasis Sinus pause (~09/2024) Obstructive sleep apnea Intolerant to CPAP Insulin dependent type 2 diabetes mellitus (~2009) Benign prostatic hyperplasia Peripheral vascular disease (~03/2023) Internal hemorrhoid, bleeding End-stage renal disease on hemodialysis DVT dialysis Sunday History of colon polyps Environmental allergies Vitamin D deficiency Dyslipidemia Essential (primary) hypertension Surgical History Surgical History History of cardiac pacemaker (~10/2024) Medtronic pacemaker placed due to symptomatic sinus pauses causing syncope performed at [facility] Status post cataract extraction of both eyes with insertion of intraocular lens History of colonoscopy with polypectomy History of hemorrhoidectomy (~01/12/24) Anorectal evaluation under anesthesia and excisional hemorrhoidectomy x3 12/14/23 SAW S/P peripheral artery angioplasty (~03/2023) status post balloon angioplasty of bilateral common and external iliac arteries status post left iliofemoral endarterectomy Arteriovenous fistula of left upper extremity (~2017) History of appendectomy (~1962) History of coronary artery bypass graft (~2013) Family History Family History Mother Diabetes mellitus Acute myocardial infarction Family history of congestive heart failure Father Hypertension Social History Social History Social History: The patient is . He and his brother live together prior to his recent hospitalization and placement in to [facility]. He is retired after 26 years of serving in the [employer]. He has 4 children. He used to smoke 1.5-2 packs of cigarettes per day but quit smoking in approximately 2009. He will on a rare occasion drink an alcoholic beverage maybe 2 to 3 times a year. He denies illicit substance use. Surrogate medical decision maker: Wilian Morrissey, sibling. Code status: Full code. Caffeine- daily Smoking packs per day: 1.5 Smoking cigarettes per day: 30.0 Years smoked: 44 Smoking pack-years: 66.00 Smoking status: Never smoker Second hand tobacco smoke exposure: No Alcohol intake: never Alcohol use details: Maybe 2-3 per year Substance use: never Substance use type: does not use Do You Feel Safe in your Home?: Yes Lack of Transportation: No Lack of Food: Never True Current Housing: I Have Housing Concerned About Future Housing: No Difficulty Paying Gas/Electric Bills: No Difficulty Paying for Meds: No Currently Unemployed: No Education: High School Diploma/GED Difficulty w/ Childcare or Family Care: No Living arrangements: with family Occupation/Education: retired Additional occupation/education comments: Retired from the [employer]. Spiritual care concerns: No Agree to blood products: Yes Meds Home Medications and Allergies Home Medications ?Medication ?Instructions ?Recorded ?Confirmed ?Type aspirin 81 mg tablet,delayed 81 mg PO DAILY 10/31/21 03/14/25 History release carvedilol 25 mg tablet 25 mg PO BID 10/31/21 03/14/25 History insulin lispro 100 unit/mL 4 unit subcut .TIDAC 10/31/21 03/14/25 History subcutaneous pen loratadine 10 mg tablet (Claritin) 10 mg PO DAILY 10/31/21 03/14/25 History insulin glargine 100 unit/mL (3 6 unit subcut HS 11/07/23 03/14/25 History mL) subcutaneous pen (Lantus Solostar U-100 Insulin) cinacalcet 90 mg PO DAILY 12/12/23 03/14/25 History atorvastatin 20 mg tablet 20 mg PO HS 12/21/24 03/14/25 History finasteride 5 mg tablet (Proscar) 5 mg PO QAM #30 tabs 12/23/24 03/14/25 Rx furosemide 80 mg tablet 80 mg PO BID #60 tabs 12/23/24 03/14/25 Rx tamsulosin 0.4 mg capsule 0.4 mg PO QHS #30 caps 12/23/24 03/14/25 Rx acetaminophen 325 mg tablet 650 mg (2 x 325 mg) PO Q4H PRN 01/10/25 03/14/25 Rx Mild Pain (1-3) Or Fever #60 tabs pentoxifylline 400 mg 400 mg PO QPM 01/29/25 03/14/25 History tablet,extended release acetaminophen 300 mg-codeine 30 mg 1 tablet PO Q6H PRN pain, severe 02/16/25 03/14/25 History tablet amlodipine 10 mg tablet 10 mg PO DAILY 02/16/25 03/14/25 History bisacodyl 10 mg rectal suppository 10 mg RECTAL DAILY PRN constipation 02/16/25 03/14/25 History (Laxative (bisacodyl)) gabapentin 100 mg capsule 100 mg PO TID 02/16/25 03/14/25 History liraglutide 0.6 mg/0.1 mL (18 mg/3 1.2 mg subcut HS 02/16/25 03/14/25 History mL) subcutaneous pen injector loratadine 10 mg capsule (Allergy 10 mg PO DAILY PRN itching 02/16/25 03/14/25 History Relief (loratadine)) magnesium citrate (Citroma oral 296 ml PO .AM PRN constipation 02/16/25 03/14/25 History solution) magnesium hydroxide 400 mg/5 mL 30 ml PO HS PRN constipation 02/16/25 03/14/25 History oral suspension (Milk of Magnesia) sodium phosphates 19 gram-7 118 ml RECTAL DAILY PRN 02/16/25 03/14/25 History gram/118 mL enema (Fleet Enema) constipation vitamin B complex 1 cap PO DAILY 02/16/25 03/14/25 History acetaminophen 325 mg tablet 650 mg PO TID 03/10/25 03/14/25 History baclofen 5 mg tablet 5 mg PO TID 03/10/25 03/14/25 History cyclobenzaprine 10 mg tablet 10 mg PO Q8H PRN muscle spasm 03/10/25 03/14/25 History ipratropium 20 mcg-albuterol 100 1 puff inhalation Q6H PRN 03/10/25 03/14/25 History mcg/actuation mist for inhalation shortness of breath or wheezing (Combivent Respimat) loperamide 2 mg capsule 2 mg PO Q4H PRN loose stool 03/10/25 03/14/25 History losartan 100 mg tablet 100 mg PO DAILY PRN blood pressure 03/10/25 03/14/25 History melatonin 3 mg tablet 3 mg PO HS 03/10/25 03/14/25 History tramadol 50 mg tablet 50 mg PO BID 03/10/25 03/14/25 History umeclidinium 62.5 mcg/actuation 1 inh inhalation DAILY 03/10/25 03/14/25 History blister powder for inhalation (Incruse Ellipta) sevelamer carbonate 0.8 gram oral 0.8 g PO TIDWM 03/14/25 03/14/25 History powder packet Allergies Allergy/AdvReac Type Severity Reaction Status Date / Time No Known Allergies Allergy Verified 03/10/25 07:55 Vital Signs Vital Signs - 24 hr 03/14/25 06:24 03/14/25 08:51 03/14/25 09:54 Temperature 36.3 C L Pulse Rate 64 68 66 Respiratory Rate 12 13 12 Blood Pressure 146/67 H 176/87 H 167/82 H Pulse Oximetry 93 96 95 Oxygen Delivery Room Air Fraction of Inspired Oxygen 03/14/25 10:20 03/14/25 10:20 03/14/25 10:35 Temperature 36.4 C 36.5 C Pulse Rate 64 64 Respiratory Rate 16 16 Blood Pressure 137/57 L 157/77 H Pulse Oximetry 98 94 Oxygen Delivery Room Air Fraction of Inspired Oxygen 03/14/25 10:49 03/14/25 11:00 03/14/25 11:10 Temperature Pulse Rate 85 77 62 Respiratory Rate 14 Blood Pressure 149/86 H 155/92 H Pulse Oximetry 100 Oxygen Delivery BiPAP Fraction of Inspired Oxygen 03/14/25 11:15 03/14/25 11:19 03/14/25 11:30 Temperature Pulse Rate 82 62 63 Respiratory Rate 14 Blood Pressure 125/76 145/79 H Pulse Oximetry 100 Oxygen Delivery BiPAP Fraction of Inspired Oxygen 21 03/14/25 11:45 03/14/25 12:00 03/14/25 12:00 Temperature Pulse Rate 66 70 76 Respiratory Rate Blood Pressure 126/70 146/65 H Pulse Oximetry Oxygen Delivery Fraction of Inspired Oxygen 03/14/25 12:15 03/14/25 12:30 03/14/25 12:45 Temperature Pulse Rate 66 74 67 Respiratory Rate Blood Pressure 119/57 L 140/63 129/71 Pulse Oximetry Oxygen Delivery Fraction of Inspired Oxygen 03/14/25 13:00 03/14/25 13:15 03/14/25 13:30 Temperature Pulse Rate 72 91 68 Respiratory Rate Blood Pressure 130/74 131/89 120/65 Pulse Oximetry Oxygen Delivery Fraction of Inspired Oxygen 03/14/25 13:45 03/14/25 14:00 Temperature Pulse Rate 68 66 Respiratory Rate Blood Pressure 118/68 147/79 H Pulse Oximetry Oxygen Delivery Fraction of Inspired Oxygen Exam Narrative: Patient is comfortable, NAD HEENT: eyes are clear and none icteric LUNGS:CTA HEART: RR S1S2 ABD: BS+, Soft and nontender Lower extremities: no edema SKIN: nonjaundiced Neuro: grossly intact. H&P: Results Labs Labs: Short CBC 03/14/25 Range/Units 06:40 WBC 5.8 (4.5-10.0) K/mm3 Hgb 10.2 L (14.0-18.0) g/dL Hct 36.2 L (42.0-52.0) % Plt Count 193 (150-375) k/mm3 BMP 03/14/25 06:40 Sodium 139 Potassium 4.7 Chloride 103 Carbon Dioxide 29 BUN 36 H D Creatinine 5.77 H Glucose 124 H Calcium 10.8 H Liver Function 03/14/25 Range/Units 06:40 Total Bilirubin 0.3 (0.2-1.3) mg/dL AST 13 L (17-59) U/L ALT 11 (6-50) U/L Alkaline Phosphatase 54 (38-126) U/L Albumin 3.7 (3.5-5.1) g/dL Urine 03/14/25 Range/Units 09:00 Urine Color Yellow (Yellow) Urine Appearance Clear (Clear) Urine pH 7.0 (5.0-9.0) Ur Specific [place] 1.016 (1.001-1.035) Urine Protein 4+ H (Negative) mg/dL Urine Glucose (UA) 1+ H (Negative) mg/dL Assessment and Plan Assessment and plan (1) Acute exacerbation of CHF (congestive heart failure): Qualifiers: Heart failure type: unspecified Qualified Code(s): I50.9 - Heart failure, unspecified Code(s): I50.9 - Heart failure, unspecified Status: Acute (2) Atrial fibrillation: Code(s): I48.91 - Unspecified atrial fibrillation Status: Chronic (3) Peripheral vascular disease: Onset Date: ~03/2023 Code(s): I73.9 - Peripheral vascular disease, unspecified Status: Acute (4) Hypercapnia: Code(s): R06.89 - Other abnormalities of breathing Status: Acute Plan Patient is 79 y/o male with history of ESRD on HD has recurrent symptoms of weakness and blurry vision and get better after dialysis however today patient was quite somnolent upon arrival, ABG in the showed hypercapnia and patient was placed on BIPAP, this really helped patient mentation and repeat ABG showed improvement pCO2. most likely patient symptoms are stemming from hypercapnia, placed patient BIPAP at bedtime and during the day as needed, will consult captain's assistant as patient will need CPAP or BIPAP and night time [place] link. patient will be seen by his director marketing communications and further recommendation to follow.
[2025-03-14] MEDS: amLODIPine BESYLATE 10 MG TABLET PO (18:08)
[2025-03-14] MEDS: FINASTERIDE 5 MG TABLET PO (18:09)
[2025-03-14] MEDS: GABAPENTIN 100 MG CAPSULE PO (18:09)
[2025-03-14] MEDS: VITAMIN B COMPLEX CAPSULE 1 CAP PO (18:09)
[2025-03-14] MEDS: FUROSEMIDE 80 MG TABLET PO (18:09)
[2025-03-14] MEDS: CINACALCET 30 MG TABLET 90 MG PO (18:09)
[2025-03-14] MEDS: PENTOXIFYLLINE 400 MG TABCR PO (18:10)
[2025-03-14] MEDS: ASPIRIN 81 MG ENTERIC TABLET PO (18:10)
[2025-03-14] MEDS: LORATADINE 10 MG TABLET PO (18:10)
[2025-03-14] MEDS: ACETAMINOPHEN 325 MG TABLET 650 MG PO (18:22)
[2025-03-14] MEDS: traMADol HCL (*CRX) 50 MG TABLET PO (18:22)
[2025-03-14] MEDS: BACLOFEN 5 MG TABLET PO (18:22)
[2025-03-14] MEDS: SEVELAMER CARBONATE 0.8 GM ORAL POWDER PACKET PO (18:24)
[2025-03-14 18:25] LABS: Glucose Point of Care 92 mg/dl (65-105)
[2025-03-14] MEDS: INSULIN ASPART (*BKC) 100 UNITS/ML SUB-Q (18:25)
[2025-03-14 19:22] LABS: Glucose Point of Care 143 mg/dl (65-105)
[2025-03-14] MEDS: LEVALBUTEROL NEB 1.25 MG/3 ML 0.63 MG INHALATION (20:06)
[2025-03-14 20:20] LABS: MRSA (PCR) NOT DETECTED (NOT DETECTE)
[2025-03-14] MEDS: ATORVASTATIN 20 MG TABLET PO (20:59)
[2025-03-14] MEDS: MELATONIN 3 MG TABLET PO (20:59)
[2025-03-14] MEDS: INSULIN GLARGINE (*BKC) 100 UNITS/ML 6 UNITS SUB-Q (20:59)
[2025-03-14] MEDS: TAMSULOSIN HCL 0.4 MG CAPSULE PO (20:59)
[2025-03-14] MEDS: carvediloL 25 MG TABLET PO (20:59)
[2025-03-15] VITALS (20 sets, daily range): BP systolic 127–174; BP diastolic 40–76; PULSE 55–78; RESP 14–17; TEMP 36.1–36.8; O2SAT 94–100
[2025-03-15] MEDS: LEVALBUTEROL NEB 1.25 MG/3 ML 0.63 MG INHALATION ×4 (02:24→20:07)
[2025-03-15 06:57] LABS: Hematocrit 34.2 % (42.0-52.0); Hemoglobin 9.9 g/dL (14.0-18.0); Mean Corpuscular HGB Conc 28.9 g/dl (32-36); Mean Corpuscular Hemoglobin 27.2 pg (26-34); Mean Platelet Volume 10.6 fl (7.4-10.4); Platelet Count Result 195 k/mm3 (150-375); Red Blood Count 3.64 M/mm3 (4.6-6.20); Red Cell Distribution Width 18.7 % (11.5-14.5); White Blood Count 5.2 K/mm3 (4.5-10.0)
[2025-03-15 07:11] LABS: Alanine Aminotransferase 10 U/L (6-50); Albumin Level 3.4 g/dL (3.5-5.1); Alkaline Phosphatase 51 U/L (38-126); Anion Gap 6 mmol/L (4-12); Aspartate Amino Transferase 14 U/L (17-59); Bilirubin,Total 0.3 mg/dL (0.2-1.3); Blood Urea Nitrogen 23 mg/dL (9-20); Calcium 10.1 mg/dL (8.4-10.2); Carbon Dioxide 29 mmol/L (22-30); Chloride 104 mmol/L (98-107); Estimated CRCL calculation 13 ml/min; Estimated Glomerular Filt Rate 14; Glucose 85 mg/dL (65-110); Potassium 3.7 mmol/L (3.4-5.0); Sodium 139 mmol/L (137-145)
[2025-03-15 07:37] LABS: Glucose Point of Care 84 mg/dl (65-105)
[2025-03-15] MEDS: UMECLIDINIUM BROMIDE 62.5 MCG ELLIPTA 1 PUFF INHALATION (07:40)
[2025-03-15] MEDS: FUROSEMIDE 80 MG TABLET PO (08:38)
[2025-03-15] MEDS: SEVELAMER CARBONATE 0.8 GM ORAL POWDER PACKET PO ×2 (08:38→11:40)
[2025-03-15] MEDS: carvediloL 25 MG TABLET PO (08:38)
[2025-03-15] MEDS: ACETAMINOPHEN 325 MG TABLET 650 MG PO (08:38)
[2025-03-15] MEDS: BACLOFEN 5 MG TABLET PO (08:38)
[2025-03-15] MEDS: GABAPENTIN 100 MG CAPSULE PO (08:38)
[2025-03-15] MEDS: traMADol HCL (*CRX) 50 MG TABLET PO (08:41)
[2025-03-15] MEDS: FINASTERIDE 5 MG TABLET PO (11:36)
[2025-03-15] MEDS: CINACALCET 30 MG TABLET 90 MG PO (11:36)
[2025-03-15] MEDS: LORATADINE 10 MG TABLET PO (11:36)
[2025-03-15] MEDS: VITAMIN B COMPLEX CAPSULE 1 CAP PO (11:36)
[2025-03-15] MEDS: ASPIRIN 81 MG ENTERIC TABLET PO (11:36)
[2025-03-15 11:49] LABS: Glucose Point of Care 96 mg/dl (65-105)
--- NOTE | 2025-03-15 11:57 | PM.IMPN ---
Progress Note: A&P Assessment and Plan (1) Acute exacerbation of CHF (congestive heart failure): Qualifiers: Heart failure type: unspecified Qualified Code(s): I50.9 - Heart failure, unspecified Code(s): I50.9 - Heart failure, unspecified Status: Acute (2) Atrial fibrillation: Code(s): I48.91 - Unspecified atrial fibrillation Status: Chronic (3) Peripheral vascular disease: Onset Date: ~03/2023 Code(s): I73.9 - Peripheral vascular disease, unspecified Status: Acute (4) Hypercapnia: Code(s): R06.89 - Other abnormalities of breathing Status: Acute Plan Patient is 79 y/o male with history of ESRD on HD has recurrent symptoms of weakness and blurry vision and get better after dialysis however today patient was quite somnolent upon arrival, ABG in the showed hypercapnia and patient was placed on BIPAP, this really helped patient mentation and repeat ABG showed improvement pCO2. most likely patient symptoms are stemming from hypercapnia, placed patient BIPAP at bedtime and during the day as needed, will consult dispatcher automobile rental as patient will need CPAP or BIPAP and night time [place]. patient will be seen by his family support worker and further recommendation to follow. patient did pino BIPAP last night and feels much better more alert, and energetic, he has some cough with swallowing will have speech pathologist evaluate the patient. Subjective Date/time seen: 03/15/25 11:57 Interval history: Patient is 79 y/o male with history of ESRD on HD has recurrent symptoms of weakness and blurry vision and get better after dialysis however today patient was quite somnolent upon arrival, ABG in the showed hypercapnia and patient was placed on BIPAP, this really helped patient mentation and repeat ABG showed improvement pCO2. most likely patient symptoms are stemming from hypercapnia, placed patient BIPAP at bedtime and during the day as needed, will consult dispatcher automobile rental as patient will need CPAP or BIPAP and night time [place]. patient will be seen by his family support worker and further recommendation to follow. patient did pino BIPAP last night and feels much better more alert, and energetic, he has some cough with swallowing will have speech pathologist evaluate the patient. Review of Systems Review of Systems: As per HPI. Exam Narrative: Patient is comfortable, NAD HEENT: eyes are clear and none icteric LUNGS:CTA HEART: RR S1S2 ABD: BS+, Soft and nontender Lower extremities: no edema SKIN: nonjaundiced Neuro: grossly intact. Objective Data Vital Signs Vital Signs: Vital Signs - 24 hr 03/14/25 12:00 03/14/25 12:00 03/14/25 12:15 Temperature Pulse Rate 70 76 66 Respiratory Rate Blood Pressure 146/65 H 119/57 L Pulse Oximetry Oxygen Delivery Fraction of Inspired Oxygen 03/14/25 12:30 03/14/25 12:45 03/14/25 13:00 Temperature Pulse Rate 74 67 72 Respiratory Rate Blood Pressure 140/63 129/71 130/74 Pulse Oximetry Oxygen Delivery Fraction of Inspired Oxygen 03/14/25 13:15 03/14/25 13:30 03/14/25 13:45 Temperature Pulse Rate 91 68 68 Respiratory Rate Blood Pressure 131/89 120/65 118/68 Pulse Oximetry Oxygen Delivery Fraction of Inspired Oxygen 03/14/25 14:00 03/14/25 14:15 03/14/25 14:20 Temperature Pulse Rate 66 71 75 Respiratory Rate Blood Pressure 147/79 H 113/63 101/60 Pulse Oximetry Oxygen Delivery Fraction of Inspired Oxygen 03/14/25 14:24 03/14/25 15:12 03/14/25 15:15 Temperature 36.2 C L 36.2 C L Pulse Rate 72 68 Respiratory Rate 18 20 Blood Pressure 109/64 143/82 H Pulse Oximetry 96 95 Oxygen Delivery Room Air Fraction of Inspired Oxygen 03/14/25 15:58 03/14/25 16:00 03/14/25 20:00 Temperature Pulse Rate 67 57 L Respiratory Rate 24 H Blood Pressure Pulse Oximetry 100 Oxygen Delivery BiPAP Room Air Fraction of Inspired Oxygen 03/14/25 20:00 03/14/25 20:06 03/14/25 20:06 Temperature Pulse Rate 77 82 82 Respiratory Rate 18 18 Blood Pressure Pulse Oximetry 95 Oxygen Delivery Room Air Fraction of Inspired Oxygen 03/14/25 20:15 03/14/25 20:37 03/14/25 23:00 Temperature 36.6 C Pulse Rate 88 77 77 Respiratory Rate 18 14 Blood Pressure 146/52 H Pulse Oximetry 93 93 Oxygen Delivery BiPAP Fraction of Inspired Oxygen 03/15/25 00:00 03/15/25 02:24 03/15/25 02:24 Temperature Pulse Rate 72 63 63 Respiratory Rate 14 14 Blood Pressure Pulse Oximetry 97 Oxygen Delivery BiPAP Fraction of Inspired Oxygen 03/15/25 04:00 03/15/25 05:50 03/15/25 07:35 Temperature 36.8 C Pulse Rate 61 69 Respiratory Rate 17 Blood Pressure 142/76 H Pulse Oximetry 100 96 Oxygen Delivery Room Air Fraction of Inspired Oxygen 21 03/15/25 07:35 03/15/25 07:40 03/15/25 08:00 Temperature Pulse Rate 78 72 63 Respiratory Rate 16 16 Blood Pressure Pulse Oximetry Oxygen Delivery Fraction of Inspired Oxygen 03/15/25 08:00 03/15/25 08:38 03/15/25 11:26 Temperature Pulse Rate 70 Respiratory Rate Blood Pressure 127/40 L Pulse Oximetry 96 Oxygen Delivery Room Air Fraction of Inspired Oxygen Intake/Output Intake/Output: Intake & Output 03/12/25 03/13/25 03/14/25 03/15/25 23:59 23:59 23:59 23:59 Intake Total 360 400 Output Total 2750 Balance -2390 400 Meds/Results Medications: Active Medications Generic Name Dose Route Start Last Admin Trade Name Freq PRN Reason Stop Dose Admin Acetaminophen 650 mg 03/14/25 17:00 03/15/25 08:38 Acetaminophen 325 Mg Tablet PO 650 mg TID DAVID Administration Acetaminophen 650 mg 03/14/25 14:27 Acetaminophen 325 Mg Tablet PO Q4H PRN Mild Pain (1-3) Or Fever Amlodipine Besylate 10 mg 03/14/25 14:40 03/14/25 18:08 Amlodipine Besylate 10 Mg Tablet PO 10 mg DAILY DAVID Administration Aspirin 81 mg 03/14/25 14:40 03/15/25 11:36 Aspirin 81 Mg Enteric Tablet PO 81 mg DAILY DAVID Administration Atorvastatin Calcium 20 mg 03/14/25 21:00 03/14/25 20:59 Atorvastatin 20 Mg Tablet PO 20 mg HS DAVID Administration Baclofen 5 mg 03/14/25 17:00 03/15/25 08:38 Baclofen 5 Mg Tablet PO 5 mg TID DAVID Administration Bisacodyl 10 mg 03/14/25 14:27 Bisacodyl 10 Mg Suppository RECTAL DAILY PRN constipation Carvedilol 25 mg 03/14/25 21:00 03/15/25 08:38 Carvedilol 25 Mg Tablet PO 25 mg Q12HR DAVID Administration Cinacalcet 90 mg 03/14/25 14:40 03/15/25 11:36 Cinacalcet 30 Mg Tablet PO 90 mg DAILY DAVID Administration Cyclobenzaprine HCl 10 mg 03/14/25 14:27 Cyclobenzaprine Hcl 10 Mg Tablet PO Q8H PRN muscle spasm Finasteride 5 mg 03/14/25 14:40 03/15/25 11:36 Finasteride 5 Mg Tablet PO 5 mg QAM DAVID Administration Furosemide 80 mg 03/14/25 17:00 03/15/25 08:38 Furosemide 80 Mg Tablet PO 80 mg BID DAVID Administration Gabapentin 100 mg 03/14/25 17:00 03/15/25 08:38 Gabapentin 100 Mg Capsule PO 100 mg TID DAVID Administration Albumin Human 50 mls @ 999 mls/hr 03/14/25 09:25 Albutein IVPB 04/13/25 09:24 Q10M PRN HYPOTENSION Insulin Aspart 4 units 03/14/25 17:00 03/15/25 09:00 Insulin Aspart (*Bkc) 100 Units/Ml SUB-Q Not Given ACINSULIN [facility] Insulin Glargine 6 units 03/14/25 21:00 03/14/25 20:59 Insulin Glargine (*Bkc) 100 Units/Ml SUB-Q 6 units HS [facility] Administration Levalbuterol HCl 0.63 mg 03/14/25 20:00 03/15/25 07:35 Levalbuterol Neb 1.25 Mg/3 Ml INHALATION 0.63 mg Q6HRT DAVID Administration Loperamide HCl 2 mg 03/14/25 14:27 Loperamide Hcl 2 Mg Capsule PO Q4H PRN loose stool Loratadine 10 mg 03/14/25 14:50 03/15/25 11:36 Loratadine 10 Mg Tablet PO 10 mg DAILY DAVID Administration Loratadine 10 mg 03/14/25 14:27 Loratadine 10 Mg Tablet PO DAILY PRN itching Losartan Potassium 100 mg 03/14/25 16:09 Losartan Potassium 100 Mg Tablet PO DAILY PRN blood pressure Magnesium Citrate 296 ml 03/14/25 14:27 Magnesium Citrate 300 Ml Btl PO QAM PRN constipation Magnesium Hydroxide 30 ml 03/14/25 14:27 Magnesium Hydroxide Susp 30 Ml Udc PO HS PRN constipation Melatonin 3 mg 03/14/25 21:00 03/14/25 20:59 Melatonin 3 Mg Tablet PO 3 mg HS DAVID Administration Miscellaneous Information 1 each 03/15/25 00:01 Liraglutide Is Nonform; Can Pt Use From Home? XX 04/14/25 00:00 CLARIFY DAVID Non-Formulary Medication 1.2 mg 03/14/25 21:00 Liraglutide SUB-Q 04/13/25 20:59 HS DAVID Pentoxifylline 400 mg 03/14/25 18:00 03/14/25 18:10 Pentoxifylline 400 Mg Tabcr PO 400 mg QPM DAVID Administration Sevelamer Carbonate 0.8 gm 03/14/25 17:00 03/15/25 11:40 Sevelamer Carbonate 0.8 Gm Oral Powder Packet PO 0.8 gm TIDWM DAVID Administration Tamsulosin HCl 0.4 mg 03/14/25 21:00 03/14/25 20:59 Tamsulosin Hcl 0.4 Mg Capsule PO 0.4 mg QHS DAVID Administration Tramadol HCl 50 mg 03/14/25 17:00 03/15/25 08:41 Tramadol Hcl (*Crx) 50 Mg Tablet PO 50 mg BID DAVID Administration Umeclidinium [place] 1 puff 03/15/25 08:00 03/15/25 07:40 Umeclidinium [place] 62.5 Mcg Ellipta INHALATION 1 puff DAILYRT DAVID Administration Vitamin B Complex 1 cap 03/14/25 14:50 03/15/25 11:36 Vitamin B Complex Capsule PO 1 cap DAILY DAVID Administration Radiology Results: ITS Impressions Head CT 03/14/25 07:24 IMPRESSION: 1. 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 No acute intracranial process. 2. Age-related changes including moderate diffuse volume loss and moderate scattered white matter hypoattenuation consistent with chronic small vessel ischemic disease. 3. Sinus disease. Chest X-Ray 03/14/25 07:59 IMPRESSION: 1. Pulmonary vascular congestion with no other acute cardiopulmonary disease. Labs Labs: Laboratory Results - last 24 hr 03/14/25 03/14/25 03/14/25 13:13 18:23 19:00 WBC RBC Hgb Hct MCV MCH MCHC RDW Plt Count MPV Puncture Site Right brachial ABG pH 7.436 ABG pCO2 40.8 ABG pO2 73.6 L ABG PO2/FiO2 Ratio 3.50 ABG HCO3 26.8 H ABG O2 Saturation 95.2 ABG O2 Content 15.3 L ABG Base Excess 2.4 A-a Gradient 27.3 Oxyhemoglobin 94.4 Carboxyhemoglobin 1.6 Methemoglobin 0.3 Reduced Hemoglobin 3.7 Total Hemoglobin 11.5 L O2 Delivery Device Bipap O2 Liters/Min Not Reportable FiO2 21 Expiratory Pressure 8 Inspiratory Pressure 16 Sodium Potassium Chloride Carbon Dioxide Anion Gap BUN Creatinine Estim Creat Clear Calc Estimated GFR Glucose POC Capillary Glucose 92 Calcium Total Bilirubin AST ALT Alkaline Phosphatase Total Protein Albumin Nasal MRSA (PCR) Not detected 03/14/25 03/15/25 03/15/25 19:19 06:52 07:34 WBC 5.2 RBC 3.64 L Hgb 9.9 L Hct 34.2 L MCV 94.0 MCH 27.2 MCHC 28.9 L RDW 18.7 H Plt Count 195 MPV 10.6 H Puncture Site ABG pH ABG pCO2 ABG pO2 ABG PO2/FiO2 Ratio ABG HCO3 ABG O2 Saturation ABG O2 Content ABG Base Excess A-a Gradient Oxyhemoglobin Carboxyhemoglobin Methemoglobin Reduced Hemoglobin Total Hemoglobin O2 Delivery Device O2 Liters/Min FiO2 Expiratory Pressure Inspiratory Pressure Sodium 139 Potassium 3.7 Chloride 104 Carbon Dioxide 29 Anion Gap 6 BUN 23 H D Creatinine 4.21 H Estim Creat Clear Calc 13 Estimated GFR 14 L Glucose 85 POC Capillary Glucose 143 H 84 Calcium 10.1 Total Bilirubin 0.3 AST 14 L ALT 10 Alkaline Phosphatase 51 Total Protein 6.0 L Albumin 3.4 L Nasal MRSA (PCR) 03/15/25 11:46 WBC RBC Hgb Hct MCV MCH MCHC RDW Plt Count MPV Puncture Site ABG pH ABG pCO2 ABG pO2 ABG PO2/FiO2 Ratio ABG HCO3 ABG O2 Saturation ABG O2 Content ABG Base Excess A-a Gradient Oxyhemoglobin Carboxyhemoglobin Methemoglobin Reduced Hemoglobin Total Hemoglobin O2 Delivery Device O2 Liters/Min FiO2 Expiratory Pressure Inspiratory Pressure Sodium Potassium Chloride Carbon Dioxide Anion Gap BUN Creatinine Estim Creat Clear Calc Estimated GFR Glucose POC Capillary Glucose 96 Calcium Total Bilirubin AST ALT Alkaline Phosphatase Total Protein Albumin Nasal MRSA (PCR)
--- NOTE | 2025-03-15 12:10 | PC.NURSE ---
Dr Siegel notified of patient having in involuntary jerking and movement of body. Patient stated that it started couple days ago.
--- NOTE | 2025-03-15 12:43 | PCSTNOTE ---
Please refer to the Bedside Swallow Evaluation in the EMR. Please note, silent aspiration cannot be ruled out at bedside. This 79 year old male was admitted to [facility] on 03/14/25 from his nursing facility due to increased somnolence. The patient was just discharged from [facility] on 03/12/25 after being hospitalized for shortness of breath, blurry vision, and upper extremity weakness/tremors. A bedside swallow evaluation (BSE) was ordered this date due to the pt demonstrating a cough during oral intake. JIMMY Hudson stated that the pt tends to demonstrate difficulty on all consistencies, including pills. Upon entry, the pt was sitting in his chair watching tv. Pt agreed to work with ST and verbalized that he just started having trouble swallowing yesterday, 03/14, when taking his pills. An oral mechanism exam was completed and the pt demonstrated appropriate range of mobility and strength for oral intake. He is missing some teeth. Trials of thin liquid (water), mixed consistency (fruit cocktail), and solids (jorge cracker) were administered at bedside via straw, spoon, and hand. During these trials of oral intake, the pt was encouraged to eat/drink independently. The pt demonstrated involuntary upper body movements this date, and would often knock things off the table or miss his mouth. At this time it is recommended that the pt have 1:1 supervision and assistance during meals. Throughout all trials of different consistencies, the pt demonstrated a wet/gurgly vocal quality and a throat clear or cough. No oral residue observed, but when the pt was chewing he reached for another bite. ST verbalized that the pt needs to abide by standard swallowing precautions, specifically small bites/sips and one at a time. The pt verbalized that he never waits to swallow before taking another bite. ST educated pt on standard swallowing precautions this date. The pt demonstrated delayed triggering of the swallow on most trials, and reduced laryngeal elevation. Please note that silent aspiration cannot be ruled out at bedside. Given the results of this assessment, it is recommended this pt be NPO until the completion of an MBSS An MBSS cannot be completed today, 03/15 due to no Radiologist being on site. The MBSS will either be completed tomorrow, 03/16 or Sunday, 03/17. It is additionally recommended that following the completion of the MBSS, the pt receive further education regarding standard swallowing precautions. Dr. Siegel and JIMMY Hudson were notified of BSE results and recommendations. Thank you for this referral.
--- NOTE | 2025-03-15 14:17 | P.PNNP_ITS ---
Progress Note: A&P Assessment and Plan (1) End stage renal disease: Code(s): N18.6 - End stage renal disease Status: Chronic Assessment and Plan: * HD yesterday * continue T/T/S outpatient dialysis schedule while hospitalized * follow electrolytes, volume status, and clearance (2) Altered mental status: Code(s): R41.82 - Altered mental status, unspecified Status: Acute Assessment and Plan: * significant improvement noted * as noted on presentation to ER/hospital * evaluation noted so far: * ABG with acidosis and mild CO2 retention (improvement noted with BiPAP) * CT of head without acute pathology * UA with possible/questionable infection * normal WBC * medication related (pain meds, baclofen, flexiril, gabapentin...etc) * hypercalcemia -- however, calcium level has been higher in the past without any neurological issues) * other(?) * improvement with BiPAP therapy noted * Pulmonary consulted for further assessmenet * hold sedating medications (would not restart baclofen) * follow trend of mentation (3) Volume overload: Code(s): E87.70 - Fluid overload, unspecified Status: Acute Assessment and Plan: * as noted by admission CXR findings * however, relatively mild in comparison to previous admissions * fluid/ultrafiltration with dialysis to maintain euvolemia * in the past, this dsssssssshas been complicated by his COPD/reactive airway disease (4) Atrial fibrillation: Code(s): I48.91 - Unspecified atrial fibrillation Status: Chronic Assessment and Plan: * rate control strategy * restarted anticoagulation (Eliquis) last hospitalization * apparently previously held due to issues with GI bleeding (5) Hypercalcemia: Code(s): E83.52 - Hypercalcemia Status: Chronic Assessment and Plan: * doing better * noted on last couple of hospitalizations as well * not clear on etiology * sensipar/cinacalcet usually causes hypocalcemia * possibly due to prolonged immobilization/bed bound state? * adjusting calcium bath with dialysis to compensate (6) Anemia: Code(s): D64.9 - Anemia, unspecified Status: Chronic Assessment and Plan: * due to ESRD * Epogen with HD * follow trend of H/H (7) Essential (primary) hypertension: Code(s): I10 - Essential (primary) hypertension Status: Chronic Assessment and Plan: * reasonable control * fluid removal with HD helps to some degree * resume home medications * follow trend of hemodynamics (8) IDDM (insulin dependent diabetes mellitus): Status: Chronic Assessment and Plan: * follow accu-cheks * glycemic control per hospitalist Will continue to follow. L Subjective Date/time seen: 03/15/25 11:42 Interval history: Follow-up for end stage renal disease on hemodialysis. Tolerated dialysis treatment yesterday without any issues or problems; mentation/mental status has significantly improved with the use of BiPAP therapy arguing that CO2 retention/narcosis to blame for AMS on admission; no apparent distress noted at the time of my visit Exam 2 Narrative: General: elderly WD/WN male in NAD Heart: normal S1 and S2; no rub Lungs: coarse breath sounds at bases Abdomen: soft, nontender, nondistended, positive bowel sounds Extremities: no cyanosis or clubbing; trace edema Skin: warm and dry Objective Data Vital Signs Vital Signs: Vital Signs Temp Pulse Resp BP Pulse Ox O2 Del Method FiO2 03/15/25 11:26 127/40 L 03/15/25 08:38 70 03/15/25 08:00 96 Room Air 03/15/25 08:00 63 03/15/25 07:40 72 16 03/15/25 07:35 78 16 03/15/25 07:35 96 Room Air 21 03/15/25 05:50 98.2 F 69 17 142/76 H 100 03/15/25 04:00 61 03/15/25 02:24 63 14 03/15/25 02:24 63 14 97 BiPAP 03/15/25 00:00 72 03/14/25 23:00 77 93 BiPAP 03/14/25 20:37 97.8 F 77 14 146/52 H 93 03/14/25 20:15 88 18 03/14/25 20:06 82 18 03/14/25 20:06 82 18 95 Room Air 21 03/14/25 20:00 77 03/14/25 20:00 Room Air Intake/Output Intake/Output: Intake & Output 03/12/25 03/13/25 03/14/25 03/15/25 23:59 23:59 23:59 23:59 Intake Total 360 400 Output Total 2750 Balance -2390 400 Meds/Results Medications: Active Medications Generic Name Dose Route Start Last Admin Trade Name [place] PRN Reason Stop Dose Admin Acetaminophen 650 mg 03/14/25 17:00 03/15/25 16:51 Acetaminophen 325 Mg Tablet PO Not Given TID DAVID Acetaminophen 650 mg 03/14/25 14:27 Acetaminophen 325 Mg Tablet PO Q4H PRN Mild Pain (1-3) Or Fever Amlodipine Besylate 10 mg 03/14/25 14:40 03/15/25 12:09 Amlodipine Besylate 10 Mg Tablet PO Not Given DAILY DAVID Aspirin 81 mg 03/14/25 14:40 03/15/25 11:36 Aspirin 81 Mg Enteric Tablet PO 81 mg DAILY DAVID Administration Atorvastatin Calcium 20 mg 03/14/25 21:00 03/14/25 20:59 Atorvastatin 20 Mg Tablet PO 20 mg HS DAVID Administration Baclofen 5 mg 03/14/25 17:00 03/15/25 16:51 Baclofen 5 Mg Tablet PO Not Given TID DAVID Bisacodyl 10 mg 03/14/25 14:27 Bisacodyl 10 Mg Suppository RECTAL DAILY PRN constipation Carvedilol 25 mg 03/14/25 21:00 03/15/25 08:38 Carvedilol 25 Mg Tablet PO 25 mg Q12HR DAVID Administration Cinacalcet 90 mg 03/14/25 14:40 03/15/25 11:36 Cinacalcet 30 Mg Tablet PO 90 mg DAILY DAVID Administration Cyclobenzaprine HCl 10 mg 03/14/25 14:27 Cyclobenzaprine Hcl 10 Mg Tablet PO Q8H PRN muscle spasm Finasteride 5 mg 03/14/25 14:40 03/15/25 11:36 Finasteride 5 Mg Tablet PO 5 mg QAM DAVID Administration Furosemide 80 mg 03/14/25 17:00 03/15/25 16:51 Furosemide 80 Mg Tablet PO Not Given BID DAVID Gabapentin 100 mg 03/14/25 17:00 03/15/25 16:51 Gabapentin 100 Mg Capsule PO Not Given TID [facility] Albumin Human 50 mls @ 999 mls/hr 03/14/25 09:25 Albutein IVPB 04/13/25 09:24 Q10M PRN HYPOTENSION Insulin Aspart 4 units 03/14/25 17:00 03/15/25 16:51 Insulin Aspart (*Bkc) 100 Units/Ml SUB-Q Not Given ACINSULIN [facility] Insulin Glargine 6 units 03/14/25 21:00 03/14/25 20:59 Insulin Glargine (*Bkc) 100 Units/Ml SUB-Q 6 units HS DAVID Administration Levalbuterol HCl 0.63 mg 03/14/25 20:00 03/15/25 13:46 Levalbuterol Neb 1.25 Mg/3 Ml INHALATION 0.63 mg Q6HRT DAVID Administration Loperamide HCl 2 mg 03/14/25 14:27 Loperamide Hcl 2 Mg Capsule PO Q4H PRN loose stool Loratadine 10 mg 03/14/25 14:50 03/15/25 11:36 Loratadine 10 Mg Tablet PO 10 mg DAILY DAVID Administration Loratadine 10 mg 03/14/25 14:27 Loratadine 10 Mg Tablet PO DAILY PRN itching Losartan Potassium 100 mg 03/14/25 16:09 Losartan Potassium 100 Mg Tablet PO DAILY PRN blood pressure Magnesium Citrate 296 ml 03/14/25 14:27 Magnesium Citrate 300 Ml Btl PO QAM PRN constipation Magnesium Hydroxide 30 ml 03/14/25 14:27 Magnesium Hydroxide Susp 30 Ml Udc PO HS PRN constipation Melatonin 3 mg 03/14/25 21:00 03/14/25 20:59 Melatonin 3 Mg Tablet PO 3 mg HS DAVID Administration Miscellaneous Information 1 each 03/15/25 00:01 Liraglutide Is Nonform; Can Pt Use From Home? XX 04/14/25 00:00 CLARIFY DAVID Non-Formulary Medication 1.2 mg 03/14/25 21:00 Liraglutide SUB-Q 04/13/25 20:59 HS [facility] Pentoxifylline 400 mg 03/14/25 18:00 03/15/25 16:52 Pentoxifylline 400 Mg Tabcr PO Not Given QPM DAVID Sevelamer Carbonate 0.8 gm 03/14/25 17:00 03/15/25 16:51 Sevelamer Carbonate 0.8 Gm Oral Powder Packet PO Not Given TIDWM DAVID Tamsulosin HCl 0.4 mg 03/14/25 21:00 03/14/25 20:59 Tamsulosin Hcl 0.4 Mg Capsule PO 0.4 mg QHS DAVID Administration Tramadol HCl 50 mg 03/14/25 17:00 03/15/25 16:52 Tramadol Hcl (*Crx) 50 Mg Tablet PO Not Given BID DAVID Umeclidinium [place] 1 puff 03/15/25 08:00 03/15/25 07:40 Umeclidinium [place] 62.5 Mcg Ellipta INHALATION 1 puff DAILYRT DAVID Administration Vitamin B Complex 1 cap 03/14/25 14:50 03/15/25 11:36 Vitamin B Complex Capsule PO 1 cap DAILY DAVID Administration Radiology Results: ITS Impressions Head CT 03/14/25 07:24 IMPRESSION: 1. 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 No acute intracranial process. 2. Age-related changes including moderate diffuse volume loss and moderate scattered white matter hypoattenuation consistent with chronic small vessel ischemic disease. 3. Sinus disease. Chest X-Ray 03/14/25 07:59 IMPRESSION: 1. Pulmonary vascular congestion with no other acute cardiopulmonary disease. Labs Labs: Laboratory Tests 03/15/25 06:52 03/15/25 06:52 Calcium 10.1 Total Bilirubin 0.3 AST 14 L ALT 10 Alkaline Phosphatase 51 Total Protein 6.0 L Albumin 3.4 L
--- NOTE | 2025-03-15 16:29 | WPDNEURCNPN ---
Assessment and Plan Assessment and plan (1) Altered mental status: Code(s): R41.82 - Altered mental status, unspecified Status: Acute (2) Seizure disorder: Code(s): G40.909 - Epilepsy, unspecified, not intractable, without status epilepticus Status: Acute (3) Diabetic polyneuropathy: Code(s): E11.42 - Type 2 diabetes mellitus with diabetic polyneuropathy Status: Acute (4) Daytime somnolence: Code(s): R40.0 - Somnolence Status: Acute (5) Atrial fibrillation: Code(s): I48.91 - Unspecified atrial fibrillation Status: Chronic (6) IDDM (insulin dependent diabetes mellitus): Status: Chronic (7) Diabetic ulcer of left foot: Qualifiers: Diabetic foot ulcer location: heel Diabetes mellitus type: type 2 Non-pressure ulcer stage: limited to breakdown of skin Qualified Code(s): E11.621 - Type 2 diabetes mellitus with foot ulcer; L97.421 - Non-pressure chronic ulcer of left heel and midfoot limited to breakdown of skin Code(s): E11.621 - Type 2 diabetes mellitus with foot ulcer; L97.529 - Non-pressure chronic ulcer of other part of left foot with unspecified severity Status: Acute (8) End-stage renal disease on hemodialysis: Code(s): N18.6 - End stage renal disease; Z99.2 - Dependence on renal dialysis Status: Acute (9) Anemia: Code(s): D64.9 - Anemia, unspecified Status: Acute (10) Obstructive sleep apnea: Code(s): G47.33 - Obstructive sleep apnea (adult) (pediatric) Status: Acute Plan Is drowsiness appears to be significant issue. Complaints of diplopia. It is difficult to do a reliable B Mental status evaluation in view of the drowsiness. I also try to see him yesterday when he was not able to cooperate and he was in dialysis and had a BiPAP in place. He said to more alert today than he was yesterday. Try to see him again hopefully when he is more alert do a formal memory test to see if he has underlying dementia. His urine toxicology was positive for opiates. He has a CPAP machine but does not use it. Apparently he is able to use the BiPAP here in the hospital and probably should be seen by a sleep physician to take care of his a drowsiness which could due to sleep apnea syndrome. His pCO2 level was at 53 yesterday and 40.8 today and a this apparently happened due to the use of BiPAP. He should be encouraged to use the same on a more regular basis. I shall be glad to evaluate him from neurologic point of view once he is able to cooperate better. Consult date: 03/15/25 HPI: Sam Morrissey is a 79 year old male With history of chronic kidney disease on hemodialysis and obstructive sleep apnea syndrome noncompliant with CPAP was seen for neurological evaluation patient is very sleepy and he was given BiPAP yesterday and this morning and that seems to have helped nevertheless he does go back to sleep while I am talking to him. He does complain of seeing double and that is about the only thing he talks about. Denies any headache. He also history of atrial fibrillation and has a cardiac pacemaker in place and there is a history of diabetes mellitus. He cannot have MRI because of pacemaker. He has had a coronary artery bypass grafting. Patient is not able to give me any more detailed history since he is very sleepy although he does wake up briefly. Review of Systems Review of Systems: Complaints of diplopia but when I tested with my fingers he was unable to tell me on in which direction does see double since he fairly quickly falls asleep. All systems reviewed & are unremarkable except as noted in HPI and below PMFSH Past Medical History Medical History Bilateral shoulder pain Diabetic polyneuropathy Diabetes Coronary artery disease Chronic obstructive pulmonary disease Diabetic peripheral neuropathy Anemia Atrial fibrillation Chronic neck and back pain Insomnia History of nephrolithiasis Sinus pause (~09/2024) Obstructive sleep apnea Intolerant to CPAP Insulin dependent type 2 diabetes mellitus (~2009) Benign prostatic hyperplasia Peripheral vascular disease (~03/2023) Internal hemorrhoid, bleeding End-stage renal disease on hemodialysis DVT dialysis Sunday History of colon polyps Environmental allergies Vitamin D deficiency Dyslipidemia Essential (primary) hypertension Surgical History Surgical History History of cardiac pacemaker (~10/2024) Medtronic pacemaker placed due to symptomatic sinus pauses causing syncope performed at [facility] Status post cataract extraction of both eyes with insertion of intraocular lens History of colonoscopy with polypectomy History of hemorrhoidectomy (~01/12/24) Anorectal evaluation under anesthesia and excisional hemorrhoidectomy x3 12/14/23 [facility] S/P peripheral artery angioplasty (~03/2023) status post balloon angioplasty of bilateral common and external iliac arteries status post left iliofemoral endarterectomy Arteriovenous fistula of left upper extremity (~2017) History of appendectomy (~1962) History of coronary artery bypass graft (~2013) Family History Family History Mother Diabetes mellitus Acute myocardial infarction Family history of congestive heart failure Father Hypertension Social History Social History Social History: The patient is . He and his brother live together prior to his recent hospitalization and placement in to [facility]. He is retired after 26 years of serving in the [employer]. He has 4 children. He used to smoke 1.5-2 packs of cigarettes per day but quit smoking in approximately 2009. He will on a rare occasion drink an alcoholic beverage maybe 2 to 3 times a year. He denies illicit substance use. Surrogate medical decision maker: Wilian Morrissey, sibling. Code status: Full code. Caffeine- daily Smoking packs per day: 1.5 Smoking cigarettes per day: 30.0 Years smoked: 44 Smoking pack-years: 66.00 Smoking status: Never smoker Second hand tobacco smoke exposure: No Alcohol intake: never Alcohol use details: Maybe 2-3 per year Substance use: never Substance use type: does not use Do You Feel Safe in your Home?: Yes Lack of Transportation: No Lack of Food: Never True Current Housing: I Have Housing Concerned About Future Housing: No Difficulty Paying Gas/Electric Bills: No Difficulty Paying for Meds: No Currently Unemployed: No Education: High School Diploma/GED Difficulty w/ Childcare or Family Care: No Living arrangements: with family Occupation/Education: retired Additional occupation/education comments: Retired from the [employer]. Spiritual care concerns: No Agree to blood products: Yes Meds Home Medications and Allergies Home Medications ?Medication ?Instructions ?Recorded ?Confirmed ?Type aspirin 81 mg tablet,delayed 81 mg PO DAILY 10/31/21 03/14/25 History release carvedilol 25 mg tablet 25 mg PO BID 10/31/21 03/14/25 History insulin lispro 100 unit/mL 4 unit subcut .TIDAC 10/31/21 03/14/25 History subcutaneous pen loratadine 10 mg tablet (Claritin) 10 mg PO DAILY 10/31/21 03/14/25 History insulin glargine 100 unit/mL (3 6 unit subcut HS 11/07/23 03/14/25 History mL) subcutaneous pen (Lantus Solostar U-100 Insulin) cinacalcet 90 mg PO DAILY 12/12/23 03/14/25 History atorvastatin 20 mg tablet 20 mg PO HS 12/21/24 03/14/25 History finasteride 5 mg tablet (Proscar) 5 mg PO QAM #30 tabs 12/23/24 03/14/25 Rx furosemide 80 mg tablet 80 mg PO BID #60 tabs 12/23/24 03/14/25 Rx tamsulosin 0.4 mg capsule 0.4 mg PO QHS #30 caps 12/23/24 03/14/25 Rx acetaminophen 325 mg tablet 650 mg (2 x 325 mg) PO Q4H PRN 01/10/25 03/14/25 Rx Mild Pain (1-3) Or Fever #60 tabs pentoxifylline 400 mg 400 mg PO QPM 01/29/25 03/14/25 History tablet,extended release acetaminophen 300 mg-codeine 30 mg 1 tablet PO Q6H PRN pain, severe 02/16/25 03/14/25 History tablet amlodipine 10 mg tablet 10 mg PO DAILY 02/16/25 03/14/25 History bisacodyl 10 mg rectal suppository 10 mg RECTAL DAILY PRN constipation 02/16/25 03/14/25 History (Laxative (bisacodyl)) gabapentin 100 mg capsule 100 mg PO TID 02/16/25 03/14/25 History liraglutide 0.6 mg/0.1 mL (18 mg/3 1.2 mg subcut HS 02/16/25 03/14/25 History mL) subcutaneous pen injector loratadine 10 mg capsule (Allergy 10 mg PO DAILY PRN itching 02/16/25 03/14/25 History Relief (loratadine)) magnesium citrate (Citroma oral 296 ml PO .AM PRN constipation 02/16/25 03/14/25 History solution) magnesium hydroxide 400 mg/5 mL 30 ml PO HS PRN constipation 02/16/25 03/14/25 History oral suspension (Milk of Magnesia) sodium phosphates 19 gram-7 118 ml RECTAL DAILY PRN 02/16/25 03/14/25 History gram/118 mL enema (Fleet Enema) constipation vitamin B complex 1 cap PO DAILY 02/16/25 03/14/25 History acetaminophen 325 mg tablet 650 mg PO TID 03/10/25 03/14/25 History baclofen 5 mg tablet 5 mg PO TID 03/10/25 03/14/25 History cyclobenzaprine 10 mg tablet 10 mg PO Q8H PRN muscle spasm 03/10/25 03/14/25 History ipratropium 20 mcg-albuterol 100 1 puff inhalation Q6H PRN 03/10/25 03/14/25 History mcg/actuation mist for inhalation shortness of breath or wheezing (Combivent Respimat) loperamide 2 mg capsule 2 mg PO Q4H PRN loose stool 03/10/25 03/14/25 History losartan 100 mg tablet 100 mg PO DAILY PRN blood pressure 03/10/25 03/14/25 History melatonin 3 mg tablet 3 mg PO HS 03/10/25 03/14/25 History tramadol 50 mg tablet 50 mg PO BID 03/10/25 03/14/25 History umeclidinium 62.5 mcg/actuation 1 inh inhalation DAILY 03/10/25 03/14/25 History blister powder for inhalation (Incruse Ellipta) sevelamer carbonate 0.8 gram oral 0.8 g PO TIDWM 03/14/25 03/14/25 History powder packet Allergies Allergy/AdvReac Type Severity Reaction Status Date / Time No Known Allergies Allergy Verified 03/10/25 07:55 Vital Signs Vital Signs - 24 hr 03/14/25 20:00 03/14/25 20:00 03/14/25 20:06 Temperature Pulse Rate 77 82 Respiratory Rate 18 Blood Pressure Pulse Oximetry 95 Oxygen Delivery Room Air Room Air Fraction of Inspired Oxygen 21 03/14/25 20:06 03/14/25 20:15 03/14/25 20:37 Temperature 97.8 F Pulse Rate 82 88 77 Respiratory Rate 18 18 14 Blood Pressure 146/52 H Pulse Oximetry 93 Oxygen Delivery Fraction of Inspired Oxygen 03/14/25 23:00 03/15/25 00:00 03/15/25 02:24 Temperature Pulse Rate 77 72 63 Respiratory Rate 14 Blood Pressure Pulse Oximetry 93 97 Oxygen Delivery BiPAP BiPAP Fraction of Inspired Oxygen 03/15/25 02:24 03/15/25 04:00 03/15/25 05:50 Temperature 98.2 F Pulse Rate 63 61 69 Respiratory Rate 14 17 Blood Pressure 142/76 H Pulse Oximetry 100 Oxygen Delivery Fraction of Inspired Oxygen 03/15/25 07:35 03/15/25 07:35 03/15/25 07:40 Temperature Pulse Rate 78 72 Respiratory Rate 16 16 Blood Pressure Pulse Oximetry 96 Oxygen Delivery Room Air Fraction of Inspired Oxygen 03/15/25 08:00 03/15/25 08:00 03/15/25 08:38 Temperature Pulse Rate 63 70 Respiratory Rate Blood Pressure Pulse Oximetry 96 Oxygen Delivery Room Air Fraction of Inspired Oxygen 03/15/25 11:26 03/15/25 12:00 03/15/25 13:22 Temperature Pulse Rate 55 L Respiratory Rate Blood Pressure 127/40 L Pulse Oximetry Oxygen Delivery Room Air Fraction of Inspired Oxygen 03/15/25 13:46 03/15/25 13:46 03/15/25 13:52 Temperature Pulse Rate 58 L 55 L Respiratory Rate 16 16 Blood Pressure Pulse Oximetry 99 Oxygen Delivery Room Air Fraction of Inspired Oxygen 21 03/15/25 14:00 03/15/25 16:00 Temperature 97.0 F L Pulse Rate 63 73 Respiratory Rate 14 Blood Pressure 148/58 H Pulse Oximetry 98 Oxygen Delivery Fraction of Inspired Oxygen Exam Narrative: Patient is drowsy. Extraocular movements appear intact although he complains of diplopia. No facial asymmetry. Motor system normal power in both upper lower limbs and this of course was done while trying my best to keep him alert. Deep tendon reflexes did not show any significant asymmetry. No involuntary movements are seen. The nursing staff told me that sometimes he has involuntary movements of his upper limbs. 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 He is said to more alert than yesterday. He does not have any aphasia or dysarthria had does seem to commands when his briefly awake. Results Labs 03/15/25 06:52 03/15/25 06:52 Labs: Short CBC 03/15/25 Range/Units 06:52 WBC 5.2 (4.5-10.0) K/mm3 Hgb 9.9 L (14.0-18.0) g/dL Hct 34.2 L (42.0-52.0) % Plt Count 195 (150-375) k/mm3 BMP 03/15/25 06:52 Sodium 139 Potassium 3.7 Chloride 104 Carbon Dioxide 29 BUN 23 H D Creatinine 4.21 H Glucose 85 Calcium 10.1 Liver Function 03/15/25 Range/Units 06:52 Total Bilirubin 0.3 (0.2-1.3) mg/dL AST 14 L (17-59) U/L ALT 10 (6-50) U/L Alkaline Phosphatase 51 (38-126) U/L Albumin 3.4 L (3.5-5.1) g/dL
[2025-03-15 16:51] LABS: Glucose Point of Care 89 mg/dl (65-105)
[2025-03-15 20:10] LABS: Glucose Point of Care 92 mg/dl (65-105)
[2025-03-16] VITALS (19 sets, daily range): BP systolic 145–166; BP diastolic 75–88; PULSE 58–89; RESP 16–20; TEMP 36.3–37.1; O2SAT 92–99
[2025-03-16] MEDS: LEVALBUTEROL NEB 1.25 MG/3 ML 0.63 MG INHALATION ×4 (02:27→21:07)
--- NOTE | 2025-03-16 06:58 | PCSTNOTE ---
ST attempted to schedule MBS on 03/16, however radiology reports there is no radiologist on site. Will complete 03/17.
[2025-03-16] MEDS: UMECLIDINIUM BROMIDE 62.5 MCG ELLIPTA 1 PUFF INHALATION (07:13)
[2025-03-16 07:37] LABS: Glucose Point of Care 88 mg/dl (65-105)
[2025-03-16] MEDS: SODIUM CHLORIDE 0.9% IV 1,000 ML 100 ML IV CONT (08:53)
[2025-03-16] MEDS: MORPHINE SULFATE (*CRX) 2 MG/ML INJ 1 MG IV PUSH ×2 (10:35→17:13)
[2025-03-16 11:55] LABS: Glucose Point of Care 77 mg/dl (65-105)
--- NOTE | 2025-03-16 12:40 | PM.PNNEP ---
Progress Note: A&P Assessment and Plan (1) End stage renal disease: Code(s): N18.6 - End stage renal disease Status: Chronic Assessment and Plan: HD tomorrow continue T/T/S outpatient dialysis schedule while hospitalized follow electrolytes, volume status, and clearance (2) Altered mental status: Code(s): R41.82 - Altered mental status, unspecified Status: Acute Assessment and Plan: significant improvement noted if not resolved as noted on presentation to ER/hospital evaluation noted so far: ABG with acidosis and mild CO2 retention (improvement noted with BiPAP) CT of head without acute pathology UA with possible/questionable infection normal WBC medication related (pain meds, baclofen, flexiril, gabapentin...etc) hypercalcemia -- however, calcium level has been higher in the past without any neurological issues) other(?) improvement with BiPAP therapy noted Pulmonary consulted for further assessment hold sedating medications (would not restart baclofen) follow trend of mentation (3) Volume overload: Code(s): E87.70 - Fluid overload, unspecified Status: Acute Assessment and Plan: as noted by admission CXR findings however, relatively mild in comparison to previous admissions fluid/ultrafiltration with dialysis to maintain euvolemia in the past, this has been complicated by his COPD/reactive airway disease (4) Atrial fibrillation: Code(s): I48.91 - Unspecified atrial fibrillation Status: Chronic Assessment and Plan: rate control strategy restarted anticoagulation (Eliquis) last hospitalization apparently previously held due to issues with GI bleeding (5) Hypercalcemia: Code(s): E83.52 - Hypercalcemia Status: Chronic Assessment and Plan: doing better noted on last couple of hospitalizations as well not clear on etiology sensipar/cinacalcet usually causes hypocalcemia possibly due to prolonged immobilization/bed bound state? adjusting calcium bath with dialysis to compensate (6) Anemia: Code(s): D64.9 - Anemia, unspecified Status: Chronic Assessment and Plan: due to ESRD Epogen with HD follow trend of H/H (7) Essential (primary) hypertension: Code(s): I10 - Essential (primary) hypertension Status: Chronic Assessment and Plan: reasonable control fluid removal with HD helps to some degree resume home medications follow trend of hemodynamics (8) IDDM (insulin dependent diabetes mellitus): Status: Chronic Assessment and Plan: follow accu-cheks glycemic control per hospitalist Will continue to follow. Subjective Date/time seen: 03/16/25 12:40 Interval history: Follow-up for end stage renal disease on hemodialysis. Appears to be doing reasonably well at the time of my visit; stable mentation noted at this time with ongoing use of BiPAP therapy at night; no apparent distress noted when seen; no new issues/events overnight or earlier this morning. Exam Narrative: General: elderly WD/WN male in NAD Heart: normal S1 and S2; no rub Lungs: coarse breath sounds at bases Abdomen: soft, nontender, nondistended, positive bowel sounds Extremities: no cyanosis or clubbing; trace edema Skin: warm and intact Objective Data Vital Signs Vital Signs: Vital Signs Temp Pulse Resp BP Pulse Ox O2 Del Method 03/16/25 12:00 97.4 F L 80 18 160/88 H 93 03/16/25 09:00 Room Air 03/16/25 08:00 75 03/16/25 07:28 74 20 03/16/25 07:14 67 20 03/16/25 07:14 92 Room Air 03/16/25 04:18 98.7 F 72 18 166/88 H 99 03/16/25 03:54 70 03/16/25 02:37 58 L 16 03/16/25 02:29 68 16 96 BiPAP 03/16/25 02:29 60 16 03/16/25 01:07 66 17 97 BiPAP 03/15/25 23:13 66 03/15/25 20:18 62 16 03/15/25 20:10 97 Room Air 03/15/25 20:07 60 16 03/15/25 20:02 97.6 F 78 16 174/72 H 94 03/15/25 20:00 64 Intake/Output Intake/Output: Intake & Output 03/13/25 03/14/25 03/15/25 03/16/25 23:59 23:59 23:59 23:59 Intake Total 360 400 Output Total 2750 0 Balance -2390 400 0 Meds/Results Medications: Active Medications Generic Name Dose Route Start Last Admin Trade Name Freq PRN Reason Stop Dose Admin Acetaminophen 650 mg 03/14/25 17:00 03/16/25 15:55 Acetaminophen 325 Mg Tablet PO Not Given TID [facility] Acetaminophen 650 mg 03/14/25 14:27 Acetaminophen 325 Mg Tablet PO Q4H PRN Mild Pain (1-3) Or Fever Amlodipine Besylate 10 mg 03/14/25 14:40 03/16/25 08:42 Amlodipine Besylate 10 Mg Tablet PO Not Given DAILY [facility] Aspirin 81 mg 03/14/25 14:40 03/16/25 08:43 Aspirin 81 Mg Enteric Tablet PO Not Given DAILY [facility] Atorvastatin Calcium 20 mg 03/14/25 21:00 03/15/25 20:07 Atorvastatin 20 Mg Tablet PO Not Given HS DAVID Baclofen 5 mg 03/14/25 17:00 03/16/25 15:55 Baclofen 5 Mg Tablet PO Not Given TID [facility] Bisacodyl 10 mg 03/14/25 14:27 Bisacodyl 10 Mg Suppository RECTAL DAILY PRN constipation Carvedilol 25 mg 03/14/25 21:00 03/16/25 08:43 Carvedilol 25 Mg Tablet PO Not Given Q12HR [facility] Cinacalcet 90 mg 03/14/25 14:40 03/16/25 08:43 Cinacalcet 30 Mg Tablet PO Not Given DAILY [facility] Cyclobenzaprine HCl 10 mg 03/14/25 14:27 03/16/25 00:00 Cyclobenzaprine Hcl 10 Mg Tablet PO 10 mg Q8H PRN Administration muscle spasm Dextrose 12.5 gm 03/16/25 08:39 Dextrose 50% 25 Gm/50 Ml Syringe IV PUSH PRN PRN Hypoglycemia Protocol Finasteride 5 mg 03/14/25 14:40 03/16/25 08:43 Finasteride 5 Mg Tablet PO Not Given QAM [facility] Furosemide 80 mg 03/14/25 17:00 03/16/25 08:43 Furosemide 80 Mg Tablet PO Not Given BID [facility] Gabapentin 100 mg 03/14/25 17:00 03/16/25 15:55 Gabapentin 100 Mg Capsule PO Not Given TID [facility] Glucagon 1 mg 03/16/25 08:39 Glucagon For Inj 1 Mg Vial IM PRN PRN Hypoglycemia Protocol Glucose 15 gm 03/16/25 08:39 Glucose Oral Gel 15 Gm Of Glucse In 37.5 Gm Tube PO PRN PRN Hypoglycemia Protocol Albumin Human 50 mls @ 999 mls/hr 03/14/25 09:25 Albutein IVPB 04/13/25 09:24 Q10M PRN HYPOTENSION Dextrose 1,000 mls @ 100 mls/hr 03/16/25 08:39 Dextrose 5% 1,000 Ml IVPB PRN PRN Hypoglycemia Protocol Dextrose/Sodium Chloride 1,000 mls @ 100 mls/hr 03/16/25 15:20 Dextrose 5% Sodium Chloride 0.9% IV CONT .Q10H [facility] Insulin Aspart 4 units 03/14/25 17:00 03/16/25 08:42 Insulin Aspart (*Bkc) 100 Units/Ml SUB-Q Not Given ACINSULIN [facility] Insulin Aspart 2 - 5 units 03/16/25 12:00 03/16/25 11:52 Insulin Aspart (*Bkc) 100 Units/Ml SUB-Q Not Given Q6H [facility] Protocol Insulin Glargine 6 units 03/14/25 21:00 03/15/25 20:00 Insulin Glargine (*Bkc) 100 Units/Ml SUB-Q Not Given HS DAVID Levalbuterol HCl 0.63 mg 03/14/25 20:00 03/16/25 14:37 Levalbuterol Neb 1.25 Mg/3 Ml INHALATION 0.63 mg Q6HRT DAVID Administration Loperamide HCl 2 mg 03/14/25 14:27 Loperamide Hcl 2 Mg Capsule PO Q4H PRN loose stool Loratadine 10 mg 03/14/25 14:50 03/16/25 08:43 Loratadine 10 Mg Tablet PO Not Given DAILY DAVID Loratadine 10 mg 03/14/25 14:27 Loratadine 10 Mg Tablet PO DAILY PRN itching Losartan Potassium 100 mg 03/14/25 16:09 Losartan Potassium 100 Mg Tablet PO DAILY PRN blood pressure Magnesium Citrate 296 ml 03/14/25 14:27 Magnesium Citrate 300 Ml Btl PO QAM PRN constipation Magnesium Hydroxide 30 ml 03/14/25 14:27 Magnesium Hydroxide Susp 30 Ml Udc PO HS PRN constipation Melatonin 3 mg 03/14/25 21:00 03/15/25 20:07 Melatonin 3 Mg Tablet PO Not Given HS [facility] Miscellaneous Information 1 each 03/15/25 00:01 03/16/25 07:33 Liraglutide Is Nonform; Can Pt Use From Home? XX 04/14/25 00:00 Not Given CLARIFY DAVID Morphine Sulfate 1 mg 03/16/25 15:17 Morphine Sulfate (*Crx) 2 Mg/Ml Inj IV PUSH Q8H PRN pain 4-10 while npo Non-Formulary Medication 1.2 mg 03/14/25 21:00 Liraglutide SUB-Q 04/13/25 20:59 HS [facility] Pentoxifylline 400 mg 03/14/25 18:00 03/15/25 16:52 Pentoxifylline 400 Mg Tabcr PO Not Given QPM [facility] Sevelamer Carbonate 0.8 gm 03/14/25 17:00 03/16/25 15:55 Sevelamer Carbonate 0.8 Gm Oral Powder Packet PO Not Given TIDWM [facility] Tamsulosin HCl 0.4 mg 03/14/25 21:00 03/15/25 20:07 Tamsulosin Hcl 0.4 Mg Capsule PO Not Given QHS [facility] Tramadol HCl 50 mg 03/14/25 17:00 03/16/25 08:43 Tramadol Hcl (*Crx) 50 Mg Tablet PO Not Given BID [facility] Umeclidinium [place] 1 puff 03/15/25 08:00 03/16/25 07:13 Umeclidinium [place] 62.5 Mcg Ellipta INHALATION 1 puff DAILYRT [facility] Administration Vitamin B Complex 1 cap 03/14/25 14:50 03/16/25 08:43 Vitamin B Complex Capsule PO Not Given DAILY [facility] Radiology Results: ITS Impressions Head CT 03/14/25 07:24 IMPRESSION: 1. 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 No acute intracranial process. 2. Age-related changes including moderate diffuse volume loss and moderate scattered white matter hypoattenuation consistent with chronic small vessel ischemic disease. 3. Sinus disease. Chest X-Ray 03/14/25 07:59 IMPRESSION: 1. Pulmonary vascular congestion with no other acute cardiopulmonary disease. Labs Labs: Laboratory Tests 03/15/25 06:52 03/15/25 06:52 Microbiology 03/14/25 09:00 Urine Catheterized Urine Culture Reflexed - Final [place] albicans 03/14/25 20:35 Blood Blood Culture - Preliminary 03/14/25 20:33 Blood Blood Culture - Preliminary
--- NOTE | 2025-03-16 14:14 | PM.IMPN ---
Progress Note: A&P Assessment and Plan (1) Acute exacerbation of CHF (congestive heart failure): Qualifiers: Heart failure type: unspecified Qualified Code(s): I50.9 - Heart failure, unspecified Code(s): I50.9 - Heart failure, unspecified Status: Acute (2) Atrial fibrillation: Code(s): I48.91 - Unspecified atrial fibrillation Status: Chronic (3) Peripheral vascular disease: Onset Date: ~03/2023 Code(s): I73.9 - Peripheral vascular disease, unspecified Status: Acute (4) Hypercapnia: Code(s): R06.89 - Other abnormalities of breathing Status: Acute Plan Patient is 79 y/o male with history of ESRD on HD has recurrent symptoms of weakness and blurry vision and get better after dialysis however today patient was quite somnolent upon arrival, ABG in the showed hypercapnia and patient was placed on BIPAP, this really helped patient mentation and repeat ABG showed improvement pCO2. most likely patient symptoms are stemming from hypercapnia, placed patient BIPAP at bedtime and during the day as needed, will consult extension work instructor as patient will need CPAP or BIPAP and night time [place] link. patient will be seen by his home appliances mechanic and further recommendation to follow. patient did pino BIPAP last night and feels much better more alert, and energetic, he has some cough with swallowing will have speech pathologist evaluate the patient and recommended NPO and he will MBS tomorrow. will have apnea link tonight to possible get CPAP for home. Subjective Date/time seen: 03/16/25 14:14 Interval history: Patient is 79 y/o male with history of ESRD on HD has recurrent symptoms of weakness and blurry vision and get better after dialysis however today patient was quite somnolent upon arrival, ABG in the showed hypercapnia and patient was placed on BIPAP, this really helped patient mentation and repeat ABG showed improvement pCO2. most likely patient symptoms are stemming from hypercapnia, placed patient BIPAP at bedtime and during the day as needed, will consult extension work instructor as patient will need CPAP or BIPAP and night time [place] link. patient will be seen by his home appliances mechanic and further recommendation to follow. patient did pino BIPAP last night and feels much better more alert, and energetic, he has some cough with swallowing will have speech pathologist evaluate the patient and recommended NPO and he will MBS tomorrow. will have apnea link tonight to possible get CPAP for home. Review of Systems Review of Systems: As per HPI. Exam Narrative: Patient is comfortable, NAD HEENT: eyes are clear and none icteric LUNGS:CTA HEART: RR S1S2 ABD: BS+, Soft and nontender Lower extremities: no edema SKIN: nonjaundiced Neuro: grossly intact. Objective Data Vital Signs Vital Signs: Vital Signs - 24 hr 03/15/25 16:00 03/15/25 20:00 03/15/25 20:02 Temperature 36.4 C Pulse Rate 73 64 78 Respiratory Rate 16 Blood Pressure 174/72 H Pulse Oximetry 94 Oxygen Delivery 03/15/25 20:07 03/15/25 20:10 03/15/25 20:18 Temperature Pulse Rate 60 62 Respiratory Rate 16 16 Blood Pressure Pulse Oximetry 97 Oxygen Delivery Room Air 03/15/25 23:13 03/16/25 01:07 03/16/25 02:29 Temperature Pulse Rate 66 66 60 Respiratory Rate 17 16 Blood Pressure Pulse Oximetry 97 Oxygen Delivery BiPAP 03/16/25 02:29 03/16/25 02:37 03/16/25 03:54 Temperature Pulse Rate 68 58 L 70 Respiratory Rate 16 16 Blood Pressure Pulse Oximetry 96 Oxygen Delivery BiPAP 03/16/25 04:18 03/16/25 07:14 03/16/25 07:14 Temperature 37.1 C Pulse Rate 72 67 Respiratory Rate 18 20 Blood Pressure 166/88 H Pulse Oximetry 99 92 Oxygen Delivery Room Air 03/16/25 07:28 Temperature Pulse Rate 74 Respiratory Rate 20 Blood Pressure Pulse Oximetry Oxygen Delivery Intake/Output Intake/Output: Intake & Output 03/13/25 03/14/25 03/15/25 03/16/25 23:59 23:59 23:59 23:59 Intake Total 360 400 Output Total 2750 0 Balance -2390 400 0 Meds/Results Medications: Active Medications Generic Name Dose Route Start Last Admin Trade Name Freq PRN Reason Stop Dose Admin Acetaminophen 650 mg 03/14/25 17:00 03/16/25 08:42 Acetaminophen 325 Mg Tablet PO Not Given TID [facility] Acetaminophen 650 mg 03/14/25 14:27 Acetaminophen 325 Mg Tablet PO Q4H PRN Mild Pain (1-3) Or Fever Amlodipine Besylate 10 mg 03/14/25 14:40 03/16/25 08:42 Amlodipine Besylate 10 Mg Tablet PO Not Given DAILY [facility] Aspirin 81 mg 03/14/25 14:40 03/16/25 08:43 Aspirin 81 Mg Enteric Tablet PO Not Given DAILY [facility] Atorvastatin Calcium 20 mg 03/14/25 21:00 03/15/25 20:07 Atorvastatin 20 Mg Tablet PO Not Given HS DAVID Baclofen 5 mg 03/14/25 17:00 03/16/25 08:43 Baclofen 5 Mg Tablet PO Not Given TID [facility] Bisacodyl 10 mg 03/14/25 14:27 Bisacodyl 10 Mg Suppository RECTAL DAILY PRN constipation Carvedilol 25 mg 03/14/25 21:00 03/16/25 08:43 Carvedilol 25 Mg Tablet PO Not Given Q12HR [facility] Cinacalcet 90 mg 03/14/25 14:40 03/16/25 08:43 Cinacalcet 30 Mg Tablet PO Not Given DAILY [facility] Cyclobenzaprine HCl 10 mg 03/14/25 14:27 03/16/25 00:00 Cyclobenzaprine Hcl 10 Mg Tablet PO 10 mg Q8H PRN Administration muscle spasm Dextrose 12.5 gm 03/16/25 08:39 Dextrose 50% 25 Gm/50 Ml Syringe IV PUSH PRN PRN Hypoglycemia Protocol Finasteride 5 mg 03/14/25 14:40 03/16/25 08:43 Finasteride 5 Mg Tablet PO Not Given QAM [facility] Furosemide 80 mg 03/14/25 17:00 03/16/25 08:43 Furosemide 80 Mg Tablet PO Not Given BID [facility] Gabapentin 100 mg 03/14/25 17:00 03/16/25 08:43 Gabapentin 100 Mg Capsule PO Not Given TID [facility] Glucagon 1 mg 03/16/25 08:39 Glucagon For Inj 1 Mg Vial IM PRN PRN Hypoglycemia Protocol Glucose 15 gm 03/16/25 08:39 Glucose Oral Gel 15 Gm Of Glucse In 37.5 Gm Tube PO PRN PRN Hypoglycemia Protocol Albumin Human 50 mls @ 999 mls/hr 03/14/25 09:25 Albutein IVPB 04/13/25 09:24 Q10M PRN HYPOTENSION Sodium Chloride 1,000 mls @ 100 mls/hr 03/16/25 08:25 03/16/25 08:53 Normal Saline Iv IV CONT 100 mls/hr .Q10H [facility]ID Administration Dextrose 1,000 mls @ 100 mls/hr 03/16/25 08:39 Dextrose 5% 1,000 Ml IVPB PRN PRN Hypoglycemia Protocol Insulin Aspart 4 units 03/14/25 17:00 03/16/25 08:42 Insulin Aspart (*Bkc) 100 Units/Ml SUB-Q Not Given ACINSULIN [facility] Insulin Aspart 2 - 5 units 03/16/25 12:00 03/16/25 11:52 Insulin Aspart (*Bkc) 100 Units/Ml SUB-Q Not Given Q6H [facility] Protocol Insulin Glargine 6 units 03/14/25 21:00 03/15/25 20:00 Insulin Glargine (*Bkc) 100 Units/Ml SUB-Q Not Given HS [facility] Levalbuterol HCl 0.63 mg 03/14/25 20:00 03/16/25 07:13 Levalbuterol Neb 1.25 Mg/3 Ml INHALATION 0.63 mg Q6HRT [facility] Administration Loperamide HCl 2 mg 03/14/25 14:27 Loperamide Hcl 2 Mg Capsule PO Q4H PRN loose stool Loratadine 10 mg 03/14/25 14:50 03/16/25 08:43 Loratadine 10 Mg Tablet PO Not Given DAILY [facility] Loratadine 10 mg 03/14/25 14:27 Loratadine 10 Mg Tablet PO DAILY PRN itching Losartan Potassium 100 mg 03/14/25 16:09 Losartan Potassium 100 Mg Tablet PO DAILY PRN blood pressure Magnesium Citrate 296 ml 03/14/25 14:27 Magnesium Citrate 300 Ml Btl PO QAM PRN constipation Magnesium Hydroxide 30 ml 03/14/25 14:27 Magnesium Hydroxide Susp 30 Ml Udc PO HS PRN constipation Melatonin 3 mg 03/14/25 21:00 03/15/25 20:07 Melatonin 3 Mg Tablet PO Not Given HS [facility] Miscellaneous Information 1 each 03/15/25 00:01 03/16/25 07:33 Liraglutide Is Nonform; Can Pt Use From Home? XX 04/14/25 00:00 Not Given CLARIFY [facility] Non-Formulary Medication 1.2 mg 03/14/25 21:00 Liraglutide SUB-Q 04/13/25 20:59 HS [facility] Pentoxifylline 400 mg 03/14/25 18:00 03/15/25 16:52 Pentoxifylline 400 Mg Tabcr PO Not Given QPM [facility] Sevelamer Carbonate 0.8 gm 03/14/25 17:00 03/16/25 08:42 Sevelamer Carbonate 0.8 Gm Oral Powder Packet PO Not Given TIDWM [facility] Tamsulosin HCl 0.4 mg 03/14/25 21:00 03/15/25 20:07 Tamsulosin Hcl 0.4 Mg Capsule PO Not Given QHS [facility] Tramadol HCl 50 mg 03/14/25 17:00 03/16/25 08:43 Tramadol Hcl (*Crx) 50 Mg Tablet PO Not Given BID [facility] Umeclidinium [place] 1 puff 03/15/25 08:00 03/16/25 07:13 Umeclidinium [place] 62.5 Mcg Ellipta INHALATION 1 puff DAILYRT [facility] Administration Vitamin B Complex 1 cap 03/14/25 14:50 03/16/25 08:43 Vitamin B Complex Capsule PO Not Given DAILY [facility] Radiology Results: ITS Impressions Head CT 03/14/25 07:24 IMPRESSION: 1. 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 No acute intracranial process. 2. Age-related changes including moderate diffuse volume loss and moderate scattered white matter hypoattenuation consistent with chronic small vessel ischemic disease. 3. Sinus disease. Chest X-Ray 03/14/25 07:59 IMPRESSION: 1. Pulmonary vascular congestion with no other acute cardiopulmonary disease. Labs Labs: Laboratory Results - last 24 hr 03/15/25 03/15/25 03/16/25 16:49 19:46 07:27 POC Capillary Glucose 89 92 88 03/16/25 11:52 POC Capillary Glucose 77
--- NOTE | 2025-03-16 15:43 | WPDNEUROPN ---
Progress Note: A&P Assessment and Plan (1) Altered mental status: Code(s): R41.82 - Altered mental status, unspecified Status: Acute (2) End-stage renal disease on hemodialysis: Code(s): N18.6 - End stage renal disease; Z99.2 - Dependence on renal dialysis Status: Acute (3) IDDM (insulin dependent diabetes mellitus): Status: Chronic (4) Seizure disorder: Code(s): G40.909 - Epilepsy, unspecified, not intractable, without status epilepticus Status: Acute (5) Left cervical radiculopathy: Code(s): M54.12 - Radiculopathy, cervical region Status: Acute (6) Obstructive sleep apnea: Code(s): G47.33 - Obstructive sleep apnea (adult) (pediatric) Status: Acute Plan I would advise that he should follow-up with [facility] to see if he will for from use of BiPAP since he had a CPAP at home that he could not use. That may help keep him alert. Of course refer her to dialysis also helps. With regard to the left arm weakness he can not have an EMG nerve can study of the left arm as an outpatient. He has a pacemaker and hence he cannot get a MRI but that can be arranged in [place] at a different hospital. I spoke to his daughter and made him aware of these recommendations. As such she does not appear to be demented but some follow-up in the office could be helpful and the family agrees with that. I have given my phone number to contact at Neurology office. Subjective Date/time seen: 03/16/25 15:43 Interval history: The patient is fairly alert and awake today. He has been using BiPAP for last 2 days. His daughter was present the time of the evaluation and she thought that although he has some memory problem but overall he is functioning fairly well for his age. The patient has does not use CPAP at home. However, he was given BiPAP that seems to have helped. His CO2 level also came down. Review of Systems Review of Systems: All systems reviewed & are unremarkable except as noted in HPI and below Exam Narrative: Fairly alert and oriented to self time place and person. Speech is fluent articulate. Exam head and neck was unremarkable. When asked to name the hospital and current whereabouts he did answer those. He is able to name 5 colors and 5 cities. During examination did not reveal any additional new findings. Objective Data Vital Signs Vital Signs: Vital Signs - 24 hr 03/15/25 16:00 03/15/25 20:00 03/15/25 20:02 Temperature 97.6 F Pulse Rate 73 64 78 Respiratory Rate 16 Blood Pressure 174/72 H Pulse Oximetry 94 Oxygen Delivery 03/15/25 20:07 03/15/25 20:10 03/15/25 20:18 Temperature Pulse Rate 60 62 Respiratory Rate 16 16 Blood Pressure Pulse Oximetry 97 Oxygen Delivery Room Air 03/15/25 23:13 03/16/25 01:07 03/16/25 02:29 Temperature Pulse Rate 66 66 60 Respiratory Rate 17 16 Blood Pressure Pulse Oximetry 97 Oxygen Delivery BiPAP 03/16/25 02:29 03/16/25 02:37 03/16/25 03:54 Temperature Pulse Rate 68 58 L 70 Respiratory Rate 16 16 Blood Pressure Pulse Oximetry 96 Oxygen Delivery BiPAP 03/16/25 04:18 03/16/25 07:14 03/16/25 07:14 Temperature 98.7 F Pulse Rate 72 67 Respiratory Rate 18 20 Blood Pressure 166/88 H Pulse Oximetry 99 92 Oxygen Delivery Room Air 03/16/25 07:28 03/16/25 14:00 03/16/25 14:45 Temperature 97.4 F L Pulse Rate 74 80 89 Respiratory Rate 20 18 20 Blood Pressure 160/88 H Pulse Oximetry 93 Oxygen Delivery 03/16/25 14:57 Temperature Pulse Rate 86 Respiratory Rate 20 Blood Pressure Pulse Oximetry Oxygen Delivery Intake/Output Intake/Output: Intake & Output 03/13/25 03/14/25 03/15/25 03/16/25 23:59 23:59 23:59 23:59 Intake Total 360 400 Output Total 2750 0 Balance -2390 400 0 Meds/Results Medications: Active Medications Generic Name Dose Route Start Last Admin Trade Name Freq PRN Reason Stop Dose Admin Acetaminophen 650 mg 03/14/25 17:00 03/16/25 08:42 Acetaminophen 325 Mg Tablet PO Not Given TID [facility] Acetaminophen 650 mg 03/14/25 14:27 Acetaminophen 325 Mg Tablet PO Q4H PRN Mild Pain (1-3) Or Fever Amlodipine Besylate 10 mg 03/14/25 14:40 03/16/25 08:42 Amlodipine Besylate 10 Mg Tablet PO Not Given DAILY [facility] Aspirin 81 mg 03/14/25 14:40 03/16/25 08:43 Aspirin 81 Mg Enteric Tablet PO Not Given DAILY [facility] Atorvastatin Calcium 20 mg 03/14/25 21:00 03/15/25 20:07 Atorvastatin 20 Mg Tablet PO Not Given HS [facility] Baclofen 5 mg 03/14/25 17:00 03/16/25 08:43 Baclofen 5 Mg Tablet PO Not Given TID [facility] Bisacodyl 10 mg 03/14/25 14:27 Bisacodyl 10 Mg Suppository RECTAL DAILY PRN constipation Carvedilol 25 mg 03/14/25 21:00 03/16/25 08:43 Carvedilol 25 Mg Tablet PO Not Given Q12HR [facility] Cinacalcet 90 mg 03/14/25 14:40 03/16/25 08:43 Cinacalcet 30 Mg Tablet PO Not Given DAILY [facility] Cyclobenzaprine HCl 10 mg 03/14/25 14:27 03/16/25 00:00 Cyclobenzaprine Hcl 10 Mg Tablet PO 10 mg Q8H PRN Administration muscle spasm Dextrose 12.5 gm 03/16/25 08:39 Dextrose 50% 25 Gm/50 Ml Syringe IV PUSH PRN PRN Hypoglycemia Protocol Finasteride 5 mg 03/14/25 14:40 03/16/25 08:43 Finasteride 5 Mg Tablet PO Not Given QAM [facility] Furosemide 80 mg 03/14/25 17:00 03/16/25 08:43 Furosemide 80 Mg Tablet PO Not Given BID [facility] Gabapentin 100 mg 03/14/25 17:00 03/16/25 08:43 Gabapentin 100 Mg Capsule PO Not Given TID [facility] Glucagon 1 mg 03/16/25 08:39 Glucagon For Inj 1 Mg Vial IM PRN PRN Hypoglycemia Protocol Glucose 15 gm 03/16/25 08:39 Glucose Oral Gel 15 Gm Of Glucse In 37.5 Gm Tube PO PRN PRN Hypoglycemia Protocol Albumin Human 50 mls @ 999 mls/hr 03/14/25 09:25 Albutein IVPB 04/13/25 09:24 Q10M PRN HYPOTENSION Dextrose 1,000 mls @ 100 mls/hr 03/16/25 08:39 Dextrose 5% 1,000 Ml IVPB PRN PRN Hypoglycemia Protocol Dextrose/Sodium Chloride 1,000 mls @ 100 mls/hr 03/16/25 15:20 Dextrose 5% Sodium Chloride 0.9% IV CONT .Q10H [facility] Insulin Aspart 4 units 03/14/25 17:00 03/16/25 08:42 Insulin Aspart (*Bkc) 100 Units/Ml SUB-Q Not Given ACINSULIN [facility] Insulin Aspart 2 - 5 units 03/16/25 12:00 03/16/25 11:52 Insulin Aspart (*Bkc) 100 Units/Ml SUB-Q Not Given Q6H [facility] Protocol Insulin Glargine 6 units 03/14/25 21:00 03/15/25 20:00 Insulin Glargine (*Bkc) 100 Units/Ml SUB-Q Not Given HS [facility] Levalbuterol HCl 0.63 mg 03/14/25 20:00 03/16/25 14:37 Levalbuterol Neb 1.25 Mg/3 Ml INHALATION 0.63 mg Q6HRT [facility] Administration Loperamide HCl 2 mg 03/14/25 14:27 Loperamide Hcl 2 Mg Capsule PO Q4H PRN loose stool Loratadine 10 mg 03/14/25 14:50 03/16/25 08:43 Loratadine 10 Mg Tablet PO Not Given DAILY [facility] Loratadine 10 mg 03/14/25 14:27 Loratadine 10 Mg Tablet PO DAILY PRN itching Losartan Potassium 100 mg 03/14/25 16:09 Losartan Potassium 100 Mg Tablet PO DAILY PRN blood pressure Magnesium Citrate 296 ml 03/14/25 14:27 Magnesium Citrate 300 Ml Btl PO QAM PRN constipation Magnesium Hydroxide 30 ml 03/14/25 14:27 Magnesium Hydroxide Susp 30 Ml Udc PO HS PRN constipation Melatonin 3 mg 03/14/25 21:00 03/15/25 20:07 Melatonin 3 Mg Tablet PO Not Given HS [facility] Miscellaneous Information 1 each 03/15/25 00:01 03/16/25 07:33 Liraglutide Is Nonform; Can Pt Use From Home? XX 04/14/25 00:00 Not Given CLARIFY [facility] Morphine Sulfate 1 mg 03/16/25 15:17 Morphine Sulfate (*Crx) 2 Mg/Ml Inj IV PUSH Q8H PRN pain 4-10 while npo Non-Formulary Medication 1.2 mg 03/14/25 21:00 Liraglutide SUB-Q 04/13/25 20:59 HS [facility] Pentoxifylline 400 mg 03/14/25 18:00 03/15/25 16:52 Pentoxifylline 400 Mg Tabcr PO Not Given QPM [facility] Sevelamer Carbonate 0.8 gm 03/14/25 17:00 03/16/25 08:42 Sevelamer Carbonate 0.8 Gm Oral Powder Packet PO Not Given TIDWM [facility] Tamsulosin HCl 0.4 mg 03/14/25 21:00 03/15/25 20:07 Tamsulosin Hcl 0.4 Mg Capsule PO Not Given QHS [facility] Tramadol HCl 50 mg 03/14/25 17:00 03/16/25 08:43 Tramadol Hcl (*Crx) 50 Mg Tablet PO Not Given BID [facility] Umeclidinium [place] 1 puff 03/15/25 08:00 03/16/25 07:13 Umeclidinium [place] 62.5 Mcg Ellipta INHALATION 1 puff DAILYRT [facility] Administration Vitamin B Complex 1 cap 03/14/25 14:50 03/16/25 08:43 Vitamin B Complex Capsule PO Not Given DAILY [facility] Radiology Results: ITS Impressions Head CT 03/14/25 07:24 IMPRESSION: 1. 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 No acute intracranial process. 2. Age-related changes including moderate diffuse volume loss and moderate scattered white matter hypoattenuation consistent with chronic small vessel ischemic disease. 3. Sinus disease. Chest X-Ray 03/14/25 07:59 IMPRESSION: 1. Pulmonary vascular congestion with no other acute cardiopulmonary disease. Labs Labs: Laboratory Results - last 24 hr 03/15/25 03/15/25 03/16/25 16:49 19:46 07:27 POC Capillary Glucose 89 92 88 03/16/25 11:52 POC Capillary Glucose 77
[2025-03-16 16:07] LABS: Glucose Point of Care 76 mg/dl (65-105)
[2025-03-16] MEDS: DEXTROSE 5%/0.9% SOD CHL 1,000 ML 100 ML IV CONT (17:11)
[2025-03-16 17:51] LABS: Glucose Point of Care 80 mg/dl (65-105)
[2025-03-16] MEDS: MELATONIN 3 MG TABLET PO (21:10)
[2025-03-16] MEDS: TAMSULOSIN HCL 0.4 MG CAPSULE PO (21:10)
[2025-03-16] MEDS: carvediloL 25 MG TABLET PO (21:10)
[2025-03-16] MEDS: CYCLOBENZAPRINE HCL 10 MG TABLET PO ×2 (21:10)
[2025-03-16] MEDS: ATORVASTATIN 20 MG TABLET PO (21:10)
[2025-03-17] VITALS (34 sets, daily range): BP systolic 126–171; BP diastolic 52–88; PULSE 51–80; RESP 14–20; TEMP 35.7–38; O2SAT 90–100
--- NOTE | 2025-03-17 03:09 | PCRCNOTE ---
Pt's 0200 updraft treatment held due to patient being on overnight study. Treatment to resume at 0800.
[2025-03-17] MEDS: DEXTROSE 5%/0.9% SOD CHL 1,000 ML 100 ML IV CONT (03:34)
[2025-03-17 06:17] LABS: Hematocrit 34.9 % (42.0-52.0); Mean Corpuscular HGB Conc 28.7 g/dl (32-36); Mean Corpuscular Hemoglobin 26.7 pg (26-34); Mean Corpuscular Volume 93.1 fl (80-100); Mean Platelet Volume 11.3 fl (7.4-10.4); Platelet Count Result 206 k/mm3 (150-375); Red Blood Count 3.75 M/mm3 (4.6-6.20); Red Cell Distribution Width 18.3 % (11.5-14.5); White Blood Count 4.7 K/mm3 (4.5-10.0)
[2025-03-17 06:42] LABS: Anion Gap 10 mmol/L (4-12); Blood Urea Nitrogen 42 mg/dL (9-20); Calcium 10.7 mg/dL (8.4-10.2); Carbon Dioxide 25 mmol/L (22-30); Chloride 103 mmol/L (98-107); Estimated CRCL calculation 8 ml/min; Estimated Glomerular Filt Rate 8; Glucose 96 mg/dL (65-110); Magnesium 2.5 mg/dL (1.6-2.3); Potassium 4.2 mmol/L (3.4-5.0); Sodium 138 mmol/L (137-145)
[2025-03-17 06:46] LABS: Glucose Point of Care 104 mg/dl (65-105)
[2025-03-17] MEDS: LEVALBUTEROL NEB 1.25 MG/3 ML 0.63 MG INHALATION ×3 (07:36→20:00)
[2025-03-17] MEDS: UMECLIDINIUM BROMIDE 62.5 MCG ELLIPTA 1 PUFF INHALATION (07:37)
--- NOTE | 2025-03-17 08:11 | P.CDI_ITS ---
CDI Query Clarification Request Please specify type of heart failure if known. * Systolic * Diastolic * Combined Systolic and Diastolic * Unknown The medical chart reflects the following: (1) Acute exacerbation of CHF (congestive heart failure): Qualifiers: Heart failure type: unspecified Qualified Code(s): I50.9 - Heart failure, unspecified Code(s): I50.9 - Heart failure, unspecified Status: Acute <Rosie Richard RN - Last Filed: 03/17/25 08:13> Clarified Diagnosis Clarified Diagnosis: patient with normal LV function with EF of 60-65% and indeterminant diastolic function unable to determine type of CHF <Gregorio Siegel MD - Last Filed: 03/26/25 17:40>
--- NOTE | 2025-03-17 08:41 | PCOTNOTE ---
Attempted to see Patient at this time. Patient out of the room, in dialysis.
--- NOTE | 2025-03-17 09:38 | PCPTNOTE ---
The patient treatment was not able to be completed at this time due to patient out of room for dialysis. Will plan to continue treatment per plan of care.
[2025-03-17] MEDS: traMADol HCL (*CRX) 50 MG TABLET PO ×2 (09:59→17:09)
--- NOTE | 2025-03-17 10:20 | P.PNNP_ITS ---
Progress Note: A&P Assessment and Plan (1) End stage renal disease: Code(s): N18.6 - End stage renal disease Status: Chronic Assessment and Plan: * HD today * continue T/T/S outpatient dialysis schedule while hospitalized * follow electrolytes, volume status, and clearance (2) Altered mental status: Code(s): R41.82 - Altered mental status, unspecified Status: Acute Assessment and Plan: * significant improvement noted if not resolved * as noted on presentation to ER/hospital * evaluation noted so far: * ABG with acidosis and mild CO2 retention (improvement noted with BiPAP) * CT of head without acute pathology * UA with possible/questionable infection * normal WBC * medication related (pain meds, baclofen, flexiril, gabapentin...etc) * hypercalcemia -- however, calcium level has been higher in the past without any neurological issues) * other(?) * improvement with BiPAP therapy noted * Pulmonary consulted for further assessment * hold sedating medications (would not restart baclofen) * follow trend of mentation (3) Volume overload: Code(s): E87.70 - Fluid overload, unspecified Status: Acute Assessment and Plan: * as noted by admission CXR findings * however, relatively mild in comparison to previous admissions * fluid/ultrafiltration with dialysis to maintain euvolemia * in the past, this has been complicated by his COPD/reactive airway disease (4) Atrial fibrillation: Code(s): I48.91 - Unspecified atrial fibrillation Status: Chronic Assessment and Plan: * rate control strategy * restarted anticoagulation (Eliquis) last hospitalization * apparently previously held due to issues with GI bleeding (5) Hypercalcemia: Code(s): E83.52 - Hypercalcemia Status: Chronic Assessment and Plan: * doing better * noted on last couple of hospitalizations as well * not clear on etiology * sensipar/cinacalcet usually causes hypocalcemia * possibly due to prolonged immobilization/bed bound state? * adjusting calcium bath with dialysis to compensate (6) Anemia: Code(s): D64.9 - Anemia, unspecified Status: Chronic Assessment and Plan: * due to ESRD * Epogen with HD * follow trend of H/H (7) Essential (primary) hypertension: Code(s): I10 - Essential (primary) hypertension Status: Chronic Assessment and Plan: * reasonable control * fluid removal with HD helps to some degree * resume home medications * follow trend of hemodynamics (8) IDDM (insulin dependent diabetes mellitus): Status: Chronic Assessment and Plan: * follow accu-cheks * glycemic control per hospitalist Will continue to follow. L Subjective Date/time seen: 03/17/25 9:31 Interval history: Follow-up for end stage renal disease on hemodialysis. Tolerating dialysis treatment at the time of my visit (seen on HD at 9:20AM); no apparent distress voiced when seen; no issues/events overnight or earlier this morning; overall, he states he feels pretty good. Exam 2 Narrative: General: elderly WD/WN male in NAD Heart: normal S1 and S2; no rub Lungs: coarse breath sounds at bases Abdomen: soft, nontender, nondistended, positive bowel sounds Extremities: no cyanosis or clubbing; trace edema Skin: no rash Objective Data Vital Signs Vital Signs: Vital Signs Temp Pulse Resp BP Pulse Ox O2 Del Method O2 Flow Rate 03/17/25 09:30 66 152/77 H 03/17/25 09:15 65 136/60 03/17/25 09:00 63 171/84 H 03/17/25 08:54 2 03/17/25 08:54 61 164/88 H 03/17/25 08:38 96.3 F L 60 16 161/80 H 100 03/17/25 08:00 65 03/17/25 08:00 98 Room Air 03/17/25 07:49 59 L 14 03/17/25 07:40 58 L 14 98 Nasal Cannula 2 03/17/25 07:38 58 L 14 03/17/25 05:00 97.1 F L 57 L 20 161/52 H 100 03/17/25 04:00 59 L 03/17/25 00:00 64 03/16/25 22:40 96 Nasal Cannula 2 03/16/25 21:17 83 20 03/16/25 21:16 92 Room Air 03/16/25 21:07 79 20 03/16/25 20:53 98.3 F 73 18 145/75 H 92 03/16/25 20:00 83 03/16/25 20:00 83 20 92 Room Air 03/16/25 16:00 83 03/16/25 14:57 86 20 03/16/25 14:45 89 20 03/16/25 14:00 97.4 F L 80 18 160/88 H 93 Intake/Output Intake/Output: Intake & Output 03/14/25 03/15/25 03/16/25 03/17/25 23:59 23:59 23:59 23:59 Intake Total 283 450 4426 Output Total 2750 0 0 Balance -2390 400 0 1000 Meds/Results Medications: Active Medications Generic Name Dose Route Start Last Admin Trade Name [place] PRN Reason Stop Dose Admin Acetaminophen 650 mg 03/14/25 17:00 03/17/25 09:44 Acetaminophen 325 Mg Tablet PO Not Given TID DAVID Acetaminophen 650 mg 03/14/25 14:27 Acetaminophen 325 Mg Tablet PO Q4H PRN Mild Pain (1-3) Or Fever Amlodipine Besylate 10 mg 03/14/25 14:40 03/16/25 08:42 Amlodipine Besylate 10 Mg Tablet PO Not Given DAILY [facility] Aspirin 81 mg 03/14/25 14:40 03/16/25 08:43 Aspirin 81 Mg Enteric Tablet PO Not Given DAILY [facility] Atorvastatin Calcium 20 mg 03/14/25 21:00 03/16/25 21:10 Atorvastatin 20 Mg Tablet PO 20 mg HS DAVID Administration Baclofen 5 mg 03/14/25 17:00 03/17/25 09:44 Baclofen 5 Mg Tablet PO Not Given TID DAVID Bisacodyl 10 mg 03/14/25 14:27 Bisacodyl 10 Mg Suppository RECTAL DAILY PRN constipation Carvedilol 25 mg 03/14/25 21:00 03/16/25 21:10 Carvedilol 25 Mg Tablet PO 25 mg Q12HR DAVID Administration Cinacalcet 90 mg 03/14/25 14:40 03/16/25 08:43 Cinacalcet 30 Mg Tablet PO Not Given DAILY [facility] Cyclobenzaprine HCl 10 mg 03/14/25 14:27 03/16/25 21:10 Cyclobenzaprine Hcl 10 Mg Tablet PO 10 mg Q8H PRN Administration muscle spasm Dextrose 12.5 gm 03/16/25 08:39 Dextrose 50% 25 Gm/50 Ml Syringe IV PUSH PRN PRN Hypoglycemia Protocol Epoetin David-epbx 4,000 units 03/17/25 19:26 03/17/25 11:37 Epoetin David-Epbx 4,000 Units/Ml Vial IV PUSH 05/27/25 19:27 4,000 units ONCE ONE Administration Finasteride 5 mg 03/14/25 14:40 03/16/25 08:43 Finasteride 5 Mg Tablet PO Not Given QAM DAVID Furosemide 80 mg 03/14/25 17:00 03/16/25 17:19 Furosemide 80 Mg Tablet PO Not Given BID DAVID Gabapentin 100 mg 03/14/25 17:00 03/17/25 09:44 Gabapentin 100 Mg Capsule PO Not Given TID DAVID Glucagon 1 mg 03/16/25 08:39 Glucagon For Inj 1 Mg Vial IM PRN PRN Hypoglycemia Protocol Glucose 15 gm 03/16/25 08:39 Glucose Oral Gel 15 Gm Of Glucse In 37.5 Gm Tube PO PRN PRN Hypoglycemia Protocol Albumin Human 50 mls @ 999 mls/hr 03/14/25 09:25 Albutein IVPB 04/13/25 09:24 Q10M PRN HYPOTENSION Dextrose 1,000 mls @ 100 mls/hr 03/16/25 08:39 Dextrose 5% 1,000 Ml IVPB PRN PRN Hypoglycemia Protocol Dextrose/Sodium Chloride 1,000 mls @ 100 mls/hr 03/16/25 15:20 03/17/25 03:34 Dextrose 5% Sodium Chloride 0.9% IV CONT 100 mls/hr .Q10H DAVID Administration Insulin Aspart 4 units 03/14/25 17:00 03/16/25 08:42 Insulin Aspart (*Bkc) 100 Units/Ml SUB-Q Not Given ACINSULIN [facility] Insulin Aspart 2 - 5 units 03/16/25 12:00 03/17/25 05:36 Insulin Aspart (*Bkc) 100 Units/Ml SUB-Q Not Given Q6H [facility] Protocol Insulin Glargine 6 units 03/14/25 21:00 03/15/25 20:00 Insulin Glargine (*Bkc) 100 Units/Ml SUB-Q Not Given HS [facility] Levalbuterol HCl 0.63 mg 03/14/25 20:00 03/17/25 07:36 Levalbuterol Neb 1.25 Mg/3 Ml INHALATION 0.63 mg Q6HRT DAVID Administration Loperamide HCl 2 mg 03/14/25 14:27 Loperamide Hcl 2 Mg Capsule PO Q4H PRN loose stool Loratadine 10 mg 03/14/25 14:50 03/16/25 08:43 Loratadine 10 Mg Tablet PO Not Given DAILY DAVID Loratadine 10 mg 03/14/25 14:27 Loratadine 10 Mg Tablet PO DAILY PRN itching Losartan Potassium 100 mg 03/14/25 16:09 Losartan Potassium 100 Mg Tablet PO DAILY PRN blood pressure Magnesium Citrate 296 ml 03/14/25 14:27 Magnesium Citrate 300 Ml Btl PO QAM PRN constipation Magnesium Hydroxide 30 ml 03/14/25 14:27 Magnesium Hydroxide Susp 30 Ml Udc PO HS PRN constipation Melatonin 3 mg 03/14/25 21:00 03/16/25 21:10 Melatonin 3 Mg Tablet PO 3 mg HS DAVID Administration Miscellaneous Information 1 each 03/15/25 00:01 03/17/25 03:33 Liraglutide Is Nonform; Can Pt Use From Home? XX 04/14/25 00:00 Not Given CLARIFY DAVID Morphine Sulfate 1 mg 03/16/25 15:17 03/16/25 17:13 Morphine Sulfate (*Crx) 2 Mg/Ml Inj IV PUSH 1 mg Q8H PRN Administration pain 4-10 while npo Non-Formulary Medication 1.2 mg 03/14/25 21:00 Liraglutide SUB-Q 04/13/25 20:59 HS [facility] Pentoxifylline 400 mg 03/14/25 18:00 03/16/25 17:19 Pentoxifylline 400 Mg Tabcr PO Not Given QPM DAVID Sevelamer Carbonate 0.8 gm 03/14/25 17:00 03/17/25 09:44 Sevelamer Carbonate 0.8 Gm Oral Powder Packet PO Not Given TIDWM DAVID Tamsulosin HCl 0.4 mg 03/14/25 21:00 03/16/25 21:10 Tamsulosin Hcl 0.4 Mg Capsule PO 0.4 mg QHS DAVID Administration Tramadol HCl 50 mg 03/14/25 17:00 03/17/25 09:59 Tramadol Hcl (*Crx) 50 Mg Tablet PO 50 mg BID DAIVD Administration Umeclidinium [place] 1 puff 03/15/25 08:00 03/17/25 07:37 Umeclidinium [place] 62.5 Mcg Ellipta INHALATION 1 puff DAILYRT DAVID Administration Vitamin B Complex 1 cap 03/14/25 14:50 03/16/25 08:43 Vitamin B Complex Capsule PO Not Given DAILY DAVID Radiology Results: ITS Impressions Head CT 03/14/25 07:24 IMPRESSION: 1. 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 No acute intracranial process. 2. Age-related changes including moderate diffuse volume loss and moderate scattered white matter hypoattenuation consistent with chronic small vessel ischemic disease. 3. Sinus disease. Chest X-Ray 03/14/25 07:59 IMPRESSION: 1. Pulmonary vascular congestion with no other acute cardiopulmonary disease. Labs Labs: Laboratory Tests 03/17/25 05:32 03/17/25 05:32 Calcium 10.7 H Magnesium 2.5 H Microbiology 03/14/25 09:00 Urine Catheterized Urine Culture Reflexed - Final [place] albicans
[2025-03-17] MEDS: EPOETIN ALFA-EPBX 4,000 UNITS/ML VIAL 4000 UNITS IV PUSH (11:37)
[2025-03-17 12:07] LABS: Glucose Point of Care 86 mg/dl (65-105)
[2025-03-17] MEDS: amLODIPine BESYLATE 10 MG TABLET PO (13:33)
[2025-03-17] MEDS: CINACALCET 30 MG TABLET 90 MG PO (13:33)
--- NOTE | 2025-03-17 15:05 | PCOTNOTE ---
Attempted again this P.M. for OT treatment session. Patient out od the room, Patient has gone down for MBS test.
--- NOTE | 2025-03-17 15:27 | PCSTNOTE ---
Please refer to the Modified Barium Swallow (MBS) Evaluation in the EMR. This 79 year old male was admitted to [facility] on 03/14/25 from his nursing facility due to increased somnolence. The patient was just discharged from [facility] on 03/12/25 after being hospitalized for shortness of breath, blurry vision, and upper extremity weakness/tremors. A bedside swallow evaluation (BSE) was ordered due pt demonstrating a cough during oral intake, including pills. Pt is missing some teeth. Bedside evaluation revealed that throughout all trials of different consistencies, the pt demonstrated a wet/gurgly vocal quality and a throat clear or cough. Given those results, an MBS was recommended. MBS: The patient was seated for a lateral view and presented with 5 ml of thin liquid barium via a spoon, pudding consistency barium via a spoon, a cracker coated with barium pudding via a spoon, and uncontrolled thin liquid barium. This was presented via a cup & straw. Oral preparatory and oral phase symptoms: none. Pharyngeal phase symptoms: none. Esophageal stage symptoms: none. Overall, no aspiration occurred. Impressions: Normal swallow Ability No further ST is warranted at this time.
--- NOTE | 2025-03-17 15:35 | P.PNIM_ITS ---
Progress Note: A&P Assessment and Plan (1) Acute exacerbation of CHF (congestive heart failure): Qualifiers: Heart failure type: unspecified Qualified Code(s): I50.9 - Heart failure, unspecified Code(s): I50.9 - Heart failure, unspecified Status: Acute (2) Atrial fibrillation: Code(s): I48.91 - Unspecified atrial fibrillation Status: Chronic (3) Peripheral vascular disease: Onset Date: ~03/2023 Code(s): I73.9 - Peripheral vascular disease, unspecified Status: Acute (4) Hypercapnia: Code(s): R06.89 - Other abnormalities of breathing Status: Acute Plan Patient is 79 y/o male with history of ESRD on HD has recurrent symptoms of weakness and blurry vision and get better after dialysis however today patient was quite somnolent upon arrival, ABG in the showed hypercapnia and patient was placed on BIPAP, this really helped patient mentation and repeat ABG showed improvement pCO2. most likely patient symptoms are stemming from hypercapnia, placed patient BIPAP at bedtime and during the day as needed, will consult clinical educator as patient will need CPAP or BIPAP and night time [place] link. patient will be seen by his charge nurse and further recommendation to follow. patient did pino BIPAP last night and feels much better more alert, and energetic, he has some cough with swallowing will have speech pathologist evaluate the patient and recommended NPO and he will MBS today he had apnea link tonight to possible get CPAP for home possibly tomorrow. patient did have HD today and seen by his charge nurse. Subjective Date/time seen: 03/17/25 15:35 Interval history: Patient is 79 y/o male with history of ESRD on HD has recurrent symptoms of weakness and blurry vision and get better after dialysis however today patient was quite somnolent upon arrival, ABG in the showed hypercapnia and patient was placed on BIPAP, this really helped patient mentation and repeat ABG showed improvement pCO2. most likely patient symptoms are stemming from hypercapnia, placed patient BIPAP at bedtime and during the day as needed, will consult clinical educator as patient will need CPAP or BIPAP and night time [place] link. patient will be seen by his charge nurse and further recommendation to follow. patient did pino BIPAP last night and feels much better more alert, and energetic, he has some cough with swallowing will have speech pathologist evaluate the patient and recommended NPO and he will MBS today he had apnea link tonight to possible get CPAP for home possibly tomorrow. patient did have HD today and seen by his charge nurse. Review of Systems Review of Systems: As per HPI. Exam Narrative: Patient is comfortable, NAD HEENT: eyes are clear and none icteric LUNGS:CTA HEART: RR S1S2 ABD: BS+, Soft and nontender Lower extremities: no edema SKIN: nonjaundiced Neuro: grossly intact. Objective Data Vital Signs Vital Signs: Vital Signs - 24 hr 03/16/25 16:00 03/16/25 20:00 03/16/25 20:00 Temperature Pulse Rate 83 83 83 Respiratory Rate 20 Blood Pressure Pulse Oximetry 92 Oxygen Delivery Room Air Oxygen Flow Rate Fraction of Inspired Oxygen 21 03/16/25 20:53 03/16/25 21:07 03/16/25 21:16 Temperature 36.8 C Pulse Rate 73 79 Respiratory Rate 18 20 Blood Pressure 145/75 H Pulse Oximetry 92 92 Oxygen Delivery Room Air Oxygen Flow Rate Fraction of Inspired Oxygen 03/16/25 21:17 03/16/25 22:40 03/17/25 00:00 Temperature Pulse Rate 83 64 Respiratory Rate 20 Blood Pressure Pulse Oximetry 96 Oxygen Delivery Nasal Cannula Oxygen Flow Rate 2 Fraction of Inspired Oxygen 03/17/25 04:00 03/17/25 05:00 03/17/25 07:38 Temperature 36.2 C L Pulse Rate 59 L 57 L 58 L Respiratory Rate 20 14 Blood Pressure 161/52 H Pulse Oximetry 100 Oxygen Delivery Oxygen Flow Rate Fraction of Inspired Oxygen 03/17/25 07:40 03/17/25 07:49 03/17/25 08:00 Temperature Pulse Rate 58 L 59 L Respiratory Rate 14 14 Blood Pressure Pulse Oximetry 98 98 Oxygen Delivery Nasal Cannula Room Air Oxygen Flow Rate 2 Fraction of Inspired Oxygen 03/17/25 08:00 03/17/25 08:38 03/17/25 08:54 Temperature 35.7 C L Pulse Rate 65 60 61 Respiratory Rate 16 Blood Pressure 161/80 H 164/88 H Pulse Oximetry 100 Oxygen Delivery Oxygen Flow Rate Fraction of Inspired Oxygen 03/17/25 08:54 03/17/25 09:00 03/17/25 09:15 Temperature Pulse Rate 63 65 Respiratory Rate Blood Pressure 171/84 H 136/60 Pulse Oximetry Oxygen Delivery Oxygen Flow Rate 2 Fraction of Inspired Oxygen 03/17/25 09:30 03/17/25 09:45 03/17/25 10:00 Temperature Pulse Rate 66 66 70 Respiratory Rate Blood Pressure 152/77 H 158/76 H 150/76 H Pulse Oximetry Oxygen Delivery Oxygen Flow Rate Fraction of Inspired Oxygen 03/17/25 10:15 03/17/25 10:30 03/17/25 10:45 Temperature Pulse Rate 76 66 70 Respiratory Rate Blood Pressure 128/80 157/72 H 147/77 H Pulse Oximetry Oxygen Delivery Oxygen Flow Rate Fraction of Inspired Oxygen 03/17/25 11:00 03/17/25 11:15 03/17/25 11:30 Temperature Pulse Rate 56 L 59 L 54 L Respiratory Rate Blood Pressure 158/77 H 151/61 H 144/80 H Pulse Oximetry Oxygen Delivery Oxygen Flow Rate Fraction of Inspired Oxygen 03/17/25 11:45 03/17/25 12:00 03/17/25 12:00 Temperature Pulse Rate 70 73 72 Respiratory Rate Blood Pressure 152/78 H 134/69 Pulse Oximetry Oxygen Delivery Oxygen Flow Rate Fraction of Inspired Oxygen 03/17/25 12:15 03/17/25 12:24 03/17/25 12:30 Temperature 36.5 C Pulse Rate 71 59 L 76 Respiratory Rate 16 Blood Pressure 168/87 H 135/73 171/83 H Pulse Oximetry 100 Oxygen Delivery Oxygen Flow Rate Fraction of Inspired Oxygen 03/17/25 13:13 03/17/25 14:14 03/17/25 14:23 Temperature Pulse Rate 63 Respiratory Rate 14 Blood Pressure Pulse Oximetry 94 96 Oxygen Delivery Room Air Room Air Oxygen Flow Rate Fraction of Inspired Oxygen Intake/Output Intake/Output: Intake & Output 03/14/25 03/15/25 03/16/25 03/17/25 23:59 23:59 23:59 23:59 Intake Total 903 268 8742 Output Total 2750 0 2800 Balance -2390 400 0 -1800 Meds/Results Medications: Active Medications Generic Name Dose Route Start Last Admin Trade Name Freq PRN Reason Stop Dose Admin Acetaminophen 650 mg 03/14/25 17:00 03/17/25 15:28 Acetaminophen 325 Mg Tablet PO Not Given TID [facility] Acetaminophen 650 mg 03/14/25 14:27 Acetaminophen 325 Mg Tablet PO Q4H PRN Mild Pain (1-3) Or Fever Amlodipine Besylate 10 mg 03/14/25 14:40 03/17/25 13:33 Amlodipine Besylate 10 Mg Tablet PO 10 mg DAILY DAVID Administration Aspirin 81 mg 03/14/25 14:40 03/16/25 08:43 Aspirin 81 Mg Enteric Tablet PO Not Given DAILY DAVID Atorvastatin Calcium 20 mg 03/14/25 21:00 03/16/25 21:10 Atorvastatin 20 Mg Tablet PO 20 mg HS DAVID Administration Baclofen 5 mg 03/14/25 17:00 03/17/25 15:28 Baclofen 5 Mg Tablet PO Not Given TID DAVID Bisacodyl 10 mg 03/14/25 14:27 Bisacodyl 10 Mg Suppository RECTAL DAILY PRN constipation Carvedilol 25 mg 03/14/25 21:00 03/17/25 13:32 Carvedilol 25 Mg Tablet PO Not Given Q12HR DAVID Cinacalcet 90 mg 03/14/25 14:40 03/17/25 13:33 Cinacalcet 30 Mg Tablet PO 90 mg DAILY DAVID Administration Cyclobenzaprine HCl 10 mg 03/14/25 14:27 03/16/25 21:10 Cyclobenzaprine Hcl 10 Mg Tablet PO 10 mg Q8H PRN Administration muscle spasm Dextrose 12.5 gm 03/16/25 08:39 Dextrose 50% 25 Gm/50 Ml Syringe IV PUSH PRN PRN Hypoglycemia Protocol Epoetin David-epbx 4,000 units 03/17/25 19:26 03/17/25 11:37 Epoetin David-Epbx 4,000 Units/Ml Vial IV PUSH 03/17/25 19:27 4,000 units ONCE ONE Administration Finasteride 5 mg 03/14/25 14:40 03/16/25 08:43 Finasteride 5 Mg Tablet PO Not Given QAM DAVID Furosemide 80 mg 03/14/25 17:00 03/17/25 13:30 Furosemide 80 Mg Tablet PO Not Given BID DAVID Gabapentin 100 mg 03/14/25 17:00 03/17/25 15:28 Gabapentin 100 Mg Capsule PO Not Given TID DAVID Glucagon 1 mg 03/16/25 08:39 Glucagon For Inj 1 Mg Vial IM PRN PRN Hypoglycemia Protocol Glucose 15 gm 03/16/25 08:39 Glucose Oral Gel 15 Gm Of Glucse In 37.5 Gm Tube PO PRN PRN Hypoglycemia Protocol Albumin Human 50 mls @ 999 mls/hr 03/14/25 09:25 Albutein IVPB 04/13/25 09:24 Q10M PRN HYPOTENSION Dextrose 1,000 mls @ 100 mls/hr 03/16/25 08:39 Dextrose 5% 1,000 Ml IVPB PRN PRN Hypoglycemia Protocol Dextrose/Sodium Chloride 1,000 mls @ 100 mls/hr 03/16/25 15:20 03/17/25 03:34 Dextrose 5% Sodium Chloride 0.9% IV CONT 100 mls/hr .Q10H DAVID Administration Insulin Aspart 4 units 03/14/25 17:00 03/16/25 08:42 Insulin Aspart (*Bkc) 100 Units/Ml SUB-Q Not Given ACINSULIN [facility] Insulin Aspart 2 - 5 units 03/16/25 12:00 03/17/25 05:36 Insulin Aspart (*Bkc) 100 Units/Ml SUB-Q Not Given Q6H DAVID Protocol Insulin Glargine 6 units 03/14/25 21:00 03/15/25 20:00 Insulin Glargine (*Bkc) 100 Units/Ml SUB-Q Not Given HS DAVID Levalbuterol HCl 0.63 mg 03/14/25 20:00 03/17/25 14:14 Levalbuterol Neb 1.25 Mg/3 Ml INHALATION 0.63 mg Q6HRT DAVID Administration Loperamide HCl 2 mg 03/14/25 14:27 Loperamide Hcl 2 Mg Capsule PO Q4H PRN loose stool Loratadine 10 mg 03/14/25 14:50 03/16/25 08:43 Loratadine 10 Mg Tablet PO Not Given DAILY DAVID Loratadine 10 mg 03/14/25 14:27 Loratadine 10 Mg Tablet PO DAILY PRN itching Losartan Potassium 100 mg 03/14/25 16:09 Losartan Potassium 100 Mg Tablet PO DAILY PRN blood pressure Magnesium Citrate 296 ml 03/14/25 14:27 Magnesium Citrate 300 Ml Btl PO QAM PRN constipation Magnesium Hydroxide 30 ml 03/14/25 14:27 Magnesium Hydroxide Susp 30 Ml Udc PO HS PRN constipation Melatonin 3 mg 03/14/25 21:00 03/16/25 21:10 Melatonin 3 Mg Tablet PO 3 mg HS DAVID Administration Miscellaneous Information 1 each 03/15/25 00:01 03/17/25 03:33 Liraglutide Is Nonform; Can Pt Use From Home? XX 04/14/25 00:00 Not Given CLARIFY DAVID Morphine Sulfate 1 mg 03/16/25 15:17 03/16/25 17:13 Morphine Sulfate (*Crx) 2 Mg/Ml Inj IV PUSH 1 mg Q8H PRN Administration pain 4-10 while npo Non-Formulary Medication 1.2 mg 03/14/25 21:00 Liraglutide SUB-Q 04/13/25 20:59 HS [facility] Pentoxifylline 400 mg 03/14/25 18:00 03/16/25 17:19 Pentoxifylline 400 Mg Tabcr PO Not Given QPM DAVID Sevelamer Carbonate 0.8 gm 03/14/25 17:00 03/17/25 13:41 Sevelamer Carbonate 0.8 Gm Oral Powder Packet PO Not Given TIDWM DAVID Tamsulosin HCl 0.4 mg 03/14/25 21:00 03/16/25 21:10 Tamsulosin Hcl 0.4 Mg Capsule PO 0.4 mg QHS [facility] Administration Tramadol HCl 50 mg 03/14/25 17:00 03/17/25 09:59 Tramadol Hcl (*Crx) 50 Mg Tablet PO 50 mg BID [facility] Administration Umeclidinium [place] 1 puff 03/15/25 08:00 03/17/25 07:37 Umeclidinium [place] 62.5 Mcg Ellipta INHALATION 1 puff DAILYRT [facility] Administration Vitamin B Complex 1 cap 03/14/25 14:50 03/16/25 08:43 Vitamin B Complex Capsule PO Not Given DAILY [facility] Radiology Results: ITS Impressions Head CT 03/14/25 07:24 IMPRESSION: 1. 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 No acute intracranial process. 2. Age-related changes including moderate diffuse volume loss and moderate scattered white matter hypoattenuation consistent with chronic small vessel ischemic disease. 3. Sinus disease. Chest X-Ray 03/14/25 07:59 IMPRESSION: 1. Pulmonary vascular congestion with no other acute cardiopulmonary disease. Labs Labs: Laboratory Results - last 24 hr 03/16/25 03/16/25 03/17/25 15:08 17:49 05:10 WBC RBC Hgb Hct MCV MCH MCHC RDW Plt Count MPV Sodium Potassium Chloride Carbon Dioxide Anion Gap BUN Creatinine Estim Creat Clear Calc Estimated GFR Glucose POC Capillary Glucose 76 80 104 Calcium Magnesium 03/17/25 03/17/25 05:32 12:04 WBC 4.7 RBC 3.75 L Hgb 10.0 L Hct 34.9 L MCV 93.1 MCH 26.7 MCHC 28.7 L RDW 18.3 H Plt Count 206 MPV 11.3 H Sodium 138 Potassium 4.2 Chloride 103 Carbon Dioxide 25 Anion Gap 10 BUN 42 H D Creatinine 6.66 H Estim Creat Clear Calc 8 Estimated GFR 8 L Glucose 96 POC Capillary Glucose 86 Calcium 10.7 H Magnesium 2.5 H
[2025-03-17] MEDS: ACETAMINOPHEN 325 MG TABLET 650 MG PO (15:46)
[2025-03-17] MEDS: FINASTERIDE 5 MG TABLET PO (15:46)
[2025-03-17] MEDS: VITAMIN B COMPLEX CAPSULE 1 CAP PO (15:46)
[2025-03-17] MEDS: BACLOFEN 5 MG TABLET PO (15:46)
[2025-03-17] MEDS: FUROSEMIDE 80 MG TABLET PO (15:46)
[2025-03-17] MEDS: LORATADINE 10 MG TABLET PO (15:46)
[2025-03-17] MEDS: ASPIRIN 81 MG ENTERIC TABLET PO (15:46)
[2025-03-17] MEDS: GABAPENTIN 100 MG CAPSULE PO (15:47)
[2025-03-17] MEDS: PENTOXIFYLLINE 400 MG TABCR PO (17:08)
[2025-03-17 17:09] LABS: Glucose Point of Care 133 mg/dl (65-105)
[2025-03-17] MEDS: SEVELAMER CARBONATE 0.8 GM ORAL POWDER PACKET PO (17:09)
[2025-03-17 20:36] LABS: Glucose Point of Care 126 mg/dl (65-105)
[2025-03-17] MEDS: carvediloL 25 MG TABLET PO (20:56)
[2025-03-17] MEDS: CYCLOBENZAPRINE HCL 10 MG TABLET PO (20:56)
[2025-03-17] MEDS: TAMSULOSIN HCL 0.4 MG CAPSULE PO (20:56)
[2025-03-17] MEDS: MELATONIN 3 MG TABLET PO (20:56)
[2025-03-17] MEDS: ATORVASTATIN 20 MG TABLET PO (20:56)
[2025-03-18] VITALS (12 sets, daily range): BP systolic 125–144; BP diastolic 57–87; PULSE 61–81; RESP 14–20; TEMP 35.9–36.1; O2SAT 93–97
[2025-03-18] MEDS: LEVALBUTEROL NEB 1.25 MG/3 ML 0.63 MG INHALATION ×3 (02:23→21:37)
[2025-03-18 06:56] LABS: Hematocrit 38.3 % (42.0-52.0); Hemoglobin 10.8 g/dL (14.0-18.0); Mean Corpuscular HGB Conc 28.2 g/dl (32-36); Mean Corpuscular Hemoglobin 26.5 pg (26-34); Mean Corpuscular Volume 94.1 fl (80-100); Mean Platelet Volume 11.3 fl (7.4-10.4); Platelet Count Result 188 k/mm3 (150-375); Red Blood Count 4.07 M/mm3 (4.6-6.20); Red Cell Distribution Width 18.2 % (11.5-14.5); White Blood Count 4.2 K/mm3 (4.5-10.0)
[2025-03-18 07:04] LABS: Anion Gap 9 mmol/L (4-12); Blood Urea Nitrogen 25 mg/dL (9-20); Calcium 9.8 mg/dL (8.4-10.2); Carbon Dioxide 28 mmol/L (22-30); Chloride 102 mmol/L (98-107); Estimated CRCL calculation 12 ml/min; Estimated Glomerular Filt Rate 13; Glucose 87 mg/dL (65-110); Magnesium 2.3 mg/dL (1.6-2.3); Sodium 139 mmol/L (137-145)
[2025-03-18 08:28] LABS: Glucose Point of Care 91 mg/dl (65-105)
[2025-03-18] MEDS: SEVELAMER CARBONATE 0.8 GM ORAL POWDER PACKET PO ×3 (09:12→17:58)
[2025-03-18] MEDS: FINASTERIDE 5 MG TABLET PO (09:12)
[2025-03-18] MEDS: FUROSEMIDE 80 MG TABLET PO ×2 (09:12→17:56)
[2025-03-18] MEDS: VITAMIN B COMPLEX CAPSULE 1 CAP PO (09:12)
[2025-03-18] MEDS: CINACALCET 30 MG TABLET 90 MG PO (09:12)
[2025-03-18] MEDS: ASPIRIN 81 MG ENTERIC TABLET PO (09:13)
[2025-03-18] MEDS: GABAPENTIN 100 MG CAPSULE PO ×3 (09:13→17:56)
[2025-03-18] MEDS: BACLOFEN 5 MG TABLET PO ×3 (09:13→17:57)
[2025-03-18] MEDS: ACETAMINOPHEN 325 MG TABLET 650 MG PO ×4 (09:13→21:59)
[2025-03-18] MEDS: LORATADINE 10 MG TABLET PO (09:13)
[2025-03-18] MEDS: traMADol HCL (*CRX) 50 MG TABLET PO ×2 (09:13→17:56)
[2025-03-18] MEDS: carvediloL 25 MG TABLET PO ×2 (09:13→21:15)
[2025-03-18] MEDS: amLODIPine BESYLATE 10 MG TABLET PO (09:13)
[2025-03-18 12:11] LABS: Glucose Point of Care 138 mg/dl (65-105)
--- NOTE | 2025-03-18 14:30 | P.PNNP_ITS ---
Progress Note: A&P Assessment and Plan (1) End stage renal disease: Code(s): N18.6 - End stage renal disease Status: Chronic Assessment and Plan: * HD tomorrow * continue T/T/S outpatient dialysis schedule while hospitalized * follow electrolytes, volume status, and clearance (2) Altered mental status: Code(s): R41.82 - Altered mental status, unspecified Status: Acute Assessment and Plan: * significant improvement noted if not resolved * as noted on presentation to ER/hospital * evaluation noted so far: * ABG with acidosis and mild CO2 retention (improvement noted with BiPAP) * CT of head without acute pathology * UA with possible/questionable infection * normal WBC * medication related (pain meds, baclofen, flexiril, gabapentin...etc) * hypercalcemia -- however, calcium level has been higher in the past without any neurological issues) * other(?) * improvement with BiPAP therapy noted * Pulmonary consulted for further assessment * hold sedating medications (would consider holding baclofen) * follow trend of mentation (3) Volume overload: Code(s): E87.70 - Fluid overload, unspecified Status: Acute Assessment and Plan: * as noted by admission CXR findings * however, relatively mild in comparison to previous admissions * fluid/ultrafiltration with dialysis to maintain euvolemia * in the past, this has been complicated by his COPD/reactive airway disease (4) Atrial fibrillation: Code(s): I48.91 - Unspecified atrial fibrillation Status: Chronic Assessment and Plan: * rate control strategy * restarted anticoagulation (Eliquis) last hospitalization * apparently previously held due to issues with GI bleeding (5) Hypercalcemia: Code(s): E83.52 - Hypercalcemia Status: Chronic Assessment and Plan: * doing better * noted on last couple of hospitalizations as well * not clear on etiology * sensipar/cinacalcet usually causes hypocalcemia * possibly due to prolonged immobilization/bed bound state? * adjusting calcium bath with dialysis to compensate (6) Anemia: Code(s): D64.9 - Anemia, unspecified Status: Chronic Assessment and Plan: * due to ESRD * Epogen with HD * follow trend of H/H (7) Essential (primary) hypertension: Code(s): I10 - Essential (primary) hypertension Status: Chronic Assessment and Plan: * reasonable control * fluid removal with HD helps to some degree * resume home medications * follow trend of hemodynamics (8) IDDM (insulin dependent diabetes mellitus): Status: Chronic Assessment and Plan: * follow accu-cheks * glycemic control per hospitalist Will continue to follow. L Subjective Date/time seen: 03/18/25 14:30 Interval history: Follow-up for end stage renal disease on hemodialysis. Tolerated dialysis treatment yesterday without any issues or problems; breathing/respiratory status appears relatively stable at the time of my visit; no events overnight or earlier this morning; feels reasonably well when seen; no apparent distress noted. Exam 2 Narrative: General: elderly WD/WN male in NAD Heart: normal S1 and S2; no rub Lungs: coarse breath sounds at bases Abdomen: soft, nontender, nondistended, positive bowel sounds Extremities: no cyanosis or clubbing; trace edema Skin: no nodules Objective Data Vital Signs Vital Signs: Vital Signs Temp Pulse Resp BP Pulse Ox O2 Del Method FiO2 03/18/25 14:26 80 20 03/18/25 14:15 78 20 03/18/25 14:00 96.9 F L 61 16 125/57 L 93 03/18/25 09:15 Room Air 03/18/25 09:13 65 03/18/25 05:23 96.6 F L 65 14 144/63 H 97 03/18/25 02:33 80 20 03/18/25 02:26 81 20 97 Room Air 21 03/18/25 02:24 81 20 03/17/25 21:35 97.0 F L 51 L 16 126/68 90 03/17/25 20:10 77 18 03/17/25 20:04 92 Room Air 03/17/25 20:00 80 18 Intake/Output Intake/Output: Intake & Output 03/15/25 03/16/25 03/17/25 03/18/25 23:59 23:59 23:59 23:59 Intake Total 400 1240 640 Output Total 0 2800 0 Balance 400 0 -1560 640 Meds/Results Medications: Active Medications Generic Name Dose Route Start Last Admin Trade Name Freq PRN Reason Stop Dose Admin Acetaminophen 650 mg 03/14/25 17:00 03/18/25 12:23 Acetaminophen 325 Mg Tablet PO 650 mg TID DAVID Administration Acetaminophen 650 mg 03/14/25 14:27 Acetaminophen 325 Mg Tablet PO Q4H PRN Mild Pain (1-3) Or Fever Amlodipine Besylate 10 mg 03/14/25 14:40 03/18/25 09:13 Amlodipine Besylate 10 Mg Tablet PO 10 mg DAILY DAVID Administration Aspirin 81 mg 03/14/25 14:40 03/18/25 09:13 Aspirin 81 Mg Enteric Tablet PO 81 mg DAILY DAVID Administration Atorvastatin Calcium 20 mg 03/14/25 21:00 03/17/25 20:56 Atorvastatin 20 Mg Tablet PO 20 mg HS DAVID Administration Baclofen 5 mg 03/14/25 17:00 03/18/25 12:23 Baclofen 5 Mg Tablet PO 5 mg TID DAVID Administration Bisacodyl 10 mg 03/14/25 14:27 Bisacodyl 10 Mg Suppository RECTAL DAILY PRN constipation Carvedilol 25 mg 03/14/25 21:00 03/18/25 09:13 Carvedilol 25 Mg Tablet PO 25 mg Q12HR DAVID Administration Cinacalcet 90 mg 03/14/25 14:40 03/18/25 09:12 Cinacalcet 30 Mg Tablet PO 90 mg DAILY DAVID Administration Cyclobenzaprine HCl 10 mg 03/14/25 14:27 03/17/25 20:56 Cyclobenzaprine Hcl 10 Mg Tablet PO 10 mg Q8H PRN Administration muscle spasm Dextrose 12.5 gm 03/16/25 08:39 Dextrose 50% 25 Gm/50 Ml Syringe IV PUSH PRN PRN Hypoglycemia Protocol Finasteride 5 mg 03/14/25 14:40 03/18/25 09:12 Finasteride 5 Mg Tablet PO 5 mg QAM DAVID Administration Furosemide 80 mg 03/14/25 17:00 03/18/25 09:12 Furosemide 80 Mg Tablet PO 80 mg BID DAVID Administration Gabapentin 100 mg 03/14/25 17:00 03/18/25 12:23 Gabapentin 100 Mg Capsule PO 100 mg TID DAVID Administration Glucagon 1 mg 03/16/25 08:39 Glucagon For Inj 1 Mg Vial IM PRN PRN Hypoglycemia Protocol Glucose 15 gm 03/16/25 08:39 Glucose Oral Gel 15 Gm Of Glucse In 37.5 Gm Tube PO PRN PRN Hypoglycemia Protocol Albumin Human 50 mls @ 999 mls/hr 03/14/25 09:25 Albutein IVPB 04/13/25 09:24 Q10M PRN HYPOTENSION Dextrose 1,000 mls @ 100 mls/hr 03/16/25 08:39 Dextrose 5% 1,000 Ml IVPB PRN PRN Hypoglycemia Protocol Insulin Aspart 4 units 03/14/25 17:00 03/16/25 08:42 Insulin Aspart (*Bkc) 100 Units/Ml SUB-Q Not Given ACINSULIN [facility] Insulin Aspart 2 - 5 units 03/17/25 17:00 03/18/25 17:20 Insulin Aspart (*Bkc) 100 Units/Ml SUB-Q Not Given TIDWM [facility] Protocol Insulin Glargine 6 units 03/14/25 21:00 03/15/25 20:00 Insulin Glargine (*Bkc) 100 Units/Ml SUB-Q Not Given HS DAVID Levalbuterol HCl 0.63 mg 03/14/25 20:00 03/18/25 14:17 Levalbuterol Neb 1.25 Mg/3 Ml INHALATION 0.63 mg Q6HRT DAVID Administration Loperamide HCl 2 mg 03/14/25 14:27 Loperamide Hcl 2 Mg Capsule PO Q4H PRN loose stool Loratadine 10 mg 03/14/25 14:50 03/18/25 09:13 Loratadine 10 Mg Tablet PO 10 mg DAILY DAVID Administration Loratadine 10 mg 03/14/25 14:27 Loratadine 10 Mg Tablet PO DAILY PRN itching Losartan Potassium 100 mg 03/14/25 16:09 Losartan Potassium 100 Mg Tablet PO DAILY PRN blood pressure Magnesium Citrate 296 ml 03/14/25 14:27 Magnesium Citrate 300 Ml Btl PO QAM PRN constipation Magnesium Hydroxide 30 ml 03/14/25 14:27 Magnesium Hydroxide Susp 30 Ml Udc PO HS PRN constipation Melatonin 3 mg 03/14/25 21:00 03/17/25 20:56 Melatonin 3 Mg Tablet PO 3 mg HS DAVID Administration Miscellaneous Information 1 each 03/15/25 00:01 03/18/25 00:54 Liraglutide Is Nonform; Can Pt Use From Home? XX 04/14/25 00:00 Not Given CLARIFY DAVID Morphine Sulfate 1 mg 03/16/25 15:17 03/16/25 17:13 Morphine Sulfate (*Crx) 2 Mg/Ml Inj IV PUSH 1 mg Q8H PRN Administration pain 4-10 while npo Non-Formulary Medication 1.2 mg 03/14/25 21:00 Liraglutide SUB-Q 04/13/25 20:59 HS DAVID Pentoxifylline 400 mg 03/14/25 18:00 03/17/25 17:08 Pentoxifylline 400 Mg Tabcr PO 400 mg QPM DAVID Administration Sevelamer Carbonate 0.8 gm 03/14/25 17:00 03/18/25 12:23 Sevelamer Carbonate 0.8 Gm Oral Powder Packet PO 0.8 gm TIDWM DAVID Administration Tamsulosin HCl 0.4 mg 03/14/25 21:00 03/17/25 20:56 Tamsulosin Hcl 0.4 Mg Capsule PO 0.4 mg QHS DAVID Administration Tramadol HCl 50 mg 03/14/25 17:00 03/18/25 09:13 Tramadol Hcl (*Crx) 50 Mg Tablet PO 50 mg BID DAVID Administration Umeclidinium [place] 1 puff 03/15/25 08:00 03/17/25 07:37 Umeclidinium [place] 62.5 Mcg Ellipta INHALATION 1 puff DAILYRT DAVID Administration Vitamin B Complex 1 cap 03/14/25 14:50 03/18/25 09:12 Vitamin B Complex Capsule PO 1 cap DAILY DAVID Administration Radiology Results: ITS Impressions Head CT 03/14/25 07:24 IMPRESSION: 1. 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 No acute intracranial process. 2. Age-related changes including moderate diffuse volume loss and moderate scattered white matter hypoattenuation consistent with chronic small vessel ischemic disease. 3. Sinus disease. Chest X-Ray 03/14/25 07:59 IMPRESSION: 1. Pulmonary vascular congestion with no other acute cardiopulmonary disease. Modified Barium Swallow 03/17/25 15:50 IMPRESSION: Patient tolerated regular consistency oral feedings in the upright position. Please correlate with speech pathologist findings and specific feeding recommendations. Labs Labs: Laboratory Tests 03/18/25 06:02 03/18/25 06:02 Calcium 9.8 Magnesium 2.3
--- NOTE | 2025-03-18 16:38 | P.PNIM_ITS ---
Progress Note: A&P Assessment and Plan (1) Acute exacerbation of CHF (congestive heart failure): Qualifiers: Heart failure type: unspecified Qualified Code(s): I50.9 - Heart failure, unspecified Code(s): I50.9 - Heart failure, unspecified Status: Acute (2) Atrial fibrillation: Code(s): I48.91 - Unspecified atrial fibrillation Status: Chronic (3) Peripheral vascular disease: Onset Date: ~03/2023 Code(s): I73.9 - Peripheral vascular disease, unspecified Status: Acute (4) Hypercapnia: Code(s): R06.89 - Other abnormalities of breathing Status: Acute Plan Patient is 79 y/o male with history of ESRD on HD has recurrent symptoms of weakness and blurry vision and get better after dialysis however today patient was quite somnolent upon arrival, ABG in the showed hypercapnia and patient was placed on BIPAP, this really helped patient mentation and repeat ABG showed improvement pCO2. most likely patient symptoms are stemming from hypercapnia, placed patient BIPAP at bedtime and during the day as needed, will consult earth science professor as patient will need CPAP or BIPAP and night time [place] link. patient will be seen by his veterinarian laboratory animal care and further recommendation to follow. patient did pino BIPAP last night and feels much better more alert, and energetic, he has some cough with swallowing will have speech pathologist evaluate the patient and recommended NPO and he will MBS, he passed, he had apnea link at night to possible get CPAP for home possibly, discuss respiratory therapist patient will CPAP for his home, patien will HD tomorrow and will discharge and seen by his veterinarian laboratory animal care. Subjective Date/time seen: 03/18/25 16:38 Interval history: Patient is 79 y/o male with history of ESRD on HD has recurrent symptoms of weakness and blurry vision and get better after dialysis however today patient was quite somnolent upon arrival, ABG in the showed hypercapnia and patient was placed on BIPAP, this really helped patient mentation and repeat ABG showed improvement pCO2. most likely patient symptoms are stemming from hypercapnia, placed patient BIPAP at bedtime and during the day as needed, will consult earth science professor as patient will need CPAP or BIPAP and night time [place] link. patient will be seen by his veterinarian laboratory animal care and further recommendation to follow. patient did pino BIPAP last night and feels much better more alert, and energetic, he has some cough with swallowing will have speech pathologist evaluate the patient and recommended NPO and he will MBS, he passed, he had apnea link at night to possible get CPAP for home possibly, discuss respiratory therapist patient will CPAP for his home, patien will HD tomorrow and will discharge and seen by his veterinarian laboratory animal care. Review of Systems Review of Systems: As per HPI. Exam Narrative: Patient is comfortable, NAD HEENT: eyes are clear and none icteric LUNGS:CTA HEART: RR S1S2 ABD: BS+, Soft and nontender Lower extremities: no edema SKIN: nonjaundiced Neuro: grossly intact. Objective Data Vital Signs Vital Signs: Vital Signs - 24 hr 03/17/25 20:00 03/17/25 20:04 03/17/25 20:10 Temperature Pulse Rate 80 77 Respiratory Rate 18 18 Blood Pressure Pulse Oximetry 92 Oxygen Delivery Room Air Fraction of Inspired Oxygen 03/17/25 21:35 03/18/25 02:24 03/18/25 02:26 Temperature 36.1 C L Pulse Rate 51 L 81 81 Respiratory Rate 16 20 20 Blood Pressure 126/68 Pulse Oximetry 90 97 Oxygen Delivery Room Air Fraction of Inspired Oxygen 03/18/25 02:33 03/18/25 05:23 03/18/25 09:13 Temperature 35.9 C L Pulse Rate 80 65 65 Respiratory Rate 20 14 Blood Pressure 144/63 H Pulse Oximetry 97 Oxygen Delivery Fraction of Inspired Oxygen 03/18/25 09:15 03/18/25 14:00 03/18/25 14:15 Temperature 36.1 C L Pulse Rate 61 78 Respiratory Rate 16 20 Blood Pressure 125/57 L Pulse Oximetry 93 Oxygen Delivery Room Air Fraction of Inspired Oxygen 03/18/25 14:36 Temperature Pulse Rate 80 Respiratory Rate 20 Blood Pressure Pulse Oximetry Oxygen Delivery Fraction of Inspired Oxygen Intake/Output Intake/Output: Intake & Output 03/15/25 03/16/25 03/17/25 03/18/25 23:59 23:59 23:59 23:59 Intake Total 400 1240 640 Output Total 0 2800 0 Balance 400 0 -1560 640 Meds/Results Medications: Active Medications Generic Name Dose Route Start Last Admin Trade Name Freq PRN Reason Stop Dose Admin Acetaminophen 650 mg 03/14/25 17:00 03/18/25 12:23 Acetaminophen 325 Mg Tablet PO 650 mg TID DAVID Administration Acetaminophen 650 mg 03/14/25 14:27 Acetaminophen 325 Mg Tablet PO Q4H PRN Mild Pain (1-3) Or Fever Amlodipine Besylate 10 mg 03/14/25 14:40 03/18/25 09:13 Amlodipine Besylate 10 Mg Tablet PO 10 mg DAILY DAVID Administration Aspirin 81 mg 03/14/25 14:40 03/18/25 09:13 Aspirin 81 Mg Enteric Tablet PO 81 mg DAILY DAVID Administration Atorvastatin Calcium 20 mg 03/14/25 21:00 03/17/25 20:56 Atorvastatin 20 Mg Tablet PO 20 mg HS DAVID Administration Baclofen 5 mg 03/14/25 17:00 03/18/25 12:23 Baclofen 5 Mg Tablet PO 5 mg TID DAVID Administration Bisacodyl 10 mg 03/14/25 14:27 Bisacodyl 10 Mg Suppository RECTAL DAILY PRN constipation Carvedilol 25 mg 03/14/25 21:00 03/18/25 09:13 Carvedilol 25 Mg Tablet PO 25 mg Q12HR DAVID Administration Cinacalcet 90 mg 03/14/25 14:40 03/18/25 09:12 Cinacalcet 30 Mg Tablet PO 90 mg DAILY DAVID Administration Cyclobenzaprine HCl 10 mg 03/14/25 14:27 03/17/25 20:56 Cyclobenzaprine Hcl 10 Mg Tablet PO 10 mg Q8H PRN Administration muscle spasm Dextrose 12.5 gm 03/16/25 08:39 Dextrose 50% 25 Gm/50 Ml Syringe IV PUSH PRN PRN Hypoglycemia Protocol Finasteride 5 mg 03/14/25 14:40 03/18/25 09:12 Finasteride 5 Mg Tablet PO 5 mg QAM DAVID Administration Furosemide 80 mg 03/14/25 17:00 03/18/25 09:12 Furosemide 80 Mg Tablet PO 80 mg BID DAVID Administration Gabapentin 100 mg 03/14/25 17:00 03/18/25 12:23 Gabapentin 100 Mg Capsule PO 100 mg TID DAVID Administration Glucagon 1 mg 03/16/25 08:39 Glucagon For Inj 1 Mg Vial IM PRN PRN Hypoglycemia Protocol Glucose 15 gm 03/16/25 08:39 Glucose Oral Gel 15 Gm Of Glucse In 37.5 Gm Tube PO PRN PRN Hypoglycemia Protocol Albumin Human 50 mls @ 999 mls/hr 03/14/25 09:25 Albutein IVPB 04/13/25 09:24 Q10M PRN HYPOTENSION Dextrose 1,000 mls @ 100 mls/hr 03/16/25 08:39 Dextrose 5% 1,000 Ml IVPB PRN PRN Hypoglycemia Protocol Insulin Aspart 4 units 03/14/25 17:00 03/16/25 08:42 Insulin Aspart (*Bkc) 100 Units/Ml SUB-Q Not Given ACINSULIN DAVID Insulin Aspart 2 - 5 units 03/17/25 17:00 03/18/25 12:12 Insulin Aspart (*Bkc) 100 Units/Ml SUB-Q Not Given TIDWM DAVID Protocol Insulin Glargine 6 units 03/14/25 21:00 03/15/25 20:00 Insulin Glargine (*Bkc) 100 Units/Ml SUB-Q Not Given HS DAVID Levalbuterol HCl 0.63 mg 03/14/25 20:00 03/18/25 14:17 Levalbuterol Neb 1.25 Mg/3 Ml INHALATION 0.63 mg Q6HRT DAVID Administration Loperamide HCl 2 mg 03/14/25 14:27 Loperamide Hcl 2 Mg Capsule PO Q4H PRN loose stool Loratadine 10 mg 03/14/25 14:50 03/18/25 09:13 Loratadine 10 Mg Tablet PO 10 mg DAILY DAVID Administration Loratadine 10 mg 03/14/25 14:27 Loratadine 10 Mg Tablet PO DAILY PRN itching Losartan Potassium 100 mg 03/14/25 16:09 Losartan Potassium 100 Mg Tablet PO DAILY PRN blood pressure Magnesium Citrate 296 ml 03/14/25 14:27 Magnesium Citrate 300 Ml Btl PO QAM PRN constipation Magnesium Hydroxide 30 ml 03/14/25 14:27 Magnesium Hydroxide Susp 30 Ml Udc PO HS PRN constipation Melatonin 3 mg 03/14/25 21:00 03/17/25 20:56 Melatonin 3 Mg Tablet PO 3 mg HS DAVID Administration Miscellaneous Information 1 each 03/15/25 00:01 03/18/25 00:54 Liraglutide Is Nonform; Can Pt Use From Home? XX 04/14/25 00:00 Not Given CLARIFY DAVID Morphine Sulfate 1 mg 03/16/25 15:17 03/16/25 17:13 Morphine Sulfate (*Crx) 2 Mg/Ml Inj IV PUSH 1 mg Q8H PRN Administration pain 4-10 while npo Non-Formulary Medication 1.2 mg 03/14/25 21:00 Liraglutide SUB-Q 04/13/25 20:59 HS [facility] Pentoxifylline 400 mg 03/14/25 18:00 03/17/25 17:08 Pentoxifylline 400 Mg Tabcr PO 400 mg QPM DAVID Administration Sevelamer Carbonate 0.8 gm 03/14/25 17:00 03/18/25 12:23 Sevelamer Carbonate 0.8 Gm Oral Powder Packet PO 0.8 gm TIDWM DAVID Administration Tamsulosin HCl 0.4 mg 03/14/25 21:00 03/17/25 20:56 Tamsulosin Hcl 0.4 Mg Capsule PO 0.4 mg QHS DAVID Administration Tramadol HCl 50 mg 03/14/25 17:00 03/18/25 09:13 Tramadol Hcl (*Crx) 50 Mg Tablet PO 50 mg BID DAVID Administration Umeclidinium [place] 1 puff 03/15/25 08:00 03/17/25 07:37 Umeclidinium [place] 62.5 Mcg Ellipta INHALATION 1 puff DAILYRT DAVID Administration Vitamin B Complex 1 cap 03/14/25 14:50 03/18/25 09:12 Vitamin B Complex Capsule PO 1 cap DAILY DAVID Administration Radiology Results: ITS Impressions Head CT 03/14/25 07:24 IMPRESSION: 1. 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 No acute intracranial process. 2. Age-related changes including moderate diffuse volume loss and moderate scattered white matter hypoattenuation consistent with chronic small vessel ischemic disease. 3. Sinus disease. Chest X-Ray 03/14/25 07:59 IMPRESSION: 1. Pulmonary vascular congestion with no other acute cardiopulmonary disease. Modified Barium Swallow 03/17/25 15:50 IMPRESSION: Patient tolerated regular consistency oral feedings in the upright position. Please correlate with speech pathologist findings and specific feeding recommendations. Labs Labs: Laboratory Results - last 24 hr 03/17/25 03/17/25 03/18/25 16:50 20:29 06:02 WBC 4.2 L RBC 4.07 L Hgb 10.8 L Hct 38.3 L MCV 94.1 MCH 26.5 MCHC 28.2 L RDW 18.2 H Plt Count 188 MPV 11.3 H Sodium 139 Potassium 4.0 Chloride 102 Carbon Dioxide 28 Anion Gap 9 BUN 25 H D Creatinine 4.46 H Estim Creat Clear Calc 12 Estimated GFR 13 L Glucose 87 POC Capillary Glucose 133 H 126 H Calcium 9.8 Magnesium 2.3 03/18/25 03/18/25 07:55 12:01 WBC RBC Hgb Hct MCV MCH MCHC RDW Plt Count MPV Sodium Potassium Chloride Carbon Dioxide Anion Gap BUN Creatinine Estim Creat Clear Calc Estimated GFR Glucose POC Capillary Glucose 91 138 H Calcium Magnesium
[2025-03-18 17:10] LABS: Glucose Point of Care 181 mg/dl (65-105)
[2025-03-18] MEDS: PENTOXIFYLLINE 400 MG TABCR PO (17:56)
[2025-03-18] MEDS: ATORVASTATIN 20 MG TABLET PO (21:15)
[2025-03-18] MEDS: TAMSULOSIN HCL 0.4 MG CAPSULE PO (21:15)
[2025-03-18] MEDS: MELATONIN 3 MG TABLET PO (21:15)
[2025-03-18 21:36] LABS: Glucose Point of Care 167 mg/dl (65-105)
[2025-03-19] VITALS (21 sets, daily range): BP systolic 134–178; BP diastolic 52–98; PULSE 55–82; RESP 14–20; TEMP 36.8–37; O2SAT 92–98
[2025-03-19] MEDS: LEVALBUTEROL NEB 1.25 MG/3 ML 0.63 MG INHALATION (02:38)
[2025-03-19 07:29] LABS: Hematocrit 35.6 % (42.0-52.0); Hemoglobin 10.4 g/dL (14.0-18.0); Magnesium 2.3 mg/dL (1.6-2.3); Mean Corpuscular HGB Conc 29.2 g/dl (32-36); Mean Corpuscular Hemoglobin 26.9 pg (26-34); Mean Platelet Volume 11.2 fl (7.4-10.4); Platelet Count Result 176 k/mm3 (150-375); Red Blood Count 3.87 M/mm3 (4.6-6.20); Red Cell Distribution Width 18.2 % (11.5-14.5); White Blood Count 4.2 K/mm3 (4.5-10.0)
[2025-03-19 07:33] LABS: Albumin Level 3.7 g/dL (3.5-5.1); Anion Gap 8 mmol/L (4-12); Blood Urea Nitrogen 49 mg/dL (9-20); Calcium 10.1 mg/dL (8.4-10.2); Carbon Dioxide 29 mmol/L (22-30); Chloride 99 mmol/L (98-107); Estimated CRCL calculation 10 ml/min; Estimated Glomerular Filt Rate 10; Glucose 109 mg/dL (65-110); Phosphorus 4.6 mg/dL (2.5-4.5); Potassium 4.4 mmol/L (3.4-5.0); Sodium 136 mmol/L (137-145)
[2025-03-19] MEDS: SODIUM CHLORIDE 0.9% IV 1,000 ML 999 ML IV CONT (08:39)
[2025-03-19 08:48] LABS: Glucose Point of Care 112 mg/dl (65-105)
--- NOTE | 2025-03-19 09:56 | PM.DS ---
DS: Admitting Diagnosis Discharge Date 03/19/25 Admitting Diagnosis increased weakness DS: Discharge Diagnosis Discharge Diagnosis (1) Acute exacerbation of CHF (congestive heart failure): Qualifiers: Heart failure type: unspecified Qualified Code(s): I50.9 - Heart failure, unspecified Code(s): I50.9 - Heart failure, unspecified Status: Acute (2) Atrial fibrillation: Code(s): I48.91 - Unspecified atrial fibrillation Status: Chronic (3) Peripheral vascular disease: Onset Date: ~03/2023 Code(s): I73.9 - Peripheral vascular disease, unspecified Status: Acute (4) Hypercapnia: Code(s): R06.89 - Other abnormalities of breathing Status: Acute Plan Patient is 79 y/o male with history of ESRD on HD has recurrent symptoms of weakness and blurry vision and get better after dialysis however today patient was quite somnolent upon arrival, ABG in the showed hypercapnia and patient was placed on BIPAP, this really helped patient mentation and repeat ABG showed improvement pCO2. most likely patient symptoms are stemming from hypercapnia, placed patient BIPAP at bedtime and during the day as needed, will consult scale tank operator as patient will need CPAP or BIPAP and night time [place] link. patient will be seen by his clinical research monitor and further recommendation to follow. patient did pino BIPAP last night and feels much better more alert, and energetic, he has some cough with swallowing will have speech pathologist evaluate the patient and recommended NPO and he will MBS, he passed, he had apnea link at night to possible get CPAP for home possibly, discuss respiratory therapist patient will CPAP for his home, patien will HD tomorrow and will discharge and seen by his clinical research monitor. DS: Summary Hospital Course Hospital Course: Patient is 79 y/o male with history of ESRD on HD has recurrent symptoms of weakness and blurry vision and get better after dialysis however today patient was quite somnolent upon arrival, ABG in the showed hypercapnia and patient was placed on BIPAP, this really helped patient mentation and repeat ABG showed improvement pCO2. most likely patient symptoms are stemming from hypercapnia, placed patient BIPAP at bedtime and during the day as needed, will consult scale tank operator as patient will need CPAP or BIPAP and night time [place] link. patient will be seen by his clinical research monitor and further recommendation to follow. patient did pino BIPAP last night and feels much better more alert, and energetic, he has some cough with swallowing will have speech pathologist evaluate the patient and recommended NPO and he will MBS, he passed, he had apnea link at night to possible get CPAP for home possibly, discuss respiratory therapist patient will CPAP for his home, patient will HD tomorrow and will discharge and seen by his clinical research monitor. patient clinical symptoms have improved with BIPAP, patient will have BIPAP at his NH, patient is clinically stable, will discharge the patient today. Time Spent with Patient Time attestation: Total time spent providing and/or coordinating discharge services: Exam Narrative: Patient is comfortable, NAD HEENT: eyes are clear and none icteric LUNGS:CTA HEART: RR S1S2 ABD: BS+, Soft and nontender Lower extremities: no edema SKIN: nonjaundiced Neuro: grossly intact. DS: Data Data Completed and Pending Labs on day of discharge: Labs from last 24 hours 03/19/25 03/19/25 03/18/25 08:45 06:37 21:23 WBC 4.2 L RBC 3.87 L Hgb 10.4 L Hct 35.6 L MCV 92.0 MCH 26.9 MCHC 29.2 L RDW 18.2 H Plt Count 176 MPV 11.2 H Sodium 136 L Potassium 4.4 Chloride 99 Carbon Dioxide 29 Anion Gap 8 BUN 49 H D Creatinine 5.60 H Estim Creat Clear Calc 10 Estimated GFR 10 L Glucose 109 POC Capillary Glucose 112 H 167 H Calcium 10.1 Phosphorus 4.6 H Magnesium 2.3 Albumin 3.7 03/18/25 03/18/25 17:07 12:01 WBC RBC Hgb Hct MCV MCH MCHC RDW Plt Count MPV Sodium Potassium Chloride Carbon Dioxide Anion Gap BUN Creatinine Estim Creat Clear Calc Estimated GFR Glucose POC Capillary Glucose 181 H 138 H Calcium Phosphorus Magnesium Albumin Preliminary micro results at discharge 03/14/25 20:35 Blood Culture - Preliminary Blood 03/14/25 20:33 Blood Culture - Preliminary Blood Discharge Plan Discharge Attending physician on discharge: Juan Carlos Gooden Consulting providers: Cole Murguia; Martina Booth; Reanna Tao; Rom Tran Paul Discharging Clinician: Gregorio Siegel Patient Disposition: [place] Fpc/Asst Living Activity: as tolerated Diet: renal and low sodium Discharge Instructions: Patient CPAP will be delivered at his NH, patient to follow up with his primary care provider as soon as possible. Patient will have his scheduled dialysis and follow up with his clinical research monitor. patient is instructed if any symptoms redevelop to go to nearest ER. Patient Instructions: Antibiotic Form Patient Language: Ivorian Stand Alone Forms: General Discharge Information Follow-up/Referrals: Martina Booth MD [Physician] - Radha Carrion MD [Primary Care Provider] - Discharge Medications: New levalbuterol HCl 1.25 mg/3 mL Solution For Nebulization 0.63 mg inhalation Q6HRT Qty: 30 0RF sevelamer carbonate 0.8 gram Powder In Packet 0.8 g PO TIDWM Qty: 60 0RF levalbuterol HCl 0.63 mg/3 mL solution for nebulization 0.63 mg inhalation Q6H PRN (Reason: shortness of breath or wheezing) Qty: 90 0RF Continued carvedilol 25 mg tablet 25 mg PO BID aspirin 81 mg tablet,delayed release (DR/EC) 81 mg PO DAILY insulin lispro 100 unit/mL insulin pen 4 unit subcut .TIDAC loratadine [Claritin] 10 mg tablet 10 mg PO DAILY insulin glargine [Lantus Solostar U-100 Insulin] 100 unit/mL (3 mL) insulin pen 6 unit subcut HS atorvastatin 20 mg tablet 20 mg PO HS tamsulosin 0.4 mg Capsule 0.4 mg PO QHS Qty: 30 0RF furosemide 80 mg Tablet 80 mg PO BID Qty: 60 0RF finasteride [Proscar] 5 mg Tablet 5 mg PO QAM Qty: 30 0RF acetaminophen-codeine 300-30 mg tablet 1 tablet PO Q6H PRN (Reason: pain, severe) bisacodyl [Laxative (bisacodyl)] 10 mg suppository 10 mg RECTAL DAILY PRN (Reason: constipation) Rx Instructions: If no results from the MOM. magnesium citrate [Citroma] Solution 296 ml PO .AM PRN (Reason: constipation) Rx Instructions: If no results after enema. Fleet Enema 19-7 gram/118 mL enema 118 ml RECTAL DAILY PRN (Reason: constipation) Rx Instructions: If no results 1 day after the bisacodyl suppository was administered. gabapentin 100 mg capsule 100 mg PO TID liraglutide 0.6 mg/0.1 mL (18 mg/3 mL) pen injector 1.2 mg subcut HS Rx Instructions: To start on 02/20/25. magnesium hydroxide [Milk of Magnesia] 400 mg/5 mL suspension 30 ml PO HS PRN (Reason: constipation) Rx Instructions: If no bowel movement in 3 days. vitamin B complex Capsule 1 cap PO DAILY Allergy Relief (loratadine) 10 mg capsule 10 mg PO DAILY PRN (Reason: itching) amlodipine 10 mg tablet 10 mg PO DAILY cinacalcet 90 mg PO DAILY acetaminophen 325 mg Tablet 650 mg PO Q4H PRN (Reason: Mild Pain (1-3) Or Fever) Qty: 60 0RF melatonin 3 mg tablet 3 mg PO HS baclofen 5 mg tablet 5 mg PO TID acetaminophen 325 mg tablet 650 mg PO TID tramadol 50 mg tablet 50 mg PO BID Incruse Ellipta 62.5 mcg/actuation blister with device 1 inh inhalation DAILY Combivent Respimat 20-100 mcg/actuation mist 1 puff inhalation Q6H PRN (Reason: shortness of breath or wheezing) losartan 100 mg tablet 100 mg PO DAILY PRN (Reason: blood pressure) Rx Instructions: give 100mg as needed for HTN give if SP>160 or DP >90 loperamide 2 mg capsule 2 mg PO Q4H PRN (Reason: loose stool) Rx Instructions: administer after each loose stool until symptoms controlled; do not exceed 8 mg per 24 hrs cyclobenzaprine 10 mg tablet 10 mg PO Q8H PRN (Reason: muscle spasm) sevelamer carbonate 0.8 gram Powder In Packet 0.8 g PO TIDWM pentoxifylline 400 mg tablet extended release 400 mg PO QPM Rx Instructions: must administer with a meal/food Date of admission: 03/15/25 14:17 Primary Care Provider: Radha Carrion Admitting Provider: Juan Carlos Gooden Attending physician on admission: Gregorio Siegel Condition: Stable
[2025-03-19] MEDS: EPOETIN ALFA-EPBX 4,000 UNITS/ML VIAL 4000 UNITS IV PUSH (11:49)
--- NOTE | 2025-03-19 12:02 | PCNFU ---
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 Nutrition recommendation: continue with current plan of care Last recorded weight is 78 kg. Bowel Motility: No BM recorded at this time Labs Reviewed:Hct:35.6, NA:136, GFR:10, BUN:49, Cr:5.6, Glu:112 Meds Noted: lasix, insulin, B complex Skin:unstageable to heel Additional Notes: Pt continues on a renal diet, FLOYD BID for wound healing. Intake 100% most meals. Pt to discharge today. Agree with orders Monitoring intakes, weights, labs, skin, supplement tolerance, plan of care Follow up in 5 days
--- NOTE | 2025-03-19 12:10 | P.PNNP_ITS ---
Progress Note: A&P Assessment and Plan (1) End stage renal disease: Code(s): N18.6 - End stage renal disease Status: Chronic Assessment and Plan: * HD today * continue T/T/S outpatient dialysis schedule while hospitalized * follow electrolytes, volume status, and clearance (2) Altered mental status: Code(s): R41.82 - Altered mental status, unspecified Status: Acute Assessment and Plan: * significant improvement noted if not resolved * as noted on presentation to ER/hospital * evaluation noted so far: * ABG with acidosis and mild CO2 retention (improvement noted with BiPAP) * CT of head without acute pathology * UA with possible/questionable infection * normal WBC * medication related (pain meds, baclofen, flexiril, gabapentin...etc) * hypercalcemia -- however, calcium level has been higher in the past without any neurological issues) * other(?) * improvement with BiPAP therapy noted * Pulmonary consulted for further assessment * hold sedating medications (would consider holding baclofen) * follow trend of mentation (3) Volume overload: Code(s): E87.70 - Fluid overload, unspecified Status: Acute Assessment and Plan: * as noted by admission CXR findings * however, relatively mild in comparison to previous admissions * fluid/ultrafiltration with dialysis to maintain euvolemia * in the past, this has been complicated by his COPD/reactive airway disease (4) Atrial fibrillation: Code(s): I48.91 - Unspecified atrial fibrillation Status: Chronic Assessment and Plan: * rate control strategy * restarted anticoagulation (Eliquis) last hospitalization * apparently previously held due to issues with GI bleeding (5) Hypercalcemia: Code(s): E83.52 - Hypercalcemia Status: Chronic Assessment and Plan: * doing better * noted on last couple of hospitalizations as well * not clear on etiology * sensipar/cinacalcet usually causes hypocalcemia * possibly due to prolonged immobilization/bed bound state? * adjusting calcium bath with dialysis to compensate (6) Anemia: Code(s): D64.9 - Anemia, unspecified Status: Chronic Assessment and Plan: * due to ESRD * Epogen with HD * follow trend of H/H (7) Essential (primary) hypertension: Code(s): I10 - Essential (primary) hypertension Status: Chronic Assessment and Plan: * reasonable control * fluid removal with HD helps to some degree * resume home medications * follow trend of hemodynamics (8) IDDM (insulin dependent diabetes mellitus): Status: Chronic Assessment and Plan: * follow accu-cheks * glycemic control per hospitalist Not opposed to discharge from renal perspective if otherwise medically stable. Will continue to follow. L Subjective Date/time seen: 03/19/25 12:10 Interval history: Follow-up for end stage renal disease on hemodialysis. Tolerating dialysis treatment at the time of my visit (seen on HD at 12:00PM); no apparent distress noted when seen; breathing/respiratory status as well as mentation stable if not better; no other issues/events overnight or earlier this morning. Exam 2 Narrative: General: elderly WD/WN male in NAD Heart: normal S1 and S2; no rub Lungs: coarse breath sounds at bases Abdomen: soft, nontender, nondistended, positive bowel sounds Extremities: no cyanosis or clubbing; trace edema Skin: war and dry Objective Data Vital Signs Vital Signs: Vital Signs Temp Pulse Resp BP Pulse Ox O2 Del Method FiO2 03/19/25 12:10 74 158/93 H 03/19/25 12:00 79 163/84 H 03/19/25 11:45 82 154/60 H 03/19/25 11:30 67 149/79 H 03/19/25 11:15 75 148/82 H 03/19/25 11:00 74 157/80 H 03/19/25 10:45 72 149/79 H 03/19/25 10:30 67 140/74 03/19/25 10:15 57 L 148/82 H 03/19/25 10:00 67 148/74 H 03/19/25 09:45 61 150/78 H 03/19/25 09:30 70 134/71 03/19/25 09:15 69 149/74 H 03/19/25 09:00 72 155/82 H 03/19/25 08:45 63 163/85 H 03/19/25 08:39 63 160/85 H 03/19/25 08:31 98.3 F 63 18 166/98 H 03/19/25 08:00 BiPAP 03/19/25 05:22 98.5 F 55 L 14 135/52 L 92 03/19/25 02:38 59 L 20 03/19/25 02:38 59 L 18 98 BiPAP 03/19/25 01:00 64 16 95 BiPAP 03/18/25 21:50 80 20 03/18/25 21:37 76 20 03/18/25 21:37 76 20 96 Room Air 21 03/18/25 21:25 96.8 F L 65 14 131/87 96 03/18/25 21:15 70 Intake/Output Intake/Output: Intake & Output 03/16/25 03/17/25 03/18/25 03/19/25 23:59 23:59 23:59 23:59 Intake Total 1240 890 550 Output Total 0 2800 0 3000 Balance 0 -1560 890 -2450 Meds/Results Medications: Active Medications Generic Name Dose Route Start Last Admin Trade Name Freq PRN Reason Stop Dose Admin Acetaminophen 650 mg 03/14/25 17:00 03/19/25 13:00 Acetaminophen 325 Mg Tablet PO 650 mg TID DAVID Administration Acetaminophen 650 mg 03/14/25 14:27 03/18/25 21:59 Acetaminophen 325 Mg Tablet PO 650 mg Q4H PRN Administration Mild Pain (1-3) Or Fever Amlodipine Besylate 10 mg 03/14/25 14:40 03/19/25 09:00 Amlodipine Besylate 10 Mg Tablet PO Not Given DAILY DAVID Aspirin 81 mg 03/14/25 14:40 03/19/25 09:00 Aspirin 81 Mg Enteric Tablet PO Not Given DAILY DAVID Atorvastatin Calcium 20 mg 03/14/25 21:00 03/18/25 21:15 Atorvastatin 20 Mg Tablet PO 20 mg HS DAVID Administration Baclofen 5 mg 03/14/25 17:00 03/19/25 13:00 Baclofen 5 Mg Tablet PO 5 mg TID DAVID Administration Bisacodyl 10 mg 03/14/25 14:27 Bisacodyl 10 Mg Suppository RECTAL DAILY PRN constipation Carvedilol 25 mg 03/14/25 21:00 03/19/25 09:00 Carvedilol 25 Mg Tablet PO Not Given Q12HR DAVID Cinacalcet 90 mg 03/14/25 14:40 03/19/25 09:00 Cinacalcet 30 Mg Tablet PO Not Given DAILY DAVID Cyclobenzaprine HCl 10 mg 03/14/25 14:27 03/19/25 12:54 Cyclobenzaprine Hcl 10 Mg Tablet PO 10 mg Q8H PRN Administration muscle spasm Dextrose 12.5 gm 03/16/25 08:39 Dextrose 50% 25 Gm/50 Ml Syringe IV PUSH PRN PRN Hypoglycemia Protocol Epoetin David-epbx 4,000 units 03/19/25 18:00 03/19/25 11:49 Epoetin David-Epbx 4,000 Units/Ml Vial IV PUSH 03/19/25 18:01 4,000 units ONCE ONE Administration Finasteride 5 mg 03/14/25 14:40 03/19/25 09:00 Finasteride 5 Mg Tablet PO Not Given QAM DAVID Furosemide 80 mg 03/14/25 17:00 03/19/25 09:00 Furosemide 80 Mg Tablet PO Not Given BID DAVID Gabapentin 100 mg 03/14/25 17:00 03/19/25 13:00 Gabapentin 100 Mg Capsule PO 100 mg TID DAVID Administration Glucagon 1 mg 03/16/25 08:39 Glucagon For Inj 1 Mg Vial IM PRN PRN Hypoglycemia Protocol Glucose 15 gm 03/16/25 08:39 Glucose Oral Gel 15 Gm Of Glucse In 37.5 Gm Tube PO PRN PRN Hypoglycemia Protocol Albumin Human 50 mls @ 999 mls/hr 03/14/25 09:25 Albutein IVPB 04/13/25 09:24 Q10M PRN HYPOTENSION Dextrose 1,000 mls @ 100 mls/hr 03/16/25 08:39 Dextrose 5% 1,000 Ml IVPB PRN PRN Hypoglycemia Protocol Insulin Aspart 4 units 03/14/25 17:00 03/16/25 08:42 Insulin Aspart (*Bkc) 100 Units/Ml SUB-Q Not Given ACINSULIN [facility] Insulin Aspart 2 - 5 units 03/17/25 17:00 03/19/25 12:45 Insulin Aspart (*Bkc) 100 Units/Ml SUB-Q Not Given TIDWM [facility] Protocol Insulin Glargine 6 units 03/14/25 21:00 03/15/25 20:00 Insulin Glargine (*Bkc) 100 Units/Ml SUB-Q Not Given HS [facility] Levalbuterol HCl 0.63 mg 03/14/25 20:00 03/19/25 08:53 Levalbuterol Neb 1.25 Mg/3 Ml INHALATION Not Given Q6HRT [facility] Loperamide HCl 2 mg 03/14/25 14:27 Loperamide Hcl 2 Mg Capsule PO Q4H PRN loose stool Loratadine 10 mg 03/14/25 14:50 03/19/25 09:00 Loratadine 10 Mg Tablet PO Not Given DAILY DAVID Loratadine 10 mg 03/14/25 14:27 Loratadine 10 Mg Tablet PO DAILY PRN itching Losartan Potassium 100 mg 03/14/25 16:09 Losartan Potassium 100 Mg Tablet PO DAILY PRN blood pressure Magnesium Citrate 296 ml 03/14/25 14:27 Magnesium Citrate 300 Ml Btl PO QAM PRN constipation Magnesium Hydroxide 30 ml 03/14/25 14:27 Magnesium Hydroxide Susp 30 Ml Udc PO HS PRN constipation Melatonin 3 mg 03/14/25 21:00 03/18/25 21:15 Melatonin 3 Mg Tablet PO 3 mg HS DAVID Administration Miscellaneous Information 1 each 03/15/25 00:01 03/18/25 00:54 Liraglutide Is Nonform; Can Pt Use From Home? XX 04/14/25 00:00 Not Given CLARIFY DAVID Morphine Sulfate 1 mg 03/16/25 15:17 03/19/25 12:54 Morphine Sulfate (*Crx) 2 Mg/Ml Inj IV PUSH 1 mg Q8H PRN Administration pain 4-10 while npo Non-Formulary Medication 1.2 mg 03/14/25 21:00 Liraglutide SUB-Q 04/13/25 20:59 HS DAVID Pentoxifylline 400 mg 03/14/25 18:00 03/18/25 17:56 Pentoxifylline 400 Mg Tabcr PO 400 mg QPM DAVID Administration Sevelamer Carbonate 0.8 gm 03/14/25 17:00 03/19/25 12:45 Sevelamer Carbonate 0.8 Gm Oral Powder Packet PO Not Given TIDWM DAVID Tamsulosin HCl 0.4 mg 03/14/25 21:00 03/18/25 21:15 Tamsulosin Hcl 0.4 Mg Capsule PO 0.4 mg QHS DAVID Administration Tramadol HCl 50 mg 03/14/25 17:00 03/19/25 09:00 Tramadol Hcl (*Crx) 50 Mg Tablet PO Not Given BID DAVID Umeclidinium [place] 1 puff 03/15/25 08:00 03/19/25 08:53 Umeclidinium [place] 62.5 Mcg Ellipta INHALATION Not Given DAILYRT DAVID Vitamin B Complex 1 cap 03/14/25 14:50 03/19/25 09:00 Vitamin B Complex Capsule PO Not Given DAILY [facility] Radiology Results: ITS Impressions Head CT 03/14/25 07:24 IMPRESSION: 1. 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 No acute intracranial process. 2. Age-related changes including moderate diffuse volume loss and moderate scattered white matter hypoattenuation consistent with chronic small vessel ischemic disease. 3. Sinus disease. Chest X-Ray 03/14/25 07:59 IMPRESSION: 1. Pulmonary vascular congestion with no other acute cardiopulmonary disease. Modified Barium Swallow 03/17/25 15:50 IMPRESSION: Patient tolerated regular consistency oral feedings in the upright position. Please correlate with speech pathologist findings and specific feeding recommendations. Labs Labs: Laboratory Tests 03/19/25 06:37 03/19/25 06:37 Calcium 10.1 Phosphorus 4.6 H Magnesium 2.3 Albumin 3.7
[2025-03-19] MEDS: CYCLOBENZAPRINE HCL 10 MG TABLET PO (12:54)
[2025-03-19] MEDS: MORPHINE SULFATE (*CRX) 2 MG/ML INJ 1 MG IV PUSH (12:54)
[2025-03-19] MEDS: BACLOFEN 5 MG TABLET PO (13:00)
[2025-03-19] MEDS: GABAPENTIN 100 MG CAPSULE PO (13:00)
[2025-03-19] MEDS: ACETAMINOPHEN 325 MG TABLET 650 MG PO (13:00)
== END 2025-03-19 14:45 | DRG 291 ==
LOC: ANHED 07:18 → ANH3MEDSUR 09:20
PROVIDERS: Internal Medicine Nephrology; Student in an Organized Health Care Education/Training Program; Admitting Provider General Practice; Emergency Provider Emergency Medicine; PCP Family Medicine; Visit Provider Family Medicine
DX: I13.2 Hypertensive heart and chronic kidney disease with heart failure and with stage 5 chronic kidney disease, or end stage renal disease (principal); N18.6 End stage renal disease; I48.20 Chronic atrial fibrillation, unspecified; I50.9 Heart failure, unspecified; R06.89 Other abnormalities of breathing; I25.10 Atherosclerotic heart disease of native coronary artery without angina pectoris; J44.9 Chronic obstructive pulmonary disease, unspecified; D63.1 Anemia in chronic kidney disease; E11.22 Type 2 diabetes mellitus with diabetic chronic kidney disease; E11.51 Type 2 diabetes mellitus with diabetic peripheral angiopathy without gangrene; E11.42 Type 2 diabetes mellitus with diabetic polyneuropathy; E78.5 Hyperlipidemia, unspecified; E83.52 Hypercalcemia; E87.70 Fluid overload, unspecified; L89.619 Pressure ulcer of right heel, unspecified stage; N40.0 Benign prostatic hyperplasia without lower urinary tract symptoms; M54.2 Cervicalgia; M54.9 Dorsalgia, unspecified; G89.29 Other chronic pain; G40.909 Epilepsy, unspecified, not intractable, without status epilepticus; G47.33 Obstructive sleep apnea (adult) (pediatric); Z20.822 Contact with and (suspected) exposure to COVID-19; Z99.2 Dependence on renal dialysis; Z91.199 Patient's noncompliance with other medical treatment and regimen due to unspecified reason; Z79.4 Long term (current) use of insulin; Z79.82 Long term (current) use of aspirin; Z95.0 Presence of cardiac pacemaker; Z95.1 Presence of aortocoronary bypass graft; Z87.891 Personal history of nicotine dependence
CPT/HCPCS: 36415; 36600; 70450; 71045; 74230; 80048; 80053; 80069; 80307; 81001; 82077; 82140; 82375; 82805; 82948; 83050; 83605; 83735; 85018; 85025; 85027; 87040; 87086; 87637; 87641; 92610; 92611; 93005; 94002; 94003; 94640; 94762; 96360; 97110; 97162; 97165; 97530; 97535; 99285; A9270; G0257; G0378; J1815; J2270; J7030; J7042; Q5105

== ENCOUNTER 2025-03-22 20:57 | Inpatient (IN) | payer MEDICARE, OTHER, SELFPAY ==
--- NOTE | ~2025-03-22 | CT_ITS ---
Noncontrast CT scan of the cervical spine Technique: Multiple contiguous axial [address] images of the cervical spine were obtained and rec onstructed in 2D sagittal and coronal planes on the acquisition scanner. Dose reduction technique was used on this scan by utilizing automated exposure control, adjustment of the mA and/or kV according to patient size. The dose-length product (DLP) was 552.27 mGy-cm. Clinical History: Pain COMPARISON: 02/21/2025 Findings: No acute fracture or subluxation evident. There is a chronic nonunited fracture versus fail ure of fusion at the anterior arch of C1, stable from prior exam. There is also spina bifida occulta the posterior arch of C1, also unchanged. Osseous alignment is stable prior exam. There is stable ext ensive erosive/destructive change of the C4 and C5 vertebral bodies, which could be due to severe deg enerative spondylosis versus other inflammatory arthropathies. There is an essential erosive change o f the inferior aspect of C3, also unchanged. There is additional severe degenerative disc narrowing a t C5-C6 and C6-C7. There is severe right neural foraminal narrowing at C2-C3 with right facet arthropathy. There is bila teral neural foraminal narrowing at C3-C4 with moderate facet arthropathy. Mild central canal stenosis with disc bulge present. There is, mild bilateral neural foraminal narrow ing at C4-C5. There is disc bulge with probable mild canal stenosis. There is bilateral neural forami nal narrowing at C5-C6, with left facet arthropathy. There is right neural foraminal narrowing at C6- C7. Impression: No acute fracture or subluxation of the cervical spine. Stable extensive erosive/destructive changes of the C4and C5 vertebral bodies in particular, with add itional erosive change at the inferior aspect of C3 vertebral body, most likely related to severe chr onic degenerative spondyloarthropathy versus possibly other inflammatory/erosive arthropathy. Stable advanced degenerative spondylitic changes in the cervical spine otherwise, as above. Reviewed, dictated and finalized at [facility] Impression: No acute fracture or subluxation of the cervical spine. Stable extensive erosive/destructive changes of the C4and C5 vertebral bodies i n particular, with additional erosive change at the inferior aspect of C3 verte bral body, most likely related to severe chronic degenerative spondyloarthropat hy versus possibly other inflammatory/erosive arthropathy. Stable advanced degenerative spondylitic changes in the cervical spine otherwis e, as above.
--- NOTE | ~2025-03-22 | XR_ITS ---
Portable chest x-ray Comparison: 03/14/2025 Clinical History: Dyspnea Findings: Possible left basilar haziness. Right lung clear. Cardiomediastinal silhouette is stable, super huan. Bones and soft tissues are unremarkable. Impression: Possible left lower lobe pneumonia. Loop recorder. Reviewed, dictated and finalized at location . Impression: Possible left lower lobe pneumonia. Loop recorder.
--- NOTE | ~2025-03-22 | CT_ITS ---
CT head without contrast Indication: Head injury COMPARISON: 03/14/2025 Technique: Serial scans were obtained through the brain without the administration of contrast. Dose reduction technique was used on this scan by utilizing automated exposure control and iterative recon struction technique. The dose-length product (DLP) was 1059.33 mGy-cm. Findings: There is no evidence of intracranial hemorrhage, mass lesion, or acute infarct. The ventri cles and subarachnoid spaces are dilated, consistent with mild atrophy. Low attenuation regions are seen within the periventricular white matter bilaterally, likely representing changes from chronic mi crovascular ischemic disease. There is no evidence of edema, mass effect or midline shift. Right max illary sinus disease present. The remaining visualized paranasal sinuses and mastoid air cells are cl ear. Impression: No intracranial hemorrhage, mass, or acute infarct. Atrophy and chronic white matter changes, as above. Right maxillary sinus disease. Reviewed, dictated and finalized at [facility]. Impression: No intracranial hemorrhage, mass, or acute infarct. Atrophy and chronic white matter changes, as above. Right maxillary sinus disease.
[2025-03-22 20:59] VITALS: BP 155/82; PULSE 65; RESP 18; TEMP 36.6; O2SAT 98
--- NOTE | 2025-03-22 21:15 | ECG_ITS ---
Test Date: 2025-03-22 21:31:35 Measurements Intervals [place] Rate: 61 P: 0 MT: 0 QRS: -76 QRSD: 163 T: -33 QT: 455 QTc: 460 Interpretive Statements ATRIAL FIBRILLATION WITH ABERRANT CONDUCTION OR VENTRICULAR PREMATURE COMPLEXES RIGHT BUNDLE BRANCH BLOCK LEFT ANTERIOR FASCICULAR BLOCK BASELINE ARTIFACT- V3 ABNORMAL ECG Compared to ECG 03/14/2025 06:27:26 NO SIGNIFICANT CHANGE Electronically Signed On 03-23-2025 06:15:45 CDT by Chiki Parra D.O.
[2025-03-22 21:34] VITALS: BP 143/60; PULSE 67; RESP 18; O2SAT 97
[2025-03-22 21:37] LABS: Alveolar/Arterial O2 Gradient 98.9 mmHg; Base Excess ABG 7.1 mEq/l (+/-2.0); Fractional Inspired Oxygen 36 %; HCO3 ABG 32.4 mEq/l (22.0-26.0); Oxygen Saturation ABG 97.7 % (95.0-100.0); Oxyhemoglobin 96.8 % THb (90.0-100.0); PCO2 ABG 49.5 mmHg (35.0-45.0); PO2 ABG 100.4 mmHg (80.0-100.0); PO2 FiO2 Ratio Arterial Blood 2.79 %; Total Hemoglobin 10.9 g/dL (12.0-18.0); pH ABG 7.434 (7.350-7.450)
[2025-03-22 21:39] LABS: Device NASAL CANNULA; Modified Allen's Test Pass; Site Drawn RIGHT RADIAL
[2025-03-22 22:00] LABS: Basophils Absolute Auto 0.1 K/mm3 (0.0-0.1); Eosinophils Absolute Auto 0.1 K/mm3 (0-0.3); Eosinophils Percent Auto 2.7 % (0-4.4); Hematocrit 34.1 % (42.0-52.0); Hemoglobin 10.2 g/dL (14.0-18.0); Immature Granulocyte Absolute 0.02 K/mm3 (0.00-0.031); Immature Granulocyte Percent A 0.4 % (0-0.5); Lymphocytes Absolute Auto 0.54 K/mm3 (0.9-3.2); Lymphocytes Percent Auto 10.5 % (18.3-44.2); Mean Corpuscular HGB Conc 29.9 g/dl (32-36); Mean Corpuscular Hemoglobin 26.6 pg (26-34); Mean Platelet Volume 10.9 fl (7.4-10.4); Monocytes Absolute Auto 0.7 K/mm3 (0.1-0.6); Neutrophils Absolute Auto 3.7 K/mm3 (1.3-6.7); Neutrophils Percent Auto 72.4 % (45.5-73.1); Platelet Count Result 180 k/mm3 (150-375); Red Blood Count 3.83 M/mm3 (4.6-6.20); Red Cell Distribution Width 17.8 % (11.5-14.5); White Blood Count 5.2 K/mm3 (4.5-10.0)
[2025-03-22 22:09] LABS: Alanine Aminotransferase 9 U/L (6-50); Albumin Level 3.5 g/dL (3.5-5.1); Alkaline Phosphatase 57 U/L (38-126); Anion Gap 7 mmol/L (4-12); Aspartate Amino Transferase 15 U/L (17-59); Bilirubin,Total 0.3 mg/dL (0.2-1.3); Blood Urea Nitrogen 30 mg/dL (9-20); Calcium 9.4 mg/dL (8.4-10.2); Carbon Dioxide 35 mmol/L (22-30); Chloride 89 mmol/L (98-107); Estimated CRCL calculation 13 ml/min; Estimated Glomerular Filt Rate 12; Glucose 120 mg/dL (65-110); Potassium 4.1 mmol/L (3.4-5.0); Sodium 131 mmol/L (137-145)
[2025-03-22 22:12] LABS: INR 1.1; Prothrombin Time 14.4 Seconds (11.1-14.7)
[2025-03-22 22:13] LABS: Partial Thromboplastin Time 35.8 Seconds (22.3-36.8)
[2025-03-22 22:17] LABS: Anisocytosis 1+; Hypochromasia 1+; Platelet Estimate Adequate (Adequate)
[2025-03-22 22:19] LABS: Schistocytes None Seen
--- OUTSIDE RECORDS SUMMARY | 2025-03-22 22:22 | XMS_ITS | Encounter Summary ---
Author Organization [facility] Health Address [address] [place] [address] Care Team Providers Care Director Outcomes Name Role Phone Mariza Carrion MD Primary Care Provider Encounter Details Date Type Department Care Team (Late Contact Info) Description 06/03/2018 [facility] Outpatient Visit [facility] [address] [place] [address] [place] [id number] [facility] [address] [place] [id number] Social History Tobacco Use Types Packs/Day [...] Info) Description 03/23/2025 8:00 AM CDT Appointment [facility] Health Vascular Services [address] [facility] [address], [address] [place] [address] [place] [id number] [facility] [address] [place] [phone] documented as of this encounter Visit Diagnoses Not on filedocumented in this encounter Care Teams Director Outcomes Relationship Specialty Start Date End Date Mariza Carrion MD [address] [place] [phone] PCP - General Family Medicine 08/26/18 documented as of this encounter
--- OUTSIDE RECORDS SUMMARY | 2025-03-22 22:22 | XMS_ITS ---
Author Organization [facility] Address [address] [place] [id number] Care Team Providers Care Mva Still Operator Name Role Phone Efren Hoyos MD Unavailable Dank Hicks MD Unavailable Mariza Carrion MD Primary Care Provider Dialysis [...] POCT HEMOGLOBIN A1C Routine 11/24/2024 10:01 AM PACKING HOUSE SUPERVISOR Type 2 diabetes mellitus with hyperglycemia, with long-term current use of insulin (CMS/HCC) EGFR Routine 10/25/2024 5:48 AM PACKING HOUSE SUPERVISOR HEPATITIS PANEL, ACUTE Routine 10/23/2024 2:45 PM PACKING HOUSE SUPERVISOR HM DIABETES EYE EXAM Routine 08/13/2024 9:40 AM CDT ALBUMIN CREATININE RATIO, URINE Routine 03/10/2024 8:46 AM CDT Type 2 diabetes mellitus with hyperglycemia, with long-term current use of insulin (CMS/HCC) LIPID PANEL Routine 03/03/2024 9:29 AM CDT Type 2 diabetes mellitus with hyperglycemia, with long-term current use of insulin ([facility]) Hyperlipidemia associated with type 2 diabetes mellitus ([facility]) CT ABDOMEN PELVIS WO CONTRAST Schedule Routine, Read Routine (OP Routine) 12/05/2021 11:53 AM PACKING HOUSE SUPERVISOR End stage renal disease (HCC) from Last [...] hyperglycemia, with long-term current use of insulin ([facility]) Use to test glucose 5 times daily 450 each 2 04/03/20 18 Active lancets (freestyle) 28 gauge miscIndications:T ype 2 diabetes mellitus with hyperglycemia, with long-term current use of insulin ([facility]) Use to test glucose 5 times [...] hyperglycemia, with long-term current use of insulin ([facility]) Change sensor every 14 days [...] 12/09/2019 Assessment & Plan (09/03/2023 9:28 AM PACKING HOUSE SUPERVISOR): Chronic problem. [facility]: //Saturdays. LUE fistula. Assessment & Plan (03/05/2023 9:59 AM CDT): Chronic problem. [facility]: //Saturdays. LUE fistula. Hyperlipidemia associated with type 2 diabetes fouzia victoria 05/22/2019 Assessment & Plan (11/24/2024 10:10 AM PACKING HOUSE SUPERVISOR): Chronic problem. Controlled on current Atorvastatin 20mg. Last lipid panel: 03/03/24 LDL=33, TG=75. Assessment & Plan (03/03/2024 8:45 AM CDT): Chronic problem. Controlled on current Atorvastatin 20mg. Last lipid panel: 03/05/23 LDL=57, XM=647. Will update labs today. Does not mychart. Verified phone #/address to contact re: results. Assessment & Plan (09/03/2023 9:28 AM PACKING HOUSE SUPERVISOR): Chronic problem. Controlled on current Atorvastatin 20mg. Last lipid panel: 03/05/23 LDL=57, MV=221. Assessment & Plan (03/05/2023 9:53 AM CDT): Chronic problem. Controlled on current Atorvastatin 20mg. Last lipid panel: 12/05/21 LDL=36, RQ=866. Will update labs today. Verified phone #/address to contact re: results. Assessment & Plan (11/02/2022 2:47 PM PACKING HOUSE SUPERVISOR): Chronic, well controlled Low fat Low cholesterol [...] Lipitor Assessment & Plan (09/07/2020 2:26 PM PACKING HOUSE SUPERVISOR): Goal of treatment , LDL cholesterol less [...] panel Assessment & Plan (12/09/2019 2:03 PM PACKING HOUSE SUPERVISOR): Very high TG Add Vascepa Assessment & [...] statin therapy Coronary artery disease invo lving kenaitze coronary artery of kenaitze heart without angina pectoris 10/04/2017 Hx of CABG 10/04/2017 Class 2 severe obesity due t o excess calories with serious comorbidity and body mass index (BMI) of 38.0 to 38.9 in adult 05/22/2017 Assessment & Plan (10/24/2018 12:58 PM PACKING HOUSE SUPERVISOR): Making progress with diet efforts. Continue Assessment & Plan (02/08/2018 11:01 AM CDT): Importance of following diet and exercising discussed. Hypertension associated with diabetes 05/22/2017 Assessment & Plan (11/24/2024 10:11 AM PACKING HOUSE SUPERVISOR): Chronic problem. Controlled on current losartan 100mg daily, amlodipine 10mg daily Assessment & Plan (03/03/2024 8:45 AM CDT): Chronic problem. BP elevated upon arrival. Controlled on current Carvedilol 25mg bid, losartan 100mg daily. No changes at this time. Will update labs today. Does not mychart. Verified phone #/address to contact re: results. Assessment & Plan (09/03/2023 9:28 AM PACKING HOUSE SUPERVISOR): Chronic problem. BP elevated upon arrival. Controlled [...] renal Assessment & Plan (10/24/2018 12:57 PM PACKING HOUSE SUPERVISOR): Controlled. Continue current medication plan and follow up with cardiology Assessment & Plan (06/18/2018 2:30 PM CDT): BP controlled on current medication plan. Continue follow up with nephrology Assessment & Plan (02/08/2018 11:00 AM CDT): Continue same medication Assessment & Plan (12/11/2017 10:24 AM PACKING HOUSE SUPERVISOR): Goal blood pressure is less than 140/85 [...] mellitus Assessment & Plan (11/24/2024 10:16 AM PACKING HOUSE SUPERVISOR): Chronic problem, controlled on current regimen. 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 Assessment & Plan (09/03/2023 9:27 AM PACKING HOUSE SUPERVISOR): Chronic problem, controlled on current regimen. 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 Assessment & Plan (03/05/2023 10:13 AM CDT): Chronic problem, controlled on current regimen. 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 Will update labs today. Verified phone #/address to contact re: results. Assessment & Plan (11/02/2022 2:43 PM PACKING HOUSE SUPERVISOR): Well controlled, with risk of hypoglycemia Insuli [...] Ross Assessment & Plan (09/07/2020 2:26 PM PACKING HOUSE SUPERVISOR): Hba1c was Lab Results Component Value Date [...] Trulicity. Assessment & Plan (12/09/2019 2:03 PM PACKING HOUSE SUPERVISOR): Your Hba1c today was: Lab Results Component Value Date HGBA1C 9.3 12/09/2019 meaning a 3 month average sugar of : 224 Your goal hba1c is under 7.0 to prevent intermediate frame tender diabetes complications ( eye , kidney [...] hypoglycemia. Assessment & Plan (10/24/2018 1:00 PM PACKING HOUSE SUPERVISOR): Stable BG pattern 100-140 reported since last adjustment to plan. No change today. BG goals reviewed. Advised to lower Lantus by 2 units if FBG are < 100 x 2 days/wk. For planned activity, reduce Humalog dose by 1/2 at preceding meal. Assessment & Plan (09/19/2018 11:11 AM PACKING HOUSE SUPERVISOR): Your Hba1c today was: Lab Results Component Value Date HGBA1C 5.1 09/19/2018 meaning a 3 month average sugar of : 81 Your goal hba1c is under 7.0 to prevent intermediate frame tender diabetes complications ( eye , kidney [...] time. Assessment & Plan (12/11/2017 10:47 AM PACKING HOUSE SUPERVISOR): Hba1c was .5.4 Today, 1800 calorie, consistent [...] Lantus by 5 more unit. [facility] & Plan (05/22/2017 11:37 AM CDT): [...] drink = 0.6 oz pur e alcohol) [facility] Utilities Answer Date Recorded In the past 12 months has [employer], gas, oil, or water [employer] threatened to shut off services in your [...] week 10/23/2024 How often do you attend [facility] or restorationism services? Never 10/23/2024 Do you belong to [...] time in the past 12 m [facility], were you homeless or living in a group home (including now)? No 10/23/2024 Personal Safety Answer Date Recorded Have you ever been in or are you currently in a harmful physical or emotional relationship or is someone making you feel afraid or unsafe? Denies 10/22/2024 Sex and Gender Information Value Date Recorded Sex Assigned at Not on file Legal Sex Male 7:27 PM PACKING HOUSE SUPERVISOR Gender Identity Not on file Sexual Orientation Not on file Last Filed Vital Signs Vital Sign Reading Time Taken Comments Blood Pressure 102/58 11/24/2024 9:58 AM PACKING HOUSE SUPERVISOR Pulse 75 11/24/2024 9:58 AM PACKING HOUSE SUPERVISOR Temperature 36.3 C (97.3 F) 10/25/2024 2:15 PM PACKING HOUSE SUPERVISOR Respiratory Rate 20 11/24/2024 9:58 AM PACKING HOUSE SUPERVISOR Oxygen Saturation 100% 10/25/2024 1:15 PM PACKING HOUSE SUPERVISOR Inhaled Oxygen Concentration - - Weight 91.3 kg (201 lb 4.5 oz) 10/22/2024 8:29 P M PACKING HOUSE SUPERVISOR Height 170.2 cm (5' 7.01) 11/24/2024 9:58 AM CS T Body Mass Index 31.52 10/22/2024 8:29 PM PACKING HOUSE SUPERVISOR Results * DEVICE CHECK - IN OFFICE [...] * POCT hemoglobin A1c (11/24/2024 10:01 AM PACKING HOUSE SUPERVISOR) Hemoglobin A1C, POC 4.9 4.0 - 5.6 % Blood 11/24/2024 10:0 1 AM PACKING HOUSE SUPERVISOR us Bertha Pinto NP POINT OF CARE TEST ORDERA BLES Final Result * (ABNORMAL) eGFR (10/25/2024 5:48 AM PACKING HOUSE SUPERVISOR) eGFR 9(L) >=60 mL/min/1. 73 m2 Comment: [...] last reviewed 2021. Blood 10/25/2024 5:48 AM PACKING HOUSE SUPERVISOR 10/25/2024 6:03 AM PACKING HOUSE SUPERVISOR Raisa Scherer NP LAB BLOOD ORDERABLES Jeaneth l Result [facility] [id number] Department [place] [address] * Hepatitis panel, acute Blood (10/23/2024 2:45 PM PACKING HOUSE SUPERVISOR) Hep A IgM Nonreactive Nonreactive Comment: Interpretive [...] [facility] Blood 10/23/2024 2:45 PM PACKING HOUSE SUPERVISOR 10/23/2024 2:46 PM PACKING HOUSE SUPERVISOR Sherrill Christianson MD LAB MICROBIOLOGY - GENERAL ORDERABLES Final Result Performing Organization Address City/[facility] Co de Phone Number [facility] [place] [id number] [place] [address] * (ABNORMAL) DIABETES EYE EXAM (08/13/2024 9:40 AM CDT) Historical Provider [facility] Edited Result - Final * (ABNORMAL) Albumin Creatinine Ratio, Urine (03/10/2024 8:46 AM CDT) Albumin Ur 3,169.5 mg/L Comment: Interpretive Data No reference range established. Current interpretive data was last revised 2019. Creatinine Ur 47.7 mg/dL [facility] Comment: Interpretive Data No reference range established. Current interpretive data was last revised 2019. Albumin Creatinine Ratio, Ur 6,645(H) 1 - 29 mg/g [facility] Urine 03/10/2024 8:46 AM CDT 03/11/2024 9:11 AM CDT Bertha Pinto NP LAB URINE ORDERABLES Jeaneth l Result Performing Organization Address [facility] Co de Phone Number NIDIA [id number] Department [place] [address] * (ABNORMAL) Lipid panel (03/03/2024 9:29 AM [...] CDT 03/03/2024 4:40 PM CDT us Bertha Pinot NP LAB BLOOD ORDERABLES Jeaneth l Result [address] [id number] [place] [address] * CT Abdomen Pelvis WO Contrast (12/05/2021 11:53 AM PACKING HOUSE SUPERVISOR) Anatomical Region Laterality Modality Body N/A Computed Tomogra phy 12/05/2021 12:0 4 PM PACKING HOUSE SUPERVISOR Impressions 12/05/2021 12:04 PM PACKING HOUSE SUPERVISOR Bone windows show no suspicious lytic or blastic lesions. IMPRESSION: 1. 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 2. 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 Electronically signed by: Ryan Cameron M.D. Narrative 12/05/2021 12:04 PM PACKING HOUSE SUPERVISOR EXAMINATION: Computed tomography of the abdomen/pelvis without [...] adeniform shape. There is atrophy of both kenaitze kidneys. Adjacent fat stranding is likely related [...] adeniform shape. There is atrophy of both kenaitze kidneys. Adjacent fat stranding is likely related [...]
[2025-03-22 22:23] LABS: Lipase 17 U/L (23-300); Magnesium 2.2 mg/dL (1.6-2.3)
--- OUTSIDE RECORDS SUMMARY | 2025-03-22 22:23 | XMS_ITS | Referral Summary ---
Author Organization [facility] Address [address] [place] [phone] Care Team Providers Care Human Services Worker Name Role Phone Efren Hoyos MD Unavailable Dank Hicks MD Unavailable [phone] Mariza Carrion MD Primary Care Provider Encounters Date Type Department Care Team Description 01/21/2025 9:30 AM CDT Ancillary Procedure [facility] Cardiology [address] [place] [address] [address] [place] [phone] Cardiac pacemaker in situ; Asystole (HCC); Syncope and collapse; Symptomatic bradycardia 01/19/2025 Telephone [facility] Cardiology [address] [place] [address] [place] [phone] Dank Hicks MD 01/05/2025 Telephone [facility] Diabetes and Endocrinology [address] [place] [phone] Bertha Pinto NP Release of Information 12/30/2024 Telephone [facility] Cardiology [address] [place] [address] [place] [phone] Dank Hicks MD 12/22/2024 Orders Only [facility] Cardiology [address] [place] [address] [address] [place] [phone] Curt Grady MD from Last 3 [...] use of insulin ([facility]) Change sensor every 14 days 9 [...] 12/09/2019 Assessment & Plan (09/03/2023 9:28 AM TENT ASSEMBLER): Chronic problem. [facility] [place]: //Saturdays. LUE fistula. Assessment & Plan (03/05/2023 9:59 AM CDT): Chronic problem. [facility] [place]: //Saturdays. LUE fistula. Hyperlipidemia associated with type 2 diabetes fouzia victoria 05/22/2019 Assessment & Plan (11/24/2024 10:10 AM TENT ASSEMBLER): Chronic problem. Controlled on current Atorvastatin 20mg. Last lipid panel: 03/03/24 LDL=33, TG=75. Assessment & Plan (03/03/2024 8:45 AM CDT): Chronic problem. Controlled on current Atorvastatin 20mg. Last lipid panel: 03/05/23 LDL=57, UU=253. Will update labs today. Does not mychart. Verified phone #/address to contact re: results. Assessment & Plan (09/03/2023 9:28 AM TENT ASSEMBLER): Chronic problem. Controlled on current Atorvastatin 20mg. Last lipid panel: 03/05/23 LDL=57, NR=723. Assessment & Plan (03/05/2023 9:53 AM CDT): Chronic problem. Controlled on current Atorvastatin 20mg. Last lipid panel: 12/05/21 LDL=36, LS=117. Will update labs today. Verified phone #/address to contact re: results. Assessment & Plan (11/02/2022 2:47 PM TENT ASSEMBLER): Chronic, well controlled Low fat Low cholesterol [...] Lipitor Assessment & Plan (09/07/2020 2:26 PM TENT ASSEMBLER): Goal of treatment , LDL cholesterol less [...] panel Assessment & Plan (12/09/2019 2:03 PM TENT ASSEMBLER): Very high TG Add Vascepa Assessment & [...] statin therapy Coronary artery disease invo lving [place] coronary artery of [place] heart without angina pectoris 10/04/2017 Hx of CABG 10/04/2017 Class 2 severe obesity due t o excess calories with serious comorbidity and body mass index (BMI) of 38.0 to 38.9 in adult 05/22/2017 Assessment & Plan (10/24/2018 12:58 PM TENT ASSEMBLER): Making progress with diet efforts. Continue Assessment & Plan (02/08/2018 11:01 AM CDT): Importance of following diet and exercising discussed. Hypertension associated with diabetes 05/22/2017 Assessment & Plan (11/24/2024 10:11 AM TENT ASSEMBLER): Chronic problem. Controlled on current losartan 100mg daily, amlodipine 10mg daily Assessment & Plan (03/03/2024 8:45 AM CDT): Chronic problem. BP elevated upon arrival. Controlled on current Carvedilol 25mg bid, losartan 100mg daily. No changes at this time. Will update labs today. Does not mychart. Verified phone #/address to contact re: results. Assessment & Plan (09/03/2023 9:28 AM TENT ASSEMBLER): Chronic problem. BP elevated upon arrival. Controlled [...] renal Assessment & Plan (10/24/2018 12:57 PM TENT ASSEMBLER): Controlled. Continue current medication plan and follow up with cardiology Assessment & Plan (06/18/2018 2:30 PM CDT): BP controlled on current medication plan. Continue follow up with nephrology Assessment & Plan (02/08/2018 11:00 AM CDT): Continue same medication Assessment & Plan (12/11/2017 10:24 AM TENT ASSEMBLER): Goal blood pressure is less than 140/85 [...] mellitus Assessment & Plan (11/24/2024 10:16 AM TENT ASSEMBLER): Chronic problem, controlled on current regimen. 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 Assessment & Plan (09/03/2023 9:27 AM TENT ASSEMBLER): Chronic problem, controlled on current regimen. 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 Assessment & Plan (03/05/2023 10:13 AM CDT): Chronic problem, controlled on current regimen. 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 Will update labs today. Verified phone #/address to contact re: results. Assessment & Plan (11/02/2022 2:43 PM TENT ASSEMBLER): Well controlled, with risk of hypoglycemia Insuli [...] Ross Assessment & Plan (09/07/2020 2:26 PM TENT ASSEMBLER): Hba1c was Lab Results Component Value Date [...] Trulicity. Assessment & Plan (12/09/2019 2:03 PM TENT ASSEMBLER): Your Hba1c today was: Lab Results Component [...] hypoglycemia. Assessment & Plan (10/24/2018 1:00 PM TENT ASSEMBLER): Stable BG pattern 100-140 reported since last adjustment to plan. No change today. BG goals reviewed. Advised to lower Lantus by 2 units if FBG are < 100 x 2 days/wk. For planned activity, reduce Humalog dose by 1/2 at preceding meal. Assessment & Plan (09/19/2018 11:11 AM TENT ASSEMBLER): Your Hba1c today was: Lab Results Component [...] time. Assessment & Plan (12/11/2017 10:47 AM TENT ASSEMBLER): Hba1c was .5.4 Today, 1800 calorie, consistent [...] with type 2 diabetes mellitus 10/23/2024 11/24/2024 ESRD on dialysis 05/22/2019 03/17/2025 Hypoglycemia 09/19/2018 05/22/2019 Assessment & Plan (09/19/2018 11:20 AM TENT ASSEMBLER): Prevention and treatment of hypoglycemia were discussed [...] therapy Assessment & Plan (10/24/2018 12:57 PM TENT ASSEMBLER): Check lipid panel Assessment & Plan (06/18/2018 2:31 PM CDT): Continue statin therapy Assessment & Plan (02/08/2018 11:00 AM CDT): Continue atorvastatin Assessment & Plan (12/11/2017 10:45 AM TENT ASSEMBLER): Goal of treatment , LDL cholesterol less [...] = 0.6 oz pur e alcohol) [facility] [employer] Answer Date Recorded In the past 12 months has [employer], oil, or water [employer] threatened to shut off services in your [...] any time in the past 12 [facility], were you homeless or living in a correction (including now)? No 10/23/2024 Personal Safety Answer Date Recorded Have you ever been in or are you currently in a harmful physical or emotional relationship or is someone making you feel afraid or unsafe? Denies 10/22/2024 Sex and Gender Information Value Date Recorded Sex Assigned at Not on file Legal Sex Male 7:27 PM TENT ASSEMBLER Gender Identity Not on file Sexual Orientation Not on file Last Filed Vital Signs Vital Sign Reading Time Taken Comments Blood Pressure 102/58 11/24/2024 9:58 AM TENT ASSEMBLER Pulse 75 11/24/2024 9:58 AM TENT ASSEMBLER Temperature 36.3 C (97.3 F) 10/25/2024 2:15 PM TENT ASSEMBLER Respiratory Rate 20 11/24/2024 9:58 AM TENT ASSEMBLER Oxygen Saturation 100% 10/25/2024 1:15 PM TENT ASSEMBLER Inhaled Oxygen Concentration - - Weight 91.3 kg (201 lb 4.5 oz) 10/22/2024 8:29 P M TENT ASSEMBLER Height 170.2 cm (5' 7.01) 11/24/2024 9:58 AM CS T Body Mass Index 31.52 10/22/2024 8:29 PM TENT ASSEMBLER Plan of Treatment Not on file Medical Devices Implanted Type Area Paper Finisher Device Identifier Shelf Expiration Date Model / Serial / Lot Med[employer]onic [employer] Micra 2 Av Synchronous Leadless Ventricular Pacemaker [id number] - [id number] - [id number] Implanted:Qty: 1 on 10/24/2024 by Darien Jamil Jr., MD at [facility] [employer] 02/16/2026 [id number] / [id number] / Procedures Procedure Name Priority Date/Time Associated Diagnosis Comments DEVICE CHECK - IN OFFICE Routine 01/21/2025 9:26 AM CDT Cardiac pacemaker in situ Asystole (HCC) Syncope and collapse Symptomatic bradycardia POCT HEMOGLOBIN A1C Routine 11/24/2024 10:01 AM TENT ASSEMBLER Type 2 diabetes mellitus with hyperglycemia, with long-term current use of insulin (CMS/HCC) EGFR Routine 10/25/2024 5:48 AM TENT ASSEMBLER HEPATITIS PANEL, ACUTE Routine 10/23/2024 2:45 PM TENT ASSEMBLER HM DIABETES EYE EXAM Routine 08/13/2024 9:40 [...] Read Routine (OP Routine) 12/05/2021 11:53 AM TENT ASSEMBLER End stage renal disease (HCC) from Last [...] * POCT hemoglobin A1c (11/24/2024 10:01 AM TENT ASSEMBLER) Pathologist [facility] Hemoglobin A1C, POC 4.9 4.0 - 5.6 % Blood 11/24/2024 10:0 1 AM TENT ASSEMBLER us Bertha Pinto NP POINT OF CARE TEST ORDERA BLES Final Result * (ABNORMAL) eGFR (10/25/2024 5:48 AM TENT ASSEMBLER) Pathologist [facility] eGFR 9(L) >=60 mL/min/1. 73 m2 Comment: [...] last reviewed 2021. Blood 10/25/2024 5:48 AM TENT ASSEMBLER 10/25/2024 6:03 AM TENT ASSEMBLER Raisa Scherer NP LAB BLOOD ORDERABLES Jeaneth mari Result NIDIA [address] Department [place] [address] * Hepatitis panel, acute Blood (10/23/2024 2:45 PM TENT ASSEMBLER) Hep A IgM Nonreactive Nonreactive Comment: Interpretive Data: If Hep A IgM Ab is reported as Equivocal, a new sample should be drawn in two weeks for testing. Current interpretive data was last revised on 20. Hep B core IgM Nonreactive Nonreactive NIDIA Comment: Interpretive Data If HepB Core IgM [...] last revised on 2020. HepBsAg Nonreactive Nonreactive [facility] Blood 10/23/2024 2:45 PM TENT ASSEMBLER 10/23/2024 2:46 PM TENT ASSEMBLER Sherrill Christianson MD LAB MICROBIOLOGY - GENERAL ORDERABLES Final Result Performing Organization Address [facility] Co de Phone Number NIDIA C[address] Department [place] [address] * (ABNORMAL) DIABETES EYE EXAM (08/13/2024 9:40 AM CDT) Historical Provider HEALTH MAINTENANCE Edited Result - Final * (ABNORMAL) Albumin Creatinine Ratio, Urine (03/10/2024 8:46 AM CDT) Albumin Ur 3,169.5 mg/L Comment: Interpretive Data No reference range established. Current interpretive data was last revised 2019. Creatinine Ur 47.7 mg/dL [facility] Comment: Interpretive Data No reference range established. Current interpretive data was last revised 2019. Albumin Creatinine Ratio, Ur 6,645(H) 1 - 29 mg/g [facility] Urine 03/10/2024 8:46 AM CDT 03/11/2024 9:11 AM CDT Bertha Pinto TAP PULLER LAB URINE ORDERABLES Jeaneth l Result Performing Organization Address [facility] Co de Phone Number NIDIA [place]OTE [address] [address] Department [place] [employer] [place] [address] * (ABNORMAL) Lipid panel (03/03/2024 9:29 AM [...] NP LAB BLOOD ORDERABLES Jeaneth mari Result NDIIA COTE [address] Department [place] [address] * CT Abdomen Pelvis WO Contrast (12/05/2021 11:53 AM TENT ASSEMBLER) Anatomical Region Laterality Modality Body N/A Computed Tomogra phy 12/05/2021 12:0 4 PM TENT ASSEMBLER Impressions 12/05/2021 12:04 PM TENT ASSEMBLER Bone windows show no suspicious lytic or blastic lesions. IMPRESSION: 1. 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 2. 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 Electronically signed by: Ryan Cameron M.D. Narrative 12/05/2021 12:04 PM TENT ASSEMBLER EXAMINATION: Computed tomography of the abdomen/pelvis without [...] adeniform shape. There is atrophy of both [place] kidneys. Adjacent fat stranding is likely related [...] adeniform shape. There is atrophy of both [place] kidneys. Adjacent fat stranding is likely related [...] FOR LIFE FOR LIFE MEDICARE MEDICARE [facility] Care Teams Human Services Worker Relationship Specialty Start Date End Date Mariza Carrion MD [address] [address] PCP - General Family Practice 03/05/23 Efren Hoyos MD Referring Physician Ophthalmology 06/16/19 Dank Hicks MD [address] [facility] [address] [place] [address] Consulting Physician Cardiology 10/11/21
--- OUTSIDE RECORDS SUMMARY | 2025-03-22 22:23 | XMS_ITS | Clinical Summary ---
Author Organization [facility] Address [address] [place] [phone] Phone Care Team Providers Care Naval Engineer Name Role Phone Mariza Carrion MD Primary [...] dir 0 11/12/2017 Active ergocalciferol (VITAMIN D-2) 87365 units capsule Take 1 capsule (50,000 Units total) by mouth 2 (two) times a week. 28 capsule 3 03/27/2019 Active hydrALAZINE (APRESOLINE) 100 MG tablet TAKE 1 TABLET TWICE A DAY 180 tablet 4 04/30/2019 Active aspirin 81 MG chewable tablet one p.o. qd 05/23/2012 A ctive ergocalciferol (VITAMIN D-2) 42547 units capsule one p.o. capsule once a [...] (Season Ended) 2025 Insurance MEDICARE Care Teams Naval Engineer Relationship Specialty Start Date End Date Mariza Carrion MD [address] [place] [address] PCP - General Internal Medicine 01/06/19
--- OUTSIDE RECORDS SUMMARY | 2025-03-22 22:23 | XMS_ITS | Clinical Summary ---
Author Organization [facility] Facility Address [address] [address] Care Team Providers Care Clamshell Operator Name Role Phone Murali Dawkins MD Primary [...] age to complete this topic Insurance Medicare [facility] Care Teams Clamshell Operator Relationship Specialty Start Date End Date Murali Dawkins MD [address] [place] [address] PCP - General Family Medicine 10/28/24
--- OUTSIDE RECORDS SUMMARY | 2025-03-22 22:23 | XMS_ITS | CONTINUITY OF CARE DOCUMENT ---
Author Name milly atkins Address Unknown Organization [facility] Address [address] [place] [address] Phone [phone] Care Team Providers Care Professional Tutor Name Role Phone Kostas Pelaez MD Unavailable [phone] Kostas Pelaez MD Unavailable [phone] PROBLEMS Condition Status Date Provider Notes S/P Single chamb PCM Micra - Medtronic ( MRI safe) active Tonie Garay INSURANCE PROVIDERS Payer name Policy type / Coverage type Augustin red libertarian ID [employer] [place] [id number] [place] MEDICARE PART B Medicare [id number]
--- OUTSIDE RECORDS SUMMARY | 2025-03-22 22:23 | XMS_ITS | Clinical Summary ---
Author Organization [facility] Address [address] [place] [phone] Care Team Providers Care Retail Special Event Associate Name Role Phone Efren Hoyos MD Unavailable Dank Hicks MD Unavailable [phone] Mariza Carrion MD Primary Care Provider Allergies [...] long-term current use of insulin ([facility]) Change sensor every 14 days 9 kit [...] long-term current use of insulin ([facility]) Use pads 5 times daily 200 each [...] 12/09/2019 Assessment & Plan (09/03/2023 9:28 AM NURSING INFORMATICS SPECIALIST): Chronic problem. [facility] [place]: //Saturdays. LUE fistula. Assessment & Plan (03/05/2023 9:59 AM CDT): Chronic problem. [facility] [place]: //Saturdays. LUE fistula. Hyperlipidemia associated with type 2 diabetes fouzia victoria 05/22/2019 Assessment & Plan (11/24/2024 10:10 AM NURSING INFORMATICS SPECIALIST): Chronic problem. Controlled on current Atorvastatin 20mg. Last lipid panel: 03/03/24 LDL=33, TG=75. Assessment & Plan (03/03/2024 8:45 AM CDT): Chronic problem. Controlled on current Atorvastatin 20mg. Last lipid panel: 03/05/23 LDL=57, GV=319. Will update labs today. Does not mychart. Verified phone #/address to contact re: results. Assessment & Plan (09/03/2023 9:28 AM NURSING INFORMATICS SPECIALIST): Chronic problem. Controlled on current Atorvastatin 20mg. Last lipid panel: 03/05/23 LDL=57, KH=806. Assessment & Plan (03/05/2023 9:53 AM CDT): Chronic problem. Controlled on current Atorvastatin 20mg. Last lipid panel: 12/05/21 LDL=36, AY=564. Will update labs today. Verified phone #/address to contact re: results. Assessment & Plan (11/02/2022 2:47 PM NURSING INFORMATICS SPECIALIST): Chronic, well controlled Low fat Low [...] Lipitor Assessment & Plan (09/07/2020 2:26 PM NURSING INFORMATICS SPECIALIST): Goal of treatment , LDL cholesterol [...] panel Assessment & Plan (12/09/2019 2:03 PM NURSING INFORMATICS SPECIALIST): Very high TG Add Vascepa Assessment & [...] statin therapy Coronary artery disease invo lving stillaguamish coronary artery of stillagu[place]ish heart without angina pectoris 10/04/2017 Hx of CABG 10/04/2017 Class 2 severe obesity due t o excess calories with serious comorbidity and body mass index (BMI) of 38.0 to 38.9 in adult 05/22/2017 Assessment & Plan (10/24/2018 12:58 PM NURSING INFORMATICS SPECIALIST): Making progress with diet efforts. Continue Assessment & Plan (02/08/2018 11:01 AM CDT): Importance of following diet and exercising discussed. Hypertension associated with diabetes 05/22/2017 Assessment & Plan (11/24/2024 10:11 AM NURSING INFORMATICS SPECIALIST): Chronic problem. Controlled on current losartan 100mg daily, amlodipine 10mg daily Assessment & Plan (03/03/2024 8:45 AM CDT): Chronic problem. BP elevated upon arrival. Controlled on current Carvedilol 25mg bid, losartan 100mg daily. No changes at this time. Will update labs today. Does not mychart. Verified phone #/address to contact re: results. Assessment & Plan (09/03/2023 9:28 AM NURSING INFORMATICS SPECIALIST): Chronic problem. BP elevated upon arrival. [...] renal Assessment & Plan (10/24/2018 12:57 PM NURSING INFORMATICS SPECIALIST): Controlled. Continue current medication plan and follow up with cardiology Assessment & Plan (06/18/2018 2:30 PM CDT): BP controlled on current medication plan. Continue follow up with nephrology Assessment & Plan (02/08/2018 11:00 AM CDT): Continue same medication Assessment & Plan (12/11/2017 10:24 AM NURSING INFORMATICS SPECIALIST): Goal blood pressure is less than [...] mellitus Assessment & Plan (11/24/2024 10:16 AM NURSING INFORMATICS SPECIALIST): Chronic problem, controlled on current regimen. [...] daily for skin breakdown and infection (sees medicaid nurse regularly). Assessment & Plan (03/03/2024 9:19 AM [...] daily for skin breakdown and infection (sees medicaid nurse regularly). Assessment & Plan (09/03/2023 9:27 AM NURSING INFORMATICS SPECIALIST): Chronic problem, controlled on current regimen. [...] daily for skin breakdown and infection (sees medicaid nurse regularly). Assessment & Plan (03/05/2023 10:13 AM CDT): Chronic problem, controlled on current regimen. Current medications: Trulicity 1.5mg weekly Lantus 6 units every morning Humalog 4 units before meals For sugars over 160: take 6 units For sugars over 200: take 8 units Seen by [facility] every 4-5 mos; letter sent to get [...] daily for skin breakdown and infection (sees medicaid nurse regularly). Will update labs today. Verified phone #/address to contact re: results. Assessment & Plan (11/02/2022 2:43 PM NURSING INFORMATICS SPECIALIST): Well controlled, with risk of hypoglycemia [...] Ross Assessment & Plan (09/07/2020 2:26 PM NURSING INFORMATICS SPECIALIST): Hba1c was Lab Results Component Value [...] Trulicity. Assessment & Plan (12/09/2019 2:03 PM NURSING INFORMATICS SPECIALIST): Your Hba1c today was: Lab Results Component Value Date HGBA1C 9.3 12/09/2019 meaning a 3 month average sugar of : 224 Your goal hba1c is under 7.0 to prevent long term care social worker diabetes complications ( eye , kidney and [...] hypoglycemia. Assessment & Plan (10/24/2018 1:00 PM NURSING INFORMATICS SPECIALIST): Stable BG pattern 100-140 reported since last adjustment to plan. No change today. BG goals reviewed. Advised to lower Lantus by 2 units if FBG are < 100 x 2 days/wk. For planned activity, reduce Humalog dose by 1/2 at preceding meal. Assessment & Plan (09/19/2018 11:11 AM NURSING INFORMATICS SPECIALIST): Your Hba1c today was: Lab Results [...] time. Assessment & Plan (12/11/2017 10:47 AM NURSING INFORMATICS SPECIALIST): Hba1c was .5.4 Today, 1800 calorie, [...] Date Resolved Date Controlled type 2 diabetes m julien, without long-term current use of insulin 10/23/2024 025 Dyslipidemia associated with type 2 diabetes mellitus 10/23/2024 11/24/2024 ESRD on dialysis 05/22/2019 03/17/2025 Hypoglycemia 09/19/2018 05/22/2019 Assessment & Plan (09/19/2018 11:20 AM NURSING INFORMATICS SPECIALIST): Prevention and treatment of hypoglycemia were discussed [...] therapy Assessment & Plan (10/24/2018 12:57 PM NURSING INFORMATICS SPECIALIST): Check lipid panel Assessment & Plan (06/18/2018 2:31 PM CDT): Continue statin therapy Assessment & Plan (02/08/2018 11:00 AM CDT): Continue atorvastatin Assessment & Plan (12/11/2017 10:45 AM NURSING INFORMATICS SPECIALIST): Goal of treatment , LDL cholesterol [...] Description 01/21/2025 9:30 AM CDT Ancillary Procedure [facility] Cardiology [address] [facility] [address] [place] [phone] Cardiac pacemaker in situ; Asystole (HCC); Syncope and collapse; Symptomatic bradycardia 01/19/2025 Telephone [facility] Cardiology [address] [place] [address] [place] [phone] Dank Hicks MD 01/05/2025 Telephone [facility] Diabetes and Endocrinology [address] [place] [phone] Bertha Pinto, JUAREZ Release of Information 12/30/2024 Telephone [facility] Cardiology [address] [place] [address] [place] [phone] Dank Hicks MD 12/22/2024 Orders Only [facility] Cardiology [address] [place] [address] [place] [phone] Curt Grady MD from Last 3 [...] drink = 0.6 oz pur e alcohol) [facility] Utilities Answer Date Recorded In the past 12 months has e [employer], gas, oil, or water [employer] threatened to shut off services in your [...] any clubs o r organizations such as cheondoism groups, unions, fraternal or athletic groups, or [...] any time in the past 12 m [facility], were you homeless or living in a [...] on file Legal Sex Male 7:27 PM NURSING INFORMATICS SPECIALIST Gender Identity Not on file Sexual Orientation Not on file Obstetrics History Last Filed Vital Signs Vital Sign Reading Time Taken Comments Blood Pressure 102/58 11/24/2024 9:58 AM NURSING INFORMATICS SPECIALIST Pulse 75 11/24/2024 9:58 AM NURSING INFORMATICS SPECIALIST Temperature 36.3 C (97.3 F) 10/25/2024 2:15 PM NURSING INFORMATICS SPECIALIST Respiratory Rate 20 11/24/2024 9:58 AM NURSING INFORMATICS SPECIALIST Oxygen Saturation 100% 10/25/2024 1:15 PM NURSING INFORMATICS SPECIALIST Inhaled Oxygen Concentration - - Weight 91.3 kg (201 lb 4.5 oz) 10/22/2024 8:29 P M NURSING INFORMATICS SPECIALIST Height 170.2 cm (5' 7.01) 11/24/2024 9:58 AM CS T Body Mass Index 31.52 10/22/2024 8:29 PM NURSING INFORMATICS SPECIALIST Plan of Treatment Health Maintenance Due Date [...] 10/23/2024, 022 Medical Devices Implanted Type Area Drywall Finisher Device Identifier Shelf Expiration Date Model / Serial / Lot [employer] Micra 2 Av Synchronous Leadless Ventricular Pacemaker [id number] - [id number] - [id number] Implanted:Qty: 1 on 10/24/2024 by Darien Jamil Jr., MD at [facility] [employer] 02/16/2026 [id number] / [id number] / Procedures Procedure Name Priority Date/Time Associated Diagnosis Comments DEVICE CHECK - IN OFFICE Routine 01/21/2025 9:26 AM CDT Cardiac pacemaker in situ Asystole (HCC) Syncope and collapse Symptomatic bradycardia POCT HEMOGLOBIN A1C Routine 11/24/2024 10:01 AM NURSING INFORMATICS SPECIALIST Type 2 diabetes mellitus with hyperglycemia, with long-term current use of insulin (CMS/HCC) EGFR Routine 10/25/2024 5:48 AM NURSING INFORMATICS SPECIALIST HEPATITIS PANEL, ACUTE Routine 10/23/2024 2:45 PM NURSING INFORMATICS SPECIALIST HM DIABETES EYE EXAM Routine 08/13/2024 [...] Read Routine (OP Routine) 12/05/2021 11:53 AM NURSING INFORMATICS SPECIALIST End stage renal disease (HCC) from Last [...] * POCT hemoglobin A1c (11/24/2024 10:01 AM NURSING INFORMATICS SPECIALIST) [facility] Hemoglobin A1C, POC 4.9 4.0 - 5.6 % Blood 11/24/2024 10:0 1 AM NURSING INFORMATICS SPECIALIST Bertha Pinto NP POINT OF CARE TEST ORDERA BLES Final Result * (ABNORMAL) eGFR (10/25/2024 5:48 AM NURSING INFORMATICS SPECIALIST) Pathologist [facility] eGFR 9(L) [...] last reviewed 2021. Blood 10/25/2024 5:48 AM NURSING INFORMATICS SPECIALIST 10/25/2024 6:03 AM NURSING INFORMATICS SPECIALIST us Raisa Scherer NP LAB BLOOD ORDERABLES Jeaneth mari Result [facility] [address] Department [place] [address] * Hepatitis panel, acute Blood (10/23/2024 2:45 PM NURSING INFORMATICS SPECIALIST) Hep A IgM Nonreactive Nonreactive Comment: Interpretive [...] [facility] Blood 10/23/2024 2:45 PM NURSING INFORMATICS SPECIALIST 10/23/2024 2:46 PM NURSING INFORMATICS SPECIALIST Sherrill Christianson MD LAB MICROBIOLOGY - GENERAL ORDERABLES Final Result Performing Organization Address City/[facility] Co de Phone Number NIDIA [address] Department [place] [address] * (ABNORMAL) DIABETES EYE EXAM (08/13/2024 9:40 [...] ORDERABLES Jeaneth l Result Performing Organization Address [facility] Co de Phone Number NIDIA [place] [address] Department [place] [address] * (ABNORMAL) Lipid panel (03/03/2024 9:29 AM [...] CDT 03/03/2024 4:40 PM CDT us Bertha Pnito NP LAB BLOOD ORDERABLES Jeaneth mari Result [facility] [address] Department [place] [address] * CT Abdomen Pelvis WO Contrast (12/05/2021 11:53 AM NURSING INFORMATICS SPECIALIST) Anatomical Region Laterality Modality Body N/A Computed Tomogra phy 12/05/2021 12:0 4 PM NURSING INFORMATICS SPECIALIST Impressions 12/05/2021 12:04 PM NURSING INFORMATICS SPECIALIST Bone windows show no suspicious lytic or blastic lesions. IMPRESSION: 1. 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 2. 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 Electronically signed by: Ryan Cameron M.D. Narrative 12/05/2021 12:04 PM NURSING INFORMATICS SPECIALIST EXAMINATION: Computed tomography of the abdomen/pelvis [...] adeniform shape. There is atrophy of both stillagu[place] kidneys. Adjacent fat stranding is likely related [...] adeniform shape. There is atrophy of both still[place] kidneys. Adjacent fat stranding is likely related [...] MEDICARE FOR LIFE FOR LIFE MEDICARE MEDICARE [employer] Care Teams Retail Special Event Associate Relationship Specialty Start Date End Date Mariza Carrion MD [address] [place] [address] PCP - General Family Practice 03/05/23 Efren Hoyos MD Referring Physician Ophthalmology 06/16/19 Dank iHcks MD [address] [address] Consulting Physician Cardiology 10/11/21
--- OUTSIDE RECORDS SUMMARY | 2025-03-22 22:23 | XMS_ITS | Clinical Summary ---
Author Organization [facility] Address [address] [place] [address] Care Team Providers Care Quartz Miner Blasting Name Role Phone Mariza Carrion MD Primary Care Provider Source Comments [facility],non-owned Affiliates and Associated Physician Practices is amultiple site organization consisting of ambulatory clinics and hospital sitesin [place], [place] and [place]. This disclosure is being madepursuant to the Care Everywhere program and may not contain all information available regarding this patient. Last updated 18.[facility] Allergies No known active allergies Medications * [...] Use pads 5 times daily 8 Active glyli-7-wgks ethyl esters (LOVAZA) 1 g capsule Take [...] FOR MUSCLE SPASM 4 Active HYDROcodone-ac etaminophen ([place]) 5-325 MG tablet 4 Active Lokelma 10 [...] and heating? Not hard at all 04/06/2023 [facility] of Occupat ional Health - Occupational Stress [...] Comments Blood Pressure 147/70 09/22/2024 8:55 AM GLOBAL CHIEF EXPERIENCE OFFICER Pulse 68 09/22/2024 8:55 AM GLOBAL CHIEF EXPERIENCE OFFICER Temperature 36.2 C (97.2 F) 09/22/2024 7:24 AM GLOBAL CHIEF EXPERIENCE OFFICER Respiratory Rate 15 09/22/2024 8:5 5 AM GLOBAL CHIEF EXPERIENCE OFFICER Oxygen Saturation 92% 09/22/2024 8:55 AM GLOBAL CHIEF EXPERIENCE OFFICER Inhaled Oxygen Concentration 25% 04/11/2023 7 :26 PM CDT Weight 87.9 kg (193 lb 12.6 oz) 09/22/2024 7:24 AM GLOBAL CHIEF EXPERIENCE OFFICER Height 170.2 cm (5' 7) 09/22/2024 7:24 AM GLOBAL CHIEF EXPERIENCE OFFICER Body Mass Index 30.35 09/22/2024 7:24 AM GLOBAL CHIEF EXPERIENCE OFFICER Plan of Treatment Upcoming Encounters Date Type Department Care Team (Late st Contact Info) Description 03/23/2025 8:00 AM CDT Appointment [facility] Health Vascular Services [address], [address] [place] [address] [place] [address] [place] [address] Health Maintenance Due Date Last [...] this topic Medical Devices Implanted Type Area Motor Vehicle License Clerk Device Identifier Shelf Expiration Date Model / Serial / Lot Mynxgrip Vascular Closure Device Implanted:Qty: 1 on 04/11/2023 by Matt Beyer DO at [facility] Right: Groin 01/19/2025 [id number] / [id number] / [id number] 5tch Cv 6x1cm [employer] Decellularized Implanted:Qty: 1 on 04/20/2023 by Matt Beyer DO at [facility] N/A: Other (See Descriptio n) [employer] 01/28/2024 [id number] / / [id number] Description:LEFT FEMORAL ART BARI Procedures Procedure Name Priority Date/Time Associated Diagnosis Comments HEPATITIS SCREEN ACUTE STAT 04/07/2023 8:19 AM CDT from Last 3 Months or Most Recently Relevant to Health Maintenance Results * HEPATITIS SCREEN ACUTE (04/07/2023 8:19 AM CDT) Pathologist [facility] Antibody IgM Non Reactive Non Reactive 04/07/2023 9:28 AM CDT [facility] HBsAg Non Reactive Non Reactive 04/07/2023 9:28 AM CDT [facility] HBc Antibody IgM Non Reactive Non Reactive 04/07/2023 9:28 AM CDT [facility] HCV Antibody Screen Non Reactive Non Reactive 04/07/2023 9:28 AM CDT [facility] Blood BLOOD SPECIMEN / Unknown Venipuncture / Unknown 04/07/2023 8:19 AM CDT 04/07/2023 8:31 AM CDT Narrative [facility] - 04/07/2023 9:28 AM CDT Non Reactive - Antibodies to Hepatitis C virus (HCV) were not detected, result does not exclude early acute HCV infection. us Marito Rios MD LAB - CHEMISTRY ORDERABLES Jeaneth mari Result [facility] [address] [place] [address] from Last 3 Months or Most Recently Relevant to Health Maintenance Insurance MEDICARE MEDICARE [facility] Advance Directives Documents on File Type Date Recorded Patient Kettle Coordinator Expl anation Adv Directive/Living Will/POA 05/02/2023 3:49 PM * Full Code (Latest Code Status on File) Date Activated Date Inactivated Comments 04/06/2023 9:49 AM 05/01/2023 4:44 PM Care Teams [employer] Relationship Specialty Start Date End Date Mariza Carrion MD [address] [place] [address] PCP - General Family Medicine 08/26/18
[2025-03-22 22:39] LABS: NT Pro B Type Natriuretic Pept > 30000 pg/mL (19.9-100)
[2025-03-22 22:58] LABS: Add Urine Microscopic? YES; Appearance Urine Cloudy (Clear); Bacteria Urine None Seen /hpf; Bilirubin Urine Negative (Negative); Blood Urine 3+ (Negative); Color Urine Yellow (Yellow); Glucose Urine UA Negative (Negative); Ketones Urine Negative (Negative); Leukocyte Esterase Ur 3+ LEU/UL (Negative); Need Manual Microscopic Reviewed; Nitrate Urine Negative (Negative); Non Pathogenic Casts 0-2; Protein Urine 4+ mg/dL (Negative); Specific Grav Ur 1.014 (1.001-1.035); Squamous Epithelial Cell Urine None Seen /hpf (Few); Urobilinogen Urine 0.2 mg/dL (<2.0); WBC Urine >100 /hpf (0-3)
[2025-03-22 23:03] LABS: Lactic Acid Reflex 0.8 mmol/L (0.7-2.0)
--- NOTE | 2025-03-22 23:13 | ED_ITS ---
HPI - General Adult General Chief complaint: Fall Stated complaint: MULTIPLE RECENT FALLS Time Seen by Provider: 03/22/25 21:56 History of Present Illness HPI narrative: Patient 79-year-old gentleman who presents emergency department with chief complaint of increased confusion and lethargy patient is from [facility] and the patient had a malfunction with his CPAP at night and has been having recurrent falls throughout the day and struck his head yesterday the patient reports that he is normally on 3 L of nasal cannula oxygen Related Data Home Medications ?Medication ?Instructions ?Recorded ?Confirmed ?Last Taken ?Type aspirin 81 mg tablet,delayed 81 mg PO DAILY 10/31/21 03/14/25 03/09/25 History release carvedilol 25 mg tablet 25 mg PO BID 10/31/21 03/14/25 03/09/25 History insulin lispro 100 unit/mL 4 unit subcut .TIDAC 10/31/21 03/14/25 03/09/25 History subcutaneous pen loratadine 10 mg tablet (Claritin) 10 mg PO DAILY 10/31/21 03/14/25 03/09/25 History insulin glargine 100 unit/mL (3 6 unit subcut HS 11/07/23 03/14/25 03/09/25 22:20 History mL) subcutaneous pen (Lantus Solostar U-100 Insulin) cinacalcet 90 mg PO DAILY 12/12/23 03/14/25 03/09/25 History atorvastatin 20 mg tablet 20 mg PO HS 12/21/24 03/14/25 03/09/25 History pentoxifylline 400 mg 400 mg PO QPM 01/29/25 03/14/25 03/09/25 17:00 History tablet,extended release acetaminophen 300 mg-codeine 30 mg 1 tablet PO Q6H PRN pain, severe 02/16/25 03/14/25 03/01/25 History tablet amlodipine 10 mg tablet 10 mg PO DAILY 02/16/25 03/14/25 03/09/25 History bisacodyl 10 mg rectal suppository 10 mg RECTAL DAILY PRN constipation 02/16/25 03/14/25 Unknown History (Laxative (bisacodyl)) gabapentin 100 mg capsule 100 mg PO TID 02/16/25 03/14/25 03/09/25 History liraglutide 0.6 mg/0.1 mL (18 mg/3 1.2 mg subcut HS 02/16/25 03/14/25 03/09/25 History mL) subcutaneous pen injector loratadine 10 mg capsule (Allergy 10 mg PO DAILY PRN itching 02/16/25 03/14/25 03/09/25 History Relief (loratadine)) magnesium citrate (Citroma oral 296 ml PO .AM PRN constipation 02/16/25 03/14/25 Unknown History solution) magnesium hydroxide 400 mg/5 mL 30 ml PO HS PRN constipation 02/16/25 03/14/25 Unknown History oral suspension (Milk of Magnesia) sodium phosphates 19 gram-7 118 ml RECTAL DAILY PRN 02/16/25 03/14/25 Unknown History gram/118 mL enema (Fleet Enema) constipation vitamin B complex 1 cap PO DAILY 02/16/25 03/14/25 03/09/25 History acetaminophen 325 mg tablet 650 mg PO TID 03/10/25 03/14/25 03/09/25 History baclofen 5 mg tablet 5 mg PO TID 03/10/25 03/14/25 03/09/25 History cyclobenzaprine 10 mg tablet 10 mg PO Q8H PRN muscle spasm 03/10/25 03/14/25 Unknown History ipratropium 20 mcg-albuterol 100 1 puff inhalation Q6H PRN 03/10/25 03/14/25 Unknown History mcg/actuation mist for inhalation shortness of breath or wheezing (Combivent Respimat) loperamide 2 mg capsule 2 mg PO Q4H PRN loose stool 03/10/25 03/14/25 Unknown History losartan 100 mg tablet 100 mg PO DAILY PRN blood pressure 03/10/25 03/14/25 Unknown History melatonin 3 mg tablet 3 mg PO HS 03/10/25 03/14/25 03/09/25 History tramadol 50 mg tablet 50 mg PO BID 03/10/25 03/14/25 03/09/25 History umeclidinium 62.5 mcg/actuation 1 inh inhalation DAILY 03/10/25 03/14/25 03/09/25 History blister powder for inhalation (Incruse Ellipta) sevelamer carbonate 0.8 gram oral 0.8 g PO TIDWM 03/14/25 03/14/25 Unknown History powder packet Allergies Allergy/AdvReac Type Severity Reaction Status Date / Time No Known Allergies Allergy Verified 03/10/25 07:55 Review of Systems 2 Review of Systems: A 10 system review of systems was completed on the patient and is negative except for what is stated in the HPI. Nursing and ancillary documentation was reviewed. [facility] Past Medical History Medical History Bilateral shoulder pain Diabetic polyneuropathy Diabetes Coronary artery disease Chronic obstructive pulmonary disease Diabetic peripheral neuropathy Anemia Atrial fibrillation Chronic neck and back pain Insomnia History of nephrolithiasis Sinus pause (~09/2024) Obstructive sleep apnea Intolerant to CPAP Insulin dependent type 2 diabetes mellitus (~2009) Benign prostatic hyperplasia Peripheral vascular disease (~03/2023) Internal hemorrhoid, bleeding End-stage renal disease on hemodialysis DVT dialysis Sunday History of colon polyps Environmental allergies Vitamin D deficiency Dyslipidemia Essential (primary) hypertension Surgical History Surgical History History of cardiac pacemaker (~10/2024) Medtronic pacemaker placed due to symptomatic sinus pauses causing syncope performed at [facility] Status post cataract extraction of both eyes with insertion of intraocular lens History of colonoscopy with polypectomy History of hemorrhoidectomy (~01/12/24) Anorectal evaluation under anesthesia and excisional hemorrhoidectomy x3 12/14/23 [facility] S/P peripheral artery angioplasty (~03/2023) status post balloon angioplasty of bilateral common and external iliac arteries status post left iliofemoral endarterectomy Arteriovenous fistula of left upper extremity (~2017) History of appendectomy (~1962) History of coronary artery bypass graft (~2013) Family History Family History Mother Diabetes mellitus Acute myocardial infarction Family history of congestive heart failure Father Hypertension Social History Social History Social History: The patient is . He and his brother live together prior to his recent hospitalization and placement in to [facility]. He is retired after 26 years of serving in the [employer]. He has 4 children. He used to smoke 1.5-2 packs of cigarettes per day but quit smoking in approximately 2009. He will on a rare occasion drink an alcoholic beverage maybe 2 to 3 times a year. He denies illicit substance use. Surrogate medical decision maker: Wilian Morrissey, sibling. Code status: Full code. Caffeine- daily Smoking packs per day: 1.5 Smoking cigarettes per day: 30.0 Years smoked: 44 Smoking pack-years: 66.00 Smoking status: Never smoker Second hand tobacco smoke exposure: No Alcohol intake: never Alcohol use details: Maybe 2-3 per year Substance use: never Substance use type: does not use Do You Feel Safe in your Home?: Yes Lack of Transportation: No Lack of Food: Never True Current Housing: I Have Housing Concerned About Future Housing: No Difficulty Paying Gas/Electric Bills: No Difficulty Paying for Meds: No Currently Unemployed: No Education: High School Diploma/GED Difficulty w/ Childcare or Family Care: No Living arrangements: with family Occupation/Education: retired Additional occupation/education comments: Retired from the [employer]. Spiritual care concerns: No Agree to blood products: Yes Exam 2 Narrative: GENERAL: Ill-appearing, well-nourished, and in no acute distress. HEAD: Normocephalic, atraumatic. EYES: PERRLA and EOMI. ENT: Nares clear, no rhinorrhea or epistaxis. Mucous membranes moist. NECK: Supple. CHEST: Clear to auscultation. No respiratory distress. HEART: Regular rate and rhythm. No murmur heard. Normal peripheral pulses. ABDOMEN: Soft, nontender, nondistended, normal active bowel sounds. EXTREMITIES: Normal range of motion. No edema. SKIN: Warm, dry, no rash. NEURO: No focal deficits. Alert and oriented x3. PSYCH: Normal mood and affect. Course Vital Signs Vital signs: Vital Signs Temperature 36.6 C 03/22/25 20:59 Pulse Rate 65 03/22/25 20:59 Respiratory Rate 18 03/22/25 20:59 Blood Pressure 155/82 H 03/22/25 20:59 Pulse Oximetry 98 03/22/25 20:59 Oxygen Delivery Nasal Cannula 03/22/25 20:59 Oxygen Flow Rate 3 03/22/25 20:59 Temperature 36.6 C 03/22/25 20:59 Pulse Rate 67 03/22/25 21:34 Respiratory Rate 18 03/22/25 21:34 Blood Pressure 143/60 H 03/22/25 21:34 Pulse Oximetry 97 03/22/25 21:34 Oxygen Delivery Nasal Cannula 03/22/25 20:59 Oxygen Flow Rate 3 03/22/25 20:59 Medical Decision Making MDM Narrative Medical decision making narrative: Differential diagnosis includes respiratory failure, chronic kidney disease, Patient has dialysis Sunday Laboratory studies showed a white count of 5.2 urinalysis did show greater than 100 white blood cells in the urine 3+ leukocyte esterase CT head showed no acute abnormality CT C-spine showed no acute abnormality COVID flu RSV were negative Troponin was slightly elevated at 0.050 Patient does have chronically elevated troponins The patient was empirically started on Rocephin Vital Signs Vital Signs: Vital Signs Temperature 36.6 C 03/22/25 20:59 Pulse Rate 65 03/22/25 20:59 Respiratory Rate 18 03/22/25 20:59 Blood Pressure 155/82 H 03/22/25 20:59 Pulse Oximetry 98 03/22/25 20:59 Oxygen Delivery Nasal Cannula 03/22/25 20:59 Oxygen Flow Rate 3 03/22/25 20:59 Temperature 36.6 C 03/22/25 20:59 Pulse Rate 67 03/22/25 21:34 Respiratory Rate 18 03/22/25 21:34 Blood Pressure 143/60 H 03/22/25 21:34 Pulse Oximetry 97 03/22/25 21:34 Oxygen Delivery Nasal Cannula 03/22/25 20:59 Oxygen Flow Rate 3 03/22/25 20:59 Lab Data 03/22/25 21:54 03/22/25 21:54 Labs: Lab Results 03/22/25 03/22/25 03/22/25 Range/Units 21:54 22:27 22:37 WBC 5.2 (4.5-10.0) K/mm3 RBC 3.83 L (4.6-6.20) M/mm3 Hgb 10.2 L (14.0-18.0) g/dL Hct 34.1 L (42.0-52.0) % MCV 89.0 (80-100) fl MCH 26.6 (26-34) pg MCHC 29.9 L (32-36) g/dl RDW 17.8 H (11.5-14.5) % Plt Count 180 (150-375) k/mm3 MPV 10.9 H (7.4-10.4) fl Immature Gran % (Auto) 0.4 (0-0.5) % Neut % (Auto) 72.4 (45.5-73.1) % Lymph % (Auto) 10.5 L (18.3-44.2) % Cole % (Auto) 13.0 H (2.6-8.5) % Eos % (Auto) 2.7 (0-4.4) % Baso % (Auto) 1.0 (0.2-1.2) % Lymph # (Auto) 0.54 L (0.9-3.2) K/mm3 Cole # (Auto) 0.7 H (0.1-0.6) K/mm3 Eos # (Auto) 0.1 (0-0.3) K/mm3 Baso # (Auto) 0.1 (0.0-0.1) K/mm3 Abs Immat Gran (auto) 0.02 (0.00-0.031) K/mm3 Absolute Neuts (auto) 3.7 (1.3-6.7) K/mm3 Absolute Nucleated RBC 0.000 (0.0-0.012) K/mm3 Band Neutrophils % Not Reportable Nucleated RBC % 0.0 (0.0-0.2) % Platelet Estimate Adequate (Adequate) Hypochromasia 1+ Anisocytosis 1+ Schistocytes None seen PT 14.4 (11.1-14.7) Seconds INR 1.1 APTT 35.8 (22.3-36.8) Seconds Sodium 131 L (137-145) mmol/L Potassium 4.1 (3.4-5.0) mmol/L Chloride 89 L (98-107) mmol/L Carbon Dioxide 35 H (22-30) mmol/L Anion Gap 7 (4-12) mmol/L BUN 30 H D (9-20) mg/dL Creatinine 4.81 H (0.7-1.3) mg/dL Estim Creat Clear Calc 13 ml/min Estimated GFR 12 L (59 - ) Glucose 120 H (65-110) mg/dL Lactic Acid 0.8 (0.7-2.0) mmol/L Calcium 9.4 (8.4-10.2) mg/dL Magnesium 2.2 (1.6-2.3) mg/dL Total Bilirubin 0.3 (0.2-1.3) mg/dL AST 15 L (17-59) U/L ALT 9 (6-50) U/L Alkaline Phosphatase 57 (38-126) U/L Troponin I 0.050 H* (0.000-0.034) ng/mL NT-Pro-B Natriuret Pep > 63942 H (19.9-100) pg/mL Total Protein 6.0 L (6.3-8.2) g/dL Albumin 3.5 (3.5-5.1) g/dL Lipase 17 L (23-300) U/L Urine Color Yellow (Yellow) Urine Appearance Cloudy H (Clear) Urine pH 7.0 (5.0-9.0) Ur Specific Pratt 1.014 (1.001-1.035) Urine Protein 4+ H (Negative) mg/dL Urine Glucose (UA) Negative (Negative) mg/dL Urine Ketones Negative (Negative) mg/dL Ur Blood (Man) 3+ H (Negative) Urine Nitrate Negative (Negative) Urine Bilirubin Negative (Negative) Urine Urobilinogen 0.2 (<2.0) mg/dL Add Ur Microanalysis Reviewed Leukocyte Esterase Rfl 3+ H (Negative) MEG/UL Urine RBC 6-10 H (0-2) /hpf Urine WBC >100 H (0-3) /hpf Ur Squamous Epith Cells None seen (Few) /hpf Urine Bacteria None seen /hpf Urine Casts 0-2 Influenza A (RT-PCR) Negative (Negative) Influenza B (RT-PCR) Negative (Negative) RSV (RT-PCR) Negative (Negative) SARS-CoV-2 RNA (RT-PCR) Negative (Negative) 03/23/25 Range/Units 00:52 WBC (4.5-10.0) K/mm3 RBC (4.6-6.20) M/mm3 Hgb (14.0-18.0) g/dL Hct (42.0-52.0) % MCV (80-100) fl MCH (26-34) pg MCHC (32-36) g/dl RDW (11.5-14.5) % Plt Count (150-375) k/mm3 MPV (7.4-10.4) fl Immature Gran % (Auto) (0-0.5) % Neut % (Auto) (45.5-73.1) % Lymph % (Auto) (18.3-44.2) % Cole % (Auto) (2.6-8.5) % Eos % (Auto) (0-4.4) % Baso % (Auto) (0.2-1.2) % Lymph # (Auto) (0.9-3.2) K/mm3 Cole # (Auto) (0.1-0.6) K/mm3 Eos # (Auto) (0-0.3) K/mm3 Baso # (Auto) (0.0-0.1) K/mm3 Abs Immat Gran (auto) (0.00-0.031) K/mm3 Absolute Neuts (auto) (1.3-6.7) K/mm3 Absolute Nucleated RBC (0.0-0.012) K/mm3 Band Neutrophils % Nucleated RBC % (0.0-0.2) % Platelet Estimate (Adequate) Hypochromasia Anisocytosis Schistocytes PT (11.1-14.7) Seconds INR APTT (22.3-36.8) Seconds Sodium (137-145) mmol/L Potassium (3.4-5.0) mmol/L Chloride (98-107) mmol/L Carbon Dioxide (22-30) mmol/L Anion Gap (4-12) mmol/L BUN (9-20) mg/dL Creatinine (0.7-1.3) mg/dL Estim Creat Clear Calc ml/min Estimated GFR (59 - ) Glucose (65-110) mg/dL Lactic Acid (0.7-2.0) mmol/L Calcium (8.4-10.2) mg/dL Magnesium (1.6-2.3) mg/dL Total Bilirubin (0.2-1.3) mg/dL AST (17-59) U/L ALT (6-50) U/L Alkaline Phosphatase (38-126) U/L Troponin I Pending (0.000-0.034) ng/mL NT-Pro-B Natriuret Pep (19.9-100) pg/mL Total Protein (6.3-8.2) g/dL Albumin (3.5-5.1) g/dL Lipase (23-300) U/L Urine Color (Yellow) Urine Appearance (Clear) Urine pH (5.0-9.0) Ur Specific Pratt (1.001-1.035) Urine Protein (Negative) mg/dL Urine Glucose (UA) (Negative) mg/dL Urine Ketones (Negative) mg/dL Ur Blood (Man) (Negative) Urine Nitrate (Negative) Urine Bilirubin (Negative) Urine Urobilinogen (<2.0) mg/dL Add Ur Microanalysis Leukocyte Esterase Rfl (Negative) MEG/UL Urine RBC (0-2) /hpf Urine WBC (0-3) /hpf Ur Squamous Epith Cells (Few) /hpf Urine Bacteria /hpf Urine Casts Influenza A (RT-PCR) (Negative) Influenza B (RT-PCR) (Negative) RSV (RT-PCR) (Negative) SARS-CoV-2 RNA (RT-PCR) (Negative) ABG Data ABG results: 03/22/25 21:36 Puncture Site Right radial ABG pH 7.434 ABG pCO2 49.5 H ABG pO2 100.4 H ABG PO2/FiO2 Ratio 2.79 ABG HCO3 32.4 H ABG O2 Saturation 97.7 ABG O2 Content 15.0 L ABG Base Excess 7.1 A-a Gradient 98.9 Oxyhemoglobin 96.8 Total Hemoglobin 10.9 L O2 Delivery Device Nasal cannula O2 Liters/Min 3.0 FiO2 36 Discharge Plan Discharge Clinical Impression: Acute UTI, Elevated troponin, Altered mental status, Frequent falls Patient Disposition: Still a Patient Condition: Stable Patient Language: Djiboutian Prescriptions: No Action carvedilol 25 mg tablet 25 mg PO BID aspirin 81 mg tablet,delayed release (DR/EC) 81 mg PO DAILY insulin lispro 100 unit/mL insulin pen 4 unit subcut .TIDAC loratadine [Claritin] 10 mg tablet 10 mg PO DAILY insulin glargine [Lantus Solostar U-100 Insulin] 100 unit/mL (3 mL) insulin pen 6 unit subcut HS atorvastatin 20 mg tablet 20 mg PO HS tamsulosin 0.4 mg Capsule 0.4 mg PO QHS Qty: 30 0RF furosemide 80 mg Tablet 80 mg PO BID Qty: 60 0RF finasteride [Proscar] 5 mg Tablet 5 mg PO QAM Qty: 30 0RF acetaminophen-codeine 300-30 mg tablet 1 tablet PO Q6H PRN (Reason: pain, severe) bisacodyl [Laxative (bisacodyl)] 10 mg suppository 10 mg RECTAL DAILY PRN (Reason: constipation) Rx Instructions: If no results from the MOM. magnesium citrate [Citroma] Solution 296 ml PO .AM PRN (Reason: constipation) Rx Instructions: If no results after enema. Fleet Enema 19-7 gram/118 mL enema 118 ml RECTAL DAILY PRN (Reason: constipation) Rx Instructions: If no results 1 day after the bisacodyl suppository was administered. gabapentin 100 mg capsule 100 mg PO TID liraglutide 0.6 mg/0.1 mL (18 mg/3 mL) pen injector 1.2 mg subcut HS Rx Instructions: To start on 02/20/25. magnesium hydroxide [Milk of Magnesia] 400 mg/5 mL suspension 30 ml PO HS PRN (Reason: constipation) Rx Instructions: If no bowel movement in 3 days. vitamin B complex Capsule 1 cap PO DAILY Allergy Relief (loratadine) 10 mg capsule 10 mg PO DAILY PRN (Reason: itching) amlodipine 10 mg tablet 10 mg PO DAILY cinacalcet 90 mg PO DAILY acetaminophen 325 mg Tablet 650 mg PO Q4H PRN (Reason: Mild Pain (1-3) Or Fever) Qty: 60 0RF melatonin 3 mg tablet 3 mg PO HS baclofen 5 mg tablet 5 mg PO TID acetaminophen 325 mg tablet 650 mg PO TID tramadol 50 mg tablet 50 mg PO BID Incruse Ellipta 62.5 mcg/actuation blister with device 1 inh inhalation DAILY Combivent Respimat 20-100 mcg/actuation mist 1 puff inhalation Q6H PRN (Reason: shortness of breath or wheezing) losartan 100 mg tablet 100 mg PO DAILY PRN (Reason: blood pressure) Rx Instructions: give 100mg as needed for HTN give if SP>160 or DP >90 loperamide 2 mg capsule 2 mg PO Q4H PRN (Reason: loose stool) Rx Instructions: administer after each loose stool until symptoms controlled; do not exceed 8 mg per 24 hrs cyclobenzaprine 10 mg tablet 10 mg PO Q8H PRN (Reason: muscle spasm) sevelamer carbonate 0.8 gram Powder In Packet 0.8 g PO TIDWM levalbuterol HCl 1.25 mg/3 mL Solution For Nebulization 0.63 mg inhalation Q6HRT Qty: 30 0RF sevelamer carbonate 0.8 gram Powder In Packet 0.8 g PO TIDWM Qty: 60 0RF levalbuterol HCl 0.63 mg/3 mL solution for nebulization 0.63 mg inhalation Q6H PRN (Reason: shortness of breath or wheezing) Qty: 90 0RF pentoxifylline 400 mg tablet extended release 400 mg PO QPM Rx Instructions: must administer with a meal/food Follow-up/Referrals: Radha Carrion MD [Primary Care Provider] - Time of Disposition: 01:39
[2025-03-22 23:30] LABS: Influenza A QL RT-PCR Negative (Negative); Influenza B QL RT-PCR Negative (Negative); RSV RNA, RT-PCR Negative (Negative); SARS-CoV-2 RNA PCR Negative (Negative)
[2025-03-22] MEDS: ASPIRIN 81 MG CHEWABLE TABLET 324 MG PO (23:34)
[2025-03-23] VITALS (14 sets, daily range): BP systolic 132–156; BP diastolic 66–77; PULSE 58–100; RESP 13–20; TEMP 36.1–36.8; O2SAT 87–100; BMI 25.9
--- NOTE | 2025-03-23 00:54 | ECG_ITS ---
Test Date: 2025-03-23 00:50:33 Measurements Intervals [place] Rate: 66 P: 0 NM: 0 QRS: 256 QRSD: 167 T: 24 QT: 469 QTc: 493 Interpretive Statements ATRIAL FIBRILLATION RIGHT AXIS DEVIATION RIGHT BUNDLE BRANCH BLOCK BASELINE WANDER- I, III, AVR, AVL, AVF ABNORMAL ECG Compared to ECG 03/22/2025 21:31:35 NO SIGNIFICANT CHANGE Electronically Signed On 03-23-2025 06:17:36 CDT by Chiki Parra D.O.
--- NOTE | 2025-03-23 01:30 | PC.NURSE ---
Pt moved from room H3 to room 14 by this RN. Pt attached to monitor and O2. Call light within reach.
[2025-03-23 01:38] LABS: Troponin I 0.051 ng/mL (0.000-0.034)
--- NOTE | 2025-03-23 01:38 | PM.IMHP ---
H&P: HPI History of Present Illness Date/Time: 03/23/25 04:00 Chief Complaint: Altered mental status. Narrative: This is a chronically ill 79-year-old male with multiple medical problems including end-stage renal disease on hemodialysis, insulin-dependent type 2 diabetes mellitus, hypertension, hyperlipidemia, paroxysmal atrial fibrillation, coronary artery disease, mitral valve regurgitation, peripheral arterial disease, diastolic dysfunction, obstructive sleep apnea for which he is not very compliant with his CPAP, chronic obstructive pulmonary disease, benign prostatic hyperplasia, anemia, and chronic pain who presented to the emergency department via EMS from [facility] for evaluation of altered mental status. This will be his 7th admission to the hospital since mid November and his 3rd admission in the last 2 weeks. He frequently presents with altered mental status or generalized weakness with pretty unrevealing workups. I spoke with the nurse at his facility today and she indicated that he was seemingly more confused from baseline and was falling asleep during conversations. The patient told EMS that they were not giving him his CPAP to wear or that it was broken however nurse states that is not the case and that the patient frequently takes it off or refuses to use it. The patient has no complaints at the time of my evaluation and when I told him he could probably be discharged [facility] to the [facility], he got upset and said he did not want to go back. He denies fever, chills, sweats, headache, neck ache, sinus congestion, sore throat, chest pain, shortness of breath, cough, nausea, vomiting, diarrhea, and dysuria (he urinates a little bit, specimen obtained today via straight catheterization). He also denies vertigo, visual changes, facial droop, difficulty speaking and swallowing, focal weakness, and paresthesias. In the ED: Vital signs were stable on arrival. Labs or significant for a hemoglobin of 10.2, sodium 131, chloride 89, carbon dioxide 35, BUN 30, creatinine 4.81, troponin 0.050, proBNP greater than 30,000. All leads labs are stable compared to his baseline. ABG showed a pH of 7.434, pCO2 49.5, HC03 32.4. Urinalysis was positive for 4+ protein, 3+ blood, 3+ leukocyte esterase, 6 to 10 RBC, greater than 100 WBC. No bacteria were seen on microscopy. Brain CT and cervical spine CT were without acute findings but did show chronic findings. EKG showed known significant changes. Chest x-ray pending. He was given ceftriaxone 1 g for possible urinary tract infection and is being admitted in this setting. Review of Systems Review of Systems: 12 systems were reviewed and are negative except for as per HPI. [facility] Past Medical History Medical History (Updated 03/23/25 @ 06:24 by Frieda Suggs PA-C) Insulin dependent type 2 diabetes mellitus (~2009) Chronic obstructive pulmonary disease Diabetic polyneuropathy Coronary artery disease Anemia Atrial fibrillation Chronic neck and back pain Insomnia History of nephrolithiasis Sinus pause (~09/2024) Obstructive sleep apnea Intolerant to CPAP Benign prostatic hyperplasia Peripheral vascular disease (~03/2023) Internal hemorrhoid, bleeding End-stage renal disease on hemodialysis DVT dialysis Sunday History of colon polyps Environmental allergies Vitamin D deficiency Dyslipidemia Essential (primary) hypertension Surgical History Surgical History History of cardiac pacemaker (~10/2024) Medtronic pacemaker placed due to symptomatic sinus pauses causing syncope performed at [facility] Status post cataract extraction of both eyes with insertion of intraocular lens History of colonoscopy with polypectomy History of hemorrhoidectomy (~01/12/24) Anorectal evaluation under anesthesia and excisional hemorrhoidectomy x3 12/14/23 SAW S/P peripheral artery angioplasty (~03/2023) status post balloon angioplasty of bilateral common and external iliac arteries status post left iliofemoral endarterectomy Arteriovenous fistula of left upper extremity (~2017) History of appendectomy (~1963) History of coronary artery bypass graft (~2013) Family History Family History Mother Diabetes mellitus Acute myocardial infarction Family history of congestive heart failure Father Hypertension Social History Social History Social History: The patient is . He and his brother live together prior to his recent hospitalization and placement in to [facility]. He is retired after 26 years of serving in the [employer]. He has 4 children. He used to smoke 1.5-2 packs of cigarettes per day but quit smoking in approximately 2009. He will on a rare occasion drink an alcoholic beverage maybe 2 to 3 times a year. He denies illicit substance use. Surrogate medical decision maker: Wilian Morrissey, sibling. Code status: Full code. Caffeine- daily Smoking packs per day: 1.5 Smoking cigarettes per day: 30.0 Years smoked: 44 Smoking pack-years: 66.00 Smoking status: Unknown if ever smoked Second hand tobacco smoke exposure: No Alcohol intake: unknown Alcohol use details: Maybe 2-3 per year Substance use: unknown Substance use type: does not use Do You Feel Safe in your Home?: Yes Lack of Transportation: YES Lack of Food: Sometimes True Current Housing: I Have Housing Concerned About Future Housing: No Difficulty Paying Gas/Electric Bills: No Difficulty Paying for Meds: No Currently Unemployed: No Education: Don't Know Difficulty w/ Childcare or Family Care: No Living arrangements: with family Occupation/Education: retired Additional occupation/education comments: Retired from the [employer]. Spiritual care concerns: No Agree to blood products: Yes Meds Home Medications and Allergies Home Medications ?Medication ?Instructions ?Recorded ?Confirmed ?Type aspirin 81 mg tablet,delayed 81 mg PO DAILY 10/31/21 03/23/25 History release carvedilol 25 mg tablet 25 mg PO BID 10/31/21 03/23/25 History insulin lispro 100 unit/mL 4 unit subcut .TIDAC 10/31/21 03/23/25 History subcutaneous pen loratadine 10 mg tablet (Claritin) 10 mg PO DAILY 10/31/21 03/23/25 History insulin glargine 100 unit/mL (3 6 unit subcut HS 11/07/23 03/23/25 History mL) subcutaneous pen (Lantus Solostar U-100 Insulin) cinacalcet 90 mg PO DAILY 12/12/23 03/23/25 History atorvastatin 20 mg tablet 20 mg PO HS 12/21/24 03/23/25 History finasteride 5 mg tablet (Proscar) 5 mg PO QAM #30 tabs 12/23/24 03/23/25 Rx furosemide 80 mg tablet 80 mg PO BID #60 tabs 12/23/24 03/23/25 Rx tamsulosin 0.4 mg capsule 0.4 mg PO QHS #30 caps 12/23/24 03/23/25 Rx acetaminophen 325 mg tablet 650 mg (2 x 325 mg) PO Q4H PRN 01/10/25 03/23/25 Rx Mild Pain (1-3) Or Fever #60 tabs pentoxifylline 400 mg 400 mg PO QPM 01/29/25 03/23/25 History tablet,extended release acetaminophen 300 mg-codeine 30 mg 1 tablet PO Q6H PRN pain, severe 02/16/25 03/23/25 History tablet amlodipine 10 mg tablet 10 mg PO DAILY 02/16/25 03/23/25 History bisacodyl 10 mg rectal suppository 10 mg RECTAL DAILY PRN constipation 02/16/25 03/23/25 History (Laxative (bisacodyl)) gabapentin 100 mg capsule 100 mg PO TID 02/16/25 03/23/25 History liraglutide 0.6 mg/0.1 mL (18 mg/3 1.2 mg subcut HS 02/16/25 03/23/25 History mL) subcutaneous pen injector loratadine 10 mg capsule (Allergy 10 mg PO DAILY PRN itching 02/16/25 03/23/25 History Relief (loratadine)) magnesium citrate (Citroma oral 296 ml PO .AM PRN constipation 02/16/25 03/23/25 History solution) magnesium hydroxide 400 mg/5 mL 30 ml PO HS PRN constipation 02/16/25 03/23/25 History oral suspension (Milk of Magnesia) sodium phosphates 19 gram-7 118 ml RECTAL DAILY PRN 02/16/25 03/23/25 History gram/118 mL enema (Fleet Enema) constipation vitamin B complex 1 cap PO DAILY 02/16/25 03/23/25 History acetaminophen 325 mg tablet 650 mg PO TID 03/10/25 03/23/25 History baclofen 5 mg tablet 5 mg PO TID 03/10/25 03/23/25 History cyclobenzaprine 10 mg tablet 10 mg PO Q8H PRN muscle spasm 03/10/25 03/23/25 History ipratropium 20 mcg-albuterol 100 1 puff inhalation Q6H PRN 03/10/25 03/23/25 History mcg/actuation mist for inhalation shortness of breath or wheezing (Combivent Respimat) loperamide 2 mg capsule 2 mg PO Q4H PRN loose stool 03/10/25 03/23/25 History losartan 100 mg tablet 100 mg PO DAILY PRN blood pressure 03/10/25 03/23/25 History melatonin 3 mg tablet 3 mg PO HS 03/10/25 03/23/25 History tramadol 50 mg tablet 50 mg PO BID 03/10/25 03/23/25 History umeclidinium 62.5 mcg/actuation 1 inh inhalation DAILY 03/10/25 03/23/25 History blister powder for inhalation (Incruse Ellipta) sevelamer carbonate 0.8 gram oral 0.8 g PO TIDWM 03/14/25 03/23/25 History powder packet levalbuterol HCl 0.63 mg/3 mL 0.63 mg (3 mL) inhalation Q6H PRN 03/19/25 03/23/25 Rx solution for nebulization shortness of breath or wheezing #90 mL levalbuterol HCl 1.25 mg/3 mL 0.63 mg (1.512 mL) inhalation 03/19/25 03/23/25 Rx solution for nebulization Q6HRT #30 vials sevelamer carbonate 0.8 gram oral 0.8 g PO TIDWM #60 grams 03/19/25 03/23/25 Rx powder packet Allergies Allergy/AdvReac Type Severity Reaction Status Date / Time No Known Allergies Allergy Verified 03/23/25 02:56 Vital Signs Vital Signs - 24 hr 03/22/25 20:59 03/22/25 21:34 Temperature 97.8 F Pulse Rate 65 67 Respiratory Rate 18 18 Blood Pressure 155/82 H 143/60 H Pulse Oximetry 98 97 Oxygen Delivery Nasal Cannula Oxygen Flow Rate 3 Exam Narrative: General: Chronically ill-appearing male in the semi-Marcum position in bed. He falls asleep easily during our conversation and requires constant stimuli to stay awake. Weight: 84.6 kg. BMI: 26.0. HEENT: Normocephalic, atraumatic. PERRL, EOMI. Sclera anicteric. Conjunctiva mildly injected. Tacky mucous membranes. Neck: Supple. No obvious bruits or thyromegaly. Respiratory: Respirations are nonlabored. Lung sounds are a bit diminished due to poor effort. Cardiovascular: Regular rate and rhythm with S1-S2. Soft murmur at the apex and left lower sternal border. Gastrointestinal: Abdomen is soft, nontender, and nondistended with positive bowel sounds. Skin: Warm and dry. Scattered bruises. Extremities: No cyanosis, clubbing, or significant edema. Left upper extremity fistula with palpable thrill and bruit. Neurological: Alert and oriented to name, age, date of , and place. Cranial nerves 2-12 are grossly intact. Speech is clear though he does mumble somewhat. No facial asymmetry. Hand public welfare director and foot pushes seem equal bilaterally. No gross focal deficits. Psychiatric: Difficult to assess as he falls asleep frequently. He is cooperative and otherwise pleasant. H&P: Results Labs Labs: Short CBC 03/22/25 Range/Units 21:54 WBC 5.2 (4.5-10.0) K/mm3 Hgb 10.2 L (14.0-18.0) g/dL Hct 34.1 L (42.0-52.0) % Plt Count 180 (150-375) k/mm3 BMP 03/22/25 21:54 Sodium 131 L Potassium 4.1 Chloride 89 L Carbon Dioxide 35 H BUN 30 H D Creatinine 4.81 H Glucose 120 H Calcium 9.4 Cardiac Enzymes 03/22/25 03/23/25 Range/Units 21:54 00:52 Troponin I 0.050 H* 0.051 H* (0.000-0.034) ng/mL Liver Function 03/22/25 Range/Units 21:54 Total Bilirubin 0.3 (0.2-1.3) mg/dL AST 15 L (17-59) U/L ALT 9 (6-50) U/L Alkaline Phosphatase 57 (38-126) U/L Albumin 3.5 (3.5-5.1) g/dL Urine 03/22/25 Range/Units 22:27 Urine Color Yellow (Yellow) Urine Appearance Cloudy H (Clear) Urine pH 7.0 (5.0-9.0) Ur Specific [place] 1.014 (1.001-1.035) Urine Protein 4+ H (Negative) mg/dL Urine Glucose (UA) Negative (Negative) mg/dL Impressions Head CT 03/23/25 05:30 Impression: No intracranial hemorrhage, mass, or acute infarct. Atrophy and chronic white matter changes, as above. Right maxillary sinus disease. Cervical Spine CT 03/23/25 05:39 Impression: No acute fracture or subluxation of the cervical spine. Stable extensive erosive/destructive changes of the C4and C5 vertebral bodies in particular, with additional erosive change at the inferior aspect of C3 vertebral body, most likely related to severe chronic degenerative spondyloarthropathy versus possibly other inflammatory/erosive arthropathy. Stable advanced degenerative spondylitic changes in the cervical spine otherwise, as above. Assessment and Plan Assessment and plan (1) Somnolence: Code(s): R40.0 - Somnolence Status: Acute (2) Elevated troponin: Code(s): R79.89 - Other specified abnormal findings of blood chemistry Status: Acute (3) Chronic obstructive pulmonary disease: Code(s): J44.9 - Chronic obstructive pulmonary disease, unspecified Status: Acute (4) Obstructive sleep apnea: Code(s): G47.33 - Obstructive sleep apnea (adult) (pediatric) Status: Acute (5) Hypertension: Code(s): I10 - Essential (primary) hypertension Status: Acute (6) Atrial fibrillation: Code(s): I48.91 - Unspecified atrial fibrillation Status: Chronic (7) Insulin dependent type 2 diabetes mellitus: Onset Date: ~2009 Code(s): E11.9 - Type 2 diabetes mellitus without complications; Z79.4 - rn long term care (current) use of insulin Status: Acute (8) End-stage renal disease on hemodialysis: Code(s): N18.6 - End stage renal disease; Z99.2 - Dependence on renal dialysis Status: Acute (9) Anemia: Code(s): D64.9 - Anemia, unspecified Status: Acute (10) Benign prostatic hyperplasia: Qualifiers: Lower urinary tract symptom detail: unspecified Code(s): N40.0 - Benign prostatic hyperplasia without lower urinary tract symptoms Status: Acute Plan The patient presented to the emergency department from his nursing facility for evaluation of altered mental status, more specifically he has apparently been a bit confused from baseline and somnolent, as detailed in HPI. Labs, imaging, EKG, and all reports were personally reviewed. He is alert and oriented to time my evaluation but he is somnolent and requires frequent stimuli to stay awake. It is the middle of the night however. According to the nurse at his facility, he is not compliant with his CPAP which is likely a contributing factor. He is on scheduled baclofen, tramadol, and has p.r.n. cyclobenzaprine which can cause somnolence as well. There are no concerning focal findings on examination and brain CT did not show any acute findings either. There is no evidence of infection (the patient urinates infrequently and while he has increased WBC and leukocyte esterase on urinalysis, no bacteria were seen and he does not give a history to suggest active urinary tract infection). There are no significant electrolyte abnormalities. In my opinion he seems to be at his baseline and I do not think there is any need to keep readmitting this patient when he presents with these findings unless something is drastically different as he will likely continue to exhibit somnolence and intermittent confusion with untreated sleep apnea in the setting of the use of several drugs which are SHOP COORDINATOR depressants including baclofen, cyclobenzaprine, and tramadol. Encourage incentive spirometry as he has shallow respirations. Troponin is chronically elevated, is flat, and is not indicative of acute coronary syndrome and no further workup is being pursued. He is in chronic atrial fibrillation and is rate controlled. He is not on anticoagulation and cannot tell me why. Blood pressures are stable. He can likely be discharged home later today however if kept for another night he will need to have Nephrology on board for dialysis. Continue basal insulin. Initiate sliding scale insulin, Accu-Cheks, and hypoglycemic protocol. He remains a full code. Findings and treatment plan were discussed with the patient. Questions were solicited and answered to satisfaction. The patient's medical management will be taken over by the hospitalist team in a.m. Quality VTE Prophylaxis VTE prophylaxis: pharmacologic ordered The patient has been admitted under observation status. Hospitalist [facility] Advance Care Plan I have confirmed that the patient's Advanced Care Plan is present, code status is documented, or surrogate decision maker is listed in patient medical record.: Yes Medication Reconciliation I have utilized all available resources to obtain, update and review the patients current medications (includes all prescriptions, OTC, herbals, cannabis, and nutritional supplements).: Yes
--- NOTE | 2025-03-23 03:17 | PC.NURSE ---
PATIENT ARRIVED ON 3 MEDSURG AT 0245
--- NOTE | 2025-03-23 06:50 | PCRCNOTE ---
[facility] not notified of ABG until 6:50am
[2025-03-23 06:57] LABS: Hematocrit 35.6 % (42.0-52.0); Hemoglobin 10.4 g/dL (14.0-18.0); Mean Corpuscular HGB Conc 29.2 g/dl (32-36); Mean Corpuscular Hemoglobin 26.3 pg (26-34); Mean Corpuscular Volume 89.9 fl (80-100); Mean Platelet Volume 10.9 fl (7.4-10.4); Platelet Count Result 179 k/mm3 (150-375); Red Blood Count 3.96 M/mm3 (4.6-6.20); Red Cell Distribution Width 17.8 % (11.5-14.5); White Blood Count 5.6 K/mm3 (4.5-10.0)
[2025-03-23 07:06] LABS: Ammonia < 9 umol/L (9-30)
[2025-03-23 07:10] LABS: Anion Gap 9 mmol/L (4-12); Blood Urea Nitrogen 32 mg/dL (9-20); Calcium 9.5 mg/dL (8.4-10.2); Carbon Dioxide 31 mmol/L (22-30); Chloride 90 mmol/L (98-107); Estimated CRCL calculation 13 ml/min; Estimated Glomerular Filt Rate 13; Glucose 107 mg/dL (65-110); Magnesium 2.2 mg/dL (1.6-2.3); Potassium 4.3 mmol/L (3.4-5.0); Sodium 130 mmol/L (137-145)
[2025-03-23 07:42] LABS: Base Excess ABG 1.7 mEq/l (+/-2.0); Carboxyhemoglobin 1.1 % THb (0-2.0); Fractional Inspired Oxygen 32 %; HCO3 ABG 28.1 mEq/l (22.0-26.0); Methemoglobin ABG 0.3 %THb (0-1.5); Oxygen Content ABG 15.3 %vol (16.0-22.0); Oxygen Saturation ABG 96.5 % (95.0-100.0); Oxyhemoglobin 95.6 % THb (90.0-100.0); PCO2 ABG 52.4 mmHg (35.0-45.0); PO2 ABG 91.9 mmHg (80.0-100.0); PO2 FiO2 Ratio Arterial Blood 2.87 %; Total Hemoglobin 11.3 g/dL (12.0-18.0); pH ABG 7.347 (7.350-7.450)
[2025-03-23 07:44] LABS: Glucose Point of Care 110 mg/dl (65-105)
[2025-03-23 07:44] LABS: Device NASAL CANNULA; Modified Allen's Test Pass; Site Drawn RIGHT RADIAL
[2025-03-23] MEDS: INSULIN ASPART (*BKC) 100 UNITS/ML SUB-Q ×3 (09:47→17:10)
[2025-03-23] MEDS: HEPARIN SODIUM 5,000 UNITS/ML VIAL 5000 UNITS SUB-Q (09:48)
[2025-03-23] MEDS: FUROSEMIDE 80 MG TABLET PO ×2 (09:48→17:05)
[2025-03-23] MEDS: VITAMIN B COMPLEX CAPSULE 1 CAP PO (09:48)
[2025-03-23] MEDS: LORATADINE 10 MG TABLET PO (09:48)
[2025-03-23] MEDS: GABAPENTIN 100 MG CAPSULE PO ×3 (09:48→17:05)
[2025-03-23] MEDS: FINASTERIDE 5 MG TABLET PO (09:48)
[2025-03-23] MEDS: ASPIRIN 81 MG ENTERIC TABLET PO (09:48)
[2025-03-23] MEDS: amLODIPine BESYLATE 10 MG TABLET PO (09:48)
[2025-03-23] MEDS: CINACALCET 30 MG TABLET 90 MG PO (09:48)
[2025-03-23] MEDS: carvediloL 25 MG TABLET PO ×2 (09:49→21:20)
[2025-03-23] MEDS: UMECLIDINIUM BROMIDE 62.5 MCG ELLIPTA 1 PUFF INHALATION (11:36)
[2025-03-23 12:07] LABS: Glucose Point of Care 106 mg/dl (65-105)
[2025-03-23] MEDS: SEVELAMER CARBONATE 0.8 GM ORAL POWDER PACKET PO ×2 (12:15→17:22)
--- NOTE | 2025-03-23 12:20 | PCRCNOTE ---
0639 STAT ABG delay due to not being notified.
--- NOTE | 2025-03-23 15:24 | P.CONNP_ITS ---
Assessment and Plan Assessment and plan (1) End stage renal disease: Code(s): N18.6 - End stage renal disease Status: Chronic Assessment and Plan: * The patient has end-stage renal disease. * This is most likely related to his diabetes hypertension and vascular disease. * He dialyzes 3 times a week at [facility]. He usually shows up for his treatment when not in the hospital. * HD is due tomorrow. * continue T/T/S outpatient dialysis schedule * Volume status seems pretty good. He has a tiny bit of swelling. We will take some fluid off Tomorrow. * Potassium is okay. (2) Altered mental status: Code(s): R41.82 - Altered mental status, unspecified Status: Acute Assessment and Plan: * The patient has change in mental status. * He had imaging of his brain which was okay. * Electrolytes look okay. His sodium is slightly low but not low enough to cause mental status changes. * His BUN is little high but also not high enough to cause this. * This is likely related to his UTI. (3) Volume overload: Code(s): E87.70 - Fluid overload, unspecified Status: Acute Assessment and Plan: * He has chronic volume overload because he drinks a lot of fluid in the care home. Will take off some fluid tomorrow. * On exam he does not look too bad and he is not on oxygen. (4) Atrial fibrillation: Code(s): I48.91 - Unspecified atrial fibrillation Status: Chronic Assessment and Plan: * rate control strategy * restarted anticoagulation (Eliquis) last hospitalization * apparently previously held due to issues with GI bleeding (5) Hypercalcemia: Code(s): E83.52 - Hypercalcemia Status: Chronic Assessment and Plan: * This is good this time around. (6) Anemia: Code(s): D64.9 - Anemia, unspecified Status: Chronic Assessment and Plan: * due to ESRD * Epogen with HD * Hemoglobin 10 today. (7) Essential (primary) hypertension: Code(s): I10 - Essential (primary) hypertension Status: Chronic Assessment and Plan: * Systolic 140s to 170s. Will remove fluid tomorrow and see how it looks (8) IDDM (insulin dependent diabetes mellitus): Status: Chronic Assessment and Plan: * follow accu-cheks * glycemic control per hospitalist L History of Present Illness Reason for Consult Consult date: 03/23/25 Chief Complaint Chief complaint: Altered mental status, abnormal urinalysis, freque History of Present Illness Narrative: Sam is a very pleasant 79-year-old gentleman who has multiple medical problems including end-stage renal disease on dialysis 3 times a week on Tuesdays and Saturdays, history of congestive heart failure, hypertension, diabetes, hyperlipidemia, paroxysmal atrial fibrillation, coronary artery disease, mitral valve regurgitation, history of sudden , peripheral vascular disease especially in the lower extremities, diastolic dysfunction, obstructive sleep apnea and does not use CPAP machine regularly, BPH, anemia, renal osteodystrophy, history of kidney stones, BPH, vitamin-D deficiency. Patient came in the hospital because of changes in mental status. He was seen in the emergency room and found to have a bladder infection. He was placed on antibiotics and admitted. Currently the patient recognizes me. He answers some yes no questions but then falls asleep fairly quickly when unstimulated. He has no pain. Review of Systems 2 Constitutional: Constitutional: Reports no additional constitutional complaints Eyes: Eyes: Reports no additional eye complaints ENT: Reports system reviewed and no additional complaints, except as documented Cardiovascular: Cardiovascular: Reports no additional cardiovascular complaints Respiratory: Respiratory: Reports no additional respiratory complaints Gastrointestinal: Gastrointestinal: Reports no additional gastrointestinal complaints Genitourinary: Genitourinary: Reports no additional male genitourinary complaints Musculoskeletal: Musculoskeletal: Reports no additional musculoskeletal complaints Integumentary/Breasts: Skin/Breast: Reports system reviewed and no additional complaints, except as docu Neurologic: Reports system reviewed and no additional complaints, except as documented Psychiatric: Psychiatric: Reports no additional psychiatric complaints Endocrine: Endocrine: Reports no additional endocrine complaints [facility] Past Medical History Medical History Diabetic polyneuropathy Insomnia History of nephrolithiasis Chronic neck and back pain Atrial fibrillation Anemia Sinus pause (~09/2024) Obstructive sleep apnea Intolerant to CPAP Insulin dependent type 2 diabetes mellitus (~2009) Chronic obstructive pulmonary disease Coronary artery disease Benign prostatic hyperplasia Peripheral vascular disease (~03/2023) Internal hemorrhoid, bleeding End-stage renal disease on hemodialysis DVT dialysis Sunday History of colon polyps Environmental allergies Vitamin D deficiency Dyslipidemia Essential (primary) hypertension Surgical History Surgical History Status post cataract extraction of both eyes with insertion of intraocular lens History of colonoscopy with polypectomy History of cardiac pacemaker (~10/2024) Medtronic pacemaker placed due to symptomatic sinus pauses causing syncope performed at [facility] History of hemorrhoidectomy (~01/12/24) Anorectal evaluation under anesthesia and excisional hemorrhoidectomy x3 12/14/23 [facility] S/P peripheral artery angioplasty (~03/2023) status post balloon angioplasty of bilateral common and external iliac arteries status post left iliofemoral endarterectomy Arteriovenous fistula of left upper extremity (~2017) History of appendectomy (~1962) History of coronary artery bypass graft (~2013) Family History Family History Mother Diabetes mellitus Acute myocardial infarction Family history of congestive heart failure Father Hypertension Social History Social History Social History: The patient is . He and his brother live together prior to his recent hospitalization and placement in to [facility]. He is retired after 26 years of serving in the [employer]. He has 4 children. He used to smoke 1.5-2 packs of cigarettes per day but quit smoking in approximately 2009. He will on a rare occasion drink an alcoholic beverage maybe 2 to 3 times a year. He denies illicit substance use. Surrogate medical decision maker: Wilian Morrissey, sibling. Code status: Full code. Caffeine- daily Smoking packs per day: 1.5 Smoking cigarettes per day: 30.0 Years smoked: 44 Smoking pack-years: 66.00 Smoking status: Unknown if ever smoked Second hand tobacco smoke exposure: No Alcohol intake: unknown Alcohol use details: Maybe 2-3 per year Substance use: unknown Substance use type: does not use Do You Feel Safe in your Home?: Yes Lack of Transportation: YES Lack of Food: Sometimes True Current Housing: I Have Housing Concerned About Future Housing: No Difficulty Paying Gas/Electric Bills: No Difficulty Paying for Meds: No Currently Unemployed: No Education: Don't Know Difficulty w/ Childcare or Family Care: No Living arrangements: with family Occupation/Education: retired Additional occupation/education comments: Retired from the [employer]. Spiritual care concerns: No Agree to blood products: Yes Meds Home Medications and Allergies Home Medications ?Medication ?Instructions ?Recorded ?Confirmed ?Type aspirin 81 mg tablet,delayed 81 mg PO DAILY 10/31/21 03/23/25 History release carvedilol 25 mg tablet 25 mg PO BID 10/31/21 03/23/25 History insulin lispro 100 unit/mL 4 unit subcut .TIDAC 10/31/21 03/23/25 History subcutaneous pen loratadine 10 mg tablet (Claritin) 10 mg PO DAILY 10/31/21 03/23/25 History insulin glargine 100 unit/mL (3 6 unit subcut HS 11/07/23 03/23/25 History mL) subcutaneous pen (Lantus Solostar U-100 Insulin) cinacalcet 90 mg PO DAILY 12/12/23 03/23/25 History atorvastatin 20 mg tablet 20 mg PO HS 12/21/24 03/23/25 History finasteride 5 mg tablet (Proscar) 5 mg PO QAM #30 tabs 12/23/24 03/23/25 Rx furosemide 80 mg tablet 80 mg PO BID #60 tabs 12/23/24 03/23/25 Rx tamsulosin 0.4 mg capsule 0.4 mg PO QHS #30 caps 12/23/24 03/23/25 Rx acetaminophen 325 mg tablet 650 mg (2 x 325 mg) PO Q4H PRN 01/10/25 03/23/25 Rx Mild Pain (1-3) Or Fever #60 tabs pentoxifylline 400 mg 400 mg PO QPM 01/29/25 03/23/25 History tablet,extended release acetaminophen 300 mg-codeine 30 mg 1 tablet PO Q6H PRN pain, severe 02/16/25 03/23/25 History tablet amlodipine 10 mg tablet 10 mg PO DAILY 02/16/25 03/23/25 History bisacodyl 10 mg rectal suppository 10 mg RECTAL DAILY PRN constipation 02/16/25 03/23/25 History (Laxative (bisacodyl)) gabapentin 100 mg capsule 100 mg PO TID 02/16/25 03/23/25 History liraglutide 0.6 mg/0.1 mL (18 mg/3 1.2 mg subcut HS 02/16/25 03/23/25 History mL) subcutaneous pen injector loratadine 10 mg capsule (Allergy 10 mg PO DAILY PRN itching 02/16/25 03/23/25 History Relief (loratadine)) magnesium citrate (Citroma oral 296 ml PO .AM PRN constipation 02/16/25 03/23/25 History solution) magnesium hydroxide 400 mg/5 mL 30 ml PO HS PRN constipation 02/16/25 03/23/25 History oral suspension (Milk of Magnesia) sodium phosphates 19 gram-7 118 ml RECTAL DAILY PRN 02/16/25 03/23/25 History gram/118 mL enema (Fleet Enema) constipation vitamin B complex 1 cap PO DAILY 02/16/25 03/23/25 History acetaminophen 325 mg tablet 650 mg PO TID 03/10/25 03/23/25 History baclofen 5 mg tablet 5 mg PO TID 03/10/25 03/23/25 History cyclobenzaprine 10 mg tablet 10 mg PO Q8H PRN muscle spasm 03/10/25 03/23/25 History ipratropium 20 mcg-albuterol 100 1 puff inhalation Q6H PRN 03/10/25 03/23/25 History mcg/actuation mist for inhalation shortness of breath or wheezing (Combivent Respimat) loperamide 2 mg capsule 2 mg PO Q4H PRN loose stool 03/10/25 03/23/25 History losartan 100 mg tablet 100 mg PO DAILY PRN blood pressure 03/10/25 03/23/25 History melatonin 3 mg tablet 3 mg PO HS 03/10/25 03/23/25 History tramadol 50 mg tablet 50 mg PO BID 03/10/25 03/23/25 History umeclidinium 62.5 mcg/actuation 1 inh inhalation DAILY 03/10/25 03/23/25 History blister powder for inhalation (Incruse Ellipta) sevelamer carbonate 0.8 gram oral 0.8 g PO TIDWM 03/14/25 03/23/25 History powder packet levalbuterol HCl 0.63 mg/3 mL 0.63 mg (3 mL) inhalation Q6H PRN 03/19/25 03/23/25 Rx solution for nebulization shortness of breath or wheezing #90 mL levalbuterol HCl 1.25 mg/3 mL 0.63 mg (1.512 mL) inhalation 03/19/25 03/23/25 Rx solution for nebulization Q6HRT #30 vials sevelamer carbonate 0.8 gram oral 0.8 g PO TIDWM #60 grams 03/19/25 03/23/25 Rx powder packet Allergies Allergy/AdvReac Type Severity Reaction Status Date / Time No Known Allergies Allergy Verified 03/23/25 02:56 Vital Signs Vital Signs - 24 hr 03/22/25 20:59 03/22/25 21:34 03/23/25 02:12 Temperature 97.8 F Pulse Rate 65 67 58 L Respiratory Rate 18 18 13 Blood Pressure 155/82 H 143/60 H 132/69 Pulse Oximetry 98 97 100 Oxygen Delivery Nasal Cannula Oxygen Flow Rate 3 03/23/25 03:26 03/23/25 03:40 03/23/25 06:00 Temperature 97.1 F L 96.9 F L Pulse Rate 63 63 Respiratory Rate 16 17 Blood Pressure 156/77 H 155/66 H Pulse Oximetry 100 98 100 Oxygen Delivery Nasal Cannula Oxygen Flow Rate 2 03/23/25 09:45 03/23/25 09:49 03/23/25 11:39 Temperature Pulse Rate 100 74 Respiratory Rate 20 Blood Pressure Pulse Oximetry 98 97 Oxygen Delivery Room Air Room Air Oxygen Flow Rate 03/23/25 11:40 03/23/25 15:01 03/23/25 15:02 Temperature Pulse Rate 75 Respiratory Rate 20 Blood Pressure Pulse Oximetry 87 L 97 Oxygen Delivery Room Air Oxygen Flow Rate 1 Exam 2 Narrative: Exam Narrative: Well developed well-nourished male in no acute distress Skin is warm and dry without rash Head normocephalic atraumatic Eyes normal sclerae and conjunctivae Mouth normal lips teeth and gums Neck no nodes no thyromegaly no carotid bruits Axillae no nodes Back no CVA tenderness Lungs symmetric and clear to auscultation and percussion Heart irregular irregular rhythm without rub or gallop Abdomen bowel sounds positive soft nontender, no HSM, masses, or bruits. Extremities no cyanosis, clubbing, but 1+ bilateral edema Pulses 2+ equal in radial arteries Psychological not anxious or depressed Neuro alert when addressed but falls asleep when not; oriented x2 motor 5/5 cranial nerves 2-12 intact reflexes 2+ and equal in the biceps and patellar tendons cerebellar normal rapid alternating movements Results Lab Results 03/23/25 06:49 03/23/25 06:49 Lab results: Most recent lab results ABG pH 7.347 (7.350-7.450) L 03/23/25 07:37 ABG pCO2 52.4 mmHg (35.0-45.0) H 03/23/25 07:37 ABG pO2 91.9 mmHg (80.0-100.0) 03/23/25 07:37 ABG HCO3 28.1 mEq/l (22.0-26.0) H 03/23/25 07:37 ABG O2 Saturation 96.5 % (95.0-100.0) 03/23/25 07:37 Calcium 9.5 mg/dL (8.4-10.2) 03/23/25 06:49 Magnesium 2.2 mg/dL (1.6-2.3) 03/23/25 06:49
--- NOTE | 2025-03-23 15:32 | PM.IMPN ---
Progress Note: A&P Assessment and Plan (1) Somnolence: Code(s): R40.0 - Somnolence Status: Acute (2) Elevated troponin: Code(s): R79.89 - Other specified abnormal findings of blood chemistry Status: Acute (3) Chronic obstructive pulmonary disease: Code(s): J44.9 - Chronic obstructive pulmonary disease, unspecified Status: Acute (4) Obstructive sleep apnea: Code(s): G47.33 - Obstructive sleep apnea (adult) (pediatric) Status: Acute (5) Hypertension: Code(s): I10 - Essential (primary) hypertension Status: Acute (6) Atrial fibrillation: Code(s): I48.91 - Unspecified atrial fibrillation Status: Chronic (7) Insulin dependent type 2 diabetes mellitus: Onset Date: ~2009 Code(s): E11.9 - Type 2 diabetes mellitus without complications; Z79.4 - terminal make up operator (current) use of insulin Status: Acute (8) End-stage renal disease on hemodialysis: Code(s): N18.6 - End stage renal disease; Z99.2 - Dependence on renal dialysis Status: Acute (9) Anemia: Code(s): D64.9 - Anemia, unspecified Status: Acute (10) Benign prostatic hyperplasia: Qualifiers: Lower urinary tract symptom detail: unspecified Code(s): N40.0 - Benign prostatic hyperplasia without lower urinary tract symptoms Status: Acute Plan This is a chronically ill 79-year-old male with multiple medical problems including end-stage renal disease on hemodialysis, insulin-dependent type 2 diabetes mellitus, hypertension, hyperlipidemia, paroxysmal atrial fibrillation, coronary artery disease, mitral valve regurgitation, peripheral arterial disease, diastolic dysfunction, obstructive sleep apnea for which he is not very compliant with his CPAP, chronic obstructive pulmonary disease, benign prostatic hyperplasia, anemia, and chronic pain who presented to the emergency department via EMS from [facility] for evaluation of altered mental status. This will be his 7th admission to the hospital since mid November and his 3rd admission in the last 2 weeks. He frequently presents with altered mental status or generalized weakness with pretty unrevealing workups. nurse at his facility indicated that he was seemingly more confused from baseline and was falling asleep during conversations. The patient told EMS that they were not giving him his CPAP to wear or that it was broken however nurse states that is not the case and that the patient frequently takes it off or refuses to use it. He denies fever, chills, sweats, headache, neck ache, sinus congestion, sore throat, chest pain, shortness of breath, cough, nausea, vomiting, diarrhea, and dysuria (he urinates a little bit, specimen obtained today via straight catheterization). He also denies vertigo, visual changes, facial droop, difficulty speaking and swallowing, focal weakness, and paresthesias. In the ED: Vital signs were stable on arrival. Labs or significant for a hemoglobin of 10.2, sodium 131, chloride 89, carbon dioxide 35, BUN 30, creatinine 4.81, troponin 0.050, proBNP greater than 30,000. All leads labs are stable compared to his baseline. ABG showed a pH of 7.434, pCO2 49.5, HC03 32.4. Urinalysis was positive for 4+ protein, 3+ blood, 3+ leukocyte esterase, 6 to 10 RBC, greater than 100 WBC. No bacteria were seen on microscopy. Brain CT and cervical spine CT were without acute findings but did show chronic findings. EKG showed known significant changes. Chest x-ray possible left lower lobe pneumonia. He was given ceftriaxone 1 g for possible urinary tract infection and is being admitted in this setting. Altered mental status UTI Possible left lower lobe pneumonia Underlying sleep apnea noncompliant with CPAP Polypharmacy Mildly elevated troponin Chronic atrial fibrillation rate controlled not on anticoagulation which was discussed last admission and started on Eliquis Suspected cervical radiculopathy: Cervical CT from December 2024 showed chronic compression fracture of C4 and C5 along with multilevel facet joint disease and uncovertebral joint osteoarthritic changes. Could not get MRI due to pacemaker device. CT cervical spine repeat on February 2025 showed moderate neuroforaminal narrowing on left at C2 4-5 and on the right at C2-3. Erosive changes at C3-C4 and C4-C5 disc stasis these appear chronic. Bilateral shoulder x-ray October 2024 were unremarkable. Neurosurgery was consulted last admission plan for cervical MRI as an outpatient basis at MRI compatible facility. Orthopedic evaluated the patient fall. Chronic CHF diastolic. End-stage renal disease on hemodialysis nephrology consulted Chronic respiratory failure on oxygen at home Chronic anemia with no signs of bleeding Type 2 diabetes on insulin Atrial fibrillation anticoagulation intermittent neurological symptoms be related to this. His chads Vasc score is at least 5. Started on Eliquis. He likely had been off anticoagulation due to anemia requiring blood transfusion in 2023 CARITO on CPAP however noncompliant Coronary artery disease status post CABG in 2013 Cardiac pacemaker her due to sinus pauses October 2024 Peripheral artery disease status post angioplasty and endarterectomy bilateral lower extremities Disposition: PT OT to see DVT prophylaxis start Eliquis Code status full code Subjective Date/time seen: 03/23/25 15:32 Interval history: No overnight events. Mildly sleepy. Brother bedside and discussed with him. Review of Systems Review of Systems: All systems reviewed & are unremarkable except as noted in HPI and below Exam Narrative: General: Chronically ill-appearing male in the semi-Marcum position in bed. He falls asleep easily during our conversation and requires constant stimuli to stay awake. HEENT: Normocephalic, atraumatic. PERRL, EOMI. Sclera anicteric. Conjunctiva mildly injected. Tacky mucous membranes. Neck: Supple. No obvious bruits or thyromegaly. Respiratory: Respirations are nonlabored. Lung sounds are a bit diminished due to poor effort. Cardiovascular: Regular rate and rhythm with S1-S2. Soft murmur at the apex and left lower sternal border. Gastrointestinal: Abdomen is soft, nontender, and nondistended with positive bowel sounds. Skin: Warm and dry. Scattered bruises. Extremities: No cyanosis, clubbing, or significant edema. Left upper extremity fistula with palpable thrill and bruit. Neurological: Alert and oriented to name, age, date of , and place. Cranial nerves 2-12 are grossly intact. Speech is clear though he does mumble somewhat. No facial asymmetry. Hand derrick hand and foot pushes seem equal bilaterally. No gross focal deficits. Psychiatric: Difficult to assess as he falls asleep frequently. He is cooperative and otherwise pleasant. Objective Data Vital Signs Vital Signs: Vital Signs - 24 hr 03/22/25 20:59 03/22/25 21:34 03/23/25 02:12 Temperature 97.8 F Pulse Rate 65 67 58 L Respiratory Rate 18 18 13 Blood Pressure 155/82 H 143/60 H 132/69 Pulse Oximetry 98 97 100 Oxygen Delivery Nasal Cannula Oxygen Flow Rate 3 03/23/25 03:26 03/23/25 03:40 03/23/25 06:00 Temperature 97.1 F L 96.9 F L Pulse Rate 63 63 Respiratory Rate 16 17 Blood Pressure 156/77 H 155/66 H Pulse Oximetry 100 98 100 Oxygen Delivery Nasal Cannula Oxygen Flow Rate 2 03/23/25 09:45 03/23/25 09:49 03/23/25 11:39 Temperature Pulse Rate 100 74 Respiratory Rate 20 Blood Pressure Pulse Oximetry 98 97 Oxygen Delivery Room Air Room Air Oxygen Flow Rate 03/23/25 11:40 03/23/25 15:01 03/23/25 15:02 Temperature Pulse Rate 75 Respiratory Rate 20 Blood Pressure Pulse Oximetry 87 L 97 Oxygen Delivery Room Air Oxygen Flow Rate 1 Intake/Output Intake/Output: Intake & Output 03/20/25 03/21/25 03/22/25 03/23/25 23:59 23:59 23:59 23:59 Intake Total 290 Output Total 900 0 Balance -900 290 Meds/Results Medications: Active Medications Generic Name Dose Route Start Last Admin Trade Name Freq PRN Reason Stop Dose Admin Acetaminophen 650 mg 03/23/25 01:37 Acetaminophen 325 Mg Tablet PO Q4H PRN Mild Pain (1-3) or Fever Amlodipine Besylate 10 mg 03/23/25 09:00 03/23/25 09:48 Amlodipine Besylate 10 Mg Tablet PO 10 mg DAILY DAVID Administration Aspirin 81 mg 03/23/25 09:00 03/23/25 09:48 Aspirin 81 Mg Enteric Tablet PO 81 mg DAILY DAVID Administration Atorvastatin Calcium 20 mg 03/23/25 21:00 Atorvastatin 20 Mg Tablet PO HS DAVID Bisacodyl 10 mg 03/23/25 06:46 Bisacodyl 10 Mg Suppository RECTAL DAILY PRN constipation Carvedilol 25 mg 03/23/25 09:00 03/23/25 09:49 Carvedilol 25 Mg Tablet PO 25 mg Q12HR DAVID Administration Cinacalcet 90 mg 03/23/25 09:00 03/23/25 09:48 Cinacalcet 30 Mg Tablet PO 90 mg DAILY DAVID Administration Dextrose 12.5 gm 03/23/25 06:39 Dextrose 50% 25 Gm/50 Ml Syringe IV PUSH PRN PRN Hypoglycemia Protocol Finasteride 5 mg 03/23/25 09:00 03/23/25 09:48 Finasteride 5 Mg Tablet PO 5 mg QAM DAVID Administration Furosemide 80 mg 03/23/25 09:00 03/23/25 09:48 Furosemide 80 Mg Tablet PO 80 mg BID DAVID Administration Gabapentin 100 mg 03/23/25 09:00 03/23/25 12:16 Gabapentin 100 Mg Capsule PO 100 mg TID DAVID Administration Glucagon 1 mg 03/23/25 06:39 Glucagon For Inj 1 Mg Vial IM PRN PRN Hypoglycemia Protocol Glucose 15 gm 03/23/25 06:39 Glucose Oral Gel 15 Gm Of Glucse In 37.5 Gm Tube PO PRN PRN Hypoglycemia Protocol Heparin Sodium (Porcine) 5,000 units 03/23/25 09:00 03/23/25 09:48 Heparin Sodium 5,000 Units/Ml Vial SUB-Q 5,000 units Q12HR DAVID Administration Ceftriaxone Sodium 1 gm in 50 mls @ 100 mls/hr 03/23/25 23:00 Rocephin 1 Gm/Ns 50 Ml IVPB Q24H DAVID Dextrose 1,000 mls @ 100 mls/hr 03/23/25 06:39 Dextrose 5% 1,000 Ml IVPB PRN PRN Hypoglycemia Protocol Insulin Aspart 3 - 6 units 03/23/25 08:00 03/23/25 12:15 Insulin Aspart (*Bkc) 100 Units/Ml SUB-Q Not Given [facility] Protocol Insulin Aspart 1 - 3 units 03/23/25 21:00 Insulin Aspart (*Bkc) 100 Units/Ml SUB-Q HS [facility] Protocol Insulin Aspart 4 units 03/23/25 08:00 03/23/25 12:17 Insulin Aspart (*Bkc) 100 Units/Ml SUB-Q 4 units TIDWM DAVID Administration Insulin Glargine 6 units 03/23/25 21:00 Insulin Glargine (*Bkc) 100 Units/Ml SUB-Q HS [facility] Levalbuterol HCl 0.63 mg 03/23/25 08:00 Levalbuterol Neb 1.25 Mg/3 Ml INHALATION Q6HRT PRN Shortness Of Breath Or Wheezing Loratadine 10 mg 03/23/25 09:00 03/23/25 09:48 Loratadine 10 Mg Tablet PO 10 mg DAILY DAVID Administration Melatonin 3 mg 03/23/25 21:00 Melatonin 3 Mg Tablet PO HS [facility] Pentoxifylline 400 mg 03/23/25 18:00 Pentoxifylline 400 Mg Tabcr PO QPM [facility] Sevelamer Carbonate 0.8 gm 03/23/25 08:00 03/23/25 12:15 Sevelamer Carbonate 0.8 Gm Oral Powder Packet PO 0.8 gm TIDWM DAVID Administration Tamsulosin HCl 0.4 mg 03/23/25 21:00 Tamsulosin Hcl 0.4 Mg Capsule PO QHS DAVID Umeclidinium [place] 1 puff 03/23/25 08:00 03/23/25 11:36 Umeclidinium [place] 62.5 Mcg Ellipta INHALATION 1 puff DAILYRT DAVID Administration Vitamin B Complex 1 cap 03/23/25 09:00 03/23/25 09:48 Vitamin B Complex Capsule PO 1 cap DAILY DAVID Administration Radiology Results: ITS Impressions Chest X-Ray 03/23/25 05:29 Impression: Possible left lower lobe pneumonia. Loop recorder. Head CT 03/23/25 05:30 Impression: No intracranial hemorrhage, mass, or acute infarct. Atrophy and chronic white matter changes, as above. Right maxillary sinus disease. Cervical Spine CT 03/23/25 05:39 Impression: No acute fracture or subluxation of the cervical spine. Stable extensive erosive/destructive changes of the C4and C5 vertebral bodies in particular, with additional erosive change at the inferior aspect of C3 vertebral body, most likely related to severe chronic degenerative spondyloarthropathy versus possibly other inflammatory/erosive arthropathy. Stable advanced degenerative spondylitic changes in the cervical spine otherwise, as above. Labs Labs: Laboratory Results - last 24 hr 03/22/25 03/22/25 03/22/25 21:36 21:54 22:27 WBC 5.2 RBC 3.83 L Hgb 10.2 L Hct 34.1 L MCV 89.0 MCH 26.6 MCHC 29.9 L RDW 17.8 H Plt Count 180 MPV 10.9 H Immature Gran % (Auto) 0.4 Neut % (Auto) 72.4 Lymph % (Auto) 10.5 L [place] % (Auto) 13.0 H Eos % (Auto) 2.7 Baso % (Auto) 1.0 Lymph # (Auto) 0.54 L [place] # (Auto) 0.7 H Eos # (Auto) 0.1 Baso # (Auto) 0.1 Abs Immat Gran (auto) 0.02 Absolute Neuts (auto) 3.7 Absolute Nucleated RBC 0.000 Band Neutrophils % Not Reportable Nucleated RBC % 0.0 Platelet Estimate Adequate Hypochromasia 1+ Anisocytosis 1+ Schistocytes None seen PT 14.4 INR 1.1 APTT 35.8 Puncture Site Right radial ABG pH 7.434 ABG pCO2 49.5 H ABG pO2 100.4 H ABG PO2/FiO2 Ratio 2.79 ABG HCO3 32.4 H ABG O2 Saturation 97.7 ABG O2 Content 15.0 L ABG Base Excess 7.1 A-a Gradient 98.9 Oxyhemoglobin 96.8 Carboxyhemoglobin Methemoglobin Reduced Hemoglobin Total Hemoglobin 10.9 L O2 Delivery Device Nasal cannula O2 Liters/Min 3.0 FiO2 36 Sodium 131 L Potassium 4.1 Chloride 89 L Carbon Dioxide 35 H Anion Gap 7 BUN 30 H D Creatinine 4.81 H Estim Creat Clear Calc 13 Estimated GFR 12 L Glucose 120 H POC Capillary Glucose Lactic Acid Calcium 9.4 Magnesium 2.2 Total Bilirubin 0.3 AST 15 L ALT 9 Alkaline Phosphatase 57 Ammonia Troponin I 0.050 H* NT-Pro-B Natriuret Pep > 18809 H Total Protein 6.0 L Albumin 3.5 Lipase 17 L Vitamin B12 TSH (Reflex) Urine Color Yellow Urine Appearance Cloudy H Urine pH 7.0 Ur Specific [place] 1.014 Urine Protein 4+ H Urine Glucose (UA) Negative Urine Ketones Negative Ur Blood (Man) 3+ H Urine Nitrate Negative Urine Bilirubin Negative Urine Urobilinogen 0.2 Add Ur Microanalysis Reviewed Leukocyte Esterase Rfl 3+ H Urine RBC 6-10 H Urine WBC >100 H Ur Squamous Epith Cells None seen Urine Bacteria None seen Urine Casts 0-2 Influenza A (RT-PCR) Influenza B (RT-PCR) RSV (RT-PCR) SARS-CoV-2 RNA (RT-PCR) 03/22/25 03/23/25 03/23/25 22:37 00:52 06:49 WBC 5.6 RBC 3.96 L Hgb 10.4 L Hct 35.6 L MCV 89.9 MCH 26.3 MCHC 29.2 L RDW 17.8 H Plt Count 179 MPV 10.9 H Immature Gran % (Auto) Neut % (Auto) Lymph % (Auto) [place] % (Auto) Eos % (Auto) Baso % (Auto) Lymph # (Auto) [place] # (Auto) Eos # (Auto) Baso # (Auto) Abs Immat Gran (auto) Absolute Neuts (auto) Absolute Nucleated RBC Band Neutrophils % Nucleated RBC % Platelet Estimate Hypochromasia Anisocytosis Schistocytes PT INR APTT Puncture Site ABG pH ABG pCO2 ABG pO2 ABG PO2/FiO2 Ratio ABG HCO3 ABG O2 Saturation ABG O2 Content ABG Base Excess A-a Gradient Oxyhemoglobin Carboxyhemoglobin Methemoglobin Reduced Hemoglobin Total Hemoglobin O2 Delivery Device O2 Liters/Min FiO2 Sodium 130 L Potassium 4.3 Chloride 90 L Carbon Dioxide 31 H Anion Gap 9 BUN 32 H Creatinine 4.54 H Estim Creat Clear Calc 13 Estimated GFR 13 L Glucose 107 POC Capillary Glucose Lactic Acid 0.8 Calcium 9.5 Magnesium 2.2 Total Bilirubin AST ALT Alkaline Phosphatase Ammonia < 9 L Troponin I 0.051 H* NT-Pro-B Natriuret Pep Total Protein Albumin Lipase Vitamin B12 694.0 TSH (Reflex) 0.900 Urine Color Urine Appearance Urine pH Ur Specific [place] Urine Protein Urine Glucose (UA) Urine Ketones Ur Blood (Man) Urine Nitrate Urine Bilirubin Urine Urobilinogen Add Ur Microanalysis Leukocyte Esterase Rfl Urine RBC Urine WBC Ur Squamous Epith Cells Urine Bacteria Urine Casts Influenza A (RT-PCR) Negative Influenza B (RT-PCR) Negative RSV (RT-PCR) Negative SARS-CoV-2 RNA (RT-PCR) Negative 03/23/25 03/23/25 03/23/25 07:37 07:41 12:04 WBC RBC Hgb Hct MCV MCH MCHC RDW Plt Count MPV Immature Gran % (Auto) Neut % (Auto) Lymph % (Auto) [place] % (Auto) Eos % (Auto) Baso % (Auto) Lymph # (Auto) [place] # (Auto) Eos # (Auto) Baso # (Auto) Abs Immat Gran (auto) Absolute Neuts (auto) Absolute Nucleated RBC Band Neutrophils % Nucleated RBC % Platelet Estimate Hypochromasia Anisocytosis Schistocytes PT INR APTT Puncture Site Right radial ABG pH 7.347 L ABG pCO2 52.4 H ABG pO2 91.9 ABG PO2/FiO2 Ratio 2.87 ABG HCO3 28.1 H ABG O2 Saturation 96.5 ABG O2 Content 15.3 L ABG Base Excess 1.7 A-a Gradient 75.0 Oxyhemoglobin 95.6 Carboxyhemoglobin 1.1 Methemoglobin 0.3 Reduced Hemoglobin 3.0 Total Hemoglobin 11.3 L O2 Delivery Device Nasal cannula O2 Liters/Min 3.0 FiO2 32 Sodium Potassium Chloride Carbon Dioxide Anion Gap BUN Creatinine Estim Creat Clear Calc Estimated GFR Glucose POC Capillary Glucose 110 H 106 H Lactic Acid Calcium Magnesium Total Bilirubin AST ALT Alkaline Phosphatase Ammonia Troponin I NT-Pro-B Natriuret Pep Total Protein Albumin Lipase Vitamin B12 TSH (Reflex) Urine Color Urine Appearance Urine pH Ur Specific [place] Urine Protein Urine Glucose (UA) Urine Ketones Ur Blood (Man) Urine Nitrate Urine Bilirubin Urine Urobilinogen Add Ur Microanalysis Leukocyte Esterase Rfl Urine RBC Urine WBC Ur Squamous Epith Cells Urine Bacteria Urine Casts Influenza A (RT-PCR) Influenza B (RT-PCR) RSV (RT-PCR) SARS-CoV-2 RNA (RT-PCR)
[2025-03-23] MEDS: PENTOXIFYLLINE 400 MG TABCR PO (17:05)
[2025-03-23 17:10] LABS: Glucose Point of Care 107 mg/dl (65-105)
--- NOTE | 2025-03-23 18:51 | PCRCNOTE ---
Spoke with family extensively if CPAP or BIPAP was ordered on last discharged. Spoke with tie man Michelle and RT Kiley contacted Nataly Grande RT Director who walked us through previous chart on where to find previous admission settings for Bipap. Bipap settings found to be 16/8 RR 14. Bipap set up and programmed, delivered to patients room. Nataly Grande will look into pt's chart if anything else is needed.
[2025-03-23] MEDS: APIXABAN 2.5 MG TABLET PO (21:20)
[2025-03-23] MEDS: TAMSULOSIN HCL 0.4 MG CAPSULE PO (21:20)
[2025-03-23] MEDS: ATORVASTATIN 20 MG TABLET PO (21:20)
[2025-03-23] MEDS: INSULIN GLARGINE (*BKC) 100 UNITS/ML 6 UNITS SUB-Q (21:22)
[2025-03-23] MEDS: ACETAMINOPHEN 325 MG TABLET 650 MG PO (21:31)
[2025-03-23 22:07] LABS: Glucose Point of Care 160 mg/dl (65-105)
[2025-03-24] VITALS (26 sets, daily range): BP systolic 120–156; BP diastolic 40–76; PULSE 59–75; RESP 15–20; TEMP 36.2–37; O2SAT 93–100
[2025-03-24 06:44] LABS: Basophils Percent Auto 0.7 % (0.2-1.2); Eosinophils Absolute Auto 0.1 K/mm3 (0-0.3); Hematocrit 35.6 % (42.0-52.0); Hemoglobin 10.4 g/dL (14.0-18.0); Immature Granulocyte Absolute 0.03 K/mm3 (0.00-0.031); Immature Granulocyte Percent A 0.5 % (0-0.5); Lymphocytes Absolute Auto 0.67 K/mm3 (0.9-3.2); Mean Corpuscular HGB Conc 29.2 g/dl (32-36); Mean Corpuscular Hemoglobin 26.1 pg (26-34); Mean Corpuscular Volume 89.2 fl (80-100); Monocytes Absolute Auto 0.7 K/mm3 (0.1-0.6); Monocytes Percent Auto 12.9 % (2.6-8.5); Neutrophils Percent Auto 71.9 % (45.5-73.1); Platelet Count Result 197 k/mm3 (150-375); Red Blood Count 3.99 M/mm3 (4.6-6.20); White Blood Count 5.6 K/mm3 (4.5-10.0)
[2025-03-24 06:53] LABS: Alanine Aminotransferase 9 U/L (6-50); Albumin Level 3.7 g/dL (3.5-5.1); Alkaline Phosphatase 57 U/L (38-126); Anion Gap 11 mmol/L (4-12); Aspartate Amino Transferase 15 U/L (17-59); Bilirubin,Total 0.3 mg/dL (0.2-1.3); Blood Urea Nitrogen 42 mg/dL (9-20); Calcium 9.5 mg/dL (8.4-10.2); Carbon Dioxide 29 mmol/L (22-30); Chloride 90 mmol/L (98-107); Estimated CRCL calculation 11 ml/min; Estimated Glomerular Filt Rate 10; Glucose 110 mg/dL (65-110); Magnesium 2.3 mg/dL (1.6-2.3); Potassium 4.6 mmol/L (3.4-5.0); Sodium 130 mmol/L (137-145)
[2025-03-24 07:40] LABS: Anisocytosis 1+; Hypochromasia 1+; Platelet Estimate Adequate (Adequate); Schistocytes None Seen; Target Cells 1+
[2025-03-24 07:43] LABS: Glucose Point of Care 108 mg/dl (65-105)
[2025-03-24] MEDS: CINACALCET 30 MG TABLET 90 MG PO (08:11)
[2025-03-24] MEDS: SEVELAMER CARBONATE 0.8 GM ORAL POWDER PACKET PO ×3 (08:11→17:08)
[2025-03-24] MEDS: FINASTERIDE 5 MG TABLET PO (08:16)
[2025-03-24] MEDS: ASPIRIN 81 MG ENTERIC TABLET PO (08:16)
[2025-03-24] MEDS: carvediloL 25 MG TABLET PO ×2 (08:16→20:44)
[2025-03-24] MEDS: LORATADINE 10 MG TABLET PO (08:16)
[2025-03-24] MEDS: FUROSEMIDE 80 MG TABLET PO ×2 (08:16→17:07)
[2025-03-24] MEDS: APIXABAN 2.5 MG TABLET PO ×2 (08:17→20:45)
--- NOTE | 2025-03-24 09:16 | PCPTNOTE ---
Attempted PT evaluation, Pt in dialysis. Will follow.
[2025-03-24] MEDS: EPOETIN ALFA-EPBX 10,000 UNITS/ML VIAL 10000 UNITS IV PUSH (10:46)
[2025-03-24] MEDS: ACETAMINOPHEN 325 MG TABLET 650 MG PO ×2 (11:31→20:49)
[2025-03-24 12:30] LABS: Glucose Point of Care 79 mg/dl (65-105)
[2025-03-24] MEDS: amLODIPine BESYLATE 10 MG TABLET PO (14:05)
[2025-03-24] MEDS: VITAMIN B COMPLEX CAPSULE 1 CAP PO (14:06)
[2025-03-24] MEDS: GABAPENTIN 100 MG CAPSULE PO ×2 (14:06→17:07)
--- NOTE | 2025-03-24 15:18 | P.PNIM_ITS ---
Progress Note: A&P Assessment and Plan (1) Somnolence: Code(s): R40.0 - Somnolence Status: Acute (2) Elevated troponin: Code(s): R79.89 - Other specified abnormal findings of blood chemistry Status: Acute (3) Chronic obstructive pulmonary disease: Code(s): J44.9 - Chronic obstructive pulmonary disease, unspecified Status: Acute (4) Obstructive sleep apnea: Code(s): G47.33 - Obstructive sleep apnea (adult) (pediatric) Status: Acute (5) Hypertension: Code(s): I10 - Essential (primary) hypertension Status: Acute (6) Atrial fibrillation: Code(s): I48.91 - Unspecified atrial fibrillation Status: Chronic (7) Insulin dependent type 2 diabetes mellitus: Onset Date: ~2009 Code(s): E11.9 - Type 2 diabetes mellitus without complications; Z79.4 - intermediate manager (current) use of insulin Status: Acute (8) End-stage renal disease on hemodialysis: Code(s): N18.6 - End stage renal disease; Z99.2 - Dependence on renal dialysis Status: Acute (9) Anemia: Code(s): D64.9 - Anemia, unspecified Status: Acute (10) Benign prostatic hyperplasia: Qualifiers: Lower urinary tract symptom detail: unspecified Code(s): N40.0 - Benign prostatic hyperplasia without lower urinary tract symptoms Status: Acute Plan This is a chronically ill 79-year-old male with multiple medical problems including end-stage renal disease on hemodialysis, insulin-dependent type 2 diabetes mellitus, hypertension, hyperlipidemia, paroxysmal atrial fibrillation, coronary artery disease, mitral valve regurgitation, peripheral arterial disease, diastolic dysfunction, obstructive sleep apnea for which he is not very compliant with his CPAP, chronic obstructive pulmonary disease, benign prostatic hyperplasia, anemia, and chronic pain who presented to the emergency department via EMS from [facility] for evaluation of altered mental status. This will be his 7th admission to the hospital since mid November and his 3rd admission in the last 2 weeks. He frequently presents with altered mental status or generalized weakness with pretty unrevealing workups. nurse at his facility indicated that he was seemingly more confused from baseline and was falling asleep during conv ersations. The patient told EMS that they were not giving him his CPAP to wear or that it was broken however nurse states that is not the case and that the patient frequently takes it off or refuses to use it. He denies fever, chills, sweats, headache, neck ache, sinus congestion, sore throat, chest pain, shortness of breath, cough, nausea, vomiting, diarrhea, and dysuria (he urinates a little bit, specimen obtained today via straight catheterization). He also denies vertigo, visual changes, facial droop, difficulty speaking and swallowing, focal weakness, and paresthesias. In the ED: Vital signs were stable on arrival. Labs or significant for a hemoglobin of 10.2, sodium 131, chloride 89, carbon dioxide 35, BUN 30, creatinine 4.81, troponin 0.050, proBNP greater than 30,000. All leads labs are stable compared to his baseline. ABG showed a pH of 7.434, pCO2 49.5, HC03 32.4. Urinalysis was positive for 4+ protein, 3+ blood, 3+ leukocyte esterase, 6 to 10 RBC, greater than 100 WBC. No bacteria were seen on microscopy. Brain CT and cervical spine CT were without acute findings but did show chronic findings. EKG showed known significant changes. Chest x-ray possible left lower lobe pn eumonia. He was given ceftriaxone 1 g for possible urinary tract infection and is being admitted in this setting. Altered mental status improving likely multifactorial as noted below UTI urine culture with no growth. Currently on ceftriaxone. Possible left lower lobe pneumonia no respiratory symptoms Underlying sleep apnea noncompliant with CPAP Polypharmacy stopped his baclofen, cyclobenzaprine Mildly elevated troponin Chronic atrial fibrillation rate controlled not on anticoagulation which was discussed last admission and started on Eliquis Suspected cervical radiculopathy: Cervical CT from December 2024 showed chronic compression fracture of C4 and C5 along with multilevel facet joint disease and uncovertebral joint osteoarthritic changes. Could not get MRI due to pacemaker device. CT cervical spine repeat on February 2025 showed moderate neuroforaminal narrowing on left at C2 4-5 and on the right at C2-3. Erosive changes at C3-C4 and C4-C5 disc stasis these appear chronic. Bilateral shoulder x-ray October 2024 were unremarkable. Neurosurgery was consulted last admission plan for cervical MRI as an outpatient basis at MRI compatible facility. Orthopedic evaluated the patient fall. Chronic CHF diastolic. End-stage renal disease on hemodialysis nephrology consulted Chronic respiratory failure on oxygen at home Chronic anemia with no signs of bleeding Type 2 diabetes on insulin Atrial fibrillation anticoagulation intermittent neurological symptoms be related to this. His chads Vasc score is at least 5. Started on Eliquis. He likely had been off anticoagulation due to anemia requiring blood transfusion in 2023 CARITO on CPAP however noncompliant, switched to bipap at night per hypercapnic resp failure. tolerated bipap. Will continue BiPAP at night Coronary artery disease status post CABG in 2013 Cardiac pacemaker her due to sinus pauses October 2024 Peripheral artery disease status post angioplasty and endarterectomy bilateral lower extremities Disposition: PT OT to see DVT prophylaxis started on Eliquis Code status full code Subjective Date/time seen: 03/24/25 15:18 Interval history: Patient more alert. Denies any new complaints. Underwent dialysis this afternoon. Review of Systems Review of Systems: All systems reviewed & are unremarkable except as noted in HPI and below Exam Narrative: General: Chronically ill-appearing male in the semi-Marcum position in bed. More alert and attentive today HEENT: Normocephalic, atraumatic. PERRL, EOMI. Sclera anicteric. Conjunctiva mildly injected. Tacky mucous membranes. Neck: Supple. No obvious bruits or thyromegaly. Respiratory: Respirations are nonlabored. Lung sounds are a bit diminished due to poor effort. Cardiovascular: Regular rate and rhythm with S1-S2. Soft murmur at the apex and left lower sternal border. Gastrointestinal: Abdomen is soft, nontender, and nondistended with positive bowel sounds. Skin: Warm and dry. Scattered bruises. Extremities: No cyanosis, clubbing, or significant edema. Left upper extremity fistula with palpable thrill and bruit. Neurological: Alert and oriented to name, age, date of , and place. Cranial nerves 2-12 are grossly intact. Speech is clear. No facial asymmetry. 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 No gross focal deficits. Psychiatric: Calm, cooperative Objective Data Vital Signs Vital Signs: Vital Signs - 24 hr 03/23/25 20:00 03/23/25 21:40 03/23/25 21:40 Temperature Pulse Rate 64 Respiratory Rate 19 Blood Pressure Pulse Oximetry 100 99 99 Oxygen Delivery Nasal Cannula Nasal Cannula BiPAP Oxygen Flow Rate 1 1 03/23/25 22:00 03/24/25 06:00 03/24/25 08:16 Temperature 98.2 F 98.4 F Pulse Rate 64 69 67 Respiratory Rate 16 20 Blood Pressure 141/66 H 152/66 H Pulse Oximetry 100 93 Oxygen Delivery Oxygen Flow Rate 03/24/25 08:32 03/24/25 08:45 03/24/25 08:45 Temperature 98.2 F Pulse Rate 68 69 Respiratory Rate 16 Blood Pressure 140/68 146/40 H Pulse Oximetry 98 Oxygen Delivery Oxygen Flow Rate 2 03/24/25 09:00 03/24/25 09:15 03/24/25 09:30 Temperature Pulse Rate 73 63 59 L Respiratory Rate Blood Pressure 128/66 124/67 133/64 Pulse Oximetry Oxygen Delivery Oxygen Flow Rate 03/24/25 09:45 03/24/25 10:00 03/24/25 10:15 Temperature Pulse Rate 61 60 64 Respiratory Rate Blood Pressure 129/56 L 126/58 L 137/54 L Pulse Oximetry Oxygen Delivery Oxygen Flow Rate 03/24/25 10:30 03/24/25 10:45 03/24/25 11:00 Temperature Pulse Rate 60 67 72 Respiratory Rate Blood Pressure 120/62 142/64 H 133/51 L Pulse Oximetry Oxygen Delivery Oxygen Flow Rate 03/24/25 11:15 03/24/25 11:30 03/24/25 11:45 Temperature Pulse Rate 68 65 66 Respiratory Rate Blood Pressure 144/67 H 143/66 H 140/68 Pulse Oximetry Oxygen Delivery Oxygen Flow Rate 03/24/25 12:00 03/24/25 12:18 03/24/25 12:30 Temperature 97.7 F Pulse Rate 71 68 62 Respiratory Rate 20 Blood Pressure 146/70 H 156/74 H 142/56 H Pulse Oximetry 100 Oxygen Delivery Oxygen Flow Rate 03/24/25 14:34 Temperature 97.9 F Pulse Rate 68 Respiratory Rate 17 Blood Pressure 144/58 H Pulse Oximetry 96 Oxygen Delivery Oxygen Flow Rate Intake/Output Intake/Output: Intake & Output 03/21/25 03/22/25 03/23/25 03/24/25 23:59 23:59 23:59 23:59 Intake Total 650 580 Output Total 900 0 3000 Balance -900 650 -2420 Meds/Results Medications: Active Medications Generic Name Dose Route Start Last Admin Trade Name Freq PRN Reason Stop Dose Admin Acetaminophen 650 mg 03/23/25 01:37 03/24/25 11:31 Acetaminophen 325 Mg Tablet PO 650 mg Q4H PRN Administration Mild Pain (1-3) or Fever Amlodipine Besylate 10 mg 03/23/25 09:00 03/24/25 14:05 Amlodipine Besylate 10 Mg Tablet PO 10 mg DAILY DAVID Administration Apixaban 2.5 mg 03/23/25 21:00 03/24/25 08:17 Apixaban 2.5 Mg Tablet PO 2.5 mg Q12HR DAVID Administration Aspirin 81 mg 03/23/25 09:00 03/24/25 08:16 Aspirin 81 Mg Enteric Tablet PO 81 mg DAILY DAVID Administration Atorvastatin Calcium 20 mg 03/23/25 21:00 03/23/25 21:20 Atorvastatin 20 Mg Tablet PO 20 mg HS DAVID Administration Bisacodyl 10 mg 03/23/25 06:46 Bisacodyl 10 Mg Suppository RECTAL DAILY PRN constipation Carvedilol 25 mg 03/23/25 09:00 03/24/25 08:16 Carvedilol 25 Mg Tablet PO 25 mg Q12HR DAVID Administration Cinacalcet 90 mg 03/23/25 09:00 03/24/25 08:11 Cinacalcet 30 Mg Tablet PO 90 mg DAILY DAVID Administration Dextrose 12.5 gm 03/23/25 06:39 Dextrose 50% 25 Gm/50 Ml Syringe IV PUSH PRN PRN Hypoglycemia Protocol Epoetin David-epbx 10,000 units 03/24/25 09:00 03/24/25 10:46 Epoetin David-Epbx 10,000 Units/Ml Vial IV PUSH 10,000 units TUTHSA@09 DAVID Administration Finasteride 5 mg 03/23/25 09:00 03/24/25 08:16 Finasteride 5 Mg Tablet PO 5 mg QAM DAVID Administration Furosemide 80 mg 03/23/25 09:00 03/24/25 08:16 Furosemide 80 Mg Tablet PO 80 mg BID DAVID Administration Gabapentin 100 mg 03/23/25 09:00 03/24/25 14:06 Gabapentin 100 Mg Capsule PO 100 mg TID DAVID Administration Glucagon 1 mg 03/23/25 06:39 Glucagon For Inj 1 Mg Vial IM PRN PRN Hypoglycemia Protocol Glucose 15 gm 03/23/25 06:39 Glucose Oral Gel 15 Gm Of Glucse In 37.5 Gm Tube PO PRN PRN Hypoglycemia Protocol Ceftriaxone Sodium 1 gm in 50 mls @ 100 mls/hr 03/23/25 23:00 03/23/25 22:06 Rocephin 1 Gm/Ns 50 Ml IVPB 100 mls/hr Q24H DAVID Administration Dextrose 1,000 mls @ 100 mls/hr 03/23/25 06:39 Dextrose 5% 1,000 Ml IVPB PRN PRN Hypoglycemia Protocol Albumin Human 50 mls @ 999 mls/hr 03/24/25 08:11 Albutein IVPB 03/25/25 08:10 Q10M PRN HYPOTENSION Insulin Aspart 3 - 6 units 03/23/25 08:00 03/24/25 12:29 Insulin Aspart (*Bkc) 100 Units/Ml SUB-Q Not Given TIDWM DAVID Protocol Insulin Aspart 1 - 3 units 03/23/25 21:00 03/23/25 21:22 Insulin Aspart (*Bkc) 100 Units/Ml SUB-Q Not Given HS DAVID Protocol Insulin Aspart 4 units 03/23/25 08:00 03/24/25 12:43 Insulin Aspart (*Bkc) 100 Units/Ml SUB-Q Not Given TIDWM DAVID Insulin Glargine 6 units 03/23/25 21:00 03/23/25 21:22 Insulin Glargine (*Bkc) 100 Units/Ml SUB-Q 6 units HS DAVID Administration Levalbuterol HCl 0.63 mg 03/23/25 08:00 Levalbuterol Neb 1.25 Mg/3 Ml INHALATION Q6HRT PRN Shortness Of Breath Or Wheezing Loratadine 10 mg 03/23/25 09:00 03/24/25 08:16 Loratadine 10 Mg Tablet PO 10 mg DAILY DAVID Administration Melatonin 3 mg 03/23/25 21:00 03/23/25 21:23 Melatonin 3 Mg Tablet PO Not Given HS DAVID Pentoxifylline 400 mg 03/23/25 18:00 03/23/25 17:05 Pentoxifylline 400 Mg Tabcr PO 400 mg QPM DAVID Administration Sevelamer Carbonate 0.8 gm 03/23/25 08:00 03/24/25 14:06 Sevelamer Carbonate 0.8 Gm Oral Powder Packet PO 0.8 gm TIDWM DAVID Administration Tamsulosin HCl 0.4 mg 03/23/25 21:00 03/23/25 21:20 Tamsulosin Hcl 0.4 Mg Capsule PO 0.4 mg QHS DAVID Administration Umeclidinium [place] 1 puff 03/23/25 08:00 03/24/25 09:06 Umeclidinium [place] 62.5 Mcg Ellipta INHALATION Not Given DAILYRT DAVID Vitamin B Complex 1 cap 03/23/25 09:00 03/24/25 14:06 Vitamin B Complex Capsule PO 1 cap DAILY DAVID Administration Radiology Results: ITS Impressions Chest X-Ray 03/23/25 05:29 Impression: Possible left lower lobe pneumonia. Loop recorder. Head CT 03/23/25 05:30 Impression: No intracranial hemorrhage, mass, or acute infarct. Atrophy and chronic white matter changes, as above. Right maxillary sinus disease. Cervical Spine CT 03/23/25 05:39 Impression: No acute fracture or subluxation of the cervical spine. Stable extensive erosive/destructive changes of the C4and C5 vertebral bodies in particular, with additional erosive change at the inferior aspect of C3 vertebral body, most likely related to severe chronic degenerative spondyloarthropathy versus possibly other inflammatory/erosive arthropathy. Stable advanced degenerative spondylitic changes in the cervical spine otherwise, as above. Labs Labs: Laboratory Results - last 24 hr 03/23/25 03/23/25 03/24/25 17:07 20:39 06:22 WBC 5.6 RBC 3.99 L Hgb 10.4 L Hct 35.6 L MCV 89.2 MCH 26.1 MCHC 29.2 L RDW 18.0 H Plt Count 197 MPV 11.0 H Immature Gran % (Auto) 0.5 Neut % (Auto) 71.9 Lymph % (Auto) 12.0 L [place] % (Auto) 12.9 H Eos % (Auto) 2.0 Baso % (Auto) 0.7 Lymph # (Auto) 0.67 L [place] # (Auto) 0.7 H Eos # (Auto) 0.1 Baso # (Auto) 0.0 Abs Immat Gran (auto) 0.03 Absolute Neuts (auto) 4.0 Absolute Nucleated RBC 0.000 Band Neutrophils % Not Reportable Nucleated RBC % 0.0 Platelet Estimate Adequate Hypochromasia 1+ Anisocytosis 1+ Target Cells 1+ Schistocytes None seen Sodium 130 L Potassium 4.6 Chloride 90 L Carbon Dioxide 29 Anion Gap 11 BUN 42 H D Creatinine 5.77 H Estim Creat Clear Calc 11 Estimated GFR 10 L Glucose 110 POC Capillary Glucose 107 H 160 H Calcium 9.5 Magnesium 2.3 Total Bilirubin 0.3 AST 15 L ALT 9 Alkaline Phosphatase 57 Total Protein 6.0 L Albumin 3.7 03/24/25 03/24/25 07:40 12:27 WBC RBC Hgb Hct MCV MCH MCHC RDW Plt Count MPV Immature Gran % (Auto) Neut % (Auto) Lymph % (Auto) [place] % (Auto) Eos % (Auto) Baso % (Auto) Lymph # (Auto) [place] # (Auto) Eos # (Auto) Baso # (Auto) Abs Immat Gran (auto) Absolute Neuts (auto) Absolute Nucleated RBC Band Neutrophils % Nucleated RBC % Platelet Estimate Hypochromasia Anisocytosis Target Cells Schistocytes Sodium Potassium Chloride Carbon Dioxide Anion Gap BUN Creatinine Estim Creat Clear Calc Estimated GFR Glucose POC Capillary Glucose 108 H 79 Calcium Magnesium Total Bilirubin AST ALT Alkaline Phosphatase Total Protein Albumin
--- NOTE | 2025-03-24 15:30 | P.PNNP_ITS ---
Progress Note: A&P Assessment and Plan (1) End stage renal disease: Code(s): N18.6 - End stage renal disease Status: Chronic Assessment and Plan: * The patient has end-stage renal disease. * This is most likely related to his diabetes hypertension and vascular disease. * He dialyzes 3 times a week at [facility]. He usually shows up for his treatment when not in the hospital. * HD was done earlier today. * continue T/T/S outpatient dialysis schedule * 3L was removed and he tolerated it well * electrolytes look okay (2) Altered mental status: Code(s): R41.82 - Altered mental status, unspecified Status: Acute Assessment and Plan: * The patient has change in mental status. * He had imaging of his brain which was okay. * mental status is better today. * He is getting antibiotics for his UTI (3) Volume overload: Code(s): E87.70 - Fluid overload, unspecified Status: Acute Assessment and Plan: * He has chronic volume overload because he drinks a lot of fluid in the half-way. * continue to attempt fluid removal on dialysis. * Continue to encourage patient to drink less fluid and avoid salty food (4) Atrial fibrillation: Code(s): I48.91 - Unspecified atrial fibrillation Status: Chronic Assessment and Plan: * rate control strategy * restarted anticoagulation (Eliquis) last hospitalization * apparently previously held due to issues with GI bleeding (5) Hypercalcemia: Code(s): E83.52 - Hypercalcemia Status: Chronic Assessment and Plan: * This is good this time around. (6) Anemia: Code(s): D64.9 - Anemia, unspecified Status: Chronic Assessment and Plan: * due to ESRD * Epogen with HD * Hemoglobin 10 today. (7) Essential (primary) hypertension: Code(s): I10 - Essential (primary) hypertension Status: Chronic Assessment and Plan: * Systolic 140s to 170s. Will remove fluid tomorrow and see how it looks (8) IDDM (insulin dependent diabetes mellitus): Status: Chronic Assessment and Plan: * follow accu-cheks * glycemic control per hospitalist Subjective Date/time seen: 03/24/25 15:30 Interval history: Sam is feeling better today. He is more animated and conversive today. Nursing says that if he is on [id number] of oxygen he falls asleep but if he is on more than 2L then he gets fidgety. Review of Systems Cardiovascular: Cardiovascular: Reports no additional cardiovascular complaints Respiratory: Respiratory: Reports no additional respiratory complaints Gastrointestinal: Gastrointestinal: Reports no additional gastrointestinal complaints Genitourinary: Genitourinary: Reports no additional male genitourinary complaints Exam Narrative: WDWN in NAD skin no rash head ncat lungs clear cor reg no rub abd BS+ nontender and soft ext no edema. Objective Data Vital Signs Vital Signs: Vital Signs - 24 hr 03/23/25 20:00 03/23/25 21:40 03/23/25 21:40 Temperature Pulse Rate 64 Respiratory Rate 19 Blood Pressure Pulse Oximetry 100 99 99 Oxygen Delivery Nasal Cannula Nasal Cannula BiPAP Oxygen Flow Rate 1 1 03/23/25 22:00 03/24/25 06:00 03/24/25 08:16 Temperature 98.2 F 98.4 F Pulse Rate 64 69 67 Respiratory Rate 16 20 Blood Pressure 141/66 H 152/66 H Pulse Oximetry 100 93 Oxygen Delivery Oxygen Flow Rate 03/24/25 08:32 03/24/25 08:45 03/24/25 08:45 Temperature 98.2 F Pulse Rate 68 69 Respiratory Rate 16 Blood Pressure 140/68 146/40 H Pulse Oximetry 98 Oxygen Delivery Oxygen Flow Rate 2 03/24/25 09:00 03/24/25 09:15 03/24/25 09:30 Temperature Pulse Rate 73 63 59 L Respiratory Rate Blood Pressure 128/66 124/67 133/64 Pulse Oximetry Oxygen Delivery Oxygen Flow Rate 03/24/25 09:45 03/24/25 10:00 03/24/25 10:15 Temperature Pulse Rate 61 60 64 Respiratory Rate Blood Pressure 129/56 L 126/58 L 137/54 L Pulse Oximetry Oxygen Delivery Oxygen Flow Rate 03/24/25 10:30 03/24/25 10:45 03/24/25 11:00 Temperature Pulse Rate 60 67 72 Respiratory Rate Blood Pressure 120/62 142/64 H 133/51 L Pulse Oximetry Oxygen Delivery Oxygen Flow Rate 03/24/25 11:15 03/24/25 11:30 03/24/25 11:45 Temperature Pulse Rate 68 65 66 Respiratory Rate Blood Pressure 144/67 H 143/66 H 140/68 Pulse Oximetry Oxygen Delivery Oxygen Flow Rate 03/24/25 12:00 03/24/25 12:18 03/24/25 12:30 Temperature 97.7 F Pulse Rate 71 68 62 Respiratory Rate 20 Blood Pressure 146/70 H 156/74 H 142/56 H Pulse Oximetry 100 Oxygen Delivery Oxygen Flow Rate 03/24/25 14:34 Temperature 97.9 F Pulse Rate 68 Respiratory Rate 17 Blood Pressure 144/58 H Pulse Oximetry 96 Oxygen Delivery Oxygen Flow Rate Intake/Output Intake/Output: Intake & Output 03/21/25 03/22/25 03/23/25 03/24/25 23:59 23:59 23:59 23:59 Intake Total 650 580 Output Total 900 0 3000 Balance -900 650 -2420 Meds/Results Medications: Active Medications Generic Name Dose Route Start Last Admin Trade Name Freq PRN Reason Stop Dose Admin Acetaminophen 650 mg 03/23/25 01:37 03/24/25 11:31 Acetaminophen 325 Mg Tablet PO 650 mg Q4H PRN Administration Mild Pain (1-3) or Fever Amlodipine Besylate 10 mg 03/23/25 09:00 03/24/25 14:05 Amlodipine Besylate 10 Mg Tablet PO 10 mg DAILY DAVID Administration Apixaban 2.5 mg 03/23/25 21:00 03/24/25 08:17 Apixaban 2.5 Mg Tablet PO 2.5 mg Q12HR DAVID Administration Aspirin 81 mg 03/23/25 09:00 03/24/25 08:16 Aspirin 81 Mg Enteric Tablet PO 81 mg DAILY DAVID Administration Atorvastatin Calcium 20 mg 03/23/25 21:00 03/23/25 21:20 Atorvastatin 20 Mg Tablet PO 20 mg HS DAVID Administration Bisacodyl 10 mg 03/23/25 06:46 Bisacodyl 10 Mg Suppository RECTAL DAILY PRN constipation Carvedilol 25 mg 03/23/25 09:00 03/24/25 08:16 Carvedilol 25 Mg Tablet PO 25 mg Q12HR DAVID Administration Cinacalcet 90 mg 03/23/25 09:00 03/24/25 08:11 Cinacalcet 30 Mg Tablet PO 90 mg DAILY DAVID Administration Dextrose 12.5 gm 03/23/25 06:39 Dextrose 50% 25 Gm/50 Ml Syringe IV PUSH PRN PRN Hypoglycemia Protocol Epoetin David-epbx 10,000 units 03/24/25 09:00 03/24/25 10:46 Epoetin David-Epbx 10,000 Units/Ml Vial IV PUSH 10,000 units TUTHSA@09 DAVID Administration Finasteride 5 mg 03/23/25 09:00 03/24/25 08:16 Finasteride 5 Mg Tablet PO 5 mg QAM DAVID Administration Furosemide 80 mg 03/23/25 09:00 03/24/25 08:16 Furosemide 80 Mg Tablet PO 80 mg BID DAVID Administration Gabapentin 100 mg 03/23/25 09:00 03/24/25 14:06 Gabapentin 100 Mg Capsule PO 100 mg TID DAVID Administration Glucagon 1 mg 03/23/25 06:39 Glucagon For Inj 1 Mg Vial IM PRN PRN Hypoglycemia Protocol Glucose 15 gm 03/23/25 06:39 Glucose Oral Gel 15 Gm Of Glucse In 37.5 Gm Tube PO PRN PRN Hypoglycemia Protocol Ceftriaxone Sodium 1 gm in 50 mls @ 100 mls/hr 03/23/25 23:00 03/23/25 22:06 Rocephin 1 Gm/Ns 50 Ml IVPB 100 mls/hr Q24H DAVID Administration Dextrose 1,000 mls @ 100 mls/hr 03/23/25 06:39 Dextrose 5% 1,000 Ml IVPB PRN PRN Hypoglycemia Protocol Albumin Human 50 mls @ 999 mls/hr 03/24/25 08:11 Albutein IVPB 03/25/25 08:10 Q10M PRN HYPOTENSION Insulin Aspart 3 - 6 units 03/23/25 08:00 03/24/25 12:29 Insulin Aspart (*Bkc) 100 Units/Ml SUB-Q Not Given TIDWM DAVID Protocol Insulin Aspart 1 - 3 units 03/23/25 21:00 03/23/25 21:22 Insulin Aspart (*Bkc) 100 Units/Ml SUB-Q Not Given HS DAVID Protocol Insulin Aspart 4 units 03/23/25 08:00 03/24/25 12:43 Insulin Aspart (*Bkc) 100 Units/Ml SUB-Q Not Given TIDWM DAVID Insulin Glargine 6 units 03/23/25 21:00 03/23/25 21:22 Insulin Glargine (*Bkc) 100 Units/Ml SUB-Q 6 units HS DAVID Administration Levalbuterol HCl 0.63 mg 03/23/25 08:00 Levalbuterol Neb 1.25 Mg/3 Ml INHALATION Q6HRT PRN Shortness Of Breath Or Wheezing Loratadine 10 mg 03/23/25 09:00 03/24/25 08:16 Loratadine 10 Mg Tablet PO 10 mg DAILY DAVID Administration Melatonin 3 mg 03/23/25 21:00 03/23/25 21:23 Melatonin 3 Mg Tablet PO Not Given HS DAVID Pentoxifylline 400 mg 03/23/25 18:00 03/23/25 17:05 Pentoxifylline 400 Mg Tabcr PO 400 mg QPM DAVID Administration Sevelamer Carbonate 0.8 gm 03/23/25 08:00 03/24/25 14:06 Sevelamer Carbonate 0.8 Gm Oral Powder Packet PO 0.8 gm TIDWM DAVID Administration Tamsulosin HCl 0.4 mg 03/23/25 21:00 03/23/25 21:20 Tamsulosin Hcl 0.4 Mg Capsule PO 0.4 mg QHS DAVID Administration Umeclidinium [place] 1 puff 03/23/25 08:00 03/24/25 09:06 Umeclidinium [place] 62.5 Mcg Ellipta INHALATION Not Given DAILYRT DAVID Vitamin B Complex 1 cap 03/23/25 09:00 03/24/25 14:06 Vitamin B Complex Capsule PO 1 cap DAILY DAVID Administration Radiology Results: ITS Impressions Chest X-Ray 03/23/25 05:29 Impression: Possible left lower lobe pneumonia. Loop recorder. Head CT 03/23/25 05:30 Impression: No intracranial hemorrhage, mass, or acute infarct. Atrophy and chronic white matter changes, as above. Right maxillary sinus disease. Cervical Spine CT 03/23/25 05:39 Impression: No acute fracture or subluxation of the cervical spine. Stable extensive erosive/destructive changes of the C4and C5 vertebral bodies in particular, with additional erosive change at the inferior aspect of C3 vertebral body, most likely related to severe chronic degenerative spondyloarthropathy versus possibly other inflammatory/erosive arthropathy. Stable advanced degenerative spondylitic changes in the cervical spine otherwise, as above. Labs Labs: Laboratory Results - last 24 hr 03/23/25 03/23/25 03/24/25 17:07 20:39 06:22 WBC 5.6 RBC 3.99 L Hgb 10.4 L Hct 35.6 L MCV 89.2 MCH 26.1 MCHC 29.2 L RDW 18.0 H Plt Count 197 MPV 11.0 H Immature Gran % (Auto) 0.5 Neut % (Auto) 71.9 Lymph % (Auto) 12.0 L [place] % (Auto) 12.9 H Eos % (Auto) 2.0 Baso % (Auto) 0.7 Lymph # (Auto) 0.67 L [place] # (Auto) 0.7 H Eos # (Auto) 0.1 Baso # (Auto) 0.0 Abs Immat Gran (auto) 0.03 Absolute Neuts (auto) 4.0 Absolute Nucleated RBC 0.000 Band Neutrophils % Not Reportable Nucleated RBC % 0.0 Platelet Estimate Adequate Hypochromasia 1+ Anisocytosis 1+ Target Cells 1+ Schistocytes None seen Sodium 130 L Potassium 4.6 Chloride 90 L Carbon Dioxide 29 Anion Gap 11 BUN 42 H D Creatinine 5.77 H Estim Creat Clear Calc 11 Estimated GFR 10 L Glucose 110 POC Capillary Glucose 107 H 160 H Calcium 9.5 Magnesium 2.3 Total Bilirubin 0.3 AST 15 L ALT 9 Alkaline Phosphatase 57 Total Protein 6.0 L Albumin 3.7 03/24/25 03/24/25 07:40 12:27 WBC RBC Hgb Hct MCV MCH MCHC RDW Plt Count MPV Immature Gran % (Auto) Neut % (Auto) Lymph % (Auto) [place] % (Auto) Eos % (Auto) Baso % (Auto) Lymph # (Auto) [place] # (Auto) Eos # (Auto) Baso # (Auto) Abs Immat Gran (auto) Absolute Neuts (auto) Absolute Nucleated RBC Band Neutrophils % Nucleated RBC % Platelet Estimate Hypochromasia Anisocytosis Target Cells Schistocytes Sodium Potassium Chloride Carbon Dioxide Anion Gap BUN Creatinine Estim Creat Clear Calc Estimated GFR Glucose POC Capillary Glucose 108 H 79 Calcium Magnesium Total Bilirubin AST ALT Alkaline Phosphatase Total Protein Albumin
[2025-03-24 16:49] LABS: Glucose Point of Care 221 mg/dl (65-105)
[2025-03-24] MEDS: INSULIN ASPART (*BKC) 100 UNITS/ML SUB-Q ×2 (17:07→17:08)
[2025-03-24] MEDS: PENTOXIFYLLINE 400 MG TABCR PO (17:08)
[2025-03-24] MEDS: MELATONIN 3 MG TABLET PO (20:44)
[2025-03-24] MEDS: TAMSULOSIN HCL 0.4 MG CAPSULE PO (20:44)
[2025-03-24] MEDS: ATORVASTATIN 20 MG TABLET PO (20:44)
[2025-03-24 21:26] LABS: Glucose Point of Care 130 mg/dl (65-105)
[2025-03-24] MEDS: INSULIN GLARGINE (*BKC) 100 UNITS/ML 6 UNITS SUB-Q (21:54)
[2025-03-25] VITALS (9 sets, daily range): BP systolic 115–162; BP diastolic 61–74; PULSE 58–72; RESP 14–20; TEMP 36.2–36.7; O2SAT 98–100
[2025-03-25] MEDS: ACETAMINOPHEN 325 MG TABLET 650 MG PO ×2 (05:46→20:49)
[2025-03-25 06:35] LABS: Basophils Absolute Auto 0.1 K/mm3 (0.0-0.1); Basophils Percent Auto 1.1 % (0.2-1.2); Eosinophils Absolute Auto 0.1 K/mm3 (0-0.3); Eosinophils Percent Auto 2.5 % (0-4.4); Hematocrit 35.4 % (42.0-52.0); Hemoglobin 10.3 g/dL (14.0-18.0); Immature Granulocyte Absolute 0.05 K/mm3 (0.00-0.031); Immature Granulocyte Percent A 0.9 % (0-0.5); Lymphocytes Absolute Auto 0.84 K/mm3 (0.9-3.2); Lymphocytes Percent Auto 14.8 % (18.3-44.2); Mean Corpuscular HGB Conc 29.1 g/dl (32-36); Mean Corpuscular Hemoglobin 26.5 pg (26-34); Mean Corpuscular Volume 91.2 fl (80-100); Mean Platelet Volume 11.1 fl (7.4-10.4); Monocytes Absolute Auto 0.8 K/mm3 (0.1-0.6); Monocytes Percent Auto 14.3 % (2.6-8.5); Neutrophils Absolute Auto 3.8 K/mm3 (1.3-6.7); Neutrophils Percent Auto 66.4 % (45.5-73.1); Platelet Count Result 220 k/mm3 (150-375); Red Blood Count 3.88 M/mm3 (4.6-6.20); Red Cell Distribution Width 18.7 % (11.5-14.5); White Blood Count 5.7 K/mm3 (4.5-10.0)
[2025-03-25 06:47] LABS: Alanine Aminotransferase 8 U/L (6-50); Albumin Level 3.5 g/dL (3.5-5.1); Alkaline Phosphatase 54 U/L (38-126); Anion Gap 7 mmol/L (4-12); Aspartate Amino Transferase 13 U/L (17-59); Bilirubin,Total 0.3 mg/dL (0.2-1.3); Blood Urea Nitrogen 31 mg/dL (9-20); Calcium 9.2 mg/dL (8.4-10.2); Carbon Dioxide 32 mmol/L (22-30); Chloride 93 mmol/L (98-107); Estimated CRCL calculation 15 ml/min; Estimated Glomerular Filt Rate 14; Glucose 85 mg/dL (65-110); Magnesium 2.2 mg/dL (1.6-2.3); Phosphorus 3.4 mg/dL (2.5-4.5); Potassium 4.2 mmol/L (3.4-5.0); Sodium 132 mmol/L (137-145); Total Protein 6.1 g/dL (6.3-8.2)
[2025-03-25 07:13] LABS: Anisocytosis 1+; Hypochromasia 1+; Platelet Estimate Adequate (Adequate); Schistocytes None Seen; Target Cells 1+
[2025-03-25 07:49] LABS: Glucose Point of Care 88 mg/dl (65-105)
[2025-03-25] MEDS: UMECLIDINIUM BROMIDE 62.5 MCG ELLIPTA 1 PUFF INHALATION (08:30)
[2025-03-25] MEDS: SEVELAMER CARBONATE 0.8 GM ORAL POWDER PACKET PO ×3 (09:43→17:23)
[2025-03-25] MEDS: LORATADINE 10 MG TABLET PO (09:54)
[2025-03-25] MEDS: ASPIRIN 81 MG ENTERIC TABLET PO (09:54)
[2025-03-25] MEDS: CINACALCET 30 MG TABLET 90 MG PO (09:54)
[2025-03-25] MEDS: FINASTERIDE 5 MG TABLET PO (09:55)
[2025-03-25] MEDS: carvediloL 25 MG TABLET PO ×2 (09:55→20:50)
[2025-03-25] MEDS: VITAMIN B COMPLEX CAPSULE 1 CAP PO (09:55)
[2025-03-25] MEDS: amLODIPine BESYLATE 10 MG TABLET PO (09:55)
[2025-03-25] MEDS: GABAPENTIN 100 MG CAPSULE PO ×3 (09:55→17:23)
[2025-03-25] MEDS: APIXABAN 2.5 MG TABLET PO ×2 (09:55→20:51)
[2025-03-25] MEDS: FUROSEMIDE 80 MG TABLET PO ×2 (09:55→17:23)
--- NOTE | 2025-03-25 11:06 | P.PNIM_ITS ---
Progress Note: A&P Assessment and Plan (1) Chronic obstructive pulmonary disease: Code(s): J44.9 - Chronic obstructive pulmonary disease, unspecified Status: Acute Assessment and Plan: * Levalbuterol 0.63 mg q 6 PRN. * Umeclidinium 1 puff daily. (2) Pneumonia: Qualifiers: Laterality: unspecified laterality Lung location: unspecified part of lung Pneumonia type: due to unspecified organism Qualified Code(s): J18.9 - Pneumonia, unspecified organism Code(s): J18.9 - Pneumonia, unspecified organism Status: Acute Assessment and Plan: * Chest x-ray possible left lower lobe pneumonia. * Doxycycline 100 mg PO q 12 and Ceftriaxone 1 gram IVPB daily. * Blood cultures no growth. * Incentive spirometer. * PT/OT (3) Insulin dependent type 2 diabetes mellitus: Onset Date: ~2009 Code(s): E11.9 - Type 2 diabetes mellitus without complications; Z79.4 - retirement (current) use of insulin Status: Acute Assessment and Plan: * SSI, Hypoglycemic protocol, and accu checks. * Lantus 6 units subq qhs. * Aspart 4 units subq with meals. * HgbA1C 6.2% on 12/22/24. (4) Atrial fibrillation: Code(s): I48.91 - Unspecified atrial fibrillation Status: Chronic Assessment and Plan: * Atrial fibrillation anticoagulation intermittent neurological symptoms be related to this. His chads Vasc score is at least 5. Started on Eliquis. He likely had been off anticoagulation due to anemia requiring blood transfusion in 2023. * Eliquis 2.5 mg PO q 12. (5) End-stage renal disease on hemodialysis: Code(s): N18.6 - End stage renal disease; Z99.2 - Dependence on renal dialysis Status: Acute Assessment and Plan: * HD T-TH-Sat. * Nephrology consulted. * Fluid restriction 1500 ml day. (6) Elevated troponin: Code(s): R79.89 - Other specified abnormal findings of blood chemistry Status: Acute Assessment and Plan: * mildly elevated. (7) Obstructive sleep apnea: Code(s): G47.33 - Obstructive sleep apnea (adult) (pediatric) Status: Acute Assessment and Plan: * CARITO on CPAP however noncompliant, switched to bipap at night per hypercapnic resp failure. tolerated bipap. Will continue BiPAP at night. (8) Hypertension: Code(s): I10 - Essential (primary) hypertension Status: Acute Assessment and Plan: * Blood pressure 162/74. * Amlodipine 10 mg PO daily and Carvedilol 25 mg PO q 12. * Furosemide 80 mg PO BID. (9) Anemia: Code(s): D64.9 - Anemia, unspecified Status: Acute Assessment and Plan: * H&H 10.3/35.4. * monitor. (10) Somnolence: Code(s): R40.0 - Somnolence Status: Acute Assessment and Plan: * Polypharmacy stopped his baclofen, cyclobenzaprine. (11) Benign prostatic hyperplasia: Qualifiers: Lower urinary tract symptom detail: unspecified Code(s): N40.0 - Benign prostatic hyperplasia without lower urinary tract symptoms Status: Acute Assessment and Plan: * Tamsulosin 0.4 mg PO qhs. Subjective Date/time seen: 03/25/25 11:06 Interval history: Patient sitting up in chair. Patient reports pain in right foot that is a 5, constant, and aching. Patient denies chest pain, palpitations, headache, dizziness, nausea, or vomiting. Patient reports that when he came in he had brown sputum but now it has changed to milky. Review of Systems Review of Systems: All systems reviewed & are unremarkable except as noted in HPI and below Exam Const: General: no acute distress and uncomfortable Resp: Effort & Inspection: normal respiratory effort Auscultation: diminished lung sounds Cardio: Rate: regular rate Rhythm: regular rhythm GI: GI Palp: Yes Soft to palpation Auscultation: normal bowel sounds Skin: Other: Warm and dry. Scattered bruises. Neuro: Speech: normal speech Extrem: General: no pedal edema Psych: Mental Status: mental status grossly normal Affect: normal affect Objective Data Vital Signs Vital Signs: Vital Signs - 24 hr 03/24/25 11:15 03/24/25 11:30 03/24/25 11:45 Temperature Pulse Rate 68 65 66 Respiratory Rate Blood Pressure 144/67 H 143/66 H 140/68 Pulse Oximetry Oxygen Delivery Oxygen Flow Rate 03/24/25 12:00 03/24/25 12:18 03/24/25 12:30 Temperature 97.7 F Pulse Rate 71 68 62 Respiratory Rate 20 Blood Pressure 146/70 H 156/74 H 142/56 H Pulse Oximetry 100 Oxygen Delivery Oxygen Flow Rate 03/24/25 14:34 03/24/25 20:00 03/24/25 20:44 Temperature 97.9 F Pulse Rate 68 68 Respiratory Rate 17 Blood Pressure 144/58 H Pulse Oximetry 96 96 Oxygen Delivery Nasal Cannula Oxygen Flow Rate 2 03/24/25 21:15 03/24/25 22:53 03/24/25 22:53 Temperature 97.2 F L Pulse Rate 68 75 Respiratory Rate 20 15 Blood Pressure 154/76 H Pulse Oximetry 94 98 98 Oxygen Delivery BiPAP BiPAP Oxygen Flow Rate 2 03/25/25 03:35 03/25/25 04:45 03/25/25 08:30 Temperature 97.3 F L Pulse Rate 70 58 L Respiratory Rate 14 20 Blood Pressure 162/74 H Pulse Oximetry 98 100 100 Oxygen Delivery BiPAP Nasal Cannula Oxygen Flow Rate 2 03/25/25 09:55 03/25/25 10:08 Temperature Pulse Rate 67 Respiratory Rate Blood Pressure Pulse Oximetry Oxygen Delivery Nasal Cannula Oxygen Flow Rate 2 Intake/Output Intake/Output: Intake & Output 03/22/25 03/23/25 03/24/25 03/25/25 23:59 23:59 23:59 23:59 Intake Total 700 1230 580 Output Total 900 0 3000 Balance -900 700 -1770 580 Meds/Results Medications: Active Medications Generic Name Dose Route Start Last Admin Trade Name Freq PRN Reason Stop Dose Admin Acetaminophen 650 mg 03/23/25 01:37 03/25/25 05:46 Acetaminophen 325 Mg Tablet PO 650 mg Q4H PRN Administration Mild Pain (1-3) or Fever Amlodipine Besylate 10 mg 03/23/25 09:00 03/25/25 09:55 Amlodipine Besylate 10 Mg Tablet PO 10 mg DAILY DAVID Administration Apixaban 2.5 mg 03/23/25 21:00 03/25/25 09:55 Apixaban 2.5 Mg Tablet PO 2.5 mg Q12HR DAVID Administration Aspirin 81 mg 03/23/25 09:00 03/25/25 09:54 Aspirin 81 Mg Enteric Tablet PO 81 mg DAILY DAVID Administration Atorvastatin Calcium 20 mg 03/23/25 21:00 03/24/25 20:44 Atorvastatin 20 Mg Tablet PO 20 mg HS DAVID Administration Bisacodyl 10 mg 03/23/25 06:46 Bisacodyl 10 Mg Suppository RECTAL DAILY PRN constipation Carvedilol 25 mg 03/23/25 09:00 03/25/25 09:55 Carvedilol 25 Mg Tablet PO 25 mg Q12HR DAVID Administration Cinacalcet 90 mg 03/23/25 09:00 03/25/25 09:54 Cinacalcet 30 Mg Tablet PO 90 mg DAILY DAVID Administration Dextrose 12.5 gm 03/23/25 06:39 Dextrose 50% 25 Gm/50 Ml Syringe IV PUSH PRN PRN Hypoglycemia Protocol Epoetin David-epbx 10,000 units 03/24/25 09:00 03/24/25 10:46 Epoetin David-Epbx 10,000 Units/Ml Vial IV PUSH 10,000 units TUTHSA@09 DAVID Administration Finasteride 5 mg 03/23/25 09:00 03/25/25 09:55 Finasteride 5 Mg Tablet PO 5 mg QAM DAVID Administration Furosemide 80 mg 03/23/25 09:00 03/25/25 09:55 Furosemide 80 Mg Tablet PO 80 mg BID DAVID Administration Gabapentin 100 mg 03/23/25 09:00 03/25/25 09:55 Gabapentin 100 Mg Capsule PO 100 mg TID DAVID Administration Glucagon 1 mg 03/23/25 06:39 Glucagon For Inj 1 Mg Vial IM PRN PRN Hypoglycemia Protocol Glucose 15 gm 03/23/25 06:39 Glucose Oral Gel 15 Gm Of Glucse In 37.5 Gm Tube PO PRN PRN Hypoglycemia Protocol Ceftriaxone Sodium 1 gm in 50 mls @ 100 mls/hr 03/23/25 23:00 03/24/25 23:41 Rocephin 1 Gm/Ns 50 Ml IVPB Infused Q24H DAVID Infusion Dextrose 1,000 mls @ 100 mls/hr 03/23/25 06:39 Dextrose 5% 1,000 Ml IVPB PRN PRN Hypoglycemia Protocol Insulin Aspart 3 - 6 units 03/23/25 08:00 03/25/25 09:43 Insulin Aspart (*Bkc) 100 Units/Ml SUB-Q Not Given TIDWM [facility] Protocol Insulin Aspart 1 - 3 units 03/23/25 21:00 03/24/25 21:54 Insulin Aspart (*Bkc) 100 Units/Ml SUB-Q Not Given HS DAVID Protocol Insulin Aspart 4 units 03/23/25 08:00 03/25/25 09:43 Insulin Aspart (*Bkc) 100 Units/Ml SUB-Q Not Given TIDWM DAVID Insulin Glargine 6 units 03/23/25 21:00 03/24/25 21:54 Insulin Glargine (*Bkc) 100 Units/Ml SUB-Q 6 units HS DAVID Administration Levalbuterol HCl 0.63 mg 03/23/25 08:00 Levalbuterol Neb 1.25 Mg/3 Ml INHALATION Q6HRT PRN Shortness Of Breath Or Wheezing Loratadine 10 mg 03/23/25 09:00 03/25/25 09:54 Loratadine 10 Mg Tablet PO 10 mg DAILY DAVID Administration Melatonin 3 mg 03/23/25 21:00 03/24/25 20:44 Melatonin 3 Mg Tablet PO 3 mg HS DAVID Administration Pentoxifylline 400 mg 03/23/25 18:00 03/24/25 17:08 Pentoxifylline 400 Mg Tabcr PO 400 mg QPM DAVID Administration Sevelamer Carbonate 0.8 gm 03/23/25 08:00 03/25/25 09:43 Sevelamer Carbonate 0.8 Gm Oral Powder Packet PO 0.8 gm TIDWM DAVID Administration Tamsulosin HCl 0.4 mg 03/23/25 21:00 03/24/25 20:44 Tamsulosin Hcl 0.4 Mg Capsule PO 0.4 mg QHS DAVID Administration Umeclidinium [place] 1 puff 03/23/25 08:00 03/25/25 08:30 Umeclidinium [place] 62.5 Mcg Ellipta INHALATION 1 puff DAILYRT DAVID Administration Vitamin B Complex 1 cap 03/23/25 09:00 03/25/25 09:55 Vitamin B Complex Capsule PO 1 cap DAILY DAVID Administration Radiology Results: ITS Impressions Chest X-Ray 03/23/25 05:29 Impression: Possible left lower lobe pneumonia. Loop recorder. Head CT 03/23/25 05:30 Impression: No intracranial hemorrhage, mass, or acute infarct. Atrophy and chronic white matter changes, as above. Right maxillary sinus disease. Cervical Spine CT 03/23/25 05:39 Impression: No acute fracture or subluxation of the cervical spine. Stable extensive erosive/destructive changes of the C4and C5 vertebral bodies in particular, with additional erosive change at the inferior aspect of C3 vertebral body, most likely related to severe chronic degenerative spondyloarthropathy versus possibly other inflammatory/erosive arthropathy. Stable advanced degenerative spondylitic changes in the cervical spine otherwise, as above. Labs Labs: Laboratory Results - last 24 hr 03/24/25 03/24/25 03/24/25 12:27 16:44 21:19 WBC RBC Hgb Hct MCV MCH MCHC RDW Plt Count MPV Immature Gran % (Auto) Neut % (Auto) Lymph % (Auto) [place] % (Auto) Eos % (Auto) Baso % (Auto) Lymph # (Auto) [place] # (Auto) Eos # (Auto) Baso # (Auto) Abs Immat Gran (auto) Absolute Neuts (auto) Absolute Nucleated RBC Band Neutrophils % Nucleated RBC % Platelet Estimate Hypochromasia Anisocytosis Target Cells Schistocytes Sodium Potassium Chloride Carbon Dioxide Anion Gap BUN Creatinine Estim Creat Clear Calc Estimated GFR Glucose POC Capillary Glucose 79 221 H 130 H Calcium Phosphorus Magnesium Total Bilirubin AST ALT Alkaline Phosphatase Total Protein Albumin 03/25/25 03/25/25 06:01 07:42 WBC 5.7 RBC 3.88 L Hgb 10.3 L Hct 35.4 L MCV 91.2 MCH 26.5 MCHC 29.1 L RDW 18.7 H Plt Count 220 MPV 11.1 H Immature Gran % (Auto) 0.9 H Neut % (Auto) 66.4 Lymph % (Auto) 14.8 L [place] % (Auto) 14.3 H Eos % (Auto) 2.5 Baso % (Auto) 1.1 Lymph # (Auto) 0.84 L [place] # (Auto) 0.8 H Eos # (Auto) 0.1 Baso # (Auto) 0.1 Abs Immat Gran (auto) 0.05 H Absolute Neuts (auto) 3.8 Absolute Nucleated RBC 0.000 Band Neutrophils % Not Reportable Nucleated RBC % 0.0 Platelet Estimate Adequate Hypochromasia 1+ Anisocytosis 1+ Target Cells 1+ Schistocytes None seen Sodium 132 L Potassium 4.2 Chloride 93 L Carbon Dioxide 32 H Anion Gap 7 BUN 31 H D Creatinine 4.19 H Estim Creat Clear Calc 15 Estimated GFR 14 L Glucose 85 POC Capillary Glucose 88 Calcium 9.2 Phosphorus 3.4 Magnesium 2.2 Total Bilirubin 0.3 AST 13 L ALT 8 Alkaline Phosphatase 54 Total Protein 6.1 L Albumin 3.5 Quality VTE Prophylaxis VTE prophylaxis: pharmacologic ordered
[2025-03-25 11:23] LABS: Glucose Point of Care 105 mg/dl (65-105)
[2025-03-25] MEDS: DOXYCYCLINE HYCLATE 100 MG TABLET PO ×2 (11:38→20:50)
--- NOTE | 2025-03-25 12:52 | P.PNNP_ITS ---
Progress Note: A&P Assessment and Plan (1) End stage renal disease: Code(s): N18.6 - End stage renal disease Status: Chronic Assessment and Plan: * The patient has end-stage renal disease. * This is most likely related to his diabetes hypertension and vascular disease. * his schedule is Sunday * hemodialysis due tomorrow * continue T/T/S outpatient dialysis schedule * will remove more fluid tomorrow. * Potassium bicarbonate and BUN are all good (2) Altered mental status: Code(s): R41.82 - Altered mental status, unspecified Status: Acute Assessment and Plan: * The patient had a change in mental status. * possibly related to UTI? * he is at his baseline now (3) Volume overload: Code(s): E87.70 - Fluid overload, unspecified Status: Acute Assessment and Plan: * He has chronic volume overload because he drinks a lot of fluid in the sn[place]. * Will remove more fluid tomorrow (4) Atrial fibrillation: Code(s): I48.91 - Unspecified atrial fibrillation Status: Chronic Assessment and Plan: * rate control strategy * pulse 67 (5) Hypercalcemia: Code(s): E83.52 - Hypercalcemia Status: Chronic Assessment and Plan: * This is good this time around. (6) Anemia: Code(s): D64.9 - Anemia, unspecified Status: Chronic Assessment and Plan: * due to ESRD * Epogen with HD * Hemoglobin 10 today. (7) Essential (primary) hypertension: Code(s): I10 - Essential (primary) hypertension Status: Chronic Assessment and Plan: * Systolic 140s to 160s. Will remove fluid tomorrow and see how it looks (8) IDDM (insulin dependent diabetes mellitus): Status: Chronic Assessment and Plan: * follow accu-cheks * glycemic control per hospitalist Subjective Date/time seen: 03/25/25 12:52 Interval history: patient is alert. He feels okay. Physical therapy working with him. He seems to be doing well with the walker. She is not recommending acute rehabilitation so far. Exam Narrative: WDWN in NAD skin no rash head ncat lungs clear bilaterally cor reg no rub abd BS+ nontender and soft ext no cyanosis or edema. Objective Data Vital Signs Vital Signs: Vital Signs - 24 hr 03/24/25 14:34 03/24/25 20:00 03/24/25 20:44 Temperature 97.9 F Pulse Rate 68 68 Respiratory Rate 17 Blood Pressure 144/58 H Pulse Oximetry 96 96 Oxygen Delivery Nasal Cannula Oxygen Flow Rate 2 03/24/25 21:15 03/24/25 22:53 03/24/25 22:53 Temperature 97.2 F L Pulse Rate 68 75 Respiratory Rate 20 15 Blood Pressure 154/76 H Pulse Oximetry 94 98 98 Oxygen Delivery BiPAP BiPAP Oxygen Flow Rate 2 03/25/25 03:35 03/25/25 04:45 03/25/25 08:00 Temperature 97.3 F L Pulse Rate 70 58 L Respiratory Rate 14 20 Blood Pressure 162/74 H Pulse Oximetry 98 100 98 Oxygen Delivery BiPAP Nasal Cannula Oxygen Flow Rate 2.5 03/25/25 08:30 03/25/25 09:55 03/25/25 10:08 Temperature Pulse Rate 67 Respiratory Rate Blood Pressure Pulse Oximetry 100 Oxygen Delivery Nasal Cannula Nasal Cannula Oxygen Flow Rate 2 2 03/25/25 11:38 Temperature Pulse Rate Respiratory Rate Blood Pressure Pulse Oximetry Oxygen Delivery Nasal Cannula Oxygen Flow Rate 2 Intake/Output Intake/Output: Intake & Output 03/22/25 03/23/25 03/24/25 03/25/25 23:59 23:59 23:59 23:59 Intake Total 700 1230 980 Output Total 900 0 3000 Balance -900 700 -1770 980 Meds/Results Medications: Active Medications Generic Name Dose Route Start Last Admin Trade Name Freq PRN Reason Stop Dose Admin Acetaminophen 650 mg 03/23/25 01:37 03/25/25 05:46 Acetaminophen 325 Mg Tablet PO 650 mg Q4H PRN Administration Mild Pain (1-3) or Fever Amlodipine Besylate 10 mg 03/23/25 09:00 03/25/25 09:55 Amlodipine Besylate 10 Mg Tablet PO 10 mg DAILY DAVID Administration Apixaban 2.5 mg 03/23/25 21:00 03/25/25 09:55 Apixaban 2.5 Mg Tablet PO 2.5 mg Q12HR DAVDI Administration Aspirin 81 mg 03/23/25 09:00 03/25/25 09:54 Aspirin 81 Mg Enteric Tablet PO 81 mg DAILY DAVID Administration Atorvastatin Calcium 20 mg 03/23/25 21:00 03/24/25 20:44 Atorvastatin 20 Mg Tablet PO 20 mg HS DAVID Administration Bisacodyl 10 mg 03/23/25 06:46 Bisacodyl 10 Mg Suppository RECTAL DAILY PRN constipation Carvedilol 25 mg 03/23/25 09:00 03/25/25 09:55 Carvedilol 25 Mg Tablet PO 25 mg Q12HR DAVID Administration Cinacalcet 90 mg 03/23/25 09:00 03/25/25 09:54 Cinacalcet 30 Mg Tablet PO 90 mg DAILY DAVID Administration Dextrose 12.5 gm 03/23/25 06:39 Dextrose 50% 25 Gm/50 Ml Syringe IV PUSH PRN PRN Hypoglycemia Protocol Doxycycline Hyclate 100 mg 03/25/25 11:15 03/25/25 11:38 Doxycycline Hyclate 100 Mg Tablet PO 03/29/25 21:01 100 mg Q12HR DAVID Administration Epoetin David-epbx 10,000 units 03/24/25 09:00 03/24/25 10:46 Epoetin David-Epbx 10,000 Units/Ml Vial IV PUSH 10,000 units TUTHSA@09 DAVID Administration Finasteride 5 mg 03/23/25 09:00 03/25/25 09:55 Finasteride 5 Mg Tablet PO 5 mg QAM DAVID Administration Furosemide 80 mg 03/23/25 09:00 03/25/25 09:55 Furosemide 80 Mg Tablet PO 80 mg BID DAVID Administration Gabapentin 100 mg 03/23/25 09:00 03/25/25 12:47 Gabapentin 100 Mg Capsule PO 100 mg TID DAVID Administration Glucagon 1 mg 03/23/25 06:39 Glucagon For Inj 1 Mg Vial IM PRN PRN Hypoglycemia Protocol Glucose 15 gm 03/23/25 06:39 Glucose Oral Gel 15 Gm Of Glucse In 37.5 Gm Tube PO PRN PRN Hypoglycemia Protocol Ceftriaxone Sodium 1 gm in 50 mls @ 100 mls/hr 03/23/25 23:00 03/24/25 23:41 Rocephin 1 Gm/Ns 50 Ml IVPB 03/28/25 23:29 Infused Q24H DAVID Infusion Dextrose 1,000 mls @ 100 mls/hr 03/23/25 06:39 Dextrose 5% 1,000 Ml IVPB PRN PRN Hypoglycemia Protocol Insulin Aspart 3 - 6 units 03/23/25 08:00 03/25/25 11:37 Insulin Aspart (*Bkc) 100 Units/Ml SUB-Q Not Given TIDWM [facility] Protocol Insulin Aspart 1 - 3 units 03/23/25 21:00 03/24/25 21:54 Insulin Aspart (*Bkc) 100 Units/Ml SUB-Q Not Given HS [facility] Protocol Insulin Aspart 4 units 03/23/25 08:00 03/25/25 11:38 Insulin Aspart (*Bkc) 100 Units/Ml SUB-Q Not Given TIDWM DAVID Insulin Glargine 6 units 03/23/25 21:00 03/24/25 21:54 Insulin Glargine (*Bkc) 100 Units/Ml SUB-Q 6 units HS DAVID Administration Levalbuterol HCl 0.63 mg 03/23/25 08:00 Levalbuterol Neb 1.25 Mg/3 Ml INHALATION Q6HRT PRN Shortness Of Breath Or Wheezing Loratadine 10 mg 03/23/25 09:00 03/25/25 09:54 Loratadine 10 Mg Tablet PO 10 mg DAILY DAVID Administration Melatonin 3 mg 03/23/25 21:00 03/24/25 20:44 Melatonin 3 Mg Tablet PO 3 mg HS DAVID Administration Pentoxifylline 400 mg 03/23/25 18:00 03/24/25 17:08 Pentoxifylline 400 Mg Tabcr PO 400 mg QPM DAVID Administration Sevelamer Carbonate 0.8 gm 03/23/25 08:00 03/25/25 12:47 Sevelamer Carbonate 0.8 Gm Oral Powder Packet PO 0.8 gm TIDWM DAVID Administration Tamsulosin HCl 0.4 mg 03/23/25 21:00 03/24/25 20:44 Tamsulosin Hcl 0.4 Mg Capsule PO 0.4 mg QHS DAVID Administration Umeclidinium [place] 1 puff 03/23/25 08:00 03/25/25 08:30 Umeclidinium [place] 62.5 Mcg Ellipta INHALATION 1 puff DAILYRT DAVID Administration Vitamin B Complex 1 cap 03/23/25 09:00 03/25/25 09:55 Vitamin B Complex Capsule PO 1 cap DAILY DAVID Administration Radiology Results: ITS Impressions Chest X-Ray 03/23/25 05:29 Impression: Possible left lower lobe pneumonia. Loop recorder. Head CT 03/23/25 05:30 Impression: No intracranial hemorrhage, mass, or acute infarct. Atrophy and chronic white matter changes, as above. Right maxillary sinus disease. Cervical Spine CT 03/23/25 05:39 Impression: No acute fracture or subluxation of the cervical spine. Stable extensive erosive/destructive changes of the C4and C5 vertebral bodies in particular, with additional erosive change at the inferior aspect of C3 vertebral body, most likely related to severe chronic degenerative spondyloarthropathy versus possibly other inflammatory/erosive arthropathy. Stable advanced degenerative spondylitic changes in the cervical spine otherwise, as above. Labs Labs: Laboratory Results - last 24 hr 03/24/25 03/24/25 03/25/25 16:44 21:19 06:01 WBC 5.7 RBC 3.88 L Hgb 10.3 L Hct 35.4 L MCV 91.2 MCH 26.5 MCHC 29.1 L RDW 18.7 H Plt Count 220 MPV 11.1 H Immature Gran % (Auto) 0.9 H Neut % (Auto) 66.4 Lymph % (Auto) 14.8 L [place] % (Auto) 14.3 H Eos % (Auto) 2.5 Baso % (Auto) 1.1 Lymph # (Auto) 0.84 L [place] # (Auto) 0.8 H Eos # (Auto) 0.1 Baso # (Auto) 0.1 Abs Immat Gran (auto) 0.05 H Absolute Neuts (auto) 3.8 Absolute Nucleated RBC 0.000 Band Neutrophils % Not Reportable Nucleated RBC % 0.0 Platelet Estimate Adequate Hypochromasia 1+ Anisocytosis 1+ Target Cells 1+ Schistocytes None seen Sodium 132 L Potassium 4.2 Chloride 93 L Carbon Dioxide 32 H Anion Gap 7 BUN 31 H D Creatinine 4.19 H Estim Creat Clear Calc 15 Estimated GFR 14 L Glucose 85 POC Capillary Glucose 221 H 130 H Calcium 9.2 Phosphorus 3.4 Magnesium 2.2 Total Bilirubin 0.3 AST 13 L ALT 8 Alkaline Phosphatase 54 Total Protein 6.1 L Albumin 3.5 03/25/25 03/25/25 07:42 11:18 WBC RBC Hgb Hct MCV MCH MCHC RDW Plt Count MPV Immature Gran % (Auto) Neut % (Auto) Lymph % (Auto) [place] % (Auto) Eos % (Auto) Baso % (Auto) Lymph # (Auto) [place] # (Auto) Eos # (Auto) Baso # (Auto) Abs Immat Gran (auto) Absolute Neuts (auto) Absolute Nucleated RBC Band Neutrophils % Nucleated RBC % Platelet Estimate Hypochromasia Anisocytosis Target Cells Schistocytes Sodium Potassium Chloride Carbon Dioxide Anion Gap BUN Creatinine Estim Creat Clear Calc Estimated GFR Glucose POC Capillary Glucose 88 105 Calcium Phosphorus Magnesium Total Bilirubin AST ALT Alkaline Phosphatase Total Protein Albumin
[2025-03-25 16:52] LABS: Glucose Point of Care 154 mg/dl (65-105)
[2025-03-25] MEDS: PENTOXIFYLLINE 400 MG TABCR PO (17:23)
[2025-03-25] MEDS: INSULIN ASPART (*BKC) 100 UNITS/ML SUB-Q (17:24)
[2025-03-25 20:12] LABS: Glucose Point of Care 190 mg/dl (65-105)
[2025-03-25] MEDS: ATORVASTATIN 20 MG TABLET PO (20:49)
[2025-03-25] MEDS: TAMSULOSIN HCL 0.4 MG CAPSULE PO (20:50)
[2025-03-25] MEDS: INSULIN GLARGINE (*BKC) 100 UNITS/ML 6 UNITS SUB-Q (20:51)
[2025-03-25] MEDS: MELATONIN 3 MG TABLET PO (20:51)
--- NOTE | 2025-03-25 23:20 | PC.NURSE ---
In room to complete IV antibiotic and noted that Pt. had waffle boot removed from Rt. foot/heel. Informed Pt. that I was going to place waffle boot back on and Pt. stated 'leave it off.' Verified with Pt. that he wanted waffle boot off and he said that he did. Pt. refusing waffle boot to Rt. foot/heel at this time.
[2025-03-26] VITALS (26 sets, daily range): BP systolic 103–170; BP diastolic 40–86; PULSE 64–81; RESP 13–20; TEMP 35.9–37; O2SAT 96–100
[2025-03-26 06:44] LABS: Basophils Absolute Auto 0.1 K/mm3 (0.0-0.1); Eosinophils Absolute Auto 0.2 K/mm3 (0-0.3); Eosinophils Percent Auto 3.8 % (0-4.4); Hematocrit 35.2 % (42.0-52.0); Hemoglobin 10.2 g/dL (14.0-18.0); Immature Granulocyte Absolute 0.07 K/mm3 (0.00-0.031); Immature Granulocyte Percent A 1.2 % (0-0.5); Lymphocytes Absolute Auto 0.84 K/mm3 (0.9-3.2); Lymphocytes Percent Auto 14.5 % (18.3-44.2); Mean Corpuscular Hemoglobin 26.3 pg (26-34); Mean Corpuscular Volume 90.7 fl (80-100); Mean Platelet Volume 10.8 fl (7.4-10.4); Monocytes Absolute Auto 0.7 K/mm3 (0.1-0.6); Monocytes Percent Auto 12.8 % (2.6-8.5); Neutrophils Absolute Auto 3.9 K/mm3 (1.3-6.7); Neutrophils Percent Auto 66.7 % (45.5-73.1); Platelet Count Result 215 k/mm3 (150-375); Red Blood Count 3.88 M/mm3 (4.6-6.20); Red Cell Distribution Width 18.7 % (11.5-14.5); White Blood Count 5.8 K/mm3 (4.5-10.0)
[2025-03-26 07:05] LABS: Alanine Aminotransferase 9 U/L (6-50); Albumin Level 3.6 g/dL (3.5-5.1); Alkaline Phosphatase 56 U/L (38-126); Anion Gap 8 mmol/L (4-12); Aspartate Amino Transferase 19 U/L (17-59); Bilirubin,Total 0.3 mg/dL (0.2-1.3); Blood Urea Nitrogen 52 mg/dL (9-20); Carbon Dioxide 33 mmol/L (22-30); Chloride 91 mmol/L (98-107); Estimated CRCL calculation 11 ml/min; Estimated Glomerular Filt Rate 10; Glucose 92 mg/dL (65-110); Magnesium 2.2 mg/dL (1.6-2.3); Phosphorus 3.8 mg/dL (2.5-4.5); Sodium 132 mmol/L (137-145); Total Protein 6.1 g/dL (6.3-8.2)
[2025-03-26 07:33] LABS: Platelet Estimate Adequate (Adequate)
[2025-03-26 07:35] LABS: Anisocytosis 1+; Hypochromasia 1+; Schistocytes None Seen
[2025-03-26 07:47] LABS: Glucose Point of Care 84 mg/dl (65-105)
[2025-03-26] MEDS: ACETAMINOPHEN 325 MG TABLET 650 MG PO ×2 (09:48→17:59)
--- NOTE | 2025-03-26 11:06 | P.PNNP_ITS ---
Progress Note: A&P Assessment and Plan (1) End stage renal disease: Code(s): N18.6 - End stage renal disease Status: Chronic Assessment and Plan: * The patient has end-stage renal disease. * This is most likely related to his diabetes hypertension and vascular disease. * his schedule is Sunday * dialysis is underway * continue T/T/S outpatient dialysis schedule * he is getting some fluid off * discharge okay any time from the kidney standpoint (2) Altered mental status: Code(s): R41.82 - Altered mental status, unspecified Status: Acute Assessment and Plan: * The patient had a change in mental status. * possibly related to UTI? * he was on baclofen and cyclobenzaprine as well. * he is at his baseline now * Will make baclofen an allergy because he should probably never have this again since he has end-stage renal disease (3) Volume overload: Code(s): E87.70 - Fluid overload, unspecified Status: Acute Assessment and Plan: * He has chronic volume overload because he [place]. * removing some fluid now (4) Atrial fibrillation: Code(s): I48.91 - Unspecified atrial fibrillation Status: Chronic Assessment and Plan: * rate control strategy * pulse 67 (5) Hypercalcemia: Code(s): E83.52 - Hypercalcemia Status: Chronic Assessment and Plan: * This is good this time around. (6) Anemia: Code(s): D64.9 - Anemia, unspecified Status: Chronic Assessment and Plan: * due to ESRD * Epogen with HD * Hemoglobin has been stable (7) Essential (primary) hypertension: Code(s): I10 - Essential (primary) hypertension Status: Chronic Assessment and Plan: * Systolic 140s to 160s. * add amlodipine (8) IDDM (insulin dependent diabetes mellitus): Status: Chronic Assessment and Plan: * follow accu-cheks * glycemic control per hospitalist Subjective Date/time seen: 03/26/25 11:06 Interval history: patient is on dialysis and tolerating it well. He was seen at 845 a.m.. patient feels okay. No chest pain or shortness of breath Exam Narrative: WDWN in NAD skin no rash or subcu nodule head ncat lungs clear bilaterally cor reg no rub or gallop abd BS+ nontender and soft ext no cyanosis or edema. Objective Data Vital Signs Vital Signs: Vital Signs - 24 hr 03/25/25 11:38 03/25/25 14:00 03/25/25 20:00 Temperature 98.0 F Pulse Rate 67 Respiratory Rate 18 Blood Pressure 115/64 Pulse Oximetry 100 Oxygen Delivery Nasal Cannula BiPAP Oxygen Flow Rate 2 03/25/25 20:50 03/25/25 20:54 03/25/25 23:18 Temperature 97.1 F L Pulse Rate 72 72 71 Respiratory Rate 15 17 Blood Pressure 140/61 Pulse Oximetry 100 98 Oxygen Delivery BiPAP Oxygen Flow Rate 03/26/25 05:22 03/26/25 08:42 03/26/25 08:42 Temperature 98.1 F 98.1 F Pulse Rate 74 70 Respiratory Rate 16 18 Blood Pressure 170/86 H 154/75 H Pulse Oximetry 99 Oxygen Delivery Oxygen Flow Rate 2 03/26/25 08:51 03/26/25 09:00 03/26/25 09:15 Temperature Pulse Rate 64 71 68 Respiratory Rate Blood Pressure 156/84 H 156/71 H 150/78 H Pulse Oximetry Oxygen Delivery Oxygen Flow Rate 03/26/25 09:30 03/26/25 09:45 03/26/25 10:00 Temperature Pulse Rate 70 70 66 Respiratory Rate Blood Pressure 140/68 152/75 H 145/66 H Pulse Oximetry Oxygen Delivery Oxygen Flow Rate 03/26/25 10:15 03/26/25 10:30 03/26/25 10:45 Temperature Pulse Rate 68 75 76 Respiratory Rate Blood Pressure 142/70 H 148/68 H 156/76 H Pulse Oximetry Oxygen Delivery Oxygen Flow Rate 03/26/25 11:00 Temperature Pulse Rate 78 Respiratory Rate Blood Pressure 164/75 H Pulse Oximetry Oxygen Delivery Oxygen Flow Rate Intake/Output Intake/Output: Intake & Output 03/23/25 03/24/25 03/25/25 03/26/25 23:59 23:59 23:59 23:59 Intake Total 700 1230 1844 640 Output Total 0 3000 100 0 Balance 700 -1770 1744 640 Meds/Results Medications: Active Medications Generic Name Dose Route Start Last Admin Trade Name Freq PRN Reason Stop Dose Admin Acetaminophen 650 mg 03/23/25 01:37 03/26/25 09:48 Acetaminophen 325 Mg Tablet PO 650 mg Q4H PRN Administration Mild Pain (1-3) or Fever Amlodipine Besylate 10 mg 03/23/25 09:00 03/25/25 09:55 Amlodipine Besylate 10 Mg Tablet PO 10 mg DAILY DAVID Administration Apixaban 2.5 mg 03/23/25 21:00 03/25/25 20:51 Apixaban 2.5 Mg Tablet PO 2.5 mg Q12HR DAVID Administration Aspirin 81 mg 03/23/25 09:00 03/25/25 09:54 Aspirin 81 Mg Enteric Tablet PO 81 mg DAILY DAVID Administration Atorvastatin Calcium 20 mg 03/23/25 21:00 03/25/25 20:49 Atorvastatin 20 Mg Tablet PO 20 mg HS DAVID Administration Bisacodyl 10 mg 03/23/25 06:46 Bisacodyl 10 Mg Suppository RECTAL DAILY PRN constipation Carvedilol 25 mg 03/23/25 09:00 03/25/25 20:50 Carvedilol 25 Mg Tablet PO 25 mg Q12HR DAVID Administration Cinacalcet 90 mg 03/23/25 09:00 03/25/25 09:54 Cinacalcet 30 Mg Tablet PO 90 mg DAILY DAVID Administration Dextrose 12.5 gm 03/23/25 06:39 Dextrose 50% 25 Gm/50 Ml Syringe IV PUSH PRN PRN Hypoglycemia Protocol Doxycycline Hyclate 100 mg 03/25/25 11:15 03/25/25 20:50 Doxycycline Hyclate 100 Mg Tablet PO 03/29/25 21:01 100 mg Q12HR DAVID Administration Epoetin David-epbx 10,000 units 03/24/25 09:00 03/24/25 10:46 Epoetin David-Epbx 10,000 Units/Ml Vial IV PUSH 10,000 units TUTHSA@09 [facility] Administration Finasteride 5 mg 03/23/25 09:00 03/25/25 09:55 Finasteride 5 Mg Tablet PO 5 mg QAM DAVID Administration Furosemide 80 mg 03/23/25 09:00 03/25/25 17:23 Furosemide 80 Mg Tablet PO 80 mg BID DAVID Administration Gabapentin 100 mg 03/23/25 09:00 03/26/25 08:50 Gabapentin 100 Mg Capsule PO Not Given TID DAVID Glucagon 1 mg 03/23/25 06:39 Glucagon For Inj 1 Mg Vial IM PRN PRN Hypoglycemia Protocol Glucose 15 gm 03/23/25 06:39 Glucose Oral Gel 15 Gm Of Glucse In 37.5 Gm Tube PO PRN PRN Hypoglycemia Protocol Ceftriaxone Sodium 1 gm in 50 mls @ 100 mls/hr 03/23/25 23:00 03/25/25 23:08 Rocephin 1 Gm/Ns 50 Ml IVPB 03/28/25 23:29 Infused Q24H DAVID Infusion Dextrose 1,000 mls @ 100 mls/hr 03/23/25 06:39 Dextrose 5% 1,000 Ml IVPB PRN PRN Hypoglycemia Protocol Albumin Human 50 mls @ 999 mls/hr 03/25/25 12:56 Albutein IVPB 03/26/25 12:55 Q10M PRN HYPOTENSION Insulin Aspart 3 - 6 units 03/23/25 08:00 03/26/25 08:30 Insulin Aspart (*Bkc) 100 Units/Ml SUB-Q Not Given TIDWM DAVID Protocol Insulin Aspart 1 - 3 units 03/23/25 21:00 03/25/25 20:49 Insulin Aspart (*Bkc) 100 Units/Ml SUB-Q Not Given HS DAVID Protocol Insulin Aspart 4 units 03/23/25 08:00 03/26/25 08:50 Insulin Aspart (*Bkc) 100 Units/Ml SUB-Q Not Given TIDWM DAVID Insulin Glargine 6 units 03/23/25 21:00 03/25/25 20:51 Insulin Glargine (*Bkc) 100 Units/Ml SUB-Q 6 units HS DAVID Administration Levalbuterol HCl 0.63 mg 03/23/25 08:00 Levalbuterol Neb 1.25 Mg/3 Ml INHALATION Q6HRT PRN Shortness Of Breath Or Wheezing Loratadine 10 mg 03/23/25 09:00 03/25/25 09:54 Loratadine 10 Mg Tablet PO 10 mg DAILY DAVID Administration Melatonin 3 mg 03/23/25 21:00 03/25/25 20:51 Melatonin 3 Mg Tablet PO 3 mg HS DAVID Administration Pentoxifylline 400 mg 03/23/25 18:00 03/25/25 17:23 Pentoxifylline 400 Mg Tabcr PO 400 mg QPM DAVID Administration Sevelamer Carbonate 0.8 gm 03/23/25 08:00 03/26/25 08:50 Sevelamer Carbonate 0.8 Gm Oral Powder Packet PO Not Given TIDWM DAVID Tamsulosin HCl 0.4 mg 03/23/25 21:00 03/25/25 20:50 Tamsulosin Hcl 0.4 Mg Capsule PO 0.4 mg QHS DAVID Administration Umeclidinium [place] 1 puff 03/23/25 08:00 03/26/25 08:55 Umeclidinium [place] 62.5 Mcg Ellipta INHALATION Not Given DAILYRT DAVID Vitamin B Complex 1 cap 03/23/25 09:00 03/25/25 09:55 Vitamin B Complex Capsule PO 1 cap DAILY DAVID Administration Radiology Results: ITS Impressions Chest X-Ray 03/23/25 05:29 Impression: Possible left lower lobe pneumonia. Loop recorder. Head CT 03/23/25 05:30 Impression: No intracranial hemorrhage, mass, or acute infarct. Atrophy and chronic white matter changes, as above. Right maxillary sinus disease. Cervical Spine CT 03/23/25 05:39 Impression: No acute fracture or subluxation of the cervical spine. Stable extensive erosive/destructive changes of the C4and C5 vertebral bodies in particular, with additional erosive change at the inferior aspect of C3 vertebral body, most likely related to severe chronic degenerative spondyloarthropathy versus possibly other inflammatory/erosive arthropathy. Stable advanced degenerative spondylitic changes in the cervical spine otherwise, as above. Labs Labs: Laboratory Results - last 24 hr 03/25/25 03/25/25 03/25/25 11:18 16:49 19:59 WBC RBC Hgb Hct MCV MCH MCHC RDW Plt Count MPV Immature Gran % (Auto) Neut % (Auto) Lymph % (Auto) [place] % (Auto) Eos % (Auto) Baso % (Auto) Lymph # (Auto) [place] # (Auto) Eos # (Auto) Baso # (Auto) Abs Immat Gran (auto) Absolute Neuts (auto) Absolute Nucleated RBC Band Neutrophils % Nucleated RBC % Platelet Estimate Hypochromasia Anisocytosis Schistocytes Sodium Potassium Chloride Carbon Dioxide Anion Gap BUN Creatinine Estim Creat Clear Calc Estimated GFR Glucose POC Capillary Glucose 105 154 H 190 H Calcium Phosphorus Magnesium Total Bilirubin AST ALT Alkaline Phosphatase Total Protein Albumin 03/26/25 03/26/25 06:29 07:37 WBC 5.8 RBC 3.88 L Hgb 10.2 L Hct 35.2 L MCV 90.7 MCH 26.3 MCHC 29.0 L RDW 18.7 H Plt Count 215 MPV 10.8 H Immature Gran % (Auto) 1.2 H Neut % (Auto) 66.7 Lymph % (Auto) 14.5 L [place] % (Auto) 12.8 H Eos % (Auto) 3.8 Baso % (Auto) 1.0 Lymph # (Auto) 0.84 L [place] # (Auto) 0.7 H Eos # (Auto) 0.2 Baso # (Auto) 0.1 Abs Immat Gran (auto) 0.07 H Absolute Neuts (auto) 3.9 Absolute Nucleated RBC 0.000 Band Neutrophils % Not Reportable Nucleated RBC % 0.0 Platelet Estimate Adequate Hypochromasia 1+ Anisocytosis 1+ Schistocytes None seen Sodium 132 L Potassium 5.0 Chloride 91 L Carbon Dioxide 33 H Anion Gap 8 BUN 52 H D Creatinine 5.42 H Estim Creat Clear Calc 11 Estimated GFR 10 L Glucose 92 POC Capillary Glucose 84 Calcium 10.0 Phosphorus 3.8 Magnesium 2.2 Total Bilirubin 0.3 AST 19 ALT 9 Alkaline Phosphatase 56 Total Protein 6.1 L Albumin 3.6
[2025-03-26] MEDS: EPOETIN ALFA-EPBX 10,000 UNITS/ML VIAL 10000 UNITS IV PUSH (12:19)
[2025-03-26 12:50] LABS: Glucose Point of Care 81 mg/dl (65-105)
[2025-03-26] MEDS: SODIUM CHLORIDE 0.9% IV 1,000 ML 999 ML IV CONT (13:13)
--- NOTE | 2025-03-26 13:40 | P.PNIM_ITS ---
Progress Note: A&P Assessment and Plan (1) Chronic obstructive pulmonary disease: Code(s): J44.9 - Chronic obstructive pulmonary disease, unspecified Status: Acute Assessment and Plan: * Levalbuterol 0.63 mg q 6 PRN. * Umeclidinium 1 puff daily. (2) Pneumonia: Qualifiers: Laterality: unspecified laterality Lung location: unspecified part of lung Pneumonia type: due to unspecified organism Qualified Code(s): J18.9 - Pneumonia, unspecified organism Code(s): J18.9 - Pneumonia, unspecified organism Status: Acute Assessment and Plan: * Chest x-ray possible left lower lobe pneumonia. * Doxycycline 100 mg PO q 12 and Ceftriaxone 1 gram IVPB daily. * Blood cultures no growth. * Incentive spirometer. * PT/OT (3) Insulin dependent type 2 diabetes mellitus: Onset Date: ~2009 Code(s): E11.9 - Type 2 diabetes mellitus without complications; Z79.4 - USP (current) use of insulin Status: Acute Assessment and Plan: * SSI, Hypoglycemic protocol, and accu checks. * Lantus 6 units subq qhs. * Aspart 4 units subq with meals. * HgbA1C 6.2% on 12/22/24. (4) Atrial fibrillation: Code(s): I48.91 - Unspecified atrial fibrillation Status: Chronic Assessment and Plan: * Atrial fibrillation anticoagulation intermittent neurological symptoms be related to this. His chads Vasc score is at least 5. Started on Eliquis. He likely had been off anticoagulation due to anemia requiring blood transfusion in 2023. * Eliquis 2.5 mg PO q 12. (5) End-stage renal disease on hemodialysis: Code(s): N18.6 - End stage renal disease; Z99.2 - Dependence on renal dialysis Status: Acute Assessment and Plan: * HD T-TH-Sat. * Nephrology consulted. * Fluid restriction 1500 ml day. (6) Elevated troponin: Code(s): R79.89 - Other specified abnormal findings of blood chemistry Status: Acute Assessment and Plan: * mildly elevated. (7) Obstructive sleep apnea: Code(s): G47.33 - Obstructive sleep apnea (adult) (pediatric) Status: Acute Assessment and Plan: * CARITO on CPAP however noncompliant, switched to bipap at night per hypercapnic resp failure. tolerated bipap. Will continue BiPAP at night. (8) Hypertension: Code(s): I10 - Essential (primary) hypertension Status: Acute Assessment and Plan: * Blood pressure 154/75. * Amlodipine 10 mg PO daily and Carvedilol 25 mg PO q 12. * Furosemide 80 mg PO BID. (9) Anemia: Code(s): D64.9 - Anemia, unspecified Status: Acute Assessment and Plan: * H&H 10.2/35.2. * monitor. (10) Somnolence: Code(s): R40.0 - Somnolence Status: Acute Assessment and Plan: * Polypharmacy stopped his baclofen, cyclobenzaprine. (11) Benign prostatic hyperplasia: Qualifiers: Lower urinary tract symptom detail: unspecified Code(s): N40.0 - Benign prostatic hyperplasia without lower urinary tract symptoms Status: Acute Assessment and Plan: * Tamsulosin 0.4 mg PO qhs. Subjective Date/time seen: 03/26/25 13:40 Interval history: Patient sitting up in chair. Patient had just returned from dialysis. Patient reports tolerating dialysis well. Patient denies chest pain, palpitations, headache, nausea, or vomiting. Pain is a 6 in right foot, constant, and aching. Patient reports dizziness when he gets up too quickly. Review of Systems Review of Systems: All systems reviewed & are unremarkable except as noted in HPI and below Exam Const: General: no acute distress and uncomfortable Resp: Effort & Inspection: normal respiratory effort Auscultation: diminished lung sounds Cardio: Rate: regular rate Rhythm: regular rhythm GI: GI Palp: Yes Soft to palpation Auscultation: normal bowel sounds Skin: Other: Warm and dry. Scattered bruises. Dressing intact to right heel ulcer. Neuro: Speech: normal speech Extrem: General: no pedal edema Psych: Mental Status: mental status grossly normal Affect: normal affect Objective Data Vital Signs Vital Signs: Vital Signs - 24 hr 03/25/25 14:00 03/25/25 20:00 03/25/25 20:50 Temperature 98.0 F Pulse Rate 67 72 Respiratory Rate 18 Blood Pressure 115/64 Pulse Oximetry 100 Oxygen Delivery BiPAP Oxygen Flow Rate 03/25/25 20:54 03/25/25 23:18 03/26/25 05:22 Temperature 97.1 F L 98.1 F Pulse Rate 72 71 74 Respiratory Rate 15 17 16 Blood Pressure 140/61 170/86 H Pulse Oximetry 100 98 99 Oxygen Delivery BiPAP Oxygen Flow Rate 03/26/25 08:42 03/26/25 08:42 03/26/25 08:51 Temperature 98.1 F Pulse Rate 70 64 Respiratory Rate 18 Blood Pressure 154/75 H 156/84 H Pulse Oximetry Oxygen Delivery Oxygen Flow Rate 2 03/26/25 09:00 03/26/25 09:15 03/26/25 09:30 Temperature Pulse Rate 71 68 70 Respiratory Rate Blood Pressure 156/71 H 150/78 H 140/68 Pulse Oximetry Oxygen Delivery Oxygen Flow Rate 03/26/25 09:45 03/26/25 10:00 03/26/25 10:15 Temperature Pulse Rate 70 66 68 Respiratory Rate Blood Pressure 152/75 H 145/66 H 142/70 H Pulse Oximetry Oxygen Delivery Oxygen Flow Rate 03/26/25 10:30 03/26/25 10:45 03/26/25 11:00 Temperature Pulse Rate 75 76 78 Respiratory Rate Blood Pressure 148/68 H 156/76 H 164/75 H Pulse Oximetry Oxygen Delivery Oxygen Flow Rate 03/26/25 11:15 03/26/25 11:30 03/26/25 11:45 Temperature Pulse Rate 76 80 78 Respiratory Rate Blood Pressure 134/78 162/79 H 150/77 H Pulse Oximetry Oxygen Delivery Oxygen Flow Rate 03/26/25 12:00 03/26/25 12:15 03/26/25 12:24 Temperature Pulse Rate 81 81 78 Respiratory Rate Blood Pressure 158/77 H 131/40 L 151/71 H Pulse Oximetry Oxygen Delivery Oxygen Flow Rate 03/26/25 12:35 Temperature 98.0 F Pulse Rate 72 Respiratory Rate 18 Blood Pressure 146/69 H Pulse Oximetry Oxygen Delivery Oxygen Flow Rate Intake/Output Intake/Output: Intake & Output 03/23/25 03/24/25 03/25/25 03/26/25 23:59 23:59 23:59 23:59 Intake Total 700 1230 1844 880 Output Total 0 3000 100 3500 Balance 700 -2270 6806 -6399 Meds/Results Medications: Active Medications Generic Name Dose Route Start Last Admin Trade Name Freq PRN Reason Stop Dose Admin Acetaminophen 650 mg 03/23/25 01:37 03/26/25 09:48 Acetaminophen 325 Mg Tablet PO 650 mg Q4H PRN Administration Mild Pain (1-3) or Fever Apixaban 2.5 mg 03/23/25 21:00 03/25/25 20:51 Apixaban 2.5 Mg Tablet PO 2.5 mg Q12HR DAVID Administration Aspirin 81 mg 03/23/25 09:00 03/25/25 09:54 Aspirin 81 Mg Enteric Tablet PO 81 mg DAILY DAVID Administration Atorvastatin Calcium 20 mg 03/23/25 21:00 03/25/25 20:49 Atorvastatin 20 Mg Tablet PO 20 mg HS DAVID Administration Bisacodyl 10 mg 03/23/25 06:46 Bisacodyl 10 Mg Suppository RECTAL DAILY PRN constipation Carvedilol 25 mg 03/23/25 09:00 03/25/25 20:50 Carvedilol 25 Mg Tablet PO 25 mg Q12HR DAVID Administration Cinacalcet 90 mg 03/23/25 09:00 03/25/25 09:54 Cinacalcet 30 Mg Tablet PO 90 mg DAILY DAVID Administration Dextrose 12.5 gm 03/23/25 06:39 Dextrose 50% 25 Gm/50 Ml Syringe IV PUSH PRN PRN Hypoglycemia Protocol Doxycycline Hyclate 100 mg 03/25/25 11:15 03/25/25 20:50 Doxycycline Hyclate 100 Mg Tablet PO 03/29/25 21:01 100 mg Q12HR DAVID Administration Epoetin David-epbx 10,000 units 03/24/25 09:00 03/26/25 12:19 Epoetin David-Epbx 10,000 Units/Ml Vial IV PUSH 10,000 units TUTA@09 DAVID Administration Finasteride 5 mg 03/23/25 09:00 03/25/25 09:55 Finasteride 5 Mg Tablet PO 5 mg QAM DAVID Administration Furosemide 80 mg 03/23/25 09:00 03/25/25 17:23 Furosemide 80 Mg Tablet PO 80 mg BID DAVID Administration Gabapentin 100 mg 03/23/25 09:00 03/26/25 08:50 Gabapentin 100 Mg Capsule PO Not Given TID DAVID Glucagon 1 mg 03/23/25 06:39 Glucagon For Inj 1 Mg Vial IM PRN PRN Hypoglycemia Protocol Glucose 15 gm 03/23/25 06:39 Glucose Oral Gel 15 Gm Of Glucse In 37.5 Gm Tube PO PRN PRN Hypoglycemia Protocol Ceftriaxone Sodium 1 gm in 50 mls @ 100 mls/hr 03/23/25 23:00 03/25/25 23:08 Rocephin 1 Gm/Ns 50 Ml IVPB 03/28/25 23:29 Infused Q24H DAVID Infusion Dextrose 1,000 mls @ 100 mls/hr 03/23/25 06:39 Dextrose 5% 1,000 Ml IVPB PRN PRN Hypoglycemia Protocol Insulin Aspart 3 - 6 units 03/23/25 08:00 03/26/25 08:30 Insulin Aspart (*Bkc) 100 Units/Ml SUB-Q Not Given TIDWM [facility] Protocol Insulin Aspart 1 - 3 units 03/23/25 21:00 03/25/25 20:49 Insulin Aspart (*Bkc) 100 Units/Ml SUB-Q Not Given HS [facility] Protocol Insulin Aspart 4 units 03/23/25 08:00 03/26/25 08:50 Insulin Aspart (*Bkc) 100 Units/Ml SUB-Q Not Given TIDWM DAVID Insulin Glargine 6 units 03/23/25 21:00 03/25/25 20:51 Insulin Glargine (*Bkc) 100 Units/Ml SUB-Q 6 units HS DAVID Administration Levalbuterol HCl 0.63 mg 03/23/25 08:00 Levalbuterol Neb 1.25 Mg/3 Ml INHALATION Q6HRT PRN Shortness Of Breath Or Wheezing Loratadine 10 mg 03/23/25 09:00 03/25/25 09:54 Loratadine 10 Mg Tablet PO 10 mg DAILY DAVID Administration Melatonin 3 mg 03/23/25 21:00 03/25/25 20:51 Melatonin 3 Mg Tablet PO 3 mg HS DAVID Administration Nifedipine 60 mg 03/26/25 11:30 Nifedipine 30 Mg Tab.Er.24 PO QAM DAVID Pentoxifylline 400 mg 03/23/25 18:00 03/25/25 17:23 Pentoxifylline 400 Mg Tabcr PO 400 mg QPM DAVID Administration Sevelamer Carbonate 0.8 gm 03/23/25 08:00 03/26/25 08:50 Sevelamer Carbonate 0.8 Gm Oral Powder Packet PO Not Given TIDWM DAVID Tamsulosin HCl 0.4 mg 03/23/25 21:00 03/25/25 20:50 Tamsulosin Hcl 0.4 Mg Capsule PO 0.4 mg QHS DAVID Administration Umeclidinium [place] 1 puff 03/23/25 08:00 03/26/25 08:55 Umeclidinium [place] 62.5 Mcg Ellipta INHALATION Not Given DAILYRT DAVID Vitamin B Complex 1 cap 03/23/25 09:00 03/25/25 09:55 Vitamin B Complex Capsule PO 1 cap DAILY DAVID Administration Radiology Results: ITS Impressions Chest X-Ray 03/23/25 05:29 Impression: Possible left lower lobe pneumonia. Loop recorder. Head CT 03/23/25 05:30 Impression: No intracranial hemorrhage, mass, or acute infarct. Atrophy and chronic white matter changes, as above. Right maxillary sinus disease. Cervical Spine CT 03/23/25 05:39 Impression: No acute fracture or subluxation of the cervical spine. Stable extensive erosive/destructive changes of the C4and C5 vertebral bodies in particular, with additional erosive change at the inferior aspect of C3 vertebral body, most likely related to severe chronic degenerative spondyloarthropathy versus possibly other inflammatory/erosive arthropathy. Stable advanced degenerative spondylitic changes in the cervical spine otherwise, as above. Labs Labs: Laboratory Results - last 24 hr 03/25/25 03/25/25 03/26/25 16:49 19:59 06:29 WBC 5.8 RBC 3.88 L Hgb 10.2 L Hct 35.2 L MCV 90.7 MCH 26.3 MCHC 29.0 L RDW 18.7 H Plt Count 215 MPV 10.8 H Immature Gran % (Auto) 1.2 H Neut % (Auto) 66.7 Lymph % (Auto) 14.5 L [place] % (Auto) 12.8 H Eos % (Auto) 3.8 Baso % (Auto) 1.0 Lymph # (Auto) 0.84 L [place] # (Auto) 0.7 H Eos # (Auto) 0.2 Baso # (Auto) 0.1 Abs Immat Gran (auto) 0.07 H Absolute Neuts (auto) 3.9 Absolute Nucleated RBC 0.000 Band Neutrophils % Not Reportable Nucleated RBC % 0.0 Platelet Estimate Adequate Hypochromasia 1+ Anisocytosis 1+ Schistocytes None seen Sodium 132 L Potassium 5.0 Chloride 91 L Carbon Dioxide 33 H Anion Gap 8 BUN 52 H D Creatinine 5.42 H Estim Creat Clear Calc 11 Estimated GFR 10 L Glucose 92 POC Capillary Glucose 154 H 190 H Calcium 10.0 Phosphorus 3.8 Magnesium 2.2 Total Bilirubin 0.3 AST 19 ALT 9 Alkaline Phosphatase 56 Total Protein 6.1 L Albumin 3.6 03/26/25 03/26/25 07:37 12:24 WBC RBC Hgb Hct MCV MCH MCHC RDW Plt Count MPV Immature Gran % (Auto) Neut % (Auto) Lymph % (Auto) [place] % (Auto) Eos % (Auto) Baso % (Auto) Lymph # (Auto) [place] # (Auto) Eos # (Auto) Baso # (Auto) Abs Immat Gran (auto) Absolute Neuts (auto) Absolute Nucleated RBC Band Neutrophils % Nucleated RBC % Platelet Estimate Hypochromasia Anisocytosis Schistocytes Sodium Potassium Chloride Carbon Dioxide Anion Gap BUN Creatinine Estim Creat Clear Calc Estimated GFR Glucose POC Capillary Glucose 84 81 Calcium Phosphorus Magnesium Total Bilirubin AST ALT Alkaline Phosphatase Total Protein Albumin Quality VTE Prophylaxis VTE prophylaxis: pharmacologic ordered
[2025-03-26] MEDS: ASPIRIN 81 MG ENTERIC TABLET PO (13:58)
[2025-03-26] MEDS: APIXABAN 2.5 MG TABLET PO ×2 (13:58→20:38)
[2025-03-26] MEDS: CINACALCET 30 MG TABLET 90 MG PO (13:59)
[2025-03-26] MEDS: FINASTERIDE 5 MG TABLET PO (13:59)
[2025-03-26] MEDS: VITAMIN B COMPLEX CAPSULE 1 CAP PO (13:59)
[2025-03-26] MEDS: GABAPENTIN 100 MG CAPSULE PO ×2 (13:59→17:54)
[2025-03-26] MEDS: DOXYCYCLINE HYCLATE 100 MG TABLET PO ×2 (14:01→20:38)
[2025-03-26] MEDS: LORATADINE 10 MG TABLET PO (14:01)
[2025-03-26] MEDS: SEVELAMER CARBONATE 0.8 GM ORAL POWDER PACKET PO ×2 (14:02→17:58)
[2025-03-26] MEDS: NIFEdipine 30 MG TAB.ER.24 60 MG PO (14:06)
[2025-03-26 14:44] LABS: MRSA (PCR) NOT DETECTED (NOT DETECTE)
[2025-03-26 16:41] LABS: Glucose Point of Care 158 mg/dl (65-105)
[2025-03-26] MEDS: FUROSEMIDE 80 MG TABLET PO (17:54)
[2025-03-26] MEDS: INSULIN ASPART (*BKC) 100 UNITS/ML SUB-Q (17:54)
[2025-03-26] MEDS: PENTOXIFYLLINE 400 MG TABCR PO (17:54)
--- NOTE | 2025-03-26 19:08 | PC.NURSE ---
On 03/26/25, the HOME AID, Sydni Cantor, provided care and completed [facility]ush[facility] documentation on this patient. I have reviewed the HOME AID's documentation and agree with the findings.
[2025-03-26 20:36] LABS: Glucose Point of Care 122 mg/dl (65-105)
[2025-03-26] MEDS: MELATONIN 3 MG TABLET PO (20:38)
[2025-03-26] MEDS: TAMSULOSIN HCL 0.4 MG CAPSULE PO (20:38)
[2025-03-26] MEDS: carvediloL 25 MG TABLET PO (20:38)
[2025-03-26] MEDS: ATORVASTATIN 20 MG TABLET PO (20:38)
[2025-03-26] MEDS: INSULIN GLARGINE (*BKC) 100 UNITS/ML 6 UNITS SUB-Q (20:39)
[2025-03-27] VITALS (7 sets, daily range): BP systolic 121–143; BP diastolic 57–62; PULSE 66–77; RESP 16–20; TEMP 35.8–36.6; O2SAT 95–100
[2025-03-27] MEDS: ACETAMINOPHEN 325 MG TABLET 650 MG PO ×2 (02:23→12:50)
[2025-03-27 07:14] LABS: Basophils Absolute Auto 0.1 K/mm3 (0.0-0.1); Eosinophils Absolute Auto 0.2 K/mm3 (0-0.3); Eosinophils Percent Auto 3.1 % (0-4.4); Hematocrit 32.9 % (42.0-52.0); Hemoglobin 9.6 g/dL (14.0-18.0); Immature Granulocyte Absolute 0.04 K/mm3 (0.00-0.031); Immature Granulocyte Percent A 0.7 % (0-0.5); Lymphocytes Absolute Auto 0.85 K/mm3 (0.9-3.2); Mean Corpuscular HGB Conc 29.2 g/dl (32-36); Mean Corpuscular Hemoglobin 26.4 pg (26-34); Mean Corpuscular Volume 90.6 fl (80-100); Mean Platelet Volume 11.7 fl (7.4-10.4); Monocytes Absolute Auto 0.8 K/mm3 (0.1-0.6); Neutrophils Absolute Auto 4.1 K/mm3 (1.3-6.7); Neutrophils Percent Auto 68.2 % (45.5-73.1); Nucleated Red Blood Cells Perc 0.3 % (0.0-0.2); Platelet Count Result 243 k/mm3 (150-375); Red Blood Count 3.63 M/mm3 (4.6-6.20); Red Cell Distribution Width 19.1 % (11.5-14.5); White Blood Count 6.1 K/mm3 (4.5-10.0)
[2025-03-27 07:26] LABS: Alanine Aminotransferase 8 U/L (6-50); Albumin Level 3.4 g/dL (3.5-5.1); Alkaline Phosphatase 54 U/L (38-126); Anion Gap 8 mmol/L (4-12); Aspartate Amino Transferase 13 U/L (17-59); Bilirubin,Total 0.2 mg/dL (0.2-1.3); Calcium 9.8 mg/dL (8.4-10.2); Carbon Dioxide 32 mmol/L (22-30); Chloride 94 mmol/L (98-107); Glucose 101 mg/dL (65-110); Magnesium 2.2 mg/dL (1.6-2.3); Phosphorus 2.8 mg/dL (2.5-4.5); Potassium 4.6 mmol/L (3.4-5.0); Sodium 134 mmol/L (137-145); Total Protein 5.8 g/dL (6.3-8.2)
[2025-03-27 07:31] LABS: Glucose Point of Care 94 mg/dl (65-105)
[2025-03-27 07:47] LABS: Blood Urea Nitrogen 46 mg/dL (9-20); Estimated CRCL calculation 16 ml/min; Estimated Glomerular Filt Rate 16
[2025-03-27] MEDS: NIFEdipine 30 MG TAB.ER.24 60 MG PO (08:41)
[2025-03-27] MEDS: LORATADINE 10 MG TABLET PO (08:41)
[2025-03-27] MEDS: VITAMIN B COMPLEX CAPSULE 1 CAP PO (08:41)
[2025-03-27] MEDS: APIXABAN 2.5 MG TABLET PO (08:41)
[2025-03-27] MEDS: ASPIRIN 81 MG ENTERIC TABLET PO (08:41)
[2025-03-27] MEDS: carvediloL 25 MG TABLET PO (08:41)
[2025-03-27] MEDS: FINASTERIDE 5 MG TABLET PO (08:41)
[2025-03-27] MEDS: CINACALCET 30 MG TABLET 90 MG PO (08:41)
[2025-03-27] MEDS: DOXYCYCLINE HYCLATE 100 MG TABLET PO (08:42)
[2025-03-27] MEDS: SEVELAMER CARBONATE 0.8 GM ORAL POWDER PACKET PO ×3 (08:42→17:19)
[2025-03-27] MEDS: FUROSEMIDE 80 MG TABLET PO ×2 (08:42→17:19)
[2025-03-27] MEDS: GABAPENTIN 100 MG CAPSULE PO ×3 (08:42→17:19)
[2025-03-27] MEDS: INSULIN ASPART (*BKC) 100 UNITS/ML SUB-Q ×3 (08:46→17:19)
[2025-03-27 08:47] LABS: Anisocytosis 1+; Hypochromasia 1+; Platelet Estimate Adequate (Adequate); Schistocytes None Seen
[2025-03-27] MEDS: UMECLIDINIUM BROMIDE 62.5 MCG ELLIPTA 1 PUFF INHALATION (09:34)
--- NOTE | 2025-03-27 10:47 | P.PNNP_ITS ---
Progress Note: A&P Assessment and Plan (1) End stage renal disease: Code(s): N18.6 - End stage renal disease Status: Chronic Assessment and Plan: * The patient has end-stage renal disease. * This is most likely related to his diabetes hypertension and vascular disease. * his schedule is Sunday * dialysis went well yesterday. * Fluid status looks good today. * Potassium is good * he will get dialysis tomorrow whether here or at [facility] if discharged. * discharge okay any time from the kidney standpoint (2) Altered mental status: Code(s): R41.82 - Altered mental status, unspecified Status: Acute Assessment and Plan: * The patient had a change in mental status. * Possibly due to UTI, baclofen, and cyclobenzaprine. * Resolved with treatment/withdrawal (3) Volume overload: Code(s): E87.70 - Fluid overload, unspecified Status: Acute Assessment and Plan: * He has chronic volume overload because he drinks a lot of fluid in the longterm. * doing better (4) Atrial fibrillation: Code(s): I48.91 - Unspecified atrial fibrillation Status: Chronic Assessment and Plan: * rate control strategy * pulse 66 (5) Hypercalcemia: Code(s): E83.52 - Hypercalcemia Status: Chronic Assessment and Plan: * This is good this time around. (6) Anemia: Code(s): D64.9 - Anemia, unspecified Status: Chronic Assessment and Plan: * due to ESRD * Epogen with HD * Hemoglobin has been stable (7) Essential (primary) hypertension: Code(s): I10 - Essential (primary) hypertension Status: Chronic Assessment and Plan: * Systolic is good on the amlodipine (8) IDDM (insulin dependent diabetes mellitus): Status: Chronic Assessment and Plan: * follow accu-cheks * glycemic control per hospitalist Subjective Date/time seen: 03/27/25 10:47 Interval history: Late entry Patient was seen Sunday the in the morning. patient is feeling okay today. He is up in a chair. He still has pain in his heel and his pre sacrum. He is eating well Exam Narrative: WDWN in NAD skin no rash or subcu nodule head ncat lungs clear to auscultation cor reg no rub or gallop abd BS+ nontender and soft ext no cyanosis or edema. heel bandaged. Objective Data Vital Signs Vital Signs: Vital Signs - 24 hr 03/27/25 14:00 Temperature 97.9 F Pulse Rate 66 Respiratory Rate 16 Blood Pressure 126/62 Pulse Oximetry 100 Intake/Output Intake/Output: Intake & Output 03/25/25 03/26/25 03/27/25 03/28/25 23:59 23:59 23:59 23:59 Intake Total 1844 1510 960 Output Total 100 3500 0 Balance 1743 960 Meds/Results Radiology Results: ITS Impressions Chest X-Ray 03/23/25 05:29 Impression: Possible left lower lobe pneumonia. Loop recorder. Head CT 03/23/25 05:30 Impression: No intracranial hemorrhage, mass, or acute infarct. Atrophy and chronic white matter changes, as above. Right maxillary sinus disease. Cervical Spine CT 03/23/25 05:39 Impression: No acute fracture or subluxation of the cervical spine. Stable extensive erosive/destructive changes of the C4and C5 vertebral bodies in particular, with additional erosive change at the inferior aspect of C3 vertebral body, most likely related to severe chronic degenerative s pondyloarthropathy versus possibly other inflammatory/erosive arthropathy. Stable advanced degenerative spondylitic changes in the cervical spine otherwise, as above. Labs Labs: Laboratory Results - last 24 hr 03/27/25 03/27/25 11:30 17:18 POC Capillary Glucose 88 114 H
[2025-03-27 11:36] LABS: Glucose Point of Care 88 mg/dl (65-105)
--- NOTE | 2025-03-27 14:30 | P.DS_ITS ---
DS: Admitting Diagnosis Discharge Date 03/27/2025 Admitting Diagnosis Multiple falls DS: Discharge Diagnosis Discharge Diagnosis (1) COPD (chronic obstructive pulmonary disease): Qualifiers: COPD type: unspecified COPD Qualified Code(s): J44.9 - Chronic obstructive pulmonary disease, unspecified Code(s): J44.9 - Chronic obstructive pulmonary disease, unspecified Status: Chronic (2) Pneumonia: Qualifiers: Laterality: unspecified laterality Lung location: unspecified part of lung Pneumonia type: due to unspecified organism Qualified Code(s): J18.9 - Pneumonia, unspecified organism Code(s): J18.9 - Pneumonia, unspecified organism Status: Acute (3) Insulin dependent type 2 diabetes mellitus: Onset Date: Code(s): E11.9 - Type 2 diabetes mellitus without complications; Z79.4 - long-term (current) use of insulin Status: Acute (4) Diabetic ulcer of left foot: Qualifiers: Diabetic foot ulcer location: heel Diabetes mellitus type: type 2 Non- pressure ulcer stage: limited to breakdown of skin Qualified Code(s): E11.621 - Type 2 diabetes mellitus with foot ulcer; L97.421 - Non-pressure chronic ulcer of left heel and midfoot limited to breakdown of skin Code(s): E11.621 - Type 2 diabetes mellitus with foot ulcer; L97.529 - Non-pressure chronic ulcer of other part of left foot with unspecified severity Status: Acute (5) Atrial fibrillation: Code(s): I48.91 - Unspecified atrial fibrillation Status: Chronic (6) End-stage renal disease on hemodialysis: Code(s): N18.6 - End stage renal disease; Z99.2 - Dependence on renal dialysis Status: Acute (7) Obstructive sleep apnea: Code(s): G47.33 - Obstructive sleep apnea (adult) (pediatric) Status: Acute (8) Weakness: Code(s): R53.1 - Weakness Status: Acute (9) Anemia: Code(s): D64.9 - Anemia, unspecified Status: Acute (10) Frequent falls: Code(s): R29.6 - Repeated falls Status: Acute DS: Summary Hospital Course Hospital Course: In the ED: Vital signs were stable on arrival. Labs or significant for a hemoglobin of 10.2, sodium 131, chloride 89, carbon dioxide 35, BUN 30, creatinine 4.81, troponin 0.050, proBNP greater than 30,000. All leads labs are stable compared to his baseline. ABG showed a pH of 7.434, pCO2 49.5, HC03 32.4. Urinalysis was positive for 4+ protein, 3+ blood, 3+ leukocyte esterase, 6 to 10 RBC, greater than 100 WBC. No bacteria were seen on microscopy. Brain CT and cervical spine CT were without acute findings but did show chronic findings. EKG showed known significant changes. Chest x-ray showed possible left lower lobe pneumonia. He was given ceftriaxone 1 g for possible urinary tract infection. Urine and blood cultures no growth. HD T-Th-Sat. Nephrology followed. Patient to wear a Bipap instead of a CPAP. Patient A&Ox3 at discharge. Baclofen and Cyclobenzaprine discontinued. Patient in Afib and started on Eliquis. Patient treated with antibiotics for pneumonia. Status at Discharge Functional status at discharge: wheelchair bound Overall status at discharge: patient is progressing back to baseline Time Spent with Patient Time attestation: Total time spent providing and/or coordinating discharge services: Time spent: Greater than 30 minutes Exam Const: General: no acute distress and uncomfortable Resp: Effort & Inspection: normal respiratory effort Auscultation: diminished lung sounds Cardio: Rate: regular rate Rhythm: regular rhythm GI: GI Palp: Yes Soft to palpation Auscultation: normal bowel sounds Skin: Other: Warm and dry. Scattered bruises. Dressing intact to right heel ulcer. Extrem: General: no pedal edema Psych: Mental Status: mental status grossly normal Affect: normal affect DS: Data Data Completed and Pending Labs on day of discharge: Labs from last 24 hours 03/27/25 03/27/25 03/27/25 11:30 07:24 06:15 WBC 6.1 RBC 3.63 L Hgb 9.6 L Hct 32.9 L MCV 90.6 MCH 26.4 MCHC 29.2 L RDW 19.1 H Plt Count 243 MPV 11.7 H Immature Gran % (Auto) 0.7 H Neut % (Auto) 68.2 Lymph % (Auto) 14.0 L [place] % (Auto) 13.0 H Eos % (Auto) 3.1 Baso % (Auto) 1.0 Lymph # (Auto) 0.85 L [place] # (Auto) 0.8 H Eos # (Auto) 0.2 Baso # (Auto) 0.1 Abs Immat Gran (auto) 0.04 H Absolute Neuts (auto) 4.1 Absolute Nucleated RBC 0.020 H Band Neutrophils % Not Reportable Nucleated RBC % 0.3 H Platelet Estimate Adequate Hypochromasia 1+ Anisocytosis 1+ Schistocytes None seen Sodium 134 L Potassium 4.6 Chloride 94 L Carbon Dioxide 32 H Anion Gap 8 BUN 46 H Creatinine 3.77 H Estim Creat Clear Calc 16 Estimated GFR 16 L Glucose 101 POC Capillary Glucose 88 94 Calcium 9.8 Phosphorus 2.8 Magnesium 2.2 Total Bilirubin 0.2 AST 13 L ALT 8 Alkaline Phosphatase 54 Total Protein 5.8 L Albumin 3.4 L Nasal MRSA (PCR) 03/26/25 03/26/25 03/26/25 19:55 16:36 13:29 WBC RBC Hgb Hct MCV MCH MCHC RDW Plt Count MPV Immature Gran % (Auto) Neut % (Auto) Lymph % (Auto) [place] % (Auto) Eos % (Auto) Baso % (Auto) Lymph # (Auto) [place] # (Auto) Eos # (Auto) Baso # (Auto) Abs Immat Gran (auto) Absolute Neuts (auto) Absolute Nucleated RBC Band Neutrophils % Nucleated RBC % Platelet Estimate Hypochromasia Anisocytosis Schistocytes Sodium Potassium Chloride Carbon Dioxide Anion Gap BUN Creatinine Estim Creat Clear Calc Estimated GFR Glucose POC Capillary Glucose 122 H 158 H Calcium Phosphorus Magnesium Total Bilirubin AST ALT Alkaline Phosphatase Total Protein Albumin Nasal MRSA (PCR) Not detected Discharge Plan Discharge Attending physician on discharge: Juan Carlos Gooden Consulting providers: Brett Tang Discharging Clinician: Kalpana Pereira Anticipated Discharge Date/Time: 03/27/25 15:45 Patient Disposition: NH Senior Care/Asst Living Activity: may shower and as tolerated Diet: renal Discharge Instructions: * Wear Bipap at night or while taking naps. Settings: machine rate 14 (bpm), inspiratory pressure 16 (cm H20), and expiratory pressure 8, 1 liter oxygen flow rate, and respiratory rate 16. * Complete all doses of antibiotics. * Placed on Eliquis do to atrial fibrillation. Report to provider any bleeding or increased bruising. * Elevate right heel off of bed with pillows. Betadine swab daily. Keep area clean and dry. Monitor for infection. Thank you for entrusting [facility] with your healthcare! Patient Instructions: Antibiotic Form, Apixaban (By mouth), A-fib (Atrial Fibrillation) (DC), Sleep Apnea (GEN), COPD (Chronic Obstructive Pulmonary Disease) (DC), Pneumonia (DC), BiPAP (GEN) Patient Language: German Stand Alone Forms: General Discharge Information Follow-up/Referrals: Radha Carrion MD [Primary Care Provider] - 1 Week Discharge Medications: New amoxicillin-pot clavulanate [Augmentin] 500-125 mg Tablet 1 tablet PO QHS Qty: 3 0RF Eliquis 2.5 mg Tablet 2.5 mg PO Q12HR Qty: 60 0RF doxycycline hyclate 100 mg Tablet 100 mg PO Q12HR Qty: 5 0RF Continued carvedilol 25 mg tablet 25 mg PO BID aspirin 81 mg tablet,delayed release (DR/EC) 81 mg PO DAILY insulin lispro 100 unit/mL insulin pen 4 unit subcut .TIDAC loratadine [Claritin] 10 mg tablet 10 mg PO DAILY insulin glargine [Lantus Solostar U-100 Insulin] 100 unit/mL (3 mL) insulin pen 6 unit subcut HS atorvastatin 20 mg tablet 20 mg PO HS tamsulosin 0.4 mg Capsule 0.4 mg PO QHS Qty: 30 0RF furosemide 80 mg Tablet 80 mg PO BID Qty: 60 0RF finasteride [Proscar] 5 mg Tablet 5 mg PO QAM Qty: 30 0RF bisacodyl [Laxative (bisacodyl)] 10 mg suppository 10 mg RECTAL DAILY PRN (Reason: constipation) Rx Instructions: If no results from the MOM. magnesium citrate [Citroma] Solution 296 ml PO .AM PRN (Reason: constipation) Rx Instructions: If no results after enema. Fleet Enema 19-7 gram/118 mL enema 118 ml RECTAL DAILY PRN (Reason: constipation) Rx Instructions: If no results 1 day after the bisacodyl suppository was administered. gabapentin 100 mg capsule 100 mg PO TID liraglutide 0.6 mg/0.1 mL (18 mg/3 mL) pen injector 1.2 mg subcut HS Rx Instructions: To start on 02/20/25. magnesium hydroxide [Milk of Magnesia] 400 mg/5 mL suspension 30 ml PO HS PRN (Reason: constipation) Rx Instructions: If no bowel movement in 3 days. vitamin B complex Capsule 1 cap PO DAILY amlodipine 10 mg tablet 10 mg PO DAILY cinacalcet 90 mg PO DAILY acetaminophen 325 mg Tablet 650 mg PO Q4H PRN (Reason: Mild Pain (1-3) Or Fever) Qty: 60 0RF melatonin 3 mg tablet 3 mg PO HS acetaminophen 325 mg tablet 650 mg PO TID tramadol 50 mg tablet 50 mg PO BID Incruse Ellipta 62.5 mcg/actuation blister with device 1 inh inhalation DAILY Combivent Respimat 20-100 mcg/actuation mist 1 puff inhalation Q6H PRN (Reason: shortness of breath or wheezing) loperamide 2 mg capsule 2 mg PO Q4H PRN (Reason: loose stool) Rx Instructions: administer after each loose stool until symptoms controlled; do not exceed 8 mg per 24 hrs sevelamer carbonate 0.8 gram Powder In Packet 0.8 g PO TIDWM levalbuterol HCl 1.25 mg/3 mL Solution For Nebulization 0.63 mg inhalation Q6HRT Qty: 30 0RF sevelamer carbonate 0.8 gram Powder In Packet 0.8 g PO TIDWM Qty: 60 0RF levalbuterol HCl 0.63 mg/3 mL solution for nebulization 0.63 mg inhalation Q6H PRN (Reason: shortness of breath or wheezing) Qty: 90 0RF pentoxifylline 400 mg tablet extended release 400 mg PO QPM Rx Instructions: must administer with a meal/food Discontinued acetaminophen-codeine 300-30 mg tablet 1 tablet PO Q6H PRN (Reason: pain, severe) Allergy Relief (loratadine) 10 mg capsule 10 mg PO DAILY PRN (Reason: itching) baclofen 5 mg tablet 5 mg PO TID losartan 100 mg tablet 100 mg PO DAILY PRN (Reason: blood pressure) Rx Instructions: give 100mg as needed for HTN give if SP>160 or DP >90 cyclobenzaprine 10 mg tablet 10 mg PO Q8H PRN (Reason: muscle spasm) Date of admission: 03/24/25 09:26 Primary Care Provider: Radha Carrion Admitting Provider: Florentino Ennis Attending physician on admission: Florentino Ennis Condition: Improved Hospitalist MIPS Heart Failure (Exclusion) Patient has history of Heart Transplant or Left Ventricular Assistive Device?: No IF YES, STOP HERE Heart Failure (Qualifier) Patient has current or prior documentation of LVEF less than or equal to 40%, or mod/servere depressed LVSF?: No IF NO, STOP HERE
[2025-03-27 17:23] LABS: Glucose Point of Care 114 mg/dl (65-105)
[2025-03-27] MEDS: PENTOXIFYLLINE 400 MG TABCR PO (17:24)
== END 2025-03-27 18:38 | DRG 193 ==
LOC: ANHED 03-23 01:38 → ANH3MEDSUR 03-23 02:15
PROVIDERS: Physician Assistant; Admitting Provider Internal Medicine; Emergency Provider Emergency Medicine; PCP Family Medicine; Visit Provider Nurse Practitioner Family
DX: J18.9 Pneumonia, unspecified organism (principal); N18.6 End stage renal disease; I13.2 Hypertensive heart and chronic kidney disease with heart failure and with stage 5 chronic kidney disease, or end stage renal disease; I50.32 Chronic diastolic (congestive) heart failure; I48.20 Chronic atrial fibrillation, unspecified; J44.0 Chronic obstructive pulmonary disease with (acute) lower respiratory infection; L97.421 Non-pressure chronic ulcer of left heel and midfoot limited to breakdown of skin; J96.12 Chronic respiratory failure with hypercapnia; D63.1 Anemia in chronic kidney disease; E11.621 Type 2 diabetes mellitus with foot ulcer; E11.22 Type 2 diabetes mellitus with diabetic chronic kidney disease; I25.10 Atherosclerotic heart disease of native coronary artery without angina pectoris; E11.42 Type 2 diabetes mellitus with diabetic polyneuropathy; E11.51 Type 2 diabetes mellitus with diabetic peripheral angiopathy without gangrene; E83.52 Hypercalcemia; E87.70 Fluid overload, unspecified; E55.9 Vitamin D deficiency, unspecified; G47.33 Obstructive sleep apnea (adult) (pediatric); N40.0 Benign prostatic hyperplasia without lower urinary tract symptoms; R79.89 Other specified abnormal findings of blood chemistry; E78.5 Hyperlipidemia, unspecified; I34.0 Nonrheumatic mitral (valve) insufficiency; R29.6 Repeated falls; Z20.822 Contact with and (suspected) exposure to COVID-19; Z79.4 Long term (current) use of insulin; Z79.51 Long term (current) use of inhaled steroids; Z79.82 Long term (current) use of aspirin; Z79.899 Other long term (current) drug therapy; Z87.891 Personal history of nicotine dependence; Z91.199 Patient's noncompliance with other medical treatment and regimen due to unspecified reason; Z95.0 Presence of cardiac pacemaker; Z95.1 Presence of aortocoronary bypass graft; Z96.1 Presence of intraocular lens; Z98.42 Cataract extraction status, left eye; Z98.41 Cataract extraction status, right eye; Z98.62 Peripheral vascular angioplasty status; Z99.2 Dependence on renal dialysis; Z99.81 Dependence on supplemental oxygen; Z99.3 Dependence on wheelchair
CPT/HCPCS: 36415; 36600; 70450; 71045; 72125; 80048; 80053; 81001; 82140; 82375; 82607; 82805; 82948; 83050; 83605; 83690; 83735; 83880; 84100; 84443; 84484; 85018; 85025; 85027; 85610; 85730; 87086; 87637; 87641; 93005; 94640; 96365; 96372; 97110; 97162; 97166; 97530; 97535; 99212; 99285; A9270; G0257; G0378; G0463; J0696; J1644; J1815; J7030; Q5105

== ENCOUNTER 2025-04-09 19:26 | Inpatient (IN) | payer MEDICARE, OTHER, SELFPAY ==
--- NOTE | ~2025-04-09 | XR_ITS ---
EXAMINATION: XR chest 1V portable DATE: 04/11/2025 07:45 INDICATION: Shortness of breath TECHNIQUE: frontal view of the chest was obtained. COMPARISON: Chest radiograph dated 03/22/2025 FINDINGS: Mild streaky opacities at the left mid and lower lung zones at the right lung base. No pleural effusi on or pneumothorax. Heart size is normal. Median sternotomy wires, ostial markers and mediastinal yepez rgical clips consistent with prior coronary artery bypass grafting. Left subclavian vascular stent. L eft pectoral implantable engine monitor. IMPRESSION: 1. Mild streaky opacities at the left mid to lower lung zones and at the right lung base and favor at electasis over pneumonia. Reviewed, dictated and finalized at location A. IMPRESSION: 1. Mild streaky opacities at the left mid to lower lung zones and at the right lung base and favor atelectasis over pneumonia.
--- OUTSIDE RECORDS SUMMARY | 2025-04-09 19:28 | XMS_ITS | Encounter Summary ---
Author Organization [facility] Health Address [address] [place] [address] Care Team Providers Care Mushroom Farmer Name Role Phone Mariza Carrion MD Primary Care Provider Encounter Details Date Type Department Care Team (Late Contact Info) Description 06/03/2018 [facility] Outpatient Visit [facility] [address] [place] [address] [place] [address] [facility] [address] [place] [id number] Social History Tobacco Use Types Packs/Day [...] Department Care Team (Late Contact Info) Description 10/02/2025 1:00 PM SURGICAL CONSULTANT Appointment [facility] Health Vascular Services [address] [facility], [address] [place] [address] [place] [address] [address] documented as of this encounter Visit Diagnoses Not on filedocumented in this encounter Care Teams Mushroom Farmer Relationship Specialty Start Date End Date Mariza Carrion MD [address] [place] [address] PCP - General Family Medicine 08/26/18 documented as of this encounter
--- OUTSIDE RECORDS SUMMARY | 2025-04-09 19:28 | XMS_ITS ---
Author Organization [facility] Address [address] [place] [id number] Care Team Providers Care Supervisor Sewer System Name Role Phone Efren Hoyos MD Unavailable Dank Hicks MD Unavailable [phone] Mariza Carrion MD Primary Care Provider Dialysis [...] POCT HEMOGLOBIN A1C Routine 11/24/2024 10:01 AM SIGNAL PERSON Type 2 diabetes mellitus with hyperglycemia, with long-term current use of insulin (CMS/HCC) EGFR Routine 10/25/2024 5:48 AM SIGNAL PERSON HEPATITIS PANEL, ACUTE Routine 10/23/2024 2:45 PM SIGNAL PERSON HM DIABETES EYE EXAM Routine 08/13/2024 9:40 AM CDT ALBUMIN CREATININE RATIO, URINE Routine 03/10/2024 8:46 AM CDT Type 2 diabetes mellitus with hyperglycemia, with long-term current use of insulin (CMS/HCC) LIPID PANEL Routine 03/03/2024 9:29 AM CDT Type 2 diabetes mellitus with hyperglycemia, with long-term current use of insulin ([facility]) Hyperlipidemia associated with type 2 diabetes mellitus ([facility]) CT ABDOMEN PELVIS WO CONTRAST Schedule Routine, Read Routine (OP Routine) 12/05/2021 11:53 AM SIGNAL PERSON End stage renal disease (HCC) from Last [...] hyperglycemia, with long-term current use of insulin ([facility]) Use to test glucose 5 times daily 450 each 2 04/03/20 18 Active lancets (freestyle) 28 gauge miscIndications:T ype 2 diabetes mellitus with hyperglycemia, with long-term current use of insulin ([facility]) Use to test glucose 5 [...] hyperglycemia, with long-term current use of insulin ([facility]) Change sensor every 14 days [...] 12/09/2019 Assessment & Plan (09/03/2023 9:28 AM SIGNAL PERSON): Chronic problem. HD [facility] [place]: //Saturdays. LUE fistula. Assessment & Plan (03/05/2023 9:59 AM CDT): Chronic problem. HD [facility] [place]: //Saturdays. LUE fistula. Hyperlipidemia associated with type 2 diabetes fouzia victoria 05/22/2019 Assessment & Plan (11/24/2024 10:10 AM SIGNAL PERSON): Chronic problem. Controlled on current Atorvastatin 20mg. Last lipid panel: 03/03/24 LDL=33, TG=75. Assessment & Plan (03/03/2024 8:45 AM CDT): Chronic problem. Controlled on current Atorvastatin 20mg. Last lipid panel: 03/05/23 LDL=57, IN=545. Will update labs today. Does not mychart. Verified phone #/address to contact re: results. Assessment & Plan (09/03/2023 9:28 AM SIGNAL PERSON): Chronic problem. Controlled on current Atorvastatin 20mg. Last lipid panel: 03/05/23 LDL=57, JQ=773. Assessment & Plan (03/05/2023 9:53 AM CDT): Chronic problem. Controlled on current Atorvastatin 20mg. Last lipid panel: 12/05/21 LDL=36, VG=574. Will update labs today. Verified phone #/address to contact re: results. Assessment & Plan (11/02/2022 2:47 PM SIGNAL PERSON): Chronic, well controlled Low fat Low cholesterol [...] Lipitor Assessment & Plan (09/07/2020 2:26 PM SIGNAL PERSON): Goal of treatment , LDL cholesterol less [...] panel Assessment & Plan (12/09/2019 2:03 PM SIGNAL PERSON): Very high TG Add Vascepa Assessment & [...] statin therapy Coronary artery disease invo lving [place] coronary artery of [place] heart without angina pectoris 10/04/2017 Hx of CABG 10/04/2017 Class 2 severe obesity due t o excess calories with serious comorbidity and body mass index (BMI) of 38.0 to 38.9 in adult 05/22/2017 Assessment & Plan (10/24/2018 12:58 PM SIGNAL PERSON): Making progress with diet efforts. Continue Assessment & Plan (02/08/2018 11:01 AM CDT): Importance of following diet and exercising discussed. Hypertension associated with diabetes 05/22/2017 Assessment & Plan (11/24/2024 10:11 AM SIGNAL PERSON): Chronic problem. Controlled on current losartan 100mg daily, amlodipine 10mg daily Assessment & Plan (03/03/2024 8:45 AM CDT): Chronic problem. BP elevated upon arrival. Controlled on current Carvedilol 25mg bid, losartan 100mg daily. No changes at this time. Will update labs today. Does not mychart. Verified phone #/address to contact re: results. Assessment & Plan (09/03/2023 9:28 AM SIGNAL PERSON): Chronic problem. BP elevated upon arrival. Controlled [...] renal Assessment & Plan (10/24/2018 12:57 PM SIGNAL PERSON): Controlled. Continue current medication plan and follow up with cardiology Assessment & Plan (06/18/2018 2:30 PM CDT): BP controlled on current medication plan. Continue follow up with nephrology Assessment & Plan (02/08/2018 11:00 AM CDT): Continue same medication Assessment & Plan (12/11/2017 10:24 AM SIGNAL PERSON): Goal blood pressure is less than 140/85 [...] mellitus Assessment & Plan (11/24/2024 10:16 AM SIGNAL PERSON): Chronic problem, controlled on current regimen. A1c [...] daily for skin breakdown and infection (sees senior technical support engineer regularly). Assessment & Plan (03/03/2024 9:19 AM [...] daily for skin breakdown and infection (sees senior technical support engineer regularly). Assessment & Plan (09/03/2023 9:27 AM SIGNAL PERSON): Chronic problem, controlled on current regimen. A1c [...] daily for skin breakdown and infection (sees senior technical support engineer regularly). Assessment & Plan (03/05/2023 10:13 AM CDT): Chronic problem, controlled on current regimen. Current medications: Trulicity 1.5mg weekly Lantus 6 units every morning Humalog 4 units before meals For sugars over 160: take 6 units For sugars over 200: take 8 units Seen by [facility] every 4-5 mos; letter sent to get [...] daily for skin breakdown and infection (sees senior technical support engineer regularly). Will update labs today. Verified phone #/address to contact re: results. Assessment & Plan (11/02/2022 2:43 PM SIGNAL PERSON): Well controlled, with risk of hypoglycemia Insuli [...] Ross Assessment & Plan (09/07/2020 2:26 PM SIGNAL PERSON): Hba1c was Lab Results Component Value Date [...] Trulicity. Assessment & Plan (12/09/2019 2:03 PM SIGNAL PERSON): Your Hba1c today was: Lab Results Component [...] hypoglycemia. Assessment & Plan (10/24/2018 1:00 PM SIGNAL PERSON): Stable BG pattern 100-140 reported since last adjustment to plan. No change today. BG goals reviewed. Advised to lower Lantus by 2 units if FBG are < 100 x 2 days/wk. For planned activity, reduce Humalog dose by 1/2 at preceding meal. Assessment & Plan (09/19/2018 11:11 AM SIGNAL PERSON): Your Hba1c today was: Lab Results Component [...] time. Assessment & Plan (12/11/2017 10:47 AM SIGNAL PERSON): Hba1c was .5.4 Today, 1800 calorie, consistent [...] Lantus by 5 more unit. Stay on [facility] Assessment & Plan (05/22/2017 11:37 AM CDT): [...] drink = 0.6 oz pur e alcohol) [facility] Utilities Answer Date Recorded In the past 12 months has [employer], gas, oil, or water CURRENT threatened to shut off services in your [...] week 10/23/2024 How often do you attend [facility] or voodoo services? Never 10/23/2024 Do you belong to any clubs o r organizations such as rastafari groups, unions, fraternal or athletic groups, or [...] time in the past 12 m [facility], were you homeless or living in a senior living (including now)? No 10/23/2024 Personal Safety Answer Date Recorded Have you ever been in or are you currently in a harmful physical or emotional relationship or is someone making you feel afraid or unsafe? Denies 10/22/2024 Sex and Gender Information Value Date Recorded Sex Assigned at Not on file Legal Sex Male 7:27 PM SIGNAL PERSON Gender Identity Not on file Sexual Orientation Not on file Last Filed Vital Signs Vital Sign Reading Time Taken Comments Blood Pressure 102/58 11/24/2024 9:58 AM SIGNAL PERSON Pulse 75 11/24/2024 9:58 AM SIGNAL PERSON Temperature 36.3 C (97.3 F) 10/25/2024 2:15 PM SIGNAL PERSON Respiratory Rate 20 11/24/2024 9:58 AM SIGNAL PERSON Oxygen Saturation 100% 10/25/2024 1:15 PM SIGNAL PERSON Inhaled Oxygen Concentration - - Weight 91.3 kg (201 lb 4.5 oz) 10/22/2024 8:29 P M SIGNAL PERSON Height 170.2 cm (5' 7.01) 11/24/2024 9:58 AM CS T Body Mass Index 31.52 10/22/2024 8:29 PM SIGNAL PERSON Results * DEVICE CHECK - IN OFFICE [...] * POCT hemoglobin A1c (11/24/2024 10:01 AM SIGNAL PERSON) Hemoglobin A1C, POC 4.9 4.0 - 5.6 % Blood 11/24/2024 10:0 1 AM SIGNAL PERSON us Bertha Pinto NP POINT OF CARE TEST ORDERA BLES Final Result * (ABNORMAL) eGFR (10/25/2024 5:48 AM SIGNAL PERSON) eGFR 9(L) >=60 mL/min/1. 73 m2 Comment: [...] last reviewed 2021. Blood 10/25/2024 5:48 AM SIGNAL PERSON 10/25/2024 6:03 AM SIGNAL PERSON Raisa Scherer NP LAB BLOOD ORDERABLES Jeaneth l Result [facility] [id number] Department [place] [address] * Hepatitis panel, acute Blood (10/23/2024 2:45 PM SIGNAL PERSON) Hep A IgM Nonreactive Nonreactive Comment: Interpretive [...] [facility] Blood 10/23/2024 2:45 PM SIGNAL PERSON 10/23/2024 2:46 PM SIGNAL PERSON Sherrill Christianson MD LAB MICROBIOLOGY - GENERAL ORDERABLES Final Result Performing Organization Address City/[facility] [employer] Phone Number [facility] [id number] [place] [address] * (ABNORMAL) DIABETES EYE EXAM (08/13/2024 9:40 AM CDT) Historical Provider [facility] Edited Result - Final * [...] ORDERABLES Jeaneth l Result Performing Organization Address [facility] [employer] Phone Number [facility] [address] Department [place] [address] * (ABNORMAL) Lipid panel (03/03/2024 9:29 AM [...] LAB BLOOD ORDERABLES Jeaneth l Result [facility] [address] [place] [address] * CT Abdomen Pelvis WO Contrast (12/05/2021 11:53 AM SIGNAL PERSON) Anatomical Region Laterality Modality Body N/A Computed Tomogra phy 12/05/2021 12:0 4 PM SIGNAL PERSON Impressions 12/05/2021 12:04 PM SIGNAL PERSON Bone windows show no suspicious lytic or blastic lesions. IMPRESSION: 1. 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 2. 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 Electronically signed by: Ryan Cameron M.D. Narrative 12/05/2021 12:04 PM SIGNAL PERSON EXAMINATION: Computed tomography of the abdomen/pelvis without [...] adeniform shape. There is atrophy of both [place] kidneys. Adjacent fat stranding is likely related [...] adeniform shape. There is atrophy of both [place] kidneys. Adjacent fat stranding is likely related [...]
--- OUTSIDE RECORDS SUMMARY | 2025-04-09 19:30 | XMS_ITS | Clinical Summary ---
Author Organization [facility] Facility Address [address] [address] Care Team Providers Care Colliery Clerk Name Role Phone Murali Dawkins MD Primary [...] Insurance Medicare [facility] Care Teams Colliery Clerk Relationship Specialty Start Date End Date Murali Dawkins MD [address] [place] [address] PCP - General Family Medicine 10/28/24
--- OUTSIDE RECORDS SUMMARY | 2025-04-09 19:30 | XMS_ITS | Clinical Summary ---
Author Organization [facility] Address [address] [place] [phone] Phone Care Team Providers Care Mussel Opener Name Role Phone Mariza Carrion MD Primary [...] dir 0 11/12/2017 Active ergocalciferol (VITAMIN D-2) 29631 units capsule Take 1 capsule (50,000 Units total) by mouth 2 (two) times a week. 28 capsule 3 03/27/2019 Active hydrALAZINE (APRESOLINE) 100 MG tablet TAKE 1 TABLET TWICE A DAY 180 tablet 4 04/30/2019 Active aspirin 81 MG chewable tablet one p.o. qd 05/23/2012 A ctive ergocalciferol (VITAMIN D-2) 84570 units capsule one p.o. capsule once a [...] (Season Ended) 2025 Insurance MEDICARE Care Teams Mussel Opener Relationship Specialty Start Date End Date Mariza Carrion MD [address] [place] [address] PCP - General Internal Medicine 01/06/19
--- OUTSIDE RECORDS SUMMARY | 2025-04-09 19:30 | XMS_ITS | Referral Summary ---
Author Organization [facility] Address [address] [place] [id number] Care Team Providers Care Recording Studio Intern Name Role Phone Efren Hoyos MD Unavailable Dank Hicks MD Unavailable [phone] Mariza Carrion MD Primary Care Provider Encounters Date Type Department Care Team Description 01/21/2025 9:30 AM CDT Ancillary Procedure [facility] Cardiology [address] [place] [phone] Cardiac pacemaker in situ; Asystole (HCC); Syncope and collapse; Symptomatic bradycardia 01/19/2025 Telephone [facility] [address] [place] [address] [place] [phone] Dank Hicks MD from Last 3 Months Allergies No [...] hyperglycemia, with long-term current use of insulin ([facility]) Use to test glucose 5 times daily 450 each 2 04/03/20 18 Active lancets (freestyle) 28 gauge miscIndications:T ype 2 diabetes mellitus with hyperglycemia, with long-term current use of insulin ([facility]) Use to test glucose 5 [...] hyperglycemia, with long-term current use of insulin ([facility]) Change sensor every 14 days [...] hyperglycemia, with long-term current use of insulin ([facility]) Inject 0.5ML(1.5MG total) under the [...] hyperglycemia, with long-term current use of insulin ([facility]) Use to inject insulin 4x/day [...] 12/09/2019 Assessment & Plan (09/03/2023 9:28 AM TAPE TRANSFERRER): Chronic problem. HD [facility] [place]: //Saturdays. LUE fistula. Assessment & Plan (03/05/2023 9:59 AM CDT): Chronic problem. HD [facility] in [place]: //Saturdays. LUE fistula. Hyperlipidemia associated with type 2 diabetes fouzia victoria 05/22/2019 Assessment & Plan (11/24/2024 10:10 AM TAPE TRANSFERRER): Chronic problem. Controlled on current Atorvastatin 20mg. Last lipid panel: 03/03/24 LDL=33, TG=75. Assessment & Plan (03/03/2024 8:45 AM CDT): Chronic problem. Controlled on current Atorvastatin 20mg. Last lipid panel: 03/05/23 LDL=57, KJ=231. Will update labs today. Does not mychart. Verified phone #/address to contact re: results. Assessment & Plan (09/03/2023 9:28 AM TAPE TRANSFERRER): Chronic problem. Controlled on current Atorvastatin 20mg. Last lipid panel: 03/05/23 LDL=57, EL=416. Assessment & Plan (03/05/2023 9:53 AM CDT): Chronic problem. Controlled on current Atorvastatin 20mg. Last lipid panel: 12/05/21 LDL=36, KT=232. Will update labs today. Verified phone #/address to contact re: results. Assessment & Plan (11/02/2022 2:47 PM TAPE TRANSFERRER): Chronic, well controlled Low fat Low cholesterol [...] Lipitor Assessment & Plan (09/07/2020 2:26 PM TAPE TRANSFERRER): Goal of treatment , LDL cholesterol less [...] panel Assessment & Plan (12/09/2019 2:03 PM TAPE TRANSFERRER): Very high TG Add Vascepa Assessment & [...] statin therapy Coronary artery disease invo lving [place] coronary artery of [place] heart without angina pectoris 10/04/2017 Hx of CABG 10/04/2017 Class 2 severe obesity due t o excess calories with serious comorbidity and body mass index (BMI) of 38.0 to 38.9 in adult 05/22/2017 Assessment & Plan (10/24/2018 12:58 PM TAPE TRANSFERRER): Making progress with diet efforts. Continue Assessment & Plan (02/08/2018 11:01 AM CDT): Importance of following diet and exercising discussed. Hypertension associated with diabetes 05/22/2017 Assessment & Plan (11/24/2024 10:11 AM TAPE TRANSFERRER): Chronic problem. Controlled on current losartan 100mg daily, amlodipine 10mg daily Assessment & Plan (03/03/2024 8:45 AM CDT): Chronic problem. BP elevated upon arrival. Controlled on current Carvedilol 25mg bid, losartan 100mg daily. No changes at this time. Will update labs today. Does not mychart. Verified phone #/address to contact re: results. Assessment & Plan (09/03/2023 9:28 AM TAPE TRANSFERRER): Chronic problem. BP elevated upon arrival. Controlled [...] renal Assessment & Plan (10/24/2018 12:57 PM TAPE TRANSFERRER): Controlled. Continue current medication plan and follow up with cardiology Assessment & Plan (06/18/2018 2:30 PM CDT): BP controlled on current medication plan. Continue follow up with nephrology Assessment & Plan (02/08/2018 11:00 AM CDT): Continue same medication Assessment & Plan (12/11/2017 10:24 AM TAPE TRANSFERRER): Goal blood pressure is less than 140/85 [...] mellitus Assessment & Plan (11/24/2024 10:16 AM TAPE TRANSFERRER): Chronic problem, controlled on current regimen. A1c [...] daily for skin breakdown and infection (sees keno writer / runner regularly). Assessment & Plan (03/03/2024 9:19 AM [...] daily for skin breakdown and infection (sees keno writer / runner regularly). Assessment & Plan (09/03/2023 9:27 AM TAPE TRANSFERRER): Chronic problem, controlled on current regimen. A1c [...] daily for skin breakdown and infection (sees keno writer / runner regularly). Assessment & Plan (03/05/2023 10:13 AM CDT): Chronic problem, controlled on current regimen. Current medications: Trulicity 1.5mg weekly Lantus 6 units every morning Humalog 4 units before meals For sugars over 160: take 6 units For sugars over 200: take 8 units Seen by Retina Devol every 4-5 mos; letter sent to get [...] daily for skin breakdown and infection (sees keno writer / runner regularly). Will update labs today. Verified phone #/address to contact re: results. Assessment & Plan (11/02/2022 2:43 PM TAPE TRANSFERRER): Well controlled, with risk of hypoglycemia Insuli [...] Ross Assessment & Plan (09/07/2020 2:26 PM TAPE TRANSFERRER): Hba1c was Lab Results Component Value Date [...] Trulicity. Assessment & Plan (12/09/2019 2:03 PM TAPE TRANSFERRER): Your Hba1c today was: Lab Results Component Value Date HGBA1C 9.3 12/09/2019 meaning a 3 month average sugar of : 224 Your goal hba1c is under 7.0 to prevent superintendent container terminal diabetes complications ( eye , kidney [...] hypoglycemia. Assessment & Plan (10/24/2018 1:00 PM TAPE TRANSFERRER): Stable BG pattern 100-140 reported since last adjustment to plan. No change today. BG goals reviewed. Advised to lower Lantus by 2 units if FBG are < 100 x 2 days/wk. For planned activity, reduce Humalog dose by 1/2 at preceding meal. Assessment & Plan (09/19/2018 11:11 AM TAPE TRANSFERRER): Your Hba1c today was: Lab Results Component Value Date HGBA1C 5.1 09/19/2018 meaning a 3 month average sugar of : 81 Your goal hba1c is under 7.0 to prevent usp diabetes complications ( eye , kidney and [...] time. Assessment & Plan (12/11/2017 10:47 AM TAPE TRANSFERRER): Hba1c was .5.4 Today, 1800 calorie, consistent [...] Resolved Date Controlled type 2 diabetes m ellitus, without long-term current use of insulin 10/23/2024 025 Dyslipidemia associated with type 2 diabetes mellitus 10/23/2024 11/24/2024 ESRD on dialysis 05/22/2019 03/17/2025 Hypoglycemia 09/19/2018 05/22/2019 Assessment & Plan (09/19/2018 11:20 AM TAPE TRANSFERRER): Prevention and treatment of hypoglycemia were discussed [...] therapy Assessment & Plan (10/24/2018 12:57 PM TAPE TRANSFERRER): Check lipid panel Assessment & Plan (06/18/2018 2:31 PM CDT): Continue statin therapy Assessment & Plan (02/08/2018 11:00 AM CDT): Continue atorvastatin Assessment & Plan (12/11/2017 10:45 AM TAPE TRANSFERRER): Goal of treatment , LDL cholesterol less [...] e alcohol) [facility] Answer Date Recorded In the past 12 months has [employer], gas, oil, or water [employer] threatened to shut off services in [...] often do you attend chur ch or anglican services? Never 10/23/2024 Do you belong to any clubs o r organizations such as methodist groups, unions, fraternal or athletic groups, or [...] time in the past 12 m [facility], were you homeless or living in a correction (including now)? No 10/23/2024 Personal Safety Answer Date Recorded Have you ever been in or are you currently in a harmful physical or emotional relationship or is someone making you feel afraid or unsafe? Denies 10/22/2024 Sex and Gender Information Value Date Recorded Sex Assigned at Not on file Legal Sex Male 7:27 PM TAPE TRANSFERRER Gender Identity Not on file Sexual Orientation Not on file Last Filed Vital Signs Vital Sign Reading Time Taken Comments Blood Pressure 102/58 11/24/2024 9:58 AM TAPE TRANSFERRER Pulse 75 11/24/2024 9:58 AM TAPE TRANSFERRER Temperature 36.3 C (97.3 F) 10/25/2024 2:15 PM TAPE TRANSFERRER Respiratory Rate 20 11/24/2024 9:58 AM TAPE TRANSFERRER Oxygen Saturation 100% 10/25/2024 1:15 PM TAPE TRANSFERRER Inhaled Oxygen Concentration - - Weight 91.3 kg (201 lb 4.5 oz) 10/22/2024 8:29 P M TAPE TRANSFERRER Height 170.2 cm (5' 7.01) 11/24/2024 9:58 AM CS T Body Mass Index 31.52 10/22/2024 8:29 PM TAPE TRANSFERRER Plan of Treatment Not on file Medical Devices Implanted Type Area Cake Inspector Device Identifier Shelf Expiration Date Model / Serial / Lot Med[employer]onic Inc Micra 2 Av Synchronous Leadless Ventricular Pacemaker [id number] - [id number] - [id number] Implanted:Qty: 1 on 10/24/2024 by Darien Jamil Jr., MD at [facility] [employer] 02/16/2026 [id number] / [id number] / Procedures Procedure Name Priority Date/Time Associated Diagnosis Comments DEVICE CHECK - IN OFFICE Routine 01/21/2025 9:26 AM CDT Cardiac pacemaker in situ Asystole (HCC) Syncope and collapse Symptomatic bradycardia POCT HEMOGLOBIN A1C Routine 11/24/2024 10:01 AM TAPE TRANSFERRER Type 2 diabetes mellitus with hyperglycemia, with long-term current use of insulin (CMS/HCC) EGFR Routine 10/25/2024 5:48 AM TAPE TRANSFERRER HEPATITIS PANEL, ACUTE Routine 10/23/2024 2:45 PM TAPE TRANSFERRER HM DIABETES EYE EXAM Routine 08/13/2024 9:40 [...] Read Routine (OP Routine) 12/05/2021 11:53 AM TAPE TRANSFERRER End stage renal disease (HCC) from Last [...] * POCT hemoglobin A1c (11/24/2024 10:01 AM TAPE TRANSFERRER) Hemoglobin A1C, POC 4.9 4.0 - 5.6 % Blood 11/24/2024 10:0 1 AM TAPE TRANSFERRER Bertha Pinto NP POINT OF CARE TEST ORDERA BLES Final Result * (ABNORMAL) eGFR (10/25/2024 5:48 AM TAPE TRANSFERRER) eGFR 9(L) >=60 mL/min/1. 73 m2 Comment: [...] last reviewed 2021. Blood 10/25/2024 5:48 AM TAPE TRANSFERRER 10/25/2024 6:03 AM TAPE TRANSFERRER Raisa Scherer ORCHESTRA CONDUCTOR LAB BLOOD ORDERABLES Jeaneth l Result Performing Organization Address [facility] Co de Phone Number [facility] [address] [place] [address] * Hepatitis panel, acute Blood (10/23/2024 2:45 PM TAPE TRANSFERRER) Hep A IgM Nonreactive Nonreactive Comment: Interpretive Data: If Hep A IgM Ab is reported as Equivocal, a new sample should be drawn in two weeks for testing. Current interpretive data was last revised on 20. Hep B core IgM Nonreactive Nonreactive [facility] Comment: Interpretive Data If HepB Core IgM Ab is reported as Equivocal, a new sample should be drawn in two weeks for testing. Current interpretive data was last revised on 20. Hep C Ab Nonreactive Nonreactive [facility] Comment: Interpretive Data Nonreactive: Antibodies to HCV [...] revised on 2020. HepBsAg Nonreactive Nonreactive [facility] Blood 10/23/2024 2:45 PM TAPE TRANSFERRER 10/23/2024 2:46 PM TAPE TRANSFERRER Sherrill Christianson MD LAB MICROBIOLOGY - GENERAL ORDERABLES Final Result Performing Organization Address City/[facility]/ZIP Co de Phone Number [facility] [address] [place] [address] * (ABNORMAL) DIABETES EYE EXAM (08/13/2024 9:40 [...] LAB URINE ORDERABLES Jeaneth mari Result [facility] [address] Department [place] [address] * (ABNORMAL) Lipid panel (03/03/2024 9:29 AM [...] BLOOD ORDERABLES Jeaneth mari Result [facility] [address] Department [place] [address] * CT Abdomen Pelvis WO Contrast (12/05/2021 11:53 AM TAPE TRANSFERRER) Anatomical Region Laterality Modality Body N/A Computed Tomogra phy 12/05/2021 12:0 4 PM TAPE TRANSFERRER Impressions 12/05/2021 12:04 PM TAPE TRANSFERRER Bone windows show no suspicious lytic or blastic lesions. IMPRESSION: 1. 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 2. 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 Electronically signed by: Ryan Cameron M.D. Narrative 12/05/2021 12:04 PM TAPE TRANSFERRER EXAMINATION: Computed tomography of the abdomen/pelvis without [...] adeniform shape. There is atrophy of both [place]qs[place] kidneys. Adjacent fat stranding is likely related [...] adeniform shape. There is atrophy of both [place] kidneys. Adjacent fat stranding is likely related [...] LIFE MEDICARE MEDICARE FOR LIFE Care Teams Recording Studio Intern Relationship Specialty Start Date End Date Mariza Carrion MD [address] [facility] [place] [address] [place] [address] PCP - General Family Practice 03/05/23 Efren Hoyos MD Referring Physician Ophthalmology 06/16/19 Dank Hicks MD [address] [facility] [address] [place], [place] [id number] Consulting Physician Cardiology 10/11/21
--- OUTSIDE RECORDS SUMMARY | 2025-04-09 19:30 | XMS_ITS | CONTINUITY OF CARE DOCUMENT ---
Author Name milly atkins Address Unknown Organization [facility] Address [address] [place] [address] Phone [phone] Care Team Providers Care Cd Reactor Operator Name Role Phone Kostas Pelaez MD Unavailable [phone] Kostas Pelaez MD Unavailable [phone] PROBLEMS Condition Status Date Provider Notes S/P Single chamb PCM Micra - Medtronic ( MRI safe) active Tonie Garay INSURANCE PROVIDERS Payer name Policy type / Coverage type Augustin red libertarian ID [employer] [place] [id number] [place] Medicare [id number]
--- OUTSIDE RECORDS SUMMARY | 2025-04-09 19:30 | XMS_ITS | Clinical Summary ---
Author Organization [facility] Address [address] [place] [phone] Care Team Providers Care Cot Assembler Name Role Phone Efren Hoyos MD Unavailable Dank Hicks MD Unavailable [phone] Mariza Cariron MD Primary Care Provider Allergies No known [...] with long-term current use of insulin ([facility]) Change sensor every 14 days 9 [...] with long-term current use of insulin ([facility]) Use pads 5 times daily 200 [...] 12/09/2019 Assessment & Plan (09/03/2023 9:28 AM MANAGER GYN): Chronic problem. [facility] [place]: //Saturdays. LUE fistula. Assessment & Plan (03/05/2023 9:59 AM CDT): Chronic problem. [facility] [place]: //Saturdays. LUE fistula. Hyperlipidemia associated with type 2 diabetes fouzia victoria 05/22/2019 Assessment & Plan (11/24/2024 10:10 AM MANAGER GYN): Chronic problem. Controlled on current Atorvastatin 20mg. Last lipid panel: 03/03/24 LDL=33, TG=75. Assessment & Plan (03/03/2024 8:45 AM CDT): Chronic problem. Controlled on current Atorvastatin 20mg. Last lipid panel: 03/05/23 LDL=57, YJ=837. Will update labs today. Does not mychart. Verified phone #/address to contact re: results. Assessment & Plan (09/03/2023 9:28 AM MANAGER GYN): Chronic problem. Controlled on current Atorvastatin 20mg. Last lipid panel: 03/05/23 LDL=57, IL=136. Assessment & Plan (03/05/2023 9:53 AM CDT): Chronic problem. Controlled on current Atorvastatin 20mg. Last lipid panel: 12/05/21 LDL=36, QE=168. Will update labs today. Verified phone #/address to contact re: results. Assessment & Plan (11/02/2022 2:47 PM MANAGER GYN): Chronic, well controlled Low fat Low cholesterol [...] Lipitor Assessment & Plan (09/07/2020 2:26 PM MANAGER GYN): Goal of treatment , LDL cholesterol less [...] panel Assessment & Plan (12/09/2019 2:03 PM MANAGER GYN): Very high TG Add Vascepa Assessment & [...] statin therapy Coronary artery disease invo lving cachil dehe coronary artery of cachil dehe heart without angina pectoris 10/04/2017 Hx of CABG 10/04/2017 Class 2 severe obesity due t o excess calories with serious comorbidity and body mass index (BMI) of 38.0 to 38.9 in adult 05/22/2017 Assessment & Plan (10/24/2018 12:58 PM MANAGER GYN): Making progress with diet efforts. Continue Assessment & Plan (02/08/2018 11:01 AM CDT): Importance of following diet and exercising discussed. Hypertension associated with diabetes 05/22/2017 Assessment & Plan (11/24/2024 10:11 AM MANAGER GYN): Chronic problem. Controlled on current losartan 100mg daily, amlodipine 10mg daily Assessment & Plan (03/03/2024 8:45 AM CDT): Chronic problem. BP elevated upon arrival. Controlled on current Carvedilol 25mg bid, losartan 100mg daily. No changes at this time. Will update labs today. Does not mychart. Verified phone #/address to contact re: results. Assessment & Plan (09/03/2023 9:28 AM MANAGER GYN): Chronic problem. BP elevated upon arrival. Controlled [...] renal Assessment & Plan (10/24/2018 12:57 PM MANAGER GYN): Controlled. Continue current medication plan and follow up with cardiology Assessment & Plan (06/18/2018 2:30 PM CDT): BP controlled on current medication plan. Continue follow up with nephrology Assessment & Plan (02/08/2018 11:00 AM CDT): Continue same medication Assessment & Plan (12/11/2017 10:24 AM MANAGER GYN): Goal blood pressure is less than 140/85 Low salt diet recommended Daily aerobic exercise Continue current meds, including VIVIENNE-I or ARB Assessment & Plan (05/22/2017 11:32 AM CDT): Goal blood pressure is less than 140/85 Low salt diet recommended Daily aerobic exercise Continue current meds, including VVIIENNE-I or ARB Type 2 diabetes mellitus wit h hyperglycemia, with long-term current use of insulin 03/13/2014 Overview (01/26/2017): Insulin treated Type II diabetes mellitus Assessment & Plan (11/24/2024 10:16 AM MANAGER GYN): Chronic problem, controlled on current regimen. A1c [...] daily for skin breakdown and infection (sees market development analyst regularly). Assessment & Plan (03/03/2024 9:19 AM [...] daily for skin breakdown and infection (sees market development analyst regularly). Assessment & Plan (09/03/2023 9:27 AM MANAGER GYN): Chronic problem, controlled on current regimen. A1c [...] daily for skin breakdown and infection (sees market development analyst regularly). Assessment & Plan (03/05/2023 10:13 AM CDT): Chronic problem, controlled on current regimen. Current medications: Trulicity 1.5mg weekly Lantus 6 units every morning Humalog 4 units before meals For sugars over 160: take 6 units For sugars over 200: take 8 units Seen by [facility] every 4-5 mos; letter sent to get [...] daily for skin breakdown and infection (sees market development analyst regularly). Will update labs today. Verified phone #/address to contact re: results. Assessment & Plan (11/02/2022 2:43 PM MANAGER GYN): Well controlled, with risk of hypoglycemia Insuli [...] Ross Assessment & Plan (09/07/2020 2:26 PM MANAGER GYN): Hba1c was Lab Results Component Value Date [...] Trulicity. Assessment & Plan (12/09/2019 2:03 PM MANAGER GYN): Your Hba1c today was: Lab Results Component Value Date HGBA1C 9.3 12/09/2019 meaning a 3 month average sugar of : 224 Your goal hba1c is under 7.0 to prevent jail diabetes complications ( eye , kidney and [...] hypoglycemia. Assessment & Plan (10/24/2018 1:00 PM MANAGER GYN): Stable BG pattern 100-140 reported since last adjustment to plan. No change today. BG goals reviewed. Advised to lower Lantus by 2 units if FBG are < 100 x 2 days/wk. For planned activity, reduce Humalog dose by 1/2 at preceding meal. Assessment & Plan (09/19/2018 11:11 AM MANAGER GYN): Your Hba1c today was: Lab Results Component Value Date HGBA1C 5.1 09/19/2018 meaning a 3 month average sugar of : 81 Your goal hba1c is under 7.0 to prevent jail diabetes complications ( eye , kidney and [...] time. Assessment & Plan (12/11/2017 10:47 AM MANAGER GYN): Hba1c was .5.4 Today, 1800 calorie, consistent [...] 05/22/2019 Assessment & Plan (09/19/2018 11:20 AM MANAGER GYN): Prevention and treatment of hypoglycemia were discussed [...] therapy Assessment & Plan (10/24/2018 12:57 PM MANAGER GYN): Check lipid panel Assessment & Plan (06/18/2018 2:31 PM CDT): Continue statin therapy Assessment & Plan (02/08/2018 11:00 AM CDT): Continue atorvastatin Assessment & Plan (12/11/2017 10:45 AM MANAGER GYN): Goal of treatment , LDL cholesterol less [...] Description 01/21/2025 9:30 AM CDT Ancillary Procedure [facility] Medical [facility] Cardiology [address] [place] [address] Cardiac pacemaker in situ; Asystole (HCC); Syncope and collapse; Symptomatic bradycardia 01/19/2025 Telephone [facility] Medical [facility] Cardiology [address] [facility] [address], [place] [address] Dank Hicks MD from Last 3 Months Surgical History [...] drink = 0.6 oz pur e alcohol) [facility] [employer] Answer Date Recorded In the past 12 months has e electric, gas, oil, or water [employer] threatened to shut off services in your [...] often do you attend chur ch or pentecostalism services? Never 10/23/2024 Do you belong to [...] any time in the past 12 m [facility], were you homeless or living in [...] on file Legal Sex Male 7:27 PM MANAGER GYN Gender Identity Not on file Sexual Orientation Not on file Obstetrics History Last Filed Vital Signs Vital Sign Reading Time Taken Comments Blood Pressure 102/58 11/24/2024 9:58 AM MANAGER GYN Pulse 75 11/24/2024 9:58 AM MANAGER GYN Temperature 36.3 C (97.3 F) 10/25/2024 2:15 PM MANAGER GYN Respiratory Rate 20 11/24/2024 9:58 AM MANAGER GYN Oxygen Saturation 100% 10/25/2024 1:15 PM MANAGER GYN Inhaled Oxygen Concentration - - Weight 91.3 kg (201 lb 4.5 oz) 10/22/2024 8:29 P M MANAGER GYN Height 170.2 cm (5' 7.01) 11/24/2024 9:58 AM CS T Body Mass Index 31.52 10/22/2024 8:29 PM MANAGER GYN Plan of Treatment Health Maintenance Due Date [...] 10/23/2024, 022 Medical Devices Implanted Type Area School Bus Dispatcher Device Identifier Shelf Expiration Date Model / Serial / Lot Med[employer]onic Inc Micra 2 Av Synchronous Leadless Ventricular Pacemaker [id number] - [id number] - [id number] Implanted:Qty: 1 on 10/24/2024 by Darien Jamil Jr., MD at [facility] Med[employer] Inc 02/16/2026 [id number] / [id number] / Procedures Procedure Name Priority Date/Time Associated Diagnosis Comments DEVICE CHECK - IN OFFICE Routine 01/21/2025 9:26 AM CDT Cardiac pacemaker in situ Asystole (HCC) Syncope and collapse Symptomatic bradycardia POCT HEMOGLOBIN A1C Routine 11/24/2024 10:01 AM MANAGER GYN Type 2 diabetes mellitus with hyperglycemia, with long-term current use of insulin (CMS/HCC) EGFR Routine 10/25/2024 5:48 AM MANAGER GYN HEPATITIS PANEL, ACUTE Routine 10/23/2024 2:45 PM MANAGER GYN HM DIABETES EYE EXAM Routine 08/13/2024 9:40 [...] Read Routine (OP Routine) 12/05/2021 11:53 AM MANAGER GYN End stage renal disease (HCC) from Last 3 Months or Most Recently Relevant to Health Maintenance Results * DEVICE CHECK - IN OFFICE (01/21/2025 9:26 AM CDT) Anatomical Region Laterality Modality Other Narrative 01/29/2025 8:25 AM CDT Medtronic Micra AV2 Pacemaker. Dx; Symptomatic Bradycardia, Sinus Arrest, Syncope. DOI 10/24/2024-Loulou. Sisi-Fabiola. Carelink remote. Supervising MD: Dr Giordano. Interrogation [...] provided. Carelink scheduled 04/22/2025. Yamel Cesar RN Dank Hicks MD CV CARDIAC SERVICES PROC EDURES Final Result * POCT hemoglobin A1c (11/24/2024 10:01 AM MANAGER GYN) Pathologist [facility] Hemoglobin A1C, POC 4.9 4.0 - 5.6 % Blood 11/24/2024 10:0 1 AM MANAGER GYN Bertha Pinto NP POINT OF CARE TEST ORDERA BLES Final Result * (ABNORMAL) eGFR (10/25/2024 5:48 AM MANAGER GYN) Pathologist [facility] eGFR 9(L) >=60 mL/min/1. 73 m2 Comment: [...] last reviewed 2021. Blood 10/25/2024 5:48 AM MANAGER GYN 10/25/2024 6:03 AM MANAGER GYN Raisa Scherer [employer] SALESPERSON LAB BLOOD ORDERABLES Jeaneth l Result Performing Organization Address City/[facility]/ZIP Co de Phone Number NIDIA C[place] [address] [employer] [place] [address] * Hepatitis panel, acute Blood (10/23/2024 2:45 PM MANAGER GYN) Hep A IgM Nonreactive Nonreactive Comment: Interpretive [...] [facility] Blood 10/23/2024 2:45 PM MANAGER GYN 10/23/2024 2:46 PM MANAGER GYN Sherrill Christianson MD LAB MICROBIOLOGY - GENERAL ORDERABLES Final Result Performing Organization Address City/[facility]/ZIP Co de Phone Number [place]IA [place] [address] [place] [address] * (ABNORMAL) DIABETES EYE EXAM (08/13/2024 9:40 AM CDT) Historical Provider HEALTH MAINTENANCE Edited Result - Final * (ABNORMAL) Albumin Creatinine Ratio, Urine (03/10/2024 8:46 AM CDT) Albumin Ur 3,169.5 mg/L Comment: Interpretive Data No reference range established. Current interpretive data was last revised 2019. Creatinine Ur 47.7 mg/dL [facility] Comment: Interpretive Data No reference range established. Current interpretive data was last revised 2019. Albumin Creatinine Ratio, Ur 6,645(H) 1 - 29 mg/g [facility] Urine 03/10/2024 8:46 AM CDT 03/11/2024 9:11 AM CDT us Bertha Pinto NP LAB URINE ORDERABLES Jeaneth mari Result [facility] [address] Department [place] [address] * (ABNORMAL) Lipid panel (03/03/2024 9:29 AM [...] revised on 2018. Triglycerides 75 <=149 mg/dL [facility] Comment: Interpretive Data Ages < or [...] CDT 03/03/2024 4:40 PM CDT us Bertha RJames Pinto [employer] SALESPERSON LAB BLOOD ORDERABLES Jeaneth mari Result [place] [address] Department [place] [address] * CT Abdomen Pelvis WO Contrast (12/05/2021 11:53 AM MANAGER GYN) Anatomical Region Laterality Modality Body N/A Computed Tomogra phy 12/05/2021 12:0 4 PM MANAGER GYN Impressions 12/05/2021 12:04 PM MANAGER GYN Bone windows show no suspicious lytic or blastic lesions. IMPRESSION: 1. 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 2. 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 Electronically signed by: Ryan Cameron M.D. Narrative 12/05/2021 12:04 PM MANAGER GYN EXAMINATION: Computed tomography of the abdomen/pelvis without [...] adeniform shape. There is atrophy of both cachil dehe kidneys. Adjacent fat stranding is likely related [...] adeniform shape. There is atrophy of both cachil dehe kidneys. Adjacent fat stranding is likely related [...] by: Ryan Cameron M.D. Alex Ceballos MD [facility] CT PROCEDURES Final Re sult from Last 3 Months or Most Recently Relevant to Health Maintenance Insurance MEDICARE FOR LIFE FOR LIFE MEDICARE MEDICARE FOR LIFE Care Teams Cot Assembler Relationship Specialty Start Date End Date Mariza Carrion MD [address] [facility] [address] [place] [address] PCP - General Family Practice 03/05/23 Efren Hoyos MD Referring Physician Ophthalmology 06/16/19 Dank Hicks MD [address] [facility] [address] [place], [place] [id number] Consulting Physician Cardiology 10/11/21
--- OUTSIDE RECORDS SUMMARY | 2025-04-09 19:30 | XMS_ITS | Clinical Summary ---
Author Organization [email or web address] [facility] Address [address] [place] [address] Care Team Providers Care Snowboard Designer Name Role Phone Mariza Carrion MD Primary Care Provider Source Comments [facility],non-owned Affiliates and Associated Physician Practices is amultiple site organization consisting of ambulatory clinics and hospital sitesin [place], [place], [place] and [place]. This disclosure is being madepursuant to the Care Everywhere program and may not contain all information available regarding this patient. Last updated 18.[facility] Allergies No known active allergies Medications * [...] and one-half) mg subcutaneously every 7 days (once a week) 8 Active QC ALCOHOL SWABS 70 % Use pads 5 times daily 8 Active csdsq-3-sahj ethyl esters (LOVAZA) 1 g capsule Take [...] FOR MUSCLE SPASM 4 Active HYDROcodone-ac etaminophen ([place]) 5-325 MG tablet 4 Active Lokelma 10 g packet MIX ONE PACKET WITH WATER AND DRINK BY MOUTH ONCE FOR 1 DOSE 4 Active tamsulosin (Flomax) 0.4 MG capsuleIndicat ions:Urinary retention Take 1 (one) capsule by mouth once daily 90 capsule 3 5 Active Eliquis 2.5 MG tablet 5 Active sevelamer carbonate (Renvela) 0.8 GM pwd packet 5 Active Active Problems Problem Noted Date Diagnosed Date PVD (peripheral vascular disease) 04/11/2023 Cardiac arrest 04/11/2023 Acute hypoxemic respiratory failure 04/11/2023 Encounter regarding vascular access for dialysis for end-stage renal disease 01/24/2023 ESRD (end stage renal disease) 07/09/2018 Complication of arteriovenous dialysis fistula Resolved Problems Problem Noted Date Diagnosed Date Resolved Date Pain 04/05/2023 04/11/2023 Encounters Date Type Department Care Team Description 04/03/2025 11:24 AM CDT - 04/03/2025 11:59 PM CDT Hospital Encounter [facility] Vascular Services [address], [address] [place] [address] Matt Beyer, DO Discharge Disposition: Home or Self Care from Last 3 Months Family History Medical [...] Not hard at all 04/06/2023 [facility] [place] of Occupat ional Health - Occupational Stress [...] Sign Reading Time Taken Comments Blood Pressure 102/54 04/03/2025 12:10 PM CDT Pulse 68 04/03/2025 12:10 PM CDT Temperature 36.3 C (97.3 F) 04/03/2025 11:33 AM CDT Respiratory Rate 11 04/03/2025 12:1 0 PM CDT Oxygen Saturation 96% 04/03/2025 12: 10 PM CDT Inhaled Oxygen Concentration 25% 04/11/2023 7 :26 PM CDT Weight 87.9 kg (193 lb 12.6 oz) 025 11:33 AM CDT Height 170.2 cm (5' 7) 04/03/2025 11:3 3 AM CDT Body Mass Index 30.35 04/03/2025 11:33 AM CDT Plan of Treatment Upcoming Encounters Date Type Department Care Team (Late st Contact Info) Description 10/02/2025 1:00 PM MEDICAL COMMUNICATION SPECIALIST Appointment [facility] Health Vascular Services [id number] [place] [address], [address] [place] [address] [place] [address] [place] [phone] Health Maintenance Due Date Last Done Comments MEDICARE AWV 12 MONTHS 1945 DTAP/TDAP/TD VACCINES (1 - Tdap) 1966 PNEUMOCOCCAL VACCINE 50+ (1 of 2 - PCV) 1966 HEPATITIS B VACCINE (1 of 3 - Risk Dialysis 4-dose series) 1967 ZOSTER VACCINE (1 of 2) 1997 Respiratory Syncytial Virus (RSV) Vaccine Pt: or over 60 yrs (1 - 1-dose 75+ series) 2022 COVID-19 VACCINE ( - 2023-2 5 season) 2024 DEPRESSION SCREENING 10/22/2024 INFLUENZA VACCINE (Season Ended) 2025 08/18/2013 HEPATITIS C SCREENING Completed 10/23/2024 , 04/07/2023 HIB VACCINE Aged Out No longer eligi [...] this topic Medical Devices Implanted Type Area Floral Manager Device Identifier Shelf Expiration Date Model / Serial / Lot [employer]rip Vascular Closure Device Implanted:Qty: 1 on 04/11/2023 by Matt Beyer DO at [facility] Right: Groin 01/19/2025 [id number] / [id number] / [id number] 5tch Cv 6x1cm Phot[employer]ix Decellularized Implanted:Qty: 1 on 04/20/2023 by Matt Beyer DO at [facility] N/A: Other (See Descriptio n) [employer] 01/28/2024 [id number] / / [id number] Description:LEFT FEMORAL ART BARI Procedures Procedure Name Priority Date/Time Associated Diagnosis Comments CARDIAC RHYTHM STRIP ORDER 04/07/2025 4:28 PM CDT HEPATITIS SCREEN ACUTE STAT 04/07/2023 8:19 AM CDT from Last 3 Months or Most Recently Relevant to Health Maintenance Results * CARDIAC RHYTHM STRIP ORDER (04/07/2025 4:28 PM CDT) Narrative 04/07/2025 4:28 PM CDT Ordered by an unspecified provider. us Scanned Document CARDIAC SERVICES ORDERABLES Fin al Result * HEPATITIS SCREEN ACUTE (04/07/2023 8:19 AM [...] AM CDT 04/07/2023 8:31 AM CDT Narrative [facility] - 04/07/2023 9:28 AM CDT Non Reactive - Antibodies to Hepatitis C virus (HCV) were not detected, result does not exclude early acute HCV infection. Marito Rios MD LAB - CHEMISTRY ORDERABLES Jeaneth mari Result Performing Organization Address City/State/[facility] Co de Phone Number [facility] [address] [place] [address] from Last 3 Months or Most Recently Relevant to Health Maintenance Insurance [email or web address] [place] Address: [facility] [address] [place] [address] MEDICARE MEDICARE [facility] Advance Directives Documents on File Type Date Recorded Patient Compugraph Operator Expl anation Adv Directive/Living Will/POA 05/02/2023 3:49 PM * Full Code (Latest Code Status on File) Date Activated Date Inactivated Comments 04/06/2023 9:49 AM 05/01/2023 4:44 PM Care Teams Snowboard Designer Relationship Specialty Start Date End Date Mariza Carrion MD [address] [place] [address] PCP - General Family Medicine 08/26/18
[2025-04-09 19:56] VITALS: BP 150/60; PULSE 77; RESP 20; TEMP 36.7; O2SAT 100
[2025-04-09 20:29] LABS: Basophils Absolute Auto 0.1 K/mm3 (0.0-0.1); Basophils Percent Auto 0.9 % (0.2-1.2); Eosinophils Absolute Auto 0.1 K/mm3 (0-0.3); Eosinophils Percent Auto 1.8 % (0-4.4); Hematocrit 26.2 % (42.0-52.0); Hemoglobin 7.7 g/dL (14.0-18.0); Immature Granulocyte Absolute 0.02 K/mm3 (0.00-0.031); Immature Granulocyte Percent A 0.4 % (0-0.5); Lymphocytes Absolute Auto 0.54 K/mm3 (0.9-3.2); Lymphocytes Percent Auto 9.5 % (18.3-44.2); Mean Corpuscular HGB Conc 29.4 g/dl (32-36); Mean Corpuscular Hemoglobin 26.5 pg (26-34); Mean Platelet Volume 10.5 fl (7.4-10.4); Monocytes Absolute Auto 0.7 K/mm3 (0.1-0.6); Monocytes Percent Auto 11.4 % (2.6-8.5); Neutrophils Absolute Auto 4.3 K/mm3 (1.3-6.7); Platelet Count Result 230 k/mm3 (150-375); Red Blood Count 2.91 M/mm3 (4.6-6.20); White Blood Count 5.7 K/mm3 (4.5-10.0)
[2025-04-09 20:39] LABS: Alanine Aminotransferase 12 U/L (6-50); Albumin Level 3.6 g/dL (3.5-5.1); Alkaline Phosphatase 56 U/L (38-126); Anion Gap 8 mmol/L (4-12); Aspartate Amino Transferase 18 U/L (17-59); Bilirubin,Total 0.3 mg/dL (0.2-1.3); Blood Urea Nitrogen 27 mg/dL (9-20); Calcium 8.3 mg/dL (8.4-10.2); Carbon Dioxide 33 mmol/L (22-30); Chloride 91 mmol/L (98-107); Estimated CRCL calculation 15 ml/min; Estimated Glomerular Filt Rate 16; Glucose 113 mg/dL (65-110); Potassium 4.4 mmol/L (3.4-5.0); Sodium 132 mmol/L (137-145); Total Protein 6.1 g/dL (6.3-8.2)
[2025-04-09 20:43] LABS: Hypochromasia 1+; INR 1.5; Ovalocytes 1+; Platelet Estimate Adequate (Adequate); Prothrombin Time 17.7 Seconds (11.1-14.7)
[2025-04-09 20:44] LABS: Anisocytosis 1+; Partial Thromboplastin Time 43.6 Seconds (22.3-36.8); Schistocytes None Seen
--- NOTE | 2025-04-09 21:34 | ED_ITS ---
HPI - General Adult General Chief complaint: GI Bleed Stated complaint: GI bleed, on Eliquis Time Seen by Provider: 04/09/25 21:23 History of Present Illness HPI narrative: Patient 79-year-old gentleman who presents emergency department with chief complaint of rectal bleeding. Patient reports that he is on a anticoagulants and reports that today when he went to dialysis they had a difficult time getting his fistula. We patient states passed blood at the bowel a and was told to come to the emergency department. Related Data Home Medications ?Medication ?Instructions ?Recorded ?Confirmed ?Last Taken ?Type aspirin 81 mg tablet,delayed 81 mg PO DAILY 10/31/21 03/23/25 03/09/25 History release carvedilol 25 mg tablet 25 mg PO BID 10/31/21 03/23/25 03/09/25 History insulin lispro 100 unit/mL 4 unit subcut .TIDAC 10/31/21 03/23/25 03/09/25 History subcutaneous pen loratadine 10 mg tablet (Claritin) 10 mg PO DAILY 10/31/21 03/23/25 03/09/25 History insulin glargine 100 unit/mL (3 6 unit subcut HS 11/07/23 03/23/25 03/09/25 22:20 History mL) subcutaneous pen (Lantus Solostar U-100 Insulin) cinacalcet 90 mg PO DAILY 12/12/23 03/23/25 03/09/25 History atorvastatin 20 mg tablet 20 mg PO HS 12/21/24 03/23/25 03/09/25 History pentoxifylline 400 mg 400 mg PO QPM 01/29/25 03/23/25 03/09/25 17:00 History tablet,extended release amlodipine 10 mg tablet 10 mg PO DAILY 02/16/25 03/23/25 03/09/25 History bisacodyl 10 mg rectal suppository 10 mg RECTAL DAILY PRN constipation 02/16/25 03/23/25 Unknown History (Laxative (bisacodyl)) gabapentin 100 mg capsule 100 mg PO TID 02/16/25 03/23/25 03/09/25 History liraglutide 0.6 mg/0.1 mL (18 mg/3 1.2 mg subcut HS 02/16/25 03/23/25 03/09/25 History mL) subcutaneous pen injector magnesium citrate (Citroma oral 296 ml PO .AM PRN constipation 02/16/25 03/23/25 Unknown History solution) magnesium hydroxide 400 mg/5 mL 30 ml PO HS PRN constipation 02/16/25 03/23/25 Unknown History oral suspension (Milk of Magnesia) sodium phosphates 19 gram-7 118 ml RECTAL DAILY PRN 02/16/25 03/23/25 Unknown History gram/118 mL enema (Fleet Enema) constipation vitamin B complex 1 cap PO DAILY 02/16/25 03/23/25 03/09/25 History acetaminophen 325 mg tablet 650 mg PO TID 03/10/25 03/23/25 03/09/25 History ipratropium 20 mcg-albuterol 100 1 puff inhalation Q6H PRN 03/10/25 03/23/25 Unknown History mcg/actuation mist for inhalation shortness of breath or wheezing (Combivent Respimat) loperamide 2 mg capsule 2 mg PO Q4H PRN loose stool 03/10/25 03/23/25 Unknown History melatonin 3 mg tablet 3 mg PO HS 03/10/25 03/23/25 03/09/25 History tramadol 50 mg tablet 50 mg PO BID 03/10/25 03/23/25 03/09/25 History umeclidinium 62.5 mcg/actuation 1 inh inhalation DAILY 03/10/25 03/23/25 03/09/25 History blister powder for inhalation (Incruse Ellipta) sevelamer carbonate 0.8 gram oral 0.8 g PO TIDWM 03/14/25 03/23/25 Unknown History powder packet Allergies Allergy/AdvReac Type Severity Reaction Status Date / Time baclofen Allergy Severe encephalopa Verified 03/26/25 11:09 thy Review of Systems 2 Review of Systems: A 10 system review of systems was completed on the patient and is negative except for what is stated in the HPI. Nursing and ancillary documentation was reviewed. [facility] Past Medical History Medical History Insulin dependent type 2 diabetes mellitus (~2009) Chronic obstructive pulmonary disease Diabetic polyneuropathy Coronary artery disease Anemia Atrial fibrillation Chronic neck and back pain Insomnia History of nephrolithiasis Sinus pause (~09/2024) Obstructive sleep apnea Intolerant to CPAP Benign prostatic hyperplasia Peripheral vascular disease (~03/2023) Internal hemorrhoid, bleeding End-stage renal disease on hemodialysis DVT dialysis Sunday History of colon polyps Environmental allergies Vitamin D deficiency Dyslipidemia Essential (primary) hypertension Surgical History Surgical History History of cardiac pacemaker (~10/2024) Medtronic pacemaker placed due to symptomatic sinus pauses causing syncope performed at [facility] Status post cataract extraction of both eyes with insertion of intraocular lens History of colonoscopy with polypectomy History of hemorrhoidectomy (~01/12/24) Anorectal evaluation under anesthesia and excisional hemorrhoidectomy x3 12/14/23 SAW S/P peripheral artery angioplasty (~03/2023) status post balloon angioplasty of bilateral common and external iliac arteries status post left iliofemoral endarterectomy Arteriovenous fistula of left upper extremity (~2017) History of appendectomy (~1962) History of coronary artery bypass graft (~2013) Family History Family History Mother Diabetes mellitus Acute myocardial infarction Family history of congestive heart failure Father Hypertension Social History Social History Social History: The patient is . He and his brother live together prior to his recent hospitalization and placement in to [facility]. He is retired after 26 years of serving in the [employer]. He has 4 children. He used to smoke 1.5-2 packs of cigarettes per day but quit smoking in approximately 2009. He will on a rare occasion drink an alcoholic beverage maybe 2 to 3 times a year. He denies illicit substance use. Surrogate medical decision maker: Wilian Morrissey, sibling. Code status: Full code. Caffeine- daily Smoking packs per day: 1.5 Smoking cigarettes per day: 30.0 Years smoked: 44 Smoking pack-years: 66.00 Smoking status: Unknown if ever smoked Second hand tobacco smoke exposure: No Alcohol intake: unknown Alcohol use details: Maybe 2-3 per year Substance use: unknown Substance use type: does not use Do You Feel Safe in your Home?: Yes Lack of Transportation: YES Lack of Food: Sometimes True Current Housing: I Have Housing Concerned About Future Housing: No Difficulty Paying Gas/Electric Bills: No Difficulty Paying for Meds: No Currently Unemployed: No Education: Don't Know Difficulty w/ Childcare or Family Care: No Living arrangements: with family Occupation/Education: retired Additional occupation/education comments: Retired from the [employer]. Spiritual care concerns: No Agree to blood products: Yes Exam 2 Narrative: GENERAL: Well-appearing, well-nourished, and in no acute distress. HEAD: Normocephalic, atraumatic. EYES: PERRLA and EOMI. ENT: Nares clear, no rhinorrhea or epistaxis. Mucous membranes moist. NECK: Supple. CHEST: Clear to auscultation. No respiratory distress. HEART: Regular rate and rhythm. No murmur heard. Normal peripheral pulses. ABDOMEN: Soft, nontender, nondistended, normal active bowel sounds. : Black guaiac-positive stool EXTREMITIES: Normal range of motion. No edema. SKIN: Warm, dry, no rash. There is a ulceration present to the right heel nonerythematous nondraining NEURO: No focal deficits. Alert and oriented x3. PSYCH: Normal mood and affect. Course Vital Signs Vital signs: Vital Signs Temperature 36.7 C 04/09/25 19:56 Pulse Rate 77 04/09/25 19:56 Respiratory Rate 20 04/09/25 19:56 Blood Pressure 150/60 H 04/09/25 19:56 Pulse Oximetry 100 04/09/25 19:56 Oxygen Delivery Room Air 04/09/25 19:56 Temperature 36.7 C 04/09/25 19:56 Pulse Rate 77 04/09/25 19:56 Respiratory Rate 20 04/09/25 19:56 Blood Pressure 150/60 H 04/09/25 19:56 Pulse Oximetry 100 04/09/25 19:56 Oxygen Delivery Room Air 04/09/25 19:56 Medical Decision Making [facility] Narrative Medical decision making narrative: Diagnosis includes GI bleed, anemia, Laboratory studies were obtained showed hemoglobin of 7.7 this is decreased from the patient's previous labs White count is normal Patient was started on Protonix case was discussed with the hospitalist for admission will be admitted serial H&Hs a GI consult Vital Signs Vital Signs: Vital Signs Temperature 36.7 C 04/09/25 19:56 Pulse Rate 77 04/09/25 19:56 Respiratory Rate 20 04/09/25 19:56 Blood Pressure 150/60 H 04/09/25 19:56 Pulse Oximetry 100 04/09/25 19:56 Oxygen Delivery Room Air 04/09/25 19:56 Temperature 36.7 C 04/09/25 19:56 Pulse Rate 77 04/09/25 19:56 Respiratory Rate 20 04/09/25 19:56 Blood Pressure 150/60 H 04/09/25 19:56 Pulse Oximetry 100 04/09/25 19:56 Oxygen Delivery Room Air 04/09/25 19:56 Lab Data 04/09/25 20:23 04/09/25 20:23 Labs: Lab Results 04/09/25 Range/Units 20:23 WBC 5.7 (4.5-10.0) K/mm3 RBC 2.91 L (4.6-6.20) M/mm3 Hgb 7.7 L (14.0-18.0) g/dL Hct 26.2 L (42.0-52.0) % MCV 90.0 (80-100) fl MCH 26.5 (26-34) pg MCHC 29.4 L (32-36) g/dl RDW 20.0 H (11.5-14.5) % Plt Count 230 (150-375) k/mm3 MPV 10.5 H (7.4-10.4) fl Immature Gran % (Auto) 0.4 (0-0.5) % Neut % (Auto) 76.0 H (45.5-73.1) % Lymph % (Auto) 9.5 L (18.3-44.2) % Craven % (Auto) 11.4 H (2.6-8.5) % Eos % (Auto) 1.8 (0-4.4) % Baso % (Auto) 0.9 (0.2-1.2) % Lymph # (Auto) 0.54 L (0.9-3.2) K/mm3 Craven # (Auto) 0.7 H (0.1-0.6) K/mm3 Eos # (Auto) 0.1 (0-0.3) K/mm3 Baso # (Auto) 0.1 (0.0-0.1) K/mm3 Abs Immat Gran (auto) 0.02 (0.00-0.031) K/mm3 Absolute Neuts (auto) 4.3 (1.3-6.7) K/mm3 Absolute Nucleated RBC 0.000 (0.0-0.012) K/mm3 Band Neutrophils % Not Reportable Nucleated RBC % 0.0 (0.0-0.2) % Platelet Estimate Adequate (Adequate) Hypochromasia 1+ Anisocytosis 1+ Ovalocytes 1+ Schistocytes None seen PT 17.7 H (11.1-14.7) Seconds INR 1.5 APTT 43.6 H (22.3-36.8) Seconds Sodium 132 L (137-145) mmol/L Potassium 4.4 (3.4-5.0) mmol/L Chloride 91 L (98-107) mmol/L Carbon Dioxide 33 H (22-30) mmol/L Anion Gap 8 (4-12) mmol/L BUN 27 H D (9-20) mg/dL Creatinine 3.61 H (0.7-1.3) mg/dL Estim Creat Clear Calc 15 ml/min Estimated GFR 16 L (59 - ) Glucose 113 H (65-110) mg/dL Calcium 8.3 L (8.4-10.2) mg/dL Total Bilirubin 0.3 (0.2-1.3) mg/dL AST 18 (17-59) U/L ALT 12 (6-50) U/L Alkaline Phosphatase 56 (38-126) U/L Total Protein 6.1 L (6.3-8.2) g/dL Albumin 3.6 (3.5-5.1) g/dL Blood Type O Positive Antibody Screen Negative Discharge Plan Discharge Clinical Impression: GI (gastrointestinal bleed), Anemia Patient Disposition: Still a Patient Condition: Stable Patient Language: [place] Prescriptions: No Action carvedilol 25 mg tablet 25 mg PO BID aspirin 81 mg tablet,delayed release (DR/EC) 81 mg PO DAILY insulin lispro 100 unit/mL insulin pen 4 unit subcut .TIDAC loratadine [Claritin] 10 mg tablet 10 mg PO DAILY insulin glargine [Lantus Solostar U-100 Insulin] 100 unit/mL (3 mL) insulin pen 6 unit subcut HS atorvastatin 20 mg tablet 20 mg PO HS tamsulosin 0.4 mg Capsule 0.4 mg PO QHS Qty: 30 0RF furosemide 80 mg Tablet 80 mg PO BID Qty: 60 0RF finasteride [Proscar] 5 mg Tablet 5 mg PO QAM Qty: 30 0RF bisacodyl [Laxative (bisacodyl)] 10 mg suppository 10 mg RECTAL DAILY PRN (Reason: constipation) Rx Instructions: If no results from the MOM. magnesium citrate [Citroma] Solution 296 ml PO .AM PRN (Reason: constipation) Rx Instructions: If no results after enema. Fleet Enema 19-7 gram/118 mL enema 118 ml RECTAL DAILY PRN (Reason: constipation) Rx Instructions: If no results 1 day after the bisacodyl suppository was administered. gabapentin 100 mg capsule 100 mg PO TID liraglutide 0.6 mg/0.1 mL (18 mg/3 mL) pen injector 1.2 mg subcut HS Rx Instructions: To start on 02/20/25. magnesium hydroxide [Milk of Magnesia] 400 mg/5 mL suspension 30 ml PO HS PRN (Reason: constipation) Rx Instructions: If no bowel movement in 3 days. vitamin B complex Capsule 1 cap PO DAILY amlodipine 10 mg tablet 10 mg PO DAILY cinacalcet 90 mg PO DAILY acetaminophen 325 mg Tablet 650 mg PO Q4H PRN (Reason: Mild Pain (1-3) Or Fever) Qty: 60 0RF melatonin 3 mg tablet 3 mg PO HS acetaminophen 325 mg tablet 650 mg PO TID tramadol 50 mg tablet 50 mg PO BID Incruse Ellipta 62.5 mcg/actuation blister with device 1 inh inhalation DAILY Combivent Respimat 20-100 mcg/actuation mist 1 puff inhalation Q6H PRN (Reason: shortness of breath or wheezing) loperamide 2 mg capsule 2 mg PO Q4H PRN (Reason: loose stool) Rx Instructions: administer after each loose stool until symptoms controlled; do not exceed 8 mg per 24 hrs sevelamer carbonate 0.8 gram Powder In Packet 0.8 g PO TIDWM levalbuterol HCl 1.25 mg/3 mL Solution For Nebulization 0.63 mg inhalation Q6HRT Qty: 30 0RF sevelamer carbonate 0.8 gram Powder In Packet 0.8 g PO TIDWM Qty: 60 0RF levalbuterol HCl 0.63 mg/3 mL solution for nebulization 0.63 mg inhalation Q6H PRN (Reason: shortness of breath or wheezing) Qty: 90 0RF amoxicillin-pot clavulanate [Augmentin] 500-125 mg Tablet 1 tablet PO QHS Qty: 3 0RF Eliquis 2.5 mg Tablet 2.5 mg PO Q12HR Qty: 60 0RF doxycycline hyclate 100 mg Tablet 100 mg PO Q12HR Qty: 5 0RF pentoxifylline 400 mg tablet extended release 400 mg PO QPM Rx Instructions: must administer with a meal/food Follow-up/Referrals: Radha Carrion MD [Primary Care Provider] - Time of Disposition: 21:36
--- OUTSIDE RECORDS SUMMARY | 2025-04-09 21:50 | XMS_ITS ---
Author Organization [facility] Address [address] [place] [id number] Care Team Providers Care Director Business Name Role Phone Efren Hoyos MD Unavailable Dank Hicks MD Unavailable [phone] Mariza Carrion MD Primary Care Provider Dialysis [...] POCT HEMOGLOBIN A1C Routine 11/24/2024 10:01 AM IT QUALITY ANALYST Type 2 diabetes mellitus with hyperglycemia, with long-term current use of insulin (CMS/HCC) EGFR Routine 10/25/2024 5:48 AM IT QUALITY ANALYST HEPATITIS PANEL, ACUTE Routine 10/23/2024 2:45 PM IT QUALITY ANALYST HM DIABETES EYE EXAM Routine 08/13/2024 9:40 AM CDT ALBUMIN CREATININE RATIO, URINE Routine 03/10/2024 8:46 AM CDT Type 2 diabetes mellitus with hyperglycemia, with long-term current use of insulin (CMS/HCC) LIPID PANEL Routine 03/03/2024 9:29 AM CDT Type 2 diabetes mellitus with hyperglycemia, with long-term current use of insulin ([facility]) Hyperlipidemia associated with type 2 diabetes mellitus ([facility]) CT ABDOMEN PELVIS WO CONTRAST Schedule Routine, Read Routine (OP Routine) 12/05/2021 11:53 AM IT QUALITY ANALYST End stage renal disease (HCC) from Last [...] with long-term current use of insulin ([facility]) Use to test glucose 5 times daily 450 each 2 04/03/20 18 Active lancets (freestyle) 28 gauge miscIndications:T ype 2 diabetes mellitus with hyperglycemia, with long-term current use of insulin ([facility]) Use to test glucose 5 times [...] with long-term current use of insulin ([facility]) Change sensor every 14 days 9 [...] 12/09/2019 Assessment & Plan (09/03/2023 9:28 AM IT QUALITY ANALYST): Chronic problem. [facility] [place]: //Saturdays. LUE fistula. Assessment & Plan (03/05/2023 9:59 AM CDT): Chronic problem. [facility] [place]: //Saturdays. LUE fistula. Hyperlipidemia associated with type 2 diabetes fouzia victoria 05/22/2019 Assessment & Plan (11/24/2024 10:10 AM IT QUALITY ANALYST): Chronic problem. Controlled on current Atorvastatin 20mg. Last lipid panel: 03/03/24 LDL=33, TG=75. Assessment & Plan (03/03/2024 8:45 AM CDT): Chronic problem. Controlled on current Atorvastatin 20mg. Last lipid panel: 03/05/23 LDL=57, EK=299. Will update labs today. Does not mychart. Verified phone #/address to contact re: results. Assessment & Plan (09/03/2023 9:28 AM IT QUALITY ANALYST): Chronic problem. Controlled on current Atorvastatin 20mg. Last lipid panel: 03/05/23 LDL=57, CW=287. Assessment & Plan (03/05/2023 9:53 AM CDT): Chronic problem. Controlled on current Atorvastatin 20mg. Last lipid panel: 12/05/21 LDL=36, WC=710. Will update labs today. Verified phone #/address to contact re: results. Assessment & Plan (11/02/2022 2:47 PM IT QUALITY ANALYST): Chronic, well controlled Low fat Low cholesterol [...] Lipitor Assessment & Plan (09/07/2020 2:26 PM IT QUALITY ANALYST): Goal of treatment , LDL cholesterol less [...] panel Assessment & Plan (12/09/2019 2:03 PM IT QUALITY ANALYST): Very high TG Add Vascepa Assessment & [...] 05/22/2017 Assessment & Plan (10/24/2018 12:58 PM IT QUALITY ANALYST): Making progress with diet efforts. Continue Assessment & Plan (02/08/2018 11:01 AM CDT): Importance of following diet and exercising discussed. Hypertension associated with diabetes 05/22/2017 Assessment & Plan (11/24/2024 10:11 AM IT QUALITY ANALYST): Chronic problem. Controlled on current losartan 100mg daily, amlodipine 10mg daily Assessment & Plan (03/03/2024 8:45 AM CDT): Chronic problem. BP elevated upon arrival. Controlled on current Carvedilol 25mg bid, losartan 100mg daily. No changes at this time. Will update labs today. Does not mychart. Verified phone #/address to contact re: results. Assessment & Plan (09/03/2023 9:28 AM IT QUALITY ANALYST): Chronic problem. BP elevated upon arrival. Controlled [...] renal Assessment & Plan (10/24/2018 12:57 PM IT QUALITY ANALYST): Controlled. Continue current medication plan and follow up with cardiology Assessment & Plan (06/18/2018 2:30 PM CDT): BP controlled on current medication plan. Continue follow up with nephrology Assessment & Plan (02/08/2018 11:00 AM CDT): Continue same medication Assessment & Plan (12/11/2017 10:24 AM IT QUALITY ANALYST): Goal blood pressure is less than 140/85 [...] mellitus Assessment & Plan (11/24/2024 10:16 AM IT QUALITY ANALYST): Chronic problem, controlled on current regimen. A1c [...] daily for skin breakdown and infection (sees [facility] regularly). Assessment & Plan (03/03/2024 9:19 AM [...] daily for skin breakdown and infection (sees [facility] regularly). Assessment & Plan (09/03/2023 9:27 AM IT QUALITY ANALYST): Chronic problem, controlled on current regimen. A1c [...] daily for skin breakdown and infection (sees [facility] regularly). Assessment & Plan (03/05/2023 10:13 AM CDT): Chronic problem, controlled on current regimen. Current medications: Trulicity 1.5mg weekly Lantus 6 units every morning Humalog 4 units before meals For sugars over 160: take 6 units For sugars over 200: take 8 units Seen by [facility] [place] every 4-5 mos; letter sent to get [...] daily for skin breakdown and infection (sees [facility] regularly). Will update labs today. Verified phone #/address to contact re: results. Assessment & Plan (11/02/2022 2:43 PM IT QUALITY ANALYST): Well controlled, with risk of hypoglycemia Insuli [...] Ross Assessment & Plan (09/07/2020 2:26 PM IT QUALITY ANALYST): Hba1c was Lab Results Component Value Date [...] Trulicity. Assessment & Plan (12/09/2019 2:03 PM IT QUALITY ANALYST): Your Hba1c today was: Lab Results Component [...] hypoglycemia. Assessment & Plan (10/24/2018 1:00 PM IT QUALITY ANALYST): Stable BG pattern 100-140 reported since last adjustment to plan. No change today. BG goals reviewed. Advised to lower Lantus by 2 units if FBG are < 100 x 2 days/wk. For planned activity, reduce Humalog dose by 1/2 at preceding meal. Assessment & Plan (09/19/2018 11:11 AM IT QUALITY ANALYST): Your Hba1c today was: Lab Results Component [...] time. Assessment & Plan (12/11/2017 10:47 AM IT QUALITY ANALYST): Hba1c was .5.4 Today, 1800 calorie, consistent [...] Lantus by 5 more unit. [facility] Assessment & Plan (05/22/2017 11:37 [...] drink = 0.6 oz pur e alcohol) [facility] Utilities Answer Date Recorded In the past 12 months has [employer], gas, oil, or water [employer] threatened to shut off services in your [...] week 10/23/2024 How often do you attend [facility] or mosque services? Never 10/23/2024 Do you belong to any clubs o r organizations such as shinto groups, unions, fraternal or athletic groups, or [...] time in the past 12 m [facility], were you homeless or living in a [facility] (including now)? No 10/23/2024 Personal Safety Answer Date Recorded Have you ever been in or are you currently in a harmful physical or emotional relationship or is someone making you feel afraid or unsafe? Denies 10/22/2024 Sex and Gender Information Value Date Recorded Sex Assigned at Not on file Legal Sex Male 7:27 PM IT QUALITY ANALYST Gender Identity Not on file Sexual Orientation Not on file Last Filed Vital Signs Vital Sign Reading Time Taken Comments Blood Pressure 102/58 11/24/2024 9:58 AM IT QUALITY ANALYST Pulse 75 11/24/2024 9:58 AM IT QUALITY ANALYST Temperature 36.3 C (97.3 F) 10/25/2024 2:15 PM IT QUALITY ANALYST Respiratory Rate 20 11/24/2024 9:58 AM IT QUALITY ANALYST Oxygen Saturation 100% 10/25/2024 1:15 PM IT QUALITY ANALYST Inhaled Oxygen Concentration - - Weight 91.3 kg (201 lb 4.5 oz) 10/22/2024 8:29 P M IT QUALITY ANALYST Height 170.2 cm (5' 7.01) 11/24/2024 9:58 AM CS T Body Mass Index 31.52 10/22/2024 8:29 PM IT QUALITY ANALYST Results * DEVICE CHECK - IN OFFICE [...] * POCT hemoglobin A1c (11/24/2024 10:01 AM IT QUALITY ANALYST) Hemoglobin A1C, POC 4.9 4.0 - 5.6 % Blood 11/24/2024 10:0 1 AM IT QUALITY ANALYST us Bertha Pinto NP POINT OF CARE TEST ORDERA BLES Final Result * (ABNORMAL) eGFR (10/25/2024 5:48 AM IT QUALITY ANALYST) eGFR 9(L) >=60 mL/min/1. 73 m2 Comment: [...] last reviewed 2021. Blood 10/25/2024 5:48 AM IT QUALITY ANALYST 10/25/2024 6:03 AM IT QUALITY ANALYST Raisa Scherer NP LAB BLOOD ORDERABLES Jeaneth l Result [address] [id number] Department [place] [address] * Hepatitis panel, acute Blood (10/23/2024 2:45 PM IT QUALITY ANALYST) Hep A IgM Nonreactive Nonreactive Comment: Interpretive [...] 20. Hep C Ab Nonreactive Nonreactive [facility] Comment: Interpretive Data Nonreactive: Antibodies [...] revised on 2020. HepBsAg Nonreactive Nonreactive [facility] Blood 10/23/2024 2:45 PM IT QUALITY ANALYST 10/23/2024 2:46 PM IT QUALITY ANALYST Sherrill Christianson MD LAB MICROBIOLOGY - GENERAL ORDERABLES Final Result Performing Organization Address City/[facility] Co de Phone Number [address] [id number] [place] [place] [address] * (ABNORMAL) DIABETES EYE EXAM (08/13/2024 9:40 AM CDT) Historical Provider [facility] Edited Result - Final * (ABNORMAL) Albumin Creatinine Ratio, Urine (03/10/2024 8:46 AM CDT) Albumin Ur 3,169.5 mg/L Comment: Interpretive Data No reference range established. Current interpretive data was last revised 2019. Creatinine Ur 47.7 mg/dL [facility] Comment: Interpretive Data No reference range established. Current interpretive data was last revised 2019. Albumin Creatinine Ratio, Ur 6,645(H) 1 - 29 mg/g [facility] Urine 03/10/2024 8:46 AM CDT 03/11/2024 9:11 AM CDT Bertha Pinto NP LAB URINE ORDERABLES Jeaneth l Result Performing Organization Address [facility] Co de Phone Number [address]IA [id number] Department [place] [address] * (ABNORMAL) Lipid panel (03/03/2024 9:29 AM [...] LAB BLOOD ORDERABLES Jeaneth l Result [address] [id number] Department [place] [address] * CT Abdomen Pelvis WO Contrast (12/05/2021 11:53 AM IT QUALITY ANALYST) Anatomical Region Laterality Modality Body N/A Computed Tomogra phy 12/05/2021 12:0 4 PM IT QUALITY ANALYST Impressions 12/05/2021 12:04 PM IT QUALITY ANALYST Bone windows show no suspicious lytic or blastic lesions. IMPRESSION: 1. 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 2. 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 Electronically signed by: Ryan Cameron M.D. Narrative 12/05/2021 12:04 PM IT QUALITY ANALYST EXAMINATION: Computed tomography of the abdomen/pelvis without [...]
--- OUTSIDE RECORDS SUMMARY | 2025-04-09 21:50 | XMS_ITS | Encounter Summary ---
Author Organization [facility] Health Address [address] [place] [address] Care Team Providers Care Vp Emerging Media Name Role Phone Mariza Carrion MD Primary Care Provider Encounter Details Date Type Department Care Team (Late Contact Info) Description 06/03/2018 [facility] Outpatient Visit [facility] [address] [place] [address] [place] [address] [facility] [address] [place] [phone] Social History Tobacco Use Types Packs/Day [...] (Late Contact Info) Description 10/02/2025 1:00 PM CERTIFIED ANESTHESIOLOGIST ASSISTANT Appointment [facility] Health Vascular Services [address] [facility], [address] [place] [address] [place] [address] [phone] documented as of this encounter Visit Diagnoses Not on filedocumented in this encounter Care Teams Vp Emerging Media Relationship Specialty Start Date End Date Mariza Carrion MD [address] [place] [address] PCP - General Family Medicine 08/26/18 documented as of this encounter
--- OUTSIDE RECORDS SUMMARY | 2025-04-09 21:51 | XMS_ITS | Clinical Summary ---
Author Organization [facility] Address [address] [place] [address] Care Team Providers Care Keno Attendant Name Role Phone Mariza Carrion MD Primary Care Provider Source Comments [facility],non-owned Affiliates and Associated Physician Practices is amultiple site organization consisting of ambulatory clinics and hospital sitesin [place], [place], [place] and [place]. This disclosure is being madepursuant to the Care Everywhere program and may not contain all information available regarding this patient. Last updated 18.[facility] Allergies No known active allergies Medications * [...] Use pads 5 times daily 8 Active ihipv-3-mkud ethyl esters (LOVAZA) 1 g capsule Take [...] FOR MUSCLE SPASM 4 Active HYDROcodone-ac etaminophen (Kane) 5-325 MG tablet 4 Active Lokelma 10 [...] - 04/03/2025 11:59 PM CDT Hospital Encounter [facility] Vascular Services [address], [address] [place] [address] Matt Beyer, DO Discharge Disposition: Home or [...] and heating? Not hard at all 04/06/2023 [facility] Occupat ional [facility] - Occupational Stress [...] place to sleep or slept in a m[facility]p (including now)? No 04/06/2023 Sex and Gender [...] st Contact Info) Description 10/02/2025 1:00 PM CLINICAL LABORATORY SCIENCE PROFESSOR Appointment [facility] Health Vascular Services [address] [place] [address], [address] [place] [address] [place] [address] [place] [phone] Health Maintenance Due Date Last Done [...] this topic Medical Devices Implanted Type Area Enrober Device Identifier Shelf Expiration Date Model / Serial / Lot Mynxgrip Vascular Closure Device Implanted:Qty: 1 on 04/11/2023 by Matt Beyer DO at [facility] Right: Groin 01/19/2025 [id number] / [id number] / [id number] Cv 6x1cm Photofix Decellularized Implanted:Qty: 1 on 04/20/2023 by Matt Beyer DO at [facility] N/A: Other (See Descriptio n) [employer] 01/28/2024 [id number] / / [id number] Description:LEFT FEMORAL ART BARI Procedures Procedure Name [...] ORDERABLES Jeaneth mari Result Performing Organization Address City/State/[facility] Co de Phone Number [facility] [address] [place] [address] from Last 3 Months or Most Recently Relevant to Health Maintenance Insurance [employer] MEDICARE MEDICARE [facility] Advance Directives Documents on File Type Date Recorded Patient Systems Technician Expl anation Adv Directive/Living Will/POA 05/02/2023 3:49 PM * Full Code (Latest Code Status on File) Date Activated Date Inactivated Comments 04/06/2023 9:49 AM 05/01/2023 4:44 PM Care Teams Keno Attendant Relationship Specialty Start Date End Date Mariza Carrion MD [address] [place] [address] PCP - General Family Medicine 08/26/18
--- OUTSIDE RECORDS SUMMARY | 2025-04-09 21:51 | XMS_ITS | Clinical Summary ---
Author Organization [facility] Address [address] [place] [phone] Phone Care Team Providers Care Card Setter Name Role Phone Mariza Carrion MD Primary [...] dir 0 11/12/2017 Active ergocalciferol (VITAMIN D-2) 51290 units capsule Take 1 capsule (50,000 Units total) by mouth 2 (two) times a week. 28 capsule 3 03/27/2019 Active hydrALAZINE (APRESOLINE) 100 MG tablet TAKE 1 TABLET TWICE A DAY 180 tablet 4 04/30/2019 Active aspirin 81 MG chewable tablet one p.o. qd 05/23/2012 A ctive ergocalciferol (VITAMIN D-2) 35007 units capsule one p.o. capsule once a [...] (Season Ended) 2025 Insurance MEDICARE Care Teams Card Setter Relationship Specialty Start Date End Date Mariza Carrion MD [address] [place] [address] PCP - General Internal Medicine 01/06/19
--- OUTSIDE RECORDS SUMMARY | 2025-04-09 21:51 | XMS_ITS | Clinical Summary ---
Author Organization [facility] Address [address] [place] [phone] Care Team Providers Care Fishing Rod Trimmer Name Role Phone Efren Hoyos MD Unavailable Dank Hicks MD Unavailable [phone] Mariza Carrion MD Primary Care Provider Allergies [...] with long-term current use of insulin ([facility]) Change sensor every 14 [...] with long-term current use of insulin ([facility]) Use pads 5 times [...] 12/09/2019 Assessment & Plan (09/03/2023 9:28 AM GROUND EQUIPMENT MECHANIC): Chronic problem. [facility] [place]: //Saturdays. LUE fistula. Assessment & Plan (03/05/2023 9:59 AM CDT): Chronic problem. [facility] [place]: //Saturdays. 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 Controlled on current Atorvastatin 20mg. Last lipid panel: 03/03/24 LDL=33, TG=75. Assessment & Plan (03/03/2024 8:45 AM CDT): Chronic problem. Controlled on current Atorvastatin 20mg. Last lipid panel: 03/05/23 LDL=57, VY=812. Will update labs today. Does not mychart. Verified phone #/address to contact re: results. Assessment & Plan (09/03/2023 9:28 AM GROUND EQUIPMENT MECHANIC): Chronic problem. Controlled on current Atorvastatin 20mg. Last lipid panel: 03/05/23 LDL=57, BQ=571. Assessment & Plan (03/05/2023 9:53 AM CDT): Chronic problem. Controlled on current Atorvastatin 20mg. Last lipid panel: 12/05/21 LDL=36, SQ=234. Will update labs today. Verified phone #/address to contact re: results. Assessment & Plan (11/02/2022 2:47 PM GROUND EQUIPMENT MECHANIC): Chronic, well controlled Low fat Low cholesterol [...] Lipitor Assessment & Plan (09/07/2020 2:26 PM GROUND EQUIPMENT MECHANIC): Goal of treatment , LDL cholesterol less [...] panel Assessment & Plan (12/09/2019 2:03 PM GROUND EQUIPMENT MECHANIC): Very high TG Add Vascepa Assessment & [...] statin therapy Coronary artery disease invo lving akiak coronary artery of akiak heart without angina pectoris 10/04/2017 Hx of CABG 10/04/2017 Class 2 severe obesity due t o excess calories with serious comorbidity and body mass index (BMI) of 38.0 to 38.9 in adult 05/22/2017 Assessment & Plan (10/24/2018 12:58 PM GROUND EQUIPMENT MECHANIC): Making progress with diet efforts. Continue Assessment & Plan (02/08/2018 11:01 AM CDT): Importance of following diet and exercising discussed. Hypertension associated with diabetes 05/22/2017 Assessment & Plan (11/24/2024 10:11 AM GROUND EQUIPMENT MECHANIC): Chronic problem. Controlled on current losartan 100mg daily, amlodipine 10mg daily Assessment & Plan (03/03/2024 8:45 AM CDT): Chronic problem. BP elevated upon arrival. Controlled on current Carvedilol 25mg bid, losartan 100mg daily. No changes at this time. Will update labs today. Does not mychart. Verified phone #/address to contact re: results. Assessment & Plan (09/03/2023 9:28 AM GROUND EQUIPMENT MECHANIC): Chronic problem. BP elevated upon arrival. Controlled [...] renal Assessment & Plan (10/24/2018 12:57 PM GROUND EQUIPMENT MECHANIC): Controlled. Continue current medication plan and follow up with cardiology Assessment & Plan (06/18/2018 2:30 PM CDT): BP controlled on current medication plan. Continue follow up with nephrology Assessment & Plan (02/08/2018 11:00 AM CDT): Continue same medication Assessment & Plan (12/11/2017 10:24 AM GROUND EQUIPMENT MECHANIC): Goal blood pressure is less than 140/85 [...] mellitus Assessment & Plan (11/24/2024 10:16 AM GROUND EQUIPMENT MECHANIC): Chronic problem, controlled on current regimen. A1c [...] daily for skin breakdown and infection (sees tag stringer regularly). Assessment & Plan (03/03/2024 9:19 AM [...] daily for skin breakdown and infection (sees tag stringer regularly). Assessment & Plan (09/03/2023 9:27 AM GROUND EQUIPMENT MECHANIC): Chronic problem, controlled on current regimen. A1c [...] daily for skin breakdown and infection (sees tag stringer regularly). Assessment & Plan (03/05/2023 10:13 AM CDT): Chronic problem, controlled on current regimen. Current medications: Trulicity 1.5mg weekly Lantus 6 units every morning Humalog 4 units before meals For sugars over 160: take 6 units For sugars over 200: take 8 units Seen by [facility] every 4-5 mos; letter sent to [...] daily for skin breakdown and infection (sees tag stringer regularly). Will update labs today. Verified phone #/address to contact re: results. Assessment & Plan (11/02/2022 2:43 PM GROUND EQUIPMENT MECHANIC): Well controlled, with risk of hypoglycemia Insuli [...] Ross Assessment & Plan (09/07/2020 2:26 PM GROUND EQUIPMENT MECHANIC): Hba1c was Lab Results Component Value Date [...] Trulicity. Assessment & Plan (12/09/2019 2:03 PM GROUND EQUIPMENT MECHANIC): Your Hba1c today was: Lab Results Component [...] hypoglycemia. Assessment & Plan (10/24/2018 1:00 PM GROUND EQUIPMENT MECHANIC): Stable BG pattern 100-140 reported since last adjustment to plan. No change today. BG goals reviewed. Advised to lower Lantus by 2 units if FBG are < 100 x 2 days/wk. For planned activity, reduce Humalog dose by 1/2 at preceding meal. Assessment & Plan (09/19/2018 11:11 AM GROUND EQUIPMENT MECHANIC): Your Hba1c today was: Lab Results Component [...] time. Assessment & Plan (12/11/2017 10:47 AM GROUND EQUIPMENT MECHANIC): Hba1c was .5.4 Today, 1800 calorie, consistent [...] 05/22/2019 Assessment & Plan (09/19/2018 11:20 AM GROUND EQUIPMENT MECHANIC): Prevention and treatment of hypoglycemia were discussed [...] therapy Assessment & Plan (10/24/2018 12:57 PM GROUND EQUIPMENT MECHANIC): Check lipid panel Assessment & Plan (06/18/2018 2:31 PM CDT): Continue statin therapy Assessment & Plan (02/08/2018 11:00 AM CDT): Continue atorvastatin Assessment & Plan (12/11/2017 10:45 AM GROUND EQUIPMENT MECHANIC): Goal of treatment , LDL cholesterol less [...] Description 01/21/2025 9:30 AM CDT Ancillary Procedure [facility] Medical [facility] Cardiology [address] [place] [address] Cardiac pacemaker in situ; Asystole (HCC); Syncope and collapse; Symptomatic bradycardia 01/19/2025 Telephone [facility] Cardiology [address] [facility] [address], [place] [address] Dank Hicks MD from Last [...] 0.6 oz pur e alcohol) [facility] [employer] Answer Date Recorded In the past 12 months has e electric, gas, oil, or water [employer] threatened to shut off services in your [...] often do you attend chur ch or oriental orthodox services? Never 10/23/2024 Do you belong to any clubs o r organizations such as bahai groups, unions, fraternal or athletic groups, or [...] on file Legal Sex Male 7:27 PM GROUND EQUIPMENT MECHANIC Gender Identity Not on file Sexual Orientation Not on file Obstetrics History Last Filed Vital Signs Vital Sign Reading Time Taken Comments Blood Pressure 102/58 11/24/2024 9:58 AM GROUND EQUIPMENT MECHANIC Pulse 75 11/24/2024 9:58 AM GROUND EQUIPMENT MECHANIC Temperature 36.3 C (97.3 F) 10/25/2024 2:15 PM GROUND EQUIPMENT MECHANIC Respiratory Rate 20 11/24/2024 9:58 AM GROUND EQUIPMENT MECHANIC Oxygen Saturation 100% 10/25/2024 1:15 PM GROUND EQUIPMENT MECHANIC Inhaled Oxygen Concentration - - Weight 91.3 kg (201 lb 4.5 oz) 10/22/2024 8:29 P M GROUND EQUIPMENT MECHANIC Height 170.2 cm (5' 7.01) 11/24/2024 9:58 AM CS T Body Mass Index 31.52 10/22/2024 8:29 PM GROUND EQUIPMENT MECHANIC Plan of Treatment Health Maintenance Due Date [...] 10/23/2024, 022 Medical Devices Implanted Type Area State Tested Nursing Assistant Device Identifier Shelf Expiration Date Model / Serial / Lot Med[employer]onic Inc Micra 2 Av Synchronous Leadless Ventricular Pacemaker [id number] - [id number] - [id number] Implanted:Qty: 1 on 10/24/2024 by Darien Jamil Jr., MD at [facility] [employer] 02/16/2026 [id number] / [id number] / Procedures Procedure Name Priority Date/Time Associated Diagnosis Comments DEVICE CHECK - IN OFFICE Routine 01/21/2025 9:26 AM CDT Cardiac pacemaker in situ Asystole (HCC) Syncope and collapse Symptomatic bradycardia POCT HEMOGLOBIN A1C Routine 11/24/2024 10:01 AM GROUND EQUIPMENT MECHANIC Type 2 diabetes mellitus with hyperglycemia, with long-term current use of insulin (CMS/HCC) EGFR Routine 10/25/2024 5:48 AM GROUND EQUIPMENT MECHANIC HEPATITIS PANEL, ACUTE Routine 10/23/2024 2:45 PM GROUND EQUIPMENT MECHANIC HM DIABETES EYE EXAM Routine 08/13/2024 9:40 [...] Read Routine (OP Routine) 12/05/2021 11:53 AM GROUND EQUIPMENT MECHANIC End stage renal disease (HCC) from Last [...] * POCT hemoglobin A1c (11/24/2024 10:01 AM GROUND EQUIPMENT MECHANIC) Pathologist [facility] Hemoglobin A1C, POC 4.9 4.0 - 5.6 % Blood 11/24/2024 10:0 1 AM GROUND EQUIPMENT MECHANIC Bertha Pinto NP POINT OF CARE TEST ORDERA BLES Final Result * (ABNORMAL) eGFR (10/25/2024 5:48 AM GROUND EQUIPMENT MECHANIC) Pathologist [facility] [...] last reviewed 2021. Blood 10/25/2024 5:48 AM GROUND EQUIPMENT MECHANIC 10/25/2024 6:03 AM GROUND EQUIPMENT MECHANIC Raisa Scherer PROFESSOR OF FOREST PLANNING LAB BLOOD ORDERABLES Jeaneth l Result Performing Organization Address City/[facility]/ZIP Co de Phone Number [facility] [address] [place] [address] * Hepatitis panel, acute Blood (10/23/2024 2:45 PM GROUND EQUIPMENT MECHANIC) Hep A IgM Nonreactive Nonreactive Comment: Interpretive Data: If Hep A IgM Ab is reported as Equivocal, a new sample should be drawn in two weeks for testing. Current interpretive data was last revised on 20. Hep B core IgM Nonreactive Nonreactive [facility] Comment: Interpretive Data If HepB Core IgM Ab is reported as Equivocal, a new sample should be drawn in two weeks for testing. Current interpretive data was last revised on 20. Hep C Ab Nonreactive Nonreactive [facility] Comment: Interpretive Data Nonreactive: Antibodies to [...] last revised on 2020. HepBsAg Nonreactive Nonreactive [facility] Blood 10/23/2024 2:45 PM GROUND EQUIPMENT MECHANIC 10/23/2024 2:46 PM GROUND EQUIPMENT MECHANIC Sherrill Christianson MD LAB MICROBIOLOGY - GENERAL ORDERABLES Final Result Performing Organization Address City/[facility]/ZIP Co de Phone Number [facility] [place] [address] [address] Department [place] [address] * (ABNORMAL) DIABETES EYE EXAM (08/13/2024 9:40 AM CDT) Historical Provider HEALTH MAINTENANCE Edited Result - Final * (ABNORMAL) Albumin Creatinine Ratio, Urine (03/10/2024 8:46 AM CDT) Albumin Ur 3,169.5 mg/L Comment: Interpretive Data No reference range established. Current interpretive data was last revised 2019. Creatinine Ur 47.7 mg/dL [facility] Comment: Interpretive Data No reference range established. Current interpretive data was last revised 2019. Albumin Creatinine Ratio, Ur 6,645(H) 1 - 29 mg/g [facility] Urine 03/10/2024 8:46 AM CDT 03/11/2024 9:11 AM CDT us Bertha Pinto NP LAB URINE ORDERABLES Jeaneth mari Result [facility] [address] [address] Department [place] [address] * (ABNORMAL) Lipid panel (03/03/2024 9:29 AM [...] revised on 2018. Triglycerides 75 <=149 mg/dL [facility] Comment: Interpretive Data Ages < or [...] 4:40 PM CDT us Bertha RJames Pinto PROFESSOR OF FOREST PLANNING LAB BLOOD ORDERABLES Jeaneth mari Result [facility] [place] [address] Department [place] [address] * CT Abdomen Pelvis WO Contrast (12/05/2021 11:53 AM GROUND EQUIPMENT MECHANIC) Anatomical Region Laterality Modality Body N/A Computed Tomogra phy 12/05/2021 12:0 4 PM GROUND EQUIPMENT MECHANIC Impressions 12/05/2021 12:04 PM GROUND EQUIPMENT MECHANIC Bone windows show no suspicious lytic or blastic lesions. IMPRESSION: 1. 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 2. 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 Electronically signed by: Ryan Cameron M.D. Narrative 12/05/2021 12:04 PM GROUND EQUIPMENT MECHANIC EXAMINATION: Computed tomography of the abdomen/pelvis without [...] adeniform shape. There is atrophy of both [place]kiak kidneys. Adjacent fat stranding is likely related [...] adeniform shape. There is atrophy of both [place] kidneys. Adjacent fat stranding is likely related [...] by: Ryan Cameron M.D. Alex Ceballos MD [facility] [place] PROCEDURES Final Re sult from Last 3 Months or Most Recently Relevant to Health Maintenance Insurance MEDICARE FOR LIFE FOR LIFE MEDICARE MEDICARE FOR LIFE Care Teams Fishing Rod Trimmer Relationship Specialty Start Date End Date Mariza Carrion MD [address] [facility] [address] [place] [address] PCP - General Family Practice 03/05/23 Efren Hoyos MD Referring Physician Ophthalmology 06/16/19 Dank Hicks MD [address] [facility] [address] [place], [place] [id number] Consulting Physician Cardiology 10/11/21
--- OUTSIDE RECORDS SUMMARY | 2025-04-09 21:51 | XMS_ITS | Clinical Summary ---
Author Organization [facility] Address [address] [address] Care Team Providers Care Rubber Down Name Role Phone Murali Dawkins MD Primary [...] age to complete this topic Insurance Medicare [facility] Care Teams Rubber Down Relationship Specialty Start Date End Date Murali Dawkins MD [address] [place] [address] PCP - General Family Medicine 10/28/24
--- OUTSIDE RECORDS SUMMARY | 2025-04-09 21:52 | XMS_ITS | Referral Summary ---
Author Organization [facility] Address [address] [place] [id number] Care Team Providers Care Welder First Class Name Role Phone Efren Hoyos MD Unavailable Dank Hicks MD Unavailable [phone] Mariza Carrion MD Primary Care Provider Encounters Date Type Department Care Team Description 01/21/2025 9:30 AM CDT Ancillary Procedure [facility] Medical [facility] Cardiology [address] [place] [phone] Cardiac pacemaker in situ; Asystole (HCC); Syncope and collapse; Symptomatic bradycardia 01/19/2025 Telephone [facility] Cardiology [address] [place] [address] [place] [phone] Dank Hicks MD from Last 3 [...] long-term current use of insulin ([facility]) Use to test glucose 5 times daily 450 each 2 04/03/20 18 Active lancets (freestyle) 28 gauge miscIndications:T ype 2 diabetes mellitus with hyperglycemia, with long-term current use of insulin ([facility]) Use to test glucose 5 [...] long-term current use of insulin ([facility]) Change sensor every 14 days [...] long-term current use of insulin ([facility]) Inject 0.5ML(1.5MG total) under the [...] long-term current use of insulin ([facility]) Use to inject insulin 4x/day [...] 12/09/2019 Assessment & Plan (09/03/2023 9:28 AM DRY HOUSE OPERATOR): Chronic problem. HD [facility] in [place]: //Saturdays. LUE fistula. Assessment & Plan (03/05/2023 9:59 AM CDT): Chronic problem. HD [facility] in [place]: //Saturdays. LUE fistula. Hyperlipidemia associated with type 2 diabetes fouzia victoria 05/22/2019 Assessment & Plan (11/24/2024 10:10 AM DRY HOUSE OPERATOR): Chronic problem. Controlled on current Atorvastatin 20mg. Last lipid panel: 03/03/24 LDL=33, TG=75. Assessment & Plan (03/03/2024 8:45 AM CDT): Chronic problem. Controlled on current Atorvastatin 20mg. Last lipid panel: 03/05/23 LDL=57, RY=214. Will update labs today. Does not mychart. Verified phone #/address to contact re: results. Assessment & Plan (09/03/2023 9:28 AM DRY HOUSE OPERATOR): Chronic problem. Controlled on current Atorvastatin 20mg. Last lipid panel: 03/05/23 LDL=57, ZY=560. Assessment & Plan (03/05/2023 9:53 AM CDT): Chronic problem. Controlled on current Atorvastatin 20mg. Last lipid panel: 12/05/21 LDL=36, WR=015. Will update labs today. Verified phone #/address to contact re: results. Assessment & Plan (11/02/2022 2:47 PM DRY HOUSE OPERATOR): Chronic, well controlled Low fat Low [...] Lipitor Assessment & Plan (09/07/2020 2:26 PM DRY HOUSE OPERATOR): Goal of treatment , LDL cholesterol [...] panel Assessment & Plan (12/09/2019 2:03 PM DRY HOUSE OPERATOR): Very high TG Add Vascepa Assessment [...] statin therapy Coronary artery disease invo lving [place] coronary artery of [place] heart without angina pectoris 10/04/2017 Hx of CABG 10/04/2017 Class 2 severe obesity due t o excess calories with serious comorbidity and body mass index (BMI) of 38.0 to 38.9 in adult 05/22/2017 Assessment & Plan (10/24/2018 12:58 PM DRY HOUSE OPERATOR): Making progress with diet efforts. Continue Assessment & Plan (02/08/2018 11:01 AM CDT): Importance of following diet and exercising discussed. Hypertension associated with diabetes 05/22/2017 Assessment & Plan (11/24/2024 10:11 AM DRY HOUSE OPERATOR): Chronic problem. Controlled on current losartan 100mg daily, amlodipine 10mg daily Assessment & Plan (03/03/2024 8:45 AM CDT): Chronic problem. BP elevated upon arrival. Controlled on current Carvedilol 25mg bid, losartan 100mg daily. No changes at this time. Will update labs today. Does not mychart. Verified phone #/address to contact re: results. Assessment & Plan (09/03/2023 9:28 AM DRY HOUSE OPERATOR): Chronic problem. BP elevated upon arrival. [...] renal Assessment & Plan (10/24/2018 12:57 PM DRY HOUSE OPERATOR): Controlled. Continue current medication plan and follow up with cardiology Assessment & Plan (06/18/2018 2:30 PM CDT): BP controlled on current medication plan. Continue follow up with nephrology Assessment & Plan (02/08/2018 11:00 AM CDT): Continue same medication Assessment & Plan (12/11/2017 10:24 AM DRY HOUSE OPERATOR): Goal blood pressure is less than [...] mellitus Assessment & Plan (11/24/2024 10:16 AM DRY HOUSE OPERATOR): Chronic problem, controlled on current regimen. 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 Assessment & Plan (09/03/2023 9:27 AM DRY HOUSE OPERATOR): Chronic problem, controlled on current regimen. 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 Assessment & Plan (03/05/2023 10:13 AM CDT): Chronic problem, controlled on current regimen. 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 Will update labs today. Verified phone #/address to contact re: results. Assessment & Plan (11/02/2022 2:43 PM DRY HOUSE OPERATOR): Well controlled, with risk of hypoglycemia [...] Ross Assessment & Plan (09/07/2020 2:26 PM DRY HOUSE OPERATOR): Hba1c was Lab Results Component Value [...] Trulicity. Assessment & Plan (12/09/2019 2:03 PM DRY HOUSE OPERATOR): Your Hba1c today was: Lab Results Component Value Date HGBA1C 9.3 12/09/2019 meaning a 3 month average sugar of : 224 Your goal hba1c is under 7.0 to prevent terminal operations supervisor diabetes complications ( eye , kidney and [...] hypoglycemia. Assessment & Plan (10/24/2018 1:00 PM DRY HOUSE OPERATOR): Stable BG pattern 100-140 reported since last adjustment to plan. No change today. BG goals reviewed. Advised to lower Lantus by 2 units if FBG are < 100 x 2 days/wk. For planned activity, reduce Humalog dose by 1/2 at preceding meal. Assessment & Plan (09/19/2018 11:11 AM DRY HOUSE OPERATOR): Your Hba1c today was: Lab Results [...] time. Assessment & Plan (12/11/2017 10:47 AM DRY HOUSE OPERATOR): Hba1c was .5.4 Today, 1800 calorie, [...] 05/22/2019 Assessment & Plan (09/19/2018 11:20 AM DRY HOUSE OPERATOR): Prevention and treatment of hypoglycemia were [...] therapy Assessment & Plan (10/24/2018 12:57 PM DRY HOUSE OPERATOR): Check lipid panel Assessment & Plan (06/18/2018 2:31 PM CDT): Continue statin therapy Assessment & Plan (02/08/2018 11:00 AM CDT): Continue atorvastatin Assessment & Plan (12/11/2017 10:45 AM DRY HOUSE OPERATOR): Goal of treatment , LDL cholesterol [...] pur e alcohol) [facility] [employer] Answer Date Recorded In the past 12 months has [employer], gas, oil, or water [employer] threatened to shut off services in your [...] any clubs o r organizations such as mosque groups, unions, fraternal or athletic groups, or [...] time in the past [address] [facility], were you homeless or living [...] on file Legal Sex Male 7:27 PM DRY HOUSE OPERATOR Gender Identity Not on file Sexual Orientation Not on file Last Filed Vital Signs Vital Sign Reading Time Taken Comments Blood Pressure 102/58 11/24/2024 9:58 AM DRY HOUSE OPERATOR Pulse 75 11/24/2024 9:58 AM DRY HOUSE OPERATOR Temperature 36.3 C (97.3 F) 10/25/2024 2:15 PM DRY HOUSE OPERATOR Respiratory Rate 20 11/24/2024 9:58 AM DRY HOUSE OPERATOR Oxygen Saturation 100% 10/25/2024 1:15 PM DRY HOUSE OPERATOR Inhaled Oxygen Concentration - - Weight 91.3 kg (201 lb 4.5 oz) 10/22/2024 8:29 P M DRY HOUSE OPERATOR Height 170.2 cm (5' 7.01) 11/24/2024 9:58 AM CS T Body Mass Index 31.52 10/22/2024 8:29 PM DRY HOUSE OPERATOR Plan of Treatment Not on file Medical Devices Implanted Type Area Refrigerating Engineer Device Identifier Shelf Expiration Date Model / Serial / Lot Med[employer]onic Inc Micra 2 Av Synchronous Leadless Ventricular Pacemaker [id number] - [id number] - [id number] Implanted:Qty: 1 on 10/24/2024 by Darien Jamil Jr., MD at [facility] [employer] 02/16/2026 [id number] / [id number] / Procedures Procedure Name Priority Date/Time Associated Diagnosis Comments DEVICE CHECK - IN OFFICE Routine 01/21/2025 9:26 AM CDT Cardiac pacemaker in situ Asystole (HCC) Syncope and collapse Symptomatic bradycardia POCT HEMOGLOBIN A1C Routine 11/24/2024 10:01 AM DRY HOUSE OPERATOR Type 2 diabetes mellitus with hyperglycemia, with long-term current use of insulin (CMS/HCC) EGFR Routine 10/25/2024 5:48 AM DRY HOUSE OPERATOR HEPATITIS PANEL, ACUTE Routine 10/23/2024 2:45 PM DRY HOUSE OPERATOR HM DIABETES EYE EXAM Routine 08/13/2024 [...] Read Routine (OP Routine) 12/05/2021 11:53 AM DRY HOUSE OPERATOR End stage renal disease (HCC) from [...] * POCT hemoglobin A1c (11/24/2024 10:01 AM DRY HOUSE OPERATOR) Hemoglobin A1C, POC 4.9 4.0 - 5.6 % Blood 11/24/2024 10:0 1 AM DRY HOUSE OPERATOR Bertha Pinto NP POINT OF CARE TEST ORDERA BLES Final Result * (ABNORMAL) eGFR (10/25/2024 5:48 AM DRY HOUSE OPERATOR) eGFR 9(L) >=60 mL/min/1. 73 m2 [...] last reviewed 2021. Blood 10/25/2024 5:48 AM DRY HOUSE OPERATOR 10/25/2024 6:03 AM DRY HOUSE OPERATOR Raisa Scherer [employer] LAB BLOOD ORDERABLES Jeaneth l Result Performing Organization Address [facility] Co de Phone Number [facility] [address] [place] [address] * Hepatitis panel, acute Blood (10/23/2024 2:45 PM DRY HOUSE OPERATOR) Hep A IgM Nonreactive Nonreactive Comment: Interpretive Data: If Hep A IgM Ab is reported as Equivocal, a new sample should be drawn in two weeks for testing. Current interpretive data was last revised on 20. Hep B core IgM Nonreactive Nonreactive [facility] Comment: Interpretive Data If HepB Core IgM Ab is reported as Equivocal, a new sample should be drawn in two weeks for testing. Current interpretive data was last revised on 20. Hep C Ab Nonreactive Nonreactive [facility] Comment: Interpretive Data Nonreactive: Antibodies [...] revised on 2020. HepBsAg Nonreactive Nonreactive [facility] Blood 10/23/2024 2:45 PM DRY HOUSE OPERATOR 10/23/2024 2:46 PM DRY HOUSE OPERATOR Sherrill Christianson MD LAB MICROBIOLOGY - GENERAL ORDERABLES Final Result Performing Organization Address City/[facility]/ZIP Co de Phone Number [facility] [address] [employer] [place] [address] * (ABNORMAL) DIABETES EYE EXAM (08/13/2024 9:40 [...] LAB URINE ORDERABLES Jeaneth mari Result [facility] [address] Department [place] [address] * (ABNORMAL) Lipid panel (03/03/2024 9:29 AM [...] AM CDT 03/03/2024 4:40 PM CDT us Betrha Pinto NP LAB BLOOD ORDERABLES Jeaneth mari Result [facility] [address] Department [place] [address] * CT Abdomen Pelvis WO Contrast (12/05/2021 11:53 AM DRY HOUSE OPERATOR) Anatomical Region Laterality Modality Body N/A Computed Tomogra phy 12/05/2021 12:0 4 PM DRY HOUSE OPERATOR Impressions 12/05/2021 12:04 PM DRY HOUSE OPERATOR Bone windows show no suspicious lytic or blastic lesions. IMPRESSION: 1. 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 2. 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 Electronically signed by: Ryan Cameron M.D. Narrative 12/05/2021 12:04 PM DRY HOUSE OPERATOR EXAMINATION: Computed tomography of the abdomen/pelvis [...] adeniform shape. There is atrophy of both [place] kidneys. Adjacent fat stranding is likely related [...] adeniform shape. There is atrophy of both [place] kidneys. Adjacent fat stranding is likely related [...] LIFE MEDICARE MEDICARE FOR LIFE Care Teams Welder First Class Relationship Specialty Start Date End Date Mariza Carrion MD [address] [facility] [address] [place] [address] PCP - General Family Practice 03/05/23 Efren Hoyos MD Referring Physician Ophthalmology 06/16/19 Dank Hicks MD [address] [facility] [address] [place], [place] [id number] Consulting Physician Cardiology 10/11/21
--- OUTSIDE RECORDS SUMMARY | 2025-04-09 21:52 | XMS_ITS | CONTINUITY OF CARE DOCUMENT ---
Author Name milly atkins Address Unknown Organization [facility] Address [address] [facility] [address] [address] [place] [address] Phone [phone] Care Team Providers Care President Finance Company Name Role Phone Kostas Pelaez MD Unavailable Kostas Pelaez MD Unavailable [phone] PROBLEMS Condition Status Date Provider Notes S/P Single chamb PCM Micra - Medtronic ( MRI safe) active Tonie Garay INSURANCE PROVIDERS Payer name Policy type / Coverage type Augustin red green party ID [employer] [place] [id number] [place] Medicare [id number]
[2025-04-09] MEDS: PANTOPRAZOLE SODIUM IV 40 MG VIAL IV PUSH (22:01)
[2025-04-09] MEDS: HYDROcodone/acetaminophen (*CRX) 5-325 MG TABLET 1 TAB PO (23:22)
[2025-04-10] VITALS (18 sets, daily range): BP systolic 108–168; BP diastolic 52–76; PULSE 66–85; RESP 15–18; TEMP 36.2–36.8; O2SAT 92–100; BMI 28.2
--- NOTE | 2025-04-10 02:00 | PC.NURSE ---
This RN moved pt from ER stretcher to hospital bed at this time. Depend changed. Call light within reach. Explained to pt he is boarded in ER and awaiting bed placement. No further questions at this time.
[2025-04-10 03:25] LABS: Hematocrit 24.1 % (42.0-52.0); Hemoglobin 7.2 g/dL (14.0-18.0)
--- NOTE | 2025-04-10 04:30 | PC.NURSE ---
0430 - This RN checked pt POC glucose at bedside. BG 76mg/dL. Hospitalist Dr. Leo consulted. Physician states she would put in hypoglycemia protocol incase glucose drops below 65, but was comfortable with patient glucose at this time d/t hx of dialysis. No further orders at this time.
[2025-04-10 04:32] LABS: Glucose Point of Care 77 mg/dl (65-105)
[2025-04-10] MEDS: TUBING, BLOOD PLUM PUMP TUBING 1 EACH XX (05:12)
[2025-04-10] MEDS: HYDROcodone/acetaminophen (*CRX) 5-325 MG TABLET 1 TAB PO ×2 (05:12→21:45)
[2025-04-10] MEDS: SODIUM CHLORIDE 0.9% IV 250 ML 30 ML IV CONT (05:12)
--- NOTE | 2025-04-10 05:47 | P.HP_ITS ---
H&P: HPI History of Present Illness Date/Time: 04/10/25 05:47 Chief Complaint: Blood clot in his depends Narrative: 79-year-old male with an extensive past medical history including, but not limited to, end-stage renal disease on hemodialysis Sunday, insulin-dependent diabetes mellitus, essential hypertension, paroxysmal atrial fibrillation on chronic anticoagulation with Eliquis, peripheral artery disease, obstructive sleep apnea and COPD who presented to the ER due to bleeding from his rectum. Patient reported he went to dialysis today and they had difficulty getting the bleeding stops from his fistula. Then when he got home he had a bowel movement and is dependence and past blood. When his in the ER patient passed 2 more bowel movement that were melenic in nature and guaiac positive. The patient reports that he although chronically ill-appearing has been feeling in his usual state of health. He states he has been participating in physical therapy. Simply today after his dialysis treatment they had difficulty stopping the bleeding in his fistula. Then after returning to the detention he was noted to have bloody stool in his depends. ER provider reported the patient then had a recurrent melenic stool moderate-sized in the ER. Patient denied any abdominal pain or discomfort. He has not had any recorded fevers. His only complaint at the time of my evaluation was that he would like something to eat drink and that he was missing his home CPAP. It had previously been documented that the patient was intolerant to CPAP but he stated he was not using his home CPAP/BiPAP due to recall on the device and was unable to get new equipment at home. He states that he has been compliant with his device since he has been placed in the [facility] facility. He still has pain in his right heel decubitus ulcer but the wound itself is stable. He denies any increased shortness of breath or chest pain. He denies any nausea or vomiting. He reports a fair appetite. He denies any GERD or dyspepsia. He has not had any vomiting. The patient was a relatively good historian during this hospital ER visit. Evaluated the patient in the ER while he was awaiting bed placement on the floor due to telemetry availability limits. Review of Systems 2 Review of Systems: 12 systems were reviewed with pertinent positives and negatives per HPI. Except as documented in the HPI, all other systems were reviewed and are negative. [facility] Past Medical History Medical History Chronic anticoagulation Insulin dependent type 2 diabetes mellitus (~2009) Chronic obstructive pulmonary disease Diabetic polyneuropathy Coronary artery disease Anemia Atrial fibrillation Chronic neck and back pain Insomnia History of nephrolithiasis Sinus pause (~09/2024) Obstructive sleep apnea Intolerant to CPAP Benign prostatic hyperplasia Peripheral vascular disease (~03/2023) Internal hemorrhoid, bleeding End-stage renal disease on hemodialysis DVT dialysis Sunday History of colon polyps Environmental allergies Vitamin D deficiency Dyslipidemia Essential (primary) hypertension Surgical History Surgical History History of cardiac pacemaker (~10/2024) Medtronic pacemaker placed due to symptomatic sinus pauses causing syncope performed at [facility] Status post cataract extraction of both eyes with insertion of intraocular lens History of colonoscopy with polypectomy History of hemorrhoidectomy (~01/12/24) Anorectal evaluation under anesthesia and excisional hemorrhoidectomy x3 12/14/23 SAW S/P peripheral artery angioplasty (~03/2023) status post balloon angioplasty of bilateral common and external iliac arteries status post left iliofemoral endarterectomy Arteriovenous fistula of left upper extremity (~2017) History of appendectomy (~1962) History of coronary artery bypass graft (~2013) Family History Family History Mother Diabetes mellitus Acute myocardial infarction Family history of congestive heart failure Father Hypertension Social History Social History (Updated 04/11/25 @ 02:22 by Alexandra Leo DO) Social History: The patient is . He and his brother live together prior to his hospitalization November or December 2024 and subsequent placement in to [facility]. He is retired after 26 years of serving in the [employer]. He has 4 children. He used to smoke 1.5-2 packs of cigarettes per day but quit smoking in approximately 2009. He will on a rare occasion drink an alcoholic beverage maybe 2 to 3 times a year. He denies illicit substance use. Surrogate medical decision maker: Wilian Morrissey, sibling. Code status: Full code. Caffeine- daily Smoking packs per day: 1.5 Smoking cigarettes per day: 30.0 Years smoked: 44 Smoking pack-years: 66.00 Smoking status: Former smoker Second hand tobacco smoke exposure: No Alcohol intake: unknown Alcohol use details: Maybe 2-3 per year Substance use: never Substance use type: does not use Do You Feel Safe in your Home?: No Lack of Transportation: YES Lack of Food: Never True Current Housing: I Have Housing Concerned About Future Housing: No Difficulty Paying Gas/Electric Bills: No Difficulty Paying for Meds: No Currently Unemployed: No Education: Don't Know Difficulty w/ Childcare or Family Care: No Living arrangements: with family Occupation/Education: retired Additional occupation/education comments: Retired from the [employer]. 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 Spiritual care concerns: No Agree to blood products: Yes Meds Home Medications and Allergies Home Medications ?Medication ?Instructions ?Recorded ?Confirmed ?Type aspirin 81 mg tablet,delayed 81 mg PO DAILY 10/31/21 04/10/25 History release carvedilol 25 mg tablet 25 mg PO BID 10/31/21 04/10/25 History insulin lispro 100 unit/mL 4 unit subcut .TIDAC 10/31/21 04/10/25 History subcutaneous pen loratadine 10 mg tablet (Claritin) 10 mg PO DAILY 10/31/21 04/10/25 History insulin glargine 100 unit/mL (3 6 unit subcut HS 11/07/23 04/10/25 History mL) subcutaneous pen (Lantus Solostar U-100 Insulin) cinacalcet 90 mg PO DAILY 12/12/23 04/10/25 History atorvastatin 20 mg tablet 20 mg PO HS 12/21/24 04/10/25 History finasteride 5 mg tablet (Proscar) 5 mg PO QAM #30 tabs 12/23/24 04/10/25 Rx furosemide 80 mg tablet 80 mg PO BID #60 tabs 12/23/24 04/10/25 Rx tamsulosin 0.4 mg capsule 0.4 mg PO QHS #30 caps 12/23/24 04/10/25 Rx acetaminophen 325 mg tablet 650 mg (2 x 325 mg) PO Q4H PRN 01/10/25 04/10/25 Rx Mild Pain (1-3) Or Fever #60 tabs pentoxifylline 400 mg 400 mg PO QPM 01/29/25 04/10/25 History tablet,extended release amlodipine 10 mg tablet 10 mg PO DAILY 02/16/25 04/10/25 History bisacodyl 10 mg rectal suppository 10 mg RECTAL DAILY PRN constipation 02/16/25 04/10/25 History (Laxative (bisacodyl)) gabapentin 100 mg capsule 100 mg PO TID 02/16/25 04/10/25 History liraglutide 0.6 mg/0.1 mL (18 mg/3 1.2 mg subcut HS 02/16/25 04/10/25 History mL) subcutaneous pen injector magnesium citrate (Citroma oral 296 ml PO .AM PRN constipation 02/16/25 04/10/25 History solution) magnesium hydroxide 400 mg/5 mL 30 ml PO HS PRN constipation 02/16/25 04/10/25 History oral suspension (Milk of Magnesia) sodium phosphates 19 gram-7 118 ml RECTAL DAILY PRN 02/16/25 04/10/25 History gram/118 mL enema (Fleet Enema) constipation vitamin B complex 1 cap PO DAILY 02/16/25 04/10/25 History ipratropium 20 mcg-albuterol 100 1 puff inhalation Q6H PRN 03/10/25 04/10/25 History mcg/actuation mist for inhalation shortness of breath or wheezing (Combivent Respimat) loperamide 2 mg capsule 2 mg PO Q4H PRN loose stool 03/10/25 04/10/25 History melatonin 3 mg tablet 3 mg PO HS 03/10/25 04/10/25 History tramadol 50 mg tablet 50 mg PO BID 03/10/25 04/10/25 History umeclidinium 62.5 mcg/actuation 1 inh inhalation DAILY 03/10/25 04/10/25 History blister powder for inhalation (Incruse Ellipta) levalbuterol HCl 0.63 mg/3 mL 0.63 mg (3 mL) inhalation Q6H PRN 03/19/25 04/10/25 Rx solution for nebulization shortness of breath or wheezing #90 mL levalbuterol HCl 1.25 mg/3 mL 0.63 mg (1.512 mL) inhalation 03/19/25 04/10/25 Rx solution for nebulization Q6HRT #30 vials sevelamer carbonate 0.8 gram oral 0.8 g PO TIDWM #60 grams 03/19/25 04/10/25 Rx powder packet apixaban 2.5 mg tablet (Eliquis) 2.5 mg PO Q12HR #60 tabs 03/27/25 04/10/25 Rx Allergies Allergy/AdvReac Type Severity Reaction Status Date / Time baclofen Allergy Severe encephalopa Verified 04/10/25 14:15 thy Vital Signs Vital Signs - 24 hr 04/09/25 19:56 04/10/25 00:39 04/10/25 03:32 Temperature 98.0 F Pulse Rate 77 75 77 Respiratory Rate 20 16 16 Blood Pressure 150/60 H 154/72 H 145/62 H Pulse Oximetry 100 94 97 Oxygen Delivery Room Air 04/10/25 03:50 04/10/25 04:06 04/10/25 05:06 Temperature 98.0 F 98.0 F 97.8 F Pulse Rate 78 76 74 Respiratory Rate 17 17 15 Blood Pressure 129/59 L 133/60 142/56 H Pulse Oximetry 99 100 95 Oxygen Delivery Exam 2 Narrative: Weight 81 kg BMI 28 Const: Other: Overweight, chronically ill-appearing but no acute distress HENMT: Other: Head is normocephalic atraumatic, mucous membranes are tacky, no oral pharyngeal erythema, crowded posterior oropharynx Eyes: Other: Positive conjunctival pallor, no scleral icterus Neck: Other: No lymphadenopathy, trachea midline nontender Resp: Other: Clear to auscultation bilaterally, no increased work of breathing Cardio: Other: Irregularly irregular, rate controlled, 2+ bilateral radial and pedal pulses, no JVD Skin: Other: Scattered bruising on the dorsum of bilateral arms, bandage over the left upper extremity AV fistula site bandage clean dry and intact unstageable decubitus ulcer to the right heel with overlying eschar Neuro: Other: Alert oriented x3, speech is clear, no facial asymmetry, no localizing neurologic deficits noted during the course of conversation patient moves bilateral upper and lower extremities with no gross motor deficits noted Extrem: Other: No cyanosis, chronic decubitus wound to the right heel with overlying eschar as mentioned above, 5/5 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000 Band Neutrophils % Not Reportable Nucleated RBC % 0.0 Platelet Estimate Adequate Hypochromasia 1+ Anisocytosis 1+ Ovalocytes 1+ Schistocytes None seen PT 17.7 H INR 1.5 APTT 43.6 H Sodium 132 L Potassium 4.4 Chloride 91 L Carbon Dioxide 33 H Anion Gap 8 BUN 27 H D Creatinine 3.61 H Estim Creat Clear Calc 15 Estimated GFR 16 L Glucose 113 H POC Capillary Glucose 77 Calcium 8.3 L Total Bilirubin 0.3 AST 18 ALT 12 Alkaline Phosphatase 56 Total Protein 6.1 L Albumin 3.6 Blood Type O Positive Antibody Screen Negative Crossmatch See Detail Assessment and Plan Assessment and plan (1) GI (gastrointestinal bleed): Qualifiers: GI bleed type/associated pathology: melena Qualified Code(s): K92.1 - Melena Code(s): K92.2 - Gastrointestinal hemorrhage, unspecified Status: Acute (2) Acute on chronic anemia: Code(s): D64.9 - Anemia, unspecified Status: Acute (3) Insulin dependent type 2 diabetes mellitus: Onset Date: ~2009 Code(s): E11.9 - Type 2 diabetes mellitus without complications; Z79.4 - correction (current) use of insulin Status: Acute (4) End-stage renal disease on hemodialysis: Code(s): N18.6 - End stage renal disease; Z99.2 - Dependence on renal dialysis Status: Acute Plan Patient presents with acute on chronic anemia and active rectal bleeding with melenic stools. Patient been started on Protonix IV will increase dosing to q.12 hours. GI has been consulted. Will monitor serial H&Hs. Hemoglobin has been trending downward so 1 unit packed red blood cells have been ordered. Will repeat CBC post transfusion. Patient is NPO except meds until evaluated by GI. Patient is not on GI prophylaxis at home. Lower GI bleed less likely given the appearance of stool. Patient is on Eliquis at home which is been held. Patient received dialysis Sunday. If hospitalized tomorrow will require nephrology consult for dialysis management. Will resume patient's home Lasix and antihypertensives. Currently vitals are stable in patient appears euglycemic. Patient is diabetic and is currently euglycemic. Will check Accu-Cheks q.6 hours while NPO and provide hypoglycemia protocol as needed. Patient has been admitted as observation status. MEDICAL DECISION MAKING NARRATIVE current -Spoke with the ED provider in detail regarding patient's evaluation, workup and management -Patient seen and examined at bedside -Collaborated with patient's nurse at the bedside in detail and addressed all concerns -Labs, electrolytes, radiology, investigations and test results reviewed -ED/Consult/Nursing/Ancilliary notes on the chart reviewed and appreciated -Spoke with patient/family at the bedside and all questions answered. Quality VTE Prophylaxis VTE prophylaxis: mechanical ordered (SCDs) Hospitalist MIPS Advance Care Plan I have confirmed that the patient's Advanced Care Plan is present, code status is documented, or surrogate decision maker is listed in patient medical record.: Yes Medication Reconciliation I have utilized all available resources to obtain, update and review the patients current medications (includes all prescriptions, OTC, herbals, cannabis, and nutritional supplements).: Yes
[2025-04-10 06:05] LABS: Glucose Point of Care 79 mg/dl (65-105)
[2025-04-10 06:08] LABS: Hematocrit 27.7 % (42.0-52.0); Hemoglobin 8.3 g/dL (14.0-18.0)
[2025-04-10 06:26] LABS: Albumin Level 3.3 g/dL (3.5-5.1); Anion Gap 8 mmol/L (4-12); Blood Urea Nitrogen 31 mg/dL (9-20); Calcium 8.2 mg/dL (8.4-10.2); Carbon Dioxide 31 mmol/L (22-30); Chloride 93 mmol/L (98-107); Estimated CRCL calculation 14 ml/min; Estimated Glomerular Filt Rate 15; Glucose 77 mg/dL (65-110); Phosphorus 4.1 mg/dL (2.5-4.5); Potassium 4.4 mmol/L (3.4-5.0); Sodium 132 mmol/L (137-145)
[2025-04-10 07:21] LABS: Glucose Point of Care 79 mg/dl (65-105)
--- NOTE | 2025-04-10 07:51 | PC.NURSE ---
this RN called Dr. Jesus to ask if he would be doing a colonoscopy on the pt due to seeing the mag citrate order. Ann Marie confirmed and said to only give the pt his PO meds that are related to his BP and cardiovascular system.
--- NOTE | 2025-04-10 08:34 | PC.NURSE ---
mag citrate was given late due to pharmacy not sending it. this RN called about it and was told they would send it soon
[2025-04-10] MEDS: MAGNESIUM CITRATE 300 ML BTL PO (08:56)
[2025-04-10] MEDS: PANTOPRAZOLE SODIUM IV 40 MG VIAL IV PUSH (08:57)
[2025-04-10] MEDS: carvediloL 25 MG TABLET PO ×2 (08:58→21:46)
[2025-04-10] MEDS: amLODIPine BESYLATE 10 MG TABLET PO (08:58)
[2025-04-10] MEDS: UMECLIDINIUM BROMIDE 62.5 MCG ELLIPTA 1 PUFF INHALATION (08:59)
--- NOTE | 2025-04-10 10:58 | PC.NURSE ---
talked to Ortiz from GI lab at 1055 to give report. Ortiz let this RN know that the pt is at the bottom of the list for his procedures
[2025-04-10 14:07] LABS: Glucose Point of Care 77 mg/dl (65-105)
[2025-04-10] MEDS: SODIUM CHLORIDE 0.9% IV 500 ML 10 ML IV CONT (14:12)
--- NOTE | 2025-04-10 14:26 | SUR.PREOP ---
Multiple skin issues noted. Bandages over multiple wounds. See ER nursing notes for documentation.
--- NOTE | 2025-04-10 14:57 | WPDANESEPPF ---
Anes - Initial Pre Proc Eval Procedure: Operation Date: 04/10/25 15:30 Proposed Procedures p Esophagogastroduodenoscopy - Donnell Jesus MD s Sigmoidoscopy - Donnell Jesus MD Date/Time: 04/10/25 14:57 Surgeon: Alexandra Leo DO Pre Op Diagnosis: GI Bleed Patient Data Age: 79 Gender: M Height: 1.7 m Weight: 81 kg Last Vital Signs Temp 98.0 F 04/10/25 14:18 Pulse 71 04/10/25 14:18 Resp 18 04/10/25 14:18 BP 132/63 04/10/25 14:18 Pulse Ox 92 04/10/25 14:18 O2 Del Method Room Air 04/10/25 14:18 Allergies Allergy/AdvReac Type Severity Reaction Status Date / Time baclofen Allergy Severe encephalopa Verified 04/10/25 14:15 thy Home Medications ?Medication ?Instructions ?Recorded ?Confirmed ?Type aspirin 81 mg tablet,delayed 81 mg PO DAILY 10/31/21 04/10/25 History release carvedilol 25 mg tablet 25 mg PO BID 10/31/21 04/10/25 History insulin lispro 100 unit/mL 4 unit subcut .TIDAC 10/31/21 04/10/25 History subcutaneous pen loratadine 10 mg tablet (Claritin) 10 mg PO DAILY 10/31/21 03/23/25 History insulin glargine 100 unit/mL (3 6 unit subcut HS 11/07/23 04/10/25 History mL) subcutaneous pen (Lantus Solostar U-100 Insulin) cinacalcet 90 mg PO DAILY 12/12/23 04/10/25 History atorvastatin 20 mg tablet 20 mg PO HS 12/21/24 04/10/25 History finasteride 5 mg tablet (Proscar) 5 mg PO QAM #30 tabs 12/23/24 04/10/25 Rx furosemide 80 mg tablet 80 mg PO BID #60 tabs 12/23/24 04/10/25 Rx tamsulosin 0.4 mg capsule 0.4 mg PO QHS #30 caps 12/23/24 04/10/25 Rx acetaminophen 325 mg tablet 650 mg (2 x 325 mg) PO Q4H PRN 01/10/25 04/10/25 Rx Mild Pain (1-3) Or Fever #60 tabs pentoxifylline 400 mg 400 mg PO QPM 01/29/25 04/10/25 History tablet,extended release amlodipine 10 mg tablet 10 mg PO DAILY 02/16/25 04/10/25 History bisacodyl 10 mg rectal suppository 10 mg RECTAL DAILY PRN constipation 02/16/25 04/10/25 History (Laxative (bisacodyl)) gabapentin 100 mg capsule 100 mg PO TID 02/16/25 04/10/25 History liraglutide 0.6 mg/0.1 mL (18 mg/3 1.2 mg subcut HS 02/16/25 04/10/25 History mL) subcutaneous pen injector magnesium citrate (Citroma oral 296 ml PO .AM PRN constipation 02/16/25 04/10/25 History solution) magnesium hydroxide 400 mg/5 mL 30 ml PO HS PRN constipation 02/16/25 04/10/25 History oral suspension (Milk of Magnesia) sodium phosphates 19 gram-7 118 ml RECTAL DAILY PRN 02/16/25 04/10/25 History gram/118 mL enema (Fleet Enema) constipation vitamin B complex 1 cap PO DAILY 02/16/25 04/10/25 History ipratropium 20 mcg-albuterol 100 1 puff inhalation Q6H PRN 03/10/25 04/10/25 History mcg/actuation mist for inhalation shortness of breath or wheezing (Combivent Respimat) loperamide 2 mg capsule 2 mg PO Q4H PRN loose stool 03/10/25 04/10/25 History melatonin 3 mg tablet 3 mg PO HS 03/10/25 04/10/25 History tramadol 50 mg tablet 50 mg PO BID 03/10/25 04/10/25 History umeclidinium 62.5 mcg/actuation 1 inh inhalation DAILY 03/10/25 04/10/25 History blister powder for inhalation (Incruse Ellipta) levalbuterol HCl 0.63 mg/3 mL 0.63 mg (3 mL) inhalation Q6H PRN 03/19/25 04/10/25 Rx solution for nebulization shortness of breath or wheezing #90 mL levalbuterol HCl 1.25 mg/3 mL 0.63 mg (1.512 mL) inhalation 03/19/25 04/10/25 Rx solution for nebulization Q6HRT #30 vials sevelamer carbonate 0.8 gram oral 0.8 g PO TIDWM #60 grams 03/19/25 04/10/25 Rx powder packet apixaban 2.5 mg tablet (Eliquis) 2.5 mg PO Q12HR #60 tabs 03/27/25 04/10/25 Rx Laboratory Tests 04/09/25 04/10/25 04/10/25 20:23 01:28 04:29 WBC 5.7 K/mm3 (4.5-10.0) RBC 2.91 L M/mm3 (4.6-6.20) Hgb 7.7 L g/dL 7.2 L g/dL (14.0-18.0) (14.0-18.0) Hct 26.2 L % 24.1 L % (42.0-52.0) (42.0-52.0) MCV 90.0 fl (80-100) MCH 26.5 pg (26-34) MCHC 29.4 L g/dl (32-36) RDW 20.0 H % (11.5-14.5) Plt Count 230 k/mm3 (150-375) MPV 10.5 H fl (7.4-10.4) Immature Gran % (Auto) 0.4 % (0-0.5) Neut % (Auto) 76.0 H % (45.5-73.1) Lymph % (Auto) 9.5 L % (18.3-44.2) Dillon % (Auto) 11.4 H % (2.6-8.5) Eos % (Auto) 1.8 % (0-4.4) Baso % (Auto) 0.9 % (0.2-1.2) Lymph # (Auto) 0.54 L K/mm3 (0.9-3.2) Dillon # (Auto) 0.7 H K/mm3 (0.1-0.6) Eos # (Auto) 0.1 K/mm3 (0-0.3) Baso # (Auto) 0.1 K/mm3 (0.0-0.1) Abs Immat Gran (auto) 0.02 K/mm3 (0.00-0.031) Absolute Neuts (auto) 4.3 K/mm3 (1.3-6.7) Absolute Nucleated RBC 0.000 K/mm3 (0.0-0.012) Band Neutrophils % Not Reportable Nucleated RBC % 0.0 % (0.0-0.2) Platelet Estimate Adequate (Adequate) Hypochromasia 1+ Anisocytosis 1+ Ovalocytes 1+ Schistocytes None seen PT 17.7 H Seconds (11.1-14.7) INR 1.5 APTT 43.6 H Seconds (22.3-36.8) Sodium 132 L mmol/L (137-145) Potassium 4.4 mmol/L (3.4-5.0) Chloride 91 L mmol/L (98-107) Carbon Dioxide 33 H mmol/L (22-30) Anion Gap 8 mmol/L (4-12) BUN 27 H D mg/dL (9-20) Creatinine 3.61 H mg/dL (0.7-1.3) Estim Creat Clear Calc 15 ml/min Estimated GFR 16 L (59 - ) Glucose 113 H mg/dL (65-110) POC Capillary Glucose 77 mg/dl (65-105) Calcium 8.3 L mg/dL (8.4-10.2) Phosphorus Total Bilirubin 0.3 mg/dL (0.2-1.3) AST 18 U/L (17-59) ALT 12 U/L (6-50) Alkaline Phosphatase 56 U/L (38-126) Total Protein 6.1 L g/dL (6.3-8.2) Albumin 3.6 g/dL (3.5-5.1) Blood Type O Positive Antibody Screen Negative Crossmatch See Detail 04/10/25 04/10/25 04/10/25 05:53 06:01 07:19 WBC RBC Hgb 8.3 L g/dL (14.0-18.0) Hct 27.7 L % (42.0-52.0) MCV MCH MCHC RDW Plt Count MPV Immature Gran % (Auto) Neut % (Auto) Lymph % (Auto) Dillon % (Auto) Eos % (Auto) Baso % (Auto) Lymph # (Auto) Dillon # (Auto) Eos # (Auto) Baso # (Auto) Abs Immat Gran (auto) Absolute Neuts (auto) Absolute Nucleated RBC Band Neutrophils % Nucleated RBC % Platelet Estimate Hypochromasia Anisocytosis Ovalocytes Schistocytes PT INR APTT Sodium 132 L mmol/L (137-145) Potassium 4.4 mmol/L (3.4-5.0) Chloride 93 L mmol/L (98-107) Carbon Dioxide 31 H mmol/L (22-30) Anion Gap 8 mmol/L (4-12) BUN 31 H mg/dL (9-20) Creatinine 3.92 H mg/dL (0.7-1.3) Estim Creat Clear Calc 14 ml/min Estimated GFR 15 L (59 - ) Glucose 77 mg/dL (65-110) POC Capillary Glucose 79 mg/dl 79 mg/dl (65-105) (65-105) Calcium 8.2 L mg/dL (8.4-10.2) Phosphorus 4.1 mg/dL (2.5-4.5) Total Bilirubin AST ALT Alkaline Phosphatase Total Protein Albumin 3.3 L g/dL (3.5-5.1) Blood Type Antibody Screen Crossmatch 04/10/25 14:04 WBC RBC Hgb Hct MCV MCH MCHC RDW Plt Count MPV Immature Gran % (Auto) Neut % (Auto) Lymph % (Auto) Dillon % (Auto) Eos % (Auto) Baso % (Auto) Lymph # (Auto) Dillon # (Auto) Eos # (Auto) Baso # (Auto) Abs Immat Gran (auto) Absolute Neuts (auto) Absolute Nucleated RBC Band Neutrophils % Nucleated RBC % Platelet Estimate Hypochromasia Anisocytosis Ovalocytes Schistocytes PT INR APTT Sodium Potassium Chloride Carbon Dioxide Anion Gap BUN Creatinine Estim Creat Clear Calc Estimated GFR Glucose POC Capillary Glucose 77 mg/dl (65-105) Calcium Phosphorus Total Bilirubin AST ALT Alkaline Phosphatase Total Protein Albumin Blood Type Antibody Screen Crossmatch Patient hx anesthesia problems: none Family hx anesthesia problems: none Results Review: All pre-operative results and documents have been reviewed as part of the pre-operative evaluation. [facility] Past Medical History Medical History Insulin dependent type 2 diabetes mellitus (~2009) Chronic obstructive pulmonary disease Diabetic polyneuropathy Coronary artery disease Anemia Atrial fibrillation Chronic neck and back pain Insomnia History of nephrolithiasis Sinus pause (~09/2024) Obstructive sleep apnea Intolerant to CPAP Benign prostatic hyperplasia Peripheral vascular disease (~03/2023) Internal hemorrhoid, bleeding End-stage renal disease on hemodialysis DVT dialysis Sunday History of colon polyps Environmental allergies Vitamin D deficiency Dyslipidemia Essential (primary) hypertension Surgical History Surgical History History of cardiac pacemaker (~10/2024) Medtronic pacemaker placed due to symptomatic sinus pauses causing syncope performed at [facility] Status post cataract extraction of both eyes with insertion of intraocular lens History of colonoscopy with polypectomy History of hemorrhoidectomy (~01/12/24) Anorectal evaluation under anesthesia and excisional hemorrhoidectomy x3 12/14/23 SAW S/P peripheral artery angioplasty (~03/2023) status post balloon angioplasty of bilateral common and external iliac arteries status post left iliofemoral endarterectomy Arteriovenous fistula of left upper extremity (~2017) History of appendectomy (~1962) History of coronary artery bypass graft (~2013) Family History Family History Mother Diabetes mellitus Acute myocardial infarction Family history of congestive heart failure Father Hypertension Social History Social History Social History: The patient is . He and his brother live together prior to his recent hospitalization and placement in to [facility]. He is retired after 26 years of serving in the [employer]. He has 4 children. He used to smoke 1.5-2 packs of cigarettes per day but quit smoking in approximately 2009. He will on a rare occasion drink an alcoholic beverage maybe 2 to 3 times a year. He denies illicit substance use. Surrogate medical decision maker: Wilian Finleyn, sibling. Code status: Full code. Caffeine- daily Smoking packs per day: 1.5 Smoking cigarettes per day: 30.0 Years smoked: 44 Smoking pack-years: 66.00 Smoking status: Unknown if ever smoked Second hand tobacco smoke exposure: No Alcohol intake: unknown Alcohol use details: Maybe 2-3 per year Substance use: unknown Substance use type: does not use Do You Feel Safe in your Home?: Yes Lack of Transportation: YES Lack of Food: Sometimes True Current Housing: I Have Housing Concerned About Future Housing: No Difficulty Paying Gas/Electric Bills: No Difficulty Paying for Meds: No Currently Unemployed: No Education: Don't Know Difficulty w/ Childcare or Family Care: No Living arrangements: with family Occupation/Education: retired Additional occupation/education comments: Retired from the [employer]. Spiritual care concerns: No Agree to blood products: Yes Anes - Evcarmen Final PreProcedure Day of Procedure 04/10/25 14:57 Patient weight: normal Heart: irregular rhythm Lungs: clear to auscultation Airway: Mallampati scale class III Neurological: alert and oriented Last oral intake: >/= 8 hours ASA classification: IV Emergent: no Anesthetic plan: proceed Anesthesia type and monitoring: general GIVS and standard monitoring Results Review: All pre-operative results and documents have been reviewed as part of the pre-operative evaluation. Informed Consent: The patient's anesthetic plan and its attendant risks and benefits were discussed with the patient/family/POA. Questions were solicited and answers provided to the satisfaction of the patient/family/POA.
--- NOTE | 2025-04-10 15:09 | PM.IMPN ---
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 Monitor H and H (2) Acute on chronic anemia: Code(s): D64.9 - Anemia, unspecified Status: Acute Assessment and Plan: Possibly due to lower GI bleeding Other contributing factor CKD Monitor H&H Transfuse if less than 7 (3) Insulin dependent type 2 diabetes mellitus: Onset Date: ~2009 Code(s): E11.9 - Type 2 diabetes mellitus without complications; Z79.4 - intermediate frame tender (current) use of insulin Status: Acute Assessment and Plan: Initiate sliding scale Hypoglycemic protocol (4) End-stage renal disease on hemodialysis: Code(s): N18.6 - End stage renal disease; Z99.2 - Dependence on renal dialysis Status: Acute Assessment and Plan: Dialysis as per Nephrology Subjective Date/time seen: 04/10/25 15:09 Interval history: Patient underwent EGD which did not show any ulcer. Patient has evidence of gastritis. Patient underwent colonoscopy. He resting comfortable and will undergo dialysis tomorrow Review of Systems Review of Systems: A 10 system review of systems was completed on the patient and is negative except for what is stated in the HPI. Nursing and ancillary documentation was reviewed. Objective Data Vital Signs Vital Signs: Vital Signs - 24 hr 04/09/25 19:56 04/10/25 00:39 04/10/25 03:32 Temperature 98.0 F Pulse Rate 77 75 77 Respiratory Rate 20 16 16 Blood Pressure 150/60 H 154/72 H 145/62 H Pulse Oximetry 100 94 97 Oxygen Delivery Room Air 04/10/25 03:50 04/10/25 04:06 04/10/25 05:06 Temperature 98.0 F 98.0 F 97.8 F Pulse Rate 78 76 74 Respiratory Rate 17 17 15 Blood Pressure 129/59 L 133/60 142/56 H Pulse Oximetry 99 100 95 Oxygen Delivery 04/10/25 05:50 04/10/25 06:20 04/10/25 07:00 Temperature 97.9 F 98.2 F Pulse Rate 73 73 77 Respiratory Rate 16 16 17 Blood Pressure 142/60 H 127/73 124/60 Pulse Oximetry 100 95 94 Oxygen Delivery 04/10/25 08:00 04/10/25 08:58 04/10/25 10:26 Temperature Pulse Rate 77 80 78 Respiratory Rate 16 18 Blood Pressure 147/70 H 139/67 Pulse Oximetry 96 98 Oxygen Delivery 04/10/25 12:22 04/10/25 14:18 Temperature 98.0 F Pulse Rate 75 71 Respiratory Rate 17 18 Blood Pressure 121/61 132/63 Pulse Oximetry 92 92 Oxygen Delivery Room Air Intake/Output Intake/Output: Intake & Output 04/07/25 04/08/25 04/09/25 04/10/25 23:59 23:59 23:59 23:59 Intake Total 600 Balance 600 Meds/Results Medications: Active Medications Generic Name Dose Route Start Last Admin Trade Name Freq PRN Reason Stop Dose Admin Acetaminophen 650 mg 04/10/25 05:35 Acetaminophen 325 Mg Tablet PO Q4H PRN Mild Pain (1-3) Or Fever Hydrocodone Bitart/Acetaminophen 1 tab 04/09/25 23:12 04/10/25 05:12 Hydrocodone/Acetaminophen (*Crx) 5-325 Mg Tablet PO 1 tab Q4H PRN Administration Pain Rated 4-6 Amlodipine Besylate 10 mg 04/10/25 09:00 04/10/25 08:58 Amlodipine Besylate 10 Mg Tablet PO 10 mg DAILY DAVID Administration Aspirin 81 mg 04/10/25 09:00 04/10/25 07:49 Aspirin 81 Mg Enteric Tablet PO Not Given DAILY DAVID Atorvastatin Calcium 20 mg 04/10/25 21:00 Atorvastatin 20 Mg Tablet PO HS DAVID Carvedilol 25 mg 04/10/25 09:00 04/10/25 08:58 Carvedilol 25 Mg Tablet PO 25 mg Q12HR DAVID Administration Cinacalcet 90 mg 04/10/25 09:00 04/10/25 07:49 Cinacalcet 30 Mg Tablet PO 05/10/25 08:59 Not Given DAILY DAVID Dextrose 12.5 gm 04/10/25 04:36 Dextrose 50% 25 Gm/50 Ml Syringe IV PUSH PRN PRN Hypoglycemia Protocol Finasteride 5 mg 04/10/25 09:00 04/10/25 07:49 Finasteride 5 Mg Tablet PO Not Given QAM DAVID Furosemide 80 mg 04/10/25 09:00 04/10/25 07:50 Furosemide 80 Mg Tablet PO Not Given BID DAVID Gabapentin 100 mg 04/10/25 09:00 04/10/25 13:54 Gabapentin 100 Mg Capsule PO Not Given TID DAVID Glucagon 1 mg 04/10/25 04:36 Glucagon For Inj 1 Mg Vial IM PRN PRN Hypoglycemia Protocol Glucose 15 gm 04/10/25 04:36 Glucose Oral Gel 15 Gm Of Glucse In 37.5 Gm Tube PO PRN PRN Hypoglycemia Protocol Dextrose 1,000 mls @ 100 mls/hr 04/10/25 04:36 Dextrose 5% 1,000 Ml IVPB PRN PRN Hypoglycemia Protocol Sodium Chloride 500 mls @ 10 mls/hr 04/10/25 13:55 04/10/25 14:12 Normal Saline Iv IV CONT 10 mls/hr .Q24H DAVID Administration Levalbuterol HCl 0.63 mg 04/10/25 05:52 Levalbuterol Neb 1.25 Mg/3 Ml INHALATION Q6HRT PRN shortness of breath or wheezing Melatonin 3 mg 04/10/25 21:00 Melatonin 3 Mg Tablet PO HS DAVID Ondansetron HCl 4 mg 04/09/25 23:12 Ondansetron Inj 4 Mg/2 Ml Vial IV PUSH Q4H PRN Nausea Pantoprazole Sodium 40 mg 04/10/25 09:00 04/10/25 08:57 Pantoprazole Sodium Iv 40 Mg Vial IV PUSH 40 mg Q12HR DAVID Administration Pentoxifylline 400 mg 04/10/25 18:00 Pentoxifylline 400 Mg Tabcr PO QPM DAVID Sevelamer Carbonate 0.8 gm 04/10/25 08:00 04/10/25 12:00 Sevelamer Carbonate 0.8 Gm Oral Powder Packet PO Not Given TIDWM DAVID Tamsulosin HCl 0.4 mg 04/10/25 21:00 Tamsulosin Hcl 0.4 Mg Capsule PO QHS DAVID Tramadol HCl 50 mg 04/10/25 05:35 Tramadol Hcl (*Crx) 50 Mg Tablet PO BID PRN Pain 4-10 Umeclidinium Venus 1 puff 04/10/25 09:00 04/10/25 08:59 Umeclidinium Venus 62.5 Mcg Ellipta INHALATION 1 puff DAILY DAVID Administration Vitamin B Complex 1 cap 04/10/25 09:00 04/10/25 07:51 Vitamin B Complex Capsule PO Not Given DAILY [facility] Labs Labs: Laboratory Results - last 24 hr 04/09/25 04/10/25 04/10/25 20:23 01:28 04:29 WBC 5.7 RBC 2.91 L Hgb 7.7 L 7.2 L Hct 26.2 L 24.1 L MCV 90.0 MCH 26.5 MCHC 29.4 L RDW 20.0 H Plt Count 230 MPV 10.5 H Immature Gran % (Auto) 0.4 Neut % (Auto) 76.0 H Lymph % (Auto) 9.5 L Bland % (Auto) 11.4 H Eos % (Auto) 1.8 Baso % (Auto) 0.9 Lymph # (Auto) 0.54 L Bland # (Auto) 0.7 H Eos # (Auto) 0.1 Baso # (Auto) 0.1 Abs Immat Gran (auto) 0.02 Absolute Neuts (auto) 4.3 Absolute Nucleated RBC 0.000 Band Neutrophils % Not Reportable Nucleated RBC % 0.0 Platelet Estimate Adequate Hypochromasia 1+ Anisocytosis 1+ Ovalocytes 1+ Schistocytes None seen PT 17.7 H INR 1.5 APTT 43.6 H Sodium 132 L Potassium 4.4 Chloride 91 L Carbon Dioxide 33 H Anion Gap 8 BUN 27 H D Creatinine 3.61 H Estim Creat Clear Calc 15 Estimated GFR 16 L Glucose 113 H POC Capillary Glucose 77 Calcium 8.3 L Phosphorus Total Bilirubin 0.3 AST 18 ALT 12 Alkaline Phosphatase 56 Total Protein 6.1 L Albumin 3.6 Blood Type O Positive Antibody Screen Negative Crossmatch See Detail 04/10/25 04/10/25 04/10/25 05:53 06:01 07:19 WBC RBC Hgb 8.3 L Hct 27.7 L MCV MCH MCHC RDW Plt Count MPV Immature Gran % (Auto) Neut % (Auto) Lymph % (Auto) Bland % (Auto) Eos % (Auto) Baso % (Auto) Lymph # (Auto) Bland # (Auto) Eos # (Auto) Baso # (Auto) Abs Immat Gran (auto) Absolute Neuts (auto) Absolute Nucleated RBC Band Neutrophils % Nucleated RBC % Platelet Estimate Hypochromasia Anisocytosis Ovalocytes Schistocytes PT INR APTT Sodium 132 L Potassium 4.4 Chloride 93 L Carbon Dioxide 31 H Anion Gap 8 BUN 31 H Creatinine 3.92 H Estim Creat Clear Calc 14 Estimated GFR 15 L Glucose 77 POC Capillary Glucose 79 79 Calcium 8.2 L Phosphorus 4.1 Total Bilirubin AST ALT Alkaline Phosphatase Total Protein Albumin 3.3 L Blood Type Antibody Screen Crossmatch 04/10/25 14:04 WBC RBC Hgb Hct MCV MCH MCHC RDW Plt Count MPV Immature Gran % (Auto) Neut % (Auto) Lymph % (Auto) Bland % (Auto) Eos % (Auto) Baso % (Auto) Lymph # (Auto) Bland # (Auto) Eos # (Auto) Baso # (Auto) Abs Immat Gran (auto) Absolute Neuts (auto) Absolute Nucleated RBC Band Neutrophils % Nucleated RBC % Platelet Estimate Hypochromasia Anisocytosis Ovalocytes Schistocytes PT INR APTT Sodium Potassium Chloride Carbon Dioxide Anion Gap BUN Creatinine Estim Creat Clear Calc Estimated GFR Glucose POC Capillary Glucose 77 Calcium Phosphorus Total Bilirubin AST ALT Alkaline Phosphatase Total Protein Albumin Blood Type Antibody Screen Crossmatch Quality VTE Prophylaxis VTE prophylaxis: mechanical ordered (SCDs) Hospitalist MIPS Advance Care Plan I have confirmed that the patient's Advanced Care Plan is present, code status is documented, or surrogate decision maker is listed in patient medical record.: Yes Medication Reconciliation I have utilized all available resources to obtain, update and review the patients current medications (includes all prescriptions, OTC, herbals, cannabis, and nutritional supplements).: Yes
--- NOTE | 2025-04-10 15:26 | WPDGICN ---
Assessment and Plan Assessment and plan (1) GI (gastrointestinal bleed): Qualifiers: GI bleed type/associated pathology: melena Qualified Code(s): K92.1 - Melena Code(s): K92.2 - Gastrointestinal hemorrhage, unspecified Status: Acute Assessment and Plan: will proceed with egd and colonoscopy today, noted drop in h/h differential ulcer, avm, etc more recommendations after scope (2) Acute on chronic anemia: Code(s): D64.9 - Anemia, unspecified Status: Acute Assessment and Plan: keep about hgb>7 he has underlying anemia from renal failure (3) Rectal bleeding: Code(s): K62.5 - Hemorrhage of anus and rectum Status: Inactive (4) End stage renal disease: Code(s): N18.6 - End stage renal disease Status: Chronic Assessment and Plan: on dialysis (5) Peripheral vascular disease: Onset Date: ~03/2023 Code(s): I73.9 - Peripheral vascular disease, unspecified Status: Acute (6) Type 2 diabetes mellitus, with long-term current use of insulin: Qualifiers: Diabetes mellitus complication status: with neurologic complications Diabetes mellitus complication detail: with polyneuropathy Qualified Code(s): E11.42 - Type 2 diabetes mellitus with diabetic polyneuropathy; Z79.4 - lap cutter (current) use of insulin Code(s): E11.9 - Type 2 diabetes mellitus without complications; Z79.4 - lap cutter (current) use of insulin Status: Acute (7) Chronic anticoagulation: Code(s): Z79.01 - lap cutter (current) use of anticoagulants Status: Acute Assessment and Plan: on hold now GI Consult Note Consult date/time: 04/10/25 15:26 Reason for consult: rectal bleeding HPI: Sam Morrissey is a 79 year old male who stays in local correction with history of ESRD on dialysis, 10/2023 with GIB- egd mild gastritis and colonoscopy with large hemorrhoids then he underwent REUA with excisional hemorrhoidectomy x3 performed 12/11/[address] Lopez. Also history of insulin-dependent diabetes mellitus, essential hypertension, paroxysmal atrial fibrillation on chronic anticoagulation with Eliquis, peripheral artery disease with wound in Rt foot, obstructive sleep apnea and COPD who presented to the ER due to bleeding from his rectum. therapeutic support staff noted blood in stool and sent over here. He has chronic anemia and hgb 7.7 (baseline 9), denies abdominal pain, nausea or vomiting. Review of Systems Eyes: Eyes: Reports no additional eye complaints ENT: Reports Normal hearing present Cardiovascular: Cardiovascular: Denies chest pain Respiratory: Respiratory: Denies cough Gastrointestinal: Gastrointestinal: Denies abdominal pain and Reports hematochezia Genitourinary: Comments: on dialysis Musculoskeletal: Musculoskeletal: Denies neck pain Integumentary/Breasts: Comments: chronic wound rt heel Neurologic: Denies confusion Psychiatric: Psychiatric: Denies behavioral changes [facility] Past Medical History Medical History (Updated 04/10/25 @ 15:34 by Donnell eJsus MD) Chronic anticoagulation Insulin dependent type 2 diabetes mellitus (~2009) Chronic obstructive pulmonary disease Diabetic polyneuropathy Coronary artery disease Anemia Atrial fibrillation Chronic neck and back pain Insomnia History of nephrolithiasis Sinus pause (~09/2024) Obstructive sleep apnea Intolerant to CPAP Benign prostatic hyperplasia Peripheral vascular disease (~03/2023) Internal hemorrhoid, bleeding End-stage renal disease on hemodialysis DVT dialysis Sunday History of colon polyps Environmental allergies Vitamin D deficiency Dyslipidemia Essential (primary) hypertension Surgical History Surgical History History of cardiac pacemaker (~10/2024) Medtronic pacemaker placed due to symptomatic sinus pauses causing syncope performed at [facility] Status post cataract extraction of both eyes with insertion of intraocular lens History of colonoscopy with polypectomy History of hemorrhoidectomy (~01/12/24) Anorectal evaluation under anesthesia and excisional hemorrhoidectomy x3 12/14/23 SAW S/P peripheral artery angioplasty (~03/2023) status post balloon angioplasty of bilateral common and external iliac arteries status post left iliofemoral endarterectomy Arteriovenous fistula of left upper extremity (~2017) History of appendectomy (~1962) History of coronary artery bypass graft (~2013) Family History Family History Mother Diabetes mellitus Acute myocardial infarction Family history of congestive heart failure Father Hypertension Social History Social History Social History: The patient is . He and his brother live together prior to his recent hospitalization and placement in to [facility]. He is retired after 26 years of serving in the [employer]. He has 4 children. He used to smoke 1.5-2 packs of cigarettes per day but quit smoking in approximately 2009. He will on a rare occasion drink an alcoholic beverage maybe 2 to 3 times a year. He denies illicit substance use. Surrogate medical decision maker: Wilian Morrissey, sibling. Code status: Full code. Caffeine- daily Smoking packs per day: 1.5 Smoking cigarettes per day: 30.0 Years smoked: 44 Smoking pack-years: 66.00 Smoking status: Unknown if ever smoked Second hand tobacco smoke exposure: No Alcohol intake: unknown Alcohol use details: Maybe 2-3 per year Substance use: unknown Substance use type: does not use Do You Feel Safe in your Home?: Yes Lack of Transportation: YES Lack of Food: Sometimes True Current Housing: I Have Housing Concerned About Future Housing: No Difficulty Paying Gas/Electric Bills: No Difficulty Paying for Meds: No Currently Unemployed: No Education: Don't Know Difficulty w/ Childcare or Family Care: No Living arrangements: with family Occupation/Education: retired Additional occupation/education comments: Retired from the [employer]. Spiritual care concerns: No Agree to blood products: Yes Meds Home Medications and Allergies Home Medications ?Medication ?Instructions ?Recorded ?Confirmed ?Type aspirin 81 mg tablet,delayed 81 mg PO DAILY 10/31/21 04/10/25 History release carvedilol 25 mg tablet 25 mg PO BID 10/31/21 04/10/25 History insulin lispro 100 unit/mL 4 unit subcut .TIDAC 10/31/21 04/10/25 History subcutaneous pen loratadine 10 mg tablet (Claritin) 10 mg PO DAILY 10/31/21 03/23/25 History insulin glargine 100 unit/mL (3 6 unit subcut HS 11/07/23 04/10/25 History mL) subcutaneous pen (Lantus Solostar U-100 Insulin) cinacalcet 90 mg PO DAILY 12/12/23 04/10/25 History atorvastatin 20 mg tablet 20 mg PO HS 12/21/24 04/10/25 History finasteride 5 mg tablet (Proscar) 5 mg PO QAM #30 tabs 12/23/24 04/10/25 Rx furosemide 80 mg tablet 80 mg PO BID #60 tabs 12/23/24 04/10/25 Rx tamsulosin 0.4 mg capsule 0.4 mg PO QHS #30 caps 12/23/24 04/10/25 Rx acetaminophen 325 mg tablet 650 mg (2 x 325 mg) PO Q4H PRN 01/10/25 04/10/25 Rx Mild Pain (1-3) Or Fever #60 tabs pentoxifylline 400 mg 400 mg PO QPM 01/29/25 04/10/25 History tablet,extended release amlodipine 10 mg tablet 10 mg PO DAILY 02/16/25 04/10/25 History bisacodyl 10 mg rectal suppository 10 mg RECTAL DAILY PRN constipation 02/16/25 04/10/25 History (Laxative (bisacodyl)) gabapentin 100 mg capsule 100 mg PO TID 02/16/25 04/10/25 History liraglutide 0.6 mg/0.1 mL (18 mg/3 1.2 mg subcut HS 02/16/25 04/10/25 History mL) subcutaneous pen injector magnesium citrate (Citroma oral 296 ml PO .AM PRN constipation 02/16/25 04/10/25 History solution) magnesium hydroxide 400 mg/5 mL 30 ml PO HS PRN constipation 02/16/25 04/10/25 History oral suspension (Milk of Magnesia) sodium phosphates 19 gram-7 118 ml RECTAL DAILY PRN 02/16/25 04/10/25 History gram/118 mL enema (Fleet Enema) constipation vitamin B complex 1 cap PO DAILY 02/16/25 04/10/25 History ipratropium 20 mcg-albuterol 100 1 puff inhalation Q6H PRN 03/10/25 04/10/25 History mcg/actuation mist for inhalation shortness of breath or wheezing (Combivent Respimat) loperamide 2 mg capsule 2 mg PO Q4H PRN loose stool 03/10/25 04/10/25 History melatonin 3 mg tablet 3 mg PO HS 03/10/25 04/10/25 History tramadol 50 mg tablet 50 mg PO BID 03/10/25 04/10/25 History umeclidinium 62.5 mcg/actuation 1 inh inhalation DAILY 03/10/25 04/10/25 History blister powder for inhalation (Incruse Ellipta) levalbuterol HCl 0.63 mg/3 mL 0.63 mg (3 mL) inhalation Q6H PRN 03/19/25 04/10/25 Rx solution for nebulization shortness of breath or wheezing #90 mL levalbuterol HCl 1.25 mg/3 mL 0.63 mg (1.512 mL) inhalation 03/19/25 04/10/25 Rx solution for nebulization Q6HRT #30 vials sevelamer carbonate 0.8 gram oral 0.8 g PO TIDWM #60 grams 03/19/25 04/10/25 Rx powder packet apixaban 2.5 mg tablet (Eliquis) 2.5 mg PO Q12HR #60 tabs 03/27/25 04/10/25 Rx Allergies Allergy/AdvReac Type Severity Reaction Status Date / Time baclofen Allergy Severe encephalopa Verified 04/10/25 14:15 thy Vital Signs Vital Signs - 24 hr 04/09/25 19:56 04/10/25 00:39 04/10/25 03:32 Temperature 98.0 F Pulse Rate 77 75 77 Respiratory Rate 20 16 16 Blood Pressure 150/60 H 154/72 H 145/62 H Pulse Oximetry 100 94 97 Oxygen Delivery Room Air 04/10/25 03:50 04/10/25 04:06 04/10/25 05:06 Temperature 98.0 F 98.0 F 97.8 F Pulse Rate 78 76 74 Respiratory Rate 17 17 15 Blood Pressure 129/59 L 133/60 142/56 H Pulse Oximetry 99 100 95 Oxygen Delivery 04/10/25 05:50 04/10/25 06:20 04/10/25 07:00 Temperature 97.9 F 98.2 F Pulse Rate 73 73 77 Respiratory Rate 16 16 17 Blood Pressure 142/60 H 127/73 124/60 Pulse Oximetry 100 95 94 Oxygen Delivery 04/10/25 08:00 04/10/25 08:58 04/10/25 10:26 Temperature Pulse Rate 77 80 78 Respiratory Rate 16 18 Blood Pressure 147/70 H 139/67 Pulse Oximetry 96 98 Oxygen Delivery 04/10/25 12:22 04/10/25 14:18 Temperature 98.0 F Pulse Rate 75 71 Respiratory Rate 17 18 Blood Pressure 121/61 132/63 Pulse Oximetry 92 92 Oxygen Delivery Room Air Exam Narrative: GENERAL: Well-appearing, well-nourished, and in no acute distress. HEAD: Normocephalic, atraumatic. EYES: PERRLA and EOMI. ENT: Nares clear, no rhinorrhea or epistaxis. Mucous membranes moist. NECK: Supple. CHEST: Clear to auscultation. No respiratory distress. HEART: Regular rate and rhythm. ABDOMEN: Soft, nontender, nondistended, normal active bowel sounds. : Black guaiac-positive stool (per ER note) EXTREMITIES: Normal range of motion. No edema. SKIN: Warm, dry, no rash. There is a ulceration present to the right heel nonerythematous nondraining NEURO: No focal deficits. Alert and oriented x3. PSYCH: Normal mood and affect. Results Labs 04/10/25 06:01 04/10/25 06:01 Labs: Short CBC 04/09/25 04/10/25 04/10/25 Range/Units 20:23 01:28 06:01 WBC 5.7 (4.5-10.0) K/mm3 Hgb 7.7 L 7.2 L 8.3 L (14.0-18.0) g/dL Hct 26.2 L 24.1 L 27.7 L (42.0-52.0) % Plt Count 230 (150-375) k/mm3 BMP 04/09/25 04/10/25 20:23 06:01 Sodium 132 L 132 L Potassium 4.4 4.4 Chloride 91 L 93 L Carbon Dioxide 33 H 31 H BUN 27 H D 31 H Creatinine 3.61 H 3.92 H Glucose 113 H 77 Calcium 8.3 L 8.2 L Liver Function 04/09/25 04/10/25 Range/Units 20:23 06:01 Total Bilirubin 0.3 (0.2-1.3) mg/dL AST 18 (17-59) U/L ALT 12 (6-50) U/L Alkaline Phosphatase 56 (38-126) U/L Albumin 3.6 3.3 L (3.5-5.1) g/dL
--- NOTE | 2025-04-10 15:41 | SUR.OPER ---
EGD ENDED AT 1538, FLEX SIGMOIDOSCOPY STARTED AT 1542
--- NOTE | 2025-04-10 15:51 | S_PTH ---
PATIENT: Sam Morrissey LOC: [id number] U#:[id number] AGE/SX: 79/M ROOM: 312 RE04/10/[address]: Juan Carlos Gooden MD : 1945 BED: 01 DIS: 04/11/2025 SPEC #: [id number] RECD: 04/13/25 07:58 STATUS: LORI REBoyd #: [id number] KJ: 04/10/25 15:[address]: Donnell Jesus DEPT: [facility] Surgical RECD BY: Abbey Wright ENTERED: 04/13/25 07:58 SP TYPE: Surgical OTHR DR: DO Juan Carlos Addison MD Sriraj T. Kanungo, MD Srimannarayana Marella, MD Tissues: A - Gastric Biopsy Procedures: Hematoxylin and Eosin Stain Gross and Microscopic Level 4
--- NOTE | 2025-04-10 15:54 | SUR.OPER ---
AVMS INJECTED WITH INJECTABLE NORMAL SALINE EXP 12-28-25 LOT [id number] WITH 6 ML VIA ENDOSCOPE BY Myesha SARMIENTO RN
--- NOTE | 2025-04-10 16:03 | SUR.PHASEII ---
Report given to JIMMY Mueller
[2025-04-10 16:20] LABS: Glucose Point of Care 76 mg/dl (65-105)
--- NOTE | 2025-04-10 17:25 | P.CONNP_ITS ---
Assessment and Plan Assessment and plan (1) End stage renal disease: Code(s): N18.6 - End stage renal disease Status: Chronic Assessment and Plan: * HD tomorrow * continue T/T/S outpatient dialysis schedule while hospitalized * follow electrolytes, volume status, and clearance (2) GI (gastrointestinal bleed): Qualifiers: GI bleed type/associated pathology: melena Qualified Code(s): K92.1 - Melena Code(s): K92.2 - Gastrointestinal hemorrhage, unspecified Status: Acute Assessment and Plan: * as noted by history and findings in the ER * s/p EGD + colonoscopy earlier today: * EGD: mild to moderate gastritis * colonoscopy: 2 cecal AVMs -- one of which was actively bleeding and treated with cauterization with APC * PRBC transfusion per protocol * Eliqis on hold * follow trend of H/H (3) Atrial fibrillation: Code(s): I48.91 - Unspecified atrial fibrillation Status: Chronic Assessment and Plan: * rate control strategy * restarted anticoagulation (Eliquis) last hospitalization * on hold now (4) Anemia: Code(s): D64.9 - Anemia, unspecified Status: Chronic Assessment and Plan: * acute on chronic * chronic -- due to ESRD * acute -- due to GI bleed (see #2) * Epogen with HD * PRBC transfusion per protocol * follow trend of H/H (5) Essential (primary) hypertension: Code(s): I10 - Essential (primary) hypertension Status: Chronic Assessment and Plan: * reasonable control * follow trend of hemodynamics (6) IDDM (insulin dependent diabetes mellitus): Status: Chronic Assessment and Plan: * follow accu-cheks * glycemic control per hospitalist I will continue follow the patient with you while he remains hospitalized and make further recommendations as needed. Thank you for allowing me to participate in the care of this patient. L History of Present Illness Reason for Consult Consult date: 04/10/25 Reason for consult: end stage renal disease Chief Complaint Chief complaint: GI Bleed History of Present Illness Narrative: The patient is a 79-year-old male with a past medical history as outlined below who presented to the ER from his nursing facility due to rectal bleeding. The patient states following his dialysis treatment yesterday, after he got back to his nursing facility, he had a bowel movement and there appeared to be bloody stool in his diaper/depends. Despite this issue/finding, he otherwise states he had been feeling relatively well. He denied any chest pain, shortness of breath, abdominal pain, nausea, vomiting, dizziness, or lightheadedness. IT should be noted that he was recently restarted on Eliquis on his recent hospitalization here at [place] given his known history of atrial fibrillation. Given this acute change and his complex medical history, he was sent to the ER for further assessment. Work-up and evaluation in the ER demonstrated the patient to be hemodynamically stable and in no acute distress. Routine blood work demonstrated a CBC with normal WBC and platelets but a hemoglobin of 7.7 (which is lower than his baseline) along with a chemistry panel that was consistent with his known history of end stage renal disease without any critical electrolyte abnormalities. It should be noted that while he was in ER, he passed 2 more bowel movement that were melenic in nature and guaiac positive. Gastroenterology was consulted from the ER and he was typed/crossed for a PRBC transfusion and subsequently admitted to the hospital for for evaluation and treatment. Since his admission, he has received a PRBC transfusion already been seen by Gastroenterology and underwent an EGD + colonoscopy with noted findings of mild to moderate gastritis as well as 2 cecal AVMs -- one of which was actively bleeding and treated with cauterization with APC. Renal consultation was requested due to his end-stage renal disease. The patient normally dialyzes on a Sunday, , and Sunday dialysis schedule at [facility] under the care of Dr. Brett Tang. From a dialysis perspective, the patient usually does quite well with relative stability in his monthly labs although his fluid gains in between dialysis treatments can be an issue/quite large at times. His last dialysis treatment was on (04/09/25) which reportedly uneventful per my discussion with his outpatient dialysis center other than some excessive bleed from his AV access post treatment. He is due for dialysis tomorrow. Currently, at the time my visit, he is in apparent distress. Review of Systems 2 Review of Systems: As per HPI. [facility] Past Medical History Medical History Chronic anticoagulation Insulin dependent type 2 diabetes mellitus (~2009) Chronic obstructive pulmonary disease Diabetic polyneuropathy Coronary artery disease Anemia Atrial fibrillation Chronic neck and back pain Insomnia History of nephrolithiasis Sinus pause (~09/2024) Obstructive sleep apnea Intolerant to CPAP Benign prostatic hyperplasia Peripheral vascular disease (~03/2023) Internal hemorrhoid, bleeding End-stage renal disease on hemodialysis DVT dialysis Sunday History of colon polyps Environmental allergies Vitamin D deficiency Dyslipidemia Essential (primary) hypertension Surgical History Surgical History History of cardiac pacemaker (~10/2024) Medtronic pacemaker placed due to symptomatic sinus pauses causing syncope performed at [facility] Status post cataract extraction of both eyes with insertion of intraocular lens History of colonoscopy with polypectomy History of hemorrhoidectomy (~01/12/24) Anorectal evaluation under anesthesia and excisional hemorrhoidectomy x3 12/14/23 SAW S/P peripheral artery angioplasty (~03/2023) status post balloon angioplasty of bilateral common and external iliac arteries status post left iliofemoral endarterectomy Arteriovenous fistula of left upper extremity (~2017) History of appendectomy (~1962) History of coronary artery bypass graft (~2013) Family History Family History Mother Diabetes mellitus Acute myocardial infarction Family history of congestive heart failure Father Hypertension Social History Social History (Updated 04/11/25 @ 02:22 by Alexandra Leo DO) Social History: The patient is . He and his brother live together prior to his hospitalization November or December 2024 and subsequent placement in to [facility]. He is retired after 26 years of serving in the [employer]. He has 4 children. He used to smoke 1.5-2 packs of cigarettes per day but quit smoking in approximately 2009. He will on a rare occasion drink an alcoholic beverage maybe 2 to 3 times a year. He denies illicit substance use. Surrogate medical decision maker: Wilianisael Morrissey, sibling. Code status: Full code. Caffeine- daily Smoking packs per day: 1.5 Smoking cigarettes per day: 30.0 Years smoked: 44 Smoking pack-years: 66.00 Smoking status: Former smoker Second hand tobacco smoke exposure: No Alcohol intake: unknown Alcohol use details: Maybe 2-3 per year Substance use: never Substance use type: does not use Do You Feel Safe in your Home?: No Lack of Transportation: YES Lack of Food: Never True Current Housing: I Have Housing Concerned About Future Housing: No Difficulty Paying Gas/Electric Bills: No Difficulty Paying for Meds: No Currently Unemployed: No Education: Don't Know Difficulty w/ Childcare or Family Care: No Living arrangements: with family Occupation/Education: retired Additional occupation/education comments: Retired from the [employer]. 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 Spiritual care concerns: No Agree to blood products: Yes Meds Home Medications and Allergies Home Medications ?Medication ?Instructions ?Recorded ?Confirmed ?Type aspirin 81 mg tablet,delayed 81 mg PO DAILY 10/31/21 04/10/25 History release carvedilol 25 mg tablet 25 mg PO BID 10/31/21 04/10/25 History insulin lispro 100 unit/mL 4 unit subcut .TIDAC 10/31/21 04/10/25 History subcutaneous pen loratadine 10 mg tablet (Claritin) 10 mg PO DAILY 10/31/21 04/10/25 History insulin glargine 100 unit/mL (3 6 unit subcut HS 11/07/23 04/10/25 History mL) subcutaneous pen (Lantus Solostar U-100 Insulin) cinacalcet 90 mg PO DAILY 12/12/23 04/10/25 History atorvastatin 20 mg tablet 20 mg PO HS 12/21/24 04/10/25 History finasteride 5 mg tablet (Proscar) 5 mg PO QAM #30 tabs 12/23/24 04/10/25 Rx furosemide 80 mg tablet 80 mg PO BID #60 tabs 12/23/24 04/10/25 Rx tamsulosin 0.4 mg capsule 0.4 mg PO QHS #30 caps 12/23/24 04/10/25 Rx acetaminophen 325 mg tablet 650 mg (2 x 325 mg) PO Q4H PRN 01/10/25 04/10/25 Rx Mild Pain (1-3) Or Fever #60 tabs pentoxifylline 400 mg 400 mg PO QPM 01/29/25 04/10/25 History tablet,extended release amlodipine 10 mg tablet 10 mg PO DAILY 02/16/25 04/10/25 History bisacodyl 10 mg rectal suppository 10 mg RECTAL DAILY PRN constipation 02/16/25 04/10/25 History (Laxative (bisacodyl)) gabapentin 100 mg capsule 100 mg PO TID 02/16/25 04/10/25 History liraglutide 0.6 mg/0.1 mL (18 mg/3 1.2 mg subcut HS 02/16/25 04/10/25 History mL) subcutaneous pen injector magnesium citrate (Citroma oral 296 ml PO .AM PRN constipation 02/16/25 04/10/25 History solution) magnesium hydroxide 400 mg/5 mL 30 ml PO HS PRN constipation 02/16/25 04/10/25 History oral suspension (Milk of Magnesia) sodium phosphates 19 gram-7 118 ml RECTAL DAILY PRN 02/16/25 04/10/25 History gram/118 mL enema (Fleet Enema) constipation vitamin B complex 1 cap PO DAILY 02/16/25 04/10/25 History ipratropium 20 mcg-albuterol 100 1 puff inhalation Q6H PRN 03/10/25 04/10/25 History mcg/actuation mist for inhalation shortness of breath or wheezing (Combivent Respimat) loperamide 2 mg capsule 2 mg PO Q4H PRN loose stool 03/10/25 04/10/25 History melatonin 3 mg tablet 3 mg PO HS 03/10/25 04/10/25 History tramadol 50 mg tablet 50 mg PO BID 03/10/25 04/10/25 History umeclidinium 62.5 mcg/actuation 1 inh inhalation DAILY 03/10/25 04/10/25 History blister powder for inhalation (Incruse Ellipta) levalbuterol HCl 0.63 mg/3 mL 0.63 mg (3 mL) inhalation Q6H PRN 03/19/25 04/10/25 Rx solution for nebulization shortness of breath or wheezing #90 mL levalbuterol HCl 1.25 mg/3 mL 0.63 mg (1.512 mL) inhalation 03/19/25 04/10/25 Rx solution for nebulization Q6HRT #30 vials sevelamer carbonate 0.8 gram oral 0.8 g PO TIDWM #60 grams 03/19/25 04/10/25 Rx powder packet apixaban 2.5 mg tablet (Eliquis) 2.5 mg PO Q12HR #60 tabs 03/27/25 04/10/25 Rx Allergies Allergy/AdvReac Type Severity Reaction Status Date / Time baclofen Allergy Severe encephalopa Verified 04/10/25 14:15 thy Vital Signs Vital Signs Temp Pulse Resp BP Pulse Ox O2 Del Method O2 Flow Rate 04/10/25 16:15 66 16 123/74 99 Room Air 04/10/25 16:05 67 16 108/52 L 94 Nasal Cannula 4 04/10/25 15:55 72 16 110/54 L 94 Nasal Cannula 4 04/10/25 14:18 98.0 F 71 18 132/63 92 Room Air 04/10/25 12:22 75 17 121/61 92 04/10/25 10:26 78 18 139/67 98 04/10/25 08:58 80 04/10/25 08:00 77 16 147/70 H 96 04/10/25 07:00 98.2 F 77 17 124/60 94 04/10/25 06:20 73 16 127/73 95 04/10/25 05:50 97.9 F 73 16 142/60 H 100 04/10/25 05:06 97.8 F 74 15 142/56 H 95 04/10/25 04:06 98.0 F 76 17 133/60 100 04/10/25 03:50 98.0 F 78 17 129/59 L 99 04/10/25 03:32 77 16 145/62 H 97 04/10/25 00:39 75 16 154/72 H 94 Exam 2 Narrative: GENERAL APPEARANCE: elderly but well developed well nourished male in NAD HEENT: normocephalic, atraumatic, normal conjunctiva and sclera, nares patient NECK: no lymphadenopathy, thyromegaly, or JVD MOUTH: normal lips, teeth, and gums CARDIOVASCULAR: RRR, normal S1 and S2, no rub RESPIRATORY: clear anteriorly; decreased at bases ABDOMEN: soft, nontender, nondistended, positive bowel sounds present EXTREMITIES: no evidence of cyanosis, clubbing; trace edema NEUROLOGICAL: awake and alert; no focal deficits noted Results Lab Results 04/11/25 06:11 04/11/25 06:11 Lab results: Most recent lab results Calcium 8.2 mg/dL (8.4-10.2) L 04/10/25 06:01 Phosphorus 4.1 mg/dL (2.5-4.5) 04/10/25 06:01
[2025-04-10] MEDS: FUROSEMIDE 80 MG TABLET PO (17:45)
[2025-04-10] MEDS: SEVELAMER CARBONATE 0.8 GM ORAL POWDER PACKET PO (17:45)
[2025-04-10] MEDS: GABAPENTIN 100 MG CAPSULE PO (17:45)
[2025-04-10] MEDS: PENTOXIFYLLINE 400 MG TABCR PO (17:45)
--- NOTE | 2025-04-10 18:22 | ADMGEN ---
This patient, Sam Morrissey, was admitted to [facility] Surg Room 312-01. Patient/family oriented to hospital policies and general routines including ID bracelet, bed and alarms, visiting hours, pain management, procedures, bathroom and other care routines, personal items, smoking policy, room service/diet, and visiting hours. Information on how to activate the Rapid Response Team has been discussed. Patient/Family are encouraged to report perceived risks to care and to ask questions if they do not understand what they are told or what they should do.
[2025-04-10 18:41] LABS: Glucose Point of Care 120 mg/dl (65-105)
[2025-04-10 20:39] LABS: Glucose Point of Care 163 mg/dl (65-105)
[2025-04-10] MEDS: MELATONIN 3 MG TABLET PO (21:46)
[2025-04-10] MEDS: ATORVASTATIN 20 MG TABLET PO (21:46)
[2025-04-10] MEDS: TAMSULOSIN HCL 0.4 MG CAPSULE PO (21:48)
[2025-04-11] VITALS (24 sets, daily range): BP systolic 98–170; BP diastolic 43–74; PULSE 53–76; RESP 14–18; TEMP 35.8–37; O2SAT 95–100
[2025-04-11] MEDS: HYDROcodone/acetaminophen (*CRX) 5-325 MG TABLET 1 TAB PO (05:47)
[2025-04-11 06:18] LABS: Hematocrit 27.5 % (42.0-52.0); Hemoglobin 8.1 g/dL (14.0-18.0); Mean Corpuscular HGB Conc 29.5 g/dl (32-36); Mean Corpuscular Hemoglobin 26.4 pg (26-34); Mean Corpuscular Volume 89.6 fl (80-100); Platelet Count Result 209 k/mm3 (150-375); Red Blood Count 3.07 M/mm3 (4.6-6.20); Red Cell Distribution Width 19.7 % (11.5-14.5)
[2025-04-11 06:32] LABS: Alanine Aminotransferase 11 U/L (6-50); Albumin Level 3.5 g/dL (3.5-5.1); Alkaline Phosphatase 46 U/L (38-126); Anion Gap 12 mmol/L (4-12); Aspartate Amino Transferase 20 U/L (17-59); Bilirubin,Total 0.4 mg/dL (0.2-1.3); Blood Urea Nitrogen 43 mg/dL (9-20); Calcium 8.2 mg/dL (8.4-10.2); Carbon Dioxide 24 mmol/L (22-30); Chloride 95 mmol/L (98-107); Estimated CRCL calculation 11 ml/min; Estimated Glomerular Filt Rate 12; Glucose 92 mg/dL (65-110); Potassium 4.5 mmol/L (3.4-5.0); Sodium 131 mmol/L (137-145); Total Protein 5.9 g/dL (6.3-8.2)
[2025-04-11 07:02] LABS: Hepatitis B Surface Antigen Negative (Negative)
[2025-04-11 07:20] LABS: Hepatitis B Surface Anti Res Positive
[2025-04-11] MEDS: UMECLIDINIUM BROMIDE 62.5 MCG ELLIPTA 1 PUFF INHALATION (07:54)
[2025-04-11 08:06] LABS: Glucose Point of Care 78 mg/dl (65-105)
[2025-04-11] MEDS: traMADol HCL (*CRX) 50 MG TABLET PO (08:15)
[2025-04-11] MEDS: carvediloL 25 MG TABLET PO (08:18)
[2025-04-11] MEDS: SEVELAMER CARBONATE 0.8 GM ORAL POWDER PACKET PO ×2 (08:18→13:34)
--- NOTE | 2025-04-11 10:20 | PM.PNNEP ---
Progress Note: A&P Assessment and Plan (1) End stage renal disease: Code(s): N18.6 - End stage renal disease Status: Chronic Assessment and Plan: HD today continue T/T/S outpatient dialysis schedule while hospitalized follow electrolytes, volume status, and clearance (2) GI (gastrointestinal bleed): Qualifiers: GI bleed type/associated pathology: melena Qualified Code(s): K92.1 - Melena Code(s): K92.2 - Gastrointestinal hemorrhage, unspecified Status: Acute Assessment and Plan: as noted by history and findings in the ER GI following s/p EGD + colonoscopy on 04/10: EGD: mild to moderate gastritis colonoscopy: 2 cecal AVMs -- one of which was actively bleeding and treated with cauterization with APC PRBC transfusion per protocol Eliquis on hold follow trend of H/H (3) Atrial fibrillation: Code(s): I48.91 - Unspecified atrial fibrillation Status: Chronic Assessment and Plan: rate control strategy restarted anticoagulation (Eliquis) last hospitalization on hold now due #2 (4) Anemia: Code(s): D64.9 - Anemia, unspecified Status: Chronic Assessment and Plan: acute on chronic chronic -- due to ESRD acute -- due to GI bleed (see #2) Epogen with HD PRBC transfusion per protocol follow trend of H/H (5) Essential (primary) hypertension: Code(s): I10 - Essential (primary) hypertension Status: Chronic Assessment and Plan: reasonable control follow trend of hemodynamics (6) IDDM (insulin dependent diabetes mellitus): Status: Chronic Assessment and Plan: follow accu-cheks glycemic control per hospitalist Will continue to follow. Subjective Date/time seen: 04/11/25 10:20 Interval history: Follow-up for end stage renal disease on hemodialysis. Tolerated dialysis treatment at the time of my visit (seen on HD at 10:10AM); s/p EGD + colonoscopy yesterday without any issues or problems with findings noted; H/H remains relatively stable following PRBC transfusion; no other issues/events overnight or earlier this morning. Exam Narrative: General: elderly WD/WN male in NAD Heart: normal S1 and S2; no rub Lungs: clear anteriorly; decreased at bases Abdomen: soft, nontender, nondistended, positive bowel sounds Extremities: no cyanosis or clubbing; trace edema Skin: warm and dry Objective Data Vital Signs Vital Signs: Vital Signs Temp Pulse Resp BP Pulse Ox O2 Del Method O2 Flow Rate 04/11/25 10:15 59 L 114/55 L 04/11/25 10:00 74 117/59 L 04/11/25 09:48 53 L 98/43 L 04/11/25 09:45 66 101/52 L 04/11/25 09:30 67 130/58 L 04/11/25 09:17 73 130/60 04/11/25 09:06 97.3 F L 66 16 137/72 100 04/11/25 08:18 76 04/11/25 07:54 76 16 04/11/25 07:54 95 Room Air 04/11/25 05:43 97.1 F L 70 18 149/63 H 97 04/10/25 21:46 85 04/10/25 20:07 97.1 F L 74 18 168/76 H 96 04/10/25 16:15 66 16 123/74 99 Room Air 04/10/25 16:05 67 16 108/52 L 94 Nasal Cannula 4 04/10/25 15:55 72 16 110/54 L 94 Nasal Cannula 4 04/10/25 14:18 98.0 F 71 18 132/63 92 Room Air Intake/Output Intake/Output: Intake & Output 04/08/25 04/09/25 04/10/25 04/11/25 23:59 23:59 23:59 23:59 Intake Total 856.8 700 Output Total 300 Balance 856.8 400 Meds/Results Medications: Active Medications Generic Name Dose Route Start Last Admin Trade Name [place] PRN Reason Stop Dose Admin Acetaminophen 650 mg 04/10/25 05:35 Acetaminophen 325 Mg Tablet PO Q4H PRN Mild Pain (1-3) Or Fever Hydrocodone Bitart/Acetaminophen 1 tab 04/09/25 23:12 04/11/25 05:47 Hydrocodone/Acetaminophen (*Crx) 5-325 Mg Tablet PO 1 tab Q4H PRN Administration Pain Rated 4-6 Amlodipine Besylate 10 mg 04/10/25 09:00 04/10/25 08:58 Amlodipine Besylate 10 Mg Tablet PO 10 mg DAILY DAVID Administration Aspirin 81 mg 04/10/25 09:00 04/10/25 07:49 Aspirin 81 Mg Enteric Tablet PO Not Given DAILY DAVID Atorvastatin Calcium 20 mg 04/10/25 21:00 04/10/25 21:46 Atorvastatin 20 Mg Tablet PO 20 mg HS DAVID Administration Carvedilol 25 mg 04/10/25 09:00 04/11/25 08:18 Carvedilol 25 Mg Tablet PO 25 mg Q12HR DAVID Administration Cinacalcet 90 mg 04/10/25 09:00 04/10/25 07:49 Cinacalcet 30 Mg Tablet PO 05/10/25 08:59 Not Given DAILY DAVID Dextrose 12.5 gm 04/10/25 04:36 Dextrose 50% 25 Gm/50 Ml Syringe IV PUSH PRN PRN Hypoglycemia Protocol Epoetin David-epbx 10,000 units 04/11/25 19:23 Epoetin David-Epbx 10,000 Units/Ml Vial IV PUSH 04/11/25 19:24 ONCE ONE Finasteride 5 mg 04/10/25 09:00 04/10/25 07:49 Finasteride 5 Mg Tablet PO Not Given QAM DAVID Furosemide 80 mg 04/10/25 09:00 04/10/25 17:45 Furosemide 80 Mg Tablet PO 80 mg BID DAVID Administration Gabapentin 100 mg 04/10/25 09:00 04/10/25 17:45 Gabapentin 100 Mg Capsule PO 100 mg TID DAVID Administration Glucagon 1 mg 04/10/25 04:36 Glucagon For Inj 1 Mg Vial IM PRN PRN Hypoglycemia Protocol Glucose 15 gm 04/10/25 04:36 Glucose Oral Gel 15 Gm Of Glucse In 37.5 Gm Tube PO PRN PRN Hypoglycemia Protocol Dextrose 1,000 mls @ 100 mls/hr 04/10/25 04:36 Dextrose 5% 1,000 Ml IVPB PRN PRN Hypoglycemia Protocol Sodium Chloride 500 mls @ 10 mls/hr 04/10/25 13:55 04/10/25 16:20 Normal Saline Iv IV CONT Infused .Q24H DAVID Infusion Albumin Human 50 mls @ 999 mls/hr 04/11/25 07:21 Albutein IVPB 05/11/25 07:20 Q10M PRN HYPOTENSION Levalbuterol HCl 0.63 mg 04/10/25 05:52 Levalbuterol Neb 1.25 Mg/3 Ml INHALATION Q6HRT PRN shortness of breath or wheezing Loratadine 10 mg 04/11/25 09:00 Loratadine 10 Mg Tablet PO DAILY [facility] Melatonin 3 mg 04/10/25 21:00 04/10/25 21:46 Melatonin 3 Mg Tablet PO 3 mg HS [facility] Administration Ondansetron HCl 4 mg 04/09/25 23:12 Ondansetron Inj 4 Mg/2 Ml Vial IV PUSH Q4H PRN Nausea Pantoprazole Sodium 40 mg 04/11/25 09:00 Pantoprazole 40 Mg Tablet PO QAM DAVID Pentoxifylline 400 mg 04/10/25 18:00 04/10/25 17:45 Pentoxifylline 400 Mg Tabcr PO 400 mg QPM [facility] Administration Sevelamer Carbonate 0.8 gm 04/10/25 08:00 04/11/25 08:18 Sevelamer Carbonate 0.8 Gm Oral Powder Packet PO 0.8 gm TIDWM [facility] Administration Tamsulosin HCl 0.4 mg 04/10/25 21:00 04/10/25 21:48 Tamsulosin Hcl 0.4 Mg Capsule PO 0.4 mg QHS [facility] Administration Tramadol HCl 50 mg 04/10/25 05:35 04/11/25 08:15 Tramadol Hcl (*Crx) 50 Mg Tablet PO 50 mg BID PRN Administration Pain 4-10 Umeclidinium [place] 1 puff 04/10/25 09:00 04/11/25 07:54 Umeclidinium [place] 62.5 Mcg Ellipta INHALATION 1 puff DAILY [facility] Administration Vitamin B Complex 1 cap 04/10/25 09:00 04/10/25 07:51 Vitamin B Complex Capsule PO Not Given DAILY [facility] Radiology Results: ITS Impressions Chest X-Ray 04/11/25 08:58 IMPRESSION: 1. Mild streaky opacities at the left mid to lower lung zones and at the right lung base and favor atelectasis over pneumonia. Labs Labs: Laboratory Tests 04/11/25 06:11 04/11/25 06:11 Calcium 8.2 L Total Bilirubin 0.4 AST 20 ALT 11 Alkaline Phosphatase 46 Total Protein 5.9 L Albumin 3.5 Hep Bs Antigen Negative Hep Bs Antibody Positive
[2025-04-11] MEDS: EPOETIN ALFA-EPBX 10,000 UNITS/ML VIAL 10000 UNITS IV PUSH (11:39)
[2025-04-11 12:55] LABS: Glucose Point of Care 95 mg/dl (65-105)
--- NOTE | 2025-04-11 13:07 | P.DS_ITS ---
DS: Admitting Diagnosis Discharge Date 04/11/2025 Admitting Diagnosis GI bleed DS: Discharge Diagnosis Discharge Diagnosis (1) GI (gastrointestinal bleed): Qualifiers: GI bleed type/associated pathology: melena Qualified Code(s): K92.1 - Melena Code(s): K92.2 - Gastrointestinal hemorrhage, unspecified Status: Acute (2) Acute on chronic anemia: Code(s): D64.9 - Anemia, unspecified Status: Acute (3) Insulin dependent type 2 diabetes mellitus: Onset Date: ~2009 Code(s): E11.9 - Type 2 diabetes mellitus without complications; Z79.4 - prison (current) use of insulin Status: Acute (4) End-stage renal disease on hemodialysis: Code(s): N18.6 - End stage renal disease; Z99.2 - Dependence on renal dialysis Status: Acute DS: Summary Hospital Course Hospital Course: 79-year-old male with an extensive past medical history including, but not limited to, end-stage renal disease on hemodialysis Sunday, insulin-dependent diabetes mellitus, essential hypertension, paroxysmal atrial fibrillation on chronic anticoagulation with Eliquis, peripheral artery disease, obstructive sleep apnea and COPD who presented to the ER due to bleeding from his rectum. Patient reported he went to dialysis today and they had difficulty getting the bleeding stops from his fistula. Then when he got home he had a bowel movement and is dependence and past blood. When his in the ER patient passed 2 more bowel movement that were melenic in nature and guaiac positive. The patient reports that he although chronically ill-appearing has been feeling in his usual state of health. He states he has been participating in physical therapy. Simply today after his dialysis treatment they had difficulty stopping the bleeding in his fistula. Then after returning to the custodial he was noted to have bloody stool in his depends. ER provider reported the patient then had a recurrent melenic stool moderate-sized in the ER. Patient denied any abdominal pain or discomfort. He has not had any recorded fevers. His only complaint at the time of my evaluation was that he would like something to eat drink and that he was missing his home CPAP. It had previously been documented that the patient was intolerant to CPAP but he stated he was not using his home CPAP/BiPAP due to recall on the device and was unable to get new equipment at home. He states that he has been compliant with his device since he has been placed in the intermediate facility. He still has pain in his right heel decubitus ulcer but the wound itself is stable. He denies any increased shortness of breath or chest pain. He denies any nausea or vomiting. He reports a fair appetite. He denies any GERD or dyspepsia. He has not had any vomiting. Patient underwent EGD which did not show any significant finding other than the gastritis and underwent Colonoscopy and GIB due to AVM in cecum treated with APC.Please refer to full report. Patient is high risk for continuing anticoagulation On the day of discharge, the patient was seen and examined. Vital signs were stable. Physical exam were stable and labs were reviewed at length. Discharge instructions, medications, and follow-up appointments were discussed with the patient at length and all day questions were answered. ER warnings were given. Patient hemoglobin is stable and needs to check his hemoglobin level in a week and follow up the results with PCP Status at Discharge Cognitive/behavioral status at discharge: Stable Time Spent with Patient Time attestation: Total time spent providing and/or coordinating discharge services: 45 minute Exam Narrative: Weight 81 kg BMI 28 Const: Other: Overweight, chronically ill-appearing but no acute distress HENMT: Other: Head is normocephalic atraumatic, mucous membranes are tacky, no oral pharyngeal erythema, crowded posterior oropharynx Eyes: Other: Positive conjunctival pallor, no scleral icterus Neck: Other: No lymphadenopathy, trachea midline nontender Resp: Other: Clear to auscultation bilaterally, no increased work of breathing Cardio: Other: Irregularly irregular, rate controlled, 2+ bilateral radial and pedal pulses, no JVD Skin: Other: Scattered bruising on the dorsum of bilateral arms, bandage over the left upper extremity AV fistula site bandage clean dry and intact unstageable decubitus ulcer to the right heel with overlying eschar Neuro: Other: Alert oriented x3, speech is clear, no facial asymmetry, no localizing neurologic deficits noted during the course of conversation patient moves bilateral upper and lower extremities with no gross motor deficits noted Extrem: Other: No cyanosis, chronic decubitus wound to the right heel with overlying eschar as mentioned above, 5/5 cytotechnologist/histotechnologist strength bilaterally Psych: Other: Appropriate mood and affect, pleasant and cooperative DS: Data Data Completed and Pending Pending studies at discharge: Pending at discharge 04/10/25 15:51 Surgical [PTH] Routine Labs on day of discharge: Labs from last 24 hours 04/11/25 04/11/25 04/10/25 07:43 06:11 20:09 WBC 5.0 RBC 3.07 L Hgb 8.1 L Hct 27.5 L MCV 89.6 MCH 26.4 MCHC 29.5 L RDW 19.7 H Plt Count 209 MPV 11.0 H Sodium 131 L Potassium 4.5 Chloride 95 L Carbon Dioxide 24 Anion Gap 12 BUN 43 H D Creatinine 4.78 H Estim Creat Clear Calc 11 Estimated GFR 12 L Glucose 92 POC Capillary Glucose 78 163 H Calcium 8.2 L Total Bilirubin 0.4 AST 20 ALT 11 Alkaline Phosphatase 46 Total Protein 5.9 L Albumin 3.5 Hep Bs Antigen Negative Hep Bs Antibody Positive 04/10/25 04/10/25 04/10/25 18:38 16:17 14:04 WBC RBC Hgb Hct MCV MCH MCHC RDW Plt Count MPV Sodium Potassium Chloride Carbon Dioxide Anion Gap BUN Creatinine Estim Creat Clear Calc Estimated GFR Glucose POC Capillary Glucose 120 H 76 77 Calcium Total Bilirubin AST ALT Alkaline Phosphatase Total Protein Albumin Hep Bs Antigen Hep Bs Antibody Imaging Radiologist's impression: ITS Impressions Chest X-Ray 04/11/25 08:58 IMPRESSION: 1. Mild streaky opacities at the left mid to lower lung zones and at the right lung base and favor atelectasis over pneumonia. Discharge Plan Discharge Attending physician on discharge: Juan Carlos Gooden Consulting providers: Juan Carlos Gooden; Donnell Jesus; Martina Booth Discharging Clinician: Juan Carlos Gooden Anticipated Discharge Date/Time: 04/11/25 09:17 Patient Disposition: SNF Activity: as tolerated Diet: renal Discharge Instructions: Please follow up CBC results with PCP in a week Please return to ED if any chest pain,Shortness of breath or palpitations. Holding Eliquis and please discuss with GI before continuing Check blood pressure 1 to 2 times a day. Record and bring into your doctor for review. Call your doctor if your blood pressure is greater than 180/110 or less than 90/45. Walk with cane or other assist device. Take precautions to avoid falls. Rise slowly from a lying or sitting position. Pause before standing or walking. Contact your doctor or call 911 and come to the Emergency Room if you have any type of trauma, lightheadedness with standing or other worrisome symptoms. Avoid NSAIDs (ibuprofen, naproxen, Aleve). Tylenol is safe to take. Follow-up with your primary care provider in 1-2 weeks. Please call for appointment. Follow-up with Gastroenterology in 2-4 weeks. Please call for an appointment. Thank you for using [facility] for your health care needs. Patient Language: Luxembourger Stand Alone Forms: General Discharge Information Follow-up/Referrals: Radha Carrion MD [Primary Care Provider] - Donnell Jesus MD [Physician] - Discharge Medications: Continued carvedilol 25 mg tablet 25 mg PO BID aspirin 81 mg tablet,delayed release (DR/EC) 81 mg PO DAILY insulin lispro 100 unit/mL insulin pen 4 unit subcut .TIDAC loratadine [Claritin] 10 mg tablet 10 mg PO DAILY insulin glargine [Lantus Solostar U-100 Insulin] 100 unit/mL (3 mL) insulin pen 6 unit subcut HS atorvastatin 20 mg tablet 20 mg PO HS tamsulosin 0.4 mg Capsule 0.4 mg PO QHS Qty: 30 0RF furosemide 80 mg Tablet 80 mg PO BID Qty: 60 0RF finasteride [Proscar] 5 mg Tablet 5 mg PO QAM Qty: 30 0RF bisacodyl [Laxative (bisacodyl)] 10 mg suppository 10 mg RECTAL DAILY PRN (Reason: constipation) Rx Instructions: If no results from the MOM. magnesium citrate [Citroma] Solution 296 ml PO .AM PRN (Reason: constipation) Rx Instructions: If no results after enema. Fleet Enema 19-7 gram/118 mL enema 118 ml RECTAL DAILY PRN (Reason: constipation) Rx Instructions: If no results 1 day after the bisacodyl suppository was administered. gabapentin 100 mg capsule 100 mg PO TID liraglutide 0.6 mg/0.1 mL (18 mg/3 mL) pen injector 1.2 mg subcut HS Rx Instructions: To start on 02/20/25. magnesium hydroxide [Milk of Magnesia] 400 mg/5 mL suspension 30 ml PO HS PRN (Reason: constipation) Rx Instructions: If no bowel movement in 3 days. vitamin B complex Capsule 1 cap PO DAILY amlodipine 10 mg tablet 10 mg PO DAILY cinacalcet 90 mg PO DAILY acetaminophen 325 mg Tablet 650 mg PO Q4H PRN (Reason: Mild Pain (1-3) Or Fever) Qty: 60 0RF melatonin 3 mg tablet 3 mg PO HS tramadol 50 mg tablet 50 mg PO BID Incruse Ellipta 62.5 mcg/actuation blister with device 1 inh inhalation DAILY Combivent Respimat 20-100 mcg/actuation mist 1 puff inhalation Q6H PRN (Reason: shortness of breath or wheezing) loperamide 2 mg capsule 2 mg PO Q4H PRN (Reason: loose stool) Rx Instructions: administer after each loose stool until symptoms controlled; do not exceed 8 mg per 24 hrs levalbuterol HCl 1.25 mg/3 mL Solution For Nebulization 0.63 mg inhalation Q6HRT Qty: 30 0RF sevelamer carbonate 0.8 gram Powder In Packet 0.8 g PO TIDWM Qty: 60 0RF levalbuterol HCl 0.63 mg/3 mL solution for nebulization 0.63 mg inhalation Q6H PRN (Reason: shortness of breath or wheezing) Qty: 90 0RF pentoxifylline 400 mg tablet extended release 400 mg PO QPM Rx Instructions: must administer with a meal/food Held Eliquis 2.5 mg Tablet 2.5 mg PO Q12HR Qty: 60 0RF Hold Instructions: Resume on 05/08/25. Please discuss with GI before continuing. Other Ambulatory Orders: Complete Blood Count no Diff (Routine) Timeframe: 1 Week Location: Determined by Patient Ordered By: Juan Carlos Gooden Date of admission: 04/10/25 09:08 Primary Care Provider: Radha Carrion Admitting Provider: Alexandra Leo Attending physician on admission: Alexandra Leo Condition: Stable
[2025-04-11] MEDS: FUROSEMIDE 80 MG TABLET PO (13:34)
[2025-04-11] MEDS: CINACALCET 30 MG TABLET 90 MG PO (13:35)
[2025-04-11] MEDS: VITAMIN B COMPLEX CAPSULE 1 CAP PO (13:35)
[2025-04-11] MEDS: amLODIPine BESYLATE 10 MG TABLET PO (13:35)
[2025-04-11] MEDS: PANTOPRAZOLE 40 MG TABLET PO (13:35)
[2025-04-11] MEDS: ASPIRIN 81 MG ENTERIC TABLET PO (13:35)
[2025-04-11] MEDS: FINASTERIDE 5 MG TABLET PO (13:36)
[2025-04-11] MEDS: LORATADINE 10 MG TABLET PO (13:36)
[2025-04-11] MEDS: GABAPENTIN 100 MG CAPSULE PO (13:36)
--- NOTE | 2025-04-11 13:56 | PCOTNOTE ---
Attempted OT evaluation, patient declines at this time.
--- NOTE | 2025-04-11 15:27 | WPDGIPROGNO ---
Progress Note: A&P Assessment and Plan (1) AVM (arteriovenous malformation) of colon, acquired with hemorrhage: Code(s): K55.21 - Angiodysplasia of colon with hemorrhage Status: Acute Assessment and Plan: this was cause of bleeding and treated with apc hgb stable no objections to discharge hold blood thinner at least another 7 days (2) GI (gastrointestinal bleed): Qualifiers: GI bleed type/associated pathology: melena Qualified Code(s): K92.1 - Melena Code(s): K92.2 - Gastrointestinal hemorrhage, unspecified Status: Acute Assessment and Plan: resolved (3) Chronic anticoagulation: Code(s): Z79.01 - jail (current) use of anticoagulants Status: Acute (4) End-stage renal disease on hemodialysis: Code(s): N18.6 - End stage renal disease; Z99.2 - Dependence on renal dialysis Status: Acute (5) Insulin dependent type 2 diabetes mellitus: Onset Date: ~2009 Code(s): E11.9 - Type 2 diabetes mellitus without complications; Z79.4 - jail (current) use of insulin Status: Acute Subjective Date/time seen: 04/11/25 15:27 Interval history: colonoscopy yesterday noted AVM cecum with active oozing, treated with apc he is comfortable today, no more report of bleeding Review of Systems Review of Systems: All systems reviewed & are unremarkable except as noted in HPI and below Exam Const: General: comfortable and no acute distress HENMT: Face/Nose/Sinus: Normal nares present Eyes: General: appearance normal, both eyes and all related structures Neck: Neck: no JVD Resp: Auscultation: clear to auscultation bilaterally Cardio: Rate: regular rate Rhythm: regular rhythm GI: Inspection: non-distended GI Palp: Yes Soft to palpation Skin: General skin exam: normal color Neuro: Speech: normal speech Extrem: General: normal to inspection Psych: Mental Status: mental status grossly normal Objective Data Vital Signs Vital Signs: Vital Signs - 24 hr 04/10/25 15:55 04/10/25 16:05 04/10/25 16:15 Temperature Pulse Rate 72 67 66 Respiratory Rate 16 16 16 Blood Pressure 110/54 L 108/52 L 123/74 Pulse Oximetry 94 94 99 Oxygen Delivery Nasal Cannula Nasal Cannula Room Air Oxygen Flow Rate 4 4 Fraction of Inspired Oxygen 04/10/25 20:07 04/10/25 21:46 04/11/25 05:43 Temperature 97.1 F L 97.1 F L Pulse Rate 74 85 70 Respiratory Rate 18 18 Blood Pressure 168/76 H 149/63 H Pulse Oximetry 96 97 Oxygen Delivery Oxygen Flow Rate Fraction of Inspired Oxygen 04/11/25 07:54 04/11/25 07:54 04/11/25 08:18 Temperature Pulse Rate 76 76 Respiratory Rate 16 Blood Pressure Pulse Oximetry 95 Oxygen Delivery Room Air Oxygen Flow Rate Fraction of Inspired Oxygen 04/11/25 09:06 04/11/25 09:17 04/11/25 09:30 Temperature 97.3 F L Pulse Rate 66 73 67 Respiratory Rate 16 Blood Pressure 137/72 130/60 130/58 L Pulse Oximetry 100 Oxygen Delivery Oxygen Flow Rate Fraction of Inspired Oxygen 04/11/25 09:45 04/11/25 09:48 04/11/25 10:00 Temperature Pulse Rate 66 53 L 74 Respiratory Rate Blood Pressure 101/52 L 98/43 L 117/59 L Pulse Oximetry Oxygen Delivery Oxygen Flow Rate Fraction of Inspired Oxygen 04/11/25 10:15 04/11/25 10:30 04/11/25 10:45 Temperature Pulse Rate 59 L 60 55 L Respiratory Rate Blood Pressure 114/55 L 122/54 L 114/55 L Pulse Oximetry Oxygen Delivery Oxygen Flow Rate Fraction of Inspired Oxygen 04/11/25 11:00 04/11/25 11:15 04/11/25 11:30 Temperature Pulse Rate 63 67 61 Respiratory Rate Blood Pressure 134/58 L 131/61 132/61 Pulse Oximetry Oxygen Delivery Oxygen Flow Rate Fraction of Inspired Oxygen 04/11/25 11:45 04/11/25 12:00 04/11/25 12:15 Temperature Pulse Rate 57 L 64 68 Respiratory Rate Blood Pressure 146/58 H 149/64 H 140/60 Pulse Oximetry Oxygen Delivery Oxygen Flow Rate Fraction of Inspired Oxygen 04/11/25 12:30 04/11/25 12:45 04/11/25 12:50 Temperature Pulse Rate 75 70 66 Respiratory Rate Blood Pressure 143/64 H 140/62 155/63 H Pulse Oximetry Oxygen Delivery Oxygen Flow Rate Fraction of Inspired Oxygen 04/11/25 12:54 04/11/25 14:00 Temperature 97.5 F L 96.4 F L Pulse Rate 71 76 Respiratory Rate 14 18 Blood Pressure 138/57 L 170/74 H Pulse Oximetry 98 98 Oxygen Delivery Oxygen Flow Rate Fraction of Inspired Oxygen Intake/Output Intake/Output: Intake & Output 04/08/25 04/09/25 04/10/25 04/11/25 23:59 23:59 23:59 23:59 Intake Total 856.8 940 Output Total 3500 Balance 856.8 -2560 Meds/Results Medications: Active Medications Generic Name Dose Route Start Last Admin Trade Name Freq PRN Reason Stop Dose Admin Acetaminophen 650 mg 04/10/25 05:35 Acetaminophen 325 Mg Tablet PO Q4H PRN Mild Pain (1-3) Or Fever Hydrocodone Bitart/Acetaminophen 1 tab 04/09/25 23:12 04/11/25 05:47 Hydrocodone/Acetaminophen (*Crx) 5-325 Mg Tablet PO 1 tab Q4H PRN Administration Pain Rated 4-6 Amlodipine Besylate 10 mg 04/10/25 09:00 04/11/25 13:35 Amlodipine Besylate 10 Mg Tablet PO 10 mg DAILY DAVID Administration Aspirin 81 mg 04/10/25 09:00 04/11/25 13:35 Aspirin 81 Mg Enteric Tablet PO 81 mg DAILY DAVID Administration Atorvastatin Calcium 20 mg 04/10/25 21:00 04/10/25 21:46 Atorvastatin 20 Mg Tablet PO 20 mg HS DAVID Administration Carvedilol 25 mg 04/10/25 09:00 04/11/25 08:18 Carvedilol 25 Mg Tablet PO 25 mg Q12HR DAVID Administration Cinacalcet 90 mg 04/10/25 09:00 04/11/25 13:35 Cinacalcet 30 Mg Tablet PO 05/10/25 08:59 90 mg DAILY DAVID Administration Dextrose 12.5 gm 04/10/25 04:36 Dextrose 50% 25 Gm/50 Ml Syringe IV PUSH PRN PRN Hypoglycemia Protocol Epoetin David-epbx 10,000 units 04/11/25 19:23 04/11/25 11:39 Epoetin David-Epbx 10,000 Units/Ml Vial IV PUSH 04/11/25 19:24 10,000 units ONCE ONE Administration Finasteride 5 mg 04/10/25 09:00 04/11/25 13:36 Finasteride 5 Mg Tablet PO 5 mg QAM DAVID Administration Furosemide 80 mg 04/10/25 09:00 04/11/25 13:34 Furosemide 80 Mg Tablet PO 80 mg BID DAVID Administration Gabapentin 100 mg 04/10/25 09:00 04/11/25 13:36 Gabapentin 100 Mg Capsule PO 100 mg TID DAVID Administration Glucagon 1 mg 04/10/25 04:36 Glucagon For Inj 1 Mg Vial IM PRN PRN Hypoglycemia Protocol Glucose 15 gm 04/10/25 04:36 Glucose Oral Gel 15 Gm Of Glucse In 37.5 Gm Tube PO PRN PRN Hypoglycemia Protocol Dextrose 1,000 mls @ 100 mls/hr 04/10/25 04:36 Dextrose 5% 1,000 Ml IVPB PRN PRN Hypoglycemia Protocol Sodium Chloride 500 mls @ 10 mls/hr 04/10/25 13:55 04/10/25 16:20 Normal Saline Iv IV CONT Infused .Q24H DAVID Infusion Albumin Human 50 mls @ 999 mls/hr 04/11/25 07:21 Albutein IVPB 05/11/25 07:20 Q10M PRN HYPOTENSION Levalbuterol HCl 0.63 mg 04/10/25 05:52 Levalbuterol Neb 1.25 Mg/3 Ml INHALATION Q6HRT PRN shortness of breath or wheezing Loratadine 10 mg 04/11/25 09:00 04/11/25 13:36 Loratadine 10 Mg Tablet PO 10 mg DAILY DAVID Administration Melatonin 3 mg 04/10/25 21:00 04/10/25 21:46 Melatonin 3 Mg Tablet PO 3 mg HS DAVID Administration Ondansetron HCl 4 mg 04/09/25 23:12 Ondansetron Inj 4 Mg/2 Ml Vial IV PUSH Q4H PRN Nausea Pantoprazole Sodium 40 mg 04/11/25 09:00 04/11/25 13:35 Pantoprazole 40 Mg Tablet PO 40 mg QAM DAVID Administration Pentoxifylline 400 mg 04/10/25 18:00 04/10/25 17:45 Pentoxifylline 400 Mg Tabcr PO 400 mg QPM DAVID Administration Sevelamer Carbonate 0.8 gm 04/10/25 08:00 04/11/25 13:34 Sevelamer Carbonate 0.8 Gm Oral Powder Packet PO 0.8 gm TIDWM DAVID Administration Tamsulosin HCl 0.4 mg 04/10/25 21:00 04/10/25 21:48 Tamsulosin Hcl 0.4 Mg Capsule PO 0.4 mg QHS DAVID Administration Tramadol HCl 50 mg 04/10/25 05:35 04/11/25 08:15 Tramadol Hcl (*Crx) 50 Mg Tablet PO 50 mg BID PRN Administration Pain 4-10 Umeclidinium [place] 1 puff 04/10/25 09:00 04/11/25 07:54 Umeclidinium [place] 62.5 Mcg Ellipta INHALATION 1 puff DAILY DAVID Administration Vitamin B Complex 1 cap 04/10/25 09:00 04/11/25 13:35 Vitamin B Complex Capsule PO 1 cap DAILY DAVID Administration Radiology Results: ITS Impressions Chest X-Ray 04/11/25 08:58 IMPRESSION: 1. Mild streaky opacities at the left mid to lower lung zones and at the right lung base and favor atelectasis over pneumonia. Labs Labs: Laboratory Results - last 24 hr 04/10/25 04/10/25 04/10/25 16:17 18:38 20:09 WBC RBC Hgb Hct MCV MCH MCHC RDW Plt Count MPV Sodium Potassium Chloride Carbon Dioxide Anion Gap BUN Creatinine Estim Creat Clear Calc Estimated GFR Glucose POC Capillary Glucose 76 120 H 163 H Calcium Total Bilirubin AST ALT Alkaline Phosphatase Total Protein Albumin Hep Bs Antigen Hep Bs Antibody 04/11/25 04/11/25 04/11/25 06:11 07:43 12:51 WBC 5.0 RBC 3.07 L Hgb 8.1 L Hct 27.5 L MCV 89.6 MCH 26.4 MCHC 29.5 L RDW 19.7 H Plt Count 209 MPV 11.0 H Sodium 131 L Potassium 4.5 Chloride 95 L Carbon Dioxide 24 Anion Gap 12 BUN 43 H D Creatinine 4.78 H Estim Creat Clear Calc 11 Estimated GFR 12 L Glucose 92 POC Capillary Glucose 78 95 Calcium 8.2 L Total Bilirubin 0.4 AST 20 ALT 11 Alkaline Phosphatase 46 Total Protein 5.9 L Albumin 3.5 Hep Bs Antigen Negative Hep Bs Antibody Positive
== END 2025-04-11 16:28 | DRG 377 ==
LOC: ANHED 21:49 → ANH3MEDSUR 23:27
PROVIDERS: Internal Medicine Gastroenterology; Internal Medicine Nephrology; Admitting Provider Internal Medicine; Emergency Provider Emergency Medicine; PCP Family Medicine; Visit Provider General Practice
PROC: 0DJ08ZZ Inspection of Upper Intestinal Tract, Via Natural or Artificial Opening Endoscopic (ICD-10-PCS; principal; 2025-04-10 15:30)
PROC: 0DJD8ZZ Inspection of Lower Intestinal Tract, Via Natural or Artificial Opening Endoscopic (ICD-10-PCS; CPT 45330; 2025-04-10 15:30)
DX: K55.21 Angiodysplasia of colon with hemorrhage (principal); N18.6 End stage renal disease; I12.0 Hypertensive chronic kidney disease with stage 5 chronic kidney disease or end stage renal disease; D63.1 Anemia in chronic kidney disease; K29.70 Gastritis, unspecified, without bleeding; J44.9 Chronic obstructive pulmonary disease, unspecified; I25.10 Atherosclerotic heart disease of native coronary artery without angina pectoris; I48.0 Paroxysmal atrial fibrillation; E11.22 Type 2 diabetes mellitus with diabetic chronic kidney disease; E11.42 Type 2 diabetes mellitus with diabetic polyneuropathy; E11.51 Type 2 diabetes mellitus with diabetic peripheral angiopathy without gangrene; E55.9 Vitamin D deficiency, unspecified; E78.5 Hyperlipidemia, unspecified; L89.619 Pressure ulcer of right heel, unspecified stage; N40.0 Benign prostatic hyperplasia without lower urinary tract symptoms; G47.33 Obstructive sleep apnea (adult) (pediatric); Z79.01 Long term (current) use of anticoagulants; Z79.82 Long term (current) use of aspirin; Z79.4 Long term (current) use of insulin; Z99.2 Dependence on renal dialysis; Z87.442 Personal history of urinary calculi; Z95.0 Presence of cardiac pacemaker; Z95.1 Presence of aortocoronary bypass graft; Z87.891 Personal history of nicotine dependence
CPT/HCPCS: 36415; 36430; 71045; 80053; 80069; 82948; 85014; 85018; 85025; 85027; 85610; 85730; 86706; 86850; 86900; 86901; 86923; 87340; 88305; 94640; 96374; 96375; 99285; A9270; G0257; G0378; J2003; J2470; J2704; J7030; J7040; J7050; P9016; Q5105

== ENCOUNTER 2025-04-23 03:56 | Inpatient (IN) | payer MEDICARE, OTHER, SELFPAY ==
[2025-04-23] VITALS (45 sets, daily range): BP systolic 86–146; BP diastolic 53–89; PULSE 68–106; RESP 14–24; TEMP 35.9–37; O2SAT 90–100
--- NOTE | ~2025-04-23 | CT_ITS ---
Clinical Indication: Pleural effusion, transaminitis CT Scan of the Chest, Abdomen, and Pelvis with Contrast: Technique: Contiguous sections were acquired throughout the chest, abdomen, and pelvis after intraven ous administration of 100 cc of Omnipaque 350. Dose reduction technique was used on this scan by joyce mcgarrying automated exposure control and iterative reconstruction technique. The dose-length product (DL P) was 1258.89 mGy-cm. Findings: There is no evidence of any significant mediastinal, hilar or axillary lymphadenopathy. The mediastin al soft tissues appear normal. No pulmonary embolus identified. No aortic aneurysm or dissection. No pericardial effusion. There are moderate bilateral pleural effusions, mild bibasilar atelectasis and probable mild patchy p ulmonary edema.. The liver, pancreas, and adrenal glands are within normal limits. Small gallstone present with probab le mild gallbladder wall thickening. Spleen is enlarged, measuring 15.6 cm in length. Kidneys are rel atively atrophic. There are severe atherosclerotic calcifications of the aorta and iliac vessels, as well as the proximal SMA.. No lymphadenopathy. No bowel obstruction or bowel wall thickening. There is no evidence to suggest acute appendicitis. Urinary bladder is unremarkable. Prostate gland is significantly enlarged. Small fat-containing right inguinal hernia noted. Small amount of abdominopelvic ascites present. There is moderate degenerativ e spondylosis of the lumbar spine. Impression: Moderate bilateral pleural effusions with mild pulmonary edema and bibasilar atelectatic change. Small gallstone. Splenomegaly, uncertain etiology. Mild gallbladder wall thickening is nonspecific, probably most likely related to the presence of asci raul. If there is concern for acute cholecystitis, consider HIDA scan. Marked prostatomegaly. Reviewed, dictated and finalized at [facility]. Impression: Moderate bilateral pleural effusions with mild pulmonary edema and bibasilar at electatic change. Small gallstone. Splenomegaly, uncertain etiology. Mild gallbladder wall thickening is nonspecific, probably most likely related t o the presence of ascites. If there is concern for acute cholecystitis, conside r HIDA scan. Marked prostatomegaly.
--- NOTE | ~2025-04-23 | US_ITS ---
EXAM: ABDOMEN ULTRASOUND HISTORY: elevated LFT COMPARISON: CT examination of the chest abdomen and pelvis dated 04/23/2025 FINDINGS: LIVER: The liver is unremarkable in echogenicity and size. The portal vein is patent, demonstrating hepatopedal flow. GALLBLADDER: Mural thickening and edema with hyperemia is identified within the wall of the gallbladd er. The gallbladder wall measures 5 mm in thickness with multiple punctate adherent stones. BILE DUCTS: Common bile duct measures 6.5mm. PANCREAS: Limited evaluation of the pancreas secondary to overlying bowel gas IMPRESSION: Limited evaluation of the pancreas secondary to overlying bowel gas. Mural thickening, edema and hyperemia within the wall of the gallbladder with multiple adherent stone s for which acute cholecystitis is suspected and for which clinical correlation is needed. Reviewed, dictated and finalized at [facility]. IMPRESSION: Limited evaluation of the pancreas secondary to overlying bowel gas. Mural thickening, edema and hyperemia within the wall of the gallbladder with m ultiple adherent stones for which acute cholecystitis is suspected and for whic h clinical correlation is needed.
--- NOTE | ~2025-04-23 | XR_ITS ---
XR chest 1V portable Ordering provider: Martina Booth MD History: 79 years Male with . hypoxia . Comparison: April 23, 2025 FINDINGS: MEDIASTINUM: The cardiac silhouette is slightly enlarged. Postoperative changes in the mediastinum. D evice is projected over the left hemithorax. Congestive serina. LUNGS: No effusions or pneumothorax. Bilateral interstitial and alveolar opacification suggestive of pneumonia. Underlying pulmonary edema is not excluded. OTHER: No free air under the diaphragm. IMPRESSION: Bilateral pneumonia with possible underlying pulmonary edema. Changes are slightly increased compared to previous study. Reviewed, dictated and finalized at location [facility]. IMPRESSION: Bilateral pneumonia with possible underlying pulmonary edema. Changes are sligh tly increased compared to previous study.
--- NOTE | ~2025-04-23 | XR_ITS ---
Portable chest x-ray Comparison: 04/11/2025 Clinical History: Weakness Findings: Probable minimal pleural effusions. There is hazy left perihilar airspace disease. Cardio mediastinal silhouette is stable, with loop recorder. Bones and soft tissues are unremarkable. Impression: Probable mild somewhat asymmetric pulmonary edema on the left side, versus possibly pneumonia. Minimal pleural effusions. Reviewed, dictated and finalized at [facility]. Impression: Probable mild somewhat asymmetric pulmonary edema on the left side, versus poss ibly pneumonia. Minimal pleural effusions.
--- NOTE | 2025-04-23 04:04 | ECG_ITS ---
Test Date: 2025-04-23 04:03:06 Measurements Intervals [place] Rate: 77 P: 0 NM: 0 QRS: 223 QRSD: 153 T: -32 QT: 462 QTc: 524 Interpretive Statements ATRIAL FIBRILLATION RIGHT AXIS DEVIATION [QRS AXIS > 100] RIGHT BUNDLE BRANCH BLOCK [120+ ms QRS DURATION, UPRIGHT V1, 40+ ms S IN I/aVL/V4/V5/V6] POSSIBLE SEPTAL MYOCARDIAL INFARCTION , PROBABLY OLD [30 ms Q WAVE IN V1/V2] Compared to ECG 03/23/2025 00:50:33 Myocardial infarct finding now present Electronically Signed On 04-23-2025 16:41:14 CDT by Mj Campos
--- NOTE | 2025-04-23 04:10 | ED_ITS ---
HPI - Weakness General Chief complaint: Weakness Stated complaint: PAIN ALL OVER, INCREASING WEAKNESS Time Seen by Provider: 04/23/25 04:10 Source: patient and EMS Mode of arrival: EMS History of Present Illness HPI Narrative: Patient presents for EMS with report of pain all over and increased weakness. He resides at [facility]. He told EMS that he was having abdominal pain, that he ate too much.At baseline he is alert oriented x2 which is his baseline. He denies any shortness of breath. History of COPD, diabetes mellitus, heart issues and ESRD on HD (supposed to go today so presumably T/Th/Sat). Vital signs per EMS 108/60, 76 afib, saturating 88% on 2L NC (baseline) improved on 4L. POC 114 Patient states the same complaing about abdominal pain from eating too much to me. Related Data Home Medications ?Medication ?Instructions ?Recorded ?Confirmed ?Last Taken ?Type aspirin 81 mg tablet,delayed 81 mg PO DAILY 10/31/21 04/10/25 03/09/25 History release carvedilol 25 mg tablet 25 mg PO BID 10/31/21 04/10/25 03/09/25 History insulin lispro 100 unit/mL 4 unit subcut .TIDAC 10/31/21 04/10/25 03/09/25 History subcutaneous pen loratadine 10 mg tablet (Claritin) 10 mg PO DAILY 10/31/21 04/10/25 03/09/25 History insulin glargine 100 unit/mL (3 6 unit subcut HS 11/07/23 04/10/25 03/09/25 22:20 History mL) subcutaneous pen (Lantus Solostar U-100 Insulin) cinacalcet 90 mg PO DAILY 12/12/23 04/10/25 03/09/25 History atorvastatin 20 mg tablet 20 mg PO HS 12/21/24 04/10/25 03/09/25 History pentoxifylline 400 mg 400 mg PO QPM 01/29/25 04/10/25 03/09/25 17:00 History tablet,extended release amlodipine 10 mg tablet 10 mg PO DAILY 02/16/25 04/10/25 03/09/25 History bisacodyl 10 mg rectal suppository 10 mg RECTAL DAILY PRN constipation 02/16/25 04/10/25 Unknown History (Laxative (bisacodyl)) gabapentin 100 mg capsule 100 mg PO TID 02/16/25 04/10/25 03/09/25 History liraglutide 0.6 mg/0.1 mL (18 mg/3 1.2 mg subcut HS 02/16/25 04/10/25 03/09/25 History mL) subcutaneous pen injector magnesium citrate (Citroma oral 296 ml PO .AM PRN constipation 02/16/25 04/10/25 Unknown History solution) magnesium hydroxide 400 mg/5 mL 30 ml PO HS PRN constipation 02/16/25 04/10/25 Unknown History oral suspension (Milk of Magnesia) sodium phosphates 19 gram-7 118 ml RECTAL DAILY PRN 02/16/25 04/10/25 Unknown History gram/118 mL enema (Fleet Enema) constipation vitamin B complex 1 cap PO DAILY 02/16/25 04/10/25 03/09/25 History ipratropium 20 mcg-albuterol 100 1 puff inhalation Q6H PRN 03/10/25 04/10/25 Unknown History mcg/actuation mist for inhalation shortness of breath or wheezing (Combivent Respimat) loperamide 2 mg capsule 2 mg PO Q4H PRN loose stool 03/10/25 04/10/25 Unknown History melatonin 3 mg tablet 3 mg PO HS 03/10/25 04/10/25 03/09/25 History tramadol 50 mg tablet 50 mg PO BID 03/10/25 04/10/25 03/09/25 History umeclidinium 62.5 mcg/actuation 1 inh inhalation DAILY 03/10/25 04/10/25 03/09/25 History blister powder for inhalation (Incruse Ellipta) Allergies Allergy/AdvReac Type Severity Reaction Status Date / Time baclofen Allergy Severe encephalopa Verified 04/23/25 04:18 thy PMF Past Medical History Medical History (Updated 04/23/25 @ 08:07 by Karli Grant MD) AVM (arteriovenous malformation) of colon, acquired with hemorrhage Chronic anticoagulation Insulin dependent type 2 diabetes mellitus (~2009) Chronic obstructive pulmonary disease Diabetic polyneuropathy Coronary artery disease Anemia Atrial fibrillation Chronic neck and back pain Insomnia History of nephrolithiasis Sinus pause (~09/2024) Obstructive sleep apnea Intolerant to CPAP Benign prostatic hyperplasia Peripheral vascular disease (~03/2023) Internal hemorrhoid, bleeding End-stage renal disease on hemodialysis DVT dialysis Sunday History of colon polyps Environmental allergies Vitamin D deficiency Dyslipidemia Essential (primary) hypertension Surgical History Surgical History History of cardiac pacemaker (~10/2024) Medtronic pacemaker placed due to symptomatic sinus pauses causing syncope performed at [facility] Status post cataract extraction of both eyes with insertion of intraocular lens History of colonoscopy with polypectomy History of hemorrhoidectomy (~01/12/24) Anorectal evaluation under anesthesia and excisional hemorrhoidectomy x3 12/14/23 SAW S/P peripheral artery angioplasty (~03/2023) status post balloon angioplasty of bilateral common and external iliac arteries status post left iliofemoral endarterectomy Arteriovenous fistula of left upper extremity (~2017) History of appendectomy (~1962) History of coronary artery bypass graft (~2013) Family History Family History Mother Diabetes mellitus Acute myocardial infarction Family history of congestive heart failure Father Hypertension Social History Social History (Updated 04/11/25 @ 02:22 by Alexandra Leo DO) Social History: The patient is . He and his brother live together prior to his hospitalization November or December 2024 and subsequent placement in to [facility]. He is retired after 26 years of serving in the [employer]. He has 4 children. He used to smoke 1.5-2 packs of cigarettes per day but quit smoking in approximately 2009. He will on a rare occasion drink an alcoholic beverage maybe 2 to 3 times a year. He denies illicit substance use. Surrogate medical decision maker: Wilian Morrissey, sibling. Code status: Full code. Caffeine- daily Smoking packs per day: 1.5 Smoking cigarettes per day: 30.0 Years smoked: 44 Smoking pack-years: 66.00 Smoking status: Former smoker Second hand tobacco smoke exposure: No Alcohol intake: unknown Alcohol use details: Maybe 2-3 per year Substance use: never Substance use type: does not use Do You Feel Safe in your Home?: No Lack of Transportation: YES Lack of Food: Never True Current Housing: I Have Housing Concerned About Future Housing: No Difficulty Paying Gas/Electric Bills: No Difficulty Paying for Meds: No Currently Unemployed: No Education: Don't Know Difficulty w/ Childcare or Family Care: No Living arrangements: with family Occupation/Education: retired Additional occupation/education comments: Retired from the [employer]. 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 Spiritual care concerns: No Agree to blood products: Yes Exam 2 Narrative: GENERAL: Chronically ill-appearing, and in no acute distress. HEAD: Normocephalic, atraumatic. EYES: Non injected, non icteric ENT: Nares clear, no rhinorrhea or epistaxis. Gross auditory acuity intact. NECK: Supple. No meningismus. CHEST: Speaking in full sentences. No respiratory distress. HEART: Irregularly IRegular rate and rhythm. . ABDOMEN: Soft, nondistended. No rigidity or guarding. Not peritoneal EXTREMITIES: Normal range of motion. L arm fistula. SKIN: Warm, dry. Right griffin hematoma with erythema. Right griffin wound. NEURO: No focal deficits. Alert and oriented. Answering questions. Following commands. Normal speech without aphasia or dysarthria. PSYCH: Normal mood and affect. Course Vital Signs Vital signs: Vital Signs Temperature 97.9 F 04/23/25 03:56 Pulse Rate 82 04/23/25 03:56 Respiratory Rate 19 04/23/25 03:56 Blood Pressure 112/61 04/23/25 03:56 Pulse Oximetry 95 04/23/25 03:56 Oxygen Delivery Nasal Cannula 04/23/25 03:56 Oxygen Flow Rate 2 04/23/25 03:56 Temperature 97.9 F 04/23/25 03:56 Pulse Rate 72 04/23/25 08:17 Respiratory Rate 16 04/23/25 08:17 Blood Pressure 120/60 04/23/25 08:17 Pulse Oximetry 96 04/23/25 08:21 Oxygen Delivery Nasal Cannula 04/23/25 08:21 Oxygen Flow Rate 2 04/23/25 08:21 MDM - Weakness MDM Narrative Medical decision making narrative: [facility] complaining of increased weakness and pain all over. In particular now complaining of abdominal pain that he ate too much. In the emergency department they are afebrile with vital signs within normal limits. Normocytic anemia, stable from previous. Patient has marked transaminitis, ranging from 300s to 500s which is an acute change. Coagulation studies and acetaminophen level are ordered. Will proceed with CT imaging with contrast. Will make a chest abdomen and pelvis given the presence of pneumonia versus pleural effusions as well. Patient has end-stage renal disease but is due for dialysis today. Lipase is normal. Patient chronically has an elevated troponin although it is significantly more elevated today. Aspirin and 3 hour troponin are ordered. Lactic acid normal. No leukocytosis. Patient reassessed at 06:30 and states is pain is 6/10 in severity. Morphine ordered. Patient discussed with on-call hospitalist Dr Wahl. Placed cardiology consult and placed nephrology consult after informing Emmy that he needed dialysis. Will be IMU admission. Differential Diagnosis Differential diagnosis: Likely acute myocardial infarction, anemia, hypoglycemia, hypothyroidism, rhabdomyolysis, sepsis and dehydration Lab Data Attestation: I reviewed the patient's lab results. 04/23/25 04:10 04/23/25 04:10 Labs: Lab Results 04/23/25 04/23/25 04/23/25 Range/Units 04:10 04:10 04:10 WBC 8.7 (4.5-10.0) K/mm3 RBC 3.40 L (4.6-6.20) M/mm3 Hgb 8.8 L (14.0-18.0) g/dL Hct 30.5 L (42.0-52.0) % MCV 89.7 (80-100) fl MCH 25.9 L (26-34) pg MCHC 28.9 L (32-36) g/dl RDW 18.4 H (11.5-14.5) % Plt Count 300 (150-375) k/mm3 MPV 10.1 (7.4-10.4) fl Immature Gran % (Auto) 0.7 H (0-0.5) % Neut % (Auto) 84.1 H (45.5-73.1) % Lymph % (Auto) 5.2 L (18.3-44.2) % Sully % (Auto) 9.2 H (2.6-8.5) % Eos % (Auto) 0.2 (0-4.4) % Baso % (Auto) 0.6 (0.2-1.2) % Lymph # (Auto) 0.45 L (0.9-3.2) K/mm3 Sully # (Auto) 0.8 H (0.1-0.6) K/mm3 Eos # (Auto) 0.0 (0-0.3) K/mm3 Baso # (Auto) 0.1 (0.0-0.1) K/mm3 Abs Immat Gran (auto) 0.06 H (0.00-0.031) K/mm3 Absolute Neuts (auto) 7.3 H (1.3-6.7) K/mm3 Absolute Nucleated RBC 0.000 (0.0-0.012) K/mm3 Band Neutrophils % Not Reportable Nucleated RBC % 0.0 (0.0-0.2) % Platelet Estimate Adequate (Adequate) Hypochromasia 1+ Anisocytosis 1+ Schistocytes Rare PT 17.5 H (11.1-14.7) Seconds INR 1.4 APTT 41.5 H (22.3-36.8) Seconds Sodium 133 L (137-145) mmol/L Potassium 5.1 H (3.4-5.0) mmol/L Chloride 90 L (98-107) mmol/L Carbon Dioxide 34 H (22-30) mmol/L Anion Gap 9 (4-12) mmol/L BUN 37 H (9-20) mg/dL Creatinine 5.44 H (0.7-1.3) mg/dL Estim Creat Clear Calc 11 ml/min Estimated GFR 10 L (59 - ) Glucose 112 H (65-110) mg/dL Lactic Acid 2.0 (0.7-2.0) mmol/L Calcium 8.2 L (8.4-10.2) mg/dL Magnesium 2.2 Cancelled (1.6-2.3) mg/dL Total Bilirubin 0.4 (0.2-1.3) mg/dL AST 501 H (17-59) U/L ALT 349 H (6-50) U/L Alkaline Phosphatase 61 (38-126) U/L Total Creatine Kinase 23 L Cancelled (55-170) U/L Troponin I 0.468 H* (0.000-0.034) ng/mL Total Protein (6.3-8.2) g/dL Albumin (3.5-5.1) g/dL Lipase (23-300) U/L TSH (0.465-4.680) uIU/mL Acetaminophen (10-30) ug/mL Influenza A (RT-PCR) (Negative) Influenza B (RT-PCR) (Negative) RSV (RT-PCR) (Negative) SARS-CoV-2 RNA (RT-PCR) (Negative) 04/23/25 04/23/25 04/23/25 Range/Units 04:10 04:10 04:14 WBC (4.5-10.0) K/mm3 RBC (4.6-6.20) M/mm3 Hgb (14.0-18.0) g/dL Hct (42.0-52.0) % MCV (80-100) fl MCH (26-34) pg MCHC (32-36) g/dl RDW (11.5-14.5) % Plt Count (150-375) k/mm3 MPV (7.4-10.4) fl Immature Gran % (Auto) (0-0.5) % Neut % (Auto) (45.5-73.1) % Lymph % (Auto) (18.3-44.2) % Sully % (Auto) (2.6-8.5) % Eos % (Auto) (0-4.4) % Baso % (Auto) (0.2-1.2) % Lymph # (Auto) (0.9-3.2) K/mm3 Sully # (Auto) (0.1-0.6) K/mm3 Eos # (Auto) (0-0.3) K/mm3 Baso # (Auto) (0.0-0.1) K/mm3 Abs Immat Gran (auto) (0.00-0.031) K/mm3 Absolute Neuts (auto) (1.3-6.7) K/mm3 Absolute Nucleated RBC (0.0-0.012) K/mm3 Band Neutrophils % Nucleated RBC % (0.0-0.2) % Platelet Estimate (Adequate) Hypochromasia Anisocytosis Schistocytes PT (11.1-14.7) Seconds INR APTT (22.3-36.8) Seconds Sodium (137-145) mmol/L Potassium (3.4-5.0) mmol/L Chloride (98-107) mmol/L Carbon Dioxide (22-30) mmol/L Anion Gap (4-12) mmol/L BUN (9-20) mg/dL Creatinine (0.7-1.3) mg/dL Estim Creat Clear Calc ml/min Estimated GFR (59 - ) Glucose (65-110) mg/dL Lactic Acid (0.7-2.0) mmol/L Calcium (8.4-10.2) mg/dL Magnesium (1.6-2.3) mg/dL Total Bilirubin (0.2-1.3) mg/dL AST (17-59) U/L ALT (6-50) U/L Alkaline Phosphatase (38-126) U/L Total Creatine Kinase (55-170) U/L Troponin I Cancelled (0.000-0.034) ng/mL Total Protein 6.3 (6.3-8.2) g/dL Albumin 3.6 (3.5-5.1) g/dL Lipase 27 (23-300) U/L TSH 0.819 Cancelled (0.465-4.680) uIU/mL Acetaminophen < 10 L (10-30) ug/mL Influenza A (RT-PCR) Negative (Negative) Influenza B (RT-PCR) Negative (Negative) RSV (RT-PCR) Negative (Negative) SARS-CoV-2 RNA (RT-PCR) Negative (Negative) 04/23/25 04/23/25 Range/Units 07:17 07:17 WBC (4.5-10.0) K/mm3 RBC (4.6-6.20) M/mm3 Hgb (14.0-18.0) g/dL Hct (42.0-52.0) % MCV (80-100) fl MCH (26-34) pg MCHC (32-36) g/dl RDW (11.5-14.5) % Plt Count (150-375) k/mm3 MPV (7.4-10.4) fl Immature Gran % (Auto) (0-0.5) % Neut % (Auto) (45.5-73.1) % Lymph % (Auto) (18.3-44.2) % Sully % (Auto) (2.6-8.5) % Eos % (Auto) (0-4.4) % Baso % (Auto) (0.2-1.2) % Lymph # (Auto) (0.9-3.2) K/mm3 Sully # (Auto) (0.1-0.6) K/mm3 Eos # (Auto) (0-0.3) K/mm3 Baso # (Auto) (0.0-0.1) K/mm3 Abs Immat Gran (auto) (0.00-0.031) K/mm3 Absolute Neuts (auto) (1.3-6.7) K/mm3 Absolute Nucleated RBC (0.0-0.012) K/mm3 Band Neutrophils % Nucleated RBC % (0.0-0.2) % Platelet Estimate (Adequate) Hypochromasia Anisocytosis Schistocytes PT (11.1-14.7) Seconds INR APTT (22.3-36.8) Seconds Sodium (137-145) mmol/L Potassium (3.4-5.0) mmol/L Chloride (98-107) mmol/L Carbon Dioxide (22-30) mmol/L Anion Gap (4-12) mmol/L BUN (9-20) mg/dL Creatinine (0.7-1.3) mg/dL Estim Creat Clear Calc ml/min Estimated GFR (59 - ) Glucose (65-110) mg/dL Lactic Acid (0.7-2.0) mmol/L Calcium (8.4-10.2) mg/dL Magnesium (1.6-2.3) mg/dL Total Bilirubin (0.2-1.3) mg/dL AST (17-59) U/L ALT (6-50) U/L Alkaline Phosphatase (38-126) U/L Total Creatine Kinase (55-170) U/L Troponin I Cancelled 0.476 H* (0.000-0.034) ng/mL Total Protein (6.3-8.2) g/dL Albumin (3.5-5.1) g/dL Lipase (23-300) U/L TSH (0.465-4.680) uIU/mL Acetaminophen (10-30) ug/mL Influenza A (RT-PCR) (Negative) Influenza B (RT-PCR) (Negative) RSV (RT-PCR) (Negative) SARS-CoV-2 RNA (RT-PCR) (Negative) Imaging Data Radiologist's impression: Impressions Chest X-Ray 04/23/25 05:30 Impression: Probable mild somewhat asymmetric pulmonary edema on the left side, versus possibly pneumonia. Minimal pleural effusions. Chest/Abdomen/Pelvis CT 04/23/25 07:40 Impression: Moderate bilateral pleural effusions with mild pulmonary edema and bibasilar atelectatic change. Small gallstone. Splenomegaly, uncertain etiology. Mild gallbladder wall thickening is nonspecific, probably most likely related to the presence of ascites. If there is concern for acute cholecystitis, consider HIDA scan. Marked prostatomegaly. ECG Data EKG #1: Attestation: I personally reviewed and interpreted this ECG as follows: ECG completion date: 04/23/25 ECG completion time: 04:03 Interpretation: Atrial fibrillation at a rate of 77 beats per minute. QRS 153. QT/QTC 462/494. Poor R-wave progression across the precordial leads. RBBB given QRS greater [id number]; RSR' M-shaped pattern in V1-V3; wide, slurred S wave in lateral leads (I, aVL, V5-6) Discharge Plan Discharge Clinical Impression: Abdominal pain, Normocytic anemia, Transaminitis, ESRD on dialysis, Atrial fibrillation with controlled ventricular rate, Non-ST elevation ND (NSTEMI), Bilateral pleural effusion, Enlarged prostate Patient Disposition: Still a Patient Condition: Stable Patient Language: Romanian Prescriptions: No Action carvedilol 25 mg tablet 25 mg PO BID aspirin 81 mg tablet,delayed release (DR/EC) 81 mg PO DAILY insulin lispro 100 unit/mL insulin pen 4 unit subcut .TIDAC loratadine [Claritin] 10 mg tablet 10 mg PO DAILY insulin glargine [Lantus Solostar U-100 Insulin] 100 unit/mL (3 mL) insulin pen 6 unit subcut HS atorvastatin 20 mg tablet 20 mg PO HS tamsulosin 0.4 mg Capsule 0.4 mg PO QHS Qty: 30 0RF furosemide 80 mg Tablet 80 mg PO BID Qty: 60 0RF finasteride [Proscar] 5 mg Tablet 5 mg PO QAM Qty: 30 0RF bisacodyl [Laxative (bisacodyl)] 10 mg suppository 10 mg RECTAL DAILY PRN (Reason: constipation) Rx Instructions: If no results from the MOM. magnesium citrate [Citroma] Solution 296 ml PO .AM PRN (Reason: constipation) Rx Instructions: If no results after enema. Fleet Enema 19-7 gram/118 mL enema 118 ml RECTAL DAILY PRN (Reason: constipation) Rx Instructions: If no results 1 day after the bisacodyl suppository was administered. gabapentin 100 mg capsule 100 mg PO TID liraglutide 0.6 mg/0.1 mL (18 mg/3 mL) pen injector 1.2 mg subcut HS Rx Instructions: To start on 02/20/25. magnesium hydroxide [Milk of Magnesia] 400 mg/5 mL suspension 30 ml PO HS PRN (Reason: constipation) Rx Instructions: If no bowel movement in 3 days. vitamin B complex Capsule 1 cap PO DAILY amlodipine 10 mg tablet 10 mg PO DAILY cinacalcet 90 mg PO DAILY acetaminophen 325 mg Tablet 650 mg PO Q4H PRN (Reason: Mild Pain (1-3) Or Fever) Qty: 60 0RF melatonin 3 mg tablet 3 mg PO HS tramadol 50 mg tablet 50 mg PO BID Incruse Ellipta 62.5 mcg/actuation blister with device 1 inh inhalation DAILY Combivent Respimat 20-100 mcg/actuation mist 1 puff inhalation Q6H PRN (Reason: shortness of breath or wheezing) loperamide 2 mg capsule 2 mg PO Q4H PRN (Reason: loose stool) Rx Instructions: administer after each loose stool until symptoms controlled; do not exceed 8 mg per 24 hrs levalbuterol HCl 1.25 mg/3 mL Solution For Nebulization 0.63 mg inhalation Q6HRT Qty: 30 0RF sevelamer carbonate 0.8 gram Powder In Packet 0.8 g PO TIDWM Qty: 60 0RF levalbuterol HCl 0.63 mg/3 mL solution for nebulization 0.63 mg inhalation Q6H PRN (Reason: shortness of breath or wheezing) Qty: 90 0RF Eliquis 2.5 mg Tablet 2.5 mg PO Q12HR Qty: 60 0RF pentoxifylline 400 mg tablet extended release 400 mg PO QPM Rx Instructions: must administer with a meal/food Follow-up/Referrals: Radha Carrion MD [Primary Care Provider] - Time of Disposition: 08:08
[2025-04-23 04:15] LABS: Hematocrit 30.5 % (42.0-52.0); Hemoglobin 8.8 g/dL (14.0-18.0); Immature Granulocyte Percent A 0.7 % (0-0.5); Lymphocytes Absolute Auto 0.45 K/mm3 (0.9-3.2); Mean Corpuscular HGB Conc 28.9 g/dl (32-36); Mean Corpuscular Hemoglobin 25.9 pg (26-34); Mean Corpuscular Volume 89.7 fl (80-100); Nucleated Red Blood Cells Absolute Auto 0.000 K/mm3 (0.0-0.012); Nucleated Red Blood Cells Perc 0.0 % (0.0-0.2); Platelet Count Result 300 k/mm3 (150-375); Red Blood Count 3.40 M/mm3 (4.6-6.20); White Blood Count 8.7 K/mm3 (4.5-10.0)
--- OUTSIDE RECORDS SUMMARY | 2025-04-23 04:23 | XMS_ITS | Clinical Summary ---
Author Organization [facility] Facility Address [address] [address] Care Team Providers Care Operations Label Clerk Name Role Phone Murali Dawkins MD [...] of 2 - PCV) 1964 Influenza Vaccine (#1) 2025 Hepatitis B Vaccine Aged Out No longe r eligible based on patient's age to complete this topic Insurance Medicare [facility] Care Teams Operations Label Clerk Relationship Specialty Start Date End Date Murali Dawkins MD [address] [place] [address] PCP - General Family Medicine 10/28/24
--- OUTSIDE RECORDS SUMMARY | 2025-04-23 04:23 | XMS_ITS | Encounter Summary ---
Author Organization [facility] Health Address [address] [place] [address] Care Team Providers Care Loom Blower Name Role Phone Mariza Carrion MD Primary Care Provider Encounter Details Date Type Department Care Team (Late Contact Info) Description 06/03/2018 [facility] Outpatient Visit [facility] [address] [place] [address] [place] [address] [facility] [address] [place] [id number] Social History Tobacco Use Types Packs/Day [...] (Late Contact Info) Description 10/02/2025 1:00 PM [facility] Appointment [facility] Vascular Services [address] [facility], [address] [place] [address] [place] [address] [phone] documented as of this encounter Visit Diagnoses Not on filedocumented in this encounter Care Teams Loom Blower Relationship Specialty Start Date End Date Mariza Carrion MD [address] [place] [address] PCP - General Family Medicine 08/26/18 documented as of this encounter
--- OUTSIDE RECORDS SUMMARY | 2025-04-23 04:23 | XMS_ITS ---
Author Organization [facility] Address [address] [place] [id number] Care Team Providers Care Construction Job Titles Name Role Phone Efren Hoyos MD Unavailable Dank Hicks MD Unavailable [phone] Mariza Carrion MD Primary Care Provider Dialysis Access Sites Type Status Location Placement Date Removal Da te AV fistula Active Left Upper Arm - Anterior AV fistula Inactive 10/23/2024 Procedures Procedure Name Priority Date/Time Associated Diagnosis Comments POCT HEMOGLOBIN A1C Routine 11/24/2024 10:01 AM SHIP SELF DEFENSE SYSTEM MK1 OPERATOR Type 2 diabetes mellitus with hyperglycemia, with long-term current use of insulin (CMS/HCC) EGFR Routine 10/25/2024 5:48 AM SHIP SELF DEFENSE SYSTEM MK1 OPERATOR HEPATITIS PANEL, ACUTE Routine 10/23/2024 2:45 PM SHIP SELF DEFENSE SYSTEM MK1 OPERATOR HM DIABETES EYE EXAM Routine 08/13/2024 [...] Read Routine (OP Routine) 12/05/2021 11:53 AM SHIP SELF DEFENSE SYSTEM MK1 OPERATOR End stage renal disease ([facility]) from Last 3 Months or [...] hyperglycemia, with long-term current use of insulin ([facility]) Use to test glucose 5 times daily 450 each 2 04/03/20 18 Active lancets (freestyle) 28 gauge miscIndications:T ype 2 diabetes mellitus with hyperglycemia, with long-term current use of insulin ([facility]) Use to test glucose 5 [...] hyperglycemia, with long-term current use of insulin ([facility]) Change sensor every 14 days [...] hyperglycemia, with long-term current use of insulin ([facility]) Use pads 5 times daily [...] hyperglycemia, with long-term current use of insulin ([facility]) Inject 0.5ML(1.5MG total) under the [...] hyperglycemia, with long-term current use of insulin ([facility]) Use to inject insulin 4x/day [...] 12/09/2019 Assessment & Plan (09/03/2023 9:28 AM SHIP SELF DEFENSE SYSTEM MK1 OPERATOR): Chronic problem. [facility] [place]: //Saturdays. LUE fistula. Assessment & Plan (03/05/2023 9:59 AM CDT): Chronic problem. [facility] [place]: //Saturdays. LUE fistula. Hyperlipidemia associated with type 2 diabetes fouzia victoria 05/22/2019 Assessment & Plan (11/24/2024 10:10 AM SHIP SELF DEFENSE SYSTEM MK1 OPERATOR): Chronic problem. Controlled on current Atorvastatin 20mg. Last lipid panel: 03/03/24 LDL=33, TG=75. Assessment & Plan (03/03/2024 8:45 AM CDT): Chronic problem. Controlled on current Atorvastatin 20mg. Last lipid panel: 03/05/23 LDL=57, [place]=670. Will update labs today. Does not mychart. Verified phone #/address to contact re: results. Assessment & Plan (09/03/2023 9:28 AM SHIP SELF DEFENSE SYSTEM MK1 OPERATOR): Chronic problem. Controlled on current Atorvastatin 20mg. Last lipid panel: 03/05/23 LDL=57, [place]=037. Assessment & Plan (03/05/2023 9:53 AM CDT): Chronic problem. Controlled on current Atorvastatin 20mg. Last lipid panel: 12/05/21 LDL=36, LN=875. Will update labs today. Verified phone #/address to contact re: results. Assessment & Plan (11/02/2022 2:47 PM SHIP SELF DEFENSE SYSTEM MK1 OPERATOR): Chronic, well controlled Low fat Low [...] Lipitor Assessment & Plan (09/07/2020 2:26 PM SHIP SELF DEFENSE SYSTEM MK1 OPERATOR): Goal of treatment , LDL cholesterol [...] panel Assessment & Plan (12/09/2019 2:03 PM SHIP SELF DEFENSE SYSTEM MK1 OPERATOR): Very high TG Add Vascepa Assessment [...] statin therapy Coronary artery disease invo lving gak[place] coronary artery of gakona heart without angina pectoris 10/04/2017 Hx of CABG 10/04/2017 Class 2 severe obesity due t o excess calories with serious comorbidity and body mass index (BMI) of 38.0 to 38.9 in adult 05/22/2017 Assessment & Plan (10/24/2018 12:58 PM SHIP SELF DEFENSE SYSTEM MK1 OPERATOR): Making progress with diet efforts. Continue Assessment & Plan (02/08/2018 11:01 AM CDT): Importance of following diet and exercising discussed. Hypertension associated with diabetes 05/22/2017 Assessment & Plan (11/24/2024 10:11 AM SHIP SELF DEFENSE SYSTEM MK1 OPERATOR): Chronic problem. Controlled on current losartan 100mg daily, amlodipine 10mg daily Assessment & Plan (03/03/2024 8:45 AM CDT): Chronic problem. BP elevated upon arrival. Controlled on current Carvedilol 25mg bid, losartan 100mg daily. No changes at this time. Will update labs today. Does not mychart. Verified phone #/address to contact re: results. Assessment & Plan (09/03/2023 9:28 AM SHIP SELF DEFENSE SYSTEM MK1 OPERATOR): Chronic problem. BP elevated upon arrival. [...] renal Assessment & Plan (10/24/2018 12:57 PM SHIP SELF DEFENSE SYSTEM MK1 OPERATOR): Controlled. Continue current medication plan and follow up with cardiology Assessment & Plan (06/18/2018 2:30 PM CDT): BP controlled on current medication plan. Continue follow up with nephrology Assessment & Plan (02/08/2018 11:00 AM CDT): Continue same medication Assessment & Plan (12/11/2017 10:24 AM SHIP SELF DEFENSE SYSTEM MK1 OPERATOR): Goal blood pressure is less than [...] mellitus Assessment & Plan (11/24/2024 10:16 AM SHIP SELF DEFENSE SYSTEM MK1 OPERATOR): Chronic problem, controlled on current regimen. [...] for skin breakdown and infection (sees web development intern regularly). Assessment & Plan (03/03/2024 9:19 AM [...] for skin breakdown and infection (sees web development intern regularly). Assessment & Plan (09/03/2023 9:27 AM SHIP SELF DEFENSE SYSTEM MK1 OPERATOR): Chronic problem, controlled on current regimen. [...] for skin breakdown and infection (sees web development intern regularly). Assessment & Plan (03/05/2023 10:13 AM CDT): Chronic problem, controlled on current regimen. Current medications: Trulicity 1.5mg weekly Lantus 6 units every morning Humalog 4 units before meals For sugars over 160: take 6 units For sugars over 200: take 8 units Seen by Retina Simla every 4-5 mos; letter sent to get [...] for skin breakdown and infection (sees web development intern regularly). Will update labs today. Verified phone #/address to contact re: results. Assessment & Plan (11/02/2022 2:43 PM SHIP SELF DEFENSE SYSTEM MK1 OPERATOR): Well controlled, with risk of hypoglycemia [...] Ross Assessment & Plan (09/07/2020 2:26 PM SHIP SELF DEFENSE SYSTEM MK1 OPERATOR): Hba1c was Lab Results Component Value [...] Trulicity. Assessment & Plan (12/09/2019 2:03 PM SHIP SELF DEFENSE SYSTEM MK1 OPERATOR): Your Hba1c today was: Lab Results Component Value Date HGBA1C 9.3 12/09/2019 meaning a 3 month average sugar of : 224 Your goal hba1c is under 7.0 to prevent fpc diabetes complications ( eye , kidney and [...] hypoglycemia. Assessment & Plan (10/24/2018 1:00 PM SHIP SELF DEFENSE SYSTEM MK1 OPERATOR): Stable BG pattern 100-140 reported since last adjustment to plan. No change today. BG goals reviewed. Advised to lower Lantus by 2 units if FBG are < 100 x 2 days/wk. For planned activity, reduce Humalog dose by 1/2 at preceding meal. Assessment & Plan (09/19/2018 11:11 AM SHIP SELF DEFENSE SYSTEM MK1 OPERATOR): Your Hba1c today was: Lab Results [...] time. Assessment & Plan (12/11/2017 10:47 AM SHIP SELF DEFENSE SYSTEM MK1 OPERATOR): Hba1c was .5.4 Today, 1800 calorie, [...] Lantus by 5 more unit. [facility] & Plan (05/22/2017 11:37 [...] 0.6 oz pur e alcohol) [facility] [employer] Answer Date Recorded In the past 12 months has [employer], [employer], or water [employer] threatened to shut off services in [...] How often do you attend chur or anabaptist services? Never 10/23/2024 Do you belong to any clubs o r organizations such as islam groups, unions, fraternal or athletic groups, or [...] any time in the past 12 m [facility], were you homeless or living in a custodial (including now)? No 10/23/2024 Personal Safety Answer Date Recorded Have you ever been in or are you currently in a harmful physical or emotional relationship or is someone making you feel afraid or unsafe? Denies 10/22/2024 Sex and Gender Information Value Date Recorded Sex Assigned at Not on file Legal Sex Male 7:27 PM SHIP SELF DEFENSE SYSTEM MK1 OPERATOR Gender Identity Not on file Sexual Orientation Not on file Last Filed Vital Signs Vital Sign Reading Time Taken Comments Blood Pressure 102/58 11/24/2024 9:58 AM SHIP SELF DEFENSE SYSTEM MK1 OPERATOR Pulse 75 11/24/2024 9:58 AM SHIP SELF DEFENSE SYSTEM MK1 OPERATOR Temperature 36.3 C (97.3 F) 10/25/2024 2:15 PM SHIP SELF DEFENSE SYSTEM MK1 OPERATOR Respiratory Rate 20 11/24/2024 9:58 AM SHIP SELF DEFENSE SYSTEM MK1 OPERATOR Oxygen Saturation 100% 10/25/2024 1:15 PM SHIP SELF DEFENSE SYSTEM MK1 OPERATOR Inhaled Oxygen Concentration - - Weight 91.3 kg (201 lb 4.5 oz) 10/22/2024 8:29 P M [employer] S[employer]ENSE SYSTEM MK1 OPERATOR Height 170.2 cm (5' 7.01) 11/24/2024 9:58 AM CS T Body Mass Index 31.52 10/22/2024 8:29 PM SHIP SELF DEFENSE SYSTEM MK1 OPERATOR Results * POCT hemoglobin A1c (11/24/2024 10:01 AM SHIP SELF DEFENSE SYSTEM MK1 OPERATOR) Hemoglobin A1C, POC 4.9 4.0 - 5.6 % Blood 11/24/2024 10:0 1 AM SHIP SELF [employer] SYSTEM MK1 OPERATOR us Bertha Pinto WATCHGUARD POINT OF CARE TEST ORDERA BLES Final Result * (ABNORMAL) eGFR (10/25/2024 5:48 AM SHIP SEL[employer] SYSTEM MK1 OPERATOR) eGFR 9(L) >=60 mL/min/1. 73 m2 [...] last reviewed 2021. Blood 10/25/2024 5:48 AM SHIP SELF DEFENSE SYSTEM MK1 OPERATOR 10/25/2024 6:03 AM SHIP SELF DEFENSE SYSTEM MK1 OPERATOR Raisa Scherer WATCHGUARD LAB BLOOD ORDERABLES Jeaneth l Result Performing Organization Address City/[facility] Co de Phone Number NIDIA COTE [address] [address] [place] [address] * Hepatitis panel, acute Blood (10/23/2024 2:45 PM SHIP SELF DEFENSE SYSTEM MK1 OPERATOR) Hep A IgM Nonreactive Nonreactive Comment: Interpretive Data: If Hep A IgM Ab is reported as Equivocal, a new sample should be drawn in two weeks for testing. Current interpretive data was last revised on 20. Hep B core IgM Nonreactive Nonreactive [facility] Comment: Interpretive Data If HepB Core [...] [facility] Blood 10/23/2024 2:45 PM SHIP SELF DEFENSE SYSTEM MK1 OPERATOR 10/23/2024 2:46 PM SHIP SELF DEFENSE SYSTEM MK1 OPERATOR Sherrill Christianson MD LAB MICROBIOLOGY - GENERAL ORDERABLES Final Result Performing Organization Address City/[facility]/ZIP Co de Phone Number NIDIA COTE [address] [place] [address] * (ABNORMAL) DIABETES EYE EXAM (08/13/2024 9:40 [...] LAB URINE ORDERABLES Jeaneth l Result NIDIA [id number] Department [place] [address] * (ABNORMAL) Lipid panel (03/03/2024 9:29 AM [...] 03/03/2024 4:40 PM CDT us Bertha Pinto WATCHGUARD LAB BLOOD ORDERABLES Jeaneth jacey Result NIDIA [address] [address] Department [place] [address] * CT Abdomen Pelvis WO Contrast (12/05/2021 11:53 AM SHIP SELF DEFENSE SYSTEM MK1 OPERATOR) Anatomical Region Laterality Modality Body N/A Computed Tomogra phy 12/05/2021 12:0 4 PM SHIP SELF DEFENSE SYSTEM MK1 OPERATOR Impressions 12/05/2021 12:04 PM SHIP SELF DEFENSE SYSTEM MK1 OPERATOR Bone windows show no suspicious lytic or blastic lesions. IMPRESSION: 1. 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 2. 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 Electronically signed by: Ryan Cameron M.D. Narrative 12/05/2021 12:04 PM SHIP SELF DEFENSE SYSTEM MK1 OPERATOR EXAMINATION: Computed tomography of the abdomen/pelvis [...] adeniform shape. There is atrophy of both gakona kidneys. Adjacent fat stranding is likely related [...] adeniform shape. There is atrophy of both gakona kidneys. Adjacent fat stranding is likely related [...]
--- OUTSIDE RECORDS SUMMARY | 2025-04-23 04:24 | XMS_ITS | Referral Summary ---
Author Organization [facility] Address [facility] [place] [address] Care Team Providers Care Agricultural Agent Name Role Phone Efren Hoyos MD Unavailable Dank Hicks MD Unavailable [phone] Mariza Carrion MD Primary Care Provider Allergies [...] use of insulin ([facility]) Use pads 5 times daily 200 each [...] 12/09/2019 Assessment & Plan (09/03/2023 9:28 AM COMPUTER TECHNOLOGIST): Chronic problem. [facility] in [place]: //Saturdays. LUE fistula. Assessment & Plan (03/05/2023 9:59 AM CDT): Chronic problem. [facility] [place]: //Saturdays. LUE fistula. Hyperlipidemia associated with type 2 diabetes fouzia victoria 05/22/2019 Assessment & Plan (11/24/2024 10:10 AM COMPUTER TECHNOLOGIST): Chronic problem. Controlled on current Atorvastatin 20mg. Last lipid panel: 03/03/24 LDL=33, TG=75. Assessment & Plan (03/03/2024 8:45 AM CDT): Chronic problem. Controlled on current Atorvastatin 20mg. Last lipid panel: 03/05/23 LDL=57, RX=839. Will update labs today. Does not mychart. Verified phone #/address to contact re: results. Assessment & Plan (09/03/2023 9:28 AM COMPUTER TECHNOLOGIST): Chronic problem. Controlled on current Atorvastatin 20mg. Last lipid panel: 03/05/23 LDL=57, DS=417. Assessment & Plan (03/05/2023 9:53 AM CDT): Chronic problem. Controlled on current Atorvastatin 20mg. Last lipid panel: 12/05/21 LDL=36, ML=627. Will update labs today. Verified phone #/address to contact re: results. Assessment & Plan (11/02/2022 2:47 PM COMPUTER TECHNOLOGIST): Chronic, well controlled Low fat Low cholesterol [...] Lipitor Assessment & Plan (09/07/2020 2:26 PM COMPUTER TECHNOLOGIST): Goal of treatment , LDL cholesterol less [...] panel Assessment & Plan (12/09/2019 2:03 PM COMPUTER TECHNOLOGIST): Very high TG Add Vascepa Assessment & [...] statin therapy Coronary artery disease invo lving [place]bil[place] coronary artery of [place] heart without angina pectoris 10/04/2017 Hx of CABG 10/04/2017 Class 2 severe obesity due t o excess calories with serious comorbidity and body mass index (BMI) of 38.0 to 38.9 in adult 05/22/2017 Assessment & Plan (10/24/2018 12:58 PM COMPUTER TECHNOLOGIST): Making progress with diet efforts. Continue Assessment & Plan (02/08/2018 11:01 AM CDT): Importance of following diet and exercising discussed. Hypertension associated with diabetes 05/22/2017 Assessment & Plan (11/24/2024 10:11 AM COMPUTER TECHNOLOGIST): Chronic problem. Controlled on current losartan 100mg daily, amlodipine 10mg daily Assessment & Plan (03/03/2024 8:45 AM CDT): Chronic problem. BP elevated upon arrival. Controlled on current Carvedilol 25mg bid, losartan 100mg daily. No changes at this time. Will update labs today. Does not mychart. Verified phone #/address to contact re: results. Assessment & Plan (09/03/2023 9:28 AM COMPUTER TECHNOLOGIST): Chronic problem. BP elevated upon arrival. Controlled [...] renal Assessment & Plan (10/24/2018 12:57 PM COMPUTER TECHNOLOGIST): Controlled. Continue current medication plan and follow up with cardiology Assessment & Plan (06/18/2018 2:30 PM CDT): BP controlled on current medication plan. Continue follow up with nephrology Assessment & Plan (02/08/2018 11:00 AM CDT): Continue same medication Assessment & Plan (12/11/2017 10:24 AM COMPUTER TECHNOLOGIST): Goal blood pressure is less than 140/85 [...] mellitus Assessment & Plan (11/24/2024 10:16 AM COMPUTER TECHNOLOGIST): Chronic problem, controlled on current regimen. A1c [...] daily for skin breakdown and infection (sees house mover helper regularly). Assessment & Plan (03/03/2024 9:19 [...] daily for skin breakdown and infection (sees house mover helper regularly). Assessment & Plan (09/03/2023 9:27 AM COMPUTER TECHNOLOGIST): Chronic problem, controlled on current regimen. A1c [...] daily for skin breakdown and infection (sees house mover helper regularly). Assessment & Plan (03/05/2023 10:13 AM CDT): Chronic problem, controlled on current regimen. Current medications: Trulicity 1.5mg weekly Lantus 6 units every morning Humalog 4 units before meals For sugars over 160: take 6 units For sugars over 200: take 8 units Seen by Retina Stoutland every 4-5 mos; letter sent to get [...] daily for skin breakdown and infection (sees house mover helper regularly). Will update labs today. Verified phone #/address to contact re: results. Assessment & Plan (11/02/2022 2:43 PM COMPUTER TECHNOLOGIST): Well controlled, with risk of hypoglycemia Insuli [...] Ross Assessment & Plan (09/07/2020 2:26 PM COMPUTER TECHNOLOGIST): Hba1c was Lab Results Component Value Date [...] Trulicity. Assessment & Plan (12/09/2019 2:03 PM COMPUTER TECHNOLOGIST): Your Hba1c today was: Lab Results Component Value Date HGBA1C 9.3 12/09/2019 meaning a 3 month average sugar of : 224 Your goal hba1c is under 7.0 to prevent termite control technician diabetes complications ( eye , kidney and [...] hypoglycemia. Assessment & Plan (10/24/2018 1:00 PM COMPUTER TECHNOLOGIST): Stable BG pattern 100-140 reported since last adjustment to plan. No change today. BG goals reviewed. Advised to lower Lantus by 2 units if FBG are < 100 x 2 days/wk. For planned activity, reduce Humalog dose by 1/2 at preceding meal. Assessment & Plan (09/19/2018 11:11 AM COMPUTER TECHNOLOGIST): Your Hba1c today was: Lab Results Component Value Date HGBA1C 5.1 09/19/2018 meaning a 3 month average sugar of : 81 Your goal hba1c is under 7.0 to prevent group home diabetes complications ( eye , kidney [...] time. Assessment & Plan (12/11/2017 10:47 AM COMPUTER TECHNOLOGIST): Hba1c was .5.4 Today, 1800 calorie, consistent [...] 05/22/2019 Assessment & Plan (09/19/2018 11:20 AM COMPUTER TECHNOLOGIST): Prevention and treatment of hypoglycemia were discussed [...] therapy Assessment & Plan (10/24/2018 12:57 PM COMPUTER TECHNOLOGIST): Check lipid panel Assessment & Plan (06/18/2018 2:31 PM CDT): Continue statin therapy Assessment & Plan (02/08/2018 11:00 AM CDT): Continue atorvastatin Assessment & Plan (12/11/2017 10:45 AM COMPUTER TECHNOLOGIST): Goal of treatment , LDL cholesterol less [...] drink = 0.6 oz pur e alcohol) [facility] Utilities Answer Date Recorded In the [...] often do you attend chur ch or cheondoism services? Never 10/23/2024 Do you belong to any clubs o r organizations such as faith groups, unions, fraternal or athletic groups, or [...] on file Legal Sex Male 7:27 PM COMPUTER TECHNOLOGIST Gender Identity Not on file Sexual Orientation Not on file Last Filed Vital Signs Vital Sign Reading Time Taken Comments Blood Pressure 102/58 11/24/2024 9:58 AM COMPUTER TECHNOLOGIST Pulse 75 11/24/2024 9:58 AM COMPUTER TECHNOLOGIST Temperature 36.3 C (97.3 F) 10/25/2024 2:15 PM COMPUTER TECHNOLOGIST Respiratory Rate 20 11/24/2024 9:58 AM COMPUTER TECHNOLOGIST Oxygen Saturation 100% 10/25/2024 1:15 PM COMPUTER TECHNOLOGIST Inhaled Oxygen Concentration - - Weight 91.3 kg (201 lb 4.5 oz) 10/22/2024 8:29 P M COMPUTER TECHNOLOGIST Height 170.2 cm (5' 7.01) 11/24/2024 9:58 AM CS T Body Mass Index 31.52 10/22/2024 8:29 PM COMPUTER TECHNOLOGIST Plan of Treatment Not on file Medical Devices Implanted Type Area Shactor Helper Device Identifier Shelf Expiration Date Model / Serial / Lot [employer] Micra 2 Av Synchronous Leadless Ventricular Pacemaker [id number] - [id number] - [id number] Implanted:Qty: 1 on 10/24/2024 by Darien Jamil Jr., MD at [employer] 02/16/2026 [id number] / [id number] / Procedures Procedure Name Priority Date/Time Associated Diagnosis Comments POCT HEMOGLOBIN A1C Routine 11/24/2024 10:01 AM COMPUTER TECHNOLOGIST Type 2 diabetes mellitus with hyperglycemia, with long-term current use of insulin (CMS/HCC) EGFR Routine 10/25/2024 5:48 AM COMPUTER TECHNOLOGIST HEPATITIS PANEL, ACUTE Routine 10/23/2024 2:45 PM COMPUTER TECHNOLOGIST HM DIABETES EYE EXAM Routine 08/13/2024 9:40 [...] Read Routine (OP Routine) 12/05/2021 11:53 AM COMPUTER TECHNOLOGIST End stage renal disease (HCC) from Last 3 Months or Most Recently Relevant to Health Maintenance Results * POCT hemoglobin A1c (11/24/2024 10:01 AM COMPUTER TECHNOLOGIST) Pathologist [facility] Hemoglobin A1C, POC 4.9 4.0 - 5.6 % Blood 11/24/2024 10:0 1 AM COMPUTER TECHNOLOGIST us Bertha Pinto NP POINT OF CARE TEST ORDERA BLES Final Result * (ABNORMAL) eGFR (10/25/2024 5:48 AM COMPUTER TECHNOLOGIST) Pathologist [facility] eGFR 9(L) >=60 mL/min/1. 73 m2 Comment: [...] last reviewed 2021. Blood 10/25/2024 5:48 AM COMPUTER TECHNOLOGIST 10/25/2024 6:03 AM COMPUTER TECHNOLOGIST Raisa Scherer NP LAB BLOOD ORDERABLES Jeaneth jacey Result NIDIA [id number] Department [place] [address] * Hepatitis panel, acute Blood (10/23/2024 2:45 PM COMPUTER TECHNOLOGIST) Hep A IgM Nonreactive Nonreactive Comment: Interpretive Data: If Hep A IgM Ab is reported as Equivocal, a new sample should be drawn in two weeks for testing. Current interpretive data was last revised on 20. Hep B core IgM Nonreactive Nonreactive [facility] Comment: Interpretive Data If HepB Core IgM Ab is reported as Equivocal, a new sample should be drawn in two weeks for testing. Current interpretive data was last revised on 20. Hep C Ab Nonreactive Nonreactive [facility] Comment: Interpretive Data Nonreactive: Antibodies to [...] on 2020. HepBsAg Nonreactive Nonreactive [facility] Blood 10/23/2024 2:45 PM COMPUTER TECHNOLOGIST 10/23/2024 2:46 PM COMPUTER TECHNOLOGIST Sherrill Christianson MD LAB MICROBIOLOGY - GENERAL ORDERABLES Final Result Performing Organization Address City/[facility] Co de Phone Number NIDIA [address] Department of Laboratories [place], [place] [id number] * (ABNORMAL) DIABETES EYE EXAM (08/13/2024 9:40 [...] ORDERABLES Jeaneth l Result Performing Organization Address [facility] Co de Phone Number NIDIA [address] [address] [place] [address] * (ABNORMAL) Lipid panel (03/03/2024 9:29 AM [...] LAB BLOOD ORDERABLES Jeaneth l Result ALYSSAALANNAH [address] Department [place] [address] * CT Abdomen Pelvis WO Contrast (12/05/2021 11:53 AM COMPUTER TECHNOLOGIST) Anatomical Region Laterality Modality Body N/A Computed Tomogra phy 12/05/2021 12:0 4 PM COMPUTER TECHNOLOGIST Impressions 12/05/2021 12:04 PM COMPUTER TECHNOLOGIST Bone windows show no suspicious lytic or blastic lesions. IMPRESSION: 1. 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 2. 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 Electronically signed by: Ryan Cameron M.D. Narrative 12/05/2021 12:04 PM COMPUTER TECHNOLOGIST EXAMINATION: Computed tomography of the abdomen/pelvis without [...] adeniform shape. There is atrophy of both [place]i kidneys. Adjacent fat stranding is likely related [...] adeniform shape. There is atrophy of both [place]-biloxi kidneys. Adjacent fat stranding is likely related [...] LIFE MEDICARE MEDICARE FOR LIFE Care Teams Agricultural Agent Relationship Specialty Start Date End Date Mariza Carrion MD [address] [facility] [address] [place] [address] PCP - General Family Practice 03/05/23 Efren Hoyos MD Referring Physician Ophthalmology 06/16/19 Dank Hicks MD [address] [facility] [address] [place] [address] Consulting Physician Cardiology 10/11/21
--- OUTSIDE RECORDS SUMMARY | 2025-04-23 04:24 | XMS_ITS | Clinical Summary ---
Author Organization [facility] Address [address] [place] [address] Care Team Providers Care Gore Maker Name Role Phone Efern Hoyos MD Unavailable Dank Hicks MD Unavailable [phone] Mariza Carrion MD Primary Care Provider Allergies [...] Assessment & Plan (09/03/2023 9:28 AM COMPUTER SYSTEMS TECHNOLOGY INSTRUCTOR): Chronic problem. [facility] [place]: //Saturdays. LUE fistula. Assessment & Plan (03/05/2023 9:59 AM CDT): Chronic problem. [facility] [place]: //Saturdays. LUE fistula. Hyperlipidemia associated with type 2 diabetes fouzia victoria 05/22/2019 Assessment & Plan (11/24/2024 10:10 AM COMPUTER SYSTEMS TECHNOLOGY INSTRUCTOR): Chronic problem. Controlled on current Atorvastatin 20mg. Last lipid panel: 03/03/24 LDL=33, TG=75. Assessment & Plan (03/03/2024 8:45 AM CDT): Chronic problem. Controlled on current Atorvastatin 20mg. Last lipid panel: 03/05/23 LDL=57, UA=377. Will update labs today. Does not mychart. Verified phone #/address to contact re: results. Assessment & Plan (09/03/2023 9:28 AM COMPUTER SYSTEMS TECHNOLOGY INSTRUCTOR): Chronic problem. Controlled on current Atorvastatin 20mg. Last lipid panel: 03/05/23 LDL=57, OU=815. Assessment & Plan (03/05/2023 9:53 AM CDT): Chronic problem. Controlled on current Atorvastatin 20mg. Last lipid panel: 12/05/21 LDL=36, ZU=080. Will update labs today. Verified phone #/address to contact re: results. 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 Continue Assessment & Plan (02/08/2018 11:01 AM CDT): Importance of following diet and exercising discussed. Hypertension associated with diabetes 05/22/2017 Assessment & Plan (11/24/2024 10:11 AM COMPUTER SYSTEMS TECHNOLOGY INSTRUCTOR): Chronic problem. Controlled on current losartan 100mg daily, amlodipine 10mg daily Assessment & Plan (03/03/2024 8:45 AM CDT): Chronic problem. BP elevated upon arrival. Controlled on current Carvedilol 25mg bid, losartan 100mg daily. No changes at this time. Will update labs today. Does not mychart. Verified phone #/address to contact re: results. Assessment & Plan (09/03/2023 9:28 AM COMPUTER SYSTEMS TECHNOLOGY INSTRUCTOR): Chronic problem. BP elevated upon arrival. Controlled [...] Assessment & Plan (10/24/2018 12:57 PM COMPUTER SYSTEMS TECHNOLOGY INSTRUCTOR): Controlled. Continue current medication plan and follow up with cardiology Assessment & Plan (06/18/2018 2:30 PM CDT): BP controlled on current medication plan. Continue follow up with nephrology Assessment & Plan (02/08/2018 11:00 AM CDT): Continue same medication Assessment & Plan (12/11/2017 10:24 AM COMPUTER SYSTEMS TECHNOLOGY INSTRUCTOR): Goal blood pressure is less than 140/85 [...] Assessment & Plan (11/24/2024 10:16 AM COMPUTER SYSTEMS TECHNOLOGY INSTRUCTOR): Chronic problem, controlled on current regimen. A1c [...] daily for skin breakdown and infection (sees hhas regularly). Assessment & Plan (03/03/2024 9:19 AM [...] daily for skin breakdown and infection (sees hhas regularly). Assessment & Plan (09/03/2023 9:27 AM COMPUTER SYSTEMS TECHNOLOGY INSTRUCTOR): Chronic problem, controlled on current regimen. A1c [...] daily for skin breakdown and infection (sees hhas regularly). Assessment & Plan (03/05/2023 10:13 AM CDT): Chronic problem, controlled on current regimen. Current medications: Trulicity 1.5mg weekly Lantus 6 units every morning Humalog 4 units before meals For sugars over 160: take 6 units For sugars over 200: take 8 units Seen by [facility] every 4-5 mos; letter sent to get [...] daily for skin breakdown and infection (sees hhas regularly). Will update labs today. Verified phone #/address to contact re: results. 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 No change today. BG goals reviewed. Advised to lower Lantus by 2 units if FBG are < 100 x 2 days/wk. For planned activity, reduce Humalog dose by 1/2 at preceding meal. Assessment & Plan (09/19/2018 11:11 AM COMPUTER SYSTEMS TECHNOLOGY INSTRUCTOR): Your Hba1c today was: Lab Results Component [...] Assessment & Plan (12/11/2017 10:47 AM COMPUTER SYSTEMS TECHNOLOGY INSTRUCTOR): Hba1c was .5.4 Today, 1800 calorie, consistent [...] Assessment & Plan (09/19/2018 11:20 AM COMPUTER SYSTEMS TECHNOLOGY INSTRUCTOR): Prevention and treatment of hypoglycemia were discussed [...] Assessment & Plan (10/24/2018 12:57 PM COMPUTER SYSTEMS TECHNOLOGY INSTRUCTOR): Check lipid panel Assessment & Plan (06/18/2018 2:31 PM CDT): Continue statin therapy Assessment & Plan (02/08/2018 11:00 AM CDT): Continue atorvastatin Assessment & Plan (12/11/2017 10:45 AM COMPUTER SYSTEMS TECHNOLOGY INSTRUCTOR): Goal of treatment , LDL cholesterol less [...] 4 01/05/2022 Overview (01/26/2017): CKD stage 3 Surgical History Surgery Date Site/Laterality Comments OTHER [...] drink = 0.6 oz pur e alcohol) [facility] [employer] Answer Date Recorded In the past 12 months has th e electric, gas, oil, or water kingsky threatened to shut off services in your [...] any clubs o r organizations such as oriental orthodox groups, unions, fraternal or athletic groups, or [...] any time in the past 12 m [facility], were you homeless or living [...] file Legal Sex Male 7:27 PM COMPUTER SYSTEMS TECHNOLOGY INSTRUCTOR Gender Identity Not on file Sexual Orientation Not on file Obstetrics History Last Filed Vital Signs Vital Sign Reading Time Taken Comments Blood Pressure 102/58 11/24/2024 9:58 AM COMPUTER SYSTEMS TECHNOLOGY INSTRUCTOR Pulse 75 11/24/2024 9:58 AM COMPUTER SYSTEMS TECHNOLOGY INSTRUCTOR Temperature 36.3 C (97.3 F) 10/25/2024 2:15 PM COMPUTER SYSTEMS TECHNOLOGY INSTRUCTOR Respiratory Rate 20 11/24/2024 9:58 AM COMPUTER SYSTEMS TECHNOLOGY INSTRUCTOR Oxygen Saturation 100% 10/25/2024 1:15 PM COMPUTER SYSTEMS TECHNOLOGY INSTRUCTOR Inhaled Oxygen Concentration - - Weight 91.3 kg (201 lb 4.5 oz) 10/22/2024 8:29 P M COMPUTER SYSTEMS TECHNOLOGY INSTRUCTOR Height 170.2 cm (5' 7.01) 11/24/2024 9:58 AM CS T Body Mass Index 31.52 10/22/2024 8:29 PM COMPUTER SYSTEMS TECHNOLOGY INSTRUCTOR Plan of Treatment Health Maintenance Due Date [...] 02/19, 09/03/2023, Additional history exists Influenza Vaccine (#1) 2025 Dilated Eye Exam 08/13/2025 08/13/2024, , 01/03/2023, Additional history exists Fall Risk Assessment 10/25/2025 10/25/2024 eGFR 10/25/2025 10/25/2024, 12/2024, 10/23/2024, Additional history exists Abdominal Aortic Aneurysm (A AA) Screen Completed 12/05/2021 Pneumococcal vaccine 65+ Completed 09/27/2023, 04/22 Hepatitis B Screening Completed 10/23/2024 Hepatitis C Screening Completed 10/23/2024, 022 Medical Devices Implanted Type Area Cloth Picker Device Identifier Shelf Expiration Date Model / Serial / Lot [employer]onic [employer] Micra 2 Av Synchronous Leadless Ventricular Pacemaker [id number] - [id number] - [id number] Implanted:Qty: 1 on 10/24/2024 by Darien Jamil Jr., MD at [facility] [employer] 02/16/2026 [id number] / [id number] / Procedures Procedure Name Priority Date/Time Associated Diagnosis Comments POCT HEMOGLOBIN A1C Routine 11/24/2024 10:01 AM COMPUTER SYSTEMS TECHNOLOGY INSTRUCTOR Type 2 diabetes mellitus with hyperglycemia, with long-term current use of insulin (CMS/HCC) EGFR Routine 10/25/2024 5:48 AM COMPUTER SYSTEMS TECHNOLOGY INSTRUCTOR HEPATITIS PANEL, ACUTE Routine 10/23/2024 2:45 PM COMPUTER SYSTEMS TECHNOLOGY INSTRUCTOR HM DIABETES EYE EXAM Routine 08/13/2024 9:40 [...] Routine (OP Routine) 12/05/2021 11:53 AM COMPUTER SYSTEMS TECHNOLOGY INSTRUCTOR End stage renal disease (HCC) from Last 3 Months or Most Recently Relevant to Health Maintenance Results * POCT hemoglobin A1c (11/24/2024 10:01 AM COMPUTER SYSTEMS TECHNOLOGY INSTRUCTOR) Hemoglobin A1C, POC 4.9 4.0 - 5.6 % Blood 11/24/2024 10:0 1 AM COMPUTER SYSTEMS TECHNOLOGY INSTRUCTOR us Bertha Pinto AIRCRAFT STEEL FABRICATOR POINT OF CARE TEST ORDERA BLES Final Result * (ABNORMAL) eGFR (10/25/2024 5:48 AM COMPUTER SYSTEMS TECHNOLOGY INSTRUCTOR) eGFR 9(L) >=60 mL/min/1. 73 m2 Comment: [...] Inclusion of Race in Diagnosing Kidney Disease, TRAVISN 2020). The CKD-EPI equation should not be used for patients with unstable renal function and has not been validated in children and those over 70. Current interpretive data was last reviewed 2021. Blood 10/25/2024 5:48 AM COMPUTER SYSTEMS TECHNOLOGY INSTRUCTOR 10/25/2024 6:03 AM COMPUTER SYSTEMS TECHNOLOGY INSTRUCTOR Raisa Scherer AIRCRAFT STEEL FABRICATOR LAB BLOOD ORDERABLES Jeaneth l Result Performing Organization Address [facility] Co de Phone Number [facility] [address] [place] [address] * Hepatitis panel, acute Blood (10/23/2024 2:45 PM COMPUTER SYSTEMS TECHNOLOGY INSTRUCTOR) Hep A IgM Nonreactive Nonreactive Comment: Interpretive Data: If Hep A IgM Ab is reported as Equivocal, a new sample should be drawn in two weeks for testing. Current interpretive data was last revised on 20. Hep B core IgM Nonreactive Nonreactive [facility] Comment: Interpretive Data If HepB Core IgM Ab is reported as Equivocal, a new sample should be drawn in two weeks for testing. Current interpretive data was last revised on 20. Hep C Ab Nonreactive Nonreactive [facility] Comment: Interpretive Data Nonreactive: Antibodies to HCV [...] revised on 2020. HepBsAg Nonreactive Nonreactive [facility] Blood 10/23/2024 2:45 PM COMPUTER SYSTEMS TECHNOLOGY INSTRUCTOR 10/23/2024 2:46 PM COMPUTER SYSTEMS TECHNOLOGY INSTRUCTOR Sherrill Christianson MD LAB MICROBIOLOGY - GENERAL ORDERABLES Final Result Performing Organization Address [facility] Co de Phone Number [facility] [address] [place], [place] [id number] * (ABNORMAL) DIABETES EYE EXAM (08/13/2024 9:40 AM CDT) Historical Provider HEALTH MAINTENANCE Edited Result - Final * (ABNORMAL) Albumin Creatinine Ratio, Urine (03/10/2024 8:46 AM CDT) Albumin Ur 3,169.5 mg/L Comment: Interpretive Data No reference range established. Current interpretive data was last revised 2019. Creatinine Ur 47.7 mg/dL [facility] Comment: Interpretive Data No reference range established. Current interpretive data was last revised 2019. Albumin Creatinine Ratio, Ur 6,645(H) 1 - 29 mg/g [facility] Urine 03/10/2024 8:46 AM CDT 03/11/2024 9:11 AM CDT Bertha Pinto NP LAB URINE ORDERABLES Jeaneth l Result [facility] [address] Department [place] [address] * (ABNORMAL) Lipid panel (03/03/2024 9:29 AM [...] BLOOD ORDERABLES Jeaneth l Result [facility] [address] Department [place] [address] * CT Abdomen Pelvis WO Contrast (12/05/2021 11:53 AM COMPUTER SYSTEMS TECHNOLOGY INSTRUCTOR) Anatomical Region Laterality Modality Body N/A Computed Tomogra phy 12/05/2021 12:0 4 PM COMPUTER SYSTEMS TECHNOLOGY INSTRUCTOR Impressions 12/05/2021 12:04 PM COMPUTER SYSTEMS TECHNOLOGY INSTRUCTOR Bone windows show no suspicious lytic or blastic lesions. IMPRESSION: 1. 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 2. 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 Electronically signed by: Ryan Cameron M.D. Narrative 12/05/2021 12:04 PM COMPUTER SYSTEMS TECHNOLOGY INSTRUCTOR EXAMINATION: Computed tomography of the abdomen/pelvis without [...] adeniform shape. There is atrophy of both nooksack kidneys. Adjacent fat stranding is likely related [...] artery secondary to atherosclerotic disease. Procedure Note Rayn Cameron MD - 12/05/2021 EXAMINATION: Computed tomography [...] adeniform shape. There is atrophy of both nooksack kidneys. Adjacent fat stranding is likely related [...] LIFE MEDICARE MEDICARE FOR LIFE Care Teams Gore Maker Relationship Specialty Start Date End Date Mariza Carrion MD [address] [address] PCP - General Family Practice 03/05/23 Efren Hoyos MD Referring Physician Ophthalmology 06/16/19 Dank Hicks MD [address] [address] Consulting Physician Cardiology 10/11/21
--- OUTSIDE RECORDS SUMMARY | 2025-04-23 04:24 | XMS_ITS | Clinical Summary ---
Author Organization [facility] Address [address] [place] [phone] Phone Care Team Providers Care Sap Bw Consultant Name Role Phone Mariza Carrion MD Primary [...] dir 0 11/12/2017 Active ergocalciferol (VITAMIN D-2) 44801 units capsule Take 1 capsule (50,000 Units total) by mouth 2 (two) times a week. 28 capsule 3 03/27/2019 Active hydrALAZINE (APRESOLINE) 100 MG tablet TAKE 1 TABLET TWICE A DAY 180 tablet 4 04/30/2019 Active aspirin 81 MG chewable tablet one p.o. qd 05/23/2012 A ctive ergocalciferol (VITAMIN D-2) 73185 units capsule one p.o. capsule once a [...] and Medium Risk (2 of 3 - PCV20 or PCV21) 2013 2012 Influenza Vaccine (Season Ended) 2025 Insurance MEDICARE Care Teams Sap Bw Consultant Relationship Specialty Start Date End Date Mariza Carrion MD [address] [place] [address] PCP - General Internal Medicine 01/06/19
--- OUTSIDE RECORDS SUMMARY | 2025-04-23 04:24 | XMS_ITS | Clinical Summary ---
Author Organization [employer] Address [address] [place] [address] Care Team Providers Care Machine Striper Name Role Phone Mariza Carrion MD Primary Care Provider Source Comments [id number],non-owned Affiliates and Associated Physician Practices is amultiple site organization consisting of ambulatory clinics and hospital sitesin [place], [place], [place] and [place]. This disclosure is being madepursuant to the Care Everywhere program and may not contain all information available regarding this patient. Last updated 18.[email or web address] Allergies No known active allergies Medications * [...] Use pads 5 times daily 8 Active lbcla-1-ibir ethyl esters (LOVAZA) 1 g capsule Take [...] FOR MUSCLE SPASM 4 Active HYDROcodone-ac etaminophen (Antrim) 5-325 MG tablet 4 Active Lokelma 10 [...] - 04/03/2025 11:59 PM CDT Hospital Encounter [facility] [address], [address] [place] [address] Matt Beyer, DO Discharge Disposition: Home or [...] and heating? Not hard at all 04/06/2023 [facility] of Occupat ional Health - Occupational Stress [...] place to sleep or slept in a group home (including now)? No 04/06/2023 Sex and [...] st Contact Info) Description 10/02/2025 1:00 PM HUMAN RESOURCES ADMINISTRATOR Appointment [facility] [address] [place] [address], [address] [place] [address] [place] [address] [place] [id number] Health Maintenance Due Date Last Done [...] this topic Medical Devices Implanted Type Area Health Education Specialist Device Identifier Shelf Expiration Date Model / Serial / Lot Mynxgrip Vascular Closure Device Implanted:Qty: 1 on 04/11/2023 by Matt Beyer DO at [facility] Right: Groin 01/19/2025 [id number] / [id number] / [id number] 5tch Cv 6x1cm Photofix Decellularized Implanted:Qty: 1 on 04/20/2023 by Matt Beyer DO at [facility] N/A: Other (See Descriptio n) [employer] 01/28/2024 [id number] / / [id number] Description:LEFT FEMORAL ART BARI Procedures Procedure Name [...] AM CDT 04/07/2023 8:31 AM CDT Narrative [facility] - 04/07/2023 9:28 AM CDT Non Reactive - Antibodies to Hepatitis C virus (HCV) were not detected, result does not exclude early acute HCV infection. Marito Rios MD LAB - CHEMISTRY ORDERABLES Jeaneth mari Result Performing Organization Address City/State/[facility] Co de Phone Number [facility] [address] [place] [address] from Last 3 Months or Most Recently Relevant to Health Maintenance Insurance MEDICARE SELF PAY NO INSURANCE Member Subscriber Plan / Payer (Ef fective for All Dates) Name:Brandie Li Jr Member ID:Not on file Relation to Subscriber:Not on file Name:BRANDIE LI JR Subscriber ID:Not on file (Home) Address: [address] [place] [address] Payer ID:Not on file Group ID:Not on file Type:Self Pay Address: [place], [place] MEDICARE Advance Directives Documents on File Type Date Recorded Patient Drop Worker Expl anation Adv Directive/Living Will/POA 05/02/2023 3:49 PM * Full Code (Latest Code Status on File) Date Activated Date Inactivated Comments 04/06/2023 9:49 AM 05/01/2023 4:44 PM Care Teams Machine Striper Relationship Specialty Start Date End Date Mariza Carrion MD [address] [place] [address] PCP - General Family Medicine 08/26/18
[2025-04-23 04:29] LABS: Alanine Aminotransferase 349 U/L (6-50); Albumin Level 3.6 g/dL (3.5-5.1); Alkaline Phosphatase 61 U/L (38-126); Anion Gap 9 mmol/L (4-12); Aspartate Amino Transferase 501 U/L (17-59); Bilirubin,Total 0.4 mg/dL (0.2-1.3); Blood Urea Nitrogen 37 mg/dL (9-20); Calcium 8.2 mg/dL (8.4-10.2); Carbon Dioxide 34 mmol/L (22-30); Chloride 90 mmol/L (98-107); Creatine Kinase 23 U/L (55-170); Estimated CRCL calculation 11 ml/min; Estimated Glomerular Filt Rate 10; Glucose 112 mg/dL (65-110); Lipase 27 U/L (23-300); Magnesium 2.2 mg/dL (1.6-2.3); Potassium 5.1 mmol/L (3.4-5.0); Sodium 133 mmol/L (137-145); Total Protein 6.3 g/dL (6.3-8.2)
[2025-04-23 04:34] LABS: Anisocytosis 1+; Hypochromasia 1+
[2025-04-23 04:35] LABS: Schistocytes Rare
[2025-04-23 04:44] LABS: Troponin I 0.468 ng/mL (0.000-0.034)
[2025-04-23 05:01] LABS: Thyroid Stimulating Hormone 0.819 uIU/mL (0.465-4.680)
[2025-04-23 05:08] LABS: Influenza A QL RT-PCR Negative (Negative); Influenza B QL RT-PCR Negative (Negative); RSV RNA, RT-PCR Negative (Negative); SARS-CoV-2 RNA PCR Negative (Negative)
[2025-04-23] MEDS: ASPIRIN 81 MG CHEWABLE TABLET 324 MG PO (06:31)
[2025-04-23 06:35] LABS: Acetaminophen < 10 ug/mL (10-30)
[2025-04-23] MEDS: MORPHINE SULFATE (*CRX) 2 MG/ML INJ IV PUSH (06:36)
[2025-04-23 06:40] LABS: INR 1.4; Prothrombin Time 17.5 Seconds (11.1-14.7)
[2025-04-23 06:41] LABS: Partial Thromboplastin Time 41.5 Seconds (22.3-36.8)
--- NOTE | 2025-04-23 07:10 | ECG_ITS ---
Test Date: 2025-04-23 07:22:24 Measurements Intervals [place] Rate: 78 P: 0 UT: 0 QRS: 181 QRSD: 152 T: -20 QT: 452 QTc: 516 Interpretive Statements ATRIAL FIBRILLATION INDETERMINATE AXIS RIGHT BUNDLE BRANCH BLOCK [120+ ms QRS DURATION, UPRIGHT V1, 40+ ms S IN I/aVL/V4/V5/V6] PROBABLE SEPTAL MYOCARDIAL INFARCTION , OF INDETERMINATE AGE [35 ms Q WAVE IN V1/V2] Compared to ECG 04/23/2025 04:03:06 Indeterminate axis now present Right-axis deviation no longer present Myocardial infarct finding still present Electronically Signed On 04-23-2025 16:47:15 CDT by Mj Campos
--- NOTE | 2025-04-23 07:20 | PC.NURSE ---
Assumed care of Pt. Pt coming back from [place]
--- NOTE | 2025-04-23 07:21 | PC.NURSE ---
Night RN states that pt on BPAP at home. States he put pt on nonrebreather when pt is sleeping because pt is a mouth breather. Pt's brother states pt receives dialysis and is due for it today. Pt on nonrebreather when he came back from [place]
[2025-04-23 07:46] LABS: Troponin I 0.476 ng/mL (0.000-0.034)
--- NOTE | 2025-04-23 08:28 | PC.NURSE ---
When pt is awake, he wears 3L NC. When pt sleeps, his pulse ox drops to 82%. Placed on nonrebreather while sleeping at 10L with pulse ox at 100%
--- NOTE | 2025-04-23 10:43 | WNDPHOTO ---
right heel PHOTO ONLY - See Nursing Notes and/ or assessments for documentation.
--- NOTE | 2025-04-23 10:53 | PM.IMHP ---
H&P: HPI History of Present Illness Date/Time: 04/23/25 10:53 Chief Complaint: Weakness Narrative: Patient with history of COPD, dm 2,essential hypertension, paroxysmal atrial fibrillation on chronic anticoagulation with Eliquis, peripheral artery disease, obstructive sleep apnea, ESRD on dialysis Sunday lives [facility]. He was brought to the hospital because of weakness and pain all over. Per ER note patient has been complaining of abdominal pain because of eating too much. Per EMS 108/60, 76 afib, saturating 88% on 2L NC (baseline) improved on 4L. In the ER for signs of blood pressure 120/60, heart rate 72, respiratory rate 16. Lab tests showed elevated AST and ALT previous CT chest abdomen pelvis reviewed showed moderate bilateral pleural effusion and pulmonary edema. Mild gallbladder wall thickening is nonspecific, probably most likely related to the presence of ascites. If there is concern for acute cholecystitis, consider HIDA scan. Marked prostatomegaly. patient had elevated troponin. Cardiology was consulted. Nephrology was consulted for further management and possible dialysis today. Patient has morphine for pain management and was admitted for further management. At time of my exam patient is lethargic but is easily wake up and answer questions. Oriented x3. He does not know why he is in the hospital. Denies any pain. Denies any chest pain, shortness of breath, nausea vomiting. Reviewed previous chart. Has been discharged on 04/11/2025 patient at that time patient GI bleeding. EGD which did not show any significant finding other than the gastritis and underwent Colonoscopy and GIB due to AVM in cecum treated with [facility] Past Medical History Medical History (Updated 04/23/25 @ 08:07 by Karli Grant MD) AVM (arteriovenous malformation) of colon, acquired with hemorrhage Chronic anticoagulation Insulin dependent type 2 diabetes mellitus (~2009) Chronic obstructive pulmonary disease Diabetic polyneuropathy Coronary artery disease Anemia Atrial fibrillation Chronic neck and back pain Insomnia History of nephrolithiasis Sinus pause (~09/2024) Obstructive sleep apnea Intolerant to CPAP Benign prostatic hyperplasia Peripheral vascular disease (~03/2023) Internal hemorrhoid, bleeding End-stage renal disease on hemodialysis DVT dialysis Sunday History of colon polyps Environmental allergies Vitamin D deficiency Dyslipidemia Essential (primary) hypertension Surgical History Surgical History History of cardiac pacemaker (~10/2024) Medtronic pacemaker placed due to symptomatic sinus pauses causing syncope performed at [facility] Status post cataract extraction of both eyes with insertion of intraocular lens History of colonoscopy with polypectomy History of hemorrhoidectomy (~01/12/24) Anorectal evaluation under anesthesia and excisional hemorrhoidectomy x3 12/14/23 SAW S/P peripheral artery angioplasty (~03/2023) status post balloon angioplasty of bilateral common and external iliac arteries status post left iliofemoral endarterectomy Arteriovenous fistula of left upper extremity (~2017) History of appendectomy (~1962) History of coronary artery bypass graft (~2013) Family History Family History Mother Diabetes mellitus Acute myocardial infarction Family history of congestive heart failure Father Hypertension Social History Social History (Updated 04/11/25 @ 02:22 by Alexandra Leo DO) Social History: The patient is . He and his brother live together prior to his hospitalization November or December 2024 and subsequent placement in to [facility]. He is retired after 26 years of serving in the [employer]. He has 4 children. He used to smoke 1.5-2 packs of cigarettes per day but quit smoking in approximately 2009. He will on a rare occasion drink an alcoholic beverage maybe 2 to 3 times a year. He denies illicit substance use. Surrogate medical decision maker: Wilian Morrissey, sibling. Code status: Full code. Caffeine- daily Smoking packs per day: 1.5 Smoking cigarettes per day: 30.0 Years smoked: 44 Smoking pack-years: 66.00 Smoking status: Former smoker Second hand tobacco smoke exposure: No Alcohol intake: unknown Alcohol use details: Maybe 2-3 per year Substance use: never Substance use type: does not use Do You Feel Safe in your Home?: No Lack of Transportation: YES Lack of Food: Never True Current Housing: I Have Housing Concerned About Future Housing: No Difficulty Paying Gas/Electric Bills: No Difficulty Paying for Meds: No Currently Unemployed: No Education: Don't Know Difficulty w/ Childcare or Family Care: No Living arrangements: with family Occupation/Education: retired Additional occupation/education comments: Retired from the [employer]. 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 Spiritual care concerns: No Agree to blood products: Yes Meds Home Medications and Allergies Home Medications ?Medication ?Instructions ?Recorded ?Confirmed ?Type aspirin 81 mg tablet,delayed 81 mg PO DAILY 10/31/21 04/10/25 History release carvedilol 25 mg tablet 25 mg PO BID 10/31/21 04/10/25 History insulin lispro 100 unit/mL 4 unit subcut .TIDAC 10/31/21 04/10/25 History subcutaneous pen loratadine 10 mg tablet (Claritin) 10 mg PO DAILY 10/31/21 04/10/25 History insulin glargine 100 unit/mL (3 6 unit subcut HS 11/07/23 04/10/25 History mL) subcutaneous pen (Lantus Solostar U-100 Insulin) cinacalcet 90 mg PO DAILY 12/12/23 04/10/25 History atorvastatin 20 mg tablet 20 mg PO HS 12/21/24 04/10/25 History finasteride 5 mg tablet (Proscar) 5 mg PO QAM #30 tabs 12/23/24 04/10/25 Rx furosemide 80 mg tablet 80 mg PO BID #60 tabs 12/23/24 04/10/25 Rx tamsulosin 0.4 mg capsule 0.4 mg PO QHS #30 caps 12/23/24 04/10/25 Rx acetaminophen 325 mg tablet 650 mg (2 x 325 mg) PO Q4H PRN 01/10/25 04/10/25 Rx Mild Pain (1-3) Or Fever #60 tabs pentoxifylline 400 mg 400 mg PO QPM 01/29/25 04/10/25 History tablet,extended release amlodipine 10 mg tablet 10 mg PO DAILY 02/16/25 04/10/25 History bisacodyl 10 mg rectal suppository 10 mg RECTAL DAILY PRN constipation 02/16/25 04/10/25 History (Laxative (bisacodyl)) gabapentin 100 mg capsule 100 mg PO TID 02/16/25 04/10/25 History liraglutide 0.6 mg/0.1 mL (18 mg/3 1.2 mg subcut HS 02/16/25 04/10/25 History mL) subcutaneous pen injector magnesium citrate (Citroma oral 296 ml PO .AM PRN constipation 02/16/25 04/10/25 History solution) magnesium hydroxide 400 mg/5 mL 30 ml PO HS PRN constipation 02/16/25 04/10/25 History oral suspension (Milk of Magnesia) sodium phosphates 19 gram-7 118 ml RECTAL DAILY PRN 02/16/25 04/10/25 History gram/118 mL enema (Fleet Enema) constipation vitamin B complex 1 cap PO DAILY 02/16/25 04/10/25 History ipratropium 20 mcg-albuterol 100 1 puff inhalation Q6H PRN 03/10/25 04/10/25 History mcg/actuation mist for inhalation shortness of breath or wheezing (Combivent Respimat) loperamide 2 mg capsule 2 mg PO Q4H PRN loose stool 03/10/25 04/10/25 History melatonin 3 mg tablet 3 mg PO HS 03/10/25 04/10/25 History tramadol 50 mg tablet 50 mg PO BID 03/10/25 04/10/25 History umeclidinium 62.5 mcg/actuation 1 inh inhalation DAILY 03/10/25 04/10/25 History blister powder for inhalation (Incruse Ellipta) levalbuterol HCl 0.63 mg/3 mL 0.63 mg (3 mL) inhalation Q6H PRN 03/19/25 04/10/25 Rx solution for nebulization shortness of breath or wheezing #90 mL levalbuterol HCl 1.25 mg/3 mL 0.63 mg (1.512 mL) inhalation 03/19/25 04/10/25 Rx solution for nebulization Q6HRT #30 vials sevelamer carbonate 0.8 gram oral 0.8 g PO TIDWM #60 grams 03/19/25 04/10/25 Rx powder packet apixaban 2.5 mg tablet (Eliquis) 2.5 mg PO Q12HR #60 tabs 03/27/25 04/10/25 Rx Allergies Allergy/AdvReac Type Severity Reaction Status Date / Time baclofen Allergy Severe encephalopa Verified 04/23/25 04:18 thy Vital Signs Vital Signs - 24 hr 04/23/25 03:56 04/23/25 04:02 04/23/25 04:31 Temperature 97.9 F Pulse Rate 82 74 77 Respiratory Rate 19 22 H 24 H Blood Pressure 112/61 112/61 99/60 L Pulse Oximetry 95 90 94 Oxygen Delivery Nasal Cannula Oxygen Flow Rate 2 04/23/25 04:43 04/23/25 05:01 04/23/25 05:31 Temperature Pulse Rate 79 80 Respiratory Rate 23 H 22 H Blood Pressure 110/61 115/65 Pulse Oximetry 96 91 Oxygen Delivery Nasal Cannula Oxygen Flow Rate 2 04/23/25 05:46 04/23/25 07:22 04/23/25 07:30 Temperature Pulse Rate Respiratory Rate Blood Pressure 120/63 Pulse Oximetry 100 100 Oxygen Delivery Non-Rebreather Mask Non-Rebreather Mask Oxygen Flow Rate 10 10 04/23/25 07:30 04/23/25 08:17 04/23/25 08:21 Temperature Pulse Rate 75 72 Respiratory Rate 17 16 Blood Pressure 113/62 120/60 Pulse Oximetry 100 100 96 Oxygen Delivery Nasal Cannula Oxygen Flow Rate 2 04/23/25 08:51 04/23/25 09:24 Temperature 97.9 F Pulse Rate 94 72 Respiratory Rate 20 18 Blood Pressure 146/89 H 119/60 Pulse Oximetry 100 100 Oxygen Delivery Oxygen Flow Rate Exam Narrative: GENERAL: Chronically ill-appearing, and in no acute distress. HEAD: Normocephalic, atraumatic. EYES: Non injected, non icteric ENT: Nares clear, no rhinorrhea or epistaxis. Gross auditory acuity intact. NECK: Supple. No meningismus. CHEST: Speaking in full sentences. No respiratory distress. HEART: Irregularly IRegular rate and rhythm. . ABDOMEN: Soft, nondistended. No rigidity or guarding. Not peritoneal EXTREMITIES: Normal range of motion. L arm fistula. SKIN: Warm, dry. Right griffin hematoma with erythema. Right griffin wound. NEURO: No focal deficits. Alert and oriented. Answering questions. Following commands. Normal speech without aphasia or dysarthria. PSYCH: Normal mood and affect. H&P: Results Labs Labs: Short CBC 04/23/25 Range/Units 04:10 WBC 8.7 (4.5-10.0) K/mm3 Hgb 8.8 L (14.0-18.0) g/dL Hct 30.5 L (42.0-52.0) % Plt Count 300 (150-375) k/mm3 [facility] 04/23/25 04:10 Sodium 133 L Potassium 5.1 H Chloride 90 L Carbon Dioxide 34 H BUN 37 H Creatinine 5.44 H Glucose 112 H Calcium 8.2 L Cardiac Enzymes 04/23/25 04/23/25 04/23/25 Range/Units 04:10 04:10 04:10 Total Creatine Kinase 23 L Cancelled (55-170) U/L Troponin I 0.468 H* Cancelled (0.000-0.034) ng/mL 04/23/25 04/23/25 Range/Units 07:17 07:17 Total Creatine Kinase (55-170) U/L Troponin I Cancelled 0.476 H* (0.000-0.034) ng/mL Liver Function 04/23/25 Range/Units 04:10 Total Bilirubin 0.4 (0.2-1.3) mg/dL AST 501 H (17-59) U/L ALT 349 H (6-50) U/L Alkaline Phosphatase 61 (38-126) U/L Albumin 3.6 (3.5-5.1) g/dL Assessment and Plan Assessment and plan (1) Enlarged prostate: Code(s): N40.0 - Benign prostatic hyperplasia without lower urinary tract symptoms Status: Acute (2) Bilateral pleural effusion: Code(s): J90 - Pleural effusion, not elsewhere classified Status: Acute (3) Non-ST elevation NC (NSTEMI): Code(s): I21.4 - Non-ST elevation (NSTEMI) myocardial infarction Status: Acute (4) Atrial fibrillation with controlled ventricular rate: Code(s): I48.91 - Unspecified atrial fibrillation Status: Acute (5) ESRD on dialysis: Code(s): N18.6 - End stage renal disease; Z99.2 - Dependence on renal dialysis Status: Acute (6) Transaminitis: Code(s): R74.01 - Elevation of levels of liver transaminase levels Status: Acute (7) Normocytic anemia: Code(s): D64.9 - Anemia, unspecified Status: Acute (8) AVM (arteriovenous malformation) of colon, acquired with hemorrhage: Code(s): K55.21 - Angiodysplasia of colon with hemorrhage Status: Acute (9) Chronic anticoagulation: Code(s): 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 Status: Acute (10) Insulin dependent type 2 diabetes mellitus: Onset Date: ~2009 Code(s): E11.9 - Type 2 diabetes mellitus without complications; Z79.4 - senior living (current) use of insulin Status: Acute (11) Chronic obstructive pulmonary disease: Code(s): J44.9 - Chronic obstructive pulmonary disease, unspecified Status: Acute (12) Frequent falls: Code(s): R29.6 - Repeated falls Status: Acute (13) Pressure ulcer of left heel, unstageable: Code(s): L89.620 - Pressure ulcer of left heel, unstageable Status: Acute (14) Seizure disorder: Code(s): G40.909 - Epilepsy, unspecified, not intractable, without status epilepticus Status: Acute Plan weakness in setting of ESRD and hyperkalemia nephrology team on board. possible plan for HD today PT/OT Continue to monitor NSTEMI deneis chest pain Monitor troponin level. can be elevated in setting of ESRD Cardiology team on board Transaminitis Denies and abd pain CT Mild gallbladder wall thickening is nonspecific, probably most likely related to the presence of ascites. will monitor for now ESRD on HD T/T/S plan for possible HD today nephrology team on board Hyperkalemia in setting of ESRD Plan as above pleural effusion' Ct showed Moderate bilateral pleural effusions with mild pulmonary edema continue with HD Chronic anemia in setting of ESRD and ? GIB Receiving Epoetin transfuse if HB<[address] Showed Marked prostatomegaly. 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
[2025-04-23 11:14] LABS: Troponin I 0.568 ng/mL (0.000-0.034)
--- NOTE | 2025-04-23 11:47 | ADMGEN ---
This patient, Sam Morrissey, was admitted to IMU Room 205-02. Patient/family oriented to hospital policies and general routines including ID bracelet, bed and alarms, visiting hours, pain management, procedures, bathroom and other care routines, personal items, smoking policy, room service/diet, and visiting hours. Information on how to activate the Rapid Response Team has been discussed. Patient/Family are encouraged to report perceived risks to care and to ask questions if they do not understand what they are told or what they should do.
[2025-04-23 13:55] LABS: MRSA (PCR) NOT DETECTED (NOT DETECTE)
--- NOTE | 2025-04-23 14:20 | PM.CNCAR ---
Assessment and Plan Assessment and plan (1) Hypertension: Code(s): I10 - Essential (primary) hypertension Status: Acute (2) Elevated troponin: Code(s): R79.89 - Other specified abnormal findings of blood chemistry Status: Acute (3) Atrial fibrillation with controlled ventricular rate: Code(s): I48.91 - Unspecified atrial fibrillation Status: Acute Plan 1. Type 2 OH 2. Atrial fibrillation 3. Anemia 4. Diabetes 5. Hypertension 6. ESRD 7. Acute on chronic diastolic HF TTE (10/22/2024) EF 60-65% -it is my clinical impression that his elevated troponin is secondary to demand ischemia not due to any ACS. However there could be an underlying obstructive disease present. Consider sepsis an outpatient -his hemoglobin has decreased as compared to his prior admission. He does have chronic anemia. I would hold his anticoagulation until evaluated by [facility] and cleared to be on anticoagulation for his AFib -continue aspirin beta-quita and statin -echo to assess LV size systolic and diastolic function - Dialysis as per nephrology for fluid removal History of Present Illness History of Present Illness Consult date/time: 04/23/25 14:20 Reason For Visit: NSTEMI/ESRD ON HD Narrative: Mr Morrissey is a 79 year old gentleman known to have a history of DM, HTN, PAF on AC, anemia, ESRD on HD, PAD was admitted with generalized weakness and pain CT chest abdomen pelvis reviewed showed moderate bilateral pleural effusion and pulmonary edema. Mild gallbladder wall thickening is nonspecific, probably most likely related to the presence of ascites. If there is concern for acute cholecystitis, consider HIDA scan. Cardiology consulted for elevated troponin The patient denies any chest pain EKG shows atrial fibrillation with controlled ventricular rate Troponin is flat He was recently discharged on 04/11/2025 patient at that time patient GI bleeding. EGD which did not show any significant finding other than the gastritis and underwent Colonoscopy and GIB due to AVM in cecum treated with APC Hemoglobin is decreased compared to his prior admission [facility] Past Medical History Medical History (Updated 04/23/25 @ 08:07 by Karli Grant MD) AVM (arteriovenous malformation) of colon, acquired with hemorrhage Chronic anticoagulation Insulin dependent type 2 diabetes mellitus (~2009) Chronic obstructive pulmonary disease Diabetic polyneuropathy Coronary artery disease Anemia Atrial fibrillation Chronic neck and back pain Insomnia History of nephrolithiasis Sinus pause (~09/2024) Obstructive sleep apnea Intolerant to CPAP Benign prostatic hyperplasia Peripheral vascular disease (~03/2023) Internal hemorrhoid, bleeding End-stage renal disease on hemodialysis DVT dialysis Sunday History of colon polyps Environmental allergies Vitamin D deficiency Dyslipidemia Essential (primary) hypertension Surgical History Surgical History History of cardiac pacemaker (~10/2024) Medtronic pacemaker placed due to symptomatic sinus pauses causing syncope performed at [facility] Status post cataract extraction of both eyes with insertion of intraocular lens History of colonoscopy with polypectomy History of hemorrhoidectomy (~01/12/24) Anorectal evaluation under anesthesia and excisional hemorrhoidectomy x3 12/14/23 [facility]W S/P peripheral artery angioplasty (~03/2023) status post balloon angioplasty of bilateral common and external iliac arteries status post left iliofemoral endarterectomy Arteriovenous fistula of left upper extremity (~2017) History of appendectomy (~1962) History of coronary artery bypass graft (~2013) Family History Family History Mother Diabetes mellitus Acute myocardial infarction Family history of congestive heart failure Father Hypertension Social History Social History (Updated 04/11/25 @ 02:22 by Alexandra Leo DO) Social History: The patient is . He and his brother live together prior to his hospitalization November or December 2024 and subsequent placement in to [facility]. He is retired after 26 years of serving in the [employer]. He has 4 children. He used to smoke 1.5-2 packs of cigarettes per day but quit smoking in approximately 2009. He will on a rare occasion drink an alcoholic beverage maybe 2 to 3 times a year. He denies illicit substance use. Surrogate medical decision maker: Wilian Morrissey, sibling. Code status: Full code. Caffeine- daily Smoking packs per day: 1.5 Smoking cigarettes per day: 30.0 Years smoked: 44 Smoking pack-years: 66.00 Smoking status: Former smoker Second hand tobacco smoke exposure: No Alcohol intake: unknown Alcohol use details: Maybe 2-3 per year Substance use: never Substance use type: does not use Do You Feel Safe in your Home?: Yes Lack of Transportation: No Lack of Food: Never True Current Housing: I Have Housing Concerned About Future Housing: No Difficulty Paying Gas/Electric Bills: No Difficulty Paying for Meds: No Currently Unemployed: No Education: Don't Know Difficulty w/ Childcare or Family Care: No Living arrangements: with family Occupation/Education: retired Additional occupation/education comments: Retired from the [employer]. 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 Spiritual care concerns: No Agree to blood products: Yes Meds Home Medications and Allergies Home Medications ?Medication ?Instructions ?Recorded ?Confirmed ?Type aspirin 81 mg tablet,delayed 81 mg PO DAILY 10/31/21 04/23/25 History release carvedilol 25 mg tablet 25 mg PO BID 10/31/21 04/23/25 History insulin lispro 100 unit/mL 4 unit subcut .TIDAC 10/31/21 04/23/25 History subcutaneous pen loratadine 10 mg tablet (Claritin) 10 mg PO DAILY 10/31/21 04/23/25 History insulin glargine 100 unit/mL (3 6 unit subcut HS 11/07/23 04/23/25 History mL) subcutaneous pen (Lantus Solostar U-100 Insulin) cinacalcet 90 mg PO DAILY 12/12/23 04/23/25 History atorvastatin 20 mg tablet 20 mg PO HS 12/21/24 04/23/25 History finasteride 5 mg tablet (Proscar) 5 mg PO QAM #30 tabs 12/23/24 04/23/25 Rx furosemide 80 mg tablet 80 mg PO BID #60 tabs 12/23/24 04/23/25 Rx tamsulosin 0.4 mg capsule 0.4 mg PO QHS #30 caps 12/23/24 04/23/25 Rx acetaminophen 325 mg tablet 650 mg (2 x 325 mg) PO Q4H PRN 01/10/25 04/23/25 Rx Mild Pain (1-3) Or Fever #60 tabs pentoxifylline 400 mg 400 mg PO QPM 01/29/25 04/23/25 History tablet,extended release amlodipine 10 mg tablet 10 mg PO DAILY 02/16/25 04/23/25 History bisacodyl 10 mg rectal suppository 10 mg RECTAL DAILY PRN constipation 02/16/25 04/23/25 History (Laxative (bisacodyl)) gabapentin 100 mg capsule 100 mg PO TID 02/16/25 04/23/25 History liraglutide 0.6 mg/0.1 mL (18 mg/3 1.2 mg subcut HS 02/16/25 04/23/25 History mL) subcutaneous pen injector magnesium citrate (Citroma oral 296 ml PO .AM PRN constipation 02/16/25 04/23/25 History solution) magnesium hydroxide 400 mg/5 mL 30 ml PO HS PRN constipation 02/16/25 04/23/25 History oral suspension (Milk of Magnesia) sodium phosphates 19 gram-7 118 ml RECTAL DAILY PRN 02/16/25 04/23/25 History gram/118 mL enema (Fleet Enema) constipation vitamin B complex 1 cap PO DAILY 02/16/25 04/23/25 History ipratropium 20 mcg-albuterol 100 1 puff inhalation Q6H PRN 03/10/25 04/23/25 History mcg/actuation mist for inhalation shortness of breath or wheezing (Combivent Respimat) loperamide 2 mg capsule 2 mg PO Q4H PRN loose stool 03/10/25 04/23/25 History melatonin 3 mg tablet 3 mg PO HS 03/10/25 04/23/25 History tramadol 50 mg tablet 50 mg PO BID 03/10/25 04/23/25 History umeclidinium 62.5 mcg/actuation 1 inh inhalation DAILY 03/10/25 04/23/25 History blister powder for inhalation (Incruse Ellipta) levalbuterol HCl 0.63 mg/3 mL 0.63 mg (3 mL) inhalation Q6H PRN 03/19/25 04/23/25 Rx solution for nebulization shortness of breath or wheezing #90 mL levalbuterol HCl 1.25 mg/3 mL 0.63 mg (1.512 mL) inhalation 03/19/25 04/23/25 Rx solution for nebulization Q6HRT #30 vials sevelamer carbonate 0.8 gram oral 0.8 g PO TIDWM #60 grams 03/19/25 04/23/25 Rx powder packet apixaban 2.5 mg tablet (Eliquis) 2.5 mg PO Q12HR #60 tabs 03/27/25 04/23/25 Rx Allergies Allergy/AdvReac Type Severity Reaction Status Date / Time baclofen Allergy Severe encephalopa Verified 04/23/25 04:18 thy Vital Signs Vital Signs - 24 hr 04/23/25 03:56 04/23/25 04:02 04/23/25 04:31 Temperature 36.6 C Pulse Rate 82 74 77 Respiratory Rate 19 22 H 24 H Blood Pressure 112/61 112/61 99/60 L Pulse Oximetry 95 90 94 Oxygen Delivery Nasal Cannula Oxygen Flow Rate 2 04/23/25 04:43 04/23/25 05:01 04/23/25 05:31 Temperature Pulse Rate 79 80 Respiratory Rate 23 H 22 H Blood Pressure 110/61 115/65 Pulse Oximetry 96 91 Oxygen Delivery Nasal Cannula Oxygen Flow Rate 2 04/23/25 05:46 04/23/25 07:22 04/23/25 07:30 Temperature Pulse Rate Respiratory Rate Blood Pressure 120/63 Pulse Oximetry 100 100 Oxygen Delivery Non-Rebreather Mask Non-Rebreather Mask Oxygen Flow Rate 10 10 04/23/25 07:30 04/23/25 08:17 04/23/25 08:21 Temperature Pulse Rate 75 72 Respiratory Rate 17 16 Blood Pressure 113/62 120/60 Pulse Oximetry 100 100 96 Oxygen Delivery Nasal Cannula Oxygen Flow Rate 2 04/23/25 08:51 04/23/25 09:24 04/23/25 09:56 Temperature 36.6 C 36.3 C L Pulse Rate 94 72 78 Respiratory Rate 20 18 16 Blood Pressure 146/89 H 119/60 115/54 L Pulse Oximetry 100 100 100 Oxygen Delivery Oxygen Flow Rate 04/23/25 11:46 04/23/25 12:00 04/23/25 12:00 Temperature 36.5 C Pulse Rate 82 Respiratory Rate 18 Blood Pressure 108/53 L Pulse Oximetry 92 91 Oxygen Delivery BiPAP Autopap Oxygen Flow Rate Exam Narrative: GENERAL: Chronically ill-appearing, and in no acute distress. HEAD: Normocephalic, atraumatic. EYES: Non injected, non icteric ENT: Nares clear, no rhinorrhea or epistaxis. Gross auditory acuity intact. NECK: Supple. No meningismus. CHEST: Speaking in full sentences. No respiratory distress. HEART: Irregularly IRegular rate and rhythm. . ABDOMEN: Soft, nondistended. No rigidity or guarding. Not peritoneal EXTREMITIES: Normal range of motion. L arm fistula. SKIN: Warm, dry. Right griffin hematoma with erythema. Right griffin wound. NEURO: No focal deficits. Alert and oriented. Answering questions. Following commands. Normal speech without aphasia or dysarthria. PSYCH: Normal mood and affect. Results Labs and Meds 04/23/25 04:10 04/23/25 04:10 Lab results: Cardiac Enzymes 04/23/25 04/23/25 04/23/25 Range/Units 04:10 04:10 07:17 AST 501 H (17-59) U/L Troponin I 0.468 H* Cancelled Cancelled (0.000-0.034) ng/mL 04/23/25 04/23/25 Range/Units 07:17 10:44 AST (17-59) U/L Troponin I 0.476 H* 0.568 H* (0.000-0.034) ng/mL Coagulation 04/23/25 Range/Units 04:10 PT 17.5 H (11.1-14.7) Seconds APTT 41.5 H (22.3-36.8) Seconds CBC 04/23/25 Range/Units 04:10 WBC 8.7 (4.5-10.0) K/mm3 RBC 3.40 L (4.6-6.20) M/mm3 Hgb 8.8 L (14.0-18.0) g/dL Hct 30.5 L (42.0-52.0) % Plt Count 300 (150-375) k/mm3 Lymph # (Auto) 0.45 L (0.9-3.2) K/mm3 [place] # (Auto) 0.8 H (0.1-0.6) K/mm3 Eos # (Auto) 0.0 (0-0.3) K/mm3 Baso # (Auto) 0.1 (0.0-0.1) K/mm3 Comprehensive Metabolic Panel 04/23/25 Range/Units 04:10 Sodium 133 L (137-145) mmol/L Potassium 5.1 H (3.4-5.0) mmol/L Chloride 90 L (98-107) mmol/L Carbon Dioxide 34 H (22-30) mmol/L BUN 37 H (9-20) mg/dL Creatinine 5.44 H (0.7-1.3) mg/dL Glucose 112 H (65-110) mg/dL Calcium 8.2 L (8.4-10.2) mg/dL AST 501 H (17-59) U/L ALT 349 H (6-50) U/L Alkaline Phosphatase 61 (38-126) U/L Total Protein 6.3 (6.3-8.2) g/dL Albumin 3.6 (3.5-5.1) g/dL Patient Weight 04/23/25 23:59 Weight 87.8 kg
--- NOTE | 2025-04-23 15:41 | P.CONNP_ITS ---
Assessment and Plan Assessment and plan (1) End stage renal disease: Code(s): N18.6 - End stage renal disease Status: Chronic Assessment and Plan: * HD today * continue T/T/S outpatient dialysis schedule while hospitalized * follow electrolytes, volume status, and clearance (2) Acute on chronic hypoxic respiratory failure: Code(s): J96.21 - Acute and chronic respiratory failure with hypoxia Status: Acute Assessment and Plan: * due to several issues: * pulmonary edema * bilateral pleural effusions * pneumonia (?) * chronic CHF * COPD * relative anemia * aggressive fluid removal/ultrafiltration with dialysis * wean off supplemental oxygen * follow respiratory status (3) Transaminitis: Code(s): R74.01 - Elevation of levels of liver transaminase levels Status: Acute Assessment and Plan: * as noted by admission testing * due to CHF/pasive congestion of liver (?) * follow trend of LFTs (4) Volume overload: Code(s): E87.70 - Fluid overload, unspecified Status: Acute Assessment and Plan: * as noted by admission imaging findings * fluid/ultrafiltration with dialysis to maintain euvolemia * in the past, has been complicated by his COPD/reactive airway disease (5) Anemia: Code(s): D64.9 - Anemia, unspecified Status: Chronic Assessment and Plan: * due to ESRD * possibly worsened by previous GI bleed issues * Epogen with HD * PRBC transfusion per protocol * anticoagulation on hold * follow trend of H/H (6) Atrial fibrillation: Code(s): I48.91 - Unspecified atrial fibrillation Status: Chronic Assessment and Plan: * rate control strategy * Cardiology recommendations noted * anticoagulation on hold (7) Essential (primary) hypertension: Code(s): I10 - Essential (primary) hypertension Status: Chronic Assessment and Plan: * reasonable control * follow trend of hemodynamics (8) IDDM (insulin dependent diabetes mellitus): Status: Chronic Assessment and Plan: * follow accu-cheks * glycemic control per hospitalist I will continue follow the patient with you while he remains hospitalized and make further recommendations as needed. Thank you for allowing me to participate in the care of this patient. L History of Present Illness Reason for Consult Consult date: 04/23/25 Reason for consult: end stage renal disease Chief Complaint Chief complaint: NSTEMI/ESRD ON HD History of Present Illness Narrative: The patient is a 79-year-old male with a past medical history as outlined below who presented to the ER from his nursing facility due to abdominal pain and generalized weakness. It is difficult to ascertain how long these symptoms were present before his nursing facility called EMS to transport him to the emergency room. I am unclear how long he was having pain and generalized weakness other than the fact that earlier this morning because of the symptoms, his nursing facility called EMS to further evaluate. From review of the records, he told EMS that he was having abdominal pain secondary to eating too much but did not elaborate much more than this. He was also noted to be hypoxic at 88% on 2 L of oxygen and they increased to 4 L with improvement in his oxygen saturations. He was subsequently brought to the emergency room for further assessment Workup and evaluation emergency room demonstrated the patient be hemodynamically stable and in no acute distress. Subsequent testing was significant for chemistry labs consistent with his known history of end-stage renal disease and his CBC was unremarkable other than his chronic anemia. It was noted that his liver function tests were quite elevated in the 300-500s range which was acute change. His chest x-ray demonstrated evidence of possible pneumonia verses pleural effusions periods given his elevated LFTs, subsequent testing by coagulation studies and a symptom minutes Serge level was done which was within normal range. lipase and lactic acid were within normal limits and his troponin was elevated but he has a chronically elevated troponin although it did seem to be a little bit higher than his baseline. Due to his ongoing complaints of pain, he received IV morphine and subsequently a CT scan of the chest/abdomen/pelvis Which was significant for moderate bilateral pleural effusions with mild pulmonary edema, small gallstone, splenomegaly, and nonspecific mild gallbladder wall thickening. Given his constellation symptoms as well as the laboratory and imaging findings, he was admitted to the hospital for further evaluation and therapy. Renal consultation was requested due to his end-stage renal disease. The patient normally dialyzes on a Sunday, , and Sunday dialysis schedule at [facility] under the care of Dr. Brett Tang. The patient is quite familiar to me as I have taking care of him on his numerous admissions here to [facility] over the last several months ranging from acute hypoxic respiratory failure, volume overload, GI bleed/ anemia, altered mental status, and generalized weakness. From a dialysis perspective, the patient usually does quite well with relative stability in his monthly labs although his fluid gains in between dialysis treatments can be an issue/quite large at times. His last dialysis treatment was on Sunday (04/21/25) and he is due for dialysis today. Currently, at the time my visit, he is in apparent distress but is not very responsive and on BiPAP therapy while receiving dialysis (seen on HD at 3:30PM). Review of Systems 2 Review of Systems: As per HPI. [facility] Past Medical History Medical History (Updated 04/26/25 @ 17:44 by Martina Booth MD) AVM (arteriovenous malformation) of colon, acquired with hemorrhage Chronic anticoagulation Diabetic polyneuropathy Insomnia History of nephrolithiasis Chronic neck and back pain Atrial fibrillation Anemia Sinus pause (~09/2024) Obstructive sleep apnea Intolerant to CPAP Insulin dependent type 2 diabetes mellitus (~2009) Chronic obstructive pulmonary disease Coronary artery disease Benign prostatic hyperplasia Peripheral vascular disease (~03/2023) Internal hemorrhoid, bleeding End-stage renal disease on hemodialysis DVT dialysis Sunday History of colon polyps Environmental allergies Vitamin D deficiency Dyslipidemia Essential (primary) hypertension Surgical History Surgical History Status post cataract extraction of both eyes with insertion of intraocular lens History of colonoscopy with polypectomy History of cardiac pacemaker (~10/2024) Medtronic pacemaker placed due to symptomatic sinus pauses causing syncope performed at [facility] History of hemorrhoidectomy (~01/12/24) Anorectal evaluation under anesthesia and excisional hemorrhoidectomy x3 12/14/23 SAW S/P peripheral artery angioplasty (~03/2023) status post balloon angioplasty of bilateral common and external iliac arteries status post left iliofemoral endarterectomy Arteriovenous fistula of left upper extremity (~2017) History of appendectomy (~1962) History of coronary artery bypass graft (~2013) Family History Family History Mother Diabetes mellitus Acute myocardial infarction Family history of congestive heart failure Father Hypertension Social History Social History (Updated 04/11/25 @ 02:22 by Alexandra Leo DO) Social History: The patient is . He and his brother live together prior to his hospitalization November or December 2024 and subsequent placement in to [facility]. He is retired after 26 years of serving in the [employer]. He has 4 children. He used to smoke 1.5-2 packs of cigarettes per day but quit smoking in approximately 2009. He will on a rare occasion drink an alcoholic beverage maybe 2 to 3 times a year. He denies illicit substance use. Surrogate medical decision maker: Wilian Morrissey, sibling. Code status: Full code. Caffeine- daily Smoking packs per day: 1.5 Smoking cigarettes per day: 30.0 Years smoked: 44 Smoking pack-years: 66.00 Smoking status: Former smoker Second hand tobacco smoke exposure: No Alcohol intake: unknown Alcohol use details: Maybe 2-3 per year Substance use: never Substance use type: does not use Do You Feel Safe in your Home?: Yes Lack of Transportation: No Lack of Food: Never True Current Housing: I Have Housing Concerned About Future Housing: No Difficulty Paying Gas/Electric Bills: No Difficulty Paying for Meds: No Currently Unemployed: No Education: Don't Know Difficulty w/ Childcare or Family Care: No Living arrangements: with family Occupation/Education: retired Additional occupation/education comments: Retired from the [employer]. 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 Spiritual care concerns: No Agree to blood products: Yes Meds Home Medications and Allergies Home Medications ?Medication ?Instructions ?Recorded ?Confirmed ?Type aspirin 81 mg tablet,delayed 81 mg PO DAILY 10/31/21 04/23/25 History release carvedilol 25 mg tablet 25 mg PO BID 10/31/21 04/23/25 History insulin lispro 100 unit/mL 4 unit subcut .TIDAC 10/31/21 04/23/25 History subcutaneous pen loratadine 10 mg tablet (Claritin) 10 mg PO DAILY 10/31/21 04/23/25 History insulin glargine 100 unit/mL (3 6 unit subcut HS 11/07/23 04/23/25 History mL) subcutaneous pen (Lantus Solostar U-100 Insulin) cinacalcet 90 mg PO DAILY 12/12/23 04/23/25 History atorvastatin 20 mg tablet 20 mg PO HS 12/21/24 04/23/25 History finasteride 5 mg tablet (Proscar) 5 mg PO QAM #30 tabs 12/23/24 04/23/25 Rx furosemide 80 mg tablet 80 mg PO BID #60 tabs 12/23/24 04/23/25 Rx tamsulosin 0.4 mg capsule 0.4 mg PO QHS #30 caps 12/23/24 04/23/25 Rx acetaminophen 325 mg tablet 650 mg (2 x 325 mg) PO Q4H PRN 01/10/25 04/23/25 Rx Mild Pain (1-3) Or Fever #60 tabs pentoxifylline 400 mg 400 mg PO QPM 01/29/25 04/23/25 History tablet,extended release amlodipine 10 mg tablet 10 mg PO DAILY 02/16/25 04/23/25 History bisacodyl 10 mg rectal suppository 10 mg RECTAL DAILY PRN constipation 02/16/25 04/23/25 History (Laxative (bisacodyl)) gabapentin 100 mg capsule 100 mg PO TID 02/16/25 04/23/25 History liraglutide 0.6 mg/0.1 mL (18 mg/3 1.2 mg subcut HS 02/16/25 04/23/25 History mL) subcutaneous pen injector magnesium citrate (Citroma oral 296 ml PO .AM PRN constipation 02/16/25 04/23/25 History solution) magnesium hydroxide 400 mg/5 mL 30 ml PO HS PRN constipation 02/16/25 04/23/25 History oral suspension (Milk of Magnesia) sodium phosphates 19 gram-7 118 ml RECTAL DAILY PRN 02/16/25 04/23/25 History gram/118 mL enema (Fleet Enema) constipation vitamin B complex 1 cap PO DAILY 02/16/25 04/23/25 History ipratropium 20 mcg-albuterol 100 1 puff inhalation Q6H PRN 03/10/25 04/23/25 History mcg/actuation mist for inhalation shortness of breath or wheezing (Combivent Respimat) loperamide 2 mg capsule 2 mg PO Q4H PRN loose stool 03/10/25 04/23/25 History melatonin 3 mg tablet 3 mg PO HS 03/10/25 04/23/25 History tramadol 50 mg tablet 50 mg PO BID 03/10/25 04/23/25 History umeclidinium 62.5 mcg/actuation 1 inh inhalation DAILY 03/10/25 04/23/25 History blister powder for inhalation (Incruse Ellipta) levalbuterol HCl 0.63 mg/3 mL 0.63 mg (3 mL) inhalation Q6H PRN 03/19/25 04/23/25 Rx solution for nebulization shortness of breath or wheezing #90 mL levalbuterol HCl 1.25 mg/3 mL 0.63 mg (1.512 mL) inhalation 03/19/25 04/23/25 Rx solution for nebulization Q6HRT #30 vials sevelamer carbonate 0.8 gram oral 0.8 g PO TIDWM #60 grams 03/19/25 04/23/25 Rx powder packet apixaban 2.5 mg tablet (Eliquis) 2.5 mg PO Q12HR #60 tabs 03/27/25 04/23/25 Rx Allergies Allergy/AdvReac Type Severity Reaction Status Date / Time baclofen Allergy Severe encephalopa Verified 04/23/25 04:18 thy Vital Signs Vital Signs Temp Pulse Resp BP Pulse Ox O2 Del Method O2 Flow Rate 04/23/25 15:30 75 119/62 04/23/25 15:15 76 114/64 04/23/25 15:00 84 133/74 04/23/25 14:45 82 139/75 04/23/25 14:42 78 121/68 04/23/25 14:32 97.7 F 75 14 127/65 100 04/23/25 14:25 20 91 BiPAP 04/23/25 14:00 73 04/23/25 12:05 68 04/23/25 12:00 91 Autopap 04/23/25 12:00 BiPAP 04/23/25 11:46 97.7 F 82 18 108/53 L 92 04/23/25 09:56 97.4 F L 78 16 115/54 L 100 04/23/25 09:24 97.9 F 72 18 119/60 100 04/23/25 08:51 94 20 146/89 H 100 04/23/25 08:21 96 Nasal Cannula 2 04/23/25 08:17 72 16 120/60 100 04/23/25 07:30 75 17 113/62 100 04/23/25 07:30 100 Non-Rebreather Mask 10 04/23/25 07:22 100 Non-Rebreather Mask 10 04/23/25 05:46 120/63 04/23/25 05:31 80 22 H 115/65 04/23/25 05:01 79 23 H 110/61 91 04/23/25 04:43 96 Nasal Cannula 2 04/23/25 04:31 77 24 H 99/60 L 94 04/23/25 04:02 74 22 H 112/61 90 04/23/25 03:56 97.9 F 82 19 112/61 95 Nasal Cannula 2 Exam 2 Narrative: GENERAL APPEARANCE: elderly but well developed well nourished male in NAD (on BiPAP) HEENT: normocephalic, atraumatic, normal conjunctiva and sclera, nares patient NECK: no lymphadenopathy, thyromegaly, or JVD MOUTH: normal lips, teeth, and gums CARDIOVASCULAR: RRR, normal S1 and S2, no rub RESPIRATORY: clear anteriorly; decreased at bases ABDOMEN: soft, nontender, nondistended, positive bowel sounds present EXTREMITIES: no evidence of cyanosis, clubbing; trace edema NEUROLOGICAL: unable to fully assess (on BiPAP and sleepy) Results Lab Results 04/26/25 04:30 04/26/25 04:30 Lab results: Most recent lab results Calcium 8.2 mg/dL (8.4-10.2) L 04/23/25 04:10 Magnesium 2.2 mg/dL (1.6-2.3) 04/23/25 04:10 Magnesium Cancelled 04/23/25 04:10
[2025-04-23] MEDS: EPOETIN ALFA-EPBX 10,000 UNITS/ML VIAL 10000 UNITS IV PUSH (16:59)
[2025-04-23] MEDS: PENTOXIFYLLINE 400 MG TABCR PO (19:30)
[2025-04-23] MEDS: traMADol HCL (*CRX) 50 MG TABLET PO (19:30)
[2025-04-23] MEDS: GABAPENTIN 100 MG CAPSULE PO (19:31)
[2025-04-23] MEDS: FUROSEMIDE 80 MG TABLET PO (19:31)
[2025-04-23] MEDS: SEVELAMER CARBONATE 800 MG TABLET PO (19:34)
[2025-04-23] MEDS: MELATONIN 3 MG TABLET PO (21:58)
[2025-04-23] MEDS: TAMSULOSIN HCL 0.4 MG CAPSULE PO (21:58)
[2025-04-23] MEDS: ATORVASTATIN 20 MG TABLET PO (21:58)
[2025-04-24] VITALS (29 sets, daily range): BP systolic 95–127; BP diastolic 45–94; PULSE 67–91; RESP 18–27; TEMP 36.8–37.3; O2SAT 95–100
[2025-04-24 04:48] LABS: Hematocrit 30.4 % (42.0-52.0); Hemoglobin 8.7 g/dL (14.0-18.0); Mean Corpuscular HGB Conc 28.6 g/dl (32-36); Mean Corpuscular Hemoglobin 25.6 pg (26-34); Mean Corpuscular Volume 89.4 fl (80-100); Platelet Count Result 272 k/mm3 (150-375); Red Blood Count 3.40 M/mm3 (4.6-6.20); White Blood Count 11.6 K/mm3 (4.5-10.0)
[2025-04-24 05:27] LABS: Alanine Aminotransferase 403 U/L (6-50); Albumin Level 3.4 g/dL (3.5-5.1); Alkaline Phosphatase 60 U/L (38-126); Anion Gap 9 mmol/L (4-12); Aspartate Amino Transferase 315 U/L (17-59); Bilirubin,Total 0.4 mg/dL (0.2-1.3); Blood Urea Nitrogen 22 mg/dL (9-20); Calcium 8.7 mg/dL (8.4-10.2); Carbon Dioxide 29 mmol/L (22-30); Chloride 97 mmol/L (98-107); Estimated CRCL calculation 13 ml/min; Estimated Glomerular Filt Rate 14; Glucose 102 mg/dL (65-110); Potassium 4.0 mmol/L (3.4-5.0); Sodium 135 mmol/L (137-145); Total Protein 5.9 g/dL (6.3-8.2)
[2025-04-24] MEDS: CINACALCET 30 MG TABLET 90 MG PO (09:13)
[2025-04-24] MEDS: ASPIRIN 81 MG ENTERIC TABLET PO (09:13)
[2025-04-24] MEDS: SEVELAMER CARBONATE 800 MG TABLET PO ×3 (09:13→17:24)
[2025-04-24] MEDS: FUROSEMIDE 80 MG TABLET PO ×2 (09:13→17:24)
[2025-04-24] MEDS: VITAMIN B COMPLEX CAPSULE 1 CAP PO (09:13)
[2025-04-24] MEDS: FINASTERIDE 5 MG TABLET PO (09:13)
[2025-04-24] MEDS: traMADol HCL (*CRX) 50 MG TABLET PO ×2 (09:13→17:24)
[2025-04-24] MEDS: GABAPENTIN 100 MG CAPSULE PO ×3 (09:13→17:24)
[2025-04-24] MEDS: LORATADINE 10 MG TABLET PO (09:13)
--- NOTE | 2025-04-24 09:50 | P.PNNP_ITS ---
Progress Note: A&P Assessment and Plan (1) End stage renal disease: Code(s): N18.6 - End stage renal disease Status: Chronic Assessment and Plan: * HD tomorrow * continue T/T/S outpatient dialysis schedule while hospitalized * follow electrolytes, volume status, and clearance (2) Acute on chronic hypoxic respiratory failure: Code(s): J96.21 - Acute and chronic respiratory failure with hypoxia Status: Acute Assessment and Plan: * due to several issues: * pulmonary edema * bilateral pleural effusions * pneumonia (?) * chronic CHF * COPD * relative anemia * aggressive fluid removal/ultrafiltration with dialysis * wean off supplemental oxygen * follow respiratory status (3) Bacteremia: Code(s): R78.81 - Bacteremia Status: Acute Assessment and Plan: * Gram positive cocci cluster (1 set out of 2) * source?? -- real versus contamination?? * on vancomycin * follow repeat cultures (4) Transaminitis: Code(s): R74.01 - Elevation of levels of liver transaminase levels Status: Acute Assessment and Plan: * as noted by admission testing * due to CHF/pasive congestion of liver (?) * follow trend of LFTs (5) Volume overload: Code(s): E87.70 - Fluid overload, unspecified Status: Acute Assessment and Plan: * as noted by admission imaging findings * fluid/ultrafiltration with dialysis to maintain euvolemia * in the past, has been complicated by his COPD/reactive airway disease + presumed CARITO (6) Anemia: Code(s): D64.9 - Anemia, unspecified Status: Chronic Assessment and Plan: * due to ESRD * possibly worsened by previous GI bleed issues * Epogen with HD * PRBC transfusion per protocol * anticoagulation on hold * follow trend of H/H (7) Atrial fibrillation: Code(s): I48.91 - Unspecified atrial fibrillation Status: Chronic Assessment and Plan: * rate control strategy * Cardiology recommendations noted * anticoagulation on hold (8) Essential (primary) hypertension: Code(s): I10 - Essential (primary) hypertension Status: Chronic Assessment and Plan: * reasonable control * follow trend of hemodynamics (9) Chronic obstructive pulmonary disease: Code(s): J44.9 - Chronic obstructive pulmonary disease, unspecified Status: Chronic Assessment and Plan: * continue home inhalers * nebulizer treatments PRN (10) IDDM (insulin dependent diabetes mellitus): Status: Chronic Assessment and Plan: * follow accu-cheks * glycemic control per hospitalist Will continue to follow. L Subjective Date/time seen: 04/24/25 09:50 Interval history: Follow-up for end stage renal disease on hemodialysis. Tolerated dialysis treatment yesterday without any issue of problems; remains on BiPAP therapy at the time of my visit; major complaint voiced is that of right leg pain; denies any worsening shortness of breath or any chest pain, or abdominal discomfort; blood culture results noted. Exam 2 Narrative: General: elderly WD/WN male in NAD (on BiPAP) Heart: IRRR, normal S1 and S2; no rub Lungs: coarse breath sounds; decreased at bases Abdomen: soft, nontender, nondistended, positive bowel sounds Extremities: no cyanosis or clubbing; trace edema Skin: warm and dry Objective Data Vital Signs Vital Signs: Vital Signs Temp Pulse Resp BP Pulse Ox O2 Del Method O2 Flow Rate 04/24/25 08:00 82 04/24/25 08:00 98 Nasal Cannula 5 04/24/25 07:37 87 20 98 BiPAP 04/24/25 07:36 87 18 04/24/25 07:31 98.5 F 86 20 113/94 H 99 04/24/25 07:16 87 100 BiPAP 04/24/25 07:13 87 26 H 04/24/25 07:13 87 26 H 100 BiPAP 04/24/25 06:00 83 04/24/25 05:17 98.3 F 84 22 H 127/48 L 95 04/24/25 04:00 83 04/24/25 02:02 85 18 04/24/25 02:00 84 04/24/25 01:54 91 19 04/24/25 01:54 91 19 99 BiPAP 04/24/25 00:00 90 04/23/25 23:51 97.6 F 91 23 H 111/62 96 04/23/25 22:00 90 04/23/25 21:59 89 04/23/25 20:34 95 20 04/23/25 20:28 87 20 04/23/25 20:28 95 Nasal Cannula 5 04/23/25 20:00 106 H 04/23/25 19:48 97.5 F L 101 H 21 H 135/74 92 04/23/25 18:20 96.6 F L 83 15 124/59 L 100 04/23/25 18:15 76 124/60 04/23/25 18:00 72 86/61 L 04/23/25 17:45 83 127/66 04/23/25 17:30 72 129/61 04/23/25 17:15 95 138/60 04/23/25 17:00 83 127/71 04/23/25 16:45 82 131/67 04/23/25 16:30 76 124/68 04/23/25 16:15 77 117/63 Intake/Output Intake/Output: Intake & Output 04/21/25 04/22/25 04/23/25 04/24/25 23:59 23:59 23:59 23:59 Intake Total 560 Output Total 3750 Balance -3750 560 Meds/Results Medications: Active Medications Generic Name Dose Route Start Last Admin Trade Name Freq PRN Reason Stop Dose Admin Acetaminophen 650 mg 04/23/25 13:39 Acetaminophen 325 Mg Tablet PO Q4H PRN Mild Pain (1-3) Or Fever Aspirin 81 mg 04/24/25 09:00 04/24/25 09:13 Aspirin 81 Mg Enteric Tablet PO 81 mg DAILY DAVID Administration Atorvastatin Calcium 20 mg 04/23/25 21:00 04/23/25 21:58 Atorvastatin 20 Mg Tablet PO 20 mg HS DAVID Administration Carvedilol 25 mg 04/23/25 21:00 04/24/25 09:13 Carvedilol 25 Mg Tablet PO 25 mg Q12HR DAVID Administration Cinacalcet 90 mg 04/24/25 09:00 04/24/25 09:13 Cinacalcet 30 Mg Tablet PO 90 mg DAILY DAVID Administration Dextrose 12.5 gm 04/23/25 13:42 Dextrose 50% 25 Gm/50 Ml Syringe IV PUSH PRN PRN Hypoglycemia Protocol Finasteride 5 mg 04/24/25 09:00 04/24/25 09:13 Finasteride 5 Mg Tablet PO 5 mg QAM DAVID Administration Furosemide 80 mg 04/23/25 17:00 04/24/25 09:13 Furosemide 80 Mg Tablet PO 80 mg BID DAVID Administration Gabapentin 100 mg 04/23/25 17:00 04/24/25 13:46 Gabapentin 100 Mg Capsule PO 100 mg TID DAVID Administration Glucagon 1 mg 04/23/25 13:42 Glucagon For Inj 1 Mg Vial IM PRN PRN Hypoglycemia Protocol Glucose 15 gm 04/23/25 13:42 Glucose Oral Gel 15 Gm Of Glucse In 37.5 Gm Tube PO PRN PRN Hypoglycemia Protocol Albumin Human 50 mls @ 999 mls/hr 04/23/25 10:08 Albutein IVPB 05/23/25 10:07 Q10M PRN HYPOTENSION Dextrose 1,000 mls @ 100 mls/hr 04/23/25 13:42 Dextrose 5% 1,000 Ml IVPB PRN PRN Hypoglycemia Protocol Insulin Aspart 3 - 6 units 04/23/25 17:00 04/24/25 11:49 Insulin Aspart (*Bkc) 100 Units/Ml SUB-Q Not Given TIDWM DAVID Protocol Insulin Aspart 1 - 3 units 04/23/25 21:00 04/23/25 20:05 Insulin Aspart (*Bkc) 100 Units/Ml SUB-Q Not Given HS DAVID Protocol Levalbuterol HCl 0.63 mg 04/23/25 14:00 04/24/25 14:26 Levalbuterol Neb 1.25 Mg/3 Ml INHALATION 0.63 mg Q6HRT DAVID Administration Loratadine 10 mg 04/24/25 09:00 04/24/25 09:13 Loratadine 10 Mg Tablet PO 10 mg DAILY DAVID Administration Magnesium Citrate 296 ml 04/23/25 13:39 Magnesium Citrate 300 Ml Btl PO QAM PRN constipation Magnesium Hydroxide 30 ml 04/23/25 13:39 Magnesium Hydroxide Susp 30 Ml Udc PO HS PRN constipation Melatonin 3 mg 04/23/25 21:00 04/23/25 21:58 Melatonin 3 Mg Tablet PO 3 mg HS DAVID Administration Ondansetron HCl 4 mg 04/23/25 08:04 Ondansetron Inj 4 Mg/2 Ml Vial IV PUSH Q4H PRN Nausea Pentoxifylline 400 mg 04/23/25 18:00 04/23/25 19:30 Pentoxifylline 400 Mg Tabcr PO 400 mg QPM DAVID Administration Sevelamer Carbonate 800 mg 04/23/25 19:20 04/24/25 13:46 Sevelamer Carbonate 800 Mg Tablet PO 800 mg TIDWM DAVID Administration Tamsulosin HCl 0.4 mg 04/23/25 21:00 04/23/25 21:58 Tamsulosin Hcl 0.4 Mg Capsule PO 0.4 mg QHS DAVID Administration Tramadol HCl 50 mg 04/23/25 17:00 04/24/25 09:13 Tramadol Hcl (*Crx) 50 Mg Tablet PO 50 mg BID DAVID Administration Umeclidinium [place] 1 puff 04/24/25 09:00 04/24/25 14:27 Umeclidinium [place] 62.5 Mcg Ellipta INHALATION 1 puff DAILY DAVID Administration Vancomycin HCl 1 each 04/24/25 11:16 Vancomycin For Hemodialysis IVPB PRN PRN Vancomycin Protocol Vitamin B Complex 1 cap 04/24/25 09:00 04/24/25 09:13 Vitamin B Complex Capsule PO 1 cap DAILY DAVID Administration Radiology Results: ITS Impressions Chest X-Ray 04/23/25 05:30 Impression: Probable mild somewhat asymmetric pulmonary edema on the left side, versus possibly pneumonia. Minimal pleural effusions. Chest/Abdomen/Pelvis CT 04/23/25 07:40 Impression: Moderate bilateral pleural effusions with mild pulmonary edema and bibasilar atelectatic change. Small gallstone. Splenomegaly, uncertain etiology. Mild gallbladder wall thickening is nonspecific, probably most likely related to the presence of ascites. If there is concern for acute cholecystitis, consider HIDA scan. Marked prostatomegaly. Labs Labs: Laboratory Tests 04/24/25 04:38 04/24/25 04:38 Calcium 8.7 Total Bilirubin 0.4 AST 315 H ALT 403 H Alkaline Phosphatase 60 Total Protein 5.9 L Albumin 3.4 L Microbiology 04/23/25 04:24 Blood Blood Culture - Preliminary Gram positive cocci cluster is 04/23/25 04:24 Blood Blood Culture - Preliminary
--- NOTE | 2025-04-24 11:57 | P.PNCA_ITS ---
Progress Note: A&P Assessment and Plan (1) Atrial fibrillation with controlled ventricular rate: Code(s): I48.91 - Unspecified atrial fibrillation Status: Acute Plan Elevated troponin likely demand ischemia Atrial fibrillation currently rate controlled Chronic hypoxemic respiratory failure Acute on chronic diastolic heart failure End-stage renal disease on hemodialysis Diabetes mellitus type 2 Further evaluation treatment of sepsis per primary team Hold anticoagulation until further evaluation for risk of bleeding Transthoracic echocardiogram Management of fluid overload and volume status per Nephrology Subjective Date/time seen: 04/24/25 11:57 Interval history: No acute events Chronic shortness of breath Telemetry atrial fibrillation heart rate in 80s with recurrent desaturation Review of Systems Review of Systems: All systems reviewed & are unremarkable except as noted in HPI and below Exam Narrative: GENERAL APPEARANCE: elderly but well developed well nourished male in NAD (on BiPAP) HEENT: normocephalic, atraumatic, normal conjunctiva and sclera, nares patient NECK: no lymphadenopathy, thyromegaly, or JVD MOUTH: normal lips, teeth, and gums CARDIOVASCULAR: Irregular irregularity, normal S1 and S2, no rub RESPIRATORY: clear anteriorly; decreased at bases ABDOMEN: soft, nontender, nondistended, positive bowel sounds present EXTREMITIES: no evidence of cyanosis, clubbing; trace edema Objective Data Vital Signs Vital Signs: Vital Signs - 24 hr 04/23/25 12:00 04/23/25 12:00 04/23/25 12:05 Temperature Pulse Rate 68 Respiratory Rate Blood Pressure Pulse Oximetry 91 Oxygen Delivery BiPAP Autopap Oxygen Flow Rate Fraction of Inspired Oxygen 04/23/25 14:00 04/23/25 14:25 04/23/25 14:32 Temperature 36.5 C Pulse Rate 73 75 Respiratory Rate 20 14 Blood Pressure 127/65 Pulse Oximetry 91 100 Oxygen Delivery BiPAP Oxygen Flow Rate Fraction of Inspired Oxygen 04/23/25 14:42 04/23/25 14:45 04/23/25 15:00 Temperature Pulse Rate 78 82 84 Respiratory Rate Blood Pressure 121/68 139/75 133/74 Pulse Oximetry Oxygen Delivery Oxygen Flow Rate Fraction of Inspired Oxygen 04/23/25 15:15 04/23/25 15:30 04/23/25 15:45 Temperature Pulse Rate 76 75 71 Respiratory Rate Blood Pressure 114/64 119/62 110/56 L Pulse Oximetry Oxygen Delivery Oxygen Flow Rate Fraction of Inspired Oxygen 04/23/25 16:00 04/23/25 16:15 04/23/25 16:30 Temperature Pulse Rate 74 77 76 Respiratory Rate Blood Pressure 110/59 L 117/63 124/68 Pulse Oximetry Oxygen Delivery Oxygen Flow Rate Fraction of Inspired Oxygen 04/23/25 16:45 04/23/25 17:00 04/23/25 17:15 Temperature Pulse Rate 82 83 95 Respiratory Rate Blood Pressure 131/67 127/71 138/60 Pulse Oximetry Oxygen Delivery Oxygen Flow Rate Fraction of Inspired Oxygen 04/23/25 17:30 04/23/25 17:45 04/23/25 18:00 Temperature Pulse Rate 72 83 72 Respiratory Rate Blood Pressure 129/61 127/66 86/61 L Pulse Oximetry Oxygen Delivery Oxygen Flow Rate Fraction of Inspired Oxygen 04/23/25 18:15 04/23/25 18:20 04/23/25 19:48 Temperature 35.9 C L 36.4 C L Pulse Rate 76 83 101 H Respiratory Rate 15 21 H Blood Pressure 124/60 124/59 L 135/74 Pulse Oximetry 100 92 Oxygen Delivery Oxygen Flow Rate Fraction of Inspired Oxygen 04/23/25 20:00 04/23/25 20:28 04/23/25 20:28 Temperature Pulse Rate 106 H 87 Respiratory Rate 20 Blood Pressure Pulse Oximetry 95 Oxygen Delivery Nasal Cannula Oxygen Flow Rate 5 Fraction of Inspired Oxygen 04/23/25 20:34 04/23/25 21:59 04/23/25 22:00 Temperature Pulse Rate 95 89 90 Respiratory Rate 20 Blood Pressure Pulse Oximetry Oxygen Delivery Oxygen Flow Rate Fraction of Inspired Oxygen 04/23/25 23:51 04/24/25 00:00 04/24/25 01:54 Temperature 36.4 C Pulse Rate 91 90 91 Respiratory Rate 23 H 19 Blood Pressure 111/62 Pulse Oximetry 96 99 Oxygen Delivery BiPAP Oxygen Flow Rate Fraction of Inspired Oxygen 04/24/25 01:54 04/24/25 02:00 04/24/25 02:02 Temperature Pulse Rate 91 84 85 Respiratory Rate 19 18 Blood Pressure Pulse Oximetry Oxygen Delivery Oxygen Flow Rate Fraction of Inspired Oxygen 04/24/25 04:00 04/24/25 05:17 04/24/25 06:00 Temperature 36.8 C Pulse Rate 83 84 83 Respiratory Rate 22 H Blood Pressure 127/48 L Pulse Oximetry 95 Oxygen Delivery Oxygen Flow Rate Fraction of Inspired Oxygen 04/24/25 07:13 04/24/25 07:13 04/24/25 07:16 Temperature Pulse Rate 87 87 87 Respiratory Rate 26 H 26 H Blood Pressure Pulse Oximetry 100 100 Oxygen Delivery BiPAP BiPAP Oxygen Flow Rate Fraction of Inspired Oxygen 55 04/24/25 07:31 04/24/25 07:36 04/24/25 07:37 Temperature 36.9 C Pulse Rate 86 87 87 Respiratory Rate 20 18 20 Blood Pressure 113/94 H Pulse Oximetry 99 98 Oxygen Delivery BiPAP Oxygen Flow Rate Fraction of Inspired Oxygen 45 04/24/25 08:00 04/24/25 08:00 04/24/25 10:00 Temperature Pulse Rate 82 70 Respiratory Rate Blood Pressure Pulse Oximetry 98 Oxygen Delivery Nasal Cannula Oxygen Flow Rate 5 Fraction of Inspired Oxygen Intake/Output Intake/Output: Intake & Output 04/21/25 04/22/25 04/23/25 04/24/25 23:59 23:59 23:59 23:59 Intake Total 440 Output Total 3750 Balance -3750 440 Meds/Results Medications: Active Medications Generic Name Dose Route Start Last Admin Trade Name Freq PRN Reason Stop Dose Admin Acetaminophen 650 mg 04/23/25 13:39 Acetaminophen 325 Mg Tablet PO Q4H PRN Mild Pain (1-3) Or Fever Aspirin 81 mg 04/24/25 09:00 04/24/25 09:13 Aspirin 81 Mg Enteric Tablet PO 81 mg DAILY DAVID Administration Atorvastatin Calcium 20 mg 04/23/25 21:00 04/23/25 21:58 Atorvastatin 20 Mg Tablet PO 20 mg HS DAVID Administration Carvedilol 25 mg 04/23/25 21:00 04/24/25 09:13 Carvedilol 25 Mg Tablet PO 25 mg Q12HR DAVID Administration Cinacalcet 90 mg 04/24/25 09:00 04/24/25 09:13 Cinacalcet 30 Mg Tablet PO 90 mg DAILY DVAID Administration Dextrose 12.5 gm 04/23/25 13:42 Dextrose 50% 25 Gm/50 Ml Syringe IV PUSH PRN PRN Hypoglycemia Protocol Finasteride 5 mg 04/24/25 09:00 04/24/25 09:13 Finasteride 5 Mg Tablet PO 5 mg QAM DAVID Administration Furosemide 80 mg 04/23/25 17:00 04/24/25 09:13 Furosemide 80 Mg Tablet PO 80 mg BID DAVID Administration Gabapentin 100 mg 04/23/25 17:00 04/24/25 09:13 Gabapentin 100 Mg Capsule PO 100 mg TID DAVID Administration Glucagon 1 mg 04/23/25 13:42 Glucagon For Inj 1 Mg Vial IM PRN PRN Hypoglycemia Protocol Glucose 15 gm 04/23/25 13:42 Glucose Oral Gel 15 Gm Of Glucse In 37.5 Gm Tube PO PRN PRN Hypoglycemia Protocol Albumin Human 50 mls @ 999 mls/hr 04/23/25 10:08 Albutein IVPB 05/23/25 10:07 Q10M PRN HYPOTENSION Dextrose 1,000 mls @ 100 mls/hr 04/23/25 13:42 Dextrose 5% 1,000 Ml IVPB PRN PRN Hypoglycemia Protocol Vancomycin HCl 1,750 mg in 500 mls @ 250 mls/hr 04/24/25 11:16 Vancomycin 1,750 Mg/Ns 500 Ml IVPB 04/24/25 13:15 ONCE ONE Insulin Aspart 3 - 6 units 04/23/25 17:00 04/24/25 11:49 Insulin Aspart (*Bkc) 100 Units/Ml SUB-Q Not Given TIDWM DAVID Protocol Insulin Aspart 1 - 3 units 04/23/25 21:00 04/23/25 20:05 Insulin Aspart (*Bkc) 100 Units/Ml SUB-Q Not Given HS DAVID Protocol Levalbuterol HCl 0.63 mg 04/23/25 14:00 04/24/25 07:13 Levalbuterol Neb 1.25 Mg/3 Ml INHALATION 0.63 mg Q6HRT DAVID Administration Loratadine 10 mg 04/24/25 09:00 04/24/25 09:13 Loratadine 10 Mg Tablet PO 10 mg DAILY DAVID Administration Magnesium Citrate 296 ml 04/23/25 13:39 Magnesium Citrate 300 Ml Btl PO QAM PRN constipation Magnesium Hydroxide 30 ml 04/23/25 13:39 Magnesium Hydroxide Susp 30 Ml Udc PO HS PRN constipation Melatonin 3 mg 04/23/25 21:00 04/23/25 21:58 Melatonin 3 Mg Tablet PO 3 mg HS DAVID Administration Miscellaneous Information 1 each 04/23/25 14:07 Central Supply Item XX 04/24/25 14:06 PRN PRN Informational Ondansetron HCl 4 mg 04/23/25 08:04 Ondansetron Inj 4 Mg/2 Ml Vial IV PUSH Q4H PRN Nausea Pentoxifylline 400 mg 04/23/25 18:00 04/23/25 19:30 Pentoxifylline 400 Mg Tabcr PO 400 mg QPM DAVID Administration Sevelamer Carbonate 800 mg 04/23/25 19:20 04/24/25 09:13 Sevelamer Carbonate 800 Mg Tablet PO 800 mg TIDWM DAVID Administration Tamsulosin HCl 0.4 mg 04/23/25 21:00 04/23/25 21:58 Tamsulosin Hcl 0.4 Mg Capsule PO 0.4 mg QHS DAVID Administration Tramadol HCl 50 mg 04/23/25 17:00 04/24/25 09:13 Tramadol Hcl (*Crx) 50 Mg Tablet PO 50 mg BID DAVID Administration Umeclidinium [place] 1 puff 04/24/25 09:00 Umeclidinium [place] 62.5 Mcg Ellipta INHALATION DAILY DAVDI Vancomycin HCl 1 each 04/24/25 11:16 Vancomycin For Hemodialysis IVPB PRN PRN Vancomycin Protocol Vitamin B Complex 1 cap 04/24/25 09:00 04/24/25 09:13 Vitamin B Complex Capsule PO 1 cap DAILY DAVID Administration Radiology Results: ITS Impressions Chest X-Ray 04/23/25 05:30 Impression: Probable mild somewhat asymmetric pulmonary edema on the left side, versus possibly pneumonia. Minimal pleural effusions. Chest/Abdomen/Pelvis CT 04/23/25 07:40 Impression: Moderate bilateral pleural effusions with mild pulmonary edema and bibasilar atelectatic change. Small gallstone. Splenomegaly, uncertain etiology. Mild gallbladder wall thickening is nonspecific, probably most likely related to the presence of ascites. If there is concern for acute cholecystitis, consider HIDA scan. Marked prostatomegaly. Labs Labs: Laboratory Results - last 24 hr 04/23/25 04/23/25 04/24/25 12:35 20:00 04:38 WBC 11.6 H RBC 3.40 L Hgb 8.7 L Hct 30.4 L MCV 89.4 MCH 25.6 L MCHC 28.6 L RDW 18.1 H Plt Count 272 MPV 9.9 Sodium 135 L Potassium 4.0 Chloride 97 L Carbon Dioxide 29 Anion Gap 9 BUN 22 H D Creatinine 4.09 H Estim Creat Clear Calc 13 Estimated GFR 14 L Glucose 102 POC Capillary Glucose 112 H Calcium 8.7 Total Bilirubin 0.4 AST 315 H ALT 403 H Alkaline Phosphatase 60 Total Protein 5.9 L Albumin 3.4 L Nasal MRSA (PCR) Not detected 04/24/25 04/24/25 07:51 11:32 WBC RBC Hgb Hct MCV MCH MCHC RDW Plt Count MPV Sodium Potassium Chloride Carbon Dioxide Anion Gap BUN Creatinine Estim Creat Clear Calc Estimated GFR Glucose POC Capillary Glucose 96 165 H Calcium Total Bilirubin AST ALT Alkaline Phosphatase Total Protein Albumin Nasal MRSA (PCR)
[2025-04-24] MEDS: VANCOMYCIN 1,750 MG/NS 500 ML 1,750 MG/500 ML BAG 250 MG IVPB (13:46)
[2025-04-24] MEDS: UMECLIDINIUM BROMIDE 62.5 MCG ELLIPTA 1 PUFF INHALATION (14:27)
--- NOTE | 2025-04-24 17:14 | PM.IMPN ---
Progress Note: A&P Assessment and Plan (1) Acute respiratory failure: Code(s): J96.00 - Acute respiratory failure, unspecified whether with hypoxia or hypercapnia Status: Acute (2) Bacteremia: Code(s): R78.81 - Bacteremia Status: Acute (3) Acute exacerbation of CHF (congestive heart failure): Qualifiers: Heart failure type: unspecified Qualified Code(s): I50.9 - Heart failure, unspecified Code(s): I50.9 - Heart failure, unspecified Status: Acute (4) Bilateral pleural effusion: Code(s): J90 - Pleural effusion, not elsewhere classified Status: Acute (5) Non-ST elevation PR (NSTEMI): Code(s): I21.4 - Non-ST elevation (NSTEMI) myocardial infarction Status: Acute (6) Atrial fibrillation with controlled ventricular rate: Code(s): I48.91 - Unspecified atrial fibrillation Status: Acute (7) ESRD on dialysis: Code(s): N18.6 - End stage renal disease; Z99.2 - Dependence on renal dialysis Status: Acute (8) Transaminitis: Code(s): R74.01 - Elevation of levels of liver transaminase levels Status: Acute (9) Normocytic anemia: Code(s): D64.9 - Anemia, unspecified Status: Acute (10) AVM (arteriovenous malformation) of colon, acquired with hemorrhage: Code(s): K55.21 - Angiodysplasia of colon with hemorrhage Status: Acute (11) Insulin dependent type 2 diabetes mellitus: Onset Date: ~2009 Code(s): E11.9 - Type 2 diabetes mellitus without complications; Z79.4 - continuous churn buttermaker (current) use of insulin Status: Acute (12) Chronic obstructive pulmonary disease: Code(s): J44.9 - Chronic obstructive pulmonary disease, unspecified Status: Acute (13) Frequent falls: Code(s): R29.6 - Repeated falls Status: Acute (14) Enlarged prostate: Code(s): N40.0 - Benign prostatic hyperplasia without lower urinary tract symptoms Status: Acute (15) Pressure ulcer of left heel, unstageable: Code(s): L89.620 - Pressure ulcer of left heel, unstageable Status: Acute (16) Seizure disorder: Code(s): G40.909 - Epilepsy, unspecified, not intractable, without status epilepticus Status: Acute Plan Weakness in setting of ESRD and hyperkalemia. BCx positive for GPC in anaerobic bottle. Related to wounds? Contaminate? CT Chest showing moderate bilateral pleural effusions and pulmonary edema. Suspect patient with fluid overload resulting in his acute hypoxic resp failure. Echo in Oct showing EF 60-65% with indeterminate diastolic function. [place] he has acute on chronic diastolic CHF. HD yesterday with 3L removed. May need more aggressive HD to control fluid status. Hx of mild CO2 retention. Check WBG in morning. COntinue BiPAP during the day as needed and continue at night. Nephrology team on board. PT/OT ordered. Add Vanco. Follow up on BCx results. Elevated Trop related to demand ischemia. He denies chest pain. Cardiology following and appreciate their input. Echo ordered. Continue ASA, lipitor and COreg. Transaminitis - etiology unclear. CT Abd showing mild GB wall thickening and small GS. Consider related to fluid overload/hepatic congestion. AST better today. Will monitor for now ESRD on HD T/T/S - HD per nephrology. Consider extra treatment to improve fluid status. Hyperkalemia - potassium was 5.1 but better after HD. Follow pleural effusions - related to fluid overload and dCHF. Dialysis to control fluid status. Chronic anemia - Hgb mostly in the 9-10 range but dropped to 7-8 range last month. Hgb on admission 8.8 and stbale. Receiving Epoetin Transfuse if HB<[address] Showed Marked prostatomegaly. Follow with PCP/Urology as outpatient PAF Eliguis on hold Rate control CARITO Continue CPAP History of GI bleeding Recent EGD and colonoscopy showed AVM. Eliquis held continue to monitor HLD - Continue statin HTN Patient's blood pressure was reviewed on 04/24 Blood pressure soft at times. Will continue to monitor. Add parameters. DM2 The patient's blood glucose was reviewed on 04/24 Glucose remains well controlled. Continue AccuCheks covering with sliding scale. Hypoglycemia protocol available as needed. Continue to monitor COPD - Continue Incruse inhaler and Xopenex. DVT Prophylaxis - SCD; Eliquis on hold per Cardiology Code status - Full Subjective Date/time seen: 04/24/25 17:14 Interval history: 79yo male with COPD, DM2,HTN, pAFib on chronic anticoagulation with Eliquis, PAD, CARITO, and ESRD on dialysis T/Th/Sat comes in from correction for weakness and pain all over. Tolerated dialysis treatment yesterday without any issue of problems; 3L removed. Complains of buttock pain. Feels SOB. Back on bipap. Exam Narrative: AF 98.4 97/45 67 19 100% bipap Gen - NARD Chest - lungs clear anteriorly. CV - irregular S1/S2. Tele showing AFib Abd - Soft, NT/ND, Positive BS Ext - No pedal edema. Thrill and bruit left upper arm. Neuro - Alert and oriented. Nonfocal exam. Psych - Nml mood and affect Skin - Warm and dry. right griffin and heel dressing clean and dry. Sacral area pink erythema and small dark eschar Objective Data Vital Signs Vital Signs: Vital Signs - 24 hr 04/23/25 17:15 04/23/25 17:30 04/23/25 17:45 Temperature Pulse Rate 95 72 83 Respiratory Rate Blood Pressure 138/60 129/61 127/66 Pulse Oximetry Oxygen Delivery Oxygen Flow Rate Fraction of Inspired Oxygen 04/23/25 18:00 04/23/25 18:15 04/23/25 18:20 Temperature 96.6 F L Pulse Rate 72 76 83 Respiratory Rate 15 Blood Pressure 86/61 L 124/60 124/59 L Pulse Oximetry 100 Oxygen Delivery Oxygen Flow Rate Fraction of Inspired Oxygen 04/23/25 19:48 04/23/25 20:00 04/23/25 20:28 Temperature 97.5 F L Pulse Rate 101 H 106 H Respiratory Rate 21 H Blood Pressure 135/74 Pulse Oximetry 92 95 Oxygen Delivery Nasal Cannula Oxygen Flow Rate 5 Fraction of Inspired Oxygen 04/23/25 20:28 04/23/25 20:34 04/23/25 21:59 Temperature Pulse Rate 87 95 89 Respiratory Rate 20 20 Blood Pressure Pulse Oximetry Oxygen Delivery Oxygen Flow Rate Fraction of Inspired Oxygen 04/23/25 22:00 04/23/25 23:51 04/24/25 00:00 Temperature 97.6 F Pulse Rate 90 91 90 Respiratory Rate 23 H Blood Pressure 111/62 Pulse Oximetry 96 Oxygen Delivery Oxygen Flow Rate Fraction of Inspired Oxygen 04/24/25 01:54 04/24/25 01:54 04/24/25 02:00 Temperature Pulse Rate 91 91 84 Respiratory Rate 19 19 Blood Pressure Pulse Oximetry 99 Oxygen Delivery BiPAP Oxygen Flow Rate Fraction of Inspired Oxygen 04/24/25 02:02 04/24/25 04:00 04/24/25 05:17 Temperature 98.3 F Pulse Rate 85 83 84 Respiratory Rate 18 22 H Blood Pressure 127/48 L Pulse Oximetry 95 Oxygen Delivery Oxygen Flow Rate Fraction of Inspired Oxygen 04/24/25 06:00 04/24/25 07:13 04/24/25 07:13 Temperature Pulse Rate 83 87 87 Respiratory Rate 26 H 26 H Blood Pressure Pulse Oximetry 100 Oxygen Delivery BiPAP Oxygen Flow Rate Fraction of Inspired Oxygen 04/24/25 07:16 04/24/25 07:31 04/24/25 07:36 Temperature 98.5 F Pulse Rate 87 86 87 Respiratory Rate 20 18 Blood Pressure 113/94 H Pulse Oximetry 100 99 Oxygen Delivery BiPAP Oxygen Flow Rate Fraction of Inspired Oxygen 55 04/24/25 07:37 04/24/25 08:00 04/24/25 08:00 Temperature Pulse Rate 87 82 Respiratory Rate 20 Blood Pressure Pulse Oximetry 98 98 Oxygen Delivery BiPAP Nasal Cannula Oxygen Flow Rate 5 Fraction of Inspired Oxygen 45 04/24/25 10:00 04/24/25 12:00 04/24/25 12:00 Temperature 99.1 F Pulse Rate 70 74 71 Respiratory Rate 24 H Blood Pressure 95/46 L Pulse Oximetry 96 Oxygen Delivery Oxygen Flow Rate Fraction of Inspired Oxygen 04/24/25 12:00 04/24/25 14:00 04/24/25 14:27 Temperature Pulse Rate 68 72 Respiratory Rate 20 Blood Pressure Pulse Oximetry 97 Oxygen Delivery Nasal Cannula Oxygen Flow Rate 5 Fraction of Inspired Oxygen 04/24/25 14:36 04/24/25 14:41 04/24/25 15:48 Temperature 98.4 F Pulse Rate 76 78 67 Respiratory Rate 24 H 27 H 19 Blood Pressure 97/45 L Pulse Oximetry 99 100 Oxygen Delivery BiPAP Oxygen Flow Rate Fraction of Inspired Oxygen Intake/Output Intake/Output: Intake & Output 04/21/25 04/22/25 04/23/25 04/24/25 23:59 23:59 23:59 23:59 Intake Total 560 Output Total 3750 Balance -3750 560 Meds/Results Medications: Active Medications Generic Name Dose Route Start Last Admin Trade Name Freq PRN Reason Stop Dose Admin Acetaminophen 650 mg 04/23/25 13:39 Acetaminophen 325 Mg Tablet PO Q4H PRN Mild Pain (1-3) Or Fever Aspirin 81 mg 04/24/25 09:00 04/24/25 09:13 Aspirin 81 Mg Enteric Tablet PO 81 mg DAILY DAVID Administration Atorvastatin Calcium 20 mg 04/23/25 21:00 04/23/25 21:58 Atorvastatin 20 Mg Tablet PO 20 mg HS DAVID Administration Carvedilol 25 mg 04/23/25 21:00 04/24/25 09:13 Carvedilol 25 Mg Tablet PO 25 mg Q12HR DAVID Administration Cinacalcet 90 mg 04/24/25 09:00 04/24/25 09:13 Cinacalcet 30 Mg Tablet PO 90 mg DAILY DAVID Administration Dextrose 12.5 gm 04/23/25 13:42 Dextrose 50% 25 Gm/50 Ml Syringe IV PUSH PRN PRN Hypoglycemia Protocol Finasteride 5 mg 04/24/25 09:00 04/24/25 09:13 Finasteride 5 Mg Tablet PO 5 mg QAM DAVID Administration Furosemide 80 mg 04/23/25 17:00 04/24/25 09:13 Furosemide 80 Mg Tablet PO 80 mg BID DAVID Administration Gabapentin 100 mg 04/23/25 17:00 04/24/25 13:46 Gabapentin 100 Mg Capsule PO 100 mg TID DAVID Administration Glucagon 1 mg 04/23/25 13:42 Glucagon For Inj 1 Mg Vial IM PRN PRN Hypoglycemia Protocol Glucose 15 gm 04/23/25 13:42 Glucose Oral Gel 15 Gm Of Glucse In 37.5 Gm Tube PO PRN PRN Hypoglycemia Protocol Albumin Human 50 mls @ 999 mls/hr 04/23/25 10:08 Albutein IVPB 05/23/25 10:07 Q10M PRN HYPOTENSION Dextrose 1,000 mls @ 100 mls/hr 04/23/25 13:42 Dextrose 5% 1,000 Ml IVPB PRN PRN Hypoglycemia Protocol Insulin Aspart 3 - 6 units 04/23/25 17:00 04/24/25 11:49 Insulin Aspart (*Bkc) 100 Units/Ml SUB-Q Not Given TIDWM DAVID Protocol Insulin Aspart 1 - 3 units 04/23/25 21:00 04/23/25 20:05 Insulin Aspart (*Bkc) 100 Units/Ml SUB-Q Not Given HS DAVID Protocol Levalbuterol HCl 0.63 mg 04/23/25 14:00 04/24/25 14:26 Levalbuterol Neb 1.25 Mg/3 Ml INHALATION 0.63 mg Q6HRT DAVID Administration Loratadine 10 mg 04/24/25 09:00 04/24/25 09:13 Loratadine 10 Mg Tablet PO 10 mg DAILY DAVID Administration Magnesium Citrate 296 ml 04/23/25 13:39 Magnesium Citrate 300 Ml Btl PO QAM PRN constipation Magnesium Hydroxide 30 ml 04/23/25 13:39 Magnesium Hydroxide Susp 30 Ml Udc PO HS PRN constipation Melatonin 3 mg 04/23/25 21:00 04/23/25 21:58 Melatonin 3 Mg Tablet PO 3 mg HS DAVID Administration Ondansetron HCl 4 mg 04/23/25 08:04 Ondansetron Inj 4 Mg/2 Ml Vial IV PUSH Q4H PRN Nausea Pentoxifylline 400 mg 04/23/25 18:00 04/23/25 19:30 Pentoxifylline 400 Mg Tabcr PO 400 mg QPM DAVID Administration Sevelamer Carbonate 800 mg 04/23/25 19:20 04/24/25 13:46 Sevelamer Carbonate 800 Mg Tablet PO 800 mg TIDWM DAVID Administration Tamsulosin HCl 0.4 mg 04/23/25 21:00 04/23/25 21:58 Tamsulosin Hcl 0.4 Mg Capsule PO 0.4 mg QHS DAVID Administration Tramadol HCl 50 mg 04/23/25 17:00 04/24/25 09:13 Tramadol Hcl (*Crx) 50 Mg Tablet PO 50 mg BID DAVID Administration Umeclidinium [place] 1 puff 04/24/25 09:00 04/24/25 14:27 Umeclidinium [place] 62.5 Mcg Ellipta INHALATION 1 puff DAILY DAVID Administration Vancomycin HCl 1 each 04/24/25 11:16 Vancomycin For Hemodialysis IVPB PRN PRN Vancomycin Protocol Vitamin B Complex 1 cap 04/24/25 09:00 04/24/25 09:13 Vitamin B Complex Capsule PO 1 cap DAILY DAVID Administration Radiology Results: ITS Impressions Chest/Abdomen/Pelvis CT 04/23/25 07:40 Impression: Moderate bilateral pleural effusions with mild pulmonary edema and bibasilar atelectatic change. Small gallstone. Splenomegaly, uncertain etiology. Mild gallbladder wall thickening is nonspecific, probably most likely related to the presence of ascites. If there is concern for acute cholecystitis, consider HIDA scan. Marked prostatomegaly. Chest X-Ray 04/24/25 16:32 IMPRESSION: Bilateral pneumonia with possible underlying pulmonary edema. Changes are slightly increased compared to previous study. Labs Labs: Laboratory Results - last 24 hr 04/23/25 04/24/25 04/24/25 20:00 04:38 07:51 WBC 11.6 H RBC 3.40 L Hgb 8.7 L Hct 30.4 L MCV 89.4 MCH 25.6 L MCHC 28.6 L RDW 18.1 H Plt Count 272 MPV 9.9 Sodium 135 L Potassium 4.0 Chloride 97 L Carbon Dioxide 29 Anion Gap 9 BUN 22 H D Creatinine 4.09 H Estim Creat Clear Calc 13 Estimated GFR 14 L Glucose 102 POC Capillary Glucose 112 H 96 Calcium 8.7 Total Bilirubin 0.4 AST 315 H ALT 403 H Alkaline Phosphatase 60 Total Protein 5.9 L Albumin 3.4 L 04/24/25 04/24/25 11:32 16:44 WBC RBC Hgb Hct MCV MCH MCHC RDW Plt Count MPV Sodium Potassium Chloride Carbon Dioxide Anion Gap BUN Creatinine Estim Creat Clear Calc Estimated GFR Glucose POC Capillary Glucose 165 H 134 H Calcium Total Bilirubin AST ALT Alkaline Phosphatase Total Protein Albumin
[2025-04-24] MEDS: PENTOXIFYLLINE 400 MG TABCR PO (17:24)
[2025-04-24] MEDS: MELATONIN 3 MG TABLET PO (21:18)
[2025-04-24] MEDS: TAMSULOSIN HCL 0.4 MG CAPSULE PO (21:18)
[2025-04-24] MEDS: ATORVASTATIN 20 MG TABLET PO (21:19)
[2025-04-25] VITALS (42 sets, daily range): BP systolic 92–166; BP diastolic 33–76; PULSE 67–84; RESP 14–20; TEMP 36.4–37.1; O2SAT 90–100
[2025-04-25 05:32] LABS: Hematocrit 26.7 % (42.0-52.0); Hemoglobin 7.7 g/dL (14.0-18.0); Immature Granulocyte Percent A 0.7 % (0-0.5); Lymphocytes Absolute Auto 0.66 K/mm3 (0.9-3.2); Mean Corpuscular HGB Conc 28.8 g/dl (32-36); Mean Corpuscular Hemoglobin 25.8 pg (26-34); Mean Corpuscular Volume 89.3 fl (80-100); Nucleated Red Blood Cells Absolute Auto 0.020 K/mm3 (0.0-0.012); Nucleated Red Blood Cells Perc 0.2 % (0.0-0.2); Platelet Count Result 238 k/mm3 (150-375); Red Blood Count 2.99 M/mm3 (4.6-6.20); White Blood Count 8.9 K/mm3 (4.5-10.0)
[2025-04-25 05:45] LABS: Alanine Aminotransferase 351 U/L (6-50); Albumin Level 3.1 g/dL (3.5-5.1); Alkaline Phosphatase 46 U/L (38-126); Anion Gap 8 mmol/L (4-12); Aspartate Amino Transferase 170 U/L (17-59); Bilirubin,Total 0.5 mg/dL (0.2-1.3); Blood Urea Nitrogen 33 mg/dL (9-20); Calcium 8.8 mg/dL (8.4-10.2); Carbon Dioxide 27 mmol/L (22-30); Chloride 95 mmol/L (98-107); Estimated CRCL calculation 11 ml/min; Estimated Glomerular Filt Rate 11; Glucose 112 mg/dL (65-110); Magnesium 2.1 mg/dL (1.6-2.3); Potassium 4.3 mmol/L (3.4-5.0); Sodium 130 mmol/L (137-145); Total Protein 5.7 g/dL (6.3-8.2)
[2025-04-25 05:53] LABS: Hypochromasia 1+
[2025-04-25 05:54] LABS: Anisocytosis 1+
[2025-04-25 05:55] LABS: Schistocytes None Seen
--- NOTE | 2025-04-25 10:25 | P.PNNP_ITS ---
Progress Note: A&P Assessment and Plan (1) End stage renal disease: Code(s): N18.6 - End stage renal disease Status: Chronic Assessment and Plan: * HD today * continue T/T/S outpatient dialysis schedule while hospitalized * follow electrolytes, volume status, and clearance (2) Acute on chronic hypoxic respiratory failure: Code(s): J96.21 - Acute and chronic respiratory failure with hypoxia Status: Acute Assessment and Plan: * due to several issues: * pulmonary edema * bilateral pleural effusions * pneumonia (?) * chronic CHF * COPD * relative anemia * aggressive fluid removal/ultrafiltration with dialysis * wean off supplemental oxygen * follow respiratory status (3) Bacteremia: Code(s): R78.81 - Bacteremia Status: Acute Assessment and Plan: * blood culture with Staphylococcus capitis (1 set out of 2) * source?? -- real versus contamination?? * on vancomycin * follow repeat cultures (4) Transaminitis: Code(s): R74.01 - Elevation of levels of liver transaminase levels Status: Acute Assessment and Plan: * as noted by admission testing * due to CHF/pasive congestion of liver (?) * follow trend of LFTs (5) Volume overload: Code(s): E87.70 - Fluid overload, unspecified Status: Acute Assessment and Plan: * as noted by admission imaging findings * fluid/ultrafiltration with dialysis to maintain euvolemia * in the past, has been complicated by his COPD/reactive airway disease + CARITO (6) Anemia: Code(s): D64.9 - Anemia, unspecified Status: Chronic Assessment and Plan: * due to ESRD * possibly worsened by previous GI bleed issues * Epogen with HD * PRBC transfusion per protocol * anticoagulation on hold * follow trend of H/H (7) Atrial fibrillation: Code(s): I48.91 - Unspecified atrial fibrillation Status: Chronic Assessment and Plan: * rate control strategy * Cardiology recommendations noted * anticoagulation on hold (8) Essential (primary) hypertension: Code(s): I10 - Essential (primary) hypertension Status: Chronic Assessment and Plan: * reasonable control * follow trend of hemodynamics (9) Chronic obstructive pulmonary disease: Code(s): J44.9 - Chronic obstructive pulmonary disease, unspecified Status: Chronic Assessment and Plan: * continue home inhalers * nebulizer treatments PRN (10) IDDM (insulin dependent diabetes mellitus): Status: Chronic Assessment and Plan: * follow accu-cheks * glycemic control per hospitalist Will continue to follow. L Subjective Date/time seen: 04/25/25 10:25 Interval history: Follow-up for end stage renal disease on hemodialysis. Tolerating dialysis treatment at the time of my visit (seen on HD at 10:15am); reports improvement in his breathing/respiratory status but still on supplemental oxygen when seen; only major complaint is that of on/off pain in his right leg (appears associated with noted calf/heel wounds); no other events overnight or earlier this morning. Exam 2 Narrative: General: elderly WD/WN male in NAD (on BiPAP) Heart: IRRR, normal S1 and S2; no rub Lungs: coarse breath sounds; decreased at bases Abdomen: soft, nontender, nondistended, positive bowel sounds Extremities: no cyanosis or clubbing; trace edema Skin: warm and intact Objective Data Vital Signs Vital Signs: Vital Signs Temp Pulse Resp BP Pulse Ox O2 Del Method O2 Flow Rate 04/25/25 10:15 73 116/53 L 04/25/25 10:00 77 120/58 L 04/25/25 09:45 79 119/49 L 04/25/25 09:30 75 127/56 L 04/25/25 09:15 78 107/52 L 04/25/25 09:00 75 120/57 L 04/25/25 08:57 72 125/59 L 04/25/25 08:57 4 04/25/25 08:42 98.4 F 79 20 113/54 L 98 04/25/25 08:04 69 16 BiPAP 04/25/25 08:02 77 16 04/25/25 08:00 100 Nasal Cannula 4 04/25/25 08:00 97.6 F 73 15 105/59 L 100 04/25/25 06:00 71 04/25/25 04:22 70 15 98 BiPAP 04/25/25 04:00 70 04/25/25 04:00 97.9 F 72 18 106/49 L 100 04/25/25 02:21 73 20 98 BiPAP 04/25/25 02:19 72 20 04/25/25 02:00 69 04/25/25 00:00 67 04/25/25 00:00 98.1 F 74 18 111/59 L 90 04/24/25 22:56 77 24 H 98 BiPAP 04/24/25 22:00 70 04/24/25 21:19 71 04/24/25 20:25 96 4 04/24/25 20:24 75 20 04/24/25 20:14 77 20 04/24/25 20:00 73 04/24/25 20:00 98.5 F 70 19 96/69 L 96 04/24/25 18:00 76 04/24/25 16:00 100 Nasal Cannula 5 04/24/25 16:00 75 04/24/25 15:48 98.4 F 67 19 97/45 L 100 04/24/25 14:41 78 27 H 99 BiPAP 04/24/25 14:36 76 24 H 04/24/25 14:27 72 20 Intake/Output Intake/Output: Intake & Output 04/22/25 04/23/25 04/24/25 04/25/25 23:59 23:59 23:59 23:59 Intake Total 960 600 Output Total 3750 5700 Balance -3750 960 -5100 Meds/Results Medications: Active Medications Generic Name Dose Route Start Last Admin Trade Name Freq PRN Reason Stop Dose Admin Acetaminophen 650 mg 04/23/25 13:39 Acetaminophen 325 Mg Tablet PO Q4H PRN Mild Pain (1-3) Or Fever Aspirin 81 mg 04/24/25 09:00 04/24/25 09:13 Aspirin 81 Mg Enteric Tablet PO 81 mg DAILY DAVID Administration Atorvastatin Calcium 20 mg 04/23/25 21:00 04/24/25 21:19 Atorvastatin 20 Mg Tablet PO 20 mg HS DAVID Administration Carvedilol 25 mg 04/23/25 21:00 04/24/25 21:19 Carvedilol 25 Mg Tablet PO 25 mg Q12HR DAVID Administration Cinacalcet 90 mg 04/24/25 09:00 04/25/25 10:31 Cinacalcet 30 Mg Tablet PO 90 mg DAILY DAVID Administration Dextrose 12.5 gm 04/23/25 13:42 Dextrose 50% 25 Gm/50 Ml Syringe IV PUSH PRN PRN Hypoglycemia Protocol Epoetin David-epbx 20,000 units 04/25/25 15:00 04/25/25 11:59 Epoetin David-Epbx 20,000 Units/Ml Vial IV PUSH 04/25/25 15:01 20,000 units ONCE ONE Administration Finasteride 5 mg 04/24/25 09:00 04/25/25 10:31 Finasteride 5 Mg Tablet PO 5 mg QAM DAVID Administration Furosemide 80 mg 04/23/25 17:00 04/24/25 17:24 Furosemide 80 Mg Tablet PO 80 mg BID DAVID Administration Gabapentin 100 mg 04/23/25 17:00 04/25/25 10:32 Gabapentin 100 Mg Capsule PO Not Given TID DAVID Glucagon 1 mg 04/23/25 13:42 Glucagon For Inj 1 Mg Vial IM PRN PRN Hypoglycemia Protocol Glucose 15 gm 04/23/25 13:42 Glucose Oral Gel 15 Gm Of Glucse In 37.5 Gm Tube PO PRN PRN Hypoglycemia Protocol Albumin Human 50 mls @ 999 mls/hr 04/23/25 10:08 Albutein IVPB 05/23/25 10:07 Q10M PRN HYPOTENSION Dextrose 1,000 mls @ 100 mls/hr 04/23/25 13:42 Dextrose 5% 1,000 Ml IVPB PRN PRN Hypoglycemia Protocol Vancomycin HCl 1,000 mg in 250 mls @ 250 mls/hr 04/25/25 18:00 Vancomycin 1,000 Mg/Ns 250 Ml IVPB 04/25/25 18:59 ONCE ONE Insulin Aspart 3 - 6 units 04/23/25 17:00 04/25/25 10:30 Insulin Aspart (*Bkc) 100 Units/Ml SUB-Q Not Given TIDWM DAVID Protocol Insulin Aspart 1 - 3 units 04/23/25 21:00 04/24/25 21:23 Insulin Aspart (*Bkc) 100 Units/Ml SUB-Q Not Given HS DAVDI Protocol Levalbuterol HCl 0.63 mg 04/23/25 14:00 04/25/25 13:46 Levalbuterol Neb 1.25 Mg/3 Ml INHALATION 0.63 mg Q6HRT DAVID Administration Loratadine 10 mg 04/24/25 09:00 04/25/25 10:32 Loratadine 10 Mg Tablet PO 10 mg DAILY DAVID Administration Magnesium Citrate 296 ml 04/23/25 13:39 Magnesium Citrate 300 Ml Btl PO QAM PRN constipation Magnesium Hydroxide 30 ml 04/23/25 13:39 Magnesium Hydroxide Susp 30 Ml Udc PO HS PRN constipation Melatonin 3 mg 04/23/25 21:00 04/24/25 21:18 Melatonin 3 Mg Tablet PO 3 mg HS DAVID Administration Ondansetron HCl 4 mg 04/23/25 08:04 Ondansetron Inj 4 Mg/2 Ml Vial IV PUSH Q4H PRN Nausea Pentoxifylline 400 mg 04/23/25 18:00 04/24/25 17:24 Pentoxifylline 400 Mg Tabcr PO 400 mg QPM DAVID Administration Sevelamer Carbonate 800 mg 04/23/25 19:20 04/25/25 10:30 Sevelamer Carbonate 800 Mg Tablet PO Not Given TIDWM DAVID Tamsulosin HCl 0.4 mg 04/23/25 21:00 04/24/25 21:18 Tamsulosin Hcl 0.4 Mg Capsule PO 0.4 mg QHS DAVID Administration Tramadol HCl 50 mg 04/23/25 17:00 04/25/25 10:34 Tramadol Hcl (*Crx) 50 Mg Tablet PO 50 mg BID DAVID Administration Umeclidinium [place] 1 puff 04/24/25 09:00 04/25/25 07:30 Umeclidinium [place] 62.5 Mcg Ellipta INHALATION Not Given DAILY DAVID Vancomycin HCl 1 each 04/24/25 11:16 Vancomycin For Hemodialysis IVPB PRN PRN Vancomycin Protocol Vitamin B Complex 1 cap 04/24/25 09:00 04/24/25 09:13 Vitamin B Complex Capsule PO 1 cap DAILY DAVID Administration Radiology Results: ITS Impressions Chest/Abdomen/Pelvis CT 04/23/25 07:40 Impression: Moderate bilateral pleural effusions with mild pulmonary edema and bibasilar atelectatic change. Small gallstone. Splenomegaly, uncertain etiology. Mild gallbladder wall thickening is nonspecific, probably most likely related to the presence of ascites. If there is concern for acute cholecystitis, consider HIDA scan. Marked prostatomegaly. Chest X-Ray 04/24/25 16:32 IMPRESSION: Bilateral pneumonia with possible underlying pulmonary edema. Changes are slightly increased compared to previous study. Labs Labs: Laboratory Tests 04/25/25 05:21 04/25/25 05:20 Calcium 8.8 Phosphorus 3.7 Magnesium 2.1 Total Bilirubin 0.5 AST 170 H ALT 351 H Alkaline Phosphatase 46 Total Protein 5.7 L Albumin 3.1 L Microbiology 04/23/25 04:24 Blood Blood Culture - Preliminary Staphylococcus capitis
[2025-04-25] MEDS: FINASTERIDE 5 MG TABLET PO (10:31)
[2025-04-25] MEDS: CINACALCET 30 MG TABLET 90 MG PO (10:31)
[2025-04-25] MEDS: LORATADINE 10 MG TABLET PO (10:32)
[2025-04-25] MEDS: traMADol HCL (*CRX) 50 MG TABLET PO ×2 (10:34→17:06)
[2025-04-25] MEDS: EPOETIN ALFA-EPBX 20,000 UNITS/ML VIAL 20000 UNITS IV PUSH (11:59)
--- NOTE | 2025-04-25 13:13 | P.PNCA_ITS ---
Progress Note: A&P Assessment and Plan (1) Atrial fibrillation with controlled ventricular rate: Code(s): I48.91 - Unspecified atrial fibrillation Status: Acute Plan Elevated troponin likely demand ischemia Atrial fibrillation currently rate controlled Chronic hypoxemic respiratory failure Acute on chronic diastolic heart failure End-stage renal disease on hemodialysis Diabetes mellitus type 2 Further evaluation treatment of sepsis per primary team Hold anticoagulation until further evaluation for risk of bleeding Transthoracic echocardiogram Management of fluid overload and volume status per Nephrology Subjective Date/time seen: 04/25/25 13:13 Interval history: no acute events Telemetry atrial fibrillation Review of Systems Review of Systems: All systems reviewed & are unremarkable except as noted in HPI and below Exam Narrative: GENERAL APPEARANCE: elderly but well developed well nourished male in NAD (on BiPAP) HEENT: normocephalic, atraumatic, normal conjunctiva and sclera, nares patient NECK: no lymphadenopathy, thyromegaly, or JVD MOUTH: normal lips, teeth, and gums CARDIOVASCULAR: Irregular irregularity, normal S1 and S2, no rub RESPIRATORY: clear anteriorly; decreased at bases ABDOMEN: soft, nontender, nondistended, positive bowel sounds present EXTREMITIES: no evidence of cyanosis, clubbing; trace edema Objective Data Vital Signs Vital Signs: Vital Signs - 24 hr 04/24/25 14:00 04/24/25 14:27 04/24/25 14:36 Temperature Pulse Rate 68 72 76 Respiratory Rate 20 24 H Blood Pressure Pulse Oximetry Oxygen Delivery Oxygen Flow Rate 04/24/25 14:41 04/24/25 15:48 04/24/25 16:00 Temperature 36.9 C Pulse Rate 78 67 75 Respiratory Rate 27 H 19 Blood Pressure 97/45 L Pulse Oximetry 99 100 Oxygen Delivery BiPAP Oxygen Flow Rate 04/24/25 16:00 04/24/25 18:00 04/24/25 20:00 Temperature 36.9 C Pulse Rate 76 70 Respiratory Rate 19 Blood Pressure 96/69 L Pulse Oximetry 100 96 Oxygen Delivery Nasal Cannula Oxygen Flow Rate 5 04/24/25 20:00 04/24/25 20:14 04/24/25 20:24 Temperature Pulse Rate 73 77 75 Respiratory Rate 20 20 Blood Pressure Pulse Oximetry Oxygen Delivery Oxygen Flow Rate 04/24/25 20:25 04/24/25 21:19 04/24/25 22:00 Temperature Pulse Rate 71 70 Respiratory Rate Blood Pressure Pulse Oximetry 96 Oxygen Delivery Oxygen Flow Rate 4 04/24/25 22:56 04/25/25 00:00 04/25/25 00:00 Temperature 36.7 C Pulse Rate 77 74 67 Respiratory Rate 24 H 18 Blood Pressure 111/59 L Pulse Oximetry 98 90 Oxygen Delivery BiPAP Oxygen Flow Rate 04/25/25 02:00 04/25/25 02:19 04/25/25 02:21 Temperature Pulse Rate 69 72 73 Respiratory Rate 20 20 Blood Pressure Pulse Oximetry 98 Oxygen Delivery BiPAP Oxygen Flow Rate 04/25/25 04:00 04/25/25 04:00 04/25/25 04:22 Temperature 36.6 C Pulse Rate 72 70 70 Respiratory Rate 18 15 Blood Pressure 106/49 L Pulse Oximetry 100 98 Oxygen Delivery BiPAP Oxygen Flow Rate 04/25/25 06:00 04/25/25 08:00 04/25/25 08:00 Temperature 36.4 C Pulse Rate 71 73 Respiratory Rate 15 Blood Pressure 105/59 L Pulse Oximetry 100 100 Oxygen Delivery Nasal Cannula Oxygen Flow Rate 4 04/25/25 08:02 04/25/25 08:04 04/25/25 08:42 Temperature 36.9 C Pulse Rate 77 69 79 Respiratory Rate 16 16 20 Blood Pressure 113/54 L Pulse Oximetry 98 Oxygen Delivery BiPAP Oxygen Flow Rate 04/25/25 08:57 04/25/25 08:57 04/25/25 09:00 Temperature Pulse Rate 72 75 Respiratory Rate Blood Pressure 125/59 L 120/57 L Pulse Oximetry Oxygen Delivery Oxygen Flow Rate 4 04/25/25 09:15 04/25/25 09:30 04/25/25 09:45 Temperature Pulse Rate 78 75 79 Respiratory Rate Blood Pressure 107/52 L 127/56 L 119/49 L Pulse Oximetry Oxygen Delivery Oxygen Flow Rate 04/25/25 10:00 04/25/25 10:15 04/25/25 10:30 Temperature Pulse Rate 77 73 77 Respiratory Rate Blood Pressure 120/58 L 116/53 L 166/55 H Pulse Oximetry Oxygen Delivery Oxygen Flow Rate 04/25/25 10:45 04/25/25 11:00 04/25/25 11:15 Temperature Pulse Rate 80 67 75 Respiratory Rate Blood Pressure 117/48 L 115/61 121/52 L Pulse Oximetry Oxygen Delivery Oxygen Flow Rate 04/25/25 11:30 04/25/25 11:45 04/25/25 12:00 Temperature Pulse Rate 76 72 82 Respiratory Rate Blood Pressure 112/51 L 116/57 L 111/58 L Pulse Oximetry Oxygen Delivery Oxygen Flow Rate 04/25/25 12:15 04/25/25 12:29 04/25/25 12:35 Temperature 36.8 C Pulse Rate 82 76 77 Respiratory Rate 16 Blood Pressure 123/57 L 122/55 L 124/63 Pulse Oximetry 97 Oxygen Delivery Oxygen Flow Rate Intake/Output Intake/Output: Intake & Output 04/22/25 04/23/25 04/24/25 04/25/25 23:59 23:59 23:59 23:59 Intake Total 960 600 Output Total 3750 1700 Balance -3750 960 -1100 Meds/Results Medications: Active Medications Generic Name Dose Route Start Last Admin Trade Name Freq PRN Reason Stop Dose Admin Acetaminophen 650 mg 04/23/25 13:39 Acetaminophen 325 Mg Tablet PO Q4H PRN Mild Pain (1-3) Or Fever Aspirin 81 mg 04/24/25 09:00 04/24/25 09:13 Aspirin 81 Mg Enteric Tablet PO 81 mg DAILY DAVID Administration Atorvastatin Calcium 20 mg 04/23/25 21:00 04/24/25 21:19 Atorvastatin 20 Mg Tablet PO 20 mg HS DAVID Administration Carvedilol 25 mg 04/23/25 21:00 04/24/25 21:19 Carvedilol 25 Mg Tablet PO 25 mg Q12HR DAVID Administration Cinacalcet 90 mg 04/24/25 09:00 04/25/25 10:31 Cinacalcet 30 Mg Tablet PO 90 mg DAILY DAVID Administration Dextrose 12.5 gm 04/23/25 13:42 Dextrose 50% 25 Gm/50 Ml Syringe IV PUSH PRN PRN Hypoglycemia Protocol Epoetin David-epbx 20,000 units 04/25/25 15:00 04/25/25 11:59 Epoetin David-Epbx 20,000 Units/Ml Vial IV PUSH 04/25/25 15:01 20,000 units ONCE ONE Administration Finasteride 5 mg 04/24/25 09:00 04/25/25 10:31 Finasteride 5 Mg Tablet PO 5 mg QAM DAVID Administration Furosemide 80 mg 04/23/25 17:00 04/24/25 17:24 Furosemide 80 Mg Tablet PO 80 mg BID DAVID Administration Gabapentin 100 mg 04/23/25 17:00 04/25/25 10:32 Gabapentin 100 Mg Capsule PO Not Given TID DAVID Glucagon 1 mg 04/23/25 13:42 Glucagon For Inj 1 Mg Vial IM PRN PRN Hypoglycemia Protocol Glucose 15 gm 04/23/25 13:42 Glucose Oral Gel 15 Gm Of Glucse In 37.5 Gm Tube PO PRN PRN Hypoglycemia Protocol Albumin Human 50 mls @ 999 mls/hr 04/23/25 10:08 Albutein IVPB 05/23/25 10:07 Q10M PRN HYPOTENSION Dextrose 1,000 mls @ 100 mls/hr 04/23/25 13:42 Dextrose 5% 1,000 Ml IVPB PRN PRN Hypoglycemia Protocol Vancomycin HCl 1,000 mg in 250 mls @ 250 mls/hr 04/25/25 18:00 Vancomycin 1,000 Mg/Ns 250 Ml IVPB 04/25/25 18:59 ONCE ONE Insulin Aspart 3 - 6 units 04/23/25 17:00 04/25/25 10:30 Insulin Aspart (*Bkc) 100 Units/Ml SUB-Q Not Given TIDWM [facility] Protocol Insulin Aspart 1 - 3 units 04/23/25 21:00 04/24/25 21:23 Insulin Aspart (*Bkc) 100 Units/Ml SUB-Q Not Given HS [facility] Protocol Levalbuterol HCl 0.63 mg 04/23/25 14:00 04/25/25 08:02 Levalbuterol Neb 1.25 Mg/3 Ml INHALATION 0.63 mg Q6HRT DAVID Administration Loratadine 10 mg 04/24/25 09:00 04/25/25 10:32 Loratadine 10 Mg Tablet PO 10 mg DAILY DAVID Administration Magnesium Citrate 296 ml 04/23/25 13:39 Magnesium Citrate 300 Ml Btl PO QAM PRN constipation Magnesium Hydroxide 30 ml 04/23/25 13:39 Magnesium Hydroxide Susp 30 Ml Udc PO HS PRN constipation Melatonin 3 mg 04/23/25 21:00 04/24/25 21:18 Melatonin 3 Mg Tablet PO 3 mg HS DAVID Administration Ondansetron HCl 4 mg 04/23/25 08:04 Ondansetron Inj 4 Mg/2 Ml Vial IV PUSH Q4H PRN Nausea Pentoxifylline 400 mg 04/23/25 18:00 04/24/25 17:24 Pentoxifylline 400 Mg Tabcr PO 400 mg QPM DAVID Administration Sevelamer Carbonate 800 mg 04/23/25 19:20 04/25/25 10:30 Sevelamer Carbonate 800 Mg Tablet PO Not Given TIDWM DAVID Tamsulosin HCl 0.4 mg 04/23/25 21:00 04/24/25 21:18 Tamsulosin Hcl 0.4 Mg Capsule PO 0.4 mg QHS DAVID Administration Tramadol HCl 50 mg 04/23/25 17:00 04/25/25 10:34 Tramadol Hcl (*Crx) 50 Mg Tablet PO 50 mg BID DAVID Administration Umeclidinium [place] 1 puff 04/24/25 09:00 04/24/25 14:27 Umeclidinium [place] 62.5 Mcg Ellipta INHALATION 1 puff DAILY DAVID Administration Vancomycin HCl 1 each 04/24/25 11:16 Vancomycin For Hemodialysis IVPB PRN PRN Vancomycin Protocol Vitamin B Complex 1 cap 04/24/25 09:00 04/24/25 09:13 Vitamin B Complex Capsule PO 1 cap DAILY DAVID Administration Radiology Results: ITS Impressions Chest/Abdomen/Pelvis CT 04/23/25 07:40 Impression: Moderate bilateral pleural effusions with mild pulmonary edema and bibasilar atelectatic change. Small gallstone. Splenomegaly, uncertain etiology. Mild gallbladder wall thickening is nonspecific, probably most likely related to the presence of ascites. If there is concern for acute cholecystitis, consider HIDA scan. Marked prostatomegaly. Chest X-Ray 04/24/25 16:32 IMPRESSION: Bilateral pneumonia with possible underlying pulmonary edema. Changes are slightly increased compared to previous study. Labs Labs: Laboratory Results - last 24 hr 04/24/25 04/24/25 04/25/25 16:44 20:48 05:20 WBC RBC Hgb Hct MCV MCH MCHC RDW Plt Count MPV Immature Gran % (Auto) Neut % (Auto) Lymph % (Auto) [place] % (Auto) Eos % (Auto) Baso % (Auto) Lymph # (Auto) [place] # (Auto) Eos # (Auto) Baso # (Auto) Abs Immat Gran (auto) Absolute Neuts (auto) Absolute Nucleated RBC Band Neutrophils % Nucleated RBC % Platelet Estimate Hypochromasia Anisocytosis Schistocytes Sodium 130 L Potassium 4.3 Chloride 95 L Carbon Dioxide 27 Anion Gap 8 BUN 33 H D Creatinine 5.06 H Estim Creat Clear Calc 11 Estimated GFR 11 L Glucose 112 H POC Capillary Glucose 134 H 162 H Calcium 8.8 Phosphorus 3.7 Magnesium 2.1 Total Bilirubin 0.5 AST 170 H ALT 351 H Alkaline Phosphatase 46 Total Protein 5.7 L Albumin 3.1 L Random Vancomycin 04/25/25 04/25/25 05:21 07:51 WBC 8.9 RBC 2.99 L Hgb 7.7 L Hct 26.7 L MCV 89.3 MCH 25.8 L MCHC 28.8 L RDW 18.4 H Plt Count 238 MPV 9.6 Immature Gran % (Auto) 0.7 H Neut % (Auto) 80.1 H Lymph % (Auto) 7.4 L [place] % (Auto) 9.8 H Eos % (Auto) 1.1 Baso % (Auto) 0.9 Lymph # (Auto) 0.66 L [place] # (Auto) 0.9 H Eos # (Auto) 0.1 Baso # (Auto) 0.1 Abs Immat Gran (auto) 0.06 H Absolute Neuts (auto) 7.1 H Absolute Nucleated RBC 0.020 H Band Neutrophils % Not Reportable Nucleated RBC % 0.2 Platelet Estimate Adequate Hypochromasia 1+ Anisocytosis 1+ Schistocytes None seen Sodium Potassium Chloride Carbon Dioxide Anion Gap BUN Creatinine Estim Creat Clear Calc Estimated GFR Glucose POC Capillary Glucose 104 Calcium Phosphorus Magnesium Total Bilirubin AST ALT Alkaline Phosphatase Total Protein Albumin Random Vancomycin 14.1
[2025-04-25] MEDS: SEVELAMER CARBONATE 800 MG TABLET PO ×2 (13:41→17:05)
[2025-04-25] MEDS: GABAPENTIN 100 MG CAPSULE PO ×2 (13:41→17:05)
--- NOTE | 2025-04-25 15:58 | PM.IMPN ---
Progress Note: A&P Assessment and Plan (1) Acute respiratory failure: Code(s): J96.00 - Acute respiratory failure, unspecified whether with hypoxia or hypercapnia Status: Acute (2) Bacteremia: Code(s): R78.81 - Bacteremia Status: Acute (3) Acute exacerbation of CHF (congestive heart failure): Qualifiers: Heart failure type: unspecified Qualified Code(s): I50.9 - Heart failure, unspecified Code(s): I50.9 - Heart failure, unspecified Status: Acute (4) Bilateral pleural effusion: Code(s): J90 - Pleural effusion, not elsewhere classified Status: Acute (5) Non-ST elevation CO (NSTEMI): Code(s): I21.4 - Non-ST elevation (NSTEMI) myocardial infarction Status: Acute (6) Atrial fibrillation with controlled ventricular rate: Code(s): I48.91 - Unspecified atrial fibrillation Status: Acute (7) ESRD on dialysis: Code(s): N18.6 - End stage renal disease; Z99.2 - Dependence on renal dialysis Status: Acute (8) Transaminitis: Code(s): R74.01 - Elevation of levels of liver transaminase levels Status: Acute (9) Normocytic anemia: Code(s): D64.9 - Anemia, unspecified Status: Acute (10) AVM (arteriovenous malformation) of colon, acquired with hemorrhage: Code(s): K55.21 - Angiodysplasia of colon with hemorrhage Status: Acute (11) Insulin dependent type 2 diabetes mellitus: Onset Date: ~2009 Code(s): E11.9 - Type 2 diabetes mellitus without complications; 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 Status: Acute (12) Chronic obstructive pulmonary disease: Code(s): J44.9 - Chronic obstructive pulmonary disease, unspecified Status: Acute (13) Frequent falls: Code(s): R29.6 - Repeated falls Status: Acute (14) Enlarged prostate: Code(s): N40.0 - Benign prostatic hyperplasia without lower urinary tract symptoms Status: Acute (15) Pressure ulcer of left heel, unstageable: Code(s): L89.620 - Pressure ulcer of left heel, unstageable Status: Acute (16) Seizure disorder: Code(s): G40.909 - Epilepsy, unspecified, not intractable, without status epilepticus Status: Acute Plan Weakness in setting of ESRD and hyperkalemia. BCx positive for Staph capitis in anaerobic bottle. Probably a contaminate. CT Chest showing moderate bilateral pleural effusions and pulmonary edema. Suspect patient with fluid overload resulting in his acute hypoxic resp failure. Echo in Oct showing EF 60-65% with indeterminate diastolic function. [place] he has acute on chronic diastolic CHF. HD 04/23 with 3L removed and having HD today. May need more aggressive HD to control fluid status. Hx of mild CO2 retention. Continue BiPAP during the day as needed and continue at night. Nephrology on board. PT/OT ordered. Will stop vanco. Elevated Trop related to demand ischemia. He denies chest pain. Cardiology following and appreciate their input. Echo recommended so will order. Continue ASA, lipitor and Coreg. Transaminitis - etiology unclear. CT Abd showing mild GB wall thickening and small GS. Consider related to fluid overload/hepatic congestion. AST/ALT better today. Will monitor for now ESRD on HD T/T/S - HD per nephrology. Consider extra treatment to improve fluid status. Hyperkalemia - potassium was 5.1 but better after HD. Follow pleural effusions - related to fluid overload and dCHF. Dialysis to control fluid status. Chronic anemia - Hgb mostly in the 9-10 range but dropped to 7-8 range last month. Hgb on admission 8.8 but dropped to 7.7 today. Receiving Epoetin Transfuse if HB<[address] Showed marked prostatomegaly. Continue Flomax and Proscar Follow with PCP/Urology as outpatient PAF Eliguis on hold Rate controlled CARITO Continue CPAP History of GI bleeding Recent EGD and colonoscopy showed AVM. Eliquis held continue to monitor HLD - Continue statin. Monitor LFTs HTN Patient's blood pressure was reviewed on 04/25 Blood pressure well controlled. Will continue to monitor. DM2 The patient's blood glucose was reviewed on 04/25 Glucose remains well controlled. Continue AccuCheks covering with sliding scale. Hypoglycemia protocol available as needed. Continue to monitor COPD - Stable. No wheezing. Continue Incruse inhaler and Xopenex. DVT Prophylaxis - SCD; Eliquis on hold per Cardiology Code status - Full Subjective Date/time seen: 04/25/25 15:58 Interval history: 79yo male with COPD, DM2,HTN, pAFib on chronic anticoagulation with Eliquis, PAD, CARITO, and ESRD on dialysis T/Th/Sat comes in from intermediate for weakness and pain all over. Feeling better. No CP or SOB. Cough productive of brown sputum. He mentions he had hemoptysis about 1 week ago but no recurrence. He wears 3-4L O2 at home. Patient was seen during dialysis. Exam Narrative: AF 98.2 124/63 82 16 97% 4L Gen - NARD Chest - lungs clear anteriorly and in flanks. CV - irregular S1/S2. Tele showing AFib with occasional pause Abd - Soft, NT/ND, Positive BS Ext - No pedal edema. Left upper arm fistual accessed. Neuro - Alert and oriented. Nonfocal exam. Psych - Nml mood and affect Skin - Warm and dry. right griffin with blackish escar and apparant skin teat/abrasion. right heel with dark black eschar. Objective Data Vital Signs Vital Signs: Vital Signs - 24 hr 04/24/25 16:00 04/24/25 16:00 04/24/25 18:00 Temperature Pulse Rate 75 76 Respiratory Rate Blood Pressure Pulse Oximetry 100 Oxygen Delivery Nasal Cannula Oxygen Flow Rate 5 04/24/25 20:00 04/24/25 20:00 04/24/25 20:14 Temperature 98.5 F Pulse Rate 70 73 77 Respiratory Rate 19 20 Blood Pressure 96/69 L Pulse Oximetry 96 Oxygen Delivery Oxygen Flow Rate 04/24/25 20:24 04/24/25 20:25 04/24/25 21:19 Temperature Pulse Rate 75 71 Respiratory Rate 20 Blood Pressure Pulse Oximetry 96 Oxygen Delivery Oxygen Flow Rate 4 04/24/25 22:00 04/24/25 22:56 04/25/25 00:00 Temperature 98.1 F Pulse Rate 70 77 74 Respiratory Rate 24 H 18 Blood Pressure 111/59 L Pulse Oximetry 98 90 Oxygen Delivery BiPAP Oxygen Flow Rate 04/25/25 00:00 04/25/25 02:00 04/25/25 02:19 Temperature Pulse Rate 67 69 72 Respiratory Rate 20 Blood Pressure Pulse Oximetry Oxygen Delivery Oxygen Flow Rate 04/25/25 02:21 04/25/25 04:00 04/25/25 04:00 Temperature 97.9 F Pulse Rate 73 72 70 Respiratory Rate 20 18 Blood Pressure 106/49 L Pulse Oximetry 98 100 Oxygen Delivery BiPAP Oxygen Flow Rate 04/25/25 04:22 04/25/25 06:00 04/25/25 08:00 Temperature 97.6 F Pulse Rate 70 71 73 Respiratory Rate 15 15 Blood Pressure 105/59 L Pulse Oximetry 98 100 Oxygen Delivery BiPAP Oxygen Flow Rate 04/25/25 08:00 04/25/25 08:02 04/25/25 08:04 Temperature Pulse Rate 77 69 Respiratory Rate 16 16 Blood Pressure Pulse Oximetry 100 Oxygen Delivery Nasal Cannula BiPAP Oxygen Flow Rate 4 04/25/25 08:42 04/25/25 08:57 04/25/25 08:57 Temperature 98.4 F Pulse Rate 79 72 Respiratory Rate 20 Blood Pressure 113/54 L 125/59 L Pulse Oximetry 98 Oxygen Delivery Oxygen Flow Rate 4 04/25/25 09:00 04/25/25 09:15 04/25/25 09:30 Temperature Pulse Rate 75 78 75 Respiratory Rate Blood Pressure 120/57 L 107/52 L 127/56 L Pulse Oximetry Oxygen Delivery Oxygen Flow Rate 04/25/25 09:45 04/25/25 10:00 04/25/25 10:15 Temperature Pulse Rate 79 77 73 Respiratory Rate Blood Pressure 119/49 L 120/58 L 116/53 L Pulse Oximetry Oxygen Delivery Oxygen Flow Rate 04/25/25 10:30 04/25/25 10:45 04/25/25 11:00 Temperature Pulse Rate 77 80 67 Respiratory Rate Blood Pressure 166/55 H 117/48 L 115/61 Pulse Oximetry Oxygen Delivery Oxygen Flow Rate 04/25/25 11:15 04/25/25 11:30 04/25/25 11:45 Temperature Pulse Rate 75 76 72 Respiratory Rate Blood Pressure 121/52 L 112/51 L 116/57 L Pulse Oximetry Oxygen Delivery Oxygen Flow Rate 04/25/25 12:00 04/25/25 12:00 04/25/25 12:15 Temperature Pulse Rate 82 82 Respiratory Rate Blood Pressure 111/58 L 123/57 L Pulse Oximetry 100 Oxygen Delivery Nasal Cannula Oxygen Flow Rate 4 04/25/25 12:29 04/25/25 12:35 04/25/25 13:46 Temperature 98.2 F Pulse Rate 76 77 78 Respiratory Rate 16 16 Blood Pressure 122/55 L 124/63 Pulse Oximetry 97 Oxygen Delivery Oxygen Flow Rate 04/25/25 13:56 Temperature Pulse Rate 82 Respiratory Rate 16 Blood Pressure Pulse Oximetry Oxygen Delivery Oxygen Flow Rate Intake/Output Intake/Output: Intake & Output 04/22/25 04/23/25 04/24/25 04/25/25 23:59 23:59 23:59 23:59 Intake Total 960 600 Output Total 3750 5700 Balance -3750 960 -5100 Meds/Results Medications: Active Medications Generic Name Dose Route Start Last Admin Trade Name Freq PRN Reason Stop Dose Admin Acetaminophen 650 mg 04/23/25 13:39 Acetaminophen 325 Mg Tablet PO Q4H PRN Mild Pain (1-3) Or Fever Aspirin 81 mg 04/24/25 09:00 04/24/25 09:13 Aspirin 81 Mg Enteric Tablet PO 81 mg DAILY DAVID Administration Atorvastatin Calcium 20 mg 04/23/25 21:00 04/24/25 21:19 Atorvastatin 20 Mg Tablet PO 20 mg HS DAVID Administration Carvedilol 25 mg 04/23/25 21:00 04/24/25 21:19 Carvedilol 25 Mg Tablet PO 25 mg Q12HR DAVID Administration Cinacalcet 90 mg 04/24/25 09:00 04/25/25 10:31 Cinacalcet 30 Mg Tablet PO 90 mg DAILY DAVID Administration Dextrose 12.5 gm 04/23/25 13:42 Dextrose 50% 25 Gm/50 Ml Syringe IV PUSH PRN PRN Hypoglycemia Protocol Finasteride 5 mg 04/24/25 09:00 04/25/25 10:31 Finasteride 5 Mg Tablet PO 5 mg QAM DAVID Administration Furosemide 80 mg 04/23/25 17:00 04/25/25 15:34 Furosemide 80 Mg Tablet PO Not Given BID DAVID Gabapentin 100 mg 04/23/25 17:00 04/25/25 13:41 Gabapentin 100 Mg Capsule PO 100 mg TID DAVID Administration Glucagon 1 mg 04/23/25 13:42 Glucagon For Inj 1 Mg Vial IM PRN PRN Hypoglycemia Protocol Glucose 15 gm 04/23/25 13:42 Glucose Oral Gel 15 Gm Of Glucse In 37.5 Gm Tube PO PRN PRN Hypoglycemia Protocol Albumin Human 50 mls @ 999 mls/hr 04/23/25 10:08 Albutein IVPB 05/23/25 10:07 Q10M PRN HYPOTENSION Dextrose 1,000 mls @ 100 mls/hr 04/23/25 13:42 Dextrose 5% 1,000 Ml IVPB PRN PRN Hypoglycemia Protocol Vancomycin HCl 1,000 mg in 250 mls @ 250 mls/hr 04/25/25 18:00 Vancomycin 1,000 Mg/Ns 250 Ml IVPB 04/25/25 18:59 ONCE ONE Insulin Aspart 3 - 6 units 04/23/25 17:00 04/25/25 15:34 Insulin Aspart (*Bkc) 100 Units/Ml SUB-Q Not Given TIDWM DAVID Protocol Insulin Aspart 1 - 3 units 04/23/25 21:00 04/24/25 21:23 Insulin Aspart (*Bkc) 100 Units/Ml SUB-Q Not Given HS DAVID Protocol Levalbuterol HCl 0.63 mg 04/23/25 14:00 04/25/25 13:46 Levalbuterol Neb 1.25 Mg/3 Ml INHALATION 0.63 mg Q6HRT DAVID Administration Loratadine 10 mg 04/24/25 09:00 04/25/25 10:32 Loratadine 10 Mg Tablet PO 10 mg DAILY DAVID Administration Magnesium Citrate 296 ml 04/23/25 13:39 Magnesium Citrate 300 Ml Btl PO QAM PRN constipation Magnesium Hydroxide 30 ml 04/23/25 13:39 Magnesium Hydroxide Susp 30 Ml Udc PO HS PRN constipation Melatonin 3 mg 04/23/25 21:00 04/24/25 21:18 Melatonin 3 Mg Tablet PO 3 mg HS DAVID Administration Ondansetron HCl 4 mg 04/23/25 08:04 Ondansetron Inj 4 Mg/2 Ml Vial IV PUSH Q4H PRN Nausea Pentoxifylline 400 mg 04/23/25 18:00 04/24/25 17:24 Pentoxifylline 400 Mg Tabcr PO 400 mg QPM DAVID Administration Sevelamer Carbonate 800 mg 04/23/25 19:20 04/25/25 13:41 Sevelamer Carbonate 800 Mg Tablet PO 800 mg TIDWM DAVID Administration Tamsulosin HCl 0.4 mg 04/23/25 21:00 04/24/25 21:18 Tamsulosin Hcl 0.4 Mg Capsule PO 0.4 mg QHS DAVID Administration Tramadol HCl 50 mg 04/23/25 17:00 04/25/25 10:34 Tramadol Hcl (*Crx) 50 Mg Tablet PO 50 mg BID DAVID Administration Umeclidinium [place] 1 puff 04/24/25 09:00 04/25/25 07:30 Umeclidinium [place] 62.5 Mcg Ellipta INHALATION Not Given DAILY DAVID Vancomycin HCl 1 each 04/24/25 11:16 Vancomycin For Hemodialysis IVPB PRN PRN Vancomycin Protocol Vitamin B Complex 1 cap 04/24/25 09:00 04/24/25 09:13 Vitamin B Complex Capsule PO 1 cap DAILY DAVID Administration Radiology Results: ITS Impressions Chest/Abdomen/Pelvis CT 04/23/25 07:40 Impression: Moderate bilateral pleural effusions with mild pulmonary edema and bibasilar atelectatic change. Small gallstone. Splenomegaly, uncertain etiology. Mild gallbladder wall thickening is nonspecific, probably most likely related to the presence of ascites. If there is concern for acute cholecystitis, consider HIDA scan. Marked prostatomegaly. Chest X-Ray 04/24/25 16:32 IMPRESSION: Bilateral pneumonia with possible underlying pulmonary edema. Changes are slightly increased compared to previous study. Labs Labs: Laboratory Results - last 24 hr 04/24/25 04/24/25 04/25/25 16:44 20:48 05:20 WBC RBC Hgb Hct MCV MCH MCHC RDW Plt Count MPV Immature Gran % (Auto) Neut % (Auto) Lymph % (Auto) [place] % (Auto) Eos % (Auto) Baso % (Auto) Lymph # (Auto) [place] # (Auto) Eos # (Auto) Baso # (Auto) Abs Immat Gran (auto) Absolute Neuts (auto) Absolute Nucleated RBC Band Neutrophils % Nucleated RBC % Platelet Estimate Hypochromasia Anisocytosis Schistocytes Sodium 130 L Potassium 4.3 Chloride 95 L Carbon Dioxide 27 Anion Gap 8 BUN 33 H D Creatinine 5.06 H Estim Creat Clear Calc 11 Estimated GFR 11 L Glucose 112 H POC Capillary Glucose 134 H 162 H Calcium 8.8 Phosphorus 3.7 Magnesium 2.1 Total Bilirubin 0.5 AST 170 H ALT 351 H Alkaline Phosphatase 46 Total Protein 5.7 L Albumin 3.1 L Random Vancomycin 04/25/25 04/25/25 05:21 07:51 WBC 8.9 RBC 2.99 L Hgb 7.7 L Hct 26.7 L MCV 89.3 MCH 25.8 L MCHC 28.8 L RDW 18.4 H Plt Count 238 MPV 9.6 Immature Gran % (Auto) 0.7 H Neut % (Auto) 80.1 H Lymph % (Auto) 7.4 L [place] % (Auto) 9.8 H Eos % (Auto) 1.1 Baso % (Auto) 0.9 Lymph # (Auto) 0.66 L [place] # (Auto) 0.9 H Eos # (Auto) 0.1 Baso # (Auto) 0.1 Abs Immat Gran (auto) 0.06 H Absolute Neuts (auto) 7.1 H Absolute Nucleated RBC 0.020 H Band Neutrophils % Not Reportable Nucleated RBC % 0.2 Platelet Estimate Adequate Hypochromasia 1+ Anisocytosis 1+ Schistocytes None seen Sodium Potassium Chloride Carbon Dioxide Anion Gap BUN Creatinine Estim Creat Clear Calc Estimated GFR Glucose POC Capillary Glucose 104 Calcium Phosphorus Magnesium Total Bilirubin AST ALT Alkaline Phosphatase Total Protein Albumin Random Vancomycin 14.1
[2025-04-25] MEDS: ASPIRIN 81 MG ENTERIC TABLET PO (17:06)
[2025-04-25] MEDS: VITAMIN B COMPLEX CAPSULE 1 CAP PO (17:06)
[2025-04-25] MEDS: FUROSEMIDE 80 MG TABLET PO (17:06)
[2025-04-25] MEDS: PENTOXIFYLLINE 400 MG TABCR PO (17:20)
[2025-04-25] MEDS: VANCOMYCIN 1,000 MG/NS 250 ML 1,000 MG/250 ML BAG 250 MG IVPB (17:20)
[2025-04-25] MEDS: TAMSULOSIN HCL 0.4 MG CAPSULE PO (19:58)
[2025-04-25] MEDS: ATORVASTATIN 20 MG TABLET PO (19:58)
[2025-04-25] MEDS: MELATONIN 3 MG TABLET PO (19:58)
[2025-04-25] MEDS: ACETAMINOPHEN 325 MG TABLET 650 MG PO (19:59)
--- NOTE | 2025-04-25 20:19 | WNDPHOTO ---
Addendum entered by Temi Julio, RN 04/25/25 20:29: Right Jacinto Original Note: PHOTO ONLY - See Nursing Notes and/ or assessments for documentation.
[2025-04-25] MEDS: HYDROcodone/acetaminophen (*CRX) 5-325 MG TABLET 1 TAB PO (21:49)
[2025-04-26] VITALS (31 sets, daily range): BP systolic 104–113; BP diastolic 47–57; PULSE 63–84; RESP 14–20; TEMP 36.6–36.9; O2SAT 95–100
[2025-04-26 04:45] LABS: Hematocrit 28.2 % (42.0-52.0); Hemoglobin 8.3 g/dL (14.0-18.0); Immature Granulocyte Percent A 0.7 % (0-0.5); Lymphocytes Absolute Auto 0.58 K/mm3 (0.9-3.2); Mean Corpuscular HGB Conc 29.4 g/dl (32-36); Mean Corpuscular Hemoglobin 25.7 pg (26-34); Mean Corpuscular Volume 87.3 fl (80-100); Nucleated Red Blood Cells Absolute Auto 0.030 K/mm3 (0.0-0.012); Nucleated Red Blood Cells Perc 0.4 % (0.0-0.2); Platelet Count Result 261 k/mm3 (150-375); Red Blood Count 3.23 M/mm3 (4.6-6.20); White Blood Count 7.0 K/mm3 (4.5-10.0)
[2025-04-26 05:02] LABS: Alanine Aminotransferase 380 U/L (6-50); Albumin Level 3.2 g/dL (3.5-5.1); Alkaline Phosphatase 62 U/L (38-126); Anion Gap 7 mmol/L (4-12); Aspartate Amino Transferase 180 U/L (17-59); Bilirubin,Total 0.4 mg/dL (0.2-1.3); Blood Urea Nitrogen 18 mg/dL (9-20); Calcium 9.2 mg/dL (8.4-10.2); Carbon Dioxide 30 mmol/L (22-30); Chloride 95 mmol/L (98-107); Estimated CRCL calculation 14 ml/min; Estimated Glomerular Filt Rate 16; Glucose 97 mg/dL (65-110); Magnesium 2.1 mg/dL (1.6-2.3); Potassium 4.1 mmol/L (3.4-5.0); Sodium 132 mmol/L (137-145); Total Protein 5.9 g/dL (6.3-8.2)
[2025-04-26 05:10] LABS: Anisocytosis 1+; Band Neutrophils Percent 0 % (0-6); Hypochromasia 1+; Schistocytes None Seen
[2025-04-26] MEDS: LORATADINE 10 MG TABLET PO (07:48)
[2025-04-26] MEDS: SEVELAMER CARBONATE 800 MG TABLET PO ×3 (07:49→17:27)
[2025-04-26] MEDS: CINACALCET 30 MG TABLET 90 MG PO (07:49)
[2025-04-26] MEDS: GABAPENTIN 100 MG CAPSULE PO ×3 (07:49→17:27)
[2025-04-26] MEDS: FINASTERIDE 5 MG TABLET PO (07:49)
[2025-04-26] MEDS: ASPIRIN 81 MG ENTERIC TABLET PO (07:49)
[2025-04-26] MEDS: VITAMIN B COMPLEX CAPSULE 1 CAP PO (07:49)
[2025-04-26] MEDS: traMADol HCL (*CRX) 50 MG TABLET PO ×2 (07:49→17:27)
[2025-04-26] MEDS: FUROSEMIDE 80 MG TABLET PO ×2 (07:50→17:27)
[2025-04-26] MEDS: UMECLIDINIUM BROMIDE 62.5 MCG ELLIPTA 1 PUFF INHALATION (09:39)
--- NOTE | 2025-04-26 10:32 | P.PNNP_ITS ---
Progress Note: A&P Assessment and Plan (1) End stage renal disease: Code(s): N18.6 - End stage renal disease Status: Chronic Assessment and Plan: * HD yesterday * continue T/T/S outpatient dialysis schedule while hospitalized * follow electrolytes, volume status, and clearance (2) Acute on chronic hypoxic respiratory failure: Code(s): J96.21 - Acute and chronic respiratory failure with hypoxia Status: Acute Assessment and Plan: * due to several issues: * pulmonary edema * bilateral pleural effusions * pneumonia (?) * chronic CHF * COPD * relative anemia * aggressive fluid removal/ultrafiltration with dialysis * wean off supplemental oxygen as tolerated * follow respiratory status (3) Bacteremia: Code(s): R78.81 - Bacteremia Status: Acute Assessment and Plan: * blood culture with Staphylococcus capitis (1 set out of 2) * source?? -- real versus contamination?? * on vancomycin * follow repeat cultures (4) Transaminitis: Code(s): R74.01 - Elevation of levels of liver transaminase levels Status: Acute Assessment and Plan: * as noted by admission testing * due to CHF/pasive congestion of liver (?) * follow trend of LFTs (5) Volume overload: Code(s): E87.70 - Fluid overload, unspecified Status: Acute Assessment and Plan: * as noted by admission imaging findings * fluid/ultrafiltration with dialysis to maintain euvolemia * in the past, has been complicated by his COPD/reactive airway disease + CARITO (6) Anemia: Code(s): D64.9 - Anemia, unspecified Status: Chronic Assessment and Plan: * due to ESRD * possibly worsened by previous GI bleed issues * Epogen with HD * PRBC transfusion per protocol * anticoagulation on hold * follow trend of H/H (7) Atrial fibrillation: Code(s): I48.91 - Unspecified atrial fibrillation Status: Chronic Assessment and Plan: * rate control strategy * Cardiology recommendations noted * anticoagulation on hold (8) Essential (primary) hypertension: Code(s): I10 - Essential (primary) hypertension Status: Chronic Assessment and Plan: * reasonable control * follow trend of hemodynamics (9) Chronic obstructive pulmonary disease: Code(s): J44.9 - Chronic obstructive pulmonary disease, unspecified Status: Chronic Assessment and Plan: * continue home inhalers * nebulizer treatments PRN (10) IDDM (insulin dependent diabetes mellitus): Status: Chronic Assessment and Plan: * follow accu-cheks * glycemic control per hospitalist Will continue to follow. L Subjective Date/time seen: 04/26/25 10:32 Interval history: Follow-up for end stage renal disease on hemodialysis. Tolerated dialysis treatment yesterday without any issues or problems; no acute complaints voiced at the time of my visit other than generalized weakness and fatigue; no events overnight and tolerating BiPAP therapy; no apparent distress noted. Exam 2 Narrative: General: elderly WD/WN male in NAD (on BiPAP) Heart: IRRR, normal S1 and S2; no rub Lungs: coarse breath sounds; decreased at bases Abdomen: soft, nontender, nondistended, positive bowel sounds Extremities: no cyanosis or clubbing; trace edema Skin: no rash Objective Data Vital Signs Vital Signs: Vital Signs Temp Pulse Resp BP Pulse Ox O2 Del Method O2 Flow Rate 04/26/25 10:00 67 04/26/25 09:54 71 16 04/26/25 09:39 72 16 04/26/25 09:39 97 Nasal Cannula 3 04/26/25 08:00 84 04/26/25 07:58 82 16 95 Nasal Cannula 3 04/26/25 07:49 81 04/26/25 07:42 98.5 F 77 18 108/50 L 100 04/26/25 06:00 74 04/26/25 04:00 97.9 F 71 14 110/51 L 97 04/26/25 04:00 100 BiPAP 04/26/25 04:00 71 04/26/25 02:41 73 15 04/26/25 02:36 66 14 04/26/25 02:34 66 14 100 BiPAP 04/26/25 02:00 70 04/26/25 00:00 100 BiPAP 04/26/25 00:00 68 04/25/25 23:30 98.6 F 77 14 109/33 L 100 04/25/25 22:15 78 17 98 BiPAP 04/25/25 22:00 76 04/25/25 20:43 75 16 04/25/25 20:39 98 4 04/25/25 20:32 79 16 04/25/25 20:00 97 Nasal Cannula 3 04/25/25 20:00 78 04/25/25 19:59 97.6 F 84 20 92/76 L 100 04/25/25 19:59 81 04/25/25 18:00 83 04/25/25 16:00 83 04/25/25 16:00 100 Nasal Cannula 4 04/25/25 16:00 98.1 F 84 16 116/57 L 95 04/25/25 14:00 78 04/25/25 13:56 82 16 04/25/25 13:46 78 16 04/25/25 12:35 98.2 F 77 16 124/63 97 04/25/25 12:29 76 122/55 L 04/25/25 12:15 82 123/57 L 04/25/25 12:00 82 04/25/25 12:00 100 Nasal Cannula 4 04/25/25 12:00 82 111/58 L 04/25/25 11:45 72 116/57 L 04/25/25 11:30 76 112/51 L 04/25/25 11:15 75 121/52 L 04/25/25 11:00 67 115/61 Intake/Output Intake/Output: Intake & Output 04/23/25 04/24/25 04/25/25 04/26/25 23:59 23:59 23:59 23:59 Intake Total 960 1070 360 Output Total 3750 5700 Balance -3750 960 -4630 360 Meds/Results Medications: Active Medications Generic Name Dose Route Start Last Admin Trade Name Freq PRN Reason Stop Dose Admin Acetaminophen 650 mg 04/23/25 13:39 04/25/25 19:59 Acetaminophen 325 Mg Tablet PO 650 mg Q4H PRN Administration Mild Pain (1-3) Or Fever Hydrocodone Bitart/Acetaminophen 1 tab 04/25/25 20:28 04/25/25 21:49 Hydrocodone/Acetaminophen (*Crx) 5-325 Mg Tablet PO 1 tab Q4H PRN Administration Pain Rated 4-6 Aspirin 81 mg 04/24/25 09:00 04/26/25 07:49 Aspirin 81 Mg Enteric Tablet PO 81 mg DAILY DAVID Administration Atorvastatin Calcium 20 mg 04/23/25 21:00 04/25/25 19:58 Atorvastatin 20 Mg Tablet PO 20 mg HS DAVID Administration Carvedilol 25 mg 04/23/25 21:00 04/26/25 07:49 Carvedilol 25 Mg Tablet PO 25 mg Q12HR DAVID Administration Cinacalcet 90 mg 04/24/25 09:00 04/26/25 07:49 Cinacalcet 30 Mg Tablet PO 90 mg DAILY DAVID Administration Dextrose 12.5 gm 04/23/25 13:42 Dextrose 50% 25 Gm/50 Ml Syringe IV PUSH PRN PRN Hypoglycemia Protocol Finasteride 5 mg 04/24/25 09:00 04/26/25 07:49 Finasteride 5 Mg Tablet PO 5 mg QAM DAVID Administration Furosemide 80 mg 04/23/25 17:00 04/26/25 07:50 Furosemide 80 Mg Tablet PO 80 mg BID DAVID Administration Gabapentin 100 mg 04/23/25 17:00 04/26/25 07:49 Gabapentin 100 Mg Capsule PO 100 mg TID DAVID Administration Glucagon 1 mg 04/23/25 13:42 Glucagon For Inj 1 Mg Vial IM PRN PRN Hypoglycemia Protocol Glucose 15 gm 04/23/25 13:42 Glucose Oral Gel 15 Gm Of Glucse In 37.5 Gm Tube PO PRN PRN Hypoglycemia Protocol Albumin Human 50 mls @ 999 mls/hr 04/23/25 10:08 Albutein IVPB 05/23/25 10:07 Q10M PRN HYPOTENSION Dextrose 1,000 mls @ 100 mls/hr 04/23/25 13:42 Dextrose 5% 1,000 Ml IVPB PRN PRN Hypoglycemia Protocol Insulin Aspart 3 - 6 units 04/23/25 17:00 04/26/25 07:36 Insulin Aspart (*Bkc) 100 Units/Ml SUB-Q Not Given TIDWM DAVID Protocol Insulin Aspart 1 - 3 units 04/23/25 21:00 04/25/25 21:51 Insulin Aspart (*Bkc) 100 Units/Ml SUB-Q Not Given HS DAVID Protocol Levalbuterol HCl 0.63 mg 04/23/25 14:00 04/26/25 09:38 Levalbuterol Neb 1.25 Mg/3 Ml INHALATION 0.63 mg Q6HRT DAVID Administration Loratadine 10 mg 04/24/25 09:00 04/26/25 07:48 Loratadine 10 Mg Tablet PO 10 mg DAILY DAVID Administration Magnesium Citrate 296 ml 04/23/25 13:39 Magnesium Citrate 300 Ml Btl PO QAM PRN constipation Magnesium Hydroxide 30 ml 04/23/25 13:39 Magnesium Hydroxide Susp 30 Ml Udc PO HS PRN constipation Melatonin 3 mg 04/23/25 21:00 04/25/25 19:58 Melatonin 3 Mg Tablet PO 3 mg HS DAVID Administration Ondansetron HCl 4 mg 04/23/25 08:04 Ondansetron Inj 4 Mg/2 Ml Vial IV PUSH Q4H PRN Nausea Pentoxifylline 400 mg 04/23/25 18:00 04/25/25 17:20 Pentoxifylline 400 Mg Tabcr PO 400 mg QPM DAVID Administration Perflutren Lipid Microsphere 0 ml 04/25/25 17:49 Perflutren Lipid Microspheres 1.5 Ml Vial Diluted To 10 Ml Total Volume IV PUSH 04/28/25 17:49 ONCE PRN adequate visualization Protocol Sevelamer Carbonate 800 mg 04/23/25 19:20 04/26/25 07:49 Sevelamer Carbonate 800 Mg Tablet PO 800 mg TIDWM DAVID Administration Tamsulosin HCl 0.4 mg 04/23/25 21:00 04/25/25 19:58 Tamsulosin Hcl 0.4 Mg Capsule PO 0.4 mg QHS DAVID Administration Tramadol HCl 50 mg 04/23/25 17:00 04/26/25 07:49 Tramadol Hcl (*Crx) 50 Mg Tablet PO 50 mg BID DAVID Administration Umeclidinium [place] 1 puff 04/24/25 09:00 04/26/25 09:39 Umeclidinium [place] 62.5 Mcg Ellipta INHALATION 1 puff DAILY DAVID Administration Vitamin B Complex 1 cap 04/24/25 09:00 04/26/25 07:49 Vitamin B Complex Capsule PO 1 cap DAILY DAVID Administration Radiology Results: ITS Impressions Chest/Abdomen/Pelvis CT 04/23/25 07:40 Impression: Moderate bilateral pleural effusions with mild pulmonary edema and bibasilar atelectatic change. Small gallstone. Splenomegaly, uncertain etiology. Mild gallbladder wall thickening is nonspecific, probably most likely related to the presence of ascites. If there is concern for acute cholecystitis, consider HIDA scan. Marked prostatomegaly. Chest X-Ray 04/24/25 16:32 IMPRESSION: Bilateral pneumonia with possible underlying pulmonary edema. Changes are slightly increased compared to previous study. Labs Labs: Laboratory Tests 04/26/25 04:30 04/26/25 04:30 Calcium 9.2 Phosphorus 3.5 Magnesium 2.1 Total Bilirubin 0.4 AST 180 H ALT 380 H Alkaline Phosphatase 62 Total Protein 5.9 L Albumin 3.2 L Microbiology 04/23/25 04:24 Blood Blood Culture - Preliminary Staphylococcus capitis
[2025-04-26] MEDS: HYDROcodone/acetaminophen (*CRX) 5-325 MG TABLET 1 TAB PO ×2 (12:05→20:27)
--- NOTE | 2025-04-26 13:23 | P.PNCA_ITS ---
Progress Note: A&P Assessment and Plan (1) Atrial fibrillation with controlled ventricular rate: Code(s): I48.91 - Unspecified atrial fibrillation Status: Acute Plan Elevated troponin likely demand ischemia Atrial fibrillation currently rate controlled Chronic hypoxemic respiratory failure Acute on chronic diastolic heart failure End-stage renal disease on hemodialysis Diabetes mellitus type 2 Further evaluation treatment of sepsis per primary team Hold anticoagulation until further evaluation for risk of bleeding Transthoracic echocardiogram Management of fluid overload and volume status per Nephrology Subjective Date/time seen: 04/26/25 13:23 Interval history: No acute events Review of Systems Review of Systems: All systems reviewed & are unremarkable except as noted in HPI and below Exam Narrative: GENERAL APPEARANCE: elderly but well developed well nourished male in NAD (on BiPAP) HEENT: normocephalic, atraumatic, normal conjunctiva and sclera, nares patient NECK: no lymphadenopathy, thyromegaly, or JVD MOUTH: normal lips, teeth, and gums CARDIOVASCULAR: Irregular irregularity, normal S1 and S2, no rub RESPIRATORY: clear anteriorly; decreased at bases ABDOMEN: soft, nontender, nondistended, positive bowel sounds present EXTREMITIES: no evidence of cyanosis, clubbing; trace edema Objective Data Vital Signs Vital Signs: Vital Signs - 24 hr 04/25/25 13:46 04/25/25 13:56 04/25/25 14:00 Temperature Pulse Rate 78 82 78 Respiratory Rate 16 16 Blood Pressure Pulse Oximetry Oxygen Delivery Oxygen Flow Rate 04/25/25 16:00 04/25/25 16:00 04/25/25 16:00 Temperature 36.7 C Pulse Rate 84 83 Respiratory Rate 16 Blood Pressure 116/57 L Pulse Oximetry 95 100 Oxygen Delivery Nasal Cannula Oxygen Flow Rate 4 04/25/25 18:00 04/25/25 19:59 04/25/25 19:59 Temperature 36.4 C Pulse Rate 83 81 84 Respiratory Rate 20 Blood Pressure 92/76 L Pulse Oximetry 100 Oxygen Delivery Oxygen Flow Rate 04/25/25 20:00 04/25/25 20:00 04/25/25 20:32 Temperature Pulse Rate 78 79 Respiratory Rate 16 Blood Pressure Pulse Oximetry 97 Oxygen Delivery Nasal Cannula Oxygen Flow Rate 3 04/25/25 20:39 04/25/25 20:43 04/25/25 22:00 Temperature Pulse Rate 75 76 Respiratory Rate 16 Blood Pressure Pulse Oximetry 98 Oxygen Delivery Oxygen Flow Rate 4 04/25/25 22:15 04/25/25 23:30 04/26/25 00:00 Temperature 37.0 C Pulse Rate 78 77 68 Respiratory Rate 17 14 Blood Pressure 109/33 L Pulse Oximetry 98 100 Oxygen Delivery BiPAP Oxygen Flow Rate 04/26/25 00:00 04/26/25 02:00 04/26/25 02:34 Temperature Pulse Rate 70 66 Respiratory Rate 14 Blood Pressure Pulse Oximetry 100 100 Oxygen Delivery BiPAP BiPAP Oxygen Flow Rate 04/26/25 02:36 04/26/25 02:41 04/26/25 04:00 Temperature Pulse Rate 66 73 71 Respiratory Rate 14 15 Blood Pressure Pulse Oximetry Oxygen Delivery Oxygen Flow Rate 04/26/25 04:00 04/26/25 04:00 04/26/25 06:00 Temperature 36.6 C Pulse Rate 71 74 Respiratory Rate 14 Blood Pressure 110/51 L Pulse Oximetry 100 97 Oxygen Delivery BiPAP Oxygen Flow Rate 04/26/25 07:42 04/26/25 07:49 04/26/25 07:58 Temperature 36.9 C Pulse Rate 77 81 82 Respiratory Rate 18 16 Blood Pressure 108/50 L Pulse Oximetry 100 95 Oxygen Delivery Nasal Cannula Oxygen Flow Rate 3 04/26/25 08:00 04/26/25 09:39 04/26/25 09:39 Temperature Pulse Rate 84 72 Respiratory Rate 16 Blood Pressure Pulse Oximetry 97 Oxygen Delivery Nasal Cannula Oxygen Flow Rate 3 04/26/25 09:54 04/26/25 10:00 04/26/25 11:43 Temperature Pulse Rate 71 67 67 Respiratory Rate 16 16 Blood Pressure Pulse Oximetry 95 Oxygen Delivery Nasal Cannula Oxygen Flow Rate 3 04/26/25 12:00 04/26/25 12:00 Temperature 36.9 C Pulse Rate 65 74 Respiratory Rate 16 Blood Pressure 110/57 L Pulse Oximetry 97 Oxygen Delivery Oxygen Flow Rate Intake/Output Intake/Output: Intake & Output 04/23/25 04/24/25 04/25/25 04/26/25 23:59 23:59 23:59 23:59 Intake Total 960 1070 360 Output Total 3750 5700 Balance -3750 960 -4630 360 Meds/Results Medications: Active Medications Generic Name Dose Route Start Last Admin Trade Name Freq PRN Reason Stop Dose Admin Acetaminophen 650 mg 04/23/25 13:39 04/25/25 19:59 Acetaminophen 325 Mg Tablet PO 650 mg Q4H PRN Administration Mild Pain (1-3) Or Fever Hydrocodone Bitart/Acetaminophen 1 tab 04/25/25 20:28 04/26/25 12:05 Hydrocodone/Acetaminophen (*Crx) 5-325 Mg Tablet PO 1 tab Q4H PRN Administration Pain Rated 4-6 Aspirin 81 mg 04/24/25 09:00 04/26/25 07:49 Aspirin 81 Mg Enteric Tablet PO 81 mg DAILY DAVID Administration Atorvastatin Calcium 20 mg 04/23/25 21:00 04/25/25 19:58 Atorvastatin 20 Mg Tablet PO 20 mg HS DAVID Administration Carvedilol 25 mg 04/23/25 21:00 04/26/25 07:49 Carvedilol 25 Mg Tablet PO 25 mg Q12HR DAVID Administration Cinacalcet 90 mg 04/24/25 09:00 04/26/25 07:49 Cinacalcet 30 Mg Tablet PO 90 mg DAILY DAVID Administration Dextrose 12.5 gm 04/23/25 13:42 Dextrose 50% 25 Gm/50 Ml Syringe IV PUSH PRN PRN Hypoglycemia Protocol Finasteride 5 mg 04/24/25 09:00 04/26/25 07:49 Finasteride 5 Mg Tablet PO 5 mg QAM DAVID Administration Furosemide 80 mg 04/23/25 17:00 04/26/25 07:50 Furosemide 80 Mg Tablet PO 80 mg BID DAVID Administration Gabapentin 100 mg 04/23/25 17:00 04/26/25 12:03 Gabapentin 100 Mg Capsule PO 100 mg TID DAVID Administration Glucagon 1 mg 04/23/25 13:42 Glucagon For Inj 1 Mg Vial IM PRN PRN Hypoglycemia Protocol Glucose 15 gm 04/23/25 13:42 Glucose Oral Gel 15 Gm Of Glucse In 37.5 Gm Tube PO PRN PRN Hypoglycemia Protocol Albumin Human 50 mls @ 999 mls/hr 04/23/25 10:08 Albutein IVPB 05/23/25 10:07 Q10M PRN HYPOTENSION Dextrose 1,000 mls @ 100 mls/hr 04/23/25 13:42 Dextrose 5% 1,000 Ml IVPB PRN PRN Hypoglycemia Protocol Insulin Aspart 3 - 6 units 04/23/25 17:00 04/26/25 11:48 Insulin Aspart (*Bkc) 100 Units/Ml SUB-Q Not Given TIDWM DAVID Protocol Insulin Aspart 1 - 3 units 04/23/25 21:00 04/25/25 21:51 Insulin Aspart (*Bkc) 100 Units/Ml SUB-Q Not Given HS DAVID Protocol Levalbuterol HCl 0.63 mg 04/23/25 14:00 04/26/25 09:38 Levalbuterol Neb 1.25 Mg/3 Ml INHALATION 0.63 mg Q6HRT DAVID Administration Loratadine 10 mg 04/24/25 09:00 04/26/25 07:48 Loratadine 10 Mg Tablet PO 10 mg DAILY DAVID Administration Magnesium Citrate 296 ml 04/23/25 13:39 Magnesium Citrate 300 Ml Btl PO QAM PRN constipation Magnesium Hydroxide 30 ml 04/23/25 13:39 Magnesium Hydroxide Susp 30 Ml Udc PO HS PRN constipation Melatonin 3 mg 04/23/25 21:00 04/25/25 19:58 Melatonin 3 Mg Tablet PO 3 mg HS DAVID Administration Ondansetron HCl 4 mg 04/23/25 08:04 Ondansetron Inj 4 Mg/2 Ml Vial IV PUSH Q4H PRN Nausea Pentoxifylline 400 mg 04/23/25 18:00 04/25/25 17:20 Pentoxifylline 400 Mg Tabcr PO 400 mg QPM DAVID Administration Perflutren Lipid Microsphere 0 ml 04/25/25 17:49 Perflutren Lipid Microspheres 1.5 Ml Vial Diluted To 10 Ml Total Volume IV PUSH 04/28/25 17:49 ONCE PRN adequate visualization Protocol Sevelamer Carbonate 800 mg 04/23/25 19:20 04/26/25 11:48 Sevelamer Carbonate 800 Mg Tablet PO 800 mg TIDWM DAVID Administration Tamsulosin HCl 0.4 mg 04/23/25 21:00 04/25/25 19:58 Tamsulosin Hcl 0.4 Mg Capsule PO 0.4 mg QHS DAVID Administration Tramadol HCl 50 mg 04/23/25 17:00 04/26/25 07:49 Tramadol Hcl (*Crx) 50 Mg Tablet PO 50 mg BID DAVID Administration Umeclidinium Only 1 puff 04/24/25 09:00 04/26/25 09:39 Umeclidinium Only 62.5 Mcg Ellipta INHALATION 1 puff DAILY DAVID Administration Vitamin B Complex 1 cap 04/24/25 09:00 04/26/25 07:49 Vitamin B Complex Capsule PO 1 cap DAILY DAVID Administration Radiology Results: ITS Impressions Chest/Abdomen/Pelvis CT 04/23/25 07:40 Impression: Moderate bilateral pleural effusions with mild pulmonary edema and bibasilar atelectatic change. Small gallstone. Splenomegaly, uncertain etiology. Mild gallbladder wall thickening is nonspecific, probably most likely related to the presence of ascites. If there is concern for acute cholecystitis, consider HIDA scan. Marked prostatomegaly. Chest X-Ray 04/24/25 16:32 IMPRESSION: Bilateral pneumonia with possible underlying pulmonary edema. Changes are slightly increased compared to previous study. Labs Labs: Laboratory Results - last 24 hr 04/25/25 04/25/25 04/26/25 16:23 20:39 04:30 WBC 7.0 RBC 3.23 L Hgb 8.3 L Hct 28.2 L MCV 87.3 MCH 25.7 L MCHC 29.4 L RDW 18.3 H Plt Count 261 MPV 9.8 Immature Gran % (Auto) 0.7 H Neut % (Auto) 78.9 H Lymph % (Auto) 8.3 L Edwards % (Auto) 9.3 H Eos % (Auto) 1.9 Baso % (Auto) 0.9 Lymph # (Auto) 0.58 L Edwards # (Auto) 0.7 H Eos # (Auto) 0.1 Baso # (Auto) 0.1 Abs Immat Gran (auto) 0.05 H Absolute Neuts (auto) 5.5 Absolute Nucleated RBC 0.030 H Band Neutrophils % 0 Nucleated RBC % 0.4 H Platelet Estimate Adequate Hypochromasia 1+ Anisocytosis 1+ Schistocytes None seen Sodium 132 L Potassium 4.1 Chloride 95 L Carbon Dioxide 30 Anion Gap 7 BUN 18 D Creatinine 3.79 H Estim Creat Clear Calc 14 Estimated GFR 16 L Glucose 97 POC Capillary Glucose 117 H 150 H Calcium 9.2 Phosphorus 3.5 Magnesium 2.1 Total Bilirubin 0.4 AST 180 H ALT 380 H Alkaline Phosphatase 62 Total Protein 5.9 L Albumin 3.2 L 04/26/25 04/26/25 07:29 11:47 WBC RBC Hgb Hct MCV MCH MCHC RDW Plt Count MPV Immature Gran % (Auto) Neut % (Auto) Lymph % (Auto) Edwards % (Auto) Eos % (Auto) Baso % (Auto) Lymph # (Auto) Edwards # (Auto) Eos # (Auto) Baso # (Auto) Abs Immat Gran (auto) Absolute Neuts (auto) Absolute Nucleated RBC Band Neutrophils % Nucleated RBC % Platelet Estimate Hypochromasia Anisocytosis Schistocytes Sodium Potassium Chloride Carbon Dioxide Anion Gap BUN Creatinine Estim Creat Clear Calc Estimated GFR Glucose POC Capillary Glucose 103 127 H Calcium Phosphorus Magnesium Total Bilirubin AST ALT Alkaline Phosphatase Total Protein Albumin
--- NOTE | 2025-04-26 14:12 | P.PNIM_ITS ---
Progress Note: A&P Assessment and Plan (1) Acute respiratory failure: Code(s): J96.00 - Acute respiratory failure, unspecified whether with hypoxia or hypercapnia Status: Acute (2) Bacteremia: Code(s): R78.81 - Bacteremia Status: Acute (3) Acute exacerbation of CHF (congestive heart failure): Qualifiers: Heart failure type: unspecified Qualified Code(s): I50.9 - Heart failure, unspecified Code(s): I50.9 - Heart failure, unspecified Status: Acute (4) Bilateral pleural effusion: Code(s): J90 - Pleural effusion, not elsewhere classified Status: Acute (5) Non-ST elevation WI (NSTEMI): Code(s): I21.4 - Non-ST elevation (NSTEMI) myocardial infarction Status: Acute (6) Atrial fibrillation with controlled ventricular rate: Code(s): I48.91 - Unspecified atrial fibrillation Status: Acute (7) ESRD on dialysis: Code(s): N18.6 - End stage renal disease; Z99.2 - Dependence on renal dialysis Status: Acute (8) Transaminitis: Code(s): R74.01 - Elevation of levels of liver transaminase levels Status: Acute (9) Normocytic anemia: Code(s): D64.9 - Anemia, unspecified Status: Acute (10) AVM (arteriovenous malformation) of colon, acquired with hemorrhage: Code(s): K55.21 - Angiodysplasia of colon with hemorrhage Status: Acute (11) Insulin dependent type 2 diabetes mellitus: Onset Date: ~2009 Code(s): E11.9 - Type 2 diabetes mellitus without complications; Z79.4 - vermin exterminator (current) use of insulin Status: Acute (12) Chronic obstructive pulmonary disease: Code(s): J44.9 - Chronic obstructive pulmonary disease, unspecified Status: Acute (13) Frequent falls: Code(s): R29.6 - Repeated falls Status: Acute (14) Enlarged prostate: Code(s): N40.0 - Benign prostatic hyperplasia without lower urinary tract symptoms Status: Acute (15) Pressure ulcer of left heel, unstageable: Code(s): L89.620 - Pressure ulcer of left heel, unstageable Status: Acute (16) Seizure disorder: Code(s): G40.909 - Epilepsy, unspecified, not intractable, without status epilepticus Status: Acute Plan Acute resp failure Weakness in setting of ESRD and hyperkalemia. BCx positive for Staph capitis in anaerobic bottle. Probably a contaminate. CT Chest showing moderate bilateral pleural effusions and pulmonary edema. Maddison bar patient with fluid overload resulting in his acute hypoxic resp failure. Echo in Oct showing EF 60-65% with indeterminate diastolic function. [place] he has acute on chronic diastolic CHF. Hx of mild CO2 retention. Weaned to 3L now. Continue BiPAP during the day as needed and continue at night. Nephrology on board. PT/OT ordered. Echo repeated and results pending. Check apnea link tonight on home O2. Elevated Trop related to demand ischemia. He denies chest pain. Cardiology following and appreciate their input. Echo recommended so this was ordered. Continue ASA, lipitor and Coreg. Transaminitis - etiology unclear. Acetaminophen <10. CT Abd showing mild GB wall thickening and small GS. Consider related to fluid overload/hepatic congestion. AST/ALT worse today. Check RUQ US. Hold lipitor. ESRD on HD T/T/S - HD per nephrology. HD 04/23 with 3L removed and yesterday with 4L removed. Hyperkalemia - potassium was 5.1 but better after HD. Follow pleural effusions - related to fluid overload and dCHF. Dialysis to control fluid status. Chronic anemia - Hgb mostly in the 9-10 range but dropped to 7-8 range last month. Hgb on admission 8.8 but dropped to 7.7 today. Receiving Epoetin Transfuse if HB<[address] Showed marked prostatomegaly. Continue Flomax and Proscar Follow with PCP/Urology as outpatient PAF Eliguis on hold. Resume when okay with Cardiology Rate controlled CARITO Patient has hx of CARITO but does not wear CPAP at home. Hold CPAP and check apnea link History of GI bleeding Recent EGD and colonoscopy showed AVM. Eliquis held continue to monitor HLD - Continue statin. Monitor LFTs HTN Patient's blood pressure was reviewed on 04/26 Blood pressure well controlled. Will continue to monitor. DM2 The patient's blood glucose was reviewed on 04/26 Glucose remains well controlled. Continue AccuCheks covering with sliding scale. Hypoglycemia protocol available as needed. Continue to monitor COPD - Stable. No wheezing. Continue Incruse inhaler and Xopenex. DVT Prophylaxis - SCD; Eliquis on hold per Cardiology Code status - Full Disp - PT/OT Subjective Date/time seen: 04/26/25 14:12 Interval history: 79yo male with COPD, DM2,HTN, pAFib on chronic anticoagulation with Eliquis, PAD, CARITO, and ESRD on dialysis T/Th/Sat comes in from intermediate for weakness and pain all over. Feels weak. No problems overnight. Tolerated bipap last night. Exam Narrative: AF 98.5 110/57 74 16 97% 3L Gen - NARD Chest - lungs clear anteriorly CV - irregularS1/S2. Tele showing AFib with occasional pause Abd - Soft, NT/ND, Positive BS Ext - No pedal edema. Left upper arm fistula thrill and bruit Psych - Nml mood and affect Skin - Warm and dry. right griffin and right heel dressing clean and dry Objective Data Vital Signs Vital Signs: Vital Signs - 24 hr 04/25/25 16:00 04/25/25 16:00 04/25/25 16:00 Temperature 98.1 F Pulse Rate 84 83 Respiratory Rate 16 Blood Pressure 116/57 L Pulse Oximetry 95 100 Oxygen Delivery Nasal Cannula Oxygen Flow Rate 4 04/25/25 18:00 04/25/25 19:59 04/25/25 19:59 Temperature 97.6 F Pulse Rate 83 81 84 Respiratory Rate 20 Blood Pressure 92/76 L Pulse Oximetry 100 Oxygen Delivery Oxygen Flow Rate 04/25/25 20:00 04/25/25 20:00 04/25/25 20:32 Temperature Pulse Rate 78 79 Respiratory Rate 16 Blood Pressure Pulse Oximetry 97 Oxygen Delivery Nasal Cannula Oxygen Flow Rate 3 04/25/25 20:39 04/25/25 20:43 04/25/25 22:00 Temperature Pulse Rate 75 76 Respiratory Rate 16 Blood Pressure Pulse Oximetry 98 Oxygen Delivery Oxygen Flow Rate 4 04/25/25 22:15 04/25/25 23:30 04/26/25 00:00 Temperature 98.6 F Pulse Rate 78 77 68 Respiratory Rate 17 14 Blood Pressure 109/33 L Pulse Oximetry 98 100 Oxygen Delivery BiPAP Oxygen Flow Rate 04/26/25 00:00 04/26/25 02:00 04/26/25 02:34 Temperature Pulse Rate 70 66 Respiratory Rate 14 Blood Pressure Pulse Oximetry 100 100 Oxygen Delivery BiPAP BiPAP Oxygen Flow Rate 04/26/25 02:36 04/26/25 02:41 04/26/25 04:00 Temperature Pulse Rate 66 73 71 Respiratory Rate 14 15 Blood Pressure Pulse Oximetry Oxygen Delivery Oxygen Flow Rate 04/26/25 04:00 04/26/25 04:00 04/26/25 06:00 Temperature 97.9 F Pulse Rate 71 74 Respiratory Rate 14 Blood Pressure 110/51 L Pulse Oximetry 100 97 Oxygen Delivery BiPAP Oxygen Flow Rate 04/26/25 07:42 04/26/25 07:49 04/26/25 07:58 Temperature 98.5 F Pulse Rate 77 81 82 Respiratory Rate 18 16 Blood Pressure 108/50 L Pulse Oximetry 100 95 Oxygen Delivery Nasal Cannula Oxygen Flow Rate 3 04/26/25 08:00 04/26/25 09:39 04/26/25 09:39 Temperature Pulse Rate 84 72 Respiratory Rate 16 Blood Pressure Pulse Oximetry 97 Oxygen Delivery Nasal Cannula Oxygen Flow Rate 3 04/26/25 09:54 04/26/25 10:00 04/26/25 11:43 Temperature Pulse Rate 71 67 67 Respiratory Rate 16 16 Blood Pressure Pulse Oximetry 95 Oxygen Delivery Nasal Cannula Oxygen Flow Rate 3 04/26/25 12:00 04/26/25 12:00 Temperature 98.5 F Pulse Rate 65 74 Respiratory Rate 16 Blood Pressure 110/57 L Pulse Oximetry 97 Oxygen Delivery Oxygen Flow Rate Intake/Output Intake/Output: Intake & Output 04/23/25 04/24/25 04/25/25 04/26/25 23:59 23:59 23:59 23:59 Intake Total 960 1070 360 Output Total 3750 5700 Balance -3750 960 -4630 360 Meds/Results Medications: Active Medications Generic Name Dose Route Start Last Admin Trade Name Freq PRN Reason Stop Dose Admin Acetaminophen 650 mg 04/23/25 13:39 04/25/25 19:59 Acetaminophen 325 Mg Tablet PO 650 mg Q4H PRN Administration Mild Pain (1-3) Or Fever Hydrocodone Bitart/Acetaminophen 1 tab 04/25/25 20:28 04/26/25 12:05 Hydrocodone/Acetaminophen (*Crx) 5-325 Mg Tablet PO 1 tab Q4H PRN Administration Pain Rated 4-6 Aspirin 81 mg 04/24/25 09:00 04/26/25 07:49 Aspirin 81 Mg Enteric Tablet PO 81 mg DAILY DAVID Administration Atorvastatin Calcium 20 mg 04/23/25 21:00 04/25/25 19:58 Atorvastatin 20 Mg Tablet PO 20 mg HS DAVID Administration Carvedilol 25 mg 04/23/25 21:00 04/26/25 07:49 Carvedilol 25 Mg Tablet PO 25 mg Q12HR DAVID Administration Cinacalcet 90 mg 04/24/25 09:00 04/26/25 07:49 Cinacalcet 30 Mg Tablet PO 90 mg DAILY DAVID Administration Dextrose 12.5 gm 04/23/25 13:42 Dextrose 50% 25 Gm/50 Ml Syringe IV PUSH PRN PRN Hypoglycemia Protocol Finasteride 5 mg 04/24/25 09:00 04/26/25 07:49 Finasteride 5 Mg Tablet PO 5 mg QAM DAVID Administration Furosemide 80 mg 04/23/25 17:00 04/26/25 07:50 Furosemide 80 Mg Tablet PO 80 mg BID DAVID Administration Gabapentin 100 mg 04/23/25 17:00 04/26/25 12:03 Gabapentin 100 Mg Capsule PO 100 mg TID DAVID Administration Glucagon 1 mg 04/23/25 13:42 Glucagon For Inj 1 Mg Vial IM PRN PRN Hypoglycemia Protocol Glucose 15 gm 04/23/25 13:42 Glucose Oral Gel 15 Gm Of Glucse In 37.5 Gm Tube PO PRN PRN Hypoglycemia Protocol Albumin Human 50 mls @ 999 mls/hr 04/23/25 10:08 Albutein IVPB 05/23/25 10:07 Q10M PRN HYPOTENSION Dextrose 1,000 mls @ 100 mls/hr 04/23/25 13:42 Dextrose 5% 1,000 Ml IVPB PRN PRN Hypoglycemia Protocol Insulin Aspart 3 - 6 units 04/23/25 17:00 04/26/25 11:48 Insulin Aspart (*Bkc) 100 Units/Ml SUB-Q Not Given TIDWM DAVID Protocol Insulin Aspart 1 - 3 units 04/23/25 21:00 04/25/25 21:51 Insulin Aspart (*Bkc) 100 Units/Ml SUB-Q Not Given HS DAVID Protocol Levalbuterol HCl 0.63 mg 04/23/25 14:00 04/26/25 09:38 Levalbuterol Neb 1.25 Mg/3 Ml INHALATION 0.63 mg Q6HRT DAVID Administration Loratadine 10 mg 07/04/25 09:00 04/26/25 07:48 Loratadine 10 Mg Tablet PO 10 mg DAILY DAVID Administration Magnesium Citrate 296 ml 04/23/25 13:39 Magnesium Citrate 300 Ml Btl PO QAM PRN constipation Magnesium Hydroxide 30 ml 04/23/25 13:39 Magnesium Hydroxide Susp 30 Ml Udc PO HS PRN constipation Melatonin 3 mg 04/23/25 21:00 04/25/25 19:58 Melatonin 3 Mg Tablet PO 3 mg HS DAVID Administration Ondansetron HCl 4 mg 04/23/25 08:04 Ondansetron Inj 4 Mg/2 Ml Vial IV PUSH Q4H PRN Nausea Pentoxifylline 400 mg 04/23/25 18:00 04/25/25 17:20 Pentoxifylline 400 Mg Tabcr PO 400 mg QPM DAVID Administration Perflutren Lipid Microsphere 0 ml 04/25/25 17:49 Perflutren Lipid Microspheres 1.5 Ml Vial Diluted To 10 Ml Total Volume IV PUSH 04/28/25 17:49 ONCE PRN adequate visualization Protocol Sevelamer Carbonate 800 mg 04/23/25 19:20 04/26/25 11:48 Sevelamer Carbonate 800 Mg Tablet PO 800 mg TIDWM DAVID Administration Tamsulosin HCl 0.4 mg 04/23/25 21:00 04/25/25 19:58 Tamsulosin Hcl 0.4 Mg Capsule PO 0.4 mg QHS DAVID Administration Tramadol HCl 50 mg 04/23/25 17:00 04/26/25 07:49 Tramadol Hcl (*Crx) 50 Mg Tablet PO 50 mg BID DAVID Administration Umeclidinium [place] 1 puff 04/24/25 09:00 04/26/25 09:39 Umeclidinium [place] 62.5 Mcg Ellipta INHALATION 1 puff DAILY DAVID Administration Vitamin B Complex 1 cap 04/24/25 09:00 04/26/25 07:49 Vitamin B Complex Capsule PO 1 cap DAILY DAVID Administration Radiology Results: ITS Impressions Chest/Abdomen/Pelvis CT 04/23/25 07:40 Impression: Moderate bilateral pleural effusions with mild pulmonary edema and bibasilar atelectatic change. Small gallstone. Splenomegaly, uncertain etiology. Mild gallbladder wall thickening is nonspecific, probably most likely related to the presence of ascites. If there is concern for acute cholecystitis, consider HIDA scan. Marked prostatomegaly. Chest X-Ray 04/24/25 16:32 IMPRESSION: Bilateral pneumonia with possible underlying pulmonary edema. Changes are slightly increased compared to previous study. Labs Labs: Laboratory Results - last 24 hr 04/25/25 04/25/25 04/26/25 16:23 20:39 04:30 WBC 7.0 RBC 3.23 L Hgb 8.3 L Hct 28.2 L MCV 87.3 MCH 25.7 L MCHC 29.4 L RDW 18.3 H Plt Count 261 MPV 9.8 Immature Gran % (Auto) 0.7 H Neut % (Auto) 78.9 H Lymph % (Auto) 8.3 L [place] % (Auto) 9.3 H Eos % (Auto) 1.9 Baso % (Auto) 0.9 Lymph # (Auto) 0.58 L [place] # (Auto) 0.7 H Eos # (Auto) 0.1 Baso # (Auto) 0.1 Abs Immat Gran (auto) 0.05 H Absolute Neuts (auto) 5.5 Absolute Nucleated RBC 0.030 H Band Neutrophils % 0 Nucleated RBC % 0.4 H Platelet Estimate Adequate Hypochromasia 1+ Anisocytosis 1+ Schistocytes None seen Sodium 132 L Potassium 4.1 Chloride 95 L Carbon Dioxide 30 Anion Gap 7 BUN 18 D Creatinine 3.79 H Estim Creat Clear Calc 14 Estimated GFR 16 L Glucose 97 POC Capillary Glucose 117 H 150 H Calcium 9.2 Phosphorus 3.5 Magnesium 2.1 Total Bilirubin 0.4 AST 180 H ALT 380 H Alkaline Phosphatase 62 Total Protein 5.9 L Albumin 3.2 L 04/26/25 04/26/25 07:29 11:47 WBC RBC Hgb Hct MCV MCH MCHC RDW Plt Count MPV Immature Gran % (Auto) Neut % (Auto) Lymph % (Auto) [place] % (Auto) Eos % (Auto) Baso % (Auto) Lymph # (Auto) [place] # (Auto) Eos # (Auto) Baso # (Auto) Abs Immat Gran (auto) Absolute Neuts (auto) Absolute Nucleated RBC Band Neutrophils % Nucleated RBC % Platelet Estimate Hypochromasia Anisocytosis Schistocytes Sodium Potassium Chloride Carbon Dioxide Anion Gap BUN Creatinine Estim Creat Clear Calc Estimated GFR Glucose POC Capillary Glucose 103 127 H Calcium Phosphorus Magnesium Total Bilirubin AST ALT Alkaline Phosphatase Total Protein Albumin
--- NOTE | 2025-04-26 16:32 | PCRCNOTE ---
Window of time for administration has passed. See next scheduled administration.
[2025-04-26] MEDS: PENTOXIFYLLINE 400 MG TABCR PO (17:27)
[2025-04-26] MEDS: TAMSULOSIN HCL 0.4 MG CAPSULE PO (20:27)
[2025-04-26] MEDS: MELATONIN 3 MG TABLET PO (20:28)
[2025-04-27] VITALS (38 sets, daily range): BP systolic 109–137; BP diastolic 46–67; PULSE 51–89; RESP 14–20; TEMP 36–36.8; O2SAT 94–100; BMI 29.1
--- NOTE | 2025-04-27 | ECHO_ITS ---
Patient Info Name: Sam Morrissey Age: 79 years : 1945 Gender: Male Ht: 67 in Wt: 186 lbs BSA: 2.02 m2 HR: 70 bpm BP: 111 / 50 mmHg Heart Rhythm: Sinus Rhythm Technical Quality: Good Exam Date: 04/27/2025 9:49 AM Patient Status: I Admit Date: 04/23/2025 Exam Type: CA echo dop color flow w con Complete two-dimensional, color flow and Doppler transthoracic echocardiogram is performed with contrast to opacify the left ventricle and to improve the deliniation of the left ventricle endocardial borders. Staff Referring Physician: Raoul Wahl MD Motor Vehicles Supervisor: Yanely Elias Attending Provider: Raoul Wahl MD Contrast/Agitated Saline Contrast/Ag. Saline: Definity Amount: 2.00 ml Administered By: Yanely Elias Existing IV Access: Yes IV Access Condition: patent with no signs of infiltration Summary 1. Left ventricular systolic function is normal, estimated at 60-65. 2. There is moderately increased left ventricular wall thickness. 3. Right ventricular chamber dimension is mildly enlarged. 4. Right ventricular systolic function is reduced. 5. Left atrial chamber dimension is mildly enlarged. 6. There is mild mitral valve stenosis. 7. There is mild mitral valve regurgitation. 8. There is mild mitral valve calcification. 9. There is mild tricuspid valve regurgitation. 10. Severe pulmonary hypertension, estimated pulmonary arterial systolic pressure is 71 mmHg. 11. There is mild pulmonic regurgitation. Left Ventricle Left ventricular chamber dimension is normal. Left ventricular systolic function is normal, estimated at 60-65. There is moderately increased left ventricular wall thickness. Left ventricular septal wall motion is normal. The left ventricular diastolic function is abnormal. Right Ventricle Right ventricular chamber dimension is mildly enlarged. Right ventricular systolic function is reduced. Left Atria Left atrial chamber dimension is mildly enlarged. Right Atria Right atrial chamber dimension is normal. Aortic Valve The aortic valve is probable trileaflet. There is no aortic valve sclerosis. There is no aortic valve stenosis. There is no aortic valve regurgitation. There is mild aortic valve calcification. Pulmonic Valve The pulmonic valve is normal. There is no pulmonic valve stenosis. There is mild pulmonic regurgitation. Mitral Valve The mitral valve has normal leaflets. There is mild mitral valve stenosis. There is mild mitral valve regurgitation. There is mild mitral valve calcification. Tricuspid Valve The tricuspid valve leaflets are normal. There is no significant tricuspid valve stenosis. There is mild tricuspid valve regurgitation. Severe pulmonary hypertension, estimated pulmonary arterial systolic pressure is 71 mmHg. Pericardium/Pleural The pericardium appears normal. There is no pericardial effusion. Inferior Vena Cava Dilated inferior vena cava with <50% collapse upon inspiration consistent with elevated right atrial pressure, 15 mmHg. Aorta The aortic root size at the sinus of Valsalva is normal. The prox ascending aorta size is normal. Left Ventricular Outflow Tract Name Value Normal LVOT 2D LVOT Diameter 2.0 cm LVOT Doppler LVOT Peak Velocity 75 cm/s LVOT Peak Gradient 2 mmHg LVOT Mean Gradient 1 mmHg LVOT VTI 18 cm LVOT VTI/AV VTI Ratio 0.5 LVOT Stroke Volume 53 ml LVOT CO 3.3 l/min LVOT CI 1.6 l/min/m2 Pulmonic Valve Name Value Normal RVOT Doppler RVOT Peak Velocity 89 cm/s RVOT Peak Gradient 3 mmHg PV Doppler PV Peak Velocity 118 cm/s PV Peak Gradient 6 mmHg Mitral Valve Name Value Normal MV Doppler MV Peak Gradient 18 mmHg MV Mean Gradient 5 mmHg MV Area (Cont Eq VTI) 1.2 cm2 MV Regurgitation Doppler MR Peak Gradient 103 mmHg MV Diastolic Function MV E Peak Velocity 180 cm/s MV A Peak Velocity 2 cm/s MV E/A 81.4 MV Decel Time (PW) 361 ms MV Annular TDI MV E/e' (Septal) 38.9 MV E/e' (Lateral) 45.2 MV E/e' (Average) 42.1 Tricuspid Valve Name Value Normal TV Regurgitation Doppler TR Peak Velocity 373 cm/s TR Peak Gradient 56 mmHg Estimated PAP/RSVP RA Pressure 15 mmHg <=5 PA Systolic Pressure 71 mmHg <36 RV Systolic Pressure 71 mmHg <36 TV Annular TDI TV Lateral Mayra s' Velocity 7.6 cm/s >=9.5 Aortic Valve Name Value Normal AV Doppler AV Peak Velocity 172 cm/s AV Peak Gradient 12 mmHg AV Mean Gradient 6 mmHg AV VTI 38 cm AV Area (Cont Eq VTI) 1.4 cm2 >=3.0 AV Area (Cont Eq Kedar) 1.3 cm2 AV DI (Kedar) 0.44 AV Regurgitation 2D LVOT Area 3.0 cm2 Ventricles Name Value Normal LV Dimensions 2D/MM IVS Diastolic Thickness (2D) 1.3 cm 0.6-1.0 LVID Diastole (2D) 4.5 cm 4.2-5.8 LVIW Diastolic Thickness (2D) 1.2 cm 0.6-1.0 LVID Systole (2D) 2.8 cm 2.5-4.0 LVOT Diameter 2.0 cm LV Mass (2D Cubed) 216.92 g 88.00-224.00 LV Mass Index (2D Cubed) 107 g/m2 49-115 Relative Wall Thickness (2D) 0.55 <=0.42 LV Fractional Shortening/Ejection Fraction 2D/MM LV Fractional Shortening (2D) 38 % 25-43 LV EF (2D Teichholz) 68 % LV Diastolic Volume (4C MOD) 52 ml LV EF (4C MOD) 74 % LV Diastolic Volume (2C MOD) 69 ml LV EF (2C MOD) 68 % LV Diastolic Volume (BP MOD) 60 ml 62-150 LV Diastolic Volume Index (BP MOD) 30 ml/m2 34-74 LV Systolic Volume (BP MOD) 17 ml 21-61 LV Systolic Volume Index (BP MOD) 8 ml/m2 11-31 LV EF (BP MOD) 72 % 52-72 LV Diastolic Length (4C) 7.0 cm LV Systolic Length (4C) 6.5 cm LV Stroke Volume (4C MOD) 38 ml Atria Name Value Normal LA Dimensions LA Volume (4C A-L) 108 ml LA Volume (BP A-L) 121 ml RA Dimensions RA Area (4C) 22.0 cm2 <=18.0 Report Signatures
--- NOTE | 2025-04-27 03:25 | PCRCNOTE ---
0200 neb tx omitted due to apnea study
[2025-04-27] MEDS: HYDROcodone/acetaminophen (*CRX) 5-325 MG TABLET 1 TAB PO (04:08)
[2025-04-27 06:26] LABS: Hematocrit 27.8 % (42.0-52.0); Hemoglobin 8.0 g/dL (14.0-18.0); Mean Corpuscular HGB Conc 28.8 g/dl (32-36); Mean Corpuscular Hemoglobin 25.6 pg (26-34); Mean Corpuscular Volume 89.1 fl (80-100); Platelet Count Result 246 k/mm3 (150-375); Red Blood Count 3.12 M/mm3 (4.6-6.20); White Blood Count 5.6 K/mm3 (4.5-10.0)
[2025-04-27 06:37] LABS: Ammonia < 9 umol/L (9-30)
[2025-04-27 06:38] LABS: Alanine Aminotransferase 308 U/L (6-50); Albumin Level 3.1 g/dL (3.5-5.1); Alkaline Phosphatase 59 U/L (38-126); Anion Gap 7 mmol/L (4-12); Aspartate Amino Transferase 96 U/L (17-59); Bilirubin,Total 0.3 mg/dL (0.2-1.3); Blood Urea Nitrogen 27 mg/dL (9-20); Calcium 9.0 mg/dL (8.4-10.2); Carbon Dioxide 29 mmol/L (22-30); Chloride 95 mmol/L (98-107); Estimated CRCL calculation 11 ml/min; Estimated Glomerular Filt Rate 11; Glucose 107 mg/dL (65-110); Potassium 4.0 mmol/L (3.4-5.0); Sodium 131 mmol/L (137-145); Total Protein 5.7 g/dL (6.3-8.2)
[2025-04-27 07:12] LABS: HAV RESULT Negative (Negative)
[2025-04-27] MEDS: GABAPENTIN 100 MG CAPSULE PO ×3 (08:55→20:57)
[2025-04-27] MEDS: traMADol HCL (*CRX) 50 MG TABLET PO ×2 (08:55→20:57)
[2025-04-27] MEDS: LORATADINE 10 MG TABLET PO (08:55)
[2025-04-27] MEDS: VITAMIN B COMPLEX CAPSULE 1 CAP PO (08:55)
[2025-04-27] MEDS: FINASTERIDE 5 MG TABLET PO (08:55)
[2025-04-27] MEDS: ASPIRIN 81 MG ENTERIC TABLET PO (08:55)
[2025-04-27] MEDS: FUROSEMIDE 80 MG TABLET PO ×2 (08:55→20:57)
[2025-04-27] MEDS: CINACALCET 30 MG TABLET 90 MG PO (08:55)
[2025-04-27] MEDS: SEVELAMER CARBONATE 800 MG TABLET PO ×3 (08:55→20:57)
--- NOTE | 2025-04-27 10:01 | P.PNNP_ITS ---
Progress Note: A&P Assessment and Plan (1) End stage renal disease: Code(s): N18.6 - End stage renal disease Status: Chronic Assessment and Plan: * HD tomorrow * continue T/T/S outpatient dialysis schedule while hospitalized * follow electrolytes, volume status, and clearance (2) Acute on chronic hypoxic respiratory failure: Code(s): J96.21 - Acute and chronic respiratory failure with hypoxia Status: Acute Assessment and Plan: * due to several issues: * pulmonary edema * bilateral pleural effusions * pneumonia (?) * chronic CHF * COPD * relative anemia * aggressive fluid removal/ultrafiltration with dialysis * plan dry ultrafiltration today * wean off supplemental oxygen as tolerated * follow respiratory status (3) Bacteremia: Code(s): R78.81 - Bacteremia Status: Acute Assessment and Plan: * blood culture with Staphylococcus capitis (1 set out of 2) * source?? -- real versus contamination?? * on vancomycin * follow repeat cultures (4) Transaminitis: Code(s): R74.01 - Elevation of levels of liver transaminase levels Status: Acute Assessment and Plan: * as noted by admission testing * due to CHF/pasive congestion of liver (?) * RUQ ultrasound today * follow trend of LFTs (5) Elevated troponin: Code(s): R79.89 - Other specified abnormal findings of blood chemistry Status: Acute Assessment and Plan: * as noted on admission * flat trend * suspect demand ischemia from acute illness * Cardiology following * Echo results (on 04/27) noted: * left ventricular systolic function is normal, estimated at 60-65% * right ventricular systolic function is reduced * mild mitral valve stenosis * mild mitral valve regurgitation * mild mitral valve calcification * mild tricuspid valve regurgitation * severe pulmonary hypertension, estimated pulmonary arterial systolic pressure is 71 mmHg * mild pulmonic regurgitation (6) Volume overload: Code(s): E87.70 - Fluid overload, unspecified Status: Acute Assessment and Plan: * as noted by admission imaging findings * fluid/ultrafiltration with dialysis to maintain euvolemia * in the past, this has been complicated by his COPD/reactive airway disease + CARITO (7) Anemia: Code(s): D64.9 - Anemia, unspecified Status: Chronic Assessment and Plan: * due to ESRD * possibly worsened by previous GI bleed issues * Epogen with HD * PRBC transfusion per protocol * anticoagulation on hold * follow trend of H/H (8) Atrial fibrillation: Code(s): I48.91 - Unspecified atrial fibrillation Status: Chronic Assessment and Plan: * rate control strategy * Cardiology recommendations noted * anticoagulation on hold (9) Essential (primary) hypertension: Code(s): I10 - Essential (primary) hypertension Status: Chronic Assessment and Plan: * reasonable control * follow trend of hemodynamics (10) Chronic obstructive pulmonary disease: Code(s): J44.9 - Chronic obstructive pulmonary disease, unspecified Status: Chronic Assessment and Plan: * continue home inhalers * nebulizer treatments PRN (11) Obstructive sleep apnea: Code(s): G47.33 - Obstructive sleep apnea (adult) (pediatric) Status: Chronic Assessment and Plan: * BiPAP at night/sleep and with naps * appears to be tolerating fairly well (12) IDDM (insulin dependent diabetes mellitus): Status: Chronic Assessment and Plan: * follow accu-cheks * glycemic control per hospitalist Will continue to follow. L Subjective Date/time seen: 04/27/25 10:01 Interval history: Follow-up for end stage renal disease on hemodialysis. No apparent distress noted at the time of my visit; denies any acute shortness of breath but admits to a productive cough of white/suazo sputum; tolerating BiPAP therapy at night and with sleep during the day; no other acute complaints voiced. Exam 2 Narrative: General: elderly WD/WN male in NAD Heart: IRRR, normal S1 and S2; no rub Lungs: coarse breath sounds; decreased at bases Abdomen: soft, nontender, nondistended, positive bowel sounds Extremities: no cyanosis or clubbing; trace edema Skin: no nodules Objective Data Vital Signs Vital Signs: Vital Signs Temp Pulse Resp BP Pulse Ox O2 Del Method O2 Flow Rate 04/28/25 10:45 63 123/58 L 04/28/25 10:30 62 117/54 L 04/28/25 10:15 70 108/54 L 04/28/25 10:00 74 111/49 L 04/28/25 09:45 75 109/55 L 04/28/25 09:30 66 103/47 L 04/28/25 09:15 64 97/57 L 04/28/25 09:00 75 101/51 L 04/28/25 08:45 63 108/54 L 04/28/25 08:38 70 102/55 L 04/28/25 08:38 3 04/28/25 08:23 98.1 F 64 16 106/54 L 100 04/28/25 07:33 98.3 F 60 20 101/48 L 95 04/28/25 06:00 67 04/28/25 04:00 68 04/28/25 04:00 99 BiPAP 04/28/25 04:00 97.5 F L 67 16 104/51 L 99 04/28/25 02:21 70 16 04/28/25 02:10 63 15 98 BiPAP 04/28/25 02:07 70 16 04/28/25 02:00 65 04/28/25 00:00 97.8 F 65 20 109/88 100 04/28/25 00:00 62 04/28/25 00:00 100 BiPAP 04/27/25 22:49 58 L 14 94 BiPAP 04/27/25 22:00 61 04/27/25 20:57 67 04/27/25 20:27 70 16 04/27/25 20:18 71 18 100 Nasal Cannula 3 04/27/25 20:16 70 16 04/27/25 20:00 71 04/27/25 20:00 100 Nasal Cannula 3 04/27/25 20:00 97.5 F L 66 16 115/67 96 04/27/25 19:30 97.6 F 70 17 120/59 L 99 04/27/25 19:10 68 118/57 L 04/27/25 19:00 61 119/57 L 04/27/25 18:45 64 123/61 04/27/25 18:30 70 112/58 L 04/27/25 18:15 70 125/65 04/27/25 18:00 72 04/27/25 18:00 67 118/54 L 04/27/25 17:45 60 111/55 L 04/27/25 17:30 61 109/59 L 04/27/25 17:15 62 119/60 04/27/25 17:00 62 127/58 L 04/27/25 16:45 68 137/62 04/27/25 16:30 65 116/59 L 04/27/25 16:15 64 130/59 L 04/27/25 16:00 100 Nasal Cannula 3 04/27/25 16:00 70 04/27/25 16:00 64 123/56 L 04/27/25 15:50 3 04/27/25 15:50 98 F 64 17 125/64 98 04/27/25 14:23 Nasal Cannula 3 04/27/25 14:00 63 04/27/25 13:59 70 16 04/27/25 13:50 67 16 04/27/25 12:16 97.5 F L 89 20 122/61 100 04/27/25 12:00 100 Nasal Cannula 3 04/27/25 12:00 76 Intake/Output Intake/Output: Intake & Output 04/24/25 04/25/25 04/26/25 04/27/25 23:59 23:59 23:59 23:59 Intake Total 960 1070 1000 50 Output Total 5700 Balance 960 -4630 1000 50 Meds/Results Medications: Active Medications Generic Name Dose Route Start Last Admin Trade Name Freq PRN Reason Stop Dose Admin Acetaminophen 650 mg 04/23/25 13:39 04/25/25 19:59 Acetaminophen 325 Mg Tablet PO 650 mg Q4H PRN Administration Mild Pain (1-3) Or Fever Hydrocodone Bitart/Acetaminophen 1 tab 04/25/25 20:28 04/27/25 04:08 Hydrocodone/Acetaminophen (*Crx) 5-325 Mg Tablet PO 1 tab Q4H PRN Administration Pain Rated 4-6 Aspirin 81 mg 04/24/25 09:00 04/27/25 08:55 Aspirin 81 Mg Enteric Tablet PO 81 mg DAILY DAVID Administration Atorvastatin Calcium 20 mg 04/23/25 21:00 04/25/25 19:58 Atorvastatin 20 Mg Tablet PO 20 mg HS DAVID Administration Carvedilol 25 mg 04/23/25 21:00 04/27/25 08:55 Carvedilol 25 Mg Tablet PO 25 mg Q12HR DAIVD Administration Cinacalcet 90 mg 04/24/25 09:00 04/27/25 08:55 Cinacalcet 30 Mg Tablet PO 90 mg DAILY DAVID Administration Dextrose 12.5 gm 04/23/25 13:42 Dextrose 50% 25 Gm/50 Ml Syringe IV PUSH PRN PRN Hypoglycemia Protocol Epoetin David-epbx 10,000 units 04/27/25 13:00 Epoetin David-Epbx 10,000 Units/Ml Vial IV PUSH 04/27/25 13:01 ONCE ONE Finasteride 5 mg 04/24/25 09:00 04/27/25 08:55 Finasteride 5 Mg Tablet PO 5 mg QAM DAVID Administration Furosemide 80 mg 04/23/25 17:00 04/27/25 08:55 Furosemide 80 Mg Tablet PO 80 mg BID DAVID Administration Gabapentin 100 mg 04/23/25 17:00 04/27/25 12:14 Gabapentin 100 Mg Capsule PO 100 mg TID DAVID Administration Glucagon 1 mg 04/23/25 13:42 Glucagon For Inj 1 Mg Vial IM PRN PRN Hypoglycemia Protocol Glucose 15 gm 04/23/25 13:42 Glucose Oral Gel 15 Gm Of Glucse In 37.5 Gm Tube PO PRN PRN Hypoglycemia Protocol Albumin Human 50 mls @ 999 mls/hr 04/23/25 10:08 Albutein IVPB 05/23/25 10:07 Q10M PRN HYPOTENSION Dextrose 1,000 mls @ 100 mls/hr 04/23/25 13:42 Dextrose 5% 1,000 Ml IVPB PRN PRN Hypoglycemia Protocol Insulin Aspart 3 - 6 units 04/23/25 17:00 04/27/25 12:13 Insulin Aspart (*Bkc) 100 Units/Ml SUB-Q Not Given TIDWM DAVID Protocol Insulin Aspart 1 - 3 units 04/23/25 21:00 04/26/25 21:46 Insulin Aspart (*Bkc) 100 Units/Ml SUB-Q Not Given HS DAVID Protocol Levalbuterol HCl 0.63 mg 04/23/25 14:00 04/27/25 08:19 Levalbuterol Neb 1.25 Mg/3 Ml INHALATION 0.63 mg Q6HRT DAVID Administration Loratadine 10 mg 04/24/25 09:00 04/27/25 08:55 Loratadine 10 Mg Tablet PO 10 mg DAILY DAVID Administration Magnesium Citrate 296 ml 04/23/25 13:39 Magnesium Citrate 300 Ml Btl PO QAM PRN constipation Magnesium Hydroxide 30 ml 04/23/25 13:39 Magnesium Hydroxide Susp 30 Ml Udc PO HS PRN constipation Melatonin 3 mg 04/23/25 21:00 04/26/25 20:28 Melatonin 3 Mg Tablet PO 3 mg HS DAVID Administration Ondansetron HCl 4 mg 04/23/25 08:04 Ondansetron Inj 4 Mg/2 Ml Vial IV PUSH Q4H PRN Nausea Pentoxifylline 400 mg 04/23/25 18:00 04/26/25 17:27 Pentoxifylline 400 Mg Tabcr PO 400 mg QPM DAVID Administration Perflutren Lipid Microsphere 0 ml 04/25/25 17:49 Perflutren Lipid Microspheres 1.5 Ml Vial Diluted To 10 Ml Total Volume IV PUSH 04/28/25 17:49 ONCE PRN adequate visualization Protocol Sevelamer Carbonate 800 mg 04/23/25 19:20 04/27/25 12:14 Sevelamer Carbonate 800 Mg Tablet PO 800 mg TIDWM DAVID Administration Tamsulosin HCl 0.4 mg 04/23/25 21:00 04/26/25 20:27 Tamsulosin Hcl 0.4 Mg Capsule PO 0.4 mg QHS DAVID Administration Tramadol HCl 50 mg 04/23/25 17:00 04/27/25 08:55 Tramadol Hcl (*Crx) 50 Mg Tablet PO 50 mg BID DAVID Administration Umeclidinium [place] 1 puff 04/24/25 09:00 04/26/25 09:39 Umeclidinium [place] 62.5 Mcg Ellipta INHALATION 1 puff DAILY DAVID Administration Vitamin B Complex 1 cap 04/24/25 09:00 04/27/25 08:55 Vitamin B Complex Capsule PO 1 cap DAILY DAVID Administration Radiology Results: ITS Impressions Chest/Abdomen/Pelvis CT 04/23/25 07:40 Impression: Moderate bilateral pleural effusions with mild pulmonary edema and bibasilar atelectatic change. Small gallstone. Splenomegaly, uncertain etiology. Mild gallbladder wall thickening is nonspecific, probably most likely related to the presence of ascites. If there is concern for acute cholecystitis, consider HIDA scan. Marked prostatomegaly. Chest X-Ray 04/24/25 16:32 IMPRESSION: Bilateral pneumonia with possible underlying pulmonary edema. Changes are slightly increased compared to previous study. Labs Labs: Laboratory Tests 04/27/25 06:18 04/27/25 06:18 Calcium 9.0 Total Bilirubin 0.3 AST 96 H ALT 308 H Alkaline Phosphatase 59 Ammonia < 9 L Total Protein 5.7 L Albumin 3.1 L Hepatitis A IgM Ab Negative Hep B Core Total Ab Pending Hepatitis C Ab Screen Negative
[2025-04-27] MEDS: PERFLUTREN LIPID MICROSPHERES 1.5 ML VIAL DILUTED TO 10 ML TOTAL VOLUME IV PUSH (10:18)
--- NOTE | 2025-04-27 13:24 | IVDEFINITY ---
Prior to administration of IV Definity the patient was educated on the risks and benefits of the imaging enhancing agent including potential adverse side effects. The patient verbalized understanding. Allergies were verified. No exclusion criteria were identified and at least one of the following inclusion criteria were met: 1) physician request, 2) patient technically difficult to image (per the [place] [employer] guidelines of two or more segments not discernable within the apical view), or 3) questionable left ventricular function. ?
--- NOTE | 2025-04-27 13:30 | PM.PNCARD ---
Progress Note: A&P Assessment and Plan (1) Atrial fibrillation with controlled ventricular rate: Code(s): I48.91 - Unspecified atrial fibrillation Status: Acute Plan Elevated troponin mostly flat and without chest pain-most likely due to demand ischemia Atrial fibrillation-currently rate controlled Chronic hypoxemic respiratory failure Bacteremia- 1 of 2 bottles from 04/23/2025 growing Staphylococcus capitis Acute on chronic diastolic heart failure-LVEF 60-65% in 10/2024 Moderate TR and mild pulmonary hypertension by echo in 10/2024 End-stage renal disease on hemodialysis Diabetes mellitus type 2 Plan: Hold anticoagulation until further evaluation for risk of bleeding Continue aspirin, statin, Coreg Check and replace electrolytes to keep potassium greater than 4 and magnesium greater than 2 TTE Recommend stress test for evaluation of coronaries after patient recovers from acute illness Management of fluid overload and volume status per Nephrology Subjective Date/time seen: 04/27/25 13:30 Interval history: Reason for encounter: Elevated troponin Interval history: No chest pain, shortness of is Review of Systems Cardiovascular: Comments: As mentioned in HPI Respiratory: Comments: As mentioned in HPI Exam Narrative: General: Alert oriented x3, no acute distress Neck: Supple, no JVD Chest: Bibasilar crackles present, decreased breath sounds at both lung bases, no rhonchi Cardiac: S1, S2 +, regular rate, regular rhythm, no murmurs or rubs Extremities: No pedal edema, no skin rash Neurologic: Alert and oriented x3, no focal neurological deficits Objective Data Vital Signs Vital Signs: Vital Signs - 24 hr 04/26/25 14:00 04/26/25 15:57 04/26/25 16:00 Temperature 36.9 C Pulse Rate 69 71 66 Respiratory Rate 18 18 Blood Pressure 104/52 L Pulse Oximetry 97 96 Oxygen Delivery Nasal Cannula Oxygen Flow Rate 3 04/26/25 16:00 04/26/25 18:00 04/26/25 19:43 Temperature 36.7 C Pulse Rate 65 70 71 Respiratory Rate 18 Blood Pressure 113/47 L Pulse Oximetry 97 Oxygen Delivery Oxygen Flow Rate 04/26/25 20:00 04/26/25 20:00 04/26/25 20:15 Temperature Pulse Rate 70 63 Respiratory Rate 20 Blood Pressure Pulse Oximetry 97 97 Oxygen Delivery Nasal Cannula Nasal Cannula Oxygen Flow Rate 3 3 04/26/25 20:28 04/26/25 21:04 04/26/25 21:06 Temperature Pulse Rate 69 68 Respiratory Rate 16 Blood Pressure Pulse Oximetry 97 Oxygen Delivery Nasal Cannula Oxygen Flow Rate 3 04/26/25 21:16 04/26/25 21:18 04/26/25 22:00 Temperature Pulse Rate 65 65 64 Respiratory Rate 16 18 Blood Pressure Pulse Oximetry 97 Oxygen Delivery BiPAP Oxygen Flow Rate 04/26/25 23:16 04/26/25 23:48 04/27/25 00:00 Temperature 36.8 C Pulse Rate 64 66 63 Respiratory Rate 14 20 Blood Pressure 109/53 L Pulse Oximetry 98 99 Oxygen Delivery Nasal Cannula Oxygen Flow Rate 3 04/27/25 02:00 04/27/25 04:00 04/27/25 04:00 Temperature 36.8 C Pulse Rate 68 69 72 Respiratory Rate 14 Blood Pressure 111/50 L Pulse Oximetry 99 100 Oxygen Delivery Nasal Cannula Oxygen Flow Rate 3 04/27/25 04:00 04/27/25 06:00 04/27/25 07:53 Temperature 36.4 C L Pulse Rate 66 70 51 L Respiratory Rate 16 Blood Pressure 110/46 L Pulse Oximetry 96 Oxygen Delivery Oxygen Flow Rate 04/27/25 08:00 04/27/25 08:00 04/27/25 08:20 Temperature Pulse Rate 69 64 68 Respiratory Rate 16 Blood Pressure Pulse Oximetry 99 Oxygen Delivery Nasal Cannula Oxygen Flow Rate 3 04/27/25 08:21 04/27/25 08:30 04/27/25 10:00 Temperature Pulse Rate 70 67 Respiratory Rate 16 Blood Pressure Pulse Oximetry 98 Oxygen Delivery Nasal Cannula Oxygen Flow Rate 3 04/27/25 12:00 04/27/25 12:00 04/27/25 12:16 Temperature 36.4 C L Pulse Rate 76 89 Respiratory Rate 20 Blood Pressure 122/61 Pulse Oximetry 100 100 Oxygen Delivery Nasal Cannula Oxygen Flow Rate 3 Intake/Output Intake/Output: Intake & Output 04/24/25 04/25/25 04/26/25 04/27/25 23:59 23:59 23:59 23:59 Intake Total 960 1070 1000 50 Output Total 5700 Balance 960 -4630 1000 50 Meds/Results Medications: Active Medications Generic Name Dose Route Start Last Admin Trade Name Freq PRN Reason Stop Dose Admin Acetaminophen 650 mg 04/23/25 13:39 04/25/25 19:59 Acetaminophen 325 Mg Tablet PO 650 mg Q4H PRN Administration Mild Pain (1-3) Or Fever Hydrocodone Bitart/Acetaminophen 1 tab 04/25/25 20:28 04/27/25 04:08 Hydrocodone/Acetaminophen (*Crx) 5-325 Mg Tablet PO 1 tab Q4H PRN Administration Pain Rated 4-6 Aspirin 81 mg 04/24/25 09:00 04/27/25 08:55 Aspirin 81 Mg Enteric Tablet PO 81 mg DAILY DAVID Administration Atorvastatin Calcium 20 mg 04/23/25 21:00 04/25/25 19:58 Atorvastatin 20 Mg Tablet PO 20 mg HS DAVID Administration Carvedilol 25 mg 04/23/25 21:00 04/27/25 08:55 Carvedilol 25 Mg Tablet PO 25 mg Q12HR DAVID Administration Cinacalcet 90 mg 04/24/25 09:00 04/27/25 08:55 Cinacalcet 30 Mg Tablet PO 90 mg DAILY DAVID Administration Dextrose 12.5 gm 04/23/25 13:42 Dextrose 50% 25 Gm/50 Ml Syringe IV PUSH PRN PRN Hypoglycemia Protocol Finasteride 5 mg 04/24/25 09:00 04/27/25 08:55 Finasteride 5 Mg Tablet PO 5 mg QAM DAVID Administration Furosemide 80 mg 04/23/25 17:00 04/27/25 08:55 Furosemide 80 Mg Tablet PO 80 mg BID DAVID Administration Gabapentin 100 mg 04/23/25 17:00 04/27/25 12:14 Gabapentin 100 Mg Capsule PO 100 mg TID DAVID Administration Glucagon 1 mg 04/23/25 13:42 Glucagon For Inj 1 Mg Vial IM PRN PRN Hypoglycemia Protocol Glucose 15 gm 04/23/25 13:42 Glucose Oral Gel 15 Gm Of Glucse In 37.5 Gm Tube PO PRN PRN Hypoglycemia Protocol Albumin Human 50 mls @ 999 mls/hr 04/23/25 10:08 Albutein IVPB 05/23/25 10:07 Q10M PRN HYPOTENSION Dextrose 1,000 mls @ 100 mls/hr 04/23/25 13:42 Dextrose 5% 1,000 Ml IVPB PRN PRN Hypoglycemia Protocol Insulin Aspart 3 - 6 units 04/23/25 17:00 04/27/25 12:13 Insulin Aspart (*Bkc) 100 Units/Ml SUB-Q Not Given TIDWM DAVID Protocol Insulin Aspart 1 - 3 units 04/23/25 21:00 04/26/25 21:46 Insulin Aspart (*Bkc) 100 Units/Ml SUB-Q Not Given HS [facility] Protocol Levalbuterol HCl 0.63 mg 04/23/25 14:00 04/27/25 08:19 Levalbuterol Neb 1.25 Mg/3 Ml INHALATION 0.63 mg Q6HRT DAVID Administration Loratadine 10 mg 04/24/25 09:00 04/27/25 08:55 Loratadine 10 Mg Tablet PO 10 mg DAILY DAVID Administration Magnesium Citrate 296 ml 04/23/25 13:39 Magnesium Citrate 300 Ml Btl PO QAM PRN constipation Magnesium Hydroxide 30 ml 04/23/25 13:39 Magnesium Hydroxide Susp 30 Ml Udc PO HS PRN constipation Melatonin 3 mg 04/23/25 21:00 04/26/25 20:28 Melatonin 3 Mg Tablet PO 3 mg HS DAVID Administration Ondansetron HCl 4 mg 04/23/25 08:04 Ondansetron Inj 4 Mg/2 Ml Vial IV PUSH Q4H PRN Nausea Pentoxifylline 400 mg 04/23/25 18:00 04/26/25 17:27 Pentoxifylline 400 Mg Tabcr PO 400 mg QPM DAVID Administration Sevelamer Carbonate 800 mg 04/23/25 19:20 04/27/25 12:14 Sevelamer Carbonate 800 Mg Tablet PO 800 mg TIDWM DAVID Administration Tamsulosin HCl 0.4 mg 04/23/25 21:00 04/26/25 20:27 Tamsulosin Hcl 0.4 Mg Capsule PO 0.4 mg QHS DAVID Administration Tramadol HCl 50 mg 04/23/25 17:00 04/27/25 08:55 Tramadol Hcl (*Crx) 50 Mg Tablet PO 50 mg BID DAVID Administration Umeclidinium [place] 1 puff 04/24/25 09:00 04/26/25 09:39 Umeclidinium [place] 62.5 Mcg Ellipta INHALATION 1 puff DAILY DAVID Administration Vitamin B Complex 1 cap 04/24/25 09:00 04/27/25 08:55 Vitamin B Complex Capsule PO 1 cap DAILY DAVID Administration Radiology Results: ITS Impressions Chest/Abdomen/Pelvis CT 04/23/25 07:40 Impression: Moderate bilateral pleural effusions with mild pulmonary edema and bibasilar atelectatic change. Small gallstone. Splenomegaly, uncertain etiology. Mild gallbladder wall thickening is nonspecific, probably most likely related to the presence of ascites. If there is concern for acute cholecystitis, consider HIDA scan. Marked prostatomegaly. Chest X-Ray 04/24/25 16:32 IMPRESSION: Bilateral pneumonia with possible underlying pulmonary edema. Changes are slightly increased compared to previous study. Labs Labs: Laboratory Results - last 24 hr 04/26/25 04/26/25 04/27/25 16:04 21:40 06:18 WBC 5.6 RBC 3.12 L Hgb 8.0 L Hct 27.8 L MCV 89.1 MCH 25.6 L MCHC 28.8 L RDW 17.9 H Plt Count 246 MPV 9.6 Sodium 131 L Potassium 4.0 Chloride 95 L Carbon Dioxide 29 Anion Gap 7 BUN 27 H Creatinine 5.03 H Estim Creat Clear Calc 11 Estimated GFR 11 L Glucose 107 POC Capillary Glucose 119 H 179 H Calcium 9.0 Total Bilirubin 0.3 AST 96 H ALT 308 H Alkaline Phosphatase 59 Ammonia < 9 L Total Protein 5.7 L Albumin 3.1 L Hepatitis A IgM Ab Negative Hepatitis C Ab Screen Negative 04/27/25 04/27/25 07:45 12:00 WBC RBC Hgb Hct MCV MCH MCHC RDW Plt Count MPV Sodium Potassium Chloride Carbon Dioxide Anion Gap BUN Creatinine Estim Creat Clear Calc Estimated GFR Glucose POC Capillary Glucose 97 84 Calcium Total Bilirubin AST ALT Alkaline Phosphatase Ammonia Total Protein Albumin Hepatitis A IgM Ab Hepatitis C Ab Screen
[2025-04-27] MEDS: EPOETIN ALFA-EPBX 10,000 UNITS/ML VIAL 10000 UNITS IV PUSH (16:15)
--- NOTE | 2025-04-27 18:38 | P.PNIM_ITS ---
Progress Note: A&P Assessment and Plan (1) Acute respiratory failure: Code(s): J96.00 - Acute respiratory failure, unspecified whether with hypoxia or hypercapnia Status: Acute (2) Bacteremia: Code(s): R78.81 - Bacteremia Status: Acute (3) Acute exacerbation of CHF (congestive heart failure): Qualifiers: Heart failure type: unspecified Qualified Code(s): I50.9 - Heart failure, unspecified Code(s): I50.9 - Heart failure, unspecified Status: Acute (4) Bilateral pleural effusion: Code(s): J90 - Pleural effusion, not elsewhere classified Status: Acute (5) Non-ST elevation SD (NSTEMI): Code(s): I21.4 - Non-ST elevation (NSTEMI) myocardial infarction Status: Acute (6) Atrial fibrillation with controlled ventricular rate: Code(s): I48.91 - Unspecified atrial fibrillation Status: Acute (7) ESRD on dialysis: Code(s): N18.6 - End stage renal disease; Z99.2 - Dependence on renal dialysis Status: Acute (8) Transaminitis: Code(s): R74.01 - Elevation of levels of liver transaminase levels Status: Acute (9) Normocytic anemia: Code(s): D64.9 - Anemia, unspecified Status: Acute (10) AVM (arteriovenous malformation) of colon, acquired with hemorrhage: Code(s): K55.21 - Angiodysplasia of colon with hemorrhage Status: Acute (11) Insulin dependent type 2 diabetes mellitus: Onset Date: ~2009 Code(s): E11.9 - Type 2 diabetes mellitus without complications; Z79.4 - bed bug exterminator (current) use of insulin Status: Acute (12) Chronic obstructive pulmonary disease: Code(s): J44.9 - Chronic obstructive pulmonary disease, unspecified Status: Chronic (13) Frequent falls: Code(s): R29.6 - Repeated falls Status: Acute (14) Enlarged prostate: Code(s): N40.0 - Benign prostatic hyperplasia without lower urinary tract symptoms Status: Acute (15) Pressure ulcer of left heel, unstageable: Code(s): L89.620 - Pressure ulcer of left heel, unstageable Status: Acute (16) Seizure disorder: Code(s): G40.909 - Epilepsy, unspecified, not intractable, without status epilepticus Status: Acute (17) Pulmonary hypertension: Code(s): I27.20 - Pulmonary hypertension, unspecified Status: Acute Plan Acute resp failure Weakness in setting of ESRD and hyperkalemia. BCx positive for Staph capitis in anaerobic bottle. Probably a contaminate. CT Chest showing moderate bilateral pleural effusions and pulmonary edema. Suspect patient with fluid overload resulting in his acute hypoxic resp failure. Less likely PNA. Echo showing EF 60-65% with diastolic dysfunction, RV systolic function reduced, mild valvular disease and severe pulm HTN. Eleva he has acute on chronic diastolic CHF. Hx of mild CO2 retention. Weaned to 3L now. Continue BiPAP during the day as needed and continue at night. Nephrology on board. PT/OT ordered. Use HD to control fluid status. Plan dry ultrafiltration today; continue HD T//Sat Elevated Trop related to demand ischemia. He denies chest pain. Cardiology following and appreciate their input. Continue ASA, and Coreg. Lipitor on hold. Stress test recommended. Transaminitis - etiology unclear. Acetaminophen <10. CT Abd showing mild GB wall thickening and small GS. Viral Hepatitis serologies negative. RUQ US showing mural thickening, edema and hyperemia within the wall of the gallbladder with multiple adherent stones for which acute cholecystitis is suspected. No significant RUQ pain. AST/ALT better today. Holding Lipitor. General Surgery consult ESRD on HD T/T/S - HD per nephrology. HD 7/3 with 3L removed and 7/5 with 4L removed. Dry UF today and HD tomorrow. Hyperkalemia - potassium was 5.1 but better after HD. Follow pleural effusions - related to fluid overload and dCHF. Dialysis to control fluid status. Chronic anemia - Hgb mostly in the 9-10 range but dropped to 7-8 range last month. Hgb on admission 8.8. Receiving Epoetin Transfuse if HB<[address] Showed marked prostatomegaly. Continue Flomax and Proscar Follow with PCP/Urology as outpatient PAF Eliguis on hold. Resume when okay with Cardiology Rate controlled CARITO Patient has hx of CARITO but does wear CPAP at home. Contineu CPAP at night and with naps History of GI bleeding Recent EGD and colonoscopy showed AVM. Eliquis held continue to monitor HLD - Holding statin. Monitor LFTs HTN Patient's blood pressure was reviewed on 04/27 Blood pressure well controlled. Will continue to monitor. DM2 The patient's blood glucose was reviewed on 04/27 Glucose remains well controlled. Continue AccuCheks covering with sliding scale. Hypoglycemia protocol available as needed. Continue to monitor COPD - Stable. No wheezing. Continue Incruse inhaler and Xopenex. DVT Prophylaxis - SCD; Eliquis on hold per Cardiology Code status - Full Disp - PT/OT Subjective Date/time seen: 04/27/25 18:38 Interval history: 79yo male with COPD, DM2,HTN, pAFib on chronic anticoagulation with Eliquis, PAD, CARITO, and ESRD on dialysis T/Th/Sat comes in from retirement for weakness and pain all over. No nausea. No CP or SOB. He states now that he wears CPAP at home. COugh productive of erickson sputum. Exam Narrative: AF 98.0 125/65 70 17 100% 3L Gen - NARD Chest - decreased BS left base. right clear. CV - irregularS1/S2. Tele showing AFib with controlled rate Abd - Soft, NT/ND, Positive BS Ext - No pedal edema. Left upper arm fistula thrill and bruit Psych - Nml mood and affect Skin - Warm and dry. right griffin with dried, dark eschar. Right heel dressing clean and dry Objective Data Vital Signs Vital Signs: Vital Signs - 24 hr 04/26/25 19:43 04/26/25 20:00 04/26/25 20:00 Temperature 98.1 F Pulse Rate 71 70 63 Respiratory Rate 18 20 Blood Pressure 113/47 L Pulse Oximetry 97 97 Oxygen Delivery Nasal Cannula Oxygen Flow Rate 3 04/26/25 20:15 04/26/25 20:28 04/26/25 21:04 Temperature Pulse Rate 69 Respiratory Rate Blood Pressure Pulse Oximetry 97 97 Oxygen Delivery Nasal Cannula Nasal Cannula Oxygen Flow Rate 3 3 04/26/25 21:06 04/26/25 21:16 04/26/25 21:18 Temperature Pulse Rate 68 65 65 Respiratory Rate 16 16 18 Blood Pressure Pulse Oximetry 97 Oxygen Delivery BiPAP Oxygen Flow Rate 04/26/25 22:00 04/26/25 23:16 04/26/25 23:48 Temperature 98.3 F Pulse Rate 64 64 66 Respiratory Rate 14 20 Blood Pressure 109/53 L Pulse Oximetry 98 99 Oxygen Delivery Nasal Cannula Oxygen Flow Rate 3 04/27/25 00:00 04/27/25 02:00 04/27/25 04:00 Temperature Pulse Rate 63 68 69 Respiratory Rate Blood Pressure Pulse Oximetry 99 Oxygen Delivery Nasal Cannula Oxygen Flow Rate 3 04/27/25 04:00 04/27/25 04:00 04/27/25 06:00 Temperature 98.2 F Pulse Rate 72 66 70 Respiratory Rate 14 Blood Pressure 111/50 L Pulse Oximetry 100 Oxygen Delivery Oxygen Flow Rate 04/27/25 07:53 04/27/25 08:00 04/27/25 08:00 Temperature 97.5 F L Pulse Rate 51 L 69 64 Respiratory Rate 16 Blood Pressure 110/46 L Pulse Oximetry 96 99 Oxygen Delivery Nasal Cannula Oxygen Flow Rate 3 04/27/25 08:20 04/27/25 08:21 04/27/25 08:30 Temperature Pulse Rate 68 70 Respiratory Rate 16 16 Blood Pressure Pulse Oximetry 98 Oxygen Delivery Nasal Cannula Oxygen Flow Rate 3 04/27/25 10:00 04/27/25 12:00 04/27/25 12:00 Temperature Pulse Rate 67 76 Respiratory Rate Blood Pressure Pulse Oximetry 100 Oxygen Delivery Nasal Cannula Oxygen Flow Rate 3 04/27/25 12:16 04/27/25 13:50 04/27/25 13:59 Temperature 97.5 F L Pulse Rate 89 67 70 Respiratory Rate 20 16 16 Blood Pressure 122/61 Pulse Oximetry 100 Oxygen Delivery Oxygen Flow Rate 04/27/25 14:00 04/27/25 14:23 04/27/25 15:50 Temperature 98 F Pulse Rate 63 64 Respiratory Rate 17 Blood Pressure 125/64 Pulse Oximetry 98 Oxygen Delivery Nasal Cannula Oxygen Flow Rate 3 04/27/25 15:50 04/27/25 16:00 04/27/25 16:00 Temperature Pulse Rate 64 70 Respiratory Rate Blood Pressure 123/56 L Pulse Oximetry Oxygen Delivery Oxygen Flow Rate 3 04/27/25 16:00 04/27/25 16:15 04/27/25 16:30 Temperature Pulse Rate 64 65 Respiratory Rate Blood Pressure 130/59 L 116/59 L Pulse Oximetry 100 Oxygen Delivery Nasal Cannula Oxygen Flow Rate 3 04/27/25 16:45 04/27/25 17:00 04/27/25 17:15 Temperature Pulse Rate 68 62 62 Respiratory Rate Blood Pressure 137/62 127/58 L 119/60 Pulse Oximetry Oxygen Delivery Oxygen Flow Rate 04/27/25 17:30 04/27/25 17:45 04/27/25 18:00 Temperature Pulse Rate 61 60 67 Respiratory Rate Blood Pressure 109/59 L 111/55 L 118/54 L Pulse Oximetry Oxygen Delivery Oxygen Flow Rate 04/27/25 18:00 04/27/25 18:15 Temperature Pulse Rate 72 70 Respiratory Rate Blood Pressure 125/65 Pulse Oximetry Oxygen Delivery Oxygen Flow Rate Intake/Output Intake/Output: Intake & Output 04/24/25 04/25/25 04/26/25 04/27/25 23:59 23:59 23:59 23:59 Intake Total 960 1070 1000 150 Output Total 5700 Balance 960 -4630 1000 150 Meds/Results Medications: Active Medications Generic Name Dose Route Start Last Admin Trade Name Freq PRN Reason Stop Dose Admin Acetaminophen 650 mg 04/23/25 13:39 04/25/25 19:59 Acetaminophen 325 Mg Tablet PO 650 mg Q4H PRN Administration Mild Pain (1-3) Or Fever Hydrocodone Bitart/Acetaminophen 1 tab 04/25/25 20:28 04/27/25 04:08 Hydrocodone/Acetaminophen (*Crx) 5-325 Mg Tablet PO 1 tab Q4H PRN Administration Pain Rated 4-6 Aspirin 81 mg 04/24/25 09:00 04/27/25 08:55 Aspirin 81 Mg Enteric Tablet PO 81 mg DAILY DAVID Administration Atorvastatin Calcium 20 mg 04/23/25 21:00 04/25/25 19:58 Atorvastatin 20 Mg Tablet PO 20 mg HS DAVID Administration Carvedilol 25 mg 04/23/25 21:00 04/27/25 08:55 Carvedilol 25 Mg Tablet PO 25 mg Q12HR DAVID Administration Cinacalcet 90 mg 04/24/25 09:00 04/27/25 08:55 Cinacalcet 30 Mg Tablet PO 90 mg DAILY DAVID Administration Dextrose 12.5 gm 04/23/25 13:42 Dextrose 50% 25 Gm/50 Ml Syringe IV PUSH PRN PRN Hypoglycemia Protocol Finasteride 5 mg 04/24/25 09:00 04/27/25 08:55 Finasteride 5 Mg Tablet PO 5 mg QAM DAVID Administration Furosemide 80 mg 04/23/25 17:00 04/27/25 08:55 Furosemide 80 Mg Tablet PO 80 mg BID DAVID Administration Gabapentin 100 mg 04/23/25 17:00 04/27/25 12:14 Gabapentin 100 Mg Capsule PO 100 mg TID DAVID Administration Glucagon 1 mg 04/23/25 13:42 Glucagon For Inj 1 Mg Vial IM PRN PRN Hypoglycemia Protocol Glucose 15 gm 04/23/25 13:42 Glucose Oral Gel 15 Gm Of Glucse In 37.5 Gm Tube PO PRN PRN Hypoglycemia Protocol Albumin Human 50 mls @ 999 mls/hr 04/23/25 10:08 Albutein IVPB 05/23/25 10:07 Q10M PRN HYPOTENSION Dextrose 1,000 mls @ 100 mls/hr 04/23/25 13:42 Dextrose 5% 1,000 Ml IVPB PRN PRN Hypoglycemia Protocol Insulin Aspart 3 - 6 units 04/23/25 17:00 04/27/25 12:13 Insulin Aspart (*Bkc) 100 Units/Ml SUB-Q Not Given TIDWM DAVID Protocol Insulin Aspart 1 - 3 units 04/23/25 21:00 04/26/25 21:46 Insulin Aspart (*Bkc) 100 Units/Ml SUB-Q Not Given HS DAVID Protocol Levalbuterol HCl 0.63 mg 04/23/25 14:00 04/27/25 13:53 Levalbuterol Neb 1.25 Mg/3 Ml INHALATION 0.63 mg Q6HRT DAVID Administration Loratadine 10 mg 04/24/25 09:00 04/27/25 08:55 Loratadine 10 Mg Tablet PO 10 mg DAILY DAVID Administration Magnesium Citrate 296 ml 04/23/25 13:39 Magnesium Citrate 300 Ml Btl PO QAM PRN constipation Magnesium Hydroxide 30 ml 04/23/25 13:39 Magnesium Hydroxide Susp 30 Ml Udc PO HS PRN constipation Melatonin 3 mg 04/23/25 21:00 04/26/25 20:28 Melatonin 3 Mg Tablet PO 3 mg HS DAVID Administration Ondansetron HCl 4 mg 04/23/25 08:04 Ondansetron Inj 4 Mg/2 Ml Vial IV PUSH Q4H PRN Nausea Pentoxifylline 400 mg 04/23/25 18:00 04/26/25 17:27 Pentoxifylline 400 Mg Tabcr PO 400 mg QPM DAVID Administration Sevelamer Carbonate 800 mg 04/23/25 19:20 04/27/25 12:14 Sevelamer Carbonate 800 Mg Tablet PO 800 mg TIDWM DAIVD Administration Tamsulosin HCl 0.4 mg 04/23/25 21:00 04/26/25 20:27 Tamsulosin Hcl 0.4 Mg Capsule PO 0.4 mg QHS DAVID Administration Tramadol HCl 50 mg 04/23/25 17:00 04/27/25 08:55 Tramadol Hcl (*Crx) 50 Mg Tablet PO 50 mg BID DAVID Administration Umeclidinium [address] [place] 1 puff 04/24/25 09:00 04/26/25 09:[address] [place] 62.5 Mcg Ellipta INHALATION 1 puff DAILY DAVID Administration Vitamin B Complex 1 cap 04/24/25 09:00 04/27/25 08:55 Vitamin B Complex Capsule PO 1 cap DAILY DAVID Administration Radiology Results: ITS Impressions Chest/Abdomen/Pelvis CT 04/23/25 07:40 Impression: Moderate bilateral pleural effusions with mild pulmonary edema and bibasilar atelectatic change. Small gallstone. Splenomegaly, uncertain etiology. Mild gallbladder wall thickening is nonspecific, probably most likely related to the presence of ascites. If there is concern for acute cholecystitis, consider HIDA scan. Marked prostatomegaly. Chest X-Ray 04/24/25 16:32 IMPRESSION: Bilateral pneumonia with possible underlying pulmonary edema. Changes are slightly increased compared to previous study. Abdomen Ultrasound 04/27/25 15:15 IMPRESSION: Limited evaluation of the pancreas secondary to overlying bowel gas. Mural thickening, edema and hyperemia within the wall of the gallbladder with multiple adherent stones for which acute cholecystitis is suspected and for which clinical correlation is needed. Labs Labs: Laboratory Results - last 24 hr 04/26/25 04/27/25 04/27/25 21:40 06:18 07:45 WBC 5.6 RBC 3.12 L Hgb 8.0 L Hct 27.8 L MCV 89.1 MCH 25.6 L MCHC 28.8 L RDW 17.9 H Plt Count 246 MPV 9.6 Sodium 131 L Potassium 4.0 Chloride 95 L Carbon Dioxide 29 Anion Gap 7 BUN 27 H Creatinine 5.03 H Estim Creat Clear Calc 11 Estimated GFR 11 L Glucose 107 POC Capillary Glucose 179 H 97 Calcium 9.0 Total Bilirubin 0.3 AST 96 H ALT 308 H Alkaline Phosphatase 59 Ammonia < 9 L Total Protein 5.7 L Albumin 3.1 L Hepatitis A IgM Ab Negative Hepatitis C Ab Screen Negative 04/27/25 12:00 WBC RBC Hgb Hct MCV MCH MCHC RDW Plt Count MPV Sodium Potassium Chloride Carbon Dioxide Anion Gap BUN Creatinine Estim Creat Clear Calc Estimated GFR Glucose POC Capillary Glucose 84 Calcium Total Bilirubin AST ALT Alkaline Phosphatase Ammonia Total Protein Albumin Hepatitis A IgM Ab Hepatitis C Ab Screen
--- NOTE | 2025-04-27 19:35 | PC.NURSE ---
Pt returned from dialysis. 4L removed. Tolerated well per dialysis nurse.
[2025-04-27] MEDS: PENTOXIFYLLINE 400 MG TABCR PO (20:56)
[2025-04-27] MEDS: MELATONIN 3 MG TABLET PO (20:57)
[2025-04-27] MEDS: TAMSULOSIN HCL 0.4 MG CAPSULE PO (20:57)
[2025-04-27] MEDS: INSULIN ASPART (*BKC) 100 UNITS/ML SUB-Q (21:05)
[2025-04-28] VITALS (37 sets, daily range): BP systolic 97–140; BP diastolic 47–88; PULSE 59–78; RESP 12–20; TEMP 36.4–37.4; O2SAT 95–100
[2025-04-28 04:47] LABS: Hematocrit 30.1 % (42.0-52.0); Hemoglobin 8.6 g/dL (14.0-18.0); Mean Corpuscular HGB Conc 28.6 g/dl (32-36); Mean Corpuscular Hemoglobin 25.2 pg (26-34); Mean Corpuscular Volume 88.3 fl (80-100); Platelet Count Result 268 k/mm3 (150-375); Red Blood Count 3.41 M/mm3 (4.6-6.20); White Blood Count 6.8 K/mm3 (4.5-10.0)
[2025-04-28 05:02] LABS: Albumin Level 3.3 g/dL (3.5-5.1); Anion Gap 22 mmol/L (4-12); Blood Urea Nitrogen 37 mg/dL (9-20); Calcium 9.1 mg/dL (8.4-10.2); Carbon Dioxide 24 mmol/L (22-30); Chloride 94 mmol/L (98-107); Estimated CRCL calculation 9 ml/min; Estimated Glomerular Filt Rate 9; Glucose 187 mg/dL (65-110); Magnesium 2.3 mg/dL (1.6-2.3); Potassium 4.6 mmol/L (3.4-5.0); Sodium 140 mmol/L (137-145)
--- NOTE | 2025-04-28 10:00 | P.PNNP_ITS ---
Progress Note: A&P Assessment and Plan (1) End stage renal disease: Code(s): N18.6 - End stage renal disease Status: Chronic Assessment and Plan: * HD today * continue T/T/S outpatient dialysis schedule while hospitalized * follow electrolytes, volume status, and clearance (2) Acute on chronic hypoxic respiratory failure: Code(s): J96.21 - Acute and chronic respiratory failure with hypoxia Status: Acute Assessment and Plan: * stable if not slow improvement * due to several issues: * pulmonary edema * bilateral pleural effusions * pneumonia (?) * chronic CHF * COPD * relative anemia * aggressive fluid removal/ultrafiltration with dialysis * s/p dry ultrafiltration (on04/26) with additional 4L fluid removal * wean off supplemental oxygen as tolerated * follow respiratory status (3) Bacteremia: Code(s): R78.81 - Bacteremia Status: Acute Assessment and Plan: * blood culture with Staphylococcus capitis (1 set out of 2) * source?? -- real versus contamination?? * on vancomycin * follow repeat cultures (4) Transaminitis: Code(s): R74.01 - Elevation of levels of liver transaminase levels Status: Acute Assessment and Plan: * as noted by admission testing * due to CHF/pasive congestion of liver (?) * RUQ ultrasound results noted: * mural thickening, edema and hyperemia within the wall of the gallbladder with multiple adherent stones for which acute cholecystitis is suspected * Surgery consulted * follow trend of LFTs (5) Elevated troponin: Code(s): R79.89 - Other specified abnormal findings of blood chemistry Status: Acute Assessment and Plan: * as noted on admission * flat trend * suspect demand ischemia from acute illness * Cardiology following * Echo results (on 04/27) noted: * left ventricular systolic function is normal, estimated at 60-65% * right ventricular systolic function is reduced * mild mitral valve stenosis * mild mitral valve regurgitation * mild mitral valve calcification * mild tricuspid valve regurgitation * severe pulmonary hypertension, estimated pulmonary arterial systolic pressure is 71 mmHg * mild pulmonic regurgitation * plan stress test when acute medical issues resolved (6) Volume overload: Code(s): E87.70 - Fluid overload, unspecified Status: Acute Assessment and Plan: * as noted by admission imaging findings * ongoing fluid removal/ultrafiltration with dialysis/DUF to maintain euvolemia * in the past, this has been complicated by his COPD/reactive airway disease + CARITO (7) Anemia: Code(s): D64.9 - Anemia, unspecified Status: Chronic Assessment and Plan: * due to ESRD * possibly worsened by previous GI bleed issues * Epogen with HD * PRBC transfusion per protocol * anticoagulation on hold * follow trend of H/H (8) Atrial fibrillation: Code(s): I48.91 - Unspecified atrial fibrillation Status: Chronic Assessment and Plan: * rate control strategy * Cardiology recommendations noted * anticoagulation on hold (9) Essential (primary) hypertension: Code(s): I10 - Essential (primary) hypertension Status: Chronic Assessment and Plan: * reasonable control * follow trend of hemodynamics (10) Chronic obstructive pulmonary disease: Code(s): J44.9 - Chronic obstructive pulmonary disease, unspecified Status: Chronic Assessment and Plan: * continue home inhalers * nebulizer treatments PRN (11) Obstructive sleep apnea: Code(s): G47.33 - Obstructive sleep apnea (adult) (pediatric) Status: Chronic Assessment and Plan: * BiPAP at night/sleep and with naps * appears to be tolerating fairly well (12) IDDM (insulin dependent diabetes mellitus): Status: Chronic Assessment and Plan: * follow accu-cheks * glycemic control per hospitalist Will continue to follow. L Subjective Date/time seen: 04/28/25 10:00 Interval history: Follow-up for end stage renal disease on hemodialysis. Tolerating dialysis treatment at the time of my visit (seen on HD at 9:50am); remains on 3L of oxygen by nasal cannula; results of RUQ ultrasound noted and Surgery consulted; no other acute complaints voiced at this time; no other events overnight or earlier this morning. Exam 2 Narrative: General: elderly WD/WN male in NAD Heart: IRRR, normal S1 and S2; no rub Lungs: coarse breath sounds; decreased at bases Abdomen: soft, nontender, nondistended, positive bowel sounds Extremities: no cyanosis or clubbing; no edema Skin: warm and dry Objective Data Vital Signs Vital Signs: Vital Signs Temp Pulse Resp BP Pulse Ox O2 Del Method O2 Flow Rate 04/28/25 10:00 65 04/28/25 10:00 74 111/49 L 04/28/25 09:45 75 109/55 L 04/28/25 09:15 64 97/57 L 04/28/25 09:00 75 101/51 L 04/28/25 08:45 63 108/54 L 04/28/25 08:38 70 102/55 L 04/28/25 08:38 3 04/28/25 08:23 98.1 F 64 16 106/54 L 100 04/28/25 08:00 77 04/28/25 07:33 98.3 F 60 20 101/48 L 95 04/28/25 06:00 67 04/28/25 04:00 68 04/28/25 04:00 99 BiPAP 04/28/25 04:00 97.5 F L 67 16 104/51 L 99 04/28/25 02:21 70 16 04/28/25 02:10 63 15 98 BiPAP 04/28/25 02:07 70 16 04/28/25 02:00 65 04/28/25 00:00 97.8 F 65 20 109/88 100 04/28/25 00:00 62 04/28/25 00:00 100 BiPAP 04/27/25 22:49 58 L 14 94 BiPAP 04/27/25 22:00 61 04/27/25 20:57 67 04/27/25 20:27 70 16 04/27/25 20:18 71 18 100 Nasal Cannula 3 04/27/25 20:16 70 16 04/27/25 20:00 71 04/27/25 20:00 100 Nasal Cannula 3 04/27/25 20:00 97.5 F L 66 16 115/67 96 04/27/25 19:30 97.6 F 70 17 120/59 L 99 04/27/25 19:10 68 118/57 L 04/27/25 19:00 61 119/57 L 04/27/25 18:45 64 123/61 04/27/25 18:30 70 112/58 L 04/27/25 18:15 70 125/65 04/27/25 18:00 72 04/27/25 18:00 67 118/54 L 04/27/25 17:45 60 111/55 L 04/27/25 17:30 61 109/59 L 04/27/25 17:15 62 119/60 04/27/25 17:00 62 127/58 L 04/27/25 16:45 68 137/62 04/27/25 16:30 65 116/59 L 04/27/25 16:15 64 130/59 L 04/27/25 16:00 100 Nasal Cannula 3 04/27/25 16:00 70 04/27/25 16:00 64 123/56 L 04/27/25 15:50 3 04/27/25 15:50 98 F 64 17 125/64 98 04/27/25 14:23 Nasal Cannula 3 04/27/25 14:00 63 04/27/25 13:59 70 16 04/27/25 13:50 67 16 04/27/25 12:16 97.5 F L 89 20 122/61 100 04/27/25 12:00 100 Nasal Cannula 3 04/27/25 12:00 76 Intake/Output Intake/Output: Intake & Output 04/25/25 04/26/25 04/27/25 04/28/25 23:59 23:59 23:59 23:59 Intake Total 1070 1000 390 370 Output Total 5700 4000 0 Balance -4630 1000 -3610 370 Meds/Results Medications: Active Medications Generic Name Dose Route Start Last Admin Trade Name Freq PRN Reason Stop Dose Admin Acetaminophen 650 mg 04/23/25 13:39 04/25/25 19:59 Acetaminophen 325 Mg Tablet PO 650 mg Q4H PRN Administration Mild Pain (1-3) Or Fever Hydrocodone Bitart/Acetaminophen 1 tab 04/25/25 20:28 04/27/25 04:08 Hydrocodone/Acetaminophen (*Crx) 5-325 Mg Tablet PO 1 tab Q4H PRN Administration Pain Rated 4-6 Aspirin 81 mg 04/24/25 09:00 04/27/25 08:55 Aspirin 81 Mg Enteric Tablet PO 81 mg DAILY DAVID Administration Atorvastatin Calcium 20 mg 04/23/25 21:00 04/25/25 19:58 Atorvastatin 20 Mg Tablet PO 20 mg HS DAVID Administration Carvedilol 25 mg 04/23/25 21:00 04/27/25 20:57 Carvedilol 25 Mg Tablet PO 25 mg Q12HR DAVID Administration Cinacalcet 90 mg 04/24/25 09:00 04/27/25 08:55 Cinacalcet 30 Mg Tablet PO 90 mg DAILY DAVID Administration Dextrose 12.5 gm 04/23/25 13:42 Dextrose 50% 25 Gm/50 Ml Syringe IV PUSH PRN PRN Hypoglycemia Protocol Finasteride 5 mg 04/24/25 09:00 04/27/25 08:55 Finasteride 5 Mg Tablet PO 5 mg QAM DAVID Administration Furosemide 80 mg 04/23/25 17:00 04/27/25 20:57 Furosemide 80 Mg Tablet PO 80 mg BID DAVID Administration Gabapentin 100 mg 04/23/25 17:00 04/27/25 20:57 Gabapentin 100 Mg Capsule PO 100 mg TID DAVID Administration Glucagon 1 mg 04/23/25 13:42 Glucagon For Inj 1 Mg Vial IM PRN PRN Hypoglycemia Protocol Glucose 15 gm 04/23/25 13:42 Glucose Oral Gel 15 Gm Of Glucse In 37.5 Gm Tube PO PRN PRN Hypoglycemia Protocol Albumin Human 50 mls @ 999 mls/hr 04/23/25 10:08 Albutein IVPB 05/23/25 10:07 Q10M PRN HYPOTENSION Dextrose 1,000 mls @ 100 mls/hr 04/23/25 13:42 Dextrose 5% 1,000 Ml IVPB PRN PRN Hypoglycemia Protocol Insulin Aspart 3 - 6 units 04/23/25 17:00 04/27/25 20:52 Insulin Aspart (*Bkc) 100 Units/Ml SUB-Q Not Given TIDWM DAVID Protocol Insulin Aspart 1 - 3 units 04/23/25 21:00 04/27/25 21:05 Insulin Aspart (*Bkc) 100 Units/Ml SUB-Q 1 units HS DAVID Administration Protocol Levalbuterol HCl 0.63 mg 04/23/25 14:00 04/28/25 08:17 Levalbuterol Neb 1.25 Mg/3 Ml INHALATION Not Given Q6HRT DAVID Loratadine 10 mg 04/24/25 09:00 04/27/25 08:55 Loratadine 10 Mg Tablet PO 10 mg DAILY DAVID Administration Magnesium Citrate 296 ml 04/23/25 13:39 Magnesium Citrate 300 Ml Btl PO QAM PRN constipation Magnesium Hydroxide 30 ml 04/23/25 13:39 Magnesium Hydroxide Susp 30 Ml Udc PO HS PRN constipation Melatonin 3 mg 04/23/25 21:00 04/27/25 20:57 Melatonin 3 Mg Tablet PO 3 mg HS DAVID Administration Ondansetron HCl 4 mg 04/23/25 08:04 Ondansetron Inj 4 Mg/2 Ml Vial IV PUSH Q4H PRN Nausea Pentoxifylline 400 mg 04/23/25 18:00 04/27/25 20:56 Pentoxifylline 400 Mg Tabcr PO 400 mg QPM DAVID Administration Sevelamer Carbonate 800 mg 04/23/25 19:20 04/27/25 20:57 Sevelamer Carbonate 800 Mg Tablet PO 800 mg TIDWM DAVID Administration Tamsulosin HCl 0.4 mg 04/23/25 21:00 04/27/25 20:57 Tamsulosin Hcl 0.4 Mg Capsule PO 0.4 mg QHS DAVID Administration Tramadol HCl 50 mg 04/23/25 17:00 04/27/25 20:57 Tramadol Hcl (*Crx) 50 Mg Tablet PO 50 mg BID DAVID Administration Umeclidinium [place] 1 puff 04/24/25 09:00 04/27/25 20:52 Umeclidinium [place] 62.5 Mcg Ellipta INHALATION Not Given DAILY DAVID Vitamin B Complex 1 cap 04/24/25 09:00 04/27/25 08:55 Vitamin B Complex Capsule PO 1 cap DAILY DAVID Administration Radiology Results: ITS Impressions Chest/Abdomen/Pelvis CT 04/23/25 07:40 Impression: Moderate bilateral pleural effusions with mild pulmonary edema and bibasilar atelectatic change. Small gallstone. Splenomegaly, uncertain etiology. Mild gallbladder wall thickening is nonspecific, probably most likely related to the presence of ascites. If there is concern for acute cholecystitis, consider HIDA scan. Marked prostatomegaly. Chest X-Ray 04/24/25 16:32 IMPRESSION: Bilateral pneumonia with possible underlying pulmonary edema. Changes are slightly increased compared to previous study. Abdomen Ultrasound 04/27/25 15:15 IMPRESSION: Limited evaluation of the pancreas secondary to overlying bowel gas. Mural thickening, edema and hyperemia within the wall of the gallbladder with multiple adherent stones for which acute cholecystitis is suspected and for which clinical correlation is needed. Labs Labs: Laboratory Tests 04/28/25 04:15 04/28/25 04:15 Calcium 9.1 Phosphorus 4.1 Magnesium 2.3 Albumin 3.3 L
--- NOTE | 2025-04-28 11:12 | P.CONGS_ITS ---
Assessment and Plan Assessment and plan (1) Cholelithiasis: Code(s): K80.20 - Calculus of gallbladder without cholecystitis without obstruction Status: Acute Assessment and Plan: * Imaging reviewed with findings of cholelithiasis and ultrasound suggested possible acute cholecystitis. Although the patient may have presented with some abdominal pain and elevated AST and ALT. His pain quickly resolved. He is no longer having any abdominal pain and has been tolerating a diet for days. His AST and ALT is trending down. He has multiple medical problems that would make him a high risk surgical candidate for an elective surgery. Since he is asymptomatic, we would recommend continuing with conservative treatment and recommend discharging with low fat diet restrictions. Would only recommend re- evaluation of his gallbladder if he has an acute onset of RUQ abdominal pain. That being said, he would also prefer conservative management after I spoke with him about the plan. Okay from our standpoint to discharge the patient when medically stable. (2) Transaminitis: Code(s): R74.01 - Elevation of levels of liver transaminase levels Status: Acute (3) Acute exacerbation of CHF (congestive heart failure): Qualifiers: Heart failure type: unspecified Qualified Code(s): I50.9 - Heart failure, unspecified Code(s): I50.9 - Heart failure, unspecified Status: Acute (4) Pulmonary hypertension: Code(s): I27.20 - Pulmonary hypertension, unspecified Status: Acute (5) Atrial fibrillation: Code(s): I48.91 - Unspecified atrial fibrillation Status: Chronic (6) Peripheral vascular disease: Onset Date: ~03/2023 Code(s): I73.9 - Peripheral vascular disease, unspecified Status: Acute (7) Chronic anticoagulation: Code(s): Z79.01 - senior care (current) use of anticoagulants Status: Acute Assessment and Plan: * On Eliquis chronically for paroxysmal atrial fibrillation, which remains on hold. (8) Hematoma of right lower leg: Code(s): S80.11XA - Contusion of right lower leg, initial encounter Status: Acute Assessment and Plan: * Stable hematoma of the anterior right lower leg with a dry, firm black eschar. There is no drainage and no signs of infection. Would recommend continued local wound care for now and this can be monitored at the nursing facility. This may eventually require incision and drainage if it becomes infected or starts to open and drain. Continue betadine swabs for wound care. (9) IDDM (insulin dependent diabetes mellitus): Status: Chronic (10) Ulcer of right heel: Code(s): L97.419 - Non-pressure chronic ulcer of right heel and midfoot with unspecified severity Status: Acute Assessment and Plan: * Unstageable right heel decubitus ulcer. This is a chronic wound that appears stable with no signs of infection. Continue local wound care with betadine swabs and pressure offloading. (11) End-stage renal disease on hemodialysis: Code(s): N18.6 - End stage renal disease; Z99.2 - Dependence on renal dialysis Status: Acute (12) COPD (chronic obstructive pulmonary disease): Qualifiers: COPD type: unspecified COPD Qualified Code(s): J44.9 - Chronic obstructive pulmonary disease, unspecified Code(s): J44.9 - Chronic obstructive pulmonary disease, unspecified Status: Chronic (13) Obstructive sleep apnea: Code(s): G47.33 - Obstructive sleep apnea (adult) (pediatric) Status: Chronic Plan I have discussed the patient's case and plan of care with Dr. Muhammad. History of Present Illness Consult details Consult date: 04/28/25 Reason for consult: other (Possible cholecystitis) Requesting physician: Raoul Wahl MD Narrative: This is a 79-year-old man with a history of COPD, diabetes, HTN, paroxysmal atrial fibrillation on Eliquis, peripheral vascular disease, end-stage renal disease on hemodialysis, and multiple other medical problems who resides in a detention. We have been asked to see him in surgical consultation for possible cholecystitis. The patient is in the hospital frequently with multiple recent hospitalizations for a variety of issues. He was brought in from the detention 6 days ago for weakness and generalized pain. In the ED note, he had been complaining of abdominal pain per EMS. The patient cannot recall the events leading up to his admission. He does not recall ever having any abdominal pain and denies any abdominal pain at this time. He has been admitted for acute respiratory failure, elevated troponin, and CHF exacerbation. CT of the chest, abdomen, and pelvis on admission showed moderate bilateral pleural effusions and pulmonary edema, and a small gallstone with mild gallbladder wall thickening that is nonspecific and most likely related to the presence of ascites. On his initial labs he was noted to have elevated AST and ALT. AST 501 and ALT 349. This is a change from previous labs. Yesterday, he had a right upper quadrant abdominal ultrasound that showed mural thickening, edema, and hyperemia within the wall of the gallbladder with multiple adherent stones for which acute cholecystitis is suspected. His LFTs have been trending down over the past few days. He has been tolerating a diet without any abdominal pain, nausea or vomiting. He is not having any abdominal pain at this time. His Eliquis has been held since his admission. He is also noted to have a hematoma on his anterior right lower leg and right heel ulcer, which was evaluated by Wound Care. Both areas have Betadine swabs for local wound care. He reports hitting his leg on a wheelchair about 3 weeks ago. In his chart, there is mention of him having baseline confusion and being oriented x2. For me, he is alert and oriented x3. He is now seen in dialysis. Review of Systems 2 Review of Systems: All systems reviewed & are unremarkable except as noted in HPI and below [facility] Past Medical History Medical History (Updated 04/28/25 @ 11:30 by EDNA Aguilar) AVM (arteriovenous malformation) of colon, acquired with hemorrhage Chronic anticoagulation Insulin dependent type 2 diabetes mellitus (~2009) Chronic obstructive pulmonary disease Diabetic polyneuropathy Coronary artery disease Anemia Atrial fibrillation Chronic neck and back pain Insomnia History of nephrolithiasis Sinus pause (~09/2024) Obstructive sleep apnea Intolerant to CPAP Benign prostatic hyperplasia Peripheral vascular disease (~03/2023) Internal hemorrhoid, bleeding End-stage renal disease on hemodialysis DVT dialysis Sunday History of colon polyps Environmental allergies Vitamin D deficiency Dyslipidemia Essential (primary) hypertension Surgical History Surgical History History of cardiac pacemaker (~10/2024) Medtronic pacemaker placed due to symptomatic sinus pauses causing syncope performed at [facility] Status post cataract extraction of both eyes with insertion of intraocular lens History of colonoscopy with polypectomy History of hemorrhoidectomy (~01/12/24) Anorectal evaluation under anesthesia and excisional hemorrhoidectomy x3 12/14/23 SAW S/P peripheral artery angioplasty (~03/2023) status post balloon angioplasty of bilateral common and external iliac arteries status post left iliofemoral endarterectomy Arteriovenous fistula of left upper extremity (~2018) History of appendectomy (~1963) History of coronary artery bypass graft (~2013) Family History Family History Mother Diabetes mellitus Acute myocardial infarction Family history of congestive heart failure Father Hypertension Social History Social History Social History: The patient is . He and his brother live together prior to his hospitalization November or December 2024 and subsequent placement in to [facility]. He is retired after 26 years of serving in the [employer]. He has 4 children. He used to smoke 1.5-2 packs of cigarettes per day but quit smoking in approximately 2009. He will on a rare occasion drink an alcoholic beverage maybe 2 to 3 times a year. He denies illicit substance use. Surrogate medical decision maker: Wilian Yuni, sibling. Code status: Full code. Caffeine- daily Smoking packs per day: 1.5 Smoking cigarettes per day: 30.0 Years smoked: 44 Smoking pack-years: 66.00 Smoking status: Former smoker Second hand tobacco smoke exposure: No Alcohol intake: unknown Alcohol use details: Maybe 2-3 per year Substance use: never Substance use type: does not use Do You Feel Safe in your Home?: Yes Lack of Transportation: No Lack of Food: Never True Current Housing: I Have Housing Concerned About Future Housing: No Difficulty Paying Gas/Electric Bills: No Difficulty Paying for Meds: No Currently Unemployed: No Education: Don't Know Difficulty w/ Childcare or Family Care: No Living arrangements: with family Occupation/Education: retired Additional occupation/education comments: Retired from the [employer]. 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 Spiritual care concerns: No Agree to blood products: Yes Meds Home Medications and Allergies Home Medications ?Medication ?Instructions ?Recorded ?Confirmed ?Type aspirin 81 mg tablet,delayed 81 mg PO DAILY 10/31/21 04/23/25 History release carvedilol 25 mg tablet 25 mg PO BID 10/31/21 04/23/25 History insulin lispro 100 unit/mL 4 unit subcut .TIDAC 10/31/21 04/23/25 History subcutaneous pen loratadine 10 mg tablet (Claritin) 10 mg PO DAILY 10/31/21 04/23/25 History insulin glargine 100 unit/mL (3 6 unit subcut HS 11/07/23 04/23/25 History mL) subcutaneous pen (Lantus Solostar U-100 Insulin) cinacalcet 90 mg PO DAILY 12/12/23 04/23/25 History atorvastatin 20 mg tablet 20 mg PO HS 12/21/24 04/23/25 History finasteride 5 mg tablet (Proscar) 5 mg PO QAM #30 tabs 12/23/24 04/23/25 Rx furosemide 80 mg tablet 80 mg PO BID #60 tabs 12/23/24 04/23/25 Rx tamsulosin 0.4 mg capsule 0.4 mg PO QHS #30 caps 12/23/24 04/23/25 Rx acetaminophen 325 mg tablet 650 mg (2 x 325 mg) PO Q4H PRN 01/10/25 04/23/25 Rx Mild Pain (1-3) Or Fever #60 tabs pentoxifylline 400 mg 400 mg PO QPM 01/29/25 04/23/25 History tablet,extended release amlodipine 10 mg tablet 10 mg PO DAILY 02/16/25 04/23/25 History bisacodyl 10 mg rectal suppository 10 mg RECTAL DAILY PRN constipation 02/16/25 04/23/25 History (Laxative (bisacodyl)) gabapentin 100 mg capsule 100 mg PO TID 02/16/25 04/23/25 History liraglutide 0.6 mg/0.1 mL (18 mg/3 1.2 mg subcut HS 02/16/25 04/23/25 History mL) subcutaneous pen injector magnesium citrate (Citroma oral 296 ml PO .AM PRN constipation 02/16/25 04/23/25 History solution) magnesium hydroxide 400 mg/5 mL 30 ml PO HS PRN constipation 02/16/25 04/23/25 History oral suspension (Milk of Magnesia) sodium phosphates 19 gram-7 118 ml RECTAL DAILY PRN 02/16/25 04/23/25 History gram/118 mL enema (Fleet Enema) constipation vitamin B complex 1 cap PO DAILY 02/16/25 04/23/25 History ipratropium 20 mcg-albuterol 100 1 puff inhalation Q6H PRN 03/10/25 04/23/25 History mcg/actuation mist for inhalation shortness of breath or wheezing (Combivent Respimat) loperamide 2 mg capsule 2 mg PO Q4H PRN loose stool 03/10/25 04/23/25 History melatonin 3 mg tablet 3 mg PO HS 03/10/25 04/23/25 History tramadol 50 mg tablet 50 mg PO BID 03/10/25 04/23/25 History umeclidinium 62.5 mcg/actuation 1 inh inhalation DAILY 03/10/25 04/23/25 History blister powder for inhalation (Incruse Ellipta) levalbuterol HCl 0.63 mg/3 mL 0.63 mg (3 mL) inhalation Q6H PRN 03/19/25 04/23/25 Rx solution for nebulization shortness of breath or wheezing #90 mL levalbuterol HCl 1.25 mg/3 mL 0.63 mg (1.512 mL) inhalation 03/19/25 04/23/25 Rx solution for nebulization Q6HRT #30 vials sevelamer carbonate 0.8 gram oral 0.8 g PO TIDWM #60 grams 03/19/25 04/23/25 Rx powder packet apixaban 2.5 mg tablet (Eliquis) 2.5 mg PO Q12HR #60 tabs 03/27/25 04/23/25 Rx Allergies Allergy/AdvReac Type Severity Reaction Status Date / Time baclofen Allergy Severe encephalopa Verified 04/23/25 04:18 thy Vital Signs Vital Signs - 24 hr 04/27/25 12:00 04/27/25 12:00 04/27/25 12:16 Temperature 97.5 F L Pulse Rate 76 89 Respiratory Rate 20 Blood Pressure 122/61 Pulse Oximetry 100 100 Oxygen Delivery Nasal Cannula Oxygen Flow Rate 3 Fraction of Inspired Oxygen 04/27/25 13:50 04/27/25 13:59 04/27/25 14:00 Temperature Pulse Rate 67 70 63 Respiratory Rate 16 16 Blood Pressure Pulse Oximetry Oxygen Delivery Oxygen Flow Rate Fraction of Inspired Oxygen 04/27/25 14:23 04/27/25 15:50 04/27/25 15:50 Temperature 98 F Pulse Rate 64 Respiratory Rate 17 Blood Pressure 125/64 Pulse Oximetry 98 Oxygen Delivery Nasal Cannula Oxygen Flow Rate 3 3 Fraction of Inspired Oxygen 04/27/25 16:00 04/27/25 16:00 04/27/25 16:00 Temperature Pulse Rate 64 70 Respiratory Rate Blood Pressure 123/56 L Pulse Oximetry 100 Oxygen Delivery Nasal Cannula Oxygen Flow Rate 3 Fraction of Inspired Oxygen 04/27/25 16:15 04/27/25 16:30 04/27/25 16:45 Temperature Pulse Rate 64 65 68 Respiratory Rate Blood Pressure 130/59 L 116/59 L 137/62 Pulse Oximetry Oxygen Delivery Oxygen Flow Rate Fraction of Inspired Oxygen 04/27/25 17:00 04/27/25 17:15 04/27/25 17:30 Temperature Pulse Rate 62 62 61 Respiratory Rate Blood Pressure 127/58 L 119/60 109/59 L Pulse Oximetry Oxygen Delivery Oxygen Flow Rate Fraction of Inspired Oxygen 04/27/25 17:45 04/27/25 18:00 04/27/25 18:00 Temperature Pulse Rate 60 67 72 Respiratory Rate Blood Pressure 111/55 L 118/54 L Pulse Oximetry Oxygen Delivery Oxygen Flow Rate Fraction of Inspired Oxygen 04/27/25 18:15 04/27/25 18:30 04/27/25 18:45 Temperature Pulse Rate 70 70 64 Respiratory Rate Blood Pressure 125/65 112/58 L 123/61 Pulse Oximetry Oxygen Delivery Oxygen Flow Rate Fraction of Inspired Oxygen 04/27/25 19:00 04/27/25 19:10 04/27/25 19:30 Temperature 97.6 F Pulse Rate 61 68 70 Respiratory Rate 17 Blood Pressure 119/57 L 118/57 L 120/59 L Pulse Oximetry 99 Oxygen Delivery Oxygen Flow Rate Fraction of Inspired Oxygen 04/27/25 20:00 04/27/25 20:00 04/27/25 20:00 Temperature 97.5 F L Pulse Rate 66 71 Respiratory Rate 16 Blood Pressure 115/67 Pulse Oximetry 96 100 Oxygen Delivery Nasal Cannula Oxygen Flow Rate 3 Fraction of Inspired Oxygen 04/27/25 20:16 04/27/25 20:18 04/27/25 20:27 Temperature Pulse Rate 70 71 70 Respiratory Rate 16 18 16 Blood Pressure Pulse Oximetry 100 Oxygen Delivery Nasal Cannula Oxygen Flow Rate 3 Fraction of Inspired Oxygen 04/27/25 20:57 04/27/25 22:00 04/27/25 22:49 Temperature Pulse Rate 67 61 58 L Respiratory Rate 14 Blood Pressure Pulse Oximetry 94 Oxygen Delivery BiPAP Oxygen Flow Rate Fraction of Inspired Oxygen 04/28/25 00:00 04/28/25 00:00 04/28/25 00:00 Temperature 97.8 F Pulse Rate 62 65 Respiratory Rate 20 Blood Pressure 109/88 Pulse Oximetry 100 100 Oxygen Delivery BiPAP Oxygen Flow Rate Fraction of Inspired Oxygen 30 04/28/25 02:00 04/28/25 02:07 04/28/25 02:10 Temperature Pulse Rate 65 70 63 Respiratory Rate 16 15 Blood Pressure Pulse Oximetry 98 Oxygen Delivery BiPAP Oxygen Flow Rate Fraction of Inspired Oxygen 04/28/25 02:21 04/28/25 04:00 04/28/25 04:00 Temperature 97.5 F L Pulse Rate 70 67 Respiratory Rate 16 16 Blood Pressure 104/51 L Pulse Oximetry 99 99 Oxygen Delivery BiPAP Oxygen Flow Rate Fraction of Inspired Oxygen 30 04/28/25 04:00 04/28/25 06:00 04/28/25 07:33 Temperature 98.3 F Pulse Rate 68 67 60 Respiratory Rate 20 Blood Pressure 101/48 L Pulse Oximetry 95 Oxygen Delivery Oxygen Flow Rate Fraction of Inspired Oxygen 04/28/25 08:23 04/28/25 08:38 04/28/25 08:38 Temperature 98.1 F Pulse Rate 64 70 Respiratory Rate 16 Blood Pressure 106/54 L 102/55 L Pulse Oximetry 100 Oxygen Delivery Oxygen Flow Rate 3 Fraction of Inspired Oxygen 04/28/25 08:45 04/28/25 09:00 04/28/25 09:15 Temperature Pulse Rate 63 75 64 Respiratory Rate Blood Pressure 108/54 L 101/51 L 97/57 L Pulse Oximetry Oxygen Delivery Oxygen Flow Rate Fraction of Inspired Oxygen 04/28/25 09:30 04/28/25 09:45 04/28/25 10:00 Temperature Pulse Rate 66 75 74 Respiratory Rate Blood Pressure 103/47 L 109/55 L 111/49 L Pulse Oximetry Oxygen Delivery Oxygen Flow Rate Fraction of Inspired Oxygen 04/28/25 10:15 04/28/25 10:30 04/28/25 10:45 Temperature Pulse Rate 70 62 63 Respiratory Rate Blood Pressure 108/54 L 117/54 L 123/58 L Pulse Oximetry Oxygen Delivery Oxygen Flow Rate Fraction of Inspired Oxygen Exam 2 Const: General: comfortable, no acute distress and ill appearing chronically Nutritional Appearance: average body habitus Orientation/consciousness: p atient oriented x3 HENMT: Head: normocephalic and atraumatic Ears: hearing grossly normal bilaterally Mouth: Yes moist mucous membranes Eyes: General: appearance normal, both eyes and all related structures P upils: Equal, round and reactive pupils present Neck: Neck: normal visual inspection and full ROM Resp: Effort & Inspection: no respiratory distress Auscultation: diminished lung sounds Cardio: Rate: regular rate Rhythm: regular rhythm GI: Inspection: non-distended and scar (transverse RLQ scar) GI Palp: Yes Soft to palpation, Yes Tenderness to palpation present (GI) (very mild RUQ tenderness with deep palpation), No Guarding due to palpation present (GI), Yes No hepatosplenomegaly present, No Hernia present and No Rebound tenderness present Auscultation: normal bowel sounds Skin: General skin exam: normal color Other: Right anterior lower leg has an 8 x 5 cm hematoma with a central 2 x 3 cm area of dry black eschar. No drainage, no erythema, and no warmth. Unstageable right heel ulcer with 100% dry, firm, black eschar. No surrounding erythema or warmth. No drainage. Neuro: General: moves all extremities and no focal motor deficits Speech: n ormal speech Motor exam (neuro): 5/5 motor strength present throughout Extrem: General: no calf tenderness and no edema Psych: Mental Status: mental status grossly normal Attitude: cooperative Insight: Good insight present (Psych) Judgement: Good judgement present (Psych) Results Labs 04/28/25 04:15 04/28/25 04:15 Labs: Abnormal lab results 04/27/25 04/28/25 04/28/25 Range/Units 20:55 04:15 07:28 RBC 3.41 L (4.6-6.20) M/mm3 Hgb 8.6 L (14.0-18.0) g/dL Hct 30.1 L (42.0-52.0) % MCH 25.2 L (26-34) pg MCHC 28.6 L (32-36) g/dl RDW 18.2 H (11.5-14.5) % Chloride 94 L (98-107) mmol/L Anion Gap 22 H (4-12) mmol/L BUN 37 H D (9-20) mg/dL Creatinine 6.02 H (0.7-1.3) mg/dL Estimated GFR 9 L (59 - ) Glucose 187 H (65-110) mg/dL POC Capillary Glucose 232 H 184 H (65-105) mg/dl Albumin 3.3 L (3.5-5.1) g/dL Diabetes panel 04/28/25 Range/Units 04:15 Sodium 140 (137-145) mmol/L Potassium 4.6 (3.4-5.0) mmol/L Chloride 94 L (98-107) mmol/L Carbon Dioxide 24 (22-30) mmol/L BUN 37 H D (9-20) mg/dL Creatinine 6.02 H (0.7-1.3) mg/dL Glucose 187 H (65-110) mg/dL Calcium 9.1 (8.4-10.2) mg/dL Albumin 3.3 L (3.5-5.1) g/dL Calcium panel 04/28/25 Range/Units 04:15 Calcium 9.1 (8.4-10.2) mg/dL Phosphorus 4.1 (2.5-4.5) mg/dL Albumin 3.3 L (3.5-5.1) g/dL Pituitary panel 04/28/25 Range/Units 04:15 Sodium 140 (137-145) mmol/L Potassium 4.6 (3.4-5.0) mmol/L Chloride 94 L (98-107) mmol/L Carbon Dioxide 24 (22-30) mmol/L BUN 37 H D (9-20) mg/dL Creatinine 6.02 H (0.7-1.3) mg/dL Glucose 187 H (65-110) mg/dL Calcium 9.1 (8.4-10.2) mg/dL Adrenal panel 04/28/25 Range/Units 04:15 Sodium 140 (137-145) mmol/L Potassium 4.6 (3.4-5.0) mmol/L Chloride 94 L (98-107) mmol/L Carbon Dioxide 24 (22-30) mmol/L BUN 37 H D (9-20) mg/dL Creatinine 6.02 H (0.7-1.3) mg/dL Glucose 187 H (65-110) mg/dL Calcium 9.1 (8.4-10.2) mg/dL Albumin 3.3 L (3.5-5.1) g/dL All other labs normal. Imaging Additional studies: ITS Impressions Chest X-Ray 04/23/25 05:30 Impression: Probable mild somewhat asymmetric pulmonary edema on the left side, versus possibly pneumonia. Minimal pleural effusions. Chest/Abdomen/Pelvis CT 04/23/25 07:40 Impression: Moderate bilateral pleural effusions with mild pulmonary edema and bibasilar atelectatic change. Small gallstone. Splenomegaly, uncertain etiology. Mild gallbladder wall thickening is nonspecific, probably most likely related to the presence of ascites. If there is concern for acute cholecystitis, consider HIDA scan. Marked prostatomegaly. Chest X-Ray 04/24/25 16:32 IMPRESSION: Bilateral pneumonia with possible underlying pulmonary edema. Changes are slightly increased compared to previous study. Abdomen Ultrasound 04/27/25 15:15 IMPRESSION: Limited evaluation of the pancreas secondary to overlying bowel gas. Mural thickening, edema and hyperemia within the wall of the gallbladder with multiple adherent stones for which acute cholecystitis is suspected and for which clinical correlation is needed.
[2025-04-28] MEDS: EPOETIN ALFA-EPBX 20,000 UNITS/ML VIAL 20000 UNITS IV PUSH (11:28)
[2025-04-28] MEDS: ASPIRIN 81 MG ENTERIC TABLET PO (13:08)
[2025-04-28] MEDS: LORATADINE 10 MG TABLET PO (13:08)
[2025-04-28] MEDS: CINACALCET 30 MG TABLET 90 MG PO (13:09)
[2025-04-28] MEDS: traMADol HCL (*CRX) 50 MG TABLET PO ×2 (13:10→17:52)
[2025-04-28] MEDS: FUROSEMIDE 80 MG TABLET PO (13:10)
[2025-04-28] MEDS: VITAMIN B COMPLEX CAPSULE 1 CAP PO (13:10)
[2025-04-28] MEDS: GABAPENTIN 100 MG CAPSULE PO ×2 (13:10→17:54)
[2025-04-28] MEDS: FINASTERIDE 5 MG TABLET PO (13:10)
[2025-04-28] MEDS: SEVELAMER CARBONATE 800 MG TABLET PO ×2 (13:11→17:48)
[2025-04-28] MEDS: UMECLIDINIUM BROMIDE 62.5 MCG ELLIPTA 1 PUFF INHALATION (13:28)
--- NOTE | 2025-04-28 15:18 | P.DS_ITS ---
DS: Admitting Diagnosis Discharge Date 04/28/25 Admitting Diagnosis Weakness DS: Discharge Diagnosis Discharge Diagnosis (1) Acute respiratory failure: Code(s): J96.00 - Acute respiratory failure, unspecified whether with hypoxia or hypercapnia Status: Acute (2) Bacteremia: Code(s): R78.81 - Bacteremia Status: Acute (3) Acute exacerbation of CHF (congestive heart failure): Qualifiers: Heart failure type: unspecified Qualified Code(s): I50.9 - Heart failure, unspecified Code(s): I50.9 - Heart failure, unspecified Status: Acute (4) Bilateral pleural effusion: Code(s): J90 - Pleural effusion, not elsewhere classified Status: Acute (5) Non-ST elevation TN (NSTEMI): Code(s): I21.4 - Non-ST elevation (NSTEMI) myocardial infarction Status: Acute (6) Atrial fibrillation with controlled ventricular rate: Code(s): I48.91 - Unspecified atrial fibrillation Status: Acute (7) ESRD on dialysis: Code(s): N18.6 - End stage renal disease; Z99.2 - Dependence on renal dialysis Status: Acute (8) Transaminitis: Code(s): R74.01 - Elevation of levels of liver transaminase levels Status: Acute (9) Normocytic anemia: Code(s): D64.9 - Anemia, unspecified Status: Acute (10) AVM (arteriovenous malformation) of colon, acquired with hemorrhage: Code(s): K55.21 - Angiodysplasia of colon with hemorrhage Status: Acute (11) Insulin dependent type 2 diabetes mellitus: Onset Date: Code(s): E11.9 - Type 2 diabetes mellitus without complications; Z79.4 - lab[employer] (current) use of insulin Status: Acute (12) Chronic obstructive pulmonary disease: Code(s): J44.9 - Chronic obstructive pulmonary disease, unspecified Status: Chronic (13) Frequent falls: Code(s): R29.6 - Repeated falls Status: Acute (14) Enlarged prostate: Code(s): N40.0 - Benign prostatic hyperplasia without lower urinary tract symptoms Status: Acute (15) Pressure ulcer of left heel, unstageable: Code(s): L89.620 - Pressure ulcer of left heel, unstageable Status: Acute (16) Seizure disorder: Code(s): G40.909 - Epilepsy, unspecified, not intractable, without status epilepticus Status: Acute (17) Pulmonary hypertension: Code(s): I27.20 - Pulmonary hypertension, unspecified Status: Acute DS: Summary Hospital Course Reason for hospitalization: 79yo male with COPD, DM2,HTN, pAFib on chronic anticoagulation with Eliquis, PAD, CARITO, and ESRD on dialysis T/Th/Sat comes in from skilled nursing for weakness and pain all over. Please see H&P for details Hospital Course: Patient with weakness in setting of ESRD and hyperkalemia. BCx positive for Staph capitis in anaerobic bottle felt to be a contaminate. CT Chest showing moderate bilateral pleural effusions and pulmonary edema. Suspect patient with fluid overload resulting in his acute hypoxic resp failure. Less likely PNA. Echo showing EF 60-65% with diastolic dysfunction, RV systolic function reduced, mild valvular disease and severe pulm HTN. [place] he has acute on chronic diastolic CHF. Hx of mild CO2 retention. Weaned to 3L now. BiPAP during the day as needed and continue at night per his reoutine. Nephrology on board. PT/OT ordered. Elevated Trop related to demand ischemia. He denies chest pain. Cardiology following and appreciate their input. Continued ASA and Coreg. Lipitor on hold due to elevated LFTs. Stress test recommended after patient rec overs from his acute process. Patient also with transaminitis. Acetaminophen <10. CT Abd showing mild GB wall thickening and small GS. Viral Hepatitis serologies negative. RUQ US showing mural thickening, edema and hyperemia within the wall of the gallbladder with multiple adherent stones for which acute cholecystitis is suspected. No significant RUQ pain. AST/ALT better. General Surgery consulted and felt less likely patient had cholecystitis. We continued HD per nephrology to control fluid status. Hyperkalemia noted on admission but better after HD. Pleural effusions related to fluid overload and dCHF. Dialysis to control fluid status. He has chronic anemia with Hgb mostly in the 9-10 range but dropped to 7-8 range last month. Hgb on admission 8.8 and remained stable. He received Epoetin. CT Showed marked prostatomegaly. We continued Flomax and Proscar. Patient with pAFIb on [place] which we he per cardiology. Resumed at discharge. Patient has hx of CARITO but does wear CPAP at home. Continued CPAP at night and with naps. He has a history of GI bleeding inJune. Recent EGD and colonoscopy showed AVM. He overall did well and was able to be discharged on 04/28/25. Status at Discharge Cognitive/behavioral status at discharge: Stable Time Spent with Patient Time attestation: Total time spent providing and/or coordinating discharge services: 34 minutes Time spent: Greater than 30 minutes Exam Narrative: AF 98.4 105/48 70 12 99% 3L Gen - NARD Chest - lungs clear anteriorly. nml RR CV - irregularly irregular S1/S2. Tele showing AFib with controlled rate Abd - Soft, NT/ND, Positive BS Ext - No pedal edema. Left upper arm fistula accessed for HD Psych - Nml mood and affect Skin - Warm and dry. right griffin with dried, dark eschar. Right heel with dark eschar DS: Data Data Completed and Pending Labs on day of discharge: Labs from last 24 hours 04/28/25 04/28/25 04/28/25 13:07 07:28 04:15 WBC 6.8 RBC 3.41 L Hgb 8.6 L Hct 30.1 L MCV 88.3 MCH 25.2 L MCHC 28.6 L RDW 18.2 H Plt Count 268 MPV 9.8 Sodium 140 Potassium 4.6 Chloride 94 L Carbon Dioxide 24 Anion Gap 22 H BUN 37 H D Creatinine 6.02 H Estim Creat Clear Calc 9 Estimated GFR 9 L Glucose 187 H POC Capillary Glucose 129 H 184 H Calcium 9.1 Phosphorus 4.1 Magnesium 2.3 Albumin 3.3 L Hep B Core Total Ab 04/27/25 04/27/25 20:55 06:18 WBC RBC Hgb Hct MCV MCH MCHC RDW Plt Count MPV Sodium Potassium Chloride Carbon Dioxide Anion Gap BUN Creatinine Estim Creat Clear Calc Estimated GFR Glucose POC Capillary Glucose 232 H Calcium Phosphorus Magnesium Albumin Hep B Core Total Ab Non-reactive Preliminary micro results at discharge 04/23/25 04:24 Blood Culture - Preliminary Blood Staphylococcus capitis Discharge Plan Discharge Attending physician on discharge: Raoul Wahl Consulting providers: Martina Booth; Anatoly Daly; Rory An; Maurizio Muhammad Discharging Clinician: Raoul Wahl Anticipated Discharge Date/Time: 04/28/25 15:42 Patient Disposition: SNF Activity: as tolerated Diet: renal Discharge Instructions: Please check glucose before meals and before bed. Record for the doctor's review. Call if glucose is <90. Check blood pressure 1 to 2 times a day. Record for the doctor's review. Continue home O2 at 3L. Continue CPAP at night and with naps. Routine wound care to the right griffin and right heel Continue dialysis T/Th/Sat as per his routine schedule Take precautions to avoid falls. The patient is taking both a narcotic and a benzodiazepine. Please have primary provider review medication list to see if this is still appropriate. Rise slowly from a lying or sitting position. Pause before standing or walking. Contact the doctor if the patient has any type of trauma, lightheadedness with standing or other worrisome symptoms. Avoid NSAIDs (ibuprofen, naproxen, Aleve). Tylenol is safe to take. Follow-up with the provider at the facility. Follow-up with General Surgery if having abdominal pain. Follow-up with Cardiology in 1 week to set up a stress test. Follow-up with Nephrology at next sceheduled appointment Thank you for using [facility] for your health care needs. Patient Language: Greenlandic Stand Alone Forms: General Discharge Information Follow-up/Referrals: Rory An MD [Physician] - Call for Appointment Martina Booth MD [Physician] - Call for Appointment Radha Carrion MD [Primary Care Provider] - Other Maurizio Muhammad DO [Physician] - Other (Followup as needed) Discharge Medications: No Action carvedilol 25 mg tablet 25 mg PO BID aspirin 81 mg tablet,delayed release (DR/EC) 81 mg PO DAILY insulin lispro 100 unit/mL insulin pen 4 unit subcut .TIDAC loratadine [Claritin] 10 mg tablet 10 mg PO DAILY insulin glargine [Lantus Solostar U-100 Insulin] 100 unit/mL (3 mL) insulin pen 6 unit subcut HS atorvastatin 20 mg tablet 20 mg PO HS tamsulosin 0.4 mg Capsule 0.4 mg PO QHS Qty: 30 0RF furosemide 80 mg Tablet 80 mg PO BID Qty: 60 0RF finasteride [Proscar] 5 mg Tablet 5 mg PO QAM Qty: 30 0RF bisacodyl [Laxative (bisacodyl)] 10 mg suppository 10 mg RECTAL DAILY PRN (Reason: constipation) Rx Instructions: If no results from the MOM. magnesium citrate [Citroma] Solution 296 ml PO .AM PRN (Reason: constipation) Rx Instructions: If no results after enema. Fleet Enema 19-7 gram/118 mL enema 118 ml RECTAL DAILY PRN (Reason: constipation) Rx Instructions: If no results 1 day after the bisacodyl suppository was administered. gabapentin 100 mg capsule 100 mg PO TID liraglutide 0.6 mg/0.1 mL (18 mg/3 mL) pen injector 1.2 mg subcut HS Rx Instructions: To start on 02/20/25. magnesium hydroxide [Milk of Magnesia] 400 mg/5 mL suspension 30 ml PO HS PRN (Reason: constipation) Rx Instructions: If no bowel movement in 3 days. vitamin B complex Capsule 1 cap PO DAILY amlodipine 10 mg tablet 10 mg PO DAILY cinacalcet 90 mg PO DAILY acetaminophen 325 mg Tablet 650 mg PO Q4H PRN (Reason: Mild Pain (1-3) Or Fever) Qty: 60 0RF melatonin 3 mg tablet 3 mg PO HS tramadol 50 mg tablet 50 mg PO BID Incruse Ellipta 62.5 mcg/actuation blister with device 1 inh inhalation DAILY Combivent Respimat 20-100 mcg/actuation mist 1 puff inhalation Q6H PRN (Reason: shortness of breath or wheezing) loperamide 2 mg capsule 2 mg PO Q4H PRN (Reason: loose stool) Rx Instructions: administer after each loose stool until symptoms controlled; do not exceed 8 mg per 24 hrs levalbuterol HCl 1.25 mg/3 mL Solution For Nebulization 0.63 mg inhalation Q6HRT Qty: 30 0RF sevelamer carbonate 0.8 gram Powder In Packet 0.8 g PO TIDWM Qty: 60 0RF levalbuterol HCl 0.63 mg/3 mL solution for nebulization 0.63 mg inhalation Q6H PRN (Reason: shortness of breath or wheezing) Qty: 90 0RF Eliquis 2.5 mg Tablet 2.5 mg PO Q12HR Qty: 60 0RF pentoxifylline 400 mg tablet extended release 400 mg PO QPM Rx Instructions: must administer with a meal/food Date of admission: 04/23/25 12:27 Primary Care Provider: Radha Carrion Admitting Provider: Raoul Wahl Attending physician on admission: Raoul Wahl Condition: Stable Hospitalist MIPS Heart Failure (Exclusion) Patient has history of Heart Transplant or Left Ventricular Assistive Device?: No IF YES, STOP HERE Heart Failure (Qualifier) Patient has current or prior documentation of LVEF less than or equal to 40%, or mod/servere depressed LVSF?: No IF NO, STOP HERE
== END 2025-04-28 18:03 | DRG 291 ==
LOC: ANHED 08:08 → ANHIMU 09:27
PROVIDERS: Internal Medicine; Admitting Provider Internal Medicine; Emergency Provider Student in an Organized Health Care Education/Training Program; PCP Family Medicine; Visit Provider Internal Medicine
DX: I13.2 Hypertensive heart and chronic kidney disease with heart failure and with stage 5 chronic kidney disease, or end stage renal disease (principal); I50.33 Acute on chronic diastolic (congestive) heart failure; N18.6 End stage renal disease; J96.21 Acute and chronic respiratory failure with hypoxia; I24.89 Other forms of acute ischemic heart disease; R78.81 Bacteremia; D63.1 Anemia in chronic kidney disease; E87.5 Hyperkalemia; E11.22 Type 2 diabetes mellitus with diabetic chronic kidney disease; E11.51 Type 2 diabetes mellitus with diabetic peripheral angiopathy without gangrene; E78.5 Hyperlipidemia, unspecified; G89.29 Other chronic pain; G47.33 Obstructive sleep apnea (adult) (pediatric); G40.909 Epilepsy, unspecified, not intractable, without status epilepticus; I48.0 Paroxysmal atrial fibrillation; I27.20 Pulmonary hypertension, unspecified; I25.10 Atherosclerotic heart disease of native coronary artery without angina pectoris; J44.9 Chronic obstructive pulmonary disease, unspecified; K82.8 Other specified diseases of gallbladder; L89.610 Pressure ulcer of right heel, unstageable; M54.9 Dorsalgia, unspecified; N40.0 Benign prostatic hyperplasia without lower urinary tract symptoms; R74.01 Elevation of levels of liver transaminase levels; R29.6 Repeated falls; Z99.2 Dependence on renal dialysis; Z20.822 Contact with and (suspected) exposure to COVID-19; Z79.82 Long term (current) use of aspirin; Z79.4 Long term (current) use of insulin; Z79.01 Long term (current) use of anticoagulants; Z95.0 Presence of cardiac pacemaker; Z98.41 Cataract extraction status, right eye; Z98.42 Cataract extraction status, left eye; Z96.1 Presence of intraocular lens; Z95.1 Presence of aortocoronary bypass graft; Z90.49 Acquired absence of other specified parts of digestive tract; Z87.891 Personal history of nicotine dependence; Z99.89 Dependence on other enabling machines and devices
CPT/HCPCS: 36415; 71045; 71260; 74177; 76705; 80053; 80069; 80143; 80202; 82140; 82550; 82948; 83605; 83690; 83735; 84100; 84443; 84484; 85025; 85027; 85610; 85730; 86704; 86709; 86803; 87040; 87181; 87637; 87641; 93005; 94002; 94003; 94640; 94762; 96361; 96374; 96375; 97161; 99285; A9270; C8929; G0257; G0378; J1815; J2270; J3373; J7030; Q5105; Q9957; Q9967

== ENCOUNTER 2025-05-11 17:44 | Inpatient (IN) | payer MEDICARE, OTHER, SELFPAY ==
[2025-05-11] VITALS (40 sets, daily range): BP systolic 78–133; BP diastolic 43–84; PULSE 62–76; RESP 10–24; TEMP 36.4–36.6; O2SAT 96–100
--- NOTE | ~2025-05-11 | NM_ITS ---
EXAMINATION: NM bone scan whole body DATE: 05/13/2025 14:48 INDICATION: Metastatic calcification TECHNIQUE: 26.1 mCi Tc-99m HDP was administered intravenously. Delayed whole-body scintigrams were o btained. COMPARISON: CT abdomen pelvis dated 05/11/2025 and chest radiograph dated 05/11/2025 FINDINGS/IMPRESSION: Sagittal oriented photopenic defect of the sternum corresponding to a prior median sternotomy. Otherw ise normal study with physiologic distribution of bone and soft tissue uptake. Reviewed, dictated and finalized at location A.
--- NOTE | ~2025-05-11 | CT_ITS ---
EXAMINATION: CTA abdomen pelvis DATE: 05/11/2025 20:30 INDICATION: active AVM? worse anemia and hypotention TECHNIQUE: Computed tomography angiography of the abdomen and pelvis was performed with 100 mL Omnipa que-350 intravenous contrast in the arterial phase. Automated exposure control and iterative reconstr uction technique were employed. The dose-length product was 930.95 mGy-cm. COMPARISON: 04/23/2025. FINDINGS: Lower thorax: Patchy groundglass opacities. Dependent atelectasis. Small bilateral effusions. Cardiom egaly. Implanted cardiac pacemaker. Coronary artery calcifications. Mitral and aortic valve calcifica tion. Liver: Enlarged. Mild periportal edema. Simple left lobe cyst. Biliary/Gallbladder: Gallbladder wall edema. Cholelithiasis. Inflammatory changes in the min hepati s and surrounding the bile ducts. No definite bile duct dilation, although extra hepatic ducts are so mewhat obscured by inflammatory change. Pancreas: No mass or duct dilation. Spleen: Normal. Adrenals:No mass. Kidneys: Severe bilateral renal atrophy. Simple exophytic right lower pole cyst. Bilateral hypodensit ies are too small to characterize but most likely represent cysts. GI tract: No small or large bowel dilation. Appendix not visualized. Mesentery/Peritoneum: Small volume perihepatic fluid. Retroperitoneum: No mass. Extensive atherosclerotic calcifications. Severe calcified stenoses at the origins of the SMA and bilateral renal arteries. No aneurysm or dissection. Severe calcified stenoses in the bilateral common iliac, internal iliac, common femoral, and superficial femoral arteries montrell candice. Pelvis: Moderate bladder wall thickening with inflammatory change. Marked prostatomegaly. Mild presac ral edema. Soft Tissues: Small uncomplicated fat-containing umbilical and bilateral inguinal hernias. Bones: No acute osseous finding. IMPRESSION: Mild atelectasis/edema in the lung bases. Small bilateral pleural effusions. Hepatomegaly with mild periportal edema and mild perihepatic fluid. Pericholecystic fluid with fluid/ inflammation in the min hepatis and surrounding the extrahepatic bile ducts. Consider hepatitis, ch olecystitis, and cholangitis in the differential. Bladder wall thickening may be secondary to cystitis or chronic outlet obstruction from prostatomegal y. Extensive atherosclerotic disease. Reviewed, dictated and finalized at location K. IMPRESSION: Mild atelectasis/edema in the lung bases. Small bilateral pleural effusions. Hepatomegaly with mild periportal edema and mild perihepatic fluid. Pericholecy stic fluid with fluid/inflammation in the min hepatis and surrounding the ext rahepatic bile ducts. Consider hepatitis, cholecystitis, and cholangitis in the differential. Bladder wall thickening may be secondary to cystitis or chronic outlet obstruct ion from prostatomegaly. Extensive atherosclerotic disease.
--- NOTE | ~2025-05-11 | XR_ITS ---
EXAMINATION: XR chest 1V portable Exam Date/Time: 05/11/2025 19:10 CDT HISTORY: hypotention Comparison: 04/24/2025. RESULT: Lines, tubes, and devices: Left axillary vascular stent. Surgical clips over the proximal left humer us. Multiple fractured sternotomy wires, in stable position. Surgical clips over the mediastinum and GE junction. Electronic device over the cardiac shadow. Lungs and pleura: Peripheral left midlung scar. No focal consolidation, large pleural effusion, or p neumothorax. Cardiomediastinal silhouette: Stable. Other: No acute osseous or upper abdominal finding. IMPRESSION: No acute cardiopulmonary process. Reviewed, dictated and finalized at location K.
[2025-05-11 18:48] LABS: Immature Granulocyte Percent A 0.9 % (0-0.5); Lymphocytes Absolute Auto 0.69 K/mm3 (0.9-3.2); Mean Corpuscular HGB Conc 29.5 g/dl (32-36); Mean Corpuscular Hemoglobin 25.4 pg (26-34); Mean Corpuscular Volume 85.9 fl (80-100); Nucleated Red Blood Cells Absolute Auto 0.000 K/mm3 (0.0-0.012); Nucleated Red Blood Cells Perc 0.0 % (0.0-0.2); Platelet Count Result 310 k/mm3 (150-375); Red Blood Count 2.05 M/mm3 (4.6-6.20); White Blood Count 8.7 K/mm3 (4.5-10.0)
[2025-05-11 18:57] LABS: Hematocrit 17.6 % (42.0-52.0); Hemoglobin 5.2 g/dL (14.0-18.0)
[2025-05-11 19:07] LABS: Schistocytes None Seen
[2025-05-11 19:08] LABS: Alanine Aminotransferase 337 U/L (6-50); Albumin Level 3.4 g/dL (3.5-5.1); Alkaline Phosphatase 58 U/L (38-126); Anion Gap 11 mmol/L (4-12); Aspartate Amino Transferase 417 U/L (17-59); Band Neutrophils Percent 0 % (0-6); Bilirubin,Total 0.3 mg/dL (0.2-1.3); Blood Urea Nitrogen 78 mg/dL (9-20); Calcium 7.9 mg/dL (8.4-10.2); Carbon Dioxide 29 mmol/L (22-30); Chloride 87 mmol/L (98-107); Estimated CRCL calculation 9 ml/min; Estimated Glomerular Filt Rate 10; Glucose 120 mg/dL (65-110); Hypochromasia 1+; Potassium 5.4 mmol/L (3.4-5.0); Sodium 127 mmol/L (137-145); Total Protein 5.7 g/dL (6.3-8.2)
[2025-05-11 19:09] LABS: Anisocytosis 3+
--- NOTE | 2025-05-11 19:09 | ED_ITS ---
HPI - Recheck/Abnormal Lab/Rx General Chief Complaint: Recheck/Abnormal Lab/Rx Stated Complaint: ABN Labs Time Seen by Provider: 05/11/25 19:01 History of Present Illness HPI narrative: 79-year-old male with a past medical history including COPD on 2 L oxygen baseline, DM2, HTN, pAFib on chronic anticoagulation with Eliquis, PAD, CARITO, and ESRD on dialysis T//Sun. Patient presents from his correction facility for concerns of lethargy and abnormal labs. He has a hemoglobin that was low at their facility and previously been in the 8-10 range. He does have a known AVM the did receive cautery with gastroenterology previously. He was recently admitted for generalized weakness and elevated liver enzymes with abnormal CT findings. Patient presents today complaining of some lower abdominal pain as well as feeling weak. He is currently alert oriented x2 which is his reported baseline. Not any acute physical distress but is lethargic in the room requiring stimulation to arouse. When he is awake he is able to answer questions and denies any nausea, vomiting, back pain, chest discomfort. He states he last went to dialysis on Sunday without issue. Endorsing lower abdominal pain but denies any rectal bleeding or blood in his stool to his knowledge. Denies any falls or traumatic injuries. Related Data Home Medications ?Medication ?Instructions ?Recorded ?Confirmed ?Last Taken ?Type aspirin 81 mg tablet,delayed 81 mg PO DAILY 10/31/21 05/12/25 04/22/25 History release carvedilol 25 mg tablet 25 mg PO BID 10/31/21 05/12/25 04/22/25 History insulin lispro 100 unit/mL 4 unit subcut .TIDAC 10/31/21 05/12/25 04/22/25 History subcutaneous pen loratadine 10 mg tablet (Claritin) 10 mg PO DAILY 10/31/21 05/12/25 04/22/25 History insulin glargine 100 unit/mL (3 6 unit subcut 11/07/23 05/12/25 04/22/25 History mL) subcutaneous pen (Lantus Solostar U-100 Insulin) cinacalcet 90 mg PO DAILY 12/12/23 05/12/25 04/22/25 History atorvastatin 20 mg tablet 20 mg PO 12/21/24 05/12/25 04/22/25 History pentoxifylline 400 mg 400 mg PO QPM 01/29/25 05/12/25 04/22/25 History tablet,extended release amlodipine 10 mg tablet 10 mg PO DAILY 02/16/25 05/12/25 04/22/25 History bisacodyl 10 mg rectal suppository 10 mg RECTAL DAILY PRN constipation 02/16/25 05/12/25 Unknown History (Laxative (bisacodyl)) gabapentin 100 mg capsule 100 mg PO TID 02/16/25 05/12/25 04/22/25 History liraglutide 0.6 mg/0.1 mL (18 mg/3 1.2 mg subcut HS 02/16/25 05/12/25 04/22/25 History mL) subcutaneous pen injector magnesium citrate (Citroma oral 296 ml PO .AM PRN constipation 02/16/25 05/12/25 Unknown History solution) magnesium hydroxide 400 mg/5 mL 30 ml PO HS PRN constipation 02/16/25 05/12/25 Unknown History oral suspension (Milk of Magnesia) sodium phosphates 19 gram-7 118 ml RECTAL DAILY PRN 02/16/25 05/12/25 Unknown History gram/118 mL enema (Fleet Enema) constipation vitamin B complex 1 cap PO DAILY 02/16/25 05/12/25 04/22/25 History ipratropium 20 mcg-albuterol 100 1 puff inhalation Q6H PRN 03/10/25 05/12/25 Unknown History mcg/actuation mist for inhalation shortness of breath or wheezing (Combivent Respimat) loperamide 2 mg capsule 2 mg PO Q4H PRN loose stool 03/10/25 05/12/25 Unknown History melatonin 3 mg tablet 3 mg PO HS 03/10/25 05/12/25 04/22/25 History tramadol 50 mg tablet 50 mg PO BID 03/10/25 05/12/25 04/22/25 History umeclidinium 62.5 mcg/actuation 1 inh inhalation DAILY 03/10/25 05/12/25 04/22/25 History blister powder for inhalation (Incruse Ellipta) Allergies Allergy/AdvReac Type Severity Reaction Status Date / Time baclofen Allergy Severe encephalopa Verified 05/12/25 00:25 thy Review of Systems 2 Review of Systems: As reviewed above in HPI PMFSH Past Medical History Medical History (Updated 05/12/25 @ 05:03 by Sam Orozco MD) Pulmonary hypertension AVM (arteriovenous malformation) of colon, acquired with hemorrhage Chronic anticoagulation Insulin dependent type 2 diabetes mellitus (~2009) Chronic obstructive pulmonary disease Diabetic polyneuropathy Coronary artery disease Anemia Atrial fibrillation Chronic neck and back pain Insomnia History of nephrolithiasis Sinus pause (~09/2024) Obstructive sleep apnea Intolerant to CPAP Benign prostatic hyperplasia Peripheral vascular disease (~03/2023) Internal hemorrhoid, bleeding End-stage renal disease on hemodialysis DVT dialysis Sunday History of colon polyps Environmental allergies Vitamin D deficiency Dyslipidemia Essential (primary) hypertension Surgical History Surgical History History of cardiac pacemaker (~10/2024) Medtronic pacemaker placed due to symptomatic sinus pauses causing syncope performed at [facility] Status post cataract extraction of both eyes with insertion of intraocular lens History of colonoscopy with polypectomy History of hemorrhoidectomy (~01/12/24) Anorectal evaluation under anesthesia and excisional hemorrhoidectomy x3 12/14/23 SAW S/P peripheral artery angioplasty (~03/2023) status post balloon angioplasty of bilateral common and external iliac arteries status post left iliofemoral endarterectomy Arteriovenous fistula of left upper extremity (~2017) History of appendectomy (~1962) History of coronary artery bypass graft (~2013) Family History Family History Mother Diabetes mellitus Acute myocardial infarction Family history of congestive heart failure Father Hypertension Social History Social History Social History: The patient is . He and his brother live together prior to his hospitalization November or December 2024 and subsequent placement in to [facility]. He is retired after 26 years of serving in the [employer]. He has 4 children. He used to smoke 1.5-2 packs of cigarettes per day but quit smoking in approximately 2009. He will on a rare occasion drink an alcoholic beverage maybe 2 to 3 times a year. He denies illicit substance use. Surrogate medical decision maker: Wilian Morrissey, sibling. Code status: Full code. Caffeine- daily Smoking packs per day: 1.5 Smoking cigarettes per day: 30.0 Years smoked: 44 Smoking pack-years: 66.00 Smoking status: Former smoker Second hand tobacco smoke exposure: No Alcohol intake: unknown Alcohol use details: Maybe 2-3 per year Substance use: never Substance use type: does not use Do You Feel Safe in your Home?: Yes Lack of Transportation: No Lack of Food: Never True Current Housing: I Have Housing Concerned About Future Housing: No Difficulty Paying Gas/Electric Bills: No Difficulty Paying for Meds: No Currently Unemployed: No Education: Don't Know Difficulty w/ Childcare or Family Care: No Living arrangements: with family Occupation/Education: retired Additional occupation/education comments: Retired from the [employer]. 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 Spiritual care concerns: No Agree to blood products: Yes Exam 2 Narrative: GENERAL: Acutely ill-appearing and lethargic but arousable with stimulation. Not any acute respiratory distress HEAD: Normocephalic EYES: Pupils are equal reactive, pale conjunctiva ENT: Nares clear, no rhinorrhea or epistaxis. Mucous membranes dry. NECK: Supple. CHEST: [Clear to auscultation. No respiratory distress.] HEART: [Regular rate and rhythm]. No murmur heard. 2+ peripheral pulses, left- sided AV fistula with palpable thrill ABDOMEN: [Soft, nondistended], reproducible tenderness to palpation lower abdominal quadrants, [No rigidity or guarding] EXTREMITIES: Normal range of motion. Mild pitting edema SKIN: Warm, dry, no rash. NEURO: Moving all extremities without any focal deficits. Alert and oriented x2 which is reported baseline, lethargic requiring stimulation, but arousable and converses PSYCH: Normal mood Course Vital Signs Vital signs: Vital Signs Temperature 36.6 C 05/11/25 17:49 Pulse Rate 72 05/11/25 17:49 Respiratory Rate 22 H 05/11/25 17:49 Blood Pressure 98/55 L 05/11/25 17:49 Pulse Oximetry 99 05/11/25 17:49 Oxygen Delivery Room Air 05/11/25 17:49 Temperature 36.3 C L 05/12/25 04:00 Pulse Rate 64 05/12/25 04:00 Respiratory Rate 16 05/12/25 04:00 Blood Pressure 112/63 05/12/25 04:00 Pulse Oximetry 98 05/12/25 04:00 Oxygen Delivery Nasal Cannula 05/12/25 00:00 Oxygen Flow Rate 2 05/12/25 00:00 Procedures Central Line Placement Right Femoral: Central Line Date: 05/11/25 Central Line Time: 18:39 Performed Emergently - Given emergent patient condition, temporal constraints may have precluded informed consent.: Yes Time Out Performed: Yes Patient Placed on Monitor/Pulse Ox: Yes Max. Sterile Barrier Technique: Caps, large sterile sheet and hand hygiene Central Line Prep: 2% chlorhexidine scrub and sterile drapes applied Technique: US-Guided Local Anesthetic: lidocaine 1% Amount of anesthesia used (mL): 5 Ultrasound Used for Placement: Yes Central Line Lumen Inserted: triple Post Procedure: sutured in place, good blood return, all ports aspirated, flushed, capped and sterile dressing applied Patient Tolerated Procedure: well and no complications Complications: none MDM - Recheck/Abnormal Lab/Rx MDM Narrative Medical decision making narrative: 79-year-old male with a past medical history including COPD on 2 L oxygen baseline, DM2, HTN, pAFib on chronic anticoagulation with Eliquis, PAD, CARITO, and ESRD on dialysis T//Sun. Patient presents from his correction facility for concerns of lethargy and abnormal labs. He has a hemoglobin that was low at their facility and previously been in the 8-10 range. He does have a known AVM the did receive cautery with gastroenterology previously. He was recently admitted for generalized weakness and elevated liver enzymes with abnormal CT findings. Patient presents today complaining of some lower abdominal pain as well as feeling weak. He is currently alert oriented x2 which is his reported baseline. Not any acute physical distress but is lethargic in the room requiring stimulation to arouse. When he is awake he is able to answer questions and denies any nausea, vomiting, back pain, chest discomfort. He states he last went to dialysis on Sunday without issue. Endorsing lower abdominal pain but denies any rectal bleeding or blood in his stool to his knowledge. Denies any falls or traumatic injuries. Patient is lethargic appearance, pale with pale conjunctiva and generally ill appearing. He is saturating 96% on his 2 L nasal cannula baseline and afebrile but is tachypneic. No tachycardia with his blood pressure is low at 80 8/58. 150 EMR patient blood pressures normally run in the 120s and in the setting of low hemoglobin and concern for active GI bleed this could be representing hemorrhagic shock, intravascular depletion and dehydration, hypovolemia from too much fluid removal during dialysis yesterday, vaso plegia from infectious pathology or less likely sepsis. Blood cultures were obtained, lactic acid drawn, repeat laboratory studies obtained today. EKG and chest x-ray ordered. CT abdomen pelvis with angiography phase was ordered to rule out active AVM bleed as his hemoglobin came back low at 5.2. He was given 2 units of typed and crossed blood cells as well as a fluid bolus. Placed on nurse monitoring and frequently re-evaluated. On review of the EMR patient had CT scan and ultrasound of the abdomen last month that shows suspicion for acute cholecystitis. He was seen by General surgery on inpatient basis but per notes felt like this was not cholecystitis related. Vancomycin and Zosyn started in case this is septic shock from cholecystitis seen recently during hospital visit 2 weeks ago. He was given a L of fluid and re-evaluated addition to the blood products to prevent fluid overload as he is tenuous with his volume status with recently seen pleural effusions and body wall edema, volume overload during hospital visit. Patient may require full 30 cc/kg bolus for septic bundle but we will re-evaluate after initial fluids to see his response. Patient had persistently low blood pressures despite initiation of blood products and fluids. He was given full 30 cc/kg bolus an additional blood products. Right femoral central access was placed under ultrasound guidance for hemodynamic instability and started on norepinephrine. Patient re-evaluated his mental status is improving and he is left lethargic. Patient's remaining laboratory studies show no leukocytosis or platelet concerns. Chemistry panel shows minor hyperkalemia 5.4, BUN and creatinine reflective end-stage renal disease, low sodium and chloride likely dehydration. Lactic acid is negative. LFTs persistently elevated in 400 range, slightly worse than previous. T bili 0.3. Chest x-ray shows no acute cardiopulmonary process. CT angiography interpreted by Radiology shows periportal edema, perihepatic fluid, fluid inflammation in the min hepatis and surrounding extrahepatic bile ducts as well as gallbladder wall edema and cholelithiasis but no obvious obstructing stones. Differential remains hepatitis, cholecystitis and cholangitis. Favoring cholangitis given patient's presentation with altered mental status, worsening liver function panel and signs of septic shock. Patient was sent out to General surgery and I spoke to Dr. Muhammad regarding patient's presentation. Patient will need additional resuscitation and is still poor surgical candidate but will be evaluated by surgery on inpatient basis. Spoke to the ICU Dr. Santana was accepted him to the ICU after we went over patient's clinical exam, response to blood products fluids, antibiotic status and general surgery evaluation recommendations. Spoke to my hospitalist Dr. Leo who also accepted the patient to the ICU but added on additional recommendations for DIC workup with D-dimer and fibrinogen level which were ordered. Patient re-evaluated once again and doing well, blood pressure has improved to 110/64 on norepinephrine and after blood products have been initiated, fluid boluses given. ICU admission orders placed and patient was transferred upstairs without further events. Medical Records Attestation: I reviewed the patient's medical records. Lab Data Attestation: I reviewed the patient's lab results. 05/11/25 18:39 05/11/25 18:39 Labs: Lab Results 05/11/25 05/11/25 Range/Units 18:39 19:19 WBC 8.7 (4.5-10.0) K/mm3 RBC 2.05 L (4.6-6.20) M/mm3 Hgb 5.2 L* D (14.0-18.0) g/dL Hct 17.6 L* (42.0-52.0) % MCV 85.9 (80-100) fl MCH 25.4 L (26-34) pg MCHC 29.5 L (32-36) g/dl RDW 21.2 H (11.5-14.5) % Plt Count 310 (150-375) k/mm3 MPV 10.9 H (7.4-10.4) fl Immature Gran % (Auto) 0.9 H (0-0.5) % Neut % (Auto) 81.3 H (45.5-73.1) % Lymph % (Auto) 8.0 L (18.3-44.2) % [place] % (Auto) 9.5 H (2.6-8.5) % Eos % (Auto) 0.1 (0-4.4) % Baso % (Auto) 0.2 (0.2-1.2) % Lymph # (Auto) 0.69 L (0.9-3.2) K/mm3 [place] # (Auto) 0.8 H (0.1-0.6) K/mm3 Eos # (Auto) 0.0 (0-0.3) K/mm3 Baso # (Auto) 0.0 (0.0-0.1) K/mm3 Abs Immat Gran (auto) 0.08 H (0.00-0.031) K/mm3 Absolute Neuts (auto) 7.0 H (1.3-6.7) K/mm3 Absolute Nucleated RBC 0.000 (0.0-0.012) K/mm3 Band Neutrophils % 0 (0-6) % Nucleated RBC % 0.0 (0.0-0.2) % Platelet Estimate Adequate (Adequate) Hypochromasia 1+ Anisocytosis 3+ Schistocytes None seen PT 23.2 H (11.1-14.7) Seconds INR 2.1 APTT 37.8 H (22.3-36.8) Seconds Fibrinogen 341 (215-510) mg/dl D-Dimer 1.07 H (<0.48) ug/mL Sodium 127 L (137-145) mmol/L Potassium 5.4 H (3.4-5.0) mmol/L Chloride 87 L (98-107) mmol/L Carbon Dioxide 29 (22-30) mmol/L Anion Gap 11 (4-12) mmol/L BUN 78 H D (9-20) mg/dL Creatinine 5.57 H (0.7-1.3) mg/dL Estim Creat Clear Calc 9 ml/min Estimated GFR 10 L (59 - ) Glucose 120 H (65-110) mg/dL Lactic Acid 1.5 (0.7-2.0) mmol/L Calcium 7.9 L (8.4-10.2) mg/dL Magnesium 2.2 (1.6-2.3) mg/dL Total Bilirubin 0.3 (0.2-1.3) mg/dL AST 417 H (17-59) U/L ALT 337 H (6-50) U/L Alkaline Phosphatase 58 (38-126) U/L Total Protein 5.7 L (6.3-8.2) g/dL Albumin 3.4 L (3.5-5.1) g/dL Blood Type O Positive Antibody Screen Negative Crossmatch See Detail Imaging Data Attestation: I personally reviewed and interpreted this imaging study as follows: My impression: Impressions Chest X-Ray 05/11/25 19:41 IMPRESSION: No acute cardiopulmonary process. Abdomen/Pelvis CTA 05/11/25 20:52 IMPRESSION: Mild atelectasis/edema in the lung bases. Small bilateral pleural effusions. Hepatomegaly with mild periportal edema and mild perihepatic fluid. Pericholecystic fluid with fluid/inflammation in the min hepatis and surrounding the extrahepatic bile ducts. Consider hepatitis, cholecystitis, and cholangitis in the differential. Bladder wall thickening may be secondary to cystitis or chronic outlet obstruction from prostatomegaly. Extensive atherosclerotic disease. Critical Care Time Critical Care Time Critical Care Time: Yes Total Critical Care Time: 75 (Critical care time is exclusive of the separately billed procedures above) Discharge Plan Discharge Clinical Impression: Shock circulatory, Chronic anticoagulation, AVM (arteriovenous malformation) of colon, acquired with hemorrhage, Abdominal pain, Transaminitis, ESRD on dialysis, Acute cholecystitis, Acute cholangitis, Acute on chronic blood loss anemia, Anemia requiring transfusions Patient Disposition: Still a Patient Condition: Critical
--- OUTSIDE RECORDS SUMMARY | 2025-05-11 19:11 | XMS_ITS | Encounter Summary ---
Author Organization [facility] Health Address [address] [place] [address] Care Team Providers Care Data Entry Operator Name Role Phone Mariza Carrion MD Primary Care Provider Encounter Details Date Type Department Care Team (Late Contact Info) Description 06/03/2018 [facility] Outpatient Visit [facility] [address] [place] [address] [place] [id number] 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
--- OUTSIDE RECORDS SUMMARY | 2025-05-11 19:11 | XMS_ITS ---
Author Organization [facility] Address [address] [place] [id number] Care Team Providers Care Law Examiner Name Role Phone Efren Hoyos MD Unavailable Dank Hicks MD Unavailable [phone] Mariza Carrion MD Primary Care Provider Dialysis Access Sites Type Status Location Placement Date Removal Da te AV fistula Active Left Upper Arm - Anterior AV fistula Inactive 10/23/2024 Procedures Procedure Name Priority Date/Time Associated Diagnosis Comments CARDIOLOGY DOCUMENT SCAN Routine 04/27/2025 3:08 PM CDT CARDIOLOGY DOCUMENT SCAN Routine 04/26/2025 3:05 PM CDT CARDIOLOGY DOCUMENT SCAN Routine 04/25/2025 3:03 PM CDT CARDIOLOGY DOCUMENT SCAN Routine 04/24/2025 2:49 PM CDT POCT HEMOGLOBIN A1C Routine 11/24/2024 10:01 AM RETAIL SEASONAL SPECIALIST Type 2 diabetes mellitus with hyperglycemia, with long-term current use of insulin (CMS/HCC) EGFR Routine 10/25/2024 5:48 AM RETAIL SEASONAL SPECIALIST HEPATITIS PANEL, ACUTE Routine 10/23/2024 2:45 PM RETAIL SEASONAL SPECIALIST HM DIABETES EYE EXAM Routine 08/13/2024 9:40 AM CDT ALBUMIN CREATININE RATIO, URINE Routine 03/10/2024 8:46 AM CDT Type 2 diabetes mellitus with hyperglycemia, with long-term current use of insulin (CMS/HCC) LIPID PANEL Routine 03/03/2024 9:29 AM CDT Type 2 diabetes mellitus with hyperglycemia, with long-term current use of insulin ([facility]) Hyperlipidemia associated with type 2 diabetes mellitus (HCC) CT ABDOMEN PELVIS WO CONTRAST Schedule Routine, Read Routine (OP Routine) 12/05/2021 11:53 AM RETAIL SEASONAL SPECIALIST End stage renal disease (HCC) from [...] hyperglycemia, with long-term current use of insulin ([facility]) Use to test glucose 5 times daily 450 each 2 04/03/20 18 Active lancets (freestyle) 28 gauge miscIndications:T ype 2 diabetes mellitus with hyperglycemia, with long-term current use of insulin ([facility]) Use to test glucose 5 [...] hyperglycemia, with long-term current use of insulin ([facility]) Change sensor every 14 days [...] 12/09/2019 Assessment & Plan (09/03/2023 9:28 AM RETAIL SEASONAL SPECIALIST): Chronic problem. [facility] [place]: //Saturdays. LUE fistula. Assessment & Plan (03/05/2023 9:59 AM CDT): Chronic problem. [facility] [place]: /Saturdays. LUE fistula. Hyperlipidemia associated with type 2 diabetes fouzia victoria 05/22/2019 Assessment & Plan (11/24/2024 10:10 AM RETAIL SEASONAL SPECIALIST): Chronic problem. Controlled on current Atorvastatin 20mg. Last lipid panel: 03/03/24 LDL=33, TG=75. Assessment & Plan (03/03/2024 8:45 AM CDT): Chronic problem. Controlled on current Atorvastatin 20mg. Last lipid panel: 03/05/23 LDL=57, EZ=532. Will update labs today. Does not mychart. Verified phone #/address to contact re: results. Assessment & Plan (09/03/2023 9:28 AM RETAIL SEASONAL SPECIALIST): Chronic problem. Controlled on current Atorvastatin 20mg. Last lipid panel: 03/05/23 LDL=57, GL=505. Assessment & Plan (03/05/2023 9:53 AM CDT): Chronic problem. Controlled on current Atorvastatin 20mg. Last lipid panel: 12/05/21 LDL=36, LI=448. Will update labs today. Verified phone #/address to contact re: results. Assessment & Plan (11/02/2022 2:47 PM RETAIL SEASONAL SPECIALIST): Chronic, well controlled Low fat Low [...] Lipitor Assessment & Plan (09/07/2020 2:26 PM RETAIL SEASONAL SPECIALIST): Goal of treatment , LDL cholesterol [...] panel Assessment & Plan (12/09/2019 2:03 PM RETAIL SEASONAL SPECIALIST): Very high TG Add Vascepa Assessment [...] statin therapy Coronary artery disease invo [place]ving [place] coronary artery of [place] heart without angina pectoris 10/04/2017 Hx of CABG 10/04/2017 Class 2 severe obesity due t o excess calories with serious comorbidity and body mass index (BMI) of 38.0 to 38.9 in adult 05/22/2017 Assessment & Plan (10/24/2018 12:58 PM RETAIL SEASONAL SPECIALIST): Making progress with diet efforts. Continue Assessment & Plan (02/08/2018 11:01 AM CDT): Importance of following diet and exercising discussed. Hypertension associated with diabetes 05/22/2017 Assessment & Plan (11/24/2024 10:11 AM RETAIL SEASONAL SPECIALIST): Chronic problem. Controlled on current losartan 100mg daily, amlodipine 10mg daily Assessment & Plan (03/03/2024 8:45 AM CDT): Chronic problem. BP elevated upon arrival. Controlled on current Carvedilol 25mg bid, losartan 100mg daily. No changes at this time. Will update labs today. Does not mychart. Verified phone #/address to contact re: results. Assessment & Plan (09/03/2023 9:28 AM RETAIL SEASONAL SPECIALIST): Chronic problem. BP elevated upon arrival. [...] renal Assessment & Plan (10/24/2018 12:57 PM RETAIL SEASONAL SPECIALIST): Controlled. Continue current medication plan and follow up with cardiology Assessment & Plan (06/18/2018 2:30 PM CDT): BP controlled on current medication plan. Continue follow up with nephrology Assessment & Plan (02/08/2018 11:00 AM CDT): Continue same medication Assessment & Plan (12/11/2017 10:24 AM RETAIL SEASONAL SPECIALIST): Goal blood pressure is less than [...] mellitus Assessment & Plan (11/24/2024 10:16 AM RETAIL SEASONAL SPECIALIST): Chronic problem, controlled on current regimen. 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 Assessment & Plan (09/03/2023 9:27 AM RETAIL SEASONAL SPECIALIST): Chronic problem, controlled on current regimen. 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 Assessment & Plan (03/05/2023 10:13 AM CDT): Chronic problem, controlled on current regimen. 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 Will update labs today. Verified phone #/address to contact re: results. Assessment & Plan (11/02/2022 2:43 PM RETAIL SEASONAL SPECIALIST): Well controlled, with risk of hypoglycemia [...] Ross Assessment & Plan (09/07/2020 2:26 PM RETAIL SEASONAL SPECIALIST): Hba1c was Lab Results Component Value [...] Trulicity. Assessment & Plan (12/09/2019 2:03 PM RETAIL SEASONAL SPECIALIST): Your Hba1c today was: Lab Results Component Value Date HGBA1C 9.3 12/09/2019 meaning a 3 month average sugar of : 224 Your goal hba1c is under 7.0 to prevent assisted diabetes complications ( eye , kidney and [...] hypoglycemia. Assessment & Plan (10/24/2018 1:00 PM RETAIL SEASONAL SPECIALIST): Stable BG pattern 100-140 reported since last adjustment to plan. No change today. BG goals reviewed. Advised to lower Lantus by 2 units if FBG are < 100 x 2 days/wk. For planned activity, reduce Humalog dose by 1/2 at preceding meal. Assessment & Plan (09/19/2018 11:11 AM RETAIL SEASONAL SPECIALIST): Your Hba1c today was: Lab Results Component Value Date HGBA1C 5.1 09/19/2018 meaning a 3 month average sugar of : 81 Your goal hba1c is under 7.0 to prevent assisted diabetes complications ( eye , kidney and [...] time. Assessment & Plan (12/11/2017 10:47 AM RETAIL SEASONAL SPECIALIST): Hba1c was .5.4 Today, 1800 calorie, [...] drink = 0.6 oz pur e alcohol) [facility] Utilities Answer Date Recorded In the past 12 months has [employer], gas, oil, or water [employer] threatened to shut off services in your [...] often do you attend chur ch or synagogue services? Never 10/23/2024 Do you belong to any clubs o r organizations such as roman catholic groups, unions, fraternal or athletic groups, or [...] in the past 12 m [facility], were you homeless or living in a long term (including now)? No 10/23/2024 Personal Safety Answer Date Recorded Have you ever been in or are you currently in a harmful physical or emotional relationship or is someone making you feel afraid or unsafe? Denies 10/22/2024 Sex and Gender Information Value Date Recorded Sex Assigned at Not on file Legal Sex Male 7:27 PM RETAIL SEASONAL SPECIALIST Gender Identity Not on file Sexual Orientation Not on file Last Filed Vital Signs Vital Sign Reading Time Taken Comments Blood Pressure 102/58 11/24/2024 9:58 AM RETAIL SEASONAL SPECIALIST Pulse 75 11/24/2024 9:58 AM RETAIL SEASONAL SPECIALIST Temperature 36.3 C (97.3 F) 10/25/2024 2:15 PM RETAIL SEASONAL SPECIALIST Respiratory Rate 20 11/24/2024 9:58 AM RETAIL SEASONAL SPECIALIST Oxygen Saturation 100% 10/25/2024 1:15 PM RETAIL SEASONAL SPECIALIST Inhaled Oxygen Concentration - - Weight 91.3 kg (201 lb 4.5 oz) 10/22/2024 8:29 P M RETAIL SEASONAL SPECIALIST Height 170.2 cm (5' 7.01) 11/24/2024 9:58 AM CS T Body Mass Index 31.52 10/22/2024 8:29 PM RETAIL SEASONAL SPECIALIST Results * Cardiology Document Scan (04/27/2025 3:08 PM CDT) Anatomical Region Laterality Modality Other Result [facility] Hyacinth Fox MD CV CARDIAC SERVICES PROCEDU RES Final Result * Cardiology Document Scan (04/26/2025 3:05 PM CDT) Anatomical Region Laterality Modality Other Result [facility] Rory An MD CV CARDIAC SERVICES PROCEDU RES Final Result * Cardiology Document Scan (04/25/2025 3:03 PM CDT) Anatomical Region Laterality Modality Other Result [facility] Rory An MD CV CARDIAC SERVICES PROCEDU RES Final Result * Cardiology Document Scan (04/24/2025 2:49 PM CDT) Anatomical Region Laterality Modality Other Rory An MD CV CARDIAC SERVICES PROCEDU RES Final Result * POCT hemoglobin A1c (11/24/2024 10:01 AM RETAIL SEASONAL SPECIALIST) Hemoglobin A1C, POC 4.9 4.0 - 5.6 % Blood 11/24/2024 10:0 1 AM RETAIL SEASONAL SPECIALIST Bertha Pinto NP POINT OF CARE TEST ORDERA BLES Final Result * (ABNORMAL) eGFR (10/25/2024 5:48 AM RETAIL SEASONAL SPECIALIST) eGFR 9(L) >=60 mL/min/1. 73 m2 Comment: [...] last reviewed 2021. Blood 10/25/2024 5:48 AM RETAIL SEASONAL SPECIALIST 10/25/2024 6:03 AM RETAIL SEASONAL SPECIALIST us Raisa Scherer NP LAB BLOOD ORDERABLES Jeaneth l Result [facility] [id number] Department [place] [address] * Hepatitis panel, acute Blood (10/23/2024 2:45 PM RETAIL SEASONAL SPECIALIST) Hep A IgM Nonreactive Nonreactive Comment: [...] [facility] Blood 10/23/2024 2:45 PM RETAIL SEASONAL SPECIALIST 10/23/2024 2:46 PM RETAIL SEASONAL SPECIALIST Sherrill Christianson MD LAB MICROBIOLOGY - GENERAL ORDERABLES Final Result Performing Organization Address [facility] Co de Phone Number [facility] [id number] [place] [address] * (ABNORMAL) DIABETES EYE EXAM (08/13/2024 9:40 AM CDT) Historical Provider HEALTH MAINTENANCE Edited Result - Final * (ABNORMAL) Albumin Creatinine Ratio, Urine (03/10/2024 8:46 AM CDT) Albumin Ur 3,169.5 mg/L Comment: Interpretive Data No reference range established. Current interpretive data was last revised 2019. Creatinine Ur 47.7 mg/dL [facility] Comment: Interpretive Data No reference range established. Current interpretive data was last revised 2019. Albumin Creatinine Ratio, Ur 6,645(H) 1 - 29 mg/g [facility] Urine 03/10/2024 8:46 AM CDT 03/11/2024 9:11 AM CDT Bertha Pinto NP LAB URINE ORDERABLES Jeaneth l Result Performing Organization Address [facility] Co de Phone Number [facility] [id number] Department [place] [address] * (ABNORMAL) Lipid panel (03/03/2024 9:29 AM [...] 03/03/2024 4:40 PM CDT us Bertha Pinto MAINTENANCE WORKER LAB BLOOD ORDERABLES Jeaneth l Result [facility] [id number] Department [place] [address] * CT Abdomen Pelvis WO Contrast (12/05/2021 11:53 AM RETAIL SEASONAL SPECIALIST) Anatomical Region Laterality Modality Body N/A Computed Tomogra phy 12/05/2021 12:0 4 PM RETAIL SEASONAL SPECIALIST Impressions 12/05/2021 12:04 PM RETAIL SEASONAL SPECIALIST Bone windows show no suspicious lytic or blastic lesions. IMPRESSION: 1. 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 2. 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 Electronically signed by: Ryan Cameron M.D. Narrative 12/05/2021 12:04 PM RETAIL SEASONAL SPECIALIST EXAMINATION: Computed tomography of the abdomen/pelvis [...] adeniform shape. There is atrophy of both [place] kidneys. Adjacent fat stranding is likely [...] adeniform shape. There is atrophy of both [place] kidneys. Adjacent fat stranding is likely [...]
--- OUTSIDE RECORDS SUMMARY | 2025-05-11 19:13 | XMS_ITS | Referral Summary ---
Author Organization [facility] Address [address] [place] [phone] Care Team Providers Care School Operations Manager Name Role Phone Efren Hoyos MD Unavailable Dank Hicks MD Unavailable [phone] Mariza Carrion MD Primary Care Provider Encounters Date Type Department Care Team Description 04/28/2025 Orders Only [facility] Card[facility] [address] [facility] [address] [place] [phone] Rory An MD 04/28/2025 Telephone [facility] Card[facility] [address] [facility] [address] [place] [phone] Dank Hicks MD 04/22/2025 9:45 AM CDT Ancillary Procedure [facility] Cardiology [address] [place] [address] [place] [phone] Cardiac pacemaker in situ; Asystole (HCC); Syncope and collapse; Symptomatic bradycardia from Last 3 Months Allergies No known [...] hyperglycemia, with long-term current use of insulin ([facility]) Use to test glucose 5 times daily 450 each 2 04/03/20 18 Active lancets (freestyle) 28 gauge miscIndications:T ype 2 diabetes mellitus with hyperglycemia, with long-term current use of insulin ([facility]) Use to test glucose 5 [...] hyperglycemia, with long-term current use of insulin ([facility]) Change sensor every 14 days [...] hyperglycemia, with long-term current use of insulin ([facility]) Inject 0.5ML(1.5MG total) under the [...] hyperglycemia, with long-term current use of insulin ([facility]) Use to inject insulin 4x/day [...] Bradycardia, Sinus Arrest, Syncope. DOI 10/24/2024-Ramadan. Patricia. Ricklink remote. Glaucoma 10/23/2024 Benign prostatic hyperplasia without lower urinary tract symptoms 10/23/2024 Asystole 10/23/2024 Syncope and collapse 10/22/2024 ESRD on hemodialysis 12/09/2019 Assessment & Plan (09/03/2023 9:28 AM [facility]): Chronic problem. [facility] [place]: //Saturdays. LUE fistula. Assessment & Plan (03/05/2023 9:59 AM CDT): Chronic problem. [facility] [place]: //Saturdays. LUE fistula. Hyperlipidemia associated with type 2 diabetes fouzia victoria 05/22/2019 Assessment & Plan (11/24/2024 10:10 AM [facility]): Chronic problem. Controlled on current Atorvastatin 20mg. Last lipid panel: 03/03/24 LDL=33, TG=75. Assessment & Plan (03/03/2024 8:45 AM CDT): Chronic problem. Controlled on current Atorvastatin 20mg. Last lipid panel: 03/05/23 LDL=57, UM=134. Will update labs today. Does not mychart. Verified phone #/address to contact re: results. Assessment & Plan (09/03/2023 9:28 AM [facility]): Chronic problem. Controlled on current Atorvastatin 20mg. Last lipid panel: 03/05/23 LDL=57, RA=365. Assessment & Plan (03/05/2023 9:53 AM CDT): Chronic problem. Controlled on current Atorvastatin 20mg. Last lipid panel: 12/05/21 LDL=36, XQ=138. Will update labs today. Verified phone #/address to contact re: results. Assessment & Plan (11/02/2022 2:47 PM [facility]): Chronic, well controlled Low fat Low cholesterol [...] Lipitor Assessment & Plan (09/07/2020 2:26 PM [facility]): Goal of treatment , LDL cholesterol less [...] panel Assessment & Plan (12/09/2019 2:03 PM [facility]): Very high TG Add Vascepa Assessment & [...] statin therapy Coronary artery disease invo lving [place] coronary artery of [place] heart without angina pectoris 10/04/2017 Hx of CABG 10/04/2017 Class 2 severe obesity due t o excess calories with serious comorbidity and body mass index (BMI) of 38.0 to 38.9 in adult 05/22/2017 Assessment & Plan (10/24/2018 12:58 PM [facility]): Making progress with diet efforts. Continue Assessment & Plan (02/08/2018 11:01 AM CDT): Importance of following diet and exercising discussed. Hypertension associated with diabetes 05/22/2017 Assessment & Plan (11/24/2024 10:11 AM [facility]): Chronic problem. Controlled on current losartan 100mg daily, amlodipine 10mg daily Assessment & Plan (03/03/2024 8:45 AM CDT): Chronic problem. BP elevated upon arrival. Controlled on current Carvedilol 25mg bid, losartan 100mg daily. No changes at this time. Will update labs today. Does not mychart. Verified phone #/address to contact re: results. Assessment & Plan (09/03/2023 9:28 AM [facility]): Chronic problem. BP elevated upon arrival. Controlled [...] renal Assessment & Plan (10/24/2018 12:57 PM [facility]): Controlled. Continue current medication plan and follow up with cardiology Assessment & Plan (06/18/2018 2:30 PM CDT): BP controlled on current medication plan. Continue follow up with nephrology Assessment & Plan (02/08/2018 11:00 AM CDT): Continue same medication Assessment & Plan (12/11/2017 10:24 AM [facility]): Goal blood pressure is less than 140/85 [...] mellitus Assessment & Plan (11/24/2024 10:16 AM [facility]): Chronic problem, controlled on current regimen. 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 Assessment & Plan (09/03/2023 9:27 AM [facility]): Chronic problem, controlled on current regimen. 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 Assessment & Plan (03/05/2023 10:13 AM CDT): Chronic problem, controlled on current regimen. 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 Will update labs today. Verified phone #/address to contact re: results. Assessment & Plan (11/02/2022 2:43 PM [facility]): Well controlled, with risk of hypoglycemia Insuli [...] Ross Assessment & Plan (09/07/2020 2:26 PM [facility]): Hba1c was Lab Results Component Value Date [...] Trulicity. Assessment & Plan (12/09/2019 2:03 PM [facility]): Your Hba1c today was: Lab Results Component [...] hypoglycemia. Assessment & Plan (10/24/2018 1:00 PM [facility]): Stable BG pattern 100-140 reported since last adjustment to plan. No change today. BG goals reviewed. Advised to lower Lantus by 2 units if FBG are < 100 x 2 days/wk. For planned activity, reduce Humalog dose by 1/2 at preceding meal. Assessment & Plan (09/19/2018 11:11 AM [facility]): Your Hba1c today was: Lab Results Component [...] time. Assessment & Plan (12/11/2017 10:47 AM [facility]): Hba1c was .5.4 Today, 1800 calorie, consistent [...] 05/22/2019 Assessment & Plan (09/19/2018 11:20 AM [facility]): Prevention and treatment of hypoglycemia were discussed [...] therapy Assessment & Plan (10/24/2018 12:57 PM [facility]): Check lipid panel Assessment & Plan (06/18/2018 2:31 PM CDT): Continue statin therapy Assessment & Plan (02/08/2018 11:00 AM CDT): Continue atorvastatin Assessment & Plan (12/11/2017 10:45 AM [facility]): Goal of treatment , LDL cholesterol less [...] drink = 0.6 oz pur e alcohol) [employer] Answer Date Recorded In the past 12 months has [employer], gas, oil, or water [employer] threatened to shut off services in your [...] often do you attend chur ch or scientology services? Never 10/23/2024 Do you belong to any clubs o r organizations such as christian groups, unions, fraternal or athletic groups, or [...] any time in the past 12 m [facility], were you homeless or living [...] on file Legal Sex Male 7:27 PM [facility] Gender Identity Not on file Sexual Orientation Not on file Last Filed Vital Signs Vital Sign Reading Time Taken Comments Blood Pressure 102/58 11/24/2024 9:58 AM [facility] Pulse 75 11/24/2024 9:58 AM [facility] Temperature 36.3 C (97.3 F) 10/25/2024 2:15 PM [facility] Respiratory Rate 20 11/24/2024 9:58 AM [facility] Oxygen Saturation 100% 10/25/2024 1:15 PM [facility] Inhaled Oxygen Concentration - - Weight 91.3 kg (201 lb 4.5 oz) 10/22/2024 8:29 P M [facility] Height 170.2 cm (5' 7.01) 11/24/2024 9:58 AM CS T Body Mass Index 31.52 10/22/2024 8:29 PM [facility] Plan of Treatment Not on file Medical Devices Implanted Type Area Flying Teacher Device Identifier Shelf Expiration Date Model / Serial / Lot [employer] Micra 2 Av Synchronous Leadless Ventricular Pacemaker [id number] - [id number] - [id number] Implanted:Qty: 1 on 10/24/2024 by Darien Jamil Jr., MD at [facility] [employer] 02/16/2026 [id number] / [id number] / Procedures Procedure Name Priority Date/Time Associated Diagnosis Comments CARDIOLOGY DOCUMENT SCAN Routine 04/27/2025 3:08 PM CDT CARDIOLOGY DOCUMENT SCAN Routine 04/26/2025 3:05 PM CDT CARDIOLOGY DOCUMENT SCAN Routine 04/25/2025 3:03 PM CDT CARDIOLOGY DOCUMENT SCAN Routine 04/24/2025 2:49 PM CDT POCT HEMOGLOBIN A1C Routine 11/24/2024 10:01 AM [facility] Type 2 diabetes mellitus with hyperglycemia, with long-term current use of insulin (CMS/HCC) EGFR Routine 10/25/2024 5:48 AM [facility] HEPATITIS PANEL, ACUTE Routine 10/23/2024 2:45 PM [facility] HM DIABETES EYE EXAM Routine 08/13/2024 9:40 [...] Read Routine (OP Routine) 12/05/2021 11:53 AM [facility] End stage renal disease (HCC) from Last 3 Months or Most Recently Relevant to Health Maintenance Results * Cardiology Document Scan (04/27/2025 3:08 PM CDT) Anatomical Region Laterality Modality Other Hyacinth Fox MD CV CARDIAC SERVICES PROCEDU RES Final Result * Cardiology Document Scan (04/26/2025 3:05 PM CDT) Anatomical Region Laterality Modality Other Result [facility] Rory An MD CV CARDIAC SERVICES PROCEDU RES Final Result * Cardiology Document Scan (04/25/2025 3:03 PM CDT) Anatomical Region Laterality Modality Other Rory An MD CV CARDIAC SERVICES PROCEDU RES Final Result * Cardiology Document Scan (04/24/2025 2:49 PM CDT) Anatomical Region Laterality Modality Other Rory An MD CV CARDIAC SERVICES PROCEDU RES Final Result * POCT hemoglobin A1c (11/24/2024 10:01 AM [facility]) Hemoglobin A1C, POC 4.9 4.0 - 5.6 % Blood 11/24/2024 10:0 1 AM [facility] Result [facility] Bertha Pinto NP POINT OF CARE TEST ORDERA BLES Final Result * (ABNORMAL) eGFR (10/25/2024 5:48 AM [facility]) eGFR 9(L) >=60 mL/min/1. 73 m2 Comment: [...] last reviewed 2021. Blood 10/25/2024 5:48 AM [facility] 10/25/2024 6:03 AM [facility] Raisa Scherer SHOE CASER LAB BLOOD ORDERABLES Jeaneth l Result Performing Organization Address [facility] Co de Phone Number [facility] [phone] [place] [address] * Hepatitis panel, acute Blood (10/23/2024 2:45 PM [facility]) Hep A IgM Nonreactive Nonreactive Comment: Interpretive Data: If Hep A IgM Ab is reported as Equivocal, a new sample should be drawn in two weeks for testing. Current interpretive data was last revised on 20. Hep B core IgM Nonreactive Nonreactive [facility] Comment: Interpretive Data If HepB Core IgM Ab is reported as Equivocal, a new sample should be drawn in two weeks for testing. Current interpretive data was last revised on 20. Hep C Ab Nonreactive Nonreactive [facility] Comment: Interpretive Data Nonreactive: Antibodies [...] revised on 2020. HepBsAg Nonreactive Nonreactive [facility] Blood 10/23/2024 2:45 PM [facility] 10/23/2024 2:46 PM [facility] Sherrill Christianson MD LAB MICROBIOLOGY - GENERAL ORDERABLES Final Result Performing Organization Address [facility] Co de Phone Number [facility] [phone] [place] [address] * (ABNORMAL) DIABETES EYE EXAM (08/13/2024 9:40 AM CDT) Historical Provider HEALTH MAINTENANCE Edited Result - Final * (ABNORMAL) Albumin Creatinine Ratio, Urine (03/10/2024 8:46 AM CDT) Albumin Ur 3,169.5 mg/L Comment: Interpretive Data No reference range established. Current interpretive data was last revised 2019. Creatinine Ur 47.7 mg/dL [facility] Comment: Interpretive Data No reference range established. Current interpretive data was last revised 2019. Albumin Creatinine Ratio, Ur 6,645(H) 1 - 29 mg/g [facility] Urine 03/10/2024 8:46 AM CDT 03/11/2024 9:11 AM CDT Bertha Pinto SHOE CASER LAB URINE ORDERABLES Jeaneth l Result [facility] [id number] [place] [address] * (ABNORMAL) Lipid panel (03/03/2024 9:29 AM [...] on 2018. Triglycerides 75 <=149 mg/dL [facility] Comment: Interpretive Data Ages < [...] BLOOD ORDERABLES Jeaneth l Result [facility] [address] [place] [address] * CT Abdomen Pelvis WO Contrast (12/05/2021 11:53 AM [facility]) Anatomical Region Laterality Modality Body N/A Computed Tomogra phy 12/05/2021 12:0 4 PM [facility] Impressions 12/05/2021 12:04 PM [facility] Bone windows show no suspicious lytic or blastic lesions. IMPRESSION: 1. 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 2. 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 Electronically signed by: Ryan Cameron M.D. Narrative 12/05/2021 12:04 PM [facility] EXAMINATION: Computed tomography of the abdomen/pelvis without [...] adeniform shape. There is atrophy of both [place] kidneys. Adjacent fat stranding is likely [...] adeniform shape. There is atrophy of both [place] kidneys. Adjacent fat stranding is likely [...] LIFE MEDICARE MEDICARE FOR LIFE Care Teams School Operations Manager Relationship Specialty Start Date End Date Mariza Carrion MD [address] [facility] [address] [place] [address] PCP - General Family Practice 03/05/23 Efren Hoyos MD Referring Physician Ophthalmology 06/16/19 Dank Hicks MD [address] [facility] [address] [place], [place] [id number] Consulting Physician Cardiology 10/11/21
--- OUTSIDE RECORDS SUMMARY | 2025-05-11 19:13 | XMS_ITS | Clinical Summary ---
Author Organization [facility] Address [address] [place] [phone] Phone Care Team Providers Care Electric Shipyard Operator Name Role Phone Mariza Carrion MD [...] dir 0 11/12/2017 Active ergocalciferol (VITAMIN D-2) 63755 units capsule Take 1 capsule (50,000 Units total) by mouth 2 (two) times a week. 28 capsule 3 03/27/2019 Active hydrALAZINE (APRESOLINE) 100 MG tablet TAKE 1 TABLET TWICE A DAY 180 tablet 4 04/30/2019 Active aspirin 81 MG chewable tablet one p.o. qd 05/23/2012 A ctive ergocalciferol (VITAMIN D-2) 11111 units capsule one p.o. capsule once a [...] PCV20 or PCV21) 2013 2012 Influenza Vaccine (#1) 2025 Insurance MEDICARE Care Teams Electric Shipyard Operator Relationship Specialty Start Date End Date Mariza Carrion MD [address] [place] [address] PCP - General Internal Medicine 01/06/19
--- OUTSIDE RECORDS SUMMARY | 2025-05-11 19:13 | XMS_ITS | Clinical Summary ---
Author Organization [facility] Facility Address [address] [address] Care Team Providers Care Electric Scoop Operator Name Role Phone Murali Dawkins MD [...] age to complete this topic Insurance Medicare [facility] Care Teams Electric Scoop Operator Relationship Specialty Start Date End Date Murali Dawkins MD [address] [place] [address] PCP - General Family Medicine 10/28/24
--- OUTSIDE RECORDS SUMMARY | 2025-05-11 19:13 | XMS_ITS | Clinical Summary ---
Author Organization [facility] Address [address] [place] [id number] Care Team Providers Care Technical Sales Advisor Name Role Phone Efren Hoyos MD Unavailable Dank Hicks MD Unavailable Mariza Carrion MD Primary Care Provider Allergies [...] 12/09/2019 Assessment & Plan (09/03/2023 9:28 AM TALENT ACQUISITION ADMINISTRATOR): Chronic problem. [facility] [place]: //Saturdays. LUE fistula. Assessment & Plan (03/05/2023 9:59 AM CDT): Chronic problem. [facility] [place]: //Saturdays. LUE fistula. Hyperlipidemia associated with type 2 diabetes fouzia victoria 05/22/2019 Assessment & Plan (11/24/2024 10:10 AM TALENT ACQUISITION ADMINISTRATOR): Chronic problem. Controlled on current Atorvastatin 20mg. Last lipid panel: 03/03/24 LDL=33, TG=75. Assessment & Plan (03/03/2024 8:45 AM CDT): Chronic problem. Controlled on current Atorvastatin 20mg. Last lipid panel: 03/05/23 LDL=57, NK=311. Will update labs today. Does not mychart. Verified phone #/address to contact re: results. Assessment & Plan (09/03/2023 9:28 AM TALENT ACQUISITION ADMINISTRATOR): Chronic problem. Controlled on current Atorvastatin 20mg. Last lipid panel: 03/05/23 LDL=57, DO=662. Assessment & Plan (03/05/2023 9:53 AM CDT): Chronic problem. Controlled on current Atorvastatin 20mg. Last lipid panel: 12/05/21 LDL=36, AY=524. Will update labs today. Verified phone #/address to contact re: results. Assessment & Plan (11/02/2022 2:47 PM TALENT ACQUISITION ADMINISTRATOR): Chronic, well controlled Low fat Low cholesterol [...] Lipitor Assessment & Plan (09/07/2020 2:26 PM TALENT ACQUISITION ADMINISTRATOR): Goal of treatment , LDL cholesterol less [...] panel Assessment & Plan (12/09/2019 2:03 PM TALENT ACQUISITION ADMINISTRATOR): Very high TG Add Vascepa Assessment & [...] statin therapy Coronary artery disease invo lving [place] coronary artery of [place] heart without angina pectoris 10/04/2017 Hx of CABG 10/04/2017 Class 2 severe obesity due t o excess calories with serious comorbidity and body mass index (BMI) of 38.0 to 38.9 in adult 05/22/2017 Assessment & Plan (10/24/2018 12:58 PM TALENT ACQUISITION ADMINISTRATOR): Making progress with diet efforts. Continue Assessment & Plan (02/08/2018 11:01 AM CDT): Importance of following diet and exercising discussed. Hypertension associated with diabetes 05/22/2017 Assessment & Plan (11/24/2024 10:11 AM TALENT ACQUISITION ADMINISTRATOR): Chronic problem. Controlled on current losartan 100mg daily, amlodipine 10mg daily Assessment & Plan (03/03/2024 8:45 AM CDT): Chronic problem. BP elevated upon arrival. Controlled on current Carvedilol 25mg bid, losartan 100mg daily. No changes at this time. Will update labs today. Does not mychart. Verified phone #/address to contact re: results. Assessment & Plan (09/03/2023 9:28 AM TALENT ACQUISITION ADMINISTRATOR): Chronic problem. BP elevated upon arrival. Controlled [...] renal Assessment & Plan (10/24/2018 12:57 PM TALENT ACQUISITION ADMINISTRATOR): Controlled. Continue current medication plan and follow up with cardiology Assessment & Plan (06/18/2018 2:30 PM CDT): BP controlled on current medication plan. Continue follow up with nephrology Assessment & Plan (02/08/2018 11:00 AM CDT): Continue same medication Assessment & Plan (12/11/2017 10:24 AM TALENT ACQUISITION ADMINISTRATOR): Goal blood pressure is less than 140/85 [...] mellitus Assessment & Plan (11/24/2024 10:16 AM TALENT ACQUISITION ADMINISTRATOR): Chronic problem, controlled on current regimen. A1c [...] daily for skin breakdown and infection (sees review engineer regularly). Assessment & Plan (03/03/2024 9:19 [...] daily for skin breakdown and infection (sees review engineer regularly). Assessment & Plan (09/03/2023 9:27 AM TALENT ACQUISITION ADMINISTRATOR): Chronic problem, controlled on current regimen. A1c [...] daily for skin breakdown and infection (sees review engineer regularly). Assessment & Plan (03/05/2023 10:13 AM CDT): Chronic problem, controlled on current regimen. Current medications: Trulicity 1.5mg weekly Lantus 6 units every morning Humalog 4 units before meals For sugars over 160: take 6 units For sugars over 200: take 8 units Seen by [facility] every 4-5 mos; letter sent to get [...] daily for skin breakdown and infection (sees review engineer regularly). Will update labs today. Verified phone #/address to contact re: results. Assessment & Plan (11/02/2022 2:43 PM TALENT ACQUISITION ADMINISTRATOR): Well controlled, with risk of hypoglycemia Insuli [...] Ross Assessment & Plan (09/07/2020 2:26 PM TALENT ACQUISITION ADMINISTRATOR): Hba1c was Lab Results Component Value Date [...] Trulicity. Assessment & Plan (12/09/2019 2:03 PM TALENT ACQUISITION ADMINISTRATOR): Your Hba1c today was: Lab Results Component Value Date HGBA1C 9.3 12/09/2019 meaning a 3 month average sugar of : 224 Your goal hba1c is under 7.0 to prevent snf diabetes complications ( eye , kidney and [...] hypoglycemia. Assessment & Plan (10/24/2018 1:00 PM TALENT ACQUISITION ADMINISTRATOR): Stable BG pattern 100-140 reported since last adjustment to plan. No change today. BG goals reviewed. Advised to lower Lantus by 2 units if FBG are < 100 x 2 days/wk. For planned activity, reduce Humalog dose by 1/2 at preceding meal. Assessment & Plan (09/19/2018 11:11 AM TALENT ACQUISITION ADMINISTRATOR): Your Hba1c today was: Lab Results Component Value Date HGBA1C 5.1 09/19/2018 meaning a 3 month average sugar of : 81 Your goal hba1c is under 7.0 to prevent snf diabetes complications ( eye , kidney and [...] time. Assessment & Plan (12/11/2017 10:47 AM TALENT ACQUISITION ADMINISTRATOR): Hba1c was .5.4 Today, 1800 calorie, consistent [...] 05/22/2019 Assessment & Plan (09/19/2018 11:20 AM TALENT ACQUISITION ADMINISTRATOR): Prevention and treatment of hypoglycemia were discussed [...] therapy Assessment & Plan (10/24/2018 12:57 PM TALENT ACQUISITION ADMINISTRATOR): Check lipid panel Assessment & Plan (06/18/2018 2:31 PM CDT): Continue statin therapy Assessment & Plan (02/08/2018 11:00 AM CDT): Continue atorvastatin Assessment & Plan (12/11/2017 10:45 AM TALENT ACQUISITION ADMINISTRATOR): Goal of treatment , LDL cholesterol less [...] Department Care Team Description 04/28/2025 Orders Only [facility] [address] [place] [address] Rory An MD 04/28/2025 Telephone [facility] [address] [place] [address] Dank Hicks MD 04/22/2025 9:45 AM CDT Ancillary Procedure [facility] [address] [facility] [address] [place] [address] Cardiac pacemaker in situ; Asystole (HCC); Syncope and collapse; Symptomatic bradycardia from Last 3 Months Surgical History Surgery [...] drink = 0.6 oz pur e alcohol) [facility] [employer] Answer Date Recorded In the past 12 months has [employer], [employer], oil, or water [employer] threatened to shut off services in your [...] How often do you attend chur or mormon services? Never 10/23/2024 Do you belong to any clubs o r organizations such as sabianism groups, unions, fraternal or athletic groups, or [...] time in the past 12 [facility], were you homeless or living in a detention (including now)? No 10/23/2024 Personal Safety Answer Date Recorded Have you ever been in or are you currently in a harmful physical or emotional relationship or is someone making you feel afraid or unsafe? Denies 10/22/2024 Sex and Gender Information Value Date Recorded Sex Assigned at Not on file Legal Sex Male 7:27 PM TALENT ACQUISITION ADMINISTRATOR Gender Identity Not on file Sexual Orientation Not on file Obstetrics History Last Filed Vital Signs Vital Sign Reading Time Taken Comments Blood Pressure 102/58 11/24/2024 9:58 AM TALENT ACQUISITION ADMINISTRATOR Pulse 75 11/24/2024 9:58 AM TALENT ACQUISITION ADMINISTRATOR Temperature 36.3 C (97.3 F) 10/25/2024 2:15 PM TALENT ACQUISITION ADMINISTRATOR Respiratory Rate 20 11/24/2024 9:58 AM TALENT ACQUISITION ADMINISTRATOR Oxygen Saturation 100% 10/25/2024 1:15 PM TALENT ACQUISITION ADMINISTRATOR Inhaled Oxygen Concentration - - Weight 91.3 kg (201 lb 4.5 oz) 10/22/2024 8:29 P M TALENT ACQUISITION ADMINISTRATOR Height 170.2 cm (5' 7.01) 11/24/2024 9:58 AM CS T Body Mass Index 31.52 10/22/2024 8:29 PM TALENT ACQUISITION ADMINISTRATOR Plan of Treatment Health Maintenance Due Date [...] 10/23/2024, 022 Medical Devices Implanted Type Area Manager Business Information Device Identifier Shelf Expiration Date Model / Serial / Lot [employer] Micra 2 Av Synchronous Leadless Ventricular Pacemaker [id number] - [id number] - [id number] Implanted:Qty: 1 on 10/24/2024 by Darien Jamil Jr., MD at [facility] [employer] 02/16/2026 [id number] / [id number] / Procedures Procedure Name Priority Date/Time Associated Diagnosis Comments CARDIOLOGY DOCUMENT SCAN Routine 04/27/2025 3:08 PM CDT CARDIOLOGY DOCUMENT SCAN Routine 04/26/2025 3:05 PM CDT CARDIOLOGY DOCUMENT SCAN Routine 04/25/2025 3:03 PM CDT CARDIOLOGY DOCUMENT SCAN Routine 04/24/2025 2:49 PM CDT POCT HEMOGLOBIN A1C Routine 11/24/2024 10:01 AM TALENT ACQUISITION ADMINISTRATOR Type 2 diabetes mellitus with hyperglycemia, with long-term current use of insulin (CMS/HCC) EGFR Routine 10/25/2024 5:48 AM TALENT ACQUISITION ADMINISTRATOR HEPATITIS PANEL, ACUTE Routine 10/23/2024 2:45 PM TALENT ACQUISITION ADMINISTRATOR HM DIABETES EYE EXAM Routine 08/13/2024 9:40 [...] Read Routine (OP Routine) 12/05/2021 11:53 AM TALENT ACQUISITION ADMINISTRATOR End stage renal disease (HCC) from Last 3 Months or Most Recently Relevant to Health Maintenance Results * Cardiology Document Scan (04/27/2025 3:08 PM CDT) Anatomical Region Laterality Modality Other Hyacinth Fox MD CV CARDIAC SERVICES PROCEDU RES Final Result * Cardiology Document Scan (04/26/2025 3:05 PM CDT) Anatomical Region Laterality Modality Other us Rory An MD CV CARDIAC SERVICES PROCEDU RES Final Result * Cardiology Document Scan (04/25/2025 3:03 PM CDT) Anatomical Region Laterality Modality Other Rory An MD CV CARDIAC SERVICES PROCEDU RES Final Result * Cardiology Document Scan (04/24/2025 2:49 PM CDT) Anatomical Region Laterality Modality Other Rory An MD CV CARDIAC SERVICES PROCEDU RES Final Result * POCT hemoglobin A1c (11/24/2024 10:01 AM TALENT ACQUISITION ADMINISTRATOR) Hemoglobin A1C, POC 4.9 4.0 - 5.6 % Blood 11/24/2024 10:0 1 AM TALENT ACQUISITION ADMINISTRATOR Bertha Pinto NP POINT OF CARE TEST ORDERA BLES Final Result * (ABNORMAL) eGFR (10/25/2024 5:48 AM TALENT ACQUISITION ADMINISTRATOR) eGFR 9(L) >=60 mL/min/1. 73 m2 Comment: [...] last reviewed 2021. Blood 10/25/2024 5:48 AM TALENT ACQUISITION ADMINISTRATOR 10/25/2024 6:03 AM TALENT ACQUISITION ADMINISTRATOR Raisa Scherer HEALTH MANAGEMENT CONSULTANT LAB BLOOD ORDERABLES Jeaneth l Result Performing Organization Address [facility] de Phone Number [facility] [address] [place] [address] * Hepatitis panel, acute Blood (10/23/2024 2:45 PM TALENT ACQUISITION ADMINISTRATOR) Hep A IgM Nonreactive Nonreactive Comment: Interpretive Data: If Hep A IgM Ab is reported as Equivocal, a new sample should be drawn in two weeks for testing. Current interpretive data was last revised on 20. Hep B core IgM Nonreactive Nonreactive [facility] Comment: Interpretive Data If HepB Core IgM Ab is reported as Equivocal, a new sample should be drawn in two weeks for testing. Current interpretive data was last revised on 20. Hep C Ab Nonreactive Nonreactive [facility] Comment: Interpretive Data Nonreactive: Antibodies to HCV [...] last revised on 2020. HepBsAg Nonreactive Nonreactive [facility] Blood 10/23/2024 2:45 PM TALENT ACQUISITION ADMINISTRATOR 10/23/2024 2:46 PM TALENT ACQUISITION ADMINISTRATOR Sherrill Christianson MD LAB MICROBIOLOGY - GENERAL ORDERABLES Final Result Performing Organization Address [facility] Co de Phone Number [facility] [address] [employer] [place] [address] * (ABNORMAL) DIABETES EYE EXAM (08/13/2024 9:40 AM CDT) Historical Provider [facility] MAINTENANCE Edited Result - Final [...] NP LAB URINE ORDERABLES Jeaneth jacey Result [facility] [address] Department [place] [address] * (ABNORMAL) Lipid panel (03/03/2024 9:29 AM [...] Bertha Pinto NP LAB BLOOD ORDERABLES Jeaneth jacey Result [facility] [address] Department [place] [address] * CT Abdomen Pelvis WO Contrast (12/05/2021 11:53 AM TALENT ACQUISITION ADMINISTRATOR) Anatomical Region Laterality Modality Body N/A Computed Tomogra phy 12/05/2021 12:0 4 PM TALENT ACQUISITION ADMINISTRATOR Impressions 12/05/2021 12:04 PM TALENT ACQUISITION ADMINISTRATOR Bone windows show no suspicious lytic or blastic lesions. IMPRESSION: 1. 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 2. 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 Electronically signed by: Ryan Cameron M.D. Narrative 12/05/2021 12:04 PM TALENT ACQUISITION ADMINISTRATOR EXAMINATION: Computed tomography of the abdomen/pelvis without [...] adeniform shape. There is atrophy of both [place] kidneys. Adjacent fat stranding is likely related [...] adeniform shape. There is atrophy of both [place] kidneys. Adjacent fat stranding is likely related [...] MEDICARE FOR LIFE FOR LIFE MEDICARE MEDICARE [facility] FOR LIFE Care Teams Technical Sales Advisor Relationship Specialty Start Date End Date Mariza Carrion MD [address] [facility] [address] [place] [address] PCP - General Family Practice 03/05/23 Efren Hoyos MD Referring Physician Ophthalmology 06/16/19 Dank Hicks MD [address] [facility] [address] [place], [place] [id number] Consulting Physician Cardiology 10/11/21
--- OUTSIDE RECORDS SUMMARY | 2025-05-11 19:13 | XMS_ITS | Clinical Summary ---
Author Organization [employer] Address [address] [address] Care Team Providers Care Sheet Pile Hammer Operator Name Role Phone Mariza Carrion MD Primary Care Provider Source Comments [facility],non-owned Affiliates and Associated Physician Practices is amultiple site organization consisting of ambulatory clinics and hospital sitesin [place], [place], [place] and [place]. This disclosure is being madepursuant to the Care Everywhere program and may not contain all information available regarding this patient. Last updated 18.[facility] Allergies No known active allergies Medications * [...] Use pads 5 times daily 8 Active mfomt-4-ovbe ethyl esters (LOVAZA) 1 g capsule Take [...] FOR MUSCLE SPASM 4 Active HYDROcodone-ac etaminophen ([place]) 5-325 MG tablet 4 Active Lokelma 10 [...] Encounters Date Type Department Care Team Description 04/29/2025 10:45 AM CDT - 04/29/2025 11:59 PM CDT Hospital Encounter [facility] OP DRAW STATION [address] [place] [phone] Discharge Disposition: Home or Self Care 04/29/2025 Travel 04/03/2025 11:24 AM CDT - 04/03/2025 11:59 PM CDT Hospital Encounter [facility] [address] [place] [address] Matt Beyer, Discharge Disposition: Home or Self Care from [...] and heating? Not hard at all 04/06/2023 [facility] of Occupat ional Health - Occupational Stress [...] place to sleep or slept in a long-term (including now)? No 04/06/2023 Sex and Gender [...] st Contact Info) Description 10/02/2025 1:00 PM EMBEDDED NURSE Appointment [facility] [address], [address] [place] [address] [place] [address] [place] [address] Health Maintenance Due Date Last Done Comments MEDICARE AWV 12 MONTHS 1945 DTAP/TDAP/TD VACCINES (1 - Tdap) 1966 PNEUMOCOCCAL VACCINE 50+ (1 of 2 - PCV) 1966 ZOSTER VACCINE (1 of 2) 1997 Respiratory Syncytial Virus (RSV) Vaccine Pt: or over 60 yrs (1 - 1-dose 75+ series) 2022 COVID-19 VACCINE (2023-2 5 season) 2024 DEPRESSION SCREENING 10/22/2024 INFLUENZA VACCINE (#1) 2025 08/18/2013 HEPATITIS C SCREENING Completed 10/23/2024 , 04/07/2023 HEPATITIS B VACCINE Aged Out No [...] this topic Medical Devices Implanted Type Area Gluing Machine Adjuster Device Identifier Shelf Expiration Date Model / Serial / Lot Mynxgrip Vascular Closure Device Implanted:Qty: 1 on 04/11/2023 by Matt Beyer DO at [facility] Right: Groin 01/19/2025 [id number] / [id number] / [id number] 5tch Cv 6x1cm [employer] Decellularized Implanted:Qty: 1 on 04/20/2023 by Matt Beyer DO at [facility] N/A: Other (See Descriptio n) [employer] 01/28/2024 [id number] / / [id number] Description:LEFT FEMORAL ART BAIR Procedures Procedure Name Priority Date/Time Associated Diagnosis Comments COMPREHENSIVE METABOLIC PANEL Routine 04/29/2025 11:11 AM CDT Controlled diabetes mellitus type 2 with complications, unspecified whether care home insulin use (HCC) CARDIAC RHYTHM STRIP ORDER 04/07/2025 4:28 PM CDT HEPATITIS SCREEN ACUTE STAT 8:19 AM CDT from Last 3 Months or Most Recently Relevant to Health Maintenance Results * (ABNORMAL) COMPREHENSIVE METABOLIC PANEL (04/29/2025 11:11 AM [facility]) BUN 21 7 - 26 mg/dL 04/29/2025 12:07 PM [facility] Creatinine 4.73(H) 0.71 - 1.16 mg/dL 04/29/2025 12:07 PM [facility] Sodium 135(L) 136 - 145 mmol/L 04/29/2025 12:07 PM [facility] Potassium 3.7 3.5 - 4.5 mmol/L 04/29/2025 12:07 PM [facility] Chloride 100 98 - 107 mmol/L 04/29/2025 12:07 PM [facility] CO2 29 22 - 29 mmol/L 04/29/2025 12:07 PM [facility] Glucose 111(H) 70 - 99 mg/dL 04/29/2025 12:07 PM [facility] Calcium 9.0 8.4 - 10.2 mg/dL 04/29/2025 12:07 PM [facility] Protein Total 6.2 6.0 - 8.3 g/dL 04/29/2025 12:07 PM [facility] Albumin 2.7(L) 3.4 - 5.0 g/dL 04/29/2025 12:07 PM [facility] Bilirubin Total 0.3 0.2 - 1.2 mg/dL 04/29/2025 12:07 PM [facility] Alkaline Phosphatase 76 40 - 150 U/L 04/29/2025 12:07 PM [facility] ALT 135(H) 5 - 55 U/L 04/29/2025 12:07 PM [facility] AST 20 5 - 34 U/L 04/29/2025 12:07 PM [facility] Anion Gap 6 6 - 16 04/29/2025 12:07 PM [facility] BUN/Creatinine Ratio 4(L) 7 - 23 04/29/2025 12:07 PM [facility] Osmolality Calculated 284 275 - 295 mOsm/kg 04/29/2025 12:07 PM [facility] Albumin/Globulin Ratio 0.8(L) 1.1 - 2.3 04/29/2025 12:07 PM CDT [facility] eGFR by CKD-EPI 12(L) >=90 mL/min/1.7 3 m2 04/29/2025 12:07 PM CDT [facility] Comment:Estimated Glomerular Filtration Rate (eGFR) calculated using the CKD-EPI Creatinine Equation (2020), per the National Kidney Foundation and [place] Society of Nephrology recommendations. Blood BLOOD SPECIMEN / Unknown Lab Venipuncture / Unknown 04/29/2025 11:11 AM CDT 04/29/2025 11:34 AM CDT Keven Roe DO LAB - CHEMISTRY RJ AYALA Final Result [facility] [address] [place] [address], [facility] [phone] * CARDIAC RHYTHM STRIP ORDER (04/07/2025 4:28 PM CDT) Narrative 04/07/2025 4:28 PM CDT Ordered by an unspecified provider. Scanned Document CARDIAC SERVICES ORDERABLES Fin al Result * HEPATITIS SCREEN ACUTE (04/07/2023 8:19 AM CDT) HAV Antibody IgM Non Reactive Non Reactive 04/07/2023 9:28 AM CDT [facility] HBsAg Non Reactive Non Reactive 04/07/2023 9:28 AM CDT [facility] HBc Antibody IgM Non Reactive Non Reactive 04/07/2023 9:28 AM CDT [facility] HCV Antibody Screen Non Reactive Non Reactive 04/07/2023 9:28 AM CDT [facility] Blood BLOOD SPECIMEN / Unknown Venipuncture / Unknown 04/07/2023 8:19 AM CDT 04/07/2023 8:31 AM CDT Narrative [facility] - 04/07/2023 9:28 AM CDT Non Reactive - Antibodies to Hepatitis C virus (HCV) were not detected, result does not exclude early acute HCV infection. us Marito Rios MD LAB - CHEMISTRY ORDERABLES Jeaneth l Result [facility] [address] [place] [address] from Last 3 Months or Most Recently Relevant to Health Maintenance Insurance MEDICARE SELF PAY NO INSURANCE Member Subscriber Plan / Payer (Ef fective for All Dates) Name:Brandie Morrissey Jr Member ID:Not on file Relation to Subscriber:Not on file Name:BRANDIE MORRISSEY JR Subscriber ID:Not on file (Home) Address: [address] [place] [phone] Payer ID:Not on file Group ID:Not on file Type:Self Pay Address: [place], [place] MEDICARE Advance Directives Documents on File Type Date Recorded Patient Device Engineer Expl anation Adv Directive/Living Will/POA 05/02/2023 3:49 PM * Full Code (Latest Code Status on File) Date Activated Date Inactivated Comments 04/06/2023 9:49 AM 05/01/2023 4:44 PM Care Teams Sheet Pile Hammer Operator Relationship Specialty Start Date End Date Mariza Carrion MD [address] [place] [address] PCP - General Family Medicine 08/26/18
[2025-05-11 19:20] LABS: Magnesium 2.2 mg/dL (1.6-2.3)
[2025-05-11] MEDS: LACTATED RINGERS 1,000 ML 999 ML IV CONT (19:33)
[2025-05-11 19:42] LABS: INR 2.1; Prothrombin Time 23.2 Seconds (11.1-14.7)
[2025-05-11 19:43] LABS: Partial Thromboplastin Time 37.8 Seconds (22.3-36.8)
[2025-05-11] MEDS: SODIUM CHLORIDE 0.9% IV 500 ML 999 ML IV CONT (21:39)
[2025-05-11] MEDS: SODIUM CHLORIDE 0.9% IV 1,000 ML 999 ML IV CONT (21:39)
[2025-05-11] MEDS: PIPERACILLIN/TAZOBACTAM SOD 4.5 GM in SODIUM CHLORIDE 0.9% IV 100 ML 200 ML IVPB (21:40)
[2025-05-11] MEDS: NOREPINEPHRINE 8 MG/D5W 250 ML 8 MG/250 ML BAG 9.38 MG IV CONT (21:44)
[2025-05-11 21:57] LABS: Fibrinogen 341 mg/dl (215-510)
[2025-05-11] MEDS: TUBING, BLOOD SET 1 EACH XX (22:08)
[2025-05-11] MEDS: SODIUM CHLORIDE 0.9% IV 250 ML 30 ML IV CONT (22:08)
[2025-05-11] MEDS: VANCOMYCIN 1,500 MG/NS 500 ML 1,500 MG/500 ML BAG 250 MG IVPB (22:55)
[2025-05-11 22:59] LABS: MRSA (PCR) NOT DETECTED (NOT DETECTE)
--- NOTE | 2025-05-11 23:03 | PC.NURSE ---
This RN spoke with pts RN at [facility] and updated about pts POC and admission
--- NOTE | 2025-05-11 23:40 | P.HP_ITS ---
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 Patient is somnolent difficult to arouse and as such majority of information was provided by ER physician report, EMS report and review of past medical records. Patient had reported lower abdominal pain and feeling weak to ER staff. He was alert orient x2 on arrival to the ER but was only alert oriented to his name at the time of my evaluation. He would not stay awake long enough to answer any further questions despite multiple attempts. Patient had denied any nausea vomiting back pain or chest discomfort ER staff. He went to dialysis on Sunday without any issues. Patient had not had any reported melena rectal bleeding according to the patient or [facility] report. However, just before the patient was transferred up to the ICU he had a large melenic stool. 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 He had a 2nd admission 04/23/2025 through 04/28/2025 at which time he had some transient abdominal pain and elevated AST and ALT. The patient's AST and ALT trended down and abdominal pain resolved with conservative management. In the ER labs demonstrated severe anemia with hemoglobin of 5. His blood pressures in the ER ranged from the mid 70s to low 90 range. A right femoral central line was placed by ER staff and the patient was started on Levophed and 3 units of blood were ordered for transfusion. CTA of the abdomen pelvis demonstrated hepatomegaly with mild periportal edema and mild Yoon hepatic fluid pericholecystic fluid with inflammation in the min hepatis and surrounding extrahepatic bile ducts could be consistent with hepatitis cholecystitis and cholangitis, bladder wall thickening possibly secondary to cystitis versus chronic outlet obstruction and mild atelectasis or edema in the bases and small bilateral pleural effusion. Patient was given a dose of Zosyn and started on vancomycin with pharmacy to dose. On exam the patient was noted to have a large area of eschar to the anterior right griffin with surrounding erythema. The patient had told the nurse it was due to recent fall but was unable to provide me with any details. He did cry out in pain with any palpation of the area. He has been afebrile since presentation. Review of Systems 2 Review of Systems: Unobtainable due to patient's encephalopathy [facility] Past Medical History Medical History (Updated 05/12/25 @ 02:13 by Alexandra Leo DO) Pulmonary hypertension AVM (arteriovenous malformation) of colon, acquired with hemorrhage Chronic anticoagulation Insulin dependent type 2 diabetes mellitus (~2009) Chronic obstructive pulmonary disease Diabetic polyneuropathy Coronary artery disease Anemia Atrial fibrillation Chronic neck and back pain Insomnia History of nephrolithiasis Sinus pause (~09/2024) Obstructive sleep apnea Intolerant to CPAP Benign prostatic hyperplasia Peripheral vascular disease (~03/2023) Internal hemorrhoid, bleeding End-stage renal disease on hemodialysis DVT dialysis Sunday History of colon polyps Environmental allergies Vitamin D deficiency Dyslipidemia Essential (primary) hypertension Surgical History Surgical History History of cardiac pacemaker (~10/2024) Medtronic pacemaker placed due to symptomatic sinus pauses causing syncope performed at [facility] Status post cataract extraction of both eyes with insertion of intraocular lens History of colonoscopy with polypectomy History of hemorrhoidectomy (~01/12/24) Anorectal evaluation under anesthesia and excisional hemorrhoidectomy x3 12/14/23 SAW S/P peripheral artery angioplasty (~03/2023) status post balloon angioplasty of bilateral common and external iliac arteries status post left iliofemoral endarterectomy Arteriovenous fistula of left upper extremity (~2017) History of appendectomy (~1962) History of coronary artery bypass graft (~2013) Family History Family History Mother Diabetes mellitus Acute myocardial infarction Family history of congestive heart failure Father Hypertension Social History Social History Social History: The patient is . He and his brother live together prior to his hospitalization November or December 2024 and subsequent placement in to [facility]. He is retired after 26 years of serving in the [employer]. He has 4 children. He used to smoke 1.5-2 packs of cigarettes per day but quit smoking in approximately 2009. He will on a rare occasion drink an alcoholic beverage maybe 2 to 3 times a year. He denies illicit substance use. Surrogate medical decision maker: Wilian Morrissey, sibling. Code status: Full code. Caffeine- daily Smoking packs per day: 1.5 Smoking cigarettes per day: 30.0 Years smoked: 44 Smoking pack-years: 66.00 Smoking status: Former smoker Second hand tobacco smoke exposure: No Alcohol intake: unknown Alcohol use details: Maybe 2-3 per year Substance use: never Substance use type: does not use Do You Feel Safe in your Home?: Yes Lack of Transportation: No Lack of Food: Never True Current Housing: I Have Housing Concerned About Future Housing: No Difficulty Paying Gas/Electric Bills: No Difficulty Paying for Meds: No Currently Unemployed: No Education: Don't Know Difficulty w/ Childcare or Family Care: No Living arrangements: with family Occupation/Education: retired Additional occupation/education comments: Retired from the [employer]. 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 Spiritual care concerns: No Agree to blood products: Yes Meds Home Medications and Allergies Home Medications ?Medication ?Instructions ?Recorded ?Confirmed ?Type aspirin 81 mg tablet,delayed 81 mg PO DAILY 10/31/21 05/12/25 History release carvedilol 25 mg tablet 25 mg PO BID 10/31/21 05/12/25 History insulin lispro 100 unit/mL 4 unit subcut .TIDAC 10/31/21 05/12/25 History subcutaneous pen loratadine 10 mg tablet (Claritin) 10 mg PO DAILY 10/31/21 05/12/25 History insulin glargine 100 unit/mL (3 6 unit subcut HS 11/07/23 05/12/25 History mL) subcutaneous pen (Lantus Solostar U-100 Insulin) cinacalcet 90 mg PO DAILY 12/12/23 05/12/25 History atorvastatin 20 mg tablet 20 mg PO HS 12/21/24 05/12/25 History finasteride 5 mg tablet (Proscar) 5 mg PO QAM #30 tabs 12/23/24 05/12/25 Rx furosemide 80 mg tablet 80 mg PO BID #60 tabs 12/23/24 05/12/25 Rx tamsulosin 0.4 mg capsule 0.4 mg PO QHS #30 caps 12/23/24 05/12/25 Rx acetaminophen 325 mg tablet 650 mg (2 x 325 mg) PO Q4H PRN 01/10/25 05/12/25 Rx Mild Pain (1-3) Or Fever #60 tabs pentoxifylline 400 mg 400 mg PO QPM 01/29/25 05/12/25 History tablet,extended release amlodipine 10 mg tablet 10 mg PO DAILY 02/16/25 05/12/25 History bisacodyl 10 mg rectal suppository 10 mg RECTAL DAILY PRN constipation 02/16/25 05/12/25 History (Laxative (bisacodyl)) gabapentin 100 mg capsule 100 mg PO TID 02/16/25 05/12/25 History liraglutide 0.6 mg/0.1 mL (18 mg/3 1.2 mg subcut HS 02/16/25 05/12/25 History mL) subcutaneous pen injector magnesium citrate (Citroma oral 296 ml PO .AM PRN constipation 02/16/25 05/12/25 History solution) magnesium hydroxide 400 mg/5 mL 30 ml PO HS PRN constipation 02/16/25 05/12/25 History oral suspension (Milk of Magnesia) sodium phosphates 19 gram-7 118 ml RECTAL DAILY PRN 02/16/25 05/12/25 History gram/118 mL enema (Fleet Enema) constipation vitamin B complex 1 cap PO DAILY 02/16/25 05/12/25 History ipratropium 20 mcg-albuterol 100 1 puff inhalation Q6H PRN 03/10/25 05/12/25 History mcg/actuation mist for inhalation shortness of breath or wheezing (Combivent Respimat) loperamide 2 mg capsule 2 mg PO Q4H PRN loose stool 03/10/25 05/12/25 History melatonin 3 mg tablet 3 mg PO HS 03/10/25 05/12/25 History tramadol 50 mg tablet 50 mg PO BID 03/10/25 05/12/25 History umeclidinium 62.5 mcg/actuation 1 inh inhalation DAILY 03/10/25 05/12/25 History blister powder for inhalation (Incruse Ellipta) levalbuterol HCl 0.63 mg/3 mL 0.63 mg (3 mL) inhalation Q6H PRN 03/19/25 05/12/25 Rx solution for nebulization shortness of breath or wheezing #90 mL levalbuterol HCl 1.25 mg/3 mL 0.63 mg (1.512 mL) inhalation 03/19/25 05/12/25 Rx solution for nebulization Q6HRT #30 vials sevelamer carbonate 0.8 gram oral 0.8 g PO TIDWM #60 grams 03/19/25 05/12/25 Rx powder packet apixaban 2.5 mg tablet (Eliquis) 2.5 mg PO Q12HR #60 tabs 03/27/25 05/12/25 Rx Allergies Allergy/AdvReac Type Severity Reaction Status Date / Time baclofen Allergy Severe encephalopa Verified 05/12/25 00:25 thy Vital Signs Vital Signs - 24 hr 05/11/25 17:49 05/11/25 17:50 05/11/25 17:51 Temperature 97.8 F Pulse Rate 72 75 69 Respiratory Rate 22 H 21 H 22 H Blood Pressure 98/55 L 98/55 L Pulse Oximetry 99 100 99 Oxygen Delivery Room Air Oxygen Flow Rate 05/11/25 17:55 05/11/25 18:00 05/11/25 18:05 Temperature Pulse Rate 74 69 Respiratory Rate 22 H 21 H 10 L Blood Pressure 88/58 L Pulse Oximetry 100 100 100 Oxygen Delivery Oxygen Flow Rate 05/11/25 18:18 05/11/25 18:39 05/11/25 19:07 Temperature Pulse Rate 72 74 71 Respiratory Rate 14 24 H 23 H Blood Pressure 89/51 L Pulse Oximetry 100 96 99 Oxygen Delivery Oxygen Flow Rate 05/11/25 19:34 05/11/25 19:47 05/11/25 20:00 Temperature Pulse Rate 64 66 66 Respiratory Rate 22 H 20 21 H Blood Pressure 93/46 L 88/51 L Pulse Oximetry 99 100 Oxygen Delivery Oxygen Flow Rate 05/11/25 20:01 05/11/25 20:28 05/11/25 20:30 Temperature Pulse Rate 65 69 68 Respiratory Rate 21 H 21 H 22 H Blood Pressure Pulse Oximetry 100 99 Oxygen Delivery Oxygen Flow Rate 05/11/25 20:42 05/11/25 20:45 05/11/25 20:46 Temperature Pulse Rate 62 65 64 Respiratory Rate 15 11 L Blood Pressure 79/43 L 79/47 L Pulse Oximetry 99 Oxygen Delivery Oxygen Flow Rate 05/11/25 21:06 05/11/25 21:23 05/11/25 21:37 Temperature 97.7 F 97.5 F L Pulse Rate 70 66 70 Respiratory Rate 19 19 21 H Blood Pressure 78/45 L 86/57 L Pulse Oximetry 100 100 100 Oxygen Delivery Oxygen Flow Rate 05/11/25 21:40 05/11/25 21:44 05/11/25 21:45 Temperature Pulse Rate 67 64 62 Respiratory Rate 19 18 Blood Pressure 90/59 L 90/59 L Pulse Oximetry 100 100 Oxygen Delivery Oxygen Flow Rate 05/11/25 21:50 05/11/25 21:52 05/11/25 21:57 Temperature 97.6 F 97.6 F Pulse Rate 70 66 70 Respiratory Rate 17 17 19 Blood Pressure 93/62 L 93/62 L 93/62 L Pulse Oximetry 100 100 100 Oxygen Delivery Oxygen Flow Rate 05/11/25 22:00 05/11/25 22:01 05/11/25 22:10 Temperature Pulse Rate 69 69 67 Respiratory Rate 18 17 18 Blood Pressure 107/59 L 104/66 Pulse Oximetry 100 Oxygen Delivery Oxygen Flow Rate 05/11/25 22:12 05/11/25 22:15 05/11/25 22:20 Temperature 97.5 F L Pulse Rate 69 67 66 Respiratory Rate 16 18 19 Blood Pressure 104/66 114/65 Pulse Oximetry 99 99 99 Oxygen Delivery Oxygen Flow Rate 05/11/25 22:30 05/11/25 22:31 05/11/25 22:40 Temperature Pulse Rate 66 65 73 Respiratory Rate 16 18 19 Blood Pressure 108/62 120/84 Pulse Oximetry 100 100 99 Oxygen Delivery Oxygen Flow Rate 05/11/25 22:45 05/11/25 22:50 05/11/25 23:37 Temperature Pulse Rate 69 76 76 Respiratory Rate 19 18 18 Blood Pressure 111/73 111/73 Pulse Oximetry 99 Oxygen Delivery Oxygen Flow Rate 05/11/25 23:45 05/11/25 23:45 05/12/25 00:00 Temperature 97.8 F Pulse Rate 70 70 67 Respiratory Rate 19 Blood Pressure 133/79 133/79 135/68 Pulse Oximetry 99 Oxygen Delivery Oxygen Flow Rate 05/12/25 00:00 05/12/25 00:15 Temperature Pulse Rate 67 Respiratory Rate Blood Pressure 116/69 Pulse Oximetry 99 Oxygen Delivery Nasal Cannula Oxygen Flow Rate 2 Exam 2 Narrative: Weight 80.2 kg BMI 32.3 Const: Other: Acutely ill-appearing, debilitated lying in bed with the head of the bed at 35 degree HENMT: Other: Head is normocephalic atraumatic, pupils are equal and reactive, marked conjunctival pallor, no scleral icterus Eyes: Other: See above Neck: Other: No JVD, no lymphadenopathy Resp: Other: Shallow respirations crackles in the right lung base, no increased work of breathing Cardio: Other: Irregularly irregular, 2+ right radial pulse, faint right pedal pulse, barely able to auscultate posterior tibial on the right with Doppler ultrasound, not able to palpate pedal pulse on the left but able to Doppler easily, left posterior tibial Doppler with fair blood flow, no JVD, positive murmur GI: Other: Distended, nontender to palpation, normoactive bowel sounds, no organomegaly, no tympany Skin: Other: Marked jaundice, marked pallor, cool to touch, 4-5 second cap refill, cyanotic nail beds, toes are dusky and cold to touch worse on the right versus left, thickened long yellow toenails Neuro: Other: Lethargic/somnolent, difficult to arouse, pupils are equal and reactive, patient will open his eyes on command and will mumble words, he does withdraw from painful stimuli Extrem: Other: 1+ edema bilateral lower extremities and feet, large amount of eschar to the left heel that is dry, toes are dusky and cold to touch, 5/5 fitness sales consultant strength the right, palpable thrill over the left upper extremity AV fistula Psych: Other: Encephalopathic further evaluation limited due to patient condition H&P: Results Labs Labs: Laboratory Tests 05/11/25 18:39 05/11/25 18:39 05/11/25 05/11/25 05/11/25 18:39 19:19 21:43 WBC 8.7 RBC 2.05 L Hgb 5.2 L* D Hct 17.6 L* MCV 85.9 MCH 25.4 L MCHC 29.5 L RDW 21.2 H Plt Count 310 MPV 10.9 H Immature Gran % (Auto) 0.9 H Neut % (Auto) 81.3 H Lymph % (Auto) 8.0 L [place] % (Auto) 9.5 H Eos % (Auto) 0.1 Baso % (Auto) 0.2 Lymph # (Auto) 0.69 L [place] # (Auto) 0.8 H Eos # (Auto) 0.0 Baso # (Auto) 0.0 Abs Immat Gran (auto) 0.08 H Absolute Neuts (auto) 7.0 H Absolute Nucleated RBC 0.000 Band Neutrophils % 0 Nucleated RBC % 0.0 Platelet Estimate Adequate Hypochromasia 1+ Anisocytosis 3+ Schistocytes None seen PT 23.2 H INR 2.1 APTT 37.8 H Fibrinogen 341 D-Dimer 1.07 H Puncture Site ABG pH ABG pCO2 ABG pO2 ABG PO2/FiO2 Ratio ABG HCO3 ABG O2 Saturation ABG O2 Content ABG Base Excess A-a Gradient Oxyhemoglobin Carboxyhemoglobin Methemoglobin Reduced Hemoglobin Total Hemoglobin O2 Delivery Device O2 Liters/Min FiO2 Sodium 127 L Potassium 5.4 H Chloride 87 L Carbon Dioxide 29 Anion Gap 11 BUN 78 H D Creatinine 5.57 H Estim Creat Clear Calc 9 Estimated GFR 10 L Glucose 120 H POC Capillary Glucose Lactic Acid 1.5 Calcium 7.9 L Magnesium 2.2 Total Bilirubin 0.3 AST 417 H ALT 337 H Alkaline Phosphatase 58 Total Protein 5.7 L Albumin 3.4 L Nasal MRSA (PCR) Not detected Blood Type O Positive Antibody Screen Negative Crossmatch See Detail 05/12/25 05/12/25 00:13 01:20 WBC RBC Hgb Hct MCV MCH MCHC RDW Plt Count MPV Immature Gran % (Auto) Neut % (Auto) Lymph % (Auto) [place] % (Auto) Eos % (Auto) Baso % (Auto) Lymph # (Auto) [place] # (Auto) Eos # (Auto) Baso # (Auto) Abs Immat Gran (auto) Absolute Neuts (auto) Absolute Nucleated RBC Band Neutrophils % Nucleated RBC % Platelet Estimate Hypochromasia Anisocytosis Schistocytes PT INR APTT Fibrinogen D-Dimer Puncture Site Right radial ABG pH 7.386 ABG pCO2 46.2 H ABG pO2 80.3 ABG PO2/FiO2 Ratio 2.87 ABG HCO3 27.1 H ABG O2 Saturation 95.6 ABG O2 Content 10.7 L ABG Base Excess 1.8 A-a Gradient 64.8 Oxyhemoglobin 92.8 Carboxyhemoglobin 1.8 Methemoglobin 0.3 Reduced Hemoglobin 5.1 H Total Hemoglobin 8.1 L O2 Delivery Device Nasal cannula O2 Liters/Min 2.0 FiO2 28 Sodium Potassium Chloride Carbon Dioxide Anion Gap BUN Creatinine Estim Creat Clear Calc Estimated GFR Glucose POC Capillary Glucose 138 H Lactic Acid Calcium Magnesium Total Bilirubin AST ALT Alkaline Phosphatase Total Protein Albumin Nasal MRSA (PCR) Blood Type Antibody Screen Crossmatch Impressions Chest X-Ray 05/11/25 19:41 IMPRESSION: No acute cardiopulmonary process. Abdomen/Pelvis CTA 05/11/25 20:52 IMPRESSION: Mild atelectasis/edema in the lung bases. Small bilateral pleural effusions. Hepatomegaly with mild periportal edema and mild perihepatic fluid. Pericholecystic fluid with fluid/inflammation in the min hepatis and surrounding the extrahepatic bile ducts. Consider hepatitis, cholecystitis, and cholangitis in the differential. Bladder wall thickening may be secondary to cystitis or chronic outlet obstruction from prostatomegaly. Extensive atherosclerotic disease. Telemetry reviewed Assessment and Plan Assessment and plan (1) GI (gastrointestinal bleed): Qualifiers: GI bleed type/associated pathology: melena Qualified Code(s): K92.1 - Melena Code(s): K92.2 - Gastrointestinal hemorrhage, unspecified Status: Acute (2) Chronic anticoagulation: Code(s): Z79.01 - blade balancer (current) use of anticoagulants Status: Acute (3) AVM (arteriovenous malformation) of colon, acquired with hemorrhage: Code(s): K55.21 - Angiodysplasia of colon with hemorrhage Status: Acute (4) Cholelithiasis: Qualifiers: Cholelithiasis location: gallbladder Cholecystitis presence: with cholecystitis Cholecystitis acuity: acute and chronic Biliary obstruction: w ithout biliary obstruction Qualified Code(s): K80.12 - Calculus of gallbladder with acute and chronic cholecystitis without obstruction Code(s): K80.20 - Calculus of gallbladder without cholecystitis without obstruction Status: Acute (5) Transaminitis: Code(s): R74.01 - Elevation of levels of liver transaminase levels Status: Acute (6) Hematoma of right lower leg: Code(s): S80.11XA - Contusion of right lower leg, initial encounter Status: Acute (7) ESRD on dialysis: Code(s): N18.6 - End stage renal disease; Z99.2 - Dependence on renal dialysis Status: Acute (8) Acute hyperkalemia: Code(s): E87.5 - Hyperkalemia Status: Acute (9) Insulin dependent type 2 diabetes mellitus: Onset Date: ~2009 Code(s): E11.9 - Type 2 diabetes mellitus without complications; Z79.4 - blade balancer (current) use of insulin Status: Acute (10) Unstageable pressure ulcer of right heel: Code(s): L89.610 - Pressure ulcer of right heel, unstageable Status: Acute Plan The patient presents to the ER hypotensive. Hypotension is likely due to combination of GI bleed and possible sepsis due to underlying infection. Patient did receive 1 L fluid bolus in the ER but further fluid boluses were not continued given the patient's history of end-stage renal disease and history of difficulties with fluid overload in the past. Patient did have significant anemia with large melenic stool with recent history of cecal AVM be on chronic anticoagulation with Eliquis. Eliquis has been held. Patient's INR was elevated to 2.1 which is unusual for the patient. He has been on Eliquis for a while and usually does not have an elevated INR on prior labs. Subsequently DIC panel was obtained which demonstrated and mildly elevated D-dimer but normal fibrinogen making DIC less likely. Patient is currently receiving 2/3 units of packed red blood cells at the time my evaluation. Will transfuse 3rd unit and then repeat labs for a.m.. With the initiation of the 3rd unit of blood the patient blood pressures have stabilized and Levophed has been on hold since 3rd unit of blood has been started. Will avoid anti-platelet medications and thrombolytics. Patient has been started on IV Protonix. If hemoglobin has not stabilized after 30 unit blood transfusion or patient develops recurrent hypotension the patient may need Kcentra. Will consult Gastroenterology. Patient is NPO. The patient's CT also demonstrated edema and inflammation around the gallbladder but patient does not have any reproducible pain on palpation to the right upper quadrant. The he does have increased transaminitis compared to prior discharge values. He was started on empiric antibiotic therapy for possible cholecystitis or ascending cholangitis with Zosyn. General surgery has been consulted. Patient also has a large hematoma on the right anterior griffin that has overlying eschar scab formation. But has a large area of surrounding erythema. A area was examined with ultrasound with visualized large area fluid collection noted beneath. Patient could also have an infected hematoma at this site resulting infection. Will ask General surgery's opinion on this as well. Patient does have end-stage renal disease and receives hemodialysis Sunday. He was mildly hyperkalemic in the ER. The no evidence of peaked T-waves on telemetry and no evidence of acute dysrhythmia decompensation. Will repeat electrolyte panel in a.m.. Patient does have diabetes but is currently euglycemic. Will hold home insulin and patient has been placed on low-dose insulin correction for NPO patient with Accu-Cheks q.6 hours and hypoglycemia protocol as needed. Wound Care has been consulted for the patient's left heel decubitus ulcer. Pressure relieving boots have been ordered. Patient's home antihypertensives, aspirin and Eliquis on hold Given the patient's metabolic encephalopathy is home gabapentin, melatonin, and tramadol on hold. Patient has been admitted to the ICU and lease picker has been consulted. 80 minute spent in critical care activities. Quality If No VTE Prophylaxis Answer both mechanical and pharmacologic: Reason no mechanical VTE proph: medical contraindication (Hematoma with possible infection right leg) Reason no pharmacologic proph: medical contraindication active bleeding/bleeding risk Hospitalist MIPS Advance Care Plan I have confirmed that the patient's Advanced Care Plan is present, code status is documented, or surrogate decision maker is listed in patient medical record.: Yes Medication Reconciliation I have utilized all available resources to obtain, update and review the patients current medications (includes all prescriptions, OTC, herbals, cannabis, and nutritional supplements).: Yes
[2025-05-12] VITALS (41 sets, daily range): BP systolic 104–138; BP diastolic 55–116; PULSE 60–89; RESP 15–78; TEMP 35.9–37; O2SAT 93–100; BMI 34.0; BMI 34.7
[2025-05-12 00:27] LABS: Alveolar/Arterial O2 Gradient 64.8 mmHg; Carboxyhemoglobin 1.8 % THb (0-2.0); Fractional Inspired Oxygen 28 %; HCO3 ABG 27.1 mEq/l (22.0-26.0); Methemoglobin ABG 0.3 %THb (0-1.5); Oxygen Content ABG 10.7 %vol (16.0-22.0); Oxygen Saturation ABG 95.6 % (95.0-100.0); PCO2 ABG 46.2 mmHg (35.0-45.0); PO2 ABG 80.3 mmHg (80.0-100.0); PO2 FiO2 Ratio Arterial Blood 2.87 %; Reduced Hemoglobin 5.1 %THb (0-5.0)
[2025-05-12 00:28] LABS: Liters per Minute 2.0 LPM; Modified Allen's Test Pass; Site Drawn RIGHT RADIAL
[2025-05-12] MEDS: LACTATED RINGERS 1,000 ML 125 ML IV CONT (01:37)
[2025-05-12] MEDS: PANTOPRAZOLE SODIUM IV 40 MG VIAL IV PUSH ×3 (01:38→21:06)
[2025-05-12 04:56] LABS: Hematocrit 28.5 % (42.0-52.0); Hemoglobin 8.7 g/dL (14.0-18.0); Immature Granulocyte Percent A 1.0 % (0-0.5); Lymphocytes Absolute Auto 0.70 K/mm3 (0.9-3.2); Mean Corpuscular HGB Conc 30.5 g/dl (32-36); Mean Corpuscular Hemoglobin 26.6 pg (26-34); Mean Corpuscular Volume 87.2 fl (80-100); Nucleated Red Blood Cells Absolute Auto 0.000 K/mm3 (0.0-0.012); Nucleated Red Blood Cells Perc 0.0 % (0.0-0.2); Platelet Count Result 283 k/mm3 (150-375); Red Blood Count 3.27 M/mm3 (4.6-6.20); White Blood Count 8.2 K/mm3 (4.5-10.0)
--- NOTE | 2025-05-12 04:56 | WNDPHOTO ---
PHOTO ONLY - See Nursing Notes and/ or assessments for documentation.
[2025-05-12 05:07] LABS: INR 1.9; Prothrombin Time 21.7 Seconds (11.1-14.7)
[2025-05-12 05:08] LABS: Partial Thromboplastin Time 38.8 Seconds (22.3-36.8)
[2025-05-12 05:22] LABS: Alanine Aminotransferase 279 U/L (6-50); Albumin Level 3.0 g/dL (3.5-5.1); Alkaline Phosphatase 52 U/L (38-126); Anion Gap 10 mmol/L (4-12); Aspartate Amino Transferase 221 U/L (17-59); Bilirubin,Total 0.5 mg/dL (0.2-1.3); Blood Urea Nitrogen 74 mg/dL (9-20); Calcium 7.4 mg/dL (8.4-10.2); Carbon Dioxide 27 mmol/L (22-30); Chloride 91 mmol/L (98-107); Estimated CRCL calculation 10 ml/min; Estimated Glomerular Filt Rate 10; Glucose 123 mg/dL (65-110); Potassium 5.0 mmol/L (3.4-5.0); Sodium 128 mmol/L (137-145); Total Protein 5.3 g/dL (6.3-8.2)
[2025-05-12] MEDS: MORPHINE SULFATE (*CRX) 2 MG/ML INJ IV PUSH (05:39)
--- NOTE | 2025-05-12 08:18 | P.CONNP_ITS ---
Assessment and Plan Assessment and plan (1) End stage renal disease: Code(s): N18.6 - End stage renal disease Status: Chronic Assessment and Plan: * The patient has end-stage renal disease. * This is most likely related to his diabetes hypertension and vascular disease. * He dialyzes 3 times a week at [facility]. * HD is due today. I already talked with Fabian and he is coming in this morning * continue T/T/S outpatient dialysis schedule * Volume status seems pretty good. very little swelling * Potassium is 5.0. Will do on a 2 K bath (2) Atrial fibrillation: Code(s): I48.91 - Unspecified atrial fibrillation Status: Chronic Assessment and Plan: * he is in AFib * his rate is controlled * he is on Eliquis * see below (3) Hypercalcemia: Code(s): E83.52 - Hypercalcemia Status: Chronic Assessment and Plan: * not an issue now (4) Anemia: Code(s): D64.9 - Anemia, unspecified Status: Chronic Assessment and Plan: * due to ESRD * Epogen with HD * Hemoglobin very low this morning then got 3 transfusions (5) Essential (primary) hypertension: Code(s): I10 - Essential (primary) hypertension Status: Chronic Assessment and Plan: * Systolic was very low. Now it is okay. * Hold antihypertensives until his blood pressure starts to rise (6) IDDM (insulin dependent diabetes mellitus): Status: Chronic Assessment and Plan: * follow accu-cheks * glycemic control per hospitalist (7) Anemia requiring transfusions: Code(s): D64.9 - Anemia, unspecified Status: Acute Assessment and Plan: the patient had severe anemia. He had a black tarry stool in the emergency room apparently. He says that the last time he had any bowel movements was last Sunday evening and he was not told that that was discolored. He has bowel movements into his diapers so he does not actually see the bowel movement himself. He has not had any belly pain. Occasionally, however he does have some abdominal discomfort before a bowel movement but it is relieved with a bowel movement. He has had no nausea or vomiting etiology of the bleeding could be from a recurrence of bleeding from the angiodysplasia of the colon seen last month. The patient is getting pantoprazole perhaps we just need to indefinitely stop the Eliquis? the patient was shocky when he came in. Cultures were done antibiotics have been started In case of sepsis History of Present Illness Reason for Consult Consult date: 05/12/25 Chief Complaint Chief complaint: Cholecystitis/Cholangitis with shock, Acute on chr Review of Systems 2 Constitutional: Constitutional: Reports no additional constitutional complaints Eyes: Eyes: Reports no additional eye complaints ENT: Reports system reviewed and no additional complaints, except as documented Cardiovascular: Cardiovascular: Reports no additional cardiovascular complaints Respiratory: Respiratory: Reports no additional respiratory complaints Gastrointestinal: Gastrointestinal: Reports no additional gastrointestinal complaints Genitourinary: Genitourinary: Reports no additional male genitourinary complaints Musculoskeletal: Musculoskeletal: Reports no additional musculoskeletal complaints Integumentary/Breasts: Skin/Breast: Reports system reviewed and no additional complaints, except as docu Neurologic: Reports system reviewed and no additional complaints, except as documented Psychiatric: Psychiatric: Reports no additional psychiatric complaints Endocrine: Endocrine: Reports no additional endocrine complaints [facility] Past Medical History Medical History Pulmonary hypertension AVM (arteriovenous malformation) of colon, acquired with hemorrhage Chronic anticoagulation Diabetic polyneuropathy Insomnia History of nephrolithiasis Chronic neck and back pain Atrial fibrillation Anemia Sinus pause (~09/2024) Obstructive sleep apnea Intolerant to CPAP Insulin dependent type 2 diabetes mellitus (~2009) Chronic obstructive pulmonary disease Coronary artery disease Benign prostatic hyperplasia Peripheral vascular disease (~03/2023) Internal hemorrhoid, bleeding End-stage renal disease on hemodialysis DVT dialysis Sunday History of colon polyps Environmental allergies Vitamin D deficiency Dyslipidemia Essential (primary) hypertension Surgical History Surgical History Status post cataract extraction of both eyes with insertion of intraocular lens History of colonoscopy with polypectomy History of cardiac pacemaker (~10/2024) Medtronic pacemaker placed due to symptomatic sinus pauses causing syncope performed at [facility] History of hemorrhoidectomy (~01/12/24) Anorectal evaluation under anesthesia and excisional hemorrhoidectomy x3 12/14/23 SAW S/P peripheral artery angioplasty (~03/2023) status post balloon angioplasty of bilateral common and external iliac arteries status post left iliofemoral endarterectomy Arteriovenous fistula of left upper extremity (~2017) History of appendectomy (~1963) History of coronary artery bypass graft (~2013) Family History Family History Mother Diabetes mellitus Acute myocardial infarction Family history of congestive heart failure Father Hypertension Social History Social History Social History: The patient is . He and his brother live together prior to his hospitalization November or December 2024 and subsequent placement in to [facility]. He is retired after 26 years of serving in the [employer]. He has 4 children. He used to smoke 1.5-2 packs of cigarettes per day but quit smoking in approximately 2009. He will on a rare occasion drink an alcoholic beverage maybe 2 to 3 times a year. He denies illicit substance use. Surrogate medical decision maker: Wilian Finleyn, sibling. Code status: Full code. Caffeine- daily Smoking packs per day: 1.5 Smoking cigarettes per day: 30.0 Years smoked: 44 Smoking pack-years: 66.00 Smoking status: Former smoker Second hand tobacco smoke exposure: No Alcohol intake: unknown Alcohol use details: Maybe 2-3 per year Substance use: never Substance use type: does not use Do You Feel Safe in your Home?: Yes Lack of Transportation: No Lack of Food: Never True Current Housing: I Have Housing Concerned About Future Housing: No Difficulty Paying Gas/Electric Bills: No Difficulty Paying for Meds: No Currently Unemployed: No Education: Don't Know Difficulty w/ Childcare or Family Care: No Living arrangements: with family Occupation/Education: retired Additional occupation/education comments: Retired from the [employer]. 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 Spiritual care concerns: No Agree to blood products: Yes Meds Home Medications and Allergies Home Medications ?Medication ?Instructions ?Recorded ?Confirmed ?Type aspirin 81 mg tablet,delayed 81 mg PO DAILY 10/31/21 05/12/25 History release carvedilol 25 mg tablet 25 mg PO BID 10/31/21 05/12/25 History insulin lispro 100 unit/mL 4 unit subcut .TIDAC 10/31/21 05/12/25 History subcutaneous pen loratadine 10 mg tablet (Claritin) 10 mg PO DAILY 10/31/21 05/12/25 History insulin glargine 100 unit/mL (3 6 unit subcut HS 11/07/23 05/12/25 History mL) subcutaneous pen (Lantus Solostar U-100 Insulin) cinacalcet 90 mg PO DAILY 12/12/23 05/12/25 History atorvastatin 20 mg tablet 20 mg PO HS 12/21/24 05/12/25 History finasteride 5 mg tablet (Proscar) 5 mg PO QAM #30 tabs 12/23/24 05/12/25 Rx furosemide 80 mg tablet 80 mg PO BID #60 tabs 12/23/24 05/12/25 Rx tamsulosin 0.4 mg capsule 0.4 mg PO QHS #30 caps 12/23/24 05/12/25 Rx acetaminophen 325 mg tablet 650 mg (2 x 325 mg) PO Q4H PRN 01/10/25 05/12/25 Rx Mild Pain (1-3) Or Fever #60 tabs pentoxifylline 400 mg 400 mg PO QPM 01/29/25 05/12/25 History tablet,extended release amlodipine 10 mg tablet 10 mg PO DAILY 02/16/25 05/12/25 History bisacodyl 10 mg rectal suppository 10 mg RECTAL DAILY PRN constipation 02/16/25 05/12/25 History (Laxative (bisacodyl)) gabapentin 100 mg capsule 100 mg PO TID 02/16/25 05/12/25 History liraglutide 0.6 mg/0.1 mL (18 mg/3 1.2 mg subcut HS 02/16/25 05/12/25 History mL) subcutaneous pen injector magnesium citrate (Citroma oral 296 ml PO .AM PRN constipation 02/16/25 05/12/25 History solution) magnesium hydroxide 400 mg/5 mL 30 ml PO HS PRN constipation 02/16/25 05/12/25 History oral suspension (Milk of Magnesia) sodium phosphates 19 gram-7 118 ml RECTAL DAILY PRN 02/16/25 05/12/25 History gram/118 mL enema (Fleet Enema) constipation vitamin B complex 1 cap PO DAILY 02/16/25 05/12/25 History ipratropium 20 mcg-albuterol 100 1 puff inhalation Q6H PRN 03/10/25 05/12/25 History mcg/actuation mist for inhalation shortness of breath or wheezing (Combivent Respimat) loperamide 2 mg capsule 2 mg PO Q4H PRN loose stool 03/10/25 05/12/25 History melatonin 3 mg tablet 3 mg PO HS 03/10/25 05/12/25 History tramadol 50 mg tablet 50 mg PO BID 03/10/25 05/12/25 History umeclidinium 62.5 mcg/actuation 1 inh inhalation DAILY 03/10/25 05/12/25 History blister powder for inhalation (Incruse Ellipta) levalbuterol HCl 0.63 mg/3 mL 0.63 mg (3 mL) inhalation Q6H PRN 03/19/25 05/12/25 Rx solution for nebulization shortness of breath or wheezing #90 mL levalbuterol HCl 1.25 mg/3 mL 0.63 mg (1.512 mL) inhalation 03/19/25 05/12/25 Rx solution for nebulization Q6HRT #30 vials sevelamer carbonate 0.8 gram oral 0.8 g PO TIDWM #60 grams 03/19/25 05/12/25 Rx powder packet apixaban 2.5 mg tablet (Eliquis) 2.5 mg PO Q12HR #60 tabs 03/27/25 05/12/25 Rx Allergies Allergy/AdvReac Type Severity Reaction Status Date / Time baclofen Allergy Severe encephalopa Verified 05/12/25 00:25 thy Vital Signs Vital Signs - 24 hr 05/11/25 17:49 05/11/25 17:50 05/11/25 17:51 Temperature 97.8 F Pulse Rate 72 75 69 Respiratory Rate 22 H 21 H 22 H Blood Pressure 98/55 L 98/55 L Pulse Oximetry 99 100 99 Oxygen Delivery Room Air Oxygen Flow Rate 05/11/25 17:55 05/11/25 18:00 05/11/25 18:05 Temperature Pulse Rate 74 69 Respiratory Rate 22 H 21 H 10 L Blood Pressure 88/58 L Pulse Oximetry 100 100 100 Oxygen Delivery Oxygen Flow Rate 05/11/25 18:18 05/11/25 18:39 05/11/25 19:07 Temperature Pulse Rate 72 74 71 Respiratory Rate 14 24 H 23 H Blood Pressure 89/51 L Pulse Oximetry 100 96 99 Oxygen Delivery Oxygen Flow Rate 05/11/25 19:34 05/11/25 19:47 05/11/25 20:00 Temperature Pulse Rate 64 66 66 Respiratory Rate 22 H 20 21 H Blood Pressure 93/46 L 88/51 L Pulse Oximetry 99 100 Oxygen Delivery Oxygen Flow Rate 05/11/25 20:01 05/11/25 20:28 05/11/25 20:30 Temperature Pulse Rate 65 69 68 Respiratory Rate 21 H 21 H 22 H Blood Pressure Pulse Oximetry 100 99 Oxygen Delivery Oxygen Flow Rate 05/11/25 20:42 05/11/25 20:45 05/11/25 20:46 Temperature Pulse Rate 62 65 64 Respiratory Rate 15 11 L Blood Pressure 79/43 L 79/47 L Pulse Oximetry 99 Oxygen Delivery Oxygen Flow Rate 05/11/25 21:06 05/11/25 21:23 05/11/25 21:37 Temperature 97.7 F 97.5 F L Pulse Rate 70 66 70 Respiratory Rate 19 19 21 H Blood Pressure 78/45 L 86/57 L Pulse Oximetry 100 100 100 Oxygen Delivery Oxygen Flow Rate 05/11/25 21:40 05/11/25 21:44 05/11/25 21:45 Temperature Pulse Rate 67 64 62 Respiratory Rate 19 18 Blood Pressure 90/59 L 90/59 L Pulse Oximetry 100 100 Oxygen Delivery Oxygen Flow Rate 05/11/25 21:50 05/11/25 21:52 05/11/25 21:57 Temperature 97.6 F 97.6 F Pulse Rate 70 66 70 Respiratory Rate 17 17 19 Blood Pressure 93/62 L 93/62 L 93/62 L Pulse Oximetry 100 100 100 Oxygen Delivery Oxygen Flow Rate 05/11/25 22:00 05/11/25 22:01 05/11/25 22:10 Temperature Pulse Rate 69 69 67 Respiratory Rate 18 17 18 Blood Pressure 107/59 L 104/66 Pulse Oximetry 100 Oxygen Delivery Oxygen Flow Rate 05/11/25 22:12 05/11/25 22:15 05/11/25 22:20 Temperature 97.5 F L Pulse Rate 69 67 66 Respiratory Rate 16 18 19 Blood Pressure 104/66 114/65 Pulse Oximetry 99 99 99 Oxygen Delivery Oxygen Flow Rate 05/11/25 22:30 05/11/25 22:31 05/11/25 22:40 Temperature Pulse Rate 66 65 73 Respiratory Rate 16 18 19 Blood Pressure 108/62 120/84 Pulse Oximetry 100 100 99 Oxygen Delivery Oxygen Flow Rate 05/11/25 22:45 05/11/25 22:50 05/11/25 23:37 Temperature Pulse Rate 69 76 76 Respiratory Rate 19 18 18 Blood Pressure 111/73 111/73 Pulse Oximetry 99 Oxygen Delivery Oxygen Flow Rate 05/11/25 23:45 05/11/25 23:45 05/12/25 00:00 Temperature 97.8 F Pulse Rate 70 70 67 Respiratory Rate 19 Blood Pressure 133/79 133/79 135/68 Pulse Oximetry 99 Oxygen Delivery Oxygen Flow Rate 05/12/25 00:00 05/12/25 00:00 05/12/25 00:00 Temperature 98.5 F Pulse Rate 67 67 Respiratory Rate 19 Blood Pressure 135/68 Pulse Oximetry 99 99 Oxygen Delivery Nasal Cannula Oxygen Flow Rate 2 05/12/25 00:15 05/12/25 00:20 05/12/25 01:00 Temperature Pulse Rate 67 69 Respiratory Rate 78 H Blood Pressure 116/69 129/72 Pulse Oximetry 99 Oxygen Delivery Nasal Cannula Oxygen Flow Rate 2 05/12/25 01:15 05/12/25 01:27 05/12/25 01:42 Temperature 98.1 F 97.9 F 98.0 F Pulse Rate 70 70 66 Respiratory Rate 18 16 16 Blood Pressure 108/58 L 108/58 L 118/58 L Pulse Oximetry 100 100 100 Oxygen Delivery Oxygen Flow Rate 05/12/25 02:00 05/12/25 02:00 05/12/25 02:00 Temperature Pulse Rate 60 68 63 Respiratory Rate 16 Blood Pressure 107/63 107/63 Pulse Oximetry 100 Oxygen Delivery Oxygen Flow Rate 05/12/25 02:42 05/12/25 03:42 05/12/25 04:00 Temperature 97.3 F L 98.0 F 97.3 F L Pulse Rate 64 65 64 Respiratory Rate 16 16 16 Blood Pressure 112/61 120/72 112/63 Pulse Oximetry 100 99 98 Oxygen Delivery Oxygen Flow Rate 05/12/25 04:00 05/12/25 04:00 05/12/25 04:00 Temperature 97.0 F L Pulse Rate 66 66 Respiratory Rate 16 Blood Pressure 112/63 Pulse Oximetry 100 100 Oxygen Delivery Nasal Cannula Oxygen Flow Rate 2 05/12/25 04:00 05/12/25 06:00 05/12/25 06:00 Temperature Pulse Rate 66 61 66 Respiratory Rate 16 Blood Pressure 112/63 104/58 L Pulse Oximetry 99 Oxygen Delivery Oxygen Flow Rate 05/12/25 06:00 Temperature Pulse Rate 66 Respiratory Rate Blood Pressure 104/58 L Pulse Oximetry Oxygen Delivery Oxygen Flow Rate Exam 2 Narrative: Exam Narrative: Well developed well-nourished male in no acute distress Skin is warm and dry without rash Head normocephalic atraumatic Eyes normal sclerae and conjunctivae Mouth normal lips teeth and gums Neck no nodes no thyromegaly no carotid bruits Axillae no nodes Back no CVA tenderness Lungs symmetric and clear to auscultation and percussion Heart irrregular rhythm and controlled rate without rub or gallop Abdomen bowel sounds positive soft nontender, no HSM, masses, or bruits. Extremities no cyanosis, clubbing, or edema. Bilateral heel eschars. Right anterior griffin hematoma with an eschar on that as well. The erythema is a little further out then the pen autumn which was placed by Dr. Booth last visit. Pulses 2+ equal in radial arteries Psychological not anxious or depressed Neuro alert and oriented x3 motor 5/5 cranial nerves 2-12 intact reflexes 2+ and equal in the biceps and patellar tendons cerebellar normal rapid alternating movements Results Lab Results 05/12/25 04:38 05/12/25 04:38 Lab results: Most recent lab results ABG pH 7.386 (7.350-7.450) 05/12/25 00:13 ABG pCO2 46.2 mmHg (35.0-45.0) H 05/12/25 00:13 ABG pO2 80.3 mmHg (80.0-100.0) 05/12/25 00:13 ABG HCO3 27.1 mEq/l (22.0-26.0) H 05/12/25 00:13 ABG O2 Saturation 95.6 % (95.0-100.0) 05/12/25 00:13 Calcium 7.4 mg/dL (8.4-10.2) L 05/12/25 04:38 Phosphorus 6.4 mg/dL (2.5-4.5) H 05/12/25 04:38 Magnesium 2.2 mg/dL (1.6-2.3) 05/11/25 18:39
[2025-05-12] MEDS: PIPERACILLIN/TAZOBACTAM SOD 2.25 GM in SODIUM CHLORIDE 0.9% IV 50 ML 100 ML IVPB ×3 (08:37→23:39)
[2025-05-12] MEDS: UMECLIDINIUM BROMIDE 62.5 MCG ELLIPTA 1 PUFF INHALATION (08:50)
[2025-05-12] MEDS: LORATADINE 10 MG TABLET PO (08:53)
[2025-05-12] MEDS: FINASTERIDE 5 MG TABLET PO (08:53)
[2025-05-12] MEDS: SEVELAMER CARBONATE 0.8 GM ORAL POWDER PACKET PO ×3 (08:53→16:41)
[2025-05-12] MEDS: ACETAMINOPHEN 325 MG TABLET 650 MG PO ×2 (08:53→17:22)
--- NOTE | 2025-05-12 09:06 | P.CONIN_ITS ---
Assessment and Plan Assessment and plan (1) Anemia: Code(s): D64.9 - Anemia, unspecified Status: Acute Assessment and Plan: Patient presented with lethargy, multiple melanotic stools, generalized weakness, hemoglobin of 5.2 on admission -patient received a couple L of IV fluid bolus -3 units of packed RBCs were transfused, repeat hemoglobin 8.7 -repeat hemoglobin much improved -continue to monitor hemoglobin level -patient on Eliquis for paroxysmal AFib -GI has been consulted (2) GI (gastrointestinal bleed): Qualifiers: GI bleed type/associated pathology: melena Qualified Code(s): K92.1 - Melena Code(s): K92.2 - Gastrointestinal hemorrhage, unspecified Status: Acute Assessment and Plan: Patient has a history of AVM of the cecum -GI to evaluate (3) ESRD on dialysis: Code(s): N18.6 - End stage renal disease; Z99.2 - Dependence on renal dialysis Status: Acute Assessment and Plan: End-stage renal disease on hemodialysis Tuesdays, and Saturdays. Last dialysis was done on 05/09/2025 Nephrology following the patient, -dialysis per Nephrology (4) Atrial fibrillation: Code(s): I48.91 - Unspecified atrial fibrillation Status: Chronic Assessment and Plan: History of atrial fibrillation, currently rate controlled -will hold Eliquis since patient has GI bleed with severe anemia (5) Transaminitis: Code(s): R74.01 - Elevation of levels of liver transaminase levels Status: Acute Assessment and Plan: Transaminitis could be related to hypotension, severe anemia -LFTs trending down 05/11: CTA abdomen and pelvis: Hepatomegaly with mild periportal edema and mild perihepatic fluid. Pericholecystic fluid with fluid/inflammation in the min hepatis and surrounding the extrahepatic bile ducts. Consider hepatitis, cholecystitis, and cholangitis in the differential. Bladder wall thickening may be secondary to cystitis or chronic outlet obstruction from prostatomegaly. (6) Hematoma of right lower leg: Code(s): S80.11XA - Contusion of right lower leg, initial encounter Status: Acute Assessment and Plan: Hematoma on right lower extremity, fluctuant -surgery has been consulted for possible I and D if appropriate (7) Type 2 diabetes mellitus, with long-term current use of insulin: Qualifiers: Diabetes mellitus complication status: with neurologic complications D iabetes mellitus complication detail: with polyneuropathy Qualified Code(s): E 11.42 - Type 2 diabetes mellitus with diabetic polyneuropathy; Z79.4 - [facility] (current) use of insulin Code(s): E11.9 - Type 2 diabetes mellitus without complications; 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 Status: Acute Assessment and Plan: Accu-Cheks and sliding scale insulin (8) Pressure ulcer of heel: Code(s): L89.609 - Pressure ulcer of unspecified heel, unspecified stage Status: Acute Assessment and Plan: Wound care consulted for eschar on heels (9) Shock circulatory: Code(s): R57.9 - Shock, unspecified Status: Acute Assessment and Plan: Patient was hypotensive, refractory to IV fluids and packed RBCs, -briefly on norepinephrine, currently off with adequate blood pressure -continue to monitor -lactic acid was 1.4, WBC 8.2 -on Zosyn and vancomycin (05/11) Plan DVT prophylaxis: Low chemoprophylaxis secondary to severe anemia Stress ulcer prophylaxis: Protonix IV q.12 hours Nutrition: NPO for now Code Status: Full code Critical Care Time Spent: 51 minutes Discussed with patient and his brother at bedside and updated them with a this condition and plan of care. I answered all questions Due to a high probability of clinically significant, life threatening deterioration, the patient required my highest level of preparedness to intervene emergently and I personally spent this critical care time directly and personally managing the patient. This critical care time included obtaining a history; examining the patient; pulse oximetry; ordering and review of studies; arranging urgent treatment with development of a management plan; evaluation of patient's response to treatment; frequent reassessment; and discussions with other providers. It was exclusive of separately billable procedures and treating other patients and teaching time. Please see Assessment and Plan section and the rest of the note for further information on patient assessment and treatment This dictation may have been done utilizing a voice recognition system. Attempts have been made to correct errors. However, there may be uncorrected grammatical, spelling, and recognitions errors present. Crime Data Specialist Consult Note Consult date: 05/12/25 Reason for consult: Severe anemia hypotension, abdominal pain generalized weakness and worn out, ESRD HPI: Sam Morrissey is a 79 year old male with significant past medical history of COPD, on 2 L nasal cannula at baseline, diabetes type 2, essential hypertension, paroxysmal AFib on chronic anticoagulation with Eliquis, peripheral arterial disease,, obstructive sleep apnea, ESRD on dialysis T/Sun presented the ED on [facility]/11/2025 from [facility] for concerns of generalized weakness, lethargy and anemia. He was recently admitted for GI bleed and has known cecal AVMs. Patient was discharged on 04/28/2025 we was admitted for anemia and transient abdominal pain elevated AST and ALT. Surgery evaluated the patient at that time and abdominal pain resolved with conservative management. Patient did have multiple melanotic stool, 1 of them in the ER On this admission patient had low blood pressures, hemoglobin of 5.2, WBC count 8.7, platelets 310. Sodium 127, Potassium of 5.4, CO2 29, BUN 78, creatinine 5.57, blood sugars 120. Lactic acid 1.5. Total bili 0.3, AST 417, ALT 337, alk-phos 58 for. CTA scan of the abdomen and pelvis: Hepatomegaly with mild periportal edema and mild perihepatic fluid. Yoon cholecystic fluid with fluid/inflammation the min hepaticus and surrounding the extrahepatic bile ducts. Consider hepatitis, cholecystitis and cholangitis in the differential. Bladder wall thickening may be secondary cystitis or chronic outlet obstruction from prostatomegaly. Extensive arthrosclerotic disease Patient seen and examined the ICU this morning, he received 2 L of IV fluid bolus in the ER, 3 units of packed RBCs were transfused. Patient was briefly started on norepinephrine is off since midnight. Patient is awake, alert, oriented x3, nonfocal, answers all questions appropriately. Hemodynamically stable, anuric due to end-stage renal disease on dialysis. Patient complains of right lower extremity pain, has a wound that he says he accidentally hit his griffin on wheelchair. Denies any chest pain, shortness with abdominal pain, nausea, vomiting. Review of Systems 2 Review of Systems: All systems reviewed & are unremarkable except as noted in HPI and below [facility] Past Medical History Medical History (Updated 05/12/25 @ 09:42 by EDNA Aguilar) Shock circulatory Pulmonary hypertension AVM (arteriovenous malformation) of colon, acquired with hemorrhage Chronic anticoagulation Insulin dependent type 2 diabetes mellitus (~2009) Chronic obstructive pulmonary disease Diabetic polyneuropathy Coronary artery disease Anemia Atrial fibrillation Chronic neck and back pain Insomnia History of nephrolithiasis Sinus pause (~09/2024) Obstructive sleep apnea Intolerant to CPAP Benign prostatic hyperplasia Peripheral vascular disease (~03/2023) Internal hemorrhoid, bleeding End-stage renal disease on hemodialysis DVT dialysis Sunday History of colon polyps Environmental allergies Vitamin D deficiency Dyslipidemia Essential (primary) hypertension Surgical History Surgical History History of cardiac pacemaker (~10/2024) Medtronic pacemaker placed due to symptomatic sinus pauses causing syncope performed at [facility] Status post cataract extraction of both eyes with insertion of intraocular lens History of colonoscopy with polypectomy History of hemorrhoidectomy (~01/12/24) Anorectal evaluation under anesthesia and excisional hemorrhoidectomy x3 12/14/23 SAW S/P peripheral artery angioplasty (~03/2023) status post balloon angioplasty of bilateral common and external iliac arteries status post left iliofemoral endarterectomy Arteriovenous fistula of left upper extremity (~2017) History of appendectomy (~1962) History of coronary artery bypass graft (~2013) Family History Family History Mother Diabetes mellitus Acute myocardial infarction Family history of congestive heart failure Father Hypertension Social History Social History Social History: The patient is . He and his brother live together prior to his hospitalization November or December 2024 and subsequent placement in to [facility]. He is retired after 26 years of serving in the [employer]. He has 4 children. He used to smoke 1.5-2 packs of cigarettes per day but quit smoking in approximately 2009. He will on a rare occasion drink an alcoholic beverage maybe 2 to 3 times a year. He denies illicit substance use. Surrogate medical decision maker: Wilianisael Morrissey, sibling. Code status: Full code. Caffeine- daily Smoking packs per day: 1.5 Smoking cigarettes per day: 30.0 Years smoked: 44 Smoking pack-years: 66.00 Smoking status: Former smoker Second hand tobacco smoke exposure: No Alcohol intake: unknown Alcohol use details: Maybe 2-3 per year Substance use: never Substance use type: does not use Do You Feel Safe in your Home?: Yes Lack of Transportation: No Lack of Food: Never True Current Housing: I Have Housing Concerned About Future Housing: No Difficulty Paying Gas/Electric Bills: No Difficulty Paying for Meds: No Currently Unemployed: No Education: Don't Know Difficulty w/ Childcare or Family Care: No Living arrangements: with family Occupation/Education: retired Additional occupation/education comments: Retired from the [employer]. 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 Spiritual care concerns: No Agree to blood products: Yes Meds Home Medications and Allergies Home Medications ?Medication ?Instructions ?Recorded ?Confirmed ?Type aspirin 81 mg tablet,delayed 81 mg PO DAILY 10/31/21 05/12/25 History release carvedilol 25 mg tablet 25 mg PO BID 10/31/21 05/12/25 History insulin lispro 100 unit/mL 4 unit subcut .TIDAC 10/31/21 05/12/25 History subcutaneous pen loratadine 10 mg tablet (Claritin) 10 mg PO DAILY 10/31/21 05/12/25 History insulin glargine 100 unit/mL (3 6 unit subcut HS 11/07/23 05/12/25 History mL) subcutaneous pen (Lantus Solostar U-100 Insulin) cinacalcet 90 mg PO DAILY 12/12/23 05/12/25 History atorvastatin 20 mg tablet 20 mg PO HS 12/21/24 05/12/25 History finasteride 5 mg tablet (Proscar) 5 mg PO QAM #30 tabs 12/23/24 05/12/25 Rx furosemide 80 mg tablet 80 mg PO BID #60 tabs 12/23/24 05/12/25 Rx tamsulosin 0.4 mg capsule 0.4 mg PO QHS #30 caps 12/23/24 05/12/25 Rx acetaminophen 325 mg tablet 650 mg (2 x 325 mg) PO Q4H PRN 01/10/25 05/12/25 Rx Mild Pain (1-3) Or Fever #60 tabs pentoxifylline 400 mg 400 mg PO QPM 01/29/25 05/12/25 History tablet,extended release amlodipine 10 mg tablet 10 mg PO DAILY 02/16/25 05/12/25 History bisacodyl 10 mg rectal suppository 10 mg RECTAL DAILY PRN constipation 02/16/25 05/12/25 History (Laxative (bisacodyl)) gabapentin 100 mg capsule 100 mg PO TID 02/16/25 05/12/25 History liraglutide 0.6 mg/0.1 mL (18 mg/3 1.2 mg subcut HS 02/16/25 05/12/25 History mL) subcutaneous pen injector magnesium citrate (Citroma oral 296 ml PO .AM PRN constipation 02/16/25 05/12/25 History solution) magnesium hydroxide 400 mg/5 mL 30 ml PO HS PRN constipation 02/16/25 05/12/25 History oral suspension (Milk of Magnesia) sodium phosphates 19 gram-7 118 ml RECTAL DAILY PRN 02/16/25 05/12/25 History gram/118 mL enema (Fleet Enema) constipation vitamin B complex 1 cap PO DAILY 02/16/25 05/12/25 History ipratropium 20 mcg-albuterol 100 1 puff inhalation Q6H PRN 03/10/25 05/12/25 History mcg/actuation mist for inhalation shortness of breath or wheezing (Combivent Respimat) loperamide 2 mg capsule 2 mg PO Q4H PRN loose stool 03/10/25 05/12/25 History melatonin 3 mg tablet 3 mg PO HS 03/10/25 05/12/25 History tramadol 50 mg tablet 50 mg PO BID 03/10/25 05/12/25 History umeclidinium 62.5 mcg/actuation 1 inh inhalation DAILY 03/10/25 05/12/25 History blister powder for inhalation (Incruse Ellipta) levalbuterol HCl 0.63 mg/3 mL 0.63 mg (3 mL) inhalation Q6H PRN 03/19/25 05/12/25 Rx solution for nebulization shortness of breath or wheezing #90 mL levalbuterol HCl 1.25 mg/3 mL 0.63 mg (1.512 mL) inhalation 03/19/25 05/12/25 Rx solution for nebulization Q6HRT #30 vials sevelamer carbonate 0.8 gram oral 0.8 g PO TIDWM #60 grams 03/19/25 05/12/25 Rx powder packet apixaban 2.5 mg tablet (Eliquis) 2.5 mg PO Q12HR #60 tabs 03/27/25 05/12/25 Rx Allergies Allergy/AdvReac Type Severity Reaction Status Date / Time baclofen Allergy Severe encephalopa Verified 05/12/25 00:25 thy Vital Signs Vital Signs - 24 hr 05/11/25 17:49 05/11/25 17:50 05/11/25 17:51 Temperature 97.8 F Pulse Rate 72 75 69 Respiratory Rate 22 H 21 H 22 H Blood Pressure 98/55 L 98/55 L Pulse Oximetry 99 100 99 Oxygen Delivery Room Air Oxygen Flow Rate 05/11/25 17:55 05/11/25 18:00 05/11/25 18:05 Temperature Pulse Rate 74 69 Respiratory Rate 22 H 21 H 10 L Blood Pressure 88/58 L Pulse Oximetry 100 100 100 Oxygen Delivery Oxygen Flow Rate 05/11/25 18:18 05/11/25 18:39 05/11/25 19:07 Temperature Pulse Rate 72 74 71 Respiratory Rate 14 24 H 23 H Blood Pressure 89/51 L Pulse Oximetry 100 96 99 Oxygen Delivery Oxygen Flow Rate 05/11/25 19:34 05/11/25 19:47 05/11/25 20:00 Temperature Pulse Rate 64 66 66 Respiratory Rate 22 H 20 21 H Blood Pressure 93/46 L 88/51 L Pulse Oximetry 99 100 Oxygen Delivery Oxygen Flow Rate 05/11/25 20:01 05/11/25 20:28 05/11/25 20:30 Temperature Pulse Rate 65 69 68 Respiratory Rate 21 H 21 H 22 H Blood Pressure Pulse Oximetry 100 99 Oxygen Delivery Oxygen Flow Rate 05/11/25 20:42 05/11/25 20:45 05/11/25 20:46 Temperature Pulse Rate 62 65 64 Respiratory Rate 15 11 L Blood Pressure 79/43 L 79/47 L Pulse Oximetry 99 Oxygen Delivery Oxygen Flow Rate 05/11/25 21:06 05/11/25 21:23 05/11/25 21:37 Temperature 97.7 F 97.5 F L Pulse Rate 70 66 70 Respiratory Rate 19 19 21 H Blood Pressure 78/45 L 86/57 L Pulse Oximetry 100 100 100 Oxygen Delivery Oxygen Flow Rate 05/11/25 21:40 05/11/25 21:44 05/11/25 21:45 Temperature Pulse Rate 67 64 62 Respiratory Rate 19 18 Blood Pressure 90/59 L 90/59 L Pulse Oximetry 100 100 Oxygen Delivery Oxygen Flow Rate 05/11/25 21:50 05/11/25 21:52 05/11/25 21:57 Temperature 97.6 F 97.6 F Pulse Rate 70 66 70 Respiratory Rate 17 17 19 Blood Pressure 93/62 L 93/62 L 93/62 L Pulse Oximetry 100 100 100 Oxygen Delivery Oxygen Flow Rate 05/11/25 22:00 05/11/25 22:01 05/11/25 22:10 Temperature Pulse Rate 69 69 67 Respiratory Rate 18 17 18 Blood Pressure 107/59 L 104/66 Pulse Oximetry 100 Oxygen Delivery Oxygen Flow Rate 05/11/25 22:12 05/11/25 22:15 05/11/25 22:20 Temperature 97.5 F L Pulse Rate 69 67 66 Respiratory Rate 16 18 19 Blood Pressure 104/66 114/65 Pulse Oximetry 99 99 99 Oxygen Delivery Oxygen Flow Rate 05/11/25 22:30 05/11/25 22:31 05/11/25 22:40 Temperature Pulse Rate 66 65 73 Respiratory Rate 16 18 19 Blood Pressure 108/62 120/84 Pulse Oximetry 100 100 99 Oxygen Delivery Oxygen Flow Rate 05/11/25 22:45 05/11/25 22:50 05/11/25 23:37 Temperature Pulse Rate 69 76 76 Respiratory Rate 19 18 18 Blood Pressure 111/73 111/73 Pulse Oximetry 99 Oxygen Delivery Oxygen Flow Rate 05/11/25 23:45 05/11/25 23:45 05/12/25 00:00 Temperature 97.8 F Pulse Rate 70 70 67 Respiratory Rate 19 Blood Pressure 133/79 133/79 135/68 Pulse Oximetry 99 Oxygen Delivery Oxygen Flow Rate 05/12/25 00:00 05/12/25 00:00 05/12/25 00:00 Temperature 98.5 F Pulse Rate 67 67 Respiratory Rate 19 Blood Pressure 135/68 Pulse Oximetry 99 99 Oxygen Delivery Nasal Cannula Oxygen Flow Rate 2 05/12/25 00:15 05/12/25 00:20 05/12/25 01:00 Temperature Pulse Rate 67 69 Respiratory Rate 78 H Blood Pressure 116/69 129/72 Pulse Oximetry 99 Oxygen Delivery Nasal Cannula Oxygen Flow Rate 2 05/12/25 01:15 05/12/25 01:27 05/12/25 01:42 Temperature 98.1 F 97.9 F 98.0 F Pulse Rate 70 70 66 Respiratory Rate 18 16 16 Blood Pressure 108/58 L 108/58 L 118/58 L Pulse Oximetry 100 100 100 Oxygen Delivery Oxygen Flow Rate 05/12/25 02:00 05/12/25 02:00 05/12/25 02:00 Temperature Pulse Rate 60 68 63 Respiratory Rate 16 Blood Pressure 107/63 107/63 Pulse Oximetry 100 Oxygen Delivery Oxygen Flow Rate 05/12/25 02:42 05/12/25 03:42 05/12/25 04:00 Temperature 97.3 F L 98.0 F 97.3 F L Pulse Rate 64 65 64 Respiratory Rate 16 16 16 Blood Pressure 112/61 120/72 112/63 Pulse Oximetry 100 99 98 Oxygen Delivery Oxygen Flow Rate 05/12/25 04:00 05/12/25 04:00 05/12/25 04:00 Temperature 97.0 F L Pulse Rate 66 66 Respiratory Rate 16 Blood Pressure 112/63 Pulse Oximetry 100 100 Oxygen Delivery Nasal Cannula Oxygen Flow Rate 2 05/12/25 04:00 05/12/25 06:00 05/12/25 06:00 Temperature Pulse Rate 66 61 66 Respiratory Rate 16 Blood Pressure 112/63 104/58 L Pulse Oximetry 99 Oxygen Delivery Oxygen Flow Rate 05/12/25 06:00 05/12/25 08:00 05/12/25 08:40 Temperature 97.7 F Pulse Rate 66 68 Respiratory Rate 18 Blood Pressure 104/58 L 107/55 L Pulse Oximetry 99 99 Oxygen Delivery Nasal Cannula Oxygen Flow Rate 2 05/12/25 08:41 05/12/25 08:50 Temperature Pulse Rate 68 69 Respiratory Rate 17 19 Blood Pressure Pulse Oximetry Oxygen Delivery Oxygen Flow Rate Exam 2 Narrative: General: Pleasant gentleman in no acute distress HEENT:? Pupils equal and reactive, Sclera is clear, moist oral mucosa Neck:? Supple Respiratory:? Clear to auscultation bilaterally, no wheezing, decreased air entry at bases Cardiac:? Irregularly irregular, rate controlled Abdomen:? Soft, nontender, nondistended, normoactive bowel sounds Extremities:? Trace edema, palpable pedal pulses Neuro:? Patient is awake, alert, oriented x3, nonfocal, answers to questions appropriately and follows simple commands in all extremities Skin:? Right griffin wound and swelling with fluctuation noted. Bilateral heel eschars noted Psych:? Normal mentation and affect Results Labs 05/12/25 04:38 05/12/25 04:38 Labs: Short CBC 05/11/25 05/12/25 Range/Units 18:39 04:38 WBC 8.7 8.2 (4.5-10.0) K/mm3 Hgb 5.2 L* D 8.7 L D (14.0-18.0) g/dL Hct 17.6 L* 28.5 L (42.0-52.0) % Plt Count 310 283 (150-375) k/mm3 BMP 05/11/25 05/12/25 18:39 04:38 Sodium 127 L 128 L Potassium 5.4 H 5.0 Chloride 87 L 91 L Carbon Dioxide 29 27 BUN 78 H D 74 H Creatinine 5.57 H 5.43 H Glucose 120 H 123 H Calcium 7.9 L 7.4 L Liver Function 05/11/25 05/12/25 Range/Units 18:39 04:38 Total Bilirubin 0.3 0.5 (0.2-1.3) mg/dL AST 417 H 221 H (17-59) U/L ALT 337 H 279 H (6-50) U/L Alkaline Phosphatase 58 52 (38-126) U/L Albumin 3.4 L 3.0 L (3.5-5.1) g/dL Quality If No VTE Prophylaxis Answer both mechanical and pharmacologic: Reason no mechanical VTE proph: medical contraindication (Bleeding/anemia) Hospitalist MIPS Advance Care Plan I have confirmed that the patient's Advanced Care Plan is present, code status is documented, or surrogate decision maker is listed in patient medical record.: Yes Medication Reconciliation I have utilized all available resources to obtain, update and review the patients current medications (includes all prescriptions, OTC, herbals, cannabis, and nutritional supplements).: Yes
[2025-05-12] MEDS: SODIUM CHLORIDE 0.9% IV 1,000 ML 999 ML IV CONT (09:22)
--- NOTE | 2025-05-12 09:30 | P.CONGI_ITS ---
Assessment and Plan Assessment and plan (1) GI (gastrointestinal bleed): Qualifiers: GI bleed type/associated pathology: melena Qualified Code(s): K92.1 - Melena Code(s): K92.2 - Gastrointestinal hemorrhage, unspecified Status: Acute (2) Chronic anticoagulation: Code(s): Z79.01 - ocean transportation intermediary (current) use of anticoagulants Status: Acute (3) Transaminitis: Code(s): R74.01 - Elevation of levels of liver transaminase levels Status: Acute (4) Cholelithiasis: Qualifiers: Cholelithiasis location: gallbladder Cholecystitis presence: with cholecystitis Cholecystitis acuity: acute and chronic Biliary obstruction: w ithout biliary obstruction Qualified Code(s): K80.12 - Calculus of gallbladder with acute and chronic cholecystitis without obstruction Code(s): K80.20 - Calculus of gallbladder without cholecystitis without obstruction Status: Acute (5) Hyponatremia: Code(s): E87.1 - Hypo-osmolality and hyponatremia Status: Acute (6) AVM (arteriovenous malformation): Code(s): Q27.30 - Arteriovenous malformation, site unspecified Status: Acute Assessment and Plan: Colon Plan 1. Melena/acute on chronic anemia/Hx of AVM's: Patient with known chronic anemia and end-stage renal disease. A-Fib on Eliquis. Patient had an EGD and colonoscopy performed 04/10/2025, EGD showed [id number] gastritis and colonoscopy showed AVMs at the cecum which were cauterized. Upon presentation this admission patient was noted to have a hemoglobin of 5 and hematocrit 18. He received 3 units of PRBCs labs today show HGB 9, HCT 29, MCV 87, platelets 283 and INR 1.9. This admission patient was noted to have a large melenic stool prior to being transferred to the ICU. Patient states that he was not having any signs of GI bleeding prior to admission. No active bleeding at this time. * Given history of end-stage renal disease small bowel AVM's can not be excluded * repeat EGD vs tagged RBC scan vs more observational approach, but will leave this up to Dr. Estes's discretion 2. Elevated LFT's/gallstones: Patient with elevated liver transaminase since 04/23/2025 and was seen by cardiology for elevated troponin levels which was thought to be secondary to demand ischemia and not ACS. Transaminase elevated but trending down since the 3rd, AST 501-->221 and ALT 403-->279. Bilirubin and Alk Phos have remained normal. Etiology likely multi factorial given hypotension, shock, severe anemia, CHF, COPD and ESRD. Hepatitis panel recently done was negative. Iron panel in December was normal. Recent imaging showing hepatosplenomegaly, mild periportal edema, mild perihepatic fluid, pericholecystic fluid with fluid/inflammation in the min hepatitis and surround the extrahepatic bile ducts. Ultrasound 04/27/2025 with mural thickening, edema and hyperemia within the wall of the gallbladder with multiple adherent stones for which acute cholecystitis is suspected. No indication of biliary obstruction or dilation. Patient was seen by surgery during his last admission and given that the patient denied any abdominal pain and was tolerating p.o. intake well conservative treatment was recommended as well as following a low-fat diet. Given that he is a high risk surgical candidate for elective surgery there was no plan for cholecystectomy unless the patient started having acute onset RUQ pain. * Continue trending and if levels do not continue to improve, will consider additional workup 3. Hyponatremia: Today's labs showed sodium 128 and potassium 5.0. * Primary care provider to continue monitoring and correct Thank you very much for allowing me to share in the care of this very nice patient. This report may have been done utilizing a voice recognition system. Attempts have been made to correct errors. However, there may be uncorrected grammatical, spelling, and recognition errors present. GI Consult Note Consult date/time: 05/12/25 09:30 Reason for consult: Melena and recent AVM bleed HPI: Sam Morrissey is a 79 year old male with PMSH of COPD on 2 liters, DM2, HTN, AFib on Eliquis, PAD, CARITO, end-stage renal disease on hemodialysis (Sunday, and Sunday), pacemaker, history of hemorrhoidectomy and November 2023, appendectomy, diastolic heart failure with LV EF 60-65% and CABG. He presented to the emergency room from a nursing facility 05/11/2025 for lethargy and abnormal labs. GI has been consulted for melena. Patient has been admitted to [place] 11 times this year. Patient had an EGD and colonoscopy performed 04/10/2025, EGD showed [id number] gastritis and colonoscopy showed AVMs at the cecum which were cauterized. Patient with chronic. Upon admission on 05/11/2025 HGB 5, HCT 18. Patient received 3 units of PRBCs and labs today show HGB 9, HCT 29, INR 1.9. Patient was seen in his bed while having dialysis done. Patient denies hematemesis, hematochezia, or melena prior to admission. He denies abdominal pain, nausea, vomiting, bloating, odynophagia, dysphagia, reflux, regurgitation, appetite loss, or weight loss. The patient is having regular BM's but is incontinent and wears a diaper so unable to give details on stools. Denies diarrhea, constipation, hematochezia, melena, or rectal pain. ENDOSCOPY HISTORY: EGD: 04/10/[address] Cantor for GI bleed and anemia Findings: Mild-moderate gastritis seen in the body of the stomach and in the antrum. The gastritis had erythematous, edematous, erosive changes, no ulcer. There was no mucosal bleeding. Multiple biopsies were taken. EGD was otherwise normal Bx results: Stomach, biopsy: - Mild reactive changes - No H. pylori COLONOSCOPY: 04/10/[address] Cantor for GI bleed and anemia Findings: Moderate amount of blood seen throughout the colon Noted to arterial venous malformations present in the cecum. One of the AVMs were actively bleeding. An injection of saline was used to elevate base in order to prevent perforation. The lesions were cauterized with APC and no oozing noted at end. COLONOSCOPY: 10/26/[address] Moreno for anemia Findings: Multiple large-sized internal hemorrhoids were seen in the rectum He had a large network of internal hemorrhoids which likely was the source of recent brisk bleeding EGD: 10/25/[address] Moreno for anemia Findings: Small hiatal hernia found in the fundus Mild localized gastritis seen in the antrum Bx results: Duodenum, biopsies: - Benign duodenal mucosa - No evidence of duodenitis or celiac disease LABS AND STOOL STUDIES: Labs 05/12/2025: Sodium 128, potassium 5.0, BUN 74, creatinine 5.43, GFR 10, calcium 7.4, lactic acid 1.4, phosphorus 6.4 WBC 8, Hgb 9, Hct 29, MCV 87, platelets 283, INR 1.9 Total bilirubin 0.5, AST 221, ALT 279, Alkaline Phos 52, albumin 3.0 Labs 05/11/2025: WBC 8, Hgb 5, Hct 18, MCV 86, platelets 310, INR 2.1 Sodium 127, potassium 5.4, BUN 78, creatinine 5.57, GFR 10, calcium 7.9, magnesium 2.2 Total bilirubin 0.3, AST 417, ALT 337, Alkaline Phos 58, albumin 3.4 Labs 04/23/2025: Total bilirubin 0.4, AST 501, ALT 349, alkaline phosphatase 91 Labs 01/06/2025: Total iron 58, TIBC 287, iron saturation 20%, ferritin 296 IMAGING: CTA abd/pelvis 05/11/2025: IMPRESSION: Mild atelectasis/edema in the lung bases. Small bilateral pleural effusions. Hepatomegaly with mild periportal edema and mild perihepatic fluid. Pericholecystic fluid with fluid/inflammation in the min hepatis and surrounding the extrahepatic bile ducts. Consider hepatitis, cholecystitis, and cholangitis in the differential. Bladder wall thickening may be secondary to cystitis or chronic outlet obstruction from prostatomegaly. Extensive atherosclerotic disease. Abdominal Ultrasound 04/27/2025: IMPRESSION: Limited evaluation of the pancreas secondary to overlying bowel gas. Mural thickening, edema and hyperemia within the wall of the gallbladder with multiple adherent stones for which acute cholecystitis is suspected and for which clinical correlation is needed. CT chest/abd/pelvis w/contrast 04/23/2025: Impression: Moderate bilateral pleural effusions with mild pulmonary edema and bibasilar atelectatic change. Small gallstone. Splenomegaly, uncertain etiology. Mild gallbladder wall thickening is nonspecific, probably most likely related to the presence of ascites. If there is concern for acute cholecystitis, consider HIDA scan. Marked prostatomegaly. Modified barium swallow 03/17/2025: IMPRESSION: Patient tolerated regular consistency oral feedings in the upright position. Please correlate with speech pathologist findings and specific feeding recommendations. Review of Systems 2 Constitutional: Constitutional: Reports as per HPI, Reports fatigue and Reports lethargy ENT: Reports as per HPI Cardiovascular: Cardiovascular: Reports as per HPI, Denies chest pain, Denies leg edema and Reports dyspnea Respiratory: Respiratory: Denies cough, Denies hemoptysis and Reports dyspnea Gastrointestinal: Gastrointestinal: Reports as per HPI and Denies hematemesis Musculoskeletal: Musculoskeletal: Reports as per HPI Integumentary/Breasts: Skin/Breast: Reports as per HPI Psychiatric: Psychiatric: Reports as per HPI Endocrine: Endocrine: Reports no additional endocrine complaints Hematologic/Lymphatic: Hematologic/Lymphatic: Reports no additional hematologic/lymphatic complaints [facility] Past Medical History Medical History Shock circulatory Pulmonary hypertension AVM (arteriovenous malformation) of colon, acquired with hemorrhage Chronic anticoagulation Insulin dependent type 2 diabetes mellitus (~2009) Chronic obstructive pulmonary disease Diabetic polyneuropathy Coronary artery disease Anemia Atrial fibrillation Chronic neck and back pain Insomnia History of nephrolithiasis Sinus pause (~09/2024) Obstructive sleep apnea Intolerant to CPAP Benign prostatic hyperplasia Peripheral vascular disease (~03/2023) Internal hemorrhoid, bleeding End-stage renal disease on hemodialysis DVT dialysis Sunday History of colon polyps Environmental allergies Vitamin D deficiency Dyslipidemia Essential (primary) hypertension Surgical History Surgical History History of cardiac pacemaker (~10/2024) Medtr[employer] pacemaker placed due to symptomatic sinus pauses causing syncope performed at [facility] Status post cataract extraction of both eyes with insertion of intraocular lens History of colonoscopy with polypectomy History of hemorrhoidectomy (~01/12/24) Anorectal evaluation under anesthesia and excisional hemorrhoidectomy x3 12/14/23 SAW S/P peripheral artery angioplasty (~03/2023) status post balloon angioplasty of bilateral common and external iliac arteries status post left iliofemoral endarterectomy Arteriovenous fistula of left upper extremity (~2017) History of appendectomy (~1962) History of coronary artery bypass graft (~2013) Family History Family History Mother Diabetes mellitus Acute myocardial infarction Family history of congestive heart failure Father Hypertension Social History Social History Social History: The patient is . He and his brother live together prior to his hospitalization November or December 2024 and subsequent placement in to [facility]. He is retired after 26 years of serving in the [employer]. He has 4 children. He used to smoke 1.5-2 packs of cigarettes per day but quit smoking in approximately 2009. He will on a rare occasion drink an alcoholic beverage maybe 2 to 3 times a year. He denies illicit substance use. Surrogate medical decision maker: Wilian Yuni, sibling. Code status: Full code. Caffeine- daily Smoking packs per day: 1.5 Smoking cigarettes per day: 30.0 Years smoked: 44 Smoking pack-years: 66.00 Smoking status: Former smoker Second hand tobacco smoke exposure: No Alcohol intake: unknown Alcohol use details: Maybe 2-3 per year Substance use: never Substance use type: does not use Do You Feel Safe in your Home?: Yes Lack of Transportation: No Lack of Food: Never True Current Housing: I Have Housing Concerned About Future Housing: No Difficulty Paying Gas/Electric Bills: No Difficulty Paying for Meds: No Currently Unemployed: No Education: Don't Know Difficulty w/ Childcare or Family Care: No Living arrangements: with family Occupation/Education: retired Additional occupation/education comments: Retired from the [employer]. 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 Spiritual care concerns: No Agree to blood products: Yes Meds Home Medications and Allergies Home Medications ?Medication ?Instructions ?Recorded ?Confirmed ?Type aspirin 81 mg tablet,delayed 81 mg PO DAILY 10/31/21 05/12/25 History release carvedilol 25 mg tablet 25 mg PO BID 10/31/21 05/12/25 History insulin lispro 100 unit/mL 4 unit subcut .TIDAC 10/31/21 05/12/25 History subcutaneous pen loratadine 10 mg tablet (Claritin) 10 mg PO DAILY 10/31/21 05/12/25 History insulin glargine 100 unit/mL (3 6 unit subcut HS 11/07/23 05/12/25 History mL) subcutaneous pen (Lantus Solostar U-100 Insulin) cinacalcet 90 mg PO DAILY 12/12/23 05/12/25 History atorvastatin 20 mg tablet 20 mg PO HS 12/21/24 05/12/25 History finasteride 5 mg tablet (Proscar) 5 mg PO QAM #30 tabs 12/23/24 05/12/25 Rx furosemide 80 mg tablet 80 mg PO BID #60 tabs 12/23/24 05/12/25 Rx tamsulosin 0.4 mg capsule 0.4 mg PO QHS #30 caps 12/23/24 05/12/25 Rx acetaminophen 325 mg tablet 650 mg (2 x 325 mg) PO Q4H PRN 01/10/25 05/12/25 Rx Mild Pain (1-3) Or Fever #60 tabs pentoxifylline 400 mg 400 mg PO QPM 01/29/25 05/12/25 History tablet,extended release amlodipine 10 mg tablet 10 mg PO DAILY 02/16/25 05/12/25 History bisacodyl 10 mg rectal suppository 10 mg RECTAL DAILY PRN constipation 02/16/25 05/12/25 History (Laxative (bisacodyl)) gabapentin 100 mg capsule 100 mg PO TID 02/16/25 05/12/25 History liraglutide 0.6 mg/0.1 mL (18 mg/3 1.2 mg subcut HS 02/16/25 05/12/25 History mL) subcutaneous pen injector magnesium citrate (Citroma oral 296 ml PO .AM PRN constipation 02/16/25 05/12/25 History solution) magnesium hydroxide 400 mg/5 mL 30 ml PO HS PRN constipation 02/16/25 05/12/25 History oral suspension (Milk of Magnesia) sodium phosphates 19 gram-7 118 ml RECTAL DAILY PRN 02/16/25 05/12/25 History gram/118 mL enema (Fleet Enema) constipation vitamin B complex 1 cap PO DAILY 02/16/25 05/12/25 History ipratropium 20 mcg-albuterol 100 1 puff inhalation Q6H PRN 03/10/25 05/12/25 History mcg/actuation mist for inhalation shortness of breath or wheezing (Combivent Respimat) loperamide 2 mg capsule 2 mg PO Q4H PRN loose stool 03/10/25 05/12/25 History melatonin 3 mg tablet 3 mg PO HS 03/10/25 05/12/25 History tramadol 50 mg tablet 50 mg PO BID 03/10/25 05/12/25 History umeclidinium 62.5 mcg/actuation 1 inh inhalation DAILY 03/10/25 05/12/25 History blister powder for inhalation (Incruse Ellipta) levalbuterol HCl 0.63 mg/3 mL 0.63 mg (3 mL) inhalation Q6H PRN 03/19/25 05/12/25 Rx solution for nebulization shortness of breath or wheezing #90 mL levalbuterol HCl 1.25 mg/3 mL 0.63 mg (1.512 mL) inhalation 03/19/25 05/12/25 Rx solution for nebulization Q6HRT #30 vials sevelamer carbonate 0.8 gram oral 0.8 g PO TIDWM #60 grams 03/19/25 05/12/25 Rx powder packet apixaban 2.5 mg tablet (Eliquis) 2.5 mg PO Q12HR #60 tabs 03/27/25 05/12/25 Rx Allergies Allergy/AdvReac Type Severity Reaction Status Date / Time baclofen Allergy Severe encephalopa Verified 05/12/25 00:25 thy Vital Signs Vital Signs - 24 hr 05/11/25 17:49 05/11/25 17:50 05/11/25 17:51 Temperature 97.8 F Pulse Rate 72 75 69 Respiratory Rate 22 H 21 H 22 H Blood Pressure 98/55 L 98/55 L Pulse Oximetry 99 100 99 Oxygen Delivery Room Air Oxygen Flow Rate 05/11/25 17:55 05/11/25 18:00 05/11/25 18:05 Temperature Pulse Rate 74 69 Respiratory Rate 22 H 21 H 10 L Blood Pressure 88/58 L Pulse Oximetry 100 100 100 Oxygen Delivery Oxygen Flow Rate 05/11/25 18:18 05/11/25 18:39 05/11/25 19:07 Temperature Pulse Rate 72 74 71 Respiratory Rate 14 24 H 23 H Blood Pressure 89/51 L Pulse Oximetry 100 96 99 Oxygen Delivery Oxygen Flow Rate 05/11/25 19:34 05/11/25 19:47 05/11/25 20:00 Temperature Pulse Rate 64 66 66 Respiratory Rate 22 H 20 21 H Blood Pressure 93/46 L 88/51 L Pulse Oximetry 99 100 Oxygen Delivery Oxygen Flow Rate 05/11/25 20:01 05/11/25 20:28 05/11/25 20:30 Temperature Pulse Rate 65 69 68 Respiratory Rate 21 H 21 H 22 H Blood Pressure Pulse Oximetry 100 99 Oxygen Delivery Oxygen Flow Rate 05/11/25 20:42 05/11/25 20:45 05/11/25 20:46 Temperature Pulse Rate 62 65 64 Respiratory Rate 15 11 L Blood Pressure 79/43 L 79/47 L Pulse Oximetry 99 Oxygen Delivery Oxygen Flow Rate 05/11/25 21:06 05/11/25 21:23 05/11/25 21:37 Temperature 97.7 F 97.5 F L Pulse Rate 70 66 70 Respiratory Rate 19 19 21 H Blood Pressure 78/45 L 86/57 L Pulse Oximetry 100 100 100 Oxygen Delivery Oxygen Flow Rate 05/11/25 21:40 05/11/25 21:44 05/11/25 21:45 Temperature Pulse Rate 67 64 62 Respiratory Rate 19 18 Blood Pressure 90/59 L 90/59 L Pulse Oximetry 100 100 Oxygen Delivery Oxygen Flow Rate 05/11/25 21:50 05/11/25 21:52 05/11/25 21:57 Temperature 97.6 F 97.6 F Pulse Rate 70 66 70 Respiratory Rate 17 17 19 Blood Pressure 93/62 L 93/62 L 93/62 L Pulse Oximetry 100 100 100 Oxygen Delivery Oxygen Flow Rate 05/11/25 22:00 05/11/25 22:01 05/11/25 22:10 Temperature Pulse Rate 69 69 67 Respiratory Rate 18 17 18 Blood Pressure 107/59 L 104/66 Pulse Oximetry 100 Oxygen Delivery Oxygen Flow Rate 05/11/25 22:12 05/11/25 22:15 05/11/25 22:20 Temperature 97.5 F L Pulse Rate 69 67 66 Respiratory Rate 16 18 19 Blood Pressure 104/66 114/65 Pulse Oximetry 99 99 99 Oxygen Delivery Oxygen Flow Rate 05/11/25 22:30 05/11/25 22:31 05/11/25 22:40 Temperature Pulse Rate 66 65 73 Respiratory Rate 16 18 19 Blood Pressure 108/62 120/84 Pulse Oximetry 100 100 99 Oxygen Delivery Oxygen Flow Rate 05/11/25 22:45 05/11/25 22:50 05/11/25 23:37 Temperature Pulse Rate 69 76 76 Respiratory Rate 19 18 18 Blood Pressure 111/73 111/73 Pulse Oximetry 99 Oxygen Delivery Oxygen Flow Rate 05/11/25 23:45 05/11/25 23:45 05/12/25 00:00 Temperature 97.8 F Pulse Rate 70 70 67 Respiratory Rate 19 Blood Pressure 133/79 133/79 135/68 Pulse Oximetry 99 Oxygen Delivery Oxygen Flow Rate 05/12/25 00:00 05/12/25 00:00 05/12/25 00:00 Temperature 98.5 F Pulse Rate 67 67 Respiratory Rate 19 Blood Pressure 135/68 Pulse Oximetry 99 99 Oxygen Delivery Nasal Cannula Oxygen Flow Rate 2 05/12/25 00:15 05/12/25 00:20 05/12/25 01:00 Temperature Pulse Rate 67 69 Respiratory Rate 78 H Blood Pressure 116/69 129/72 Pulse Oximetry 99 Oxygen Delivery Nasal Cannula Oxygen Flow Rate 2 05/12/25 01:15 05/12/25 01:27 05/12/25 01:42 Temperature 98.1 F 97.9 F 98.0 F Pulse Rate 70 70 66 Respiratory Rate 18 16 16 Blood Pressure 108/58 L 108/58 L 118/58 L Pulse Oximetry 100 100 100 Oxygen Delivery Oxygen Flow Rate 05/12/25 02:00 05/12/25 02:00 05/12/25 02:00 Temperature Pulse Rate 60 68 63 Respiratory Rate 16 Blood Pressure 107/63 107/63 Pulse Oximetry 100 Oxygen Delivery Oxygen Flow Rate 05/12/25 02:42 05/12/25 03:42 05/12/25 04:00 Temperature 97.3 F L 98.0 F 97.3 F L Pulse Rate 64 65 64 Respiratory Rate 16 16 16 Blood Pressure 112/61 120/72 112/63 Pulse Oximetry 100 99 98 Oxygen Delivery Oxygen Flow Rate 05/12/25 04:00 05/12/25 04:00 05/12/25 04:00 Temperature 97.0 F L Pulse Rate 66 66 Respiratory Rate 16 Blood Pressure 112/63 Pulse Oximetry 100 100 Oxygen Delivery Nasal Cannula Oxygen Flow Rate 2 05/12/25 04:00 05/12/25 06:00 05/12/25 06:00 Temperature Pulse Rate 66 61 66 Respiratory Rate 16 Blood Pressure 112/63 104/58 L Pulse Oximetry 99 Oxygen Delivery Oxygen Flow Rate 05/12/25 06:00 05/12/25 08:00 05/12/25 08:40 Temperature 97.7 F Pulse Rate 66 68 Respiratory Rate 18 Blood Pressure 104/58 L 107/55 L Pulse Oximetry 99 99 Oxygen Delivery Nasal Cannula Oxygen Flow Rate 2 05/12/25 08:41 05/12/25 08:50 Temperature Pulse Rate 68 69 Respiratory Rate 17 19 Blood Pressure Pulse Oximetry Oxygen Delivery Oxygen Flow Rate Exam 2 Const: General: cooperative, comfortable, no acute distress and well developed Orientation/consciousness: oriented to person, oriented to place, oriented to time and patient oriented x3 HENMT: Head: normal to inspection, normocephalic and atraumatic Mouth: Yes Normal oral and palatal mucosa present and Yes moist mucous membranes Eyes: General: appearance normal, both eyes and all related structures C onjunctivae: conjunctivae normal Sclera: sclerae normal Pupils: Equal, round and reactive pupils present Neck: Neck: normal visual inspection Chest: Chest palpation & inspection: normal inspection of the chest Resp: Effort & Inspection: normal respiratory effort and able to speak in complete sentences Auscultation: diminished lung sounds Cardio: Jugular venous distension: no JVD Rate: regular rate Rhythm: a bnormal rhythm Heart sounds: S1 normal heart sound present and S2 normal heart sound present GI: Inspection: distended GI Palp: Yes Soft to palpation, No Tenderness to palpation present (GI), No Guarding due to palpation present (GI) and Yes No hepatosplenomegaly present Auscultation: normal bowel sounds Rectal Exam: deferred Skin: General skin exam: normal color Wounds: wounds noted Other: right griffin hematoma Neuro: General: oriented to person, oriented to place, oriented to time and patient oriented x3 Cranial nerves: Yes Equal, round and reactive pupils present Speech: normal speech Extrem: General: normal to inspection and no clubbing, cyanosis or edema Psych: Appearance: grossly normal and well kempt Affect: normal affect Results Labs 05/12/25 04:38 05/12/25 04:38 Labs: Short CBC 05/11/25 05/12/25 Range/Units 18:39 04:38 WBC 8.7 8.2 (4.5-10.0) K/mm3 Hgb 5.2 L* D 8.7 L D (14.0-18.0) g/dL Hct 17.6 L* 28.5 L (42.0-52.0) % Plt Count 310 283 (150-375) k/mm3 [facility] 05/11/25 05/12/25 18:39 04:38 Sodium 127 L 128 L Potassium 5.4 H 5.0 Chloride 87 L 91 L Carbon Dioxide 29 27 BUN 78 H D 74 H Creatinine 5.57 H 5.43 H Glucose 120 H 123 H Calcium 7.9 L 7.4 L Liver Function 05/11/25 05/12/25 Range/Units 18:39 04:38 Total Bilirubin 0.3 0.5 (0.2-1.3) mg/dL AST 417 H 221 H (17-59) U/L ALT 337 H 279 H (6-50) U/L Alkaline Phosphatase 58 52 (38-126) U/L Albumin 3.4 L 3.0 L (3.5-5.1) g/dL
--- NOTE | 2025-05-12 09:40 | PM.CNGS ---
Assessment and Plan Assessment and plan (1) Cholelithiasis: Qualifiers: Cholelithiasis location: gallbladder Cholecystitis presence: with cholecystitis Cholecystitis acuity: acute and chronic Biliary obstruction: without biliary obstruction Qualified Code(s): K80.12 - Calculus of gallbladder with acute and chronic cholecystitis without obstruction Code(s): K80.20 - Calculus of gallbladder without cholecystitis without obstruction Status: Acute Assessment and Plan: Patient presented with lethargy, anemia, and melanotic stools. Patient denies having any recent abdominal pain or issues with tolerating a diet. He is clinically improving and has been titrated off vasopressors following fluid resuscitation and blood transfusions. He is still not having any abdominal pain and has no RUQ tenderness on exam. CT abdomen/pelvis on admission again shows abnormalities of the gallbladder with a small gallstone in the gallbladder and mild periportal edema and perihepatic/pericholecystic fluid with inflammation. The patient is a very poor surgical candidate due to his multiple co-morbidities, and he is responding well to current medical treatment. We would not recommend any surgical management at this time. If he were to develop RUQ pain or tenderness and was not responding to medical management, then we could consider cholecystostomy tube placement if needed. For now, would continue low fat diet restrictions and monitor while treating his GI bleed/anemia. (2) Transaminitis: Code(s): R74.01 - Elevation of levels of liver transaminase levels Status: Acute Assessment and Plan: Elevation of AST and ALT from recent admission. Could be related to shock/hypotension, anemia. If this was related to cholecystitis or cholangitis, would expect RUQ pain or tenderness. See plan above regarding his gallbladder. (3) Shock circulatory: Code(s): R57.9 - Shock, unspecified Status: Acute Assessment and Plan: Presented with hypotension refractory to IV fluids and melanotic stools. He received 3 units PRBCs and was briefly on Levophed infusion. Clinically improving and Hgb up from 5.2 to 8.7 this morning. No longer on vasopressors. GI has been consulted. Continue critical care management. (4) GI (gastrointestinal bleed): Qualifiers: GI bleed type/associated pathology: melena Qualified Code(s): K92.1 - Melena Code(s): K92.2 - Gastrointestinal hemorrhage, unspecified Status: Acute Assessment and Plan: Presented with melanotic stools and profound anemia. 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 Hx of Afib on Eliquis, which has been put on hold. GI consulted. (5) Type 2 diabetes mellitus, with long-term current use of insulin: Qualifiers: Diabetes mellitus complication status: with neurologic complications Diabetes mellitus complication detail: with polyneuropathy Qualified Code(s): E11.42 - Type 2 diabetes mellitus with diabetic polyneuropathy; Z79.4 - exterminator (current) use of insulin Code(s): E11.9 - Type 2 diabetes mellitus without complications; Z79.4 - [facility] (current) use of insulin Status: Acute (6) Acute on chronic blood loss anemia: Code(s): D62 - Acute posthemorrhagic anemia Status: Acute Assessment and Plan: Hgb up from 5.2 to 8.7 after transfusion of 3 units of PRBCs. GI consulted (7) Pressure ulcer of left heel, unstageable: Code(s): L89.620 - Pressure ulcer of left heel, unstageable Status: Acute Assessment and Plan: Unstageable left heel ulcer that appears stable with a dry firm eschar. Does not appear infected. Continue local wound care with betadine dressing changes and pressure offloading. No indication for surgical intervention at this time. (8) Hematoma of right lower leg: Code(s): S80.11XA - Contusion of right lower leg, initial encounter Status: Acute Assessment and Plan: Stable right anterior lower leg hematoma that has decreased in size. This does not appear infected and the dry black eschar remains stable without any drainage. Would recommend to continue local wound care with betadine swabs and monitor. No indication for surgical management at this time, but may require I&D in the future if this begins draining or becomes infected. (9) COPD (chronic obstructive pulmonary disease): Qualifiers: COPD type: unspecified COPD Qualified Code(s): J44.9 - Chronic obstructive pulmonary disease, unspecified Code(s): J44.9 - Chronic obstructive pulmonary disease, unspecified Status: Chronic (10) Atrial fibrillation with controlled ventricular rate: Code(s): I48.91 - Unspecified atrial fibrillation Status: Acute Plan I have discussed the patient's case and plan of care with Dr. Muhammad. History of Present Illness Consult details Consult date: 05/12/25 Reason for consult: other (Cholangitis/cholecystitis with shock, left griffin hematoma) Requesting physician: Alexandra Leo DO Narrative: This is a 79-year-old man with a history of COPD on 2 L of O2 at baseline, type 2 diabetes, paroxysmal AFib on Eliquis, PVD, ESRD on hemodialysis, and multiple other medical problems who resides in a senior living. He is known to our service from recent hospitalization for CHF exacerbation and abnormal finding of the gallbladder on imaging with transaminitis. He had a right upper quadrant abdominal ultrasound that showed mural thickening, edema, and hyperemia within the gallbladder wall with cholelithiasis that was suspicious for acute cholecystitis. He was not having any abdominal pain, no abdominal tenderness, and was able to tolerate a diet. We had recommended a low-fat diet and to monitor as he was asymptomatic and is a poor surgical candidate. He was discharged to the senior living 2 weeks ago and was brought back to the ED last night for evaluation of lethargy and abnormal labs. Labs in the ED showed profound anemia with a hemoglobin 5.2. WBC count normal. AST and ALT were up from his previous admission, AST 417, ALT 337. Total bilirubin and alk-phos normal. He has a history of 2 AVMs in the cecum that were cauterized during a colonoscopy 1 month ago. He was hypotensive in the ED refractory to IV fluids and blood transfusion. He had multiple melanotic stools. CTA abdomen/pelvis showed hepatomegaly with mild periportal edema and mild perihepatic fluid with fluid/inflammation in the min hepaticus and surrounding the extrahepatic bile ducts, consider hepatitis/cholecystitis/cholangitis, mild atelectasis/edema in the lung bases, bladder wall thickening, and extensive atherosclerotic disease. He had a right groin central line placed and was started on Levophed infusion. He was admitted to the ICU. Our service was consulted for possible cholangitis/cholecystitis and right griffin hematoma. To note, he also has a right griffin hematoma from hitting his leg on the wheelchair at the senior living over a month ago. I had also evaluated the hematoma when he was seen in the hospital a few weeks ago. Patient denies any drainage from this area or changes with the hematoma. He is now seen in the ICU and about to receive dialysis. He received 3 units of PRBCs and his hemoglobin is up to 8.7. Per nursing, after receiving blood the patient is much more alert and talkative. He is oriented and able to answer questions, but does not recall coming into the hospital. He denies any recent abdominal pain. He is not currently having any abdominal pain or nausea. He reports not eating much, but this is due to poor taste of the food at the senior living. He he appears comfortable. He has not had any more melanotic stools. Per nursing, his vasopressors were titrated off around midnight last night. Review of Systems Review of Systems: ROS unobtainable: Yes unobtainable due to mental status [facility] Past Medical History Medical History Shock circulatory Pulmonary hypertension AVM (arteriovenous malformation) of colon, acquired with hemorrhage Chronic anticoagulation Insulin dependent type 2 diabetes mellitus (~2009) Chronic obstructive pulmonary disease Diabetic polyneuropathy Coronary artery disease Anemia Atrial fibrillation Chronic neck and back pain Insomnia History of nephrolithiasis Sinus pause (~09/2024) Obstructive sleep apnea Intolerant to CPAP Benign prostatic hyperplasia Peripheral vascular disease (~03/2023) Internal hemorrhoid, bleeding End-stage renal disease on hemodialysis DVT dialysis Sunday History of colon polyps Environmental allergies Vitamin D deficiency Dyslipidemia Essential (primary) hypertension Surgical History Surgical History History of cardiac pacemaker (~10/2024) Medtronic pacemaker placed due to symptomatic sinus pauses causing syncope performed at [facility] Status post cataract extraction of both eyes with insertion of intraocular lens History of colonoscopy with polypectomy History of hemorrhoidectomy (~01/12/24) Anorectal evaluation under anesthesia and excisional hemorrhoidectomy x3 12/14/23 SAW S/P peripheral artery angioplasty (~03/2023) status post balloon angioplasty of bilateral common and external iliac arteries status post left iliofemoral endarterectomy Arteriovenous fistula of left upper extremity (~2017) History of appendectomy (~1962) History of coronary artery bypass graft (~2013) Family History Family History Mother Diabetes mellitus Acute myocardial infarction Family history of congestive heart failure Father Hypertension Social History Social History Social History: The patient is . He and his brother live together prior to his hospitalization November or December 2024 and subsequent placement in to [facility]. He is retired after 26 years of serving in the [employer]. He has 4 children. He used to smoke 1.5-2 packs of cigarettes per day but quit smoking in approximately 2009. He will on a rare occasion drink an alcoholic beverage maybe 2 to 3 times a year. He denies illicit substance use. Surrogate medical decision maker: Wilian Morrissey, sibling. Code status: Full code. Caffeine- daily Smoking packs per day: 1.5 Smoking cigarettes per day: 30.0 Years smoked: 44 Smoking pack-years: 66.00 Smoking status: Former smoker Second hand tobacco smoke exposure: No Alcohol intake: unknown Alcohol use details: Maybe 2-3 per year Substance use: never Substance use type: does not use Do You Feel Safe in your Home?: Yes Lack of Transportation: No Lack of Food: Never True Current Housing: I Have Housing Concerned About Future Housing: No Difficulty Paying Gas/Electric Bills: No Difficulty Paying for Meds: No Currently Unemployed: No Education: Don't Know Difficulty w/ Childcare or Family Care: No Living arrangements: with family Occupation/Education: retired Additional occupation/education comments: Retired from the [employer]. 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 Spiritual care concerns: No Agree to blood products: Yes Meds Home Medications and Allergies Home Medications ?Medication ?Instructions ?Recorded ?Confirmed ?Type aspirin 81 mg tablet,delayed 81 mg PO DAILY 10/31/21 05/12/25 History release carvedilol 25 mg tablet 25 mg PO BID 10/31/21 05/12/25 History insulin lispro 100 unit/mL 4 unit subcut .TIDAC 10/31/21 05/12/25 History subcutaneous pen loratadine 10 mg tablet (Claritin) 10 mg PO DAILY 10/31/21 05/12/25 History insulin glargine 100 unit/mL (3 6 unit subcut HS 11/07/23 05/12/25 History mL) subcutaneous pen (Lantus Solostar U-100 Insulin) cinacalcet 90 mg PO DAILY 12/12/23 05/12/25 History atorvastatin 20 mg tablet 20 mg PO HS 12/21/24 05/12/25 History finasteride 5 mg tablet (Proscar) 5 mg PO QAM #30 tabs 12/23/24 05/12/25 Rx furosemide 80 mg tablet 80 mg PO BID #60 tabs 12/23/24 05/12/25 Rx tamsulosin 0.4 mg capsule 0.4 mg PO QHS #30 caps 12/23/24 05/12/25 Rx acetaminophen 325 mg tablet 650 mg (2 x 325 mg) PO Q4H PRN 01/10/25 05/12/25 Rx Mild Pain (1-3) Or Fever #60 tabs pentoxifylline 400 mg 400 mg PO QPM 01/29/25 05/12/25 History tablet,extended release amlodipine 10 mg tablet 10 mg PO DAILY 02/16/25 05/12/25 History bisacodyl 10 mg rectal suppository 10 mg RECTAL DAILY PRN constipation 02/16/25 05/12/25 History (Laxative (bisacodyl)) gabapentin 100 mg capsule 100 mg PO TID 02/16/25 05/12/25 History liraglutide 0.6 mg/0.1 mL (18 mg/3 1.2 mg subcut HS 02/16/25 05/12/25 History mL) subcutaneous pen injector magnesium citrate (Citroma oral 296 ml PO .AM PRN constipation 02/16/25 05/12/25 History solution) magnesium hydroxide 400 mg/5 mL 30 ml PO HS PRN constipation 02/16/25 05/12/25 History oral suspension (Milk of Magnesia) sodium phosphates 19 gram-7 118 ml RECTAL DAILY PRN 02/16/25 05/12/25 History gram/118 mL enema (Fleet Enema) constipation vitamin B complex 1 cap PO DAILY 02/16/25 05/12/25 History ipratropium 20 mcg-albuterol 100 1 puff inhalation Q6H PRN 03/10/25 05/12/25 History mcg/actuation mist for inhalation shortness of breath or wheezing (Combivent Respimat) loperamide 2 mg capsule 2 mg PO Q4H PRN loose stool 03/10/25 05/12/25 History melatonin 3 mg tablet 3 mg PO HS 03/10/25 05/12/25 History tramadol 50 mg tablet 50 mg PO BID 03/10/25 05/12/25 History umeclidinium 62.5 mcg/actuation 1 inh inhalation DAILY 03/10/25 05/12/25 History blister powder for inhalation (Incruse Ellipta) levalbuterol HCl 0.63 mg/3 mL 0.63 mg (3 mL) inhalation Q6H PRN 03/19/25 05/12/25 Rx solution for nebulization shortness of breath or wheezing #90 mL levalbuterol HCl 1.25 mg/3 mL 0.63 mg (1.512 mL) inhalation 03/19/25 05/12/25 Rx solution for nebulization Q6HRT #30 vials sevelamer carbonate 0.8 gram oral 0.8 g PO TIDWM #60 grams 03/19/25 05/12/25 Rx powder packet apixaban 2.5 mg tablet (Eliquis) 2.5 mg PO Q12HR #60 tabs 03/27/25 05/12/25 Rx Allergies Allergy/AdvReac Type Severity Reaction Status Date / Time baclofen Allergy Severe encephalopa Verified 05/12/25 00:25 thy Vital Signs Vital Signs - 24 hr 05/11/25 17:49 05/11/25 17:50 05/11/25 17:51 Temperature 97.8 F Pulse Rate 72 75 69 Respiratory Rate 22 H 21 H 22 H Blood Pressure 98/55 L 98/55 L Pulse Oximetry 99 100 99 Oxygen Delivery Room Air Oxygen Flow Rate 05/11/25 17:55 05/11/25 18:00 05/11/25 18:05 Temperature Pulse Rate 74 69 Respiratory Rate 22 H 21 H 10 L Blood Pressure 88/58 L Pulse Oximetry 100 100 100 Oxygen Delivery Oxygen Flow Rate 05/11/25 18:18 05/11/25 18:39 05/11/25 19:07 Temperature Pulse Rate 72 74 71 Respiratory Rate 14 24 H 23 H Blood Pressure 89/51 L Pulse Oximetry 100 96 99 Oxygen Delivery Oxygen Flow Rate 05/11/25 19:34 05/11/25 19:47 05/11/25 20:00 Temperature Pulse Rate 64 66 66 Respiratory Rate 22 H 20 21 H Blood Pressure 93/46 L 88/51 L Pulse Oximetry 99 100 Oxygen Delivery Oxygen Flow Rate 05/11/25 20:01 05/11/25 20:28 05/11/25 20:30 Temperature Pulse Rate 65 69 68 Respiratory Rate 21 H 21 H 22 H Blood Pressure Pulse Oximetry 100 99 Oxygen Delivery Oxygen Flow Rate 05/11/25 20:42 05/11/25 20:45 05/11/25 20:46 Temperature Pulse Rate 62 65 64 Respiratory Rate 15 11 L Blood Pressure 79/43 L 79/47 L Pulse Oximetry 99 Oxygen Delivery Oxygen Flow Rate 05/11/25 21:06 05/11/25 21:23 05/11/25 21:37 Temperature 97.7 F 97.5 F L Pulse Rate 70 66 70 Respiratory Rate 19 19 21 H Blood Pressure 78/45 L 86/57 L Pulse Oximetry 100 100 100 Oxygen Delivery Oxygen Flow Rate 05/11/25 21:40 05/11/25 21:44 05/11/25 21:45 Temperature Pulse Rate 67 64 62 Respiratory Rate 19 18 Blood Pressure 90/59 L 90/59 L Pulse Oximetry 100 100 Oxygen Delivery Oxygen Flow Rate 05/11/25 21:50 05/11/25 21:52 05/11/25 21:57 Temperature 97.6 F 97.6 F Pulse Rate 70 66 70 Respiratory Rate 17 17 19 Blood Pressure 93/62 L 93/62 L 93/62 L Pulse Oximetry 100 100 100 Oxygen Delivery Oxygen Flow Rate 05/11/25 22:00 05/11/25 22:01 05/11/25 22:10 Temperature Pulse Rate 69 69 67 Respiratory Rate 18 17 18 Blood Pressure 107/59 L 104/66 Pulse Oximetry 100 Oxygen Delivery Oxygen Flow Rate 05/11/25 22:12 05/11/25 22:15 05/11/25 22:20 Temperature 97.5 F L Pulse Rate 69 67 66 Respiratory Rate 16 18 19 Blood Pressure 104/66 114/65 Pulse Oximetry 99 99 99 Oxygen Delivery Oxygen Flow Rate 05/11/25 22:30 05/11/25 22:31 05/11/25 22:40 Temperature Pulse Rate 66 65 73 Respiratory Rate 16 18 19 Blood Pressure 108/62 120/84 Pulse Oximetry 100 100 99 Oxygen Delivery Oxygen Flow Rate 05/11/25 22:45 05/11/25 22:50 05/11/25 23:37 Temperature Pulse Rate 69 76 76 Respiratory Rate 19 18 18 Blood Pressure 111/73 111/73 Pulse Oximetry 99 Oxygen Delivery Oxygen Flow Rate 05/11/25 23:45 05/11/25 23:45 05/12/25 00:00 Temperature 97.8 F Pulse Rate 70 70 67 Respiratory Rate 19 Blood Pressure 133/79 133/79 135/68 Pulse Oximetry 99 Oxygen Delivery Oxygen Flow Rate 05/12/25 00:00 05/12/25 00:00 05/12/25 00:00 Temperature 98.5 F Pulse Rate 67 67 Respiratory Rate 19 Blood Pressure 135/68 Pulse Oximetry 99 99 Oxygen Delivery Nasal Cannula Oxygen Flow Rate 2 05/12/25 00:15 05/12/25 00:20 05/12/25 01:00 Temperature Pulse Rate 67 69 Respiratory Rate 78 H Blood Pressure 116/69 129/72 Pulse Oximetry 99 Oxygen Delivery Nasal Cannula Oxygen Flow Rate 2 05/12/25 01:15 05/12/25 01:27 05/12/25 01:42 Temperature 98.1 F 97.9 F 98.0 F Pulse Rate 70 70 66 Respiratory Rate 18 16 16 Blood Pressure 108/58 L 108/58 L 118/58 L Pulse Oximetry 100 100 100 Oxygen Delivery Oxygen Flow Rate 05/12/25 02:00 05/12/25 02:00 05/12/25 02:00 Temperature Pulse Rate 60 68 63 Respiratory Rate 16 Blood Pressure 107/63 107/63 Pulse Oximetry 100 Oxygen Delivery Oxygen Flow Rate 05/12/25 02:42 05/12/25 03:42 05/12/25 04:00 Temperature 97.3 F L 98.0 F 97.3 F L Pulse Rate 64 65 64 Respiratory Rate 16 16 16 Blood Pressure 112/61 120/72 112/63 Pulse Oximetry 100 99 98 Oxygen Delivery Oxygen Flow Rate 05/12/25 04:00 05/12/25 04:00 05/12/25 04:00 Temperature 97.0 F L Pulse Rate 66 66 Respiratory Rate 16 Blood Pressure 112/63 Pulse Oximetry 100 100 Oxygen Delivery Nasal Cannula Oxygen Flow Rate 2 05/12/25 04:00 05/12/25 06:00 05/12/25 06:00 Temperature Pulse Rate 66 61 66 Respiratory Rate 16 Blood Pressure 112/63 104/58 L Pulse Oximetry 99 Oxygen Delivery Oxygen Flow Rate 05/12/25 06:00 05/12/25 08:00 05/12/25 08:40 Temperature 97.7 F Pulse Rate 66 68 Respiratory Rate 18 Blood Pressure 104/58 L 107/55 L Pulse Oximetry 99 99 Oxygen Delivery Nasal Cannula Oxygen Flow Rate 2 05/12/25 08:41 05/12/25 08:50 05/12/25 09:22 Temperature 98.1 F Pulse Rate 68 69 67 Respiratory Rate 17 19 18 Blood Pressure 116/64 Pulse Oximetry Oxygen Delivery Oxygen Flow Rate Exam Const: General: comfortable, no acute distress and ill appearing chronically Nutritional Appearance: average body habitus Orientation/consciousness: oriented to person and oriented to place HENMT: Head: normocephalic and atraumatic Ears: hearing grossly normal bilaterally Mouth: Yes moist mucous membranes Eyes: General: appearance normal, both eyes and all related structures Pupils: Equal, round and reactive pupils present Neck: Neck: normal visual inspection and full ROM Resp: Effort & Inspection: no respiratory distress Auscultation: clear to auscultation bilaterally Cardio: Rate: regular rate Rhythm: abnormal rhythm irregularly irregular Peripheral pulses: Peripheral pulses 2+ throughout GI: Inspection: non-distended and no visible herniation GI Palp: Yes Soft to palpation, Yes Tenderness to palpation present (GI) (very mild LLQ tenderness), No Guarding due to palpation present (GI) and No Rebound tenderness present Auscultation: normal bowel sounds Rectal Exam: deferred Skin: General skin exam: pallor Neuro: General: moves all extremities and no focal motor deficits Speech: normal speech Extrem: General: no edema Other: Right anterior griffin hematoma that is about 30% smaller than my last exam, still with a small 2 x 3 cm dry black eschar with no drainage, no erythema, and no warmth. Still slightly tender. Unstageable right heel ulcer with 100% dry, firm, black eschar. Mild diffuse edema of the right foot. No surrounding erythema or warmth. No drainage. Psych: Mental Status: mental status grossly normal Attitude: cooperative Insight: Fair insight present (Psych) Results Labs 05/12/25 04:38 05/12/25 04:38 Labs: Abnormal lab results 05/11/25 05/11/25 05/12/25 Range/Units 18:39 19:19 00:13 RBC 2.05 L (4.6-6.20) M/mm3 Hgb 5.2 L* D (14.0-18.0) g/dL Hct 17.6 L* (42.0-52.0) % MCH 25.4 L (26-34) pg MCHC 29.5 L (32-36) g/dl RDW 21.2 H (11.5-14.5) % MPV 10.9 H (7.4-10.4) fl Immature Gran % (Auto) 0.9 H (0-0.5) % Neut % (Auto) 81.3 H (45.5-73.1) % Lymph % (Auto) 8.0 L (18.3-44.2) % [place] % (Auto) 9.5 H (2.6-8.5) % Lymph # (Auto) 0.69 L (0.9-3.2) K/mm3 [place] # (Auto) 0.8 H (0.1-0.6) K/mm3 Abs Immat Gran (auto) 0.08 H (0.00-0.031) K/mm3 Absolute Neuts (auto) 7.0 H (1.3-6.7) K/mm3 PT 23.2 H (11.1-14.7) Seconds APTT 37.8 H (22.3-36.8) Seconds D-Dimer 1.07 H (<0.48) ug/mL ABG pCO2 46.2 H (35.0-45.0) mmHg ABG HCO3 27.1 H (22.0-26.0) mEq/l ABG O2 Content 10.7 L (16.0-22.0) %vol Reduced Hemoglobin 5.1 H (0-5.0) %THb Total Hemoglobin 8.1 L (12.0-18.0) g/dL Sodium 127 L (137-145) mmol/L Potassium 5.4 H (3.4-5.0) mmol/L Chloride 87 L (98-107) mmol/L BUN 78 H D (9-20) mg/dL Creatinine 5.57 H (0.7-1.3) mg/dL Estimated GFR 10 L (59 - ) Glucose 120 H (65-110) mg/dL POC Capillary Glucose (65-105) mg/dl Calcium 7.9 L (8.4-10.2) mg/dL Phosphorus (2.5-4.5) mg/dL AST 417 H (17-59) U/L ALT 337 H (6-50) U/L Total Protein 5.7 L (6.3-8.2) g/dL Albumin 3.4 L (3.5-5.1) g/dL Crossmatch See Detail 05/12/25 05/12/25 Range/Units 01:20 04:38 RBC 3.27 L (4.6-6.20) M/mm3 Hgb 8.7 L D (14.0-18.0) g/dL Hct 28.5 L (42.0-52.0) % MCH (26-34) pg MCHC 30.5 L (32-36) g/dl RDW 20.0 H (11.5-14.5) % MPV (7.4-10.4) fl Immature Gran % (Auto) 1.0 H (0-0.5) % Neut % (Auto) 80.3 H (45.5-73.1) % Lymph % (Auto) 8.6 L (18.3-44.2) % [place] % (Auto) 8.7 H (2.6-8.5) % Lymph # (Auto) 0.70 L (0.9-3.2) K/mm3 [place] # (Auto) 0.7 H (0.1-0.6) K/mm3 Abs Immat Gran (auto) 0.08 H (0.00-0.031) K/mm3 Absolute Neuts (auto) (1.3-6.7) K/mm3 PT 21.7 H (11.1-14.7) Seconds APTT 38.8 H (22.3-36.8) Seconds D-Dimer (<0.48) ug/mL ABG pCO2 (35.0-45.0) mmHg ABG HCO3 (22.0-26.0) mEq/l ABG O2 Content (16.0-22.0) %vol Reduced Hemoglobin (0-5.0) %THb Total Hemoglobin (12.0-18.0) g/dL Sodium 128 L (137-145) mmol/L Potassium (3.4-5.0) mmol/L Chloride 91 L (98-107) mmol/L BUN 74 H (9-20) mg/dL Creatinine 5.43 H (0.7-1.3) mg/dL Estimated GFR 10 L (59 - ) Glucose 123 H (65-110) mg/dL POC Capillary Glucose 138 H (65-105) mg/dl Calcium 7.4 L (8.4-10.2) mg/dL Phosphorus 6.4 H (2.5-4.5) mg/dL AST 221 H (17-59) U/L ALT 279 H (6-50) U/L Total Protein 5.3 L (6.3-8.2) g/dL Albumin 3.0 L (3.5-5.1) g/dL Crossmatch Diabetes panel 05/11/25 05/12/25 Range/Units 18:39 04:38 Sodium 127 L 128 L (137-145) mmol/L Potassium 5.4 H 5.0 (3.4-5.0) mmol/L Chloride 87 L 91 L (98-107) mmol/L Carbon Dioxide 29 27 (22-30) mmol/L BUN 78 H D 74 H (9-20) mg/dL Creatinine 5.57 H 5.43 H (0.7-1.3) mg/dL Glucose 120 H 123 H (65-110) mg/dL Calcium 7.9 L 7.4 L (8.4-10.2) mg/dL AST 417 H 221 H (17-59) U/L ALT 337 H 279 H (6-50) U/L Alkaline Phosphatase 58 52 (38-126) U/L Total Protein 5.7 L 5.3 L (6.3-8.2) g/dL Albumin 3.4 L 3.0 L (3.5-5.1) g/dL Calcium panel 05/11/25 05/12/25 Range/Units 18:39 04:38 Calcium 7.9 L 7.4 L (8.4-10.2) mg/dL Phosphorus 6.4 H (2.5-4.5) mg/dL Albumin 3.4 L 3.0 L (3.5-5.1) g/dL Pituitary panel 05/11/25 05/12/25 Range/Units 18:39 04:38 Sodium 127 L 128 L (137-145) mmol/L Potassium 5.4 H 5.0 (3.4-5.0) mmol/L Chloride 87 L 91 L (98-107) mmol/L Carbon Dioxide 29 27 (22-30) mmol/L BUN 78 H D 74 H (9-20) mg/dL Creatinine 5.57 H 5.43 H (0.7-1.3) mg/dL Glucose 120 H 123 H (65-110) mg/dL Calcium 7.9 L 7.4 L (8.4-10.2) mg/dL Adrenal panel 05/11/25 05/12/25 Range/Units 18:39 04:38 Sodium 127 L 128 L (137-145) mmol/L Potassium 5.4 H 5.0 (3.4-5.0) mmol/L Chloride 87 L 91 L (98-107) mmol/L Carbon Dioxide 29 27 (22-30) mmol/L BUN 78 H D 74 H (9-20) mg/dL Creatinine 5.57 H 5.43 H (0.7-1.3) mg/dL Glucose 120 H 123 H (65-110) mg/dL Calcium 7.9 L 7.4 L (8.4-10.2) mg/dL Total Bilirubin 0.3 0.5 (0.2-1.3) mg/dL AST 417 H 221 H (17-59) U/L ALT 337 H 279 H (6-50) U/L Alkaline Phosphatase 58 52 (38-126) U/L Total Protein 5.7 L 5.3 L (6.3-8.2) g/dL Albumin 3.4 L 3.0 L (3.5-5.1) g/dL All other labs normal. Imaging Additional studies: ITS Impressions Chest X-Ray 05/11/25 19:41 IMPRESSION: No acute cardiopulmonary process. Abdomen/Pelvis CTA 05/11/25 20:52 IMPRESSION: Mild atelectasis/edema in the lung bases. Small bilateral pleural effusions. Hepatomegaly with mild periportal edema and mild perihepatic fluid. Pericholecystic fluid with fluid/inflammation in the min hepatis and surrounding the extrahepatic bile ducts. Consider hepatitis, cholecystitis, and cholangitis in the differential. Bladder wall thickening may be secondary to cystitis or chronic outlet obstruction from prostatomegaly. Extensive atherosclerotic disease.
[2025-05-12] MEDS: EPOETIN ALFA 20,000 UNITS/ML VIAL 20000 UNITS IV PUSH (11:01)
--- NOTE | 2025-05-12 13:09 | PC.NURSE ---
Spoke with JUAREZ Romero. States that pt is not scheduled for any kind of GI procedure today, so pt can have a diet from GI standpoint.
[2025-05-12] MEDS: CENTRAL LINE FLUSH 10 ML IV PUSH ×2 (14:01→21:06)
[2025-05-12] MEDS: CINACALCET 30 MG TABLET 90 MG PO (14:01)
--- NOTE | 2025-05-12 14:15 | PM.EVENT ---
Event Note Event Note Event Note: On HD and tolerating it well. bp is good. removing no fluid. seen at noon today
[2025-05-12] MEDS: PENTOXIFYLLINE 400 MG TABCR PO (16:41)
--- NOTE | 2025-05-12 17:45 | PM.IMPN ---
Progress Note: A&P Assessment and Plan (1) GI (gastrointestinal bleed): Qualifiers: GI bleed type/associated pathology: melena Qualified Code(s): K92.1 - Melena Code(s): K92.2 - Gastrointestinal hemorrhage, unspecified Status: Acute (2) Chronic anticoagulation: Code(s): Z79.01 - joint terminal attack controller (current) use of anticoagulants Status: Acute (3) AVM (arteriovenous malformation) of colon, acquired with hemorrhage: Code(s): K55.21 - Angiodysplasia of colon with hemorrhage Status: Acute (4) Cholelithiasis: Qualifiers: Biliary obstruction: without biliary obstruction Cholecystitis acuity: acute and chronic Cholecystitis presence: with cholecystitis Cholelithiasis location: gallbladder Qualified Code(s): K80.12 - Calculus of gallbladder with acute and chronic cholecystitis without obstruction Code(s): K80.20 - Calculus of gallbladder without cholecystitis without obstruction Status: Acute (5) Transaminitis: Code(s): R74.01 - Elevation of levels of liver transaminase levels Status: Acute (6) Hematoma of right lower leg: Code(s): S80.11XA - Contusion of right lower leg, initial encounter Status: Acute (7) ESRD on dialysis: Code(s): N18.6 - End stage renal disease; Z99.2 - Dependence on renal dialysis Status: Acute (8) Acute hyperkalemia: Code(s): E87.5 - Hyperkalemia Status: Acute (9) Insulin dependent type 2 diabetes mellitus: Onset Date: ~2009 Code(s): E11.9 - Type 2 diabetes mellitus without complications; Z79.4 - joint terminal attack controller (current) use of insulin Status: Acute (10) Unstageable pressure ulcer of right heel: Code(s): L89.610 - Pressure ulcer of right heel, unstageable Status: Acute Plan The patient presents to the ER hypotensive. Hypotension is likely due to combination of GI bleed and possible sepsis due to underlying infection. Patient did receive 1 L fluid bolus in the ER but further fluid boluses were not continued given the patient's history of end-stage renal disease and history of difficulties with fluid overload in the past. Patient did have significant anemia with large melenic stool with recent history of cecal AVM be on chronic anticoagulation with Eliquis. Eliquis has been held. Patient's INR was elevated to 2.1 which is unusual for the patient. He has been on Eliquis for a while and usually does not have an elevated INR on prior labs. Subsequently DIC panel was obtained which demonstrated and mildly elevated D-dimer but normal fibrinogen making DIC less likely. Patient is currently receiving 2/3 units of packed red blood cells at the time my evaluation. Will transfuse 3rd unit and then repeat labs for a.m.. With the initiation of the 3rd unit of blood the patient blood pressures have stabilized and Levophed has been on hold since 3rd unit of blood has been started. Will avoid anti-platelet medications and thrombolytics. Patient has been started on IV Protonix. If hemoglobin has not stabilized after 30 unit blood transfusion or patient develops recurrent hypotension the patient may need Kcentra. Will consult Gastroenterology. Patient is NPO. The patient's CT also demonstrated edema and inflammation around the gallbladder but patient does not have any reproducible pain on palpation to the right upper quadrant. The he does have increased transaminitis compared to prior discharge values. He was started on empiric antibiotic therapy for possible cholecystitis or ascending cholangitis with Zosyn. General surgery has been consulted. Patient also has a large hematoma on the right anterior griffin that has overlying eschar scab formation. But has a large area of surrounding erythema. A area was examined with ultrasound with visualized large area fluid collection noted beneath. Patient could also have an infected hematoma at this site resulting infection. Will ask General surgery's opinion on this as well. Patient does have end-stage renal disease and receives hemodialysis Sunday. He was mildly hyperkalemic in the ER. The no evidence of peaked T-waves on telemetry and no evidence of acute dysrhythmia decompensation. Will repeat electrolyte panel in a.m.. Patient does have diabetes but is currently euglycemic. Will hold home insulin and patient has been placed on low-dose insulin correction for NPO patient with Accu-Cheks q.6 hours and hypoglycemia protocol as needed. Wound Care has been consulted for the patient's left heel decubitus ulcer. Pressure relieving boots have been ordered. Patient's home antihypertensives, aspirin and Eliquis on hold Given the patient's metabolic encephalopathy is home gabapentin, melatonin, and tramadol on hold. Patient has been admitted to the ICU and patient case manager has been consulted. Patient is 79 y/o male a resident of [place], with history of ESRD on HD and Atrial fibrillation on chronic anticoagulation with Eliquis, presented to ER with lethargy and abnormal lab low Hgb from the [place], upon arrival patient hgb 5.2. patient was transfused, and his hgb improved, Also patient has history of AVM on previous colonoscopy, patient was seen by GI and recommended since patient had colonoscopy recently suggesting capsule endoscopy for further evaluate, patient is clinically stable, Ct scan of abdomen was concerning of cholecystitis however patient does not any abdominal pain, seen surgery service does not recommend any surgical intervention, will transfer patient to medical floor since he is clinically stable will monitor. . Subjective Date/time seen: 05/12/25 17:45 Interval history: Sent from [facility] for abnormal labs H&P-Narrative: 79-year-old unfortunate male with a past medical history end-stage renal disease on hemodialysis Sunday, insulin-dependent diabetes mellitus, essential hypertension, paroxysmal atrial fibrillation on chronic anticoagulation with Eliquis, peripheral artery disease, obstructive sleep apnea, COPD and a recent hospitalization for GI bleed due to cecal AVM presented to the ER from [facility] via EMS due to low hemoglobin on outpatient labs. Patient is somnolent difficult to arouse and as such majority of information was provided by ER physician report, EMS report and review of past medical records. Patient had reported lower abdominal pain and feeling weak to ER staff. He was alert orient x2 on arrival to the ER but was only alert oriented to his name at the time of my evaluation. He would not stay awake long enough to answer any further questions despite multiple attempts. Patient had denied any nausea vomiting back pain or chest discomfort ER staff. He went to dialysis on Sunday without any issues. Patient had not had any reported melena rectal bleeding according to the patient or [facility] report. However, just before the patient was transferred up to the ICU he had a large melenic stool. 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 He had a 2nd admission 04/23/2025 through 04/28/2025 at which time he had some transient abdominal pain and elevated AST and ALT. The patient's AST and ALT trended down and abdominal pain resolved with conservative management. In the ER labs demonstrated severe anemia with hemoglobin of 5. His blood pressures in the ER ranged from the mid 70s to low 90 range. A right femoral central line was placed by ER staff and the patient was started on Levophed and 3 units of blood were ordered for transfusion. CTA of the abdomen pelvis demonstrated hepatomegaly with mild periportal edema and mild Yoon hepatic fluid pericholecystic fluid with inflammation in the min hepatis and surrounding extrahepatic bile ducts could be consistent with hepatitis cholecystitis and cholangitis, bladder wall thickening possibly secondary to cystitis versus chronic outlet obstruction and mild atelectasis or edema in the bases and small bilateral pleural effusion. Patient was given a dose of Zosyn and started on vancomycin with pharmacy to dose. On exam the patient was noted to have a large area of eschar to the anterior right griffin with surrounding erythema. The patient had told the nurse it was due to recent fall but was unable to provide me with any details. He did cry out in pain with any palpation of the area. He has been afebrile since presentation. Patient is 79 y/o male a resident of [place], with history of ESRD on HD and Atrial fibrillation on chronic anticoagulation with Eliquis, presented to ER with lethargy and abnormal lab low Hgb from the [place], upon arrival patient hgb 5.2. patient was transfused, and his hgb improved, Also patient has history of AVM on previous colonoscopy, patient was seen by GI and recommended since patient had colonoscopy recently suggesting capsule endoscopy for further evaluate, patient is clinically stable, Ct scan of abdomen was concerning of cholecystitis however patient does not any abdominal pain, seen surgery service does not recommend any surgical intervention, will transfer patient to medical floor since he is clinically stable will monitor. Review of Systems Review of Systems: All systems reviewed & are unremarkable except as noted in HPI and below Exam Narrative: Patient is comfortable, NAD HEENT: eyes are clear and none icteric LUNGS:CTA HEART: RR S1S2 ABD: BS+, Soft and nontender Lower extremities: no edema SKIN: nonjaundiced Neuro: grossly intact. Objective Data Vital Signs Vital Signs: Vital Signs - 24 hr 05/11/25 17:49 05/11/25 17:50 05/11/25 17:51 Temperature 36.6 C Pulse Rate 72 75 69 Respiratory Rate 22 H 21 H 22 H Blood Pressure 98/55 L 98/55 L Pulse Oximetry 99 100 99 Oxygen Delivery Room Air Oxygen Flow Rate 05/11/25 17:55 05/11/25 18:00 05/11/25 18:05 Temperature Pulse Rate 74 69 Respiratory Rate 22 H 21 H 10 L Blood Pressure 88/58 L Pulse Oximetry 100 100 100 Oxygen Delivery Oxygen Flow Rate 05/11/25 18:18 05/11/25 18:39 05/11/25 19:07 Temperature Pulse Rate 72 74 71 Respiratory Rate 14 24 H 23 H Blood Pressure 89/51 L Pulse Oximetry 100 96 99 Oxygen Delivery Oxygen Flow Rate 05/11/25 19:34 05/11/25 19:47 05/11/25 20:00 Temperature Pulse Rate 64 66 66 Respiratory Rate 22 H 20 21 H Blood Pressure 93/46 L 88/51 L Pulse Oximetry 99 100 Oxygen Delivery Oxygen Flow Rate 05/11/25 20:01 05/11/25 20:28 05/11/25 20:30 Temperature Pulse Rate 65 69 68 Respiratory Rate 21 H 21 H 22 H Blood Pressure Pulse Oximetry 100 99 Oxygen Delivery Oxygen Flow Rate 05/11/25 20:42 05/11/25 20:45 05/11/25 20:46 Temperature Pulse Rate 62 65 64 Respiratory Rate 15 11 L Blood Pressure 79/43 L 79/47 L Pulse Oximetry 99 Oxygen Delivery Oxygen Flow Rate 05/11/25 21:06 05/11/25 21:23 05/11/25 21:37 Temperature 36.5 C 36.4 C L Pulse Rate 70 66 70 Respiratory Rate 19 19 21 H Blood Pressure 78/45 L 86/57 L Pulse Oximetry 100 100 100 Oxygen Delivery Oxygen Flow Rate 05/11/25 21:40 05/11/25 21:44 05/11/25 21:45 Temperature Pulse Rate 67 64 62 Respiratory Rate 19 18 Blood Pressure 90/59 L 90/59 L Pulse Oximetry 100 100 Oxygen Delivery Oxygen Flow Rate 05/11/25 21:50 05/11/25 21:52 05/11/25 21:57 Temperature 36.4 C 36.4 C Pulse Rate 70 66 70 Respiratory Rate 17 17 19 Blood Pressure 93/62 L 93/62 L 93/62 L Pulse Oximetry 100 100 100 Oxygen Delivery Oxygen Flow Rate 05/11/25 22:00 05/11/25 22:01 05/11/25 22:10 Temperature Pulse Rate 69 69 67 Respiratory Rate 18 17 18 Blood Pressure 107/59 L 104/66 Pulse Oximetry 100 Oxygen Delivery Oxygen Flow Rate 05/11/25 22:12 05/11/25 22:15 05/11/25 22:20 Temperature 36.4 C L Pulse Rate 69 67 66 Respiratory Rate 16 18 19 Blood Pressure 104/66 114/65 Pulse Oximetry 99 99 99 Oxygen Delivery Oxygen Flow Rate 05/11/25 22:30 05/11/25 22:31 05/11/25 22:40 Temperature Pulse Rate 66 65 73 Respiratory Rate 16 18 19 Blood Pressure 108/62 120/84 Pulse Oximetry 100 100 99 Oxygen Delivery Oxygen Flow Rate 05/11/25 22:45 05/11/25 22:50 05/11/25 23:37 Temperature Pulse Rate 69 76 76 Respiratory Rate 19 18 18 Blood Pressure 111/73 111/73 Pulse Oximetry 99 Oxygen Delivery Oxygen Flow Rate 05/11/25 23:45 05/11/25 23:45 05/12/25 00:00 Temperature 36.6 C Pulse Rate 70 70 67 Respiratory Rate 19 Blood Pressure 133/79 133/79 135/68 Pulse Oximetry 99 Oxygen Delivery Oxygen Flow Rate 05/12/25 00:00 05/12/25 00:00 05/12/25 00:00 Temperature 36.9 C Pulse Rate 67 67 Respiratory Rate 19 Blood Pressure 135/68 Pulse Oximetry 99 99 Oxygen Delivery Nasal Cannula Oxygen Flow Rate 2 05/12/25 00:15 05/12/25 00:20 05/12/25 01:00 Temperature Pulse Rate 67 69 Respiratory Rate 78 H Blood Pressure 116/69 129/72 Pulse Oximetry 99 Oxygen Delivery Nasal Cannula Oxygen Flow Rate 2 05/12/25 01:15 05/12/25 01:27 05/12/25 01:42 Temperature 36.7 C 36.6 C 36.7 C Pulse Rate 70 70 66 Respiratory Rate 18 16 16 Blood Pressure 108/58 L 108/58 L 118/58 L Pulse Oximetry 100 100 100 Oxygen Delivery Oxygen Flow Rate 05/12/25 02:00 05/12/25 02:00 05/12/25 02:00 Temperature Pulse Rate 60 68 63 Respiratory Rate 16 Blood Pressure 107/63 107/63 Pulse Oximetry 100 Oxygen Delivery Oxygen Flow Rate 05/12/25 02:42 05/12/25 03:42 05/12/25 04:00 Temperature 36.3 C L 36.7 C 36.3 C L Pulse Rate 64 65 64 Respiratory Rate 16 16 16 Blood Pressure 112/61 120/72 112/63 Pulse Oximetry 100 99 98 Oxygen Delivery Oxygen Flow Rate 05/12/25 04:00 05/12/25 04:00 05/12/25 04:00 Temperature 36.1 C L Pulse Rate 66 66 Respiratory Rate 16 Blood Pressure 112/63 Pulse Oximetry 100 100 Oxygen Delivery Nasal Cannula Oxygen Flow Rate 2 05/12/25 04:00 05/12/25 06:00 05/12/25 06:00 Temperature Pulse Rate 66 61 66 Respiratory Rate 16 Blood Pressure 112/63 104/58 L Pulse Oximetry 99 Oxygen Delivery Oxygen Flow Rate 05/12/25 06:00 05/12/25 08:00 05/12/25 08:00 Temperature 36.5 C Pulse Rate 66 68 68 Respiratory Rate 18 Blood Pressure 104/58 L 107/55 L 107/55 L Pulse Oximetry 99 Oxygen Delivery Oxygen Flow Rate 05/12/25 08:00 05/12/25 08:00 05/12/25 08:40 Temperature Pulse Rate 68 Respiratory Rate Blood Pressure Pulse Oximetry 99 99 Oxygen Delivery Nasal Cannula Nasal Cannula Oxygen Flow Rate 2 2 05/12/25 08:41 05/12/25 08:50 05/12/25 09:22 Temperature 36.7 C Pulse Rate 68 69 67 Respiratory Rate 17 19 18 Blood Pressure 116/64 Pulse Oximetry Oxygen Delivery Oxygen Flow Rate 05/12/25 09:30 05/12/25 09:45 05/12/25 10:00 Temperature 35.9 C L Pulse Rate 71 71 72 Respiratory Rate 19 Blood Pressure 111/64 118/72 121/67 Pulse Oximetry 99 Oxygen Delivery Oxygen Flow Rate 05/12/25 10:00 05/12/25 10:00 05/12/25 10:00 Temperature Pulse Rate 71 68 68 Respiratory Rate Blood Pressure 121/67 118/57 L Pulse Oximetry Oxygen Delivery Oxygen Flow Rate 05/12/25 10:15 05/12/25 10:30 05/12/25 10:45 Temperature Pulse Rate 68 69 71 Respiratory Rate Blood Pressure 118/57 L 124/64 124/69 Pulse Oximetry Oxygen Delivery Oxygen Flow Rate 05/12/25 11:00 05/12/25 11:15 05/12/25 11:30 Temperature Pulse Rate 79 79 76 Respiratory Rate Blood Pressure 136/76 130/64 130/64 Pulse Oximetry Oxygen Delivery Oxygen Flow Rate 05/12/25 11:45 05/12/25 12:00 05/12/25 12:00 Temperature Pulse Rate 79 85 Respiratory Rate Blood Pressure 127/60 118/70 Pulse Oximetry 98 Oxygen Delivery Nasal Cannula Oxygen Flow Rate 2 05/12/25 12:00 05/12/25 12:00 05/12/25 12:00 Temperature 36.6 C Pulse Rate 84 84 76 Respiratory Rate 20 Blood Pressure 128/69 128/69 Pulse Oximetry 98 Oxygen Delivery Oxygen Flow Rate 05/12/25 12:15 05/12/25 12:30 05/12/25 12:45 Temperature Pulse Rate 84 81 82 Respiratory Rate Blood Pressure 128/69 138/64 136/116 H Pulse Oximetry Oxygen Delivery Oxygen Flow Rate 05/12/25 13:39 05/12/25 13:46 05/12/25 14:00 Temperature Pulse Rate 85 84 85 Respiratory Rate 20 17 Blood Pressure 138/80 Pulse Oximetry Oxygen Delivery Oxygen Flow Rate 05/12/25 14:00 05/12/25 14:00 05/12/25 16:00 Temperature Pulse Rate 85 85 83 Respiratory Rate 15 Blood Pressure 138/80 Pulse Oximetry 96 Oxygen Delivery Oxygen Flow Rate 05/12/25 16:00 Temperature Pulse Rate 89 Respiratory Rate 20 Blood Pressure 130/71 Pulse Oximetry 98 Oxygen Delivery Oxygen Flow Rate Intake/Output Intake/Output: Intake & Output 05/09/25 05/10/25 05/11/25 05/12/25 23:59 23:59 23:59 23:59 Intake Total 2968.9 3406.1 Output Total 0 Balance 2968.9 3406.1 Meds/Results Medications: Active Medications Generic Name Dose Route Start Last Admin Trade Name Freq PRN Reason Stop Dose Admin Acetaminophen 650 mg 05/11/25 21:37 05/12/25 17:22 Acetaminophen 325 Mg Tablet PO 650 mg Q4H PRN Administration Mild Pain (1-3) or Fever Cinacalcet 90 mg 05/12/25 09:00 05/12/25 14:01 Cinacalcet 30 Mg Tablet PO 90 mg QAM DAVID Administration Dextrose 12.5 gm 05/12/25 01:20 Dextrose 50% 25 Gm/50 Ml Syringe IV PUSH PRN PRN Hypoglycemia Protocol Finasteride 5 mg 05/12/25 09:00 05/12/25 08:53 Finasteride 5 Mg Tablet PO 5 mg QAM DAVID Administration Glucagon 1 mg 05/12/25 01:20 Glucagon For Inj 1 Mg Vial IM PRN PRN Hypoglycemia Protocol Glucose 15 gm 05/12/25 01:20 Glucose Oral Gel 15 Gm Of Glucse In 37.5 Gm Tube PO PRN PRN Hypoglycemia Protocol Dextrose 1,000 mls @ 100 mls/hr 05/12/25 01:20 Dextrose 5% 1,000 Ml IVPB PRN PRN Hypoglycemia Protocol Piperacillin Sod/Tazobactam 50 mls @ 100 mls/hr 05/12/25 08:00 05/12/25 16:53 Sod 2.25 gm/ Sodium Chloride IVPB Infused Q8H DAVID Infusion Albumin Human 50 mls @ 999 mls/hr 05/12/25 07:57 Albutein IVPB 05/13/25 07:56 Q10M PRN HYPOTENSION Insulin Aspart 2 - 5 units 05/12/25 17:00 05/12/25 17:32 Insulin Aspart (*Bkc) 100 Units/Ml SUB-Q Not Given TIDWM DAVID Protocol Levalbuterol HCl 0.63 mg 05/12/25 02:00 05/12/25 13:37 Levalbuterol Neb 1.25 Mg/3 Ml INHALATION 0.63 mg Q6HRT DAVID Administration Loratadine 10 mg 05/12/25 09:00 05/12/25 08:53 Loratadine 10 Mg Tablet PO 10 mg DAILY DAVID Administration Ondansetron HCl 4 mg 05/11/25 21:37 Ondansetron Inj 4 Mg/2 Ml Vial IV PUSH Q4H PRN Nausea Pantoprazole Sodium 40 mg 05/12/25 09:00 05/12/25 08:37 Pantoprazole Sodium Iv 40 Mg Vial IV PUSH 40 mg Q12HR DAVID Administration Pentoxifylline 400 mg 05/12/25 18:00 05/12/25 16:41 Pentoxifylline 400 Mg Tabcr PO 400 mg QPM DAVID Administration Sevelamer Carbonate 0.8 gm 05/12/25 08:00 05/12/25 16:41 Sevelamer Carbonate 0.8 Gm Oral Powder Packet PO 0.8 gm TIDWM DAVID Administration Sodium Chloride 10 ml 05/12/25 14:00 05/12/25 14:01 Central Line Flush IV PUSH 10 ml Q8HR DAVID Administration Sodium Chloride 20 ml 05/12/25 06:33 Central Line Flush IV PUSH PRN PRN after blood draws Tamsulosin HCl 0.4 mg 05/12/25 21:00 Tamsulosin Hcl 0.4 Mg Capsule PO QHS DVAID Umeclidinium [place] 1 puff 05/12/25 08:00 05/12/25 08:50 Umeclidinium [place] 62.5 Mcg Ellipta INHALATION 1 puff DAILYRT DAVID Administration Radiology Results: ITS Impressions Chest X-Ray 05/11/25 19:41 IMPRESSION: No acute cardiopulmonary process. Abdomen/Pelvis CTA 05/11/25 20:52 IMPRESSION: Mild atelectasis/edema in the lung bases. Small bilateral pleural effusions. Hepatomegaly with mild periportal edema and mild perihepatic fluid. Pericholecystic fluid with fluid/inflammation in the min hepatis and surrounding the extrahepatic bile ducts. Consider hepatitis, cholecystitis, and cholangitis in the differential. Bladder wall thickening may be secondary to cystitis or chronic outlet obstruction from prostatomegaly. Extensive atherosclerotic disease. Labs Labs: Laboratory Results - last 24 hr 05/11/25 05/11/25 05/11/25 18:39 19:19 21:43 WBC 8.7 RBC 2.05 L Hgb 5.2 L* D Hct 17.6 L* MCV 85.9 MCH 25.4 L MCHC 29.5 L RDW 21.2 H Plt Count 310 MPV 10.9 H Immature Gran % (Auto) 0.9 H Neut % (Auto) 81.3 H Lymph % (Auto) 8.0 L [place] % (Auto) 9.5 H Eos % (Auto) 0.1 Baso % (Auto) 0.2 Lymph # (Auto) 0.69 L [place] # (Auto) 0.8 H Eos # (Auto) 0.0 Baso # (Auto) 0.0 Abs Immat Gran (auto) 0.08 H Absolute Neuts (auto) 7.0 H Absolute Nucleated RBC 0.000 Band Neutrophils % 0 Nucleated RBC % 0.0 Platelet Estimate Adequate Hypochromasia 1+ Anisocytosis 3+ Schistocytes None seen PT 23.2 H INR 2.1 APTT 37.8 H Fibrinogen 341 D-Dimer 1.07 H Puncture Site ABG pH ABG pCO2 ABG pO2 ABG PO2/FiO2 Ratio ABG HCO3 ABG O2 Saturation ABG O2 Content ABG Base Excess A-a Gradient Oxyhemoglobin Carboxyhemoglobin Methemoglobin Reduced Hemoglobin Total Hemoglobin O2 Delivery Device O2 Liters/Min FiO2 Sodium 127 L Potassium 5.4 H Chloride 87 L Carbon Dioxide 29 Anion Gap 11 BUN 78 H D Creatinine 5.57 H Estim Creat Clear Calc 9 Estimated GFR 10 L Glucose 120 H POC Capillary Glucose Lactic Acid 1.5 Calcium 7.9 L Phosphorus Magnesium 2.2 Total Bilirubin 0.3 AST 417 H ALT 337 H Alkaline Phosphatase 58 Total Protein 5.7 L Albumin 3.4 L Nasal MRSA (PCR) Not detected Random Vancomycin Blood Type O Positive Antibody Screen Negative Crossmatch See Detail 05/12/25 05/12/25 05/12/25 00:13 01:20 04:38 WBC 8.2 RBC 3.27 L Hgb 8.7 L D Hct 28.5 L MCV 87.2 MCH 26.6 MCHC 30.5 L RDW 20.0 H Plt Count 283 MPV 10.4 Immature Gran % (Auto) 1.0 H Neut % (Auto) 80.3 H Lymph % (Auto) 8.6 L [place] % (Auto) 8.7 H Eos % (Auto) 0.2 Baso % (Auto) 1.2 Lymph # (Auto) 0.70 L [place] # (Auto) 0.7 H Eos # (Auto) 0.0 Baso # (Auto) 0.1 Abs Immat Gran (auto) 0.08 H Absolute Neuts (auto) 6.5 Absolute Nucleated RBC 0.000 Band Neutrophils % Nucleated RBC % 0.0 Platelet Estimate Hypochromasia Anisocytosis Schistocytes PT 21.7 H INR 1.9 APTT 38.8 H Fibrinogen D-Dimer Puncture Site Right radial ABG pH 7.386 ABG pCO2 46.2 H ABG pO2 80.3 ABG PO2/FiO2 Ratio 2.87 ABG HCO3 27.1 H ABG O2 Saturation 95.6 ABG O2 Content 10.7 L ABG Base Excess 1.8 A-a Gradient 64.8 Oxyhemoglobin 92.8 Carboxyhemoglobin 1.8 Methemoglobin 0.3 Reduced Hemoglobin 5.1 H Total Hemoglobin 8.1 L O2 Delivery Device Nasal cannula O2 Liters/Min 2.0 FiO2 28 Sodium 128 L Potassium 5.0 Chloride 91 L Carbon Dioxide 27 Anion Gap 10 BUN 74 H Creatinine 5.43 H Estim Creat Clear Calc 10 Estimated GFR 10 L Glucose 123 H POC Capillary Glucose 138 H Lactic Acid 1.4 Calcium 7.4 L Phosphorus 6.4 H Magnesium Total Bilirubin 0.5 AST 221 H ALT 279 H Alkaline Phosphatase 52 Total Protein 5.3 L Albumin 3.0 L Nasal MRSA (PCR) Random Vancomycin 16.6 Blood Type Antibody Screen Crossmatch 05/12/25 05/12/25 11:05 16:32 WBC RBC Hgb Hct MCV MCH MCHC RDW Plt Count MPV Immature Gran % (Auto) Neut % (Auto) Lymph % (Auto) [place] % (Auto) Eos % (Auto) Baso % (Auto) Lymph # (Auto) [place] # (Auto) Eos # (Auto) Baso # (Auto) Abs Immat Gran (auto) Absolute Neuts (auto) Absolute Nucleated RBC Band Neutrophils % Nucleated RBC % Platelet Estimate Hypochromasia Anisocytosis Schistocytes PT INR APTT Fibrinogen D-Dimer Puncture Site ABG pH ABG pCO2 ABG pO2 ABG PO2/FiO2 Ratio ABG HCO3 ABG O2 Saturation ABG O2 Content ABG Base Excess A-a Gradient Oxyhemoglobin Carboxyhemoglobin Methemoglobin Reduced Hemoglobin Total Hemoglobin O2 Delivery Device O2 Liters/Min FiO2 Sodium Potassium Chloride Carbon Dioxide Anion Gap BUN Creatinine Estim Creat Clear Calc Estimated GFR Glucose POC Capillary Glucose 93 108 H Lactic Acid Calcium Phosphorus Magnesium Total Bilirubin AST ALT Alkaline Phosphatase Total Protein Albumin Nasal MRSA (PCR) Random Vancomycin Blood Type Antibody Screen Crossmatch
--- NOTE | 2025-05-12 18:50 | PC.NURSE ---
This patient, Sam Morrissey, was transferred to [[facility], room 341 ] on 05/12/25 at 1851. Personal belongings sent with patient. Report given to [JIMMY Peralta ]. Appropriate documentation sent with patient.
[2025-05-12] MEDS: TAMSULOSIN HCL 0.4 MG CAPSULE PO (21:06)
[2025-05-13] VITALS (20 sets, daily range): BP systolic 117–122; BP diastolic 56–68; PULSE 68–94; RESP 18–22; TEMP 36.6–36.8; O2SAT 95–99
[2025-05-13] MEDS: ACETAMINOPHEN 325 MG TABLET 650 MG PO (02:35)
[2025-05-13 06:20] LABS: Hematocrit 28.9 % (42.0-52.0); Hemoglobin 8.7 g/dL (14.0-18.0); Immature Granulocyte Percent A 0.8 % (0-0.5); Lymphocytes Absolute Auto 0.58 K/mm3 (0.9-3.2); Mean Corpuscular HGB Conc 30.1 g/dl (32-36); Mean Corpuscular Hemoglobin 26.9 pg (26-34); Mean Corpuscular Volume 89.2 fl (80-100); Nucleated Red Blood Cells Absolute Auto 0.020 K/mm3 (0.0-0.012); Nucleated Red Blood Cells Perc 0.3 % (0.0-0.2); Platelet Count Result 278 k/mm3 (150-375); Red Blood Count 3.24 M/mm3 (4.6-6.20); White Blood Count 7.6 K/mm3 (4.5-10.0)
[2025-05-13 06:34] LABS: Alanine Aminotransferase 225 U/L (6-50); Albumin Level 3.0 g/dL (3.5-5.1); Alkaline Phosphatase 71 U/L (38-126); Anion Gap 7 mmol/L (4-12); Aspartate Amino Transferase 96 U/L (17-59); Bilirubin,Total 0.4 mg/dL (0.2-1.3); Blood Urea Nitrogen 38 mg/dL (9-20); Calcium 7.9 mg/dL (8.4-10.2); Carbon Dioxide 29 mmol/L (22-30); Chloride 99 mmol/L (98-107); Estimated CRCL calculation 14 ml/min; Estimated Glomerular Filt Rate 16; Glucose 128 mg/dL (65-110); Lipase 123 U/L (23-300); Magnesium 2.0 mg/dL (1.6-2.3); Potassium 4.1 mmol/L (3.4-5.0); Sodium 135 mmol/L (137-145); Total Protein 5.5 g/dL (6.3-8.2)
[2025-05-13] MEDS: UMECLIDINIUM BROMIDE 62.5 MCG ELLIPTA 1 PUFF INHALATION (08:21)
[2025-05-13] MEDS: CENTRAL LINE FLUSH 10 ML IV PUSH ×3 (08:32→21:11)
[2025-05-13] MEDS: PANTOPRAZOLE SODIUM IV 40 MG VIAL IV PUSH ×2 (08:36→21:11)
[2025-05-13] MEDS: LORATADINE 10 MG TABLET PO (08:36)
[2025-05-13] MEDS: CINACALCET 30 MG TABLET 90 MG PO (08:36)
[2025-05-13] MEDS: PIPERACILLIN/TAZOBACTAM SOD 2.25 GM in SODIUM CHLORIDE 0.9% IV 50 ML 100 ML IVPB ×2 (08:36→15:34)
[2025-05-13] MEDS: FINASTERIDE 5 MG TABLET PO (08:36)
[2025-05-13] MEDS: SEVELAMER CARBONATE 0.8 GM ORAL POWDER PACKET PO ×3 (08:36→17:38)
--- NOTE | 2025-05-13 09:38 | P.PNGS_ITS ---
Progress Note: A&P Assessment and Plan (1) Cholelithiasis: Qualifiers: Cholelithiasis location: gallbladder Cholecystitis presence: with cholecystitis Cholecystitis acuity: acute and chronic Biliary obstruction: without biliary obstruction Qualified Code(s): K80.12 - Calculus of gallbladder with acute and chronic cholecystitis without obstruction Code(s): K80.20 - Calculus of gallbladder without cholecystitis without obstruction Status: Acute Assessment and Plan: * Patient is doing well today. Denies any abdominal pain, nausea, or vomiting. Hgb 8.7 (unchanged from yesterday). He does not note any blood in his stool. GI was consulted yesterday and determined that the recurrent melena was likely d/t small-bowel angiodysplasia from chronic renal failure. Video capsule endoscopy scheduled outpatient. No immediate surgical intervention necessary at this time. Patient is a very poorsurgical candidate d/t his comorbidities, so if he ever did develop RUQ pain that did not respond to medical treatment, we would consider cholecystostomy tube. (2) Transaminitis: Code(s): R74.01 - Elevation of levels of liver transaminase levels Status: Acute Assessment and Plan: * Elevation of AST and ALT from recent admission. Could be related to shock/hypotension, anemia. If this was related to cholecystitis or cholangitis, would expect RUQ pain or tenderness. Lab values decreased today. See plan above regarding his gallbladder. (3) Shock circulatory: Code(s): R57.9 - Shock, unspecified Status: Acute Assessment and Plan: * Resolved. Presented with hypotension refractory to IV fluids and melanotic stools. He received 3 units PRBCs and was briefly on Levophed infusion. Clinically improving and Hgb up from 5.2 to 8.7 this morning. No longer on vasopressors. GI has been consulted nad signed off. Continue critical care management. (4) GI (gastrointestinal bleed): Qualifiers: GI bleed type/associated pathology: melena Qualified Code(s): K92.1 - Melena Code(s): K92.2 - Gastrointestinal hemorrhage, unspecified Status: Acute Assessment and Plan: * Presented with melanotic stools and profound anemia. 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 Hx of Afib on Eliquis, which has been put on hold. GI recommended discontinuing pantoprazole and scheduling outpatient capsule endoscopy. They signed off. (5) Type 2 diabetes mellitus, with long-term current use of insulin: Qualifiers: Diabetes mellitus complication status: with neurologic complications Diabetes mellitus complication detail: with polyneuropathy Qualified Code(s): E11.42 - Type 2 diabetes mellitus with diabetic polyneuropathy; Z79.4 - salvage determiner (current) use of insulin Code(s): E11.9 - Type 2 diabetes mellitus without complications; Z79.4 - skilled nursing (current) use of insulin Status: Acute (6) Acute on chronic blood loss anemia: Code(s): D62 - Acute posthemorrhagic anemia Status: Acute Assessment and Plan: * Hgb up from 5.2 to 8.7 after transfusion of 3 units of PRBCs. GI consulted and signed off. (7) Pressure ulcer of left heel, unstageable: Code(s): L89.620 - Pressure ulcer of left heel, unstageable Status: Acute Assessment and Plan: * Unstageable left heel ulcer that appears stable with a dry firm eschar. Does not appear infected. Continue local wound care with betadine dressing changes and pressure offloading. No indication for surgical intervention at this time. (8) Hematoma of right lower leg: Code(s): S80.11XA - Contusion of right lower leg, initial encounter Status: Acute Assessment and Plan: * Stable right anterior lower leg hematoma that has decreased in size. This does not appear infected and the dry black eschar remains stable without any drainage. Would recommend to continue local wound care with betadine swabs and monitor. No indication for surgical management at this time, but may require I&D in the future if this begins draining or becomes infected. (9) COPD (chronic obstructive pulmonary disease): Qualifiers: COPD type: unspecified COPD Qualified Code(s): J44.9 - Chronic obstructive pulmonary disease, unspecified Code(s): J44.9 - Chronic obstructive pulmonary disease, unspecified Status: Chronic (10) Atrial fibrillation with controlled ventricular rate: Code(s): I48.91 - Unspecified atrial fibrillation Status: Acute Plan I have discussed the patient's case and plan of care with Dr. Muhammad. Subjective Subjective Date/Time Seen: 05/13/25 09:38 Patient reports: no new complaints, tolerating a regular diet and bowel movement Interval history: Patient is doing well today. Sitting up in bed eating breakfast. No abdominal pain, no N/V. No longer on pressors. Having BMs - paitient does not notice any melena or hematochezia. BP has remained normal. Exam Const: General: comfortable and no acute distress GI: Inspection: non-distended and no visible herniation GI Palp: Yes Soft to palpation and No Tenderness to palpation present (GI) Rectal Exam: deferred Objective Data Vital Signs Vital Signs: Vital Signs - 24 hr 05/12/25 09:45 05/12/25 10:00 05/12/25 10:00 Temperature 96.7 F L Pulse Rate 71 72 71 Respiratory Rate 19 Blood Pressure 118/72 121/67 121/67 Pulse Oximetry 99 Oxygen Delivery Oxygen Flow Rate 05/12/25 10:00 05/12/25 10:00 05/12/25 10:15 Temperature Pulse Rate 68 68 68 Respiratory Rate Blood Pressure 118/57 L 118/57 L Pulse Oximetry Oxygen Delivery Oxygen Flow Rate 05/12/25 10:30 05/12/25 10:45 05/12/25 11:00 Temperature Pulse Rate 69 71 79 Respiratory Rate Blood Pressure 124/64 124/69 136/76 Pulse Oximetry Oxygen Delivery Oxygen Flow Rate 05/12/25 11:15 05/12/25 11:30 05/12/25 11:45 Temperature Pulse Rate 79 76 79 Respiratory Rate Blood Pressure 130/64 130/64 127/60 Pulse Oximetry Oxygen Delivery Oxygen Flow Rate 05/12/25 12:00 05/12/25 12:00 05/12/25 12:00 Temperature Pulse Rate 85 84 Respiratory Rate Blood Pressure 118/70 128/69 Pulse Oximetry 98 Oxygen Delivery Nasal Cannula Oxygen Flow Rate 2 05/12/25 12:00 05/12/25 12:00 05/12/25 12:15 Temperature 97.9 F Pulse Rate 84 76 84 Respiratory Rate 20 Blood Pressure 128/69 128/69 Pulse Oximetry 98 Oxygen Delivery Oxygen Flow Rate 05/12/25 12:30 05/12/25 12:45 05/12/25 13:39 Temperature Pulse Rate 81 82 85 Respiratory Rate 20 Blood Pressure 138/64 136/116 H Pulse Oximetry Oxygen Delivery Oxygen Flow Rate 05/12/25 13:46 05/12/25 14:00 05/12/25 14:00 Temperature Pulse Rate 84 85 85 Respiratory Rate 17 Blood Pressure 138/80 Pulse Oximetry Oxygen Delivery Oxygen Flow Rate 05/12/25 14:00 05/12/25 16:00 05/12/25 16:00 Temperature Pulse Rate 85 83 89 Respiratory Rate 15 20 Blood Pressure 138/80 130/71 Pulse Oximetry 96 98 Oxygen Delivery Oxygen Flow Rate 05/12/25 19:51 05/12/25 20:00 05/12/25 20:00 Temperature 98.0 F Pulse Rate 74 74 Respiratory Rate 18 Blood Pressure 118/59 L Pulse Oximetry 98 99 Oxygen Delivery Nasal Cannula Oxygen Flow Rate 2 05/12/25 20:16 05/12/25 20:45 05/12/25 20:54 Temperature Pulse Rate 70 81 Respiratory Rate 20 21 H Blood Pressure Pulse Oximetry 93 Oxygen Delivery Oxygen Flow Rate 2 05/12/25 21:22 05/13/25 00:00 05/13/25 02:04 Temperature Pulse Rate 81 80 68 Respiratory Rate 21 H Blood Pressure Pulse Oximetry 96 95 Oxygen Delivery Autopap Autopap Oxygen Flow Rate 05/13/25 02:05 05/13/25 04:00 05/13/25 04:46 Temperature 97.9 F Pulse Rate 68 83 79 Respiratory Rate 18 18 Blood Pressure 117/56 L Pulse Oximetry 96 Oxygen Delivery Oxygen Flow Rate 05/13/25 08:08 05/13/25 08:08 05/13/25 08:22 Temperature Pulse Rate 85 83 Respiratory Rate 18 18 Blood Pressure Pulse Oximetry 95 Oxygen Delivery Nasal Cannula Oxygen Flow Rate 2 Intake/Output Intake/Output: Intake & Output 05/10/25 05/11/25 05/12/25 05/13/25 23:59 23:59 23:59 23:59 Intake Total 2968.9 3406.1 660 Output Total 0 Balance 2968.9 3406.1 660 Meds/Results Medications: Active Medications Generic Name Dose Route Start Last Admin Trade Name Freq PRN Reason Stop Dose Admin Acetaminophen 650 mg 05/11/25 21:37 05/13/25 02:35 Acetaminophen 325 Mg Tablet PO 650 mg Q4H PRN Administration Mild Pain (1-3) or Fever Cinacalcet 90 mg 05/12/25 09:00 05/13/25 08:36 Cinacalcet 30 Mg Tablet PO 90 mg QAM DAVID Administration Dextrose 12.5 gm 05/12/25 01:20 Dextrose 50% 25 Gm/50 Ml Syringe IV PUSH PRN PRN Hypoglycemia Protocol Finasteride 5 mg 05/12/25 09:00 05/13/25 08:36 Finasteride 5 Mg Tablet PO 5 mg QAM DAVID Administration Glucagon 1 mg 05/12/25 01:20 Glucagon For Inj 1 Mg Vial IM PRN PRN Hypoglycemia Protocol Glucose 15 gm 05/12/25 01:20 Glucose Oral Gel 15 Gm Of Glucse In 37.5 Gm Tube PO PRN PRN Hypoglycemia Protocol Dextrose 1,000 mls @ 100 mls/hr 05/12/25 01:20 Dextrose 5% 1,000 Ml IVPB PRN PRN Hypoglycemia Protocol Piperacillin Sod/Tazobactam 50 mls @ 100 mls/hr 05/12/25 08:00 05/13/25 08:36 Sod 2.25 gm/ Sodium Chloride IVPB 100 mls/hr Q8H DAVID Administration Insulin Aspart 2 - 5 units 05/12/25 17:00 05/13/25 08:32 Insulin Aspart (*Bkc) 100 Units/Ml SUB-Q Not Given TIDWM DAVID Protocol Levalbuterol HCl 0.63 mg 05/12/25 02:00 05/13/25 08:07 Levalbuterol Neb 1.25 Mg/3 Ml INHALATION 0.63 mg Q6HRT DAVID Administration Loratadine 10 mg 05/12/25 09:00 05/13/25 08:36 Loratadine 10 Mg Tablet PO 10 mg DAILY DAVID Administration Ondansetron HCl 4 mg 05/11/25 21:37 Ondansetron Inj 4 Mg/2 Ml Vial IV PUSH Q4H PRN Nausea Pantoprazole Sodium 40 mg 05/12/25 09:00 05/13/25 08:36 Pantoprazole Sodium Iv 40 Mg Vial IV PUSH 40 mg Q12HR DAVID Administration Pentoxifylline 400 mg 05/12/25 18:00 05/12/25 16:41 Pentoxifylline 400 Mg Tabcr PO 400 mg QPM DAVID Administration Sevelamer Carbonate 0.8 gm 05/12/25 08:00 05/13/25 08:36 Sevelamer Carbonate 0.8 Gm Oral Powder Packet PO 0.8 gm TIDWM DAVID Administration Sodium Chloride 10 ml 05/12/25 14:00 05/13/25 08:32 Central Line Flush IV PUSH 10 ml Q8HR DAVID Administration Sodium Chloride 20 ml 05/12/25 06:33 Central Line Flush IV PUSH PRN PRN after blood draws Tamsulosin HCl 0.4 mg 05/12/25 21:00 05/12/25 21:06 Tamsulosin Hcl 0.4 Mg Capsule PO 0.4 mg QHS DAVID Administration Umeclidinium [place] 1 puff 05/12/25 08:00 05/13/25 08:21 Umeclidinium [place] 62.5 Mcg Ellipta INHALATION 1 puff DAILYRT DAVID Administration Radiology Results: ITS Impressions Chest X-Ray 05/11/25 19:41 IMPRESSION: No acute cardiopulmonary process. Abdomen/Pelvis CTA 05/11/25 20:52 IMPRESSION: Mild atelectasis/edema in the lung bases. Small bilateral pleural effusions. Hepatomegaly with mild periportal edema and mild perihepatic fluid. Pericholecystic fluid with fluid/inflammation in the min hepatis and surround ing the extrahepatic bile ducts. Consider hepatitis, cholecystitis, and cholangitis in the differential. Bladder wall thickening may be secondary to cystitis or chronic outlet obstruction from prostatomegaly. Extensive atherosclerotic disease. Labs Labs: Laboratory Results - last 24 hr 05/12/25 05/12/25 05/12/25 11:05 16:32 19:49 WBC RBC Hgb Hct MCV MCH MCHC RDW Plt Count MPV Immature Gran % (Auto) Neut % (Auto) Lymph % (Auto) [place] % (Auto) Eos % (Auto) Baso % (Auto) Lymph # (Auto) [place] # (Auto) Eos # (Auto) Baso # (Auto) Abs Immat Gran (auto) Absolute Neuts (auto) Absolute Nucleated RBC Nucleated RBC % Sodium Potassium Chloride Carbon Dioxide Anion Gap BUN Creatinine Estim Creat Clear Calc Estimated GFR Glucose POC Capillary Glucose 93 108 H 339 H Calcium Phosphorus Magnesium Total Bilirubin AST ALT Alkaline Phosphatase Total Protein Albumin Lipase 05/13/25 05/13/25 06:14 08:13 WBC 7.6 RBC 3.24 L Hgb 8.7 L Hct 28.9 L MCV 89.2 MCH 26.9 MCHC 30.1 L RDW 20.7 H Plt Count 278 MPV 10.2 Immature Gran % (Auto) 0.8 H Neut % (Auto) 79.0 H Lymph % (Auto) 7.7 L [place] % (Auto) 10.4 H Eos % (Auto) 0.9 Baso % (Auto) 1.2 Lymph # (Auto) 0.58 L [place] # (Auto) 0.8 H Eos # (Auto) 0.1 Baso # (Auto) 0.1 Abs Immat Gran (auto) 0.06 H Absolute Neuts (auto) 6.0 Absolute Nucleated RBC 0.020 H Nucleated RBC % 0.3 H Sodium 135 L Potassium 4.1 Chloride 99 Carbon Dioxide 29 Anion Gap 7 BUN 38 H D Creatinine 3.71 H Estim Creat Clear Calc 14 Estimated GFR 16 L Glucose 128 H POC Capillary Glucose 127 H Calcium 7.9 L Phosphorus 3.2 Magnesium 2.0 Total Bilirubin 0.4 AST 96 H ALT 225 H Alkaline Phosphatase 71 Total Protein 5.5 L Albumin 3.0 L Lipase 123
--- NOTE | 2025-05-13 09:54 | PC.NURSE ---
Patient to NM per bed.
--- NOTE | 2025-05-13 11:03 | P.PNNP_ITS ---
Progress Note: A&P Assessment and Plan (1) End stage renal disease: Code(s): N18.6 - End stage renal disease Status: Chronic Assessment and Plan: * The patient has end-stage renal disease. * This is most likely related to his diabetes hypertension and vascular disease. * He dialyzes 3 times a week at [facility]. * Will do HD tomorrow * continue T/T/S outpatient dialysis schedule * Volume status seems pretty good. very little swelling * Potassium is good today (2) Atrial fibrillation: Code(s): I48.91 - Unspecified atrial fibrillation Status: Chronic Assessment and Plan: * he is in AFib * his rate is controlled, HR 70 to 90s * he is off Eliquis due to GI bleed * see below (3) Hypercalcemia: Code(s): E83.52 - Hypercalcemia Status: Chronic Assessment and Plan: * not an issue now (4) Anemia: Code(s): D64.9 - Anemia, unspecified Status: Chronic Assessment and Plan: * due to ESRD * Epogen with HD * Hb 8.7 today. stable after transfusions (5) Essential (primary) hypertension: Code(s): I10 - Essential (primary) hypertension Status: Chronic Assessment and Plan: * Systolic was very low. Now it is okay. * Hold antihypertensives until his blood pressure starts to rise * so far bp is good (6) IDDM (insulin dependent diabetes mellitus): Status: Chronic Assessment and Plan: * follow accu-cheks * glycemic control per hospitalist (7) Anemia requiring transfusions: Code(s): D64.9 - Anemia, unspecified Status: Acute Assessment and Plan: GI bleed probably from AVMs. back on po pantoprazole per GI no new interventions. Plan CM talked with patient. he wants to be a DNR but do what we are doing he is contemplating Hospice. I offered support and answered questions. Subjective Date/time seen: 05/13/25 11:03 Interval history: Patient feels okay. Justhad injection for bone scan No chest pain or shortness of breath. Eating okay. Review of Systems Cardiovascular: Cardiovascular: Reports no additional cardiovascular complaints Respiratory: Respiratory: Reports no additional respiratory complaints Gastrointestinal: Gastrointestinal: Reports no additional gastrointestinal complaints Genitourinary: Genitourinary: Reports no additional male genitourinary complaints Exam Narrative: WDWN in NAD skin no rash head ncat lungs clear cor reg no rub abd BS+ nontender and soft ext no edema. Objective Data Vital Signs Vital Signs: Vital Signs - 24 hr 05/12/25 11:15 05/12/25 11:30 05/12/25 11:45 Temperature Pulse Rate 79 76 79 Respiratory Rate Blood Pressure 130/64 130/64 127/60 Pulse Oximetry Oxygen Delivery Oxygen Flow Rate 05/12/25 12:00 05/12/25 12:00 05/12/25 12:00 Temperature Pulse Rate 85 84 Respiratory Rate Blood Pressure 118/70 128/69 Pulse Oximetry 98 Oxygen Delivery Nasal Cannula Oxygen Flow Rate 2 05/12/25 12:00 05/12/25 12:00 05/12/25 12:15 Temperature 97.9 F Pulse Rate 84 76 84 Respiratory Rate 20 Blood Pressure 128/69 128/69 Pulse Oximetry 98 Oxygen Delivery Oxygen Flow Rate 05/12/25 12:30 05/12/25 12:45 05/12/25 13:39 Temperature Pulse Rate 81 82 85 Respiratory Rate 20 Blood Pressure 138/64 136/116 H Pulse Oximetry Oxygen Delivery Oxygen Flow Rate 05/12/25 13:46 05/12/25 14:00 05/12/25 14:00 Temperature Pulse Rate 84 85 85 Respiratory Rate 17 Blood Pressure 138/80 Pulse Oximetry Oxygen Delivery Oxygen Flow Rate 05/12/25 14:00 05/12/25 16:00 05/12/25 16:00 Temperature Pulse Rate 85 83 89 Respiratory Rate 15 20 Blood Pressure 138/80 130/71 Pulse Oximetry 96 98 Oxygen Delivery Oxygen Flow Rate 05/12/25 19:51 05/12/25 20:00 05/12/25 20:00 Temperature 98.0 F Pulse Rate 74 74 Respiratory Rate 18 Blood Pressure 118/59 L Pulse Oximetry 98 99 Oxygen Delivery Nasal Cannula Oxygen Flow Rate 2 05/12/25 20:16 05/12/25 20:45 05/12/25 20:54 Temperature Pulse Rate 70 81 Respiratory Rate 20 21 H Blood Pressure Pulse Oximetry 93 Oxygen Delivery Oxygen Flow Rate 2 05/12/25 21:22 05/13/25 00:00 05/13/25 02:04 Temperature Pulse Rate 81 80 68 Respiratory Rate 21 H Blood Pressure Pulse Oximetry 96 95 Oxygen Delivery Autopap Autopap Oxygen Flow Rate 05/13/25 02:05 05/13/25 04:00 05/13/25 04:46 Temperature 97.9 F Pulse Rate 68 83 79 Respiratory Rate 18 18 Blood Pressure 117/56 L Pulse Oximetry 96 Oxygen Delivery Oxygen Flow Rate 05/13/25 08:08 05/13/25 08:08 05/13/25 08:22 Temperature Pulse Rate 85 83 Respiratory Rate 18 18 Blood Pressure Pulse Oximetry 95 Oxygen Delivery Nasal Cannula Oxygen Flow Rate 2 05/13/25 08:40 Temperature Pulse Rate Respiratory Rate Blood Pressure Pulse Oximetry 95 Oxygen Delivery Nasal Cannula Oxygen Flow Rate 2 Intake/Output Intake/Output: Intake & Output 05/10/25 05/11/25 05/12/25 05/13/25 23:59 23:59 23:59 23:59 Intake Total 2968.9 3406.1 660 Output Total 0 Balance 2968.9 3406.1 660 Meds/Results Medications: Active Medications Generic Name Dose Route Start Last Admin Trade Name Freq PRN Reason Stop Dose Admin Acetaminophen 650 mg 05/11/25 21:37 05/13/25 02:35 Acetaminophen 325 Mg Tablet PO 650 mg Q4H PRN Administration Mild Pain (1-3) or Fever Cinacalcet 90 mg 05/12/25 09:00 05/13/25 08:36 Cinacalcet 30 Mg Tablet PO 90 mg QAM DAVID Administration Dextrose 12.5 gm 05/12/25 01:20 Dextrose 50% 25 Gm/50 Ml Syringe IV PUSH PRN PRN Hypoglycemia Protocol Finasteride 5 mg 05/12/25 09:00 05/13/25 08:36 Finasteride 5 Mg Tablet PO 5 mg QAM DAVID Administration Glucagon 1 mg 05/12/25 01:20 Glucagon For Inj 1 Mg Vial IM PRN PRN Hypoglycemia Protocol Glucose 15 gm 05/12/25 01:20 Glucose Oral Gel 15 Gm Of Glucse In 37.5 Gm Tube PO PRN PRN Hypoglycemia Protocol Dextrose 1,000 mls @ 100 mls/hr 05/12/25 01:20 Dextrose 5% 1,000 Ml IVPB PRN PRN Hypoglycemia Protocol Piperacillin Sod/Tazobactam 50 mls @ 100 mls/hr 05/12/25 08:00 05/13/25 08:36 Sod 2.25 gm/ Sodium Chloride IVPB 100 mls/hr Q8H DAVID Administration Insulin Aspart 2 - 5 units 05/12/25 17:00 05/13/25 08:32 Insulin Aspart (*Bkc) 100 Units/Ml SUB-Q Not Given TIDWM DAVID Protocol Levalbuterol HCl 0.63 mg 05/12/25 02:00 05/13/25 08:07 Levalbuterol Neb 1.25 Mg/3 Ml INHALATION 0.63 mg Q6HRT DAVID Administration Loratadine 10 mg 05/12/25 09:00 05/13/25 08:36 Loratadine 10 Mg Tablet PO 10 mg DAILY DAVID Administration Ondansetron HCl 4 mg 05/11/25 21:37 Ondansetron Inj 4 Mg/2 Ml Vial IV PUSH Q4H PRN Nausea Pantoprazole Sodium 40 mg 05/12/25 09:00 05/13/25 08:36 Pantoprazole Sodium Iv 40 Mg Vial IV PUSH 40 mg Q12HR DAVID Administration Pentoxifylline 400 mg 05/12/25 18:00 05/12/25 16:41 Pentoxifylline 400 Mg Tabcr PO 400 mg QPM DAVID Administration Sevelamer Carbonate 0.8 gm 05/12/25 08:00 05/13/25 08:36 Sevelamer Carbonate 0.8 Gm Oral Powder Packet PO 0.8 gm TIDWM DAVID Administration Sodium Chloride 10 ml 05/12/25 14:00 05/13/25 08:32 Central Line Flush IV PUSH 10 ml Q8HR DAVID Administration Sodium Chloride 20 ml 05/12/25 06:33 Central Line Flush IV PUSH PRN PRN after blood draws Tamsulosin HCl 0.4 mg 05/12/25 21:00 05/12/25 21:06 Tamsulosin Hcl 0.4 Mg Capsule PO 0.4 mg QHS DAVID Administration Umeclidinium [place] 1 puff 05/12/25 08:00 05/13/25 08:21 Umeclidinium [place] 62.5 Mcg Ellipta INHALATION 1 puff DAILYRT DAVID Administration Radiology Results: ITS Impressions Chest X-Ray 05/11/25 19:41 IMPRESSION: No acute cardiopulmonary process. Abdomen/Pelvis CTA 05/11/25 20:52 IMPRESSION: Mild atelectasis/edema in the lung bases. Small bilateral pleural effusions. Hepatomegaly with mild periportal edema and mild perihepatic fluid. Pericholecystic fluid with fluid/inflammation in the min hepatis and surrounding the extrahepatic bile ducts. Consider hepatitis, cholecystitis, and cholangitis in the differential. Bladder wall thickening may be secondary to cystitis or chronic outlet obstruction from prostatomegaly. Extensive atherosclerotic disease. Labs Labs: Laboratory Results - last 24 hr 05/12/25 05/12/25 05/12/25 11:05 16:32 19:49 WBC RBC Hgb Hct MCV MCH MCHC RDW Plt Count MPV Immature Gran % (Auto) Neut % (Auto) Lymph % (Auto) [place] % (Auto) Eos % (Auto) Baso % (Auto) Lymph # (Auto) [place] # (Auto) Eos # (Auto) Baso # (Auto) Abs Immat Gran (auto) Absolute Neuts (auto) Absolute Nucleated RBC Nucleated RBC % Sodium Potassium Chloride Carbon Dioxide Anion Gap BUN Creatinine Estim Creat Clear Calc Estimated GFR Glucose POC Capillary Glucose 93 108 H 339 H Calcium Phosphorus Magnesium Total Bilirubin AST ALT Alkaline Phosphatase Total Protein Albumin Lipase 05/13/25 05/13/25 06:14 08:13 WBC 7.6 RBC 3.24 L Hgb 8.7 L Hct 28.9 L MCV 89.2 MCH 26.9 MCHC 30.1 L RDW 20.7 H Plt Count 278 MPV 10.2 Immature Gran % (Auto) 0.8 H Neut % (Auto) 79.0 H Lymph % (Auto) 7.7 L [place] % (Auto) 10.4 H Eos % (Auto) 0.9 Baso % (Auto) 1.2 Lymph # (Auto) 0.58 L [place] # (Auto) 0.8 H Eos # (Auto) 0.1 Baso # (Auto) 0.1 Abs Immat Gran (auto) 0.06 H Absolute Neuts (auto) 6.0 Absolute Nucleated RBC 0.020 H Nucleated RBC % 0.3 H Sodium 135 L Potassium 4.1 Chloride 99 Carbon Dioxide 29 Anion Gap 7 BUN 38 H D Creatinine 3.71 H Estim Creat Clear Calc 14 Estimated GFR 16 L Glucose 128 H POC Capillary Glucose 127 H Calcium 7.9 L Phosphorus 3.2 Magnesium 2.0 Total Bilirubin 0.4 AST 96 H ALT 225 H Alkaline Phosphatase 71 Total Protein 5.5 L Albumin 3.0 L Lipase 123
--- NOTE | 2025-05-13 15:50 | PM.IMPN ---
Progress Note: A&P Assessment and Plan (1) GI (gastrointestinal bleed): Qualifiers: GI bleed type/associated pathology: melena Qualified Code(s): K92.1 - Melena Code(s): K92.2 - Gastrointestinal hemorrhage, unspecified Status: Acute (2) Chronic anticoagulation: Code(s): Z79.01 - terminal operations supervisor (current) use of anticoagulants Status: Acute (3) AVM (arteriovenous malformation) of colon, acquired with hemorrhage: Code(s): K55.21 - Angiodysplasia of colon with hemorrhage Status: Acute (4) Cholelithiasis: Qualifiers: Cholelithiasis location: gallbladder Cholecystitis presence: with cholecystitis Cholecystitis acuity: acute and chronic Biliary obstruction: without biliary obstruction Qualified Code(s): K80.12 - Calculus of gallbladder with acute and chronic cholecystitis without obstruction Code(s): K80.20 - Calculus of gallbladder without cholecystitis without obstruction Status: Acute (5) Transaminitis: Code(s): R74.01 - Elevation of levels of liver transaminase levels Status: Acute (6) Hematoma of right lower leg: Code(s): S80.11XA - Contusion of right lower leg, initial encounter Status: Acute (7) ESRD on dialysis: Code(s): N18.6 - End stage renal disease; Z99.2 - Dependence on renal dialysis Status: Acute (8) Acute hyperkalemia: Code(s): E87.5 - Hyperkalemia Status: Acute (9) Insulin dependent type 2 diabetes mellitus: Onset Date: ~2009 Code(s): E11.9 - Type 2 diabetes mellitus without complications; Z79.4 - terminal operations supervisor (current) use of insulin Status: Acute (10) Unstageable pressure ulcer of right heel: Code(s): L89.610 - Pressure ulcer of right heel, unstageable Status: Acute Plan The patient presents to the ER hypotensive. Hypotension is likely due to combination of GI bleed and possible sepsis due to underlying infection. Patient did receive 1 L fluid bolus in the ER but further fluid boluses were not continued given the patient's history of end-stage renal disease and history of difficulties with fluid overload in the past. Patient did have significant anemia with large melenic stool with recent history of cecal AVM be on chronic anticoagulation with Eliquis. Eliquis has been held. Patient's INR was elevated to 2.1 which is unusual for the patient. He has been on Eliquis for a while and usually does not have an elevated INR on prior labs. Subsequently DIC panel was obtained which demonstrated and mildly elevated D-dimer but normal fibrinogen making DIC less likely. Patient is currently receiving 2/3 units of packed red blood cells at the time my evaluation. Will transfuse 3rd unit and then repeat labs for a.m.. With the initiation of the 3rd unit of blood the patient blood pressures have stabilized and Levophed has been on hold since 3rd unit of blood has been started. Will avoid anti-platelet medications and thrombolytics. Patient has been started on IV Protonix. If hemoglobin has not stabilized after 30 unit blood transfusion or patient develops recurrent hypotension the patient may need Kcentra. Will consult Gastroenterology. Patient is NPO. The patient's CT also demonstrated edema and inflammation around the gallbladder but patient does not have any reproducible pain on palpation to the right upper quadrant. The he does have increased transaminitis compared to prior discharge values. He was started on empiric antibiotic therapy for possible cholecystitis or ascending cholangitis with Zosyn. General surgery has been consulted. Patient also has a large hematoma on the right anterior griffin that has overlying eschar scab formation. But has a large area of surrounding erythema. A area was examined with ultrasound with visualized large area fluid collection noted beneath. Patient could also have an infected hematoma at this site resulting infection. Will ask General surgery's opinion on this as well. Patient does have end-stage renal disease and receives hemodialysis Sunday. He was mildly hyperkalemic in the ER. The no evidence of peaked T-waves on telemetry and no evidence of acute dysrhythmia decompensation. Will repeat electrolyte panel in a.m.. Patient does have diabetes but is currently euglycemic. Will hold home insulin and patient has been placed on low-dose insulin correction for NPO patient with Accu-Cheks q.6 hours and hypoglycemia protocol as needed. Wound Care has been consulted for the patient's left heel decubitus ulcer. Pressure relieving boots have been ordered. Patient's home antihypertensives, aspirin and Eliquis on hold Given the patient's metabolic encephalopathy is home gabapentin, melatonin, and tramadol on hold. Patient has been admitted to the ICU and correctional guard has been consulted. Patient is 79 y/o male a resident of [place], with history of ESRD on HD and Atrial fibrillation on chronic anticoagulation with Eliquis, presented to ER with lethargy and abnormal lab low Hgb from the [place], upon arrival patient hgb 5.2. patient was transfused, and his hgb improved, Also patient has history of AVM on previous colonoscopy, patient was seen by GI and recommended since patient had colonoscopy recently suggesting capsule endoscopy for further evaluate, patient is clinically stable, Ct scan of abdomen was concerning of cholecystitis however patient does not any abdominal pain, seen surgery service does not recommend any surgical intervention, will transfer patient to medical floor since he is clinically stable will monitor. today patient remains clinically stable, his hgb and potassium levels are close to normal seen by his contracting executive and his volume status stable will have HD tomorrow, patient has history of hypercalcemia, the contracting executive ordered bone scan to evaluate any metastatic calcium lesions, results are pending. Today patient placed himself on DNR. . Subjective Date/time seen: 05/13/25 15:50 Interval history: Sent from [facility] for abnormal labs H&P-Narrative: 79-year-old unfortunate male with a past medical history end-stage renal disease on hemodialysis Sunday, insulin-dependent diabetes mellitus, essential hypertension, paroxysmal atrial fibrillation on chronic anticoagulation with Eliquis, peripheral artery disease, obstructive sleep apnea, COPD and a recent hospitalization for GI bleed due to cecal AVM presented to the ER from [facility] via EMS due to low hemoglobin on outpatient labs. Patient is somnolent difficult to arouse and as such majority of information was provided by ER physician report, EMS report and review of past medical records. Patient had reported lower abdominal pain and feeling weak to ER staff. He was alert orient x2 on arrival to the ER but was only alert oriented to his name at the time of my evaluation. He would not stay awake long enough to answer any further questions despite multiple attempts. Patient had denied any nausea vomiting back pain or chest discomfort ER staff. He went to dialysis on Sunday without any issues. Patient had not had any reported melena rectal bleeding according to the patient or [facility] report. However, just before the patient was transferred up to the ICU he had a large melenic stool. 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 He had a 2nd admission 04/23/2025 through 04/28/2025 at which time he had some transient abdominal pain and elevated AST and ALT. The patient's AST and ALT trended down and abdominal pain resolved with conservative management. In the ER labs demonstrated severe anemia with hemoglobin of 5. His blood pressures in the ER ranged from the mid 70s to low 90 range. A right femoral central line was placed by ER staff and the patient was started on Levophed and 3 units of blood were ordered for transfusion. CTA of the abdomen pelvis demonstrated hepatomegaly with mild periportal edema and mild Yoon hepatic fluid pericholecystic fluid with inflammation in the min hepatis and surrounding extrahepatic bile ducts could be consistent with hepatitis cholecystitis and cholangitis, bladder wall thickening possibly secondary to cystitis versus chronic outlet obstruction and mild atelectasis or edema in the bases and small bilateral pleural effusion. Patient was given a dose of Zosyn and started on vancomycin with pharmacy to dose. On exam the patient was noted to have a large area of eschar to the anterior right griffin with surrounding erythema. The patient had told the nurse it was due to recent fall but was unable to provide me with any details. He did cry out in pain with any palpation of the area. He has been afebrile since presentation. Patient is 79 y/o male a resident of [place], with history of ESRD on HD and Atrial fibrillation on chronic anticoagulation with Eliquis, presented to ER with lethargy and abnormal lab low Hgb from the [place], upon arrival patient hgb 5.2. patient was transfused, and his hgb improved, Also patient has history of AVM on previous colonoscopy, patient was seen by GI and recommended since patient had colonoscopy recently suggesting capsule endoscopy for further evaluate, patient is clinically stable, Ct scan of abdomen was concerning of cholecystitis however patient does not any abdominal pain, seen surgery service does not recommend any surgical intervention, will transfer patient to medical floor since he is clinically stable will monitor. today patient remains clinically stable, his hgb and potassium levels are close to normal seen by his contracting executive and his volume status stable will have HD tomorrow, patient has history of hypercalcemia, the contracting executive ordered bone scan to evaluate any metastatic calcium lesions, results are pending. Today patient placed himself on DNR. Review of Systems Review of Systems: Unobtainable due to patient's encephalopathy All systems reviewed & are unremarkable except as noted in HPI and below Exam Narrative: Patient is comfortable, NAD HEENT: eyes are clear and none icteric LUNGS:CTA HEART: RR S1S2 ABD: BS+, Soft and nontender Lower extremities: no edema SKIN: nonjaundiced Neuro: grossly intact. Objective Data Vital Signs Vital Signs: Vital Signs - 24 hr 05/12/25 16:00 05/12/25 16:00 05/12/25 19:51 Temperature 36.7 C Pulse Rate 83 89 74 Respiratory Rate 20 18 Blood Pressure 130/71 118/59 L Pulse Oximetry 98 98 Oxygen Delivery Oxygen Flow Rate 05/12/25 20:00 05/12/25 20:00 05/12/25 20:16 Temperature Pulse Rate 74 Respiratory Rate Blood Pressure Pulse Oximetry 99 93 Oxygen Delivery Nasal Cannula Oxygen Flow Rate 2 2 05/12/25 20:45 05/12/25 20:54 05/12/25 21:22 Temperature Pulse Rate 70 81 81 Respiratory Rate 20 21 H 21 H Blood Pressure Pulse Oximetry 96 Oxygen Delivery Autopap Oxygen Flow Rate 05/13/25 00:00 05/13/25 02:04 05/13/25 02:05 Temperature Pulse Rate 80 68 68 Respiratory Rate 18 Blood Pressure Pulse Oximetry 95 Oxygen Delivery Autopap Oxygen Flow Rate 05/13/25 04:00 05/13/25 04:46 05/13/25 08:04 Temperature 36.6 C Pulse Rate 83 79 85 Respiratory Rate 18 Blood Pressure 117/56 L Pulse Oximetry 96 Oxygen Delivery Oxygen Flow Rate 05/13/25 08:08 05/13/25 08:08 05/13/25 08:22 Temperature Pulse Rate 85 83 Respiratory Rate 18 18 Blood Pressure Pulse Oximetry 95 Oxygen Delivery Nasal Cannula Oxygen Flow Rate 2 05/13/25 08:40 05/13/25 12:05 05/13/25 14:00 Temperature 36.6 C Pulse Rate 93 74 Respiratory Rate 18 Blood Pressure 120/58 L Pulse Oximetry 95 96 Oxygen Delivery Nasal Cannula Oxygen Flow Rate 2 05/13/25 15:41 05/13/25 15:49 Temperature Pulse Rate 80 85 Respiratory Rate 18 18 Blood Pressure Pulse Oximetry Oxygen Delivery Oxygen Flow Rate Intake/Output Intake/Output: Intake & Output 07/2005/11/25 05/12/25 05/13/25 23:59 23:59 23:59 23:59 Intake Total 2968.9 3406.1 830 Output Total 0 Balance 2968.9 3406.1 830 Meds/Results Medications: Active Medications Generic Name Dose Route Start Last Admin Trade Name Freq PRN Reason Stop Dose Admin Acetaminophen 650 mg 05/11/25 21:37 05/13/25 02:35 Acetaminophen 325 Mg Tablet PO 650 mg Q4H PRN Administration Mild Pain (1-3) or Fever Cinacalcet 90 mg 05/12/25 09:00 05/13/25 08:36 Cinacalcet 30 Mg Tablet PO 90 mg QAM DAVID Administration Dextrose 12.5 gm 05/12/25 01:20 Dextrose 50% 25 Gm/50 Ml Syringe IV PUSH PRN PRN Hypoglycemia Protocol Finasteride 5 mg 05/12/25 09:00 05/13/25 08:36 Finasteride 5 Mg Tablet PO 5 mg QAM DAVID Administration Glucagon 1 mg 05/12/25 01:20 Glucagon For Inj 1 Mg Vial IM PRN PRN Hypoglycemia Protocol Glucose 15 gm 05/12/25 01:20 Glucose Oral Gel 15 Gm Of Glucse In 37.5 Gm Tube PO PRN PRN Hypoglycemia Protocol Dextrose 1,000 mls @ 100 mls/hr 05/12/25 01:20 Dextrose 5% 1,000 Ml IVPB PRN PRN Hypoglycemia Protocol Piperacillin Sod/Tazobactam 50 mls @ 100 mls/hr 05/12/25 08:00 05/13/25 15:34 Sod 2.25 gm/ Sodium Chloride IVPB 100 mls/hr Q8H DAVID Administration Albumin Human 50 mls @ 999 mls/hr 05/13/25 13:10 Albutein IVPB 05/14/25 13:09 Q10M PRN HYPOTENSION Insulin Aspart 2 - 5 units 05/12/25 17:00 05/13/25 12:16 Insulin Aspart (*Bkc) 100 Units/Ml SUB-Q Not Given TIDWM DAVID Protocol Levalbuterol HCl 0.63 mg 05/12/25 02:00 05/13/25 15:40 Levalbuterol Neb 1.25 Mg/3 Ml INHALATION 0.63 mg Q6HRT DAVID Administration Loratadine 10 mg 05/12/25 09:00 05/13/25 08:36 Loratadine 10 Mg Tablet PO 10 mg DAILY DAVID Administration Ondansetron HCl 4 mg 05/11/25 21:37 Ondansetron Inj 4 Mg/2 Ml Vial IV PUSH Q4H PRN Nausea Pantoprazole Sodium 40 mg 05/12/25 09:00 05/13/25 08:36 Pantoprazole Sodium Iv 40 Mg Vial IV PUSH 40 mg Q12HR DAVID Administration Pentoxifylline 400 mg 05/12/25 18:00 05/12/25 16:41 Pentoxifylline 400 Mg Tabcr PO 400 mg QPM DAVID Administration Sevelamer Carbonate 0.8 gm 05/12/25 08:00 05/13/25 12:16 Sevelamer Carbonate 0.8 Gm Oral Powder Packet PO 0.8 gm TIDWM DAVID Administration Sodium Chloride 10 ml 05/12/25 14:00 05/13/25 15:25 Central Line Flush IV PUSH 10 ml Q8HR DAVID Administration Sodium Chloride 20 ml 05/12/25 06:33 Central Line Flush IV PUSH PRN PRN after blood draws Tamsulosin HCl 0.4 mg 05/12/25 21:00 05/12/25 21:06 Tamsulosin Hcl 0.4 Mg Capsule PO 0.4 mg QHS DAVID Administration Umeclidinium [place] 1 puff 05/12/25 08:00 05/13/25 08:21 Umeclidinium [place] 62.5 Mcg Ellipta INHALATION 1 puff DAILYRT DAVID Administration Radiology Results: ITS Impressions Chest X-Ray 05/11/25 19:41 IMPRESSION: No acute cardiopulmonary process. Abdomen/Pelvis CTA 05/11/25 20:52 IMPRESSION: Mild atelectasis/edema in the lung bases. Small bilateral pleural effusions. Hepatomegaly with mild periportal edema and mild perihepatic fluid. Pericholecystic fluid with fluid/inflammation in the min hepatis and surrounding the extrahepatic bile ducts. Consider hepatitis, cholecystitis, and cholangitis in the differential. Bladder wall thickening may be secondary to cystitis or chronic outlet obstruction from prostatomegaly. Extensive atherosclerotic disease. Labs Labs: Laboratory Results - last 24 hr 05/12/25 05/12/25 05/13/25 16:32 19:49 06:14 WBC 7.6 RBC 3.24 L Hgb 8.7 L Hct 28.9 L MCV 89.2 MCH 26.9 MCHC 30.1 L RDW 20.7 H Plt Count 278 MPV 10.2 Immature Gran % (Auto) 0.8 H Neut % (Auto) 79.0 H Lymph % (Auto) 7.7 L [place] % (Auto) 10.4 H Eos % (Auto) 0.9 Baso % (Auto) 1.2 Lymph # (Auto) 0.58 L [place] # (Auto) 0.8 H Eos # (Auto) 0.1 Baso # (Auto) 0.1 Abs Immat Gran (auto) 0.06 H Absolute Neuts (auto) 6.0 Absolute Nucleated RBC 0.020 H Nucleated RBC % 0.3 H Sodium 135 L Potassium 4.1 Chloride 99 Carbon Dioxide 29 Anion Gap 7 BUN 38 H D Creatinine 3.71 H Estim Creat Clear Calc 14 Estimated GFR 16 L Glucose 128 H POC Capillary Glucose 108 H 339 H Calcium 7.9 L Phosphorus 3.2 Magnesium 2.0 Total Bilirubin 0.4 AST 96 H ALT 225 H Alkaline Phosphatase 71 Total Protein 5.5 L Albumin 3.0 L Lipase 123 05/13/25 05/13/25 08:13 11:46 WBC RBC Hgb Hct MCV MCH MCHC RDW Plt Count MPV Immature Gran % (Auto) Neut % (Auto) Lymph % (Auto) [place] % (Auto) Eos % (Auto) Baso % (Auto) Lymph # (Auto) [place] # (Auto) Eos # (Auto) Baso # (Auto) Abs Immat Gran (auto) Absolute Neuts (auto) Absolute Nucleated RBC Nucleated RBC % Sodium Potassium Chloride Carbon Dioxide Anion Gap BUN Creatinine Estim Creat Clear Calc Estimated GFR Glucose POC Capillary Glucose 127 H 168 H Calcium Phosphorus Magnesium Total Bilirubin AST ALT Alkaline Phosphatase Total Protein Albumin Lipase
[2025-05-13] MEDS: PENTOXIFYLLINE 400 MG TABCR PO (17:38)
[2025-05-13] MEDS: TAMSULOSIN HCL 0.4 MG CAPSULE PO (21:11)
[2025-05-14] VITALS (36 sets, daily range): BP systolic 124–153; BP diastolic 49–84; PULSE 74–100; RESP 16–20; TEMP 36.6–37; O2SAT 92–100
[2025-05-14] MEDS: PIPERACILLIN/TAZOBACTAM SOD 2.25 GM in SODIUM CHLORIDE 0.9% IV 50 ML 100 ML IVPB ×2 (01:08→08:30)
[2025-05-14 06:38] LABS: Hematocrit 29.1 % (42.0-52.0); Hemoglobin 8.8 g/dL (14.0-18.0); Mean Corpuscular HGB Conc 30.2 g/dl (32-36); Mean Corpuscular Hemoglobin 27.2 pg (26-34); Mean Corpuscular Volume 89.8 fl (80-100); Platelet Count Result 280 k/mm3 (150-375); Red Blood Count 3.24 M/mm3 (4.6-6.20); White Blood Count 6.3 K/mm3 (4.5-10.0)
[2025-05-14 07:05] LABS: Alanine Aminotransferase 164 U/L (6-50); Albumin Level 2.9 g/dL (3.5-5.1); Alkaline Phosphatase 62 U/L (38-126); Anion Gap 8 mmol/L (4-12); Aspartate Amino Transferase 53 U/L (17-59); Bilirubin,Total 0.4 mg/dL (0.2-1.3); Blood Urea Nitrogen 45 mg/dL (9-20); Calcium 7.9 mg/dL (8.4-10.2); Carbon Dioxide 27 mmol/L (22-30); Chloride 97 mmol/L (98-107); Estimated CRCL calculation 11 ml/min; Estimated Glomerular Filt Rate 11; Glucose 122 mg/dL (65-110); Magnesium 2.0 mg/dL (1.6-2.3); Potassium 4.2 mmol/L (3.4-5.0); Sodium 132 mmol/L (137-145); Total Protein 5.4 g/dL (6.3-8.2)
[2025-05-14] MEDS: SEVELAMER CARBONATE 0.8 GM ORAL POWDER PACKET PO ×3 (08:33→18:18)
[2025-05-14] MEDS: UMECLIDINIUM BROMIDE 62.5 MCG ELLIPTA 1 PUFF INHALATION (08:46)
--- NOTE | 2025-05-14 08:46 | P.PNNP_ITS ---
Progress Note: A&P Assessment and Plan (1) End stage renal disease: Code(s): N18.6 - End stage renal disease Status: Chronic Assessment and Plan: * The patient has end-stage renal disease. * This is most likely related to his diabetes hypertension and vascular disease. * He dialyzes 3 times a week at [facility]. * He is due for dialysis today * continue T/T/S outpatient dialysis schedule * Volume status seems pretty good. very little swelling * Potassium is good today (2) Atrial fibrillation: Code(s): I48.91 - Unspecified atrial fibrillation Status: Chronic Assessment and Plan: * he is in AFib * his rate is controlled, HR 70 to 90s * he is off Eliquis due to GI bleed * see below (3) Hypercalcemia: Code(s): E83.52 - Hypercalcemia Status: Chronic Assessment and Plan: * not an issue now (4) Anemia: Code(s): D64.9 - Anemia, unspecified Status: Chronic Assessment and Plan: * due to ESRD and recently due to blood loss anemia * Epogen with HD * Hb 8.9 today. stable after transfusions (5) Essential (primary) hypertension: Code(s): I10 - Essential (primary) hypertension Status: Chronic Assessment and Plan: * Systolic was very low. Now it is okay. * Hold antihypertensives until his blood pressure starts to rise * so far bp is good. Today it is 129/40 (6) IDDM (insulin dependent diabetes mellitus): Status: Chronic Assessment and Plan: * follow accu-cheks * glycemic control per hospitalist (7) Anemia requiring transfusions: Code(s): D64.9 - Anemia, unspecified Status: Acute Assessment and Plan: GI bleed probably from AVMs. To change back to po pantoprazole per GI no new interventions. Plan CM talked with patient. he wants to be a DNR but do what we are doing he is contemplating Hospice. Subjective Date/time seen: 05/14/25 08:46 Interval history: Patient feels okay. He has less pain today. No more bloody or black bowel movements Exam Narrative: WDWN in NAD skin no rash or subQ nodules head ncat lungs clear cor irreg irreg no rub abd BS+ nontender and soft ext no edema or cyanosis Objective Data Vital Signs Vital Signs: Vital Signs - 24 hr 05/13/25 12:05 05/13/25 14:00 05/13/25 15:41 Temperature 97.9 F Pulse Rate 93 74 80 Respiratory Rate 18 18 Blood Pressure 120/58 L Pulse Oximetry 96 Oxygen Delivery Oxygen Flow Rate 05/13/25 15:49 05/13/25 16:00 05/13/25 16:04 Temperature 98.2 F Pulse Rate 85 85 84 Respiratory Rate 18 18 Blood Pressure 122/68 Pulse Oximetry 96 Oxygen Delivery Oxygen Flow Rate 05/13/25 19:56 05/13/25 19:57 05/13/25 20:00 Temperature Pulse Rate 90 90 Respiratory Rate 18 Blood Pressure Pulse Oximetry 98 99 Oxygen Delivery Nasal Cannula Nasal Cannula Oxygen Flow Rate 2 2 05/13/25 20:00 05/13/25 20:05 05/13/25 22:28 Temperature Pulse Rate 94 87 86 Respiratory Rate 18 22 H Blood Pressure Pulse Oximetry 96 Oxygen Delivery Autopap Oxygen Flow Rate 05/14/25 00:00 05/14/25 00:00 05/14/25 02:40 Temperature 97.8 F Pulse Rate 89 77 82 Respiratory Rate 18 19 Blood Pressure 144/84 H Pulse Oximetry 99 Oxygen Delivery Oxygen Flow Rate 05/14/25 02:47 05/14/25 02:47 05/14/25 04:00 Temperature Pulse Rate 85 82 75 Respiratory Rate 17 Blood Pressure Pulse Oximetry 97 Oxygen Delivery Autopap Oxygen Flow Rate 05/14/25 05:59 Temperature 97.8 F Pulse Rate 81 Respiratory Rate 20 Blood Pressure 129/49 L Pulse Oximetry 92 Oxygen Delivery Oxygen Flow Rate Intake/Output Intake/Output: Intake & Output 05/11/25 05/12/25 05/13/25 05/14/25 23:59 23:59 23:59 23:59 Intake Total 2968.9 3406.1 1852 450 Output Total 0 Balance 2968.9 3406.1 1852 450 Meds/Results Medications: Active Medications Generic Name Dose Route Start Last Admin Trade Name Freq PRN Reason Stop Dose Admin Acetaminophen 650 mg 05/11/25 21:37 05/13/25 02:35 Acetaminophen 325 Mg Tablet PO 650 mg Q4H PRN Administration Mild Pain (1-3) or Fever Cinacalcet 90 mg 05/12/25 09:00 05/13/25 08:36 Cinacalcet 30 Mg Tablet PO 90 mg QAM DAVID Administration Dextrose 12.5 gm 05/12/25 01:20 Dextrose 50% 25 Gm/50 Ml Syringe IV PUSH PRN PRN Hypoglycemia Protocol Finasteride 5 mg 05/12/25 09:00 05/13/25 08:36 Finasteride 5 Mg Tablet PO 5 mg QAM DAVID Administration Glucagon 1 mg 05/12/25 01:20 Glucagon For Inj 1 Mg Vial IM PRN PRN Hypoglycemia Protocol Glucose 15 gm 05/12/25 01:20 Glucose Oral Gel 15 Gm Of Glucse In 37.5 Gm Tube PO PRN PRN Hypoglycemia Protocol Dextrose 1,000 mls @ 100 mls/hr 05/12/25 01:20 Dextrose 5% 1,000 Ml IVPB PRN PRN Hypoglycemia Protocol Piperacillin Sod/Tazobactam 50 mls @ 100 mls/hr 05/12/25 08:00 05/14/25 08:30 Sod 2.25 gm/ Sodium Chloride IVPB 100 mls/hr Q8H DAVID Administration Albumin Human 50 mls @ 999 mls/hr 05/13/25 13:10 Albutein IVPB 05/14/25 13:09 Q10M PRN HYPOTENSION Insulin Aspart 2 - 5 units 05/12/25 17:00 05/13/25 17:15 Insulin Aspart (*Bkc) 100 Units/Ml SUB-Q Not Given TIDWM DAVID Protocol Levalbuterol HCl 0.63 mg 05/12/25 02:00 05/14/25 02:40 Levalbuterol Neb 1.25 Mg/3 Ml INHALATION 0.63 mg Q6HRT DAVID Administration Loratadine 10 mg 05/12/25 09:00 05/13/25 08:36 Loratadine 10 Mg Tablet PO 10 mg DAILY DAVID Administration Ondansetron HCl 4 mg 05/11/25 21:37 Ondansetron Inj 4 Mg/2 Ml Vial IV PUSH Q4H PRN Nausea Pantoprazole Sodium 40 mg 05/12/25 09:00 05/13/25 21:11 Pantoprazole Sodium Iv 40 Mg Vial IV PUSH 40 mg Q12HR DAVID Administration Pentoxifylline 400 mg 05/12/25 18:00 05/13/25 17:38 Pentoxifylline 400 Mg Tabcr PO 400 mg QPM DAVID Administration Sevelamer Carbonate 0.8 gm 05/12/25 08:00 05/14/25 08:33 Sevelamer Carbonate 0.8 Gm Oral Powder Packet PO 0.8 gm TIDWM DAVID Administration Sodium Chloride 10 ml 05/12/25 14:00 05/13/25 21:11 Central Line Flush IV PUSH 10 ml Q8HR DAVID Administration Sodium Chloride 20 ml 05/12/25 06:33 Central Line Flush IV PUSH PRN PRN after blood draws Tamsulosin HCl 0.4 mg 05/12/25 21:00 05/13/25 21:11 Tamsulosin Hcl 0.4 Mg Capsule PO 0.4 mg QHS DAVID Administration Umeclidinium [place] 1 puff 05/12/25 08:00 05/13/25 08:21 Umeclidinium [place] 62.5 Mcg Ellipta INHALATION 1 puff DAILYRT DAVID Administration Radiology Results: ITS Impressions Chest X-Ray 05/11/25 19:41 IMPRESSION: No acute cardiopulmonary process. Abdomen/Pelvis CTA 05/11/25 20:52 IMPRESSION: Mild atelectasis/edema in the lung bases. Small bilateral pleural effusions. Hepatomegaly with mild periportal edema and mild perihepatic fluid. Pericholecystic fluid with fluid/inflammation in the min hepatis and surrounding the extrahepatic bile ducts. Consider hepatitis, cholecystitis, and cholangitis in the differential. Bladder wall thickening may be secondary to cystitis or chronic outlet obstruction from prostatomegaly. Extensive atherosclerotic disease. Labs Labs: Laboratory Results - last 24 hr 05/13/25 05/13/25 05/13/25 11:46 16:59 21:20 WBC RBC Hgb Hct MCV MCH MCHC RDW Plt Count MPV Sodium Potassium Chloride Carbon Dioxide Anion Gap BUN Creatinine Estim Creat Clear Calc Estimated GFR Glucose POC Capillary Glucose 168 H 191 H 208 H Calcium Phosphorus Magnesium Total Bilirubin AST ALT Alkaline Phosphatase Total Protein Albumin 05/14/25 05/14/25 06:23 08:25 WBC 6.3 RBC 3.24 L Hgb 8.8 L Hct 29.1 L MCV 89.8 MCH 27.2 MCHC 30.2 L RDW 21.0 H Plt Count 280 MPV 10.5 H Sodium 132 L Potassium 4.2 Chloride 97 L Carbon Dioxide 27 Anion Gap 8 BUN 45 H Creatinine 4.93 H Estim Creat Clear Calc 11 Estimated GFR 11 L Glucose 122 H POC Capillary Glucose 120 H Calcium 7.9 L Phosphorus 3.4 Magnesium 2.0 Total Bilirubin 0.4 AST 53 ALT 164 H Alkaline Phosphatase 62 Total Protein 5.4 L Albumin 2.9 L
[2025-05-14] MEDS: EPOETIN ALFA 20,000 UNITS/ML VIAL 20000 UNITS IV PUSH (12:16)
[2025-05-14] MEDS: FINASTERIDE 5 MG TABLET PO (13:49)
[2025-05-14] MEDS: CINACALCET 30 MG TABLET 90 MG PO (13:49)
[2025-05-14] MEDS: CENTRAL LINE FLUSH 10 ML IV PUSH ×2 (13:50)
[2025-05-14] MEDS: LORATADINE 10 MG TABLET PO (13:50)
[2025-05-14] MEDS: ACETAMINOPHEN 325 MG TABLET 650 MG PO (16:57)
--- NOTE | 2025-05-14 17:37 | P.PNIM_ITS ---
Progress Note: A&P Assessment and Plan (1) GI (gastrointestinal bleed): Qualifiers: GI bleed type/associated pathology: melena Qualified Code(s): K92.1 - Melena Code(s): K92.2 - Gastrointestinal hemorrhage, unspecified Status: Acute (2) Chronic anticoagulation: Code(s): Z79.01 - intermodal customer service (current) use of anticoagulants Status: Acute (3) AVM (arteriovenous malformation) of colon, acquired with hemorrhage: Code(s): K55.21 - Angiodysplasia of colon with hemorrhage Status: Acute (4) Cholelithiasis: Qualifiers: Cholelithiasis location: gallbladder Cholecystitis presence: with cholecystitis Cholecystitis acuity: acute and chronic Biliary obstruction: without biliary obstruction Qualified Code(s): K80.12 - Calculus of gallbladder with acute and chronic cholecystitis without obstruction Code(s): K80.20 - Calculus of gallbladder without cholecystitis without obstruction Status: Acute (5) Transaminitis: Code(s): R74.01 - Elevation of levels of liver transaminase levels Status: Acute (6) Hematoma of right lower leg: Code(s): S80.11XA - Contusion of right lower leg, initial encounter Status: Acute (7) ESRD on dialysis: Code(s): N18.6 - End stage renal disease; Z99.2 - Dependence on renal dialysis Status: Acute (8) Acute hyperkalemia: Code(s): E87.5 - Hyperkalemia Status: Acute (9) Insulin dependent type 2 diabetes mellitus: Onset Date: ~2009 Code(s): E11.9 - Type 2 diabetes mellitus without complications; Z79.4 - intermodal customer service (current) use of insulin Status: Acute (10) Unstageable pressure ulcer of right heel: Code(s): L89.610 - Pressure ulcer of right heel, unstageable Status: Acute Plan The patient presents to the ER hypotensive. Hypotension is likely due to combination of GI bleed and possible sepsis due to underlying infection. Patient did receive 1 L fluid bolus in the ER but further fluid boluses were not continued given the patient's history of end-stage renal disease and history of difficulties with fluid overload in the past. Patient did have significant anemia with large melenic stool with recent history of cecal AVM be on chronic anticoagulation with Eliquis. Eliquis has been held. Patient's INR was elevated to 2.1 which is unusual for the patient. He has been on Eliquis for a while and usually does not have an elevated INR on prior labs. Subsequently DIC panel was obtained which demonstrated and mildly elevated D-dimer but normal fibrinogen making DIC less likely. Patient is currently receiving 2/3 units of packed red blood cells at the time my evaluation. Will transfuse 3rd unit and then repeat labs for a.m.. With the initiation of the 3rd unit of blood the patient blood pressures have stabilized and Levophed has been on hold since 3rd unit of blood has been started. Will avoid anti-platelet medications and thrombolytics. Patient has been started on IV Protonix. If hemoglobin has not stabilized after 30 unit blood transfusion or patient develops recurrent hypotension the patient may need Kcentra. Will consult Gastroenterology. Patient is NPO. The patient's CT also demonstrated edema and inflammation around the gallbladder but patient does not have any reproducible pain on palpation to the right upper quadrant. The he does have increased transaminitis compared to prior discharge values. He was started on empiric antibiotic therapy for possible cholecystitis or ascending cholangitis with Zosyn. General surgery has been consulted. Patient also has a large hematoma on the right anterior griffin that has overlying eschar scab formation. But has a large area of surrounding erythema. A area was examined with ultrasound with visualized large area fluid collection noted beneath. Patient could also have an infected hematoma at this site resulting infection. Will ask General surgery's opinion on this as well. Patient does have end-stage renal disease and receives hemodialysis Sunday. He was mildly hyperkalemic in the ER. The no evidence of peaked T-waves on telemetry and no evidence of acute dysrhythmia decompensation. Will repeat electrolyte panel in a.m.. Patient does have diabetes but is currently euglycemic. Will hold home insulin and patient has been placed on low-dose insulin correction for NPO patient with Accu-Cheks q.6 hours and hypoglycemia protocol as needed. Wound Care has been consulted for the patient's left heel decubitus ulcer. Pressure relieving boots have been ordered. Patient's home antihypertensives, aspirin and Eliquis on hold Given the patient's metabolic encephalopathy is home gabapentin, melatonin, and tramadol on hold. Patient has been admitted to the ICU and harbor pilot has been consulted. Patient is 79 y/o male a resident of [place], with history of ESRD on HD and Atrial fibrillation on chronic anticoagulation with Eliquis, presented to ER with lethargy and abnormal lab low Hgb from the [place], upon arrival patient hgb 5.2. patient was transfused, and his hgb improved, Also patient has history of AVM on previous colonoscopy, patient was seen by GI and recommended since patient had colonoscopy recently suggesting capsule endoscopy for further evaluate, patient is clinically stable, Ct scan of abdomen was concerning of cholecystitis however patient does not any abdominal pain, seen surgery service does not recommend any surgical intervention, will transfer patient to medical floor since he is clinically stable will monitor. today patient remains clinically stable, his hgb and potassium levels are close to normal seen by his homebirth midwife and his volume status stable will have HD tomorrow, patient has history of hypercalcemia, the homebirth midwife ordered bone scan to evaluate any metastatic calcium lesions, results are pending. Today patient placed himself on DNR. Patient with history of hypercalcemia had a bone scan and it showed normal study with physiologic distribution of bone and soft tissue uptake seen by homebirth midwife and further recommendation to follow, today patient was seen after dialysis, he felt tired and weak will, monitor overnight and possible discharge tomorrow. his hgb remains stable after transfusion and will have capsule endoscopy as an outpatient. . Subjective Date/time seen: 05/14/25 17:37 Interval history: Sent from prison for abnormal labs H&P-Narrative: 79-year-old unfortunate male with a past medical history end-stage renal disease on hemodialysis Sunday, insulin-dependent diabetes mellitus, essential hypertension, paroxysmal atrial fibrillation on chronic anticoagulation with Eliquis, peripheral artery disease, obstructive sleep apnea, COPD and a recent hospitalization for GI bleed due to cecal AVM presented to the ER from [facility] via EMS due to low hemoglobin on outpatient labs. Patient is somnolent difficult to arouse and as such majority of information was provided by ER physician report, EMS report and review of past medical records. Patient had reported lower abdominal pain and feeling weak to ER staff. He was alert orient x2 on arrival to the ER but was only alert oriented to his name at the time of my evaluation. He would not stay awake long enough to answer any further questions despite multiple attempts. Patient had denied any nausea vomiting back pain or chest discomfort ER staff. He went to dialysis on Sunday without any issues. Patient had not had any reported melena rectal bleeding according to the patient or prison report. However, just before the patient was transferred up to the ICU he had a large melenic stool. 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 He had a 2nd admission 04/23/2025 through 04/28/2025 at which time he had some transient abdominal pain and elevated AST and ALT. The patient's AST and ALT trended down and abdominal pain resolved with conservative management. In the ER labs demonstrated severe anemia with hemoglobin of 5. His blood pressures in the ER ranged from the mid 70s to low 90 range. A right femoral central line was placed by ER staff and the patient was started on Levophed and 3 units of blood were ordered for transfusion. CTA of the abdomen pelvis demonstrated hepatomegaly with mild periportal edema and mild Yoon hepatic fluid pericholecystic fluid with inflammation in the min hepatis and surrounding extrahepatic bile ducts could be consistent with hepatitis cholecystitis and cholangitis, bladder wall thickening possibly secondary to cystitis versus chronic outlet obstruction and mild atelectasis or edema in the bases and small bilateral pleural effusion. Patient was given a dose of Zosyn and started on vancomycin with pharmacy to dose. On exam the patient was noted to have a large area of eschar to the anterior right griffin with surrounding erythema. The patient had told the nurse it was due to recent fall but was unable to provide me with any details. He did cry out in pain with any palpation of the area. He has been afebrile since presentation. Patient is 79 y/o male a resident of [place], with history of ESRD on HD and Atrial fibrillation on chronic anticoagulation with Eliquis, presented to ER with lethargy and abnormal lab low Hgb from the [place], upon arrival patient hgb 5.2. patient was transfused, and his hgb improved, Also patient has history of AVM on previous colonoscopy, patient was seen by GI and recommended since patient had colonoscopy recently suggesting capsule endoscopy for further evaluate, patient is clinically stable, Ct scan of abdomen was concerning of cholecystitis however patient does not any abdominal pain, seen surgery service does not recommend any surgical intervention, will transfer patient to medical floor since he is clinically stable will monitor. today patient remains clinically stable, his hgb and potassium levels are close to normal seen by his homebirth midwife and his volume status stable will have HD tomorrow, patient has history of hypercalcemia, the homebirth midwife ordered bone scan to evaluate any metastatic calcium lesions, results are pending. Today patient placed himself on DNR. Patient with history of hypercalcemia had a bone scan and it showed normal study with physiologic distribution of bone and soft tissue uptake seen by homebirth midwife and further recommendation to follow, today patient was seen after dialysis, he felt tired and weak will, monitor overnight and possible discharge tomorrow. his hgb remains stable after transfusion and will have capsule endoscopy as an outpatient. Review of Systems Review of Systems: All systems reviewed & are unremarkable except as noted in HPI and below Exam Narrative: Patient is comfortable, NAD HEENT: eyes are clear and none icteric LUNGS:CTA HEART: RR S1S2 ABD: BS+, Soft and nontender Lower extremities: no edema SKIN: nonjaundiced Neuro: grossly intact. Objective Data Vital Signs Vital Signs: Vital Signs - 24 hr 05/13/25 19:56 05/13/25 19:57 05/13/25 20:00 Temperature Pulse Rate 90 90 Respiratory Rate 18 Blood Pressure Pulse Oximetry 98 99 Oxygen Delivery Nasal Cannula Nasal Cannula Oxygen Flow Rate 2 2 05/13/25 20:00 05/13/25 20:05 05/13/25 22:28 Temperature Pulse Rate 94 87 86 Respiratory Rate 18 22 H Blood Pressure Pulse Oximetry 96 Oxygen Delivery Autopap Oxygen Flow Rate 05/14/25 00:00 05/14/25 00:00 05/14/25 02:40 Temperature 36.6 C Pulse Rate 89 77 82 Respiratory Rate 18 19 Blood Pressure 144/84 H Pulse Oximetry 99 Oxygen Delivery Oxygen Flow Rate 05/14/25 02:47 05/14/25 02:47 05/14/25 04:00 Temperature Pulse Rate 85 82 75 Respiratory Rate 17 Blood Pressure Pulse Oximetry 97 Oxygen Delivery Autopap Oxygen Flow Rate 05/14/25 05:59 05/14/25 08:04 05/14/25 08:35 Temperature 36.6 C Pulse Rate 81 85 Respiratory Rate 20 Blood Pressure 129/49 L Pulse Oximetry 92 95 Oxygen Delivery Nasal Cannula Oxygen Flow Rate 2 05/14/25 08:47 05/14/25 08:47 05/14/25 08:59 Temperature Pulse Rate 85 85 82 Respiratory Rate 20 20 20 Blood Pressure Pulse Oximetry 100 Oxygen Delivery Nasal Cannula Oxygen Flow Rate 2 05/14/25 09:32 05/14/25 09:32 05/14/25 09:43 Temperature 36.7 C Pulse Rate 94 89 Respiratory Rate 18 Blood Pressure 153/72 H 147/77 H Pulse Oximetry Oxygen Delivery Oxygen Flow Rate 2 05/14/25 10:00 05/14/25 10:15 05/14/25 10:30 Temperature Pulse Rate 98 91 92 Respiratory Rate Blood Pressure 142/77 H 130/73 138/74 Pulse Oximetry Oxygen Delivery Oxygen Flow Rate 05/14/25 10:45 05/14/25 11:00 05/14/25 11:15 Temperature Pulse Rate 92 95 93 Respiratory Rate Blood Pressure 149/78 H 152/77 H 124/65 Pulse Oximetry Oxygen Delivery Oxygen Flow Rate 05/14/25 11:30 05/14/25 11:45 05/14/25 12:00 Temperature Pulse Rate 91 85 95 Respiratory Rate Blood Pressure 143/70 H 146/73 H 152/73 H Pulse Oximetry Oxygen Delivery Oxygen Flow Rate 05/14/25 12:05 05/14/25 12:15 05/14/25 12:30 Temperature Pulse Rate 94 98 86 Respiratory Rate Blood Pressure 146/74 H 146/69 H Pulse Oximetry Oxygen Delivery Oxygen Flow Rate 05/14/25 12:45 05/14/25 13:00 05/14/25 13:15 Temperature Pulse Rate 95 92 96 Respiratory Rate Blood Pressure 146/70 H 146/71 H 151/80 H Pulse Oximetry Oxygen Delivery Oxygen Flow Rate 05/14/25 13:18 05/14/25 13:30 05/14/25 14:36 Temperature 36.6 C 36.7 C Pulse Rate 94 95 98 Respiratory Rate 18 16 Blood Pressure 146/73 H 134/68 135/82 Pulse Oximetry 100 Oxygen Delivery Oxygen Flow Rate 05/14/25 14:51 05/14/25 14:51 05/14/25 14:57 Temperature Pulse Rate 100 100 99 Respiratory Rate 20 20 20 Blood Pressure Pulse Oximetry 97 Oxygen Delivery Nasal Cannula Oxygen Flow Rate 2 05/14/25 16:04 Temperature Pulse Rate 74 Respiratory Rate Blood Pressure Pulse Oximetry Oxygen Delivery Oxygen Flow Rate Intake/Output Intake/Output: Intake & Output 05/11/25 05/12/25 05/13/25 05/14/25 23:59 23:59 23:59 23:59 Intake Total 2968.9 3406.1 1852 1460 Output Total 0 1999 Balance 2968.9 3406.1 1852 -540 Meds/Results Medications: Active Medications Generic Name Dose Route Start Last Admin Trade Name Freq PRN Reason Stop Dose Admin Acetaminophen 650 mg 05/11/25 21:37 05/14/25 16:57 Acetaminophen 325 Mg Tablet PO 650 mg Q4H PRN Administration Mild Pain (1-3) or Fever Cinacalcet 90 mg 05/12/25 09:00 05/14/25 13:49 Cinacalcet 30 Mg Tablet PO 90 mg QAM DAVID Administration Dextrose 12.5 gm 05/12/25 01:20 Dextrose 50% 25 Gm/50 Ml Syringe IV PUSH PRN PRN Hypoglycemia Protocol Finasteride 5 mg 05/12/25 09:00 05/14/25 13:49 Finasteride 5 Mg Tablet PO 5 mg QAM DAVID Administration Glucagon 1 mg 05/12/25 01:20 Glucagon For Inj 1 Mg Vial IM PRN PRN Hypoglycemia Protocol Glucose 15 gm 05/12/25 01:20 Glucose Oral Gel 15 Gm Of Glucse In 37.5 Gm Tube PO PRN PRN Hypoglycemia Protocol Dextrose 1,000 mls @ 100 mls/hr 05/12/25 01:20 Dextrose 5% 1,000 Ml IVPB PRN PRN Hypoglycemia Protocol Insulin Aspart 2 - 5 units 05/12/25 17:00 05/14/25 13:57 Insulin Aspart (*Bkc) 100 Units/Ml SUB-Q Not Given TIDWM DAVID Protocol Levalbuterol HCl 0.63 mg 05/12/25 02:00 05/14/25 14:50 Levalbuterol Neb 1.25 Mg/3 Ml INHALATION 0.63 mg Q6HRT DAVID Administration Loratadine 10 mg 05/12/25 09:00 05/14/25 13:50 Loratadine 10 Mg Tablet PO 10 mg DAILY DAVID Administration Ondansetron HCl 4 mg 05/11/25 21:37 Ondansetron Inj 4 Mg/2 Ml Vial IV PUSH Q4H PRN Nausea Pentoxifylline 400 mg 05/12/25 18:00 05/13/25 17:38 Pentoxifylline 400 Mg Tabcr PO 400 mg QPM DAVID Administration Sevelamer Carbonate 0.8 gm 05/12/25 08:00 05/14/25 13:50 Sevelamer Carbonate 0.8 Gm Oral Powder Packet PO 0.8 gm TIDWM DAVID Administration Sodium Chloride 10 ml 05/12/25 14:00 05/14/25 13:50 Central Line Flush IV PUSH 10 ml Q8HR DAVID Administration Sodium Chloride 20 ml 05/12/25 06:33 Central Line Flush IV PUSH PRN PRN after blood draws Tamsulosin HCl 0.4 mg 05/12/25 21:00 05/13/25 21:11 Tamsulosin Hcl 0.4 Mg Capsule PO 0.4 mg QHS DAVID Administration Umeclidinium Carmel 1 puff 05/12/25 08:00 05/14/25 08:46 Umeclidinium [place] 62.5 Mcg Ellipta INHALATION 1 puff DAILYRT DAVID Administration Radiology Results: ITS Impressions Chest X-Ray 05/11/25 19:41 IMPRESSION: No acute cardiopulmonary process. Abdomen/Pelvis CTA 05/11/25 20:52 IMPRESSION: Mild atelectasis/edema in the lung bases. Small bilateral pleural effusions. Hepatomegaly with mild periportal edema and mild perihepatic fluid. Pericholecystic fluid with fluid/inflammation in the min hepatis and surrounding the extrahepatic bile ducts. Consider hepatitis, cholecystitis, and cholangitis in the differential. Bladder wall thickening may be secondary to cystitis or chronic outlet obstruction from prostatomegaly. Extensive atherosclerotic disease. Labs Labs: Laboratory Results - last 24 hr 05/13/25 05/14/25 05/14/25 21:20 06:23 08:25 WBC 6.3 RBC 3.24 L Hgb 8.8 L Hct 29.1 L MCV 89.8 MCH 27.2 MCHC 30.2 L RDW 21.0 H Plt Count 280 MPV 10.5 H Sodium 132 L Potassium 4.2 Chloride 97 L Carbon Dioxide 27 Anion Gap 8 BUN 45 H Creatinine 4.93 H Estim Creat Clear Calc 11 Estimated GFR 11 L Glucose 122 H POC Capillary Glucose 208 H 120 H Calcium 7.9 L Phosphorus 3.4 Magnesium 2.0 Total Bilirubin 0.4 AST 53 ALT 164 H Alkaline Phosphatase 62 Total Protein 5.4 L Albumin 2.9 L 05/14/25 05/14/25 13:48 16:36 WBC RBC Hgb Hct MCV MCH MCHC RDW Plt Count MPV Sodium Potassium Chloride Carbon Dioxide Anion Gap BUN Creatinine Estim Creat Clear Calc Estimated GFR Glucose POC Capillary Glucose 148 H 198 H Calcium Phosphorus Magnesium Total Bilirubin AST ALT Alkaline Phosphatase Total Protein Albumin
[2025-05-14] MEDS: PENTOXIFYLLINE 400 MG TABCR PO (18:18)
[2025-05-14] MEDS: TAMSULOSIN HCL 0.4 MG CAPSULE PO (21:34)
[2025-05-15] VITALS (7 sets, daily range): BP systolic 151; BP diastolic 62; PULSE 90–114; RESP 18–20; TEMP 36.9; O2SAT 92–100
[2025-05-15] MEDS: ACETAMINOPHEN 325 MG TABLET 650 MG PO ×3 (02:19→14:10)
[2025-05-15] MEDS: CENTRAL LINE FLUSH 10 ML IV PUSH (03:40)
[2025-05-15 05:25] LABS: Hematocrit 28.5 % (42.0-52.0); Hemoglobin 8.6 g/dL (14.0-18.0); Mean Corpuscular HGB Conc 30.2 g/dl (32-36); Mean Corpuscular Hemoglobin 27.1 pg (26-34); Mean Corpuscular Volume 89.9 fl (80-100); Platelet Count Result 271 k/mm3 (150-375); Red Blood Count 3.17 M/mm3 (4.6-6.20); White Blood Count 5.9 K/mm3 (4.5-10.0)
[2025-05-15 06:12] LABS: Alanine Aminotransferase 122 U/L (6-50); Albumin Level 2.9 g/dL (3.5-5.1); Alkaline Phosphatase 64 U/L (38-126); Anion Gap 6 mmol/L (4-12); Aspartate Amino Transferase 37 U/L (17-59); Bilirubin,Total 0.4 mg/dL (0.2-1.3); Blood Urea Nitrogen 29 mg/dL (9-20); Calcium 7.8 mg/dL (8.4-10.2); Carbon Dioxide 31 mmol/L (22-30); Chloride 97 mmol/L (98-107); Estimated CRCL calculation 15 ml/min; Estimated Glomerular Filt Rate 16; Glucose 129 mg/dL (65-110); Magnesium 1.9 mg/dL (1.6-2.3); Potassium 3.9 mmol/L (3.4-5.0); Sodium 134 mmol/L (137-145); Total Protein 5.3 g/dL (6.3-8.2)
[2025-05-15] MEDS: UMECLIDINIUM BROMIDE 62.5 MCG ELLIPTA 1 PUFF INHALATION (08:41)
[2025-05-15] MEDS: LORATADINE 10 MG TABLET PO (09:23)
[2025-05-15] MEDS: FINASTERIDE 5 MG TABLET PO (09:23)
[2025-05-15] MEDS: CINACALCET 30 MG TABLET 90 MG PO (09:24)
[2025-05-15] MEDS: SEVELAMER CARBONATE 0.8 GM ORAL POWDER PACKET PO ×2 (09:24→13:03)
--- NOTE | 2025-05-15 09:46 | P.DS_ITS ---
DS: Admitting Diagnosis Discharge Date 05/15/25 Admitting Diagnosis Sent from long term for abnormal labs DS: Discharge Diagnosis Discharge Diagnosis (1) GI (gastrointestinal bleed): Qualifiers: GI bleed type/associated pathology: melena Qualified Code(s): K92.1 - Melena Code(s): K92.2 - Gastrointestinal hemorrhage, unspecified Status: Acute (2) Chronic anticoagulation: Code(s): Z79.01 - [facility]FP (current) use of anticoagulants Status: Acute (3) AVM (arteriovenous malformation) of colon, acquired with hemorrhage: Code(s): K55.21 - Angiodysplasia of colon with hemorrhage Status: Acute (4) Cholelithiasis: Qualifiers: Cholelithiasis location: gallbladder Cholecystitis presence: with cholecystitis Cholecystitis acuity: acute and chronic Biliary obstruction: without biliary obstruction Qualified Code(s): K80.12 - Calculus of gallbladder with acute and chronic cholecystitis without obstruction Code(s): K80.20 - Calculus of gallbladder without cholecystitis without obstruction Status: Acute (5) Transaminitis: Code(s): R74.01 - Elevation of levels of liver transaminase levels Status: Acute (6) Hematoma of right lower leg: Code(s): S80.11XA - Contusion of right lower leg, initial encounter Status: Acute (7) ESRD on dialysis: Code(s): N18.6 - End stage renal disease; Z99.2 - Dependence on renal dialysis Status: Acute (8) Acute hyperkalemia: Code(s): E87.5 - Hyperkalemia Status: Acute (9) Insulin dependent type 2 diabetes mellitus: Onset Date: ~2009 Code(s): E11.9 - Type 2 diabetes mellitus without complications; Z79.4 - rn long term care (current) use of insulin Status: Acute (10) Unstageable pressure ulcer of right heel: Code(s): L89.610 - Pressure ulcer of right heel, unstageable Status: Acute Plan The patient presents to the ER hypotensive. Hypotension is likely due to co mbination of GI bleed and possible sepsis due to underlying infection. Patient did receive 1 L fluid bolus in the ER but further fluid boluses were not continued given the patient's history of end-stage renal disease and history of difficulties with fluid overload in the past. Patient did have significant anemia with large melenic stool with recent history of cecal AVM be on chronic anticoagulation with Eliquis. Eliquis has been held. Patient's INR was elevated to 2.1 which is unusual for the patient. He has been on Eliquis for a while and usually does not have an elevated INR on prior labs. Subsequently DIC panel was obtained which demonstrated and mildly elevated D-dimer but normal fibrinogen making DIC less likely. Patient is currently receiving 2/3 units of packed red blood cells at the time my evaluation. Will transfuse 3rd unit and then repeat labs for a.m.. With the initiation of the 3rd unit of blood the patient blood pressures have stabilized and Levophed has been on hold since 3rd unit of blood has been started. Will avoid anti-platelet medications and thrombolytics. Patient has been started on IV Protonix. If hemoglobin has not stabilized after 30 unit blood transfusion or patient develops recurrent hypotension the patient may need Kcentra. Will consult Gastroenterology. Patient is NPO. The patient's CT also demonstrated edema and inflammation around the gallbladder but patient does not have any reproducible pain on palpation to the right upper quadrant. The he does have increased transaminitis compared to prior discharge values. He was started on empiric antibiotic therapy for possible cholecystitis or ascending cholangitis with Zosyn. General surgery has been consulted. Patient also has a large hematoma on the right anterior griffin that has overlying eschar scab formation. But has a large area of surrounding erythema. A area was examined with ultrasound with visualized large area fluid collection noted beneath. Patient could also have an infected hematoma at this site resulting infection. Will ask General surgery's opinion on this as well. Patient does have end-stage renal disease and receives hemodialysis Sunday. He was mildly hyperkalemic in the ER. The no evidence of peaked T-waves on telemetry and no evidence of acute dysrhythmia decompensation. Will repeat electrolyte panel in a.m.. Patient does have diabetes but is currently euglycemic. Will hold home insulin and patient has been placed on low-dose insulin correction for NPO patient with Accu-Cheks q.6 hours and hypoglycemia protocol as needed. Wound Care has been consulted for the patient's left heel decubitus ulcer. Pressure relieving boots have been ordered. Patient's home antihypertensives, aspirin and Eliquis on hold Given the patient's metabolic encephalopathy is home gabapentin, melatonin, and tramadol on hold. Patient has been admitted to the ICU and honing machine operator has been consulted. Patient is 79 y/o male a resident of [place], with history of ESRD on HD and Atrial fibrillation on chronic anticoagulation with Eliquis, presented to ER with lethargy and abnormal lab low Hgb from the [facility], upon arrival patient hgb 5.2. kristen franklin was transfused, and his hgb improved, Also patient has history of AVM on previous colonoscopy, patient was seen by GI and recommended since patient had colonoscopy recently suggesting capsule endoscopy for further evaluate, patient is clinically stable, Ct scan of abdomen was concerning of cholecystitis however patient does not any abdominal pain, seen surgery service does not recommend any surgical intervention, will transfer patient to medical floor since he is clinically stable will monitor. today patient remains clinically stable, his hgb and potassium levels are close to normal seen by his instructional design technologist and his volume status stable will have HD tomorrow, patient has history of hypercalcemia, the instructional design technologist ordered bone scan to evaluate any metastatic calcium lesions, results are pending. Today patient placed himself on DNR. Patient with history of hypercalcemia had a bone scan and it showed normal study with physiologic distribution of bone and soft tissue uptake seen by instructional design technologist and further recommendation to follow, today patient was seen after dialysis, he felt tired and weak will, monitor overnight and possible discharge tomorrow. his hgb remains stable after transfusion and will have capsule endoscopy as an outpatient. . DS: Summary Hospital Course Hospital Course: Patient is 79 y/o male a resident of [place], with history of ESRD on HD and Atrial fibrillation on chronic anticoagulation with Eliquis, presented to ER with lethargy and abnormal lab low Hgb from the [facility], upon arrival patient hgb 5.2. patient was transfused, and his hgb improved, Also patient has history of AVM on previous colonoscopy, patient was seen by GI and recommended since patient had colonoscopy recently suggesting capsule endoscopy for further evaluate, patient is clinically stable, Ct scan of abdomen was concerning of cholecystitis however patient does not any abdominal pain, seen surgery service does not recommend any surgical intervention, will transfer patient to medical floor since he is clinically stable will monitor. today patient remains clinically stable, his hgb and potassium levels are close to normal seen by his instructional design technologist and his volume status stable will have HD tomorrow, patient has history of hypercalcemia, the instructional design technologist ordered bone scan to evaluate any metastatic calcium lesions, results are pending. Today patient placed himself on DNR. Patient with history of hypercalcemia had a bone scan and it showed normal study with physiologic distribution of bone and soft tissue uptake seen by instructional design technologist and further recommendation to follow, today patient was seen after dialysis, he felt tired and weak will, monitor overnight and possible discharge tomorrow. his hgb remains stable after transfusion and will have capsule endoscopy as an outpatient. Patient had HD yesterday he is clinically stable, will discharge patient to [facility] today Time Spent with Patient Time attestation: Total time spent providing and/or coordinating discharge services: Exam Narrative: Patient is comfortable, NAD HEENT: eyes are clear and none icteric LUNGS:CTA HEART: RR S1S2 ABD: BS+, Soft and nontender Lower extremities: no edema SKIN: nonjaundiced Neuro: grossly intact. DS: Data Data Completed and Pending Labs on day of discharge: Labs from last 24 hours 05/15/25 05/15/25 05/14/25 08:19 05:14 21:10 WBC 5.9 RBC 3.17 L Hgb 8.6 L Hct 28.5 L MCV 89.9 MCH 27.1 MCHC 30.2 L RDW 21.2 H Plt Count 271 MPV 10.3 Sodium 134 L Potassium 3.9 Chloride 97 L Carbon Dioxide 31 H Anion Gap 6 BUN 29 H D Creatinine 3.62 H Estim Creat Clear Calc 15 Estimated GFR 16 L Glucose 129 H POC Capillary Glucose 141 H 222 H Calcium 7.8 L Magnesium 1.9 Total Bilirubin 0.4 AST 37 ALT 122 H Alkaline Phosphatase 64 Total Protein 5.3 L Albumin 2.9 L 05/14/25 05/14/25 16:36 13:48 WBC RBC Hgb Hct MCV MCH MCHC RDW Plt Count MPV Sodium Potassium Chloride Carbon Dioxide Anion Gap BUN Creatinine Estim Creat Clear Calc Estimated GFR Glucose POC Capillary Glucose 198 H 148 H Calcium Magnesium Total Bilirubin AST ALT Alkaline Phosphatase Total Protein Albumin Preliminary micro results at discharge 05/11/25 19:31 Blood Culture - Preliminary Blood 05/11/25 19:31 Blood Culture - Preliminary Blood Discharge Plan Discharge Attending physician on discharge: Alexandra Leo Consulting providers: Maurizio Muhammad; Brett Tang; Swathi Hammond; Tiara Nino; Esperanza Price; Heather Mcnulty; Triston Estes; Blair Kent; Korey Amor Discharging Clinician: Gregorio Siegel Patient Disposition: [facility] Activity: as tolerated Diet: low sodium Discharge Instructions: Patient will have scheduled dialysis on Sun//SUN, patient will follow up with his instructional design technologist and primary care provider as soon as possible. Patient Instructions: Antibiotic Form, Apixaban (By mouth), Heart Failure (GEN) Patient Language: Com[place] Stand Alone Forms: General Discharge Information Follow-up/Referrals: PHYSICIAN NOT ON STAFF,NONSTAFF [Primary Care Provider] - Brett Tang MD [Physician] - Discharge Medications: New amlodipine [Norvasc] 5 mg Tablet 5 mg PO DAILY Qty: 30 0RF Continued carvedilol 25 mg tablet 25 mg PO BID aspirin 81 mg tablet,delayed release (DR/EC) 81 mg PO DAILY insulin lispro 100 unit/mL insulin pen 4 unit subcut .TIDAC loratadine [Claritin] 10 mg tablet 10 mg PO DAILY insulin glargine [Lantus Solostar U-100 Insulin] 100 unit/mL (3 mL) insulin pen 6 unit subcut HS atorvastatin 20 mg tablet 20 mg PO HS Patient Comments: Pt not taking-not on pt's med list from long term. tamsulosin 0.4 mg Capsule 0.4 mg PO QHS Qty: 30 0RF furosemide 80 mg Tablet 80 mg PO BID Qty: 60 0RF finasteride [Proscar] 5 mg Tablet 5 mg PO QAM Qty: 30 0RF bisacodyl [Laxative (bisacodyl)] 10 mg suppository 10 mg RECTAL DAILY PRN (Reason: constipation) Rx Instructions: If no results from the MOM. magnesium citrate [Citroma] Solution 296 ml PO .AM PRN (Reason: constipation) Rx Instructions: If no results after enema. Fleet Enema 19-7 gram/118 mL enema 118 ml RECTAL DAILY PRN (Reason: constipation) Rx Instructions: If no results 1 day after the bisacodyl suppository was administered. gabapentin 100 mg capsule 100 mg PO TID liraglutide 0.6 mg/0.1 mL (18 mg/3 mL) pen injector 1.2 mg subcut HS Rx Instructions: To start on 02/20/25. magnesium hydroxide [Milk of Magnesia] 400 mg/5 mL suspension 30 ml PO HS PRN (Reason: constipation) Rx Instructions: If no bowel movement in 3 days. vitamin B complex Capsule 1 cap PO DAILY cinacalcet 90 mg PO DAILY acetaminophen 325 mg Tablet 650 mg PO Q4H PRN (Reason: Mild Pain (1-3) Or Fever) Qty: 60 0RF melatonin 3 mg tablet 3 mg PO HS tramadol 50 mg tablet 50 mg PO BID Incruse Ellipta 62.5 mcg/actuation blister with device 1 inh inhalation DAILY Combivent Respimat 20-100 mcg/actuation mist 1 puff inhalation Q6H PRN (Reason: shortness of breath or wheezing) loperamide 2 mg capsule 2 mg PO Q4H PRN (Reason: loose stool) Rx Instructions: administer after each loose stool until symptoms controlled; do not exceed 8 mg per 24 hrs levalbuterol HCl 1.25 mg/3 mL Solution For Nebulization 0.63 mg inhalation Q6HRT Qty: 30 0RF sevelamer carbonate 0.8 gram Powder In Packet 0.8 g PO TIDWM Qty: 60 0RF levalbuterol HCl 0.63 mg/3 mL solution for nebulization 0.63 mg inhalation Q6H PRN (Reason: shortness of breath or wheezing) Qty: 90 0RF Eliquis 2.5 mg Tablet 2.5 mg PO Q12HR Qty: 60 0RF pentoxifylline 400 mg tablet extended release 400 mg PO QPM Rx Instructions: must administer with a meal/food Discontinued amlodipine 10 mg tablet 10 mg PO DAILY Date of admission: 05/11/25 21:37 Primary Care Provider: PHYSICIAN NOT ON STAFF,NONSTAFF Admitting Provider: Alexandra Leo Attending physician on admission: Gregorio Siegel Condition: Stable
[2025-05-15] MEDS: NEOMYCIN/POLYMYXIN/BACITRACIN OINTMENT PACKET 1 PACKET TOPICAL (11:23)
--- NOTE | 2025-05-15 13:04 | WNDPHOTO ---
PHOTO ONLY - See Nursing Notes and/ or assessments for documentation.
--- NOTE | 2025-05-15 13:44 | P.PNNP_ITS ---
Progress Note: A&P Assessment and Plan (1) End stage renal disease: Code(s): N18.6 - End stage renal disease Status: Chronic Assessment and Plan: * The patient has end-stage renal disease. * This is most likely related to his diabetes hypertension and vascular disease. * He dialyzes 3 times a week at [facility]. * He is due for dialysis today * continue T/T/S outpatient dialysis schedule * Volume status looks okay * Potassium is good today * okay for discharge. He will go to [place] tomorrow for dialysis (2) Atrial fibrillation: Code(s): I48.91 - Unspecified atrial fibrillation Status: Chronic Assessment and Plan: * he is in AFib * his rate is controlled, HR 70 to 90s * he is off Eliquis due to GI bleed * see below (3) Hypercalcemia: Code(s): E83.52 - Hypercalcemia Status: Chronic Assessment and Plan: * not an issue now (4) Anemia: Code(s): D64.9 - Anemia, unspecified Status: Chronic Assessment and Plan: * due to ESRD and recently due to blood loss anemia * Epogen with HD * Hb 8.9 i6 today. stable after transfusions (5) Essential (primary) hypertension: Code(s): I10 - Essential (primary) hypertension Status: Chronic Assessment and Plan: * Systolic was very low. Now it is okay. * Hold antihypertensives until his blood pressure starts to rise * so far bp is good. Today it is 129/40 (6) IDDM (insulin dependent diabetes mellitus): Status: Chronic Assessment and Plan: * follow accu-cheks * glycemic control per hospitalist (7) Anemia requiring transfusions: Code(s): D64.9 - Anemia, unspecified Status: Acute Assessment and Plan: GI bleed probably from AVMs. To change back to po pantoprazole per GI no new interventions planned by GI for. Plan patient is is a DNR Subjective Date/time seen: 05/15/25 13:44 Interval history: patient feels okay today. No chest pain or shortness of breath. Leg pain is better on current pain management. Eager for discharge Exam Narrative: WDWN in NAD skin no rash or subQ nodules head ncat lungs clear bilaterally cor irreg irreg no rub or gallop abd BS+ nontender and soft ext no edema or cyanosis Objective Data Vital Signs Vital Signs: Vital Signs - 24 hr 05/14/25 14:36 05/14/25 14:51 05/14/25 14:51 Temperature 98.1 F Pulse Rate 98 100 100 Respiratory Rate 16 20 20 Blood Pressure 135/82 Pulse Oximetry 100 97 Oxygen Delivery Nasal Cannula Oxygen Flow Rate 2 05/14/25 14:57 05/14/25 16:04 05/14/25 20:00 Temperature Pulse Rate 99 74 Respiratory Rate 20 Blood Pressure Pulse Oximetry Oxygen Delivery Room Air Oxygen Flow Rate 05/14/25 20:29 05/14/25 20:29 05/14/25 20:34 Temperature Pulse Rate 95 90 Respiratory Rate 16 16 Blood Pressure Pulse Oximetry 96 Oxygen Delivery Nasal Cannula Oxygen Flow Rate 2 05/14/25 21:08 05/14/25 21:38 05/15/25 01:43 Temperature 97.8 F Pulse Rate 92 98 96 Respiratory Rate 18 18 20 Blood Pressure 130/71 Pulse Oximetry 93 99 Oxygen Delivery Autopap Oxygen Flow Rate 05/15/25 01:49 05/15/25 05:47 05/15/25 08:42 Temperature 98.5 F Pulse Rate 97 90 114 H Respiratory Rate 20 18 20 Blood Pressure 151/62 H Pulse Oximetry 98 100 Oxygen Delivery Autopap Oxygen Flow Rate 05/15/25 08:44 05/15/25 08:51 05/15/25 09:00 Temperature Pulse Rate 95 Respiratory Rate 20 Blood Pressure Pulse Oximetry 100 92 Oxygen Delivery Nasal Cannula Room Air Oxygen Flow Rate 2 Intake/Output Intake/Output: Intake & Output 05/12/25 05/13/25 05/14/25 05/15/25 23:59 23:59 23:59 23:59 Intake Total 3406.1 1852 1750 950 Output Total 0 2000 Balance 3406.1 1852 -250 950 Meds/Results Medications: Active Medications Generic Name Dose Route Start Last Admin Trade Name Freq PRN Reason Stop Dose Admin Acetaminophen 650 mg 05/11/25 21:37 05/15/25 09:39 Acetaminophen 325 Mg Tablet PO 650 mg Q4H PRN Administration Mild Pain (1-3) or Fever Amlodipine Besylate 5 mg 05/15/25 09:00 05/15/25 09:38 Amlodipine Besylate 5 Mg Tablet PO 5 mg DAILY DAVID Administration Cinacalcet 90 mg 05/12/25 09:00 05/15/25 09:24 Cinacalcet 30 Mg Tablet PO 90 mg QAM DAVID Administration Dextrose 12.5 gm 05/12/25 01:20 Dextrose 50% 25 Gm/50 Ml Syringe IV PUSH PRN PRN Hypoglycemia Protocol Finasteride 5 mg 05/12/25 09:00 05/15/25 09:23 Finasteride 5 Mg Tablet PO 5 mg QAM DAVID Administration Glucagon 1 mg 05/12/25 01:20 Glucagon For Inj 1 Mg Vial IM PRN PRN Hypoglycemia Protocol Glucose 15 gm 05/12/25 01:20 Glucose Oral Gel 15 Gm Of Glucse In 37.5 Gm Tube PO PRN PRN Hypoglycemia Protocol Dextrose 1,000 mls @ 100 mls/hr 05/12/25 01:20 Dextrose 5% 1,000 Ml IVPB PRN PRN Hypoglycemia Protocol Insulin Aspart 2 - 5 units 05/12/25 17:00 05/15/25 12:59 Insulin Aspart (*Bkc) 100 Units/Ml SUB-Q Not Given TIDWM DAVID Protocol Levalbuterol HCl 0.63 mg 05/12/25 02:00 05/15/25 08:40 Levalbuterol Neb 1.25 Mg/3 Ml INHALATION 0.63 mg Q6HRT DAVID Administration Loratadine 10 mg 05/12/25 09:00 05/15/25 09:23 Loratadine 10 Mg Tablet PO 10 mg DAILY DAVID Administration Ondansetron HCl 4 mg 05/11/25 21:37 Ondansetron Inj 4 Mg/2 Ml Vial IV PUSH Q4H PRN Nausea Pentoxifylline 400 mg 05/12/25 18:00 05/14/25 18:18 Pentoxifylline 400 Mg Tabcr PO 400 mg QPM DAVID Administration Sevelamer Carbonate 0.8 gm 05/12/25 08:00 05/15/25 13:03 Sevelamer Carbonate 0.8 Gm Oral Powder Packet PO 0.8 gm TIDWM DAVID Administration Sodium Chloride 10 ml 05/12/25 14:00 05/15/25 03:40 Central Line Flush IV PUSH 10 ml Q8HR DAVID Administration Sodium Chloride 20 ml 05/12/25 06:33 Central Line Flush IV PUSH PRN PRN after blood draws Tamsulosin HCl 0.4 mg 05/12/25 21:00 05/14/25 21:34 Tamsulosin Hcl 0.4 Mg Capsule PO 0.4 mg QHS DAVID Administration Umeclidinium [place] 1 puff 05/12/25 08:00 05/15/25 08:41 Umeclidinium [place] 62.5 Mcg Ellipta INHALATION 1 puff DAILYRT DAVID Administration Radiology Results: ITS Impressions Chest X-Ray 05/11/25 19:41 IMPRESSION: No acute cardiopulmonary process. Abdomen/Pelvis CTA 05/11/25 20:52 IMPRESSION: Mild atelectasis/edema in the lung bases. Small bilateral pleural effusions. Hepatomegaly with mild periportal edema and mild perihepatic fluid. Pericholecystic fluid with fluid/inflammation in the min hepatis and surrounding the extrahepatic bile ducts. Consider hepatitis, cholecystitis, and cholangitis in the differential. Bladder wall thickening may be secondary to cystitis or chronic outlet obstruction from prostatomegaly. Extensive atherosclerotic disease. Labs Labs: Laboratory Results - last 24 hr 05/14/25 05/14/25 05/14/25 13:48 16:36 21:10 WBC RBC Hgb Hct MCV MCH MCHC RDW Plt Count MPV Sodium Potassium Chloride Carbon Dioxide Anion Gap BUN Creatinine Estim Creat Clear Calc Estimated GFR Glucose POC Capillary Glucose 148 H 198 H 222 H Calcium Magnesium Total Bilirubin AST ALT Alkaline Phosphatase Total Protein Albumin 05/15/25 05/15/25 05/15/25 05:14 08:19 11:41 WBC 5.9 RBC 3.17 L Hgb 8.6 L Hct 28.5 L MCV 89.9 MCH 27.1 MCHC 30.2 L RDW 21.2 H Plt Count 271 MPV 10.3 Sodium 134 L Potassium 3.9 Chloride 97 L Carbon Dioxide 31 H Anion Gap 6 BUN 29 H D Creatinine 3.62 H Estim Creat Clear Calc 15 Estimated GFR 16 L Glucose 129 H POC Capillary Glucose 141 H 161 H Calcium 7.8 L Magnesium 1.9 Total Bilirubin 0.4 AST 37 ALT 122 H Alkaline Phosphatase 64 Total Protein 5.3 L Albumin 2.9 L
--- NOTE | 2025-05-15 14:41 | PCRCNOTE ---
1400 breathing tx was pulled from pyxis by RT, however RT arrived to pt room to find pt has been discharged. Pt med will be returned. Nurse aware.
== END 2025-05-15 14:30 | DRG 871 ==
LOC: ANHED 19:09 → ANHICU 22:27 → ANH3MED 05-13 11:31 → ANHICU 05-18 10:36
PROVIDERS: Emergency Medicine; Internal Medicine; Internal Medicine Nephrology; Admitting Provider Internal Medicine; Emergency Provider Student in an Organized Health Care Education/Training Program; Visit Provider Family Medicine
DX: A41.9 Sepsis, unspecified organism (principal); G93.41 Metabolic encephalopathy; K55.21 Angiodysplasia of colon with hemorrhage; N18.6 End stage renal disease; K80.10 Calculus of gallbladder with chronic cholecystitis without obstruction; K83.09 Other cholangitis; I12.0 Hypertensive chronic kidney disease with stage 5 chronic kidney disease or end stage renal disease; I48.20 Chronic atrial fibrillation, unspecified; E87.1 Hypo-osmolality and hyponatremia; I50.32 Chronic diastolic (congestive) heart failure; D62 Acute posthemorrhagic anemia; R57.9 Shock, unspecified; E11.22 Type 2 diabetes mellitus with diabetic chronic kidney disease; E83.52 Hypercalcemia; L89.620 Pressure ulcer of left heel, unstageable; S80.11XA Contusion of right lower leg, initial encounter; W22.8XXA Striking against or struck by other objects, initial encounter; E11.42 Type 2 diabetes mellitus with diabetic polyneuropathy; G47.33 Obstructive sleep apnea (adult) (pediatric); E87.5 Hyperkalemia; E78.5 Hyperlipidemia, unspecified; D63.1 Anemia in chronic kidney disease; E86.0 Dehydration; J44.9 Chronic obstructive pulmonary disease, unspecified; Z66 Do not resuscitate; Z99.2 Dependence on renal dialysis; Z95.1 Presence of aortocoronary bypass graft; Z79.01 Long term (current) use of anticoagulants; Z90.49 Acquired absence of other specified parts of digestive tract; Z99.81 Dependence on supplemental oxygen; Z95.0 Presence of cardiac pacemaker; Z95.820 Peripheral vascular angioplasty status with implants and grafts; Z87.891 Personal history of nicotine dependence
CPT/HCPCS: 36415; 36430; 36556; 36600; 71045; 74174; 78306; 80053; 80202; 82375; 82805; 82948; 83050; 83605; 83690; 83735; 84100; 85018; 85025; 85027; 85380; 85384; 85610; 85730; 86850; 86900; 86901; 86923; 87040; 87641; 94640; 96365; 96367; 96375; 99291; A9270; A9503; C1751; G0257; J2270; J2470; J2543; J3373; J7030; J7040; J7050; J7120; P9016; Q4081; Q9967

== ENCOUNTER 2025-05-29 05:43 | Outpatient (CLI) | payer MEDICARE, OTHER, SELFPAY ==
--- OUTSIDE RECORDS SUMMARY | 2025-05-29 05:46 | XMS_ITS ---
Author Organization [facility] Address [address] [place] [id number] Care Team Providers Care Room Cooler Installer Name Role Phone Efren Hoyos MD Unavailable Dank Hicks MD Unavailable [phone] Mariza Carrion MD Primary Care Provider Dialysis Access Sites Type Status Location Placement Date Removal Da te AV fistula Active Left Upper Arm - Anterior AV fistula Inactive 10/23/2024 Procedures Procedure Name Priority Date/Time Associated Diagnosis Comments NM MPI SPECT (REST AND/OR STRESS) MULTIPLE STUDIES Schedule Routine, Read Routine (OP Routine) 05/22/2025 12:04 PM CDT NSTEMI (non-ST elevated myocardial infarction) (HCC) CARDIOLOGY DOCUMENT SCAN Routine 04/27/2025 3:08 PM CDT CARDIOLOGY DOCUMENT SCAN Routine 04/26/2025 3:05 PM CDT CARDIOLOGY DOCUMENT SCAN Routine 04/25/2025 3:03 PM CDT CARDIOLOGY DOCUMENT SCAN Routine 04/24/2025 2:49 PM CDT POCT HEMOGLOBIN A1C Routine 11/24/2024 10:01 AM DIRECTOR FUNDRAISING Type 2 diabetes mellitus with hyperglycemia, with long-term current use of insulin (CMS/HCC) EGFR Routine 10/25/2024 5:48 AM DIRECTOR FUNDRAISING HEPATITIS PANEL, ACUTE Routine 10/23/2024 2:45 PM DIRECTOR FUNDRAISING HM DIABETES EYE EXAM Routine 08/13/2024 9:40 AM CDT ALBUMIN CREATININE RATIO, URINE Routine 03/10/2024 8:46 AM CDT Type 2 diabetes mellitus with hyperglycemia, with long-term current use of insulin (CMS/HCC) LIPID PANEL Routine 03/03/2024 9:29 AM CDT Type 2 diabetes mellitus with hyperglycemia, with long-term current use of insulin ([facility]/HCC) Hyperlipidemia associated with type 2 diabetes mellitus (HCC) CT ABDOMEN PELVIS WO CONTRAST Schedule Routine, Read Routine (OP Routine) 12/05/2021 11:53 AM DIRECTOR FUNDRAISING End stage renal disease (HCC) from Last [...] insulin ([facility]) Use to test glucose 5 times daily 450 each 2 04/03/20 18 Active lancets (freestyle) 28 gauge miscIndications:T ype 2 diabetes mellitus with hyperglycemia, with long-term current use of insulin ([facility]) Use to test glucose 5 [...] use of insulin ([facility]) Inject 0.5ML(1.5MG total) under the skin [...] 30 mL 2 11/25/19 25 026 Active Hospital, Clinic, or Other Facility Administered Medication Ordered Dose Route Frequency Start Date End Date Status aminophylline 250 mg/10 mL injection 100 mgIndications:NSTEMI (non-ST elevated myocardial infarction) (HCC) 100 mg IV Once 05/22/2025 05/22/2025 Ended Active Problems Problem Noted Date Diagnosed Date Cardiac pacemaker in situ 11/04/2024 Overview (11/04/2024): Medtronic Micra AV2 Pacemaker. Dx; Symptomatic Bradycardia, Sinus Arrest, Syncope. DOI 10/24/2024-Ramadan. Patricia. [employer]link remote. Glaucoma 10/23/2024 Benign prostatic hyperplasia without lower urinary tract symptoms 10/23/2024 Asystole 10/23/2024 Syncope and collapse 10/22/2024 ESRD on hemodialysis 12/09/2019 Assessment & Plan (09/03/2023 9:28 AM DIRECTOR FUNDRAISING): Chronic problem. [facility] [place]: //Saturdays. LUE fistula. Assessment & Plan (03/05/2023 9:59 AM CDT): Chronic problem. [facility] [place]: //Saturdays. LUE fistula. Hyperlipidemia associated with type 2 diabetes fouzia victoria 05/22/2019 Assessment & Plan (11/24/2024 10:10 AM DIRECTOR FUNDRAISING): Chronic problem. Controlled on current Atorvastatin 20mg. Last lipid panel: 03/03/24 LDL=33, TG=75. Assessment & Plan (03/03/2024 8:45 AM CDT): Chronic problem. Controlled on current Atorvastatin 20mg. Last lipid panel: 03/05/23 LDL=57, NW=831. Will update labs today. Does not mychart. Verified phone #/address to contact re: results. Assessment & Plan (09/03/2023 9:28 AM DIRECTOR FUNDRAISING): Chronic problem. Controlled on current Atorvastatin 20mg. Last lipid panel: 03/05/23 LDL=57, UQ=422. Assessment & Plan (03/05/2023 9:53 AM CDT): Chronic problem. Controlled on current Atorvastatin 20mg. Last lipid panel: 12/05/21 LDL=36, ZY=888. Will update labs today. Verified phone #/address to contact re: results. Assessment & Plan (11/02/2022 2:47 PM DIRECTOR FUNDRAISING): Chronic, well controlled Low fat Low cholesterol [...] Lipitor Assessment & Plan (09/07/2020 2:26 PM DIRECTOR FUNDRAISING): Goal of treatment , LDL cholesterol less [...] panel Assessment & Plan (12/09/2019 2:03 PM DIRECTOR FUNDRAISING): Very high TG Add Vascepa Assessment & [...] statin therapy Coronary artery disease invo lving craig coronary artery of craig heart without angina pectoris 10/04/2017 Hx of CABG 10/04/2017 Class 2 severe obesity due t o excess calories with serious comorbidity and body mass index (BMI) of 38.0 to 38.9 in adult 05/22/2017 Assessment & Plan (10/24/2018 12:58 PM DIRECTOR FUNDRAISING): Making progress with diet efforts. Continue Assessment & Plan (02/08/2018 11:01 AM CDT): Importance of following diet and exercising discussed. Hypertension associated with diabetes 05/22/2017 Assessment & Plan (11/24/2024 10:11 AM DIRECTOR FUNDRAISING): Chronic problem. Controlled on current losartan 100mg daily, amlodipine 10mg daily Assessment & Plan (03/03/2024 8:45 AM CDT): Chronic problem. BP elevated upon arrival. Controlled on current Carvedilol 25mg bid, losartan 100mg daily. No changes at this time. Will update labs today. Does not mychart. Verified phone #/address to contact re: results. Assessment & Plan (09/03/2023 9:28 AM DIRECTOR FUNDRAISING): Chronic problem. BP elevated upon arrival. Controlled [...] renal Assessment & Plan (10/24/2018 12:57 PM DIRECTOR FUNDRAISING): Controlled. Continue current medication plan and follow up with cardiology Assessment & Plan (06/18/2018 2:30 PM CDT): BP controlled on current medication plan. Continue follow up with nephrology Assessment & Plan (02/08/2018 11:00 AM CDT): Continue same medication Assessment & Plan (12/11/2017 10:24 AM DIRECTOR FUNDRAISING): Goal blood pressure is less than 140/85 [...] mellitus Assessment & Plan (11/24/2024 10:16 AM DIRECTOR FUNDRAISING): Chronic problem, controlled on current regimen. 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 Assessment & Plan (09/03/2023 9:27 AM DIRECTOR FUNDRAISING): Chronic problem, controlled on current regimen. 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 Assessment & Plan (03/05/2023 10:13 AM CDT): Chronic problem, controlled on current regimen. 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 Will update labs today. Verified phone #/address to contact re: results. Assessment & Plan (11/02/2022 2:43 PM DIRECTOR FUNDRAISING): Well controlled, with risk of hypoglycemia Insuli [...] Ross Assessment & Plan (09/07/2020 2:26 PM DIRECTOR FUNDRAISING): Hba1c was Lab Results Component Value Date [...] Trulicity. Assessment & Plan (12/09/2019 2:03 PM DIRECTOR FUNDRAISING): Your Hba1c today was: Lab Results Component Value Date HGBA1C 9.3 12/09/2019 meaning a 3 month average sugar of : 224 Your goal hba1c is under 7.0 to prevent correction diabetes complications ( eye , kidney and [...] hypoglycemia. Assessment & Plan (10/24/2018 1:00 PM DIRECTOR FUNDRAISING): Stable BG pattern 100-140 reported since last adjustment to plan. No change today. BG goals reviewed. Advised to lower Lantus by 2 units if FBG are < 100 x 2 days/wk. For planned activity, reduce Humalog dose by 1/2 at preceding meal. Assessment & Plan (09/19/2018 11:11 AM DIRECTOR FUNDRAISING): Your Hba1c today was: Lab Results Component Value Date HGBA1C 5.1 09/19/2018 meaning a 3 month average sugar of : 81 Your goal hba1c is under 7.0 to prevent rodent exterminator diabetes complications ( eye , kidney [...] time. Assessment & Plan (12/11/2017 10:47 AM DIRECTOR FUNDRAISING): Hba1c was .5.4 Today, 1800 calorie, consistent [...] drink = 0.6 oz pur e alcohol) [facility] Utilities Answer Date Recorded In [...] often do you attend chur ch or advent services? Never 10/23/2024 Do you belong to any clubs o r organizations such as baptist groups, unions, fraternal or athletic groups, or [...] any time in the past 12 m [facility], were you homeless or living in a care home (including now)? No 10/23/2024 Personal Safety Answer Date Recorded Have you ever been in or are you currently in a harmful physical or emotional relationship or is someone making you feel afraid or unsafe? Denies 10/22/2024 Sex and Gender Information Value Date Recorded Sex Assigned at Not on file Legal Sex Male 7:27 PM DIRECTOR FUNDRAISING Gender Identity Not on file Sexual Orientation Not on file Last Filed Vital Signs Vital Sign Reading Time Taken Comments Blood Pressure 102/58 11/24/2024 9:58 AM DIRECTOR FUNDRAISING Pulse 75 11/24/2024 9:58 AM DIRECTOR FUNDRAISING Temperature 36.3 C (97.3 F) 10/25/2024 2:15 PM DIRECTOR FUNDRAISING Respiratory Rate 20 11/24/2024 9:58 AM DIRECTOR FUNDRAISING Oxygen Saturation 100% 10/25/2024 1:15 PM DIRECTOR FUNDRAISING Inhaled Oxygen Concentration - - Weight 91.3 kg (201 lb 4.5 oz) 10/22/2024 8:29 P M DIRECTOR FUNDRAISING Height 170.2 cm (5' 7.01) 11/24/2024 9:58 AM CS T Body Mass Index 31.52 10/22/2024 8:29 PM DIRECTOR FUNDRAISING Results * NM MPI SPECT (Rest and/or Stress) Multiple Studies (05/22/2025 12:04 PM CDT) Anatomical Region Laterality Modality Body N/A Electrocardiogra phy 05/22/2025 10:0 0 AM CDT Narrative 05/22/2025 1:01 PM CDT [facility] [address], [place] [address] [address] [facility] [address], [place] [address] [address], [place] [address] P:[phone] P:[phone] MPI Imaging Report Patient Name: BRANDIE MORRISSEYAshlyn : 1945 Study Date: 05/22/2025 10:00:00 AM Gender: M Tech: [facility] Location: [facility] Provider: MASOOD HYACINTH Height(Cm): 170.2 BSA: Weight(Kg): 91.3 Heart Rate: 121 BMI: 31.52 Order Provider: MASOOD HYACINTH PHYSICIAN: Primary Care Physician: Dr. Carrion. [facility] [employer] Physician: Dank Hicks M.D.,Jasen Stress Supervision: Dank Hicks M.D.,Jasen Stress Interpreting Physician: Dank Hicks M.D.,Jasen Image Interpreting Physician: Dank Hicks M.D.,RandiCAlva PROCEDURES: Pharmacologic SPECT Report: Myocardial perfusion imaging with Tc99M Sestamibi SPECT at rest and stress post regadenoson (Lexiscan) infusion. INDICATIONS: Coronary Artery Disease, Hypertension, Diabetes, High Cholesterol, Former Smoker, and I21.4 Non-ST elevation (NSTEMI) myocardial infarction. FINDINGS: Procedural Findings: One day rest/stress was used. Tc99m Sestamibi injected IV at rest was 12.7 millicuries 37.8 millicuries of Tc99M Sestamibi injected IV during Lexiscan stress Lexiscan 0.4mg administered IV over 10 seconds. Pharmacologic stress related symptoms and/or side effects during infusion include dizziness. Symptoms were resolved with 100 mg of aminophylline IVP. Baseline heart rate was 76 BPM Maximum Heart Rate Achieved was: 84 BPM Baseline blood pressure was 134/68 mmHg Post Stress Blood Pressure was 126/68 mmHg Termination: Protocol complete. Resting ECG: Sinus rhythm. RBBB , left axis deviation. Post ECG: No diagnostic ST changes. Perfusion Findings: A TID of 1.11 was automatically calculated. defect 1: Size is medium. Severity is moderate to severe in intensity. Location of defect is in the mid anterior segment and apical anterior segment. Reversibility is full. Type of defect is ischemia. LV Function: Left ventricular ejection fraction is 41 %. There is mild LV dysfunction. CONCLUSIONS: Sinus rhythm RBBB , left axis deviation. No diagnostic ST changes. Left ventricular ejection fraction is 41 %. There is mild LV dysfunction. Size is medium. Severity is moderate to severe in intensity. Location of defect is in the mid anterior segment and apical anterior segment. Reversibility is full. Type of defect is ischemia. Electronically Signed By: Dank Hicks MD, [facility] 05/22/2025 1:00:48 PM CDT Electronically Signed By: Dank Hicks MD, [facility] 05/22/2025 1:00:48 PM CDT Procedure Note Dank Hicks MD - 05/22/2025 [facility] [address] [facility] [address], [place] [address] [address] [facility] [address], [place] [address] [address] [place] [address] P:[phone] P:[phone] MPI Imaging Report Patient Name: BRANDIE MORRISSEY R : 1945 Study Date: 05/22/2025 10:00:00 AM Gender: M Tech: [facility] Location: [facility] Provider: HYACINTH CORREIA Height(Cm): 170.2 BSA: Weight(Kg): 91.3 Heart Rate: 121 BMI: 31.52 Order Provider: HYACINTH CORREIA PHYSICIAN: Primary Care Physician: Dr. Carrion. [employer] [employer] Physician: Dank Hicks M.D.,F.A.C.C. Stress Supervision: Dank Hicks M.D.,Jasen Stress Interpreting Physician: Dank Hicks M.D.,Jasen Image Interpreting Physician: Dank Hicks M.D.,[facility]. PROCEDURES: Pharmacologic SPECT Report: Myocardial perfusion imaging with Tc99M Sestamibi SPECT at rest and stresspost regadenoson (Lexiscan) infusion. INDICATIONS: Coronary Artery Disease, Hypertension, Diabetes, High Cholesterol, FormerSmoker, and I21.4 Non-ST elevation (NSTEMI) myocardial infarction. FINDINGS: Procedural Findings: One day rest/stress was used. Tc99m Sestamibi injected IV at rest was 12.7 millicuries 37.8 millicuries of Tc99M Sestamibi injected IV during Lexiscan stress Lexiscan 0.4mg administered IV over 10 seconds. Pharmacologic stress related symptoms and/or side effects duringinfusion include dizziness. Symptoms were resolved with 100 mg of aminophylline IVP. Baseline heart rate was 76 BPM Maximum Heart Rate Achieved was: 84 BPM Baseline blood pressure was 134/68 mmHg Post Stress Blood Pressure was 126/68 mmHg Termination: Protocol complete. Resting ECG: Sinus rhythm. RBBB , left axis deviation. Post ECG: No diagnostic ST changes. Perfusion Findings: A TID of 1.11 was automatically calculated. defect 1: Size is medium. Severity is moderate to severe in intensity. Location ofdefect is in the mid anterior segment and apical anterior segment. Reversibility is full.Type of defect is ischemia. LV Function: Left ventricular ejection fraction is 41 %. There is mild LVdysfunction. CONCLUSIONS: Sinus rhythm RBBB , left axis deviation. No diagnostic ST changes. Left ventricular ejection fraction is 41 %. There is mild LVdysfunction. Size is medium. Severity is moderate to severe in intensity. Location ofdefect is in the mid anterior segment and apical anterior segment. Reversibility is full.Type of defect is ischemia. Electronically Signed By: Dank Hicks MD, [facility] 05/22/2025 1:00:48 PM CDT Electronically Signed By: Dank Hicks MD, [facility] 05/22/2025 1:00:48 PM CDT Hyacinth Correia MD IMG NM PROCEDURES Final Res ult * Cardiology Document Scan (04/27/2025 3:08 PM CDT) Anatomical Region Laterality Modality Other us Hyacinth Correia MD [facility] PROCEDU RES Final [...] * POCT hemoglobin A1c (11/24/2024 10:01 AM DIRECTOR FUNDRAISING) Pathologist [facility] Hemoglobin A1C, POC 4.9 4.0 - 5.6 % Blood 11/24/2024 10:0 1 AM DIRECTOR FUNDRAISING Bertha Pinto NP POINT OF CARE TEST ORDERA BLES Final Result * (ABNORMAL) eGFR (10/25/2024 5:48 AM DIRECTOR FUNDRAISING) Pathologist [facility] eGFR 9(L) >=60 mL/min/1. [...] last reviewed 2021. Blood 10/25/2024 5:48 AM DIRECTOR FUNDRAISING 10/25/2024 6:03 AM DIRECTOR FUNDRAISING us Raisa Scherer NP LAB BLOOD ORDERABLES Jeaneth mari Result [facility] [id number] Department [place] [address] * Hepatitis panel, acute Blood (10/23/2024 2:45 PM DIRECTOR FUNDRAISING) Hep A IgM Nonreactive Nonreactive Comment: Interpretive [...] last revised on 2020. HepBsAg Nonreactive Nonreactive [facility] Blood 10/23/2024 2:45 PM DIRECTOR FUNDRAISING 10/23/2024 2:46 PM DIRECTOR FUNDRAISING Sherrill Christianson MD LAB MICROBIOLOGY - GENERAL ORDERABLES Final Result Performing Organization Address [facility] Co de Phone Number [facility] [place] [id number] Department [place] [address] * (ABNORMAL) DIABETES EYE EXAM (08/13/2024 9:40 AM CDT) Historical Provider HEALTH MAINTENANCE Edited Result - Final * (ABNORMAL) Albumin Creatinine Ratio, Urine (03/10/2024 8:46 AM CDT) Albumin Ur 3,169.5 mg/L Comment: Interpretive Data No reference range established. Current interpretive data was last revised 2019. Creatinine Ur 47.7 mg/dL [facility] Comment: Interpretive Data No reference range established. Current interpretive data was last revised 2019. Albumin Creatinine Ratio, Ur 6,645(H) 1 - 29 mg/g [facility] Urine 03/10/2024 8:46 AM CDT 03/11/2024 9:11 AM CDT Bertha Pinto [employer]IST LAB URINE ORDERABLES Jeaneth l Result Performing Organization Address [facility] Co de Phone Number [facility] [place] [address] Department [place] [address] * (ABNORMAL) Lipid panel (03/03/2024 9:29 AM [...] LAB BLOOD ORDERABLES Jeaneth l Result [facility] [id number] Department [place] [address] * CT Abdomen Pelvis WO Contrast (12/05/2021 11:53 AM DIRECTOR FUNDRAISING) Anatomical Region Laterality Modality Body N/A Computed Tomogra phy 12/05/2021 12:0 4 PM DIRECTOR FUNDRAISING Impressions 12/05/2021 12:04 PM DIRECTOR FUNDRAISING Bone windows show no suspicious lytic or blastic lesions. IMPRESSION: 1. 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 2. 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 Electronically signed by: Ryan Cameron M.D. Narrative 12/05/2021 12:04 PM DIRECTOR FUNDRAISING EXAMINATION: Computed tomography of the abdomen/pelvis without [...] adeniform shape. There is atrophy of both craig kidneys. Adjacent fat stranding is likely related [...] adeniform shape. There is atrophy of both craig kidneys. Adjacent fat stranding is likely related [...]
--- OUTSIDE RECORDS SUMMARY | 2025-05-29 05:46 | XMS_ITS | Encounter Summary ---
Author Organization [facility] Address [address] [place] [address] Care Team Providers Care Reception Name Role Phone Mariza Carrion MD Primary Care Provider Encounter Details Date Type Department Care Team (Late Contact Info) Description 06/03/[address] 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 Vascular Services [address] [facility], [address] [place] [address] [place] [address] [phone] documented as of this encounter Visit Diagnoses Not on filedocumented in this encounter Care Teams Reception Relationship Specialty Start Date End Date Mariza Carrion MD [address] [place] [address] PCP - General Family Medicine 08/26/18 documented as of this encounter
--- OUTSIDE RECORDS SUMMARY | 2025-05-29 05:47 | XMS_ITS | Clinical Summary ---
Author Organization [facility] Address [address] [place] [phone] Phone Care Team Providers Care Patient Support Assistant Name Role Phone Mariza Carrion MD [...] dir 0 11/12/2017 Active ergocalciferol (VITAMIN D-2) 61217 units capsule Take 1 capsule (50,000 Units total) by mouth 2 (two) times a week. 28 capsule 3 03/27/2019 Active hydrALAZINE (APRESOLINE) 100 MG tablet TAKE 1 TABLET TWICE A DAY 180 tablet 4 04/30/2019 Active aspirin 81 MG chewable tablet one p.o. qd 05/23/2012 A ctive ergocalciferol (VITAMIN D-2) 07492 units capsule one p.o. capsule once a [...] Vaccine (#1) 2025 Insurance MEDICARE Care Teams Patient Support Assistant Relationship Specialty Start Date End Date Mariza Carrion MD [address] [place] [address] PCP - General Internal Medicine 01/06/19
--- OUTSIDE RECORDS SUMMARY | 2025-05-29 05:47 | XMS_ITS | Clinical Summary ---
Author Organization [facility] Address [address] [place] [id number] Care Team Providers Care Sew On Operator Name Role Phone Efren Hoyos MD [...] hyperglycemia, with long-term current use of insulin ([facility]) Change sensor every 14 days 9 [...] hyperglycemia, with long-term current use of insulin ([facility]) Use pads 5 times daily 200 [...] Bradycardia, Sinus Arrest, Syncope. DOI 10/24/2024-Ramadan. Patricia. [facility] Glaucoma 10/23/2024 Benign prostatic hyperplasia without lower urinary tract symptoms 10/23/2024 Asystole 10/23/2024 Syncope and collapse 10/22/2024 ESRD on hemodialysis 12/09/2019 Assessment & Plan (09/03/2023 9:28 AM AUXILIARY EQUIPMENT OPERATOR): Chronic problem. HD [facility] in [place]: //Saturdays. LUE fistula. Assessment & Plan (03/05/2023 9:59 AM CDT): Chronic problem. HD [facility] in [place]: //Saturdays. LUE fistula. Hyperlipidemia associated with type 2 diabetes fouzia victoria 05/22/2019 Assessment & Plan (11/24/2024 10:10 AM AUXILIARY EQUIPMENT OPERATOR): Chronic problem. Controlled on current Atorvastatin 20mg. Last lipid panel: 03/03/24 LDL=33, TG=75. Assessment & Plan (03/03/2024 8:45 AM CDT): Chronic problem. Controlled on current Atorvastatin 20mg. Last lipid panel: 03/05/23 LDL=57, YW=463. Will update labs today. Does not mychart. Verified phone #/address to contact re: results. Assessment & Plan (09/03/2023 9:28 AM AUXILIARY EQUIPMENT OPERATOR): Chronic problem. Controlled on current Atorvastatin 20mg. Last lipid panel: 03/05/23 LDL=57, XZ=500. Assessment & Plan (03/05/2023 9:53 AM CDT): Chronic problem. Controlled on current Atorvastatin 20mg. Last lipid panel: 12/05/21 LDL=36, GC=753. Will update labs today. Verified phone #/address to contact re: results. 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 Continue Assessment & Plan (02/08/2018 11:01 AM CDT): Importance of following diet and exercising discussed. Hypertension associated with diabetes 05/22/2017 Assessment & Plan (11/24/2024 10:11 AM AUXILIARY EQUIPMENT OPERATOR): Chronic problem. Controlled on current losartan 100mg daily, amlodipine 10mg daily Assessment & Plan (03/03/2024 8:45 AM CDT): Chronic problem. BP elevated upon arrival. Controlled on current Carvedilol 25mg bid, losartan 100mg daily. No changes at this time. Will update labs today. Does not mychart. Verified phone #/address to contact re: results. Assessment & Plan (09/03/2023 9:28 AM AUXILIARY EQUIPMENT OPERATOR): Chronic problem. BP elevated upon arrival. [...] renal Assessment & Plan (10/24/2018 12:57 PM AUXILIARY EQUIPMENT OPERATOR): Controlled. Continue current medication plan and follow up with cardiology Assessment & Plan (06/18/2018 2:30 PM CDT): BP controlled on current medication plan. Continue follow up with nephrology Assessment & Plan (02/08/2018 11:00 AM CDT): Continue same medication Assessment & Plan (12/11/2017 10:24 AM AUXILIARY EQUIPMENT OPERATOR): Goal blood pressure is less than [...] mellitus Assessment & Plan (11/24/2024 10:16 AM AUXILIARY EQUIPMENT OPERATOR): Chronic problem, controlled on current regimen. [...] daily for skin breakdown and infection (sees pharmacy technician trainee regularly). Assessment & Plan (03/03/2024 9:19 AM [...] daily for skin breakdown and infection (sees pharmacy technician trainee regularly). Assessment & Plan (09/03/2023 9:27 AM AUXILIARY EQUIPMENT OPERATOR): Chronic problem, controlled on current regimen. [...] daily for skin breakdown and infection (sees pharmacy technician trainee regularly). Assessment & Plan (03/05/2023 10:13 AM CDT): Chronic problem, controlled on current regimen. Current medications: Trulicity 1.5mg weekly Lantus 6 units every morning Humalog 4 units before meals For sugars over 160: take 6 units For sugars over 200: take 8 units Seen by [facility] every 4-5 mos; letter sent to get [...] daily for skin breakdown and infection (sees pharmacy technician trainee regularly). Will update labs today. Verified phone #/address to contact re: results. Assessment & Plan (11/02/2022 2:43 PM AUXILIARY EQUIPMENT OPERATOR): Well controlled, with risk of hypoglycemia [...] Ross Assessment & Plan (09/07/2020 2:26 PM AUXILIARY EQUIPMENT OPERATOR): Hba1c was Lab Results Component Value [...] Trulicity. Assessment & Plan (12/09/2019 2:03 PM AUXILIARY EQUIPMENT OPERATOR): Your Hba1c today was: Lab Results Component Value Date HGBA1C 9.3 12/09/2019 meaning a 3 month average sugar of : 224 Your goal hba1c is under 7.0 to prevent custodial diabetes complications ( eye , kidney and [...] hypoglycemia. Assessment & Plan (10/24/2018 1:00 PM AUXILIARY EQUIPMENT OPERATOR): Stable BG pattern 100-140 reported since last adjustment to plan. No change today. BG goals reviewed. Advised to lower Lantus by 2 units if FBG are < 100 x 2 days/wk. For planned activity, reduce Humalog dose by 1/2 at preceding meal. Assessment & Plan (09/19/2018 11:11 AM AUXILIARY EQUIPMENT OPERATOR): Your Hba1c today was: Lab Results Component Value Date HGBA1C 5.1 09/19/2018 meaning a 3 month average sugar of : 81 Your goal hba1c is under 7.0 to prevent keno terminal operator diabetes complications ( eye , [...] time. Assessment & Plan (12/11/2017 10:47 AM AUXILIARY EQUIPMENT OPERATOR): Hba1c was .5.4 Today, 1800 calorie, [...] 05/22/2019 Assessment & Plan (09/19/2018 11:20 AM AUXILIARY EQUIPMENT OPERATOR): Prevention and treatment of hypoglycemia were [...] therapy Assessment & Plan (10/24/2018 12:57 PM AUXILIARY EQUIPMENT OPERATOR): Check lipid panel Assessment & Plan (06/18/2018 2:31 PM CDT): Continue statin therapy Assessment & Plan (02/08/2018 11:00 AM CDT): Continue atorvastatin Assessment & Plan (12/11/2017 10:45 AM AUXILIARY EQUIPMENT OPERATOR): Goal of treatment , LDL cholesterol [...] Encounters Date Type Department Care Team Description 05/22/2025 10:00 AM CDT Ancillary Procedure [facility] Cardiology at [address] [place] [id number] NSTEMI (non-ST elevated myocardial infarction) (HCC) 04/28/2025 Orders Only [facility] [address] [place] [address] Rory An MD 04/28/2025 Telephone [facility] [address] [place] [address] Dank Hicks MD 04/22/2025 9:45 AM CDT Ancillary Procedure [facility]iology [address], [place] [address] Cardiac pacemaker in situ; Asystole (HCC); Syncope and collapse; Symptomatic bradycardia from Last 3 Months Surgical History Surgery Date Site/Laterality Comments OTHER SURGICAL HISTORY Coronary artery disease: CABG Medical History Medical History Date Comments Chronic coronary artery disease Coronary artery disease Type 2 diabetes mellitus Diabete s type 2 Hypertension Hypertension Hx Other Medical [...] 0.6 oz pur e alcohol) [facility] Utilities Answer Date Recorded In the past 12 months has [employer], gas, oil, or water [employer] threatened to shut off services in your [...] any time in the past 12 [facility], were you homeless or living in a assisted (including now)? No 10/23/2024 Personal Safety Answer Date Recorded Have you ever been in or are you currently in a harmful physical or emotional relationship or is someone making you feel afraid or unsafe? Denies 10/22/2024 Sex and Gender Information Value Date Recorded Sex Assigned at Not on file Legal Sex Male 7:27 PM AUXILIARY EQUIPMENT OPERATOR Gender Identity Not on file Sexual Orientation Not on file Obstetrics History Last Filed Vital Signs Vital Sign Reading Time Taken Comments Blood Pressure 102/58 11/24/2024 9:58 AM AUXILIARY EQUIPMENT OPERATOR Pulse 75 11/24/2024 9:58 AM AUXILIARY EQUIPMENT OPERATOR Temperature 36.3 C (97.3 F) 10/25/2024 2:15 PM AUXILIARY EQUIPMENT OPERATOR Respiratory Rate 20 11/24/2024 9:58 AM AUXILIARY EQUIPMENT OPERATOR Oxygen Saturation 100% 10/25/2024 1:15 PM AUXILIARY EQUIPMENT OPERATOR Inhaled Oxygen Concentration - - Weight 91.3 kg (201 lb 4.5 oz) 10/22/2024 8:29 P M AUXILIARY EQUIPMENT OPERATOR Height 170.2 cm (5' 7.01) 11/24/2024 9:58 AM CS T Body Mass Index 31.52 10/22/2024 8:29 PM AUXILIARY EQUIPMENT OPERATOR Plan of Treatment Health Maintenance Due Date [...] 10/23/2024, 022 Medical Devices Implanted Type Area Air Tucker Device Identifier Shelf Expiration Date Model / Serial / Lot [employer] Micra 2 Av Synchronous Leadless Ventricular Pacemaker [id number] - [id number] - [id number] Implanted:Qty: 1 on 10/24/2024 by Darien Jamil Jr., MD at [facility] [employer] 02/16/2026 [id number] / [id number] / Procedures Procedure Name Priority Date/Time Associated [...] POCT HEMOGLOBIN A1C Routine 11/24/2024 10:01 AM AUXILIARY EQUIPMENT OPERATOR Type 2 diabetes mellitus with hyperglycemia, with long-term current use of insulin (CMS/HCC) EGFR Routine 10/25/2024 5:48 AM AUXILIARY EQUIPMENT OPERATOR HEPATITIS PANEL, ACUTE Routine 10/23/2024 2:45 PM AUXILIARY EQUIPMENT OPERATOR HM DIABETES EYE EXAM Routine 08/13/2024 [...] Read Routine (OP Routine) 12/05/2021 11:53 AM AUXILIARY EQUIPMENT OPERATOR End stage renal disease (HCC) from Last 3 Months or Most Recently Relevant to Health Maintenance Results * NM MPI SPECT (Rest and/or Stress) Multiple Studies (05/22/2025 12:04 PM CDT) Anatomical Region Laterality Modality Body N/A Electrocardiogra phy 05/22/2025 10:0 0 AM CDT Narrative 05/22/2025 1:01 PM CDT [facility] [address] [id number] [address], [place] [address] [address] [place] [address] P:[phone] P:[phone] MPI Imaging Report Patient Name: BRANDIE MORRISSEY R : 1945 Study Date: 05/22/2025 10:00:00 AM Gender: M Tech: [facility] Location: [facility] Provider: HYACINTH CORREIA Height(Cm): 170.2 BSA: Weight(Kg): 91.3 Heart Rate: 121 BMI: 31.52 Order Provider: HYACINTH CORREIA PHYSICIAN: Primary Care Physician: Dr. Carrion. [facility] [place] [facility] Physician: Dank Hicks M.D.,DanaeCJames Stress Supervision: Dank Hicks M.D.,Jasen Stress Interpreting Physician: Dank Hicks M.D.,RandiCJamesCJames Image Interpreting Physician: Dank Hicks M.D.,[facility]. PROCEDURES: [...] ischemia. Electronically Signed By: Dank Hicks MD, [facility] 05/22/2025 1:00:48 PM CDT Electronically Signed By: Dank Hicks MD, [facility] 05/22/2025 1:00:48 PM CDT Procedure Note Dank Hicks MD - 05/22/2025 [facility]iology [address], [place] [address] [address], [place] [address], [place] [address] P:[phone] P:[phone] MPI Imaging Report Patient Name: BRANDIE MORRISSEY R : 1945 Study Date: 05/22/2025 10:00:00 AM Gender: M Tech: SHELBY PEPPER Location: [facility] Provider: HYACINTH CORREIA Height(Cm): 170.2 BSA: Weight(Kg): 91.3 Heart Rate: 121 BMI: 31.52 Order Provider: HYACINTH CORREIA PHYSICIAN: Primary Care Physician: Dr. Carrion. [facility] Physician: Dank Hicks M.D.,F.A.CJamesC. Stress Supervision: Dank Hicks M.D.,F.A.C.C. Stress Interpreting Physician: Dank Hicks M.D.,F.A.CJamesC. Image Interpreting Physician: Dank Hicks M.D.,F.A.C.C. PROCEDURES: Pharmacologic SPECT Report: Myocardial perfusion imaging [...] ischemia. Electronically Signed By: Dank Hicks MD, [facility] 05/22/2025 1:00:48 PM CDT Electronically Signed By: Dank Hicks MD, [facility] 05/22/2025 1:00:48 PM CDT us Hyacinth Correia MD IMG NM PROCEDURES Final Res ult * Cardiology Document Scan (04/27/2025 3:08 PM CDT) Anatomical Region Laterality Modality Other us Hyacinth Correia MD [facility] PROCEDU RES Final Result * Cardiology Document Scan (04/26/2025 3:05 PM CDT) Anatomical Region Laterality Modality Other us Rory Juve RUSS CV CARDIAC SERVICES PROCEDU RES Final Result * Cardiology Document Scan (04/25/2025 3:03 PM CDT) Anatomical Region Laterality Modality Other Result [facility] Rory Juve RUSS CV CARDIAC SERVICES PROCEDU RES Final Result * Cardiology Document Scan (04/24/2025 2:49 PM CDT) Anatomical Region Laterality Modality Other Result [facility] Rory Juve RUSS CV CARDIAC SERVICES PROCEDU RES Final Result * POCT hemoglobin A1c (11/24/2024 10:01 AM AUXILIARY EQUIPMENT OPERATOR) Hemoglobin A1C, POC 4.9 4.0 - 5.6 % Blood 11/24/2024 10:0 1 AM AUXILIARY EQUIPMENT OPERATOR Result [facility] Bertha Pinto NP POINT OF CARE TEST ORDERA BLES Final Result * (ABNORMAL) eGFR (10/25/2024 5:48 AM AUXILIARY EQUIPMENT OPERATOR) eGFR 9(L) >=60 mL/min/1. 73 m2 [...] last reviewed 2021. Blood 10/25/2024 5:48 AM AUXILIARY EQUIPMENT OPERATOR 10/25/2024 6:03 AM AUXILIARY EQUIPMENT OPERATOR Raisa Scherer ED MANAGER LAB BLOOD ORDERABLES Jeaneth l Result Performing Organization Address City/[facility]/ZIP Co de Phone Number [place] [address] [place] [address] * Hepatitis panel, acute Blood (10/23/2024 2:45 PM AUXILIARY EQUIPMENT OPERATOR) Hep A IgM Nonreactive Nonreactive Comment: Interpretive Data: If Hep A IgM Ab is reported as Equivocal, a new sample should be drawn in two weeks for testing. Current interpretive data was last revised on 20. Hep B core IgM Nonreactive Nonreactive [facility] Comment: Interpretive Data If HepB Core IgM Ab is reported as Equivocal, a new sample should be drawn in two weeks for testing. Current interpretive data was last revised on 20. Hep C Ab Nonreactive Nonreactive [facility] Comment: Interpretive Data Nonreactive: Antibodies to HCV [...] last revised on 2020. HepBsAg Nonreactive Nonreactive [facility] Blood 10/23/2024 2:45 PM AUXILIARY EQUIPMENT OPERATOR 10/23/2024 2:46 PM AUXILIARY EQUIPMENT OPERATOR Sherrill Christianson MD LAB MICROBIOLOGY - GENERAL ORDERABLES Final Result Performing Organization Address City/[facility]/ZIP Co de Phone Number [place]IA [place] [address] [place] [address] * (ABNORMAL) DIABETES EYE EXAM (08/13/2024 9:40 [...] Ratio, Ur 6,645(H) 1 - 29 mg/g [facility] Urine 03/10/2024 8:46 AM CDT 03/11/2024 9:11 AM CDT us Bertha Pinto NP LAB URINE ORDERABLES Jeaneth mari Result [facility] [address] Department [place] [address] * (ABNORMAL) Lipid panel (03/03/2024 9:29 AM [...] BLOOD ORDERABLES Jeaneth mari Result [place] [place] [address] Department [place] [address] * CT Abdomen Pelvis WO Contrast (12/05/2021 11:53 AM AUXILIARY EQUIPMENT OPERATOR) Anatomical Region Laterality Modality Body N/A Computed Tomogra phy 12/05/2021 12:0 4 PM AUXILIARY EQUIPMENT OPERATOR Impressions 12/05/2021 12:04 PM AUXILIARY EQUIPMENT OPERATOR Bone windows show no suspicious lytic or blastic lesions. IMPRESSION: 1. 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 2. 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 Electronically signed by: Ryan Cameron M.D. Narrative 12/05/2021 12:04 PM AUXILIARY EQUIPMENT OPERATOR EXAMINATION: Computed tomography of the abdomen/pelvis [...] adeniform shape. There is atrophy of both bill moore's slough kidneys. Adjacent fat stranding is likely related [...] adeniform shape. There is atrophy of both bill moore's slough kidneys. Adjacent fat stranding is likely related [...] by: Ryan Cameron M.D. Alex Ceballos MD [facility] [place] PROCEDURES Final Re sult from Last 3 Months or Most Recently Relevant to Health Maintenance Insurance MEDICARE FOR LIFE FOR LIFE Member Subscriber Plan / Payer (Ef fective 2021-) Name:Brandie Morrissey Jr. Relation to Subscriber:Self Name:Brandie Morrissey Jr. Payer ID:[id number] (NAIC) Group ID:[id number] Type: Address: [place] [phone] MEDICARE MEDICARE FOR LIFE Care Teams Sew On Operator Relationship Specialty Start Date End Date Mariza Carrion MD [address] [address] [place] [address] PCP - General Family Practice 03/05/23 Efren Hoyos MD Referring Physician Ophthalmology 06/16/19 Dank Hicks MD [address] [facility] [address] [place], [place] [id number] Consulting Physician Cardiology 10/11/21
--- OUTSIDE RECORDS SUMMARY | 2025-05-29 05:47 | XMS_ITS | Clinical Summary ---
Author Organization [facility] Facility Address [address] [address] Care Team Providers Care Marine Fuel Dock Attendant Name Role Phone Murali Dawkins MD Primary [...] age to complete this topic Insurance Medicare [facility] Care Teams Marine Fuel Dock Attendant Relationship Specialty Start Date End Date Murali Dawkins MD [address] [place] [address] PCP - General Family Medicine 10/28/24
--- OUTSIDE RECORDS SUMMARY | 2025-05-29 05:47 | XMS_ITS | Clinical Summary ---
Author Organization [employer] [facility] Address [address] [place] [address] Care Team Providers Care Traction Power Engineer Name Role Phone Mariza Carrion MD Primary Care Provider Source Comments [facility],non-owned Affiliates and Associated Physician Practices is amultiple site organization consisting of ambulatory clinics and hospital sitesin [place], [place], [place] and [place]. This disclosure is being madepursuant to the Care Everywhere program and may not contain all information available regarding this patient. Last updated 18.[facility] Allergies No known active allergies Medications * [...] Use pads 5 times daily 8 Active obytv-4-uuai ethyl esters (LOVAZA) 1 g capsule Take [...] FOR MUSCLE SPASM 4 Active HYDROcodone-ac etaminophen (Hardy) 5-325 MG tablet 4 Active Lokelma 10 [...] - 04/29/2025 11:59 PM CDT Hospital Encounter [facility] OP DRAW STATION [address] [place] [phone] Discharge Disposition: Home or Self Care 04/29/2025 Travel 04/03/2025 11:24 AM CDT - 04/03/2025 11:59 PM CDT Hospital Encounter [facility] [address], [address] [place] [address] Matt Beyer, Discharge Disposition: Home or Self [...] and heating? Not hard at all 04/06/2023 [facility] - Occupational Stress [...] place to sleep or slept in a intermediate (including now)? No 04/06/2023 Sex and Gender [...] st Contact Info) Description 10/02/2025 1:00 PM MICROWAVE RADIO TECHNICIAN Appointment [facility] [address], [address] [place] [address] [place] [address] [place] [address] Health Maintenance Due Date Last [...] this topic Medical Devices Implanted Type Area Supervisor Propellant Charge Loading Device Identifier Shelf Expiration Date Model / Serial / Lot Mynxgrip Vascular Closure Device Implanted:Qty: 1 on 04/11/2023 by Matt Beyer DO at [facility] Right: Groin 01/19/2025 [id number] / [id number] / [id number] 5tch Cv 6x1cm Photofix Decellularized Implanted:Qty: 1 on 04/20/2023 by Matt Beyer DO at [facility] N/A: Other (See Descriptio n) [employer] 01/28/2024 [id number] / / [id number] Description:LEFT FEMORAL ART BARI Procedures Procedure Name Priority Date/Time Associated Diagnosis Comments COMPREHENSIVE METABOLIC PANEL Routine 04/29/2025 11:11 AM CDT Controlled diabetes mellitus type 2 with complications, unspecified whether termination clerk insulin use (HCC) CARDIAC RHYTHM STRIP ORDER 04/07/2025 4:28 PM CDT HEPATITIS SCREEN ACUTE STAT 8:19 AM CDT from Last 3 Months or Most Recently Relevant to Health Maintenance Results * (ABNORMAL) COMPREHENSIVE METABOLIC PANEL (04/29/2025 11:11 AM [facility]) BUN 21 7 - 26 mg/dL 04/29/2025 12:07 PM [facility] Creatinine 4.73(H) 0.71 - 1.16 mg/dL 04/29/2025 12:07 PM [facility] Sodium 135(L) 136 - 145 mmol/L 04/29/2025 12:07 PM [facility] Potassium 3.7 3.5 - 4.5 mmol/L 04/29/2025 12:07 PM [facility] Chloride 100 98 - 107 mmol/L 04/29/2025 12:07 PM [facility] CO2 29 22 - 29 mmol/L 04/29/2025 12:07 PM [facility] Glucose 111(H) 70 - 99 mg/dL 04/29/2025 12:07 PM [facility] Calcium 9.0 8.4 - 10.2 mg/dL 04/29/2025 12:07 PM [facility] Protein Total 6.2 6.0 - 8.3 g/dL 04/29/2025 12:07 PM [facility] Albumin 2.7(L) 3.4 - 5.0 g/dL 04/29/2025 12:07 PM [facility] Bilirubin Total 0.3 0.2 - 1.2 mg/dL 04/29/2025 12:07 PM [facility] Alkaline Phosphatase 76 40 - 150 U/L 04/29/2025 12:07 PM [facility] ALT 135(H) 5 - 55 U/L 04/29/2025 12:07 PM [facility] AST 20 5 - 34 U/L 04/29/2025 12:07 PM [facility] Anion Gap 6 6 - 16 04/29/2025 12:07 PM [facility] BUN/Creatinine Ratio 4(L) 7 - 23 04/29/2025 12:07 PM [facility] Osmolality Calculated 284 275 - 295 mOsm/kg 04/29/2025 12:07 PM [facility] Albumin/Globulin Ratio 0.8(L) 1.1 - 2.3 04/29/2025 12:07 PM CDT [facility] eGFR by CKD-EPI 12(L) >=90 mL/min/1.7 3 m2 04/29/2025 12:07 PM CDT [facility] Comment:Estimated Glomerular Filtration Rate (eGFR) calculated using the CKD-EPI Creatinine Equation (2020), per the National Kidney Foundation and Canadian Society of Nephrology recommendations. Blood BLOOD SPECIMEN / Unknown Lab Venipuncture / Unknown 04/29/2025 11:11 AM CDT 04/29/2025 11:34 AM CDT Keven Roe DO LAB - CHEMISTRY RJ AYALA Final Result [facility] [address] [place] [address], [facility] [phone] * CARDIAC RHYTHM STRIP ORDER (04/07/2025 4:28 PM CDT) Narrative 04/07/2025 4:28 PM CDT Ordered by an unspecified provider. Scanned Document CARDIAC SERVICES ORDERABLES Fin al Result * HEPATITIS SCREEN ACUTE (04/07/2023 8:19 AM CDT) HAV Antibody IgM Non Reactive Non Reactive 04/07/2023 9:28 AM CDT [facility] HBsAg Non Reactive Non Reactive 04/07/2023 9:28 AM CDT [facility] HBc Antibody IgM Non Reactive Non Reactive 04/07/2023 9:28 AM CDT [facility] HCV Antibody Screen Non Reactive Non Reactive 04/07/2023 9:28 AM CDT [facility] Blood BLOOD SPECIMEN / Unknown Venipuncture / Unknown 04/07/2023 8:19 AM CDT 04/07/2023 8:31 AM CDT Narrative [facility] - 04/07/2023 9:28 AM CDT Non Reactive - Antibodies to Hepatitis C virus (HCV) were not detected, result does not exclude early acute HCV infection. us Marito Rios MD LAB - CHEMISTRY ORDERABLES Jeaneth l Result [facility] [address] [place] [address] from Last 3 Months or Most Recently Relevant to Health Maintenance Insurance [employer] Address: [address] [phone] MEDICARE SELF PAY NO INSURANCE Member Subscriber Plan / Payer (Ef fective for All Dates) Name:Brandie Morrissey Jr Member ID:Not on file Relation to Subscriber:Not on file Name:BRANDIE MORRISSEY JR Subscriber ID:Not on file (Home) Address: [address] [place] [id number] Payer ID:Not on file Group ID:Not on file Type:Self Pay Address: [place], [place] MEDICARE Advance Directives Documents on File Type Date Recorded Patient Groundwater Consultant Expl anation Adv Directive/Living Will/POA 05/02/2023 3:49 PM * Full Code (Latest Code Status on File) Date Activated Date Inactivated Comments 04/06/2023 9:49 AM 05/01/2023 4:44 PM Care Teams Traction Power Engineer Relationship Specialty Start Date End Date Mariza Carrion MD [address] [place] [address] PCP - General Family Medicine 08/26/18
[2025-05-29] MEDS: SIMETHICONE ORAL SUSPENSION 20 MG/0.3 ML 30 ML BOTTLE 1.8 ML PO (06:05)
--- NOTE | 2025-05-29 06:25 | SUR.OPER ---
Patient brought to GI Lab. Instructions for patient undergoing Capsule Endoscopy reviewed with patient. Consent form signed. Sensor array applied to patient's abdomen and connected to recorded. Patient swallowed capsule with 14 ozs of water infused with Simethicone. Patient instructed they may have clear liquids at 0815 this AM and eat or drink at 1015 this AM. Patient instructed to return to GI Lab at 1500 this afternoon for removal of recording device and to call [phone] or to return to the hospital if any nausea and vomiting or abdominal pain is experienced.
--- NOTE | 2025-05-29 14:51 | SUR.PREOP ---
Patient returned to the GI Lab at 1448 for recorder box removal. Patient voiced no complaints. States they have understanding of instructions. Patient left with group home transportation.
== END 2025-05-29 05:44 | disposition home or self-care (01) ==
PROVIDERS: PCP Family Medicine; Referring Provider Internal Medicine Gastroenterology; Visit Provider Internal Medicine Gastroenterology
PROC: 0DJ07ZZ Inspection of Upper Intestinal Tract, Via Natural or Artificial Opening (ICD-10-PCS; CPT 91110; principal; 2025-05-29 07:00)
DX: K92.1 Melena (principal); Z01.818 Encounter for other preprocedural examination
CPT/HCPCS: 91110

== ENCOUNTER 2025-06-12 01:09 | Day surgery (SDC) | payer MEDICARE, OTHER, SELFPAY ==
[2025-06-11 14:37] VITALS: BMI 28.7
[2025-06-12 13:21] VITALS: BP 135/66; PULSE 80; RESP 18; TEMP 36.1; O2SAT 93; BMI 27.6
--- NOTE | 2025-06-12 13:23 | WPDANESEPPF ---
Anes - Initial Pre Proc Eval Procedure: Operation Date: 06/12/25 14:30 Proposed Procedures p Esophagogastroduodenoscopy with Push Enteroscopy - Donnell Jesus MD Date/Time: 06/12/25 13:23 Surgeon: Donnell Jesus MD Pre Op Diagnosis: SMALL BOWEL GI BLEED Patient Data Age: 80 Gender: M Height: 1.7 m Weight: 83.1 kg Allergies Allergy/AdvReac Type Severity Reaction Status Date / Time baclofen Allergy Severe encephalopa Verified 06/12/25 13:17 thy Home Medications ?Medication ?Instructions ?Recorded ?Confirmed ?Type aspirin 81 mg tablet,delayed 81 mg PO DAILY 10/31/21 06/12/25 History release carvedilol 25 mg tablet 25 mg PO BID 10/31/21 06/12/25 History insulin lispro 100 unit/mL 4 unit subcut .TIDAC 10/31/21 06/12/25 History subcutaneous pen loratadine 10 mg tablet (Claritin) 10 mg PO DAILY 10/31/21 06/12/25 History insulin glargine 100 unit/mL (3 6 unit subcut HS 11/07/23 06/12/25 History mL) subcutaneous pen (Lantus Solostar U-100 Insulin) cinacalcet 90 mg PO DAILY 12/12/23 06/12/25 History atorvastatin 20 mg tablet 20 mg PO HS 12/21/24 05/26/25 History finasteride 5 mg tablet (Proscar) 5 mg PO QAM #30 tabs 12/23/24 06/12/25 Rx furosemide 80 mg tablet 80 mg PO BID #60 tabs 12/23/24 06/12/25 Rx tamsulosin 0.4 mg capsule 0.4 mg PO QHS #30 caps 12/23/24 06/12/25 Rx acetaminophen 325 mg tablet 650 mg (2 x 325 mg) PO Q4H PRN 01/10/25 06/11/25 Rx Mild Pain (1-3) Or Fever #60 tabs pentoxifylline 400 mg 400 mg PO QPM 01/29/25 06/12/25 History tablet,extended release bisacodyl 10 mg rectal suppository 10 mg RECTAL DAILY PRN constipation 02/16/25 06/11/25 History (Laxative (bisacodyl)) gabapentin 100 mg capsule 100 mg PO TID 02/16/25 06/12/25 History liraglutide 0.6 mg/0.1 mL (18 mg/3 1.2 mg subcut HS 02/16/25 06/12/25 History mL) subcutaneous pen injector magnesium citrate (Citroma oral 296 ml PO .AM PRN constipation 02/16/25 06/11/25 History solution) magnesium hydroxide 400 mg/5 mL 30 ml PO HS PRN constipation 02/16/25 06/11/25 History oral suspension (Milk of Magnesia) sodium phosphates 19 gram-7 118 ml RECTAL DAILY PRN 02/16/25 06/11/25 History gram/118 mL enema (Fleet Enema) constipation vitamin B complex 1 cap PO DAILY 02/16/25 06/11/25 History ipratropium 20 mcg-albuterol 100 1 puff inhalation Q6H PRN 03/10/25 06/11/25 History mcg/actuation mist for inhalation shortness of breath or wheezing (Combivent Respimat) loperamide 2 mg capsule 2 mg PO Q4H PRN loose stool 03/10/25 06/11/25 History melatonin 3 mg tablet 3 mg PO HS 03/10/25 06/12/25 History tramadol 50 mg tablet 50 mg PO BID 03/10/25 06/12/25 History umeclidinium 62.5 mcg/actuation 1 inh inhalation DAILY 03/10/25 06/12/25 History blister powder for inhalation (Incruse Ellipta) levalbuterol HCl 0.63 mg/3 mL 0.63 mg (3 mL) inhalation Q6H PRN 03/19/25 06/11/25 Rx solution for nebulization shortness of breath or wheezing #90 mL levalbuterol HCl 1.25 mg/3 mL 0.63 mg (1.512 mL) inhalation 03/19/25 06/11/25 Rx solution for nebulization Q6HRT #30 vials sevelamer carbonate 0.8 gram oral 0.8 g PO TIDWM #60 grams 03/19/25 06/12/25 Rx powder packet apixaban 2.5 mg tablet (Eliquis) 2.5 mg PO Q12HR #60 tabs 03/27/25 06/12/25 Rx amlodipine 5 mg tablet (Norvasc) 5 mg PO DAILY #30 tabs 05/15/25 06/12/25 Rx ascorbic acid (vitamin C) 500 mg 500 mg PO DAILY 06/11/25 06/12/25 History tablet cyanocobalamin (vitamin B-12) 2,500 mcg PO DAILY 06/11/25 06/12/25 History 2,500 mcg tablet multivitamin (Daily Multi-Vitamin 1 tablet PO DAILY 06/11/25 06/12/25 History tablet) naloxone 4 mg/actuation nasal 1 spray intranasal Q2-3M PRN 06/11/25 06/11/25 History spray (Narcan) opioid overdose zinc sulfate 50 mg zinc (220 mg) 50 mg PO DAILY 06/11/25 06/12/25 History capsule (Zinc-220) Patient hx anesthesia problems: none Family hx anesthesia problems: none Results Review: All pre-operative results and documents have been reviewed as part of the pre-operative evaluation. [facility] Past Medical History Medical History AVM (arteriovenous malformation) of small bowel, acquired Shock circulatory Pulmonary hypertension AVM (arteriovenous malformation) of colon, acquired with hemorrhage Chronic anticoagulation Insulin dependent type 2 diabetes mellitus (~2009) Chronic obstructive pulmonary disease Diabetic polyneuropathy Coronary artery disease Anemia Atrial fibrillation Chronic neck and back pain Insomnia History of nephrolithiasis Sinus pause (~09/2024) Obstructive sleep apnea Intolerant to CPAP Benign prostatic hyperplasia Peripheral vascular disease (~03/2023) Internal hemorrhoid, bleeding End-stage renal disease on hemodialysis DVT dialysis Sunday History of colon polyps Environmental allergies Vitamin D deficiency Dyslipidemia Essential (primary) hypertension Surgical History Surgical History History of cardiac pacemaker (~10/2024) Medtronic pacemaker placed due to symptomatic sinus pauses causing syncope performed at [facility] Status post cataract extraction of both eyes with insertion of intraocular lens History of colonoscopy with polypectomy History of hemorrhoidectomy (~01/12/24) Anorectal evaluation under anesthesia and excisional hemorrhoidectomy x3 12/14/23 [facility] S/P peripheral artery angioplasty (~03/2023) status post balloon angioplasty of bilateral common and external iliac arteries status post left iliofemoral endarterectomy Arteriovenous fistula of left upper extremity (~2018) History of appendectomy (~1963) History of coronary artery bypass graft (~2013) Family History Family History Mother Diabetes mellitus Acute myocardial infarction Family history of congestive heart failure Father Hypertension Social History Social History (Updated 06/12/25 @ 13:25 by Sean Berumen MD) Social History: The patient is . He and his brother live together prior to his hospitalization November or December 2024 and subsequent placement in to [facility]. He is retired after 26 years of serving in the [employer]. He has 4 children. He used to smoke 1.5-2 packs of cigarettes per day but quit smoking in approximately 2009. He will on a rare occasion drink an alcoholic beverage maybe 2 to 3 times a year. He denies illicit substance use. Surrogate medical decision maker: Wilian Morrissey, sibling Caffeine- daily Smoking packs per day: 1.5 Smoking cigarettes per day: 30.0 Years smoked: 44 Smoking pack-years: 66.00 Smoking status: Former smoker Second hand tobacco smoke exposure: No Alcohol intake: unknown Alcohol use details: Maybe 2-3 per year Substance use: never Substance use type: does not use Do You Feel Safe in your Home?: Yes Lack of Transportation: No Lack of Food: Never True Current Housing: I Have Housing Concerned About Future Housing: No Difficulty Paying Gas/Electric Bills: No Difficulty Paying for Meds: No Currently Unemployed: No Education: Don't Know Difficulty w/ Childcare or Family Care: No Living arrangements: prison Occupation/Education: retired Additional occupation/education comments: Retired from the [employer]. 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 Spiritual care concerns: No Agree to blood products: Yes Anes - Eval Final PreProcedure Day of Procedure 06/12/25 13:23 Patient weight: overweight Heart: regular rate and rhythm Lungs: clear to auscultation Airway: Mallampati scale class II Neurological: alert and oriented Last oral intake: >/= 8 hours ASA classification: IV Emergent: no Anesthetic plan: proceed Anesthesia type and monitoring: general GIVS and standard monitoring Results Review: All pre-operative results and documents have been reviewed as part of the pre-operative evaluation. Informed Consent: The patient's anesthetic plan and its attendant risks and benefits were discussed with the patient/family/POA. Questions were solicited and answers provided to the satisfaction of the patient/family/POA.
[2025-06-12] MEDS: LACTATED RINGERS 1,000 ML 150 ML IV CONT (13:50)
[2025-06-12 14:07] VITALS: BP 84/72; PULSE 71; RESP 18; O2SAT 91
[2025-06-12 14:17] VITALS: BP 87/77; PULSE 82; RESP 20; O2SAT 92
[2025-06-12 14:27] VITALS: BP 108/50; PULSE 73; RESP 19; O2SAT 93
--- NOTE | 2025-06-12 15:08 | SUR.PHASEII ---
Report given to KARLEY Delarosa at facility. Nurse verbalized understand that patient is to hold Eliquis for 5 days. Discharge paperwork sent with patient also stating to restart Eliquis is 5 days.
--- NOTE | 2025-06-12 15:29 | SUR.PHASEII ---
As patient was being wheeled in wheelchair into transport vehicle, patient dropped right foot off of foot pedal and hit on ground. Upon assessment, found old ulcer on right heel, no new bleeding or wound on assessment. Patient stated he was okay and was discharged back to facility
--- NOTE | 2025-06-12 16:09 | PM.HPGS ---
History of Present Illness History of Present Illness Consent: Risks, benefits, and alternatives have been discussed and questions answered. Patient agrees to proceed with procedure. Chief complaint: SMALL BOWEL GI BLEED Narrative: Sam Morrissey is a 80 year old male with gib and anemia, recent colonoscopy with [facility], completed SB capsule endoscopy that showed oozing in duodenum/proximal jejunum. Here for egd with push enteroscopy. He is on eliquis. Review of Systems Review of Systems: All systems reviewed & are unremarkable except as noted in HPI and below PMFSH Past Medical History Medical History AVM (arteriovenous malformation) of small bowel, acquired Shock circulatory Pulmonary hypertension AVM (arteriovenous malformation) of colon, acquired with hemorrhage Chronic anticoagulation Insulin dependent type 2 diabetes mellitus (~2009) Chronic obstructive pulmonary disease Diabetic polyneuropathy Coronary artery disease Anemia Atrial fibrillation Chronic neck and back pain Insomnia History of nephrolithiasis Sinus pause (~09/2024) Obstructive sleep apnea Intolerant to CPAP Benign prostatic hyperplasia Peripheral vascular disease (~03/2023) Internal hemorrhoid, bleeding End-stage renal disease on hemodialysis DVT dialysis Sunday History of colon polyps Environmental allergies Vitamin D deficiency Dyslipidemia Essential (primary) hypertension Surgical History Surgical History History of cardiac pacemaker (~10/2024) Medtronic pacemaker placed due to symptomatic sinus pauses causing syncope performed at [facility] Status post cataract extraction of both eyes with insertion of intraocular lens History of colonoscopy with polypectomy History of hemorrhoidectomy (~01/12/24) Anorectal evaluation under anesthesia and excisional hemorrhoidectomy x3 12/14/23 SAW S/P peripheral artery angioplasty (~03/2023) status post balloon angioplasty of bilateral common and external iliac arteries status post left iliofemoral endarterectomy Arteriovenous fistula of left upper extremity (~2017) History of appendectomy (~1962) History of coronary artery bypass graft (~2013) Family History Family History Mother Diabetes mellitus Acute myocardial infarction Family history of congestive heart failure Father Hypertension Social History Social History (Updated 06/12/25 @ 13:25 by Sean Berumen MD) Social History: The patient is . He and his brother live together prior to his hospitalization November or December 2024 and subsequent placement in to [facility]. He is retired after 26 years of serving in the [employer]. He has 4 children. He used to smoke 1.5-2 packs of cigarettes per day but quit smoking in approximately 2009. He will on a rare occasion drink an alcoholic beverage maybe 2 to 3 times a year. He denies illicit substance use. Surrogate medical decision maker: Wilian Morrissey, sibling Caffeine- daily Smoking packs per day: 1.5 Smoking cigarettes per day: 30.0 Years smoked: 44 Smoking pack-years: 66.00 Smoking status: Former smoker Second hand tobacco smoke exposure: No Alcohol intake: unknown Alcohol use details: Maybe 2-3 per year Substance use: never Substance use type: does not use Do You Feel Safe in your Home?: Yes Lack of Transportation: No Lack of Food: Never True Current Housing: I Have Housing Concerned About Future Housing: No Difficulty Paying Gas/Electric Bills: No Difficulty Paying for Meds: No Currently Unemployed: No Education: Don't Know Difficulty w/ Childcare or Family Care: No Living arrangements: halfway Occupation/Education: retired Additional occupation/education comments: Retired from the [employer]. 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 Spiritual care concerns: No Agree to blood products: Yes Meds Home Medications and Allergies Home Medications ?Medication ?Instructions ?Recorded ?Confirmed ?Type aspirin 81 mg tablet,delayed 81 mg PO DAILY 10/31/21 06/12/25 History release carvedilol 25 mg tablet 25 mg PO BID 10/31/21 06/12/25 History insulin lispro 100 unit/mL 4 unit subcut .TIDAC 10/31/21 06/12/25 History subcutaneous pen loratadine 10 mg tablet (Claritin) 10 mg PO DAILY 10/31/21 06/12/25 History insulin glargine 100 unit/mL (3 6 unit subcut HS 11/07/23 06/12/25 History mL) subcutaneous pen (Lantus Solostar U-100 Insulin) cinacalcet 90 mg PO DAILY 12/12/23 06/12/25 History atorvastatin 20 mg tablet 20 mg PO HS 12/21/24 05/26/25 History finasteride 5 mg tablet (Proscar) 5 mg PO QAM #30 tabs 12/23/24 06/12/25 Rx furosemide 80 mg tablet 80 mg PO BID #60 tabs 12/23/24 06/12/25 Rx tamsulosin 0.4 mg capsule 0.4 mg PO QHS #30 caps 12/23/24 06/12/25 Rx acetaminophen 325 mg tablet 650 mg (2 x 325 mg) PO Q4H PRN 01/10/25 06/11/25 Rx Mild Pain (1-3) Or Fever #60 tabs pentoxifylline 400 mg 400 mg PO QPM 01/29/25 06/12/25 History tablet,extended release bisacodyl 10 mg rectal suppository 10 mg RECTAL DAILY PRN constipation 02/16/25 06/11/25 History (Laxative (bisacodyl)) gabapentin 100 mg capsule 100 mg PO TID 02/16/25 06/12/25 History liraglutide 0.6 mg/0.1 mL (18 mg/3 1.2 mg subcut HS 02/16/25 06/12/25 History mL) subcutaneous pen injector magnesium citrate (Citroma oral 296 ml PO .AM PRN constipation 02/16/25 06/11/25 History solution) magnesium hydroxide 400 mg/5 mL 30 ml PO HS PRN constipation 02/16/25 06/11/25 History oral suspension (Milk of Magnesia) sodium phosphates 19 gram-7 118 ml RECTAL DAILY PRN 02/16/25 06/11/25 History gram/118 mL enema (Fleet Enema) constipation vitamin B complex 1 cap PO DAILY 02/16/25 06/11/25 History ipratropium 20 mcg-albuterol 100 1 puff inhalation Q6H PRN 03/10/25 06/11/25 History mcg/actuation mist for inhalation shortness of breath or wheezing (Combivent Respimat) loperamide 2 mg capsule 2 mg PO Q4H PRN loose stool 03/10/25 06/11/25 History melatonin 3 mg tablet 3 mg PO HS 03/10/25 06/12/25 History tramadol 50 mg tablet 50 mg PO BID 03/10/25 06/12/25 History umeclidinium 62.5 mcg/actuation 1 inh inhalation DAILY 03/10/25 06/12/25 History blister powder for inhalation (Incruse Ellipta) levalbuterol HCl 0.63 mg/3 mL 0.63 mg (3 mL) inhalation Q6H PRN 03/19/25 06/11/25 Rx solution for nebulization shortness of breath or wheezing #90 mL levalbuterol HCl 1.25 mg/3 mL 0.63 mg (1.512 mL) inhalation 03/19/25 06/11/25 Rx solution for nebulization Q6HRT #30 vials sevelamer carbonate 0.8 gram oral 0.8 g PO TIDWM #60 grams 03/19/25 06/12/25 Rx powder packet apixaban 2.5 mg tablet (Eliquis) 2.5 mg PO Q12HR #60 tabs 03/27/25 06/12/25 Rx amlodipine 5 mg tablet (Norvasc) 5 mg PO DAILY #30 tabs 05/15/25 06/12/25 Rx ascorbic acid (vitamin C) 500 mg 500 mg PO DAILY 06/11/25 06/12/25 History tablet cyanocobalamin (vitamin B-12) 2,500 mcg PO DAILY 06/11/25 06/12/25 History 2,500 mcg tablet multivitamin (Daily Multi-Vitamin 1 tablet PO DAILY 06/11/25 06/12/25 History tablet) naloxone 4 mg/actuation nasal 1 spray intranasal Q2-3M PRN 06/11/25 06/11/25 History spray (Narcan) opioid overdose zinc sulfate 50 mg zinc (220 mg) 50 mg PO DAILY 06/11/25 06/12/25 History capsule (Zinc-220) Allergies Allergy/AdvReac Type Severity Reaction Status Date / Time baclofen Allergy Severe encephalopa Verified 06/12/25 13:17 thy Vital Signs Vital Signs - 24 hr 06/12/25 13:21 06/12/25 14:07 06/12/25 14:17 Temperature 97 F L Pulse Rate 80 71 82 Respiratory Rate 18 18 20 Blood Pressure 135/66 84/72 L 87/77 L Pulse Oximetry 93 91 92 Oxygen Delivery Room Air Nasal Cannula Nasal Cannula Oxygen Flow Rate 6 6 06/12/25 14:27 Temperature Pulse Rate 73 Respiratory Rate 19 Blood Pressure 108/50 L Pulse Oximetry 93 Oxygen Delivery Room Air Oxygen Flow Rate Exam Narrative: WDWN in NAD skin no rash or subQ nodules head ncat lungs clear bilaterally cor irreg irreg no rub or gallop abd BS+ nontender and soft ext no edema or cyanosis Assessment and Plan Assessment and plan (1) GI (gastrointestinal bleed): Qualifiers: GI bleed type/associated pathology: melena Qualified Code(s): K92.1 - Melena Code(s): K92.2 - Gastrointestinal hemorrhage, unspecified Status: Acute Assessment and Plan: egd with push enteroscopy (2) AVM (arteriovenous malformation) of small bowel, acquired: Code(s): K55.20 - Angiodysplasia of colon without hemorrhage Status: Acute
== END 2025-06-12 15:00 | disposition home or self-care (01) ==
PROVIDERS: PCP Family Medicine; Visit Provider Internal Medicine Gastroenterology
PROC: 0DJ08ZZ Inspection of Upper Intestinal Tract, Via Natural or Artificial Opening Endoscopic (ICD-10-PCS; CPT 43255; principal; 2025-06-12 14:30)
DX: K29.70 Gastritis, unspecified, without bleeding (principal); E78.5 Hyperlipidemia, unspecified; E11.42 Type 2 diabetes mellitus with diabetic polyneuropathy; I25.10 Atherosclerotic heart disease of native coronary artery without angina pectoris; D64.9 Anemia, unspecified; I48.91 Unspecified atrial fibrillation; J44.9 Chronic obstructive pulmonary disease, unspecified; G47.00 Insomnia, unspecified; G47.33 Obstructive sleep apnea (adult) (pediatric); N40.0 Benign prostatic hyperplasia without lower urinary tract symptoms; E11.22 Type 2 diabetes mellitus with diabetic chronic kidney disease; I12.0 Hypertensive chronic kidney disease with stage 5 chronic kidney disease or end stage renal disease; N18.6 End stage renal disease; E55.9 Vitamin D deficiency, unspecified; I27.20 Pulmonary hypertension, unspecified; I73.9 Peripheral vascular disease, unspecified; Q27.33 Arteriovenous malformation of digestive system vessel; G89.29 Other chronic pain; M54.9 Dorsalgia, unspecified; M54.2 Cervicalgia; Z79.82 Long term (current) use of aspirin; Z79.85 Long-term (current) use of injectable non-insulin antidiabetic drugs; Z79.891 Long term (current) use of opiate analgesic; Z79.51 Long term (current) use of inhaled steroids; Z79.01 Long term (current) use of anticoagulants; Z79.4 Long term (current) use of insulin; Z99.89 Dependence on other enabling machines and devices; Z99.2 Dependence on renal dialysis; Z98.890 Other specified postprocedural states; Z95.0 Presence of cardiac pacemaker; Z95.1 Presence of aortocoronary bypass graft; Z87.891 Personal history of nicotine dependence; Z87.442 Personal history of urinary calculi; Z86.0100 Personal history of colon polyps, unspecified; Z82.49 Family history of ischemic heart disease and other diseases of the circulatory system
CPT/HCPCS: 43255; 82948; J2704; J7120